=== PATIENT | male | born 1945 | race Caucasian/White ===

== ENCOUNTER 2018-10-01 15:04 | Outpatient (CLI) | payer MEDICARE, BC, SELFPAY ==
--- NOTE | 2018-10-01 11:21 | DI.RAD_ITS ---
SYMPTOM/DIAGNOSIS: NEW ONSET LT LUMBAR PAIN, M54.9, DORSALGIA LUMBOSACRAL SPINE: The vertebral bodies are intact. Prominent hypertrophic spurring and syndesmophyte formation are noted involving T 11-12 and T 12-L 1. There is a narrowed vacuum disc at L 5-S 1. There is rather severe facet joint DJD involving the mid and lower lumbar spine. The pedicle, spinous and transverse processes appear intact. There is no evidence of spondylosis or spondylolisthesis. The sacrum and sacroiliac joints are unremarkable. Incidental note is made of diffuse atherosclerotic changes involving the abdominal aorta and iliac vessels. There is a question regarding the possibility of a small saccular aneurysm at the L 3 level. Further assessment with ultrasound is suggested.
== END 2018-10-01 15:24 ==
PROVIDERS: PCP Family Medicine; Visit Provider Family Medicine
DX: M54.5 Low back pain (principal); M47.817 Spondylosis without myelopathy or radiculopathy, lumbosacral region
CPT/HCPCS: 72110

== ENCOUNTER 2018-10-09 00:45 | Outpatient (CLI) | payer MEDICARE, BC, SELFPAY ==
--- NOTE | 2018-10-09 07:54 | DI.US_ITS ---
SYMPTOM/DIAGNOSIS: SACCULAR ANEURYSM ON XRAY AORTA ULTRASOUND: Aorta ultrasound was performed according to protocol. Comparison is made with xray of 10/01/[address] of abdomen and pelvic dated 03/01/15. There is a question of a small saccular aneurysm arising from the distal abdominal aorta. It measures 1.4 cm. longitudinally by 3.6 cm. AP. The proximal and mid abdominal aorta are of normal caliber. The proximal iliac arteries are normal in caliber. IMPRESSION: Question of a saccular aneurysm involving the distal abdominal aorta measuring 3.[address] scan of the abdomen and pelvis is recommended for further evaluation.
== END 2018-10-09 01:05 ==
PROVIDERS: PCP Family Medicine; Visit Provider Family Medicine
DX: I71.4 Abdominal aortic aneurysm, without rupture (principal)
CPT/HCPCS: 76706

== ENCOUNTER 2018-10-16 00:37 | Outpatient (CLI) | payer MEDICARE, BC, SELFPAY ==
[2018-10-16 08:58] LABS: Anion Gap 5.2 mmol/L (3-11); BUN 19 mg/dL (7-18); CO2 30.8 mmol/L (21.0-32.0); CREATININE 0.99 mg/dL (0.70-1.30); Chloride 105 mmol/L (98-107); Glucose 124 mg/dL (70-100); Potassium 4.8 mmol/L (3.5-5.1); Sodium 141 mmol/L (136-145)
[2018-10-16] MEDS: Omnipaque 350 MG/ML 100 ML BTL IJ (09:56)
--- NOTE | 2018-10-16 10:00 | DI.CT_ITS ---
SYMPTOM/DIAGNOSIS: ANEURYSM SEEN ON US, I72.9 CTA ABDOMEN AND PELVIS: CT angiography was performed with multi slice acquisition and multi planar and 3D reconstruction. Comparison examination is 03/01/15. Comparison ultrasound is 10/09/18. No acute abnormality is seen in the lung bases. Emphysematous changes are noted. The liver, spleen, gallbladder, bile ducts, pancreas and adrenal glands are unremarkable. The kidneys show symmetric and normal enhancement. No obstruction is seen. The urinary bladder is intact. The prostate gland does appear to be enlarged with multiple calcifications. There is diverticulosis of the colon but no evidence of acute diverticulitis. No evidence of bowel obstruction or inflammation is seen. No evidence to suggest an acute appendicitis are present. There is atherosclerosis of the abdominal aorta. Maximum diameter of the abdominal aorta is noted to be 3.0 cm. No evidence of a saccular aneurysm is appreciated. The celiac axis is unremarkable. There is mild calcification of the origin of the superior mesenteric artery but no significant stenosis is seen. The inferior mesenteric artery appears grossly unremarkable. There is calcification seen at the origins of both renal arteries, left greater than right. There does appear to be mild to moderate narrowing at the origin of the left renal artery. Degenerative changes are seen in the spine. IMPRESSION: 1. Maximum diameter of the abdominal aorta is 3.0 cm. consistent with a small abdominal aortic aneurysm. No evidence of a saccular aneurysm is seen. 2. Atherosclerosis of the abdominal aorta and its branches. 3. Diverticulosis of the colon but no evidence of acute diverticulitis. 4. Enlarged prostate gland.
== END 2018-10-16 00:57 ==
PROVIDERS: PCP Family Medicine; Visit Provider Family Medicine
DX: I71.4 Abdominal aortic aneurysm, without rupture (principal); K57.30 Diverticulosis of large intestine without perforation or abscess without bleeding; N40.0 Benign prostatic hyperplasia without lower urinary tract symptoms
CPT/HCPCS: 80048; 74174; J3490

== ENCOUNTER 2019-06-20 13:02 | Emergency (ER) | payer MEDICARE, BC, SELFPAY ==
[2019-06-20] VITALS (36 sets, daily range): BP systolic 121–159; BP diastolic 64–90; PULSE 55–71; RESP 11–34; TEMP 36.7; O2SAT 94–99
--- NOTE | 2019-06-20 13:32 | DI.CT_ITS ---
SYMPTOMS/DIAGNOSIS: LEFT ARM NUMBNESS LAST NIGHT CT BRAIN: Noncontrast examination was performed. Comparison is 12/02/17. The ventricles and sulci are consistent with the patient's age. There are areas of decreased attenuation of the white matter consistent with small vessel ischemic disease. No acute territorial infarct, hemorrhage, midline shift or mass effect was identified. There is again seen a small area of encephalomalacia in the high right parietal region. The visualized paranasal sinuses are clear except for mild mucosal thickening in the left maxillary sinus, but no fluid levels are seen. The mastoid air cells are well pneumatized. No skull fracture is seen. There is again seen a merritt hole in the right high parietal bone. IMPRESSION: No acute intracranial process.
--- NOTE | 2019-06-20 13:35 | ED.GENADUL_ITS ---
Discharge Plan Disposition Patient Disposition: AGAINST MEDICAL ADVICE Discharge Details Chief Complaint: Chest Pain Clinical Impression: Chest pain, Brain TIA Primary Care Provider: Camacho Barrera ED Provider: Dean Guerrero Home Meds and New Rx's Prescriptions: No Action magnesium oxide [MagOx] 400 mg tablet 200 mg PO DAILY RF: 0 nitroglycerin [Nitrostat] 0.4 mg tablet, sublingual 0.4 mg SL ONCE RF: 0 aspirin 81 mg tablet,delayed release (DR/EC) 81 mg PO .qod Qty: 90 RF: 0 atorvastatin 10 mg tablet 10 mg PO DAILY Qty: 90 RF: 3 lisinopril 20 mg tablet 20 mg PO DAILY Qty: 90 RF: 3 Combigan 10 ML drops 1 drp OU BID RF: 0 Discharge Instructions Additional Instructions: I am concerned that you had a stroke and you may have had a heart attack. Your condition may worsen suddenly. You may have life-threatening or lifestyle modifying disease and you are leaving AGAINST MEDICAL ADVICE. Please return at any time for further work-up and treatment. 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 Patient also with 10-minute episode of left upper extremity numbness and associated dizziness last night. Concern for ACS. ECG was reviewed and interpreted by me: Sinus rhythm 65 bpm, occasional PVCs, low voltage, normal axis, T waves are inverted lead I to aVL and V1 to V3, patient did have T wave inversions noted laterally on ECG 07/25/2018. Plan to check troponin. Consider TIA. Plan to obtain CT of the head. Patient does not typically take aspirin as he has had significant nosebleeds while on aspirin for greater than 2 weeks. I think he would benefit from a single dose of aspirin today and he is agreeable to this. 15:45 --CT head interpreted by radiology: No acute intracranial hemorrhage, chronic white matter ischemic changes. Chest x-ray interpreted by radiology: No acute process. Initial labs reviewed and nondiagnostic. Troponin negative. Patient reassessed and pain free. I called and spoke with Dr. Castano, hospitalist, who notes that unfortunately did not have nuclear medicine capability for the next 4 days. He requested that I call cardiology at [facility] to discuss case and plan for diagnostics with them. [facility] transfer center was contacted. 16:23 --I spoke with putty tinter maker at [facility] who will accept the patient in transfer for Dr. Miller. I discussed plan to transfer the patient and patient refusing transfer and further care here. He does not wish to be admitted or transferred. He declines plan and wishes to leave against medical advise. I reiterated my concerns to the patient and explained the risks of leaving prior to completion of workup and treatment. I specifically emphasized the possibility of life-threatening or lifestyle modifying disease that would not be appropriately treated if they leave. Patient verbalized understanding of my concerns and the potential for life threatening or lifestyle modifying disease. Patient has capacity to make informed decision. I again explained my concerns and urged to to stay for treatment as outlined. Patient continued to refuse. I then discussed potential less ideal alternatives to diagnostic/treatment plan as outlines and patient refused - he was only agreeble to following up outpatient and returning to ED for worsening symptoms. I encouraged him to follow-up with primary care physician [facility] or return to the Emergency Department at any time for further treatment. HPI General Mode of arrival: ambulatory . Date/Time Provider Initiated Documentation: 06/20/19 13:15 . Limitations to Documentation: no limitations . Information obtained by: patient . HPI Narrative: 73-year-old male with multiple medical problems including history of coronary artery disease status post stent, hypertension, hyperlipidemia , atrial fibrillation status post ablation, brain abscess affecting strength on left side of his body with ongoing mild chronic weakness, here with chief complaint of chest pain. Patient notes he woke up this morning with chest discomfort. Pain is described as ache. Pain localized to mid left chest and upper left chest. Pain is intermittent since onset. It has persisted today. Pain is not exertional. Pain does not radiate to his back. Patient also notes that last night while resting in recliner he suddenly experienced some numbness in his left arm and specifically worse in his left fourth digit with associated dizziness. This episode lasted about 10 minutes and occurred around 5 PM yesterday. He has no ongoing numbness or new weakness at this time. No headache. No dizziness. Related Data Home Medications Medication Instructions Recorded Confirmed Zofia 1 drp OU BID 04/03/18 06/21/19 magnesium oxide 400 mg (241.3 mg 200 mg PO DAILY tab 08/04/18 06/21/19 magnesium) tablet nitroglycerin 0.4 mg sublingual 0.4 mg SL ONCE 08/04/18 06/21/19 tablet atorvastatin 10 mg tablet 10 mg PO DAILY #90 tab 08/20/18 06/21/19 lisinopril 20 mg tablet 20 mg PO DAILY #90 tab 01/07/19 06/21/19 aspirin 81 mg tablet,delayed 81 mg PO .qod #90 tab 06/21/19 06/21/19 release Previous Rx's Medication Instructions Recorded atorvastatin 10 mg tablet 10 mg PO DAILY #90 tab 08/20/18 lisinopril 20 mg tablet 20 mg PO DAILY #90 tab 01/07/19 aspirin 81 mg tablet,delayed 81 mg PO .qod #90 tab 06/21/19 release Allergies Allergy/AdvReac Type Severity Reaction Status Date / Time venom-honey bee Allergy Severe HIVES Verified 06/21/19 13:40 [bee venom (honey bee)] TACHYCARDIA Penicillins Allergy Intermediate HIVES Verified 06/21/19 13:40 levetiracetam [From [facility]] AdvReac Severe leukopenia Verified 06/21/19 13:40 aspirin AdvReac Intermediate Nosebleeds Verified 06/21/19 13:40 ceftriaxone AdvReac Intermediate Leukopenia Verified 06/21/19 13:40 simvastatin AdvReac Intermediate LEG PAIN Verified 06/21/19 13:40 DR MCLEOD SHRIMP Allergy Intermediate HIVES , Uncoded 06/21/19 13:40 NAUSEA General Stated Complaint: Chest Pain PALOMA: 2 Review of Systems Review of Systems All systems reviewed & are unremarkable except as noted in HPI and below Constitutional Denies fever(s) Cardiovascular Reports as per HPI and Denies dyspnea Respiratory Denies dyspnea Neurologic Reports as per HPI COUNTS INCLUDE 234 BEDS AT THE [facility] Medical History Abdominal aortic aneurysm (AAA) 3.0 cm to 5.5 cm in diameter in male (Chronic) Actinic keratosis (Resolved 08/16/13) Atherosclerosis of [place] coronary artery of [place] heart without angina pectoris (Chronic 05/01/11) Atrial fibrillation (Chronic) Benign prostatic hypertrophy (Chronic) Closed stable burst fracture of seventh thoracic vertebra with routine healing (Resolved 12/23/16) Coronary atherosclerosis of [place] coronary vessel (Chronic 05/01/11) Coronary disease (Chronic) H/O: urinary stone (Chronic) Hemiparesis, left (Chronic 02/07/15) Hx of colonic polyps (Chronic) 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 Brother No problems noted. 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 What type of physical activity do you participate in: walking Seatbelt use: always Drive intox or ride w/intox lease purchase truck driver: No Working smoke detector in home: Yes Fire extinguisher in home: Yes Carbon monox detector in home: Yes Do you feel safe in your relationship?: Yes Exam Const General: cooperative and no acute distress [facility] Head: normocephalic and atraumatic Mouth: moist mucous membranes Eyes Conjunctivae: normal conjunctivae Sclera: normal sclerae EOM: EOM intact bilaterally Neck Neck: trachea midline and supple Resp Auscultation: clear to auscultation bilaterally, no rales, no rhonchi and no wheezes Cardio Jugular venous pressure: no JVD Rate: regular rate and not tachycardic Rhythm: regular rhythm GI Palpation: soft, not firm, no guarding, no masses, not rigid and nontender Skin General skin exam: no rashes or lesions noted Neuro General: alert, awake, oriented x3 and tone normal Cognition: normal cognition Speech: speech normal Motor: muscle tone normal throughout and strength 5/5 throughout Sensory Exam: no sensory deficits noted Extrem General: no calf tenderness and no edema Psych Appearance: grossly normal Course Vital Signs Temperature 36.7 C 06/20/19 13:07 Pulse 68 06/20/19 13:07 Respiratory Rate 16 06/20/19 13:07 Pulse Oximetry 98 06/20/19 13:07 Temperature 36.7 C 06/20/19 13:07 Temperature Source Tympanic 06/20/19 13:07 Pulse 68 06/20/19 13:07 Respiratory Rate 14 06/20/19 13:15 Respiratory Effort Non-Labored 06/20/19 13:15 Respiratory Depth Normal 06/20/19 13:15 Respiratory Pattern Normal 06/20/19 13:15 Blood Pressure Position Supine 06/20/19 13:07 Pulse Oximetry 98 06/20/19 13:07
[2019-06-20 13:47] LABS: Abs Immature Grans 0.02 k/cumm (0.0-0.09); Absolute Eosinophil Count 4.62 k/cumm (0.0-0.7); Absolute Lymphocyte Count 1.84 k/cumm (1.2-3.4); Absolute Monocyte Count 0.81 k/cumm (0.11-0.7); Basophils % 0.3; Eosinophils % 39.2; HCT 42.5 % (40.0-50.0); HGB 14.8 g/dL (13.5-17.5); Immature Grans % 0.2; Lymphocytes % 15.6; Mean Corp. HGB Concentration 34.8 g/dL (32.0-36.0); Mean Corpuscular Hemoglobin 32.9 pg (27.0-33.0); Mean Corpuscular Volume 94.4 fL (80-95); Mean Platelet Volume 11.3 fL (8.0-11.0); Monocytes % 6.9; Neutrophils % 37.8; Platelet Count 212 x1000/uL (130-400); RBC Distribution Width 12.5 % (11.8-14.1); White Blood Cell Count 11.79 k/cumm (4.4-10.8)
[2019-06-20 14:03] LABS: ALT 28 U/L (12-78); AST 19 U/L (15-37); Albumin 3.8 g/dL (3.4-5.0); Alkaline Phosphatase 89 U/L (46-116); Anion Gap 8.1 mmol/L (3-11); BUN 22 mg/dL (7-18); Bilirubin, Total 0.9 mg/dL (0.2-1.0); CO2 28.9 mmol/L (21.0-32.0); CREATININE 0.81 mg/dL (0.70-1.30); Calcium 9.5 mg/dL (8.5-10.1); Chloride 103 mmol/L (98-107); Glucose 126 mg/dL (70-100); Magnesium 2.2 mg/dL (1.8-2.4); Potassium 4.7 mmol/L (3.5-5.1); Sodium 140 mmol/L (136-145); Total Protein 7.3 g/dL (6.4-8.2); Troponin I < 0.05 ng/mL (0.00-0.06)
[2019-06-20 14:07] LABS: Absolute Basophil Count 0.04 k/cumm (0.0-0.2); Absolute Neutrophil Count 4.46 k/cumm (1.2-6.7)
[2019-06-20 14:08] LABS: Diff Comment Agrees w/ Instrument; RBC Morphology Normal
--- NOTE | 2019-06-20 14:52 | DI.RAD_ITS ---
SYMPTOMS/DIAGNOSIS: CHEST PAIN CHEST X-RAY, PA AND LATERAL: Comparison is 07/24/18. The heart size is stable. Pulmonary vasculature is within normal limits. The lungs are clear. No effusions or pneumothoraces are identified. There is a pectus excavatum deformity. Stable degenerative changes are seen in the spine. IMPRESSION: No acute pulmonary process.
--- NOTE | 2019-06-20 15:00 | DI.VRAD_ITS ---
EXAM: CT Head Without Contrast EXAM DATE/TIME: 06/20/2019 1:34 PM CLINICAL HISTORY: 73 years old, male; Numbness / parasthesia; Patient HX: Left arm numbness TECHNIQUE: Imaging protocol: Computed tomography images of the head without contrast. Coronal and sagittal reformatted images were created and reviewed. Radiation optimization: All CT scans at this facility use at least one of these dose optimization techniques: automated exposure control; mA and/or kV adjustment per patient size (includes targeted exams where dose is matched to clinical indication); or iterative reconstruction. COMPARISON: CT HEAD WITHOUT CONTRAST 12/02/2017 9:08 AM FINDINGS: Brain: No acute intracranial hemorrhage. There is mild diffuse heterogeneity of the white matter attenuation, consistent with chronic white matter ischemic changes. Mild cerebral atrophy Ventricles: Normal. No ventriculomegaly. Bones/joints: Stable Craniectomy in the right vertex. Sinuses: Visualized sinuses are unremarkable. No fluid levels. Mastoid air cells: Visualized mastoid air cells are well aerated. No mastoid effusion. Soft tissues: Unremarkable. IMPRESSION: No acute intracranial hemorrhage. Dictated and Authenticated by: Nathan Blair MD. Ordering:CARMEN Moran MD
--- NOTE | 2019-06-20 15:00 | DI.VRAD_ITS ---
EXAM: XR Chest, 2 Views EXAM DATE/TIME: 06/20/2019 1:34 PM CLINICAL HISTORY: 73 years old, male; Chest pain; Type not specified TECHNIQUE: Imaging protocol: XR of the chest, 2 views. COMPARISON: CR CHEST 2 VIEWS PA,LAT 07/24/2018 1:09 PM FINDINGS: Lungs: Unremarkable. No consolidation. Pleural space: Unremarkable. No pleural effusion. No pneumothorax. Heart/Mediastinum: Stable cardiac silhouette Bones/joints: Osseous structures are stable IMPRESSION: No acute process Dictated and Authenticated by: Nathan Blair MD. Ordering:CARMEN Moran MD
[2019-06-20] MEDS: Aspirin 81 MG CHEW PO (16:44)
--- NOTE | 2019-06-20 16:44 | NUR.NOTE ---
Nursing Note: pt alert/oriented/ambulatory with steady gait. AMA to home. Risks of leaving AMA reviewed with patient, including but not limited to: worsening of condition and Pt verbalized understanding of these risks and still wished to leave AMA. AMA paperwork signed.
[2019-06-20 17:02] LABS: Troponin I < 0.05 ng/mL (0.00-0.06)
== END 2019-06-20 16:48 | disposition left against medical advice (07) ==
PROVIDERS: Emergency Provider Student in an Organized Health Care Education/Training Program; PCP Family Medicine
DX: R07.9 Chest pain, unspecified (principal); G45.9 Transient cerebral ischemic attack, unspecified; R20.2 Paresthesia of skin; R42 Dizziness and giddiness; Z53.29 Procedure and treatment not carried out because of patient's decision for other reasons; Z95.5 Presence of coronary angioplasty implant and graft; I48.91 Unspecified atrial fibrillation; I10 Essential (primary) hypertension; I25.10 Atherosclerotic heart disease of native coronary artery without angina pectoris
CPT/HCPCS: 36415; 80053; 93005; 99285; 70450; 71046; 83735; 84484; 85025; 93010

== ENCOUNTER 2019-07-07 00:47 | Outpatient (CLI) | payer MEDICARE, BC, SELFPAY ==
--- NOTE | 2019-07-07 07:08 | MERGEMPI_ITS ---
*[facility]* *[facility]* [address] [place] [address] Myocardial Perfusion Imaging - SPECT Manolo protocol Date of study: 07/07/2019 *PATIENT PRESENTATION* Height: 182.9cm (72in) Blood Pressure: Weight: 100kg (220lb) BSA: 2.28m^2 Referring physician: Darrius Mosley Ordering physician: Camacho Barrera Impressions: - Indeterminate exercise stress test due to inadequate heart rate thus changed to pharmacological stress test. - Normal myocardial perfusion and contraction after pharmacological stress. - Low risk of cardiac events. Summary: 1. Myocardial perfusion imaging: No myocardial perfusion defects noted. 2. The calculated left ventricular ejection fraction after stress: 68%. LV global systolic function is normal. No left ventricular regional motion abnormality. 3. Stress: The target heart rate was not achieved. There is a normal resting blood pressure with an appropriate response to stress. Exercise capacity is markedly diminished for age. 4. Baseline ECG: Occasional isolated ventricular ectopy with left bundle branch block with an inferior axis QRS morphology. Nonspecific ST changes. 5. Treadmill exercise testing was performed using the Manolo protocol. The patient exercised for 3 min, to protocol stage 2, to a maximal work rate of 4.7mets. Exercise was terminated due to gait disturbance. Indication: I25.10. History: REASON FOR TESTING: PATIENT TESTING FOR FURTHER RISK STRATIFICATION. HE PRESENTED TO THE ER ON 06/20/19 WITH SOB AND NONRADIATING LEFT SIDED CHEST PAIN THAT LASTED APPROXIMATELY 5 HOURS. PATIENT DENIES CHEST PAIN UPON ARRIVAL TO TESTING TODAY. SIGNIFICANT PAST MEDICAL HISTORY: PATIENT HAD 5 STENTS PLACED IN 2010, ATRIAL FIBRILLATION STATUS POST ABLATION, BRAIN ABSCESSES WITH RESIDUAL MILD LEFT SIDED WEAKNESS. SMOKING STATUS: REMOTE 3 YEAR HISTORY OF SMOKING, 1/2 PPD. EXERCISE ROUTINE: VERY ACTIVE IN AND AROUND THE HOUSE. Risk factors: Family history of coronary artery disease. Hypertension. Dyslipidemia. Cholesterol: 143mg/dl. HDL: 33mg/dl. LDL: 101mg/dl. Triglycerides: 93mg/dl. ALLERGIES: BEES, PENICILLIN, KEPPRA, ASPIRIN, CEFTRIAXONE, SIMVASTATIN, SHRIMP. MEDICATIONS: COMBIGAN OU BID, MAGNESIUM OXIDE 200 MG DAILY, NITROGLYCERIN 0.4 MG PRN, ATORVASTATIN 10 MG DAILY, LISINOPRIL 20 MG DAILY, ASPIRIN 81 MG EVERY OTHER DAY. Imaging Technique: Protocol: Manolo protocol. Acquisition: Gated SPECT; 1 day - rest/stress. The patient was imaged in the supine position. Attenuation correction used. Isotope administration: - Rest. Tc[99m]-sestamibi. Dose: 10.3mCi. Injection time: 09:40 AM. Injection to stress time: 00:45. - Stress. Tc[99m]-sestamibi. Dose: 30.3mCi. Injection time: 01:00 PM. 1-2 min before end of exercise Baseline ECG: SINUS RHYTHM. HR 60 BPM. T WAVES INVERTED IN LEADS , V2, V3, V4 & V5 PRE-EXERCISE. Occasional isolated ventricular ectopy with left bundle branch block with an inferior axis QRS morphology. Nonspecific ST changes. Stress protocol: + +---+ + + !Stage !HR !BP (mmHg) !Comments ! + +---+ + + !Baseline supine !60 !156/90 (112)! ! + +---+ + + !Baseline standing !66 !138/72 (94) ! ! + +---+ + + !Stage I; 1.7mph, 10degrees; 3 min!111! ! ! + +---+ + + !Peak stress !119! ! ! + +---+ + + !Baseline !61 ! ! ! + +---+ + + !1 min !70 !128/80 (96) !Inject Regadenoson.! + +---+ + + !3 min !66 !130/70 (90) ! ! + +---+ + + !6 min !63 !118/68 (85) ! ! + +---+ + + !1 min !---! !Inject Regadenoson.! + +---+ + + * Stress results: STRESS TEST ENDED IN 3 MINUTES & 5 SECONDS DUE TO INABILITY TO WALK ANY FURTHER SAFELY ON THE TREADMILL. NORMAL HEART RATE AND BLOOD PRESSURE RESPONSE TO EXERCISE. MAX HEART RATE = 119 % OF TARGET HEART RATE = 80% APPROXIMATE MET'S ACHIEVED = 4.73 INTERMITTENT PVCs DURING EXERCISE. MULTIFOCAL VENTRICULAR PVC PAIRS NOTED X2 DURING EXERCISE. NO ANGINA. NO SIGNIFICANT ST SEGMENT CHANGES. FUNCTIONAL CAPACITY FOR EXERCISE = MARKEDLY DIMINISHED. TRANSITIONED TO LEXISCAN PROTOCOL. LEXISCAN STRESS TEST ENDED IN 6 MINUTES & 22 SECONDS. PT EXPERIENCED NO SIGNIFICANT SIDE EFFECTS FROM LEXISCAN INJECTION. NORMAL HEART RATE AND BLOOD PRESSURE RESPONSE TO LEXISCAN INJECTION. INTERMITTENT UNIFOCAL PVCs NO ANGINA. NO SIGNIFICANT ST SEGMENT CHANGES. Maximal heart rate during stress was 119bpm (81% of maximal predicted heart rate). The maximal predicted heart rate was 147bpm. The target heart rate was not achieved. There is a normal resting blood pressure with an appropriate response to stress. The rate-pressure product for the peak heart rate and blood pressure was 9360mm Hg/min. Exercise capacity is markedly diminished for age. Myocardial perfusion: Imaging information: gated. The image quality was good. Left ventricular size is normal. No myocardial perfusion defects noted. Ventricular Function (Wall Motion): The calculated left ventricular ejection fraction after stress: 68%. LV global systolic function is normal. No left ventricular regional motion abnormality. Study data: Darrius Mosley MD supervised and was readily available during the procedure. This study was interpreted by [facility]. Study status: Routine. Consent: The risks, benefits, and alternatives to the procedure were explained to the patient and informed consent was obtained. Procedure: Initial setup. A baseline ECG was recorded. Surface ECG leads and manual cuff blood pressure measurements were monitored. Heart sounds: Normal. Lung sounds: Normal. Treadmill exercise testing was performed using the Manolo protocol. The patient exercised for 3 min, to protocol stage 2, to a maximal work rate of 4.7mets. Exercise was terminated due to gait disturbance. Study completion: All catheters inserted during the procedure were removed. The patient tolerated the procedure well and was discharged from the lab. Discharge: The patient left the laboratory in stable condition. Birthdate: Patient birthdate: 1945. Sex: Gender: male. Study date: Study date: 07/07/2019. Study time: 00:01 AM. Signature Documentation: - The imaging portion of this study was interpreted by [employer] Estate Acquisition Analyst Darrius Mosley MD. - The Stress ECG portion of this study was interpreted by Darrius Mosley MD. Electronically signed by Darrius Mosley 07/07/2019 16:53
[2019-07-07] MEDS: Regadenoson 0.4 MG/5 ML SYR IVP (13:49)
== END 2019-07-07 01:07 ==
PROVIDERS: PCP Family Medicine; Visit Provider Family Medicine
DX: I25.10 Atherosclerotic heart disease of native coronary artery without angina pectoris (principal); R07.9 Chest pain, unspecified; R06.02 Shortness of breath; I10 Essential (primary) hypertension; Z95.5 Presence of coronary angioplasty implant and graft; Z82.49 Family history of ischemic heart disease and other diseases of the circulatory system
CPT/HCPCS: 78452; 93016; 93018; 93017; J2785

== ENCOUNTER 2020-06-27 01:29 | Outpatient (CLI) | payer MEDICARE, BC, SELFPAY ==
--- NOTE | 2020-06-27 07:15 | DI.US_ITS ---
EXAM: US AAA DIAGNOSTIC CLINICAL HISTORY: Yearly surveillance, F/U AAA,I71.4 FINDINGS: Abdominal Aorta: Proximal: 2.7 cm Mid: 2.4 cm Distal: 2.9 cm Iliac's: Right: 1.5 cm Left: 1.3 cm Atherosclerotic calcification is noted throughout. IMPRESSION: Stable mild dilatation of the distal abdominal aorta to 2.9 cm. DATA REPOSITORY:
== END 2020-06-27 01:49 ==
PROVIDERS: PCP Family Medicine; Visit Provider Family Medicine
DX: I71.4 Abdominal aortic aneurysm, without rupture (principal)
CPT/HCPCS: 76775

== ENCOUNTER 2020-07-25 08:01 | Outpatient (CLI) | payer MEDICARE, BC, SELFPAY ==
[2020-07-27 09:35] LABS: SARS-CoV-2 RNA Undetected (Undetected); SARS-CoV-2 Specimen Source Nasopharynx
== END 2020-07-25 08:21 ==
PROVIDERS: PCP Family Medicine; Visit Provider Family Medicine
DX: R05 Cough (principal)
CPT/HCPCS: U0003

== ENCOUNTER 2020-10-31 11:36 | Outpatient (REF) | payer MEDICARE, BC, SELFPAY | END 2020-10-31 11:56 | LOC: LBN 11:36 | PROVIDERS: PCP Family Medicine; Visit Provider Family Medicine | DX: R30.0 Dysuria (principal) | CPT/HCPCS: 87077; 87086; 87186 ==

== ENCOUNTER 2020-11-14 10:45 | Outpatient (REF) | payer MEDICARE, BC, SELFPAY | END 2020-11-14 11:05 | LOC: LBN 10:45 | PROVIDERS: PCP Family Medicine; Visit Provider Family Medicine | DX: R30.0 Dysuria (principal) | CPT/HCPCS: 87077; 87086; 87186 ==

== ENCOUNTER 2020-12-05 01:26 | Outpatient (CLI) | payer MEDICARE, BC, SELFPAY ==
--- NOTE | 2020-12-05 08:35 | DI.MRI_ITS ---
EXAM: MR LUMBAR SPINE WO CLINICAL HISTORY: Low back pain, > 3 months; m54.5. TECHNIQUE: Multiplanar multisequence MRI of the Lumbar spine was performed. COMPARISON: No exams were available for comparison FINDINGS: Bones: The last intervertebral disc space is designated the L5/S1 level for the numbering purpose of this examination. The vertebral body heights are well maintained. Alignment is satisfactory. Degene rative endplate signal changes are seen at multiple levels in the lumbar spine. Cord: The conus tip ends at the T12 level. It is of normal size and signal intensity. T12-L1: No disc herniations or bulges are present. No central spinal canal or neural foraminal stenos is. L1-2: No disc herniations or bulges are present. No central spinal canal or neural foraminal stenosis . L2-3: No disc herniations or bulges are present. No central spinal canal or neural foraminal stenosis . L3-4: There is a mild diffuse disc bulge. Mild degenerative changes of the facets and ligamentum fla vum hypertrophy are noted. No significant central spinal canal stenosis is seen.There is mild bilate ral neural foraminal stenosis. L4-5: There is a diffuse disc bulge. There are hypertrophic changes of the facets and ligamentum fla vum. These all contribute to cause moderately severe central spinal canal stenosis.There is mild-to- moderate bilateral neural foraminal stenosis, left greater than right. L5-S1: No focal disc herniation. There are degenerative changes of the facets. No central spinal ca nal stenosis.There is moderate bilateral neural foraminal stenosis, left greater than right. Soft tissues: The visualized SI joints and sacrum are well maintained. The paraspinal soft tissues ar e unremarkable. IMPRESSION: Multilevel degenerative changes in the lumbar spine as described above. The findings are most marked at L4-L5. DATA REPOSITORY:
== END 2020-12-05 01:46 ==
PROVIDERS: PCP Family Medicine; Visit Provider Family Medicine
DX: M47.816 Spondylosis without myelopathy or radiculopathy, lumbar region (principal); M48.061 Spinal stenosis, lumbar region without neurogenic claudication
CPT/HCPCS: 72148

== ENCOUNTER → 2020-12-27 14:01 | Outpatient (BNVA) | payer MEDICARE, BC, SELFPAY | PROVIDERS: PCP Family Medicine; Referring Provider Family Medicine; Visit Provider Internal Medicine Cardiovascular Disease | DX: I25.10 Atherosclerotic heart disease of native coronary artery without angina pectoris (principal); I48.91 Unspecified atrial fibrillation; Z95.5 Presence of coronary angioplasty implant and graft; I10 Essential (primary) hypertension | CPT/HCPCS: 99203; 99215 ==

== ENCOUNTER 2021-01-10 13:43 | Outpatient (CLI) | payer MEDICARE, BC, SELFPAY ==
--- NOTE | 2020-12-27 13:43 | RT.EKG_ITS ---
APPROVED REPORT Exam: Resting ECG Patient Location: O HR:67 bpm ECG Measurements Heart Rate 67 AXIS [place] 140 P 91 QRSd 97 QRS 38 QT 411 T 129 QTc 434 Conclusion Sinus rhythm...normal P axis, V-rate 50- 99 Low voltage, precordial leads...precordial leads <1.0mV Abnormal T, consider ischemia, lateral leads...T <-0.20mV, I aVL V5 V6
== END 2021-01-10 13:44 | disposition home or self-care (01) ==
LOC: DI.CARD 13:45
PROVIDERS: PCP Family Medicine; Visit Provider Internal Medicine Cardiovascular Disease
DX: I25.10 Atherosclerotic heart disease of native coronary artery without angina pectoris (principal); I48.91 Unspecified atrial fibrillation
CPT/HCPCS: 93010

== ENCOUNTER → 2021-02-13 08:28 | Outpatient (BNVA) | payer MEDICARE, BC, SELFPAY | PROVIDERS: PCP Family Medicine; Referring Provider Family Medicine; Visit Provider Surgery | DX: K64.8 Other hemorrhoids (principal); I48.91 Unspecified atrial fibrillation; Z79.01 Long term (current) use of anticoagulants | CPT/HCPCS: 99203; 99215 ==

== ENCOUNTER 2021-05-04 10:20 | Outpatient (REF) | payer MEDICARE, BC, SELFPAY ==
[2021-05-05 11:38] LABS: COVID-19 RT-PCR UVMMC Result Negative (Negative)
== END 2021-05-04 10:21 | disposition home or self-care (01) ==
LOC: LBO 10:20
PROVIDERS: PCP Family Medicine; Visit Provider Physician Assistant
DX: Z20.822 Contact with and (suspected) exposure to COVID-19 (principal)
CPT/HCPCS: U0003; U0005

== ENCOUNTER → 2021-07-13 10:48 | Outpatient (BNVA) | payer MEDICARE, BC, SELFPAY | PROVIDERS: PCP Family Medicine; Referring Provider Family Medicine; Visit Provider Internal Medicine Cardiovascular Disease | DX: I25.10 Atherosclerotic heart disease of native coronary artery without angina pectoris (principal); I10 Essential (primary) hypertension; I48.91 Unspecified atrial fibrillation; Z79.01 Long term (current) use of anticoagulants | CPT/HCPCS: 99213 ==

== ENCOUNTER 2021-09-25 10:40 | Outpatient (CLI) | payer MEDICARE, BC, SELFPAY ==
--- NOTE | 2021-09-25 10:30 | RT.EKG_ITS ---
APPROVED REPORT Exam: Resting ECG Reason for Exam: Atrial Fibrillation Patient Location: O HR:126 bpm ECG Measurements Heart Rate 126 AXIS [place] 173 P -72 QRSd 85 QRS 68 QT 340 T 133 QTc 493 Conclusion Atrial fibrillation V-rate> 99 Ventricular premature complex...V complex w/ short R-R interval
== END 2021-09-25 10:41 | disposition home or self-care (01) ==
LOC: DI.KIM 10:41
PROVIDERS: PCP Family Medicine; Visit Provider Family Medicine
DX: I48.91 Unspecified atrial fibrillation (principal)
CPT/HCPCS: 93010

== ENCOUNTER → 2021-09-27 14:42 | Outpatient (BNVA) | payer MEDICARE, BC, SELFPAY | PROVIDERS: PCP Family Medicine; Referring Provider Family Medicine; Visit Provider Internal Medicine Cardiovascular Disease | DX: I25.10 Atherosclerotic heart disease of native coronary artery without angina pectoris (principal); I48.91 Unspecified atrial fibrillation; I10 Essential (primary) hypertension; Z79.01 Long term (current) use of anticoagulants | CPT/HCPCS: 99214 ==

== ENCOUNTER 2021-11-01 02:35 | Outpatient (CLI) | payer MEDICARE, BC, SELFPAY ==
[2021-11-01 14:41] LABS: ALT 31 U/L (16-63); AST 19 U/L (15-37); Albumin 3.6 g/dL (3.4-5.0); Alkaline Phosphatase 85 U/L (46-116); Anion Gap 7.5 mmol/L (3-11); BUN 15 mg/dL (7-18); Bilirubin, Total 0.6 mg/dL (0.2-1.0); CO2 31.5 mmol/L (21.0-32.0); CREATININE 0.9 mg/dL (0.70-1.30); Calcium 9.2 mg/dL (8.5-10.1); Calculated LDL 93 mg/dL (<100); Chloride 102 mmol/L (98-107); Cholesterol 165 mg/dL (<200); Glucose 115 mg/dL (74-106); HDL Cholesterol 45 mg/dL (40-60); Potassium 3.9 mmol/L (3.5-5.1); Sodium 141 mmol/L (136-145); Total Protein 6.8 g/dL (6.4-8.2); Triglyceride 138 mg/dL (<150)
== END 2021-11-01 02:36 | disposition home or self-care (01) ==
LOC: LBO 02:35
PROVIDERS: PCP Family Medicine; Visit Provider Family Medicine
DX: I25.10 Atherosclerotic heart disease of native coronary artery without angina pectoris; R73.09 Other abnormal glucose
CPT/HCPCS: 36415; 80053; 80061

== ENCOUNTER → 2022-01-08 10:55 | Outpatient (BNVA) | payer MEDICARE, SELFPAY | PROVIDERS: PCP Family Medicine; Visit Provider Internal Medicine Cardiovascular Disease | DX: I25.10 Atherosclerotic heart disease of native coronary artery without angina pectoris (principal); I48.91 Unspecified atrial fibrillation; Z79.01 Long term (current) use of anticoagulants | CPT/HCPCS: 99213 ==

== ENCOUNTER 2022-02-06 15:37 | Outpatient (REF) | payer MEDICARE, SELFPAY ==
[2022-02-08 12:35] LABS: COVID-19 RT-PCR UVMMC Result Negative (Negative)
== END 2022-02-06 15:38 | disposition home or self-care (01) ==
LOC: LBN 15:37
PROVIDERS: PCP Family Medicine; Visit Provider Nurse Practitioner
DX: R05.9 Cough, unspecified (principal); Z20.822 Contact with and (suspected) exposure to COVID-19
CPT/HCPCS: U0003

== ENCOUNTER 2022-04-19 03:00 | Observation (INO) | payer MEDICARE, SELFPAY ==
[2022-04-19] VITALS (24 sets, daily range): BP systolic 119–178; BP diastolic 55–87; PULSE 43–91; RESP 16–20; TEMP 36.1–36.7; O2SAT 91–100
--- NOTE | 2022-04-19 03:00 | DI.CT_ITS ---
Exam(s) CT HEAD CERV SPINE FACIAL WO EXAM: CT HEAD CERV SPINE FACIAL WO CLINICAL HISTORY: fall, etoh, hit right head. TECHNIQUE: Imaging Protocol: Axial computed tomography images with coronal and sagittal reformatted images were created and reviewed COMPARISON: CT CT HEAD WO from 06/20/2019 FINDINGS: CT Head: Ventricles and Extra axial spaces: Normal in size and morphology for the patient's age. Hemorrhage: None. Cerebral parenchyma: No acute territorial infarct. There is again seen an area of decreased attenuat ion in the high right parietal region which appears unchanged. Midline shift: None. Brainstem/Cerebellum: Normal. Calvarium: Normal. Visualized Paranasal sinuses/Mastoids: There is mild mucosal thickening in the visualized paranasal s inuses. No air-fluid levels are seen. The mastoid air cells are clear. Soft Tissues: There may be mild soft tissue thickening along the frontal scalp. CT Face: Facial Bones: No definite fracture is noted in facial bones. Sinuses and Mastoids: Mild mucosal thickening in the visualized paranasal sinuses but no fluid level s. Obstruction of the right ostiomeatal complex. Globes, extraocular muscles, optic nerves and retrobulbar fat: Normal. Upper aerodigestive tract: Normal. Mandible and bilateral temporomandibular joints: Normal. Soft tissues: Normal. CT Cervical Spine: Bones: No acute fracture or subluxation. Degenerative changes are seen in the cervical spine. Soft Tissues: Unremarkable. There is a tiny less than 5 mm nodule in the left lobe of the thyroid gla nd. No follow-up is recommended. Lung Apices: Clear. IMPRESSION: 1. No acute intracranial process. 2. No acute fracture or subluxation in the cervical spine. 3. No acute facial fracture. RADIATION DOSE DELIVERED: 2,337.33mGy.cm Total DLP DATA REPOSITORY: All CT scans at this facility are submitted to the National Radiology Data Registry (NRDR) Dose Index Registry (DIR) with the [employer] (ACR). RADIATION OPTIMIZATION: All CT scans at this facility use at least one of these dose optimization te chniques: automated exposure control; mA and/or kV adjustment per patient size (includes targeted exa ms where dose is matched to clinical indication); or iterative reconstruction.
--- NOTE | 2022-04-19 03:00 | DI.CT_ITS ---
Exam(s) CT ABDOMEN PELVIS WO EXAM: CT ABDOMEN PELVIS WO CLINICAL HISTORY: nausea, abdominal pain, abdominal bloating, syncop. TECHNIQUE: Imaging Protocol: Axial computed tomography images with coronal and sagittal reformatted images were created and reviewed. FINDINGS: Lack of IV contrast does limit evaluation of the abdominal pelvic organs. ABDOMEN: Lung Bases: Normal where visualized. Liver: Normal density. No measurable mass. Gallbladder and biliary tract: No radiodense calculus or biliary ductal dilation. Pancreas: Normal density, no abnormal calcifications or inflammatory process. Spleen: Normal. Kidneys: Normal size, contour and axis.No radiodense stones or obstructive uropathy. No masses seen. Adrenal glands: No mass is seen. Lymph nodes: Within normal limits. Abdominal Aorta: The infrarenal abdominal aorta measures 3.1 x 2.9 cm. Atherosclerosis. PELVIS: Bladder:Symmetric distention, no gross wall thickening. Bowel: No obstruction or bowel wall thickening. Appendix is unremarkable. There is diverticulosis of the sigmoid colon, but no evidence of acute diverticulitis. Peritoneal cavity: No ascites, collection or mesenteric inflammatory response. No free air. Reproductive organs: The prostate gland is enlarged. Bones: Within normal limits. Soft Tissues: Within normal limits. IMPRESSION: 1. No acute abdominal or pelvic process. 2. Stable 3.1 cm infrarenal abdominal aortic aneurysm. RADIATION DOSE DELIVERED: 1,014.02mGy.cm Total DLP DATA REPOSITORY: All CT scans at this facility are submitted to the National Radiology Data Registry (NRDR) Dose Index Registry (DIR) with the [employer] (ACR). RADIATION OPTIMIZATION: All CT scans at this facility use at least one of these dose optimization te chniques: automated exposure control; mA and/or kV adjustment per patient size (includes targeted exa ms where dose is matched to clinical indication); or iterative reconstruction.
--- NOTE | 2022-04-19 03:00 | RT.EKG_ITS ---
APPROVED REPORT Exam: Resting ECG Reason for Exam: syncope Patient Location: E HR:53 bpm ECG Measurements Heart Rate 53 AXIS AR 51 P 0 QRSd 91 QRS 6 QT 573 T 148 QTc 540 Conclusion Sinus bradycardia...rate< 60 Atrial premature complexes...SV complexes w/ short R-R intvls Probable left atrial enlargement...P >50mS, <-0.10mV V1 Low voltage, precordial leads...precordial leads <1.0mV Abnormal T, consider ischemia, lateral leads...T <-0.20mV, I aVL V5 V6 Prolonged QT interval...QTc >500mS Physician: Rate 53, sinus bradycardia, notably prolonged QTC at 573, AR is short at 51 however there is no evidence of clear delta wave. No evidence of STEMI.
--- NOTE | 2022-04-19 03:16 | ED.GENADUL_ITS ---
Discharge Plan Disposition Patient Disposition: [facility] INPATIENT Condition: Improving Discharge Details Chief Complaint: Trauma Clinical Impression: Syncope, Prolonged QT interval, Fall, Contusion of right temporofrontal scalp Primary Care Provider: Camacho Barrera ED Provider: Tylor Santiago Home Meds and New Rx's Prescriptions: No Action nitroglycerin [Nitrostat] 0.4 mg tablet, sublingual 0.4 mg SL ONCE (DME) blood-glucose meter Misc See Rx Instructions .ROUTE .MEDSUPPLY Qty: 1 0RF Rx Instructions: As directed to check blood glucose. No insulin. Dispense covered brand. (DME) Blood Glucose Test Strip See Rx Instructions .ROUTE .MEDSUPPLY Qty: 100 3RF Rx Instructions: As directed to check blood glucose daily. No insulin. Dispense covered brand. (DME) lancets Misc See Rx Instructions .ROUTE .MEDSUPPLY Qty: 100 3RF Rx Instructions: As directed to check blood glucose daily. No insulin. Dispense covered brand. rivaroxaban 20 mg tablet 20 mg PO DAILY Qty: 90 3RF Rx Instructions: must administer with evening meal doxycycline monohydrate 100 mg capsule 100 mg PO BID Qty: 20 0RF metoprolol succinate 50 mg tablet extended release 24 hr 50 mg PO DAILY Label Comments: 10/09/2020 Dr Nelson [facility] cardilogy , 07/13/21 pt states he has been taking 1/2 of 50 mg tablet since mid October, 09/27/21 he is not taking 50 mg daily due to increase in HR. atorvastatin 10 mg tablet 10 mg PO DAILY Qty: 90 3RF lisinopril 20 mg tablet 20 mg PO DAILY Qty: 90 3RF brimonidine-timolol [Combigan] 10 ML drops 1 drp OU BID Medical Decision Making This is a 76-year-old male with a past medical history of A. fib, hypertension, high cholesterol, coronary artery disease, COVID presents today for evaluation of syncope. Patient states that this evening he had a few alcoholic drinks, he had some mixed nuts. Then this evening at around 2:30 AM he went up to go have a bowel movement, and while trying to pass a bowel movement he syncopized and hit his right head on the floor. EMS was called for lift assist, and the patient passed out and additional time with the fire department. He was then brought to the ER for further assessment. Patient denies any complaints. He states he has no head pain, chest pain, neck pain, back pain or abdominal pain. He does feel slightly nauseous. He also states he feels slightly dizzy when he sits upright. He currently is on a blood thinner. He denies any other complaints at this time. No other modifying factors. Exam demonstrates a small bruise over the right episcopalian. No focal neurologic deficits though. No vertical or rotatory nystagmus. No focal weakness or dysmetria. Abdomen is slightly bloated, but no tenderness whatsoever on palpation. Distal pulses are intact. Patient's heart rate does oscillate from the 40s to the 90s. We will evaluate for electrolyte abnormality, rehydrate the patient, get a CT scan of the abdomen for his bloating, CT scan of his head and neck after his fall and trauma. Will monitor closely reassess. Patient otherwise stable. He is mentating well shows no signs of altered mental status. Of note EMS tracing does show evidence of a heart rate in the low 40s that was noted on their initial assessment. 3:37 AM EKG shows a notably prolonged QT interval of 573, with a QTC of 540. No evidence of STEMI. Rate is 53 sinus bradycardia. Review of prior EKG shows no signs of prolonged QT like this before. This is certainlyconcerning. Dysr hythmia has definitely a higher likelihood now on the differential for additional cause of his syncope. 4:44 AM Laboratory work-up is returned, patient does demonstrate an elevated TSH, but free T4 is normal. BUN is minimally elevated at 23 in the setting of normal renal function. Troponin is normal. Alcohol level is only 4. Hemoglobin minimally low at 12.6, white count minimally elevated at 13.5. On reassessment after magnesium administration the patient's QT/QTc has improved. It is now in the 450s. Grossly evaluating the EKGs there does not seem to be notable difference however, he does have some certainly objective measurable difference when actually measuring out the QTC. He does have some inverted T waves in the lateral leads. He denies any chest pain, chest heaviness or chest tightness whatsoever right now. With the patient's episode of syncope, his prolonged QTC, and his other risk factors I do feel that he would be a good candidate for admission/observation rather than discharge. CT scan of the head neck and and abdomen images Are negative for acute process or bleed. Bedside echo was performed, and there appears to be good motion of the heart throughout. Trace pericardial effusion is present. Discussed the case with the hospitalist Dr. Serrano, he agrees with the assessment and plan. I have extensively reviewed the treatment plan with the patient. I have addressed all patient concerns at this time. I have also discussed the plan with the admitting physician and they agree with the current assessment and plan and have agreed to assume responsibility for the patient. All parties demonstrate verbal understanding and agreement with our assessment and plan at this time. The documentation in this chart was dictated using Number[employer] dictation software. Please excuse any dictation errors. EKG 3: 17 Rate 53, sinus bradycardia, notably prolonged QTC at 573, MS is short at 51 however there is no evidence of clear delta wave. No evidence of STEMI. EKG 4: 20 H&H by surgeon patient hospitalist for repeat today FINDINGS: Heart: mitral annular calcification. Liver: Normal. No mass. Gallbladder and bile ducts: Normal. No calcified stones. No ductal dilation. Pancreas: Normal. No ductal dilation. Spleen: Normal. No splenomegaly. Adrenal glands: Normal. No mass. Kidneys and ureters: Normal. No hydronephrosis. Stomach and bowel: Colonic diverticulosis. Appendix: No evidence of appendicitis. Intraperitoneal space: Unremarkable. No free air. No significant fluid collection. Vasculature: Dense atherosclerotic plaque is present within the abdominal aorta and branch vessels. Stable infrarenal abdominal aortic aneurysm, 3 cm. Lymph nodes: Unremarkable. No enlarged lymph nodes Urinary bladder: Unremarkable as visualized. Reproductive: The prostate gland is enlarged with calcification. Bones/joints: Degenerative changes are noted within the hips and lumbar spine. Remote left posterior 9th rib fracture. Soft tissues: Unremarkable. IMPRESSION: No acute traumatic injury is evident. Incidental findings as above. Thank you for allowing us to participate in the care of your patient. Dictated and Authenticated by: Garth Jose MD 04/19/2022 4:19 AM Eastern Time ([place] & [place]) FINDINGS: Brain: Normal. No hemorrhage. Unremarkable white matter. No mass effect. Cerebral ventricles: No ventriculomegaly. Paranasal sinuses: Mild mucosal thickening within the maxillary sinuses Mastoid air cells: Visualized mastoid air cells are well aerated. Nasal cavity: Chronic nasal bone fracture Bones/joints: Prior right frontal craniotomy defect, unchanged Soft tissues: Left forehead soft tissue swelling and small scalp hematoma IMPRESSION: 1. No intracranial hemorrhage 2. Left forehead soft tissue swelling and scalp hematoma FINDINGS: Orbital cavities: Orbits are normal. Globes are unremarkable. Bones/joints: No acute fracture. Chronic nasal bone fracture Paranasal sinuses: Normal. No air-fluid levels. Soft tissues: Unremarkable. IMPRESSION: No acute findings. FINDINGS: Bones/joints: No acute fracture. Normal alignment. Discs/Spinal canal/Neural foramina: No significant disc protrusion. No severe spinal canal stenosis. No significant neural foraminal narrowing. Lungs: Lung apices are normal. Soft tissues: Unremarkable. IMPRESSION: No acute findings. Thank you for allowing us to participate in the care of your patient. Dictated and Authenticated by: Nguyen Kulkarni MD 04/19/2022 4:29 AM Eastern Time ([place] & [place]) HPI General Date/Time Provider Initiated Documentation: 04/19/22 03:04 . HPI Narrative: This is a 76-year-old male with a past medical history of A. fib, hypertension, high cholesterol, coronary artery disease, COVID presents today for evaluation of syncope. Patient states that this evening he had a few alcoholic drinks, he had some mixed nuts. Then this evening at around 2:30 AM he went up to go have a bowel movement, and while trying to pass a bowel movement he syncopized and hit his right head on the floor. EMS was called for lift assist, and the patient passed out and additional time with the fire department. He was then brought to the ER for further assessment. Patient denies any complaints. He states he has no head pain, chest pain, neck pain, back pain or abdominal pain. He does feel slightly nauseous. He also states he feels slightly dizzy when he sits upright. He currently is on a blood thinner. He denies any other complaints at this time. No other modifying factors. Related Data Home Medications Medication Instructions Recorded Confirmed brimonidine 0.2 %-timolol 0.5 % 1 drp OU BID 04/03/18 01/08/22 eye drops (Combigan) nitroglycerin 0.4 mg sublingual 0.4 mg sublingual ONCE 08/04/18 01/08/22 tablet (Nitrostat) blood sugar diagnostic (Blood #100 ea 12/04/20 01/08/22 Glucose Test strips) blood-glucose meter #1 ea 12/04/20 01/08/22 lancets #100 ea 12/04/20 01/08/22 metoprolol succinate 50 mg 50 mg PO DAILY 09/27/21 01/08/22 tablet,extended release 24 hr atorvastatin 10 mg tablet 10 mg PO DAILY #90 tab-caps 10/08/21 01/08/22 rivaroxaban 20 mg tablet 20 mg PO DAILY #90 tabs 01/08/22 01/08/22 doxycycline monohydrate 100 mg 100 mg PO BID #20 caps 02/06/22 02/06/22 capsule lisinopril 20 mg tablet 20 mg PO DAILY #90 tabs 02/14/22 Previous Rx's Medication Instructions Recorded blood sugar diagnostic (Blood #100 ea 12/04/20 Glucose Test strips) blood-glucose meter #1 ea 12/04/20 lancets #100 ea 12/04/20 atorvastatin 10 mg tablet 10 mg PO DAILY #90 tab-caps 10/08/21 rivaroxaban 20 mg tablet 20 mg PO DAILY #90 tabs 01/08/22 doxycycline monohydrate 100 mg 100 mg PO BID #20 caps 02/06/22 capsule lisinopril 20 mg tablet 20 mg PO DAILY #90 tabs 02/14/22 Allergies Allergy/AdvReac Type Severity Reaction Status Date / Time venom-honey bee Allergy Severe HIVES Verified 04/19/22 03:27 [bee venom (honey bee)] TACHYCARDIA Penicillins Allergy Intermediate HIVES Verified 04/19/22 03:27 levetiracetam [From [facility]] AdvReac Severe leukopenia Verified 04/19/22 03:27 prednisone AdvReac Severe rectal Verified 04/19/22 03:27 bleeding and diarrhea aspirin AdvReac Intermediate Nosebleeds Verified 04/19/22 03:27 ceftriaxone AdvReac Intermediate Leukopenia Verified 04/19/22 03:27 simvastatin AdvReac Intermediate LEG PAIN Verified 04/19/22 03:27 DR MCLEOD SHRIMP Allergy Intermediate HIVES , Uncoded 04/19/22 03:27 NAUSEA General Stated Complaint: Trauma PALOMA: 2 Review of Systems All systems reviewed & are unremarkable except as noted in HPI and below PFSH All Active Problems (Updated 04/19/22 @ 04:48 by Tylor Santiago DO) Syncope (Chronic) Prolonged QT interval (Acute) Fall (Acute) Contusion of right temporofrontal scalp (Acute) Atrial tachycardia determined by electrocardiography (Acute) Internal hemorrhoids (Acute) Diabetes mellitus type II, controlled (Chronic) Blood glucose abnormal (Acute 11/03/14) Trigger middle finger of right hand (Acute 04/25/16) Abdominal aortic aneurysm (AAA) 3.0 cm to 5.5 cm in diameter in male (Chronic) Found in October 2018, needs to be rechecked every 3 years Pure hypercholesterolemia (Chronic 01/31/12) goal LDL<70 Metabolic syndrome X (Chronic 02/15/13) goal 215# 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 s/p stenting x 5 2010 or 2011 at [facility] b. presenting symptom was primarily fatigue Hypertension (Chronic) H/O: urinary stone (Chronic) Hx of colonic polyps (Chronic) Benign prostatic hypertrophy (Chronic) Atrial fibrillation (Chronic) 10/09/20 [facility] Surgical History R small trigger finger release (05/28/16) [place] steriotactic brain bx (01/27/15) [facility] bx brain abscess Family History Mother , HF at age 89. Heart disease Father , stroke HBP at age 90. Essential hypertension Brother , heart at age 82. No problems noted. Brother No problems noted. 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 Current gender identity: male What is your relationship status?: How often do you talk on the phone with friends or family?: three or more times per week How often do you get together with friends or relatives?: three or more times per week Panel score (0-1 are the most socially isolated patients): 2 What type of physical activity do you participate in: walking Frequency: 1-2 times per week Seatbelt use: always Drive intox or ride w/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 3.ENT: Atraumatic external nose and ears. Moist MM. Neck: Symmetric, trachea midline, No thyromegaly. There is no evidence of raccoon eyes, zepeda sign, CSF rhinorrhea, mastoid tenderness, cranial crepitus, hemotympanum, exophthalmos, or hyphema. Patient demonstrates intact dentition with no signs of tooth avulsion or fracture, no signs of jaw deformity, no evidence of a LeFort's fracture, with an intact palate, nose and orbital region. There is no evidence of a nasal septal hematoma. No proptosis. Jaw closes symmetrically. Airway is clear. 4.CVS: +S1/S2, No murmurs or gallops. Peripheral pulses 2+ and equal in all extremities. Brisk capillary refill in all extremities. 5.RESP: Unlabored respiratory effort. Clear to auscultation bilaterally. No wheezes rales or rhonchi 6.GI: Soft, Nontender/, No hepatosplenomegaly. No guarding or rebound. Exam demonstrates no tenderness whatsoever on palpation of the abdomen. However abdomen is minimally distended. 7.MSK: Normocephalic/Atraumatic, Extremities w/o deformity or ttp No cyanosis or clubbing, Normal movement of all extremities. Distal pulses are intact. No midline cervical thoracic or lumbar spine tenderness. 8.Skin: Warm, Dry. Small excoriation and bruise over the right episcopalian. 9.Neuro: talent management specialist II-XII grossly intact. Sensation grossly intact, no focal neurologic deficits. No dysdiadochokinesia or dysmetria. No horizontal nystagmus. No vertical nystagmus. 10.Psych: (AAO) x3. Appropriate mood and affect Course Vital Signs Vital signs: Vital Signs Temperature 36.2 C L 04/19/22 03:09 Pulse 43 L 04/19/22 03:09 Respiratory Rate 18 04/19/22 03:09 Blood Pressure 133/65 04/19/22 03:09 Pulse Oximetry 91 L 04/19/22 03:09 Temperature 36.2 C L 04/19/22 03:09 Temperature Source Skin 04/19/22 03:09 Pulse 43 L 04/19/22 03:09 Respiratory Rate 18 04/19/22 03:09 Blood Pressure 133/65 04/19/22 03:09 Blood Pressure Position Supine 04/19/22 03:09 Pulse Oximetry 91 L 04/19/22 03:09 Oxygen Delivery Method Room Air 04/19/22 03:09 Oxygen Flow Rate 0 04/19/22 03:09 Pain Level 0 04/19/22 03:09
[2022-04-19 03:24] LABS: Abs Immature Grans 0.04 10^3/uL (0.0-0.06); Absolute Basophil Count 0.04 10^3/uL (0.0-0.2); Absolute Lymphocyte Count 1.51 10^3/uL (1.2-3.4); Absolute Monocyte Count 0.88 10^3/uL (0.1-0.8); Basophils % 0.3; Eosinophils % 24.3; HCT 37.9 % (40.0-50.0); HGB 12.6 g/dL (13.5-17.5); Immature Grans % 0.3; Lymphocytes % 11.1; MCH 32.1 pg (27.0-33.0); MCHC 33.2 % (32.0-36.0); MCV 96 fL (80-95); MPV 10.7 fL (8.0-11.0); Monocytes % 6.5; Neutrophils % 57.5; Platelet Count 226 10^3/uL (130-400); RBC 3.93 10^6/uL (4.36-5.78); RDW 13.2 % (11.8-14.1); RDW-SD 46.6 fL; WBC 13.57 10^3/uL (4.4-10.8)
[2022-04-19] MEDS: Normal Saline 1,000 ML 1000 ML IV (03:25)
[2022-04-19 03:48] LABS: Diff Comment Agrees w/ Instrument; RBC Morphology Normal
[2022-04-19 03:49] LABS: Magnesium 2.2 mg/dL (1.8-2.4)
[2022-04-19 03:50] LABS: ALT 31 U/L (16-63); AST 26 U/L (15-37); Albumin 3.3 g/dL (3.4-5.0); Alkaline Phosphatase 70 U/L (46-116); Anion Gap 3.8 mmol/L (3-11); BUN 23 mg/dL (7-18); Bilirubin, Total 0.5 mg/dL (0.2-1.0); CO2 26.2 mmol/L (21.0-32.0); CREATININE 0.9 mg/dL (0.70-1.30); Calcium 8.8 mg/dL (8.5-10.1); Chloride 104 mmol/L (98-107); ETHANOL BLOOD 54.5 mg/dL (<10); Glucose 193 mg/dL (74-106); Sodium 134 mmol/L (136-145); Total Protein 6.6 g/dL (6.4-8.2); Troponin I < 50 ng/L (<or=60)
--- NOTE | 2022-04-19 04:00 | RT.EKG_ITS ---
APPROVED REPORT Exam: Resting ECG Reason for Exam: syncope Patient Location: E HR:60 bpm ECG Measurements Heart Rate 60 AXIS WY 84 P 58 QRSd 89 QRS 15 QT 455 T 138 QTc 456 Conclusion Sinus rhythm...normal P axis, V-rate 60- 99 Low voltage, precordial leads...precordial leads <1.0mV Abnormal T, consider ischemia, lateral leads...T <-0.20mV, I aVL V5 V6 Physician: Post magnesium administration. Rate 60, sinus rhythm, inverted T waves in V3 through V6. QT has normalized and is now 455. No STEMI.
[2022-04-19 04:11] LABS: FREE T4 0.85 ng/dL (0.76-1.46)
--- NOTE | 2022-04-19 04:19 | DI.VRAD_ITS ---
PROCEDURE INFORMATION: Exam: CT Abdomen And Pelvis Without Contrast Exam date and time: 04/19/2022 4:00 AM Age: 76 years old Clinical indication: Injury or trauma; Bloating and other: Syncope; Blunt; Generalized; Injury date: 04/19/22; Injury details: Fall, abd pain, bloating, syncope TECHNIQUE: Imaging protocol: Computed tomography of the abdomen and pelvis without contrast. Radiation optimization: All CT scans at this facility use at least one of these dose optimization techniques: automated exposure control; mA and/or kV adjustment per patient size (includes targeted exams where dose is matched to clinical indication); or iterative reconstruction. COMPARISON: Vascular^CTA ABD PEL (Adult) 10/16/2018 9:39 AM FINDINGS: Heart: mitral annular calcification. Liver: Normal. No mass. Gallbladder and bile ducts: Normal. No calcified stones. No ductal dilation. Pancreas: Normal. No ductal dilation. Spleen: Normal. No splenomegaly. Adrenal glands: Normal. No mass. Kidneys and ureters: Normal. No hydronephrosis. Stomach and bowel: Colonic diverticulosis. Appendix: No evidence of appendicitis. Intraperitoneal space: Unremarkable. No free air. No significant fluid collection. Vasculature: Dense atherosclerotic plaque is present within the abdominal aorta and branch vessels. Stable infrarenal abdominal aortic aneurysm, 3 cm. Lymph nodes: Unremarkable. No enlarged lymph nodes. Urinary bladder: Unremarkable as visualized. Reproductive: The prostate gland is enlarged with calcification. Bones/joints: Degenerative changes are noted within the hips and lumbar spine. Remote left posterior 9th rib fracture. Soft tissues: Unremarkable. IMPRESSION: No acute traumatic injury is evident. Incidental findings as above. Dictated and Authenticated by: Garth Jose MD. Ordering:YONY Snider MD
--- NOTE | 2022-04-19 04:30 | DI.VRAD_ITS ---
PROCEDURE INFORMATION: Exam: CT Head Without Contrast Exam date and time: 04/19/2022 3:55 AM Age: 76 years old Clinical indication: Injury or trauma; Blunt trauma (contusions or hematomas); With loss of consciousness; Not specified; Head/scalp and forehead; Injury date: 04/19/22; Injury details: Fall, hit head right side TECHNIQUE: Imaging protocol: Computed tomography of the head without contrast. Radiation optimization: All CT scans at this facility use at least one of these dose optimization techniques: automated exposure control; mA and/or kV adjustment per patient size (includes targeted exams where dose is matched to clinical indication); or iterative reconstruction. COMPARISON: CT HEAD WO 06/20/2019 2:45 PM FINDINGS: Brain: Normal. No hemorrhage. Unremarkable white matter. No mass effect. Cerebral ventricles: No ventriculomegaly. Paranasal sinuses: Mild mucosal thickening within the maxillary sinuses Mastoid air cells: Visualized mastoid air cells are well aerated. Nasal cavity: Chronic nasal bone fracture Bones/joints: Prior right frontal craniotomy defect, unchanged Soft tissues: Left forehead soft tissue swelling and small scalp hematoma IMPRESSION: 1. No intracranial hemorrhage 2. Left forehead soft tissue swelling and scalp hematoma PROCEDURE INFORMATION: Exam: CT Maxillofacial Without Contrast Exam date and time: 04/19/2022 3:55 AM Age: 76 years old Clinical indication: Injury or trauma; Blunt trauma (contusions or hematomas); With loss of consciousness; Not specified; Head/scalp and forehead; Injury date: 04/19/22; Injury details: Fall, hit head right side TECHNIQUE: Imaging protocol: Computed tomography images of the face without contrast. Radiation optimization: All CT scans at this facility use at least one of these dose optimization techniques: automated exposure control; mA and/or kV adjustment per patient size (includes targeted exams where dose is matched to clinical indication); or iterative reconstruction. COMPARISON: CT HEAD WO 06/20/2019 2:45 PM FINDINGS: Orbital cavities: Orbits are normal. Globes are unremarkable. Bones/joints: No acute fracture. Chronic nasal bone fracture Paranasal sinuses: Normal. No air-fluid levels. Soft tissues: Unremarkable. IMPRESSION: No acute findings. PROCEDURE INFORMATION: Exam: CT Cervical Spine Without Contrast Exam date and time: 04/19/2022 3:55 AM Age: 76 years old Clinical indication: Injury or trauma; Blunt trauma (contusions or hematomas); With loss of consciousness; Not specified; Head/scalp and forehead; Injury date: 04/19/22; Injury details: Fall, hit head right side TECHNIQUE: Imaging protocol: Computed tomography images of the cervical spine without contrast. Radiation optimization: All CT scans at this facility use at least one of these dose optimization techniques: automated exposure control; mA and/or kV adjustment per patient size (includes targeted exams where dose is matched to clinical indication); or iterative reconstruction. COMPARISON: CT HEAD WO 06/20/2019 2:45 PM FINDINGS: Bones/joints: No acute fracture. Normal alignment. Discs/Spinal canal/Neural foramina: No significant disc protrusion. No severe spinal canal stenosis. No significant neural foraminal narrowing. Lungs: Lung apices are normal. Soft tissues: Unremarkable. IMPRESSION: No acute findings. Dictated and Authenticated by: Nguyen Kulkarni MD. Ordering:YONY Snider MD
[2022-04-19 04:43] LABS: Source Nasal/Nares
[2022-04-19 05:35] LABS: COVID-19 PCR Negative (Negative)
[2022-04-19 07:05] LABS: Troponin I < 50 ng/L (<or=60)
--- NOTE | 2022-04-19 08:05 | W.PM.HP.N ---
Assessment and Plan Assessment and plan (1) Syncope: Status: Chronic Assessment and plan: Etiology of the syncopal episode is not clear at this time. We will repeat troponin keep him on the monitor. Orthostatic vital signs checked this morning. He will be given some IV fluids. (2) Prolonged QT interval: Status: Acute Assessment and plan: The computer diagnosed the prolonged QT interval but I do not think it is significant. He was given intravenous magnesium. He does have chronic inverted T waves in 1 and L. (3) Diabetes mellitus type II, controlled: Status: Chronic Assessment and plan: We will place him on diabetic diet and monitor his blood sugars. History of Present Illness History of Present Illness Chief Complaint: syncope Narrative: This 76-year-old male is here because of a syncopal episode. He said that he received his second booster to coronavirus yesterday. He says he has had some back discomfort for the last few days but otherwise is felt his normal self. About 11:30 PM and went to bed which is his usual time and he felt a bit queasy. He had had 2 shots of alcohol (Nikhil Bonilla) about 10-11 o'clock last night which she was typical for him. He denied could not have a bowel movement nor throw up and lay down on the floor because he wanted to be very close to the toilet about 1145. Short while later he went to get back up because he still felt nauseated and as he tried to get up he felt very weak and then had a syncopal episode. He called his because he felt very weak and EMS was called. He continued to feel very weak and he was assisted to the stretcher and brought to the hospital. He did hit the left side of his head where he fell but does not think that this caused his loss of consciousness. He feels improved now and wanted to go to the bathroom. In the emergency department he had sinus bradycardia but there is not significantly slow and his vital signs were normal. He has a history of atrial fibrillation with ablation a few years ago. His initial electrocardiogram was noted to have a prolonged QT interval. He was given intravenous magnesium in the emergency department and had lab test done and he was recommended admission for observation to see if he had any further symptoms or signs including indicate the cause for his syncope. He has had no chest pain or shortness of breath. He has been taking medicine as directed. He has had no urine or bowel symptoms. He feels fine now except he is tired. He does not use tobacco. He does not exercise a lot he says which is due to his age. He does walk in his pastures. Review of Systems Constitutional Constitutional: Denies chills, Denies fever(s), Denies frequent falls and Reports weakness Eyes Eyes: Reports system reviewed and no additional complaints, except as documented ENT Ears, Nose, Mouth, and Throat: Denies abnormal hearing, Denies vertigo, Denies dizziness and Denies neck pain Cardiovascular Cardiovascular: Denies chest pain, Denies chest pain at rest, Reports lightheadedness, Denies radiating jaw, neck or arm pain, Denies palpitations and Denies dyspnea Respiratory Respiratory: Denies cough, Denies dyspnea and Denies wheezing Gastrointestinal Gastrointestinal: Denies abdominal pain, Denies melena, Denies constipation, Denies diarrhea, Reports nausea and Denies vomiting Genitourinary Genitourinary: Denies oliguria, Denies difficulty urinating and Denies dysuria Musculoskeletal Musculoskeletal: Reports back pain and Denies neck pain Neurologic Neurologic: Denies abnormal hearing, Denies abnormal movements, Denies abnormal speech, Denies confusion, Denies vertigo, Denies dizziness, Denies frequent falls, Denies convulsions, Reports weakness and Reports other (no bowel or urine incontinence) Psychiatric Psychiatric: Denies confusion Endocrine Endocrine: Denies palpitations Allergic/Immunologic Allergic/Immunologic: Denies wheezing PFSH All Active Problems (Updated 04/19/22 @ 04:48 by Tylor Santiago DO) Syncope (Chronic) Prolonged QT interval (Acute) Fall (Acute) Contusion of right temporofrontal scalp (Acute) Atrial tachycardia determined by electrocardiography (Acute) Internal hemorrhoids (Acute) Diabetes mellitus type II, controlled (Chronic) Blood glucose abnormal (Acute 11/03/14) Trigger middle finger of right hand (Acute 04/25/16) Abdominal aortic aneurysm (AAA) 3.0 cm to 5.5 cm in diameter in male (Chronic) Found in October 2018, needs to be rechecked every 3 years Pure hypercholesterolemia (Chronic 01/31/12) goal LDL<70 Metabolic syndrome X (Chronic 02/15/13) goal 215# 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 s/p stenting x 5 2010 or 2011 at [facility] b. presenting symptom was primarily fatigue Hypertension (Chronic) H/O: urinary stone (Chronic) Hx of colonic polyps (Chronic) Benign prostatic hypertrophy (Chronic) Atrial fibrillation (Chronic) 10/09/20 [facility] [place] [place] Card[facility] Surgical History R small trigger finger release (05/28/16) [place] steriotactic brain bx (01/27/15) [facility] [place] bx brain abscess Family History Mother , HF at age 89. Heart disease Father , stroke HBP at age 90. Essential hypertension Brother , heart at age 82. No problems noted. Brother No problems noted. Social History Smoking/Tobacco Use Status: Former Tobacco Use Smoking risk assessment performed?: Yes Alcohol Intake: current Alcohol Intake frequency: 0-2 drinks per day Alcohol type: hard liquor Drug use: Never Substance use type: does not use Household members: spouse Housing: house Number of Children: 5 number of grandchildren: 9 Communication Needs: Corrective Lenses Education Level: college current occupation: Retired [employer] Current gender identity: male What is your relationship status?: How often do you talk on the phone with friends or family?: three or more times per week How often do you get together with friends or relatives?: three or more times per week Panel score (0-1 are the most socially isolated patients): 2 What type of physical activity do you participate in: walking Frequency: 1-2 times per week Seatbelt use: always Drive intox or ride w/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 driver off highway: No Working smoke detector in home: Yes Fire extinguisher in home: Yes Carbon monox detector in home: Yes Do you feel safe at home: Yes Do you feel safe in your relationship?: Yes Meds Allergies and Home Medications Allergies Allergy/AdvReac Type Severity Reaction Status Date / Time venom-honey bee Allergy Severe HIVES Verified 04/19/22 03:27 [bee venom (honey bee)] TACHYCARDIA Penicillins Allergy Intermediate HIVES Verified 04/19/22 03:27 levetiracetam [From [facility]] AdvReac Severe leukopenia Verified 04/19/22 03:27 prednisone AdvReac Severe rectal Verified 04/19/22 03:27 bleeding and diarrhea aspirin AdvReac Intermediate Nosebleeds Verified 04/19/22 03:27 ceftriaxone AdvReac Intermediate Leukopenia Verified 04/19/22 03:27 simvastatin AdvReac Intermediate LEG PAIN Verified 04/19/22 03:27 DR MCLEOD SHRIMP Allergy Intermediate HIVES , Uncoded 04/19/22 03:27 NAUSEA Home Medications Medication Instructions Recorded Confirmed Type brimonidine 0.2 %-timolol 0.5 % 1 drp OU BID 04/03/18 04/19/22 History eye drops (Combigan) nitroglycerin 0.4 mg sublingual 0.4 mg sublingual ONCE 08/04/18 04/19/22 History tablet (Nitrostat) blood sugar diagnostic (Blood #100 ea 12/04/20 04/19/22 Rx Glucose Test strips) blood-glucose meter #1 ea 12/04/20 04/19/22 Rx lancets #100 ea 12/04/20 04/19/22 Rx metoprolol succinate 50 mg 50 mg PO DAILY 09/27/21 04/19/22 History tablet,extended release 24 hr atorvastatin 10 mg tablet 10 mg PO DAILY #90 tab-caps 10/08/21 04/19/22 Rx rivaroxaban 20 mg tablet 20 mg PO DAILY #90 tabs 01/08/22 04/19/22 Rx lisinopril 20 mg tablet 20 mg PO DAILY #90 tabs 02/14/22 04/19/22 Rx Exam Const General: cooperative, healthy appearing, comfortable, no acute distress, not ill appearing and does not appear intoxicated Nutritional Appearance: overweight Orientation: alert, awake and oriented x3 HENMT Head: normal to inspection and no lacerations Ears: hearing grossly normal bilaterally Neck Neck: normal visual inspection and no lymphadenopathy Resp Auscultation: clear to auscultation bilaterally, no rales, no rhonchi and no wheezes Cardio Jugular venous pressure: no JVD Rate: bradycardic Rhythm: regular rhythm Heart Sounds: S1 normal, S2 normal, no gallops, no murmurs and no rubs GI Palpation: soft, no hepatosplenomegaly, no aortic enlargement, not firm, no masses and nontender Neuro General: patient alert, patient awake, patient oriented x3, no meningeal signs and no focal motor deficits Extrem General: normal to inspection, no calf tenderness bilaterally and no edema Results Labs Result diagrams: 04/19/22 03:18 04/19/22 03:18 Labs: Laboratory Results - last 24 hr 04/19/22 04/19/22 04/19/22 03:18 03:18 03:18 WBC 13.57 H RBC 3.93 L Hgb 12.6 L Hct 37.9 L MCV 96 H MCH 32.1 MCHC 33.2 RDW 13.2 Plt Count 226 MPV 10.7 Immature Gran % 0.3 Neutrophils % 57.5 Lymphocytes % 11.1 Monocytes % 6.5 Eosinophils % 24.3 Basophils % 0.3 Nucleated RBC % 0.0 Absolute Neutrophils 7.80 H Absolute Lymphocytes 1.51 Absolute Monocytes 0.88 H Absolute Eosinophils 3.30 H Absolute Basophils 0.04 RBC Morphology Normal Sodium 134 L Potassium 4.0 Chloride 104 Carbon Dioxide 26.2 Anion Gap 3.8 BUN 23 H Creatinine 0.9 Estimated GFR/1.73 m2 >= 60.00 Glucose 193 H Calcium 8.8 Magnesium 2.2 Total Bilirubin 0.5 AST 26 ALT 31 Alkaline Phosphatase 70 Troponin I < 50 Total Protein 6.6 Albumin 3.3 L TSH 7.60 H Free T4 0.85 Ethyl Alcohol 54.5 H COVID-19 Source SARS-CoV-2 (PCR) 04/19/22 04/19/22 04:40 06:40 WBC RBC Hgb Hct MCV MCH MCHC RDW Plt Count MPV Immature Gran % Neutrophils % Lymphocytes % Monocytes % Eosinophils % Basophils % Nucleated RBC % Absolute Neutrophils Absolute Lymphocytes Absolute Monocytes Absolute Eosinophils Absolute Basophils RBC Morphology Sodium Potassium Chloride Carbon Dioxide Anion Gap BUN Creatinine Estimated GFR/1.73 m2 Glucose Calcium Magnesium Total Bilirubin AST ALT Alkaline Phosphatase Troponin I < 50 Total Protein Albumin TSH Free T4 Ethyl Alcohol COVID-19 Source Nasal/Nares SARS-CoV-2 (PCR) Negative Last Vital Signs Temp 36.1 C L 05/20/22 06:09 Pulse 79 04/19/22 07:55 Resp 20 04/19/22 06:09 BP 155/79 H 04/19/22 07:55 Pulse Ox 98 04/19/22 06:09 PAWSS Have you Been Recently Intoxicated or Drunk Within the Last 30 days?: No Have you Ever Experienced Previous Episodes of Alcohol Withdrawal?: No Have you ever Experienced Withdrawal Seizures?: No Have you ever Experienced Delirium Tremens(DT)s?: No Have you ever undergone Alcohol Rehabilitation Treatment (i.e, inpt ot outpatient treatment programs)?: No Have you ever Experienced Blackouts?: No Have you ever Combined Alcohol with other Downers within the last 90 days?: No Have you ever Combined Alcohol with any other Substance of Abuse during the last 90 days?: No Positive Blood Alcohol level on Presentation? [PCS.BAL]: No Evidence of Increased Autonomic Activity (i.e. HR>120, tremor, sweating, agitation, nausea)?: No Result: 0
[2022-04-19 08:44] LABS: Troponin I < 50 ng/L (<or=60)
[2022-04-19] MEDS: Lactated Ringers 1,000 ML 100 ML IV (09:34)
[2022-04-19] MEDS: Normal Saline Flush 10 ML SYR IVP (09:37)
--- NOTE | 2022-04-19 11:06 | PDOC.CMIN ---
- If Service Date Differs Date of service: 04/19/22 Time of Service: 11:06 Care Management Initial Assess REASON FOR HOSPITALIZATION:: Syncope PAST MEDICAL HISTORY/PAST SURGICAL HISTORY:: Syncope (Chronic). Prolonged QT interval (Acute). Fall (Acute). Contusion of right temporofrontal scalp (Acute). Atrial tachycardia determined by electrocardiography (Acute). Internal hemorrhoids (Acute). Diabetes mellitus type II, controlled (Chronic). Blood glucose abnormal (Acute 11/03/14). Trigger middle finger of right hand (Acute 04/25/16). Abdominal aortic aneurysm (AAA) 3.0 cm to 5.5 cm in diameter in male (Chronic). Found in October 2018, needs to be rechecked every 3 years. Pure hypercholesterolemia (Chronic 01/31/12). goal LDL<70. Metabolic syndrome X (Chronic 02/15/13). goal 215#. 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 h/o Strep Milleri (mouth jones); left hemiparesis. Hemiparesis, left (Chronic 02/07/15). [place] L leg tires. Coronary atherosclerosis of [place] coronary vessel (Chronic 05/01/11). stents 2010. Atherosclerosis of [place] coronary artery of [place] heart without angina pectoris (Chronic 05/01/11). stents 2010. 07/27/18 Cardiac Cath-Non obstructive CAD, decreased Cardiac output. Coronary disease (Chronic). a. s/p stenting x 5 2010 or 2011 at [facility]. b. presenting symptom was primarily fatigue. Hypertension (Chronic). H/O: urinary stone (Chronic). Hx of colonic polyps (Chronic). Benign prostatic hypertrophy (Chronic). Atrial fibrillation (Chronic). 10/09/20 [facility] [place] [facility]. Surgical History . R small trigger finger release (05/28/16). [place]. steriotactic brain bx (01/27/15). [facility] [place] bx brain abscess
[2022-04-19] MEDS: Metoprolol CR 50 MG TABCR PO (11:16)
--- NOTE | 2022-04-19 14:49 | W.PM.DS.N ---
Date of service: 04/19/22 Time of Service: 13:50 DS: Diagnosis Discharge Diagnosis (1) Syncope: Status: Chronic (2) Prolonged QT interval: Status: Acute (3) Diabetes mellitus type II, controlled: Status: Chronic Discharge Plan Disposition Patient Disposition: HOME Condition: Improving Discharge Details Reason For Visit: Syncope Admit Date/Time: 04/19/22 04:42 Admit Provider: Micheal Wong Attending Provider: Micheal Wong Primary Care Provider: Camacho Barrera [facility] Course Hospital Course: This 76-year-old male came to the ED after a syncopal episode.? He said that he received his second booster to coronavirus yesterday.? He says he has had some back discomfort for the last few days but otherwise felt his normal self.?He had had 2 shots of Nikhil Bonilla about 10-11 o'clock last night which is typical for him.? He began to feel nauseated and went to the bathroom. He said he sat on the stool and then felt like he was going to vomit so he went to kneel down, he became very weak and then had a syncopal episode. He did hit the left side of his head, it has a small abrasion - his CT scan of the head was negative.? In the ED his cardiac rhythm was sinus bradycardia and other vital signs normal. He has a history of atrial fibrillation with ablation a few years ago.? His initial electrocardiogram was noted to have a prolonged QT interval. He received magnesium IV in the ED. He has had no further symptoms.?He has had no chest pain or shortness of breath.? He has been taking medicine as directed.? He has had no urine or bowel symptoms.? He feels fine now except he is tired.? He does not use tobacco.? He does not exercise a lot he says which is due to his age.? He does walk in his pastures. No dizziness, no chest pain and no difficulty breathing. Troponins x 3 are negative. We will order an out patient stress test; start atorvastatin 10 mg daily and Rivaroxaban 20 mg daily. Follow up with cardiology and PCP. Reviewed with Dr Harrison Home Meds and New Rx's Prescriptions: Continued nitroglycerin [Nitrostat] 0.4 mg tablet, sublingual 0.4 mg SL ONCE (DME) blood-glucose meter Misc See Rx Instructions .ROUTE .MEDSUPPLY Qty: 1 0RF Rx Instructions: As directed to check blood glucose. No insulin. Dispense covered brand. (DME) Blood Glucose Test Strip See Rx Instructions .ROUTE .MEDSUPPLY Qty: 100 3RF Rx Instructions: As directed to check blood glucose daily. No insulin. Dispense covered brand. (DME) lancets Misc See Rx Instructions .ROUTE .MEDSUPPLY Qty: 100 3RF Rx Instructions: As directed to check blood glucose daily. No insulin. Dispense covered brand. rivaroxaban 20 mg tablet 20 mg PO DAILY Qty: 90 3RF Rx Instructions: must administer with evening meal metoprolol succinate 50 mg tablet extended release 24 hr 50 mg PO DAILY Label Comments: 10/09/2020 Dr Nelson [facility] cardilogy RH, 07/13/21 pt states he has been taking 1/2 of 50 mg tablet since mid October, 09/27/21 he is not taking 50 mg daily due to increase in HR. atorvastatin 10 mg tablet 10 mg PO DAILY Qty: 90 3RF lisinopril 20 mg tablet 20 mg PO DAILY Qty: 90 3RF brimonidine-timolol [Combigan] 10 ML drops 1 drp OU BID Discharge Instructions Instructions: Syncope (DC) Additional Instructions: Continue at home medications Stand Alone Forms: Nursing Discharge Form Referrals: Nguyen Thomas MD [ [facility] STAFF PHYSICIAN] - (Follow up s/p syncope Dr Clemens Office will call you for an appointment) Camacho Barrera DO [Primary Care Provider] - 04/26/22 9:00 am () Activity:: Activity as Tolerated Equipment/Supplies:: No Equipment Needed Diet:: Low Sodium Discharge Orders Discharge Orders: Discharge Order (Routine); Ordered 04/19/22 Ordered By: Vonda Wood Discharge Data Discharge Date/Time-TO BE ENTERED AT DEPARTURE: 04/19/22 15:41 DS: Summary Time Spent with Patient providing and/or coordinating discharge services: Less than 30 minutes Status at Discharge Functional status at discharge: independent ambulation Overall status at discharge: patient is back to baseline Mental Status: mental status grossly normal Speech and Movement: speech and movement normal Mood: congruent mood Affect: normal affect Exam Narrative Exam Narrative: General: cooperative, healthy appearing, comfortable, no acute distress, not ill appearing Nutritional Appearance: overweight Orientation: alert, awake and oriented x3 [facility] Head: abrasion to right side of forehead Ears: hearing grossly normal bilaterally Neck Neck: normal visual inspection and no lymphadenopathy Resp Auscultation: clear to auscultation bilaterally, no rales, no rhonchi and no wheezes Cardio Jugular venous pressure: no JVD Rate: bradycardic Rhythm: regular rhythm Heart Sounds: S1 normal, S2 normal, no gallops, no murmurs and no rubs GI Palpation: soft, no hepatosplenomegaly, no aortic enlargement, not firm, no masses and nontender Neuro General: patient alert, patient awake, patient oriented x3, no meningeal signs and no focal motor deficits Extrem General: normal to inspection, no calf tenderness bilaterally and no edema Psych Mental Status: mental status grossly normal Speech and Movement: speech and movement normal Mood: congruent mood Affect: normal affect DS: Data Vitals/I&O Vitals and I&O: Vital Signs Temperature 36.7 C 04/19/22 10:58 Temperature Source Tympanic 04/19/22 10:58 Pulse 61 04/19/22 10:58 Pulse Rhythm Regular 04/19/22 10:52 Pulse 63 04/19/22 04:31 Respiratory Rate 16 04/19/22 10:58 Respiratory Effort 04/19/22 10:52 Respiratory Depth Normal 04/19/22 10:52 Respiratory Pattern Normal 04/19/22 10:52 Blood Pressure 152/71 H 04/19/22 10:58 Blood Pressure Mean 86 04/19/22 04:31 Blood Pressure Position Supine 04/19/22 03:09 Pulse Oximetry 99 04/19/22 10:58 Oxygen Delivery Method Room Air 04/19/22 10:58 Oxygen Flow Rate 0 04/19/22 10:58 Pain Level 0 04/19/22 10:58 Comment 04/19/22 06:09 Intake & Output 04/18/22 04/19/22 04/19/22 23:59 11:59 23:59 Intake Total 1000 / 1240 240 / 1240 Balance 1000 / 1240 240 / 1240 Weight 99.79 kg Intake: IV 1000 / 1000 Oral 240 / 240 Other: Urine Appearance Clear Data Completed and Pending Labs on day of discharge: Labs from last 24 hours 04/19/22 04/19/22 04/19/22 08:20 06:40 04:40 WBC RBC Hgb Hct MCV MCH MCHC RDW Plt Count MPV Immature Gran % Neutrophils % Lymphocytes % Monocytes % Eosinophils % Basophils % Nucleated RBC % Absolute Neutrophils Absolute Lymphocytes Absolute Monocytes Absolute Eosinophils Absolute Basophils RBC Morphology Sodium Potassium Chloride Carbon Dioxide Anion Gap BUN Creatinine Estimated GFR/1.73 m2 Glucose Calcium Magnesium Total Bilirubin AST ALT Alkaline Phosphatase Troponin I < 50 < 50 Total Protein Albumin TSH Free T4 Ethyl Alcohol COVID-19 Source Nasal/Nares SARS-CoV-2 (PCR) Negative 04/19/22 04/19/22 04/19/22 03:18 03:18 03:18 WBC 13.57 H RBC 3.93 L Hgb 12.6 L Hct 37.9 L MCV 96 H MCH 32.1 MCHC 33.2 RDW 13.2 Plt Count 226 MPV 10.7 Immature Gran % 0.3 Neutrophils % 57.5 Lymphocytes % 11.1 Monocytes % 6.5 Eosinophils % 24.3 Basophils % 0.3 Nucleated RBC % 0.0 Absolute Neutrophils 7.80 H Absolute Lymphocytes 1.51 Absolute Monocytes 0.88 H Absolute Eosinophils 3.30 H Absolute Basophils 0.04 RBC Morphology Normal Sodium 134 L Potassium 4.0 Chloride 104 Carbon Dioxide 26.2 Anion Gap 3.8 BUN 23 H Creatinine 0.9 Estimated GFR/1.73 m2 >= 60.00 Glucose 193 H Calcium 8.8 Magnesium 2.2 Total Bilirubin 0.5 AST 26 ALT 31 Alkaline Phosphatase 70 Troponin I < 50 Total Protein 6.6 Albumin 3.3 L TSH 7.60 H Free T4 0.85 Ethyl Alcohol 54.5 H COVID-19 Source SARS-CoV-2 (PCR) PFSH All Active Problems Syncope (Chronic) Prolonged QT interval (Acute) Fall (Acute) Contusion of right temporofrontal scalp (Acute) Atrial tachycardia determined by electrocardiography (Acute) Internal hemorrhoids (Acute) Diabetes mellitus type II, controlled (Chronic) Blood glucose abnormal (Acute 11/03/14) Trigger middle finger of right hand (Acute 04/25/16) Abdominal aortic aneurysm (AAA) 3.0 cm to 5.5 cm in diameter in male (Chronic) Found in October 2018, needs to be rechecked every 3 years Pure hypercholesterolemia (Chronic 01/31/12) goal LDL<70 Metabolic syndrome X (Chronic 02/15/13) goal 215# 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 s/p stenting x 5 2010 or 2011 at [facility] b. presenting symptom was primarily fatigue Hypertension (Chronic) H/O: urinary stone (Chronic) Hx of colonic polyps (Chronic) Benign prostatic hypertrophy (Chronic) Atrial fibrillation (Chronic) 10/09/20 [facility] Card[facility] Surgical History R small trigger finger release (05/28/16) [place] steriotactic brain bx (01/27/15) [facility] bx brain abscess Family History Mother , HF at age 89. Heart disease Father , stroke HBP at age 90. Essential hypertension Brother , heart at age 82. No problems noted. Brother No problems noted. 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 Current gender identity: male What is your relationship status?: How often do you talk on the phone with friends or family?: three or more times per week How often do you get together with friends or relatives?: three or more times per week Panel score (0-1 are the most socially isolated patients): 2 What type of physical activity do you participate in: walking Frequency: 1-2 times per week Seatbelt use: always Drive intox or ride w/intox wagon driver salesperson: No Working smoke detector in home: Yes Fire extinguisher in home: Yes Carbon monox detector in home: Yes Do you feel safe at home: Yes Do you feel safe in your relationship?: Yes
--- NOTE | 2022-04-19 21:42 | W.PM.DS.N ---
Date of service: 04/19/22 DS: Diagnosis Discharge Diagnosis (1) Syncope: Status: Chronic (2) Prolonged QT interval: Status: Acute (3) Diabetes mellitus type II, controlled: Status: Chronic Discharge Plan Disposition Patient Disposition: HOME Condition: Improving Discharge Details Reason For Visit: Syncope Admit Date/Time: 04/19/22 04:42 Admit Provider: Micheal Wong Attending Provider: Micheal Wong Primary Care Provider: Camacho Barrera [facility] Course Hospital Course: This 76-year-old male came to the ED after a syncopal episode.? He said that he received his second booster to coronavirus yesterday.? He says he has had some back discomfort for the last few days but otherwise felt his normal self.?He had had 2 shots of Nikhil Bonilla about 10-11 o'clock last night which is typical for him.? He began to feel nauseated and went to the bathroom. He said he sat on the stool and then felt like he was going to vomit so he went to kneel down, he became very weak and then had a syncopal episode. He did hit the left side of his head, it has a small abrasion - his CT scan of the head was negative.? In the ED his cardiac rhythm was sinus bradycardia and other vital signs normal. He has a history of atrial fibrillation with ablation a few years ago.? His initial electrocardiogram was noted to have a prolonged QT interval. He received magnesium IV in the ED. He has had no further symptoms.?He has had no chest pain or shortness of breath.? He has been taking medicine as directed.? He has had no urine or bowel symptoms.? He feels fine now except he is tired.? He does not use tobacco.? He does not exercise a lot he says which is due to his age.? He does walk in his pastures. No dizziness, no chest pain and no difficulty breathing. Troponins x 3 are negative. We will order an out patient stress test; start atorvastatin 10 mg daily and Rivaroxaban 20 mg daily. Follow up with cardiology and PCP. Reviewed with Dr Harrison Home Meds and New Rx's Prescriptions: Continued nitroglycerin [Nitrostat] 0.4 mg tablet, sublingual 0.4 mg SL ONCE (DME) blood-glucose meter Misc See Rx Instructions .ROUTE .MEDSUPPLY Qty: 1 0RF Rx Instructions: As directed to check blood glucose. No insulin. Dispense covered brand. (DME) Blood Glucose Test Strip See Rx Instructions .ROUTE .MEDSUPPLY Qty: 100 3RF Rx Instructions: As directed to check blood glucose daily. No insulin. Dispense covered brand. (DME) lancets Misc See Rx Instructions .ROUTE .MEDSUPPLY Qty: 100 3RF Rx Instructions: As directed to check blood glucose daily. No insulin. Dispense covered brand. rivaroxaban 20 mg tablet 20 mg PO DAILY Qty: 90 3RF Rx Instructions: must administer with evening meal metoprolol succinate 50 mg tablet extended release 24 hr 50 mg PO DAILY Label Comments: 10/09/2020 Dr Nelson [facility] cardilogy , 07/13/21 pt states he has been taking 1/2 of 50 mg tablet since mid October, 09/27/21 he is not taking 50 mg daily due to increase in HR. atorvastatin 10 mg tablet 10 mg PO DAILY Qty: 90 3RF lisinopril 20 mg tablet 20 mg PO DAILY Qty: 90 3RF brimonidine-timolol [Combigan] 10 ML drops 1 drp OU BID Discharge Instructions Instructions: Syncope (DC) Additional Instructions: Continue at home medications Stand Alone Forms: Nursing Discharge Form Referrals: Nguyen Thomas MD [ [facility] STAFF PHYSICIAN] - (Follow up s/p syncope Dr Clemens Office will call you for an appointment) Camacho Barrera DO [Primary Care Provider] - 04/26/22 9:00 am () Activity:: Activity as Tolerated Equipment/Supplies:: No Equipment Needed Diet:: Low Sodium Discharge Orders Discharge Orders: Discharge Order (Routine); Ordered 04/19/22 Ordered By: Vonda Wood Other Ambulatory Orders: NM MPI rest & stress grp (Routine) Location: None Selected Ordered By: Vonda Wood Discharge Data Discharge Date/Time-TO BE ENTERED AT DEPARTURE: 04/19/22 15:41 DS: Summary Time Spent with Patient providing and/or coordinating discharge services: Less than 30 minutes Status at Discharge Functional status at discharge: independent ambulation Overall status at discharge: patient is back to baseline Mental Status: mental status grossly normal Speech and Movement: speech and movement normal Mood: congruent mood Affect: normal affect Exam Psych Mental Status: mental status grossly normal Speech and Movement: speech and movement normal Mood: congruent mood Affect: normal affect DS: Data Vitals/I&O Vitals and I&O: Vital Signs Temperature 36.7 C 04/19/22 10:58 Temperature Source Tympanic 04/19/22 10:58 Pulse 78 04/19/22 15:04 Pulse Rhythm Regular 04/19/22 10:52 Pulse 63 04/19/22 04:31 Respiratory Rate 16 04/19/22 10:58 Respiratory Effort 04/19/22 10:52 Respiratory Depth Normal 04/19/22 10:52 Respiratory Pattern Normal 04/19/22 10:52 Blood Pressure 152/71 H 04/19/22 10:58 Blood Pressure Mean 86 04/19/22 04:31 Blood Pressure Position Supine 04/19/22 03:09 Pulse Oximetry 99 04/19/22 10:58 Oxygen Delivery Method Room Air 04/19/22 10:58 Oxygen Flow Rate 0 04/19/22 10:58 Pain Level 0 04/19/22 10:58 Comment 04/19/22 06:09 Intake & Output 04/18/22 04/19/22 04/19/22 23:59 11:59 23:59 Intake Total 1000 / 1240 240 / 1240 Balance 1000 / 1240 240 / 1240 Weight 99.79 kg Intake: IV 1000 / 1000 Oral 240 / 240 Other: Urine Appearance Clear Data Completed and Pending Labs on day of discharge: Labs from last 24 hours 04/19/22 04/19/22 04/19/22 08:20 06:40 04:40 WBC RBC Hgb Hct MCV MCH MCHC RDW Plt Count MPV Immature Gran % Neutrophils % Lymphocytes % Monocytes % Eosinophils % Basophils % Nucleated RBC % Absolute Neutrophils Absolute Lymphocytes Absolute Monocytes Absolute Eosinophils Absolute Basophils RBC Morphology Sodium Potassium Chloride Carbon Dioxide Anion Gap BUN Creatinine Estimated GFR/1.73 m2 Glucose Calcium Magnesium Total Bilirubin AST ALT Alkaline Phosphatase Troponin I < 50 < 50 Total Protein Albumin TSH Free T4 Ethyl Alcohol COVID-19 Source Nasal/Nares SARS-CoV-2 (PCR) Negative 04/19/22 04/19/22 04/19/22 03:18 03:18 03:18 WBC 13.57 H RBC 3.93 L Hgb 12.6 L Hct 37.9 L MCV 96 H MCH 32.1 MCHC 33.2 RDW 13.2 Plt Count 226 MPV 10.7 Immature Gran % 0.3 Neutrophils % 57.5 Lymphocytes % 11.1 Monocytes % 6.5 Eosinophils % 24.3 Basophils % 0.3 Nucleated RBC % 0.0 Absolute Neutrophils 7.80 H Absolute Lymphocytes 1.51 Absolute Monocytes 0.88 H Absolute Eosinophils 3.30 H Absolute Basophils 0.04 RBC Morphology Normal Sodium 134 L Potassium 4.0 Chloride 104 Carbon Dioxide 26.2 Anion Gap 3.8 BUN 23 H Creatinine 0.9 Estimated GFR/1.73 m2 >= 60.00 Glucose 193 H Calcium 8.8 Magnesium 2.2 Total Bilirubin 0.5 AST 26 ALT 31 Alkaline Phosphatase 70 Troponin I < 50 Total Protein 6.6 Albumin 3.3 L TSH 7.60 H Free T4 0.85 Ethyl Alcohol 54.5 H COVID-19 Source SARS-CoV-2 (PCR) PFSH All Active Problems Syncope (Chronic) Prolonged QT interval (Acute) Fall (Acute) Contusion of right temporofrontal scalp (Acute) Atrial tachycardia determined by electrocardiography (Acute) Internal hemorrhoids (Acute) Diabetes mellitus type II, controlled (Chronic) Blood glucose abnormal (Acute 11/03/14) Trigger middle finger of right hand (Acute 04/25/16) Abdominal aortic aneurysm (AAA) 3.0 cm to 5.5 cm in diameter in male (Chronic) Found in October 2018, needs to be rechecked every 3 years Pure hypercholesterolemia (Chronic 01/31/12) goal LDL<70 Metabolic syndrome X (Chronic 02/15/13) goal 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 s/p stenting x 5 2010 or 2011 at [facility] b. presenting symptom was primarily fatigue Hypertension (Chronic) H/O: urinary stone (Chronic) Hx of colonic polyps (Chronic) Benign prostatic hypertrophy (Chronic) Atrial fibrillation (Chronic) 10/09/20 [facility] [place] [facility] Surgical History R small trigger finger release (05/28/16) [place] steriotactic brain bx (01/27/15) [facility] bx brain abscess Family History Mother , HF at age 89. Heart disease Father , stroke HBP at age 90. Essential hypertension Brother , heart at age 82. No problems noted. Brother No problems noted. 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 Current gender identity: male What is your relationship status?: How often do you talk on the phone with friends or family?: three or more times per week How often do you get together with friends or relatives?: three or more times per week Panel score (0-1 are the most socially isolated patients): 2 What type of physical activity do you participate in: walking Frequency: 1-2 times per week Seatbelt use: always Drive intox or ride w/intox automobile drivers: No Working smoke detector in home: Yes Fire extinguisher in home: Yes Carbon monox detector in home: Yes Do you feel safe at home: Yes Do you feel safe in your relationship?: Yes
== END 2022-04-19 15:41 | disposition home or self-care (01) ==
LOC: ER 05:40 → MS 06:08
PROVIDERS: Admitting Provider Family Medicine; Emergency Provider Student in an Organized Health Care Education/Training Program; PCP Family Medicine; Visit Provider Family Medicine
DX: R55 Syncope and collapse (principal); E11.9 Type 2 diabetes mellitus without complications; R94.31 Abnormal electrocardiogram [ECG] [EKG]; R11.0 Nausea; R10.9 Unspecified abdominal pain; R14.0 Abdominal distension (gaseous); I71.4 Abdominal aortic aneurysm, without rupture; I70.0 Atherosclerosis of aorta; S00.03XA Contusion of scalp, initial encounter; W18.39XA Other fall on same level, initial encounter; I10 Essential (primary) hypertension; E78.00 Pure hypercholesterolemia, unspecified; I25.10 Atherosclerotic heart disease of native coronary artery without angina pectoris; Z95.5 Presence of coronary angioplasty implant and graft; N40.0 Benign prostatic hyperplasia without lower urinary tract symptoms; Z87.891 Personal history of nicotine dependence; Z20.822 Contact with and (suspected) exposure to COVID-19; Z79.899 Other long term (current) drug therapy
CPT/HCPCS: 36415; 80053; 87635; 93005; 96360; 99285; 70450; 70486; 72125; 74176; 80320; 83735; 84439; 84443; 84484; 85025; 93010; 99235; G0378

== ENCOUNTER 2022-04-20 12:13 | Emergency (ER) | payer MEDICARE, SELFPAY ==
[2022-04-20 12:34] VITALS: BP 172/89; PULSE 64; RESP 16; TEMP 36.3; O2SAT 98
--- NOTE | 2022-04-20 13:00 | DI.RAD_ITS ---
Exam(s) XR LUMBAR SPINE COMPLETE EXAM: XR LUMBAR SPINE COMPLETE CLINICAL HISTORY: Left Lower back pain. TECHNIQUE: 2D digital imaging was performed of the lumbar spine. Five images were obtained. AP, la teral, right oblique, left oblique and L5-S1 spot views were obtained. COMPARISON: MR MR LUMBAR SPINE WO from 12/05/2020 FINDINGS: BONES: No fracture or destructive lesion. Endplate osteophytes are seen at several levels of the lumb ar spine. Degenerative changes of the facets are seen at L3-4, L4-5 and L5-S1. DISKS: There is disc space narrowing at L5-S1. ALIGNMENT: Lumbar spinal alignment is within normal limits. No spondylolysis or spondylolisthesis. SOFT TISSUE: Atherosclerosis is present. IMPRESSION: Degenerative changes in the lumbar spine. No acute fracture or subluxation. DATA REPOSITORY: RADIATION DOSE DELIVERED:
--- NOTE | 2022-04-20 13:01 | W.ED.GENAD ---
Discharge Plan Disposition Patient Disposition: HOME Condition: Stable Discharge Details Clinical Impression: Degenerative disc disease, lumbar, UTI (urinary tract infection) Primary Care Provider: Camacho Barrera ED Provider: Jacquie Mas Home Meds and New Rx's Prescriptions: Continued nitroglycerin [Nitrostat] 0.4 mg tablet, sublingual 0.4 mg SL ONCE (DME) blood-glucose meter Misc See Rx Instructions .ROUTE .MEDSUPPLY Qty: 1 0RF Rx Instructions: As directed to check blood glucose. No insulin. Dispense covered brand. (DME) Blood Glucose Test Strip See Rx Instructions .ROUTE .MEDSUPPLY Qty: 100 3RF Rx Instructions: As directed to check blood glucose daily. No insulin. Dispense covered brand. (DME) lancets Misc See Rx Instructions .ROUTE .MEDSUPPLY Qty: 100 3RF Rx Instructions: As directed to check blood glucose daily. No insulin. Dispense covered brand. rivaroxaban 20 mg tablet 20 mg PO DAILY Qty: 90 3RF Rx Instructions: must administer with evening meal metoprolol succinate 50 mg tablet extended release 24 hr 50 mg PO DAILY Label Comments: 10/09/2020 Dr Nelson [facility] [place] cardilogy RH, 07/13/21 pt states he has been taking 1/2 of 50 mg tablet since october, 09/27/21 he is not taking 50 mg daily due to increase in HR. RH atorvastatin 10 mg tablet 10 mg PO DAILY Qty: 90 3RF lisinopril 20 mg tablet 20 mg PO DAILY Qty: 90 3RF brimonidine-timolol [Combigan] 10 ML drops 1 drp OU BID Discharge Instructions Instructions: Urinary Tract Infection in Men (ED), Back Pain (ED) Additional Instructions: You are given a one-time dose of antibiotics. There is no need at this time to give you any additional dosages. X-rays show arthritis in your lower lumbar spine. No acute fracture. Please take Tylenol or Ibuprofen with food every 4-6 hours as needed for pain and swelling. Follow up with primary care provider in 3-5 days. Return to ED sooner if any worsening or concerns. Increase oral fluids. Referrals: Camacho Barrera DO [Primary Care Provider] - 1 week Medical Decision Making 76-year-old male presents to the ER with chief complaint of left lower lumbar pain which he noticed this morning. Patient was recently seen and admitted for syncopal episode and a fall discharged yesterday. He reports he got up this morning went to go feed the chickens when he noticed some lower back pain. He denies any radiation into the legs any loss of bowel or bladder control or numbness. He denies any recurrent falls or problems urinating. Denies any dysuria or blood in his urine. No other associated symptoms. Denies any chest pain breath or diaphoresis. I did offer some Tylenol or ibuprofen or lidocaine patch which patient refused at this time. X-ray results show degenerative changes no acute fracture no change from previous imaging. Discussed results with patient and family verbalized understanding. Patient was given Tylenol and a lidocaine patch here in the department. He was ambulatory in department without assistance. Discussed home care and strict return instructions. This text was generated using [employer] system, please disregard any oddities of phrase or misspellings. Imaging Data Radiologic Study: Imaging: X-Ray Radiologist's impression: FINDINGS: Bones/joints: 5 [id number] lumbar vertebrae. Lumbar lordosis and sacrococcygeal kyphosis are preserved. Minimal anterolisthesis at L4-L5. Moderate disc space narrowing at L5-S1, with endplate sclerosis and osteophyte formation. Facet arthropathy at L4-L5 and L5-S1. Mild endplate osteophytes in the lower thoracic spine. No acute fracture. No focal osseous lesions. Degenerative changes of the hip joints bilaterally. Soft tissues: Unremarkable. Gastrointestinal tract: Non obstructive bowel gas pattern. Vasculature: Extensive arterial calcification of the abdominal aorta and iliac arteries. IMPRESSION: Degenerative changes of the lumbar spine as discussed. This corresponds to the CT scan of the abdomen and pelvis performed 04/19/2022 and is unchanged since previous x-rays of 10/01/2018. HPI General Mode of arrival: ambulatory. Date/Time Provider Initiated Documentation: 04/20/22 12:17. Limitations to Documentation: no limitations. Information obtained by: patient, RN notes reviewed and old records reviewed. HPI Narrative: 76-year-old male presents to the ER with chief complaint of left lower lumbar pain which he noticed this morning. Patient was recently seen and admitted for syncopal episode and a fall discharged yesterday. He reports he got up this morning went to go feed the chickens when he noticed some lower back pain. He denies any radiation into the legs any loss of bowel or bladder control or numbness. He denies any recurrent falls or problems urinating. Denies any dysuria or blood in his urine. No other associated symptoms. Denies any chest pain breath or diaphoresis. I did offer some Tylenol or ibuprofen or lidocaine patch which patient refused at this time. Related Data Home Medications Medication Instructions Recorded Confirmed brimonidine 0.2 %-timolol 0.5 % 1 drp OU BID 04/03/18 04/20/22 eye drops (Combigan) nitroglycerin 0.4 mg sublingual 0.4 mg sublingual ONCE 08/04/18 04/20/22 tablet (Nitrostat) blood sugar diagnostic (Blood #100 ea 12/04/20 04/20/22 Glucose Test strips) blood-glucose meter #1 ea 12/04/20 04/20/22 lancets #100 ea 12/04/20 04/20/22 metoprolol succinate 50 mg 50 mg PO DAILY 09/27/21 04/20/22 tablet,extended release 24 hr atorvastatin 10 mg tablet 10 mg PO DAILY #90 tab-caps 10/08/21 04/20/22 rivaroxaban 20 mg tablet 20 mg PO DAILY #90 tabs 01/08/22 04/20/22 lisinopril 20 mg tablet 20 mg PO DAILY #90 tabs 02/14/22 04/20/22 Previous Rx's Medication Instructions Recorded blood sugar diagnostic (Blood #100 ea 12/04/20 Glucose Test strips) blood-glucose meter #1 ea 12/04/20 lancets #100 ea 12/04/20 atorvastatin 10 mg tablet 10 mg PO DAILY #90 tab-caps 10/08/21 rivaroxaban 20 mg tablet 20 mg PO DAILY #90 tabs 01/08/22 lisinopril 20 mg tablet 20 mg PO DAILY #90 tabs 02/14/22 Allergies Allergy/AdvReac Type Severity Reaction Status Date / Time venom-honey bee Allergy Severe HIVES Verified 04/20/22 12:38 [bee venom (honey bee)] TACHYCARDIA Penicillins Allergy Intermediate HIVES Verified 04/20/22 12:38 levetiracetam [From [facility] [place]] AdvReac Severe leukopenia Verified 04/20/22 12:38 prednisone AdvReac Severe rectal Verified 04/20/22 12:38 bleeding and diarrhea aspirin AdvReac Intermediate Nosebleeds Verified 04/20/22 12:38 ceftriaxone AdvReac Intermediate Leukopenia Verified 04/20/22 12:38 simvastatin AdvReac Intermediate LEG PAIN Verified 04/20/22 12:38 DR MCLEOD SHRIMP Allergy Intermediate HIVES , Uncoded 04/20/22 12:38 NAUSEA General Stated Complaint: Nk/Back Pain PALOMA: 3 Review of Systems All systems reviewed & are unremarkable except as noted in HPI and below Musculoskeletal Musculoskeletal: Reports back pain PFSH All Active Problems (Updated 04/20/22 @ 15:01 by Jacquie Mas) Degenerative disc disease, lumbar (Acute) UTI (urinary tract infection) (Acute) Syncope (Chronic) Prolonged QT interval (Acute) Atrial tachycardia determined by electrocardiography (Acute) Internal hemorrhoids (Acute) Diabetes mellitus type II, controlled (Chronic) Blood glucose abnormal (Acute 11/03/14) Trigger middle finger of right hand (Acute 04/25/16) Abdominal aortic aneurysm (AAA) 3.0 cm to 5.5 cm in diameter in male (Chronic) Found in October 2018, needs to be rechecked every 3 years Pure hypercholesterolemia (Chronic 01/31/12) goal LDL<70 Metabolic syndrome X (Chronic 02/15/13) goal 215# 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 s/p stenting x 5 2010 or 2011 at [facility] b. presenting symptom was primarily fatigue Hypertension (Chronic) H/O: urinary stone (Chronic) Hx of colonic polyps (Chronic) Benign prostatic hypertrophy (Chronic) Atrial fibrillation (Chronic) [place]09[place]20 [facility] [place] R small trigger finger release (05/28/16) [place] steriotactic brain bx (01/27/15) [facility] [place] brain abscess Family History Mother , HF at age 89. Heart disease Father , stroke HBP at age 90. Essential hypertension Brother , heart at age 82. No problems noted. Brother No problems noted. 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 Current gender identity: male What is your relationship status?: How often do you talk on the phone with friends or family?: three or more times per week How often do you get together with friends or relatives?: three or more times per week Panel score (0-1 are the most socially isolated patients): 2 What type of physical activity do you participate in: walking Frequency: 1-2 times per week Seatbelt use: always Drive intox or ride w/intox emt driver: No Working smoke detector in home: Yes Fire extinguisher in home: Yes Carbon monox detector in home: Yes Do you feel safe at home: Yes Do you feel safe in your relationship?: Yes Exam Narrative Exam Narrative: Constitutional: Alert and oriented x3. Appears stated age. Normal body habitus. Head: Normocephalic, no trauma. Eyes: Pupils PERRL, Red reflex noted, EOM's intact. Eyelids symmetrical without lesions, discharge, or swelling. ENT: Bilateral TM's WNL, External ear normal to inspection, no mastoid TTP, swelling, or erythema, Nasal turbinates WNL, no nasal discharge. Normal dentition, Posterior pharynx WNL, no exudate. Chest: RRR, Normal S1, S2, distal pulses intact. Resp: Lungs clear to auscultation bilaterally, no wheezes, rales, or rhonchi. Abdomen: Soft, non-distended, Normoactive bowel sounds all 4 quads. Musculoskeletal: Normal gait, 5/5 strength to all four extremities. Skin: No suspicious rashes or lesions. Capillary refill less than 2 sec. Neurologic: Cranial nerves II-XII intact. Alert and oriented x 3. Motor: No deficits noted. Sensory: Intact bilaterally all 4 extremities. Reflexes: DTR's intact bilaterally.. Hematologic/Lymphatic: No ecchymosis, no lymphadenopathy. Course Vital Signs Vital signs: Vital Signs Temperature 36.3 C L 04/20/22 12:34 Pulse 64 04/20/22 12:34 Respiratory Rate 16 04/20/22 12:34 Blood Pressure 172/89 H 04/20/22 12:34 Pulse Oximetry 98 04/20/22 12:34 Temperature 36.3 C L 04/20/22 12:34 Pulse 64 04/20/22 12:34 Respiratory Rate 16 04/20/22 12:34 Blood Pressure 172/89 H 04/20/22 12:34 Blood Pressure Position Sitting 04/20/22 12:34 Pulse Oximetry 98 04/20/22 12:34 Oxygen Delivery Method Room Air 04/20/22 12:34 Oxygen Flow Rate 0 04/20/22 12:34 Pain Level 7 04/20/22 12:34
[2022-04-20 13:16] LABS: Bilirubin Negative (Negative); Blood Trace-intact (Negative); Clarity Clear (Clear); Glucose Negative (Negative); Ketones Negative (Negative); Leukocyte Esterase Trace (Negative); Nitrite Negative (Negative); Specific Gravity 1.025 (1.005-1.025); Urobilinogen 0.2 EU/dL (Up TO 0.2); pH 5.5 (5-8)
[2022-04-20 13:24] LABS: Bacteria Rare HPF (Negative); Casts Negative LPF (Negative); Crystals Mod Calcium Oxalate HPF (Negative); Epithelial Cells Rare HPF (Negative); Mucus Moderate (Negative)
[2022-04-20 13:25] LABS: C & S Indicated? Yes
--- NOTE | 2022-04-20 14:46 | DI.VRAD_ITS ---
PROCEDURE INFORMATION: Exam: XR Lumbosacral Spine Exam date and time: 04/20/2022 2:01 PM Age: 76 years old Clinical indication: Low back pain TECHNIQUE: Imaging protocol: XR of the lumbosacral spine. Views: 4 or 5 views. COMPARISON: MR LUMBAR SPINE WO 12/05/2020 8:[address] scan of the abdomen and pelvis 04/19/2022 and lumbar spine x-rays 10/01/2018. FINDINGS: Bones/joints: 5 [id number] lumbar vertebrae. Lumbar lordosis and sacrococcygeal kyphosis are preserved. Minimal anterolisthesis at L4-L5. Moderate disc space narrowing at L5-S1, with endplate sclerosis and osteophyte formation. Facet arthropathy at L4-L5 and L5-S1. Mild endplate osteophytes in the lower thoracic spine. No acute fracture. No focal osseous lesions. Degenerative changes of the hip joints bilaterally. Soft tissues: Unremarkable. Gastrointestinal tract: Non obstructive bowel gas pattern. Vasculature: Extensive arterial calcification of the abdominal aorta and iliac arteries. IMPRESSION: Degenerative changes of the lumbar spine as discussed. This corresponds to the CT scan of the abdomen and pelvis performed 04/19/2022 and is unchanged since previous x-rays of 10/01/2018. Dictated and Authenticated by: Deena Joseph MD. Ordering:KAELYN Dhillon MD
[2022-04-20] MEDS: Lidocaine 5% Patch 1 PATCH TP (15:07)
[2022-04-20] MEDS: Fosfomycin Tromethamine 3 GM PACKET PO (15:38)
[2022-04-20] MEDS: Acetaminophen 325 MG TAB 650 MG PO (15:38)
[2022-04-20 15:39] VITALS: BP 148/86; PULSE 75; RESP 18; TEMP 37; O2SAT 99
== END 2022-04-20 15:58 | disposition home or self-care (01) ==
PROVIDERS: Emergency Provider Registered Nurse Emergency; PCP Family Medicine
DX: M51.36 Other intervertebral disc degeneration, lumbar region (principal); N39.0 Urinary tract infection, site not specified; B95.2 Enterococcus as the cause of diseases classified elsewhere
CPT/HCPCS: 87077; 99283; 72110; 81003; 81015; 87086; 87186; J3490

== ENCOUNTER 2022-04-22 10:50 | Emergency (ER) | payer MEDICARE, SELFPAY ==
[2022-04-22 11:25] VITALS: BP 177/113; PULSE 71; RESP 22; TEMP 36.6
--- NOTE | 2022-04-22 12:15 | DI.MRI_ITS ---
Exam(s) MR LUMBAR SPINE WO EXAM: MR LUMBAR SPINE WO CLINICAL HISTORY: Lumbar Back pain with left-sided radiculopathy. TECHNIQUE: Multiplanar multisequence MRI of the Lumbar spine was performed. COMPARISON: MR MR LUMBAR SPINE WO from 12/05/[address] ABDOMEN PELVIS WO from 04/19/2022 CR,XR XR LUMBAR SPINE COMPLETE from 04/20/2022 FINDINGS: Bones: The last intervertebral disc space is designated the L5/S1 level for the numbering purpose of this examination. The vertebral body heights are well maintained. Alignment is satisfactory. The ma rrow signal characteristics are unremarkable. Cord: The conus tip ends at the T12 level. It is of normal size and signal intensity. T12-L1: No disc herniations or bulges are present. No central spinal canal or neural foraminal stenos is. L1-2: No disc herniations or bulges are present. No central spinal canal or neural foraminal stenosis . L2-3: No disc herniations or bulges are present. No central spinal canal or neural foraminal stenosis . L3-4: Mild diffuse disc bulge. No central spinal canal stenosis.Mild bilateral neural foraminal narr owing. L4-5: Stable diffuse disc bulging. Superimposed left paracentral disc herniation with inferior extru hiren disc material posterior to the L5 vertebral body.. Prominent facet degenerative changes and lig amentous hypertrophy contribute to moderate to severe central canal stenosis as well as bilateral nuno ral foraminal narrowing, left greater than right. L5-S1: Stable moderate loss of disc height. Circumferential endplate osteophytes. Moderate neural f oraminal narrowing, left greater than right. The visualized SI joints and sacrum are well maintained. Soft tissues: Mild dilatation of infrarenal aorta. No visible mural thrombus. The prostate is enlar ged. The paraspinal soft tissues are unremarkable. IMPRESSION: Left paracentral disc herniation with inferior extrusion of disc material at L4-5. Stable moderate t o severe central canal stenosis secondary to combination of degenerative changes. Stable degenerative disc changes and facet degenerative changes at L3-4 and L5-S1. Results of this exam have been verbally communicated with the emergency department provider. DATA REPOSITORY:
[2022-04-22 12:40] LABS: HCT 42.4 % (40.0-50.0); HGB 14.5 g/dL (13.5-17.5); MCH 34.3 pg (27.0-33.0); MCHC 34.2 % (32.0-36.0); MCV 100 fL (80-95); Platelet Count 74 10^3/uL (130-400); RBC 4.23 10^6/uL (4.36-5.78); RDW 11.9 % (11.8-14.1); RDW-SD 44.3 fL; WBC 4.17 10^3/uL (4.4-10.8)
[2022-04-22 12:45] LABS: ALT 156 U/L (16-63); AST 121 U/L (15-37); Albumin 3.5 g/dL (3.4-5.0); Alkaline Phosphatase 61 U/L (46-116); Anion Gap 8.6 mmol/L (3-11); BUN 16 mg/dL (7-18); Bilirubin, Total 0.7 mg/dL (0.2-1.0); CO2 26.4 mmol/L (21.0-32.0); CREATININE 1.5 mg/dL (0.70-1.30); Calcium 8.3 mg/dL (8.5-10.1); Chloride 98 mmol/L (98-107); Glucose 285 mg/dL (74-106); Potassium 3.6 mmol/L (3.5-5.1); Sodium 133 mmol/L (136-145); Total Protein 6.8 g/dL (6.4-8.2)
[2022-04-22] MEDS: MORPHine 10 MG/ML VIAL 2 MG IVP (12:58)
[2022-04-22] MEDS: diazePAM 10 MG/2 ML SYR 2.5 MG IVP (12:58)
[2022-04-22 13:01] LABS: Bilirubin Negative (Negative); Blood Small (Negative); Clarity Clear (Clear); Glucose Negative (Negative); Ketones Negative (Negative); Leukocyte Esterase Small (Negative); Nitrite Negative (Negative); Specific Gravity >= 1.030 (1.005-1.025); Urobilinogen 0.2 EU/dL (Up TO 0.2); pH 5.5 (5-8)
[2022-04-22 13:07] LABS: Bacteria Few HPF (Negative); Epithelial Cells Rare HPF (Negative)
[2022-04-22 13:08] LABS: C & S Indicated? Yes; Casts 0-2 Coarse Granular LPF (Negative); Crystals Negative HPF (Negative); Mucus Moderate (Negative)
[2022-04-22 13:09] LABS: Absolute Basophil Count 0.04 10^3/uL (0.0-0.2); Absolute Lymphocyte Count 0.46 10^3/uL (1.2-3.4); Absolute Monocyte Count 0.04 10^3/uL (0.1-0.8); Absolute Neutrophil Count 3.63 10^3/uL (1.2-6.7); Atypical Lymphocytes % 5; Bands % 3; Diff Comment Manual Differential; RBC Morphology Normal
--- NOTE | 2022-04-22 14:14 | ED.GENADUL_ITS ---
Discharge Plan Disposition Patient Disposition: HOME Condition: Stable Discharge Details Clinical Impression: Acute herniated disc, Degenerative disc disease, lumbar Primary Care Provider: Camacho Barrera ED Provider: Mirza Tom Home Meds and New Rx's Prescriptions: New oxycodone-acetaminophen 5-325 mg tablet 1 tab PO Q6H PRN (Reason: pain) Qty: 7 0RF cyclobenzaprine 5 mg tablet 5 mg PO TID PRNQty: 10 0RF Continued nitroglycerin [Nitrostat] 0.4 mg tablet, sublingual 0.4 mg SL ONCE (DME) blood-glucose meter Misc See Rx Instructions .ROUTE .MEDSUPPLY Qty: 1 0RF Rx Instructions: As directed to check blood glucose. No insulin. Dispense covered brand. (DME) Blood Glucose Test Strip See Rx Instructions .ROUTE .MEDSUPPLY Qty: 100 3RF Rx Instructions: As directed to check blood glucose daily. No insulin. Dispense covered brand. (DME) lancets Misc See Rx Instructions .ROUTE .MEDSUPPLY Qty: 100 3RF Rx Instructions: As directed to check blood glucose daily. No insulin. Dispense covered brand. rivaroxaban 20 mg tablet 20 mg PO DAILY Qty: 90 3RF Rx Instructions: must administer with evening meal metoprolol succinate 50 mg tablet extended release 24 hr 50 mg PO DAILY Label Comments: 10/09/2020 [place] [facility] [place] 07/13[place]21 pt states he has been taking 1/2 of 50 mg tablet since mid October, 09/27/21 he is not taking 50 mg daily due to increase in HR. atorvastatin 10 mg tablet 10 mg PO DAILY Qty: 90 3RF lisinopril 20 mg tablet 20 mg PO DAILY Qty: 90 3RF brimonidine-timolol [Combigan] 10 ML drops 1 drp OU BID Discharge Instructions Instructions: Lumbar Radiculopathy (ED) Additional Instructions: If you develop any new or worsening symptoms such as extreme weakness to your extremities, numbness or tingling, change in bowel or bladder function you should return immediately to the emergency department. Given that you are on blood thinners and was given a steroid injection you should be mindful of any gastrointestinal bleeding. If this occurs please ret urn immediately to the emergency department for reassessment. You may continue to use lidocaine patches and acetaminophen but ensure that you do not take more than 3000 mg in a 24-hour period. Referrals: Camacho Barrera, [Primary Care Provider] - 04/26/22 (Keep your appointment with your primary care provider and follow-up with them for reassessment) Discharge Data Discharge Date/Time-TO BE ENTERED AT DEPARTURE: 04/22/22 15:08 Medical Decision Making Patient presenting to the emergency department for chief complaint of worsening lumbar back pain. Patient reports that he has been having back pain for a while but over the last 48 hours it has acutely worsened. Patient had recently been admitted to the hospital for Syncope and fall. Physical exam shows positive straight leg raise, left lumbar paraspinal tissue tenderness along with lower lumbar spinal tenderness that causes radiculopathy. Patient does have history of AAA. Based on physical exam I have very low suspicion of this but it is at least considered. Given that patient has had x-rays and CT imaging with now continuing to have worsening of symptoms we will plan on performing MRI. Pending labs and imaging patient was given small dose of morphine and diazepam to help with pain Review of labs show a very slight leukopenia, platelet count of 74 otherwise nondiagnostic CBC, CMP shows a given slight decreased sodium at 133, creatinine of 1.5, glucose of 285, and mildly elevated AST and ALT with calcium at 8.3. Urine showed significant concentration with small amount of blood negative for nitrites but small leukocyte Estrace. Reflex to culture was indicated but given that patient has no urinary symptoms I have low suspicion for treating UTI at this time and will wait on culture results. Spoke to radiologist in regards to MR and patient has herniated disc at L4 which correlates to his symptoms. Patient also has significant stenosis. Did discuss with radiologist patient's history of aorta aneurysm which she stated no clinical concern after review of MRI imaging. I also feel that no further work- up is needed due to obvious findings that correlates with patient herniated disc. We will plan to give patient limited supply narcotics to help with severe pain/sleep, will give patient single dose of IM Decadron. Did discuss this with patient given that he is on Xarelto but then also has had history of GI bleeding. Patient states that that occurred after taking multiple high-dose steroids orally. I feel that 1 dose should be safe but patient states understanding to watch for any bleeding symptoms. Patient has follow-up with his primary care provider this Friday which I feel is reasonable and informed patient to discuss with primary care provider possible referral to pain clinic for further interventions as appropriate. Medical Records Medical records reviewed: Yes I reviewed the patient's medical records. Imaging Data Radiologic Study: Imaging: MRI Radiologist's impression: IMPRESSION: Left paracentral disc herniation with inferior extrusion of disc material at L4- 5. Stable moderate to severe central canal stenosis secondary to combination of degenerative changes. Stable degenerative disc changes and facet degenerative changes at L3-4 and L5- S1. Results of this exam have been verbally communicated with the emergency department provider. Lab Data Lab results reviewed: Yes I reviewed the patient's lab results. HPI General Mode of arrival: ambulatory . Date/Time Provider Initiated Documentation: 04/22/22 10:52 . Limitations to Documentation: no limitations . Information obtained by: patient, family, RN notes reviewed and old records reviewed . History of Present Illness 76 year old M presents to the emergency department with the chief complaint of Left sided back pain, described as severe and similar to prior episodes, with intensity rated at 9. Quality is described as sharp, and is localized to the back. Patient extremity. Patient started experiencing this day(s) (2) and it has been constant. Immobilization improves symptom(s), Movement worsens symptoms . Patient notes no other symptoms.. Patient did receive the following treatments prior to arrival, other (Acetaminophen) Related Data Home Medications Medication Instructions Recorded Confirmed brimonidine 0.2 %-timolol 0.5 % 1 drp OU BID 04/03/18 04/20/22 eye drops (Combigan) nitroglycerin 0.4 mg sublingual 0.4 mg sublingual ONCE 08/04/18 04/20/22 tablet (Nitrostat) blood sugar diagnostic (Blood #100 ea 12/04/20 04/20/22 Glucose Test strips) blood-glucose meter #1 ea 12/04/20 04/20/22 lancets #100 ea 12/04/20 04/20/22 metoprolol succinate 50 mg 50 mg PO DAILY 09/27/21 04/20/22 tablet,extended release 24 hr atorvastatin 10 mg tablet 10 mg PO DAILY #90 tab-caps 10/08/21 04/20/22 rivaroxaban 20 mg tablet 20 mg PO DAILY #90 tabs 01/08/22 04/20/22 lisinopril 20 mg tablet 20 mg PO DAILY #90 tabs 02/14/22 04/20/22 cyclobenzaprine 5 mg tablet 5 mg PO TID PRN #10 tabs 04/22/22 oxycodone-acetaminophen 5 mg-325 1 tab PO Q6H PRN pain #7 tabs 04/22/22 mg tablet Previous Rx's Medication Instructions Recorded blood sugar diagnostic (Blood #100 ea 12/04/20 Glucose Test strips) blood-glucose meter #1 ea 12/04/20 lancets #100 ea 12/04/20 atorvastatin 10 mg tablet 10 mg PO DAILY #90 tab-caps 10/08/21 rivaroxaban 20 mg tablet 20 mg PO DAILY #90 tabs 01/08/22 lisinopril 20 mg tablet 20 mg PO DAILY #90 tabs 02/14/22 cyclobenzaprine 5 mg tablet 5 mg PO TID PRN #10 tabs 04/22/22 oxycodone-acetaminophen 5 mg-325 1 tab PO Q6H PRN pain #7 tabs 04/22/22 mg tablet Allergies Allergy/AdvReac Type Severity Reaction Status Date / Time venom-honey bee Allergy Severe HIVES Verified 04/20/22 12:38 [bee venom (honey bee)] TACHYCARDIA Penicillins Allergy Intermediate HIVES Verified 04/20/22 12:38 levetiracetam [From [facility]] AdvReac Severe leukopenia Verified 04/20/22 12:38 prednisone AdvReac Severe rectal Verified 04/20/22 12:38 bleeding and diarrhea aspirin AdvReac Intermediate Nosebleeds Verified 04/20/22 12:38 ceftriaxone AdvReac Intermediate Leukopenia Verified 04/20/22 12:38 simvastatin AdvReac Intermediate LEG PAIN Verified 04/20/22 12:38 DR MCLEOD SHRIMP Allergy Intermediate HIVES , Uncoded 04/20/22 12:38 NAUSEA General Stated Complaint: Nk/Back Pain PALOMA: 3 Review of Systems Constitutional Constitutional: Denies chills and Denies fever(s) Cardiovascular Cardiovascular: Denies chest pain and Denies dyspnea on exertion Respiratory Respiratory: Denies cough and Denies dyspnea on exertion Gastrointestinal Gastrointestinal: Denies abdominal pain, Denies change in bowel habits, Denies diarrhea, Denies nausea and Denies vomiting Genitourinary Genitourinary: Denies difficulty urinating and Denies urinary incontinence Musculoskeletal Musculoskeletal: Reports as per HPI and Reports back pain Neurologic Neurologic: Denies sensory deficit PFSH All Active Problems (Updated 04/22/22 @ 14:36 by Mirza Tom NP) Degenerative disc disease, lumbar (Acute) UTI (urinary tract infection) (Acute) Acute herniated disc (Acute) Syncope (Chronic) Prolonged QT interval (Acute) Atrial tachycardia determined by electrocardiography (Acute) Internal hemorrhoids (Acute) Diabetes mellitus type II, controlled (Chronic) Blood glucose abnormal (Acute 11/03/14) Trigger middle finger of right hand (Acute 04/25/16) Abdominal aortic aneurysm (AAA) 3.0 cm to 5.5 cm in diameter in male (Chronic) Found in October 2018, needs to be rechecked every 3 years Pure hypercholesterolemia (Chronic 01/31/12) goal LDL<70 Metabolic syndrome X (Chronic 02/15/13) goal 215# 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 s/p stenting x 5 2010 or 2011 at [facility] b. presenting symptom was primarily fatigue Hypertension (Chronic) H/O: urinary stone (Chronic) Hx of colonic polyps (Chronic) Benign prostatic hypertrophy (Chronic) Atrial fibrillation (Chronic) 10/09/20 [facility] [place] [facility] Surgical History R small trigger finger release (05/28/16) [place] steriotactic brain [place]27[place] [facility] [place] Family History Mother , HF at age 89. Heart disease Father , stroke HBP at age 90. Essential hypertension Brother , heart at age 82. No problems noted. Brother No problems noted. 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 Current gender identity: male What is your relationship status?: How often do you talk on the phone with friends or family?: three or more times per week How often do you get together with friends or relatives?: three or more times per week Panel score (0-1 are the most socially isolated patients): 2 What type of physical activity do you participate in: walking Frequency: 1-2 times per week Seatbelt use: always Drive intox or ride w/intox dumpster driver: No Working smoke detector in home: Yes Fire extinguisher in home: Yes Carbon monox detector in home: Yes Do you feel safe at home: Yes Do you feel safe in your relationship?: Yes Exam Const General: cooperative and no acute distress Orientation: alert, awake and oriented x3 Neck Neck: normal visual inspection, full ROM and no meningeal signs Resp Effort & Inspection: normal respiratory effort Auscultation: clear to auscultation bilaterally Cardio Rate: regular rate Rhythm: regular rhythm Heart Sounds: S1 normal and S2 normal GI Palpation: no hepatosplenomegaly, no aortic enlargement, no masses and no pulsatile masses Back/Spine/Pelvis Back: no CVA tenderness Thoracic/Lumbar Spine: pain with thoraco-lumbar ROM, paraspinal tenderness (LL lumbar), thoraco-lumbar ROM limited, No thoracic spinal tenderness, lumbar spinal tenderness (Lower L spine) and straight leg raise positive Pelvis: no pain with anterior-posterior compression, no pain with lateral compression and buttock tenderness on the left Neuro General: patient alert, patient awake and patient oriented x3 DTR's: Rt Patellar: 2+ and Lt Patellar: 2+ Extrem General: normal to inspection, full ROM and normal exam except as noted Course Vital Signs Vital signs: Vital Signs Temperature 36.6 C 04/22/22 11:25 Pulse 71 04/22/22 11:25 Respiratory Rate 22 04/22/22 11:25 Blood Pressure 177/113 H 04/22/22 11:25 Temperature 36.6 C 04/22/22 11:25 Temperature Source Tympanic 04/22/22 11:25 Pulse 71 04/22/22 11:25 Respiratory Rate 22 04/22/22 11:25 Respiratory Effort 04/22/22 11:35 Blood Pressure 177/113 H 04/22/22 11:25 Blood Pressure Position Sitting 04/22/22 11:25 Oxygen Delivery Method Room Air 04/22/22 11:25 Oxygen Flow Rate 0 04/22/22 11:25 Pain Level 5 04/22/22 11:25 Lab/Test Results Lab/Test Results: 04/22/22 12:35 Urine - Reflex from Ua Urine Culture - Pending Laboratory Tests Range/Units 04/22/22 04/22/22 04/22/22 12:21 12:21 12:35 WBC (4.4-10.8) 10^3/uL 4.17 L RBC (4.36-5.78) 10^6/uL 4.23 L Hgb (13.5-17.5) g/dL 14.5 Hct (40.0-50.0) % 42.4 MCV (80-95) fL 100 H D MCH (27.0-33.0) pg 34.3 H MCHC (32.0-36.0) % 34.2 D RDW (11.8-14.1) % 11.9 Plt Count (130-400) 10^3/uL 74 L MPV (8.0-11.0) fL 10.0 Immature Gran % 0.0 Neutrophils % 84.0 Band Neutrophils % 3 Lymphocytes % 6.0 Atypical Lymphs % 5 Monocytes % 1.0 Eosinophils % 0.0 Basophils % 1.0 Nucleated RBC % (0.0-0.3) % 0.0 Absolute Neutrophils (1.2-6.7) 10^3/uL 3.63 Absolute Lymphocytes (1.2-3.4) 10^3/uL 0.46 L Absolute Monocytes (0.1-0.8) 10^3/uL 0.04 L Absolute Eosinophils (0.0-0.7) 10^3/uL 0.00 Absolute Basophils (0.0-0.2) 10^3/uL 0.04 RBC Morphology Normal Sodium (136-145) mmol/L 133 L Potassium (3.5-5.1) mmol/L 3.6 Chloride (98-107) mmol/L 98 Carbon Dioxide (21.0-32.0) mmol/L 26.4 Anion Gap (3-11) mmol/L 8.6 BUN (7-18) mg/dL 16 Creatinine (0.70-1.30) mg/dL 1.5 H Estimated GFR/1.73 m2 (mL/min/1.73m2) 45.50 Glucose (74-106) mg/dL 285 H Calcium (8.5-10.1) mg/dL 8.3 L Total Bilirubin (0.2-1.0) mg/dL 0.7 AST (15-37) U/L 121 H ALT (16-63) U/L 156 H Alkaline Phosphatase (46-116) U/L 61 Total Protein (6.4-8.2) g/dL 6.8 Albumin (3.4-5.0) g/dL 3.5 Urine Color (Yellow) Yellow Urine Clarity (Clear) Clear Urine pH (5-8) 5.5 Ur Specific [place] (1.005-1.025) >= 1.030 H Urine Protein (Negative) mg/dL Negative Urine Ketones (Negative) mg/dL Negative Urine Blood (Negative) Small H Urine Nitrite (Negative) Negative Urine Bilirubin (Negative) Negative Urine Urobilinogen (Up TO 0.2) EU/dL 0.2 Ur Leukocyte Esterase (Negative) Small H Urine RBC (0-2) HPF 10-20 H Urine WBC (0-5) HPF 10-20 H Ur Epithelial Cells (Negative) HPF Rare Urine Crystals (Negative) HPF Negative Urine Bacteria (Negative) HPF Few Urine Casts (Negative) LPF 0-2 Coarse Granular Urine Mucus (Negative) Moderate Ur Culture Indicated? Yes Urine Glucose (Negative) mg/dL Negative PAWSS Have you Been Recently Intoxicated or Drunk Within the Last 30 days?: No Have you Ever Experienced Previous Episodes of Alcohol Withdrawal?: No Have you ever Experienced Withdrawal Seizures?: No Have you ever Experienced Delirium Tremens(DT)s?: No Have you ever undergone Alcohol Rehabilitation Treatment (i.e, inpt ot outpatient treatment programs)?: No Have you ever Experienced Blackouts?: No Have you ever Combined Alcohol with other Downers within the last 90 days?: No Have you ever Combined Alcohol with any other Substance of Abuse during the last 90 days?: No Positive Blood Alcohol level on Presentation? [PCS.BAL]: Unable to Obtain Evidence of Increased Autonomic Activity (i.e. HR>120, tremor, sweating, agitation, nausea)?: No Result: 0
[2022-04-22] MEDS: Dexamethasone 10 MG/ML VIAL IM (15:05)
[2022-04-22 15:06] VITALS: BP 162/93; PULSE 67; RESP 16; TEMP 36.6; O2SAT 97
== END 2022-04-22 15:08 | disposition home or self-care (01) ==
PROVIDERS: Emergency Provider Nurse Practitioner Family; PCP Family Medicine
DX: M51.16 Intervertebral disc disorders with radiculopathy, lumbar region (principal)
CPT/HCPCS: 36415; 80053; 96372; 96374; 96375; 99284; 72148; 81003; 81015; 85025; 87086; J1100; J2270; J3360

== ENCOUNTER 2022-05-01 14:44 | Emergency (ER) | payer MEDICARE, SELFPAY ==
[2022-05-01] VITALS (30 sets, daily range): BP systolic 149–183; BP diastolic 72–96; PULSE 77–90; RESP 13–22; TEMP 36.7; O2SAT 93–99
--- NOTE | 2022-05-01 14:45 | RT.EKG_ITS ---
APPROVED REPORT Exam: Resting ECG Reason for Exam: dizzy Patient Location: E HR:80 bpm ECG Measurements Heart Rate 80 AXIS CO 154 P 88 QRSd 81 QRS 29 QT 386 T 91 QTc 445 Conclusion Sinus rhythm...normal P axis, V-rate 60- 99
[2022-05-01 16:01] LABS: Abs Immature Grans 0.05 10^3/uL (0.0-0.06); Absolute Basophil Count 0.05 10^3/uL (0.0-0.2); Absolute Lymphocyte Count 0.48 10^3/uL (1.2-3.4); Basophils % 0.4; Eosinophils % 5.5; HCT 48.1 % (40.0-50.0); HGB 16.9 g/dL (13.5-17.5); Immature Grans % 0.4; Lymphocytes % 3.9; MCH 32.3 pg (27.0-33.0); MCHC 35.1 % (32.0-36.0); MCV 92 fL (80-95); MPV 10.4 fL (8.0-11.0); Monocytes % 5.9; Neutrophils % 83.9; Platelet Count 283 10^3/uL (130-400); RBC 5.24 10^6/uL (4.36-5.78); RDW-SD 43.4 fL; WBC 12.28 10^3/uL (4.4-10.8)
--- NOTE | 2022-05-01 16:02 | ED.GENADUL_ITS ---
Discharge Plan Disposition Patient Disposition: HOME Condition: Stable Discharge Details Clinical Impression: Diarrhea, Acute dehydration, Elevated bilirubin Primary Care Provider: Camacho Barrera ED Provider: Dean Guerrero Home Meds and New Rx's Prescriptions: Continued nitroglycerin [Nitrostat] 0.4 mg tablet, sublingual 0.4 mg SL ONCE (DME) blood-glucose meter Misc See Rx Instructions .ROUTE .MEDSUPPLY Qty: 1 0RF Rx Instructions: As directed to check blood glucose. No insulin. Dispense covered brand. (DME) Blood Glucose Test Strip See Rx Instructions .ROUTE .MEDSUPPLY Qty: 100 3RF Rx Instructions: As directed to check blood glucose daily. No insulin. Dispense covered brand. (DME) lancets Misc See Rx Instructions .ROUTE .MEDSUPPLY Qty: 100 3RF Rx Instructions: As directed to check blood glucose daily. No insulin. Dispense covered brand. metoprolol succinate 50 mg tablet extended release 24 hr 50 mg PO DAILY Label Comments: 10/09/2020 Dr Nelson [facility] [place] , 07/13/21 pt states he has been taking 1/2 of 50 mg tablet since mid October, 09/27/21 he is not taking 50 mg daily due to increase in HR. RH oxycodone-acetaminophen 5-325 mg tablet 1 tab PO Q6H MDD 20 mg PRN (Reason: pain) Qty: 28 0RF atorvastatin 10 mg tablet 10 mg PO DAILY Qty: 90 3RF lisinopril 20 mg tablet 20 mg PO DAILY Qty: 90 3RF brimonidine-timolol [Combigan] 10 ML drops 1 drp OU BID Held rivaroxaban 20 mg tablet 20 mg PO DAILY Qty: 90 3RF Hold Instructions: Resume on 05/02/22. Rx Instructions: must administer with evening meal Discharge Instructions Instructions: Dehydration (ED), Acute Diarrhea (ED) Additional Instructions: Hold your blood thinner rivaroxaban today. You can restart tomorrow evening if bleeding stops. Drink plenty of clear fluids in order to stay hydrated. Please contact your primary care physician to arrange follow-up. Return to the ER immediately for any worsening or new concerning symptoms. Referrals: Camacho Barrera DO [Primary Care Provider] - Discharge Data Discharge Date/Time-TO BE ENTERED AT DEPARTURE: 05/01/22 18:58 Medical Decision Making 1615 --76-year-old male with multi medical problems here with lightheadedness today after excessive and frequent loose bowel movements overnight. Patient is hemodynamically stable while lying flat. Abdominal exam is benign. Patient is dehydrated. Considered arrhythmia. EKG was reviewed and interpreted by me: Sinus rhythm, 80 bpm, QTC 445, no STEMI, please see report, nondiagnostic. Plan to give IV fluids and will check labs for electrolyte abnormalities and NADEEM. Patient did have blood-tinged to his stool this morning after multiple episodes of frequent bowel movements overnight. I suspect this is inflammatory. -- Labs reviewed: Mild hyperbilirubinemia noted. Mild leukocytosis noted. Patient did have elevated BUN consistent with hypovolemia. No significant electrolyte abnormalities. Patient reassessed after IV fluid bolus and notes fe eling much better. Suspect gastroenteritis. While he was urinating in a odd position on the side of the bed he noticed some discomfort. Considered urinary tract infection. A urinalysis was reviewed and does have 5-10 WBCs and 3-5 RBCs, rare epithelial cells are present, small leukocyte Estrace, negative nitrite. Reviewed results with the patient. He notes he urinated again while standing and had no discomfort. Discussed initiating antibiotics and patient provided informed refusal at this time and would prefer to wait for culture. He agrees with cultures positive. Pursue antibiotics at that time but does not want to risk worsening diarrhea at this time. Reviewed oral rehydration therapy with the patient. Patient was instructed to follow-up with his primary care physician. I will ask care management to help arrange timely follow-up with PCP. Patient has additional questions regarding back pain and is concerned that his pain management appointment is too far out noting August as next available. I would agree that this seems excessively delayed. He would benefit from more timely outpatient follow-up for his back pain given severity. HPI General Mode of arrival: ambulatory . Date/Time Provider Initiated Documentation: 05/01/22 14:53 . Limitations to Documentation: no limitations . Information obtained by: patient . HPI Narrative: 76-year-old male with multiple medical problems including history of prolonged QT interval, atrial fibrillation, atrial tachycardia, diabetes, AAA, coronary artery disease, hypertension, recently diagnosed with lumbar disc herniation, here with chief complaint of dizziness. Patient notes dizziness and feels like he is lightheaded today. Symptoms have been persistent since this morning. Symptoms worse with ambulation. Patient notes he has not been feeling well over the past 2 days. He describes this as having a lack of appetite. Last night he started to experience loose stool and has had frequent episodes of loose bowel movements overnight. He states he probably had 10 or more bowel movements. Initially bowel movements were brown and then clear in coloration. This morning he did have a couple episodes with blood tinge. No adalberto blood. He has no associated abdominal pain. He notes back pain has persisted and does radiate down his left leg. He denies difficulty controlling bowel movements or urination. No incontinence. Patient denies associated fever. He is concerned that a GI bug is going around with friends/acquaintances. Patient was seen by [facility] today and sent to the ED for evaluation. Related Data Home Medications Medication Instructions Recorded Confirmed brimonidine 0.2 %-timolol 0.5 % 1 drp OU BID 04/03/18 05/03/22 eye drops (Combigan) nitroglycerin 0.4 mg sublingual 0.4 mg sublingual ONCE 08/04/18 05/03/22 tablet (Nitrostat) blood sugar diagnostic (Blood #100 ea 12/04/20 05/03/22 Glucose Test strips) blood-glucose meter #1 ea 12/04/20 05/03/22 lancets #100 ea 12/04/20 05/03/22 metoprolol succinate 50 mg 50 mg PO DAILY 09/27/21 05/03/22 tablet,extended release 24 hr atorvastatin 10 mg tablet 10 mg PO DAILY #90 tab-caps 10/08/21 05/03/22 rivaroxaban 20 mg tablet 20 mg PO DAILY #90 tabs 01/08/22 05/03/22 lisinopril 20 mg tablet 20 mg PO DAILY #90 tabs 02/14/22 05/03/22 oxycodone-acetaminophen 5 mg-325 1 tab PO Q6H PRN pain #28 tabs 04/26/22 05/03/22 mg tablet Previous Rx's Medication Instructions Recorded blood sugar diagnostic (Blood #100 ea 12/04/20 Glucose Test strips) blood-glucose meter #1 ea 12/04/20 lancets #100 ea 12/04/20 atorvastatin 10 mg tablet 10 mg PO DAILY #90 tab-caps 10/08/21 rivaroxaban 20 mg tablet 20 mg PO DAILY #90 tabs 01/08/22 lisinopril 20 mg tablet 20 mg PO DAILY #90 tabs 02/14/22 oxycodone-acetaminophen 5 mg-325 1 tab PO Q6H PRN pain #28 tabs 04/26/22 mg tablet Allergies Allergy/AdvReac Type Severity Reaction Status Date / Time venom-honey bee Allergy Severe HIVES Verified 05/03/22 14:13 [bee venom (honey bee)] TACHYCARDIA Penicillins Allergy Intermediate HIVES Verified 05/03/22 14:13 levetiracetam [From [facility]] AdvReac Severe leukopenia Verified 05/03/22 14:13 prednisone AdvReac Severe rectal Verified 05/03/22 14:13 bleeding and diarrhea aspirin AdvReac Intermediate Nosebleeds Verified 05/03/22 14:13 ceftriaxone AdvReac Intermediate Leukopenia Verified 05/03/22 14:13 simvastatin AdvReac Intermediate LEG PAIN Verified 05/03/22 14:13 DR MCLEOD SHRIMP Allergy Intermediate HIVES , Uncoded 05/03/22 14:13 NAUSEA General Stated Complaint: GI Bleed PALOMA: 3 Review of Systems All systems reviewed & are unremarkable except as noted in HPI and below Constitutional Constitutional: Reports as per HPI and Denies fever(s) Cardiovascular Cardiovascular: Denies chest pain and Denies dyspnea Respiratory Respiratory: Denies cough and Denies dyspnea Gastrointestinal Gastrointestinal: Reports as per HPI PFSH All Active Problems (Updated 05/01/22 @ 18:47 by Dean Guerrero MD) Diarrhea (Acute) Acute dehydration (Acute) Elevated bilirubin (Acute) 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 (Acute) Degenerative disc disease, lumbar (Acute) UTI (urinary tract infection) (Acute) Acute herniated disc (Acute) Syncope (Chronic) Prolonged QT interval (Acute) Atrial tachycardia determined by electrocardiography (Acute) Internal hemorrhoids (Acute) Diabetes mellitus type II, controlled (Chronic) Blood glucose abnormal (Acute 11/03/14) Trigger middle finger of right hand (Acute 04/25/16) Abdominal aortic aneurysm (AAA) 3.0 cm to 5.5 cm in diameter in male (Chronic) Found in October 2018, needs to be rechecked every 3 years Pure hypercholesterolemia (Chronic 01/31/12) goal LDL<70 Metabolic syndrome X (Chronic 02/15/13) goal 215# 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 s/p stenting x 5 2010 or 2011 at [facility] b. presenting symptom was primarily fatigue Hypertension (Chronic) H/O: urinary stone (Chronic) Hx of colonic polyps (Chronic) Benign prostatic hypertrophy (Chronic) Atrial fibrillation (Chronic) [place] [facility] [place] [facility] [place] R small trigger finger release (05/28/16) [place] steriotactic brain bx (01/27/15) [facility] [place] Family History Mother , HF at age 89. Heart disease Father , stroke HBP at age 90. Essential hypertension Brother , heart at age 82. No problems noted. Brother No problems noted. 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 Current gender identity: male What is your relationship status?: How often do you talk on the phone with friends or family?: three or more times per week How often do you get together with friends or relatives?: three or more times per week Panel score (0-1 are the most socially isolated patients): 2 What type of physical activity do you participate in: walking Frequency: 1-2 times per week Seatbelt use: always Drive intox or ride w/intox local company intermodal truck driver: No Working smoke detector in home: Yes Fire extinguisher in home: Yes Carbon monox detector in home: Yes Do you feel safe at home: Yes Do you feel safe in your relationship?: Yes Exam Const General: cooperative and no acute distress HENMT Mouth: mucous membranes dry Eyes Conjunctivae: normal conjunctivae Sclera: normal sclerae EOM: EOM intact bilaterally Neck Neck: trachea midline and supple Resp Auscultation: clear to auscultation bilaterally, no rales, no rhonchi and no wheezes Cardio Rate: regular rate and not tachycardic Rhythm: regular rhythm GI Inspection: non-distended Palpation: soft, not firm, no guarding, no masses, not rigid and nontender Auscultation: normal bowel sounds Skin General skin exam: no rashes or lesions noted Neuro General: patient alert, patient awake, patient oriented x3 and tone normal Cognition: normal cognition Other: No saddle anesthesia Extrem General: no edema Psych Appearance: grossly normal Mental Status: mental status grossly normal Speech and Movement: speech and movement normal Course Vital Signs Vital signs: Vital Signs Temperature 36.7 C 05/01/22 14:53 Pulse 80 05/01/22 14:53 Respiratory Rate 16 05/01/22 14:53 Blood Pressure 158/79 H 05/01/22 14:53 Pulse Oximetry 97 05/01/22 14:53 Temperature 36.7 C 05/01/22 14:53 Temperature Source Temporal Artery Scan 05/01/22 14:53 Pulse 80 05/01/22 14:53 Respiratory Rate 16 05/01/22 14:53 Respiratory Effort Non-Labored 05/01/22 15:08 Blood Pressure 158/79 H 05/01/22 14:53 Blood Pressure Position Supine 05/01/22 14:53 Pulse Oximetry 97 05/01/22 14:53 Oxygen Delivery Method Room Air 05/01/22 14:53 Oxygen Flow Rate 0 05/01/22 14:53 Pain Level 0 05/01/22 15:50 PAWSS Have you Been Recently Intoxicated or Drunk Within the Last 30 days?: No Have you Ever Experienced Previous Episodes of Alcohol Withdrawal?: No Have you ever Experienced Withdrawal Seizures?: No Have you ever Experienced Delirium Tremens(DT)s?: No Have you ever undergone Alcohol Rehabilitation Treatment (i.e, inpt ot outpatient treatment programs)?: No Have you ever Experienced Blackouts?: No Have you ever Combined Alcohol with other Downers within the last 90 days?: No Have you ever Combined Alcohol with any other Substance of Abuse during the last 90 days?: No Positive Blood Alcohol level on Presentation? [PCS.BAL]: No Evidence of Increased Autonomic Activity (i.e. HR>120, tremor, sweating, agitation, nausea)?: No Result: 0
[2022-05-01 16:03] LABS: Absolute Eosinophil Count 0.68 10^3/uL (0.0-0.7); Absolute Monocyte Count 0.72 10^3/uL (0.1-0.8)
[2022-05-01 16:51] LABS: ALT 36 U/L (16-63); AST 22 U/L (15-37); Albumin 4.3 g/dL (3.4-5.0); Alkaline Phosphatase 111 U/L (46-116); Anion Gap 11.4 mmol/L (3-11); BUN 19 mg/dL (7-18); Bilirubin, Total 1.6 mg/dL (0.2-1.0); CO2 25.6 mmol/L (21.0-32.0); CREATININE 0.9 mg/dL (0.70-1.30); Calcium 10.1 mg/dL (8.5-10.1); Chloride 99 mmol/L (98-107); Glucose 124 mg/dL (74-106); Potassium 4.5 mmol/L (3.5-5.1); Sodium 136 mmol/L (136-145); Total Protein 9.1 g/dL (6.4-8.2)
[2022-05-01] MEDS: Lactated Ringers 500 ML IV (16:56)
[2022-05-01 17:42] LABS: Lipase 53 U/L (73-393)
[2022-05-01 17:49] LABS: Bilirubin Negative (Negative); Blood Trace-lysed (Negative); Clarity Clear (Clear); Glucose Negative (Negative); Ketones 15 mg/dL (Negative); Leukocyte Esterase Small (Negative); Nitrite Negative (Negative); Specific Gravity >= 1.030 (1.005-1.025); Urobilinogen 0.2 EU/dL (Up TO 0.2); pH 5.5 (5-8)
[2022-05-01 18:25] LABS: Bacteria Rare HPF (Negative); C & S Indicated? Yes; Crystals Negative HPF (Negative); Epithelial Cells Rare HPF (Negative); Mucus Moderate (Negative)
--- NOTE | 2022-05-01 18:48 | NUR.NOTE ---
Nursing Note: Referral faxed to PCP for pain managment in 1 to 2 weeks. Diane Valenzuela
== END 2022-05-01 18:58 | disposition home or self-care (01) ==
PROVIDERS: Emergency Provider Student in an Organized Health Care Education/Training Program; PCP Family Medicine
DX: R19.7 Diarrhea, unspecified (principal); E86.0 Dehydration; E80.7 Disorder of bilirubin metabolism, unspecified; R42 Dizziness and giddiness
CPT/HCPCS: 36415; 80053; 83690; 86850; 86900; 86901; 93005; 96360; 99284; 81003; 81015; 85025; 87086; 93010; 99283

== ENCOUNTER → 2022-05-21 08:43 | Outpatient (BNVA) | payer MEDICARE, SELFPAY | PROVIDERS: PCP Family Medicine; Referring Provider Family Medicine; Visit Provider Internal Medicine Cardiovascular Disease | DX: R55 Syncope and collapse (principal); I48.91 Unspecified atrial fibrillation; I25.10 Atherosclerotic heart disease of native coronary artery without angina pectoris | CPT/HCPCS: 93005; 99214; 99213 ==

== ENCOUNTER 2022-05-21 08:57 | Outpatient (CLI) | payer MEDICARE, SELFPAY ==
--- NOTE | 2022-05-21 08:45 | RT.EKG_ITS ---
APPROVED REPORT Exam: Resting ECG Reason for Exam: afib Patient Location: O HR:64 bpm ECG Measurements Heart Rate 64 AXIS TN 158 P 47 QRSd 80 QRS 69 QT 621 T 118 QTc 641 Conclusion Sinus rhythm...normal P axis, V-rate 50- 99 Atrial premature complex...SV complex w/ short R-R interval Low voltage, precordial leads...precordial leads <1.0mV Nonspecific T abnormalities, lateral leads...T <-0.10mV, I aVL V5 V6 Prolonged QT interval...QTc >500mS Baseline wander in lead(s) V3
== END 2022-05-21 08:58 | disposition home or self-care (01) ==
LOC: DI.CARD 08:58
PROVIDERS: PCP Family Medicine; Visit Provider Internal Medicine Cardiovascular Disease
DX: I48.91 Unspecified atrial fibrillation (principal); R94.31 Abnormal electrocardiogram [ECG] [EKG]
CPT/HCPCS: 93010

== ENCOUNTER 2022-05-29 14:44 | Outpatient (CLI) | payer MEDICARE, SELFPAY ==
--- NOTE | 2022-05-29 14:30 | RT.EKG_ITS ---
APPROVED REPORT Exam: Resting ECG Reason for Exam: tachycardia Patient Location: O HR:121 bpm ECG Measurements Heart Rate 121 AXIS MA 109 P 0 QRSd 84 QRS 78 QT 367 T 88 QTc 521 Conclusion Suspect atrial flutter Prolonged QT interval...QTc >500mS
== END 2022-05-29 14:45 | disposition home or self-care (01) ==
LOC: DI.KIM 14:45
PROVIDERS: PCP Family Medicine; Visit Provider Nurse Practitioner
DX: R00.0 Tachycardia, unspecified (principal); R94.31 Abnormal electrocardiogram [ECG] [EKG]
CPT/HCPCS: 93010

== ENCOUNTER 2022-07-29 14:30 | Outpatient (REF) | payer MEDICARE, SELFPAY | END 2022-07-29 14:31 | disposition home or self-care (01) | LOC: LBN 14:30 | PROVIDERS: PCP Family Medicine; Visit Provider Nurse Practitioner | DX: R82.90 Unspecified abnormal findings in urine (principal) | CPT/HCPCS: 87077; 87086; 87186 ==

== ENCOUNTER 2023-01-04 04:46 | Emergency (ER) | payer MEDICARE, SELFPAY ==
[2023-01-04] VITALS (27 sets, daily range): BP systolic 116–158; BP diastolic 77–99; PULSE 112–118; RESP 17–31; TEMP 37.7; O2SAT 93–98
--- NOTE | 2023-01-04 04:30 | RT.EKG_ITS ---
APPROVED REPORT Exam: Resting ECG Reason for Exam: chest pain Patient Location: E HR:116 bpm ECG Measurements Heart Rate 116 AXIS WA 140 P 262 QRSd 86 QRS 90 QT 402 T [id number] QTc 560 Conclusion Ectopic atrial tachycardia, unifocal...abnormal P axis, V-rate> 99 Low voltage, precordial leads...precordial leads <1.0mV Physician: no stemi
--- NOTE | 2023-01-04 04:55 | W.ED.GENAD ---
Discharge Plan Disposition Patient Disposition: Home Condition: Improving Discharge Details Clinical Impression: Community acquired pneumonia, Acute UTI Primary Care Provider: Camacho Barrera ED Provider: Tylor Santiago Home Meds and New Rx's Prescriptions: New levofloxacin 750 mg tablet 750 mg PO DAILY Qty: 7 0RF No Action (DME) blood-glucose meter Misc See Rx Instructions .ROUTE .MEDSUPPLY Qty: 1 0RF Rx Instructions: As directed to check blood glucose. No insulin. Dispense covered brand. (DME) Blood Glucose Test Strip See Rx Instructions .ROUTE .MEDSUPPLY Qty: 100 3RF Rx Instructions: As directed to check blood glucose daily. No insulin. Dispense covered brand. (DME) lancets Misc See Rx Instructions .ROUTE .MEDSUPPLY Qty: 100 3RF Rx Instructions: As directed to check blood glucose daily. No insulin. Dispense covered brand. rivaroxaban 20 mg tablet 20 mg PO DAILY Qty: 90 3RF Hold Instructions: Resume on 05/02/22. Rx Instructions: must administer with evening meal timolol maleate 0.5 % gel forming solution 1 drp ophthalmic (eye) DAILY clotrimazole 1 % cream 1 applic topical BID Qty: 45 3RF lisinopril 20 mg tablet 20 mg PO DAILY Qty: 90 3RF metoprolol succinate 100 mg tablet extended release 24 hr 100 mg PO DAILY Qty: 90 3RF atorvastatin 10 mg tablet 10 mg PO DAILY Qty: 90 3RF Discharge Instructions Instructions: Community Acquired Pneumonia (ED) Additional Instructions: At this time you have evidence of pneumonia. Your flu/COVID test was negative. Please take Tylenol as needed for fever. Please take the antibiotic levofloxacin as directed. Please take 1 tablet every morning until your prescription is done. You have been given 2 tablets to hold you over the weekend until you are able to fruit picker your prescription. Your prescription has been sent to your pharmacy on file. If you notice any worsening of your symptoms, or any new symptoms such as vomiting, diarrhea, fever, chills, shortness of breath, chest pain, numbness, weakness, or fainting , please return immediately to the emergency department for reevaluation. Please follow up with your primary care provider as soon as possible for reassessment and reevaluation. As always, it was a pleasure participating in your medical care today. Referrals: Camacho Barrera DO [Primary Care Provider] - Medical Decision Making This is a 77-year-old male with a past medical history of abdominal aortic aneurysm which is stable, type 2 diabetes, atrial fibrillation on Xarelto, hypertension, high cholesterol, who presents today for evaluation of cough and fever. Patient states that for the last 3 days he has had a mild cough, and intermittent fever, T-max was 102. He has also noticed continued and worsening fatigue over the last 3 days. He does admit to mild chest pain when coughing. He denies any exertional chest pain though. He denies any vomiting or diarrhea. He has had his flu vaccine. No recent COVID or influenza infections. No other complaints at this time. No other modifying factors. ExaM demonstrates crackles in the left lower lung field. EKG is stable. Differential is highest for bacterial pneumonia but also includes COVID or flu. We will evaluate for these etiologies, treat with Levaquin secondary to his penicillin allergy, monitor closely and reassess. 6:30 AM Laboratory work-up has returned, patient has an elevated white count at 15, no bands, mild left shift. Initial lactate was elevated at 2.6, renal function stable. Troponin normal, proBNP slightly elevated at 1100, which is slightly higher than his normal. Urinalysis shows evidence of potential urinary tract infection. Chest x-ray was read as negative, however I felt that this did not correlate with my clinical exam. Bedside limited ultrasound was performed which demonstrates B-lines and consolidation in the left. Minimal scant B-lines on the right. Symptoms consistent on ultrasound with community-acquired pneumonia. We will continue to treat. We will get a repeat lactate after his fluid bolus of 750 cc. 5:15 AM Urinalysis has returned and also shows evidence concerning for potential mild infection. After reassessment of a liter of normal saline the patient feels much better. We did get him up he ambulated well around the emergency department feels well and is requesting to go home. I did discuss with him the risks and benefits and did give him the option of admission overnight in the hospital versus discharge and the patient prefers to go home understanding what this entails, and the scenario. I did discuss with him that if he has any worsening shortness of breath, or difficulty breathing whatsoever or feels like his condition is worsening in general that he should return immediately for reassessment. We will give him 2 tablets of Levaquin for home use. QT was stable. With his penicillin allergy, and the evidence of his urinary tract infection I do feel that this would be a more ideal choice for the treatment of his pneumonia than just doxycycline. Discussed all of this with the patient's as well. Prescription sent to his pharmacy for the remainder of the course. I have extensively reviewed the treatment plan and discharge instructions with the patient and their family. I have addressed all patient concerns at this time. The patient and family was made aware of what symptoms to monitor for that would warrant a return to the emergency department. Discussed the plan with the patient and family, they demonstrate verbal understanding and agreement with our assessment and plan at this time. The documentation in this chart was dictated using [employer] dictation software. Please excuse any dictation errors. FINDINGS: Lungs: The lung parenchyma is clear. Pleural spaces: No pneumothorax. No pleural effusion. Heart/Mediastinum: The cardiomediastinal silhouette is within normal limits. Bones/joints: Unremarkable. IMPRESSION: No acute cardiopulmonary abnormality. Thank you for allowing us to participate in the care of your patient. Dictated and Authenticated by: Juaquin Vazquez MD 01/04/2023 5:47 AM Eastern Time ([place] & [place]) HPI General Date/Time Provider Initiated Documentation: 01/04/23 05:42. HPI Narrative: This is a 77-year-old male with a past medical history of abdominal aortic aneurysm which is stable, type 2 diabetes, atrial fibrillation on Xarelto, hypertension, high cholesterol, who presents today for evaluation of cough and fever. Patient states that for the last 3 days he has had a mild cough, and intermittent fever, T-max was 102. He has also noticed continued and worsening fatigue over the last 3 days. He does admit to mild chest pain when coughing. He denies any exertional chest pain though. He denies any vomiting or diarrhea. He has had his flu vaccine. No recent COVID or influenza infections. No other complaints at this time. No other modifying factors. Related Data Home Medications Medication Instructions Recorded Confirmed blood sugar diagnostic (Blood #100 ea 12/04/20 01/04/23 Glucose Test strips) blood-glucose meter #1 ea 12/04/20 01/04/23 lancets #100 ea 12/04/20 01/04/23 rivaroxaban 20 mg tablet 20 mg PO DAILY #90 tabs 01/08/22 01/04/23 lisinopril 20 mg tablet 20 mg PO DAILY #90 tabs 02/14/22 01/04/23 clotrimazole 1 % topical cream 1 applic topical BID #45 grams 05/29/22 01/04/23 timolol maleate 0.5 % eye gel 1 drp ophthalmic (eye) DAILY 06/21/22 01/04/23 forming solution metoprolol succinate 100 mg 100 mg PO DAILY #90 tabs 07/11/22 01/04/23 tablet,extended release 24 hr atorvastatin 10 mg tablet 10 mg PO DAILY #90 tab-caps 10/10/22 01/04/23 levofloxacin 750 mg tablet 750 mg PO DAILY #7 tabs 01/04/23 Previous Rx's Medication Instructions Recorded blood sugar diagnostic (Blood #100 ea 12/04/20 Glucose Test strips) blood-glucose meter #1 ea 12/04/20 lancets #100 ea 12/04/20 rivaroxaban 20 mg tablet 20 mg PO DAILY #90 tabs 01/08/22 lisinopril 20 mg tablet 20 mg PO DAILY #90 tabs 02/14/22 clotrimazole 1 % topical cream 1 applic topical BID #45 grams 05/29/22 metoprolol succinate 100 mg 100 mg PO DAILY #90 tabs 07/11/22 tablet,extended release 24 hr atorvastatin 10 mg tablet 10 mg PO DAILY #90 tab-caps 10/10/22 levofloxacin 750 mg tablet 750 mg PO DAILY #7 tabs 01/04/23 Allergies Allergy/AdvReac Type Severity Reaction Status Date / Time venom-honey bee Allergy Severe HIVES Verified 01/04/23 04:53 [bee venom (honey bee)] TACHYCARDIA Penicillins Allergy Intermediate HIVES Verified 01/04/23 04:53 levetiracetam [From [facility]] AdvReac Severe leukopenia Verified 01/04/23 04:53 prednisone AdvReac Severe rectal Verified 01/04/23 04:53 bleeding and diarrhea aspirin AdvReac Intermediate Nosebleeds Verified 01/04/23 04:53 ceftriaxone AdvReac Intermediate Leukopenia Verified 01/04/23 04:53 simvastatin AdvReac Intermediate LEG PAIN Verified 01/04/23 04:53 DR MCLEOD SHRIMP Allergy Intermediate HIVES , Uncoded 01/04/23 04:53 NAUSEA General Stated Complaint: Chest Pain PALOMA: 2 Review of Systems All systems reviewed & are unremarkable except as noted in HPI and below PFSH All Active Problems (Updated 01/04/23 @ 07:17 by Tylor Santiago DO) Community acquired pneumonia (Acute) Acute UTI (Acute) Beat, premature ventricular (Acute ~08/2022) 09/11/22 Cardiology Atrial fibrillation, persistent (Acute ~08/2022) 08/28/22 Cardiology 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 (Acute) Syncope (Chronic) Prolonged QT interval (Acute) Atrial tachycardia determined by electrocardiography (Acute) Internal hemorrhoids (Acute) Diabetes mellitus type II, controlled (Chronic) Blood glucose abnormal (Acute 11/03/14) Trigger middle finger of right hand (Acute 04/25/16) Abdominal aortic aneurysm (AAA) 3.0 cm to 5.5 cm in diameter in male (Chronic) Found in October 2018, needs to be rechecked every 3 years Pure hypercholesterolemia (Chronic 01/31/12) goal LDL<70 Metabolic syndrome X (Chronic 02/15/13) goal 215# 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 s/p stenting x 5 2010 or 2011 at [facility] b. presenting symptom was primarily fatigue Hypertension (Chronic) H/O: urinary stone (Chronic) Hx of colonic polyps (Chronic) Benign prostatic hypertrophy (Chronic) Atrial fibrillation (Chronic) 10/09/20 [facility] Surgical History R small trigger finger release (05/28/16) [place] S/P ablation of atrial fibrillation (10/2018) steriotactic brain bx (01/27/15) [facility] [place] bx brain abscess Family History Mother , HF at age 89. Heart disease Father , stroke HBP at age 90. Essential hypertension Brother , heart at age 82. No problems noted. Brother No problems noted. Social History Smoking/Tobacco Use Status: Never Smoking risk assessment performed?: Yes Alcohol Intake: current Alcohol Intake frequency: 0-2 drinks per day Alcohol type: hard liquor Drug use: Never Substance use type: does not use Adopted: No Caregiver/Support person: No Foster care: No Household members: spouse Housing: house Number of Children: 6 number of grandchildren: 13 Communication Needs: None and Corrective Lenses Education Level: college Details: Bachelor's degree Do you need help understanding health information?: Never current occupation: Retired [employer] Pets and animals: No Sexually active: Yes Do you think of yourself as: straight/heterosexual Current gender identity: male What is your relationship status?: How often do you talk on the phone with friends or family?: three or more times per week How often do you get together with friends or relatives?: three or more times per week Do you belong to any clubs or organized social groups?: yes Panel score (0-1 are the most socially isolated patients): 3 What type of physical activity do you participate in: none Cassidy/Restorationist: None Special cassidy needs: No Seatbelt use: always Drive intox or ride w/intox pile driver operator helper: No Working smoke detector in home: Yes Fire extinguisher in home: Yes Carbon monox detector in home: Yes Do you feel safe at home: Yes Do you feel safe in your relationship?: Yes Exam Narrative Exam Narrative: 1.Const: Well-nourished, Well-developed, appearing stated age 2.Eyes: PERRL, no conjunctival injection, and symmetrical lids. 3.ENT: Atraumatic external nose and ears. Moist MM. Neck: Symmetric, trachea midline, No thyromegaly. 4.CVS: +S1/S2, No murmurs or gallops. Peripheral pulses 2+ and equal in all extremities. Brisk capillary refill in all extremities. 5.RESP: Unlabored respiratory effort. Cough, crackles in left lower lung field. No wheezes or rhonchi. 6.GI: Soft, Nontender/Nondistended, No hepatosplenomegaly. No guarding or rebound. No pulsatile abdominal mass 7.MSK: Normocephalic/Atraumatic, Extremities w/o deformity or ttp No cyanosis or clubbing, Normal movement of all extremities 8.Skin: Warm, Dry. No rashes or lesions. 9.Neuro: vice president of instruction II-XII grossly intact. Sensation grossly intact, no focal neurologic deficits. 10.Psych: (AAO) x3. Appropriate mood and affect Course Vital Signs Vital signs: Vital Signs Temperature 37.7 C H 01/04/23 04:42 Pulse 118 H 01/04/23 04:42 Respiratory Rate 27 H 01/04/23 04:42 Blood Pressure 158/99 H 01/04/23 04:42 Pulse Oximetry 93 01/04/23 04:42 Temperature 37.7 C H 01/04/23 04:42 Temperature Source Oral 01/04/23 04:42 Pulse 118 H 01/04/23 04:42 Respiratory Rate 27 H 01/04/23 04:42 Respiratory Effort 01/04/23 04:42 Blood Pressure 158/99 H 01/04/23 04:42 Blood Pressure Position Supine 01/04/23 04:42 Pulse Oximetry 93 01/04/23 04:42 Oxygen Delivery Method Room Air 01/04/23 04:42 Oxygen Flow Rate 0 01/04/23 04:42 Pain Level 1 01/04/23 04:42 POCUS Exam (ED) Limited Thoracic Lung Exam DATE OF EXAM: 01/04/23 TIME OF EXAM: 06:28 PROVIDER THAT PERFORMED THE STUDY: Tylor Santiago IS THIS A REPEAT EXAM DURING THIS ENCOUNTER: No REASON FOR EXAM: Pneumonia VISUALIZED STRUCTURES: right lateral, left lateral, right posterior and left posterior PERTINENT FINDINGS/IMPRESSION: B-lines/left side and Pneumonia Exam complete
--- NOTE | 2023-01-04 05:00 | DI.RAD_ITS ---
Exam(s) XR PORTABLE CHEST AP EXAM: XR PORTABLE CHEST AP CLINICAL HISTORY: cough, fever, r/o pneumonia TECHNIQUE: 2D digital imaging was performed of the chest. One image was obtained. An AP view was ob tained. COMPARISON: CR XR CHEST 2V PA LATERAL from 06/20/2019 FINDINGS: MEDIASTINUM: Normal. HEART: Normal. PULMONARY VASCULATURE: Normal. LUNGS: Clear. PLEURAL SPACE: No pleural effusion or pneumothorax. BONE:Within normal limits for the patient's age. OTHER FINDINGS:Normal. IMPRESSION: No acute pulmonary findings. DATA REPOSITORY: RADIATION DOSE DELIVERED:
[2023-01-04 05:08] LABS: Abs Immature Grans 0.08 10^3/uL (0.0-0.06); Absolute Lymphocyte Count 0.78 10^3/uL (1.2-3.4); Basophils % 0.3; Eosinophils % 2.9; HCT 41.8 % (40.0-50.0); HGB 13.9 g/dL (13.5-17.5); Immature Grans % 0.5; Lymphocytes % 5.1; MCH 32.1 pg (27.0-33.0); MCHC 33.3 % (32.0-36.0); MCV 97 fL (80-95); MPV 10.2 fL (8.0-11.0); Monocytes % 7.2; Platelet Count 234 10^3/uL (130-400); RBC 4.33 10^6/uL (4.36-5.78); RDW 12.9 % (11.8-14.1); RDW-SD 46.1 fL; WBC 15.35 10^3/uL (4.4-10.8)
[2023-01-04 05:11] LABS: Absolute Basophil Count 0.05 10^3/uL (0.0-0.2); Absolute Eosinophil Count 0.45 10^3/uL (0.0-0.7); Absolute Monocyte Count 1.11 10^3/uL (0.1-0.8); Absolute Neutrophil Count 12.89 10^3/uL (1.2-6.7)
[2023-01-04 05:12] LABS: BE (Venous) 1 mmol/L (-2-3); HCO3 (Venous) 27 mmol/L (23-28); O2 Sat (Venous) 45 %; TCO2 (Venous) 24 mmol/L (24-29); pCO2 (Venous) 47 mmHg (41-51); pH (Venous) 7.36 (7.31-7.41); pO2 (Venous) 26 mmHg
[2023-01-04] MEDS: ACETAMINOPHEN 1,000 MG/100 ML BTL 400 MG IVPB (05:12)
[2023-01-04 05:15] LABS: Lactate 2.6 mmol/L (0.6-1.4)
[2023-01-04 05:30] LABS: INR 1.6 (0.9-1.1); PTT Activated 45.2 sec (21.0-27.5); Prothrombin Time 15.5 sec (9.3-11.0)
[2023-01-04] MEDS: Normal Saline 500 ML IV ×2 (05:35→06:35)
[2023-01-04] MEDS: levoFLOXacin 750 MG/150 ML BAG 100 MG IVPB (05:36)
[2023-01-04 05:37] LABS: ALT 20 U/L (16-63); AST 15 U/L (15-37); Albumin 3.6 g/dL (3.4-5.0); Alkaline Phosphatase 83 U/L (46-116); Anion Gap 10.9 mmol/L (3-11); BUN 14 mg/dL (7-18); Bilirubin, Total 1.4 mg/dL (0.2-1.0); CO2 27.1 mmol/L (21.0-32.0); CREATININE 0.9 mg/dL (0.70-1.30); Calcium 8.9 mg/dL (8.5-10.1); Chloride 105 mmol/L (98-107); Estimated GFR 87.96 (mL/min/1.73m2); Glucose 135 mg/dL (74-106); NT-proBNP 1105 pg/mL (<300); Potassium 3.9 mmol/L (3.5-5.1); Sodium 143 mmol/L (136-145); Total Protein 7.2 g/dL (6.4-8.2); Troponin I < 50 ng/L (<or=60)
--- NOTE | 2023-01-04 05:48 | DI.VRAD_ITS ---
PROCEDURE INFORMATION: Exam: XR Chest Exam date and time: 01/04/2023 4:53 AM Age: 77 years old Clinical indication: Cough and fever; Patient HX: Cough, fever, R/O pneumonia; Additional info: HX of afib/ablation TECHNIQUE: Imaging protocol: Radiologic exam of the chest. Views: 1 view. COMPARISON: CR XR CHEST 2V PA LATERAL 06/20/2019 2:50 PM FINDINGS: Lungs: The lung parenchyma is clear. Pleural spaces: No pneumothorax. No pleural effusion. Heart/Mediastinum: The cardiomediastinal silhouette is within normal limits. Bones/joints: Unremarkable. IMPRESSION: No acute cardiopulmonary abnormality. Dictated and Authenticated by: Juaquin Vazquez MD. Ordering:YONY Snider MD
[2023-01-04 05:57] LABS: COVID-19 PCR Negative (Negative); Influenza A PCR Negative (Negative); Influenza B PCR Negative (Negative); RSV PCR Negative (Negative)
[2023-01-04 06:03] LABS: Source Nasopharynx
[2023-01-04 06:16] LABS: Bilirubin Negative (Negative); Blood Moderate (Negative); Clarity Sl Cloudy (Clear); Glucose Negative (Negative); Ketones 15 mg/dL (Negative); Leukocyte Esterase Moderate (Negative); Nitrite Negative (Negative); Specific Gravity >= 1.030 (1.005-1.025); Urobilinogen 0.2 EU/dL (Up TO 0.2); pH 5.5 (5-8)
[2023-01-04 06:28] LABS: Lactate 1.7 mmol/L (0.6-1.4)
[2023-01-04 06:30] LABS: Bacteria Few HPF (Negative); C & S Indicated? Yes; Casts Negative LPF (Negative); Crystals Negative HPF (Negative); Epithelial Cells Rare HPF (Negative); Mucus Trace (Negative)
--- NOTE | 2023-01-04 07:07 | NUR.NOTE ---
Nursing Note:Report given to day shift nurse. All questions answered.
[2023-01-04] MEDS: levoFLOXacin 500 MG TAB (07:23)
[2023-01-04] MEDS: levoFLOXacin 250 MG TAB (07:24)
== END 2023-01-04 07:36 | disposition home or self-care (01) ==
PROVIDERS: Emergency Provider Student in an Organized Health Care Education/Training Program; PCP Family Medicine
DX: J18.9 Pneumonia, unspecified organism (principal); N39.0 Urinary tract infection, site not specified; E11.9 Type 2 diabetes mellitus without complications; I48.91 Unspecified atrial fibrillation; I10 Essential (primary) hypertension; E78.00 Pure hypercholesterolemia, unspecified; D72.829 Elevated white blood cell count, unspecified; R79.89 Other specified abnormal findings of blood chemistry; Z79.01 Long term (current) use of anticoagulants; Z20.822 Contact with and (suspected) exposure to COVID-19; R07.89 Other chest pain; R06.02 Shortness of breath
CPT/HCPCS: 36415; 76604; 80053; 82805; 87040; 87077; 87637; 93005; 96361; 96365; 96375; 99284; 99285; 71045; 81003; 81015; 83605; 83880; 84484; 85025; 85610; 85730; 87086; 87186; 93010; J0131; J1956

== ENCOUNTER 2023-01-14 08:10 | Emergency (ER) | payer MEDICARE, SELFPAY ==
[2023-01-14] VITALS (97 sets, daily range): BP systolic 97–161; BP diastolic 66–137; PULSE 64–170; RESP 13–28; TEMP 36.3; O2SAT 85–99
--- NOTE | 2023-01-14 08:15 | RT.EKG_ITS ---
APPROVED REPORT Exam: Resting ECG Reason for Exam: sob Patient Location: E HR:162 bpm ECG Measurements Heart Rate 162 AXIS MA [id number] P [id number] QRSd 73 QRS 76 QT 296 T 256 QTc 474 Conclusion Atrial fibrillation with rapid V-rate...A-rate 461 Repolarization abnormality, prob rate related...ST dep, T neg, tachycardia Atrial fibrillation with rapid ventricular response at a rate of 162. Normal axis. No ST segment ab normalities. No acute injury pattern. I have reviewed and interpreted ECG and agree with software generated interpretation.
[2023-01-14] MEDS: Metoprolol CR 50 MG TABCR 75 MG PO ×2 (08:45→14:58)
--- NOTE | 2023-01-14 08:45 | W.ED.GENAD ---
Discharge Plan Disposition Patient Disposition: Transfer-Acute Inpatient Care Specific Acute Inpt Facility: Other Discharge Details Chief Complaint: [facility]Medical Clinical Impression: Parapneumonic effusion Primary Care Provider: Camacho Barrera ED Provider: Micheal Prado Home Meds and New Rx's Prescriptions: No Action (DME) blood-glucose meter Misc See Rx Instructions .ROUTE .MEDSUPPLY Qty: 1 0RF Rx Instructions: As directed to check blood glucose. No insulin. Dispense covered brand. (DME) Blood Glucose Test Strip See Rx Instructions .ROUTE .MEDSUPPLY Qty: 100 3RF Rx Instructions: As directed to check blood glucose daily. No insulin. Dispense covered brand. (DME) lancets Misc See Rx Instructions .ROUTE .MEDSUPPLY Qty: 100 3RF Rx Instructions: As directed to check blood glucose daily. No insulin. Dispense covered brand. rivaroxaban 20 mg tablet 20 mg PO DAILY Qty: 90 3RF Hold Instructions: Resume on 05/02/22. Rx Instructions: must administer with evening meal timolol maleate 0.5 % gel forming solution 1 drp ophthalmic (eye) DAILY clotrimazole 1 % cream 1 applic topical BID Qty: 45 3RF lisinopril 20 mg tablet 20 mg PO DAILY Qty: 90 3RF atorvastatin 10 mg tablet 10 mg PO DAILY Qty: 90 3RF metoprolol succinate 100 mg tablet extended release 24 hr 75 mg PO BID levofloxacin 750 mg tablet 750 mg PO DAILY Qty: 7 0RF Medical Decision Making This is an elderly tachycardic but normotensive and not febrile 77-year-old anticoagulated male on rivaroxaban in the setting of atrial fibrillation now with lightheadedness and shortness of breath and A-fib with RVR. He has not taken his home metoprolol tartrate so we will order this at 75 mg now and also order him an IV dose of 5 mg. I am concerned about the possibility of aortic dissection given that he recently completed a course of levofloxacin and has a history of aortic abdominal aneurysm so we will proceed to CT chest to assess for dissection. He is having no chest pain so we will defer antibiotics at this point time. Given his shortness of breath and recent pneumonia we will swab for COVID. I am not concerned for sepsis given lack of fevers and lack of hypotension so well defer blood cultures and lactate at this point in time. He has a soft nontender abdomen so I am not concerned for intra-abdominal infection. Will reassess following imaging and metoprolol. 11:45 AM Patient had no B-lines on limited bedside echocardiogram. It did appear that he had a decrease in EF compared to prior formal cardiology reports in the [facility] medical system so we will order formal echocardiogram. 12:20 PM I received a call from radiology and the patient was found to have a lower lobe infiltrate with parapneumonic effusion. Given that he is failing outpatient management will order ceftriaxone & doxycycline after blood cultures and a lactate. We will touch base with hospitalist request for hospitalization. 1:30 PM Patient's was accepted to [facility] by Dr. Diaz secondary to local limitations and capacity. Will order repeat ECG given that rates have improved. 2:52 PM Patient is still tachycardic into the 130s in atrial fibrillation with rapid ventricular response for which I ordered him his metoprolol succinate 75 mg. His blood pressures have remained stable. He is still pending transport. 4:20 PM Patient reported feeling improved. He was curious about the possibility of going home and waiting to come back till tomorrow. I advised given that he failed outpatient oral antibiotics and was having persistent shortness of breath and A-fib with RVR reason for plan for hospitalization. His formal echocardiogram returned with a normal EF. As result will provide 500 cc of fluid in addition to the 250 cc bolus that the patient had received initially. We will also provide him with a regular diet while he awaits transport. 5:10 PM Patient's son had arrived in the emergency department. Patient's heart rate was ranging between the 130s in the 150s. He was tolerating his dinner. We will treat with additional 5 mg of metoprolol and provided additional 500 cc bolus. Given the patient's pneumonia we will defer definitive rate control at this point time as his A-fib with RVR is likely secondary to his pneumonia and his manifestation of tachycardia. At the time of transfer patient's heart rate was 126 bpm and his blood pressure was 122/89. HPI General Date/Time Provider Initiated Documentation: 01/14/23 08:29. HPI Narrative: This is a 77-year-old male with a history of atrial fibrillation on rivaroxaban and metoprolol in the emergency department in the setting of lightheadedness and shortness of breath. Patient reports that he has recently finished antibiotics for pneumonia and chart review indicates that he was on levofloxacin dizziness. He began feeling lightheadedness dizziness and short of breath yesterday. It was intermittent throughout the day. He woke up at 3 AM and it was worse. He had trouble falling back to sleep. He has not taken his 75 mg of metoprolol tartrate this morning. He says that normally his heart rates run between 50 and 150 bpm but today admits increased to 150 bpm. He has had no nausea vomiting dysuria nor frequency. He has not taken any falls. Related Data Home Medications Medication Instructions Recorded Confirmed blood sugar diagnostic (Blood #100 ea 12/04/20 01/10/23 Glucose Test strips) blood-glucose meter #1 ea 12/04/20 01/10/23 lancets #100 ea 12/04/20 01/10/23 rivaroxaban 20 mg tablet 20 mg PO DAILY #90 tabs 01/08/22 01/14/23 lisinopril 20 mg tablet 20 mg PO DAILY #90 tabs 02/14/22 01/14/23 clotrimazole 1 % topical cream 1 applic topical BID #45 grams 05/29/22 01/14/23 timolol maleate 0.5 % eye gel 1 drp ophthalmic (eye) DAILY 06/21/22 01/14/23 forming solution atorvastatin 10 mg tablet 10 mg PO DAILY #90 tab-caps 10/10/22 01/14/23 levofloxacin 750 mg tablet 750 mg PO DAILY #7 tabs 01/04/23 01/14/23 metoprolol succinate 100 mg 75 mg PO BID 01/14/23 01/14/23 tablet,extended release 24 hr Previous Rx's Medication Instructions Recorded blood sugar diagnostic (Blood #100 ea 12/04/20 Glucose Test strips) blood-glucose meter #1 ea 12/04/20 lancets #100 ea 12/04/20 rivaroxaban 20 mg tablet 20 mg PO DAILY #90 tabs 01/08/22 lisinopril 20 mg tablet 20 mg PO DAILY #90 tabs 02/14/22 clotrimazole 1 % topical cream 1 applic topical BID #45 grams 05/29/22 atorvastatin 10 mg tablet 10 mg PO DAILY #90 tab-caps 10/10/22 levofloxacin 750 mg tablet 750 mg PO DAILY #7 tabs 01/04/23 Allergies Allergy/AdvReac Type Severity Reaction Status Date / Time venom-honey bee Allergy Severe HIVES Verified 01/14/23 08:27 [bee venom (honey bee)] TACHYCARDIA Penicillins Allergy Intermediate HIVES Verified 01/14/23 08:27 levetiracetam [From [facility]] AdvReac Severe leukopenia Verified 01/14/23 08:27 prednisone AdvReac Severe rectal Verified 01/14/23 08:27 bleeding and diarrhea aspirin AdvReac Intermediate Nosebleeds Verified 01/14/23 08:27 ceftriaxone AdvReac Intermediate Leukopenia Verified 01/14/23 08:27 simvastatin AdvReac Intermediate LEG PAIN Verified 01/14/23 08:27 DR MCLEOD SHRIMP Allergy Intermediate HIVES , Uncoded 01/14/23 08:27 NAUSEA General Stated Complaint: GenMedical PALOMA: 2 PFSH All Active Problems (Updated 01/14/23 @ 19:26 by Micheal Prado MD) Parapneumonic effusion (Acute) Community acquired pneumonia (Acute) Acute UTI (Acute) Beat, premature ventricular (Acute ~08/2022) 09/11/22 Cardiology Atrial fibrillation, persistent (Acute ~08/2022) 08/28/22 Cardiology 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 (Acute) Syncope (Chronic) Prolonged QT interval (Acute) Atrial tachycardia determined by electrocardiography (Acute) Internal hemorrhoids (Acute) Diabetes mellitus type II, controlled (Chronic) Blood glucose abnormal (Acute 11/03/14) Trigger middle finger of right hand (Acute 04/25/16) Abdominal aortic aneurysm (AAA) 3.0 cm to 5.5 cm in diameter in male (Chronic) Found in October 2018, needs to be rechecked every 3 years Pure hypercholesterolemia (Chronic 01/31/12) goal LDL<70 Metabolic syndrome X (Chronic 02/15/13) goal 215# 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 s/p stenting x 5 2010 or 2011 at [facility] b. presenting symptom was primarily fatigue Hypertension (Chronic) H/O: urinary stone (Chronic) Hx of colonic polyps (Chronic) Benign prostatic hypertrophy (Chronic) Atrial fibrillation (Chronic) 10/09/20 [facility] Cardiology Surgical History R small trigger finger release (05/28/16) [place] S/P ablation of atrial fibrillation (10/2018) steriotactic brain bx (01/27/15) [facility] bx brain abscess Family History Mother , HF at age 89. Heart disease Father , stroke HBP at age 90. Essential hypertension Brother , heart at age 82. No problems noted. Brother No problems noted. 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 Pets and animals: No Sexually active: Yes Do you think of yourself as: straight/heterosexual Current gender identity: male What is your relationship status?: How often do you talk on the phone with friends or family?: three or more times per week How often do you get together with friends or relatives?: three or more times per week Do you belong to any clubs or organized social groups?: yes Panel score (0-1 are the most socially isolated patients): 3 What type of physical activity do you participate in: none Cassidy/Christianity: None Special cassidy needs: No Seatbelt use: always Drive intox or ride w/intox transit mixer driver: No Working smoke detector in home: Yes Fire extinguisher in home: Yes Carbon monox detector in home: Yes Do you feel safe at home: Yes Do you feel safe in your relationship?: Yes Exam Narrative Exam Narrative: General: Pale elderly-appearing in no acute distress speaking in complete sentences. lying supine in chair with eyes closed. Head: Normocephalic, atraumatic Ear, nose, mouth, throat: Grossly normal inspection. Normal voice, handling secretions normally. Neck: Trachea midline. Cardiovascular: Well-perfused distal extremities. No lower extremity edema. Rapid irregular irregular heart rate. Respiratory: Nonlabored respiration. Clear breath sounds. Gastrointestinal: Nondistended abdomen. Musculoskeletal: No edema. Moving all 4 extremities spontaneously. Skin: Normal for age and race, grossly normal temperature and turgor. No acute rash. Neurologic: Alert and appropriate, no apparent acute deficits. Psychiatric: Mood and manner are appropriate. Grooming and personal hygiene are appropriate. Course Vital Signs Vital signs: Vital Signs Temperature 36.3 C L 01/14/23 08:18 Pulse 85 01/14/23 08:18 Respiratory Rate 20 01/14/23 08:18 Blood Pressure 144/88 H 01/14/23 08:18 Pulse Oximetry 98 01/14/23 08:18 Temperature 36.3 C L 01/14/23 08:18 Temperature Source Tympanic 01/14/23 08:18 Pulse 85 01/14/23 08:18 Respiratory Rate 20 01/14/23 08:18 Respiratory Effort Short of Breath 01/14/23 08:23 Blood Pressure 144/88 H 01/14/23 08:18 Blood Pressure Position Sitting 01/14/23 08:18 Pulse Oximetry 98 01/14/23 08:18 Pain Level 0 01/14/23 08:18 Critical Care Time Critical Care Time Total Critical Care Time: 30 Attestation: I attest that I performed 30 minutes of critical care on this patient atrial fibrillation with rapid ventricular response requiring vasoactive substances for emergent rate control. POCUS Exam (ED) Limited Cardiac Exam DATE OF EXAM: 01/14/23 TIME OF EXAM: 11:45 PROVIDER THAT PERFORMED THE STUDY: Micheal Prado REASON FOR EXAM: Dyspnea and Other indication: Shortness of breath VISUALIZED STRUCTURES: Left ventricle and LVOT INCIDENTAL FINDINGS: Radiographs [employer]tronic less than 4 cm, moderate squeeze, no significant pericardial effusion, RV less than elevated. No recorded images. Exam complete PAWSS Have you Been Recently Intoxicated or Drunk Within the Last 30 days?: No Have you Ever Experienced Previous Episodes of Alcohol Withdrawal?: No Have you ever Experienced Withdrawal Seizures?: No Have you ever Experienced Delirium Tremens(DT)s?: No Have you ever undergone Alcohol Rehabilitation Treatment (i.e, inpt ot outpatient treatment programs)?: No Have you ever Experienced Blackouts?: No Have you ever Combined Alcohol with other Downers within the last 90 days?: No Have you ever Combined Alcohol with any other Substance of Abuse during the last 90 days?: No Positive Blood Alcohol level on Presentation? [PCS.BAL]: No Evidence of Increased Autonomic Activity (i.e. HR>120, tremor, sweating, agitation, nausea)?: No Result: 0
[2023-01-14 09:00] LABS: Abs Immature Grans 0.06 10^3/uL (0.0-0.06); Absolute Basophil Count 0.06 10^3/uL (0.0-0.2); Absolute Lymphocyte Count 1.24 10^3/uL (1.2-3.4); Absolute Monocyte Count 0.79 10^3/uL (0.1-0.8); Basophils % 0.5; HCT 39.3 % (40.0-50.0); Immature Grans % 0.5; Lymphocytes % 9.9; MCH 31.9 pg (27.0-33.0); MCHC 33.1 % (32.0-36.0); MCV 97 fL (80-95); MPV 10.4 fL (8.0-11.0); Monocytes % 6.3; Neutrophils % 74.8; Platelet Count 409 10^3/uL (130-400); RBC 4.07 10^6/uL (4.36-5.78); RDW 12.9 % (11.8-14.1); RDW-SD 45.5 fL; WBC 12.52 10^3/uL (4.4-10.8)
[2023-01-14] MEDS: Metoprolol 5 MG/5 ML VIAL IVP ×2 (09:01→11:45)
[2023-01-14 09:06] LABS: Absolute Neutrophil Count 9.36 10^3/uL (1.2-6.7)
[2023-01-14 09:17] LABS: ALT 19 U/L (16-63); AST 14 U/L (15-37); Albumin 3.2 g/dL (3.4-5.0); Alkaline Phosphatase 80 U/L (46-116); Anion Gap 7.7 mmol/L (3-11); BUN 17 mg/dL (7-18); Bilirubin, Total 0.8 mg/dL (0.2-1.0); CO2 28.3 mmol/L (21.0-32.0); CREATININE 0.9 mg/dL (0.70-1.30); Calcium 9.6 mg/dL (8.5-10.1); Chloride 104 mmol/L (98-107); Estimated GFR 87.96 (mL/min/1.73m2); Glucose 154 mg/dL (74-106); Potassium 4.1 mmol/L (3.5-5.1); Sodium 140 mmol/L (136-145); Total Protein 7.1 g/dL (6.4-8.2)
[2023-01-14 10:31] LABS: NT-proBNP 2745 pg/mL (<300)
--- NOTE | 2023-01-14 10:43 | NUR.NOTE ---
Patient resting, given a drink of water.
[2023-01-14] MEDS: Normal Saline - Diluent 50 ML VIAL IJ (11:03)
[2023-01-14] MEDS: Omnipaque 350 MG/ML 100 ML BTL IJ (11:04)
--- NOTE | 2023-01-14 11:05 | DI.CT_ITS ---
Exam(s) CT THORAX CTA EXAM: CT THORAX CTA CLINICAL HISTORY: Shortness of breath history of aortic aneurysm. TECHNIQUE: Imaging Protocol: CT angiography of the chest was performed using pulmonary embolus ebony col. Multi planar reconstructions were performed. CONTRAST MATERIAL: Intravenous: Omnipaque 350 Contrast volume: 100 cc COMPARISON: CT CT ABDOMEN PELVIS WO from 04/19/2022 FINDINGS: CHEST: PULMONARY ARTERIES: There are no intraluminal filling defects to suggest acute pulmonary emboli. LUNGS: There is significant area of infiltrate in the left lower lobe. Also small left pleural effus ion. There is a small right pleural effusion also noted. Mild increased markings in the right lung base noted but without confluent infiltrates on the right side. No ominous pulmonary nodule seen. N o significant focal findings in the trachea and mainstem bronchi.. MEDIASTINUM: No prominent hilar nor mediastinal adenopathy. Partially visualized thyroid unremarkabl e. CARDIAC: Cardiomegaly. No pericardial effusion. Enlarged left atrium. Coronary artery calcificatio n. Diameter of the ascending thoracic aorta is prominent, measuring 4.3 cm. There is no evidence of aortic dissection. Diameter of the mid aortic arch is 2.9 cm. Diameter of proximal descending thor acic aorta also enlarged at 3.3 cm. Diameter of mid-distal thoracic aorta is 2.7 cm. No dissection. There is no significant shift of the interventricular septum. PARTIALLY VISUALIZED UPPERMOST ABDOMEN: No obvious findings OSSEOUS: No acute fractures. No significant osseous lesions.. IMPRESSION: 1. There is significant area of infiltrate in the left lower lobe involving posterior and lateral bas al segments. There is also an ipsilateral left pleural oirbamei-htojw-awcotgdy size. Slightly small er right pleural effusion noted. No confluent infiltrates in the right lung.. 2. Cardiomegaly. Enlarged thoracic aorta with maximum diameter 4.3 cm in the ascending aorta. No ev idence of aortic dissection. Cardiomegaly. No pericardial effusion. 3. No evidence of acute pulmonary emboli. Called by myself to ER physician. RADIATION DOSE DELIVERED: 566mGy.cm Total DLP DATA REPOSITORY: All CT scans at this facility are submitted to the National Radiology Data Registry (NRDR) Dose Index Registry (DIR) with the [employer] (ACR). RADIATION OPTIMIZATION: All CT scans at this facility use at least one of these dose optimization te chniques: automated exposure control; mA and/or kV adjustment per patient size (includes targeted exa ms where dose is matched to clinical indication); or iterative reconstruction.
--- NOTE | 2023-01-14 11:30 | DI.US_ITS ---
APPROVED REPORT EXAM: Comprehensive 2D, Doppler, and color-flow Echocardiogram Patient Location: ER Room/Bed: 4 Grinding Wheel Inspector: Ana Maria Hatfield RDCS (AE) Indications: SOB, A Fib RVR Other Information Study Quality: Fair. Technically limited study due to body habitus, inability to position patient exa m done beside er. Conclusion Normal left ventricular wall thickness and chamber size. Estimated ejection fraction is 55 to 60%. There were no segmental wall motion abnormalities Grossly normal right ventricular size and function Both atria are mildly dilated Aortic valve is sclerotic with trace regurgitation Mitral annular calcification, mild to moderate mitral regurgitation Normal tricuspid valve with moderate to severe regurgitation. Estimated right ventricular systolic p ressure is 39 mmHg Dilated ascending aorta Patient was in atrial fibrillation with an uncontrolled rate throughout the study with brye-qs-mlti v ariation Wall motion Left Ventricle The left ventricle is normal size. The overall left ventricular systolic function appears normal. T here is normal left ventricular wall thickness. LVEF is 55-60%. Right Ventricle Right ventricle is grossly normal in size. Right ventricular systolic function is grossly normal. The RVSP is 39.2mmHg. Atria Left atrium is mildly dilated. Right atrium is mildly dilated. The interatrial septum is intact with no evidence for an atrial septal defect. Aortic Valve The Aortic valve is sclerotic. Number of aortic valve leaflets could not be assessed. There is no aor tic valvular stenosis. Trace aortic regurgitation. Mitral Valve Moderate mitral annular calcification. No evidence of mitral valve stenosis. Mild to moderate mitral regurgitation. Tricuspid Valve The tricuspid valve is normal in structure. There is no tricuspid valve stenosis. Moderate to severe tricuspid regurgitation. Pulmonic Valve The pulmonary valve is normal in structure. There is no pulmonic valvular stenosis. Mild pulmonic reg urgitation. Great Vessels The aortic root is normal in size. The ascending aorta is mildly dilated. Aortic arch is not well vis ualized. The IVC collapses <50% with inspiration. Pericardium There is no pericardial effusion. 2D Dimensions IVSD d PLAX 1.27 cm M: 0.6-1.2 LV Vol A2C d MOD 99.7 mL LVPW d PLAX 1.20 cm M: 0.6 - 1.2 LV Vol A4C d MOD 96.0 mL LVID d PLAX 5.80 cm M: 4.2 - 5.8 LA vol/ BSA A2C s A-L 44.5 mL/m2 LVDs 4.25 cm M: 2.5 - 4.0 LA vol/ BSA A4C s A-L 37.4 mL/m2 Ao Root d 3.28 cm M: 3.1 - 3.7 LA Vol/ BSA Biplane s A-L 42.5 mL/m2 Ao Asc Diam d 3.94 cm M: 2.6 - 3.4 LA Area A4C s MOD 25.53 cm2 LV EF Teichholz 50.8 % LA Area A2C s MOD 28.96 cm2 LVEF (Champagne's) 51.41 % M: 52 - 72 LV EF A4C MOD 52.3 % LV Volume 72.11 mL M: 62 - 150 LV EF A2C MOD 50.5 % LV Volume Index 32.48 mL/m2 M: 34 - 74 LV EF Biplane MOD 51.4 % LV Vol Biplane MOD 99.4 mL SV 51.11 mL FS 26.25 % SV Index 23.03 mL/m2 LV Diastology MV E Vmax 1.51 (0.4-1.3 m/s) Aortic Valve LVOT Area 3.06 cm2 AoV Area Vmax 2.44 cm2 LVOT Vmax 0.84 m/s AoV Area/ BSA (Vmax) 1.10 cm2/m2 LVOT Mean Valdemar. 0.51 m/s PERRY Mean Valdemar. 2.22 cm2 LVOT Peak Grad 2.8 mmHg PERRY Mean Valdemar. Index 1.00 cm2/m2 LVOT Mean Grad 1.3 mmHg LVOT VTI 0.156 m LVOT Diam s 1.95 cm AoV Vmax 1.06 m/s Velocity Ratio 0.79 AoV Mean Valdemar. 0.71 m/s AoV Peak Grad 4.5 mmHg LVOT SV 47.53 mL AoV Mean Grad 2.4 mmHg AoV VTI 0.145 m AoV Area VTI 3.28 cm2 AoV Area/ BSA (VTI) 1.48 cm/m2 Mitral Valve MV DT 307 (160-240 msec) MV PHT 89 msec MV Area PHT 2.47 cm2 MV VTI 0.362 m MV Area VTI 1.31 (4.0-6.0 cm2) Pulmonary Valve PV Vmax 0.79 (0.5-1.5 m/s) RVOT Peak Gr. 1.69 mmHg PV Peak Grad 2.5 mmHg RVOT Mean Gr. 1.00 mmHg PV Mean Grad 1.2 mmHg RVOT VTI 0.113 m PV VTI 0.107 m RVOT Vmax 0.65 m/s Tricuspid Valve TR Peak Grad 31.1 mmHg TR Vmax 2.79 m/s RA Pressure 8.00 mmHg RVSP (TR) 39.2 mmHg
[2023-01-14] MEDS: cefTRIAXone 2 GM/50 ML BAG IVPB (12:28)
[2023-01-14] MEDS: Doxycycline Hyclate 100 MG CAP PO (12:28)
[2023-01-14] MEDS: Normal Saline 250 ML IV (12:29)
--- NOTE | 2023-01-14 13:30 | RT.EKG_ITS ---
APPROVED REPORT Exam: Resting ECG Reason for Exam: sob Patient Location: E HR:124 bpm ECG Measurements Heart Rate 124 [place] [id number] P [id number] QRSd 80 QRS 72 QT 344 T -43 QTc 495 Conclusion Atrial fibrillation...V-rate 80-152, irreg A-activity Low voltage, precordial leads...precordial leads <1.0mV Narrow complex atrial fibrillation with rapid ventricular response at a rate of 124. No ST segment a bnormalities. No T wave inversions. No acute injury pattern. I have reviewed and interpreted ECG and agree with software generated interpretation.
[2023-01-14 13:41] LABS: Lactate 1.8 mmol/L (0.6-1.4)
[2023-01-14] MEDS: Normal Saline 250 ML 500 ML IV ×2 (16:26→17:07)
--- NOTE | 2023-01-14 16:52 | NUR.NOTE ---
Nursing Note: Gave nurse to nurse report to Avelina at [facility].
[2023-01-14] MEDS: Atorvastatin 10 MG TAB PO (17:07)
[2023-01-14] MEDS: Rivaroxaban 10 MG TABLET 20 MG PO (17:07)
[2023-01-14] MEDS: Metoprolol 5 MG/5 ML VIAL (17:09)
== END 2023-01-14 18:07 | disposition short-term general hospital (02) ==
PROVIDERS: Emergency Provider Emergency Medicine; PCP Family Medicine
DX: J90 Pleural effusion, not elsewhere classified (principal); I48.91 Unspecified atrial fibrillation; E11.9 Type 2 diabetes mellitus without complications; I10 Essential (primary) hypertension; Z79.01 Long term (current) use of anticoagulants; R06.02 Shortness of breath
CPT/HCPCS: 71275; 80053; 87040; 93005; 93306; 96361; 96365; 96372; 96375; 96376; 99291; 83605; 83735; 83880; 85025; 93010; J3490

== ENCOUNTER 2023-03-31 10:50 | Outpatient (REF) | payer MEDICARE, SELFPAY ==
[2023-03-31 17:59] LABS: COVID-19 PCR Negative (Negative); Influenza A PCR Negative (Negative); Influenza B PCR Negative (Negative); RSV PCR Negative (Negative)
[2023-03-31 18:36] LABS: Source Nasopharynx
== END 2023-03-31 10:51 | disposition home or self-care (01) ==
LOC: LBN 10:50
PROVIDERS: Nurse Practitioner; PCP Family Medicine; Visit Provider Family Medicine
DX: R06.2 Wheezing (principal); R05.8 Other specified cough; Z20.822 Contact with and (suspected) exposure to COVID-19
CPT/HCPCS: 87637

== ENCOUNTER 2023-03-31 13:51 | Outpatient (CLI) | payer MEDICARE, SELFPAY ==
--- NOTE | 2023-03-31 10:30 | DI.RAD_ITS ---
Exam(s) XR CHEST 2V PA LATERAL EXAM: XR CHEST 2V PA LATERAL CLINICAL HISTORY: SOB, cough, atrial fib, R05.9, R06.02, I48.91 TECHNIQUE: 2D digital imaging was performed of the chest. Two images were obtained. PA and lateral views were obtained. COMPARISON: CR CHEST 2 VIEWS PA,LAT from 06/10/2011 CR CHEST 2 VIEWS PA,LAT from 07/24/2018 CR XR CHEST 2V PA LATERAL from 06/20/2019 FINDINGS: MEDIASTINUM: There is no change in appearance of the mediastinum and hilum compared to the prior exam ination. HEART: Normal. PULMONARY VASCULATURE: Normal. LUNGS: Clear. PLEURAL SPACE: No pleural effusion or pneumothorax. BONE:Within normal limits for the patient's age. There is a pectus excavatum deformity. OTHER FINDINGS:Normal. IMPRESSION: No acute pulmonary findings. DATA REPOSITORY: RADIATION DOSE DELIVERED:
== END 2023-03-31 14:11 ==
LOC: DI 13:52
PROVIDERS: PCP Family Medicine; Visit Provider Nurse Practitioner
DX: I48.91 Unspecified atrial fibrillation (principal); R05.9 Cough, unspecified; R06.02 Shortness of breath
CPT/HCPCS: 71046

== ENCOUNTER 2023-05-06 08:28 | Observation (INO) | payer MEDICARE, SELFPAY ==
[2023-05-06] VITALS (71 sets, daily range): BP systolic 109–179; BP diastolic 65–135; PULSE 46–197; RESP 14–31; TEMP 36.4–36.7; O2SAT 93–97
--- NOTE | 2023-05-06 08:15 | RT.EKG_ITS ---
APPROVED REPORT Exam: Resting ECG Reason for Exam: SOB Patient Location: E HR:141 bpm ECG Measurements Heart Rate 141 AXIS NM 129 P 76 QRSd 81 QRS 101 QT 337 T -68 QTc 518 Conclusion atrial fibrillation with rapid ventricular response to rate of 141. Otherwise unremarkable ekg with normal axis. Consistent with prior ekgs. No ST-T wave changes
--- NOTE | 2023-05-06 08:30 | DI.RAD_ITS ---
Exam(s) XR PORTABLE CHEST AP EXAM: XR PORTABLE CHEST AP CLINICAL HISTORY: shortness of breath TECHNIQUE: 2D digital imaging was performed of the chest. One image was obtained. An AP view was ob tained. COMPARISON: CR,XR XR PORTABLE CHEST AP from 01/04/2023 CR XR CHEST 2V PA LATERAL from 03/31/2023 FINDINGS: MEDIASTINUM: Normal. HEART: Cardiomegaly. PULMONARY VASCULATURE: Pulmonary venous congestion. LUNGS: Prominent interstitial markings in the lungs. No focal consolidating infiltrate. PLEURAL SPACE: No pleural effusion or pneumothorax. BONE:Within normal limits for the patient's age. OTHER FINDINGS:Normal. IMPRESSION: Cardiomegaly and pulmonary venous congestion. No focal consolidating infiltrates. DATA REPOSITORY: RADIATION DOSE DELIVERED:
--- NOTE | 2023-05-06 08:45 | ED.GENADUL_ITS ---
Discharge Plan Disposition Patient Disposition: Admit to [facility] Discharge Details Clinical Impression: Atrial fibrillation with RVR, Atrial fibrillation, persistent, Pulmonary edema cardiac cause Admit Date/Time: 05/06/23 14:21 Admit Provider: Liliana Ewing Attending Provider: Liliana Ewing Primary Care Provider: Camacho Barrera ED Provider: Mirza Tom Discharge Data Discharge Date/Time-TO BE ENTERED AT DEPARTURE: 05/06/23 17:43 Medical Decision Making Patient presenting to the emergency department via EMS for chief complaint of shortness of breath. Patient has a history of A-fib/flutter and states that 2 days ago he had been working outside a little harder and since then he has noted some increased shortness of breath with activity. Patient denies any pain or discomfort, denies swelling of extremities, denies fever chills or other symptoms. Patient does state this morning he started having significant amount of sweating which was similar to when he had a syncopal episode after vaccination. Today he denies any syncopal episode lightheadedness or neurological symptoms. Physical exam shows an adult male with no acute respiratory distress, clear lung sounds, significant regular tachycardia heard on exam, no pedal edema, normal peripheral pulses, vital signs do show tachycardia with rate in 140s, hypertensive, afebrile. Patient states he did not take his metoprolol or atorvastatin this morning as he typically takes his meds around 9 AM. We will plan on checking labs and EKG given patient's significant past medical history of A-fib/flutter, coronary artery disease, diabetes, high cholesterol. Patient does have history of AAA within the 3 to 5.5 cm range that is just being observed. Given that patient does not have any pain or discomfort I have lower suspicion that this is a dissection causing symptoms but will continue to monitor. Pending results we will give patient IV and oral metoprolol. Please see physician interpretation for full interpretation of EKG but upon my review patient is in a flutter with a rate of 141. Reviewed patient's labs and CBC is overall unremarkable, CMP does show slight elevation of BUN at 21, glucose of 127, total bili of 1.3. Troponin is undetectable at this time, BNP is 1596 which is mid range for patient's previous testing of this and all other labs are nondiagnostic. 0930-reassessed patient and patient states that he is improving and feeling better. Monitor shows heart rate now closer to 100s to 120 and blood pressure 127/96 which patient states is his normal. He does have some episodes of return of rapid ventricular response in the 140s or 50s but with quick reduction. We will continue to monitor heart rate to see if patient requires additional metoprolol. Reviewed patient's chest x-ray along with radiologist interpretation that does show some findings to pulmonary congestion suggestive of CHF acute exacerbation secondary to A-fib with RVR but no findings to suggest consolidated infiltrate. We will give patient small dose of furosemide pending second troponin. 1150-repeat EKG did show a flutter with rate of 94 but in evaluating monitor patient has had more increases over 120-30 so did give patient additional 25 mg metoprolol oral. Patient's other vital signs remained stable and patient is overall stating some improvement of symptoms. Reviewed repeat troponin which is nondetectable negative. Reassessed patient and he states improvement of symptoms continues to deny pain and discomfort. Will road test patient has heart rate still is upper 90s low 100s. With ambulation patient returned into the 130s and 140s had no hypoxia and oxygen remained stable but heart rate persisted so 5 mg IV push of metoprolol was ordered. Discussed with patient observation stay with further medication changes as needed. Will discuss case with hospitalist for observation admission. She agreed for to admit patient for observation. Imaging Data Radiologic Study: Attestation: I personally reviewed and interpreted this imaging study as follows: Imaging: X-Ray Radiologist's impression: Exam(s) XR PORTABLE CHEST AP EXAM: XR PORTABLE CHEST AP CLINICAL HISTORY: shortness of breath TECHNIQUE: 2D digital imaging was performed of the chest. One image was obtained. An AP view was obtained. COMPARISON: CR,XR XR PORTABLE CHEST AP from 01/04/2023 CR XR CHEST 2V PA LATERAL from 03/31/2023 FINDINGS: MEDIASTINUM: Normal. HEART: Cardiomegaly. PULMONARY VASCULATURE: Pulmonary venous congestion. LUNGS: Prominent interstitial markings in the lungs. No focal consolidating infiltrate. PLEURAL SPACE: No pleural effusion or pneumothorax. BONE:Within normal limits for the patient's age. OTHER FINDINGS:Normal. IMPRESSION: Cardiomegaly and pulmonary venous congestion. No focal consolidating infiltrates. Lab Data Lab results reviewed: Yes I reviewed the patient's lab results. HPI General Mode of arrival: EMS . Date/Time Provider Initiated Documentation: 05/06/23 08:29 . Limitations to Documentation: no limitations . Information obtained by: patient and RN notes reviewed . History of Present Illness 77 year old M presents to the emergency department with the chief complaint of Shortness of breath rapid heart rate, described as moderate and similar to prior episodes, Patient started experiencing this day(s) (1) and it has been intermittent. No relieving factors improve symptom(s), Other factors that worsen symptoms (Increased activity 2 days ago) . Patient notes no other symptoms.. Patient did receive the following treatments prior to arrival, other (Oxygen) Related Data Home Medications Medication Instructions Recorded Confirmed blood-glucose meter #1 ea 12/04/20 05/06/23 lancets #100 ea 12/04/20 05/06/23 timolol maleate 0.5 % eye gel 1 drp ophthalmic (eye) DAILY 06/21/22 05/06/23 forming solution atorvastatin 10 mg tablet 10 mg PO DAILY #90 tab-caps 10/10/22 05/06/23 blood sugar diagnostic (Blood #100 ea 03/18/23 05/06/23 Glucose Test strips) lisinopril 5 mg tablet 5 mg PO DAILY #90 tabs 03/18/23 05/06/23 metoprolol succinate 200 mg 50 mg PO BID 04/14/23 05/06/23 tablet,extended release 24 hr rivaroxaban 20 mg tablet 20 mg PO DAILY #90 tabs 04/14/23 05/06/23 Previous Rx's Medication Instructions Recorded blood-glucose meter #1 ea 12/04/20 lancets #100 ea 12/04/20 atorvastatin 10 mg tablet 10 mg PO DAILY #90 tab-caps 10/10/22 blood sugar diagnostic (Blood #100 ea 03/18/23 Glucose Test strips) lisinopril 5 mg tablet 5 mg PO DAILY #90 tabs 03/18/23 rivaroxaban 20 mg tablet 20 mg PO DAILY #90 tabs 04/14/23 Allergies Allergy/AdvReac Type Severity Reaction Status Date / Time venom-honey bee Allergy Severe HIVES Verified 05/06/23 08:30 [bee venom (honey bee)] TACHYCARDIA Penicillins Allergy Intermediate HIVES Verified 05/06/23 08:30 levetiracetam [From [facility]] AdvReac Severe leukopenia Verified 05/06/23 08:30 prednisone AdvReac Severe rectal Verified 05/06/23 08:30 bleeding and diarrhea aspirin AdvReac Intermediate Nosebleeds Verified 05/06/23 08:30 ceftriaxone AdvReac Intermediate Leukopenia Verified 05/06/23 08:30 simvastatin AdvReac Intermediate LEG PAIN Verified 05/06/23 08:30 DR MCLEOD SHRIMP Allergy Intermediate HIVES , Uncoded 05/06/23 08:30 NAUSEA General Stated Complaint: RespSymp PALOMA: 3 Review of Systems Constitutional Constitutional: Denies chills, Reports fatigue and Denies fever(s) Cardiovascular Cardiovascular: Reports as per HPI, Reports chest pain, Denies chest pain with activity, Reports diaphoresis, Denies syncope, Denies irregular heart rhythm, Denies leg edema, Denies palpitations, Reports dyspnea and Reports dyspnea on exertion Respiratory Respiratory: Denies hemoptysis, Reports dyspnea and Reports dyspnea on exertion Gastrointestinal Gastrointestinal: Denies abdominal pain, Denies nausea and Denies vomiting Neurologic Neurologic: Denies syncope Psychiatric Psychiatric: Denies anxiety Endocrine Endocrine: Denies cold intolerance, Reports fatigue, Denies heat intolerance and Denies palpitations PFSH All Active Problems (Updated 05/06/23 @ 19:41 by Liliana Ewing MD) Discharge planning issues (Acute) DVT prophylaxis (Acute) Atrial fibrillation with RVR (Acute) Pulmonary edema cardiac cause (Acute) Cough (Acute) Tricuspid regurgitation (Acute) Beat, premature ventricular (Acute ~08/2022) 09/11/22 Cardiology Atrial fibrillation, persistent (Acute ~08/2022) 08/28/22 Cardiology 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 (Acute) Syncope (Chronic) Prolonged QT interval (Acute) Atrial tachycardia determined by electrocardiography (Acute) Internal hemorrhoids (Acute) Diabetes mellitus type II, controlled (Chronic) Blood glucose abnormal (Acute 11/03/14) Trigger middle finger of right hand (Acute 04/25/16) Abdominal aortic aneurysm (AAA) 3.0 cm to 5.5 cm in diameter in male (Chronic) Found in October 2018, needs to be rechecked every 3 years Pure hypercholesterolemia (Chronic 01/31/12) goal LDL<70 Metabolic syndrome X (Chronic 02/15/13) goal 215# 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 s/p stenting x 5 2010 or 2011 at [facility] b. presenting symptom was primarily fatigue Hypertension (Chronic) H/O: urinary stone (Chronic) Hx of colonic polyps (Chronic) Benign prostatic hypertrophy (Chronic) Atrial fibrillation (Chronic) 10/09/20 [facility] [place] Cardiology Surgical History R small trigger finger release (05/28/16) [place] S/P ablation of atrial fibrillation (10/2018) steriotactic brain bx (01/27/15) [facility] [place] bx brain abscess Family History Mother , HF at age 89. Heart disease Father , stroke HBP at age 90. Essential hypertension Brother , heart at age 82. No problems noted. Brother No problems noted. 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 Pets and animals: No Sexually active: Yes Do you think of yourself as: straight/heterosexual Current gender identity: male What is your relationship status?: How often do you talk on the phone with friends or family?: three or more times per week How often do you get together with friends or relatives?: three or more times per week Do you belong to any clubs or organized social groups?: yes Panel score (0-1 are the most socially isolated patients): 3 What type of physical activity do you participate in: none Cassidy/Protestant: None Special cassidy needs: No Seatbelt use: always Drive intox or ride w/intox auto haulaway driver: No Working smoke detector in home: Yes Fire extinguisher in home: Yes Carbon monox detector in home: Yes Do you feel safe at home: Yes Do you feel safe in your relationship?: Yes Exam Const General: cooperative, healthy appearing, comfortable, no acute distress, not diaphoretic and not ill appearing Nutritional Appearance: average body habitus Orientation: alert, awake and oriented x3 Limitations: mental status not altered Neck Neck: normal visual inspection, full ROM, trachea midline, supple and no anterior neck swelling Chest Chest: normal inspection of the chest Resp Effort & Inspection: normal respiratory effort and able to speak in complete sentences Auscultation: clear to auscultation bilaterally Cardio Jugular venous pressure: no JVD Palpation: normal PMI Rate: tachycardic Rhythm: regular rhythm Heart Sounds: S1 normal, S2 normal and no murmurs Pulses: radial pulses present bilaterally 2+ GI Inspection: normal to inspection Palpation: soft, no pulsatile masses and nontender Auscultation: normal bowel sounds Skin General skin exam: no rashes or lesions noted Neuro General: patient alert, patient awake, patient oriented x3, tone normal and moves all extremities Course Vital Signs Vital signs: Vital Signs Temperature 36.6 C 05/06/23 08:32 Pulse 141 H 05/06/23 08:32 Respiratory Rate 28 H 05/06/23 08:32 Blood Pressure 179/128 H 05/06/23 08:32 Pulse Oximetry 97 05/06/23 08:32 Temperature 36.6 C 05/06/23 08:32 Temperature Source Temporal Artery Scan 05/06/23 08:32 Pulse 141 H 05/06/23 08:32 Respiratory Rate 28 H 05/06/23 08:32 Respiratory Effort Normal, Non-Labored 05/06/23 08:29 Blood Pressure 179/128 H 05/06/23 08:32 Pulse Oximetry 97 05/06/23 08:32 Oxygen Delivery Method Room Air 05/06/23 08:32 Oxygen Flow Rate 0 05/06/23 08:32
[2023-05-06 08:56] LABS: Abs Immature Grans 0.02 10^3/uL (0.0-0.06); Absolute Basophil Count 0.06 10^3/uL (0.0-0.2); Absolute Eosinophil Count 2.85 10^3/uL (0.0-0.7); Absolute Lymphocyte Count 1.31 10^3/uL (1.2-3.4); Absolute Neutrophil Count 5.65 10^3/uL (1.2-6.7); Basophils % 0.6; Eosinophils % 27.2; HCT 44.7 % (40.0-50.0); HGB 14.9 g/dL (13.5-17.5); Immature Grans % 0.2; Lymphocytes % 12.5; MCH 31.6 pg (27.0-33.0); MCHC 33.3 % (32.0-36.0); MCV 95 fL (80-95); MPV 10.6 fL (8.0-11.0); Monocytes % 5.7; Neutrophils % 53.8; Platelet Count 236 10^3/uL (130-400); RBC 4.71 10^6/uL (4.36-5.78); RDW 14.5 % (11.8-14.1); WBC 10.49 10^3/uL (4.4-10.8)
[2023-05-06] MEDS: Metoprolol 50 MG TAB PO ×2 (08:59→18:28)
[2023-05-06] MEDS: Normal Saline 250 ML IV (08:59)
[2023-05-06] MEDS: Metoprolol 5 MG/5 ML VIAL IVP ×3 (08:59→19:06)
[2023-05-06 09:20] LABS: ALT 34 U/L (16-63); AST 22 U/L (15-37); Albumin 3.7 g/dL (3.4-5.0); Alkaline Phosphatase 84 U/L (46-116); Anion Gap 7.1 mmol/L (3-11); BUN 21 mg/dL (7-18); Bilirubin, Total 1.3 mg/dL (0.2-1.0); CO2 26.9 mmol/L (21.0-32.0); CREATININE 0.9 mg/dL (0.70-1.30); Calcium 9.3 mg/dL (8.5-10.1); Chloride 105 mmol/L (98-107); Estimated GFR 87.96 (mL/min/1.73m2); Glucose 127 mg/dL (74-106); Magnesium 1.9 mg/dL (1.8-2.4); NT-proBNP 1596 pg/mL (<300); Sodium 139 mmol/L (136-145); Total Protein 7.5 g/dL (6.4-8.2); Troponin I < 50 ng/L (<or=60)
[2023-05-06 09:46] LABS: Diff Comment Agrees w/ Instrument; RBC Morphology Normal
[2023-05-06] MEDS: Furosemide 40 MG/4 ML VIAL IVP (10:35)
--- NOTE | 2023-05-06 11:45 | RT.EKG_ITS ---
APPROVED REPORT Exam: Resting ECG Reason for Exam: sob Patient Location: E HR:94 bpm ECG Measurements Heart Rate 94 AXIS WV [id number] P [id number] QRSd 122 QRS 70 QT 401 T 81 QTc 501 Conclusion Atrial flutter...A-rate 283 IVCD, consider RBBB...QRSd>120mS, terminal axis(90,270) ST elevation secondary to atrial flutter
[2023-05-06] MEDS: Metoprolol 25 MG TAB PO (12:03)
[2023-05-06 12:24] LABS: Troponin I < 50 ng/L (<or=60)
--- NOTE | 2023-05-06 13:14 | NUR.NOTE ---
Nursing Note: pt up and walking lowest Spo2 94% RA and Highest Heart rate 138.
--- NOTE | 2023-05-06 14:25 | HPE_ITS ---
Date of service: 05/06/23 Time of Service: 14:26 Assessment and Plan Assessment and plan (1) Atrial fibrillation with RVR: Status: Acute Assessment and plan: The patient is followed by EP at [facility]. We will reach out to the team in am if our increase in beta miller does not achieve sufficient rate control or if we run into difficulties with BP. I do think that the dose of lisinopril could be decreased further, if needed. (2) Pulmonary edema cardiac cause: Status: Acute Assessment and plan: Received 40 mg of IV furosemide. Will monitor I/Os and daily weights until reaches euvolemia. Last echo was on 01/14/23: LVEF was 55-60%, both atria are mildly dilated, has mild to moderate mitral regurgitation and moderate to severe tricuspid regurgitation. RVSP was 39 mmHg. (3) Diabetes mellitus type II, controlled: Status: Chronic Assessment and plan: Diet controlled. Will provide a carb consistent diet and cover with SSI. (4) Coronary disease: Status: Chronic Assessment and plan: No evidence of ACS on this admission. Continue atorvastatin, alis-i, BB. ?is the patient on aspirin. (5) DVT prophylaxis: Status: Acute Assessment and plan: Continue therapeutic rivoraxaban (6) Discharge planning issues: Status: Acute Assessment and plan: Full code Anticipate discharge home tomorrow History of Present Illness History of Present Illness Chief Complaint: shortness of breath Narrative: Mr Flores is a 77 year old male with PMHx of Atrial fibrillation on xarelto and on rate control with metoprolol, whose dose has been decreased as an outpatient due to reports of hypotension, as well as h/o CAD, diet-controlled DM2, hyp erlipidemia, who was brought to [facility] ED today by ambulace due to SOB. He noticed the shortness of breath that would wake him up from sleep last night, though he states that he only slept on a half of a pillow. He has had a dry cough and no fever. Denies dizziness, palpitations, CP, nausea. He did have some left subcostal discomfort yesterday that he thought was muscular from physical work he had to do yesterday. Upon arrival to the ER, he was in rapid Afib with HR in 140s. He was saturating 89% on RA and was clinically in fluid overload. His CXR confirmed pulmonary edema. He was treated with both IV and PO metoprolol in the ED with HR improving. He received 40 mg of IV furosemide to help with pulmonary edema. Because the patient's HR still went up into 140s and 150s when he got up to walk, observation on the hospitalist service was requested. Review of Systems All systems reviewed & are unremarkable except as noted in HPI and below PFSH All Active Problems (Updated 05/06/23 @ 19:41 by Liliana Ewing MD) Discharge planning issues (Acute) DVT prophylaxis (Acute) Atrial fibrillation with RVR (Acute) Pulmonary edema cardiac cause (Acute) Cough (Acute) Tricuspid regurgitation (Acute) Beat, premature ventricular (Acute ~08/2022) 09/11/22 Cardiology Atrial fibrillation, persistent (Acute ~08/2022) 08/28/22 Cardiology 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 (Acute) Syncope (Chronic) Prolonged QT interval (Acute) Atrial tachycardia determined by electrocardiography (Acute) Internal hemorrhoids (Acute) Diabetes mellitus type II, controlled (Chronic) Blood glucose abnormal (Acute 11/03/14) Trigger middle finger of right hand (Acute 04/25/16) Abdominal aortic aneurysm (AAA) 3.0 cm to 5.5 cm in diameter in male (Chronic) Found in October 2018, needs to be rechecked every 3 years Pure hypercholesterolemia (Chronic 01/31/12) goal LDL<70 Metabolic syndrome X (Chronic 02/15/13) goal 215# 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 s/p stenting x 5 2010 or 2011 at [facility] b. presenting symptom was primarily fatigue Hypertension (Chronic) H/O: urinary stone (Chronic) Hx of colonic polyps (Chronic) Benign prostatic hypertrophy (Chronic) Atrial fibrillation (Chronic) 10/09/20 [facility] [place] Cardiology Surgical History R small trigger finger release (05/28/16) [place] S/P ablation of atrial fibrillation (10/2018) steriotactic brain bx (01/27/15) [facility] [place] bx brain abscess Family History Mother , HF at age 89. Heart disease Father , stroke HBP at age 90. Essential hypertension Brother , heart at age 82. No problems noted. Brother No problems noted. 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 Pets and animals: No Sexually active: Yes Do you think of yourself as: straight/heterosexual Current gender identity: male What is your relationship status?: How often do you talk on the phone with friends or family?: three or more times per week How often do you get together with friends or relatives?: three or more times per week Do you belong to any clubs or organized social groups?: yes Panel score (0-1 are the most socially isolated patients): 3 What type of physical activity do you participate in: none Cassidy/Zoroastrianism: None Special cassidy needs: No Seatbelt use: always Drive intox or ride w/intox four horse hitch driver: No Working smoke detector in home: Yes Fire extinguisher in home: Yes Carbon monox detector in home: Yes Do you feel safe at home: Yes Do you feel safe in your relationship?: Yes Meds Allergies and Home Medications Allergies Allergy/AdvReac Type Severity Reaction Status Date / Time venom-honey bee Allergy Severe HIVES Verified 05/06/23 08:30 [bee venom (honey bee)] TACHYCARDIA Penicillins Allergy Intermediate HIVES Verified 05/06/23 08:30 levetiracetam [From [facility]] AdvReac Severe leukopenia Verified 05/06/23 08:30 prednisone AdvReac Severe rectal Verified 05/06/23 08:30 bleeding and diarrhea aspirin AdvReac Intermediate Nosebleeds Verified 05/06/23 08:30 ceftriaxone AdvReac Intermediate Leukopenia Verified 05/06/23 08:30 simvastatin AdvReac Intermediate LEG PAIN Verified 05/06/23 08:30 DR MCLEOD SHRIMP Allergy Intermediate HIVES , Uncoded 05/06/23 08:30 NAUSEA Home Medications Medication Instructions Recorded Confirmed Type blood-glucose meter #1 ea 12/04/20 05/06/23 Rx lancets #100 ea 12/04/20 05/06/23 Rx timolol maleate 0.5 % eye gel 1 drp ophthalmic (eye) DAILY 06/21/22 05/06/23 History forming solution atorvastatin 10 mg tablet 10 mg PO DAILY #90 tab-caps 10/10/22 05/06/23 Rx blood sugar diagnostic (Blood #100 ea 03/18/23 05/06/23 Rx Glucose Test strips) lisinopril 5 mg tablet 5 mg PO DAILY #90 tabs 03/18/23 05/06/23 Rx metoprolol succinate 200 mg 50 mg PO BID 04/14/23 05/06/23 History tablet,extended release 24 hr rivaroxaban 20 mg tablet 20 mg PO DAILY #90 tabs 04/14/23 05/06/23 Rx Exam Narrative Exam Narrative: General: Pleasant elderly male who appears comfortable laying nearly flat in bed on RA Neurological: A&Ox3, no focal deficits Psychiatric: Appropriate speech pattern/content Skin: Visible skin intact HEENT: Atraumatic, normocephalic, EOMI, MMM, clear oropharynx, no submandibular or cervical lymphadenopathy, no goiter or JVD Cardiovascular: irregularly irregular rhythm, no m/r/g Lungs: Crackles at B bases Gastrointestinal: soft, nontender, nondistended Genitourinary: deferred Extremities: no lesions on B feet, trace pedal pulses B, no e/c/c. Results Imaging Additional studies: CXR: Cardiomegaly and pulmonary venous congestion.? No focal consolidating infiltrates.? EKG #1: Rapid Afib, HR 141, nonspecific ST-T changes, no acute ischemia EKG #2: Aflutter, HR 94, no acute ischemia Labs 05/06/23 08:45 05/06/23 08:45 Labs: Laboratory Results - last 24 hr 05/06/23 05/06/23 05/06/23 08:45 08:45 11:57 WBC 10.49 RBC 4.71 Hgb 14.9 Hct 44.7 MCV 95 MCH 31.6 MCHC 33.3 RDW 14.5 H Plt Count 236 MPV 10.6 Immature Gran % 0.2 Neutrophils % 53.8 Lymphocytes % 12.5 Monocytes % 5.7 Eosinophils % 27.2 Basophils % 0.6 Nucleated RBC % 0.0 Absolute Neutrophils 5.65 Absolute Lymphocytes 1.31 Absolute Monocytes 0.60 Absolute Eosinophils 2.85 H Absolute Basophils 0.06 RBC Morphology Normal Sodium 139 Potassium 4.0 Chloride 105 Carbon Dioxide 26.9 Anion Gap 7.1 BUN 21 H Creatinine 0.9 Est GFR (CKD-EPI 2020) 87.96 Glucose 127 H Calcium 9.3 Magnesium 1.9 Total Bilirubin 1.3 H AST 22 ALT 34 Alkaline Phosphatase 84 Troponin I < 50 < 50 NT-Pro-B Natriuret Pep 1596 H Total Protein 7.5 Albumin 3.7 Last Vital Signs Temp 36.6 C 05/06/23 08:32 Pulse 103 H 05/06/23 14:15 Resp 18 05/06/23 12:50 BP 142/94 H 05/06/23 14:15 Pulse Ox 93 05/06/23 12:10 Time Spent Time spent with Patient: 40-54 minutes Time was spent: preparing to see the patient(eg.review tests), obtaining and/or reviewing separately otained hiistory, ordering medications,tests, procedures, referring, communicating with other health career guidance counselor, indepentently interpreting results, counseling the patient and care coordination
[2023-05-06 15:57] LABS: Lab Add On Test DONE
[2023-05-06 16:34] LABS: TSH 2.69 uIU/mL (0.36-3.74)
[2023-05-06] MEDS: Normal Saline Flush 10 ML SYR IVP (19:07)
[2023-05-06] MEDS: Rivaroxaban 10 MG TABLET 20 MG PO (21:42)
[2023-05-06] MEDS: Furosemide 20 MG/2 ML VIAL IVP (21:44)
[2023-05-07] VITALS (12 sets, daily range): BP systolic 112–134; BP diastolic 75–85; PULSE 68–121; RESP 16–20; TEMP 36.5–36.7; O2SAT 93–98
[2023-05-07] MEDS: Metoprolol 50 MG TAB PO ×4 (00:16→17:56)
[2023-05-07 07:03] LABS: Abs Immature Grans 0.02 10^3/uL (0.0-0.06); Absolute Basophil Count 0.04 10^3/uL (0.0-0.2); Absolute Eosinophil Count 1.65 10^3/uL (0.0-0.7); Absolute Neutrophil Count 4.93 10^3/uL (1.2-6.7); Basophils % 0.4; Eosinophils % 18.5; HCT 43.5 % (40.0-50.0); HGB 14.7 g/dL (13.5-17.5); Immature Grans % 0.2; Lymphocytes % 16.8; MCH 32.1 pg (27.0-33.0); MCHC 33.8 % (32.0-36.0); MCV 95 fL (80-95); Monocytes % 8.9; Neutrophils % 55.2; Platelet Count 216 10^3/uL (130-400); RBC 4.58 10^6/uL (4.36-5.78); RDW 14.5 % (11.8-14.1); RDW-SD 49.7 fL; WBC 8.94 10^3/uL (4.4-10.8)
[2023-05-07 07:16] LABS: Anion Gap 5.8 mmol/L (3-11); BUN 22 mg/dL (7-18); CO2 32.2 mmol/L (21.0-32.0); Calcium 9.5 mg/dL (8.5-10.1); Chloride 102 mmol/L (98-107); Estimated GFR 77.52 (mL/min/1.73m2); Glucose 105 mg/dL (74-106); Sodium 140 mmol/L (136-145)
[2023-05-07] MEDS: Timolol 0.5% 5 ML BTL OP (07:59)
[2023-05-07] MEDS: Furosemide 20 MG/2 ML VIAL IVP ×2 (07:59→16:37)
--- NOTE | 2023-05-07 12:12 | W.INDIABCONS ---
Date of service: 05/07/23 Time of Service: 12:00 Diabetes Inpatient Consult Reason for Visit: diabetes consult DESCRIPTION/ASSESSMENT: 77yo male admitted for AFib. Glucose well conrolled at home - no diabetic meds and glucometer used seldomly only when feeling symptomatic. BMI of 26.8 is considered acceptable for his age. He reports no barriers to eating healthy at home and tries to do so as often and consistent as possible. Most recent A1c was 5.4 on 12/20/22. Current diet ordered for Consistent CHO/heart healthy and he has been eating well. Tomas plans on being discharged within the next couple hours after the lunch meal. INTERVENTION: no significant nutrition intervention recommended. Pt at lower nutritional risk. PLAN: Told Tomas to contact me for outpatient education if desired in the future. Time Spent in Nutritional Counseling and Treatment: 15 minutes
--- NOTE | 2023-05-07 12:13 | INITIAL_ITS ---
Date of service: 05/07/23 Time of Service: 12:13 Care Management Initial Assmt Initial Assessment REASON FOR HOSPITALIZATION:: Rapid Afib PREVIOUS FUNCTIONAL STATUS/SOCIAL/FAMILY SUPPORTS:: Tomas lives in [facility] with his , Kisha. Their son, Amadeo, lives nearby. 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 CURRENT FUNCTIONAL STATUS:: Tomas was sitting up in his chair when CM met with him. He stated that he thinks he may be able to discharge home today, which he is looking forward to as he is feeling much better. He stated that he is very independent and does not feel that he requires any services upon discharge. CM will continue to follow. ADVANCE DIRECTIVES:: On file, his , Kisha, is listed as [facility]CA. Has patient been provided with info about the portal/API?: Yes Did the patient sign up for the portal?: Yes CODE STATUS:: Full Code INSURANCE COVERAGE / FINANCIAL ISSUES:: VBA CURRENT HOME/COMMUNITY SERVICES/EQUIPMENT:: None PRIMARY CARE PHYSICIAN:: Camacho Barrera POTENTIAL DISCHARGE NEEDS:: Evaluations for further needs, follow up appointments. PATIENT/FAMILY EDUCATION NEEDS:: Review discharge instructions and limitations, discussion of self care needs including ask me three. ANTICIPATED BARRIERS TO DISCHARGE:: None identified. TRANSPORTATION:: Via private vehicle by family. PLAN:: Anticipate Tomas will return home once medically cleared. His will drive him home via private vehicle. He will follow up with his PCP and discharge plan of care. CM will continue to follow. [facility] All Active Problems (Updated 05/06/23 @ 19:41 by Liliana Ewing MD) Discharge planning issues (Acute) DVT prophylaxis (Acute) Atrial fibrillation with RVR (Acute) Pulmonary edema cardiac cause (Acute) Cough (Acute) Tricuspid regurgitation (Acute) Beat, premature ventricular (Acute ~08/2022) 09/11/22 Cardiology Atrial fibrillation, persistent (Acute ~08/2022) 08/28/22 Cardiology 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 (Acute) Syncope (Chronic) Prolonged QT interval (Acute) Atrial tachycardia determined by electrocardiography (Acute) Internal hemorrhoids (Acute) Diabetes mellitus type II, controlled (Chronic) Blood glucose abnormal (Acute 11/03/14) Trigger middle finger of right hand (Acute 04/25/16) Abdominal aortic aneurysm (AAA) 3.0 cm to 5.5 cm in diameter in male (Chronic) Found in October 2018, needs to be rechecked every 3 years Pure hypercholesterolemia (Chronic 01/31/12) goal LDL<70 Metabolic syndrome X (Chronic 02/15/13) goal 215# 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 s/p stenting x 5 2010 [facility] b. presenting symptom was primarily fatigue Hypertension (Chronic) H/O: urinary stone (Chronic) Hx of colonic polyps (Chronic) Benign prostatic hypertrophy (Chronic) Atrial fibrillation (Chronic) 10[place]09/20 [facility] [place] History R small trigger finger release (05/28/16) [place] S/P ablation of atrial fibrillation (10/2018) steriotactic brain bx (01/27/15) [facility] bx brain abscess Family History Mother , HF at age 89. Heart disease Father , stroke HBP at age 90. Essential hypertension Brother , heart at age 82. No problems noted. Brother No problems noted. 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 Pets and animals: No Sexually active: Yes Do you think of yourself as: straight/heterosexual Current gender identity: male What is your relationship status?: How often do you talk on the phone with friends or family?: three or more times per week How often do you get together with friends or relatives?: three or more times per week Do you belong to any clubs or organized social groups?: yes Panel score (0-1 are the most socially isolated patients): 3 What type of physical activity do you participate in: none Cassidy/Jehovah'S Witness: None Special cassidy needs: No Seatbelt use: always Drive intox or ride w/intox 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
--- NOTE | 2023-05-07 12:51 | NUR.NOTE ---
Ambulated with patient in the eason & made several loops around. Patient presented with no signs of distress, SOB or dizziness. Was still on Tele during ambulation & no sudden changes noted or reported. Will continue to monitor. Nursing Note:
--- NOTE | 2023-05-07 15:40 | CHAPLAIN ---
I had a brief visit with Tomas, explained my role and offered support. He said he's doing well. He may be discharged today.
--- NOTE | 2023-05-07 19:54 | PGE_ITS ---
Date of Service Date of service: 05/07/23 Time of Service: 19:54 Assessment and Plan Assessment and plan (1) Atrial fibrillation with RVR: Status: Acute Assessment and plan: Afib/flutter. The patient is followed by EP at [facility]. Discussed with Dr Beasley. Will make NPO in preparation for cardioversion tomorrow am. Will order a decreased dose of lopressor starting tomorrow as well as start digoxin in am as recommended by EP. (2) Pulmonary edema cardiac cause: Status: Acute Assessment and plan: Continue IV furosemide. Will monitor I/Os and daily weights until reaches euvolemia. Last echo was on 01/14/23: LVEF was 55-60%, both atria are mildly dilated, has mild to moderate mitral regurgitation and moderate to severe tricuspid regurgitation. RVSP was 39 mmHg. (3) Diabetes mellitus type II, controlled: Status: Chronic Assessment and plan: Diet controlled. Continue carb consistent diet and cover with SSI. (4) Coronary disease: Status: Chronic Assessment and plan: No evidence of ACS on this admission. Continue atorvastatin, alis-i, BB. ?is the patient on aspirin. (5) DVT prophylaxis: Status: Acute Assessment and plan: Continue therapeutic rivoraxaban (6) Discharge planning issues: Status: Acute Assessment and plan: Full code Anticipate discharge home tomorrow after cardioversion Subjective Subjective Interval history since last seen: Mr Flores feels a lot better. He denies dizziness, CP, SOB, nausea, vomiting. He remains in Aflutter with HR of 110s. I discussed the case with Dr Beasley of [facility] cardiology who has stated that cardioversion has worked for this patient before and he recommends -setting the patient up for cardioversion, assuming he has not missed any doses of xarelto -decreasing his metoprolol to 50 mg PO BID starting tomorrow morning -starting a digoxin load in the morning. -if we are unable to cardiovert the patient here, he recommends that we contact [facility] again. Exam Narrative Exam Narrative: General: Pleasant elderly male who appears comfortable laying nearly flat in bed on RA HEENT: EOMI, MMM Cardiovascular: irregularly irregular rhythm, no m/r/g Lungs: Crackles at L base Gastrointestinal: soft, nontender, nondistended Extremities: no lesions on B feet, trace pedal pulses B, no e/c/c. Objective Last Vital Signs Temp 36.6 C 05/07/23 15:30 Pulse 105 H 05/07/23 15:30 Resp 18 05/07/23 15:30 BP 120/83 05/07/23 15:30 Pulse Ox 97 05/07/23 15:30 Laboratory Results - last 24 hr 05/07/23 05/07/23 06:30 06:30 WBC 8.94 RBC 4.58 Hgb 14.7 Hct 43.5 MCV 95 MCH 32.1 MCHC 33.8 RDW 14.5 H Plt Count 216 MPV 11.0 Immature Gran % 0.2 Neutrophils % 55.2 Lymphocytes % 16.8 Monocytes % 8.9 Eosinophils % 18.5 Basophils % 0.4 Nucleated RBC % 0.0 Absolute Neutrophils 4.93 Absolute Lymphocytes 1.50 Absolute Monocytes 0.80 Absolute Eosinophils 1.65 H Absolute Basophils 0.04 Sodium 140 Potassium 4.0 Chloride 102 Carbon Dioxide 32.2 H Anion Gap 5.8 BUN 22 H Creatinine 1.0 Est GFR (CKD-EPI 2020) 77.52 Glucose 105 Calcium 9.5 Magnesium 2.0 PAWSS Have you Been Recently Intoxicated or Drunk Within the Last 30 days?: No Have you Ever Experienced Previous Episodes of Alcohol Withdrawal?: No Have you ever Experienced Withdrawal Seizures?: No Have you ever Experienced Delirium Tremens(DT)s?: No Have you ever undergone Alcohol Rehabilitation Treatment (i.e, inpt ot outpatient treatment programs)?: No Have you ever Experienced Blackouts?: No Have you ever Combined Alcohol with other Downers within the last 90 days?: No Have you ever Combined Alcohol with any other Substance of Abuse during the last 90 days?: No Positive Blood Alcohol level on Presentation? [PCS.BAL]: No Evidence of Increased Autonomic Activity (i.e. HR>120, tremor, sweating, agitation, nausea)?: No Result: 0 Time Spent with Patient Time Spent with Patient: 35-49 minutes Time was spent: preparing to see the patient(eg.review tests), obtaining and/or reviewing separately otained hiistory, ordering medications,tests, procedures, referring, communicating with other health career manager, indepentently interpreting results, counseling the patient and care coordination
[2023-05-07] MEDS: Atorvastatin 10 MG TAB PO (19:56)
[2023-05-07] MEDS: Rivaroxaban 10 MG TABLET 20 MG PO (19:57)
[2023-05-08] VITALS (14 sets, daily range): BP systolic 87–144; BP diastolic 57–100; PULSE 55–109; RESP 13–20; TEMP 36.3–36.6; O2SAT 94–100; BMI 26.0
[2023-05-08] MEDS: Metoprolol 50 MG TAB PO ×2 (00:02→08:36)
[2023-05-08] MEDS: Normal Saline Flush 10 ML SYR IVP (08:31)
[2023-05-08] MEDS: Timolol 0.5% 5 ML BTL OP (08:31)
[2023-05-08] MEDS: Furosemide 20 MG/2 ML VIAL IVP (08:50)
[2023-05-08] MEDS: Digoxin 0.5 MG/2 ML AMP 0.125 MG IVP (08:52)
--- NOTE | 2023-05-08 10:25 | W.ANESPRE ---
General Info Date of Service Date Performed: 05/08/23 Height: 6 ft 2 in Weight: 92 kg Body Mass Index (BMI): 26.0 Surgical Procedure: Operation Date: 05/08/23 11:00 Proposed Procedure Side Surgeon p Cardioversion Nguyen Thomas MD Meds Allergies and Home Medications Allergies Allergy/AdvReac Type Severity Reaction Status Date / Time venom-honey bee Allergy Severe HIVES Verified 05/06/23 08:30 [bee venom (honey bee)] TACHYCARDIA Penicillins Allergy Intermediate HIVES Verified 05/06/23 08:30 levetiracetam [From [facility]] AdvReac Severe leukopenia Verified 05/06/23 08:30 prednisone AdvReac Severe rectal Verified 05/06/23 08:30 bleeding and diarrhea aspirin AdvReac Intermediate Nosebleeds Verified 05/06/23 08:30 ceftriaxone AdvReac Intermediate Leukopenia Verified 05/06/23 08:30 simvastatin AdvReac Intermediate LEG PAIN Verified 05/06/23 08:30 DR MCLEOD SHRIMP Allergy Intermediate HIVES , Uncoded 05/06/23 08:30 NAUSEA Home Medication Medication Instructions Recorded blood-glucose meter #1 ea 12/04/20 lancets #100 ea 12/04/20 atorvastatin 10 mg tablet 10 mg PO DAILY #90 tab-caps 10/10/22 blood sugar diagnostic (Blood #100 ea 03/18/23 Glucose Test strips) lisinopril 5 mg tablet 5 mg PO DAILY #90 tabs 03/18/23 metoprolol succinate 200 mg 50 mg PO BID 04/14/23 tablet,extended release 24 hr rivaroxaban 20 mg tablet 20 mg PO DAILY #90 tabs 04/14/23 timolol maleate 0.5 % eye gel 1 drp ophthalmic (eye) BID 05/08/23 forming solution Current Visit Medications: Current Medications Generic Name Dose Route Start Last Admin Trade Name Freq PRN Reason Stop Dose Admin Acetaminophen 0 mg 05/06/23 14:23 Acetaminophen 325 Mg Tab PO Q4H PRN PRN Al Hydrox/Mg Hydrox/Simethicone 30 ml 05/06/23 14:23 Mylanta Suspension 30 Ml Cup PO Q2H PRN PRN Atorvastatin Calcium 10 mg 05/07/23 20:00 05/07/23 19:56 Atorvastatin 10 Mg Tab PO 10 mg DAILY@2000 POPPY Administration Digoxin 0.125 mg 05/08/23 08:00 05/08/23 08:52 Digoxin 0.5 Mg/2 Ml Amp IVP 05/09/23 02:01 0.125 mg Q6H POPPY Administration Dimethicone/Zinc Oxide 0 gm 05/06/23 14:18 Guille Protect Cream 142 Gm Tube TP PRN PRN Docusate Sodium 100 mg 05/06/23 14:23 Docusate Sodium 100 Mg Cap PO TID PRN PRN Furosemide 20 mg 05/07/23 08:00 05/08/23 08:50 Furosemide 20 Mg/2 Ml Vial IVP 20 mg BID@0800,1600 POPPY Administration Sodium Chloride 500 mls @ 0 mls/hr 05/06/23 14:18 Saline 500ml Bag IV PRN PRN As Directed IV Miscellaneous Supplies 1 each 05/06/23 14:30 Iv Access IV DIRECTED [facility] Magnesium Hydroxide 30 ml 05/06/23 14:23 Milk Of Magnesia 30 Ml Cup PO DAILY PRN PRN Metoprolol Tartrate 5 mg 05/06/23 14:25 05/06/23 19:06 Metoprolol 5 Mg/5 Ml Vial IVP 5 mg Q6H PRN PRN Administration Metoprolol Tartrate 50 mg 05/08/23 08:35 05/08/23 08:36 Metoprolol 50 Mg Tab PO 50 mg BID POPPY Administration Rivaroxaban 20 mg 05/07/23 20:00 05/07/23 19:57 Rivaroxaban 10 Mg Tablet PO 20 mg QPM POPPY Administration Sodium Chloride 0 ml 05/06/23 14:18 05/08/23 08:31 Normal Saline Flush 10 Ml Syr IVP 40 ml PRN PRN Administration Timolol Maleate 0 ml 05/08/23 20:00 Timolol 0.5% 5 Ml Btl OP BID [facility] PFSH Active Problems Active Problems: Problem Status Onset Code Discharge planning issues Z02.9 DVT prophylaxis Z29.9 Atrial fibrillation with RVR I48.91 Pulmonary edema cardiac cause I50.1 Cough R05.9 Tricuspid regurgitation I07.1 Beat, premature ventricular ~08/2022 I49.3 Atrial fibrillation, persistent ~08/2022 I48.19 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 M51.26 Syncope R55 Prolonged QT interval R94.31 Atrial tachycardia determined by electrocardiography I47.1 Internal hemorrhoids K64.8 Diabetes mellitus type II, controlled E11.9 Blood glucose abnormal 11/03/14 R73.09 Trigger middle finger of right hand 04/25/16 M65.331 Abdominal aortic aneurysm (AAA) 3.0 cm to 5.5 cm in diameter in male I71.4 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 G56.22 Pure hypercholesterolemia 01/31/12 E78.00 Closed stable burst fracture of seventh thoracic vertebra with routine healing 12/23/16 S22.061D Metabolic syndrome X 02/15/13 E88.81 Late effects of brain abscess 01/26/15 G09 Hemiparesis, left 02/07/15 G81.94 Coronary atherosclerosis of [place] coronary vessel 05/01/11 I25.10 Atherosclerosis of [place] coronary artery of [place] heart without angina pectoris 05/01/11 I25.10 Actinic keratosis 08/16/13 L57.0 Coronary disease I25.10 Hypertension I10 H/O: urinary stone Z87.442 Hx of colonic polyps Z86.010 Benign prostatic hypertrophy N40.0 Atrial fibrillation I48.91 Surgical History Surgical History R small trigger finger release (05/28/16) [place] S/P ablation of atrial fibrillation (10/2018) steriotactic brain bx (01/27/15) [facility] bx brain abscess Tobacco Smoking/Tobacco Use Status: Never Passive smoking exposure: No Alcohol Alcohol Intake: current Alcohol intake frequency: 0-2 drinks per day Alcohol type: hard liquor Substance Use Substance use: Never Substance use type: does not use Vital Signs and Lab Results Vital Signs Most Recent Vital Signs in EMR: Most Recent Vital Signs Temp Pulse Resp BP Pulse Ox 36.3 C L 108 H 16 142/92 H 98 05/08/23 07:39 05/08/23 09:03 05/08/23 07:39 05/08/23 09:03 05/08/23 07:39 Point of Care Results Point of Care Results: Finger Stick Blood Glucose 107 05/08/23 08:12 Lab Results 05/07/23 06:30 05/07/23 06:30 Blood Type / Crossmatch: No Data to Display Complete Blood Count: White Blood Count 8.94 10^3/uL (4.4-10.8) 05/07/23 06:30 Red Blood Count 4.58 10^6/uL (4.36-5.78) 05/07/23 06:30 Hemoglobin 14.7 g/dL (13.5-17.5) 05/07/23 06:30 Hematocrit 43.5 % (40.0-50.0) 05/07/23 06:30 Platelet Count 216 10^3/uL (130-400) 05/07/23 06:30 Complete Metabolic Panel: Sodium 140 mmol/L (136-145) 05/07/23 06:30 Potassium 4.0 mmol/L (3.5-5.1) 05/07/23 06:30 Chloride 102 mmol/L (98-107) 05/07/23 06:30 Carbon Dioxide 32.2 mmol/L (21.0-32.0) H 05/07/23 06:30 BUN 22 mg/dL (7-18) H 05/07/23 06:30 Creatinine 1.0 mg/dL (0.70-1.30) 05/07/23 06:30 Est GFR (CKD-EPI 2020) 77.52 (mL/min/1.73m2) 05/07/23 06:30 Magnesium 2.0 mg/dL (1.8-2.4) 05/07/23 06:30 Calcium 9.5 mg/dL (8.5-10.1) 05/07/23 06:30 Albumin 3.7 g/dL (3.4-5.0) 05/06/23 08:45 Glucose 105 mg/dL (74-106) 05/07/23 06:30 Liver Function Panel: Alanine Aminotransferase (ALT/SGPT) 34 U/L (16-63) 05/06/23 08:45 Aspartate Amino Transf (AST/SGOT) 22 U/L (15-37) 05/06/23 08:45 Coagulation Panel: No Data to Display Cardiac Panel: Troponin I < 50 ng/L (<or=60) 05/06/23 NT-Pro-B Natriuret Pep 1596 pg/mL (<300) H 05/06/23 Arterial Blood Gas: No Data to Display Venous Blood Gas: No Data to Display Pancreas Panel: No Data to Display Thyroid Panel: Thyroid Stimulating Hormone (TSH) 2.69 uIU/mL (0.36-3.74) 05/06/23 11:57 Infectious Disease: No Data to Display Blood Cultures: No Data to Display Toxicology Panel: No Data to Display Anesthesia Assessment and Plan Anesthesia History Personal History: No History of Anesthesia Complications Family History: No Family History of Anesthesia Complications Exercise Tolerance Exercise Tolerance: Metabolic Equivalents>4 Pertinent Negatives Pertinent Negatives: No Symptoms of GERD Cardiac & Pulmonary Exam Cardiac Exam: Unable to Assess Pulmonary Exam: Clear Bilateral Breath Sounds Implantable Cardiac Device Does patient have a Pacemaker or an ICD?: No Airway Exam Known Difficult Airway: No Mallampati Class: 2 Mouth Opening: Normal (> 3cm) Thyromental Distance: Greater than 3 cm Neck Range of Motion: Full ROM Neck Circumference: Normal Teeth Condition: Normal Dentition ASA Classification ASA Score: ASA 2 Emergency Case?: No NPO Status NPO Status: NPO Clears >2 hours, Solids >8 hours Anesthesia Plan Resuscitation Status: Full Code Anesthesia Technique: General Anesthesia Airway Planned: Natural Airway Monitors Used: Standard Monitors
--- NOTE | 2023-05-08 10:48 | PDOC.CMPRO ---
Date of service: 05/08/23 Time of Service: 10:48 Care Management Progress Note Progress Note Text Progress Note Text: S/O: A: 77 year old male admitted to [facility] on 05/06/23 for P:
[2023-05-08] MEDS: Lactated Ringers 1,000 ML 125 ML IV (10:55)
--- NOTE | 2023-05-08 11:28 | W.ANESPOSTOP ---
Postoperative Evaluation Date, Time and Location Date Performed: 05/08/23 Time Performed: 11:28 Patient Location: PACU Vital Signs Most Recent Imported Vital Signs: Most Recent Vital Signs Temp Pulse Resp BP Pulse Ox 36.3 C L 108 H 16 142/92 H 98 05/08/23 07:39 05/08/23 09:03 05/08/23 07:39 05/08/23 09:03 05/08/23 07:39 Pain Score Most Recent Pain Score: Most Recent Pain Score Pain Level 0 05/08/23 07:39 Assessment Mental Status: Awake (Alert & Oriented to Patient Baseline) Airway and Respiratory Function: Patent airway with normal (patient baseline) respiratory exam Cardiovascular Function: Hemodynamically Stable Hydration Status: Adequately Hydrated Nausea & Vomiting: No Nausea or Vomiting Pain: Pt. Denies Any Pain Peripheral Nerve Block: Patient did not receive a nerve block
--- NOTE | 2023-05-08 11:35 | W.CARDVER ---
Date of service: 05/08/23 Time of Service: 11:35 Cardioversion PRE-OP DIAGNOSES: Atrial flutter POST-OP DIAGNOSES: same Indications: Recurrent atrial flutter Procedure Description: Synchronized cardioversion Patient was sedated under the direction of anesthesia. When adequate sedation was obtained he had 1 synchronized shock at 150 watt- seconds with anterior and posterior pads and converted to sinus bradycardia, rate approximately 50. Patient tolerated the procedure without difficulty. He was taken to the recovery area and when fully awake will be returned to the medical floor
--- NOTE | 2023-05-08 14:22 | DSE_ITS ---
Date of service: 05/08/23 Time of Service: 14:22 DS: Diagnosis Discharge Diagnosis (1) Atrial fibrillation with RVR: Status: Acute Asessment and Plan: Now s/p electrocardioversion and in sinus rhythm. Previously he has undergone cardioversion x 2 and ablation tx x 1. Hold metoprolol. Pulse in the 60's. LIkely will not require as long as he remains in sinus rhythm. Cont rivaroxaban. + risk of converting back to afib/aflutter. (2) Pulmonary edema cardiac cause: Status: Acute Asessment and Plan: He has diuresed well with lasix. On RA w/o complaint of shortness of air / dyspnea. (3) Diabetes mellitus type II, controlled: Status: Chronic Asessment and Plan: Diet controlled. A1c 5.4 in december of this year. (4) Coronary disease: Status: Chronic Asessment and Plan: Cont metoprolol. Not on aspirin. Discharge Plan Disposition Patient Disposition: Home Condition: Good Discharge Details Reason For Visit: Rapid, Afib/Aflutter Admit Date/Time: 05/06/23 14:21 Admit Provider: Liliana Ewing Attending Provider: Liliana Ewing Primary Care Provider: Camacho Barrera [facility] Hospital Course: Mr Flores is a 77 year old male with PMHx of Atrial fibrillation on xarelto and on rate control with metoprolol, whose dose has been decreased as an outpatient due to reports of hypotension, as well as h/o CAD, diet-controlled DM2, hyperlipidemia, who was brought to [facility] ED today by ambulace due to? SOB. He noticed the shortness of breath that would wake him up from sleep the night before presentation, though he states that he only slept on a half of a pillow. He has? had a dry cough and no fever. Denies dizziness, palpitations, CP, nausea. He did have some left subcostal discomfort yesterday that he thought was muscular from physical work he had to do the prior day. Upon arrival to the ER, he? was in rapid Afib with HR in 140s. He was saturating 89% on RA and was clinically in fluid overload. His CXR confirmed pulmonary edema. He was treated with both IV and PO metoprolol in the ED with HR improving. He received 40 mg of IV furosemide to help with pulmonary edema. Because the patient's HR still went up into 140s and 150s when he got up to walk, observation on the hospitalist service was requested. See Diagnosis PCP follow up in 1-2 weeks. Home Meds and New Rx's Prescriptions: Continued rivaroxaban 20 mg tablet 20 mg PO DAILY Qty: 90 3RF Hold Instructions: Resume on 05/02/22. Rx Instructions: must administer with evening meal atorvastatin 10 mg tablet 10 mg PO DAILY Qty: 90 3RF lisinopril 5 mg tablet 5 mg PO DAILY Qty: 90 3RF timolol maleate 0.5 % gel forming solution 1 drp ophthalmic (eye) BID Held metoprolol succinate 200 mg tablet extended release 24 hr 50 mg PO BID Hold Instructions: Until PCP follow up and then decision to be made. Patient Comments: not taking No Action (DME) blood-glucose meter Misc See Rx Instructions .ROUTE .MEDSUPPLY Qty: 1 0RF Rx Instructions: As directed to check blood glucose. No insulin. Dispense covered brand. (DME) lancets Misc See Rx Instructions .ROUTE .MEDSUPPLY Qty: 100 3RF Rx Instructions: As directed to check blood glucose daily. No insulin. Dispense covered brand. (DME) Blood Glucose Test Strip See Rx Instructions .ROUTE .MEDSUPPLY Qty: 100 3RF Rx Instructions: As directed to check blood glucose daily. No insulin. Dispense covered brand. Discharge Instructions Activity:: Activity as Tolerated Equipment/Supplies:: No Equipment Needed Diet:: Resume usual home diet. Discharge Orders Discharge Orders: Discharge Order (Routine); Ordered 05/08/23 Ordered By: Jame Aguila DS: Summary Time Spent with Patient providing and/or coordinating discharge services: Greater than 30 minutes Status at Discharge Functional status at discharge: independent ambulation Overall status at discharge: patient is back to baseline Mental Status: mental status grossly normal Speech and Movement: speech and movement normal Mood: congruent mood Affect: normal affect Exam Narrative Exam Narrative: General: Pleasant elderly male who appears comfortable laying nearly flat in bed on RA. Conversant. is present. S/P electrocardioversion. HEENT: MMM, sclera clear. Cardiovascular: RRR, S1, S2. Lungs: CTAB Gastrointestinal: soft, nontender, nondistended Extremities: Tr pedal edema. No calf tenderness. Psych Mental Status: mental status grossly normal Speech and Movement: speech and movement normal Mood: congruent mood Affect: normal affect DS: Data Vitals/I&O Vitals and I&O: Vital Signs Temperature 36.4 C L 05/08/23 11:50 Temperature Source Tympanic 05/08/23 07:39 Pulse 60 05/08/23 11:50 Pulse Rhythm Irregular 05/08/23 08:35 Pulse 141 H 05/06/23 17:20 Respiratory Rate 15 05/08/23 11:50 Respiratory Effort Normal, Non-Labored 05/08/23 08:35 Respiratory Depth Normal 05/08/23 08:35 Respiratory Pattern Normal 05/08/23 08:35 Blood Pressure 111/65 05/08/23 11:50 Blood Pressure Mean 90 05/06/23 17:01 Pulse Oximetry 98 05/08/23 11:50 Respiratory End-tidal CO2 36 05/08/23 11:50 Oxygen Delivery Method Room Air 05/08/23 11:50 Oxygen Flow Rate 2 05/08/23 11:20 Pain Level 0 05/08/23 07:39 Intake & Output 05/07/23 05/08/23 05/08/23 23:59 11:59 23:59 Intake Total 250 / 810 510 / 793.75 283.75 / 793.75 Output Total 1200 / 1750 1000 / 1000 Balance -950 / -940 -490 / -206.25 283.75 / -206.25 Weight 92 kg Intake: IV 510 / 553.75 43.75 / 553.75 Oral 240 / 790 240 / 240 Output: Urine 1200 / 1750 1000 / 1000 Other: Urine Color Yellow Yellow Urine Appearance Clear Clear Urine Odor None None Emesis Description None Voiding Methods Urinal PFSH All Active Problems Discharge planning issues (Acute) DVT prophylaxis (Acute) Atrial fibrillation with RVR (Acute) Pulmonary edema cardiac cause (Acute) Cough (Acute) Tricuspid regurgitation (Acute) Beat, premature ventricular (Acute ~08/2022) 09/11/22 Cardiology Atrial fibrillation, persistent (Acute ~08/2022) 08/28/22 Cardiology 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 (Acute) Syncope (Chronic) Prolonged QT interval (Acute) Atrial tachycardia determined by electrocardiography (Acute) Internal hemorrhoids (Acute) Diabetes mellitus type II, controlled (Chronic) Blood glucose abnormal (Acute 11/03/14) Trigger middle finger of right hand (Acute 04/25/16) Abdominal aortic aneurysm (AAA) 3.0 cm to 5.5 cm in diameter in male (Chronic) Found in October 2018, needs to be rechecked every 3 years Pure hypercholesterolemia (Chronic 01/31/12) goal LDL<70 Metabolic syndrome X (Chronic 02/15/13) goal 215# 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 s/p stenting x 5 2010 or 2011 at [facility] b. presenting symptom was primarily fatigue Hypertension (Chronic) H/O: urinary stone (Chronic) Hx of colonic polyps (Chronic) Benign prostatic hypertrophy (Chronic) Atrial fibrillation (Chronic) 10/09/20 [facility] [place] [facility] Surgical History R small trigger finger release (05/28/16) [place] S/P ablation of atrial fibrillation (10/2018) steriotactic brain bx (01/27/15) [facility] [place] bx brain abscess Family History Mother , HF at age 89. Heart disease Father , stroke HBP at age 90. Essential hypertension Brother , heart at age 82. No problems noted. Brother No problems noted. 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 Pets and animals: No Sexually active: Yes Do you think of yourself as: straight/heterosexual Current gender identity: male What is your relationship status?: How often do you talk on the phone with friends or family?: three or more times per week How often do you get together with friends or relatives?: three or more times per week Do you belong to any clubs or organized social groups?: yes Panel score (0-1 are the most socially isolated patients): 3 What type of physical activity do you participate in: none Cassidy/Church: None Special cassidy needs: No Seatbelt use: always Drive intox 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
--- NOTE | 2023-05-08 14:27 | PDOC.CMDIS ---
Date of service: 05/08/23 Time of Service: 14:28 LACE Index Scoring Tool Questions: Length of Stay (in days): 2 Was the patient admitted via the E.D.?: Yes Comorbidities: Diabetes w/o Complication E.D. Visits: 3 Answers: Total Score: 9 Risk of Readmission: Low Risk Care Management Discharge Plan Reason for Hospitalization: Rapid Afib Discharge Plan: Camacho is discharged home via private vehicle with family. He will follow up with community providers and discharge plan of care as prescribed. No VNA services are ordered at time of discharge. Patient/Family Education Needs: Reviewed discharge instructions, limitations and plan to follow up with PCP in 1-2 weeks. Discuss ask me three.
== END 2023-05-08 15:09 | disposition home or self-care (01) ==
LOC: ER 14:31 → MS 17:46
PROVIDERS: Internal Medicine Cardiovascular Disease; Admitting Provider Internal Medicine; Emergency Provider Nurse Practitioner Family; PCP Family Medicine; Visit Provider Internal Medicine
PROC: 5A2204Z Restoration of Cardiac Rhythm, Single (ICD-10-PCS; CPT 92960; principal; 2023-05-08 11:00)
DX: I48.91 Unspecified atrial fibrillation (principal); I50.1 Left ventricular failure, unspecified; E11.9 Type 2 diabetes mellitus without complications; I25.10 Atherosclerotic heart disease of native coronary artery without angina pectoris; I08.1 Rheumatic disorders of both mitral and tricuspid valves; Z79.01 Long term (current) use of anticoagulants; E78.5 Hyperlipidemia, unspecified; R05.9 Cough, unspecified; K64.8 Other hemorrhoids; I71.40 Abdominal aortic aneurysm, without rupture, unspecified; Z95.5 Presence of coronary angioplasty implant and graft; I10 Essential (primary) hypertension; G81.94 Hemiplegia, unspecified affecting left nondominant side; N40.0 Benign prostatic hyperplasia without lower urinary tract symptoms; I48.92 Unspecified atrial flutter; I49.3 Ventricular premature depolarization
CPT/HCPCS: 92960; 36415; 80048; 80053; 93005; 94618; 96374; 96375; 96376; 99285; 71045; 83735; 83880; 84443; 84484; 85025; 93010; 99223; 99233; 99239; G0378; J1160; J1940; J1941; J2704

== ENCOUNTER 2023-05-16 11:08 | Day surgery (SDC) | payer MEDICARE, SELFPAY ==
[2023-05-16 12:18] VITALS: BP 174/88; PULSE 75; RESP 16; TEMP 36.2; O2SAT 98
[2023-05-16] MEDS: Tropicam./Phenyleph. (1/2.5%) 5 ML BTL OD ×3 (12:28→12:38)
--- NOTE | 2023-05-16 12:49 | W.ANESPRE ---
General Info Date of Service Date Performed: 05/16/23 Height: 6 ft 2 in Weight: 95.8 kg Body Mass Index (BMI): 27.1 Surgical Procedure: Operation Date: 05/16/23 14:40 Proposed Procedure Side Surgeon p Cataract Extraction with IOL Implant w/Glaucoma Stent & Goniotomy Right Jame Long MD Meds Allergies and Home Medications Allergies Allergy/AdvReac Type Severity Reaction Status Date / Time venom-honey bee Allergy Severe HIVES Verified 05/16/23 12:16 [bee venom (honey bee)] TACHYCARDIA Penicillins Allergy Intermediate HIVES Verified 05/16/23 12:16 levetiracetam [From [facility]] AdvReac Severe leukopenia Verified 05/16/23 12:16 prednisone AdvReac Severe rectal Verified 05/16/23 12:16 bleeding and diarrhea aspirin AdvReac Intermediate Nosebleeds Verified 05/16/23 12:16 ceftriaxone AdvReac Intermediate Leukopenia Verified 05/16/23 12:16 simvastatin AdvReac Intermediate LEG PAIN Verified 05/16/23 12:16 DR MCLEOD SHRIMP Allergy Intermediate HIVES , Uncoded 05/15/23 10:47 NAUSEA Home Medication Medication Instructions Recorded atorvastatin 10 mg tablet 10 mg PO DAILY #90 tab-caps 10/10/22 lisinopril 5 mg tablet 5 mg PO DAILY #90 tabs 03/18/23 rivaroxaban 20 mg tablet 20 mg PO DAILY #90 tabs 04/14/23 timolol maleate 0.5 % eye gel 1 drp ophthalmic (eye) BID 05/08/23 forming solution Current Visit Medications: Current Medications Generic Name Dose Route Start Last Admin Trade Name Freq PRN Reason Stop Dose Admin Acetaminophen 1,000 mg 05/16/23 08:18 Acetaminophen 500 Mg Tab PO 06/15/23 08:17 Q4H PRN PRN Balanced Salt Solution 500 ml 05/16/23 08:18 Balanced Salt Soln.-Plus 500 Ml Bag OP 06/15/23 08:17 DIRECTED POPPY Miscellaneous Medication 0 ml 05/16/23 08:18 Prednisolone 1%, Moxifloxacin 0.5%, Nepafenac 0.1% 5ml Btl OD 06/15/23 08:17 DIRECTED POPPY Miscellaneous Medication 0 ml 05/16/23 08:18 05/16/23 12:38 Tropicam./Phenyleph. (1/2.5%) 5 Ml Btl OD 06/15/23 08:17 1 drp DIRECTED POPPY Administration Tetracaine HCl 0 ml 05/16/23 08:18 Tetracaine 0.5% 4 Ml Btl OD 06/15/23 08:17 DIRECTED POPPY PFSH Active Problems Active Problems: Problem Status Onset Code Posterior subcapsular age-related cataract, right eye H25.041 Nuclear age-related cataract, right eye H25.11 Primary open angle glaucoma (POAG) of right eye, mild stage H40.1111 Cough R05.9 Tricuspid regurgitation I07.1 Beat, premature ventricular ~08/2022 I49.3 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 M51.26 Syncope R55 Prolonged QT interval R94.31 Atrial tachycardia determined by electrocardiography I47.1 Internal hemorrhoids K64.8 Diabetes mellitus type II, controlled E11.9 Blood glucose abnormal 11/03/14 R73.09 Trigger middle finger of right hand 04/25/16 M65.331 Abdominal aortic aneurysm (AAA) 3.0 cm to 5.5 cm in diameter in male I71.4 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 G56.22 Pure hypercholesterolemia 01/31/12 E78.00 Closed stable burst fracture of seventh thoracic vertebra with routine healing 12/23/16 S22.061D Metabolic syndrome X 02/15/13 E88.81 Late effects of brain abscess 01/26/15 G09 Hemiparesis, left 02/07/15 G81.94 Coronary atherosclerosis of [place] coronary vessel 05/01/11 I25.10 Atherosclerosis of [place] coronary artery of [place] heart without angina pectoris 05/01/11 I25.10 Actinic keratosis 08/16/13 L57.0 Coronary disease I25.10 Hypertension I10 H/O: urinary stone Z87.442 Hx of colonic polyps Z86.010 Benign prostatic hypertrophy N40.0 Atrial fibrillation I48.91 Medical History Medical History Atrial fibrillation with RVR Surgical History Surgical History R small trigger finger release (05/28/16) [place] S/P ablation of atrial fibrillation (10/2018) steriotactic brain bx (01/27/15) [facility] [place] bx brain abscess Tobacco Smoking/Tobacco Use Status: Former Tobacco Use Passive smoking exposure: No Alcohol Alcohol Intake: current Alcohol intake frequency: 0-2 drinks per day Alcohol type: hard liquor Substance Use Substance use: Never Substance use type: does not use Vital Signs and Lab Results Vital Signs Most Recent Vital Signs in EMR: Most Recent Vital Signs Temp Pulse Resp BP Pulse Ox 36.2 C L 75 16 174/88 H 98 05/16/23 12:18 05/16/23 12:18 05/16/23 12:18 05/16/23 12:18 05/16/23 12:18 Lab Results Blood Type / Crossmatch: No Data to Display Complete Blood Count: White Blood Count 8.94 10^3/uL (4.4-10.8) 05/07/23 06:30 Red Blood Count 4.58 10^6/uL (4.36-5.78) 05/07/23 06:30 Hemoglobin 14.7 g/dL (13.5-17.5) 05/07/23 06:30 Hematocrit 43.5 % (40.0-50.0) 05/07/23 06:30 Platelet Count 216 10^3/uL (130-400) 05/07/23 06:30 Complete Metabolic Panel: Sodium 140 mmol/L (136-145) 05/07/23 06:30 Potassium 4.0 mmol/L (3.5-5.1) 05/07/23 06:30 Chloride 102 mmol/L (98-107) 05/07/23 06:30 Carbon Dioxide 32.2 mmol/L (21.0-32.0) H 05/07/23 06:30 BUN 22 mg/dL (7-18) H 05/07/23 06:30 Creatinine 1.0 mg/dL (0.70-1.30) 05/07/23 06:30 Est GFR (CKD-EPI 2020) 77.52 (mL/min/1.73m2) 05/07/23 06:30 Magnesium 2.0 mg/dL (1.8-2.4) 05/07/23 06:30 Calcium 9.5 mg/dL (8.5-10.1) 05/07/23 06:30 Albumin 3.7 g/dL (3.4-5.0) 05/06/23 08:45 Glucose 105 mg/dL (74-106) 05/07/23 06:30 Liver Function Panel: Alanine Aminotransferase (ALT/SGPT) 34 U/L (16-63) 05/06/23 08:45 Aspartate Amino Transf (AST/SGOT) 22 U/L (15-37) 05/06/23 08:45 Coagulation Panel: No Data to Display Cardiac Panel: Troponin I < 50 ng/L (<or=60) 05/06/23 NT-Pro-B Natriuret Pep 1596 pg/mL (<300) H 05/06/23 Arterial Blood Gas: No Data to Display Venous Blood Gas: No Data to Display Pancreas Panel: No Data to Display Thyroid Panel: Thyroid Stimulating Hormone (TSH) 2.69 uIU/mL (0.36-3.74) 05/06/23 11:57 Infectious Disease: No Data to Display Blood Cultures: No Data to Display Toxicology Panel: No Data to Display Imaging and Studies Imaging and Studies Study information below may be from another EMR and interpreted by another provider. Please see original notes in EMR for more complete details. EKG Summary: Conclusion Atrial flutter...A-rate 283 IVCD, consider RBBB...QRSd>120mS, terminal axis(90,270) ST elevation secondary to atrial flutter I have reviewed and I agree with the emergency room physician's ECG interpretation. 05/06/23 Stress Test Summary: Impressions: - Indeterminate exercise stress test due to inadequate heart rate thus changed to pharmacological stress test. - Normal myocardial perfusion and contraction after pharmacological stress. - Low risk of cardiac events. Summary: 1. Myocardial perfusion imaging: No myocardial perfusion defects noted. 2. The calculated left ventricular ejection fraction after stress: 68%. LV global systolic function is normal. No left ventricular regional motion abnormality. 3. Stress: The target heart rate was not achieved. There is a normal resting blood pressure with an appropriate response to stress. Exercise capacity is markedly diminished for age. 4. Baseline ECG: Occasional isolated ventricular ectopy with left bundle branch block with an inferior axis QRS morphology. Nonspecific ST changes. 5. Treadmill exercise testing was performed using the Manolo protocol. The patient exercised for 3 min, to protocol stage 2, to a maximal work rate of 4.7mets. Exercise was terminated due to gait disturbance. 07/07/19 Echocardiogram Summary: Conclusion Normal left ventricular wall thickness and chamber size. Estimated ejection fraction is 55 to 60%. There were no segmental wall motion abnormalities Grossly normal right ventricular size and function Both atria are mildly dilated Aortic valve is sclerotic with trace regurgitation Mitral annular calcification, mild to moderate mitral regurgitation Normal tricuspid valve with moderate to severe regurgitation. Estimated right ventricular systolic pressure is 39 mmHg Dilated ascending aorta Patient was in atrial fibrillation with an uncontrolled rate throughout the study with [id number] variation 01/14/23 Carotid Artery Summary:: CAROTID ULTRASOUND: A small amount of plaque is seen in the distal common carotid arteries and common carotid bulbs. The velocity measurements in the internal carotid arteries are within the normal range. The left vertebral artery shows antegrade flow. The right vertebral artery was not visualized. IMPRESSION: No significant carotid artery stenosis. The right vertebral artery was not visualized. 01/24/15 Anesthesia Assessment and Plan Anesthesia History Personal History: No History of Anesthesia Complications Family History: No Family History of Anesthesia Complications Exercise Tolerance Exercise Tolerance: Metabolic Equivalents>4 Pertinent Negatives Pertinent Negatives: No Symptoms of GERD, No Major Cardiovascular Symptoms or Complaints and No Major Pulmonary Symptoms or Complaints Cardiac & Pulmonary Exam Cardiac Exam: Normal S1/S2 Heart Sounds Pulmonary Exam: Clear Bilateral Breath Sounds Cardiac and Pulmonary Comment:: Cardioversion one week ago, successful conversion. Implantable Cardiac Device Does patient have a Pacemaker or an ICD?: No Airway Exam Known Difficult Airway: No Mallampati Class: 2 Mouth Opening: Normal (> 3cm) Thyromental Distance: Greater than 3 cm Neck Range of Motion: Full ROM Neck Circumference: Normal Teeth Condition: Normal Dentition ASA Classification ASA Score: ASA 2 Emergency Case?: No NPO Status NPO Status: NPO Clears >2 hours, Solids >8 hours Anesthesia Plan Resuscitation Status: Full Code Anesthesia Technique: MAC Anesthesia Airway Planned: Natural Airway Monitors Used: Standard Monitors
[2023-05-16] MEDS: Tetracaine 0.5% 4 ML BTL OD (13:32)
[2023-05-16] MEDS: Balanced Salt Soln.-PLUS 500 ML BAG OP (13:40)
[2023-05-16] MEDS: Duovisc Viscoelastic System EACH 1 EACH (13:40)
[2023-05-16] MEDS: Lidocaine 1% Pres-Free 5 ML VIAL (13:41)
[2023-05-16] MEDS: Phenylephrine/Lidocaine (15/10) MG/ML 1 ML VIAL (13:45)
[2023-05-16 13:46] VITALS: BMI 27.1
[2023-05-16] MEDS: Trypan Blue 0.06% 0.5 ML SYR (13:46)
[2023-05-16] MEDS: Povidone-Iodine Ophth 30 ML BTL (13:46)
[2023-05-16 14:16] VITALS: BP 145/65; PULSE 61; RESP 16; TEMP 36.3; O2SAT 99
--- NOTE | 2023-05-16 14:21 | W.PM.DSUDISC ---
Date of service: 05/16/23 Time of Service: 14:21 Discharge Plan Discharge Details Attending Provider: Jame Long Primary Care Provider: Camacho Barrera Home Meds and New Rx's Prescriptions: No Action rivaroxaban 20 mg tablet 20 mg PO DAILY Qty: 90 3RF Hold Instructions: Resume on 05/02/22. Rx Instructions: must administer with evening meal atorvastatin 10 mg tablet 10 mg PO DAILY Qty: 90 3RF lisinopril 5 mg tablet 5 mg PO DAILY Qty: 90 3RF timolol maleate 0.5 % gel forming solution 1 drp ophthalmic (eye) BID Discharge Instructions Stand Alone Forms: Post-op Topical Cataract, Maddie Gudino (DSU) DS: Diagnosis Discharge Diagnosis (1) Posterior subcapsular age-related cataract, right eye: Status: Resolved (2) Nuclear age-related cataract, right eye: Status: Resolved (3) Primary open angle glaucoma (POAG) of right eye, mild stage: Status: Chronic
--- NOTE | 2023-05-16 14:25 | ROE_ITS ---
Date of service: 05/16/23 Time of Service: 14:25 Operative Note Operative Note DATE OF PROCEDURE: 05/16/23 PRE-OP DIAGNOSIS: Nuclear/posterior subcapsular cataract, right eye Primary open-angle glaucoma, right eye, mild stage POST-OP DIAGNOSIS: same PROCEDURE: 1. Cataract extraction using phacoemulsification with intraocular lens implant, right eye 2. Insertion of anterior segment aqueous drainage device (Glaukos iStent inject ) into trabecular meshwork, right eye SURGEON: Jame Long ANESTHESIA TYPE: Local By Surgeon and MAC Refer to Anesthesia Record PATHOLOGY: none sent COMPLICATIONS: None Patient was transported to: same day Patient's condition: stable Implants: 1. Skyler CLareon CCA0T0 intraocular lens 2. Glaukos iStent inject trabecular micro-bypass stent Indications: 1. Progressive decreased vision due to cataract, right eye 2. Open angle glaucoma, right eye Procedure Description: CATARACT SURGERY OPERATIVE REPORT PREOPERATIVE DIAGNOSIS: Nuclear/posterior subcapsular cataract, right eye Primary open-angle glaucoma, right eye, mild stage POSTOPERATIVE DIAGNOSIS: Same OPERATION: 1. Cataract extraction using phacoemulsification with posterior chamber intraocular lens implant, right eye. 2. Insertion of anterior segment aqueous drainage device(Glaukos iStent inject) into trabecular meshwork, right eye IOL: IOL Clipper And Turner/Model: Skyler Clareon CCA0T0 IOL Power: + 20.5 diopters IOL Serial Number: [id number] Optic Diameter: 6.0mm Haptic/Overall Diameter: 13.0mm PHACO INFO: Skyler Pawngourion Vision System with OZil and Active Fluidics Cumulative Dispersed Energy (CDE): 18.5 seconds TRABECULAR MICRO-BYPASS STENT INFO: Glaukos iStent inject Reference Number: [id number] Serial Number: [id number] US [id number] SURGEON: Jame Long MD, ERI ANESTHESIA: Monitored Anesthesia Care (MAC), with local sub-tenon's anesthetic infiltration COMPLICATIONS: None SPECIMENS: None INDICATIONS FOR PROCEDURE: The patient is a 77-year-old gentleman with history of diminished visual acuity in his right eye secondary to the development of nuclear/posterior subcapsular cataract. He also has a history of primary open-angle glaucoma of the right eye, mild stage, with borderline control on 1 medication. He has been on multiple topical medications in the past that have been discontinued due to side effects and/or ineffectiveness. He now presents for cataract surgery in the right eye. The option of glaucoma stent procedure at the time of cataract surgery was offered to the patient and he wished to proceed with this as well. PROCEDURE: The correct surgical eye was identified and marked as the right eye and the pupil was dilated in the preoperative area using mydriatics and cycloplegics. The dilated pupil size was 6.0 mm. The patient elected to proceed without oral sedation. The patient was brought to the operating room where cardiopulmonary monitoring was instituted and surgical time-out was performed, confirming the correct operative eye and IOL power. Topical anesthesia was administered and ophthalmic povidone-iodine 5% was instilled into the conjunctival fornices. Lidocaine gel was applied to the cornea and the maty-ocular area was prepped with Betadine 10% solution and draped in the usual sterile fashion for intraocular surgery, including an aperture drape. A Tegaderm transparent film dressing was cut in half and used to cover the lashes and lid margins. Care was taken to sequester the lashes and lid margins under the Tegaderm dressing. A lid speculum was placed between the lids of the operative eye and the Skyler LuxOR Revalia operating microscope was maneuvered into position. Kelly scissors were then used to make a conjunctival buttonhole approximately 6mm posterior to the limbus in the inferonasal quadrant. Blunt dissection was carried out to expose bare sclera, and a blunt-tipped sub-tenon?s anesthesia cannula was introduced and passed posteriorly along the globe where non- preserved plain lidocaine was injected into posterior sub-Tenon?s space. A sideport knife was used to make a paracentesis port. VisionBlue was injected into the anterior chamber and allowed to sit for 15 to 20 seconds. Intraocular phenylephrine/lidocaine was injected into the anterior chamber. The anterior chamber was then filled with viscoelastic. A keratome knife was used to construct a 2-plane clear corneal tunnel extending 2.0mm into clear cornea. A flap was raised on the anterior capsule and capsulorhexis forceps were used to complete a continuous curvilinear capsulorhexis of 5.0 mm. Balanced salt solution was then used to perform cortical cleaving hydrodissection and nuclear hydrodelineation until the lens could be freely rotated within the capsular bag. The lens nucleus was then disassembled and removed within the capsular bag and iris plane using phacoemulsification. Residual cortical material was removed using the irrigation/aspiration handpiece. The posterior capsule was carefully polished to remove as much residual lens epithelial cells as safely possible. The capsular bag was then inflated and the anterior chamber deepened with cohesive viscoelastic. The lens implant described above was inserted into the capsular bag using the Skyler Autonome preloaded injector. A Kuglen hook was used to dial the IOL into position. The anterior chamber was then slightly over-filled with viscoelastic. The microsope and the patient's head were tilted into the ideal position for viewing of the anterior chamber angle. Viscoelastic was placed on the cornea followed by a surgical gonionlens, and the anterior chamber angle landmarks were identified. The [employer] iStent inject handpiece was introduced into the anterior chamber and the insertion sleeve was retracted once the injector was distal to the pupillary margin. The trocar was advanced through the central portion of the trabecular meshwork and into the back wall of Schlemm's canal in the inferonasal quadrant, with care taken to ensure the micro-insertion tube was perpendicular to the trabecular meshwork. The trabecular meshwork was lightly dimpled and the stent was injected with significant amount of hemorrhage in the anterior chamber angle resulting.. The same procedure was then performed in the superiornasal quadrant, however, the stent failed to deploy on the first 2 attempts, but deployed nicely on the third attempt. A moderate amount of hemorrhage through the stent apertures was noted. Cohesive viscoelastic was then used to clear the chamber angle, and the inferonasal stent was noted to be only partially embedded within the trabecular meshwork. The viscoelastic cannula was then used to lightly tap the stent and attempt to enhance the placement, but the stent came free of the trabecular meshwork. Capsulorhexis forceps were then used to remove the stent from the anterior chamber.. Both stents were then examined and noted to be in good position within the trabecular meshwork. The microscope and the patients head were returned to the normal coaxial position. Viscoelatic was then removed from the anterior chamber using the I/A handpiece. The lens implant was noted to center nicely within the capsular bag. The incisions were stromally hydrated, and the anterior chamber was reformed using BSS. Then 0.5cc of moxifloxacin 1.0mg/ml were injected into the capsular bag and anterior chamber. The incisions were checked with a Weck spear and found to be secure. Several drops of ophthalmic povidone-iodine 5% were then applied to the eye followed by two drops of Imprimis combination prednisolone/moxifloxacin/nepafenac solution. The drapes were removed and a clear plastic protective eye shield was placed over the eye. The patient was then returned to Same Day Surgery in stable condition.
--- NOTE | 2023-05-16 15:21 | W.ANESPOSTOP ---
Postoperative Evaluation Date, Time and Location Date Performed: 05/16/23 Time Performed: 14:22 Patient Location: Day Surgery Unit Vital Signs Most Recent Imported Vital Signs: Most Recent Vital Signs Temp Pulse Resp BP Pulse Ox 36.3 C L 61 16 145/65 H 99 05/16/23 14:16 05/16/23 14:16 05/16/23 14:16 05/16/23 14:16 05/16/23 14:16 Pain Score Most Recent Pain Score: Most Recent Pain Score Pain Level 0 05/16/23 14:16 Assessment Mental Status: Awake (Alert & Oriented to Patient Baseline) Airway and Respiratory Function: Patent airway with normal (patient baseline) respiratory exam Cardiovascular Function: Hemodynamically Stable Hydration Status: Adequately Hydrated Nausea & Vomiting: No Nausea or Vomiting Pain: Pt. Denies Any Pain Peripheral Nerve Block: Patient did not receive a nerve block
== END 2023-05-16 15:00 ==
LOC: SUR 11:08
PROVIDERS: PCP Family Medicine; Visit Provider Ophthalmology
PROC: (CPT 66991; principal; 2023-05-16 14:30)
DX: H25.041 Posterior subcapsular polar age-related cataract, right eye (principal); H25.11 Age-related nuclear cataract, right eye; H40.1111 Primary open-angle glaucoma, right eye, mild stage; I10 Essential (primary) hypertension; I48.91 Unspecified atrial fibrillation
CPT/HCPCS: 66991; V2632; C1783

== ENCOUNTER 2023-05-18 11:58 | Observation (INO) | payer MEDICARE, SELFPAY ==
[2023-05-18] VITALS (148 sets, daily range): BP systolic 112–160; BP diastolic 67–90; PULSE 49–68; RESP 11–26; TEMP 36.3–36.7; O2SAT 95–100
--- NOTE | 2023-05-18 12:20 | ED.GENADUL_ITS ---
Discharge Plan Disposition Patient Disposition: Admit to [facility] Discharge Details Clinical Impression: Right arm numbness, Macrocytosis without anemia Primary Care Provider: Camacho Barrera ED Provider: Micheal Prado Home Meds and New Rx's Prescriptions: No Action rivaroxaban 20 mg tablet 20 mg PO DAILY Qty: 90 3RF Hold Instructions: Resume on 05/02/22. Rx Instructions: must administer with evening meal atorvastatin 10 mg tablet 10 mg PO DAILY Qty: 90 3RF lisinopril 5 mg tablet 5 mg PO DAILY Qty: 90 3RF timolol maleate 0.5 % gel forming solution 1 drp ophthalmic (eye) BID Medical Decision Making This is an overall well-appearing hypertensive but normothermic and not tachycardic 77-year-old tmzdb-[id number] male with right hand and arm numbness concerning for the possibility of CVA versus TIA. His symptoms began approximately 48 hours ago and given his use of rivaroxaban and his reassuring neurological exam he is not a candidate for tPA. He has had no fevers nor nuchal rigidity to suggest meningitis so I do not feel he requires a lumbar puncture. He has had no convulsions nor history of seizures to suggest benefit from antiseizure medications. We will assess electrolytes, troponin to assess for cardiac injury, ECG and two-view chest x-ray. No chest pain to suggest aortic dissection. No nausea nor vomiting to suggest esophageal rupture. No sudden onset headache to suggest subarachnoid hemorrhage. Based on the patient's lack of aphasia neglect and arm weakness my suspicion was exceedingly low for large vessel occlusion so I did not obtain a CTA as I did not feel that the patient would be a thrombectomy candidate. If his CT head is reassuring we will plan on hospitalizing patient for MRI given his vascular risk factors of hypertension hyperlipidemia and his history of atrial fibrillation with recent cardioversion. No history of cervical rib to suggest thoracic outlet syndrome. No recent trauma to right upper extremity nor neck to suggest transient neuropraxia's secondary to brachial plexus insult. In his right upper extremity he has no weakness in his hand at the moment but he has reported clumsiness at home raises suspicion for central cause of his arm numbness. 2:05 PM Negative troponin. Basic metabolic panel with mild hyperglycemia. No NADEEM. No acute electrolyte abnormalities. CBC with macrocytosis but no anemia. No thrombocytopenia. CT head read as no acute new cortical or major vascular territory infarct. There were reportedly a few scattered sulcal calcifications for which radiology advises MR. I updated the patient that he would be hospitalized for MRI of his brain which I ordered. I also ordered an MR angio of his head and neck. We will reach out to the hospitalist with request for hospitalization. 2:57 PM I spoke with Dr. Ewing who graciously agreed to accept the patient for hospitalization. I updated patient on plan for hospitalization. We will provide him with a heart healthy diet. Given no documented CVA and rivaroxaban use will defer antiplatelet treatment at this point in time. HPI General Date/Time Provider Initiated Documentation: 05/18/23 12:08 . HPI Narrative: This is a 77-year-old gzqdr-sugt-gunaavrj male with history of atrial fibrillation on rivaroxaban and approximately 2 weeks status post cardioversion with approximately 48 hours of right hand numbness and reported intermittent clumsiness and weakness in his right upper extremity. He has never had similar symptoms in the past. He reports that he has intermittently felt unsteady on his feet. He has not had any headache. He has not taken any falls. He denies any specific trauma to his right upper extremity. He has a history of hypertension hyperlipidemia but denies history of diabetes. He has felt a pressure on the right side of his head over the past 2 days. He denies chest pain dysuria frequency nausea and vomiting. He does report that he has had surgery last week for cataracts. Related Data Home Medications Medication Instructions Recorded Confirmed atorvastatin 10 mg tablet 10 mg PO DAILY #90 tab-caps 10/10/22 05/16/23 lisinopril 5 mg tablet 5 mg PO DAILY #90 tabs 03/18/23 05/16/23 rivaroxaban 20 mg tablet 20 mg PO DAILY #90 tabs 04/14/23 05/16/23 timolol maleate 0.5 % eye gel 1 drp ophthalmic (eye) BID 05/08/23 05/16/23 forming solution Previous Rx's Medication Instructions Recorded atorvastatin 10 mg tablet 10 mg PO DAILY #90 tab-caps 10/10/22 lisinopril 5 mg tablet 5 mg PO DAILY #90 tabs 03/18/23 rivaroxaban 20 mg tablet 20 mg PO DAILY #90 tabs 04/14/23 Allergies Allergy/AdvReac Type Severity Reaction Status Date / Time venom-honey bee Allergy Severe HIVES Verified 05/16/23 12:16 [bee venom (honey bee)] TACHYCARDIA Penicillins Allergy Intermediate HIVES Verified 05/16/23 12:16 levetiracetam [From [facility]] AdvReac Severe leukopenia Verified 05/16/23 12:16 prednisone AdvReac Severe rectal Verified 05/16/23 12:16 bleeding and diarrhea aspirin AdvReac Intermediate Nosebleeds Verified 05/16/23 12:16 ceftriaxone AdvReac Intermediate Leukopenia Verified 05/16/23 12:16 simvastatin AdvReac Intermediate LEG PAIN Verified 05/16/23 12:16 DR MCLEOD SHRIMP Allergy Intermediate HIVES , Uncoded 05/15/23 10:47 NAUSEA General Stated Complaint: GenMedical PALOMA: 2 PFSH All Active Problems (Updated 05/18/23 @ 14:08 by Micheal Prado MD) Right arm numbness (Acute) Macrocytosis without anemia (Acute) Primary open angle glaucoma (POAG) of right eye, mild stage (Chronic) Cough (Acute) Tricuspid regurgitation (Acute) Beat, premature ventricular (Acute ~08/2022) 09/11/22 Cardiology 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 (Acute) Syncope (Chronic) Prolonged QT interval (Acute) Atrial tachycardia determined by electrocardiography (Acute) Internal hemorrhoids (Acute) Diabetes mellitus type II, controlled (Chronic) Blood glucose abnormal (Acute 11/03/14) Trigger middle finger of right hand (Acute 04/25/16) Abdominal aortic aneurysm (AAA) 3.0 cm to 5.5 cm in diameter in male (Chronic) Found in October 2018, needs to be rechecked every 3 years Pure hypercholesterolemia (Chronic 01/31/12) goal LDL<70 Metabolic syndrome X (Chronic 02/15/13) goal 215# 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 s/p stenting x 5 2010 or 2011 at [facility] b. presenting symptom was primarily fatigue Hypertension (Chronic) H/O: urinary stone (Chronic) Hx of colonic polyps (Chronic) Benign prostatic hypertrophy (Chronic) Atrial fibrillation (Chronic) [place] [facility] Medical History (Updated 05/18/23 @ 14:08 by Micheal Prado MD) Atrial fibrillation with RVR Surgical History R small trigger finger release (05/28/16) [place] S/P ablation of atrial fibrillation (10/2018) steriotactic brain bx (01/27/15) [facility] [place] bx brain abscess Family History Mother , HF at age 89. Heart disease Father , stroke HBP at age 90. Essential hypertension Brother , heart at age 82. No problems noted. Brother No problems noted. 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 Pets and animals: No Sexually active: Yes Do you think of yourself as: straight/heterosexual Current gender identity: male What is your relationship status?: How often do you talk on the phone with friends or family?: three or more times per week How often do you get together with friends or relatives?: three or more times per week Do you belong to any clubs or organized social groups?: yes Panel score (0-1 are the most socially isolated patients): 3 What type of physical activity do you participate in: none Cassidy/Synagogue: None Special cassidy needs: No Seatbelt use: always Drive intox or ride w/intox sprinkler driver: No Working smoke detector in home: Yes Fire extinguisher in home: Yes Carbon monox detector in home: Yes Do you feel safe at home: Yes Do you feel safe in your relationship?: Yes Exam Narrative Exam Narrative: General: Well-appearing in no acute distress speaking in complete sentences. Head: Normocephalic, atraumatic. Eye: Pupils equal, round reactive to light. Extraocular eye movements intact. No conjunctival injection. No scleral icterus. Ear, nose, mouth, throat: Right eye with medial subconjunctival hemorrhage. Normal voice, handling secretions normally. Neck: Trachea midline. Cardiovascular: Well-perfused distal extremities. Respiratory: Nonlabored respiration. Gastrointestinal: Nondistended abdomen. Musculoskeletal: No edema. Moving all 4 extremities spontaneously. Skin: Normal for age and race, grossly normal temperature and turgor. No acute rash. Neurologic: Alert and appropriate, GCS 15. Cranial nerves II through XII intact grossly. No dysmetria. No dysdiadochokinesia. Patient does have slightly diminished sensation throughout his right upper extremity which he reports that 75% compared to contralateral left upper extremity. Intact sensation and motor function in the right hand across the radian, median, and ulnar nerve distributions. No pronator drift. 5 out of 5 bilateral upper and lower extremity strength on flexion and extension at the elbows and dorsi and plantarflexion.NIH stroke scale 1 secondary to mild to moderate loss of sensation in right upper extremity. Psychiatric: Mood and manner are appropriate. Grooming and personal hygiene are appropriate. Course Vital Signs Vital signs: Vital Signs Temperature 36.5 C 05/18/23 12:04 Pulse 60 05/18/23 12:04 Respiratory Rate 16 05/18/23 12:04 Blood Pressure 160/86 H 05/18/23 12:04 Pulse Oximetry 99 05/18/23 12:04 Temperature 36.5 C 05/18/23 12:04 Temperature Source Skin 05/18/23 12:04 Pulse 60 05/18/23 12:04 Respiratory Rate 16 05/18/23 12:04 Blood Pressure 160/86 H 05/18/23 12:04 Blood Pressure Position Sitting 05/18/23 12:04 Pulse Oximetry 99 05/18/23 12:04 Oxygen Delivery Method Room Air 05/18/23 12:04 Oxygen Flow Rate 0 05/18/23 12:04
--- NOTE | 2023-05-18 12:30 | DI.RAD_ITS ---
Exam(s) XR CHEST 2V PA LATERAL EXAM: XR CHEST 2V PA LATERAL CLINICAL HISTORY: Right arm numbness. TECHNIQUE: 2D digital imaging was performed. COMPARISON: CR CHEST 2 VIEWS PA,LAT from 07/24/2018 CR XR CHEST 2V PA LATERAL from 03/31/2023 CR XR PORTABLE CHEST AP from 05/06/2023 FINDINGS: 2 views: Heart size unchanged. Mediastinum not widened. Interstitial pulmonary edema no longer evident. Mild increased density in left parahilar region note d. This may just be the normal vessels at this level but appears slightly more prominent than on corrine st x-ray of 07/24/2018. IMPRESSION: Slightly increased size left hilum. Recommend contrast infused CT scan follow-up to ensure that ther e is no mass in the left hilum. DATA REPOSITORY: RADIATION DOSE DELIVERED:
--- NOTE | 2023-05-18 12:30 | RT.EKG_ITS ---
APPROVED REPORT Exam: Resting ECG Reason for Exam: Right arm numbness Patient Location: E HR:61 bpm ECG Measurements Heart Rate 61 AXIS CA 174 P 31 QRSd 92 QRS 25 QT 448 T 137 QTc 444 Conclusion Sinus bradycardia...rate< 60 Atrial premature complex...SV complex w/ short R-R interval Low voltage, precordial leads...precordial leads <1.0mV Nonspecific T abnrm, anterolateral leads...T <-0.10mV, I aVL V2-V6 Narrow complex sinus bradycardia at a rate of 61. Normal axis. T wave inversions V2 and V3 along wi th aVL. Compared to prior dated earlier this month sinus bradycardia has replaced atrial fibrillatio n. No ST segment abnormalities. No acute injury pattern.
--- NOTE | 2023-05-18 13:03 | DI.CT_ITS ---
Exam(s) CT HEAD WO EXAM: CT HEAD WO CLINICAL HISTORY: Right arm numbness. TECHNIQUE: Imaging Protocol: Axial computed tomography images with coronal and sagittal reformatted images were created and reviewed COMPARISON: CT CT HEAD WO from 06/20/[address] HEAD CERV SPINE FACIAL WO from 04/19/2022 FINDINGS: There are no skull fractures. There is no fluid in the visualized paranasal sinuses. Mild mucosal th ickening in the right maxillary sinus noted. There is no evidence of intracranial hemorrhage, mass effect, or shift of midline structures. There are no extra-axial fluid collections. The ventricles are not enlarged or shifted and there is no blo od within the ventricular system nor within the basal cisterns. Vascular calcifications noted at the skull base in the internal carotid arteries and vertebral arteri es. There is an area of abnormal hypodensity in the high right parietal white matter which is unchan ged from 04/19/2022 are probably related to prior ischemic event at this level. This is also unchang ed from prior CT scan of 2018. IMPRESSION: No acute intracranial findings on this noninfused CT scan of the brain. 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 Clinically indicated follow-up MRI with diffusion imaging can be performed. RADIATION DOSE DELIVERED: 882.41mGy.cm Total DLP DATA REPOSITORY: All CT scans at this facility are submitted to the National Radiology Data Registry (NRDR) Dose Index Registry (DIR) with the [employer] (ACR). RADIATION OPTIMIZATION: All CT scans at this facility use at least one of these dose optimization te chniques: automated exposure control; mA and/or kV adjustment per patient size (includes targeted exa ms where dose is matched to clinical indication); or iterative reconstruction.
[2023-05-18 13:05] LABS: Abs Immature Grans 0.02 10^3/uL (0.0-0.06); Absolute Basophil Count 0.05 10^3/uL (0.0-0.2); Absolute Eosinophil Count 2.17 10^3/uL (0.0-0.7); Absolute Lymphocyte Count 1.41 10^3/uL (1.2-3.4); Absolute Monocyte Count 0.54 10^3/uL (0.1-0.8); Absolute Neutrophil Count 4.68 10^3/uL (1.2-6.7); Basophils % 0.6; Eosinophils % 24.5; HCT 44.2 % (40.0-50.0); HGB 14.7 g/dL (13.5-17.5); Immature Grans % 0.2; Lymphocytes % 15.9; MCH 32.2 pg (27.0-33.0); MCHC 33.3 % (32.0-36.0); MCV 97 fL (80-95); MPV 10.8 fL (8.0-11.0); Monocytes % 6.1; Neutrophils % 52.7; Platelet Count 249 10^3/uL (130-400); RBC 4.56 10^6/uL (4.36-5.78); RDW 13.9 % (11.8-14.1); RDW-SD 49.8 fL; WBC 8.87 10^3/uL (4.4-10.8)
[2023-05-18 13:17] LABS: Diff Comment Diff Reviewed; RBC Morphology Normal
[2023-05-18 13:20] LABS: BUN 14 mg/dL (7-18); CREATININE 0.9 mg/dL (0.70-1.30); Calcium 9.6 mg/dL (8.5-10.1); Chloride 107 mmol/L (98-107); Estimated GFR 87.96 (mL/min/1.73m2); Glucose 116 mg/dL (74-106); Sodium 143 mmol/L (136-145); Troponin I < 50 ng/L (<or=60)
--- NOTE | 2023-05-18 13:38 | DI.VRAD_ITS ---
PROCEDURE INFORMATION: Exam: XR Chest Exam date and time: 05/18/2023 1:03 PM Age: 77 years old Clinical indication: Other: Right arm numbness TECHNIQUE: Imaging protocol: Radiologic exam of the chest. Views: 2 views. COMPARISON: CR XR PORTABLE CHEST AP 05/06/2023 9:01 AM FINDINGS: Lungs: There has been improvement in vascular congestion when compared with the patient's prior exam. There may be minimal residual basilar atelectasis. There is no new lobar consolidation or CHF Pleural spaces: A large pleural effusion, or pneumothorax is not seen Heart/Mediastinum: Heart, mediastinum are unchanged Bones/joints: Degenerative changes are seen in the spine. There is no acute bony abnormality IMPRESSION: Improvement in vascular congestion seen on the prior exam. No lobar consolidation or CHF. Possible minimal basilar atelectasis Dictated and Authenticated by: Danuta Ward MD. Ordering:ROBERT Burton MD
--- NOTE | 2023-05-18 13:45 | DI.VRAD_ITS ---
PROCEDURE INFORMATION: Exam: CT Head Without Contrast Exam date and time: 05/18/2023 1:00 PM Age: 77 years old Clinical indication: Numbness / parasthesia; Right; Patient HX: No HX stroke TECHNIQUE: Imaging protocol: Computed tomography of the head without contrast. Radiation optimization: All CT scans at this facility use at least one of these dose optimization techniques: automated exposure control; mA and/or kV adjustment per patient size (includes targeted exams where dose is matched to clinical indication); or iterative reconstruction. COMPARISON: CT HEAD CERV SPINE FACIAL WO 04/19/2022 3:55 AM FINDINGS: Brain: There is no new hemorrhage , mass or shift. There is tissue loss/encephalomalacia involving the right frontal cortex, subcortical white matter at the right frontal convexity also previously noted. This is deep to the right frontal merritt hole. There are a few scattered sulcal calcifications in both cerebral hemispheres including the cerebral hemisphere/left MCA distribution, presumably vascular in location. Findings could be related to calcific emboli. There is a calcification noted in the vicinity of the left central sulcus for example best seen on image 247 series 5. However no definite acute cortical or major vascular territory infarct is identified. There are no new extra-axial collections. There is no new mass, shift or herniation. Cerebral ventricles: Ventricular size is stable. There is no significant hydrocephalus. Paranasal sinuses: There is no new sinus opacification or fluid level. There is mild sinus mucoperiosteal thickening Mastoid air cells: There is no new mastoid or middle ear opacification Bones/joints: There is no new bony abnormality. There is an old right frontal merritt hole. Soft tissues: No new subcutaneous abnormality IMPRESSION: No definite new cortical or major vascular territory infarct. There are a few scattered sulcal calcifications presumably vascular in location noted bilaterally . To better evaluate for the presence of recent, acute or subacute ischemic change MR correlation recommended if possible. Dictated and Authenticated by: Danuta Ward MD. Ordering:ROBERT Burton MD
--- NOTE | 2023-05-18 15:09 | HPE_ITS ---
Date of service: 05/18/23 Time of Service: 15:09 Assessment and Plan Assessment and plan (1) Right arm numbness: Status: Acute Assessment and plan: referred to observation to r/o CVA plan MRI tomorrow telemetry monitoring fully anticoagulated (2) Atrial fibrillation: Status: Chronic Assessment and plan: recent cardioversion rate controlled continue home medications, anticoagulated (3) Primary open angle glaucoma (POAG) of right eye, mild stage: Status: Chronic Assessment and plan: continue home eye drops (4) Diabetes mellitus type II, controlled: Status: Chronic Assessment and plan: Diet controlled. Continue carb consistent diet and cover with SSI. (5) Coronary disease: Status: Chronic Assessment and plan: No evidence of ACS on this admission. Continue atorvastatin, alis-i, BB. ?is the patient on aspirin. (6) DVT prophylaxis: Status: Deleted Assessment and plan: Continue therapeutic rivoraxaban (7) Discharge planning issues: Status: Deleted Assessment and plan: Full code Anticipate discharge home tomorrow after cardioversion discussed with DR Ewing History of Present Illness History of Present Illness Chief Complaint: right upper ext Narrative: This is a 77-year-old [id number] male with history of atrial fibrillation on rivaroxaban and approximately 2 weeks status post cardioversion with approximately over 48 hours of right hand numbness and reported intermittent clumsiness and weakness in his right upper extremity.? No similar symptoms in the past.? He reports that he has intermittently felt unsteady on his feet.? He has not had any headache or visual changes.? He has not taken any falls.? He denies any specific trauma to his right upper extremity.?He does report chronic rotator cuff injury on that arm that has previously been examined by orthopedics and he has decided to treat conservatively. He denies recent injury to the shoulder. Review of Systems All systems reviewed & are unremarkable except as noted in HPI and below PFSH All Active Problems (Updated 05/18/23 @ 14:08 by Micheal Prado MD) Right arm numbness (Acute) Macrocytosis without anemia (Acute) Primary open angle glaucoma (POAG) of right eye, mild stage (Chronic) Cough (Acute) Tricuspid regurgitation (Acute) Beat, premature ventricular (Acute ~08/2022) 09/11/22 Cardiology 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 (Acute) Syncope (Chronic) Prolonged QT interval (Acute) Atrial tachycardia determined by electrocardiography (Acute) Internal hemorrhoids (Acute) Diabetes mellitus type II, controlled (Chronic) Blood glucose abnormal (Acute 11/03/14) Trigger middle finger of right hand (Acute 04/25/16) Abdominal aortic aneurysm (AAA) 3.0 cm to 5.5 cm in diameter in male (Chronic) Found in October 2018, needs to be rechecked every 3 years Pure hypercholesterolemia (Chronic 01/31/12) goal LDL<70 Metabolic syndrome X (Chronic 02/15/13) goal 215# 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 s/p stenting x 5 2010 or 2011 at [facility] b. presenting symptom was primarily fatigue Hypertension (Chronic) H/O: urinary stone (Chronic) Hx of colonic polyps (Chronic) Benign prostatic hypertrophy (Chronic) Atrial fibrillation (Chronic) 10/09/20 [facility] [place] Cardiology Medical History (Updated 05/18/23 @ 14:08 by Micheal Prado MD) Atrial fibrillation with RVR Surgical History R small trigger finger release (05/28/16) [place] S/P ablation of atrial fibrillation (10/2018) steriotactic brain bx (01/27/15) [facility] [place] Family History Mother , HF at age 89. Heart disease Father , stroke HBP at age 90. Essential hypertension Brother , heart at age 82. No problems noted. Brother No problems noted. 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 Pets and animals: No Sexually active: Yes Do you think of yourself as: straight/heterosexual Current gender identity: male What is your relationship status?: How often do you talk on the phone with friends or family?: three or more times per week How often do you get together with friends or relatives?: three or more times per week Do you belong to any clubs or organized social groups?: yes Panel score (0-1 are the most socially isolated patients): 3 What type of physical activity do you participate in: none Cassidy/Caodaism: None Special cassidy needs: No Seatbelt use: always Drive intox or ride w/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: No Working smoke detector in home: Yes Fire extinguisher in home: Yes Carbon monox detector in home: Yes Do you feel safe at home: Yes Do you feel safe in your relationship?: Yes Meds Allergies and Home Medications Allergies Allergy/AdvReac Type Severity Reaction Status Date / Time venom-honey bee Allergy Severe HIVES Verified 05/16/23 12:16 [bee venom (honey bee)] TACHYCARDIA Penicillins Allergy Intermediate HIVES Verified 05/16/23 12:16 levetiracetam [From [facility]] AdvReac Severe leukopenia Verified 05/16/23 12:16 prednisone AdvReac Severe rectal Verified 05/16/23 12:16 bleeding and diarrhea aspirin AdvReac Intermediate Nosebleeds Verified 05/16/23 12:16 ceftriaxone AdvReac Intermediate Leukopenia Verified 05/16/23 12:16 simvastatin AdvReac Intermediate LEG PAIN Verified 05/16/23 12:16 DR MCLEOD SHRIMP Allergy Intermediate HIVES , Uncoded 05/15/23 10:47 NAUSEA Home Medications Medication Instructions Recorded Confirmed Type atorvastatin 10 mg tablet 10 mg PO DAILY #90 tab-caps 10/10/22 05/18/23 Rx lisinopril 5 mg tablet 5 mg PO DAILY #90 tabs 03/18/23 05/18/23 Rx rivaroxaban 20 mg tablet 20 mg PO DAILY #90 tabs 04/14/23 05/18/23 Rx timolol maleate 0.5 % eye gel 1 drp ophthalmic (eye) BID 05/08/23 05/18/23 History forming solution brimonidine 0.1 % eye drops 1 drp ophthalmic (eye) BID 05/18/23 05/18/23 History (Alphagan P) prednisolone 1 %-moxifloxacin 0.5 1 drp ophthalmic (eye) BID 05/18/23 05/18/23 History %-nepafenac 0.1 % eye drops,susp Exam Const General: cooperative, healthy appearing, comfortable and no acute distress Nutritional Appearance: average body habitus Orientation: alert, awake and oriented x3 HENMT Head: normal to inspection, normocephalic and atraumatic Face and sinus: normal facial exam Mouth: oral mucosae normal Eyes Alignment and Position: alignment normal Periorbital: periorbital findings normal Eyelids: eyelids normal Conjunctivae: conjunctivae normal Sclera: scleral abnormality right (since surgery no pain) hemorrhage Cornea: corneas normal Pupils: PERRL EOM: EOM intact bilaterally Chest Chest: normal inspection of the chest Resp Effort & Inspection: normal respiratory effort Auscultation: clear to auscultation bilaterally Cardio Rate: regular rate Rhythm: regular rhythm GI Inspection: normal to inspection Skin General skin exam: no rashes or lesions noted Neuro General: patient alert, patient awake and patient oriented x3 Cranial Nerves: CN's II-XI intact bilaterally Cognition: normal cognition Speech: speech normal Gait: normal gait Motor: muscle tone normal throughout, strength 5/5 throughout and no tremors Sensory Exam: no sensory deficits noted Extrem General: normal to inspection Right upper extremity: normal to inspection Results Labs 05/18/23 12:34 05/18/23 12:34 Labs: Laboratory Results - last 24 hr 05/18/23 05/18/23 12:34 12:34 WBC 8.87 RBC 4.56 Hgb 14.7 Hct 44.2 MCV 97 H MCH 32.2 MCHC 33.3 RDW 13.9 Plt Count 249 MPV 10.8 Immature Gran % 0.2 Neutrophils % 52.7 Lymphocytes % 15.9 Monocytes % 6.1 Eosinophils % 24.5 Basophils % 0.6 Nucleated RBC % 0.0 Absolute Neutrophils 4.68 Absolute Lymphocytes 1.41 Absolute Monocytes 0.54 Absolute Eosinophils 2.17 H Absolute Basophils 0.05 RBC Morphology Normal Sodium 143 Potassium 4.0 Chloride 107 Carbon Dioxide 28.0 Anion Gap 8.0 BUN 14 Creatinine 0.9 Est GFR (CKD-EPI 2020) 87.96 Glucose 116 H Calcium 9.6 Troponin I < 50 Last Vital Signs Temp 36.5 C 05/18/23 12:04 Pulse 52 L 05/18/23 15:01 Resp 13 05/18/23 15:01 BP 148/74 H 05/18/23 15:01 Pulse Ox 100 05/18/23 15:00 Time Spent Time spent with Patient: 40-54 minutes Time was spent: preparing to see the patient(eg.review tests), obtaining and/or reviewing separately otained hiistory, ordering medications,tests, procedures, indepentently interpreting results and counseling the patient
[2023-05-18] MEDS: Rivaroxaban 10 MG TABLET 20 MG PO (22:48)
[2023-05-18] MEDS: Atorvastatin 10 MG TAB PO (22:48)
[2023-05-19 02:18] VITALS: BP 157/89; PULSE 58; RESP 16; TEMP 36.6; O2SAT 98
[2023-05-19 07:22] VITALS: BP 130/73; PULSE 60; RESP 16; TEMP 36.2; O2SAT 99
--- NOTE | 2023-05-19 08:00 | DI.MRI_ITS ---
Exam(s) MR ANGIO NECK WO EXAM: MR ANGIO NECK WO CLINICAL HISTORY: intermittent RUE numbness/weakness. TECHNIQUE: 2D and 3D [id number] MRA of the Neck was performed. COMPARISON: No exams were available for comparison FINDINGS: Common Carotid: Right: No dissection, occlusion or significant stenosis. Left: No dissection, occlusion or significant stenosis. External Carotid: Right: No evidence of occlusion or significant stenosis. Left: No evidence of occlusion or significant stenosis. Internal Carotid: Right: Severe stenosis proximally over approximate 10 mm length. No dissection.. Left: No dissection, occlusion or significant stenosis. Vertebral Artery: Right: Extremely diminutive. Left: Dominant. No dissection, occlusion or significant stenosis. The visualized paraspinal soft tissues are unremarkable. 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 The right vertebral artery is diminutive. DATA REPOSITORY:
[2023-05-19] MEDS: Lisinopril 5 MG TAB PO (08:07)
[2023-05-19 08:14] VITALS: PULSE 63
[2023-05-19] MEDS: Doxycycline Hyclate 100 MG CAP 200 MG PO (10:16)
--- NOTE | 2023-05-19 10:49 | PDOC.CMIN ---
Date of service: 05/19/23 Time of Service: 10:49 Care Management Initial Assmt Initial Assessment REASON FOR HOSPITALIZATION:: TIA PREVIOUS FUNCTIONAL STATUS/SOCIAL/FAMILY SUPPORTS:: Tomas lives in [facility] with his , Kisha. Their son, Amadeo, lives nearby. 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 ADVANCE DIRECTIVES:: On file, his , Kisha, is listed as HCA. Has patient been provided with info about the portal/API?: Yes Did the patient sign up for the portal?: Yes CODE STATUS:: Full Code INSURANCE COVERAGE / FINANCIAL ISSUES:: VBA PRIMARY CARE PHYSICIAN:: Camacho Barrera POTENTIAL DISCHARGE NEEDS:: Evaluations for further needs, follow up appointments, may require new medications. PATIENT/FAMILY EDUCATION NEEDS:: Review discharge instructions and limitations, discussion of self care needs including ask me three. ANTICIPATED BARRIERS TO DISCHARGE:: None identified. TRANSPORTATION:: Via private vehicle by family. PLAN:: Anticipate Tomas will return home once medically cleared. His will drive him home via private vehicle. He will follow up with his PCP and discharge plan of care. CM will continue to follow. PFSH All Active Problems (Updated 05/18/23 @ 14:08 by Micheal Prado MD) Right arm numbness (Acute) Macrocytosis without anemia (Acute) Primary open angle glaucoma (POAG) of right eye, mild stage (Chronic) Cough (Acute) Tricuspid regurgitation (Acute) Beat, premature ventricular (Acute ~08/2022) 09/11/22 Cardiology 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 (Acute) Syncope (Chronic) Prolonged QT interval (Acute) Atrial tachycardia determined by electrocardiography (Acute) Internal hemorrhoids (Acute) Diabetes mellitus type II, controlled (Chronic) Blood glucose abnormal (Acute 11/03/14) Trigger middle finger of right hand (Acute 04/25/16) Abdominal aortic aneurysm (AAA) 3.0 cm to 5.5 cm in diameter in male (Chronic) Found in October 2018, needs to be rechecked every 3 years Pure hypercholesterolemia (Chronic 01/31/12) goal LDL<70 Metabolic syndrome X (Chronic 02/15/13) goal 215# 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 s/p stenting x 5 2010 or 2011 at [facility] [place] b. presenting symptom was primarily fatigue Hypertension (Chronic) H/O: urinary stone (Chronic) Hx of colonic polyps (Chronic) Benign prostatic hypertrophy (Chronic) Atrial fibrillation (Chronic) 10/09/20 [facility] [place] [facility] [place] Cardiology Medical History (Updated 05/18/23 @ 14:08 by Micheal Prado MD) Atrial fibrillation with RVR Surgical History R small trigger finger release (05/28/16) [place] S/P ablation of atrial fibrillation (10/2018) steriotactic brain bx (01/27/15) [facility] [place] bx brain abscess Family History Mother , HF at age 89. Heart disease Father , stroke HBP at age 90. Essential hypertension Brother , heart at age 82. No problems noted. Brother No problems noted. 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: Retired [employer] Pets and animals: No Sexually active: Yes Do you think of yourself as: straight/heterosexual Current gender identity: male What is your relationship status?: How often do you talk on the phone with friends or family?: three or more times per week How often do you get together with friends or relatives?: three or more times per week Do you belong to any clubs or organized social groups?: yes Panel score (0-1 are the most socially isolated patients): 3 What type of physical activity do you participate in: none Cassidy/Restoration: None Special cassidy needs: No Seatbelt use: always Drive intox or ride w/intox regional 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 Readmission Within the Past 30 Days Yes or No: Yes Date of First Admission Date of 1st Admission: 05/06/23 Date of this Admission Date of Admission: 05/15/23 Speicalist Appointments Have you seen any other specialist since your 1st Admission?: Yes Date you saw the Specialist: 05/16/23 Specialist Seen: Jame Long MD (cataracts, glaucoma) Assessment for Readmission Summary of readmission circumstances, based upon interviews: Scheduled with PCP appointment 05/22/23 Returns with TIA
[2023-05-19 11:26] VITALS: BP 128/79; PULSE 58; RESP 18; TEMP 36.4; O2SAT 97
--- NOTE | 2023-05-19 14:27 | DI.MRI_ITS ---
Exam(s) MR ANGIO BRAIN WO CLINICAL HISTORY: Right upper extremity numbness. TECHNIQUE: 3D [id number] study was performed without contrast. COMPARISON: None. FINDINGS: Carotid Arteries: Petrous: Normal. Cavernous: Normal. Cerebral: Normal. Middle Cerebral Arteries: Right: No aneurysm or significant stenosis. Left: No aneurysm or significant stenosis. Anterior Cerebral Arteries: Right: No aneurysm or significant stenosis. Left: Focal area of stenosis of the A1 segment just after the origin from the internal carotid artery versus flow artifact. No aneurysm . Posterior cerebral arteries: Right: No aneurysm or significant stenosis Left: No aneurysm or significant stenosis Vertebral Arteries: Right: No aneurysm or significant stenosis. No dissection. Left: No aneurysm or significant stenosis. No dissection.. Basilar Artery: No aneurysm or significant stenosis. Small Vessels: No evidence of beading. IMPRESSION: Focal area of stenosis versus flow artifact at the proximal left A1 segment. DATA REPOSITORY:
--- NOTE | 2023-05-19 14:27 | DI.MRI_ITS ---
Exam(s) MR BRAIN WO EXAM: MR BRAIN WO CLINICAL HISTORY: Right upper extremity numbness TECHNIQUE: Multiplanar multisequence MRI of the brain was performed. COMPARISON: CT CT HEAD WO from 05/18/2023 FINDINGS: VENTRICLES AND EXTRA AXIAL SPACES: Normal in size and morphology for the patient's age. MIDLINE SHIFT: None. CEREBRAL PARENCHYMA: There are few tiny foci of restricted diffusion seen in the high left frontal pa rietal region. No space-occupying lesion identified. There is an old infarct seen in the high right parietal region. Ylnk-gi-lgpmizbe atrophy. HEMORRHAGE: None. BRAINSTEM/CEREBELLUM: Normal. VISUALIZED PARANASAL SINUSES/MASTOIDS:Mild sinus mucosal thickening. Vasculature: Normal flow void. PITUITARY GLAND: Unremarkable. ORBITS: Unremarkable. IMPRESSION: There are few tiny foci of restricted diffusion in the high left frontal parietal region with tiny ac jackson infarcts. 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 DATA REPOSITORY:
[2023-05-19 15:27] VITALS: BP 126/72; PULSE 60; RESP 18; TEMP 36.6; O2SAT 98
--- NOTE | 2023-05-19 15:31 | W.NEUROCONSU ---
Date of service: 05/19/23 Time of Service: 15:32 Assessment and Plan Assessment and plan (1) Ischemic stroke: Status: Acute (2) Carotid stenosis, bilateral: Status: Acute (3) Atrial fibrillation: Status: Chronic (4) Occlusion of right vertebral artery: Status: Acute Assessment and plan: #1. Left frontal punctate ischemia manifested by R hand/arm weakness, secondary to L carotid stenosis. He has known atrial fibrillation already on rivaroxaban 20mg daily. Work-up: -A1c -Lipid panel Medications: -aspirin 81mg daily for secondary stroke prevention -rivaroxaban 20mg daily for stroke prevention from atrial fibrillation -atrovastatin 80mg daily for secondary stroke prevention - titrate at d/c for goal LDL <70 Other: -Allow permissive hypertension -Occupation therapy for upper extremity weakness, activities of daily living -stat vascular surgery consult for symptomatic L carotid stenosis. #2. Incidental finding of severe R carotid stenosis. Medications as above with good BP control Recommend referral to vascular surgery. #3. Incidental finding of ? R vertebral artery occlusion. Medication as above. He should f/up in the neurology clinic in 4-6 weeks. History of Present Illness History of Present Illness Chief Complaint: stroke Narrative: Handedness: right. HPI: Mr. Flores is a 77 year-old with hypertension, hyperlipidemia, DM2, atrial fibrillation s/p cardioversion ~2wk ago on Xarelto 20mg daily, glaucoma, heart disease, BPH, and prior R frontal brain abscess. Mr. Flores was admitted 05/18/23 with ~48hr of R arm and hand weakness and loss of dexterity. He underwent the work-up below and was found to have an ischemic stroke. He has been continued on Xarelto and atorvastatin was increased to 80mg at admission (from 10mg daily as an outpatient). He notes improvement in strength to 80% of baseline. Of note, he underwent R cataract surgery on 05/16/23 complicated by impaired vision in which fluid had to be drained from they x3 on 05/17/23. Work-up: -CTH (05/18/23): R frontal hypodensity c/w with patient's known history of prior abscess. No acute findings. I reviewed these images personally and this is my personal interpretation. -MRI brain w/o (05/19/23): 3 scattered foci of ischemia in the L frontal lobe. Encephalomalacia in R frontal lobe s/p abscess/biopsy. I reviewed these images personally and this is my personal interpretation. -MRA head/neck (05/19/23): Severe R and moderate L carotid stenosis. ?R vertebral occlusion. I reviewed these images personally and this is my personal interpretation. -TTE (01/14/23): EF 55-60%, no wall motion abnormalities. LA mildly dilated. Review of Systems All systems reviewed & are unremarkable except as noted in HPI and below PFSH All Active Problems (Updated 05/19/23 @ 20:55 by Elena Lindsay MD) Occlusion of right vertebral artery (Acute) Carotid stenosis, bilateral (Acute) Ischemic stroke (Acute) Right arm numbness (Acute) Macrocytosis without anemia (Acute) Primary open angle glaucoma (POAG) of right eye, mild stage (Chronic) Cough (Acute) Tricuspid regurgitation (Acute) Beat, premature ventricular (Acute ~08/2022) 09/11/22 Cardiology 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 (Acute) Syncope (Chronic) Prolonged QT interval (Acute) Atrial tachycardia determined by electrocardiography (Acute) Internal hemorrhoids (Acute) Diabetes mellitus type II, controlled (Chronic) Blood glucose abnormal (Acute 11/03/14) Trigger middle finger of right hand (Acute 04/25/16) Abdominal aortic aneurysm (AAA) 3.0 cm to 5.5 cm in diameter in male (Chronic) Found in October 2018, needs to be rechecked every 3 years Pure hypercholesterolemia (Chronic 01/31/12) goal LDL<70 Metabolic syndrome X (Chronic 02/15/13) goal 215# 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 s/p stenting x 5 2010 or 2011 at [facility] b. presenting symptom was primarily fatigue Hypertension (Chronic) H/O: urinary stone (Chronic) Hx of colonic polyps (Chronic) Benign prostatic hypertrophy (Chronic) Atrial fibrillation (Chronic) 10/09/20 [facility] [place] [facility] Medical History Atrial fibrillation with RVR Surgical History R small trigger finger release (05/28/16) [place] S/P ablation of atrial fibrillation (10/2018) steriotactic brain bx (01/27/15) [facility] [place] bx brain abscess Family History Mother , HF at age 89. Heart disease Father , stroke HBP at age 90. Essential hypertension Brother , heart at age 82. No problems noted. Brother No problems noted. 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 Pets and animals: No Sexually active: Yes Do you think of yourself as: straight/heterosexual Current gender identity: male What is your relationship status?: How often do you talk on the phone with friends or family?: three or more times per week How often do you get together with friends or relatives?: three or more times per week Do you belong to any clubs or organized social groups?: yes Panel score (0-1 are the most socially isolated patients): 3 What type of physical activity do you participate in: none Cassidy/Druze: None Special cassidy needs: No Seatbelt use: always Drive intox or ride w/intox rolloff 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 81 Mg Tabec PO DAILY [facility] Atorvastatin Calcium 40 mg 05/19/23 20:00 Atorvastatin 40 Mg Tab PO QPM [facility] Dimethicone/Zinc Oxide 0 gm 05/18/23 15:07 Guille Protect Cream 142 Gm Tube TP PRN PRN Lisinopril 5 mg 05/19/23 08:30 05/19/23 08:07 Lisinopril 5 Mg Tab PO 5 mg DAILY POPPY Administration Non-Formulary Medication 1 drp 05/18/23 20:00 Brimonidine [Alphagan P] OP BID [facility] Non-Formulary Medication 1 drp 05/18/23 20:00 Timolol Maleate OP BID [facility] Rivaroxaban 20 mg 05/18/23 22:30 05/18/23 22:48 Rivaroxaban 10 Mg Tablet PO 20 mg HS POPPY Administration Allergies venom-honey bee [bee venom (honey bee)] Allergy (Severe, Verified 05/16/23 12:16) HIVES TACHYCARDIA Penicillins Allergy (Intermediate, Verified 05/16/23 12:16) HIVES levetiracetam [From Kera] Adverse Reaction (Severe, Verified 05/16/23 12:16) leukopenia prednisone Adverse Reaction (Severe, Verified 05/16/23 12:16) rectal bleeding and diarrhea aspirin Adverse Reaction (Intermediate, Verified 05/16/23 12:16) Nosebleeds ceftriaxone Adverse Reaction (Intermediate, Verified 05/16/23 12:16) Leukopenia simvastatin Adverse Reaction (Intermediate, Verified 05/16/23 12:16) LEG PAIN DR MCLEOD SHRIMP Allergy (Intermediate, Uncoded 05/15/23 10:47) HIVES , NAUSEA Exam Narrative Exam Narrative: Physical Exam: Gen: Patient of apparent stated age, NAD Head and face: no facial or cranial abnormalities Neck: Supple, no meningismus, no occipital tenderness CV: + S1, S2, RRR, no murmur Resp: CTA B/L Abd: soft, nontender, nondistended Ext: No edema. No clubbing or cyanosis. No bony deformity. Neuro Exam: Language: fluency, naming, repetition, and comprehension intact; Mental Status: AAOx3, current events intact, fund of knowledge intact; Speech: no dysarthria Cranial nerves: CN II: visual jones intact CN III, IV, : extraocular movements intact, no nystagmus, pupils symmetric and reactive to light CN V: face sensation intact to LT and PP CN VII: no facial asymmetry noted CN VIII: hearing intact bilaterally CN IX, X: palate rises symmetrically CN XI: trapezius/SCM 5/5 bilaterally CN XII: protrudes tongue symmetrically Sensory: intact to LT, PP in all extremities Motor: bulk and tone intact. Fine motor movements intact bilaterally. Subtle R pronator drift. Strength 5/5 throughout including the deltoids, biceps, triceps, wrist extensors, hip flexors, knee flexors, knee extensors, ankle flexors, and ankle extensors. Reflexes: 2+ at the biceps, triceps, brachioradialis, patella, and achilles tendons bilaterally; toes down going bilaterally; Coordination: FTN and HTS intact bilaterally Gait: not seen Results Last Vital Signs Temp 97.9 F 05/19/23 15:27 Pulse 60 05/19/23 15:27 Resp 18 05/19/23 15:27 BP 126/72 05/19/23 15:27 Pulse Ox 98 05/19/23 15:27 Labs 05/18/23 12:34 05/18/23 12:34
--- NOTE | 2023-05-19 16:31 | DSE_ITS ---
Date of service: 05/19/23 Time of Service: 16:31 DS: Diagnosis Discharge Diagnosis (1) Ischemic stroke: Status: Acute (2) Carotid stenosis, bilateral: Status: Acute (3) Occlusion of right vertebral artery: Status: Acute (4) Atrial fibrillation: Status: Chronic (5) Primary open angle glaucoma (POAG) of right eye, mild stage: Status: Chronic (6) Diabetes mellitus type II, controlled: Status: Chronic (7) Coronary disease: Status: Chronic Discharge Plan Disposition Patient Disposition: Home Condition: Improving Discharge Details Reason For Visit: TIA Admit Date/Time: 05/18/23 15:07 Admit Provider: Liliana Ewing Attending Provider: Liliana Ewing Primary Care Provider: Camacho [facility] Hospital Course Hospital Course: This is a 77-year-old male patient with a history of atrial fibrillation anticoagulated on Xarelto hypertension hyperlipidemia, prior right frontal brain abscess who presented to the emergency department at [facility] with greater than 48 hours of right-handed weakness. He states he noted his symptoms possibly Friday night and continued to have symptoms that came and went so finally presented to the emergency department for evaluation. He denied any headache visual disturbance leg weakness or other symptoms. He denies any similar history his work-up in the emergency department included a head CT which showed no acute findings. He was admitted to the hospitalist service for further evaluation and underwent an MRI of the brain and MRA of the head and neck which did show evidence of ischemia in his left frontal lobe and severe right and moderate left carotid stenosis with a question of a right vertebral occlusion. His ec hocardiogram showed an ejection fraction of 55 to 60% with no wall motion abnormalities and his left atrium was mildly dilated. His symptoms slowly improved while hospitalized but he still was a little clumsy with that right hand. He was evaluated by neurology with recommendations for the addition of aspirin to his rivaroxaban and increase atorvastatin to high intensity therapy. He will be followed up outpatient in the neurology clinic. He will be referred outpatient to occupational medicine for his right hand weakness. He will also be referred to vascular surgery at [facility] for further evaluation and recommendations regarding his carotid stenosis. He is stable with symptoms slightly improving with stable vital signs heart rate in the 60s sinus rhythm and blood pressure 120 over 70s. He has no new complaints and will be discharged to home with close outpatient follow-up and further management. Discharge is discussed with Dr. Ewing. Home Meds and New Rx's Prescriptions: New aspirin 81 mg Tablet,Delayed Release (Dr/Ec) 81 mg PO DAILY Qty: 30 0RF Continued rivaroxaban 20 mg tablet 20 mg PO DAILY Qty: 90 3RF Hold Instructions: Resume on 05/02/22. Rx Instructions: must administer with evening meal lisinopril 5 mg tablet 5 mg PO DAILY Qty: 90 3RF timolol maleate 0.5 % gel forming solution 1 drp ophthalmic (eye) BID [id number] 1-0.5-0.1 % Drops,Suspension 1 drp OPHTHALMIC (EYE) BID Rx Instructions: Right eye only Alphagan P 0.1 % Drops 1 drp OPHTHALMIC (EYE) BID Rx Instructions: Right eye Changed atorvastatin 10 mg tablet 80 mg PO DAILY Qty: 90 3RF Discharge Instructions Instructions: Stroke (DC) Additional Instructions: you will need outpatient vascular surgery referral for recommendations and management of bilateral cartotid stenosis. you will also need outpatient occupational medicine. Stand Alone Forms: Nursing Discharge Form Referrals: Marychuy Justin [REG OCCUPATIONAL THERAPIST] - (Please call [phone] to make an Apointment ) BULMARO YANES MD [ NON-[facility] STAFF PHYSICIAN] - (Referral sent please call [phone] in 1 week if you do not get a call carotid stenosis) Elena Lindsay MD [ [facility] STAFF PHYSICIAN] - (Please call [phone] to make an appointment ) Activity:: Activity as Tolerated Equipment/Supplies:: No Equipment Needed Diet:: As Tolerated Discharge Orders Discharge Orders: Discharge Order (Routine); Ordered 05/19/23 Ordered By: Malena Fisher Discharge Data Discharge Date/Time-TO BE ENTERED AT DEPARTURE: 05/19/23 18:21 DS: Summary Time Spent with Patient providing and/or coordinating discharge services: Greater than 30 minutes Status at Discharge Functional status at discharge: independent ambulation Overall status at discharge: patient is progressing back to baseline Mental Status: mental status grossly normal Speech and Movement: speech and movement normal Mood: congruent mood Affect: normal affect Exam Const General: cooperative, healthy appearing, comfortable and no acute distress Nutritional Appearance: average body habitus Orientation: alert, awake and oriented x3 HENMT Head: normal to inspection, normocephalic and atraumatic Face and sinus: normal facial exam Mouth: oral mucosae normal Eyes Alignment and Position: alignment normal Periorbital: periorbital findings normal Eyelids: eyelids normal Conjunctivae: conjunctivae normal Sclera: scleral abnormality right (since surgery no pain) hemorrhage Cornea: corneas normal Pupils: PERRL EOM: EOM intact bilaterally Chest Chest: normal inspection of the chest Resp Effort & Inspection: normal respiratory effort Auscultation: clear to auscultation bilaterally Cardio Rate: regular rate Rhythm: regular rhythm GI Inspection: normal to inspection Skin General skin exam: no rashes or lesions noted Neuro General: patient alert, patient awake and patient oriented x3 Cranial Nerves: CN's II-XI intact bilaterally Cognition: normal cognition Speech: speech normal Gait: normal gait Motor: muscle tone normal throughout, no tremors and other (some weakness to right hand, rapid finger to thumb delayed) Sensory Exam: no sensory deficits noted Extrem General: normal to inspection Right upper extremity: normal to inspection Psych Mental Status: mental status grossly normal Speech and Movement: speech and movement normal Mood: congruent mood Affect: normal affect DS: Data Vitals/I&O Vitals and I&O: Vital Signs Temperature 36.6 C 05/19/23 15:27 Temperature Source Tympanic 05/19/23 15:27 Pulse 60 05/19/23 15:27 Pulse Rhythm Regular 05/19/23 08:08 Respiratory Rate 18 05/19/23 15:27 Respiratory Effort Normal, Non-Labored 05/19/23 15:22 Respiratory Depth Normal 05/19/23 08:08 Respiratory Pattern Normal 05/19/23 08:08 Blood Pressure 126/72 05/19/23 15:27 Blood Pressure Position Sitting 05/18/23 12:04 Pulse Oximetry 98 05/19/23 15:27 Oxygen Delivery Method Room Air 05/19/23 15:27 Oxygen Flow Rate 0 05/19/23 15:27 Pain Level 0 05/19/23 02:18 Intake & Output 05/18/23 05/19/23 05/19/23 23:59 11:59 23:59 Intake Total 780 / 780 120 / 360 240 / 360 Balance 780 / 780 120 / 360 240 / 360 Weight 96.615 kg Intake: Oral 780 / 780 120 / 360 240 / 360 Data Completed and Pending Labs on day of discharge: Labs from last 24 hours 05/19/23 05/19/23 15:55 15:55 Hemoglobin A1c Pending Triglycerides Pending Total Cholesterol Pending LDL Cholesterol, Calc Pending HDL Cholesterol Pending [facility] All Active Problems (Updated 05/19/23 @ 20:55 by Elena Lindsay MD) Occlusion of right vertebral artery (Acute) Carotid stenosis, bilateral (Acute) Ischemic stroke (Acute) Right arm numbness (Acute) Macrocytosis without anemia (Acute) Primary open angle glaucoma (POAG) of right eye, mild stage (Chronic) Cough (Acute) Tricuspid regurgitation (Acute) Beat, premature ventricular (Acute ~08/2022) 09/11/22 Cardiology 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 (Acute) Syncope (Chronic) Prolonged QT interval (Acute) Atrial tachycardia determined by electrocardiography (Acute) Internal hemorrhoids (Acute) Diabetes mellitus type II, controlled (Chronic) Blood glucose abnormal (Acute 11/03/14) Trigger middle finger of right hand (Acute 04/25/16) Abdominal aortic aneurysm (AAA) 3.0 cm to 5.5 cm in diameter in male (Chronic) Found in October 2018, needs to be rechecked every 3 years Pure hypercholesterolemia (Chronic 01/31/12) goal LDL<70 Metabolic syndrome X (Chronic 02/15/13) goal 215# 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 s/p stenting x 5 2010 or 2011 at [facility] b. presenting symptom was primarily fatigue Hypertension (Chronic) H/O: urinary stone (Chronic) Hx of colonic polyps (Chronic) Benign prostatic hypertrophy (Chronic) Atrial fibrillation (Chronic) 10/09/20 [facility] [place] Cardiology Medical History Atrial fibrillation with RVR Surgical History R small trigger finger release (05/28/16) [place] S/P ablation of atrial fibrillation (10/2018) steriotactic brain bx (01/27/15) [facility] [place] bx brain abscess Family History Mother , HF at age 89. Heart disease Father , stroke HBP at age 90. Essential hypertension Brother , heart at age 82. No problems noted. Brother No problems noted. 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 Pets and animals: No Sexually active: Yes Do you think of yourself as: straight/heterosexual Current gender identity: male What is your relationship status?: How often do you talk on the phone with friends or family?: three or more times per week How often do you get together with friends or relatives?: three or more times per week Do you belong to any clubs or organized social groups?: yes Panel score (0-1 are the most socially isolated patients): 3 What type of physical activity do you participate in: none Cassidy/Latter-Day: None Special cassidy needs: No Seatbelt use: always Drive intox or ride w/intox reefer truck 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
[2023-05-19 16:32] LABS: Calculated LDL 88 mg/dL (<100); Cholesterol 155 mg/dL (<200); HDL Cholesterol 42 mg/dL (40-60); Triglyceride 129 mg/dL (<150)
[2023-05-19 16:38] LABS: Hemoglobin A1C 5.4 % (<5.7)
[2023-05-19 16:46] VITALS: PULSE 64
== END 2023-05-19 18:21 | disposition home or self-care (01) ==
LOC: ER 14:55 → MS 21:51
PROVIDERS: Nurse Practitioner Acute Care; Admitting Provider Internal Medicine; Emergency Provider Emergency Medicine; PCP Family Medicine; Visit Provider Internal Medicine
DX: I63.233 Cerebral infarction due to unspecified occlusion or stenosis of bilateral carotid arteries (principal); I48.91 Unspecified atrial fibrillation; I10 Essential (primary) hypertension; E11.9 Type 2 diabetes mellitus without complications; E78.5 Hyperlipidemia, unspecified; Z79.01 Long term (current) use of anticoagulants; N40.0 Benign prostatic hyperplasia without lower urinary tract symptoms; R20.2 Paresthesia of skin; D75.89 Other specified diseases of blood and blood-forming organs; H40.1111 Primary open-angle glaucoma, right eye, mild stage; I07.1 Rheumatic tricuspid insufficiency; I49.3 Ventricular premature depolarization; I71.40 Abdominal aortic aneurysm, without rupture, unspecified; E78.00 Pure hypercholesterolemia, unspecified; I25.10 Atherosclerotic heart disease of native coronary artery without angina pectoris; Z86.73 Personal history of transient ischemic attack (TIA), and cerebral infarction without residual deficits; I63.211 Cerebral infarction due to unspecified occlusion or stenosis of right vertebral artery
CPT/HCPCS: 36410; 36415; 70544; 70547; 80048; 80061; 93005; 99223; 99285; 70450; 70551; 71046; 83036; 84484; 85025; 93010; 99239; G0378

== ENCOUNTER → 2023-05-19 14:39 | Outpatient (BNVA) | payer MEDICARE, SELFPAY | PROVIDERS: PCP Family Medicine; Referring Provider Family Medicine; Visit Provider Psychiatry & Neurology Neurology ==

== ENCOUNTER → 2023-06-17 13:23 | Outpatient (BNVA) | payer MEDICARE, SELFPAY | PROVIDERS: PCP Family Medicine; Referring Provider Family Medicine; Visit Provider Psychiatry & Neurology Neurology | DX: I69.331 Monoplegia of upper limb following cerebral infarction affecting right dominant side (principal); I65.21 Occlusion and stenosis of right carotid artery; I48.91 Unspecified atrial fibrillation; Z79.01 Long term (current) use of anticoagulants; Z79.82 Long term (current) use of aspirin; Z79.02 Long term (current) use of antithrombotics/antiplatelets; I10 Essential (primary) hypertension | CPT/HCPCS: 99214 ==

== ENCOUNTER 2023-07-17 14:57 | Emergency (ER) | payer MEDICARE, SELFPAY ==
[2023-07-17 15:01] VITALS: BP 128/58; PULSE 68; RESP 18; TEMP 37.1; O2SAT 98
--- NOTE | 2023-07-17 16:42 | ED.GENADUL_ITS ---
Discharge Plan Disposition Patient Disposition: Home Condition: Improving Discharge Details Chief Complaint: Urinary Clinical Impression: Hematuria, Complication, blocked Lutz catheter, H/O carotid endarterectomy, Paroxysmal A-fib Primary Care Provider: Camacho Barrera ED Provider: Ainsley Bedolla Home Meds and New Rx's Prescriptions: No Action rivaroxaban 20 mg tablet 20 mg PO DAILY Qty: 90 3RF Hold Instructions: Resume on 05/02/22. Rx Instructions: must administer with evening meal lisinopril 5 mg tablet 5 mg PO DAILY Qty: 90 3RF timolol maleate 0.5 % gel forming solution 1 drp ophthalmic (eye) BID clotrimazole 1 % cream 1 applic topical BID Qty: 45 3RF aspirin 81 mg Tablet,Delayed Release (Dr/Ec) 81 mg PO DAILY Qty: 30 0RF atorvastatin 10 mg tablet 80 mg PO DAILY Qty: 90 3RF clopidogrel 75 mg tablet 75 mg PO DAILY Discharge Instructions Instructions: Lutz Catheter Placement and Care (ED), Hematuria (ED) Additional Instructions: 1. Urine sample done here does not demonstrate any evidence of infection. 2. Dr. Jeff Bender, the urologist from [facility] is aware of your case, and you will be contacted with a follow-up appointment this clinic. 3. If the new catheter becomes obstructed with flushes as instructed by the nursing staff. Let me know if he blushing does not believe the obstruction patient here for evaluation. You should also return to the emergency department for any new or worrisome symptoms such as fever chills or any concerns. 4. Restart and/or continue your medications as previously instructed by your discharge team at [facility]. Medical Decision Making Is a 77-year-old male s/p left carotid endarterectomy for a right TIA. The patient had surgery yesterday and was discharged this morning with a Lutz catheter. The patient does have a history of paroxysmal atrial fibrillation and is on therapeutic anticoagulants. They were discontinued and he was placed on Lovenox preoperatively. He does not have a history of BPH or prostate cancer. He tells me when he awoke from surgery the Lutz catheter was in place. He presented today with symptoms of urinary retention from an obstructed Lutz catheter secondary to a blood clot. The Lutz was irrigated and we are sending a urine for urinalysis. I will contact [facility] urology regarding follow-up and to ask about bladder irrigation. I will also inquire about removing the Lutz today. Differential Diagnosis Differential Diagnosis: Hematuria causing urinary retention secondary to Lutz obstruction. UTI. Medical Records Medical records reviewed: Yes I reviewed the patient's medical records. Lab Data Lab results reviewed: Yes I reviewed the patient's lab results. Lab results narrative: No evidence of UTI HPI General Date/Time Provider Initiated Documentation: 07/17/23 15:11 . Limitations to Documentation: no limitations . Information obtained by: patient, family, RN notes reviewed and old records reviewed . History of Present Illness described as moderate, HPI Narrative: Time seen was 1520 in bed. The patient is a 77-year-old male who is status post left carotid endarterectomy at [facility] yesterday. He was discharged this morning with Lutz catheter. The patient does not have a history of BPH pr ostate cancer and has never had urinary retention before. He does have a history of paroxysmal atrial fibrillation and is on therapeutic anticoagulants. These were discontinued and he was placed on Lovenox preoperatively. He tells me that when he woke up from surgery there is a Lutz in place draining blood tinged urine. He was discharged home and told that he was to leave the Lutz in place and he would be contacted by the urology team for follow-up appointment. I have reviewed the patient's discharge paperwork and there is no urologist listed. He states that he was discharged home and was well advised that he arrived home by an began feeling the urge to urinate and sensation of bladder being full. Prior to my evaluation it was flushed symptoms. He denies any puckers or chills. No abdominal pain. He tells me that he had a TIA prior to his carotid endarterectomy. He tells me he has no residual neurologic deficits. He also tells me he does not have any other history of prostate cancer has had PSAs drawn in the past. Related Data Home Medications Medication Instructions Recorded Confirmed lisinopril 5 mg tablet 5 mg PO DAILY #90 tabs 03/18/23 07/17/23 rivaroxaban 20 mg tablet 20 mg PO DAILY #90 tabs 04/14/23 07/17/23 timolol maleate 0.5 % eye gel 1 drp ophthalmic (eye) BID 05/08/23 07/17/23 forming solution aspirin 81 mg tablet,delayed 81 mg PO DAILY #30 tabs 05/19/23 07/17/23 release atorvastatin 10 mg tablet 80 mg PO DAILY #90 tab-caps 05/19/23 07/17/23 clotrimazole 1 % topical cream 1 applic topical BID #45 grams 06/27/23 07/17/23 clopidogrel 75 mg tablet 75 mg PO DAILY 07/17/23 07/17/23 Previous Rx's Medication Instructions Recorded lisinopril 5 mg tablet 5 mg PO DAILY #90 tabs 03/18/23 rivaroxaban 20 mg tablet 20 mg PO DAILY #90 tabs 04/14/23 aspirin 81 mg tablet,delayed 81 mg PO DAILY #30 tabs 05/19/23 release atorvastatin 10 mg tablet 80 mg PO DAILY #90 tab-caps 05/19/23 clotrimazole 1 % topical cream 1 applic topical BID #45 grams 06/27/23 Allergies Allergy/AdvReac Type Severity Reaction Status Date / Time venom-honey bee Allergy Severe HIVES Verified 07/17/23 15:07 [bee venom (honey bee)] TACHYCARDIA Penicillins Allergy Intermediate HIVES Verified 07/17/23 15:07 levetiracetam [From [facility]] AdvReac Severe leukopenia Verified 07/17/23 15:07 prednisone AdvReac Severe rectal Verified 07/17/23 15:07 bleeding and diarrhea aspirin AdvReac Intermediate Nosebleeds Verified 07/17/23 15:07 ceftriaxone AdvReac Intermediate Leukopenia Verified 07/17/23 15:07 simvastatin AdvReac Intermediate LEG PAIN Verified 07/17/23 15:07 DR MCLEOD SHRIMP Allergy Intermediate HIVES , Uncoded 07/17/23 15:07 NAUSEA General Stated Complaint: Urinary PALOMA: 3 Review of Systems Narrative: see hpi Constitutional Constitutional: Denies chills and Denies fever(s) PFSH All Active Problems (Updated 07/17/23 @ 18:14 by Ainsley Bedolla MD) Hematuria (Acute) Complication, blocked Lutz catheter (Acute) H/O carotid endarterectomy (Acute) Paroxysmal A-fib (Acute) Peripheral artery disease (Acute) Non-healing skin lesion (Acute) Hyperlipidemia, unspecified (Acute) Acute ischemic stroke (Acute 05/18/23) Occlusion of right vertebral artery (Acute) Carotid stenosis, bilateral (Chronic) I65.21 - Right-sided extracranial carotid artery stenosis Ischemic stroke (Acute) Macrocytosis without anemia (Acute) Primary open angle glaucoma (POAG) of right eye, mild stage (Chronic) Cough (Acute) Tricuspid regurgitation (Acute) Beat, premature ventricular (Acute ~08/2022) 09/11/22 Cardiology 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 (Acute) Syncope (Chronic) Prolonged QT interval (Acute) Atrial tachycardia determined by electrocardiography (Acute) Internal hemorrhoids (Acute) Blood glucose abnormal (Acute 11/03/14) Trigger middle finger of right hand (Acute 04/25/16) Abdominal aortic aneurysm (AAA) 3.0 cm to 5.5 cm in diameter in male (Chronic) Found in October 2018, needs to be rechecked every 3 years Pure hypercholesterolemia (Chronic 01/31/12) goal LDL<70 Metabolic syndrome X (Chronic 02/15/13) goal 215# 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 s/p stenting x 5 2010 or 2011 at [facility] b. presenting symptom was primarily fatigue Hypertension (Chronic) Benign prostatic hypertrophy (Chronic) Atrial fibrillation (Chronic) I48.0 Paroxysmal atrial fibrillation 10/09/20 [facility] Cardiology Medical History (Updated 07/17/23 @ 18:14 by Ainsley Bedolla MD) Atrial fibrillation with RVR H/O: urinary stone Hx of colonic polyps Surgical History (Updated 07/17/23 @ 18:14 by Ainsley Bedolla MD) R small trigger finger release (05/28/16) [place] S/P ablation of atrial fibrillation (10/2018) steriotactic brain bx (01/27/15) [facility] bx brain abscess Family History Mother , HF at age 89. Heart disease Father , stroke HBP at age 90. Essential hypertension Brother , heart at age 82. No problems noted. Brother No problems noted. 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: Retired [employer] Pets and animals: No Sexually active: Yes Do you think of yourself as: straight/heterosexual Current gender identity: male What is your relationship status?: How often do you talk on the phone with friends or family?: three or more times per week How often do you get together with friends or relatives?: three or more times per week Do you belong to any clubs or organized social groups?: yes Panel score (0-1 are the most socially isolated patients): 3 What type of physical activity do you participate in: none Cassidy/Rastafari: None Special cassidy needs: No Seatbelt use: always Drive intox or ride w/intox bus driver supervisor: No Working smoke detector in home: Yes Fire extinguisher in home: Yes Carbon monox detector in home: Yes Do you feel safe at home: Yes Do you feel safe in your relationship?: Yes Exam Narrative Exam Narrative: The patient is well-developed well-nourished male lying on the stretcher in no acute distress. There is a draining brown urine attached to a leg bag Const General: cooperative, healthy appearing, comfortable, no acute distress, well developed, well groomed and well hydrated Nutritional Appearance: average body habitus and well nourished Orientation: alert, awake and oriented x3 HENMT Head: normal to inspection, normocephalic and atraumatic Ears: hearing grossly normal bilaterally and external ears normal General nose exam: external nose normal, nares normal and no nasal discharge Face and sinus: normal facial exam, sinuses nontender and face symmetric Mouth: oral mucosae normal, lip normal, tongue normal, oropharynx normal, moist mucous membranes and other (Normal phonation. The patient is handling secretions.) Throat: posterior oropharynx normal and uvula midline Eyes General: appearance normal, both eyes and all related structures Eyelids: eyelids normal Conjunctivae: conjunctivae normal Sclera: sclerae normal Cornea: corneas normal Pupils: PERRL EOM: EOM intact bilaterally and No nystagmus Neck Neck: full ROM, no lymphadenopathy, no meningeal signs, trachea midline and supple Lymphatic: no lymphadenopathy noted Other: The patient a dressing over the left anterior neck. There is a amount of dried blood along the superior margin of the dressing but no active bleeding. No swelling of the neck. No warmth or erythema in the dressing. Chest Chest: normal inspection of the chest Resp Effort & Inspection: normal respiratory effort, able to speak in complete sentences, no audible wheezes, no nasal flaring, no respiratory distress, no retractions, no stridor, not tachypneic, no tracheal deviation, no use of accessory muscles, No prolonged expiratory phase and other (Normal inspiratory to expiratory ratio.) Auscultation: clear to auscultation bilaterally, no rales, no rhonchi, no wheezes and no rubs Tactile Fremitus: tactile fremitus absent Cardio Jugular venous pressure: no JVD Palpation: normal PMI Rate: regular rate Rhythm: regular rhythm Heart Sounds: S1 normal, S2 normal, no gallops, no murmurs and no rubs Other: The patient is a regular rate and rhythm GI Inspection: normal to inspection and non-distended Palpation: soft, no hepatosplenomegaly, no guarding and nontender Percussion: normal to percussion Auscultation: normal bowel sounds General: No CVA tenderness Other: The patient has a normal external male genitalia. There is a catheter in place draining brown urine that appears clear. Back/Spine/Pelvis Back: no CVA tenderness and No back tenderness Cervical Spine: normal cervical lordosis, cervical ROM normal, No cervical muscular tenderness, No pain with cervical ROM, No cervical spinal tenderness and No step off deformity Thoracic/Lumbar Spine: thoracic and lumbar spine normal to inspection, No thoracic spinal tenderness and No lumbar spinal tenderness Pelvis: no pain with anterior-posterior compression and no pain with lateral compression Skin General skin exam: no rashes or lesions noted, turgor normal, no petechiae, no purpura and other (Skin is normal for ethnicity.) Lesions: no lesions Rashes: no rashes Trauma: no lacerations or abrasions Neuro General: patient alert, patient awake, patient oriented x3, moves all extremities, no meningeal signs, no focal motor deficits and CN's II-XI intact bilaterally Cranial Nerves: CN's II-XI intact bilaterally, PERRL, accommodation normal, EOM intact bilaterally, no nystagmus, facial strength normal, tongue midline, hearing normal and no nystagmus Cognition: normal cognition Speech: speech normal Motor: muscle tone normal throughout and strength 5/5 throughout Sensory Exam: no sensory deficits noted Extrem General: normal to inspection, full ROM, capillary refill normal, no clubbing, cyanosis or edema and no calf tenderness Psych Appearance: grossly normal Affect: normal affect Attitude: cooperative Thought Process: normal Thought Content: normal Insight: insight good Judgment: judgment good Other: The patient appears to have capacity make medical decisions. Course The patient had a recurrent obstruction and his urinalysis did not show evidence of the infection. His only is of course to make a 18-gauge Reevaluation(s) Initial Evaluation: After shared decision making with the patient regarding the urologist recommendation to insert a larger Lutz for the help prevent obstruction, the patient has agreed. The urologist did not want. Lutz placed so I will order an 18-gauge Lutz to be placed with viscous lidocaine. Consultations Consultation #1: Dr. Jeff Bender from urology. He was familiar with the patient. He recommended that if the patient's urinalysis demonstrated evidence of infection that he placed on trimethoprim/sulfamethoxazole. He also recommended that the patient have a larger catheter placed if he continues to obstruct. He did not want a three-way Lutz or bladder irrigation. Time: 17:09 Vital Signs Vital signs: Vital Signs Temperature 37.1 C 07/17/23 15:01 Pulse 68 07/17/23 15:01 Respiratory Rate 18 07/17/23 15:01 Blood Pressure 128/58 L 07/17/23 15:01 Pulse Oximetry 98 07/17/23 15:01 Temperature 37.1 C 07/17/23 15:01 Temperature Source Skin 07/17/23 15:01 Pulse 68 07/17/23 15:01 Respiratory Rate 18 07/17/23 15:01 Blood Pressure 128/58 L 07/17/23 15:01 Blood Pressure Position Sitting 07/17/23 15:01 Pulse Oximetry 98 07/17/23 15:01 Oxygen Delivery Method Room Air 07/17/23 15:01 Oxygen Flow Rate 0 07/17/23 15:01 Pain Level 0 07/17/23 15:01 Lab/Test Results Lab/Test Results: No evidence of urinary tract infection
[2023-07-17 17:48] LABS: Bilirubin Negative (Negative); Blood Large (Negative); Clarity Sl Cloudy (Clear); Glucose Negative (Negative); Ketones Negative (Negative); Leukocyte Esterase Negative (Negative); Nitrite Negative (Negative); Specific Gravity <= 1.005 (1.005-1.025); Urobilinogen 0.2 mg/dL (Up to 0.2)
[2023-07-17 17:52] LABS: Bacteria Negative HPF (Negative); C & S Indicated? No; Casts Negative LPF (Negative); Crystals Negative HPF (Negative); Epithelial Cells Few HPF (Negative); Mucus Trace (Negative); RBC >50 HPF (0-2); WBC 0-2 HPF (0-5)
== END 2023-07-17 18:59 | disposition home or self-care (01) ==
PROVIDERS: Emergency Provider Emergency Medicine Emergency Medical Services; PCP Family Medicine
DX: T83.091A Other mechanical complication of indwelling urethral catheter, initial encounter (principal); R31.9 Hematuria, unspecified; I48.0 Paroxysmal atrial fibrillation; Z98.890 Other specified postprocedural states
CPT/HCPCS: 51702; 99283; 81003; 81015

== ENCOUNTER 2023-07-31 20:43 | Inpatient (IN) | payer MEDICARE, SELFPAY ==
[2023-07-31] VITALS (38 sets, daily range): BP systolic 95–144; BP diastolic 61–113; PULSE 73–153; RESP 13–25; O2SAT 100
--- NOTE | 2023-07-31 20:45 | DI.CT_ITS ---
Exam(s) CT THORAX ABD/PEL CTA EXAM: CT THORAX ABD/PEL CTA CLINICAL HISTORY: syncope, tachy, htn, PE v aorta?. TECHNIQUE: Imaging Protocol: Axial CT angiography was performed with multi-slice acquisition and mu lti-planar and/or 3D reconstructions. CONTRAST MATERIAL: Intravenous: Omnipaque 350 Contrast volume:100 ml COMPARISON: CT CT ABDOMEN PELVIS WO from 04/19/[address] THORAX CTA from 01/14/2023 FINDINGS: CHEST: Pulmonary Arteries: No evidence of filling defects to suggest pulmonary emboli. Distal branches unabl e to be value evaluated due to suboptimal contrast bolus. Bolus timing was centered on the aorta. Tracheobronchial tree: No bronchiectasis or mucus plugging. Mediastinum and Sonia: No dominant adenopathy or fluid collection. Pulmonary parenchyma: No consolidation or dominant measurable mass. Pleura: No effusion. No pneumothorax. Heart: Left atrial dilatation. Moderate coronary artery calcifications are seen. Atrial annular calc ification. Aorta: Moderate to severe irregular atherosclerotic changes. No evidence of dissection. Ascending a silvino stable at 4.3 cm. Bones: Unremarkable for age.Flowing osteophytes. Sixteen 2 Tubes, Catheters, and Lines: None. ABDOMEN and PELVIS: Liver: Normal size. Normal density. No suspicious measurable mass. Portal, Superior Mesenteric, and Splenic Veins: Unremarkable. Gallbladder and Biliary Tract: No radiodense calculus. No biliary dilatation. Pancreas: Normal density, no abnormal calcifications or inflammatory process. Spleen: Normal. Adrenals: No masses seen. Kidneys: Normal size, contour and axis. No radiodense stones. No obstructive uropathy. No masses seen . Vasculature: Abdominal aorta non-dilated. Moderate to severe irregular atherosclerotic calcification . Less than 50 percent narrowing of the proximal celiac axis. Mild poststenotic dilatation. SMA an d VLADIMIR are unremarkable. Renal arteries show calcification but no significant stenosis. Iliac and vi sualized portions of the femoral arteries show no significant stenosis. The Bowel: Mild diverticulosis. No obstruction or bowel wall thickening. Appendix is unremarkable. Peritoneal Cavity: No ascites, collection or mesenteric inflammatory response. Lymph Nodes: Within normal limits. Soft Tissues: Unremarkable. Bladder: Bladder wall thickening, unchanged from prior. Not well distended. Likely secondary to chr onic bladder outlet obstruction. Cystitis not excluded. Reproductive Organs: Markedly enlarged prostate. Lymph Nodes: Within normal limits. Bones: Unremarkable for age.. IMPRESSION: 1. No evidence of aortic dissection. Stable dilatation of ascending aorta 4.3 cm. Severe atheroscle rotic changes of the descending thoracic and abdominal aorta. 2. No acute abdominal or pelvic process. Enlarged prostate and bladder wall thickening again noted . Superimposed cystitis not excluded. RADIATION DOSE DELIVERED: 1,316.52mGy.cm Total DLP DATA REPOSITORY: All CT scans at this facility are submitted to the National Radiology Data Registry (NRDR) Dose Index Registry (DIR) with the [employer] (ACR). RADIATION OPTIMIZATION: All CT scans at this facility use at least one of these dose optimization te chniques: automated exposure control; mA and/or kV adjustment per patient size (includes targeted exa ms where dose is matched to clinical indication); or iterative reconstruction.
--- NOTE | 2023-07-31 20:45 | RT.EKG_ITS ---
APPROVED REPORT Exam: Resting ECG Reason for Exam: dizzy Patient Location: E HR:128 bpm ECG Measurements Heart Rate 128 AXIS WV [id number] P [id number] QRSd 81 QRS 72 QT 314 T -19 QTc 459 Conclusion Atrial fibrillation...? atrial activity Repol abnrm suggests ischemia, inferior leads...ST dep, T neg, II III aVF afib rvr, normal axis, PVCs, rate related st depressions
--- NOTE | 2023-07-31 20:45 | DI.CT_ITS ---
Exam(s) CT HEAD WO EXAM: CT HEAD WO CLINICAL HISTORY: syncope, headache. TECHNIQUE: Imaging Protocol: Axial computed tomography images with coronal and sagittal reformatted images were created and reviewed COMPARISON: CT CT HEAD WO from 05/18/2023 FINDINGS: Ventricles and Extra axial spaces: Normal in size and morphology for the patient's age. Hemorrhage: None. Cerebral parenchyma: No evidence of acute infarct or mass. Old high right frontal infarct. Midline shift: None. Brainstem/Cerebellum: Normal. Calvarium: Nilo hole high right frontal bone. Visualized Paranasal sinuses/Mastoids: Clear. Soft Tissues: Unremarkable. IMPRESSION: No acute intracranial process. RADIATION DOSE DELIVERED: 808.01mGy.cm Total DLP DATA REPOSITORY: All CT scans at this facility are submitted to the National Radiology Data Registry (NRDR) Dose Index Registry (DIR) with the [employer] (ACR). RADIATION OPTIMIZATION: All CT scans at this facility use at least one of these dose optimization te chniques: automated exposure control; mA and/or kV adjustment per patient size (includes targeted exa ms where dose is matched to clinical indication); or iterative reconstruction.
--- NOTE | 2023-07-31 21:01 | ED.GENADUL_ITS ---
Discharge Plan Disposition Patient Disposition: Admit to [facility] Discharge Details Clinical Impression: Atrial fibrillation, Syncope, Acute UTI Primary Care Provider: Camacho Barrera ED Provider: Jame Colmenares Home Meds and New Rx's Prescriptions: No Action rivaroxaban 20 mg tablet 20 mg PO DAILY Qty: 90 3RF Hold Instructions: Resume on 05/02/22. Rx Instructions: must administer with evening meal enoxaparin [Lovenox] 100 mg/mL syringe 100 mg subcut Q12H timolol maleate 0.5 % gel forming solution 1 drp ophthalmic (eye) BID clotrimazole 1 % cream 1 applic topical BID Qty: 45 3RF lisinopril 20 mg tablet 20 mg PO DAILY aspirin 81 mg Tablet,Delayed Release (Dr/Ec) 81 mg PO DAILY Qty: 30 0RF atorvastatin 10 mg tablet 80 mg PO DAILY Qty: 90 3RF clopidogrel 75 mg tablet 75 mg PO DAILY Medical Decision Making 77-year-old male history of abdominal aortic aneurysm recent carotid endarterectomy on anticoagulation presents with multiple episodes of syncope from rest associate with left flank pain, hypertense on arrival tachycardic A- fib RVR, conjunctival pallor pallor to skin cool extremities, abdomen soft nontender nondistended patient appears uncomfortable at rest, consider abdominal aortic aneurysm rupture versus PE versus intra-abdominal infection versus urinary retention versus ACS versus infectious process; stat EKG CTA chest abdomen pelvis, labs type and screen coags, fluid bolus 22: 20 guaiac negative; patient resting comfortably no acute distress feeling better after rest and fluids however patient's heart rate is still in the 1 teens to 120s A-fib RVR, was given bolus of Dilt; labs unremarkable CT chest abdomen pelvis largely unremarkable. Consider component of dehydration versus viral in the setting of severe left hip pain patient has a history of sciatica. HPI General Date/Time Provider Initiated Documentation: 07/31/23 20:49 . HPI Narrative: 77-year-old male with known abdominal aortic aneurysm, recent left-sided carotid endarterectomy presents with multiple episodes of syncope from rest associated with left flank pain Related Data Home Medications Medication Instructions Recorded Confirmed rivaroxaban 20 mg tablet 20 mg PO DAILY #90 tabs 04/14/23 07/31/23 timolol maleate 0.5 % eye gel 1 drp ophthalmic (eye) BID 05/08/23 07/31/23 forming solution aspirin 81 mg tablet,delayed 81 mg PO DAILY #30 tabs 05/19/23 07/31/23 release atorvastatin 10 mg tablet 80 mg PO DAILY #90 tab-caps 05/19/23 07/31/23 clotrimazole 1 % topical cream 1 applic topical BID #45 grams 06/27/23 07/31/23 clopidogrel 75 mg tablet 75 mg PO DAILY 07/17/23 07/31/23 enoxaparin 100 mg/mL subcutaneous 100 mg subcut Q12H 07/18/23 07/18/23 syringe (Lovenox) lisinopril 20 mg tablet 20 mg PO DAILY 07/21/23 07/31/23 Previous Rx's Medication Instructions Recorded rivaroxaban 20 mg tablet 20 mg PO DAILY #90 tabs 04/14/23 aspirin 81 mg tablet,delayed 81 mg PO DAILY #30 tabs 05/19/23 release atorvastatin 10 mg tablet 80 mg PO DAILY #90 tab-caps 05/19/23 clotrimazole 1 % topical cream 1 applic topical BID #45 grams 06/27/23 Allergies Allergy/AdvReac Type Severity Reaction Status Date / Time venom-honey bee Allergy Severe HIVES Verified 07/31/23 21:25 [bee venom (honey bee)] TACHYCARDIA Penicillins Allergy Intermediate HIVES Verified 07/31/23 21:25 levetiracetam [From [facility]] AdvReac Severe leukopenia Verified 07/31/23 21:25 prednisone AdvReac Severe rectal Verified 07/31/23 21:25 bleeding and diarrhea aspirin AdvReac Intermediate Nosebleeds Verified 07/31/23 21:25 ceftriaxone AdvReac Intermediate Leukopenia Verified 07/31/23 21:25 simvastatin AdvReac Intermediate LEG PAIN Verified 07/31/23 21:25 DR MCLEOD SHRIMP Allergy Intermediate HIVES , Uncoded 07/31/23 21:25 NAUSEA General Stated Complaint: [id number] PALOMA: 2 Review of Systems Narrative: Review of Systems Constitutional: negative Eyes: negative ENT: negative Cardiovascular: Syncope, flank pain Respiratory: negative Gastrointestinal: negative : negative Musculoskeletal: negative Skin: negative Neurologic: negative Psych: negative PFSH All Active Problems (Updated 07/31/23 @ 22:43 by Jame Colmenares MD) Atrial fibrillation (Chronic) Syncope (Chronic) Acute UTI (Acute) History of left-sided carotid endarterectomy (Acute) 07/16/2023 at [facility] Hematuria (Acute) Complication, blocked Lutz catheter (Acute) H/O carotid endarterectomy (Acute) Paroxysmal A-fib (Acute) Peripheral artery disease (Acute) Non-healing skin lesion (Acute) Hyperlipidemia, unspecified (Acute) Acute ischemic stroke (Acute 05/18/23) Occlusion of right vertebral artery (Acute) Carotid stenosis, bilateral (Chronic) I65.21 - Right-sided extracranial carotid artery stenosis Ischemic stroke (Acute) Macrocytosis without anemia (Acute) Primary open angle glaucoma (POAG) of right eye, mild stage (Chronic) Cough (Acute) Tricuspid regurgitation (Acute) Beat, premature ventricular (Acute ~08/2022) 09/11/22 Cardiology 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 (Acute) Syncope (Chronic) Prolonged QT interval (Acute) Atrial tachycardia determined by electrocardiography (Acute) Internal hemorrhoids (Acute) Blood glucose abnormal (Acute 11/03/14) Trigger middle finger of right hand (Acute 04/25/16) Abdominal aortic aneurysm (AAA) 3.0 cm to 5.5 cm in diameter in male (Chronic) Found in October 2018, needs to be rechecked every 3 years Pure hypercholesterolemia (Chronic 01/31/12) goal LDL<70 Metabolic syndrome X (Chronic 02/15/13) goal 215# 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 s/p stenting x 5 2010 or 2011 at [facility] b. presenting symptom was primarily fatigue Hypertension (Chronic) Benign prostatic hypertrophy (Chronic) Atrial fibrillation (Chronic) I48.0 Paroxysmal atrial fibrillation 10/09/20 [facility] Cardiology Medical History (Updated 07/31/23 @ 22:43 by Jame Colmenares MD) Atrial fibrillation with RVR H/O: urinary stone Hx of colonic polyps Surgical History (Updated 07/18/23 @ 10:25 by Rosy Alejandra) R small trigger finger release (05/28/16) [place] S/P ablation of atrial fibrillation (10/2018) steriotactic brain bx (01/27/15) [facility] bx brain abscess Family History Mother , HF at age 89. Heart disease Father , stroke HBP at age 90. Essential hypertension Brother , heart at age 82. No problems noted. Brother No problems noted. 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: Retired [employer]er Pets and animals: No Sexually active: Yes Do you think of yourself as: straight/heterosexual Current gender identity: male What is your relationship status?: How often do you talk on the phone with friends or family?: three or more times per week How often do you get together with friends or relatives?: three or more times per week Do you belong to any clubs or organized social groups?: yes Panel score (0-1 are the most socially isolated patients): 3 What type of physical activity do you participate in: none Cassidy/Gnosticism: None Special cassidy needs: No Seatbelt use: always Drive intox or ride w/intox escort car driver: No Working smoke detector in home: Yes Fire extinguisher in home: Yes Carbon monox detector in home: Yes Do you feel safe at home: Yes Do you feel safe in your relationship?: Yes Exam Narrative Exam Narrative: Physical Examination General: alert, awake, cooperative, appears uncomfortable HEENT: normocephalic, atraumatic; PERRL, EOM intact, pale conjunctiva; no nasal discharge; moist mucous membranes, oral and pharyngeal mucosa normal, tolerating secretions Neck: supple, trachea midline; full ROM Chest: normal to inspection Respiratory: normal respiratory effort, speaking in full sentences, clear to auscultation, no wheezing, rales or rhonchi Cardiac: Irregularly irregular tachycardia, S1S2 intact, no murmurs rubs or gallops; equal distal pulses in bilateral radial and DP GI: abdomen soft, non-tender, non-distended; no palpable mass or hepatosplenomegaly Skin: Pale cool skin Neuro: AAOx3, normal speech, moving all extremities Psych: Appropriate mood and affect Course Vital Signs Vital signs: Vital Signs Pulse 135 H 07/31/23 20:49 Respiratory Rate 15 07/31/23 20:49 Blood Pressure 136/104 H 07/31/23 20:49 Pulse Oximetry 100 07/31/23 20:49 Pulse 129 H 07/31/23 20:52 Pulse 130 H 07/31/23 20:52 Respiratory Rate 14 07/31/23 20:52 Blood Pressure 136/104 H 07/31/23 20:52 Blood Pressure Mean 111 07/31/23 20:52 Blood Pressure Position Sitting 07/31/23 20:49 Pulse Oximetry 100 07/31/23 20:49 Oxygen Delivery Method Room Air 07/31/23 20:49 Oxygen Flow Rate 0 07/31/23 20:49
[2023-07-31] MEDS: Normal Saline - Diluent 50 ML VIAL IJ (21:02)
[2023-07-31] MEDS: Omnipaque 350 MG/ML 100 ML BTL IJ (21:03)
[2023-07-31] MEDS: Normal Saline Flush 10 ML SYR IVP (21:03)
[2023-07-31 21:12] LABS: BE (Venous) 0 mmol/L (-2-3); HCO3 (Venous) 26 mmol/L (23-28); O2 Sat (Venous) 56 %; TCO2 (Venous) 23 mmol/L (24-29); pCO2 (Venous) 46 mmHg (41-51); pH (Venous) 7.36 (7.31-7.41); pO2 (Venous) 33 mmHg
[2023-07-31 21:14] LABS: Abs Immature Grans 0.04 10^3/uL (0.0-0.06); Absolute Basophil Count 0.05 10^3/uL (0.0-0.2); Absolute Lymphocyte Count 1.87 10^3/uL (1.2-3.4); Absolute Monocyte Count 0.99 10^3/uL (0.1-0.8); Basophils % 0.4; Eosinophils % 9.4; HCT 43.7 % (40.0-50.0); HGB 14.8 g/dL (13.5-17.5); Immature Grans % 0.3; Lymphocytes % 15.9; MCH 31.8 pg (27.0-33.0); MCHC 33.9 % (32.0-36.0); MCV 94 fL (80-95); Monocytes % 8.4; Neutrophils % 65.6; Platelet Count 389 10^3/uL (130-400); RBC 4.66 10^6/uL (4.36-5.78); RDW 12.9 % (11.8-14.1); RDW-SD 44.1 fL; WBC 11.74 10^3/uL (4.4-10.8)
[2023-07-31] MEDS: Normal Saline 1,000 ML 1000 ML IV (21:24)
[2023-07-31 21:31] LABS: INR 1.1 (0.9-1.1); PTT Activated 39.2 sec (21.5-31.9); Prothrombin Time 11.4 sec (9.3-11.0)
[2023-07-31 21:44] LABS: ALT 31 U/L (16-63); AST 21 U/L (15-37); Albumin 3.7 g/dL (3.4-5.0); Alkaline Phosphatase 111 U/L (46-116); Anion Gap 11.6 mmol/L (3-11); BUN 18 mg/dL (7-18); Bilirubin, Total 0.8 mg/dL (0.2-1.0); CO2 25.4 mmol/L (21.0-32.0); Chloride 100 mmol/L (98-107); Creatine Kinase 28 U/L (39-308); Estimated GFR 77.52 (mL/min/1.73m2); Glucose 137 mg/dL (74-106); Lipase 54 U/L (16-77); Magnesium 1.9 mg/dL (1.8-2.4); NT-proBNP 520 pg/mL (<300); Potassium 3.5 mmol/L (3.5-5.1); Sodium 137 mmol/L (136-145); TSH (W/Ref FT4) 4.66 uIU/mL (0.36-3.74); Total Protein 7.8 g/dL (6.4-8.2); Troponin I < 50 ng/L (<or=60)
--- NOTE | 2023-07-31 21:54 | DI.VRAD_ITS ---
PROCEDURE INFORMATION: Exam: CTA Chest With Contrast CTA Abdomen and Pelvis With Contrast Exam date and time: 07/31/2023 9:17 PM Age: 77 years old Clinical indication: Other: Syncope, tachy, HTN, pe v aorta? TECHNIQUE: Imaging protocol: Computed tomographic angiography of the chest with contrast. Exam focused on the arteries. Computed tomographic angiography of the abdomen and pelvis with contrast. Exam focused on the arteries. 3D rendering (Not supervised by radiologist): MIP and/or 3D reconstructed images were created by the technologist. Contrast material: OMNIPAQUE 350; Contrast volume: 100 ml; Contrast route: INTRAVENOUS (IV); COMPARISON: CT THORAX CTA 01/14/2023 11:00 AM FINDINGS: VASCULATURE: Pulmonary arteries: No main or lobar pulmonary artery emboli. Evaluation beyond the lobar level is nondiagnostic, secondary to lack of satisfactory contrast opacification. Aorta: Atherosclerotic disease of the thoracic aorta, without aneurysm or dissection. Atherosclerotic disease of the abdominal aorta and iliac arteries, without aneurysm or dissection. Celiac trunk and mesenteric arteries: Approximately 30% luminal narrowing of the proximal celiac artery (series 8, image 69). Other mesenteric arteries appear unremarkable.. Renal arteries: No occlusion or significant stenosis. Right iliac arteries: No occlusion or significant stenosis. Left iliac arteries: No occlusion or significant stenosis. CHEST: Lungs: Unremarkable. No consolidation. No masses. Pleural spaces: Unremarkable. No pneumothorax. No pleural effusion. Heart: Calcification of the mitral valve annulus. Coronary arteries: Moderate three-vessel coronary artery atherosclerotic disease. Diaphragm: Small-sized hiatal hernia. ABDOMEN AND PELVIS: Liver: No mass. Gallbladder and bile ducts: Unremarkable. No calcified stones. No ductal dilation. Pancreas: Unremarkable. No mass. No ductal dilation. Spleen: Unremarkable. No splenomegaly. Adrenal glands: Unremarkable. No mass. Kidneys and ureters: Unremarkable. No solid mass. No hydronephrosis. Stomach and bowel: Colonic diverticulosis. Appendix: No evidence of appendicitis. Intraperitoneal space: Unremarkable. No free air. No significant fluid collection. Urinary bladder: Moderate urinary bladder wall thickening, with mild adjacent fat stranding, compatible with acute cystitis. Reproductive: Prostate gland is enlarged, measuring approximately 5.5 cm in AP diameter. Lymph nodes: Unremarkable. No enlarged lymph nodes. Bones/joints: L5-S1 degenerative disc disease, with disc space narrowing, vacuum disc phenomenon, minimal osteophyte formation. Soft tissues: Unremarkable. IMPRESSION: 1. No main or lobar pulmonary artery emboli. Evaluation beyond the lobar level is nondiagnostic, secondary to lack of satisfactory contrast opacification. 2. Atherosclerotic disease of the thoracoabdominal aorta and iliac arteries, without aneurysm or dissection. 3. Moderate urinary bladder wall thickening, with mild adjacent fat stranding, compatible with acute cystitis. Dictated and Authenticated by: Lalo Penaloza MD. Ordering:ADAM Kilgore MD
[2023-07-31 22:00] LABS: ETHANOL BLOOD < 3.0 mg/dL (<10)
--- NOTE | 2023-07-31 22:01 | DI.VRAD_ITS ---
PROCEDURE INFORMATION: Exam: CT Head Without Contrast Exam date and time: 07/31/2023 9:10 PM Age: 77 years old Clinical indication: Other: Syncope, headache TECHNIQUE: Imaging protocol: Computed tomography of the head without contrast. COMPARISON: 1. MR BRAIN WO 05/19/2023 1:[address] HEAD WO 05/18/2023 1:00 PM FINDINGS: Brain: There is mild age related parenchymal atrophy with prominence of the cortical sulci. Area of encephalomalacia within the high right frontoparietal lobe appears grossly similar to comparison CT. Periventricular and deep white matter hypodensities are consistent with sequela of chronic microvascular ischemic disease. No midline shift or herniation. No acute intracranial hemorrhage. Cerebral ventricles: No ventriculomegaly. Paranasal sinuses: Imaged paranasal sinuses appropriately aerated without air-fluid levels. Mastoid air cells: No mastoid effusion. Bones/joints: Old right frontal merritt hole similar to prior. No acute osseous finding. Soft tissues: No focal soft tissue abnormality. IMPRESSION: No acute intracranial finding. Dictated and Authenticated by: Josh Doe MD. Ordering:ADAM Kilgore MD
[2023-07-31 22:04] LABS: FREE T4 1.11 ng/dL (0.76-1.46)
[2023-07-31] MEDS: dilTIAZem 25 MG/5 ML VIAL 10 MG IVP (22:21)
[2023-07-31 22:25] LABS: Bilirubin Negative (Negative); Blood Small (Negative); Clarity Clear (Clear); Glucose Negative (Negative); Ketones Trace mg/dL (Negative); Leukocyte Esterase Small (Negative); Nitrite Negative (Negative); Specific Gravity <= 1.005 (1.005-1.025); Urobilinogen 0.2 mg/dL (Up to 0.2)
[2023-07-31 22:33] LABS: Bacteria Negative HPF (Negative); C & S Indicated? Yes; Crystals Negative HPF (Negative); Epithelial Cells Negative HPF (Negative); Mucus Trace (Negative)
[2023-07-31] MEDS: levoFLOXacin 750 MG/150 ML BAG 100 MG IVPB (23:28)
[2023-07-31 23:34] LABS: Troponin I < 50 ng/L (<or=60)
[2023-08-01] VITALS (243 sets, daily range): BP systolic 80–144; BP diastolic 42–106; PULSE 47–153; RESP 5–33; TEMP 35.8–36.5; O2SAT 92–100
--- NOTE | 2023-08-01 01:49 | W.PM.HP.N ---
Date of service: 08/01/23 Time of Service: 01:49 Assessment and Plan Assessment and plan (1) Syncope: Status: Chronic Assessment and plan: He has a history of vasovagal syncope in the past. It is unclear as to his symptoms here in registration. There was no hypotension when he presented and his heart rate was not significantly high or low at that time. Evaluation of head CT and chest abdomen pelvis CT did not show any significant abnormalities. (2) Atrial fibrillation: Status: Chronic Assessment and plan: He was given 10 mg of diltiazem which slowed his heart rate down to from about 130. I will start him on diltiazem 30 mg p.o. 3 times daily present time. He will be watched in the intensive care unit overnight. (3) Acute UTI: Status: Acute Assessment and plan: He was started on levofloxacin by the emergency doctor and this will be continued p.o. Urine culture is pending. (4) Low back pain: Status: Acute Assessment and plan: His back pain is quite severe at the present time. He has a history of herniated lumbar disc and I will repeat the MRI tomorrow. He will be treated with pain medicines at this time. History of Present Illness History of Present Illness Chief Complaint: Low back pain and lightheadedness. Narrative: This 77-year-old male came to the hospital to because of not feeling well at home with lightheadedness, diaphoresis and left-sided low back pain. He was hospitalized recently for TIA symptoms and involved his right hand and was found to have a left carotid stenosis. He has left carotid endarterectomy about 2 weeks ago at [facility]. He had complications that required a bladder catheter that he had in for about 5 days. Shortly after being released from [facility] for the carotid surgery he developed hematuria and came here. A larger bladder catheter was placed and he went back to [facility] for follow-up about 5 days later and the catheter was removed. He was able to void without difficulty twice while there. He has had no difficulty voiding since then. He normally voids about 2 times per night and that has not changed recently. He has had no further hematuria and no dysuria. He recently developed some left-sided back discomfort with radiation to the left hip and abductor area. This has been without any injury. The pain is quite intense. He went to the [facility] urgent care and was told to use lidocaine patch. He has had no recent injury. He is having difficulty getting up out of bed and standing. It hurts whenever he moves. He has been using a cane at home and says he has been walking quite bent over. He said the pain started when he went to get out of bed. Last evening around dinnertime he did not have much appetite and felt a bit lightheaded. He was getting some unusual responses on his blood pressure machine which said 118/112 for the blood pressure he felt diaphoretic without chest pain and came to the emergency department. His went to park the car and while giving the registration information it appeared that he had a brief loss of consciousness without any change in vital signs. He has not been around anyone that is been ill. He has had no COVID exposure that he is aware of. He has had vasovagal reactions in the past, once following the second Moderna coronavirus vaccine. He has had a history of herniated disc but has not required surgery. He has a history of atrial fibrillation. His evaluation here in the emergency department did not show any serious abnormalities. He says he is has a history of urinary tract infections in the past that sounds like they have have been asymptomatic and the urinalysis at this time is compatible with a urinary tract infection. He was given 10 mg diltiazem intravenously for slightly elevated heart rate with atrial fibrillation. His heart rate has improved. He feels fine at present time except for the intermittent back pain when he moves. Review of Systems Constitutional Constitutional: Denies chills, Denies fever(s), Denies headache(s), Denies increased appetite and Denies weakness Eyes Eyes: Reports system reviewed and no additional complaints, except as documented, Denies change in vision and Denies loss of vision ENT Ears, Nose, Mouth, and Throat: Denies headache(s) and Denies neck pain Cardiovascular Cardiovascular: Denies chest pain at rest, Reports diaphoresis, Reports lightheadedness and Denies dyspnea Respiratory Respiratory: Denies cough, Denies dyspnea and Denies wheezing Gastrointestinal Gastrointestinal: Denies abdominal pain, Denies constipation, Denies diarrhea and Denies nausea Genitourinary Genitourinary: Reports hematuria, Denies difficulty urinating, Denies dysuria, Denies urinary incontinence and Denies urinary urgency Musculoskeletal Musculoskeletal: Reports back pain, Denies muscle weakness, Denies neck pain, Denies numbness and Denies tingling Neurologic Neurologic: Denies abnormal movements, Denies headache(s), Denies lack of coordination, Denies loss of vision, Denies numbness, Denies tingling and Denies weakness Allergic/Immunologic Allergic/Immunologic: Denies wheezing PFSH All Active Problems (Updated 08/01/23 @ 02:14 by Micheal Wong MD) Low back pain (Acute) Atrial fibrillation (Chronic) Syncope (Chronic) Acute UTI (Acute) History of left-sided carotid endarterectomy (Acute) 07/16/2023 at [facility] Hematuria (Acute) Complication, blocked Lutz catheter (Acute) H/O carotid endarterectomy (Acute) Paroxysmal A-fib (Acute) Peripheral artery disease (Acute) Non-healing skin lesion (Acute) Hyperlipidemia, unspecified (Acute) Acute ischemic stroke (Acute 05/18/23) Occlusion of right vertebral artery (Acute) Carotid stenosis, bilateral (Chronic) I65.21 - Right-sided extracranial carotid artery stenosis Ischemic stroke (Acute) Macrocytosis without anemia (Acute) Primary open angle glaucoma (POAG) of right eye, mild stage (Chronic) Cough (Acute) Tricuspid regurgitation (Acute) Beat, premature ventricular (Acute ~08/2022) 09/11/22 Cardiology 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 (Acute) Syncope (Chronic) Prolonged QT interval (Acute) Atrial tachycardia determined by electrocardiography (Acute) Internal hemorrhoids (Acute) Blood glucose abnormal (Acute 11/03/14) Trigger middle finger of right hand (Acute 04/25/16) Abdominal aortic aneurysm (AAA) 3.0 cm to 5.5 cm in diameter in male (Chronic) Found in October 2018, needs to be rechecked every 3 years Pure hypercholesterolemia (Chronic 01/31/12) goal LDL<70 Metabolic syndrome X (Chronic 02/15/13) goal 215# 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 s/p stenting x 5 2010 or 2011 at [facility] b. presenting symptom was primarily fatigue Hypertension (Chronic) Benign prostatic hypertrophy (Chronic) Atrial fibrillation (Chronic) I48.0 Paroxysmal atrial fibrillation 10/09/20 [facility] Cardiology Medical History (Updated 08/01/23 @ 02:14 by Micheal Wong MD) Atrial fibrillation with RVR H/O: urinary stone Hx of colonic polyps Surgical History (Updated 07/18/23 @ 10:25 by Rosy Alejandra) R small trigger finger release (05/28/16) prohaska S/P ablation of atrial fibrillation (10/2018) steriotactic brain bx (01/27/15) [facility] bx brain abscess Family History Mother , HF at age 89. Heart disease Father , stroke HBP at age 90. Essential hypertension Brother , heart at age 82. No problems noted. Brother No problems noted. 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 Pets and animals: No Sexually active: Yes Do you think of yourself as: straight/heterosexual Current gender identity: male What is your relationship status?: How often do you talk on the phone with friends or family?: three or more times per week How often do you get together with friends or relatives?: three or more times per week Do you belong to any clubs or organized social groups?: yes Panel score (0-1 are the most socially isolated patients): 3 What type of physical activity do you participate in: none Cassidy/Yarsanism: None Special cassidy needs: No Seatbelt use: always Drive intox or ride w/intox personal driver: No Working smoke detector in home: Yes Fire extinguisher in home: Yes Carbon monox detector in home: Yes Do you feel safe at home: Yes Do you feel safe in your relationship?: Yes Meds Allergies and Home Medications Allergies Allergy/AdvReac Type Severity Reaction Status Date / Time venom-honey bee Allergy Severe HIVES Verified 07/31/23 21:25 [bee venom (honey bee)] TACHYCARDIA Penicillins Allergy Intermediate HIVES Verified 07/31/23 21:25 levetiracetam [From [facility]] AdvReac Severe leukopenia Verified 07/31/23 21:25 prednisone AdvReac Severe rectal Verified 07/31/23 21:25 bleeding and diarrhea aspirin AdvReac Intermediate Nosebleeds Verified 07/31/23 21:25 ceftriaxone AdvReac Intermediate Leukopenia Verified 07/31/23 21:25 simvastatin AdvReac Intermediate LEG PAIN Verified 07/31/23 21:25 DR MCLEOD SHRIMP Allergy Intermediate HIVES , Uncoded 07/31/23 21:25 NAUSEA Home Medications Medication Instructions Recorded Confirmed Type rivaroxaban 20 mg tablet 20 mg PO DAILY #90 tabs 04/14/23 07/31/23 Rx timolol maleate 0.5 % eye gel 1 drp ophthalmic (eye) BID 05/08/23 07/31/23 History forming solution aspirin 81 mg tablet,delayed 81 mg PO DAILY #30 tabs 05/19/23 07/31/23 Rx release atorvastatin 10 mg tablet 80 mg PO DAILY #90 tab-caps 05/19/23 07/31/23 Rx clotrimazole 1 % topical cream 1 applic topical BID #45 grams 06/27/23 07/31/23 Rx clopidogrel 75 mg tablet 75 mg PO DAILY 07/17/23 07/31/23 History enoxaparin 100 mg/mL subcutaneous 100 mg subcut Q12H 07/18/23 07/18/23 History syringe (Lovenox) lisinopril 20 mg tablet 20 mg PO DAILY 07/21/23 07/31/23 History Exam Const General: cooperative, no acute distress, well groomed, acute distress and not diaphoretic Nutritional Appearance: average body habitus and well nourished Neck Neck: normal visual inspection, no lymphadenopathy and no JVD Other: Healing left neck incision from his carotid endarterectomy. Resp Auscultation: clear to auscultation bilaterally, no rales and no wheezes Cardio Rate: tachycardic Rhythm: abnormal rhythm Heart Sounds: S1 normal, S2 normal, no gallops and no murmurs GI Palpation: soft, no hepatosplenomegaly, no guarding and nontender Back/Spine/Pelvis Thoracic/Lumbar Spine: thoracic and lumbar spine normal to inspection Other: No tenderness of the lumbar spine to palpation. No bruising or rash is visible. He does have pain with flexion of his hip on the left. He has equal strength of both lower extremities at the his ankles with flexion and extension inversion and eversion. Reflexes are not elicited at left or right ankle. Light touch is intact over both lower extremities. Results Labs 07/31/23 21:00 07/31/23 21:00 Labs: Laboratory Results - last 24 hr 07/31/23 07/31/23 07/31/23 21:00 21:00 21:00 WBC 11.74 H RBC 4.66 Hgb 14.8 Hct 43.7 MCV 94 MCH 31.8 MCHC 33.9 RDW 12.9 Plt Count 389 MPV 10.0 Immature Gran % 0.3 Neutrophils % 65.6 Lymphocytes % 15.9 Monocytes % 8.4 Eosinophils % 9.4 Basophils % 0.4 Nucleated RBC % 0.0 Absolute Neutrophils 7.70 H Absolute Lymphocytes 1.87 Absolute Monocytes 0.99 H Absolute Eosinophils 1.10 H Absolute Basophils 0.05 PT 11.4 H INR 1.1 APTT 39.2 H VBG pH VBG pCO2 VBG pO2 VBG HCO3 VBG Total CO2 VBG O2 Saturation VBG Base Excess Sodium 137 Potassium 3.5 Chloride 100 Carbon Dioxide 25.4 Anion Gap 11.6 H BUN 18 Creatinine 1.0 Est GFR (CKD-EPI 2020) 77.52 Glucose 137 H Calcium 10.0 Magnesium 1.9 Total Bilirubin 0.8 AST 21 ALT 31 Alkaline Phosphatase 111 Creatine Kinase 28 L Troponin I < 50 NT-Pro-B Natriuret Pep 520 H Total Protein 7.8 Albumin 3.7 Lipase 54 TSH 4.66 H Free T4 1.11 Urine Color Urine Clarity Urine pH Ur Specific Bruni Urine Protein Urine Ketones Urine Blood Urine Nitrite Urine Bilirubin Urine Urobilinogen Ur Leukocyte Esterase Urine RBC Urine WBC Ur Epithelial Cells Urine Crystals Urine Bacteria Urine Mucus Ur Culture Indicated? Urine Glucose Ethyl Alcohol < 3.0 Patient ABO/Rh Antibody Screen 07/31/23 07/31/23 07/31/23 21:00 21:00 22:19 WBC RBC Hgb Hct MCV MCH MCHC RDW Plt Count MPV Immature Gran % Neutrophils % Lymphocytes % Monocytes % Eosinophils % Basophils % Nucleated RBC % Absolute Neutrophils Absolute Lymphocytes Absolute Monocytes Absolute Eosinophils Absolute Basophils PT INR APTT VBG pH 7.36 VBG pCO2 46 VBG pO2 33 VBG HCO3 26 VBG Total CO2 23 L VBG O2 Saturation 56 VBG Base Excess 0 Sodium Potassium Chloride Carbon Dioxide Anion Gap BUN Creatinine Est GFR (CKD-EPI 2020) Glucose Calcium Magnesium Total Bilirubin AST ALT Alkaline Phosphatase Creatine Kinase Troponin I NT-Pro-B Natriuret Pep Total Protein Albumin Lipase TSH Free T4 Urine Color Yellow Urine Clarity Clear Urine pH 5.0 Ur Specific Bruni <= 1.005 Urine Protein Negative Urine Ketones Trace H Urine Blood Small H Urine Nitrite Negative Urine Bilirubin Negative Urine Urobilinogen 0.2 Ur Leukocyte Esterase Small H Urine RBC 10-20 H Urine WBC 10-20 H Ur Epithelial Cells Negative Urine Crystals Negative Urine Bacteria Negative Urine Mucus Trace Ur Culture Indicated? Yes Urine Glucose Negative Ethyl Alcohol Patient ABO/Rh A Negative Antibody Screen NEGATIVE 07/31/23 23:11 WBC RBC Hgb Hct MCV MCH MCHC RDW Plt Count MPV Immature Gran % Neutrophils % Lymphocytes % Monocytes % Eosinophils % Basophils % Nucleated RBC % Absolute Neutrophils Absolute Lymphocytes Absolute Monocytes Absolute Eosinophils Absolute Basophils PT INR APTT VBG pH VBG pCO2 VBG pO2 VBG HCO3 VBG Total CO2 VBG O2 Saturation VBG Base Excess Sodium Potassium Chloride Carbon Dioxide Anion Gap BUN Creatinine Est GFR (CKD-EPI 2020) Glucose Calcium Magnesium Total Bilirubin AST ALT Alkaline Phosphatase Creatine Kinase Troponin I < 50 NT-Pro-B Natriuret Pep Total Protein Albumin Lipase TSH Free T4 Urine Color Urine Clarity Urine pH Ur Specific Bruni Urine Protein Urine Ketones Urine Blood Urine Nitrite Urine Bilirubin Urine Urobilinogen Ur Leukocyte Esterase Urine RBC Urine WBC Ur Epithelial Cells Urine Crystals Urine Bacteria Urine Mucus Ur Culture Indicated? Urine Glucose Ethyl Alcohol Patient ABO/Rh Antibody Screen Last Vital Signs Pulse 120 H 08/01/23 01:46 Resp 17 08/01/23 01:46 BP 121/85 08/01/23 01:46 Pulse Ox 100 07/31/23 20:49 Time Spent Time spent with Patient: 40-54 minutes Time was spent: preparing to see the patient(eg.review tests), obtaining and/or reviewing separately otained hiistory, ordering medications,tests, procedures and referring, communicating with other health home care associate
[2023-08-01] MEDS: dilTIAZem 30 MG TAB PO (02:49)
[2023-08-01] MEDS: HYDROcodone 10/Acetaminophen 325 TAB PO (06:20)
--- NOTE | 2023-08-01 07:15 | RT.EKG_ITS ---
APPROVED REPORT Exam: Resting ECG Reason for Exam: Rapid Afib, h/o QT prolongation Patient Location: I HR:124 bpm ECG Measurements Heart Rate 124 [address] [place] [id number] P [id number] QRSd 138 QRS 53 QT 338 T 105 QTc 486 Conclusion Atrial fibrillation...V-rate 68-143, irreg A-activity Nonspecific intraventricular conduction delay...QRSd >115mS, not LBBB/RBBB Nonspecific T abnrm, anterolateral leads...T <-0.10mV, I aVL V2-V6
[2023-08-01 07:50] LABS: Abs Immature Grans 0.04 10^3/uL (0.0-0.06); Absolute Basophil Count 0.05 10^3/uL (0.0-0.2); Absolute Eosinophil Count 0.57 10^3/uL (0.0-0.7); Absolute Lymphocyte Count 1.47 10^3/uL (1.2-3.4); Absolute Monocyte Count 0.78 10^3/uL (0.1-0.8); Absolute Neutrophil Count 5.84 10^3/uL (1.2-6.7); Basophils % 0.6; Eosinophils % 6.5; HCT 38.4 % (40.0-50.0); HGB 13.4 g/dL (13.5-17.5); Immature Grans % 0.5; Lymphocytes % 16.8; MCH 32.3 pg (27.0-33.0); MCHC 34.9 % (32.0-36.0); MCV 93 fL (80-95); MPV 9.8 fL (8.0-11.0); Monocytes % 8.9; Neutrophils % 66.7; Platelet Count 329 10^3/uL (130-400); RBC 4.15 10^6/uL (4.36-5.78); RDW 12.9 % (11.8-14.1); RDW-SD 43.4 fL; WBC 8.75 10^3/uL (4.4-10.8)
--- NOTE | 2023-08-01 07:54 | NUR.NOTE ---
Patient's EKG is taken.Nursing Note:
[2023-08-01 08:02] LABS: Anion Gap 11.3 mmol/L (3-11); BUN 15 mg/dL (7-18); CO2 21.7 mmol/L (21.0-32.0); CREATININE 0.7 mg/dL (0.70-1.30); Calcium 9.3 mg/dL (8.5-10.1); Chloride 103 mmol/L (98-107); Glucose 125 mg/dL (74-106); Magnesium 1.8 mg/dL (1.8-2.4); Potassium 4.2 mmol/L (3.5-5.1); Sodium 136 mmol/L (136-145)
--- NOTE | 2023-08-01 08:08 | INITIAL_ITS ---
Date of service: 08/01/23 Time of Service: 08:08 Care Management Initial Assmt Initial Assessment REASON FOR HOSPITALIZATION:: UTI, Syncope, Afib RVR PREVIOUS FUNCTIONAL STATUS/SOCIAL/FAMILY SUPPORTS:: Tomas lives in [facility] with his , Kisha. Their son, Amadeo, lives nearby. 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 CURRENT FUNCTIONAL STATUS:: Remains in ICU, MD seeking transfer. ADVANCE DIRECTIVES:: On file, his , Kisha, is listed as HCA. Has patient been provided with info about the portal/API?: Yes Did the patient sign up for the portal?: Yes CODE STATUS:: Full Code INSURANCE COVERAGE / FINANCIAL ISSUES:: VBA PRIMARY CARE PHYSICIAN:: Camacho Barrera POTENTIAL DISCHARGE NEEDS:: Evaluations for further needs, follow up appointments, may require new medications. PATIENT/FAMILY EDUCATION NEEDS:: Review discharge instructions and limitations, discussion of self care needs including Ask Me Three. ANTICIPATED BARRIERS TO DISCHARGE:: None identified. TRANSPORTATION:: Via private vehicle by family. PLAN:: MD seeking transfer, PT on hold due to hypotension. CM continues to follow. PFSH All Active Problems (Updated 08/01/23 @ 02:14 by Micheal Wong MD) Low back pain (Acute) Atrial fibrillation (Chronic) Syncope (Chronic) Acute UTI (Acute) History of left-sided carotid endarterectomy (Acute) 07/16/2023 at [facility] Hematuria (Acute) Complication, blocked Lutz catheter (Acute) H/O carotid endarterectomy (Acute) Paroxysmal A-fib (Acute) Peripheral artery disease (Acute) Non-healing skin lesion (Acute) Hyperlipidemia, unspecified (Acute) Acute ischemic stroke (Acute 05/18/23) Occlusion of right vertebral artery (Acute) Carotid stenosis, bilateral (Chronic) I65.21 - Right-sided extracranial carotid artery stenosis Ischemic stroke (Acute) Macrocytosis without anemia (Acute) Primary open angle glaucoma (POAG) of right eye, mild stage (Chronic) Cough (Acute) Tricuspid regurgitation (Acute) Beat, premature ventricular (Acute ~08/2022) 09/11/22 Cardiology 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 (Acute) Syncope (Chronic) Prolonged QT interval (Acute) Atrial tachycardia determined by electrocardiography (Acute) Internal hemorrhoids (Acute) Blood glucose abnormal (Acute 11/03/14) Trigger middle finger of right hand (Acute 04/25/16) Abdominal aortic aneurysm (AAA) 3.0 cm to 5.5 cm in diameter in male (Chronic) Found in October 2018, needs to be rechecked every 3 years Pure hypercholesterolemia (Chronic 01/31/12) goal LDL<70 Metabolic syndrome X (Chronic 02/15/13) goal 215# 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 s/p stenting x 5 2010 or 2011 at [facility] b. presenting symptom was primarily fatigue Hypertension (Chronic) Benign prostatic hypertrophy (Chronic) Atrial fibrillation (Chronic) I48.0 Paroxysmal atrial fibrillation 10/09/20 [facility] Cardiology Medical History (Updated 08/01/23 @ 02:14 by Micheal Wong MD) Atrial fibrillation with RVR H/O: urinary stone Hx of colonic polyps Surgical History (Updated 07/18/23 @ 10:25 by Rosy Alejandra) R small trigger finger release (05/28/16) proh[place] S/P ablation of atrial fibrillation (10/2018) steriotactic brain bx (01/27/15) [facility] bx brain abscess Family History Mother , HF at age 89. Heart disease Father , stroke HBP at age 90. Essential hypertension Brother , heart at age 82. No problems noted. Brother No problems noted. 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 Pets and animals: No Sexually active: Yes Do you think of yourself as: straight/heterosexual Current gender identity: male What is your relationship status?: How often do you talk on the phone with friends or family?: three or more times per week How often do you get together with friends or relatives?: three or more times per week Do you belong to any clubs or organized social groups?: yes Panel score (0-1 are the most socially isolated patients): 3 What type of physical activity do you participate in: none Cassidy/Christianity: None Special cassidy needs: No Seatbelt use: always Drive intox or ride w/intox yard driver: No Working smoke detector in home: Yes Fire extinguisher in home: Yes Carbon monox detector in home: Yes Do you feel safe at home: Yes Do you feel safe in your relationship?: Yes
[2023-08-01] MEDS: Aspirin E.C. 81 MG TABEC PO (09:05)
[2023-08-01] MEDS: Clopidogrel 75 MG TAB PO (09:06)
[2023-08-01] MEDS: Lisinopril 20 MG TAB PO (09:06)
--- NOTE | 2023-08-01 09:23 | NUR.NOTE ---
EKG is taken with patient in sitting position in bed. BP goes down to 80/52 and heart rate fluctuates from 90's to around 115. Patient becomes dizzy, EKG is taken, information shared with Dr. Ewing and patient's BP returns to normal level of 115/74 when placed supine with head of bed at 11 percent.Nursing Note:
--- NOTE | 2023-08-01 09:30 | RT.EKG_ITS ---
APPROVED REPORT Exam: Resting ECG Reason for Exam: near syncope Patient Location: I HR:113 bpm ECG Measurements Heart Rate [address] [place] [id number] P [id number] QRSd 85 QRS 11 QT 348 T 114 QTc 478 Conclusion Atrial fibrillation...V-rate 79-130, irreg A-activity Low voltage, precordial leads...precordial leads <1.0mV Nonspecific T abnrm, anterolateral leads...T <-0.10mV, I aVL V2-V6 Borderline prolonged QT interval...QTc >475mS
--- NOTE | 2023-08-01 09:32 | NUR.NOTE ---
Per Dr. Ewing, patient will not undergo an MRI at this time.Nursing Note:
--- NOTE | 2023-08-01 09:48 | NUR.NOTE ---
[facility]
[2023-08-01] MEDS: Lactated Ringers 500 ML 250 ML IV (09:59)
[2023-08-01 10:37] LABS: Troponin I < 50 ng/L (<or=60)
[2023-08-01] MEDS: Timolol 0.5% 5 ML BTL OP ×2 (10:51→21:02)
[2023-08-01] MEDS: Normal Saline Flush 10 ML SYR IVP ×4 (10:54→23:42)
[2023-08-01] MEDS: Digoxin 0.5 MG/2 ML AMP 0.25 MG IVP ×3 (10:55→21:01)
--- NOTE | 2023-08-01 10:56 | PT.INNT ---
PT Notes Visit Reasons: uti, syncope, afib rvr Patient on hold per nursing due being hypotensive. Will check tomorrow to see if he is medically ready for PT consult.
[2023-08-01] MEDS: Methocarbamol 750 MG TAB PO ×2 (11:55→21:01)
--- NOTE | 2023-08-01 11:57 | NUR.NOTE ---
Patient given methocarbamol for pain of 2 in left flank and lower left back.
--- NOTE | 2023-08-01 16:14 | PHA.REVIEW2 ---
Pharmacy Admission Review - Admission Clinical Review (Last Updated 06/24/23 @ 16:42 by Gala Sepulveda) Low back pain (Acute) Acute UTI (Acute) venom-honey bee [bee venom (honey bee)] Allergy (Severe, Verified 07/31/23 21:25) HIVES TACHYCARDIA Penicillins Allergy (Intermediate, Verified 07/31/23 21:25) HIVES levetiracetam [From Kera] Adverse Reaction (Severe, Verified 07/31/23 21:25) leukopenia prednisone Adverse Reaction (Severe, Verified 07/31/23 21:25) rectal bleeding and diarrhea aspirin Adverse Reaction (Intermediate, Verified 07/31/23 21:25) Nosebleeds ceftriaxone Adverse Reaction (Intermediate, Verified 07/31/23 21:25) Leukopenia simvastatin Adverse Reaction (Intermediate, Verified 07/31/23 21:25) LEG PAIN DR MCLEOD SHRIMP Allergy (Intermediate, Uncoded 07/31/23 21:25) HIVES , NAUSEA Resuscitation Status Full Code Height 5 ft 10 in Weight 91.7 kg - Renal Dosing Renal Dosing: BUN 15 mg/dL (7-18) 08/01/23 07:38 Creatinine 0.7 mg/dL (0.70-1.30) 08/01/23 07:38 Medications needing adjustments: Reviewed (Crcl ~70.4 mL/min current meds okay) - Anticoagulation Anticoagulation: Hgb 13.4 g/dL (13.5-17.5) L 08/01/23 07:38 Hct 38.4 % (40.0-50.0) L 08/01/23 07:38 Plt Count 329 10^3/uL (130-400) 08/01/23 07:38 INR 1.1 (0.9-1.1) 07/31/23 21:00 Creatinine 0.7 mg/dL (0.70-1.30) 08/01/23 07:38 DVT Prophylaxis: N/A Therapeutic Anticoagulation: Reviewed Medications: Rivaroxaban - Opiate Usage Evaluate Pain Scale/Pains Meds: Intervened Scheduled Bowel Reg ordered if on Opiates?: No (will mention to provider) - Relevant Labs Sodium 136 mmol/L (136-145) 08/01/23 07:38 Potassium 4.2 mmol/L (3.5-5.1) 09/01/23 07:38 Chloride 103 mmol/L (98-107) 08/01/23 07:38 Magnesium 1.8 mg/dL (1.8-2.4) 08/01/23 07:38 Electrolytes, C-Reactive P, ESR: Reviewed - DM Control DM Control: Glucose 125 mg/dL (74-106) H 08/01/23 07:38 DM Control: Reviewed (no DM noted in pts medical history, A1c 5.4 on 05/19/23) - Cardiac Review Cardiac Review: Troponin I < 50 ng/L (<or=60) 08/01/23 10:00 NT-Pro-B Natriuret Pep 520 pg/mL (<300) H 07/31/23 21:00 BP, HR, EF%: Reviewed (HR and BP has been up and down some since admission/adjustment of medication.) - Qtc Review QTc: Reviewed (QTc 459 on admission and 486 this morning.) - IV to PO Switch IV Medications: Reviewed - Home Meds Relevent Home Meds Not ordered & why?: enoxaparin- unverified, looks like was short term RX for bridging prior to surgery as the patient is on rivaroxaban - Current meds Current Medication Order Review: Intervened (Discontinued duplicate medication errors) - Comments Comments/Follow Ups: Watch HR, BP, labs, for culture results and for med changes. Antibiotic Review - Pharmacy Antibiotic Review Pharmacy Antibiotic Activity: C/S review, Reviewed, no change - Antibiotic Information Antibiotic Review Info: Levofloxacin ordered for UTI. Urine culture pending.
[2023-08-01] MEDS: Rivaroxaban 10 MG TABLET 20 MG PO (16:29)
[2023-08-01] MEDS: Lactated Ringers 500 ML IV (17:42)
[2023-08-01] MEDS: Atorvastatin 40 MG TAB 80 MG PO (21:01)
[2023-08-01] MEDS: levoFLOXacin 500 MG, levoFLOXacin 250 MG 750 MG PO (21:05)
--- NOTE | 2023-08-01 22:00 | W.PM.PROGNOT ---
Date of Service Date of service: 08/01/23 Time of Service: 08:30 Assessment and Plan Assessment and plan (1) Syncope: Status: Chronic Assessment and plan: Near syncope. Multiple events here today which are all a little different from each other. There is possibly an orthostatic component, a bradycardic component. Hydrate. Monitor on tele. Treat UTI. Control HR with digoxin. (2) Atrial fibrillation: Status: Chronic Assessment and plan: As above (3) Acute UTI: Status: Acute Assessment and plan: Present on admission. BPH and bladder thickening on CT. No stones/hydronephrosis. Continue levofloxacin. Await urine C&S. (4) Low back pain: Status: Resolved Assessment and plan: The patient is not in pain at the time of my exam. Pain did not contribute to his events today. I did not feel the patient was safe for the MRI today. (5) DVT prophylaxis: Status: Acute Assessment and plan: On xarelto (6) Discharge planning issues: Status: Acute Assessment and plan: Full code Transfer to the ICU. Total Critical Care Time 45 minutes. Subjective Subjective Interval history since last seen: Mr Flores got dizzy and diaphoretic when sitting up in a chair. He was not hooked up to the monitor at that time, but his HR per pulse oximeter had gone down to the 30s. SBP at the time of the event was in 120s. When he was layed back down and reconnected to the monitor, his HR was in 120s-130s. SBP remained in 120s. Several more dizzy/diaphoretic episodes followed, but none as severe as this, all got better with laying down, and during one of them SBP went down to the 80s. Remains in Afib, No CP, SOB, n/v. Discussed case with [facility] cardiology: I do not feel comfortable up-titrating his CCB if he is having bradycardic spells, though bradycardia per pulse oximeter is not the most reliable. We have not been able to reproduce bradycardia today. The recommendation was for IVF and digoxin. If he has any bradycardic events actually caught on the monitor, we would need to call back. If his heart rate does not slow down with digoxin, we would also call back for cardioversion. The patient had a carotid endarterectomy on 07/11 and was off of anticoagulation for that and would need a ROLAND prior to cardioversion. Exam Narrative Exam Narrative: General: male who looks anxious when trying to sit up in bed, A&Ox3 HEENT: EOMI, MMM Heart: irregularly irregular rhythm, tachycardic Lungs: CTAB Abdomen: soft, nontender, nondistended Extremities: no edema BLEs Objective Last Vital Signs Temp 35.9 C L 08/01/23 16:11 Pulse 65 08/01/23 17:26 Resp 21 08/01/23 17:26 BP 137/55 L 08/01/23 17:26 Pulse Ox 97 08/01/23 15:05 Laboratory Results - last 24 hr 07/31/23 07/31/23 07/31/23 21:00 22:19 23:11 WBC RBC Hgb Hct MCV MCH MCHC RDW Plt Count MPV Immature Gran % Neutrophils % Lymphocytes % Monocytes % Eosinophils % Basophils % Nucleated RBC % Absolute Neutrophils Absolute Lymphocytes Absolute Monocytes Absolute Eosinophils Absolute Basophils Sodium Potassium Chloride Carbon Dioxide Anion Gap BUN Creatinine Est GFR (CKD-EPI 2020) Glucose Calcium Magnesium Troponin I < 50 Free T4 1.11 Urine Color Yellow Urine Clarity Clear Urine pH 5.0 Ur Specific [place] <= 1.005 Urine Protein Negative Urine Ketones Trace H Urine Blood Small H Urine Nitrite Negative Urine Bilirubin Negative Urine Urobilinogen 0.2 Ur Leukocyte Esterase Small H Urine RBC 10-20 H Urine WBC 10-20 H Ur Epithelial Cells Negative Urine Crystals Negative Urine Bacteria Negative Urine Mucus Trace Ur Culture Indicated? Yes Urine Glucose Negative Ethyl Alcohol < 3.0 08/01/23 08/01/23 08/01/23 07:38 07:38 10:00 WBC 8.75 RBC 4.15 L Hgb 13.4 L Hct 38.4 L MCV 93 MCH 32.3 MCHC 34.9 RDW 12.9 Plt Count 329 MPV 9.8 Immature Gran % 0.5 Neutrophils % 66.7 Lymphocytes % 16.8 Monocytes % 8.9 Eosinophils % 6.5 Basophils % 0.6 Nucleated RBC % 0.0 Absolute Neutrophils 5.84 Absolute Lymphocytes 1.47 Absolute Monocytes 0.78 Absolute Eosinophils 0.57 Absolute Basophils 0.05 Sodium 136 Potassium 4.2 Chloride 103 Carbon Dioxide 21.7 Anion Gap 11.3 H BUN 15 Creatinine 0.7 Est GFR (CKD-EPI 2020) 94.90 Glucose 125 H Calcium 9.3 Magnesium 1.8 Troponin I < 50 Free T4 Urine Color Urine Clarity Urine pH Ur Specific [place] Urine Protein Urine Ketones Urine Blood Urine Nitrite Urine Bilirubin Urine Urobilinogen Ur Leukocyte Esterase Urine RBC Urine WBC Ur Epithelial Cells Urine Crystals Urine Bacteria Urine Mucus Ur Culture Indicated? Urine Glucose Ethyl Alcohol PAWSS Have you Been Recently Intoxicated or Drunk Within the Last 30 days?: Yes Have you Ever Experienced Previous Episodes of Alcohol Withdrawal?: No Have you ever Experienced Withdrawal Seizures?: No Have you ever Experienced Delirium Tremens(DT)s?: No Have you ever undergone Alcohol Rehabilitation Treatment (i.e, inpt ot outpatient treatment programs)?: No Have you ever Experienced Blackouts?: No Have you ever Combined Alcohol with other Downers within the last 90 days?: No Have you ever Combined Alcohol with any other Substance of Abuse during the last 90 days?: No Positive Blood Alcohol level on Presentation? [PCS.BAL]: No Evidence of Increased Autonomic Activity (i.e. HR>120, tremor, sweating, agitation, nausea)?: No Result: 1 Time Spent with Patient Time Spent with Patient: 35-49 minutes Time was spent: preparing to see the patient(eg.review tests), obtaining and/or reviewing separately otained hiistory, ordering medications,tests, procedures, referring, communicating with other health career technical education teacher, indepentently interpreting results, counseling the patient and care coordination
[2023-08-02] VITALS (205 sets, daily range): BP systolic 102–149; BP diastolic 41–106; PULSE 55–131; RESP 8–28; TEMP 36.2–36.8; O2SAT 95–100
[2023-08-02] MEDS: Digoxin 0.5 MG/2 ML AMP 0.25 MG IVP (03:51)
[2023-08-02] MEDS: Normal Saline Flush 10 ML SYR IVP ×3 (04:13→22:54)
[2023-08-02 05:15] LABS: Abs Immature Grans 0.02 10^3/uL (0.0-0.06); Absolute Basophil Count 0.05 10^3/uL (0.0-0.2); Absolute Eosinophil Count 0.63 10^3/uL (0.0-0.7); Absolute Lymphocyte Count 1.47 10^3/uL (1.2-3.4); Absolute Monocyte Count 0.73 10^3/uL (0.1-0.8); Absolute Neutrophil Count 5.76 10^3/uL (1.2-6.7); Basophils % 0.6; Eosinophils % 7.3; HCT 37.3 % (40.0-50.0); HGB 12.8 g/dL (13.5-17.5); Immature Grans % 0.2; MCH 32.2 pg (27.0-33.0); MCHC 34.3 % (32.0-36.0); MCV 94 fL (80-95); Monocytes % 8.4; Neutrophils % 66.5; Platelet Count 304 10^3/uL (130-400); RBC 3.97 10^6/uL (4.36-5.78); WBC 8.66 10^3/uL (4.4-10.8)
[2023-08-02 05:26] LABS: Anion Gap 5.3 mmol/L (3-11); BUN 17 mg/dL (7-18); CO2 26.7 mmol/L (21.0-32.0); CREATININE 0.8 mg/dL (0.70-1.30); Calcium 9.1 mg/dL (8.5-10.1); Chloride 105 mmol/L (98-107); Estimated GFR 91.15 (mL/min/1.73m2); Glucose 127 mg/dL (74-106); Magnesium 1.8 mg/dL (1.8-2.4); Potassium 4.2 mmol/L (3.5-5.1); Sodium 137 mmol/L (136-145)
[2023-08-02] MEDS: Aspirin E.C. 81 MG TABEC PO (09:21)
[2023-08-02] MEDS: Clopidogrel 75 MG TAB PO (09:21)
--- NOTE | 2023-08-02 09:25 | NUR.NOTE ---
Physical therapy begins working with patient.Nursing Note:
[2023-08-02] MEDS: Timolol 0.5% 5 ML BTL OP ×2 (09:44→19:24)
--- NOTE | 2023-08-02 09:44 | IN_ITS ---
Date of service: 08/02/23 Time of Service: 09:15 PT Notes Visit Reasons: uti, syncope, afib rvr Inpatient Physical Therapy Evaluation Date: August 02, 2023 Referring Doctor: Liliana Ewing PT Orders: PT CONSULT: Limited ability Precautions: Standard Patient Profile/Admitting Diagnosis: Tomas is a 77 year old male admitted secondary to UTI, Syncope, Afib RVR PMHX: (Updated 08/01/23 @ 02:14 by Micheal Wong MD) Low back pain (Acute) Atrial fibrillation (Chronic) Syncope (Chronic) Acute UTI (Acute) History of left-sided carotid end[facility] (Acute[facility]) Complication, blocked Lutz catheter (Acute) H/O carotid endarterectomy (Acute) Paroxysmal A-fib (Acute) Peripheral artery disease (Acute) Non-healing skin lesion (Acute) Hyperlipidemia, unspecified (Acute) Acute ischemic stroke (Acute 05/18/23) Occlusion of right vertebral artery (Acute) Carotid stenosis, bilateral (Chronic) I65.21 - Right-sided extracranial carotid artery stenosisIschemic stroke (Acute) Macrocytosis without anemia (Acute) Primary open angle glaucoma (POAG) of right eye, mild stage (Chronic) Cough (Acute) Tricuspid regurgitation (Acute) Beat, premature ventricular (Acute ~08/2022) 09/11/22 Cardiology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 (Acute) Syncope (Chronic) Prolonged QT interval (Acute) Atrial tachycardia determined by electrocardiography (Acute) Internal hemorrhoids (Acute) Blood glucose abnormal (Acute 11/03/14) Trigger middle finger of right hand (Acute 04/25/16) Abdominal aortic aneurysm (AAA) 3.0 cm to 5.5 cm in diameter in male (Chronic) Found in October 2018, needs to be rechecked every 3 yearsPure hypercholesterolemia (Chronic 01/31/12) goal LDL<70 Metabolic syndrome X (Chronic 02/15/13) goal 215# 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 s/p stenting x 5 2010 or 2011 at [facility] b.? presenting symptom was primarily fatigue Hypertension (Chronic) Benign prostatic hypertrophy (Chronic) Atrial fibrillation (Chronic) I48.0? 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 Equipment Owned/DME: Cane Subjective: Tomas notes overall feeling better. Was able to get up with nursing for breakfast without difficulty. Was happy with this. Still having L sided LBP limiting his ability to stand upright in weight bearing position. Does have history of herniated disc. Tomas notes his main intention of coming to the ED was his back until he passed out while signing in. Objective: General Observation: telemetry, IV access Mental Status: Very pleasant, alert and oriented x3 Pain: .5/10 at rest, 4/10 with activity to his left sided low back Vital Signs: BP 135/76 mmHg; O2 saturation 98% on room air, HR ranged from 88- 125 bpm Posture: forwardly flexed in standing with complaints of low back pain. Unable to assume neutral spine in standing due to pain- lacks 20 degrees from neutral. ROM: Right Upper Extremity: Demonstrates WNL AROM R UE with some end range discomfort forward elevation due to an old RTC injury Left Upper Extremity: Demonstrates WNL AROM L UE Right Lower Extremity: Demonstrates WNL AROM R LE Left Lower Extremity: Demonstrates WNL AROM L LE. Tolerable straight leg raise 50 degrees Strength: Right Upper Extremity: Good myotomal strength R UE with mild pain upon resistance to GH flexion Left Upper Extremity: Good myotomal strength L UE Right Lower Extremity: Hip flexion 5/5, knee extension/flexion 5/5, DF 5/5 Left Lower Extremity: Hip flexion 4/5 with mild L sided low back pain. Knee flexion/extension 5/5, DF 5/5 Sensation: Intact to light touch. Declines any parasthesias Bed Mobility/Transfers: Supine-Sit: Independent Sit-stand: Supervision Stand-sit: Supervision Sit-Supine: Independent Bed-Chair: Supervision Chair-Bed: Supervision Gait: Ambulates without assistive device from bed to chair forward flexed at the lumbar spine due to left sided LBP Balance: Static Sitting: Normal Dynamic Sitting: Normal Static Standing: Good Dynamic Standing: Fair Special Tests: Mobility Limitations Standardized Measure [facility] AM-PAC 6 clicks Basic Mobility Inpatient Short Form: Raw Score: 22 CMS Score: 21% Informed Consent/Education: Patient instructed in purpose of PT consult and plan of care. Assessment: Patient is a 77 year old male referred to physical therapy services with the diagnosis of UTI, Syncope, Afib RVR. Patient presents with clinical signs and symptoms consistent with diagnosis along with left sided LBP, as demonstrated by the following impairment level findings: decreased mobility tolerance. Impairments are contributing to the following functional limitations: Patient is assessed as a Low 95869 complexity based on the following: History: As Above Examination: As Above Presentation: Stable Decision Making: Low Goals: Goals X1 week 1. Supine-Sit independent 2. Sit-Supine independent 3. Sit-Stand independent 4. Stand-Sit independent 5. Bed-Chair independent 6. Chair-Bed independent 7. Gait independent with use of assistive device for improved posture reducing stress left low back 8. Stairs independent with use of railing 3-5 steps 9. Independent with home exercise program Plan of Care/Treatment Plan: 1-2x/day, 7 days/week x 1 week. Plan of care has been reviewed with the AUDITING CODER providing the service under Physical Therapy direction. Initiate Physical Therapy intervention for strengthening, bed mobility, transfers, gait, stairs, balance training, use of assistive device. DISCHARGE RECOMMENDATIONS: Home with outpatient PT for his low back pain TREATMENT CODE/TIME: 57341/30 minutes/9:15 am [facility] Disclaimer: This note was created using [employer] voice recognition software. It was reviewed for major content. However, there may be multiple small discrepancies and errors due to the voice recognition aspects of the software.
--- NOTE | 2023-08-02 11:28 | NUR.NOTE ---
Patient visiting with his . Vital signs stable. Patient is asymtomatic.Nursing Note:
--- NOTE | 2023-08-02 13:57 | W.PM.PROGNOT ---
Date of Service Date of service: 08/02/23 Time of Service: 10:55 Assessment and Plan Assessment and plan (1) Syncope: Status: Acute Assessment and plan: Near syncope. Multiple events yesterday and, evidently, for a couple of days prior to admission. None today so far. Continue digoxin. Continue treatment of UTI. Encourage PO fluids. Minimize vagal stimuli - I did write for a bowel regimen. (2) Atrial fibrillation: Status: Chronic Assessment and plan: As above (3) Acute UTI: Status: Acute Assessment and plan: Present on admission. Urine C&S with 2 GNR >100,000 CFU. BPH and bladder thickening on CT. No stones/hydronephrosis. No evidence of urinary retention so far by bladder scans. Continue bladder scans. Continue levofloxacin. Await urine C&S. (4) Low back pain: Status: Acute Assessment and plan: Alternate ice and heat, continue lidocaine patches. Will obtain MRI on Friday if the patient is still in pain and is in the hospital (this is Labor weekend). (5) DVT prophylaxis: Status: Acute Assessment and plan: On xarelto (6) Discharge planning issues: Status: Acute Assessment and plan: Full code Can likely transfer out of the ICU later today. Subjective Subjective Interval history since last seen: Feels better today. Denies dizziness with change of position and with ativity today, which is a big improvement from how he felt yesterday. The HR has been in the 70s. Denies CP, SOB, n/v. Constipated, per nursing. Reports back pain which is worse when he is standing up. Pain is controlled when sitting. INterested in getting an MRI of his back. Exam Narrative Exam Narrative: General: male who looks comfortable sitting up in bed, A&Ox3 HEENT: EOMI, MMM Heart: irregularly irregular rhythm, HR in the 70s Lungs: CTAB Abdomen: soft, nontender, nondistended Extremities: no edema BLEs Objective Last Vital Signs Temp 36.4 C L 08/02/23 13:10 Pulse 98 H 08/02/23 13:10 Resp 20 08/02/23 13:10 BP 131/50 L 08/02/23 13:10 Pulse Ox 97 08/02/23 13:10 Laboratory Results - last 24 hr 08/02/23 08/02/23 05:00 05:00 WBC 8.66 RBC 3.97 L Hgb 12.8 L Hct 37.3 L MCV 94 MCH 32.2 MCHC 34.3 RDW 13.0 Plt Count 304 MPV 10.0 Immature Gran % 0.2 Neutrophils % 66.5 Lymphocytes % 17.0 Monocytes % 8.4 Eosinophils % 7.3 Basophils % 0.6 Nucleated RBC % 0.0 Absolute Neutrophils 5.76 Absolute Lymphocytes 1.47 Absolute Monocytes 0.73 Absolute Eosinophils 0.63 Absolute Basophils 0.05 Sodium 137 Potassium 4.2 Chloride 105 Carbon Dioxide 26.7 Anion Gap 5.3 BUN 17 Creatinine 0.8 Est GFR (CKD-EPI 2020) 91.15 Glucose 127 H Calcium 9.1 Magnesium 1.8 PAWSS Have you Been Recently Intoxicated or Drunk Within the Last 30 days?: Yes Have you Ever Experienced Previous Episodes of Alcohol Withdrawal?: No Have you ever Experienced Withdrawal Seizures?: No Have you ever Experienced Delirium Tremens(DT)s?: No Have you ever undergone Alcohol Rehabilitation Treatment (i.e, inpt ot outpatient treatment programs)?: No Have you ever Experienced Blackouts?: No Have you ever Combined Alcohol with other Downers within the last 90 days?: No Have you ever Combined Alcohol with any other Substance of Abuse during the last 90 days?: No Positive Blood Alcohol level on Presentation? [PCS.BAL]: No Evidence of Increased Autonomic Activity (i.e. HR>120, tremor, sweating, agitation, nausea)?: No Result: 1 Time Spent with Patient Time Spent with Patient: 25-34 minutes Time was spent: preparing to see the patient(eg.review tests), obtaining and/or reviewing separately otained hiistory, ordering medications,tests, procedures, referring, communicating with other health personal caregiver, indepentently interpreting results, counseling the patient and care coordination
[2023-08-02] MEDS: Rivaroxaban 10 MG TABLET 20 MG PO (17:03)
[2023-08-02] MEDS: Atorvastatin 40 MG TAB 80 MG PO (19:23)
[2023-08-02] MEDS: Methocarbamol 750 MG TAB PO (19:37)
[2023-08-02] MEDS: levoFLOXacin 500 MG, levoFLOXacin 250 MG 750 MG PO (20:24)
[2023-08-02] MEDS: HYDROcodone 10/Acetaminophen 325 TAB PO (22:59)
--- NOTE | 2023-08-02 23:55 | NUR.NOTE ---
Nursing Note: Patient set up and completed oral care. Discussed pain management. Medicated with Vicodin 1 tablet for pain control. NIBP removed after assessment. Lotion to back and hip region, no evidence of inflammation/skin breakdown.
[2023-08-03] VITALS (17 sets, daily range): BP systolic 116–177; BP diastolic 67–80; PULSE 62–113; RESP 9–23; TEMP 36.2–36.5; O2SAT 97–98
[2023-08-03] MEDS: Normal Saline Flush 10 ML SYR IVP (05:32)
[2023-08-03 06:10] LABS: Abs Immature Grans 0.02 10^3/uL (0.0-0.06); Absolute Basophil Count 0.04 10^3/uL (0.0-0.2); Absolute Eosinophil Count 0.87 10^3/uL (0.0-0.7); Absolute Lymphocyte Count 1.84 10^3/uL (1.2-3.4); Absolute Monocyte Count 0.68 10^3/uL (0.1-0.8); Absolute Neutrophil Count 4.48 10^3/uL (1.2-6.7); Basophils % 0.5; HCT 37.3 % (40.0-50.0); HGB 12.6 g/dL (13.5-17.5); Immature Grans % 0.3; Lymphocytes % 23.2; MCHC 33.8 % (32.0-36.0); MCV 95 fL (80-95); MPV 10.4 fL (8.0-11.0); Monocytes % 8.6; Neutrophils % 56.4; Platelet Count 294 10^3/uL (130-400); RBC 3.94 10^6/uL (4.36-5.78); RDW 12.9 % (11.8-14.1); RDW-SD 44.5 fL; WBC 7.93 10^3/uL (4.4-10.8)
[2023-08-03 06:25] LABS: Anion Gap 7.5 mmol/L (3-11); BUN 18 mg/dL (7-18); CO2 27.5 mmol/L (21.0-32.0); CREATININE 0.9 mg/dL (0.70-1.30); Calcium 9.1 mg/dL (8.5-10.1); Chloride 104 mmol/L (98-107); Estimated GFR 87.96 (mL/min/1.73m2); Glucose 122 mg/dL (74-106); Magnesium 1.8 mg/dL (1.8-2.4); Potassium 4.5 mmol/L (3.5-5.1); Sodium 139 mmol/L (136-145)
[2023-08-03 06:40] LABS: Digoxin 1.63 ng/mL (0.90-2.00)
[2023-08-03] MEDS: Timolol 0.5% 5 ML BTL OP (08:26)
[2023-08-03] MEDS: Clopidogrel 75 MG TAB PO (08:26)
[2023-08-03] MEDS: Docusate Sodium 100 MG CAP PO (08:26)
[2023-08-03] MEDS: Aspirin E.C. 81 MG TABEC PO (08:26)
[2023-08-03] MEDS: Digoxin 0.125 MG TAB PO (08:26)
--- NOTE | 2023-08-03 10:55 | PTTR_ITS ---
Date of service: 08/03/23 Time of Service: 10:30 PT Notes Visit Reasons: uti, syncope, afib rvr Inpatient Physical Therapy Treatment Note [facility] Date: August 03, 2023 PRECAUTIONS:Standard SUBJECTIVE: Tomas notes overall doing well this morning. Back remains painful jani in standing. Might be able to go home this afternoon. OBJECTIVE: ? PAIN: 4-5/10 L sided LBP in standing, at rest 1/10 on VAS ??? Therapeutic Activities (48006e8-34 minutes): Direct one-on-one instruction in dynamic activities to improve functional performance. Incorporated supine pelvic tilts for improved core engagement. Completed seated marching x15 reps alternately followed by seated hip adduction/abduction isometrics 10x5 seconds. ?? BED MOBILITY/TRANSFERS? Rolling L/R: Independent Supine-sit: Independent ? Sit-supine: Independent ? Sit-stand: Independent? Stand-sit: Independent? Bed-Chair: FWW, Supervision? Chair-bed: FWW, Supervision Provided skilled cues and instruction on performance and technique throughout. ? GAIT? Assistive Device: FWW ? Weight bearing: Full WBing Assist: Supervision ? Distance:? 20 ft Manual Therapy ([id number] minutes) Provided soft tissue stretching bilateral LE to include hamstring, SKTC, piriformis and hook lying lumbar rotation. provided STM throughout the L sided lumbar paraspinals with TPR also provided. ? ASSESSMENT:? Tomas overall demonstrating improved functional transfers, and mobility. Recommend use of FWW to assist in support of his LB with ambulation. LBP continues to intensify with WBing and neutral posturing. Continues to want to forwardly flex to take pressure on his spine. This improved with cueing for core engagement and use of FWW. PLAN: Continue with current POC. TREATMENT CODE/TIME: 28882o9(10minutes),44491x0(15 minutes) 25minutes; 10:30 am Doris Coleman, MPT
--- NOTE | 2023-08-03 16:14 | W.PM.DS.N ---
Date of service: 08/03/23 Time of Service: 16:14 DS: Diagnosis Discharge Diagnosis (1) Syncope: Status: Acute (2) Atrial fibrillation with RVR: Status: Acute (3) Bradycardia: Status: Acute (4) Acute UTI: Status: Acute Asessment and Plan: Due to two different species of GNR, present on admission, speciation/sensitivities pending. (5) Orthostatic hypotension: Status: Acute (6) Low back pain: Status: Acute (7) Enlarged prostate: Status: Acute (8) Atherosclerosis of aorta: Status: Chronic Discharge Plan Disposition Patient Disposition: Home Condition: Improving Discharge Details Reason For Visit: uti, syncope, afib rvr Admit Date/Time: 07/31/23 22:51 Admit Provider: Micheal Wong Attending Provider: Micheal Wong Primary Care Provider: Camacho Barrera [facility] Course Hospital Course: Mr Flores is a 77 year old male with PMHx of paroxysmal Afib s/p ablation and cardioversions, on anticoagulation, as well as CVA w/ h/o carotid stenosis s/p carotid endarterectomy on 07/11/23 at [facility], CAD, PAD, who was admitted to [facility] hospitalist service on 08/01/23 for near syncope, having presented to [facility] ED with back pain and having a witnessed episode of near syncope/syncope while in registration. Unfortunately, he was not connected to the monitor at the time, and we do not know the vital signs during this event. When he was finally hooked up to the monitor, he was in Afib with HR in 130s. This was treated with IV diltiazem and initiation of PO diltiazem 30 mg TID. He was also found to have a UTI for which he was initiated on levofloxacin. The patient had several more of these events within the next 24 hrs, however, during one of which he was sat up to transfer to the stretcher to go have an MRI of his lumbar spine. He became diaphoretic. His SBP was in 120s, but HR, according to the pulse oximeter was in the 30s. Unfortunately, he again was not connected to the monitor at that time and that HR could not be confirmed. He felt better when supine, with SBPs still in 120s and HR back up to 120s-130s. During one of the other episodes, the patient was sat up and his systolic blood pressure dropped to 80. At that point, he was given gentle IVF. He ruled out for ACS, but cardiology consultation was sought for a possible ROLAND/cardioversion at [facility] since we were having difficulties controlling heart rates with a possible episode of bradycardia; however, this bradycardia was by pulse ox, and this is not the most reliable measure of HR, and the recommendation we received from [facility] cardiology was to start digoxin in place of diltiazem as well as treat infection and continue IVF. The patient was transferred to the ICU for closer monitoring. The following day, the patient had not had a single episode of dizziness/near syncope/orthostasis. He worked with physical therapy, and even then he did not have any recurrent episodes. He was loaded with digoxin and his heart rate became well controlled, primarily in 70s and 80s. His urine C&S grew two different species of GNR >100,000 CFU. His CTA chest/abdomen/pelvis done on admission showed an enlarged prostate and bladder wall thickening. He was not retaining urine by bladder scans. He clinically responded well to levofloxacin. Today, the patient continues to feel well. His heart rates remain controlled. His digoxin level is 1.63 ng/mL. His back pain is controlled on the current pain regimen. He was downgraded to the medical surgical floor and is being discharged home today with a prescription for the balance of his course of levofloxacin while the urine cultures are still pending. We will give him a call if the cultures require a change in antibiotics. He is being discharged home with a cardiac event recorder. He is being ordered an outpatient MRI and an echo. He should have bloodwork done on 08/06/23 with results going to his PCP, Dr Barrera. Care for patient as well as completion of his discharge summary on day of discharge took 45 minutes. Home Meds and New Rx's Prescriptions: New docusate sodium [Colace] 100 mg Capsule 100 mg PO BID PRN (Reason: constipation) Qty: 60 0RF Rx Instructions: Take while/if taking hydrocodone digoxin 125 mcg (0.125 mg) Tablet 0.125 mg PO DAILY Qty: 30 0RF levofloxacin 750 mg Tablet 750 mg PO HS Qty: 4 0RF Rx Instructions: start on 08/04/23. methocarbamol 750 mg Tablet 750 - 1,500 mg PO QID PRN PRN (Reason: muscle spasm) Qty: 60 0RF hydrocodone-acetaminophen 5-325 mg tablet 1 - 2 tab PO Q6H MDD 40 mg of hydrocodone PRN (Reason: pain) Qty: 40 0RF naloxone [Narcan] 4 mg/actuation spray,non-aerosol 4 mg intranasal Q3M PRNQty: 2 0RF Rx Instructions: spray 1 dose into ONE nostril; alternate nostrils w each dose until help arrives lidocaine 5 % adhesive patch,medicated 1 patch topical DAILY Qty: 30 0RF Rx Instructions: leave on most painful area for up to 12 hrs Apply to the painful area on your back Continued rivaroxaban 20 mg tablet 20 mg PO DAILY Qty: 90 3RF Hold Instructions: Resume on 05/02/22. Rx Instructions: must administer with evening meal timolol maleate 0.5 % gel forming solution 1 drp ophthalmic (eye) BID clotrimazole 1 % cream 1 applic topical BID Qty: 45 3RF aspirin 81 mg Tablet,Delayed Release (Dr/Ec) 81 mg PO DAILY Qty: 30 0RF atorvastatin 10 mg tablet 80 mg PO DAILY Qty: 90 3RF clopidogrel 75 mg tablet 75 mg PO DAILY Held lisinopril 20 mg tablet 20 mg PO DAILY Hold Instructions: Resume on 08/05/23. Discontinued enoxaparin [Lovenox] 100 mg/mL syringe 100 mg subcut Q12H Patient Comments: not taking Discharge Instructions Instructions: Digoxin (By mouth), Hydrocodone/Acetaminophen (By mouth), Methocarbamol (By mouth), Levofloxacin (By mouth), Naloxone (Into the nose), A-fib (Atrial Fibrillation) (DC), Urinary Tract Infection in Men (DC), Back Pain (ED) Additional Instructions: Return to the hospital with any fever, bleeding, chest pain, shortness of breath, or uncontrollable back pain. Return to the hospital if you are feeling faint. Resume lisinopril in 2 days. Follow up for your bloodwork on 08/06/23 and for the MRI. Follow up with your PCP in 1-2 weeks. We will call you on 08/04/23 if the results of your urine culture warrant a change in antibiotics. Referrals: Camacho Barrera DO [Primary Care Provider] - Activity:: Activity as Tolerated Equipment/Supplies:: cardiac event recorder Diet:: heart healthy Discharge Orders Discharge Orders: Discharge Order (Routine); Ordered 08/03/23 Ordered By: Liliana Ewing Other Ambulatory Orders: Basic Metabolic Panel (Routine) Timeframe: [id number] Facility: [facility] - Location: Laboratory Outpatient - [facility] Ordered By: Liliana Ewing Cardiac Event Recorder (Routine) Timeframe: 1 Day Facility: [facility] - Location: Respiratory Therapy Ordered By: Liliana Ewing Digoxin (Routine) Timeframe: [id number] Facility: [facility] - Location: Laboratory Outpatient - [facility] Ordered By: Liliana Ewing US echocardiogram (Routine) Timeframe: 1 Week Facility: [facility] - Location: DIAGNOSTIC IMAGING DEPT Ordered By: Liliana Ewing MR lumbar spine wo (Routine) Timeframe: 1 Week Facility: [facility] - Location: DIAGNOSTIC IMAGING Ordered By: Liliana Ewing Magnesium (Routine) Timeframe: [id number] Facility: [facility] - Location: Laboratory Outpatient - [facility] Ordered By: Liliana Ewing Discharge Data Discharge Date/Time-TO BE ENTERED AT DEPARTURE: 08/03/23 18:50 DS: Summary Time Spent with Patient providing and/or coordinating discharge services: Greater than 30 minutes Status at Discharge Functional status at discharge: independent ambulation Overall status at discharge: patient is progressing back to baseline Mental Status: mental status grossly normal Speech and Movement: speech and movement normal Mood: congruent mood Affect: normal affect Exam Narrative Exam Narrative: General: male who looks comfortable sitting up in bed, A&Ox3 HEENT: EOMI, MMM Heart: irregularly irregular rhythm, HR in the 70s Lungs: CTAB Abdomen: soft, nontender, nondistended Extremities: no edema BLEs Psych Mental Status: mental status grossly normal Speech and Movement: speech and movement normal Mood: congruent mood Affect: normal affect DS: Data Vitals/I&O Vitals and I&O: Vital Signs Temperature 36.3 C L 08/03/23 15:58 Temperature Source Temporal Artery Scan 08/03/23 15:58 Pulse 66 08/03/23 15:42 Pulse Rhythm Irregular 08/03/23 15:46 Pulse 73 08/03/23 12:47 Respiratory Rate 20 08/03/23 15:58 Respiratory Effort Normal 08/03/23 15:46 Respiratory Depth Normal 08/03/23 15:46 Respiratory Pattern Normal 08/03/23 15:46 Blood Pressure 141/72 H 08/03/23 15:42 Blood Pressure Mean 81 08/03/23 07:16 Blood Pressure Position Supine 08/03/23 04:00 Pulse Oximetry 98 08/03/23 15:58 Oxygen Delivery Method Room Air 08/03/23 15:58 Oxygen Flow Rate 0 08/03/23 15:58 Pain Level 0 08/03/23 13:30 Comment Patient just repositioned self, denies any pain/discomfort. Vitals as documented. 08/03/23 01:15 Intake & Output 08/02/23 08/03/23 08/03/23 23:59 11:59 23:59 Intake Total 810 / 1180 240 / 480 240 / 480 Output Total 1125 / 1800 475 / 675 200 / 675 Balance -315 / -620 -235 / -195 40 / -195 Weight 89.6 kg Intake: Oral 810 / 1180 240 / 480 240 / 480 Output: Urine 1125 / 1800 475 / 675 200 / 675 Other: Urine Color Yellow Yellow Yellow Urine Appearance Clear Clear Clear Urine Odor None Strong Comment Voids per urinal Voids per urinal Stool Size Moderate Stool Characteristics Soft Formed Brown Voiding Methods Urinal Urinal Bedside Commode Data Completed and Pending Completed studies during hospitalization [Text1]: CT chest/abdomen/pelvis; 1. No evidence of aortic dissection.? Stable dilatation of ascending aorta 4.3 cm.? Severe atherosclerotic changes of the descending thoracic and? abdominal aorta. 2. No acute abdominal or pelvic process.? ? Enlarged prostate and bladder wall thickening again noted.? Superimposed cystitis not excluded. CT head: No acute intracranial process. Labs on day of discharge: Labs from last 24 hours 08/03/23 08/03/23 05:35 05:30 WBC 7.93 RBC 3.94 L Hgb 12.6 L Hct 37.3 L MCV 95 MCH 32.0 MCHC 33.8 RDW 12.9 Plt Count 294 MPV 10.4 Immature Gran % 0.3 Neutrophils % 56.4 Lymphocytes % 23.2 Monocytes % 8.6 Eosinophils % 11.0 Basophils % 0.5 Nucleated RBC % 0.0 Absolute Neutrophils 4.48 Absolute Lymphocytes 1.84 Absolute Monocytes 0.68 Absolute Eosinophils 0.87 H Absolute Basophils 0.04 Sodium 139 Potassium 4.5 Chloride 104 Carbon Dioxide 27.5 Anion Gap 7.5 BUN 18 Creatinine 0.9 Est GFR (CKD-EPI 2020) 87.96 Glucose 122 H Calcium 9.1 Magnesium 1.8 Digoxin 1.63 Preliminary micro results at discharge 07/31/23 22:19 Urine Culture - Preliminary Urine - Reflex from Ua Gram Negative Lobo Gram Negative Lobo#2 PFSH All Active Problems (Updated 08/03/23 @ 20:15 by Liliana Ewing MD) Atherosclerosis of aorta (Chronic) Enlarged prostate (Acute) Orthostatic hypotension (Acute) Bradycardia (Acute) Atrial fibrillation with RVR (Acute) Encounter for monitoring digoxin therapy (Acute) Discharge planning issues (Acute) DVT prophylaxis (Acute) Low back pain (Acute) Atrial fibrillation (Chronic) Syncope (Acute) Acute UTI (Acute) History of left-sided carotid endarterectomy (Acute) 07/16/2023 at [facility] Hematuria (Acute) Complication, blocked Lutz catheter (Acute) H/O carotid endarterectomy (Acute) Paroxysmal A-fib (Acute) Peripheral artery disease (Acute) Non-healing skin lesion (Acute) Hyperlipidemia, unspecified (Acute) Acute ischemic stroke (Acute 05/18/23) Occlusion of right vertebral artery (Acute) Carotid stenosis, bilateral (Chronic) I65.21 - Right-sided extracranial carotid artery stenosis Ischemic stroke (Acute) Macrocytosis without anemia (Acute) Primary open angle glaucoma (POAG) of right eye, mild stage (Chronic) Cough (Acute) Tricuspid regurgitation (Acute) Beat, premature ventricular (Acute ~08/2022) 09/11/22 Cardiology 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 (Acute) Syncope (Chronic) Prolonged QT interval (Acute) Atrial tachycardia determined by electrocardiography (Acute) Internal hemorrhoids (Acute) Blood glucose abnormal (Acute 11/03/14) Trigger middle finger of right hand (Acute 04/25/16) Abdominal aortic aneurysm (AAA) 3.0 cm to 5.5 cm in diameter in male (Chronic) Found in October 2018, needs to be rechecked every 3 years Pure hypercholesterolemia (Chronic 01/31/12) goal LDL<70 Metabolic syndrome X (Chronic 02/15/13) goal 215# 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 s/p stenting x 5 2010 or 2011 at [facility] b. presenting symptom was primarily fatigue Hypertension (Chronic) Benign prostatic hypertrophy (Chronic) Atrial fibrillation (Chronic) I48.0 Paroxysmal atrial fibrillation 10/09/20 [facility] Cardiology Medical History (Updated 08/03/23 @ 20:15 by Liliana Ewing MD) H/O: urinary stone Hx of colonic polyps Surgical History (Updated 07/18/23 @ 10:25 by Rosy Alejandra) R small trigger finger release (05/28/16) [place] S/P ablation of atrial fibrillation (10/2018) steriotactic brain bx (01/27/15) [facility] bx brain abscess Family History Mother , HF at age 89. Heart disease Father , stroke HBP at age 90. Essential hypertension Brother , heart at age 82. No problems noted. Brother No problems noted. 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 Pets and animals: No Sexually active: Yes Do you think of yourself as: straight/heterosexual Current gender identity: male What is your relationship status?: How often do you talk on the phone with friends or family?: three or more times per week How often do you get together with friends or relatives?: three or more times per week Do you belong to any clubs or organized social groups?: yes Panel score (0-1 are the most socially isolated patients): 3 What type of physical activity do you participate in: none Cassidy/Voodoo: None Special cassidy needs: No Seatbelt use: always Drive intox or ride w/intox 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
[2023-08-03] MEDS: Rivaroxaban 10 MG TABLET 20 MG PO (16:30)
[2023-08-03] MEDS: levoFLOXacin 500 MG, levoFLOXacin 250 MG 750 MG PO (16:31)
--- NOTE | 2023-08-05 13:00 | PT.INDS ---
Date of service: 08/05/23 Time of Service: 13:01 PT Notes Visit Reasons: uti, syncope, afib rvr Physical Therapy Inpatient Discharge Summary Date:?08/05/2023 Date of service: 08/02/2023 through 08/03/2023 This is a clinical summary of care provided for the duration of dates listed above. No charge was made in the completion of this documentation. Referring Doctor:Nick Ewing PT Orders: PT CONSULT: Limited ability Precautions: Standard Patient Profile/Admitting Diagnosis:? Tomas is a 77 year old male admitted secondary to?UTI, Syncope, Afib RVR discharged to home on 08/03/[address] services in place. PMHX: All Active problems(Updated 08/01/23 @ 02:14 by Micheal Wong MD) Low back pain (Acute) Atrial fibrillation (Chronic) Syncope (Chronic) Acute UTI (Acute) [place] of left-sided carotid [place]Ac[place] [facility] [place]) Complication, blocked Lutz catheter (Acute) H/O carotid endarterectomy (Acute) Paroxysmal A-fib (Acute) Peripheral artery disease (Acute) Non-healing skin lesion (Acute) Hyperlipidemia, unspecified (Acute) Acute ischemic stroke (Acute 05/18/23) Occlusion of right vertebral artery (Acute) Carotid stenosis, bilateral (Chronic) I65.21 - Right-sided extracranial carotid artery stenosisIschemic stroke (Acute) Macrocytosis without anemia (Acute) Primary open angle glaucoma (POAG) of right eye, mild stage (Chronic) Cough (Acute) Tricuspid regurgitation (Acute) Beat, premature ventricular (Acute ~08/2022) 09/11/22 Cardiology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 (Acute) Syncope (Chronic) Prolonged QT interval (Acute) Atrial tachycardia determined by electrocardiography (Acute) Internal hemorrhoids (Acute) Blood glucose abnormal (Acute 11/03/14) Trigger middle finger of right hand (Acute 04/25/16) Abdominal aortic aneurysm (AAA) 3.0 cm to 5.5 cm in diameter in male (Chronic) Found in October 2018, needs to be rechecked every 3 yearsPure hypercholesterolemia (Chronic 01/31/12) goal LDL<70 Metabolic syndrome X (Chronic 02/15/13) goal 215# 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 s/p stenting x 5 2010 or 2011 at [facility] b.? presenting symptom was primarily fatigue Hypertension (Chronic) Benign prostatic hypertrophy (Chronic) Atrial fibrillation (Chronic) I48.0? 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 Equipment Owned/DME: Cane Subjective: NT. See most recent [employer] [employer] notes. Objective:? General Observation: NT. See most recent [employer] notes. Mental Status: NT. See most recent [employer] notes. Pain: . NT. See most recent [employer] [employer] notes. Vital Signs: NT. See most recent [employer] notes. ROM: Right Upper Extremity: Demonstrates WNL AROM R UE with some end range discomfort forward elevation due to an old RTC injury Left Upper Extremity: Demonstrates WNL AROM L UE Right Lower Extremity: Demonstrates WNL AROM R LE Left Lower Extremity: Demonstrates WNL AROM L LE.? Tolerable straight leg raise 50 degrees Strength: Right Upper Extremity: Good myotomal strength R UE with mild pain upon resistance to GH flexion Left Upper Extremity: Good myotomal strength L UE Right Lower Extremity: Hip flexion 5/5, knee extension/flexion 5/5, DF 5/5 Left Lower Extremity: Hip flexion 4/5 with mild L sided low back pain. Knee flexion/extension 5/5, DF 5/5 Sensation:?Intact to light touch. Declines any parasthesias BED MOBILITY/TRANSFERS?Rolling L/R: Independent ?Supine-sit: Independent ?Sit-supine: Independent ?Sit-stand: Independent?Stand-sit: Independent?Bed-Chair: FWW, Supervision?Chair-bed: FWW, Supervision ? GAIT?Assistive Device: FWW ?Weight bearing: Full WBing ?Assist: Supervision ?Distance:? 20 ft Balance:? Static Sitting: Normal Dynamic Sitting: Normal Static Standing: Good Dynamic Standing: Fair Assessment:?? Patient is a 77 year old male referred to physical therapy services with the diagnosis of UTI, Syncope, Afib RVR.? Patient presents with clinical signs and symptoms consistent with diagnosis along with left sided LBP, as demonstrated by the following impairment level findings: decreased mobility tolerance.? Impairments are contributing to the following functional limitations: Goals: Goals X1 week 1. Supine-Sit independent MET 2. Sit-Supine independent MET 3. Sit-Stand independent MET 4. Stand-Sit independent MET 5. Bed-Chair independent MET 6. Chair-Bed independent MET 7. Gait independent with use of assistive device for improved posture reducing stress left low back NOT MET 8. Stairs independent with use of railing 3-5 steps NOT MET 9. Independent with home exercise program NOT MET DISCHARGE RECOMMENDATIONS: Home with outpatient PT for his low back pain TREATMENT CODE/TIME:? NC Thank you for the opportunity to participate in the care of this patient. Rashmi Wade PT, DPT, CLT [facility] [place], [place]
== END 2023-08-03 18:50 | disposition home or self-care (01) | DRG 312 ==
LOC: ER 23:30 → ICU 08-01 02:03
PROVIDERS: Internal Medicine; Admitting Provider Family Medicine; Emergency Provider Emergency Medicine; PCP Family Medicine; Visit Provider Family Medicine
DX: I95.1 Orthostatic hypotension (principal); N39.0 Urinary tract infection, site not specified; I69.854 Hemiplegia and hemiparesis following other cerebrovascular disease affecting left non-dominant side; M54.40 Lumbago with sciatica, unspecified side; I48.0 Paroxysmal atrial fibrillation; R00.1 Bradycardia, unspecified; Z79.01 Long term (current) use of anticoagulants; I73.9 Peripheral vascular disease, unspecified; I07.1 Rheumatic tricuspid insufficiency; H40.1111 Primary open-angle glaucoma, right eye, mild stage; D75.89 Other specified diseases of blood and blood-forming organs; E78.00 Pure hypercholesterolemia, unspecified; E88.81 Metabolic syndrome and other insulin resistance; M51.26 Other intervertebral disc displacement, lumbar region; K64.8 Other hemorrhoids; I71.40 Abdominal aortic aneurysm, without rupture, unspecified; I25.10 Atherosclerotic heart disease of native coronary artery without angina pectoris; Z95.5 Presence of coronary angioplasty implant and graft; N40.0 Benign prostatic hyperplasia without lower urinary tract symptoms; I10 Essential (primary) hypertension; Z87.891 Personal history of nicotine dependence; I70.0 Atherosclerosis of aorta
CPT/HCPCS: 36415; 36416; 71275; 80048; 80053; 82550; 82805; 82962; 83690; 86850; 86900; 86901; 87077; 93005; 96361; 96365; 96366; 96375; 97140; 97161; 97530; 99285; 70450; 74174; 80162; 80320; 81003; 81015; 83735; 83880; 84439; 84443; 84484; 85025; 85610; 85730; 87086; 87186; 93010; 99223; 99233; 99239; 99291; J1160; J1956; J3490

== ENCOUNTER 2023-08-03 16:37 | Outpatient (RCR) | payer MEDICARE, SELFPAY | END 2023-08-30 23:59 | disposition home or self-care (01) | LOC: RT 16:37 | PROVIDERS: PCP Family Medicine; Visit Provider Family Medicine | DX: R55 Syncope and collapse (principal) | CPT/HCPCS: 93270 ==

== ENCOUNTER 2023-08-14 17:50 | Emergency (ER) | payer MEDICARE, SELFPAY ==
[2023-08-14] VITALS (36 sets, daily range): BP systolic 108–176; BP diastolic 63–160; PULSE 85–128; RESP 0–27; TEMP 36.5; O2SAT 97–100
--- NOTE | 2023-08-14 18:15 | RT.EKG_ITS ---
APPROVED REPORT Exam: Resting ECG Reason for Exam: afib hx Patient Location: E HR:108 bpm ECG Measurements Heart Rate 108 AXIS NH [id number] P [id number] QRSd 80 QRS 38 QT 297 T 224 QTc 399 Conclusion Atrial fibrillation...V-rate 69-134, irreg A-activity Low voltage, precordial leads...precordial leads <1.0mV Nonspecific repol abnormality, diffuse leads...ST dep, T flat/neg, ant/lat/inf T Wave inversion inV2-v3. Slight ST depresion V4-V6, IRBBB, Twave inversion in new from previous. No STEMI
--- NOTE | 2023-08-14 19:08 | W.ED.GENAD ---
Discharge Plan Disposition Patient Disposition: Home Condition: Improving Discharge Details Clinical Impression: Acute UTI, Benign prostatic hypertrophy, Atrial fibrillation, Abdominal aortic aneurysm (AAA) 3.0 cm to 5.5 cm in diameter in male, Lumbar back pain with radiculopathy affecting left lower extremity Primary Care Provider: Camacho Barrera ED Provider: Ainsley Bedolla Home Meds and New Rx's Prescriptions: New nitrofurantoin monohyd/m-cryst [Macrobid] 100 mg capsule 100 mg PO Q12H 7 Days Qty: 14 0RF Rx Instructions: must administer with a meal/food No Action rivaroxaban 20 mg tablet 20 mg PO DAILY Qty: 90 3RF Hold Instructions: Resume on 05/02/22. Rx Instructions: must administer with evening meal timolol maleate 0.5 % gel forming solution 1 drp ophthalmic (eye) BID clotrimazole 1 % cream 1 applic topical BID Qty: 45 3RF lisinopril 20 mg tablet 20 mg PO DAILY Hold Instructions: Resume on 08/05/23. aspirin 81 mg Tablet,Delayed Release (Dr/Ec) 81 mg PO DAILY Qty: 30 0RF atorvastatin 10 mg tablet 80 mg PO DAILY Qty: 90 3RF clopidogrel 75 mg tablet 75 mg PO DAILY Hold Instructions: per [facility] [place] docusate sodium [Colace] 100 mg Capsule 100 mg PO BID PRN (Reason: constipation) Qty: 60 0RF Rx Instructions: Take while/if taking hydrocodone digoxin 125 mcg (0.125 mg) Tablet 0.125 mg PO DAILY Qty: 30 0RF hydrocodone-acetaminophen 5-325 mg tablet 1 - 2 tab PO Q6H MDD 40 mg of hydrocodone PRN (Reason: pain) Qty: 40 0RF naloxone [Narcan] 4 mg/actuation spray,non-aerosol 4 mg intranasal Q3M PRNQty: 2 0RF Rx Instructions: spray 1 dose into ONE nostril; alternate nostrils w each dose until help arrives Discharge Instructions Instructions: Probiotic (By mouth), A-fib (Atrial Fibrillation) (ED), Urinary Tract Infection in Men (ED), Sciatica (ED), Lumbar Radiculopathy (ED) Additional Instructions: 1. Start Macrobid 100 mg every 12 hours for 7 days. We recommend you take a probiotic or eat foods with probiotics in them while on antibiotics. 2. Keep your appointment at [facility] tomorrow. Tell them you were seen here today and you had a CT scan that showed a 3 cm abdominal aortic aneurysm. Tell your vascular surgeon the CT scan is available for them to review. 3. A urine culture was done and will be resulted in 48 hours. You may access the results through the patient portal or through your primary care provider's office. 4. Take acetaminophen as needed for pain and hydrocodone that was previously prescribed for severe pain. 5. Ask your vascular surgeon or architecture intern whether you are supposed to be on digoxin and tell them that you are level was subtherapeutic. 6. Return to the emergency department for any new or worrisome symptoms such as numbness in the rectal or genital region, abdominal pain, fevers or chills or any concerns. Discharge Data Discharge Date/Time-TO BE ENTERED AT DEPARTURE: 08/15/23 00:10 Discharge Physician: Ainsley Bedolla Medical Decision Making This is a 77-year-old male with complex past medical history including a craniotomy for Brain abscess from [facility] in 2014. He has a history of sciatica. He recently had a carotid endarterectomy at [facility] and had a Lutz placed and subsequently developed a urinary tract infection for which she was admitted here. He also has a history of atrial fibrillation and is on Eliquis. He was on Plavix but there is some concern that the Plavix may be aggravating his low back pain. He comes in now with low back pain and symptoms that are suggestive of sciatica. He denies any bowel or bladder incontinence or retention. He denies any saddle anesthesia. His motor function is 5 out of 5 in both lower extremities. He does have a positive straight leg raise on the left. He is in atrial fibrillation. He does endorse frequent urination. He does appear mildly uncomfortable. My plan is to obtain IV access and to give him IV fluids and analgesics. I will obtain a CT of the abdomen and pelvis with and without contrast to rule out renal colic and perinephric abscess. We will give him analgesics and IV fluids. Overall I think he looks well and will likely be discharged home. Differential Diagnosis Differential Diagnosis: UTI, renal colic, perinephric abscess Medical Records Medical records reviewed: Yes I reviewed the patient's medical records. Medical records narrative: Complex medical history as discussed above Imaging Data Radiologic Study: Imaging: CT Scan (CTA abdomen and pelvis with IV contrast) Radiologist's impression: 1. Significant arthritic changes and 3 cm abdominal aortic aneurysm. No other signs of aortic dissection or of acute abnormality. 2. Significant degenerative changes of the lower lumbar spine as described. 3. Prostatomegaly with prominent coarse prostate gland calcifications. Radiologic Study #2: Imaging: CT Scan (LS spine without contrast) Radiologist's impression: 1. Significant degenerative changes of the lower lumbar spine. No evidence of acute injury. 2. Atherosclerotic changes as noted. Lab Data Lab results reviewed: Yes I reviewed the patient's lab results. Lab results narrative: White count of 10.5 with normal H&H. Slight elevation of monocytes and eosinophils. Mild lactic acidosis. Mild hyperglycemia slightly elevated total bilirubin normal transaminases and alk phos. Urine reveals a small amount of leukocyte Estrace and moderate amount of blood. Culture is pending HPI General Mode of arrival: ambulatory. Date/Time Provider Initiated Documentation: 08/14/23 18:17. Limitations to Documentation: no limitations. Information obtained by: patient, RN notes reviewed and old records reviewed. HPI Narrative: Time seen was 1910 in bed 5. The patient is a 77-year-old male with history of atrial fibrillation on Xarelto. He underwent a carotid endarterectomy at [facility] on July 16 and was on Plavix. He does have a history of sciatica. When his Plavix was initiated he began having worsening back pain. He was told that Plavix could exacerbate back pain and his vascular surgeon suggested that he stop that. He did and it slightly improved and when he reinitiated it his back pain seem to get worse. He did not take his Plavix today. He presents today with back pain associated with elevated blood pressure. The pain does radiate down the left leg, which he has had before. He denies any saddle anesthesia. He denies any bowel or bladder incontinence or retention. When he had his carotid endarterectomy he had a urinary catheter placed and developed leakage around the catheter associated with blood in the urine. The catheter was replaced with a larger catheter and then it was removed. He has not had any hematuria or urinary retention since the removal of the urinary catheter. Today he was seen for the back pain and physical therapy and had a TENS unit placed which helped the pain for few hours. Currently the pain is 8 out of 10 in severity and radiates down the left leg to the calf. He has had mild anorexia no vomiting. He has been taking hydrocodone as needed for pain. He denies any fever but has had hematuria. The patient is right-hand dominant and tells me that he did have a mini stroke in May. He does have a history of atrial fibrillation and is on Xarelto and is currently wearing a journeyman pipe welder which was placed during his admission here last week when he was admitted for UTI. He is not currently on antibiotics. The patient has a significant history of an abscess in his brain from strep in 2014 which was treated with a craniotomy and IV antibiotics. The patient denies any fever or chills. He denies any chest pain or shortness of breath. The patient cannot tell when he is in or out of atrial fibrillation. Related Data Home Medications Medication Instructions Recorded Confirmed rivaroxaban 20 mg tablet 20 mg PO DAILY #90 tabs 04/14/23 07/31/23 timolol maleate 0.5 % eye gel 1 drp ophthalmic (eye) BID 05/08/23 07/31/23 forming solution aspirin 81 mg tablet,delayed 81 mg PO DAILY #30 tabs 05/19/23 07/31/23 release atorvastatin 10 mg tablet 80 mg PO DAILY #90 tab-caps 05/19/23 07/31/23 clotrimazole 1 % topical cream 1 applic topical BID #45 grams 06/27/23 07/31/23 clopidogrel 75 mg tablet 75 mg PO DAILY 07/17/23 07/31/23 lisinopril 20 mg tablet 20 mg PO DAILY 07/21/23 07/31/23 digoxin 125 mcg (0.125 mg) tablet 0.125 mg PO DAILY #30 tabs 08/03/23 docusate sodium 100 mg capsule 100 mg PO BID PRN constipation #60 08/03/23 (Colace) caps hydrocodone 5 mg-acetaminophen 325 1 - 2 tab PO Q6H PRN pain #40 tabs 08/03/23 mg tablet naloxone 4 mg/actuation nasal 4 mg intranasal Q3M PRN #2 ea 08/03/23 spray (Narcan) nitrofurantoin 100 mg PO Q12H 7 days #14 caps 08/14/23 monohydrate/macrocrystals 100 mg capsule (Macrobid) Previous Rx's Medication Instructions Recorded rivaroxaban 20 mg tablet 20 mg PO DAILY #90 tabs 04/14/23 aspirin 81 mg tablet,delayed 81 mg PO DAILY #30 tabs 05/19/23 release atorvastatin 10 mg tablet 80 mg PO DAILY #90 tab-caps 05/19/23 clotrimazole 1 % topical cream 1 applic topical BID #45 grams 06/27/23 digoxin 125 mcg (0.125 mg) tablet 0.125 mg PO DAILY #30 tabs 08/03/23 docusate sodium 100 mg capsule 100 mg PO BID PRN constipation #60 08/03/23 (Colace) caps hydrocodone 5 mg-acetaminophen 325 1 - 2 tab PO Q6H PRN pain #40 tabs 08/03/23 mg tablet naloxone 4 mg/actuation nasal 4 mg intranasal Q3M PRN #2 ea 08/03/23 spray (Narcan) nitrofurantoin 100 mg PO Q12H 7 days #14 caps 08/14/23 monohydrate/macrocrystals 100 mg capsule (Macrobid) Allergies Allergy/AdvReac Type Severity Reaction Status Date / Time venom-honey bee Allergy Severe HIVES Verified 08/14/23 18:05 [bee venom (honey bee)] TACHYCARDIA Penicillins Allergy Intermediate HIVES Verified 08/14/23 18:05 levetiracetam [From [facility]] AdvReac Severe leukopenia Verified 08/14/23 18:05 prednisone AdvReac Severe rectal Verified 08/14/23 18:05 bleeding and diarrhea aspirin AdvReac Intermediate Nosebleeds Verified 08/14/23 18:05 ceftriaxone AdvReac Intermediate Leukopenia Verified 08/14/23 18:05 simvastatin AdvReac Intermediate LEG PAIN Verified 08/14/23 18:05 DR MCLEOD SHRIMP Allergy Intermediate HIVES , Uncoded 08/14/23 18:05 NAUSEA General Stated Complaint: Nk/Back Pain PALOMA: 3 Review of Systems Narrative: see hpi PFSH All Active Problems (Updated 08/14/23 @ 23:48 by Ainsley Bedolla MD) Acute UTI (Acute) Lumbar back pain with radiculopathy affecting left lower extremity (Acute) Atherosclerosis of aorta (Chronic) Enlarged prostate (Acute) Orthostatic hypotension (Acute) Bradycardia (Acute) Atrial fibrillation with RVR (Acute) Encounter for monitoring digoxin therapy (Acute) Low back pain (Acute) Atrial fibrillation (Chronic) Syncope (Acute) History of left-sided carotid endarterectomy (Acute) [place]/16/2023 at [facility] [place] Hematuria (Acute) Complication, blocked Lutz catheter (Acute) H/O carotid endarterectomy (Acute) Paroxysmal A-fib (Acute) Peripheral artery disease (Acute) Non-healing skin lesion (Acute) Hyperlipidemia, unspecified (Acute) Acute ischemic stroke (Acute 05/18/23) Occlusion of right vertebral artery (Acute) Carotid stenosis, bilateral (Chronic) I65.21 - Right-sided extracranial carotid artery stenosis Ischemic stroke (Acute) Macrocytosis without anemia (Acute) Primary open angle glaucoma (POAG) of right eye, mild stage (Chronic) Cough (Acute) Tricuspid regurgitation (Acute) Beat, premature ventricular (Acute ~08/2022) 09/11/22 Cardiology 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 (Acute) Syncope (Chronic) Prolonged QT interval (Acute) Atrial tachycardia determined by electrocardiography (Acute) Internal hemorrhoids (Acute) Blood glucose abnormal (Acute 11/03/14) Trigger middle finger of right hand (Acute 04/25/16) Abdominal aortic aneurysm (AAA) 3.0 cm to 5.5 cm in diameter in male (Chronic) Found in October 2018, needs to be rechecked every 3 years Pure hypercholesterolemia (Chronic 01/31/12) goal LDL<70 Metabolic syndrome X (Chronic 02/15/13) goal 215# 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 s/p stenting x 5 2010 or 2011 at [facility] b. presenting symptom was primarily fatigue Hypertension (Chronic) Benign prostatic hypertrophy (Chronic) Atrial fibrillation (Chronic) I48.0 Paroxysmal atrial fibrillation 10/09/20 [facility] [place] Cardiology Medical History H/O: urinary stone Hx of colonic polyps Surgical History R small trigger finger release (05/28/16) [place] S/P ablation of atrial fibrillation (10/2018) steriotactic brain bx (01/27/15) [facility] [place] bx brain abscess Family History Mother , HF at age 89. Heart disease Father , stroke HBP at age 90. Essential hypertension Brother , heart at age 82. No problems noted. Brother No problems noted. 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 Pets and animals: No Sexually active: Yes Do you think of yourself as: straight/heterosexual Current gender identity: male What is your relationship status?: How often do you talk on the phone with friends or family?: three or more times per week How often do you get together with friends or relatives?: three or more times per week Do you belong to any clubs or organized social groups?: yes Panel score (0-1 are the most socially isolated patients): 3 What type of physical activity do you participate in: none Cassidy/Hoahaoism: None Special cassidy needs: No Seatbelt use: always Drive intox or ride w/intox cdl team truck driver: No Working smoke detector in home: Yes Fire extinguisher in home: Yes Carbon monox detector in home: Yes Do you feel safe at home: Yes Do you feel safe in your relationship?: Yes Exam Const General: cooperative, healthy appearing, well developed, well groomed and well hydrated Nutritional Appearance: average body habitus and well nourished Orientation: alert, awake and oriented x3 Other: The patient appears mildly uncomfortable. He is mildly hypertensive. He is not tachycardic tachypneic or febrile. His room air O2 sat is normal at 100% HENMT Head: normal to inspection, normocephalic and other (Patient has well-healed craniotomy scar on the right side of his head) Ears: hearing grossly normal bilaterally and external ears normal General nose exam: external nose normal, nares normal and no nasal discharge Face and sinus: normal facial exam, sinuses nontender and face symmetric Mouth: oral mucosae normal, lip normal, tongue normal, oropharynx normal, moist mucous membranes and other (Normal phonation. The patient is handling secretions.) Throat: posterior oropharynx normal and uvula midline Eyes General: appearance normal, both eyes and all related structures Eyelids: eyelids normal Conjunctivae: conjunctivae normal Sclera: sclerae normal Cornea: corneas normal Pupils: PERRL EOM: EOM intact bilaterally and No nystagmus Neck Neck: normal visual inspection, full ROM, no lymphadenopathy, no meningeal signs, trachea midline and supple Lymphatic: no lymphadenopathy noted Chest Chest: normal inspection of the chest Resp Effort & Inspection: normal respiratory effort, able to speak in complete sentences, no audible wheezes, no nasal flaring, no respiratory distress, no retractions, no stridor, not tachypneic, no tracheal deviation, no use of accessory muscles, No prolonged expiratory phase and other (Normal inspiratory to expiratory ratio.) Auscultation: clear to auscultation bilaterally, no rales, no rhonchi, no wheezes and no rubs Tactile Fremitus: tactile fremitus absent Cardio Jugular venous pressure: no JVD Palpation: normal PMI Rate: regular rate Rhythm: abnormal rhythm regularly irregular Heart Sounds: S1 normal, S2 normal, no gallops, no murmurs and no rubs Pulses: brachial pulses present Other: The patient is wearing a journeyman pipe welder over his sternum. GI Inspection: normal to inspection and non-distended Palpation: soft, no hepatosplenomegaly, no guarding and nontender Percussion: normal to percussion Auscultation: normal bowel sounds General: No CVA tenderness Back/Spine/Pelvis Back: no CVA tenderness and No back tenderness Cervical Spine: normal cervical lordosis, cervical ROM normal, No cervical muscular tenderness, No pain with cervical ROM, No cervical spinal tenderness and No step off deformity Thoracic/Lumbar Spine: thoracic and lumbar spine normal to inspection, No thoracic spinal tenderness and No lumbar spinal tenderness Pelvis: no pain with anterior-posterior compression and no pain with lateral compression Other: The patient has 2 patches from what appears to be TENS units of the lower back still in place from physical therapy Skin General skin exam: no rashes or lesions noted, turgor normal, no petechiae, no purpura and other (Skin is normal for ethnicity.) Lesions: no lesions Rashes: no rashes Trauma: no lacerations or abrasions Neuro General: patient alert, patient awake, patient oriented x3, moves all extremities, no meningeal signs, no focal motor deficits and CN's II-XI intact bilaterally Cranial Nerves: CN's II-XI intact bilaterally, PERRL, accommodation normal, EOM intact bilaterally, no nystagmus, facial strength normal, tongue midline, hearing normal and no nystagmus Cognition: normal cognition Speech: speech normal Motor: muscle tone normal throughout and strength 5/5 throughout Sensory Exam: no sensory deficits noted and other (The patient has positive straight leg raise on the left at 10 degrees) DTR's: Rt Patellar: 2+, Lt Patellar: 2+, Rt Ankle: 1+ and Lt Ankle: 1+ Plantar Reflexes: Downgoing: bilateral Pupils: Mid position: bilateral Extrem General: normal to inspection, full ROM, capillary refill normal, no clubbing, cyanosis or edema and no calf tenderness Psych Appearance: grossly normal Affect: normal affect Attitude: cooperative Thought Process: normal Thought Content: normal Insight: insight good Judgment: judgment good Other: The patient appears to have capacity make medical decisions. Course Reevaluation(s) Time: 23:27 Reevaluation: The patient feels improved but would like a dose of additional pain medicine before his IV is taken out. I have discussed his subtherapeutic digoxin level. He is not sure whether he is currently taking and or whether it was discontinued. I have advised him about the abdominal aortic aneurysm. He has follow-up appointments tomorrow with his vascular surgeon and for an ultrasound of his bladder for his urinary retention. I have advised him to check with his providers about whether he is supposed to be on digoxin and that his level is subtherapeutic. He is not allergic to Bactrim and I will discharge him on Bactrim DS 1 p.o. twice daily for 7 days. I have advised him to return to the emergency department for any new or worrisome symptoms such as intractable pain, saddle anesthesia, bowel or bladder incontinence or retention or any concerns. I have asked to have his imaging pushed to [facility] for their review. Vital Signs Vital signs: Vital Signs Temperature 36.5 C 08/14/23 17:57 Pulse 89 08/14/23 17:57 Respiratory Rate 18 08/14/23 17:57 Blood Pressure 155/105 H 08/14/23 17:57 Pulse Oximetry 100 08/14/23 17:57 Temperature 36.5 C 08/14/23 17:57 Temperature Source Skin 08/14/23 17:57 Pulse 89 08/14/23 17:57 Respiratory Rate 18 08/14/23 17:57 Respiratory Effort Normal 08/14/23 18:17 Blood Pressure 155/105 H 08/14/23 17:57 Blood Pressure Position Sitting 08/14/23 17:57 Pulse Oximetry 100 08/14/23 17:57 Oxygen Delivery Method Room Air 08/14/23 17:57 Oxygen Flow Rate 0 08/14/23 17:57 Pain Level 7 08/14/23 17:57 Critical Care Time Critical Care Time Critical Care Time: Yes Total Critical Care Time: 47 Attestation: Time with the patient, time at the bedside, review of labs, radiographs, old records and reevaluations
--- NOTE | 2023-08-14 19:29 | DI.CT_ITS ---
Exam(s) CT LUMBAR SPINE RECONS CT RENAL COLIC WO CT ABDOMEN PELVIS CTA EXAM: CT RENAL COLIC WO and CT a abdomen and pelvis and CT lumbar spine recons CLINICAL HISTORY: L lower back pain. TECHNIQUE: Imaging Protocol: Axial CT angiography was performed with multi-slice acquisition and m ulti-planar and/or 3D reconstructions. 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 Atherosc lerosis. Renal Arteries: There is no occlusion. There is stenosis at the origin of the renal arteries bilater ally. Atherosclerosis in the renal arteries bilaterally, left greater than right. Aorta: No evidence of occlusion or significant stenosis. Atherosclerosis. 3.1 x 3.1 cm infrarenal a bdominal aortic aneurysm. Pelvis: Iliac Arteries: No evidence of occlusion or significant stenosis. Atherosclerosis. Common Femoral Arteries: No evidence of occlusion or significant stenosis. Atherosclerosis. ABDOMEN: Lung bases: Cardiomegaly. Coronary artery calcification. Small hiatal hernia. Liver: Normal density. No measurable mass. Portal, Superior Mesenteric, and Splenic Veins: Due to the timing of the bolus, opacification is subo ptimal for evaluation. Gallbladder and Biliary Tract: No radiodense calculus or dilation. Pancreas: Normal density, no abnormal calcifications or inflammatory process. Spleen: There is heterogeneous enhancement likely due to the arterial imaging phase. Adrenals: No masses seen. Kidneys: Normal size, contour and axis. No radiodense stones or obstructive uropathy. No masses seen. Bowel: There is diverticulosis without evidence of acute diverticulitis. There is no evidence of bow el obstruction or bowel wall thickening. No evidence of appendicitis. Peritoneal Cavity: No ascites, collection or mesenteric inflammatory response. No free air. Lymph Nodes: Within normal limits. Bones: Unremarkable. Soft Tissues: There is a small fat containing left inguinal hernia. CT lumbar spine: No acute fracture or subluxation. Age-appropriate degenerative changes are seen thr oughout the lumbar spine. No spondylolysis. There is grade 1 anterolisthesis of L4 on L5. There is multilevel neural foraminal stenosis particularly at L4-5 and L5-S1. There is central spinal canal stenosis at L4-L5 PELVIS: Bladder: Symmetric distention, no gross wall thickening. Reproductive Organs: There is an enlarged prostate gland. Lymph Nodes: Within normal limits. Bones: Within normal limits. IMPRESSION: 1. No evidence of nephrolithiasis or hydronephrosis. 2. No evidence of aortic dissection. 3. 3 cm infrarenal abdominal aortic aneurysm. Significant atherosclerotic disease in the abdomen. 4. Prostatomegaly. 5. Degenerative changes in the lumbar spine with central spinal canal and neural foraminal stenosis a s described above. Findings are most marked at the L4-5 and L5-S1 levels. RADIATION DOSE DELIVERED: 943.85mGy.cm Total DLP DATA REPOSITORY: All CT scans at this facility are submitted to the National Radiology Data Registry (NRDR) Dose Index Registry (DIR) with the [employer] (ACR). RADIATION OPTIMIZATION: All CT scans at this facility use at least one of these dose optimization te chniques: automated exposure control; mA and/or kV adjustment per patient size (includes targeted exa ms where dose is matched to clinical indication); or iterative reconstruction.
[2023-08-14 19:49] LABS: Abs Immature Grans 0.03 10^3/uL (0.0-0.06); Absolute Basophil Count 0.07 10^3/uL (0.0-0.2); Absolute Eosinophil Count 0.96 10^3/uL (0.0-0.7); Absolute Lymphocyte Count 2.03 10^3/uL (1.2-3.4); Absolute Monocyte Count 0.84 10^3/uL (0.1-0.8); Absolute Neutrophil Count 6.64 10^3/uL (1.2-6.7); Basophils % 0.7; Eosinophils % 9.1; HCT 41.9 % (40.0-50.0); HGB 14.3 g/dL (13.5-17.5); Immature Grans % 0.3; Lactate 2.3 mmol/L (0.6-1.4); Lymphocytes % 19.2; MCH 31.8 pg (27.0-33.0); MCHC 34.1 % (32.0-36.0); MCV 93 fL (80-95); MPV 10.2 fL (8.0-11.0); Monocytes % 7.9; Neutrophils % 62.8; Platelet Count 239 10^3/uL (130-400); RBC 4.49 10^6/uL (4.36-5.78); RDW 12.6 % (11.8-14.1); RDW-SD 43.5 fL; WBC 10.57 10^3/uL (4.4-10.8)
[2023-08-14] MEDS: ACETAMINOPHEN 1,000 MG/100 ML BTL 400 MG IVPB (19:52)
[2023-08-14] MEDS: Normal Saline 1,000 ML 1000 ML IV ×2 (19:53→20:51)
[2023-08-14] MEDS: fentaNYL 100 MCG/2 ML VIAL 25 MCG IVP (19:53)
[2023-08-14 19:54] LABS: Bilirubin Negative (Negative); Blood Moderate (Negative); Clarity Clear (Clear); Glucose Negative (Negative); Ketones Negative (Negative); Leukocyte Esterase Small (Negative); Nitrite Negative (Negative); Urobilinogen 0.2 mg/dL (Up to 0.2); pH 6.5 (5-8)
[2023-08-14 20:02] LABS: Bacteria Rare HPF (Negative); C & S Indicated? Yes; Casts Negative LPF (Negative); Crystals Negative HPF (Negative); Epithelial Cells Rare HPF (Negative); Mucus Negative (Negative); RBC 0-2 HPF (0-2); WBC 0-2 HPF (0-5)
[2023-08-14 20:04] LABS: ALT 36 U/L (16-63); AST 21 U/L (15-37); Alkaline Phosphatase 91 U/L (46-116); Anion Gap 9.4 mmol/L (3-11); BUN 12 mg/dL (7-18); Bilirubin, Total 1.2 mg/dL (0.2-1.0); CO2 28.6 mmol/L (21.0-32.0); CREATININE 0.9 mg/dL (0.70-1.30); Calcium 9.9 mg/dL (8.5-10.1); Chloride 101 mmol/L (98-107); Estimated GFR 87.96 (mL/min/1.73m2); Glucose 124 mg/dL (74-106); Sodium 139 mmol/L (136-145); Total Protein 7.8 g/dL (6.4-8.2)
[2023-08-14] MEDS: Normal Saline - Diluent 50 ML VIAL IJ (22:00)
[2023-08-14] MEDS: Omnipaque 350 MG/ML 100 ML BTL IJ (22:01)
[2023-08-14] MEDS: Normal Saline Flush 10 ML SYR IVP (22:02)
[2023-08-14 22:31] LABS: Digoxin 0.27 ng/mL (0.90-2.00)
--- NOTE | 2023-08-14 22:45 | DI.VRAD_ITS ---
PROCEDURE INFORMATION: Exam: CT Abdomen And Pelvis Without Contrast Exam date and time: 08/14/2023 9:59 PM Age: 77 years old Clinical indication: Other: L lower back pain TECHNIQUE: Imaging protocol: Computed tomography of the abdomen and pelvis without contrast. COMPARISON: CT THORAX ABD/PEL CTA 07/31/2023 9:17 PM FINDINGS: Coronary arteries: Dense coronary artery calcifications. Liver: Normal. No mass. Gallbladder and bile ducts: Normal. No calcified stones. No ductal dilation. Pancreas: Normal. No ductal dilation. Spleen: Normal. No splenomegaly. Adrenal glands: Normal. No mass. Kidneys and ureters: Normal. No hydronephrosis. Stomach and bowel: Unremarkable. No obstruction. No mucosal thickening. Appendix: No evidence of appendicitis. Intraperitoneal space: Unremarkable. No free air. No significant fluid collection. Vasculature: Dense atherosclerotic calcification throughout the aorta and its branches. Slight fusiform dilation of the infrarenal abdominal aorta measuring maximum diameter of 3.0 cm. Lymph nodes: Unremarkable. No enlarged lymph nodes. Urinary bladder: Unremarkable as visualized. Reproductive: Prostate gland is moderately enlarged, measuring 5.6 cm in greatest diameter. Coarse prostate gland calcifications noted. Bones/joints: Severe bilateral facet arthropathy at L4-L5. Severe degenerative disc changes at the lumbosacral junction. Mild grade 1 anterolisthesis of L4. No vertebral body compression or acute fracture. Soft tissues: Unremarkable. IMPRESSION: Chronic appearing findings as noted. No acute abnormality Dictated and Authenticated by: Boby Yanes MD. Ordering:RACHEL Schmitz MD
--- NOTE | 2023-08-14 22:51 | DI.VRAD_ITS ---
PROCEDURE INFORMATION: Exam: CTA Abdomen and Pelvis With Contrast Exam date and time: 08/14/2023 10:03 PM Age: 77 years old Clinical indication: Other: Low back pain, ? renal colic, ? aaa, prior surgery; Surgery date: 6+ months; Surgery type: 5 stents 2010 and 2011 TECHNIQUE: Imaging protocol: Computed tomographic angiography of the abdomen and pelvis with contrast. Exam focused on the arteries. 3D rendering (Not supervised by radiologist): MIP and/or 3D reconstructed images were created by the technologist. Contrast material: OMNIPAQUE 350; Contrast volume: 100 ml; Contrast route: INTRAVENOUS (IV); COMPARISON: CT THORAX ABD/PEL CTA 07/31/2023 9:17 PM FINDINGS: Aorta: 3 cm infrarenal abdominal aortic aneurysm. No evidence of aortic dissection. Dense atherosclerotic calcification throughout the aorta. 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 Renal arteries: Moderate stenosis of the origin of the bilateral renal arteries. Right iliac arteries: No occlusion or significant stenosis. Left iliac arteries: No occlusion or significant stenosis. Liver: No mass. Gallbladder and bile ducts: Unremarkable. No calcified stones. No ductal dilation. Pancreas: Unremarkable. No mass. No ductal dilation. Spleen: Unremarkable. No splenomegaly. Adrenal glands: Unremarkable. No mass. Kidneys and ureters: Unremarkable. No solid mass. No hydronephrosis. Stomach and bowel: Unremarkable. No obstruction. No mucosal thickening. Appendix: No evidence of appendicitis. Intraperitoneal space: Unremarkable. No free air. No significant fluid collection. Lymph nodes: Unremarkable. No enlarged lymph nodes. Urinary bladder: Unremarkable. No mass. Reproductive: Prostate gland is enlarged, measuring 6 cm in greatest diameter. Coarse prostate gland calcification is noted. Bones/joints: Bilateral facet arthropathy at L4-L5 producing grade 1 anterolisthesis of L4. Severe degenerative disc changes at the lumbosacral junction. No vertebral body compression or acute fracture. Soft tissues: Unremarkable. IMPRESSION: 1. Significant arthritic changes and 3 cm abdominal aortic aneurysm. No evidence of aortic dissection or acute abnormality. 2. Significant degenerative changes of the lower lumbar spine as described. 3. Prostatomegaly with prominent coarse prostate gland calcifications. Dictated and Authenticated by: Boby Yanes MD. Ordering:RACHEL Schmitz MD
--- NOTE | 2023-08-14 22:55 | DI.VRAD_ITS ---
PROCEDURE INFORMATION: Exam: CT Lumbar Spine Without Contrast Exam date and time: 08/14/2023 10:03 PM Age: 77 years old Clinical indication: Other: Low back pain. TECHNIQUE: Imaging protocol: Computed tomography of the lumbar spine without contrast. COMPARISON: MR LUMBAR SPINE WO 04/22/2022 1:10 PM FINDINGS: Bones/joints: Severe bilateral facet arthropathy at L4-L5 with grade 1 anterolisthesis of L4. Severe degenerative disc space narrowing with moderate disc bulge and uncovertebral spurring at the L5-S1 disc level. More mild degenerative changes of the other lumbar levels. No vertebral compression or acute fracture. Vasculature: Diffuse atherosclerotic change with mild aneurysmal dilation of the infrarenal abdominal aorta measuring 3 cm in greatest diameter. Soft tissues: Unremarkable. IMPRESSION: 1. Significant degenerative changes of the lower lumbar spine. No evidence of acute injury 2. Atherosclerotic changes as noted. Dictated and Authenticated by: Boby Yanes MD. Ordering:RACHEL Schmitz MD
[2023-08-15] MEDS: fentaNYL 100 MCG/2 ML VIAL 25 MCG IVP (00:08)
[2023-08-15] MEDS: MacroBID 100 MG CAP, 2 CAPS/BTL PO (00:08)
[2023-08-15 00:09] VITALS: BP 146/106; PULSE 90; RESP 16; O2SAT 97
== END 2023-08-15 00:10 | disposition home or self-care (01) ==
PROVIDERS: Emergency Provider Emergency Medicine Emergency Medical Services; PCP Family Medicine
DX: I48.91 Unspecified atrial fibrillation (principal); R94.31 Abnormal electrocardiogram [ECG] [EKG]; N40.1 Benign prostatic hyperplasia with lower urinary tract symptoms; R35.0 Frequency of micturition; N39.0 Urinary tract infection, site not specified; M54.16 Radiculopathy, lumbar region; I71.40 Abdominal aortic aneurysm, without rupture, unspecified
CPT/HCPCS: 36416; 80053; 93005; 96361; 96365; 96375; 96376; 99285; 74174; 74176; 80162; 81003; 81015; 83605; 85025; 87086; 93010; 99284; J0131; J3010; J3490

== ENCOUNTER 2023-08-16 19:48 | Emergency (ER) | payer MEDICARE, SELFPAY ==
[2023-08-16] VITALS (53 sets, daily range): BP systolic 119–204; BP diastolic 86–161; PULSE 79–156; RESP 12–28; TEMP 36; O2SAT 92–100
--- NOTE | 2023-08-16 20:41 | W.ED.GENAD ---
Discharge Plan Disposition Patient Disposition: Home Condition: Improving Discharge Details Clinical Impression: Spasm of muscle of lower back Primary Care Provider: Camacho Barrera ED Provider: Jacquie Mas Home Meds and New Rx's Prescriptions: Continued rivaroxaban 20 mg tablet 20 mg PO DAILY Qty: 90 3RF Hold Instructions: Resume on 05/02/22. Rx Instructions: must administer with evening meal timolol maleate 0.5 % gel forming solution 1 drp ophthalmic (eye) BID clotrimazole 1 % cream 1 applic topical BID Qty: 45 3RF lisinopril 20 mg tablet 20 mg PO DAILY Hold Instructions: Resume on 08/05/23. nitrofurantoin monohyd/m-cryst [Macrobid] 100 mg capsule 100 mg PO Q12H 7 Days Qty: 14 0RF Rx Instructions: must administer with a meal/food aspirin 81 mg Tablet,Delayed Release (Dr/Ec) 81 mg PO DAILY Qty: 30 0RF atorvastatin 10 mg tablet 80 mg PO DAILY Qty: 90 3RF clopidogrel 75 mg tablet 75 mg PO DAILY Hold Instructions: per [facility] docusate sodium [Colace] 100 mg Capsule 100 mg PO BID PRN (Reason: constipation) Qty: 60 0RF Rx Instructions: Take while/if taking hydrocodone digoxin 125 mcg (0.125 mg) Tablet 0.125 mg PO DAILY Qty: 30 0RF hydrocodone-acetaminophen 5-325 mg tablet 1 - 2 tab PO Q6H MDD 40 mg of hydrocodone PRN (Reason: pain) Qty: 40 0RF naloxone [Narcan] 4 mg/actuation spray,non-aerosol 4 mg intranasal Q3M PRNQty: 2 0RF Rx Instructions: spray 1 dose into ONE nostril; alternate nostrils w each dose until help arrives Discharge Instructions Instructions: Muscle Spasm (ED) Additional Instructions: At this time your cardiac work-up is within normal limits. I do suspect that it is from your tachycardia. You were given a dose of your digoxin while you are here. Please follow-up with your veneer puller. Please take the Robaxin or methocarbamol as previously prescribed. Follow up with primary care provider in 3-5 days. Return to ED sooner if any worsening or concerns. Increase oral fluids. Referrals: Camacho Barrera DO [Primary Care Provider] - 3 days Discharge Data Discharge Date/Time-TO BE ENTERED AT DEPARTURE: 08/17/23 00:06 Medical Decision Making 77-year-old male past medical history of UTI, A-fib with RVR, endarterectomy, AAA fib, hyperlipidemia, carotid stenosis who presents for the second in the last 72 hours with a chief complaint of back pain and spasm. Patient was diagnosed UTI 2 days ago was placed on Macrobid and received fentanyl while here in the department. Had a CT of his abdomen pelvis which showed 3 cm aortic aneurysm. Patient reports that he is having some worsening left lower quadrant abdominal pain, back spasms intermittently which are constant waxing and waning. Some radiation down his left lower extremity. He did not take his evening medications. He does present tachycardic in atrial fibrillation wearing a Holter monitor and hypertensive. I did consider reimaging however he did have a CT 2 days ago CTA of his abdomen and thorax. Diazepam 5 mg IV ordered. Repeat labs, EKG and urinalysis. Differential diagnosis includes but not limited to back spasm, the L4 spondylolisthesis, kidney stone, less likely worsening of his a abdominal aortic aneurysm which was 3 cm 2 days ago. 2222: Patient reevaluation he reports that his pain is completely gone after the diazepam and morphine. He has not been taking his muscle relaxers as prescribed. He was prescribed 750 mg of methocarbamol. He continues to be tachycardic and hypertensive. He normally is on digoxin orally once a day in the a.m. He does take 0.125 mg I did order 0.125 mg IV. When he was seen here couple days ago he was subtherapeutic. Repeat troponin came back at 56 which is within normal limits. It is downtrending at this time. Patient remains slightly tachycardic with a rate of 120. His blood pressure has improved to 127/83. Patient to be discharged home with follow-up care instructed to take his Robaxin as previously prescribed. Discussed home care and strict return instructions. Patient improved upon discharge. Medical Records Medical records reviewed: Yes I reviewed the patient's medical records. Lab Data Lab results reviewed: Yes I reviewed the patient's lab results. Labs: 08/16/23 20:30 Urine - Reflex from Ua Urine Culture - Pending Laboratory Tests Range/Units 08/16/23 08/16/23 08/16/23 20:30 20:35 20:35 WBC (4.4-10.8) 10^3/uL 11.65 H RBC (4.36-5.78) 10^6/uL 4.33 L Hgb (13.5-17.5) g/dL 13.9 Hct (40.0-50.0) % 41.0 MCV (80-95) fL 95 MCH (27.0-33.0) pg 32.1 MCHC (32.0-36.0) % 33.9 RDW (11.8-14.1) % 12.8 Plt Count (130-400) 10^3/uL 235 MPV (8.0-11.0) fL 10.4 Immature Gran % 0.4 Neutrophils % 64.8 Lymphocytes % 16.0 Monocytes % 7.0 Eosinophils % 11.2 Basophils % 0.6 Nucleated RBC % (0.0-0.3) % 0.0 Absolute Neutrophils (1.2-6.7) 10^3/uL 7.55 H Absolute Lymphocytes (1.2-3.4) 10^3/uL 1.86 Absolute Monocytes (0.1-0.8) 10^3/uL 0.82 H Absolute Eosinophils (0.0-0.7) 10^3/uL 1.30 H Absolute Basophils (0.0-0.2) 10^3/uL 0.07 PT (9.3-11.0) sec INR (0.9-1.1) Sodium (136-145) mmol/L 141 Potassium (3.5-5.1) mmol/L 3.7 Chloride (98-107) mmol/L 102 Carbon Dioxide (21.0-32.0) mmol/L 28.3 Anion Gap (3-11) mmol/L 10.7 BUN (7-18) mg/dL 13 Creatinine (0.70-1.30) mg/dL 1.0 Est GFR (CKD-EPI 2020) (mL/min/1.73m2) 77.52 Glucose (74-106) mg/dL 119 H Calcium (8.5-10.1) mg/dL 9.8 Magnesium (1.8-2.4) mg/dL 1.9 Total Bilirubin (0.2-1.0) mg/dL 1.0 AST (15-37) U/L 23 ALT (16-63) U/L 37 Alkaline Phosphatase (46-116) U/L 90 Troponin I (<or=60) ng/L 62 H* Total Protein (6.4-8.2) g/dL 7.6 Albumin (3.4-5.0) g/dL 3.9 Urine Color (Yellow) Yellow Urine Clarity (Clear) Clear Urine pH (5-8) 5.5 Ur Specific [place] (1.005-1.025) 1.010 Urine Protein (Negative) mg/dL Negative Urine Ketones (Negative) mg/dL Negative Urine Blood (Negative) Trace-intact H Urine Nitrite (Negative) Negative Urine Bilirubin (Negative) Negative Urine Urobilinogen (Up to 0.2) mg/dL 0.2 Ur Leukocyte Esterase (Negative) Trace H Urine RBC (0-2) HPF 0-2 Urine WBC (0-5) HPF 3-5 Ur Epithelial Cells (Negative) HPF Rare Urine Crystals (Negative) HPF Negative Urine Bacteria (Negative) HPF Rare Urine Casts (Negative) LPF Negative Urine Mucus (Negative) Negative Ur Culture Indicated? Yes Urine Glucose (Negative) mg/dL Negative Range/Units 08/16/23 08/16/23 20:35 23:10 WBC (4.4-10.8) 10^3/uL RBC (4.36-5.78) 10^6/uL Hgb (13.5-17.5) g/dL Hct (40.0-50.0) % MCV (80-95) fL MCH (27.0-33.0) pg MCHC (32.0-36.0) % RDW (11.8-14.1) % Plt Count (130-400) 10^3/uL MPV (8.0-11.0) fL Immature Gran % Neutrophils % Lymphocytes % Monocytes % Eosinophils % Basophils % Nucleated RBC % (0.0-0.3) % Absolute Neutrophils (1.2-6.7) 10^3/uL Absolute Lymphocytes (1.2-3.4) 10^3/uL Absolute Monocytes (0.1-0.8) 10^3/uL Absolute Eosinophils (0.0-0.7) 10^3/uL Absolute Basophils (0.0-0.2) 10^3/uL PT (9.3-11.0) sec 11.0 INR (0.9-1.1) 1.1 Sodium (136-145) mmol/L Potassium (3.5-5.1) mmol/L Chloride (98-107) mmol/L Carbon Dioxide (21.0-32.0) mmol/L Anion Gap (3-11) mmol/L BUN (7-18) mg/dL Creatinine (0.70-1.30) mg/dL Est GFR (CKD-EPI 2020) (mL/min/1.73m2) Glucose (74-106) mg/dL Calcium (8.5-10.1) mg/dL Magnesium (1.8-2.4) mg/dL Total Bilirubin (0.2-1.0) mg/dL AST (15-37) U/L ALT (16-63) U/L Alkaline Phosphatase (46-116) U/L Troponin I (<or=60) ng/L 56 Total Protein (6.4-8.2) g/dL Albumin (3.4-5.0) g/dL Urine Color (Yellow) Urine Clarity (Clear) Urine pH (5-8) Ur Specific [place] (1.005-1.025) Urine Protein (Negative) mg/dL Urine Ketones (Negative) mg/dL Urine Blood (Negative) Urine Nitrite (Negative) Urine Bilirubin (Negative) Urine Urobilinogen (Up to 0.2) mg/dL Ur Leukocyte Esterase (Negative) Urine RBC (0-2) HPF Urine WBC (0-5) HPF Ur Epithelial Cells (Negative) HPF Urine Crystals (Negative) HPF Urine Bacteria (Negative) HPF Urine Casts (Negative) LPF Urine Mucus (Negative) Ur Culture Indicated? Urine Glucose (Negative) mg/dL HPI General Mode of arrival: EMS. Date/Time Provider Initiated Documentation: 08/16/23 20:05. Limitations to Documentation: no limitations. Information obtained by: patient, RN notes reviewed and old records reviewed. HPI Narrative: 77-year-old male past medical history of UTI, A-fib with RVR, endarterectomy, AAA fib, hyperlipidemia, carotid stenosis who presents for the second in the last 72 hours with a chief complaint of back pain and spasm. Patient was diagnosed UTI 2 days ago was placed on Macrobid and received fentanyl while here in the department. Had a CT of his abdomen pelvis which showed 3 cm aortic aneurysm. Patient reports that he is having some worsening left lower quadrant abdominal pain, back spasms intermittently which are constant waxing and waning. Some radiation down his left lower extremity. He did not take his evening medications. He does present tachycardic in atrial fibrillation wearing a Holter monitor and hypertensive. Related Data Home Medications Medication Instructions Recorded Confirmed rivaroxaban 20 mg tablet 20 mg PO DAILY #90 tabs 04/14/23 08/16/23 timolol maleate 0.5 % eye gel 1 drp ophthalmic (eye) BID 05/08/23 08/16/23 forming solution aspirin 81 mg tablet,delayed 81 mg PO DAILY #30 tabs 05/19/23 08/16/23 release atorvastatin 10 mg tablet 80 mg PO DAILY #90 tab-caps 05/19/23 08/16/23 clotrimazole 1 % topical cream 1 applic topical BID #45 grams 06/27/23 08/16/23 clopidogrel 75 mg tablet 75 mg PO DAILY 07/17/23 08/16/23 lisinopril 20 mg tablet 20 mg PO DAILY 07/21/23 08/16/23 digoxin 125 mcg (0.125 mg) tablet 0.125 mg PO DAILY #30 tabs 08/03/23 08/16/23 docusate sodium 100 mg capsule 100 mg PO BID PRN constipation #60 08/03/23 08/16/23 (Colace) caps hydrocodone 5 mg-acetaminophen 325 1 - 2 tab PO Q6H PRN pain #40 tabs 08/03/23 08/16/23 mg tablet naloxone 4 mg/actuation nasal 4 mg intranasal Q3M PRN #2 ea 08/03/23 spray (Narcan) nitrofurantoin 100 mg PO Q12H 7 days #14 caps 08/14/23 08/16/23 monohydrate/macrocrystals 100 mg capsule (Macrobid) Previous Rx's Medication Instructions Recorded rivaroxaban 20 mg tablet 20 mg PO DAILY #90 tabs 04/14/23 aspirin 81 mg tablet,delayed 81 mg PO DAILY #30 tabs 05/19/23 release atorvastatin 10 mg tablet 80 mg PO DAILY #90 tab-caps 05/19/23 clotrimazole 1 % topical cream 1 applic topical BID #45 grams 06/27/23 digoxin 125 mcg (0.125 mg) tablet 0.125 mg PO DAILY #30 tabs 08/03/23 docusate sodium 100 mg capsule 100 mg PO BID PRN constipation #60 08/03/23 (Colace) caps hydrocodone 5 mg-acetaminophen 325 1 - 2 tab PO Q6H PRN pain #40 tabs 08/03/23 mg tablet naloxone 4 mg/actuation nasal 4 mg intranasal Q3M PRN #2 ea 08/03/23 spray (Narcan) nitrofurantoin 100 mg PO Q12H 7 days #14 caps 08/14/23 monohydrate/macrocrystals 100 mg capsule (Macrobid) Allergies Allergy/AdvReac Type Severity Reaction Status Date / Time venom-honey bee Allergy Severe HIVES Verified 08/14/23 18:05 [bee venom (honey bee)] TACHYCARDIA Penicillins Allergy Intermediate HIVES Verified 08/14/23 18:05 levetiracetam [From [facility]] AdvReac Severe leukopenia Verified 08/14/23 18:05 prednisone AdvReac Severe rectal Verified 08/14/23 18:05 bleeding and diarrhea aspirin AdvReac Intermediate Nosebleeds Verified 08/14/23 18:05 ceftriaxone AdvReac Intermediate Leukopenia Verified 08/14/23 18:05 simvastatin AdvReac Intermediate LEG PAIN Verified 08/14/23 18:05 DR MCLEOD SHRIMP Allergy Intermediate HIVES , Uncoded 08/14/23 18:05 NAUSEA General Stated Complaint: Nk/Back Pain PALOMA: 3 Review of Systems All systems reviewed & are unremarkable except as noted in HPI and below Constitutional Constitutional: Denies weakness Cardiovascular Cardiovascular: Denies chest pain, Denies syncope, Reports rapid heart rate, Denies pedal edema, Denies radiating jaw, neck or arm pain and Denies dyspnea Respiratory Respiratory: Denies cough and Denies dyspnea Gastrointestinal Gastrointestinal: Reports abdominal pain, Denies diarrhea, Denies nausea and Denies vomiting Musculoskeletal Musculoskeletal: Reports as per HPI, Reports back pain, Reports muscle cramps and Reports radiating pain into limb (left leg) Neurologic Neurologic: Denies syncope, Denies localized weakness, Reports radicular pain and Denies weakness PFSH All Active Problems Acute UTI (Acute) Lumbar back pain with radiculopathy affecting left lower extremity (Acute) Spasm of muscle of lower back (Acute) Atherosclerosis of aorta (Chronic) Enlarged prostate (Acute) Orthostatic hypotension (Acute) Bradycardia (Acute) Atrial fibrillation with RVR (Acute) Encounter for monitoring digoxin therapy (Acute) Low back pain (Acute) Atrial fibrillation (Chronic) Syncope (Acute) History of left-sided carotid endarterectomy (Acute) 07/16/2023 at [facility] Peripheral artery disease (Acute) Non-healing skin lesion (Acute) Hyperlipidemia, unspecified (Acute) Acute ischemic stroke (Acute 05/18/23) Occlusion of right vertebral artery (Acute) Carotid stenosis, bilateral (Chronic) I65.21 - Right-sided extracranial carotid artery stenosis Ischemic stroke (Acute) Macrocytosis without anemia (Acute) Primary open angle glaucoma (POAG) of right eye, mild stage (Chronic) Cough (Acute) Tricuspid regurgitation (Acute) Beat, premature ventricular (Acute ~08/2022) 09/11/22 Cardiology 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 (Acute) Syncope (Chronic) Prolonged QT interval (Acute) Atrial tachycardia determined by electrocardiography (Acute) Internal hemorrhoids (Acute) Blood glucose abnormal (Acute 11/03/14) Trigger middle finger of right hand (Acute 04/25/16) Abdominal aortic aneurysm (AAA) 3.0 cm to 5.5 cm in diameter in male (Chronic) Found in October 2018, needs to be rechecked every 3 years Pure hypercholesterolemia (Chronic 01/31/12) goal LDL<70 Metabolic syndrome X (Chronic 02/15/13) goal 215# 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 s/p stenting x 5 2010 [facility] b. presenting symptom was primarily fatigue Hypertension (Chronic) Benign prostatic hypertrophy (Chronic) Atrial fibrillation (Chronic) I48.0 Paroxysmal atrial fibrillation 10/09/20 [facility] Cardiology Medical History H/O: urinary stone Hx of colonic polyps Surgical History R small trigger finger release (05/28/16) [place] S/P ablation of atrial fibrillation (10/2018) steriotactic brain bx (01/27/15) [facility] bx brain abscess Family History Mother , HF at age 89. Heart disease Father , stroke HBP at age 90. Essential hypertension Brother , heart at age 82. No problems noted. Brother No problems noted. 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 Pets and animals: No Sexually active: Yes Do you think of yourself as: straight/heterosexual Current gender identity: male What is your relationship status?: How often do you talk on the phone with friends or family?: three or more times per week How often do you get together with friends or relatives?: three or more times per week Do you belong to any clubs or organized social groups?: yes Panel score (0-1 are the most socially isolated patients): 3 What type of physical activity do you participate in: none Cassidy/Sikhism: None Special cassidy needs: No Seatbelt use: always Drive intox or ride w/intox coach tour driver: No Working smoke detector in home: Yes Fire extinguisher in home: Yes Carbon monox detector in home: Yes Do you feel safe at home: Yes Do you feel safe in your relationship?: Yes Exam Const General: cooperative, well developed, well groomed and in distress mild Nutritional Appearance: average body habitus and well nourished Orientation: alert, awake and oriented x3 Resp Effort & Inspection: normal respiratory effort and able to speak in complete sentences Auscultation: clear to auscultation bilaterally Cardio Rate: tachycardic Rhythm: abnormal rhythm irregularly irregular GI Palpation: soft and tender in the LLQ Back/Spine/Pelvis Back: back tenderness Thoracic/Lumbar Spine: thoraco-lumbar spasm Neuro General: patient alert, patient awake and patient oriented x3 Cranial Nerves: CN's II-XI intact bilaterally Sensory Exam: no sensory deficits noted Course Vital Signs Vital signs: Vital Signs Temperature 36 C L 08/16/23 19:45 Pulse 121 H 08/16/23 19:45 Respiratory Rate 18 08/16/23 19:45 Blood Pressure 191/119 H 08/16/23 19:45 Pulse Oximetry 98 08/16/23 19:45 Temperature 36 C L 08/16/23 19:45 Temperature Source Temporal Artery Scan 08/16/23 19:45 Pulse 121 H 08/16/23 19:45 Respiratory Rate 18 08/16/23 19:45 Respiratory Effort Normal 08/16/23 19:52 Blood Pressure 191/119 H 08/16/23 19:45 Pulse Oximetry 98 08/16/23 19:45 Oxygen Delivery Method Room Air 08/16/23 19:45 Oxygen Flow Rate 0 08/16/23 19:45 PAWSS Have you Been Recently Intoxicated or Drunk Within the Last 30 days?: No Have you Ever Experienced Previous Episodes of Alcohol Withdrawal?: No Have you ever Experienced Withdrawal Seizures?: No Have you ever Experienced Delirium Tremens(DT)s?: No Have you ever undergone Alcohol Rehabilitation Treatment (i.e, inpt ot outpatient treatment programs)?: No Have you ever Experienced Blackouts?: No Have you ever Combined Alcohol with other Downers within the last 90 days?: No Have you ever Combined Alcohol with any other Substance of Abuse during the last 90 days?: No Positive Blood Alcohol level on Presentation? [PCS.BAL]: No Evidence of Increased Autonomic Activity (i.e. HR>120, tremor, sweating, agitation, nausea)?: No Result: 0
--- NOTE | 2023-08-16 20:45 | RT.EKG_ITS ---
APPROVED REPORT Exam: Resting ECG Reason for Exam: Dizziness Patient Location: E HR:122 bpm ECG Measurements Heart Rate 122 AXIS ME [id number] P [id number] QRSd 81 QRS 51 QT 294 T 219 QTc 419 Conclusion Atrial fibrillation...V-rate 78-156, No ST segment or T wave abnormalities to suggest occlusive ND
[2023-08-16] MEDS: diazePAM 10 MG/2 ML SYR 5 MG IVP (21:00)
[2023-08-16 21:02] LABS: Abs Immature Grans 0.05 10^3/uL (0.0-0.06); Absolute Basophil Count 0.07 10^3/uL (0.0-0.2); Absolute Lymphocyte Count 1.86 10^3/uL (1.2-3.4); Absolute Monocyte Count 0.82 10^3/uL (0.1-0.8); Absolute Neutrophil Count 7.55 10^3/uL (1.2-6.7); Basophils % 0.6; Eosinophils % 11.2; HGB 13.9 g/dL (13.5-17.5); Immature Grans % 0.4; MCH 32.1 pg (27.0-33.0); MCHC 33.9 % (32.0-36.0); MCV 95 fL (80-95); MPV 10.4 fL (8.0-11.0); Neutrophils % 64.8; Platelet Count 235 10^3/uL (130-400); RBC 4.33 10^6/uL (4.36-5.78); RDW 12.8 % (11.8-14.1); RDW-SD 44.3 fL; WBC 11.65 10^3/uL (4.4-10.8)
[2023-08-16 21:14] LABS: INR 1.1 (0.9-1.1)
[2023-08-16 21:20] LABS: ALT 37 U/L (16-63); AST 23 U/L (15-37); Albumin 3.9 g/dL (3.4-5.0); Alkaline Phosphatase 90 U/L (46-116); Anion Gap 10.7 mmol/L (3-11); BUN 13 mg/dL (7-18); CO2 28.3 mmol/L (21.0-32.0); Calcium 9.8 mg/dL (8.5-10.1); Chloride 102 mmol/L (98-107); Estimated GFR 77.52 (mL/min/1.73m2); Glucose 119 mg/dL (74-106); Magnesium 1.9 mg/dL (1.8-2.4); Potassium 3.7 mmol/L (3.5-5.1); Sodium 141 mmol/L (136-145); Total Protein 7.6 g/dL (6.4-8.2)
[2023-08-16 21:21] LABS: Troponin I 62 ng/L (<or=60)
[2023-08-16 21:29] LABS: Bilirubin Negative (Negative); Blood Trace-intact (Negative); Clarity Clear (Clear); Glucose Negative (Negative); Ketones Negative (Negative); Leukocyte Esterase Trace (Negative); Nitrite Negative (Negative); Urobilinogen 0.2 mg/dL (Up to 0.2); pH 5.5 (5-8)
[2023-08-16 21:30] LABS: Bacteria Rare HPF (Negative); C & S Indicated? Yes; Casts Negative LPF (Negative); Crystals Negative HPF (Negative); Epithelial Cells Rare HPF (Negative); Mucus Negative (Negative); RBC 0-2 HPF (0-2)
[2023-08-16] MEDS: MORPHine 4 MG/ML SYR IVP (22:04)
[2023-08-16] MEDS: Ondansetron 4 MG/2 ML VIAL IVP (22:05)
[2023-08-16] MEDS: Digoxin 0.5 MG/2 ML AMP 0.125 MG IVP (22:25)
[2023-08-16 23:31] LABS: Troponin I 56 ng/L (<or=60)
== END 2023-08-17 00:06 | disposition home or self-care (01) ==
PROVIDERS: Emergency Provider Registered Nurse Emergency; PCP Family Medicine
DX: M54.50 Low back pain, unspecified (principal); M62.830 Muscle spasm of back; I48.91 Unspecified atrial fibrillation; E78.5 Hyperlipidemia, unspecified; Z79.899 Other long term (current) drug therapy; Z86.73 Personal history of transient ischemic attack (TIA), and cerebral infarction without residual deficits
CPT/HCPCS: 80053; 93005; 96374; 96375; 99284; 81003; 81015; 83735; 84484; 85025; 85610; 87086; 93010; 99283; J1160; J2270; J2405; J3360

== ENCOUNTER 2023-09-04 13:35 | Outpatient (CLI) | payer MEDICARE, SELFPAY ==
--- NOTE | 2023-09-04 15:06 | W.CARDEVENT ---
Date of service: 09/04/23 Time of Service: 15:06 Cardiac Event Recorder Referring Provider:: Liliana Ewing Indications:: Atrial fibrillation Cardiac Event Note: This is a cardiac event monitor. Patient was monitored for a total of 17 days 16 hours Rhythm throughout was atrial flutter/atrial fibrillation with an average heart rate of 90. There were occasional brief runs of nonsustained ventricular tachycardia Periods of rapid ventricular response were noted There was no high-grade AV block, no pauses greater than 3 seconds There did not appear to be any patient symptoms
== END 2023-09-04 13:36 | disposition home or self-care (01) ==
LOC: CARDOPNVT 13:35
PROVIDERS: PCP Family Medicine; Visit Provider Internal Medicine Cardiovascular Disease
DX: R55 Syncope and collapse (principal); I48.91 Unspecified atrial fibrillation; I49.3 Ventricular premature depolarization
CPT/HCPCS: 93272

== ENCOUNTER 2023-11-13 01:54 | Outpatient (CLI) | payer MEDICARE, SELFPAY ==
[2023-11-13 14:36] LABS: HCT 42.4 % (40.0-50.0); HGB 14.4 g/dL (13.5-17.5); MCH 32.5 pg (27.0-33.0); MCV 96 fL (80-95); MPV 10.6 fL (8.0-11.0); Platelet Count 267 10^3/uL (130-400); RBC 4.43 10^6/uL (4.36-5.78); RDW 13.9 % (11.8-14.1); RDW-SD 49.3 fL; WBC 8.98 10^3/uL (4.4-10.8)
[2023-11-13 15:54] LABS: TSH (W/Ref FT4) 2.89 uIU/mL (0.36-3.74); Vitamin B12 287 pg/mL (193-986)
== END 2023-11-13 01:55 | disposition home or self-care (01) ==
LOC: LBO 01:54
PROVIDERS: PCP Family Medicine; Visit Provider Family Medicine
DX: R53.83 Other fatigue (principal)
CPT/HCPCS: 36415; 85027; 82607; 84443

== ENCOUNTER 2024-01-01 08:37 | Observation (INO) | payer MEDICARE, SELFPAY ==
[2024-01-01] VITALS (77 sets, daily range): BP systolic 89–164; BP diastolic 43–130; PULSE 56–121; RESP 9–36; TEMP 36.2–37.6; O2SAT 90–99
--- NOTE | 2024-01-01 08:30 | RT.EKG_ITS ---
APPROVED REPORT Exam: Resting ECG Reason for Exam: weakness Patient Location: E HR:108 bpm ECG Measurements Heart Rate 108 AXIS NE [id number] P [id number] QRSd 83 QRS 67 QT 317 T 215 QTc 426 Conclusion Atrial fibrillation...V-rate 72-147, irreg A-activity Ventricular premature complex...V complex w/ short R-R interval Nonspecific T abnormalities, diffuse leads...T <-0.10mV, ant/lat/inf
--- NOTE | 2024-01-01 08:43 | ED.GENADUL_ITS ---
HPI General Mode of arrival: EMS . Date/Time Provider Initiated Documentation: 01/01/24 08:46 . Information obtained by: patient, EMS, RN notes reviewed and old records reviewed . HPI Narrative: 78-year-old male presents to the ER via EMS with a chief complaint of left-sided rib and back pain status post a fall off the toilet this morning. Patient states that he got up to wipe after having one episode of diarrhea and that is when he fell. His heard him fall and called EMS. He denies hitting his head. He is alert and oriented x 4, no evidence of head trauma, no C-spine tenderness on palpation. He denies any headache. He is on clopidogrel for atrial fibrillation. He was recently seen by his PCP and was started back on 25 mg of metoprolol which he took last night. On scene EMS got a blood pressure of approximately 96 systolic which improved prior to arrival. Upon arrival his blood pressure is 141/85 heart rate is 111 which is irregular with occasional PVCs. 97% on room air. No ecchymosis noted on his chest no abdominal pain. He reports that the last time he was on metoprolol he had a similar diarrheal reaction and low blood pressure. He attributes this episode to the metoprolol. Related Data Home Medications Medication Instructions Recorded Confirmed timolol maleate 0.5 % eye gel 1 drp ophthalmic (eye) BID 05/08/23 01/01/24 forming solution atorvastatin 10 mg tablet 80 mg (8 x 10 mg) PO DAILY #90 05/19/23 01/01/24 tab-caps clotrimazole 1 % topical cream 1 applic topical BID #45 grams 06/27/23 01/01/24 clopidogrel 75 mg tablet 75 mg PO DAILY 07/17/23 01/01/24 lisinopril 20 mg tablet 20 mg PO DAILY #90 tabs 11/10/23 01/01/24 metoprolol tartrate 25 mg tablet 25 mg PO BID #180 tabs 12/29/23 01/01/24 Previous Rx's Medication Instructions Recorded atorvastatin 10 mg tablet 80 mg (8 x 10 mg) PO DAILY #90 05/19/23 tab-caps clotrimazole 1 % topical cream 1 applic topical BID #45 grams 06/27/23 lisinopril 20 mg tablet 20 mg PO DAILY #90 tabs 11/10/23 metoprolol tartrate 25 mg tablet 25 mg PO BID #180 tabs 12/29/23 Allergies Allergy/AdvReac Type Severity Reaction Status Date / Time venom-honey bee Allergy Severe HIVES Verified 01/01/24 08:48 [bee venom (honey bee)] TACHYCARDIA Penicillins Allergy Intermediate HIVES Verified 01/01/24 08:48 levetiracetam [From [facility]] AdvReac Severe leukopenia Verified 01/01/24 08:48 prednisone AdvReac Severe rectal Verified 01/01/24 08:48 bleeding and diarrhea aspirin AdvReac Intermediate Nosebleeds Verified 01/01/24 08:48 ceftriaxone AdvReac Intermediate Leukopenia Verified 01/01/24 08:48 simvastatin AdvReac Intermediate LEG PAIN Verified 01/01/24 08:48 DR MCLEOD SHRIMP Allergy Intermediate HIVES , Uncoded 01/01/24 08:48 NAUSEA General PALOMA: 3 Review of Systems All systems reviewed & are unremarkable except as noted in HPI and below Constitutional Constitutional: Denies headache(s) Eyes Eyes: Denies loss of vision ENT Ears, Nose, Mouth, and Throat: Reports dizziness, Denies headache(s), Denies neck pain and Reports disequilibrium Cardiovascular Cardiovascular: Reports as per HPI, Reports chest pain, Reports syncope, Reports rapid heart rate and Reports palpitations Respiratory Respiratory: Denies cough, Denies stridor and Denies wheezing Gastrointestinal Gastrointestinal: Denies abdominal pain and Reports diarrhea Musculoskeletal Musculoskeletal: Reports as per HPI, Denies back pain, Denies neck pain and Denies numbness Integumentary/Breasts Skin/Breast: Reports other (Pale) Neurologic Neurologic: Denies abnormal speech, Denies confusion, Reports dizziness, Reports syncope, Denies headache(s), Denies localized weakness, Denies loss of vision, Denies numbness, Denies other visual disturbances and Reports disequilibrium Psychiatric Psychiatric: Denies confusion Endocrine Endocrine: Reports palpitations Allergic/Immunologic Allergic/Immunologic: Denies wheezing Exam Narrative Exam Narrative: General: Well Developed, Awake and Alert, conversant. Patient is slightly pale on exam. Skin: Warm and Dry HEENT: Head: No palpable deformities, Normocephalic Eyes: Pupils PERRLA, EOM's intact. No periorbital eccymosis or step off Ears: Canal patent. Tympanic membranes are clear . No zepeda's sign, no hemptympanum. Nose/Face: Atraumatic. Facial bones nontender to palpation and stable with manipulation. Mouth/Throat: No intraoral trauma. Teeth and mandible are intact. Neck: No midline tenderness, no step off, no deformity to palpation of C-spine. Trachea midline. Chest: No surface trauma. Tender left anterior lower rib cage, lungs diminished to ausculatation bilaterally. Heart: RRR, no rubs, murmurs or gallop. Abdomen: No abrasions, ecchymosis, or surface trauma. Nondistended. Nontender to palpation no guarding, rebound, or rigidity. Pelvis: Nontender to palpation and stable to compression. Femoral pulses strong and equal Extremities: Abrasion noted to left anterior Forearm, where EMS attempted IV. sensation intact. Peripheral pulses intact and equal. Neuro: ANO x4, GCS 15, cranial nerves II through XII intact. Motor and sensory exam nonfocal. Reflexes are symmetric. Medical Decision Making 78-year-old male presents to the ER via EMS with a chief complaint of left-sided rib and back pain status post a fall off the toilet this morning. Patient states that he got up to wipe after having some diarrhea and that is when he fell. He denies hitting his head. He is alert and oriented x 4, no evidence of head trauma, no C-spine tenderness on palpation. He denies any headache. He is on clopidogrel for atrial fibrillation. He was recently seen by his PCP and was started back on 25 mg of metoprolol which he took last night. On scene EMS got a blood pressure of approximately 96 systolic which improved prior to arrival. Upon arrival his blood pressure is 141/85 heart rate is 111 which is irregular with occasional PVCs. 97% on room air. No ecchymosis noted on his chest no abdominal pain. EKG was reviewed by Dr. Guerrero and myself ER attending, old EKG available for review. No ischemic changes noted, there is some occasional PVCs. Irregular rhythm. Cardiac workup ordered including serial troponins, PT PTT, urinalysis CBC CMP, CT chest abdomen pelvis without contrast. NS 500 ml IVPB. I do suspect rib fractures on the left. Lungs are clear to auscultation bilaterally. Abdomen is soft nontender with palpation all 4 quadrants. POC test shows positive flu A. POC test was ordered by staff electronic warfare officer due to patient reports that him and his possibly having the flu. Flu a positive, 0943: Initial troponin is 87 1007: Spoke with Dr. Melendez radiologist who states small lateral anterior left 9th rib fracture, no pneumothorax. He does have an old defect on the posterior aspect. See his official report. Repeat Trop is downtrending at a level of 66. 1303: Patient reevaluation I discussed the CT results with him and his lab values, he is still complaining of some pain, 2 mg of morphine ordered. Patient reports that he has tolerated fentanyl in the past. He does have a history of vasovagal syndrome which she thinks that this was similar episode also due to to the new metoprolol. Will page hospitalist for admission due to rib fracture wi th Eliquis, bumped troponin diarrhea for pain control and observation. 1315: Spoke with Dr. Pedersen who is on-call for hospitalist. He states that at this time patient does not meet admission criteria. I will re-discussed the plan of care with patient. Will double check orthostatics prior to discharge and encourage close follow-up with PCP for repeat chest x-ray approximately a week. Patient does have some orthostatic hypotension informed by staff electronic warfare officer that systolic blood pressure went from 129-89 upon sitting and then for from 89-99 upon standing. additional 500 cc normal saline bolus ordered. 1425: Contacted Dr. Pedersen again regarding orthostatic hypotension, he requests re-eval after fluid bolus and road test. 1540: Spoke again with Dr. Pedersen, patient unable to tolerate road test due to dizziness, his blood pressure went from 126 systolic to 112 heart rate jumped up to 140. He agrees to accept patient for admission for orthostatic hypotension, dizziness rib fracture. Patient aware of plan of care and is in agreement with the plan verbalizes understanding. Medical Records Medical records reviewed: Yes I reviewed the patient's medical records. Imaging Data Radiologic Study: Imaging: CT Scan Radiologist's impression: CT Chest Abd/Pelvis IMPRESSION: 1. There is an acute minimally displaced fracture of the anterior aspect of the left 9th rib. No other acute rib fractures identified. 2. Chronic increased markings in left lung base in the anterior basal segment left lower lobe and thickening of the inferior aspect of the left major fissure are unchanged from prior CT scans. No new pulmonary findings and no evidence of pneumothorax nor pleural effusion. 3. Other incidental findings as above, unrelated to trauma. Lab Data Lab results reviewed: Yes I reviewed the patient's lab results. Labs: 01/01/24 10:38 Urine - Reflex from Ua Urine Culture - Pending Laboratory Tests Range/Units 01/01/24 01/01/24 01/01/24 09:12 10:38 11:38 WBC (4.4-10.8) 10^3/uL 8.11 RBC (4.36-5.78) 10^6/uL 4.60 Hgb (13.5-17.5) g/dL 14.9 Hct (40.0-50.0) % 44.0 MCV (80-95) fL 96 H MCH (27.0-33.0) pg 32.4 MCHC (32.0-36.0) % 33.9 RDW (11.8-14.1) % 13.5 Plt Count (130-400) 10^3/uL 192 MPV (8.0-11.0) fL 10.6 Immature Gran % 0.5 Neutrophils % 86.1 Lymphocytes % 5.4 Monocytes % 6.8 Eosinophils % 0.6 Basophils % 0.6 Nucleated RBC % (0.0-0.3) % 0.0 Absolute Neutrophils (1.2-6.7) 10^3/uL 6.98 H Absolute Lymphocytes (1.2-3.4) 10^3/uL 0.44 L Absolute Monocytes (0.1-0.8) 10^3/uL 0.55 Absolute Eosinophils (0.0-0.7) 10^3/uL 0.05 Absolute Basophils (0.0-0.2) 10^3/uL 0.05 PT (9.1-11.1) sec 11.5 H INR (0.9-1.1) 1.2 H APTT (23.6-32.8) sec 33.9 H Sodium (136-145) mmol/L 137 Potassium (3.5-5.1) mmol/L 3.7 Chloride (98-107) mmol/L 98 Carbon Dioxide (21.0-32.0) mmol/L 27.1 Anion Gap (3-11) mmol/L 11.9 H BUN (7-18) mg/dL 16 Creatinine (0.70-1.30) mg/dL 1.0 Est GFR (CKD-EPI 2020) (mL/min/1.73m2) 77.04 Glucose (74-106) mg/dL 130 H Calcium (8.5-10.1) mg/dL 9.7 Magnesium (1.8-2.4) mg/dL 2.0 Total Bilirubin (0.2-1.0) mg/dL 1.9 H AST (15-37) U/L 23 ALT (16-63) U/L 23 Alkaline Phosphatase (46-116) U/L 74 Troponin I (< or =60) ng/L 87 H* 66 H* Total Protein (6.4-8.2) g/dL 7.9 Albumin (3.4-5.0) g/dL 3.7 Urine Color (Yellow) Yellow Urine Clarity (Clear) Sl Cloudy Urine pH (5-8) 5.5 Ur Specific [place] (1.005-1.025) 1.025 Urine Protein (Negative) mg/dL 100 H Urine Ketones (Negative) mg/dL Negative Urine Blood (Negative) Moderate H Urine Nitrite (Negative) Negative Urine Bilirubin (Negative) Negative Urine Urobilinogen (Up to 0.2) mg/dL 0.2 Ur Leukocyte Esterase (Negative) Trace H Urine RBC (0-2) HPF 10-20 H Urine WBC (0-5) HPF 3-5 Ur Epithelial Cells (Negative) HPF Rare Urine Crystals (Negative) HPF Negative Urine Bacteria (Negative) HPF Rare Urine Casts (Negative) LPF 3-5 Hyaline Urine Mucus (Negative) Moderate Ur Culture Indicated? Yes Urine Glucose (Negative) mg/dL Negative Quality:SDOH Health Related Social Needs: No Data to Display PFSH All Active Problems (Updated 01/01/24 @ 15:17 by Jacquie Mas NP) Fall (Acute) Orthostatic hypotension (Acute) Influenza A (Acute) Elevated troponin I level (Acute) Left rib fracture (Acute) Atherosclerosis of aorta (Chronic) Enlarged prostate (Acute) Orthostatic hypotension (Acute) Bradycardia (Acute) Atrial fibrillation with RVR (Acute) Encounter for monitoring digoxin therapy (Acute) Low back pain (Acute) Atrial fibrillation (Chronic) Syncope (Acute) History of left-sided carotid endarterectomy (Acute) 07/16/2023 at [facility] [place] Peripheral artery disease (Acute) 08/15/23 F/u Vascular Non-healing skin lesion (Acute) Hyperlipidemia, unspecified (Acute) Acute ischemic stroke (Acute 05/18/23) Occlusion of right vertebral artery (Acute) Carotid stenosis, bilateral (Chronic) I65.21 - Right-sided extracranial carotid artery stenosis Ischemic stroke (Acute) Macrocytosis without anemia (Acute) Primary open angle glaucoma (POAG) of right eye, mild stage (Chronic) Cough (Acute) Tricuspid regurgitation (Acute) Beat, premature ventricular (Acute ~08/2022) 09/11/22 Cardiology 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 (Acute) Syncope (Chronic) Prolonged QT interval (Acute) Atrial tachycardia determined by electrocardiography (Acute) Internal hemorrhoids (Acute) Blood glucose abnormal (Acute 11/03/14) Trigger middle finger of right hand (Acute 04/25/16) Abdominal aortic aneurysm (AAA) 3.0 cm to 5.5 cm in diameter in male (Chronic) Found in October 2018, needs to be rechecked every 3 years Pure hypercholesterolemia (Chronic 01/31/12) goal LDL<70 Metabolic syndrome X (Chronic 02/15/13) goal 215# 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 s/p stenting x 5 2010 or 2011 at [facility] b. presenting symptom was primarily fatigue Hypertension (Chronic) Benign prostatic hypertrophy (Chronic) Atrial fibrillation (Chronic) I48.0 Paroxysmal atrial fibrillation 10/09/20 [facility] [place] Cardiology Medical History H/O: urinary stone Hx of colonic polyps Surgical History R small trigger finger release (05/28/16) [place] S/P ablation of atrial fibrillation (10/2018) steriotactic brain bx (01/27/15) [facility] [place] bx brain abscess Family History Mother , HF at age 89. Heart disease Father , stroke HBP at age 90. Essential hypertension Brother , heart at age 82. No problems noted. Brother No problems noted. 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 Pets and animals: No Sexually active: Yes Do you think of yourself as: straight/heterosexual Current gender identity: male What is your relationship status?: How often do you talk on the phone with friends or family?: three or more times per week How often do you get together with friends or relatives?: three or more times per week Do you belong to any clubs or organized social groups?: yes Panel score (0-1 are the most socially isolated patients): 3 What type of physical activity do you participate in: none Cassidy/Worship: None Special cassidy needs: No Seatbelt use: always Drive intox or ride w/intox 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: No Working smoke detector in home: Yes Fire extinguisher in home: Yes Carbon monox detector in home: Yes Do you feel safe at home: Yes Do you feel safe in your relationship?: Yes Discharge Plan Disposition Patient Disposition: Admit to [facility] Condition: Fair Discharge Details Clinical Impression: Left rib fracture, Elevated troponin I level, Influenza A, Orthostatic hypotension, Fall Primary Care Provider: Camacho Barrera ED Provider: Jacquie Mas Home Meds and New Rx's Prescriptions: No Action metoprolol tartrate 25 mg tablet 25 mg PO BID Qty: 180 3RF lisinopril 20 mg tablet 20 mg PO DAILY Qty: 90 1RF timolol maleate 0.5 % gel forming solution 1 drp ophthalmic (eye) BID clotrimazole 1 % cream 1 applic topical BID Qty: 45 3RF atorvastatin 10 mg tablet 80 mg PO DAILY Qty: 90 3RF clopidogrel 75 mg tablet 75 mg PO DAILY Hold Instructions: per [facility] [place]
[2024-01-01 09:19] LABS: Abs Immature Grans 0.04 10^3/uL (0.0-0.06); Absolute Basophil Count 0.05 10^3/uL (0.0-0.2); Absolute Eosinophil Count 0.05 10^3/uL (0.0-0.7); Absolute Lymphocyte Count 0.44 10^3/uL (1.2-3.4); Absolute Monocyte Count 0.55 10^3/uL (0.1-0.8); Absolute Neutrophil Count 6.98 10^3/uL (1.2-6.7); Basophils % 0.6; Eosinophils % 0.6; HGB 14.9 g/dL (13.5-17.5); Immature Grans % 0.5; Lymphocytes % 5.4; MCH 32.4 pg (27.0-33.0); MCHC 33.9 % (32.0-36.0); MCV 96 fL (80-95); MPV 10.6 fL (8.0-11.0); Monocytes % 6.8; Neutrophils % 86.1; Platelet Count 192 10^3/uL (130-400); RDW 13.5 % (11.8-14.1); RDW-SD 47.5 fL; WBC 8.11 10^3/uL (4.4-10.8)
[2024-01-01 09:32] LABS: INR 1.2 (0.9-1.1); PTT Activated 33.9 sec (23.6-32.8); Prothrombin Time 11.5 sec (9.1-11.1)
--- NOTE | 2024-01-01 09:37 | DI.CT_ITS ---
Exam(s) CT CHEST/ABD/PEL WO EXAM: CT CHEST/ABD/PEL WO CLINICAL HISTORY: Fall, Left side rib, back pain. TECHNIQUE: Imaging Protocol: Axial computed tomography images with coronal and sagittal reformatted images were created and reviewed CONTRAST MATERIAL: Intravenous: none Oral: None COMPARISON: CT CT THORAX ABD/PEL CTA from 07/31/[address] LUMBAR SPINE RECONS from 08/14/[address] ABDOMEN PELVIS CTA from 08/14/2023 FINDINGS: CHEST: LUNGS: Mild thickening of the inferior aspect of the left major fissure is unchanged from 08/14/2023 and 07/31/2023. Mild increased markings in the anterior basal segment of the left lower lobe are als o unchanged.. There are no new areas of infiltrate in either lung field and there are no pleural eff usions nor pneumothorax. No evidence of new lung contusion. MEDIASTINUM: No evidence of sternal fracture nor mediastinal hematoma. No new hilar adenopathy. Sli ghtly prominent right paratracheal and pretracheal lymph nodes are unchanged. There is no significan t subcarinal adenopathy. No axillary adenopathy. No supraclavicular adenopathy. Visualized thyroid unremarkable. CARDIAC: Mild cardiomegaly. No pericardial effusion. Diameter of the ascending thoracic aorta is en larged measuring 4.3 cm. The aortic arch is calcified with diameter of 2.8 cm. Descending thoracic aorta calcified with mildly dilated diameter, unchanged. OSSEOUS: There is an acute fracture of the anterior aspect of the left 9th rib.. ABDOMEN: There is no ascites. LIVER: No obvious laceration nor other focal findings on this non few study. GALLBLADDER/BILIARY: No obvious gallbladder pathology. CBD is not dilated. PANCREAS: No evidence of obvious pancreatic mass nor dilatation of the pancreatic duct. SPLEEN: Spleen is not enlarged. No evidence of laceration nor subcapsular hematoma. No obvious intr asplenic lesions. ADRENALS: There are no significant adrenal masses. KIDNEYS: No evidence of renal laceration nor subcapsular hematoma. There is a tiny punctate 1 millim eter nonobstructive calculus in the posterior cortex of the right kidney. No other significant focal renal findings.. ABDOMINAL AORTA: The abdominal aorta is heavily calcified and atherosclerotic. There is a mild aneur ysmal dilatation with maximum external diameter 2.7 cm. The common iliac arteries are also heavily c alcified but not enlarged. LYMPH NODES: There is no retroperitoneal nor para-aortic adenopathy. ABDOMINAL WALL/GI: No evidence of significant anterior abdominal wall nor inguinal hernia. No evidence of significant subcutaneous bruising nor fluid collection. No evidence of mesenteric nor bowel wall hematoma. PELVIS: LYMPH NODES: No intrapelvic hematoma. No intrapelvic nor inguinal adenopathy. GI: No evidence of appendicitis.No evidence of sigmoid diverticulitis. URINARY BLADDER: Unremarkable. REPRODUCTIVE: Enlarged prostate. No significant obturator adenopathy. Seminal vesicles unremarkable . OSSEOUS: No fractures.. No significant osseous lesions. Degenerative disc disease at L5-S1 again no anat as well degenerative anterolisthesis L4 upon L5, unchanged. IMPRESSION: 1. There is an acute minimally displaced fracture of the anterior aspect of the left 9th rib. No oth er acute rib fractures identified. 2. Chronic increased markings in left lung base in the anterior basal segment left lower lobe and thi ckening of the inferior aspect of the left major fissure are unchanged from prior CT scans. No new p ulmonary findings and no evidence of pneumothorax nor pleural effusion. 3. Other incidental findings as above, unrelated to trauma. Discussed with ER provider RADIATION DOSE DELIVERED: 1,804.66mGy.cm Total DLP DATA REPOSITORY: All CT scans at this facility are submitted to the National Radiology Data Registry (NRDR) Dose Index Registry (DIR) with the [employer] (ACR). RADIATION OPTIMIZATION: All CT scans at this facility use at least one of these dose optimization te chniques: automated exposure control; mA and/or kV adjustment per patient size (includes targeted exa ms where dose is matched to clinical indication); or iterative reconstruction.
[2024-01-01 09:42] LABS: ALT 23 U/L (16-63); AST 23 U/L (15-37); Albumin 3.7 g/dL (3.4-5.0); Alkaline Phosphatase 74 U/L (46-116); Anion Gap 11.9 mmol/L (3-11); BUN 16 mg/dL (7-18); Bilirubin, Total 1.9 mg/dL (0.2-1.0); CO2 27.1 mmol/L (21.0-32.0); Calcium 9.7 mg/dL (8.5-10.1); Chloride 98 mmol/L (98-107); Estimated GFR 77.04 (mL/min/1.73m2); Glucose 130 mg/dL (74-106); Potassium 3.7 mmol/L (3.5-5.1); Sodium 137 mmol/L (136-145); Total Protein 7.9 g/dL (6.4-8.2)
[2024-01-01 09:43] LABS: Troponin I 87 ng/L (< or =60)
[2024-01-01] MEDS: Normal Saline 500 ML IV ×2 (09:46→14:15)
[2024-01-01] MEDS: Lidocaine 5% Patch 1 PATCH TP (09:46)
[2024-01-01 10:45] LABS: Bilirubin Negative (Negative); Blood Moderate (Negative); Clarity Sl Cloudy (Clear); Glucose Negative (Negative); Ketones Negative (Negative); Leukocyte Esterase Trace (Negative); Nitrite Negative (Negative); Specific Gravity 1.025 (1.005-1.025); Urobilinogen 0.2 mg/dL (Up to 0.2); pH 5.5 (5-8)
[2024-01-01 10:55] LABS: Bacteria Rare HPF (Negative); C & S Indicated? Yes; Casts 3-5 Hyaline LPF (Negative); Crystals Negative HPF (Negative); Epithelial Cells Rare HPF (Negative); Mucus Moderate (Negative)
[2024-01-01 12:11] LABS: Troponin I 66 ng/L (< or =60)
[2024-01-01] MEDS: MORPHine 10 MG/ML VIAL 2 MG IVP (13:13)
[2024-01-01] MEDS: Normal Saline Flush 10 ML SYR IVP ×3 (13:14→20:24)
[2024-01-01] MEDS: fentaNYL 100 MCG/2 ML VIAL 25 MCG IVP (14:04)
[2024-01-01 16:11] LABS: Troponin I 72 ng/L (< or =60)
--- NOTE | 2024-01-01 17:38 | W.PM.HP.N ---
Date of service: 01/01/24 Time of Service: 17:38 Assessment and Plan Assessment and plan (1) Orthostatic hypotension: Status: Acute Assessment and plan: Likely related to mild dehydration from poor p.o. intake secondary to recent upper respiratory illness, symptoms improving and did test positive for influenza A, in addition to newly added Metroprolol and explosive diarrhea. Will continue gentle IV hydration overnight. Recheck orthostatic vital signs in the morning fall precautions Will hold lisinopril (2) Influenza A: Status: Acute Assessment and plan: Reports respiratory symptoms are improving, no indication for Tamiflu at this point (3) Elevated troponin I level: Status: Acute Assessment and plan: Troponins have remained flat EKG is nonischemic. No further monitoring needed at this time (4) Left rib fracture: Status: Acute Assessment and plan: Pain management and pulmonary toileting He is oxygenating well on room air (5) Atrial fibrillation: Status: Chronic Assessment and plan: Rate is controlled. Will hold Metroprolol. He is not anticoagulated on Xarelto secondary to intractable nosebleeds (6) Ischemic stroke: Status: Chronic Assessment and plan: Stable. Will continue clopidogrel and atorvastatin (7) Discharge planning issues: Status: Acute Assessment and plan: PT will be consulted Anticipated discharge to home with no new services tomorrow if remains medically stable discussed with DR Pedersen History of Present Illness History of Present Illness Chief Complaint: orthostatic hypotension Narrative: This is a 78-year-old male patient who presented to the emergency department by EMS after having a near syncopal episode this morning. He states he woke up to go to the bathroom and unexpectedly had explosive diarrhea. He states that he started washing himself up and then felt lightheaded and fell against the sink. He states striking the side of the sink caused instant sharp pain in his left chest wall. He put himself on the floor his heard the commotion and came in and summons 911. EMS did find him bradycardic and hypotensive. He tells me that he started his Lopressor the day before for history of atrial fibrillation. He states his rate has been controlled. He also states that he has had an upper respiratory illness for several days but that has been improving. Workup in the emergency department did show positive influenza and positive orthostatic vital signs. He did receive an IV fluid bolus but did remain symptomatic his workup also showed troponin that stayed flat at 60 to 80. He had no acute ischemic EKG changes he had no chest pain or shortness of breath. Hospitalist services was requested for observation admission overnight. Of note he is no longer taking digoxin as he did not tolerate it he is also no longer anticoagulated on Xarelto for his history of afibrillation for intractable epi taxis. He does take clopidogrel for history of CVA which he tolerates well. Review of Systems All systems reviewed & are unremarkable except as noted in HPI and below PFSH All Active Problems (Updated 01/01/24 @ 17:50 by Malena Fisher NP) Discharge planning issues (Acute) Fall (Acute) Orthostatic hypotension (Acute) Influenza A (Acute) Elevated troponin I level (Acute) Left rib fracture (Acute) Atherosclerosis of aorta (Chronic) Enlarged prostate (Acute) Orthostatic hypotension (Acute) Bradycardia (Acute) Atrial fibrillation with RVR (Acute) Encounter for monitoring digoxin therapy (Acute) Low back pain (Acute) Atrial fibrillation (Chronic) Syncope (Acute) History of left-sided carotid endarterectomy (Acute) 07/16/2023 at [facility] Peripheral artery disease (Acute) 08/15/23 F/u Vascular Non-healing skin lesion (Acute) Hyperlipidemia, unspecified (Acute) Acute ischemic stroke (Acute 05/18/23) Occlusion of right vertebral artery (Acute) Carotid stenosis, bilateral (Chronic) I65.21 - Right-sided extracranial carotid artery stenosis Ischemic stroke (Chronic) Macrocytosis without anemia (Acute) Primary open angle glaucoma (POAG) of right eye, mild stage (Chronic) Cough (Acute) Tricuspid regurgitation (Acute) Beat, premature ventricular (Acute ~08/2022) 09/11/22 Cardiology 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 (Acute) Syncope (Chronic) Prolonged QT interval (Acute) Atrial tachycardia determined by electrocardiography (Acute) Internal hemorrhoids (Acute) Blood glucose abnormal (Acute 11/03/14) Trigger middle finger of right hand (Acute 04/25/16) Abdominal aortic aneurysm (AAA) 3.0 cm to 5.5 cm in diameter in male (Chronic) Found in October 2018, needs to be rechecked every 3 years Pure hypercholesterolemia (Chronic 01/31/12) goal LDL<70 Metabolic syndrome X (Chronic 02/15/13) goal 215# 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 s/p stenting x 5 2010 or 2011 at [facility] b. presenting symptom was primarily fatigue Hypertension (Chronic) Benign prostatic hypertrophy (Chronic) Atrial fibrillation (Chronic) I48.0 Paroxysmal atrial fibrillation 10/09/20 [facility] Cardiology Medical History H/O: urinary stone Hx of colonic polyps Surgical History R small trigger finger release (05/28/16) [place] S/P ablation of atrial fibrillation (10/2018) steriotactic brain bx (01/27/15) [facility] bx brain abscess Family History Mother , HF at age 89. Heart disease Father , stroke HBP at age 90. Essential hypertension Brother , heart at age 82. No problems noted. Brother No problems noted. Social History Smoking/Tobacco Use Status: Never Smoking risk assessment performed?: Yes Alcohol Intake: current Alcohol Intake frequency: 0-2 drinks per day Alcohol type: hard liquor Drug use: Never Substance use type: does not use Counseling given: No Adopted: No Caregiver/Support person: No Foster care: No Household members: spouse Housing: house Number of Children: 6 number of grandchildren: 13 Communication Needs: None and Corrective Lenses Education Level: college Details: Bachelor's degree Do you need help understanding health information?: Never current occupation: Retired [employer] Pets and animals: No Sexually active: Yes Do you think of yourself as: straight/heterosexual Current gender identity: male What is your relationship status?: How often do you talk on the phone with friends or family?: three or more times per week How often do you get together with friends or relatives?: three or more times per week Do you belong to any clubs or organized social groups?: yes Panel score (0-1 are the most socially isolated patients): 3 What type of physical activity do you participate in: none Cassidy/Anglican: None Special cassidy needs: No Seatbelt use: always Drive intox or ride w/intox petrol tanker driver: No Working smoke detector in home: Yes Fire extinguisher in home: Yes Carbon monox detector in home: Yes Do you feel safe at home: Yes Do you feel safe in your relationship?: Yes Meds Allergies and Home Medications Allergies Allergy/AdvReac Type Severity Reaction Status Date / Time venom-honey bee Allergy Severe HIVES Verified 01/01/24 08:48 [bee venom (honey bee)] TACHYCARDIA Penicillins Allergy Intermediate HIVES Verified 01/01/24 08:48 levetiracetam [From [facility]] AdvReac Severe leukopenia Verified 01/01/24 08:48 prednisone AdvReac Severe rectal Verified 01/01/24 08:48 bleeding and diarrhea aspirin AdvReac Intermediate Nosebleeds Verified 01/01/24 08:48 ceftriaxone AdvReac Intermediate Leukopenia Verified 01/01/24 08:48 simvastatin AdvReac Intermediate LEG PAIN Verified 01/01/24 08:48 DR MCLEOD SHRIMP Allergy Intermediate HIVES , Uncoded 01/01/24 08:48 NAUSEA Home Medications Medication Instructions Recorded Confirmed Type timolol maleate 0.5 % eye gel 1 drp ophthalmic (eye) BID 05/08/23 01/01/24 History forming solution clotrimazole 1 % topical cream 1 applic topical BID #45 grams 06/27/23 01/01/24 Rx clopidogrel 75 mg tablet 75 mg PO DAILY 07/17/23 01/01/24 History lisinopril 20 mg tablet 20 mg PO DAILY #90 tabs 11/10/23 01/01/24 Rx metoprolol tartrate 25 mg tablet 25 mg PO BID #180 tabs 12/29/23 01/01/24 Rx atorvastatin 80 mg tablet 80 mg PO DAILY 01/01/24 01/01/24 History Exam Const General: cooperative, healthy appearing, comfortable and no acute distress Nutritional Appearance: average body habitus Orientation: alert, awake and oriented x3 HENMT Head: normal to inspection, normocephalic and atraumatic General nose exam: external nose normal Face and sinus: normal facial exam Eyes General: appearance normal, both eyes and all related structures Conjunctivae: conjunctivae normal Sclera: sclerae normal EOM: EOM intact bilaterally Neck Neck: normal visual inspection, full ROM and nontender Chest Chest: normal inspection of the chest Resp Effort & Inspection: normal respiratory effort Auscultation: clear to auscultation bilaterally, no rhonchi and no wheezes Cardio Rate: regular rate Rhythm: abnormal rhythm (afib no acute st segment changes) GI Inspection: normal to inspection Palpation: soft and nontender Skin General skin exam: no rashes or lesions noted Neuro General: patient alert, patient awake, patient oriented x3, tone normal and no focal motor deficits Cognition: normal cognition Speech: speech normal Extrem General: normal to inspection, full ROM and no pedal edema Results Labs 01/01/24 09:12 01/01/24 09:12 Labs: Laboratory Results - last 24 hr 01/01/24 01/01/24 01/01/24 09:12 10:38 11:38 WBC 8.11 RBC 4.60 Hgb 14.9 Hct 44.0 MCV 96 H MCH 32.4 MCHC 33.9 RDW 13.5 Plt Count 192 MPV 10.6 Immature Gran % 0.5 Neutrophils % 86.1 Lymphocytes % 5.4 Monocytes % 6.8 Eosinophils % 0.6 Basophils % 0.6 Nucleated RBC % 0.0 Absolute Neutrophils 6.98 H Absolute Lymphocytes 0.44 L Absolute Monocytes 0.55 Absolute Eosinophils 0.05 Absolute Basophils 0.05 PT 11.5 H INR 1.2 H APTT 33.9 H Sodium 137 Potassium 3.7 Chloride 98 Carbon Dioxide 27.1 Anion Gap 11.9 H BUN 16 Creatinine 1.0 Est GFR (CKD-EPI 2020) 77.04 Glucose 130 H Calcium 9.7 Magnesium 2.0 Total Bilirubin 1.9 H AST 23 ALT 23 Alkaline Phosphatase 74 Troponin I 87 H* 66 H* Total Protein 7.9 Albumin 3.7 Urine Color Yellow Urine Clarity Sl Cloudy Urine pH 5.5 Ur Specific [place] 1.025 Urine Protein 100 H Urine Ketones Negative Urine Blood Moderate H Urine Nitrite Negative Urine Bilirubin Negative Urine Urobilinogen 0.2 Ur Leukocyte Esterase Trace H Urine RBC 10-20 H Urine WBC 3-5 Ur Epithelial Cells Rare Urine Crystals Negative Urine Bacteria Rare Urine Casts 3-5 Hyaline Urine Mucus Moderate Ur Culture Indicated? Yes Urine Glucose Negative 01/01/24 15:45 WBC RBC Hgb Hct MCV MCH MCHC RDW Plt Count MPV Immature Gran % Neutrophils % Lymphocytes % Monocytes % Eosinophils % Basophils % Nucleated RBC % Absolute Neutrophils Absolute Lymphocytes Absolute Monocytes Absolute Eosinophils Absolute Basophils PT INR APTT Sodium Potassium Chloride Carbon Dioxide Anion Gap BUN Creatinine Est GFR (CKD-EPI 2020) Glucose Calcium Magnesium Total Bilirubin AST ALT Alkaline Phosphatase Troponin I 72 H* Total Protein Albumin Urine Color Urine Clarity Urine pH Ur Specific [place] Urine Protein Urine Ketones Urine Blood Urine Nitrite Urine Bilirubin Urine Urobilinogen Ur Leukocyte Esterase Urine RBC Urine WBC Ur Epithelial Cells Urine Crystals Urine Bacteria Urine Casts Urine Mucus Ur Culture Indicated? Urine Glucose Last Vital Signs Temp 36.5 C 01/01/24 16:35 Pulse 88 01/01/24 16:35 Resp 17 01/01/24 16:35 BP 125/78 01/01/24 16:35 Pulse Ox 97 01/01/24 16:35 Time Spent Time spent with Patient: 40-54 minutes Time was spent: preparing to see the patient(eg.review tests), obtaining and/or reviewing separately otained hiistory, ordering medications,tests, procedures, indepentently interpreting results and counseling the patient
[2024-01-01] MEDS: Acetaminophen 325 MG TAB 650 MG PO (20:24)
[2024-01-02] VITALS (10 sets, daily range): BP systolic 99–156; BP diastolic 59–83; PULSE 60–127; RESP 15–17; TEMP 36.3–36.8; O2SAT 96–100
[2024-01-02] MEDS: Normal Saline 1,000 ML 100 ML IV (05:49)
[2024-01-02 06:19] LABS: HGB 12.7 g/dL (13.5-17.5); MCH 31.7 pg (27.0-33.0); MCHC 33.4 % (32.0-36.0); MCV 95 fL (80-95); MPV 10.3 fL (8.0-11.0); Platelet Count 154 10^3/uL (130-400); RBC 4.01 10^6/uL (4.36-5.78); RDW 13.5 % (11.8-14.1); RDW-SD 47.4 fL; WBC 5.76 10^3/uL (4.4-10.8)
[2024-01-02 06:30] LABS: Anion Gap 9.8 mmol/L (3-11); BUN 17 mg/dL (7-18); CO2 24.2 mmol/L (21.0-32.0); CREATININE 0.7 mg/dL (0.70-1.30); Calcium 8.8 mg/dL (8.5-10.1); Chloride 104 mmol/L (98-107); Estimated GFR 94.31 (mL/min/1.73m2); Glucose 104 mg/dL (74-106); Magnesium 1.9 mg/dL (1.8-2.4); Potassium 3.6 mmol/L (3.5-5.1); Sodium 138 mmol/L (136-145)
[2024-01-02] MEDS: Atorvastatin 40 MG TAB 80 MG PO (08:02)
[2024-01-02] MEDS: Clopidogrel 75 MG TAB PO (08:02)
[2024-01-02] MEDS: Normal Saline Flush 10 ML SYR IVP ×3 (08:03→22:11)
[2024-01-02] MEDS: Acetaminophen 325 MG TAB 650 MG PO ×4 (08:03→19:36)
[2024-01-02] MEDS: dilTIAZem 30 MG TAB PO ×2 (08:17→11:23)
--- NOTE | 2024-01-02 08:48 | PT.INNT ---
PT Notes Visit Reasons: Orthostasis Hold off on PT eval this morning, patient's heart rate fluctuant at 110-145 bpm while lying in bed. Charge Nurse Munira in agreement and stated that he has been given his medications. Will check with nurse and patient this afternoon for PT evalaution, as ordered.
--- NOTE | 2024-01-02 09:18 | PHA.REVIEW2 ---
Pharmacy Admission Review Admission Clinical Review Admission Pharmacy Review: (Updated 01/01/24 @ 17:50 by Malena Fisher NP) Discharge planning issues (Acute) Fall (Acute) Orthostatic hypotension (Acute) Influenza A (Acute) Elevated troponin I level (Acute) Left rib fracture (Acute) venom-honey bee [bee venom (honey bee)] Allergy (Severe, Verified 01/01/24 08:48) HIVES TACHYCARDIA Penicillins Allergy (Intermediate, Verified 01/01/24 08:48) HIVES levetiracetam [From Keppra] Adverse Reaction (Severe, Verified 01/01/24 08:48) leukopenia prednisone Adverse Reaction (Severe, Verified 01/01/24 08:48) rectal bleeding and diarrhea aspirin Adverse Reaction (Intermediate, Verified 01/01/24 08:48) Nosebleeds ceftriaxone Adverse Reaction (Intermediate, Verified 01/01/24 08:48) Leukopenia simvastatin Adverse Reaction (Intermediate, Verified 01/01/24 08:48) LEG PAIN DR MCLEOD SHRIMP Allergy (Intermediate, Uncoded 01/01/24 08:48) HIVES , NAUSEA Resuscitation Status Full Code Height 6 ft 1 in Weight 94.801 kg Comments Comments/Follow Ups: Dehydration 2nd-xenia to Influenza-A, recently started Metoprolol for A-fib control. BP 137/75, 156/76, HR>100 this morning, had some low's 87-89 around admission time Pharmacy Admission Review Renal Dosing Renal Dosing: CrCl~ 81.6ml/min BUN 17 mg/dL (7-18) 01/02/24 06:00 Creatinine 0.7 mg/dL (0.70-1.30) 01/02/24 06:00 Medications needing adjustments: N/A Anticoagulation Anticoagulation: Hgb 12.7 g/dL (13.5-17.5) L D 01/02/24 06:00 Hct 38.0 % (40.0-50.0) L 01/02/24 06:00 Plt Count 154 10^3/uL (130-400) 01/02/24 06:00 INR 1.2 (0.9-1.1) H 01/01/24 09:12 Creatinine 0.7 mg/dL (0.70-1.30) 01/02/24 06:00 H/H down overnight, some moderate blood in urine DVT Prophylaxis: Reviewed Therapeutic Anticoagulation: N/A (Was on Xarelto, but dc'd due to intractable nosebleeds per MD H&P, Hx A-fib and Ischemic stroke (On Plavix and Atorvastatin, no Aspirin)) Relevant Labs Relevant Labs: Sodium 138 mmol/L (136-145) 01/02/24 06:00 Potassium 3.6 mmol/L (3.5-5.1) 01/02/24 06:00 Chloride 104 mmol/L (98-107) 01/02/24 06:00 Magnesium 1.9 mg/dL (1.8-2.4) 01/02/24 06:00 Cardiac Review Cardiac Review: Troponin I 72 ng/L (< or =60) H* 01/01/24 15:45 positive troponin' x3, remained stable/low BP, HR, EF%: Reviewed (Lisinopril and Metoprolol held at admission due to Orthostasis, but now HR>100, beginning some doses of Diltiazem) Home Meds Home Med List reviewed: Reviewed Relevent Home Meds Not ordered & why?: Metoprolol and Lisinopril held for Orthostasis at admission, no longer takes Aspirin or Digoxin, has been on Diltiazem in the past Comments Comments/Follow Ups: Dehydration 2nd-xenia to Influenza-A, recently started Metoprolol for A-fib control. BP 137/75, 156/76, HR>100 this morning, had some low's 87-89 around admission time
[2024-01-02] MEDS: dilTIAZem 25 MG/5 ML VIAL 10 MG IVP ×2 (09:30→12:32)
--- NOTE | 2024-01-02 10:20 | INITIAL_ITS ---
Date of service: 01/02/24 Time of Service: 10:20 Care Management Initial Assmt Initial Assessment REASON FOR HOSPITALIZATION:: Orthostasis PREVIOUS FUNCTIONAL STATUS/SOCIAL/FAMILY SUPPORTS:: Tomas lives in [facility] with his , Kisha. Together, they have six children. He has four of his own, she has one of her own, and they have one together. Both he and his were twice before, but they have now been for 47 years. His 's daughter and two of their grandchildren are living with Tomas and his currently. His son Amadeo lives nearby, and is very supportive. 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 He is independent with his ADL's at baseline. CURRENT FUNCTIONAL STATUS:: Tomas was lying in bed when CM met with him. He stated that he is doing alright, and that there have been many people in and out of his room today. He discussed what brought him into the hospital, stating that he feels that a change in his medication may have contributed to him being hospitalized. He stated that he had a similar response to starting metoprolol in the past. He is positive for the flu, and he reported that his is also sick at home, presumably with the flu, and that she is feeling much worse than him. CM reviewed that he is in observation for orthostatic hypotension. Tomas stated that he feels he may be able to return home later today or tomorrow. Per report, today he is in Afib with RVR; if his rate is controlled, he may be able to discharge as early as today. Tomas is comfortable with remaining overnight, if needed. His son will drive him home once medically ready. CM will continue to follow. ADVANCE DIRECTIVES:: On file; Kisha (spouse) listed as HCA. Michelle Gilman listed as alternate agent. Has patient been provided with info about the portal/API?: Yes Did the patient sign up for the portal?: Yes CODE STATUS:: Full Code INSURANCE COVERAGE / FINANCIAL ISSUES:: VBA CURRENT HOME/COMMUNITY SERVICES/EQUIPMENT:: No current services or equipment. PRIMARY CARE PHYSICIAN:: Camacho Barrera POTENTIAL DISCHARGE NEEDS:: Evaluations for further needs, follow up appointments. PATIENT/FAMILY EDUCATION NEEDS:: Review discharge instructions and limitations, discussion of self care needs including ask me three. ANTICIPATED BARRIERS TO DISCHARGE:: None. TRANSPORTATION:: Via private vehicle by his son. PLAN:: Tomas will return home once medically cleared. His son will drive him home via private vehicle. He will follow up with his PCP and discharge plan of care. CM will continue to follow. [facility] All Active Problems (Updated 01/01/24 @ 17:50 by Malena Fisher NP) Discharge planning issues (Acute) Fall (Acute) Orthostatic hypotension (Acute) Influenza A (Acute) Elevated troponin I level (Acute) Left rib fracture (Acute) Atherosclerosis of aorta (Chronic) Enlarged prostate (Acute) Orthostatic hypotension (Acute) Bradycardia (Acute) Atrial fibrillation with RVR (Acute) Encounter for monitoring digoxin therapy (Acute) Low back pain (Acute) Atrial fibrillation (Chronic) Syncope (Acute) History of left-sided carotid endarterectomy (Acute) 07/16/2023 at [facility] Peripheral artery disease (Acute) 08/15/23 F/u Vascular Non-healing skin lesion (Acute) Hyperlipidemia, unspecified (Acute) Acute ischemic stroke (Acute 05/18/23) Occlusion of right vertebral artery (Acute) Carotid stenosis, bilateral (Chronic) I65.21 - Right-sided extracranial carotid artery stenosis Ischemic stroke (Chronic) Macrocytosis without anemia (Acute) Primary open angle glaucoma (POAG) of right eye, mild stage (Chronic) Cough (Acute) Tricuspid regurgitation (Acute) Beat, premature ventricular (Acute ~08/2022) 09/11/22 Cardiology 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 (Acute) Syncope (Chronic) Prolonged QT interval (Acute) Atrial tachycardia determined by electrocardiography (Acute) Internal hemorrhoids (Acute) Blood glucose abnormal (Acute 11/03/14) Trigger middle finger of right hand (Acute 04/25/16) Abdominal aortic aneurysm (AAA) 3.0 cm to 5.5 cm in diameter in male (Chronic) Found in October 2018, needs to be rechecked every 3 years Pure hypercholesterolemia (Chronic 01/31/12) goal LDL<70 Metabolic syndrome X (Chronic 02/15/13) goal 215# 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 s/p stenting x 5 2010 or 2011 at [facility] b. presenting symptom was primarily fatigue Hypertension (Chronic) Benign prostatic hypertrophy (Chronic) Atrial fibrillation (Chronic) I48.0 Paroxysmal atrial fibrillation 10/09/20 [facility] Cardiology Medical History H/O: urinary stone Hx of colonic polyps Surgical History R small trigger finger release (05/28/16) [place] S/P ablation of atrial fibrillation (10/2018) steriotactic brain bx (01/27/15) [facility] bx brain abscess Family History Mother , HF at age 89. Heart disease Father , stroke HBP at age 90. Essential hypertension Brother , heart at age 82. No problems noted. Brother No problems noted. 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 [employer] Pets and animals: No Sexually active: Yes Do you think of yourself as: straight/heterosexual Current gender identity: male What is your relationship status?: How often do you talk on the phone with friends or family?: three or more times per week How often do you get together with friends or relatives?: three or more times per week Do you belong to any clubs or organized social groups?: yes Panel score (0-1 are the most socially isolated patients): 3 What type of physical activity do you participate in: none Cassidy/Judaism: None Special cassidy needs: No Seatbelt use: always Drive intox or ride w/intox paratransit driver: No Working smoke detector in home: Yes Fire extinguisher in home: Yes Carbon monox detector in home: Yes Do you feel safe at home: Yes Do you feel safe in your relationship?: Yes SDOH(Care Management) Screening Will the Patient Participate in the Screening?: Yes Do you worry about having a steady place to live?: no Problems where you live: no known problems In the past 12 months, have you had to go without electric, gas, oil or water in your home?: no Have you or anyone in your house had to go without enough food to eat?: no Has lack of transportation kept you from medical appointments or from doing things needed for daily living?: no Has anyone in your support network made you feel unsafe for any reason?: no
[2024-01-02] MEDS: Lidocaine 5% Patch 1 PATCH TP (10:50)
--- NOTE | 2024-01-02 13:15 | IN_ITS ---
PT Notes Visit Reasons: Orthostasis Physical Therapy Inpatient Initial Evaluation Date: 01/02/2024 Referring Doctor: Malena Fihser NP PT Orders: PT CONSULT: Eval/Treat Precautions: Fall. Standard. Activity as tolerated. Patient Profile/Admitting Diagnosis: Tomas is a 78-year-old male with past medical history significant for ischemic stroke and brain abscess lives with in a who presented to the ED on 01/01/2024 with complaints of left-sided rib and back pain status post fall off toilet while trying to get patient is admitted for management of orthostatic hypotension, influenza A, elevated Troponin I, left rib fracture, and AF. PMHX: All Active Problems (Updated 01/01/24 @ 17:50 by Malena Fisher NP) Discharge planning issues (Acute) Fall (Acute) Orthostatic hypotension (Acute) Influenza A (Acute) Elevated troponin I level (Acute) Left rib fracture (Acute) Atherosclerosis of aorta (Chronic) Enlarged prostate (Acute) Orthostatic hypotension (Acute) Bradycardia (Acute) Atrial fibrillation with RVR (Acute) Encounter for monitoring digoxin therapy (Acute) Low back pain (Acute) Atrial fibrillation (Chronic) Syncope (Acute) History of left-sided carotid endarterectomy (Acute) 07/16/2023 at [facility] Peripheral artery disease (Acute) 08/15/23 F/u Vascular Non-healing skin lesion (Acute) Hyperlipidemia, unspecified (Acute) Acute ischemic stroke (Acute 05/18/23) Occlusion of right vertebral artery (Acute) Carotid stenosis, bilateral (Chronic) I65.21 - Right-sided extracranial carotid artery stenosis Ischemic stroke (Chronic) Macrocytosis without anemia (Acute) Primary open angle glaucoma (POAG) of right eye, mild stage (Chronic) Cough (Acute) Tricuspid regurgitation (Acute) Beat, premature ventricular (Acute ~08/2022) 09/11/22 Cardiology 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 (Acute) Syncope (Chronic) Prolonged QT interval (Acute) Atrial tachycardia determined by electrocardiography (Acute) Internal hemorrhoids (Acute) Blood glucose abnormal (Acute 11/03/14) Trigger middle finger of right hand (Acute 04/25/16) Abdominal aortic aneurysm (AAA) 3.0 cm to 5.5 cm in diameter in male (Chronic) Found in October 2018, needs to be rechecked every 3 years Pure hypercholesterolemia (Chronic 01/31/12) goal LDL<70 Metabolic syndrome X (Chronic 02/15/13) goal 215# 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 s/p stenting x 5 2010 or 2011 at [facility] b. presenting symptom was primarily fatigue Hypertension (Chronic) Benign prostatic hypertrophy (Chronic) Atrial fibrillation (Chronic) I48.0 Paroxysmal atrial fibrillation 10/09/20 [facility] Cardiology Medical History H/O: urinary stone Hx of colonic polyps Surgical History R small trigger finger release (05/28/16) [place] S/P ablation of atrial fibrillation (10/2018) steriotactic brain bx (01/27/15) [facility] bx brain abscess Social History/Home Situation: Lives with in a farm house with 2 steps to enter with rails on both sides. Independent with all aspects of ADLs prior to admission. 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 Equipment Owned/DME: [facility] Subjective: Denied headache, chest pain, and lightheadedness throughout session. Feels some generalized weakness. Complained of pain in the L side of chest rib area when sitting up from standing. Objective: General Observation: Sitting on bedside chair. Telemetry monitoring in place. L leg muscles atrophic (chronic). L UE swollen. Mental Status: Alert and oriented as to person, place, time, and purpose. Able to pay attention, focus, and respond appropriately. Pain: 3-4/10 in the L rib area Vital Signs: BP sitting 97/67 mmHg, standing 96/65 mmHg, after walking 25 feet 126/87 mmHg, after walking 50 feet 126/86 mmHg ROM: Right Upper Extremity: Shoulder Flexion WFL. Shoulder abduction WFL. Elbow flexion WFL. Wrist flexion WFL. Functional opening and closing of hand WFL. Left Upper Extremity: Shoulder Flexion WFL. Shoulder abduction WFL. Elbow flexion WFL. Wrist flexion WFL. Functional opening and closing of hand WFL. Right Lower Extremity: Hip flexion WFL. Hip abduction WFL. Knee flexion WFL. Ankle dorsiflexion WFL. Ankle plantarflexion WFL. Left Lower Extremity: Hip flexion WFL. Hip abduction WFL. Knee flexion WFL. Ankle dorsiflexion WFL. Ankle plantarflexion WFL. Strength: Right Upper Extremity: Shoulder flexors 5/5. Shoulder abductors 5/5. Elbow flexors 5/5. Elbow extensors 5/5. Criminal Analyst strong. Left Upper Extremity: Shoulder flexors 5/5. Shoulder abductors 5/5. Elbow flexors 5/5. Elbow extensors 5/5. Criminal Analyst strong. Right Lower Extremity: Hip flexors 4+/5. Hip abductors 4+/5. Knee flexors 5/5. Knee extensors 4+/5. Ankle dorsiflexors 5/5. Ankle plantarflexors 5/5. Left Lower Extremity: Hip flexors 4+/5. Hip abductors 4+/5. Knee flexors 5/5. Knee extensors 5/5. Ankle dorsiflexors 4-/5. Ankle plantarflexors 4-/5. Bed Mobility/Transfers: Minimal cueing provided for use of B hands as needed for support, movement sequence, AD management, and posture to reduce fall risk and minimize pain report Rolling supervision Supine to sit supervision Sit to supine supervision Sit to stand contact guard assist with FWW Stand to sit contact guard assist with FWW Bed to reclining chair contact guard assist with FWW Gait: Facilitated safe and correct performance of level surface ambulation starting with 25 using front wheeled walker with wheelchair follow for safety with blood pressure at 126/76 mmHg. After 3 minutes of seated rest patient was able to 25 feet using front wheeled walker with no symptoms. Patient was then able to tole rate 50 feet of distance from the nurse's station back to his room blood pressure reading of 126/86 mmHg after activity. Minimal cues given for slow movement transition. Walker used for energy conservation and increased stability. Balance: Static Sitting: Normal Dynamic Sitting: Normal Static Standing: Fair Dynamic Standing: Fair Special Tests: Mobility Limitations Standardized Measure [facility]-P[facility] 6 clicks Basic Mobility Inpatient Short Form: Raw Score: 18 CMS Score: 47% deficit Informed Consent/Education: Patient was instructed in purpose of PT consult and plan of care. Agreeable to proceed with established PT POC to achieve personal goals. ASSESSMENT: Asymptomatic throughout session today. BP started off low at rest in the high 90s systolically but went up with ambulation activity. Patient presents with clinical signs and symptoms consistent with current/admitting diagnoses that have resulted to mobility limitations, gait instability, generalized weakness, and overall ADL decline as demonstrated by the following impairment level findings: 1. Impaired sitting/standing balance 2. Impaired activity tolerance Impairments are contributing to the following functional limitations: 1. Decline in bed mobility skills 2. Decline in transfer skills 3. Difficulty with ambulation without assistive device and physical assistance 4. Increased completion time for mobility ADL performance 5. Increased risk for falls 6. Difficulty with managing steps alone safely Patient is assessed as a 68734 moderate complexity based on the following: History: 78-year-old female with past medical history as indicated above Examination: Demonstrable impairment in strength, balance, and mobility level with underlying impairments and functional limitations as exhibited above as well as deficit score of 47% utilizing the [facility] Mobility Inpatient Short Form Presentation: Evolving Decision Makin moderate complexity Goals: Goals X1 week 1. Supine-Sit independent 2. Sit-Supine independent 3. Sit-Stand independent 4. Stand-Sit independent with no AD 5. Bed-Chair independent with no AD 6. Chair-Bed independent with no AD 7. Independent gait on level surface with use of FWW for at least 300 feet without report of pain nor dyspnea 8. Independent stair negotiation while holding onto B rails for at least 2 steps without report of pain nor dyspnea 9. Independent with home exercise program 10. Good static and dynamic standing balance/tolerance Plan of Care/Treatment Plan: 1-2x/day, 7 days/week x 1 week. Plan of care has been reviewed with the CUSTOMER MARKETING ASSISTANT providing the service under Physical Therapy direction. Initiate Physical Therapy intervention for pain management as needed, strengthening, bed mobility, transfers, gait, stairs, balance training, and use of assistive device. DISCHARGE RECOMMENDATIONS: [] Home with no services [] [X] Home with services. Patient will benefit from home health PT services in order to progress mobility level using least restrictive assistive ambulatory device, assess home safety, identify additional equipment needs, and establish a functional maintenance program that will increase ability of patient to remain at home. [] Home with outpatient PT [] [] SNF for continued rehabilitation [] [] Care Home Care [] [] SNF versus LTC based on ability to participate and progress [] TREATMENT CODE/TIME: 69396 x 20 minutes for 1 unit, 9753 0 x 20 minutes for 1 unit beginning at 13:15 PM. Thank you for the opportunity to participate in the care of this patient. Rashmi Wade PT, DPT, CLT [facility] [place], [place]
--- NOTE | 2024-01-02 15:12 | CHAPLAIN ---
Tomas is resting in bed when I visited. He said he lives in [facility] and has supportive family. I explained my role and offered support.
--- NOTE | 2024-01-02 16:27 | W.PM.PROGNOT ---
Date of Service Date of service: 01/02/24 Time of Service: 16:27 Assessment and Plan Assessment and plan (1) Atrial fibrillation with RVR: Status: Acute Assessment and plan: Does not want to reinitiate metoprolol. Has been given Cardizem with improvement in his rate. Titrate as needed He is not anticoagulated on Xarelto secondary to intractable nosebleeds (2) Orthostatic hypotension: Status: Acute Assessment and plan: Likely related to mild dehydration from poor p.o. intake secondary to recent upper respiratory illness, symptoms improving and did test positive for influenza A, in addition to newly added Metroprolol and explosive diarrhea. Stop IV hydration, euvolemic. no longer orthostatic fall precautions continue to hold lisinopril (3) Influenza A: Status: Acute Assessment and plan: Reports respiratory symptoms are improving, no indication for Tamiflu at this point (4) Elevated troponin I level: Status: Acute Assessment and plan: Troponins have remained flat EKG is nonischemic. No further monitoring needed at this time (5) Left rib fracture: Status: Acute Assessment and plan: Pain management and pulmonary toileting He is oxygenating well on room air (6) Ischemic stroke: Status: Chronic Assessment and plan: Stable. Will continue clopidogrel and atorvastatin (7) Discharge planning issues: Status: Acute Assessment and plan: PT will be consulted Anticipated discharge to home with no new services tomorrow if remains medically stable discussed with DR Pedersen Subjective Subjective Patient reports: no new complaints, tolerating liquids well, tolerating a regular diet and afebrile; denies shortness of breath Interval history since last seen: Episode of A-fib with RVR up into the 160s today patient did feel lightheaded no syncope Exam Const General: cooperative, healthy appearing, comfortable and no acute distress Nutritional Appearance: average body habitus Orientation: alert, awake and oriented x3 HENMT Head: normal to inspection, normocephalic and atraumatic General nose exam: external nose normal Face and sinus: normal facial exam Eyes General: appearance normal, both eyes and all related structures Conjunctivae: conjunctivae normal Sclera: sclerae normal EOM: EOM intact bilaterally Neck Neck: normal visual inspection, full ROM and nontender Chest Chest: normal inspection of the chest Resp Effort & Inspection: normal respiratory effort Auscultation: clear to auscultation bilaterally, no rhonchi and no wheezes Cardio Rate: regular rate and tachycardic Rhythm: abnormal rhythm (afib no acute st segment changes) GI Inspection: normal to inspection Palpation: soft and nontender Skin General skin exam: no rashes or lesions noted Neuro General: patient alert, patient awake, patient oriented x3, tone normal and no focal motor deficits Cognition: normal cognition Speech: speech normal Extrem General: normal to inspection, full ROM and no pedal edema Objective Last Vital Signs Temp 36.8 C 01/02/24 16:09 Pulse 66 01/02/24 16:09 Resp 17 01/02/24 16:09 BP 122/59 L 01/02/24 16:09 Pulse Ox 96 01/02/24 16:09 Laboratory Results - last 24 hr 01/02/24 06:00 WBC 5.76 RBC 4.01 L Hgb 12.7 L D Hct 38.0 L MCV 95 MCH 31.7 MCHC 33.4 RDW 13.5 Plt Count 154 MPV 10.3 Sodium 138 Potassium 3.6 Chloride 104 Carbon Dioxide 24.2 Anion Gap 9.8 BUN 17 Creatinine 0.7 Est GFR (CKD-EPI 2020) 94.31 Glucose 104 Calcium 8.8 Magnesium 1.9 Time Spent with Patient Time Spent with Patient: 35-49 minutes Time was spent: preparing to see the patient(eg.review tests), obtaining and/or reviewing separately otained hiistory, ordering medications,tests, procedures, indepentently interpreting results, counseling the patient and care coordination
[2024-01-02] MEDS: dilTIAZem 30 MG TAB 45 MG PO ×2 (16:44→22:11)
[2024-01-03 00:19] VITALS: BP 119/70; PULSE 96; RESP 20; TEMP 36.3; O2SAT 96
[2024-01-03 03:36] VITALS: BP 133/93; PULSE 92; RESP 20; TEMP 36.9; O2SAT 98
[2024-01-03] MEDS: dilTIAZem 30 MG TAB 45 MG PO (03:53)
[2024-01-03 07:58] VITALS: BP 124/81; PULSE 70; RESP 18; TEMP 36.5; O2SAT 95
[2024-01-03] MEDS: Clopidogrel 75 MG TAB PO (08:01)
[2024-01-03] MEDS: Normal Saline Flush 10 ML SYR IVP (08:01)
[2024-01-03] MEDS: Atorvastatin 40 MG TAB 80 MG PO (08:03)
[2024-01-03] MEDS: Acetaminophen 325 MG TAB 650 MG PO ×2 (08:03→10:29)
--- NOTE | 2024-01-03 09:48 | DSE_ITS ---
Date of service: 01/03/24 Time of Service: 09:49 DS: Diagnosis Discharge Diagnosis (1) Atrial fibrillation with RVR: Status: Acute (2) Orthostatic hypotension: Status: Acute (3) Influenza A: Status: Acute (4) Elevated troponin I level: Status: Acute (5) Left rib fracture: Status: Acute (6) Ischemic stroke: Status: Chronic (7) Discharge planning issues: Status: Acute Discharge Plan Disposition Patient Disposition: Home Condition: Improving Discharge Details Reason For Visit: Orthostasis Admit Date/Time: 01/01/24 15:43 Admit Provider: Bird Pedersen Attending Provider: Bird Pedersen Primary Care Provider: Camacho Barrera [facility] Course Hospital Course: This 78-year-old male patient with past medical history of CVA on clopidogrel, atrial fibrillation on metoprolol presented to the ED at [facility] on 01/01/2024 via EMS with complaints of having had a near syncopal episode in the morning the patient stated waking up to go to the bathroom having an explosive diarrhea episode. I started to wash if felt lightheaded and fell against the sink. At the time the patient reported striking the side of the sink causing instant sharp pain to his left chest wall. He then lowered himself to the floor and his hearing the commotion came in and dialed 911. When EMS arrived the patient was bradycardic and hypotensive. The patient reported that he started his metoprolol the day prior for history of atrial fibrillation; reporting rate control. The patient used to be on digoxin but did not tolerate it well, and Xarelto was also stopped due to intractable epistaxis. Patient also stating that he had had a history of respiratory illness for several days with improvement. In the emergency department the patient was positive for influenza A as per [id number] testing by nursing and had orthostatic vital signs. The patient received an IV fluid bolus but remained symptomatic with troponin staying flat at 60-80 without ischemic changes to his EKG, chest pain or shortness of breath. The hospitalist was consulted and the patient was admitted for overnight observation. During his stay, the patient was on a vision therapist and remained in atrial fibrillation with final heart rates ranging from 60 to low 100s. As the patient was unwilling to take metoprolol due to intolerance, the started in the emergency room was adjusted to achieve rate control. The patient will be discharged home on daily Cardizem CD in the morning. As the patient experienced orthostatic hypotension, lisinopril was held and further management of this drug will be conducted by the primary care provider. The patient reported being well-educated on precautions to take with orthostatic hypotension such as getting up slowly. The patient will also be discharged home on is home meds clopidogrel and atorvastatin. The patient will have to follow-up with his primary care provider within [address] Pedersen Home Meds and New Rx's Prescriptions: New lidocaine 5 % Adhesive Patch,Medicated 1 patch topical Q24H Qty: 30 0RF acetaminophen 325 mg Tablet 650 mg PO QID Qty: 40 0RF diltiazem HCl 240 mg capsule,extended release 24hr 240 mg PO QAM Qty: 30 0RF Continued timolol maleate 0.5 % gel forming solution 1 drp ophthalmic (eye) BID clotrimazole 1 % cream 1 applic topical BID Qty: 45 3RF atorvastatin 80 mg tablet 80 mg PO DAILY Patient Comments: TAKE ONE TABLET BY MOUTH EVERY EVENING clopidogrel 75 mg tablet 75 mg PO DAILY Hold Instructions: per [facility] Discontinued metoprolol tartrate 25 mg tablet 25 mg PO BID Qty: 180 3RF lisinopril 20 mg tablet 20 mg PO DAILY Qty: 90 1RF Discharge Instructions Referrals: CARDIOLOGY,[facility] [OTHER] - (F/u within a week ) Camacho Barrera DO [Primary Care Provider] - (F/u with the PCP within one week) Activity:: Activity as Tolerated Equipment/Supplies:: No Equipment Needed Diet:: As Tolerated Discharge Orders Discharge Orders: Discharge Order (Routine); Ordered 01/03/24 Ordered By: Portia Rouse DS: Summary Time Spent with Patient providing and/or coordinating discharge services: Greater than 30 minutes Status at Discharge Functional status at discharge: independent ambulation Overall status at discharge: patient is progressing back to baseline Mental Status: mental status grossly normal Speech and Movement: speech and movement normal Mood: congruent mood Affect: normal affect Quality:SDOH Health Related Social Needs: No Data to Display Exam Narrative Exam Narrative: Constitutional The patient is lying in bed comfortable without acute distress HENMT: Facial structures with normal appearance Neck : No JVD Neuro:alert and oriented to self, person, place, time and situation. No neurological focal deficit Resp: Normal respiratory pattern, clear lung bilaterally Cardio: atrial fibrillation HR 101-112 , no murmur, capillary refill<3 sec., bilateral radial and dorsalis pedis pulses are positive GI: Abdomen is not distended, soft and non tender, bowel sounds are present : Negative Costovertebral angle tenderness Back/spine/Pelvis: No back tenderness, normal alignment Extremities: strength 5/5 to bilateral lower and upper extremities Psych: RASS 0, congruent mood and normal affect. Psych Mental Status: mental status grossly normal Speech and Movement: speech and movement normal Mood: congruent mood Affect: normal affect DS: Data Vitals/I&O Vitals and I&O: Vital Signs Temperature 36.5 C 01/03/24 07:58 Temperature Source Tympanic 01/03/24 07:58 Pulse 70 01/03/24 07:58 Pulse Rhythm Regular 01/03/24 08:15 Pulse 109 H 01/01/24 16:10 Respiratory Rate 18 01/03/24 07:58 Respiratory Effort Normal 01/03/24 08:15 Respiratory Depth Normal 01/03/24 08:15 Respiratory Pattern Normal 01/03/24 08:15 Blood Pressure 124/81 01/03/24 07:58 Blood Pressure Mean 91 01/01/24 16:01 Blood Pressure Position Supine 01/01/24 08:38 Pulse Oximetry 95 01/03/24 07:58 Oxygen Delivery Method Room Air 01/03/24 07:58 Oxygen Flow Rate 0 01/03/24 07:58 Pain Level 1 01/03/24 08:03 Intake & Output 01/02/24 01/02/24 01/03/24 11:59 23:59 11:59 Intake Total 608.333 / 978.333 370 / 978.333 300 / 300 Output Total 1000 / 1125 125 / 1125 475 / 475 Balance -391.667 / -146.667 245 / -146.667 -175 / -175 Intake: IV 608.333 / 618.333 10 / 618.333 Oral 360 / 360 300 / 300 Output: Urine 1000 / 1125 125 / 1125 475 / 475 Other: Urine Color Straw Straw Yellow Urine Appearance Cloudy Clear Clear Urine Odor Normal Normal None Voiding Methods Urinal Urinal Urinal PFSH All Active Problems (Updated 01/01/24 @ 17:50 by Malena Fisher NP) Discharge planning issues (Acute) Fall (Acute) Orthostatic hypotension (Acute) Influenza A (Acute) Elevated troponin I level (Acute) Left rib fracture (Acute) Atherosclerosis of aorta (Chronic) Enlarged prostate (Acute) Orthostatic hypotension (Acute) Bradycardia (Acute) Atrial fibrillation with RVR (Acute) Encounter for monitoring digoxin therapy (Acute) Low back pain (Acute) Atrial fibrillation (Chronic) Syncope (Acute) History of left-sided carotid endarterectomy (Acute) 07/16/2023 at [facility] Peripheral artery disease (Acute) 08/15/23 F/u Vascular Non-healing skin lesion (Acute) Hyperlipidemia, unspecified (Acute) Acute ischemic stroke (Acute 05/18/23) Occlusion of right vertebral artery (Acute) Carotid stenosis, bilateral (Chronic) I65.21 - Right-sided extracranial carotid artery stenosis Ischemic stroke (Chronic) Macrocytosis without anemia (Acute) Primary open angle glaucoma (POAG) of right eye, mild stage (Chronic) Cough (Acute) Tricuspid regurgitation (Acute) Beat, premature ventricular (Acute ~08/2022) 09/11/22 Cardiology 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 (Acute) Syncope (Chronic) Prolonged QT interval (Acute) Atrial tachycardia determined by electrocardiography (Acute) Internal hemorrhoids (Acute) Blood glucose abnormal (Acute 11/03/14) Trigger middle finger of right hand (Acute 04/25/16) Abdominal aortic aneurysm (AAA) 3.0 cm to 5.5 cm in diameter in male (Chronic) Found in October 2018, needs to be rechecked every 3 years Pure hypercholesterolemia (Chronic 01/31/12) goal LDL<70 Metabolic syndrome X (Chronic 02/15/13) goal 215# 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 s/p stenting x 5 2010 or 2011 at [facility] b. presenting symptom was primarily fatigue Hypertension (Chronic) Benign prostatic hypertrophy (Chronic) Atrial fibrillation (Chronic) I48.0 Paroxysmal atrial fibrillation 11/9/20 [facility] Cardiology Medical History H/O: urinary stone Hx of colonic polyps Surgical History R small trigger finger release (05/28/16) [place] S/P ablation of atrial fibrillation (10/2018) steriotactic brain bx (01/27/15) [facility] bx brain abscess Family History Mother , HF at age 89. Heart disease Father , stroke HBP at age 90. Essential hypertension Brother , heart at age 82. No problems noted. Brother No problems noted. 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 Pets and animals: No Sexually active: Yes Do you think of yourself as: straight/heterosexual Current gender identity: male What is your relationship status?: How often do you talk on the phone with friends or family?: three or more times per week How often do you get together with friends or relatives?: three or more times per week Do you belong to any clubs or organized social groups?: yes Panel score (0-1 are the most socially isolated patients): 3 What type of physical activity do you participate in: none Cassidy/Latter Day: None Special cassidy needs: No Seatbelt use: always Drive intox or ride w/intox automobile drivers: No Working smoke detector in home: Yes Fire extinguisher in home: Yes Carbon monox detector in home: Yes Do you feel safe at home: Yes Do you feel safe in your relationship?: Yes Time Spent with Patient Time Spent with Patient: >85 minutes Time was spent: preparing to see the patient(eg.review tests), obtaining and/or reviewing separately otained hiistory, ordering medications,tests, procedures, referring, communicating with other health ambulatory care, indepentently interpreting results, counseling the patient and care coordination
--- NOTE | 2024-01-03 10:10 | PHA.ACLINA_ITS ---
Renal Dosing Renal Dosing: BUN 17 mg/dL (7-18) 01/02/24 06:00 Creatinine 0.7 mg/dL (0.70-1.30) 01/02/24 06:00 Anticoagulation Anticoagulation: Hgb 12.7 g/dL (13.5-17.5) L D 01/02/24 06:00 Hct 38.0 % (40.0-50.0) L 01/02/24 06:00 Plt Count 154 10^3/uL (130-400) 01/02/24 06:00 INR 1.2 (0.9-1.1) H 01/01/24 09:12 Creatinine 0.7 mg/dL (0.70-1.30) 01/02/24 06:00 Relevant Labs Relevant Labs: Sodium 138 mmol/L (136-145) 01/02/24 06:00 Potassium 3.6 mmol/L (3.5-5.1) 01/02/24 06:00 Chloride 104 mmol/L (98-107) 01/02/24 06:00 Magnesium 1.9 mg/dL (1.8-2.4) 01/02/24 06:00 DM Control DM Control: Glucose 104 mg/dL (74-106) 01/02/24 06:00 Cardiac Review Cardiac Review: Troponin I 72 ng/L (< or =60) H* 01/01/24 15:45 Current Meds Comments: Patient's A-fib more stable on Diltiazem overnight, cautioned provider about potential myopathy and Rhabo with patient's Atorvastatin 80mg dose. AUC and Cmax can be increased 1.2-1.5 fold with CY Inhibitors (Moderate) which may increase the serum concentration of Atorvastatin. Severity Moderate. Comments Comments/Follow Ups: Patient being discharged on Diltizem 180mg CD for Afib, Me toprolol and Lisinopril stopped.
[2024-01-03 10:20] VITALS: PULSE 144
--- NOTE | 2024-01-03 10:23 | PT.INTREAT ---
PT Notes Visit Reasons: Orthostasis Inpatient Physical Therapy Treatment Note [facility] Date: 01/03/24 PRECAUTIONS:influenza A ] OBJECTIVE: ? Therapeutic Activities (62345u[]): Direct one-on-one instruction in dynamic activities to improve functional performance. ? BED MOBILITY/TRANSFERS? Sit-supine: I ? Sit-stand: SBA? Stand-sit: SBA ? Provided skilled cues and instruction on performance and technique throughout. Gait Training (00090c[]): Direct one-on-one instruction and skilled instruction in: ? GAIT? Assistive Device: FWW? Weight bearing: Full Assist: SBA? Distance:? Approx 150ft ? Therapeutic Exercises (70854u[2]): Direct one-on-one instruction in therapeutic exercises to develop strength, endurance, range of motion and flexibility. ? Exercises ? Seated Rowing x 10 Seated LAQ x 10 Seated marching x 10 Seated hip abd x 10 Ambulation ? Assistive Device: FWW? Weight bearing: Full Assist: SBA ? Distance:? Approx 150ft ? ASSESSMENT:? Pt tolerated today's session well. Post ambulation nursing mentioned increased HR so to hold on more walking and just light exercise. PLAN: Cont as per PT POC. TREATMENT CODE/TIME: 9:40-10:15 (35) TA TP
[2024-01-03] MEDS: dilTIAZem 30 MG TAB PO (10:29)
[2024-01-03] MEDS: Lidocaine 5% Patch 1 PATCH TP (10:30)
--- NOTE | 2024-01-03 10:31 | PDOC.CMDIS ---
Date of service: 01/03/24 Time of Service: 10:31 LACE Index Scoring Tool Questions: Length of Stay (in days): 2 Was the patient admitted via the E.D.?: Yes Comorbidities: Cerebrovascular Disease E.D. Visits: 6 Answers: Total Score: 10 Risk of Readmission: High Risk Care Management Discharge Plan Reason for Hospitalization: Orthostasis Discharge Plan: Tomas will return home today with no new services. His son will drive him home via private vehicle. He will follow up with his PCP and discharge plan of care. He is happy to be going home. Patient/Family Education Needs: Review discharge instructions and limitations, discussion of self care needs including ask me three. SDTN Health Related Social Needs: No Data to Display
[2024-01-03 11:09] VITALS: BP 145/77; PULSE 77; RESP 18; TEMP 36.9; O2SAT 97
[2024-01-03] MEDS: dilTIAZem CD 180 MG CAPCR PO (12:52)
== END 2024-01-03 15:35 | disposition home or self-care (01) ==
LOC: ER 16:00 → MS 16:27
PROVIDERS: Admitting Provider Family Medicine; Emergency Provider Registered Nurse Emergency; PCP Family Medicine; Visit Provider Family Medicine
DX: I95.1 Orthostatic hypotension (principal); J10.1 Influenza due to other identified influenza virus with other respiratory manifestations; S22.32XA Fracture of one rib, left side, initial encounter for closed fracture; R74.8 Abnormal levels of other serum enzymes; R19.7 Diarrhea, unspecified; N40.0 Benign prostatic hyperplasia without lower urinary tract symptoms; M54.50 Low back pain, unspecified; I70.0 Atherosclerosis of aorta; I73.9 Peripheral vascular disease, unspecified; E78.5 Hyperlipidemia, unspecified; Z86.73 Personal history of transient ischemic attack (TIA), and cerebral infarction without residual deficits; I71.40 Abdominal aortic aneurysm, without rupture, unspecified; I25.10 Atherosclerotic heart disease of native coronary artery without angina pectoris; I48.0 Paroxysmal atrial fibrillation; W19.XXXA Unspecified fall, initial encounter
CPT/HCPCS: 00123; 36415; 71250; 80048; 80053; 85027; 87426; 93005; 96361; 96374; 96375; 96376; 97110; 97162; 97530; 99285; 74176; 81003; 81015; 83735; 84484; 85025; 85610; 85730; 87086; 93010; 99223; 99233; 99239; G0378; J2270; J3010; J3490

== ENCOUNTER 2024-01-12 08:17 | Inpatient (IN) | payer MEDICARE, SELFPAY ==
[2024-01-12] VITALS (102 sets, daily range): BP systolic 87–182; BP diastolic 60–137; PULSE 51–169; RESP 9–30; TEMP 36–36.8; O2SAT 88–100
--- NOTE | 2024-01-12 08:15 | RT.EKG_ITS ---
APPROVED REPORT Exam: Resting ECG Reason for Exam: SOB Patient Location: E HR:154 bpm ECG Measurements Heart Rate 154 AXIS ME [id number] P [id number] QRSd 76 QRS 66 QT 313 T 138 QTc 502 Conclusion Atrial fibrillation with rapid V-rate...A-rate 395 Ventricular bigeminy...bigeminy string>4 w/ V complexes Aberrant complex...small R-R variation, aberrant QRS Repolarization abnormality, prob rate related...ST dep, T neg, tachycardia
[2024-01-12 08:53] LABS: Abs Immature Grans 0.05 10^3/uL (0.0-0.06); Absolute Basophil Count 0.05 10^3/uL (0.0-0.2); Absolute Eosinophil Count 0.78 10^3/uL (0.0-0.7); Absolute Lymphocyte Count 1.46 10^3/uL (1.2-3.4); Basophils % 0.5; Eosinophils % 7.2; HCT 43.8 % (40.0-50.0); HGB 14.7 g/dL (13.5-17.5); Immature Grans % 0.5; Lymphocytes % 13.4; MCH 31.9 pg (27.0-33.0); MCHC 33.6 % (32.0-36.0); MCV 95 fL (80-95); MPV 10.6 fL (8.0-11.0); Monocytes % 6.4; Platelet Count 370 10^3/uL (130-400); RBC 4.61 10^6/uL (4.36-5.78); RDW 13.1 % (11.8-14.1); RDW-SD 45.5 fL
[2024-01-12 08:54] LABS: Absolute Neutrophil Count 7.85 10^3/uL (1.2-6.7)
--- NOTE | 2024-01-12 08:55 | ED.GENADUL_ITS ---
HPI General Mode of arrival: ambulatory . Date/Time Provider Initiated Documentation: 01/12/24 08:35 . Limitations to Documentation: no limitations . Information obtained by: patient . HPI Narrative: 78-year-old male presents with chief complaint of shortness of breath. Patient notes he has been short of breath for the past couple days. Patient states he had influenza about 2 weeks ago, fell and broke his left rib he has had rib pain and persistent cough since that time. Cough is productive. Patient states he has intermittent episodes of severe shortness of breath over the past 2 days. No associated leg swelling. No fever. He has no chest pain other than localized rib pain from his fracture. Related Data Home Medications Medication Instructions Recorded Confirmed timolol maleate 0.5 % eye gel 1 drp ophthalmic (eye) BID 05/08/23 01/12/24 forming solution clotrimazole 1 % topical cream 1 applic topical BID #45 grams 06/27/23 01/12/24 clopidogrel 75 mg tablet 75 mg PO DAILY 07/17/23 01/12/24 atorvastatin 80 mg tablet 80 mg PO DAILY 01/01/24 01/12/24 lisinopril 10 mg tablet 10 mg PO DAILY #90 tabs 01/08/24 01/12/24 Previous Rx's Medication Instructions Recorded clotrimazole 1 % topical cream 1 applic topical BID #45 grams 06/27/23 lisinopril 10 mg tablet 10 mg PO DAILY #90 tabs 01/08/24 Allergies Allergy/AdvReac Type Severity Reaction Status Date / Time venom-honey bee Allergy Severe HIVES Verified 01/12/24 11:07 [bee venom (honey bee)] TACHYCARDIA Penicillins Allergy Intermediate HIVES Verified 01/12/24 11:07 levetiracetam [From [facility]] AdvReac Severe leukopenia Verified 01/12/24 11:07 prednisone AdvReac Severe rectal Verified 01/12/24 11:07 bleeding and diarrhea aspirin AdvReac Intermediate Nosebleeds Verified 01/12/24 11:07 ceftriaxone AdvReac Intermediate Leukopenia Verified 01/12/24 11:07 simvastatin AdvReac Intermediate LEG PAIN Verified 01/12/24 11:07 DR MCLEOD SHRIMP Allergy Intermediate HIVES , Uncoded 01/12/24 11:07 NAUSEA General Stated Complaint: RespSymp PALOMA: 3 Review of Systems All systems reviewed & are unremarkable except as noted in HPI and below Constitutional Constitutional: Denies fever(s) Cardiovascular Cardiovascular: Reports as per HPI and Reports dyspnea Respiratory Respiratory: Reports cough and Reports dyspnea Gastrointestinal Gastrointestinal: Denies abdominal pain Exam Const General: cooperative and no acute distress HENMT Mouth: moist mucous membranes Eyes Conjunctivae: normal conjunctivae Sclera: normal sclerae Neck Neck: trachea midline and supple Resp Effort & Inspection: normal respiratory effort Auscultation: clear to auscultation bilaterally, no rales, no rhonchi and no wheezes Cardio Rate: tachycardic Rhythm: abnormal rhythm irregularly irregular GI Palpation: soft, not firm, no guarding, no masses, not rigid and nontender Skin General skin exam: ecchymosis (left flank) Neuro General: patient alert, patient awake, patient oriented x3 and tone normal Extrem General: no calf tenderness and no edema Psych Appearance: grossly normal Mental Status: mental status grossly normal Course Vital Signs Vital signs: Vital Signs Temperature 36.0 C L 01/12/24 08:24 Pulse 71 01/12/24 08:24 Respiratory Rate 18 01/12/24 08:24 Blood Pressure 157/101 H 01/12/24 08:24 Pulse Oximetry 99 01/12/24 08:24 Temperature 36.0 C L 01/12/24 08:45 Temperature Source Temporal Artery Scan 01/12/24 08:45 Pulse 71 01/12/24 08:45 Respiratory Rate 18 01/12/24 08:45 Blood Pressure 157/101 H 01/12/24 08:45 Blood Pressure Position Sitting 01/12/24 08:45 Pulse Oximetry 99 01/12/24 08:45 Oxygen Delivery Method Room Air 01/12/24 08:45 Oxygen Flow Rate 0 01/12/24 08:45 Lab/Test Results Lab/Test Results: Laboratory Tests Range/Units 01/12/24 08:42 WBC (4.4-10.8) 10^3/uL 10.90 H RBC (4.36-5.78) 10^6/uL 4.61 Hgb (13.5-17.5) g/dL 14.7 Hct (40.0-50.0) % 43.8 MCV (80-95) fL 95 MCH (27.0-33.0) pg 31.9 MCHC (32.0-36.0) % 33.6 RDW (11.8-14.1) % 13.1 Plt Count (130-400) 10^3/uL 370 MPV (8.0-11.0) fL 10.6 Immature Gran % 0.5 Neutrophils % 72.0 Lymphocytes % 13.4 Monocytes % 6.4 Eosinophils % 7.2 Basophils % 0.5 Nucleated RBC % (0.0-0.3) % 0.0 Absolute Neutrophils (1.2-6.7) 10^3/uL 7.85 H Absolute Lymphocytes (1.2-3.4) 10^3/uL 1.46 Absolute Monocytes (0.1-0.8) 10^3/uL 0.70 Absolute Eosinophils (0.0-0.7) 10^3/uL 0.78 H Absolute Basophils (0.0-0.2) 10^3/uL 0.05 Medical Decision Making 900 --78-year-old male with multiple medical problems including recent history of influenza, fall with rib fracture about 10 days ago, here with intermittent shortness of breath over the past 2 days, persistent cough. Concern for pneumonia superimposed on rib fracture versus COVID versus other. Plan to obtain chest x-ray. Patient is tachycardic and in atrial fibrillation. EKG was reviewed and interp reted by me: Please see report, A-fib with RVR 154. Patient has not taken his prescribed medications including diltiazem today. I will give him his a.m. dose. Initial labs reviewed and CBC concerning for mild leukocytosis. 1100 --Labs reviewed: Mild hypomagnesemia noted. Hypokalemia noted. Will give supplements. Patient remains positive for influenza. Chest x-ray was reviewed and interpreted by radiology: Posterior infiltrate versus atelectasis. Patient reassessed remains tachycardic in atrial fibrillation with heart rate in the 120s to 130s. Consider pulmonary embolism versus pneumonia. I will obtain CT of the chest. I will initiate treatment with Levaquin. I will give IV fluid bolus. Lactate and blood cultures pending. Patient has low potassium and magnesium. I will give potassium and magnesium oral supplementation. 1305 --CT of the chest was interpreted by radiology: No evidence of pulmonary embolism. Small bilateral pleural effusions. No evidence of pneumonia. Concern for acute CHF exacerbation in the setting of A-fib with RVR. I will initiate treatment with diltiazem IV bolus and infusion. 1414 --patient reassessed and heart rate improved to now 80s to 90s. Blood pressure did decrease to 100/75. I have titrated down diltiazem infusion. BNP is elevated. It has been elevated in the past. Prior echocardiogram from about a year ago shows EF of 55-60. Plan to hospitalize for further diagnostics and treatment. I spoke with the hospitalist on-call, Dr. Harrison, discussed ED presentation course, he will admit the patient. Lab Data Lab results reviewed: Yes I reviewed the patient's lab results. Labs: 01/12/24 12:00 Blood Blood Culture - Pending 01/12/24 11:32 Blood Blood Culture - Pending Laboratory Tests Range/Units 01/12/24 01/12/24 01/12/24 08:30 08:42 11:32 WBC (4.4-10.8) 10^3/uL 10.90 H RBC (4.36-5.78) 10^6/uL 4.61 Hgb (13.5-17.5) g/dL 14.7 Hct (40.0-50.0) % 43.8 MCV (80-95) fL 95 MCH (27.0-33.0) pg 31.9 MCHC (32.0-36.0) % 33.6 RDW (11.8-14.1) % 13.1 Plt Count (130-400) 10^3/uL 370 MPV (8.0-11.0) fL 10.6 Immature Gran % 0.5 Neutrophils % 72.0 Lymphocytes % 13.4 Monocytes % 6.4 Eosinophils % 7.2 Basophils % 0.5 Nucleated RBC % (0.0-0.3) % 0.0 Absolute Neutrophils (1.2-6.7) 10^3/uL 7.85 H Absolute Lymphocytes (1.2-3.4) 10^3/uL 1.46 Absolute Monocytes (0.1-0.8) 10^3/uL 0.70 Absolute Eosinophils (0.0-0.7) 10^3/uL 0.78 H Absolute Basophils (0.0-0.2) 10^3/uL 0.05 VBG Lactate (0.9-1.7) MMOL/l 1.9 H Sodium (136-145) mmol/L 141 Potassium (3.5-5.1) mmol/L 3.2 L Chloride (98-107) mmol/L 102 Carbon Dioxide (21.0-32.0) mmol/L 27.8 Anion Gap (3-11) mmol/L 11.2 H BUN (7-18) mg/dL 17 Creatinine (0.70-1.30) mg/dL 0.9 Est GFR (CKD-EPI 2020) (mL/min/1.73m2) 87.42 Glucose (74-106) mg/dL 148 H Calcium (8.5-10.1) mg/dL 10.0 Magnesium (1.8-2.4) mg/dL 1.7 L Total Bilirubin (0.2-1.0) mg/dL 1.6 H AST (15-37) U/L 15 ALT (16-63) U/L 20 Alkaline Phosphatase (46-116) U/L 129 H Troponin I (< or =60) ng/L < 50 Total Protein (6.4-8.2) g/dL 8.3 H Albumin (3.4-5.0) g/dL 3.6 TSH (0.36-3.74) uIU/mL 4.99 H Free T4 (0.76-1.46) ng/dL 1.19 COVID-19 Source Nasopharynx SARS-CoV-2 (PCR) (Negative) Negative Influenza Type A (PCR) (Negative) Positive A Influenza Type B (PCR) (Negative) Negative RSV (PCR) (Negative) Negative Range/Units 01/12/24 12:10 WBC (4.4-10.8) 10^3/uL RBC (4.36-5.78) 10^6/uL Hgb (13.5-17.5) g/dL Hct (40.0-50.0) % MCV (80-95) fL MCH (27.0-33.0) pg MCHC (32.0-36.0) % RDW (11.8-14.1) % Plt Count (130-400) 10^3/uL MPV (8.0-11.0) fL Immature Gran % Neutrophils % Lymphocytes % Monocytes % Eosinophils % Basophils % Nucleated RBC % (0.0-0.3) % Absolute Neutrophils (1.2-6.7) 10^3/uL Absolute Lymphocytes (1.2-3.4) 10^3/uL Absolute Monocytes (0.1-0.8) 10^3/uL Absolute Eosinophils (0.0-0.7) 10^3/uL Absolute Basophils (0.0-0.2) 10^3/uL VBG Lactate (0.9-1.7) MMOL/l Sodium (136-145) mmol/L Potassium (3.5-5.1) mmol/L Chloride (98-107) mmol/L Carbon Dioxide (21.0-32.0) mmol/L Anion Gap (3-11) mmol/L BUN (7-18) mg/dL Creatinine (0.70-1.30) mg/dL Est GFR (CKD-EPI 2020) (mL/min/1.73m2) Glucose (74-106) mg/dL Calcium (8.5-10.1) mg/dL Magnesium (1.8-2.4) mg/dL Total Bilirubin (0.2-1.0) mg/dL AST (15-37) U/L ALT (16-63) U/L Alkaline Phosphatase (46-116) U/L Troponin I (< or =60) ng/L < 50 Total Protein (6.4-8.2) g/dL Albumin (3.4-5.0) g/dL TSH (0.36-3.74) uIU/mL Free T4 (0.76-1.46) ng/dL COVID-19 Source SARS-CoV-2 (PCR) (Negative) Influenza Type A (PCR) (Negative) Influenza Type B (PCR) (Negative) RSV (PCR) (Negative) Quality:SDOH Health Related Social Needs: No Data to Display Critical Care Time Critical Care Time Critical Care Time: Yes Total Critical Care Time: 50 Attestation: I spent greater 50 minutes addressing this patient's immediate life threats. Please see MDM section of note. This time was spent engaged in work directly r elated to the patient's care, exclusive of separate procedures, and failure to initiate these interventions would have likely resulted in clinically significant or life threatening deterioration in the patient's condition. PFSH All Active Problems (Updated 01/12/24 @ 14:17 by Dean Guerrero MD) Atrial fibrillation with RVR (Acute) CHF (congestive heart failure) (Chronic) Influenza A (Acute) Left rib fracture (Acute) Atherosclerosis of aorta (Chronic) Enlarged prostate (Acute) Orthostatic hypotension (Acute) Atrial fibrillation with RVR (Acute) Low back pain (Acute) Atrial fibrillation (Chronic) History of left-sided carotid endarterectomy (Acute) 07/16/2023 at [facility] [place] Peripheral artery disease (Acute) 08/15/23 F/u Vascular Non-healing skin lesion (Acute) Hyperlipidemia, unspecified (Acute) Acute ischemic stroke (Acute 05/18/23) Occlusion of right vertebral artery (Acute) Carotid stenosis, bilateral (Chronic) I65.21 - Right-sided extracranial carotid artery stenosis Macrocytosis without anemia (Acute) Primary open angle glaucoma (POAG) of right eye, mild stage (Chronic) Cough (Acute) Tricuspid regurgitation (Acute) Beat, premature ventricular (Acute ~08/2022) 09/11/22 Cardiology 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 (Acute) Syncope (Chronic) Prolonged QT interval (Acute) Atrial tachycardia determined by electrocardiography (Acute) Internal hemorrhoids (Acute) Blood glucose abnormal (Acute 11/03/14) Trigger middle finger of right hand (Acute 04/25/16) Abdominal aortic aneurysm (AAA) 3.0 cm to 5.5 cm in diameter in male (Chronic) Found in October 2018, needs to be rechecked every 3 years Pure hypercholesterolemia (Chronic 01/31/12) goal LDL<70 Metabolic syndrome X (Chronic 02/15/13) goal 215# 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 s/p stenting x 5 2010 or 2011 at [facility] b. presenting symptom was primarily fatigue Hypertension (Chronic) Benign prostatic hypertrophy (Chronic) Atrial fibrillation (Chronic) I48.0 Paroxysmal atrial fibrillation 10/09/20 [facility] [place] Cardiology Medical History Fall Orthostatic hypotension Elevated troponin I level Ischemic stroke Hx of colonic polyps H/O: urinary stone Surgical History S/P ablation of atrial fibrillation (10/2018) steriotactic brain bx (01/27/15) [facility] [place] bx brain abscess R small trigger finger release (05/28/16) [place] Family History Mother , HF at age 89. Heart disease Father , stroke HBP at age 90. Essential hypertension Brother , heart at age 82. No problems noted. Brother No problems noted. 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 Pets and animals: No Sexually active: Yes Do you think of yourself as: straight/heterosexual Current gender identity: male What is your relationship status?: How often do you talk on the phone with friends or family?: three or more times per week How often do you get together with friends or relatives?: three or more times per week Do you belong to any clubs or organized social groups?: yes Panel score (0-1 are the most socially isolated patients): 3 What type of physical activity do you participate in: none Cassidy/Mandaeism: None Special cassidy needs: No Seatbelt use: always Drive intox or ride w/intox hi low truck driver: No Working smoke detector in home: Yes Fire extinguisher in home: Yes Carbon monox detector in home: Yes Do you feel safe at home: Yes Do you feel safe in your relationship?: Yes Discharge Plan Disposition Patient Disposition: Admit to [facility] Condition: Critical Discharge Details Chief Complaint: RespSymp Clinical Impression: Influenza A, CHF (congestive heart failure), Atrial fibrillation with RVR Primary Care Provider: Camacho Barrera ED Provider: Dean Guerrero Home Meds and New Rx's Prescriptions: No Action lisinopril 10 mg tablet 10 mg PO DAILY Qty: 90 3RF timolol maleate 0.5 % gel forming solution 1 drp ophthalmic (eye) BID clotrimazole 1 % cream 1 applic topical BID Qty: 45 3RF atorvastatin 80 mg tablet 80 mg PO DAILY Patient Comments: TAKE ONE TABLET BY MOUTH EVERY EVENING clopidogrel 75 mg tablet 75 mg PO DAILY Hold Instructions: per [facility] [place]
[2024-01-12 09:21] LABS: ALT 20 U/L (16-63); AST 15 U/L (15-37); Albumin 3.6 g/dL (3.4-5.0); Alkaline Phosphatase 129 U/L (46-116); Anion Gap 11.2 mmol/L (3-11); BUN 17 mg/dL (7-18); Bilirubin, Total 1.6 mg/dL (0.2-1.0); CO2 27.8 mmol/L (21.0-32.0); CREATININE 0.9 mg/dL (0.70-1.30); Chloride 102 mmol/L (98-107); Estimated GFR 87.42 (mL/min/1.73m2); Glucose 148 mg/dL (74-106); Magnesium 1.7 mg/dL (1.8-2.4); Potassium 3.2 mmol/L (3.5-5.1); Sodium 141 mmol/L (136-145); TSH (W/Ref FT4) 4.99 uIU/mL (0.36-3.74); Total Protein 8.3 g/dL (6.4-8.2); Troponin I < 50 ng/L (< or =60)
--- NOTE | 2024-01-12 09:26 | DI.RAD_ITS ---
Exam(s) XR CHEST 2V PA LATERAL EXAM: XR CHEST 2V PA LATERAL CLINICAL HISTORY: productive cough TECHNIQUE: 2D digital imaging was performed. COMPARISON: CR,XR XR CHEST 2V PA LATERAL from 05/18/[address] CHEST/ABD/PEL WO from 01/01/2024 FINDINGS: HEART: Enlarged. Aorta: Not dilated. Calcified. PULMONARY VASCULATURE: Normal. LUNGS: Question of increased densities seen posteriorly on the lateral view which could represent inf iltrate versus atelectasis. PLEURAL SPACE: No pleural effusion or pneumothorax. BONE:Unremarkable for age. Soft tissues: Unremarkable. IMPRESSION: Posterior infiltrate versus atelectasis. DATA REPOSITORY: RADIATION DOSE DELIVERED:
[2024-01-12 09:40] LABS: COVID-19 PCR Negative (Negative); Influenza A PCR Positive (Negative); Influenza B PCR Negative (Negative); RSV PCR Negative (Negative); Source Nasopharynx
[2024-01-12 09:48] LABS: FREE T4 1.19 ng/dL (0.76-1.46)
[2024-01-12] MEDS: dilTIAZem CD 120 MG CAPCR 240 MG PO (10:09)
--- NOTE | 2024-01-12 11:00 | DI.CT_ITS ---
Exam(s) CT CHEST PE CTA EXAM: CT CHEST PE CTA CLINICAL HISTORY: ? infiltrate on cxr, shortness of breath, tachycar. TECHNIQUE: Imaging Protocol: Axial CT angiography was performed with multi-slice acquisition and mu lti-planar reconstructions as well as axial, coronal and sagittal MIP reconstructions. CONTRAST MATERIAL: Intravenous: Omnipaque 350 Contrast volume:100 ml COMPARISON: CT CT CHEST/ABD/PEL WO from 01/01/2024 CR XR CHEST 2V PA LATERAL from 01/12/2024 FINDINGS: Pulmonary Arteries: No evidence of filling defect to suggest pulmonary emboli. Tracheobronchial tree: No mucous plugging. Mediastinum and Sonia: No dominant adenopathy or fluid collection. Pulmonary parenchyma: Minimal basilar atelectasis. No consolidation or dominant measurable mass. Pleura: Small bilateral pleural effusions. No pneumothorax. Heart: The heart is moderate dilated particularly left atrium.. Severe coronary artery calcification s are seen. Mitral annular calcifications. Aorta: Thoracic aorta non-dilated. No dissection. Calcified. Upper abdomen: No acute findings. Bones: Unremarkable for age. Tubes, Catheters, and Lines: None Soft tissues: Unremarkable. IMPRESSION: No evidence of pulmonary embolism. Small bilateral pleural effusions. No evidence of pneumonia. RADIATION DOSE DELIVERED: 489.29mGy.cm Total DLP DATA REPOSITORY: All CT scans at this facility are submitted to the National Radiology Data Registry (NRDR) Dose Index Registry (DIR) with the [employer] (ACR). RADIATION OPTIMIZATION: All CT scans at this facility use at least one of these dose optimization te chniques: automated exposure control; mA and/or kV adjustment per patient size (includes targeted exa ms where dose is matched to clinical indication); or iterative reconstruction.
[2024-01-12] MEDS: Potassium Chloride 20 MEQ TABCR PO (11:23)
[2024-01-12] MEDS: Magnesium Oxide 400 MG TAB 800 MG PO (11:23)
[2024-01-12] MEDS: Lactated Ringers 1,000 ML 1000 ML IV (11:29)
[2024-01-12 11:41] LABS: Lactate 1.9 MMOL/l (0.9-1.7)
[2024-01-12] MEDS: Normal Saline - Diluent 50 ML VIAL IJ (12:22)
[2024-01-12] MEDS: Omnipaque 350 MG/ML 100 ML BTL IJ (12:23)
[2024-01-12] MEDS: levoFLOXacin 750 MG/150 ML BAG 100 MG IVPB (12:46)
[2024-01-12 12:54] LABS: Troponin I < 50 ng/L (< or =60)
[2024-01-12] MEDS: dilTIAZem 25 MG/5 ML VIAL 20 MG IVP (13:35)
[2024-01-12 13:38] LABS: NT-proBNP 2229 pg/mL (<300)
[2024-01-12] MEDS: dilTIAZem 125 MG in Normal Saline 100 ML IV (13:39)
[2024-01-12] MEDS: dilTIAZem 30 MG TAB 60 MG PO (16:48)
--- NOTE | 2024-01-12 17:09 | HPE_ITS ---
Date of service: 01/12/24 Time of Service: 17:09 Assessment and Plan Assessment and plan (1) Atrial fibrillation with RVR: Status: Acute Assessment and plan: continue diltiazem drip; resume diltiazem CD w/ adjustment in his dose, may need to hold lisinopril which Dr. Barrera just resumed in order to have adequate BP for rate controlling meds. Patient needs cardiology follow up to discuss Watchman device and repeat ablation. He apparently has been intolerant of DOAC d/t recurrent epistaxis. Critical care time spent interviewing and examining the patient, reviewing studies, discussing case with patient's nurse and consulting physicians was 60 minutes (2) CHF (congestive heart failure): Status: Chronic Assessment and plan: last echocardiogram was done 01/14/23 and demonstrated the following: Conclusion Normal left ventricular wall thickness and chamber size. Estimated ejection fraction is 55 to 60%. There were no segmental wall motion abnormalities Grossly normal right ventricular size and function Both atria are mildly dilated Aortic valve is sclerotic with trace regurgitation Mitral annular calcification, mild to moderate mitral regurgitation Normal tricuspid valve with moderate to severe regurgitation. Estimated right ventricular systolic pressure is 39 mmHg Dilated ascending aorta Patient was in atrial fibrillation with an uncontrolled rate throughout the study with [id number] variation His chest CTA showed small bilateral pleural effusions, his bedside US shows bilateral B lines primarily in the lower to mid lung zones, echo did not show any wall motion abnormalities but his IVC is dilated at 2.6 and w/ less than 50% inspiratory collapse suggesting he has elevated RAP. I have ordered some iv lasix, particularly in light of his receiving 1 liter of LR in the ED. 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 (5) Hypertension: Status: Chronic Assessment and plan: will hold his lisinopril until I see how his BP responds to the diltiazem History of Present Illness History of Present Illness Chief Complaint: PND, dyspnea Narrative: 78-year-old male with a history of chronic atrial fibrillation with 2 previous DCC cardioversion and 1 previous cardiac ablation who was recently hospitalized at [facility] from 01/01/2024 to 01/03/2024 after sustaining a fall and a left sided rib fracture left anterior ninth rib. Fall was felt to be vasovagal syncope from coughing. He was found to be positive for influenza. His metoprolol was discontinued at that time because he had had side effects of severe diarrhea while on metoprolol. He was started on diltiazem CD and sent home on a dose of 240 mg daily with discontinuation of his digoxin and his metoprolol. His lisinopril was held because of orthostatic hypotension but when he saw his primary care provider Dr. Camacho Barrera on 01/08/2024 and blood pressure was elevated at 146/70 and his lisinopril was reinstituted [address] Barrera referred him back to cardiology to be evaluated for Watchman device. He has a follow-up with cardiology in January of this year. Since that time patient developed episode of orthopnea and PND last night associated with rapid atrial fibrillation. He also has a nonproductive cough. He is afebrile has no rigors. Initially the ER doctor thought he might have pneumonia and gave him a dose of Levaquin he also gave him a bolus of IV fluids. Subsequently he was found to be in acute congestive heart failure with an elevated proBNP of 2200 which is up from his previous baseline level of 520 from last July. Serial troponins been negative x 2 sets. Patient denies any chest pain or pressure and really has had no palpitations but had the PND and orthopnea last night. No peripheral edema. As a said the ER doctor gave him a bolus of LR x 2000 mL before discovering some heart failure. Patient underwent imaging of his chest including a chest CT and a chest x-ray. Chest CT shows no pulmonary embolism but he has small bilateral pleural effusions with no evidence for pneumonia. Chest x-ray suggested left posterior infiltrate versus atelectasis. Patient was treated in the emergency department with a bolus of diltiazem 20 mg IV push he was given his morning dose of Cardizem CD 240 mg which she had missed. He was started on diltiazem drip and is admitted to the intensive care unit for further titration of diltiazem and control of his atrial fibrillation rate. Note patient is not chronically anticoagulated due to recurrent nosebleeds while on D.O.A.C. He does take clopidogrel 75 mg daily. Note, patient states that he confused his diltiazem and his blood pressure meds and he thought he was to stop the diltiazem and therefore has not been taking this since he saw Dr. Barrera. This is the likey reason he went back into [facility]. Review of Systems Constitutional Constitutional: Denies chills and Denies fever(s) Eyes Eyes: Reports system reviewed and no additional complaints, except as documented ENT Ears, Nose, Mouth, and Throat: Reports system reviewed and no additional complaints, except as documented Cardiovascular Cardiovascular: Reports as per HPI, Denies chest pain, Reports irregular heart rhythm, Reports dyspnea, Denies dyspnea on exertion (Prior to last night he had no exertional dyspnea), Reports orthopnea and Reports paroxysmal nocturnal dyspnea Respiratory Respiratory: Reports as per HPI, Reports dyspnea and Denies dyspnea on exertion (Prior to last night he had no exertional dyspnea) Gastrointestinal Gastrointestinal: Reports system reviewed and no additional complaints, except as documented Genitourinary Genitourinary: Reports system reviewed and no additional complaints, except as documented Musculoskeletal Musculoskeletal: Reports other (Left-sided chest wall pain) Integumentary/Breasts Skin/Breast: Reports other (Left chest wall bruising) Neurologic Neurologic: Reports system reviewed and no additional complaints, except as documented Psychiatric Psychiatric: Reports system reviewed and no additional complaints, except as documented PFSH All Active Problems Atrial fibrillation with RVR (Acute) CHF (congestive heart failure) (Chronic) Influenza A (Acute) Left rib fracture (Acute) Atherosclerosis of aorta (Chronic) Enlarged prostate (Acute) Orthostatic hypotension (Acute) Atrial fibrillation with RVR (Acute) Low back pain (Acute) Atrial fibrillation (Chronic) History of left-sided carotid endarterectomy (Acute) 07/16/2023 at [facility] [place] Peripheral artery disease (Acute) 08/15/23 F/u Vascular Non-healing skin lesion (Acute) Hyperlipidemia, unspecified (Acute) Acute ischemic stroke (Acute 05/18/23) Occlusion of right vertebral artery (Acute) Carotid stenosis, bilateral (Chronic) I65.21 - Right-sided extracranial carotid artery stenosis Macrocytosis without anemia (Acute) Primary open angle glaucoma (POAG) of right eye, mild stage (Chronic) Cough (Acute) Tricuspid regurgitation (Acute) Beat, premature ventricular (Acute ~08/2022) 09/11/22 Cardiology 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 (Acute) Syncope (Chronic) Prolonged QT interval (Acute) Atrial tachycardia determined by electrocardiography (Acute) Internal hemorrhoids (Acute) Blood glucose abnormal (Acute 11/03/14) Trigger middle finger of right hand (Acute 04/25/16) Abdominal aortic aneurysm (AAA) 3.0 cm to 5.5 cm in diameter in male (Chronic) Found in October 2018, needs to be rechecked every 3 years Pure hypercholesterolemia (Chronic 01/31/12) goal LDL<70 Metabolic syndrome X (Chronic 02/15/13) goal 215# 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 s/p stenting x 5 2010 or 2011 at [facility] b. presenting symptom was primarily fatigue Hypertension (Chronic) Benign prostatic hypertrophy (Chronic) Atrial fibrillation (Chronic) I48.0 Paroxysmal atrial fibrillation 10/09/20 [facility] [place] [facility] Cardiology Medical History Fall Orthostatic hypotension Elevated troponin I level Ischemic stroke Hx of colonic polyps H/O: urinary stone Surgical History S/P ablation of atrial fibrillation (10/2018) steriotactic brain bx (01/27/15) [facility] [place] [facility] bx brain abscess R small trigger finger release (05/28/16) [place] Family History Mother , HF at age 89. Heart disease Father , stroke HBP at age 90. Essential hypertension Brother , heart at age 82. No problems noted. Brother No problems noted. 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 Pets and animals: No Sexually active: Yes Do you think of yourself as: straight/heterosexual Current gender identity: male What is your relationship status?: How often do you talk on the phone with friends or family?: three or more times per week How often do you get together with friends or relatives?: three or more times per week Do you belong to any clubs or organized social groups?: yes Panel score (0-1 are the most socially isolated patients): 3 What type of physical activity do you participate in: none Cassidy/Protestant: None Special cassidy needs: No Seatbelt use: always Drive intox or ride w/intox personal driver: No Working smoke detector in home: Yes Fire extinguisher in home: Yes Carbon monox detector in home: Yes Do you feel safe at home: Yes Do you feel safe in your relationship?: Yes Meds Allergies and Home Medications Allergies Allergy/AdvReac Type Severity Reaction Status Date / Time venom-honey bee Allergy Severe HIVES Verified 01/12/24 11:07 [bee venom (honey bee)] TACHYCARDIA Penicillins Allergy Intermediate HIVES Verified 01/12/24 11:07 levetiracetam [From [facility]] AdvReac Severe leukopenia Verified 01/12/24 11:07 prednisone AdvReac Severe rectal Verified 01/12/24 11:07 bleeding and diarrhea aspirin AdvReac Intermediate Nosebleeds Verified 01/12/24 11:07 ceftriaxone AdvReac Intermediate Leukopenia Verified 01/12/24 11:07 simvastatin AdvReac Intermediate LEG PAIN Verified 01/12/24 11:07 DR MCLEOD SHRIMP Allergy Intermediate HIVES , Uncoded 01/12/24 11:07 NAUSEA Home Medications Medication Instructions Recorded Confirmed Type timolol maleate 0.5 % eye gel 1 drp ophthalmic (eye) BID 05/08/23 01/12/24 History forming solution clotrimazole 1 % topical cream 1 applic topical BID #45 grams 06/27/23 01/12/24 Rx clopidogrel 75 mg tablet 75 mg PO DAILY 07/17/23 01/12/24 History atorvastatin 80 mg tablet 80 mg PO DAILY 01/01/24 01/12/24 History lisinopril 10 mg tablet 10 mg PO DAILY #90 tabs 01/08/24 01/12/24 Rx digoxin 125 mcg (0.125 mg) tablet 0.125 mg PO DAILY 01/12/24 01/12/24 History diltiazem HCl 240 mg 240 mg PO QAM 01/12/24 01/12/24 History capsule,extended release 24 hr metoprolol tartrate 25 mg tablet 25 mg PO BID 01/12/24 01/12/24 History Exam Narrative Exam Narrative: Elderly male alert and orient x 3 with a nonproductive cough HEENT is unremarkable Neck is supple no overt JVD no adenopathy no thyromegaly Lungs with bibasilar rales no rhonchi or wheezes Heart is irregular irregular slightly tachycardic no appreciable murmur rub Abdomen soft nontender nondistended normal bowel sounds no organomegaly or bruits Lower extremities no pitting edema no peripheral cyanosis normal pedal pulses Neuro exam grossly intact no focal motor or sensory deficits no focal cranial nerve deficits. Results Imaging Chest x-ray: report reviewed (Posterior infiltrate versus atelectasis) CT scan - chest: report reviewed (No evidence of pulmonary embolism. Small bilateral pleural effusions. No evidence of pneumonia) Labs 01/12/24 08:42 01/12/24 08:42 Labs: Laboratory Results - last 24 hr 01/12/24 01/12/24 01/12/24 08:30 08:42 11:32 WBC 10.90 H RBC 4.61 Hgb 14.7 Hct 43.8 MCV 95 MCH 31.9 MCHC 33.6 RDW 13.1 Plt Count 370 MPV 10.6 Immature Gran % 0.5 Neutrophils % 72.0 Lymphocytes % 13.4 Monocytes % 6.4 Eosinophils % 7.2 Basophils % 0.5 Nucleated RBC % 0.0 Absolute Neutrophils 7.85 H Absolute Lymphocytes 1.46 Absolute Monocytes 0.70 Absolute Eosinophils 0.78 H Absolute Basophils 0.05 VBG Lactate 1.9 H Sodium 141 Potassium 3.2 L Chloride 102 Carbon Dioxide 27.8 Anion Gap 11.2 H BUN 17 Creatinine 0.9 Est GFR (CKD-EPI 2020) 87.42 Glucose 148 H Calcium 10.0 Magnesium 1.7 L Total Bilirubin 1.6 H AST 15 ALT 20 Alkaline Phosphatase 129 H Troponin I < 50 NT-Pro-B Natriuret Pep 2229 H Total Protein 8.3 H Albumin 3.6 TSH 4.99 H Free T4 1.19 COVID-19 Source Nasopharynx SARS-CoV-2 (PCR) Negative Influenza Type A (PCR) Positive A Influenza Type B (PCR) Negative RSV (PCR) Negative 01/12/24 12:10 WBC RBC Hgb Hct MCV MCH MCHC RDW Plt Count MPV Immature Gran % Neutrophils % Lymphocytes % Monocytes % Eosinophils % Basophils % Nucleated RBC % Absolute Neutrophils Absolute Lymphocytes Absolute Monocytes Absolute Eosinophils Absolute Basophils VBG Lactate Sodium Potassium Chloride Carbon Dioxide Anion Gap BUN Creatinine Est GFR (CKD-EPI 2020) Glucose Calcium Magnesium Total Bilirubin AST ALT Alkaline Phosphatase Troponin I < 50 NT-Pro-B Natriuret Pep Total Protein Albumin TSH Free T4 COVID-19 Source SARS-CoV-2 (PCR) Influenza Type A (PCR) Influenza Type B (PCR) RSV (PCR) Last Vital Signs Temp 36.8 C 01/12/24 15:55 Pulse 70 01/12/24 16:46 Resp 21 01/12/24 16:46 BP 123/93 H 01/12/24 16:46 Pulse Ox 91 L 01/12/24 16:46 PAWSS Have you Been Recently Intoxicated or Drunk Within the Last 30 days?: No Have you Ever Experienced Previous Episodes of Alcohol Withdrawal?: No Have you ever Experienced Withdrawal Seizures?: No Have you ever Experienced Delirium Tremens(DT)s?: No Have you ever undergone Alcohol Rehabilitation Treatment (i.e, inpt ot outpatient treatment programs)?: No Have you ever Experienced Blackouts?: No Have you ever Combined Alcohol with other Downers within the last 90 days?: No Have you ever Combined Alcohol with any other Substance of Abuse during the last 90 days?: No Positive Blood Alcohol level on Presentation? [PCS.BAL]: No Evidence of Increased Autonomic Activity (i.e. HR>120, tremor, sweating, agitation, nausea)?: No Result: 0 Time Spent Time spent with Patient: 55-74 minutes Time was spent: preparing to see the patient(eg.review tests), obtaining and/or reviewing separately otained hiistory, ordering medications,tests, procedures, referring, communicating with other health patient care assistant (Dr. Guerrero, ED provider), indepentently interpreting results, counseling the patient and care coordination
[2024-01-12 18:15] LABS: Troponin I < 50 ng/L (< or =60)
[2024-01-12] MEDS: Enoxaparin 40 MG/0.4 ML SYR SC (18:27)
[2024-01-12] MEDS: Furosemide 20 MG/2 ML VIAL IVP (19:04)
[2024-01-12] MEDS: Atorvastatin 40 MG TAB 80 MG PO (21:19)
[2024-01-12] MEDS: Timolol 0.5% 5 ML BTL OP (21:26)
[2024-01-12] MEDS: dilTIAZem CD 120 MG CAPCR PO (21:30)
[2024-01-13] VITALS (30 sets, daily range): BP systolic 101–139; BP diastolic 59–105; PULSE 53–139; RESP 11–32; TEMP 36.3–36.5; O2SAT 86–98
[2024-01-13 05:53] LABS: Abs Immature Grans 0.02 10^3/uL (0.0-0.06); Absolute Basophil Count 0.04 10^3/uL (0.0-0.2); Absolute Eosinophil Count 0.64 10^3/uL (0.0-0.7); Absolute Lymphocyte Count 1.45 10^3/uL (1.2-3.4); Absolute Monocyte Count 0.76 10^3/uL (0.1-0.8); Absolute Neutrophil Count 5.32 10^3/uL (1.2-6.7); Basophils % 0.5; Eosinophils % 7.8; HCT 35.4 % (40.0-50.0); HGB 12.2 g/dL (13.5-17.5); Immature Grans % 0.2; Lymphocytes % 17.6; MCH 32.7 pg (27.0-33.0); MCHC 34.5 % (32.0-36.0); MCV 95 fL (80-95); MPV 10.6 fL (8.0-11.0); Monocytes % 9.2; Neutrophils % 64.7; Platelet Count 308 10^3/uL (130-400); RBC 3.73 10^6/uL (4.36-5.78); RDW 13.2 % (11.8-14.1); RDW-SD 45.6 fL; WBC 8.23 10^3/uL (4.4-10.8)
[2024-01-13 06:03] LABS: Anion Gap 9.4 mmol/L (3-11); BUN 15 mg/dL (7-18); CO2 27.6 mmol/L (21.0-32.0); CREATININE 0.8 mg/dL (0.70-1.30); Calcium 9.2 mg/dL (8.5-10.1); Chloride 105 mmol/L (98-107); Estimated GFR 90.58 (mL/min/1.73m2); Glucose 125 mg/dL (74-106); Potassium 3.8 mmol/L (3.5-5.1); Sodium 142 mmol/L (136-145)
[2024-01-13] MEDS: Timolol 0.5% 5 ML BTL OP (07:49)
[2024-01-13] MEDS: Clopidogrel 75 MG TAB PO (07:50)
[2024-01-13] MEDS: Furosemide 20 MG/2 ML VIAL IVP (07:50)
[2024-01-13] MEDS: dilTIAZem CD 120 MG CAPCR 240 MG PO (07:57)
--- NOTE | 2024-01-13 08:00 | DI.US_ITS ---
APPROVED REPORT EXAM: Comprehensive 2D, Doppler, and color-flow Echocardiogram Patient Location: In-Patient Room/Bed: [id number] [employer] Supervisor: Ana Maria Hatfield RDCS (AE) Indications: CHF, Evaluate LV and RV function Other Information Study Quality: Fair. Technically limited study due to body habitus, inability to position patient exa m done supine bedside.. Conclusion Normal left ventricular wall thickness and chamber size. Ejection fraction is 55-60. There are no s egmental wall motion abnormalities Normal right ventricular size and function Both atria are moderately dilated Aortic valve is sclerotic, trileaflet valve stenosis. There is trace aortic regurgitation Thickened mitral leaflets. Mitral annular calcification. Mild mitral regurgitation Mild tricuspid regurgitation. Estimated right ventricular systolic pressure is 38 mmHg Mildly dilated ascending aorta Patient was in atrial fibrillation throughout the study with [id number] variation Compared to the echocardiogram January 2023 there are no significant changes Wall motion Left Ventricle The left ventricle is normal size. The left ventricular systolic function is normal. The left ventric ular ejection fraction is within the normal range. There is normal left ventricular wall thickness. T here is normal LV segmental wall motion. Indeterminate, atrial fibrillation There is no ventricular s eptal defect visualized. LVEF is55-60% . Right Ventricle The right ventricle is normal size. The right ventricular systolic function is normal. Atria Left atrium is moderately dilated. Right atrium is moderately dilated. The interatrial septum is inta ct with no evidence for an atrial septal defect. Aortic Valve The Aortic valve is sclerotic. Aortic valve is trileaflet. There is no aortic valvular stenosis. Trac e aortic regurgitation is present. Mitral Valve mitral annular calcification. Thickened mitral leaflets No evidence of mitral valve stenosis. Mild m itral regurgitation. Tricuspid Valve The tricuspid valve is normal in structure. There is no tricuspid valve stenosis. Mild tricuspid regu rgitation. The RVSP is 38.4_ mmHg. Pulmonic Valve The pulmonary valve is normal in structure. There is no pulmonic valvular stenosis. Mild pulmonic reg urgitation. Great Vessels The aortic root is normal in size. The ascending aorta is mildly dilated. Aortic arch is not well vis ualized. The IVC collapses <50% with inspiration. Pericardium There is no pericardial effusion. 2D Dimensions IVSD d PLAX 1.14 cm M: 0.6-1.2 Ao Root d 3.59 cm M: 3.1 - 3.7 LVPW d PLAX 1.11 cm M: 0.6 - 1.2 Ao Asc Diam d 3.76 cm M: 2.6 - 3.4 LVID d PLAX 4.24 cm M: 4.2 - 5.8 LVDs 3.21 cm M: 2.5 - 4.0 LV EF Teichholz 48.6 % FS 24.28 % LV EDV (Teich) 80.5 mL LV ESV (Teich) 41.4 mL LV Volumes - Method of Disks (Champagne's) Single Plane 2D LV Volumes Biplane 2D LV Volumes LV EDV A2C 68.4 mL LV EDV BP Index LV ESV A2C 35.4 mL SV BP LVEF(%) A2C 48.3 % SV Index LA Volume LA Length A4C 6.3 cm LA Length A2C 6.2 cm LA Area A4C s 28.79 cm2 LA Area A2C s 31.63 cm2 LA Vol A4C A-L 111.95 mL LA Vol A2C A-L 137.14 mL LA Vol Biplane A-L 124.8 mL LA Vol/BSA A4C A-L LA Vol/BSA A2C A-L LA Vol/BSA BP A-L 57.3 mL/m2 LA Vol A4C MOD 102.3 mL LA Vol A2C MOD 122.5 mL LA Vol BP MOD 112.4 mL RA Volume RA Area A4C 19.4 cm2 RA ESV A4C (A-L) 50.1mL RA Vol/BSA A4C A-L RA Length A4C 6.4 cm RA ESV A4C (MOD) 46.5mL LV Diastology MV E' medial 0.073 (>0.07 m/s) MV E Vmax 1.51 (0.4-1.3 m/s) MV E' lateral 0.104 (>0.1 m/s) Aortic Valve AoV Vmax 1.33 m/s LVOT Vmax 0.85 m/s AoV Peak Grad 7.1 mmHg LVOT Peak Grad 2.9 mmHg AoV Area (Vmax) 1.99 cm2 LVOT VTI 0.192 m AoV VTI 0.246 m LVOT Mean Grad 1.8 mmHg AoV Mean Valdemar. 0.94 m/s LVOT SV 59.66 mL AoV Mean Grad 4.0 mmHg LVOT Diam s 1.95 cm AoV Area (VTI) 2.43 cm2 Velocity Ratio 0.64 Mitral Valve MV Vmax TIPS 1.74 m/s MV Mean Grad 3.7 (<2mmHg) MV Area PHT 1.95 cm2 MV VTI 0.532 m Pulmonary Valve PV Vmax 0.93 (0.5-1.5 m/s) RVOT Vmax 0.68 m/s PV Peak Grad 3.5 mmHg RVOT Peak Gr. 1.9 mmHg PV Mean Valdemar 0.54 m/s RVOT VTI 0.098 m PV Mean Grad 1.5 mmHg RVOT Mean Gr. 1.1 mmHg Tricuspid Valve RA Pressure 8.00 mmHg TR Vmax 2.75 m/s TV S' 0.11 m/s TR Peak Grad 30.3 mmHg RVSP (TR) 38.4 mmHg
--- NOTE | 2024-01-13 08:36 | W.PM.PROGNOT ---
Date of Service Date of service: 01/13/24 Time of Service: 08:36 Assessment and Plan Assessment and plan (1) Atrial fibrillation with RVR: Status: Acute Assessment and plan: now improved rate control. he has a follow up w/ cardiology in January. He needs to discuss having a Watchman device since he has been intolerant of anticoagulation. (2) CHF (congestive heart failure): Status: Chronic Assessment and plan: last echocardiogram was done 01/14/23 and demonstrated the following: Conclusion Normal left ventricular wall thickness and chamber size. Estimated ejection fraction is 55 to 60%. There were no segmental wall motion abnormalities Grossly normal right ventricular size and function Both atria are mildly dilated Aortic valve is sclerotic with trace regurgitation Mitral annular calcification, mild to moderate mitral regurgitation Normal tricuspid valve with moderate to severe regurgitation. Estimated right ventricular systolic pressure is 39 mmHg Dilated ascending aorta Patient was in atrial fibrillation with an uncontrolled rate throughout the study with [id number] variation His chest CTA showed small bilateral pleural effusions, his bedside US shows bilateral B lines primarily in the lower to mid lung zones, echo did not show any wall motion abnormalities but his IVC is dilated at 2.6 and w/ less than 50% inspiratory collapse suggesting he has elevated RAP. I have ordered some iv lasix, particularly in light of his receiving 1 liter of LR in the ED. Above notes reflect my findings yesterday. Today, I did not perform US of his lungs or heart but went on clinical exam. He has no dyspnea, did not get any PND last night and has no periopheral edema. I have stopped his lasix If his HR remains controlled today, he can go home tonight. Qualifiers: Heart failure type: diastolic Heart failure chronicity: acute on chronic Qualified Code(s): I50.33 - Acute on chronic diastolic (congestive) heart failure (3) Left rib fracture: Status: Acute Assessment and plan: will use lidocaine patches and Tylenol Qualifiers: Encounter type: initial encounter Rib fracture type: single rib Fracture type: closed Qualified Code(s): S22.32XA - Fracture of one rib, left side, initial encounter for closed fracture (4) Atherosclerosis of [place] coronary artery of [place] heart without angina pectoris: Status: Chronic Assessment and plan: no ischemic pain or EKG changes and negative troponin levels. (5) Hypertension: Status: Chronic Assessment and plan: will hold his lisinopril until I see how his BP responds to the diltiazem Subjective Subjective Interval history since last seen: Camacho feels markedly better. He has been off the diltiazem drip since last night. He is now on diltiazem CD 240 mg bid. Rhythm remains afib but rate is better controlled. Exam Narrative Exam Narrative: Tomas is sitting up in his chair, having finished breakfast, he is now getting washed up. He is alert and oriented, he denies any CP or palpitations or dyspnea LUngs: clear, the rales heard yesterday have cleared Heart: irregularly irregular but now controlled rate (monitor shows rates in the 90's to 100) Abdomen: benign Legs/feet: no edema Objective Last Vital Signs Temp 36.5 C 01/13/24 07:23 Pulse 125 H 01/13/24 07:01 Resp 21 01/13/24 07:23 BP 125/64 01/13/24 07:23 Pulse Ox 96 01/13/24 07:23 Laboratory Results - last 24 hr 01/12/24 01/12/24 01/12/24 08:30 08:42 11:32 WBC 10.90 H RBC 4.61 Hgb 14.7 Hct 43.8 MCV 95 MCH 31.9 MCHC 33.6 RDW 13.1 Plt Count 370 MPV 10.6 Immature Gran % 0.5 Neutrophils % 72.0 Lymphocytes % 13.4 Monocytes % 6.4 Eosinophils % 7.2 Basophils % 0.5 Nucleated RBC % 0.0 Absolute Neutrophils 7.85 H Absolute Lymphocytes 1.46 Absolute Monocytes 0.70 Absolute Eosinophils 0.78 H Absolute Basophils 0.05 VBG Lactate 1.9 H Sodium 141 Potassium 3.2 L Chloride 102 Carbon Dioxide 27.8 Anion Gap 11.2 H BUN 17 Creatinine 0.9 Est GFR (CKD-EPI 2020) 87.42 Glucose 148 H Calcium 10.0 Magnesium 1.7 L Total Bilirubin 1.6 H AST 15 ALT 20 Alkaline Phosphatase 129 H Troponin I < 50 NT-Pro-B Natriuret Pep 2229 H Total Protein 8.3 H Albumin 3.6 TSH 4.99 H Free T4 1.19 COVID-19 Source Nasopharynx SARS-CoV-2 (PCR) Negative Influenza Type A (PCR) Positive A Influenza Type B (PCR) Negative RSV (PCR) Negative 01/12/24 01/12/24 01/13/24 12:10 17:15 05:35 WBC 8.23 RBC 3.73 L Hgb 12.2 L D Hct 35.4 L MCV 95 MCH 32.7 MCHC 34.5 RDW 13.2 Plt Count 308 MPV 10.6 Immature Gran % 0.2 Neutrophils % 64.7 Lymphocytes % 17.6 Monocytes % 9.2 Eosinophils % 7.8 Basophils % 0.5 Nucleated RBC % 0.0 Absolute Neutrophils 5.32 Absolute Lymphocytes 1.45 Absolute Monocytes 0.76 Absolute Eosinophils 0.64 Absolute Basophils 0.04 VBG Lactate Sodium 142 Potassium 3.8 Chloride 105 Carbon Dioxide 27.6 Anion Gap 9.4 BUN 15 Creatinine 0.8 Est GFR (CKD-EPI 2020) 90.58 Glucose 125 H Calcium 9.2 Magnesium Total Bilirubin AST ALT Alkaline Phosphatase Troponin I < 50 < 50 NT-Pro-B Natriuret Pep Total Protein Albumin TSH Free T4 COVID-19 Source SARS-CoV-2 (PCR) Influenza Type A (PCR) Influenza Type B (PCR) RSV (PCR) PAWSS Have you Been Recently Intoxicated or Drunk Within the Last 30 days?: No Have you Ever Experienced Previous Episodes of Alcohol Withdrawal?: No Have you ever Experienced Withdrawal Seizures?: No Have you ever Experienced Delirium Tremens(DT)s?: No Have you ever undergone Alcohol Rehabilitation Treatment (i.e, inpt ot outpatient treatment programs)?: No Have you ever Experienced Blackouts?: No Have you ever Combined Alcohol with other Downers within the last 90 days?: No Have you ever Combined Alcohol with any other Substance of Abuse during the last 90 days?: No Positive Blood Alcohol level on Presentation? [PCS.BAL]: No Evidence of Increased Autonomic Activity (i.e. HR>120, tremor, sweating, agitation, nausea)?: No Result: 0 Time Spent with Patient Time Spent with Patient: 35-49 minutes Time was spent: preparing to see the patient(eg.review tests), referring, communicating with other health career based intervention coordinator, indepentently interpreting results, counseling the patient and care coordination
--- NOTE | 2024-01-13 09:58 | INITIAL_ITS ---
Date of service: 01/13/24 Time of Service: 09:58 Care Management Initial Assmt Initial Assessment REASON FOR HOSPITALIZATION:: Rapid Afib PREVIOUS FUNCTIONAL STATUS/SOCIAL/FAMILY SUPPORTS:: Tomas lives in [facility] with his , Kisha. Together, they have six children. He has four of his own, she has one of her own, and they have one together. Both he and his were twice before, but they have now been for 47 years. His 's daughter and two of their grandchildren are living with Tomas and his currently. His son Amadeo lives nearby, and is very supportive. 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 He is independent with his ADL's at baseline. CURRENT FUNCTIONAL STATUS:: Tomas was sitting up in his chair when CM met with him. He stated that he is feeling good today, and is hoping to be able to return home, or if not today, early tomorrow. CM discussed his recent admission, and he stated that he feels that he is back because he made an error in taking his medications. He stated that after discharge he met with his PCP, who changed one of the new medications; two of the new medications both start with D, and he stated he choose the wrong one to replace, which is why he had symptoms and went to the ED. He referred to this as patient error. He stated that he is happy that he understands what happened, so that he knows how to correct it. CM will continue to follow. ADVANCE DIRECTIVES:: On file; Kisha (spouse) listed as HCA. Michelle Gilman listed as alternate agent. Has patient been provided with info about the portal/API?: Yes Did the patient sign up for the portal?: Yes (active) CODE STATUS:: Full Code INSURANCE COVERAGE / FINANCIAL ISSUES:: VBA CURRENT HOME/COMMUNITY SERVICES/EQUIPMENT:: No current services or equipment PRIMARY CARE PHYSICIAN:: Camacho Barrera POTENTIAL DISCHARGE NEEDS:: Follow up appointments PATIENT/FAMILY EDUCATION NEEDS:: Review discharge instructions and limitations, discussion of self care needs including ask me three. ANTICIPATED BARRIERS TO DISCHARGE:: None identified. TRANSPORTATION:: Via private vehicle by family. PLAN:: Tomas will return home once medically cleared. His son will drive him home via private vehicle. He will follow up with his PCP and discharge plan of care. CM will continue to follow. [facility] All Active Problems (Updated 01/13/24 @ 14:08 by Gigi Harrison MD) Atrial fibrillation with RVR (Acute) CHF (congestive heart failure) (Chronic) Influenza A (Acute) Left rib fracture (Acute) Atherosclerosis of aorta (Chronic) Enlarged prostate (Acute) Orthostatic hypotension (Acute) Atrial fibrillation with RVR (Acute) Low back pain (Acute) Atrial fibrillation (Chronic) History of left-sided carotid endarterectomy (Acute) 07/16/2023 at [facility] [place] Peripheral artery disease (Acute) 08/15/23 F/u Vascular Non-healing skin lesion (Acute) Hyperlipidemia, unspecified (Acute) Acute ischemic stroke (Acute 05/18/23) Occlusion of right vertebral artery (Acute) Carotid stenosis, bilateral (Chronic) I65.21 - Right-sided extracranial carotid artery stenosis Macrocytosis without anemia (Acute) Primary open angle glaucoma (POAG) of right eye, mild stage (Chronic) Cough (Acute) Tricuspid regurgitation (Acute) Beat, premature ventricular (Acute ~08/2022) 09/11/22 Cardiology 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 (Acute) Syncope (Chronic) Prolonged QT interval (Acute) Atrial tachycardia determined by electrocardiography (Acute) Internal hemorrhoids (Acute) Blood glucose abnormal (Acute 11/03/14) Trigger middle finger of right hand (Acute 04/25/16) Abdominal aortic aneurysm (AAA) 3.0 cm to 5.5 cm in diameter in male (Chronic) Found in October 2018, needs to be rechecked every 3 years Pure hypercholesterolemia (Chronic 01/31/12) goal LDL<70 Metabolic syndrome X (Chronic 02/15/13) goal 215# 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 s/p stenting x 5 2010 or 2011 at [facility] b. presenting symptom was primarily fatigue Hypertension (Chronic) Benign prostatic hypertrophy (Chronic) Atrial fibrillation (Chronic) I48.0 Paroxysmal atrial fibrillation 10/09/20 [facility] [place] Cardiology Medical History Fall Orthostatic hypotension Elevated troponin I level Ischemic stroke Hx of colonic polyps H/O: urinary stone Surgical History S/P ablation of atrial fibrillation (10/2018) steriotactic brain bx (01/27/15) [facility] [place] bx brain abscess R small trigger finger release (05/28/16) [place] Family History Mother , HF at age 89. Heart disease Father , stroke HBP at age 90. Essential hypertension Brother , heart at age 82. No problems noted. Brother No problems noted. 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 Pets and animals: No Sexually active: Yes Do you think of yourself as: straight/heterosexual Current gender identity: male What is your relationship status?: How often do you talk on the phone with friends or family?: three or more times per week How often do you get together with friends or relatives?: three or more times per week Do you belong to any clubs or organized social groups?: yes Panel score (0-1 are the most socially isolated patients): 3 What type of physical activity do you participate in: none Cassidy/Denominational: None Special cassidy needs: No Seatbelt use: always Drive intox or ride w/intox driver medic: No Working smoke detector in home: Yes Fire extinguisher in home: Yes Carbon monox detector in home: Yes Do you feel safe at home: Yes Do you feel safe in your relationship?: Yes Readmission Within the Past 30 Days Yes or No: Yes Date of First Admission Date of 1st Admission: 01/02/24 Date of this Admission Date of Admission: 01/12/24 This admission was: Through ED Office Visit Since 1st Admission Have you seen your PCP in the office since discharge?: Yes Date of PCP Appointment: 01/08/24 Had an appointment Been Scheduled?: Yes I. Interview patient and/or Family Difficulty reaching your doctor or getting an office appt?: No Have you had trouble purchasing/ or taking medication?: No How do you take your medications and set up your pills?: independently Have you had trouble with getting meals at home?: No Did you feel ready for discharge when you left the last time: Yes Were services received that you thought were set up on disch: No Why weren't services received?: Not indicated Reason there were no orders at discharge: Not indicated How do you think you became sick enough to come back?: Tomas stated that he went to his PCP office and his MD advised him to start taking one medication and discontinue another, and he discontinued the wrong medication. ED visits How many ED visits in the past 12 months: 9 Assessment for Readmission Summary of readmission circumstances, based upon interviews: Tomas returned to [facility] for rapid Afib after he accidentally discontinued the wrong medication. He stated that he was started on two new medications which both started with a d while inpatient. When he met with his PCP, they decided to change one of those medications to a medication he previously took (lisinopril). He stated that he discontinued the wrong medication because he was confused about the names of them. He referred to this as patient error and stated that he is glad to know what happened, and that it can easily be corrected. He is looking forward to returning home. SDOH(Care Management) Screening Will the Patient Participate in the Screening?: Yes Do you worry about having a steady place to live?: yes Problems where you live: no known problems In the past 12 months, have you had to go without electric, gas, oil or water in your home?: no Have you or anyone in your house had to go without enough food to eat?: no Has lack of transportation kept you from medical appointments or from doing things needed for daily living?: no Has anyone in your support network made you feel unsafe for any reason?: no Health Related Social Needs Health related social needs: housing instability, housed, with risk of homelessness(Z59.811)
--- NOTE | 2024-01-13 19:17 | DSE_ITS ---
Date of service: 01/13/24 Time of Service: 19:17 DS: Diagnosis Discharge Diagnosis (1) Atrial fibrillation with RVR: Status: Acute Asessment and Plan: Initially controlled with IV diltiazem and later controlled with titration of his oral dose of diltiazem CD. Patient will be discharged home on diltiazem CD2 140 mg twice a day. (2) CHF (congestive heart failure): Status: Chronic Asessment and Plan: Patient had some symptoms of acute congestive heart failure probably brought on by rapid atrial fibrillation in the setting of HFpEF and biatrial enlargement. He responded well to IV Lasix. Present time he seems to be euvolemic and will not be discharged home on any diuretics. Lisinopril has been held to allow enough blood pressure for titration of his diltiazem. (3) Left rib fracture: Status: Acute Asessment and Plan: Treated with topical lidocaine patch (4) Atherosclerosis of [place] coronary artery of [place] heart without angina pectoris: Status: Chronic Asessment and Plan: Patient was ruled out for ACS with negative troponin levels. (5) Hypertension: Status: Chronic Asessment and Plan: Lisinopril was discontinued in favor of titration of his Cardizem CD. However he understands that he may have to go back on a low-dose lisinopril when he follows up with Dr. Barrera in the next 1 to 2 weeks. Discharge Plan Disposition Patient Disposition: Home Condition: Improving Discharge Details Reason For Visit: Rapid atrial fibrillation Admit Date/Time: 01/12/24 14:18 Admit Provider: Gigi Harrison Attending Provider: Gigi Harrison Primary Care Provider: Camacho Barrera Hospital Course Hospital Course: See admission H&P for details. In summary Camacho Flores is a 78-year-old gentleman who has chronic atrial fibrillation with paroxysms of rapid ventricular response. He has had previous ablation as well as multiple cardioversions but has not been able to maintain sinus rhythm. He was recently hospitalized at [facility] was discontinued from his digoxin and metoprolol and put on diltiazem CD. Because of low blood pressure readings and orthostasis his lisinopril was withheld. He followed up with his primary care provider Dr. Camacho Barrera who reinstituted his lisinopril at a lower dose. Tomas presents to the hospital with acute onset of PND and orthopnea and was found to be in rapid atrial fibrillation. He was given a couple doses of diltiazem bolus in the emergency department and was started on diltiazem drip he was given his usual daily dose of diltiazem CD2 140 mg. He was admitted to the intensive care unit and was ruled out for ACS with serial negative troponin levels. He was found to be in some mild congestive heart failure on admission was given IV Lasix.Echocardiogram was updated and was found to have normal left ventricular size as well as normal left ventricular wall thickness. His LVEF was 55 to 60% with no wall motion abnormalities. Right ventricular size and function was normal however he has moderate biatrial dilatation. Aortic valve is sclerotic trileaflet without stenosis he has a trace aortic regurgitation. He has MAC with mild mitral regurgitation. His estimated RVSP is 38 mm. There is a mildly dilated ascending aorta. When compared to his prior echocardiogram from January 2023 there is been no significant change. Patient's diltiazem was uptitrated to diltiazem CD 240 mg twice a day. This seemed to reasonably control his heart rate. As he was no longer symptomatic and he was desiring to return home he was discharged home in improved condition. He should keep a follow-up with his EP cotton picker, Dr. Gonzales Torres and should be seen in the next month. He should see his PCP, Dr. Camacho Barrera in the next week. Patient as advised to withold his lisinopril until he sees, Dr. Barrera. Home Meds and New Rx's Prescriptions: New lidocaine [Lidoderm] 5 % adhesive patch,medicated 1 patch topical DAILY Qty: 30 0RF Rx Instructions: leave on most painful area for up to 12 hrs Continued timolol maleate 0.5 % gel forming solution 1 drp ophthalmic (eye) BID clotrimazole 1 % cream 1 applic topical BID Qty: 45 3RF atorvastatin 80 mg tablet 80 mg PO DAILY Patient Comments: TAKE ONE TABLET BY MOUTH EVERY EVENING clopidogrel 75 mg tablet 75 mg PO DAILY Hold Instructions: per [facility] Changed diltiazem HCl 240 mg capsule,extended release 24hr 240 mg PO BID Qty: 0 0RF Patient Comments: TAKE ONE CAPSULE BY MOUTH EVERY MORNING Discontinued lisinopril 10 mg tablet 10 mg PO DAILY Qty: 90 3RF digoxin 125 mcg (0.125 mg) tablet 0.125 mg PO DAILY Patient Comments: TAKE ONE TABLET BY MOUTH EVERY DAY metoprolol tartrate 25 mg tablet 25 mg PO BID Patient Comments: TAKE ONE TABLET BY MOUTH TWICE A DAY Discharge Instructions Activity:: Activity as Tolerated Equipment/Supplies:: No Equipment Needed Diet:: Low Sodium Discharge Orders Discharge Orders: Discharge Order (Routine); Ordered 01/13/24 Ordered By: Gigi Harrison Discharge Data Discharge Date/Time-TO BE ENTERED AT DEPARTURE: 01/13/24 18:16 Discharge Comment: D/C home with DS: Summary Time Spent with Patient providing and/or coordinating discharge services: Greater than 30 minutes Specific discharge activities: Interview/exam of patient; review of discharge instructions, completion of prescriptions/discharge instructions; discussion w/ nursing and CM; documentation of hospital visit Status at Discharge Functional status at discharge: independent ambulation Overall status at discharge: patient is back to baseline Mental Status: mental status grossly normal Speech and Movement: speech and movement normal Mood: congruent mood Affect: normal affect Quality:SDOH Health Related Social Needs: Health related social needs risk of homeless Exam Narrative Exam Narrative: Tomas is sitting up in his chair, he has had no symptoms throughout the day of palpitations, dyspnea, chest pain LUngs: clear Heart: irregularly irregular but now controlled rate (monitor shows rates in the 70's) No peripheral edema Psych Mental Status: mental status grossly normal Speech and Movement: speech and movement normal Mood: congruent mood Affect: normal affect DS: Data Vitals/I&O Vitals and I&O: Vital Signs Temperature 36.5 C 01/13/24 07:23 Temperature Source Temporal Artery Scan 01/13/24 07:23 Pulse 65 01/13/24 18:07 Pulse 84 01/13/24 18:07 Respiratory Rate 25 H 01/13/24 18:07 Respiratory Effort Normal 01/13/24 07:23 Respiratory Depth Normal 01/13/24 07:23 Respiratory Pattern Normal 01/13/24 07:23 Blood Pressure 120/79 01/13/24 18:07 Blood Pressure Mean 90 01/13/24 18:07 Blood Pressure Position Supine 01/13/24 07:23 Pulse Oximetry 95 01/13/24 18:07 Oxygen Delivery Method Room Air 01/13/24 07:23 Oxygen Flow Rate 0 01/13/24 07:23 Pain Level 0 01/13/24 18:16 Comment 2l 01/13/24 02:01 Intake & Output 01/12/24 01/13/24 01/13/24 23:59 11:59 23:59 Intake Total 1665.458 / 1675.458 240 / 600 360 / 600 Output Total 950 / 950 775 / 1075 300 / 1075 Balance 715.458 / 725.458 -535 / -475 60 / -475 Weight 94.34 kg 93.2 kg Intake: IV 1185.458 / 1195.458 Oral 480 / 480 240 / 600 360 / 600 Output: Urine 950 / 950 775 / 1075 300 / 1075 Other: Urine Color Pale Yellow Yellow [place] Urine Appearance Clear Clear Clear Comment using a urinal at bedside Stool Size Moderate Stool Characteristics Soft Formed Brown Voiding Methods Urinal Urinal Data Completed and Pending Labs on day of discharge: Labs from last 24 hours 01/13/24 05:35 WBC 8.23 RBC 3.73 L Hgb 12.2 L D Hct 35.4 L MCV 95 MCH 32.7 MCHC 34.5 RDW 13.2 Plt Count 308 MPV 10.6 Immature Gran % 0.2 Neutrophils % 64.7 Lymphocytes % 17.6 Monocytes % 9.2 Eosinophils % 7.8 Basophils % 0.5 Nucleated RBC % 0.0 Absolute Neutrophils 5.32 Absolute Lymphocytes 1.45 Absolute Monocytes 0.76 Absolute Eosinophils 0.64 Absolute Basophils 0.04 Sodium 142 Potassium 3.8 Chloride 105 Carbon Dioxide 27.6 Anion Gap 9.4 BUN 15 Creatinine 0.8 Est GFR (CKD-EPI 2020) 90.58 Glucose 125 H Calcium 9.2 Preliminary micro results at discharge 01/12/24 12:00 Blood Culture - Preliminary Blood NO GROWTH 24 HOURS 01/12/24 11:32 Blood Culture - Preliminary Blood NO GROWTH 24 HOURS PFSH All Active Problems Atrial fibrillation with RVR (Acute) CHF (congestive heart failure) (Chronic) Influenza A (Acute) Left rib fracture (Acute) Atherosclerosis of aorta (Chronic) Enlarged prostate (Acute) Orthostatic hypotension (Acute) Atrial fibrillation with RVR (Acute) Low back pain (Acute) Atrial fibrillation (Chronic) History of left-sided carotid endarterectomy (Acute) 07/16/2023 at [facility] Peripheral artery disease (Acute) 9/15/23 F/u Vascular Non-healing skin lesion (Acute) Hyperlipidemia, unspecified (Acute) Acute ischemic stroke (Acute 05/18/23) Occlusion of right vertebral artery (Acute) Carotid stenosis, bilateral (Chronic) I65.21 - Right-sided extracranial carotid artery stenosis Macrocytosis without anemia (Acute) Primary open angle glaucoma (POAG) of right eye, mild stage (Chronic) Cough (Acute) Tricuspid regurgitation (Acute) Beat, premature ventricular (Acute ~08/2022) 09/11/22 Cardiology 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 (Acute) Syncope (Chronic) Prolonged QT interval (Acute) Atrial tachycardia determined by electrocardiography (Acute) Internal hemorrhoids (Acute) Blood glucose abnormal (Acute 11/03/14) Trigger middle finger of right hand (Acute 04/25/16) Abdominal aortic aneurysm (AAA) 3.0 cm to 5.5 cm in diameter in male (Chronic) Found in October 2018, needs to be rechecked every 3 years Pure hypercholesterolemia (Chronic 01/31/12) goal LDL<70 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 s/p stenting x 5 2010 or 2011 at [facility] b. presenting symptom was primarily fatigue Hypertension (Chronic) Benign prostatic hypertrophy (Chronic) Atrial fibrillation (Chronic) I48.0 Paroxysmal atrial fibrillation 10/09/20 [facility] Cardiology Medical History Fall Orthostatic hypotension Elevated troponin I level Ischemic stroke Hx of colonic polyps H/O: urinary stone Surgical History S/P ablation of atrial fibrillation (10/2018) steriotactic brain bx (01/27/15) [facility] bx brain abscess R small trigger finger release (05/28/16) [place] Family History Mother , HF at age 89. Heart disease Father , stroke HBP at age 90. Essential hypertension Brother , heart at age 82. No problems noted. Brother No problems noted. 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 Pets and animals: No Sexually active: Yes Do you think of yourself as: straight/heterosexual Current gender identity: male What is your relationship status?: How often do you talk on the phone with friends or family?: three or more times per week How often do you get together with friends or relatives?: three or more times per week Do you belong to any clubs or organized social groups?: yes Panel score (0-1 are the most socially isolated patients): 3 What type of physical activity do you participate in: none Cassidy/Synagogue: None Special cassidy needs: No Seatbelt use: always Drive intox or ride w/intox trailer driver: No Working smoke detector in home: Yes Fire extinguisher in home: Yes Carbon monox detector in home: Yes Do you feel safe at home: Yes Do you feel safe in your relationship?: Yes Time Spent with Patient Time Spent with Patient: <45 minutes Time was spent: preparing to see the patient(eg.review tests), ordering medications,tests, procedures, referring, communicating with other health adult daycare coordinator, indepentently interpreting results, counseling the patient (I shared with the patient and his results of his echocardiogram from today and his CT scan from yesterday. He received copies of each.) and care coordination
--- NOTE | 2024-01-14 15:39 | PDOC.CMPRO ---
Date of service: 01/14/24 Time of Service: 15:39 Care Management Progress Note Progress Note Text Progress Note Text: During patient call back, with ULISES Thornton patient identified concern around change in medication as noted in DC Summary below: Changed diltiazem HCl 240 mg capsule,extended release 24hr 240 mg PO BID Qty: 0 0RF Patient Comments: TAKE ONE CAPSULE BY MOUTH EVERY MORNING Patient reported anticipating new prescription to cover change in dose-now taking twice a day. Also noted order on DC Summary under patient comments continues to state one capsule daily. ULISES called MD who reported he would submit new prescription for patient, and noted the comment automatically populated on the note-but was an error. ULISES called Tomas and reviewed MD plan for new prescription, and confirmed twice daily dosing. Tomas confirmed having enough medication until he is able to retrieve new prescription from [facility] in [facility]. SDOH(Care Management) Screening Will the Patient Participate in the Screening?: Yes Do you worry about having a steady place to live?: yes Problems where you live: no known problems In the past 12 months, have you had to go without electric, gas, oil or water in your home?: no Have you or anyone in your house had to go without enough food to eat?: no Has lack of transportation kept you from medical appointments or from doing things needed for daily living?: no Has anyone in your support network made you feel unsafe for any reason?: no Health Related Social Needs Health related social needs: housing instability, housed, with risk of homelessness(Z59.811)
== END 2024-01-13 18:16 | disposition home or self-care (01) | DRG 308 ==
LOC: ER 14:17 → ICU 16:03
PROVIDERS: Admitting Provider Internal Medicine; Emergency Provider Student in an Organized Health Care Education/Training Program; PCP Family Medicine; Visit Provider Internal Medicine
DX: I48.0 Paroxysmal atrial fibrillation (principal); I50.33 Acute on chronic diastolic (congestive) heart failure; I69.354 Hemiplegia and hemiparesis following cerebral infarction affecting left non-dominant side; I08.3 Combined rheumatic disorders of mitral, aortic and tricuspid valves; I25.10 Atherosclerotic heart disease of native coronary artery without angina pectoris; I11.0 Hypertensive heart disease with heart failure; S22.32XD Fracture of one rib, left side, subsequent encounter for fracture with routine healing; W19.XXXD Unspecified fall, subsequent encounter; I70.0 Atherosclerosis of aorta; I73.9 Peripheral vascular disease, unspecified; I95.1 Orthostatic hypotension; N40.0 Benign prostatic hyperplasia without lower urinary tract symptoms; E78.5 Hyperlipidemia, unspecified; M51.26 Other intervertebral disc displacement, lumbar region; E78.00 Pure hypercholesterolemia, unspecified; Z95.5 Presence of coronary angioplasty implant and graft
CPT/HCPCS: 00123; 36415; 71275; 80048; 80053; 87040; 87637; 93005; 93306; 96365; 96368; 96376; 99291; J1650; 71046; 83605; 83735; 83880; 84439; 84443; 84484; 85025; 93010; 99238; J1941; J1956; J3490

== ENCOUNTER 2024-01-20 16:06 | Observation (INO) | payer MEDICARE, SELFPAY ==
[2024-01-20] VITALS (58 sets, daily range): BP systolic 129–173; BP diastolic 78–129; PULSE 65–119; RESP 11–32; TEMP 36.5–36.7; O2SAT 95–98
--- NOTE | 2024-01-20 16:45 | RT.EKG_ITS ---
APPROVED REPORT Exam: Resting ECG Reason for Exam: sleep disruption Patient Location: E HR:91 bpm ECG Measurements Heart Rate 91 AXIS MN [id number] P [id number] QRSd 81 QRS 66 QT [id number] T 158 QTc 0 Conclusion Atrial fibrillation...? atrial activity Nonspecific T abnrm, anterolateral leads...T <-0.10mV, I aVL V2-V6
--- NOTE | 2024-01-20 16:45 | DI.RAD_ITS ---
Exam(s) XR CHEST 2V PA LATERAL EXAM: XR CHEST 2V PA LATERAL CLINICAL HISTORY: difficulty breathing TECHNIQUE: 2D digital imaging was performed of the chest. Two images were obtained. PA and lateral views were obtained. COMPARISON: CR,XR XR CHEST 2V PA LATERAL from 05/18/2023 CR XR CHEST 2V PA LATERAL from 01/12/2024 FINDINGS: MEDIASTINUM: Normal. HEART: Cardiomegaly. PULMONARY VASCULATURE: Mild pulmonary venous congestion. LUNGS: No focal consolidating infiltrate. PLEURAL SPACE: Small pleural effusions. BONE:Within normal limits for the patient's age. OTHER FINDINGS:Normal. IMPRESSION: 1. Cardiomegaly. 2. Mild pulmonary venous congestion and small pleural effusions. DATA REPOSITORY: RADIATION DOSE DELIVERED:
[2024-01-20 17:03] LABS: BE (Venous) 3 mmol/L (-2-3); HCO3 (Venous) 28 mmol/L (23-28); O2 Sat (Venous) 60 %; TCO2 (Venous) 25 mmol/L (24-29); pCO2 (Venous) 43 mmHg (41-51); pH (Venous) 7.42 (7.31-7.41); pO2 (Venous) 32 mmHg
[2024-01-20 17:04] LABS: Abs Immature Grans 0.04 10^3/uL (0.0-0.06); Absolute Basophil Count 0.06 10^3/uL (0.0-0.2); Absolute Eosinophil Count 0.66 10^3/uL (0.0-0.7); Absolute Lymphocyte Count 1.31 10^3/uL (1.2-3.4); Absolute Monocyte Count 0.91 10^3/uL (0.1-0.8); Absolute Neutrophil Count 5.51 10^3/uL (1.2-6.7); Basophils % 0.7; Eosinophils % 7.8; HCT 41.2 % (40.0-50.0); HGB 13.7 g/dL (13.5-17.5); Immature Grans % 0.5; Lymphocytes % 15.4; MCH 31.8 pg (27.0-33.0); MCHC 33.3 % (32.0-36.0); MCV 96 fL (80-95); MPV 10.6 fL (8.0-11.0); Monocytes % 10.7; Neutrophils % 64.9; Platelet Count 312 10^3/uL (130-400); RBC 4.31 10^6/uL (4.36-5.78); RDW 13.4 % (11.8-14.1); RDW-SD 47.8 fL; WBC 8.49 10^3/uL (4.4-10.8)
[2024-01-20 17:27] LABS: ALT 26 U/L (16-63); AST 15 U/L (15-37); Albumin 3.6 g/dL (3.4-5.0); Alkaline Phosphatase 130 U/L (46-116); Anion Gap 9.7 mmol/L (3-11); BUN 24 mg/dL (7-18); Bilirubin, Total 1.1 mg/dL (0.2-1.0); CO2 27.3 mmol/L (21.0-32.0); CREATININE 0.9 mg/dL (0.70-1.30); Calcium 9.5 mg/dL (8.5-10.1); Chloride 106 mmol/L (98-107); Estimated GFR 87.42 (mL/min/1.73m2); Glucose 114 mg/dL (74-106); Potassium 3.3 mmol/L (3.5-5.1); Sodium 143 mmol/L (136-145); Total Protein 7.7 g/dL (6.4-8.2)
[2024-01-20 17:37] LABS: NT-proBNP 938 pg/mL (<300)
[2024-01-20] MEDS: POTASSIUM CHLORIDE 20 MEQ/100 ML BAG 50 MEQ IVPB ×2 (18:59→23:38)
[2024-01-20] MEDS: Furosemide 20 MG/2 ML VIAL IVP (18:59)
--- NOTE | 2024-01-20 20:40 | W.ED.GENAD ---
HPI General Mode of arrival: ambulatory. Date/Time Provider Initiated Documentation: 01/20/24 16:37. Limitations to Documentation: no limitations. Information obtained by: patient. HPI Narrative: 78-year-old male with multiple medical problems including recent admission for atrial fibrillation with associated CHF, presents tonight with chief complaint of difficulty breathing. Patient notes that over the past 3 days he falls asleep and then he suddenly wakes up gasping for breath. He has not been able to sleep because of this problem. He has no associated chest pain. Related Data Home Medications Medication Instructions Recorded Confirmed timolol maleate 0.5 % eye gel 1 drp ophthalmic (eye) BID 05/08/23 01/20/24 forming solution clotrimazole 1 % topical cream 1 applic topical BID #45 grams 06/27/23 01/20/24 clopidogrel 75 mg tablet 75 mg PO DAILY 07/17/23 01/20/24 atorvastatin 80 mg tablet 80 mg PO DAILY 01/01/24 01/20/24 diltiazem HCl 240 mg 240 mg PO BID #0 caps 01/13/24 01/20/24 capsule,extended release 24 hr lidocaine 5 % topical patch 1 patch topical DAILY #30 ea 01/13/24 01/20/24 (Lidoderm) Previous Rx's Medication Instructions Recorded clotrimazole 1 % topical cream 1 applic topical BID #45 grams 06/27/23 diltiazem HCl 240 mg 240 mg PO BID #0 caps 01/13/24 capsule,extended release 24 hr lidocaine 5 % topical patch 1 patch topical DAILY #30 ea 01/13/24 (Lidoderm) Allergies Allergy/AdvReac Type Severity Reaction Status Date / Time venom-honey bee Allergy Severe HIVES Verified 01/20/24 16:11 [bee venom (honey bee)] TACHYCARDIA Penicillins Allergy Intermediate HIVES Verified 01/20/24 16:11 levetiracetam [From [facility]] AdvReac Severe leukopenia Verified 01/20/24 16:11 prednisone AdvReac Severe rectal Verified 01/20/24 16:11 bleeding and diarrhea aspirin AdvReac Intermediate Nosebleeds Verified 01/20/24 16:11 ceftriaxone AdvReac Intermediate Leukopenia Verified 01/20/24 16:11 simvastatin AdvReac Intermediate LEG PAIN Verified 01/20/24 16:11 DR MCLEOD SHRIMP Allergy Intermediate HIVES , Uncoded 01/20/24 16:11 NAUSEA General Stated Complaint: RespSymp PALOMA: 3 Review of Systems All systems reviewed & are unremarkable except as noted in HPI and below Constitutional Constitutional: Denies fever(s) Respiratory Respiratory: Reports as per HPI and Denies cough Gastrointestinal Gastrointestinal: Denies abdominal pain Exam Extrem General: no pedal edema and no calf tenderness bilaterally Course Vital Signs Vital signs: Vital Signs Temperature 36.5 C 01/20/24 16:12 Pulse 95 H 01/20/24 16:12 Respiratory Rate 16 01/20/24 16:12 Blood Pressure 153/115 H 01/20/24 16:12 Pulse Oximetry 95 01/20/24 16:12 Temperature 36.5 C 01/20/24 16:29 Temperature Source Temporal Artery Scan 01/20/24 16:29 Pulse 119 H 01/20/24 20:10 Pulse 98 H 01/20/24 16:46 Respiratory Rate 16 01/20/24 20:10 Respiratory Effort Normal, Non-Labored 01/20/24 16:29 Blood Pressure 134/78 01/20/24 20:10 Blood Pressure Mean 125 01/20/24 16:46 Blood Pressure Position Sitting 01/20/24 16:29 Pulse Oximetry 98 01/20/24 20:10 Oxygen Delivery Method Nasal Cannula 01/20/24 20:10 Oxygen Flow Rate 2 01/20/24 20:10 Pain Level 0 01/20/24 20:10 Lab/Test Results Lab/Test Results: Laboratory Tests Range/Units 01/20/24 01/20/24 16:50 16:58 WBC (4.4-10.8) 10^3/uL 8.49 RBC (4.36-5.78) 10^6/uL 4.31 L Hgb (13.5-17.5) g/dL 13.7 Hct (40.0-50.0) % 41.2 MCV (80-95) fL 96 H MCH (27.0-33.0) pg 31.8 MCHC (32.0-36.0) % 33.3 RDW (11.8-14.1) % 13.4 Plt Count (130-400) 10^3/uL 312 MPV (8.0-11.0) fL 10.6 Immature Gran % 0.5 Neutrophils % 64.9 Lymphocytes % 15.4 Monocytes % 10.7 Eosinophils % 7.8 Basophils % 0.7 Nucleated RBC % (0.0-0.3) % 0.0 Absolute Neutrophils (1.2-6.7) 10^3/uL 5.51 Absolute Lymphocytes (1.2-3.4) 10^3/uL 1.31 Absolute Monocytes (0.1-0.8) 10^3/uL 0.91 H Absolute Eosinophils (0.0-0.7) 10^3/uL 0.66 Absolute Basophils (0.0-0.2) 10^3/uL 0.06 VBG pH (7.31-7.41) 7.42 H VBG pCO2 (41-51) mmHg 43 VBG pO2 mmHg 32 VBG HCO3 (23-28) mmol/L 28 VBG Total CO2 (24-29) mmol/L 25 VBG O2 Saturation % 60 VBG Base Excess (-2-3) mmol/L 3 Sodium (136-145) mmol/L 143 Potassium (3.5-5.1) mmol/L 3.3 L Chloride (98-107) mmol/L 106 Carbon Dioxide (21.0-32.0) mmol/L 27.3 Anion Gap (3-11) mmol/L 9.7 BUN (7-18) mg/dL 24 H Creatinine (0.70-1.30) mg/dL 0.9 Est GFR (CKD-EPI 2020) (mL/min/1.73m2) 87.42 Glucose (74-106) mg/dL 114 H Calcium (8.5-10.1) mg/dL 9.5 Magnesium (1.8-2.4) mg/dL 2.0 Total Bilirubin (0.2-1.0) mg/dL 1.1 H AST (15-37) U/L 15 ALT (16-63) U/L 26 Alkaline Phosphatase (46-116) U/L 130 H NT-Pro-B Natriuret Pep (<300) pg/mL 938 H Total Protein (6.4-8.2) g/dL 7.7 Albumin (3.4-5.0) g/dL 3.6 Medical Decision Making 78-year-old male with multiple medical problems including history of coronary artery disease, hypertension, atrial fibrillation, recently admitted for A-fib with RVR and CHF, here today with difficulty breathing as he is falling asleep resulting in him waking up gasping for air over the past 3 days. Chest x-ray was reviewed and interpreted by radiology: 1. Cardiomegaly. 2. Mild pulmonary venous congestion and small pleural effusions. Labs reviewed: BNP is mildly elevated, improved from prior. Mild hypokalemia with potassium 3.3. Patient observed on monitor and had multiple episodes of hypoxia down in the mid to lower 80s whenever attempting to go to sleep. Patient would startle and wake up feeling short of breath and saturation was improved to the mid 90s. Patient was placed on nasal cannula oxygen 2L. I will give Lasix 20 mg IV. I will give potassium chloride 20 mEq IV. I called and spoke with Dr. Luna, on-call hospitalist, discussed ED presentation course, he will admit the patient. He request bridging orders be placed for admission. Admission orders placed. Lab Data Lab results reviewed: Yes I reviewed the patient's lab results. Labs: Laboratory Tests Range/Units 01/20/24 01/20/24 16:50 16:58 WBC (4.4-10.8) 10^3/uL 8.49 RBC (4.36-5.78) 10^6/uL 4.31 L Hgb (13.5-17.5) g/dL 13.7 Hct (40.0-50.0) % 41.2 MCV (80-95) fL 96 H MCH (27.0-33.0) pg 31.8 MCHC (32.0-36.0) % 33.3 RDW (11.8-14.1) % 13.4 Plt Count (130-400) 10^3/uL 312 MPV (8.0-11.0) fL 10.6 Immature Gran % 0.5 Neutrophils % 64.9 Lymphocytes % 15.4 Monocytes % 10.7 Eosinophils % 7.8 Basophils % 0.7 Nucleated RBC % (0.0-0.3) % 0.0 Absolute Neutrophils (1.2-6.7) 10^3/uL 5.51 Absolute Lymphocytes (1.2-3.4) 10^3/uL 1.31 Absolute Monocytes (0.1-0.8) 10^3/uL 0.91 H Absolute Eosinophils (0.0-0.7) 10^3/uL 0.66 Absolute Basophils (0.0-0.2) 10^3/uL 0.06 VBG pH (7.31-7.41) 7.42 H VBG pCO2 (41-51) mmHg 43 VBG pO2 mmHg 32 VBG HCO3 (23-28) mmol/L 28 VBG Total CO2 (24-29) mmol/L 25 VBG O2 Saturation % 60 VBG Base Excess (-2-3) mmol/L 3 Sodium (136-145) mmol/L 143 Potassium (3.5-5.1) mmol/L 3.3 L Chloride (98-107) mmol/L 106 Carbon Dioxide (21.0-32.0) mmol/L 27.3 Anion Gap (3-11) mmol/L 9.7 BUN (7-18) mg/dL 24 H Creatinine (0.70-1.30) mg/dL 0.9 Est GFR (CKD-EPI 2020) (mL/min/1.73m2) 87.42 Glucose (74-106) mg/dL 114 H Calcium (8.5-10.1) mg/dL 9.5 Magnesium (1.8-2.4) mg/dL 2.0 Total Bilirubin (0.2-1.0) mg/dL 1.1 H AST (15-37) U/L 15 ALT (16-63) U/L 26 Alkaline Phosphatase (46-116) U/L 130 H NT-Pro-B Natriuret Pep (<300) pg/mL 938 H Total Protein (6.4-8.2) g/dL 7.7 Albumin (3.4-5.0) g/dL 3.6 Quality:SDOH Health Related Social Needs: Health related social needs risk of homeless PFSH All Active Problems (Updated 01/20/24 @ 20:52 by Dean Guerrero MD) Acute hypokalemia (Acute) CHF exacerbation (Acute) Sleep related hypoxia (Acute) Atrial fibrillation with RVR (Acute) CHF (congestive heart failure) (Chronic) Influenza A (Acute) Left rib fracture (Acute) Atherosclerosis of aorta (Chronic) Enlarged prostate (Acute) Orthostatic hypotension (Acute) Atrial fibrillation with RVR (Acute) Low back pain (Acute) Atrial fibrillation (Chronic) History of left-sided carotid endarterectomy (Acute) 07/16/2023 at [facility] Peripheral artery disease (Acute) 08/15/23 F/u Vascular Non-healing skin lesion (Acute) Hyperlipidemia, unspecified (Acute) Acute ischemic stroke (Acute 05/18/23) Occlusion of right vertebral artery (Acute) Carotid stenosis, bilateral (Chronic) I65.21 - Right-sided extracranial carotid artery stenosis Macrocytosis without anemia (Acute) Primary open angle glaucoma (POAG) of right eye, mild stage (Chronic) Cough (Acute) Tricuspid regurgitation (Acute) Beat, premature ventricular (Acute ~08/2022) 09/11/22 Cardiology 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 (Acute) Syncope (Chronic) Prolonged QT interval (Acute) Atrial tachycardia determined by electrocardiography (Acute) Internal hemorrhoids (Acute) Blood glucose abnormal (Acute 11/03/14) Trigger middle finger of right hand (Acute 04/25/16) Abdominal aortic aneurysm (AAA) 3.0 cm to 5.5 cm in diameter in male (Chronic) Found in October 2018, needs to be rechecked every 3 years Pure hypercholesterolemia (Chronic 01/31/12) goal LDL<70 Metabolic syndrome X (Chronic 02/15/13) goal 215# 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 s/p stenting x 5 2010 or 2011 at [facility] b. presenting symptom was primarily fatigue Hypertension (Chronic) Benign prostatic hypertrophy (Chronic) Atrial fibrillation (Chronic) I48.0 Paroxysmal atrial fibrillation 10/09/20 [facility] Cardiology Medical History Fall Orthostatic hypotension Elevated troponin I level Ischemic stroke Hx of colonic polyps H/O: urinary stone Surgical History S/P ablation of atrial fibrillation (10/2018) steriotactic brain bx (01/27/15) [facility] bx brain abscess R small trigger finger release (05/28/16) [place] Family History Mother , HF at age 89. Heart disease Father , stroke HBP at age 90. Essential hypertension Brother , heart at age 82. No problems noted. Brother No problems noted. 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 Pets and animals: No Sexually active: Yes Do you think of yourself as: straight/heterosexual Current gender identity: male What is your relationship status?: How often do you talk on the phone with friends or family?: three or more times per week How often do you get together with friends or relatives?: three or more times per week Do you belong to any clubs or organized social groups?: yes Panel score (0-1 are the most socially isolated patients): 3 What type of physical activity do you participate in: none Cassidy/Christianity: None Special cassidy needs: No Seatbelt use: always Drive intox or ride w/intox bus driver: No Working smoke detector in home: Yes Fire extinguisher in home: Yes Carbon monox detector in home: Yes Do you feel safe at home: Yes Do you feel safe in your relationship?: Yes PAWSS Have you Been Recently Intoxicated or Drunk Within the Last 30 days?: No Have you Ever Experienced Previous Episodes of Alcohol Withdrawal?: No Have you ever Experienced Withdrawal Seizures?: No Have you ever Experienced Delirium Tremens(DT)s?: No Have you ever undergone Alcohol Rehabilitation Treatment (i.e, inpt ot outpatient treatment programs)?: No Have you ever Experienced Blackouts?: No Have you ever Combined Alcohol with other Downers within the last 90 days?: No Have you ever Combined Alcohol with any other Substance of Abuse during the last 90 days?: No Positive Blood Alcohol level on Presentation? [PCS.BAL]: No Result: 0 Discharge Plan Disposition Patient Disposition: Admit to [facility] Condition: Serious Discharge Details Chief Complaint: RespSymp Clinical Impression: Sleep related hypoxia, CHF exacerbation, Acute hypokalemia Primary Care Provider: Camacho Barrera ED Provider: Dean Guerrero Home Meds and New Rx's Prescriptions: No Action timolol maleate 0.5 % gel forming solution 1 drp ophthalmic (eye) BID clotrimazole 1 % cream 1 applic topical BID Qty: 45 3RF atorvastatin 80 mg tablet 80 mg PO DAILY Patient Comments: TAKE ONE TABLET BY MOUTH EVERY EVENING clopidogrel 75 mg tablet 75 mg PO DAILY Hold Instructions: per [facility] diltiazem HCl 240 mg capsule,extended release 24hr 240 mg PO BID Qty: 0 0RF Patient Comments: TAKE ONE CAPSULE BY MOUTH EVERY MORNING lidocaine [Lidoderm] 5 % adhesive patch,medicated 1 patch topical DAILY Qty: 30 0RF Rx Instructions: leave on most painful area for up to 12 hrs
--- NOTE | 2024-01-20 21:13 | W.PM.HP.N ---
Date of service: 01/20/24 Time of Service: 21:15 Assessment and Plan Assessment and plan (1) CHF exacerbation: Status: Acute Assessment and plan: Mr. Flores's evaluation is notable for a 2 kilogram weight gain since his discharge a week ago, and an exam and chest imaging suggestion pulmonary edema, all suggesting heart failure. His symtoms are not typical for CHF, but the rapid evolution in association with the signs of CHF suggest they are related. He does have preserved LVEF on the echocardiogram last week. His BNaP is high, though not as high as last week when he had the rapid rate. He did seem to respond to the furosemide, continue IV diuresis. Monitor on telemetry Consider resuming some of the lisinpril as well as SGLT2i Given 3 admissions this month, request cardiology consult to help management (2) Sleep related hypoxia: Status: Acute Assessment and plan: This is clinically evolving acutely. Will observe if this continues to happen after diuresis. He should get a sleep study upon discharge. (3) Hypertension: Status: Chronic Assessment and plan: BP okay now, high on presentation. Monitor with diuresis. May resume at least 5mg lisinopril as above, which may help heart and will help potassium. (4) Acute hypokalemia: Status: Acute Assessment and plan: Given 20mEq in the ED. Developed after stopping LYNNE and getting furosemide at last admission. Give addition supplument and follow. (5) Atrial fibrillation: Status: Chronic Assessment and plan: Continue diltiazem for rate control He is off of DOAC due to recurrent severe nose bleeds, has f/u to consider watchman. Cardiology consult as above. (6) Coronary disease: Status: Chronic Assessment and plan: Continue high intensity statin and clopiogrel. (7) DVT prophylaxis: Status: Acute Assessment and plan: prophylactic LMWH (8) Discharge planning issues: Status: Acute Assessment and plan: He is observation status as I anticipate he will be able to be discharged after diuresis. History of Present Illness History of Present Illness Chief Complaint: short of breath Narrative: 78 yo M with history of atrial fibrillation, CAD s/p PCI/BRENDA x 5 in 2006, cardioembolic CVA in 2022, and 2 recent admissions with atrial fibrillation and RVR who is presenting with 3 days of recurrent episodes of difficulty breathing just after falling asleep. He was first admitted 2-02/21 with influenza infection associated with orthostatic hypotension related to diarrhea and dehydration. Lisinopril 20mg was held at that visit, but resumed by the PCP Dr. Barrera 01/08 at 10mg. Readmitted 01/12- for atrial fibrillation with RVR and CHF felt to be secondary to the atrial fibrillation. He was treated with furosemide while inpatient and diltaizem CD increased to 240mg BID upon discharge and lisinopril stopped again. He was discharged without a diuretic. For the past 3 days he has been experiencing difficulty breathing like someone smothering him each time he has tried to doze off. This happens lying in bed or in the recliner. He hasn't been able to sleep because of this. Wakes up gasping for air, has to breath deep. Doesn't happen while awake. He has been able to walk and do things around the house without feeling short of breath. No cough, fever, or other URI symptoms. No chest pain. He is able to lay down flat when he is awake. In the emergency room gasping for air was noted with he dozed off, and his oxygen dropped into the 80s. He has no known history of sleep apnea and has never had this kind of persistent gasping for air when trying to sleep. He was given 20mg IV furosemide in the ED and he states he is urinating a lot since then. Review of Systems Constitutional Constitutional: Denies anorexia, Denies chills, Denies fever(s), Reports lethargy and Reports weight gain (gaining some weight, but had lost when he had flu) Eyes Eyes: Denies change in vision and Denies irritation ENT Ears, Nose, Mouth, and Throat: Denies dizziness, Denies nasal congestion, Denies nasal discharge and Denies sore throat Cardiovascular Cardiovascular: Denies chest pain, Reports leg edema, Denies lightheadedness, Denies palpitations, Denies orthopnea and Reports paroxysmal nocturnal dyspnea Respiratory Respiratory: Denies cough, Denies hemoptysis, Denies excessive phlegm production and Denies wheezing Gastrointestinal Gastrointestinal: Denies abdominal pain, Denies melena, Denies hematochezia, Denies heartburn, Denies diarrhea and Denies vomiting Genitourinary Genitourinary: Denies hematuria, Denies dysuria and Denies urinary incontinence Integumentary/Breasts Skin/Breast: Denies rash and Denies skin ulcer Neurologic Neurologic: Denies confusion, Denies dizziness, Denies localized weakness, Denies sensory deficit and Denies tremor(s) Psychiatric Psychiatric: Denies confusion, Denies mood swings and Denies panic attacks Endocrine Endocrine: Denies palpitations Hematologic/Lymphatic Hematologic/Lymphatic: Denies easy bleeding Allergic/Immunologic Allergic/Immunologic: Denies wheezing PFSH All Active Problems (Updated 01/20/24 @ 22:58 by Micheal Luna) Discharge planning issues (Acute) DVT prophylaxis (Acute) Acute hypokalemia (Acute) CHF exacerbation (Acute) Sleep related hypoxia (Acute) Atrial fibrillation with RVR (Acute) CHF (congestive heart failure) (Chronic) Influenza A (Acute) Left rib fracture (Acute) Atherosclerosis of aorta (Chronic) Enlarged prostate (Acute) Low back pain (Acute) Atrial fibrillation (Chronic) History of left-sided carotid endarte[place] (Acute) [place] [facility] [place]ipheral artery disease (Acute) 08/15/23 F/u Vascular Non-healing skin lesion (Acute) Hyperlipidemia, unspecified (Acute) Acute ischemic stroke (Acute 05/18/23) Occlusion of right vertebral artery (Acute) Carotid stenosis, bilateral (Chronic) I65.21 - Right-sided extracranial carotid artery stenosis Macrocytosis without anemia (Acute) Primary open angle glaucoma (POAG) of right eye, mild stage (Chronic) Tricuspid regurgitation (Acute) Beat, premature ventricular (Acute ~08/2022) 09/11/22 Cardiology 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 (Acute) Syncope (Chronic) Internal hemorrhoids (Acute) Trigger middle finger of right hand (Acute 04/25/16) Abdominal aortic aneurysm (AAA) 3.0 cm to 5.5 cm in diameter in male (Chronic) Found in October 2018, needs to be rechecked every 3 years Pure hypercholesterolemia (Chronic 01/31/12) goal LDL<70 Metabolic syndrome X (Chronic 02/15/13) goal 215# 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 s/p stenting x 5 2010 or 2011 at [facility] b. presenting symptom was primarily fatigue Hypertension (Chronic) Benign prostatic hypertrophy (Chronic) Atrial fibrillation (Chronic) I48.0 Paroxysmal atrial fibrillation 10[place]09/20 [facility] [place] Medical History (Updated 01/20/24 @ 22:58 by Micheal Luna) Fall Orthostatic hypotension Elevated troponin I level Ischemic stroke Hx of colonic polyps H/O: urinary stone Surgical History (Updated 01/20/24 @ 22:58 by Micheal Luna) S/P carotid endarterectomy S/P ablation of atrial fibrillation (10/2018) steriotactic brain bx (01/27/15[place] [facility] [place] R small trigger finger release (05/28/16) [place] Family History Mother , HF at age 89. Heart disease Father , stroke HBP at age 90. Essential hypertension Brother , heart at age 82. No problems noted. Brother No problems noted. Social History (Updated 01/20/24 @ 22:10 by Micheal Luna) Smoking/Tobacco Use Status: Never Smoking risk assessment performed?: Yes Alcohol Intake: current Alcohol Intake frequency: 0-2 drinks per day Alcohol type: hard liquor Drug use: Never Substance use type: does not use Counseling given: No Adopted: No Caregiver/Support person: No Foster care: No Household members: spouse Housing: house Number of Children: 6 number of grandchildren: 13 Communication Needs: None and Corrective Lenses Education Level: college Details: Bachelor's degree Do you need help understanding health information?: Never 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 Pets and animals: No Sexually active: Yes Do you think of yourself as: straight/heterosexual Current gender identity: male What is your relationship status?: How often do you talk on the phone with friends or family?: three or more times per week How often do you get together with friends or relatives?: three or more times per week Do you belong to any clubs or organized social groups?: yes Panel score (0-1 are the most socially isolated patients): 3 What type of physical activity do you participate in: none Cassidy/Anabaptism: None Special cassidy needs: No Seatbelt use: always Drive intox or ride w/intox driver license examiner: No Working smoke detector in home: Yes Fire extinguisher in home: Yes Carbon monox detector in home: Yes Do you feel safe at home: Yes Do you feel safe in your relationship?: Yes Additional Social history: 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 Lives with Kisha in [facility] Allergies and Home Medications Allergies Allergy/AdvReac Type Severity Reaction Status Date / Time venom-honey bee Allergy Severe HIVES Verified 01/20/24 16:11 [bee venom (honey bee)] TACHYCARDIA Penicillins Allergy Intermediate HIVES Verified 01/20/24 16:11 levetiracetam [From Keppra] AdvReac Severe leukopenia Verified 01/20/24 16:11 prednisone AdvReac Severe rectal Verified 01/20/24 16:11 bleeding and diarrhea aspirin AdvReac Intermediate Nosebleeds Verified 01/20/24 16:11 ceftriaxone AdvReac Intermediate Leukopenia Verified 01/20/24 16:11 simvastatin AdvReac Intermediate LEG PAIN Verified 01/20/24 16:11 DR MCLEOD SHRIMP Allergy Intermediate HIVES , Uncoded 01/20/24 16:11 NAUSEA Home Medications Medication Instructions Recorded Confirmed Type timolol maleate 0.5 % eye gel 1 drp ophthalmic (eye) BID 05/08/23 01/20/24 History forming solution clotrimazole 1 % topical cream 1 applic topical BID #45 grams 06/27/23 01/20/24 Rx clopidogrel 75 mg tablet 75 mg PO DAILY 07/17/23 01/20/24 History atorvastatin 80 mg tablet 80 mg PO DAILY 01/01/24 01/20/24 History diltiazem HCl 240 mg 240 mg PO BID #0 caps 01/13/24 01/20/24 Rx capsule,extended release 24 hr lidocaine 5 % topical patch 1 patch topical DAILY #30 ea 01/13/24 01/20/24 Rx (Lidoderm) Exam Narrative Exam Narrative: GEN: Alert and oriented, pleasant and cooperative, gives linear history. No acute distress at rest. HEENT: Head atraumatic. Conjunctiva clear, no icterus. PEERL, EOMI. no rhinorrhea. MMM, OP benign. Neck is supple with no masses or lymphadenopathy, trachea midline LUNGS: Crackles 1/4 up posterior lung jones bilaterally. No wheeze, good air movement. Normal effort at rest, speaks in full sentances. CV: irregularly irregular with no murmurs, gallops, or rubs. no increased JVD ABD: +BS, soft, NT/ND EXT: no cyanosis, clubbing. 1+ pitting edema to shins bilaterally MSK: No joint redness or swelling NEURO: CN 2-12 grossly intact. Normal movement of 4 extremities. Normal speech and coordination SKIN: No rashes or open wounds. PSYCH: normal mood and affect Results Imaging Chest x-ray: report reviewed and image reviewed (increased vascular congestion and small bilateral effusions, cardiomegaly) Additional studies: TTE 01/13/24: LVEF 55-60%, nl left and right ventricular size/walll thickness, gary moderate atrial enlargement, RVSP 38 EKG: report reviewed and image reviewed (atrial fibrillation rate 91, non-specific t-wave abnormalities, no ischemic ST changes) Labs 01/20/24 16:50 01/20/24 16:50 Labs: Laboratory Results - last 24 hr 01/20/24 01/20/24 16:50 16:58 WBC 8.49 RBC 4.31 L Hgb 13.7 Hct 41.2 MCV 96 H MCH 31.8 MCHC 33.3 RDW 13.4 Plt Count 312 MPV 10.6 Immature Gran % 0.5 Neutrophils % 64.9 Lymphocytes % 15.4 Monocytes % 10.7 Eosinophils % 7.8 Basophils % 0.7 Nucleated RBC % 0.0 Absolute Neutrophils 5.51 Absolute Lymphocytes 1.31 Absolute Monocytes 0.91 H Absolute Eosinophils 0.66 Absolute Basophils 0.06 VBG pH 7.42 H VBG pCO2 43 VBG pO2 32 VBG HCO3 28 VBG Total CO2 25 VBG O2 Saturation 60 VBG Base Excess 3 Sodium 143 Potassium 3.3 L Chloride 106 Carbon Dioxide 27.3 Anion Gap 9.7 BUN 24 H Creatinine 0.9 Est GFR (CKD-EPI 2020) 87.42 Glucose 114 H Calcium 9.5 Magnesium 2.0 Total Bilirubin 1.1 H AST 15 ALT 26 Alkaline Phosphatase 130 H NT-Pro-B Natriuret Pep 938 H Total Protein 7.7 Albumin 3.6 Last Vital Signs Temp 36.5 C 01/20/24 16:29 Pulse 119 H 01/20/24 20:10 Resp 16 01/20/24 20:10 BP 134/78 01/20/24 20:10 Pulse Ox 98 01/20/24 20:10 PAWSS Have you Been Recently Intoxicated or Drunk Within the Last 30 days?: No Have you Ever Experienced Previous Episodes of Alcohol Withdrawal?: No Have you ever Experienced Withdrawal Seizures?: No Have you ever Experienced Delirium Tremens(DT)s?: No Have you ever undergone Alcohol Rehabilitation Treatment (i.e, inpt ot outpatient treatment programs)?: No Have you ever Experienced Blackouts?: No Have you ever Combined Alcohol with other Downers within the last 90 days?: No Have you ever Combined Alcohol with any other Substance of Abuse during the last 90 days?: No Positive Blood Alcohol level on Presentation? [PCS.BAL]: No Result: 0 Time Spent Time spent with Patient: 55-74 minutes Time was spent: preparing to see the patient(eg.review tests), obtaining and/or reviewing separately otained hiistory, ordering medications,tests, procedures, referring, communicating with other health customer care representative, indepentently interpreting results and counseling the patient
[2024-01-20] MEDS: dilTIAZem CD 120 MG CAPCR 240 MG PO (22:22)
[2024-01-20] MEDS: Atorvastatin 40 MG TAB 80 MG PO (22:22)
[2024-01-20] MEDS: Normal Saline Flush 10 ML SYR IVP ×2 (22:22)
[2024-01-20] MEDS: Enoxaparin 40 MG/0.4 ML SYR SC (23:37)
[2024-01-21] VITALS (7 sets, daily range): BP systolic 99–129; BP diastolic 61–81; PULSE 71–103; RESP 14–20; TEMP 36.4–36.8; O2SAT 94–98
[2024-01-21] MEDS: Lisinopril 10 MG TAB PO (00:04)
[2024-01-21] MEDS: POTASSIUM CHLORIDE 20 MEQ/100 ML BAG 50 MEQ IVPB (01:48)
[2024-01-21 07:03] LABS: Anion Gap 8.3 mmol/L (3-11); BUN 17 mg/dL (7-18); CO2 27.7 mmol/L (21.0-32.0); CREATININE 0.7 mg/dL (0.70-1.30); Calcium 9.4 mg/dL (8.5-10.1); Chloride 106 mmol/L (98-107); Estimated GFR 94.31 (mL/min/1.73m2); Glucose 112 mg/dL (74-106); Potassium 4.3 mmol/L (3.5-5.1); Sodium 142 mmol/L (136-145)
[2024-01-21] MEDS: Furosemide 20 MG/2 ML VIAL IVP ×2 (08:13→16:43)
[2024-01-21] MEDS: Normal Saline Flush 10 ML SYR IVP ×3 (08:14→20:08)
--- NOTE | 2024-01-21 08:26 | NUR.NOTE ---
Nursing Note: LATE ENTRY PT WENT TO THE FLOOR THE ED WITH K+ INFUSING
[2024-01-21] MEDS: Potassium Chloride 20 MEQ TABCR PO (08:40)
[2024-01-21] MEDS: Clopidogrel 75 MG TAB PO (08:40)
[2024-01-21] MEDS: Lisinopril 5 MG TAB PO (08:41)
[2024-01-21] MEDS: Timolol 0.5% 5 ML BTL OP ×2 (08:41→20:04)
[2024-01-21] MEDS: dilTIAZem CD 120 MG CAPCR 240 MG PO ×2 (09:18→20:03)
--- NOTE | 2024-01-21 16:52 | PHA.REVIEW2 ---
Pharmacy Admission Review Admission Clinical Review Admission Pharmacy Review: Discharge planning issues (Acute) DVT prophylaxis (Acute) Acute hypokalemia (Acute) CHF exacerbation (Acute) Sleep related hypoxia (Acute) venom-honey bee [bee venom (honey bee)] Allergy (Severe, Verified 01/20/24 16:11) HIVES TACHYCARDIA Penicillins Allergy (Intermediate, Verified 01/20/24 16:11) HIVES levetiracetam [From Keppra] Adverse Reaction (Severe, Verified 01/20/24 16:11) leukopenia prednisone Adverse Reaction (Severe, Verified 01/20/24 16:11) rectal bleeding and diarrhea aspirin Adverse Reaction (Intermediate, Verified 01/20/24 16:11) Nosebleeds ceftriaxone Adverse Reaction (Intermediate, Verified 01/20/24 16:11) Leukopenia simvastatin Adverse Reaction (Intermediate, Verified 01/20/24 16:11) LEG PAIN DR MCLEOD SHRIMP Allergy (Intermediate, Uncoded 01/20/24 16:11) HIVES , NAUSEA Resuscitation Status Full Code Height 6 ft 1 in Weight 92.8 kg Pharmacy Admission Review Renal Dosing Renal Dosing: BUN 17 mg/dL (7-18) 01/21/24 06:24 Creatinine 0.7 mg/dL (0.70-1.30) 01/21/24 06:24 Medications needing adjustments: Reviewed (CrCl 79.9 mL/min) Anticoagulation Anticoagulation: Hgb 13.7 g/dL (13.5-17.5) 01/20/24 16:50 Hct 41.2 % (40.0-50.0) 01/20/24 16:50 Plt Count 312 10^3/uL (130-400) 01/20/24 16:50 Creatinine 0.7 mg/dL (0.70-1.30) 01/21/24 06:24 DVT Prophylaxis: Reviewed Medications: Enoxaparin (40mg q24h) Relevant Labs Relevant Labs: Sodium 142 mmol/L (136-145) 01/21/24 06:24 Potassium 4.3 mmol/L (3.5-5.1) D 01/21/24 06:24 Chloride 106 mmol/L (98-107) 01/21/24 06:24 Magnesium 2.0 mg/dL (1.8-2.4) 01/20/24 16:50 Electrolytes, C-Reactive P, ESR: Reviewed (Glucose 112) Cardiac Review Cardiac Review: NT-Pro-B Natriuret Pep 938 pg/mL (<300) H 01/20/24 16:50 BP, HR, EF%: Reviewed (HR WNL, BP 99/61) QTc Review QTc: Reviewed (502 from 01/12/24) IV to PO Switch IV Medications: Reviewed (IV furosemide) Home Meds Home Med List reviewed: Reviewed Relevent Home Meds Not ordered & why?: Clotrimazole Current Meds Current Medication Order Review: Reviewed
--- NOTE | 2024-01-21 19:15 | INITIAL_ITS ---
Date of service: 01/21/24 Time of Service: 19:17 Care Management Initial Assmt Initial Assessment REASON FOR HOSPITALIZATION:: CHF, hypoxia PREVIOUS FUNCTIONAL STATUS/SOCIAL/FAMILY SUPPORTS:: Tomas lives in [facility] with his , Kisha. Together, they have six children. He has four of his own, she has one of her own, and they have one together. Both he and his were twice before, but they have now been for 47 years. His 's daughter and two of their grandchildren are living with Tomas and his currently. His son Amadeo lives nearby, and is very supportive. 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 He is independent with his ADL's at baseline. CURRENT FUNCTIONAL STATUS:: Tomas was sitting up in bed when CM met with him. He stated that he is feeling good. Tomas and CM discussed his multiple admissions, as he has been hospitalized three times now in one month. He stated that he feels that it is due to his medications being changed multiple times, which has been confusing. He reported that he has a follow up scheduled with his PCP on January 29. CM will continue to follow. ADVANCE DIRECTIVES:: On file; Kisha (spouse) listed as [employer]. Michellekriss Gilman listed as alternate agent. Has patient been provided with info about the portal/API?: Yes Did the patient sign up for the portal?: Yes CODE STATUS:: Full Code INSURANCE COVERAGE / FINANCIAL ISSUES:: VBA CURRENT HOME/COMMUNITY SERVICES/EQUIPMENT:: No current services or equipment PRIMARY CARE PHYSICIAN:: Camacho Barrera POTENTIAL DISCHARGE NEEDS:: Follow up appointments PATIENT/FAMILY EDUCATION NEEDS:: Review discharge instructions and limitations, discussion of self care needs including ask me three. ANTICIPATED BARRIERS TO DISCHARGE:: None TRANSPORTATION:: Via private vehicle by family PLAN:: Tomas will return home once medically cleared. His son will drive him home via private vehicle. He will follow up with his PCP and discharge plan of care. CM will continue to follow. PFSH All Active Problems (Updated 01/20/24 @ 22:58 by Micheal Luna) Discharge planning issues (Acute) DVT prophylaxis (Acute) Acute hypokalemia (Acute) CHF exacerbation (Acute) Sleep related hypoxia (Acute) Atrial fibrillation with RVR (Acute) CHF (congestive heart failure) (Chronic) Influenza A (Acute) Left rib fracture (Acute) Atherosclerosis of aorta (Chronic) Enlarged prostate (Acute) Low back pain (Acute) Atrial fibrillation (Chronic) History of left-sided carotid endarterectomy (Acute) 07/16/2023 at [facility] [place] Peripheral artery disease (Acute) 08/15/23 F/u Vascular Non-healing skin lesion (Acute) Hyperlipidemia, unspecified (Acute) Acute ischemic stroke (Acute 05/18/23) Occlusion of right vertebral artery (Acute) Carotid stenosis, bilateral (Chronic) I65.21 - Right-sided extracranial carotid artery stenosis Macrocytosis without anemia (Acute) Primary open angle glaucoma (POAG) of right eye, mild stage (Chronic) Tricuspid regurgitation (Acute) Beat, premature ventricular (Acute ~08/2022) 09/11/22 Cardiology 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 (Acute) Syncope (Chronic) Internal hemorrhoids (Acute) Trigger middle finger of right hand (Acute 04/25/16) Abdominal aortic aneurysm (AAA) 3.0 cm to 5.5 cm in diameter in male (Chronic) Found in October 2018, needs to be rechecked every 3 years Pure hypercholesterolemia (Chronic 01/31/12) goal LDL<70 Metabolic syndrome X (Chronic 02/15/13) goal 215# 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 s/p stent[facility] x 5 [facility]. presenting symptom was primarily fatigue Hypertension (Chronic) Benign prostatic hypertrophy (Chronic) Atrial fibrillation (Chronic) I48.0 Paroxysmal atrial fibrillation 10/09/20 [facility] [place] Cardiology Medical History (Updated 01/20/24 @ 22:58 by Micheal Luna) Fall Orthostatic hypotension Elevated troponin I level Ischemic stroke Hx of colonic polyps H/O: urinary stone Surgical History (Updated 01/20/24 @ 22:58 by Micheal Luna) S/P carotid endarterectomy S/P ablation of atrial fibrillation (10/2018) steriotactic brain bx (01/27/15) [facility] [place] bx brain abscess R small trigger finger release (05/28/16) [place] Family History Mother , HF at age 89. Heart disease Father , stroke HBP at age 90. Essential hypertension Brother , heart at age 82. No problems noted. Brother No problems noted. Social History (Updated 01/20/24 @ 22:10 by Micheal Luna) Smoking/Tobacco Use Status: Never Smoking risk assessment performed?: Yes Alcohol Intake: current Alcohol Intake frequency: 0-2 drinks per day Alcohol type: hard liquor Drug use: Never Substance use type: does not use Counseling given: No Adopted: No Caregiver/Support person: No Foster care: No Household members: spouse Housing: house Number of Children: 6 number of grandchildren: 13 Communication Needs: None and Corrective Lenses Education Level: college Details: Bachelor's degree Do you need help understanding health information?: Never 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 Pets and animals: No Sexually active: Yes Do you think of yourself as: straight/heterosexual Current gender identity: male What is your relationship status?: How often do you talk on the phone with friends or family?: three or more times per week How often do you get together with friends or relatives?: three or more times per week Do you belong to any clubs or organized social groups?: yes Panel score (0-1 are the most socially isolated patients): 3 What type of physical activity do you participate in: none Cassidy/Catholic: None Special cassidy needs: No Seatbelt use: always Drive intox or ride w/intox hazmat tanker driver: No Working smoke detector in home: Yes Fire extinguisher in home: Yes Carbon monox detector in home: Yes Do you feel safe at home: Yes Do you feel safe in your relationship?: Yes Additional Social history: 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 Lives with Kisha in [facility]. Readmission Within the Past 30 Days Yes or No: Yes Date of First Admission Date of 1st Admission: 01/12/24 Date of this Admission Date of Admission: 01/20/24 This admission was: Through ED Office Visit Since 1st Admission Have you seen your PCP in the office since discharge?: No Date of PCP Appointment: 01/30/24 Date of Scheduled Appointment: 01/30/24 I. Interview patient and/or Family Difficulty reaching your doctor or getting an office appt?: No Have you had trouble purchasing/ or taking medication?: Yes Describe barriers fpr purchasing or taking medication: Recent confusion about medication changes How do you take your medications and set up your pills?: independently Have you had trouble with getting meals at home?: No Did you feel ready for discharge when you left the last time: Yes Reason there were no orders at discharge: not indicated Did you call your physician beore you came to the ED?: Yes Did your physician tell you to come in?: Yes How do you think you became sick enough to come back?: [place] short of breath, falling asleep and waking up suddenly, gasping for air. ED visits How many ED visits in the past 12 months: 11 Assessment for Readmission Summary of readmission circumstances, based upon interviews: Tomas reports that he felt ready for discharge on his previous two admissions, all within this month. He feels that he has had some confusion with medications being changed, specifically with two medications with similar names. He stated that he would like to resume taking the previous medication that he felt worked well for over 20 years. Tomas described this admission being due to a separate concern; when he is falling asleep, he will just nod off, and will wake suddenly, feeling short of breath. He is unsure what is causing this, but is interested in learning more. Tomas reports that he is very independent at baseline, and is enjoying his residential. He is looking forward to returning home and does not expect to require services upon discharge. SDOH(Care Management) Screening Will the Patient Participate in the Screening?: Yes Do you worry about having a steady place to live?: no Problems where you live: no known problems In the past 12 months, have you had to go without electric, gas, oil or water in your home?: no Have you or anyone in your house had to go without enough food to eat?: no Has lack of transportation kept you from medical appointments or from doing things needed for daily living?: no Has anyone in your support network made you feel unsafe for any reason?: no
--- NOTE | 2024-01-21 19:32 | W.PM.PROGNOT ---
Date of Service Date of service: 01/21/24 Time of Service: 19:32 Assessment and Plan Assessment and plan (1) CHF exacerbation: Status: Acute Assessment and plan: Likely diastolic/rate related CHF in addition to a component of mild pulmonary hypertension. Continue IV furosemide through tomorrow am. Monitor I/Os and daily weights. Monitor on tele. (2) Sleep related hypoxia: Status: Acute Assessment and plan: will again monitor tonight. Agree with a sleep study as outpatient. (3) Hypertension: Status: Chronic Assessment and plan: BP on the low side this afternoon. Will monitor overnight prior to making decisions for further diuresis. (4) Acute hypokalemia: Status: Resolved Assessment and plan: Recheck in am (5) Atrial fibrillation: Status: Chronic Assessment and plan: Rate controlled. Continue diltiazem. Not on anticoagulation due to nose bleeds. Awaiting Watchman's procedure. (6) Coronary disease: Status: Chronic Assessment and plan: Continue high intensity statin and clopidogrel. (7) DVT prophylaxis: Status: Acute Assessment and plan: enoxaparin (8) Discharge planning issues: Status: Acute Assessment and plan: Anticipate discharge home tomorrow. Full code. Subjective Subjective Interval history since last seen: Mr Flores is feeling better. Denies dizziness, CP, states SOB is better - and he is on RA. Denies n/v. Having fewer episodes of being unable to catch his breath. He told me he is wondering if one of the episodes that woke him up at night was related to a panic attack from lidocaine patches. I did discuss with him how it was more likely to have been PND than lidocaine patches causing panic attacks. Exam Narrative Exam Narrative: General: A very pleasant elderly male who is A&Ox3, sitting up comfortably in bed, on RA, no dyspnea/tachypnea/cyanosis HEENT: EOMI, MMM Heart: irregularly irregular rhythm, no m/r/g Lungs: crackles at B bases, L>R Abdomen: soft, nontender, nondistended Extremities: no edema BLEs Objective Last Vital Signs Temp 36.6 C 01/21/24 11:12 Pulse 71 01/21/24 11:12 Resp 20 01/21/24 11:12 BP 99/61 L 01/21/24 11:12 Pulse Ox 96 01/21/24 11:12 Laboratory Results - last 24 hr 01/21/24 06:24 Sodium 142 Potassium 4.3 D Chloride 106 Carbon Dioxide 27.7 Anion Gap 8.3 BUN 17 Creatinine 0.7 Est GFR (CKD-EPI 2020) 94.31 Glucose 112 H Calcium 9.4 Objective Narrative Objective Narrative: Echo 01/13/24: LVEF 55-60%. RVSP 38 mmHg. PAWSS Have you Been Recently Intoxicated or Drunk Within the Last 30 days?: No Have you Ever Experienced Previous Episodes of Alcohol Withdrawal?: No Have you ever Experienced Withdrawal Seizures?: No Have you ever Experienced Delirium Tremens(DT)s?: No Have you ever undergone Alcohol Rehabilitation Treatment (i.e, inpt ot outpatient treatment programs)?: No Have you ever Experienced Blackouts?: No Have you ever Combined Alcohol with other Downers within the last 90 days?: No Have you ever Combined Alcohol with any other Substance of Abuse during the last 90 days?: No Positive Blood Alcohol level on Presentation? [PCS.BAL]: No Result: 0 Time Spent with Patient Time Spent with Patient: 25-34 minutes Time was spent: preparing to see the patient(eg.review tests), obtaining and/or reviewing separately otained hiistory, ordering medications,tests, procedures, referring, communicating with other health care management assistant, indepentently interpreting results, counseling the patient and care coordination
[2024-01-21] MEDS: Atorvastatin 40 MG TAB 80 MG PO (20:04)
[2024-01-21] MEDS: Patch Removal LIDOCAINE 1 EACH TP (20:04)
[2024-01-21] MEDS: Enoxaparin 40 MG/0.4 ML SYR SC (21:30)
[2024-01-22 02:59] VITALS: BP 115/79; PULSE 64; RESP 18; TEMP 36; O2SAT 96
[2024-01-22 06:35] LABS: Abs Immature Grans 0.03 10^3/uL (0.0-0.06); Absolute Basophil Count 0.05 10^3/uL (0.0-0.2); Absolute Eosinophil Count 0.93 10^3/uL (0.0-0.7); Absolute Lymphocyte Count 1.56 10^3/uL (1.2-3.4); Absolute Monocyte Count 0.77 10^3/uL (0.1-0.8); Absolute Neutrophil Count 4.13 10^3/uL (1.2-6.7); Basophils % 0.7; Eosinophils % 12.4; HCT 38.1 % (40.0-50.0); HGB 13.1 g/dL (13.5-17.5); Immature Grans % 0.4; Lymphocytes % 20.9; MCH 32.8 pg (27.0-33.0); MCHC 34.4 % (32.0-36.0); MCV 96 fL (80-95); MPV 10.7 fL (8.0-11.0); Monocytes % 10.3; Neutrophils % 55.3; Platelet Count 264 10^3/uL (130-400); RBC 3.99 10^6/uL (4.36-5.78); RDW 13.4 % (11.8-14.1); RDW-SD 47.3 fL; WBC 7.47 10^3/uL (4.4-10.8)
[2024-01-22 07:00] LABS: Anion Gap 6.7 mmol/L (3-11); BUN 23 mg/dL (7-18); CO2 28.3 mmol/L (21.0-32.0); CREATININE 0.9 mg/dL (0.70-1.30); Calcium 9.3 mg/dL (8.5-10.1); Chloride 104 mmol/L (98-107); Estimated GFR 87.42 (mL/min/1.73m2); Glucose 120 mg/dL (74-106); Potassium 4.2 mmol/L (3.5-5.1); Sodium 139 mmol/L (136-145)
[2024-01-22 07:41] VITALS: BP 108/64; PULSE 45; RESP 16; TEMP 36; O2SAT 98
[2024-01-22] MEDS: dilTIAZem CD 120 MG CAPCR 240 MG PO (08:21)
[2024-01-22] MEDS: Furosemide 20 MG/2 ML VIAL IVP (08:21)
[2024-01-22] MEDS: Potassium Chloride 20 MEQ TABCR PO (08:22)
[2024-01-22] MEDS: Lisinopril 5 MG TAB PO (08:22)
[2024-01-22] MEDS: Clopidogrel 75 MG TAB PO (08:22)
[2024-01-22] MEDS: Normal Saline Flush 10 ML SYR IVP (08:23)
[2024-01-22] MEDS: Timolol 0.5% 5 ML BTL OP (10:15)
--- NOTE | 2024-01-22 10:50 | DSE_ITS ---
Date of service: 01/22/24 Time of Service: 10:51 DS: Diagnosis Discharge Diagnosis (1) CHF exacerbation: Status: Acute Asessment and Plan: CHFpEF Pulmonary hypertension with RVSP of 38.4 mmHg (2) Sleep related hypoxia: Status: Acute (3) Hypertension: Status: Chronic (4) Acute hypokalemia: Status: Resolved (5) Atrial fibrillation: Status: Chronic (6) Coronary disease: Status: Chronic Discharge Plan Disposition Patient Disposition: Home Condition: Good Discharge Details Reason For Visit: CHF, Hypoxia Admit Date/Time: 01/20/24 18:55 Admit Provider: Micheal Luna Attending Provider: Micheal Luna Primary Care Provider: Camacho Barrera [facility] Hospital Course: Mr. Flores is a 78-year-old male with past medical history of paroxysmal A-fib, not on anticoagulation due to nosebleeds in the past, as well as coronary artery disease status post PCI with drug-eluting stents x 5 in 2006, cardioembolic stroke in 2022, history of brain abscess, who was a patient on [facility] hospitalist service from January until January for acute exacerbation of his chronic congestive heart failure with preserved ejection fraction with evidence of pulmonary hypertension. The patient did not require oxygen when he was awake, but did require a liter of oxygen when asleep, desaturating to the 80s on room air in the emergency department. He was diuresed with intravenous furosemide. He was quite hypertensive on presentation with blood pressures as high as 173/103. For this he was initiated on lisinopril 5 mg daily but with this therapy in addition to his home Cardizem and diuresis his systolics did drop to low 100s. For this reason, he is being discharged on lisinopril 2.5 mg daily diltiazem 240 mg p.o. twice daily, as prior to admission, as well as Lasix 20 mg p.o. daily. He was able to be weaned off of oxygen and passed exercise oximetry testing on room air prior to discharge. He is medically stable for discharge home today. He was advised to follow low-sodium diet and weigh himself daily, recording his weights and notifying his primary care provider if he gains 3 pounds or greater in 3 days. He should have blood work (chemistry) done in 1 week; the results should go to his PCP. Because a cardiac event recorder that was ordered on his prior discharge had not yet been placed on the patient, we are going to place this on him today prior to discharge. He is being referred to the sleep clinic for an outpatient sleep study. Care for patient as well as completion of his discharge summary on the day of discharge took 45 minutes. Home Meds and New Rx's Prescriptions: New furosemide 20 mg Tablet 20 mg PO DAILY Qty: 10 0RF lisinopril 2.5 mg tablet 2.5 mg PO DAILY Qty: 30 0RF Continued timolol maleate 0.5 % gel forming solution 1 drp ophthalmic (eye) BID clotrimazole 1 % cream 1 applic topical BID Qty: 45 3RF atorvastatin 80 mg tablet 80 mg PO DAILY Patient Comments: TAKE ONE TABLET BY MOUTH EVERY EVENING clopidogrel 75 mg tablet 75 mg PO DAILY Hold Instructions: per [facility] [place] diltiazem HCl 240 mg capsule,extended release 24hr 240 mg PO BID Qty: 0 0RF Patient Comments: TAKE ONE CAPSULE BY MOUTH EVERY MORNING lidocaine [Lidoderm] 5 % adhesive patch,medicated 1 patch topical DAILY Qty: 30 0RF Rx Instructions: leave on most painful area for up to 12 hrs Discharge Instructions Instructions: Furosemide (By mouth), Heart Failure (DC), Low-Sodium Diet (DC), Sleep Study (GEN) Additional Instructions: Follow a two gram sodium diet. Weigh yourself every day and record your weights. Call your PCP if you notice that you have gained 3 lbs or greater in 3 days. Bloodwork in 1 week. Return to the hospital with any fever, bleeding chest pain, or shortness of br eath. Referrals: SLEEP CLINIC[facility] [OTHER] - Camacho Barrera DO [Primary Care Provider] - Activity:: Activity as Tolerated Equipment/Supplies:: cardiac event recorder Diet:: Low Sodium Discharge Orders Discharge Orders: Discharge Order (Routine); Ordered 01/22/24 Ordered By: Liliana Ewing Other Ambulatory Orders: Basic Metabolic Panel (Routine) Timeframe: 1 Week Facility: [facility] - Location: Laboratory Outpatient - [place] Ordered By: Liliana Ewing Cardiac Event Recorder (Routine) Timeframe: 1 Day Facility: [facility] - Location: Respiratory Therapy Ordered By: Liliana Ewing DS: Summary Time Spent with Patient providing and/or coordinating discharge services: Greater than 30 minutes Status at Discharge Functional status at discharge: independent ambulation Overall status at discharge: patient is back to baseline Mental Status: mental status grossly normal Speech and Movement: speech and movement normal Mood: congruent mood Affect: normal affect Quality:SDOH Health Related Social Needs: Health related social needs risk of homeless Exam Narrative Exam Narrative: General: A very pleasant elderly male who is A&Ox3, sitting up comfortably in bed, on RA, no dyspnea/tachypnea/cyanosis HEENT: EOMI, MMM Heart: irregularly irregular rhythm, no m/r/g Lungs: crackles at B bases, improved Abdomen: soft, nontender, nondistended Extremities: no edema BLEs Psych Mental Status: mental status grossly normal Speech and Movement: speech and movement normal Mood: congruent mood Affect: normal affect DS: Data Vitals/I&O Vitals and I&O: Vital Signs Temperature 36.0 C L 01/22/24 07:41 Temperature Source Tympanic 01/22/24 07:41 Pulse 45 L 01/22/24 07:41 Pulse Rhythm Irregular 01/22/24 00:28 Pulse 98 H 01/20/24 16:46 Respiratory Rate 16 01/22/24 07:41 Respiratory Effort Normal, Non-Labored 01/22/24 00:28 Respiratory Depth Normal 01/22/24 00:28 Respiratory Pattern Normal 01/22/24 00:28 Blood Pressure 108/64 01/22/24 07:41 Blood Pressure Mean 125 01/20/24 16:46 Blood Pressure Position Sitting 01/20/24 16:29 Pulse Oximetry 98 01/22/24 07:41 Oxygen Delivery Method Room Air 01/22/24 07:41 Oxygen Flow Rate 0 01/22/24 07:41 Pain Level 0 01/22/24 07:41 Comment pt states he had dozed off and felt the shortness of breath. RN obtained O2 reading, HR and BP 01/20/24 23:16 Intake & Output 01/21/24 01/21/24 01/22/24 11:59 23:59 11:59 Intake Total 650 / 830 180 / 830 180 / 180 Output Total 1725 / 3275 1550 / 3275 750 / 750 Balance -1075 / -2445 -1370 / -2445 -570 / -570 Weight 92.8 kg 90.9 kg Intake: IV 100 / 100 Oral 550 / 730 180 / 730 180 / 180 Output: Urine 1725 / 3275 1550 / 3275 750 / 750 Other: Urine Color Pale Yellow Yellow Yellow Urine Appearance Clear Clear Clear Urine Odor Normal Normal None Stool Size Small Moderate Stool Characteristics Soft Soft Brown Voiding Methods Urinal Urinal Toilet Data Completed and Pending Pending studies at discharge: CXR: 1. Cardiomegaly. 2. Mild pulmonary venous congestion and small pleural effusions. Labs on day of discharge: Labs from last 24 hours 01/22/24 06:08 WBC 7.47 RBC 3.99 L Hgb 13.1 L Hct 38.1 L MCV 96 H MCH 32.8 MCHC 34.4 RDW 13.4 Plt Count 264 MPV 10.7 Immature Gran % 0.4 Neutrophils % 55.3 Lymphocytes % 20.9 Monocytes % 10.3 Eosinophils % 12.4 Basophils % 0.7 Nucleated RBC % 0.0 Absolute Neutrophils 4.13 Absolute Lymphocytes 1.56 Absolute Monocytes 0.77 Absolute Eosinophils 0.93 H Absolute Basophils 0.05 Sodium 139 Potassium 4.2 Chloride 104 Carbon Dioxide 28.3 Anion Gap 6.7 BUN 23 H Creatinine 0.9 Est GFR (CKD-EPI 2020) 87.42 Glucose 120 H Calcium 9.3 Magnesium 2.0 PFSH All Active Problems (Updated 01/21/24 @ 19:42 by Liliana Ewing MD) Discharge planning issues (Acute) DVT prophylaxis (Acute) CHF exacerbation (Acute) Sleep related hypoxia (Acute) Atrial fibrillation with RVR (Acute) CHF (congestive heart failure) (Chronic) Influenza A (Acute) Left rib fracture (Acute) Atherosclerosis of aorta (Chronic) Enlarged prostate (Acute) Low back pain (Acute) Atrial fibrillation (Chronic) History of left-sided carotid endarterectomy (Acute) 07/16/2023 at [facility] [place] Peripheral artery disease (Acute) 08/15/23 F/u Vascular Non-healing skin lesion (Acute) Hyperlipidemia, unspecified (Acute) Acute ischemic stroke (Acute 05/18/23) Occlusion of right vertebral artery (Acute) Carotid stenosis, bilateral (Chronic) I65.21 - Right-sided extracranial carotid artery stenosis Macrocytosis without anemia (Acute) Primary open angle glaucoma (POAG) of right eye, mild stage (Chronic) Tricuspid regurgitation (Acute) Beat, premature ventricular (Acute ~08/2022) 09/11/22 Cardiology 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 (Acute) Syncope (Chronic) Internal hemorrhoids (Acute) Trigger middle finger of right hand (Acute 04/25/16) Abdominal aortic aneurysm (AAA) 3.0 cm to 5.5 cm in diameter in male (Chronic) Found in October 2018, needs to be rechecked every 3 years Pure hypercholesterolemia (Chronic 01/31/12) goal LDL<70 Metabolic syndrome X (Chronic 02/15/13) goal 215# 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 s/p stenting x 5 2010 or 2011 at [facility] b. presenting symptom was primarily fatigue Hypertension (Chronic) Benign prostatic hypertrophy (Chronic) Atrial fibrillation (Chronic) I48.0 Paroxysmal atrial fibrillation 10/09/20 [facility] [place] Cardiology Medical History (Updated 01/21/24 @ 19:42 by Liliana Ewing MD) Fall Orthostatic hypotension Elevated troponin I level Ischemic stroke Hx of colonic polyps H/O: urinary stone Surgical History (Updated 01/20/24 @ 22:58 by Micheal Luna) S/P carotid endarterectomy S/P ablation of atrial fibrillation (10/2018) steriotactic brain bx (01/27/15) [facility] [place] bx brain abscess R small trigger finger release (05/28/16) [place] Family History Mother , HF at age 89. Heart disease Father , stroke HBP at age 90. Essential hypertension Brother , heart at age 82. No problems noted. Brother No problems noted. Social History (Updated 01/20/24 @ 22:10 by Micheal Luna) Smoking/Tobacco Use Status: Never Smoking risk assessment performed?: Yes Alcohol Intake: current Alcohol Intake frequency: 0-2 drinks per day Alcohol type: hard liquor Drug use: Never Substance use type: does not use Counseling given: No Adopted: No Caregiver/Support person: No Foster care: No Household members: spouse Housing: house Number of Children: 6 number of grandchildren: 13 Communication Needs: None and Corrective Lenses Education Level: college Details: Bachelor's degree Do you need help understanding health information?: Never 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 Pets and animals: No Sexually active: Yes Do you think of yourself as: straight/heterosexual Current gender identity: male What is your relationship status?: How often do you talk on the phone with friends or family?: three or more times per week How often do you get together with friends or relatives?: three or more times p er week Do you belong to any clubs or organized social groups?: yes Panel score (0-1 are the most socially isolated patients): 3 What type of physical activity do you participate in: none Cassidy/Episcopalian: None Special cassidy needs: No Seatbelt use: always Drive intox or ride w/intox school bus driver/mechanic: No Working smoke detector in home: Yes Fire extinguisher in home: Yes Carbon monox detector in home: Yes Do you feel safe at home: Yes Do you feel safe in your relationship?: Yes Additional Social history: 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 Lives with Kisha in [facility]. Time Spent with Patient Time Spent with Patient: 45-69 minutes Time was spent: preparing to see the patient(eg.review tests), obtaining and/or reviewing separately otained hiistory, ordering medications,tests, procedures, referring, communicating with other health overnight caregiver, indepentently interpreting results, counseling the patient and care coordination
[2024-01-22 11:30] VITALS: BP 104/66; PULSE 50; RESP 16; TEMP 36.3; O2SAT 99
--- NOTE | 2024-01-22 18:50 | PDOC.CMDIS ---
Date of service: 01/22/24 Time of Service: 18:50 LACE Index Scoring Tool Questions: Length of Stay (in days): 2 Was the patient admitted via the E.D.?: Yes Comorbidities: Congestive Heart Failure E.D. Visits: 8 Answers: Total Score: 11 Risk of Readmission: High Risk Care Management Discharge Plan Reason for Hospitalization: CHF, hypoxia Discharge Plan: Tomas returned home with no new services. His drove him home via private vehicle. He will follow up with his PCP and discharge plan of care. He is happy to be going home. Patient/Family Education Needs: Review discharge instructions and limitations, discussion of self care needs including ask me three SDOH Health Related Social Needs: Health related social needs risk of homeless
== END 2024-01-22 15:46 | disposition home or self-care (01) ==
LOC: ER 20:52 → MS 01-21 09:43
PROVIDERS: Internal Medicine; Admitting Provider Family Medicine; Emergency Provider Student in an Organized Health Care Education/Training Program; PCP Family Medicine; Visit Provider Family Medicine
DX: I11.0 Hypertensive heart disease with heart failure (principal); I50.33 Acute on chronic diastolic (congestive) heart failure; E87.6 Hypokalemia; G47.34 Idiopathic sleep related nonobstructive alveolar hypoventilation; I25.10 Atherosclerotic heart disease of native coronary artery without angina pectoris; Z95.5 Presence of coronary angioplasty implant and graft; Z86.73 Personal history of transient ischemic attack (TIA), and cerebral infarction without residual deficits; Z79.899 Other long term (current) drug therapy; I70.0 Atherosclerosis of aorta; N40.0 Benign prostatic hyperplasia without lower urinary tract symptoms; M54.50 Low back pain, unspecified; I73.9 Peripheral vascular disease, unspecified; E78.5 Hyperlipidemia, unspecified; I49.3 Ventricular premature depolarization; I71.40 Abdominal aortic aneurysm, without rupture, unspecified; I48.0 Paroxysmal atrial fibrillation; I27.20 Pulmonary hypertension, unspecified
CPT/HCPCS: 00123; 36415; 80048; 80053; 82805; 93005; 96365; 96366; 96372; 96375; 99285; J1650; 71046; 83735; 83880; 85025; 93010; 99232; 99239; G0378; J1941; J3480; J3490

== ENCOUNTER 2024-01-28 10:25 | Outpatient (CLI) | payer MEDICARE, SELFPAY ==
[2024-01-28 11:03] LABS: Anion Gap 11.4 mmol/L (3-11); BUN 24 mg/dL (7-18); CO2 27.6 mmol/L (21.0-32.0); Calcium 10.2 mg/dL (8.5-10.1); Chloride 100 mmol/L (98-107); Estimated GFR 77.04 (mL/min/1.73m2); Glucose 98 mg/dL (74-106); Potassium 3.9 mmol/L (3.5-5.1); Sodium 139 mmol/L (136-145)
== END 2024-01-28 10:26 | disposition home or self-care (01) ==
LOC: LBO 10:25
PROVIDERS: PCP Family Medicine; Visit Provider Internal Medicine
DX: E87.6 Hypokalemia (principal); I50.9 Heart failure, unspecified
CPT/HCPCS: 36415; 80048

== ENCOUNTER 2024-02-18 12:28 | Emergency (ER) | payer MEDICARE, SELFPAY ==
[2024-02-18 12:31] VITALS: BP 156/97; PULSE 61; RESP 18; TEMP 36.5; O2SAT 98
[2024-02-18 12:52] LABS: Bilirubin Negative (Negative); Blood Large (Negative); Clarity Cloudy (Clear); Glucose Negative (Negative); Ketones Negative (Negative); Leukocyte Esterase Large (Negative); Nitrite Negative (Negative); Specific Gravity 1.025 (1.005-1.025); Urobilinogen 0.2 mg/dL (Up to 0.2)
[2024-02-18 12:58] LABS: C & S Indicated? Yes; WBC >50 HPF (0-5)
--- NOTE | 2024-02-18 13:09 | W.ED.GENAD ---
Discharge Plan Disposition Patient Disposition: Home Condition: Stable Discharge Details Clinical Impression: Urinary tract infection Primary Care Provider: Camacho Barrera ED Provider: Jacquie Mas Home Meds and New Rx's Prescriptions: New fosfomycin tromethamine 3 gram packet 3 g PO ONCE Qty: 1 0RF Rx Instructions: Take one packet in 48 hours if return of symptoms No Action furosemide 20 mg tablet 20 mg PO DAILY Qty: 90 3RF Rx Instructions: Can take every other day if weight stops decreasing; timolol maleate 0.5 % gel forming solution 1 drp ophthalmic (eye) BID clotrimazole 1 % cream 1 applic topical BID Qty: 45 3RF atorvastatin 80 mg tablet 80 mg PO DAILY Patient Comments: TAKE ONE TABLET BY MOUTH EVERY EVENING lisinopril 2.5 mg tablet 2.5 mg PO DAILY Qty: 30 0RF clopidogrel 75 mg tablet 75 mg PO DAILY Hold Instructions: per [facility] diltiazem HCl 240 mg capsule,extended release 24hr 240 mg PO BID Qty: 0 0RF Patient Comments: TAKE ONE CAPSULE BY MOUTH EVERY MORNING lidocaine [Lidoderm] 5 % adhesive patch,medicated 1 patch topical DAILY Qty: 30 0RF Rx Instructions: leave on most painful area for up to 12 hrs Discharge Instructions Instructions: Urinary Tract Infection in Men (ED) Additional Instructions: You were given a one-time antibiotic dose here in the ER today. If symptoms are not better please take another dose in 2 days. Follow up with primary care provider in 3-5 days. Return to ED sooner if any worsening or concerns. Please take Tylenol or Ibuprofen with food every 4-6 hours as needed for pain and swelling. Referrals: Camacho Barrera DO [Primary Care Provider] - 5 days Discharge Data Discharge Date/Time-TO BE ENTERED AT DEPARTURE: 02/18/24 13:27 HPI General Mode of arrival: ambulatory. Date/Time Provider Initiated Documentation: 02/18/24 12:31. Limitations to Documentation: no limitations. Information obtained by: patient, RN notes reviewed and old records reviewed. HPI Narrative: 78 year old male presents after having Dysuria and urinary frequency since 0700 this am. Does have a history of UTI's but none in last 9 months. Denies fever, chills, abdominal pain or flank pain. No nausea, vomiting, diarrhea. Related Data Home Medications Medication Instructions Recorded Confirmed timolol maleate 0.5 % eye gel 1 drp ophthalmic (eye) BID 05/08/23 02/18/24 forming solution clotrimazole 1 % topical cream 1 applic topical BID #45 grams 06/27/23 02/18/24 clopidogrel 75 mg tablet 75 mg PO DAILY 07/17/23 02/18/24 atorvastatin 80 mg tablet 80 mg PO DAILY 01/01/24 02/18/24 diltiazem HCl 240 mg 240 mg PO BID #0 caps 01/13/24 02/18/24 capsule,extended release 24 hr lidocaine 5 % topical patch 1 patch topical DAILY #30 ea 01/13/24 02/18/24 (Lidoderm) lisinopril 2.5 mg tablet 2.5 mg PO DAILY #30 tabs 01/22/24 02/18/24 furosemide 20 mg tablet 20 mg PO DAILY #90 tabs 01/29/24 02/18/24 fosfomycin tromethamine 3 gram 3 g PO ONCE uti #1 ea 02/18/24 oral packet Previous Rx's Medication Instructions Recorded clotrimazole 1 % topical cream 1 applic topical BID #45 grams 06/27/23 diltiazem HCl 240 mg 240 mg PO BID #0 caps 01/13/24 capsule,extended release 24 hr lidocaine 5 % topical patch 1 patch topical DAILY #30 ea 01/13/24 (Lidoderm) lisinopril 2.5 mg tablet 2.5 mg PO DAILY #30 tabs 01/22/24 furosemide 20 mg tablet 20 mg PO DAILY #90 tabs 01/29/24 fosfomycin tromethamine 3 gram 3 g PO ONCE uti #1 ea 02/18/24 oral packet Allergies Allergy/AdvReac Type Severity Reaction Status Date / Time venom-honey bee Allergy Severe HIVES Verified 02/18/24 12:32 [bee venom (honey bee)] TACHYCARDIA Penicillins Allergy Intermediate HIVES Verified 02/18/24 12:32 levetiracetam [From [facility]] AdvReac Severe leukopenia Verified 02/18/24 12:32 prednisone AdvReac Severe rectal Verified 02/18/24 12:32 bleeding and diarrhea aspirin AdvReac Intermediate Nosebleeds Verified 02/18/24 12:32 ceftriaxone AdvReac Intermediate Leukopenia Verified 02/18/24 12:32 simvastatin AdvReac Intermediate LEG PAIN Verified 02/18/24 12:32 DR MCLEOD SHRIMP Allergy Intermediate HIVES , Uncoded 02/18/24 12:32 NAUSEA General Stated Complaint: Urinary PALOMA: 4 Review of Systems All systems reviewed & are unremarkable except as noted in HPI and below Genitourinary Genitourinary: Reports dysuria Exam Narrative Exam Narrative: Constitutional: Alert and oriented x3. Appears stated age. Normal body habitus. Head: Normocephalic, no trauma. Eyes: Pupils PERRL, Red reflex noted, EOM's intact. Eyelids symmetrical without lesions, discharge, or swelling. Chest: RRR, Normal S1, S2, distal pulses intact. Abdomen: Soft, non-distended, Normoactive bowel sounds all 4 quads. Musculoskeletal: Normal gait, 5/5 strength to all four extremities. Skin: No suspicious rashes or lesions. Capillary refill less than 2 sec. Neurologic: Cranial nerves II-XII intact. Alert and oriented x 3. Motor: No deficits noted. Hematologic/Lymphatic: No ecchymosis, no lymphadenopathy. Course Vital Signs Vital signs: Vital Signs Temperature 36.5 C 02/18/24 12:31 Pulse 61 02/18/24 12:31 Respiratory Rate 18 02/18/24 12:31 Blood Pressure 156/97 H 02/18/24 12:31 Pulse Oximetry 98 02/18/24 12:31 Temperature 36.5 C 02/18/24 12:31 Temperature Source Skin 02/18/24 12:31 Pulse 61 02/18/24 12:31 Respiratory Rate 18 02/18/24 12:31 Respiratory Effort Normal 02/18/24 12:52 Blood Pressure 156/97 H 02/18/24 12:31 Blood Pressure Position Sitting 02/18/24 12:31 Pulse Oximetry 98 02/18/24 12:31 Oxygen Delivery Method Room Air 02/18/24 12:31 Oxygen Flow Rate 0 02/18/24 12:31 Pain Level 3 02/18/24 12:52 Lab/Test Results Lab/Test Results: 02/18/24 12:40 Urine - Reflex from Ua Urine Culture - Pending Laboratory Tests Range/Units 02/18/24 12:40 Urine Color (Yellow) Yellow Urine Clarity (Clear) Cloudy Urine pH (5-8) 6.0 Ur Specific [place] (1.005-1.025) 1.025 Urine Protein (Neg-Trace) mg/dL 100 H Urine Ketones (Negative) mg/dL Negative Urine Blood (Negative) Large H Urine Nitrite (Negative) Negative Urine Bilirubin (Negative) Negative Urine Urobilinogen (Up to 0.2) mg/dL 0.2 Ur Leukocyte Esterase (Negative) Large H Urine RBC Not Applicable Urine WBC (0-5) HPF >50 H Ur Epithelial Cells Not Applicable Urine Crystals Not Applicable Urine Bacteria Not Applicable Urine Mucus Not Applicable Ur Culture Indicated? Yes Urine Glucose (Negative) mg/dL Negative Medical Decision Making 78 year old male presents after having Dysuria and urinary frequency since 0700 this am. Does have a history of UTI's but none in last 9 months. Denies fever, chills, abdominal pain or flank pain. No nausea, vomiting, diarrhea. Urinalysis shows greater than 50 WBCs, large blood culture is pending at this time. Patient is allergic to penicillin, will give fosfomycin 3 g p.o. here in the department with a prescription to take another dose in 48 hours if continued symptoms. Quality:[facility] Health Related Social Needs: Health related social needs risk of homeless PFSH All Active Problems (Updated 02/18/24 @ 13:12 by Jacquie Mas NP) Urinary tract infection (Acute) CHF exacerbation (Acute) Sleep related hypoxia (Acute) Atrial fibrillation with RVR (Acute) CHF (congestive heart failure) (Chronic) Influenza A (Acute) Left rib fracture (Acute) Atherosclerosis of aorta (Chronic) Enlarged prostate (Acute) Low back pain (Acute) Atrial fibrillation (Chronic) History of left-sided carotid endarterectomy (Acute) 07/16/2023 at [facility] Peripheral artery disease (Acute) 08/15/23 F/u Vascular Non-healing skin lesion (Acute) Hyperlipidemia, unspecified (Acute) Acute ischemic stroke (Acute 05/18/23) Occlusion of right vertebral artery (Acute) Carotid stenosis, bilateral (Chronic) I65.21 - Right-sided extracranial carotid artery stenosis Macrocytosis without anemia (Acute) Primary open angle glaucoma (POAG) of right eye, mild stage (Chronic) Tricuspid regurgitation (Acute) Beat, premature ventricular (Acute ~08/2022) 09/11/22 Cardiology 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 (Acute) Syncope (Chronic) Internal hemorrhoids (Acute) Trigger middle finger of right hand (Acute 04/25/16) Abdominal aortic aneurysm (AAA) 3.0 cm to 5.5 cm in diameter in male (Chronic) Found in October 2018, needs to be rechecked every 3 years Pure hypercholesterolemia (Chronic 01/31/12) goal LDL<70 Metabolic syndrome X (Chronic 02/15/13) goal 215# 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 s/p stenting x 5 2010 or 2011 at [facility] b. presenting symptom was primarily fatigue Hypertension (Chronic) Benign prostatic hypertrophy (Chronic) Atrial fibrillation (Chronic) I48.0 Paroxysmal atrial fibrillation 10/09/20 [facility] Cardiology Medical History Fall Orthostatic hypotension Elevated troponin I level Ischemic stroke Hx of colonic polyps H/O: urinary stone Surgical History S/P carotid endarterectomy S/P ablation of atrial fibrillation (10/2018) steriotactic brain bx (01/27/15) [facility] bx brain abscess R small trigger finger release (05/28/16) [place] Family History Mother , HF at age 89. Heart disease Father , stroke HBP at age 90. Essential hypertension Brother , heart at age 82. No problems noted. Brother No problems noted. 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 Pets and animals: No Sexually active: Yes Do you think of yourself as: straight/heterosexual Current gender identity: male What is your relationship status?: How often do you talk on the phone with friends or family?: three or more times per week How often do you get together with friends or relatives?: three or more times per week Do you belong to any clubs or organized social groups?: yes Panel score (0-1 are the most socially isolated patients): 3 What type of physical activity do you participate in: none Cassidy/Sabianism: None Special cassidy needs: No Seatbelt use: always Drive intox or ride w/intox [employer] truck driver: No Working smoke detector in home: Yes Fire extinguisher in home: Yes Carbon monox detector in home: Yes Do you feel safe at home: Yes Do you feel safe in your relationship?: Yes Additional Social history: 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 Lives with Kisha in [facility]
[2024-02-18] MEDS: Fosfomycin Tromethamine 3 GM PACKET PO (13:18)
[2024-02-18 13:27] VITALS: BP 150/65; PULSE 70; RESP 20; TEMP 36.8; O2SAT 98
== END 2024-02-18 13:27 | disposition home or self-care (01) ==
PROVIDERS: Emergency Provider Registered Nurse Emergency; PCP Family Medicine
DX: N39.0 Urinary tract infection, site not specified (principal); I25.10 Atherosclerotic heart disease of native coronary artery without angina pectoris; I69.954 Hemiplegia and hemiparesis following unspecified cerebrovascular disease affecting left non-dominant side; I48.0 Paroxysmal atrial fibrillation; Z95.5 Presence of coronary angioplasty implant and graft; Z79.01 Long term (current) use of anticoagulants
CPT/HCPCS: 99283; 81003; 81015; 87086; J3490

== ENCOUNTER 2024-02-27 08:17 | Outpatient (CLI) | payer MEDICARE, SELFPAY ==
--- NOTE | 2024-02-27 08:43 | W.CARDEVENT ---
Date of service: 02/27/24 Time of Service: 08:43 Cardiac Event Recorder Referring Provider:: agata Barrera Indications:: Atrial fibrillation Cardiac Event Note: This is a cardiac event monitor. Patient was monitored for 23 days and 20 hours Rhythm throughout was atrial fibrillation. Average heart rate was 86. Maximum was 165, minimum was 54. There were rare ventricular ectopic beats. There were several runs of nonsustained ventricular tachycardia. The longest of these was 12 beats in duration There were no pauses greater than 3 seconds There were no apparent patient symptoms
== END 2024-02-27 08:18 | disposition home or self-care (01) ==
LOC: CARDOPNVT 08:17
PROVIDERS: PCP Family Medicine; Visit Provider Internal Medicine Cardiovascular Disease
DX: I48.91 Unspecified atrial fibrillation (principal); I47.20 Ventricular tachycardia, unspecified
CPT/HCPCS: 93272

== ENCOUNTER 2024-07-09 13:26 | Outpatient (CLI) | payer MEDICARE, SELFPAY ==
[2024-07-09 13:30] LABS: Anion Gap 12.3 mmol/L (3-11); BUN 17 mg/dL (7-18); CO2 23.7 mmol/L (21.0-32.0); Calcium 9.5 mg/dL (8.5-10.1); Chloride 104 mmol/L (98-107); Estimated GFR 77.04 (mL/min/1.73m2); Glucose 154 mg/dL (74-106); Potassium 3.6 mmol/L (3.5-5.1); Sodium 140 mmol/L (136-145)
[2024-07-09 18:46] LABS: C Diff PCR Negative (Negative)
[2024-07-11 22:58] LABS: Campylobacter PCR Negative (Negative); Salmonella PCR Negative (Negative); Shiga Toxin PCR Negative (Negative); Shigella/Enteroinvasive Ecoli Negative (Negative)
== END 2024-07-09 13:27 | disposition home or self-care (01) ==
LOC: LBO 13:27 → LBN 16:43
PROVIDERS: PCP Family Medicine; Visit Provider Nurse Practitioner Family
DX: K52.9 Noninfective gastroenteritis and colitis, unspecified (principal); R19.7 Diarrhea, unspecified
CPT/HCPCS: 36415; 80048; 87493; 87505; 83630; 87177

== ENCOUNTER 2024-07-21 18:35 | Emergency (ER) | payer MEDICARE, SELFPAY ==
[2024-07-21 18:46] VITALS: BP 131/75; PULSE 89; RESP 15; TEMP 36.9; O2SAT 96
--- OUTSIDE RECORDS SUMMARY | 2024-07-21 19:26 | XMS_ITS | Encounter Summary ---
Author Organization [facility] Address [address] [place] [address] Care Team Providers Care Desktop Administrator Name Role Phone Mirna Irwin MD Primary Care Provider Unav ailable Encounter Details Date Type Department Care Team (Latest Contact Info) Description 08/22/2011 8:39 EDT - 08/23/2011 11:02 EDT Hospital Encounter [facility] Cardiac/Telemetry Unit [address], [place] [id number] Reji Sue MD [address] [place] [phone] Discharge Disposition: Home or Self Care Social History Tobacco Use Types Packs/Day Years Used Date Smoking Tobacco: Former Alcohol Use Standard Drinks/Week Comments Yes 0 (1 standard drink = 0.6 oz pur e alcohol) occ Sex and Gender Information Value Date Recorded Sex Assigned at Not on file Gender Identity Not on file Sexual Orientation Not on file documented as of this encounter Last Filed Vital Signs Vital Sign Reading Time Taken Comments Blood Pressure 123/67 08/23/2011 0904 EDT Pulse 70 08/23/2011 0300 EDT Temperature 36.5 ??C (97.7 ??F) 08/23/2011 0734 EDT Respiratory Rate 18 08/23/2011 0904 EDT Oxygen Saturation 95% 08/23/2011 0734 EDT Inhaled Oxygen Concentration - - Weight 95.3 kg (210 lb) 08/20/2011 1300 EDT Height 188 cm (6' 2) 08/20/2011 1300 EDT Body Mass Index 26.96 08/20/2011 1300 EDT documented in this encounter Functional Status Cognitive Status Response Date of Assessm ent Because of a physical, menta l, or emotional condition, do you have serious difficulty concentrating, remembering, or making decisions? (5 years old or older) Yes 08/22/2011 documented as of this encounter Discharge Summaries * Diane Colon NP - 08/22/2011 1545 EDT Discharge Summary Chief Complaint/Reason for Admission: Chest pain Principal/Final Diagnosis: 3 vessel coronary artery disease Principal Procedure: BRENDA PCI Circ, Ramus, LAD Date: 08/22/2011 Secondary Procedures: Not applicable Condition at Discharge: Stable Assessment at Discharge: Vital signs: Patient Vitals in the past 12 hrs: BP Temp Temp src Pulse Resp SpO2 08/23/11 0734 124/68 mmHg 36.5 ??C (97.7 ??F) Tympanic - 16 95 % 08/23/11 0300 131/76 mmHg - - 70 16 96 % 08/22/11 2203 134/70 mmHg 36.2 ??C (97.2 ??F) Tympanic - 16 98 % Pain management with last dose of pain med: Pain free Activities of daily living level: Independent, baseline Elimination: Voiding without difficulty Mental status: Alert, oriented, logical thought process Blood pressure 124/68, pulse 70, temperature 36.5 ??C (97.7 ??F), temperature source Tympanic, resp. rate 16, height 188 cm (74), weight 95.255 kg (210 lb), SpO2 95.00%. Mental: Alert and orient x 3, thought process is logical and sequential Eyes:Conjunctiva and lids WNL ENT: Hearing grossly intact Neck: Trachea midline Resp: Normal resp effort, CTA bilaterally CVS: Cor: Reg rate and rhythm, S1 and S2 present, no murmur rubs or gallops Peripheral: + right DP pulse; right femoral access site clear, no bleeding, no hematoma; no LE edema GI: abd soft non tender Neuro: Functionally intact Musculoskeletal: Normal muscle bulk and strength Skin: No rashes or ulcers ROS:a 10 pt ROS was performed. There were no pertinent positives. Pertinent negatives: no chest pain or SOB while walking in hallway this a.m, no dysuria, no dyspepsia Tele: NSR 70 with episodes of unifocal PVC's; multiple unifocal PVC pairs rate 160 but none since 3:00 a.m Recent Labs Basename 08/23/11 0623 08/22/11 0915 ??? HGB 13.4* -- ??? HCT 39.7 -- ??? PLT 185 -- ??? WBC 9.92 -- ??? NA 139 -- ??? K 4.6 -- ??? CL 103 -- ??? CO2 28 -- ??? BUN 13 -- ??? CREATININE 0.80 -- ??? PTT -- 32 ??? INR -- 1.0 Hospital Course: 65 yo male with 2 yr hx of intermittent chest pain now with increasing severity and more associated with exertion. Patient had a work up which included stress testing demonstrating moderate lateral and inferolateral ischemia. Diagnostic cardiac catheterization revealed significant stenoses in 3 vessels including a totally occluded Circ. The Circ, Ramus, and distal LAD were all treated with BRENDA PCI with a good result. The patient remained stable overnight and was discharged homein stable condition on lifetime ASA and Plavix daily x 1 year. Follow up is scheduled with Dr Jamie Rao in [facility] and the patient is referred to cardiac rehab at [facility] in [facility]. Diagnostic Studies: Diagnostic Cardiac Study Results Left main: nl Left anterior descendin% distal Left circumflex: 90% ramus, 100% distal Right coronary artery: nl Grafts: n//a LVEDP: 15 There was no gradient across the aortic valve. Left Ventriculography and Hemodynamic Results None Other Study Results Left ventricular function: 65% Interventional Procedure: Using standard technique, the dLCX vessel was stented using a 2.25x23 and3.5 x18 Xience. The Ramus was treated with a 2.5 x 24 [place]. The distal LAd was trested with a 2.5x18 and then 2.25x8mm Xience. Relevant Studies at Discharge: none Last Lab Results at Discharge: BUN: Lab Results Component Value Date BUN 13 08/23/2011 Creatinine: Lab Results Component Value Date CREATININE 0.80 08/23/2011 CBC: Lab Results Component Value Date WBC 9.92 08/23/2011 RBC 4.21* 08/23/2011 HGB 13.4* 08/23/2011 HCT 39.7 08/23/2011 MCV 94 08/23/2011 MCH 31.9 08/23/2011 MCHC 33.8 08/23/2011 PLT 185 08/23/2011 Electrolytes: Lab Results Component Value Date NA 139 08/23/2011 K 4.6 08/23/2011 CL 103 08/23/2011 CO2 28 08/23/2011 Lipid Profile: Lab Results Component Value Date CHOL 134 08/23/2011 TRIG 50 08/23/2011 HDL 28 08/23/2011 LDLBASE 96 08/23/2011 CHOLHDL 4.8 08/23/2011 No results found for this basename: HGBA1C Plan: Plavix 75 mg po QD x 1 year minimum. Continue ASA Optimize lipids Medications prior to admission that will be resumed at discharge: Medication Sig Dispense Refill ??? ISOSORBIDE ORAL Take 30 mg by mouth daily. ??? simvastatin (ZOCOR) 20 mg tablet Take 20 mg by mouth at bedtime. ??? lisinopril (PRINIVIL, ZESTRIL) 10 mg tablet Take 10 mg by mouth daily. New medications prescribed at discharge: Medication Sig Dispense Refill ??? aspirin chewable 81 mg tablet Take 1 Tab by mouth daily. Lifetime medication, do not stop 1 Tab0 ??? clopidogrel (PLAVIX) 75 mg tablet Take 1 Tab by mouth daily. Take this medicine every day without interruption for 12 months, until 08/22/2012. Never stop or interrupt this medicine without discussing first with your solution advisor. 90 Tab 3 cc: MD Jamie OLIVO Discharge Summary Completed: yes documented in this encounter Discharge Instructions * Discharge Instructions* Diane Colon NP - 08/22/2011 15:37 EDT Post Procedure Instructions: You had a percutaneous cardiovascular intervention (PCI) on 08/22/2011. Your procedure was performedthrough a small incision in the artery in your right leg. Normal Observations: Soreness or tenderness at the site may last one week but should be steadily improving. Brusing may last two weeks. Formation of a small lump (dime to quarter size) may last up to six weeks. Diet: No added salt, low saturated fat Activity: No heavy lifting or strenuous activity for 1 weeks; nothing >10 lbs Driving: May drive day after discharge Activity Post Percutaneous Coronary Intervention: Avoid driving on the day of discharge. Driving is possible on the first day if you are not limited by symptoms such as leg pain, shortness of breath or chest pain or if you have not been diagnosed with a serious, abnormal hearth rhythm. For leg incisions, for 48-72 hours after the PCI, avoid climbing stairs and other activity that involves a lot of leg bending. If you have not had a myocardial infarction (heart attack), it is likely you will be able to return to all activities involving moderate exertion 48 hours after the PCI. Please discuss returning tosevere exertion (running, manual labor) with your physician prior to discharge. If you had a myocardial infarction, your schedule for returning to work and moderate exertion will be individualized by your physician. If you had an arm approach, keep your arm comfortably straight for the first 24 hours and avoid bending your arm for 48-72 hours. When sleeping, keep the arm elevated to minimize throbbing. No heavy lifting (greater than 10 pounds) for one week. Skin/Wound Care: Resume normal skin care Care of Your Incision: Keep the area clean and dry. Leave the sterile dressing in place for 24 hours. After this, you may shower, but no tub baths or hot tub use for 5 days. Do not apply any powders or lotions to this area. Bathing: No bath or immersion for 5 days; showering is okay. Pending Results: Not applicable Quality Measures for Acute Myocardial Infarction or Heart Failure Patients: Not applicable Symptoms to Call Your Doctor About: Chest pain Dizziness or fainting Increased leg or ankle swelling Pain, redness or swelling at the procedure site Rapid, irregular pulse Shortness of breath Call your physician immediately if you experience any of the following: ?? Fever greater than 101, swelling, redness or signs of infection, including yellow discharge ?? Any increasing pain at the site of the wound ?? Numbness or tingling at a point below the wound ?? Skin rash ?? If you have not been able to urinate or 24 hours after leaving the hospital ?? Any recurrence of symptoms that brought you into the hospital initially: Chest pain, shortness of breath, dizziness ?? If you note any signs of bleeding, such as bulging under the skin the size of a golf ball, put direct pressure on the area and call your doctor immediately Medication Instructions: Your medications may be different than when you entered the hospital. Prior to leaving the hospital, please review all of your medications with the nurse at the time of discharge. Do not wait for mail order medications to come. Make sure you can take your medications immediately upon going home. Stent Medications: Because you had a stent placed, you are going to be taking two daily medications to keep your stentopen: aspirin and clopidogrel (Plavix). If you develop any rashes, stomach irritation or bleeding while taking these medications, immediately contact your solution advisor. Do not stop taking aspirin or Plavix without discussing this with your doctor. Appointments: See Dr. MIRNA IRWIN MD in 2 weeks. Please call for an appointment. Follow up with Dr.Michael Rao, [facility] [facility] in [facility], on FriSep 11 @ 10:00 a.m Clinic number: [phone]. Follow up with Cardiac Rehab Cardiac Rehab Referral: You have been referred for cardiac rehabilitation at your local hospital, [facility] in [facility]. We expect that the cardiac rehabilitation program will contact you directly regarding a visit to the program. If you do not hear from the cardiac program within two weeks, you should contact your physician's office regarding a referral. We will contact your hospital and your primary care physician to let them know you are a good candidate for outpatient cardiac rehabilitation. Follow-up Services Contacted at Discharge: none Heart Failure, Health Risk and Disease Information: Chest Pain Protocol If chest pain, discomfort or angina occurs and lasts for more than a few minutes then: 1. STOP what you are doing 2. Sit or lie down 3. If prescribed nitroglycerin ?? Place one table under your tongue (expect relief in 3-5 minutes) ?? If there is no relief after 5 minutes, place another tablet under your tongue. ?? If there is no relief after an additional 5 minutes, take a third tablet ?? If the discomfort has not been totally relieved after the third tablet, proceed to step 4 (call 911). 4. Call 911 immediately and arrange to be taken to the nearest emergency room 5. Keep the phone number or your local rescue squad taped to your phone along with directions to your home Remember, time is important to minimize heart damage. ?? DO NOT waste time going to the physician's office. ?? DO NOT ATTEMPT TO DRIVE YOURSELF TO THE HOSPITAL! If one or two tablets have given you relief, call your physician. Cholesterol Information The cholesterol in your body comes from two sources: the fats in the food you eat and your liver. Excess fat from foods is converted into LDL cholesterol and carries through the bloodstream to all parts of your body. LDL cholesterol sticks to the barnett of your arteries. Over time, this causes arteries to become blocked. The blockage slows the blood down and heart disease can result. HDL cholesterol helps free some of the LDL cholesterol from the barnett of the arteries and returns it to the bloodstream. Low fat diets help lower LDL cholesterol to a goal level. Ask your doctor about your appropriate LDL cholesterol goal. Hypertension Information When your blood pressure is too high, your heart needs to work harder to pump blood through your body. Over time, merna blood pressure can lead to more serious problems. A combination of diet, exercise and medication can help lower your blood pressure. Medication to lower blood pressure must be taken at the same time every day and over a long period of time. Talk with your physician if you have concerns about your blood pressure. Nutrition Counseling [facility] provides outpatient nutrition counseling. To schedule an appointment, call [phone]. Patients with diabetes are seen at the Endocrinology Clinic at these three practice sites: [address] [place] [address] [place], [place] [address] documented in this encounter Medications at Time of Discharge Medication Sig Dispensed Refills Start Date End Date aspirin chewable 81 mg tablet Take 1 Tab by mouth daily. Lifetime medication, do not stop 1 Tab 0 08/23/2011 clopidogrel (PLAVIX) 75 mg tablet Take 1 Tab by mouth daily. Take this medicine every day without interruption for 12 months, until 08/22/2012. Never stop or interrupt this medicine without discussing first with your solution advisor. 90 Tab 3 08/23/2011 ISOSORBIDE ORAL Take 30 mg by mouth daily. 08/20/2011 lisinopril (PRINIVIL, ZESTRIL) 10 mg tablet Take 10 mg by mouth daily. simvastatin (ZOCOR) 20 mg tablet Take 20 mg by mouth at bedtime. documented as of this encounter Ordered Prescriptions Prescription Sig Dispensed Refills Start Date End Da te clopidogrel (PLAVIX) 75 mg tablet Take 1 Tab by mouth daily. Take this medicine every day without interruption for 12 months, until 08/22/2012. Never stop or interrupt this medicine without discussing first with your solution advisor. 90 Tab 3 08/23/2011 aspirin chewable 81 mg tablet Take 1 Tab by mouth daily. Lifetime medication, do not stop 1 Tab 0 08/23/2011 documented in this encounter Discharge Disposition Disposition Code Departure Means Destination Home or Self Care documented in this encounter Progress Notes * Nguyen Del Real RN - 08/23/2011 1331 EDT Discharged without HH * Nguyen Del Real RN - 08/23/2011 1328 EDT Brief Case Management Assessment Reason for Hospitalization: S/p elective elective LHC, for plavix Current Living Arrangements: lives in [facility] with spouse Kisha Current Social, Health Care and Community Supports: Spouse and daughter Nayla Identified Case Management/Social Work Needs and Issues (housing, care, financial, transportation, cultural, spiritual, emotional, legal, etc.): No needs identified.Patient has Medicare A,B, BCBS for RXs, uses [facility] in [facility], 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 Case Management Actions (completed and planned): Met with patient who is on plavix [facility] and states has coverage.He declined HH Plan: to be discharged without HH. * Salma Parson - 08/23/2011 1050 EDT D: Patient admitted to for DOPA Cath; 5 stents placed. A: IV and telemetry discontinued, Discharge instructions reviewed with patient, [facility] [employer] gave patient prescriptions. R: Patient is A&Ox3, VSS, SR on monitor. IV site with no bleeding/swelling, patienty denies CP,SOB and discomfort. Patient states understanding of discharge instructions. Patient is discharged off unit to home in wheelchair wiuth patient escort to [facility] to retrieve his wallet from security (no documentation in chart) and to meet daughter in front of [facility]. Patient left prior to signing discharge instructions. * Reji Sue MD - 08/23/2011 09 EDT Interventional Cardiology f/u note CC: cad E: s/p multivessel PCI S: Pt denies cp, sob, palp, orthopnea/ pnd, cough, f/c, abd pain, n/v, d/c, presyncope/syncope, le edema, back or groin pain, urinary difficulty O: Tele: freq PVC's few couplets Blood pressure 123/67, pulse 70, temperature 36.5 ??C (97.7 ??F), temperature source Tympanic, resp. rate 18, height 188 cm (74), weight 95.255 kg (210 lb), SpO2 95.00%. GEN: A&O times 3 NECK: no elevated JVP CV: regular, no mrg, 2+ DP/PT pulses Pulm: CTAB, no WRC Abd: s, nt/nd Ext: no le edema, MAEW Neuro: sensation and strength intact, CN II-XII intact grossly Incision: C/D/I, no ecchymosis/ hematoma, no tenderness of the pelvis/lower back Current facility-administered medications Medication Dose Route Frequency Provider Last Rate Last Dose ??? sodium chloride 0.9 % (NS) infusion 30 mL/hr Intravenous CONTINUOUS Diane Colon NP 30 mL/hr (08/22/11941) Last Dose: 30 mL/hr at 08/22/11941 ??? sodium chloride 0.9 % (NS) infusion Intravenous CONTINUOUS Matty Lorenz MD 75 mL/hr () ??? clopidogrel (PLAVIX) tablet 75 mg 75 mg Oral DAILY Matty Lorenz MD Last Dose: 75 mg at 08/23/11912 ??? aspirin chewable tablet 81 mg 81 mg Oral DAILY Matty Lorenz MD Last Dose: 81 mg at 08/23/11913 ??? simvastatin (ZOCOR) tablet 20 mg 20 mg Oral QPM Matty Lorenz MD Last Dose: 20 mg at 08/22/11 1815 ??? lisinopril (PRINIVIL, ZESTRIL) tablet 10 mg 10 mg Oral DAILY Matty Lorenz MD Last Dose: 10 mgat 08/23/11 0911 Recent Labs Basename 08/23/11 0623 08/22/11 0915 ??? HGB 13.4* 14.5 ??? HCT 39.7 42.8 ??? WBC 9.92 10.01 ??? PLT 185 204 ??? CK 33 -- ??? CKMBINDEX Not calculated, normal MB. -- ??? AST 19 -- ??? ALT 29 -- ??? BUN 13 21 ??? NA 139 142 ??? K 4.6 4.3 ??? CL 103 105 ??? CO2 28 28 ??? CREATININE 0.80 0.80 ??? TROPONINI -- -- ??? HDL 28 -- ??? CHOL 134 -- ??? TRIG 50 -- ??? PTT -- 32 ??? INR -- 1.0 LDL 93 A/P - ASA 325 mg po daily, then ASA 81 mg indef - Plavix 75 mg po daily for 12 months - cont cardiac meds, including statin and beta- miller - f/u with cardiology in 2-3 months - f/u with PCP in 2 weeks. * Matty Lorenz - 08/23/2011 0706 EDT Cardiology Progress note Admit Date: 08/22/2011 Hospital day: LOS: 1 day Date of Service: 08/23/2011 Chief Complaint: Presented with chest pain Events/ Procedures in the last 24 hrs:Underwent multi-vessel PCI with BRENDA yeserday Subjective: Mr. Flores is feeling fine. Has no chest pain or groin swelling. Current facility-administered medications Medication Route Frequency ??? sodium chloride 0.9 % (NS) infusion Intravenous CONTINUOUS ??? sodium chloride 0.9 % (NS) infusion Intravenous CONTINUOUS ??? clopidogrel (PLAVIX) tablet 75 mg Oral DAILY ??? aspirin chewable tablet 81 mg Oral DAILY ??? simvastatin (ZOCOR) tablet 20 mg Oral QPM ??? lisinopril (PRINIVIL, ZESTRIL) tablet 10 mg Oral DAILY Review of Systems: Pertinent items are noted in Subjective/HPI Objective/Physical Exam: VS: Patient Vital Signs in the past 8 hrs: BP Pulse Heart Rate Resp SpO2 O2 Device 08/23/11 0653 - - 58 BPM - - - 08/23/11 0613 - - 60 BPM - - - 08/23/11 0452 - - 61 BPM - - - 08/23/11 0408 - - 56 BPM - - - 08/23/11 0300 131/76 mmHg 70 - 16 96 % Room air 08/23/11 0251 - - 57 BPM - - - 08/23/11 0144 - - 60 BPM - - - 08/23/11 0022 - - 58 BPM - - - 08/23/11 0016 - - 67 BPM - - - Pain: Patient Numeric Pain Scale in the past 8 hrs: Numeric Pain Level (Scale 1-10) 08/23/11 0300 0 Weight: Empty flowsheet group. Glucose Readings (last 8 hours): No results found for this basename: GLUCOSEFINGE:8 in the last 72 hours I&O: Intake/Output Summary (Last 24 hours) at 08/23/11 07 Last data filed at 08/22/11 2000 Gross per 24 hour Intake 960 ml Output 700 ml Net 260 ml Exam: General appearance: alert Lungs: clear to auscultation bilaterally Heart: regular rate and rhythm, S1, S2 normal, no murmur, click, rub or gallop Extremities: extremities warm, atraumatic, no cyanosis or edema positive pulses bilat Pulses: 2+ and symmetric Lab Review: I have personally reviewed CBC: Lab Results Component Value Date WBC 10.01 08/22/2011 RBC 4.58 08/22/2011 HGB 14.5 08/22/2011 HCT 42.8 08/22/2011 MCV 93 08/22/2011 MCH 31.7 08/22/2011 MCHC 33.9 08/22/2011 PLT 204 08/22/2011 BMP: Lab Results Component Value Date NA 142 08/22/2011 K 4.3 08/22/2011 CL 105 08/22/2011 CO2 28 08/22/2011 BUN 21 08/22/2011 CREATININE 0.80 08/22/2011 Cardiac markers: No results found for this basename: CKMBINDEX:3, TROPONINI:3 Lipid Profile: No results found for this basename: CHOL, TRIG, HDL, LDLBASE, CHOLHDL No results found for this basename: HGBA1C Telemetry: yes, Normal sinus rhythm EKG: normal sinus rhythm, no blocks or conduction defects, no ischemic changes, WNL Assessment: 65 year old with hypertension and dyslipidemia who underwent PCI and stenting of the LCX, Ramus Intermedius and the LAD with BRENDA. Plan: 1. CAD s/p PCI and stenting to the LAD The patient is chest pain free. Aspirin for life Plavix for at least a year. 2D showed normal EF 2. Hypertension Lisinopril 10 mg QD 3. Dyslipidemia Zocor 20 mg Lipid profile Discharge Plan: Home or self care MATTY LORENZ MD 08/23/2011 7:06 * Reji Seu MD - 08/22/2011 1602 EDT August 22, 2011 Mirna Irwin MD [facility] [address] [place] [address], [address] [place] [address] Irwin: I am writing in regards Mirna Flores. Briefly, he was referred for cardiac catheterization after presenting with exertional angina and having a positive stress test. At cath, we identified a normal right coronary artery. The left coronary was diffusely diseased with total occlusion of the distal circumflex, 90% stenosis of the ramus intermedius and 90% distal LADstenosis. All of these areas were successfully treated with intracoronary stenting. Drug-eluting stents were used in all cases. Left ventricular ejection fraction and end-diastolic pressure were bothnormal. We will be starting Mr Flores on Plavix 75 mg daily with a recommended one-year treatment course. As always, I appreciate the opportunity to participate in your patient's care. Sincerely, Reji Sue MD 04 02 PM / Reji Sue MD kayla Confirmation: [id number] Dictation ID: [id number] cc:Jamie Irwin MD * Diane Colon NP - 08/22/2011 1528 EDT Plavix daily without interruption x 1 year and Aspirin 81 mg daily lifetime reviewed with patient and the patient verbalizes understanding. Cardiac rehab reviewed with patient and the patient is willing to attend at [facility] in [facility]. Referral sent and written material given to patient. Right femoral site injected with xylocaine/epi 6 ml with resolution of site bleeding. + right DP pulse. No chest pain. * Sadia Mir RN - 08/22/2011 0906 EDT 0900 Mirna Flores arrived to the Cardiovascular Unit via ambulatory. Patient identified per [facility] policy and oriented to Unit. Reviewed pre-procedure instructions with Mirna Flores. All questions answered & patient verbalizes understanding. Pre-cardiac cath prep completed per protocol. Stretcher in low position with side rails up & call hinkle within patient reach. Daughter will arrive later and transport 0950 to lab analyst via stretcher with transport. Pain 0/10. No family here at present. is home recovering from hip surgery and daughter lives in [place] and will cook pickled meat later. * Diane Colon NP - 08/21/2011 1319 EDT Records reviewed prior to cardiac catheterization. 65 year old male with several years of chest pain which he describes as a substernal heaviness radiating to right arm, per Dr Rao. NM stress reveals a moderate inferolateral and lateral JVM. On both ASA and Plavix. Normal GFR. Referring: Dr Jamie Rao. * SinaCarolyn rae - 08/20/2011 1435 EDT Spoke with patient reviewed med list, medical history and procedure. NPO instructions given. Patient takes ASA and Plavix daily. documented in this encounter H&P Notes * Juaquin Ramirez MD - 08/22/2011 1035 EDT Cardiology Admitting H&P Admit Date: 08/22/2011 Date of Service: 08/22/2011 PCP: MIRNA IRWIN MD Chief Complaint: Chest pain HPI: 65 yo male with 2 yr hx of intermittent chest pain now with increasing severity and more associatedwith exertion. Patient had a work up which included stress testing demonstrating moderate lateral and inferolateral ischemia. He presents for [facility]. PMH PSH Past Medical History Diagnosis Date ??? Abnormal cardiovascular stress test inferolateral, lateral ischemia ??? HTN (hypertension) ??? Hyperlipidemia ??? Chest pain History reviewed. No pertinent past surgical history. Social History Family History History Substance Use Topics ??? Smoking status: Former Smoker ??? Smokeless tobacco: Not on file ??? Alcohol Use: Yes occ History reviewed. No pertinent family history. Medications Prescriptions prior to admission Medication Sig Dispense Refill ??? ISOSORBIDE ORAL Take 30 mg by mouth daily. ??? clopidogrel (PLAVIX) 75 mg tablet Take 75 mg by mouth daily. ??? simvastatin (ZOCOR) 20 mg tablet Take 20 mg by mouth at bedtime. ??? lisinopril (PRINIVIL, ZESTRIL) 10 mg tablet Take 10 mg by mouth daily. ??? aspirin chewable 81 mg tablet Take 81 mg by mouth daily. Allergies Allergies Allergen Reactions ??? Penicillins ??? Other - See Comments Bee stings AND SHRIMP Review of Systems: Gen: no fevers/chills/weight loss HEENT: no visual changes, no sinus congestion Pulm: no sig SOB/no cough CV: as per HPI Abd: no pain, no diarrhea or melena Neuro: no syncope or stroke Skin: no rash or erythema Endocrine: no heat/cold intolerance Psych: no depression/anxiety Vascular: no swelling or wounds Objective/Physical Exam: VS: Patient Vital Signs in the past 8 hrs: BP Pulse Resp Temp SpO2 O2 Device 08/22/11 0914 138/71 mmHg 65 18 36.4 ??C (97.5 ??F) 98 % Room air Pain: Patient Numeric Pain Scale in the past 8 hrs: Numeric Pain Level (Scale 1-10) 08/22/11 0914 0 Weight: Weight : 95.255 kg (210 lb) Body mass index is 26.96 kg/(m^2). Glucose Readings (last 8 hours): No results found for this basename: GLUCOSEFINGE:8 in the last 72 hours Exam: Gen: NAD HEENT: PERRL/MMM Neck: no sig JVD Pulm: CTAB CV: RRR, no MRG Abd: soft/NT, +BS Ext: 2+ femoral pulses, 2+ DP pulses -ELZA bilaterally Neuro: A+O x 3 wih no focal deficits Data Review: ECG with occasional PVCs and lateral TWI Labs: Lab Results Component Value Date CREATININE 0.80 08/22/2011 Lab Results Component Value Date NA 142 08/22/2011 K 4.3 08/22/2011 CL 105 08/22/2011 CO2 28 08/22/2011 Lab Results Component Value Date INR 1.0 08/22/2011 PROTIME 11.6 08/22/2011 Lab Results Component Value Date WBC 10.01 08/22/2011 HGB 14.5 08/22/2011 HCT 42.8 08/22/2011 MCV 93 08/22/2011 PLT 204 08/22/2011 eGFR calculation: GFR, Calculated Date Value Range Status 08/22/2011 >60 - (ml/min/1.73m2) Final Assessment: 65 yo male with cardiac risk factors including HTN presenting with exertional chest pain of increasing frequency and evidence of ischemia on stress testing. Plan : 1. Chest Pain+Stress: patient has been on plavix x 1 wk. Plan for LHC and PCI if indicated. No contraindications to DAPT at this time. Consent obtained. Juaquin Ramirez MD 08/22/2011 10:35 documented in this encounter Procedure Notes * Reji Sue MD - 08/22/2011 1151 EDT Cardiovascular Catheterization Laboratory Preliminary Report -- Catheterization Date of Service/Procedure: 08/22/2011 Attending Physician: Reji Sue MD Fellow: Juaquin Ramirez MD and Matty Lorenz MD Pre-Procedure Diagnosis/Indication: Mirna Flores is a 65 y.o. year old male with Chest pain. Anesthesia: A moderate level of anesthesia/conscious sedation was used in addition to local anesthesia. Access: Right femoral artery Procedure: He was brought to the [facility] Cardiac Catheterization Laboratory for the procedure: Diagnostic coronary/graft angiography, LV gram, Left heart cath and Coronary intervention (PCI). Closure: Angioseal Post-Procedure Condition: The condition of the patient was Good. Complications: None. IV Contrast Total: 350 mL Estimated Blood Loss: Minimal. Unless otherwise noted, there were no specimens removed, cultures obtained, or drains retained. Clinical Trial: is not enrolled in a clinical trial. Diagnostic Cardiac Study Results Left main: nl Left anterior descendin% distal Left circumflex: 90% ramus, 100% distal Right coronary artery: nl Grafts: n//a LVEDP: 15 There was no gradient across the aortic valve. Left Ventriculography and Hemodynamic Results None Other Study Results Left ventricular function: 65% Endovascular Study Results None Post-Procedure Diagnostic Conclusion: PCI is indicated. Interventional Procedure: Using standard technique, the dLCX vessel was stented using a 2.25x23 and3.5 x18 Xience. The Ramus was treated with a 2.5 x 24 [place]. The distal LAd was trested with a 2.5x18 and then 2.25x8mm Xience. Plan: Plavix 75 mg po QD x 1 year minimum. Continue ASA Optimize lipids Post Interventional Conclusion / Physician Order for Admission: The patient cannot go home same daydue to > 60 minute distance from the PCI center or other co-morbidity that warrants bedded outpatient, overnight stay. Reference: LUANA Walker et. Al. Randomized trial comparing same-day discharge with overnight hospital stay after percutaneous coronary intervention; Circulation; 2006March 31; 115 (17):3463-306 Reji Sue MD 08/22/2011 11:51 * Compliance Examiner, Scan - 08/22/2011 0000 EDTAssociated Order(s): ECG REPORT - SCANNED * Compliance Examiner, Scan - 08/22/2011 0000 EDTAssociated Order(s): ECG REPORT - SCANNED * Compliance Examiner, Scan - 08/22/2011 0000 EDTAssociated Order(s): CARDIAC CATHERIZATION REPORT - SCANNED * Compliance Examiner, Scan - 08/22/2011 0000 EDTAssociated Order(s): ECG REPORT - SCANNED documented in this encounter Miscellaneous Notes * Plan of Care - Bouchra Mondragon RN - 08/23/2011 0413 EDT Problem: CIRCULATORY STATUS Goal: Patient Has Stable Vital Signs And Fluid Balance Active Multi-Disciplinary problems: DAILY CARE [536102] (08/22/11) SKIN INTEGRITY [584284] (08/22/11) DISCHARGE PLANNING [332277] (08/22/11) CIRCULATORY STATUS [363134] (08/22/11) Data: Patient voiced no complaints. Right groin with small amt of old ooz. Marked with no change. VSS. Tele: NSR to SB. Action: hrly checks. Response: CTM BOUCHRA MONDRAGON RN 08/23/2011 4:12 * Plan of Care - Grace Duran - 08/23/2011 0311 EDT Problem: CIRCULATORY STATUS Goal: Patient Has Stable Vital Signs And Fluid Balance Outcome: Met This Shift D: patients right groin site remains intact. Dime sized stain. + PP A: vs monitored R: wcm * Plan of Care - Mikayla Mackay RN - 08/22/2011 1304 EDT Problem: CIRCULATORY STATUS Goal: Patient Has Stable Vital Signs And Fluid Balance Intervention: Assess peripheral pulses and capillary refill Data: New admission Action: Patient arrived to [place] [address]. Vital signs noted. Tele applied. Patient SB with HR in 50s. Patient denies chest pain, SOB, and discomfort. Patient denies complaints at this time. Patient oriented to room, equipment, and careplan. R groin saturated on arrival, pressure held for 15 minutesand Diane Colon [employer] K[employer]ITTER HAND FRAME in room is aware. Positive pedal pulses. Assessment as documented in flowsheet. Admission database complete. Response: Will continue to monitor and document per protocol. 1300: Second R groin dressing continues to ooze. Diane Colon [employer]AME made aware and lido-epi injectiongiven. R groin is CDI. 1600: Orthos completed and patient passed. Patient up in hallway ambulating without any difficulties. Will CTM. Mikayla Mackay RN 08/22/2011 13:02 * Scanned Note-Null - Compliance Examiner, Scan - 08/22/2011 0000 EDT * Scanned Note-Null - Compliance Examiner, Scan - 08/22/2011 0000 EDT * Scanned Note-Null - Compliance Examiner, Scan - 08/22/2011 0000 EDT * Scanned Note-Null - Compliance Examiner, Scan - 08/22/2011 0000 EDT * Scanned Note-Null - Compliance Examiner, Scan - 08/22/2011 0000 EDT * Scanned Note-Null - Compliance Examiner, Scan - 08/22/2011 0000 EDT * Scanned Note-Null - Compliance Examiner, Scan - 08/22/2011 0000 EDT documented in this encounter Plan of Treatment Not on file documented as of this encounter Procedures Procedure Name Priority Date/Time Associated Diagnosis Comments ECG REPORT - SCANNED 09/03/2011 8:11 EDT ECG REPORT - SCANNED 08/27/2011 20:52 EDT INVASIVE CARDIOLOGY REPORT-SCANNED 08/27/2011 20:52 EDT COMPLETE BLOOD COUNT Routine 08/23/2011 6:23 EDT BUN Routine 08/23/2011 6:23 EDT ALT Routine 08/23/2011 6:23 EDT AST Routine 08/23/2011 6:23 EDT CREATININE Routine 08/23/2011 6:23 EDT CK MB WITH TOTAL CK Routine 08/23/2011 6 :23 EDT LIPID PROFILE (INCLUDES CHOLESTEROL, TRIGLYCERIDES, HDL, LDL) Routine 08/23/2011 6:23 EDT ELECTROLYTES Routine 08/23/2011 6:23 EDT ECHOCARDIOGRAM Routine 08/22/2011 14:54 EDT PTT STAT 08/22/2011 9:15 EDT PROTIME STAT 08/22/2011 9:15 EDT COMPLETE BLOOD COUNT STAT 08/22/2011 9:15 EDT BUN STAT 08/22/2011 9:15 EDT CREATININE STAT 08/22/2011 9:15 EDT ELECTROLYTES STAT 08/22/2011 9:15 EDT EKG 12-LEAD Routine 08/22/2011 9:05 EDT documented in this encounter Results * ECG REPORT - SCANNED (09/03/2011 8:11 EDT) 09/03/2011 8:11 EDT Narrative Procedure Note Compliance Examiner, Scan - 08/22/2011 0:00 EDT Scan Compliance Examiner PROCEDURE/MINOR SURG ICAL ORDERABLES * CARDIAC CATHERIZATION REPORT - SCANNED (08/27/2011 20:52 EDT) 08/27/2011 20:5 2 EDT Narrative Procedure Note Compliance Examiner, Scan - 08/22/2011 0:00 EDT Scan Compliance Examiner PROCEDURE/MINOR SURG ICAL ORDERABLES * ECG REPORT - SCANNED (08/27/2011 20:52 EDT) 08/27/2011 20:5 2 EDT Narrative Procedure Note Compliance Examiner, Scan - 08/22/2011 0:00 EDT Transcriptions Compliance Examiner, Scan - 08/22/2011 0:00 EDT Scan Compliance Examiner PROCEDURE/MINOR SURG ICAL ORDERABLES * CK MB WITH TOTAL CK (08/23/2011 6:23 EDT) CK 33 0 - 250 U/L [facility] MB 3.3 0 - 5.0 ng/ml [facility] CK-MB Index Not calculated, normal MB. 0 - 2.5 [facility] Blood specimen (specimen) 08/23/2011 6:23 EDT 08/23/2011 7:25 EDT Matty Lorenz MD CHEMISTRY & BLOOD GA S ORDERABLES Performing Organization Address [facility] de Phone Number [facility] [address] [place] [address] * ALT (08/23/2011 6:23 EDT) ALT 29 21 - 72 U/L [facility] Blood specimen (specimen) 08/23/2011 6:23 EDT 08/23/2011 7:25 EDT Matty Lorenz MD CHEMISTRY & BLOOD GA S ORDERABLES Performing Organization Address [facility] de Phone Number [facility] [address] [place] [address] * AST (08/23/2011 6:23 EDT) AST 19 15 - 46 U/L [facility] Blood specimen (specimen) 08/23/2011 6:23 EDT 08/23/2011 7:25 EDT Matty Lorenz MD CHEMISTRY & BLOOD GA S ORDERABLES Performing Organization Address [facility] de Phone Number [facility] [address] [place] [address] * LIPID PROFILE (INCLUDES CHOLESTEROL, TRIGLYCERIDES, HDL, LDL) (08/23/2011 6:23 EDT) Cholesterol 134 mg/dl [facility] Comment:Desirable:<200 Borde rline High:200-239 High:>ol=249 Triglycerides 50 35 - 160 mg/dl [facility] HDL 28 mg/dl [facility] Comment:Low:<40 High(Desirab le):>or=60 LDL, Calculated 96 mg/dl [facility] Comment: Optimal:<100 Above optimal:100-129 Borderline High:130-159 High:160-189 Very High:>kk=113 Chol/HDL Ratio 4.8 [facility] Fasting? Unknown [facility] Blood specimen (specimen) 08/23/2011 6:23 EDT 08/23/2011 7:25 EDT Matty Lorenz MD CHEMISTRY & BLOOD GA S ORDERABLES [facility] [address] [place] [address] * CREATININE (08/23/2011 6:23 EDT) Creatinine 0.80 0.7 - 1.5 mg/dl [facility] GFR, Calculated >60 ml/min/1.7 3m2 [facility] Blood specimen (specimen) 08/23/2011 6:23 EDT 08/23/2011 7:25 EDT Matty Lorenz MD CHEMISTRY & BLOOD GA S ORDERABLES [facility] [address] [place] [address] * BUN (08/23/2011 6:23 EDT) BUN 13 10 - 26 mg/dl [facility] Blood specimen (specimen) 08/23/2011 6:23 EDT 08/23/2011 7:25 EDT Matty Lorenz MD CHEMISTRY & BLOOD GA S ORDERABLES Performing Organization Address [facility]/ZIP Co de Phone Number [facility] [address] [place] [address] * ELECTROLYTES (08/23/2011 6:23 EDT) Sodium 139 136 - 145 mEq/L [facility] Potassium 4.6 3.5 - 5.0 mEq/L [facility] Chloride 103 96 - 110 mEq/L [facility] CO2 28 24 - 32 mEq/L [facility] Blood specimen (specimen) 08/23/2011 6:23 EDT 08/23/2011 7:25 EDT Matty Lorenz MD CHEMISTRY & BLOOD GA S ORDERABLES Performing Organization Address [facility] de Phone Number [facility] [address] [place] [address] * (ABNORMAL) HEMAGRAM (08/23/2011 6:23 EDT) WBC 9.92 4.0 - 10.4 K/cmm [facility] RBC 4.21(L) 4.36 - 5.78 M/cmm [facility] Hemoglobin 13.4(L) 13.8 - 17.3 gm/dl [facility] HCT 39.7 39.5 - 50.2 % [facility] MCV 94 81 - 95 fl [facility] MCH 31.9 27.6 - 33.0 pg [facility] MCHC 33.8 32.8 - 36.4 gm/dl [facility] PLT 185 141 - 320 K/cmm [facility] RDW-CV 13.9 11.8 - 14.1 % [facility] Blood specimen (specimen) 08/23/2011 6:23 EDT 08/23/2011 7:25 EDT Matty Lorenz MD HEMATOLOGY & PF4 ORD ERABLES Performing Organization Address City/[facility]/ZIP Co de Phone Number [facility] [address] [place] [address] * ECHOCARDIOGRAM (08/22/2011 14:54 EDT) Anatomical Region Laterality Modality Other 08/22/2011 14:5 4 EDT Narrative 08/22/2011 16:14 EDT *Interpreting Group:* *[facility]* [address] [place] [address] *STUDY CONCLUSIONS* Summary: 1. Left ventricle: The cavity size was normal. Wall ?? thickness was increased in a pattern of mild LVH. ?? Systolic function was normal. The estimated ejection ?? fraction was 55-60%. Wall motion was normal; there were ?? no regional wall motion abnormalities. Doppler parameters ?? are consistent with abnormal left ventricular relaxation ?? (grade 1 diastolic dysfunction). 2. Aortic valve: Mildly calcified annulus. Trileaflet; ?? normal thickness leaflets. Valve mobility was mildly ?? restricted. 3. Left atrium: The atrium was mildly dilated. *PATIENT PRESENTATION* Height: ? 188cm (74in ) S/D Pressure: 115 / 69 Weight: ? 95.3kg (209.6lb ) BSA: ?2.24m^2 Test start time: ??02:00 PM. Test stop time: ??02:52 PM. ADMITTING ?Reji Sue ATTENDING ?Reji Sue REFERRING ?Mirna Irwin TEMPERATURE CONTROL INSPECTOR ??Jaz Javier RDCS PERFORMING ?? Fa, ORDERING ? Matty Lorenz REFERRING ?Matty Lorenz *PROCEDURE DATA* Procedure information: ??This study was interpreted by [facility] at [facility]. ??Study status: ??Routine. Transthoracic echocardiography. ??M-mode, complete 2D, complete spectral Doppler, and color Doppler. A Transthoracic Echocardiogram was performed. Scanning was performed from the parasternal, apical, subcostal, and suprasternal notch acoustic windows. Images were obtained using a Agapito [id number] - 3 cardiac ultrasound machine. ??Study completion: ??The patient tolerated the procedure well. *INDICATIONS AND HISTORY* Indications: ?? 414.00, Coronary atherosclerosis of unspecified type of vessel [place] or graft. *CARDIAC ANATOMY* Left ventricle: ??The cavity size was normal. Wall thickness was increased in a pattern of mild LVH. Systolic function was normal. The estimated ejection fraction was 55-60%. Wall motion was normal; there were no regional wall motion abnormalities. Doppler parameters are consistent with abnormal left ventricular relaxation (grade 1 diastolic dysfunction). Aortic valve: ?? Mildly calcified annulus. Trileaflet; normal thickness leaflets. Valve mobility was mildly restricted. Doppler: ??Transvalvular velocity was within the normal range. There was no stenosis. ??No regurgitation. Aorta: ??Aortic root: The aortic root was normal in size. Mitral valve: ?? Mildly thickened, mildly calcified leaflets. . Mobility was not restricted. ??Doppler: ??Transvalvular velocity was within the normal range. There was no evidence for stenosis. ??Trivial regurgitation. ?Peak gradient: 4mm Hg (D). Left atrium: ??The atrium was mildly dilated. Right ventricle: ??The cavity size was normal. Wall thickness was normal. Systolic function was normal. Pulmonic valve: ?Doppler: ??Transvalvular velocity was within the normal range. There was no evidence for stenosis. Tricuspid valve: ?? Doppler: ??Transvalvular velocity was within the normal range. ??No regurgitation. Pulmonary artery: ?? Pulmonary systolic pressure was at [id number] Hg plus right atrial pressure. Right atrium: ??The atrium was normal in size. Pericardium: ??There was no pericardial effusion. Systemic veins: Inferior vena cava: The vessel was normal in size. *MEASUREMENT TABLES* 2D measurements ?Normal Left ventricle Volume, ED, MOD, 1-plane ? 60 ml ? ------- Volume, ES, MOD, 1-plane ? 22 ml ? ------- Ejection fraction, MOD, 1-plane ?63 % ?------- Volume index, ED, MOD, 1-plane ? 27 ml/m^2 ------- Volume index, ES, MOD, 1-plane ? 10 ml/m^2 ------- Aorta Root diameter, ED ?38 mm ? ------- Ascending aorta anterior-posterior ? 38 mm ? ------- diameter, S Left atrium Anterior-posterior dimension ? 41 mm ? ------- Anterior-posterior dimension index ? 1.83 cm/m^2 <2.2 M-mode measurements ?Normal Left ventricle LV internal dimension, ED ?47.3 mm ? 37-56 LV internal dimension, ES ?30.4 mm ? ------- Fractional shortening ?36 % ?29-45 Volume, ED, Teichholz ? 104 ml ? ------- Volume, ES, Teichholz ?36.2 ml ? ------- Ejection fraction, Teichholz ? 65.2 % ?64-83 Volume index, ED, Teichholz ?46 ml/m^2 ------- Volume index, ES, Teichholz ?16 ml/m^2 ------- Doppler measurements ? Normal Mitral valve Peak E-wave velocity ?106 cm/s ?? ------- Peak A-wave velocity ? 77.5 cm/s ?? ------- Deceleration time ? 211 ms ? 150-230 Peak gradient, D ?4 mm Hg ??------- Peak E/A ratio ? 1.37 ?------- Legend: Mean values are shown as u=mean value. Asterisk (*) rodriguez values outside specified normal range. Electronically signed by Lalo Swain MD [id number] Procedure Note 08/22/2011 *Interpreting Group:* *[facility]* [address] [place] [address] *STUDY CONCLUSIONS* Summary: 1. Left ventricle: The cavity size was normal. Wall thickness was increased in a pattern of mild LVH. Systolic function was normal. The estimated ejection fraction was 55-60%. Wall motion was normal; there were no regional wall motion abnormalities. Doppler parameters are consistent with abnormal left ventricular relaxation (grade 1 diastolic dysfunction). 2. Aortic valve: Mildly calcified annulus. Trileaflet; normal thickness leaflets. Valve mobility was mildly restricted. 3. Left atrium: The atrium was mildly dilated. *PATIENT PRESENTATION* Height: 188cm (74in ) S/D Pressure: 115 / 69 Weight: 95.3kg (209.6lb ) BSA: 2.24m^2 Test start time: 02:00 PM. Test stop time: 02:52 PM. ADMITTING Reji Sue ATTENDING Reji Sue REFERRING Mirna Irwin TEMPERATURE CONTROL INSPECTOR Jaz Javier, [facility] PERFORMING Fahc, Ip ORDERING Gerda Matty REFERRING SimonkrissMatty *PROCEDURE DATA* Procedure information: This study was interpreted by [facility] at [facility]. Study status: Routine. Transthoracic echocardiography. M-mode, complete 2D, complete spectral Doppler, and color Doppler. A Transthoracic Echocardiogram was performed. Scanning was performed from the parasternal, apical, subcostal, and suprasternal notch acoustic windows. Images were obtained using a [employer] [id number] - 3 cardiac ultrasound machine. Study completion: The patient tolerated the procedure well. *INDICATIONS AND HISTORY* Indications: 414.00, Coronary atherosclerosis of unspecified type of vessel [place] or graft. *CARDIAC ANATOMY* Left ventricle: The cavity size was normal. Wall thickness was increased in a pattern of mild LVH. Systolic function was normal. The estimated ejection fraction was 55-60%. Wall motion was normal; there were no regional wall motion abnormalities. Doppler parameters are consistent with abnormal left ventricular relaxation (grade 1 diastolic dysfunction). Aortic valve: Mildly calcified annulus. Trileaflet; normal thickness leaflets. Valve mobility was mildly restricted. Doppler: Transvalvular velocity was within the normal range. There was no stenosis. No regurgitation. Aorta: Aortic root: The aortic root was normal in size. Mitral valve: Mildly thickened, mildly calcified leaflets. . Mobility was not restricted. Doppler: Transvalvular velocity was within the normal range. There was no evidence for stenosis. Trivial regurgitation. Peak gradient: 4mm Hg (D). Left atrium: The atrium was mildly dilated. Right ventricle: The cavity size was normal. Wall thickness was normal. Systolic function was normal. Pulmonic valve: Doppler: Transvalvular velocity was within the normal range. There was no evidence for stenosis. Tricuspid valve: Doppler: Transvalvular velocity was within the normal range. No regurgitation. Pulmonary artery: Pulmonary systolic pressure was at pwfll02ms Hg plus right atrial pressure. Right atrium: The atrium was normal in size. Pericardium: There was no pericardial effusion. Systemic veins: Inferior vena cava: The vessel was normal in size. *MEASUREMENT TABLES* 2D measurements Normal Left ventricle Volume, ED, MOD, 1-plane 60 ml ------- Volume, ES, MOD, 1-plane 22 ml ------- Ejection fraction, MOD, 1-plane 63 % ------- Volume index, ED, MOD, 1-plane 27 ml/m^2 ------- Volume index, ES, MOD, 1-plane 10 ml/m^2 ------- Aorta Root diameter, ED 38 mm ------- Ascending aorta anterior-posterior 38 mm ------- diameter, S Left atrium Anterior-posterior dimension 41 mm ------- Anterior-posterior dimension index 1.83 cm/m^2 <2.2 M-mode measurements Normal Left ventricle LV internal dimension, ED 47.3 mm 37-56 LV internal dimension, ES 30.4 mm ------- Fractional shortening 36 % 29-45 Volume, ED, Teichholz 104 ml ------- Volume, ES, Teichholz 36.2 ml ------- Ejection fraction, Teichholz 65.2 % 64-83 Volume index, ED, Teichholz 46 ml/m^2 ------- Volume index, ES, Teichholz 16 ml/m^2 ------- Doppler measurements Normal Mitral valve Peak E-wave velocity 106 cm/s ------- Peak A-wave velocity 77.5 cm/s ------- Deceleration time 211 ms 150-230 Peak gradient, D 4 mm Hg ------- Peak E/A ratio 1.37 ------- Legend: Mean values are shown as u=mean value. Asterisk (*) rodriguez values outside specified normal range. Electronically signed by Lalo Swain MD [id number] Matty Lorenz MD CARDIAC ECHO ORDERAB LES * PTT (08/22/2011 9:15 EDT) PTT 32 24 - 35 secs [facility] Comment:Therapeutic Heparin range: 60-90 seconds Blood specimen (specimen) 08/22/2011 9:15 EDT 08/22/2011 9:40 EDT Diane Colon [employer]IC KNITTER HAND FRAME HEMATOLOGY & PF4 ORD ERABLES [facility] [address] [place] [address] * PROTIME (08/22/2011 9:15 EDT) Pro Time 11.6 9.5 - 13.1 secs [facility] I.N.R. 1.0 0.9 - 1.1 Ratio [facility] Comment: ??Moderate Intensity Coumadin INR = 2.0-3.0 Adjustments in anticoagulant therapy dose should be based upon the INR and NOT the Pro Time. ?? Blood specimen (specimen) 08/22/2011 9:15 EDT 08/22/2011 9:40 EDT Diane Colon NP HEMATOLOGY & PF4 ORD ERABLES Performing Organization Address [facility] de Phone Number [facility] [address] [place] [address] * HEMAGRAM (08/22/2011 9:15 EDT) WBC 10.01 4.0 - 10.4 K/cmm [facility] RBC 4.58 4.36 - 5.78 M/cmm [facility] Hemoglobin 14.5 13.8 - 17.3 gm/dl [facility] HCT 42.8 39.5 - 50.2 % [facility] MCV 93 81 - 95 fl [facility] MCH 31.7 27.6 - 33.0 pg [facility] MCHC 33.9 32.8 - 36.4 gm/dl [facility] PLT 204 141 - 320 K/cmm [facility] RDW-CV 13.5 11.8 - 14.1 % [facility] Blood specimen (specimen) 08/22/2011 9:15 EDT 08/22/2011 9:40 EDT Diane Colon NP HEMATOLOGY & PF4 ORD ERABLES Performing Organization Address [facility] de Phone Number [facility] [address] [place] [address] * CREATININE (08/22/2011 9:15 EDT) Creatinine 0.80 0.7 - 1.5 mg/dl [facility] GFR, Calculated >60 ml/min/1.7 3m2 [facility] Blood specimen (specimen) 08/22/2011 9:15 EDT 08/22/2011 9:40 EDT Diane Colon SURGICAL ELASTIC KNITTER HAND FRAME CHEMISTRY & BLOOD GA S ORDERABLES Performing Organization Address [facility] de Phone Number [facility] [address] [place] [address] * BUN (08/22/2011 9:15 EDT) BUN 21 10 - 26 mg/dl [facility] Blood specimen (specimen) 08/22/2011 9:15 EDT 08/22/2011 9:40 EDT Diane Colon SURGICAL ELASTIC KNITTER HAND FRAME CHEMISTRY & BLOOD GA S ORDERABLES Performing Organization Address [facility] de Phone Number [facility] [address] [place] [address] * ELECTROLYTES (08/22/2011 9:15 EDT) Sodium 142 136 - 145 mEq/L [facility] Potassium 4.3 3.5 - 5.0 mEq/L [facility] Chloride 105 96 - 110 mEq/L [facility] CO2 28 24 - 32 mEq/L [facility] Blood specimen (specimen) 08/22/2011 9:15 EDT 08/22/2011 9:40 EDT Diane Colon SURGICAL ELASTIC KNITTER HAND FRAME CHEMISTRY & BLOOD GA S ORDERABLES Performing Organization Address [facility] de Phone Number [facility] [address] [place] [address] documented in this encounter Visit Diagnoses Not on filedocumented in this encounter Administered Medications Inactive Administered Medications - up to 3 most recent administrations Medication Order MAR Action Action Date Dose Rate Site aspirin chewable tablet 81 mg 81 mg, oral, DAILY, First dose on Tash 08/22/11 at 1230, Until Discontinued, Routine Given 08/23/2011 9:14 EDT 81 mg clopidogrel (PLAVIX) tablet 75 mg 75 mg, oral, DAILY, First dose on Fri08/23/11 at 0900, Until Discontinued, Routine Given 08/23/2011 9:13 EDT 75 mg lidocaine-EPINEPHrine 2 %-1:100,000 injection 5-10 mL 5-10 mL, intradermal, PRN, 1 dose, Starting on Tash 08/22/11 at 1200, Until Tash 08/22/11 at 1315, Other, to control bleeding , Routine Given by Other 08/22/2011 13:15 EDT 5 mL lisinopril (PRINIVIL, ZESTRIL) tablet 10 mg 10 mg, oral, DAILY, First dose on Tash 08/22/11 at 1230, Until Discontinued, Routine Given 08/23/2011 9:11 EDT 10 mg simvastatin (ZOCOR) tablet 20 mg 20 mg, oral, EVERY EVENING, First dose on Tash 08/22/11 at 1700, Until Discontinued, Routine Given 08/22/2011 18:15 EDT 20 mg sodium chloride 0.9 % (NS) infusion 30 mL/hr, intravenous, CONTINUOUS, Starting on Tash 08/22/11 at 0930, Until Fri08/23/11 at 1303, Routine, Preprocedure New Bag 08/22/2011 9:42 EDT 30 mL/hr 30 mL/hr sodium chloride 0.9 % (NS) infusion at 75 mL/hr, intravenous, CONTINUOUS, Starting on Tash 08/22/11 at 1230, Until Fri08/23/11 at 1303, Routine New Bag 08/22/2011 12:45 EDT 75 mL/hr documented in this encounter Discontinued Medications Medication Sig Discontinue Reason Start Date End Da te aspirin chewable 81 mg tablet Take 81 mg by mouth daily. 08/23/2011 clopidogrel (PLAVIX) 75 mg tablet Take 75 mg by mouth daily. 08/23/2011 documented as of this encounter Historical Medications * This list may reflect changes made after this encounter. Medication Sig Dispensed Refills Start Date End Date lisinopril (PRINIVIL, ZESTRIL) 10 mg tablet Take 10 mg by mouth daily. simvastatin (ZOCOR) 20 mg tablet Take 20 mg by mouth at bedtime. ISOSORBIDE ORAL Take 30 mg by mouth daily. 08/20/2011 aspirin chewable 81 mg tablet Take 81 mg by mouth daily. 08/23/2011 clopidogrel (PLAVIX) 75 mg tablet Take 75 mg by mouth daily. 08/23/2011 added in this encounter Active and Recently Administered Medications Times are shown in EDT. Scheduled Medication Order 08/21/2011 08/22/2011 08/23/2011 aspirin chewable tablet 81 mg (CANCELED) 81 mg, oral, DAILY, First dose on Fri08/22/11 at 1230, Until Discontinued, Routine 1349 (Not Given - Provider: Mikayla Mackay RN - Reason: Other - Comment: Patient took CYCLE MANAGER.) 0914 (Given - Provider: Salma Parson) clopidogrel (PLAVIX) tablet 75 mg (CANCELED) 75 mg, oral, DAILY, First dose on Fri08/23/11 at 0900, Until Discontinued, Routine 0913 (Given - Provid er: Salma Parson) lisinopril (PRINIVIL, ZESTRIL) tablet 10 mg (CANCELED) 10 mg, oral, DAILY, First dose on Fri08/22/11 at 1230, Until Discontinued, Routine 1349 (Not Given - Provider: Mikayla Mackay RN - Reason: Other - Comment: Patient took CYCLE MANAGER) 0911 (Given - Provider: Salma Parson) simvastatin (ZOCOR) tablet 20 mg (CANCELED) 20 mg, oral, EVERY EVENING, First dose on Fri08/22/11 at 1700, Until Discontinued, Routine 1815 (Given - Provider: Mikayla Mackay RN) Continuous Medication Order 08/21/2011 08/22/2011 08/23/2011 sodium chloride 0.9 % (NS) infusion (CANCELED) 30 mL/hr, intravenous, CONTINUOUS, Starting on Fri08/22/11 at 0930, Until Fri08/23/11 at 1303, Routine, Preprocedure 0942 (New Bag - Provider: Sadia Mir RN) sodium chloride 0.9 % (NS) infusion (CANCELED) at 75 mL/hr, intravenous, CONTINUOUS, Starting on Fri08/22/11 at 1230, Until Fri08/23/11 at 1303, Routine 1245 (New Bag - Provider: Mikayla Mackay RN) PRN Medication Order 08/21/2011 08/22/2011 08/23/2011 lidocaine-EPINEPHrine 2 %-1:100,000 injection 5-10 mL (COMPLETED) 5-10 mL, intradermal, PRN, 1 dose, Starting on Fri08/22/11 at 1200, Until Fri08/22/11 at 1315, Other, to control bleeding , Routine 1315 (Given by Other - Provider: Mikayla Mackay RN - Comment: Given by Diane Colon NP) documented in this encounter Orders Medications Ordered That Antonio ht Not Have Been Administered Count Last Ordered Date First Ordered Date lisinopril (PRINIVIL, ZESTRIL) tablet 5 mg 1 08/23/2011 Lab Orders Without Results Count Last Ordered D ate First Ordered Date POCT GLUCOSE 1 08/22/2011 EKG Orders Without Results Count Last Ordered D ate First Ordered Date EKG 12-LEAD 1 08/22/2011 Nursing Count Last Ordered Date First Orde red Date INSERT PERIPHERAL IV 1 08/22/2011 Admission Count Last Ordered Date First Orde red Date NOTIFY PPS OF DISCHARGE COMPLETE 1 08/23/20 11 NOTIFY PPS OF ROOM CHANGE COMPLETE 2 2010 ADMIT TO OUTPATIENT 1 08/22/2011 NON-TEACHING SERVICE 1 08/22/2011 PPS NOTIFICATION OF PATIENT ARRIVAL ON UNIT 1 08/22/2011 Discharge Count Last Ordered Date First Orde red Date DISCHARGE PATIENT 1 08/23/2011 documented in this encounter Care Teams Desktop Administrator Relationship Specialty Start Date End Date Mirna Irwin MD PCP - General 08/20/11 documented as of this encounter
--- OUTSIDE RECORDS SUMMARY | 2024-07-21 19:26 | XMS_ITS | Encounter Summary ---
[place] [address] Care Team Providers Care Assistant Health Educator Name Role Phone Camacho Barrera DO Primary Care Provider [phone] Encounter Details Date Type Department Care Team (Late st Contact Info) Description 06/11/2024 [place]phone [place] [id number] Maribeth Cullen Social History Tobacco Use Types Packs/Day Years Used Date Smoking Tobacco: Never Smokeless Tobacco: Never Alcohol Use Standard Drinks/Week Comments Yes 14 (1 standard drink = 0.6 oz pu re alcohol) 2-3 drinks/night [facility] Inpatient Questions Answer Date Recorded Does Anyone Try to Keep You From Having Contact with Others or Doing Things Outside Your Home? no 05/20/2023 Feels Threatened by Someone no 05/02 Feels Unsafe at Home or Work/School no 05/20/2023 Physical Signs of Abuse Present no 05/20/2023 Sex and Gender Information Value Date Recorded Sex Assigned at Male 10/01/2021 4:04 PM EDT Gender Identity Not on file Sexual Orientation Not on file documented as of this encounter Miscellaneous Notes * Telephone Encounter - Maribeth Cullen - 06/11/2024 11:45 AM EDT Spoke with patient today to get him scheduled for a follow up visit and some testing. Patient feelshe is doing great and it does not need this appointment. I told him to call if he needs anything. B CAR DUP - carotid stenosis, 6M F/[facility] CLOSED RECALL documented in this encounter Plan of Treatment Upcoming Encounters Date Type Department Care Team (Late st Contact Info) Description 09/08/2024 9:40 AM EDT Office Visit Cardiology at [address] [address] Gonzales Torres MD [facility] [place] [address] documented as of this encounter Visit Diagnoses Not on filedocumented in this encounter Care Teams Assistant Health Educator Relationship Specialty Start Date End Date Camacho Barrera DO [address] [place] [address] PCP - General Family Medicine 07/01/18 documented as of this encounter
--- OUTSIDE RECORDS SUMMARY | 2024-07-21 19:26 | XMS_ITS | Continuity of Care Document ---
Author Organization [facility] Address Unknown Care Team Providers Care Electric Blanket Packer Name Role Phone Camacho Barrera Primary Care Physician [phone] Encounter [facility] Date(s): 01/18/23 - 02/14/23 [facility] [address] [place] [address]- Encounter Diagnosis Unspecified atrial fibrillation(Final) - Discharge Disposition: Home or Self Care Attending Physician: Zachery Hernandez Admitting Physician: Zachery Hernandez Allergies, Adverse Reactions, Alerts Substance Reaction Severity Status penicillin Angioedema Severe Active aspirin Nosebleed Mild Active simvastatin Myalgia Mild Active Keppra Leukopenia Mild Active cefTRIAXone Leukopenia Mild Active shellfish Nausea and vomiting Moderate Active Pollen Anaphylaxis Severe Active Assessment and Plan Future Scheduled Tests Radiology* US Echocardiogram Complete 01/25/23 Medications atorvastatin 10 mg oral tablet 10 mg = 1 tab(s), Oral, Daily, # 30 tab(s), 0 Refill(s) Start Date: 01/14/23 Status: Ordered digoxin 125 mcg (0.125 mg) oral tablet 250 mcg = 2 tab(s), Oral, Daily, # 60 tab(s), 1 Refill(s), Pharmacy: [id number], 2 tab(s) Oral Daily, 187, cm, 01/14/23 22:00:00 EST, Height/Length Dosing, 98.4, kg, 01/14/23 22:00:00 EST, Weight Dosing Start Date: 01/18/23 Status: Ordered dilTIAZem 30 mg oral tablet 60 mg = 2 tab(s), Oral, TID, # 180 tab(s), 0 Refill(s), Pharmacy: [id number], void 90mg Rx, fill 60mg TID, 2 tab(s) Oral TID, 187, cm, 01/14/23 22:00:00 EST, Height/Length Dosing, 98.4, kg, 01/14/23 22:00:00 EST, Weight Dosing Start Date: 01/18/23 Status: Ordered lisinopril 5 mg oral tablet 5 mg = 1 tab(s), Oral, Daily, # 30 tab(s), 0 Refill(s), Pharmacy: [id number], 1 tab(s) Oral Daily, 187, cm, 01/14/23 22:00:00 EST, Height/Length Dosing, 98.4, kg, 01/14/23 22:00:00 EST, Weight Dosing Start Date: 01/18/23 Status: Ordered metoprolol succinate 200 mg oral tablet, extended release 200 mg = 1 tab(s), Oral, Daily, # 30 tab(s), 1 Refill(s), Pharmacy: [id number], 1 tab(s) OralDaily, 187, cm, 01/14/23 22:00:00 EST, Height/Length Dosing, 98.4, kg, 01/14/23 22:00:00 EST, Weight Dosing Start Date: 01/18/23 Status: Ordered rivaroxaban 20 mg oral tablet 20 mg = 1 tab(s), Oral, qPM, # 30 tab(s), 0 Refill(s) Start Date: 01/14/23 Status: Ordered timolol maleate 0.5% ophthalmic solution 1 drop(s), OPTH, BID, # 5 mL, 0 Refill(s) Start Date: 01/14/23 Status: Ordered Problem List Condition Confirmation Course Effective Dates Status H ealth Status Informant AAA (abdominal aortic aneurysm) Confirmed Active Brain abscess Confirmed Active Atrial fibrillation Confirmed Active BPH (benign prostatic hyperplasia) Confirmed Active Coronary atherosclerosis of [place] coronary artery Confirmed Active S/P coronary artery stent placement Confirmed Active HLD (hyperlipidemia) Confirmed Active HTN (hypertension) Confirmed Active Internal hemorrhoid Confirmed Active Metabolic syndrome X Confirmed Active Moderate mitral regurgitation Confirmed Active 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 1 Sex 1Less than a ppd when teenager. Quit 1962. Patient Care team information Care Team Personnel Name: Camacho Barrera Position: [facility] No Access Member Role: Informed Provider Address: Address: [address] [place] [address] [place] Care Team Related Persons Name: MUSHTAQ MILTON Name: CHIKI MILTON Address: Home [address] [facility] [id number]
--- OUTSIDE RECORDS SUMMARY | 2024-07-21 19:26 | XMS_ITS | Continuity of Care Document ---
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 Date(s): 01/14/23 - 01/18/23 [facility] [address] [place] [address]- Encounter Diagnosis Acute congestive heart failure(Discharge Diagnosis) - 01/14/23 Community acquired pneumonia of left lung(Discharge Diagnosis) - 01/14/23 Atrial flutter with rapid ventricular response(Discharge Diagnosis) - 01/15/23 HTN (hypertension)(Discharge Diagnosis) - 01/16/23 Atrial fibrillation(Discharge Diagnosis) - 01/16/23 Discharge Disposition: Home or Self Care Attending Physician: Alan Diaz MD Admitting Physician: Alan Diaz MD Allergies, Adverse Reactions, Alerts Substance Reaction Severity Status penicillin Angioedema Severe Active aspirin Nosebleed Mild Active simvastatin Myalgia Mild Active shellfish Nausea and vomiting Moderate Active Pollen Anaphylaxis Severe Active Keppra Leukopenia Mild Active cefTRIAXone Leukopenia Mild Active Assessment and Plan Extracted from: Title:nursin d/c and education Author:JESI GERMAIN RN Date:01/18/23 Pt's here ot pick pt up , he was taken out in w/c to their car. Pt has meds for tonight's and morning's doses. he also has eye drops. He has printed d/c instuctions. Pt states he will take HR prior to diltiazem and hold dose if <60. He states he will take BP daily and follow up with providers and scheduled. saline locks have been removed. Extracted from: Title:admit from ED Author:Shanika Mix Date :01/15/23 Patient admitted from ED thi s morning at 1015. He is Aox4, denies dizziness. HR was 127 when patient was picked up. Hooked up to tele on arrival to unit. Sinus tach, aware of rate. O2 stable on room air. No edema denies SOB. No bowel/bladder complaints. Good appetite. BP good. Afebrile, dry cough. Extracted from: Title:Clinical Document Author:Gloria Campos RN Date:01/14/23 See Progress Note written by Olga Lidia Suarez RN. Diagnostic Tests Pending * Scanlon Hold 01/14/23 Future Scheduled Tests Radiology* US Echocardiogram Complete 01/25/23 Functional Status 01/18/23 History of Fall in Last 3 Months Dunn N o Mobility Duncan No limitations 01/17/23 Bathing ADL Index Independent (2) Dressing ADL Index Independent (2) Toileting ADL Index Independent (2) Transferring Bed or Chair ADL Index Requ ires assistance (1) Continence ADL Index Independent (2) ADLs Minimal assistance 01/15/23 Recent Travel History No recent travel Family Member Travel History No recent t ravel COVID-19 Screening None Medications atorvastatin 10 mg oral tablet 10 mg = 1 tab(s), Oral, Daily, # 30 tab(s), 0 Refill(s) Start Date: 01/14/23 Status: Ordered digoxin 250 mcg = 2 tab(s), Tab, Oral, Start date: 01/18/23 8:30:00 EST, 01/16/23 8:45:00 EST Start Date: 01/18/23 Stop Date: 01/18/23 Status: Completed digoxin 250 mcg = 2 tab(s), Tab, Oral, Start date: 01/17/23 8:30:00 EST, 01/16/23 8:45:00 EST Start Date: 01/17/23 Stop Date: 01/17/23 Status: Completed digoxin 125 mcg (0.125 mg) oral tablet 250 mcg = 2 tab(s), Oral, Daily, # 60 tab(s), 1 Refill(s), Pharmacy: [id number], 2 tab(s) Oral Daily, 187, cm, 01/14/23 22:00:00 EST, Height/Length Dosing, 98.4, kg, 01/14/23 22:00:00 EST, Weight Dosing Start Date: 01/18/23 Status: Ordered dilTIAZem 90 mg = 3 tab(s), Tab, Oral, Start date: 01/17/23 18:00:00 EST, 01/15/23 12:00:00 EST Start Date: 01/17/23 Stop Date: 01/17/23 Status: Completed dilTIAZem 30 mg oral tablet 60 mg = 2 tab(s), Oral, TID, # 180 tab(s), 0 Refill(s), Pharmacy: [id number], void 90mg Rx, fill 60mg TID, 2 tab(s) Oral TID, 187, cm, 01/14/23 22:00:00 EST, Height/Length Dosing, 98.4, kg, 01/14/23 22:00:00 EST, Weight Dosing Start Date: 01/18/23 Status: Ordered lisinopril 5 mg oral tablet 5 mg = 1 tab(s), Oral, Daily, # 30 tab(s), 0 Refill(s), Pharmacy: [id number], 1 tab(s) Oral Daily, 187, cm, 01/14/23 22:00:00 EST, Height/Length Dosing, 98.4, kg, 01/14/23 22:00:00 EST, Weight Dosing Start Date: 01/18/23 Status: Ordered metoprolol succinate 200 mg oral tablet, extended release 200 mg = 1 tab(s), Oral, Daily, # 30 tab(s), 1 Refill(s), Pharmacy: [id number], 1 tab(s) OralDaily, 187, cm, 01/14/23 [...] 0 Refill(s) Start Date: 01/14/23 Status: Ordered Mental Status 01/18/23 Sensory Perception Duncan No impairment Level of Consciousness Alert Problem List Condition Confirmation Course Effective Dates Status H ealth Status Informant AAA (abdominal aortic aneurysm) Confirmed Active Brain abscess Confirmed Active Atrial fibrillation Confirmed Active BPH (benign prostatic hyperplasia) Confirmed Active Coronary atherosclerosis of eagle coronary artery Confirmed Active S/P coronary artery stent placement Confirmed Active HLD (hyperlipidemia) Confirmed Active HTN (hypertension) Confirmed Active Internal hemorrhoid Confirmed Active Metabolic syndrome X Confirmed Active Moderate mitral regurgitation Confirmed Active 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 Confirmed Active Syncope Confirmed Active Results Laboratory List Name Date Digoxin DH 01/18/23 ProBNP DH 01/18/23 .Hemogram DH (CBC DH) 01/17/23 CMP DH 01/17/23 Digoxin DH 01/17/23 SARS CoV-2 DH 01/17/23 C Reactive Protein (CRP) 01/16/23 Lactate DH 01/16/23 .Hemogram DH (CBC DH) 01/15/23 Basic Metabolic Panel DH 01/15/23 Magnesium DH 01/15/23 ProBNP DH 01/15/23 Basic Metabolic Panel DH (BMP DH) 3 CBC w/Diff DH 01/14/23 Magnesium DH 01/14/23 Most recent to oldest [Reference Range]: 1 2 3 Albumin Lvl DH [3.2-5.2 g/dL] 3.2 g/dL (01/17/23 6:15 AM) Alk Phos DH [40-120 unit/L] 69 unit/L (01/17/23 6:15 AM) ALT DH [0-55 unit/L] 10 unit/L (01/17/23 6:15 AM) Anion Gap DH [5-15 mmol/L] 9 mmol/L (01/17/23 6:15 AM) 12 mmol/L (01/15/23 5:45 AM) 12 mmol/L (01/14/23 9:15 PM) AST DH [0-39 unit/L] 16 unit/L (01/17/23 6:15 AM) Bili Total DH [0.2-1.3 mg/dL] 0.5 mg/dL (01/17/23 6:15 AM) Chloride Lvl DH [98-107 mmol/L] 102 mmol/L (01/17/23 6:15 AM) 103 mmol/L (01/15/23 5:45 AM) 104 mmol/L (01/14/23 9:15 PM) CO2 DH [22-31 mmol/L] 27 mmol/L (01/17/23 6:15 AM) 25 mmol/L (01/15/23 5:45 AM) 25 mmol/L (01/14/23 9:15 PM) Est GFR DH [>=60 mL/min/1.73 m2] 93 mL/min/1.73 m2 1 (01/17/23 6:15 AM) 94 mL/min/1.73 m2 2 (01/15/23 5:45 AM) 93 mL/min/1.73 m2 3 (01/14/23 9:15 PM) Glucose Lvl DH [65-99 mg/dL] 106 mg/dL *HI* (01/17/23 6:15 AM) 125 mg/dL *HI* (01/15/23 5:45 AM) 133 mg/dL *HI* (01/14/23 9:15 PM) NRBC% auto DH [0-0 %] 0 % (01/14/23 9:15 PM) NRBC Absolute DH 0 *NA* (01/14/23:15 PM) Potassium Lvl DH [3.5-5.0 mmol/L] 4.0 mmol/L (01/17/23 6:15 AM) 3.9 mmol/L (01/15/23 5:45 AM) 4.1 mmol/L (01/14/23 9:15 PM) Sodium Lvl DH [135-145 mmol/L] 138 mmol/L (01/17/23 6:15 AM) 140 mmol/L (01/15/23 5:45 AM) 141 mmol/L (01/14/23 9:15 PM) Total Protein DH [6.1-8.0 g/dL] 6.1 g/dL (01/17/23 6:15 AM) BUN DH [10-20 mg/dL] 13 mg/dL (01/17/23 6:15 AM) 15 mg/dL (01/15/23 5:45 AM) 18 mg/dL (01/14/23 9:15 PM) Calcium Lvl DH [8.5-10.5 mg/dL] 9.5 mg/dL (01/17/23 6:15 AM) 9.1 mg/dL (01/15/23 5:45 AM) 9.5 mg/dL (01/14/23 9:15 PM) Digoxin Lvl DH [0.8-2.0 mcg/L] 1.2 mcg/L (01/18/23 5:45 AM) 1.2 mcg/L (01/17/23 6:15 AM) Lactic Acid Lvl DH [0.5-2.2 mmol/L] 1.1 mmol/L (01/16/23 6:00 AM) Magnesium Lvl DH [0.69-1.07 mmol/L] 0.70 mmol/L (01/15/23 5:45 AM) 0.78 mmol/L (01/14/23 9:15 PM) ProBNP DH [<=451 pg/mL] 1151 pg/mL *HI* (01/18/23 5:45 AM) 2182 pg/mL *HI* (01/15/23 5:45 AM) Creatinine [0.80-1.50 mg/dL] .75 mg/dL *LOW* (01/17/23 6:15 AM) .73 mg/dL *LOW* (01/15/23 5:45 AM) .76 mg/dL *LOW* (01/14/23 9:15 PM) CRP [0.0-5.0 mg/L] 43.6 mg/L *HI* (01/16/23 6:00 AM) Baso Absolute DH [0.0-0.2 x10(3)/mcL] 0.0 x10(3)/mcL (01/14/23 9:15 PM) Basophil % DH 0 % *NA* (01/14/23 9:15 PM) Eos % DH 3 % *NA* (01/14/23 9:15 PM) Eos Absolute DH [0.0-0.5 x10(3)/mcL] 0.4 x10(3)/mcL (01/14/23 9:15 PM) Hct DH [40.5-48.5 %] 35.9 % *LOW* (01/17/23 6:15 AM) 33.6 % *LOW* (01/15/23 5:45 AM) 38.6 % *LOW* (01/14/23 9:15 PM) Hgb DH [13.7-16.5 g/dL] 12.0 g/dL *LOW* (01/17/23 6:15 AM) 11.3 g/dL *LOW* (01/15/23 5:45 AM) 12.8 g/dL *LOW* (01/14/23 9:15 PM) Immature Gran % DH 0.50 % *NA* (01/14/23 9:15 PM) Immature Gran DH [0.00-0.05 x10(3)/mcL] 0.07 x10(3)/mcL *HI* (01/14/23 9:15 PM) Lymph % DH 7 % *NA* (01/14/23 9:15 PM) Lymph Absolute DH [0.9-3.2 x10(3)/mcL] 1.0 x10(3)/mcL (01/14/23 9:15 PM) MCHC DH [32.0-35.7 g/dL] 33.4 g/dL (01/17/23 6:15 AM) 33.6 g/dL (01/15/23 5:45 AM) 33.2 g/dL (01/14/23 9:15 PM) MCH DH [27.5-32.1 pg] 32.2 pg *HI* (01/17/23 6:15 AM) 32.4 pg *HI* (01/15/23 5:45 AM) 31.8 pg (01/14/23 9:15 PM) MCV DH [82.9-93.1 fL] 96.2 fL *HI* (01/17/23 6:15 AM) 96.3 fL *HI* (01/15/23 5:45 AM) 96.0 fL *HI* (01/14/23 9:15 PM) Monocy Absolute DH [0.3-0.9 x10(3)/mcL] 0.9 x10(3)/mcL (01/14/23 9:15 PM) Monocyte % DH 6 % *NA* (01/14/23 9:15 PM) MPV DH [7.6-12.9 fL] 10.2 fL (01/17/23 6:15 AM) 9.9 fL (01/15/23 5:45 AM) 10.3 fL (01/14/23 9:15 PM) Neutro Absolute DH [1.7-6.1 x10(3)/mcL] 11.6 x10(3)/mcL *HI* (01/14/23 9:15 PM) Neutrophil % DH 83 % *NA* (01/14/23 9:15 PM) Platelet DH [145-357 x10(3)/mcL] 323 x10(3)/mcL (01/17/23 6:15 AM) 317 x10(3)/mcL (01/15/23 5:45 AM) 371 x10(3)/mcL *HI* (01/14/23 9:15 PM) RBC DH [4.58-5.54 x10(6)/mcL] 3.73 x10(6)/mcL *LOW* (01/17/23 6:15 AM) 3.49 x10(6)/mcL *LOW* (01/15/23 5:45 AM) 4.02 x10(6)/mcL *LOW* (01/14/23 9:15 PM) RDWCV DH [11.4-13.8 %] 12.8 % (01/17/23 6:15 AM) 12.8 % (01/15/23 5:45 AM) 12.9 % (01/14/23 9:15 PM) RDWSD DH [36.0-45.0 fL] 44.8 fL (01/17/23 6:15 AM) 44.8 fL (01/15/23 5:45 AM) 45.1 fL *HI* (01/14/23 9:15 PM) WBC DH [4.0-9.5 x10(3)/mcL] 6.5 x10(3)/mcL (01/17/23 6:15 AM) 12.1 x10(3)/mcL *HI* (01/15/23 5:45 AM) 14.0 x10(3)/mcL *HI* (01/14/23 9:15 PM) SARS-CoV-2 (COVID-19) RNA DH [Not Detected] Not Detected 4 *NA* (01/17/23 2:33 AM) SARS-CoV-2 (COVID-19) RNA Source DH Nasal 5 *NA* (01/17/23 2:33 AM) 1Result Comment: This patient's estimated GFR was calculated using the 2020 CKD- EPI equation. The estimated GFR can vary from the measured GFR by up to 30% in the absence of rapidly changing kidney function. Assessment of the estimated GFR is not appropriate when creatinine concentrations are rapidly changing. For clinical situations in which a more precise estimate of GFR is necessary, consider alternative methods of GFR estimation such as a 24-hour urine creatinine clearance. Assignment of CKD stage 1-5 for patients with an eGFR near the transition point between stages may be based on clinical assessment of muscle mass and symptoms in addition to eGFR. 2Result Comment: This patient's estimated GFR was calculated using the 2020 CKD- EPI equation. The estimated GFR can vary from the measured GFR by up to 30% in the absence of rapidly changing kidney function. Assessment of the estimated GFR is not appropriate when creatinine concentrations are rapidly changing. For clinical situations in which a more precise estimate of GFR is necessary, consider alternative methods of GFR estimation such as a 24-hour urine creatinine clearance. Assignment of CKD stage 1-5 for patients with an eGFR near the transition point between stages may be based on clinical assessment of muscle mass and symptoms in addition to eGFR. 3Result Comment: This patient's estimated GFR was calculated using the 2020 CKD- EPI equation. The estimated GFR can vary from the measured GFR by up to 30% in the absence of rapidly changing kidney function. Assessment of the estimated GFR is not appropriate when creatinine concentrations are rapidly changing. For clinical situations in which a more precise estimate of GFR is necessary, consider alternative methods of GFR estimation such as a 24-hour urine creatinine clearance. Assignment of CKD stage 1-5 for patients with an eGFR near the transition point between stages may be based on clinical assessment of muscle mass and symptoms in addition to eGFR. 4Result Comment: This result should be interpreted in combination with the clinical observations, patient history and epidemiological information in making a final diagnosis. For testing of asymptomatic individuals, assay performance characteristics and clinical utility have not been evaluated. Testing for SARS-CoV-2 (Severe acute respiratory syndrome coronavirus 2, formerly known as 2019 novel coronavirus or 2019-nCoV) to aid in the diagnosis of COVID-19 is performed using the [employer] m SARS-CoV-2 Assay as authorized by the FDA Emergency Use Authorization (EUA). This EUA assay is intended for In-vitro Diagnostic (IVD) use with respiratory specimens such as nasopharyngeal swabs collected from individuals during the acute phase of infection. This assay is performed based on the instructions for use provided by [employer] and additional guidance provided by CDC and FDA. Testing is performed in the [facility] within the Department of Pathology and Laboratory Medicine at [facility], certified under the Clinical Laboratory Improvement Amendments of 1988 (CLIA), 42 U.S.C. 263a, to perform high complexity tests. Assay performance has been verified according to clinical laboratory regulatory requirements for use with specimens collected from individuals suspected of COVID-19. Test results are provided above. A result of Not Detected indicates that the viral RNA target is not present above the limit of detection, but does not preclude SARS-CoV-2 infection. False negative results may occur if a specimen is improperly collected, transported or handled; if amplification inhibitors are present; or if inadequate numbers of viral particles are present in the specimen. When a diagnostic test is negative, the possibility of a false negative result should be considered in the context of a patient's recent exposures and the presence of clinical signs and symptoms consistent with COVID-19. A result of Detected indicates that RNA from SARS-CoV-2 was detected and the patient is infected. As required or requested by public health authorities, positive specimens may be sent for additional testing. Positive and negative predictive values for this test are highly dependent on disease prevalence. A result of Invalid indicates that neither the viral RNA targets nor the internal control target was detected. An invalid result suggests the presence of inhibitors. Recollection and re-testing is recommended in the case of an invalid result. CDC COVID-19 criteria for testing on human specimens and clinical management guidance information are available at the CDC Coronavirus Disease 2019 (COVID-19) webpage under Information for Healthcare Professionals (https://www.cdc.gov/coronavirus/2019-ncov/hcp/index.html) Additional information about this and other EUA tests can be found in provider and patient fact sheets at the following FDA website: https://www.fda.gov/medical-devices/rcntcckoyid-cpanojx-0461-ysamg-92-eecdggmtl- xtq-skayvzukzsdiom-npuawjg-devices/irxxa-gptjpwoinrb-keal Test performed at: [facility], [place] [address] 5Result Comment: Test performed at: [facility], [place] [address] Radiology Reports * Exam Date Time Procedure Performing Provider Status 01/15/23 7:38 AM US Point of Care MORGAN Jones; Edgar morales Notes: (US Point of Care) Reason For Exam: eval US POINT OF CARE Point of care US performed by ordering provider. Please refer to provider note for interpretation Final Dictated: 01/15/2023 7:38 am Generated Domain User for [id number] Signed (Electronic Signature): 01/15/2023 7:38 am Signed by: Generated Domain User for [id number] Technologist: MORGAN Jones * Exam Date Time Procedure Performing Provider Status 01/15/23 7:09 AM XR Chest 2 Views Patrick Mary W, RT R; Modified Notes: (XR Chest 2 Views) Reason For Exam: rapid atrial flutter, follow up pleural effusions, evaluate forpulmonary edema XR CHEST 2 VIEWS EXAMINATION: XR CHEST 2 VIEWS CLINICAL HISTORY: rapid atrial flutter, follow up pleural effusions, evaluate for pulmonary edema TECHNIQUE: PA and lateral views of the chest COMPARISON: CT chest 12/19/2016 FINDINGS: Moderate cardiomegaly. Anterior left lower lobe opacity with obscuration of the left hemidiaphragm. Mild interstitial edema with trace left pleural effusion. No effusion on the right. No pneumothorax. No acutely displaced rib fracture. IMPRESSION: 1. Moderate cardiomegaly with mild interstitial edema and trace left effusion. 2. Left lower lobe opacity, concerning for infectious versus inflammatory process. I have personally reviewed the image(s) and the resident's interpretation and agree with the findings, Kelly Lion MD at 01/15/2023 7:18 AM Thank you for letting us participate in the care of this patient. If you are a health care provider and have any questions regarding this report, please contact the number below. For patients who have questions please contact the health patient care that requested your imaging first. Electronically signed by: Kelly Lion MD, [facility] ([phone]), at 01/15/2023 7:18 AM Final Dictated: 01/15/2023 7:23 am Kelly Lion M.D. Signed (Electronic Signature): 01/15/2023 7:18 am Signed by: Kelly Lion M.D. Transcribed by: CLEMENTINA * Exam Date Time Procedure Performing Provider Status 01/14/23 8:30 PM US Point of Care MORGAN Jones; Edgar morales Notes: (US Point of Care) Reason For Exam: eval US POINT OF CARE Point of care US performed by ordering provider. Please refer to provider note for interpretation Final Dictated: 01/14/2023 8:30 pm Generated Domain User for [id number] Signed (Electronic Signature): 01/14/2023 8:30 pm Signed by: Generated Domain User for [id number] Technologist: MORGAN Jones Vital Signs Most recent to oldest [Reference Range]: 1 2 3 Temperature Oral [35.8-37.3 DegC] 36.8 DegC (01/18/23 2:15 PM) 36.8 DegC (01/18/23 11:13 AM) 36.5 DegC (01/18/23 8:02 AM) Temperature Oral (DegF) 98.24 DegF (01/18/23 2:15 PM) 98.24 DegF (01/18/23 11:13 AM) 97.7 DegF (01/18/23 8:02 AM) Temperature Temporal Artery [36.3-37.8 DegC] 36.9 DegC (01/16/23 9:18 PM) Apical Heart Rate [60-100 bpm] 72 bpm (01/18/23 8:07 AM) 76 bpm (01/17/23 5:37 PM) 65 bpm (01/17/23 8:05 AM) Peripheral Pulse Rate [60-100 bpm] 80 bpm (01/18/23 5:11 AM) 65 bpm (01/18/23 12:45 AM) 55 bpm *LOW* (01/17/23 9:56 PM) Heart Rate Monitored [60-100 bpm] 71 bpm (01/18/23 2:15 PM) 58 bpm *LOW* (01/18/23 11:13 AM) 86 bpm (01/18/23 10:20 AM) Respiratory Rate [14-20 br/min] 16 br/min (01/18/23 2:15 PM) 16 br/min (01/18/23 11:13 AM) 18 br/min (01/18/23 8:02 AM) Blood Pressure [90-140/60-90 mmHg] 129/72mmHg (01/18/23 2:15 PM) 123/66mmHg (01/18/23 8:02 AM) Systolic Blood Pressure [90-140 mmHg] 106 mmHg (01/18/23 11:13 AM) Diastolic Blood Pressure [60-90 mmHg] 54 mmHg *LOW* (01/18/23 11:13 AM) Mean Arterial Pressure, Cuff [70-110 mmHg] 102 mmHg (01/18/23 5:11 AM) 97 mmHg (01/18/23 12:45 AM) 88 mmHg (01/17/23 9:56 PM) BP Site Left arm (01/18/23 5:11 AM) Left arm (01/18/23 12:45 AM) Left arm (01/17/23 9:56 PM) SpO2 [92-100 %] 99 % (01/18/23 2:15 PM) 97 % (01/18/23 11:13 AM) 96 % (01/18/23 10:20 AM) SpO2 Location Left hand (01/18/23 5:11 AM) Right hand (01/18/23 12:45 AM) Right hand (01/17/23 9:56 PM) BP Method Automatic (01/18/23 5:11 AM) Automatic (01/18/23 12:45 AM) Automatic (01/17/23 9:56 PM) Height 187 cm (01/14/23 10:00 PM) Height/Length Measured (inches) 73.6 in (01/14/23 10:00 PM) Height/Length Dosing 187 cm (01/14/23 10:00 PM) Weight 93.7 kg (01/18/23 5:29 AM) 95 kg (01/17/23 5:13 AM) 96.2 kg (01/16/23 2:33 AM) Weight Measured (lbs) 216.935 lb (01/14/23 10:00 PM) Weight Dosing 98.4 kg (01/14/23 10:00 PM) Scale Type Standing (01/16/23 2:33 AM) BSA Measured 2.26 m2 (01/14/23 10:00 PM) Body Mass Index 28.14 kg/m2 (01/14/23 10:00 PM) Social History Social History Type Response Tobacco Former tobacco user Tobacco Use:. 1 Sex 1Less than a ppd when teenager. Quit 1962. Hospital Discharge Instructions Patient Education 01/18/2023 14:21:16 AA Blank Template (Custom) Please take your Heart rate prior to taking diltiazem. Keep these numbers in a logbook to present to your Primary care doctor for dose adjustments. HOLD diltiazem if Heart rate is less than 60 beats per minute. If any questions, call [phone] Hernandez 01/17/2023 14:19:43 Atrial Flutter Atrial Flutter Atrial flutter is a type of abnormal heart rhythm (arrhythmia). The heart has an electrical system that tells it how to beat. In atrial flutter, the signals move rapidly in the top chambers of the heart (the atria). This makes your heart beat very fast. Atrial flutter can come and go, or it can be permanent. The goal of treatment is to prevent blood clots from forming, control your heart rate, or restore your heartbeat to a normal rhythm. If this condition is not treated, it can cause serious problems, such as a weakened heart muscle (cardiomyopathy) or a stroke. What are the causes? This condition is often caused by conditions that damage the heart's electrical system. These include: ??? Heart conditions and heart surgery. These include heart attacks and open- heart surgery. ??? Lung problems, such as COPD or a blood clot in the lung (pulmonary embolism, or PE). ??? Poorly controlled high blood pressure (hypertension). ??? Overactive thyroid (hyperthyroidism). ??? Diabetes. In some cases, the cause of this condition is not known. What increases the risk? You are more likely to develop this condition if: ??? You are an elderly adult. ??? You are a man. ??? You are overweight (obese). ??? You have obstructive sleep apnea. ??? You have a family history of atrial flutter. ??? You have diabetes. ??? You drink a lot of alcohol, especially binge drinking. ??? You use drugs, including cannabis. ??? You smoke. What are the signs or symptoms? Symptoms of this condition include: ??? A feeling that your heart is pounding or racing (palpitations). ??? Shortness of breath. ??? Chest pain. ??? Feeling dizzy or light-headed. ??? Fainting. ??? Low blood pressure (hypotension). ??? Fatigue. ??? Tiring easily during exercise or activity. In some cases, there are no symptoms. How is this diagnosed? This condition may be diagnosed with: ??? An electrocardiogram (ECG) to check electrical signals of the heart. ??? An ambulatory cardiac catheterization technician to record your heart's activity for a few days. ??? An echocardiogram to create pictures of your heart. ??? A transesophageal echocardiogram (ROLAND) to create even better pictures of your heart. ??? A stress test to check your blood supply while you exercise. ??? Imaging tests, such as a CT scan or chest X-ray. ??? Blood tests. How is this treated? Treatment depends on underlying conditions and how you feel when you experience atrial flutter. This condition may be treated with: ??? Medicines to prevent blood clots or to treat heart rate or heart rhythm problems. ??? Electrical cardioversion to reset the heart's rhythm. ??? Ablation to remove the heart tissue that sends abnormal signals. ??? Left atrial appendage closure to seal the area where blood clots can form. In some cases, underlying conditions will be treated. Follow these instructions at home: Medicines ??? Take paqi-cez-dkcoioz and prescription medicines only as told by your health care provider. ??? Do not take any new medicines without talking to your health care provider. ??? If you are taking blood thinners: ??? Talk with your health care provider before you take any medicines that contain aspirin or NSAIDs, such as ibuprofen. These medicines increase your risk for dangerous bleeding. ??? Take your medicine exactly as told, at the same time every day. ??? Avoid activities that could cause injury or bruising, and follow instructions about how to prevent falls. ??? Wear a medical alert bracelet or carry a card that lists what medicines you take. Lifestyle ??? Eat heart-healthy foods. Talk with a dietitian to make an eating plan that is right for you. ??? Do not use any products that contain nicotine or tobacco, such as cigarettes, e-cigarettes, andchewing tobacco. If you need help quitting, ask your health care provider. ??? Do not drink alcohol. ??? Do not use drugs, including cannabis. ??? Lose weight if you are overweight or obese. ??? Exercise regularly as instructed by your health care provider. General instructions ??? Do not use diet pills unless your health care provider approves. Diet pills may make heart problems worse. ??? If you have obstructive sleep apnea, manage your condition as told by your health care provider. ??? Keep all follow-up visits as told by your health care provider. This is important. Contact a health care provider if you: ??? Notice a change in the rate, rhythm, or strength of your heartbeat. ??? Are taking a blood thinner and you notice more bruising. ??? Have a sudden change in weight. ??? Tire more easily when you exercise or do heavy work. Get help right away if you have: ??? Pain or pressure in your chest. ??? Shortness of breath. ??? Fainting. ??? Increasing sweating with no known cause. ??? Side effects of blood thinners, such as blood in your vomit, stool, or urine, or bleeding that cannot stop. ??? Any symptoms of a stroke. BE FAST is an easy way to remember the main warning signs of a stroke: ??? B - Balance. Signs are dizziness, sudden trouble walking, or loss of balance. ??? E - Eyes. Signs are trouble seeing or a sudden change in vision. ??? F - Face. Signs are sudden weakness or numbness of the face, or the face or eyelid drooping on one side. ??? A - Arms. Signs are weakness or numbness in an arm. This happens suddenly and usually on one side of the body. ??? S - Speech. Signs are sudden trouble speaking, slurred speech, or trouble understanding what people say. ??? T - Time. Time to call emergency services. Write down what time symptoms started. ??? Other signs of a stroke, such as: ??? A sudden, severe headache with no known cause. ??? Nausea or vomiting. ??? Seizure. ??? These symptoms may represent a serious problem that is an emergency. Do not wait to see if the symptoms will go away. Get medical help right away. Call your local emergency services (911 in the [place] Do not drive yourself to the hospital. Summary ??? Atrial flutter is an abnormal heart rhythm that can give you symptoms of palpitations, shortness of breath, or fatigue. ??? Atrial flutter is often treated with medicines to keep your heart in a normal rhythm and to prevent a stroke. ??? Get help right away if you cannot catch your breath, or have chest pain or pressure. ??? Get help right away if you have signs or symptoms of a stroke. This information is not intended to replace advice given to you by your health care provider. Make sure you discuss any questions you have with your health care provider. Document Revised: 05/10/2020 Document Reviewed: 05/10/2020 [employer] Patient Education ?? 2021 [employer]. 01/17/2023 14:19:25 Community-Acquired Pneumonia, Adult, Lmay-hq-Fkxa Community-Acquired Pneumonia, Adult Pneumonia is an infection of the lungs. It causes irritation and swelling in the airways of the lungs. Mucus and fluid may also build up inside the airways. This may cause coughing and trouble breathing. One type of pneumonia can happen while you are in a hospital. A different type can happen when you are not in a hospital (community-acquired pneumonia). What are the causes? This condition is caused by germs (viruses, bacteria, or fungi). Some types of germs can spread from person to person. Pneumonia is not thought to spread from person to person. What increases the risk? You are more likely to develop this condition if: ??? You have a long-term (chronic) disease, such as: ??? Disease of the lungs. This may be chronic obstructive pulmonary disease (COPD) or asthma. ??? Heart failure. ??? Cystic fibrosis. ??? Diabetes. ??? Kidney disease. ??? Sickle cell disease. ??? HIV. ??? You have other health problems, such as: ??? Your body's defense system (immune system) is weak. ??? A condition that may cause you to breathe in fluids from your mouth and nose. ??? You had your spleen taken out. ??? You do not take good care of your teeth and mouth (poor dental hygiene). ??? You use or have used tobacco products. ??? You travel where the germs that cause this illness are common. ??? You are near certain animals or the places they live. ??? You are older than 65 years of age. What are the signs or symptoms? Symptoms of this condition include: ??? A cough. ??? A fever. ??? Sweating or chills. ??? Chest pain, often when you breathe deeply or cough. ??? Breathing problems, such as: ??? Fast breathing. ??? Trouble breathing. ??? Shortness of breath. ??? Feeling tired (fatigued). ??? Muscle aches. How is this treated? Treatment for this condition depends on many things, such as: ??? The cause of your illness. ??? Your medicines. ??? Your other health problems. Most adults can be treated at home. Sometimes, treatment must happen in a hospital. ??? Treatment may include medicines to kill germs. ??? Medicines may depend on which germ caused your illness. Very bad pneumonia is rare. If you get it, you may: ??? Have a machine to help you breathe. ??? Have fluid taken away from around your lungs. Follow these instructions at home: Medicines ??? Take vbze-das-uqoazvm and prescription medicines only as told by your doctor. ??? Take cough medicine only if you are losing sleep. Cough medicine can keep your body from takingmucus away from your lungs. ??? If you were prescribed an antibiotic medicine, take it as told by your doctor. Do not stop taking the antibiotic even if you start to feel better. Lifestyle ??? Do not drink alcohol. ??? Do not use any products that contain nicotine or tobacco, such as cigarettes, e-cigarettes, andchewing tobacco. If you need help quitting, ask your doctor. ??? Eat a healthy diet. This includes a lot of vegetables, fruits, whole grains, low-fat dairy products, and low-fat (lean) protein. General instructions ??? Rest a lot. Sleep for at least 8 hours each night. ??? Sleep with your head and neck raised. Put a few pillows under your head or sleep in a recliningchair. ??? Return to your normal activities as told by your doctor. Ask your doctor what activities are safe for you. ??? Drink enough fluid to keep your pee (urine) pale yellow. ??? If your throat is sore, rinse your mouth often with salt water. To make salt water, dissolve ?1 tsp (3???6 g) of salt in 1 cup (237 mL) of warm water. ??? Keep all follow-up visits as told by your doctor. This is important. How is this prevented? You can lower your risk of pneumonia by: ??? Getting the pneumonia shot (vaccine). These shots have different types and schedules. Ask your doctor what works best for you. Think about getting this shot if: ??? You are older than 65 years of age. ??? You are 19???65 years of age and: ??? You are being treated for cancer. ??? You have long-term lung disease. ??? You have other problems that affect your body's defense system. Ask your doctor if you have oneof these. ??? Getting your flu shot every year. Ask your doctor which type of shot is best for you. ??? Going to the dentist as often as told. ??? Washing your hands often with soap and water for at least 20 seconds. If you cannot use soap and water, use hand tie tape machine operator. Contact a doctor if: ??? You have a fever. ??? You lose sleep because your cough medicine does not help. Get help right away if: ??? You are short of breath and this gets worse. ??? You have more chest pain. ??? Your sickness gets worse. This is very serious if: ??? You are an older adult. ??? Your body's defense system is weak. ??? You cough up blood. These symptoms may be an emergency. Do not wait to see if the symptoms will go away. Get medical help right away. Call your local emergency services (911 in the [place] Do not drive yourself to the hospital. Summary ??? Pneumonia is an infection of the lungs. ??? Community-acquired pneumonia affects people who have not been in the hospital. Certain germs can cause this infection. ??? This condition may be treated with medicines that kill germs. ??? For very bad pneumonia, you may need a hospital stay and treatment to help with breathing. This information is not intended to replace advice given to you by your health care provider. Make sure you discuss any questions you have with your health care provider. Document Revised: 08/29/2020 Document Reviewed: 08/29/2020 [employer] Patient Education ?? 2021 [employer] Follow Up Care 01/14/2023 16:32:27 With:Mirna Barrera Address: [address] [place] [address] When:01/24/2023 11:15:00 Comments:Please follow up your hospital stay with your Primary Care Provider. Arrive 15??minutes early to this appointment. With:Gonzales Torres Address: [address] [place] [address]- [phone] When:02/05/2023 10:40:00 Comments:Please arrive at [address] for cardiology appointment by 10:20 a.m. Discharge summary * BART GERMAIN RN: PERFORM Event Display: Discharge Note Authored Date: [id number] Pt's here ot pick pt up, he was taken out in w/c to their car. Pt has meds for tonight's and morning's doses. he also has eye drops. He has printed d/c instuctions. Pt states he will take HR prior to diltiazem and hold dose if <60. He states he will take BP daily and follow up with providers and scheduled. saline locks have been removed. [Electronically Signed on: 01/18/2023 15:37 EST] BART GERMAIN RN RN [Verified on: 01/18/2023 15:37 EST] BART GERMAIN RN RN * Zachery Hernandez: MODIFY, PERFORM, MODIFY, MODIFY, MODIFY, MODIFY, MODIFY, MODIFY, MODIFY Event Display: Discharge Summary Authored Date: [id number] MIRNA MILTON :1945 Age:77 years Sex:Male Visit Date:01/14/2023 Primary Care Physician: Mirna Barrera Admission Information Admission date:??01/14/2023 19:58:08? Discharge date:?01.18.2023 ?? Service:??Acute?? Primary Care Doctor:??Mirna Barrera? Discharge Diagnosis:1:Atrial flutter with rapid ventricular response; 2:Community acquired pneumonia of left lung; 3:Acute congestive heart failure; 4:Atrial fibrillation; 5:HTN (hypertension)? Discharge Recommendations: ?? His TTE showed new??tyfrabkl-ar-zvmzub tricuspid regurgitation and a??RVSP of 39mmHg; however this study was obtained while??he was in uncontrolled atrial flutter in the [facility] ED, which on review of the vitals chart there was with rates as high as 160s. Before any further intervention or workup is considered; we recommend a repeat??study while he is rate-controlled. ?? He??is now on digoxin, his initial post-load level??was 1.2; the repeat was <insert> and he was discharged on <>mcg of digoxin daily; he should have his level routinely checked to ensure therapeutic range. He also will have follow-up with [facility]??to re-assess him. They also recommendeddischarge with a ziopatch, which was placed for him on the day of discharge from our hospital. ?? He was noted to have night-time episodes of desaturation, we suggest a home polysomnography test for further investigation now that he is not acutely ill. ?? Hospital Course 77 y/o M with hx of paroxysmal Afib on rivaroxaban??(s/p ablation 2017 and cardioversion 2019), CAD(s/p PCI 2005 at [facility], stents to LAD x 2/LCx x 2/ramus), HTN, HLD, AAA (since 2018) who presented [facility] today due to lightheadedness and shortness of breath. He was recently diagnosed with left sided pneumonia over a week ago also at [facility] emergency department. He said he had a fever of 102F and shortness of breath then. He was prescribed levofloxacin 750 mg QD and he completed 7 days of therapy.The past couple days, he has been waking up from sleep with sudden shortness of breath. But no orthopnea. Some shortness of breath on exertion (but no different from a week ago). Still has a cough but no longer productive. He??reports??he feels he has been in Afib for the past week. His HR at home??has been in the 110s.??He reports couple weeks ago, his HR was 60s.??Today he felt lightheaded and dizzy so he went back to [facility] emergency department. He hadn't taken any of his morning medications. At [facility], his HR was in the 150-160s bpm. Work up with CT angio chest??revealed no PE but??report indicated that he had a significant area of infiltrate in the left lower lobe involving posterior and lateral basal segments. Also reported a small-moderate left pleural effusion. There was cardiomegaly,enlarged ascending thoracic aorta with 4.3 cm diameter.??No pericardial effusion. WBC was 12. Renalfunction normal. Patient was given IV ceftriaxone and PO doxy. He was also given three IV metoprolol pushes at 5 mg each as well as two PO metoprolol at 75 mg each. He also received NS bolus of 250ccthree times. His COVID and influenza swabs were negative. Transfer request made to [facility] for acute inpatient bed due to capacity/staffing issues at [facility]. Patient reports that his HR has been 130s for mostly the entire time he was in the [facility] ED and during his EMS transport to [facility]. [1] ?? Patient on arrival showed persistent regular narrow complex tachycardia with HR of 140. Did not respond to IV metoprolol 5 mg x 1. EKG appears to show atrial flutter 3:1 block mostly, sometimes also with variable block. Bedside POCUS??showed bilateral b-lines with dilated IVC and collapsibility ~20%. Suspect patient also has mild acute congestive heart failure, probably diastolic (though would need repeat TTE to confirm). ProBNP at [facility] was ~2600 (previous baseline 400s at in 2018). Given this was his fourth IV metoprolol push today (including the ones given at [facility]) and none of them appear to have helped his HR, will give IV diltiazem and start diltiazem drip.?? Given IV lasix 20 mg x 1 with over 1L UOP. Moved to ED space temporarily??to start diltiazem drip under closer monitoring. Discussed with Cardiology who felt that the atrial flutter is secondary to the pneumonia and possible underlying CHF and will be difficult to control unless those two things are under control. Cardiology recommends maximizing PO metoprolol and PO diltiazem rather than diltiazem drip and that it is fine for HR to remain??~ 130 bpm while on PO AV gordo blockers until underlying systemic issues (CHF, pneumonia)??resolve. Also suggested digoxin loading if AV gordo blockers are maximized. ?? Patient's HR was unaffected by IV diltiazem drip. HR remained 128-130 bpm consistently whether running at 5mg/hr or 15mg/hr. PO diltiazem maximized to 90 mg q6h while IV diltiazem drip was weaned. POmetoprolol tartrate titrated to 50 mg q6h. IV digoxin 0.25mg??loading q6h started around 3:40am. Repeat CXR shows cardiomegaly with mild interstitial edema with trace left pleural effusion. ProBNP improved from 2700 at [facility] to 2100. [2] ?? After completion of IV loading of digoxin, he converted to atrial fibrillation with good rate control, averaging around 70/min. 5 days of a combination of IV and PO antibiotics for his pneumonia werecompleted on 01/18.??He was titrated and transitioned to extended-release formulations of metoprololand diltiazem and discharged with follow-up with his PCP, charger, and EP. Procedures and Treatment Provided # Atrial flutter with RVR, resolved # Now in A-Fib, rate controlled - IV diltiazem drip weaned off, continued on PO diltiazem 90 mg TID while awake. However, heart rate continued to improve with resolution of infection. Counselled to take his HR (has equipment already at home), and hold if HR <60. Also instructed to bring a log book of his HRs to his PCP visit in 1 week to assess need for reduction in dose. -??Used to be on metoprolol succinate 75mg BID at home, was placed on tartrate 50mg q6h; 01/17 switched to 200mg qD -- will discharge on this dose - sp IV digoxin loading 0.25 mg q6h x 4 doses;??then 250mcg PO??daily (PO started 01/16 AM) - digoxin level 1.2 on 01/17; on subsequent testing 01/18 it was??1.2??so he was discharged on 250 mcg of digoxin daily - rivaroxaban 20mg daily was continued through admission - Discussed with EP; plan is for ziopatch on discharge and outpatient follow- up with them. - If returns back into refractory a-flutter with high ventricular rates; per EP, he can be chemically cardioverted with amiodarone since he has been on rivaroxaban for AC ?? # Mild acute congestive heart failure, likely 2/2 tachycardia; resolved - sp furosemide 20mg IV x1 01/15, appears euvolemic currently; no B-line burden, no evidence of venous congestion despite IVC dilation (likely from TR). - Daily weights-downtrending off lasix - TTE at [facility] ED report from 01/14 faxed over: Normal LV wall thickness, size. Estimated EF 55-60%.No RWMA. Grossly normal RV size/function. Mild dilation of both atria. The AV is sclerotic with trace regurgitation. Mitral annular calcification with jzar-ad-ysdcevfo MR. Normal TV appearance with mo xehvxp-ek-ydvndq TR. Estimated RVSP 39. The ascending aorta is mildly dilated. Of note the patientwas in uncontrolled atrial fibrillation throughout the study with zzfd-ze-ackk variation. Recommend repeat TTE outpatient with HR better controlled. - pBNP on discharge day was 1151 (initially >2000) ?? # Pneumonia, left lower lobe #hypoxia -??Completed 5 days of IV??ceftriaxone and PO doxycycline (last day 01/18) -overnight oximetry performed night prior to discharge, did not qualify for home oxygen. Recommended scheduling a sleep study with PCP to assess for ANGE. ?? #CAD s/p BRENDA -lisinopril was initially held out of concern for precipitating hypotension; he was resumed at a lower dose of 5mg prior to discharge; this can be titrated as tolerated outpatient Physical Exam Vitals & Measurements T:??36.5?C ??(Oral)?? TMIN:??36.5?C ??(Oral)?? TMAX:??37.1?C ??(Oral)?? HR:??63??(Monitored)?? RR:??17?? BP:??128/78?? SpO2:??96%?? WT:??95??kg?? Pain Score:??0 = No pain?? O2 Flow Rate:??1?? O2 Therapy:??Room air?? Comfortable in bed, AOx3 NAD mmm, no JVD, no pallor irregular, normal rate, no MRG appreciated soft, NT/ND. + BS no pitting??edema . warm extremities with good perfusion?? Social History Alcohol Daily- Comments: 2 shots per day Electronic Cigarette/Vaping Electronic Cigarette Use: Never. Employment/School Retired Home/Environment Lives with Spouse. Living situation Home/Independent. Substance Abuse Never Tobacco Former tobacco user Tobacco Use:.- Comments: Less than a ppd when teenager. Quit 1963. Lab Results Last 24 Hours?? Chemistry Event Name?? Event Result?? Date/Time?? ProBNP DH 1151 pg/mL??High 01/18/23 05:45:00 ? All Other Results Event Name?? Event Result?? Date/Time?? Digoxin Lvl DH 1.2 mcg/L 01/18/23 05:45:00 ? Diagnostic Results X-Ray: ?? XR Chest 2 Views ?? 01/15/23 07:18:00 EXAMINATION: XR CHEST 2 VIEWS ?? CLINICAL HISTORY: rapid atrial flutter, follow up pleural effusions, evaluate for pulmonary edema ? TECHNIQUE: PA and lateral views of the chest ?? COMPARISON: CT chest 12/19/2016 ?? FINDINGS: Moderate cardiomegaly. Anterior left lower lobe opacity with obscuration of the left hemidiaphragm. Mild interstitial edema with trace left pleural effusion. No effusion on the right. No pneumothorax. No acutely displaced rib fracture. ?? IMPRESSION: 1. Moderate cardiomegaly with mild interstitial edema and trace left effusion. 2. Left lower lobe opacity, concerning for infectious versus inflammatory process. ?? I have personally reviewed the image(s) and the resident???s interpretation and agree with the findings, Kelly Lion MD at 01/15/2023 7:18 AM ?? Thank you for letting us participate in the care of this patient. If you are a health care provider and have any questions regarding this report, please contact the number below. For patients who have questions please contact the health patient care that requested your imaging first. ?? Electronically signed by: Kelly Lion MD, [facility] ([phone]), at 01/15/2023 7:18 AM ?? Signed By: Kelly Lion M.D. Computed Tomography:?? Ultrasound: ?? US Point of Care ?? 01/15/23 07:38:00 Point of care US performed by ordering provider. Please refer to provider note for interpretation ?? Signed By: Generated Domain User for [id number] ?? US Point of Care ?? 01/14/23 20:30:00 Point of care US performed by ordering provider. Please refer to provider note for interpretation ?? Signed By: Generated Domain User for [id number] ?? Discharge Plan 1.??Atrial flutter with rapid ventricular response??I48.92 2.??Community acquired pneumonia of left lung??J18.9 3.??Acute congestive heart failure??I50.9 4.??Atrial fibrillation??I48.91 5.??HTN (hypertension)??I10 Orders: dilTIAZem, 90 mg = 3 tab(s), Tab, Oral, q6hr, Routine, Start date: 01/15/23 12:00:00 EST, 01/15/23 12:00:00 EST lisinopril, 5 mg = 1 tab(s), Tab, Oral, Daily, NOW, Start date: 01/17/23 11:51:00 EST, 01/17/23 11:51:00 EST Metoprolol Succinate ER, 200 mg = 2 tab(s), Tab-ER, Oral, Daily, Routine, Start date: 01/17/23 8:30:00 EST, 01/16/23 16:49:00 EST .Hemogram DH, Blood, AM Draw collect, 01/17/23 5:00:00 EST, Stop date 01/17/23 5:00:00 EST Digoxin DH, Blood, AM Draw collect, 01/18/23 5:00:00 EST, Stop date 01/18/23 5:00:00 EST ProBNP DH, Blood, AM Draw collect, 01/18/23 5:00:00 EST, Stop date 01/18/23 5:00:00 EST All Diagnoses This Visit Atrial flutter with rapid ventricular response Community acquired pneumonia of left lung Acute congestive heart failure Atrial fibrillation HTN (hypertension) Discharge Disposition Home Patient Education Atrial Fibrillation Atrial Flutter Community-Acquired Pneumonia, Adult, Gkry-fi-Twih Follow Up With When Contact Information Gonzales Torres 02/05/2023 10:40 AM EST [address] [place] [address]- [phone] Additional Instructions: Please arrive at [address] for cardiology appointment by 10:20 a.m. Mirna Barrera 01/24/2023 11:15 AM EST [address] [place] [address] Additional Instructions: Please follow up your hospital stay with your Primary Care Provider. Arrive 15??minutes early to this appointment. Medication Reconciliation New Prescription digoxin (digoxin 125 mcg (0.125 mg) oral tablet)2 tab(s) Oral every day. Refills: 1. ?? dilTIAZem (dilTIAZem 30 mg oral tablet)2 tab(s) Oral 3 times a day. Refills: 0. ?? Changed lisinopril (lisinopril 5 mg oral tablet)1 tab(s) Oral every day. Refills: 0. ?? metoprolol (metoprolol succinate 200 mg oral tablet, extended release)1 tab(s) Oral every day. Refills: 1. ?? Unchanged atorvastatin (atorvastatin 10 mg oral tablet)1 tab(s) Oral every day. ?? rivaroxaban (rivaroxaban 20 mg oral tablet)1 tab(s) Oral once a day (in the evening). ?? timolol ophthalmic (timolol maleate 0.5% ophthalmic solution)1 Drops Ophthalmic 2 times a day. Professional Services/Counseling More than 30 minutes spent on discharge planning and preparation. ?? [1]??H & P; Jesus Patino 01/14/2023 22:33 EST [2]??Progress/SOAP Note; Jesus Patino 01/15/2023 05:46 EST [Electronically Signed on: 01/18/2023 08:49 EST] Zachery Hernandez M.D. [Electronically Signed on: 01/18/2023 08:52 EST] Zachery Hernandez M.D. [Electronically Signed on: 01/18/2023 10:43 EST] Zachery Booth M.D. [Electronically Signed on: 01/18/2023 13:59 EST] Zachery Booth M.D. [Verified on: 01/18/2023 08:49 EST] Zachery Hernandez M.D. Discharge instructions * BART GERMAIN RN: PERFORM Event Display: Discharge Instructions Authored Date: [id number] MIRNA MILTON :1945 Age:77 years Sex:Male Visit Date:01/14/2023 Primary Care Physician: Mirna [facility]rera [facility] Discharge Instructions We would like to thank you for allowing us to assist you with your healthcare needs. The following includes patient education materials and information regarding your injury/illness. After you leave the hospital, you may get your health information including your test results, physician notes and discharge information by accessing your Patient Portal. Medications What How Much When Instructions Next Dose New digoxin (digoxin 125 mcg (0.125 mg) oral tablet) 2 tab(s) Oral Every day Refills: 1 Pickup at [facility] New dilTIAZem (dilTIAZem 30 mg oral tablet) 3 tab(s) Oral Three times a day (with meals) Pickup at [facility] Changed lisinopril (lisinopril 5 mg oral tablet) 1 tab(s) Oral Every day Pickup at [facility] Changed metoprolol (metoprolol succinate 200 mg oral tablet, extended release) 1 tab(s) Oral Every day Pickup at [facility] Unchanged atorvastatin (atorvastatin 10 mg oral tablet) 1 tab(s) Oral Every day Unchanged rivaroxaban (rivaroxaban 20 mg oral tablet) 1 tab(s) Oral Once a day (in the evening) Unchanged timolol ophthalmic (timolol maleate 0.5% ophthalmic solution) 1 Drops Ophthalmic 2 times a day Pharmacy Information [facility]: [address] [facility] [place], [place] [id number] [phone] Your Summary Your Care Team Admitting Physician - Alan Diaz MD Attending Physician - Alan Diaz MD Primary Care Physician - Mirna Barrera Your Diagnosis Atrial flutter with rapid ventricular response Community acquired pneumonia of left lung Acute congestive heart failure Atrial fibrillation HTN (hypertension) Problems Ongoing - Any problem that you are currently receiving treatment for. AAA (abdominal aortic aneurysm) Atrial fibrillation BPH (benign prostatic hyperplasia) Brain abscess Coronary atherosclerosis of eagle coronary artery 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 HLD (hyperlipidemia) HTN (hypertension) Internal hemorrhoid Metabolic syndrome X Moderate mitral regurgitation S/P coronary artery stent placement Syncope Tests Performed/Pending Basic Metabolic Panel DH BMP DH CBC DH CBC DH CBC w/Diff DH CMP DH CRP Digoxin DH Scanlon Hold?-- Results Pending -- Lactate DH Magnesium DH ProBNP DH SARS CoV-2 DH US Point of Care XR Chest 2 Views Discharge Vitals Temperature??(Oral) 97.7 ??F (36.5 ??C) Heart Rate??(Monitored) 86 Respiratory Rate?? 18 Blood Pressure?? 123/66?? Weight?? 206.61 lb (93.7 kg) Allergies Pollen??(Anaphylaxis) penicillin??(Angioedema) shellfish??(Nausea and vomiting) Keppra??(Leukopenia) aspirin??(Nosebleed) cefTRIAXone??(Leukopenia) simvastatin??(Myalgia) [employer] Atrial Fibrillation Atrial fibrillation is a type of irregular or rapid heartbeat (arrhythmia). In atrial fibrillation,the top part of the heart (atria) beats in an irregular pattern. This makes the heart unable to pump blood normally and effectively. The goal of treatment is to prevent blood clots from forming, control your heart rate, or restore your heartbeat to a normal rhythm. If this condition is not treated, it can cause serious problems, such as a weakened heart muscle (cardiomyopathy) or a stroke. What are the causes? This condition is often caused by medical conditions that damage the heart's electrical system. These include: ? High blood pressure (hypertension). This is the most common cause. ? Certain heart problems or conditions, such as heart failure, coronary artery disease, heart valve problems, or heart surgery. ? Diabetes. ? Overactive thyroid (hyperthyroidism). ? Obesity. ? Chronic kidney disease. In some cases, the cause of this condition is not known. What increases the risk? This condition is more likely to develop in: ? Older people. ? People who smoke. ? Athletes who do endurance exercise. ? People who have a family history of atrial fibrillation. ? Men. ? People who use drugs. ? People who drink a lot of alcohol. ? People who have lung conditions, such as emphysema, pneumonia, or COPD. ? People who have obstructive sleep apnea. What are the signs or symptoms? Symptoms of this condition include: ? A feeling that your heart is racing or beating irregularly. ? Discomfort or pain in your chest. ? Shortness of breath. ? Sudden light-headedness or weakness. ? Tiring easily during exercise or activity. ? Fatigue. ? Syncope (fainting). ? Sweating. In some cases, there are no symptoms. How is this diagnosed? Your health care provider may detect atrial fibrillation when taking your pulse. If detected, this condition may be diagnosed with: ? An electrocardiogram (ECG) to check electrical signals of the heart. ? An ambulatory cardiac catheterization technician to record your heart's activity for a few days. ? A transthoracic echocardiogram (TTE) to create pictures of your heart. ? A transesophageal echocardiogram (ROLAND) to create even closer pictures of your heart. ? A stress test to check your blood supply while you exercise. ? Imaging tests, such as a CT scan or chest X-ray. ? Blood tests. How is this treated? Treatment depends on underlying conditions and how you feel when you experience atrial fibrillation. This condition may be treated with: ? Medicines to prevent blood clots or to treat heart rate or heart rhythm problems. ? Electrical cardioversion to reset the heart's rhythm. ? A pacemaker to correct abnormal heart rhythm. ? Ablation to remove the heart tissue that sends abnormal signals. ? Left atrial appendage closure to seal the area where blood clots can form. In some cases, underlying conditions will be treated. Follow these instructions at home: Medicines ? Take over-the counter and prescription medicines only as told by your health care provider. ? Do not take any new medicines without talking to your health care provider. ? If you are taking blood thinners: ? Talk with your health care provider before you take any medicines that contain aspirin or NSAIDs, such as ibuprofen. These medicines increase your risk for dangerous bleeding. ? Take your medicine exactly as told, at the same time every day. ? Avoid activities that could cause injury or bruising, and follow instructions about how to prevent falls. ? Wear a medical alert bracelet or carry a card that lists what medicines you take. Lifestyle ? Do not use any products that contain nicotine or tobacco, such as cigarettes, e- cigarettes, and chewing tobacco. If you need help quitting, ask your health care provider. ? Eat heart-healthy foods. Talk with a dietitian to make an eating plan that is right for you. ? Exercise regularly as told by your health care provider. ? Do not drink alcohol. ? Lose weight if you are overweight. ? Do not use drugs, including cannabis. General instructions ? If you have obstructive sleep apnea, manage your condition as told by your health care provider. ? Do not use diet pills unless your health care provider approves. Diet pills can make heart problemsworse. ? Keep all follow-up visits as told by your health care provider. This is important. Contact a health care provider if you: ? Notice a change in the rate, rhythm, or strength of your heartbeat. ? Are taking a blood thinner and you notice more bruising. ? Tire more easily when you exercise or do heavy work. ? Have a sudden change in weight. Get help right away if you have: ? Chest pain, abdominal pain, sweating, or weakness. ? Trouble breathing. ? Side effects of blood thinners, such as blood in your vomit, stool, or urine, or bleeding that cannot stop. ? Any symptoms of a stroke. BE FAST is an easy way to remember the main warning signs of a stroke: ? B - Balance. Signs are dizziness, sudden trouble walking, or loss of balance. ? E - Eyes. Signs are trouble seeing or a sudden change in vision. ? F - Face. Signs are sudden weakness or numbness of the face, or the face or eyelid drooping on one side. ? A - Arms. Signs are weakness or numbness in an arm. This happens suddenly and usually on one side of the body. ? S - Speech. Signs are sudden trouble speaking, slurred speech, or trouble understanding what peoplesay. ? T - Time. Time to call emergency services. Write down what time symptoms started. ? Other signs of a stroke, such as: ? A sudden, severe headache with no known cause. ? Nausea or vomiting. ? Seizure. These symptoms may represent a serious problem that is an emergency. Do not wait to see if the symptoms will go away. Get medical help right away. Call your local emergency services (911 in the [place] Do not drive yourself to the hospital. Summary ? Atrial fibrillation is a type of irregular or rapid heartbeat (arrhythmia). ? Symptoms include a feeling that your heart is beating fast or irregularly. ? You may be given medicines to prevent blood clots or to treat heart rate or heart rhythm problems. ? Get help right away if you have signs or symptoms of a stroke. ? Get help right away if you cannot catch your breath or have chest pain or pressure. This information is not intended to replace advice given to you by your health care provider. Make sure you discuss any questions you have with your health care provider. Document Revised: 05/10/2020 Document Reviewed: 05/10/2020 [employer] Patient Education ?? 2021 [employer] Atrial Flutter Atrial flutter is a type of abnormal heart rhythm (arrhythmia). The heart has an electrical system that tells it how to beat. In atrial flutter, the signals move rapidly in the top chambers of the heart (the atria). This makes your heart beat very fast. Atrial flutter can come and go, or it can be permanent. The goal of treatment is to prevent blood clots from forming, control your heart rate, or restore your heartbeat to a normal rhythm. If this condition is not treated, it can cause serious problems, such as a weakened heart muscle (cardiomyopathy) or a stroke. What are the causes? This condition is often caused by conditions that damage the heart's electrical system. These include: ? Heart conditions and heart surgery. These include heart attacks and open-heart surgery. ? Lung problems, such as COPD or a blood clot in the lung (pulmonary embolism, or PE). ? Poorly controlled high blood pressure (hypertension). ? Overactive thyroid (hyperthyroidism). ? Diabetes. In some cases, the cause of this condition is not known. What increases the risk? You are more likely to develop this condition if: ? You are an elderly adult. ? You are a man. ? You are overweight (obese). ? You have obstructive sleep apnea. ? You have a family history of atrial flutter. ? You have diabetes. ? You drink a lot of alcohol, especially binge drinking. ? You use drugs, including cannabis. ? You smoke. What are the signs or symptoms? Symptoms of this condition include: ? A feeling that your heart is pounding or racing (palpitations). ? Shortness of breath. ? Chest pain. ? Feeling dizzy or light-headed. ? Fainting. ? Low blood pressure (hypotension). ? Fatigue. ? Tiring easily during exercise or activity. In some cases, there are no symptoms. How is this diagnosed? This condition may be diagnosed with: ? An electrocardiogram (ECG) to check electrical signals of the heart. ? An ambulatory cardiac catheterization technician to record your heart's activity for a few days. ? An echocardiogram to create pictures of your heart. ? A transesophageal echocardiogram (ROLAND) to create even better pictures of your heart. ? A stress test to check your blood supply while you exercise. ? Imaging tests, such as a CT scan or chest X-ray. ? Blood tests. How is this treated? Treatment depends on underlying conditions and how you feel when you experience atrial flutter. This condition may be treated with: ? Medicines to prevent blood clots or to treat heart rate or heart rhythm problems. ? Electrical cardioversion to reset the heart's rhythm. ? Ablation to remove the heart tissue that sends abnormal signals. ? Left atrial appendage closure to seal the area where blood clots can form. In some cases, underlying conditions will be treated. Follow these instructions at home: Medicines ? Take [id number] and prescription medicines only as told by your health care provider. ? Do not take any new medicines without talking to your health care provider. ? If you are taking blood thinners: ? Talk with your health care provider before you take any medicines that contain aspirin or NSAIDs, such as ibuprofen. These medicines increase your risk for dangerous bleeding. ? Take your medicine exactly as told, at the same time every day. ? Avoid activities that could cause injury or bruising, and follow instructions about how to prevent falls. ? Wear a medical alert bracelet or carry a card that lists what medicines you take. Lifestyle ? Eat heart-healthy foods. Talk with a dietitian to make an eating plan that is right for you. ? Do not use any products that contain nicotine or tobacco, such as cigarettes, e- cigarettes, and chewing tobacco. If you need help quitting, ask your health care provider. ? Do not drink alcohol. ? Do not use drugs, including cannabis. ? Lose weight if you are overweight or obese. ? Exercise regularly as instructed by your health care provider. General instructions ? Do not use diet pills unless your health care provider approves. Diet pills may make heart problemsworse. ? If you have obstructive sleep apnea, manage your condition as told by your health care provider. ? Keep all follow-up visits as told by your health care provider. This is important. Contact a health care provider if you: ? Notice a change in the rate, rhythm, or strength of your heartbeat. ? Are taking a blood thinner and you notice more bruising. ? Have a sudden change in weight. ? Tire more easily when you exercise or do heavy work. Get help right away if you have: ? Pain or pressure in your chest. ? Shortness of breath. ? Fainting. ? Increasing sweating with no known cause. ? Side effects of blood thinners, such as blood in your vomit, stool, or urine, or bleeding that cannot stop. ? Any symptoms of a stroke. BE FAST is an easy way to remember the main warning signs of a stroke: ? B - Balance. Signs are dizziness, sudden trouble walking, or loss of balance. ? E - Eyes. Signs are trouble seeing or a sudden change in vision. ? F - Face. Signs are sudden weakness or numbness of the face, or the face or eyelid drooping on one side. ? A - Arms. Signs are weakness or numbness in an arm. This happens suddenly and usually on one side of the body. ? S - Speech. Signs are sudden trouble speaking, slurred speech, or trouble understanding what peoplesay. ? T - Time. Time to call emergency services. Write down what time symptoms started. ? Other signs of a stroke, such as: ? A sudden, severe headache with no known cause. ? Nausea or vomiting. ? Seizure. ? These symptoms may represent a serious problem that is an emergency. Do not wait to see if the symptoms will go away. Get medical help right away. Call your local emergency services (911 in the [place] Do not drive yourself to the hospital. Summary ? Atrial flutter is an abnormal heart rhythm that can give you symptoms of palpitations, shortness ofbreath, or fatigue. ? Atrial flutter is often treated with medicines to keep your heart in a normal rhythm and to preventa stroke. ? Get help right away if you cannot catch your breath, or have chest pain or pressure. ? Get help right away if you have signs or symptoms of a stroke. This information is not intended to replace advice given to you by your health care provider. Make sure you discuss any questions you have with your health care provider. Document Revised: 05/10/2020 Document Reviewed: 05/10/2020 [employer] Patient Education ?? 2021 [employer] Community-Acquired Pneumonia, Adult Pneumonia is an infection of the lungs. It causes irritation and swelling in the airways of the lungs. Mucus and fluid may also build up inside the airways. This may cause coughing and trouble breathing. One type of pneumonia can happen while you are in a hospital. A different type can happen when you are not in a hospital (community-acquired pneumonia). What are the causes? This condition is caused by germs (viruses, bacteria, or fungi). Some types of germs can spread from person to person. Pneumonia is not thought to spread from person to person. What increases the risk? You are more likely to develop this condition if: ? You have a long-term (chronic) disease, such as: ? Disease of the lungs. This may be chronic obstructive pulmonary disease (COPD) or asthma. ? Heart failure. ? Cystic fibrosis. ? Diabetes. ? Kidney disease. ? Sickle cell disease. ? HIV. ? You have other health problems, such as: ? Your body's defense system (immune system) is weak. ? A condition that may cause you to breathe in fluids from your mouth and nose. ? You had your spleen taken out. ? You do not take good care of your teeth and mouth (poor dental hygiene). ? You use or have used tobacco products. ? You travel where the germs that cause this illness are common. ? You are near certain animals or the places they live. ? You are older than 65 years of age. What are the signs or symptoms? Symptoms of this condition include: ? A cough. ? A fever. ? Sweating or chills. ? Chest pain, often when you breathe deeply or cough. ? Breathing problems, such as: ? Fast breathing. ? Trouble breathing. ? Shortness of breath. ? Feeling tired (fatigued). ? Muscle aches. How is this treated? Treatment for this condition depends on many things, such as: ? The cause of your illness. ? Your medicines. ? Your other health problems. Most adults can be treated at home. Sometimes, treatment must happen in a hospital. ? Treatment may include medicines to kill germs. ? Medicines may depend on which germ caused your illness. Very bad pneumonia is rare. If you get it, you may: ? Have a machine to help you breathe. ? Have fluid taken away from around your lungs. Follow these instructions at home: Medicines ? Take kvmw-yqd-[id number] and prescription medicines only as told by your doctor. ? Take cough medicine only if you are losing sleep. Cough medicine can keep your body from taking mucus away from your lungs. ? If you were prescribed an antibiotic medicine, take it as told by your doctor. Do not stop taking the antibiotic even if you start to feel better. Lifestyle ? Do not drink alcohol. ? Do not use any products that contain nicotine or tobacco, such as cigarettes, e- cigarettes, and chewing tobacco. If you need help quitting, ask your doctor. ? Eat a healthy diet. This includes a lot of vegetables, fruits, whole grains, low-fat dairy products, and low-fat (lean) protein. General instructions ? Rest a lot. Sleep for at least 8 hours each night. ? Sleep with your head and neck raised. Put a few pillows under your head or sleep in a reclining chair. ? Return to your normal activities as told by your doctor. Ask your doctor what activities are safe for you. ? Drink enough fluid to keep your pee (urine) pale yellow. ? If your throat is sore, rinse your mouth often with salt water. To make salt water, dissolve ?1tsp (3???6 g) of salt in 1 cup (237 mL) of warm water. ? Keep all follow-up visits as told by your doctor. This is important. How is this prevented? You can lower your risk of pneumonia by: ? Getting the pneumonia shot (vaccine). These shots have different types and schedules. Ask your doctor what works best for you. Think about getting this shot if: ? You are older than 65 years of age. ? You are 19???65 years of age and: ? You are being treated for cancer. ? You have long-term lung disease. ? You have other problems that affect your body's defense system. Ask your doctor if you have one of these. ? Getting your flu shot every year. Ask your doctor which type of shot is best for you. ? Going to the dentist as often as told. ? Washing your hands often with soap and water for at least 20 seconds. If you cannot use soap and water, use hand tie tape machine operator. Contact a doctor if: ? You have a fever. ? You lose sleep because your cough medicine does not help. Get help right away if: ? You are short of breath and this gets worse. ? You have more chest pain. ? Your sickness gets worse. This is very serious if: ? You are an older adult. ? Your body's defense system is weak. ? You cough up blood. These symptoms may be an emergency. Do not wait to see if the symptoms will go away. Get medical help right away. Call your local emergency services (911 in the [place] Do not drive yourself to the hospital. Summary ? Pneumonia is an infection of the lungs. ? Community-acquired pneumonia affects people who have not been in the hospital. Certain germs can cause this infection. ? This condition may be treated with medicines that kill germs. ? For very bad pneumonia, you may need a hospital stay and treatment to help with breathing. This information is not intended to replace advice given to you by your health care provider. Make sure you discuss any questions you have with your health care provider. Document Revised: 08/29/2020 Document Reviewed: 08/29/2020 [employer] Patient Education ?? 2021 [employer] Medication Information digoxin (oral/injection)?? (dylon KIM in) ?? Digitek, Digox, Lanoxin?What is the most important information I should know about digoxin?You should not use digoxin if you have a heart rhythm disorder called ventricular fibrillation. ?What is digoxin?Digoxin is derived from the leaves of a digitalis plant and is used to treat heart failure. ?Digoxin is also used to treat atrial fibrillation, a heart rhythm disorder of the atrium (the upper chambers of the heart that allow blood to flow into the heart). ?Digoxin may also be used for purposes not listed in this medication guide. ?What should I discuss with my healthcare provider before using digoxin?You should not use digoxin if you are allergic to it, or if you have ventricular fibrillation (a heart rhythm disorder of the ventricles, or lower chambers of the heart that allow blood to flow out of the heart). ?Tell your doctor if you have ever had: ?a serious heart condition such as 'sick sinus syndrome' or 'AV block' (unless you have a pacemaker); ?a heart attack; ?slow heartbeats that have caused you to faint; ?Hpjho-Axmabppag-Dskdh Syndrome (sudden fast heartbeats); ?kidney disease; ?an electrolyte imbalance (such as low levels of calcium, potassium, or magnesium in your blood);?a thyroid disorder; or ?if you have recently been sick with vomiting or diarrhea. ?Tell your doctor if you are . ??It is not known whether digoxin will harm an unborn baby. ??However, having heart failure or atrial fibrillation during may cause complications such as premature or low weight, or risk of in both mother and baby. ??The benefit of treating heart problems with digoxin may outweigh any risks to the baby. ?It may not be safe to breast-feed while using this medicine. Ask your doctor about any risk. ?How should I use digoxin?Follow all directions on your prescription label and read all medication guides or instruction sheets. ??Use the medicine exactly as directed. ?Try to take??oral??digoxin at the same time every day. ?Measure??liquid medicine??carefully. Use the dosing syringe provided, or use a medicine dose-measuring device (not a kitchen spoon). ?Take digoxin regularly even if you feel fine or have no symptoms. ??Get your prescription refilled before you run out of medicine completely. ?Digoxin??injection??is given as a shot into a muscle, or as an infusion into a vein. ??A healthcare provider will give you this injection if you are unable to take the medicine by mouth. ?Your blood pressure and heart rate will need to be checked daily. ?You may need frequent blood tests. ??Your kidney function may also need to be checked. ?You should not stop taking digoxin suddenly.?Stopping suddenly may make your condition worse. ?Store at room temperature away from moisture and heat. ?What happens if I miss a dose?Take the medicine as soon as you can, but skip the missed dose if your next dose is due in lessthan 12 hours. ??Do not??take two doses at one time. ?What happens if I overdose?Seek emergency medical attention or call the Poison Help line at . ??An overdose of digoxin can be fatal. ?Overdose symptoms may include nausea, vomiting, loss of appetite, and feeling tired. ?What should I avoid while using digoxin?Avoid becoming overheated or dehydrated during exercise, in hot weather, or by not drinking enough fluids. ??Digoxin overdose can occur more easily if you are dehydrated. ?What are the possible side effects of digoxin?Get emergency medical help if you have??signs of an allergic reaction:?hives; difficulty breathing; swelling of your face, lips, tongue, or throat. ?Call your doctor at once if you have: ?nausea, vomiting, diarrhea, stomach pain; ?fast, slow, or uneven heart rate; ?a light-headed feeling, like you might pass out; ?bloody or black, tarry stools; ?confusion, weakness, hallucinations, unusual thoughts or behavior; ?breast swelling or tenderness;?blurred vision, yellowed vision; or ?(in babies or children) stomach pain, weight loss, growth delay, behavior changes. ?Serious side effects may be more likely in older adults and those who are ill or debilitated. ?Common side effects may include: ?nausea, diarrhea; ?feeling weak or dizzy; ?headache, weakness, anxiety, depression; or ?rash. ?This is not a complete list of side effects and others may occur. Call your doctor for medical advice about side effects. You may report side effects to FDA at 0-014-VWW-6218. ?What other drugs will affect digoxin?Sometimes it is not safe to use certain medications at the same time.?Some drugs can affect your blood levels of other drugs you take, which may increase side effects or make the medications less effective. ?Many drugs can affect digoxin.?This includes prescription and dqbi-pub-hhazkmy medicines, vitamins, and herbal products. ??Not all possible interactions are listed here.?Tell your doctor about all your current medicines and any medicine you start or stop using. ?Where can I get more information?Your pharmacist can provide more information about digoxin. ?Remember, keep this and all other medicines out of the reach of children, never share your medicines with others, and use this medication only for the indication prescribed. ?Every effort has been made to ensure that the information provided by [employer]. ('[employer]') is accurate, up-to-date, and complete, but no guarantee is made to that effect. Drug information contained herein may be time sensitive. [employer] information has been compiled for use by healthcare practitioners and consumers in the [place] and therefore [employer] does not warrant that uses outside of the [place] are appropriate, unless specifically indicated otherwise. [employer] drug information does not endorse drugs, diagnose patients or recommend therapy. [employer] drug information is an informational resource designed to assist licensed healthcare practitioners in caring for their patients and/or to serve consumers viewing this service as a supplement to, and not a substitutefor, the expertise, skill, knowledge and judgment of healthcare practitioners. The absence of a warning for a given drug or drug combination in no way should be construed to indicate that the drug ordrug combination is safe, effective or appropriate for any given patient. [employer] does not assume any responsibility for any aspect of healthcare administered with the aid of information [employer] provides. The information contained herein is not intended to cover all possible uses, directions, precautions, warnings, drug interactions, allergic reactions, or adverse effects. If you have questions about the drugs you are taking, check with your doctor, nurse or pharmacist.? Copyright 2779-4162 [employer]. Version: 9.01. Revision Date: 09/22/2018. ?? diltiazem (oral/injection)?? (dil AMINATA a zem) ?? Cardizem, Cartia XT, Dilt-XR, Matzim LA, Taztia XT, Tiadylt ER, Tiazac?What is the most important information I should know about diltiazem?You should not use diltiazem if you have very low blood pressure, a serious heart condition such as 'sick sinus syndrome' or 'AV block' (unless you have a pacemaker), or if you have recently had a heart attack and you have a build-up of fluid in your lungs. ?What is diltiazem?Diltiazem is a calcium channel miller that is used to treat hypertension (high blood pressure)or angina (chest pain). ?Diltiazem??injection??is used to treat certain heart rhythm disorders such as atrial fibrillation or atrial flutter, or dangerously rapid heartbeats (tachycardia). ?Diltiazem may also be used for purposes not listed in this medication guide. ?What should I discuss with my healthcare provider before taking diltiazem?You should not use diltiazem if you are allergic to it, or if you have: ?a serious heart condition such as 'sick sinus syndrome' or 'AV block' (unless you have a pacemaker); ?very low blood pressure;?if you have recently had a heart attack and you have a build-up of fluid in your lungs. ?You may not be able to receive diltiazem??injection??if you have certain heart rhythm conditions. ??Your doctor will test you for these conditions. ?Tell your doctor if you have ever had:?congestive heart failure;?low blood pressure; ?liver disease; or ?kidney disease. ?It is not known whether this medicine will harm an unborn baby. Tell your doctor if you are or plan to become . ?You should not breastfeed while using this medicine. ?How should I take diltiazem?Follow all directions on your prescription label and read all medication guides or instruction sheets. ??Your doctor may occasionally change your dose. ??Use the medicine exactly as directed. ?Diltiazem??oral??is taken by mouth.?Diltiazem??injection??is given as an infusion into a vein. ??A healthcare provider will give you this injection. ??Your heart rate will be constantly monitored using an electrocardiograph or ECG (sometimes called an EKG). Your blood pressure and other vital signs will also be watched closely. ?Swallow the??tablet??or??capsule??whole and do not crush, chew, or break it. ?Your blood pressure will need to be checked often and you may need frequent blood tests. ?You may be given other heart or blood pressure medications to use, including nitroglycerin or abeta-miller medicine (such as atenolol, carvedilol, metoprolol, propranolol, or sotalol). ??Use all medications as directed and read all medication guides you receive. ??Do not change your dose or dosing schedule without your doctor's advice.?Keep using your medicine even if you feel well.?High blood pressure often has no symptoms. ??You may need to use blood pressure medicine for the rest of your life. ?If you need surgery, tell your surgeon you currently use blood pressure medication. ?You should not stop taking diltiazem suddenly.?Stopping suddenly may make your condition worse. ?Store at room temperature away from moisture, heat, and light. ?What happens if I miss a dose?Take the medicine as soon as you can, but skip the missed dose if it is almost time for your next dose.??Do not??take two doses at one time.?What happens if I overdose?Seek emergency medical attention or call the [employer] Help line at . ?Overdose symptoms may include slow heartbeats or fainting. ?What should I avoid while taking diltiazem?Avoid drinking alcohol while taking diltiazem. ?Avoid taking an herbal supplement containing Frisbee's wort. ?Avoid driving or hazardous activity until you know how this medicine will affect you. ??Your reactions could be impaired. ?What are the possible side effects of diltiazem?Get emergency medical help if you have??signs of an allergic reaction??(hives, difficult breathing, swelling in your face or throat)??or a severe skin reaction??(fever, sore throat, burning eyes,skin pain, red or purple skin rash with blistering and peeling). ?Call your doctor at once if you have: ?chest pain; ?slow heartbeats; ?pounding heartbeats or fluttering in your chest;?a light-headed feeling, like you might pass out; or ?heart problems--swelling, rapid weight gain, feeling short of breath. ?Common side effects may include: ?swelling; ?dizziness, weakness; ?headache; ?nausea; or ?rash. ?This is not a complete list of side effects and others may occur. Call your doctor for medical advice about side effects. You may report side effects to FDA at 8-651-NFO-9920. ?What other drugs will affect diltiazem?Sometimes it is not safe to use certain medications at the same time.?Some drugs can affect your blood levels of other drugs you take, which may increase side effects or make the medications less effective. ?Many drugs can affect diltiazem.?This includes prescription and yfqb-fty-lcqmvdi medicines, vitamins, and herbal products. ??Not all possible interactions are listed here.?Tell your doctor about all your current medicines and any medicine you start or stop using. ?Where can I get more information?Your pharmacist can provide more information about diltiazem. ?Remember, keep this and all other medicines out of the reach of children, never share your medicines with others, and use this medication only for the indication prescribed. ?Every effort has been made to ensure that the information provided by [employer]. ('[employer]') is accurate, up-to-date, and complete, but no guarantee is made to that effect. Drug information contained herein may be time sensitive. [employer] information has been compiled for use by healthcare practitioners and consumers in the [place] and therefore [employer] does not warrant that uses outside of the [place] are appropriate, unless specifically indicated otherwise. [employer] drug information does not endorse drugs, diagnose patients or recommend therapy. [employer] drug information is an informational resource designed to assist licensed healthcare practitioners in caring for their patients and/or to serve consumers viewing this service as a supplement to, and not a substitutefor, the expertise, skill, knowledge and judgment of healthcare practitioners. The absence of a warning for a given drug or drug combination in no way should be construed to indicate that the drug ordrug combination is safe, effective or appropriate for any given patient. [employer] does not assume any responsibility for any aspect of healthcare administered with the aid of information [employer] provides. The information contained herein is not intended to cover all possible uses, directions, precautions, warnings, drug interactions, allergic reactions, or adverse effects. If you have questions about the drugs you are taking, check with your doctor, nurse or pharmacist.? Copyright 3166-8200 [employer]. Version: . Revision Date: 02/07/2021. ?? metoprolol (oral/injection)?? (me TOE pro lol) ?? Kapspargo Sprinkle, Lopressor, Metoprolol Succinate ER, Metoprolol Tartrate, Toprol-XL?What is the most important information I should know about metoprolol?You should not use this medicine if you have a serious heart problem (heart block, sick sinus syndrome, slow heart rate), severe circulation problems, severe heart failure, or a history of slow heart beats that caused fainting. ?What is metoprolol?Metoprolol is a beta-miller that affects the heart and circulation (blood flow through arteries and veins). ?Metoprolol is used to treat angina (chest pain) and hypertension (high blood pressure). ??It isalso used to ??lower your risk of or needing to be hospitalized for heart failure. ?Metoprolol??injection??is used during the early phase of a heart attack to lower the risk of . ?Metoprolol may also be used for other purposes not listed in this medication guide. ?What should I discuss with my healthcare provider before taking metoprolol?You should not use this medicine if you are allergic to metoprolol, or other beta-blockers (atenolol, carvedilol, labetalol, nadolol, nebivolol, propranolol, sotalol, and others), or if you have: ?a serious heart problem such as heart block, sick sinus syndrome, or slow heart rate; ?severe circulation problems; ?severe heart failure (that required you to be in the hospital); or ?a history of slow heart beats that have caused you to faint. ?Tell your doctor if you have ever had: ?asthma, chronic obstructive pulmonary disease (COPD), sleep apnea, or other breathing disorder; ?diabetes (taking metoprolol may make it harder for you to tell when you have low blood sugar); ?liver disease; ?congestive heart failure; ?problems with circulation (such as Raynaud's syndrome); ?a thyroid disorder; or ?pheochromocytoma (tumor of the adrenal gland). ?Do not give this medicine to a child without medical advice. ?Tell your doctor if you are or plan to become . ??It is not known whether metoprolol will harm an unborn baby. ??However, having high blood pressure during may cause complications such as diabetes or eclampsia (dangerously high blood pressure that can lead to medical problems in both mother and baby). ??The benefit of treating hypertension may outweigh any risks to the baby.?Ask a doctor before using this medicine if you are breast- feeding.?Metoprolol can pass into breast milk and may cause dry skin, dry mouth, diarrhea, constipation, or slow heartbeats in your baby. ?How should I take metoprolol?Follow all directions on your prescription label and read all medication guides or instruction sheets. ??Your doctor may occasionally change your dose. ??Use the medicine exactly as directed. ?Metoprolol should be taken with a meal or just after a meal. ?Take the medicine at the same time each day. ?Swallow the??capsule??whole and do not crush, chew, break, or open it. ?A??Toprol XL??tablet can be divided in half if your doctor has told you to do so. ??Swallow thehalf-tablet whole, without chewing or crushing. ?Measure??liquid medicine??carefully. Use the dosing syringe provided, or use a medicine dose-measuring device (not a kitchen spoon). ?You will need frequent medical tests, and your blood pressure will need to be checked often. ?If you need surgery, tell the surgeon ahead of time that you are using metoprolol. ?You should not stop using metoprolol suddenly.?Stopping suddenly may make your condition worse. ?If you have high blood pressure,??keep using this medicine even if you feel well.?High bloodpressure often has no symptoms. ??You may need to use metoprolol for the rest of your life. ?Store at room temperature away from moisture and heat. ?Metoprolol??injection??is given as an infusion into a vein. ??A healthcare provider will give you this injection in a medical setting where your heart and blood pressure can be monitored. ??Metoprolol injections are given for only a short time before switching you to the??oral??form of this medicine. ?What happens if I miss a dose?Skip the missed dose and use your next dose at the regular time. ??Do not??use two doses at onetime. ?What happens if I overdose?Seek emergency medical attention or call the Po[employer] Help line at . ?What should I avoid while taking metoprolol?Avoid driving or hazardous activity until you know how this medicine will affect you. ??Your reactions could be impaired. ?Drinking alcohol can increase certain side effects of metoprolol. ?What are the possible side effects of metoprolol?Get emergency medical help if you have??signs of an allergic reaction:?hives; difficulty breathing; swelling of your face, lips, tongue, or throat. ?Call your doctor at once if you have: ?very slow heartbeats; ?a light-headed feeling, like you might pass out; ?shortness of breath (even with mild exertion), swelling, rapid weight gain; or ?cold feeling in your hands and feet. ?Common side effects may include: ?dizziness, tired feeling; ?depression, confusion, memory problems; ?nightmares, trouble sleeping; ?diarrhea; or ?mild itching or rash. ?This is not a complete list of side effects and others may occur. Call your doctor for medical advice about side effects. You may report side effects to FDA at 5-187-LOO-0634. ?What other drugs will affect metoprolol?Tell your doctor about all your current medicines.?Many drugs can affect metoprolol, especially: ?any other heart or blood pressure medications; ?epinephrine (Epi-Pen); ?an antidepressant; ?an ergot medicine--dihydroergotamine, ergonovine, ergotamine, methylergonovine; or ?an MAO inhibitor--isocarboxazid, linezolid, phenelzine, rasagiline, selegiline, tranylcypromine. ?This list is not complete and many other drugs may affect metoprolol.??This includes prescription and cyms-yfc-vwsggbx medicines, vitamins, and herbal products. Not all possible drug interactionsare listed here. ?Where can I get more information?Your pharmacist can provide more information about metoprolol. ?Remember, keep this and all other medicines out of the reach of children, never share your medicines with others, and use this medication only for the indication prescribed. ?Every effort has been made to ensure that the information provided by [employer]. ('[employer]') is accurate, up-to-date, and complete, but no guarantee is made to that effect. Drug information contained herein may be time sensitive. [employer] information has been compiled for use by healthcare practitioners and consumers in the [place] and therefore [employer] does not warrant that uses outside of the [place] are appropriate, unless specifically indicated otherwise. [employer] drug information does not endorse drugs, diagnose patients or recommend therapy. [employer] drug information is an informational resource designed to assist licensed healthcare practitioners in caring for their patients and/or to serve consumers viewing this service as a supplement to, and not a substitutefor, the expertise, skill, knowledge and judgment of healthcare practitioners. The absence of a warning for a given drug or drug combination in no way should be construed to indicate that the drug ordrug combination is safe, effective or appropriate for any given patient. [employer] does not assume any responsibility for any aspect of healthcare administered with the aid of information [employer] provides. The information contained herein is not intended to cover all possible uses, directions, precautions, warnings, drug interactions, allergic reactions, or adverse effects. If you have questions about the drugs you are taking, check with your doctor, nurse or pharmacist.? Copyright 3777-9152 [employer]. Version: 17.03. Revision Date: 04/28/2019. ? Patient Name:MIRNA MILTON I have received this information and my questions have been answered. Patient/Switchboard Troubleshooter Name: Patient/Switchboard Troubleshooter Signature: Relationship to Patient: Witness Name/Signature: Date: Electronically Signed on: 01/18/2023 10:33 EST Signed by:QUITA reservoir engineering manager Note * Bart Minor: PERFORM Event Display: Case Management Note Authored Date: [id number] Report written from chart review, MD report, & patient interview. 77 y/o M from [place], [place] with hx of paroxysmal Afib on rivaroxaban (s/p ablation 2017 and cardioversion 2019), CAD (s/p PCI 2005 at [facility], stents to LAD x 2/LCx x 2/ramus), HTN, HLD, AAA (since 2017) who presented to [facility] today due to lightheadedness and shortness of breath. He was recently diagnosed with left sided pneumonia over a week ago also at [facility] emergency department. Patient alert & oriented. Lying in bed during interview. Pleasant 77 y/o man who reports he ambulates independently at home. Reports he still drives. AD found in [facility] file. Copy placed in [facility] chart. Patient lives with his in multi level home with 3 steps to enter. Patient states they stay on one floor. (Extra bedrooms & bath are upstairs.) Patient uses [facility] in [facility] for prescriptions. Son, Amadeo, added to emergency contacts. Plan for patient to discharge home when breathing & heart rate are under control. CM will maintain contact with patient & provider to coordinate services as needed at discharge. Nurse Progress note * BART GERMAIN RN: PERFORM Event Display: Progress Note-Nurse Authored Date: [id number] Pt in bed, hob elevated. He denies pain. Telemetry in progress, Hr in 70's. will monitor [Electronically Signed on: 01/18/2023 08:17 EST] BART GERMAIN RN RN [Verified on: 01/18/2023 08:17 EST] BART GERMAIN RN RN * BART GERMAIN RN: PERFORM Event Display: Progress Note-Nurse Authored Date: [id number] right Iv removed, initially did not bleed. Pt was cleaning up in BR and site started bleeding. Pressure bandage applied after bleeding stopped. Pt instrudted to remove after 2 hours. [Electronically Signed on: 01/18/2023 15:35 EST] BART GERMAIN RN RN * Lani Sotelo: PERFORM Event Display: Progress Note-Nurse Authored Date: [id number] Patient is very pleasant and cooperative, A&Ox4, independent in room. Still in A-fib / A-flutter, rate controlled in 60's-90's. 0000 PO dilt held as order parameters were not met, 0600 dose given. Other assessment findings unremarkable for acute findings. VSS. Will continue to monitor [Electronically Signed on: 01/18/2023 05:42 EST] Lani Sotelo [Verified on: 01/18/2023 05:42 EST] Lani Sotelo * BART GERMAIN RN: PERFORM Event Display: Progress Note-Nurse Authored Date: [id number] Pt in bed, denies pain. v/s stable, Hr remains irregular. Telemetry in progress [Electronically Signed on: 01/17/2023 07:27 EST] BART GERMAIN RN RN [Verified on: 01/17/2023 07:27 EST] BART GERMAIN RN RN * BART GERMAIN RN: PERFORM Event Display: Progress Note-Nurse Authored Date: [id number] HR 63-68, below Dilt parameters. Scheduled Diltiazem held, Dr Diaz notified. [Electronically Signed on: 01/17/2023 11:48 EST] BART GERMAIN RN RN EKG study * Chayito Oropeza: PERFORM Event Display: Telemetry Strips Authored Date: [id number] * Chayito Oropeza: PERFORM Event Display: Telemetry Strips Authored Date: [id number] * Chayito Oropeza: PERFORM Event Display: Telemetry Strips Authored Date: [id number] Pulmonary procedure note * Marlin Su V: PERFORM Event Display: Pulmonary Procedure Authored Date: [id number] Hospital Summary note * Zachery Hernandez: SIGN Zachery Hernandez: SIGN, SIGN, VERIFY, SIGN Event Display: Inpatient Patient Summary Authored Date: [id number], [place] [address] Patient Information Name: MIRNA MILTON Age: 77 Years Date of : 1945 Arrival Date/Time: 01/14/2023 19:58:08 Discharge Date/Time: Reason For Visit: PNEUMONIA, A-FIB W/ RVR Allergies: cefTRIAXone; Keppra; Pollen; shellfish; simvastatin; aspirin; penicillin Diagnosis: 1:Atrial flutter with rapid ventricular response; 2:Community acquired pneumonia of left lung; 3:Acute congestive heart failure; 4:Atrial fibrillation; 5:HTN (hypertension) Comment: Provider Information: Admitting Physician: Alan Diaz MD Attending Physician:Alan Diaz MD Primary Care Provider:Mirna Barrera [facility] would like to thank you for allowing us to assist you with your healthcare needs. The following includes patient education materials and information regarding your injury/illness. Our entire staff strives to provide a very good experience for our patients andtheir families. You may receive, by mail, a survey about your experience with us. PLEASE ENSURE YOUFOLLOW-UP PER THE INSTRUCTIONS BELOW! Medication Information: It is important to always keep an active list of medications available so that you can share with other providers and manage your medications appropriately. As an additional courtesy, we are also providing you with your final active medications list that you can keep with you. atorvastatin (atorvastatin 10 mg oral tablet) 1 tab(s) Oral every day. digoxin (digoxin 125 mcg (0.125 mg) oral tablet) 2 tab(s) Oral every day. Refills: 1. dilTIAZem (dilTIAZem 30 mg oral tablet) 3 tab(s) Oral three times a day (with meals). Refills: 0. lisinopril (lisinopril 5 mg oral tablet) 1 tab(s) Oral every day. Refills: 0. metoprolol (metoprolol succinate 200 mg oral tablet, extended release) 1 tab(s) Oral every day. Refills: 1. rivaroxaban (rivaroxaban 20 mg oral tablet) 1 tab(s) Oral once a day (in the evening). timolol ophthalmic (timolol maleate 0.5% ophthalmic solution) 1 Drops Ophthalmic 2 times a day. Take only the medications listed above. Contact your doctor prior to taking any medications not on this list. MIRNA MILTON has been given the following list of follow-up instructions, patient education materials, and medication leaflets: Follow-up Instructions: With: Address: When: Mirna Barrera [address] [place] [address] 01/24/2023 11:15 AM Comments: Please follow up your hospital stay with your Primary Care Provider. Arrive 15??minutes early to this appointment. With: Address: When: [address] Torres [address] [place] [address] [phone] 02/05/2023 10:40 AM Comments: Please arrive at [address] for cardiology appointment by 10:20 a.m. Patient Education Materials: Atrial Fibrillation; Atrial Flutter; Community-Acquired Pneumonia, Adult, Muqt-[id number] Patient Activity Level: As Tolerated Patient Activity Restrictions: Do not use alcohol, Do not smoke or use tobacco products Patient Diet: Prudent AHA Diet Comment: Atrial Fibrillation Atrial fibrillation is a type of irregular or rapid heartbeat (arrhythmia). In atrial fibrillation,the top part of the heart (atria) beats in an irregular pattern. This makes the heart unable to pump blood normally and effectively. The goal of treatment is to prevent blood clots from forming, control your heart rate, or restore your heartbeat to a normal rhythm. If this condition is not treated, it can cause serious problems, such as a weakened heart muscle (cardiomyopathy) or a stroke. What are the causes? This condition is often caused by medical conditions that damage the heart's electrical system. These include: ??? High blood pressure (hypertension). This is the most common cause. ??? Certain heart problems or conditions, such as heart failure, coronary artery disease, heart valve problems, or heart surgery. ??? Diabetes. ??? Overactive thyroid (hyperthyroidism). ??? Obesity. ??? Chronic kidney disease. In some cases, the cause of this condition is not known. What increases the risk? This condition is more likely to develop in: ??? Older people. ??? People who smoke. ??? Athletes who do endurance exercise. ??? People who have a family history of atrial fibrillation. ??? Men. ??? People who use drugs. ??? People who drink a lot of alcohol. ??? People who have lung conditions, such as emphysema, pneumonia, or COPD. ??? People who have obstructive sleep apnea. What are the signs or symptoms? Symptoms of this condition include: ??? A feeling that your heart is racing or beating irregularly. ??? Discomfort or pain in your chest. ??? Shortness of breath. ??? Sudden light-headedness or weakness. ??? Tiring easily during exercise or activity. ??? Fatigue. ??? Syncope (fainting). ??? Sweating. In some cases, there are no symptoms. How is this diagnosed? Your health care provider may detect atrial fibrillation when taking your pulse. If detected, this condition may be diagnosed with: ??? An electrocardiogram (ECG) to check electrical signals of the heart. ??? An ambulatory cardiac catheterization technician to record your heart's activity for a few days. ??? A transthoracic echocardiogram (TTE) to create pictures of your heart. ??? A transesophageal echocardiogram (ROLAND) to create even closer pictures of your heart. ??? A stress test to check your blood supply while you exercise. ??? Imaging tests, such as a CT scan or chest X-ray. ??? Blood tests. How is this treated? Treatment depends on underlying conditions and how you feel when you experience atrial fibrillation. This condition may be treated with: ??? Medicines to prevent blood clots or to treat heart rate or heart rhythm problems. ??? Electrical cardioversion to reset the heart's rhythm. ??? A pacemaker to correct abnormal heart rhythm. ??? Ablation to remove the heart tissue that sends abnormal signals. ??? Left atrial appendage closure to seal the area where blood clots can form. In some cases, underlying conditions will be treated. Follow these instructions at home: Medicines ??? Take over-the counter and prescription medicines only as told by your health care provider. ??? Do not take any new medicines without talking to your health care provider. ??? If you are taking blood thinners: ??? Talk with your health care provider before you take any medicines that contain aspirin or NSAIDs, such as ibuprofen. These medicines increase your risk for dangerous bleeding. ??? Take your medicine exactly as told, at the same time every day. ??? Avoid activities that could cause injury or bruising, and follow instructions about how to prevent falls. ??? Wear a medical alert bracelet or carry a card that lists what medicines you take. Lifestyle ??? Do not use any products that contain nicotine or tobacco, such as cigarettes, e-cigarettes, andchewing tobacco. If you need help quitting, ask your health care provider. ??? Eat heart-healthy foods. Talk with a dietitian to make an eating plan that is right for you. ??? Exercise regularly as told by your health care provider. ??? Do not drink alcohol. ??? Lose weight if you are overweight. ??? Do not use drugs, including cannabis. General instructions ??? If you have obstructive sleep apnea, manage your condition as told by your health care provider. ??? Do not use diet pills unless your health care provider approves. Diet pills can make heart problems worse. ??? Keep all follow-up visits as told by your health care provider. This is important. Contact a health care provider if you: ??? Notice a change in the rate, rhythm, or strength of your heartbeat. ??? Are taking a blood thinner and you notice more bruising. ??? Tire more easily when you exercise or do heavy work. ??? Have a sudden change in weight. Get help right away if you have: ??? Chest pain, abdominal pain, sweating, or weakness. ??? Trouble breathing. ??? Side effects of blood thinners, such as blood in your vomit, stool, or urine, or bleeding that cannot stop. ??? Any symptoms of a stroke. BE FAST is an easy way to remember the main warning signs of a stroke: ??? B - Balance. Signs are dizziness, sudden trouble walking, or loss of balance. ??? E - Eyes. Signs are trouble seeing or a sudden change in vision. ??? F - Face. Signs are sudden weakness or numbness of the face, or the face or eyelid drooping on one side. ??? A - Arms. Signs are weakness or numbness in an arm. This happens suddenly and usually on one side of the body. ??? S - Speech. Signs are sudden trouble speaking, slurred speech, or trouble understanding what people say. ??? T - Time. Time to call emergency services. Write down what time symptoms started. ??? Other signs of a stroke, such as: ??? A sudden, severe headache with no known cause. ??? Nausea or vomiting. ??? Seizure. These symptoms may represent a serious problem that is an emergency. Do not wait to see if the symptoms will go away. Get medical help right away. Call your local emergency services (911 in the [place] Do not drive yourself to the hospital. Summary ??? Atrial fibrillation is a type of irregular or rapid heartbeat (arrhythmia). ??? Symptoms include a feeling that your heart is beating fast or irregularly. ??? You may be given medicines to prevent blood clots or to treat heart rate or heart rhythm problems. ??? Get help right away if you have signs or symptoms of a stroke. ??? Get help right away if you cannot catch your breath or have chest pain or pressure. This information is not intended to replace advice given to you by your health care provider. Make sure you discuss any questions you have with your health care provider. Document Revised: 05/10/2020 Document Reviewed: 05/10/2020 [employer] Patient Education ?? 2021 [employer]. Atrial Flutter Atrial flutter is a type of abnormal heart rhythm (arrhythmia). The heart has an electrical system that tells it how to beat. In atrial flutter, the signals move rapidly in the top chambers of the heart (the atria). This makes your heart beat very fast. Atrial flutter can come and go, or it can be permanent. The goal of treatment is to prevent blood clots from forming, control your heart rate, or restore your heartbeat to a normal rhythm. If this condition is not treated, it can cause serious problems, such as a weakened heart muscle (cardiomyopathy) or a stroke. What are the causes? This condition is often caused by conditions that damage the heart's electrical system. These include: ??? Heart conditions and heart surgery. These include heart attacks and open- heart surgery. ??? Lung problems, such as COPD or a blood clot in the lung (pulmonary embolism, or PE). ??? Poorly controlled high blood pressure (hypertension). ??? Overactive thyroid (hyperthyroidism). ??? Diabetes. In some cases, the cause of this condition is not known. What increases the risk? You are more likely to develop this condition if: ??? You are an elderly adult. ??? You are a man. ??? You are overweight (obese). ??? You have obstructive sleep apnea. ??? You have a family history of atrial flutter. ??? You have diabetes. ??? You drink a lot of alcohol, especially binge drinking. ??? You use drugs, including cannabis. ??? You smoke. What are the signs or symptoms? Symptoms of this condition include: ??? A feeling that your heart is pounding or racing (palpitations). ??? Shortness of breath. ??? Chest pain. ??? Feeling dizzy or light-headed. ??? Fainting. ??? Low blood pressure (hypotension). ??? Fatigue. ??? Tiring easily during exercise or activity. In some cases, there are no symptoms. How is this diagnosed? This condition may be diagnosed with: ??? An electrocardiogram (ECG) to check electrical signals of the heart. ??? An ambulatory cardiac catheterization technician to record your heart's activity for a few days. ??? An echocardiogram to create pictures of your heart. ??? A transesophageal echocardiogram (ROLAND) to create even better pictures of your heart. ??? A stress test to check your blood supply while you exercise. ??? Imaging tests, such as a CT scan or chest X-ray. ??? Blood tests. How is this treated? Treatment depends on underlying conditions and how you feel when you experience atrial flutter. This condition may be treated with: ??? Medicines to prevent blood clots or to treat heart rate or heart rhythm problems. ??? Electrical cardioversion to reset the heart's rhythm. ??? Ablation to remove the heart tissue that sends abnormal signals. ??? Left atrial appendage closure to seal the area where blood clots can form. In some cases, underlying conditions will be treated. Follow these instructions at home: Medicines ??? Take hfnh-bkg-dfrgpqv and prescription medicines only as told by your health care provider. ??? Do not take any new medicines without talking to your health care provider. ??? If you are taking blood thinners: ??? Talk with your health care provider before you take any medicines that contain aspirin or NSAIDs, such as ibuprofen. These medicines increase your risk for dangerous bleeding. ??? Take your medicine exactly as told, at the same time every day. ??? Avoid activities that could cause injury or bruising, and follow instructions about how to prevent falls. ??? Wear a medical alert bracelet or carry a card that lists what medicines you take. Lifestyle ??? Eat heart-healthy foods. Talk with a dietitian to make an eating plan that is right for you. ??? Do not use any products that contain nicotine or tobacco, such as cigarettes, e-cigarettes, andchewing tobacco. If you need help quitting, ask your health care provider. ??? Do not drink alcohol. ??? Do not use drugs, including cannabis. ??? Lose weight if you are overweight or obese. ??? Exercise regularly as instructed by your health care provider. General instructions ??? Do not use diet pills unless your health care provider approves. Diet pills may make heart problems worse. ??? If you have obstructive sleep apnea, manage your condition as told by your health care provider. ??? Keep all follow-up visits as told by your health care provider. This is important. Contact a health care provider if you: ??? Notice a change in the rate, rhythm, or strength of your heartbeat. ??? Are taking a blood thinner and you notice more bruising. ??? Have a sudden change in weight. ??? Tire more easily when you exercise or do heavy work. Get help right away if you have: ??? Pain or pressure in your chest. ??? Shortness of breath. ??? Fainting. ??? Increasing sweating with no known cause. ??? Side effects of blood thinners, such as blood in your vomit, stool, or urine, or bleeding that cannot stop. ??? Any symptoms of a stroke. BE FAST is an easy way to remember the main warning signs of a stroke: ??? B - Balance. Signs are dizziness, sudden trouble walking, or loss of balance. ??? E - Eyes. Signs are trouble seeing or a sudden change in vision. ??? F - Face. Signs are sudden weakness or numbness of the face, or the face or eyelid drooping on one side. ??? A - Arms. Signs are weakness or numbness in an arm. This happens suddenly and usually on one side of the body. ??? S - Speech. Signs are sudden trouble speaking, slurred speech, or trouble understanding what people say. ??? T - Time. Time to call emergency services. Write down what time symptoms started. ??? Other signs of a stroke, such as: ??? A sudden, severe headache with no known cause. ??? Nausea or vomiting. ??? Seizure. ??? These symptoms may represent a serious problem that is an emergency. Do not wait to see if the symptoms will go away. Get medical help right away. Call your local emergency services (911 in the [place] Do not drive yourself to the hospital. Summary ??? Atrial flutter is an abnormal heart rhythm that can give you symptoms of palpitations, shortness of breath, or fatigue. ??? Atrial flutter is often treated with medicines to keep your heart in a normal rhythm and to prevent a stroke. ??? Get help right away if you cannot catch your breath, or have chest pain or pressure. ??? Get help right away if you have signs or symptoms of a stroke. This information is not intended to replace advice given to you by your health care provider. Make sure you discuss any questions you have with your health care provider. Document Revised: 05/10/2020 Document Reviewed: 05/10/2020 [employer] Patient Education ?? 2021 [employer]. Community-Acquired Pneumonia, Adult Pneumonia is an infection of the lungs. It causes irritation and swelling in the airways of the lungs. Mucus and fluid may also build up inside the airways. This may cause coughing and trouble breathing. One type of pneumonia can happen while you are in a hospital. A different type can happen when you are not in a hospital (community-acquired pneumonia). What are the causes? This condition is caused by germs (viruses, bacteria, or fungi). Some types of germs can spread from person to person. Pneumonia is not thought to spread from person to person. What increases the risk? You are more likely to develop this condition if: ??? You have a long-term (chronic) disease, such as: ??? Disease of the lungs. This may be chronic obstructive pulmonary disease (COPD) or asthma. ??? Heart failure. ??? Cystic fibrosis. ??? Diabetes. ??? Kidney disease. ??? Sickle cell disease. ??? HIV. ??? You have other health problems, such as: ??? Your body's defense system (immune system) is weak. ??? A condition that may cause you to breathe in fluids from your mouth and nose. ??? You had your spleen taken out. ??? You do not take good care of your teeth and mouth (poor dental hygiene). ??? You use or have used tobacco products. ??? You travel where the germs that cause this illness are common. ??? You are near certain animals or the places they live. ??? You are older than 65 years of age. What are the signs or symptoms? Symptoms of this condition include: ??? A cough. ??? A fever. ??? Sweating or chills. ??? Chest pain, often when you breathe deeply or cough. ??? Breathing problems, such as: ??? Fast breathing. ??? Trouble breathing. ??? Shortness of breath. ??? Feeling tired (fatigued). ??? Muscle aches. How is this treated? Treatment for this condition depends on many things, such as: ??? The cause of your illness. ??? Your medicines. ??? Your other health problems. Most adults can be treated at home. Sometimes, treatment must happen in a hospital. ??? Treatment may include medicines to kill germs. ??? Medicines may depend on which germ caused your illness. Very bad pneumonia is rare. If you get it, you may: ??? Have a machine to help you breathe. ??? Have fluid taken away from around your lungs. Follow these instructions at home: Medicines ??? Take ehju-dld-trnhoie and prescription medicines only as told by your doctor. ??? Take cough medicine only if you are losing sleep. Cough medicine can keep your body from takingmucus away from your lungs. ??? If you were prescribed an antibiotic medicine, take it as told by your doctor. Do not stop taking the antibiotic even if you start to feel better. Lifestyle ??? Do not drink alcohol. ??? Do not use any products that contain nicotine or tobacco, such as cigarettes, e-cigarettes, andchewing tobacco. If you need help quitting, ask your doctor. ??? Eat a healthy diet. This includes a lot of vegetables, fruits, whole grains, low-fat dairy products, and low-fat (lean) protein. General instructions ??? Rest a lot. Sleep for at least 8 hours each night. ??? Sleep with your head and neck raised. Put a few pillows under your head or sleep in a recliningchair. ??? Return to your normal activities as told by your doctor. Ask your doctor what activities are safe for you. ??? Drink enough fluid to keep your pee (urine) pale yellow. ??? If your throat is sore, rinse your mouth often with salt water. To make salt water, dissolve ?1 tsp (3???6 g) of salt in 1 cup (237 mL) of warm water. ??? Keep all follow-up visits as told by your doctor. This is important. How is this prevented? You can lower your risk of pneumonia by: ??? Getting the pneumonia shot (vaccine). These shots have different types and schedules. Ask your doctor what works best for you. Think about getting this shot if: ??? You are older than 65 years of age. ??? You are 19???65 years of age and: ??? You are being treated for cancer. ??? You have long-term lung disease. ??? You have other problems that affect your body's defense system. Ask your doctor if you have oneof these. ??? Getting your flu shot every year. Ask your doctor which type of shot is best for you. ??? Going to the dentist as often as told. ??? Washing your hands often with soap and water for at least 20 seconds. If you cannot use soap and water, use hand tie tape machine operator. Contact a doctor if: ??? You have a fever. ??? You lose sleep because your cough medicine does not help. Get help right away if: ??? You are short of breath and this gets worse. ??? You have more chest pain. ??? Your sickness gets worse. This is very serious if: ??? You are an older adult. ??? Your body's defense system is weak. ??? You cough up blood. These symptoms may be an emergency. Do not wait to see if the symptoms will go away. Get medical help right away. Call your local emergency services (911 in the [place] Do not drive yourself to the hospital. Summary ??? Pneumonia is an infection of the lungs. ??? Community-acquired pneumonia affects people who have not been in the hospital. Certain germs can cause this infection. ??? This condition may be treated with medicines that kill germs. ??? For very bad pneumonia, you may need a hospital stay and treatment to help with breathing. This information is not intended to replace advice given to you by your health care provider. Make sure you discuss any questions you have with your health care provider. Document Revised: 08/29/2020 Document Reviewed: 08/29/2020 [employer] Patient Education ?? 2021 [employer]. Medication Information Materials: digoxin (oral/injection) (di JOX in) Digitek, Digox, Lanoxin What is the most important information I should know about digoxin? You should not use digoxin if you have a heart rhythm disorder called ventricular fibrillation. What is digoxin? Digoxin is derived from the leaves of a digitalis plant and is used to treat heart failure. Digoxin is also used to treat atrial fibrillation, a heart rhythm disorder of the atrium (the upperchambers of the heart that allow blood to flow into the heart). Digoxin may also be used for purposes not listed in this medication guide. What should I discuss with my healthcare provider before using digoxin? You should not use digoxin if you are allergic to it, or if you have ventricular fibrillation (a heart rhythm disorder of the ventricles, or lower chambers of the heart that allow blood to flow out of the heart). Tell your doctor if you have ever had: ? a serious heart condition such as 'sick sinus syndrome' or 'AV block' (unless you have a pacemaker); ??? a heart attack; ??? slow heartbeats that have caused you to faint; ??? Advrj-Jqjjskyru-Whasy Syndrome (sudden fast heartbeats); ??? kidney disease; ??? an electrolyte imbalance (such as low levels of calcium, potassium, or magnesium in your blood); ??? a thyroid disorder; or ??? if you have recently been sick with vomiting or diarrhea. Tell your doctor if you are . It is not known whether digoxin will harm an unborn baby. However, having heart failure or atrial fibrillation during may cause complications such as premature or low weight, or risk of in both mother and baby. The benefit of treating heart problems with digoxin may outweigh any risks to the baby. It may not be safe to breast-feed while using this medicine. Ask your doctor about any risk. How should I use digoxin? Follow all directions on your prescription label and read all medication guides or instruction sheets. Use the medicine exactly as directed. Try to take oral digoxin at the same time every day. Measure liquid medicine carefully. Use the dosing syringe provided, or use a medicine dose-measuring device (not a kitchen spoon). Take digoxin regularly even if you feel fine or have no symptoms. Get your prescription refilled before you run out of medicine completely. Digoxin injection is given as a shot into a muscle, or as an infusion into a vein. A healthcare provider will give you this injection if you are unable to take the medicine by mouth. Your blood pressure and heart rate will need to be checked daily. You may need frequent blood tests. Your kidney function may also need to be checked. You should not stop taking digoxin suddenly. Stopping suddenly may make your condition worse. Store at room temperature away from moisture and heat. What happens if I miss a dose? Take the medicine as soon as you can, but skip the missed dose if your next dose is due in less than 12 hours. Do not take two doses at one time. What happens if I overdose? Seek emergency medical attention or call the Poison Help line at . An overdose of digoxin can be fatal. Overdose symptoms may include nausea, vomiting, loss of appetite, and feeling tired. What should I avoid while using digoxin? Avoid becoming overheated or dehydrated during exercise, in hot weather, or by not drinking enough fluids. Digoxin overdose can occur more easily if you are dehydrated. What are the possible side effects of digoxin? Get emergency medical help if you have signs of an allergic reaction: hives; difficulty breathing; swelling of your face, lips, tongue, or throat. Call your doctor at once if you have: ? nausea, vomiting, diarrhea, stomach pain; ??? fast, slow, or uneven heart rate; ??? a light-headed feeling, like you might pass out; ??? bloody or black, tarry stools; ??? confusion, weakness, hallucinations, unusual thoughts or behavior; ??? breast swelling or tenderness; ??? blurred vision, yellowed vision; or ??? (in babies or children) stomach pain, weight loss, growth delay, behavior changes. Serious side effects may be more likely in older adults and those who are ill or debilitated. Common side effects may include: ? nausea, diarrhea; ??? feeling weak or dizzy; ??? headache, weakness, anxiety, depression; or ??? rash. This is not a complete list of side effects and others may occur. Call your doctor for medical advice about side effects. You may report side effects to FDA at 9-144-TES-8827. What other drugs will affect digoxin? Sometimes it is not safe to use certain medications at the same time. Some drugs can affect your blood levels of other drugs you take, which may increase side effects or make the medications less effective. Many drugs can affect digoxin. This includes prescription and ywnd-bgo-milfnjm medicines, vitamins,and herbal products. Not all possible interactions are listed here. Tell your doctor about all yourcurrent medicines and any medicine you start or stop using. Where can I get more information? Your pharmacist can provide more information about digoxin. Remember, keep this and all other medicines out of the reach of children, never share your medicines with others, and use this medication only for the indication prescribed. Every effort has been made to ensure that the information provided by [employer]. ('[employer]') is accurate, up-to-date, and complete, but no guarantee is made to that effect. Drug information contained herein may be time sensitive. [employer] information has been compiled for use by healthcare practitioners and consumers in the [place] and therefore [employer] does not warrant that uses outside of the [place] are appropriate, unless specifically indicated otherwise. [employer]'s drug information does not endorse drugs, diagnose patients or recommend therapy. [facility] drug information isan informational resource designed to assist licensed healthcare practitioners in caring for their p atients and/or to serve consumers viewing this service as a supplement to, and not a substitute for, the expertise, skill, knowledge and judgment of healthcare practitioners. The absence of a warningfor a given drug or drug combination in no way should be construed to indicate that the drug or drug combination is safe, effective or appropriate for any given patient. [facility] does not assume any responsibility for any aspect of healthcare administered with the aid of information [facility] provides. The information contained herein is not intended to cover all possible uses, directions, precautions, warnings, drug interactions, allergic reactions, or adverse effects. If you have questions about the drugs you are taking, check with your doctor, nurse or pharmacist. Copyright 5975-2639 [facility]. Version: 9.. Revision Date: 09/22/2018. diltiazem (oral/injection) (pantera AMINATA a zemaria dolores) Cardizem, Cartia XT, Dilt-XR, Matzim LA, Taztia XT, Tiadylt ER, Tiazac What is the most important information I should know about diltiazem? You should not use diltiazem if you have very low blood pressure, a serious heart condition such as'sick sinus syndrome' or 'AV block' (unless you have a pacemaker), or if you have recently had a heart attack and you have a build-up of fluid in your lungs. What is diltiazem? Diltiazem is a calcium channel miller that is used to treat hypertension (high blood pressure) or angina (chest pain). Diltiazem injection is used to treat certain heart rhythm disorders such as atrial fibrillation or atrial flutter, or dangerously rapid heartbeats (tachycardia). Diltiazem may also be used for purposes not listed in this medication guide. What should I discuss with my healthcare provider before taking diltiazem? You should not use diltiazem if you are allergic to it, or if you have: ? a serious heart condition such as 'sick sinus syndrome' or 'AV block' (unless you have a pacemaker); ??? very low blood pressure; ??? if you have recently had a heart attack and you have a build-up of fluid in your lungs. You may not be able to receive diltiazem injection if you have certain heart rhythm conditions. Your doctor will test you for these conditions. Tell your doctor if you have ever had: ? congestive heart failure; ??? low blood pressure; ??? liver disease; or ??? kidney disease. It is not known whether this medicine will harm an unborn baby. Tell your doctor if you are or plan to become . You should not breastfeed while using this medicine. How should I take diltiazem? Follow all directions on your prescription label and read all medication guides or instruction sheets. Your doctor may occasionally change your dose. Use the medicine exactly as directed. Diltiazem oral is taken by mouth. Diltiazem injection is given as an infusion into a vein. A healthcare provider will give you this injection. Your heart rate will be constantly monitored using an electrocardiograph or ECG (sometimescalled an EKG). Your blood pressure and other vital signs will also be watched closely. Swallow the tablet or capsule whole and do not crush, chew, or break it. Your blood pressure will need to be checked often and you may need frequent blood tests. You may be given other heart or blood pressure medications to use, including nitroglycerin or a beta-miller medicine (such as atenolol, carvedilol, metoprolol, propranolol, or sotalol). Use all medications as directed and read all medication guides you receive. Do not change your dose or dosing schedule without your doctor's advice. Keep using your medicine even if you feel well. High blood pressure often has no symptoms. You may need to use blood pressure medicine for the rest of your life. If you need surgery, tell your surgeon you currently use blood pressure medication. You should not stop taking diltiazem suddenly. Stopping suddenly may make your condition worse. Store at room temperature away from moisture, heat, and light. What happens if I miss a dose? Take the medicine as soon as you can, but skip the missed dose if it is almost time for your next dose. Do not take two doses at one time. What happens if I overdose? Seek emergency medical attention or call the Poison Help line at . Overdose symptoms may include slow heartbeats or fainting. What should I avoid while taking diltiazem? Avoid drinking alcohol while taking diltiazem. Avoid taking an herbal supplement containing Frisbee's wort. Avoid driving or hazardous activity until you know how this medicine will affect you. Your reactions could be impaired. What are the possible side effects of diltiazem? Get emergency medical help if you have signs of an allergic reaction (hives, difficult breathing, swelling in your face or throat) or a severe skin reaction (fever, sore throat, burning eyes, skin pain, red or purple skin rash with blistering and peeling). Call your doctor at once if you have: ? chest pain; ??? slow heartbeats; ??? pounding heartbeats or fluttering in your chest; ??? a light-headed feeling, like you might pass out; or ??? heart problems--swelling, rapid weight gain, feeling short of breath. Common side effects may include: ? swelling; ??? dizziness, weakness; ??? headache; ??? nausea; or ??? rash. This is not a complete list of side effects and others may occur. Call your doctor for medical advice about side effects. You may report side effects to FDA at 2-386-GPL-5000. What other drugs will affect diltiazem? Sometimes it is not safe to use certain medications at the same time. Some drugs can affect your blood levels of other drugs you take, which may increase side effects or make the medications less effective. Many drugs can affect diltiazem. This includes prescription and ogzf-ezh-devawpv medicines, vitamins, and herbal products. Not all possible interactions are listed here. Tell your doctor about all your current medicines and any medicine you start or stop using. Where can I get more information? Your pharmacist can provide more information about diltiazem. Remember, keep this and all other medicines out of the reach of children, never share your medicines with others, and use this medication only for the indication prescribed. Every effort has been made to ensure that the information provided by [employer]. ('[employer]') is accurate, up-to-date, and complete, but no guarantee is made to that effect. Drug information contained herein may be time sensitive. [employer] information has been compiled for use by healthcare practitioners and consumers in the [place] and therefore [employer] does not warrant that uses outside of the [place] are appropriate, unless specifically indicated otherwise. [employer]'s drug information does not endorse drugs, diagnose patients or recommend therapy. [facility] [employer] drug information isan informational resource designed to assist licensed healthcare practitioners in caring for their p atients and/or to serve consumers viewing this service as a supplement to, and not a substitute for, the expertise, skill, knowledge and judgment of healthcare practitioners. The absence of a warningfor a given drug or drug combination in no way should be construed to indicate that the drug or drug combination is safe, effective or appropriate for any given patient. [facility] does not assume any responsibility for any aspect of healthcare administered with the aid of information [facility] provides. The information contained herein is not intended to cover all possible uses, directions, precautions, warnings, drug interactions, allergic reactions, or adverse effects. If you have questions about the drugs you are taking, check with your doctor, nurse or pharmacist. Copyright 0510-9157 [employer]. Version: 15.. Revision Date: 02/07/2021. metoprolol (oral/injection) (me TOE pro lol) Kapspargo Sprinkle, Lopressor, Metoprolol Succinate ER, Metoprolol Tartrate, Toprol-XL What is the most important information I should know about metoprolol? You should not use this medicine if you have a serious heart problem (heart block, sick sinus syndrome, slow heart rate), severe circulation problems, severe heart failure, or a history of slow heartbeats that caused fainting. What is metoprolol? Metoprolol is a beta-miller that affects the heart and circulation (blood flow through arteries and veins). Metoprolol is used to treat angina (chest pain) and hypertension (high blood pressure). It is also used to lower your risk of or needing to be hospitalized for heart failure. Metoprolol injection is used during the early phase of a heart attack to lower the risk of . Metoprolol may also be used for other purposes not listed in this medication guide. What should I discuss with my healthcare provider before taking metoprolol? You should not use this medicine if you are allergic to metoprolol, or other beta-blockers (atenolol, carvedilol, labetalol, nadolol, nebivolol, propranolol, sotalol, and others), or if you have: ? a serious heart problem such as heart block, sick sinus syndrome, or slow heart rate; ??? severe circulation problems; ??? severe heart failure (that required you to be in the hospital); or ??? a history of slow heart beats that have caused you to faint. Tell your doctor if you have ever had: ? asthma, chronic obstructive pulmonary disease (COPD), sleep apnea, or other breathing disorder; ??? diabetes (taking metoprolol may make it harder for you to tell when you have low blood sugar); ??? liver disease; ??? congestive heart failure; ??? problems with circulation (such as Raynaud's syndrome); ??? a thyroid disorder; or ??? pheochromocytoma (tumor of the adrenal gland). Do not give this medicine to a child without medical advice. Tell your doctor if you are or plan to become . It is not known whether metoprololwill harm an unborn baby. However, having high blood pressure during may cause complications such as diabetes or eclampsia (dangerously high blood pressure that can lead to medical problemsin both mother and baby). The benefit of treating hypertension may outweigh any risks to the baby. Ask a doctor before using this medicine if you are breast-feeding. Metoprolol can pass into breast milk and may cause dry skin, dry mouth, diarrhea, constipation, or slow heartbeats in your baby. How should I take metoprolol? Follow all directions on your prescription label and read all medication guides or instruction sheets. Your doctor may occasionally change your dose. Use the medicine exactly as directed. Metoprolol should be taken with a meal or just after a meal. Take the medicine at the same time each day. Swallow the capsule whole and do not crush, chew, break, or open it. A Toprol XL tablet can be divided in half if your doctor has told you to do so. Swallow the half-tablet whole, without chewing or crushing. Measure liquid medicine carefully. Use the dosing syringe provided, or use a medicine dose-measuring device (not a kitchen spoon). You will need frequent medical tests, and your blood pressure will need to be checked often. If you need surgery, tell the surgeon ahead of time that you are using metoprolol. You should not stop using metoprolol suddenly. Stopping suddenly may make your condition worse. If you have high blood pressure, keep using this medicine even if you feel well. High blood pressure often has no symptoms. You may need to use metoprolol for the rest of your life. Store at room temperature away from moisture and heat. Metoprolol injection is given as an infusion into a vein. A healthcare provider will give you this injection in a medical setting where your heart and blood pressure can be monitored. Metoprolol injections are given for only a short time before switching you to the oral form of this medicine. What happens if I miss a dose? Skip the missed dose and use your next dose at the regular time. Do not use two doses at one time. What happens if I overdose? Seek emergency medical attention or call the Poison Help line at . What should I avoid while taking metoprolol? Avoid driving or hazardous activity until you know how this medicine will affect you. Your reactions could be impaired. Drinking alcohol can increase certain side effects of metoprolol. What are the possible side effects of metoprolol? Get emergency medical help if you have signs of an allergic reaction: hives; difficulty breathing; swelling of your face, lips, tongue, or throat. Call your doctor at once if you have: ? very slow heartbeats; ??? a light-headed feeling, like you might pass out; ??? shortness of breath (even with mild exertion), swelling, rapid weight gain; or ??? cold feeling in your hands and feet. Common side effects may include: ? dizziness, tired feeling; ??? depression, confusion, memory problems; ??? nightmares, trouble sleeping; ??? diarrhea; or ??? mild itching or rash. This is not a complete list of side effects and others may occur. Call your doctor for medical advice about side effects. You may report side effects to FDA at 3-713-VHF-3967. What other drugs will affect metoprolol? Tell your doctor about all your current medicines. Many drugs can affect metoprolol, especially: ? any other heart or blood pressure medications; ??? epinephrine (Epi-Pen); ??? an antidepressant; ??? an ergot medicine--dihydroergotamine, ergonovine, ergotamine, methylergonovine; or ??? an MAO inhibitor--isocarboxazid, linezolid, phenelzine, rasagiline, selegiline, tranylcypromine. This list is not complete and many other drugs may affect metoprolol. This includes prescription and uetl-bwl-rnlkqhw medicines, vitamins, and herbal products. Not all possible drug interactions are listed here. Where can I get more information? Your pharmacist can provide more information about metoprolol. Remember, keep this and all other medicines out of the reach of children, never share your medicines with others, and use this medication only for the indication prescribed. Every effort has been made to ensure that the information provided by [employer]. ('[employer]') is accurate, up-to-date, and complete, but no guarantee is made to that effect. Drug information contained herein may be time sensitive. [employer] information has been compiled for use by healthcare practitioners and consumers in the [place] and therefore [employer] does not warrant that uses outside of the [place] are appropriate, unless specifically indicated otherwise. [facility] drug information does not endorse drugs, diagnose patients or recommend therapy. [employer] drug information isan informational resource designed to assist licensed healthcare practitioners in caring for their p atients and/or to serve consumers viewing this service as a supplement to, and not a substitute for, the expertise, skill, knowledge and judgment of healthcare practitioners. The absence of a warningfor a given drug or drug combination in no way should be construed to indicate that the drug or drug combination is safe, effective or appropriate for any given patient. [employer] does not assume any responsibility for any aspect of healthcare administered with the aid of information [employer] provides. The information contained herein is not intended to cover all possible uses, directions, precautions, warnings, drug interactions, allergic reactions, or adverse effects. If you have questions about the drugs you are taking, check with your doctor, nurse or pharmacist. Copyright 8744-3853 [employer]. Version: 17.03. Revision Date: 04/28/2019. To assist you in sharing the care we have provided to you with another provider or health care organization, we have created a 'Transition of Care Summary' inclusive of referral comments, medications, clinical results, follow up appointments etc. You may find and print a copy of your 'Transition ofCare Summary' on your Patient Portal. Your [facility] Patient Portal is located at [email or web address] If you have not yet signed up for a [facility] Patient Portal account you may request access by going to the [facility]'s website at [email or web address] and clicking on the blue oval on the left hand side of the page that says 'Sign Up for [facility] Patient Portal'. Your 'Summary of Care' will be waiting for you once your Portal account is created. I MIRNA MILTON , have received the following patient education materials/instructions and have verbalized understanding: Date: 01/18/2023 10:31:31 Patient Signature History and physical note * Jesus Patino: MODIFY, MODIFY, PERFORM, MODIFY, MODIFY, MODIFY Event Display: History and Physical Authored Date: [id number] MIRNA MILTON :1945 Age:77 years Sex:Male Visit Date:01/14/2023 Primary Care Physician: Mirna Barrera History of Present Illness 77 y/o M with hx of paroxysmal Afib on rivaroxaban??(s/p ablation 2017 and cardioversion 2019), CAD(s/p PCI 2005 at [facility], stents to LAD x 2/LCx x 2/ramus), HTN, HLD, AAA (since 2017[facility]. He was recently diagnosed with left sided pneumonia over a week ago also at [facility] emergency department. He said he had a fever of 102F and shortness of breath then. He was prescribed levofloxacin 750 mg QD and he completed 7 days of therapy.The past couple days, he has been waking up from sleep with sudden shortness of breath. But no orthopnea. Some shortness of breath on exertion (but no different from a week ago). Still has a cough but no longer productive. He??reports??he feels he has been in Afib for the past week. His HR at home??has been in the 110s.??He reports couple weeks ago, his HR was 60s.??Today he felt lightheaded and dizzy so he went back to [facility] emergency department. He hadn't taken any of his morning medications. At [facility], his HR was in the 150-160s bpm. Work up with CT angio chest??revealed no PE but??report indicated that he had a significant area of infiltrate in the left lower lobe involving posterior and lateral basal segments. Also reported a small-moderate left pleural effusion. There was cardiomegaly,enlarged ascending thoracic aorta with 4.3 cm diameter.??No pericardial effusion. WBC was 12. Renalfunction normal. Patient was given IV ceftriaxone and PO doxy. He was also given three IV metoprolol pushes at 5 mg each as well as two PO metoprolol at 75 mg each. He also received NS bolus of 250ccthree times. His COVID and influenza swabs were negative. Transfer request made to [facility] for acute inpatient bed due to capacity/staffing issues at [facility]. Patient reports that his HR has been 130s for mostly the entire time he was in the [facility] ED and during his EMS transport to [facility]. ?? Review of Systems Constitutional:?No??fevers,??No??chills,??No??sweats?? Eye:?No??recent visual problems?? ENT:?No??ear pain,??No??nasal congestion,??No??sore throat?? Respiratory:?Positive for??shortness of breath,??Positive for?cough?? Cardiovascular:??No?Chest??pain?Positive for??palpitations?No??syncope?? Gastrointestinal:?No??nausea,??No??vomiting,??No??diarrhea?? Genitourinary:?No??hematuria Tony/Lymph:??No??bruising tendency,??No??swollen lymph glands?? Endocrine:?No??excessive thirst,??No??excessive hunger?? Integumentary:?No??rash,??No??pruritus,??No??abrasions?? Neurologic: Alert & oriented X 4 Psychiatric:?No??anxiety,??No??depression ?? Physical Exam Vitals & Measurements T:??36.5?C ??(Oral)?? HR:??137??(Peripheral)?? RR:??18?? BP:??134/98?? SpO2:??96%?? HT:??187??cm?? WT:??98.4??kg?? BMI:??28.14?? Pain Score:??0 = No pain?? O2 Therapy:??Room air?? BSA:??2.26?? Gen -?NAD?? Resp - breath sound??clear bilaterally?? , ??wheezing??not present?? Card -?regular??rhythm,??tachycardic?? ,??systolic murmur:??3/5??at apex?? diminished pulses R >L foot (1+ DP over right foot, trace DP over left foot) Abd -?nontender?,??nondistended??,?normoactive?? bowel sounds Ext -?no?lower??extremity?edema??bilaterally Neuro - ??alert and oriented??x 3 Psych -?cooperative, pleasant?? Assessment/Plan 1.??Atrial fibrillation with RVR??I48.91 2.??Community acquired pneumonia of left lung??J18.9 3.??Acute congestive heart failure??I50.9 Orders: atorvastatin, 10 mg = 1 tab(s), Tab, Oral, qPM, Routine, Start date: 01/15/23 20:30:00 EST, 01/14/23 20:31:00 EST cefTRIAXone, 2 gm = 1 vial(s), IV Piggyback, Q24hr, Medication Indication Pneumonia- CAP, Routine, Start date: 01/15/23 13:00:00 EST, 100 mL/hr, Infuse over 30 minute(s), 01/15/23 13:00:00 EST dilTIAZem, 60 mg = 2 tab(s), Tab, Oral, Once, STAT, Start date: 01/14/23 22:37:00 EST, Stop date: 01/14/23 22:37:00 EST, 01/14/23 22:37:00 EST Xarelto, 20 mg = 2 tab(s), Tab, Oral, qPM, Routine, Start date: 01/15/23 20:30:00 EST, 01/15/23 20:30:00 EST Admit to Inpatient, 01/14/23 19:58:00 EST, Medical/Acute, Anticipated LOS 2 midnights or more EKG -- POC, 01/14/23 21:24:00 EST, Stat, Tachycardia, 01/14/23 21:24:00 EST, No ProBNP , Blood, AM Draw collect, 01/15/23 5:00:00 EST, Stop date 01/15/23 5:00:00 EST ? 77 y/o M with hx of paroxysmal Afib on rivaroxaban??(s/p ablation 2017 and cardioversion 2019), CAD (s/p PCI 2005 at [facility], stents to LAD x 2/LCx x 2/ramus), HTN, HLD, AAA (since 2017) who [facility] today due to lightheadedness and shortness of breath. Found to have Afib RVR and possible recurrent or resolved LLL pneumonia. [facility] requested ED to inpatient transfer so patient was accepted a t [facility] for inpatient care. ?? Patient on arrival showed persistent regular narrow complex tachycardia with HR of 140. Did not respond to IV metoprolol 5 mg x 1. EKG appears to show atrial flutter 3:1 block mostly, sometimes also with variable block. Bedside POCUS??showed bilateral b-lines with dilated IVC and collapsibility ~20%. Suspect patient also has mild acute congestive heart failure, probably diastolic (though would need repeat TTE to confirm). ProBNP at [facility] was ~2700 (previous baseline 400s at in 2018). Given heis not responding to IV metoprolol push (including the IV?? pushes??at [facility]), will give IV diltiazem push and start diltiazem drip.?? Given IV lasix 20 mg x 1 with over 1L UOP. Moved to ED space temporarily??to start diltiazem drip under closer monitoring. Discussed with Cardiology who feels that the atrial flutter RVR is secondary to his pneumonia and possible underlying CHF and will be difficult to control unless those two things are under control. Cardiology recommends maximizing PO metoprolol and PO diltiazem rather than diltiazem drip and that it is fine for HR to remain??~ 130 bpmwhile on PO AV gordo blockers until underlying systemic issues (CHF, pneumonia)??resolve. Also suggested digoxin loading if AV gordo blockers are maximized. ?? Will admit acute inpatient. ?? # Atrial flutter with RVR - IV diltiazem drip, start PO diltiazem, and try to wean drip - Continue home??PO metoprolol succinate at higher dose 100 mg BID and titrate - Continue Rivaroxaban - Telemetry ?? # Mild acute congestive heart failure, suspect diastolic - Gave IV lasix 20 mg x 1 - Repeat IV??lasix??in AM - Daily weights - TTE when next available ?? # Pneumonia, left lower lobe - Continue IV ceftriaxone and PO doxy - Follow blood cultures at [facility] - Follow leucocytosis ?? Full Code ?Based on the presentation, clinical findings and plan of care, I certify as the attending physician, that this patient will require an acute inpatient stay of greater than 2 midnights. It is reasonably expected that the patient will be discharged or transferred to a hospital within 96 hours after admission to this [facility]. ?? Critical care certification ?? Is there a high potential of sudden, clinically significant, or life threatening deterioration???Yes ?? Are there life and/or organ supporting intervention that require frequent personal assessment and manipulation or support to treat/prevent vital organ failure/deterioration???Yes ?? Interventions provided include: - IV Lasix:??Yes - IV antibiotics:??Yes - IV diltiazem drip:??Yes ? I personally performed 60 minutes of aggregate critical care time during admission. This includes time spent during direct patient bedside evaluation, beside reassessments including bedside POCUS,personally interpreting test results including serial EKGs and labs, discussions with tertiary [facility] specialists for consultation (cardiology), discussions with patient about his overall assessment and plan, and documentation. ? Problem List/Past Medical History Ongoing AAA (abdominal aortic aneurysm) Atrial fibrillation BPH (benign prostatic hyperplasia) Brain abscess Coronary atherosclerosis of eagle coronary artery 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 HLD (hyperlipidemia) HTN (hypertension) Internal hemorrhoid Metabolic syndrome X Moderate mitral regurgitation S/P coronary artery stent placement Syncope Medications Inpatient acetaminophen, 650 mg= 2 tab(s), Oral, q4hr, PRN atorvastatin, 10 mg= 1 tab(s), Oral, qPM cefTRIAXone dilTIAZem 125 mg [5 mg/hr] + Sodium Chloride 0.9% Premix Diluent 125 mL diltiazem 25 mg/5 mL, 25 mg= 5 mL, IV Push, Once doxycycline, 100 mg= 1 cap(s), Oral, BID metoprolol, 5 mg= 5 mL, IV Push, q2min, PRN Metoprolol Tartrate, 50 mg= 1 tab(s), Oral, q6hr ondansetron, 4 mg= 2 mL, IV Push, q4hr, PRN timolol maleate 0.5% ophthalmic solution, 1 drop(s), Eye-Both, BID Xarelto, 20 mg= 2 tab(s), Oral, qPM Home atorvastatin 10 mg oral tablet, 10 mg= 1 tab(s), Oral, Daily lisinopril 20 mg oral tablet, 20 mg= 1 tab(s), Oral, Daily metoprolol succinate, 75 mg, Oral, BID rivaroxaban 20 mg oral tablet, 20 mg= 1 tab(s), Oral, qPM timolol maleate 0.5% ophthalmic solution, 1 drop(s), OPTH, BID Allergies Pollen??(Anaphylaxis) penicillin??(Angioedema) shellfish??(Nausea and vomiting) Keppra??(Leukopenia) aspirin??(Nosebleed) cefTRIAXone??(Leukopenia) simvastatin??(Myalgia) Social History Alcohol Daily- Comments: 2 shots per day Electronic Cigarette/Vaping Electronic Cigarette Use: Never. Employment/School Retired Home/Environment Lives with Spouse. Living situation Home/Independent. Substance Abuse Never Tobacco Former tobacco user Tobacco Use:.- Comments: Less than a ppd when teenager. Quit 1962. Lab Results Last 24 Hours?? Chemistry ? Event Name?? Event Result?? Date/Time?? Creatinine 0.76 mg/dL??Low 01/14/23 21:15:00 Glucose Lvl DH 133 mg/dL??High 01/14/23 21:15:00 BUN DH 18 mg/dL 01/14/23 21:15:00 Est GFR DH 93 mL/min/1.73 m2 01/14/23 21:15:00 Sodium Lvl DH 141 mmol/L 01/14/23 21:15:00 Potassium Lvl DH 4.1 mmol/L 01/14/23 21:15:00 Chloride Lvl DH 104 mmol/L 01/14/23 21:15:00 CO2 DH 25 mmol/L 01/14/23 21:15:00 Anion Gap DH 12 mmol/L 01/14/23 21:15:00 Calcium Lvl DH 9.5 mg/dL 01/14/23 21:15:00 Magnesium Lvl DH 0.78 mmol/L 01/14/23 21:15:00 ? Hematology ? Event Name?? Event Result?? Date/Time?? WBC DH 14 x10(3)/mcL??High 01/14/23 21:15:00 RBC DH 4.02 x10(6)/mcL??Low 01/14/23 21:15:00 Hgb DH 12.8 g/dL??Low 01/14/23 21:15:00 Hct DH 38.6 %??Low 01/14/23 21:15:00 MCV DH 96 fL??High 01/14/23 21:15:00 MCH DH 31.8 pg 01/14/23 21:15:00 MCHC DH 33.2 g/dL 01/14/23 21:15:00 Platelet DH 371 x10(3)/mcL??High 01/14/23 21:15:00 RDWSD DH 45.1 fL??High 01/14/23 21:15:00 RDWCV DH 12.9 % 01/14/23 21:15:00 MPV DH 10.3 fL 01/14/23 21:15:00 Neutrophil % DH 83 % 01/14/23 21:15:00 Neutro Absolute DH 11.6 x10(3)/mcL??High 01/14/23 21:15:00 Lymph % DH 7 % 01/14/23 21:15:00 Lymph Absolute DH 1 x10(3)/mcL 01/14/23 21:15:00 Monocyte % DH 6 % 01/14/23 21:15:00 Monocy Absolute DH 0.9 x10(3)/mcL 01/14/23 21:15:00 Eos % DH 3 % 01/14/23 21:15:00 Eos Absolute DH 0.4 x10(3)/mcL 01/14/23 21:15:00 Basophil % DH 0 % 01/14/23 21:15:00 Baso Absolute DH 0 x10(3)/mcL 01/14/23 21:15:00 Immature Gran % DH 0.5 % 01/14/23 21:15:00 Immature Gran DH 0.07 x10(3)/mcL??High 01/14/23 21:15:00 NRBC Absolute DH 0 01/14/23 21:15:00 NRBC% auto DH 0 % 01/14/23 21:15:00 ? Diagnostic Results POCUS: bilateral b-lines in lung jones, trace pleural effusions bilat, IVC 2.3 cm with collapsibility of ~20%, LVH, RV doesn't appear dilated, no pericardial effusion ECG Atrial flutter with variable block [Electronically Signed on: 01/14/2023 22:43 EST] Jesus Patino M.D. [Electronically Signed on: 01/15/2023 00:53 EST] Jesus Patino M.D. [Electronically Signed on: 01/15/2023 01:12 EST] Jesus Patino M.D. [Electronically Signed on: 01/15/2023 05:59 EST] Jesus Patino M.D. [Electronically Signed on: 01/15/2023 06:40 EST] Jesus Patino M.D. [Electronically Signed on: 01/15/2023 06:46 EST] Jesus Patino M.D. [Verified on: 01/14/2023 22:43 EST] Jesus Patino M.D. Progress note * Alan Diaz MD: MODIFY, PERFORM Event Display: Progress Note-Physician Authored Date: [id number] MIRNA MILTON :1945 Age:77 years Sex:Male Visit Date:01/14/2023 Primary Care Physician: Mirna Barrera Anticipated Discharge Date 01/18 afternoon Subjective Comfortable in bed; no complaints, no recurrence of sensation he had yesterday morning. Reports feels okay walking around room, to bathroom. Walked with his RN today and tolerated withoutissue. ?? Leukocytosis resolved. Chemistry normal. Digoxin level therapeutic 1.2 Objective Vitals & Measurements T:??36.5?C ??(Oral)?? TMIN:??36.5?C ??(Oral)?? TMAX:??37.2?C ??(Oral)?? HR:??63??(Monitored)?? RR:??17?? BP:??131/72?? SpO2:??96%?? WT:??95??kg?? Pain Score:??0 = No pain?? O2 Flow Rate:??1?? O2 Therapy:??Room air?? Physical Exam Comfortable in bed, on laptop mmm, no JVD irregular, normal rate, no MRG appreciated soft, NT/ND no edema Lab Results I personally reviewed his labs, pertinent findings are included in the interval/plan. Diagnostic Results No new imaging. ECG Telemetry shows afib with good rate control, averaging ~70/min. Assessment/Plan 1.??Atrial flutter with rapid ventricular response??I48.92 2.??Community acquired pneumonia of left lung??J18.9 3.??Acute congestive heart failure??I50.9 4.??Atrial fibrillation??I48.91 5.??HTN (hypertension)??I10 Orders: dilTIAZem, 90 mg = 3 tab(s), Tab, Oral, q6hr, Routine, Start date: 01/15/23 12:00:00 EST, 01/15/23 12:00:00 EST Metoprolol Succinate ER, 200 mg = 2 tab(s), Tab-ER, Oral, Daily, Routine, Start date: 01/17/23 8:30:00 EST, 01/16/23 16:49:00 EST .Hemogram DH, Blood, AM Draw collect, 01/17/23 5:00:00 EST, Stop date 01/17/23 5:00:00 EST ProBNP DH, Blood, AM Draw collect, 01/18/23 5:00:00 EST, Stop date 01/18/23 5:00:00 EST 77 y/o M with hx of paroxysmal Afib on rivaroxaban??(s/p ablation 2017 and cardioversion 2019), CAD(s/p PCI 2005 at [facility], stents to LAD x 2/LCx x 2/ramus), HTN, HLD, AAA (since 2018) who presented [facility] 01/14 due to lightheadedness and shortness of breath. Found to be in aflutter with RVR to 160s.Received multiple IVP of metoprolol in ED there w/o significant improvement. Initiated on ceftriaxone+doxy in the ED there for LLL pneumonia. On arrival to [facility], remained uncontrolled; diltiazem gtt was tried with no improvement; he did at least remain normotensive throughout. Ultimately, decided toload with digoxin and continue with PO diltiazem and metoprolol. ?? # Atrial flutter with RVR, resolved # Now in A-Fib with mostly normal rates - IV diltiazem drip weaned off, PO diltiazem 90 mg q6h; plan is to adjust this dosage based on response while on succinate now; then convert to ER formulation on discharge for ease of use at home. -??Used to be on metoprolol succinate 75mg BID at home, was placed on tartrate 50mg q6h; 01/17 switched to 200mg qD - sp IV digoxin loading 0.25 mg q6h x 4 doses; cw PO 250mcg daily (PO started 01/16 AM); - digoxin level 1.2 on 01/17; will recheck tomorrow; if continues to trend up past 1.2, will discharge on 125mcg dose; if remains at 1.2 or lower; okay to DC on 250mcg dose - Continue Rivaroxaban - Telemetry - Discussed with EP; plan is for ziopatch on discharge and outpatient follow- up with them. - If somehow slips back into refractory a-flutter with high ventricular rates; can chemically cardiovert with amiodarone since he has been on rivaroxaban for AC. Would also re-contact EP at that point. ?? # Mild acute congestive heart failure, likely diastolic; improved - sp furosemide 20mg IV x1 01/15, appears euvolemic currently; no B-line burden, no evidence of venous congestion despite IVC dilation (likely from TR). - Daily weights - TTE at [facility] ED report from 01/14 faxed over: Normal LV wall thickness, size. Estimated EF 55-60%.No RWMA. Grossly normal RV size/function. Mild dilation of both atria. The AV is sclerotic with trace regurgitation. Mitral annular calcification with [id number] MR. Normal TV appearance with mo coskfm-un-uvnhub TR. Estimated RVSP 39. The ascending aorta is mildly dilated. Of note the patientwas in uncontrolled atrial fibrillation throughout the study with jami-lu-ajyn variation. - pBNP on discharge day ?? # Pneumonia, left lower lobe - Continue IV ceftriaxone and PO doxy for 5 days (last day would be 01/18) - Follow blood cultures at [facility] ?? Full Code Rivaroxaban Cardiac Home 01/18 at earliest [Electronically Signed on: 01/17/2023 11:49 EST] Alan Diaz MD [Verified on: 01/17/2023 11:49 EST] Alan Diaz MD * Alan Diaz MD: PERFORM Event Display: Progress Note-Physician Authored Date: [id number] Resumed his lisinopril at 5mg dose today; titrate up as possible to prior home dose. Indication wasCAD (s/p BRENDA). [Electronically Signed on: 01/17/2023 11:54 EST] Alan Diaz MD * Alan Diaz MD: PERFORM Event Display: Progress Note-Physician Authored Date: [id number] MIRNA MILTON :1945 Age:77 years Sex:Male Visit Date:01/14/2023 Primary Care Physician: Mirna Barrera Anticipated Discharge Date 01/18 for completion of antibiotics; hopefully able to optimize rate-control by then as well Subjective HR better today 60-100s; will check dig level tomorrow AM. Now objective will be to titrate diltiazem and metoprolol. Currently in afib on telemetry. ?? Discussed with EP; plan is ZioPatch on discharge and they will arrange follow-up with him. Patient agreeable with plan. Objective Vitals & Measurements T:??37.2?C ??(Oral)?? TMIN:??36.8?C ??(Oral)?? TMAX:??37.6?C ??(Oral)?? HR:??55??(Peripheral)?? HR:??62??(Apical)?? RR:??22?? BP:??138/73?? SpO2:??95%?? WT:??96.2??kg?? Pain Score:??0 = No pain?? O2 Flow Rate:??1?? O2 Therapy:??Room air?? Physical Exam Comfortable in bed, on laptop mmm, no JVD irregular, normal rate, no MRG appreciated soft, NT/ND no edema Lab Results Last 1 Week?? Chemistry ? Event Name?? Event Result?? Date/Time?? Creatinine 0.73 mg/dL??Low 01/15/23 05:45:00 Glucose Lvl DH 125 mg/dL??High 01/15/23 05:45:00 BUN DH 15 mg/dL 01/15/23 05:45:00 Est GFR DH 94 mL/min/1.73 m2 01/15/23 05:45:00 Sodium Lvl DH 140 mmol/L 01/15/23 05:45:00 Potassium Lvl DH 3.9 mmol/L 01/15/23 05:45:00 Chloride Lvl DH 103 mmol/L 01/15/23 05:45:00 CO2 DH 25 mmol/L 01/15/23 05:45:00 Anion Gap DH 12 mmol/L 01/15/23 05:45:00 Calcium Lvl DH 9.1 mg/dL 01/15/23 05:45:00 Magnesium Lvl DH 0.7 mmol/L 01/15/23 05:45:00 Lactic Acid Lvl DH 1.1 mmol/L 01/16/23 06:00:00 CRP 43.6 mg/L??High 01/16/23 06:00:00 ProBNP DH 2182 pg/mL??High 01/15/23 05:45:00 ? Hematology ? Event Name?? Event Result?? Date/Time?? WBC DH 12.1 x10(3)/mcL??High 01/15/23 05:45:00 RBC DH 3.49 x10(6)/mcL??Low 01/15/23 05:45:00 Hgb DH 11.3 g/dL??Low 01/15/23 05:45:00 Hct DH 33.6 %??Low 01/15/23 05:45:00 MCV DH 96.3 fL??High 01/15/23 05:45:00 MCH DH 32.4 pg??High 01/15/23 05:45:00 MCHC DH 33.6 g/dL 01/15/23 05:45:00 Platelet DH 317 x10(3)/mcL 01/15/23 05:45:00 RDWSD DH 44.8 fL 01/15/23 05:45:00 RDWCV DH 12.8 % 01/15/23 05:45:00 MPV DH 9.9 fL 01/15/23 05:45:00 Neutrophil % DH 83 % 01/14/23 21:15:00 Neutro Absolute DH 11.6 x10(3)/mcL??High 01/14/23 21:15:00 Lymph % DH 7 % 01/14/23 21:15:00 Lymph Absolute DH 1 x10(3)/mcL 01/14/23 21:15:00 Monocyte % DH 6 % 01/14/23 21:15:00 Monocy Absolute DH 0.9 x10(3)/mcL 01/14/23 21:15:00 Eos % DH 3 % 01/14/23 21:15:00 Eos Absolute DH 0.4 x10(3)/mcL 01/14/23 21:15:00 Basophil % DH 0 % 01/14/23 21:15:00 Baso Absolute DH 0 x10(3)/mcL 01/14/23 21:15:00 Immature Gran % DH 0.5 % 01/14/23 21:15:00 Immature Gran DH 0.07 x10(3)/mcL??High 01/14/23 21:15:00 NRBC Absolute DH 0 01/14/23 21:15:00 NRBC% auto DH 0 % 01/14/23 21:15:00 ? Diagnostic Results no new imaging ECG Telemetry reviewed, has converted from atrial flutter with RVR to afib with normal rate Assessment/Plan 1.??Atrial flutter with rapid ventricular response??I48.92 2.??Community acquired pneumonia of left lung??J18.9 3.??Acute congestive heart failure??I50.9 4.??Atrial fibrillation??I48.91 5.??HTN (hypertension)??I10 Orders: digoxin, 250 mcg = 2 tab(s), Tab, Oral, Daily, NOW, Start date: 01/16/23 8:45:00 EST, 01/16/23 8:45:00 EST dilTIAZem, 90 mg = 3 tab(s), Tab, Oral, q6hr, Routine, Start date: 01/15/23 12:00:00 EST, 01/15/23 12:00:00 EST Metoprolol Tartrate, 50 mg = 1 tab(s), Tab, Oral, q6hr, Routine, Start date: 01/15/23 8:30:00 EST, 01/15/23 8:30:00 EST .Hemogram DH, Blood, AM Draw collect, 01/17/23 5:00:00 EST, Stop date 01/17/23 5:00:00 EST Basic Metabolic Panel DH, Blood, AM Draw collect, 01/17/23 5:00:00 EST, Stop date 01/17/23 5:00:00 EST Digoxin DH, Blood, AM Draw collect, 01/17/23 5:00:00 EST, Stop date 01/17/23 5:00:00 EST EKG -- POC, 01/16/23 9:31:00 EST, Routine, Tachycardia, 01/16/23 9:31:00 EST, No 77 y/o M with hx of paroxysmal Afib on rivaroxaban??(s/p ablation 2017 and cardioversion 2019), CAD(s/p PCI 2005 at [facility], stents to LAD x 2/LCx x 2/ramus), HTN, HLD, AAA (since 2017) who presented [facility] 01/14 due to lightheadedness and shortness of breath. Found to be in aflutter with RVR to 160s.Received multiple IVP of metoprolol in ED there w/o significant improvement. Initiated on ceftriaxone+doxy in the ED there for LLL pneumonia. On arrival to [facility], remained uncontrolled; diltiazem gtt was tried with no improvement; he did at least remain normotensive throughout. Ultimately, decided toload with digoxin and continue with PO diltiazem and metoprolol. ?? # Atrial flutter with RVR, resolved # Now in A-Fib with mostly normal rates - IV diltiazem drip weaned off, PO diltiazem 90 mg q6h -??Changed succinate to??PO metoprolol tartrate 50 q6h (home Rx was succinate 75mg BID) - sp IV digoxin loading 0.25 mg q6h x 4 doses; cw PO 250mcg daily (PO started 01/16 AM) - dig level 01/17 AM - Continue Rivaroxaban - Telemetry - Discussed with EP; plan is for ziopatch on discharge and outpatient follow- up with them. - If somehow slips back into refractory a-flutter with high ventricular rates; can chemically cardiovert with amiodarone since he has been on rivaroxaban for AC. Would also re-contact EP at that point. ?? # Mild acute congestive heart failure, likely diastolic - sp furosemide 20mg IV x1 01/15, appears euvolemic currently; no B-line burden, no evidence of venous congestion despite IVC dilation (likely from TR). - Daily weights - TTE at [facility] ED report from 01/14 faxed over: Normal LV wall thickness, size. Estimated EF 55-60%.No RWMA. Grossly normal RV size/function. Mild dilation of both atria. The AV is sclerotic with trace regurgitation. Mitral annular calcification with fjid-ea-kvxtzcih MR. Normal TV appearance with mo fiwcfm-pj-zfhaea TR. Estimated RVSP 39. The ascending aorta is mildly dilated. Of note the patientwas in uncontrolled atrial fibrillation throughout the study with ulss-lg-ojjv variation. - pBNP on discharge day ?? # Pneumonia, left lower lobe - Continue IV ceftriaxone and PO doxy for 5 days (last day would be 01/18) - Follow blood cultures at [facility] ?? Full Code Rivaroxaban Cardiac Home 01/18 at earliest [Electronically Signed on: 01/16/2023 13:23 EST] Alan Diaz MD [Verified on: 01/16/2023 13:23 EST] Alan Diaz MD * Alan Diaz MD: PERFORM Event Display: Progress Note-Physician Authored Date: [id number] Held a dose of his diltiazem today; will switch metoprolol to ER formulation tomorrow (equivalent 200mg), and then continue with diltiazem q6h and adjust that dose/frequency as needed. [Electronically Signed on: 01/16/2023 16:55 EST] Alan Diaz MD * Alan Diaz MD: MODIFY Alan Diaz MD: MODIFY, MODIFY Event Display: Progress Note-Physician Authored Date: [id number] MIRNA MILTON :1945 Age:77 years Sex:Male Visit Date:01/14/2023 Primary Care Physician: Mirna Barrera Anticipated Discharge Date TBD Subjective Feels his cough and breathing is better. Was on 2LNC while sleeping as he de- saturates. Off O2 whenawake with SpO2 93-95% on room air. Repeat bedside POCUS appears to show no more bilateral b-lines and mostly focal b-lines over left lower lobe. IVC still appears dilated with collapsibility around 20%. ?? Objective Vitals & Measurements T:??36.5?C ??(Oral)?? HR:??128??(Peripheral)?? RR:??22?? BP:??131/86?? SpO2:??97%?? HT:??187??cm?? WT:??98.4??kg?? BMI:??28.14?? Pain Score:??0 = No pain?? O2 Flow Rate:??2?? O2 Therapy:??Nasal cannula?? BSA:??2.26?? Physical Exam Gen -?NAD?? HENT -?no JVD?? Resp - crackles over left base Card -?regular??rhythm,??tachycardic?? ,??sys murmur 2/5 at apex?? Abd -?nontender?,??nondistended??,?normoactive?? bowel sounds Ext -?no?lower??extremity?edema??bilaterally Psych -?cooperative, pleasant?? Lab Results Last 24 Hours?? Chemistry Event Name?? Event Result?? Date/Time?? Creatinine 0.73 mg/dL??Low 01/15/23 05:45:00 Glucose Lvl DH 125 mg/dL??High 01/15/23 05:45:00 BUN DH 15 mg/dL 01/15/23 05:45:00 Est GFR DH 94 mL/min/1.73 m2 01/15/23 05:45:00 Sodium Lvl DH 140 mmol/L 01/15/23 05:45:00 Potassium Lvl DH 3.9 mmol/L 01/15/23 05:45:00 Chloride Lvl DH 103 mmol/L 01/15/23 05:45:00 CO2 DH 25 mmol/L 01/15/23 05:45:00 Anion Gap DH 12 mmol/L 01/15/23 05:45:00 Calcium Lvl DH 9.1 mg/dL 01/15/23 05:45:00 Magnesium Lvl DH 0.7 mmol/L 01/15/23 05:45:00 ProBNP DH 2182 pg/mL??High 01/15/23 05:45:00 ? Hematology Event Name?? Event Result?? Date/Time?? WBC DH 12.1 x10(3)/mcL??High 01/15/23 05:45:00 RBC DH 3.49 x10(6)/mcL??Low 01/15/23 05:45:00 Hgb DH 11.3 g/dL??Low 01/15/23 05:45:00 Hct DH 33.6 %??Low 01/15/23 05:45:00 MCV DH 96.3 fL??High 01/15/23 05:45:00 MCH DH 32.4 pg??High 01/15/23 05:45:00 MCHC DH 33.6 g/dL 01/15/23 05:45:00 Platelet DH 317 x10(3)/mcL 01/15/23 05:45:00 RDWSD DH 44.8 fL 01/15/23 05:45:00 RDWCV DH 12.8 % 01/15/23 05:45:00 MPV DH 9.9 fL 01/15/23 05:45:00 Neutrophil % DH 83 % 01/14/23 21:15:00 Neutro Absolute DH 11.6 x10(3)/mcL??High 01/14/23 21:15:00 Lymph % DH 7 % 01/14/23 21:15:00 Lymph Absolute DH 1 x10(3)/mcL 01/14/23 21:15:00 Monocyte % DH 6 % 01/14/23 21:15:00 Monocy Absolute DH 0.9 x10(3)/mcL 01/14/23 21:15:00 Eos % DH 3 % 01/14/23 21:15:00 Eos Absolute DH 0.4 x10(3)/mcL 01/14/23 21:15:00 Basophil % DH 0 % 01/14/23 21:15:00 Baso Absolute DH 0 x10(3)/mcL 01/14/23 21:15:00 Immature Gran % DH 0.5 % 01/14/23 21:15:00 Immature Gran DH 0.07 x10(3)/mcL??High 01/14/23 21:15:00 NRBC Absolute DH 0 01/14/23 21:15:00 NRBC% auto DH 0 % 01/14/23 21:15:00 ? Assessment/Plan 1.??Atrial flutter with rapid ventricular response??I48.92 2.??Community acquired pneumonia of left lung??J18.9 3.??Acute congestive heart failure??I50.9 Orders: atorvastatin, 10 mg = 1 tab(s), Tab, Oral, qPM, Routine, Start date: 01/15/23 20:30:00 EST, 01/14/23 20:31:00 EST cefTRIAXone, 2 gm = 1 vial(s), Injection, IV Piggyback, Q24hr, Medication Indication Pneumonia- CAP, Routine, Start date: 01/15/23 13:00:00 EST, 100 mL/hr, Infuse over 30 minute(s), 01/15/23 13:00:00EST digoxin, 250 mcg = 1 mL, Injection, IV Push, q6hr, Routine, Start date: 01/15/23 9:45:00 EST, 3 dose(s)/time(s), Stop date: 01/16/23 3:44:00 EST, 01/15/23 9:45:00 EST dilTIAZem, 90 mg = 3 tab(s), Tab, Oral, q6hr, Routine, Start date: 01/15/23 12:00:00 EST, 01/15/23 12:00:00 EST dilTIAZem, 90 mg = 3 tab(s), Tab, Oral, Once, STAT, Start date: 01/15/23 5:43:00 EST, Stop date: 01/15/23 5:43:00 EST, 01/15/23 5:43:00 EST Xarelto, 20 mg = 2 tab(s), Tab, Oral, qPM, Routine, Start date: 01/15/23 20:30:00 EST, 01/15/23 20:30:00 EST Admit to Inpatient, 01/14/23 19:58:00 EST, Medical/Acute, Anticipated LOS 2 midnights or more Resuscitation Status, 01/15/23 3:31:00 EST, Full Resuscitation XR Chest 2 Views, 01/15/23 6:30:00 EST, Stat, 01/15/23 6:30:00 EST, Reason: rapid atrial flutter, follow up pleural effusions, evaluate for pulmonary edema, ? No, Transport Mode: Ambulatory, Rad Type ? 77 y/o M with hx of paroxysmal Afib on rivaroxaban??(s/p ablation 2017 and cardioversion 2019), CAD(s/p PCI 2005 at [facility], stents to LAD x 2/LCx x 2/ramus), HTN, HLD, AAA (since 2017) [facility]. Found to have Afib RVR and possible recurrent or unresolved LLL pneumonia. CT angio of chest showed no PE but??report indicated that he had a significant area of infiltrate in the left lower lobe involving posterior and lateral basal segments. [facility] requested ED to inpatient transfer so patient was accepted at [facility] for inpatient care. ?? Patient on arrival showed persistent regular narrow complex tachycardia with HR of 140. Did not respond to IV metoprolol 5 mg x 1. EKG appears to show atrial flutter 3:1 block mostly, sometimes also with variable block. Bedside POCUS??showed bilateral b-lines with dilated IVC and collapsibility ~20%. Suspect patient also has mild acute congestive heart failure, probably diastolic (though would need repeat TTE to confirm). ProBNP at [facility] was ~2600 (previous baseline 400s at in 2018). Given this was his fourth IV metoprolol push today (including the ones given at [facility]) and none of them appear to have helped his HR, will give IV diltiazem and start diltiazem drip.?? Given IV lasix 20 mg x 1 with over 1L UOP. Moved to ED space temporarily??to start diltiazem drip under closer monitoring. Discussed with Cardiology who felt that the atrial flutter is secondary to the pneumonia and possible underlying CHF and will be difficult to control unless those two things are under control. Cardiology recommends maximizing PO metoprolol and PO diltiazem rather than diltiazem drip and that it is fine for HR to remain??~ 130 bpm while on PO AV gordo blockers until underlying systemic issues (CHF, pneumonia)??resolve. Also suggested digoxin loading if AV gordo blockers are maximized. ?? Patient's HR was unaffected by IV diltiazem drip. HR remained 128-130 bpm consistently whether running at 5mg/hr or 15mg/hr. PO diltiazem maximized to 90 mg q6h while IV diltiazem drip was weaned. POmetoprolol tartrate titrated to 50 mg q6h. IV digoxin 0.25mg??loading q6h started around 3:40am. Repeat CXR shows cardiomegaly with mild interstitial edema with trace left pleural effusion. ProBNP improved from 2700 at [facility] to 2100. ?? Admitted acute inpatient. ?? # Atrial flutter with RVR - PO diltiazem 90 mg q6h, IV diltiazem drip weaned off -??Changed succinate to??PO metoprolol tartrate and titrated to 50 q6h - IV digoxin loading 0.25 mg q6h x 4 doses started at 3:40 am 01/15 - Continue Rivaroxaban - Telemetry ?? # Mild acute congestive heart failure, suspect diastolic - Gave IV lasix 20 mg x 1 overnight, follow and repeat as needed - Daily weights - TTE when next available ?? # Pneumonia, left lower lobe - Continue IV ceftriaxone and PO doxy - Follow blood cultures at [facility] - Follow leucocytosis ?? Full Code ?Based on the presentation, clinical findings and plan of care, I certify as the attending physician, that this patient will require an acute inpatient stay of greater than 2 midnights. It is reasonably expected that the patient will be discharged or transferred to a hospital within 96 hoursafter admission to this [facility]. [Electronically Signed on: 01/15/2023 07:54 EST] Jesus Patino M.D. [Verified on: 01/15/2023 07:54 EST] Jesus Patino M.D. * Alan Diaz MD: PERFORM Event Display: Progress Note-Physician Authored Date: [id number] Has remained tachycardic to 120 to high 130s range throughout day; however normotensive and asymptomatic. Even while asleep he is tachycardic to 130s. He is already on dilt 90mg q6h and lopressor 50mg q6h; has been dig loaded IV.??If no improvement after 48h of antibiotics; will call EP to discuss cardioversion (either chemical here with amio or electrical there) vs ablation. ?? Formal TTE report from [facility] shows new moderate tricuspid regurgitation, RVSP of 39; otherwise similar to priors, normal EF%, small degree of AR. [Electronically Signed on: 01/15/2023 17:11 EST] Alan Diaz MD Note * Chayito Oropeza: PERFORM Event Display: Admission Data Authored Date: [id number] * Chayito Oropeza: PERFORM Event Display: Admission Data Authored Date: [id number] * Chayito Oropeza: PERFORM Event Display: Admission Data Authored Date: [id number] * Generated Domain User for [id number]: PERFORM, VERIFY, VERIFY Event Display: Report Authored Date: [id number] Point of care US performed by ordering provider. Please refer to provider note for interpretation Final Dictated: 01/15/2023 7:38 am Generated Domain User for [id number] Signed (Electronic Signature): 01/15/2023 7:38 am Signed by: Generated Domain User for [id number] Technologist: MORGAN Jones * Generated Domain User for [id number]: PERFORM, VERIFY, VERIFY Event Display: Report Authored Date: [id number] Point of care US performed by ordering provider. Please refer to provider note for interpretation Final Dictated: 01/14/2023 8:30 pm Generated Domain User for [id number] Signed (Electronic Signature): 01/14/2023 8:30 pm Signed by: Generated Domain User for [id number] Technologist: MORGAN Jones XR Chest 2 Views * Kelly Lion M.D.: VERIFY, VERIFY, PERFORM Generated Domain User for [id number]: TRANSCRIBE Event Display: Report Authored Date: [id number] EXAMINATION: XR CHEST 2 VIEWS CLINICAL HISTORY: rapid atrial flutter, follow up pleural effusions, evaluate for pulmonary edema TECHNIQUE: PA and lateral views of the chest COMPARISON: CT chest 12/19/2016 FINDINGS: Moderate cardiomegaly. Anterior left lower lobe opacity with obscuration of the left hemidiaphragm. Mild interstitial edema with trace left pleural effusion. No effusion on the right. No pneumothorax. No acutely displaced rib fracture. IMPRESSION: 1. Moderate cardiomegaly with mild interstitial edema and trace left effusion. 2. Left lower lobe opacity, concerning for infectious versus inflammatory process. I have personally reviewed the image(s) and the resident's interpretation and agree with the findings, Kelly Lion MD at 01/15/2023 7:18 AM Thank you for letting us participate in the care of this patient. If you are a health care provider and have any questions regarding this report, please contact the number below. For patients who have questions please contact the health patient care that requested your imaging first. Electronically signed by: Kelly Lion MD, [facility] ([phone]), at 01/15/2023 7:18 AM Final Dictated: 01/15/2023 7:23 am Kelly Lion M.D. Signed (Electronic Signature): 01/15/2023 7:18 am Signed by: Kelly Lion M.D. Transcribed by: [facility] Patient Care team information Care Team Personnel Name: Mirna Barrera Position: [facility] No Access Member Role: Informed Provider Address: Address: [address] [place] [id number] Name: Salvatore Escamilla PA-C Position: [facility] Physician Acute/Clinic/PNED Member Role: Physician Head Loader Name: Kalani García Position: [facility] RN Member Role: ED Nurse Name: Mau Scott V Position: [facility] RN Member Role: ED Nurse Care Team Related Persons Name: AMADEO MILTON Name: CHIKI MILTON Address: Home [address] [place] [id number]
--- OUTSIDE RECORDS SUMMARY | 2024-07-21 19:26 | XMS_ITS | Encounter Summary ---
[place] [address] Care Team Providers Care Director Of Sustainability Programs Name Role Phone Camacho Barrera DO Primary Care Provider [phone] Encounter Details Date Type Department Care Team (Late st Contact Info) Description 11/27/2023 Telephone [place] [address] Maribeth Cullen Social History Tobacco Use Types Packs/Day Years Used Date Smoking Tobacco: Never Smokeless Tobacco: Never Alcohol Use Standard Drinks/Week Comments Yes 14 (1 standard drink = 0.6 oz pu re alcohol) 2-3 drinks/night [facility] Inpatient Questions Answer Date Recorded Does Anyone [...] * Telephone Encounter - Maribeth Cullen - 11/27/2023 4:10 PM EST Patient canceled his appointment on 11/25 and will call us back to reschedule. B CAR DUP - Carotid stenosis; Post CEA, 3M F/U Prateek Pike Sent letter x2 Closed recall Gm 11/27/2023 documented in this encounter Plan of Treatment Upcoming Encounters Date Type Department Care Team (Late st Contact Info) Description 09/08/2024 9:40 AM EDT Office Visit Cardiology at [address] [place] [address] Gonzales Torres MD [facility] [place] [address] documented as of this encounter Visit Diagnoses Not on filedocumented in this encounter Care Teams Director Of Sustainability Programs Relationship Specialty Start Date End Date Camacho Barrera DO [address] [place] [address] PCP - General Family Medicine 07/01/18 documented as of this encounter
--- OUTSIDE RECORDS SUMMARY | 2024-07-21 19:26 | XMS_ITS | Encounter Summary ---
Author Organization [facility] [place] [address] Care Team Providers Care Land Management Supervisor Name Role Phone Camacho Barrera DO Primary Care Provider [phone] Encounter Details Date Type Department Care Team (Latest Contact Info) Description 02/11/2024 Travel Social History Tobacco Use Types Packs/Day Years Used Date Smoking Tobacco: Never Smokeless Tobacco: Never Alcohol Use Standard Drinks/Week Comments Yes 14 (1 standard drink = 0.6 oz pu re alcohol) 2-3 drinks/night [facility] Inpatient Questions Answer Date Recorded Does Anyone [...] on file documented as of this encounter Plan of Treatment Upcoming Encounters Date Type Department Care Team (Late st Contact Info) Description 09/08/2024 9:40 AM EDT Office Visit Cardiology at [address] [place] [address] Gonzales Torres MD [facility] [address] documented as of this encounter Visit Diagnoses Not on filedocumented in this encounter Care Teams Land Management Supervisor Relationship Specialty Start Date End Date Camacho Barrera DO [address] [place] [address] PCP - General Family Medicine 07/01/18 documented as of this encounter
--- OUTSIDE RECORDS SUMMARY | 2024-07-21 19:26 | XMS_ITS | Clinical Summary ---
[facility] [place] [address] Care Team Providers Care Material Engineer Name Role Phone Camacho Barrera DO Primary Care Provider [phone] Allergies Active Allergy Reactions Criticality Noted Date Comments Bee Pollen Anaphylaxis High 02/14/2015 Bee Stings Use to carry Epi Pen, Ceftriaxone Other (See Comments) 07/26/2018 leukopenia Levetiracetam Other (See Comments) 07/26/2018 leukopenia Penicillins Angioedema High 01/29/2015 States as a child, had facial, lip swelling. Shellfish Containing Products Nausea And Vomiting High 08/23/2011 SHRIMP only. ?Blotches, swelling, Shrimp Simvastatin Other (See Comments) 07/26/2018 Myalgia Medications Medication Sig Dispensed Refills Start Date End Date Status timoloL (Timoptic) 0.5 % Drops Place 1 drop into the left eye 2 times daily. 06/19/2022 Active atorvastatin (Lipitor) 80 mg tablet Take 1 tablet by mouth every evening. 90 tablet 3 05/21/2023 Active OneTouch Verio test strips Strip USE TO CHECK BLOOD GLUCOSE DAILY DIRECTED 03/19/2023 Active clotrimazole (LOTRIMIN) 1 % Cream Apply topically as needed. Active acetaminophen (Tylenol) 500 mg tablet Take 1 tablet by mouth every 4 hours as needed for Pain (For Mild Pain (1-3) or Fever.). 30 tablet 1 07/17/2023 Active clopidogreL (Plavix) 75 mg tablet Take 1 tablet by mouth daily. 90 tablet 3 07/18/2023 Active lisinopriL (Zestril) 2.5 mg tablet Take 2.5 mg by mouth daily. Active dilTIAZem CD (Cardizem CD) 240 mg CD (ER) 24 hr casule Take 240 mg by mouth 2 times daily. 01/14/2024 Active Active Problems Problem Noted Date Diagnosed Date Left carotid artery stenosis 07/16/2023 Acute ischemic stroke 05/20/2023 Stroke 05/20/2023 Premature ventricular beats 09/11/2022 Overview (09/11/2022): Zio (December 2018): 8.6% burden, 2 morphologies prevalent Zio (August 2020):??11.8% burden, 2 morphologies prevalent Status post ablation of atrial fibrillation 10/02 ASCVD (arteriosclerotic cardiovascular disease) 07/26/2018 Overview (07/26/2018): PCI in 2006 at [facility]: stents to LAD x2, LCx x2, ramus Atrial fibrillation 07/26/2018 Overview (02/11/2024): Diagnosed 2017, on rivaroxaban Dofetilide initiation, direct current cardioversion (July 2018) dofetilide dc'd for QT prolongation Map and ablate (October 2018) Acute electrical isolation of the right pulmonary vein antrum, and attempted acute electrical isolation of the remainder of the posterior left atrium (instead resulting in marked delay of activation within the leftward posterior left atrium). Acute electrical isolation of the entire region was not achieved (despite apparent conduction block along the perimeter of the posterior left atrium) due to apparent epicardial connections distributed within the posterior left atrium, some of which were along the posterior edge of the right lorna. The intended result was for acute electrical isolation of the entire posterior left atrium. : Inferior cavotricuspid isthmus dependent atrial flutter was the presenting rhythm; this was ablated, with bidirectional conduction block across the inferior cavotricuspid isthmus subsequently demonstrated. > Off amiodarone Hypertension 07/26/2018 HLD (hyperlipidemia) 07/26/2018 Chest pain 07/26/2018 Brain abscess 01/31/2015 Encounters Date Type Department Care Team Description 06/11/2024 Telephone Vascular Surgery at [facility] [place] [place] [address] SubhashMaribeth rivers from Last 3 Months Family History Medical History Relation Comments Alzheimer Disease Brother Relation Status Comments Brother Father Mother Social History Tobacco Use Types Packs/Day Years Used Date Smoking Tobacco: Never Smokeless Tobacco: Never Alcohol Use Standard Drinks/Week Comments Yes 14 (1 standard drink = 0.6 oz pu re alcohol) 2-3 drinks/night [facility] Inpatient Questions Answer Date Recorded [...] on file Sexual Orientation Not on file Last Filed Vital Signs Vital Sign Reading Time Taken Comments Blood Pressure 135/78 02/11/2024 10:40 AM EDT Pulse 98 02/11/2024 10:40 AM EDT per ecg Temperature 36.4 ??C (97.5 ??F) 07/17/2023 7:16 AM ED T Respiratory Rate 16 07/17/2023 7:16 AM EDT Oxygen Saturation 97% 07/17/2023 7:16 AM EDT Inhaled Oxygen Concentration - - Weight 93.4 kg (206 lb) 02/11/2024 10:40 AM EDT Height 185.4 cm (6' 1) 02/11/2024 10:40 AM EDT Body Mass Index 27.18 02/11/2024 10:40 AM EDT Plan of Treatment Upcoming Encounters Date Type Department Care Team (Late st Contact Info) Description 09/08/2024 9:40 AM EDT Office Visit Cardiology at [address] [place] [address] Gonzales Torres MD [facility] [place] [address] Health Maintenance Due Date Last Done Comments Hepatitis C Screening 1963 Tdap adult 1964 Tetanus vaccine 1964 Zoster vaccine (1 of 2) 1995 Pneumoccocal Vaccine: 65+ (1 of 1 - PCV) 2010 Covid-19 Vaccine (1 - 2022-24 season) 2023 Influenza (Flu) vaccine (1 o f 1 - Influenza standard series) 08/01/2024 Medical Devices Implanted Type Area Nutrition Services Assistant Device Identifier Shelf Expiration Date Model / Serial / Lot Graft Soft Tissue 0.8x8cm Square Bovine Xenosure ([id number]) (Autoreq) - [id number] Implanted:Qty : 1 on 07/16/2023 by Ramiro Chandra MD at [facility] IMPLANTS Left: Carotid [employer] - [employer] 02/25/2029 [id number] / 0000 / [id number] Advance Directives Documents on File Type Date Recorded Patient Retort Or Condenser Press Operator Expl anation Advance Directives and Livin g Will 01/28/2015 4:57 PM * Attempt Cardiopulmonary Resuscitation - Inpatient (Latest Code Status on File) Date Activated Date Inactivated Comments 07/16/2023 4:17 PM 07/17/2023 3:18 PM Question Answer Comments Code Status decision made by: Patient * Attempt Cardiopulmonary Resuscitation - Inpatient Date Activated Date Inactivated Comments 07/16/2023 11:48 AM 07/16/2023 4:17 PM Question Answer Comments Code Status decision made by: Patient * Attempt Cardiopulmonary Resuscitation - Inpatient Date Activated Date Inactivated Comments 05/20/2023 4:05 PM 05/21/2023 4:25 PM Question Answer Comments Code Status decision made by: Patient * Full Code Date Activated Date Inactivated Comments 10/20/2018 7:29 PM 10/21/2018 3:11 PM Question Answer Comments Does patient have capacity to make decision: Yes * Full Code Date Activated Date Inactivated Comments 10/20/2018 7:21 AM 10/20/2018 7:29 PM Question Answer Comments Does patient have capacity to make decision: Yes Care Teams Material Engineer Relationship Specialty Start Date End Date Camacho Barrera DO [address] [place] [address] PCP - General Family Medicine 07/01/18
--- OUTSIDE RECORDS SUMMARY | 2024-07-21 19:26 | XMS_ITS | Encounter Summary ---
Author Organization [facility] [place] [address] Care Team Providers Care Security Screener Name Role Phone Camacho Barrera DO Primary Care Provider [phone] Encounter Details Date Type Department Care Team (Latest Contact Info) Description 09/19/2023 Travel Social History Tobacco Use Types Packs/Day [...] 9:40 AM EDT Office Visit Cardiology at [address] [place] [address] Gonzales Torres MD [facility] [address] documented as of this encounter Visit Diagnoses Not on filedocumented in this encounter Care Teams Security Screener Relationship Specialty Start Date End Date Camacho Barrera DO [address] [place] [address] PCP - General Family Medicine 07/01/18 documented as of this encounter
--- OUTSIDE RECORDS SUMMARY | 2024-07-21 19:26 | XMS_ITS | Clinical Summary ---
Author Organization [facility] Address [address] [place] [address] Care Team Providers Care Commuter Train Operator Name Role Phone Camacho Irwin MD Primary Care Provider Unav ailable Allergies Active Allergy Reactions Criticality Noted Date Comments Other - See Comments 08/22/2011 Bee stings AND SHRIMP Penicillins 08/20/2011 Shellfish Containing Products 08/23/2011 Shrimp Medications Medication Sig Dispensed Refills Start Date End Date Status ISOSORBIDE ORAL Take 30 mg by mouth daily. 08/20/2011 Active simvastatin (ZOCOR) 20 mg tablet Take 20 mg by mouth at bedtime. Active lisinopril (PRINIVIL, ZESTRIL) 10 mg tablet Take 10 mg by mouth daily. Active aspirin chewable 81 mg tablet Take 1 Tab by mouth daily. Lifetime medication, do not stop 1 Tab 0 08/23/2011 Active clopidogrel (PLAVIX) 75 mg tablet Take 1 Tab by mouth daily. Take this medicine every day without interruption for 12 months, until 08/22/2012. Never stop or interrupt this medicine without discussing first with your workforce advisor. 90 Tab 3 08/23/2011 Active Encounters Date Type Department Care Team Description 07/10/2024 Lab Requisition [facility] Pathology & Laboratory Medicine - [facility] [address] [place] [address] Outr Resulting Lab, Provider from Last 3 Months Medical History Medical History Date Comments Abnormal cardiovascular stress test inferolateral, lateral ischemia HTN (hypertension) Hyperlipidemia Chest pain Social History Tobacco Use Types Packs/Day Years Used Date Smoking Tobacco: Former Alcohol Use Standard Drinks/Week Comments Yes 0 (1 standard drink = 0.6 oz pur e alcohol) occ Sex and Gender Information Value Date Recorded Sex Assigned at Not on file Gender Identity Not on file Sexual Orientation Not on file Obstetrics History Last Filed Vital Signs Vital Sign Reading [...] Body Mass Index 26.96 08/20/2011 1300 EDT Plan of Treatment Health Maintenance Due Date Last Done Comments Hepatitis C Screen 1945 RSV Immunization ( o r 60+ Years) (1 - 1-dose 60+ series) 2005 Fall Risk Screening 2010 COVID-19 Vaccine ( season) 2023 Procedures Procedure Name Priority Date/Time Associated Diagnosis Comments FECAL BACTERIAL PATHOGENS BY PCR Routine 07/09/2024 12:23 EDT from Last 3 Months Results * FECAL BACTERIAL PATHOGENS BY PCR (07/09/2024 12:23 EDT) Salmonella PCR Negative Negative 07/11/2024 22:53 EDT [facility] Shigella/Enteroin vasive E. coli Negative Negative 07/11/2024 22:53 EDT [facility] HN LAB CAMPYLOBACTER PCR Negative Negative 07/11/2024 22:53 EDT [facility] Shiga Toxin PCR Negative Negative 22:53 EDT [facility] Feces SPECIMEN FROM RECTUM / Unknown 07/09/2024 12:23 EDT 07/11/2024 17:15 EDT Provider Outr Resulting Lab MICROBIOLOGY - GENERAL ORDERABLES [facility] [address] [place] [address] from Last 3 Months Advance Directives For more information, please contact: [phone] Documents on File Type Date Recorded Patient Cap Machine Operator Expl anation Advance Directive 08/22/2011 8:48 * Full Code (Latest Code Status on File) Date Activated Date Inactivated Comments 08/22/2011 12:02 08/23/2011 13:03 Care Teams Commuter Train Operator Relationship Specialty Start Date End Date Camacho Irwin MD PCP - General 08/20/11
--- OUTSIDE RECORDS SUMMARY | 2024-07-21 19:26 | XMS_ITS | Encounter Summary ---
[place] [address] Care Team Providers Care Aerial Photograph Interpreter Name Role Phone Camacho Barrera DO Primary Care Provider [phone] Encounter Details Date Type Department Care Team (Late st Contact Info) Description 01/22/2024 Telephone Cardiology at [address] [place] [address] Lilian Reaves, RN Social History Tobacco Use Types Packs/Day Years [...] encounter Miscellaneous Notes * Telephone Encounter - Lilian Reaves, RN - 01/22/2024 2:33 PM EST Scheduled with Dr. Torres 02/10 in [facility]. * Telephone Encounter - Lilian Reaves, RN - 01/22/2024 2:33 PM EST ----- Message from Geraldine Joe sent at 01/20/2024 3:46 PM EST ----- ED, discharge and records scanned documented in this encounter Plan of Treatment Upcoming Encounters Date Type Department Care Team (Late st Contact Info) Description 09/08/2024 9:40 AM EDT Office Visit Cardiology at [address] [address] Gonzales Torres MD [facility] [place] [address] documented as of this encounter Visit Diagnoses Not on filedocumented in this encounter Care Teams Aerial Photograph Interpreter Relationship Specialty Start Date End Date Camacho Barrera DO [address] [place] [address] PCP - General Family Medicine 07/01/18 documented as of this encounter
--- OUTSIDE RECORDS SUMMARY | 2024-07-21 19:26 | XMS_ITS | Encounter Summary ---
Author Organization [facility] Address [address] [place] [address] Care Team Providers Care Aircraft Metalsmith Name Role Phone Camacho Irwin MD Primary Care Provider Unav ailable Encounter Details Date Type Department Care Team (Late st Contact Info) Description 05/04/2021 Lab Requisition [facility] Pathology & Laboratory Medicine - [facility] [address] [place] [address] Outr Resulting Lab, Provider Social History Tobacco Use Types Packs/Day Years Used Date Smoking Tobacco: Former Alcohol Use Standard Drinks/Week Comments Yes 0 (1 standard drink = 0.6 oz pur e alcohol) occ Sex and Gender Information Value Date Recorded Sex Assigned at Not on file Gender Identity Not on file Sexual Orientation Not on file documented as of this encounter Functional Status Cognitive Status Response Date of Assessm ent Because of a physical, menta l, or emotional condition, do you have serious difficulty concentrating, remembering, or making decisions? (5 years old or older) Yes 08/22/2011 documented as of this encounter Plan of Treatment Not on file documented as of this encounter Procedures Procedure Name Priority Date/Time Associated Diagnosis Comments ZZCOVID-19 TEST [facility] PCR Today 05/04/2021 9:45 EDT COVID-19 TESTING Routine 05/04/2021 9:45 EDT documented in this encounter Results * COVID-19 TEST [facility] PCR (05/04/2021 9:45 EDT) Swab ENTIRE NASOPHARYNX / Unknown 05/04/2021 9:45 EDT 05/04/2021 21:45 EDT Provider Outr Resulting Lab MICROBIOLOGY - GENERAL ORDERABLES Performing Organization Address City/[facility]/ZIP Co de Phone Number [facility] [address] [place] [address] * COVID-19 TESTING (05/04/2021 9:45 EDT) COVID-19 rt-PCR Result Negative Negative 05/05/2021 11:32 EDT [facility] Comment: This test has not been FDA cleared or approved. This test has been authorized by FDA under an EUA for use by authorized laboratories. This test has been authorized only for detection of nucleic acid from 2019-nCoV, not for any other viruses or pathogens. This test is only authorized for the duration of the declaration that circumstances exist justifying the authorization of emergency use of in vitro diagnostic tests for detection and/or diagnosis of 2019-nCoV under section 564(b)(1) of Act, 21 U.S.C ?? 360bbb-3(b) (1), unless the authorization is terminated or revoked sooner. Negative results do not preclude 2019-nCoV infection and should not be used as the sole basis for treatment or other patient management decisions. Negative results must be combined with clinical observations, patient history, and epidemiological information. Performed on the [email or web address] Fusion instrument Performing Lab [place] [facility] Lab 05/05/2021 11:32 EDT [facility] Swab 05/04/2021 9:45 EDT 05/04/2021 21:45 EDT Provider Outr Resulting Lab MICROBIOLOGY - GENERAL ORDERABLES [facility] [address] [place] [address] documented in this encounter Visit Diagnoses Not on filedocumented in this encounter Care Teams Aircraft Metalsmith Relationship Specialty Start Date End Date Camacho Irwin MD PCP - General 08/20/11 documented as of this encounter
--- OUTSIDE RECORDS SUMMARY | 2024-07-21 19:26 | XMS_ITS | Encounter Summary ---
[place] [address] Care Team Providers Care Wood Finisher Name Role Phone Camacho Barrera DO Primary Care Provider [phone] Reason for Referral * Diagnostic Test (Routine) - New Request Specialty Diagnoses / Procedures Referred By Mike johnson Referred To Contact Diagnoses Carotid stenosis, asymptomatic, bilateral Procedures Carotid Duplex, Bilateral Kaia Stahl PA [facility] [place] [address] [facility] [address] [address] Referral ID Status Reason Start Date Expiration Date Visits Requested Visits Authorized [id number] New Request Specialty Service Requested 12/11/2023 12/10/2024 1 1 Encounter Details Date Type Department Care Team (Late st Contact Info) Description 12/11/2023 2:30 PM EST Office Visit [place] [address] Kaia Stahl PA [facility] [place] [address] Carotid stenosis, asymptomatic, bilateral Social History Tobacco Use Types Packs/Day Years [...] Sign Reading Time Taken Comments Blood Pressure 146/101 12/11/2023 2:11 PM EST Pulse 82 12/11/2023 2:08 PM EST Temperature - - Respiratory Rate - - Oxygen Saturation - - Inhaled Oxygen Concentration - - Weight 97.1 kg (214 lb) 12/11/2023 2:08 PM EST Height 188 cm (6' 2) 12/11/2023 2:08 PM EST Body Mass Index 27.48 12/11/2023 2:08 PM EST documented in this encounter Progress Notes * Kaia Stahl PA - 12/11/2023 2:30 PM EST Vascular Follow-Up Reason for Visit: Camacho Flores is a 78 y.o. male presenting for Carotid Stenosis. HPI: 78 y.o. male with PMH: HTN, HLD, CVA, Afib, carotid stenosis, brain abscess. Pt last seen in clinic 09/19/[address] Chandra for him to follow up in 6 months with repeat duplex. As his critical right carotid stenosis had receded somewhat and was then deemed subcritical. Today, pt reports doing well overall, pt denies any signs or symptoms of CVA/TIA including: monocular vision loss, facial droop, garbled speech, unilateral numbness/weakness in extremity. Pt is compliant with daily medications including: Plavix and statin. 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 He is followingup with them in January. Prior vascular history: Left CEA 07/16/23 (Dr. Chandra) Atherosclerotic Risk Factors: (n) DM (y) HTN (y) CAD (y) Hyperlipidemia (n) Tobacco (y) CVA Problem List: Patient Active Problem List Diagnosis Code Brain abscess G06.0 ASCVD (arteriosclerotic cardiovascular disease) I25.10 Atrial fibrillation I48.91 Hypertension I10 HLD (hyperlipidemia) E78.5 Chest pain R07.9 Status post ablation of atrial fibrillation Z98.890, Z86.79 Premature ventricular beats I49.3 Acute ischemic stroke I63.9 Stroke I63.9 Left carotid artery stenosis I65.22 Medications: Current Outpatient Medications on File Prior to Visit Medication Sig Dispense Refill lisinopriL (Zestril) 5 mg tablet Take 5 mg by mouth daily. digoxin (Lanoxin) 125 mcg (0.125 mg) tablet Take 125 mcg by mouth daily. atorvastatin (Lipitor) 80 mg tablet Take 1 tablet by mouth every evening. 90 tablet 3 rivaroxaban (Xarelto) 20 mg tablet Take 1 tablet by mouth daily. 90 tablet 3 nitrofurantoin (Macrobid) 100 mg capsule Take 100 mg by mouth 2 times daily. For 7 days HYDROcodone-acetaminophen ([place]) 5-325 mg tablet Take by mouth every 6 hours as needed. acetaminophen (Tylenol) 500 mg tablet Take 1 tablet by mouth every 4 hours as needed for Pain (For Mild Pain (1-3) or Fever.). (Patient not taking: Reported on 09/09/2023) 30 tablet 1 clopidogreL (Plavix) 75 mg tablet Take 1 tablet by mouth daily. (Patient not taking: Reported on 12/11/2023) 90 tablet 3 clotrimazole (LOTRIMIN) 1 % Cream Apply topically as needed. OneToElias Borges Urzeda Verio test strips Strip USE TO CHECK BLOOD GLUCOSE DAILY DIRECTED aspirin 81 mg chewable tablet Take 81 mg by mouth daily. (Patient not taking: Reported on 09/09/2023) 30 tablet 3 timoloL (Timoptic) 0.5 % Drops Place 1 drop into the left eye 2 times daily. nitroGLYcerin (NITROSTAT) 0.4 mg Tablet, Sublingual Place 1 tablet under the tongue every 5 minutesas needed for Chest pain. (Patient not taking: Reported on 09/19/2023) 90 tablet 12 No current facility-administered medications on file prior to visit. Allergies: Allergies Allergen Reactions Bee Pollen Anaphylaxis Bee Stings Use to carry Epi Pen, Penicillins Angioedema States as a child, had facial, lip swelling. Shellfish Containing Products Nausea And Vomiting SHRIMP only. Blotches, swelling, Shrimp Ceftriaxone Other (See Comments) leukopenia Keppra [Levetiracetam] Other (See Comments) leukopenia Simvastatin Other (See Comments) Myalgia ROS 10 point review of symptoms negative except those noted in HPI. Physical Exam: BP (!) 146/101 (BP Location (NBP): Left arm, Patient Position: Sitting, BP Cuff Sizes: Adult (25-34cm)) Pulse 82 Ht 188 cm (6' 2) Wt 97.1 kg (214 lb) BMI 27.48 kg/m?? Physical Exam GEN: Alert, appeared stated age in no acute distress SKIN: Warm, pink and dry. Extremities: Bilateral UE and LE warm and pink. No edema. No wounds. HEENT: Normocephalic and atraumatic CV: Regular rate and rhythm. S1 and S2 present on auscultation PULM: Lung sounds clear to auscultation bilaterally NEURO: No gross sensory or motor deficits. Vascular Exam: R L Carotid Bruit No No Radial 2/2 2/2 Labs: No results found for this or any previous visit (from the past 24 hour(s)). Vascular Studies Carotid Duplex Findings: 12/11/2023 ICA Proximal, Right PSV (cm/s): 355 EDV (cm/s): 89 ICA/CCA: 8.5 Plaque Structure: Mixed Echogenic Plaque Surface: Irregular %Stenosis: 70-99% ICA Distal, Right PSV (cm/s): 72 EDV (cm/s): 22 ICA/CCA: 1.7 CCA Distal, Right PSV (cm/s): 42 EDV (cm/s): 12 CCA Middle, Right %Stenosis: Minimal CCA Proximal, Right PSV (cm/s): 48 EDV (cm/s): 14 External Carotid Artery, Right PSV (cm/s): 91 EDV (cm/s): 7 %Stenosis: <50% Vertebral, Right PSV (cm/s): 26 EDV (cm/s): 0 Direction of Flow: Resistive Antegrade ICA Proximal, Left PSV (cm/s): 41 EDV (cm/s): 17 ICA/CCA: 1.0 Plaque Structure: Echogenic Plaque Surface: Irregular %Stenosis: <15% ICA Distal, Left PSV (cm/s): 68 EDV (cm/s): 29 ICA/CCA: 1.6 CCA Distal, Left PSV (cm/s): 42 EDV (cm/s): 13 %Stenosis: <50% CCA Proximal, Left PSV (cm/s): 47 EDV (cm/s): 15 External Carotid Artery, Left PSV (cm/s): 262 EDV (cm/s): 41 %Stenosis: >50% Vertebral, Left PSV (cm/s): 37 EDV (cm/s): 16 Direction of Flow: Antegrade Interpretation: RIGHT: There is smooth plaque in the common carotid artery causing <50% stenosis by B-mode. There is bulky irregular plaque in the proximal internal carotid artery causing 70-99% stenosis when compared to the more distal internal carotid artery. The bifurcation level is in the mid neck. No significant change in PSV compared to previous exam, but ratio did increase. LEFT: There is irregular plaque in the common carotid artery causing <50% stenosis by B-mode. There is smooth plaque in the proximal internal carotid artery causing <15% stenosis when compared to the more distal internal carotid artery. The bifurcation level is in the mid neck. There is a mobile hyperechoic structure visualized within the proximal external carotid artery with elevated velocities which may demonstrate an intimal flap. When compared to the previous exam on 08/15/2021 the ICA stenosis is unchanged. New finding of elevated velocities in the ECA. No significant change compared to previous exam. Vertebral Artery Data: Patent right vertebral artery with resistant waveforms suggesting more distal obstruction/occlusion. Patent left vertebral artery with normal antegrade Doppler waveforms and velocities. No significant change compared to previous exam. Previous Carotid Studies: Date RIGHT ICA Stenosis PSV Ratio LEFT ICA Stenosis PSV Ratio 80-99% 571 8.20 16-49% 177 2.40 n/a n/a n/a <15% 73 2.90 n/a n/a n/a <15% 166 3.00 70-79% 346 7.20 <15% 95 1.70 Current Exam 70-99% 355 8.50 <15% 41 1.60 0 Assessment and Plan: Camacho Flores 78 y.o. male with PMH: Pt with carotid artery stenosis on duplex today: R ICA 70-99% stenosis with change in category previously 70-79% with PSV today 355 previously 346. L ICA <15%. Patient remains asymptomatic. Will reach out to Dr. Chandra about plan. Recommend continued medical management at this time. Continue Plavix and statin. Recommend tight control of co-morbidities and continued abstinence from smoking. Current plan Follow-up in the clinic in 6 months with repeat carotid duplex. Instructed to call the clinic with any concerns prior to next appointment. Instructed to call 911 for any s/sx of TIA/CVA including unilateral extremity weakness, facial droop, acute change in vision or speech. Addendum: Case discussed with Dr. Chandra. He is to review studies and telephone pt. Future Appointments Date Time Provider Department Center 02/11/2024 10:20 AM Gonzales Torres MD [facility] Kaia Stahl PA-C Department of Vascular Surgery documented in this encounter Plan of Treatment Upcoming Encounters Date Type Department Care Team (Late st Contact Info) Description 09/08/2024 9:40 AM EDT Office Visit Cardiology at [address] [phone] Gonzales Torres MD [facility] [place] [address] documented as of this encounter Visit Diagnoses Diagnosis Carotid stenosis, asymptomatic, bilateral documented in this encounter Care Teams Wood Finisher Relationship Specialty Start Date End Date Camacho Barrera DO [address] [place] [address] PCP - General Family Medicine 07/01/18 documented as of this encounter
--- OUTSIDE RECORDS SUMMARY | 2024-07-21 19:26 | XMS_ITS | Encounter Summary ---
Author Organization [facility] [place] [address] Care Team Providers Care Digital Sales Assistant Name Role Phone Camacho Barrera DO Primary Care Provider [phone] Encounter Details Date Type Department Care Team (Latest Contact Info) Description 12/11/2023 Travel Social History Tobacco Use Types Packs/Day [...] 9:40 AM EDT Office Visit Cardiology at [address] [place] [address] Gonzales Torres MD [facility] [address] documented as of this encounter Visit Diagnoses Not on filedocumented in this encounter Care Teams Digital Sales Assistant Relationship Specialty Start Date End Date Camacho Barrera DO [address] [place] [address] PCP - General Family Medicine 07/01/18 documented as of this encounter
--- OUTSIDE RECORDS SUMMARY | 2024-07-21 19:26 | XMS_ITS | Encounter Summary ---
Author Organization [facility] Address [address] [place] [address] Care Team Providers Care Document Preparer Microfilming Name Role Phone Unavailable Primary Care Provider Unavailabl e Encounter Details Date Type Department Care Team (Late st Contact Info) Description 07/14/2003 Results Only [facility] [address] [place] [address] Stiven Grewal MD [address] [place] [address] Social History Tobacco Use Types Packs/Day Years Used Date Smoking Tobacco: Never Assessed Sex and Gender Information Value Date Recorded Sex Assigned at Not on file Gender Identity Not on file Sexual Orientation Not on file documented as of this encounter Plan of Treatment Not on file documented as of this encounter Procedures Procedure Name Priority Date/Time Associated Diagnosis Comments SURGICAL PATHOLOGY Routine 07/14/2003 0:00 EDT documented in this encounter Results * SURGICAL PATHOLOGY (07/14/2003 0:00 EDT) Pathology Report: SURGICAL PATHOLOGY REPORT Reports generated via electronic interface contain original data; however they are lacking the format of the original report. Caution should be taken when reading/interpreti ng unformatted reports. Name: ? MILTONCAMACHO Zaki ? Accession #: ? [id number] ? : ? 1945 (Age: 57) ??M ? Collect Date: ? 07/14/2003 ? Location: ? [facility] ? Receive Date: ? 07/15/2003 ? Provider: STIVEN GREWAL MD Copy to: CAMACHO OROSCO MD ? Final Pathologic Diagnosis: ? Esophagus, 40 cm, biopsy: 1. ?Squamous epithelium with eosinophil infiltrate consistent with reflux esophagitis. 2. ?Gastric cardiac and fundic mucosa with focally active mild chronic gastritis. 3. ?No Helicobacter pylori-like microorganisms identified on H&E stain. 4. ?No goblet cell intestinal metaplasia identified. Document reviewed and electronically signed by: KANE GHOTRA MD Report ??Date: 07/18/2003 17:50 By the signature above, the attending physician certifies that he/she has personally conducted a gross and/or microscopic examination of the described specimens and rendered or confirmed the above diagnosis. Specimen(s) Received: ? Bx esophagus at 40 cm Clinical History: ? Dysphagia Gross Description: ? Received in Hollande's fixative labeled [place] and bx esophagus are three del rosario-pink friable soft tissue fragments ranging from 0.2 x 0.2 x 0.1 cm to 0.3 x 0.2 x 0.2 cm. ??The specimen is entirely submitted in one cassette. ??(Cindy Asher)/[facility] End of Report MARCIN KUMAR 07/14/2003 07/15/2003 15: 26 EDT Stiven Grewal MD PATHOLOGY ORDERABLE S MARCIN KUMAR [address] [place] [address] documented in this encounter Visit Diagnoses Not on filedocumented in this encounter
--- OUTSIDE RECORDS SUMMARY | 2024-07-21 19:26 | XMS_ITS | Encounter Summary ---
[place] [address] Care Team Providers Care Loin Puller Name Role Phone Camacho Barrera DO Primary Care Provider [phone] Encounter Details Date Type Department Care Team (Late st Contact Info) Description 12/11/2023 1:30 PM EST Tech Visit [place] [address] Jimbo Bejarano [place] Carotid stenosis, asymptomatic, bilateral Social History Tobacco [...] 9:40 AM EDT Office Visit Cardiology at [address] [place] [phone] Gonzales Torres MD [facility] [place] [address] documented as of this encounter Procedures Procedure Name Priority Date/Time Associated Diagnosis Comments CAROTID DUPLEX, BILATERAL Routine 12/11/2023 1:18 PM EST Carotid stenosis, asymptomatic, bilateral documented in this encounter Results * Carotid Duplex, Bilateral (12/11/2023 1:18 PM EST) VB Text Report Department: Vascular Surgery Lab Patient: [id number] (CAMACHO FLORES) CPT: 00197 Referring Physician: DEANDRA TEJADA ?? Indications: f/u L CEA and R ICA stenosis. Findings: ICA Proximal, Right ? PSV (cm/s): 355 ? EDV (cm/s): 89 ? ICA/CCA: 8.5 ? Plaque Structure: Mixed Echogenic ? Plaque Surface: Irregular ? %Stenosis: 70-99% ICA Distal, Right ? PSV (cm/s): 72 ? EDV (cm/s): 22 ? ICA/CCA: 1.7 CCA Distal, Right ? PSV (cm/s): 42 ? EDV (cm/s): 12 CCA Middle, Right ? %Stenosis: Minimal CCA Proximal, Right ? PSV (cm/s): 48 ? EDV (cm/s): 14 External Carotid Artery, Right ? PSV (cm/s): 91 ? EDV (cm/s): 7 ? %Stenosis: <50% Vertebral, Right ? PSV (cm/s): 26 ? EDV (cm/s): 0 ? Direction of Flow: Resistive Antegrade ICA Proximal, Left ? PSV (cm/s): 41 ? EDV (cm/s): 17 ? ICA/CCA: 1.0 ? Plaque Structure: Echogenic ? Plaque Surface: Irregular ? %Stenosis: <15% ICA Distal, Left ? PSV (cm/s): 68 ? EDV (cm/s): 29 ? ICA/CCA: 1.6 CCA Distal, Left ? PSV (cm/s): 42 ? EDV (cm/s): 13 ? %Stenosis: <50% CCA Proximal, Left ? PSV (cm/s): 47 ? EDV (cm/s): 15 External Carotid Artery, Left ? PSV (cm/s): 262 ? EDV (cm/s): 41 ? %Stenosis: >50% Vertebral, Left ? PSV (cm/s): 37 ? EDV (cm/s): 16 ? Direction of Flow: Antegrade Interpretation: RIGHT: There [...] artery with resistant waveforms suggesting more distal obstruction/occ lusion. Patent left vertebral artery with normal antegrade Doppler waveforms and velocities. No significant change compared to previous exam. Previous Carotid Studies: Date ?RIGHT ICA Stenosis ??PSV ?? Ratio ?? LEFT ICA Stenosis ?? PSV ?? Ratio ? 80-99% ? 571 ?? 8.20 ? 16-49% ? 177 ?? 2.40 ? n/a ?n/a ?? n/a ?<15% ? 73 ?2.90 ? n/a ?n/a ?? n/a ?<15% ? 166 ?? 3.00 ? 70-79% ? 346 ?? 7.20 ? <15% ? 95 ?1.70 Current Exam ? 70-99% ? 355 ?? 8.50 ? <15% ? 41 ?1.60 Electronically Signed by: DENICE SUNSHINE on 2023-12-12 11:28:03 AM [facility] VB Text Report End of Report [facility] 12/11/2023 1:18 PM EST Deandra Tejada APRN VASCULAR ORDERABLE S [facility] documented in this encounter Visit Diagnoses Diagnosis Carotid stenosis, asymptomatic, bilateral documented in this encounter Care Teams Loin Puller Relationship Specialty Start Date End Date Camacho Barrera DO [address] [place] [address] PCP - General Family Medicine 07/01/18 documented as of this encounter
--- OUTSIDE RECORDS SUMMARY | 2024-07-21 19:26 | XMS_ITS | Encounter Summary ---
Author Organization [facility] Address [address] [place] [address] Care Team Providers Care Epoxy Specialist Name Role Phone Camacho Irwin MD Primary Care Provider Unav ailable Encounter Details Date Type Department Care Team (Late st Contact Info) Description 08/20/2011 Results Only Imaging [facility] [phone] Jamie Rao MD [address] [place] [id number] Social History Tobacco Use Types Packs/Day Years [...] Procedure Name Priority Date/Time Associated Diagnosis Comments LEFT HEART CATH 08/22/2011 10:42 EDT documented in this encounter Results * LEFT HEART CATH (08/22/2011 10:42 EDT) Anatomical Region Laterality Modality Other 08/22/2011 10:4 2 EDT Impressions 08/28/2011 9:16 EDT ?[facility] ? [address] ??[place], [place] [address] ? [phone] ? [email or web address] ?Final Interventional Cardiovascular Catheterization Report ?--- SUMMARY OF RESULTS --- > The patient has significant (>70%) lesions in ??3 coronary vessel(s). > The culprit artery was unknow in this multi-vessel setting. Prior to PCI there was 100% stenosis in the LCX, ??90% stenosis of the Ramus and 90% stenosis of the distal LAD. > Following PCI as described in the procedure section, there was 0% residual stenoses and normal flow in the Lcx, Ramus and the distal LAD. > ??We accomplished complete revascularization. ??There are severe stenoses remaining in 0 coronary vessels or grafts. > Interventional cardiac catheterization was performed without any significant complications. ? --- PLAN --- >Aspirin is recommended indefinitely and should not be stopped without consultation with a collection analyst. Clopidogrel (plavix) is recommended for a minimum of 12 months after the drug eluting stent procedure. ? --- PATIENT PRESENTATION --- The patient is a 65 year old male. ??The primary indication for PCI was Stable Angina. Additional indications include: angina, chest pain, Positive Nuclear Stress Test, positive stress test, Stable angina. The patient has the following Comorbidities/Risk Factors: ??Dyslipidemia, Hypertension. : 1945 ?Sex: male ?Height: 188cm ?Weight: 95.2kg ?BSA: 2.22 Allergies: ??Additional Allergies Pre-Gunite Nozzle Operator Values: ??HCT: 42.8 ?Platelets: 204.0 ?Creatinine:.8 ? --- PROCEDURE --- CARDIAC ANATOMY AND FUNCTION Natives with > 70% stenosis: Circumflex, Mid-Distal LAD, Ramus Dominance: ??Right LM Stenosis: 0% INTERVENTIONAL CARDIAC PROCEDURE PCI is indicated for this significant ACC/AHA class C lesion in the ??distal Circumflex vessel, ACC/AHA class A lesion in the proximal Ramus and ACC/AHA class A lesion in the distal LAD. A 6F XB 3.5 ??guide catheter was chosen for the intervention . ??This catheter gave good engagement in the ostium of the LM . The lesion in the distal LCX was crossed successfully with an 0.014 inch Terumo Runthrough wire. The lesion in the distal LCX was then predilated with an [place] OTW 2.0 x 12 mm Balloon at maximum inflation pressure of 8 jessica. We then successfully deployed a Xience 2.25 x 23 mm stent to the distal Left CX at maximum inflation pressure of 8 jessica. Another Xience 3.5 x 18 mm stent was successfully deployed to the distal LCX. Our attention was then turned to the Ramus. The lesion in the proximal Ramus was crossed successfully with an 0.014 inch Terumo Runthrough wire. The lesion in the proximal Ramus was then predilated with an [place] OTW 2.0 x 12 mm Balloon at maximum inflation pressure of 18 jessica. The lesion in the proximal Ramus was successfully stented with an [place] SPIRINT 2.5 x 24 mm stent at maximum inflation pressure of 12 jessica. Our attention was then turned to the LAD. The lesion in the distal LAD was crossed successfully with an 0.014 inch Terumo Runthrough wire. The lesion in the distal LAD was then predilated with a Trek 2.25 x 15 mm Balloon at maximum inflation pressure of 8 jessica. The lesion in the distal LAD was successfully stented with a Xience 2.25 x 18 mm stent at maximum inflation pressure of 12 jessica. Another Xience 2.25 x 8 mm stent was deployed to the distal LAD in an overlapping fashion at maximum inflation pressure of 8 jesscia. The stent overlap was then postdilated with a 2.25 x 8 mm stent balloon at maximum inflation presure of 17 jessica. The right common femoral artery was normal in size and had no significant angiographic lesions. The femoral artery sheath was placed within the common femoral artery. The Largest Arterial Sheath/Cath placed was ??6F The Hemostasis method used was: ? Angio-Seal VIP Fluoro Time (min): 20.4 ?? The NCDR Recommends a Warning if FT > 30 minutes SELECTED MEDICATION ADMINISTERED DURING THE PROCEDURE: ??FENTANYL, VERSED ? (Please see PhysioLog report for complete list of medications used.) Referring Physician: SHANI HOOD,JAMIE Gillespie Interventional Attending: Reji Sue MD Assisting 1: Matty Lorenz MD As the attending, supervising physician, I was present for the entire procedure. Signature date/time: 09/06/2011 3:56:15 PM ? Narrative 08/28/2011 9:16 EDT ?[facility] ? [address] ??[place] [address] ? [phone] ? [email or web address] ?Final Diagnostic Cardiovascular Catheterization Report ?--- SUMMARY OF RESULTS --- > Diagnostic cardiac catheterization was performed without any significant complications. > The patient has significant (>70%) lesions in ??3 coronary vessel(s). > The LV end diastolic pressure was normal. ? --- PLAN --- > After careful review of the diagnostic images and findings, PCI is indicated electively based upon the indications, risk factors and anatomy described above. ? --- PATIENT PRESENTATION --- The patient is a 65 year old male with the following indications: ??angina, chest pain, Positive Nuclear Stress Test, positive stress test, Stable angina . The patient has the following Comorbidities/Risk Factors: ??Dyslipidemia, Hypertension. : 1945 ?Sex: male ?Height: 188cm ?Weight: 95.2kg ?BSA: 2.22 Allergies: ??Additional Allergies Pre-Gunite Nozzle Operator Values: ??HCT: 42.8 ?Platelets: 204.0 ?Creatinine:.8 ? --- PROCEDURE --- DIAGNOSTIC CARDIAC PROCEDURE Under local anesthesia, the right femoral artery was accessed with a 6F sheath using modified Seldinger technique. Left heart cath was performed according to standard procedure. ??A 6F Pigtail was used to cross the aortic valve and measure pressures in the left ventricle. Using standard procedures, left ventriculography was performed. A 6F Pigtail was used to cross the aortic valve and measure pressures in the left ventricle. ??An injection of Isovue contrast was used for left ventriculography in the 30 degree COLEMAN projection. A 6F FL4 catheter was introduced and positioned in the ascending aorta. Selective coronary arteriography was then performed using a 6F FL4 catheter to engage the left coronary artery and a 6F AR Mod catheter to engage the right coronary artery. ??Right and left coronary arteriography were performed in multiple views. The Largest Arterial Sheath/Cath placed was ??6F The Hemostasis method used was: ? Angio-Seal VIP Fluoro Time (min): 20.4 ?? The NCDR Recommends a Warning if FT > 30 minutes SELECTED MEDICATION ADMINISTERED DURING THE PROCEDURE: ??FENTANYL, VERSED ? (Please see PhysioLog report for complete list of medications used.) ?--- RESULTS --- HEMODYNAMICS ??Pressures: ?Site ?Systolic ??Diasto ??Mean ?lic ?LV ?118 ? 12 ?LV ?118 ? 15 ?Ao ?114 ? 54 ?81 ?Ao ?105 ? 60 ?79 The left ventricular end diastolic pressure was normal. There was no gradient detected across the aortic valve. LEFT VENTRICULOGRAPHY Ventriculography was not performed during the procedure. FEMORAL ANGIOGRAPHIC FINDINGS The right common femoral artery was normal in size and had no significant angiographic lesions. The femoral artery sheath was placed within the common femoral artery. CORONARY ANGIOGRAPHIC FINDINGS Left Main Artery: The Left Main is normal in size and has no significant angiographic lesions. Left Anterior Descending Artery: The Proximal LAD is normal in size and has no significant angiographic lesions. ??The Distal LAD has a 90% stenosis. Circumflex Artery: The distal left circumflex has a 100% stenosis. Ramus Intermedius Artery: The proximal Ramus has a 90% stenosis. Right Coronary Artery: The RCA is normal in size and has no significant angiographic lesions. Referring Physician: JAMIE RAO MD Diagnostic Attending: Reji Sue MD Diagnostic Assisting 1: Gerda HOOD, Matty Diagnostic Assisting 2: Juaquin Ramirez MD As the attending, supervising physician, I was present for the entire procedure. Signature date/time: 08/28/2011 9:16:39 AM Procedure Note Reji Sue MD - 09/06/2011 [facility] [address] [place] [id number] [phone] [email or web address] Final Diagnostic Cardiovascular Catheterization Report --- SUMMARY OF RESULTS --- > Diagnostic cardiac catheterization was performed without anysignificant complications. > The patient has significant (>70%) lesions in 3 coronary vessel(s). > The LV end diastolic pressure was normal. --- PLAN --- > After careful review of the diagnostic images and findings, PCI isindicated electively based upon the indications, risk factors and anatomydescribed above. --- PATIENT PRESENTATION --- The patient is a 65 year old male with the following indications:angina, chest pain, Positive Nuclear Stress Test, positive stress test, Stableangina . The patient has the following Comorbidities/Risk Factors: Dyslipidemia, Hypertension. : 1945 Sex: male Height: 188cm Weight: 95.2kg BSA:2.22 Allergies: Additional Allergies Pre-Gunite Nozzle Operator Values: HCT: 42.8 Platelets: 204.0 Creatinine:.8 --- PROCEDURE --- DIAGNOSTIC CARDIAC PROCEDURE Under local anesthesia, the right femoral artery was accessed with a 6Fsheath using modified Seldinger technique. Left heart cath was performed according to standard procedure. A 6FPigtail was used to cross the aortic valve and measure pressures in the left ventricle. Using standard procedures, left ventriculography was performed.A 6F Pigtail was used to cross the aortic valve and measure pressures inthe left ventricle. An injection of Isovue contrast was used for left ventriculography in the 30 degree COLEMAN projection. A 6F FL4 catheter was introduced and positioned in the ascending aorta. Selective coronary arteriography was then performed using a 6F NH9emqicqtm to engage the left coronary artery and a 6F AR Mod catheter to engage theright coronary artery. Right and left coronary arteriography were performedin multiple views. The Largest Arterial Sheath/Cath placed was 6F The Hemostasis method used was: Angio-Seal VIP Fluoro Time (min): 20.4 The NCDR Recommends a Warning if FT > 30minutes SELECTED MEDICATION ADMINISTERED DURING THE PROCEDURE: FENTANYL, VERSED (Please see PhysioLog report for complete list of medicationsused.) --- RESULTS --- HEMODYNAMICS Pressures: Site Systolic Diasto Mean lic LV 118 12 LV 118 15 Ao 114 54 81 Ao 105 60 79 The left ventricular end diastolic pressure was normal. There was no gradient detected across the aortic valve. LEFT VENTRICULOGRAPHY Ventriculography was not performed during the procedure. FEMORAL ANGIOGRAPHIC FINDINGS The right common femoral artery was normal in size and had nosignificant angiographic lesions. The femoral artery sheath was placed within the common femoral artery. CORONARY ANGIOGRAPHIC FINDINGS Left Main Artery: The Left Main is normal in size and has no significant angiographic lesions. Left Anterior Descending Artery: The Proximal LAD is normal in size andhas no significant angiographic lesions. The Distal LAD has a 90% stenosis. Circumflex Artery: The distal left circumflex has a 100% stenosis. Ramus Intermedius Artery: The proximal Ramus has a 90% stenosis. Right Coronary Artery: The RCA is normal in size and has no significant angiographic lesions. Referring Physician: JAMIE RAO MD Diagnostic Attending: Reji Sue MD Diagnostic Assisting 1: Gerda HOOD, Matty Diagnostic Assisting 2: Juaquin Ramirez MD As the attending, supervising physician, I was present for the entire procedure. Signature date/time: 08/28/2011 9:16:39 AM IMPRESSION [facility] [address] [place] [address] [phone] [email or web address] Final Interventional Cardiovascular Catheterization Report --- SUMMARY OF RESULTS --- > The patient has significant (>70%) lesions in 3 coronary vessel(s). > The culprit artery was unknow in this multi-vessel setting. Prior toPCI there was 100% stenosis in the LCX, 90% stenosis of the Ramus and 90% stenosis of the distal LAD. > Following PCI as described in the procedure section, there was 0%residual stenoses and normal flow in the Lcx, Ramus and the distal LAD. > We accomplished complete revascularization. There are severestenoses remaining in 0 coronary vessels or grafts. > Interventional cardiac catheterization was performed without anysignificant complications. --- PLAN --- >Aspirin is recommended indefinitely and should not be stopped without consultation with a collection analyst. Clopidogrel (plavix) is recommended fora minimum of 12 months after the drug eluting stent procedure. --- PATIENT PRESENTATION --- The patient is a 65 year old male. The primary indication for PCI wasStable Angina. Additional indications include: angina, chest pain, PositiveNuclear Stress Test, positive stress test, Stable angina. The patient has the following Comorbidities/Risk Factors: Dyslipidemia, Hypertension. : 1945 Sex: male Height: 188cm Weight: 95.2kg BSA:2.22 Allergies: Additional Allergies Pre-Gunite Nozzle Operator Values: HCT: 42.8 Platelets: 204.0 Creatinine:.8 --- PROCEDURE --- CARDIAC ANATOMY AND FUNCTION Natives with > 70% stenosis: Circumflex, Mid-Distal LAD, Ramus Dominance: Right LM Stenosis: 0% INTERVENTIONAL CARDIAC PROCEDURE PCI is indicated for this significant ACC/AHA class C lesion in thedistal Circumflex vessel, ACC/AHA class A lesion in the proximal Ramus andACC/AHA class A lesion in the distal LAD. A 6F XB 3.5 guide catheter was chosen for the intervention . Thiscatheter gave good engagement in the ostium of the LM . The lesion in the distal LCX was crossed successfully with an 0.014 inch Terumo Runthrough wire. The lesion in the distal LCX was then predilated with an [place] OTW 2.0 x 12mm Balloon at maximum inflation pressure of 8 jessica. We then successfully deployed a Xience 2.25 x 23 mm stent to the distalLeft CX at maximum inflation pressure of 8 jessica. Another Xience 3.5 x 18 mmstent was successfully deployed to the distal LCX. Our attention was then turned to the Ramus. The lesion in the proximal Ramus was crossed successfully with an 0.014inch Terumo Runthrough wire. The lesion in the proximal Ramus was then predilated with an [place] OTW 2.0x 12 mm Balloon at maximum inflation pressure of 18 jessica. The lesion in theproximal Ramus was successfully stented with an [place] SPIRINT 2.5 x 24 mm stentat maximum inflation pressure of 12 jessica. Our attention was then turned to the LAD. The lesion in the distal LAD was crossed successfully with an 0.014 inch Terumo Runthrough wire. The lesion in the distal LAD was then predilated with a Trek 2.25 x 15mm Balloon at maximum inflation pressure of 8 jessica. The lesion in the distalLAD was successfully stented with a Xience 2.25 x 18 mm stent at maximuminflation pressure of 12 jessica. Another Xience 2.25 x 8 mm stent was deployed to the distal LAD in an overlapping fashion at maximum inflation pressure of 8 jessica. The stentoverlap was then postdilated with a 2.25 x 8 mm stent balloon at maximuminflation presure of 17 jessica. The right common femoral artery was normal in size and had nosignificant angiographic lesions. The femoral artery sheath was placed within the common femoral artery. The Largest Arterial Sheath/Cath placed was 6F The Hemostasis method used was: Angio-Seal VIP Fluoro Time (min): 20.4 The NCDR Recommends a Warning if FT > 30minutes SELECTED MEDICATION ADMINISTERED DURING THE PROCEDURE: FENTANYL, VERSED (Please see PhysioLog report for complete list of medicationsused.) Referring Physician: SHANI HOOD,JAMIE Gillespie Interventional Attending: Reji Sue MD Assisting 1: Matty Lorenz MD As the attending, supervising physician, I was present for the entire procedure. Signature date/time: 09/06/2011 3:56:15 PM Jamie Rao MD CARDIAC CATH ORDERAB LES documented in this encounter Visit Diagnoses Not on filedocumented in this encounter Care Teams Epoxy Specialist Relationship Specialty Start Date End Date Camacho Irwin MD PCP - General 08/20/11 documented as of this encounter
--- OUTSIDE RECORDS SUMMARY | 2024-07-21 19:26 | XMS_ITS | Encounter Summary ---
Author Organization [facility] [place] [address] Care Team Providers Care Sueding And Buffing Machine Operator Name Role Phone Camacho Barrera DO Primary Care Provider [phone] Reason for Visit * Reason Comments Atrial Fibrillation Congestive Heart Failure Encounter Details Date Type Department Care Team (Late st Contact Info) Description 02/11/2024 10:20 AM EDT Office Visit Cardiology at [address] [place] [address] Gonzales Torres MD [facility] [place] [address] Persistent atrial fibrillation Social History Tobacco Use Types Packs/Day Years [...] 02/11/2024 10:40 AM EDT per ecg Temperature - - Respiratory Rate - - Oxygen Saturation - - Inhaled Oxygen Concentration - - Weight 93.4 kg (206 lb) 02/11/2024 10:40 AM EDT Height 185.4 cm (6' 1) 02/11/2024 10:40 AM EDT Body Mass Index 27.18 02/11/2024 10:40 AM EDT documented in this encounter Progress Notes * Gonzales Torres MD - 02/11/2024 10:20 AM EDT Images from the original note were not included. Clinical Cardiac Electrophysiology Consult Patient ID Camacho Flores [id number] Camacho Flores is following up in the EP clinic, he is a former patient of Dr Nelson Chief Complaint Paroxysmal atrial fibrillation s/p ablation for AF in 2018. History This is a 78 y.o. male following up/being seen in clinic for paroxysmal atrial fibrillation. He hasa history of atrial fibrillation ablation in October of 2018, when an incomplete posterior wall isolation was performed together with cavotricuspid isthmus ablation. He had also had a syncopal episode in May, which was attributed to vagal syncope. From his last clinic note from Dr Nelson in July of this year '...Mr. Flores did reasonably well subsequent to his ablation procedure in 2018, at least up until late spring, as described above. It appears that he has been in rapidly atrial tachycardia/flutter +/- fibrillation since March or May. His electrocardiogram today reveals an atrial tachycardia/flutter with variable conduction at a man rate of 109/minute. The possible reasons for this were discussed with him, including the possible role of the connectedposterior left atrial wall (unsuccessfully targeted for electrical isolation in 2018) or perhaps conduction into one of more of the pulmonary veins (acutely isolated in 2018), or otherwise due to some other macroreentrant perivalvular circuit. He is inteersted in having this mapped and ablated, given that it has impacted his exertional tolerance and stamina...' Echo: 05/2023 - LVEF 65%, mitral valve serverely calcified Echo: 01/2024 - LVEF 55-60%, no wall motion abnormalities, mild MR He was doing reasonably well at the time of his last visit. In January of this year he ended up in the ED at [facility] with atrial fibrillation with rapid ventricular rates. He was diuresed and rate controlled with an increased dose of diltiazem. He has previously had issues with dofetilide (QT prolongation); metoprolol (fatigue); amiodarone (fatigue) He feels well - legs are a little 'weak'; he is minimally active, walks around the yard, goes to the chicken coop. No lightheadedness, dizziness or syncope. No chest pain. Mild edema. Stopped Xarelto - about a month to two months ago - nasal epistaxis. Problem List Patient Active Problem List Diagnosis Left carotid artery stenosis Acute ischemic stroke Stroke Premature ventricular beats Zio (December 2018): 8.6% burden, 2 morphologies prevalent Zio (August 2020): 11.8% burden, 2 morphologies prevalent Status post ablation of atrial fibrillation ASCVD (arteriosclerotic cardiovascular disease) PCI in 2005 at [facility]: stents to LAD x2, LCx x2, ramus Atrial fibrillation Diagnosed 2017, on rivaroxaban Dofetilide initiation, direct [...] perimeter of the posterior left atrium) due toapparent epicardial connections distributed within the posterior left atrium, some of which were along the posterior edge of the right lorna. The intended result was for acute electrical isolation of the entire posterior left atrium. : Inferior cavotricuspid isthmus dependent atrial flutter was the presenting rhythm; this was ablated, with bidirectional conduction block across the inferior cavotricuspid isthmus subsequently demonstrated. > Off amiodarone Hypertension HLD (hyperlipidemia) Chest pain Brain abscess Review of Systems Review of Systems Constitutional: Positive for malaise/fatigue. Negative for weight gain and weight loss. Cardiovascular: Positive for dyspnea on exertion. Negative for palpitations. Musculoskeletal: Positive for back pain. Meds Current Outpatient Medications Medication Sig Dispense Refill acetaminophen (Tylenol) 500 mg tablet Take 1 tablet by mouth every 4 hours as needed for Pain (For Mild Pain (1-3) or Fever.). 30 tablet 1 clopidogreL (Plavix) 75 mg tablet Take 1 tablet by mouth daily. 90 tablet 3 clotrimazole (LOTRIMIN) 1 % Cream Apply topically as needed. atorvastatin (Lipitor) 80 mg tablet Take 1 tablet by mouth every evening. 90 tablet 3 nitrofurantoin (Macrobid) 100 mg capsule Take 100 mg by mouth 2 times daily. For 7 days lisinopriL (Zestril) 5 mg tablet Take 5 mg by mouth daily. HYDROcodone-acetaminophen (Hearne) 5-325 mg tablet Take by mouth every 6 hours as needed. [place] [employer] Verio test strips Strip USE TO CHECK BLOOD GLUCOSE DAILY DIRECTED rivaroxaban (Xarelto) 20 mg tablet Take 1 tablet by mouth daily. 90 tablet 3 timoloL (Timoptic) 0.5 % Drops Place 1 drop into the left eye 2 times daily. nitroGLYcerin (NITROSTAT) 0.4 mg Tablet, Sublingual Place 1 tablet under the tongue every 5 minutesas needed for Chest pain. (Patient not taking: Reported on 09/19/2023) 90 tablet 12 No current facility-administered medications for this visit. 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 Social Determinants of Health Financial Resource Strain: Not on file Food Insecurity: Not on file Transportation Needs: Not on file Physical Activity: Not on file Intimate Partner Violence: Not At Risk (05/20/2023) IPV Inpatient Questions Prevent Contact with Others: no Feels Threatened by Someone: no Feels Unsafe at Home: no Physical Signs of Abuse Present: no Housing Stability: Not on file Family History Family History Problem Relation Age of Onset Alzheimer Disease Brother Exam Patient Vitals for the past 24 hrs: Pulse BP 02/11/24 1040 98 135/78 Physical Exam Constitutional: Comments: Body mass index is 27.18 kg/m??. HENT: Mouth/Throat: Pharynx: No oropharyngeal exudate. Eyes: Conjunctiva/sclera: Conjunctivae normal. Cardiovascular: Rate and Rhythm: Normal rate. Rhythm irregular. Pulses: Normal pulses. Pulmonary: Effort: Pulmonary effort is normal. Skin: General: Skin is warm. Comments: Left chest senior analyst programmer in place Neurological: General: No focal deficit present. Mental Status: He is alert. Psychiatric: Mood and Affect: Mood normal. I have personally reviewed the ECG: atrial fibrillation - 98 bpm, QRS 80ms, QT 380ms Impression Camacho Flores is seen in the EP clinic for follow-up of his paroxysmal atrial fibrillation. He is a former patient of Dr Nelson. He had an atrial fibrillation ablation (incomplete posterior wall isolation, cavotricuspid isthmus ablation), in 2018. He has had a recent episode of AF RVR with some mild congestive heart failure, and was treated at [facility], with diuresis, and changed to rate control with diltiazem. He feels quite well, is increasing his exercise. He has not needed to use his Lasix recently. We had a discussion about his discontinuing Xarelto (because of nosebleeds), and rate control versus rhythm control for his atrial fibrillation. I believe that there is little chance of meaningful maintaining sinus rhythm long-term, even with repeat ablation, so I think a rate control strategy is reasonable. He will continue on his diltiazem. Will also consider rechallenging himself with Xarelto, if he has further nosebleeds he may need to see ear nose and throat. Watchman, is also a possibility. Recommendations / Plan A) No changes to meds B) Routine follow up in about 6 months for AF surveillance C) Will retrial Xarelto - if he has more nasal epistaxis, might need to see ENT D) Will obtain copies of the results of his senior analyst programmer (which he is wearing currently) GONZALES TORRES MD Cardiac Electrophysiology [facility] [place] 20 minutes were spent preparing to see the patient (e.g. review of tests), obtaining and/or reviewing separately obtained history, performing a medically appropriate examination and/or evaluation, counseling and educating the patient, ordering medications, tests, or procedures, documenting clinicalinformation in the electronic medical record, Independently interpreting results Cc: Camacho Barrera DO documented in this encounter Plan of Treatment Upcoming Encounters Date Type Department Care Team (Late st Contact Info) Description 09/08/2024 9:40 AM EDT Office Visit Cardiology at [address] [address] Gonzales Torres MD [facility] [place] [address] documented as of this encounter Visit Diagnoses Diagnosis Persistent atrial fibrillation Atrial fibrillation documented in this encounter Care Teams Sueding And Buffing Machine Operator Relationship Specialty Start Date End Date Camacho Barrera DO [address] [place] [id number] PCP - General Family Medicine 07/01/18 documented as of this encounter
--- OUTSIDE RECORDS SUMMARY | 2024-07-21 19:26 | XMS_ITS | Referral Summary ---
Author Organization [facility] Address [address] [place] [address] Care Team Providers Care Broadband Installer Name Role Phone Camacho Irwin MD Primary Care Provider Unav ailable Encounters Date Type Department Care Team Description 07/10/2024 Lab Requisition [facility] Pathology & Laboratory Medicine - [address] [address] Outr Resulting Lab, Provider from Last 3 Months Allergies Active Allergy Reactions Criticality Noted Date [...] this medicine without discussing first with your furniture cleaner. 90 Tab 3 08/23/2011 Active Social History Tobacco Use Types Packs/Day Years [...] Body Mass Index 26.96 08/20/2011 1300 EDT Functional Status Cognitive Status Response Date of Assessm ent Because of a physical, menta l, or emotional condition, do you have serious difficulty concentrating, remembering, or making decisions? (5 years old or older) Yes 08/22/2011 Plan of Treatment Not on file Procedures Procedure Name Priority Date/Time Associated Diagnosis Comments FECAL BACTERIAL PATHOGENS BY PCR Routine 07/09/2024 12:23 EDT from Last 3 Months Results * FECAL BACTERIAL PATHOGENS BY PCR (07/09/2024 12:23 EDT) Salmonella PCR Negative Negative 07/11/2024 22:53 EDT [facility] Shigella/Enteroin vasive E. coli Negative Negative 07/11/2024 22:53 EDT [facility] HN LAB CAMPYLOBACTER PCR Negative Negative 07/11/2024 22:53 EDT [facility] Shiga Toxin PCR Negative Negative 22:53 EDT [facility] Feces SPECIMEN FROM RECTUM / Unknown 07/09/2024 12:23 EDT 07/11/2024 17:15 EDT Provider Outr Resulting Lab MICROBIOLOGY - GENERAL ORDERABLES [facility] [address] [place], [place] [id number] from Last 3 Months Advance Directives For more information, please contact: [phone] Documents on File Type Date Recorded Patient It Risk And Assurance Manager Expl anation Advance Directive 08/22/2011 8:48 * Full Code (Latest Code Status on File) Date Activated Date Inactivated Comments 08/22/2011 12:02 08/23/2011 13:03 Care Teams Broadband Installer Relationship Specialty Start Date End Date Camacho Irwin MD PCP - General 08/20/11
--- OUTSIDE RECORDS SUMMARY | 2024-07-21 19:26 | XMS_ITS | Encounter Summary ---
Author Organization [facility] Address [address] [place] [address] Care Team Providers Care Psychologist Personnel Name Role Phone Camacho Irwin MD Primary Care Provider Unav ailable Encounter Details Date Type Department Care Team (Late st Contact Info) Description 07/10/2024 Lab Requisition [facility] Pathology & Laboratory Medicine - [address] [address] Outr Resulting Lab, Provider Social History Tobacco [...] PATHOGENS BY PCR Routine 07/09/2024 12:23 EDT documented in this encounter Results * FECAL BACTERIAL PATHOGENS BY PCR (07/09/2024 12:23 EDT) Salmonella PCR Negative Negative 07/11/2024 22:53 EDT [facility] Shigella/Enteroin vasive E. coli Negative Negative 07/11/2024 22:53 EDT [facility] HN LAB CAMPYLOBACTER PCR Negative Negative 07/11/2024 22:53 EDT [facility] Shiga Toxin PCR Negative Negative 22:53 EDT [facility] Feces SPECIMEN FROM RECTUM / Unknown 07/09/2024 12:23 EDT 07/11/2024 17:15 EDT Provider Outr Resulting Lab MICROBIOLOGY - GENERAL ORDERABLES Performing Organization Address City/State/[facility] Co de Phone Number [facility] [address] [place] [address] documented in this encounter Visit Diagnoses Not on filedocumented in this encounter Care Teams Psychologist Personnel Relationship Specialty Start Date End Date Camacho Irwin MD PCP - General 08/20/11 documented as of this encounter
--- OUTSIDE RECORDS SUMMARY | 2024-07-21 19:26 | XMS_ITS | Encounter Summary ---
[place] [address] Care Team Providers Care Guest Relations Agent Name Role Phone Camacho Barrera DO Primary Care Provider [phone] Encounter Details Date Type Department Care Team (Late st Contact Info) Description 11/25/2023 Telephone [place] [phone] Nelia Case Social History Tobacco Use Types Packs/Day Years Used Date Smoking Tobacco: Never Smokeless Tobacco: Never Alcohol Use Standard Drinks/Week Comments Yes 14 (1 standard drink = 0.6 oz pu re alcohol) 2-3 drinks/night [facility] Inpatient Questions Answer Date Recorded Does [...] encounter Miscellaneous Notes * Telephone Encounter - Nelia Case - 11/25/2023 4:46 PM EST Called patient to reschedule his appointments that he needed to cancel on 11/26/23. Patient states that he will call us back in a week or so to reschedule as he is having problems with transportation. documented in this encounter Plan of Treatment Upcoming Encounters Date Type Department Care Team (Late st Contact Info) Description 09/08/2024 9:40 AM EDT Office Visit Cardiology at [address] [place] [address] Gonzales Torres MD [facility] [place] [place] [address] documented as of this encounter Visit Diagnoses Not on filedocumented in this encounter Care Teams Guest Relations Agent Relationship Specialty Start Date End Date Camacho Barrera DO [address] [place] [address] PCP - General Family Medicine 07/01/18 documented as of this encounter
--- OUTSIDE RECORDS SUMMARY | 2024-07-21 19:26 | XMS_ITS | Encounter Summary ---
[place] [address] Care Team Providers Care Production Control Planner Name Role Phone Camacho Barrera DO Primary Care Provider [phone] Encounter Details Date Type Department Care Team (Late st Contact Info) Description 09/19/2023 10:00 AM EDT Tech [place] [address] Zander Rivas Carotid stenosis, asymptomatic, bilateral Social History Tobacco Use Types Packs/Day Years Used Date Smoking Tobacco: Never Smokeless Tobacco: Never Alcohol Use Standard Drinks/Week Comments Yes 14 (1 standard drink = 0.6 oz pu re alcohol) 2-3 drinks/night IPV Inpatient Questions Answer Date Recorded Does [...] 9:40 AM EDT Office Visit Cardiology at [address] [place] [address] [facility] [place] [address] documented as of this encounter Procedures Procedure Name Priority Date/Time Associated Diagnosis Comments CAROTID DUPLEX, BILATERAL Routine 09/19/2023 9:59 AM EDT Carotid stenosis, asymptomatic, bilateral documented in this encounter Results * Carotid Duplex, Bilateral (09/19/2023 9:59 AM EDT) VB Text Report Department: Vascular Surgery Lab Patient: [id number] (CAMACHO FLORES) CPT: [id number] Referring Physician: BRIAN FAGAN ?? Phone: Indications: Carotid stenosis s/p endarterectomy ? change in stenosis Findings: ICA Proximal, Right ? PSV (cm/s): 346 ? EDV (cm/s): 124 ? ICA/CCA: 7.2 ? Plaque Structure: Echogenic ? Plaque Surface: Irregular ? %Stenosis: 70-79% ICA Middle, Right ? PSV (cm/s): 140 ? EDV (cm/s): 63 ? ICA/CCA: 2.9 ICA Distal, Right ? PSV (cm/s): 79 ? EDV (cm/s): 25 ? ICA/CCA: 1.6 CCA Distal, Right ? PSV (cm/s): 48 ? EDV (cm/s): 9 ? %Stenosis: <50% CCA Proximal, Right ? PSV (cm/s): 51 ? EDV (cm/s): 13 External Carotid Artery, Right ? PSV (cm/s): 76 ? EDV (cm/s): 8 ? %Stenosis: <50% Vertebral, Right ? PSV (cm/s): 16 ? EDV (cm/s): 0 ? Direction of Flow: Resistive Antegrade ICA Proximal, Left ? PSV (cm/s): 95 ? EDV (cm/s): 27 ? ICA/CCA: 1.7 ? Plaque Structure: Echogenic ? Plaque Surface: Smooth ? %Stenosis: <15% ICA Distal, Left ? PSV (cm/s): 86 ? EDV (cm/s): 32 ? ICA/CCA: 1.6 CCA Distal, Left ? PSV (cm/s): 55 ? EDV (cm/s): 19 ? %Stenosis: <50% CCA Proximal, Left ? PSV (cm/s): 69 ? EDV (cm/s): 12 External Carotid Artery, Left ? PSV (cm/s): 288 ? EDV (cm/s): 66 ? %Stenosis: >50% Vertebral, Left ? PSV (cm/s): 56 ? EDV (cm/s): 25 ? Direction of Flow: Antegrade Interpretation: RIGHT: There is irregular plaque in the common carotid artery causing <50% stenosis by B-mode. There is bulky irregular plaque in the proximal internal carotid artery causing 70-79% stenosis when compared to the more distal internal carotid artery. The bifurcation level is in the mid neck. When compared to the previous exam on 05/21/2023 there is a decrease in velocities (346/123 cm/s; previously 571/173 cm/s) s/p contralateral endarterectomy now suggestive of 70-79% stenosis rather than 80-99% stenosis. LEFT: There is irregular plaque in the [...] finding of elevated velocities in the ECA. Vertebral Artery Data: Patent right vertebral artery with resistant waveforms suggesting more distal obstruction/occlus ion. Patent left vertebral artery with normal antegrade Doppler waveforms and velocities. Previous Carotid Studies: Date ?RIGHT ICA Stenosis ??PSV ?? Ratio ?? LEFT ICA Stenosis ?? PSV ?? Ratio ? 80-99% ? 571 ?? 8.20 ? 16-49% ? 177 ?? 2.40 ? n/a ?n/a ?? n/a ?<15% ? 73 ?2.90 ? n/a ?n/a ?? n/a ?<15% ? 166 ?? 3.00 Current Exam ? 70-79% ? 346 ?? 7.20 ? <15% ? 95 ?1.70 Electronically Signed by: LORENA LUZ on 2023-09-25 08:56:12 PM [facility] VB Text Report End of Report [facility] 09/19/2023 9:59 AM EDT Brian Fagan APRN VASCULAR ORDERABLES [facility] documented in this encounter Visit Diagnoses Diagnosis Carotid stenosis, asymptomatic, bilateral documented in this encounter Care Teams Production Control Planner Relationship Specialty Start Date End Date Camacho Barrera DO [address] [place] [address] PCP - General Family Medicine 07/01/18 documented as of this encounter
--- OUTSIDE RECORDS SUMMARY | 2024-07-21 19:26 | XMS_ITS | Encounter Summary ---
Author Organization [facility] Address [address] [place] [address] Care Team Providers Care Lna Name Role Phone Camacho Irwin MD Primary Care Provider Unav ailable Encounter Details Date Type Department Care Team (Late st Contact Info) Description 02/07/2022 Lab Requisition [facility] Pathology & Laboratory Medicine - [facility] [address] [place] [address] Outr Resulting Lab, Provider Social History Tobacco [...] Comments ZZCOVID-19 TEST [facility] PCR Today 02/06/2022 15:25 EST COVID-19 TESTING Routine 02/06/2022 15:2 5 EST documented in this encounter Results * COVID-19 TEST [facility] PCR (02/06/2022 15:25 EST) Swab 02/06/2022 15:2 5 EST 02/07/2022 17:06 EST Provider Outr Resulting Lab MICROBIOLOGY - GENERAL ORDERABLES [facility] [address] [place] [address] * COVID-19 TESTING (02/06/2022 15:25 EST) COVID-19 rt-PCR Result Negative Negative 02/08/2022 12:30 EST [facility] Comment: This test has not [...] clinical observations, patient history, and epidemiological information. Testing was performed using the lea SARS-CoV-2 assay ([employer] on the Lea 6800 System Performing Lab Lea 6800 [facility] Lab 02/08/2022 12:30 EST [facility] Swab 02/06/2022 15:2 5 EST 02/07/2022 17:06 EST Provider Outr Resulting Lab MICROBIOLOGY - GENERAL ORDERABLES [facility] [address] [place] [address] documented in this encounter Visit Diagnoses Not on filedocumented in this encounter Care Teams Lna Relationship Specialty Start Date End Date Camacho Irwin MD PCP - General 08/20/11 documented as of this encounter
--- OUTSIDE RECORDS SUMMARY | 2024-07-21 19:26 | XMS_ITS | Encounter Summary ---
Author Organization [facility] Address [address] [place] [address] Care Team Providers Care Broadcast Supervisor Name Role Phone Camacho Irwin MD Primary Care Provider Unav ailable Encounter Details Date Type Department Care Team (Late st Contact Info) Description 04/08/2018 Historical Results Only [facility] [address] [place] [phone] Unknown, Provider, Social History Tobacco Use Types Packs/Day Years [...] Procedure Name Priority Date/Time Associated Diagnosis Comments TRANSTHORACIC ECHO (TTE) COMPLETE 04/08/2018 14:07 EDT documented in this encounter Results * TRANSTHORACIC ECHO (TTE) COMPLETE (04/08/2018 14:07 EDT) Anatomical Region Laterality Modality Ultrasound 04/08/2018 14:0 7 EDT Narrative 04/08/2018 14:07 EDT ?[facility] ?[address] [place], [place] [address] ? [id number] ? E C H O C A R D I O G R A M ? R E P O R T NAME: CAMACHO FLORES ? : 45 ? LOCATION: CARD ? TELEPHONE: [phone] ?MR#: [id number] ? *[facility]* *[facility]* [address] [place] [address] Date of study: 04/08/2018 Transthoracic Echocardiography M-mode, complete 2D, complete spectral Doppler, and color Doppler *STUDY CONCLUSIONS* Impressions: ??The patient was in atrial fibrillation throughout study. This rhythm can interfere with accurate global and segmental wall motion analysis. Summary: 1. Left ventricle: The cavity size was normal. Wall thickness was at the ?? upper limits of normal. Systolic function was normal. The estimated ?? ejection fraction was 60-65%. Wall motion was normal; there were no ?? regional wall motion abnormalities. 2. Right ventricle: The cavity size was normal. Systolic function was ?? normal. 3. Left atrium: The atrium was mildly dilated. 4. Ascending aorta: The ascending aorta was mildly dilated (43 mm). 5. Inferior vena cava: The vessel was normal in size. The respirophasic ?? diameter changes were in the normal range (greater than or equal to ?? 50%), consistent with normal central venous pressure. *PATIENT PRESENTATION* Height: ? 188cm ((74in) ) S/D Pressure: 141 / 78 Weight: ? 99.8kg ((219.5lb) ) BSA: ?2.3m S 2 Test start time: ??02:05 PM. Test stop time: ??02:45 PM. MOTOR GENERATOR SET OPERATOR ??Sadia Vanegas ?? [facility] [place] [facility] ORDERING ? Claribel Cummings *PROCEDURE DATA* Procedure information: ??The patient was identified by two identifiers. This study was interpreted by [facility] ?[facility] ?[address] [place], [place] [address] ? [id number] ? E C H O C A R D I O G R A M ? R E P O R T NAME: CAMACHO FLORES ? : 45 ? LOCATION: CARD ? TELEPHONE: [phone] ?MR#: [id number] ? [facility]. Pertinent images and digital data are archived for permanent storage and are available for subsequent review. No prior study was available for comparison. ??Study status: Routine. Transthoracic echocardiography. ??M-mode, complete 2D, complete spectral Doppler, and color Doppler. A Transthoracic Echocardiogram was performed. Scanning was performed from the parasternal, apical, subcostal, and suprasternal notch acoustic windows. Images were obtained using a [facility] IE33 2 cardiac ultrasound machine. Image quality was adequate. ??Study completion: ??The patient tolerated the procedure well. There were no complications. *INDICATIONS AND HISTORY* Indications: ??ATRIAL FIBRILLATION *CARDIAC ANATOMY* Left ventricle: ??The cavity size was normal. Wall thickness was at the upper limits of normal. Systolic function was normal. The estimated ejection fraction was 60-65%. Wall motion was normal; there were no regional wall motion abnormalities. The study was not technically sufficient to allow evaluation of LV diastolic dysfunction due to atrial fibrillation. Doppler parameters are consistent with high ventricular filling pressure. Aortic valve: ?? Trileaflet; mildly thickened, mildly calcified leaflets. Mobility was not restricted. ??Doppler: ??Transvalvular velocity was within the normal range. There was no stenosis. There was no significant regurgitation. Aorta: ??Aortic root: The aortic root was normal in size. Ascending aorta: The ascending aorta was mildly dilated (43 mm). Mitral valve: ?? Mildly calcified annulus. Mildly thickened leaflets. Mobility was not restricted. ??Doppler: ??Transvalvular velocity was within the normal range. There was no evidence for stenosis. There was mild regurgitation. Left atrium: ??The atrium was mildly dilated. Right ventricle: ??The cavity size was normal. Systolic function was normal. Pulmonic valve: ?? Poorly visualized. ??Doppler: ??Transvalvular velocity was within the normal range. There was no evidence for stenosis. There was no significant regurgitation. Tricuspid valve: ?? Structurally normal valve. ?Doppler: ??Transvalvular velocity was within the normal range. There was no evidence for stenosis. There was no significant regurgitation. Pulmonary artery: ?? Poorly visualized. ??Systolic pressure could not be accurately estimated. Right atrium: ??The atrium was dilated. Pericardium: ??There was no significant pericardial effusion. Systemic veins: Inferior vena cava: The vessel was normal in size. The respirophasic ?[facility] ?[address] [place], [place] [address] ? [id number] ? E C H O C A R D I O G R A M ? R E P O R T NAME: CAMACHO FLORES ? : 45 ? LOCATION: CARD ? TELEPHONE: [phone] ?MR#: [id number] ? diameter changes were in the normal range (greater than or equal to 50%), consistent with normal central venous pressure. Measurements Left ventricle ? Value ?Reference LV ID, ED, PLAX ?4.0 ?? cm ? 3.5 - 6.0 LV ID, ES, PLAX ?2.6 ?? cm ? 2.1 - 4.0 LV PW thickness, ED, PLAX ?1.1 ?? cm ? LV end-diastolic volume, 1-p A2C ? 53 ?ml ? LV end-diastolic volume, 1-p A4C ? 52 ?ml ? LV ejection fraction, 1-p A4C ?65 ?% ? LV e', lateral ? 0.065 m/sec ?? LV e', medial ?0.058 m/sec ?? LV e', average ? 0.061 m/sec ?? Ventricular septum ? Value ?Reference IVS thickness, ED, PLAX ?1.1 ?? cm ? Aorta ?Value ?Reference Aortic root ID ? 3.5 ?? cm ? Ascending aorta ID, A-P ?4.3 ?? cm ? Ascending aorta ID, A-P, S ? 4.2 ?? cm ? Left atrium ?Value ?Reference LA ID, A-P, ES ? 4.2 ?? cm ? LA ID/bsa, A-P ? 1.8 ?? cm/m S 2 <=2.2 LA area, ES, A4C ? (H) ? 24.5 ??cm S 2 ?? 8.8 - 23.4 LA area, ES, A2C ? 24 ?cm S 2 ?? LA volume, ES, 2-p ? 73 ?ml ? LA volume/bsa, ES, 2-p ? 32 ?ml/m S 2 LA/aortic root ratio ? 1.2 ? Right atrium ? Value ?Reference RA area, ES, A4C ? (H) ? 20.9 ??cm S 2 ?? 8.3 - 19.5 Legend: (L) ??and ??(H) ??hitesh values outside specified reference range. I have personally reviewed the images and have reviewed and edited the reported findings. Electronically signed by Quang Donaldson 04/08/2018 15:16 Procedure Note Quang Donaldson MD - 09/19/2019 [facility] [address] [place], [place] [address] [id number] E C H O C A R D I O G R A M R E P O R T NAME: CAMACHO FLORES : 45LOCATION: CARD TELEPHONE: [phone] MR#: [id number] [id number] *[facility]* *[facility]* [address] [place] [address] Date of study: 04/08/2018 Transthoracic Echocardiography M-mode, complete 2D, complete spectral Doppler, and color Doppler *STUDY CONCLUSIONS* Impressions: The patient was in atrial fibrillation throughout study. This rhythm can interfere with accurate global and segmental wall motion analysis. Summary: 1. Left ventricle: The cavity size was normal. Wall thickness was at the upper limits of normal. Systolic function was normal. The estimated ejection fraction was 60-65%. Wall motion was normal; there were no regional wall motion abnormalities. 2. Right ventricle: The cavity size was normal. Systolic function was normal. 3. Left atrium: The atrium was mildly dilated. 4. Ascending aorta: The ascending aorta was mildly dilated (43 mm). 5. Inferior vena cava: The vessel was normal in size. The respirophasic diameter changes were in the normal range (greater than or equal to 50%), consistent with normal central venous pressure. *PATIENT PRESENTATION* Height: 188cm ((74in) ) S/D Pressure: 141 / 78 Weight: 99.8kg ((219.5lb) ) BSA: 2.3m S 2 Test start time: 02:05 PM. Test stop time: 02:45 PM. MOTOR GENERATOR SET OPERATOR Sadia Vanegas [facility] ORDERING Claribel Cumminsg Melissa *PROCEDURE DATA* Procedure information: The patient was identified by two identifiers. This study was interpreted by [facility] [address] [place] [id number] E C H O C A R D I O G R A M R E P O R T NAME: CAMACHO FLORES Zaki : 45LOCATION: CARD TELEPHONE: [phone] MR#: [id number] [id number] [facility]. Pertinent images and digital data are archived for permanent storage and are available for subsequent review. No prior study was available for comparison. Study status: Routine. Transthoracic echocardiography. M-mode, complete 2D, complete spectral Doppler, and color Doppler. A Transthoracic Echocardiogram was performed. Scanning was performed from the parasternal, apical, subcostal, and suprasternal notch acoustic windows. Images were obtained using a [facility] IE33 2 cardiac ultrasound machine. Image quality was adequate. Study completion: The patient tolerated the procedure well. There were no complications. *INDICATIONS AND HISTORY* Indications: ATRIAL FIBRILLATION *CARDIAC ANATOMY* Left ventricle: The cavity size was normal. Wall thickness was at the upper limits of normal. Systolic function was normal. The estimated ejection fraction was 60-65%. Wall motion was normal; there were no regional wall motion abnormalities. The study was not technically sufficient to allow evaluation of LV diastolic dysfunction due to atrial fibrillation. Doppler parameters are consistent with high ventricular filling pressure. Aortic valve: Trileaflet; mildly thickened, mildly calcified leaflets. Mobility was not restricted. Doppler: Transvalvular velocity was within the normal range. There was no stenosis. There was no significant regurgitation. Aorta: Aortic root: The aortic root was normal in size. Ascending aorta: The ascending aorta was mildly dilated (43 mm). Mitral valve: Mildly calcified annulus. Mildly thickened leaflets. Mobility was not restricted. Doppler: Transvalvular velocity was within the normal range. There was no evidence for stenosis. There was mild regurgitation. Left atrium: The atrium was mildly dilated. Right ventricle: The cavity size was normal. Systolic function was normal. Pulmonic valve: Poorly visualized. Doppler: Transvalvular velocity was within the normal range. There was no evidence for stenosis. There was no significant regurgitation. Tricuspid valve: Structurally normal valve. Doppler: Transvalvular velocity was within the normal range. There was no evidence for stenosis. There was no significant regurgitation. Pulmonary artery: Poorly visualized. Systolic pressure could not be accurately estimated. Right atrium: The atrium was dilated. Pericardium: There was no significant pericardial effusion. Systemic veins: Inferior vena cava: The vessel was normal in size. The respirophasic [facility] [address] [place], [place] [address] [id number] E C H O C A R D I O G R A M R E P O R T NAME: CAMACHO FLORES : 45LOCATION: CARD TELEPHONE: [phone] MR#: [id number] [id number] diameter changes were in the normal range (greater than or equal to 50%), consistent with normal central venous pressure. Measurements Left ventricle Value Reference LV ID, ED, PLAX 4.0 cm 3.5 - 6.0 LV ID, ES, PLAX 2.6 cm 2.1 - 4.0 LV PW thickness, ED, PLAX 1.1 cm LV end-diastolic volume, 1-p A2C 53 ml LV end-diastolic volume, 1-p A4C 52 ml LV ejection fraction, 1-p A4C 65 % LV e', lateral 0.065 m/sec LV e', medial 0.058 m/sec LV e', average 0.061 m/sec Ventricular septum Value Reference IVS thickness, ED, PLAX 1.1 cm Aorta Value Reference Aortic root ID 3.5 cm Ascending aorta ID, A-P 4.3 cm Ascending aorta ID, A-P, S 4.2 cm Left atrium Value Reference LA ID, A-P, ES 4.2 cm LA ID/bsa, A-P 1.8 cm/m S 2 <=2.2 LA area, ES, A4C (H) 24.5 cm S 2 8.8 - 23.4 LA area, ES, A2C 24 cm S 2 LA volume, ES, 2-p 73 ml LA volume/bsa, ES, 2-p 32 ml/m S 2 LA/aortic root ratio 1.2 Right atrium Value Reference RA area, ES, A4C (H) 20.9 cm S 2 8.3 - 19.5 Legend: (L) and (H) hitesh values outside specified reference range. I have personally reviewed the images and have reviewed and edited the reported findings. Electronically signed by Quang Donaldson 04/08/2018 15:16 Provider Unknown CARDIAC ECHO ORDERAB LES documented in this encounter Visit Diagnoses Not on filedocumented in this encounter Care Teams Broadcast Supervisor Relationship Specialty Start Date End Date Camacho Irwin MD PCP - General 08/20/11 documented as of this encounter
--- OUTSIDE RECORDS SUMMARY | 2024-07-21 19:27 | XMS_ITS | Encounter Summary ---
Author Organization [facility] [place] [address] Care Team Providers Care Warper Tender Name Role Phone Camacho Barrera DO Primary Care Provider [phone] Encounter Details Date Type Department Care Team (Latest Contact Info) Description 09/09/2023 Travel Social History Tobacco Use Types Packs/Day [...] 9:40 AM EDT Office Visit Cardiology at [address] [place] [address] Gonzales Torres MD [facility] [place] [address] documented as of this encounter Visit Diagnoses Not on filedocumented in this encounter Care Teams Warper Tender Relationship Specialty Start Date End Date Camacho Barrera DO [address] [place] [address] PCP - General Family Medicine 07/01/18 documented as of this encounter
--- OUTSIDE RECORDS SUMMARY | 2024-07-21 19:27 | XMS_ITS | Encounter Summary ---
Author Organization [facility] [place] [address] Care Team Providers Care Tape Cutter Name Role Phone Camacho Barrera DO Primary Care Provider [phone] Encounter Details Date Type Department Care Team (Latest Contact Info) Description 09/05/2023 Travel Social History Tobacco Use Types Packs/Day [...] 9:40 AM EDT Office Visit Cardiology at [address] [place] [address] Gonzales Torres MD [facility] [place] [address] documented as of this encounter Visit Diagnoses Not on filedocumented in this encounter Care Teams Tape Cutter Relationship Specialty Start Date End Date Camacho Barrera DO [address] [place] [address] PCP - General Family Medicine 07/01/18 documented as of this encounter
--- OUTSIDE RECORDS SUMMARY | 2024-07-21 19:27 | XMS_ITS | Encounter Summary ---
Author Organization [facility] [place] [address] Care Team Providers Care Sports Athletic Trainer Name Role Phone Camacho Barrera DO Primary Care Provider [phone] Encounter Details Date Type Department Care Team (Latest Contact Info) Description 09/03/2023 Travel Social History Tobacco Use Types Packs/Day [...] 9:40 AM EDT Office Visit Cardiology at [address] [place] [address] Gonzales Torres MD [facility] [place] [address] documented as of this encounter Visit Diagnoses Not on filedocumented in this encounter Care Teams Sports Athletic Trainer Relationship Specialty Start Date End Date Camacho Barrera DO [address] [place] [address] PCP - General Family Medicine 07/01/18 documented as of this encounter
--- OUTSIDE RECORDS SUMMARY | 2024-07-21 19:27 | XMS_ITS | Encounter Summary ---
[place] [address] Care Team Providers Care Fish Seiner Name Role Phone Mirna Barrera DO Primary Care Provider [phone] Reason for Visit * Auth/Cert (Routine) Specialty Diagnoses / Procedures Referred By Contac t Referred To Contact Diagnoses Occlusion and stenosis of bilateral carotid arteries Encounter for other preprocedural examination Bilateral Carotid Stenosis Procedures PRO THROMBOENDARTECTMY NECK, NECK INCIS @ENDARTERECTOMY, CAROTID, VERTEBRAL,SUBCLAVIAN W\WO PATCH GRAFT (WRVU 21.16) Lorena Chandra MD [facility] [place] [address] [facility] Referral ID Status Reason Start Date Expiration Date Visits Re quested Visits Authorized [id number] 1 1 Encounter Details Date Type Department Care Team (Late st Contact Info) Description 07/16/2023 11:46 AM EDT - 07/16/2023 4:02 PM EDT Surgery [place] [id number] Lorena Chandra MD [facility] [place] [address] @ENDARTERECTOMY, CAROTID, VERTEBRAL,SUBCLAVIAN W\WO PATCH GRAFT (WRVU 21.16) Social History Tobacco Use Types Packs/Day Years [...] Sign Reading Time Taken Comments Blood Pressure 155/82 07/16/2023 4:00 PM EDT Pulse 68 07/16/2023 4:00 PM EDT Temperature 36 ??C (96.8 ??F) 07/16/2023 3:52 PM EDT Respiratory Rate 23 07/16/2023 4:00 PM EDT Oxygen Saturation 99% 07/16/2023 4:00 PM EDT Inhaled Oxygen Concentration - - Weight 95.3 kg (210 lb) 07/16/2023 11:49 AM EDT Height 188 cm (6' 2) 07/16/2023 11:49 AM EDT Body Mass Index 26.96 07/16/2023 11:49 AM EDT documented in this encounter Discharge Summaries * Edwardo Brennan MD - 07/17/2023 9:37 AM EDT Inpatient - Discharge Summary Patient Name: Mirna Flores Patient Age: 77 y.o. Birthdate: 1945 Admit date: 07/16/2023 Discharge date and time: 07/17/2023 Attending Physician: Lorena Chandra MD Discharging Provider: Edwardo Brennan MD Discharging Service: Vascular Surgery Operations/Major Procedures: Left Carotid Endarterectomy Active Hospital Problems: Active Hospital Problems Diagnosis Left carotid artery stenosis Resolved Hospital Problems No resolved problems to display. Active Non Hospital Problems: Active Non-Hospital Problems Diagnosis Acute ischemic stroke Stroke Premature ventricular beats Status post ablation of atrial fibrillation ASCVD (arteriosclerotic cardiovascular disease) Atrial fibrillation Hypertension HLD (hyperlipidemia) Chest pain Brain abscess History of Presentation: Mirna Flores is a 77 year old male with PMH significant for chronic paroxysmal atrial fibrillation (on Xarelto, s/p ablation), HLD, HTN, CAD (s/p PCI 2006, BRENDA distal LAD x2/distal LCX x2, Ramus x1),brain abscess (s/p surgery and antibiotics, 2014) who was admitted in May of this year with multiple episodes right handed numbness and weakness after cataract surgery. The patient's numbness has resolved but he continues to have some residual right hand weakness. He underwent imaging which showeda left hemispheric stroke with a 50- 60% calcified left carotid lesion. Notably, he also has a 99% asymptomatic right carotid stenosis as well. Hospital Course: On 07/16/2023 Mr Flores went to the OR after presenting to [facility] with right hand weakness for a left carotid endarterectomy. The procedure went well, however by the end of the procedure a lizama catheter was placed with adalberto blood being drained from the lizama. Mr. Flores denies history of BPH, cystitis, or other comorbidity, therefore urology was consulted. They recommended continue following the patient as an outpatient with a non-contrast CT and uranalysis. Patient is neurovascular intact otherwise, so today he is medically able to be discharged. Important Studies and Lab Data: Labs: Last wbc, hgb, hct plt Recent Labs 07/16/23 0952 WBC 10.6* HGB 14.5 HCT 43.6 Last 3 Lytes Recent Labs 07/16/23 0952 05/21/23 0038 05/20/23 1155 NA 141 139 140 K 4.0 4.0 4.4 CL 103 105 105 CO2 26 23 24 BUN 18 17 17 CREATININE 0.78* 0.70* 0.80 Last Ca, Mg, Phos Recent Labs 07/16/23 0952 CALCIUM 10.1 Physical Exam HENT: Head: Normocephalic and atraumatic. Nose: Nose normal. Mouth/Throat: Mouth: Mucous membranes are moist. Eyes: Extraocular Movements: Extraocular movements intact. Pupils: Pupils are equal, round, and reactive to light. Neck: Comments: Left CEA incision CDI, mild edema, no induration or hematoma. Cardiovascular: Rate and Rhythm: Normal rate. Pulses: Normal pulses. Heart sounds: Normal heart sounds. Pulmonary: Breath sounds: Normal breath sounds. Abdominal: General: Abdomen is flat. Palpations: Abdomen is soft. Musculoskeletal: General: Normal range of motion. Skin: General: Skin is warm. Neurological: General: No focal deficit present. Mental Status: He is alert and oriented to person, place, and time. Discharge Condition: Stable Discharge to: Home Urology Consult Assessment: Mirna Flores is a 77 y.o. male with hematuria after traumatic catheterization. Lizama draining thin red without clots. Very likely hematuria 2/2 trauma. Given pt age and risk factors will also obtain UA and request outpatient f/u as discussed with Dr. Bender. Recommendations: - please obtain UA - ok to flush Lizama PRN - Lizama per primary team - outpatient hematuria work up requested: UA, cysto, RBUS and noncon CT Plan discussed with Dr. Bender, Urology Attending. Future Appointments and Orders Future Appointments and Orders Future Appointments Provider Department Dept Phone 08/13/2023 2:00 PM Gonzales Torres MD Cardiology at [place] Arrive at: [facility] [address] [phone] 09/09/2023 11:00 AM Milagros Parra APRN [facility]rology at [facility] [place]rive at: [employer] [facility] [address] [phone] Future Orders Complete By Expires Carotid Duplex, Unilateral [VAS2 Custom] 08/14/2023 (Approximate) 02/13/2024 Process Instructions: There is no in-house vascular earth science laboratory technician available on weeknights (5pm-8am), weekends, or holidays. IF THIS IS A REQUEST FOR AN EMERGENT STUDY DURING THOSE HOURS, please have the senior provider responsible for the patient page the Vascular Surgery Fellow/Senior Resident health commissioner to discuss options. Scheduling Instructions: Questions: Laterality: Left Indication for study/signs & symptoms: Carotid Stenosis Question to be answered: Poost CEA Preferred location?: [facility] CT Abdomen & Pelvis wo Contrast [[id number] Custom] 08/16/2023 (Approximate) 02/15/2024 Process Instructions: 1.Choose 'reason for exam' (a structured indication-for billing & compliance). If you don't seethe correct reason under 'common indications' you can write it in under 'Reason for Exam(Free Text)' just below the drop down list. 2.Add additional clinical information in the 'clinical information/fried question for radiologist' field. Relevant PMH, symptoms and what you are concerned for is ESSENTIAL information. 3.For cancer indications, include specific cancer type, reason being done (i.e resectability/ response to treatment / staging) and how treated if surgery or percutaneous therapies. Scheduling Instructions: Questions: Clinical information / fried questions for radiologist: Where will study be performed?: [facility] Radiology Stat read required?: Does patient require sedation?: GA rationale: Date of injury if applicable: Urinalysis with reflex Culture [[id number] Custom] 08/16/2023 (Approximate) 02/15/2024 Process Instructions: A urine culture will be added on by the lab if WBCs greater than 10 and/or moderate or large leukocytes and/or positive nitrites are found. Scheduling Instructions: Comments: Questions: Preferred urine source for collection: Clean Catch Urine US Retroperitoneal Complete [[id number] Custom] 08/16/2023 (Approximate) 02/15/2024 Process Instructions: This exam includes imaging of both kidneys, ureters & bladder. Scheduling Instructions: Questions: Where will study be performed?: [facility] Radiology Portable exam?: Ultrasound scheduling priority: Reason for exam and clinical history: gross hematuria Clinical information / fried questions for radiologist: Stat read required?: Date of injury if applicable: Requested Time: Anticoagulation & Antiplatelet: Anticoagulation: Lovenox Agent: Enoxaparin Indication: CEA Intended Duration: Indefinitely Antiplatelet: ASA Agent: Aspirin Indication: CEA Intended Duration: Indefinitely For questions regarding these medications, please contact Vascular Surgery at [phone]. For issues on weeknights after 5pm and weekends please call [phone] and ask for the Vascular Fellow oncall. Discharge Medications: Your Medications New Medications Dose Details acetaminophen 500 mg tablet Commonly known as: Tylenol Take 1 tablet by mouth every 4 hours as needed for Pain (For Mild Pain (1-3) or Fever.). 500 mg Quantity: 30 tablet Refills: 1 clopidogreL 75 mg tablet Commonly known as: Plavix Take 1 tablet by mouth daily. Start taking on: July 18, 2023 75 mg Quantity: 90 tablet Refills: 3 Continued medications, unchanged Dose Details aspirin 81 mg chewable tablet Take 81 mg by mouth daily. 81 mg Quantity: 30 tablet Refills: 3 atorvastatin 80 mg tablet Commonly known as: Lipitor Take 1 tablet by mouth every evening. 80 mg Quantity: 90 tablet Refills: 3 clotrimazole 1 % Cream Commonly known as: LOTRIMIN Apply topically as needed. Refills: 0 enoxaparin 100 mg/mL Syringe Commonly known as: Lovenox Inject 100 mg subcutaneously 2 times daily. 100 mg Refills: 0 lisinopriL 20 mg tablet Commonly known as: Zestril Take 20 mg by mouth daily. 20 mg Refills: 0 nitroGLYcerin 0.4 mg sublingual tablet Commonly known as: Nitrostat Place 1 tablet under the tongue every 5 minutes as needed for Chest pain. 0.4 mg Quantity: 90 tablet Refills: 12 OneTouch Verio test strips Strip USE TO CHECK BLOOD GLUCOSE DAILY DIRECTED Generic drug: blood sugar diagnostic strips Refills: 0 rivaroxaban 20 mg tablet Commonly known as: Xarelto Take 1 tablet by mouth daily. 20 mg Quantity: 90 tablet Refills: 3 timoloL 0.5 % Drops Commonly known as: Timoptic Place 1 drop into the left eye 2 times daily. 1 drop Refills: 0 Updated Allergies/ADRs: Allergies Allergen Reactions Bee Pollen Anaphylaxis Bee Stings Use to carry Epi Pen, Penicillins Angioedema States as a child, had facial, lip swelling. Shellfish Containing Products Nausea And Vomiting SHRIMP only. Blotches, swelling, Shrimp Ceftriaxone Other (See Comments) leukopenia Keppra [Levetiracetam] Other (See Comments) leukopenia Simvastatin Other (See Comments) Myalgia Follow-up Recommendations for Providers: Patient s/p uneventful left CEA, who will be followed as an outpatient with urology for a traumaticcatheterization. Instructions Given to Patient at Discharge: Patient Instructions You were admitted for surgical repair of a carotid stenosis. A left carotid endarterectomy was performed on 07/16/2023. Your surgery went well. We will want to see you in one month with a carotid duplex. These appointments will be mailed to you, if you do not receive them please call our office as your follow up is important to us. Call your doctor if: You have a temperature >100.5, redness, drainage, separation of your neck incision, any change in vision or speech, if you are unable to use an extremity or have a headache unresolved by Tylenol. Activity level: Up as tolerated Diet: Regular diet Driving: None for a week or two and/or until you are able to turn your head and neck to safely drive and only if you were driving prior to this admission Shower/Bath: Ok to shower Wound Care: Wash Right neck incision with soap and water daily, pat dry. When shaving be sure to avoid incision and surrounding are until completely healed Urology Outpatient: You will be followed as an outpatient by Urology with UA, cysto, RBUS and noncon CT. For questions regarding these medications, please contact Vascular Surgery at [phone]. For issues on weeknights after 5pm and weekends please call [phone] and ask for the Vascular Fellow onctita. For questions regarding these medications, please contact Vascular Surgery at [phone]. For issues on weeknights after 5pm and weekends please call [phone] and ask for the Vascular Fellow onctita. documented in this encounter Discharge Instructions * Patient Instructions* Edwardo Brennan MD - 07/17/2023 9:32 AM EDT You were admitted for surgical repair of a carotid stenosis. A left carotid endarterectomy was performed on 07/16/2023. Your surgery went well. We will want to see you in one month with a carotid duplex. These appointments will be mailed to you, if you do not receive them please call our office as your follow up is important to us. Call your doctor if: You have a temperature >100.5, redness, drainage, separation of your neck incision, any change in vision or speech, if you are unable to use an extremity or have a headache unresolved by Tylenol. Activity level: Up as tolerated Diet: Regular diet Driving: None for a week or two and/or until you are able to turn your head and neck to safely drive and only if you were driving prior to this admission Shower/Bath: Ok to shower Wound Care: Wash Right neck incision with soap and water daily, pat dry. When shaving be sure to avoid incision and surrounding are until completely healed Urology Outpatient: You will be followed as an outpatient by Urology with UA, cysto, RBUS and noncon CT. For questions regarding these medications, please contact Vascular Surgery at [phone]. For issues on weeknights after 5pm and weekends please call [phone] and ask for the Vascular Fellow laquita. documented in this encounter Medications at Time of Discharge Medication Sig Dispensed Refills Start Date End Date acetaminophen (Tylenol) 500 mg tablet Take 1 tablet by mouth every 4 hours as needed for Pain (For Mild Pain (1-3) or Fever.). 30 tablet 1 07/17/2023 clopidogreL (Plavix) 75 mg tablet Take 1 tablet by mouth daily. 90 tablet 3 07/18/2023 clotrimazole (LOTRIMIN) 1 % Cream Apply topically as needed. OneTouch Verio test strips Strip USE TO CHECK BLOOD GLUCOSE DAILY DIRECTED 03/19/2023 atorvastatin (Lipitor) 80 mg tablet Take 1 tablet by mouth every evening. 90 tablet 3 05/21/2023 timoloL (Timoptic) 0.5 % Drops Place 1 drop into the left eye 2 times daily. 06/19/2022 enoxaparin (Lovenox) 100 mg/mL Syringe Inject 100 mg subcutaneously 2 times daily. 08/13/2023 aspirin 81 mg chewable tablet Take 81 mg by mouth daily. 30 tablet 3 05/22/2023 02/11/2024 rivaroxaban (Xarelto) 20 mg tabletIndications:Par oxysmal atrial fibrillation Take 1 tablet by mouth daily. 90 tablet 3 02/11/2023 02/11/2024 lisinopriL (Zestril) 20 mg Tablet Take 20 mg by mouth daily. 05/22/2022 08/13/2023 nitroGLYcerin (NITROSTAT) 0.4 mg Tablet, Sublingual Place 1 tablet under the tongue every 5 minutes as needed for Chest pain. 90 tablet 12 08/01/2018 02/11/2024 documented as of this encounter Progress Notes * Malena Marin RN - 07/17/2023 12:45 PM EDT [facility] Short Stay Unit Discharge Note All relevant discharge milestones have been met by the patent. After Visit Summary and discharge teaching reviewed with the patient. IV access has been discontinued. Provided Lizama Catheter teaching and education. Patient discharged with Lizama Catheter in place andsupplies. All personal belongings have been returned to the patient/family upon their departure from the unit. Patient has been discharged to home The patient has been discharged without VNA services. * Lior Trinidad RN - 07/17/2023 4:37 AM EDT Patient alert and oriented throughout shift. Vital signs stable. No complaints of pain. Dressing toneck intact with some dried drainage. Lizama in place and draining bloody urine. Call hinkle within reach and patient ringing appropriately. Will continue to monitor. * Crispin Andujar MD - 07/16/2023 8:48 PM EDT [facility] Department of Vascular Surgery Inpatient Post Op Check Note Patient Name: Mirna Flores Patient : 1945 Patient Patient Location: [address] Attending Surgeon: LORENA CHANDRA ID: Mirna Flores is a 77 y.o. male who is Day of Surgery s/p L CEA Subjective: No nausea/vomiting, chest pain, SOB, pain well controlled, offers no complaints. Deniesheadache or visual changes. Vitals: Temp: [36 ??C (96.8 ??F)-36.5 ??C (97.7 ??F)] Heart Rate: [56-68] Resp: [13-23] BP: (126-164)/(57-89) SpO2: [92 %-100 %] Heart Rate from SpO2: [56 bpm-68 bpm] Wt & BMI By Encounter Date Flowsheet Row Admission (Current) [facility] 07[facility] [facility] OfficeVisit from 06/20/2023 in Vascular Surgery at [facility] Weight 95.3 kg (210 lb) 1 07/16/2023 1149 96.6 kg (213 lb) [reported] 1 06/20/2023 0911 BMI 26.96 1 07/16/2023 1149 27.34 1 06/20/2023 0911 Physical Exam: Gen: NAD, pleasant, sitting comfortably in bed HEENT: normocephalic, atraumatic, EOMI, sclerae anicteric, PERRL 2mm->1mm bl. Neck: supple, trachea midline. L CEA incision CDI, mild edema, no induration or hematoma. Card: RRR, no M/R/G appreciated Pulm: CTAB, no wheeze/ronchi/rales appreciated, non-labored breathing on RA Abd: soft, NT, ND : lizama draining bloody urine, opaque Ext: warm, dry, no edema. Neuro: A&Ox3, CN II-XII intact, nonfocal, conversant I/O: No intake/output data recorded. Labs: Recent Results (from the past 72 hour(s)) Prealbumin Result Value Ref Range Prealbumin 22 20 - 40 mg/dL Basic Metabolic Panel (non-fasting) Result Value Ref Range Glucose Lvl 129 65 - 199 mg/dL BUN 18 10 - 20 mg/dL Creatinine 0.78 (L) 0.80 - 1.50 mg/dL Sodium 141 135 - 145 mmol/L Potassium 4.0 3.5 - 5.0 mmol/L Chloride 103 98 - 107 mmol/L CO2 26 22 - 31 mmol/L Anion Gap 12 5 - 15 mmol/L Calcium 10.1 8.5 - 10.5 mg/dL Estimated GFR 92 >=60 mL/min/1.73 m?? Hemogram Result Value Ref Range WBC 10.6 (H) 4.0 - 9.5 x10(3)/mcL RBC 4.50 (L) 4.58 - 5.54 x10(6)/mcL Hemoglobin 14.5 13.7 - 16.5 g/dL Hematocrit 43.6 40.5 - 48.5 % MCV 96.9 (H) 82.9 - 93.1 fL MCH 32.2 (H) 27.5 - 32.1 pg MCHC 33.3 32.0 - 35.7 g/dL Platelets 229 145 - 357 x10(3)/mcL RDWSD 46.9 (H) 36.0 - 45.0 fL RDWCV 13.2 11.4 - 13.8 % MPV 10.4 7.6 - 12.9 fL nRBC % Auto 0.0 % nRBC Abs Auto 0.000 0.000 - 0.000 x10(3)/mcL EKG 12 Lead Result Value Ref Range Ventricular rate 67 BPM Atrial Rate 67 BPM P-R Interval 162 ms QRS Duration 78 ms Q-T Interval 444 ms QTC Calculated (Bezet) 469 ms Calculated P Newbern 29 degrees Calculated R Newbern 47 degrees Calculated T Newbern 105 degrees INTERPRETATION Normal sinus rhythm Low voltage QRS Borderline ECG When compared with ECG of 20-MAY-2023 12:46, Premature atrial complexes are no longer Present Confirmed by MD Garcia Jon ([id number]) on 07/16/2023 4:38:58 PM Carotid Duplex, Unilateral Result Value Ref Range VB Text Report Department: Vascular Surgery Lab Patient: [id number] (MIRNA FLORES) CPT: 76121 Referring Physician: LORENA CHANDRA Indications: Intra-op left CEA Findings: Left PSV (cm/s) EDV (cm/s) ICA/CCA %Stenosis ICA Proximal 73 23 2.9 <15% CCA Distal 25 6 External Carotid Artery 187 60 Interpretation: LEFT: Widely patent carotid bifurcation with no evidence of flap or residual stenosis. Significantly improved compared to the preoperative exam. Significant improvement compared to previous exam. Previous Carotid Studies: Date RIGHT ICA Stenosis PSV Ratio LEFT ICA Stenosis PSV Ratio 80-99% 571 8.20 16-49% 177 2.40 Current Exam n/a n/a n/a <15% 73 2.90 VB Text Report End of Report Assessment: Mirna Flores is a 77 y.o. male who is Day of Surgery s/p L CEA. He is currently in stable condition and recovering well postoperatively. He has hematuria s/p catheterization, continues to drain adequately through lizama, urology aware, recommending strict UOP following and UA. Plan: OK for diet SBP 100-140 Plan to restart DAPT tomorrow Maintain lizama Follow-up UA Remainder of plan as previously dictated by vascular surgery Crispin Andujar MD, PGY-1 07/16/2023 Vascular Surgery Service Pager [phone] * Michaela Stuart RN - 07/16/2023 8:29 PM EDT 1899: Report received from MORIAH Sebastian; care assumed. Pt is A&Ox4, VSS on RA. Vasc resident aware of red urine output, no new orders. 1999: Phase 2 criteria met. Right art line removed. Neuro is WDL. Pt has palpable DP & PT pulses in both lower extremities. 2209: Report given to [facility]SU RN Lior. * Bobbi Jorge RN - 07/16/2023 4:02 PM EDT 155- Arrived from OR in bed. Attached to monitors and alarms set appropriately for patient. Lizama in place draining pink tinged urine. Left neck dressing covered with guaze and transparent tape, scant amount of moist drainage area marked. Neuro intact except pupils being 1mm different, anesthesia made aware. MORIAH aGle for break coverage. 1700- Neuro remains intact, VSS on RA. Pt's at bedside. 1730- Vascular team rounding on pt. 1899- Report given to MORIAH Bailey. MD Torrey rounding on pt- made aware of red urine from lizama. documented in this encounter H&P Notes * Melisa Monroe MD - 07/12/2023 12:20 PM EDT Vascular Surgery History and Physical HPI: Mirna Flores is a 77 year old male with PMH significant for afib (on Xarelto, s/p ablation), HLD, HTN, CAD (s/p PCI 2006, BRENDA distal LAD x2/distal LCX x2, Ramus x1), brain abscess (s/p surgery and antibiotics, 2014) who was admitted in May of this year with multiple episodes right handed numbness and weakness after cataract surgery. The patient's numbness has resolved but he continues to have some residual right hand weakness. He underwent imaging which showed a left hemispheric stroke with a 50-60% calcified left carotid lesion. Notably, he also has a 99% asymptomatic right carotid stenosis as well. He presents today for left carotid endarterectomy. Previous Vascular Surgery Interventions: None Pertinent Cardiovascular Medications: Antiplatelet ASA 81 Beta Blockade Lipid agent Atorvastatin Anticoagulation Xarelto Other Anticoagulation: name: Xarelto, indication: afib, duration: intermediate manager Antiplatelet: name(s): ASA , duration: intermediate manager Patient Active Problem List Diagnosis Acute ischemic stroke Stroke Premature ventricular beats Overview Note: Zio (December 2018): 8.6% burden, 2 morphologies prevalent Zio (August 2020): 11.8% burden, 2 morphologies prevalent Status post ablation of atrial fibrillation ASCVD (arteriosclerotic cardiovascular disease) Overview Note: PCI in 2005 at [facility]: stents to LAD x2, LCx x2, ramus Atrial fibrillation Overview Note: Diagnosed 2017, on rivaroxaban, s/p DCCV Hypertension HLD (hyperlipidemia) Chest pain Brain abscess There are no hospital problems to display for this patient. Active Non-Hospital Problems Diagnosis Acute ischemic stroke Stroke Premature ventricular beats Status post ablation of atrial fibrillation ASCVD (arteriosclerotic cardiovascular disease) Atrial fibrillation Hypertension HLD (hyperlipidemia) Chest pain Brain abscess Review of Systems: A full review encompassing at least 10 organ systems including general, neuro, pulm, cardiac, GI, , MSK, Endo, and Psych was negative other than listed in the HPI. Past Medical History: Past Medical History: Diagnosis Date A-fib Brain abscess CAD (coronary artery disease) HLD (hyperlipidemia) HTN (hypertension) Past Surgical History: Past Surgical History: Procedure Laterality Date PRO CARDIOVERSION ELECTIVE ARRHYTHMIA EXTERNAL N/A 08/28/2022 CARDIOVERSION-ELECTIVE (WRVU 2.25) performed by Fred Maki MD at [facility] MAIN OR PRO STEREO BX/ASPIR/EXCIS, INTRACRANIAL LESN Right 01/27/2015 @STEREOTACTIC BX,ASP, OR EXC.-INTRACRANIAL LESION, W/SCAN performed by Jose Small MD at [facility] MAIN OR PRO STEREOTACTIC CPTR ASSTD PX CRANIAL, INTRADURAL Right 01/27/2015 STEREOTACTIC COMPUTER-ASSTD NAVIGATIONAL CRANIAL INTRADURAL performed by Jose Small MD at [facility] MAIN OR Functional Status: Lives at home, able to complete activities of daily living Social Hx: Social History Socioeconomic History Marital status: Spouse name: Not on file Number of children: Not on file Years of education: Not on file Highest education level: Not on file Occupational History Not on file Tobacco Use Smoking status: Never Smokeless tobacco: Never Vaping Use Vaping Use: Never used Substance and Sexual Activity Alcohol use: Yes Alcohol/week: 14.0 standard drinks Types: 14 Shots of liquor per week Comment: 2-3 drinks/night Drug use: No Sexual activity: Not on file Other Topics Concern Not on file 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 Social Determinants of Health Financial Resource Strain: Not on file Food Insecurity: Not on file Transportation Needs: Not on file Physical Activity: Not on file Housing Stability: Not on file Family Hx: Negative for Thrombosis, Bleeding Disorders, Family History Problem Relation Age of Onset Alzheimer Disease Brother Medications: No current facility-administered medications on file prior to encounter. Current Outpatient Medications on File Prior to Encounter Medication Sig Dispense Refill enoxaparin (Lovenox) 100 mg/mL Syringe Inject 100 mg subcutaneously 2 times daily. clotrimazole (LOTRIMIN) 1 % Cream Apply topically as needed. atorvastatin (Lipitor) 80 mg tablet Take 1 tablet by mouth every evening. 90 tablet 3 aspirin 81 mg chewable tablet Take 81 mg by mouth daily. 30 tablet 3 lisinopriL (Zestril) 20 mg Tablet Take 20 mg by mouth daily. timoloL (Timoptic) 0.5 % Drops Place 1 drop into the left eye 2 times daily. OneToClearMyMail Verio test strips Strip USE TO CHECK BLOOD GLUCOSE DAILY DIRECTED rivaroxaban (Xarelto) 20 mg tablet Take 1 tablet by mouth daily. 90 tablet 3 nitroGLYcerin (NITROSTAT) 0.4 mg Tablet, Sublingual Place 1 tablet under the tongue every 5 minutesas needed for Chest pain. 90 tablet 12 Allergies: Allergies Allergen Reactions Bee Pollen Anaphylaxis Bee Stings Use to carry Epi Pen, Penicillins Angioedema States as a child, had facial, lip swelling. Shellfish Containing Products Nausea And Vomiting SHRIMP only. Blotches, swelling, Shrimp Ceftriaxone Other (See Comments) leukopenia Keppra [Levetiracetam] Other (See Comments) leukopenia Simvastatin Other (See Comments) Myalgia Physical Exam: Vital Signs: Temp: [36.1 ??C (97 ??F)] Heart Rate: [68] Resp: [18] BP: (149)/(69) SpO2: [98 %] Heart Rate from SpO2: -- BMI: Weight: 95.3 kg (210 lb) BMI (Calculated): 26.96 BMI Classification: Over Weight General: alert, cooperative, NAD, resting comfortably HEENT: normocephalic, atraumatic CVS: Regular rate and rhythm Pulm: Breathing comfortably on room air Abd: soft, non tender, non distended, no pulsatile masses Ext: RLE: No edema. Skin warm and pink. No tissue loss. Brisk capillary refill. LLE: No edema. Skin warm and pink. No tissue loss. Brisk capillary refill. Neuro: Grossly nonfocal, moving all extremities. Endorsing some mild paresthesias of fourth and fifth fingers Labs: Last 3 wbc, hgb, hct plt Recent Labs 07/16/23 0952 05/21/23 0038 05/20/23 1155 WBC 10.6* 10.1* 10.6* HGB 14.5 14.1 15.2 HCT 43.6 41.2 45.0 PLATELET 229 223 248 Last 3 Lytes Recent Labs 07/16/23 0952 05/21/23 0038 05/20/23 1155 NA 141 139 140 K 4.0 4.0 4.4 CL 103 105 105 CO2 23 24 BUN 18 17 17 CREATININE 0.78* 0.70* 0.80 Last 3 Coags No results for input(s): PT, INR, PTT in the last 168 hours. Vascular Imaging: CTA carotids 05/21/23 IMPRESSION 1. Severe, greater than 90% stenosis of the proximal right internal carotid artery. 2. Moderate, approximately 50% stenosis of the proximal left ICA. 3. At least mild stenosis of the origin of the nondominant right vertebral artery, which is occluded at its distal cervical and proximal intradural segments. Vascular Studies: Carotid Duplex 05/21/23: Department: Vascular Surgery Lab Patient: [id number] (MIRNA FLORES) CPT: 97860 Referring Physician: NIKHIL BARNETT Indications: Left hemispheric stroke Findings: ICA Proximal, Right PSV (cm/s): 571 EDV (cm/s): 173 ICA/CCA: 8.2 Plaque Structure: Echogenic Plaque Surface: Irregular %Stenosis: 80-99% ICA Distal, Right PSV (cm/s): 84 EDV (cm/s): 28 ICA/CCA: 1.2 CCA Distal, Right PSV (cm/s): 70 EDV (cm/s): 14 %Stenosis: <50% CCA Proximal, Right PSV (cm/s): 71 EDV (cm/s): 8 External Carotid Artery, Right PSV (cm/s): 116 EDV (cm/s): 0 %Stenosis: <50% Vertebral, Right PSV (cm/s): 29 EDV (cm/s): 0 Direction of Flow: Antegrade ICA Proximal, Left PSV (cm/s): 177 EDV (cm/s): 49 ICA/CCA: 2.4 Plaque Structure: Echogenic Plaque Surface: Irregular %Stenosis: 16-49% ICA Distal, Left PSV (cm/s): 113 EDV (cm/s): 36 ICA/CCA: 1.5 CCA Distal, Left PSV (cm/s): 73 EDV (cm/s): 16 %Stenosis: <50% CCA Proximal, Left PSV (cm/s): 81 EDV (cm/s): 16 External Carotid Artery, Left PSV (cm/s): 100 EDV (cm/s): 5 %Stenosis: <50% Vertebral, Left PSV (cm/s): 58 EDV (cm/s): 20 Direction of Flow: Antegrade Interpretation: RIGHT: There is smooth plaque in the common carotid artery causing <50% stenosis by B-mode. There is bulky irregular plaque in the proximal internal carotid artery causing 80-99% stenosis when compared to the more distal internal carotid artery. The bifurcation level is in the mid neck. LEFT: There is irregular plaque in the common carotid artery causing <50% stenosis by B-mode. There is bulky irregular plaque in the proximal internal carotid artery causing 16-49% stenosis when compared to the more distal internal carotid artery. The bifurcation level is in the mid neck. Vertebral Artery Data: Patent right vertebral artery with resistant waveforms suggesting more distal obstruction/occlusion. Patent left vertebral artery with normal antegrade Doppler waveforms and velocities. EKG/Echo/Cath: 05/21/23 Echo: Interpretation Summary - Technically limited study. - Normal biventricular function with mildly increased left ventricular wall thickness. LVEF is 65% without wall motion abnormalities. - The mitral valve is severely calcified; cannot rule out small, mobile elements. There is moderate to severe calcific mitral valve stenosis (mean gradient 7 mmHg at 60 bpm, MVA ~1 cm2 by continuity). There is mild mitral valve regurgitation. - The ascending aorta is moderately dilated in size to 4.3 cm. - There is no prior study for comparison. Assessment and Plan: Mirna Flores is a 77 year old male who was recently admitted with a left sidedstroke and was found to have bilateral carotid stenosis. As his left side is symptomatic, we will plan for a left carotid endarterectomy today, with plan for likely future right revascularization if the artery remains patent. The risks and benefits of the procedure have been explained to the patient and he has elected to proceed. 07/16/2023 11:54 AM documented in this encounter Miscellaneous Notes * Initial Assessments - Domi Prabhakar RN - 07/17/2023 11:56 AM EDT Office of Care Management Initial Assessment/Discharge Note Medical record reviewed. Plan of care and patient status discussed with direct care Registered Nurse and/or Care Team in multidisciplinary rounds. Reason for Hospitalization: Surgery Present on Admission: Left carotid artery stenosis Hospitalizations Within the Past 30 Days: no previous admission in last 30 days Patient receiving hospital care under Inpatient status. Admission order reviewed. 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: [address] MGD MEDICARE Payor: [place] MEDICARE / Plan: [facility] / Product Type: *No Product type* / Secondary Insurance: N/A ; Prescription Coverage: Preferred Pharmacy: [id number] - [place], [place] - [address] [facility] [address] [facility] [address] [facility] - [place], [place] - [address] [facility] [address] [facility] [id number] Advance Care Planning: Attempt Cardiopulmonary Resuscitation - Inpatient Received - Patients address: [address] [facility] [address] Social & Family Supports: Extended Emergency Contact Information Primary Emergency Contact: FloresKisha Address: [address] [place] [address] [facility] Mobile Relation: Spouse Secondary Emergency Contact: Michelle Giron [facility] Mobile Relation: Child Transportation Anticipated: private car Assessment: Patient with no apparent RNCM/SW needs at this time. No housing, transportation, insurance, resources concerns identified at this time. Supports in place to achieve a safe post-hospital transition. No identified barriers to accessing necessary care and/or follow-up after discharge. Plan: Patient to d/c to home via private car when medically ready. Registered Nurse [employer] will continue to follow patient???s progress and remain available if situation changes for coordination of care, psychosocial support and/or discharge planning. Office of Care Management Domi Prabhakar RN, BSN Case Management Work [phone] * Consult Note - Akila Herman MD - 07/16/2023 7:33 PM EDT UROLOGY CONSULT NOTE Reason for Consultation: hematuria 2/2 traumatic catheterization Referring Provider: Lorena Chandra MD History of Present Illness: Mirna Flores is a 77 y.o. male with a history of Afib, HTN, CAD s/p PCI (2006), stroke, and carotid stenosis s/p left carotid endarterectomy today c/b traumatic straight cath at the end of the casewith subsequent Coude Lizama placement. Urology is consulted for hematuria. He has never seen a Urologist. Reports nocturia. Denies pain. AC: Osvaldo, ASA81 Past Medical History: Past Medical History: Diagnosis Date A-fib Brain abscess CAD (coronary artery disease) HLD (hyperlipidemia) HTN (hypertension) Past Surgical History: Past Surgical History: Procedure Laterality Date PRO CARDIOVERSION ELECTIVE ARRHYTHMIA EXTERNAL N/A 08/28/2022 CARDIOVERSION-ELECTIVE (WRVU 2.25) performed by Fred Maki MD at [facility] MAIN OR PRO STEREO BX/ASPIR/EXCIS, INTRACRANIAL LESN Right 01/27/2015 @STEREOTACTIC BX,ASP, OR EXC.-INTRACRANIAL LESION, W/SCAN performed by Jose Small MD at [facility] MAIN OR PRO STEREOTACTIC CPTR ASSTD PX CRANIAL, INTRADURAL Right 01/27/2015 STEREOTACTIC COMPUTER-ASSTD NAVIGATIONAL CRANIAL INTRADURAL performed by Jose Small MD at [facility] MAIN OR Family History: Family History Problem Relation Age of Onset Alzheimer Disease Brother Social History: Social History Socioeconomic History Marital status: Spouse name: Not on file Number of children: Not on file Years of education: Not on file Highest education level: Not on file Occupational History Not on file Tobacco Use Smoking status: Never Smokeless tobacco: Never Vaping Use Vaping Use: Never used Substance and Sexual Activity Alcohol use: Yes Alcohol/week: 14.0 standard drinks Types: 14 Shots of liquor per week Comment: 2-3 drinks/night Drug use: No Sexual activity: Not on file Other Topics Concern Not on file 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 Social Determinants of Health Financial Resource Strain: Not on file Food Insecurity: Not on file Transportation Needs: Not on file Physical Activity: Not on file Housing Stability: Not on file Nonsmoker Allergies: Allergies Allergen Reactions Bee Pollen Anaphylaxis Bee Stings Use to carry Epi Pen, Penicillins Angioedema States as a child, had facial, lip swelling. Shellfish Containing Products Nausea And Vomiting SHRIMP only. Blotches, swelling, Shrimp Ceftriaxone Other (See Comments) leukopenia Keppra [Levetiracetam] Other (See Comments) leukopenia Simvastatin Other (See Comments) Myalgia Review of Systems: As indicated in HPI, otherwise negative. Physical Exam: Temp: [36 ??C (96.8 ??F)-36.5 ??C (97.7 ??F)] Heart Rate: [56-72] Resp: [13-23] BP: (122-164)/(57-89) SpO2: [92 %-100 %] Heart Rate from SpO2: [56 bpm-69 bpm] No intake/output data recorded. No intake/output data recorded. General: NAD CV: regular rate Pulm: nonlabored breathing on room air Abd: soft, nontender, nondistended : Lizama draining thin red urine without clots Neuro: no focal deficits Ext: warm and well-perfused Labs: Recent Labs 07/16/23 0952 05/21/23 0038 05/20/23 1155 WBC 10.6* 10.1* 10.6* HGB 14.5 14.1 15.2 HCT 43.6 41.2 45.0 PLATELET 229 223 248 Recent Labs 07/16/23 0952 05/21/23 0038 05/20/23 1155 NA 141 139 140 K 4.0 4.0 4.4 CL 103 105 105 CO2 26 23 24 BUN 18 17 17 CREATININE 0.78* 0.70* 0.80 GLUCOSE 129 99 121 CALCIUM 10.1 9.5 9.5 10.2 MAGNESIUM -- 0.88 0.91 PHOS -- 3.7 3.3 Component Value Date/Time SPGRAVITYUA 1.020 07/29/2018 1338 PHUADIP 5.0 07/29/2018 1338 PROTEINUADIP Negative 07/29/2018 1338 GLUCOSEU Negative 07/29/2018 1338 KETONESUA Negative 07/29/2018 1338 UROBILIUADIP Normal 07/29/2018 1338 BLOODUADIP Negative 07/29/2018 1338 NITRATEUA Negative 07/29/2018 1338 LEUKOESTERUA Negative 07/29/2018 1338 WBCUA 1 01/27/2015 1523 BILIRUBINUA Negative 07/29/2018 1338 Imaging: none relevant Assessment: Mirna Flores is a 77 y.o. male with hematuria after traumatic catheterization. Lizama draining thin red without clots. Very likely hematuria 2/2 trauma. Given pt age and risk factors will also obtain UA and request outpatient f/u as discussed with Dr. Bender. Recommendations: - please obtain UA - ok to flush Lizama PRN - Lizama per primary team - outpatient hematuria work up requested: UA, cysto, RBUS and noncon CT Plan discussed with Dr. Bender, Urology Attending. x Consult service will continue to follow patient. Recommendations are above, please page if further consultation required. Akila Herman MD 07/16/2023 [id number] * Op Note - Melisa Monroe MD - 07/16/2023 6:07 PM EDT [facility] [place] Patient Name: Mirna Flores : [id number] MR#: [id number] Case Date: 07/16/2023 Surgeon: Surgeon(s) and Role: * Lorena Chandra MD - Primary * Melisa Monroe MD - Resident - Assisting Preoperative diagnosis: Bilateral Carotid Stenosis Postoperative diagnosis: Bilateral Carotid Stenosis Procedure(s) (LRB): @ENDARTERECTOMY, CAROTID, VERTEBRAL,SUBCLAVIAN W\WO PATCH GRAFT (WRVU 21.16) (Left) Left carotid endarterectomy Findings: Ulcerated appearing focal plaque. Gleason shunt used throughout duration of case. Completion ultrasound performed with no dissection flap or elevated velocities noted at proximal or distal endpoints. Neuro intact at completion of case. The patient was straight cathed at the completion of the case with bright red blood return - catheter removed and replaced with coude catheter which initially put out pink tinged clear urine with air bubbles that turned to dark red blood in recovery area, urology to be consulted. Anesthesia: General Estimated Blood Loss: 100 mL Specimens removed during surgery: None Drains: None Surgical Closure: Primary Closure - skin incision is completely closed without any wires, sofie, drains or other devices Disposition: awakened from anesthesia, extubated and taken to the recovery room in a stable condition, having suffered no apparent untoward event. Condition: doing well without problems, doing well with some problems : see above re: Lizama (Please see the Surgical Encounter Summary for any Implant and Specimen details pertinent to this patient.) HPI/Surgical Indications: Mirna Flores is a 77 year old male with PMH significant for afib (on Xarelto, s/p ablation), HLD, HTN, CAD (s/p PCI 2006, BRENDA distal LAD x2/distal LCX x2, Ramus x1), brain abscess (s/p surgery and antibiotics, 2014) who was admitted in May of this year with multiple episodes right handed numbness and weakness after cataract surgery. The patient's numbness has resolved but he continues to have some residual right hand weakness. He underwent imaging which showed a left hemispheric stroke with a 50- 60% calcified left carotid lesion. Notably, he also has a 99% asymptomatic right carotid stenosis as well. He presents today for left carotid endarterectomy. Procedure Description: After informed consent was obtained the patient was brought back to the operating room and placed supine on the OR table. General anesthesia was induced and the patient was intubated with an ETT. Additional support lines (arterial line, PIVs) were placed. Preoperative antibiotics were given. A timeout was performed. Attention was then turned to the patient's left neck, which was prepped and draped in the standard sterile fashion. A longituidnal incision was made along the anterior border of the sternocleidomastoid. The subcutaneous tissue and platysma were divided using a combination of blunt, sharp, and electrocautery dissection. The sternocleidomastoid and internal jugular vein were retracted laterally to expose the bifurcation. The common carotid artery, external carotid artery, and internal carotid artery were each circumferentially dissected and encircled with vessel loops. Lidocaine was applied to the carotid bulb. The vagus and hypoglossal nerves were identified and preserved. Satisfied with our exposure, systemic heparin was given. Next, the internal, common and external carotid arteries were clamped. An arteriotomy was performed in a longitudinal fashion with an 11 blade. This was extended onto the commoncarotid artery proximally and the internal carotid artery distally using Pott's scissors. A Gleason shunt was placed into the common and internal carotid artery in standard fashion. Using a [place] elevator, endarterectomy of the common carotid and internal carotid arteries was performed. Eversion endarterectomy of the external carotid artery was performed and the carotid plaque was removed. The distal internal carotid artery plaque was feathered off, leaving a smooth endpoint. Once this was remove d, the endarterectomy site was inspected for loose arterial wall tissue that was removed with fine forceps. The endarterectomy endpoints were inspected to ensure that they were adequate. Tacking sutures were placed proximally and distally. Once we were satisfied with our dissection endarterectomy, bovine pericardial patch angioplasty was performed in a standard fashion with 6-0 Prolene. Once thiswas nearly complete, the shunt was removed; and the arteries were flushed to expel any air or debris. The patch angioplasty was then completed, and the carotid artery was re-perfused. Completion duplex ultrasonography was performed with the above findings. Once we were satisfied with our results onultrasound, protamine was administered to reverse the heparin. Hemostasis was achieved with thrombin-soaked gelfoam. The wound was then closed by reapproximating the sternocleidomastoid muscle in onelayer followed by the platysma in a second layer. Skin was closed with 4-0 Monocryl followed by Dermabond and then a dry sterile dressing. The patient was awoken from anesthesia, noted to be neurologi coco intact and transferred to the Recovery Room in stable condition. Dr. Chandra, was present and scrubbed for the entire procedure. Surgical Infection Prevention Bundle Used? N/A Associated attestation - Lorena Chandra MD - 07/21/2023 7:29 AM EDT Attestation: Case Date: 07/16/2023 - 07/17/2023 I was present and I participated during the entire procedure (does not need to include opening and closing). LORENA CHANDRA MD 07/21/2023 documented in this encounter Plan of Treatment Upcoming Encounters Date Type Department Care Team (Late st Contact Info) Description 09/08/2024 9:40 AM EDT Office Visit Cardiology at [address] [place] [address] Gonzales Torres MD [facility] [place] [address] documented as of this encounter Procedures Procedure Name Priority Date/Time Associated Diagnosis Comments URINALYSIS MICROSCOPIC EXAM Routine 07/16/2023 9:57 PM EDT URINE HOLD Routine 07/16/2023 9:57 PM EDT URINALYSIS WITH REFLEX CULTURE Routine 07/16/2023 9:57 PM EDT URINE CULTURE Routine 07/16/2023 9:57 PM EDT CAROTID DUPLEX, UNILATERAL Routine 07/16 2:41 PM EDT Carotid stenosis, asymptomatic, bilateral Thromboendartectmy Neck, Neck Incis ([id number]) 07/16/2023 12:34 PM EDT Pre-op testing Carotid stenosis, asymptomatic, bilateral HEMOGRAM STAT 07/16/2023 9:52 AM EDT Pre-op testing Carotid stenosis, asymptomatic, bilateral PREALBUMIN STAT 07/16/2023 9:52 AM EDT Pre-op testing Carotid stenosis, asymptomatic, bilateral BASIC METABOLIC PANEL STAT 07/16/2023 9:52 AM EDT Pre-op testing Carotid stenosis, asymptomatic, bilateral ENDART, CAROTID, VERTEBRAL,SUBCLAVIAN W\WO PATCH GRAFT, BY NECK INCIS Routine 07/16/2023 6:47 AM EDT Pre-op testing Carotid stenosis, asymptomatic, bilateral IMPLANTABLE DEVICES SCAN 023 12:00 AM EDT documented in this encounter Results * US Retroperitoneal Complete (09/09/2023 12:43 PM EDT) Anatomical Region Laterality Modality Abdomen Ultrasound 09/09/2023 12:2 4 PM EDT Impressions 09/09/2023 1:50 PM EDT 1. ??Normal sonographic appearance of the bilateral kidneys. No renal calculi, mass or hydronephrosis. 2. ??Mildly trabeculated bladder contour suggestive of bladder outlet obstruction. I have personally reviewed the image(s) and the resident's interpretation and agree with the findings, David Madera MD at 09/09/2023 1:43 PM Thank you for letting us participate in the care of this patient. If you are a health care provider and have any questions regarding this report, please contact the number above. For patients who have questions, please contact the health pediatric acute care unit nurse that requested your imaging first. ? David Madera, Staff Physician Electronically Signed Final Report ?? 09/09/2023 01:50 pm Narrative 09/09/2023 1:50 PM EDT Renal ? (Signed Final 09/09/2023 01:50 pm) PATIENT INFO: ID #: ? [id number] ?: ??[birth year] (77 yrs)(M) Name: ? MIRNA FLORES ? Visit Date: 09/09/2023 12:24 pm PERFORMED BY: Attending: ?Santy HOOD, David John Resident: ? Marvin Huntley MD Performed By: ? Kiki Zamora RDMS Referred By: ?LORENA CHANDRA Location: ? [place] SERVICE(S) PROVIDED: URETRO - Retroperitoneal Complete - [id number] ? [id number] INDICATIONS: gross hematuria COMPARISON: CT: Abdomen/Pelvis 09/09/2023 RIGHT KIDNEY: Size (cm) ?L: ??11.4 Cortical Thickness: ?Normal Cortical Echogenicity: ?? Normal Hydronephrosis: ?No sonographic evidence LEFT KIDNEY: Size (cm) ?L: ??11.5 Cortical Thickness: ?Normal Cortical Echogenicity: ?? Normal Hydronephrosis: ?No sonographic evidence URINARY BLADDER: Pre-void (cm) ? L: ??9.0 ? AP: ??4.9 ? TV: ??6.3 Vol (ml): ?145.5 Comment: ?Partially distended, trebeculated bladder contour. Procedure Note David Madera MD - 09/09/2023 Renal (Signed Final 09/09/2023 01:50 pm) PATIENT INFO: ID #: [id number] : [birth year] (77 yrs)(M) Name: MIRNA FLORES Visit Date: 09/09/2023 12:24 pm PERFORMED BY: Attending: David Madera MD Resident: Marvin Huntley MD Performed By: Kiki Zamora RDMS Referred By: LORENA CHANDRA Location: [place] SERVICE(S) PROVIDED: URETRO - Retroperitoneal Complete - [id number] INDICATIONS: gross hematuria COMPARISON: CT: Abdomen/Pelvis 09/09/2023 RIGHT KIDNEY: Size (cm) L: 11.4 Cortical Thickness: Normal Cortical Echogenicity: Normal Hydronephrosis: No sonographic evidence LEFT KIDNEY: Size (cm) L: 11.5 Cortical Thickness: Normal Cortical Echogenicity: Normal Hydronephrosis: No sonographic evidence URINARY BLADDER: Pre-void (cm) L: 9.0 AP: 4.9 TV: 6.3 Vol (ml): 145.5 Comment: Partially distended, trebeculated bladder contour. IMPRESSION 1. Normal sonographic appearance of the bilateral kidneys. No renal calculi, mass or hydronephrosis. 2. Mildly trabeculated bladder contour suggestive of bladder outlet obstruction. I have personally reviewed the image(s) and the resident's interpretation and agree with the findings, David Madera MD at 09/09/2023 1:43 PM Thank you for letting us participate in the care of this patient. If you are a health care provider and have any questions regarding this report, please contact the number above. For patients who have questions, please contact the health pediatric acute care unit nurse that requested your imaging first. David Madera, Staff Physician Electronically Signed Final Report 09/09/2023 01:50 pm Lorena Chandra MD IMG US GEN ORDERABLE S * (ABNORMAL) Urinalysis with reflex Culture (09/09/2023 10:16 AM EDT) Glucose, Urine Dipstick Negative Negative mg/dL [facility] Protein, Urine Dipstick Trace(A) Negative mg/dL [facility] Bilirubin, Urine Dipstick Negative Negative mg/dL [facility] Comment: Clinical correlation required for positive Urine Bilirubin results as false positive may occur with some drugs and drug related products. If a false positive is suspected a serum total bilirubin should be considered if clinically indicated. Urobilinogen, Urine Dipstick Normal Normal mg/dL [facility] pH, Urn (dipstick) 5.0 5.0 - 8.0 [facility] Blood, Urine Dipstick Trace(A) Negative mg/dL [facility] Ketone, Urine Dipstick Trace(A) Negative mg/dL [facility] Nitrite, Urine Dipstick Negative Negative [facility] Leukocytes, Urine Dipstick Small(A) Negative mcL [facility] Appearance, Urine Dipstick Cloudy(A) Clear [facility] Specific [place] Urine Automated 1.027 1.005 - 1.030 [facility] Color, Urine Dipstick Yellow Yellow [facility] Reflex to Culture Yes [facility] Clean Catch Urine 09/09/2023 10:16 AM EDT 09/09/2023 10:19 AM EDT Narrative Resulting Agency Comment Spec In Lab Lorena Chandra MD URINE ORDERABLES [facility] [place] [address] * CT Abdomen & Pelvis wo Contrast (09/09/2023 9:52 AM EDT) Anatomical Region Laterality Modality Abdomen, Pelvis Computed Tomogra phy Impressions 09/09/2023 11:12 AM EDT 1. ??No hydronephrosis or urolithiasis. 2. ??Prostatomegaly with thickened bladder wall suggestive of chronic bladder outlet obstruction. 3. ??Stable dilatation of the right common iliac artery and infrarenal aorta. I have personally reviewed the image(s) and the resident's interpretation and agree with the findings, Lia Lucas MD at 09/09/2023 11:12 AM Thank you for letting us participate in the care of this patient. ??If you are a health care provider and have any questions regarding this report, please contact the number below. ??For patients who have questions please contact the health pediatric acute care unit nurse that requested your imaging first. ? Narrative 09/09/2023 11:12 AM EDT EXAMINATION: CT ABDOMEN AND PELVIS WO CONTRAST CLINICAL HISTORY: Hematuria, gross/macroscopic TECHNIQUE: Helical CT of the abdomen and pelvis without intravenous contrast. Oral contrast was not administered. Multiplanar reformatted images were generated. COMPARISON: CT abdomen and pelvis 08/14/2023 from outside hospital FINDINGS: The absence of intravenous contrast limits the evaluation of solid viscera and vasculature. Lower chest: No basilar consolidation or effusion. Mild cardiomegaly. Extensive coronary artery calcifications. There is also calcification of the mitral annulus. Liver: Normal size and attenuation. Bile ducts: Nondilated. Gallbladder: No calcified stones. Normal caliber wall. Pancreas: Normal attenuation without ductal dilatation. Spleen: Normal size. Adrenals: Normal. Right kidney/ureter: No collecting system dilation or calculi. Vascular calcifications are present. Left kidney/ureter: No collecting system dilation or calculi. Vascular calcifications are present. Urinary Bladder: Mild circumferential mural thickening. No perivesicular inflammation. No bladder or proximal urethral calculi. Vasculature: Extensively calcified abdominal aorta with infrarenal ectasia to 29 mm. Stable dilatation of the right common iliac artery to 21 mm. Ectasia of the left internal iliac artery to 16 mm has increased slightly. Lymph Nodes: No pathologically enlarged nodes. Bowel: Nondilated, no wall thickening. Sigmoid diverticulosis without wall thickening or adjacent inflammation. Peritoneum and retroperitoneum: No free fluid or loculated fluid collection. No pneumoperitoneum. No mesenteric inflammation. Abdominal wall: Normal. Reproductive organs: Prostatomegaly with coarse intraprostatic calcifications. Osseous structures: No suspicious lesions. Severe L5/S1 degenerative disc disease and moderate L4/5 and L5/S1 facet arthropathy. Procedure Note Lia Lucas MD - 09/09/2023 EXAMINATION: CT ABDOMEN AND PELVIS WO CONTRAST CLINICAL HISTORY: Hematuria, gross/macroscopic TECHNIQUE: Helical CT of the abdomen and pelvis without intravenouscontrast. Oral contrast was not administered. Multiplanar reformatted images were generated. COMPARISON: CT abdomen and pelvis 08/14/2023 from outside hospital FINDINGS: The absence of intravenous contrast limits the evaluation of solid visceraand vasculature. Lower chest: No basilar consolidation or effusion. Mild cardiomegaly.Extensive coronary artery calcifications. There is also calcification of themitral annulus. Liver: Normal size and attenuation. Bile ducts: Nondilated. Gallbladder: No calcified stones. Normal caliber wall. Pancreas: Normal attenuation without ductal dilatation. Spleen: Normal size. Adrenals: Normal. Right kidney/ureter: No collecting system dilation or calculi. Vascular calcifications are present. Left kidney/ureter: No collecting system dilation or calculi. Vascular calcifications are present. Urinary Bladder: Mild circumferential mural thickening. No perivesicular inflammation. No bladder or proximal urethral calculi. Vasculature: Extensively calcified abdominal aorta with infrarenal ectasiato 29 mm. Stable dilatation of the right common iliac artery to 21 mm. Ectasiaof the left internal iliac artery to 16 mm has increased slightly. Lymph Nodes: No pathologically enlarged nodes. Bowel: Nondilated, no wall thickening. Sigmoid diverticulosis withoutwall thickening or adjacent inflammation. Peritoneum and retroperitoneum: No free fluid or loculated fluidcollection. No pneumoperitoneum. No mesenteric inflammation. Abdominal wall: Normal. Reproductive organs: Prostatomegaly with coarse intraprostaticcalcifications. Osseous structures: No suspicious lesions. Severe L5/S1 degenerativedisc disease and moderate L4/5 and L5/S1 facet arthropathy. IMPRESSION 1. No hydronephrosis or urolithiasis. 2. Prostatomegaly with thickened bladder wall suggestive of chronicbladder outlet obstruction. 3. Stable dilatation of the right common iliac artery and infrarenalaorta. I have personally reviewed the image(s) and the resident's interpretationand agree with the findings, Lia Lucas MD at 09/09/2023 11:12 AM Thank you for letting us participate in the care of this patient. If youare a health care provider and have any questions regarding this report,please contact the number below. For patients who have questions please contactthe health pediatric acute care unit nurse that requested your imaging first. Lorena Chandra MD IMG CT ORDERABLES * Carotid Duplex, Unilateral (08/15/2023 1:01 PM EDT) VB Text Report Department: Vascular Surgery Lab Patient: [id number] (FLORESMIRNA) CPT: 94793 Referring Physician: LORENA CHANDRA ?? Indications: S/P LT CEA ? Patency Findings: ICA Proximal, Left ? PSV (cm/s): 166 ? EDV (cm/s): 54 ? ICA/CCA: 3.0 ? Plaque Structure: Echogenic ? Plaque Surface: Smooth ? %Stenosis: <15% ICA Distal, Left ? PSV (cm/s): 60 ? EDV (cm/s): 19 ? ICA/CCA: 1.1 CCA Distal, Left ? PSV (cm/s): 56 ? EDV (cm/s): 17 ? %Stenosis: <50% CCA Proximal, Left ? PSV (cm/s): 52 ? EDV (cm/s): 16 External Carotid Artery, Left ? PSV (cm/s): 283 ? EDV (cm/s): 48 ? %Stenosis: >50% Vertebral, Left ? PSV (cm/s): 70 ? EDV (cm/s): 18 ? Direction of Flow: Antegrade Interpretation: LEFT: There is plaque in the proximal internal carotid artery causing <15% stenosis when compared to the more distal internal carotid artery. The bifurcation level is in the mid neck. Significant improvement compared to previous pre-operative exam exam on 05/21/23. Vertebral Artery Data: Patent left vertebral artery with normal antegrade Doppler waveforms and velocities. Previous Carotid Studies: Date ?RIGHT ICA Stenosis ??PSV ?? Ratio ?? LEFT ICA Stenosis ?? PSV ?? Ratio ? 80-99% ? 571 ?? 8.20 ? 16-49% ? 177 ?? 2.40 ? n/a ?n/a ?? n/a ?<15% ? 73 ?2.90 Current Exam ? n/a ?n/a ?? n/a ?16-49% ? 166 ?? 3.00 Electronically Signed by: LORENA CHANDRA on 2023-08-17 08:53:33 PM [facility] VB Text Report End of Report [facility] 08/15/2023 1:01 PM EDT Lorena Chandra MD VASCULAR ORDERABLES [facility] * Urine culture (07/16/2023 9:57 PM EDT) Urine Culture 1,000-9,000 cfu/ml Insignificant growth [facility] Indwelling Catheter Urine 07/16/2023 9:57 PM EDT 07/17/2023 1:49 AM EDT Narrative Resulting Agency Comment Spec In Lab Crispin Andujar MD MICROBIOLOGY - GEN ERAL ORDERABLES Performing Organization Address City/[facility] Co de Phone Number [facility] [place] [address] * (ABNORMAL) Urinalysis Microscopic Exam (07/16/2023 9:57 PM EDT) RBC, Urine >100(H) 0 - 3 /HPF [facility] Comment:Interpret with cauti on, manual microscopic results are from an unspun specimen. WBC, Urine >100(H) 0 - 3 /HPF [facility] Comment:Interpret with cauti on, manual microscopic results are from an unspun specimen. Bacteria, Urine Occasiona l(A) None /HPF [facility] Comment:Interpret with cauti on, manual microscopic results are from an unspun specimen. Indwelling Catheter Urine 07/16/2023 9:57 PM EDT 07/16/2023 10:24 PM EDT Narrative Resulting Agency Comment Spec In Lab Crispin Andujar MD URINE ORDERABLES Performing Organization Address City/[facility]/ZIP Co de Phone Number [facility] [place] [address] * Urine Hold (07/16/2023 9:57 PM EDT) Hold, Urine Sample in lab. [facility] Urine Urine / Unknown 07/16/2023 9 :57 PM EDT 07/16/2023 10:24 PM EDT Crispin Andujar MD URINE ORDERABLES [facility] [place] [address] * (ABNORMAL) Urinalysis with reflex Culture (07/16/2023 9:57 PM EDT) Glucose, Urine Dipstick See Note Negative [facility] Comment: Unable to perform chemistry testing due to interfering substances, grossly bloody. Protein, Urine Dipstick See Note Negative [facility] Comment: Unable to perform chemistry testing due to interfering substances, grossly bloody. Bilirubin, Urine Dipstick See Note Negative [facility] Comment: Unable to perform chemistry testing due to interfering substances, grossly bloody. Clinical correlation required for positive Urine Bilirubin results as false positive may occur with some drugs and drug related products. If a false positive is suspected a serum total bilirubin should be considered if clinically indicated. Urobilinogen, Urine Dipstick See Note Normal [facility] Comment: Unable to perform chemistry testing due to interfering substances, grossly bloody. pH, Urn (dipstick) See Note 5.0 - 8.0 [facility] Comment: Unable to perform chemistry testing due to interfering substances, grossly bloody. Blood, Urine Dipstick See Note Negative [facility] Comment: Unable to perform chemistry testing due to interfering substances, grossly bloody. Ketone, Urine Dipstick See Note Negative [facility] Comment: Unable to perform chemistry testing due to interfering substances, grossly bloody. Nitrite, Urine Dipstick See Note Negative [facility] Comment: Unable to perform chemistry testing due to interfering substances, grossly bloody. Leukocytes, Urine Dipstick See Note Negative [facility] Comment: Unable to perform chemistry testing due to interfering substances, grossly bloody. Appearance, Urine Dipstick Turbid(A) Clear [facility] Comment: Unable to perform chemistry testing due to interfering substances, grossly bloody. Specific [place] Urine Automated See Note 1.005 - 1.030 [facility] Comment: Unable to perform chemistry testing due to interfering substances, grossly bloody. Color, Urine Dipstick Red(A) [facility] Comment: Unable to perform chemistry testing due to interfering substances, grossly bloody. Reflex to Culture Yes [facility] Comment: Unable to perform chemistry testing due to interfering substances, grossly bloody. Indwelling Catheter Urine 07/16/2023 9:57 PM EDT 07/16/2023 10:24 PM EDT Narrative Resulting Agency Comment Spec In Lab Lorena Chandra MD URINE ORDERABLES [facility] [place] [address] * Carotid Duplex, Unilateral (07/16/2023 2:41 PM EDT) VB Text Report Department: Vascular Surgery Lab Patient: [id number] (MIRNA FLORES) CPT: 01181 Referring Physician: LORENA CHANDRA ?? Indications: ??Intra-op left CEA Findings: Left ? PSV (cm/s) ??EDV (cm/s) ??ICA/CCA ??%Stenosis ?? ICA Proximal ? 73 ?23 ?2.9 ??<15% ? CCA Distal ? 25 ? 6 ? External Carotid Artery ? 187 ?60 ? Interpretation: LEFT: Widely patent carotid bifurcation with no evidence of flap or residual stenosis. Significantly improved compared to the preoperative exam. Significant improvement compared to previous exam. Previous Carotid Studies: Date ?RIGHT ICA Stenosis ??PSV ?? Ratio ?? LEFT ICA Stenosis ?? PSV ?? Ratio ? 80-99% ? 571 ?? 8.20 ? 16-49% ? 177 ?? 2.40 Current Exam ? n/a ?n/a ?? n/a ?<15% ? 73 ?2.90 Electronically Signed by: LORENA CHANDRA on 2023-07-17 07:13:47 AM [facility] VB Text Report End of Report [facility] 07/16/2023 2:41 PM EDT Lorena Chandra MD VASCULAR ORDERABLES [facility] * (ABNORMAL) Hemogram (07/16/2023 9:52 AM EDT) White Blood Cell 10.6(H) 4.0 - 9.5 x10(3)/mc L [facility] Red Blood Cell 4.50(L) 4.58 - 5.54 x10(6)/mc L [facility] Hemoglobin 14.5 13.7 - 16.5 g/dL [facility] Hematocrit 43.6 40.5 - 48.5 % [facility] Mean Cell Volume 96.9(H) 82.9 - 93.1 fL [facility] Mean Cell Hemoglobin 32.2(H) 27.5 - 32.1 pg [facility] Mean Cell Hemoglobin Concentration 33.3 32.0 - 35.7 g/dL [facility] Platelet 229 145 - 357 x10(3)/mc L [facility] RDW Standard Deviation 46.9(H) 36.0 - 45.0 fL [facility] RDW coefficient of variation 13.2 11.4 - 13.8 % [facility] Mean Platelet Volume 10.4 7.6 - 12.9 fL [facility] NRBC% auto 0.0 % [facility] NRBC Absolute 0.000 0.000 - 0.000 x10(3)/mc L [facility] Blood 07/16/2023 9:52 AM EDT 07/16/2023 10:02 AM EDT Narrative Resulting Agency Comment Spec In Lab Lorena Chandra MD HEMATOLOGY ORDERABLE S [facility] [place] [address] * (ABNORMAL) Basic Metabolic Panel (non-fasting) (07/16/2023 9:52 AM EDT) Glucose 129 65 - 199 mg/dL [facility] Comment:Diabetes: >=200 mg/d L plus symptoms Blood Urea Nitrogen 18 10 - 20 mg/dL [facility] Creatinine 0.78(L) 0.80 - 1.50 mg/dL [facility] Sodium 141 135 - 145 mmol/L [facility] Potassium 4.0 3.5 - 5.0 mmol/L [facility] Comment: Please note: ??Patients with WBC >100,000 may have falsely elevated Potassium levels. ??For accurate Potassium quantification in these patients send serum separator tube (gold top) for subsequent determinations. ??Contact the Clinical Chemistry Laboratory if there are any questions. Chloride 103 98 - 107 mmol/L [facility] Carbon Dioxide 26 22 - 31 mmol/L [facility] Anion Gap 12 5 - 15 mmol/L [facility] Calcium 10.1 8.5 - 10.5 mg/dL [facility] Est Glomerular Filtration Rate 92 >=60 mL/min/1. 73 m?? [facility] Comment: This patient's estimated GFR was calculated using the 2020 CKD-EPI equation. The estimated GFR can vary from [...] mass and symptoms in addition to eGFR. Blood 07/16/2023 9:52 AM EDT 07/16/2023 10:02 AM EDT Narrative Resulting Agency Comment Spec In Lab Lorena Chandra MD CHEMISTRY ORDERABLES [facility] [place] [address] * Prealbumin (07/16/2023 9:52 AM EDT) Prealbumin 22 20 - 40 mg/dL [facility] Comment: Prealbumin levels are generally lower in the pediatric population; adult concentrations are usually attained near puberty. Blood 07/16/2023 9:52 AM EDT 07/16/2023 10:02 AM EDT Narrative Resulting Agency Comment Spec In Lab Lorena Chandra MD CHEMISTRY ORDERABLES Performing Organization Address [facility] Co de Phone Number [facility] [place] [address] * SCAN DOC: IMPLANTABLE DEVICES (07/16/2023 12:00 AM EDT) Narrative 07/16/2023 12:00 AM EDT Ordered by an unspecified provider. Scanning Provider MEDIA MGR SCAN EXT O RDR/RSLT documented in this encounter Visit Diagnoses Diagnosis Left carotid artery stenosis- Primary Occlusion and stenosis of carotid artery without mention of cerebral infarction Pre-op testing Preoperative examination, unspecified Carotid stenosis, asymptomatic, bilateral Cerebrovascular accident (CVA) due to other mechanism Acute ischemic stroke Unspecified cerebral artery occlusion with cerebral infarction Hematuria, unspecified type Pre-op testing Preoperative examination, unspecified Carotid stenosis, asymptomatic, bilateral Hematuria, unspecified type Hematuria, unspecified type documented in this encounter Admitting Diagnoses Diagnosis Left carotid artery stenosis Occlusion and stenosis of carotid artery without mention of cerebral infarction documented in this encounter Administered Medications Inactive Administered Medications - up to 3 most recent administrations Medication Order MAR Action Action Date Dose Rate Site aspirin chewable tablet 81 mg 81 mg, Oral, DAILY, First dose on Fri07/17/23 at 0900, Until Discontinued, Routine Given 07/17/2023 8:23 AM EDT 81 mg BUpivacaine (pf) (Marcaine) (5 mg/mL) 0.5% injection PRN, Starting on Fri07/16/23 at 1334, Until Fri07/17/23 at 1518, Intra-Operative (Intra-Procedure), Routine Given 07/16/2023 1:34 PM EDT 2 mLs clopidogreL (Plavix) tablet 75 mg 75 mg, Oral, DAILY, First dose on Fri07/17/23 at 0900, Until Discontinued, Routine Given 07/17/2023 8:23 AM EDT 75 mg gelatin adsorbable 12-7 mm sponge PRN, Starting on Fri07/16/23 at 1334, Until Tash 07/17/23 at 1518, Intra-Operative (Intra-Procedure) Given 07/16/2023 1:34 PM EDT 1 each heparin (porcine) (1,000 units/mL) injection PRN, Starting on Fri07/16/23 at 1333, Until Tash 07/17/23 at 1518, Intra-Operative (Intra-Procedure), Routine Given 07/16/2023 1:49 PM EDT 8,000 Units Given 07/16/2023 1:33 PM EDT 2,500 Units ondansetron (pf) (Zofran) (2 mg/mL) injection 4 mg 4 mg, Intravenous, EVERY 8 HOURS PRN, Starting on Fri07/16/23 at 2143, Until Tash 07/17/23 at 1518, Nausea, If multiple antiemetics are ordered, use ondansetron first, prochlorperazine second, and metoclopramide third. PO Preferred. If patient unable to take PO, may give IV if ordered. May repeat times one in 30 minutes if ineffective. Maximum daily dose = 24 mg/24 hours ondansetron (Zofran) tablet 4 mg 4 mg, Oral, EVERY 8 HOURS PRN, Starting on Fri07/16/23 at 2143, Until Tash 07/17/23 at 1518, Nausea, Vomiting, If multiple antiemetics are ordered, use ondansetron first. PO Preferred. If patient unable to take PO, may give IV if ordered. May repeat times one in 45 minutes if ineffective. , Routine thrombin (Bovine) (Thrombinar) kit PRN, Starting on Fri07/16/23 at 1332, Until Tash 07/17/23 at 1518, Intra-Operative (Intra-Procedure) Given 07/16/2023 1:32 PM EDT 20,000 Uni ts documented in this encounter Active and Recently Administered Medications Times are shown in EDT. Scheduled Medication Order 07/15/2023 07/16/2023 07/17/2023 acetaminophen (Tylenol) tablet 1,000 mg (COMPLETED) 1,000 mg, Oral, ONCE, 1 dose, On Fri07/16/23 at 1230, Administer with a SIP of water only. Maximum dose of acetaminophen is 4,000 mg from all sources in 24 hours., Day of Surgery (Day of Procedure), Routine 1216 (Given - Provider: Bell Matos RN) aspirin chewable tablet 81 mg 81 mg, Oral, DAILY, First dose on Tash 07/17/23 at 0900, Until Discontinued, Routine 0823 (Given - Provid er: Malena Marin RN) atorvastatin (Lipitor) tablet 80 mg 80 mg, Oral, EVERY EVENING, First dose on Fri07/16/23 at 2200, Until Discontinued, Routine clopidogreL (Plavix) tablet 75 mg 75 mg, Oral, DAILY, First dose on Fri07/17/23 at 0900, Until Discontinued, Routine 08 (Given - Provid er: Malena Marin RN) hydrALAZINE (Apresoline) (20 mg/mL) injection 5 mg (COMPLETED) 5 mg, Intravenous, ONCE, 1 dose, On Fri07/16/23 at 1615, For SBP >140mmHg. Use after labetalol. , PACU Recovery 1606 (Given - Provider: Shahla Hawthorne RN) Continuous Medication Order 07/15/2023 07/16/2023 07/17/2023 lactated ringers infusion (CANCELED) 1,000 mL, at 100 mL/hr, Intravenous, CONTINUOUS, Starting on Fri07/16/23 at 1230, Until Fri07/16/23 at 2153, Day of Surgery (Day of Procedure) 1230 (New Bag - Provider: Lorraine Matos RN)1233 (Paused - Provider: Nguyen Pandya - Comment: Switch to gravity)1234 (Restarted - Provider: Nguyen Pandya)1521 (Anesthesia Volume Adjustment - Provider: Josh Hernandez CRNA) PRN Medication Order 07/15/2023 07/16/2023 07/17/2023 acetaminophen (Tylenol) tablet 500 mg 500 mg, Oral, EVERY 4 HOURS PRN, Starting on Fri07/16/23 at 1619, Until Tash 07/17/23 at 1518, Pain, For Mild Pain (1-3) or Fever., Maximum dose of acetaminophen is 4000 mg from all sources in 24 hours. When ordered for pain, acetaminophen should be given even when other ordered pain medications are indicated., Routine BUpivacaine (pf) (Marcaine) (5 mg/mL) 0.5% injection (CANCELED) PRN, Starting on Fri07/16/23 at 1334, Until Tash 07/17/23 at 1518, Intra-Operative (Intra-Procedure), Routine 1334 (Given - Provider: Lorena Chandra MD - Comment: placed on steirle field) gelatin adsorbable 12-7 mm sponge (CANCELED) PRN, Starting on Fri07/16/23 at 1334, Until Tash 07/17/23 at 1518, Intra-Operative (Intra-Procedure) 1334 (Given - Provider: Lorena Chandra MD) heparin (porcine) (1,000 units/mL) injection (CANCELED) PRN, Starting on Fri07/16/23 at 1333, Until Tash 07/17/23 at 1518, Intra-Operative (Intra-Procedure), Routine 1333 (Given - Provider: Lorena Chandra MD - Comment: placed on sterile field, 2500 units mixed with 500ml of NS)1349 (Given - Provider: Nguyen Pandya) hydrALAZINE (Apresoline) (20 mg/mL) injection 10 mg 10 mg, Intravenous, EVERY 1 HOUR PRN, Starting on Fri07/16/23 at 1619, Until Tash 07/17/23 at 1518, High Blood Pressure, for blood pressure greater than 140 mmHg for maximum of 2 doses, then bee HOOD, Use if 2 doses of labetaloL ineffective in achieving goal., Routine labetaloL (Normodyne) (5 mg/mL) injection solution 10 mg 10 mg, Intravenous, EVERY 1 HOUR PRN, Starting on Fri07/16/23 at 1619, Until Tash 07/17/23 at 1518, High Blood Pressure, for SBP greater than 140 mmHg, hold for HR less than 60 beats per minute for maximum of 2 doses, then bee HOOD., May repeat 10 mg in 15 minutes once if SBP goal not achieved, Routine ondansetron (pf) (Zofran) (2 mg/mL) injection 4 mg(Linked Group 1) 4 mg, Intravenous, EVERY 8 HOURS PRN, Starting on Fri07/16/23 at 2143, Until Tash 07/17/23 at 1518, Nausea, If multiple antiemetics are ordered, use ondansetron first, prochlorperazine second, and metoclopramide third. PO Preferred. If patient unable to take PO, may give IV if ordered. May repeat times one in 30 minutes if ineffective. Maximum daily dose = 24 mg/24 hours ondansetron (Zofran) tablet 4 mg(Linked Group 1) 4 mg, Oral, EVERY 8 HOURS PRN, Starting on Fri07/16/23 at 2143, Until Tash 07/17/23 at 1518, Nausea, Vomiting, If multiple antiemetics are ordered, use ondansetron first. PO Preferred. If patient unable to take PO, may give IV if ordered. May repeat times one in 45 minutes if ineffective. , Routine oxyCODONE (Roxicodone) tablet 5-10 mg 5-10 mg, Oral, EVERY 4 HOURS PRN, Starting on Fri07/16/23 at 1619, Until Tash 07/17/23 at 1518, Pain, For Moderate Pain (4-6), Initial dose 5 mg. If pain control not adequate in 60 minutes, give additional 5 mg., Routine thrombin (Bovine) (Thrombinar) kit (CANCELED) PRN, Starting on Fri07/16/23 at 1332, Until Tash 07/17/23 at 1518, Intra-Operative (Intra-Procedure) 1332 (Given - Provider: Lorena Chandra MD - Comment: placed on the sterile field to soak gelfoam) Linked Groups Order Group 1: ondansetron (Zofran) tablet 4 mgJump to med 4 mg, Oral, EVERY 8 HOURS PRN, Starting on Fri07/16/23 at 2143, Until Tash 07/17/23 at 1518, Nausea, Vomiting, If multiple antiemetics are ordered, use ondansetron first. PO Preferred. If patient unable to take PO, may give IV if ordered. May repeat times one in 45 minutes if ineffective. , Routine Or ondansetron (pf) (Zofran) (2 mg/mL) injection 4 mgJump to med 4 mg, Intravenous, EVERY 8 HOURS PRN, Starting on 07/16/23 at 2143, Until Tash 07/17/23 at 1518, Nausea, If multiple antiemetics are ordered, use ondansetron first, prochlorperazine second, and metoclopramide third. PO Preferred. If patient unable to take PO, may give IV if ordered. May repeat times one in 30 minutes if ineffective. Maximum daily dose = 24 mg/24 hours documented in this encounter Care Teams Fish Seiner Relationship Specialty Start Date End Date Mirna Barrera DO [address] [place] [address] PCP - General Family Medicine 07/01/18 documented as of this encounter
--- OUTSIDE RECORDS SUMMARY | 2024-07-21 19:27 | XMS_ITS | Encounter Summary ---
[place] [address] Care Team Providers Care Hooker Off Name Role Phone Camacho Barrera DO Primary Care Provider [phone] Encounter Details Date Type Department Care Team (Late st Contact Info) Description 07/19/2023 Telephone [place] [address] Yu Vergara MD [facility] [place] [address] Social History Tobacco Use Types Packs/Day Years [...] encounter Miscellaneous Notes * Telephone Encounter - Yu Vergara MD - 07/19/2023 12:27 PM EDT Received a call from Camacho Flores who was recently discharged after a left carotid endarterectomy. He called because he was having some minor drainage from his neck incision site that was serosaningous in nature. He denies surrounding erythema, fullness in the neck or purulent drainage. I recommend that he keep the area dry and call with any worsening or new symptoms. Yu Vergara MD Vascular Fellow PGY6 documented in this encounter Plan of Treatment Upcoming Encounters Date Type Department Care Team (Late st Contact Info) Description 09/08/2024 9:40 AM EDT Office Visit Cardiology at [address] [address] Gonzales Torres MD [facility] [place] [address] documented as of this encounter Visit Diagnoses Not on filedocumented in this encounter Care Teams Hooker Off Relationship Specialty Start Date End Date Camacho Barrera DO [address] [place] [address] PCP - General Family Medicine 07/01/18 documented as of this encounter
--- OUTSIDE RECORDS SUMMARY | 2024-07-21 19:27 | XMS_ITS | Encounter Summary ---
Author Organization [facility]ly [facility] [place] [address] Care Team Providers Care Director Banking Name Role Phone Camacho Barrera DO Primary Care Provider [phone] Reason for Visit * Reason Comments Atrial Fibrillation DCCV 05/2023 at [facility] Encounter Details Date Type Department Care Team (Late st Contact Info) Description 08/13/2023 2:00 PM EDT Office Visit Cardiology at [address] [place] [address] Gonzales Torres MD [facility] [place] [address] Persistent atrial fibrillation Social History Tobacco Use [...] Sign Reading Time Taken Comments Blood Pressure 136/76 08/13/2023 2:13 PM EDT Pulse 60 08/13/2023 2:13 PM EDT Temperature - - Respiratory Rate - - Oxygen Saturation - - Inhaled Oxygen Concentration - - Weight 92.1 kg (203 lb) 08/13/2023 2:13 PM EDT Height 188 cm (6' 2) 08/13/2023 2:13 PM EDT Body Mass Index 26.06 08/13/2023 2:13 PM EDT documented in this encounter Progress Notes * Gonzales Torres MD - 08/13/2023 2:00 PM EDT Images from the original note were not included. Clinical Cardiac Electrophysiology Consult Patient ID Camacho Flores [id number] Camacho Flores is following up in the EP clinic, he is a former patient of Dr Nelson Chief Complaint Paroxysmal atrial fibrillation s/p ablation for AF in 2018. History This is a 77 y.o. male following up/being seen in clinic [...] and ablated, given that it has impacted hi exertional tolerance and stamina...' Echo: 05/2023 - LVEF 65%, mitral valve serverely calcified He was doing reaosnably well at the time of his last visit. In May of this year, he was admitted with multiple episodes of hand numbness and had evidence of left hemispheric stroke - he underwent left carotid endarterectomy. Early this month, he was at [facility] initially presenting with back pain and then also found to have rapidly conducted atrial fibrillation in the context of a UTI. A recommendation was made to start digoxin. Since then,he has been doing reasonably well - he has no real awareness of his AF - no palpitations, shortness of breath or chest discomfort. He believes he has had an unusual side effect from Plavix, back pain-he has been asked to stop his Plavix, this apparently resulted in resolution of his back pain, he has just recently restarted to test the hypothesis Problem List Patient Active Problem List Diagnosis Left carotid artery stenosis Acute ischemic stroke Stroke Premature ventricular beats Zio (December 2018): 8.6% burden, 2 morphologies prevalent Zio (August 2020): 11.8% burden, 2 morphologies prevalent Status post ablation of atrial fibrillation ASCVD (arteriosclerotic cardiovascular disease) PCI in 2005 at [facility]: stents to LAD x2, LCx x2, ramus Atrial fibrillation Diagnosed 2017, on rivaroxaban, s/p DCCV Hypertension HLD (hyperlipidemia) Chest pain Brain abscess Review of Systems Review of Systems Constitutional: Positive for malaise/fatigue. Negative for weight gain and weight loss. Cardiovascular: Positive for dyspnea on exertion. Negative for palpitations. Musculoskeletal: Positive for back pain. Meds Current Outpatient Medications Medication Sig Dispense Refill lisinopriL (Zestril) 5 mg tablet Take 5 mg by mouth daily. digoxin (Lanoxin) 125 mcg (0.125 mg) tablet Take 125 mcg by mouth daily. HYDROcodone-acetaminophen (Deerton) 5-325 mg tablet Take by mouth every 6 hours as needed. acetaminophen (Tylenol) 500 mg tablet Take 1 tablet by mouth every 4 hours as needed for Pain (For Mild Pain (1-3) or Fever.). 30 tablet 1 clopidogreL (Plavix) 75 mg tablet Take 1 tablet by mouth daily. 90 tablet 3 clotrimazole (LOTRIMIN) 1 % Cream Apply topically as needed. [employer] Verio test strips Strip USE TO CHECK BLOOD GLUCOSE DAILY DIRECTED atorvastatin (Lipitor) 80 mg tablet Take 1 tablet by mouth every evening. 90 tablet 3 aspirin 81 mg chewable tablet Take 81 mg by mouth daily. 30 tablet 3 rivaroxaban (Xarelto) 20 mg tablet Take 1 tablet by mouth daily. 90 tablet 3 timoloL (Timoptic) 0.5 % Drops Place 1 drop into the left eye 2 times daily. nitroGLYcerin (NITROSTAT) 0.4 mg Tablet, Sublingual Place 1 tablet under the tongue every 5 minutesas needed for Chest pain. 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 Social Determinants of Health Financial Resource Strain: Not on file Food Insecurity: Not on file Transportation Needs: Not on file Physical Activity: Not on file Housing Stability: Not on file Family History Family History Problem Relation Age of Onset Alzheimer Disease Brother Exam Patient Vitals for the past 24 hrs: Pulse BP 08/13/23 1413 60 136/76 Physical Exam Constitutional: Comments: Body mass index is 26.06 kg/m??. HENT: Mouth/Throat: Pharynx: No oropharyngeal exudate. Eyes: Conjunctiva/sclera: Conjunctivae normal. Cardiovascular: Rate and Rhythm: Normal rate. Rhythm irregular. Pulses: Normal pulses. Pulmonary: Effort: Pulmonary effort is normal. Skin: General: Skin is warm. Neurological: General: No focal deficit present. Mental Status: He is alert. Psychiatric: Mood and Affect: Mood normal. I have personally reviewed the ECG: atrial fibrillation - 95 bpm, QRS 80ms, QT 360ms Impression Camacho Flores is seen in the EP clinic for follow-up of his paroxysmal atrial fibrillation. He is a former patient of Dr Nelson. He had an atrial fibrillation ablation (incomplete posterior wall isolation, cavotricuspid isthmus ablation), in 2018. He did well for a number of years after that, but more recently has had episodes of recurrence of atrial fibrillation, one which necessitated cardioversion, which he attributed to effects after a COVID booster. More recently, in the context of an apparent UTI, and back pain he was admitted again with atrial fibrillation and rapid ventricular response. He has now been loaded on digoxin, and is now on a stable dose. He has little to no awareness of his atrial fibrillation, he appears to be well rate controlled. He has a [employer] heart rhythm monitor in place, he has had this on for about 7 days, although it appears to be somewhat 'buggy' in application. This was placed at [facility]. Today he is in atrial fibrillation with a controlled ventricular response. Otherwise he is doing well, Recommendations / Plan A) No changes to meds B) Routine follow up in about 6 months for AF surveillance GONZALES TORRES MD Cardiac Electrophysiology [facility] [place] 40 minutes were spent preparing to see the [...] AM EDT Office Visit Cardiology at [address] [phone] Gonzales Torres MD [facility] [place] [address] documented as of this encounter Visit Diagnoses Diagnosis Persistent atrial fibrillation Atrial fibrillation documented in this encounter Care Teams Director Banking Relationship Specialty Start Date End Date Camacho Barrera DO [address] [place] [address] PCP - General Family Medicine 07/01/18 documented as of this encounter
--- OUTSIDE RECORDS SUMMARY | 2024-07-21 19:27 | XMS_ITS | Encounter Summary ---
[place] [address] Care Team Providers Care Ski Instructor Name Role Phone Camacho Barrera DO Primary Care Provider [phone] Reason for Referral * Diagnostic Test (Routine) - Closed Specialty Diagnoses / Procedures Referred By Mike johnson Referred To Contact Diagnoses Carotid stenosis, asymptomatic, bilateral Procedures Carotid Duplex, Bilateral Brian Fagan APRN [facility] [place] [address] [facility] Vascular Lab [address] [place] [address] Referral ID Status Reason Start Date Expiration Date V isits Requested Visits Authorized [id number] Closed Specialty Service Requested 08/20/2023 08/19/2024 1 1 Encounter Details Date Type Department Care Team (Late st Contact Info) Description 08/20/2023 Orders Only [place] [address] Swapna Keller, ANIMAL SHELTER CLERK Carotid stenosis, asymptomatic, bilateral Social History Tobacco Use Types Packs/Day Years Used Date Smoking Tobacco: Never Smokeless Tobacco: Never Alcohol Use Standard Drinks/Week Comments Yes 14 (1 standard drink = 0.6 oz pu re alcohol) 2-3 drinks/night [facility] Inpatient Questions Answer Date Recorded Does [...] 9:40 AM EDT Office Visit Cardiology at [address] [phone] Gonzales Torres MD [facility] [place] [address] documented as of this encounter Results * Carotid Duplex, Bilateral (09/19/2023 9:59 AM EDT) VB Text Report Department: Vascular Surgery Lab Patient: [id number] (CAMACHO FLORES) CPT: [id number] Referring Physician: BRIAN FAGAN ?? Phone: Indications: [...] bilateral documented in this encounter Care Teams Ski Instructor Relationship Specialty Start Date End Date Camacho Barrera [place] [address] PCP - General Family Medicine 07/01/18 documented as of this encounter
--- OUTSIDE RECORDS SUMMARY | 2024-07-21 19:27 | XMS_ITS | Encounter Summary ---
Author Organization [facility] [place] [address] Care Team Providers Care Power Lineworker Name Role Phone Camacho Barrera DO Primary Care Provider [phone] Encounter Details Date Type Department Care Team (Latest Contact Info) Description 08/14/2023 Travel Social History Tobacco Use Types Packs/Day [...] 9:40 AM EDT Office Visit Cardiology at [address] [place] [address] Gonzales Torres MD [facility] [place] [address] documented as of this encounter Visit Diagnoses Not on filedocumented in this encounter Care Teams Power Lineworker Relationship Specialty Start Date End Date Camacho Barrera DO [address] [place] [address] PCP - General Family Medicine 07/01/18 documented as of this encounter
--- OUTSIDE RECORDS SUMMARY | 2024-07-21 19:27 | XMS_ITS | Encounter Summary ---
[place] [address] Care Team Providers Care Financial Services Associate Name Role Phone Camacho Barrera DO Primary Care Provider Reason for Visit * Consultation (Routine) - Closed Specialty Diagnoses / Procedures Referred By Mike johnson Referred To Contact Vascular Surgery Diagnoses Right-sided extracranial carotid artery stenosis ROUTINE , No studies - Right-sided extracranial carotid artery stenosis , CLOTHESPIN MACHINE OPERATOR / PA / Milagros Vail, TRANSFORMER TESTER [facility] [place] [address] [facility] Surg [address] [place] [address] Referral ID Status Reason Start Date Expiration Date V isits Requested Visits Authorized [id number] Closed Consult, Test & Treat 05/27/2023 05/26/2024 1 1 Encounter Details Date Type Department Care Team (Late st Contact Info) Description 06/20/2023 9:30 AM EDT Office Visit [place] [address] Ramiro Chandra MD [facility] [place] [address] PAD (peripheral artery disease) Social History Tobacco Use Types Packs/Day Years [...] Sign Reading Time Taken Comments Blood Pressure 132/64 06/20/2023 9:21 AM EDT Pulse 52 06/20/2023 9:21 AM EDT Temperature - - Respiratory Rate - - Oxygen Saturation - - Inhaled Oxygen Concentration - - Weight 96.6 kg (213 lb) 06/20/2023 9:11 AM EDT r eported Height 188 cm (6' 2) 06/20/2023 9:11 AM EDT rep orted Body Mass Index 27.35 06/20/2023 9:11 AM EDT documented in this encounter Progress Notes * Berenice Fagan APRN - 06/20/2023 9:30 AM EDT x * Ramiro Chandra MD - 06/20/2023 9:30 AM EDT [facility] staff: I was asked by the patient's primary care physician to see him regarding bilateral carotid disease. Patient is a very pleasant 77-year-old male. Approximately 1 month ago he was found to have a left hemispheric stroke overlying a 50 to 60% calcified left carotid lesion. He had right hand numbness and tingling. This resolved. He also has a critical but asymptomatic right 99% carotid stenosis. His past medical history is significant for coronary disease. He is treated with aspirin and statin. I reviewed his medications. He is a non-smoker nondrinker. He is accompanied by his today. On exam, his carotid upstrokes are equal. He is neurologically intact. Heart is regular lungs are clear. Abdomen is soft. I reviewed his MRA which shows small punctate strokes on the left side. I reviewed his duplex and CTA which also show a 50 calcified left carotid lesion. Assessment: This a very pleasant 77-year-old male. He has a symptomatic left carotid stenosis. We will plan on left carotid endarterectomy in the near future at his convenience. He will remain on dual antiplatelet therapy and high-dose statin therapy. After that we will recheck his right carotid to determine if this needs treatment as well. I held this discussion with the patient and his family. They are in agreement. documented in this encounter Plan of Treatment Upcoming Encounters Date Type Department Care Team (Late st Contact Info) Description 09/08/2024 9:40 AM EDT Office Visit Cardiology at [address] [phone] Gonzales Torres MD [facility] [place] [address] documented as of this encounter Visit Diagnoses Diagnosis PAD (peripheral artery disease) Peripheral vascular disease, unspecified documented in this encounter Care Teams Financial Services Associate Relationship Specialty Start Date End Date Camacho Barrera DO [address] [place] [address] PCP - General Family Medicine 07/01/18 documented as of this encounter
--- OUTSIDE RECORDS SUMMARY | 2024-07-21 19:27 | XMS_ITS | Encounter Summary ---
[place] [address] Care Team Providers Care Mass Spectrometry Manager Name Role Phone Camacho Barrera DO Primary Care Provider [phone] Encounter Details Date Type Department Care Team (Late st Contact Info) Description 08/15/2023 2:15 PM EDT Office [place] [phone] Ramiro Chandra MD [facility] [place] [address] PAD (peripheral artery disease) Social History Tobacco Use Types Packs/Day Years Used Date Smoking Tobacco: Never Smokeless Tobacco: Never Alcohol Use Standard Drinks/Week Comments Yes 14 (1 standard drink = 0.6 oz pu re alcohol) 2-3 drinks/night [facility] Inpatient Questions Answer Date Recorded Does Anyone [...] Sign Reading Time Taken Comments Blood Pressure 127/86 08/15/2023 2:32 PM EDT Pulse 92 08/15/2023 2:32 PM EDT Temperature - - Respiratory Rate - - Oxygen Saturation - - Inhaled Oxygen Concentration - - Weight 90.7 kg (200 lb) 08/15/2023 2:32 PM EDT Height 188 cm (6' 2) 08/15/2023 2:32 PM EDT Body Mass Index 25.68 08/15/2023 2:32 PM EDT documented in this encounter Progress Notes * Ramiro Chandra MD - 08/15/2023 2:15 PM EDT Vasc staff: Carotid disease: Bilateral carotid stenosis LEFT --> symptomatic, CEA 08/2023 RIGHT critical but asymptomatic Interval Hx: Patient returns. He hs no further stroke or TIA. On exam, neck is well healed. Duplex shows the repair on the LEFT is widely patent. Assessment: Doing well s/p LEFT CEA. Will need to re-duplex his RIGHT side, will plan to do this in 1-2 months. RTC in near future with bilateral carotid duplex. Routine warnings. documented in this encounter Plan of Treatment Upcoming Encounters Date Type Department Care Team (Late st Contact Info) Description 09/08/2024 9:40 AM EDT Office Visit Cardiology at [address] [phone] Gonzales Torres MD [facility] [place] [address] documented as of this encounter Visit Diagnoses Diagnosis PAD (peripheral artery disease) Peripheral vascular disease, unspecified documented in this encounter Care Teams Mass Spectrometry Manager Relationship Specialty Start Date End Date Camacho Barrera DO [address] [place] [address] PCP - General Family Medicine 07/01/18 documented as of this encounter
--- OUTSIDE RECORDS SUMMARY | 2024-07-21 19:27 | XMS_ITS | Encounter Summary ---
[place] [address] Care Team Providers Care Concert Manager Name Role Phone Camacho Barrera DO Primary Care Provider [phone] Encounter Details Date Type Department Care Team (Late st Contact Info) Description 06/25/2023 Telephone [place] [address] Sveta Rolle Social History Tobacco Use Types Packs/Day Years Used Date Smoking Tobacco: Never Smokeless Tobacco: Never Alcohol Use Standard Drinks/Week Comments Yes 14 (1 standard drink = 0.6 oz pu re alcohol) 2-3 drinks/night [facility] Inpatient Questions Answer Date Recorded Does [...] encounter Miscellaneous Notes * Telephone Encounter - Sveta Rolle - 06/25/2023 8:23 AM EDT I spoke with Mr. Flores - we have scheduled his Surgery for 07/16/[address] Chandra. Letter sent. Aware of Xarleto hold/Lovenox bridge. documented in this encounter Plan of Treatment Upcoming Encounters Date Type Department Care Team (Late st Contact Info) Description 09/08/2024 9:40 AM EDT Office Visit Cardiology at [address] [address] Gonzales Torres MD [facility] [place] [address] documented as of this encounter Visit Diagnoses Not on filedocumented in this encounter Care Teams Concert Manager Relationship Specialty Start Date End Date Camacho Barrera DO [address] [place] [address] PCP - General Family Medicine 07/01/18 documented as of this encounter
--- OUTSIDE RECORDS SUMMARY | 2024-07-21 19:27 | XMS_ITS | Encounter Summary ---
[place] [address] Care Team Providers Care Spud Sorter Name Role Phone Camacho Barrera DO Primary Care Provider [phone] Encounter Details Date Type Department Care Team (Late st Contact Info) Description 08/14/2023 12:05 AM EDT Ancillary Procedure [place] [phone] Camacho Barrera DO [address] [place] [address] Social History Tobacco Use Types Packs/Day Years Used Date Smoking Tobacco: Never Smokeless Tobacco: Never Alcohol Use Standard Drinks/Week Comments Yes 14 (1 standard drink = 0.6 oz pu re alcohol) 2-3 drinks/night [facility] Inpatient Questions Answer Date Recorded Does Anyone [...] 9:40 AM EDT Office Visit Cardiology at [address] [place] [phone] Gonzales Torres MD [facility] [place] [address] documented as of this encounter Procedures Procedure Name Priority Date/Time Associated Diagnosis Comments FILM LIBRARY STORAGE ONLY CT ABDOMEN AND PELVIS Routine 08/14/2023 12:05 AM EDT documented in this encounter Results * Film Library- Storage Only CT Abdomen & Pelvis (08/14/2023 12:05 AM EDT) Narrative [facility] - 08/15/2023 4:38 AM EDT This exam is auto-finalizing. It's purpose is for storage only. Camacho Barrera DO [facility] FILM LIBRARY ORD ERABLES Performing Organization Address City/State/[facility] Co de Phone Number [place], [place] documented in this encounter Visit Diagnoses Not on filedocumented in this encounter Care Teams Spud Sorter Relationship Specialty Start Date End Date Camacho Barrera DO [address] [place] [address] PCP - General Family Medicine 07/01/18 documented as of this encounter
--- OUTSIDE RECORDS SUMMARY | 2024-07-21 19:27 | XMS_ITS | Encounter Summary ---
[place] [address] Care Team Providers Care Golf Cart Maker Name Role Phone Camacho Barrera DO Primary Care Provider [phone] Reason for Referral * Diagnostic Test (Routine) - New Request Specialty Diagnoses / Procedures Referred By Mike johnson Referred To Contact Diagnoses Carotid stenosis, asymptomatic, bilateral Procedures Carotid Duplex, Bilateral Deandra Tejada APRN [facility] [place] [address] [facility] [address] [address] Referral ID Status Reason Start Date Expiration Date Visits Requested Visits Authorized [id number] New Request Specialty Service Requested 3 09/18/2024 1 1 Encounter Details Date Type Department Care Team (Late st Contact Info) Description 09/19/2023 11:15 AM EDT Office [place] [address] Ramiro Chandra MD [facility] [place] [address] Carotid stenosis, asymptomatic, bilateral Social History Tobacco [...] Sign Reading Time Taken Comments Blood Pressure 122/86 09/19/2023 11:29 AM EDT Pulse 108 09/19/2023 11:29 AM EDT Temperature - - Respiratory Rate - - Oxygen Saturation - - Inhaled Oxygen Concentration - - Weight 90.7 kg (200 lb) 09/19/2023 11:29 AM EDT Height 188 cm (6' 2) 09/19/2023 11:29 AM EDT Body Mass Index 25.68 09/19/2023 11:29 AM EDT documented in this encounter Progress Notes * Deandra Tejada APRN - 09/19/2023 11:15 AM EDT Vascular Clinic Progress Note Reason for visit: f/u carotid duplex Interval history: 77 year old with PMH HTN, HLD, CVA, Afib, carotid stenosis, brain abscess who comes to clinic today for f/u duplex. He has been having short interval f/u for critical stenosis (asymptomatic) R ICA. Denies any stroke TIA symptoms. Feeling well other than low back pain. Continues on Plavix Statin and Rivaroxaban. Prior vascular history: Left CEA 07/16/23 Atherosclerotic Risk Factors: (n) DM (y) HTN (y) CAD (y) Hyperlipidemia (n) Tobacco (y) CVA Patient Active Problem List Diagnosis Code Brain abscess G06.0 ASCVD (arteriosclerotic cardiovascular disease) I25.10 Atrial fibrillation I48.91 Hypertension I10 HLD (hyperlipidemia) E78.5 Chest pain R07.9 Status post ablation of atrial fibrillation Z98.890, Z86.79 Premature ventricular beats I49.3 Acute ischemic stroke I63.9 Stroke I63.9 Left carotid artery stenosis I65.22 Allergies Allergen Reactions Bee Pollen Anaphylaxis Bee Stings Use to carry Epi Pen, Penicillins Angioedema States as a child, had facial, lip swelling. Shellfish Containing Products Nausea And Vomiting SHRIMP only. Blotches, swelling, Shrimp Ceftriaxone Other (See Comments) leukopenia Keppra [Levetiracetam] Other (See Comments) leukopenia Simvastatin Other (See Comments) Myalgia Current Outpatient Medications on File Prior to Visit Medication Sig Dispense Refill lisinopriL (Zestril) 5 mg tablet Take 5 mg by mouth daily. HYDROcodone-acetaminophen (Nada) 5-325 mg tablet Take by mouth every 6 hours as needed. clopidogreL (Plavix) 75 mg tablet Take 1 tablet by mouth daily. 90 tablet 3 clotrimazole (LOTRIMIN) 1 % Cream Apply topically as needed. [employer] Verio test strips Strip USE TO CHECK BLOOD GLUCOSE DAILY DIRECTED atorvastatin (Lipitor) 80 mg tablet Take 1 tablet by mouth every evening. 90 tablet 3 rivaroxaban (Xarelto) 20 mg tablet Take 1 tablet by mouth daily. 90 tablet 3 timoloL (Timoptic) 0.5 % Drops Place 1 drop into the left eye 2 times daily. nitrofurantoin (Macrobid) 100 mg capsule Take 100 mg by mouth 2 times daily. For 7 days digoxin (Lanoxin) 125 mcg (0.125 mg) tablet Take 125 mcg by mouth daily. acetaminophen (Tylenol) 500 mg tablet Take 1 tablet by mouth every 4 hours as needed for Pain (For Mild Pain (1-3) or Fever.). (Patient not taking: Reported on 09/09/2023) 30 tablet 1 aspirin 81 mg chewable tablet Take 81 mg by mouth daily. (Patient not taking: Reported on 09/09/2023) 30 tablet 3 nitroGLYcerin (NITROSTAT) 0.4 mg Tablet, Sublingual Place 1 tablet under the tongue every 5 minutesas needed for Chest pain. (Patient not taking: Reported on 09/19/2023) 90 tablet 12 No current facility-administered medications on file prior to visit. 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 Social Determinants of Health Financial Resource Strain: Not on file Food Insecurity: Not on file Transportation Needs: Not on file Physical Activity: Not on file Housing Stability: Not on file ROS: negative except as noted in HPI Physical Exam: General: NAD, appears well Neuro: Alert and oriented, motor sensory grossly intact Ear, Nose, Throat: No masses or lesions Skin: No lesions or abnormal markings Lungs: CTA Heart: RRR Extremity - [place], warm, no ulceration, brisk capillary refill, no edema Studies: Indications: Carotid stenosis s/p endarterectomy ? change in stenosis Findings: ICA Proximal, Right PSV (cm/s): 346 EDV (cm/s): 124 ICA/CCA: 7.2 Plaque Structure: Echogenic Plaque Surface: Irregular %Stenosis: 70-79% ICA Middle, Right PSV (cm/s): 140 EDV (cm/s): 63 ICA/CCA: 2.9 ICA Distal, Right PSV (cm/s): 79 EDV (cm/s): 25 ICA/CCA: 1.6 CCA Distal, Right PSV (cm/s): 48 EDV (cm/s): 9 %Stenosis: <50% CCA Proximal, Right PSV (cm/s): 51 EDV (cm/s): 13 External Carotid Artery, Right PSV (cm/s): 76 EDV (cm/s): 8 %Stenosis: <50% Vertebral, Right PSV (cm/s): 16 EDV (cm/s): 0 Direction of Flow: Resistive Antegrade ICA Proximal, Left PSV (cm/s): 95 EDV (cm/s): 27 ICA/CCA: 1.7 Plaque Structure: Echogenic Plaque Surface: Smooth %Stenosis: <15% ICA Distal, Left PSV (cm/s): 86 EDV (cm/s): 32 ICA/CCA: 1.6 CCA Distal, Left PSV (cm/s): 55 EDV (cm/s): 19 %Stenosis: <50% CCA Proximal, Left PSV (cm/s): 69 EDV (cm/s): 12 External Carotid Artery, Left PSV (cm/s): 288 EDV (cm/s): 66 %Stenosis: >50% Vertebral, Left PSV (cm/s): 56 EDV (cm/s): 25 Direction of Flow: Antegrade Interpretation: RIGHT: There [...] waveforms and velocities. Previous Carotid Studies: Date RIGHT ICA Stenosis PSV Ratio LEFT ICA Stenosis PSV Ratio 80-99% 571 8.20 16-49% 177 2.40 n/a n/a n/a <15% 73 2.90 n/a n/a n/a <15% 166 3.00 Current Exam 70-79% 346 7.20 <15% 95 1.70 Assessment/Plan: 77 year old with PMH HTN, HLD, CVA, Afib, carotid stenosis, brain abscess who comes to clinic todayfor f/u duplex. He is doing well, no stroke/TIA symptoms. Duplex today reveals <15% stenosis Left ICA. Right ICAshows improvement when compared to previous imaging. R ICA now 70-79% stenosis, PSV now 346 (prev 571), Ratio now 7.20 (prev 8.20). Recommend continuing Plavix and Rivaroxaban and Statin. Will reviewwith Dr. Chandra but will likely have short interval f/u in next 2-3 months with repeat duplex. I will call patient if plan changes. Reviewed standard warning s/s. Deandra Tejada, MSN, ALIGNING INSPECTOR Vascular Surgery * Ramiro Chandra MD - 09/19/2023 11:15 AM EDT Please see Ms. Tejada's note for full details. Pleasantly Mr. Rasheed previously critical right carotid stenosis has receded somewhat. It is now subcritical. We will follow this carefully. He will come back in 6 months for duplex. The left side endarterectomy looks widely patent. He remains asymptomatic. He is on maximal medical therapy. He is agreement with this plan. He will return in 6 months with carotid duplex. Thank you for sending him in consultation. documented in this encounter Plan of Treatment Upcoming Encounters Date Type Department Care Team (Late st Contact Info) Description 09/08/2024 9:40 AM EDT Office Visit Cardiology at [address] [place] [id number] Gonzales Torres MD [facility] [address] documented as of this encounter Results * Carotid Duplex, Bilateral (12/11/2023 1:18 PM EST) VB Text Report Department: Vascular Surgery Lab Patient: [id number] (CAMACHO FLORES) CPT: 88280 Referring Physician: DEANDRA TEJADA ?? Indications: f/u [...] EST Deandra Tejada APRN VASCULAR ORDERABLE S Performing Organization Address City/State/[facility] Co de Phone Number VASCUBASE documented in this encounter Visit Diagnoses Diagnosis Carotid stenosis, asymptomatic, bilateral documented in this encounter Care Teams Golf Cart Maker Relationship Specialty Start Date End Date Camacho Barrera DO [address] [place] [address] PCP - General Family Medicine 07/01/18 documented as of this encounter
--- OUTSIDE RECORDS SUMMARY | 2024-07-21 19:27 | XMS_ITS | Encounter Summary ---
[place] [address] Care Team Providers Care Shingle Weaver Name Role Phone Camacho Barrera DO Primary Care Provider [phone] Reason for Visit * Auth/Cert (Routine) Specialty Diagnoses / Procedures Referred By Mike johnson Referred To Contact Diagnoses Occlusion and stenosis of bilateral carotid arteries Encounter for other preprocedural examination Bilateral Carotid Stenosis Procedures PRO THROMBOENDARTECTMY NECK, NECK INCIS @ENDARTERECTOMY, CAROTID, VERTEBRAL,SUBCLAVIAN W\WO PATCH GRAFT (WRVU 21.16) Ramiro Chandra MD [facility] [address] [facility] Referral ID Status Reason Start Date Expiration Date Visits Re quested Visits Authorized [id number] 1 1 Encounter Details Date Type Department Care Team (Late st Contact Info) Description 07/16/2023 12:35 PM EDT Anesthesia Event [place] [phone] Dave Phipps MD [facility] [place] [address] Ugo Magana MD [facility] [place] [address] Anesthesia Record Procedure Summary Procedure Name Responsible Anesthesiologist Anesthesia Start Time Anesthesia Stop Time @ENDARTERECTOMY, CAROTID, VERTEBRAL,SUBCLAVIA N W\WO PATCH GRAFT (WRVU 21.16) (Left: Neck) Dave Phipps MD 07/16/23 1235 07/16/23 1550 Events Date Time Event Comment 07/16/2023 1148 1234 AN Verify 1235 Start 1235 An Start Data 1240 An Induction 1242 An Intubation 1253 Anesthesia Ready 1322 Procedure Start 1358 Vascular Clamp ON 1536 Extubation/LMA Out 1548 an stop data 1549 Recovery or ICU Handoff Sandee ent care was transferred to the destination unit staff after review of the patient's medical history, current anesthetic/surgical status and plan, according to the Provider Handoff Checklist. 1550 Stop Meds Name Total fentaNYL 100 mcg IV Lidocaine 100 mg Propofol 150 mg Rocuronium 80 mg PHENYLephrine 320 mcg Ondansetron 4 mg Dexamethasone 8 mg PHENYLephrine INF 5,590 mcg Propofol INF 767.17 mg Clindamycin 600 mg heparin (porcine) (1,000 units/mL) injec tion 8,000 Units Protamine 50 mg lactated ringers infusion 800 mL Sodium Chloride 0.9% 800 mL * Agents Name O2 * Blood No blood administrations on file. Lines, Drains, and Airways Type Details Placement Removal Incision 07/16/23; 1330; Left ; neck; vertical 07/16/23 1330 by Sydni Nash RN (RETIRED) Peripheral IV Line - Single Lumen 07/16/23; 1230; metacarpal vein (top of hand), right; [id number]-mlolze catheter system; 20 gauge, 1 in length; intradermal injection, age-appropriate response; 07/17/23; 1235 07/16/23 1230 by Bell Matos RN 07/17/23 1235 by Malena Marin RN ETT Mask Ventilation: Ea sy (1); ETT Type: Cuffed, Oral; ETT Size: 7.5 mm; Mac Blade: 4; Notes: Asleep, Pre-O2, Stylette; Attempts: 1; Laryngoscopy Grade: 2; ETT Placement Verified By: Auscultation, Capnometry, Visual; Secured at Teeth: 23 cm; Inserted by: SOURAV Cantor; Removal Date: 07/16/23; Removal Time: 15307/16/23 1242 by Nguyen Pandya 07/16/23 1536 by Josh Hernandez CRNA Arterial Line 07/16/23; 1251; radi al artery, right; 20 gauge; continuous blood pressure monitoring; 07/16/23; 202407/16/23 1251 by Nguyen Pandya 07/16/232024 by Michaela Stuart, MORIAH (RETIRED) Peripheral IV Line - Single Lumen 07/16/23; 1252; 18 gauge; 07/17/23; 1230 07/16/23 1252 by Nguyen Pandya 07/17/23 1230 by Malena Marin RN documented in this encounter Social History Tobacco Use Types Packs/Day Years [...] on file documented as of this encounter OR Notes * Anesthesia Postprocedure Evaluation - Dave Phipps MD - 07/16/2023 5:02 PM EDT Department of Anesthesiology Post-procedure Note Patient: Camacho Flores Procedure Summary Date: 07/16/23 Room / Location: [facility] OR [address] [place] [address] MAIN OR Anesthesia Start: 1235 Anesthesia Stop: 1550 Procedure: @ENDARTERECTOMY, CAROTID, VERTEBRAL,SUBCLAVIAN W\WO PATCH GRAFT (WRVU 21.16) (Left: Neck) Diagnosis: Pre-op testing Carotid stenosis, asymptomatic, bilateral (Bilateral Carotid Stenosis) Surgeons: Ramiro Chandra MD Responsible Provider: Dave Phipps MD Anesthesia Type: general ASA Status: 3 All Anesthesia Providers: Anesthesiologist: Dave Phipps MD GASOLINE CATALYST OPERATOR: Josh Hernandez CRNA Student Nurse Spinner Hydraulic: Nguyen Pandya Vitals Value Taken Time BP 139/67 07/16/23 1700 Temp 36.4 ??C (97.5 ??F) 07/16/23 1645 Pulse 60 07/16/23 1701 Resp 18 07/16/23 1701 SpO2 92 % 07/16/23 1701 Pain Level 0 07/16/23 1645 Vitals shown include unvalidated device data. Patient Location: PACU/[facility] Level of Consciousness: Awake and Alert Pain Management: Satisfactory Analgesia PONV: None Cardiovascular Status: Hypertension (received treatment) Respiratory Status: At Baseline and Room Air Postoperative Fluid Status: Intravascular EUvolemia Possible Anesthetic Complications: NONE apparent at time of evaluation Final Primary Anesthesia Type: General (The anesthetic type performed was the same as planned.) Comments: No apparent anesthetic complications. Tolerated procedure well. No complaints at this time. Received hydralazine for target SBP 100-140. Dave Phipps MD * Anesthesia Preprocedure Evaluation - Dave Phipps MD - 07/16/2023 11:47 AM EDT Pre-Anesthesia Evaluation for: Camacho Flores a 77 y.o. male. Procedure(s): @ENDARTERECTOMY, CAROTID, VERTEBRAL,SUBCLAVIAN W\WO PATCH GRAFT (WRVU 21.16) Patient Active Problem List Diagnosis Date Noted Acute ischemic stroke 05/20/2023 Stroke 05/20/2023 Premature ventricular beats 09/11/2022 Status post ablation of atrial fibrillation 10/20/2018 ASCVD (arteriosclerotic cardiovascular disease) 07/26/2018 Atrial fibrillation 07/26/2018 Hypertension 07/26/2018 HLD (hyperlipidemia) 07/26/2018 Chest pain 07/26/2018 Brain abscess 01/31/2015 Past Medical History: Diagnosis Date A-fib Brain abscess CAD (coronary artery disease) HLD (hyperlipidemia) HTN (hypertension) Past Surgical History: Procedure Laterality Date PRO CARDIOVERSION ELECTIVE ARRHYTHMIA EXTERNAL N/A 08/28/2022 CARDIOVERSION-ELECTIVE (WRVU 2.25) performed by Fred Maki MD at [facility] MAIN OR PRO STEREO BX/ASPIR/EXCIS, INTRACRANIAL LESN Right 01/27/2015 @STEREOTACTIC BX,ASP, OR EXC.-INTRACRANIAL LESION, W/SCAN performed by Jose Small MD at [facility] MAIN OR PRO STEREOTACTIC CPTR ASSTD PX CRANIAL, INTRADURAL Right 01/27/2015 STEREOTACTIC COMPUTER-ASSTD NAVIGATIONAL CRANIAL INTRADURAL performed by Jose Small MD at [facility] MAIN OR Social History Tobacco Use Smoking status: Never Smokeless tobacco: Never Substance Use Topics Alcohol use: Yes Alcohol/week: 14.0 standard drinks Types: 14 Shots of liquor per week Comment: 2-3 drinks/night Social History Substance and Sexual Activity Drug Use No Allergies Allergen Reactions Bee Pollen Anaphylaxis Bee Stings Use to carry Epi Pen, Penicillins Angioedema States as a child, had facial, lip swelling. Shellfish Containing Products Nausea And Vomiting SHRIMP only. Blotches, swelling, Shrimp Ceftriaxone Other (See Comments) leukopenia Keppra [Levetiracetam] Other (See Comments) leukopenia Simvastatin Other (See Comments) Myalgia Medications: MAR and/or home medications have been reviewed. Physical Exam: Preprocedure Vitals Current as of 07/15/23 1547 No BP, pulse, respiration, SpO2, or temperature recorded. Height: Weight: BMI: IBW: Airway Assessment: Mallampati: II TM distance: >3 FB Neck ROM: full Cardiovascular Assessment: Rhythm: regular Rate: normal Pulmonary Assessment: breath sounds clear to auscultation Dental Assessment: - normal exam Misc Assessment: IV access: Peripheral line Value Time User 4AT TOTAL Score: 0 05/20/2023 11:09 AM Jimbo Montoya, GEOVANNYP Anesthesia Plan: ASA 3 general, with a(n) intravenous induction Camacho Flores is a 77 y.o. male presenting for left carotid endarterectomy. S/p stroke 1 month agowithout residual deficit. Bilateral carotid stenosis (80-99% on right, <50% on left). Right vertebral with some obstruction, left vertebral patent. 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 Echo 05/2023 showing moderate-severe mitral stenosis (MG 7, MVA 1 cm^2). Normal biventricular function, EF 65%. Functional status limited by neuro deficits but able to slowly walk >2 flights of stairs without chest pain or SOB. No symptoms of heart failure. Anesthetic history: No history of anesthetic complications. Grade 2 view with mac 4, grade 1 view with mac 3. Plan: GA with ETT, standard monitors + A-line, large bore IV access. Region - Other Informed Consent: Anesthetic plan and risks discussed with patient. Plan discussed with GASOLINE CATALYST OPERATOR and attending. Anesthesia Screening documented in this encounter Plan of Treatment Upcoming Encounters Date Type Department Care Team (Late st Contact Info) Description 09/08/2024 9:40 AM EDT Office Visit Cardiology at [address] [place] [address] Gonzales Torres MD [facility] [place] [address] documented as of this encounter Visit Diagnoses Not on filedocumented in this encounter Administered Medications Inactive Administered Medications - up to 3 most recent administrations Medication Order MAR Action Action Date Dose Rate Site clindamycin (Cleocin) (150 mg/mL) injection Intravenous, PRN, Starting on Fri07/16/23 at 1306, Until Fri07/16/23 at 1550, Anesthesia Intra-op, Routine Given 07/16/2023 1:06 PM EDT 600 mg dexAMETHasone (Decadron) injection Intravenous, PRN, Starting on Fri07/16/23 at 1328, Until Fri07/16/23 at 1550, Anesthesia Intra-op, Routine Given 07/16/2023 1:28 PM EDT 8 mg fentaNYL (pf) (50 mcg/mL) multi-dose injection Intravenous, PRN, Starting on Fri07/16/23 at 1238, Until Fri07/16/23 at 1550, Anesthesia Intra-op, Routine Given 07/16/2023 12:38 PM EDT 100 mcg heparin (porcine) (1,000 units/mL) injection PRN, Starting on Fri07/16/23 at 1333, Until Tash 07/17/23 at 1518, Intra-Operative (Intra-Procedure), Routine Given 07/16/2023 1:49 PM EDT 8,000 Units Given 07/16/2023 1:33 PM EDT 2,500 Units lactated ringers infusion 1,000 mL, at 100 mL/hr, Intravenous, CONTINUOUS, Starting on Fri07/16/23 at 1230, Until Fri07/16/23 at 2153, Day of Surgery (Day of Procedure) Restarted 07/16/2023 12:34 PM EDT New Bag 07/16/2023 12:30 PM EDT 1,000 mLs 100 mL/hr lidocaine (pf) (Xylocaine) (20 mg/mL) 2% injection syringe Intravenous, PRN, Starting on Fri07/16/23 at 1240, Until Fri07/16/23 at 1550, Anesthesia Intra-op, Routine Given 07/16/2023 12:40 PM EDT 100 mg ondansetron (pf) (Zofran) (2 mg/mL) injection Intravenous, PRN, Starting on Fri07/16/23 at 1523, Until Fri07/16/23 at 1550, Anesthesia Intra-op, Routine Given 07/16/2023 3:23 PM EDT 4 mg PHENYLephrine (Navid-Synephrine) (80 mcg/mL) in sodium chloride 0.9% 250 mL infusion Intravenous, CONTINUOUS PRN, Starting on Fri07/16/23 at 1240, Until Fri07/16/23 at 1550, Anesthesia Intra-op, Routine Restarted 07/16/2023 3:06 PM EDT 20 mcg/min 15 mL/hr Rate/Dose Change 07/16/2023 2:25 PM EDT 40 mcg/min 30 mL/h r Rate/Dose Change 07/16/2023 2:13 PM EDT 30 mcg/min 22.5 mL /hr PHENYLephrine in NS (PF) (NAVID-SYNEPHRINE) 0.8 mg/10 mL (80 mcg/mL) multi-dose injection Syringe Intravenous, PRN, Starting on Fri07/16/23 at 1318, Until Fri07/16/23 at 1550, Anesthesia Intra-op, Routine Given 07/16/2023 3:12 PM EDT 160 mcg Given 07/16/2023 1:18 PM EDT 160 mcg propofoL (Diprivan) (10 mg/mL) infusion Intravenous, CONTINUOUS PRN, Starting on Fri07/16/23 at 1245, Until Fri07/16/23 at 1550, Anesthesia Intra-op, Routine New Bag 07/16/2023 12:45 PM EDT 50 mcg/kg/min 28.59 mL/hr propofoL (Diprivan) 10 mg/mL bolus injection (Anesthesia) Intravenous, PRN, Starting on Fri07/16/23 at 1240, Until Fri07/16/23 at 1550, Anesthesia Intra-op Given 07/16/2023 12:42 PM EDT 50 mg Given 07/16/2023 12:40 PM EDT 100 mg protamine (10 mg/mL) injection Intravenous, PRN, Starting on Fri07/16/23 at 1512, Until Fri07/16/23 at 1550, Anesthesia Intra-op, Routine Given 07/16/2023 3:12 PM EDT 50 mg rocuronium (Zemuron) (10 mg/mL) multi-dose injection Intravenous, PRN, Starting on Fri07/16/23 at 1240, Until Fri07/16/23 at 1550, Anesthesia Intra-op, Routine Given 07/16/2023 1:35 PM EDT 20 mg Given 07/16/2023 12:40 PM EDT 60 mg sodium chloride 0.9% infusion Intravenous, CONTINUOUS PRN, Starting on Fri07/16/23 at 1251, Until Fri07/16/23 at 1550, Anesthesia Intra-op New Bag 07/16/2023 12:51 PM EDT documented in this encounter Care Teams Shingle Weaver Relationship Specialty Start Date End Date Camacho Barrera DO [address] [place], [place] [address] [address] PCP - General Family Medicine 07/01/18 documented as of this encounter
--- OUTSIDE RECORDS SUMMARY | 2024-07-21 19:27 | XMS_ITS | Encounter Summary ---
Author Organization [facility] [place] [address] Care Team Providers Care Roll Up Guider Operator Name Role Phone Camacho Barrera DO Primary Care Provider [phone] Encounter Details Date Type Department Care Team (Latest Contact Info) Description 09/15/2023 Travel Social History Tobacco Use Types Packs/Day [...] AM EDT Office Visit Cardiology at [address] [place] [address] Gonzales Torres MD [facility] [address] documented as of this encounter Visit Diagnoses Not on filedocumented in this encounter Care Teams Roll Up Guider Operator Relationship Specialty Start Date End Date Camacho Barrera DO [address] [place] [address] PCP - General Family Medicine 07/01/18 documented as of this encounter
--- OUTSIDE RECORDS SUMMARY | 2024-07-21 19:27 | XMS_ITS | Encounter Summary ---
[place] [address] Care Team Providers Care Infant Teacher Name Role Phone Camacho Barrera DO Primary Care Provider [phone] Encounter Details Date Type Department Care Team (Late st Contact Info) Description 09/01/2023 Telephone [place] [phone] Natalie Rodrigues, RN Social History Tobacco Use Types Packs/Day Years Used Date Smoking Tobacco: Never Smokeless Tobacco: Never Alcohol Use Standard Drinks/Week Comments Yes 14 (1 standard drink = 0.6 oz pu re alcohol) 2-3 drinks/night [facility] Inpatient Questions Answer Date Recorded Does Anyone [...] encounter Miscellaneous Notes * Telephone Encounter - Natalie Rodrigues RN - 09/01/2023 8:42 AM EDT Called patient in regards to below myDH message we received from patient. Patient stopped Xarelto on Friday as he was having nose bleeds that persisted up to 6 hours at a time and he also noted blood in his BM on Friday. Since stopping the xarelto he has not had any more blood in his stool and reports having a small nose bleed yesterday but that it was short lived. Patient is doing afrin and nose holding for nose bleeds. I have sent a message to Dr. Chandra with this information so that he can advise on what patient should do from here. * Telephone Encounter - Natalie Rodrigues RN - 09/01/2023 8:42 AM EDT ----- Message from Camacho Flores sent at 08/30/2023 7:11 PM EDT ----- Regarding: Bleeding Contact: I have been experiencing nose bleeding off and on for a week I use Afrin nasal spray and 10 nose holds which stops it for 12 hours. This evening I had blood in a BM. Should I come off the Xarelto fora few days? documented in this encounter Plan of Treatment Upcoming Encounters Date Type Department Care Team (Late st Contact Info) Description 09/08/2024 9:40 AM EDT Office Visit Cardiology at [address] [address] Gonzales Torres MD [facility] [place] [address] documented as of this encounter Visit Diagnoses Not on filedocumented in this encounter Care Teams Infant Teacher Relationship Specialty Start Date End Date Camacho Barrera DO [address] [place] [address] PCP - General Family Medicine 07/01/18 documented as of this encounter
--- OUTSIDE RECORDS SUMMARY | 2024-07-21 19:27 | XMS_ITS | Encounter Summary ---
[place] [address] Care Team Providers Care Finished Metal Repairer Name Role Phone Camacho Barrera DO Primary Care Provider [phone] Encounter Details Date Type Department Care Team (Latest Contact Info) Description 09/09/2023 8:15 AM EDT Laboratory Appointment Lab [address] [place] [address] Hematuria, unspecified type Social History Tobacco Use Types Packs/Day Years [...] 9:40 AM EDT Office Visit Cardiology at [address] [place] [address] Gonzales Torres MD [facility] [place] [address] documented as of this encounter Procedures Procedure Name Priority Date/Time Associated Diagnosis Comments URINALYSIS MICROSCOPIC EXAM Routine 09/09/2023 10:16 AM EDT URINALYSIS WITH REFLEX CULTURE Routine 09/09/2023 10:16 AM EDT Hematuria, unspecified type URINE CULTURE Routine 09/09/2023 10:16 AM EDT BASIC METABOLIC PANEL STAT 09/09/2023 8:28 AM EDT Hematuria, unspecified type documented in this encounter Results * (ABNORMAL) Urine culture (09/09/2023 10:16 AM EDT) Urine Culture 10,000-49,000 cfu/ml mixed mucosal jones Note: Culture shows multiple bacterial species suggesting mucosal contamination. (A) [facility] Clean Catch Urine 09/09/2023 10:16 AM EDT 09/09/2023 11:49 AM EDT Narrative Resulting Agency Comment Spec In Lab Akila Herman MD MICROBIOLOGY - [facility] ORDERABLES [facility] [place] [address] * (ABNORMAL) Urinalysis Microscopic Exam (09/09/2023 10:16 AM EDT) RBC, Urine 1 0 - 3 /HPF [facility] WBC, Urine 14(H) 0 - 3 /HPF [facility] Bacteria, Urine Few(A) None /HPF [facility] Squamous Epithelial Cells Raw Data, Urine 2 <=4 /HPF [facility] Hyaline Casts, Urine 12(H) 0 - 2 /LPF [facility] Calcium Oxalate Crystal, Urine Moderate(A ) None /HPF [facility] Clean Catch Urine 09/09/2023 10:16 AM EDT 09/09/2023 10:19 AM EDT Narrative Resulting Agency Comment Spec In Lab Akila Herman MD URINE ORDERABLES Performing Organization Address City/[facility]/ZIP Co de Phone Number [facility] [place] [address] * (ABNORMAL) Urinalysis with reflex Culture (09/09/2023 10:16 AM EDT) Glucose, Urine Dipstick Negative Negative mg/dL [facility] Protein, Urine Dipstick Trace(A) Negative mg/dL [facility] Bilirubin, Urine Dipstick Negative Negative mg/dL [facility] Comment: Clinical correlation required for positive Urine Bilirubin results as false positive may occur with some drugs and drug related products. If a false positive is suspected a serum total bilirubin should be considered if clinically indicated. Urobilinogen, Urine Dipstick Normal Normal mg/dL [facility] pH, Urn (dipstick) 5.0 5.0 - 8.0 [facility] Blood, Urine Dipstick Trace(A) Negative mg/dL [facility] Ketone, Urine Dipstick Trace(A) Negative mg/dL [facility] Nitrite, Urine Dipstick Negative Negative [facility] Leukocytes, Urine Dipstick Small(A) Negative mcL [facility] Appearance, Urine Dipstick Cloudy(A) Clear [facility] Specific [place] Urine Automated 1.027 1.005 - 1.030 [facility] Color, Urine Dipstick Yellow Yellow [facility] Reflex to Culture Yes [facility] Clean Catch Urine 09/09/2023 10:16 AM EDT 09/09/2023 10:19 AM EDT Narrative Resulting Agency Comment Spec In Lab Ramiro Chandra MD URINE ORDERABLES Performing Organization Address City/[facility]/ZIP Co de Phone Number [facility] [place] [address] * (ABNORMAL) Basic Metabolic Panel (non-fasting) (09/09/2023 8:28 AM EDT) Glucose 116 65 - 199 mg/dL [facility] Comment:Diabetes: >=200 mg/d L plus symptoms Blood Urea Nitrogen 19 10 - 20 mg/dL [facility] Creatinine 0.77(L) 0.80 - 1.50 mg/dL [facility] Sodium 142 135 - 145 mmol/L [facility] Potassium 3.9 3.5 - 5.0 mmol/L [facility] Comment: Please note: ??Patients with WBC >100,000 may have falsely elevated Potassium levels. ??For accurate Potassium quantification in these patients send serum separator tube (gold top) for subsequent determinations. ??Contact the Clinical Chemistry Laboratory if there are any questions. Chloride 106 98 - 107 mmol/L [facility] Carbon Dioxide 25 22 - 31 mmol/L [facility] Anion Gap 11 5 - 15 mmol/L [facility] Calcium 9.7 8.5 - 10.5 mg/dL [facility] Est Glomerular Filtration Rate 92 >=60 mL/min/1. 73 m?? [facility] Comment: This patient's estimated GFR was [...] and symptoms in addition to eGFR. Blood 09/09/2023 8:28 AM EDT 09/09/2023 8:46 AM EDT Narrative Resulting Agency Comment Spec In Lab Jaz Daniel MD CHEMISTRY ORDERABLES Performing Organization Address City/State/[facility] Co de Phone Number [facility] [place] [address] documented in this encounter Visit Diagnoses Diagnosis Hematuria, unspecified type documented in this encounter Care Teams Finished Metal Repairer Relationship Specialty Start Date End Date Camacho Barrera DO [address] [place] [address] PCP - General Family Medicine 07/01/18 documented as of this encounter
--- OUTSIDE RECORDS SUMMARY | 2024-07-21 19:27 | XMS_ITS | Encounter Summary ---
[place] [address] Care Team Providers Care Automotive Alignment Specialist Name Role Phone Camacho Barrera DO Primary Care Provider [phone] Reason for Visit * Diagnostic Test (Routine) - Closed Specialty Diagnoses / Procedures Referred By Mike johnson Referred To Contact Diagnoses Left carotid artery stenosis Procedures Carotid Duplex, Unilateral de Edwardo Bowling MD [facility] [place] [address] [facility] Vascular Lab [address] [place] [address] Referral ID Status Reason Start Date Expiration Date V isits Requested Visits Authorized [id number] Closed Specialty Service Requested 07/17/2023 07/16/2024 1 1 Encounter Details Date Type Department Care Team (Late st Contact Info) Description 08/15/2023 1:30 PM EDT Tech [place] [address] Michael Hebert Left carotid artery stenosis Social History Tobacco Use Types Packs/Day Years Used Date Smoking Tobacco: Never Smokeless Tobacco: Never Alcohol Use Standard Drinks/Week Comments Yes 14 (1 standard drink = 0.6 oz pu re alcohol) 2-3 drinks/night [facility] Inpatient Questions Answer Date Recorded Does [...] AM EDT Office Visit Cardiology at [address] [place] [address] Gonzales Torres MD [facility] [place] [address] documented as of this encounter Procedures Procedure Name Priority Date/Time Associated Diagnosis Comments CAROTID DUPLEX, UNILATERAL Routine 08/15/2023 1:01 PM EDT Left carotid artery stenosis documented in this encounter Results * Carotid Duplex, Unilateral (08/15/2023 1:01 PM EDT) VB Text Report Department: Vascular Surgery Lab Patient: [id number] (CAMACHO FLORES) CPT: 01204 Referring Physician: RAMIRO CHANDRA ?? Indications: S/P LT CEA ? [...] ? 166 ?? 3.00 Electronically Signed by: RAMIRO CHANDRA on 2023-08-17 08:53:33 PM [facility] VB Text Report End of Report [facility] 08/15/2023 1:01 PM EDT Ramiro Chandra MD VASCULAR ORDERABLES [facility] documented in this encounter Visit Diagnoses Diagnosis Left carotid artery stenosis Occlusion and stenosis of carotid artery without mention of cerebral infarction documented in this encounter Care Teams Automotive Alignment Specialist Relationship Specialty Start Date End Date Camacho Barrera [place] [place] [address] PCP - General Family Medicine 07/01/18 documented as of this encounter
--- OUTSIDE RECORDS SUMMARY | 2024-07-21 19:27 | XMS_ITS | Encounter Summary ---
[place] [address] Care Team Providers Care Glazier Apprentice Name Role Phone Camacho Barrera DO Primary Care Provider [phone] Encounter Details Date Type Department Care Team (Late st Contact Info) Description 07/31/2023 Ancillary Procedure [place] [phone] Camacho Barrera DO [address] [place] [address] Social History Tobacco Use Types Packs/Day Years Used Date Smoking Tobacco: Never Smokeless Tobacco: Never Alcohol Use Standard Drinks/Week Comments Yes 14 (1 standard drink = 0.6 oz pu re alcohol) 2-3 drinks/night [facility] Inpatient Questions Answer Date Recorded Does Anyone [...] 9:40 AM EDT Office Visit Cardiology at [address] [place] [phone] Gonzales Torres MD [facility] [place] [address] documented as of this encounter Procedures Procedure Name Priority Date/Time Associated Diagnosis Comments FILM LIBRARY STORAGE ONLY CT HEAD Routine 07/31/2023 12:00 AM EDT documented in this encounter Results * Film Library- Storage Only CT Head (07/31/2023 12:00 AM EDT) Narrative [facility] - 08/01/2023 9:30 AM EDT This exam is auto-finalizing. It's purpose is for storage only. Camacho Barrera DO Jose Miguel FILM LIBRARY ORD ERABLES [place], [place] documented in this encounter Visit Diagnoses Not on filedocumented in this encounter Care Teams Glazier Apprentice Relationship Specialty Start Date End Date Camacho Barrera DO [address] [place] [address] PCP - General Family Medicine 07/01/18 documented as of this encounter
--- OUTSIDE RECORDS SUMMARY | 2024-07-21 19:27 | XMS_ITS | Encounter Summary ---
[place] [address] Care Team Providers Care Web Interface Developer Name Role Phone Camacho Barrera DO Primary Care Provider [phone] Encounter Details Date Type Department Care Team (Late st Contact Info) Description 08/14/2023 Ancillary Procedure [place] [phone] Camacho Barrera DO [address] [place] [address] Social History Tobacco Use Types Packs/Day Years Used Date Smoking Tobacco: Never Smokeless Tobacco: Never Alcohol Use Standard Drinks/Week Comments Yes 14 (1 standard drink = 0.6 oz pu re alcohol) 2-3 drinks/night [facility] Inpatient Questions Answer Date Recorded Does [...] 9:40 AM EDT Office Visit Cardiology at [address] [place] [address] Gonzales Torres MD [facility] [place] [address] documented as of this encounter Procedures Procedure Name Priority Date/Time Associated Diagnosis Comments FILM LIBRARY STORAGE ONLY MR SPINE Routine 08/14/2023 12:00 AM EDT documented in this encounter Results * Film Library- Storage Only MR Spine (08/14/2023 12:00 AM EDT) Narrative [facility] [place] [place] - 08/15/2023 4:36 AM EDT This exam is auto-finalizing. It's purpose is for storage only. Camacho Barrera DO Jose Miguel FILM LIBRARY ORD ERABLES [place], [place] documented in this encounter Visit Diagnoses Not on filedocumented in this encounter Care Teams Web Interface Developer Relationship Specialty Start Date End Date Camacho Barrera DO [address] [place] [address] PCP - General Family Medicine 07/01/18 documented as of this encounter
--- OUTSIDE RECORDS SUMMARY | 2024-07-21 19:27 | XMS_ITS | Encounter Summary ---
[place] [address] Care Team Providers Care Plant Operator Name Role Phone Camacho Barrera DO Primary Care Provider [phone] Encounter Details Date Type Department Care Team (Late st Contact Info) Description 09/05/2023 Telephone [place] [phone] Abigail Adasm RN Social History Tobacco Use Types Packs/Day Years Used Date Smoking Tobacco: Never Smokeless Tobacco: Never Alcohol Use Standard Drinks/Week Comments Yes 14 (1 standard drink = 0.6 oz pu re alcohol) 2-3 drinks/night [facility] Inpatient Questions Answer Date Recorded Does Anyone [...] encounter Miscellaneous Notes * Telephone Encounter - Abigail Adams RN - 09/05/2023 11:58 AM EDT Outgoing call to Tomas regarding the message he sent about nose and rectal bleeding I let Tomas know that per Dr. Chandra: he can hold his xarelto for a few days and then restart next week Tomas advised me that he had stopped taking the Xarelto last week. The nose bleeds and the blood in his stool has resolved. He restarted the Xarelto a few days ago and so far has not had any more bleeding episodes. Tomas also reported that he has stopped his Aspirin which at this time he has not restarted. Tomas reported that he has a history of nose bleeds when on the Aspirin. He typically will stop it for a few weeks then restart. This is his plan for this current episode. I advised Tomas to reach out to us when he restarts the Aspirin or if further bleeding episodes occur. Tomas verbalized understanding. MORIAH Burgessrevenue cycle manager [facility] documented in this encounter Plan of Treatment Upcoming Encounters Date Type Department Care Team (Late st Contact Info) Description 09/08/2024 9:40 AM EDT Office Visit Cardiology at [address] [address] Gonzales Torres MD [facility] [place] [address] documented as of this encounter Visit Diagnoses Not on filedocumented in this encounter Care Teams Plant Operator Relationship Specialty Start Date End Date Camacho Barrear DO [address] [place] [address] PCP - General Family Medicine 07/01/18 documented as of this encounter
--- OUTSIDE RECORDS SUMMARY | 2024-07-21 19:27 | XMS_ITS | Encounter Summary ---
Author Organization [facility] [place] [address] Care Team Providers Care Loan Services Professional Name Role Phone Camacho Barrera DO Primary Care Provider [phone] Encounter Details Date Type Department Care Team (Late st Contact Info) Description 08/01/2023 Telephone Cardiology at [address] [address] Fred Alva PA [facility] [place] [address] Social History Tobacco Use Types Packs/Day Years Used Date Smoking Tobacco: Never Smokeless Tobacco: Never Alcohol Use Standard Drinks/Week Comments Yes 14 (1 standard drink = 0.6 oz pu re alcohol) 2-3 drinks/night [facility] Inpatient Questions Answer Date Recorded Does [...] encounter Miscellaneous Notes * Telephone Encounter - Fred Alva PA - 08/01/2023 10:19 AM EDT Images from the original note were not included. 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 male with above CV history presented for evaluation of back discomfort with recent lidocaine patch use. He was found to be in rapid atrial fibrillation. Hospital he had a near syncopal episode with complaints of dizziness which quickly improved when he laid down and SBP 130 at that time. He was given Cardizem 10 mg IV x1 followed by 30 p.o. 3 times daily which brought h eart rates to the 90s. When going for his MRI he became diaphoretic and dizzy with SBP 120 and a reported heart rate 30 by pulse oximetry (he was off telemetry for imaging). Bradycardia was not witnessed on telemetry. Once back on unit orthostatic vitals checked and seated SBP 80s. They suspected volume depletion and gave 500 cc IV fluids. He is also being treated for presumed UTI. He is currently on Xarelto, aspirin, Plavix since his CEA at which time he had an interruption in his anticoagulation. OSH questions: -Does he need to be evaluated for pacemaker given isolated pulse oximeter reading of 30 bpm when hewas off telemetry? - Does he need ROLAND/DCCV? -Recommendations for heart rate control. Vital sign: HR 120, bp 120s/70s. Pertinent Diagnostic Findings: Labs: probnp 520 (lower than prior 1600s),k 4.4 creatinine 0.7 Tsh 4.66, WBC elevated. EKG: Atrial fibrillation, 113 bpm, nonspecific T wave abnormality high lateral leads. TTE: 05/21/2023 Interpretation Summary - Technically limited study. - [...] is no prior study for comparison. Assessment & Plan: 77 y.o. male with paroxysmal atrial fibrillation s/p ablation in 2018 and prior dccv as recent as early 05/2023 @[facility] at which time discharged in sinus rhythm, CVA 05/2023, Left CEA 07/16/23, ASCVD, htn, and back pain who presented for evaluation of back pain. He was found to be back in atrial fibrillation with RVR (HR 120s) and also being treated for UTI. Episodes of orthostasis with presumption of volume depletion and received IV fluids. Pulse oximetry while going for MRI showed transient heart rate 30 bpm though no telemetry evidence of bradycardia and suspected erroneous. I do not feel a pacemaker evaluation is necessary at this time and they will continue to monitor closely on telemetry and update us as to further bradycardia arrhythmias. He is currently normotensive. For A-fib rate control, they will continue current use of diltiazem 30 Mg p.o. 3 times daily as BP allows. I recommended starting digoxin with load as previously recommended by automobile parker on 05/2023 triage call and prior to that EP 01/2023 office recommendations if he was to enter back into atrial fibrillation with RVR. In the past he was on metoprolol but not recentlyin use leading up to this presentation. He has recent interruption in anticoagulation so for DCCV co nsideration would need ROLAND imaging. If difficulty rate controlling with above recommendations or iflimited by blood pressure, he could be further considered for ROLAND/DCCV. He is on antibiotic therapyfor UTI and ongoing work-up of back pain. Above recommendations were based on my discussion with above listed OSH provider. I have not personally interviewed or examined this patient. I encouraged them to contact us if there is any change insymptoms, decision- making, or further need for guidance in management. Fred Alva PA-C Access Pager [phone] 08/01/2023 documented in this encounter Plan of Treatment Upcoming Encounters Date Type Department Care Team (Late st Contact Info) Description 09/08/2024 9:40 AM EDT Office Visit Cardiology at [address] [place] [address] Gonzales Torres MD [facility] [place] [address] documented as of this encounter Visit Diagnoses Not on filedocumented in this encounter Care Teams Loan Services Professional Relationship Specialty Start Date End Date Camacho Barrera DO [address] [place] [address] PCP - General Family Medicine 07/01/18 documented as of this encounter
--- OUTSIDE RECORDS SUMMARY | 2024-07-21 19:27 | XMS_ITS | Encounter Summary ---
Author Organization [facility] [place] [address] Care Team Providers Care Newspaper Clipper Name Role Phone Mirna Barrera DO Primary Care Provider [phone] Reason for Referral * Diagnostic Test (Routine) - Closed Specialty Diagnoses / Procedures Referred By Contrachel t Referred To Contact Diagnoses Left carotid artery stenosis Procedures Carotid Duplex, Unilateral de Edwardo Bowling MD [facility] [place] [address] [facility] Vascular Lab [address] [place] [address] Referral ID Status Reason Start Date Expiration Date V isits Requested Visits Authorized [id number] Closed Specialty Service Requested 07/17/2023 07/16/2024 1 1 * Diagnostic Test (Routine) - Closed Specialty Diagnoses / Procedures Referred By Mike t Referred To Contact Radiology Diagnoses Hematuria, unspecified type Procedures CT Abdomen & Pelvis wo Contrast Akila Herman MD [facility] [place] [address] [facility] [place] [address] Referral ID Status Reason Start Date Expiration Date V isits Requested Visits Authorized [id number] Closed Specialty Service Requested 07/16/2023 01/16/2025 1 1 Reason for Visit * Auth/Cert (Routine) Specialty Diagnoses / Procedures Referred By Mike t Referred To Contact Diagnoses Occlusion and stenosis of bilateral carotid arteries Encounter for other preprocedural examination Bilateral Carotid Stenosis Procedures PRO THROMBOENDARTECTMY NECK, NECK INCIS @ENDARTERECTOMY, CAROTID, VERTEBRAL,SUBCLAVIAN W\WO PATCH GRAFT (WRVU 21.16) Lorena Chandra MD [facility] [place] [address] [facility] Referral ID Status Reason Start Date Expiration Date Visits Re quested Visits Authorized [id number] 1 1 Encounter Details Date Type Department Care Team (Latest Contact Info) Description 07/16/2023 9:39 AM EDT - 07/17/2023 12:45 PM EDT Hospital [place] [address] Lorena Chandra MD [facility] [place] [address] Pre-op testing; Carotid stenosis, asymptomatic, bilateral; Cerebrovascular accident (CVA) due to other mechanism; Acute ischemic stroke; Hematuria, unspecified type; Left carotid artery stenosis Discharge Disposition: Home Social History Tobacco Use Types Packs/Day Years [...] Sign Reading Time Taken Comments Blood Pressure 126/67 07/17/2023 7:16 AM EDT Pulse 55 07/16/2023 8:00 PM EDT Temperature 36.4 ??C (97.5 ??F) 07/17/2023 7:16 [...] Chest pain Brain abscess History of Presentation: iMrna Flores is a 77 year old male [...] went to the OR after presenting [facility] with right hand weakness for a [...] 2:00 PM Gonzales Torres MD Cardiology at [place] Arrive at: [facility] [address] [phone] 09/09/2023 11:00 AM Milagros Parra APRN Neurology at [facility] Arrive at: [facility] [phone] Future Orders Complete By Expires Carotid Duplex, Unilateral [VAS2 Custom] 08/14/2023 (Approximate) 02/13/2024 Process Instructions: There is no in-house vascular director geophysical laboratory available on weeknights (5pm-8am), weekends, or holidays. IF THIS IS A REQUEST FOR AN EMERGENT STUDY DURING THOSE HOURS, please have the senior provider responsible for the patient page the Vascular Surgery Fellow/Senior Resident account retention representative to discuss options. Scheduling Instructions: Questions: Laterality: Left Indication for study/signs & symptoms: Carotid Stenosis Question to be answered: Poost CEA Preferred location?: [facility] Clinics CT Abdomen & Pelvis wo Contrast [[id number] Custom] 08/16/2023 (Approximate) 02/15/2024 Process Instructions: 1.Choose [...] for radiologist: Where will study be performed?: [facility] Radiology Stat read required?: Does patient require sedation?: GA rationale: Date of injury if applicable: Urinalysis with reflex Culture [[id number] Custom] 08/16/2023 (Approximate) 02/15/2024 Process Instructions: A urine culture will be added on by the lab if WBCs greater than 10 and/or moderate or large leukocytes and/or positive nitrites are found. Scheduling Instructions: Comments: Questions: Preferred urine source for collection: Clean Catch Urine US Retroperitoneal Complete [[id number] Custom] 08/16/2023 (Approximate) 02/15/2024 Process Instructions: This exam includes imaging of both kidneys, ureters & bladder. Scheduling Instructions: Questions: Where will study be performed?: [facility] Radiology Portable exam?: Ultrasound scheduling priority: Reason for exam and clinical history: gross hematuria Clinical information / fried questions for radiologist: Stat read required?: Date of injury if applicable: Requested Time: Anticoagulation & Antiplatelet: Anticoagulation: Lovenox Agent: Enoxaparin Indication: CEA Intended Duration: Indefinitely Antiplatelet: ASA Agent: Aspirin Indication: CEA Intended Duration: Indefinitely For questions regarding these medications, please contact Vascular Surgery at [phone]. For issues on weeknights after 5pm and weekends please call [phone] and ask for the Vascular Fellow oncall. [...] these medications, please contact Vascular Surgery at [phone]. For issues on weeknights after 5pm and weekends please call [phone] and ask for the Vascular Fellow onctita. For questions regarding these medications, please contact Vascular Surgery at [phone]. For issues on weeknights after 5pm and weekends please call [phone] and ask for the Vascular Fellow onctita. [...] these medications, please contact Vascular Surgery at [phone]. For issues on weeknights after 5pm and weekends please call [phone] and ask for the Vascular Fellow laquita. [...] Marin RN - 07/17/2023 12:45 PM EDT [facility] Short Stay Unit Discharge Note All relevant [...] Andujar MD - 07/16/2023 8:48 PM EDT [facility] Department of Vascular Surgery Inpatient Post Op Check Note Patient Name: Mirna Flores Patient : 1945 Patient Patient Location: [address] Attending Surgeon: LORENA CHANDRA ID: Mirna [...] Admission (Current) from 07/16/2023 in PACU at [facility] OfficeVisit from 06/20/2023 in Vascular Surgery at [facility] Weight 95.3 kg (210 lb) 1 07/16/2023 [...] QTC Calculated (Bezet) 469 ms Calculated P Willis 29 degrees Calculated R Willis 47 degrees Calculated T Willis 105 degrees INTERPRETATION Normal sinus rhythm Low voltage QRS Borderline ECG When compared with ECG of 20-MAY-2023 12:46, Premature atrial complexes are no longer Present Confirmed by MD Jose, Marcellus ([id number]) on 07/16/2023 4:38:58 PM Carotid Duplex, Unilateral Result Value Ref Range VB Text Report Department: Vascular Surgery Lab Patient: [id number] (MIRNA FLORES) CPT: 35656 Referring Physician: LORENA CHANDRA Indications: Intra-op left [...] MD, PGY-1 07/16/2023 Vascular Surgery Service Pager [phone] * Michaela Stuart RN - 07/16/2023 8:29 PM EDT 1899: Report received from MORIAH Sebastian; care assumed. Pt is A&Ox4, VSS on RA. [facility] resident aware of red urine output, no new orders. 1999: Phase 2 criteria met. Right art line removed. Neuro is WDL. Pt has palpable DP & PT pulses in both lower extremities. 2209: Report given to SSU MORIAH Tinajero. * Bobbi Jorge RN - 07/16/2023 4:02 PM EDT 155- Arrived from OR in bed. Attached to monitors and alarms set appropriately for patient. Lizama in place draining pink tinged urine. Left neck dressing covered with guaze and transparent tape, scant amount of moist drainage area marked. Neuro intact except pupils being 1mm different, anesthesia made aware. MORIAH Gale for break coverage. 1700- Neuro remains intact, [...] Other Anticoagulation: name: Xarelto, indication: afib, duration: prison Antiplatelet: name(s): ASA , duration: meterman Patient Active Problem List Diagnosis Acute ischemic stroke Stroke Premature ventricular beats Overview Note: Zio (December 2018): 8.6% burden, 2 morphologies prevalent Zio (August 2020): 11.8% burden, 2 morphologies prevalent Status post ablation of atrial fibrillation ASCVD (arteriosclerotic cardiovascular disease) Overview Note: PCI in 2005 at [facility]: stents to LAD x2, LCx x2, ramus [...] 2.25) performed by Fred Maki MD at [facility] MAIN OR PRO STEREO BX/ASPIR/EXCIS, INTRACRANIAL LESN Right 01/27/2015 @STEREOTACTIC BX,ASP, OR EXC.-INTRACRANIAL LESION, W/SCAN performed by Jose Small MD at [facility] MAIN OR PRO STEREOTACTIC CPTR ASSTD PX CRANIAL, INTRADURAL Right 01/27/2015 STEREOTACTIC COMPUTER-ASSTD NAVIGATIONAL CRANIAL INTRADURAL performed by Jose Small MD at [facility] MAIN OR Functional Status: Lives at home, [...] Social History Narrative 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 Social Determinants of Health Financial Resource Strain: [...] into the left eye 2 times daily. OneTouch Verio test strips Strip USE TO [...] Duplex 05/21/23: Department: Vascular Surgery Lab Patient: [id number] (MIRNA FLORES) CPT: 41546 Referring Physician: NIKHIL BARNETT Indications: Left hemispheric [...] Admission order reviewed. 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[facility] Payor: [facility] / Plan: [facility] / Product Type: *No Product type* / Secondary Insurance: N/A ; Prescription Coverage: Preferred Pharmacy: [facility] - [place], [place] - [address] [facility] [facility] [address] [facility] [address] [facility] - [place], [place] - [address] [facility] [address] [facility] [address] Advance Care Planning: Attempt Cardiopulmonary Resuscitation - Inpatient Received - Patients address: [facility] [address] [employer] [address] Social & Family Supports: Extended Emergency Contact Information Primary Emergency Contact: Kisha Flores Address: [address] [place] [address] [facility] Mobile Relation: Spouse Secondary Emergency Contact: Michelle Giron [facility] Mobile Relation: Child Transportation Anticipated: private car Assessment: Patient with no apparent RNCM/SW needs at this time. No housing, transportation, insurance, resources concerns identified at this time. Supports in place to achieve a safe post-hospital transition. No identified barriers to accessing necessary care and/or follow-up after discharge. Plan: Patient to d/c to home via private car when medically ready. Registered Nurse Tool Grinder / Pet Feeder will continue to follow patient???s progress and remain available if situation changes for coordination of care, psychosocial support and/or discharge planning. Office of Care Management Domi Prabhakar RN, BSN Case Management Work [phone] * Consult Note - Akila Herman MD [...] a Urologist. Reports nocturia. Denies pain. AC: VERONICA Riley Past Medical History: Past Medical History: Diagnosis Date A-fib Brain abscess CAD (coronary artery disease) HLD (hyperlipidemia) HTN (hypertension) Past Surgical History: Past Surgical History: Procedure Laterality Date PRO CARDIOVERSION ELECTIVE ARRHYTHMIA EXTERNAL N/A 08/28/2022 CARDIOVERSION-ELECTIVE (WRVU 2.25) performed by Fred Maki MD at [facility] MAIN OR PRO STEREO BX/ASPIR/EXCIS, INTRACRANIAL LESN Right 01/27/2015 @STEREOTACTIC BX,ASP, OR EXC.-INTRACRANIAL LESION, W/SCAN performed by Jose Small MD at [facility] MAIN OR PRO STEREOTACTIC CPTR ASSTD PX CRANIAL, INTRADURAL Right 01/27/2015 STEREOTACTIC COMPUTER-ASSTD NAVIGATIONAL CRANIAL INTRADURAL performed by Jose Small MD at [facility] MAIN OR Family History: Family History Problem [...] Social History Narrative 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 Social Determinants of Health Financial Resource Strain: [...] Monroe MD - 07/16/2023 6:07 PM EDT [facility] Operative Note Patient Name: Mirna Flores : [id number] MR#: [id number] Case Date: 07/16/2023 Surgeon: Surgeon(s) and Role: [...] carotid artery in standard fashion. Using a Walker elevator, endarterectomy of the common carotid and [...] AM EDT Office Visit Cardiology at [address] [place] [address] Gonzales Torres MD [facility] [place] [address] documented as of this encounter Procedures Procedure Name Priority Date/Time Associated Diagnosis Comments URINALYSIS MICROSCOPIC EXAM Routine 07/16/2023 9:57 PM EDT URINE HOLD Routine 07/16/2023 9:57 PM EDT URINALYSIS WITH REFLEX CULTURE Routine 07/16/2023 9:57 PM EDT URINE CULTURE Routine 07/16/2023 9:57 PM EDT CAROTID DUPLEX, UNILATERAL Routine 07/16 2:41 PM EDT Carotid stenosis, asymptomatic, bilateral Thromboendartectmy Neck, Neck Incis (26365) 07/16/2023 12:34 PM EDT Pre-op testing Carotid [...] who have questions, please contact the health rn acute care that requested your imaging first. ? David Madera, Staff Physician Electronically Signed Final Report ?? 09/09/2023 01:50 pm Narrative 09/09/2023 1:50 PM EDT Renal ? (Signed Final 09/09/2023 01:50 pm) PATIENT INFO: ID #: ? [id number] ?: ??[birth year] (77 yrs)(M) Name: ? MIRNA FLORES ? Visit Date: 09/09/2023 12:24 pm PERFORMED BY: Attending: ?Santy HOOD, David John Resident: ? Yuko HOOD, Marvin Tomas Performed By: ? Kiki Zamora RDMS Referred By: ?LORENA CHANDRA Location: ? [place] SERVICE(S) PROVIDED: URETRO - Retroperitoneal Complete - [id number] ? [id number] INDICATIONS: gross hematuria COMPARISON: CT: Abdomen/Pelvis 09/09/2023 [...] 09/09/2023 01:50 pm) PATIENT INFO: ID #: [id number] : [birth year] (77 yrs)(M) Name: MIRNA FLORES Visit Date: 09/09/2023 12:24 pm PERFORMED BY: Attending: David Madera MD Resident: Marvin Huntley MD Performed By: Kiki Zamora RDMS Referred By: LORENA CHANDRA Location: [place] SERVICE(S) PROVIDED: URETRO - Retroperitoneal Complete - [id number] INDICATIONS: gross hematuria COMPARISON: CT: Abdomen/Pelvis 09/09/2023 [...] who have questions, please contact the health rn acute care that requested your imaging first. David Madera, Staff Physician Electronically Signed Final Report 09/09/2023 01:50 pm Lorena Chandra MD IMG US GEN ORDERABLE S * (ABNORMAL) Urinalysis with reflex Culture (09/09/2023 10:16 AM EDT) Glucose, Urine Dipstick Negative Negative mg/dL [facility] Protein, Urine Dipstick Trace(A) Negative mg/dL [facility] Bilirubin, Urine Dipstick Negative Negative mg/dL [facility] Comment: Clinical correlation required for positive Urine Bilirubin results as false positive may occur with some drugs and drug related products. If a false positive is suspected a serum total bilirubin should be considered if clinically indicated. Urobilinogen, Urine Dipstick Normal Normal mg/dL [facility] pH, Urn (dipstick) 5.0 5.0 - 8.0 [facility] Blood, Urine Dipstick Trace(A) Negative mg/dL [facility] Ketone, Urine Dipstick Trace(A) Negative mg/dL [facility] Nitrite, Urine Dipstick Negative Negative [facility] Leukocytes, Urine Dipstick Small(A) Negative mcL [facility] Appearance, Urine Dipstick Cloudy(A) Clear [facility] Specific Bulger Urine Automated 1.027 1.005 - 1.030 [facility] Color, Urine Dipstick Yellow Yellow [facility] Reflex to Culture Yes [facility] Clean Catch Urine 09/09/2023 10:16 AM EDT 09/09/2023 10:19 AM EDT Narrative Resulting Agency Comment Spec In Lab Lorena Chandra MD URINE ORDERABLES Performing Organization Address City/State/[facility] Co de Phone Number [facility] [place] [address] * CT Abdomen & Pelvis wo Contrast [...] who have questions please contact the health rn acute care that requested your imaging first. ? Narrative [...] patients who have questions please contactthe health rn acute care that requested your imaging first. Lorena Chandra MD IMG CT ORDERABLES * Carotid Duplex, Unilateral (08/15/2023 1:01 PM EDT) VB Text Report Department: Vascular Surgery Lab Patient: [id number] (MIRNA FLORES) CPT: 25449 Referring Physician: LORENA CHANDRA ?? Indications: S/P [...] PM EDT Lorena Chandra MD VASCULAR ORDERABLES Performing Organization Address City/State/[facility] Co de Phone Number [facility] * Urine culture (07/16/2023 9:57 PM EDT) Urine Culture 1,000-9,000 cfu/ml Insignificant growth [facility] Indwelling Catheter Urine 07/16/2023 9:57 PM EDT 07/17/2023 1:49 AM EDT Narrative Resulting Agency Comment Spec In Lab Crispin Andujar MD MICROBIOLOGY - GEN ERAL ORDERABLES Performing Organization Address City/[facility] Co de Phone Number [facility] [place] [address] * (ABNORMAL) Urinalysis Microscopic Exam (07/16/2023 9:57 PM EDT) RBC, Urine >100(H) 0 - 3 /HPF [facility] Comment:Interpret with cauti on, manual microscopic results are from an unspun specimen. WBC, Urine >100(H) 0 - 3 /HPF [facility] Comment:Interpret with cauti on, manual microscopic results are from an unspun specimen. Bacteria, Urine Occasiona l(A) None /HPF [facility] Comment:Interpret with cauti on, manual microscopic results are from an unspun specimen. Indwelling Catheter Urine 07/16/2023 9:57 PM EDT 07/16/2023 10:24 PM EDT Narrative Resulting Agency Comment Spec In Lab Crispin Andujar MD URINE ORDERABLES Performing Organization Address [facility] Co de Phone Number [facility] [place] [address] * Urine Hold (07/16/2023 9:57 PM EDT) Hold, Urine Sample in lab. [facility] Urine Urine / Unknown 07/16/2023 9 :57 PM EDT 07/16/2023 10:24 PM EDT Crispin Andujar MD URINE ORDERABLES Performing Organization Address City/[facility] Co de Phone Number [facility] [place] [address] * (ABNORMAL) Urinalysis with reflex Culture (07/16/2023 9:57 PM EDT) Glucose, Urine Dipstick See Note Negative [facility] Comment: Unable to perform chemistry testing due to interfering substances, grossly bloody. Protein, Urine Dipstick See Note Negative [facility] Comment: Unable to perform chemistry testing due to interfering substances, grossly bloody. Bilirubin, Urine Dipstick See Note Negative [facility] Comment: Unable to perform chemistry testing due to interfering substances, grossly bloody. Clinical correlation required for positive Urine Bilirubin results as false positive may occur with some drugs and drug related products. If a false positive is suspected a serum total bilirubin should be considered if clinically indicated. Urobilinogen, Urine Dipstick See Note Normal [facility] Comment: Unable to perform chemistry testing due to interfering substances, grossly bloody. pH, Urn (dipstick) See Note 5.0 - 8.0 [facility] Comment: Unable to perform chemistry testing due to interfering substances, grossly bloody. Blood, Urine Dipstick See Note Negative [facility] Comment: Unable to perform chemistry testing due to interfering substances, grossly bloody. Ketone, Urine Dipstick See Note Negative [facility] Comment: Unable to perform chemistry testing due to interfering substances, grossly bloody. Nitrite, Urine Dipstick See Note Negative [facility] Comment: Unable to perform chemistry testing due to interfering substances, grossly bloody. Leukocytes, Urine Dipstick See Note Negative [facility] Comment: Unable to perform chemistry testing due to interfering substances, grossly bloody. Appearance, Urine Dipstick Turbid(A) Clear [facility] Comment: Unable to perform chemistry testing due to interfering substances, grossly bloody. Specific Bulger Urine Automated See Note 1.005 - 1.030 [facility] Comment: Unable to perform chemistry testing due to interfering substances, grossly bloody. Color, Urine Dipstick Red(A) [facility] Comment: Unable to perform chemistry testing due to interfering substances, grossly bloody. Reflex to Culture Yes [facility] Comment: Unable to perform chemistry testing due to interfering substances, grossly bloody. Indwelling Catheter Urine 07/16/2023 9:57 PM EDT 07/16/2023 10:24 PM EDT Narrative Resulting Agency Comment Spec In Lab Lorena Chandra MD URINE ORDERABLES [facility] [place] [address] * Carotid Duplex, Unilateral (07/16/2023 2:41 PM EDT) VB Text Report Department: Vascular Surgery Lab Patient: [id number] (MIRNA FLORES) CPT: 46941 Referring Physician: LORENA CHANDRA ?? Indications: ??Intra-op [...] Cell 10.6(H) 4.0 - 9.5 x10(3)/mc L [facility] Red Blood Cell 4.50(L) 4.58 - 5.54 x10(6)/mc L [facility] Hemoglobin 14.5 13.7 - 16.5 g/dL [facility] Hematocrit 43.6 40.5 - 48.5 % [facility] Mean Cell Volume 96.9(H) 82.9 - 93.1 fL [facility] Mean Cell Hemoglobin 32.2(H) 27.5 - 32.1 pg [facility] Mean Cell Hemoglobin Concentration 33.3 32.0 - 35.7 g/dL [facility] Platelet 229 145 - 357 x10(3)/mc L [facility] RDW Standard Deviation 46.9(H) 36.0 - 45.0 fL [facility] RDW coefficient of variation 13.2 11.4 - 13.8 % [facility] Mean Platelet Volume 10.4 7.6 - 12.9 fL [facility] NRBC% auto 0.0 % [facility] NRBC Absolute 0.000 0.000 - 0.000 x10(3)/mc L [facility] Blood 07/16/2023 9:52 AM EDT 07/16/2023 10:02 AM EDT Narrative Resulting Agency Comment Spec In Lab Lorena Chandra MD HEMATOLOGY ORDERABLE S [facility] [place] [address] * (ABNORMAL) Basic Metabolic Panel (non-fasting) (07/16/2023 9:52 AM EDT) Glucose 129 65 - 199 mg/dL [facility] Comment:Diabetes: >=200 mg/d L plus symptoms Blood Urea Nitrogen 18 10 - 20 mg/dL [facility] Creatinine 0.78(L) 0.80 - 1.50 mg/dL [facility] Sodium 141 135 - 145 mmol/L [facility] Potassium 4.0 3.5 - 5.0 mmol/L [facility] Comment: Please note: ??Patients with WBC >100,000 may have falsely elevated Potassium levels. ??For accurate Potassium quantification in these patients send serum separator tube (gold top) for subsequent determinations. ??Contact the Clinical Chemistry Laboratory if there are any questions. Chloride 103 98 - 107 mmol/L [facility] Carbon Dioxide 26 22 - 31 mmol/L [facility] [facility] Anion Gap 12 5 - 15 mmol/L [facility] Calcium 10.1 8.5 - 10.5 mg/dL [facility] Est Glomerular Filtration Rate 92 >=60 mL/min/1. 73 m?? [facility] Comment: This patient's estimated GFR was [...] In Lab Lorena Chandra MD CHEMISTRY ORDERABLES [facility] [place] [address] * Prealbumin (07/16/2023 9:52 AM EDT) Prealbumin 22 20 - 40 mg/dL [facility] Comment: Prealbumin levels are generally lower in the pediatric population; adult concentrations are usually attained near puberty. Blood 07/16/2023 9:52 AM EDT 07/16/2023 10:02 AM EDT Narrative Resulting Agency Comment Spec In Lab Lorena Chandra MD CHEMISTRY ORDERABLES [facility] [place] [address] * SCAN DOC: IMPLANTABLE DEVICES (07/16/2023 12:00 [...] occlusion with cerebral infarction Hematuria, unspecified type Left carotid artery stenosis Occlusion and stenosis of carotid artery without mention of cerebral infarction Hematuria, unspecified type Hematuria, unspecified type documented in this encounter Admitting Diagnoses Diagnosis Left carotid artery stenosis Occlusion and stenosis of carotid artery without mention of cerebral infarction documented in this encounter Administered Medications Inactive Administered Medications - up to 3 most recent administrations Medication Order MAR Action Action Date Dose Rate Site acetaminophen (Tylenol) tablet 1,000 mg 1,000 mg, Oral, ONCE, 1 dose, On Fri07/16/23 at 1230, Administer with a SIP of water only. Maximum dose of acetaminophen is 4,000 mg from all sources in 24 hours., Day of Surgery (Day of Procedure), Routine Given 07/16/2023 12:16 PM EDT 1,000 mg aspirin chewable tablet 81 mg 81 mg, Oral, DAILY, First dose on Fri07/17/23 at 0900, Until Discontinued, Routine Given 07/17/2023 8:23 AM EDT 81 mg clopidogreL (Plavix) tablet 75 mg 75 mg, Oral, DAILY, First dose on Fri07/17/23 at 0900, Until Discontinued, Routine Given 07/17/2023 8:23 AM EDT 75 mg hydrALAZINE (Apresoline) (20 mg/mL) injection 5 mg 5 mg, Intravenous, ONCE, 1 dose, On Fri07/16/23 at 1615, For SBP >140mmHg. Use after labetalol. , PACU Recovery Given 07/16/2023 4:06 PM EDT 5 mg lactated ringers infusion 1,000 mL, at 100 mL/hr, Intravenous, CONTINUOUS, Starting on Fri07/16/23 at 1230, Until Fri07/16/23 at 2153, Day of Surgery (Day of Procedure) Restarted 07/16/2023 12:34 PM EDT New Bag 07/16/2023 12:30 PM EDT 1,000 mLs 100 mL/hr ondansetron (pf) (Zofran) (2 mg/mL) injection 4 [...] in 45 minutes if ineffective. , Routine documented in this encounter Active and Recently [...] Tash 07/17/23 at 0900, Until Discontinued, Routine 08 (Given - Provid er: Malena Marin RN) atorvastatin (Lipitor) tablet 80 mg 80 mg, Oral, EVERY EVENING, First dose on Fri07/16/23 at 2200, Until Discontinued, Routine clopidogreL (Plavix) tablet 75 mg 75 mg, Oral, DAILY, First dose on Tash 07/17/23 at 0900, Until Discontinued, Routine 0823 (Given - Provid er: Malena Marin RN) hydrALAZINE (Apresoline) (20 mg/mL) injection 5 mg (COMPLETED) 5 mg, Intravenous, ONCE, 1 dose, On Fri07/16/23 at 1615, For SBP >140mmHg. Use after labetalol. , PACU Recovery 1606 (Given - Provider: Shahla Hawthorne, MORIAH) Continuous Medication Order 07/15/2023 07/16/2023 07/17/2023 lactated [...] hours documented in this encounter Care Teams Newspaper Clipper Relationship Specialty Start Date End Date Mirna Barrera DO [address] [place] [place] [address] PCP - General Family Medicine 07/01/18 documented as of this encounter
--- OUTSIDE RECORDS SUMMARY | 2024-07-21 19:27 | XMS_ITS | Encounter Summary ---
[place] [address] Care Team Providers Care Sander Setter Name Role Phone Camacho Barrera DO Primary Care Provider [phone] Encounter Details Date Type Department Care Team (Latest Contact Info) Description 09/09/2023 11:00 AM EDT [place] [address] Milagros Parra, STAFF DEVELOPMENT EDUCATOR [facility] [place] [address] Acute ischemic stroke; Left carotid artery stenosis; Primary hypertension; Paroxysmal atrial fibrillation; Hyperlipidemia, unspecified hyperlipidemia type Social History Tobacco Use Types Packs/Day Years Used Date Smoking Tobacco: Never Smokeless Tobacco: Never Alcohol Use Standard Drinks/Week Comments Yes 14 (1 standard drink = 0.6 oz pu re alcohol) 2-3 drinks/night [facility] Inpatient Questions Answer Date Recorded [...] Sign Reading Time Taken Comments Blood Pressure 122/72 09/09/2023 10:27 AM EDT Pulse - - Temperature - - Respiratory Rate - - Oxygen Saturation - - Inhaled Oxygen Concentration - - Weight - - Height - - Body Mass Index - - documented in this encounter Progress Notes * Milagros Parra, STAFF DEVELOPMENT EDUCATOR - 09/09/2023 11:00 AM EDT Images from the original note were not included. Cerebrovascular Disease and Stroke Program Department of Neurology [place] [id number] t: [phone] / f: [phone] [employer] Improving Post-Acute Care Transitions after Stroke Cmaacho Flores is a 77 y.o. male with PMHx of AFIB on Xarelto (s/p ablation), HLD, HTN, CAD (s/p PCI in 2006, BRENDA distal LAD x2 / distal Lcx x2, ramus x1 at [facility]), brain abscess (s/p surgery and ABX treatment in 2014) who presented with stuttering R hand numbness / weakness and was found to have several punctate infarcts in the left frontoparietal region. He is now s/p left CEA on 07/16. Per Chart Review: Camacho Flores is a 77 y.o. male who was admitted to the neurology service for further evaluation of stroke. #Stroke Neurological examination on admission was normal. Patient was monitored with frequent checks of vitals and neurological status. Telemetry monitoring showed sinus rhythm. Permissive HTN was allowed, with labetalol administered prn for SBP >220. Prior to discharge, we resumed his home lisinopril. MRI from the outside hospital demonstrated frontoparietal punctate infarcts on the L hemisphere. Seedetailed reports such as TTE, carotid duplex as below. 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 We discussed with his outpatient business asst clinic who felt it was safe for the patientto be on Xarelto and aspirin so he was discharged on dual therapy. We also increased his Atorvastatin to 80mg daily. Patient was evaluated by rehabilitation services and deemed appropriate for Home. Operations & Procedures: None Consultations: 1. PT CUS 05/21/2023 Interpretation: RIGHT: There is smooth plaque in [...] with normal antegrade Doppler waveforms and velocities. Interval History Repeat events or new symptoms: None Hospital readmissions/ED visits since discharge: None Residual deficits: right hand numbness has resolved Ongoing rehab: PT for back pain Tomas comes to the appointment today with his , Kisha. He denies any new or recurrent neurological signs or symptoms. He has not experienced any right hand numbness in particular. More concerning is the occurrences of 3 to 4 days of nosebleeds with serious gushing blood and weeping. He also had one episode of blood in his stool when he was on triple therapy. He has since stopped taking the aspirin and was advised by vascular surgery to stop xarelto for a couple of days. He has been back onplavix and xarelto for the last 1.5 weeks and has not experienced any recurrent nosebleeds, hematuria, or melena. He denies any abnormal bruising. He has been going to PT for his back pain on and off for the last 4 weeks a couple of times a week.[facility] and he stated that he passed out while waiting in the waiting room. He was diagnosed with a UTI at this time. He does not check his blood pressure at home. No data to display 05/22/2022 12:20 PM Stroke:PROMIS-10 Ltgosb17-Pbbzedyi Health Score 34.9 Hgslfh83-Hkkpvt Health Score 38.8 Health in general Fair Quality of life Fair Physical health Fair Mental health Good Satisfaction with social activities Fair Ability to carry out physical activities A little Rate of pain 4 Rate of fatigue Moderate Ability to carry out social activities Poor Bothered by emotional problems Sometimes No data to display No data to display No data to display No data to display No data to display Patient Active Problem List Diagnosis Code Brain [...] Comments) leukopenia Simvastatin Other (See Comments) Myalgia Outpatient Medications Marked as Taking for the 09/09/23 encounter (Office Visit) with Milagros Parra APRN Medication Sig Dispense Refill lisinopriL (Zestril) 5 mg tablet Take 5 mg by mouth daily. clopidogreL (Plavix) 75 mg tablet Take 1 [...] needed for Chest pain. 90 tablet 12 Exam Patient Vitals for the past 24 hrs: BP 09/09/23 1027 122/72 General: alert, NAD Neuro exam: MSE: alert, oriented to person, place, time, situation, follows simple and complex commands, speechfluent with no dysarthria, able to repeat a sentence, names objects. CN: PERRL, no nystagmus, EOMI, facial sensation intact, no facial droop or asymmetry, tongue protrudes midline, uvula and palate elevate symmetrically, trap symmetric strength bilaterally Motor: 5/5 RUE 5/5 LUE 5/5 RLE 5/5 LLE Normal bulk and tone - FREDO intact on RUE and symmetric with LUE Sensation: intact light touch Coordination: intact finger nose finger, no dysmetria, no tremor Gait: able to perform heel to kay, presented in wheelchair due to back pain Modified Kern Scale (MRS) 0: No symptoms at all 1: No significant disability despite symptoms; able to carry out all usual duties and activities 2: Slight disability; unable to carry out all previous activities, but able to look after own affairs without assistance 3: Moderate disability; requiring some help, but able to walk without assistance 4: Moderate disability; unable to walk without assistance and unable to attend to own bodily needs without assistance 5: Severe disability; bedridden, incontinent and requiring constant nursing care and attention 6: Data Lipids Lipid Panel Lab Results Component Value Date CHLPL 174 05/20/2023 HDL 47 05/20/2023 CHOLHDL 3.7 05/20/2023 LDLDIRECT 112 05/20/2023 Last 3 Hemoglobin A1Cs Lab Results Component Value Date HA1C 5.4 05/20/2023 HA1C 5.6 07/26/2018 Clinical Impression and recommendations Camacho Flores is a 77 y.o.male with AFIB on Xarelto (s/p ablation), HLD, HTN, CAD (s/p PCI in 2006, BRENDA distal LAD x2 / distal Lcx x2, ramus x1 at [facility]), brain abscess (s/p surgery and ABXtreatment in 2014) who is evaluated today as post-discharge hospital check for recent stuttering R hand numbness / weakness. Stroke work up revealed several punctate infarcts in the left frontoparietal region. Most likely etiology of stroke was atheroembolism. He is now s/p left CEA on 07/16. Neurological exam today is non-focal and reassuring. He continues on Xarelto, plavix, and high intensity statin. If patient was to continue to experience abnormal bleeding, may consider referral to cardiology for MICHAEL-c to help minimize bleeding risk. No medication or changes to the plan made today. Neurologically stable without repeat events or new symptoms. Denies need for further interventions at this time to support his stroke recovery. Continue to partner with PCP to maximize management of modifiable risk factors for stroke risk reduction. #Neuro - Several punctate infarcts in the left frontoparietal region -No medication changes were made -Continue antiplatelet regimen per vascular surgery recs -Continue Xarelto 20mg daily -Continue Atorvastatin 80mg daily -Return to clinic as needed Education provided today covered: patient-specific vascular risk factors, cause of the TIA/stroke, prognosis and risk of recurrence, medications for TIA/stroke prevention, potential side effects of these medications, management of modifiable risk factors including heart healthy diet, increased physical activity, maintaining smoke free status, moderation in alcohol, weight management, blood pressure, glucose and cholesterol control, warning signs of stroke, plan to contact EMS in event of recurrent symptoms. Compliance with treatment and regular follow-up with PCP was emphasized. This visit was a total of 45 minutes which was spent on pre-charting, reviewing results of diagnostic studies, as well as patient education and counseling as detailed above. Milagros Parra APRN #[id number] Department [place] [address] documented in this encounter Plan of Treatment Upcoming Encounters Date Type Department Care Team (Late st Contact Info) Description 09/08/2024 9:40 AM EDT Office Visit Cardiology at [address] [address] Gonzales Torres MD [facility] [place] [address] documented as of this encounter Visit Diagnoses Diagnosis Acute ischemic stroke Unspecified cerebral artery occlusion with cerebral infarction Left carotid artery stenosis Occlusion and stenosis of carotid artery without mention of cerebral infarction Primary hypertension Unspecified essential hypertension Paroxysmal atrial fibrillation Atrial fibrillation Hyperlipidemia, unspecified hyperlipidemia type documented in this encounter Care Teams Sander Setter Relationship Specialty Start Date End Date Camacho Barrera DO [address] [place] [address] PCP - General Family Medicine 07/01/18 documented as of this encounter
--- OUTSIDE RECORDS SUMMARY | 2024-07-21 19:27 | XMS_ITS | Encounter Summary ---
[place] [address] Care Team Providers Care Parts Manager Name Role Phone Camacho Barrera DO Primary Care Provider [phone] Reason for Referral * Diagnostic Test (Routine) - Closed Specialty Diagnoses / Procedures Referred By Contac t Referred To Contact Radiology Diagnoses Hematuria, unspecified type Procedures CT Abdomen & Pelvis wo Contrast Akila Herman MD [facility] [place] [address] [facility] [place] [address] Referral ID Status Reason Start Date Expiration Date V isits Requested Visits Authorized [id number] Closed Specialty Service Requested 07/16/2023 01/16/2025 1 1 Reason for Visit * Diagnostic Test (Routine) - Closed Specialty Diagnoses / Procedures Referred By Contac t Referred To Contact Radiology Diagnoses Hematuria, unspecified type Procedures CT Abdomen & Pelvis wo Contrast Akila Herman MD [facility] [place] [address] [facility] [place] [address] Referral ID Status Reason Start Date Expiration Date V isits Requested Visits Authorized [id number] Closed Specialty Service Requested 07/16/2023 01/16/2025 1 1 Encounter Details Date Type Department Care Team (Latest Contact Info) Description 09/09/2023 9:46 AM EDT - 09/09/2023 11:43 AM EDT Hospital En[place] [address] Ramiro Chandra MD [facility] [place] [address] Hematuria, unspecified type Discharge Disposition: Home Social History Tobacco Use [...] on file documented as of this encounter Medications at Time of Discharge [...] 1 % Cream Apply topically as needed. [employer] CosmeticsTouch Verio test strips Strip USE TO CHECK BLOOD GLUCOSE DAILY DIRECTED 03/19/2023 atorvastatin (Lipitor) 80 mg tablet Take 1 tablet by mouth every evening. 90 tablet 3 05/21/2023 timoloL (Timoptic) 0.5 % Drops Place 1 drop into the left eye 2 times daily. 06/19/2022 nitrofurantoin (Macrobid) 100 mg capsule Take 100 mg by mouth 2 times daily. For 7 days 08/15/2023 02/11/2024 lisinopriL (Zestril) 5 mg tablet Take 5 mg by mouth daily. 02/11/2024 digoxin (Lanoxin) 125 mcg (0.125 mg) tablet Take 125 mcg by mouth daily. 08/04/2023 02/11/2024 HYDROcodone-acetaminoph en ([place]) 5-325 mg tablet Take by mouth every 6 hours as needed. 08/04/2023 02/11/2024 aspirin 81 mg chewable tablet Take 81 mg by mouth daily. 30 tablet 3 05/22/2023 02/11/2024 rivaroxaban (Xarelto) 20 mg tabletIndications:Parox ysmal atrial fibrillation Take 1 tablet by mouth daily. 90 tablet 3 02/11/2023 02/11/2024 nitroGLYcerin (NITROSTAT) 0.4 mg Tablet, Sublingual Place 1 tablet under the tongue every 5 minutes as needed for Chest pain. 90 tablet 12 08/01/2018 02/11/2024 documented as of this encounter Plan of Treatment Upcoming Encounters Date Type Department Care Team (Late st Contact Info) Description 09/08/2024 9:40 AM EDT Office Visit Cardiology at [address] [address] Gonzales Torres MD [facility] [place] [address] documented as of this encounter Procedures Procedure Name Priority Date/Time Associated Diagnosis Comments CT ABDOMEN AND PELVIS WO CONTRAST Routine 09/09/2023 9:52 AM EDT Hematuria, unspecified type documented in this encounter Results * CT Abdomen & Pelvis wo Contrast [...] who have questions please contact the health hospice spiritual care coordinator that requested your imaging first. ? Electronically signed by: Lia Lucas MD, [facility] ([phone]), at 09/09/2023 11:12 AM Narrative 09/09/2023 11:12 AM EDT EXAMINATION: CT [...] patients who have questions please contactthe health hospice spiritual care coordinator that requested your imaging first. Electronically signed by: Lia Lucas MD, [facility]([phone]), at 09/09/2023 11:12 AM Ramiro Chandra MD IMG CT ORDERABLES documented in this encounter Visit Diagnoses Diagnosis Hematuria, unspecified type documented in this encounter Care Teams Parts Manager Relationship Specialty Start Date End Date Camacho Barrera DO [address] [place] [address] PCP - General Family Medicine 07/01/18 documented as of this encounter
--- OUTSIDE RECORDS SUMMARY | 2024-07-21 19:27 | XMS_ITS | Encounter Summary ---
[place] [address] Care Team Providers Care Supervisor [employer] Name Role Phone Camacho Barrera DO Primary Care Provider [phone] Encounter Details Date Type Department Care Team (Late st Contact Info) Description 08/14/2023 12:10 AM EDT Ancillary Procedure [place] [phone] Camacho Barrera DO [address] [place] [address] Social History Tobacco Use Types Packs/Day Years Used Date Smoking Tobacco: Never Smokeless Tobacco: Never Alcohol Use Standard Drinks/Week Comments Yes 14 (1 standard drink = 0.6 oz pu re alcohol) 2-3 drinks/night [facility] Inpatient Questions Answer Date Recorded Does [...] AM EDT Office Visit Cardiology at [address] [place] [address] Gonzales Torres MD [facility] [place] [address] documented as of this encounter Procedures Procedure Name Priority Date/Time Associated Diagnosis Comments FILM LIBRARY STORAGE ONLY CT SPINE Routine 08/14/2023 12:10 AM EDT documented in this encounter Results * Film Library- Storage Only CT Spine (08/14/2023 12:10 AM EDT) Narrative [facility] - 08/15/2023 4:44 AM EDT This exam is auto-finalizing. It's purpose is for storage only. Camacho Barrera DO [facility] FILM LIBRARY ORD ERABLES Performing Organization Address City/State/[facility] Co de Phone Number [place], [place] documented in this encounter Visit Diagnoses Not on filedocumented in this encounter Care Teams Supervisor [employer] Relationship Specialty Start Date End Date Camacho Barrera DO [address] [place] [address] PCP - General Family Medicine 07/01/18 documented as of this encounter
--- OUTSIDE RECORDS SUMMARY | 2024-07-21 19:27 | XMS_ITS | Encounter Summary ---
Author Organization formerly [place] [address] Care Team Providers Care Fruit Rancher Name Role Phone Mirna Barrera DO Primary Care Provider [phone] Encounter Details Date Type Department Care Team (Latest Contact Info) Description 09/09/2023 11:44 AM EDT - 09/09/2023 11:59 PM EDT Hospital En[place] [phone] Lorena Chandra MD [facility] [place] [address] Hematuria, unspecified type Discharge Disposition: Home Social [...] 1 % Cream Apply topically as needed. [employer] VerBizanga test strips Strip USE TO CHECK BLOOD [...] by mouth daily. 08/04/2023 02/11/2024 HYDROcodone-acetaminoph en ([place]) 5-325 mg tablet Take by mouth every [...] 9:40 AM EDT Office Visit Cardiology at [address] [place] [phone] Gonzales Torres MD [facility] [place] [address] documented as of this encounter Procedures Procedure Name Priority Date/Time Associated Diagnosis Comments US RETROPERITONEAL COMPLETE Routine 09/09/2023 12:43 PM EDT Hematuria, unspecified type documented in this encounter Results * US [...] who have questions, please contact the health palliative care physician that requested your imaging first. ? David Madera, Staff Physician Electronically Signed Final Report ?? 09/09/2023 01:50 pm Narrative 09/09/2023 1:50 PM EDT Renal ? (Signed Final 09/09/2023 01:50 pm) PATIENT INFO: ID #: ? [id number] ?: ??[birth year] (77 yrs)(M) Name: ? MIRNA FLORES ? Visit Date: 09/09/2023 12:24 pm PERFORMED BY: Attending: ?Santy HOOD, David John Resident: ? Yuko HOOD, Marvin Tomas Performed By: ? Sera [facility] Kiki Referred By: ?LORENA CHANDRA Location: ? [place] SERVICE(S) PROVIDED: URETRO - Retroperitoneal Complete - [id number] ? [id number] INDICATIONS: gross hematuria COMPARISON: CT: Abdomen/Pelvis 09/09/2023 [...] 09/09/2023 01:50 pm) PATIENT INFO: ID #: [id number] : [birth year] (77 yrs)(M) Name: MIRNA FLORES Visit Date: 09/09/2023 12:24 pm PERFORMED BY: Attending: David Madera MD Resident: Marvin Huntley MD Performed By: Kiki Zamora RDMS Referred By: LORENA CHANDRA Location: [place] SERVICE(S) PROVIDED: URETRO - Retroperitoneal Complete - [id number] INDICATIONS: gross hematuria COMPARISON: CT: Abdomen/Pelvis 09/09/2023 [...] who have questions, please contact the health palliative care physician that requested your imaging first. David Madera, Staff Physician Electronically Signed Final Report 09/09/2023 01:50 pm Lorena Chandra MD IMG US GEN ORDERABLE S documented in this encounter Visit Diagnoses Diagnosis Hematuria, unspecified type documented in this encounter Care Teams Fruit Rancher Relationship Specialty Start Date End Date Mirna Barrera DO [address] [place] [address] PCP - General Family Medicine 07/01/18 documented as of this encounter
--- OUTSIDE RECORDS SUMMARY | 2024-07-21 19:27 | XMS_ITS | Encounter Summary ---
[place] [address] Care Team Providers Care Diagnostic Cardiac Sonographer Name Role Phone Camacho Barrera DO Primary Care Provider [phone] Encounter Details Date Type Department Care Team (Late st Contact Info) Description 07/31/2023 12:05 AM EDT Ancillary Procedure [place] [phone] Camacho Barrera DO [address] [place] [address] Social History Tobacco Use Types Packs/Day Years Used Date Smoking Tobacco: Never Smokeless Tobacco: Never Alcohol Use Standard Drinks/Week Comments Yes 14 (1 standard drink = 0.6 oz pu re alcohol) 2-3 drinks/night [facility] Inpatient Questions Answer Date Recorded Does [...] 9:40 AM EDT Office Visit Cardiology at [address] [place] [phone] Gonzales Torres MD [facility] [place] [address] documented as of this encounter Procedures Procedure Name Priority Date/Time Associated Diagnosis Comments FILM LIBRARY STORAGE ONLY CT CHEST ABDOMEN PELVIS Routine 07/31/2023 12:05 AM EDT documented in this encounter Results * Film Library- Storage Only CT Chest Abdomen Pelvis (07/31/2023 12:05 AM EDT) Narrative [facility] - 08/01/2023 9:30 AM EDT This exam is auto-finalizing. It's purpose is for storage only. Camacho Barrera DO [facility] FILM LIBRARY ORD ERABLES Performing Organization Address City/State/[facility] Co de Phone Number [place], [place] documented in this encounter Visit Diagnoses Not on filedocumented in this encounter Care Teams Diagnostic Cardiac Sonographer Relationship Specialty Start Date End Date Camacho Barrera DO [address] [place] [address] PCP - General Family Medicine 07/01/18 documented as of this encounter
--- OUTSIDE RECORDS SUMMARY | 2024-07-21 19:27 | XMS_ITS | Encounter Summary ---
Author Organization [facility] [place] [address] Care Team Providers Care Assistant District Attorney Name Role Phone Camacho Barrera DO Primary Care Provider [phone] Encounter Details Date Type Department Care Team (Late st Contact Info) Description 09/09/2023 2:20 PM EDT Office [place] [phone] Jaz Daniel MD [facility] [place] [address] Hematuria, unspecified type Social History Tobacco Use Types Packs/Day Years Used Date Smoking Tobacco: Never Smokeless Tobacco: Never Alcohol Use Standard Drinks/Week Comments Yes 14 (1 standard drink = 0.6 oz pu re alcohol) 2-3 drinks/night [facility] Inpatient Questions Answer Date Recorded Does Anyone [...] Sign Reading Time Taken Comments Blood Pressure 116/88 09/09/2023 2:03 PM EDT Pulse 123 09/09/2023 2:03 PM EDT Temperature - - Respiratory Rate - - Oxygen Saturation - - Inhaled Oxygen Concentration - - Weight - - Height - - Body Mass Index - - documented in this encounter Progress Notes * Jaz Daniel MD - 09/09/2023 2:20 PM EDT UROLOGY CLINIC VISIT CC:gross hematuria HPI Camacho Flores is a 77 y.o. male presenting for follow up of in gross hematuria inpt consult 07/16/23. Per consult note: history of Afib, HTN, CAD s/p PCI (2006), stroke, and carotid stenosis s/p left carotid endarterectomy today [therapeutic anticoagulation] c/b traumatic straight cath at the end of the case with subsequent Coude Lutz placement. Urology is consulted for hematuria. He did not require additional interventions for hematuria. He passed a TOV 07/21/23/ he was additionally started on xarelto in addition to plavix. 09/09/2023: He has had no recurrent episodes of blood. Has a remote history of kidney stones Denies bothersome LUTS - nocturia x 2- not bothered. Today he denies fevers, chills, flank pain, gross hematuria, dysuria He denies any new back or bone pain, no weight loss that is unexplained. His appetite is good. IPSS 09/05/2023 4:59 PM IPSS Responses International Prostate Symptom Score 11 (Moderate LUTS) IPSS: ncomplete emptying Not at all IPSS: Frequency About half the time IPSS: Intermittency Less than 1 time in 5 IPSS: Urgency Less than half the time IPSS: Weak Stream About half the time IPSS: Straining Not at all IPSS: Nocturia 2 times IPSS: Quality of life Mixed - about equally satisfied and dissatisfied Prostate cancer screening history: Remotely with PCP - no known family history 09/05/2023 5:02 PM PAVITHRA Responses Sexual Health Inventory for Men 13 (Mild to Moderate ED) PAVITHRA: Confidence, level - past 6 months Low PAVITHRA: Penetration - past 6 months A few times (less than half the time) PAVITHRA: Penetration, maintain - past 6 months A few times (less than half the time) PAVITHRA: Erection, maintain - past 6 months Difficult PAVITHRA: Sexual satisfaction - past 6 months Most times (much more than half the time) PAST MEDICAL HISTORY Past Medical History: Diagnosis Date A-fib Brain abscess CAD (coronary artery disease) HLD (hyperlipidemia) HTN (hypertension) PAST SURGICAL HISTORY Past Surgical History: Procedure Laterality Date PRO CARDIOVERSION ELECTIVE ARRHYTHMIA EXTERNAL N/A 08/28/2022 CARDIOVERSION-ELECTIVE (WRVU 2.25) performed by Fred Maki MD at [facility] MAIN OR PRO STEREO BX/ASPIR/EXCIS, INTRACRANIAL LESN Right 01/27/2015 @STEREOTACTIC BX,ASP, OR EXC.-INTRACRANIAL LESION, W/SCAN performed by Jose Small MD at [facility] MAIN OR PRO STEREOTACTIC CPTR ASSTD PX CRANIAL, INTRADURAL Right 01/27/2015 STEREOTACTIC COMPUTER-ASSTD NAVIGATIONAL CRANIAL INTRADURAL performed by Jose Small MD at [facility] MAIN OR PRO THROMBOENDARTECTMY NECK, NECK INCIS Left 07/16/2023 @ENDARTERECTOMY, CAROTID, VERTEBRAL,SUBCLAVIAN W\WO PATCH GRAFT (WRVU 21.16) performed by Ramiro Chandra MD at [facility] MAIN OR SOCIAL HISTORY Social History Tobacco Use Smoking status: Never Smokeless tobacco: Never Vaping Use Vaping Use: Never used Substance Use Topics Alcohol use: Yes Alcohol/week: 14.0 standard drinks Types: 14 Shots of liquor per week Comment: 2-3 drinks/night Drug use: No FAMILY HISTORY No known history of malignancy or urolithiasis Family History Problem Relation Age of Onset Alzheimer Disease Brother ALLERGY Allergies Allergen Reactions Bee Pollen Anaphylaxis Bee Stings Use to carry Epi Pen, Penicillins Angioedema States as a child, had facial, lip swelling. Shellfish Containing Products Nausea And Vomiting SHRIMP only. Blotches, swelling, Shrimp Ceftriaxone Other (See Comments) leukopenia Keppra [Levetiracetam] Other (See Comments) leukopenia Simvastatin Other (See Comments) Myalgia HOME MEDICATIONS \\ Current Outpatient Medications Medication Instructions acetaminophen (TYLENOL) 500 mg, Oral, EVERY 4 HOURS PRN aspirin 81 mg, Oral, DAILY atorvastatin (LIPITOR) 80 mg, Oral, EVERY EVENING clopidogreL (PLAVIX) 75 mg, Oral, DAILY clotrimazole (LOTRIMIN) 1 % Cream Topical (Top), PRN digoxin (LANOXIN) 125 mcg, Oral, DAILY HYDROcodone-acetaminophen (Sayner) 5-325 mg tablet Oral, EVERY 6 HOURS PRN lisinopriL (ZESTRIL) 5 mg, Oral, DAILY nitrofurantoin (Macrobid) 100 mg capsule 100 mg, Oral, 2 TIMES DAILY, For 7 days nitroGLYcerin (NITROSTAT) 0.4 mg, Sublingual, EVERY 5 MIN PRN OneTouch Verio test strips Strip USE TO CHECK BLOOD GLUCOSE DAILY DIRECTED rivaroxaban (XARELTO) 20 mg, Oral, DAILY timoloL (Timoptic) 0.5 % Drops 1 drop, Left Eye, 2 TIMES DAILY 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 A full 12 point review of systems was performed and notable for the findings listed in the HPI, otherwise negative 09/05/2023 4:55 PM 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 Constitutional Weight loss Weakness Pain Ear / nose / throat / mouth Nose bleeds Eyes None of the above Respiratory Shortness of breath Cardiovascular Fluttering heart beat (heart palpitations) Gastrointestinal Blood in stools Change in stools Skin, hair Changes in skin Musculoskeletal Back pain Joint pain Muscle stiffness Reduced range of motion Unable to walk/difficulty walking Neurological Balance difficulty, dizziness Fainting Hematologic / Lymphatic Easy bruising or bleeding Genitourinary Frequent urination Other Symptoms L4 and L5 misaligned. treated for UTI occasionally VITALS No data found. PHYSICAL EXAM Estimated body mass index is 25.68 kg/m?? as calculated from the following: Height as of 08/15/23: 188 cm (6' 2). Weight as of 08/15/23: 90.7 kg (200 lb). Alert and oriented to person, place and time. NAD Regular rate NCAT Non labored breathing on RA Abdomen soft, non distended, non tender to palpation No CVA tenderness. PVR: 30ml Recent Results (from the past 24 hour(s)) Basic Metabolic Panel (non-fasting) Result Value Ref Range Glucose Lvl 116 65 - 199 mg/dL BUN 19 10 - 20 mg/dL Creatinine 0.77 (L) 0.80 - 1.50 mg/dL Sodium 142 135 - 145 mmol/L Potassium 3.9 3.5 - 5.0 mmol/L Chloride 106 98 - 107 mmol/L CO2 25 22 - 31 mmol/L Anion Gap 11 5 - 15 mmol/L Calcium 9.7 8.5 - 10.5 mg/dL Estimated GFR 92 >=60 mL/min/1.73 m?? Urinalysis with reflex Culture Specimen: Clean Catch Urine Result Value Ref Range Glucose UA Negative Negative mg/dL Protein UA Trace (A) Negative mg/dL Bilirubin UA Negative Negative mg/dL Urobilinogen UA Normal Normal mg/dL pH UA 5.0 5.0 - 8.0 Blood UA Trace (A) Negative mg/dL Ketones UA Trace (A) Negative mg/dL Nitrite UA Negative Negative Leukocytes UA Small (A) Negative mcL Appearance UA Cloudy (A) Clear Spec [place] UA 1.027 1.005 - 1.030 Color UA Yellow Yellow Culture Reflexed Yes Urinalysis Microscopic Exam Result Value Ref Range RBC UA 1 0 - 3 /HPF WBC UA 14 (H) 0 - 3 /HPF Bacteria UA Few (A) None /HPF Squam Epith UA 2 <=4 /HPF Hyaline Cast UA 12 (H) 0 - 2 /LPF CaOx Gia UA Moderate (A) None /HPF UA: negative IMAGING: I personally reviewed the following imaging: CT A/P w/o contrast 1. Normal sonographic appearance of the bilateral kidneys. No renal calculi, mass or hydronephrosis. 2. Mildly trabeculated bladder contour suggestive of bladder outlet obstruction. ASSESSMENT: Gross hematuria in setting of therapeutic anticoagulation / catheter placement. Hematuria resolved.We discussed options including completing formal hematuria work up with cysto / CTU vs. Obs. He is opposed to further work up at this point. Given the resolution of hematuria and lack of obvious mass on limited non-con CT this seems reasonable - though he understands we could be missing pathologysuch as a low lying bladder tumor. LUTs, mild, minimal PVR, not that bothered Discussed scheduled follow up vs. PRN, he elects PRN PLAN: RTC PRN I have extensively counseled on reasons to call or return including dysuria with fevers/flank pain,inability to urinate, significant gross hematuria/clots, questions or concerns. Thank you for allowing me to participate in this patient's care. Please do not hesitate to contact me with further questions. Jaz Daniel MD documented in this encounter Plan of Treatment Upcoming Encounters Date Type Department Care Team (Late st Contact Info) Description 09/08/2024 9:40 AM EDT Office Visit Cardiology at [place] [address] [place] [address] Gonzales Torres MD [facility] [place] [address] documented as of this encounter Results * (ABNORMAL) Basic Metabolic Panel (non-fasting) (09/09/2023 8:28 AM EDT) Glucose 116 65 - 199 mg/dL [facility] Comment:Diabetes: >=200 mg/d L plus symptoms Blood Urea Nitrogen 19 10 - 20 mg/dL [facility] Creatinine 0.77(L) 0.80 - 1.50 mg/dL [facility] Sodium 142 135 - 145 mmol/L [facility] Potassium 3.9 3.5 - 5.0 mmol/L [facility] Comment: Please note: ??Patients with WBC >100,000 may have falsely elevated Potassium levels. ??For accurate Potassium quantification in these patients send serum separator tube (gold top) for subsequent determinations. ??Contact the Clinical Chemistry Laboratory if there are any questions. Chloride 106 98 - 107 mmol/L [facility] Carbon Dioxide 25 22 - 31 mmol/L [facility] Anion Gap 11 5 - 15 mmol/L [facility] Calcium 9.7 8.5 - 10.5 mg/dL [facility] Est Glomerular Filtration Rate 92 >=60 mL/min/1. 73 m?? [facility] Comment: This patient's estimated GFR was [...] In Lab Jaz Daniel MD CHEMISTRY ORDERABLES [facility] [place] [address] documented in this encounter Visit Diagnoses Diagnosis Hematuria, unspecified type documented in this encounter Care Teams Assistant District Attorney Relationship Specialty Start Date End Date Camacho Barrera DO [address] [place] [address] PCP - General Family Medicine 07/01/18 documented as of this encounter
--- OUTSIDE RECORDS SUMMARY | 2024-07-21 19:27 | XMS_ITS | Encounter Summary ---
[place] [address] Care Team Providers Care Twisting Operator Name Role Phone Camacho Barrera DO Primary Care Provider [phone] Encounter Details Date Type Department Care Team (Latest Contact Info) Description 07/21/2023 10:00 AM EDT Clinical [place] [phone] Indwelling Lizama catheter present Social History Tobacco Use Types Packs/Day Years Used Date Smoking Tobacco: Never Smokeless Tobacco: Never Alcohol Use Standard Drinks/Week Comments Yes 14 (1 standard drink = 0.6 oz pu re alcohol) 2-3 drinks/night [facility] Inpatient Questions Answer Date Recorded Does [...] on file documented as of this encounter Progress Notes * Kaia Walters RN - 07/21/2023 10:00 AM EDT Patient presents today for a voiding trial and catheter removal s/p endarterectomy . The patient was given Macrobid 100mg 1 by mouth. All incisions well approximated. No signs of infection noted. Procedure: 80ml normal saline instilled via lizama catheter. Balloon deflated. Lizama gently removed. Patient voided 60 ml's. FOS good. Good control. PVR: 23 cc measured in the supine position with the bladder scanner shortly after the patient had voided. Kaia Walters RN documented in this encounter Plan of Treatment Upcoming Encounters Date Type Department Care Team (Late st Contact Info) Description 09/08/2024 9:40 AM EDT Office Visit Cardiology at [address] [address] Gonzales Torres MD [facility] [place] [address] documented as of this encounter Visit Diagnoses Diagnosis Indwelling Lizama catheter present documented in this encounter Administered Medications Inactive Administered Medications - up to 3 most recent administrations Medication Order MAR Action Action Date Dose Rate Site nitrofurantoin (Macrobid) capsule 100 mg 100 mg, Oral, ONCE, 1 dose, On 07/21/23 at 1130, DO NOT SPLIT CRUSH OR OPEN, Routine, Indication for (Active or Suspected): Prophylaxis Given 07/21/2023 11:34 AM EDT 100 mg documented in this encounter Care Teams Twisting Operator Relationship Specialty Start Date End Date Camacho Barrera DO [address] [place] [address] PCP - General Family Medicine 07/01/18 documented as of this encounter
--- OUTSIDE RECORDS SUMMARY | 2024-07-21 19:27 | XMS_ITS | Encounter Summary ---
[place] [address] Care Team Providers Care President And Chief Commercial Officer Name Role Phone Camacho Barrera DO Primary Care Provider [phone] Encounter Details Date Type Department Care Team (Late st Contact Info) Description 08/01/2023 External [place] [address] Social History Tobacco Use Types Packs/Day Years [...] 9:40 AM EDT Office Visit Cardiology at [address] [place] [phone] Gonzales Torres MD [facility] [place] [address] documented as of this encounter Procedures Procedure Name Priority Date/Time Associated Diagnosis Comments ECG SCAN Routine 08/01/2023 9:49 AM EDT documented in this encounter Results * Scan Doc: ECG (08/01/2023 9:49 AM EDT) Historical Provider MD COULTER MGR SCAN EX T ORDR/RSLT documented in this encounter Visit Diagnoses Not on filedocumented in this encounter Care Teams President And Chief Commercial Officer Relationship Specialty Start Date End Date Camacho Barrera DO [address] [place] [address] PCP - General Family Medicine 07/01/18 documented as of this encounter
--- OUTSIDE RECORDS SUMMARY | 2024-07-21 19:27 | XMS_ITS | Encounter Summary ---
Author Organization [facility] [place] [address] Care Team Providers Care Social Studies Department Chair Name Role Phone Camacho Barrera DO Primary Care Provider [phone] Encounter Details Date Type Department Care Team (Latest Contact Info) Description 07/20/2023 Travel Social History Tobacco Use Types Packs/Day [...] AM EDT Office Visit Cardiology at [address] [place] [address] Gonzales Torres MD [facility] [place] [address] documented as of this encounter Visit Diagnoses Not on filedocumented in this encounter Care Teams Social Studies Department Chair Relationship Specialty Start Date End Date Camacho Barrera DO [address] [place] [address] PCP - General Family Medicine 07/01/18 documented as of this encounter
--- OUTSIDE RECORDS SUMMARY | 2024-07-21 19:27 | XMS_ITS | Encounter Summary ---
Author [place] [address] Care Team Providers Care Care Professional Name Role Phone Camacho Barrera DO Primary Care Provider [phone] Encounter Details Date Type Department Care Team (Late st Contact Info) Description 06/24/2023 Orders Only [place] [address] Abigail Adams RN Pre-op testing; Carotid stenosis, asymptomatic, bilateral Social History Tobacco Use Types Packs/Day Years Used Date Smoking Tobacco: Never Smokeless Tobacco: Never Alcohol Use Standard Drinks/Week Comments Yes 14 (1 standard drink = 0.6 oz pu re alcohol) 2-3 drinks/night [facility] Inpatient Questions Answer Date Recorded Does Anyone [...] AM EDT Office Visit Cardiology at [address] [place] [address] Gonzales Torres MD [facility] [place] [address] documented as of this encounter Results * Prealbumin (07/16/2023 9:52 AM EDT) Prealbumin 22 20 - 40 mg/dL [facility] Comment: Prealbumin levels are generally lower in the pediatric population; adult concentrations are usually attained near puberty. Blood 07/16/2023 9:52 AM EDT 07/16/2023 10:02 AM EDT Narrative Resulting Agency Comment Spec In Lab Ramiro Chandra MD CHEMISTRY ORDERABLES [facility] [place] [address] * (ABNORMAL) Basic Metabolic Panel (non-fasting) (07/16/2023 9:52 AM EDT) Glucose 129 65 - 199 mg/dL [facility] Comment:Diabetes: >=200 mg/d L plus symptoms Blood Urea Nitrogen 18 10 - 20 mg/dL [facility] Creatinine 0.78(L) 0.80 - 1.50 mg/dL [facility] Sodium 141 135 - 145 mmol/L [facility] Potassium 4.0 3.5 - 5.0 mmol/L [facility] Comment: Please note: ??Patients with WBC >100,000 may have falsely elevated Potassium levels. ??For accurate Potassium quantification in these patients send serum separator tube (gold top) for subsequent determinations. ??Contact the Clinical Chemistry Laboratory if there are any questions. Chloride 103 98 - 107 mmol/L [facility] Carbon Dioxide 26 22 - 31 mmol/L [facility] Anion Gap 12 5 - 15 mmol/L [facility] Calcium 10.1 8.5 - 10.5 mg/dL [facility] Est Glomerular Filtration Rate 92 >=60 mL/min/1. 73 m?? [facility] Comment: This patient's estimated GFR was [...] Comment Spec In Lab Ramiro Chandra MD CHEMISTRY ORDERABLES Performing Organization Address City/State/[facility] Co de Phone Number [facility] [place] [address] * (ABNORMAL) Hemogram (07/16/2023 9:52 AM EDT) White Blood Cell 10.6(H) 4.0 - 9.5 x10(3)/mc L [facility] Red Blood Cell 4.50(L) 4.58 - 5.54 x10(6)/mc L [facility] Hemoglobin 14.5 13.7 - 16.5 g/dL [facility] Hematocrit 43.6 40.5 - 48.5 % [facility] Mean Cell Volume 96.9(H) 82.9 - 93.1 fL [facility] Mean Cell Hemoglobin 32.2(H) 27.5 - 32.1 pg [facility] Mean Cell Hemoglobin Concentration 33.3 32.0 - 35.7 g/dL [facility] Platelet 229 145 - 357 x10(3)/mc L [facility] RDW Standard Deviation 46.9(H) 36.0 - 45.0 fL [facility] RDW coefficient of variation 13.2 11.4 - 13.8 % [facility] Mean Platelet Volume 10.4 7.6 - 12.9 fL [facility] NRBC% auto 0.0 % [facility] NRBC Absolute 0.000 0.000 - 0.000 x10(3)/mc L [facility] Blood 07/16/2023 9:52 AM EDT 07/16/2023 10:02 AM EDT Narrative Resulting Agency Comment Spec In Lab Ramiro Chandra MD HEMATOLOGY ORDERABLE S [facility] [place] [address] documented in this encounter Visit Diagnoses Diagnosis Pre-op testing Preoperative examination, unspecified Carotid stenosis, asymptomatic, bilateral documented in this encounter Care Teams Care Professional Relationship Specialty Start Date End Date Camacho Barrera DO [address] [place] [address] PCP - General Family Medicine 07/01/18 documented as of this encounter
--- OUTSIDE RECORDS SUMMARY | 2024-07-21 19:27 | XMS_ITS | Encounter Summary ---
[place] [address] Care Team Providers Care Ultrasound Spec Name Role Phone Camacho Barrera DO Primary Care Provider [phone] Encounter Details Date Type Department Care Team (Late st Contact Info) Description 07/16/2023 Notes [place] [address] Katharine Gusman Social History Tobacco Use Types Packs/Day Years [...] as of this encounter Progress Notes * Katharine Gusman - 07/16/2023 12:35 PM EDTSummary: Informed Consent Note Objective of visit: Meet with the patient to provide information regarding study protocol [id number], answer questions or concerns about study plan and evaluate interest in study participation. Information Provided: Protocol was reviewed with subject including, a description of the proposed care, information collected, and follow-up including duration of subject's participation in study. Potential discomforts and risks were reviewed. The subject was informed regarding the uncertainties, both in terms of benefit as well as risks that are part of participation in registry studies. Discussed confidentiality of subject's health information as specified in the protocol. Subject was advised that he may discontinue participation at any time and that refusing to participate will not compromise the patient's access to treatment options or care. Financial responsibilities in the context of research participation reviewed. The subject was given written information regarding the protocol and was offered adequate time to review the information. The subject was given adequate time to ask questions and review concerns, all of which were answered to their satisfaction. Assessment/Outcome: Subject verbalized understanding of protocol and consents for participation. Subject signed and dated consent, signed & dated copy given to subject. Original, signed informed consent retained by Department of Anesthesiology and Perioperative Medicine for record keeping; consent will be scanned into eD. Written informed consent was obtained prior to any study data collection. documented in this encounter Plan of Treatment Upcoming Encounters Date Type Department Care Team (Late st Contact Info) Description 09/08/2024 9:40 AM EDT Office Visit Cardiology at [address] [address] Gonzales Torres MD [facility] [place] [address] documented as of this encounter Visit Diagnoses Not on filedocumented in this encounter Care Teams Ultrasound Spec Relationship Specialty Start Date End Date Camacho Barrera DO [address] [place] [address] PCP - General Family Medicine 07/01/18 documented as of this encounter
--- OUTSIDE RECORDS SUMMARY | 2024-07-21 19:28 | XMS_ITS | Encounter Summary ---
Author Organization Formerly [facility] [place] [address] Care Team Providers Care Environmental Compliance Manager Name Role Phone Camacho Barrera DO Primary Care Provider [phone] Encounter Details Date Type Department Care Team (Late st Contact Info) Description 01/14/2023 Interpretation Only [address] [address] Unknown None Social History Tobacco Use Types Packs/Day Years Used Date Smoking Tobacco: Never Smokeless Tobacco: Never Alcohol Use Standard Drinks/Week Comments Yes 14 (1 standard drink = 0.6 oz pu re alcohol) 2-3 drinks/night Sex and Gender Information Value Date Recorded Sex Assigned at Male 10/01/2021 4:04 PM EDT Gender Identity Not on file Sexual Orientation Not on file documented as of this encounter Plan of Treatment Upcoming Encounters Date Type Department Care Team (Late st Contact Info) Description 09/08/2024 9:40 AM EDT Office Visit Cardiology at [address] [place] [phone] Gonzales Torres MD [facility] [place] [address] documented as of this encounter Procedures Procedure Name Priority Date/Time Associated Diagnosis Comments ARABELLA POCUS Routine 01/14/2023 documented in this encounter Results * ARABELLA POCUS (01/14/2023) Anatomical Region Laterality Modality Other 01/14/2023 Narrative 01/14/2023 12:00 AM EST POCUS Image Procedure Note Unknown - 01/16/2023 POCUS Image Unknown EA IMAGES documented in this encounter Visit Diagnoses Not on filedocumented in this encounter Care Teams Environmental Compliance Manager Relationship Specialty Start Date End Date Camacho Barrera DO [address] [place] [address] PCP - General Family Medicine 07/01/18 documented as of this encounter
--- OUTSIDE RECORDS SUMMARY | 2024-07-21 19:28 | XMS_ITS | Encounter Summary ---
Author Organization [facility] [place] [address] Care Team Providers Care Glass Etcher Name Role Phone Camacho Barrera DO Primary Care Provider [phone] Encounter Details Date Type Department Care Team (Late st Contact Info) Description 08/14/2022 Ancillary Procedure [place] [phone] Camacho Barrera DO [address] [place], [place] [id number] Social History Tobacco Use Types Packs/Day Years Used Date Smoking Tobacco: Never Smokeless Tobacco: Never Alcohol Use Standard Drinks/Week Comments Not Asked 0 (1 standard drink = 0.6 oz pur e alcohol) 2-3 drinks/night Sex and Gender Information Value Date Recorded Sex Assigned at Male 10/01/2021 4:04 PM EDT Gender Identity Not on file Sexual Orientation Not on file documented as of this encounter Plan of Treatment Upcoming Encounters Date Type Department Care Team (Late st Contact Info) Description 09/08/2024 9:40 AM EDT Office Visit Cardiology at [address] [place] [address] Goznales Torres MD [facility] [place] [address] documented as of this encounter Procedures Procedure Name Priority Date/Time Associated Diagnosis Comments FILM LIBRARY STORAGE ONLY CT SPINE Routine 08/14/2022 12:00 AM EDT documented in this encounter Results * Film Library- Storage Only CT Spine (08/14/2022 12:00 AM EDT) Narrative [facility] - 08/15/2023 4:36 AM EDT This exam is auto-finalizing. It's purpose is for storage only. Camacho Barrera DO [facility] FILM LIBRARY ORD ERABLES Performing Organization Address City/State/[facility] Co de Phone Number [place], [place] documented in this encounter Visit Diagnoses Not on filedocumented in this encounter Care Teams Glass Etcher Relationship Specialty Start Date End Date Camacho Barrera DO [address] [place] [address] PCP - General Family Medicine 07/01/18 documented as of this encounter
--- OUTSIDE RECORDS SUMMARY | 2024-07-21 19:28 | XMS_ITS | Encounter Summary ---
Author Organization [facility] [place] [address] Care Team Providers Care Lard Refiner Name Role Phone Camacho Barrera DO Primary Care Provider [phone] Encounter Details Date Type Department Care Team (Late st Contact Info) Description 05/18/2023 Ancillary Procedure [place] [phone] Social History Tobacco Use Types Packs/Day Years [...] 9:40 AM EDT Office Visit Cardiology at [address] [place] [phone] Gonzales Torres MD [facility] [place] [address] documented as of this encounter Procedures Procedure Name Priority Date/Time Associated Diagnosis Comments FILM LIBRARY STORAGE ONLY CT HEAD STAT 05/18/2023 12:00 AM EDT documented in this encounter Results * Film Library- Storage Only CT Head (05/18/2023 12:00 AM EDT) Narrative [employer], Auditing User - 05/20/2023 11:33 AM EDT This exam is auto-finalizing. It's purpose is for storage only. Camacho Barrera DO [facility] FILM LIBRARY ORD ERABLES documented in this encounter Visit Diagnoses Not on filedocumented in this encounter Care Teams Lard Refiner Relationship Specialty Start Date End Date Camacho Barrera DO [address] [facility] [place] [address] PCP - General Family Medicine 07/01/18 documented as of this encounter
--- OUTSIDE RECORDS SUMMARY | 2024-07-21 19:28 | XMS_ITS | Encounter Summary ---
Author Organization [facility] [place] [address] Care Team Providers Care Voting Machine Repairer Name Role Phone Camacho Barrera DO Primary Care Provider [phone] Reason for Visit * Auth/Cert Specialty Diagnoses / Procedures Referred By Contac t Referred To Contact Diagnoses Other persistent atrial fibrillation atrial fibrillation Procedures PRO CARDIOVERSION ELECTIVE ARRHYTHMIA EXTERNAL CARDIOVERSION-ELECTIVE (WRVU 2.25) Fred Maki MD [facility] [place] [address] [facility] Referral ID Status Reason Start Date Expiration Date Visits Re quested Visits Authorized [id number] 1 1 Encounter Details Date Type Department Care Team (Latest Contact Info) Description 08/28/2022 10:17 AM EDT - 08/28/2022 12:32 PM EDT Hospital Encounter [place] [address] Fred Maki MD [facility] [place] [address] Persistent atrial fibrillation Discharge Disposition: Home Social History Tobacco Use [...] Sign Reading Time Taken Comments Blood Pressure 106/64 08/28/2022 11:45 AM EDT Pulse 73 08/28/2022 11:45 AM EDT Temperature 36.3 ??C (97.3 ??F) 08/28/2022 11:41 AM E DT Respiratory Rate 17 08/28/2022 11:45 AM EDT Oxygen Saturation 99% 08/28/2022 11:45 AM EDT Inhaled Oxygen Concentration - - Weight 97.1 kg (214 lb) 08/28/2022 10:42 AM EDT Height 188 cm (6' 2) 08/28/2022 10:42 AM EDT Body Mass Index 27.48 08/28/2022 10:42 AM EDT documented in this encounter Discharge Instructions * Discharge Instructions* Natalie Lilly, RN - 08/28/2022 11:53 AM EDT Images from the original note were not included. CARDIOVERSION INFORMATION What are the risks of cardioversion? Cardioversion is a frequently performed procedure with a low risk of serious side effects. Serious complications occur in less than one out of a hundred patients. These complications include: A very slow heartbeat (bradycardia) A very fast heartbeat (tachycardia) Stroke Pneumonia You may have redness, burning, stinging, or itching on the skin where the pads were placed. If you go home and are uncomfortable, there are several ointments that you can purchase over the counter touse on your skin. For example: Anesthetic ointment, such as Lanacaine Hydrocortisone 1% (steroid) cream in the form of Cortaid or Kericort Some patients report that applying ice packs to the pad sites decreases the discomfort. Call the cardiologists who performed the test if you need a prescription for a stronger medication. What instructions should I follow for the next few days after the cardioversion? Activity: Rest after the procedure. You may be sleepy for several hours. Be careful on the stairs during the remainder of the day; you may be unsteady on your feet. Do not smoke at home if you are alone for 24 hours following your procedure. Do not drive, operate machinery, drink alcoholic beverages, or make important decisions for 24 hours. The medications may change your reaction time or judgment without your awareness. Diet: Follow your regular diet as tolerated. If nausea occurs, start with clear liquids, and progress slowly to your regular diet. Medications: Your heart medications may not be the same after your cardioversion. Check with your doctor about what medicines to take. Follow-up care: If you have return of the symptoms associated with your abnormal heartbeat, contact your doctor. If you need a stronger medicine to treat your skin where the adhesive pads were placed, call the physician compensation analyst construction producer at . We will schedule a follow-up appointment with the physician compensation analyst here, or you will be scheduled to see your local doctor soon. Any specific instructions that apply to you will be given to you prior to discharge from the hospital. If you have any questions about this procedure, call the Cardiology Department at: Friday through Friday 8:00 a.m. to 4:30 p.m. * Patient Instructions* Harriett Badillo APRN - 08/28/2022 10:23 AM EDT CARDIOVERSION INFORMATION What are the risks of cardioversion? Cardioversion is a frequently performed procedure with a low risk of serious side effects. Serious complications occur in less than one out of a hundred patients. These complications include: A very slow heartbeat (bradycardia) A very fast heartbeat (tachycardia) Stroke Pneumonia You may have redness, burning, stinging, or itching on the skin where the pads were placed. If you go home and are uncomfortable, there are several ointments that you can purchase over the counter touse on your skin. For example: Anesthetic ointment, such as Lanacaine Hydrocortisone 1% (steroid) cream in the form of Cortaid or Kericort Some patients report that applying ice packs to the pad sites decreases the discomfort. Call the cardiologists who performed the test if you need a prescription for a stronger medication. What instructions should I follow for the next few days after the cardioversion? Activity: Rest after the procedure. You may be sleepy for several hours. Be careful on the stairs during the remainder of the day; you may be unsteady on your feet. Do not smoke at home if you are alone for 24 hours following your procedure. Do not drive, operate machinery, drink alcoholic beverages, or make important decisions for 24 hours. The medications may change your reaction time or judgment without your awareness. Diet: Follow your regular diet as tolerated. If nausea occurs, start with clear liquids, and progress slowly to your regular diet. Medications: Your heart medications may not be the same after your cardioversion. Check with your doctor about what medicines to take. Continue metoprolol Continue Xarelto- no interruptions for any procedures for 30 days. Follow-up care: If you have return of the symptoms associated with your abnormal heartbeat, contact your doctor. If you need a stronger medicine to treat your skin where the adhesive pads were placed, call the physician compensation analyst construction producer at . We will schedule a follow-up appointment with the physician compensation analyst here, or you will be scheduled to see your local doctor soon. September 11, 2022 9am at [facility] with Dr. Torres for follow upafter cardioversion. Any specific instructions that apply to you will be given to you prior to discharge from the hospital. If you have any questions about this procedure, call the Cardiology Department at: Friday through Friday 8:00 a.m. to 4:30 p.m. documented in this encounter Medications at Time of Discharge Medication Sig Dispensed Refills Start Date End Date timoloL (Timoptic) 0.5 % Drops Place 1 drop into the left eye 2 times daily. 06/19/2022 lisinopriL (Zestril) 20 mg Tablet Take 20 mg by mouth daily. 05/22/2022 08/13/2023 metoprolol succinate XL (Toprol-XL) 100 mg Tablet Sustained Release 24 hr Take 100 mg by mouth daily. 09/11/2022 rivaroxaban (Xarelto) 20 mg TabletIndications:Paroxy smal atrial fibrillation Take 1 tablet by mouth daily. 90 tablet 1 06/17/2021 02/10/2023 nitroGLYcerin (NITROSTAT) 0.4 mg Tablet, Sublingual Place 1 tablet under the tongue every 5 minutes as needed for Chest pain. 90 tablet 12 08/01/2018 02/11/2024 atorvastatin (LIPITOR) 10 mg Tablet Take 10 mg by mouth daily. 05/21/2023 documented as of this encounter H&P Notes * Harriett Badillo APRN - 08/28/2022 10:21 AM EDT Patient Name: Camacho Flores Patient Age: 76 y.o. Birthdate: 1945 Admit date: 08/28/2022 Attending Physician: Fred Maki MD Please see outpatient note today for details. Harriett Badillo APRN 08/28/22 documented in this encounter Miscellaneous Notes * Op Note - Fred Maki MD - 08/28/2022 11:27 AM EDT Images from the original note were not included. [facility] [place] Operative Note Patient Name: Camacho Flores : 1945 MR#: [id number] Case Date: 08/28/2022 Diamond Die Driller: Fred Maki MD, PhD Referring Provider: Gonzales Torres MD Preoperative diagnosis: atrial flutter Postoperative diagnosis: sinus rhythm Procedure(s) (LRB): CARDIOVERSION-ELECTIVE (WRVU 2.25) Anesthesia: MAC - please see anesthesia documentation for details. HPI/Surgical Indications: Camacho Flores is a 76 y.o. male referred for direct current cardioversion. The patient attests to having been been anticoagulated without interruption for => 21 days. Procedure Description: Time-out was performed per protocol. The patient was sedated by members of the Anesthesia Department. Please refer to that documentation for details. When appropriate, the patient was given a single 120 J R-wave synchronized shock via lou-posterior pads with prompt conversion to normal sinus rhythm with a 3 second conversion pause. Disposition: aroused from sedation, and taken to the recovery room in a stable condition Condition: doing well without problems Plan: Post-cardioversion 12-lead ECG. Discharge home when discharge criteria are met. Continue anticoagulation Attestation: I performed this procedure without assistance from a resident or fellow. Fred Maki MD, PhD, [facility] Cardiac Electrophysiology 08/28/2022 11:51 AM documented in this encounter Plan of Treatment Upcoming Encounters Date Type Department Care Team (Late st Contact Info) Description 09/08/2024 9:40 AM EDT Office Visit Cardiology at [address] [address] Gonzales Torres MD [facility] [place] [address] documented as of this encounter Procedures Procedure Name Priority Date/Time Associated Diagnosis Comments EKG 12-LEAD STAT 08/28/2022 12:09 PM EDT Persistent atrial fibrillation Cardioversion Elective Arrhythmia External (27224) 08/28/2022 11:20 AM EDT Persistent atrial fibrillation CARDIOVERSION-OR Routine 08/28/2022 10:3 1 AM EDT Persistent atrial fibrillation documented in this encounter Results * EKG 12 Lead (08/28/2022 12:09 PM EDT) Ventricular rate 72 BPM MUSE SYSTEM Atrial Rate 72 BPM MUSE SYSTEM P-R Interval 168 ms MUSE SYSTEM QRS Duration 76 ms MUSE SYSTEM Q-T Interval 436 ms MUSE SYSTEM QTC Calculated (Bezet) 477 ms MUSE SYSTEM Calculated P [place] 77 degrees MUSE SYSTEM Calculated R [place] 27 degrees MUSE SYSTEM Calculated T [place] 114 degrees MUSE SYSTEM INTERPRETATION Normal sinus rhythm Nonspecific T wave abnormality Prolonged QTc Abnormal ECG When compared with ECG of 28-AUG-2022 09:14, (unconfirmed) Sinus rhythm has replaced Atrial flutter Vent. rate has decreased BY ??42 BPM T wave inversion no longer evident in Inferior leads Confirmed by MD Mckniney Danette ([id number]) on 08/28/2022 7:59:47 PM MUSE SYSTEM 08/28/2022 12:0 9 PM EDT 08/28/2022 7:59 PM EDT Harriett Badillo JOSE ECG ORDERABLES Fly[employer] SYSTEM documented in this encounter Visit Diagnoses Diagnosis Persistent atrial fibrillation Atrial fibrillation documented in this encounter Active and Recently Administered Medications Times are shown in EDT. Continuous Medication Order 08/26/2022 08/27/2022 08/28/2022 lactated ringers infusion (CANCELED) 1,000 mL, at 100 mL/hr, Intravenous, CONTINUOUS, Starting on Fri08/28/22 at 1100, Until Fri08/28/22 at 1230, Day of Surgery (Day of Procedure) 1116 (New Bag - Prov ider: Belen Hayes CRNA)1135 (Anesthesia Volume Adjustment - Provider: Belen Hayes CRNA) documented in this encounter Care Teams Voting Machine Repairer Relationship Specialty Start Date End Date Camacho Barrera DO [address] [place] [address] PCP - General Family Medicine 07/01/18 documented as of this encounter
--- OUTSIDE RECORDS SUMMARY | 2024-07-21 19:28 | XMS_ITS | Encounter Summary ---
Author Organization [facility] [place] [address] Care Team Providers Care Diesel Trailer Mechanic Name Role Phone Camacho Barrera DO Primary Care Provider [phone] Reason for Visit * Auth/Cert Specialty Diagnoses / Procedures Referred By Contac t Referred To Contact Diagnoses Other persistent atrial fibrillation atrial fibrillation Procedures PRO CARDIOVERSION ELECTIVE ARRHYTHMIA EXTERNAL CARDIOVERSION-ELECTIVE (WRVU 2.25) Fred Maki MD [facility] [address] [facility] Referral ID Status Reason Start Date Expiration Date Visits Re quested Visits Authorized [id number] 1 1 Encounter Details Date Type Department Care Team (Latest Contact Info) Description 08/28/2022 8:15 AM EDT Laboratory Appointment Lab [address] [place] [address] Persistent atrial fibrillation Social History Tobacco Use [...] Encounters Date Type Department Care Team (Late Contact Info) Description 09/08/2024 9:40 AM EDT Office Visit Cardiology at [place] [address] [place] [address] Gonzales Torres MD [facility] [place] [address] documented as of this encounter Procedures Procedure Name Priority Date/Time Associated Diagnosis Comments HC VENIPUNCTURE Routine 08/28/2022 8:23 AM EDT Persistent atrial fibrillation BASIC METABOLIC PANEL Routine 08/28/2022 8:23 AM EDT Persistent atrial fibrillation documented in this encounter Results * Basic Metabolic Panel (non-fasting) (08/28/2022 8:23 AM EDT) Glucose 124 65 - 199 mg/dL [facility] Comment:Diabetes: >=200 mg/d L plus symptoms Blood Urea Nitrogen 15 10 - 20 mg/dL [facility] Creatinine 1.00 0.80 - 1.50 mg/dL [facility] Sodium 141 135 - 145 mmol/L [facility] Potassium 4.4 3.5 - 5.0 mmol/L [facility] Comment: Please note: ??Patients with WBC >100,000 may have falsely elevated Potassium levels. ??For accurate Potassium quantification in these patients send serum separator tube (gold top) for subsequent determinations. ??Contact the Clinical Chemistry Laboratory if there are any questions. Chloride 103 98 - 107 mmol/L [facility] Carbon Dioxide 27 22 - 31 mmol/L [facility] Anion Gap 11 5 - 15 mmol/L [facility] Calcium 10.1 8.5 - 10.5 mg/dL [facility] Est Glomerular Filtration Rate 78 >=60 mL/min/1. 73 m?? [facility] Comment: This patient's estimated GFR [...] and symptoms in addition to eGFR. Blood 08/28/2022 8:23 AM EDT 08/28/2022 8:37 AM EDT Narrative Resulting Agency Comment Spec In Lab Harriett Sammi Aby GLUCOSE AND SYRUP WEIGHER CHEMISTRY ORDERABLES Performing Organization Address City/[facility]/ZIP Co de Phone Number [facility] [place] [address] * Magnesium (08/28/2022 8:23 AM EDT) Magnesium 0.87 0.69 - 1.07 mmol/L [facility] Blood 08/28/2022 8:23 AM EDT 08/28/2022 8:37 AM EDT Narrative Resulting Agency Comment Spec In Lab Harriett Sammi Aby GLUCOSE AND SYRUP WEIGHER CHEMISTRY ORDERABLES Performing Organization Address City/[facility]/ZIP Co de Phone Number [facility] [place] [address] documented in this encounter Visit Diagnoses Diagnosis Persistent atrial fibrillation Atrial fibrillation documented in this encounter Care Teams Diesel Trailer Mechanic Relationship Specialty Start Date End Date Camacho Barrera DO [address] [place] [address] PCP - General Family Medicine 07/01/18 documented as of this encounter
--- OUTSIDE RECORDS SUMMARY | 2024-07-21 19:28 | XMS_ITS | Encounter Summary ---
Author Organization Formerly [facility] [place] [address] Care Team Providers Care Car Wrecker Name Role Phone Camacho Barrera DO Primary Care Provider [phone] Reason for Visit * Reason Comments Atrial Fibrillation S/p ablation 2018 Encounter Details Date Type Department Care Team (Late st Contact Info) Description 02/05/2023 10:40 AM EST Office Visit Cardiology at [address] [place] [address] Gonzales Torres MD [facility] [place] [address] Tricuspid valve insufficiency, unspecified etiology Social History Tobacco Use Types Packs/Day Years [...] Sign Reading Time Taken Comments Blood Pressure 113/68 02/05/2023 10:47 AM EST Pulse 71 02/05/2023 10:47 AM EST per ECG Temperature - - Respiratory Rate - - Oxygen Saturation - - Inhaled Oxygen Concentration - - Weight 93.9 kg (207 lb) 02/05/2023 10:47 AM EST Height 188 cm (6' 2) 02/05/2023 10:47 AM EST Body Mass Index 26.58 02/05/2023 10:47 AM EST documented in this encounter Progress Notes * Gonzales Torres MD - 02/05/2023 10:40 AM EST Images from the original note were not included. Clinical Cardiac Electrophysiology Consult Patient ID Camacho Flores [id number] Camacho Flores is referred to the EP clinic by Dr Nelson. Chief Complaint Paroxysmal atrial fibrillation s/p ablation [...] conduction at a man rate of 109/minute. ?? The possible reasons for this were discussed [...] has impacted hi exertional tolerance and stamina...' In January of this year, he was admitted to with rapidly conducted atypical atrial flutter in the setting of pneumonia and heart failure. An echo during that admission showed moderate to severe TR and an estimated RVSP of 39mmHg. He was commenced on digoxin for rate control. He required 5 days of ceftriaxone and doxycycline. Zio was ordered, is not yet available. He has continued to feel a little short of breath with exertion. He has backed off some of his medicines - stopped his diltiazem and digoxin. Mild lightheadedness, no syncope. No chest pain. No heart failure symptoms. Overall, feels much better now than a few weeks ago. Problem List Patient Active Problem List Diagnosis ??? Premature ventricular beats Zio (December 2018): 8.6% burden, 2 morphologies prevalent Zio (August 2020):??11.8% burden, 2 morphologies prevalent ??? Status post ablation of atrial fibrillation ??? ASCVD (arteriosclerotic cardiovascular disease) PCI in 2005 at [facility]: stents to LAD x2, LCx x2, ramus ??? Atrial fibrillation Diagnosed 2018, on rivaroxaban, s/p DCCV ??? Hypertension ??? HLD (hyperlipidemia) ??? Chest pain ??? Brain abscess Review of Systems Review of Systems Cardiovascular: Positive for dyspnea on exertion. Negative for palpitations. Meds Current Outpatient Medications Medication Sig Dispense Refill ??? metoprolol succinate XL (Toprol-XL) 50 mg Tablet Sustained Release 24 hr Take 1.5 tablets by mouth 2 times daily. (Patient taking differently: Take 50 mg by mouth 2 times daily.) 270 tablet 3 ??? lisinopriL (Zestril) 20 mg Tablet Take 20 mg by mouth daily. ??? timoloL (Timoptic) 0.5 % Drops 2 times daily. ??? rivaroxaban (Xarelto) 20 mg Tablet Take 1 tablet by mouth daily. 90 tablet 1 ??? nitroGLYcerin (NITROSTAT) 0.4 mg Tablet, Sublingual Place 1 tablet under the tongue every 5 minutes as needed for Chest pain. 90 tablet 12 ??? atorvastatin (LIPITOR) 10 mg Tablet Take 10 mg by mouth daily. No current facility-administered medications for this visit. Social History Social History Socioeconomic History ??? Marital status: Spouse name: Not on file ??? Number of children: Not on file ??? Years of education: Not on file ??? Highest education level: Not on file Occupational History ??? Not on file Tobacco Use ??? Smoking status: Never ??? Smokeless tobacco: Never Vaping Use ??? Vaping Use: Never used Substance and Sexual Activity ??? Alcohol use: Yes Alcohol/week: 14.0 standard drinks Types: 14 Shots of liquor per week Comment: 2-3 drinks/night ??? Drug use: No ??? Sexual activity: Not on file Other Topics Concern ??? 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 Social Determinants of Health Financial Resource Strain: Not on file Food Insecurity: Not on file Transportation Needs: Not on file Physical Activity: Not on file Housing Stability: Not on file Family History Family History Problem Relation Age of Onset ??? Alzheimer Disease Brother Exam Patient Vitals for the past 24 hrs: Pulse BP 02/05/23 1047 71 113/68 Physical Exam Constitutional: Comments: Body mass index is 26.58 kg/m??. HENT: Mouth/Throat: Pharynx: No oropharyngeal exudate. Eyes: Conjunctiva/sclera: Conjunctivae normal. Cardiovascular: Rate and Rhythm: Bradycardia present. Pulses: Normal pulses. Pulmonary: Effort: Pulmonary effort is normal. Skin: General: Skin is warm. Neurological: General: No focal deficit present. Mental Status: He is alert. Psychiatric: Mood and Affect: Mood normal. I have personally reviewed the ECG: sinus rhythm, 53 bpm, NV 140 ms, QRS 80 ms, QT 480 ms, no brugada, or pre-excitation, no Long QT Impression Camacho Flores is seen in the EP clinic for follow-up of his paroxysmal atrial fibrillation. He hadan atrial fibrillation ablation (incomplete posterior wall isolation, cavotricuspid isthmus ablation), in 2018. He did well for a number of years after that, but recently had an episode of recurrenceof atrial fibrillation, necessitating cardioversion, which he attributes to effects after a COVID booster. It does sound like he was quite unwell following this booster. He was recently hospitalized with a pneumonia, heart failure, and atrial fibrillation/flutter with ventricular response that was rapid.. Today he is in atrial fibrillation with a controlled ventricular response. Otherwise he is doing well, Recommendations / Plan A) Continue with current meds B) Contingency for reintroducing digoxin, if he has rapid ventricular conduction in atrial fibrillation/flutter C) We will follow-up with results of the Zio patch when available D) I have ordered a repeat echocardiogram, to evaluate LV function and tricuspid regurgitation E) Otherwise if he is doing well, routine follow-up in about 6 months time. GONZALES TORRES MD Cardiac Electrophysiology [facility] 25 minutes of this 30 minute encounter were spent preparing to see the patient (e.g. review of tests), obtaining and/or reviewing separately obtained history, performing a medically appropriate examination and/or evaluation, counseling and educating the patient, ordering medications, tests, or procedures, documenting clinical information in the electronic medical record, Independently interpreting results Cc: Camacho Barrera DO documented in this encounter Plan of Treatment Upcoming Encounters Date Type Department Care Team (Late st Contact Info) Description 09/08/2024 9:40 AM EDT Office Visit Cardiology at [address] [phone] Gonzales Torres MD [facility] [address] documented as of this encounter Visit Diagnoses Diagnosis Tricuspid valve insufficiency, unspecified etiology documented in this encounter Care Teams Car Wrecker Relationship Specialty Start Date End Date Camacho Barrera DO [address] [place] [id number] PCP - General Family Medicine 07/01/18 documented as of this encounter
--- OUTSIDE RECORDS SUMMARY | 2024-07-21 19:28 | XMS_ITS | Encounter Summary ---
Author Organization [facility] [place] [address] Care Team Providers Care Naval Gunfire Liaison Officer Name Role Phone Camacho Barrera DO Primary Care Provider [phone] Encounter Details Date Type Department Care Team (Late st Contact Info) Description 04/20/2022 Ancillary Procedure [place] [phone] Camacho Barrera DO [address], [place] [id number] Social History Tobacco Use Types Packs/Day Years [...] 9:40 AM EDT Office Visit Cardiology at [address] [place] [address] Gonzales Torres MD [facility] [place] [address] documented as of this encounter Procedures Procedure Name Priority Date/Time Associated Diagnosis Comments FILM LIBRARY STORAGE ONLY DX SPINE Routine 04/20/2022 12:00 AM EDT documented in this encounter Results * Film Library- Storage Only DX Spine (04/20/2022 12:00 AM EDT) Narrative [facility] - 05/10/2022 4:09 PM EDT This exam is auto-finalizing. It's purpose is for storage only. Camacho Barrera DO [facility] FILM LIBRARY ORD ERABLES Performing Organization Address City/State/[facility] Co de Phone Number [place], [place] documented in this encounter Visit Diagnoses Not on filedocumented in this encounter Care Teams Naval Gunfire Liaison Officer Relationship Specialty Start Date End Date Camacho Barrera DO [address] [facility] [place] [address] PCP - General Family Medicine 07/01/18 documented as of this encounter
--- OUTSIDE RECORDS SUMMARY | 2024-07-21 19:28 | XMS_ITS | Encounter Summary ---
Author Organization [facility] [place] [address] Care Team Providers Care Banjo Repair Person Name Role Phone Camacho Barrera DO Primary Care Provider Encounter Details Date Type Department Care Team (Latest Contact Info) Description 05/26/2023 Travel Social History Tobacco Use Types Packs/Day [...] AM EDT Office Visit Cardiology at [address] [place] [address] Gonzales Torres MD [facility] [place] [address] documented as of this encounter Visit Diagnoses Not on filedocumented in this encounter Care Teams Banjo Repair Person Relationship Specialty Start Date End Date Camacho Barrera DO [address] [place] [address] PCP - General Family Medicine 07/01/18 documented as of this encounter
--- OUTSIDE RECORDS SUMMARY | 2024-07-21 19:28 | XMS_ITS | Encounter Summary ---
[place] [address] Care Team Providers Care Scientific Investigator Name Role Phone Camacho Barrera DO Primary Care Provider [phone] Reason for Visit * Reason Onset Date Comments Medication Refill 2021 Encounter Details Date Type Department Care Team (Late st Contact Info) Description 2021 Refill Cardiology at [address] [address] Kenny Nelson MD [facility] [place] [address] Medication Refill Social History Tobacco Use Types Packs/Day Years [...] 9:40 AM EDT Office Visit Cardiology at [address] [place] [phone] Gonzales Torres MD [facility] [place] [address] documented as of this encounter Visit Diagnoses Not on filedocumented in this encounter Care Teams Scientific Investigator Relationship Specialty Start Date End Date Camacho Barrera DO [address] [place] [address] PCP - General Family Medicine 07/01/18 documented as of this encounter
--- OUTSIDE RECORDS SUMMARY | 2024-07-21 19:28 | XMS_ITS | Encounter Summary ---
Author Organization [facility] [place] [address] Care Team Providers Care Executive Administrative Asst Name Role Phone Camacho Barrera DO Primary Care Provider [phone] Encounter Details Date Type Department Care Team (Late st Contact Info) Description 07/31/2022 Orders Only Cardiology at [address] [phone] Harriett Badillo APRN [facility] [place] [address] Persistent atrial fibrillation Social History Tobacco Use [...] as of this encounter Miscellaneous Notes * Addendum Note - Harriett Badillo APRN - 07/31/2022 12:16 PM EDTAddended by: HARRIETT BADILLO on: 07/31/2022 12:21 PM Modules accepted: Orders documented in this encounter Plan of Treatment Upcoming Encounters Date Type Department Care Team (Late st Contact Info) Description 09/08/2024 9:40 AM EDT Office Visit Cardiology at [address] [place] [address] Gonzales Torres MD [facility] [place] [address] documented as of this encounter Results * Magnesium (08/28/2022 8:23 AM EDT) Magnesium 0.87 0.69 - 1.07 mmol/L [facility] Blood 08/28/2022 8:23 AM EDT 08/28/2022 8:37 AM EDT Narrative Resulting Agency Comment Spec In Lab Harriett Badillo APRN CHEMISTRY ORDERABLES Performing Organization Address City/State/[facility] Co de Phone Number [facility] [place] [address] * Basic Metabolic Panel (non-fasting) (08/28/2022 8:23 AM EDT) Glucose 124 65 - 199 mg/dL [facility] Comment:Diabetes: >=200 mg/d L plus symptoms Blood Urea Nitrogen 15 10 - 20 mg/dL [facility] Creatinine 1.00 0.80 - 1.50 mg/dL [facility] Sodium 141 135 - 145 mmol/L [facility] Potassium 4.4 3.5 - 5.0 mmol/L [facility] Comment: Please note: ??Patients with WBC >100,000 may have falsely elevated Potassium levels. ??For accurate Potassium quantification in these patients send serum separator tube (gold top) for subsequent determinations. ??Contact the Clinical Chemistry Laboratory if there are any questions. Chloride 103 98 - 107 mmol/L [facility] Carbon Dioxide 27 22 - 31 mmol/L [facility] Anion Gap 11 5 - 15 mmol/L [facility] Calcium 10.1 8.5 - 10.5 mg/dL [facility] Est Glomerular Filtration Rate 78 >=60 mL/min/1. 73 m?? [facility] Comment: This patient's estimated [...] Resulting Agency Comment Spec In Lab Harriett Badillo APRN CHEMISTRY ORDERABLES Performing Organization Address City/State/[facility] Co de Phone Number [facility] [place] [address] documented in this encounter Visit Diagnoses Diagnosis Persistent atrial fibrillation Atrial fibrillation documented in this encounter Care Teams Executive Administrative Asst Relationship Specialty Start Date End Date Camacho Barrera DO [address] [place] [address] PCP - General Family Medicine 07/01/18 documented as of this encounter
--- OUTSIDE RECORDS SUMMARY | 2024-07-21 19:28 | XMS_ITS | Encounter Summary ---
[place] [address] Care Team Providers Care Wrapping Clerk Name Role Phone Mirna Barrera DO Primary Care Provider [phone] Reason for Visit * Reason Comments Numbness From home for ED * Auth/Cert (Routine) Specialty Diagnoses / Procedures Referred By Mike johnson Referred To Contact Diagnoses Acute ischemic stroke Procedures ER OBSVO TO EMERGENCY IPI Fidel Barnett MD [facility] [place] [address] [facility] Referral ID Status Reason Start Date Expiration Date Visits Re quested Visits Authorized [id number] 1 1 Encounter Details Date Type Department Care Team (Latest Contact Info) Description 05/20/2023 10:59 AM EDT - 05/21/2023 2:20 PM EDT Hospital Encounter Neuro Special Care Unit Level 5 [place] [address] Tylor Serna MD [facility] [place] [address] Fidel Barnett MD [facility] [place] [address] Acute ischemic stroke (Primary Dx) Discharge Disposition: Home Social History Tobacco Use [...] Sign Reading Time Taken Comments Blood Pressure 129/66 05/21/2023 12:06 PM EDT Pulse 69 05/20/2023 8:00 PM EDT Temperature 36.5 ??C (97.7 ??F) 05/21/2023 5:52 AM ED T Respiratory Rate 16 05/21/2023 12:06 PM EDT Oxygen Saturation 97% 05/21/2023 12:06 PM EDT Inhaled Oxygen Concentration - - Weight 91.4 kg (201 lb 8 oz) 05/21/2023 5:52 AM EDT Height 188 cm (6' 2.02) 05/20/2023 11:32 PM EDT Body Mass Index 25.86 05/20/2023 11:32 PM EDT documented in this encounter Discharge Summaries * Caroline Singh DO - 05/21/2023 12:54 PM EDT Images from the original note were not included. Discharge Summary Patient Name: Mirna Flores Patient Age: 77 y.o. Language: Croatian Admit date: 05/20/2023 Discharge date and time: 231:31 PM Attending Physician: Fidel Barnett MD Discharge Physician: Fidel Barnett MD Follow-up Recommendations for Providers: - We increased his Atorvastatin to 80mg daily. - We added on Aspirin 81mg daily. - We discontinued metoprolol as patient stated he no longer is taking it. Please resume if indicated. - No other changes were made to his medications. - He will have a follow up in our stroke clinic. Inpatient Provider Contact Information: For questions regarding this document or issues related to this hospitalization on the Neurology Service, please contact . Discharge Diagnoses: Active Hospital Problems Diagnosis Acute ischemic stroke Stroke Punctate R frontoparietal infarcts Past medical History: Past Medical History: Diagnosis Date A-fib Brain abscess CAD (coronary artery disease) HLD (hyperlipidemia) HTN (hypertension) Active Non Hospital Problems: Active Non-Hospital Problems Diagnosis Premature ventricular beats Status post ablation of atrial fibrillation ASCVD (arteriosclerotic cardiovascular disease) Atrial fibrillation Hypertension HLD (hyperlipidemia) Chest pain Brain abscess History of Presentation: Mirna Flores is a 77 y.o. male R handed male with a PMH of AFIB on Xarelto (s/p ablation), HLD, HTN, CAD (s/p PCI in 2006, BRENDA distal LAD x2 / distal Lcx x2, ramus x1 at [facility]), brain abscess (s/p surgery and ABX treatment in 2014) who presents with R hand numbness / weakness. Pt reports that he had eye surgery on Friday for cataract on his R eye and he subsequently developed hemorrhage. Around 5-6 PM that night he reports that his R arm felt weak and clumsy, which lasted for 10-15 minutes and then resolved. States that he couldn't move the hand very well but was able tomove the arm at the time. This recurred while he was eating supper that evening and he again had difficulty using utensils with his R hand. He had f/u the following morning and states that the purification operator had to drain blood from his eye, and had to do this again later that day. He states that later on Friday evening, the symptoms in the R arms occurred again. Then on Friday AM he continued to have intermittent symptoms and went to [facility] for further assessment. He states that he had an MRI performed there that showed 2 or 3 mini-strokes. He states that he was feeling back to normal last night, when around 8 PM the index finger of the Rhand went completely numb. He states that his R arm also again felt floppy. He states that he messaged the neurologist at [facility] who recommended that he present to [facility] [place] further evaluation. 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 States that he was referred to vascular surgery here at [facility], though he has not seen them yet. Pt states that he no longer has numbness in the R hand at this time, though he feels that his R hand is still weaker than the L hand. Notably, pt recently underwent cardioversion on 05/08 for AFIB w/ RVR. Pt reports that he was not started on digoxin following the cardioversion. He does note that his metoprolol was discontinued following his cardioversion. He also endorses that he has felt slightly unstable on his feet (states he feels uncoordinated in the legs rather than feeling weak in his legs). Denies vision changes (other than the vision changes associated with cataract in R eye), changes inspeech, difficulty swallowing. 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 MRI from [facility] readas few tiny foci of restricted diffusion in the high L frontal parietal region with tiny acute infarcts, and stable area of old infarction in the high R parietal region. Admission NIH Stroke Scale: NIH Stroke Scale Date 05/20/23 NIH Stroke Scale Time 1237 Level of Consciousness 0 LOC Questions 0 LOC Commands 0 Best Gaze 0 Vision 0 Facial Palsy 0 Motor Arm, Left 0 Motor Arm, Right 0 Motor Leg, Left 0 Motor Leg, Right 0 Limb Ataxia 0 Sensory 0 Best Language 0 Dysarthria 0 Extinction and Inattention: 0 NIH Total Score 0 Hospital Course: Mirna Flores is a 77 y.o. male [...] was thromboembolism. We discussed with his outpatient purification operator clinic who felt it was safe for the patientto be on Xarelto and aspirin so he was discharged on dual therapy. We also increased his Atorvastatin to 80mg daily. Patient was evaluated by rehabilitation services and deemed appropriate for Home. Operations & Procedures: None Consultations: 1. PT Diagnostic Tests & Neuroimaging: Study Results ECG Sinus rhythm with Premature atrial complexes Nonspecific T wave abnormality Prolonged QT Abnormal ECG When compared with ECG of 05-FEB-2023 10:43, Sinus rhythm has replaced Atrial fibrillation T wave inversion no longer evident in Inferior leads Nonspecific T wave abnormality has replaced inverted T waves in Anterolateral leads QT has lengthened Confirmed by MD Mckinney Danette ([id number]) on 05/20/2023 3:03:07 PM CXR No results found. CT Head No results found. MRA Head and Neck No results found. MRI BRAIN No results found. CTA Carotids/[place] No results found. TTE Interpretation Summary - Technically limited study. - [...] There is no prior study for comparison. Carotid Duplex RIGHT: There is smooth plaque in the [...] with normal antegrade Doppler waveforms and velocities. Labs: Lipid Panel Lab Results Component Value Date CHLPL 174 05/20/2023 HDL 47 05/20/2023 CHOLHDL 3.7 05/20/2023 LDLDIRECT 112 05/20/2023 Lab Results Component Value Date HA1C 5.4 05/20/2023 Last 3 wbc, hgb, hct plt Recent Labs 05/21/23 0038 05/20/23 1155 WBC 10.1* 10.6* HGB 14.1 15.2 HCT 41.2 45.0 PLATELET 223 248 Last 3 Lytes Recent Labs 05/21/23 0038 05/20/23 1155 08/28/22 0823 NA 139 140 141 K 4.0 4.4 4.4 CL 105 105 103 CO2 23 24 27 BUN 17 17 15 CREATININE 0.70* 0.80 1.00 Last Ca, Mg, Phos Recent Labs 05/21/23 0038 CALCIUM 9.5 9.5 PHOS 3.7 MAGNESIUM 0.88 Last 3 Coags No results for input(s): PT, INR, PTT in the last 168 hours. Last 3 Lipids Recent Labs 05/20/23 1155 CHLPL 174 HDL 47 LDLDIRECT 112 Last 3 HgbA1C Recent Labs 05/20/23 1155 HA1C 5.4 Pending Studies and Lab Data: No current labs PT Eval: Turning from your back to your side while in a flat bed w/o using handrails?: 4 - None Standing up from a chair using your arms (e.g. wheelchair, or bedside commode)?: 4 - None Moving from lying on your back to sitting on the side of a flat bed w/o using bedrails?: 4 - None Moving to and from a bed to a chair (including a wheelchair): 4 - None To walk in hospital room?: 4 - None Climbing 3-5 steps with a railing?*: 4 - None Anticipated Discharge Disposition (PT): home Vital Signs at Discharge: BP: 129/66, Heart Rate: 69, Temp: 36.5 ??C (97.7 ??F), Resp: 16, Height: 188 cm (6' 2.02) (05/20/23 2332) Weight: 91.4 kg (201 lb 8 oz) (05/21/23 0552) Physical Exam at Discharge: Neuro Exam: MS: Awake, alert, clear language, no dysarthria, follows commands appropriately CN: R pupil smaller than the L but both reactive, EOMI Facial sensation intact, no facial asymmetry Hearing intact to voice Palate elevates symmetrically, tongue protrudes midline SCM and trap strength intact Motor: Normal bulk and tone. Very subtle R pronator drift. UE: 5/5 R, 5/5 L Arm abduction at shoulder 5/5 R, 5/5 L Elbow extension 5/5 R, 5/5 L Elbow flexion 5/5 R, 5/5 L Sap Architect LE: 5/5 R, 5/5 L Hip flexion 5/5 R, 5/5 L Knee extension 5/5 R, 5/5 L Knee flexion 5/5 R, 5/5 L Foot dorsiflexion 5/5 R, 5/5 L Foot plantar flexion Sensation: Intact to light touch throughout, no evidence of sensory extinction Reflexes: Deferred Toes - mute BL Coordination: Finger to nose intact, no dysmetria Rapid alternating movements & finger tapping smooth and symmetric Heel-kay intact No tremor Gait: deferred Discharge NIH Stroke Scale NIH Stroke Scale Date 05/21/23 NIH Stroke Scale Time 0700 Level of Consciousness 0 LOC Questions 0 LOC Commands 0 Best Gaze 0 Vision 0 Facial Palsy 0 Motor Arm, Left 0 Motor Arm, Right 0 Motor Leg, Left 0 Motor Leg, Right 0 Limb Ataxia 0 Sensory 0 Best Language 0 Dysarthria 0 Extinction and Inattention: 0 NIH Total Score 0 Discharge to: Home Updated Allergies/ADRs: Allergies Allergen Reactions Bee Pollen Anaphylaxis Bee Stings Use to carry Epi Pen, Penicillins Angioedema States as a child, had facial, lip swelling. Shellfish Containing Products Nausea And Vomiting SHRIMP only. Blotches, swelling, Shrimp Aspirin Other (See Comments) Nosebleeds after 2 weeks of therapy Ceftriaxone Other (See Comments) leukopenia Keppra [Levetiracetam] Other (See Comments) leukopenia Simvastatin Other (See Comments) Myalgia Immunizations Given this Hospitalization: There is no immunization history on file for this patient. Discharge Medications: Your Medications New Medications Dose Details aspirin 81 mg chewable tablet Take 81 mg by mouth daily. Start taking on: May 22, 2023 81 mg Quantity: 30 tablet Refills: 3 Continued medications with new dosing Dose Details atorvastatin 80 mg tablet Commonly known as: Lipitor Take 1 tablet by mouth every evening. What changed: medication strength how much to take when to take this 80 mg Quantity: 90 tablet Refills: 3 Continued medications, unchanged Dose Details brimonidine 0.1 % Drops Commonly known as: Alphagan P Place 1 drop into the right eye as needed. 10 minutes after timolol for vision problems following cataract surgery 1 drop Refills: 0 lisinopriL 20 mg tablet Commonly known as: Zestril Take 20 mg by mouth daily. 20 mg Refills: 0 nitroGLYcerin 0.4 mg sublingual tablet Commonly known as: Nitrostat Place 1 tablet under the tongue every 5 minutes as needed for Chest pain. 0.4 mg Quantity: 90 tablet Refills: 12 vefscimtmipd-trkambs-vrekkhzgn 1-0.5-0.1 % Drops, Suspension Apply 1 drop to eye as needed. Take 1 drop in the R eye for vision problems following surgery, followed by timolol 10 minutes later 1 drop in each eye 1 drop Refills: 0 rivaroxaban 20 mg tablet Commonly known as: Xarelto Take 1 tablet by mouth daily. 20 mg Quantity: 90 tablet Refills: 3 timoloL 0.5 % Drops Commonly known as: Timoptic 2 times daily. Refills: 0 STOPPED Medications metoprolol succinate XL 50 mg ER 24 hr tablet Commonly known as: Toprol-XL SECONDARY STROKE PREVENTION: Preventative measure Antithrombotic Therapy Administered within 2 days of admission?: Yes Anticoagulation Therapy Prescribed at Discharge?: Yes Was statin medication prescribed at discharge?: Yes Was Guideline Recommended Statin Dose Prescribed at Discharge?: Yes Has patient had a cigarette within the last 365 days?: No Education: Patient/caregiver received written stroke discharge instructions/information?Yes The patient/caregiver accepted education on stroke warning signs and symptoms, personal modifiable stroke risk factors, activation of emergency medical systems for stroke, medications prescribed at discharge for stroke, and education on stroke follow-up. Modified [place] Score (MRS) on discharge Score Description 0 No symptoms at all 1 No significant disability despite symptoms; able to carry out all usual duties and activities 2 Slight disability; unable to carry out all previous activities, but able to look after own affairs without assistance 3 Moderate disability; requiring some help, but able to walk without assistance 4 Moderately severe disability; unable to walk without assistance 5 Severe disability; bedridden, incontinent and requiring constant nursing care and attention 6 Total Score: 0 Instructions Given to Patient at Discharge: Patient Instructions Patient Instructions: You were admitted to the neurology service at [facility] Your Diagnosis: Stroke - Work close with your primary care provider (PCP) with monitoring your blood pressure, blood sugarand cholesterol. - Lifestyle modifications should include: taking all medications as prescribed, smoking cessation or staying away from others who are smoking to avoid second hand smoke, limiting alcohol intake, maintaining a normal/healthy weight, adhering to a healthy diet (low-fat, low-sodium, high intake of fresh fruits and vegetables, limiting red meat), and engaging in regular physical activity. - Take your eye drops on your right eye daily as prescribed until the bottle runs out. - We increased your Atorvastatin to 80mg - We added on a new medication called Aspirin. Take 81mg of this daily. - Continue with your Xarelto - We will schedule a follow up appointment in our stroke clinic. - No other changes were made to your medications. Call 911 or your local EMS if you have sudden weakness or numbness in your face or one of your limbs, slurred speech, loss of vision, or difficulty speaking. It is important to seek medical attentionas soon as possible, as these symptoms could be related to a new stroke. Diet: we recommend a heart healthy diet: low fat, low cholesterol, low concentrated sweets. Activity Restrictions: As tolerated. Driving Restrictions: No driving until cleared by a provider. Diabetes Follow-up and Instructions: 1. Continue to monitor your blood glucose (BG), also called blood sugar, with the goal of before-meal BG of 100 - 120 and after-meal BG of lower than 180. If you often have BG's lower than 80 or higher than 250, call your Health Care Provider. Your HbA1c target is less than 7.0%. 2. Know your cholesterol levels and the goal you are striving for. Your goal LDL is <100. 3. Continue to try eating healthy, which includes a low fat, low cholesterol, high fiber, no added sweets diet. 4. Exercising regularly is important. The goal for most people is 30 minutes of exercise, 3-4 timesper week. 30 minutes of exercise 5 days per week, never going more than 2 days in a row without exercise. Check with your Health care Provider for specific guidelines. 5. Monitor blood pressure weekly: Goal for most patients is 130/80 mm?Hg. Check with your Health Care Provider for specific guidelines. Continue to take all medications daily. 6. Remember to have an annual ophthalmic (eye) examination 7. Remember to have a quarterly foot examination done by your Health care provider. 8. Ask your Health care Provider about annual screening for urine micro-albumin. 9. Please plan quarterly follow-up visits for diabetes management with your Health care Provider. 10. Consider Diabetes Education in your community. The more you know about your diabetes, the better the decisions you will make every day. Know Your Numbers! Blood Pressure BP Readings from Last 3 Encounters: 05/21/23 143/79 02/05/23 113/68 09/11/22 140/71 HA1C Lab Results Component Value Date HA1C 5.4 05/20/2023 Cholesterol Lab Results Component Value Date CHLPL 174 05/20/2023 HDL 47 05/20/2023 CHOLHDL 3.7 05/20/2023 LDLDIRECT 112 05/20/2023 Below is an explanation of each of the cholesterol test results. Total cholesterol: This test is best when below 200. It can be improved primarily by a low fat diet. HDL (good cholesterol): The higher the better. It is best when above 50. It is primarily genetically determined but can be increased with exercise. LDL (bad cholesterol): this test is best when below 130 (or below 100 if you have heart disease or below 70 if you have had a stroke or TIA). It can be lowered by a low fat diet. Triglycerides: This test is best when below 180. It can be lowered by a low fat diet, avoidance of sweets and weight loss. Follow-up: Neurology: You will have a follow-up appointment in the neurology clinic at [facility]. See below for the appointment time. If you do not have an appointment, you will be called with a time/date for this appointment. NOTE: In an effort to reduce possible exposure to COVID-19, some clinic appointments are being conducted via telehealth with video. We will do our best to accommodate the best visit type, either in-person or via telehealth depending on each unique patient situation. Of note, if you consent to a telehealth encounter in lieu of face to face visit, you understand the visit may be billed similar to a regular arcf-kv-dyzs clinic visit. Primary Care Provider: Please follow up with your Primary Care Provider within one to 2 weeks of discharge. For questions regarding this document or issues relating to this hospitalization on the Neurology Service, please contact the author(s) of this discharge summary through the [facility] [employer] . If you need to cancel or reschedule, please call Dept: [phone] as soon as possible. This is helpful to us and other waiting patients. IF FOLLOW UP VISIT WITH STROKE TEAM IS NEEDED IN FORM OF TELEHEALTH: Please ensure you have an active [employer] account and are familiar with it. Also, please ensure an active email address. To sign up for a [employer] account, Visit the [email or web address] website and 1) choose ???create an account?? 2) enter your date of 3) You will be asked if you have an activation code. If you have an activation code, click the ???yes?? button. If you do not have a code, click the ???no?? button. 4) If you do not have an activation code, you will now be asked to enter your information. 5) You will receive an email once your account has been created. If you need technical assistance call [phone] Friday through Friday, 7:30 am to 5:00 pm If you plan to join your [facility] Video Visit using your personal smartphone or tablet, prior to joining your visit you will need to download the Zoom adam from the Adam Store (for iPhone/iPad) or PayRange (for Android). Ifyou already have Zoom downloaded on your device for personal use, you???re good to go! 1. Open the Adam Store or Google Auxogyn Store on your device. 2. Search for Zoom and download the [employer]Tigerlily [place] Meetings adam. ? Adam Store Link: https://apps.[employer]/us/adam/mybs-twfyv-nubldbes/hk476204421 ? Google Auxogyn Link: https://MdotLabs/store/apps/details?id=us.zoom.videomeetings If you plan to join your [facility] Video Visit using your computer or laptop, prior to joining your video visit you will need to download Zoom. If you already have Zoom downloaded on your machine for personal use, you???re good to go! 1. Open your web browser (Internet Explorer, Chrome, etc.). 2. Type zoom.us and press enter on your keyboard (or click this link: https://zoom.us/). 3. In the top right corner of the webpage, hover over Resources and click Download Zoom Client. 4. Within the Zoom Download Center, find Zoom Client for Meetings and click the associated Downloadbutton. 5. Follow the downloading prompts. 6. Once complete, your computer will have the software necessary to connect to your visit. Note: Subsequent video visits will not require a re-download of Zoom. For phone/tablet: Starting 30 minutes before your appointment, you will find the link to connect to your visit withinyour [facility] portal. 1. Sign into your myD-H account. 2. Select Appointments. 3. Select your [facility] Video Visit and tap Begin Visit. 4. The Zoom adam will launch. The ???Waiting for host to start this meeting?? screen will appear and stay until your provider enters the video visit. 5. Once the provider joins the visit you will see your video preview appear. Select Join with Video. 6. You will then be presented with an audio screen. Select Call using Internet Audio. For computer: Starting 30 minutes prior to your scheduled [facility] Video Visit, you will find the link to connect tothe visit within your [facility] portal. 1. Sign into your [facility]Sicubo account ([facility] ER[facility]azoom portal link: [email or web address]). 2. On the top of the webpage, hover over Visits and select Appointments and Visits. 3. Click the Details button next to your [facility] video visit. 4. Click the Begin Video Visit button. 5. Your computer will open your default web browser. Click Open Zoom Meetings on the pop-up window that appears. 6. The below window will appear and stay until your provider enters the video visit. 7. Once the provider has entered the video visit, you will be prompted with a video preview. Click Join with Video. 8. Connect the audio portion of the visit by clicking the Phone Call button. 9. Dial one of the phone numbers listed and follow the prompts to enter your Meeting ID and Participant ID. Note: the option exists to use your computer for audio, if you choose this option please ensure youare able to confirm your microphone settings are on. General Instructions None Future Appointments and Orders Future Appointments and Orders Future Appointments Provider Department Dept Phone 05/27/2023 11:00 AM Milagros Parra APRN Neurology at [facility] Arrive at: [facility] [phone] 08/13/2023 2:00 PM Gonzales Torres MD Cardiology at [place] Arrive at: [facility] [address] [phone] Primary Care Provider: Mirna Barrera DO [address] [facility] [address] Discharge References/Attachments None documented in this encounter Discharge Instructions * Patient Instructions* Caroline Singh DO - 05/21/2023 9:12 AM EDT Images from the original note were not included. Patient Instructions: You were admitted to the neurology service at [facility] Your Diagnosis: Stroke - Work close with your primary care provider (PCP) with monitoring your blood pressure, blood sugarand cholesterol. - Lifestyle modifications should include: taking all medications as prescribed, smoking cessation or staying away from others who are smoking to avoid second hand smoke, limiting alcohol intake, maintaining a normal/healthy weight, adhering to a healthy diet (low-fat, low-sodium, high intake of fresh fruits and vegetables, limiting red meat), and engaging in regular physical activity. - Take your eye drops on your right eye daily as prescribed until the bottle runs out. - We increased your Atorvastatin to 80mg - We added on a new medication called Aspirin. Take 81mg of this daily. - Continue with your Xarelto - We will schedule a follow up appointment in our stroke clinic. - No other changes were made to your medications. Call 911 or your local EMS if you have sudden weakness or numbness in your face or one of your limbs, slurred speech, loss of vision, or difficulty speaking. It is important to seek medical attentionas soon as possible, as these symptoms could be related to a new stroke. Diet: we recommend a heart healthy diet: low fat, low cholesterol, low concentrated sweets. Activity Restrictions: As tolerated. Driving Restrictions: No driving until cleared by a provider. Diabetes Follow-up and Instructions: 1. Continue to monitor your blood glucose (BG), also called blood sugar, with the goal of before-meal BG of 100 - 120 and after-meal BG of lower than 180. If you often have BG's lower than 80 or higher than 250, call your Health Care Provider. Your HbA1c target is less than 7.0%. 2. Know your cholesterol levels and the goal you are striving for. Your goal LDL is <100. 3. Continue to try eating healthy, which includes a low fat, low cholesterol, high fiber, no added sweets diet. 4. Exercising regularly is important. The goal for most people is 30 minutes of exercise, 3-4 timesper week. 30 minutes of exercise 5 days per week, never going more than 2 days in a row without exercise. Check with your Health care Provider for specific guidelines. 5. Monitor blood pressure weekly: Goal for most patients is 130/80 mm?Hg. Check with your Health Care Provider for specific guidelines. Continue to take all medications daily. 6. Remember to have an annual ophthalmic (eye) examination 7. Remember to have a quarterly foot examination done by your Health care provider. 8. Ask your Health care Provider about annual screening for urine micro-albumin. 9. Please plan quarterly follow-up visits for diabetes management with your Health care Provider. 10. Consider Diabetes Education in your community. The more you know about your diabetes, the better the decisions you will make every day. Know Your Numbers! Blood Pressure BP Readings from Last 3 Encounters: 05/21/23 143/79 02/05/23 113/68 09/11/22 140/71 HA1C Lab Results Component Value Date HA1C 5.4 05/20/2023 Cholesterol Lab Results Component Value Date CHLPL 174 05/20/2023 HDL 47 05/20/2023 CHOLHDL 3.7 05/20/2023 LDLDIRECT 112 05/20/2023 Below is an explanation of each of the cholesterol test results. Total cholesterol: This test is best when below 200. It can be improved primarily by a low fat diet. HDL (good cholesterol): The higher the better. It is best when above 50. It is primarily genetically determined but can be increased with exercise. LDL (bad cholesterol): this test is best when below 130 (or below 100 if you have heart disease or below 70 if you have had a stroke or TIA). It can be lowered by a low fat diet. Triglycerides: This test is best when below 180. It can be lowered by a low fat diet, avoidance of sweets and weight loss. Follow-up: Neurology: You will have a follow-up appointment in the neurology clinic at [facility]. See below for the appointment time. If you do not have an appointment, you will be called with a time/date for this appointment. NOTE: In an effort to reduce possible exposure to COVID-19, some clinic appointments are being conducted via telehealth with video. We will do our best to accommodate the best visit type, either in-person or via telehealth depending on each unique patient situation. Of note, if you consent to a telehealth encounter in lieu of face to face visit, you understand the visit may be billed similar to a regular [id number]-[id number] clinic visit. Primary Care Provider: Please follow up with your Primary Care Provider within one to 2 weeks of discharge. For questions regarding this document or issues relating to this hospitalization on the Neurology Service, please contact the author(s) of this discharge summary through the [facility] . If you need to cancel or reschedule, please call Dept: [phone] as soon as possible. This is helpful to us and other waiting patients. IF FOLLOW UP VISIT WITH STROKE TEAM IS NEEDED IN FORM OF TELEHEALTH: Please ensure you have an active [employer] account and are familiar with it. Also, please ensure an active email address. To sign up for a [employer] account, Visit the [email or web address] website and 1) choose ???create an account?? 2) enter your date of 3) You will be asked if you have an activation code. If you have an activation code, click the ???yes?? button. If you do not have a code, click the ???no?? button. 4) If you do not have an activation code, you will now be asked to enter your information. 5) You will receive an email once your account has been created. If you need technical assistance call [phone] Friday through Friday, 7:30 am to 5:00 pm If you plan to join your [facility] Video Visit using your personal smartphone or tablet, prior to joining your visit you will need to download the Zoom adam from the Adam Store (for iPhone/iPad) or PayRange (for Android). Ifyou already have Zoom downloaded on your device for personal use, you???re good to go! 1. Open the Adam Store or PayRange Store on your device. 2. Search for Zoom and download the [employer]iger[employer]ily [place] Meetings adam. ? Adam Store Link: [email or web address] ? Google Auxogyn Link: https://MdotLabs/store/apps/details?id=us.zoom.videomeetings If you plan to join your [facility] Video Visit using your computer or laptop, prior to joining your video visit you will need to download Zoom. If you already have Zoom downloaded on your machine for personal use, you???re good to go! 1. Open your web browser (Internet Explorer, Chrome, etc.). 2. Type zoom.us and press enter on your keyboard (or click this link: https://zoTigerlily.us/). 3. In the top right corner of the webpage, hover over Resources and click Download Zoom Client. 4. Within the Zoom Download Center, find Zoom Client for Meetings and click the associated Downloadbutton. 5. Follow the downloading prompts. 6. Once complete, your computer will have the software necessary to connect to your visit. Note: Subsequent video visits will not require a re-download of Zoom. For phone/tablet: Starting 30 minutes before your appointment, you will find the link to connect to your visit withinyour [facility] portal. 1. Sign into your myD-H account. 2. Select Appointments. 3. Select your [facility] Video Visit and tap Begin Visit. 4. The Zoom adam will launch. The ???Waiting for host to start this meeting?? screen will appear and stay until your provider enters the video visit. 5. Once the provider joins the visit you will see your video preview appear. Select Join with Video. 6. You will then be presented with an audio screen. Select Call using Internet Audio. For computer: Starting 30 minutes prior to your scheduled myD-H Video Visit, you will find the link to connect tothe visit within your [facility] portal. 1. Sign into your myD-H account (myD-H portal link: [email or web address]). 2. On the top of the webpage, hover over Visits and select Appointments and Visits. 3. Click the Details button next to your [facility] video visit. 4. Click the Begin Video Visit button. 5. Your computer will open your default web browser. Click Open Zoom Meetings on the pop-up window that appears. 6. The below window will appear and stay until your provider enters the video visit. 7. Once the provider has entered the video visit, you will be prompted with a video preview. Click Join with Video. 8. Connect the audio portion of the visit by clicking the Phone Call button. 9. Dial one of the phone numbers listed and follow the prompts to enter your Meeting ID and Participant ID. Note: the option exists to use your computer for audio, if you choose this option please ensure youare able to confirm your microphone settings are on. documented in this encounter Medications at Time of Discharge Medication Sig Dispensed Refills Start Date End Date OneTouch Verio test strips Strip USE TO CHECK BLOOD GLUCOSE DAILY DIRECTED 03/19/2023 atorvastatin (Lipitor) 80 mg tablet Take 1 tablet by mouth every evening. 90 tablet 3 05/21/2023 timoloL (Timoptic) 0.5 % Drops Place 1 drop into the left eye 2 times daily. 06/19/2022 benzonatate (Tessalon) 200 mg capsule Take 200 mg by mouth 3 times daily as needed for Cough. 03/31/2023 06/20/2023 aspirin 81 mg chewable tablet Take 81 mg by mouth daily. 30 tablet 3 05/22/2023 02/11/2024 otbjmdmjadrw-gpwnikq-ed pafenac 1-0.5-0.1 % Drops, Suspension Apply 1 drop to eye as needed. Take 1 drop in the R eye for vision problems following surgery, followed by timolol 10 minutes later 1 drop in each eye 06/20/2023 brimonidine (Alphagan P) 0.1 % Drops Place 1 drop into the right eye as needed. 10 minutes after timolol for vision problems following cataract surgery 06/20/2023 rivaroxaban (Xarelto) 20 mg tabletIndications:Parox ysmal atrial [...] as of this encounter Progress Notes * Nayla Collins, RN - 05/21/2023 2:08 PM EDT Discharged w/ all personal belongings. Verbalized understanding of dc instructions. All questions answered. PIV and EKG leads removed. * Cassie Hanson OT - 05/21/2023 1:18 PM EDT 05/21/23 1317 Evaluation & Treatment Document Type contact Total Minutes, Occupational Therapy 0 Comment, Session Not Performed OT order received and chart reviewed. Per PT; Pt has no inpatient OTneeds. Plan to monitor and see for OT evaluation if further indicated or requested. * Breana Stewart PT - 05/21/2023 9:48 AM EDT Physical Therapy Evaluation Patient profile: Mirna Flores is a 77 y.o. male R handed male with a PMH of AFIB on Xarelto (s/p ablation), HLD, HTN, CAD (s/p PCI in 2006, BRENDA distal LAD x2 / distal Lcx x2, ramus x1 at [facility]), brain abscess (s/p surgery and ABX treatment in 2014) who presents with R hand numbness / weakness. Patient with the following active problems: Past Medical History: Diagnosis Date A-fib Brain abscess CAD (coronary artery disease) HLD (hyperlipidemia) HTN (hypertension) Active Non-Hospital Problems Diagnosis Premature ventricular beats Status post ablation of atrial fibrillation ASCVD (arteriosclerotic cardiovascular disease) Atrial fibrillation Hypertension HLD (hyperlipidemia) Chest pain Brain abscess Past Surgical History: Procedure Laterality Date PRO CARDIOVERSION ELECTIVE ARRHYTHMIA EXTERNAL N/A 08/28/2022 CARDIOVERSION-ELECTIVE (WRVU 2.25) performed by Fred Maki MD at [facility] MA[facility] OR PRO STEREO BX/ASPIR/EXCIS, INTRACRANIAL LESN Right 01/27/2015 @STEREOTACTIC BX,ASP, OR EXC.-INTRACRANIAL LESION, W/SCAN performed by Jose Small MD at [facility] MA[facility] OR PRO STEREOTACTIC CPTR ASSTD PX CRANIAL, INTRADURAL Right 01/27/2015 STEREOTACTIC COMPUTER-ASSTD NAVIGATIONAL CRANIAL INTRADURAL performed by Jose Small MD at [facility] MA[facility] OR Social History: Home set-up: Pt lives with his , daughter, granddaughter and great grandchildren (total of 9 people in the home) in a multi-level home. Bathroom Set-up: tub shower, has a shower chair but doesn't typically use Stairs: 2STE with rail Baseline Mobility: Pt is typically independent with all mobility, ADLs, and IADLs. He's retired. [employer]rives. Equipment at home: shower chair Fall history: none Precautions/Special Considerations: at risk to fall, SBP <220 Lines: telemetry Activity Orders: up with assistance Diet: regular Mobility and Positioning Recommendations: Pt cleared to mobilize independently. Please encourage up to chair for meal times as able. Pt encouraged to ambulate frequently, getting into the bathroom for toileting and walking out in the eason >/= 3 times daily as able. 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 Pain: Denies pain Vital Signs: VSS throughout on RA, HR 80-90s bpm with activity Mental Status: alert, oriented to person, place, and time Vision: corrective lenses donned, recently had cataract surgery on R eye, still requires lenses forreading Skin: visible skin intact Musculoskeletal: ROM: WFL Strength: 5/5 BLEs Sensation: intact to LT Coordination: Heel to kay: normal bilaterally FREDO hands: normal bilaterally Bed Mobility: Supine to Sit: indep Sit to Supine: indep Transfers: Sit to Stand: indep Stand to Sit: indep Gait: Distance: 300' Device used: none Level of assist: indep Gait mechanics: demo's fluid gait with reciprocal pattern, no overt deficits noted, no LOB Stairs: negotiated 8 step up x2 with R rail, SBA Balance: Sitting Static: good Sitting Dynamic: good Standing Static: good Standing Dynamic / Gait: good Education: patient has been educated on Bed mobility, Transfers, Stairs, Positioning, Safety , Precautions/protocol, Gait , Activity pacing/Energy conservation, Role of therapy, Balance, and Discharge planning and verbalizes and demonstrates understanding. Patient status, treatment, and mobility recommendations discussed with nursing. Assessment: Mirna Flores was seen today for physical therapy evaluation. Pt presented with R handnumbness/weakness, undergoing workup. He had no acute complaints this day, and reported improvementin R hand function. He participated in bed mobility, transfers, gait, and stair negotiation all independently. At this time, pt presents at his baseline, and is cleared for d/c home. No further skilled inpatient PT needs identified. Discharge Recommendations: Based on the current findings, Anticipated Discharge Disposition (PT): home when medically ready for hospital discharge. Discharge recommendation is based on the patient's current physical impairments, prior functional status, potential to return to prior level of function, patient motivation, reported home support, potential for functional gains, current level of endurance, reported home environment and anticipated trajectory of progress and may change based on patient progress during this hospitalization. Consult Recommendations: No other consults recommended at this time. Equipment needs: Anticipated Equipment Needs at Discharge (PT): None Plan: Therapy Frequency (PT): evaluation only. Patient/family understand and agree with plan as stated above. 2017 PT Evaluation Code Rationale: Diagnosis & Pertinent Co-Morbidities, personal factors, and present illness affecting Plan of Care: (see above); Additional personal factors or co- morbidities that impact plan: Total # of Factors: 0 1-2 3+ X Examination of body system impairments, functional limitations and behaviors, and/or participation restrictions. Addressing 1-2 elements Addressing 3 + elements X Addressing 4 + elements Clinical presentation: See assessment above. Stable/Uncomplicated Evolving/Fluctuating Symptoms Unstable/Unpredictable X Clinical decision making of low complexity based on pt's functional performance as outlined in thisevaluation. Time IN / OUT: 5773-0790 Total Minutes, Physical Therapy: 11 Billing Code: low complexity eval Braena Stewart, PT Pager: [phone] Physical Therapy Inpatient Rehabilitation Department * Francisco Carolinedimitry Youngblood, - 05/21/2023 6:32 AM EDT Neurology Admission History and Physical Patient name: Mirna Flores Date of : 1945 PCP: Mirna Barrera DO Stroke Assessment: Date last well known:: 05/16/23 Time last well known:: 1700 Date of discovery of symptoms:: 05/16/23 Time of discovery of symptoms:: 1700 The time difference from patients last known well to ED arrival OR inpatient stroke alert was (choose one): Greater than 4.5 hours Date acute stroke team was at bedside:: 05/20/23 Time acute stroke team was at bedside:: 1200 CT interpretation date: 05/18/23 CT interpretation time:: 1345 Was dysphagia screen performed?: Yes Did patient pass dysphagia screen?: Yes Date of Dysphagia Screen: 05/20/23 Time of Dysphagia Screen: 1236 CC: R hand weakness HPI: Mirna Flores is a 77 y.o. male R handed male with a PMH of AFIB on Xarelto (s/p ablation), HLD, HTN, CAD (s/p PCI in 2006, BRENDA distal LAD x2 / distal Lcx x2, ramus x1 at [facility]), brain abscess (s/p surgery and ABX treatment in 2014) who presents with R hand numbness / weakness. Pt reports that he had eye surgery on Friday for cataract on his R eye and he subsequently developed hemorrhage. Around 5-6 PM that night he reports that his R arm felt weak and clumsy, which lasted for 10-15 minutes and then resolved. States that he couldn't move the hand very well but was able tomove the arm at the time. This recurred while he was eating supper that evening and he again had difficulty using utensils with his R hand. He had f/u the following morning and states that the purification operator had to drain blood from his eye, and had to do this again later that day. He states that later on Friday evening, the symptoms in the R arms occurred again. Then on Friday AM he continued to have intermittent symptoms and went to [facility] for further assessment. He states that he had an MRI performed there that showed 2 or 3 mini-strokes. He states that he was feeling back to normal last night, when around 8 PM the index finger of the Rhand went completely numb. He states that his R arm also again felt floppy. He states that he messaged the neurologist at [facility] who recommended that he present to [facility] [place]. 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 States that he was referred to vascular surgery here at [facility], though he has not seen them yet. Pt states that he no longer has numbness in the R hand at this time, though he feels that his R hand is still weaker than the L hand. Notably, pt recently underwent cardioversion on 05/08 for AFIB w/ RVR. Pt reports that he was not started on digoxin following the cardioversion. He does note that his metoprolol was discontinued following his cardioversion. He also endorses that he has felt slightly unstable on his feet (states he feels uncoordinated in the legs rather than feeling weak in his legs). Denies vision changes (other than the vision changes associated with cataract in R eye), changes inspeech, difficulty swallowing. 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 MRI from [facility] readas few tiny foci of restricted diffusion in the high L frontal parietal region with tiny acute infarcts, and stable area of old infarction in the high R parietal region. Interval Events: - CTA carotids, CUS pending - TTE scheduled - He tells me his strength and numbness has completely resolved. He wonders if the strokes are related to the bleeding in his eye. Home Medications: No current facility-administered medications on file prior to encounter. Current Outpatient Medications on File Prior to Encounter Medication Sig Dispense Refill rivaroxaban (Xarelto) 20 mg tablet Take 1 tablet by mouth daily. 90 tablet 3 lisinopriL (Zestril) 20 mg Tablet Take 20 mg by mouth daily. timoloL (Timoptic) 0.5 % Drops 2 times daily. atorvastatin (LIPITOR) 10 mg Tablet Take 10 mg by mouth daily. hcphpxplfmmg-osytyzn-uyektulqp 1-0.5-0.1 % Drops, Suspension Apply 1 drop to eye as needed. Take 1 drop in the R eye for vision problems following surgery, followed by timolol 10 minutes later 1 dropin each eye brimonidine (Alphagan P) 0.1 % Drops Place 1 drop into the right eye as needed. 10 minutes after timolol for vision problems following cataract surgery nitroGLYcerin (NITROSTAT) 0.4 mg Tablet, Sublingual Place 1 tablet under the tongue every 5 minutesas needed for Chest pain. 90 tablet 12 Current Medications: Scheduled Meds: Past Medical & Surgical History: Past Medical History: Diagnosis Date A-fib Brain abscess CAD (coronary artery disease) HLD (hyperlipidemia) HTN (hypertension) Past Surgical History: Procedure Laterality Date PRO CARDIOVERSION ELECTIVE ARRHYTHMIA EXTERNAL N/A 08/28/2022 CARDIOVERSION-ELECTIVE (WRVU 2.25) performed by Fred Maki MD at [facility] MA[facility] OR PRO STEREO BX/ASPIR/EXCIS, INTRACRANIAL LESN Right 01/27/2015 @STEREOTACTIC BX,ASP, OR EXC.-INTRACRANIAL LESION, W/SCAN performed by Jose Small MD at [facility] OR PRO STEREOTACTIC CPTR ASSTD PX CRANIAL, INTRADURAL Right 01/27/2015 STEREOTACTIC COMPUTER-ASSTD NAVIGATIONAL CRANIAL INTRADURAL performed by Jose Small MD at [facility] OR Allergy: Allergies Allergen Reactions Bee Pollen Anaphylaxis Bee Stings Use to carry Epi Pen, Penicillins Angioedema States as a child, had facial, lip swelling. Shellfish Containing Products Nausea And Vomiting SHRIMP only. 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 Social Determinants of Health Financial Resource Strain: Not on file Food Insecurity: Not on file Transportation Needs: Not on file Physical Activity: Not on file Housing Stability: Not on file Review of systems: See interval events Physical Exam: Vitals: Temp: [35.3 ??C (95.6 ??F)-37 ??C (98.6 ??F)] Heart Rate: [57-76] Resp: [11-20] BP: (123-156)/(62-97) SpO2: [95 %-100 %] Heart Rate from SpO2: [60 bpm-67 bpm] Gen: Patient of apparent stated age, well nourished, well developed, awake, alert, NAD Neck: Supple, no meningismus CV: RRR per masimo Resp: respirations appear unlabored on RA Abd: soft, nontender, nondistended Ext: No edema. No bony deformity Neuro Exam: MS: Awake, alert, clear language, no dysarthria, follows commands appropriately CN: R pupil smaller than the L but both reactive, EOMI Facial sensation intact, no facial asymmetry Hearing intact to voice Palate elevates symmetrically, tongue protrudes midline SCM and trap strength intact Motor: Normal bulk and tone. Very subtle R pronator drift. UE: 5/5 R, 5/5 L Arm abduction at shoulder 5/5 R, 5/5 L Elbow extension 5/5 R, 5/5 L Elbow flexion 5-/5 R, 5/5 L Sap Architect LE: 5/5 R, 5/5 L Hip flexion 5/5 R, 5/5 L Knee extension 5/5 R, 5/5 L Knee flexion 5/5 R, 5/5 L Foot dorsiflexion 5/5 R, 5/5 L Foot plantar flexion Sensation: Intact to light touch throughout, no evidence of sensory extinction Reflexes: Deferred Toes - mute BL Coordination: Finger to nose intact, no dysmetria Rapid alternating movements & finger tapping smooth and symmetric Heel-kay intact No tremor Gait: deferred NIH Stroke Scale NIH Stroke Scale Date 05/20/23 NIH Stroke Scale Time 1237 Level of Consciousness 0 LOC Questions 0 LOC Commands 0 Best Gaze 0 Vision 0 Facial Palsy 0 Motor Arm, Left 0 Motor Arm, Right 0 Motor Leg, Left 0 Motor Leg, Right 0 Limb Ataxia 0 Sensory 0 Best Language 0 Dysarthria 0 Extinction and Inattention: 0 NIH Total Score 0 Labs: Recent Results (from the past 24 hour(s)) Basic Metabolic Panel (non-fasting) Result Value Ref Range Glucose Lvl 121 65 - 199 mg/dL BUN 17 10 - 20 mg/dL Creatinine 0.80 0.80 - 1.50 mg/dL Sodium 140 135 - 145 mmol/L Potassium 4.4 3.5 - 5.0 mmol/L Chloride 105 98 - 107 mmol/L CO2 24 22 - 31 mmol/L Anion Gap 11 5 - 15 mmol/L Calcium 10.2 8.5 - 10.5 mg/dL Estimated GFR 91 >=60 mL/min/1.73 m?? Hemogram Result Value Ref Range WBC 10.6 (H) 4.0 - 9.5 x10(3)/mcL RBC 4.73 4.58 - 5.54 x10(6)/mcL Hemoglobin 15.2 13.7 - 16.5 g/dL Hematocrit 45.0 40.5 - 48.5 % MCV 95.1 (H) 82.9 - 93.1 fL MCH 32.1 27.5 - 32.1 pg MCHC 33.8 32.0 - 35.7 g/dL Platelets 248 145 - 357 x10(3)/mcL RDWSD 48.2 (H) 36.0 - 45.0 fL RDWCV 13.8 11.4 - 13.8 % MPV 10.9 7.6 - 12.9 fL nRBC % Auto 0.0 % nRBC Abs Auto 0.000 0.000 - 0.000 x10(3)/mcL Differential, Automated Result Value Ref Range Neutrophils % 57.5 % Neutr Abs (ANC) 6.11 (H) 1.70 - 6.10 x10(3)/mcL Lymphocytes % 12.1 % Lymphocytes Abs 1.3 0.9 - 3.2 x10(3)/mcL Monocytes % 5.7 % Monocyte Abs 0.6 0.3 - 0.9 x10(3)/mcL Eosinophils % 23.8 % Eosinophils Abs 2.5 (H) 0.0 - 0.4 x10(3)/mcL Basophils % 0.7 % Basophils Abs 0.1 0.0 - 0.1 x10(3)/mcL Immature Gran % 0.20 % Dana Gran Abs 0.02 0.00 - 0.04 x10(3)/mcL Hepatic Function Panel Result Value Ref Range Total Protein 7.9 6.1 - 8.0 g/dL Albumin 4.5 3.2 - 5.2 g/dL AST 22 0 - 39 unit/L ALT 22 0 - 55 unit/L Alk Phos 92 40 - 130 unit/L Total Bilirubin 1.2 0.2 - 1.3 mg/dL Bili, Direct 0.2 0.0 - 0.3 mg/dL Magnesium Result Value Ref Range Magnesium 0.91 0.69 - 1.07 mmol/L HDL/Cholesterol Profile Result Value Ref Range Chol, Total 174 mg/dL HDL 47 mg/dL Chol/HDL Ratio 3.7 ratio Chol/HDL Interpretation See Note LDL Cholesterol, Direct Result Value Ref Range LDL Chol Direct 112 mg/dL Phosphorus Result Value Ref Range Phosphorus 3.3 2.5 - 4.5 mg/dL Hemoglobin A1c Result Value Ref Range Hemoglobin A1C 5.4 4.3 - 5.6 % Est Avg Gluc See note mg/dL Scan, Peripheral Blood Result Value Ref Range Plat Estimate Normal RBC Morphology Abnormal Macrocytes 1-5 /HPF Basic Metabolic Panel (non-fasting) Result Value Ref Range Glucose Lvl 99 65 - 199 mg/dL BUN 17 10 - 20 mg/dL Creatinine 0.70 (L) 0.80 - 1.50 mg/dL Sodium 139 135 - 145 mmol/L Potassium 4.0 3.5 - 5.0 mmol/L Chloride 105 98 - 107 mmol/L CO2 23 22 - 31 mmol/L Anion Gap 11 5 - 15 mmol/L Calcium 9.5 8.5 - 10.5 mg/dL Estimated GFR 95 >=60 mL/min/1.73 m?? Calcium Result Value Ref Range Calcium 9.5 8.5 - 10.5 mg/dL Magnesium Result Value Ref Range Magnesium 0.88 0.69 - 1.07 mmol/L Phosphorus Result Value Ref Range Phosphorus 3.7 2.5 - 4.5 mg/dL Hemogram Result Value Ref Range WBC 10.1 (H) 4.0 - 9.5 x10(3)/mcL RBC 4.31 (L) 4.58 - 5.54 x10(6)/mcL Hemoglobin 14.1 13.7 - 16.5 g/dL Hematocrit 41.2 40.5 - 48.5 % MCV 95.6 (H) 82.9 - 93.1 fL MCH 32.7 (H) 27.5 - 32.1 pg MCHC 34.2 32.0 - 35.7 g/dL Platelets 223 145 - 357 x10(3)/mcL RDWSD 48.8 (H) 36.0 - 45.0 fL RDWCV 13.7 11.4 - 13.8 % MPV 10.8 7.6 - 12.9 fL nRBC % Auto 0.0 % nRBC Abs Auto 0.000 0.000 - 0.000 x10(3)/mcL Differential, Automated Result Value Ref Range Neutrophils % 45.4 % Neutr Abs (ANC) 4.61 1.70 - 6.10 x10(3)/mcL Lymphocytes % 17.9 % Lymphocytes Abs 1.8 0.9 - 3.2 x10(3)/mcL Monocytes % 9.6 % Monocyte Abs 1.0 (H) 0.3 - 0.9 x10(3)/mcL Eosinophils % 26.1 % Eosinophils Abs 2.6 (H) 0.0 - 0.4 x10(3)/mcL Basophils % 0.7 % Basophils Abs 0.1 0.0 - 0.1 x10(3)/mcL Immature Gran % 0.30 % Dana Gran Abs 0.03 0.00 - 0.04 x10(3)/mcL Neurodiagnostics: CTA CoW 05/20/23: IMPRESSION 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 Right PICA is patent. Mild atherosclerotic plaque of the left ICA just below the skull base, without significant stenosis. No intracranial large vessel occlusion, interval stenoses or medium vessel/M2 occlusions identified. Assessment and Plan: Mirna Flores is a 77 y.o. male with PMH of AFIB on Xarelto (s/p ablation), HLD, HTN, CAD (s/p PCIin 2006, BRENDA distal LAD x2 / distal Lcx x2, ramus x1 at [facility]), brain abscess (s/p surgeryand ABX treatment in 2014) who presents with stuttering R hand numbness / weakness. The symptoms localize to a L MCA territory. MRI performed at OSH revealed few tiny foci of restricted diffusion in the high L frontal parietal region with tiny acute infarcts, and stable area of old infarction in the high R parietal region. 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 There was also note of mild atherosclerotic plaque in the L ICA below the skull base without significant stenosis; however, vessel imaging of the neck was not performed. 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 This AM, he says he is back to baseline and aside from a very subtle R pronator drift, gross motor strength in muscle groups are intact. We will await CTA of the neck and carotid U/S, TTE to see there is any surgical intervention to be offered. In the meantime will continue his AC and add on ASA. After workup if he continues to be stable and there is no acute surgical intervention indicated, we will plan to discharge him today. We will also reach out to his outpatient purification operator regarding safety from ophthalmology perspective for dual therapy given Hx of hemorrhage in the R eye. Alteplase: IV Thrombolytics decision time: 1210 Was IV Thrombolytics given?: No Other reasons (Hospital-related or other factors) 3 - 4.5 hour treatment window. Select all that apply.: Delay in patient arrival/outside window, Delay in stroke diagnosis # several punctate infarcts in the L frontoparietal region; suspect atheroembolic etiology -Admit to neurology, floor level of care -Neuro check & vitals Q4hrs / Q4hrs -Permissive HTN, treat SBP >220 with prn labetalol, enalaprilat -Aspirin 325mg now and then 81 mg daily -Check CBC, BMP, LFT, lipid profile, HbA1c, Mg, Phos, UA - LFT WNL - LDL 121 - A1c 5.4 -Atorvastatin 80 mg daily (was on 10 mg daily previously, though pt reports he was told to increasethis to 80 mg daily at [facility]) -Continue home Xarelto 20 mg nightly -TTE pending -12 lead EKG -Telemetry -EEG -CUS pending - consider vascular surgery consult if significant L ICA stenosis -defer repeat brain MRI for now -CTA CoW as above -CTA carotids pending -PT/OT # Home meds - timolol 1 drop both eyes BID - Holding home lisinopril - IF pt develops vision problems in R eye related to recent surgery-->PRN navmoikprudx-qrhkcka-mjbepxibc drops 1 drop in R eye, followed by timolol drops in both eyes 10 minutes later, followed by1 drop alphagan in the R eye 10 minutes later # Routine -Home Xarelto continued (DVT PPx) -RBOs -SCDs -Regular diet -Tylenol PRN -Up with assistance # FULL code Stroke Navigator Completed: Yes Caroline Singh DO Neurology Resident, PGY-3 05/21/23 Vascular Neurology Pager [phone] Standard [facility] [place] Screen: This screen is to be used to document a Swallow Screen prior to ingestion of water and /or oral medications for patients with possible stroke (Ischemic or Hemorrhagic). Exclusion Criteria: A swallow screen is not to be performed on patients who: have a decreased level of consciousness. are not able to follow simple commands. are hypoxic, or have increasing O2 needs or may need to be intubated. have a G/J tube for nutrition. have a recent history of a swallowing disorder *These patients should remain NPO (HOLD MEDS) and the physician notified for further orders. Swallow Screen Using Water: None of the Exclusion Criteria as mentioned above is present? Patient is alert and sitting upright? Able to close lips and tongue is midline? Able to cough, manage oral secretions with dry voice? ONLY IF ABOVE ALL YES, Able to swallow 30 ml of water without coughing, displaying a wet voice or choking? Repeat Twice. If YES to all responses, proceed with water and oral medications as well as diet as medical provider deems appropriate. Consider [employer]ISE [employer]OW [employer] MEMBER consult for full evaluation and diet recommendations. If NO to any of the responses, stop immediately, keep patient NPO and notify physician. Associated attestation - Fidel Barnett MD - 05/21/2023 10:46 PM EDT Neurology Staff Note Ready for DC to home today. Reviewed imaging findings with him * Argelia Crook RN - 05/20/2023 8:29 PM EDT Mirna Flores arrived to 519 @ 2019 from ED. Oriented to room, call hinkle within reach, educatedon importance of using prior to getting OOB, AVSS, incision, belongings updated in eDH, bed locked in low position, purposeful hourly rounding, bed/chair alarm on. documented in this encounter H&P Notes * Jose Campos DO - 05/20/2023 11:47 AM EDT Neurology Admission History and Physical Patient name: Mirna Flores Date of : 1945 PCP: Mirna Barrera DO Stroke Assessment: Date last well known:: 05/16/23 Time last well known:: 1700 Date of discovery of symptoms:: 05/16/23 Time of discovery of symptoms:: 1700 The time difference from patients last known well to ED arrival OR inpatient stroke alert was (choose one): Greater than 4.5 hours Date acute stroke team was at bedside:: 05/20/23 Time acute stroke team was at bedside:: 1200 CT interpretation date: 05/18/23 CT interpretation time:: 1345 Was dysphagia screen performed?: Yes Did patient pass dysphagia screen?: Yes Date of Dysphagia Screen: 05/20/23 Time of Dysphagia Screen: 1236 CC: R hand weakness HPI: Mirna Flores is a 77 y.o. male R handed male with a PMH of AFIB on Xarelto (s/p ablation), HLD, HTN, CAD (s/p PCI in 2007, BRENDA distal LAD x2 / distal Lcx x2, ramus x1 at [facility]), brain abscess (s/p surgery and ABX treatment in 2015) who presents with R hand numbness / weakness. Pt reports that he had eye surgery on Friday for cataract on his R eye and he subsequently developed hemorrhage. Around 5-6 PM that night he reports that his R arm felt weak and clumsy, which lasted for 10-15 minutes and then resolved. States that he couldn't move the hand very well but was able tomove the arm at the time. This recurred while he was eating supper that evening and he again had difficulty using utensils with his R hand. He had f/u the following morning and states that the purification operator had to drain blood from his eye, and had to do this again later that day. He states that later on Friday evening, the symptoms in the R arms occurred again. Then on Friday AM he continued to have intermittent symptoms and went to [facility] for further assessment. He states that he had an MRI performed there that showed 2 or 3 mini-strokes. He states that he was feeling back to normal last night, when around 8 PM the index finger of the Rhand went completely numb. He states that his R arm also again felt floppy. He states that he messaged the neurologist at [facility] who recommended that he present [place] [facility] [place]. 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 States that he was referred to vascular surgery here [place] [facility] though he has not seen them yet. Pt states that he no longer has numbness in the R hand at this time, though he feels that his R hand is still weaker than the L hand. Notably, pt recently underwent cardioversion on 05/08 for AFIB w/ RVR. Pt reports that he was not started on digoxin following the cardioversion. He does note that his metoprolol was discontinued following his cardioversion. He also endorses that he has felt slightly unstable on his feet (states he feels uncoordinated in the legs rather than feeling weak in his legs). Denies vision changes (other than the vision changes associated with cataract in R eye), changes inspeech, difficulty swallowing. 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 MRI from [facility] readas few tiny foci of restricted diffusion in the high L frontal parietal region with tiny acute infarcts, and stable area of old infarction in the high R parietal region. Home Medications: No current facility-administered medications on file prior to encounter. Current Outpatient Medications on File Prior to Encounter Medication Sig Dispense Refill rivaroxaban (Xarelto) 20 mg tablet Take 1 tablet by mouth daily. 90 tablet 3 lisinopriL (Zestril) 20 mg Tablet Take 20 mg by mouth daily. timoloL (Timoptic) 0.5 % Drops 2 times daily. atorvastatin (LIPITOR) 10 mg Tablet Take 10 mg by mouth daily. wsisqevhqatg-utuoyoh-upgfkntyy 1-0.5-0.1 % Drops, Suspension Apply 1 drop to eye as needed. Take 1 drop in the R eye for vision problems following surgery, followed by timolol 10 minutes later 1 dropin each eye brimonidine (Alphagan P) 0.1 % Drops Place 1 drop into the right eye as needed. 10 minutes after timolol for vision problems following cataract surgery [DISCONTINUED] metoprolol succinate XL (Toprol-XL) 50 mg Tablet Sustained Release 24 hr Take 1.5 tablets by mouth 2 times daily. (Patient taking differently: Take 50 mg by mouth 2 times daily.) 270 tablet 3 nitroGLYcerin (NITROSTAT) 0.4 mg Tablet, Sublingual Place 1 tablet under the tongue every 5 minutesas needed for Chest pain. 90 tablet 12 Current Medications: Scheduled Meds: Past Medical & Surgical History: Past Medical History: Diagnosis Date A-fib Brain abscess CAD (coronary artery disease) HLD (hyperlipidemia) HTN (hypertension) Past Surgical History: Procedure Laterality Date PRO CARDIOVERSION ELECTIVE ARRHYTHMIA EXTERNAL N/A 08/28/2022 CARDIOVERSION-ELECTIVE (WRVU 2.25) performed by Fred Maki MD at [facility] MA[facility] OR PRO STEREO BX/ASPIR/EXCIS, INTRACRANIAL LESN Right 01/27/2015 @STEREOTACTIC BX,ASP, OR EXC.-INTRACRANIAL LESION, W/SCAN performed by Jose Small MD at [facility] MA[facility] OR PRO STEREOTACTIC CPTR ASSTD PX CRANIAL, INTRADURAL Right 01/27/2015 STEREOTACTIC COMPUTER-ASSTD NAVIGATIONAL CRANIAL INTRADURAL performed by Jose Small MD at [facility] MA[facility] OR Allergy: Allergies Allergen Reactions Bee Pollen Anaphylaxis Bee Stings Use to carry Epi Pen, Penicillins Angioedema States as a child, had facial, lip swelling. Shellfish Containing Products Nausea And Vomiting SHRIMP only. Blotches, swelling, Shrimp Aspirin Other (See Comments) Nosebleeds after 2 weeks of therapy Ceftriaxone Other (See Comments) leukopenia Keppra [Levetiracetam] Other (See Comments) leukopenia Simvastatin Other (See Comments) Myalgia Family History: Family History Problem Relation Age of Onset Alzheimer Disease Brother Social History: Smoking: Denies EtOH: 2 shots of Nikhil Bonilla every evening Illicits: Denies Living situation: lives in [place] with his Occupation: retired in 2009 ([email or web address]) Social History Socioeconomic History Marital status: Spouse [...] Social History Narrative 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 Social Determinants of Health Financial Resource Strain: Not on file Food Insecurity: Not on file Transportation Needs: Not on file Physical Activity: Not on file Housing Stability: Not on file Review of systems: Reviewed and negative except where noted in the HPI Physical Exam: Vitals: Temp: [35.3 ??C (95.6 ??F)] Heart Rate: [58-63] Resp: [13-20] BP: (129-154)/(62-97) SpO2: [97 %-100 %] Heart Rate from SpO2: -- Gen: Patient of apparent stated age, well nourished, well developed, awake, alert, NAD Neck: Supple, no meningismus CV: RRR per masimo Resp: respirations appear unlabored on RA Abd: soft, nontender, nondistended Ext: No edema. No bony deformity Neuro Exam: MS: Awake, alert and oriented to self, age, month/year, clear language, no dysarthria, follows commands appropriately CN: PERRL, EOMI (2-3 beats nystagmus appreciated at end lateral gaze BL) visual jones full Facial sensation intact, no facial asymmetry Hearing intact to finger rub Palate elevates symmetrically, tongue protrudes midline SCM and trap strength intact Motor: Normal bulk and tone. UE: 5/5 R, 5/5 L Arm abduction at shoulder 5/5 R, 5/5 L Elbow extension 5/5 R, 5/5 L Elbow flexion 5-/5 R, 5/5 L Sap Architect LE: 5/5 R, 5/5 L Hip flexion 5/5 R, 5/5 L Knee extension 5/5 R, 5/5 L Knee flexion 5/5 R, 5/5 L Foot dorsiflexion 5/5 R, 5/5 L Foot plantar flexion Sensation: Intact to light touch throughout, no evidence of sensory extinction Reflexes: DTRs 2+ R, 2+ L Biceps 2+ R, 2+ L Brachioradialis 2+ R, 2+ L Triceps 2+ R, 2+ L Patellar 2+ R, 2+ L Achilles tendon Toes - mute BL (withdrawal response in the LLE) Coordination: Finger to nose intact, no dysmetria Rapid alternating movements & finger tapping smooth and symmetric Heel-kay intact No tremor Gait: deferred NIH Stroke Scale NIH Stroke Scale Date 05/20/23 NIH Stroke Scale Time 1237 Level of Consciousness 0 LOC Questions 0 LOC Commands 0 Best Gaze 0 Vision 0 Facial Palsy 0 Motor Arm, Left 0 Motor Arm, Right 0 Motor Leg, Left 0 Motor Leg, Right 0 Limb Ataxia 0 Sensory 0 Best Language 0 Dysarthria 0 Extinction and Inattention: 0 NIH Total Score 0 Labs: Recent Results (from the past 24 hour(s)) Basic Metabolic Panel (non-fasting) Result Value Ref Range Glucose Lvl 121 65 - 199 mg/dL BUN 17 10 - 20 mg/dL Creatinine 0.80 0.80 - 1.50 mg/dL Sodium 140 135 - 145 mmol/L Potassium 4.4 3.5 - 5.0 mmol/L Chloride 105 98 - 107 mmol/L CO2 24 22 - 31 mmol/L Anion Gap 11 5 - 15 mmol/L Calcium 10.2 8.5 - 10.5 mg/dL Estimated GFR 91 >=60 mL/min/1.73 m?? Hemogram Result Value Ref Range WBC 10.6 (H) 4.0 - 9.5 x10(3)/mcL RBC 4.73 4.58 - 5.54 x10(6)/mcL Hemoglobin 15.2 13.7 - 16.5 g/dL Hematocrit 45.0 40.5 - 48.5 % MCV 95.1 (H) 82.9 - 93.1 fL MCH 32.1 27.5 - 32.1 pg MCHC 33.8 32.0 - 35.7 g/dL Platelets 248 145 - 357 x10(3)/mcL RDWSD 48.2 (H) 36.0 - 45.0 fL RDWCV 13.8 11.4 - 13.8 % MPV 10.9 7.6 - 12.9 fL nRBC % Auto 0.0 % nRBC Abs Auto 0.000 0.000 - 0.000 x10(3)/mcL Differential, Automated Result Value Ref Range Neutrophils % 57.5 % Neutr Abs (ANC) 6.11 (H) 1.70 - 6.10 x10(3)/mcL Lymphocytes % 12.1 % Lymphocytes Abs 1.3 0.9 - 3.2 x10(3)/mcL Monocytes % 5.7 % Monocyte Abs 0.6 0.3 - 0.9 x10(3)/mcL Eosinophils % 23.8 % Eosinophils Abs 2.5 (H) 0.0 - 0.4 x10(3)/mcL Basophils % 0.7 % Basophils Abs 0.1 0.0 - 0.1 x10(3)/mcL Immature Gran % 0.20 % Dana Gran Abs 0.02 0.00 - 0.04 x10(3)/mcL Hepatic Function Panel Result Value Ref Range Total Protein 7.9 6.1 - 8.0 g/dL Albumin 4.5 3.2 - 5.2 g/dL AST 22 0 - 39 unit/L ALT 22 0 - 55 unit/L Alk Phos 92 40 - 130 unit/L Total Bilirubin 1.2 0.2 - 1.3 mg/dL Bili, Direct 0.2 0.0 - 0.3 mg/dL Magnesium Result Value Ref Range Magnesium 0.91 0.69 - 1.07 mmol/L HDL/Cholesterol Profile Result Value Ref Range Chol, Total 174 mg/dL HDL 47 mg/dL Chol/HDL Ratio 3.7 ratio Chol/HDL Interpretation See Note LDL Cholesterol, Direct Result Value Ref Range LDL Chol Direct 112 mg/dL Phosphorus Result Value Ref Range Phosphorus 3.3 2.5 - 4.5 mg/dL Hemoglobin A1c Result Value Ref Range Hemoglobin A1C 5.4 4.3 - 5.6 % Est Avg Gluc See note mg/dL Scan, Peripheral Blood Result Value Ref Range Plat Estimate Normal RBC Morphology Abnormal Macrocytes 1-5 /HPF Neurodiagnostics: CTA CoW 05/20/23: IMPRESSION 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 Right PICA is patent. Mild atherosclerotic plaque of the left ICA just below the skull base, without significant stenosis. No intracranial large vessel occlusion, interval stenoses or medium vessel/M2 occlusions identified. Assessment and Plan: Mirna Flores is a 77 y.o. male with PMH of AFIB on Xarelto (s/p ablation), HLD, HTN, CAD (s/p PCIin 2006, BRENDA distal LAD x2 / distal Lcx x2, ramus x1 at [facility]), brain abscess (s/p surgeryand ABX treatment in 2014) who presents with stuttering R hand numbness / weakness. The symptoms localize to a L MCA territory. MRI performed at OSH revealed few tiny foci of restricted diffusion in the high L frontal parietal region with tiny acute infarcts, and stable area of old infarction in the high R parietal region. 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 There was also note of mild atherosclerotic plaque in the L ICA below the skull base without significant stenosis; however, vessel imaging of the neck was not performed. 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 Will admit to the neurology service for additional work-up. At the time of my assessment patient reports that the numbness of his right hand is resolved, however he does still feel that he is still weaker in the right hand as compared to the left and does not feel that he is currently at his baseline. We will plan to obtain a CTA of the neck tomorrow morning to further evaluate for vessel diseaseof the carotids. We will also order a carotid ultrasound today to assess for significant carotid atherosclerosis and may need to consider involving vascular surgery. Patient was given 325 mg of aspirin in the emergency room and we will plan to continue him on aspirin 81 mg daily for now. We will continue his home Xarelto as well. Imaging was obtained from the encounter at [facility], so we will defer repeating an MRI for now. Alteplase: IV Thrombolytics decision time: 1210 Was IV Thrombolytics given?: No Other reasons (Hospital-related or other factors) 3 - 4.5 hour treatment window. Select all that apply.: Delay in patient arrival/outside window, Delay in stroke diagnosis # several punctate infarcts in the L frontoparietal region; suspect atheroembolic etiology -Admit to neurology, floor level of care -Neuro check & vitals Q4hrs / Q4hrs -Permissive HTN, treat SBP >220 with prn labetalol, enalaprilat -Aspirin 325mg now and then 81 mg daily -Check CBC, BMP, LFT, lipid profile, HbA1c, Mg, Phos, UA - LFT WNL - LDL 121 - A1c 5.4 -Atorvastatin 80 mg daily (was on 10 mg daily previously, though pt reports he was told to increasethis to 80 mg daily at [facility]) -Continue home Xarelto 20 mg nightly -TTE -12 lead EKG -Telemetry -EEG -CUS pending - consider vascular surgery consult if significant L ICA stenosis -defer repeat brain MRI for now -CTA CoW as above -CTA carotids pending -PT/OT/[employer]ISE [employer]OW TEAM MEMBER # Home meds - timolol 1 drop both eyes BID - IF pt develops vision problems in R eye related to recent surgery-->PRN dobndldvylvy-mnemtdy-qjswbgech drops 1 drop in R eye, followed by timolol drops in both eyes 10 minutes later, followed by1 drop alphagan in the R eye 10 minutes later # Routine -Home Xarelto continued (DVT PPx) -RBOs -SCDs -Regular diet -Tylenol PRN -Up with assistance # FULL code Stroke Navigator Completed: Yes Jose Campos DO Neurology Resident, PGY-2 05/20/23 Vascular Neurology Pager [phone] Case was discussed and pt was seen with attending neurologist Dr. Fidel Barnett MD Standard [facility] [place] Screen: This screen is to be used to document a Swallow Screen prior to ingestion of water and /or oral medications for patients with possible stroke (Ischemic or Hemorrhagic). Exclusion Criteria: A swallow screen is not to be performed on patients who: have a decreased level of consciousness. are not able to follow simple commands. are hypoxic, or have increasing O2 needs or may need to be intubated. have a G/J tube for nutrition. have a recent history of a swallowing disorder *These patients should remain NPO (HOLD MEDS) and the physician notified for further orders. Swallow Screen Using Water: None of the Exclusion Criteria as mentioned above is present? Patient is alert and sitting upright? Able to close lips and tongue is midline? Able to cough, manage oral secretions with dry voice? ONLY IF ABOVE ALL YES, Able to swallow 30 ml of water without coughing, displaying a wet voice or choking? Repeat Twice. If YES to all responses, proceed with water and oral medications as well as diet as medical provider deems appropriate. Consider [employer]ISE [employer]OW TE[employer] MEMBER consult for full evaluation and diet recommendations. If NO to any of the responses, stop immediately, keep patient NPO and notify physician. Associated attestation - Fidel Barnett MD - 05/20/2023 11:21 PM EDT Images from the original note were not included. Neurology Staff Note left hemispheric infarctions and TIAs, suspect atheroembolism from either proximal left ICA or archbut not adequately assessed on prior imaging. Recently cardioverted but fully anticoagulated throughout and was not on antiplatelet medications despite hx of extensive CAD. At increased risk for bleeding complications on dual therapy but this seems justified at this time Close neurologic monitoring Start aspirin and cont Xarelto CTA cervical vessels 24 hrs after recent CTA and check CUS I have reviewed the resident's history during the visit and I agree with the details as written. Myphysical examination confirms the resident's findings. The assessment and plan were formulated in discussion with me at the time of the visit and I agree with them as documented. I independently evaluated the patient. I reviewed the vital signs and the I/Os. Patient Vitals for the past 8 hrs: BP Temp Temp src Pulse Resp SpO2 05/20/232024 129/70 37 ??C (98.6 ??F) Oral -- 16 95 % 05/20/231999 123/77 -- -- 69 11 -- 05/20/23 1900 138/82 -- -- 76 14 -- 05/20/23 1730 148/74 -- -- 57 17 96 % 05/20/23 1630 (!) 136/97 -- -- 59 17 100 % 05/20/23 1600 (!) 143/95 -- -- 59 18 97 % Intake/Output Summary (Last 24 hours) at 05/20/2023 2318 Last data filed at 05/20/2023 2200 Gross per 24 hour Intake -- Output 200 ml Net -200 ml Exam findings: Speech is clear and there is no UE weakness noted. LT symmetric hands. I have examined the patient myself and personally reviewed all studies. In addition, I certify thatI am a D-H credentialed attending provider with admitting privileges and that the patient meets or has met medical necessity to require an inpatient IPI level of care meeting a minimum of two midnights or is on the [facility] inpatient only procedure list (status C) due to: neurologic instability requiring neurologic checks at least every 4 hours. acute stroke requiring neurologic checks at least every 4 hours. MCCs and CCs on admission (Present if in bold): Clinically significant cerebral edema, vasogenic Hyponatremia CHF acute, systolic Brain compression Hypernatremia CHF acute on chronic, systolic Clinically significant cerebral edema, cytotoxic Cerebellar ataxia CHF acute on chronic, diastolic Coma Hypertension, malignant CHF acute diastolic Hemiplegia Hypertension accelerated CHFchronic diastolic Hemiparesis Hypertensive encephalopathy Dementia with delrium Quadraplegia Malnutrition BMI<19 Dementia with depression Encephalopathy, metabolic Cachexia Alzheimer's Dementia with behavioral disturbance Encephalopathy, toxic Morbid obesity, BMI>40 Anoxic brain damage Encephalopathy, other CKD stage 4 (eGFR 15-30ml/min/1.73m2) Acute Kidney Injury Delirium, drug induced CKD stage 5 or ESRD Paroxysmal AF Persistent AF Longstanding persistent AF Permanent AF documented in this encounter ED Notes * Tylor Serna MD - 05/20/2023 11:15 AM EDT ED Attending Note HPI: Mirna Flores is a 77 y.o. male who presents to the Emergency Department for right hand numbness. Had recent cataract surgery, resulting in hemorrhage which required several procedures to drain. Patient thereafter developed right hand weakness/clumsiness, for which she was seen at [facility] with an MRI demonstrating, in his words, 3 mini strokes (suspect small punctate lesions). Patient's symptomsresolved completely. Reportedly, he had significant carotid stenosis at that time. He was referred to vascular here for further evaluation. However, last night he developed right arm sensory findings, which had not previously been part of his presentation. He was therefore advised to present to the emergency department here today. Patient notes mild overall/generalized slowing. He denies any changes in his balance. Only visual changes are expected postoperative from his cataract surgery. He does not have any speech symptoms. Physical Exam: NAD Anicteric/noninjected, + fatiguable horizontal nystagmus, mild R subconjunctival hemorrhage, pupilsreactive bilat MMM CTAB Cardiac exam without mgr, no overt arrhythmia noted Neuro: Trace generalized psychomotor slowing CN intact as tested Motor intact x 4 although slow to initiate movements with RUE FTN wnl bilat Sensation subjectively decreased but present R arm, R leg Ddx includes edema surrounding strokes from several days ago, new infarct, carotid stenosis/occlusion, Afib Plan: Will obtain vascular imaging here for planning purposes and have stroke team see patient, in context new sx and known carotid stenosis suspect will require admission. Tylor Serna MD 05/20/23 1119 * Leelee Oliveira MD - 05/20/2023 9:51 AM EDT Coming from home referred by [facility] neurology for right arm weakness. H/O Afib on Xarelto 20mg QD. 05/17 had cataract surgery complicated by hemorrhage requiring drainage. Admitted recently 05/18- for CVA with right-sided arm weakness which all but resolved. Has bilat carotid stenosis, R>L. Last night had right arm numbness. Had MRI/MRA performed and images were pushed by [facility]. Leelee Oliveira MD 05/20/23 3151 documented in this encounter Miscellaneous Notes * Initial Assessments - Dara Jean Baptiste - 05/21/2023 1:56 PM EDT Speech Language Pathology Contact Note - No Charge 05/21/2023 1:57pm Order received earlier today for bedside [employer] evaluation has now been cancelled by team (pt has reported no new [employer] needs) and pt is now pending discharge. Should discharge plan change or pt demonstrate any new/acute [employer] needs today, please feel free to reconsult service and page this [employer] directly. Thank you! Dara Jean Baptiste M.S., [facility]-[employer] Pager: [phone] Speech-Language Pathology Inpatient Rehabilitation Medicine * Initial Assessments - Enriqueta Herndon RN - 05/21/2023 1:37 PM EDTSummary: CM IA AND D/C NOTE D/C planning: Team: [facility] Pager: [phone] Pt to d/c home via private vehicle.. Pt/team feel no d/c needs identified at this time. Pt is awareof d/c plan and is in agreement. Enriqueta Herndon MSN-Ed, RN ACM airport skilled maintenance supervisor Office of Care Management Pager #[phone] * Plan of Care - Argelia Crook RN - 05/21/2023 4:20 AM EDT OUTCOME EVALUATION NOTE: OUTCOME SUMMARY: Pt A&O x4, denies pain, denies numbness & tingling. VSS. Tele in place with NSR, danilo overnight with some junctional rhythm's noted. Slept well. PLAN MOVING FORWARD: Q4 hr VS/NC, TTE and Carotid duplex needed. INDIVIDUALIZED FALL PREVENTION INTERVENTIONS: Patient-specific fall risk factors per assessment: none Assistance: SBA Supervision: Eyes on Surveillance: Bed locked in low position, call hinkle within reach, purposeful hourly rounding, clutter free environment, bed/chair alarm on Patient-specific fall prevention interventions for sensory deficits provided: N/A CPG GOAL OUTCOME EVALUATION: Continue care plan as documented. * Consult Note - Hue Rios, [facility] - 05/20/2023 2:44 PM EDTSummary: Geriatric ED Medication Reconciliation Attestation I have personally reviewed and agree with the student's assessment and recommendations Hue Rios, PharmD Clinical Pharmacy Review; Linnea Gimenez Geriatric ED Medication Reconciliation Allergies and Drug intolerance: Allergies Allergen Reactions Bee Pollen Anaphylaxis Bee Stings Use to carry Epi Pen, Penicillins Angioedema States as a child, had facial, lip swelling. Shellfish Containing Products Nausea And Vomiting SHRIMP only. Blotches, swelling, Shrimp Aspirin Other (See Comments) Nosebleeds after 2 weeks of therapy Ceftriaxone Other (See Comments) leukopenia Keppra [Levetiracetam] Other (See Comments) leukopenia Simvastatin Other (See Comments) Myalgia Reconciled Medication List: No current facility-administered medications for this encounter. Current Outpatient Medications Medication Sig Dispense Refill jlmyijnaojhg-khoqeco-osishzhae 1-0.5-0.1 % Drops, Suspension Apply 1 drop to eye as needed. Take 1 drop in the R eye for vision problems following surgery, followed by timolol 10 minutes later 1 dropin each eye brimonidine (Alphagan P) 0.1 % Drops Place 1 drop into the right eye as needed. 10 minutes after timolol for vision problems following cataract surgery rivaroxaban (Xarelto) 20 mg tablet Take 1 tablet by mouth daily. 90 tablet 3 lisinopriL (Zestril) 20 mg Tablet Take 20 mg by mouth daily. timoloL (Timoptic) 0.5 % Drops 2 times daily. atorvastatin (LIPITOR) 10 mg Tablet Take 10 mg by mouth daily. nitroGLYcerin (NITROSTAT) 0.4 mg Tablet, Sublingual Place 1 tablet under the tongue every 5 minutesas needed for Chest pain. 90 tablet 12 Medication list is up to date and reconciled Reviewed with patient and . Changes made to home medication list: Additions: None Deletions: Metoprolol succinate Changes: None Adherence tools used: [x] Pillbox [] Calendar [] Blister packaging [] Alarm [] Family/caregiver [] None [] Other: Adherence issues identified: None Medication-related problems identified: -Atorvastatin; patient reported being advised to increase atorvastatin to 80mg. Patient currently taking 10mg. ED pharmacist called patient's pharmacy and they do not currently have a prescription for atorvastatin 80mg. Will reach out to patient's disability case manager. -Metoprolol; patient reported being advised to stop metoprolol 2 weeks ago. Unclear reason for discontinuation in chart, will reach out to disability case manager for clarification. Beer's List Review: None Pertinent Drug Interactions: No interactions requiring intervention. Patient experiencing side effects from medications? no Counseling provided: -Reinforced taking Xarelto with an evening meal to increase absorption of medication. Linnea Gimenez 05/20/23 Duration: 45 minutes documented in this encounter Plan of Treatment Upcoming Encounters Date Type Department Care Team (Late st Contact Info) Description 09/08/2024 9:40 AM EDT Office Visit Cardiology at [address] [place] [address] Gonzales Torres MD [facility] [address] [place] [address] documented as of this encounter Procedures Procedure Name Priority Date/Time Associated Diagnosis Comments CAROTID DUPLEX, BILATERAL Routine 05/21/2023 11:24 PM EDT Acute ischemic stroke ECHO COMPLETE W CONTRAST Routine 05/21/2023 11:19 AM EDT Acute ischemic stroke CT CAROTIDS W CONTRAST Routine 05/21/2023 8:40 AM EDT HEMOGRAM Routine 05/21/2023 12:38 AM EDT DIFFERENTIAL, AUTOMATED Routine 05/21/2023 12:38 AM EDT CBC (WITH DIFF) Routine 05/21/2023 12:38 AM EDT PHOSPHORUS Routine 05/21/2023 12:38 AM EDT MAGNESIUM Routine 05/21/2023 12:38 AM EDT CALCIUM Routine 05/21/2023 12:38 AM EDT BASIC METABOLIC PANEL Routine 05/21/2023 12:38 AM EDT EKG 12-LEAD STAT 05/20/2023 12:[address] [place] [facility] [place] W CONTRAST STAT 05/20/2023 12:08 PM EDT SCAN, PERIPHERAL BLOOD STAT 05/20/2023 11:55 AM EDT HEMOGRAM STAT 05/20/2023 11:55 AM EDT DIFFERENTIAL, AUTOMATED STAT 05/20/2023 11:55 AM EDT CBC (WITH DIFF) STAT 05/20/2023 11:55 AM EDT PHOSPHORUS STAT 05/20/2023 11:55 AM EDT MAGNESIUM STAT 05/20/2023 11:55 AM EDT LDL CHOLESTEROL, DIRECT STAT 05/20/2023 11:55 AM EDT HDL/CHOL PROFILE STAT 05/20/2023 11:5 5 AM EDT HEMOGLOBIN A1C STAT 05/20/2023 11:55 AM EDT HEPATIC FUNCTION PANEL STAT 05/20/2023 11:55 AM EDT BASIC METABOLIC PANEL STAT 05/20/2023 11:55 AM EDT FILM LIBRARY STORAGE ONLY MR HEAD AND SPINE STAT 05/19/2023 12:00 AM EDT FILM LIBRARY STORAGE ONLY CT HEAD STAT 05/18/2023 12:00 AM EDT documented in this encounter Results * Carotid Duplex, Bilateral (05/21/2023 11:24 PM EDT) VB Text Report Department: Vascular Surgery Lab Patient: [id number] (MIRNA FLORES) CPT: 87500 Referring Physician: FIDEL BARNETT ?? Indications: Left hemispheric stroke Findings: ICA Proximal, Right ? PSV (cm/s): 571 ? EDV (cm/s): 173 ? ICA/CCA: 8.2 ? Plaque Structure: Echogenic ? Plaque Surface: Irregular ? %Stenosis: 80-99% ICA Distal, Right ? PSV (cm/s): 84 ? EDV (cm/s): 28 ? ICA/CCA: 1.2 CCA Distal, Right ? PSV (cm/s): 70 ? EDV (cm/s): 14 ? %Stenosis: <50% CCA Proximal, Right ? PSV (cm/s): 71 ? EDV (cm/s): 8 External Carotid Artery, Right ? PSV (cm/s): 116 ? EDV (cm/s): 0 ? %Stenosis: <50% Vertebral, Right ? PSV (cm/s): 29 ? EDV (cm/s): 0 ? Direction of Flow: Antegrade ICA Proximal, Left ? PSV (cm/s): 177 ? EDV (cm/s): 49 ? ICA/CCA: 2.4 ? Plaque Structure: Echogenic ? Plaque Surface: Irregular ? %Stenosis: 16-49% ICA Distal, Left ? PSV (cm/s): 113 ? EDV (cm/s): 36 ? ICA/CCA: 1.5 CCA Distal, Left ? PSV (cm/s): 73 ? EDV (cm/s): 16 ? %Stenosis: <50% CCA Proximal, Left ? PSV (cm/s): 81 ? EDV (cm/s): 16 External Carotid Artery, Left ? PSV (cm/s): 100 ? EDV (cm/s): 5 ? %Stenosis: <50% Vertebral, Left ? PSV (cm/s): 58 ? EDV (cm/s): 20 ? Direction of Flow: Antegrade Interpretation: RIGHT: [...] with normal antegrade Doppler waveforms and velocities. Comparison: ??No previous study in our vascular lab database for comparison. Dr. Barnett was notified of the results. Electronically Signed by: DEBORAH DARBY MD on 2023-05-26 07:25:25 AM [facility] VB Text Report End of Report [facility] 05/21/2023 11:2 4 PM EDT Fidel Barnett MD VASCULAR ORDERABLE S [facility] * ECHO COMPLETE W CONTRAST (05/21/2023 11:19 AM EDT) EF 65 HEARTLAB SYSTEM Anatomical Region Laterality Modality Cardiac Other 05/21/2023 9:58 AM EDT Narrative 05/21/2023 12:14 PM EDT ? Echocardiogram Report Name: MIRNA FLORES ? Study Date: 05/21/2023 09:58 AMBP: 143/79 mmHg ? Patient Location: [id number] A : 1945 ? Height: 187 cm ? Account: [id number] Age: 77 yrs ? Weight: 91 kg Gender: Male ?BSA: 2.2 m2 Ordering Physician: YTLOR SERNA Referring Physician: CASSIE HOFF Performed By: Cassie Sanchez RDMS Reason For Study: Stroke Interpreting Fellow: Cesar Singh. Exam Location: [facility]. Interpretation Summary - Technically limited study. - [...] There is no prior study for comparison. Left Ventricle Left ventricle is of normal size. Wall thickness is mildly increased. Left ventricular size and systolic function is normal. Left ventricular ejection fraction is estimated visually at 65%. There are no segmental wall motion abnormalities. Right Ventricle The right ventricle is of normal size. Right ventricular systolic function is normal. Left Atrium The left atrium is not well visualized. There is lipomatous hypertrophy of the interatrial septum. There is no evidence for a patent foramen ovale. Right Atrium The right atrium is not well visualized. Aortic Valve The aortic valve is tricuspid. The aortic valve is mildly thickened. There is aortic valve sclerosis without stenosis. There is no aortic regurgitation. Mitral Valve The mitral valve leaflets are thickened. There is heavy mitral annular calcification. Heart rate: 60 beats per minute. The estimated mean gradient across the mitral valve is 7 mmHg. The peak gradient across the mitral valve is 15 mmHg. The mitral valve pressure half-time is 1.6 ms. The mitral valve area calculated using the continuity equation is 0.89 cm2. There is mild mitral regurgitation. Tricuspid Valve The tricuspid valve is structurally normal. There is trace tricuspid regurgitation. Pulmonic Valve The pulmonic valve appears to be structurally and functionally normal. There is no valvular pulmonic stenosis. There is trace pulmonic valve regurgitation. Great Arteries The aortic root is of normal size. No abnormalities are identified. The maximum diameter of the proximal ascending aorta is 4.3 cm. The ascending aorta is dilated. Venous Inferior vena cava is normal in size. Inferior vena cava collapse greater than 50% with respiration. Pericardium/Pleural The pericardium appears normal. Hemodynamics Pulmonary artery hypertension could not be assessed due to inadequate tricuspid regurgitation jet. The estimated right atrial pressure is 3mmHg. Unable to assess diastolic function. ? 2D Measurements ? Volumes ?IVSd: 1.5 cm ? LAV(MOD-bp) Indexed: ?LVIDd: 4.2 cm ?28.3 ml/m2 ?LVIDs: 2.1 cm ?SV(LVOT): 69.7 ml ?LVPWd: 1.2 cm ?LV mass(C)d: 209.1 grams ? SI(LVOT): 32.2 ml/m2 ?LV mass(C)dI: 96.4 grams/m2 ?Ao root diam: 3.5 cm ?Ao root diam index: 1.6 ?asc Aorta Diam: 4.3 cm ?LVOT diam: 2.2 cm Doppler TR max fredy: 285.5 cm/sec RVSP(TR): 35.6 mmHg LV V1 VTI: 18.6 cm Ao V2 VTI: 26.0 cm Ao Max: 146.7 cm/sec Ao valve max: 8.6 mmHg Ao valve mean: 4.1 mmHg PERRY(I,D): 2.7 cm2 Dimensionless index Aov: 0.72 MV mean P.8 mmHg I ?WMSI = 1.00 ? % Normal = 100 ?Segments ??Size X - Cannot ?2 - ?4 - ?1-2 ? small Interpret ?1 - Normal ?? Hypokinetic 3 - Akinetic Dyskinetic ?? 3-5 ? moderate 5 - ? 6-14 ?large Aneurysmal ?15-16 ?? diffuse Procedure Note Denys Miller MD - 05/21/2023 Echocardiogram Report Name: MIRNA FLORES Study Date: 309:58 AMBP: 143/79 mmHg Patient Location: [id number] A : 1945 Height: 187 cm Account: [id number] Age: 77 yrs Weight: 91 kg Gender: Male BSA: 2.2 m2 Ordering Physician: TYLOR SERNA Referring Physician: CASSIE HOFF Performed By: Cassie Sanchez RDMS Reason For Study: Stroke Interpreting Fellow: Cesar Singh. Exam Location: [facility]. Interpretation Summary - Technically limited study. - Normal biventricular function with mildly increased left ventricularwall thickness. LVEF is 65% without wall motion abnormalities. - The mitral valve is severely calcified; cannot rule out small, mobileelements. There is moderate to severe calcific mitral valve stenosis (mean gradient7 mmHg at 60 bpm, MVA ~1 cm2 by continuity). There is mild mitral valveregurgitation. - The ascending aorta is moderately dilated in size to 4.3 cm. - There is no prior study for comparison. Left Ventricle Left ventricle is of normal size. Wall thickness is mildly increased.Left ventricular size and systolic function is normal. Left ventricularejection fraction is estimated visually at 65%. There are no segmental wallmotion abnormalities. Right Ventricle The right ventricle is of normal size. Right ventricular systolic functionis normal. Left Atrium The left atrium is not well visualized. There is lipomatous hypertrophy ofthe interatrial septum. There is no evidence for a patent foramen ovale. Right Atrium The right atrium is not well visualized. Aortic Valve The aortic valve is tricuspid. The aortic valve is mildly thickened. Thereis aortic valve sclerosis without stenosis. There is no aorticregurgitation. Mitral Valve The mitral valve leaflets are thickened. There is heavy mitral annular calcification. Heart rate: 60 beats per minute. The estimated meangradient across the mitral valve is 7 mmHg. The peak gradient across the mitral valve is15 mmHg. The mitral valve pressure half-time is 1.6 ms. The mitral valve areacalculated using the continuity equation is 0.89 cm2. There is mild mitralregurgitation. Tricuspid Valve The tricuspid valve is structurally normal. There is trace tricuspid regurgitation. Pulmonic Valve The pulmonic valve appears to be structurally and functionally normal.There is no valvular pulmonic stenosis. There is trace pulmonic valve regurgitation. Great Arteries The aortic root is of normal size. No abnormalities are identified. Themaximum diameter of the proximal ascending aorta is 4.3 cm. The ascending aortais dilated. Venous Inferior vena cava is normal in size. Inferior vena cava collapse greaterthan 50% with respiration. Pericardium/Pleural The pericardium appears normal. Hemodynamics Pulmonary artery hypertension could not be assessed due to inadequatetricuspid regurgitation jet. The estimated right atrial pressure is 3mmHg. Unable toassess diastolic function. 2D Measurements Volumes IVSd: 1.5 cm LAV(MOD-bp)Indexed: LVIDd: 4.2 cm 28.3 ml/m2 LVIDs: 2.1 cm SV(LVOT): 69.7ml LVPWd: 1.2 cm LV mass(C)d: 209.1 grams SI(LVOT): 32.2ml/m2 LV mass(C)dI: 96.4 grams/m2 Ao root diam: 3.5 cm Ao root diam index: 1.6 asc Aorta Diam: 4.3 cm LVOT diam: 2.2 cm Doppler TR max fredy: 285.5 cm/sec RVSP(TR): 35.6 mmHg LV V1 VTI: 18.6 cm Ao V2 VTI: 26.0 cm Ao Max: 146.7 cm/sec Ao valve max: 8.6 mmHg Ao valve mean: 4.1 mmHg PERRY(I,D): 2.7 cm2 Dimensionless index Aov: 0.72 MV mean P.8 mmHg I WMSI = 1.00 % Normal = 100 SegmentsSize X - Cannot 2 - 4 - 1-2small Interpret 1 - Normal Hypokinetic 3 - Akinetic Dyskinetic 3-5moderate 5 - 6-14large Aneurysmal 15-16diffuse Tylor Serna MD ECHO ORDERABLES * CT Angiogram Carotids (05/21/2023 8:40 AM EDT) Anatomical Region Laterality Modality Neck, Head Computed Tomogra phy Impressions 05/21/2023 9:53 AM EDT 1. ??Severe, greater than 90% stenosis of the proximal right internal carotid artery. 2. ??Moderate, approximately 50% stenosis of the proximal left ICA. 3. ??At least mild stenosis of the origin of the nondominant right vertebral artery, which is occluded at its distal cervical and proximal intradural segments. Thank you for letting us participate in the care of this patient. ??If you are a health care provider and have any questions regarding this report, please contact the number below. ??For patients who have questions please contact the health student career development specialist that requested your imaging first. ? Narrative 05/21/2023 9:53 AM EDT EXAMINATION: CT ANGIOGRAM CAROTIDS CLINICAL HISTORY: Pt with intermittent numbness/tingling of the R hand, concern for possible atherosclerotic disease in carotids TECHNIQUE: CTA of the neck performed after the intravenous administration of contrast. 65. MIP and 3-D volumetric reconstructions were created. COMPARISON: CT head May 20, 2023. CTA [place] [facility] [place] May 20, 2023. MRI brain, MRA head and neck May 19, 2023. FINDINGS: Calcified and noncalcified plaque at the aortic arch, proximal innominate and left subclavian arteries without significant stenosis. Minimal narrowing of the origin of the right subclavian artery due to calcified plaque. Shared origin of the innominate and left common carotid arteries. Right carotid: Common carotid artery is normal caliber. There is severe, greater than 90% stenosis of the right ICA origin plaque predominantly soft plaque. ICA is otherwise normal in caliber throughout the neck, tortuous distally. Left carotid: Normal caliber common carotid artery with minimal calcified plaque distally. Moderate, approximately 50% stenosis of the proximal left ICA due to calcified and noncalcified plaque at and just beyond the bifurcation. Mild plaque of the distal ICA just below the skull base without significant stenosis. Mild narrowing of the origin of the left vertebral artery, which is otherwise normal caliber throughout the neck and dominant. At least mild narrowing of the nondominant, diminutive right vertebral artery at its origin by calcified plaque, with stenosis at C1-2 progressing to occlusion from the posterior C1 turn to the level of PICA, at and beyond which there is normal contrast enhancement, likely retrograde. Right PICA is patent. Procedure Note Nelia Jay MD - 05/21/2023 EXAMINATION: CT ANGIOGRAM CAROTIDS CLINICAL HISTORY: Pt with intermittent numbness/tingling of the R hand,concern for possible atherosclerotic disease in carotids TECHNIQUE: CTA of the neck performed after the intravenous administration ofcontrast. 65. MIP and 3-D volumetric reconstructions were created. COMPARISON: CT head May 20, 2023. CTA [place] [facility] [place] May 20, 2023. MRI brain, MRAhead and neck May 19, 2023. FINDINGS: Calcified and noncalcified plaque at the aortic arch, proximal innominateand left subclavian arteries without significant stenosis. Minimal narrowingof the origin of the right subclavian artery due to calcified plaque. Sharedorigin of the innominate and left common carotid arteries. Right carotid: Common carotid artery is normal caliber. There is severe,greater than 90% stenosis of the right ICA origin plaque predominantly softplaque. ICA is otherwise normal in caliber throughout the neck, tortuous distally. Left carotid: Normal caliber common carotid artery with minimal calcifiedplaque distally. Moderate, approximately 50% stenosis of the proximal left ICAdue to calcified and noncalcified plaque at and just beyond the bifurcation.Mild plaque of the distal ICA just below the skull base without significantstenosis. Mild narrowing of the origin of the left vertebral artery, which isotherwise normal caliber throughout the neck and dominant. At least mild narrowing of the nondominant, diminutive right vertebralartery at its origin by calcified plaque, with stenosis at C1-2 progressing toocclusion from the posterior C1 turn to the level of PICA, at and beyond which thereis normal contrast enhancement, likely retrograde. Right PICA is patent. IMPRESSION 1. Severe, greater than 90% stenosis of the proximal right internalcarotid artery. 2. Moderate, approximately 50% stenosis of the proximal left ICA. 3. At least mild stenosis of the origin of the nondominant rightvertebral artery, which is occluded at its distal cervical and proximal intradural segments. Thank you for letting us participate in the care of this patient. If youare a health care provider and have any questions regarding this report,please contact the number below. For patients who have questions please contactthe health student career development specialist that requested your imaging first. Tylor Serna MD IMG CT ORDERABLES * (ABNORMAL) Differential, Automated (05/21/2023 12:38 AM EDT) Neutrophil % 45.4 % [facility] Neutrophil Absolute 4.61 1.70 - 6.10 x10(3)/mc L [facility] Lymph % 17.9 % [facility] Lymphocytes Abs 1.8 0.9 - 3.2 x10(3)/ L [facility] Monocyte % 9.6 % [facility] Monocyte Abs 1.0(H) 0.3 - 0.9 x10(3)/[facility] Eos % 26.1 % [facility] Eosinophils Abs 2.6(H) 0.0 - 0.4 x10(3)/[facility] Basophil % 0.7 % [facility] Baso Absolute 0.1 0.0 - 0.1 x10(3)/[facility] Immature Gran % 0.30 % [facility] Comment: Immature granulocytes(IG's)percentage and absolute count will include metamyelocytes, myelocytes, and promyelocytes. Blood smears from CBCs yielding IG's will be scanned manually for concordance. If this scan disagrees with the automated IG or if promyelocytes are noted, a manual differential will be performed. Immature Gran Absolute 0.03 0.00 - 0.04 x10(3)/ L [facility] Blood 05/21/2023 12:3 8 AM EDT 05/21/2023 1:10 AM EDT Narrative Resulting Agency Comment Spec In Lab Jose Campos DO HEMATOLOGY ORDERABLE S [facility] [place] [place] [address] * (ABNORMAL) Hemogram (05/21/2023 12:38 AM EDT) White Blood Cell 10.1(H) 4.0 - 9.5 x10(3)/ L [facility] Red Blood Cell 4.31(L) 4.58 - 5.54 x10(6)/mc L [facility] Hemoglobin 14.1 13.7 - 16.5 g/dL [facility] Hematocrit 41.2 40.5 - 48.5 % [facility] Mean Cell Volume 95.6(H) 82.9 - 93.1 fL [facility] Mean Cell Hemoglobin 32.7(H) 27.5 - 32.1 pg [facility] Mean Cell Hemoglobin Concentration 34.2 32.0 - 35.7 g/dL [facility] Platelet 223 145 - 357 x10(3)/mc L [facility] RDW Standard Deviation 48.8(H) 36.0 - 45.0 fL [facility] RDW coefficient of variation 13.7 11.4 - 13.8 % [facility] Mean Platelet Volume 10.8 7.6 - 12.9 fL [facility] NRBC% auto 0.0 % [facility] NRBC Absolute 0.000 0.000 - 0.000 x10(3)/mc L [facility] Blood 05/21/2023 12:3 8 AM EDT 05/21/2023 1:10 AM EDT Narrative Resulting Agency Comment Spec In Lab Jose Campos DO HEMATOLOGY ORDERABLE S [facility] [place] [address] * Phosphorus (05/21/2023 12:38 AM EDT) Phosphorus 3.7 2.5 - 4.5 mg/dL [facility] Blood 05/21/2023 12:3 8 AM EDT 05/21/2023 1:10 AM EDT Narrative Resulting Agency Comment Spec In Lab Tylor Serna MD CHEMISTRY ORDERABLES [facility] [place] [address] * Magnesium (05/21/2023 12:38 AM EDT) Magnesium 0.88 0.69 - 1.07 mmol/L [facility] Blood 05/21/2023 12:3 8 AM EDT 05/21/2023 1:10 AM EDT Narrative Resulting Agency Comment Spec In Lab Tylor Serna MD CHEMISTRY ORDERABLES Performing Organization Address City/[facility]/ZIP Co de Phone Number [facility] [place] [address] * Calcium (05/21/2023 12:38 AM EDT) Calcium 9.5 8.5 - 10.5 mg/dL [facility] Blood 05/21/2023 12:3 8 AM EDT 05/21/2023 1:10 AM EDT Narrative Resulting Agency Comment Spec In Lab Tylor Serna MD CHEMISTRY ORDERABLES Performing Organization Address [facility] Co de Phone Number [facility] [place] [address] * (ABNORMAL) Basic Metabolic Panel (non-fasting) (05/21/2023 12:38 AM EDT) Glucose 99 65 - 199 mg/dL [facility] Comment:Diabetes: >=200 mg/d L plus symptoms Blood Urea Nitrogen 17 10 - 20 mg/dL [facility] Creatinine 0.70(L) 0.80 - 1.50 mg/dL [facility] Sodium 139 135 - 145 mmol/L [facility] Potassium 4.0 3.5 - 5.0 mmol/L [facility] Comment: Please note: ??Patients with WBC >100,000 may have falsely elevated Potassium levels. ??For accurate Potassium quantification in these patients send serum separator tube (gold top) for subsequent determinations. ??Contact the Clinical Chemistry Laboratory if there are any questions. Chloride 105 98 - 107 mmol/L [facility] Carbon Dioxide 23 22 - 31 mmol/L [facility] Anion Gap 11 5 - 15 mmol/L [facility] Calcium 9.5 8.5 - 10.5 mg/dL [facility] Est Glomerular Filtration Rate 95 >=60 mL/min/1. 73 m?? [facility] Comment: This patient's estimated GFR [...] and symptoms in addition to eGFR. Blood 05/21/2023 12:3 8 AM EDT 05/21/2023 1:10 AM EDT Narrative Resulting Agency Comment Spec In Lab Tylor Serna MD CHEMISTRY ORDERABLES Performing Organization Address City/[facility]/[place] [address] * EKG 12 Lead (05/20/2023 12:46 PM EDT) Ventricular rate 60 BPM MUSE SYSTEM Atrial Rate 60 BPM MUSE SYSTEM P-R Interval 172 ms MUSE SYSTEM QRS Duration 74 ms MUSE SYSTEM Q-T Interval 472 ms MUSE SYSTEM QTC Calculated (Bezet) 472 ms MUSE SYSTEM Calculated P Sterling 16 degrees MUSE SYSTEM Calculated R Sterling 14 degrees MUSE SYSTEM Calculated T Sterling 63 degrees MUSE SYSTEM INTERPRETATION Sinus rhythm with Premature atrial complexes Nonspecific T wave abnormality Prolonged QT Abnormal ECG When compared with ECG of 05-FEB-2023 10:43, Sinus rhythm has replaced Atrial fibrillation T wave inversion no longer evident in Inferior leads Nonspecific T wave abnormality has replaced inverted T waves in Anterolateral leads QT has lengthened Confirmed by MD Hank, Marilyn ([id number]) on 05/20/2023 3:03:07 PM MUSE SYSTEM 05/20/2023 12:4 6 PM EDT 05/20/2023 3:03 PM EDT Tylor Serna MD ECG ORDERABLES Performing Organization Address City/[facility]/ZIP Co de Phone Number MUSE SYSTEM * CT Angiogram [place] (05/20/2023 12:08 PM EDT) Anatomical Region Laterality Modality Neck, Head Computed Tomogra phy Impressions 05/20/2023 12:38 PM EDT 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 Right PICA is patent. Mild atherosclerotic plaque of the left ICA just below the skull base, without significant stenosis. No intracranial large vessel occlusion, interval stenoses or medium vessel/M2 occlusions identified. Thank you for letting us participate in the care of this patient. ??If you are a health care provider and have any questions regarding this report, please contact the number below. ??For patients who have questions please contact the health student career development specialist that requested your imaging first. ? Electronically signed by: Jimbo Negron DO, [facility] ??([phone]), at 05/20/2023 12:38 PM Narrative 05/20/2023 12:38 PM EDT EXAMINATION: CT ANGIOGRAM [place] CLINICAL HISTORY: Stroke, follow up new deficits after 3 recent small punctate strokes several days ago pls eval carotid patency TECHNIQUE: CTA of the head performed after the intravenous administration of contrast. Administered 65.0 ml of OMNIPAQUE 350.00 mg/ml. MIP and 3-D volumetric reconstructions were created. 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 Right PICA is patent. Atherosclerotic calcification noted of the proximal right sided intradural vertebral artery. There is calcified and noncalcified plaque identified along the superior cervical left ICA just below the skull base. No significant stenosis. The upper cervical segments of the internal carotid arteries and left vertebral artery are otherwise unremarkable. There is atherosclerotic calcification and mild stenosis of the cavernous internal carotid arteries bilaterally. Intracranial ICA segments are otherwise patent and unremarkable, no evidence of significant stenosis. There are patent P-comms bilaterally, and a patent anterior communicating artery. Hypoplastic left P1 segment of the [place] R[place] noted. There is no large vessel occlusion or high-grade stenosis identified. No gross interval stenoses identified of the anterior or middle cerebral arteries. The vertebrobasilar system is otherwise patent, and unremarkable. Old right precentral gyrus infarct near vertex again noted, previously noted small foci of infarct on the left precentral gyrus are not visualized. No intracranial mass effect, or gross evidence of acute confluent ischemic infarct given limitations of contrast-enhanced CTA technique. Procedure Note Jimbo Negron, DO - 05/20/2023 EXAMINATION: CT ANGIOGRAM [place] CLINICAL HISTORY: Stroke, follow up new deficits after 3 recent small punctate strokes several days ago plseval carotid patency TECHNIQUE: CTA of the head performed after the intravenous administration ofcontrast. Administered 65.0 ml of OMNIPAQUE 350.00 mg/ml. MIP and 3-D volumetric reconstructions were created. COMPARISON: Brain MRI and MRA of the neck and [place] of 05/19/2023, head CT 05/18/2023, FINDINGS: The included portion of the right vertebral artery is occluded proximal tothe mid V4 segment, and PICA origin. Right PICA is patent. Atherosclerotic calcification noted of the proximal right sided intradural vertebralartery. There is calcified and noncalcified plaque identified along the superior cervical left ICA just below the skull base. No significant stenosis. The upper cervical segments of the internal carotid arteries and leftvertebral artery are otherwise unremarkable. There is atherosclerotic calcification and mild stenosis of thecavernous internal carotid arteries bilaterally. Intracranial ICA segments areotherwise patent and unremarkable, no evidence of significant stenosis. There are patent P-comms bilaterally, and a patent anteriorcommunicating artery. Hypoplastic left P1 segment of the R[place] R[place] noted. There is no large vessel occlusion or high-grade stenosis identified. [place] interval stenoses identified of the anterior or middle cerebralarteries. The vertebrobasilar system is otherwise patent, and unremarkable. Old right precentral gyrus infarct near vertex again noted, previouslynoted small foci of infarct on the left precentral gyrus are not visualized.No intracranial mass effect, or gross evidence of acute confluent ischemicinfarct given limitations of contrast-enhanced CTA technique. IMPRESSION Vertebral artery appears occluded between its imaged distal cervicalsegment and intradural segment, proximal to PICA. Right PICA is patent. Mild atherosclerotic plaque of the left ICA just below the skull base,without significant stenosis. No intracranial large vessel occlusion, interval stenoses or mediumvessel/M2 occlusions identified. Thank you for letting us participate in the care of this patient. If youare a health care provider and have any questions regarding this report,please contact the number below. For patients who have questions please contactthe health student career development specialist that requested your imaging first. Tylor Serna MD IMG CT ORDERABLES * Scan, Peripheral Blood (05/20/2023 11:55 AM EDT) Plat estimate Normal [facility] RBC Morphology Abnormal [facility] Macrocyte 1-5 /HPF [facility] Blood 05/20/2023 11:5 5 AM EDT 05/20/2023 12:07 PM EDT Narrative Resulting Agency Comment Spec In Lab Tylor Serna MD HEMATOLOGY ORDERABLE S [facility] [place] [address] * Hemoglobin A1c (05/20/2023 11:55 AM EDT) Hemoglobin A1c 5.4 4.3 - 5.6 % [facility] Comment: Reference Range: 4.3 - 5.6% 5.7 - 6.4% - Increased Risk of Developing Diabetes Mellitus >= 6.5% - Consistent with diagnosis of Diabetes Mellitus In the absence of hyperglycemia (i.e. plasma glucose > 200 mg/dL) or classic symptoms of hyperglycemia a repeat measurement of HbA1c should be performed on a separate sample to confirm the diagnosis. Diagnosis and Classification of Diabetes Mellitus, Diabetes Care 2013; 36: Suppl. 1, S60-82 Estimated Average Glucose See note mg/dL [facility] Comment: Estimated Average Glucose not appropriate for patients over 70 years of age. eAG equivalents for HbA1c percentages: HbA1c(%) ?eAG(mg/dL) 6.0 ?126 6.5 ?140 7.0 ?154 7.5 ?169 8.0 ?183 8.5 ?197 9.0 ?212 9.5 ?226 10.0 ? 240 Limitations: The eAG calculation has not been validated on women, individuals below 18 years old and above 70 years old, and individuals with hemoglobinopathies. Additional resources are available on the ADA website. Zachary LEONE, Kye J, Domenica R, et al. ??Translating the A1C assay into estimated average glucose values. ??Diabetes Care 2008:31(8):2411-2327. Blood Venous Draw / Unknown 05/20/2023 11:55 AM EDT 05/20/2023 12:12 PM EDT Narrative Resulting Agency Comment Spec In Lab Tylor Serna MD CHEMISTRY ORDERABLES [facility] [place] [address] * Phosphorus (05/20/2023 11:55 AM EDT) Phosphorus 3.3 2.5 - 4.5 mg/dL [facility] Blood Venous Draw / Unknown 05/20/2023 11:55 AM EDT 05/20/2023 12:07 PM EDT Narrative Resulting Agency Comment Spec In Lab Tylor Serna MD CHEMISTRY ORDERABLES Performing Organization Address City/[facility]/ZIP Co de Phone Number [facility] [place] [address] * LDL Cholesterol, Direct (05/20/2023 11:55 AM EDT) LDL Cholesterol, Direct 112 mg/dL [facility] Comment: Lowest Risk: <100 mg/dL Lower Risk: 100-129 mg/dL Borderline High Risk: 130-159 mg/dL High Risk: 160-189 mg/dL Very High Risk: >cw=096 mg/dL Blood Venous Draw / Unknown 05/20/2023 11:55 AM EDT 05/20/2023 12:07 PM EDT Narrative Resulting Agency Comment Spec In Lab Tylor Serna MD CHEMISTRY ORDERABLES Performing Organization Address [facility] Co de Phone Number [facility] [address] * HDL/Cholesterol Profile (05/20/2023 11:55 AM EDT) Cholesterol, Total 174 mg/dL [facility] Comment: Lower Risk: <200 mg/dL Average Risk: 200-239 mg/dL Higher Risk: >qh=151 mg/dL HDL Cholesterol 47 mg/dL [facility] Comment: Males: ?? Higher Risk: <40 mg/dL Females: ?? Higher Risk: <50 mg/dL Cholesterol/HDL Ratio 3.7 ratio [facility] Chol/HDL Interpretation See Note [facility] Comment: Lipid management should be guided by a patient? s ASCVD risk, goals and preferences. ACC/AHA Guidelines recommend high intensity statin if clinical ASCVD or LDL greater than or equal to 190 mg/dL. http://tinyurl.com/EII-MKW-Inmgioaxm Measure LDL if Total Cholesterol minus HDL Cholesterol is greater than 220 mg/dL. Adults aged 40-75 with LDL 70-189 mg/dL should have their 10 year ASCVD risk estimated with the ACC/AHA ASCVD risk automotive collision estimator http://tools.acc.org/FFEDP-Qzze-Xtmsiibll/ Statin should be discussed if risk greater than or equal to 7.5% in non-diabetics. With diabetes, moderate intensity statin is recommended if risk less than 7.5%, high intensity if risk greater than or equal to 7.5%. Annual lipid monitoring on statins is not necessary. Lifestyle modification is a critical component of ASCVD risk reduction. Blood Venous Draw / Unknown 05/20/2023 11:55 AM EDT 05/20/2023 12:07 PM EDT Narrative Resulting Agency Comment Spec In Lab Tylor Serna MD CHEMISTRY ORDERABLES Performing Organization Address [facility] Co de Phone Number [facility] [address] * Magnesium (05/20/2023 11:55 AM EDT) Magnesium 0.91 0.69 - 1.07 mmol/L [facility] Blood Venous Draw / Unknown 05/20/2023 11:55 AM EDT 05/20/2023 12:07 PM EDT Narrative Resulting Agency Comment Spec In Lab Tylor Serna MD CHEMISTRY ORDERABLES Performing Organization Address [facility] de Phone Number [facility] [place] [address] * Hepatic Function Panel (05/20/2023 11:55 AM EDT) Protein, Total 7.9 6.1 - 8.0 g/dL [facility] Albumin 4.5 3.2 - 5.2 g/dL [facility] Aspartate Aminotransferase 22 0 - 39 unit/L [facility] Alanine Aminotransferase 22 0 - 55 unit/L [facility] Alkaline Phosphatase 92 40 - 130 unit/L [facility] Bilirubin, Total 1.2 0.2 - 1.3 mg/dL [facility] Bilirubin, Direct 0.2 0.0 - 0.3 mg/dL [facility] Blood Venous Draw / Unknown 05/20/2023 11:55 AM EDT 05/20/2023 12:07 PM EDT Narrative Resulting Agency Comment Spec In Lab Tylor Serna MD CHEMISTRY ORDERABLES Performing Organization Address [facility]/State/[place] [address] * (ABNORMAL) Differential, Automated (05/20/2023 11:55 AM EDT) Neutrophil % 57.5 % [facility] Neutrophil Absolute 6.11(H) 1.70 - 6.10 x10(3)/[facility] Lymph % 12.1 % [facility] Lymphocytes Abs 1.3 0.9 - 3.2 x10(3)/[facility] Monocyte % 5.7 % [facility] Monocyte Abs 0.6 0.3 - 0.9 x10(3)/[facility] Eos % 23.8 % [facility] Eosinophils Abs 2.5(H) 0.0 - 0.4 x10(3)/[facility] Basophil % 0.7 % [facility] Baso Absolute 0.1 0.0 - 0.1 x10(3)/[facility] Immature Gran % 0.20 % [facility] Comment: Immature granulocytes(IG's)percentage and absolute count will include metamyelocytes, myelocytes, and promyelocytes. Blood smears from CBCs yielding IG's will be scanned manually for concordance. If this scan disagrees with the automated IG or if promyelocytes are noted, a manual differential will be performed. Immature Gran Absolute 0.02 0.00 - 0.04 x10(3)/[facility] Blood 05/20/2023 11:5 5 AM EDT 05/20/2023 12:07 PM EDT Narrative Resulting Agency Comment Spec In Lab Tylor Serna MD [place] [address] * (ABNORMAL) Hemogram (05/20/2023 11:55 AM EDT) White Blood Cell 10.6(H) 4.0 - 9.5 x10(3)/[facility] Red Blood Cell 4.73 4.58 - 5.54 x10(6)/mc L [facility] Hemoglobin 15.2 13.7 - 16.5 g/dL [facility] Hematocrit 45.0 40.5 - 48.5 % [facility] Mean Cell Volume 95.1(H) 82.9 - 93.1 fL [facility] Mean Cell Hemoglobin 32.1 27.5 - 32.1 pg [facility] Mean Cell Hemoglobin Concentration 33.8 32.0 - 35.7 g/dL [facility] Platelet 248 145 - 357 x10(3)/mc L [facility] RDW Standard Deviation 48.2(H) 36.0 - 45.0 fL [facility] RDW coefficient of variation 13.8 11.4 - 13.8 % [facility] Mean Platelet Volume 10.9 7.6 - 12.9 fL [facility] NRBC% auto 0.0 % [facility] NRBC Absolute 0.000 0.000 - 0.000 x10(3)/ L [facility] Blood 05/20/2023 11:5 5 AM EDT 05/20/2023 12:07 PM EDT Narrative Resulting Agency Comment Spec In Lab Tylor Serna MD HEMATOLOGY ORDERABLE S [facility] [place] [address] * Basic Metabolic Panel (non-fasting) (05/20/2023 11:55 AM EDT) Glucose 121 65 - 199 mg/dL [facility] Comment:Diabetes: >=200 mg/d L plus symptoms Blood Urea Nitrogen 17 10 - 20 mg/dL [facility] Creatinine 0.80 0.80 - 1.50 mg/dL [facility] Sodium 140 135 - 145 mmol/L [facility] Potassium 4.4 3.5 - 5.0 mmol/L [facility] Comment: Please note: ??Patients with WBC >100,000 may have falsely elevated Potassium levels. ??For accurate Potassium quantification in these patients send serum separator tube (gold top) for subsequent determinations. ??Contact the Clinical Chemistry Laboratory if there are any questions. Chloride 105 98 - 107 mmol/L [facility] Carbon Dioxide 24 22 - 31 mmol/L [facility] Anion Gap 11 5 - 15 mmol/L [facility] Calcium 10.2 8.5 - 10.5 mg/dL [facility] Est Glomerular Filtration Rate 91 >=60 mL/min/1. 73 m?? [facility] Comment: This patient's estimated GFR [...] and symptoms in addition to eGFR. Blood 05/20/2023 11:5 5 AM EDT 05/20/2023 12:07 PM EDT Narrative Resulting Agency Comment Spec In Lab Tylor Serna MD CHEMISTRY ORDERABLES Performing Organization Address City/[facility]/ZIP Co de Phone Number [facility] [place] [address] * Film Library- Storage Only MR Head and Spine (05/19/2023 12:00 AM EDT) Narrative RAD - 05/20/2023 11:33 AM EDT This exam is auto-finalizing. It's purpose is for storage only. Mirna Barrera DO [facility] FILM LIBRARY ORD ERABLES Performing Organization Address City/[facility]/ZIP Co de Phone Number [place], [place] * Film Library- Storage Only CT Head (05/18/2023 12:00 AM EDT) Narrative Dicom, Auditing User - 05/20/2023 11:33 AM EDT This exam is auto-finalizing. It's purpose is for storage only. Mirna Barrera DO [facility] FILM LIBRARY ORD ERABLES documented in this encounter Visit Diagnoses Diagnosis Acute ischemic stroke- Primary Unspecified cerebral artery occlusion with cerebral infarction Acute ischemic stroke Unspecified cerebral artery occlusion with cerebral infarction Stroke Unspecified cerebral artery occlusion with cerebral infarction documented in this encounter Admitting Diagnoses Diagnosis Acute ischemic stroke Unspecified cerebral artery occlusion with cerebral infarction Stroke Unspecified cerebral artery occlusion with cerebral infarction documented in this encounter Administered Medications Inactive Administered Medications - up to 3 most recent administrations Medication Order MAR Action Action Date Dose Rate Site acetaminophen (Tylenol) (32.02 mg/mL) oral liquid 975 mg 975 mg, Per G Tube, EVERY 6 HOURS PRN, Starting on Fri05/20/23 at 1633, Until Fri05/21/23 at 1620, Pain, Fever, pain or oral temperature greater than 100 degrees F (measured by mouth), Maximum dose of acetaminophen is 4,000 mg from all sources in 24 hours. When ordered for pain, acetaminophen should be given even when other ordered pain medications are indicated. , Routine acetaminophen (Tylenol) suppository 650 mg 650 mg, Rectal, EVERY 6 HOURS PRN, Starting on Fri05/20/23 at 1633, Until Fri05/21/23 at 1620, Pain, Fever, pain or oral temperature greater than 100 degrees F (measured by mouth), Maximum dose of acetaminophen is 4,000 mg from all sources in 24 hours. When ordered for pain, acetaminophen should be given even when other ordered pain medications are indicated. , Routine acetaminophen (Tylenol) tablet 975 mg 975 mg, Oral, EVERY 6 HOURS PRN, Starting on Fri05/20/23 at 1633, Until Fri05/21/23 at 1620, Pain, Fever, pain or oral temperature greater than 100 degrees F (measured by mouth), Maximum dose of acetaminophen is 4,000 mg from all sources in 24 hours. When ordered for pain, acetaminophen should be given even when other ordered pain medications are indicated. , Routine aspirin chewable tablet 324 mg 324 mg, Oral, ONCE, 1 dose, On Fri05/20/23 at 1539, Routine Given 05/20/2023 3:50 PM EDT 324 mg aspirin chewable tablet 81 mg 81 mg, Oral, DAILY, First dose on Fri05/21/23 at 0900, Until Discontinued, Routine Given 05/21/2023 8:09 AM EDT 81 mg atorvastatin (Lipitor) tablet 80 mg 80 mg, Oral, EVERY EVENING, First dose on Fri05/20/23 at 1700, Until Discontinued, Routine Given 05/20/2023 6:04 PM EDT 80 mg iohexoL (Omnipaque) (350 mg/mL) solution 0-200 mL 0-200 mL, Intravenous, ONCE PRN, 1 dose, Starting on Fri05/20/23 at 1208, Until Fri05/20/23 at 1208, Per Protocol, Warning Vesicant/Irritant Medication , Radiology Contrast, Routine Given 05/20/2023 12:08 PM EDT 65 mLs iohexoL (Omnipaque) (350 mg/mL) solution 0-200 mL 0-200 mL, Intravenous, ONCE PRN, 1 dose, Starting on Fri05/21/23 at 0837, Until Fri05/21/23 at 0838, Per Protocol, Warning Vesicant/Irritant Medication , Radiology Contrast, Routine Given 05/21/2023 8:38 AM EDT 65 mLs lisinopriL (Zestril) tablet 5 mg 5 mg, Oral, DAILY, First dose on Fri05/21/23 at 1000, Until Discontinued, Routine Given 05/21/2023 9:47 AM EDT 5 mg perflutren lipid microspheres (Definity) injection 0.5 mL 0.5 mL, Intravenous, ONCE PRN, 1 dose, Starting on Fri05/21/23 at 1120, Until Fri05/21/23 at 1121, Other, for enhancement of sub-optimal echo images, Echo Lab (Intra-Procedure), Routine Given 05/21/2023 11:21 AM EDT 0.5 mLs rivaroxaban (Xarelto) tablet 20 mg 20 mg, Oral, EVERY EVENING, First dose on Fri05/20/23 at 1700, Until Discontinued, Routine, Restricted anticoagulant, choose the most appropriate response: Approved indication of non-valvular atrial fibrillation Given 05/20/2023 6:04 PM EDT 20 mg sodium chloride 0.9 % (flush) (BD PosiFlush Normal Saline 0.9) flush 5 mL 5 mL, Intravenous, 2 TIMES DAILY, First dose on Fri05/20/23 at 2115, Until Discontinued, Routine Given 05/21/2023 8:11 AM EDT 5 mLs Given 05/20/2023 10:27 PM EDT 5 mLs documented in this encounter Active and Recently Administered Medications Times are shown in EDT. Scheduled Medication Order 05/19/2023 05/20/2023 05/21/2023 aspirin chewable tablet 324 mg (COMPLETED) 324 mg, Oral, ONCE, 1 dose, On Fri05/20/23 at 1539, Routine 1550 (Given - Provider: Trish Haynes LPN) aspirin chewable tablet 81 mg 81 mg, Oral, DAILY, First dose on Fri05/21/23 at 0900, Until Discontinued, Routine 0809 (Given - Provid er: Nayla Collins RN) atorvastatin (Lipitor) tablet 80 mg 80 mg, Oral, EVERY EVENING, First dose on Fri05/20/23 at 1700, Until Discontinued, Routine 180 (Given - Provider: Jimbo Montoya NRP) lisinopriL (Zestril) tablet 5 mg 5 mg, Oral, DAILY, First dose on Fri05/21/23 at 1000, Until Discontinued, Routine 09 (Given - Provid er: Nayla Collins RN) polyethylene glycoL (Miralax) packet 17 g 17 g, Oral, DAILY, First dose on Fri05/21/23 at 0900, Until Discontinued, Routine 08 (Not Given - Provider: Nayla Collins RN - Reason: Patient/family refused) rivaroxaban (Xarelto) tablet 20 mg 20 mg, Oral, EVERY EVENING, First dose on Fri05/20/23 at 1700, Until Discontinued, Routine, Restricted anticoagulant, choose the most appropriate response: Approved indication of non-valvular atrial fibrillation 1803 (Given - Provider: Jimbo Montoya NRP) sodium chloride 0.9 % (flush) (BD PosiFlush Normal Saline 0.9) flush 5 mL 5 mL, Intravenous, 2 TIMES DAILY, First dose on Fri05/20/23 at 2115, Until Discontinued, Routine 222 (Given - Provider: Argelia Crook RN) 0811 (Given - Provider: Nayla Collins RN) timoloL (Timoptic) 0.5 % ophthalmic solution 1 drop 1 drop, Both Eyes, 2 TIMES DAILY, First dose on Fri05/20/23 at 2100, Until Discontinued, Routine 2100 (Not Given - Provider: Argelia Crook RN - Reason: Patient/family refused) 0900 (Not Given - Provider: Nayla Collins RN - Reason: Patient/family refused) PRN Medication Order 05/19/2023 05/20/2023 05/21/2023 acetaminophen (Tylenol) (32.02 mg/mL) oral liquid 975 mg(Linked Group 1) 975 mg, Per G Tube, EVERY 6 HOURS PRN, Starting on Fri05/20/23 at 1633, Until Fri05/21/23 at 1620, Pain, Fever, pain or oral temperature greater than 100 degrees F (measured by mouth), Maximum dose of acetaminophen is 4,000 mg from all sources in 24 hours. When ordered for pain, acetaminophen should be given even when other ordered pain medications are indicated. , Routine acetaminophen (Tylenol) suppository 650 mg(Linked Group 1) 650 mg, Rectal, EVERY 6 HOURS PRN, Starting on Fri05/20/23 at 1633, Until Fri05/21/23 at 1620, Pain, Fever, pain or oral temperature greater than 100 degrees F (measured by mouth), Maximum dose of acetaminophen is 4,000 mg from all sources in 24 hours. When ordered for pain, acetaminophen should be given even when other ordered pain medications are indicated. , Routine acetaminophen (Tylenol) tablet 975 mg(Linked Group 1) 975 mg, Oral, EVERY 6 HOURS PRN, Starting on Fri05/20/23 at 1633, Until Fri05/21/23 at 1620, Pain, Fever, pain or oral temperature greater than 100 degrees F (measured by mouth), Maximum dose of acetaminophen is 4,000 mg from all sources in 24 hours. When ordered for pain, acetaminophen should be given even when other ordered pain medications are indicated. , Routine bisacodyL (Dulcolax) suppository 10 mg 10 mg, Rectal, DAILY PRN, Starting on Fri05/20/23 at 2028, Until Fri05/21/23 at 1620, Constipation, Administer if needed per patient's routine or if no bowel movement within 48 hours to achieve: (1) One bowel movement at least every 48 hours, AND (2) Without straining. If multiple PRN bowel medications ordered, start with magnesium hydroxide, then bisacodyL. Multiple medications may be given concomitantly for constipation. , Routine brimonidine (Alphagan) 0.2 % ophthalmic solution 1 drop 1 drop, Right Eye, PRN, Starting on Fri05/20/23 at 1633, Until Fri05/21/23 at 1620, for vision problems associated with recent surgery (to be given 10 minutes after timolol is given if necessary) enalaprilat (Vasotec) (1.25 mg/mL) injection 1.25 mg 1.25 mg, Intravenous, Administer over 5 Minutes, EVERY 6 HOURS PRN, Starting on Fri05/20/23 at 1633, Until Fri05/21/23 at 1620, hypertension , Systolic blood pressure (SBP) goal LESS THAN 220 mmHg. Administer if blood pressure control not at goal in 30 minutes despite labetaloL when SBP is greater than 220 mmHg or diastolic blood pressure (DBP) is greater than 110 mmHg. Note: enalaprilat can be given with labetaloL or niCARdipine., Routine iohexoL (Omnipaque) (350 mg/mL) solution 0-200 mL (COMPLETED) 0-200 mL, Intravenous, ONCE PRN, 1 dose, Starting on Fri05/20/23 at 1208, Until Fri05/20/23 at 1208, Per Protocol, Warning Vesicant/Irritant Medication , Radiology Contrast, Routine 1208 (Given - Provider: Luca Bustamante) iohexoL (Omnipaque) (350 mg/mL) solution 0-200 mL (COMPLETED) 0-200 mL, Intravenous, ONCE PRN, 1 dose, Starting on Fri05/21/23 at 0837, Until Fri05/21/23 at 0838, Per Protocol, Warning Vesicant/Irritant Medication , Radiology Contrast, Routine 0838 (Given - Provid er: Carlos Conn) labetaloL (Normodyne) (5 mg/mL) injection solution 10-20 mg 10-20 mg, Intravenous, Administer over 2 Minutes, EVERY 15 MIN PRN, Starting on Fri05/20/23 at 1633, Until Fri05/21/23 at 1620, High Blood Pressure, - Systolic blood pressure (SBP) goal LESS THAN 220 mmHg. Start with 10 mg/dose every 15 minutes. If not at goal with 10 mg/dose then increase to 20 mg/dose for subsequent dosing. - Do not exceed 300 mg per day. - Repeat every 15 minutes for SBP greater than 220 mmHg. - Hold if pulse is less than 50 beats per minute. If labetaloL does not satisfactorily control BP within 30 minutes, consider enalaprilat or niCARdipine., Routine lidocaine (Xylocaine) 1% (10 mg/mL) injection 3 mg 3 mg (0.3 mL), Subcutaneous, ONCE PRN, 1 dose, Starting on Fri05/20/23 at 2027, Until Fri05/21/23 at 1620, for discomfort with PIV insertion, Routine perflutren lipid microspheres (Definity) injection 0.5 mL (COMPLETED) 0.5 mL, Intravenous, ONCE PRN, 1 dose, Starting on Fri05/21/23 at 1120, Until Fri05/21/23 at 1121, Other, for enhancement of sub-optimal echo images, Echo Lab (Intra-Procedure), Routine 1121 (Given - Provid er: Shin Erickson) senna-docusate (Pericolace) 8.6-50 mg per tablet 2 tablet 2 tablet, Oral, 2 TIMES DAILY PRN, Starting on Fri05/20/23 at 2027, Until Fri05/21/23 at 1620, Constipation, Administer to achieve 1 soft bowel movement daily without straining , Routine sodium chloride 0.9 % (flush) (BD PosiFlush Normal Saline 0.9) flush 5-20 mL 5-20 mL, Intravenous, EVERY 1 MIN PRN, Starting on Fri05/20/23 at 2027, Until Fri05/21/23 at 1620, flush, Flush pertains to all indwelling lines. Flush per protocol found in the job aid using the link provided on this medication record., Routine Linked Groups Order Group 1: acetaminophen (Tylenol) tablet 975 mgJump to med 975 mg, Oral, EVERY 6 HOURS PRN, Starting on Fri05/20/23 at 1633, Until Fri05/21/23 at 1620, Pain, Fever, pain or oral temperature greater than 100 degrees F (measured by mouth), Maximum dose of acetaminophen is 4,000 mg from all sources in 24 hours. When ordered for pain, acetaminophen should be given even when other ordered pain medications are indicated. , Routine Or acetaminophen (Tylenol) (32.02 mg/mL) oral liquid 975 mgJump to med 975 mg, Per G Tube, EVERY 6 HOURS PRN, Starting on Fri05/20/23 at 1633, Until Fri05/21/23 at 1620, Pain, Fever, pain or oral temperature greater than 100 degrees F (measured by mouth), Maximum dose of acetaminophen is 4,000 mg from all sources in 24 hours. When ordered for pain, acetaminophen should be given even when other ordered pain medications are indicated. , Routine Or acetaminophen (Tylenol) suppository 650 mgJump to med 650 mg, Rectal, EVERY 6 HOURS PRN, Starting on Fri05/20/23 at 1633, Until Fri05/21/23 at 1620, Pain, Fever, pain or oral temperature greater than 100 degrees F (measured by mouth), Maximum dose of acetaminophen is 4,000 mg from all sources in 24 hours. When ordered for pain, acetaminophen should be given even when other ordered pain medications are indicated. , Routine documented in this encounter Care Teams Wrapping Clerk Relationship Specialty Start Date End Date Mirna Barrera DO [address] [facility] [place] [address] PCP - General Family Medicine 07/01/18 documented as of this encounter
--- OUTSIDE RECORDS SUMMARY | 2024-07-21 19:28 | XMS_ITS | Encounter Summary ---
[place] [address] Care Team Providers Care Plastics Production Machine Operator Name Role Phone Camacho Barrera DO Primary Care Provider [phone] Encounter Details Date Type Department Care Team (Late st Contact Info) Description 05/19/2023 Ancillary Procedure [place]iology [place] [id number] Social History Tobacco Use Types Packs/Day Years Used Date Smoking Tobacco: Never Smokeless Tobacco: Never Alcohol Use Standard Drinks/Week Comments Yes 14 (1 standard drink = 0.6 oz pu re alcohol) 2-3 drinks/night [facility] Inpatient Questions Answer Date Recorded Does Anyone [...] 9:40 AM EDT Office Visit Cardiology at [address] [place] [address] Gonzales Torres MD [facility] [place] [address] documented as of this encounter Procedures Procedure Name Priority Date/Time Associated Diagnosis Comments FILM LIBRARY STORAGE ONLY MR HEAD AND SPINE STAT 05/19/2023 12:00 AM EDT documented in this encounter Results * Film Library- Storage Only MR Head and Spine (05/19/2023 12:00 AM EDT) Narrative [facility] - 05/20/2023 11:33 AM EDT This exam is auto-finalizing. It's purpose is for storage only. Camacho Barrera DO Jose Miguel FILM LIBRARY ORD ERABLES Performing Organization Address City/State/[facility] Co de Phone Number [place], [place] documented in this encounter Visit Diagnoses Not on filedocumented in this encounter Care Teams Plastics Production Machine Operator Relationship Specialty Start Date End Date Camacho Barrera DO [address] [facility] [place] [address] PCP - General Family Medicine 07/01/18 documented as of this encounter
--- OUTSIDE RECORDS SUMMARY | 2024-07-21 19:28 | XMS_ITS | Encounter Summary ---
[place] [address] Care Team Providers Care Batch Roller Operator Name Role Phone Camacho Barrera DO Primary Care Provider [phone] Reason for Visit * Reason Onset Date Comments Medication Refill 01/02/2023 Encounter Details Date Type Department Care Team (Late st Contact Info) Description 01/02/2023 Refill Cardiology at [address] [phone] Gonzales Torres MD [facility] [place] [address] Medication Refill Social History Tobacco Use Types [...] 9:40 AM EDT Office Visit Cardiology at [address] [place] [phone] Gonzales Torres MD [facility] [place] [address] documented as of this encounter Visit Diagnoses Diagnosis Atrial fibrillation, unspecified type documented in this encounter Care Teams Batch Roller Operator Relationship Specialty Start Date End Date Camacho Barrera DO [address] [place] [address] PCP - General Family Medicine 07/01/18 documented as of this encounter
--- OUTSIDE RECORDS SUMMARY | 2024-07-21 19:28 | XMS_ITS | Encounter Summary ---
[place] [address] Care Team Providers Care Support Teacher Name Role Phone Camacho Barrera DO Primary Care Provider [phone] Reason for Referral * Consultation (Routine) - Closed Specialty Diagnoses / Procedures Referred By Contac t Referred To Contact [facility] Diagnoses Other intervertebral disc displacement, lumbar region Lumbar disc herniation/ MRI 04/22/22 & XR 04/20/22 in [facility] Camacho Barrera DO [address] [place] [address] [facility] [place] [address] Referral ID Status Reason Start Date Expiration Date V isits Requested Visits Authorized [id number] Closed Evaluate and Treat 05/21/2022 05/21/2023 3 3 Encounter Details Date Type Department Care Team (Latest Contact Info) Description 05/21/2022 Transcribe Orders e[facility] Incoming Referrals [phone] Camacho Barrera DO [address] [place] [address] Other intervertebral disc displacement, lumbar region Social History Tobacco Use Types Packs/Day Years [...] 9:40 AM EDT Office Visit Cardiology at [address] [phone] Gonzales Torres MD [facility] [place] [address] Scheduled Referrals Name Type Priority Associated Diagnoses Orde r Schedule Referral to [facility] (Internal only) Outpatient Referral Routine Other intervertebral disc displacement, lumbar region Ordered: 05/21/2022 documented as of this encounter Visit Diagnoses Diagnosis Other intervertebral disc displacement, lumbar region documented in this encounter Care Teams Support Teacher Relationship Specialty Start Date End Date Camacho Barrera DO [address] [place] [address] PCP - General Family Medicine 07/01/18 documented as of this encounter
--- OUTSIDE RECORDS SUMMARY | 2024-07-21 19:28 | XMS_ITS | Encounter Summary ---
[place] [address] Care Team Providers Care Specialty Development Consultant Name Role Phone Camacho Barrera DO Primary Care Provider [phone] Reason for Visit * Auth/Cert Specialty Diagnoses / Procedures Referred By Contac t Referred To Contact Diagnoses Other persistent atrial fibrillation atrial fibrillation Procedures PRO CARDIOVERSION ELECTIVE ARRHYTHMIA EXTERNAL CARDIOVERSION-ELECTIVE (WRVU 2.25) Fred Maki MD [facility] [address] [facility] Referral ID Status Reason Start Date Expiration Date Visits Re quested Visits Authorized [id number] 1 1 Encounter Details Date Type Department Care Team (Late st Contact Info) Description 08/28/2022 11:16 AM EDT Anesthesia Event [place] [address] Alisa Miller MD [facility] [place] [address] Anesthesia Record Procedure Summary Procedure Name Responsible Anesthesiologist Anesthesia Start Time Anesthesia Stop Time CARDIOVERSION-ELECT SHAE (WRVU 2) Alisa Miller MD 08/28/22 1116 08/28/22 1138 Events Date Time Event Comment 08/28/2022 1116 AN Verify 1116 Start 1119 An Start Data 1121 Anesthesia Ready 1127 AN Defib 120J 1136 1136 an stop data 1138 Recovery or ICU Handoff Sandee ent care was transferred to the destination unit staff after review of the patient's medical history, current anesthetic/surgical status and plan, according to the Provider Handoff Checklist. 1138 Stop Meds Name Total Propofol 100 mg ePHEDrine 5 mg lactated ringers infusion 200 mL * Agents Name O2 Air N2O O2 Auxiliary Flowmeter 1 * Blood No blood administrations on file. Lines, Drains, and Airways Type Details Placement Removal (RETIRED) PICC Line - Single Lumen 01/28/15; 1405; median cubital vein right (antecubital fossa); LDA not present upon assessment; 05/20/23; 1156 01/28/15 1405 by Sveta Westbrook RN 05/20/23 1156 by Jimbo Montoya NRP (RETIRED) Peripheral IV Line - Single Lumen 08/28/22; 1103; 20 gauge; distraction, appears comfortable, tolerated well; 08/28/22; 1230 08/28/22 1103 by Ediwna Hughes RN 08/28/22 1230 by Franky Chase RN documented in this encounter Social History [...] OR Notes * Anesthesia Postprocedure Evaluation - Alisa Miller MD - 08/28/2022 12:07 PM EDT Department of Anesthesiology Post-procedure Note Patient: Camacho Flores Procedure Summary Date: 08/28/22 Room / Location: [facility] MINOR SURGERY / [facility] MAIN OR Anesthesia Start: 1116 Anesthesia Stop: 1138 Procedure: CARDIOVERSION-ELECTIVE (WRVU 2.25) (N/A ) Diagnosis: Persistent atrial fibrillation (atrial fibrillation) Surgeons: Fred Maki MD Responsible Provider: Alisa Miller MD Anesthesia Type: general ASA Status: 2 All Anesthesia Providers: Anesthesiologist: Alisa Miller MD WELDING EQUIPMENT SALES REPRESENTATIVE: Belen Hayes CRNA Student Nurse Fur Cutting Machine Operator: Ofe Roblero Vitals Value Taken Time BP 107/73 08/28/22 1200 Temp 36.3 ??C (97.3 ??F) 08/28/22 1141 Pulse 76 08/28/22 1207 Resp 19 08/28/22 1207 SpO2 94 % 08/28/22 1207 Pain Level 0 08/28/22 1141 Vitals shown include unvalidated device data. Patient Location: PACU/[facility] Level of Consciousness: Awake and Alert Pain Management: Satisfactory Analgesia PONV: None Cardiovascular Status: At Baseline and Hemodynamically Stable Respiratory Status: At Baseline and Room Air Postoperative Fluid Status: Intravascular EUvolemia Possible Anesthetic Complications: NONE apparent at time of evaluation Final Primary Anesthesia Type: MAC (The anesthetic type performed was the same as planned.) Comments: Pt did great ALISA MILLER MD * Anesthesia Preprocedure Evaluation - Alisa Miller MD - 08/27/2022 12:51 PM EDT Pre-Anesthesia Evaluation for: Camacho Flores a 76 y.o. male. Procedure(s): C[facility] Patient Active Problem List Diagnosis Date Noted ??? Status post ablation of atrial fibrillation 10/20/2018 ??? ASCVD (arteriosclerotic cardiovascular disease) 07/26/2018 ??? Atrial fibrillation 07/26/2018 ??? Hypertension 07/26/2018 ??? HLD (hyperlipidemia) 07/26/2018 ??? Chest pain 07/26/2018 ??? Brain abscess 01/31/2015 Past Medical History: Diagnosis Date ??? A-fib ??? Brain abscess ??? CAD (coronary artery disease) ??? HLD (hyperlipidemia) ??? HTN (hypertension) Past Surgical History: Procedure Laterality Date ??? PRO STEREO BX/ASPIR/EXCIS, INTRACRANIAL LESN Right 01/27/2015 @STEREOTACTIC BX,ASP, OR EXC.-INTRACRANIAL LESION, W/SCAN performed by Jose Small MD at [facility] MAIN OR ??? PRO STEREOTACTIC CPTR ASSTD PX CRANIAL, INTRADURAL Right 01/27/2015 STEREOTACTIC COMPUTER-ASSTD NAVIGATIONAL CRANIAL INTRADURAL performed by Jose Small MD at [facility] MAIN OR Social History Tobacco Use ??? Smoking status: Never Smoker ??? Smokeless tobacco: Never Used Substance Use Topics ??? Alcohol use: Not on file Comment: 2-3 drinks/night Social History Substance and Sexual Activity Drug Use No Allergies Allergen Reactions ??? Bee Pollen Anaphylaxis Bee Stings Use to carry Epi Pen, ??? Penicillins Angioedema States as a child, had facial, lip swelling. ??? Shellfish Containing Products Nausea And Vomiting SHRIMP only. Blotches, swelling, ??? Aspirin Other (See Comments) Nosebleeds after 2 weeks of therapy ??? Ceftriaxone Other (See Comments) leukopenia ??? Keppra [Levetiracetam] Other (See Comments) leukopenia ??? Simvastatin Other (See Comments) Myalgia Medications: MAR and/or home medications have been reviewed. Physical Exam: Preprocedure Vitals Current as of 08/27/22 1251 No BP, pulse, respiration, SpO2, or temperature recorded. Height: Weight: BMI: IBW: Airway Assessment: Mallampati: II TM distance: >3 FB Neck ROM: full Cardiovascular Assessment: Rhythm: regular Pulmonary Assessment: breath sounds clear to auscultation Dental Assessment: Misc Assessment: IV access: Peripheral line Last Filed Perioperative Cognitive Screening None Anesthesia Plan: ASA 2 general, with a(n) intravenous induction 76 y/o here fro CV for A fibee PMH: on eliquis, HTN, CAD ( stent, decades), brain abscess s/p BX , EtOH Per week PSH: anterior airway grade 4 Plan : sedation .The patient was informed of the risks of anesthesia, and consent was obtained. These risks include, but are not limited to, PONV, pain, intraop awareness (expected), conversion to general anesthesia, and other rare but serious complications such as major organ damage, allergies, blood transfusions, and dental/lip trauma. Region - Other Informed Consent: Anesthetic plan and risks discussed with patient. Plan discussed with WELDING EQUIPMENT SALES REPRESENTATIVE. Anesthesia Screening documented in this encounter Plan of Treatment Upcoming Encounters Date Type Department Care Team (Late st Contact Info) Description 09/08/2024 9:40 AM EDT Office Visit Cardiology at [place] [address] [place] [address] Gonzales Torres MD [facility] [place] [address] documented as of this encounter Visit Diagnoses Not on filedocumented in this encounter Administered Medications Inactive Administered Medications - up to 3 most recent administrations Medication Order MAR Action Action Date Dose Rate Site ePHEDrine sulfate (5 mg/mL) multi-dose injection Intravenous, PRN, Starting on Fri08/28/22 at 1130, Until Fri08/28/22 at 1138, Anesthesia Intra-op, Routine Given 08/28/2022 11:30 AM EDT 5 mg lactated ringers infusion 1,000 mL, at 100 mL/hr, Intravenous, CONTINUOUS, Starting on Fri08/28/22 at 1100, Until Fri08/28/22 at 1230, Day of Surgery (Day of Procedure) New Bag 08/28/2022 11:16 AM EDT propofoL (Diprivan) 10 mg/mL bolus injection (Anesthesia) Intravenous, PRN, Starting on Fri08/28/22 at 1125, Until Fri08/28/22 at 1138, Anesthesia Intra-op Given 08/28/2022 11:25 AM EDT 100 mg documented in this encounter Care Teams Specialty Development Consultant Relationship Specialty Start Date End Date Camacho Barrera DO [address] [place] [address] PCP - General Family Medicine 07/01/18 documented as of this encounter
--- OUTSIDE RECORDS SUMMARY | 2024-07-21 19:28 | XMS_ITS | Encounter Summary ---
Author Organization [facility] [place] [address] Care Team Providers Care Spiral Tube Winder Helper Name Role Phone Camacho Barrera DO Primary Care Provider [phone] Reason for Visit * Auth/Cert Specialty Diagnoses / Procedures Referred By Contac t Referred To Contact Diagnoses Other persistent atrial fibrillation atrial fibrillation Procedures PRO CARDIOVERSION ELECTIVE ARRHYTHMIA EXTERNAL CARDIOVERSION-ELECTIVE (WRVU 2.25) Fred Maki MD [facility] [place] [address] [facility] Referral ID Status Reason Start Date Expiration Date Visits Re quested Visits Authorized [id number] 1 1 Encounter Details Date Type Department Care Team (Late st Contact Info) Description 08/28/2022 11:30 AM EDT - 08/28/2022 12:00 PM EDT Surgery [place] [address] Fred Maki MD [facility] [place] [address] CARDIOVERSION-ELECTIVE (WRVU 2) Social History Tobacco Use Types Packs/Day Years [...] the adhesive pads were placed, call the toll gate tender phone representative at . We will schedule a follow-up appointment with the toll gate tender here, or you will be scheduled to [...] the adhesive pads were placed, call the toll gate tender phone representative at . We will schedule a follow-up appointment with the toll gate tender here, or you will be scheduled to see your local doctor soon. September 11, 2022 9am at [facility] with Dr. Torres for follow upafter [...] Birthdate: 1945 Admit date: 08/28/2022 Attending Physician: Frde Maki MD Please see outpatient note today for details. Harriett Badillo APRN 08/28/22 documented in this encounter Miscellaneous Notes * Op Note - Fred Maki MD - 08/28/2022 11:27 AM EDT Images from the original note were not included. [facility] Operative Note Patient Name: Camacho Flores : 1945 MR#: [id number] Case Date: 08/28/2022 Risk Engineer: Fred Maki MD, PhD Referring Provider: Gonzales [...] resident or fellow. Fred Maki MD, PhD, [facility] Cardiac Electrophysiology 08/28/2022 11:51 AM documented in this encounter Plan of Treatment Upcoming Encounters Date Type Department Care Team (Late st Contact Info) Description 09/08/2024 9:40 AM EDT Office Visit Cardiology at [address] [address] Gonzales Torres MD [facility] [place] [address] documented as of this encounter Procedures Procedure Name Priority Date/Time Associated Diagnosis Comments EKG 12-LEAD STAT 08/28/2022 12:09 PM EDT Persistent atrial fibrillation Cardioversion Elective Arrhythmia External (82789) 08/28/2022 11:20 AM EDT Persistent atrial fibrillation [...] (Bezet) 477 ms MUSE SYSTEM Calculated P [place] 77 degrees MUSE SYSTEM Calculated R [place] 27 degrees MUSE SYSTEM Calculated T [place] 114 degrees MUSE SYSTEM INTERPRETATION Normal sinus rhythm Nonspecific T wave abnormality Prolonged QTc Abnormal ECG When compared with ECG of 28-AUG-2022 09:14, (unconfirmed) Sinus rhythm has replaced Atrial flutter Vent. rate has decreased BY ??42 BPM T wave inversion no longer evident in Inferior leads Confirmed by MD Mckinney Danette ([id number]) on 08/28/2022 7:59:47 PM MUSE SYSTEM 08/28/2022 12:0 9 PM EDT 08/28/2022 7:59 PM EDT Harriett Badillo RAIL LAYER ECG ORDERABLES yavalu SYSTEM documented in this encounter Visit Diagnoses Diagnosis Persistent atrial fibrillation Atrial fibrillation Persistent atrial fibrillation Atrial fibrillation documented in [...] CRNA) documented in this encounter Care Teams Spiral Tube Winder Helper Relationship Specialty Start Date End Date Camacho Barrera DO [address] [place] [address] PCP - General Family Medicine 07/01/18 documented as of this encounter
--- OUTSIDE RECORDS SUMMARY | 2024-07-21 19:28 | XMS_ITS | Encounter Summary ---
Author Organization [facility] [place] [address] Care Team Providers Care Machine Rough Rounder Name Role Phone Camacho Barrera DO Primary Care Provider [phone] Encounter Details Date Type Department Care Team (Late st Contact Info) Description 01/14/2023 External Results [place] [phone] Social History Tobacco Use Types Packs/Day Years [...] AM EDT Office Visit Cardiology at [address] [place] [phone] Gonzales Torres MD [facility] [place] [address] documented as of this encounter Procedures Procedure Name Priority Date/Time Associated Diagnosis Comments ECG SCAN Routine 01/14/2023 documented in this encounter Results * Scan Doc: ECG (01/14/2023) Historical Provider MD COULTER MGR SCAN EX T ORDR/RSLT documented in this encounter Visit Diagnoses Not on filedocumented in this encounter Care Teams Machine Rough Rounder Relationship Specialty Start Date End Date Camacho Barrera DO [address] [place] [address] PCP - General Family Medicine 07/01/18 documented as of this encounter
--- OUTSIDE RECORDS SUMMARY | 2024-07-21 19:28 | XMS_ITS | Encounter Summary ---
Author Organization [facility] [place] [address] Care Team Providers Care Expediter Clerk Name Role Phone Camacho Barrera DO Primary Care Provider [phone] Encounter Details Date Type Department Care Team (Late st Contact Info) Description 02/05/2023 Telephone Cardiology at [address] [place] [address] Gonzales Torres MD [facility] [address] Social History Tobacco Use Types Packs/Day Years [...] encounter Miscellaneous Notes * Telephone Encounter - Christiano Kiser RN - 02/18/2023 9:[address] Torres, Can you let him know that his Zio patch showed atrial fibrillation for the entire duration of recording; if he is doing OK, then we will just follow up as routine. There is an echo pending still. Called patient and let him know. * Telephone Encounter - Christiano Kiser RN - 02/05/2023 9:47 AM EST Spoke to patient, he said he sent back Zio Patch last Friday (01/31/23). * Telephone Encounter - Christiano Kiser RN - 02/05/2023 9:44 AM EST ----- Message from Gonzales Torres MD sent at 02/05/2023 8:49 AM EST ----- Regarding: Zio Hi Salma Can you see if his recently performed Zio is available to review? Abby Edward documented in this encounter Plan of Treatment Upcoming Encounters Date Type Department Care Team (Late st Contact Info) Description 09/08/2024 9:40 AM EDT Office Visit Cardiology at [address] [address] Gonzales Torres MD [facility] [place] [address] documented as of this encounter Visit Diagnoses Not on filedocumented in this encounter Care Teams Expediter Clerk Relationship Specialty Start Date End Date Camacho Barrera DO [address] [place] [address] PCP - General Family Medicine 07/01/18 documented as of this encounter
--- OUTSIDE RECORDS SUMMARY | 2024-07-21 19:28 | XMS_ITS | Encounter Summary ---
Author Organization [facility] Address [facility] [place] [address] Care Team Providers Care Functional Manager Name Role Phone Camacho Barrera DO Primary Care Provider [phone] Reason for Referral * Physical Therapy (Routine) - Closed Specialty Diagnoses / Procedures Referred By Contac t Referred To Contact Diagnoses Radiculopathy of lumbar region Central spinal stenosis Richar Ojeda PA [facility] [place] [address] Physical Therapy, [address],[facility] [address] [place] [address] Referral ID Status Reason Start Date Expiration Date V isits Requested Visits Authorized [id number] Closed Evaluate and Treat 05/22/2022 11/18/2022 12 12 Reason for Visit * Reason Comments Back Pain Left Leg Pain * Consultation (Routine) - Closed Specialty Diagnoses / Procedures Referred By Contac t Referred To Contact [facility] Diagnoses Other intervertebral disc displacement, lumbar region Lumbar disc herniation/ MRI 04/22/22 & XR 04/20/22 in [facility] Camacho Barrera DO [address] [place] [address] [facility] [address] Referral ID Status Reason Start Date Expiration Date V isits Requested Visits Authorized [id number] Closed Evaluate and Treat 05/21/2022 05/21/2023 3 3 Encounter Details Date Type Department Care Team (Latest Contact Info) Description 05/22/2022 3:15 PM EDT Office Visit [place] [address] Richar Ojeda PA [facility] [address] PAIN MANAGEMENT [place] [id number] Radiculopathy of lumbar region; Central spinal stenosis Social History Tobacco Use Types Packs/Day [...] Sign Reading Time Taken Comments Blood Pressure 113/88 05/22/2022 2:56 PM EDT Pulse 95 05/22/2022 2:56 PM EDT Temperature - - Respiratory Rate - - Oxygen Saturation - - Inhaled Oxygen Concentration - - Weight 97.5 kg (215 lb) 05/22/2022 2:56 PM EDT Height 188 cm (6' 2) 05/22/2022 2:56 PM EDT Body Mass Index 27.6 05/22/2022 2:56 PM EDT documented in this encounter Progress Notes * Richar Ojeda PA - 05/22/2022 3:15 PM EDT Images from the original note were not included. [facility] Richar Ojeda PA-C Dear Colleagues, I had the pleasure of seeing this patient at the [facility] for evaluation. HPI: Camacho is a 76 year old male who presents to clinic for evaluation of back pain with radiation intoleft lower extremity. Inciting event is thought to be after a fall from vasovagal episode, though back and leg symptoms started after a few days. This was about 3 weeks ago. He presented to ED which prescribed oxycodone and he discontinued this. Pain at this point is well controlled. He states he proctor s limited walking tolerance due to calf cramping. Pain has significantly improved and rated at 2-3/10. He states his left leg feels weak and clumsy. No bowel bladder changes. Physical Exam: Resting comfortably in no acute distress. Ambulates without assistive device. Gait is antalgic and cautious. He has slight altered sensation in left lateral calf. Motor strength is decreased with 4/5left ankle dorsiflexion and 4/5 left EHL. Reflexes are trace at patella and achilles bilaterally. Imaging: Reviewed MRI of lumbar spine obtained 04/22/22 which is most significant for a L4-5 left paracentraldisc with central narrowing and foraminal narrowing worse on the left. Assessment: Tomas is a 76 year old male who presents to clinic for evaluation of low back pain with radiation into left lower extremity in the setting of L4-5 left paracentral disc herniation with extrusion causing both central and left>right foraminal narrowing. His pain has improved however he continues to have trouble with his left lower extremity. He has muscle weakness with dorsiflexion and EHL strength and symptoms follow more of an L5 pattern. We discussed treatment options moving forward. He has already had improvement in pain symptoms which is reassuring. He finds current symptoms tolerable. Wediscussed starting physical therapy which he would like to pursue. Referral sent. We will have him follow up in 4-6 weeks for clinical check. If symptoms worsen or fail to improve LESI could be considered. If symptoms persist or walking tolerance does not improve could consider decompression surgery. We will follow up 4-6 weeks unless symptoms change. Plan: 1. PT 2. Follow up 4-6 weeks sooner if symptoms change Sincerely, Richar Ojeda PA-C [facility] 05/22/2022 documented in this encounter Plan of Treatment Upcoming Encounters Date Type Department Care Team (Late Contact Info) Description 09/08/2024 9:40 AM EDT Office Visit Cardiology at [address] [place] [address] Gonzales Torres MD [facility] [place] [address] Scheduled Referrals Name Type Priority Associated Diagnoses Orde r Schedule Referral to Physical Therapy Outpatient Referral Routine Radiculopathy of lumbar region Central spinal stenosis Ordered: 05/22/2022 documented as of this encounter Visit Diagnoses Diagnosis Radiculopathy of lumbar region Thoracic or lumbosacral neuritis or radiculitis, unspecified Central spinal stenosis Spinal stenosis, unspecified region other than cervical documented in this encounter Care Teams Functional Manager Relationship Specialty Start Date End Date Camacho Barrera DO [address] [facility] [place] [address] PCP - General Family Medicine 07/01/18 documented as of this encounter
--- OUTSIDE RECORDS SUMMARY | 2024-07-21 19:28 | XMS_ITS | Encounter Summary ---
[place] [address] Care Team Providers Care Inspector Eyeglass Frames Name Role Phone Camacho Barrera DO Primary Care Provider [phone] Encounter Details Date Type Department Care Team (Late st Contact Info) Description 01/14/2023 [place] [address] Zen Zavaleta Jr., MD [facility] [place] [address] Social History Tobacco Use Types Packs/Day Years [...] encounter Miscellaneous Notes * Telephone Encounter - Zen Zavaleta Jr., MD - 01/14/2023 11:55 PM EST Contacted by [facility] ED for cardiology consultation. History taking and objective data are per the OSH ED provider/staff member. Referring Provider: Jesus Patino MD [address] [place] [id number] Camacho Flores 77 y.o. w / a pmh sig for CAD, HTN, DLD, AF s/p PVI who presented with lightheadedness and SOB. Found to have suspected PNA and AF. Also concern for ADHF given apparently dilated IVC on US and elevated BNP Remains in atrial flutter at about 140 bpm despite IV diltiazem. BNP: 2600 A/P: recommended continued titration of diltiazem via oral administration, and then titration of metoprolol. However, I explained that while the patient volume overloaded, rate control will be difficult. documented in this encounter Plan of Treatment Upcoming Encounters Date Type Department Care Team (Late st Contact Info) Description 09/08/2024 9:40 AM EDT Office Visit Cardiology at [address] [address] Gonzales Torres MD [facility] [place] [address] documented as of this encounter Visit Diagnoses Not on filedocumented in this encounter Care Teams Inspector Eyeglass Frames Relationship Specialty Start Date End Date Camacho Barrera DO [address] [place] [address] PCP - General Family Medicine 07/01/18 documented as of this encounter
--- OUTSIDE RECORDS SUMMARY | 2024-07-21 19:28 | XMS_ITS | Encounter Summary ---
[place] [address] Care Team Providers Care Humidifier Maintenance Worker Name Role Phone Camacho Barrera DO Primary Care Provider [phone] Reason for Referral * Consultation (Routine) - Closed Specialty Diagnoses / Procedures Referred By Mike johnson Referred To Contact Vascular Surgery Diagnoses Right-sided extracranial carotid artery stenosis ROUTINE , No studies - Right-sided extracranial carotid artery stenosis , STORE LOSS PREVENTION MANAGER / PA / Milagros Vail APRN [facility] [place] [place] [address] [facility] [address] [place] [address] Referral ID Status Reason Start Date Expiration Date V isits Requested Visits Authorized [id number] Closed Consult, Test & Treat 05/27/2023 05/26/2024 1 1 Encounter Details Date Type Department Care Team (Latest Contact Info) Description 05/27/2023 11:00 AM EDT [place] [address] 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; Right-sided extracranial carotid artery stenosis; Hyperlipidemia, unspecified hyperlipidemia type; Primary hypertension; Paroxysmal atrial fibrillation Social History Tobacco Use Types [...] Sign Reading Time Taken Comments Blood Pressure 138/66 05/27/2023 10:33 AM EDT Pulse 56 05/27/2023 10:33 AM EDT Temperature - - Respiratory Rate - - Oxygen Saturation - - Inhaled Oxygen Concentration - - Weight 96.6 kg (213 lb) 05/27/2023 10:33 AM EDT Height 188 cm (6' 2) 05/27/2023 10:33 AM EDT Body Mass Index 27.35 05/27/2023 10:33 AM EDT documented in this encounter Progress Notes * Milagros Parra, [employer] - 05/27/2023 11:00 AM EDT Images from the original note were not included. Cerebrovascular Disease and Stroke Program Department of Neurology [place] [id number] t: [phone] / f: [phone] [employer] Improving Post-Acute Care Transitions after Stroke Camacho Flores is a 77 y.o. male with PMHx of AFIB on Xarelto (s/p ablation), HLD, HTN, CAD (s/p PCI in 2006, BRENDA distal LAD x2 / distal Lcx x2, ramus x1 at [facility]), brain abscess (s/p surgery and ABX treatment in 2015) who presented with stuttering R hand numbness / weakness and was found to have several punctate infarcts in the left frontoparietal region. Per Chart Review: Camacho Flores is a [...] was thromboembolism. We discussed with his outpatient development consultant clinic who felt it was safe for [...] right hand numbness has resolved Ongoing rehab: Notes that he has a scheduled PT visit that he had prior to stroke for a vertebrae in his back Tomas comes to the appointment today with his , Kisha. He notes that he has not experienced any right hand numbness since leaving the hospital and that it has resolved. He checks his blood pressure at home and his SBP is typically in the 120s. He last had a cardioversion about 3 weeks ago. He denies any recent falls. He reports good compliance with his medication. No data to display 05/22/2022 12:20 PM Stroke:PROMIS-10 [id number] Health Score 34.9 Monkyf17-Odsnwc Health Score 38.8 Health in general Fair [...] I49.3 Acute ischemic stroke I63.9 Stroke I63.9 Allergies Allergen Reactions Bee Pollen Anaphylaxis Bee [...] Outpatient Medications Marked as Taking for the 05/27/23 encounter (Office Visit) with Milagros Parra APRN Medication Sig Dispense Refill benzonatate (Tessalon) 200 mg capsule Take 200 mg by mouth 3 times daily as needed for Cough. OneTouch Verio test strips Strip USE TO CHECK BLOOD GLUCOSE DAILY DIRECTED Exam Patient Vitals for the past 24 hrs: Pulse BP 05/27/23 1033 56 138/66 General: alert, NAD Neuro exam: MSE: alert, [...] 5/5 LLE Normal bulk and tone - no satellite with RUE or LUE, finger tapping intact, puff of smoke intact Sensation: intact light touch Coordination: intact finger nose finger, no dysmetria, no tremor Gait: able to perform heel to kay Modified Luis Scale (MRS) 0: No symptoms at all [...] / distal Lcx x2, ramus x1 at [facility]), brain abscess (s/p surgery and ABXtreatment in 2014) who is evaluated today as post-discharge hospital check for recent stuttering R hand numbness / weakness . Stroke work up revealed several punctate infarcts in the left frontoparietal region. 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 Neurological exam today is non-focal and reassuring. He continues with aspirin, Xarelto, and high intensity statin. He checks his blood pressure at home with goal of normotension. He has asymptomatichigh grade R ICA stenosis. Referral was sent to vascular surgery for this. Neurologically stable without repeat events or new symptoms. Denies need for further interventions at this time to support his stroke recovery. Continue to partner with PCP to maximize management of modifiable risk factors for stroke risk reduction. 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 This visit was a total of 70 minutes which was spent on pre-charting, reviewing results of diagnostic studies, as well as patient education and counseling as detailed above. Milagros Parra APRN #[id number] [place] [address] documented in this encounter Plan of Treatment Upcoming Encounters Date Type Department Care Team (Late st Contact Info) Description 09/08/2024 9:40 AM EDT Office Visit Cardiology at [address] [phone] 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
--- OUTSIDE RECORDS SUMMARY | 2024-07-21 19:28 | XMS_ITS | Encounter Summary ---
[place] [address] Care Team Providers Care Retail District Manager Name Role Phone Camacho Barrera DO Primary Care Provider [phone] Reason for Visit * Reason Onset Date Comments Medication Refill 11/13/2021 Encounter Details Date Type Department Care Team (Late st Contact Info) Description 11/13/2021 Refill Cardiology at [address] [phone] Kenny Nelson MD [facility] [place] [address] Medication Refill Social History Tobacco Use Types [...] 9:40 AM EDT Office Visit Cardiology at [address] [place] [phone] Gonzales Torres MD [facility] [place] [address] documented as of this encounter Visit Diagnoses Not on filedocumented in this encounter Care Teams Retail District Manager Relationship Specialty Start Date End Date Camacho Barrera DO [address] [place] [address] PCP - General Family Medicine 07/01/18 documented as of this encounter
--- OUTSIDE RECORDS SUMMARY | 2024-07-21 19:28 | XMS_ITS | Encounter Summary ---
Author [facility] [place] [address] Care Team Providers Care Leverman Name Role Phone Camacho Barrera DO Primary Care Provider [phone] Encounter Details Date Type Department Care Team (Late st Contact Info) Description 05/07/2023 [place] [address] Social History Tobacco Use Types Packs/Day Years [...] 9:40 AM EDT Office Visit Cardiology at [address] [place] [address] Gonzales Torres MD [facility] [place] [address] documented as of this encounter Procedures Procedure Name Priority Date/Time Associated Diagnosis Comments ECG SCAN Routine 05/07/2023 6:32 PM EDT documented in this encounter Results * Scan Doc: ECG (05/07/2023 6:32 PM EDT) Historical Provider MD COULTER MGR SCAN EX T ORDR/RSLT documented in this encounter Visit Diagnoses Not on filedocumented in this encounter Care Teams Leverman Relationship Specialty Start Date End Date Camacho Barrera DO [address] [place] [address] PCP - General Family Medicine 07/01/18 documented as of this encounter
--- OUTSIDE RECORDS SUMMARY | 2024-07-21 19:28 | XMS_ITS | Encounter Summary ---
[place] [address] Care Team Providers Care Regional Sales Representative Name Role Phone Camacho Barrera DO Primary Care Provider [phone] Encounter Details Date Type Department Care Team (Late st Contact Info) Description 07/17/2022 Telephone Cardiology at [address] [address] Miryam-Mikayla Watt, RN Social History Tobacco Use Types Packs/Day [...] encounter Miscellaneous Notes * Telephone Encounter - Mikayla Witt RN - 07/17/2022 12:26 PM EDT TC to pt and advised pt of Dr. Nelson's plan as outlined below. Pt states that he is now taking 100 mg of Metoprolol Succinate once daily and that seems to be working best for him. He is however noticing that he is getting more winded with activity and is wondering if this is because of the ? Flutter . Advised pt that I will be forwarding his message to Dr. Nelson so he is updated and also to the schedulers. Advised pt that if his fatigue and feeling winded worsens or occurs at rest then heneeds to present to the ED at [facility] for evaluation and treatment. Pt agrees with this plan. Pt will await calls from both appt and procedural scheduling per Dr. Nelson's outlined plan below. He has been provided the phone numbers to both scheduling departments as well. I have updated pt med list. * Telephone Encounter - Mikayla Witt RN - 07/17/2022 12:26 PM EDT ----- Message from Kenny Nelson MD sent at 07/15/2022 10:50 PM EDT ----- 1) ??Arrange visit with cardiac electrophysiology colleague (possibly Dr. Torres, who also goes up to [place] each month) re: discuss mapping and ablation (and tentatively schedule procedure) 2) ??Metoprolol succinate increase 75 mg daily (or 100 mg in AM and 50 mg in PM, which is what he used to take) 3) ??Continue rivaroxiaban. 4) ??In the meantime: a) Direct current cardioversion (hold metoprolol AM of cardioversion) b) Echocardiogram and exercise stress echocardiogram when in sinus rhythm c) Zio monitor post-cardioversion ... [place], so scheduling these items in a manner that minimizes trips would be mosthelpful and appreciated. documented in this encounter Plan of Treatment Upcoming Encounters Date Type Department Care Team (Late st Contact Info) Description 09/08/2024 9:40 AM EDT Office Visit Cardiology at [address] [place] [address] Gonzales Torres MD [facility] [place] [place] [address] documented as of this encounter Visit Diagnoses Not on filedocumented in this encounter Care Teams Regional Sales Representative Relationship Specialty Start Date End Date Camacho Barrera DO [address] [place] [address] PCP - General Family Medicine 07/01/18 documented as of this encounter
--- OUTSIDE RECORDS SUMMARY | 2024-07-21 19:28 | XMS_ITS | Encounter Summary ---
Author Organization [facility] [place] [address] Care Team Providers Care Metal Control Worker Name Role Phone Camacho Barrera DO Primary Care Provider [phone] Encounter Details Date Type Department Care Team (Late st Contact Info) Description 05/30/2022 Telephone Cardiology at [address] [phone] Karlene Miller, RN Social History Tobacco Use Types Packs/Day [...] encounter Miscellaneous Notes * Telephone Encounter - Karlene Miller, RN - 05/30/2022 2:25 PM EDT TC to patient in response to the following [facility] message: My pulse rate jumped up to 120 on 05/23. and has been there every day since then. I met with TRACK SERVICE WORKER Claribel Cummings at [facility] [phone]. She left messages with [facility] yesterday. She didan EKG and was quite concerned. I met with Dr Nguyen Cline from [facility] on 05/21 but I had no symptoms at that time. She felt I had a Vasovagal Synope event on 04/20. It is unknown what triggered it. I did havemy second Covid booster 12 hours before the event Patient reported that he was recently seen by Dr. Thomas after a syncopal event where he passed outin the middle of the night after attempting to move his bowels. Patient states that he saw Claribel Cummings at [facility] yesterday for a non related issue, and she was concerned over the his EKG. He states his BP has been 120-130/80-90, but that his HR has been 120s, he feels LH at times, and a bit weaker. TC to Claribel Cummings's office, who reports she has already discussed this patient with Dr. Thomas and he will follow up with her. They will send records of ekg and visit, to have in his chart here. Karlene Miller RN Cardiology Clinic at [facility] [address] documented in this encounter Plan of Treatment Upcoming Encounters Date Type Department Care Team (Late st Contact Info) Description 09/08/2024 9:40 AM EDT Office Visit Cardiology at [address] [phone] Gonzales Torres MD [facility] [place] [address] documented as of this encounter Visit Diagnoses Not on filedocumented in this encounter Care Teams Metal Control Worker Relationship Specialty Start Date End Date Camacho Barrera DO [address] [place] [address] PCP - General Family Medicine 07/01/18 documented as of this encounter
--- OUTSIDE RECORDS SUMMARY | 2024-07-21 19:28 | XMS_ITS | Encounter Summary ---
[place] [address] Care Team Providers Care Adventure Challenge Instructor Name Role Phone Camacho Barrera DO Primary Care Provider [phone] Encounter Details Date Type Department Care Team (Late st Contact Info) Description 08/27/2022 Telephone Cardiology at [address] [phone] Maria E Haque, RN Social History Tobacco Use Types Packs/Day [...] encounter Miscellaneous Notes * Telephone Encounter - Maria E Haque RN - 08/27/2022 8:23 AM EDTSummary: Pre Procedure Call: Cardioversion EP RN CARDIOVERSION/DRUG LOAD CHECKLIST Patient Name: Camacho Flores Patient Providers: Harriett Badillo / Fred Maki Date Scheduled: 08/28/22 Arrival Time/ Case Time: 8:30 am labs / 9:30 am appt / 11:30 am CV Date Patient was Called: 08/27 Procedure: Cardioversion Med Instructions: BB/CCB - hold metoprolol the AM of procedure Anticoag Type: Xarelto (rivaroxaban) - confirmed pt taking appropriately no missed doses within past 21 days DM: No Coming from an assisted living facility?: No Special Considerations/Notes: Clear liquids (water, apple juice, roney vaishali, black coffee/tea) OK up until 2 hrs prior to procedure. NPO after midnight. Understands that school boat driver is needed to transport them upon discharge. documented in this encounter Plan of Treatment Upcoming Encounters Date Type Department Care Team (Late st Contact Info) Description 09/08/2024 9:40 AM EDT Office Visit Cardiology at [address] [phone] Gonzales Torres MD [facility] [place] [address] documented as of this encounter Visit Diagnoses Not on filedocumented in this encounter Care Teams Adventure Challenge Instructor Relationship Specialty Start Date End Date Camacho Barrera DO [address] [place] [address] PCP - General Family Medicine 07/01/18 documented as of this encounter
--- OUTSIDE RECORDS SUMMARY | 2024-07-21 19:28 | XMS_ITS | Encounter Summary ---
Author Organization [facility] [place] [address] Care Team Providers Care Shipping Weigher Name Role Phone Camacho Barrera DO Primary Care Provider [phone] Reason for Visit * Diagnostic Test (Routine) - Closed Specialty Diagnoses / Procedures Referred By Contac t Referred To Contact Cardiology Diagnoses Atrial fibrillation, unspecified type Procedures Ziopatch (EXTERNAL Only) Alan Diaz MD [address] [place] [id number] Referral ID Status Reason Start Date Expiration Date V isits Requested Visits Authorized [id number] Closed Specialty Service Requested 01/20/2023 01/20/2024 1 1 Encounter Details Date Type Department Care Team (Latest Contact Info) Description 01/20/2023 8:00 AM EST Ancillary Procedure Cardiology at [facility] [address] [place] [address] Alan Diaz MD Atrial fibrillation, unspecified type Social History Tobacco Use Types [...] AM EDT Office Visit Cardiology at [address] [place] [address] Gonzales Torres MD [facility] [place] [address] documented as of this encounter Procedures Procedure Name Priority Date/Time Associated Diagnosis Comments ZIOPATCH (EXTERNAL ONLY) Routine 01/20/2023 7:03 AM EST Atrial fibrillation, unspecified type documented in this encounter Results * Ziopatch (EXTERNAL Only) (01/20/2023 7:03 AM EST) Anatomical Region Laterality Modality Other Narrative 02/11/2023 4:17 PM EDT Images from the original result were not included. [facility] ? 'Zio Patch' Ambulatory Cardiac Event Monitor Report Duration of recordin days, 4 hours (started 01/18/2023) Indication: atrial fibrillation Summary Data Predominant rhythm: Afib Maximum AF rate: 161 bpm Minimum AF rate: 34 bpm Average heart rate: 66 bpm Atrial fibrillation: ? Atrial Fibrillation occurred continuously (100% burden), ranging from 34-161 bpm (avg of 66 bpm). Pauses: ? 9 Pauses occurred, the longest lasting 3.6 secs (17 bpm). Ectopic beats Isolated VEs were occasional (1.1%, [address]), VE Couplets were rare (<1.0%, 77), and VE Triplets were rare (<1.0%, 8). Ventricular Bigeminy was present. Abnormal Tachycardias 6 Ventricular Tachycardia runs occurred, the run with the fastest interval lasting 5 beats with a max rate of 200 bpm, the longest lasting 8.8 secs with an avg rate of 144 bpm. Triggered and Patient Diary Events There were 0 triggered and 0 patient diary events: Conclusion(s): ?? The patient was in atrial fibrillation 100% of the recorded time. ?? The AF ranges from 34-161 bpm with rare pauses (long RR interval, AF with slow VR). ?? There were a total of 9 pauses (>3 sec), the longest was 3.6 sec on 01/27/2023 at 9:51 am. Occasional (1.1%) isolated PVCs, rare couplets/triplets. ??6 runs of possible NSVT, the longest lasting 21 beats. ??It is possible that this is AF with aberrancy (sample tracing above). ?? No symptoms reported. Conclusion: AF with RVR (max rate 161 bpm) as well as AF with slow VR - multiple pauses (longest 3.6 sec). ??However, no symptoms reported. Other details as above. Alan Diaz MD [facility] documented in this encounter Visit Diagnoses Diagnosis Atrial fibrillation, unspecified type documented in this encounter Care Teams Shipping Weigher Relationship Specialty Start Date End Date Camacho Barrera DO [address] [place] [address] PCP - General Family Medicine 07/01/18 documented as of this encounter
--- OUTSIDE RECORDS SUMMARY | 2024-07-21 19:28 | XMS_ITS | Encounter Summary ---
[place] [address] Care Team Providers Care Moccasin Sewer Name Role Phone Camacho Barrera DO Primary Care Provider [phone] Encounter Details Date Type Department Care Team (Late st Contact Info) Description 07/01/2022 8:20 AM EDT Office Visit Cardiology at [address] [address] Kenny Nelson MD [facility] [place] [address] Atrial fibrillation, unspecified type Social History Tobacco [...] Sign Reading Time Taken Comments Blood Pressure 122/81 07/01/2022 7:48 AM EDT Pulse 52 07/01/2022 7:48 AM EDT Temperature - - Respiratory Rate - - Oxygen Saturation 100% 07/01/2022 7:48 AM EDT Inhaled Oxygen Concentration - - Weight 96.9 kg (213 lb 9.6 oz) 07/01/2022 7:48 A M EDT Height 188 cm (6' 2) 07/01/2022 7:48 AM EDT Rep orted Body Mass Index 27.42 07/01/2022 7:48 AM EDT documented in this encounter Progress Notes * Kenny Nelson MD - 07/01/2022 8:20 AM EDT Cardiac Electrophysiology Clinic?? [place] Office?? July 01, 2022 (last visit October 09, 2020) ?? Automobile Body Worker:??Ant Suarez MD -> consider Dr. Almodovar closer to home? Primary Care Physician:??Camacho Barrera,??DO? Reason for Visit: Atrial fibrillation, ventricular ectopy ?? Backgound: ??Mark??is a 76 year old gentleman who previously suffered??with persistent??atrial fibrillation (AF) - he underwent a mapping and ablation procedure in October 2018 (with the observations and accomplishments noted below in the problem list). Amiodarone was discontinued after his procedure in 2017, and otherwise he was maintained on rivaroxiban anticoagulation. ?? When he last was seen in this clinic, he noted that since ~May 2020, he had experienced occasionalsporadic instances of mild lightheadedness lasting for up to a few minutes (with no palpitations, presyncope, syncope, or chest pain); these episodes occur at no particular time of the day. He had his pulse checked during one such instance, and it was ~50/minute. Recent History: Dr. Barrera's clinic note from May 29 was reviewed. The patient was being seen for tinea capitis, and was found to have conducted tachycardia at a rate of 121/minute, though otherwise he was feeling fine at the time. An electrocardiogram was obtained which showed atrial tachycardia/flutter conducted 2:1. In addition, he also had reported a recent syncopal episode that was attributed to being a vagal episode. Arrangments were made for him to be seen here. 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 In the process of this he said he passed out. An ambulance subsequently brought him to the local emergency room for evaluation, and in the processof this transfer he said he also passed out a couple times. He understood that he had a pulse in the 40s/minute as his rhythm was monitored. Once at the emergency room, he improved, and by that afternoon he was discharged home feeling better. He said vasavagal syncope was mentioned to him at some point as a diagnosis. It also was around this time that his back went out, and he said he had a herniated disk, for which he was prescribed bed rest (which apparently did the trick). He also reported that subsequently on May 23, he felt palpitations at a rate of ~130/minute and experienced some lightheadedness with that. Subsequently he went on to note his heart rate varied more - he found rates as low as 40/minute and as high as 157/minute, but generally his heart rate was ~110/minute. Symptom-felxi, he had some exertinal shortness of breath and non-anginal fullness in hischest - he thought that it might be a recurrence of his atrial fibrillation. He saw Dr. Barrera a few days later, who noted an elevated heart rate ~120/minut. An electrocardiogram as obtained to confirm, but this apparently did not reveal atrial fibrillation. Dr. Batres invitedhim to go to the local emergency room, but Mr. Flores apparently elected to wait it out while efforts were put in place to have him seen here. Otherwise, apart from his exertoinal dyspnea with his faster heart rate, Mr. Flores said he is doingOK otherwise. He has not had other presyncope or syncope more recently. There is no recent Zio monitor (the most recent one was obtained in May 2021). ?? Past Medical History: ??1) ??Atrial fibrillation (see above) > Dofetilide initiation, direct current cardioversion (July 2018) > Map and ablate (October 2018): :??Acute electrical isolation of the??right pulmonary vein antrum, and attempted acute electrical isolation of the remainder of the??posterior left atrium (instead resulting in marked delay of activation within the leftward posterior left atrium).??Acute electrical isolation of the entire region was not achieved (despite apparent conduction block along the perimeter of the posterior left atrium) due to apparent epicardial connections distributed within the posterior left atrium, some of which were along the posterior edge of the right lorna.??The intended result was for acute electrical isolation of the entire posterior left atrium. :??Inferior cavotricuspid isthmus dependent atrial flutter was the presenting rhythm; this was ablated, with bidirectional conduction block across the inferior cavotricuspid isthmus subsequently demonstrated. :??Preserved atrioventricular conduction, with dual atrioventricular node physiology manifest (no atrial echo beats elicited with limited testing). :??No finding of an accessory pathway. :??The P wave duration post-cardioversion and pre-ablation was prolonged at??>190??ms (the sinusrhythm CT interval); the post-ablation sinus rhythm P wave duration was??>190??ms (the sinus rhythm CT interval). > Off amiodarone ??2) ??Coronary artery disease - stents (2010) >?LAD stents x 2 >?LCx stents x 2 ??3) ??Hypertension ??4) ??Dyslipidemia 5) Ventricular ectopy > Zio (December 2018): 8.6% burden, 2 morphologies prevalent > Zio (August 2020): 11.8% burden, 2 morphologies prevalent 6) History of brain abscess ?? Allergies & Sensitivities:??Bee pollen; Penicillins; Shellfish containing products; Aspirin; Ceftriaxone; Keppra [levetiracetam]; and Simvastatin? Medications:??As per updated eDH list (includes lisinopril 10 mg daily, metoprolol succinate increased from 50 mg daily to 50 mg twice daily, rivaroxiban 20 mg daily, atorvastatin 20 mg daily) ?? 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 Family History: Brother (Alzheimer's disease) ?? Review of Systems: No history of diabetes, TIA, stroke, heart failure; no recent complaint of exertional angina. Remainder of??limited??review of systems as noted in the history. ?? Physical Examination (cursory): Vital Signs: ?Blood pressure: 122/81??sitting arm (cuff). ?Pulse: 52/minute, regular ?Ventilations: 16/minute, unlabored ?Weight: 96.9??kg dressed ?Body mass index: 27.42??kg/m2? General: In no acute distress. Articulate and attentive. Skin: Warm and dry, normal turgor. HEENT: Normocephalic, atraumatic; anicteric sclerae. Neck: No elevated jugulovenous distention upright. Chest: Symmetric chest wall expansion with inspiration. Lungs:??Good air movement. Heart: Tachycardiac somewhat irregular rate. Abdomen: Nondistended. Extremities: Pulses present. Neurological: Grossly intact. ?? Tests: Restalo Monitor (June 20, 2021; analyzed 11 days 2 hours): > The overall sinus rhythm rate range was 42-140/minute, and averaged 63/minute. The predominantunderlying rhythm throughout the monitoring period was conducted sinus rhythm. The slowest heart rates tended to occur overnight, when also the least amount of heart rate variation tended to be manifest. > No pauses >3 seconds were seen, and there was no high grade atrioventricular conduction block reported or observed at normal sinus rates. > There was a 6.3% burden of isolated ectopic supraventricular beats detected, and rare supraventricular couplets and triplets were detected as well. There were 53 supraventricular runs detected (the run with the fastest interval lasted 6 beats with a maximum rate of 167/minute, and the longest lasted 20 beats at a mean rate of 107/minute). > There was a <1.0% burden of isolated ectopic ventricular beats detected, and rare ventricular couplets and triplets were detected as well. There were 2 possible ventricular runs detected (therun with the fastest interval lasted 4 beats with a maximum rate of 156/minute, and the longest runlasted 4 beats at a mean rate of 129/minute). Ventricular bigeminy lasting for up to 23.7 seconds wa s detected, and ventricular trigeminy lasting for up to 8.6 seconds also was detected. > The patient wrote in 1 timed diary entry (for dyspena), and there were 4 patient-triggered events; these corresponded to normal sinus rhythm with supraventricular or ventricular ectopy. Conclusion: This monitor study was remarkable for sinus rhythm. A 6.3% burden of supraventricular ectopy were detected. Restalo Monitor (August 27, 2020; analyzed 7 days 6 hours): > The overall sinus rhythm rate range was 46-146/minute, and averaged 71/minute. The predominantunderlying rhythm throughout the monitoring period was conducted sinus rhythm. The slowest heart rates tended to occur overnight, when also the least amount of heart rate variation tended to be manifest. > No pauses >3 seconds were seen, and there was no high grade atrioventricular conduction block reported or observed at normal sinus rates. > There was a <1.0% burden of isolated ectopic supraventricular beats detected, and rare supraventricular couplets and triplets were detected as well. There also was a 1% burden of atrial tachycardia/flutter with a rate range 92- 174/minute (mean rate 128/minute) during 2 of the days spanned by the overall monitoring period. The longest episode of atrial tachycardia/flutter persisted ~29.8 minutes, and there were 6 episodes that were of at least 6 minutes duration (out of 20 total detections >0.5 minutes duration). > There was a 11.8% burden of isolated ectopic ventricular beats detected, and rare ventricular couplets and triplets were detected as well; this ectopy was most prevalent during the daytime hours. There were 2 ventricular runs detected (the run with the fastest interval lasted 4 beats with a maximum rate of 162/minute, and the longest run lasted 4 beats at a mean rate of 136/minute). Ventricular bigeminy lasting for up to 155 seconds was detected, and ventricular trigeminy lasting for up to89 seconds also was detected. The ventricular ectopy predominantly was of 2 distinct morphologies. > The patient wrote in no timed diary entries, but there were 2 patient- triggered events; these corresponded to sinus rhythm 83/minute with ventricular ectopy (both including bigeminy). Conclusion: This monitor study was remarkable for sinus rhythm. A 1% burden of paroxysmal atrial tachycardia/flutter and a ~12% burden of ventricular ectopy were detected. Restalo Monitor??(December 21, 2018; analyzed 13 days 21??hours): >?The overall sinus rhythm rate range was 44-137/minute, and averaged 62/minute. The predominant underlying rhythm throughout the monitoring period was conducted sinus rhythm. The slowest heartrates tended to occur overnight, and overall heart rate variation from moment to moment was limited.?? >?No pauses >3 seconds were seen, and there was no high grade atrioventricular conduction block reported or observed at normal sinus rates.?? >?There was a <1.0% burden of isolated ectopic supraventricular beats detected, and rare couplets and triplets were detected as well. There were 44 supraventricular runs detected (the run with the fastest interval lasted 6 beats with a maximum rate of 160/minute, and the longest lasted 20.1 seconds at a mean rate of 115/minute).?? >?There was a 8.6% burden of isolated ectopic ventricular beats detected, and rare couplets and triplets were detected as well. There were 3 ventricular runs detected (the run with the fastest interval lasted 4 beats with a maximum rate of 255/minute, and the longest lasted 5 beats seconds jayme mean rate of 97/minute). Ventricular bigeminy lasting for up to 27.7 seconds was detected, and ventricular trigeminy lasting for up to 17.1 seconds also was detected. The ventricular ectopy was unifocal, with 2 predominant morphologies manifest (somewhat more prevalent during daytime hours). >?The patient wrote in no timed diary entries for symptoms. There were 2 patient-triggered events that corresponded to sinus rhythm with ventricular ectopy +/- supraventricular ectopy. ?Conclusion: This monitor study was remarkable for sinus rhythm. Occasional nonsustained supraventricular tachycardia runs (without any atrial flutter/fibrillation) and an 8.6% burden of ventricular ectopy were detected. Electrocardiogram??(May 29, 2022):??Atrial flutter conducted 2:1 at a rate of 121/minute, narrow QRS complex. Electrocardiogram??(October 09, 2020):??Normal sinus rhythm with supraventricular and ventricular ectopy. Electrocardiogram??(January 27, 2019):??Sinus rhythm, ectopic ventricular beat. ?? Assessment:??Mr. Flores did reasonably well subsequent to his ablation procedure in 2017, at least up until late spring, as [...] it has impacted hi exertional tolerance and stamina. I discussed the timing of this, and that in the interim it might be worth undergoing a direct current cardioversion in the interim. He had atypical chest discomfort back in March, and he also should have an echocardiogram, so also we discussed obtaining a stress echocardiogram after he is back in normal rhythm following cardioversion. If need be, he can be maintained on an antiarrhythmic while awaiting mapping and ablation. In addition, though he apparently was advide of vasovagal syncope last March, it also would be worth reassing sinusnode function and conduction during this procedure. I answered all of his questions, after discussing risks and limitations to this and other treatmentapproaches. Recommendations: 1) Arrange visit with cardiac electrophysiology colleague (possibly Dr. Torres, who also goes up [facility] each month) re: discuss mapping and ablation (and tentatively schedule procedure) 2) Metoprolol succinate increase 75 mg daily (or 100 mg in AM and 50 mg in PM, which is what he used to take) 3) Continue rivaroxiaban. 4) In the meantime: a) Direct current cardioversion (hold metoprolol AM of cardioversion) b) Echocardiogram and exercise stress echocardiogram when in sinus rhythm c) Zio monitor post-cardioversion ... [place] in a manner that minimizes trips would be mosthelpful and appreciated. ____ documented in this encounter Plan of Treatment Upcoming Encounters Date Type Department Care Team (Late st Contact Info) Description 09/08/2024 9:40 AM EDT Office Visit Cardiology at [address] [phone] Gonzales Torres MD [facility] [address] documented as of this encounter Visit Diagnoses Diagnosis Atrial fibrillation, unspecified type documented in this encounter Care Teams Moccasin Sewer Relationship Specialty Start Date End Date Camacho Barrera DO [address] [place] [address] PCP - General Family Medicine 07/01/18 documented as of this encounter
--- OUTSIDE RECORDS SUMMARY | 2024-07-21 19:28 | XMS_ITS | Encounter Summary ---
Author Organization [facility] [place] [address] Care Team Providers Care Tile Mechanic Helper Name Role Phone Camacho Barrera DO Primary Care Provider [phone] Reason for Visit * Auth/Cert Specialty Diagnoses / Procedures Referred By Contac t Referred To Contact Diagnoses Other persistent atrial fibrillation atrial fibrillation Procedures PRO CARDIOVERSION ELECTIVE ARRHYTHMIA EXTERNAL CARDIOVERSION-ELECTIVE (WRVU 2.25) Fred Maki MD [facility] [place] [address] [facility] Referral ID Status Reason Start Date Expiration Date Visits Re quested Visits Authorized [id number] 1 1 Encounter Details Date Type Department Care Team (Late st Contact Info) Description 08/28/2022 9:30 AM EDT Office Visit Cardiology at [address] [phone] Harriett Badillo APRN [facility] [place] [address] Persistent atrial fibrillation Social History Tobacco Use [...] Sign Reading Time Taken Comments Blood Pressure 130/88 08/28/2022 9:06 AM EDT Pulse 115 08/28/2022 9:06 AM EDT ENTERPRISE APPLICATION DEVELOPER notified Temperature - - Respiratory Rate - - Oxygen Saturation 100% 08/28/2022 9:0 6 AM EDT Inhaled Oxygen Concentration - - Weight 97.1 kg (214 lb 1.6 oz) 08/28/2022 9:06 AM EDT Height 188 cm (6' 2) 08/28/2022 9:06 AM EDT patient reported Body Mass Index 27.49 08/28/2022 9:06 AM EDT documented in this encounter Progress Notes * Harriett Badillo, ENTERPRISE APPLICATION DEVELOPER - 08/28/2022 9:30 AM EDT Day of Cardioversion History and Physical Subjective: Patient ID: Camacho Flores is a 76 y.o. male. CC: Presents for pre-cardioversion evaluation, DCCV scheduled for [address] Maki HPI: 76 y.o. male with past medical history of persistent atrial fibrillation s/p PVI and CTI ablation 10/2018, unsuccessful posterior wall isolation, CAD s/p PCI, HTN, ventricular ectopy on Zio, vasovagal syncope followed by Kenny Nelson MD who presents today for elective cardioversion. He is here with his , Kisha, PCP: Camacho Barrera DO EP: Kenny Nelson MD, with plan for Dr. Torres to follow in [place] to discuss ablation. He did well after his ablation [address] Nelson until March 2022, after his second Covid boosterhe developed diarrhea and dehydration, had vasovagal syncope, and then atrial fibrillation started in May 2022. The metoprolol was increased, he met with Dr. Nelson in July, was noted to be in atrial flutter, and was referred for cardioversion today. He has symptoms of exertional fatigue, increased heart rates, uses deep breathing to help mitigate.He thought he was here to have an ablation today. Anticoagulation: Xarelto, takes nightly with supper, last dose last night, no missed doses in over 3 months Rate control: metoprolol succinate 100 mg daily, last dose yesterday 08/27 morning Previous DCCV: July 2018- lasted for 1 week. Previous AAD: previous dofetilide (QTc prolongation after 3rd dose July 2018), previous amiodarone [id number]. Previous ablation: Oct 2018 Dr. Nelson PVI, PWI, CTI Sleep apnea: none Diabetes: none Weight: BMI 27 Alcohol: 2 shots per day There have not been any medication changes since the last visit. This morning, all medications weretaken except metoprolol succinate. he has been NPO since midnight. Patient Active Problem List Diagnosis ??? Status post ablation of atrial fibrillation ??? ASCVD (arteriosclerotic cardiovascular disease) Overview Note: PCI in 2005 at [facility]: stents to LAD x2, LCx x2, ramus ??? Atrial fibrillation Overview Note: Diagnosed 2017, on rivaroxaban, s/p DCCV ??? Hypertension ??? HLD (hyperlipidemia) ??? Chest pain ??? Brain abscess Interval ROS: Patient denies cough, fever, PND, orthopnea, activity intolerance, leg swelling, change in bowel habit, presyncope or syncope. Medications: Current Outpatient Medications Medication Sig Dispense Refill ??? lisinopriL (Zestril) 20 mg Tablet Take 20 mg by mouth daily. ??? timoloL (Timoptic) 0.5 % Drops 2 times daily. ??? metoprolol succinate XL (Toprol-XL) 100 mg Tablet Sustained Release 24 hr Take 100 mg by mouth daily. ??? rivaroxaban (Xarelto) 20 mg Tablet Take 1 tablet by mouth daily. 90 tablet 1 ??? nitroGLYcerin (NITROSTAT) 0.4 mg Tablet, Sublingual Place 1 tablet under the tongue every 5 minutes as needed for Chest pain. 90 tablet 12 ??? atorvastatin (LIPITOR) 10 mg Tablet Take 10 mg by mouth daily. Allergies Allergies Allergen Reactions ??? Bee Pollen Anaphylaxis Bee Stings Use to carry Epi Pen, ??? Penicillins Angioedema States as a child, had facial, lip swelling. ??? Shellfish Containing Products Nausea And Vomiting SHRIMP only. Blotches, swelling, Shrimp ??? Aspirin Other (See Comments) Nosebleeds after 2 weeks of therapy ??? Ceftriaxone Other (See Comments) leukopenia ??? Keppra [Levetiracetam] Other (See Comments) leukopenia ??? Simvastatin Other (See Comments) Myalgia Objective: Vitals: Vitals: 08/28/22 0906 BP: 130/88 BP Location (NBP): Left arm Patient Position: Sitting BP Cuff Sizes: Adult (25-34 cm) Pulse: (!) 115 SpO2: 100% Weight: 97.1 kg (214 lb 1.6 oz) Height: 188 cm (6' 2) Physical Exam: General- No acute distress, sitting comfortably in exam room chair Skin- Warm and dry Cardiovascular- S1/S2 regular rate and rhythm. No murmur, rub or gallop Lungs- Clear to auscultation bilaterally Extremities- Pulses equal bilaterally. No edema noted Neuro- A&Ox3 ECG in office today shows atrial flutter with 2:1 conduction, QRS 82ms, QT =326ms, QTc 449 ms. Echocardiogram: ROLAND in 2018 normal LVEF 60% Lab data: Recent Labs 08/28/22 0823 NA 141 K 4.4 CL 103 CO2 27 BUN 15 CREATININE 1.00 GLUCOSE 124 Magnesium 0.69 - 1.07 mmol/L 0.87 Assessment and Plan: 76 y.o. with medical history significant for persistent atrial fibrillation s/p PVI and CTI ablation 10/2018, unsuccessful posterior wall isolation, CAD s/p PCI, HTN, ventricular ectopy on Zio, vasovagal syncope followed by Kenny Nelson MD who presents today for elective cardioversion. Persistent atrial fibrillation and atrial tachycardia/flutter Possible electrically connected left atrial wall s/p unsuccessful posterior wall isolation, or pulmonary vein reconnection, or other macroreentrant perivalvular circuit, per Dr. Nelson. Appears to be typical atrial flutter noted on ECG today. [id number] Score is 4 (HTN-1, Age-2, Vasc-1), with 4.8% risk of stroke or clot in 1 year. Takes Xarelto for anticoagulation. No contraindication to planned cardioversion today. Plan: 1. The cardioversion procedure was discussed and questions answered. We discussed possible risks including but not limited to: skin irritation or coleman, bradycardia or rhythm abnormalities (arrhythmia), stroke(CVA), aspiration, cardiac arrest. Written consent was obtained and given to Same Day staff for chart placement. 2. Code Status: FULL CODE 3. Patient to proceed to Same Day Program 4. Follow up with Dr. Torres Sep 11 in [place] will be dependent on the results of the cardioversion. I appreciate the opportunity to be involved with Tomas's care. Please do not hesitate to contact EP with any further questions (pager [phone]). Harriett Badillo APRN Pager: [phone] documented in this encounter Plan of Treatment Upcoming Encounters Date Type Department Care Team (Late st Contact Info) Description 09/08/2024 9:40 AM EDT Office Visit Cardiology at [address] [place] [address] Gonzales Torres MD [facility] [place] [address] documented as of this encounter Procedures Procedure Name Priority Date/Time Associated Diagnosis Comments EKG 12-LEAD Routine 08/28/2022 9:14 AM EDT Persistent atrial fibrillation documented in this encounter Results * EKG 12 Lead (08/28/2022 9:14 AM EDT) Ventricular rate 114 BPM MUSE SYSTEM Atrial Rate 228 BPM MUSE SYSTEM QRS Duration 82 ms MUSE SYSTEM Q-T Interval 326 ms MUSE SYSTEM QTC Calculated (Bezet) 449 ms MUSE SYSTEM Calculated P [place] 111 degrees MUSE SYSTEM Calculated R [place] 53 degrees MUSE SYSTEM Calculated T [place] -15 degrees MUSE SYSTEM INTERPRETATION Atrial flutter with 2:1 A-V conduction Nonspecific T wave abnormality Abnormal ECG When compared with ECG of 01-JUL-2022 08:48, No significant change was found Confirmed by MD Mckinney Danette ([id number]) on 08/28/2022 3:47:35 PM MUSE SYSTEM 08/28/2022 9:14 AM EDT 08/28/2022 3:47 PM EDT Harriett Badillo APRN ECG ORDERABLES MUSE SYSTEM documented in this encounter Visit Diagnoses Diagnosis Persistent atrial fibrillation Atrial fibrillation documented in this encounter Care Teams Tile Mechanic Helper Relationship Specialty Start Date End Date Camacho Barrera DO [address] [place] [address] PCP - General Family Medicine 07/01/18 documented as of this encounter
--- OUTSIDE RECORDS SUMMARY | 2024-07-21 19:28 | XMS_ITS | Encounter Summary ---
[place] [address] Care Team Providers Care Sealer Dry Cell Name Role Phone Camacho Barrera DO Primary Care Provider [phone] Encounter Details Date Type Department Care Team (Latest Contact Info) Description 10/18/2022 10:00 AM EST TH Visit (TeleHealth) Cardiology at [address] [phone] Gonzales Torres MD [facility] [place] [address] S/P ablation of atrial fibrillation Social History Tobacco Use Types [...] as of this encounter Progress Notes * Gonzales Torres MD - 10/18/2022 10:00 AM EST CARDIAC ELECTROPHYSIOLOGY TELEHEALTH VISIT NOTE Camacho Flores 10/18/22 The patient consented to this being a virtual visit. HPI: Camacho Flores is a 76 y.o. year old male with a PMH of paroxysmal atrial fibrillation, with an extensive history of ablation. This visit was supposed to be an in-person visit at the [facility], but he accidentally ended up in [place], so was converted to a telephone visit. From his last visit '...a 76 y.o. male following up/being seen in clinic for paroxysmal atrial fibrillation. He has a history of atrial fibrillation ablation in October of 2018, when an incomplete posterior wall isolation was performed together with cavotricuspid isthmus ablation. He had also had a syncopal episode in May, which was attributed to vagal syncope. From his last clinic note from Dr Nelson in July of this year '...Mr. Flores??did??reasonably well subsequent to his ablation procedure??in 2018, at least up until late spring, as described above. It appears that he has been in rapidly atrial tachycardia/flutter +/- fibrillation since March or May. His electrocardiogram today reveals an atrial tachycardia/flutter with variable conduction at a man rate of 109/minute. ?? The possible reasons for this were discussed with him, including the possible role of the??connected??posterior left atrial wall (unsuccessfully targeted for electrical isolation in 2018)??or perhapsconduction into one of more of the pulmonary veins (acutely isolated in 2018), or otherwise due to some other macroreentrant perivalvular circuit. He is inteersted in having this mapped and ablated, given that it has impacted hi exertional tolerance and stamina...'.. He recently had an episode of atrial fibrillation with rapid rates, for which he called into the [place] clinic. He ultimately had reasonable ventricular rate control and spontaneously converted soon after a Flu shot. He has been in sinus rhythm since. Interestingly, he attributed an episode of atrial fibrillation to his 3rd Moderna COVID booster. Currently he feels well. Patient Active Problem List Diagnosis ??? Premature ventricular beats Zio (December 2018): 8.6% burden, 2 morphologies prevalent Zio (August 2020):??11.8% burden, 2 morphologies prevalent ??? Status post ablation of atrial fibrillation ??? ASCVD (arteriosclerotic cardiovascular disease) PCI in 2005 at [facility]: stents to LAD x2, LCx x2, ramus ??? Atrial fibrillation Diagnosed 2018, on rivaroxaban, s/p DCCV ??? Hypertension ??? HLD (hyperlipidemia) ??? Chest pain ??? Brain abscess Brief ROS: Activity level: Moderate No new orthopnea, PND, LE edema. No lightheadedness, dizziness, syncope/pre- syncope. No new CP. Medications: Current Outpatient Medications Medication Sig Dispense Refill ??? metoprolol succinate XL (Toprol-XL) 100 mg Tablet Sustained Release 24 hr Take 50 mg by mouth daily. ??? lisinopriL (Zestril) 20 mg Tablet Take [...] Tablet Take 10 mg by mouth daily. Medications were reviewed with patient. Objective Data: VS at home: P 50-55 bpm Labs: Lab Results Component Value Date WBC 13.4 (H) 10/20/2018 HGB 14.7 10/20/2018 HCT 37.0 (L) 10/20/2018 MCV 95.1 (H) 10/20/2018 PLATELET 245 10/20/2018 No results for input(s): NA, K, CL, CO2, BUN, CREATININE, GLUCOSE in the last 168 hours. Lab Results Component Value Date INR 1.1 10/20/2018 Assessment: This 76 y.o. man is evaluated via a TH encounter, initially this visit was intended to be in [facility] in [place], but the patient ended up at [facility]. We conducted therest of the visit via telephone, he has been doing reasonably well since he spontaneously convertedfrom atrial fibrillation to sinus rhythm. We discussed the findings on his prior atrial fibrillation ablation procedures, the role of repeat ablation (request), and optimizing medical therapy. We have agreed that for now we will try and uptitrate his metoprolol therapy, he continued to watchfor symptoms, will follow-up in a few months time. Options for antiarrhythmic therapy is to remain,I did discuss that it tends to be a little of diminishing returns, with repeat atrial fibrillation ablation procedures, and the suppression/medication may need to go here. He is agreeable to this plan. Plan 1. Uptitrate metoprolol 2. Continue with vigilance for symptoms of atrial fibrillation 3. Follow-up in about 2 months time F/U 2 months GONZALES TORRES MD 10 minutes of this 15 minute encounter were spent preparing to see the patient (e.g. review of tests, updating the medical record), obtaining and/or reviewing separately obtained history, counseling and educating the patient, ordering medications, tests, or procedures, documenting clinical information in the electronic medical record, independently interpreting results documented in this encounter Plan of Treatment Upcoming Encounters Date Type Department Care Team (Late st Contact Info) Description 09/08/2024 9:40 AM EDT Office Visit Cardiology [address] [address] Gonzales Torres MD [facility] [place] [address] documented as of this encounter Visit Diagnoses Diagnosis S/P ablation of atrial fibrillation Other postprocedural status documented in this encounter Care Teams Sealer Dry Cell Relationship Specialty Start Date End Date Camacho Barrera DO [address] [place] [phone] PCP - General Family Medicine 07/01/18 documented as of this encounter
--- OUTSIDE RECORDS SUMMARY | 2024-07-21 19:28 | XMS_ITS | Encounter Summary ---
Author Organization [facility] [place] [address] Care Team Providers Care Nurse Administrator Name Role Phone Camacho Barrera DO Primary Care Provider [phone] Encounter Details Date Type Department Care Team (Late st Contact Info) Description 04/22/2022 Ancillary Procedure [place] [phone] Camacho Barrera DO [address] [place], [place] [id number] Social History Tobacco Use Types Packs/Day Years [...] AM EDT Office Visit Cardiology at [address] [place] [address] Gonzales Torres MD [facility] [place] [address] documented as of this encounter Procedures Procedure Name Priority Date/Time Associated Diagnosis Comments FILM LIBRARY STORAGE ONLY MR SPINE Routine 04/22/2022 12:00 AM EDT documented in this encounter Results * Film Library- Storage Only MR Spine (04/22/2022 12:00 AM EDT) Narrative [facility] - 05/10/2022 4:10 PM EDT This exam is auto-finalizing. It's purpose is for storage only. Camacho Barrera DO [facility] [place]M LIBRARY ORD ERABLES Performing Organization Address City/State/[facility] Co de Phone Number [place], [place] documented in this encounter Visit Diagnoses Not on filedocumented in this encounter Care Teams Nurse Administrator Relationship Specialty Start Date End Date Camacho Barrera DO [address] [facility] [place] [address] PCP - General Family Medicine 07/01/18 documented as of this encounter
--- OUTSIDE RECORDS SUMMARY | 2024-07-21 19:28 | XMS_ITS | Encounter Summary ---
Author Organization Formerly [facility] [place] [address] Care Team Providers Care Patient Case Coordinator Name Role Phone Camacho Barrera DO Primary Care Provider Reason for Visit * Reason Comments Atrial Fibrillation Encounter Details Date Type Department Care Team (Late st Contact Info) Description 09/11/2022 9:00 AM EDT Office Visit Cardiology at [address] [address] Gonzales Torres MD [facility] [place] [address] Premature ventricular beats Social History Tobacco Use Types Packs/Day Years [...] Sign Reading Time Taken Comments Blood Pressure 140/71 09/11/2022 9:04 AM EDT Pulse 53 09/11/2022 9:04 AM EDT per e kg Temperature - - Respiratory Rate - - Oxygen Saturation - - Inhaled Oxygen Concentration - - Weight 98.9 kg (218 lb) 09/11/2022 9:04 AM EDT Height 188 cm (6' 2) 09/11/2022 9:04 AM EDT Body Mass Index 27.99 09/11/2022 9:04 AM EDT documented in this encounter Patient Instructions * Patient Instructions* Gonzales Torres MD - 09/11/2022 9:00 AM EDT Images from the original note were not included. It was nice to see you in the Cardiac Electrophysiology Clinic today. We discussed the atrial fibrillation, the role of medicines, rhythm control and repeat ablation You should continue with your medicines as before I made no changes to your medicines today I made the following changes I will arrange for a routine follow up in about 6 months time For any questions, call my office: [phone] (and then 'option 2') Gonzales ESCALERA.ChB, Clinical Cardiac Electrophysiology, [facility], For more information about heart rhythm issues, go to [email or web address] - the Heart Rhythm Society's patient resource center [facility] To access your health care information, go to the web at: [email or web address] (you will need to register) Heart-Healthy Lifestyle You can help keep your heart and blood vessels healthy by taking steps toward a healthier lifestyle. These healthy habits include not smoking, eating right, exercising regularly, staying at a healthyweight, and getting the screening tests you need. A heart-healthy lifestyle is important for everyone, not just for people with existing health problems. It can help you keep your heart and blood vessels healthy. If you already have heart or blood vessel problems, such as high cholesterol or high blood pressure, a healthy lifestyle can help you lower your risk of a heart attack and stroke. If you have children, you can be their healthy role model. If your habits are healthy, your children are more likely to build those habits in their own lives. Don't smoke Everyone who uses tobacco would benefit from quitting. When you quit smoking--no matter how old youare--you will decrease your risk of heart attack, stroke, and many other health problems. Where can you learn more? Visit our health information library at [email or web address] You can also view health information on [employer], your personal patient account. Log in or sign uptoday. documented in this encounter Progress Notes * Gonzales Torres MD - 09/11/2022 9:00 AM EDT Images from the original note were not included. Clinical Cardiac Electrophysiology Consult Patient ID Camacho Flores [id number] Camacho Flores is referred to the EP clinic by Dr Nelson. Chief Complaint Paroxysmal atrial fibrillation s/p ablation for AF in 2018. History This is a 76 y.o. male following up/being seen in [...] wall (unsuccessfully targeted for electrical isolation in 2017) or perhaps conduction into one of more of the pulmonary veins (acutely isolated in 2018), or otherwise due to some other macroreentrant perivalvular circuit. He is inteersted in having this mapped and ablated, given that it has impacted hi exertional tolerance and stamina...' He believes that he had an episode of lightheadednes, dizziness after a second COViD booster (3rd Moderna) in March. Three days later, his heart rate became irregular. In the past, his symptoms have predominantly been lightheadedness, dizziness. He was at the bathroom, was about to vomit and then lost consciousness. Cardioversion was performed 08/28, with a single shock into sinus rhythm (3 second pause) He is not on AAD's, is anticoagulated with Xarelto. He has previously been on dofetilide (in 2017),but this was discontinued secondary to QTc prolongation. After his ablation, he was placed on amiodarone for several weeks. Post cardioversion he had normal intervals - a sinus rate of 72, with QTc ~ 477 ms. No lightheadedness, dizziness or syncope. No chest pain. No heart failure symptoms (no edema, PND, orthopnea) Weight stable. No nuisance bleeding. He does not really feel the premature ventricular beats. Problem List Patient Active Problem List Diagnosis [...] Systems Review of Systems Constitutional: Positive for weight loss (10 lbs). Meds Current Outpatient Medications Medication Sig Dispense [...] Socioeconomic History ??? Marital status: Spouse name: None ??? Number of children: None ??? Years of education: None ??? Highest education level: None Occupational History ??? None Tobacco Use ??? Smoking status: Never Smoker ??? Smokeless tobacco: Never Used Vaping Use ??? Vaping Use: Never used Substance and Sexual Activity ??? Alcohol use: Yes Alcohol/week: 14.0 standard drinks Types: 14 Shots of liquor per week Comment: 2-3 drinks/night ??? Drug use: No ??? Sexual activity: None Other Topics Concern ??? 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 Social Determinants of Health Financial Resource Strain: Not on file Food Insecurity: Not on file Transportation Needs: Not on file Physical Activity: Not on file Housing Stability: Not on file Family History Family History Problem Relation Age of Onset ??? Alzheimer Disease Brother Exam Patient Vitals for the past 24 hrs: Pulse BP 09/11/22 0904 53 140/71 Physical Exam Constitutional: Comments: Body mass index is 27.99 kg/m??. HENT: Mouth/Throat: Pharynx: No oropharyngeal exudate. Eyes: Conjunctiva/sclera: Conjunctivae normal. Cardiovascular: Rate and Rhythm: Bradycardia present. Pulses: Normal pulses. Pulmonary: Effort: Pulmonary effort is normal. Skin: General: Skin is warm. Neurological: General: No focal deficit present. Mental Status: He is alert. Psychiatric: Mood and Affect: Mood normal. I have personally reviewed the ECG: sinus rhythm, 53 bpm, WY 140 ms, QRS 80 ms, QT 480 [...] he was quite unwell following this booster. Since his cardioversion he has been doing well, has no symptoms of palpitations or irregular rhythm. He is minimally aware of PVCs. He is in sinus bradycardia today. We had a discussion about treatment options, including the possibility of watchful waiting, antiarrhythmic therapy (choices are somewhat limited secondary to QT prolongation on dofetilide, CAD, bradycardia), and repeat ablation. We have agreed that watchful waiting, is reasonable for now. He knows to reach out to me for questions or concerns. In the future, he will treat fever from vaccines/viral illnesses with Tylenol, and hydrate aggressively. Will follow-up in about 6 months time Recommendations / Plan A) No changes to current medications-he can reduce the dose of metoprolol if he feels symptoms (currently no symptoms related to bradycardia) B) Vigilance, for recurrence of atrial arrhythmias C) Continue with anticoagulation D) Routine follow-up in about 6 months time, or sooner for recurrence of symptoms GONZALES TORRES MD Cardiac Electrophysiology [facility] 35 minutes of this 40minute encounter were spent preparing to see the patient (e.g. review of tests), obtaining and/or reviewing separately obtained history, performing a medically appropriate examination and/or evaluation, counseling and educating the patient, ordering medications, tests, or procedures, documenting clinical information in the electronic medical record, Independently interpretingresults Cc: Camacho Barrera DO documented in this encounter Plan of Treatment Upcoming Encounters Date Type Department Care Team (Late st Contact Info) Description 09/08/2024 9:40 AM EDT Office Visit Cardiology at [address] [phone] Gonzales Torres MD [facility] [place] [address] documented as of this encounter Visit Diagnoses Diagnosis Premature ventricular beats Other premature beats documented in this encounter Care Teams Patient Case Coordinator Relationship Specialty Start Date End Date Camacho Barrera DO [address] [place] [address] PCP - General Family Medicine 07/01/18 documented as of this encounter
--- OUTSIDE RECORDS SUMMARY | 2024-07-21 19:28 | XMS_ITS | Encounter Summary ---
Author Organization [facility] [place] [address] Care Team Providers Care Storage Management Consultant Name Role Phone Camacho Barrera DO Primary Care Provider [phone] Encounter Details Date Type Department Care Team (Late st Contact Info) Description 06/25/2022 Orders Only Cardiology at [address] [phone] Kenny Nelson MD [facility] [place] [address] Paroxysmal atrial fibrillation Social History Tobacco Use [...] 9:40 AM EDT Office Visit Cardiology at [address] [place] [address] Gonzales Torres MD [facility] [place] [address] documented as of this encounter Visit Diagnoses Diagnosis Paroxysmal atrial fibrillation Atrial fibrillation documented in this encounter Care Teams Storage Management Consultant Relationship Specialty Start Date End Date Camacho Barrera DO [address] [place] [address] PCP - General Family Medicine 07/01/18 documented as of this encounter
--- OUTSIDE RECORDS SUMMARY | 2024-07-21 19:28 | XMS_ITS | Encounter Summary ---
Author Organization [facility] [place] [address] Care Team Providers Care Physical Therapy Coordinator Name Role Phone Camacho Barrera DO Primary Care Provider [phone] Encounter Details Date Type Department Care Team (Late st Contact Info) Description 01/15/2023 Interpretation Only [address] [phone] Jesus Patino MD [address] [place] [address] [phone] Social History Tobacco Use Types Packs/Day Years [...] AM EDT Office Visit Cardiology at [address] [place] [address] Gonzales Torres MD [facility] [place] [address] documented as of this encounter Procedures Procedure Name Priority Date/Time Associated Diagnosis Comments XR CHEST PA AND LATERAL STAT 01/15/2023 7:09 AM EST documented in this encounter Results * XR Chest PA & Lateral (Generic) (01/15/2023 7:09 AM EST) PT CLASS E RAD ADMITDTTM [id number] RAD PT RAD INFO [id number]^Ip^Herb ert^S.^^M.D. RAD EXAM DESC XCXR2^XR CHEST 2 VIEWS^RIS RAD Anatomical Region Laterality Modality Chest N/A Radiographic Meagan ging 01/15/2023 7:09 AM EST Impressions 01/15/2023 7:18 AM EST 1. ??Moderate cardiomegaly with mild interstitial edema and trace left effusion. 2. ??Left lower lobe opacity, concerning for infectious versus [...] who have questions please contact the health insurance healthcare representative that requested your imaging first. ? Narrative 01/15/2023 7:18 AM EST EXAMINATION: XR CHEST 2 VIEWS CLINICAL HISTORY: [...] No pneumothorax. No acutely displaced rib fracture. Procedure Note Kelly Lion MD - 01/15/2023 EXAMINATION: XR CHEST 2 VIEWS CLINICAL HISTORY: rapid atrial flutter, follow up pleural effusions,evaluate for pulmonary edema TECHNIQUE: PA and lateral views of the chest COMPARISON: CT chest 12/19/2016 FINDINGS: Moderate cardiomegaly. Anterior left lower lobe opacity with obscurationof the left hemidiaphragm. Mild interstitial edema with trace left pleuraleffusion. No effusion on the right. No pneumothorax. No acutely displaced ribfracture. IMPRESSION 1. Moderate cardiomegaly with mild interstitial edema and trace lefteffusion. 2. Left lower lobe opacity, concerning for infectious versusinflammatory process. I have personally reviewed the image(s) and the resident's interpretationand agree with the findings, Kelly Lion MD at 01/15/2023 7:18 AM Thank you for letting us participate in the care of this patient. If youare a health care provider and have any questions regarding this report,please contact the number below. For patients who have questions please contactthe health insurance healthcare representative that requested your imaging first. Jesus Patino MD IMG DX ORDERABLES documented in this encounter Visit Diagnoses Not on filedocumented in this encounter Care Teams Physical Therapy Coordinator Relationship Specialty Start Date End Date Camacho Barrera DO [address] [place] [id number] PCP - General Family Medicine 07/01/18 documented as of this encounter
--- OUTSIDE RECORDS SUMMARY | 2024-07-21 19:28 | XMS_ITS | Encounter Summary ---
Author Organization [facility] [address] Care Team Providers Care Spinner Frame Name Role Phone Camacho Barrera DO Primary Care Provider [phone] Encounter Details Date Type Department Care Team (Latest Contact Info) Description 06/18/2023 Travel Social History Tobacco Use Types Packs/Day [...] AM EDT Office Visit Cardiology at [address] [place] [address] Gonzales Torres MD [facility] [id number] documented as of this encounter Visit Diagnoses Not on filedocumented in this encounter Care Teams Spinner Frame Relationship Specialty Start Date End Date Camacho Barrera DO [address] [place] [address] PCP - General Family Medicine 07/01/18 documented as of this encounter
--- OUTSIDE RECORDS SUMMARY | 2024-07-21 19:28 | XMS_ITS | Encounter Summary ---
Author Organization [facility] [place] [address] Care Team Providers Care Spot Welder Line Name Role Phone Camacho Barrera DO Primary Care Provider [phone] Reason for Visit * Reason Onset Date Comments Medication Refill 02/10/2023 Encounter Details Date Type Department Care Team (Late st Contact Info) Description 02/10/2023 Refill Cardiology at [address] [phone] Gonzales Torres MD [facility] [place] [address] Medication Refill Social History Tobacco Use Types [...] AM EDT Office Visit Cardiology at [address] [phone] Gonzales Torres MD [facility] [place] [address] documented as of this encounter Visit Diagnoses Diagnosis Paroxysmal atrial fibrillation Atrial fibrillation documented in this encounter Care Teams Spot Welder Line Relationship Specialty Start Date End Date Camacho Barrera DO [address] [place] [address] PCP - General Family Medicine 07/01/18 documented as of this encounter
--- OUTSIDE RECORDS SUMMARY | 2024-07-21 19:28 | XMS_ITS | Encounter Summary ---
Author Organization [facility] [place] [address] Care Team Providers Care Match Maker Name Role Phone Camacho Barrera DO Primary Care Provider Encounter Details Date Type Department Care Team (Late st Contact Info) Description 01/15/2023 Interpretation Only [address] [phone] Unknown None Social History Tobacco [...] 9:40 AM EDT Office Visit Cardiology at [address] [place] [phone] Gonzales Torres MD [facility] [place] [address] documented as of this encounter Procedures Procedure Name Priority Date/Time Associated Diagnosis Comments ARABELLA POCUS Routine 01/15/2023 documented in this encounter Results * ARABELLA POCUS (01/15/2023) Anatomical Region Laterality Modality Other 01/15/2023 Narrative 01/15/2023 12:00 AM EST POCUS Image Procedure Note Unknown - 01/16/2023 POCUS Image Unknown EA IMAGES documented in this encounter Visit Diagnoses Not on filedocumented in this encounter Care Teams Match Maker Relationship Specialty Start Date End Date Camacho Barrera DO [address] [place] [address] PCP - General Family Medicine 07/01/18 documented as of this encounter
--- OUTSIDE RECORDS SUMMARY | 2024-07-21 19:28 | XMS_ITS | Encounter Summary ---
[place] [address] Care Team Providers Care Wound Specialist Name Role Phone Camacho Barrera DO Primary Care Provider [phone] Encounter Details Date Type Department Care Team (Late st Contact Info) Description 05/07/2023 Telephone [place] [address] Gregorio Beasley MD [facility] [place] [address] Social History Tobacco Use Types Packs/Day Years [...] encounter Miscellaneous Notes * Telephone Encounter - Gregorio Beasley MD - 05/07/2023 7:13 PM EDT Telephone Triage Note 05/07/2023 Camacho Flores Initial Contact Date: 05/07/2023 Initial contact time: 7:13 PM Referring Provider: Dr. Ewing Patient Location: [facility] Contacted by [facility] ED for cardiology consultation. History taking and objective data are per the OSH ED provider/staff member. History Of Present Illness: Camacho Flores is a 77 y.o. male with PMH of paroxysmal afib/flutter s/p ablation in 2018 who presented to the above location with afib and CHF. Patient was previously on metoprolol 50mg xl BID and he has been given increased doses of metoprolol (now on 50mg q6hr) and has been diuresed but continue to have mild volume on board. Will likely be switched to PO diuretics tomorrow. Vital Signs at OSH HR 110's on metoprolol 50mg q6hr, BP stable and satting well on RA Physical Exam Significant For Mild fluid overload Pertinent Diagnostic Findings: Scanned EKG demonstrates coarse afib vs flutter at rate of 140 Labs: -BMP, CBC, trops negative OSH Interventions: Increased metoprolol to 50mg q6hr. Diuresis with good effect. Assessment: Given above history, presentation, and data, this episode most likely represents afib/flutter with RVR in the setting of CHF. Looking at last sinus ECG from 08/2022 patient's HR was in the 50's with metoprolol 50mg BID. Given this, I did not recommend keeping the increased metoprolol. He has been diuresed and can likely be cardioverted tomorrow as he has been compliant with his xarelto. I expect when this happens his HR will be in the 50's. Looking through Dr. Torres's note from 01/2023 he recommended digoxin if he has rapid fib/flutter which we will do post-cardioversion Plan: -Keep metoprolol 50mg q6hr tonight -Transition to metoprolol 50mg BID after midnight to avoid bradycardia post cardioversion -Cardioversion tomorrow as he has been compliant with xarelto and hasn't missed any doses -Start digoxin post-cardioversion (recommended talking to pharmacy for load dosing) -TTE at OSH given CHF -F/u with Dr. Torres Above recommendations were based on my discussion with covering provider; I have not personally interviewed or examined this patient. Advised to call the transfer center back with any changes in the patient condition. Gregorio Beasley Windows Admin [id number] documented in this encounter Plan of Treatment Upcoming Encounters Date Type Department Care Team (Late st Contact Info) Description 09/08/2024 9:40 AM EDT Office Visit Cardiology at [address] [place] [address] Gonzales Torres MD [facility] [place] [address] documented as of this encounter Visit Diagnoses Not on filedocumented in this encounter Care Teams Wound Specialist Relationship Specialty Start Date End Date Camacho Barrera DO [address] [place] [address] PCP - General Family Medicine 07/01/18 documented as of this encounter
--- OUTSIDE RECORDS SUMMARY | 2024-07-21 19:29 | XMS_ITS | Encounter Summary ---
[place] [address] Care Team Providers Care Pharmacy Informatics Specialist Name Role Phone Camacho Barrera DO Primary Care Provider [phone] Encounter Details Date Type Department Care Team (Late st Contact Info) Description 06/20/2019 Telephone Cardiology at [address] [phone] Nasim Harris MD [facility] [place] [address] Social History Tobacco Use Types Packs/Day Years [...] 9:40 AM EDT Office Visit Cardiology at [address] [phone] Gonzales Torres MD [facility] [place] [address] documented as of this encounter Visit Diagnoses Not on filedocumented in this encounter Care Teams Pharmacy Informatics Specialist Relationship Specialty Start Date End Date Camacho Barrera DO [address] [place] [address] PCP - General Family Medicine 07/01/18 documented as of this encounter
--- OUTSIDE RECORDS SUMMARY | 2024-07-21 19:29 | XMS_ITS | Encounter Summary ---
Author Organization [place] [id number] Care Team Providers Care Gis Professor Name Role Phone Camacho Barrera DO Primary Care Provider [phone] Reason for Referral * Diagnostic Test (Routine) - Closed Specialty Diagnoses / Procedures Referred By Contac t Referred To Contact Cardiology Diagnoses Status post ablation of atrial fibrillation Paroxysmal atrial fibrillation Procedures Kenny Mcadams MD [facility] [place] [address] [facility] Cardiology [address] [place] [phone] Referral ID Status Reason Start Date Expiration Date V isits Requested Visits Authorized [id number] Closed Specialty Service Requested 10/21/2018 10/21/2019 1 1 Reason for Visit * Diagnostic Test (Routine) - Closed Specialty Diagnoses / Procedures Referred By Contac t Referred To Contact Cardiology Diagnoses Status post ablation of atrial fibrillation Paroxysmal atrial fibrillation Procedures Kenny Mcadams MD [facility] [place] [address] [facility] Cardiology [address] [place] [phone] Referral ID Status Reason Start Date Expiration Date V isits Requested Visits Authorized [id number] Closed Specialty Service Requested 10/21/2018 10/21/2019 1 1 Encounter Details Date Type Department Care Team (Latest Contact Info) Description 12/21/2018 12:25 PM EST - 12/21/2018 11:59 PM EST Hospital Encounter Non-Invasive Cardiology Lab [facility] [place] [address] Status post ablation of atrial fibrillation; Paroxysmal atrial fibrillation Discharge Disposition: Home Social History [...] Dispensed Refills Start Date End Date lisinopril (PRINIVIL;ZESTRIL) 10 mg Tablet Take 20 mg by mouth daily. 08/28/2022 magnesium oxide (MAG-OX) 400 mg Tablet Take 1 tablet by mouth daily. 30 tablet 12 08/01/2018 10/03/2021 nitroGLYcerin (NITROSTAT) 0.4 mg Tablet, Sublingual Place 1 tablet under the tongue every 5 minutes as needed for Chest pain. 90 tablet 12 08/01/2018 02/11/2024 Brimonidine-Timolol (COMBIGAN) 0.2-0.5 % Drops Apply 1 drop to eye 2 times daily. 08/28/2022 rivaroxaban (XARELTO) 20 mg Tablet Take 20 mg by mouth daily. 11/07/2020 atorvastatin (LIPITOR) 10 mg Tablet Take 10 mg by mouth daily. 05/21/2023 documented as of this encounter Plan of Treatment Upcoming Encounters Date Type Department Care Team (Late st Contact Info) Description 09/08/2024 9:40 AM EDT Office Visit Cardiology at [address] [place] [address] Gonzales Torres MD [facility] [place] [address] documented as of this encounter Procedures Procedure Name Priority Date/Time Associated Diagnosis Comments FRANK Routine 12/21/2018 12:46 PM EST Status post ablation of atrial fibrillation Paroxysmal atrial fibrillation documented in this encounter Results * Ziopatch (12/21/2018 12:46 PM EST) Anatomical Region Laterality Modality Other Narrative 01/25/2019 2:51 PM EST Cardiac Electrophysiology Zio Monitor Study Initiated: ??21 December 2018 Duration: ?? 13 days 21 hours (after removal of ~1 hour of artifact) Indication: Post-procedural Result: The overall sinus rhythm rate range was 44-137/minute, and averaged 62/minute. The predominant underlying rhythm throughout the monitoring period was conducted sinus rhythm. The slowest heart rates tended to occur overnight, and overall heart rate variation from moment to moment was limited. No pauses >3 seconds were seen, and there was no high grade atrioventricular conduction block reported or observed at normal sinus rates. There was a <1.0% burden of isolated ectopic supraventricular beats detected, and rare couplets and triplets were detected as well. There were 44 supraventricular runs detected (the run with the fastest interval lasted 6 beats with a maximum rate of 160/minute, and the longest lasted 20.1 seconds at a mean rate of 115/minute). There was a 8.6% burden of isolated ectopic ventricular beats detected, and rare couplets and triplets were detected as well. There were 3 ventricular runs detected (the run with the fastest interval lasted 4 beats with a maximum rate of 255/minute, and the longest lasted 5 beats seconds at a mean rate of 97/minute). Ventricular bigeminy lasting for up to 27.7 seconds was detected, and ventricular trigeminy lasting for up to 17.1 seconds also was detected. The ventricular ectopy was unifocal, with 2 predominant morphologies manifest (somewhat more prevalent during daytime hours). The patient wrote in no timed diary entries for symptoms. There were 2 patient-triggered events that corresponded to sinus rhythm with ventricular ectopy +/- supraventricular ectopy. Conclusion: This monitor study was remarkable for sinus rhythm. Occasional nonsustained supraventricular tachycardia runs (without any atrial flutter/fibrillation) and an 8.6% burden of ventricular ectopy were detected. ____ Interpreted by Kenny Nelson MD, [facility] Kenny Nelson MD CARDIAC SERVICES ORD ERABLES documented in this encounter Visit Diagnoses Diagnosis Status post ablation of atrial fibrillation Other postprocedural status Paroxysmal atrial fibrillation Atrial fibrillation documented in this encounter Care Teams Gis Professor Relationship Specialty Start Date End Date Camacho Barrera DO [address] [place] [address] PCP - General Family Medicine 07/01/18 documented as of this encounter
--- OUTSIDE RECORDS SUMMARY | 2024-07-21 19:29 | XMS_ITS | Encounter Summary ---
[place] [address] Care Team Providers Care Welt Butter Hand Name Role Phone Camacho Barrera DO Primary Care Provider [phone] Reason for Referral * Diagnostic Test (Routine) - Closed Specialty Diagnoses / Procedures Referred By Contac t Referred To Contact Cardiology Diagnoses Paroxysmal atrial fibrillation Procedures Ziopatch 48 Hrs-15 Days Kenny Nelson MD [facility] [place] [address] [facility] [place] [address] Referral ID Status Reason Start Date Expiration Date V isits Requested Visits Authorized [id number] Closed Specialty Service Requested 06/14/2021 12/15/2021 1 1 Encounter Details Date Type Department Care Team (Late st Contact Info) Description 03/07/2021 Orders Only Cardiology at [address] [phone] Kenny Nelson MD [facility] [place] [address] Paroxysmal atrial fibrillation Social History Tobacco Use [...] AM EDT Office Visit Cardiology at [address] [address] Gonzales Torres MD [facility] [place] [address] documented as of this encounter Results * Ziopatch 48 Hrs-15 Days (06/20/2021 7:44 AM EDT) Anatomical Region Laterality Modality Other Narrative 07/19/2021 3:54 PM EDT Indication: Paroxysmal atrial fibrillation Maximum sinus rhythm 140 bpm Minimum sinus rhythm 42 bpm Average sinus rhythm 63 bpm Predominant underlying rhythm was sinus. ??2 short nonsustained ventricular tachycardia runs were noted. ??53 supraventricular tachycardia runs occurred, fastest at 167 bpm for 6 beats, and longest lasting 20 beats with an average rate of 107 bpm. ??Idioventricular rhythm was present. ?? Frequent isolated supraventricular ectopy was present. ??Rare ventricular ectopy was present. ??There were no significant pauses. ??No atrial fibrillation was seen. Impression: 1. ??Arrhythmias as noted above, no atrial fibrillation noted. Kenny Nelson MD CARDIAC SERVICES ORD ERABLES documented in this encounter Visit Diagnoses Diagnosis Paroxysmal atrial fibrillation Atrial fibrillation Paroxysmal atrial fibrillation Atrial fibrillation documented in this encounter Care Teams Welt Butter Hand Relationship Specialty Start Date End Date Camacho Barrera DO [address] [place] [address] PCP - General Family Medicine 07/01/18 documented as of this encounter
--- OUTSIDE RECORDS SUMMARY | 2024-07-21 19:29 | XMS_ITS | Encounter Summary ---
Author Organization [facility] [place] [address] Care Team Providers Care Housekeeper Name Role Phone Camacho Barrera DO Primary Care Provider [phone] Encounter Details Date Type Department Care Team (Late st Contact Info) Description 06/20/2019 Telephone Cardiology at [address] [address] Nasim Harris MD [facility] [place] [address] Social History Tobacco Use Types Packs/Day Years [...] encounter Miscellaneous Notes * Telephone Encounter - Nasim Harris MD - 06/20/2019 4:05 PM EDT Telephone Triage Note Initial Contact Date: 06/20/19 Initial contact time: 1608 Referring Provider: Dean Guerrero Patient Location: [facility] Presenting Symptoms per OSH: Intermittent CP Past Medical History: 73 y/o male PMH CAD prior PCI, A. Fib, HTN, HLD who presents with intermittent CP that woke him up from sleep. It is mostly nonexertional and described as aching with no radiation. He also had some dizziness and paraesthesia in his L arm. CT head was normal. His symptoms prior to his previous stents were SOB of which he does not have at this time. He is also currently not on any antiplatelets. Pertinent Diagnostic Findings: Vitals: BP 131/65 HR 68 SaO2 EKG : STD II, TWI in V2-Ve Troponin : neg CXR: OSH Interventions: ASA 81mg Assessment/Plan: 73 y/o with known CAD who presents atypical chest pain for the past night. He has had a LHC about 11 months ago that showed nonobstructive CAD. Although his symptoms are not particularly alarming, heis not on ASA due to history of GI bleed which makes it slightly more significant. He also does have nonspecific ECG changes but it has been seen previously. Unfortunately OSH does not have any stress testing capabilities and so will bring patient over for stress testing. - Above recommendations are based on information received over the phone; I have not personally interviewed or examined this patient. Nasim Harris MD [employer] PGY4 P: [phone] documented in this encounter Plan of Treatment Upcoming Encounters Date Type Department Care Team (Late st Contact Info) Description 09/08/2024 9:40 AM EDT Office Visit Cardiology at [address] [phone] Gonzales Torres MD [facility] [place] [address] documented as of this encounter Visit Diagnoses Not on filedocumented in this encounter Care Teams Housekeeper Relationship Specialty Start Date End Date Camacho Barerra DO [address] [place] [address] PCP - General Family Medicine 07/01/18 documented as of this encounter
--- OUTSIDE RECORDS SUMMARY | 2024-07-21 19:29 | XMS_ITS | Encounter Summary ---
[place] [address] Care Team Providers Care Transonic Engineer Name Role Phone Camacho Barrera DO Primary Care Provider [phone] Reason for Referral * Diagnostic Test (Routine) - Closed Specialty Diagnoses / Procedures Referred By Contac t Referred To Contact Cardiology Diagnoses Status post ablation of atrial fibrillation Paroxysmal atrial fibrillation Procedures Kenny Mcadams MD [facility] [place] [address] [facility] Cardiology [address] [place] [phone] Referral ID Status Reason Start Date Expiration Date V isits Requested Visits Authorized [id number] Closed Specialty Service Requested 10/21/2018 10/21/2019 1 1 Encounter Details Date Type Department Care Team (Late st Contact Info) Description 10/21/2018 Orders Only Cardiology at [address] [phone] Kenny Nelson MD [facility] [place] [address] Status post ablation of atrial fibrillation; Paroxysmal atrial fibrillation Social History Tobacco Use [...] AM EDT Office Visit Cardiology at [address] [place] [address] Gonzales Torres MD [facility] [address] documented as of this encounter Results * Ziopatch (12/21/2018 12:46 [...] detected. ____ Interpreted by Kenny Nelson MD, [facility] Kenny Nelson MD CARDIAC SERVICES ORD ERABLES documented in this encounter Visit Diagnoses Diagnosis Status post ablation of atrial fibrillation Other postprocedural status Paroxysmal atrial fibrillation Atrial fibrillation Status post ablation of atrial fibrillation Other postprocedural status Paroxysmal atrial fibrillation Atrial fibrillation documented in this encounter Care Teams Transonic Engineer Relationship Specialty Start Date End Date Camacho Barrera DO [address] [place] [address] PCP - General Family Medicine 07/01/18 documented as of this encounter
--- OUTSIDE RECORDS SUMMARY | 2024-07-21 19:29 | XMS_ITS | Encounter Summary ---
[place] [address] Care Team Providers Care Service Manager Name Role Phone Camacho Barrera DO Primary Care Provider [phone] Encounter Details Date Type Department Care Team (Late st Contact Info) Description 11/26/2018 10:00 AM EST Office Visit Cardiology at [address] [address] Lona Torres MD [facility] [place] [address] Steve Celaya DO [facility] [place] [address] Paroxysmal atrial fibrillation Social History Tobacco Use [...] Sign Reading Time Taken Comments Blood Pressure 136/74 11/26/2018 9:47 AM EST Pulse 62 11/26/2018 9:47 AM EST Temperature - - Respiratory Rate - - Oxygen Saturation 100% 11/26/2018 9:47 AM EST Inhaled Oxygen Concentration - - Weight 99.8 kg (220 lb) 11/26/2018 9:47 AM EST Height 188 cm (6' 2) 11/26/2018 9:47 AM EST Body Mass Index 28.25 11/26/2018 9:47 AM EST documented in this encounter Progress Notes * Steve Celaya, DO - 11/26/2018 10:00 AM EST Images from the original note were not included. Section of Cardiology/Cardiac Electrophysiology Clinical Cardiac Electrophysiology Follow up Patient ID Camacho Flores [id number] Camacho Flores is following up in EP clinic. History 73 year old gentleman with recent diagnosis of atrial fibrillation diagnosed in late May of 2018. His symptoms are predominantly lightheadedness, dizziness, but no palpitations. He had undergone electrical cardioversion in July but reverted to AF 1 week later. He had recurrent symptoms but this time also with exertional chest pain that prompted inpatient admission. A coronary angiogram showed patient stents (from 2005, 2006) , non-obstructive CAD. He had a ROLAND guided DCCV after 2 doses of Tikosyn load (500 mcg BID) but due to QTc prolongation, his Tikosyn had to be stopped. He remained on Metoprolol tartrate 50 mg BID for rate control and Xarelto for stroke prophylaxis. On 10/20/18 he underwent AF ablation with Dr. Nelson and myself with the following outcomes; 1) Acute electrical isolation of the right pulmonary vein antrum, and attempted acute electrical isolation of the remainder of the posterior left atrium (instead resulting in marked delay of activation within the leftward posterior left atrium). Acute electrical isolation of the entire region was not achieved (despite apparent conduction block along the perimeter of the posterior left atrium) dueto apparent epicardial connections distributed within the posterior left atrium, some of which werealong the posterior edge of the right lorna. The intended result was for acute electrical isolation of the entire posterior left atrium. ?? 2) Inferior cavotricuspid isthmus dependent atrial flutter was the presenting rhythm; this was ablated, with bidirectional conduction block across the inferior cavotricuspid isthmus subsequently demonstrated. ?? 3) Preserved atrioventricular conduction, with dual atrioventricular node physiology manifest (no atrial echo beats elicited with limited testing). ?? 4) No finding of an accessory pathway. ?? 5) The P wave duration post-cardioversion and pre-ablation was prolonged at >190 ms (the sinus rhythm DE interval); the post-ablation sinus rhythm P wave duration was >190 ms (the sinus rhythm DE interval). Metoprolol and Amiodarone were discontinued at the time of discharge from his AF ablation proceduredue to patient's concerns that these drugs have caused him to be fatigue and hypotension. Since his procedure, he's been doing well. No chest pain. His heart rate is mostly in the 40's at home and after his hikes in the 60's. He at times feels lightheaded with position change. Problem List Patient Active Problem List Diagnosis ??? Status post ablation of atrial fibrillation ??? ASCVD (arteriosclerotic cardiovascular disease) PCI in 2005 at [facility]: stents to LAD x2, LCx x2, ramus ??? Atrial fibrillation Diagnosed 2018, on rivaroxaban, s/p DCCV ??? Hypertension ??? HLD (hyperlipidemia) ??? Chest pain ??? Brain abscess Review of Systems ROS Occasional nosebleed in the winter. Rest of ros were found to be negative. Meds Current Outpatient Medications Medication Sig Dispense Refill ??? pantoprazole (PROTONIX) 40 mg Tablet, Delayed Release (E.C.) Take 1 tablet by mouth daily. 60 tablet 0 ??? dilTIAZem (DILTIAZEM CD) 120 mg Capsule, Sust. Release 24 hr Take 1 capsule by mouth daily. 30 capsule 3 ??? magnesium oxide (MAG-OX) 400 mg Tablet Take 1 tablet by mouth daily. 30 tablet 12 ??? nitroGLYcerin (NITROSTAT) 0.4 mg Tablet, Sublingual Place 1 tablet under the tongue every 5 minutes as needed for Chest pain. 90 tablet 12 ??? Brimonidine-Timolol (COMBIGAN) 0.2-0.5 % Drops Apply 1 drop to eye 2 times daily. ??? rivaroxaban (XARELTO) 20 mg Tablet Take 20 mg by mouth daily. ??? atorvastatin (LIPITOR) 10 mg Tablet Take 10 mg by mouth daily. No current facility-administered medications for this visit. Social History Social History Socioeconomic History ??? Marital status: Spouse name: Not on file ??? Number of children: Not on file ??? Years of education: Not on file ??? Highest education level: Not on file Social Needs ??? Financial resource strain: Not on file ??? Food insecurity - worry: Not on file ??? Food insecurity - inability: Not on file ??? Transportation needs - medical: Not on file ??? Transportation needs - non-medical: Not on file Occupational History ??? Not on file Tobacco Use ??? Smoking status: Never Smoker ??? Smokeless tobacco: Never Used Substance and Sexual Activity ??? Alcohol use: Not on file Comment: 2-3 drinks/night ??? Drug use: No ??? Sexual activity: Not on file Other Topics Concern ??? 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 Family History Family History Problem Relation Age of Onset ??? Alzheimer Disease Brother Exam There were no vitals filed for this visit. Physical Exam Gen: Appears well, no acute distress Lungs: CTA b/l, no w/r/r Cardiac: Regular rate and rhythm, S1, S2, no murmurs or gallops, no rubs Abd: Soft, NT/ND, +BS, no organomegaly Ext: Warm, no edema, b/l groin sites well healed Neuro: No focal deficits Skin: Warm, no new rashes MSK: Intact ROM in all extremities ECG: SR rhythm, 59 bpm, DE 104 ms, QRS 84 ms, QTC 430 (manual) no brugada, or pre-excitation, no Long QT' Impression 73 year old man with persistent AF s/p CTI flutter ablation and attempted posterior wall isolation but required segmentation of RPV to achieve isolation there but a delayed conduction to the left PV.Isolation to the LPV could not be achieved. Mapping was suggestive of probably an epicardial connection. He was taken off Amiodarone and Metoprolol at the time of discharge due to fatigue. He has nottolerated Tikosyn due to QTc prolongation. He remains on Diltiazem 120 mg daily but states that hispulse is now in 40's and experiences orthostatic symptoms Recommendations / Plan A) We discussed discontinuing the diltiazem 120 mg due to his orthostasis and reported bradycardia.He will keep a BP and HR log via his home monitoring device. B) Zio in 1 month with f/u with Dr. Nelson in 2 months. C) We discussed half-way continuation of his Eliquis. Supervising attending: Dr. Melissa Celaya DO Cardiac Electrophysiology Fellow Cc: Camacho Barrera DO For the purpose of billing, this patient was seen by the fellow LONA TORRES MD documented in this encounter Plan of Treatment Upcoming Encounters Date Type Department Care Team (Late st Contact Info) Description 09/08/2024 9:40 AM EDT Office Visit Cardiology at [address] [place] [address] Lona Torres MD [facility] [place] [address] documented as of this encounter Procedures Procedure Name Priority Date/Time Associated Diagnosis Comments EKG 12-LEAD Routine 11/26/2018 9:59 AM EST Paroxysmal atrial fibrillation documented in this encounter Results * EKG 12 Lead (11/26/2018 9:59 AM EST) Ventricular rate 59 BPM MUSE SYSTEM Atrial Rate 59 BPM MUSE SYSTEM P-R Interval 104 ms MUSE SYSTEM QRS Duration 84 ms MUSE SYSTEM Q-T Interval 456 ms MUSE SYSTEM QTC Calculated (Bezet) 451 ms MUSE SYSTEM Calculated P [place] 104 degrees MUSE SYSTEM Calculated R [place] 19 degrees MUSE SYSTEM Calculated T [place] 102 degrees MUSE SYSTEM INTERPRETATION Sinus bradycardia with short DE RSR' or QR pattern in V1 suggests right ventricular conduction delay Abnormal ECG When compared with ECG of 18-AUG-2018 09:06, Sinus rhythm has replaced Atrial fibrillation Confirmed by MD Colton, Humble White ([id number]) on 11/26/2018 10:43:46 AM MUSE SYSTEM 11/26/2018 9:59 AM EST 11/26/2018 10:43 AM EST Lona Torres MD ECG ORDERABLES MUSE SYSTEM documented in this encounter Visit Diagnoses Diagnosis Paroxysmal atrial fibrillation Atrial fibrillation documented in this encounter Care Teams Service Manager Relationship Specialty Start Date End Date Camacho Barrera DO [address] [place] [address] PCP - General Family Medicine 07/01/18 documented as of this encounter
--- OUTSIDE RECORDS SUMMARY | 2024-07-21 19:29 | XMS_ITS | Encounter Summary ---
[place] [address] Care Team Providers Care Service Station Cashier Name Role Phone Camacho Barrera DO Primary Care Provider Reason for Referral * Diagnostic Test (Routine) - Closed Specialty Diagnoses / Procedures Referred By Contac t Referred To Contact Cardiology Diagnoses Paroxysmal atrial fibrillation Procedures Ziopatch 48 Hrs-15 Days Kenny Nelson MD [facility] [place] [address] [facility] [place] [address] Referral ID Status Reason Start Date Expiration Date V isits Requested Visits Authorized [id number] Closed Specialty Service Requested 06/14/2021 12/15/2021 1 1 Reason for Visit * Diagnostic Test (Routine) - Closed Specialty Diagnoses / Procedures Referred By Contac t Referred To Contact Cardiology Diagnoses Paroxysmal atrial fibrillation Procedures Ziopatch 48 Hrs-15 Days Kenny Nelson MD [facility] [place] [address] [facility] [place] [address] Referral ID Status Reason Start Date Expiration Date V isits Requested Visits Authorized [id number] Closed Specialty Service Requested 06/14/2021 12/15/2021 1 1 Encounter Details Date Type Department Care Team (Latest Contact Info) Description 06/20/2021 7:40 AM EDT - 06/20/2021 11:59 PM EDT Hospital Encounter Non-Invasive Cardiology Lab [facility] [place] [phone] Kenny Nelson MD [facility] [place] [address] Paroxysmal atrial fibrillation Discharge Disposition: Home Social [...] Sig Dispensed Refills Start Date End Date rivaroxaban (Xarelto) 20 mg TabletIndications:Paroxy smal atrial fibrillation Take 1 tablet by mouth daily. 90 tablet 1 06/17/2021 02/10/2023 metoprolol succinate XL (Toprol-XL) 50 mg Tablet Sustained Release 24 hr Take 1 tablet by mouth daily. 30 tablet 11 10/09/2020 2021 lisinopril (PRINIVIL;ZESTRIL) 10 mg Tablet Take 20 [...] drop to eye 2 times daily. 08/28/2022 atorvastatin (LIPITOR) 10 mg Tablet Take 10 mg by mouth daily. 05/21/2023 documented as of this encounter Plan of Treatment Upcoming Encounters Date Type Department Care Team (Late st Contact Info) Description 09/08/2024 9:40 AM EDT Office Visit Cardiology at [address] [place] [address] Gonzales Torres MD [facility] [place] [address] documented as of this encounter Procedures Procedure Name Priority Date/Time Associated Diagnosis Comments ZIOPATCH 48 HRS-15 DAYS Routine 06/20/2021 7:44 AM EDT Paroxysmal atrial fibrillation documented in this encounter Results * Ziopatch 48 Hrs-15 [...] documented in this encounter Care Teams Service Station Cashier Relationship Specialty Start Date End Date Camacho Barrera DO [address] [place] [address] PCP - General Family Medicine 07/01/18 documented as of this encounter
--- OUTSIDE RECORDS SUMMARY | 2024-07-21 19:29 | XMS_ITS | Encounter Summary ---
[place] [address] Care Team Providers Care Department Head Name Role Phone Camacho Barrera DO Primary Care Provider [phone] Reason for Visit * Reason Onset Date Comments Medication Refill 06/14/2021 Encounter Details Date Type Department Care Team (Late st Contact Info) Description 06/14/2021 Refill Cardiology at [address] [address] Kenny Nelson MD [facility] [place] [address] Medication Refill Social History Tobacco Use Types [...] AM EDT Office Visit Cardiology at [address] [place] [phone] Gonzales Torres MD [facility] [place] [address] documented as of this encounter Visit Diagnoses Diagnosis Paroxysmal atrial fibrillation Atrial fibrillation documented in this encounter Care Teams Department Head Relationship Specialty Start Date End Date Camacho Barrera DO [address] [place] [address] PCP - General Family Medicine 07/01/18 documented as of this encounter
--- OUTSIDE RECORDS SUMMARY | 2024-07-21 19:29 | XMS_ITS | Encounter Summary ---
Author Organization [facility] [place] [address] Care Team Providers Care Mechanical Systems Design Engineer Name Role Phone Camacho Barrera DO Primary Care Provider [phone] Encounter Details Date Type Department Care Team (Late st Contact Info) Description 08/18/2018 9:00 AM EDT Office Visit Cardiology at [address] [address] Komal Nguyen MD [facility] [place] [address] Steve Celaya DO [facility] [place] [address] Persistent atrial fibrillation Social History Tobacco Use [...] Sign Reading Time Taken Comments Blood Pressure 112/68 08/18/2018 9:05 AM EDT Pulse 78 08/18/2018 9:05 AM EDT Temperature - - Respiratory Rate - - Oxygen Saturation 98% 08/18/2018 9:05 AM EDT Inhaled Oxygen Concentration - - Weight 100.7 kg (222 lb) 08/18/2018 9:05 AM EDT Height 188 cm (6' 2) 08/18/2018 9:05 AM EDT Body Mass Index 28.5 08/18/2018 9:05 AM EDT documented in this encounter Progress Notes * Steve Celaya, DO - 08/18/2018 9:00 AM EDT Images from the original note were not included. Section of Cardiology/Cardiac Electrophysiology Clinical Cardiac Electrophysiology Follow Up Patient ID Camacho Flores [id number] Camacho Flores is referred to the EP clinic by inpatient cardiology service / is following up [facility] clinic History Mr. Flores, is a 72 year old gentleman with recent diagnosis of atrial fibrillation diagnosed in late May of 2018. His symptoms are predominantly lightheadedness, dizziness, but no palpitations. He had undergone electrical cardioversion in May but reverted to sinus 1 week later. He had recurrent sy mptoms but this time also with exertional chest pain that prompted inpatient admission. A coronary angiogram showed patient stents (from 2005, 2006) , non- obstructive CAD. He had a ROLAND guided DCCV after 2 doses of Tikosyn load (500 mcg BID) but due to QTc prolongation, his Tikosyn has to be stopped. He remained on Metoprolol tartrate 50 mg BID for rate control and Xarelto for stroke prophylaxis. He is presenting today with his for evaluation of catheter directed ablation towards his AF. He states that he thinks the night of his hospital discharge on August 01, he probably went back into AF. He is debilitated with his AF. No syncope since his discharge. Problem List Patient Active Problem List Diagnosis ??? ASCVD (arteriosclerotic cardiovascular disease) PCI in 2005 at [facility]: stents to LAD x2, LCx x2, ramus ??? Atrial fibrillation Diagnosed 2017, on rivaroxaban, s/p DCCV ??? Hypertension ??? HLD (hyperlipidemia) ??? Chest pain ??? Brain abscess Review of Systems ROS 12 point ROS was discussed and was found to be negative. No bleeding problems. Meds Current Outpatient Prescriptions Medication Sig Dispense Refill ??? aspirin 81 mg Tablet, Delayed Release (E.C.) Take 1 tablet by mouth daily. 30 tablet 3 ??? magnesium oxide (MAG-OX) 400 mg Tablet Take 1 tablet by mouth daily. 30 tablet 12 ??? Brimonidine-Timolol (COMBIGAN) 0.2-0.5 % Drops Apply 1 drop to eye 2 times daily. ??? rivaroxaban (XARELTO) 20 mg Tablet Take 20 mg by mouth daily. ??? atorvastatin (LIPITOR) 10 mg Tablet Take 10 mg by mouth daily. ??? AMIOdarone (CORDARONE; PACERONE) 200 mg Tablet Take 1 tablet by mouth daily. Please take 400 mgtwice a day x 1 wk Then 400 mg daily for 1 wk Then 200 mg daily 120 tablet 3 ??? nitroGLYcerin (NITROSTAT) 0.4 mg Tablet, Sublingual Place 1 tablet under the tongue every 5 minutes as needed for Chest pain. 90 tablet 12 No current facility-administered medications for this visit. Social History Social History Social History ??? Marital status: Spouse name: N/A ??? Number of children: N/A ??? Years of education: N/A Social History Main Topics ??? Smoking status: Never Smoker ??? Smokeless tobacco: Never Used ??? Alcohol use None Comment: 2-3 drinks/night ??? Drug use: No ??? Sexual activity: Not Asked Other Topics Concern ??? 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 Family History Family History Problem Relation Age of Onset ??? Alzheimer Disease Brother Exam Most Recent Vitals: 08/18/18 0905 BP: 112/68 Pulse: 78 SpO2: 98% Physical Exam Gen: Appears well, no acute distress Neck: No JVP elevation Lungs: CTA b/l, no w/r/r Cardiac: Irregular rate and rhythm, S1, S2, no murmurs or gallops, no rubs Abd: Soft, NT/ND, +BS Ext: Warm, no edema Neuro: No focal deficits Skin: Warm, no new rashes MSK: Intact ROM in all extremities I have personally reviewed the ECG: AF rhythm, 59 bpm, QRS 74 ms, QT 410 ms, no brugada, or pre-excitation, no Long QT'. QTc 404 Echo 8/27/18 1. Mild concentric left ventricular hypertrophy is observed. There is normal global left ventricular systolic function. The quantitative left ventricular ejection fraction by biplane Champagne's method is 61%. There are no left ventricular segmental wall motion abnormalities. 2. The right ventricle is normal in size. Right ventricular global systolic function is normal. 3. The left atrium is moderately dilated. The right atrium is mildly dilated. 4. The aortic valve is tricuspid with mild thickening of all cusps. There is no evidence of aortic valve stenosis. There is a trace of aortic regurgitation present. 5. Other details as noted below. 6. IMPRESSION: As compared to the prior echo report from 01/31/2015, there is no significant change. Impression: Mr. Flores is a pleasant 72 year old gentleman with diagnosis of AF since May 2018. He's had 2 cardioversion, last one was during a Tikosyn load but Tikosyn had to be stopped due to prolongation of his QTc. He is appropriately anticoagulated with Xarelto. He has maintained sinus rhythm for probablya day or so after his last cardioversion. He feels quite well in sinus rhythm but during AF very debilitated with lightheadedness, dizziness, gait instability. His inpatient director game shows himin rate controlled AF and relative sinus bradycardia (40-60 bpm) on Metoprolol tart 50 mg BID. It does also appear that he suffers from orthostatic hypotension that is making his symptoms worse. He extensively discussed treatment options for his AF. This includes the importance of stroke prophylaxis. Then rate control and rhythm control as he remains symptomatic with AF with appropriate ventricular rates. We discussed with him details of rhythm control. In that regards use of antiarrhythmic drugs and ablation strategy was reviewed in detail. He has persistent AF. Catheter ablation is a reasonable approach. In that regard we discussed the risks and intended benefits of this procedure. Some patients especially persistent may require more than one attempt at achieving sustained freedom from AF. Major complications from a first procedure - approximately 6% of patients. ~ 1.5 % risk of tamponade, esophageal injury 0.5%, vagus nerve damage < 1%, phrenic nerve damage < 1%, vascular complications ~ 2%, CVA ~ 1%, Pericarditis ~ 20%, 0.1% 15 % of patients have more frequent AF in the post ablation period 20-40% of patients require repeat atrial fibrillation ablation, but this is generally deferred for over three months after the index procedure We also discussed a bridging regimen with Amiodarone until his AF ablation is scheduled to which hewas agreeable. He exhibit some extent of sinus node dysfunction but there were no discrete bradycardic event during his inpatient telemetry monitoring. We will therefore replace his Metoprolol with Amiodarone to avoid excessive dromotropic effects. 1. Persistent symptomatic AF 2. Moderate LA enlargement 3. Stoke risk of 3 (age, HTN, CAD) on Xarelto Recommendations / Plan A) Stop Metoprolol and start Amidarone (400 mg BID loading x 1 wk, followed by 400 mg daily x 1 week then 200 mg daily) B) Schedule for catheter ablation - earliest availability is with Dr. Nelson. In that regard, I spoke with the patient and his about his approach which is targeting the pulmonary veins and the posterior wall en michelle. C) He will continue his Xarelto. Preoperative instructions will be provided regarding his Amiodarone and Xarelto as his ablation date is approaching. D) Contingency for ROLAND. No preoperative CT/MR needed. Above case was discussed with Dr. Nguyen, recommendations reflect our discussion together. Steve Celaya, Cardiac Electrophysiology Fellow Cc: DO Dr. Fred Moffett Dr. Staff addendum: I have seen and evaluated the patient, and reviewed the available medical records. I agree with the findings, physical examination, and assessment of Dr. Celaya as detailed above. Briefly, the patient feels profoundly symptomatic from persistent AF. In light of this, he will stop metoprolol and start amiodarone with outpatient loading to be followed by outpatient DCCV (if needed after the load) all prior to AF ablation with Dr. Nelson since this is the earliest available AFablation lab date. The patient does have some sinus bradycardia and has slow ventricular response in AF, but he does not report symptoms from the bradycardia itself. This plan was discussed with Dr. Nelson and the patient has been scheduled to see him as an outpatient and have AF ablation 10/06 (or sooner pending any cancellations). Komal Nguyen MD 08/18/2018 8:26 PM documented in this encounter Plan of Treatment Upcoming Encounters Date Type Department Care Team (Late st Contact Info) Description 09/08/2024 9:40 AM EDT Office Visit Cardiology at [address] [place] [address] Gonzales Torres MD [facility] [place] [address] documented as of this encounter Procedures Procedure Name Priority Date/Time Associated Diagnosis Comments ELECTROPHYSIOLOGY PROCEDURE Routine 10/20/2018 10:18 AM EST Persistent atrial fibrillation HEPATIC FUNCTION PANEL Routine 8 10:42 AM EDT Persistent atrial fibrillation EKG 12-LEAD Routine 08/18/2018 9:06 AM EDT Persistent atrial fibrillation documented in this encounter Results * ELECTROPHYSIOLOGY PROCEDURE (10/20/2018 10:18 AM EST) Anatomical Region Laterality Modality Other Narrative 10/27/2018 11:22 AM EST Cardiac Electrophysiology Please refer to the operative note filed under the inpatient tab following the completion of this procedure. Kenny Nelson MD EP PROCEDURE ORDERAB LES * Hepatic Function Panel (08/18/2018 10:42 AM EDT) Protein, Total 6.7 6.1 - 8.0 gm/dL [facility] Albumin 3.9 3.2 - 5.2 gm/dL [facility] Aspartate Aminotransferase 19 0 - 39 unit/L [facility] Alanine Aminotransferase 37 0 - 55 unit/L [facility] Alkaline Phosphatase 80 40 - 120 unit/L [facility] Bilirubin, Total 0.5 0.2 - 1.3 mg/dL [facility] Bilirubin, Direct 0.1 0.0 - 0.3 mg/dL [facility] Blood specimen (specimen) 08/18/2018 10:42 AM EDT 08/18/2018 10:58 AM EDT Narrative Resulting Agency Comment Spec In Lab Komal Nguyen MD CHEMISTRY ORDERABLES Performing Organization Address City/[facility] Co de Phone Number [facility] [place] [address] * EKG 12 Lead (08/18/2018 9:06 AM EDT) Ventricular rate 59 BPM MUSE SYSTEM Atrial Rate 340 BPM MUSE SYSTEM QRS Duration 74 ms MUSE SYSTEM Q-T Interval 410 ms MUSE SYSTEM QTC Calculated (Bezet) 405 ms MUSE SYSTEM Calculated R Clarkrange 33 degrees MUSE SYSTEM Calculated T [place] 68 degrees MUSE SYSTEM INTERPRETATION Atrial fibrillation with slow ventricular response Low voltage QRS Nonspecific T wave abnormality , probably digitalis effect Abnormal ECG When compared with ECG of 01-AUG-2018 11:02, Atrial fibrillation has replaced Sinus rhythm Nonspecific T wave abnormality now evident in Inferior leads Confirmed by MD JORI, RIKKI ([id number]) on 08/18/2018 11:34:32 AM MUSE SYSTEM 08/18/2018 9:06 AM EDT 08/18/2018 11:34 AM EDT Komal Nguyen MD ECG ORDERABLES Performing Organization Address City/[facility] Co de Phone Number MUSE SYSTEM documented in this encounter Visit Diagnoses Diagnosis Persistent atrial fibrillation Atrial fibrillation Persistent atrial fibrillation Atrial fibrillation documented in this encounter Care Teams Mechanical Systems Design Engineer Relationship Specialty Start Date End Date Camacho Barrera DO [address] [place] [address] PCP - General Family Medicine 07/01/18 documented as of this encounter
--- OUTSIDE RECORDS SUMMARY | 2024-07-21 19:29 | XMS_ITS | Encounter Summary ---
[place] [address] Care Team Providers Care Marriage Therapist Name Role Phone Camacho Barrera DO Primary Care Provider [phone] Reason for Visit * Reason Onset Date Comments Medication Refill 11/20/2018 Encounter Details Date Type Department Care Team (Late st Contact Info) Description 11/20/2018 Refill Cardiology at [address] [address] Miguel De Los Santos PA [facility] [place] [address] Medication Refill Social History Tobacco Use Types [...] AM EDT Office Visit Cardiology at [address] [place] [phone] Gonzales Torres MD [facility] [place] [address] documented as of this encounter Visit Diagnoses Not on filedocumented in this encounter Care Teams Marriage Therapist Relationship Specialty Start Date End Date Camacho Barrera DO [address] [place] [address] PCP - General Family Medicine 07/01/18 documented as of this encounter
--- OUTSIDE RECORDS SUMMARY | 2024-07-21 19:29 | XMS_ITS | Encounter Summary ---
Author Organization [facility] [place] [address] Care Team Providers Care Night Guard Name Role Phone Camacho Barrera DO Primary Care Provider [phone] Reason for Visit * Auth/Cert Specialty Diagnoses / Procedures Referred By Contac t Referred To Contact Diagnoses Persistent atrial fibrillation AFIB ABLATION Procedures PRO EPHYS EVAL TRANSSEPTAL TX ATRIAL FIB ISOLATATION PULM VEIN PRG ELECTROPHYS EV, R A-V PACE/REC, W/O INDUCT PRG ROLAND REAL TIME IMG 2D W PRB IMG ACQUIS I&R 2 Referral ID Status Reason Start Date Expiration Date Visits Re quested Visits Authorized [id number] 1 1 Encounter Details Date Type Department Care Team (Late st Contact Info) Description 10/20/2018 7:30 AM EST - 10/20/2018 3:30 PM EST Surgery [place] [address] Kenny Nelson MD [facility] [place] [address] ELECTROPHYSIOLOGY PROCEDURE Social History Tobacco Use Types Packs/Day Years [...] Sign Reading Time Taken Comments Blood Pressure 147/102 10/20/2018 6:55 AM EST Pulse 106 10/20/2018 6:55 AM EST Temperature 36.3 ??C (97.3 ??F) 10/20/2018 6:55 AM ES T Respiratory Rate 16 10/20/2018 6:55 AM EST Oxygen Saturation 99% 10/20/2018 6:55 AM EST Inhaled Oxygen Concentration - - Weight 97.5 kg (215 lb) 10/20/2018 6:55 AM EST Height 188 cm (6' 2) 10/20/2018 6:55 AM EST Body Mass Index 28.81 10/20/2018 6:55 AM EST documented in this encounter Discharge Summaries * Miguel De Los Santos PA - 10/21/2018 9:46 AM EST Inpatient Hospital Medicine - Discharge Summary Patient Name: Camacho Flores Patient Age: 72 y.o. Birthdate: 1945 Admit date: 10/20/2018 Discharge date and time: 10/21/2018 1100 Attending Physician: Kenny Nelson MD Discharge Diagnoses (Hospital Problems) and Secondary Diagnoses (Chronic Problems): Active Hospital Problems Diagnosis ??? Status post ablation of atrial fibrillation Resolved Hospital Problems No resolved problems to display. Active Non-Hospital Problems Diagnosis ??? ASCVD (arteriosclerotic cardiovascular disease) PCI in 2005 at [facility]: stents to LAD x2, LCx x2, ramus ??? Atrial fibrillation Diagnosed 2017, on rivaroxaban, s/p DCCV ??? Hypertension ??? HLD (hyperlipidemia) ??? Chest pain ??? Brain abscess Operations/Major Procedures: Atrial fibrillation ablation 10/20/2018 History of Presentation: 72 year old man with history of persistent AF intolerant of dofetilide(QT prolongation), metoprolol(reports profound fatigue and hypotension on 50mg BID) and amiodarone(fatigue). Hospital Course: He was admitted via Same Day on 10/20 and underwent PWI ablation(incomplete). He reports he feels great today and is without his previous indeterminate back pain since coming off amiodarone. He denies chest pain, dyspnea or palpitations. He underwent IV furosemide infusion diuresis overnight and is now euvolemic by I+O. He is stable for discharge to home. Important Studies and Lab Data: Lab Results Component Value Date WBC 13.4 (H) 10/20/2018 HGB 14.7 10/20/2018 HCT 44.3 10/20/2018 PLATELET 245 10/20/2018 Recent Labs 10/20/18 0646 INR 1.1 Lab Results Component Value Date NA 142 10/20/2018 K 4.7 10/20/2018 CL 103 10/20/2018 BUN 20 10/20/2018 CREATININE 1.08 10/20/2018 MAGNESIUM 0.83 07/30/2018 Discharge Conditions/Prognosis: good Discharge to: home Discharge Medications: Your Medications New Medications Dose Details dilTIAZem 120 mg Cp24 Commonly known as: DILTIAZEM CD Take 1 capsule by mouth daily. 120 mg Quantity: 30 capsule Refills: 3 pantoprazole 40 mg Tbec Commonly known as: PROTONIX Take 1 tablet by mouth 2 times daily. 40 mg Quantity: 90 tablet Refills: 3 Continued medications, unchanged Dose Details atorvastatin 10 mg Tab Commonly known as: LIPITOR Take 10 mg by mouth daily. 10 mg Refills: 0 COMBIGAN 0.2-0.5 % Drop Apply 1 drop to eye 2 times daily. Generic drug: Brimonidine-Timolol 1 drop Refills: 0 magnesium oxide 400 mg (241.3 mg magnesium) Tab Commonly known as: MAG-OX Take 1 tablet by mouth daily. 400 mg Quantity: 30 tablet Refills: 12 nitroGLYcerin 0.4 mg Subl Commonly known as: NITROSTAT Place 1 tablet under the tongue every 5 minutes as needed for Chest pain. 0.4 mg Quantity: 90 tablet Refills: 12 rivaroxaban 20 mg Tab Commonly known as: XARELTO Take 20 mg by mouth daily. 20 mg Refills: 0 STOPPED Medications AMIOdarone 200 mg Tab Commonly known as: CORDARONE; PACERONE aspirin 81 mg Tbec chlorhexidine 4 % Liqd Commonly known as: NYLA Instructions Given to Patient at Discharge: Patient Instructions DISCHARGE INSTRUCTIONS FOLLOWING YOUR ABLATION 1. Medications as prescribed. ?? NEW - diltiazem 120mg once daily ?? NEW - pantoprazole 40mg twice daily for 30 days following afib ablation to reduce risk of erosive esophagitis 2. Follow up with Dr. Celaya in about one month, then a Zio patch monitor will be ordered for you in about two months with a follow up visit with Dr. Nelson in three months. You will be contacted with arrangements. 3. Resume anticoagulation(xarelto) as per your home dose. 4. Standard post ablation wound care instructions (see below): Anticoagulation - Xarelto - You have been prescribed anticoagulation to reduce risk of clot formation due to atrial fibrillation/flutter and following the ablation procedure. Catheter Insertion Area Care - You may take a shower if you wish the morning after the procedure. Wash the area with soap and water. - Look for signs of infection over the next several days. - A little spot of blood at the catheter insertion area is not unusual. A bruise or a small lump under the skin is normal; they generally disappear in three or four days. In some cases you may develop a larger bruise that may appear to extend somewhat down your thigh; this is normal and will resolve, generally within 1-2 weeks. - Expect some mild tenderness over the area where the catheter was inserted. This should improve during the 24 to 48 hours after the procedure. - Take Tylenol if needed and contact your doctor if the discomfort worsens. Avoid higher-dose ibuprofen (greater than 400mg twice daily) due to increased bleeding risk while on blood thinners (does not include aspirin). Problems to Watch For If there is bright red blood flowing from the catheter insertion area 1. STOP what you are doing and lie down. 2. Hold pressure steadily on the area for fifteen minutes. 3. Call for help. 4. If the bleeding does not stop in fifteen minutes, call 911. 5. If there is rapid swelling with a ???black and blue?? color at the catheter insertion area, there may be bleeding inside. Call your doctor if there is any increase in size. Check the insertion site for the next few days at home. Signs of infection are: 1. Redness 2. Swelling 3. Yellow, white, green or brown, foul smelling drainage 4. Increased soreness 5. If you think there is an infection, take your temperature. Then call your doctor. The limb on the side where you had the catheter inserted should look and feel normal in its color, sensation and temperature. If your leg becomes cool, pale, blue or changing color with numbness and tingling, contact your doctor. If you feel faint or dizzy, lie down with your feet elevated. Have someone call the doctor. If you are alert, drink fluids. Activity - Do not bend over, strain or lift heavy objects for 48 hours after the procedure. - Do not participate in active sports for 1 week. - Avoid heavy lifting (greater than 10 pounds) for one week following your procedure. Additional discharge instructions: Pt advised to be vigilant for any of the following clinical findings (or anything else out of the ordinary): ?? Bleeding, pain, or swelling at any sheath/catheter insertion site. Sometimes this may develop even days after discharge, and there may then be a need to examine this and alter the anticoagulation medications. It is good to be up and around after the ablation procedure, but heavy lifting and straing should be avoided for the first 3-5 days. ?? Chest discomfort. Inflammation in the form of pericarditis may result in chest pain, which is not uncommon after an ablation procedure for atrial fibrillation. It often may be position-dependent, or will be exacerbated by ventilatory movement. If the patient experiences chest discomfort, it should be medically evaluated to ascertain the significance, and to assess for more serious alternative considerations requiring urgent intervention. If it otherwise is pericarditis, it commonly responds well to anti-inflammatory medication. ?? Atrial dysrhythmias (flutter, fibrillation, tachycardia). Post-procedure atrial dysrhythmias on the basis of temporary inflammation are not uncommon, and are not necessarily indicative of an ineffective procedure... if the dysrhythmia is due to inflammtion, the dysrhythmias likely will cease as the inflammation resolves. The first 1-2 months are the most likely time during which this matter isrelevant. If the patient experiences dysrhythmias, the Cardiac Electrtophysiology Service should becontacted. ?? Side effects of any new medications initiated at the [facility]. The patient should be aware and informed of any significant potential side effects that may be incurred as a result of being on new medication... ?? Sudden weakness, sensory loss, altered behavior or speech. This might be a consequence of a cerbrovascular event (stroke or TIA). This requires urgent and immediate medical attention. ?? Fever or sweats, significant malaise. Possibly a consequence of infection. This requires that the Cardiac Electrophysiology Service be contacted, or otherwise an urgent medical assessment should be obtained. ?? Shortness of breath, increased exertional intolerance. A variety of pulmonary or cardiac processes could be responsible for this. This requires that the Cardiac Electrophysiology Service be contacted, or otherwise an urgent medical assessment should be obtained. ?? Difficulty swallowing, or pain with swallowing. While remote, there nonetheless is a ablation procedural risk of injury to the esophagus; if these symptoms emerge, immediate medical evaluation is urged (with no oral intake pending medical evaluation). This is not an exhaustive list. If the patient experiences anything out of the ordinary post-procedure, he/she is encouraged to contact his/her physician or the Cardiac Electrophysiology Service Triage Nurse ([phone]). General Instructions None Provider Contact Information: Cardiac Electrophysiology [phone] Discharge References/Attachments: Discharge References/Attachments None For questions regarding this document or issues relating to this hospitalization on the Medical Service, please contact your inpatient physician through the [facility] Keyboard Specialist . Issues afterhours and on weekends will be handled by the Hospitalist staff on-call. Signed: documented in this encounter Discharge Instructions * Patient Instructions* Miguel De Los Santos PA - 10/21/2018 9:20 AM EST DISCHARGE INSTRUCTIONS FOLLOWING YOUR ABLATION 1. Medications as prescribed. ?? NEW - diltiazem 120mg once daily ?? NEW - pantoprazole 40mg twice daily for 30 days following afib ablation to reduce risk of erosive esophagitis 2. Follow up with Dr. Celaya in about one month, then a Zio patch monitor will be ordered for you in about two months with a follow up visit with Dr. Nelson in three months. You will be contacted with arrangements. 3. Resume anticoagulation(xarelto) as per your home dose. 4. Standard post ablation wound care instructions (see below): Anticoagulation - Xarelto - You have been prescribed anticoagulation to reduce risk of clot formation due to atrial fibrillation/flutter and following the ablation procedure. Catheter Insertion Area Care - You may take a shower if you wish the morning after the procedure. Wash the area with soap and water. - Look for signs of infection over the next several days. - A little spot of blood at the catheter insertion area is not unusual. A bruise or a small lump under the skin is normal; they generally disappear in three or four days. In some cases you may develop a larger bruise that may appear to extend somewhat down your thigh; this is normal and will resolve, generally within 1-2 weeks. - Expect some mild tenderness over the area where the catheter was inserted. This should improve during the 24 to 48 hours after the procedure. - Take Tylenol if needed and contact your doctor if the discomfort worsens. Avoid higher-dose ibuprofen (greater than 400mg twice daily) due to increased bleeding risk while on blood thinners (does not include aspirin). Problems to Watch For If there is bright red blood flowing from the catheter insertion area 1. STOP what you are doing and lie down. 2. Hold pressure steadily on the area for fifteen minutes. 3. Call for help. 4. If the bleeding does not stop in fifteen minutes, call 911. 5. If there is rapid swelling with a ???black and blue?? color at the catheter insertion area, there may be bleeding inside. Call your doctor if there is any increase in size. Check the insertion site for the next few days at home. Signs of infection are: 1. Redness 2. Swelling 3. Yellow, white, green or brown, foul smelling drainage 4. Increased soreness 5. If you think there is an infection, take your temperature. Then call your doctor. The limb on the side where you had the catheter inserted should look and feel normal in its color, sensation and temperature. If your leg becomes cool, pale, blue or changing color with numbness and tingling, contact your doctor. If you feel faint or dizzy, lie down with your feet elevated. Have someone call the doctor. If you are alert, drink fluids. Activity - Do not bend over, strain or lift heavy objects for 48 hours after the procedure. - Do not participate in active sports for 1 week. - Avoid heavy lifting (greater than 10 pounds) for one week following your procedure. Additional discharge instructions: Pt advised to be vigilant for any of the following clinical findings (or anything else out of the ordinary): ?? Bleeding, pain, or swelling at any sheath/catheter insertion site. Sometimes this may develop even days after discharge, and there may then be a need to examine this and alter the anticoagulation medications. It is good to be up and around after the ablation procedure, but heavy lifting and straing should be avoided for the first 3-5 days. ?? Chest discomfort. Inflammation in the form of pericarditis may result in chest pain, which is not uncommon after an ablation procedure for atrial fibrillation. It often may be position-dependent, or will be exacerbated by ventilatory movement. If the patient experiences chest discomfort, it should be medically evaluated to ascertain the significance, and to assess for more serious alternative considerations requiring urgent intervention. If it otherwise is pericarditis, it commonly responds well to anti-inflammatory medication. ?? Atrial dysrhythmias (flutter, fibrillation, tachycardia). Post-procedure atrial dysrhythmias on the basis of temporary inflammation are not uncommon, and are not necessarily indicative of an ineffective procedure... if the dysrhythmia is due to inflammtion, the dysrhythmias likely will cease as the inflammation resolves. The first 1-2 months are the most likely time during which this matter isrelevant. If the patient experiences dysrhythmias, the Cardiac Electrtophysiology Service should becontacted. ?? Side effects of any new medications initiated at the [facility]. The patient should be aware and informed of any significant potential side effects that may be incurred as a result of being on new medication... ?? Sudden weakness, sensory loss, altered behavior or speech. This might be a consequence of a cerbrovascular event (stroke or TIA). This requires urgent and immediate medical attention. ?? Fever or sweats, significant malaise. Possibly a consequence of infection. This requires that the Cardiac Electrophysiology Service be contacted, or otherwise an urgent medical assessment should be obtained. ?? Shortness of breath, increased exertional intolerance. A variety of pulmonary or cardiac processes could be responsible for this. This requires that the Cardiac Electrophysiology Service be contacted, or otherwise an urgent medical assessment should be obtained. ?? Difficulty swallowing, or pain with swallowing. While remote, there nonetheless is a ablation procedural risk of injury to the esophagus; if these symptoms emerge, immediate medical evaluation is urged (with no oral intake pending medical evaluation). This is not an exhaustive list. If the patient experiences anything out of the ordinary post-procedure, he/she is encouraged to contact his/her physician or the Cardiac Electrophysiology Service Triage Nurse ([phone]). * Attachments The following attachments cannot be sent through Care Everywhere. * EPS (ELECTROPHYSIOLOGY STUDY) AND CATHETER ABLATION: POST-OP (BOLIVIAN) documented in this encounter Medications at Time of Discharge Medication Sig Dispensed Refills Start Date End Date dilTIAZem (DILTIAZEM CD) 120 mg Capsule, Sust. Release 24 hr Take 1 capsule by mouth daily. 30 capsule 3 10/21/2018 12/15/2018 pantoprazole (PROTONIX) 40 mg Tablet, Delayed Release (E.C.) Take 1 tablet by mouth 2 times daily. 90 tablet 3 10/21/2018 10/23/2018 magnesium oxide (MAG-OX) 400 mg Tablet Take [...] daily. 05/21/2023 documented as of this encounter Progress Notes * Holly Alexandre RN - 10/21/2018 1:00 PM EST Pt A+O. No complaints of pain or SOB. Pt SR on tele with PVCs. Pt's lizama removed this morning- 1stvoid was pink tinged with small clots- GAGE De Los Santos notified. PA also aware of bladder scan 244ml. No new orders. Pt's second void was yellow (per [facility] [employer]). All procedure access sites are CDI, soft. Pt denies numbness or tingling. CSM intact. Pt being discharged to home today with via private car.Pt's IVs and tele removed. Pt's AVS given to and gone over with patient, also educational sheets onpost ablation given to and gone over with patient- verbalizes understanding, no questions at this time. Called pt's pharmacy to confirm that they would be open to picker and packer medications. * Miguel De Los Santos PA - 10/21/2018 8:42 AM EST Inpatient Cardiac Electrophysiology Discharge Day Note Patient Name: Camacho Flores Service: EP Responsible Attending: Kenny Nelson MD Reason for continued hospitalization: Atrial fibrillation; POD#1 afib ablation Active Problems: Active Hospital Problems Diagnosis ??? Status post ablation of atrial fibrillation Resolved Hospital Problems No resolved problems to display. Interval History: 72 year old man with history of persistent AF intolerant of dofetilide(QT prolongation), metoprolol(reports profound fatigue and hypotension on 50mg BID) and amiodarone(fatigue). He was admitted via Same Day on 10/20 and underwent PWI ablation(incomplete). He reports he feels great today and is without his previous indeterminate back pain since coming off amiodarone. He denies chest pain, dyspnea or palpitations. He is euvolemic by I+O. This morning he remains on IV furosemide infusion with lizama in place. Review of Systems Constitutional: Negative for chills, diaphoresis, fatigue and fever. Respiratory: Negative for cough, chest tightness and shortness of breath. Cardiovascular: Negative for chest pain, palpitations and leg swelling. Gastrointestinal: Negative for diarrhea, nausea and vomiting. Genitourinary: Negative for dysuria, frequency and hematuria. Neurological: Negative for syncope, speech difficulty and light-headedness. Telemetry: HR: 60-70 sinus rhythm Meds: Scheduled Meds: ??? dilTIAZem 120 mg Oral Daily ??? aspirin 81 mg Oral Daily ??? atorvastatin 10 mg Oral Daily ??? rivaroxaban 20 mg Oral Daily ??? pantoprazole 40 mg Oral BID ??? brimonidine 1 drop Both Eyes BID And ??? timolol 1 drop Both Eyes BID Continuous Infusions: PRN Meds:acetaminophen Physical Exam: Vital Signs: Last value Range last 12 hrs Temperature Temp: 37 ??C (98.6 ??F) Temp: [37 ??C (98.6 ??F)-37.1 ??C (98.8 ??F)] Heart Rate Heart Rate: 65 Heart Rate: [61-69] Blood Pressure BP: 130/71 BP: (106-130)/(60-71) Respiratory Rate Resp: 18 Resp: [18] SpO2 SpO2: 96 % SpO2: [93 %-100 %] Physical Exam Constitutional: He is oriented to person, place, and time. No distress. Neck: No JVD present. RIJ site without hematoma Cardiovascular: Normal rate, regular rhythm, normal heart sounds and intact distal pulses. Pulmonary/Chest: Effort normal and breath sounds normal. Abdominal: Bilateral femoral vein puncture sites without hematoma Musculoskeletal: Normal range of motion. He exhibits no edema. Neurological: He is alert and oriented to person, place, and time. Skin: Skin is warm and dry. He is not diaphoretic. Nursing note and vitals reviewed. Lab Comments: Lab Results Component Value Date WBC 13.4 (H) 10/20/2018 HGB 14.7 10/20/2018 HCT 44.3 10/20/2018 PLATELET 245 10/20/2018 Recent Labs 10/20/18 0646 INR 1.1 Lab Results Component Value Date NA 142 10/20/2018 K 4.7 10/20/2018 CL 103 10/20/2018 BUN 20 10/20/2018 CREATININE 1.08 10/20/2018 MAGNESIUM 0.83 07/30/2018 Pertinent Radiographic/Diagnostic Results: Afib ablation(PWI): 10/20/2018 Prolonged P wave 180 ms, slow left atrial conduction. Posterior wall ablation performed with REBEKA block, however, this required RPV /lorna ablation. LPV and RVP however remained connected despite detailed activation mapping and ablation near the right anteroseptal lorna and near the right IP line/septal confluence. Assessment: Camacho Flores is a 72 y.o. male with hx of persistent afib, now POD#1 afib ablation(PWI). He feels well and is without chest pain or dyspnea. Dr. Celaya discussed study findings and procedural outcome as well as possible ongoing medication and follow up plans. Mr. Flores strongly prefers to avoid restarting amiodarone or metoprolol. He iswilling to trial diltiazem for blood pressure and post ablation arrythmia suppression.He will remain on xarelto. Plan: EP outpatient follow up with Dr. Celaya in about one month Zio patch in two months EP clinic follow up with Dr. Nelson in three months Provider: GAGE Aldridge Provider#: [id number] Consult attending physician: Natasha Avilez MD documented in this encounter H&P Notes * Steve Celaya DO - 10/20/2018 7:17 AM EST Camacho Flores [id number] 10/20/2018 72 y.o. Admission History and Physical PCP: Camacho Barrera DO I performed a history and physical exam of the patient and discussed the management of this patientwith Dr. Nelson. Admission Diagnosis: Symptomatic persistent AF Date of Evaluation: 10/20/2018 Date of Admission: 10/20/2018 Problem List: Active Non-Hospital Problems Diagnosis ??? ASCVD (arteriosclerotic cardiovascular disease) ??? Atrial fibrillation ??? Hypertension ??? HLD (hyperlipidemia) ??? Chest pain ??? Brain abscess HPI: Mr. Flores, is a nice 72 year old male with history of persistent AF diagnosed in late May of 2018.His symptoms are predominantly lightheadedness, dizziness, but no palpitations. He had undergone electrical cardioversion in May but reverted to sinus 1 week later. He had recurrent symptoms but this time also with exertional chest pain that prompted inpatient admission. A coronary angiogram showed patient stents (from 2005, 2006) , non-obstructive CAD. He had a ROLAND guided DCCV after 2 doses of Tikosyn load (500 mcg BID) but due to QTc prolongation, his Tikosyn has to be stopped. He states that he thinks the night of his hospital discharge on August 01, he probably went back into AF. He is debilitated with his AF. He remained on Metoprolol tartrate 50 mg BID for rate control and Xarelto for stroke prophylaxis. When he was seen in clinic, his Metoprolol was stopped and started on Amiodarone. He doesn't think that helped to revert him into SR. Infact, he started experiencing left lower hip pain. 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 Patient was taken off amiodarone 1 week ago for his planned A. fib ablation today and states that his back pain has actually improved since being off amiodarone. Last dose of amiodarone-8 days ago Last dose of Xarelto-stopped for 2 days No changes in health since last evaluation. ROS/PMHx/Fam Hx/Soc Hx: Reviewed, see outpatient note. Physical Exam: Vital signs: BP (!) 147/102 Pulse (!) 106 Temp 36.3 ??C (97.3 ??F) Resp 16 Ht 188 cm (6' 2) Wt 97.5 kg (215 lb) SpO2 99% BMI 27.60 kg/m?? Physical Exam Gen: Appears well, no acute distress Neck: no thyromegaly Lungs: CTA b/l, no w/r/r Cardiac: Irregular rate and rhythm, S1, S2, no murmurs or gallops, no rubs Ext: Warm, no edema Neuro: No focal deficits Skin: Warm, no new rashes MSK: Intact ROM in all extremities Lab (Last 24 Hours): Recent Results (from the past 24 hour(s)) Hemogram Result Value Ref Range WBC 13.4 (H) 4.0 - 9.5 x10(3)/mcL RBC 4.66 4.58 - 5.54 x10(6)/mcL Hemoglobin 14.7 13.7 - 16.5 gm/dL Hematocrit 44.3 40.5 - 48.5 % MCV 95.1 (H) 82.9 - 93.1 fL MCH 31.5 27.5 - 32.1 pg MCHC 33.2 32.0 - 35.7 gm/dL Platelets 245 145 - 357 x10(3)/mcL RDWSD 47.5 (H) 36.0 - 45.0 fL RDWCV 13.5 11.4 - 13.8 % MPV 10.9 7.6 - 12.9 fL nRBC % Auto 0.0 % nRBC Abs Auto 0.000 0.000 - 0.000 x10(3)/mcL ?? Echo 07/27/18 ?? 1. Mild concentric left ventricular hypertrophy is observed. ??There is normal global left ventricular systolic function. ??The quantitative left ventricular ejection fraction by biplane Champagne's method is 61%. ??There are no left ventricular segmental wall motion abnormalities. 2. The right ventricle is normal in size. ??Right ventricular global systolic function is normal. 3. The left atrium is moderately dilated. ??The right atrium is mildly dilated. 4. The aortic valve is tricuspid with mild thickening of all cusps. There is no evidence of aortic valve stenosis. ??There is a trace of aortic regurgitation present. 5. Other details as noted below. 6. IMPRESSION: As compared to the prior echo report from 01/31/2015, there is no significant change. Assessment: 1. Symptomatic persistent atrial fibrillation - unable to tolerate Tikosyn due to prolongation in his QTC, DCCV x 2 with recurrence of atrial fibrillation with a matter of hours or days. However, he did feel improvement in his symptoms during SR Quality of life limitation due to his atrial fibrillation primarily causing shortness of breath and dizziness 2. Moderately enlarged left atrium 3. Anticoagulation status: Xarelto -stopped 2 days ago 4. Antiarrhythmic status: Amiodarone stopped 8 days ago 5. CAD s/p PCI in 2005 6. HTN Plan: 1. The working diagnosis and plan of management was reviewed with the patient. His SHIRLENE is not available right now but will be here in the afternoon. I reviewed the procedural details specifically Dr. Nelson's approach towards isolating the posterior left atrial wall and involved risks related to the planned intervention. Major risk of harm from the procedure: tamponade, esophageal injury (very rare), vascular complications, embolic phenomenon, pericarditis, bleeding, more frequent AF in the post ablation period, possible requirement repeat atrial fibrillation ablation, but this is generally deferred for over three months after the index procedure. The risk of cardiovascular deterioration, arrhythmia and and resuscitative measures were discussed. After detailed discussion informed consent was obtained. Risk of anesthesia has been discussed separately by anesthesia service. All questions were addressed and patient wishes to proceed. Above case was discussed with Dr. Nelson, recommendations reflect our discussion together. Steve Celaya, Cardiac Electrophysiology Fellow The majority of my unit/floor time was spent counseling, and coordinating care for the patient regarding the diagnosis, diagnostic and therapeutic treatment plan. Steve BooikhDO 10/20/2018 documented in this encounter Miscellaneous Notes * Initial Assessments - Jennifer Lovell RN - 10/21/2018 12:43 PM EST Office of Care Management Initial Assessment Jennifer Lovell RN reviewed record and discussed patient with Care Team. Source of Information: Patient and medical record Introduced self/reviewed role; services accepted. Admission order reviewed: # [id number] Date :10/20/2018 Attending of Record upon admission:Leslie Reason for Hospitalization: Ablation of of fib Past Medical History: Diagnosis Date ??? A-fib ??? Brain abscess ??? CAD (coronary artery disease) ??? HLD (hyperlipidemia) ??? HTN (hypertension) Hospitalizations Within the Past 30 Days: None Anticipated Length Of Stay (If known): *1-2 days Current Decision-Making Capacity: Self, A&Ox3, Full Capacity Advance Care Planning: Full Code Received Current Coping/Education/Information Needs: Coping well Current Functional Ability: SBA Functional Status Prior to Admission: Independent Home Environment: lives with has multi level stairs are not an issue [address] [facility] [id number] Social & Family Supports/Community Resources: Extended Emergency Contact Information Primary Emergency Contact: Kisha Flores Address: [address] [place] [address] [facility] Mobile Relation: Spouse Secondary Emergency Contact: Michelle Giron [facility] Relation: Child Behavioral Health History: n/a Substance Use/Abuse: Social History Tobacco Use ??? Smoking status: Never Smoker ??? Smokeless tobacco: Never Used Substance Use Topics ??? Alcohol use: Not on file Comment: 2-3 drinks/night ??? Drug use: No Other Pertinent/Service Specific Information: n/a 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: MEDICARE Payor: MEDICARE / Plan: MEDICARE PART A & B / Product Type: *No Product type* / Secondary Insurance: [facility] Prescription Coverage: yes Preferred Pharmacy: [id number] - [place], [place] - [address] [place] [address] [facility] [address] [facility] [address] Other: Primary Care Provider: Camacho Barrera DO [phone] Patient/Caregiver Goals of Treatment: discharge to home Potential Needs for Transition of Care: discharge to home Rehab/SNF:na Home Health: NA DME: NA Dialysis: NA Community Resources: n/a Transportation: Family or Friend Other: n/a Anticipated Barriers to Discharge/Special Considerations: None Plan: Patient will discharge when medically stable MR for discharge. A member of the Care Management team will continue to monitor progress, follow for continuity of care and assist with transition of care planning. Jennifer Lovell [id number] * Plan of Care - Elizabeth Viveros RN - 10/21/2018 4:22 AM EST Problem: Patient Care Overview Goal: Plan of Care Review Outcome: Ongoing (Interventions Implemented as Appropriate) 10/20/18209910/21/18 0415 Plan of Care Review Progress -- progress toward functional goals as expected Coping/Psychosocial Plan Of Care Reviewed With patient -- OUTCOME EVALUATION NOTE: OUTCOME SUMMARY: Camacho arrived on unit around 2100. Denies any CP/SOB. Bedrest maintained til 2330. Bilateral groinsite dressing clean, dry and intact. Lasix gtt initiated. No bleeding or hematoma. The rest of the night was uneventful, slept through the night between care. Lizama maintained. On RA. Will continue to monitor PLAN MOVING FORWARD: Possible D/C INDIVIDUALIZED FALL PREVENTION INTERVENTIONS: Patient-specific fall risk factors per assessment: [current deficits]: Generalized weakness Assistance [level of assistance required for transfers and ambulation]: SBA Supervision [direct monitoring required during toileting and ADLs]: Eyes on Surveillance [continuous indirect monitoring]: Tele Patient-specific fall prevention interventions for sensory deficits provided, if applicable: [X] Yes CPG GOAL OUTCOME EVALUATION: Ongoing Goal: Fall Prevention-Safe Patient Handling Outcome: Ongoing (Interventions Implemented as Appropriate) 10/20/18 2100 10/21/18 0415 Daily Care Interventions Self-Care Promotion -- BADL personal objects within reach Dunn Fall Risk History of Falling 25 -- Secondary Diagnosis 15 -- Ambulatory Aids 0 -- Intravenous Therapy/Heparin/Saline Lock 20 -- Gait/Transferring 0 -- Mental Status 0 -- Score 60 -- OTHER Dunn Fall Risk High -- Restraint Interventions Safety Promotion/Fall Prevention activity supervised;fall prevention program maintained;nonskid shoes/slippers when out of bed;safety round/check completed -- Positioning Body Position supine, head elevated -- Activity Activity Type activity adjusted per tolerance -- Activity Assistance Provided assistance, stand-by -- Assistive Device Utilized none -- Goal: Infection Control Outcome: Ongoing (Interventions Implemented as Appropriate) 10/20/182099 Safety Interventions Isolation Precautions standard precautions maintained Infection Prevention rest/sleep promoted Coping Strategies Supportive Measures active listening utilized;verbalization of feelings encouraged * Brief Op Note - Steve Celaya DO - 10/20/2018 7:02 PM EST Brief Operative Note Patient Name: Camacho Flores : [id number] MR#: [id number] Case Date: 10/20/2018 Surgeon: Surgeon(s) and Role: Panel 1: * Kenny Nelson MD - Primary * Steve Celaya DO - Fellow * Anup Singleton MD - Fellow Preoperative diagnosis: AFIB ABLATION Postoperative diagnosis: AF ablation, CTI ablation Procedure(s) (LRB): ELECTROPHYSIOLOGY PROCEDURE (N/A) TRANSESOPHAGEAL ECHO DURING CATH/EP PROCEDURE (N/A) Anesthesia: General Findings: Prolonged P wave 180 ms, slow left atrial conduction. Posterior wall ablation performed with REBEKA block, however, this required RPV /lorna ablation. LPV and RVP however remained connected despite detailed activation mapping and ablation near the right anteroseptal lorna and near the right IP line/septal confluence. Complications: none Estimated Blood Loss: * No values recorded between 10/20/2018 12:00 AM and 10/20/2018 7:02 PM * Specimens removed during surgery: None Fluids: Intraprocedure Crystalloid Total None PRBCs: none (See Anesthesia Record/Report for Other Blood Products) Urine Output: 500 mL Drains: none Disposition: awakened from anesthesia, extubated and taken to the recovery room in a stable condition, having suffered no apparent untoward event. Condition: doing well without problems (Please see the Surgical Encounter Summary for any Implant and Specimen details pertinent to this patient.) Infection Bundle used? N/A * Op Note - Kenny Nelson MD - 10/20/2018 7:00 PM EST Electrical Isolation of Right Pulmonary Vein Antra, with Markedly Delayed Conduction into the Leftward Aspct of the Posterior Left Atrium (Atrial Fibrillation Radiofrequency Ablation) and Ablation ofAtrial Tachycardia/Flutter: Electrophysiology Study with Dobutamine Infusion, Transseptal Left Atrial Assessment x 2, Intracardiac Echo Imaging, 3-Dimensional Intracardiac Mapping (CARTO + CARTO-Sound), Direct Current Cardioversions Operators: Steve Celaya DO, and Kenny Nelson MD Indication: Persistent atrial fibrillation Pre-procedure: Anticoagulation : Rivaroxaban discontinued 2 days ago Antiarrhythmic : Amiodarone discontinued 8 days ago Weight (kilograms) : 97.5 [id number] Score : 3 Method: The procedural attending personally reviewed the nature of the procedure, procedural goals,and associated risks and limitations of the planned intervention with the patient. The patient was reminded of anticoagulation plans post-procedure. Other post-procedure issues also were reviewed, such as pericarditis, post-procedure atrial fibrillation related to inflammation in pericarditis, bleeding and thrombus issues, excess fluid, etc. All of his questions were answered. After confirmation of his informed consent, the patient was brought to the biplane Electrophysiology Laboratory in the fasting state. A time out was accomplished. Continuous electrocardiographic monitoring was instituted. General anesthesia and airway management were accomplished by the Anesthesiology Service. Both femoral regions and the right base of the neck were prepared and draped in the usual sterile manner. Local anesthesia was achieved with a 1:1 mixture of 2% lidocaine and 0.5% bupivacaine administered subcutaneously. Using ultrasound venography for guidance, the following hemostatic sheaths (all with sidearms and flushed) were inserted utilizing a modified Seldinger technique under ultrasoundguidance, and electrode catheters were positioned under fluoroscopic guidance as follows: Sheath Catheter Electrodes Insertion Site Target 8 Fr 6 Fr 10 Right internal jugular Coronary sinus 8.5 Fr 7 Fr 20 Right femoral vein Left atrium 11.5 Fr 7.5 Fr 4 Right femoral vein Left atrium 9 Fr 8 Fr ICE Left femoral vein Both atria 5.5 Fr 5 Fr 10 Left femoral vein Right atrium ... esophageal lead w/ 2 cm bipole (with thermistor and Esophastar) (to assess left atrial posterior wall activation timing). ... central venous pressure (monitored via the right internal jugular sheath side arm). ... blood pressure (monitored via radial arterial line) Programmed electrical stimulation, imaging, CARTO 3-dimensional mapping, and radiofrequency ablation were performed as detailed below and digitally archived. Left Atrial Appendage Assessment: The ICE catheter was removed from the 9 Fr sheath, and then deployed through the Agilis sheath for left atrial access. ICE was employed for a careful assessment of the left atrial appendage (imaging at a frequency of 11.5 MHz), during which no thrombus was identified. ICE also was used to generate spatial shells depicting the esophageal volume. The ICE catheter then was removed from the Agilis sheath, and redeployed via the 9 Fr femoral sheath to the right atrium for subsequent use in monitoring the patient's status. Transeptal Access: A heparin infusion was initiated at a rate of 2500 units/hour. The short 8 Hebrew sheaths in the right femoral vein were replaced with long sheaths as follows: A Daig 8.5 Fr SL1 transeptal sheath carefully was advanced over a 0.035 J- tipped guidewire so thatits tip was in the superior vena cava. The guidewire was exchanged for a Brockenbrough needle (BRK tip), which was inserted into the sheath dilator. The tip of the sheath dilator was pulled inferiorly and positioned at the low middle aspect of the foramen ovalis ('leftward tenting at the fossa' wasconfirmed), and then the Brockenbrough needle was advanced into the left atrium guided by the intracardiac echocardiography (ICE) imaging and fluoroscopic views, and over this was advanced the dilator and sheath, taking care to remain posterior and away from the left atrial appendage (MICHAEL); almost s imultaneously, a 7500 unit bolus of heparin was administered. With the needle and dilator withdrawn, the left atrial pressure was assessed via the sheath side arm pressure column to be 17 cm blood; the right atrial pressure at that time was 8 mm Hg. A blood sample sample also was obtained, and the oxygen saturation was measured as 97.9%. An eicosapolar PentaRay catheter was inserted via this SL1 sheath and cautiously advanced into the left atrium (LA) for mapping. Arterial blood gas measurements and iStat chemistries were obtained from the sample drawn at the time of initial transseptal access to the left atrium; these results were within an acceptable rangepH 7.394, pCO2 41.4 mm Hg, pO2 199 mm Hg, HCO3 25.3 mmol/L, Na+ 139 mmol/L, K+ 4.9 mmol/L, iCa++ 1.21 mmol/L, and Hb 12.6 g/dL. Next, a [address] Bright 'Agilis' short curl steerable transeptal sheath was advanced across the fossa via a separate lower and more anterior septal access site utilizing similar technique as was used with the SL1 sheath. The left atrial pressure was assessed via the sheath side arm pressure column, and was 20 cm blood; the right atrial pressure at that time was 9 mm Hg. Another blood samplewas obtained, with the oxygen saturation was measured at 97.7%). Another 5000 unit intravenous bolus of heparin was administered immediately after confirming successful left atrial access. Activated Clotting Times (ACTs) were assessed regularly after entry into the left atrium, and adjustments to the heparin infusion rate and heparin bolus doses were administered to maintain the ACT inthe targeted range (300-400 seconds). A slow continuous heparinized saline flush (10,000 units/liter) was maintained through the sidearms of both transseptal sheaths. Baseline Electrophysiologic Assessment: 1) The baseline rhythm was atrial fibrillation with a ventricular rate of ~75/minute. A direct-current cardioversion (DCCV) was performed via a synchronized 100 Joule biphasic countershock delivered across an external anteroposterior vector, which successfully restored the patient to sinus rhythm. Measurements assessed during sinus rhythm at a cycle length (CL) of 1030 milliseconds (ms) were as follows: AK: 190 ms (P wave duration at least 190 ms) AH: 60 ms HV: 60 ms QRS: 80 ms QT: 450 ms 2) Atrial overdrive pacing (10 mA @ 2 ms) was accomplished from the proximal- most bipole in the coronary sinus (CS), and the atrioventricular (AV) Wenckebach block CL was observed at 520 ms. There was no pre-excitation or conduction aberrancy identified. The [id number] < QRS-QRS just prior to the observed AV Wenckebach block CL, and no echo beats were elicited. 3) Pacing was accomplished from high right ventricular septum, and 1:1 concentric ventriculo-atrial(VA) conduction was present down to a CL of 530 ms. 4) Atrial extrastimulus testing from the most proximal CS bipole was accomplished using an atrial drive train of CL 600 ms (10 mA @ 2 ms); the atrioventricular node fast pathway effective refractory period (ERP) was noted at an S2 coupling interval of 420 ms, and AV node slow pathway ERP was not obs erved since the local atrial ERP of 240 ms (25 mA @ 2 ms) was longer to or equal to that value. No atrial echo beats were observed. Of note, the detected atrial signals from within the CS were diminutive and with minimal upper bandwidth frequency content apparent. 5) A 6 mg intravenous test bolus of adenosine was administered, which was observed to have minimal manifest effect on conduction intervals, and also there was no other obvious effect on the patient'srhythm or ventilatory parameters (no significant AH prolongation, AV conduction block, or change inventilatory pressures). A subsequent 18 mg intravenous bolus of adenosine elicited transient AV conduction block with minimal sinus rate slowing; again there was no apparent impact on ventilatory parameters. 6) Rapid atrial pacing from the posterolateral CS decremented down to a CL of 300 ms elicited atrial re-entry of CL 320 ms. Careful entrainment pacing from near the inferior cavotricuspid isthmus (iCTI) revealed this atrial tachycardia/flutter to be iCTI-dependent. Subsequent efforts to pace-terminate this atrial flutter reulted in acceleration and the subseuqnt emergence of fibrillatory conduction again. Another biphasic 100 Joule DCCV restored sinus rhythm. 7) Dobutamine was infused at a rate of 10 mcg/kg/minute, and the infusion rate subsequently was increased to a maximum infusion rate of 40 mcg/kg/minute (the sinus rate increased to 92/minute). As the dobutamine infusion was terminated, a 30 mg adenosine bolus was administered, after which a pause and subsequent marked sinus rate slowing was observed. No atrial fibrillation (AF) ensued, but increased atrial ectopy and atrial couplets were noted. 8) As the dobutamine effect was dissipating, rapid high output atrial pacing from the most proximalCS bipole was accomplished. Decrementing the atrial pacing to a CL of 260, 240, and 220 ms elicitedat most 1 atrial re-entrant beat, but pacing to a CL of 200 ms elicited atrial tachycardia/flutter of CL 250 ms. This was terminated via a biphasic 100 Joule DCCV due to hypotension. Left Atrial Anatomy and Mapping: A CARTO [employer] ThermoCool SF 8 Fr ablation catheter with bidirectional deflectable 3.5 mm tip (D and F curves) was positioned within the left atrium for mapping and ablation via the Agilis sheath. A left atrial volume was constructed via fast anatomical mapping (using the eicosapolar PentaRay cath eter). A left atrial voltage map simultaneously was acquired, and this also revealed limited areas of scar or atrial regions with very low amplitude electrogram signals (such as adjacent to the left lower pulmonary vein posteriorly). Radiofrequency Ablation: ?? Atypical Flutter Ablation and Electrical Isolation of the Posterior Left Atrium (REBEKA) ?? The esophageal lead was observed in position more adjacent to the posterior antrum of the left pulmonary veins. Extra precautions were observed when ablating inferoposteriorly (unidirectional catheter tip motion with expedited movement along the posterior trajectory and the adjacent esophageal luminal temperature continually was assessed). Cautious radiofrequency ablation was accomplished across the inferoposterior (IP) segment, extending from the inferior left pulmonary vein antrum (LPVA) margin towards the inferoposterior margin of the right pulmonary vein antrum (RPVA), using expedited unidirectional catheter motion and 20 hernandes of delivered power. The 3.7 centimeter (cm) IP segment was ablated with the delivery of 2765 Joules during 2:18 minutes:seconds (m:s) of ablation time before conduction block across that trajectory became evident. Next, starting at the medial extend of the IP segment at the inferior margin of the RPVA, the ablation trajectory was extended towards the septal aspect of the RPVA, up the anteroseptal margin to thesuperior margin delivering up to 30-35 [place] [id number] [place] along this 12.2 cm septal segment was accomplished during 10:15 m:s of ablation time. ?? After that, the SF ablation catheter was placed at the inferior aspect of the LPVA. The rove catheter was used to miguel the tissue edge the lateral left atrial wall and left atrial appendage from the anterior margin of the left pulmonary vein antrum. After this was accomplished, radiofrequency ablation commenced at the inferior margin of the left pulmonary vein antrum (LPVA), and this next ablation trajectory extended up along the previously marked anterior margin edge using increasedpower delivery to as much as 40 hernandes. Delivery of 9711 Joules along 4.7 cm of this leftward segment was accomplished during 5:35 m:s of ablation time. ?? Finally, ablation was accomplished along the 3.0 cm superior segment; the superior segment was ablated with the delivery of 7590 Joules during 3:15 m:s of ablation time, but acute electrical isolation (aEI) of the REBEKA was not achieved upon initial completion of ablation along the entire circumferential ablation trajectory (CAT) along the perimeter of the REBEKA. A combination of local electrogram analysis along the CAT, differential pacing (at sites inside andoutside the REBEKA), and activation mapping were employed to identified sites of electrical continuity(EC) across the CAT. Some of the differential pacing maneuvers were somewhat inhibited due to difficulty achieving reliable local capture at numerous of the CS bipoles, where very low amplitude weak atrial signals were detected. It turned out that there were multiple sites of EC identified that required additional targeted ablation within multiple segments of the CAT, sites at which conduction block was achieved that resulted in altered and further delayed REBEKA activation (also manifest as a widely split atrial electrogram detected via the 2 cm bipole within the adjacent esophagus). Conduction block along the entire perimeter was though to have been achieved after the delivery of a total of [id number] Joules during 26:46 m:s of actual ablation time, but still aEI of the REBEKA was not accomplished due to the existence of presumed epicardial connections within the REBEKA region. Accordingly, REBEKA activation mapping ensued to assess for such connections, along with consideration for REBEKA segmentation. Mapping revealed that the left REBEKA exhibited the latest activations, and the earliest activations were rightward and posterior (at or above the level of the posterior extreme of the lorna between the right pulmonary veins). Limited cautions ablation above the posterior extreme of the right lorna was accomplished, but with no apparent impact on REBEKA activation. Finally, the entire posterior margin of the right pulmonary vein antrum cautiously was ablated (20 hernandes at the lower aspect of this trajectory, increasing to 25-30 hernandes near the roof); even this had no immediate impact on activation times within either side of the REBEKA except for later activations manifest below the right pulmonary vein lorna. Additional mapping and ablation revealed early activations along the [id number] right lorna,as well as higher within the bright pulmonary vein more septally. Carinal ablation and additional ablation along the high posterior margin of the RPVA trajectory finally resulted in substantial delayand aEI of the right upper pulmonary vein, but additioanl ablation on the lower edge of the lorna was necessary to achieve aEI of the right lower pulmonary vein. Interestingly, aEI of the RPVA did no result in any obvious change of activation of the leftward portion of the REBEKA - it continued to exhibited very delayed activation, whereas the expectation had been that aEI of the RPVA would result in aEI of the entire REBEKA. Additional mapping revealed earliest activations yet coming from the area of the posterior RPVA margin. Intraprocedural documentation limitations inhibit creation of a more detailed report at this time, but in summary the operators determined to limit further ablation posteriorly dur to mapping limitations and the disadvantages imposed by unexpectedly having to start this procedure almost 4 hours later than usual. The priority was for patient safety, and also to complete ablatio of the iCTI-dependent atrial flutter elicited earlier during this procedure. Inferior Cavotricuspid Isthmus Dependent Atrial Flutter Ablation The rove catheter and Agilis sheath were withdrawn to the right atrium. During atrial pacing from the proximal CS or low anterolateral tricuspid annulus, ablation was accomplished along the iCTI ablation trajectory at ~6:00 in the SAVITA view. This was a relatively long ablation trajectory. Upon completion of 30-40 watt radiofrequency ablation along this trajectory (which required additional ablation immediately in front of the Eustachian ridge), bidirectional conduction block across the iCTI was achieved. The local electrogram split detected when pacing from either side of the ablation trajectory exceeded 200 ms. Completion of the Procedure: The heparin infusion was discontinued as the catheters and sheaths were withdrawn from the left atrium. All catheters and sheaths were placed in neutral position and cautiously were withdrawn from the heart. Total Fluoroscopy Time: 41.4 minutes, low intensity setting, biplane Dose Area Product: 17070 cGy.cm2 Cumulated Dose: 1120 mGy Total Radiofrequency Energy Delivered: 851102 Joules Total Actual Ablation Time: 54:41 m:s At the conclusion of the procedure, sheaths were removed, and hemostasis was achieved via manual compression (following administration of 40 mg of protamine). The total estimated blood loss was <50 cc (including discards in conjunction with assessing ACT). No intravenous contrast was used duringthis procedure. The total fluid administered during the procedure was 4200 cc, and the urine outputwas 500 cc. The patient tolerated the procedure well, with no apparent acute complications. He was transferred to the recovery area in stable condition with a Lizama catheter yet in place. Results: 0) No left atrial thrombus identified. ?? 1) Acute electrical isolation of the right [...] prolonged at >190 ms (the sinus rhythm AK interval); the post-ablation sinus rhythm P wave duration was >190 ms (the sinus rhythm AK interval). ____ Dr. Nelson was present, and participated in all fried aspects of this procedure; he reviewed archived signals and produced this report. documented in this encounter Plan of Treatment Upcoming Encounters Date Type Department Care Team (Late st Contact Info) Description 09/08/2024 9:40 AM EDT Office Visit Cardiology at [address] [place] [address] Gonzales Torres MD [facility] [place] [address] [address] documented as of this encounter Procedures Procedure Name Priority Date/Time Associated Diagnosis Comments POINT OF CARE BLOOD GAS HISTORICAL Routine 10/20/2018 12:29 PM EST BMP W/FASTING GLUCOSE STAT 10/20/2018 6:46 AM EST SCAN, PERIPHERAL BLOOD STAT 10/20/2018 6:46 AM EST HEMOGRAM STAT 10/20/2018 6:46 AM EST DIFFERENTIAL, AUTOMATED STAT 10/20/2018 6:46 AM EST PROTHROMBIN TIME STAT 10/20/2018 6:46 AM EST CBC (WITH DIFF) STAT 10/20/2018 6:46 AM EST documented in this encounter Results * (ABNORMAL) Point of Care Blood Gas Historical (10/20/2018 12:29 PM EST) pH, POC 7.39 7.35 - 7.45 [facility] pCO2, POC 41 35 - 45 mmHg [facility] pO2, POC 199(H) 85 - 104 mmHg [facility] Base Excess, POC 0.0 -3.0 - 3.0 mmol/L [facility] Bicarbonate, POC 25.3 20.0 - 26.0 mmol/L [facility] Sodium, POC 139 135 - 145 mmol/L [facility] POC Potassium 4.9 3.5 - 5.0 mmol/L [facility] Ionized Calcium, POC 1.21 1.15 - 1.33 mmol/L [facility] POC Hematocrit 37.0(L) 40.0 - 51.0 % [facility] POC Calc Hgb 12.6(L) 13.7 - 17.5 gm/dL [facility] Comment:The calculation of h emoglobin from hematocrit assumes a normal MCHC. POC Bgas Loc CC LAB [facility] Blood specimen (specimen) 10/20/2018 12:29 PM EST 10/23/2018 11:05 AM EST Kenny Nelson MD CHEMISTRY ORDERABLES Performing Organization Address City/[facility]/ZIP Co de Phone Number [facility] [place] [address] * Scan, Peripheral Blood (10/20/2018 6:46 AM EST) [facility] Plat estimate Normal [facility] RBC Morphology Normal [facility] Blood specimen (specimen) 10/20/2018 6:46 AM EST 10/20/2018 7:00 AM EST Narrative Resulting Agency Comment Spec In Lab Steve Celaya DO HEMATOLOGY ORDERABLE S Performing Organization Address City/[facility]/ZIP Co de Phone Number [facility] [place] [address] * (ABNORMAL) Differential, Automated (10/20/2018 6:46 AM EST) [facility] Neutrophil % 37.7 % [facility] Neutrophil Absolute 5.06 1.70 - 6.10 x10(3)/mc L [facility] Lymph % 11.3 % [facility] Lymphocytes Abs 1.5 0.9 - 3.2 x10(3)/mc L [facility] Monocyte % 6.0 % [facility] Monocyte Abs 0.8 0.3 - 0.9 x10(3)/mc L [facility] Eos % 44.4 % [facility] Eosinophils Abs 6.0(H) 0.0 - 0.4 x10(3)/mc L [facility] Basophil % 0.4 % [facility] Baso Absolute 0.1 0.0 - 0.1 x10(3)/ L [facility] Immature Gran % 0.20 % [facility] Comment: Immature granulocytes(IG's)percentage and absolute count will include metamyelocytes, myelocytes, and promyelocytes. Blood smears from CBCs yielding IG's will be scanned manually for concordance. If this scan disagrees with the automated IG or if promyelocytes are noted, a manual differential will be performed. Immature Gran Absolute 0.03 0.00 - 0.04 x10(3)/ L [facility] Blood specimen (specimen) 10/20/2018 6:46 AM EST 10/20/2018 7:00 AM EST Narrative Resulting Agency Comment Spec In Lab Steve Celaya DO HEMATOLOGY ORDERABLE S Performing Organization Address City/State/[facility] Co de Phone Number [facility] [address] * (ABNORMAL) Hemogram (10/20/2018 6:46 AM EST) White Blood Cell 13.4(H) 4.0 - 9.5 x10(3)/[facility] Red Blood Cell 4.66 4.58 - 5.54 x10(6)/ L [facility] Hemoglobin 14.7 13.7 - 16.5 gm/dL [facility] Hematocrit 44.3 40.5 - 48.5 % [facility] Mean Cell Volume 95.1(H) 82.9 - 93.1 fL [facility] Mean Cell Hemoglobin 31.5 27.5 - 32.1 pg [facility] Mean Cell Hemoglobin Concentration 33.2 32.0 - 35.7 gm/dL [facility] Platelet 245 145 - 357 x10(3)/ L [facility] RDW Standard Deviation 47.5(H) 36.0 - 45.0 fL [facility] RDW coefficient of variation 13.5 11.4 - 13.8 % [facility] Mean Platelet Volume 10.9 7.6 - 12.9 fL [facility] NRBC% auto 0.0 % [facility] NRBC Absolute 0.000 0.000 - 0.000 x10(3)/mc L [facility] Blood specimen (specimen) 10/20/2018 6:46 AM EST 10/20/2018 7:00 AM EST Narrative Resulting Agency Comment Spec In Lab Steve Celaya DO HEMATOLOGY ORDERABLE S Performing Organization Address [facility] de Phone Number [facility] [address] * Prothrombin Time (10/20/2018 6:46 AM EST) Prothrombin Time 12.5 9.4 - 12.5 sec [facility] International Normalization Ratio 1.1 [facility] Comment: An INR <2.0 indicates adequate procoagulant activity for hemostasis in most patients without underlying bleeding disorders, though the INR may not adequately reflect hemostatic capacity in patients with liver disease and synthetic impairment. The recommended target INR range for therapeutic anticoagulation is 2.0 ? 3.0 for most applications, though lower and higher ranges may be appropriate depending on clinical circumstances. Blood specimen (specimen) 10/20/2018 6:46 AM EST 10/20/2018 7:00 AM EST Narrative Resulting Agency Comment Spec In Lab Komal Nguyen MD HEMATOLOGY ORDERABLE S Performing Organization Address [facility] Co de Phone Number [facility] [place] [address] * (ABNORMAL) BMP w/fasting Glucose (10/20/2018 6:46 AM EST) Glucose Fasting 121(H) 65 - 99 mg/dL [facility] Comment: ?Fasting* Glucose Interpretive Criteria Normal ?65-99 mg/dL Impaired Fasting glucose ?100-125 mg/dL Consistent with Diabetes Mellitus ? >or= 126 mg/dL *Fasting is defined as no caloric intake for at least 8 hours In the absence of unequivocal hyperglycemia a plasma glucose value of >or= 126 mg/dL should be repeated on a subsequent day. Diagnosis and Classification of Diabetes Mellitus, Position Statement from the [place] [employer]. ??Diabetes Care, Volume 33, Supplement 1, Dec 2009 Blood Urea Nitrogen 20 10 - 20 mg/dL [facility] Creatinine 1.08 0.80 - 1.50 mg/dL [facility] Sodium 142 135 - 145 mmol/L [facility] Potassium 4.7 3.5 - 5.0 mmol/L [facility] Comment: Please note: ??Patients with WBC >100,000 may have falsely elevated Potassium levels. ??For accurate Potassium quantification in these patients send serum separator tube (gold top) for subsequent determinations. ??Contact the Clinical Chemistry Laboratory if there are any questions. Chloride 103 98 - 107 mmol/L [facility] Carbon Dioxide 26 22 - 31 mmol/L [facility] Anion Gap 13 5 - 15 mmol/L [facility] Calcium 9.6 8.5 - 10.5 mg/dL [facility] Est Glomerular Filtration Rate 68 >=60 mL/min/1. 73 m?? [facility] Comment: The eGFR was calculated using the CKD-EPI equation. As with all creatinine based estimates of kidney function, eGFR values calculated with the CKD-EPI equation are not accurate in patients with acute kidney failure, extremes of body mass or the acutely ill. http://[employer]/DHnkf eGFR 79 >=60 mL/min/1. 73 m?? [facility] Comment: The eGFR was calculated using the CKD-EPI equation. As with all creatinine based estimates of kidney function, eGFR values calculated with the CKD-EPI equation are not accurate in patients with acute kidney failure, extremes of body mass or the acutely ill. http://[employer]/DHMCnkf Blood specimen (specimen) 10/20/2018 6:46 AM EST 10/20/2018 7:00 AM EST Narrative Resulting Agency Comment Spec In Lab Komal Nguyen MD CHEMISTRY ORDERABLES [facility] [place] [address] documented in this encounter Visit Diagnoses Diagnosis Persistent atrial fibrillation Atrial fibrillation documented in this encounter Administered Medications Inactive Administered Medications - up to 3 most recent administrations Medication Order MAR Action Action Date Dose Rate Site brimonidine (ALPHAGAN) 0.2 % ophthalmic solution 1 drop 1 drop, Both Eyes, 2 TIMES DAILY, First dose on Fri10/21/18 at 0900, Until Discontinued, Routine BUpivacaine (PF) (MARCAINE) 0.5 % (5 mg/mL) injection 150 mg 150 mg (30 mL), Subcutaneous, ONCE, 1 dose, On Fri10/20/18 at 1230, EP (Intra-Procedure), Routine Given 10/20/2018 10:40 AM EST 150 mg dilTIAZem (DILTIAZEM CD) ER capsule 120 mg 120 mg, Oral, DAILY, First dose on Fri10/21/18 at 0815, Until Discontinued, DO NOT CRUSH OR OPEN, Routine Given 10/21/2018 8:51 AM EST 120 mg furosemide (LASIX) 100 mg in sodium chloride 0.9% 100 mL infusion 5 mg/hr (5 mL/hr), Intravenous, CONTINUOUS, Starting on Fri10/20/18 at 2300, Until Fri10/21/18 at 0815, For goal 3 liters negative by 6 am, Routine New Bag 10/20/2018 10:19 PM EST 5 mg/hr 5 mL /hr lidocaine ((GLYDO)) 2 % gel 10 mL 10 mL, INTRA-URETHRAL, ONCE, 1 dose, On Fri10/20/18 at 1230, EP (Intra-Procedure), Routine Given 10/20/2018 10:20 AM EST 10 mLs lidocaine (XYLOCAINE) 20 mg/mL (2 %) injection 400 mg 400 mg (20 mL), Subcutaneous, ONCE, 1 dose, On Fri10/20/18 at 1230, EP (Intra-Procedure), Routine Given 10/20/2018 10:40 AM EST 400 mg pantoprazole (PROTONIX) tablet 40 mg 40 mg, Oral, 2 TIMES DAILY, First dose on Fri10/20/18 at 2300, Until Discontinued, DO NOT CRUSH OR OPEN Given 10/21/2018 8:51 AM EST 40 mg Given 10/20/2018 10:19 PM EST 40 mg rivaroxaban (XARELTO) tablet 20 mg 20 mg, Oral, DAILY, First dose on Fri10/20/18 at 2300, Until Discontinued, Routine, Restricted anticoagulant, choose the most appropriate response: Approved indication of non-valvular atrial fibrillation Given 10/20/2018 10:19 PM EST 20 mg sodium chloride 0.9 % flush 5 mL 5 mL, Intravenous, EVERY 12 HOURS, First dose on Fri10/20/18 at 0715, Until Discontinued, Day of Surgery (Day of Procedure), Routine Given 10/20/2018 7:15 PM EST 5 mLs timolol (TIMOPTIC) 0.5 % ophthalmic solution 1 drop 1 drop, Both Eyes, 2 TIMES DAILY, First dose on Fri10/21/18 at 0900, Until Discontinued, Routine documented in this encounter Active and Recently Administered Medications Times are shown in EST. Scheduled Medication Order 10/19/2018 10/20/2018 10/21/2018 aspirin EC tablet 81 mg 81 mg, Oral, DAILY, First dose on Fri10/21/18 at 0900, Until Discontinued, Routine 0851 (Not Given - Provider: Holly Alexandre RN - Reason: Patient/family refused) atorvastatin (LIPITOR) tablet 10 mg 10 mg, Oral, DAILY, First dose on Fri10/21/18 at 1700, Until Discontinued, Routine brimonidine (ALPHAGAN) 0.2 % ophthalmic solution 1 drop(Linked Group 1) 1 drop, Both Eyes, 2 TIMES DAILY, First dose on Fri10/21/18 at 0900, Until Discontinued, Routine 0900 (Not Given - Provider: Holly Alexandre RN - Reason: Medication not available) BUpivacaine (PF) (MARCAINE) 0.5 % (5 mg/mL) injection 150 mg (COMPLETED) 150 mg (30 mL), Subcutaneous, ONCE, 1 dose, On Fri10/20/18 at 1230, EP (Intra-Procedure), Routine 1040 (Given - Provider: Munira Kimbrough RN) dilTIAZem (DILTIAZEM CD) ER capsule 120 mg 120 mg, Oral, DAILY, First dose on Fri10/21/18 at 0815, Until Discontinued, DO NOT CRUSH OR OPEN, Routine 0851 (Given - Provid er: Holly Alexandre RN) lidocaine ((GLYDO)) 2 % gel 10 mL (COMPLETED) 10 mL, INTRA-URETHRAL, ONCE, 1 dose, On Fri10/20/18 at 1230, EP (Intra-Procedure), Routine 1020 (Given - Provider: Munira Kimbrough RN) lidocaine (XYLOCAINE) 20 mg/mL (2 %) injection 400 mg (COMPLETED) 400 mg (20 mL), Subcutaneous, ONCE, 1 dose, On Fri10/20/18 at 1230, EP (Intra-Procedure), Routine 1040 (Given - Provider: Munira Kimbrough RN) pantoprazole (PROTONIX) tablet 40 mg 40 mg, Oral, 2 TIMES DAILY, First dose on Fri10/20/18 at 2300, Until Discontinued, DO NOT CRUSH OR OPEN 2218 (Given - Provider: Elizabeth Viveros RN) 0851 (Given - Provider: Holly Alexandre RN) rivaroxaban (XARELTO) tablet 20 mg 20 mg, Oral, DAILY, First dose on Fri10/20/18 at 2300, Until Discontinued, Routine, Restricted anticoagulant, choose the most appropriate response: Approved indication of non-valvular atrial fibrillation 2218 (Given - Provider: Elizabeth Viveros RN) sodium chloride 0.9 % flush 5 mL (CANCELED) 5 mL, Intravenous, EVERY 12 HOURS, First dose on Fri10/20/18 at 0715, Until Discontinued, Day of Surgery (Day of Procedure), Routine 714 (Due)1915 (Given - Provider: Elizabeth Viveros, MORIAH) timolol (TIMOPTIC) 0.5 % ophthalmic solution 1 drop(Linked Group 1) 1 drop, Both Eyes, 2 TIMES DAILY, First dose on Fri10/21/18 at 0900, Until Discontinued, Routine 0900 (Not Given - Provider: Holly Alexandre, RN - Reason: Medication not available) Continuous Medication Order 10/19/2018 10/20/2018 10/21/2018 furosemide (LASIX) 100 mg in sodium chloride 0.9% 100 mL infusion (CANCELED) 5 mg/hr (5 mL/hr), Intravenous, CONTINUOUS, Starting on Fri10/20/18 at 2300, Until Fri10/21/18 at 0815, For goal 3 liters negative by 6 am, Routine 2219 (New Bag - Provider: Elizabeth Viveros RN) 0854 (Stopped - Provider: Holly Alexandre, RN) PRN Medication Order 10/19/2018 10/20/2018 10/21/2018 acetaminophen (TYLENOL) tablet 650 mg 650 mg, Oral, EVERY 4 HOURS PRN, Starting on Fri10/20/18 at 2115, Until Fri10/21/18 at 1506, Pain, Fever, Mild-moderate pain (1-6), maximum daily dose 4 gm, Recovery (Recovery-Hospital Unit), Routine Linked Groups Order Group 1: brimonidine (ALPHAGAN) 0.2 % ophthalmic solution 1 dropJump to med 1 drop, Both Eyes, 2 TIMES DAILY, First dose on Fri10/21/18 at 0900, Until Discontinued, Routine And timolol (TIMOPTIC) 0.5 % ophthalmic solution 1 dropJump to med 1 drop, Both Eyes, 2 TIMES DAILY, First dose on Fri10/21/18 at 0900, Until Discontinued, Routine documented in this encounter Care Teams Night Guard Relationship Specialty Start Date End Date Camacho Barrera DO [address] [place] [id number] PCP - General Family Medicine 07/01/18 documented as of this encounter
--- OUTSIDE RECORDS SUMMARY | 2024-07-21 19:29 | XMS_ITS | Encounter Summary ---
[place] [address] Care Team Providers Care Designer Writer Name Role Phone Camacho Barrera DO Primary Care Provider [phone] Reason for Visit * Reason Onset Date Comments Medication Refill 06/16/2021 Encounter Details Date Type Department Care Team (Late st Contact Info) Description 06/16/2021 Refill Cardiology at [address] [phone] Kenny Nelson MD [facility] [address] Medication Refill Social History Tobacco Use Types [...] 9:40 AM EDT Office Visit Cardiology at [address] [place] [id number] Gonzales Torres MD [facility] [place] [address] documented as of this encounter Visit Diagnoses Diagnosis Paroxysmal atrial fibrillation Atrial fibrillation documented in this encounter Care Teams Designer Writer Relationship Specialty Start Date End Date Camacho Barrera DO [address] [place] [address] PCP - General Family Medicine 07/01/18 documented as of this encounter
--- OUTSIDE RECORDS SUMMARY | 2024-07-21 19:29 | XMS_ITS | Encounter Summary ---
[place] [address] Care Team Providers Care Photoengraving Apprentice Name Role Phone Camacho Barrera DO Primary Care Provider [phone] Reason for Visit * Reason Comments Atrial Fibrillation Follow-up Ekg Encounter Details Date Type Department Care Team (Late st Contact Info) Description 01/27/2019 11:20 AM EST Office Visit Cardiology at [address] [address] Kenny Nelson MD [facility] [address] Paroxysmal atrial fibrillation; Status post ablation of atrial fibrillation Social History Tobacco [...] Sign Reading Time Taken Comments Blood Pressure 145/81 01/27/2019 12:33 PM EST Pulse 56 01/27/2019 12:33 PM EST Temperature - - Respiratory Rate - - Oxygen Saturation 100% 01/27/2019 12:33 PM EST Inhaled Oxygen Concentration - - Weight 99.8 kg (220 lb) 01/27/2019 12:33 PM EST Height 188 cm (6' 2) 01/27/2019 12:33 PM EST Body Mass Index 28.25 01/27/2019 12:33 PM EST documented in this encounter Progress Notes * Kenny Nelson MD - 01/27/2019 11:20 AM EST [facility] [place] Office January 27, 2019 Harness Brusher: Ant Suarez MD Primary Care Physician: Camacho Barrera DO Reason for Visit: Atrial fibrillation Reason for Consultation: Atrial fibrillation Backgound: Mr. Flores is a 66 year old gentleman who suffered from persistent atrial fibrillation (AF) - he underwent a mapping and ablation procedure in October 2018, with the following observationsand accomplishments: > No left atrial thrombus identified. ?? > Acute electrical isolation of the right pulmonary vein antrum, and attempted acute electrical isolation of the remainder of the posterior left atrium (instead resulting in marked delay of activation within the leftward posterior left atrium). Acute electrical isolation of the entire region wasnot achieved (despite apparent conduction block along the perimeter of the posterior left atrium) due to apparent epicardial connections distributed within the posterior left atrium, some of which were along the posterior edge of the right lorna. The intended result was for acute electrical isolation of the entire posterior left atrium. ?? > Inferior cavotricuspid isthmus dependent atrial flutter was the presenting rhythm; this was ablated, with bidirectional conduction block across the inferior cavotricuspid isthmus subsequently demonstrated. ?? > Preserved atrioventricular conduction, with dual atrioventricular node physiology manifest (noatrial echo beats elicited with limited testing). ?? > No finding of an accessory pathway. ?? > The P wave duration post-cardioversion and pre-ablation was prolonged at >190 ms (the sinusrhythm OK interval); the post-ablation sinus rhythm P wave duration was >190 ms (the sinus rhythm OK interval). Amiodarone was discontinued after his procedure, and otherwise he was maintained on rivaroxiban anticoagulation. He reports that his legs remain weak, but he has felt no recurrent symptoms suggestiveof a dysrhythmia. He is not yet very active, but he is interested in becoming better conditioned. Recently he wore a BioArrayo monitor. Past Medical History: 1) Atrial fibrillation (see above) 2) Coronary artery disease > LAD stents x 2 > LCx stents x 2 3) Hypertension 4) Dyslipidemia Allergies & Sensitivities: Bee pollen; Penicillins; Shellfish containing products; Aspirin; Ceftriaxone; Keppra [levetiracetam]; and Simvastatin Medications: As per updated eD list (includes lisinopril 10 mg daily, rivaroxiban 20 mg daily, amiodarone 200 mg daily) Review of Systems: No history of diabetes, TIA, stroke, heart failure; no complaint of exertional angina, presyncope, syncope, claudication. Remainder of interval review of systems was unremarkable. Physical Examination (cursory): Vital Signs: Blood pressure: 145/81 sitting left arm (cuff). Pulse: 56/minute, regular Ventilations: 16/minute, unlabored Weight: 99.8 kg dressed Body mass index: 28.25 kg/m2 General: In no acute distress. Articulate and attentive. Skin: Warm and dry, normal turgor. HEENT: Normocephalic, atraumatic; anicteric sclerae. Neck: No elevated jugulovenous distention upright. Chest: Symmetric chest wall expansion with inspiration. No significant kyphoscoliosis. Lungs: Good air movement. Heart: Regular rate. Abdomen: Nondistended. Extremities: Pulses present. Neurological: Grossly intact. Tests: BioArrayo Monitor (December 21, 2018; analyzed 13 days 21 hours): > The overall sinus rhythm rate range was 44-137/minute, and averaged 62/minute. The predominantunderlying rhythm throughout the monitoring period was conducted sinus rhythm. The slowest heart rates tended to occur overnight, and overall heart rate variation from moment to moment was limited. > No pauses >3 seconds were seen, [...] seconds at a mean rate of 115/minute). > There was a 8.6% burden of isolated [...] manifest (somewhat more prevalent during daytime hours). > The patient wrote in no timed diary entries for symptoms. There were 2 patient-triggered events that corresponded to sinus rhythm with ventricular ectopy +/- supraventricular ectopy. Conclusion: This monitor study was remarkable for sinus rhythm. Occasional nonsustained supraventricular tachycardia runs (without any atrial flutter/fibrillation) and an 8.6% burden of ventricular ectopy were detected. Electrocardiogram (January 27, 2019): Sinus rhythm, ectopic ventricular beat. Assessment: Mr. Flores thus far has done reasonably well subsequent to his ablation procedure. I reviewed what was observed and what was accomplished during his procedure last October, and discussed potential limitations of the procedure (durability of the conduction block across all ablation trajectories, the presence of other tachycardia or fibrillatory substrate, and so on). Vigilance for recurrent dysrhythmias (or suspicious symptoms) is appropriate. For now, continued anticoagulation is recommended. 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 He also expressed significant concern that his weak legs may be a side effect of the rivaroxiban. Recommendations: 1) Zio monitor in 9 months, and then follow up to review the results (sooner as needed). 2) Remain off amiodarone. 3) Continue rivaroxiban (OK to stop for 1 week to see if his legs feel any better or stronger - if not, then he should resume rivaroxiban; if he does fell better off it, then I advised he notify me and I'll start him on different anticoagulation treatment). 4) Increased physical activity discussed, gradual. ____ documented in this encounter Plan of Treatment Upcoming Encounters Date Type Department Care Team (Late st Contact Info) Description 09/08/2024 9:40 AM EDT Office Visit Cardiology at [address] [place] [address] Gonzales Torres MD [facility] [place] [address] documented as of this encounter Procedures Procedure Name Priority Date/Time Associated Diagnosis Comments EKG 12-LEAD Routine 01/27/2019 12:35 PM EST Paroxysmal atrial fibrillation Status post ablation of atrial fibrillation documented in this encounter Results * EKG 12 Lead (01/27/2019 12:35 PM EST) Ventricular rate 58 BPM MUSE SYSTEM Atrial Rate 58 BPM MUSE SYSTEM P-R Interval 158 ms MUSE SYSTEM QRS Duration 72 ms MUSE SYSTEM Q-T Interval 478 ms MUSE SYSTEM QTC Calculated (Bezet) 469 ms MUSE SYSTEM Calculated P [place] 78 degrees MUSE SYSTEM Calculated R [place] 24 degrees MUSE SYSTEM Calculated T [place] 91 degrees MUSE SYSTEM INTERPRETATION Possible wandering atrial pacemaker Occasional Premature ventricular complexes Low voltage QRS Nonspecific T wave abnormality Prolonged QT Abnormal ECG When compared with ECG of 26-NOV-2018 09:59, Premature ventricular complexes are now Present Confirmed by MD WYATT, SABINA ([id number] on 01/27/2019 1:44:28 PM MUSE SYSTEM 01/27/2019 12:3 5 PM EST 01/27/2019 1:44 PM EST Kenny Nelson MD ECG ORDERABLES MUSE SYSTEM documented in this encounter Visit Diagnoses Diagnosis Paroxysmal atrial fibrillation Atrial fibrillation Status post ablation of atrial fibrillation Other postprocedural status documented in this encounter Care Teams Photoengraving Apprentice Relationship Specialty Start Date End Date Camacho Barrera DO [address] [facility] [place] [address] PCP - General Family Medicine 07/01/18 documented as of this encounter
--- OUTSIDE RECORDS SUMMARY | 2024-07-21 19:29 | XMS_ITS | Encounter Summary ---
Author Organization [facility] [place] [address] Care Team Providers Care Biomedical Engineering Internship Name Role Phone Camacho Barrera DO Primary Care Provider [phone] Encounter Details Date Type Department Care Team (Late st Contact Info) Description 10/02/2021 Orders Only Cardiology at [address] [address] Kenny Nelson MD [facility] [place] [address] Paroxysmal atrial fibrillation Social History Tobacco Use [...] Office Visit Cardiology at [address] [place] [address] Gonzales Torres MD [facility] [place] [address] documented as of this encounter Visit Diagnoses Diagnosis Paroxysmal atrial fibrillation Atrial fibrillation documented in this encounter Care Teams Biomedical Engineering Internship Relationship Specialty Start Date End Date Camacho Barrera DO [address] [place] [address] PCP - General Family Medicine 07/01/18 documented as of this encounter
--- OUTSIDE RECORDS SUMMARY | 2024-07-21 19:29 | XMS_ITS | Encounter Summary ---
[place] [address] Care Team Providers Care Maintenance Painter Name Role Phone Camacho Barrera DO Primary Care Provider [phone] Encounter Details Date Type Department Care Team (Late st Contact Info) Description 09/14/2020 Telephone Cardiology at [address] [phone] Giles Moreno RN Social History Tobacco Use Types Packs/Day [...] encounter Miscellaneous Notes * Telephone Encounter - Giles Moreno RN - 09/14/2020 2:41 PM EDT Kandace Rebolledo calling about abnormal Zio report for this patient. Pt wore monitor and it showedprimarily NSR, with a-flutter. He had a total of 2 triggers and 0 diary entries. Longest a-flutter episode lasted 29 min 49 seconds with an average of 156 bpm, Pt had a 1% burden of a-flutter. Max rate while in 174 bpm. Overall average HR for wear time was 71 bpm 0 pauses were seen. This information was sent to Dr. Nelson for his review. documented in this encounter Plan of Treatment Upcoming Encounters Date Type Department Care Team (Late st Contact Info) Description 09/08/2024 9:40 AM EDT Office Visit Cardiology at [address] [address] Gonzales Torres MD [facility] [place] [address] documented as of this encounter Visit Diagnoses Not on filedocumented in this encounter Care Teams Maintenance Painter Relationship Specialty Start Date End Date Camacho Barrera DO [address] [place] [address] PCP - General Family Medicine 07/01/18 documented as of this encounter
--- OUTSIDE RECORDS SUMMARY | 2024-07-21 19:29 | XMS_ITS | Encounter Summary ---
[place] [address] Care Team Providers Care Signal Timer Name Role Phone Camacho Barrera DO Primary Care Provider [phone] Encounter Details Date Type Department Care Team (Late st Contact Info) Description 10/21/2018 Telephone Cardiology at [address] [phone] Maria E Haque, RN Social History Tobacco [...] Notes * Telephone Encounter - Maria E Haque, RN - 10/21/2018 2:36 PM EST TC from Adilene, junior electrical engineer at [facility] w/ question about DC summary that was faxed to them. She noticed that on the summary it says PWI incomplete, wondering if this means it was unsuccessful. Spoke w/ Dr. Nelson who reported that does not necessarily mean procedure was unsuccessful, it is too early to determine whether PWI ablation was officially successful. Notified Adilene that plan is for him to get Zio 2 months after ablation and then f/u w/ Dr. Nelson at 3 month hitesh to determine burden of Afib after procedure. documented in this encounter Plan of Treatment Upcoming Encounters Date Type Department Care Team (Late st Contact Info) Description 09/08/2024 9:40 AM EDT Office Visit Cardiology at [address] [phone] Gonzales Torres MD [facility] [place] [address] documented as of this encounter Visit Diagnoses Not on filedocumented in this encounter Care Teams Signal Timer Relationship Specialty Start Date End Date Camacho Barrera DO [address] [place] [address] PCP - General Family Medicine 07/01/18 documented as of this encounter
--- OUTSIDE RECORDS SUMMARY | 2024-07-21 19:29 | XMS_ITS | Encounter Summary ---
[place] [address] Care Team Providers Care Feed Crusher Operator Name Role Phone Camacoh Barrera DO Primary Care Provider Encounter Details Date Type Department Care Team (Late st Contact Info) Description 11/07/2020 Telephone Cardiology at [address] [phone] Maria E Haque, RN Social History Tobacco [...] Encounter - Maria E Haque, RN - 11/07/2020 2:59 PM EST Called pt to go over medications today per request of Dr. Nelson. Pt began ASA 81 mg daily following 10/09/20 OV. Clarified w/ pt that he is not currently taking Xarelto. He reports that it has been some time since he has been on that medication. Discussed w/ Dr. Nelson who recommends pt begin on Xarelto 20 mg along with the ASA 81 mg Notified pt that it is a once daily medication & that it should be taken with the largest meal of the day. Pt verbalized understanding & agreeable w/ plan. He was encouraged to call w/ any further questions/concerns. documented in this encounter Plan of Treatment Upcoming Encounters Date Type Department Care Team (Late st Contact Info) Description 09/08/2024 9:40 AM EDT Office Visit Cardiology at [address] [phone] Gonzales Torres MD [facility] [place] [address] documented as of this encounter Visit Diagnoses Diagnosis Paroxysmal atrial fibrillation Atrial fibrillation documented in this encounter Care Teams Feed Crusher Operator Relationship Specialty Start Date End Date Camacho Barrera DO [address] [place] [address] PCP - General Family Medicine 07/01/18 documented as of this encounter
--- OUTSIDE RECORDS SUMMARY | 2024-07-21 19:29 | XMS_ITS | Encounter Summary ---
[place] [address] Care Team Providers Care Steel Rule Die Maker Name Role Phone Camacho Barrera DO Primary Care Provider [phone] Reason for Visit * Reason Onset Date Comments Medication Refill 08/18/2018 amiodarone Encounter Details Date Type Department Care Team (Late st Contact Info) Description 08/18/2018 Refill Cardiology at [address] [phone] Kellee Fox, drag sawyer Refill (amiodarone) Social History Tobacco Use Types Packs/Day Years [...] encounter Miscellaneous Notes * Telephone Encounter - Leighann Delgado RN - 08/18/2018 5:41 PM EDT Pt calling to report that the [facility] has not received the prescription for the amiodarone yet and would like it called in. Multiple calls placed to the [facility] pharmacy, no answer. Pt contacted and reports that they must have gotten the order because they have given his some to get him started tonight. Message forwarded to Dr Nguyen to e-scribe the prescription so the pharmacy has the original prescription. * Telephone Encounter - Kellee Fox RN - 08/18/2018 4:19 PM EDT We were notified that the [facility] pharmacy does not have amiodarone in stock for outpatients. The amiodarone prescription has to be sent to the patient's pharmacy: [facility] [place], [place]. New prescription prepared and pended for Dr. Celaya's review/signature/e-scribing. documented in this encounter Plan of Treatment Upcoming Encounters Date Type Department Care Team (Late st Contact Info) Description 09/08/2024 9:40 AM EDT Office Visit Cardiology [address] [phone] Gonzales Torres MD [facility] [place] [address] documented as of this encounter Visit Diagnoses Not on filedocumented in this encounter Care Teams Steel Rule Die Maker Relationship Specialty Start Date End Date Camacho Barrera DO [address] [place] [address] PCP - General Family Medicine 07/01/18 documented as of this encounter
--- OUTSIDE RECORDS SUMMARY | 2024-07-21 19:29 | XMS_ITS | Encounter Summary ---
[place] [address] Care Team Providers Care Airplane Tube Builder Name Role Phone Camacho Barrera DO Primary Care Provider [phone] Reason for Visit * Reason Onset Date Comments Medication Refill 06/14/2021 Encounter Details Date Type Department Care Team (Late st Contact Info) Description 06/14/2021 Refill Cardiology at [address] [phone] Kenny Nelson MD [facility] [place] [address] Medication Refill Social History Tobacco Use Types [...] Cardiology at [address] [place] [phone] Gonzales Torres MD [facility] [place] [address] documented as of this encounter Visit Diagnoses Diagnosis Paroxysmal atrial fibrillation Atrial fibrillation documented in this encounter Care Teams Airplane Tube Builder Relationship Specialty Start Date End Date Camacho Barrera DO [address] [place] [address] PCP - General Family Medicine 07/01/18 documented as of this encounter
--- OUTSIDE RECORDS SUMMARY | 2024-07-21 19:29 | XMS_ITS | Encounter Summary ---
Author Organization [facility] [place] [address] Care Team Providers Care Mixer Operator Tablets Name Role Phone Camacho Barrera DO Primary Care Provider [phone] Encounter Details Date Type Department Care Team (Late st Contact Info) Description 10/09/2020 Orders Only Cardiology at [address] [phone] Mikayla Lemus RN Paroxysmal atrial fibrillation Social History Tobacco Use [...] AM EDT Office Visit Cardiology at [address] [place] [phone] Gonzales Torres MD [facility] [place] [address] documented as of this encounter Results * EKG 12 Lead (10/09/2020 11:49 AM EST) Ventricular rate 69 BPM MUSE SYSTEM Atrial Rate 69 BPM MUSE SYSTEM P-R Interval 146 ms MUSE SYSTEM QRS Duration 80 ms MUSE SYSTEM Q-T Interval 408 ms MUSE SYSTEM QTC Calculated (Bezet) 437 ms MUSE SYSTEM Calculated P [place] 58 degrees MUSE SYSTEM Calculated R [place] 31 degrees MUSE SYSTEM Calculated T [place] 143 degrees MUSE SYSTEM INTERPRETATION Sinus rhythm Occasional Premature ventricular complexes Nonspecific T wave abnormality Abnormal ECG When compared with ECG of 27-JAN-2019 12:35, Previous ECG has undetermined rhythm, needs review T wave inversion now evident in Anterior leads Confirmed by MD PAT, KURTIS ([id number]) on 10/09/2020 1:24:33 PM MUSE SYSTEM 10/09/2020 11:4 9 AM EST 10/09/2020 1:24 PM EST Kenny Nelson MD ECG ORDERABLES MUSE SYSTEM documented in this encounter Visit Diagnoses Diagnosis Paroxysmal atrial fibrillation Atrial fibrillation documented in this encounter Care Teams Mixer Operator Tablets Relationship Specialty Start Date End Date Camacho Barrera DO [address] [place] [address] PCP - General Family Medicine 07/01/18 documented as of this encounter
--- OUTSIDE RECORDS SUMMARY | 2024-07-21 19:29 | XMS_ITS | Encounter Summary ---
Author Organization [facility] [place] [address] Care Team Providers Care Record Tabulating Clerk Name Role Phone Camacho Barrera DO Primary Care Provider [phone] Reason for Visit * Auth/Cert Specialty Diagnoses [...] Expiration Date Visits Re quested Visits Authorized [id number] 1 1 Encounter Details Date Type Department Care Team (Late st Contact Info) Description 10/20/2018 10:05 AM EST Anesthesia Event [place]rophys[place] [address] Jaya Alfonso MD [facility] [place] [address] Steve Hollins CRNA [facility] [place] [address] Anesthesia Record Procedure Summary Procedure Name Responsible Anesthesiologist Anesthesia Start Time Anesthesia Stop Time ELECTROPHYSIOLOGY PROCEDURE Jaya Alfonso MD 10/20/18 1005 10/20/18 1936 Events Date Time Event Comment 10/20/2018 0713 1005 Start 1011 AN Verify 1018 An Start Data 1023 An Induction 1028 An Intubation 1039 Anesthesia Ready 1119 Procedure Start 1133 Break/Relief In Amadeo callaway, DENTAL CLAIMS PROCESSOR 1207 Procedure Stop 1213 Heparin 1225 Heparin 1226 ABG Data Arterial Blood Gas result: pH 7.39 pCO2 41.4 pO2 199 %O2 Sat 99 FiO2 59 HCO3 25.3 BE 0 Hb 12.6 K 4.9 1258 Quick Note 6mg Adenosine g iven by proceduralist 1300 Quick Note 18 mg adenosine given by proceduralist 1450 Break/Relief In Nayla Paulino Bert paulino, DENTAL CLAIMS PROCESSOR 1512 Break/Relief Out 1728 Handoff Intra-procedure anesthesia care was transferred after review of the patient's history, current anesthetic/surgical status and plan, according to the ANES Provider Handoff Checklist. 1848 Handoff Intra-procedure anesthesia care was transferred after review of the patient's history, current anesthetic/surgical status and plan, according to the ANES Provider Handoff Checklist. 1926 Extubation/LMA Out 1929 Transport 192 an stop data 1936 Recovery or ICU Handoff Sandee ent care was transferred to the destination unit staff after review of the patient's medical history, current anesthetic/surgical status and plan, according to the Provider Handoff Checklist. 1936 Stop Meds Name Total Midazolam 2 mg IV Lidocaine 100 mg Propofol 250 mg Rocuronium 160 mg PHENYLephrine 240 mcg ePHEDrine 5 mg Dexamethasone 4 mg Neostigmine 3 mg Glycopyrrolate 0.4 mg Heparin INF 22,666.67 Units PHENYLephrine INF 9,640 mcg Heparin 15,000 Units DOBUTamine INF 42.9 mg Dexmedetomidine 32 mcg Protamine 40 mg Lactated Ringers 1,400 mL Lactated Ringers 1,400 mL * Agents Name O2 Air N2O Sevoflurane (et) * Blood No blood administrations on file. Lines, Drains, and Airways Type Details Placement Removal Incision 01/27/15; parietal region; 07/29/22 (LDA cleanup utility RA#[id number]); 1715 (LDA cleanup utility RA#[id number]) 01/27/15 0000 by Aleja Steel RN 07/29/22 1715 by Pb Bourgeois (RETIRED) PICC Line - Single Lumen 01/28/15; 1405; median cubital vein right (antecubital fossa); LDA not present upon assessment; 05/20/23; 1156 01/28/15 1405 by Sveta Westbrook RN 05/20/23 1156 by Jimbo Montoya NRP (RETIRED) Peripheral IV Line - Single Lumen 10/20/18; 0729; basilic vein (medial side of arm), left; [id number] catheter system; 20 gauge; shelby orozco RN; distraction, intradermal injection, tolerated well, appears comfortable; 10/21/18; 1248 10/20/18 0729 by Chelsey Orozco RN 10/21/18 1248 by Nayla Arredondo Urethral Catheter 10/20/18; 1020; Surg ashley longer than 2 hours; indwelling single lumen catheter; latex; 14; inserted at this facility; 1; 10; 10; intraurethral Xylocaine gel; drainage bag to dependent drainage; urethral catheter removed; 10/21/18; 0850 10/20/18 1020 by Munira Posadas RN 10/21/18 0850 by Nayla Arredondo Arterial Line 10/20/18; 1029; radi al artery, right; 20 gauge; Viri HOOD; Sterile Prep, Sterile Gloves; 10/20/18 (out yesterday per report ); 1800 (out yesterday per report , guessing time) 10/20/18 1029 by Steve Hollins, DENTAL CLAIMS PROCESSOR 10/20/18 1800 by Holly Alexandre, RN (RETIRED) Peripheral IV Line - Single Lumen 10/20/18; 1030; metacarpal vein (top of hand), left; mvgz-sfm-pqpdvq catheter system; 18 gauge; michaela scraper operator; other (see comments), tolerated well; 0; 10/21/18; 1248 10/20/18 1030 by Steve Hollins, DENTAL CLAIMS PROCESSOR 10/21/18 1248 by Nayla Arredondo ETT Mask Ventilation: Ea sy (1); ETT Type: Cuffed; ETT Size: 7.5 mm; Mac Blade: 4; Notes: Asleep, Pre-O2, Cricoid Pressure, Stylette; Attempts: 1; Laryngoscopy Grade: 2; ETT Placement Verified By: Auscultation, Capnometry, Visual; Secured at Teeth: 23 cm; Inserted by: Kentrell RN; Removal Date: 10/20/18; Removal Time: 192510/20/18 103 by Steve Hollins, DENTAL CLAIMS PROCESSOR 10/20/181925 by Deandra Hamilton CRNA LDA Cath/EP Sheath 10/20/18; 1040; 8 Fr ench (Fr) (8F); Right; Internal jugular (RIJ) 10/20/18 1040 by Munira Posadas RN 10/20/18 190 by Komal Bella RN LDA Cath/EP Sheath 10/20/18; 1040; 8 Fr ench (Fr) (8F); Right; Femoral (RFV) 10/20/18 1040 by Munira Posadas RN 10/20/18 190 by Komal Bella RN LDA Cath/EP Sheath 10/20/18; 1040; 8 Fr ench (Fr) (8F); Right; Femoral (LFV) 10/20/18 1040 by Munira Posadas RN 10/20/18 190 by Komal Bella RN LDA Cath/EP Sheath 10/20/18; 1040; 9 Fr ench (Fr) (9F); Left; Femoral (LFV) 10/20/18 1040 by Munira Posadas RN 10/20/18 190 by Komal Bella RN LDA Cath/EP Sheath 10/20/18; 1040; 6.5 Malawian (Fr) (6.5); Left; Femoral (LFV) 10/20/18 1040 by Munira Posadas RN 10/20/18 190 by Komal Bella RN documented in this encounter Social History [...] OR Notes * Anesthesia Postprocedure Evaluation - Jaya Alfonso MD - 10/20/2018 8:01 PM EST [facility] Department of Anesthesiology Post-procedure Note Patient: Camacho Flores Procedure Summary Date: 10/20/18 Room / Location: [facility] B-LAB ROOM 4 / [facility] EP LABS Anesthesia Start: 1005 Anesthesia Stop: 1935 Procedures: ELECTROPHYSIOLOGY PROCEDURE (N/A ) TRANSESOPHAGEAL ECHO DURING CATH/EP PROCEDURE (N/A ) Diagnosis: Persistent atrial fibrillation (AFIB ABLATION) Provider: Kenny Nelson MD; Raffi Badillo MD Responsible Provider: Jaya Alfonso MD Anesthesia Type: general ASA Status: 2 All Anesthesia Providers: Anesthesiologist: Beth Meredith MD; Jaya Alfonso MD DENTAL CLAIMS PROCESSOR: Steve Hollins CRNA; Radhames Will Jr., CRNA; Deandra Hamilton CRNA Most Recent Vitals: 10/20/181933 BP: 123/77 Pulse: 63 Resp: 16 Temp: 36.1 ??C (97 ??F) SpO2: 95% Pain Patient Location: PACU/[facility] Level of Consciousness: Awake and Alert Pain Management: Satisfactory Analgesia PONV: None Cardiovascular Status: At Baseline and Hemodynamically Stable Respiratory Status: Supplemental O2 (NC or FM) and Stable Respiratory Status Postoperative Fluid Status: Intravascular EUvolemia Possible Anesthetic Complications: NONE apparent at time of evaluation Final Primary Anesthesia Type: General (The anesthetic type performed was the same as planned.) Comments: JAYA ALFONSO MD * Anesthesia Preprocedure Evaluation - Beth Meredith MD - 10/20/2018 7:07 AM EST Pre-Anesthesia Evaluation for: Camacho Flores a 72 y.o. male. Procedure(s): ELECTROPHYSIOLOGY PROCEDURE TRANSESOPHAGEAL ECHO DURING CATH/EP PROCEDURE Patient Active Problem List Diagnosis ??? ASCVD (arteriosclerotic cardiovascular disease) PCI in 2005 at [facility]: stents to LAD x2, LCx x2, ramus ??? Atrial fibrillation Diagnosed 2018, on rivaroxaban, s/p DCCV ??? Hypertension ??? HLD (hyperlipidemia) ??? Chest pain ??? Brain abscess Past Medical History: Diagnosis Date ??? A-fib ??? Brain abscess ??? CAD (coronary artery disease) ??? HLD (hyperlipidemia) ??? HTN (hypertension) Past Surgical History: Procedure Laterality Date ??? PRO STEREO BX/ASPIR/EXCIS, INTRACRANIAL LESN Right 01/27/2015 @STEREOTACTIC BX,ASP, OR EXC.-INTRACRANIAL LESION, W/SCAN performed by Jose Small MD at [facility] MAIN OR ??? PRO STEREOTACTIC CPTR ASSTD PX CRANIAL, INTRADURAL Right 01/27/2015 STEREOTACTIC COMPUTER-ASSTD NAVIGATIONAL CRANIAL INTRADURAL performed by Jose Small MD at [facility] MAIN OR Social History Tobacco Use [...] Vomiting SHRIMP only. Blotches, swelling, ??? Aspirin Nosebleeds after 2 weeks of therapy ??? Ceftriaxone leukopenia ??? Keppra [Levetiracetam] leukopenia ??? Simvastatin Myalgia Medications: MAR and/or home medications have been reviewed. Physical Exam: Most Recent Vitals: 10/20/18 0655 BP: (!) 147/102 Pulse: (!) 106 Resp: 16 Temp: 36.3 ??C (97.3 ??F) SpO2: 99% Body mass index is 27.6 kg/m??. Height: 188 cm (6' 2) Weight: 97.5 kg (215 lb) Airway Assessment: Mallampati: II Cardiovascular Assessment: Pulmonary Assessment: Dental Assessment: Misc Assessment: Anesthesia Plan: ASA 2 general, Informed Consent: PAT Staff Note documented in this encounter Plan of Treatment Upcoming Encounters Date Type Department Care Team (Late st Contact Info) Description 09/08/2024 9:40 AM EDT Office Visit Cardiology at [address] [place] [address] Gonzales Torres MD [facility] [place] [address] documented as of this encounter Visit Diagnoses Not on filedocumented in this encounter Administered Medications Inactive Administered Medications - up to 3 most recent administrations Medication Order MAR Action Action Date Dose Rate Site dexamethasone (DECADRON) injection PRN, Starting on Fri10/20/18 at 1050, Until Fri10/20/18 at 2000, Anesthesia Intra-op, Routine Given 10/20/2018 10:50 AM EST 4 mg dexmedetomidine (PRECEDEX) injection PRN, Starting on Fri10/20/18 at 1642, Until Fri10/20/18 at 2000, Anesthesia Intra-op, Routine Given 10/20/2018 5:36 PM EST 8 mcg Given 10/20/2018 5:07 PM EST 4 mcg Given 10/20/2018 5:05 PM EST 4 mcg DOBUTamine 2,000 mcg/mL (standard ADULT & Pedi greater than 20kg) CONTINUOUS PRN, Starting on Fri10/20/18 at 1315, Until Fri10/20/18 at 2000, Anesthesia Intra-op Rate/Dose Change 10/20/2018 1:23 PM EST 40 mcg/kg/min 117 mL/hr Rate/Dose Change 10/20/2018 1:19 PM EST 20 mcg/kg/min 58.5 mL/hr New Bag 10/20/2018 1:15 PM EST 10 mcg/kg/min 29.3 mL/hr ePHEDrine 5 mg/mL multi-dose injection PRN, Starting on Fri10/20/18 at 1029, Until Fri10/20/18 at 2000, Anesthesia Intra-op, Routine Given 10/20/2018 10:29 AM EST 5 mg glycopyrrolate (ROBINUL) multi-dose injection PRN, Starting on Fri10/20/18 at 1902, Until Fri10/20/18 at 2000, Anesthesia Intra-op, Routine Given 10/20/2018 7:02 PM EST 0.4 mg heparin (porcine) injection PRN, Starting on Fri10/20/18 at 1213, Until Fri10/20/18 at 2000, Anesthesia Intra-op, Routine Given 10/20/2018 1:45 PM EST 2,500 Units Given 10/20/2018 12:25 PM EST 5,000 Units Given 10/20/2018 12:13 PM EST 7,500 Units heparin 25,000 units in dextrose 5% 500 mL infusion CONTINUOUS PRN, Starting on Fri10/20/18 at 1105, Until Fri10/20/18 at 2000, Anesthesia Intra-op, Routine Rate/Dose Change 10/20/2018 1:19 PM EST 4,000 Units/hr 80 mL/hr New Bag 10/20/2018 11:05 AM EST 2,000 Units/hr 40 mL/hr lactated Ringers infusion CONTINUOUS PRN, Starting on Fri10/20/18 at 1000, Until Fri10/20/18 at 2000, Anesthesia Intra-op New Bag 10/20/2018 1:30 PM EST New Bag 10/20/2018 10:00 AM EST lactated Ringers infusion CONTINUOUS PRN, Starting on Fri10/20/18 at 1030, Until Fri10/20/18 at 2000, Anesthesia Intra-op New Bag 10/20/2018 10:30 AM EST lidocaine (PF) (XYLOCAINE) 100 mg/5 mL (2 %) injection PRN, Starting on Fri10/20/18 at 1023, Until Fri10/20/18 at 2000, Anesthesia Intra-op, Routine Given 10/20/2018 10:23 AM EST 100 mg midazolam (PF) (VERSED) multi-dose injection PRN, Starting on Fri10/20/18 at 1005, Until Fri10/20/18 at 2000, Anesthesia Intra-op, Routine Given 10/20/2018 10:05 AM EST 2 mg neostigmine (BLOXIVERZ) injection PRN, Starting on Fri10/20/18 at 1902, Until Fri10/20/18 at 2000, Anesthesia Intra-op, Routine Given 10/20/2018 7:02 PM EST 3 mg PHENYLephrine (DEION-SYNEPHRINE) 20 mg in sodium chloride 250 mL (standard ADULT & Pedi greater than 20kg) infusion CONTINUOUS PRN, Starting on Fri10/20/18 at 1114, Until Fri10/20/18 at 2000, Anesthesia Intra-op, Routine Rate/Dose Change 10/20/2018 7:17 PM EST 30 mcg/min 22.5 mL/hr Rate/Dose Change 10/20/2018 6:52 PM EST 50 mcg/min 37.5 mL /hr Rate/Dose Change 10/20/2018 6:30 PM EST 30 mcg/min 22.5 mL /hr PHENYLephrine in NS (PF) (DEION-SYNEPHRINE) 0.8 mg/10 mL (80 mcg/mL) multi-dose injection Syrg PRN, Starting on Fri10/20/18 at 1100, Until Fri10/20/18 at 2000, Anesthesia Intra-op, Routine Given 10/20/2018 1:39 PM EST 160 mcg Given 10/20/2018 11:00 AM EST 80 mcg propofol (DIPRIVAN) 10 mg/mL bolus injection (Anesthesia) PRN, Starting on Fri10/20/18 at 1023, Until Fri10/20/18 at 2000, Anesthesia Intra-op Given 10/20/2018 7:14 PM EST 50 mg Given 10/20/2018 10:27 AM EST 50 mg Given 10/20/2018 10:23 AM EST 150 mg protamine injection PRN, Starting on Fri10/20/18 at 1852, Until Fri10/20/18 at 2000, Anesthesia Intra-op, Routine Given 10/20/2018 6:52 PM EST 40 mg rocuronium (ZEMURON) multi-dose injection PRN, Starting on Fri10/20/18 at 1026, Until Fri10/20/18 at 2000, Anesthesia Intra-op, Routine Given 10/20/2018 4:15 PM EST 20 mg Given 10/20/2018 3:38 PM EST 20 mg Given 10/20/2018 3:06 PM EST 10 mg documented in this encounter Care Teams Record Tabulating Clerk Relationship Specialty Start Date End Date Camacho Barrera DO [address] [place] [id number] PCP - General Family Medicine 07/01/18 documented as of this encounter
--- OUTSIDE RECORDS SUMMARY | 2024-07-21 19:29 | XMS_ITS | Encounter Summary ---
Author Organization [employer], Located Within [facility] [place] [address] Care Team Providers Care Resource Management Planner Name Role Phone Camacho Barrera DO Primary Care Provider [phone] Reason for Visit * Auth/Cert Specialty Diagnoses [...] Expiration Date Visits Re quested Visits Authorized [id number] 1 1 Encounter Details Date Type Department Care Team (Latest Contact Info) Description 10/20/2018 6:12 AM EST - 10/21/2018 1:06 PM [facility] Hospital Encounter Intermediate [place] [address] Kenny Nelson MD [facility] [place] [address] Discharge Disposition: Home Social History Tobacco Use [...] Sign Reading Time Taken Comments Blood Pressure 119/70 10/21/2018 11:22 AM EST Pulse 64 10/21/2018 11:22 AM EST Temperature 37.1 ??C (98.8 ??F) 10/21/2018 1 1:22 AM EST Respiratory Rate 18 10/21/2018 11:2 2 AM EST Oxygen Saturation 100% 10/21/2018 11: 22 AM EST Inhaled Oxygen Concentration - - Weight 101.8 kg (224 lb 6.9 oz) 10/21/2018 4:26 AM EST Height 188 cm (6' 2) [...] or the Cardiac Electrophysiology Service Triage Nurse ([phone]). General Instructions None Provider Contact Information: Cardiac Electrophysiology [phone] Discharge References/Attachments: Discharge References/Attachments None For questions regarding this document or issues relating to this hospitalization on the Medical Service, please contact your inpatient physician through the [facility] . Issues afterhours and on weekends will [...] or the Cardiac Electrophysiology Service Triage Nurse ([phone]). * Attachments The following attachments cannot be sent through Care Everywhere. * EPS (ELECTROPHYSIOLOGY STUDY) AND CATHETER ABLATION: POST-OP (MALAGASY) documented in this encounter Medications at Time [...] orders. Pt's second void was yellow (per AUDIT CONTROL CLERK). All procedure access sites are CDI, soft. [...] confirm that they would be open to pickers material handlers medications. * Miguel De LosS antos PA - 10/21/2018 8:42 AM EST Inpatient [...] in three months Provider: GAGE Aldridge Provider#: [id number] Consult attending physician: Natasha Avilez MD documented in this encounter H&P Notes * Steve Celaya DO - 10/20/2018 7:17 AM EST Camacho Flores [id number] 10/20/2018 72 y.o. Admission History and Physical [...] recommendations reflect our discussion together. Steve Celaya, DO Cardiac Electrophysiology Fellow The majority of my unit/floor time was spent counseling, and coordinating care for the patient regarding the diagnosis, diagnostic and therapeutic treatment plan. Steve Celaya DO 10/20/2018 documented in this encounter Miscellaneous Notes * Initial Assessments - Jennifer Lovell, RN - 10/21/2018 12:43 PM EST Office of Care Management Initial Assessment Jennifer Lovell RN reviewed record and discussed patient with Care Team. Source of Information: Patient and medical record Introduced self/reviewed role; services accepted. Admission order reviewed: # [id number] Date :10/20/2018 Attending of Record upon admission:Leslie [...] level stairs are not an issue [address] [facility] [address] Social & Family Supports/Community Resources: Extended Emergency Contact Information Primary Emergency Contact: Kisha Flores Address: [address] [place] [address] [facility] Mobile Relation: Spouse Secondary Emergency Contact: Michelle Giron [facility] Relation: Child Behavioral Health History: n/a Substance [...] Type: *No Product type* / Secondary Insurance: [employer] [facility] Prescription Coverage: yes Preferred Pharmacy: [facility] - [place], [place] - [address] [facility] [address] [facility] [address] [facility] - [place], [place] - [facility] [address] Other: Primary Care Provider: Camacho Barrera DO [phone] Patient/Caregiver Goals of Treatment: discharge to home [...] OUTCOME SUMMARY: Camacho arrived on unit around 2099. Denies any CP/SOB. Bedrest maintained til 2330. [...] Control Outcome: Ongoing (Interventions Implemented as Appropriate) 10/20/18 2100 Safety Interventions Isolation Precautions standard precautions maintained Infection Prevention rest/sleep promoted Coping Strategies Supportive Measures active listening utilized;verbalization of feelings encouraged * Brief Op Note - Steve Celaya DO - 10/20/2018 7:02 PM EST Brief Operative Note Patient Name: Camacho Flores : [id number] MR#: [id number] Case Date: 10/20/2018 Surgeon: Surgeon(s) and Role: [...] 8 days ago Weight (kilograms) : 97.5 [id number] Score : 3 Method: The procedural attending [...] rate of 2500 units/hour. The short 8 Malay sheaths in the right femoral vein were [...] of 1030 milliseconds (ms) were as follows: KS: 190 ms (P wave duration at least 190 ms) AH: 60 ms HV: 60 ms QRS: 80 ms QT: 450 ms 2) Atrial overdrive pacing (10 mA @ 2 ms) was accomplished from the proximal- most bipole in the coronary sinus (CS), and the atrioventricular (AV) Wenckebach block CL was observed at 520 ms. There was no pre-excitation or conduction aberrancy identified. The [id number] < QRS-QRS just prior to the observed [...] Left Atrial Anatomy and Mapping: A CARTO Dianwoba ThermoCool SF 8 Fr ablation catheter with [...] delivering up to 30-35 [place] [address] Jou[place] along this 12.2 cm septal segment [...] after the delivery of a total of 178011 Joules during 26:46 m:s of actual ablation [...] and ablation revealed early activations along the [id number]-tl-tlqffiuko right lorna,as well as higher within the [...] iCTI ablation trajectory at ~6:00 in the IRAQI view. This was a relatively long ablation [...] low intensity setting, biplane Dose Area Product: 15334 cGy.cm2 Cumulated Dose: 1120 mGy Total Radiofrequency Energy Delivered: 404229 Joules Total Actual Ablation Time: 54:41 m:s [...] prolonged at >190 ms (the sinus rhythm KS interval); the post-ablation sinus rhythm P wave duration was >190 ms (the sinus rhythm KS interval). ____ Dr. Nelson was present, and participated in all fried aspects of this procedure; he reviewed archived signals and produced this report. documented in this encounter Plan of Treatment Upcoming Encounters Date Type Department Care Team (Late st Contact Info) Description 09/08/2024 9:40 AM EDT Office Visit Cardiology at [place] [address] [place] [address] Gonzales Torres MD [facility] [place] [address] [address] documented as of this encounter Procedures Procedure [...] EST) pH, POC 7.39 7.35 - 7.45 [facility] pCO2, POC 41 35 - 45 mmHg [facility] pO2, POC 199(H) 85 - 104 mmHg [facility] Base Excess, POC 0.0 -3.0 - 3.0 mmol/L [facility] Bicarbonate, POC 25.3 20.0 - 26.0 mmol/L [facility] Sodium, POC 139 135 - 145 mmol/L [facility] POC Potassium 4.9 3.5 - 5.0 mmol/L [facility] Ionized Calcium, POC 1.21 1.15 - 1.33 mmol/L [facility] POC Hematocrit 37.0(L) 40.0 - 51.0 % [facility] POC Calc Hgb 12.6(L) 13.7 - 17.5 gm/dL [facility] Comment:The calculation of h emoglobin from hematocrit assumes a normal MCHC. POC Bgas Loc CC LAB [facility] Blood specimen (specimen) 10/20/2018 12:29 PM EST 10/23/2018 11:05 AM EST Kenny Nelson MD CHEMISTRY ORDERABLES Performing Organization Address [facility]/ZIP Co de Phone Number [facility] [place] [address] * Scan, Peripheral Blood (10/20/2018 6:46 AM EST) Pathologist [facility] Plat estimate Normal [facility] RBC Morphology Normal [facility] Blood specimen (specimen) 10/20/2018 6:46 AM EST 10/20/2018 7:00 AM EST Narrative Resulting Agency Comment Spec In Lab Steve Celaya DO HEMATOLOGY ORDERABLE S Performing Organization Address [facility] Co de Phone Number [facility] [place] [address] * (ABNORMAL) Differential, Automated (10/20/2018 6:46 AM EST) Pathologist [facility] Neutrophil % 37.7 % [facility] Neutrophil Absolute 5.06 1.70 - 6.10 x10(3)/mc L [facility] Lymph % 11.3 % [facility] Lymphocytes Abs 1.5 0.9 - 3.2 x10(3)/mc L [facility] Monocyte % 6.0 % [facility] Monocyte Abs 0.8 0.3 - 0.9 x10(3)/mc L [facility] Eos % 44.4 % [facility] Eosinophils Abs 6.0(H) 0.0 - 0.4 x10(3)/mc L [facility] Basophil % 0.4 % [facility] Baso Absolute 0.1 0.0 - 0.1 x10(3)/[facility] Immature Gran % 0.20 % [facility] Comment: Immature granulocytes(IG's)percentage and absolute count will include metamyelocytes, myelocytes, and promyelocytes. Blood smears from CBCs yielding IG's will be scanned manually for concordance. If this scan disagrees with the automated IG or if promyelocytes are noted, a manual differential will be performed. Immature Gran Absolute 0.03 0.00 - 0.04 x10(3)/[facility] Blood specimen (specimen) 10/20/2018 6:46 AM EST 10/20/2018 7:00 AM EST Narrative Resulting Agency Comment Spec In Lab Steve Celaya DO HEMATOLOGY ORDERABLE S Performing Organization Address City/State/[facility] Co de Phone Number [facility] [place] [address] * (ABNORMAL) Hemogram (10/20/2018 6:46 AM EST) White Blood Cell 13.4(H) 4.0 - 9.5 x10(3)/[facility] Red Blood Cell 4.66 4.58 - 5.54 x10(6)/[facility] Hemoglobin 14.7 13.7 - 16.5 gm/dL [facility] Hematocrit 44.3 40.5 - 48.5 % [facility] Mean Cell Volume 95.1(H) 82.9 - 93.1 fL [facility] Mean Cell Hemoglobin 31.5 27.5 - 32.1 pg [facility] Mean Cell Hemoglobin Concentration 33.2 32.0 - 35.7 gm/dL [facility] Platelet 245 145 - 357 x10(3)/[facility] RDW Standard Deviation 47.5(H) 36.0 - 45.0 fL [facility] RDW coefficient of variation 13.5 11.4 - 13.8 % [facility] Mean Platelet Volume 10.9 7.6 - 12.9 fL [facility] NRBC% auto 0.0 % [facility] NRBC Absolute 0.000 0.000 - 0.000 x10(3)/mc L [facility] Blood specimen (specimen) 10/20/2018 6:46 AM EST 10/20/2018 7:00 AM EST Narrative Resulting Agency Comment Spec In Lab Steve Celaya DO HEMATOLOGY ORDERABLE S Performing Organization Address [facility] Co de Phone Number [facility] [place] [address] * Prothrombin Time (10/20/2018 6:46 AM EST) Prothrombin Time 12.5 9.4 - 12.5 sec [facility] International Normalization Ratio 1.1 [facility] Comment: An INR <2.0 [...] MD HEMATOLOGY ORDERABLE S Performing Organization Address City/[facility]/ZIP Co de Phone Number [facility] [place] [address] * (ABNORMAL) BMP w/fasting Glucose (10/20/2018 6:46 AM EST) Glucose Fasting 121(H) 65 - 99 mg/dL [facility] Comment: ?Fasting* Glucose Interpretive [...] of Diabetes Mellitus, Position Statement from the [place] [employer]. ??Diabetes Care, Volume 33, Supplement 1, Dec 2009 Blood Urea Nitrogen 20 10 - 20 mg/dL [facility] Creatinine 1.08 0.80 - 1.50 mg/dL [facility] Sodium 142 135 - 145 mmol/L [facility] Potassium 4.7 3.5 - 5.0 mmol/L [facility] Comment: Please note: ??Patients with WBC >100,000 may have falsely elevated Potassium levels. ??For accurate Potassium quantification in these patients send serum separator tube (gold top) for subsequent determinations. ??Contact the Clinical Chemistry Laboratory if there are any questions. Chloride 103 98 - 107 mmol/L [facility] Carbon Dioxide 26 22 - 31 mmol/L [facility] Anion Gap 13 5 - 15 mmol/L [facility] Calcium 9.6 8.5 - 10.5 mg/dL [facility] Est Glomerular Filtration Rate 68 >=60 mL/min/1. 73 m?? [facility] Comment: The eGFR was calculated using the CKD-EPI equation. As with all creatinine based estimates of kidney function, eGFR values calculated with the CKD-EPI equation are not accurate in patients with acute kidney failure, extremes of body mass or the acutely ill. http://Bixti.com/DHMCnkf eGFR 79 >=60 mL/min/1. 73 m?? [facility] Comment: The eGFR was calculated using the CKD-EPI equation. As with all creatinine based estimates of kidney function, eGFR values calculated with the CKD-EPI equation are not accurate in patients with acute kidney failure, extremes of body mass or the acutely ill. http://[employer]/DHMCnkf Blood specimen (specimen) 10/20/2018 6:46 AM EST 10/20/2018 7:00 AM EST Narrative Resulting Agency Comment Spec In Lab Komal Nguyen MD CHEMISTRY ORDERABLES [facility] [place] [address] documented in this encounter Visit Diagnoses Diagnosis Status post ablation of atrial fibrillation Other postprocedural status documented in this encounter Administered Medications Inactive [...] Discontinued, Routine 0851 (Not Given - Provider: Hloly Alexandre RN - Reason: Patient/family refused) atorvastatin [...] Day of Surgery (Day of Procedure), Routine 07 (Due)1915 (Given - Provider: Elizabeth Viveros RN) timolol (TIMOPTIC) 0.5 % ophthalmic solution 1 [...] Routine documented in this encounter Care Teams Resource Management Planner Relationship Specialty Start Date End Date aCmacho Barrera DO [address] [place] [address] PCP - General Family Medicine 07/01/18 documented as of this encounter
--- OUTSIDE RECORDS SUMMARY | 2024-07-21 19:29 | XMS_ITS | Encounter Summary ---
[place] [address] Care Team Providers Care Repair Service Clerk Name Role Phone Camacho Barrera DO Primary Care Provider [phone] Reason for Visit * Reason Onset Date Comments Questions 10/14/2018 Encounter Details Date Type Department Care Team (Late st Contact Info) Description 10/14/2018 Telephone Cardiology at [address] [address] Maria E Haque, RN Questions Social History Tobacco Use Types Packs/Day Years [...] Encounter - Maria E Haque, RN - 10/14/2018 1:50 PM EST Called pt to clarify medication questions prior to ablation. Notified pt to hold Xarelto for 48 hours (do not take Friday and Friday) Pt reports that he lost his instruction paper and when he found it noticed that he was to stop the amiodarone 10 days prior to procedure, however he has been taking doses up until yesterday (10/13) Pt did not take amiodarone today (10/14), notified him that he should not take any leading up to the procedure from this point forward. Verbal clarification from Dr. Nelson, physician performing ablation, that he can still have procedure on 10/20. Pt also had scans done (Xray of spine & sonogram) done at [facility]. Will request those records. documented in this encounter Plan of Treatment Upcoming Encounters Date Type Department Care Team (Late st Contact Info) Description 09/08/2024 9:40 AM EDT Office Visit Cardiology at [address] [address] Gonzales Torres MD [facility] [place] [address] documented as of this encounter Visit Diagnoses Not on filedocumented in this encounter Care Teams Repair Service Clerk Relationship Specialty Start Date End Date Camacho Barrera DO [address] [place] [address] PCP - General Family Medicine 07/01/18 documented as of this encounter
--- OUTSIDE RECORDS SUMMARY | 2024-07-21 19:29 | XMS_ITS | Encounter Summary ---
[place] [address] Care Team Providers Care Metal Polisher Name Role Phone Camacho Barrera DO Primary Care Provider [phone] Encounter Details Date Type Department Care Team (Late st Contact Info) Description 10/09/2020 11:20 AM EST Office Visit Cardiology at [address] [address] Kenny Nelson MD [facility] [place] [address] Paroxysmal atrial fibrillation Social History Tobacco Use [...] Sign Reading Time Taken Comments Blood Pressure 147/64 10/09/2020 11:42 AM EST Pulse 76 10/09/2020 11:42 AM EST Temperature - - Respiratory Rate - - Oxygen Saturation 100% 10/09/2020 11:42 AM EST Inhaled Oxygen Concentration - - Weight 100.2 kg (221 lb) 10/09/2020 11:42 AM EST Height 188 cm (6' 2) 10/09/2020 11:42 AM EST Body Mass Index 28.37 10/09/2020 11:42 AM EST documented in this encounter Progress Notes * Kenny Nelson MD - 10/09/2020 11:20 AM EST [facility] [place] Office October 09, 2020 (last visit January 27, 2019) Custodial Aide: Ant Suarez MD -> consider Dr. Almodovar closer to home? Primary Care Physician: Camacho Barrera, DO ?? Reason for Visit: Atrial fibrillation, ventricular ectopy Backgound: Mr. Flores is a 74 year old gentleman who previously suffered with persistent atrial fibrillation (AF) - he underwent a mapping and ablation procedure in October 2018 (with the observations and accomplishments listed in the problem list). Amiodarone was discontinued after his procedure in 2017, and otherwise he was maintained on rivaroxiban anticoagulation. He reports that his legs remain weak, but he has felt no recurrent symptoms suggestive of a dysrhythmia. He is not yet very active, but he is interested in becoming better conditioned. He noted that since ~May, he has experienced occasional sporadic instances of mild lightheadednesslasting for up to a few minutes (with no palpitations, presyncope, syncope, or chest pain); these episodes occur at no particular time of the day. He had his pulse checked during one such instance, and it was ~50/minute. His also continues to experience general weakness in the legs. Recently again he wore a Zio monitor (note that on his Zio monitor of December 2018, he had exhibited an 8.6% burden of ventricular ectopy), during which he recalled having no particular symptoms. Overall he has felt well. ?? Past Medical History: 1) Atrial fibrillation (see above) > Dofetilide initiation, direct current cardioversion (July 2018) > Map and ablate (October 2018): : Acute electrical isolation of the??right pulmonary vein antrum, and attempted acute electrical isolation of the remainder of the??posterior left atrium (instead resulting in marked delay of activation within the leftward posterior left atrium).??Acute electrical isolation of the entire region wasnot [...] across the inferior cavotricuspid isthmus subsequently demonstrated. : Preserved atrioventricular conduction, with dual atrioventricular node physiology manifest (no atrial echo beats elicited with limited testing). : No finding of an accessory pathway. : The P wave duration post-cardioversion and pre-ablation was prolonged at??>190??ms (the sinus rhythm WV interval); the post-ablation sinus rhythm P wave duration was??>190??ms (the sinus rhythm WV interval). > Off amiodarone 2) Coronary artery disease - stents (2010) > LAD stents x 2 > LCx stents x 2 3) Hypertension 4) Dyslipidemia 5) Ventricular ectopy > Zio (December 2018): 8.6% burden, 2 morphologies prevalent > Zio (August 2020): 11.8% burden, 2 morphologies prevalent 6) History of brain abscess Allergies & Sensitivities: Bee pollen; Penicillins; Shellfish containing products; Aspirin; Ceftriaxone; Keppra [levetiracetam]; and Simvastatin ?? 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 Review of Systems: No history of diabetes, TIA, stroke, heart failure; no recent complaint of exertional angina, presyncope, syncope, claudication. Remainder of limited review of systems was unremarkable. ?? Physical Examination (cursory): Vital Signs: Blood pressure: 147/64 sitting arm (cuff). Pulse: 76/minute, regular Ventilations: 16/minute, unlabored Weight: 100.2 kg dressed Body mass index: 28.37 kg/m2 General: In no acute distress. Articulate and attentive. Skin: Warm and dry, normal turgor. HEENT: Normocephalic, atraumatic; anicteric sclerae. Neck: No elevated jugulovenous distention upright. Chest: Symmetric chest wall expansion with inspiration. Lungs: Good air movement. Heart: Regular rate. Abdomen: Nondistended. Extremities: Pulses present. Neurological: Grossly intact. Tests: CloudBilto Monitor (August 27, 2020; analyzed 7 days [...] ~12% burden of ventricular ectopy were detected. CloudBilto Monitor (December 21, 2018; analyzed 13 days [...] burden of ventricular ectopy were detected. Electrocardiogram (October 09, 2020): Normal sinus rhythm with supraventricular and ventricular ectopy. Electrocardiogram (January 27, 2019): Sinus rhythm, ectopic ventricular beat. ?? Assessment: Mr. Flores thus far has done reasonably well subsequent to his ablation procedure. More recently, it appears that short episodes of atriual tachycardia/fibrillation are emerging from time to time. I am suspicious that these episodes help to explain the sporadic spells of lightheadedness he has noted, even though he recalled no such symptoms while wearing the CloudBilto monitor. I am concernedthat his burden of atrial tachycardia (flutter) +/- fibrillation may progress, in which case consideration for antiarrhythmic therapy or a follow up mapping and ablation procedure become relevant. Given how he has been feeling overall, he did not think he was at that point as yet. Given that he has coronary stents, I asked him why he is not on daily aspirin. He has not been on it in part due to epistaxis issues in the past when he was taking it. I urged him to resume aspirin 81 mg daily, and to seek assistance from an rotary furnace tender if the epistaxis again becomes an issue. ?? He previously expressed significant concern that his weak legs may be a side effect of the rivaroxiban - I personally did not discuss rivaroxiban with him during this somewhat rushed clinic visit specifically, but in retrospect I would like to have confirmed that in fact he has continued to take it, as previously advised. Recommendations: 1) Start up on aspirin 81 mg daily (if epistaxis bleeding issue, see otolaryngology for help in addressing that matter) 2) Metoprolol succinate 50 mg daily 3) Continue rivaroxaban 4) Arrangements for follow up with Dr. Almodovar (closer to his home) 5) Zio monitor in 6 months, and then follow up here to review the results (sooner as needed). ____ ?? Addendum: I believe there possibly was mention of a stress test at [facility] - I'd like to see that, if indeed it was recent documented in this encounter Plan of Treatment Upcoming Encounters Date Type Department Care Team (Late st Contact Info) Description 09/08/2024 9:40 AM EDT Office Visit Cardiology at [address] [address] Gonzales Torres MD [facility] [place] [address] documented as of this encounter Procedures Procedure Name Priority Date/Time Associated Diagnosis Comments EKG 12-LEAD Routine 10/09/2020 11:49 AM EST Paroxysmal atrial fibrillation documented in this encounter Results * EKG 12 Lead (10/09/2020 11:49 AM EST) Ventricular rate 69 BPM MUSE SYSTEM Atrial Rate 69 BPM MUSE SYSTEM P-R Interval 146 ms MUSE SYSTEM QRS Duration 80 ms MUSE SYSTEM Q-T Interval 408 ms MUSE SYSTEM QTC Calculated (Bezet) 437 ms MUSE SYSTEM Calculated P [place] 58 degrees MUSE SYSTEM Calculated R [place] 31 degrees MUSE SYSTEM Calculated T [place] 143 degrees MUSE SYSTEM INTERPRETATION Sinus rhythm [...] fibrillation documented in this encounter Care Teams Metal Polisher Relationship Specialty Start Date End Date Camacho Barrera DO [address] [place] [address] PCP - General Family Medicine 07/01/18 documented as of this encounter
--- OUTSIDE RECORDS SUMMARY | 2024-07-21 19:29 | XMS_ITS | Encounter Summary ---
Author Organization [facility] [place] [address] Care Team Providers Care Clinical Appeals Rn Name Role Phone Camacho Barrera DO Primary Care Provider [phone] Encounter Details Date Type Department Care Team (Late st Contact Info) Description 12/15/2018 Abstract Cardiology at [address] [phone] Maria E Haque RN Social History Tobacco Use Types Packs/Day [...] AM EDT Office Visit Cardiology at [address] [place] [phone] Gonzales Torres MD [facility] [place] [address] documented as of this encounter Visit Diagnoses Not on filedocumented in this encounter Care Teams Clinical Appeals Rn Relationship Specialty Start Date End Date Camacho Barrera DO [address] [place] [address] PCP - General Family Medicine 07/01/18 documented as of this encounter
--- OUTSIDE RECORDS SUMMARY | 2024-07-21 19:29 | XMS_ITS | Encounter Summary ---
Author [place] [address] Care Team Providers Care Advertising Material Distributor Name Role Phone Camacho Barrera DO Primary Care Provider [phone] Reason for Visit * Reason Onset Date Comments Medication Refill 11/23/2018 Encounter Details Date Type Department Care Team (Late st Contact Info) Description 11/23/2018 Refill Cardiology at [address] [phone] Miguel De Los Santos PA [facility] [place] [address] Medication Refill Social History Tobacco Use Types [...] AM EDT Office Visit Cardiology at [address] [place] [phone] Gonzales Torres MD [facility] [place] [address] documented as of this encounter Visit Diagnoses Not on filedocumented in this encounter Care Teams Advertising Material Distributor Relationship Specialty Start Date End Date Camacho Barrera DO [address] [place] [address] PCP - General Family Medicine 07/01/18 documented as of this encounter
--- OUTSIDE RECORDS SUMMARY | 2024-07-21 19:29 | XMS_ITS | Encounter Summary ---
Author Organization [facility] [place] [address] Care Team Providers Care Emotional Disabilities Teacher Name Role Phone Camacho Barrera DO Primary Care Provider [phone] Encounter Details Date Type Department Care Team (Late st Contact Info) Description 06/20/2019 External Results [place] [id number] Social History Tobacco Use Types Packs/Day Years [...] AM EDT Office Visit Cardiology at [address] [place] [address] Gonzales Torres MD [facility] [place] [address] documented as of this encounter Procedures Procedure Name Priority Date/Time Associated Diagnosis Comments ECG SCAN Routine 06/20/2019 documented in this encounter Results * Scan Doc: ECG (06/20/2019) Historical Provider MEDIA MGR SCAN EX T ORDR/RSLT documented in this encounter Visit Diagnoses Not on filedocumented in this encounter Care Teams Emotional Disabilities Teacher Relationship Specialty Start Date End Date Camacho Barrera DO [address] [place] [address] PCP - General Family Medicine 07/01/18 documented as of this encounter
--- OUTSIDE RECORDS SUMMARY | 2024-07-21 19:29 | XMS_ITS | Encounter Summary ---
[place] [address] Care Team Providers Care Skiver Heel Tap Name Role Phone Camacho Barrera DO Primary Care Provider [phone] Encounter Details Date Type Department Care Team (Late st Contact Info) Description 10/03/2021 11:00 AM EDT Office Visit Cardiology at [address] [address] Kenny Nelson MD [facility] [place] [address] Bell Fairbanks MD [facility] [place] [address] Paroxysmal atrial fibrillation Social History Tobacco Use [...] Sign Reading Time Taken Comments Blood Pressure 120/65 10/03/2021 11:11 AM EDT Pulse 51 10/03/2021 11:11 AM EDT Temperature - - Respiratory Rate - - Oxygen Saturation 100% 10/03/2021 11:11 AM EDT Inhaled Oxygen Concentration - - Weight 98 kg (216 lb) 10/03/2021 11:11 AM EDT Height 188 cm (6' 2) 10/03/2021 11:11 AM EDT Body Mass Index 27.73 10/03/2021 11:11 AM EDT documented in this encounter Progress Notes * Bell Fairbanks MD - 10/03/2021 11:00 AM EDT [facility] CARDIAC ELECTROPHYSIOLOGY CLINIC REFERRING PROVIDER: Camacho Barrera, [facility] [place] [address] PRIMARY CARE PROVIDER: Camacho Barrera DO [address] [place] [address] PATIENT PROFILE: Camacho Flores is a 75 y.o. male who presents today follow up of his AFib. PROBLEM LIST: Patient Active Problem List Diagnosis Code ??? Brain abscess G06.0 ??? ASCVD (arteriosclerotic cardiovascular disease) I25.10 ??? Atrial fibrillation I48.91 ??? Hypertension I10 ??? HLD (hyperlipidemia) E78.5 ??? Chest pain R07.9 ??? Status post ablation of atrial fibrillation Z98.890, Z86.79 ALLERGIES: Allergies Allergen Reactions ??? Bee Pollen Anaphylaxis [...] leukopenia ??? Simvastatin Other (See Comments) Myalgia MEDICATIONS: Current Outpatient Medications Medication Sig Dispense Refill ??? AMIOdarone (Paceron) 200 mg Tablet Take 200 mg by mouth 2 times daily. ??? rivaroxaban (Xarelto) 20 mg Tablet Take 1 tablet by mouth daily. 90 tablet 1 ??? metoprolol succinate XL (Toprol-XL) 50 mg Tablet Sustained Release 24 hr Take 1 tablet by mouthdaily. (Patient taking differently: Take 25 mg by mouth daily.) 30 tablet 11 ??? lisinopril (PRINIVIL;ZESTRIL) 10 mg Tablet Take 20 mg by mouth daily. ??? nitroGLYcerin (NITROSTAT) 0.4 mg Tablet, Sublingual Place 1 tablet under the tongue every 5 minutes as needed for Chest pain. 90 tablet 12 ??? Brimonidine-Timolol (COMBIGAN) 0.2-0.5 % Drops Apply 1 drop to eye 2 times daily. ??? atorvastatin (LIPITOR) 10 mg Tablet Take 10 mg by mouth daily. No current facility-administered medications for this visit. HISTORY OF PRESENT ILLNESS: Camacho Flores is a 75 y.o. male with a history of atrial fibrillation diagnosed in 2018 s/p posterior wall ablation 2017 (see results below) who presents for follow up of AFib. Per Steve's last visit in 2018: 73 year old gentleman with recent diagnosis of atrial fibrillation diagnosed in late May of 2018.His symptoms are predominantly lightheadedness, dizziness, but no palpitations. He had undergone electrical cardioversion in July but reverted to AF 1 week later. He had recurrent symptoms but thistime also with exertional chest pain that prompted inpatient admission. A coronary angiogram showedpatient stents (from 2005, 2006) , non-obstructive CAD. He had a ROLAND guided DCCV after 2 doses of Tikosyn load (500 mcg BID) but due to QTc prolongation, his Tikosyn had to be stopped. He remained onMetoprolol tartrate 50 mg BID for rate control and Xarelto for stroke prophylaxis. Since the ablation, patient reports doing well until last week. During that time he had no AFib episodes. Last week, in the setting of stress, he had noted HR 130 with mild presyncope. He presented to [facility] and ECG confirmed AF and he was started on amiodarone 800 mg daily for several days (Dr. Thomas). The next day, he was in sinus rhythm. He is 200 mg daily today. Amiodarone start date was 09/27/21. No other health changes 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: A 10-point review of systems was completed. Outside of the items noted in the history of present illness, the ROS was negative. PAST SURGICAL HISTORY: Past Surgical History: Procedure Laterality Date ??? PRO STEREO BX/ASPIR/EXCIS, INTRACRANIAL LESN Right 01/27/2015 @STEREOTACTIC BX,ASP, OR EXC.-INTRACRANIAL LESION, W/SCAN performed by Jose Small MD at [facility] MAIN OR ??? PRO STEREOTACTIC CPTR ASSTD PX CRANIAL, INTRADURAL Right 01/27/2015 STEREOTACTIC COMPUTER-ASSTD NAVIGATIONAL CRANIAL INTRADURAL performed by Jose Small MD at [facility] MAIN OR FAMILY HISTORY: Family History Problem Relation Age of Onset ??? Alzheimer Disease Brother SOCIAL HISTORY: Social History Socioeconomic History ??? Marital status: [...] at [facility], lives with in [facility]. Social Determinants of Health Financial Resource Strain: ??? Difficulty of Paying Living Expenses: Not on file Food Insecurity: ??? Worried About Running Out of Food in the Last Year: Not on file ??? Ran Out of Food in the Last Year: Not on file Transportation Needs: ??? Lack of Transportation (Medical): Not on file ??? Lack of Transportation (Non-Medical): Not on file Physical Activity: ??? Days of Exercise per Week: Not on file ??? Minutes of Exercise per Session: Not on file Housing Stability: ??? Unable to Pay for Housing in the Last Year: Not on file ??? Number of Places Lived in the Last Year: Not on file ??? Unstable Housing in the Last Year: Not on file PHYSICAL EXAM: Vital Signs: BP 120/65 Pulse 51 Ht 188 cm (6' 2) Wt 98 kg (216 lb) SpO2 100% BMI 27.73 kg/m?? General appearance: He appears well, in no apparent distress Neurological: alert, oriented, normal speech, no focal findings or movement disorder noted Lungs: clear to auscultation, no wheezes, rales or rhonchi, symmetric air entry CV: normal rate, regular rhythm, normal S1, S2, no murmurs, rubs, clicks or gallops. Abdomen: soft, nontender, nondistended, no masses or organomegaly Musculoskeletal: Moves all extremities. Ambulates without Difficulty Extremities: peripheral pulses normal, no pedal edema, no clubbing or cyanosis ACCESSORY CLINICAL FINDINGS: 12 lead EKG today demonstrated The intervals were as follows: sinus bradycardia 50 bpm CO 172, QRS duration 80, and corrected QT [address] Nelson 2017 Results: ?? 0) No left atrial thrombus identified. ?? [...] prolonged at >190 ms (the sinus rhythm CO interval); the post-ablation sinus rhythm P wave duration was >190 ms (the sinus rhythm CO interval). Laboratory Data: Lab Results Component Value Date WBC 13.4 (H) 10/20/2018 HGB 14.7 10/20/2018 HCT 37.0 (L) 10/20/2018 MCV 95.1 (H) 10/20/2018 Lab Results Component Value Date NA 142 10/20/2018 K 4.7 10/20/2018 CL 103 10/20/2018 CO2 26 10/20/2018 BUN 20 10/20/2018 CREATININE 1.08 10/20/2018 GLUCOSE 118 07/26/2018 GLUCFASTING 121 (H) 10/20/2018 CALCIUM 9.6 10/20/2018 ESTGFR 68 10/20/2018 Lab Results Component Value Date TSH 3.98 07/26/2018 Lab Results Component Value Date INR 1.1 10/20/2018 INR 1.2 07/26/2018 INR 1.1 01/27/2015 IMPRESSION: Mr. Flores presents for AFib follow up today. His [id number] is 2, he is on xarelto and metoprolol 50 mg daily. Currently on amiodarone. We discussed that patient had three options for his AF: 1. Stopamiodarone and see how he does, 2. Consider class III agent again (had QTc prolongation last time) or continue amiodarone or 3. Consider repeat EPS/posteriorwall isolation. Given that he has largely done with the except of several days last week, he wanted to stop the amiodarone for now and see howhe progress. If he has recurrent AFib he will call and we can discuss next steps. He can otherwise continue his medications. He will stop amiodarone tonight. Otherwise, RTC in one year. Discussed with Dr. Nelson . documented in this encounter Plan of Treatment Upcoming Encounters Date Type Department Care Team (Late st Contact Info) Description 09/08/2024 9:40 AM EDT Office Visit Cardiology at [address] [place] [phone] Gonzales Torres MD [facility] [place] [address] documented as of this encounter Procedures Procedure Name Priority Date/Time Associated Diagnosis Comments EKG 12-LEAD Routine 10/03/2021 11:16 AM EDT Paroxysmal atrial fibrillation documented in this encounter Results * EKG 12 Lead (10/03/2021 11:16 AM EDT) Ventricular rate 48 BPM MUSE SYSTEM Atrial Rate 48 BPM MUSE SYSTEM P-R Interval 172 ms MUSE SYSTEM QRS Duration 80 ms MUSE SYSTEM Q-T Interval 508 ms MUSE SYSTEM QTC Calculated (Bezet) 453 ms MUSE SYSTEM Calculated P [place] 58 degrees MUSE SYSTEM Calculated R [place] 64 degrees MUSE SYSTEM Calculated T [place] 105 degrees MUSE SYSTEM INTERPRETATION Sinus bradycardia with sinus arrhythmia Low voltage QRS Nonspecific T wave abnormality Abnormal ECG When compared with ECG of 09-OCT-2020 11:49, Premature ventricular complexes are no longer Present T wave inversion no longer evident in Lateral leads Confirmed by MD Garcia Jon ([id number]) on 10/03/2021 2:05:09 PM MUSE SYSTEM 10/03/2021 11:1 6 AM EDT 10/03/2021 2:05 PM EDT Kenny Nelson MD ECG ORDERABLES MUSE SYSTEM documented in this encounter Visit Diagnoses Diagnosis Paroxysmal atrial fibrillation Atrial fibrillation documented in this encounter Care Teams Skiver Heel Tap Relationship Specialty Start Date End Date Camacho Barrera DO [address] [place] [address] PCP - General Family Medicine 07/01/18 documented as of this encounter
--- OUTSIDE RECORDS SUMMARY | 2024-07-21 19:29 | XMS_ITS | Encounter Summary ---
[place] [address] Care Team Providers Care Global Expansion Sales Director Name Role Phone Camacho Barrera DO Primary Care Provider [phone] Reason for Referral * Diagnostic Test (Routine) - Closed Specialty Diagnoses / Procedures Referred By Contac t Referred To Contact Cardiology Diagnoses Paroxysmal atrial fibrillation Procedures Kenny Mcadams MD [facility] [place] [address] [facility] [place] [address] Referral ID Status Reason Start Date Expiration Date V isits Requested Visits Authorized [id number] Closed Specialty Service Requested 08/23/2020 02/20/2021 1 1 Reason for Visit * Diagnostic Test (Routine) - Closed Specialty Diagnoses / Procedures Referred By Contac t Referred To Contact Cardiology Diagnoses Paroxysmal atrial fibrillation Procedures Kenyn Mcadams MD [facility] [place] [address] [facility] [place] [address] Referral ID Status Reason Start Date Expiration Date V isits Requested Visits Authorized [id number] Closed Specialty Service Requested 08/23/2020 02/20/2021 1 1 Encounter Details Date Type Department Care Team (Latest Contact Info) Description 08/24/2020 10:30 AM EDT - 08/24/2020 11:59 PM EDT Hospital Encounter Non-Invasive [place] [address] Kenny Nelson MD [facility] [place] [address] Paroxysmal atrial fibrillation Discharge Disposition: Home Social [...] 9:40 AM EDT Office Visit Cardiology at [address] [place] [address] Gonzales Torres MD [facility] [place] [address] documented as of this encounter Procedures Procedure Name Priority Date/Time Associated Diagnosis Comments ZIOPATCH Routine 08/24/2020 10:47 AM EDT Paroxysmal atrial fibrillation documented in this encounter Results * Ziopatch (08/24/2020 10:47 AM EDT) Anatomical Region Laterality Modality Other Narrative 09/16/2020 9:45 PM EDT Cardiac Electrophysiology Zio Monitor Study Initiated: ??27 August 2020 Duration: ?? 7 days 6 hours (after removal of ~1 hour of artifact) Indication: Paroxysmal atrial fibrillation Result: The overall sinus rhythm rate range was 46-146/minute, and averaged 71/minute. The predominant underlying rhythm throughout the monitoring period was conducted sinus rhythm. The slowest heart rates tended to occur overnight, when also the least amount of heart rate variation tended to be manifest. No pauses >3 seconds were seen, and there was no high grade atrioventricular conduction block reported or observed at normal sinus rates. There was a <1.0% burden of isolated ectopic supraventricular beats detected, and rare supraventricular couplets and triplets were detected as well. There also was a 1% burden of atrial tachycardia/flutter with a rate range 92-174/minute (mean rate 128/minute) during 2 of the days spanned by the overall monitoring period. The longest episode of atrial tachycardia/flutter persisted ~29.8 minutes, and there were 6 episodes that were of at least 6 minutes duration (out of 20 total detections >0.5 minutes duration). There was a 11.8% burden of isolated [...] and ventricular trigeminy lasting for up to 89 seconds also was detected. The ventricular ectopy predominantly was of 2 distinct morphologies. The patient wrote in no timed diary entries for , but there were 2 patient-triggered events; these corresponded to sinus rhythm 83/minute with ventricular ectopy (both including bigeminy). Conclusion: This monitor study was remarkable for sinus rhythm. A 1% burden of paroxysmal atrial tachycardia/flutter and a ~12% burden of ventricular ectopy were detected. ____ Interpreted by Kenny Nelson MD, [facility] Kenny Nelson MD CARDIAC SERVICES ORD ERABLES documented in this encounter Visit Diagnoses Diagnosis Paroxysmal atrial fibrillation Atrial fibrillation documented in this encounter Care Teams Global Expansion Sales Director Relationship Specialty Start Date End Date Camacho Barrera DO [address] [place] [address] [place] [address] PCP - General Family Medicine 07/01/18 documented as of this encounter
--- OUTSIDE RECORDS SUMMARY | 2024-07-21 19:29 | XMS_ITS | Encounter Summary ---
[place] [address] Care Team Providers Care Goodwill Ambassador Name Role Phone Camacho Barrera DO Primary Care Provider [phone] Reason for Visit * Reason Onset Date Comments Medication Refill 10/23/2018 Encounter Details Date Type Department Care Team (Late st Contact Info) Description 10/23/2018 Refill Cardiology at [address] [address] Miguel De Los Santos PA [facility] [place] [address] Medication Refill Social History Tobacco Use Types [...] 9:40 AM EDT Office Visit Cardiology at [address] [place] [phone] Gonzales Torres MD [facility] [place] [address] documented as of this encounter Visit Diagnoses Not on filedocumented in this encounter Care Teams Goodwill Ambassador Relationship Specialty Start Date End Date Camacho Barrera DO [address] [address] PCP - General Family Medicine 07/01/18 documented as of this encounter
--- OUTSIDE RECORDS SUMMARY | 2024-07-21 19:30 | XMS_ITS | Encounter Summary ---
[place] [address] Care Team Providers Care Plaster And Stucco Worker Name Role Phone Camacho Barrera DO Primary Care Provider [phone] Reason for Visit * Auth/Cert Specialty Diagnoses / Procedures Referred By Contac t Referred To Contact Diagnoses Chest pain ANGINA ?CAD Procedures CARDIAC CATHETERIZATION URG IPI Referral ID Status Reason Start Date Expiration Date Visits Re quested Visits Authorized [id number] 1 1 Encounter Details Date Type Department Care Team (Late st Contact Info) Description 07/30/2018 11:54 AM EDT Anesthesia Event [place] [address] Faith Del Rosario MD [facility] [place] [address] Jatin Bhardwaj MD [facility] [place] [address] Anesthesia Record Procedure Summary Procedure Name Responsible Anesthesiologist Anesthesia Start Time Anesthesia Stop Time CARDIOVERSION IN CATH/EP LAB Faith Del Rosario MD 07/30/18 1154 07/30/18 1213 Events Date Time Event Comment 07/30/2018 1154 1154 AN Verify 1154 Start 1154 An Start Data 1156 Anesthesia Ready 1159 Quick Note 1205 Quick Note Recovering sandee ent in this room 1213 an stop data 1213 Recovery or ICU Handoff Sandee ent care was transferred to the destination unit staff after review of the patient's medical history, current anesthetic/surgical status and plan, according to the Provider Handoff Checklist. 1213 Stop Meds Name Total Propofol 80 mg sodium chloride 0.9% infusion 0 mL * Agents No agents on file. * Blood No blood administrations on file. [...] (RETIRED) Peripheral IV Line - Single Lumen 07/28/18; 0958; basilic vein (medial side of arm), left; [id number] catheter system; 20 gauge, 1 in length; Nasima Bond RN VAS; distraction, tolerated well, appears comfortable; 2; basilic vein (medial side of arm), right, cephalic vein (lateral side of arm), right; 08/01/18; 1359 07/28/18 0958 by Rach Doherty RN 08/01/18 1359 by Jeny Canas LNA documented in this encounter Social History Tobacco [...] OR Notes * Anesthesia Postprocedure Evaluation - Faith Del Rosario MD - 07/30/2018 12:22 PM EDT [facility] Department of Anesthesiology Post-procedure Note Patient: Camacho Flores Procedure Summary Date Anesthesia Start Anesthesia Stop Room / Location 07/30/18 1154 1213 EP A-LAB ROOM 3 / [facility] EP LABS Procedure Diagnosis Provider Responsible Provider CARDIOVERSION IN CATH/EP LAB (N/A ) (AFIB) Miguel De Los Santos PA Franko, Denise M, MD All Anesthesia Providers: Anesthesiologist: Faith Del Rosario MD GENERAL DUTY NURSE: Lalo Forrester CRNA Most Recent Vitals: 07/30/18 1146 BP: 129/84 Pulse: (!) 105 Resp: 18 Temp: 36.8 ??C (98.2 ??F) SpO2: 97% Pain Patient Location: Floor Level of Consciousness: Awake and Alert Pain Management: Satisfactory Analgesia PONV: None Cardiovascular Status: At Baseline and Hemodynamically Stable Respiratory Status: At Baseline and Room Air Postoperative Fluid Status: Intravascular EUvolemia Possible Anesthetic Complications: NONE apparent at time of evaluation Final Primary Anesthesia Type: General (The anesthetic type performed was the same as planned.) Comments: Faith Del Rosario MD * Anesthesia Preprocedure Evaluation - Faith Del Rosario MD - 07/30/2018 10:43 AM EDT Pre-Anesthesia Evaluation for: Camacho Flores a 72 y.o. male. Procedure(s): TR[facility]HAGE[facility] Patient Active Problem List Diagnosis ??? ASCVD [...] W/SCAN performed by Jose Small MD at [facility] MAIN OR ??? PRO STEREOTACTIC CPTR ASSTD PX CRANIAL, INTRADURAL Right 01/27/2015 STEREOTACTIC COMPUTER-ASSTD NAVIGATIONAL CRANIAL INTRADURAL performed by Jose Small MD at [facility] MAIN OR Social History Substance Use Topics ??? Smoking status: Never Smoker ??? Smokeless tobacco: Never Used ??? Alcohol use Not on file Comment: 2-3 drinks/night History Drug Use No Allergies Allergen Reactions ??? [...] been reviewed. Physical Exam: Most Recent Vitals: 07/30/18 0948 BP: 134/82 Pulse: 91 Resp: 19 Temp: SpO2: 97% Body mass index is 27.31 kg/(m^2). Height: 188 cm (6' 2) Weight: 96.5 kg (212 lb 11.9 oz) Airway Assessment: Mallampati: II TM distance: >3 FB Neck ROM: full Cardiovascular Assessment: Pulmonary Assessment: Dental Assessment: Misc Assessment: Anesthesia Plan: ASA 3 MAC, with a(n) intravenous induction Cardiovresion. Did well with propofol for ROLAND yesterday. Obesity HLD HTN CAD Afib MAC Appropriately NPO. No hx of trouble with anesthesia in the past. Informed Consent: Anesthetic plan and risks discussed with patient. Plan discussed with resident and attending. PAT Staff Note documented in this encounter Plan of Treatment Upcoming Encounters Date Type Department Care Team (Late st Contact Info) Description 09/08/2024 9:40 AM EDT Office Visit Cardiology at [address] [place] [address] Gonzales Torres MD [facility] [place] [address] documented as of this encounter Visit Diagnoses Not on filedocumented in this encounter Administered Medications Inactive Administered Medications - up to 3 most recent administrations Medication Order MAR Action Action Date Dose Rate Site propofol (DIPRIVAN) 10 mg/mL bolus injection (Anesthesia) PRN, Starting on Tash 07/30/18 at 1157, Until Tash 07/30/18 at 1213, Anesthesia Intra-op Given 07/30/2018 11:57 AM EDT 80 mg sodium chloride 0.9% infusion 100 mL/hr, Intravenous, CONTINUOUS, Starting on Fri07/29/18 at 1115, Until Tash 07/30/18 at 1651, Please give 1 L total New Bag 07/30/2018 11:54 AM EDT New Bag 07/30/2018 10:07 AM EDT 100 mL/hr 100 mL/hr New Bag 07/29/2018 11:02 AM EDT 100 mL/hr 100 mL/hr documented in this encounter Care Teams Plaster And Stucco Worker Relationship Specialty Start Date End Date Camacho Barrera DO [address] [place] [address] PCP - General Family Medicine 07/01/18 documented as of this encounter
--- OUTSIDE RECORDS SUMMARY | 2024-07-21 19:30 | XMS_ITS | Encounter Summary ---
[place] [address] Care Team Providers Care Documentation Nurse Name Role Phone Agata Barrera DO Primary Care Provider [phone] Reason for Visit * Auth/Cert Specialty Diagnoses / Procedures Referred By Contac t Referred To Contact Diagnoses Chest pain ANGINA ?CAD Procedures CARDIAC CATHETERIZATION URG IPI Referral ID Status Reason Start Date Expiration Date Visits Re quested Visits Authorized [id number] 1 1 Encounter Details Date Type Department Care Team (Late st Contact Info) Description 07/30/2018 12:00 PM EDT - 07/30/2018 1:00 PM EDT Surgery [place] [address] Miguel De Los Santos, PA [facility] [place] [address] CARDIOVERSION IN CATH/EP LAB Social History Tobacco Use Types Packs/Day Years [...] Sign Reading Time Taken Comments Blood Pressure 129/84 07/30/2018 11:46 AM EDT Pulse 105 07/30/2018 11:46 AM EDT Temperature 36.8 ??C (98.2 ??F) 07/30/2018 1 1:46 AM EDT Respiratory Rate 18 07/30/2018 11:4 6 AM EDT Oxygen Saturation 97% 07/30/2018 11: 46 AM EDT Inhaled Oxygen Concentration - - Weight 96.5 kg (212 lb 11.9 oz) 07/30/2018 6:06 AM EDT Height 188 cm (6' 2) 07/26/2018 11:00 AM EDT Body Mass Index 27.46 07/26/2018 11:00 AM EDT documented in this encounter Discharge Summaries * Doris Sharp PA - 07/26/2018 3:05 PM EDT Discharge Summary Patient Name: Agata Flores Patient Age: 72 y.o. Language: Tunisian Race: White Ethnicity: Not nor Admit date: 07/26/2018 Discharge date and time: 08/01/18 Attending Physician: Ant Suarez MD Discharge Physician: Dr. Suarez Follow-up Recommendations for Providers: Patient did not tolerate Dofetilide due to QTC prolongation Patient will continue lopressor as before and Magnesium 400 mg PO daily EP to see in a week Inpatient Provider Contact Information: [facility] can be reached at [phone] Discharge Diagnoses (Hospital Problems) and Secondary Diagnoses (Chronic Problems): Active Hospital Problems Diagnosis ??? ASCVD (arteriosclerotic cardiovascular disease) ??? Atrial fibrillation ??? Hypertension ??? HLD (hyperlipidemia) ??? Chest pain Resolved Hospital Problems Diagnosis Date Resolved No resolved problems to display. Active Non-Hospital Problems Diagnosis ??? Brain abscess Operations/Major Procedures: Operations: Procedure(s): CARDIOVERSION IN CATH/EP LAB 07/27/18 Hemodynamics: Right Heart Pressures Hemodynamics: Syst Diast EDP a v m RA 1 1 1 RV 25 2 PA 27 15 19 PCW 21 15 ? Hemodynamic Profile: Profile 1 Profile 2 CO 3.79 3.70 CI 1.68 1.64 TSR 1,731 1,773 SVR 1,710 1,751 TPR 401 411 PVR 84 86 Technique Estimated Pancho Thermodilution ? Left Heart Pressures Resting: Syst Diast EDP a v m Ao 101 67 82 LV 110 8 ? Coronary Angiography: Dominance: Right ? Left Main There was mild diffuse (<=25% stenosis) disease of the entire vessel segment of the left main artery. ? Left Anterior Descending There was mild diffuse (<=25% stenosis) disease of the entire vessel segment of the left anterior descending artery (LAD). The previously placed stent is patent. ? Left Circumflex There was mild diffuse (<=25% stenosis) disease of the entire vessel segment of the left circumflex artery (LCX). The previously placed stent is patent. ? Right Coronary Artery There was mild diffuse (<=25% stenosis) disease of the entire vessel segment of the right coronary artery (RCA). The distal segment of the RCA had a single discrete 40% stenosis. ? Ramus There was mild diffuse (<=25% stenosis) disease of the entire vessel segment of the ramus. The previously placed stent is patent. Conclusions: * Nonobstructive coronary artery disease * Decreased cardiac output Studies: CXR 07/24/18 @ OSH Conclusion: Mild cardiomegaly. No acute abnormality. Echo 07/27/18 SUMMARY: 1. Mild concentric left ventricular hypertrophy is [...] from 01/31/2015, there is no significant change. CT Head wo contrast 07/28/18: IMPRESSION No acute intracranial abnormality. Evidence of prior right-sided merritt hole procedure with underlying encephalomalacic change similar to prior MRI. Mild left maxillary paranasal sinus disease. Question related to adjacent dental disease. ?? CT cervical spine 07/28/18: IMPRESSION No acute cervical spine fracture. ?? NENO 07/29/18: Rhythm: ?A-Fib ?? SUMMARY: ?? 1. Limited NENO for left atrium and left atrial appendage evaluation. No thrombus is visualized within the left atrium or atrial appendage. 2. Biventricular systolic function appears preserved wtih an estimated LV ejection fraction of 60%. 3. There is moderate mitral regurgitation. 4. See remainder of report for additional findings. ?? History of Presentation: Mr. Flores is a 72 year-old male with PMH of CAD (PCI in 2006, BRENDA distal LAD x2, distal LCx x2, ramus x1 at [facility]), HTN, HLD, persistent a-fib (diagnosed 6 weeks ago, s/p DCCV 3 weeks ago, on xarelto), and brain abscess (s/p surgery and abx treatment in 2014) who presented to [facility] with progressive dyspnea and lightheadedness on exertion, as well as chest pressure. He reports that over the last few months, he has noticed progressive shortness of breath and lightheadedness with exertion,which is now occurring with only minimal exertion. These are similar to the symptoms he experiencedbefore his stents were placed in 2006. He was diagnosed with a-fib about six weeks ago when he wentto the hospital for these symptoms- was started on metoprolol and xarelto. He had DCCV about three weeks ago, which successfully converted him back to SR, but this only lasted about one week before he converted back into a-fib. Of note, he reports that the shortness of breath and dizziness improvedduring the time that he was presumed to be in sinus rhythm. His stick puller, Dr. Ma, had also scheduled him for an outpatient nuclear stress test to be done in the coming weeks. On Friday, 07/24, he had an episode of chest pressure, occurring with his shortness of breath and lightheadedness on exertion. It was relieved with rest. He went to [facility] ED and was in a-fib with HR 80. Troponins were negative, EKG was without concerning findings. He was admitted to [place] [facility] [place], given his history of ASCVD. He had one additional episode of chest pressure on exertion while at [facility], when he had gotten up to walk over to the chair in his room. HR was in the 110s at the time. He was started on imdur 15mg with no further episodes of chest pain. ?? He has aspirin listed as an allergy on his medication list. He reports nosebleeds with aspirin therapy for longer than 1-2 weeks in the past. He was started on aspirin at [facility] without side effects. Hospital Course: Chest pressure, with h/o ASCVD The patient ruled out for NSTEMI with negative troponin x3, however symptoms were concerning for his anginal equivalent. ECG showed no acute ST changed. Echo showed EF 61% without wall motion abnormalities. Given the patient???s risk factors and presentation, it was decided to proceed with coronaryangiography. He went to the clinical genetics laboratory chief for a diagnostic cath, which showed non-obstructive CAD. Access was via the right radial artery, the site was clean, dry, and intact on day of discharge. He was discharged on aspirin 81mg daily, metoprolol, statin, and SL nitro prn. ?? Persistent a-fib, rate controlled The patient was in controlled a-fib, HR in 80s, on admission. His [id number] score is 3 (age, HTN,CAD). Rivaroxaban had been held at the OSH in preparation for cath. Bridge therapy was not indicated. He was continued on metoprolol. Since cath was negative for ischemia, his symptoms were believed to be related to a-fib. EP was consulted and the patient was resumed on rivaroxaban. He was scheduled for NENO prior to initiating antiarrhythmic therapy, however this plan was delayed as he had an unwitnessed syncopal episode while in the bathroom with head trauma on 07/28. A head CT scan ruled out acute bleed and he was cleared from the c-collar by exam and with a cervical spine CT that ruled out a neck fracture. He ultimately underwent NENO on 07/29 which ruled out atrial thrombus and he was subsequently started on dofetilide 500 mcg twice daily dosing. His QTc measurements were followed pre-and post dose. After having received 2 doses of dofetilide, the EP team arranged for him to undergo electrical cardioversion. He was successfully converted to normal sinus rhythm and maintained this forthe remainder of the hospitalization. He received a several doses of Dofetilide but his QTC became prolonged. This was reduced to 250 and the QTC was still prolonged. Therefore, the dofetilide was stopped. He will continue his metoprolol as before and return to see EP in a week from now. ?? HFpEF The patient had right basilar crackles on admission, CXR was negative for edema. ProBNP ~450. Echo showed EF 61%. RHC revealed normal pressures but reduced CO/CI, which was likely due to poor atrial kick secondary to a-fib. He was not diuresed during his hospitalization. His weight was 97 Kg on discharge home. Syncope, isolated episode On 07/28 he had a unwitnessed syncopal episode while up in the bathroom with preceding complaints oflightheadedness. His event was felt to be likely vasovagal in nature. His neurological status was intact however given the recent resumption of Xarelto a CT of his head was done to rule out an acute bleed. He was initially placed in a c-collar that was clear from this after and a cervical spine CT was negative for fracture. He was orthostatic positive the following 2 days and was ordered for 1 L of normal saline over 10 hours. Orthostatics were rechecked on the morning of 07/31 and showed improvement. ?? Leukocytosis WBC 15->17 to 14. This was likely secondary to stress. Unclear etiology. No fevers, signs of infection, UA with no bacteria, suspected to be stress-induced. HTN The patient???s BP was BP: (115-144)/(63-88) in the 24 hours prior to discharge. The patient was continued on metoprolol as before. ?? HLD At the OSH, the patient???s lipid panel showed TC 143, LDL 101, HDL 33, TG 93. The patient was switched to rosuvastatin 10mg (as he had myalgias in the past with higher doses of atorvastatin and simvastatin). Routine screening labs revealed the following: HA1c 5.6 TSH 3.98 The patient is a non-smoker. The patient was evaluated by the cardiac rehab team. The patient tolerated supervised ambulation inthe hallway and up/downstairs with no anginal symptoms. It was recommended that the patient return home and participate in a supervised cardiac rehab program. The patient was discharged home in stable condition. Functional and Cognitive Status: stable Important Studies and Lab Data: Labs: Lab Results Component Value Date WBC 14.1 (H) 08/01/2018 HGB 13.9 08/01/2018 HCT 38.9 (L) 08/01/2018 PLATELET 198 08/01/2018 Recent Labs 07/26/18 1144 INR 1.2 Lab Results Component Value Date NA 137 08/01/2018 K 4.4 08/01/2018 CL 102 08/01/2018 CO2 25 08/01/2018 BUN 22 (H) 08/01/2018 CREATININE 0.79 (L) 08/01/2018 Recent Labs 07/26/18 1144 TSH 3.98 Recent Labs 07/26/18 1144 HA1C 5.6 Recent Labs 07/26/18 2230 07/26/18 1631 07/26/18 1144 CK 23 22 <20 TROPONINT <0.01 <0.01 <0.01 Pending Studies and Lab Data: n/a Discharge Conditions/Prognosis: stable Discharge to: Home with family Updated Allergies/ADRs: Allergies Allergen Reactions ??? Bee Pollen Anaphylaxis Bee Stings Use to carry Epi Pen, ??? Penicillins Angioedema States as a child, had facial, lip swelling. ??? Shellfish Containing Products Nausea And Vomiting SHRIMP only. Blotches, swelling, ??? Aspirin Nosebleeds after 2 weeks of therapy ??? Ceftriaxone leukopenia ??? Keppra [Levetiracetam] leukopenia ??? Simvastatin Myalgia Immunizations Given this Hospitalization: There is no immunization history on file for this patient. Discharge Medications: Your Medications New Medications Dose Details aspirin 81 mg Tbec Take 1 tablet by mouth daily. Start taking on: 08/02/2018 81 mg Quantity: 30 tablet Refills: 3 magnesium oxide 400 mg Tab Commonly known as: MAG-OX Take 1 tablet by mouth daily. 400 mg Quantity: 30 tablet Refills: 12 nitroGLYcerin 0.4 mg Subl Commonly known as: NITROSTAT Place 1 tablet under the tongue every 5 minutes as needed for Chest pain. 0.4 mg Quantity: 90 tablet Refills: 12 Continued medications, unchanged Dose Details atorvastatin 10 mg Tab Commonly known as: LIPITOR Take 10 mg by mouth daily. 10 mg Refills: 0 COMBIGAN 0.2-0.5 % Drop Apply 1 drop to eye 2 times daily. Generic drug: Brimonidine-Timolol 1 drop Refills: 0 metoprolol tartrate 50 mg Tab Commonly known as: LOPRESSOR Take 50 mg by mouth 2 times daily. 50 mg Refills: 0 rivaroxaban 20 mg Tab Commonly known as: XARELTO Take 20 mg by mouth daily. 20 mg Refills: 0 Smoking Status at Discharge: History Smoking Status ??? Never Smoker Smokeless Tobacco ??? Never Used Instructions Given to Patient at Discharge: There are no outpatient Patient Instructions on file for this admission. General Instructions Anti-coagulation follow up: continue rivaroxaban as before Call your doctor if: Chest pain, shortness of breath, pain or swelling in legs occurs. If you have non-emergent questions between now and the time of your follow up appointments: During 8am-5pm Friday through Friday call [phone] to speak with a nurse in the cardiology clinic All other times call [phone] and ask to speak to the hogshead inspector precision structural metal fitter. Return to work: as needed Driving: as needed Follow up Appointments: PCP Agata Barrera DO [phone] to see you in a week. Please set a date and time that will work for you. Cardiology to see you in a week. EP to set the date and time for this. Home oxygen therapy: N/A Arrangements for VNA/home care: none Discharge References/Attachments None documented in this encounter Discharge Instructions * Discharge Instructions* Doris Sharp PA - 08/01/2018 1:31 PM EDT Anti-coagulation follow up: continue rivaroxaban as before Call your doctor if: Chest pain, shortness of breath, pain or swelling in legs occurs. If you have non-emergent questions between now and the time of your follow up appointments: During 8am-5pm Friday through Friday call [phone] to speak with a nurse in the cardiology clinic All other times call [phone] and ask to speak to the hogshead inspector precision structural metal fitter. Return to work: as needed Driving: as needed Follow up Appointments: PCP Agata Barrera DO [phone] to see you in a week. Please set a date and time that will work for you. Cardiology to see you in a week. EP to set the date and time for this. Home oxygen therapy: N/A Arrangements for VNA/home care: none documented in this encounter Medications at Time of Discharge Medication Sig Dispensed Refills Start Date End Date aspirin 81 mg Tablet, Delayed Release (E.C.) Take 1 tablet by mouth daily. 30 tablet 3 08/02/2018 10/21/2018 magnesium oxide (MAG-OX) 400 mg Tablet Take 1 tablet by mouth daily. 30 tablet 12 08/01/2018 10/03/2021 nitroGLYcerin (NITROSTAT) 0.4 mg Tablet, Sublingual Place 1 tablet under the tongue every 5 minutes as needed for Chest pain. 90 tablet 12 08/01/2018 02/11/2024 metoprolol tartrate (LOPRESSOR) 50 mg Tablet Take 50 mg by mouth 2 times daily. 08/18/2018 Brimonidine-Timolol (COMBIGAN) 0.2-0.5 % Drops Apply 1 drop to eye 2 times daily. 08/28/2022 rivaroxaban (XARELTO) 20 mg Tablet Take 20 mg by mouth daily. 11/07/2020 atorvastatin (LIPITOR) 10 mg Tablet Take 10 mg by mouth daily. 05/21/2023 documented as of this encounter Progress Notes * Holly Alexandre RN - 08/01/2018 2:24 PM EDT Pt A+O. No complaints of pain, SOB or dizziness. Pt ambulating without issues. SR SB on tele rates 50-70, occ pvcs, freq pacs- PA Aron aware. tikosyn dose held this AM and was discontinued. EKG obtained. Pt being discharged to home with today via private car. Pt's IV and tele removed. Pt'sAVS given to and gone over with patient and - verbalizes understanding- no questions at the time of discharge. Pt wheeled out by nursing staff. * Ant Suarez MD - 08/01/2018 7:22 AM EDT Images from the original note were not included. Inpatient Cardiology Progress Note Patient Name: Agata Flores Service: UNIX SYSTEMS ADMINISTRATOR / PA Responsible Attending: Ant Suarez MD Reason for continued hospitalization: A-fib management, Dofetilide load, s/p cardioversion to NSR Telemetry monitoring EP to see patient prior to continuing Dofetilide Active Problems: Active Hospital Problems Diagnosis ??? ASCVD (arteriosclerotic cardiovascular disease) PCI in 2005 at [facility]: stents to LAD x2, LCx x2, ramus ??? Atrial fibrillation Diagnosed 2018, on rivaroxaban, s/p DCCV ??? Hypertension ??? HLD (hyperlipidemia) ??? Chest pain Resolved Hospital Problems Diagnosis Date Resolved No resolved problems to display. Interval History: Mr. Flores remains in NSR following his cardioversion. His most recent QTC is 520 so we are asking EP whether he is going to be able to go home on Dofetilide today or not. He feels much better in NSR now. Review of Systems: Review of Systems Respiratory: Negative for shortness of breath. Cardiovascular: Negative for chest pain and palpitations. Neurological: Negative for dizziness, syncope, facial asymmetry, light- headedness, numbness and headaches. All other systems reviewed and are negative. Telemetry: HR 50-60 in NSR Meds: Scheduled Meds: ??? dofetilide 250 mcg Oral BID ??? rivaroxaban 20 mg Oral Daily with dinner ??? metoprolol tartrate 25 mg Oral Q6H POPPY ??? aspirin 81 mg Oral Daily ??? brimonidine 1 drop Both Eyes BID And ??? timolol 1 drop Both Eyes BID ??? rosuvastatin 10 mg Oral QPM Continuous Infusions: PRN Meds:nitroGLYcerin, acetaminophen Physical Exam: Vital Signs: Last value Range last 24 hrs Temperature Temp: 36.9 ??C (98.4 ??F) Temp: [36.6 ??C (97.9 ??F)-37.1 ??C (98.8 ??F)] Heart Rate Heart Rate: 56 Heart Rate: [53-61] Blood Pressure BP: 141/74 BP: (115-141)/(63-78) Respiratory Rate Resp: 16 Resp: [16-18] SpO2 SpO2: 100 % SpO2: [96 %-100 %] Intake/Output Summary (Last 24 hours) at 08/01/18 0919 Last data filed at 08/01/18 0822 Gross per 24 hour Intake 796 ml Output 875 ml Net -79 ml Patient Vitals for the past 168 hrs: Weight 08/01/18 0543 97 kg (213 lb 13.5 oz) 07/31/18 0640 96.9 kg (213 lb 10 oz) 07/30/18 0606 96.5 kg (212 lb 11.9 oz) 07/29/18 0530 96.8 kg (213 lb 6.5 oz) 07/28/18 0357 97.7 kg (215 lb 6.2 oz) 07/27/18 0346 98.2 kg (216 lb 7.9 oz) 07/26/18 1100 98.8 kg (217 lb 13 oz) Physical Exam Constitutional: He is oriented to person, place, and time. He appears well- developed and well-nourished. No distress. HENT: Head: Normocephalic and atraumatic. Eyes: EOM are normal. Pupils are equal, round, and reactive to light. Right eye exhibits no discharge. Left eye exhibits no discharge. Neck: Normal range of motion. Neck supple. No JVD present. Cardiovascular: Normal rate, regular rhythm, S1 normal, S2 normal and normal heart sounds. Exam reveals no gallop and no friction rub. No murmur heard. Pulmonary/Chest: Effort normal and breath sounds normal. No respiratory distress. He has no wheezes. He has no rales. Abdominal: Soft. Bowel sounds are normal. He exhibits no distension. Musculoskeletal: Normal range of motion. He exhibits no edema or tenderness. Neurological: He is alert and oriented to person, place, and time. He has normal strength. Skin: Skin is warm and dry. He is not diaphoretic. Psychiatric: He has a normal mood and affect. His behavior is normal. Nursing note and vitals reviewed. Lab Comments: Recent Labs 08/01/18 0335 07/31/18 0633 07/30/18 0406 WBC 14.1* 14.3* 17.2* HGB 13.9 15.8 15.0 HCT 38.9* 45.2 43.5 PLATELET 198 183 197 Recent Labs 07/26/18 1144 INR 1.2 Recent Labs 08/01/18 0335 07/31/18 0633 07/30/18 0406 NA 137 140 138 K 4.4 4.3 4.1 CL 102 100 101 CO2 25 27 24 BUN 22* 22* 19 CREATININE 0.79* 0.75* 0.81 No results for input(s): AST, ALT, ALKPHOS, BILITOT, BILIDIR in the last 168 hours. Recent Labs 08/01/18 0335 07/31/18 0633 07/30/18 0406 07/29/18 0517 07/28/18 0354 CALCIUM 9.4 9.6 9.3 9.4 9.7 MAGNESIUM -- -- 0.83 0.85 0.86 Recent Labs 07/26/18 2230 07/26/18 1631 07/26/18 1144 CK 23 22 <20 TROPONINT <0.01 <0.01 <0.01 Pertinent Radiographic/Diagnostic Results: ECG 08/01/2018 afib, no acute ST changes Echo 07/27/18 SUMMARY: 1. Mild concentric left ventricular hypertrophy is [...] report from 01/31/2015, there is no significant change Cardiac catheterization 07/27/18 Conclusions: * Nonobstructive coronary artery disease * Decreased cardiac output CT Head wo contrast 07/28/18: IMPRESSION No acute intracranial abnormality. Evidence of prior right-sided merritt hole procedure with underlying encephalomalacic change similar to prior MRI. Mild left maxillary paranasal sinus disease. Question related to adjacent dental disease. CT cervical spine 07/28/18: IMPRESSION No acute cervical spine fracture. NENO 07/29/18: Rhythm: A-Fib SUMMARY: 1. Limited NENO for left atrium and left atrial appendage evaluation. No thrombus is visualized within the left atrium or atrial appendage. 2. Biventricular systolic function appears preserved wtih an estimated LV ejection fraction of 60%. 3. There is moderate mitral regurgitation. 4. See remainder of report for additional findings. Assessment: Agata Flores is a 72 y.o. male with PMH of CAD (PCI in 2006, BRENDA distal LAD x2, distal LCx x2, ramus x1 at [facility]), HTN, HLD, persistent a-fib (diagnosed 6 weeks ago, s/p DCCV 3weeks ago, on xarelto), and brain abscess (s/p surgery and abx treatment in 2014) who presented to [facility] with progressive dyspnea and lightheadedness on exertion, as well as chest pressure. Cardiac enzymes negative, EKG without concerning findings. Echo shows EF 61%, no WMAs. Right and left heart catheterization reveals non-obstructive coronary disease, normal filling pressures, reduced CO/CI. Symptoms likely secondary to a-fib, as he was recently diagnosed and remains in a-fib despite DCCV and a ddition of beta miller. He was evaluated by our EP team and currently had plans for a NENO and antiarrhythmic drug load. Unfortunately this plan was delayed as he had an unwitnessed syncopal episode while in the bathroom with head trauma on 07/28. CT scan ruled out acute bleed and he was cleared from the c-collar. He underwent NENO 07/29/18 which ruled out atrial thrombus. Dofetilide 500 mcg was started 07/29/18 and his QTC measurements have been followed pre-and post dose. He is s/p cardioversion 07/30/18 and remains in NSR. Due to an increased QTC, his Dofetilide was decreased to 250 BID. His QTC was 520 based on EKG 08/01/18 at 12 am. EP to decide if we are continuing this medication. Stable. ?? Plan: Chest pressure, with h/o ASCVD Trend troponin, negative x3 LHC with nonobstructive CAD No further episodes of chest pressure EF 61%, no WMAs Continue aspirin, metoprolol, statin, SL nitro prn ?? Persistent a-fib, rate controlled HR controlled in 80-100s since admission, currently in A. fib [id number] Score: 3 (age, HTN, CAD) Continue metoprolol Continues on rivaroxaban EP consult appreciated NENO ruled out atrial Thrombus Dofetilide 500 mcg started twice daily-now we decreased to 250 mcg BID yesterday S/p cardioversion, patient is in NSR Hold dofetilide until confirmed with EP team Syncope, isolated episode, resolved Likely vasovagal +head trauma, CT head with no bleed Cleared from c-collar, CT neck with no fractures Off telemetry at time of event Ortho positive Given IVF for 1 L of NS at 100 mL/hour, and then recheck orthostatics Continuous telemetry ?? HFpEF ProBNP elevated at ~450, CI reduced CXR negative for edema EF 61%, normal filling pressures on RHC Shortness of breath on exertion, in the setting of low cardiac index, may imply possible diastolic dysfunction No diuretics at this time Leukocytosis WBC 15->17 today Unclear etiology No fevers, signs of infection UA with no bacteria Suspected stress-induced We will follow ?? HTN BP: (115-141)/(63-78) over the last 24 hours Continue metoprolol ?? HLD TC 143, LDL 101, HDL 33, TG 93 (at OSH) Switched to rosuvastatin 10mg, myalgias in the past with higher doses of atorvastatin and simvastatin Monitor closely CODE STATUS: FULL CODE Patient seen and discussed with Ant Suarez MD Kelly H. LaFlamme, PA 08/01/2018 Pager [phone] 08/01/2018 I have seen the patient and reviewed the advanced practice provider's above history and I agree with the details as written. The assessment and plan were formulated in discussion with me and I agree with them as documented. Unable to use dofetilide, EP consulted and okay with discharging patient today. Will discontinue dofetilide. * Norma Delatorre - 07/31/2018 3:17 PM EDT Nutrition Services - Initial Note Agata Flores : 1945 AGE: 72 y.o. Patient Active Problem List Diagnosis Date Noted ??? *Hospital-ASCVD (arteriosclerotic cardiovascular disease) 07/26/2018 ??? Hospital-Atrial fibrillation 07/26/2018 ??? Hospital-Hypertension 07/26/2018 ??? Hospital-HLD (hyperlipidemia) 07/26/2018 ??? Hospital-Chest pain 07/26/2018 ??? Brain abscess 01/31/2015 Reason for Nutrition Intervention: Diet Order [place] [facility] [place] [facility] Appetite: Good Food allergies: NKFA Chewing/Swallowing difficulty: None per Patient Ht Readings from Last 3 Encounters: 07/26/18 188 cm (6' 2) 01/27/15 188 cm (6' 2) Wt Readings from Last 3 Encounters: 07/31/18 96.9 kg (213 lb 10 oz) 04/06/15 93.4 kg (206 lb) 03/28/15 91 kg (200 lb 9.9 oz) Body mass index is 27.43 kg/(m^2). Assessment: Patient seen regarding Nutrition Education - [facility] [place] [facility] diet. Patient reported a good appetite without difficulty chewing or swallowing. He is tolerating current diet without nausea or vomiting. Patient verbalized good understanding of current dietary restrictions at this time. Patientstated this diet restriction is new to me and I am planning to continue on following the diet after going home. Discussed how to read a food label and what terms to look for while grocery shopping.Emphasized the importance of portion sizes as well. Encouraged daily consumption of fresh fruits and vegetables, and to avoid frozen pre packed meals and canned good. Educational material Two Gram Sodium and Guidelines for a Heart Healthy Lifestyle provided. Patient had no further questions at this time. Encouraged patient to contact Food and Nutrition services with any questions that may arise. Nutrition Plan: Continue current diet. Recommend Daily Multi Vitamins. Monitor weight. Encourage good po intake. Support and encouragement provided. Nutrition services to follow weekly thru hospital course unless consulted in the interim. RIVERA Wilkerson * Corazon Allen RN - 07/31/2018 1:56 PM EDT CM verified with pharmacy [facility]. It does not require prior authorization and the copay is 5 dollars. Corazon Allen RN CM Pager [phone] * Josh Muir PA - 07/31/2018 10:45 AM EDT Cardiac Electrophysiology Progress Note Attending: Fred Maki MD Problem List: Patient Active Problem List Diagnosis ??? ','ASCVD (arteriosclerotic cardiovascular disease) Overview Note: PCI in 2005 at [facility]: stents to LAD x2, LCx x2, ramus ??? Atrial fibrillation Overview Note: Diagnosed 2018, on rivaroxaban, s/p DCCV ??? Hypertension ??? HLD (hyperlipidemia) ??? Chest pain ??? Brain abscess Brief HPI: 72 y.o. male with a history of symptomatic afib(recently diagnosed about six weeks ago) but recurrent after cardioversion three weeks ago. He felt better for about a week following cardioversion, on metoprolol and xarelto, but then developed progressive dyspnea and lightheadedness on exertion as well as intermittent chest pain. He has a hx significant for CAD (PCI in 2006, BRENDA distal LAD x2, distal LCx x2, ramus x1 at [facility]), HTN and HLD. His cardiac enzymes remained negative and his EKGs were not suggestive of ischemia. He was [place] [facility] [place] which revealed non-obstructive CAD. Echocardiogram shows LVEF of 61% with no WMAs. ? Additional hx includes brain abscess (s/p surgery and abx treatment in 2014). His electrolytes are normal, QTc is acceptable at 426ms and renal function is good -Cockroff-Gault creatinine clearance: 103 (actual body wgt based). ?? Dr. Maki discussed possible treatment options including ablation vs rhythm vs rate control. He initially thought he might prefer ablation, however he now prefers at least an interim strategy of pharmacologic rhythm control. Interval History: Patient had an unmonitored vasovagal episode on the morning of 07/28/18 with profound head trauma and CT head was done that was negative for acute bleed. A NENO to rule out thrombus prior to initiation of Dofetilide was deferred to 07/29/18. He remained in atrial fibrillation with ventricular rates 80-105 bpm with occasional ventricular ectopy. He had a NENO on 07/29/18 that showed no thrombus within left atrium or atrial appendage. Biventricular systolic function was preserved with LVEF 60% and moderate mitral regurgitation. He was started on Dofetilide 500 mcg every 12 hours on07/29 in PM and remained in atrial fibrillation and was subsequently electrically cardioverted following second loading dose with 150J synchronized cardioversion acutely successful in restoring sinus.His QTc following third loading dose was about 520 ms. ECG: Sinus bradycardia 56 Telemetry: Sinus rhythm 52-100's ROS: Constitutional: - fatigue, - fever, - chills Respiratory: - shortness of breath, - cough, - apnea, - wheezing Cardiovascular: - chest pain, - palpitations, - unusual rates Gastrointestinal: - nausea, - vomiting, - abdominal pain, - diarrhea Neurological: - lightheadedness, - dizziness, - syncope, - weakness Psychiatric: - anxious Vitals: Last Set of Vitals and range of vitals over past 24 hours: Last value Range last 24 hrs Temperature Temp: 36.6 ??C (97.9 ??F) Temp: [36.5 ??C (97.7 ??F)-36.9 ??C (98.4 ??F)] Heart Rate Heart Rate: 56 Heart Rate: [52-105] Blood Pressure BP: 144/74 BP: (128-144)/(58-84) Respiratory Rate Resp: 18 Resp: [17-18] SpO2 SpO2: 100 % SpO2: [95 %-100 %] Physical Exam: General- No acute distress, sitting comfortably in exam room chair HEENT- Head atraumatic, normocephalic Skin- Warm and dry Neck- No JVD noted Cardiovascular- S1/S2 regular rate and rhythm. No murmur, rub or gallop Lungs- Clear to auscultation bilaterally Extremities- Pulses equal bilaterally. No edema noted Neuro- A&Ox3 Laboratory (Last 24 Hours): Lab Results Component Value Date WBC 14.3 (H) 07/31/2018 HGB 15.8 07/31/2018 HCT 45.2 07/31/2018 PLATELET 183 07/31/2018 Recent Labs 07/26/18 1144 INR 1.2 Lab Results Component Value Date NA 140 07/31/2018 K 4.3 07/31/2018 CL 100 07/31/2018 BUN 22 (H) 07/31/2018 CREATININE 0.75 (L) 07/31/2018 MAGNESIUM 0.83 07/30/2018 Assessment: 1. Paroxysmal atrial fibrillation - Currently in sinus rhythm s/p DCCV 2. Chronic anticoagulation with Xarelto 3. Initiation of Dofetilide 500 mcg, however, with QTc prolongation >500 ms following third loading dose - Calculated creatinine clearance is 120ml/min - QTc is 520ms following last dose - K and Mg are acceptable Plan: 1. Decreased Dofetilide to 250 mcg every 12 hours. 2. ECG 2hr post-dosing for QTc monitoring 3. Continue anticoagulation with Xarelto We will continue to follow with you. GAGE Toussaint 07/31/2018 Pager: [phone] Responsible Attending: Fred Maki MD 07/31/2018 Case was discussed with Dr. Maki and he was directly involved in care of patient and formulation of plan Pager: [phone] Associated attestation - Fred Maki MD - 07/31/2018 3:24 PM EDT Patient seen and examined. Pertinent data (jani. ECGs) reviewed. Plan agreed with. Fred Maki MD, PhD, [facility] Cardiac Electrophysiology 07/31/2018 3:24 PM * Ant Suarez MD - 07/31/2018 10:35 AM EDT Images from the original note were not included. Inpatient Cardiology Progress Note Patient Name: Agata Flores Service: UNIX SYSTEMS ADMINISTRATOR / PA Responsible Attending: Ant Suarez MD Reason for continued hospitalization: A-fib management, Dofetilide load, s/p cardioversion to NSR Active Problems: Active Hospital Problems Diagnosis ??? ASCVD (arteriosclerotic cardiovascular disease) PCI in 2005 at [facility]: stents to LAD x2, LCx x2, ramus ??? Atrial fibrillation Diagnosed 2018, on rivaroxaban, s/p DCCV ??? Hypertension ??? HLD (hyperlipidemia) ??? Chest pain Resolved Hospital Problems Diagnosis Date Resolved No resolved problems to display. Interval History: Mr. Flores remains in NSR following his cardioversion. Due to his QTC of 479 to 490 to 521 to 470 we are decreasing his Dofetilide to 250 BID. He will likely go home tomorrow. He feels much better in NSR now. Review of Systems: Review of Systems Respiratory: Negative for shortness of breath. Cardiovascular: Negative for chest pain and palpitations. Neurological: Negative for dizziness, syncope, facial asymmetry, light- headedness, numbness and headaches. All other systems reviewed and are negative. Telemetry: HR 50-60 in NSR Meds: Scheduled Meds: ??? dofetilide 250 mcg Oral BID ??? rivaroxaban 20 mg Oral Daily with dinner ??? metoprolol tartrate 25 mg Oral Q6H POPPY ??? aspirin 81 mg Oral Daily ??? brimonidine 1 drop Both Eyes BID And ??? timolol 1 drop Both Eyes BID ??? rosuvastatin 10 mg Oral QPM Continuous Infusions: PRN Meds:nitroGLYcerin, acetaminophen Physical Exam: Vital Signs: Last value Range last 24 hrs Temperature Temp: 36.6 ??C (97.9 ??F) Temp: [36.5 ??C (97.7 ??F)-36.9 ??C (98.4 ??F)] Heart Rate Heart Rate: 56 Heart Rate: [52-105] Blood Pressure BP: 144/74 BP: (128-144)/(58-84) Respiratory Rate Resp: 18 Resp: [17-18] SpO2 SpO2: 100 % SpO2: [95 %-100 %] Intake/Output Summary (Last 24 hours) at 07/31/18 1035 Last data filed at 07/31/18 0828 Gross per 24 hour Intake 420 ml Output 675 ml Net -255 ml Patient Vitals for the past 168 hrs: Weight 07/31/18 0640 96.9 kg (213 lb 10 oz) 07/30/18 0606 96.5 kg (212 lb 11.9 oz) 07/29/18 0530 96.8 kg (213 lb 6.5 oz) 07/28/18 0357 97.7 kg (215 lb 6.2 oz) 07/27/18 0346 98.2 kg (216 lb 7.9 oz) 07/26/18 1100 98.8 kg (217 lb 13 oz) Physical Exam Constitutional: He is oriented to person, place, and time. He appears well- developed and well-nourished. No distress. HENT: Head: Normocephalic and atraumatic. Eyes: EOM are normal. Pupils are equal, round, and reactive to light. Right eye exhibits no discharge. Left eye exhibits no discharge. Neck: Normal range of motion. Neck supple. No JVD present. Cardiovascular: Normal rate, regular rhythm, S1 normal, S2 normal and normal heart sounds. Exam reveals no gallop and no friction rub. No murmur heard. Pulmonary/Chest: Effort normal and breath sounds normal. No respiratory distress. He has no wheezes. He has no rales. Abdominal: Soft. Bowel sounds are normal. He exhibits no distension. Musculoskeletal: Normal range of motion. He exhibits no edema or tenderness. Neurological: He is alert and oriented to person, place, and time. He has normal strength. Skin: Skin is warm and dry. He is not diaphoretic. Psychiatric: He has a normal mood and affect. His behavior is normal. Nursing note and vitals reviewed. Lab Comments: Recent Labs 07/31/18 0607/30/18 0406 07/29/18 0517 WBC 14.3* 17.2* 15.6* HGB 15.8 15.0 15.7 HCT 45.2 43.5 45.2 PLATELET 183 197 208 Recent Labs 07/26/18 1144 INR 1.2 Recent Labs 07/31/18 0633 07/30/18 0406 07/29/18 0517 NA 140 138 139 K 4.3 4.1 4.3 CL 100 101 102 CO2 27 24 25 BUN 22* 19 20 CREATININE 0.75* 0.81 0.86 No results for input(s): AST, ALT, ALKPHOS, BILITOT, BILIDIR in the last 168 hours. Recent Labs 07/31/18 0633 07/30/18 0406 07/29/18 0517 07/28/18 0354 CALCIUM 9.6 9.3 9.4 9.7 MAGNESIUM -- 0.83 0.85 0.86 Recent Labs 07/26/18 2230 07/26/18 1631 07/26/18 1144 CK 23 22 <20 TROPONINT <0.01 <0.01 <0.01 Pertinent Radiographic/Diagnostic Results: ECG 07/31/2018 afib, no acute ST changes Echo 07/27/18 SUMMARY: 1. Mild concentric left ventricular hypertrophy is [...] report from 01/31/2015, there is no significant change Cardiac catheterization 07/27/18 Conclusions: * Nonobstructive coronary artery disease * Decreased cardiac output CT Head wo contrast 07/28/18: IMPRESSION No acute intracranial abnormality. Evidence of prior right-sided merritt hole procedure with underlying encephalomalacic change similar to prior MRI. Mild left maxillary paranasal sinus disease. Question related to adjacent dental disease. CT cervical spine 07/28/18: IMPRESSION No acute cervical spine fracture. NENO 07/29/18: Rhythm: A-Fib SUMMARY: 1. Limited NENO for left atrium and left atrial appendage evaluation. No thrombus is visualized within the left atrium or atrial appendage. 2. Biventricular systolic function appears preserved wtih an estimated LV ejection fraction of 60%. 3. There is moderate mitral regurgitation. 4. See remainder of report for additional findings. Assessment: Agata Flores is a 72 y.o. male with PMH of CAD (PCI in 2006, BRENDA distal LAD x2, distal LCx x2, ramus x1 at [facility]), HTN, HLD, persistent a-fib (diagnosed 6 weeks ago, s/p DCCV 3weeks ago, on xarelto), and brain abscess (s/p surgery and abx treatment in 2014) who presented to [facility] with progressive dyspnea and lightheadedness on exertion, as well as chest pressure. Cardiac enzymes negative, EKG without concerning findings. Echo shows EF 61%, no WMAs. Right and left heart catheterization reveals non-obstructive coronary disease, normal filling pressures, reduced CO/CI. Symptoms likely secondary to a-fib, as he was recently diagnosed and remains in a-fib despite DCCV and a ddition of beta miller. He was evaluated by our EP team and currently had plans for a NENO and antiarrhythmic drug load. Unfortunately this plan was delayed as he had an unwitnessed syncopal episode while in the bathroom with head trauma on 07/28. CT scan ruled out acute bleed and he was cleared from the c-collar. He underwent NENO 07/29/18 which ruled out atrial thrombus. Dofetilide 500 mcg was started 07/29/18 and his QTC measurements have been followed pre-and post dose. He is s/p cardioversion 07/30/18 and remains in NSR. Stable. ?? Plan: Chest pressure, with h/o ASCVD Trend troponin, negative x3 LHC with nonobstructive CAD No further episodes of chest pressure EF 61%, no WMAs Continue aspirin, metoprolol, statin, SL nitro prn ?? Persistent a-fib, rate controlled HR controlled in 80-100s since admission, currently in A. fib [id number] Score: 3 (age, HTN, CAD) Continue metoprolol Continues on rivaroxaban EP consult appreciated NENO ruled out atrial Thrombus Dofetilide 500 mcg started twice daily-now we are decreasing to 250 mcg BID S/p cardioversion, patient is in NSR Syncope, isolated episode, resolved Likely vasovagal +head trauma, CT head with no bleed Cleared from c-collar, CT neck with no fractures Off telemetry at time of event Ortho positive Given IVF for 1 L of NS at 100 mL/hour, and then recheck orthostatics Continuous telemetry ?? HFpEF ProBNP elevated at ~450, CI reduced CXR negative for edema EF 61%, normal filling pressures on RHC Shortness of breath on exertion, in the setting of low cardiac index, may imply possible diastolic dysfunction No diuretics at this time Leukocytosis WBC 15->17 today Unclear etiology No fevers, signs of infection UA with no bacteria Suspected stress-induced We will follow ?? HTN BP: (128-144)/(58-84) over the last 24 hours Continue metoprolol ?? HLD TC 143, LDL 101, HDL 33, TG 93 (at OSH) Switched to rosuvastatin 10mg, myalgias in the past with higher doses of atorvastatin and simvastatin Monitor closely CODE STATUS: FULL CODE Patient seen and discussed with Ant Suarez MD Kelly H. LaFlamme, PA 07/31/2018 Pager [phone] 07/31/2018 I have seen the patient and reviewed the advanced practice provider's above history and I agree with the details as written. The assessment and plan were formulated in discussion with me and I agree with them as documented. * Fred Maki MD - 07/30/2018 3:30 PM EDT Patient seen 07/03/18 following cardioversion which he tolerated well Remains in sinus rhythm Subj: states he feels better since cardioversion - good energy - walked around the unit. Now states that he is interested inpursuing AF ablation as outpt. understands BP 119/64 (BP Location (NBP): Right arm, Patient Position: Sitting) Pulse 60 Temp 36.7 ??C (98.1 ??F) (Oral) Resp 18 Ht 188 cm (6' 2) Wt 96.9 kg (213 lb 10 oz) SpO2 96% BMI 27.43 kg/m2 A&O x 3 Lungs clear (hyperinflatted) Abd benign Extr no edema ECG: sinus rhythm/sinus bradycardia : Ventricular rate 58 BPM Final Atrial Rate 58 BPM Final P-R Interval 170 ms Final QRS Duration 74 ms Final Q-T Interval 490 ms Final QTC Calculated (Bezet) 481 ms Final Impression : symptomatic atrial fibrillation s/p DCCV, s/p dose # 3 of dofetilide, doing well Plan: 1) continue anticoagulation 2) continue dofetilde q12 hrs, ECG 2 hours post each dose 3) schedule outpatient AF ablation (NENO/CT/pre-op PPI etc) Fred Maki MD, PhD, [facility] Cardiac Electrophysiology * Corazon Allen, MORIAH - 07/30/2018 11:07 AM EDT CM continues to monitor for post hospital needs. Potential DC Friday. Pt started on Tikosyn po (consider possible preauth for medication). No home care needs identified. Corazon Allen RN Pager [phone] * Elena HooksJOSE - 07/30/2018 9:01 AM EDT Inpatient Cardiology Progress Note Patient Name: Agata Flores Service: UNIX SYSTEMS ADMINISTRATOR / PA Responsible Attending: Cameron Mahmood MD Reason for continued hospitalization: A-fib management Syncope Dofetilide load, cardioversion Active Problems: Active Hospital Problems Diagnosis ??? ASCVD (arteriosclerotic cardiovascular disease) PCI in 2005 at [facility]: stents to LAD x2, LCx x2, ramus ??? Atrial fibrillation Diagnosed 2017, on rivaroxaban, s/p DCCV ??? Hypertension ??? HLD (hyperlipidemia) ??? Chest pain Resolved Hospital Problems Diagnosis Date Resolved No resolved problems to display. Interval History: Mr. Flores had an uneventful night. He had no further lightheadedness or syncope yesterday. Orthostatics completed yesterday were positive and he was ordered for 1 L of normal salineat 100 mL an hour. Unfortunately this was stopped prior to 1 L when he left the floor for a NENO. Orthostatics were again positive this morning with a systolic of 130s while lying and systolic of 81 when standing. He was symptomatic with this, reported lightheadedness to nursing staff. He was started on dofetilide after his NENO last evening and his QTCs have been followed he is currently n.p.o. awaiting a cardioversion as coordinated by the EP team. Review of Systems: Review of Systems Respiratory: Negative for shortness of breath. Cardiovascular: Negative for chest pain and palpitations. Neurological: Positive for syncope. Negative for dizziness, facial asymmetry, light-headedness, numbness and headaches. All other systems reviewed and are negative. Telemetry: HR 90s, a-fib, occasional-frequent PVCs, couplets Meds: Scheduled Meds: ??? dofetilide 500 mcg Oral 2 times per day ??? rivaroxaban 20 mg Oral Daily with dinner ??? metoprolol tartrate 25 mg Oral Q6H POPPY ??? aspirin 81 mg Oral Daily ??? brimonidine 1 drop Both Eyes BID And ??? timolol 1 drop Both Eyes BID ??? rosuvastatin 10 mg Oral QPM Continuous Infusions: ??? sodium chloride 0.9% 100 mL/hr (07/29/18 1102) PRN Meds:nitroGLYcerin, acetaminophen Physical Exam: Vital Signs: Last value Range last 24 hrs Temperature Temp: 36.7 ??C (98.1 ??F) Temp: [36.1 ??C (97 ??F)-37.4 ??C (99.3 ??F)] Heart Rate Heart Rate: (!) 109 Heart Rate: [76-109] Blood Pressure BP: (!) 81/61 BP: (70-136)/(48-88) Respiratory Rate Resp: 18 Resp: [18-26] SpO2 SpO2: 95 % SpO2: [94 %-100 %] Intake/Output Summary (Last 24 hours) at 07/30/18 0901 Last data filed at 07/30/18 0400 Gross per 24 hour Intake 160 ml Output 650 ml Net -490 ml Patient Vitals for the past 168 hrs: Weight 07/30/18 0606 96.5 kg (212 lb 11.9 oz) 07/29/18 0530 96.8 kg (213 lb 6.5 oz) 07/28/18 0357 97.7 kg (215 lb 6.2 oz) 07/27/18 0346 98.2 kg (216 lb 7.9 oz) 07/26/18 1100 98.8 kg (217 lb 13 oz) Physical Exam Constitutional: He is oriented to person, place, and time. He appears well- developed and well-nourished. No distress. HENT: Head: Normocephalic and atraumatic. Eyes: EOM are normal. Pupils are equal, round, and reactive to light. Right eye exhibits no discharge. Left eye exhibits no discharge. Neck: Normal range of motion. Neck supple. No JVD present. Cardiovascular: Normal rate and normal heart sounds. Exam reveals no gallop and no friction rub. No murmur heard. Irregular ryhthm, afib Pulmonary/Chest: Effort normal and breath sounds normal. No respiratory distress. He has no wheezes. He has no rales. Abdominal: Soft. Bowel sounds are normal. He exhibits no distension. Musculoskeletal: Normal range of motion. He exhibits no edema or tenderness. Neurological: He is alert and oriented to person, place, and time. He has normal strength. Skin: Skin is warm and dry. He is not diaphoretic. Psychiatric: He has a normal mood and affect. His behavior is normal. Nursing note and vitals reviewed. Lab Comments: Recent Labs 07/30/18 0406 07/29/18 0517 07/28/18 0354 WBC 17.2* 15.6* 15.0* HGB 15.0 15.7 16.3 HCT 43.5 45.2 46.4 PLATELET 197 208 203 Recent Labs 07/26/18 1144 INR 1.2 Recent Labs 07/30/18 0406 07/29/18 0517 07/28/18 0354 NA 138 139 140 K 4.1 4.3 4.4 CL 101 102 103 CO2 24 25 26 BUN 19 20 19 CREATININE 0.81 0.86 0.83 No results for input(s): AST, ALT, ALKPHOS, BILITOT, BILIDIR in the last 168 hours. Recent Labs 07/30/18 0406 07/29/18 0517 07/28/18 0354 CALCIUM 9.3 9.4 9.7 MAGNESIUM 0.83 0.85 0.86 Recent Labs 07/26/18 2230 07/26/18 1631 07/26/18 1144 CK 23 22 <20 TROPONINT <0.01 <0.01 <0.01 Pertinent Radiographic/Diagnostic Results: ECG 07/30/2018 afib, no acute ST changes Echo 07/27/18 SUMMARY: 1. Mild concentric left ventricular hypertrophy is [...] report from 01/31/2015, there is no significant change Cardiac catheterization 07/27/18 Conclusions: * Nonobstructive coronary artery disease * Decreased cardiac output CT Head wo contrast 07/28/18: IMPRESSION No acute intracranial abnormality. Evidence of prior right-sided merritt hole procedure with underlying encephalomalacic change similar to prior MRI. Mild left maxillary paranasal sinus disease. Question related to adjacent dental disease. CT cervical spine 07/28/18: IMPRESSION No acute cervical spine fracture. NENO 07/29/18: Rhythm: A-Fib SUMMARY: 1. Limited NENO for left atrium and left atrial appendage evaluation. No thrombus is visualized within the left atrium or atrial appendage. 2. Biventricular systolic function appears preserved wtih an estimated LV ejection fraction of 60%. 3. There is moderate mitral regurgitation. 4. See remainder of report for additional findings. Assessment: Agata Flores is a 72 y.o. male with PMH of CAD (PCI in 2006, BRENDA distal LAD x2, distal LCx x2, ramus x1 at [facility]), HTN, HLD, persistent a-fib (diagnosed 6 weeks ago, s/p DCCV 3weeks ago, on xarelto), and brain abscess (s/p surgery and abx treatment in 2014) who presented to [facility] with progressive dyspnea and lightheadedness on exertion, as well as chest pressure. Cardiac enzymes negative, EKG without concerning findings. Echo shows EF 61%, no WMAs. Right and left heart catheterization reveals non-obstructive coronary disease, normal filling pressures, reduced CO/CI. Symptoms likely secondary to a-fib, as he was recently diagnosed and remains in a-fib despite DCCV and a ddition of beta miller. He was evaluated by our EP team and currently had plans for a NENO and antiarrhythmic drug load. Unfortunately this plan was delayed as he had an unwitnessed syncopal episode while in the bathroom with head trauma on 07/28. CT scan ruled out acute bleed and he was cleared from the c-collar. He underwent NENO yesterday which ruled out atrial thrombus. Dofetilide 500 mcg was started last evening and his QTC measurements have been followed pre-and post dose. He is received 2 doses so far and remains in A. fib rhythm. The electrophysiology team has scheduled him for cardioversion today. ?? Plan: Chest pressure, with h/o ASCVD Trend troponin, negative x3 LHC with nonobstructive CAD No further episodes of chest pressure EF 61%, no WMAs Continue aspirin, metoprolol, statin, SL nitro prn ?? Persistent a-fib, rate controlled HR controlled in 80-100s since admission, currently in A. fib [id number] Score: 3 (age, HTN, CAD) Continue metoprolol Continues on rivaroxaban EP consult appreciated NENO ruled out atrial Thrombus Dofetilide 500 mcg started twice daily-he has received 2 doses total Now n.p.o. for cardioversion per EP team Syncope, isolated episode Likely vasovagal +head trauma, CT head with no bleed Cleared from c-collar, CT neck with no fractures Off telemetry at time of event Ortho positive Give IVF for 1 L of NS at 100 mL/hour, and then recheck orthostatics Continuous telemetry ?? HFpEF ProBNP elevated at ~450, CI reduced CXR negative for edema EF 61%, normal filling pressures on RHC Shortness of breath on exertion, in the setting of low cardiac index, may imply possible diastolic dysfunction No diuretics at this time Leukocytosis WBC 15->17 today Unclear etiology No fevers, signs of infection UA with no bacteria Suspected stress-induced We will follow ?? HTN BP: (70-136)/(48-88) over the last 24 hours Continue metoprolol ?? HLD TC 143, LDL 101, HDL 33, TG 93 (at OSH) Switched to rosuvastatin 10mg, myalgias in the past with higher doses of atorvastatin and simvastatin Monitor closely CODE STATUS: FULL CODE Discussed with Cameron Mahmood MD Amanda King, APRN Cardiovascular Medicine 07/30/2018 Associated attestation - Cameron Mahmood MD - 07/30/2018 1:53 PM EDT Cardiology Attending Addendum I shared this visit with Elena Hooks APRN and guided the medical decision-making. * Garth Valdez RN - 07/29/2018 3:18 PM EDT Arrived from or per bed accompanied by steel erector apprentice. Phase I in progress. Patient has dry cough. States tickle in thrOAT. Denies shortness of breath or chest pain. * Elena Hooks, SUPERVISOR [employer]ING - 07/29/2018 11:49 AM EDT Inpatient Cardiology Progress Note Patient Name: Agata Flores Service: UNIX SYSTEMS ADMINISTRATOR / PA Responsible Attending: Cameron Mahmood MD Reason for continued hospitalization: Evaluation and management of chest pain S/p cardiac catheterization, non-obstructive disease EP consult for a-fib management Syncope Active Problems: Active Hospital Problems Diagnosis ??? ASCVD (arteriosclerotic cardiovascular disease) PCI in 2005 at [facility]: stents to LAD x2, LCx x2, ramus ??? Atrial fibrillation Diagnosed 2018, on rivaroxaban, s/p DCCV ??? Hypertension ??? HLD (hyperlipidemia) ??? Chest pain Resolved Hospital Problems Diagnosis Date Resolved No resolved problems to display. Interval History: Mr. Flores had an uneventful night. He had no further lightheadedness or syncope yesterday. A CT scan of his head ruled out an acute bleed, and a CT of his cervical spine ruled out any fracture. His neurological status remained intact and he was later cleared from his collar. Unfortunately telemetry was not on at the time of his event. Otherwise telemetry pre and post event review reveals mostly rate controlled afib. Review of Systems: Review of Systems Respiratory: Negative for shortness of breath. Cardiovascular: Negative for chest pain and palpitations. Neurological: Positive for syncope. Negative for dizziness, facial asymmetry, light-headedness, numbness and headaches. All other systems reviewed and are negative. Telemetry: HR 80s, a-fib, occasional PVCs, couplets Meds: Scheduled Meds: ??? rivaroxaban 20 mg Oral Daily with dinner ??? metoprolol tartrate 25 mg Oral Q6H POPPY ??? aspirin 81 mg Oral Daily ??? brimonidine 1 drop Both Eyes BID And ??? timolol 1 drop Both Eyes BID ??? rosuvastatin 10 mg Oral QPM Continuous Infusions: ??? sodium chloride 0.9% 100 mL/hr (07/29/18 1102) PRN Meds:ondansetron, nitroGLYcerin, acetaminophen Physical Exam: Vital Signs: Last value Range last 24 hrs Temperature Temp: 36.8 ??C (98.2 ??F) Temp: [36.7 ??C (98.1 ??F)-36.9 ??C (98.4 ??F)] Heart Rate Heart Rate: 76 (final HR, dropped to 36 during bp) Heart Rate: [73-101] Blood Pressure BP: 97/61 BP: (97-139)/(61-90) Respiratory Rate Resp: 18 Resp: [18-20] SpO2 SpO2: 97 % SpO2: [96 %-99 %] Intake/Output Summary (Last 24 hours) at 07/29/18 1150 Last data filed at 07/29/18 0900 Gross per 24 hour Intake 340 ml Output 900 ml Net -560 ml Patient Vitals for the past 168 hrs: Weight 07/29/18 0530 96.8 kg (213 lb 6.5 oz) 07/28/18 0357 97.7 kg (215 lb 6.2 oz) 07/27/18 0346 98.2 kg (216 lb 7.9 oz) 07/26/18 1100 98.8 kg (217 lb 13 oz) Physical Exam Constitutional: He is oriented to person, place, and time. He appears well- developed and well-nourished. No distress. HENT: Head: Normocephalic and atraumatic. Eyes: EOM are normal. Pupils are equal, round, and reactive to light. Right eye exhibits no discharge. Left eye exhibits no discharge. Neck: Normal range of motion. Neck supple. No JVD present. Cardiovascular: Normal rate and normal heart sounds. Exam reveals no gallop and no friction rub. No murmur heard. Irregular ryhthm, afib Pulmonary/Chest: Effort normal and breath sounds normal. No respiratory distress. He has no wheezes. He has no rales. Abdominal: Soft. Bowel sounds are normal. He exhibits no distension. Musculoskeletal: Normal range of motion. He exhibits no edema or tenderness. Neurological: He is alert and oriented to person, place, and time. He has normal strength. Skin: Skin is warm and dry. He is not diaphoretic. Psychiatric: He has a normal mood and affect. His behavior is normal. Nursing note and vitals reviewed. Lab Comments: Recent Labs 07/29/18 0517 07/28/18 0354 07/27/18 0346 WBC 15.6* 15.0* 14.7* HGB 15.7 16.3 15.7 HCT 45.2 46.4 44.4 PLATELET 208 203 207 Recent Labs 07/26/18 1144 INR 1.2 Recent Labs 07/29/18 0517 07/28/18 0354 07/27/18 0346 NA 139 140 138 K 4.3 4.4 4.4 CL 102 103 103 CO2 25 26 23 BUN 20 19 19 CREATININE 0.86 0.83 0.89 No results for input(s): AST, ALT, ALKPHOS, BILITOT, BILIDIR in the last 168 hours. Recent Labs 07/29/18 0517 07/28/18 0354 07/27/18 0346 CALCIUM 9.4 9.7 9.7 MAGNESIUM 0.85 0.86 0.86 Recent Labs 07/26/18 2230 07/26/18 1631 07/26/18 1144 CK 23 22 <20 TROPONINT <0.01 <0.01 <0.01 Pertinent Radiographic/Diagnostic Results: ECG 07/29/2018 afib, no acute ST changes Echo 07/27/18 SUMMARY: 1. Mild concentric left ventricular hypertrophy is [...] report from 01/31/2015, there is no significant change Cardiac catheterization 07/27/18 Conclusions: * Nonobstructive coronary artery disease * Decreased cardiac output Assessment: Agata Flores is a 72 y.o. male with PMH of CAD (PCI in 2006, BRENDA distal LAD x2, distal LCx x2, ramus x1 at [facility]), HTN, HLD, persistent a-fib (diagnosed 6 weeks ago, s/p DCCV 3weeks ago, on xarelto), and brain abscess (s/p surgery and abx treatment in 2014) who presented to [facility] with progressive dyspnea and lightheadedness on exertion, as well as chest pressure. Cardiac enzymes negative, EKG without concerning findings. Echo shows EF 61%, no WMAs. Right and left heart catheterization reveale non-obstructive coronary disease, normal filling pressures, reduced CO/CI. Symptoms likely secondary to a-fib, as he was recently diagnosed and remains in a-fib despite DCCV and a ddition of beta miller. He was evaluated by our EP team and currently has plans for a NENO and antiarrhythmic drug load. Unfortunately this plan was postponed as he had an unwitnessed syncopal episode while in the bathroom with head trauma. CT scan ruled out acute bleed and he was cleared from the c-collar. We will proceed with a NENO today. ?? Plan: Chest pressure, with h/o ASCVD Trend troponin, negative x3 LHC with nonobstructive CAD No further episodes of chest pressure EF 61%, no WMAs Continue aspirin, metoprolol, statin, SL nitro prn ?? Persistent a-fib, rate controlled HR controlled in 80-100s since admission [id number] Score: 3 (age, HTN, CAD) Continue metoprolol Continues on rivaroxaban EP consult appreciated NENO today to assess for thrombus Syncope, isolated episode Likely vasovagal +head trauma, CT head with no bleed Cleared from c-collar, CT neck with no fractures Off telemetry at time of event Ortho positive this morning Give IVF for 1 L of NS Continuous telemetry ?? HFpEF ProBNP elevated at ~450, CI reduced CXR negative for edema EF 61%, normal filling pressures on RHC Shortness of breath on exertion, in the setting of low cardiac index, may imply possible diastolic dysfunction Holding on diuretics at this time ?? HTN BP: (97-139)/(61-90) over the last 24 hours Continue metoprolol ?? HLD TC 143, LDL 101, HDL 33, TG 93 (at OSH) Switched to rosuvastatin 10mg, myalgias in the past with higher doses of atorvastatin and simvastatin Monitor closely CODE STATUS: FULL CODE Discussed with Cameron Mahmood MD Amanda King, APRN Cardiovascular Medicine 07/29/2018 Associated attestation - Cameron Mahmood MD - 07/29/2018 9:48 PM EDT Cardiology Attending Addendum I shared this visit with Elena Hooks APRN and guided the medical decision- making. I discussed with pt in more detail short and outboard motor assembler risk of afib ablation and drug therapy to maintain sinus rhythm. He expressed his interest to be considered for afb ablation after our discussion. * Fred Maki MD - 07/28/2018 5:28 PM EDT Cardiac Electrophysiology Unmonitored vasovagal episode this AM - -profound w/ head trauma - CT negative NENO deferred to 07/29. Tele remains 80's-105 w/ occasional ventricular ectopy. Await NENO to clear dofetilide initiation Fred Maki MD, PhD, [facility] Cardiac Electrophysiology * Stephanie Mcgraw RN - 07/28/2018 10:43 AM EDT 0845 :Mr Flores was finishing his shower , sitting on the toilet . He stated That he began to feel dizzy , put his call light on and notified the STOCK REPLENISHER that he was feeling dizzy.I ran to the Room For [facility], to find him on the floor, his head Pressed up against the door . I initially He did not respond only moaning , .within moments he was responding well and answering in full sentences . Code Kamran villagomez , pt was placed in neck immobilizer and returned to bed . Life safety assessed for neck/spine Fracture and Mr Flores was sent down for a stat CT of the head and neck * Elena Hooks APRN - 07/28/2018 9:50 AM EDT Inpatient Cardiology Progress Note Patient Name: Agata Flores Service: UNIX SYSTEMS ADMINISTRATOR / PA Responsible Attending: Cameron Mahmood MD Reason for continued hospitalization: Evaluation and management of chest pain S/p cardiac catheterization, non-obstructive disease EP consult for a-fib management Syncope Active Problems: Active Hospital Problems Diagnosis ??? ASCVD (arteriosclerotic cardiovascular disease) PCI in 2005 at [facility]: stents to LAD x2, LCx x2, ramus ??? Atrial fibrillation Diagnosed 2018, on rivaroxaban, s/p DCCV ??? Hypertension ??? HLD (hyperlipidemia) ??? Chest pain Resolved Hospital Problems Diagnosis Date Resolved No resolved problems to display. Interval History: Mr. Flores had an uneventful night. At approximately 0830 this morning the patienthad been up in the shower, reported feeling lightheaded and was assisted to a sitting position on the toilet by a nursing clinical director. When the nursing clinical director went to find other staff to help the patient transferred to bed, the patient had an unwitnessed episode of LOC and sustained a fall to the bathroom floor. His head did make contact with the floor. Per nursing staff loss of consciousness lasted approximately 1 minute and there was question as to whether or not the patient was adequately breathing. He quickly regained consciousness and was able to answer questions appropriately. He reported tenderness to his neck, though has some chronic neck discomfort at baseline per his reports. He was evaluated by this senior grant writer along with Dr. Mahmood once he regained consciousness. He was put in a c-collar as a precaution. Neurological state intact on exam. A stat CT of his head and neck were ordered. Review of Systems: Review of Systems Respiratory: Negative for shortness of breath. Cardiovascular: Negative for chest pain and palpitations. Neurological: Positive for syncope. Negative for dizziness, facial asymmetry, light-headedness, numbness and headaches. All other systems reviewed and are negative. Telemetry: HR 80s, a-fib, occasional-frequent PVCs, couplets Meds: Scheduled Meds: ??? rivaroxaban 20 mg Oral Daily with dinner ??? metoprolol tartrate 25 mg Oral Q6H POPPY ??? aspirin 81 mg Oral Daily ??? brimonidine 1 drop Both Eyes BID And ??? timolol 1 drop Both Eyes BID ??? rosuvastatin 10 mg Oral QPM Continuous Infusions: PRN Meds:nitroGLYcerin, acetaminophen Physical Exam: Vital Signs: Last value Range last 24 hrs Temperature Temp: 36.4 ??C (97.5 ??F) Temp: [36.4 ??C (97.5 ??F)-36.9 ??C (98.4 ??F)] Heart Rate Heart Rate: 70 Heart Rate: [70-95] Blood Pressure BP: (!) 144/94 BP: (107-144)/(53-104) Respiratory Rate Resp: 18 Resp: [14-30] SpO2 SpO2: 99 % SpO2: [95 %-99 %] Intake/Output Summary (Last 24 hours) at 07/28/18 0950 Last data filed at 07/28/18 0358 Gross per 24 hour Intake 500 ml Output 950 ml Net -450 ml Patient Vitals for the past 168 hrs: Weight 07/28/18 0357 97.7 kg (215 lb 6.2 oz) 07/27/18 0346 98.2 kg (216 lb 7.9 oz) 07/26/18 1100 98.8 kg (217 lb 13 oz) Physical Exam Constitutional: He is oriented to person, place, and time. He appears well- developed and well-nourished. No distress. HENT: Head: Normocephalic and atraumatic. Eyes: EOM are normal. Pupils are equal, round, and reactive to light. Right eye exhibits no discharge. Left eye exhibits no discharge. Neck: Normal range of motion. Neck supple. No JVD present. Cardiovascular: Normal rate and normal heart sounds. Exam reveals no gallop and no friction rub. No murmur heard. Irregular ryhthm, afib Pulmonary/Chest: Effort normal and breath sounds normal. No respiratory distress. He has no wheezes. He has no rales. Abdominal: Soft. Bowel sounds are normal. He exhibits no distension. Musculoskeletal: Normal range of motion. He exhibits no edema or tenderness. Neurological: He is alert and oriented to person, place, and time. He has normal strength. GCS eye subscore is 4. GCS verbal subscore is 5. GCS motor subscore is 6. Skin: Skin is warm and dry. He is not diaphoretic. Psychiatric: He has a normal mood and affect. His behavior is normal. Nursing note and vitals reviewed. Lab Comments: Recent Labs 07/28/18 0354 07/27/18 0346 07/26/18 1144 WBC 15.0* 14.7* 14.4* HGB 16.3 15.7 14.9 HCT 46.4 44.4 43.2 PLATELET 203 207 209 Recent Labs 07/26/18 1144 INR 1.2 Recent Labs 07/28/18 0354 07/27/18 0346 07/26/18 1144 NA 140 138 137 K 4.4 4.4 4.2 CL 103 103 102 CO2 26 23 24 BUN 19 19 20 CREATININE 0.83 0.89 0.82 No results for input(s): AST, ALT, ALKPHOS, BILITOT, BILIDIR in the last 168 hours. Recent Labs 07/28/18 0354 07/27/18 0346 07/26/18 1144 CALCIUM 9.7 9.7 9.4 MAGNESIUM 0.86 0.86 -- Recent Labs 07/26/18 2230 07/26/18 1631 07/26/18 1144 CK 23 22 <20 TROPONINT <0.01 <0.01 <0.01 Pertinent Radiographic/Diagnostic Results: ECG 07/28/2018 HR 81, afib, no acute ST changes Echo 07/27/18 SUMMARY: 1. Mild concentric left ventricular hypertrophy is [...] report from 01/31/2015, there is no significant change Cardiac catheterization 07/27/18 Conclusions: * Nonobstructive coronary artery disease * Decreased cardiac output Assessment: Agata Flores is a 72 y.o. male with PMH of CAD (PCI in 2006, BRENDA distal LAD x2, distal LCx x2, ramus x1 at [facility]), HTN, HLD, persistent a-fib (diagnosed 6 weeks ago, s/p DCCV 3weeks ago, on xarelto), and brain abscess (s/p surgery and abx treatment in 2014) who presented to [facility] with progressive dyspnea and lightheadedness on exertion, as well as chest pressure. Cardiac enzymes negative, EKG without concerning findings. Echo shows EF 61%, no WMAs. Right and left heart catheterization reveale non-obstructive coronary disease, normal filling pressures, reduced CO/CI. Symptoms likely secondary to a-fib, as he was recently diagnosed and remains in a-fib despite DCCV and a ddition of beta miller. He was evaluated by our EP team with plans for a NENO and antiarrhythmic drug load, though unfortunately had a unwitnessed syncopal episode while in the bathroom, hit his headwith + LOC. He will have a CT scan of his head and neck this morning before proceeding with any other testing or procedures. ?? Plan: Chest pressure, with h/o ASCVD Trend troponin, negative x3 LHC with nonobstructive CAD No further episodes of chest pressure EF 61%, no WMAs Continue aspirin, metoprolol, statin, SL nitro prn ?? Persistent a-fib, rate controlled HR controlled in 80-100s since admission [id number] Score: 4 (age, HTN, CAD) Continue metoprolol Continues on rivaroxaban-will hold tonight's dosing if CT scan of head shows any signs of bleed s/pfall EP consult appreciated Will hold on plan for NENO this morning until CT head and neck reviewed ?? HFpEF ProBNP elevated at ~450, CI reduced CXR negative for edema EF 61%, normal filling pressures on RHC Shortness of breath on exertion, in the setting of low cardiac index, may imply possible diastolic dysfunction Holding on diuretics at this time ?? HTN BP: (107-144)/(53-104) over the last 24 hours Continue metoprolol ?? HLD TC 143, LDL 101, HDL 33, TG 93 (at OSH) Switched to rosuvastatin 10mg, myalgias in the past with higher doses of atorvastatin and simvastatin Monitor closely CODE STATUS: FULL CODE Discussed with Cameron Mahmood MD Amanda King, APRN Cardiovascular Medicine 07/28/2018 Associated attestation - Cameron Mahmood MD - 07/28/2018 7:20 PM EDT Cardiology Attending Addendum I shared this visit with Elena Jessee SUPERVISOR [employer]FINING and guided the medical decision-making. * Deonna Rasheed, SUPERVISOR [employer] REFINING - 07/27/2018 1:28 PM EDT Inpatient Cardiology Progress Note Patient Name: Agata Flores Service: UNIX SYSTEMS ADMINISTRATOR / PA Responsible Attending: Cameron Mahmood MD Reason for continued hospitalization: Evaluation and management of chest pain S/p cardiac catheterization, non-obstructive disease EP consult for a-fib management Active Problems: Active Hospital Problems Diagnosis ??? ASCVD (arteriosclerotic cardiovascular disease) PCI in 2005 at [facility]: stents to LAD x2, LCx x2, ramus ??? Atrial fibrillation Diagnosed 2018, on rivaroxaban, s/p DCCV ??? Hypertension ??? HLD (hyperlipidemia) ??? Chest pain Resolved Hospital Problems Diagnosis Date Resolved No resolved problems to display. Interval History: Mr. Flores felt well overnight, he denies chest pain or shortness of breath. He had right and left heart cath this morning, which showed non-obstructive disease, normal filling pressures, and reduced CO/CI. He is in agreement with EP antiarrhythmic drug load, and understands he will need a NENO first. Review of Systems: Review of Systems Respiratory: Negative for shortness of breath. Cardiovascular: Negative for chest pain. All other systems reviewed and are negative. Telemetry: HR 75-110, a-fib, frequent PVCs Meds: Scheduled Meds: ??? rivaroxaban 20 mg Oral Daily with dinner ??? metoprolol tartrate 25 mg Oral Q6H POPPY ??? aspirin 81 mg Oral Daily ??? brimonidine 1 drop Both Eyes BID And ??? timolol 1 drop Both Eyes BID ??? rosuvastatin 10 mg Oral QPM Continuous Infusions: ??? sodium chloride 0.9% 100 mL/hr (07/27/18 1142) PRN Meds:nitroGLYcerin, acetaminophen Physical Exam: Vital Signs: Last value Range last 24 hrs Temperature Temp: 36.6 ??C (97.9 ??F) Temp: [36.4 ??C (97.5 ??F)-36.8 ??C (98.2 ??F)] Heart Rate Heart Rate: 74 Heart Rate: [67-95] Blood Pressure BP: 118/75 BP: (112-143)/(63-104) Respiratory Rate Resp: 18 Resp: [14-30] SpO2 SpO2: 98 % SpO2: [95 %-99 %] Intake/Output Summary (Last 24 hours) at 07/27/18 1338 Last data filed at 07/27/18 0900 Gross per 24 hour Intake 0 ml Output 1300 ml Net -1300 ml Patient Vitals for the past 168 hrs: Weight 07/27/18 0346 98.2 kg (216 lb 7.9 oz) 07/26/18 1100 98.8 kg (217 lb 13 oz) Physical Exam Constitutional: He is oriented to person, place, and time. He appears well- developed and well-nourished. No distress. HENT: Head: Normocephalic and atraumatic. Eyes: Right eye exhibits no discharge. Left eye exhibits no discharge. Neck: Normal range of motion. Neck supple. No JVD present. Cardiovascular: Normal rate and normal heart sounds. Exam reveals no gallop and no friction rub. No murmur heard. Irregular ryhthm, afib Pulmonary/Chest: Effort normal and breath sounds normal. No respiratory distress. He has no wheezes. He has no rales. Abdominal: Soft. Bowel sounds are normal. He exhibits no distension. Musculoskeletal: Normal range of motion. He exhibits no edema. Neurological: He is alert and oriented to person, place, and time. Skin: Skin is warm and dry. He is not diaphoretic. Psychiatric: He has a normal mood and affect. His behavior is normal. Nursing note and vitals reviewed. Lab Comments: Recent Labs 07/27/18 0346 07/26/18 1144 WBC 14.7* 14.4* HGB 15.7 14.9 HCT 44.4 43.2 PLATELET 207 209 Recent Labs 07/26/18 1144 INR 1.2 Recent Labs 07/27/18 0346 07/26/18 1144 NA 138 137 K 4.4 4.2 CL 103 102 CO2 23 24 BUN 19 20 CREATININE 0.89 0.82 No results for input(s): AST, ALT, ALKPHOS, BILITOT, BILIDIR in the last 168 hours. Recent Labs 07/27/18 0346 07/26/18 1144 CALCIUM 9.7 9.4 MAGNESIUM 0.86 -- Recent Labs 07/26/18 2230 07/26/18 1631 07/26/18 1144 CK 23 22 <20 TROPONINT <0.01 <0.01 <0.01 Pertinent Radiographic/Diagnostic Results: ECG 07/27/2018 HR 75, afib, no acute ST changes Echo 07/27/18 SUMMARY: 1. Mild concentric left ventricular hypertrophy is [...] report from 01/31/2015, there is no significant change Cardiac catheterization 07/27/18 Conclusions: * Nonobstructive coronary artery disease * Decreased cardiac output Assessment: Agata Flores is a 72 y.o. male with PMH of CAD (PCI in 2006, BRENDA distal LAD x2, distal LCx x2, ramus x1 at [facility]), HTN, HLD, persistent a-fib (diagnosed 6 weeks ago, s/p DCCV 3weeks ago, on xarelto), and brain abscess (s/p surgery and abx treatment in 2014) who presented to [facility] with progressive dyspnea and lightheadedness on exertion, as well as chest pressure. Cardiac enzymes negative, EKG without concerning findings. Echo shows EF 61%, no WMAs. Right and left heart catheterization reveal non-obstructive coronary disease, normal filling pressures, reduced CO/CI. Symptoms likely secondary to a-fib, as he was recently diagnosed and remains in a-fib despite DCCV and ad dition of beta miller. Plan for EP consult with NENO and antiarrhythmic drug load. ?? Plan: Chest pressure, with h/o ASCVD Trend troponin, negative x1 No further episodes of chest pressure EF 61%, no WMAs S/p cath, non-obstructive disease Continue aspirin, metoprolol, statin, SL nitro prn ?? Persistent a-fib, rate controlled HR controlled in 45123u since admission [id number] Score: 4 (age, HTN, CAD) Continue metoprolol, restart rivaroxaban tonight EP consult placed, NENO ordered in preparation for antiarrhythmic drug load ?? HFpEF ProBNP elevated at ~450, CI reduced CXR negative for edema EF 61%, normal filling pressures on RHC Shortness of breath on exertion, in the setting of low cardiac index, may imply possible heart failure even in the setting of preserved EF ?? HTN BP: (112-143)/(63-104) over the last 24 hours Continue metoprolol ?? HLD TC 143, LDL 101, HDL 33, TG 93 (at OSH) Switched to rosuvastatin 10mg, myalgias in the past with higher doses of atorvastatin and simvastatin Code status: Full code Discussed with Cameron Mahmood MD. Deonna Rasheed, MSN, PATTERNMAKER PLASTER-, JOSE 07/27/2018 Pager [phone] Associated attestation - Cameron Mahmood MD - 07/27/2018 3:58 PM EDT Cardiology Attending Addendum I shared this visit with Deonna Rasheed APRN, and guided the medical decision-making. * Min Jeffery II - 07/27/2018 11:33 AM EDT Agata Flores July 27, 2018 [id number] [phone] Enhanced Environmental Operator - Preliminary Findings Procedures: coronary angiography left heart catheterization Technique: Seldinger via right radial artery. Seldinger via right median antecubital vein. Heparin:5,000U administered. Contrast: 100cc Omnipaque. Radiation: Fluoro time: 10.4 minutes, dose area product: 99,919 mGYcm2 and air kerma: 1,384 mGY. Findings: Hemodynamics: Syst Diast EDP a v m RA 1 1 1 RV 25 2 PA 27 15 19 PCW 21 15 Ao 101 67 82 LV 110 8 Profile 1 Profile 2 CO 3.79 3.70 CI 1.68 1.64 TSR 1,731 1,773 SVR 1,710 1,751 TPR 401 411 PVR 84 86 Technique Estimated Pancho Thermodilution Coronary Angiography: Right Dominant LM Entire vessel - Mild diffuse. LAD Entire vessel - Stent Patent - Mild diffuse. LCX Entire vessel - Stent Patent - Mild diffuse. RCA Entire vessel - Mild diffuse. Distal - 40%. Ramus Entire vessel - Stent Patent - Mild diffuse. Complications/Events: None The attending physician was present for the entire procedure. Dr. Min Jeffery M.D. performed the coronary angiography and left heart catheterization. Prior to initiation of the procedure, the patient's frailty score was determined to be: 4 (see definitions below). Definitions from [place] Study of Health and Aging Clinical Frailty Scale: 1: VERY FIT: energetic, exercising regularly 2: WELL: no active disease symptoms, exercising occasionally or seasonally 3: MANAGING WELL: well-controlled medical problems, no exercise more than routine walking 4: VULNERABLE: symptoms limit activities, though not dependent on others for daily help. Often complain for being slowed up or tired 5: MILDLY FRAIL: more evidently impaired, needing help with high order ADLs such as finances, transportation, heavy housework, medications, walking outside, meal preparation 6: MODERATELY FRAIL: requiring help with all outside activities and with minor hot worker. May need help with bathing and dressing. 7: SEVERELY FRAIL: completely dependent for personal care, but stable and not at high risk of dyingwithin 6 months 8: VERY SEVERELY FRAIL: completely dependent, approaching end of life. Not likely to recover from even minor added illness 9: TERMINALLY ILL: Life expectancy of less than 6 months, even if not otherwise frail Darion Machado M.D. (Fellow) Min Jeffery M.D. * Kalyan Lion RN - 07/27/2018 5:21 AM EDT OUTCOME EVALUATION NOTE: OUTCOME SUMMARY: Uneventful night. Slept in between care. Denied any pain or sob. VS WNL, see flowsheet. afib on tele. PLAN MOVING FORWARD: NPO for cath today. Pre cath fluids. INDIVIDUALIZED FALL PREVENTION INTERVENTIONS: Patient-specific fall risk factors per assessment: [current deficits]: New environment Assistance [level of assistance required for transfers and ambulation]: Standby Supervision [direct monitoring required during toileting and ADLs]: Independent Surveillance [continuous indirect monitoring]: Tele, purposeful rounding, call hinkle in reach Patient-specific fall prevention interventions for sensory deficits provided, if applicable: no CPG GOAL OUTCOME EVALUATION: ongoing documented in this encounter H&P Notes * Deonna Rasheed, SUPERVISOR [employer] - 07/26/2018 11:05 AM EDT Cardiology Admission H&P Patient Name: Agata Flores Date of : 1945 Age: 72 y.o. Hospital Admit Date: 07/26/2018 Inpatient Attending: Cameron Mahmood MD PCP: Agata Barrera, Presenting Diagnosis/Chief Complaint: Chest pressure Active Problem List: Active Hospital Problems Diagnosis ??? ASCVD (arteriosclerotic cardiovascular disease) PCI in 2005 at [facility]: stents to LAD x2, LCx x2, ramus ??? Atrial fibrillation Diagnosed 2017, on rivaroxaban, s/p DCCV ??? Hypertension ??? HLD (hyperlipidemia) ??? Chest pain Resolved Hospital Problems Diagnosis Date Resolved No resolved problems to display. History of Present Illness: HPI: Mr. Flores is a 72 year-old male with PMH of CAD (PCI in 2006, BRENDA distal LAD x2, distal LCx x2, ramus x1 at [facility]), HTN, HLD, persistent a-fib (diagnosed 6 weeks ago, s/p DCCV 3 weeks ago, on xarelto), and brain abscess (s/p surgery and abx treatment in 2014) who presented to [facility] with progressive dyspnea and lightheadedness on exertion, as well as chest pressure. He reports that over the last few months, he has noticed progressive shortness of breath and lightheadedness with exertion, which is now occurring with only minimal exertion. These are similar to the symptoms he experienced before his stents were placed in 2006. He was diagnosed with a-fib about six weeks ago when hewent to the hospital for these symptoms- was started on metoprolol and xarelto. He had DCCV about three weeks ago, which successfully converted him back to SR, but this only lasted about one week before he converted back into a-fib. Of note, he reports that the shortness of breath and dizziness improved during the time that he was presumed to be in sinus rhythm. His stick puller, Dr. Ma, had also scheduled him for an outpatient nuclear stress test to be done in the coming weeks. On Friday, 07/24, he had an episode of chest pressure, occurring with his shortness of breath and lightheadedness on exertion. It was relieved with rest. He went to [facility] ED and was in a-fib with HR 80. Troponins were negative, EKG was without concerning findings. He was admitted to await transfer [place] [facility] [place]diac catheterization, given his history of ASCVD. He had one additional episode of chest pressureon exertion while at [facility], when he had gotten up to walk over to the chair in his room. HR was in the 110s at the time. He was started on imdur 15mg with no further episodes of chest pain. He has aspirin listed as an allergy on his medication list. He reports nosebleeds with aspirin therapy for longer than 1-2 weeks in the past. He was started on aspirin at [facility] without side effects. Past Medical History: Past Medical History: Diagnosis Date ??? A-fib ??? Brain abscess ??? CAD (coronary artery disease) ??? HLD (hyperlipidemia) ??? HTN (hypertension) Surgical History/Problems: Past Surgical History: Procedure Laterality Date ??? PRO STEREO BX/ASPIR/EXCIS, INTRACRANIAL LESN Right 01/27/2015 @STEREOTACTIC BX,ASP, OR EXC.-INTRACRANIAL LESION, W/SCAN performed by Jose Small MD at [facility] MAIN OR ??? PRO STEREOTACTIC CPTR ASSTD PX CRANIAL, INTRADURAL Right 01/27/2015 STEREOTACTIC COMPUTER-ASSTD NAVIGATIONAL CRANIAL INTRADURAL performed by Jsoe Small MD at [facility] MAIN OR Significant Family History: Family History Problem Relation Age of Onset ??? Alzheimer Disease Brother Social History: Social History Social History ??? Marital status: Spouse name: N/A ??? Number of children: N/A ??? Years of education: N/A Occupational History ??? Not on file. Social History Main Topics ??? Smoking status: Never Smoker ??? Smokeless tobacco: Never Used ??? Alcohol use Not on file Comment: 2-3 drinks/night ??? Drug use: No ??? Sexual activity: Not on file Other Topics Concern ??? 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: Review of Systems Constitutional: Positive for activity change (limited by shortness of breath). Negative for appetite change, chills, diaphoresis, fatigue, fever and unexpected weight change. HENT: Negative for congestion, hearing loss and nosebleeds. Eyes: Positive for visual disturbance (occasional, uses eyedrops). Respiratory: Positive for shortness of breath (with minimal exertion). Negative for cough and wheezing. Cardiovascular: Positive for chest pain (intermittent pressure). Negative for palpitations and leg swelling. Gastrointestinal: Negative for abdominal distention, abdominal pain, constipation, diarrhea, nauseaand vomiting. Genitourinary: Negative for difficulty urinating. Musculoskeletal: Positive for gait problem (LLE residual, trouble with coordination). Negative for arthralgias. Neurological: Positive for light-headedness (intermittent). Negative for dizziness, syncope and weakness. Psychiatric/Behavioral: Negative for confusion and suicidal ideas. Medications: Prescriptions Prior to Admission Medication Sig Dispense Refill Last Dose ??? metoprolol tartrate (LOPRESSOR) 50 mg Tablet Take 50 mg by mouth 2 times daily. ??? Brimonidine-Timolol (COMBIGAN) 0.2-0.5 % Drops Apply 1 drop to eye 2 times daily. ??? rivaroxaban (XARELTO) 20 mg Tablet Take 20 mg by mouth daily. ??? atorvastatin (LIPITOR) 10 mg Tablet Take 10 mg by mouth daily. Taking at Unknown time Allergies: Allergies Allergen Reactions ??? Bee Pollen Anaphylaxis Bee Stings Use to carry Epi Pen, ??? Penicillins Angioedema States as a child, had facial, lip swelling. ??? Shellfish Containing Products Nausea And Vomiting SHRIMP only. Blotches, swelling, ??? Aspirin Nosebleeds after 2 weeks of therapy ??? Ceftriaxone leukopenia ??? Keppra [Levetiracetam] leukopenia ??? Simvastatin Myalgia PHYSICAL EXAM: Last set of vital signs: BP 138/80 (BP Location (NBP): Left arm) Pulse 84 Temp 36.9 ??C (98.4 ??F) Resp 18 Ht 188 cm (6' 2) Wt 98.8 kg (217 lb 13 oz) SpO2 98% BMI 27.97 kg/m2 Physical Exam Constitutional: He is oriented to person, place, and time. He appears well- developed and well-nourished. No distress. HENT: Head: Normocephalic and atraumatic. Eyes: Right eye exhibits no discharge. Left eye exhibits no discharge. Neck: Normal range of motion. Neck supple. No JVD present. Cardiovascular: Normal rate, normal heart sounds and intact distal pulses. Exam reveals no gallop and no friction rub. No murmur heard. Irregular rhythm Pulmonary/Chest: Effort normal. No respiratory distress. He has no wheezes. He has rales (right base). Abdominal: Soft. Bowel sounds are normal. He exhibits no distension. There is no tenderness. Musculoskeletal: Normal range of motion. He exhibits no edema. Neurological: He is alert and oriented to person, place, and time. Skin: Skin is warm and dry. He is not diaphoretic. Psychiatric: He has a normal mood and affect. His behavior is normal. Nursing note and vitals reviewed. Diagnostics: ECG 07/26/2018 HR 93, a-fib with PVC, no acute ST changes, poor R wave progression CXR 07/24/18 @ OSH Conclusion: Mild cardiomegaly. No acute abnormality. LABS: Recent Results (from the past 24 hour(s)) Basic Metabolic Panel (non-fasting) Result Value Ref Range Glucose Lvl 118 65 - 199 mg/dL BUN 20 10 - 20 mg/dL Creatinine 0.82 0.80 - 1.50 mg/dL Sodium 137 135 - 145 mmol/L Potassium 4.2 3.5 - 5.0 mmol/L Chloride 102 98 - 107 mmol/L CO2 24 22 - 31 mmol/L Anion Gap 11 5 - 15 mmol/L Calcium 9.4 8.5 - 10.5 mg/dL eGFR 88 >=60 mL/min/1.73 m?? eGFR 102 >=60 mL/min/1.73 m?? Cardiac Enzymes (LEB/CGP) Result Value Ref Range Troponin-T <0.01 0.00 - 0.00 ng/mL pro-Brain Natriuretic Peptide Result Value Ref Range ProBNP 453 (H) <=125 pg/mL Prothrombin Time Result Value Ref Range PT 13.4 (H) 9.4 - 12.5 sec INR 1.2 APTT Result Value Ref Range PTT 34 25 - 37 sec Hemogram Result Value Ref Range WBC 14.4 (H) 4.0 - 9.5 x10(3)/mcL RBC 4.73 4.58 - 5.54 x10(6)/mcL Hemoglobin 14.9 13.7 - 16.5 gm/dL Hematocrit 43.2 40.5 - 48.5 % MCV 91.3 82.9 - 93.1 fL MCH 31.5 27.5 - 32.1 pg MCHC 34.5 32.0 - 35.7 gm/dL Platelets 209 145 - 357 x10(3)/mcL RDWSD 41.9 36.0 - 45.0 fL RDWCV 12.7 11.4 - 13.8 % MPV 11.1 7.6 - 12.9 fL nRBC % Auto 0.0 % nRBC Abs Auto 0.000 0.000 - 0.000 x10(3)/mcL Differential, Automated Result Value Ref Range Neutrophils % 43.7 % Neutr Abs (ANC) 6.32 (H) 1.70 - 6.10 x10(3)/mcL Lymphocytes % 11.7 % Lymphocytes Abs 1.7 0.9 - 3.2 x10(3)/mcL Monocytes % 5.7 % Monocyte Abs 0.8 0.3 - 0.9 x10(3)/mcL Eosinophils % 38.1 % Eosinophils Abs 5.5 (H) 0.0 - 0.4 x10(3)/mcL Basophils % 0.5 % Basophils Abs 0.1 0.0 - 0.1 x10(3)/mcL Immature Gran % 0.30 % Dana Gran Abs 0.04 0.00 - 0.04 x10(3)/mcL Scan, Peripheral Blood Result Value Ref Range Plat Estimate Normal RBC Morphology Normal ASSESSMENT: Mr. Flores is a 72 year-old male with PMH of CAD (PCI in 2006, BRENDA distal LAD x2, distalLCx x2, ramus x1 at [facility]), HTN, HLD, persistent a-fib (diagnosed 6 weeks ago, s/p DCCV 3 weeks ago, on xarelto), and brain abscess (s/p surgery and abx treatment in 2014) who presented to [facility] with progressive dyspnea and lightheadedness on exertion, as well as chest pressure. Cardiac enzymes negative at OSH, EKG without concerning findings. Will proceed with cardiac catheterization to rule out ischemia given similarity of symptoms to angina prior to stent placement. Symptoms could also be secondary to a-fib, as he was recently diagnosed and remains in a-fib despite DCCV and addition of beta miller. TREATMENT PLAN: Chest pressure, with h/o ASCVD Trend troponin, negative x1 Echo ordered (last echo in March 2018 showed EF 60-65%, no WMAs, per [facility] notes) Plan for cardiac catheterization tomorrow No plavix or heparin at this time Continue aspirin, metoprolol, statin, SL nitro prn Persistent a-fib, rate controlled HR controlled in 80s since admission [id number] Score: 4 (age, HTN, CAD) Continue metoprolol Rivaroxaban stopped (last dose 07/23 pm) Low risk for stroke, no indication for bridge therapy Consider rhythm control strategies if no ischemia to explain symptoms on cath HFpEF ProBNP ~450 CXR negative for edema Echo pending, EF 60-65% in March Will get RHC tomorrow to assess HTN BP: (138)/(80) BP since admission Continue metoprolol HLD TC 143, LDL 101, HDL 33, TG 93 (at OSH) Switched to rosuvastatin 10mg, myalgias in the past with higher doses of atorvastatin and simvastatin Code status: Full code Discussed with Cameron Mahmood MD. Deonna Rasheed, MSN, PATTERNMAKER P[employer]ER-ANDREEA, JOSE 07/26/2018 Pager [phone] Associated attestation - Cameron Mahmood MD - 07/26/2018 7:48 PM EDT Cardiology Attending Addendum I shared this visit with Deonna Rasheed APRN, and guided the medical decision-making. documented in this encounter Procedure Notes * Miguel De Los Santos PA - 07/30/2018 12:09 PM EDTAssociated Order(s): CARDIOVERSION-OR Procedure(s): CARDIOVERSION-OR Pre-Procedure Diagnose(s): Persistent atrial fibrillation Direct Current Cardioversion Procedure Note: Date of Procedure: 07/26/2018 Attending: Fred Maki MD PA: Miguel De Los Santos PA Indication: persistent atrial fibrillation Patient Active Problem List Diagnosis ??? ASCVD (arteriosclerotic cardiovascular disease) PCI in 2005 at [facility]: stents to LAD x2, LCx x2, ramus ??? Atrial fibrillation Diagnosed 2018, on rivaroxaban, s/p DCCV ??? Hypertension ??? HLD (hyperlipidemia) ??? Chest pain ??? Brain abscess The patient was brought to the procedure room in the fasting state with an intravenous line in place. After answering all of the patient's questions and assuring informed consent, and with the anesthesiology service assisting with sedation and airway management, the patient transiently was anesthetized. The electrode pads were placed in the following position: (X) Right anterior, left scapular ( ) Left anterior, left scapular ( ) Right upper parasternal and apical ( ) Other: The patient received #1 synchronized discharge(s) at the maximal discharge of 150wsec joules. NSR restored successfully: (X) Yes ( ) Yes, but with early relapse ( ) No Complications: The patient subsequently awoke with no memory of the cardioversion, and there were no apparent complications. Provider Instructions: A follow up 12-lead ECG will be obtained. documented in this encounter Miscellaneous Notes * Plan of Care - Mally Malcolm RN - 08/01/2018 4:33 AM EDT Problem: Patient Care Overview Goal: Plan of Care Review Outcome: Ongoing (Interventions Implemented as Appropriate) 07/31/18 1526 07/31/18 2100 Coping/Psychosocial Plan Of Care Reviewed With -- patient Plan of Care Review Progress improving -- OUTCOME EVALUATION NOTE: OUTCOME SUMMARY: VSS, no c/o of pain or discomfort. 5th Tikosyn dose given, Qtc 0.44 (per tele) prior to dose and 0.52 (per EKG) 2.5 hours after dose. MD notified. Pt able to rest between care. PLAN MOVING FORWARD: D/c home today (needs early order for home meds prior to d/c) INDIVIDUALIZED FALL PREVENTION INTERVENTIONS: Patient-specific fall risk factors per assessment: [current deficits]: Telemetry, unfamiliar environment Assistance [level of assistance required for transfers and ambulation]: SBA, non-stick socks/slippers Supervision [direct monitoring required during toileting and ADLs]: Eyes on, arms reach, hand on Surveillance [continuous indirect monitoring]: Hourly purposeful rounding, call hinkle in reach Patient-specific fall prevention interventions for sensory deficits provided, if applicable: Lighting adjusted for task/safety, glasses CPG GOAL OUTCOME EVALUATION: Ongoing Goal: Fall Prevention-Safe Patient Handling Outcome: Ongoing (Interventions Implemented as Appropriate) 07/31/182099 Activity Activity Type activity adjusted per tolerance Activity Assistance Provided assistance, stand-by Assistive Device Utilized none Daily Care Interventions Self-Care Promotion independence encouraged Dunn Fall Risk History of Falling 25 Secondary Diagnosis 15 Ambulatory Aids 0 Intravenous Therapy/Heparin/Saline Lock 20 Gait/Transferring 0 Mental Status 0 Score 60 OTHER Dunn Fall Risk High Restraint Interventions Safety Promotion/Fall Prevention activity supervised;nonskid shoes/slippers when out of bed;safety round/check completed;fall prevention program maintained Positioning Body Position independent Goal: Infection Control Outcome: Ongoing (Interventions Implemented as Appropriate) 07/31/182099 Safety Interventions Isolation Precautions standard precautions maintained Infection Prevention environmental surveillance performed;rest/sleep promoted Coping Strategies Supportive Measures active listening utilized;decision-making supported;positive reinforcement provided;self-care encouraged;verbalization of feelings encouraged Problem: Arrhythmia/Dysrhythmia (Symptomatic) (Adult) Goal: Signs and Symptoms of Listed Potential Problems Will be Absent, Minimized or Managed (Arrhythmia/Dysrhythmia) Signs and symptoms of listed potential problems will be absent, minimized or managed by discharge/transition of care (reference Arrhythmia/Dysrhythmia (Symptomatic) (Adult) CPG). Outcome: Ongoing (Interventions Implemented as Appropriate) 07/31/182099 Arrhythmia/Dysrhythmia (Symptomatic) Problems Assessed (Arrhythmia/Dysrhythmia) all Problems Present (Arrhythmia/Dysrhythmia) none * Plan of Care - Amadeo Espinosa RN - 07/31/2018 3:33 PM EDT Problem: Patient Care Overview Goal: Plan of Care Review Outcome: Ongoing (Interventions Implemented as Appropriate) 07/31/18 1526 Coping/Psychosocial Plan Of Care Reviewed With patient Plan of Care Review Progress improving OUTCOME EVALUATION NOTE: OUTCOME SUMMARY: A+O x4. Denies CP, denies SOB. Ambulates without difficulty. Dofetilide reduced to 250mcg pe dose. Dose 4 given at 1030 after EP decide to reduce dosage. 2h post EKG taken. Need to D/C patient in AM OR get scripts to family to bring [place] [facility] to ensure receipt prior to close at 2pm. PLAN MOVING FORWARD: D/C on Friday home/ INDIVIDUALIZED FALL PREVENTION INTERVENTIONS: Patient-specific fall risk factors per assessment: [current deficits]: Large, prior falls, ecg wires, IV sites Assistance [level of assistance required for transfers and ambulation]: SBA Supervision [direct monitoring required during toileting and ADLs]: Independent Surveillance [continuous indirect monitoring]: Telemetry, family @ bedside during day, freq rounding, call hinkle in reach Patient-specific fall prevention interventions for sensory deficits provided, if applicable: [X] Yes CPG GOAL OUTCOME EVALUATION: * Plan of Care - Jordon Cat RN - 07/31/2018 5:02 AM EDT Problem: Patient Care Overview Goal: Plan of Care Review Outcome: Ongoing (Interventions Implemented as Appropriate) 07/30/18 1854 07/30/182009 Coping/Psychosocial Plan Of Care Reviewed With -- patient Plan of Care Review Progress improving -- OUTCOME EVALUATION NOTE: OUTCOME SUMMARY: Uneventful night for Agata. He denies SOB and pain. VS as documented. Tikosyn load continued. PLAN MOVING FORWARD: Continue Tikosyn loading, d/c friday INDIVIDUALIZED FALL PREVENTION INTERVENTIONS: Patient-specific fall risk factors per assessment: [current deficits]: Unfamiliar environment, pastfalls, generalized weakness, ecg leads, IV Assistance [level of assistance required for transfers and ambulation]: 1 assist Supervision [direct monitoring required during toileting and ADLs]: Hands on Surveillance [continuous indirect monitoring]: Purposeful hourly rounding, call hinkle within reach Patient-specific fall prevention interventions for sensory deficits provided, if applicable: [X] Yes CPG GOAL OUTCOME EVALUATION: Ongoing * Plan of Care - Amadeo Espinosa RN - 07/30/2018 6:56 PM EDT Problem: Patient Care Overview Goal: Plan of Care Review Outcome: Ongoing (Interventions Implemented as Appropriate) 07/30/18 1854 Coping/Psychosocial Plan Of Care Reviewed With patient;spouse Plan of Care Review Progress improving OUTCOME EVALUATION NOTE: OUTCOME SUMMARY: A+O x4. NSR post cardioversion. Pt ambulated around floor (2x) and to bathroom without syncope, weakness or dizziness. PLAN MOVING FORWARD: Continue Tikosyn protocol until Friday- expected D/C on Friday. INDIVIDUALIZED FALL PREVENTION INTERVENTIONS: Patient-specific fall risk factors per assessment: [current deficits]: Hx afib, ecg wires, Iv sites, prior fall Assistance [level of assistance required for transfers and ambulation]: SBA Supervision [direct monitoring required during toileting and ADLs]: Independent Surveillance [continuous indirect monitoring]: Call hinkle in reach, family @ bedside, telemetry, Patient-specific fall prevention interventions for sensory deficits provided, if applicable: [X] Yes CPG GOAL OUTCOME EVALUATION: * Plan of Care - Diane Duran RN - 07/30/2018 4:17 AM EDT Problem: Patient Care Overview Goal: Plan of Care Review OUTCOME EVALUATION NOTE: OUTCOME SUMMARY: Uneventful evening. Rested well. Denies complaints. Started Tikosyn at 2100 with QTC 0.42. Call light and urinal within reach. PLAN MOVING FORWARD: Continue Tikosyn Cardioversion INDIVIDUALIZED FALL PREVENTION INTERVENTIONS: Patient-specific fall risk factors per assessment: [current deficits]: Tubings, wires Assistance [level of assistance required for transfers and ambulation]: sba Supervision [direct monitoring required during toileting and ADLs]: sba Surveillance [continuous indirect monitoring]: Hourly rounding, telemetry Patient-specific fall prevention interventions for sensory deficits provided, if applicable: [X] N/A CPG GOAL OUTCOME EVALUATION: * Plan of Care - Amadeo Espinosa RN - 07/29/2018 4:25 PM EDT Problem: Patient Care Overview Goal: Plan of Care Review Outcome: Ongoing (Interventions Implemented as Appropriate) 07/29/18 1622 Coping/Psychosocial Plan Of Care Reviewed With patient;spouse Plan of Care Review Progress no change OUTCOME EVALUATION NOTE: OUTCOME SUMMARY: A+O x4. Denies CP, denies SOB. Afib varying from 80's to 120's, higher with activity. Positive for orthostatics. Begin Tikosyn @ 2100. Good mentation and good urine output. Denies pain from head. Neuro check at initial assessment showno s/sx of neuro imbalance. Assessments throughout shift do not reveal any further neuro deficits PLAN MOVING FORWARD: Tikosyn load. Dose #1 at 2100. INDIVIDUALIZED FALL PREVENTION INTERVENTIONS: Patient-specific fall risk factors per assessment: [current deficits]: Prior fall, craniotomy, ECg wires, IV sites, Assistance [level of assistance required for transfers and ambulation]: SBA Supervision [direct monitoring required during toileting and ADLs]: Independent Surveillance [continuous indirect monitoring]: Family @ bedside, freq rounding, telemetry, call hinkle in reach Patient-specific fall prevention interventions for sensory deficits provided, if applicable: [X] Yes CPG GOAL OUTCOME EVALUATION: * Plan of Care - Diane Duran RN - 07/29/2018 4:30 AM EDT Problem: Patient Care Overview Goal: Plan of Care Review OUTCOME EVALUATION NOTE: OUTCOME SUMMARY: Rested well after an eventful day. No complaints of pain or discomfort. Call light in reach. Urinalat bedside PLAN MOVING FORWARD: NENO today with possible start of antiarrhythmic. INDIVIDUALIZED FALL PREVENTION INTERVENTIONS: Patient-specific fall risk factors per assessment: [current deficits]: Tubings, wires Assistance [level of assistance required for transfers and ambulation]: sba Supervision [direct monitoring required during toileting and ADLs]: sba Surveillance [continuous indirect monitoring]: Hourly rounding, telemetry Patient-specific fall prevention interventions for sensory deficits provided, if applicable: [X] N/A CPG GOAL OUTCOME EVALUATION: * Initial Assessments - Corazon Allen RN - 07/28/2018 10:15 AM EDT Office of Care Management Initial Assessment Corazon Allen RN reviewed record and discussed patient with Care Team. Source of Information: Patient, Chart Introduced self/reviewed role; services accepted. Reason for Hospitalization: Reason for Admission as Stated by Patient: chest pressure Past Medical History: Diagnosis Date ??? A-fib ??? Brain abscess ??? CAD (coronary artery disease) ??? HLD (hyperlipidemia) ??? HTN (hypertension) Hospitalizations Within the Past 30 Days: No Anticipated Length Of Stay (If known): 3-5 days Current Decision-Making Capacity: alert and oriented Advance Care Planning: Yes on file Current Coping/Education/Information Needs: No issues Current Functional Ability: Independent Functional Status Prior to Admission: Independent with all ADL's and ambulation Home Environment: Lives in 2 story home with his . [address]OH[address]. Has rails. His daughter lives across the street Social & Family Supports/Community Resources: Supportive family Behavioral Health History: denied Substance Use/Abuse: Denied Other Pertinent/Service Specific Information: None 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: MEDICARE Secondary Insurance: [employer] [place] Prescription Coverage: yes Preferred Pharmacy: See demographics Other: n/a Primary Care Provider: Agata Barrera DO [phone] Patient/Caregiver Goals of Treatment: To figure out why I pass out Potential Needs for Transition of Care: Rehab/SNF: n/a Home Health: not homebound DME: none needed Dialysis: n/a Community Resources: n/a Transportation: Other: n/a Anticipated Barriers to Discharge/Special Considerations: None identified Assessment: Pt 72 year old pleasant male, alert and oriented. Sitting in bed on laptop computer. Ptwith PMH of CAD, HTN, HLD, persistent a-fib (diagnosed 6 weeks ago, s/p DCCV 3 weeks ago, on xarelto), and brain abscess (s/p surgery and abx treatment in 2015) who presented to [facility] with dyspnea, lightheadedness and chest pressure. ??Plan is for NENO tomorrow. Pt is independent with no home care needs identified. Plan: DC home/ Self care A member of the Care Management team will continue to monitor progress, follow for continuity of care and assist with transition of care planning. Corazon Allen RN Pager: [phone] * Consult Note - Danuta Kerr RN - 07/28/2018 9:47 AM EDT [facility] EARLY RESPONSE TEAM NOTE Name: Agata Flores Age: 72 y.o. Sex; Male Date of : 1945 Responding Members: Patt Kerr RN, Carmen Goetz RCP, Karen Martin RCP, Cindy LAY Date/Time of Admission: 07/26/2018 11:01 AM Unit/Room: [facility] Service: Cardiology Time Activated: 08 Time Arrived: 0834 Time at bedside: 60 minutes Indication for Consult: LOC ASSESSMENT/INTERVENTION Brief 24 hr history: Cary gamboa received at 0831. On arrival to room, Mr. Flores found supine onbathroom floor, wedged against wall. He was awake, in care of several 4E RN's and STOCK REPLENISHER. No compressions had been administered. He had regular respirations, palp radial, appropriate verbal responses. Skin cool, pale quality, wet (from shower vs diaphoresis). Unprotected fall from toilet confirmed by patient and STOCK REPLENISHER; CTLS precautions initiated. Per patient report, he had become dizzy at end of hisshower, had seated self on toilet and pulled cord in bathroom for assist. STOCK REPLENISHER responded, left to obtain additional assist and on return found Mr. Flores on bathroom floor. Concern for initial status pr ompted Code Blue activation. Per report, likely full LOC as patient stated I sat on the toilet andthe next I knew I was on the floor. LOC described as brief, self resolving. manager monitoring had been disconnected for Mr. Flores to shower, so no tele data was captured. Mr. Flores was LIRA, he denied sensation changes. Speech clear, + eye contact. Plan made for move back to bed. C-collar applied; TLS palpated without findings. Lifted back to bed with use of megamover lift pad and numerous staff assist; C- spine held. TLS and CSMT again checked on return to bed; no findings pertaining to TLS. However, he reported posterior neck soreness. Mr. Flores described history of posterior neck muscle pain which he has not had in a while, now returned. Team aware with plan toconsult for assist with C-spine evaluation. PERRL 2mm. RR 16, HR 82 afib, BP 134/98, SpO2 94 RA. Bruises to left forehead, left eyebrow, left upper lip and b/l knees. Dr. Mahmood and Steven Hooks APRN arrived bedside; EKG and stat head CT ordered. VSS. Laboratory: Lab Results Component Value Date WBC 15.0 (H) 07/28/2018 Hemoglobin 16.3 07/28/2018 Hematocrit 46.4 07/28/2018 Platelets 203 07/28/2018 Potassium 4.4 07/28/2018 Calcium 9.7 07/28/2018 CO2 26 07/28/2018 BUN 19 07/28/2018 Creatinine 0.83 07/28/2018 PLAN Pertinent report given to 4E Resource RNElena, at 0930. Head CT and c-spine evaluation pending. (C-collar remained on). Mr. Flores remains on 4E at present. LSRN will continue to follow today. 9:47 AM, July 28, 2018 DANUTA KERR RN, * Consult Note - Miguel De Los Santos PA - 07/27/2018 2:04 PM EDT Inpatient Cardiac Electrophysiology Consult Note Date of Consultation: 07/27/2018 Admit Date: 07/26/2018 Place of Service: Inpatient Unit Responsible Attending: Alvaro Maki MD Reason for Consult: We are seeing Agata Flores at the request of Dr. Mahmood for the evaluation of persistent atrial fibrillation. I have reviewed the available records, interviewed and examined the patient. Active Problem List: Active Hospital Problems Diagnosis ??? ASCVD (arteriosclerotic cardiovascular disease) ??? Atrial fibrillation ??? Hypertension ??? HLD (hyperlipidemia) ??? Chest pain Resolved Hospital Problems Diagnosis Date Resolved No resolved problems to display. History of Present Illness: Agata Flores is a 72 y.o. male with symptomatic afib(recently diagnosed about six weeks ago) but recurrent after cardioversion three weeks ago. He felt better for about a week following cardioversion, on metoprolol and xarelto, but then developed progressive dyspnea and lightheadedness on exertion as well as intermittent chest pain. He has a hx significant for CAD (PCI in 2006, BRENDA distal LAD x2, distal LCx x2, ramus x1 at [facility]), HTN and HLD. His cardiac enzymes remained negative and his EKGs were not suggestive of ischemia. [place] [facility] [place] which revealed non-obstructive CAD. Echocardiogram shows LVEF of 61% with no WMAs. ?? Additional hx includes brain abscess (s/p surgery and abx treatment in 2014). ?? Review of Systems Constitutional: Positive for fatigue. Negative for chills, diaphoresis and fever. Respiratory: Positive for shortness of breath. Negative for cough and chest tightness. Cardiovascular: Negative for chest pain. Gastrointestinal: Negative for diarrhea, nausea and vomiting. Genitourinary: Negative for dysuria, frequency and hematuria. Neurological: Positive for light-headedness. Negative for syncope. PMH: Past Medical History: Diagnosis Date ??? A-fib ??? Brain abscess ??? CAD (coronary artery disease) ??? HLD (hyperlipidemia) ??? HTN (hypertension) Pertinent Medications: Current Facility-Administered Medications Ordered in [facility] Medication Dose Route Frequency Provider Last Rate Last Dose ??? sodium chloride 0.9% infusion 100 mL/hr Intravenous Continuous Darion Machado MD 100 mL/hr at 07/27/18 1142 100 mL/hr at 07/27/18 1142 ??? rivaroxaban (XARELTO) tablet 20 mg 20 mg Oral Daily with dinner Kathya Deonna T, SUPERVISOR [employer]FINING ??? metoprolol tartrate (LOPRESSOR) tablet 25 mg 25 mg Oral Q6H POPPY Akthya, Deonna T, SUPERVISOR [employer]FINING 25 mg at 07/27/18 0612 ??? aspirin EC tablet 81 mg 81 mg Oral Daily Kathya, Deonna T, SUPERVISOR [employer]FINING 81 mg at 07/27/18 0811 ??? nitroGLYcerin (NITROSTAT) SL tablet 0.4 mg 0.4 mg Sublingual Q5 Min PRN Kathya, Deonna T, SUPERVISOR [employer]FINING ??? acetaminophen (TYLENOL) tablet 650 mg 650 mg Oral Q4H PRN Ktahya, Deonna T, SUPERVISOR [employer]FINING ??? brimonidine (ALPHAGAN) 0.2 % ophthalmic solution 1 drop 1 drop Both Eyes BID Kathya, Deonna T,SUPERVISOR [employer] REFINING 1 drop at 07/27/18 0811 And ??? timolol (TIMOPTIC) 0.5 % ophthalmic solution 1 drop 1 drop Both Eyes BID Kathya, Deonna T, SUPERVISOR [employer]FINING 1 drop at 07/27/18 0811 ??? rosuvastatin (CRESTOR) tablet 10 mg 10 mg Oral QPM Kathya, Deonna T, SUPERVISOR [employer]FINING 10 mg at 07/26/18 1636 No current [facility]-ordered outpatient prescriptions on file. Family History: Family History Problem Relation Age of Onset ??? Alzheimer Disease Brother Social History: Social History Social History ??? Marital status: Spouse name: N/A ??? Number of children: N/A ??? Years of education: N/A Occupational History ??? Not on file. Social History Main Topics ??? Smoking status: Never Smoker ??? Smokeless tobacco: Never Used ??? Alcohol use Not on file Comment: 2-3 drinks/night ??? Drug use: No ??? Sexual activity: Not on file Other Topics Concern ??? 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 Physical Exam: Vital signs: Last value Range last 12 hrs Temperature Temp: 36.6 ??C (97.9 ??F) Temp: [36.6 ??C (97.9 ??F)] Heart Rate Heart Rate: 72 Heart Rate: [70-95] Blood Pressure BP: 126/76 BP: (112-143)/(63-104) Respiratory Rate Resp: 18 Resp: [14-30] SpO2 SpO2: 98 % SpO2: [96 %-99 %] Physical Exam Constitutional: He is oriented to person, place, and time. No distress. Neck: No JVD present. Cardiovascular: Normal heart sounds and intact distal pulses. An irregularly irregular rhythm present. No murmur heard. Pulmonary/Chest: Effort normal and breath sounds normal. Musculoskeletal: Normal range of motion. He exhibits no edema. Neurological: He is alert and oriented to person, place, and time. Skin: Skin is warm and dry. He is not diaphoretic. Nursing note and vitals reviewed. Labs: Lab Results Component Value Date WBC 14.7 (H) 07/27/2018 HGB 15.7 07/27/2018 HCT 44.4 07/27/2018 PLATELET 207 07/27/2018 Recent Labs 07/26/18 1144 INR 1.2 Lab Results Component Value Date NA 138 07/27/2018 K 4.4 07/27/2018 CL 103 07/27/2018 BUN 19 07/27/2018 CREATININE 0.89 07/27/2018 MAGNESIUM 0.86 07/27/2018 Pertinent Radiographic/Diagnostic Results: Cardiac Catheterization: 07/27/2018 * Nonobstructive coronary artery disease * Decreased cardiac output Echocardiogram: 07/27/2018 1. Mild concentric left ventricular hypertrophy is [...] from 01/31/2015, there is no significant change. 12 lead EK07/27/2018 Atrial fibrillation @ 75; GA 166; QRs 76; QTc 426ms Assessment: Agata Flores is a 72 y.o. male with PAF, first diagnosed May 2018, with fatigue and LESTER. He was started on metoprolol and xarelto and underwent DC cardioversion however he only remained in sinus rhythm for about a week then had recurrent afib with symptoms. He has a hx of CAD s/p multivessel PCI though with preserved LVEF of 61%. Cardiac cath this admission shows non-obstructive CAD with essentially unchanged echo(moderately dilated LA). His electrolytes are normal, QTc is acceptable at 426ms and renal function is good -Cockroff-Gault creatinine clearance: 103 (actual body wgt based). Dr. Maki discussed possible treatment options including ablation vs rhythm vs rate control. He initially thought he might prefer ablation, however he now prefers at least an interim strategy of pharmacologic rhythm control. Recommendation: NENO due to discontinuation of DOAC while in afib prior to cath If NENO shows atria clear of thrombus, will start dofetilide 500mcg BID; admin 4- 5 doses prior to DCcardioversion Resume xarelto anticoagulation Consult service will continue to follow patient. Provider: GAGE Aldridge Provider#: [id number] Consult attending physician: Alvaro Maki MD EP Consult positional pager #[phone](EPMI) EP Device interrogation positional pager # [phone] Associated attestation - Fred Maki MD - 07/27/2018 8:08 PM EDT Cardiac Electrophysiology Attending Addendum: The patient was seen, interviewed and examined by me. Pertinent data and results reviewed. Miguel ALMONTE's note above was reviewed by me and agreed with. Specifically, the pertinent diagnoses andrecommendations were discussed with me. Fred Maki MD, PhD, [facility] Cardiac Electrophysiology * Plan of Care - Deonna Rasheed APRN - 07/26/2018 12:58 PM EDT Images from the original note were not included. Cardiac Cath Pre Procedure Note The indications, expected benefits and potential risks of heart catheterization were reviewed in detail with the patient. The potential for , heart attack, stroke, kidney failure, hemorrhage, allergic reaction, vascular complications and infection were reviewed in detail. The possibility of stenting and other percutaneous intervention with associated risk was reviewed. The possible need for emergent coronary artery bypass surgery was reviewed. After a discussion about the above, and havinganswered all questions posed, the patient was provided with a consent which was reviewed and signed. ASA: 3: Patient with severe systemic disease Mallampati: II: tonsillar pillars are blocked by the tongue Sedation Plan: moderate (conscious sedation) Assessment and Plan: Proceed with cardiac cath today, see progress note from today for further details. Deonna Rasheed APRN 07/26/2018 Pager [phone] documented in this encounter Plan of Treatment Upcoming Encounters Date Type Department Care Team (Late st Contact Info) Description 09/08/2024 9:40 AM EDT Office Visit Cardiology at [address] [place] [phone] Gonzales Torres MD [facility] [place] [address] Pending Results Name Type Priority Associated Diagnoses Date/Time EKG 12 Lead ECG Routine Chest pain, unspecified type 07/30/2018 7:34 AM EDT Cardioversion in Cath/EP Lab Electrophysiology Routine 07/30/2018 12: 01 PM EDT Scheduled Orders Name Type Priority Associated Diagnoses Order Schedule Cardioversion in Cath/EP Lab Electrophysiology Routine One Time for 1 Occurrences starting 07/30/2018 until 07/30/2018 documented as of this encounter Procedures Procedure Name Priority Date/Time Associated Diagnosis Comments EKG 12-LEAD STAT 08/01/2018 11:02 AM EDT Persistent atrial fibrillation BMP W/FASTING GLUCOSE Routine 08/01/2018 3:35 AM EDT HEMOGRAM Routine 08/01/2018 3:35 AM EDT DIFFERENTIAL, AUTOMATED Routine 08/01/20 18 3:35 AM EDT CBC (WITH DIFF) Routine 08/01/2018 3:35 AM EDT EKG 12-LEAD Routine 08/01/2018 12:00 AM EDT Persistent atrial fibrillation EKG 12-LEAD Routine 07/31/2018 2:14 PM EDT Persistent atrial fibrillation EKG 12-LEAD STAT 07/31/2018 8:32 AM EDT Persistent atrial fibrillation EKG 12-LEAD Routine 07/31/2018 7:44 AM EDT Persistent atrial fibrillation BMP W/FASTING GLUCOSE Routine 07/31/2018 6:33 AM EDT HEMOGRAM Routine 07/31/2018 6:33 AM EDT DIFFERENTIAL, AUTOMATED Routine 07/31/20 18 6:33 AM EDT CBC (WITH DIFF) Routine 07/31/2018 6:33 AM EDT EKG 12-LEAD Routine 07/31/2018 12:17 AM EDT Persistent atrial fibrillation EKG 12-LEAD STAT 07/30/2018 12:36 PM EDT Persistent atrial fibrillation CARDIOVERSION-OR Routine 07/30/2018 12:1 2 PM EDT EKG 12-LEAD Routine 07/30/2018 10:04 AM EDT Persistent atrial fibrillation EKG 12-LEAD Routine 07/30/2018 7:34 AM EDT Persistent atrial fibrillation EKG 12-LEAD Routine 07/30/2018 7:34 AM EDT Chest pain, unspecified type BMP W/FASTING GLUCOSE Routine 07/30/2018 4:06 AM EDT HEMOGRAM Routine 07/30/2018 4:06 AM EDT DIFFERENTIAL, AUTOMATED Routine 07/30/20 18 4:06 AM EDT CBC (WITH DIFF) Routine 07/30/2018 4:06 AM EDT MAGNESIUM Routine 07/30/2018 4:06 AM EDT EKG 12-LEAD STAT 07/29/2018 11:04 PM EDT Chest pain, unspecified type NENO W LMTD SPECTRAL DOPPLER COLOR DOPPLER Routine 07/29/2018 3:33 PM EDT Persistent atrial fibrillation URINE HOLD Routine 07/29/2018 1:38 PM EDT URINALYSIS WITH REFLEX CULTURE Routine 07/29/2018 1:38 PM EDT EKG 12-LEAD Routine 07/29/2018 7:21 AM EDT Chest pain, unspecified type BMP W/FASTING GLUCOSE Routine 07/29/2018 5:17 AM EDT HEMOGRAM Routine 07/29/2018 5:17 AM EDT DIFFERENTIAL, AUTOMATED Routine 07/29/20 18 5:17 AM EDT CBC (WITH DIFF) Routine 07/29/2018 5:17 AM EDT MAGNESIUM Routine 07/29/2018 5:[address] CERVICAL SPINE WO CONTRAST STAT 07/28/2018 1:[address] HEAD WO CONTRAST (GENERIC) STAT 07/28/2018 10:11 AM EDT POCT GLUCOSE Routine 07/28/2018 9:12 AM EDT EKG 12-LEAD STAT 07/28/2018 8:44 AM EDT Chest pain, unspecified type EKG 12-LEAD Routine 07/28/2018 7:19 AM EDT Chest pain, unspecified type BMP W/FASTING GLUCOSE Routine 07/28/2018 3:54 AM EDT HEMOGRAM Routine 07/28/2018 3:54 AM EDT DIFFERENTIAL, AUTOMATED Routine 07/28/20 18 3:54 AM EDT CBC (WITH DIFF) Routine 07/28/2018 3:54 AM EDT MAGNESIUM Routine 07/28/2018 3:54 AM EDT CARDIAC CATHETERIZATION Routine 07/27/20 18 11:30 AM EDT ECHO COMPLETE Routine 07/27/2018 9:12 AM EDT Chest pain, unspecified type EKG 12-LEAD Routine 07/27/2018 7:24 AM EDT Chest pain, unspecified type BMP W/FASTING GLUCOSE Routine 07/27/2018 3:46 AM EDT HEMOGRAM Routine 07/27/2018 3:46 AM EDT DIFFERENTIAL, AUTOMATED Routine 07/27/20 18 3:46 AM EDT CBC (WITH DIFF) Routine 07/27/2018 3:46 AM EDT MAGNESIUM Routine 07/27/2018 3:46 AM EDT CARDIAC ENZYMES ([facility]) STAT 07/26/2018 10:30 PM EDT CARDIAC ENZYMES ([facility]) STAT 07/26/2018 4:31 PM EDT SCAN, PERIPHERAL BLOOD STAT 8 11:44 AM EDT HEMOGRAM STAT 07/26/2018 11:44 AM EDT DIFFERENTIAL, AUTOMATED STAT 07/26/20 18 11:44 AM EDT CARDIAC ENZYMES ([facility]) STAT 07/26/2018 11:44 AM EDT APTT STAT 07/26/2018 11:44 AM EDT PROTHROMBIN TIME STAT 07/26/2018 11:4 4 AM EDT CBC (WITH DIFF) STAT 07/26/2018 11:44 AM EDT TSH STAT 07/26/2018 11:44 AM EDT PRO-BRAIN NATRIURETIC PEPTIDE STAT 07/26/2018 11:44 AM EDT HEMOGLOBIN A1C STAT 07/26/2018 11:44 AM EDT BASIC METABOLIC PANEL STAT 07/26/2018 11:44 AM EDT EKG 12-LEAD STAT 07/26/2018 11:14 AM EDT Chest pain, unspecified type CYLINDER LOADER SCAN 07/26/2018 12:00 AM EDT documented in this encounter Results * EKG 12 Lead (08/01/2018 11:02 AM EDT) Pathologist [facility] Ventricular rate 52 BPM MUSE SYSTEM Atrial Rate 53 BPM MUSE SYSTEM QRS Duration 76 ms MUSE SYSTEM Q-T Interval 482 ms MUSE SYSTEM QTC Calculated (Bezet) 448 ms MUSE SYSTEM Calculated P [place] 62 degrees MUSE SYSTEM Calculated R [place] 24 degrees MUSE SYSTEM Calculated T [place] 121 degrees MUSE SYSTEM INTERPRETATION Sinus bradycardia Low voltage QRS Abnormal QRS-T angle, consider primary T wave abnormality Abnormal ECG When compared with ECG of 01-AUG-2018 00:00, (unconfirmed) Nonspecific T wave abnormality, improved in Anterior leads QT has shortened Confirmed by MD GALAN JOHN ([id number]) on 08/01/2018 1:20:59 PM MUSE SYSTEM 08/01/2018 11:0 2 AM EDT 08/01/2018 1:20 PM EDT Ant Suarez MD ECG ORDERABLES MUSE SYSTEM * (ABNORMAL) Differential, Automated (08/01/2018 3:35 AM EDT) Pathologist [facility] Neutrophil % 38.8 % [facility] Neutrophil Absolute 5.48 1.70 - 6.10 x10(3)/mc L [facility] Lymph % 15.9 % [facility] Lymphocytes Abs 2.2 0.9 - 3.2 x10(3)/mc L [facility] Monocyte % 7.1 % [facility] Monocyte Abs 1.0(H) 0.3 - 0.9 x10(3)/[facility] Eos % 37.5 % [facility] Eosinophils Abs 5.3(H) 0.0 - 0.4 x10(3)/[facility] Basophil % 0.5 % [facility] Baso Absolute 0.1 0.0 - 0.1 x10(3)/[facility] Immature Gran % 0.20 % [facility] Comment: Immature granulocytes(IG's)percentage and absolute count will include metamyelocytes, myelocytes, and promyelocytes. Blood smears from CBCs yielding IG's will be scanned manually for concordance. If this scan disagrees with the automated IG or if promyelocytes are noted, a manual differential will be performed. Immature Gran Absolute 0.03 0.00 - 0.04 x10(3)/[facility] Blood specimen (specimen) 08/01/2018 3:35 AM EDT 08/01/2018 3:56 AM EDT Narrative Resulting Agency Comment Spec In Lab Elena Hooks APRN HEMATOLOGY ORDERABLE S Performing Organization Address City/State/[facility] Co de Phone Number [facility] [place] [address] * (ABNORMAL) Hemogram (08/01/2018 3:35 AM EDT) White Blood Cell 14.1(H) 4.0 - 9.5 x10(3)/[facility] Red Blood Cell 4.27(L) 4.58 - 5.54 x10(6)/[facility] Hemoglobin 13.9 13.7 - 16.5 gm/dL [facility] Hematocrit 38.9(L) 40.5 - 48.5 % [facility] Mean Cell Volume 91.1 82.9 - 93.1 fL [facility] Mean Cell Hemoglobin 32.6(H) 27.5 - 32.1 pg [facility] Mean Cell Hemoglobin Concentration 35.7 32.0 - 35.7 gm/dL [facility] Platelet 198 145 - 357 x10(3)/mc L [facility] RDW Standard Deviation 41.2 36.0 - 45.0 fL [facility] RDW coefficient of variation 12.6 11.4 - 13.8 % [facility] Mean Platelet Volume 11.3 7.6 - 12.9 [facility] NRBC% auto 0.0 % [facility] NRBC Absolute 0.000 0.000 - 0.000 x10(3)/mc L [facility] Blood specimen (specimen) 08/01/2018 3:35 AM EDT 08/01/2018 3:56 AM EDT Narrative Resulting Agency Comment Spec In Lab Elena Hooks APRN HEMATOLOGY ORDERABLE S [facility] [place] [address] * (ABNORMAL) BMP w/fasting Glucose (08/01/2018 3:35 AM EDT) Glucose Fasting 110(H) 65 - 99 mg/dL [facility] Comment: ?Fasting* Glucose Interpretive Criteria [...] of Diabetes Mellitus, Position Statement from the [employer]. ??Diabetes Care, Volume 33, Supplement 1, Dec 2009 Blood Urea Nitrogen 22(H) 10 - 20 mg/dL [facility] Creatinine 0.79(L) 0.80 - 1.50 mg/dL [facility] Sodium 137 135 - 145 mmol/L [facility] Potassium 4.4 3.5 - 5.0 mmol/L [facility] Comment: Please note: ??Patients with WBC >100,000 may have falsely elevated Potassium levels. ??For accurate Potassium quantification in these patients send serum separator tube (gold top) for subsequent determinations. ??Contact the Clinical Chemistry Laboratory if there are any questions. Chloride 102 98 - 107 mmol/L [facility] Carbon Dioxide 25 22 - 31 mmol/L [facility] Anion Gap 10 5 - 15 mmol/L [facility] Calcium 9.4 8.5 - 10.5 mg/dL [facility] Est Glomerular Filtration Rate 90 >=60 mL/min/1. 73 m?? [facility] Comment: The eGFR was calculated using the CKD-EPI equation. As with all creatinine based estimates of kidney function, eGFR values calculated with the CKD-EPI equation are not accurate in patients with acute kidney failure, extremes of body mass or the acutely ill. [email or web address] ICT/DHMCnkf eGFR 104 >=60 mL/min/1. 73 m?? [facility] Comment: The eGFR was calculated using the CKD-EPI equation. As with all creatinine based estimates of kidney function, eGFR values calculated with the CKD-EPI equation are not accurate in patients with acute kidney failure, extremes of body mass or the acutely ill. [email or web address] Blood specimen (specimen) 08/01/2018 3:35 AM EDT 08/01/2018 3:56 AM EDT Narrative Resulting Agency Comment Spec In Lab Elena Hooks APRN CHEMISTRY ORDERABLES [facility] [place] [id number] * EKG 12 Lead (08/01/2018 12:00 AM EDT) Ventricular rate 58 BPM MUSE SYSTEM Atrial Rate 58 BPM MUSE SYSTEM P-R Interval 158 ms MUSE SYSTEM QRS Duration 82 ms MUSE SYSTEM Q-T Interval 530 ms MUSE SYSTEM QTC Calculated (Bezet) 520 ms MUSE SYSTEM Calculated P Lowell 74 degrees MUSE SYSTEM Calculated R Lowell 45 degrees MUSE SYSTEM Calculated T Lowell 97 degrees MUSE SYSTEM INTERPRETATION Sinus bradycardia with marked sinus arrhythmia Low voltage QRS Nonspecific T wave abnormality Prolonged QT Abnormal ECG When compared with ECG of 31-JUL-2018 14:14, (unconfirmed) Premature atrial complexes are no longer Present Nonspecific T wave abnormality has replaced inverted T waves in Lateral leads QT has lengthened Confirmed by MD Erick, Ant ([id number]) on 08/01/2018 1:32:14 PM MUSE SYSTEM 08/01/2018 12:0 0 AM EDT 08/01/2018 1:32 PM EDT Elena Hooks APRN ECG ORDERABLES Performing Organization Address [facility] de Phone Number MUSE SYSTEM * EKG 12 Lead (07/31/2018 2:14 PM EDT) Ventricular rate 56 BPM MUSE SYSTEM Atrial Rate 56 BPM MUSE SYSTEM P-R Interval 162 ms MUSE SYSTEM QRS Duration 76 ms MUSE SYSTEM Q-T Interval 482 ms MUSE SYSTEM QTC Calculated (Bezet) 465 ms MUSE SYSTEM Calculated P Lowell 70 degrees MUSE SYSTEM Calculated R Lowell 17 degrees MUSE SYSTEM Calculated T Lowell 134 degrees MUSE SYSTEM INTERPRETATION Sinus bradycardia with Premature atrial complexes Low voltage QRS T wave abnormality, consider lateral ischemia Prolonged QT Abnormal ECG When compared with ECG of 31-JUL-2018 08:32, (unconfirmed) Premature atrial complexes are now Present Nonspecific T wave abnormality, improved in Inferior leads Confirmed by MD Suarez Eric ([id number]) on 08/01/2018 1:31:56 PM MUSE SYSTEM 07/31/2018 2:14 PM EDT 08/01/2018 1:31 PM EDT Elena Hooks APRN ECG ORDERABLES Performing Organization Address [facility] Co de Phone Number MUSE SYSTEM * EKG 12 Lead (07/31/2018 8:32 AM EDT) Ventricular rate 54 BPM MUSE SYSTEM Atrial Rate 54 BPM MUSE SYSTEM P-R Interval 160 ms MUSE SYSTEM QRS Duration 78 ms MUSE SYSTEM Q-T Interval 498 ms MUSE SYSTEM QTC Calculated (Bezet) 472 ms MUSE SYSTEM Calculated P Lowell 67 degrees MUSE SYSTEM Calculated R Lowell 12 degrees MUSE SYSTEM Calculated T Lowell 128 degrees MUSE SYSTEM INTERPRETATION Sinus bradycardia with marked sinus arrhythmia Low voltage QRS Nonspecific T wave abnormality Prolonged QT Abnormal ECG When compared with ECG of 31-JUL-2018 07:44, No significant change was found Confirmed by Denys Miller MD ([id number]) on 07/31/2018 5:01:20 PM MUSE SYSTEM 07/31/2018 8:32 AM EDT 07/31/2018 5:01 PM EDT Ant Suarez MD ECG ORDERABLES Performing Organization Address [facility] Phone Number MUSE SYSTEM * EKG 12 Lead (07/31/2018 7:44 AM EDT) Ventricular rate 56 BPM MUSE SYSTEM Atrial Rate 56 BPM MUSE SYSTEM P-R Interval 164 ms MUSE SYSTEM QRS Duration 84 ms MUSE SYSTEM Q-T Interval 494 ms MUSE SYSTEM QTC Calculated (Bezet) 476 ms MUSE SYSTEM Calculated P Lowell 71 degrees MUSE SYSTEM Calculated R Lowell 15 degrees MUSE SYSTEM Calculated T Lowell 127 degrees MUSE SYSTEM INTERPRETATION Sinus bradycardia Possible Left atrial enlargement Nonspecific T wave abnormality Prolonged QT Abnormal ECG When compared with ECG of 31-JUL-2018 00:17, Premature ventricular complexes are no longer Present Nonspecific T wave abnormality now evident in Inferior leads Confirmed by Denys Miller MD ([id number]) on 07/31/2018 3:59:38 PM MUSE SYSTEM 07/31/2018 7:44 AM EDT 07/31/2018 3:59 PM EDT Elena Hooks APRN ECG ORDERABLES Performing Organization Address [facility] Co de Phone Number MUSE SYSTEM * (ABNORMAL) Differential, Automated (07/31/2018 6:33 AM EDT) Neutrophil % 39.3 % [facility] Neutrophil Absolute 5.61 1.70 - 6.10 x10(3)/[facility] Lymph % 13.7 % [facility] Lymphocytes Abs 2.0 0.9 - 3.2 x10(3)/[facility] Monocyte % 7.4 % [facility] Monocyte Abs 1.0(H) 0.3 - 0.9 x10(3)/[facility] Eos % 38.8 % [facility] Eosinophils Abs 5.5(H) 0.0 - 0.4 x10(3)/[facility] Basophil % 0.6 % [facility] Baso Absolute 0.1 0.0 - 0.1 x10(3)/[facility] Immature Gran % 0.20 % [facility] Comment: Immature granulocytes(IG's)percentage and absolute count will include metamyelocytes, myelocytes, and promyelocytes. Blood smears from CBCs yielding IG's will be scanned manually for concordance. If this scan disagrees with the automated IG or if promyelocytes are noted, a manual differential will be performed. Immature Gran Absolute 0.03 0.00 - 0.04 x10(3)/[facility] Blood specimen (specimen) 07/31/2018 6:33 AM EDT 07/31/2018 6:52 AM EDT Narrative Resulting Agency Comment Spec In Lab Elena Hooks APRN HEMATOLOGY ORDERABLE S [facility] [place] [address] * (ABNORMAL) Hemogram (07/31/2018 6:33 AM EDT) White Blood Cell 14.3(H) 4.0 - 9.5 x10(3)/[facility] Red Blood Cell 4.92 4.58 - 5.54 x10(6)/[facility] Hemoglobin 15.8 13.7 - 16.5 gm/dL [facility] Hematocrit 45.2 40.5 - 48.5 % [facility] Mean Cell Volume 91.9 82.9 - 93.1 [facility] Mean Cell Hemoglobin 32.1 27.5 - 32.1 pg [facility] Mean Cell Hemoglobin Concentration 35.0 32.0 - 35.7 gm/dL [facility] Platelet 183 145 - 357 x10(3)/mc L [facility] RDW Standard Deviation 42.5 36.0 - 45.0 [facility] RDW coefficient of variation 12.6 11.4 - 13.8 % [facility] Mean Platelet Volume 11.0 7.6 - 12.9 [facility] NRBC% auto 0.0 % [facility] NRBC Absolute 0.000 0.000 - 0.000 x10(3)/mc L [facility] Blood specimen (specimen) 07/31/2018 6:33 AM EDT 07/31/2018 6:52 AM EDT Narrative Resulting Agency Comment Spec In Lab Elena Hooks APRN HEMATOLOGY ORDERABLE S [facility] [place] [address] * (ABNORMAL) BMP w/fasting Glucose (07/31/2018 6:33 AM EDT) Glucose Fasting 107(H) 65 - 99 mg/dL [facility] Comment: ?Fasting* Glucose Interpretive Criteria [...] of Diabetes Mellitus, Position Statement from the [employer]. ??Diabetes Care, Volume 33, Supplement 1, Dec 2009 Blood Urea Nitrogen 22(H) 10 - 20 mg/dL [facility] Creatinine 0.75(L) 0.80 - 1.50 mg/dL [facility] Sodium 140 135 - 145 mmol/L [facility] Potassium 4.3 3.5 - 5.0 mmol/L [facility] Comment: Please note: ??Patients with WBC >100,000 may have falsely elevated Potassium levels. ??For accurate Potassium quantification in these patients send serum separator tube (gold top) for subsequent determinations. ??Contact the Clinical Chemistry Laboratory if there are any questions. Chloride 100 98 - 107 mmol/L [facility] Carbon Dioxide 27 22 - 31 mmol/L [facility] Anion Gap 13 5 - 15 mmol/L [facility] Calcium 9.6 8.5 - 10.5 mg/dL [facility] Est Glomerular Filtration Rate 92 >=60 mL/min/1. 73 m?? [facility] Comment: The eGFR was calculated using the CKD-EPI equation. As with all creatinine based estimates of kidney function, eGFR values calculated with the CKD-EPI equation are not accurate in patients with acute kidney failure, extremes of body mass or the acutely ill. [email or web address] eGFR 106 >=60 mL/min/1. 73 m?? [facility] Comment: The eGFR was calculated using the CKD-EPI equation. As with all creatinine based estimates of kidney function, eGFR values calculated with the CKD-EPI equation are not accurate in patients with acute kidney failure, extremes of body mass or the acutely ill. [email or web address] Blood specimen (specimen) 07/31/2018 6:33 AM EDT 07/31/2018 6:52 AM EDT Narrative Resulting Agency Comment Spec In Lab Elena Hooks SUPERVISOR [employer]FINING CHEMISTRY ORDERABLES Performing Organization Address City/[facility]/ZIP Co de Phone Number [facility] [place] [address] * EKG 12 Lead (07/31/2018 12:17 AM EDT) Ventricular rate 68 BPM MUSE SYSTEM Atrial Rate 68 BPM MUSE SYSTEM P-R Interval 176 ms MUSE SYSTEM QRS Duration 74 ms MUSE SYSTEM Q-T Interval 490 ms MUSE SYSTEM QTC Calculated (Bezet) 521 ms MUSE SYSTEM Calculated P [place]ell 80 degrees MUSE SYSTEM Calculated R Lowell 22 degrees MUSE SYSTEM Calculated T [place]ell 73 degrees MUSE SYSTEM INTERPRETATION Sinus rhythm Occasional Premature ventricular complexes Low voltage QRS T wave abnormality, consider anterior ischemia Prolonged QT Abnormal ECG When compared with ECG of 30-JUL-2018 12:36, T wave inversion no longer evident in Lateral leads Confirmed by Denys Miller MD ([id number]) on 07/31/2018 3:59:20 PM MUSE SYSTEM 07/31/2018 12:1 7 AM EDT 07/31/2018 3:59 PM EDT Elena Hooks SUPERVISOR [employer]FINING ECG ORDERABLES Performing Organization Address City/[facility]/ZIP Co de Phone Number MUSE SYSTEM * EKG 12 Lead (07/30/2018 12:36 PM EDT) Ventricular rate 58 BPM MUSE SYSTEM Atrial Rate 58 BPM MUSE SYSTEM P-R Interval 170 ms MUSE SYSTEM QRS Duration 74 ms MUSE SYSTEM Q-T Interval 490 ms MUSE SYSTEM QTC Calculated (Bezet) 481 ms MUSE SYSTEM Calculated P Lowell 73 degrees MUSE SYSTEM Calculated R Lowell 20 degrees MUSE SYSTEM Calculated T Lowell 149 degrees MUSE SYSTEM INTERPRETATION Sinus bradycardia with sinus arrhythmia Occasional and consecutive Premature ventricular complexes Low voltage QRS T wave abnormality, consider anterolateral ischemia Prolonged QT Abnormal ECG When compared with ECG of 30-JUL-2018 10:04, (unconfirmed) Previous ECG has undetermined rhythm, needs review Nonspecific T wave abnormality, improved in Inferior leads T wave inversion now evident in Lateral leads Confirmed by MD Chamberlain Timothy ([id number]) on 07/30/2018 3:49:17 PM MUSE SYSTEM 07/30/2018 12:3 6 PM EDT 07/30/2018 3:49 PM EDT Fred Maki MD ECG ORDERABLES MUSE SYSTEM * CARDIOVERSION-OR (07/30/2018 12:12 PM EDT) Narrative Miguel De Los Santos PA - 07/30/2018 12:12 PM EDT Miguel De Los Santos PA ? 07/30/2018 12:12 PM Direct Current Cardioversion Procedure Note: Date of Procedure: 07/26/2018 Attending: Fred Maki MD PA: Miguel De Los Santos PA Indication: persistent atrial fibrillation Patient Active Problem List Diagnosis ? ? ASCVD (arteriosclerotic cardiovascular disease) ??PCI in 2005 at [facility]: stents to LAD x2, LCx x2, ramus ? ? Atrial fibrillation ??Diagnosed 2017, on rivaroxaban, s/p DCCV ? ? Hypertension ? ? HLD (hyperlipidemia) ? ? Chest pain ? ? Brain abscess The patient was brought to the procedure room in the fasting state with an intravenous line in place. After answering all of the patient's questions and assuring informed consent, and with the anesthesiology service assisting with sedation and airway management, the patient transiently was anesthetized. The electrode pads were placed in the following position: (X) Right anterior, left scapular ( ??) Left anterior, left scapular ( ??) Right upper parasternal and apical ( ??) Other: ? The patient received #1 synchronized discharge(s) at the maximal discharge of 150wsec joules. NSR restored successfully: (X) Yes ( ??) Yes, but with early relapse ( ??) No Complications: The patient subsequently awoke with no memory of the cardioversion, and there were no apparent complications. Provider Instructions: A follow up 12-lead ECG will be obtained. Fred Maki MD GENSURG ORDERS NO PO STOP PAIN QUESTION * EKG 12 Lead (07/30/2018 10:04 AM EDT) Ventricular rate 93 BPM MUSE SYSTEM Atrial Rate 93 BPM MUSE SYSTEM QRS Duration 74 ms MUSE SYSTEM Q-T Interval 420 ms MUSE SYSTEM QTC Calculated (Bezet) 522 ms MUSE SYSTEM Calculated R Lowell 21 degrees MUSE SYSTEM Calculated T Lowell -141 degrees MUSE SYSTEM INTERPRETATION Atrial flutter with variable A-V block Abnormal ECG When compared with ECG of 30-JUL-2018 07:34, No significant change was found Confirmed by MD PAT, KURTIS ([id number]) on 07/30/2018 4:46:36 PM MUSE SYSTEM 07/30/2018 10:0 4 AM EDT 07/30/2018 4:46 PM EDT Elena Hooks JOSE ECG ORDERABLES Performing Organization Address [facility] Co de Phone Number MUSE SYSTEM * EKG 12 Lead (07/30/2018 7:34 AM EDT) Ventricular rate 90 BPM MUSE SYSTEM Atrial Rate 90 BPM MUSE SYSTEM QRS Duration 74 ms MUSE SYSTEM Q-T Interval 392 ms MUSE SYSTEM QTC Calculated (Bezet) 479 ms MUSE SYSTEM Calculated R Lowell 22 degrees MUSE SYSTEM Calculated T [place]ell 107 degrees MUSE SYSTEM INTERPRETATION Atrial flutter with variable A-V block with premature ventricular or aberrantly conducted complexes Abnormal ECG When compared with ECG of 29-JUL-2018 23:04, (unconfirmed) Current undetermined rhythm precludes rhythm comparison, needs review No significant change was found Confirmed by MD Cintia, Fidel ([id number]) on 07/30/2018 3:49:11 PM MUSE SYSTEM 07/30/2018 7:34 AM EDT 07/30/2018 3:49 PM EDT Elena Hooks APRN ECG ORDERABLES Performing Organization Address [facility] de Phone Number MUSE SYSTEM * (ABNORMAL) Differential, Automated (07/30/2018 4:06 AM EDT) Neutrophil % 57.5 % [facility] Neutrophil Absolute 9.87(H) 1.70 - 6.10 x10(3)/mc L [facility] Lymph % 11.4 % [facility] Lymphocytes Abs 2.0 0.9 - 3.2 x10(3)/mc L [facility] Monocyte % 7.5 % [facility] Monocyte Abs 1.3(H) 0.3 - 0.9 x10(3)/[facility] Eos % 23.0 % [facility] Eosinophils Abs 4.0(H) 0.0 - 0.4 x10(3)/[facility] Basophil % 0.3 % [facility] Baso Absolute 0.0 0.0 - 0.1 x10(3)/[facility] Immature Gran % 0.30 % [facility] Comment: Immature granulocytes(IG's)percentage and absolute count will include metamyelocytes, myelocytes, and promyelocytes. Blood smears from CBCs yielding IG's will be scanned manually for concordance. If this scan disagrees with the automated IG or if promyelocytes are noted, a manual differential will be performed. Immature Gran Absolute 0.06(H) 0.00 - 0.04 x10(3)/[facility] Blood specimen (specimen) 07/30/2018 4:06 AM EDT 07/30/2018 4:38 AM EDT Narrative Resulting Agency Comment Spec In Lab Deonna Rasheed SUPERVISOR BENZENE REFINING HEMATOLOGY ORDERAB LES [facility] [place] [address] * (ABNORMAL) Hemogram (07/30/2018 4:06 AM EDT) White Blood Cell 17.2(H) 4.0 - 9.5 x10(3)/[facility] Red Blood Cell 4.75 4.58 - 5.54 x10(6)/[facility] Hemoglobin 15.0 13.7 - 16.5 gm/dL [facility] Hematocrit 43.5 40.5 - 48.5 % [facility] Mean Cell Volume 91.6 82.9 - 93.1 fL [facility] Mean Cell Hemoglobin 31.6 27.5 - 32.1 pg [facility] Mean Cell Hemoglobin Concentration 34.5 32.0 - 35.7 gm/dL [facility] Platelet 197 145 - 357 x10(3)/mc L [facility] RDW Standard Deviation 42.6 36.0 - 45.0 fL [facility] RDW coefficient of variation 12.8 11.4 - 13.8 % [facility] Mean Platelet Volume 10.9 7.6 - 12.9 fL [facility] NRBC% auto 0.0 % [facility] NRBC Absolute 0.000 0.000 - 0.000 x10(3)/mc L [facility] Blood specimen (specimen) 07/30/2018 4:06 AM EDT 07/30/2018 4:38 AM EDT Narrative Resulting Agency Comment Spec In Lab Deonna Rasheed SUPERVISOR BENZENE REFINING HEMATOLOGY ORDERAB LES Performing Organization Address [facility]/ZIP Co de Phone Number [facility] [place] [address] * Magnesium (07/30/2018 4:06 AM EDT) Magnesium 0.83 0.69 - 1.07 mmol/L [facility] Blood specimen (specimen) 07/30/2018 4:06 AM EDT 07/30/2018 4:38 AM EDT Narrative Resulting Agency Comment Spec In Lab Deonna Rasheed SUPERVISOR BENZENE REFINING CHEMISTRY ORDERABL ES Performing Organization Address [facility] Co de Phone Number [facility] [place] [address] * (ABNORMAL) BMP w/fasting Glucose (07/30/2018 4:06 AM EDT) Glucose Fasting 110(H) 65 - 99 mg/dL [facility] Comment: ?Fasting* Glucose Interpretive Criteria [...] of Diabetes Mellitus, Position Statement from the [employer]. ??Diabetes Care, Volume 33, Supplement 1, Dec 2009 Blood Urea Nitrogen 19 10 - 20 mg/dL [facility] Creatinine 0.81 0.80 - 1.50 mg/dL [facility] Sodium 138 135 - 145 mmol/L [facility] Potassium 4.1 3.5 - 5.0 mmol/L [facility] Comment: Please note: ??Patients with WBC >100,000 may have falsely elevated Potassium levels. ??For accurate Potassium quantification in these patients send serum separator tube (gold top) for subsequent determinations. ??Contact the Clinical Chemistry Laboratory if there are any questions. Chloride 101 98 - 107 mmol/L [facility] Carbon Dioxide 24 22 - 31 mmol/L [facility] Anion Gap 13 5 - 15 mmol/L [facility] Calcium 9.3 8.5 - 10.5 mg/dL [facility] Est Glomerular Filtration Rate 89 >=60 mL/min/1. 73 m?? [facility] Comment: The eGFR was calculated using the CKD-EPI equation. As with all creatinine based estimates of kidney function, eGFR values calculated with the CKD-EPI equation are not accurate in patients with acute kidney failure, extremes of body mass or the acutely ill. [email or web address] eGFR 103 >=60 mL/min/1. 73 m?? [facility] Comment: The eGFR was calculated using the CKD-EPI equation. As with all creatinine based estimates of kidney function, eGFR values calculated with the CKD-EPI equation are not accurate in patients with acute kidney failure, extremes of body mass or the acutely ill. [email or web address] Blood specimen (specimen) 07/30/2018 4:06 AM EDT 07/30/2018 4:38 AM EDT Narrative Resulting Agency Comment Spec In Lab Deonna T Kathya SUPERVISOR BENZENE REFINING CHEMISTRY ORDERABL ES Performing Organization Address [facility] Co de Phone Number [facility] [place] [address] * EKG 12 Lead (07/29/2018 11:04 PM EDT) Ventricular rate 101 BPM MUSE SYSTEM Atrial Rate 104 BPM MUSE SYSTEM P-R Interval 176 ms MUSE SYSTEM QRS Duration 78 ms MUSE SYSTEM Q-T Interval 380 ms MUSE SYSTEM QTC Calculated (Bezet) 492 ms MUSE SYSTEM Calculated P Lowell 106 degrees MUSE SYSTEM Calculated R Lowell 26 degrees MUSE SYSTEM Calculated T [place]ell 167 degrees MUSE SYSTEM INTERPRETATION Probable Atrial flutter with variable A-V block PVCs vs abbarrently conducted supraventricular beats Abnormal ECG When compared with ECG of 29-JUL-2018 07:21, No significant change was found Confirmed by MD PAT, KURTIS ([id number]) on 07/30/2018 4:45:35 PM MUSE SYSTEM 07/29/2018 11:0 4 PM EDT 07/30/2018 4:45 PM EDT Deonna T Kathya SUPERVISOR BENZENE REFINING ECG ORDERABLES Performing Organization Address [facility] de Phone Number MUSE SYSTEM * NENO W LMTD SPECTRAL DOPPLER COLOR DOPPLER (07/29/2018 3:33 PM EDT) EF 65 HEARTLAB SYSTEM Anatomical Region Laterality Modality Other 07/29/2018 Narrative 07/29/2018 3:51 PM EDT Procedure: ?Transesophageal Echocardiogram Patient: ?YOAN Haines ?(Age): 1945(72y) Med Rec#: ? [id number] ?Sex: ?M ? [place] [facility] [place] / Wt: ??188(cm)/97(kg) Pt. Loc: ?[employer] ?BSA: ?2.24 Study Date: ?? 07/29/2018 ?Pt. Type: Tape: ? Referring: CLAUDIA JONES Reading: Ant Suarez ([id number]) Bridge Repair Crew Person: Tricia Donis ([id number]) Interpreting Fellow: Tricia Donis ([id number]) Diagnosis: *Unspecified atrial fibrillation (I48.91) Rhythm: ? A-Fib SUMMARY: 1. Limited NENO for left atrium and left atrial appendage evaluation. No thrombus is visualized within the left atrium or atrial appendage. 2. Biventricular systolic function appears preserved wtih an estimated LV ejection fraction of 60%. 3. There is moderate mitral regurgitation. 4. See remainder of report for additional findings. Findings ? : Study Quality: ? Adequate Left Ventricle: ? Left ventricular chamber size, wall thickness, global and segmental systolic function are within normal limits. Ejection fraction is estimated to be 60%. ?The left ventricle is probably normal in size. ?Global left ventricular wall motion and contractility are probably within normal limits. ?There is normal global left ventricular systolic function. ??Ejection fraction is estimated to be 60%. Left Atrium: ? The left atrium is normal in size. ?The left atrium is probably normal in size. ?There is no evidence of spontaneous echo contrast. ?The left atrial appendage velocity is mildly reduced. ?No mass is visualized within the left atrium. ?No thrombus is visualized within the left atrium. ?No clot is noted in the left atrial appendage. ?No atrial septal defect is visualized. ?There is no patent foramen ovale visualized. ?There is no evidence of a patent foramen ovale by color Doppler. Right Ventricle: ? Right ventricular chamber size, wall thickness, and systolic function are within normal limits. ?The right ventricle is probably normal in size. ?Right ventricular global systolic function is probably normal. ?No mass is visualized in the right ventricle. ?No thrombus is visualized in the right ventricle. Right Atrium: ? The right atrium appears normal. ?The right atrium is probably normal in size. ?No spontaneous echo contrast is present in the right atrium. ?No mass is visualized in the right atrium. ?No thrombus is visualized in the right atrium. Aortic Valve: ? The aortic valve is trileaflet. The leaflets are thin with normal excursion. There is no aortic stenosis or regurgitation present. ?The aortic valve is tricuspid. ?The aortic valve leaflets are mildly thickened. Mitral Valve: ? The mitral valve appears normal in structure and function. ?The mitral valve leaflets appear normal. ?The mitral valve leaflets do not appear thickened. ?There is moderate (2+/4+) mitral regurgitation present. ?The mitral regurgitant jet is centrally directed. ?No vegetation is observed on the mitral valve. ?No thrombus is visualized on the mitral valve. Tricuspid Valve: ? The tricuspid valve appears normal in structure and function. ?The tricuspid valve leaflets are morphologically normal. ?There is trace tricuspid regurgitation present. Pericardium: ? The pericardium appears normal and there is no evidence of a pericardial effusion. ?There is no pericardial effusion. Aorta: ? 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 Venous: ? The superior vena cava appears normal in size. Neno Procedures: ? The procedure and risk were explained to the patient who consented to the study. ?After conscious sedation was administered per hospital protocol, the NENO probe was passed by Dr. Donis under the supervision of Dr. Suarez. ?The [facility] protocols for NENO procedures in the Echo Lab and Topical Anesthesia of the Pharynx were followed. The patient was assessed and thought appropriate for a NENO in the Echo Lab. Less than a total of 123.4 mg of Lidocaine was used. No rescue event occured during the procedure. ?There were no complications during the procedure. Misc: ? See remainder of report for additional findings. This report has been electronically signed by: Ant Suarez M.D. ? 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 Type: Tape: Referring: CLAUDIA JONES Reading: Ant Suarez ([id number]) Bridge [employer]air [employer] Person: Tricia Donis ([id number]) Interpreting Fellow: Tricia Donis ([id number]) Diagnosis: *Unspecified atrial fibrillation (I48.91) Rhythm: A-Fib SUMMARY: 1. Limited NENO for left atrium and left atrial appendage evaluation. No thrombus is visualized within the left atrium or atrial appendage. 2. Biventricular systolic function appears preserved wtih an estimated LV ejection fraction of 60%. 3. There is moderate mitral regurgitation. 4. See remainder of report for additional findings. Findings : Study Quality: Adequate Left Ventricle: Left ventricular chamber size, wall thickness, global and segmental systolic function are within normal limits. Ejection fraction is estimated to be 60%. The left ventricle is probably normal in size. Global left ventricular wall motion and contractility are probably within normal limits. There is normal global left ventricular systolic function. Ejection fraction is estimated to be 60%. Left Atrium: The left atrium is normal in size. The left atrium is probably normal in size. There is no evidence of spontaneous echo contrast. The left atrial appendage velocity is mildly reduced. No mass is visualized within the left atrium. No thrombus is visualized within the left atrium. No clot is noted in the left atrial appendage. No atrial septal defect is visualized. There is no patent foramen ovale visualized. There is no evidence of a patent foramen ovale by color Doppler. Right Ventricle: Right ventricular chamber size, wall thickness, and systolic function are within normal limits. The right ventricle is probably normal in size. Right ventricular global systolic function is probably normal. No mass is visualized in the right ventricle. No thrombus is visualized in the right ventricle. Right Atrium: The right atrium appears normal. The right atrium is probably normal in size. No spontaneous echo contrast is present in the right atrium. No mass is visualized in the right atrium. No thrombus is visualized in the right atrium. Aortic Valve: The aortic valve is trileaflet. The leaflets are thin with normal excursion. There is no aortic stenosis or regurgitation present. The aortic valve is tricuspid. The aortic valve leaflets are mildly thickened. Mitral Valve: The mitral valve appears normal in structure and function. The mitral valve leaflets appear normal. The mitral valve leaflets do not appear thickened. There is moderate (2+/4+) mitral regurgitation present. The mitral regurgitant jet is centrally directed. No vegetation is observed on the mitral valve. No thrombus is visualized on the mitral valve. Tricuspid Valve: The tricuspid valve appears normal in structure and function. The tricuspid valve leaflets are morphologically normal. There is trace tricuspid regurgitation present. Pericardium: The pericardium appears normal and there is no evidence of a pericardial effusion. There is no pericardial effusion. 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 Venous: The superior vena cava appears normal in size. Neno Procedures: The procedure and risk were explained to the patient who consented to the study. After conscious sedation was administered per hospital protocol, the NENO probe was passed by Dr. Donis under the supervision of Dr. Suarez. The [facility] protocols for NENO procedures in the Echo Lab and Topical Anesthesia of the Pharynx were followed. The patient was assessed and thought appropriate for a NENO in the Echo Lab. Less than a total of 123.4 mg of Lidocaine was used. No rescue event occured during the procedure. There were no complications during the procedure. Misc: See remainder of report for additional findings. This report has been electronically signed by: Ant Suarez M.D. 07/29/2018 15:50:44 Images reviewed and interpretation verified [facility] Deonna Rasheed APRN ECHO ORDERABLES * Urine Hold (07/29/2018 1:38 PM EDT) Hold, Urine Sample in lab. [facility] Urine specimen (specimen) Urine / Unknown 07/29/2018 1:38 PM EDT 07/29/2018 2:45 PM EDT Elena Hooks APRN URINE ORDERABLES [facility] [place] [address] * Urinalysis with reflex Culture (07/29/2018 1:38 PM EDT) Glucose, Urine Dipstick Negative Negative mg/dL [facility] Protein, Urine Dipstick Negative Negative mg/dL [facility] Bilirubin, Urine Dipstick Negative Negative mg/dL [facility] Comment: Clinical correlation required for positive Urine Bilirubin results as false positive may occur with some drugs and drug related products. If a false positive is suspected a serum total bilirubin should be considered if clinically indicated. Urobilinogen, Urine Dipstick Normal Normal mg/dL [facility] pH, Urn (dipstick) 5.0 5.0 - 8.0 [facility] Blood, Urine Dipstick Negative Negative mg/dL [facility] Ketone, Urine Dipstick Negative Negative mg/dL [facility] Nitrite, Urine Dipstick Negative Negative [facility] Leukocytes, Urine Dipstick Negative Negative mcL [facility] Appearance, Urine Dipstick Clear Clear [facility] Specific [place] Urine Automated 1.020 1.002 - 1.030 [facility] Color, Urine Dipstick Yellow Yellow [facility] Reflex to Culture No [facility] Urine specimen obtained by clean catch procedure (specimen) 07/29/2018 1:38 PM EDT 07/29/2018 2:45 PM EDT Narrative Resulting Agency Comment Spec In Lab Elena Hooks APRN URINE ORDERABLES [facility] [place] [id number] * EKG 12 Lead (07/29/2018 7:21 AM EDT) Ventricular rate 84 BPM MUSE SYSTEM Atrial Rate 375 BPM MUSE SYSTEM QRS Duration 72 ms MUSE SYSTEM Q-T Interval 400 ms MUSE SYSTEM QTC Calculated (Bezet) 472 ms MUSE SYSTEM Calculated R Lowell 9 degrees MUSE SYSTEM Calculated T Lowell 10 degrees MUSE SYSTEM INTERPRETATION Atrial fibrillation Abnormal ECG When compared with ECG of 28-JUL-2018 08:44, (unconfirmed) No significant change was found I personally reviewed the tracing and edited the fellows interpretation Confirmed by fellow MD Korin, Gregorio ([id number]) on 07/29/2018 2:47:56 PM Confirmed by MD Colton, Humble White ([id number]) on 07/29/2018 4:42:19 PM MUSE SYSTEM 07/29/2018 7:21 AM EDT 07/29/2018 4:42 PM EDT Deonna Ordoñezr SUPERVISOR [employer] REFINING ECG ORDERABLES MUSE SYSTEM * (ABNORMAL) Differential, Automated (07/29/2018 5:17 AM EDT) Neutrophil % 50.1 % [facility] Neutrophil Absolute 7.84(H) 1.70 - 6.10 x10(3)/[facility] Lymph % 11.6 % [facility] Lymphocytes Abs 1.8 0.9 - 3.2 x10(3)/[facility] Monocyte % 6.9 % [facility] Monocyte Abs 1.1(H) 0.3 - 0.9 x10(3)/[facility] Eos % 30.7 % [facility] Eosinophils Abs 4.8(H) 0.0 - 0.4 x10(3)/[facility] Basophil % 0.3 % [facility] Baso Absolute 0.0 0.0 - 0.1 x10(3)/[facility] Immature Gran % 0.40 % [facility] Comment: Immature granulocytes(IG's)percentage and absolute count will include metamyelocytes, myelocytes, and promyelocytes. Blood smears from CBCs yielding IG's will be scanned manually for concordance. If this scan disagrees with the automated IG or if promyelocytes are noted, a manual differential will be performed. Immature Gran Absolute 0.06(H) 0.00 - 0.04 x10(3)/ L [facility] Blood specimen (specimen) 07/29/2018 5:17 AM EDT 07/29/2018 5:44 AM EDT Narrative Resulting Agency Comment Spec In Lab Deonna Ordoñezr SUPERVIS[employer]FINING HEMATOLOGY ORDERAB LES [facility] [place] [address] * (ABNORMAL) Hemogram (07/29/2018 5:17 AM EDT) White Blood Cell 15.6(H) 4.0 - 9.5 x10(3)/[facility] Red Blood Cell 4.93 4.58 - 5.54 x10(6)/ L [facility] Hemoglobin 15.7 13.7 - 16.5 gm/dL [facility] Hematocrit 45.2 40.5 - 48.5 % [facility] Mean Cell Volume 91.7 82.9 - 93.1 fL [facility] Mean Cell Hemoglobin 31.8 27.5 - 32.1 pg [facility] Mean Cell Hemoglobin Concentration 34.7 32.0 - 35.7 gm/dL [facility] Platelet 208 145 - 357 x10(3)/[facility] RDW Standard Deviation 42.3 36.0 - 45.0 [facility] RDW coefficient of variation 12.7 11.4 - 13.8 % [facility] Mean Platelet Volume 11.1 7.6 - 12.9 fL [facility] NRBC% auto 0.0 % [facility] NRBC Absolute 0.000 0.000 - 0.000 x10(3)/[facility] Blood specimen (specimen) 07/29/2018 5:17 AM EDT 07/29/2018 5:44 AM EDT Narrative Resulting Agency Comment Spec In Lab Deonna Rasheed SUPERVIS[employer]FINING HEMATOLOGY ORDERAB LES [facility] [place] [address] * Magnesium (07/29/2018 5:17 AM EDT) Magnesium 0.85 0.69 - 1.07 mmol/L [facility] Blood specimen (specimen) 07/29/2018 5:17 AM EDT 07/29/2018 5:44 AM EDT Narrative Resulting Agency Comment Spec In Lab Deonna Elizabeth WoodKathyaradha GARCIA CHEMISTRY ORDERABL ES [facility] [place] [address] * (ABNORMAL) BMP w/fasting Glucose (07/29/2018 5:17 AM EDT) Glucose Fasting 107(H) 65 - 99 mg/dL [facility] Comment: ?Fasting* Glucose Interpretive Criteria [...] of Diabetes Mellitus, Position Statement from the [employer]. ??Diabetes Care, Volume 33, Supplement 1, Dec 2009 Blood Urea Nitrogen 20 10 - 20 mg/dL [facility] Creatinine 0.86 0.80 - 1.50 mg/dL [facility] Sodium 139 135 - 145 mmol/L [facility] Potassium 4.3 3.5 - 5.0 mmol/L [facility] Comment: Please note: ??Patients with WBC >100,000 may have falsely elevated Potassium levels. ??For accurate Potassium quantification in these patients send serum separator tube (gold top) for subsequent determinations. ??Contact the Clinical Chemistry Laboratory if there are any questions. Chloride 102 98 - 107 mmol/L [facility] Carbon Dioxide 25 22 - 31 mmol/L [facility] Anion Gap 12 5 - 15 mmol/L [facility] Calcium 9.4 8.5 - 10.5 mg/dL [facility] Est Glomerular Filtration Rate 87 >=60 mL/min/1. 73 m?? [facility] Comment: The eGFR was calculated using the CKD-EPI equation. As with all creatinine based estimates of kidney function, eGFR values calculated with the CKD-EPI equation are not accurate in patients with acute kidney failure, extremes of body mass or the acutely ill. http://[facility] I[facility] eGFR 100 >=60 mL/min/1. 73 m?? [facility] Comment: The eGFR was calculated using the CKD-EPI equation. As with all creatinine based estimates of kidney function, eGFR values calculated with the CKD-EPI equation are not accurate in patients with acute kidney failure, extremes of body mass or the acutely ill. [email or web address] [email or web address] Blood specimen (specimen) 07/29/2018 5:17 AM EDT 07/29/2018 5:44 AM EDT Narrative Resulting Agency Comment Spec In Lab Deonna Rasheed APRN CHEMISTRY ORDERABL ES [facility] [place] [id number] * CT Cervical Spine wo Contrast (07/28/2018 1:43 PM EDT) Anatomical Region Laterality Modality C-spine Computed Tomogra phy Impressions 07/28/2018 1:56 PM EDT No acute cervical spine fracture. Narrative 07/28/2018 1:56 PM EDT EXAMINATION: CT CERVICAL SPINE WO CONTRAST CLINICAL HISTORY: syncope with LOC, head trauma, rule out c spine injury TECHNIQUE: CT of the cervical spine performed without the use of intravenous contrast. COMPARISON: None FINDINGS: Overall cervical alignment is unremarkable. There is no acute cervical spine fracture. There are changes of cervical spondylosis with disc height loss, uncovertebral, and facet arthropathy at multiple levels. Procedure Note Jame Pruitt MD - 07/28/2018 EXAMINATION: CT CERVICAL SPINE WO CONTRAST CLINICAL HISTORY: syncope with LOC, head trauma, rule out c spine injury TECHNIQUE: CT of the cervical spine performed without the use ofintravenous contrast. COMPARISON: None FINDINGS: Overall cervical alignment is unremarkable. There is no acutecervical spine fracture. There are changes of cervical spondylosis with disc heightloss, uncovertebral, and facet arthropathy at multiple levels. IMPRESSION No acute cervical spine fracture. Elena Hooks [facility] [place] ORDERABLES * CT Head wo Contrast (Generic) (07/28/2018 10:11 AM EDT) Anatomical Region Laterality Modality Head Computed Tomogra phy Impressions 07/28/2018 10:37 AM EDT No acute intracranial abnormality. Evidence of prior right-sided merritt hole procedure with underlying encephalomalacic change similar to prior MRI. Mild left maxillary paranasal sinus disease. Question related to adjacent dental disease. Narrative 07/28/2018 10:37 AM EDT EXAMINATION: CT HEAD WO CONTRAST (GENERIC) CLINICAL HISTORY: on Xarelto, syncope with LOC, head trauma TECHNIQUE: CT head noncontrast COMPARISON: MRI brain dated 03/27/2015 FINDINGS: Review of bone windows demonstrates mucosal thickening along the alveolar ridge of the left maxillary antrum, question related to adjacent dental disease. There is small air-fluid level in the left maxillary antrum. There is clear appearance the remaining paranasal sinuses. There is clear appearance visualized mastoid air cells and middle ear cavities. No lytic or blastic disease. There is evidence of a prior right-sided merritt hole procedure with underlying encephalomalacic change extending to the linear fashion from the area of the merritt hole procedure. This is unchanged from prior MRI given differences in technique. There is no intracranial hemorrhage, mass, mass effect, midline shift or extra-axial fluid collection. No cortical infarctions.. Procedure Note Micheal Dominguez MD - 07/28/2018 EXAMINATION: CT HEAD WO CONTRAST (GENERIC) CLINICAL HISTORY: on Xarelto, syncope with LOC, head trauma TECHNIQUE: CT head noncontrast COMPARISON: MRI brain dated 03/27/2015 FINDINGS: Review of bone windows demonstrates mucosal thickening along the alveolarridge of the left maxillary antrum, question related to adjacent dental disease.There is small air-fluid level in the left maxillary antrum. There is clearappearance the remaining paranasal sinuses. There is clear appearance visualizedmastoid air cells and middle ear cavities. No lytic or blastic disease. There is evidence of a prior right-sided burrhole procedure with underlying encephalomalacic change extending to thelinear fashion from the area of the merritt hole procedure. This is unchanged fromprior MRI given differences in technique. There is no intracranial hemorrhage, mass, mass effect, midline shift or extra-axial fluid collection. No cortical infarctions.. IMPRESSION No acute intracranial abnormality. Evidence of prior right-sided merritt hole procedure with underlying encephalomalacic change similar to prior MRI. Mild left maxillary paranasal sinus disease. Question related to adjacentdental disease. 10:37 AM Elena Hooks APRN IMG CT ORDERABLES * POCT Glucose (07/28/2018 9:12 AM EDT) [facility] Glucose, POC 191 65 - 199 mg/dL [facility] Comment: Supplemental ranges: <140 mg/dL before meals <180 mg/dL all other times of the day Blood specimen (specimen) 07/28/2018 9:12 AM EDT 07/28/2018 9:12 AM EDT Cameron Mahmood MD POINT OF CARE TEST O RDERABLES [facility] [place] [address] * EKG 12 Lead (07/28/2018 8:44 AM EDT) Ventricular rate 77 BPM MUSE SYSTEM Atrial Rate 357 BPM MUSE SYSTEM QRS Duration 76 ms MUSE SYSTEM Q-T Interval 410 ms MUSE SYSTEM QTC Calculated (Bezet) 463 ms MUSE SYSTEM Calculated R Lowell 14 degrees MUSE SYSTEM Calculated T [place]ell 48 degrees MUSE SYSTEM INTERPRETATION Atrial fibrillation Abnormal ECG When compared with ECG of 28-JUL-2018 07:19, No significant change was found I personally reviewed the tracing and edited the fellows interpretation Confirmed by fellow MD Langley Daniel ([id number]) on 07/29/2018 2:53:27 PM Confirmed by MD Segura Shawn M. ([id number]) on 07/29/2018 4:42:14 PM MUSE SYSTEM 07/28/2018 8:44 AM EDT 07/29/2018 4:42 PM EDT Deonna T Kathya SUPERVISOR [employer] REFINING ECG ORDERABLES Performing Organization Address [facility] Co de Phone Number MUSE SYSTEM * EKG 12 Lead (07/28/2018 7:19 AM EDT) Ventricular rate 81 BPM MUSE SYSTEM Atrial Rate 326 BPM MUSE SYSTEM QRS Duration 76 ms MUSE SYSTEM Q-T Interval 402 ms MUSE SYSTEM QTC Calculated (Bezet) 466 ms MUSE SYSTEM Calculated R Lowell 7 degrees MUSE SYSTEM Calculated T [place] 63 degrees MUSE SYSTEM INTERPRETATION Atrial fibrillation Abnormal ECG When compared with ECG of 27-JUL-2018 07:24, No significant change was found I personally reviewed the tracing and edited the fellows interpretation Confirmed by fellow MD Langley Daniel ([id number]) on 07/28/2018 8:28:08 AM Confirmed by MD Segura Shawn M. ([id number]) on 07/28/2018 5:49:00 PM MUSE SYSTEM 07/28/2018 7:19 AM EDT 07/28/2018 5:49 PM EDT Deonna T Kathya SUPERVISOR [employer] REFINING ECG ORDERABLES Performing Organization Address [facility] Co de Phone Number MUSE SYSTEM * (ABNORMAL) Differential, Automated (07/28/2018 3:54 AM EDT) Neutrophil % 41.8 % [facility] Neutrophil Absolute 6.28(H) 1.70 - 6.10 x10(3)/mc L [facility] Lymph % 13.3 % [facility] Lymphocytes Abs 2.0 0.9 - 3.2 x10(3)/ L [facility] Monocyte % 5.8 % [facility] Monocyte Abs 0.9 0.3 - 0.9 x10(3)/[facility] Eos % 38.3 % [facility] Eosinophils Abs 5.8(H) 0.0 - 0.4 x10(3)/[facility] Basophil % 0.6 % [facility] Baso Absolute 0.1 0.0 - 0.1 x10(3)/[facility] Immature Gran % 0.20 % [facility] Comment: Immature granulocytes(IG's)percentage and absolute count will include metamyelocytes, myelocytes, and promyelocytes. Blood smears from CBCs yielding IG's will be scanned manually for concordance. If this scan disagrees with the automated IG or if promyelocytes are noted, a manual differential will be performed. Immature Gran Absolute 0.03 0.00 - 0.04 x10(3)/[facility] Blood specimen (specimen) 07/28/2018 3:54 AM EDT 07/28/2018 4:10 AM EDT Narrative Resulting Agency Comment Spec In Lab Deonna Rasheed SUPERVISOR [employer] REFINING HEMATOLOGY ORDERAB LES Performing Organization Address City/State/[facility] Co de Phone Number [facility] [place] [address] * (ABNORMAL) Hemogram (07/28/2018 3:54 AM EDT) White Blood Cell 15.0(H) 4.0 - 9.5 x10(3)/[facility] Red Blood Cell 5.08 4.58 - 5.54 x10(6)/[facility] Hemoglobin 16.3 13.7 - 16.5 gm/dL [facility] Hematocrit 46.4 40.5 - 48.5 % [facility] Mean Cell Volume 91.3 82.9 - 93.1 fL [facility] Mean Cell Hemoglobin 32.1 27.5 - 32.1 pg [facility] Mean Cell Hemoglobin Concentration 35.1 32.0 - 35.7 gm/dL [facility] Platelet 203 145 - 357 x10(3)/mc L [facility] RDW Standard Deviation 42.5 36.0 - 45.0 [facility] RDW coefficient of variation 12.6 11.4 - 13.8 % [facility] Mean Platelet Volume 11.0 7.6 - 12.9 [facility] NRBC% auto 0.0 % [facility] NRBC Absolute 0.000 0.000 - 0.000 x10(3)/mc L [facility] Blood specimen (specimen) 07/28/2018 3:54 AM EDT 07/28/2018 4:10 AM EDT Narrative Resulting Agency Comment Spec In Lab Deonna Rasheed APRN HEMATOLOGY ORDERAB LES Performing Organization Address City/[facility]/ZIP Co de Phone Number [facility] [place] [address] * Magnesium (07/28/2018 3:54 AM EDT) Magnesium 0.86 0.69 - 1.07 mmol/L [facility] Blood specimen (specimen) 07/28/2018 3:54 AM EDT 07/28/2018 4:10 AM EDT Narrative Resulting Agency Comment Spec In Lab Deonna Rasheed SUPERVISOR BENZENE REFINING CHEMISTRY ORDERABL ES Performing Organization Address City/[facility]/ZIP Co de Phone Number [facility] [place] [address] * (ABNORMAL) BMP w/fasting Glucose (07/28/2018 3:54 AM EDT) Glucose Fasting 118(H) 65 - 99 mg/dL [facility] Comment: ?Fasting* Glucose Interpretive Criteria [...] of Diabetes Mellitus, Position Statement from the [employer]. ??Diabetes Care, Volume 33, Supplement 1, Dec 2009 Blood Urea Nitrogen 19 10 - 20 mg/dL [facility] Creatinine 0.83 0.80 - 1.50 mg/dL [facility] Sodium 140 135 - 145 mmol/L [facility] Potassium 4.4 3.5 - 5.0 mmol/L [facility] Comment: Please note: ??Patients with WBC >100,000 may have falsely elevated Potassium levels. ??For accurate Potassium quantification in these patients send serum separator tube (gold top) for subsequent determinations. ??Contact the Clinical Chemistry Laboratory if there are any questions. Chloride 103 98 - 107 mmol/L [facility] Carbon Dioxide 26 22 - 31 mmol/L [facility] Anion Gap 11 5 - 15 mmol/L [facility] Calcium 9.7 8.5 - 10.5 mg/dL [facility] Est Glomerular Filtration Rate 88 >=60 mL/min/1. 73 m?? [facility] Comment: The eGFR was calculated using the CKD-EPI equation. As with all creatinine based estimates of kidney function, eGFR values calculated with the CKD-EPI equation are not accurate in patients with acute kidney failure, extremes of body mass or the acutely ill. [email or web address] eGFR 102 >=60 mL/min/1. 73 m?? [facility] Comment: The eGFR was calculated using the CKD-EPI equation. As with all creatinine based estimates of kidney function, eGFR values calculated with the CKD-EPI equation are not accurate in patients with acute kidney failure, extremes of body mass or the acutely ill. [email or web address] Blood specimen (specimen) 07/28/2018 3:54 AM EDT 07/28/2018 4:10 AM EDT Narrative Resulting Agency Comment Spec In Lab Deonna Rasheed APRN CHEMISTRY ORDERABL ES Performing Organization Address [facility]/State/ZIP Co de Phone Number [facility] [place] [address] * CARDIAC CATHETERIZATION (07/27/2018 11:30 AM EDT) Anatomical Region Laterality Modality Other Narrative 07/27/2018 11:39 AM EDT ?[facility] ? Cardiac Catheterization/Intervention Report ? Patient Name: Agata Flores. ? Procedure Date: 07/27/2018 ? A #: [id number] ? Primary Physician: Jose D, Min W ? Case #: [id number] ? File Name: [id number] ? Catheterization Order Number: [id number] ? [facility] ? Final Report [place], [place] ? Patient Name: ? Agata Flores ?ID#: ?[id number] ? : ?1945 ? Procedure Date: ? July 27, 2018 ?Case #: ? [id number] ? Room: ? 1 ? Case Physician: ? Min Jeffery M.D. ?Start: ?10:43 ?Fellow: ? Darion Machado M.D. ?Admission: ??07/26/2018 ? Referring Physician: ??Agata Barrera D.O. ? Procedures: ?* Coronary Angiography ?* Left Heart Catheterization ? History ?Agata Flores is a 72 year old man. He has hypertension. The patient ?has hypercholesterolemia. He has unstable angina and negative troponin. ?The patient had a remote coronary intervention procedure. He has a ?history of dyspnea with NYHA functional class III. The patient also has a ?history of atrial fibrillation/atrial flutter. Prior to the initiation of ?this procedure, the patient was designated as ASA Class III. ? Patient Status at Catheterization: ?The patient presented with: unstable angina (w/i 60 days). [place] ?Cardiovascular Society angina class was III. This patient was on beta ?blockers prior to the procedure. No stress or imaging studies were ?performed prior to this procedure. The status of the diagnostic procedure ?was Urgent. ? Technique: ?A 6 SLFr sheath was inserted in the right radial artery utilizing the ?Seldinger technique. A 7Fr sheath was inserted in the right median ?antecubital vein utilizing the Seldinger technique. The left coronary ?artery was injected utilizing a 6Fr JL 4 catheter. A 6Fr JR 4 catheter ?was used to inject the right coronary artery. Right heart catheterization ?was performed utilizing a 7Fr [place]-Naila catheter. 5,000 units of heparin ?were administered. A total of 100cc of Omnipaque were opened and 100cc of ?Omnipaque were administered. Radiation: Fluoro time was 10.4 minutes, ?dose area product was 99,919 mGYcm2 and air kerma was 1,384 mGY. ?The patient received the following medications prior to and during the ?procedure: Aspirin (any) and Unfractionated Heparin (any). ? Hemodynamics: ?Right Heart Pressures ? Hemodynamics: ? Syst Diast ? EDP ?a ?v ? m ?RA ? 1 ?1 ? 1 ?RV 25 ?2 ?PA 27 ?15 ?19 ?PCW ?21 ?15 ? Hemodynamic Profile: ?Profile 1 ? Profile 2 ?CO ? 3.79 ?3.70 ?CI ? 1.68 ?1.64 ?TSR ? 1,731 ? 1,773 ?SVR ? 1,710 ? 1,751 ?TPR ?401 ? 411 ?PVR ?84 ?86 ?Technique ?Estimated Pancho ?Thermodilution ?Left Heart Pressures ? Resting: ? Syst Diast ? EDP ?a ?v ? m ?Ao 101 ?? 67 ?82 ?LV 110 ? 8 ? Coronary Angiography: ?Dominance: Right ?Left Main ? There was mild diffuse (<=25% stenosis) disease of the entire vessel ? segment of the left main artery. ?Left Anterior Descending ? There was mild diffuse (<=25% stenosis) disease of the entire vessel ? segment of the left anterior descending artery (LAD). ??The ? previously placed stent is patent. ?Left Circumflex ? There was mild diffuse (<=25% stenosis) disease of the entire vessel ? segment of the left circumflex artery (LCX). ??The previously placed ? stent is patent. ?Right Coronary Artery ? There was mild diffuse (<=25% stenosis) disease of the entire vessel ? segment of the right coronary artery (RCA). ??The distal segment of ? the RCA had a single discrete 40% stenosis. ?Ramus ? There was mild diffuse (<=25% stenosis) disease of the entire vessel ? segment of the ramus. ??The previously placed stent is patent. ? Vascular Access: ?Vascular Access Management: ? Manual Compression of the right median antecubital vein access site ? was performed. ? Mechanical Compression of the right radial artery access site was ? performed. ? Conclusions: ?* Nonobstructive coronary artery disease ?* Decreased cardiac output ? Complications/Events: ?The patient had no complications during these procedures. ?The attending physician was present for the entire procedure. ?Dr. Min Jeffery M.D. was present during the moderate sedation ?intraservice time as documented by the sedation nurse. ??Case time = 00:37. ?Dr. Min Jeffery M.D. performed the coronary angiography and left ?heart catheterization. ? Min Jeffery M.D. ? Electronically Signed by: Min Jeffery M.D. ? Report Finalized: 07/27/2018 ??11:32 ? Report Last Ammended: 09/02/2018 ??10:32 ? Procedure Note Min Jeffery II, MD - 09/02/2018 [facility] Cardiac Catheterization/Intervention Report Patient Name: Agata Flores Procedure Date: 07/27/2018 A #: [id number] Primary Physician: Min Jeffery Case #: [id number] File Name: [id number] Catheterization Order Number: [id number] [facility] FinalReport [place], [place] Patient Name: Agata Flores ID#:[id number] :1945 Procedure Date: July 27, 2018 Case #: [id number] Room: 1 Case Physician: Min Jeffery M.D. Start: 10:43 Fellow: Darion Machado M.D. Admission:07/26/2018 Referring Physician: Agata Barrera D.O. Procedures: * Coronary Angiography * Left Heart Catheterization History Agata Flores is a 72 year old man. He has hypertension. Thepatient has hypercholesterolemia. He has unstable angina and negativetroponin. The patient had a remote coronary intervention procedure. He has a history of dyspnea with NYHA functional class III. The patient alsohas a history of atrial fibrillation/atrial flutter. Prior to theinitiation of this procedure, the patient was designated as ASA Class III. Patient Status at Catheterization: The patient presented with: unstable angina (w/i 60 days). [place] Cardiovascular Society angina class was III. This patient was onbeta blockers prior to the procedure. No stress or imaging studies were performed prior to this procedure. The status of the diagnosticprocedure was Urgent. Technique: A 6 SLFr sheath was inserted in the right radial artery utilizingthe Seldinger technique. A 7Fr sheath was inserted in the right median antecubital vein utilizing the Seldinger technique. The leftcoronary artery was injected utilizing a 6Fr JL 4 catheter. A 6Fr JR 4catheter was used to inject the right coronary artery. Right heartcatheterization was performed utilizing a 7Fr [place]-Naila catheter. 5,000 units ofheparin were administered. A total of 100cc of Omnipaque were opened [id number] of Omnipaque were administered. Radiation: Fluoro time was 10.4minutes, dose area product was 99,919 mGYcm2 and air kerma was 1,384 mGY. The patient received the following medications prior to and duringthe procedure: Aspirin (any) and Unfractionated Heparin (any). Hemodynamics: Right Heart Pressures Hemodynamics: Syst Diast EDP a v m RA 1 1 1 RV 25 2 PA 27 15 19 PCW 21 15 Hemodynamic Profile: Profile 1 Profile 2 CO 3.79 3.70 CI 1.68 1.64 TSR 1,731 1,773 SVR 1,710 1,751 TPR 401 411 PVR 84 86 Technique Estimated Pancho Thermodilution Left Heart Pressures Resting: Syst Diast EDP a v m Ao 101 67 82 LV 110 8 Coronary Angiography: Dominance: Right Left Main There was mild diffuse (<=25% stenosis) disease of the entirevessel segment of the left main artery. Left Anterior Descending There was mild diffuse (<=25% stenosis) disease of the entirevessel segment of the left anterior descending artery (LAD). The previously placed stent is patent. Left Circumflex There was mild diffuse (<=25% stenosis) disease of the entirevessel segment of the left circumflex artery (LCX). The previouslyplaced stent is patent. Right Coronary Artery There was mild diffuse (<=25% stenosis) disease of the entirevessel segment of the right coronary artery (RCA). The distal segmentof the RCA had a single discrete 40% stenosis. Ramus There was mild diffuse (<=25% stenosis) disease of the entirevessel segment of the ramus. The previously placed stent is patent. Vascular Access: Vascular Access Management: Manual Compression of the right median antecubital vein accesssite was performed. Mechanical Compression of the right radial artery access sitewas performed. Conclusions: * Nonobstructive coronary artery disease * Decreased cardiac output Complications/Events: The patient had no complications during these procedures. The attending physician was present for the entire procedure. Dr. iMn Jeffery M.D. was present during the moderate sedation intraservice time as documented by the sedation nurse. Case time =00:37. Dr. Min Jeffery M.D. performed the coronary angiography andft heart catheterization. Min Jeffery M.D. Electronically Signed by: Min Jeffery M.D. Report Finalized: 07/27/2018 11:32 Report Last Ammended: 09/02/2018 10:32 Deonnaelizabeth Rasheed SUPERVISOR BENZENE REFINING CARDIAC CATH ORDER PARK * ECHO COMPLETE (07/27/2018 9:12 AM EDT) EF 61 HEARTLAB SYSTEM Anatomical Region Laterality Modality Other 07/27/2018 Narrative 07/27/2018 9:27 AM EDT Procedure: ?Transthoracic Echocardiogram Patient: ?YOAN Haines ?(Age): 1945(72y) Med Rec#: ? [id number] ?Sex: ?M ? [place] [facility] [place]t / Wt: ??188(cm)/99(kg) Pt. Loc: ?Adult Floor ? BSA: ?2.26 Study Date: ?? 07/27/2018 ?Pt. Type: Inpatient Tape: ? Referring: JAZMIN Reading: Gamaliel Sotelo ([id number]) [employer] Person: Sander Houser [facility] Diagnosis: *Chest pain, unspecified (R07.9) Indication: ?? Chest ??pain Rhythm: ? A-Fib BP: ? 129/72 SUMMARY: 1. Mild concentric left ventricular hypertrophy is [...] from 01/31/2015, there is no significant change. Findings ? : Left Ventricle: ? The left ventricular chamber size is normal. ?Mild concentric left ventricular hypertrophy is observed. ?There is no evidence of LVOT obstruction. ?No ventricular septal defect is visualized. ?There is normal global left ventricular systolic function. ?The quantitative left ventricular ejection fraction by biplane Champagne's method is 61%. ?There are no left ventricular segmental wall motion abnormalities. ?Left sided filling pressure could not be assessed by Doppler. Left Atrium: ? The left atrium is moderately dilated. 42 ml/m2. ?No atrial septal defect is visualized. Right Ventricle: ? The right ventricle is normal in size. ?Right ventricular global systolic function is normal. ?The estimated pulmonary artery systolic pressure is 33 mmHg. ?The estimated right atrial pressure is 3 mmHg. Right Atrium: ? The right atrium is mildly dilated. Aortic Valve: ? The aortic valve is tricuspid. ?The left coronary cusp of the aortic valve is thickened. ?The non coronary cusp of the aortic valve is thickened. ?Mild aortic leaflet calcification is visualized. ?There is aortic annular calcification. ?There is no evidence of aortic valve stenosis. ?There is a trace of aortic regurgitation present. Mitral Valve: ? The mitral valve appears normal in structure and function. ?There is thickening of the anterior mitral valve leaflet. ?There is no evidence of mitral valve leaflet prolapse. ?There is mitral annular calcification. ?There is no evidence of mitral stenosis. ?There is trace mitral regurgitation present. Tricuspid Valve: ? The tricuspid valve appears normal in structure and function. ?There is trace tricuspid regurgitation present. Pulmonic Valve: ? The pulmonic valve appears normal in structure and function. ?No vegetation is observed on the pulmonic valve. Pericardium: ? The pericardium appears normal and there is no evidence of a pericardial effusion. Aorta: ? The aortic root is normal in size. ?The ascending aorta is normal in size. ?There is no evidence of coarctation of the aorta. Pulmonary Artery: ? The main pulmonary artery appears normal. Venous: ? The inferior vena cava appears normal in size. ?There is a greater than 50% respiratory change in the inferior vena cava dimension. Misc: ? See remainder of report for additional findings. ?Two-dimensional echo, spectral Doppler and color Doppler performed. Chambers 2D ?Value ?Units (Range) ? IVSd (2D) ? 1.4 ?cm ? LVPWd (2D) ?1.3 ?cm ? IVS:LVPW ratio (2D) 1.1 ?ratio ? RWT (2D) ?0.6 ?ratio ? RWT PW (2D) ? 0.5 ?ratio ? LVIDd (2D) ?4.7 ?cm ? LVIDs (2D) ?3.2 ?cm ? LVIDd (2D) index ?2.1 ?cm/m2 ? LVIDs (2D) index ?1.4 ?cm/m2 ? LV FS (2D) ?31 ? % ? EF Teichholz (2D) ?? 58 ? % ? Ao root diameter (2D3.6 ?cm (2.1 - 3.6) ? Ascending Ao ?3.7 ?cm (2 - 3.5) ? Volumes/Mass ?Value ?Units (Range) ? LA Area 4 CH ?26 ? cm2 (<21) ? LA ESV BP (A/L) inde41.6 ? ml/m2 ? RA AREA 4CH ? 20 ? cm2 ? LA ESV BP (MOD) inde42 ? ml/m2 ? LV ESV SP 4CH (MOD) 18.4 ? ml ? LV ESV SP 2CH (MOD) 14.8 ? ml ? LV EDV BP ? 49.1 ? ml ? LV ESV BP ? 19.2 ? ml ? LV EDV BP index ? 21.7 ? ml/m2 ? LV ESV BP index ? 8.5 ?ml/m2 ? BP EF (MOD) ? 61 ? % ? LV mass (2D) ?240.6 ?g ? LV mass (2D) index ??106.5 ?g/m2 ? Diastolic/Systolic Function ?Value ?Units (Range) ? MV E-wave Vmax ?1.4 ?m/sec ? LV septal e' Vmax ?? 0.1 ?m/sec ? LV lateral e' Vmax ??0.1 ?m/sec ? LV average e' Vmax ??0.1 ?m/sec ? LV E:e' septal ratio15.7 ? ratio ? LV E:e' lateral rati17.7 ? ratio ? LV average E:e' rati17.7 ? ratio ? Aortic Valve ?Value ?Units (Range) ? AV Vmax ? 1.1 ?m/sec ? AV peak gradient ?4.7 ?mmHg ? LVOT Vmax ? 0.8 ?m/sec ? LVOT peak gradient ??2.7 ?mmHg ? DOI (Vmax) ?0.8 ?ratio ? Tricuspid Valve ?Value ?Units (Range) ? TR Vmax ? 2.7 ?m/sec ? TR peak gradient ?30 ? mmHg ? RAP ? 3 ?mmHg ? RVSP ?33 ? mmHg ? Wall Motion: Segment Name ?Rest ? Base-Anteroseptal ?? Normal ? Base-Anterior ? Normal ? Base-Anterolateral ??Normal ? Base-Posterolateral Normal ? Base-Inferior ? Normal ? Base-Inferoseptal ?? Normal ? Mid-Anteroseptal ?Normal ? Mid-Anterior ?Normal ? Mid-Anterolateral ?? Normal ? Mid-Posterolateral ??Normal ? Mid-Inferior ?Normal ? Mid-Inferoseptal ?Normal ? [place]-Septal ? Normal ? [place]-Anterior ? Normal ? [place]-Lateral ?Normal ? [place]-Inferior ? Normal ? [place]-Tip ?Normal ? This report has been electronically signed by: Gamaliel Sotelo MD ? 07/27/2018 09:26:48 Images reviewed and interpretation verified [facility] Procedure Note Gamaliel Sotelo MD - 07/27/2018 Procedure: Transthoracic Echocardiogram Patient: OYAN AVELAR(Age): 1945(72y) Med Rec#: [id number] Sex: M [place] [facility] [place] / Wt: 188(cm)/99(kg) Pt. Loc: Adult Floor BSA: 2.26 Study Date: 07/27/2018 Pt. Type: Inpatient Tape: Referring: JAZMIN Reading: Gamaliel Sotelo ([id number]) Bridge [employer]air Crew Person: Sander Houser RD Diagnosis: *Chest pain, unspecified (R07.9) Indication: Chest pain Rhythm: A-Fib BP: 129/72 SUMMARY: 1. Mild concentric left ventricular hypertrophy is [...] from 01/31/2015, there is no significant change. Findings : Left Ventricle: The left ventricular chamber size is normal. Mild concentric left ventricular hypertrophy is observed. There is no evidence of LVOT obstruction. No ventricular septal defect is visualized. There is normal global left ventricular systolic function. The quantitative left ventricular ejection fraction by biplane Champagne's method is 61%. There are no left ventricular segmental wall motion abnormalities. Left sided filling pressure could not be assessed by Doppler. Left Atrium: The left atrium is moderately dilated. 42 ml/m2. No atrial septal defect is visualized. Right Ventricle: The right ventricle is normal in size. Right ventricular global systolic function is normal. The estimated pulmonary artery systolic pressure is 33 mmHg. The estimated right atrial pressure is 3 mmHg. Right Atrium: The right atrium is mildly dilated. Aortic Valve: The aortic valve is tricuspid. The left coronary cusp of the aortic valve is thickened. The non coronary cusp of the aortic valve is thickened. Mild aortic leaflet calcification is visualized. There is aortic annular calcification. There is no evidence of aortic valve stenosis. There is a trace of aortic regurgitation present. Mitral Valve: The mitral valve appears normal in structure and function. There is thickening of the anterior mitral valve leaflet. There is no evidence of mitral valve leaflet prolapse. There is mitral annular calcification. There is no evidence of mitral stenosis. There is trace mitral regurgitation present. Tricuspid Valve: The tricuspid valve appears normal in structure and function. There is trace tricuspid regurgitation present. Pulmonic Valve: The pulmonic valve appears normal in structure and function. No vegetation is observed on the pulmonic valve. Pericardium: The pericardium appears normal and there is no evidence of a pericardial effusion. Aorta: The aortic root is normal in size. The ascending aorta is normal in size. There is no evidence of coarctation of the aorta. Pulmonary Artery: The main pulmonary artery appears normal. Venous: The inferior vena cava appears normal in size. There is a greater than 50% respiratory change in the inferior vena cava dimension. Misc: See remainder of report for additional findings. Two-dimensional echo, spectral Doppler and color Doppler performed. Chambers 2D Value Units (Range) IVSd (2D) 1.4 cm LVPWd (2D) 1.3 cm IVS:LVPW ratio (2D) 1.1 ratio RWT (2D) 0.6 ratio RWT PW (2D) 0.5 ratio LVIDd (2D) 4.7 cm LVIDs (2D) 3.2 cm LVIDd (2D) index 2.1 cm/m2 LVIDs (2D) index 1.4 cm/m2 LV FS (2D) 31 % EF Teichholz (2D) 58 % Ao root diameter (2D3.6 cm (2.1 - 3.6) Ascending Ao 3.7 cm (2 - 3.5) Volumes/Mass Value Units (Range) LA Area 4 CH 26 cm2 (<21) LA ESV BP (A/L) inde41.6 ml/m2 RA AREA 4CH 20 cm2 LA ESV BP (MOD) inde42 ml/m2 LV ESV SP 4CH (MOD) 18.4 ml LV ESV SP 2CH (MOD) 14.8 ml LV EDV BP 49.1 ml LV ESV BP 19.2 ml LV EDV BP index 21.7 ml/m2 LV ESV BP index 8.5 ml/m2 BP EF (MOD) 61 % LV mass (2D) 240.6 g LV mass (2D) index 106.5 g/m2 Diastolic/Systolic Function Value Units (Range) MV E-wave Vmax 1.4 m/sec LV septal e' Vmax 0.1 m/sec LV lateral e' Vmax 0.1 m/sec LV average e' Vmax 0.1 m/sec LV E:e' septal ratio15.7 ratio LV E:e' lateral rati17.7 ratio LV average E:e' rati17.7 ratio Aortic Valve Value Units (Range) AV Vmax 1.1 m/sec AV peak gradient 4.7 mmHg LVOT Vmax 0.8 m/sec LVOT peak gradient 2.7 mmHg DOI (Vmax) 0.8 ratio Tricuspid Valve Value Units (Range) TR Vmax 2.7 m/sec TR peak gradient 30 mmHg RAP 3 mmHg RVSP 33 mmHg Wall Motion: Segment Name Rest Base-Anteroseptal Normal Base-Anterior Normal Base-Anterolateral Normal Base-Posterolateral Normal Base-Inferior Normal Base-Inferoseptal Normal Mid-Anteroseptal Normal Mid-Anterior Normal Mid-Anterolateral Normal Mid-Posterolateral Normal Mid-Inferior Normal Mid-Inferoseptal Normal [place]-Septal Normal [place]-Anterior Normal [place]-Lateral Normal [place]-Inferior Normal [place]-Tip Normal This report has been electronically signed by: Gamaliel Sotelo MD 07/27/2018 09:26:48 Images reviewed and interpretation verified [facility] Deonna T Kathya SUPERVISOR BENZENE REFINING ECHO ORDERABLES * EKG 12 Lead (07/27/2018 7:24 AM EDT) Pathologist [facility] Ventricular rate 75 BPM MUSE SYSTEM Atrial Rate 166 BPM MUSE SYSTEM QRS Duration 76 ms MUSE SYSTEM Q-T Interval 382 ms MUSE SYSTEM QTC Calculated (Bezet) 426 ms MUSE SYSTEM Calculated R [place] 12 degrees MUSE SYSTEM Calculated T [place] 112 degrees MUSE SYSTEM INTERPRETATION Atrial fibrillation Abnormal ECG When compared with ECG of 26-JUL-2018 11:14, No significant change was found I personally reviewed the tracing and edited the fellows interpretation Confirmed by fellow MD Langley Daniel ([id number]) on 07/27/2018 11:57:52 AM Confirmed by Denys Miller MD ([id number]) on 07/27/2018 2:50:48 PM MUSE SYSTEM 07/27/2018 7:24 AM EDT 07/27/2018 2:50 PM EDT Deonna T Kathya SUPERVISOR BENZENE REFINING ECG ORDERABLES MUSE SYSTEM * (ABNORMAL) Differential, Automated (07/27/2018 3:46 AM EDT) Pathologist [facility] Neutrophil % 34.6 % [facility] Neutrophil Absolute 5.07 1.70 - 6.10 x10(3)/mc L [facility] Lymph % 18.7 % [facility] Lymphocytes Abs 2.7 0.9 - 3.2 x10(3)/mc L [facility] Monocyte % 5.5 % [facility] Monocyte Abs 0.8 0.3 - 0.9 x10(3)/mc L [facility] Eos % 40.5 % [facility] Eosinophils Abs 5.9(H) 0.0 - 0.4 x10(3)/mc L [facility] Basophil % 0.6 % [facility] Baso Absolute 0.1 0.0 - 0.1 x10(3)/mc L [facility] Immature Gran % 0.10 % [facility] Comment: Immature granulocytes(IG's)percentage and absolute count will include metamyelocytes, myelocytes, and promyelocytes. Blood smears from CBCs yielding IG's will be scanned manually for concordance. If this scan disagrees with the automated IG or if promyelocytes are noted, a manual differential will be performed. Immature Gran Absolute 0.02 0.00 - 0.04 x10(3)/[facility] Blood specimen (specimen) 07/27/2018 3:46 AM EDT 07/27/2018 4:06 AM EDT Narrative Resulting Agency Comment Spec In Lab Deonna Rasheed APRN HEMATOLOGY ORDERAB LES [facility] [place] [address] * (ABNORMAL) Hemogram (07/27/2018 3:46 AM EDT) White Blood Cell 14.7(H) 4.0 - 9.5 x10(3)/[facility] LABORATORY Red Blood Cell 4.89 4.58 - 5.54 x10(6)/[facility] LABORATORY Hemoglobin 15.7 13.7 - 16.5 gm/dL [facility] Hematocrit 44.4 40.5 - 48.5 % [facility] Mean Cell Volume 90.8 82.9 - 93.1 fL [facility] Mean Cell Hemoglobin 32.1 27.5 - 32.1 pg [facility] Mean Cell Hemoglobin Concentration 35.4 32.0 - 35.7 gm/dL [facility] Platelet 207 145 - 357 x10(3)/[facility] LABORATORY RDW Standard Deviation 41.4 36.0 - 45.0 fL [facility] RDW coefficient of variation 12.6 11.4 - 13.8 % [facility] Mean Platelet Volume 10.7 7.6 - 12.9 fL [facility] NRBC% auto 0.0 % [facility] NRBC Absolute 0.000 0.000 - 0.000 x10(3)/mc L [facility] Blood specimen (specimen) 07/27/2018 3:46 AM EDT 07/27/2018 4:06 AM EDT Narrative Resulting Agency Comment Spec In Lab Deonna Rasheed SUPERVISOR BENZ[employer]FINING HEMATOLOGY ORDERAB LES Performing Organization Address [facility] Co de Phone Number [facility] [place] [address] * Magnesium (07/27/2018 3:46 AM EDT) Magnesium 0.86 0.69 - 1.07 mmol/L [facility] Blood specimen (specimen) 07/27/2018 3:46 AM EDT 07/27/2018 4:06 AM EDT Narrative Resulting Agency Comment Spec In Lab Deonna Rasheed SUPERVISOR BENZENE REFINING CHEMISTRY ORDERABL ES Performing Organization Address [facility] Phone Number [facility] [place] [address] * (ABNORMAL) BMP w/fasting Glucose (07/27/2018 3:46 AM EDT) Glucose Fasting 111(H) 65 - 99 mg/dL [facility] Comment: ?Fasting* Glucose Interpretive Criteria [...] of Diabetes Mellitus, Position Statement from the [employer]. ??Diabetes Care, Volume 33, Supplement 1, Dec 2009 Blood Urea Nitrogen 19 10 - 20 mg/dL [facility] Creatinine 0.89 0.80 - 1.50 mg/dL [facility] Sodium 138 135 - 145 mmol/L [facility] Potassium 4.4 3.5 - 5.0 mmol/L [facility] Comment: Please note: ??Patients with WBC >100,000 may have falsely elevated Potassium levels. ??For accurate Potassium quantification in these patients send serum separator tube (gold top) for subsequent determinations. ??Contact the Clinical Chemistry Laboratory if there are any questions. Chloride 103 98 - 107 mmol/L [facility] Carbon Dioxide 23 22 - 31 mmol/L [facility] Anion Gap 12 5 - 15 mmol/L [facility] Calcium 9.7 8.5 - 10.5 mg/dL [facility] Est Glomerular Filtration Rate 85 >=60 mL/min/1. 73 m?? [facility] Comment: The eGFR was calculated using the CKD-EPI equation. As with all creatinine based estimates of kidney function, eGFR values calculated with the CKD-EPI equation are not accurate in patients with acute kidney failure, extremes of body mass or the acutely ill. http://NOSTROMO ICT/DHMCnkf eGFR 99 >=60 mL/min/1. 73 m?? [facility] Comment: The eGFR was calculated using the CKD-EPI equation. As with all creatinine based estimates of kidney function, eGFR values calculated with the CKD-EPI equation are not accurate in patients with acute kidney failure, extremes of body mass or the acutely ill. [email or web address] ICT/DHMCnkf Blood specimen (specimen) 07/27/2018 3:46 AM EDT 07/27/2018 4:06 AM EDT Narrative Resulting Agency Comment Spec In Lab Deonna Rasheed APRN CHEMISTRY ORDERABL ES [facility] [place] [address] * Cardiac Enzymes (LEB/CGP) (07/26/2018 10:30 PM EDT) [facility] Troponin-T <0.01 0.00 - 0.00 ng/mL [facility] Comment: The 99th percentile for Troponin T is less than 0.01 ng/mL, any detectable cTnT concentration using this assay should be considered elevated. According to the third universal definition of myocardial infarction the following criteria with a clinical presentation consistent with acute myocardial ischemia meets the diagnosis for a myocardial infarction (NH). Detection of a rise and/or fall of cTnT, with at least one value greater than the 99th percentile (> or = 0.01) and with at least one of the following ?? Symptoms of ischemia ?? New or presumed new significant FB-tknrpdh-P wave (ST-T) changes or new left bundle branch block (LBBB) ?? Development of pathologic Q waves in the ECG ?? Imaging evidence of new loss of viable myocardium or new regional wall motion abnormality ?? Identification of an intracoronary thrombus by angiography or autopsy Samples for cTnT testing should be obtained serially upon first assessment and again 3 to 6 hours later. If the clinical suspicion is high and previous samples have been negative an additional sample may be indicated. Reference: Third Eclectic Definition of Myocardial Infarction. Journal of the [employer] 2012;60:1581-98 Creatine Kinase 23 0 - 200 unit/L [facility] Blood specimen (specimen) 07/26/2018 10:30 PM EDT 07/26/2018 11:04 PM EDT Narrative Resulting Agency Comment Spec In Lab Deonna Rasheed APRN CHEMISTRY ORDERABL ES [facility] [place] [address] * Cardiac Enzymes (LEB/CGP) (07/26/2018 4:31 PM EDT) [facility] Troponin-T <0.01 0.00 - 0.00 ng/mL [facility] Comment: The 99th percentile for Troponin T is less than 0.01 ng/mL, any detectable cTnT concentration using this assay should be considered elevated. According to the third universal definition of myocardial infarction the following criteria with a clinical presentation consistent with acute myocardial ischemia meets the diagnosis for a myocardial infarction (NH). Detection of a rise and/or fall of cTnT, with at least one value greater than the 99th percentile (> or = 0.01) and with at least one of the following ?? Symptoms of ischemia ?? New or presumed new significant GK-xmfjysp-Q wave (ST-T) changes or new left bundle branch block (LBBB) ?? Development of pathologic Q waves in the ECG ?? Imaging evidence of new loss of viable myocardium or new regional wall motion abnormality ?? Identification of an intracoronary thrombus by angiography or autopsy Samples for cTnT testing should be obtained serially upon first assessment and again 3 to 6 hours later. If the clinical suspicion is high and previous samples have been negative an additional sample may be indicated. Reference: Third Eclectic Definition of Myocardial Infarction. Journal of the [employer] 2012;60:1581-98 Creatine Kinase 22 0 - 200 unit/L [facility] Blood specimen (specimen) 07/26/2018 4:31 PM EDT 07/26/2018 4:48 PM EDT Narrative Resulting Agency Comment Spec In Lab Deonna Rasheed APRN CHEMISTRY ORDERABL ES [facility] [place] [address] * Hemoglobin A1c (07/26/2018 11:44 AM EDT) Hemoglobin A1c 5.6 4.3 - 5.6 % [facility] Comment: Reference Range: 4.3 - [...] Mellitus, Diabetes Care 2013; 36: Suppl. 1, S67-78 Estimated Average Glucose See note mg/dL [facility] Comment: Estimated Average Glucose not [...] into estimated average glucose values. ??Diabetes Care 2008:31(8):9180-8763. Blood specimen (specimen) Venous Draw / Unknown 07/26/2018 11:44 AM EDT 07/26/2018 12:50 PM EDT Narrative Resulting Agency Comment Spec In Lab Deonna Rasheed APRN CHEMISTRY ORDERABL ES [facility] [place] [address] * TSH (07/26/2018 11:44 AM EDT) Thyroid Stimulating Hormone 3.98 0.27 - 4.20 mlU/ML [facility] Blood specimen (specimen) Venous Draw / Unknown 07/26/2018 11:44 AM EDT 07/26/2018 11:52 AM EDT Narrative Resulting Agency Comment Spec In Lab Deonna Rasheed APRN CHEMISTRY ORDERABL ES [facility] [place] [address] * Scan, Peripheral Blood (07/26/2018 11:44 AM EDT) Pathologist [facility] Plat estimate Normal [facility] RBC Morphology Normal [facility] Blood specimen (specimen) 07/26/2018 11:44 AM EDT 07/26/2018 11:49 AM EDT Narrative Resulting Agency Comment Spec In Lab Janet ALMONTE HEMATOLOGY ORDERABLE S Performing Organization Address City/[facility]/ZIP Co de Phone Number [facility] [place] [address] * (ABNORMAL) Differential, Automated (07/26/2018 11:44 AM EDT) [facility] Neutrophil % 43.7 % [facility] Neutrophil Absolute 6.32(H) 1.70 - 6.10 x10(3)/mc L [facility] Lymph % 11.7 % [facility] Lymphocytes Abs 1.7 0.9 - 3.2 x10(3)/mc L [facility] Monocyte % 5.7 % [facility] Monocyte Abs 0.8 0.3 - 0.9 x10(3)/mc L [facility] Eos % 38.1 % [facility] Eosinophils Abs 5.5(H) 0.0 - 0.4 x10(3)/mc L [facility] Basophil % 0.5 % [facility] Baso Absolute 0.1 0.0 - 0.1 x10(3)/mc L [facility] Immature Gran % 0.30 % [facility] Comment: Immature granulocytes(IG's)percentage and absolute count will include metamyelocytes, myelocytes, and promyelocytes. Blood smears from CBCs yielding IG's will be scanned manually for concordance. If this scan disagrees with the automated IG or if promyelocytes are noted, a manual differential will be performed. Immature Gran Absolute 0.04 0.00 - 0.04 x10(3)/mc L [facility] Blood specimen (specimen) 07/26/2018 11:44 AM EDT 07/26/2018 11:49 AM EDT Narrative Resulting Agency Comment Spec In Lab Janet ALMONTE HEMATOLOGY ORDERABLE S [facility] [place] [address] * (ABNORMAL) Hemogram (07/26/2018 11:44 AM EDT) White Blood Cell 14.4(H) 4.0 - 9.5 x10(3)/mc L [facility] Red Blood Cell 4.73 4.58 - 5.54 x10(6)/mc L [facility] Hemoglobin 14.9 13.7 - 16.5 gm/dL [facility] Hematocrit 43.2 40.5 - 48.5 % [facility] Mean Cell Volume 91.3 82.9 - 93.1 fL [facility] Mean Cell Hemoglobin 31.5 27.5 - 32.1 pg [facility] Mean Cell Hemoglobin Concentration 34.5 32.0 - 35.7 gm/dL [facility] Platelet 209 145 - 357 x10(3)/mc L [facility] RDW Standard Deviation 41.9 36.0 - 45.0 [facility] LABORATORY RDW coefficient of variation 12.7 11.4 - 13.8 % [facility] Mean Platelet Volume 11.1 7.6 - 12.9 fL [facility] NRBC% auto 0.0 % [facility] NRBC Absolute 0.000 0.000 - 0.000 x10(3)/mc L [facility] Blood specimen (specimen) 07/26/2018 11:44 AM EDT 07/26/2018 11:49 AM EDT Narrative Resulting Agency Comment Spec In Lab Janet ALMONTE HEMATOLOGY ORDERABLE S Performing Organization Address [facility] Co de Phone Number [facility] [place] [address] * APTT (07/26/2018 11:44 AM EDT) Partial Thromboplastin Time 34 25 - 37 sec [facility] Comment: The PTT is NOT appropriate for heparin monitoring. Use the Anti-Xa level for heparin monitoring (HEP UFH) or LMWH monitoring (HEP LMW). A PTT less than 37 seconds generally indicates adequate hemostasis. Blood specimen (specimen) 07/26/2018 11:44 AM EDT 07/26/2018 11:49 AM EDT Narrative Resulting Agency Comment Spec In Lab Cameron Mahmood MD HEMATOLOGY ORDERABLE S Performing Organization Address [facility] de Phone Number [facility] [place] [address] * (ABNORMAL) Prothrombin Time (07/26/2018 11:44 AM EDT) Prothrombin Time 13.4(H) 9.4 - 12.5 sec [facility] International Normalization Ratio 1.2 [facility] Comment: An INR <2.0 indicates [...] depending on clinical circumstances. Blood specimen (specimen) 07/26/2018 11:44 AM EDT 07/26/2018 11:49 AM EDT Narrative Resulting Agency Comment Spec In Lab Cameron Mahmood MD HEMATOLOGY ORDERABLE S [facility] [place] [address] * (ABNORMAL) pro-Brain Natriuretic Peptide (07/26/2018 11:44 AM EDT) NT-proBNP 453(H) <=125 pg/mL [facility] Blood specimen (specimen) 07/26/2018 11:44 AM EDT 07/26/2018 11:49 AM EDT Narrative Resulting Agency Comment Spec In Lab Cameron Mahmood MD CHEMISTRY ORDERABLES Performing Organization Address City/[facility]/ZIP Co de Phone Number [facility] [place] [address] * Cardiac Enzymes (LEB/CGP) (07/26/2018 11:44 AM EDT) Pathologist [facility] Troponin-T <0.01 0.00 - 0.00 ng/mL [facility] Comment: The 99th percentile for Troponin T is less than 0.01 ng/mL, any detectable cTnT concentration using this assay should be considered elevated. According to the third universal definition of myocardial infarction the following criteria with a clinical presentation consistent with acute myocardial ischemia meets the diagnosis for a myocardial infarction (NH). Detection of a rise and/or fall of cTnT, with at least one value greater than the 99th percentile (> or = 0.01) and with at least one of the following ?? Symptoms of ischemia ?? New or presumed new significant HN-moedilm-S wave (ST-T) changes or new left bundle branch block (LBBB) ?? Development of pathologic Q waves in the ECG ?? Imaging evidence of new loss of viable myocardium or new regional wall motion abnormality ?? Identification of an intracoronary thrombus by angiography or autopsy Samples for cTnT testing should be obtained serially upon first assessment and again 3 to 6 hours later. If the clinical suspicion is high and previous samples have been negative an additional sample may be indicated. Reference: Third Eclectic Definition of Myocardial Infarction. Journal of the [employer] 2012;60:1581-98 Creatine Kinase <20 0 - 200 unit/L [facility] Blood specimen (specimen) 07/26/2018 11:44 AM EDT 07/26/2018 11:49 AM EDT Narrative Resulting Agency Comment Spec In Lab Deonna Rasheed SUPERVISOR BENZENE REFINING CHEMISTRY ORDERABL ES [facility] [place] [address] * Basic Metabolic Panel (non-fasting) (07/26/2018 11:44 AM EDT) Glucose 118 65 - 199 mg/dL [facility] Comment:Diabetes: >=200 mg/d L plus symptoms Blood Urea Nitrogen 20 10 - 20 mg/dL [facility] Creatinine 0.82 0.80 - 1.50 mg/dL [facility] Sodium 137 135 - 145 mmol/L [facility] Potassium 4.2 3.5 - 5.0 mmol/L [facility] Comment: Please note: ??Patients with WBC >100,000 may have falsely elevated Potassium levels. ??For accurate Potassium quantification in these patients send serum separator tube (gold top) for subsequent determinations. ??Contact the Clinical Chemistry Laboratory if there are any questions. Chloride 102 98 - 107 mmol/L [facility] Carbon Dioxide 24 22 - 31 mmol/L [facility] Anion Gap 11 5 - 15 mmol/L [facility] Calcium 9.4 8.5 - 10.5 mg/dL [facility] Est Glomerular Filtration Rate 88 >=60 mL/min/1. 73 m?? [facility] Comment: The eGFR was calculated using the CKD-EPI equation. As with all creatinine based estimates of kidney function, eGFR values calculated with the CKD-EPI equation are not accurate in patients with acute kidney failure, extremes of body mass or the acutely ill. http://NOSTROMO ICT/DHMCnkf eGFR 102 >=60 mL/min/1. 73 m?? [facility] Comment: The eGFR was calculated using the CKD-EPI equation. As with all creatinine based estimates of kidney function, eGFR values calculated with the CKD-EPI equation are not accurate in patients with acute kidney failure, extremes of body mass or the acutely ill. http://NOSTROMO ICT/DHMCnkf Blood specimen (specimen) 07/26/2018 11:44 AM EDT 07/26/2018 11:49 AM EDT Narrative Resulting Agency Comment Spec In Lab Cameron Mahmood MD CHEMISTRY ORDERABLES Performing Organization Address City/[facility] Co de Phone Number [facility] [place] [address] * EKG 12 Lead (07/26/2018 11:14 AM EDT) Ventricular rate 93 BPM MUSE SYSTEM Atrial Rate 86 BPM MUSE SYSTEM QRS Duration 76 ms MUSE SYSTEM Q-T Interval 366 ms MUSE SYSTEM QTC Calculated (Bezet) 455 ms MUSE SYSTEM Calculated R [place] 30 degrees MUSE SYSTEM Calculated T [place] 83 degrees MUSE SYSTEM INTERPRETATION Atrial fibrillation with premature ventricular or aberrantly conducted complexes Abnormal ECG No previous ECGs available Confirmed by MD Maki Kevin ([id number]) on 07/26/2018 6:28:42 PM MUSE SYSTEM 07/26/2018 11:1 4 AM EDT 07/26/2018 6:28 PM EDT Cameron Mahmood MD ECG ORDERABLES Performing Organization Address [facility] de Phone Number MUSE SYSTEM * SCAN DOC: CYLINDER LOADER (07/26/2018 12:00 AM EDT) Anatomical Region Laterality Modality Other Narrative 07/26/2018 12:00 AM EDT Ordered by an unspecified provider. Scanning Provider MEDIA MGR SCAN EXT O RDR/RSLT documented in this encounter Visit Diagnoses Not on filedocumented in this encounter Admitting Diagnoses Diagnosis Chest pain Chest pain, unspecified documented in this encounter Administered Medications Inactive Administered Medications - up to 3 most recent administrations Medication Order MAR Action Action Date Dose Rate Site aspirin EC tablet 81 mg 81 mg, Oral, DAILY, First dose on 07/27/18 at 0900, Until Discontinued, Routine Given 08/01/2018 9:09 AM EDT 81 mg Given 07/31/2018 8:31 AM EDT 81 mg Given 07/30/2018 8:10 AM EDT 81 mg brimonidine (ALPHAGAN) 0.2 % ophthalmic solution 1 drop 1 drop, Both Eyes, 2 TIMES DAILY, First dose on 07/26/18 at 2100, Until Discontinued, Routine Given 08/01/2018 9:13 AM EDT 1 drop Given 07/31/2018 9:20 PM EDT 1 drop Given 07/31/2018 8:31 AM EDT 1 drop magnesium oxide (MAG-OX) tablet 400 mg 400 mg, Oral, DAILY, First dose on 08/01/18 at 1200, Until Discontinued, Routine Given 08/01/2018 12:24 PM EDT 400 mg metoprolol tartrate (LOPRESSOR) tablet 25 mg 25 mg, Oral, EVERY 6 HOURS SCHEDULED, First dose on 07/26/18 at 1300, Until Discontinued, Routine Given 08/01/2018 12:24 PM EDT 25 mg Given 08/01/2018 5:32 AM EDT 25 mg Given 08/01/2018 12:16 AM EDT 25 mg rivaroxaban (XARELTO) tablet 20 mg 20 mg, Oral, DAILY WITH DINNER, First dose on 07/27/18 at 1700, Until Discontinued, Must be administered with food., Routine, Restricted anticoagulant, choose the most appropriate response: Approved indication of non-valvular atrial fibrillation Given 07/31/2018 5:23 PM EDT 20 mg Given 07/30/2018 4:54 PM EDT 20 mg Given 07/29/2018 4:19 PM EDT 20 mg rosuvastatin (CRESTOR) tablet 10 mg 10 mg, Oral, EVERY EVENING, First dose (after last modification) on 07/26/18 at 1700, Until Discontinued, Routine Given 07/31/2018 5:23 PM EDT 10 mg Given 07/30/2018 4:54 PM EDT 10 mg Given 07/29/2018 4:18 PM EDT 10 mg timolol (TIMOPTIC) 0.5 % ophthalmic solution 1 drop 1 drop, Both Eyes, 2 TIMES DAILY, First dose on 07/26/18 at 2100, Until Discontinued, Routine Given 08/01/2018 9:09 AM EDT 1 drop Given 07/31/2018 9:21 PM EDT 1 drop Given 07/31/2018 8:31 AM EDT 1 drop documented in this encounter Active and Recently Administered Medications Times are shown in EDT. Scheduled Medication Order 07/30/2018 07/31/2018 08/01/2018 aspirin EC tablet 81 mg 81 mg, Oral, DAILY, First dose on Fri07/27/18 at 0900, Until Discontinued, Routine 0810 (Given - Provider: Amaedo Espinosa RN)1054 ([facility] Hold - Provider: Admin Adt - Reason: Transfer to a Procedural area)1116 ([facility] Unhold - Provider: Admin Adt)1155 ([facility] Hold - Provider: Admin Adt - Reason: Transfer to a Procedural area)1217 ([facility] Unhold - Provider: Admin Adt) 0831 (Given - Provider: Amadeo Espinosa RN) 0909 (Given - Provider: Holly Alexandre, RN) brimonidine (ALPHAGAN) 0.2 % ophthalmic solution 1 drop(Linked Group 1) 1 drop, Both Eyes, 2 TIMES DAILY, First dose on Fri07/26/18 at 2100, Until Discontinued, Routine 0810 (Given - Provider: Amadeo Espinosa RN)1054 ([facility] Hold - Provider: Admin Adt - Reason: Transfer to a Procedural area)1116 ([facility] Unhold - Provider: Admin Adt)1155 ([facility] Hold - Provider: Admin Adt - Reason: Transfer to a Procedural area)1217 ([facility] Unhold - Provider: Admin Adt)2121 (Given - Provider: Jordon Cat RN) 0831 (Given - Provider: Amadeo Espinosa RN)212 (Given - Provider: Mally Malcolm, MORIAH) 0913 (Given - Provider: Holly Alexandre, RN) dofetilide (TIKOSYN) capsule 250 mcg (CANCELED) 250 mcg, Oral, 2 TIMES DAILY, First dose on Fri07/31/18 at 1100, Until Discontinued, Routine, Please indicate the name of the EP Attending who authorized the use of Dofetilide: First Dose Allowed - Awaiting authorizing provider approval 1041 (Given - Provider: Amadeo Espinosa RN)212 (Given - Provider: Mally Malcolm, MORIAH) 0907 (Hold - Provider: Holly Alexandre, RN - Reason: Per MD Order - Comment: Per [employer]) dofetilide (TIKOSYN) capsule 500 mcg (CANCELED) 500 mcg, Oral, EVERY 12 HOURS SCHEDULED (2 times per day), First dose on Fri07/29/18 at 2100, Until Discontinued, Indication for dofetilide: persistent afib Baseline: Lead= I QTc= 450 QTc measurement via monitor ECG prior to first dose and 2 to 3 hours after each of the first 5 doses. Document in comments section of MAR associated with dose. If QTc increased by greater than 25% over baseline or greater than 550 milliseconds after FIRST dose, notify MD for possible dose adjustment. Continuous ECG monitoring for minimum of 3 days after initiation of dofetilide or 12 hours after conversion to sinus rhythm, whichever is longer If QTc greater than 550 milliseconds any time after SECOND dose, discontinue dofetilide and notify MD. No concomitant use of cimetidine, trimethoprim (alone or in combination with sulfamethoxazole), ketoconazole, prochlorperazine, megestrol, verapamil, itraconazole, hydrochlorothiazide, vardenafil, fluvoxamine, fluoxetine other antiarrhythmic drugs, or drugs that prolong QT. Presence of metformin, macrolide antibiotics, azole anti fungal agents, protease inhibitors, amiodarone, diltazem, grapefruit juice, nefazodone, norfloxacin, quinine, zafrilukast (inhibitors of cytochrome [id number]) may increase dofetilide levels; consider decreasing the dose by 50%. Not or ( Category C) Potassium level greater than or equal 3.5 mg/dL, Magnesium greater than or equal 0.65 mmol/L, Creatinine clearance greater than or equal 20 mL/minute Baseline QTc less than or equal 480 milliseconds (500 milliseconds in patients with conduction delay), Routine, Please indicate the name of the EP Attending who authorized the use of Dofetilide: Approved by GAGE Joshi 0810 (Given - Provider: Amadeo Espinosa RN)1054 (JAN Hold - Provider: Admin Adt - Reason: Transfer to a Procedural area)1116 (JAN Unhold - Provider: Admin Adt)1155 (JAN Hold - Provider: Admin Adt - Reason: Transfer to a Procedural area)1217 (MAR Unhold - Provider: Admin Adt)2122 (Given - Provider: Jordon Cat RN - Comment: QTc- 0.46) 0900 (Not Given - Provider: Amadeo Espinosa RN - Reason: Per MD Order) magnesium oxide (MAG-OX) tablet 400 mg 400 mg, Oral, DAILY, First dose on 08/01/18 at 1200, Until Discontinued, Routine 1224 (Given - Provider: Holly Alexandre, RN) metoprolol tartrate (LOPRESSOR) tablet 25 mg 25 mg, Oral, EVERY 6 HOURS SCHEDULED, First dose on 07/26/18 at 1300, Until Discontinued, Routine 0607 (Given - Provider: Diane Duran RN)1054 (JAN Hold - Provider: Admin Adt - Reason: Transfer to a Procedural area)1116 (JAN Unhold - Provider: Admin Adt)1155 (JAN Hold - Provider: Admin Adt - Reason: Transfer to a Procedural area)1200 ([facility] Held - Provider: Admin Adt)1217 ([facility] Unhold - Provider: Admin Adt)1801 (Given - Provider: Amadeo Espinosa RN) 0015 (Given - Provider: Jordon Cat RN)0639 (Given - Provider: Jordon Cat RN)1205 (Given - Provider: Amadeo Espinosa RN)1724 (Given - Provider: Amadeo Espinosa RN) 0016 (Given - Provider: Mally Malcolm, MORIAH)0532 (Given - Provider: Mally Malcolm, MORIAH)1224 (Given - Provider: Holly Alexandre, MORIAH - Comment: ok per GAGE Sharp) rivaroxaban (XARELTO) tablet 20 mg 20 mg, Oral, DAILY WITH DINNER, First dose on 07/27/18 at 1700, Until Discontinued, Must be administered with food., Routine, Restricted anticoagulant, choose the most appropriate response: Approved indication of non-valvular atrial fibrillation 1054 ([facility] Hold - Provider: Admin Adt - Reason: Transfer to a Procedural area)1116 ([facility] Unhold - Provider: Admin Adt)1155 ([facility] Hold - Provider: Admin Adt - Reason: Transfer to a Procedural area)1217 ([facility] Unhold - Provider: Admin Adt)1654 (Given - Provider: Amadeo Espinosa RN) 1723 (Given - Provider: Amadeo Espinosa, MORIAH) rosuvastatin (CRESTOR) tablet 10 mg 10 mg, Oral, EVERY EVENING, First dose (after last modification) on 07/26/18 at 1700, Until Discontinued, Routine 1054 (JAN Hold - Provider: Admin Adt - Reason: Transfer to a Procedural area)1116 ([facility] Unhold - Provider: Admin Adt)1155 ([facility] Hold - Provider: Admin Adt - Reason: Transfer to a Procedural area)1217 ([facility] Unhold - Provider: Admin Adt)1654 (Given - Provider: Amadeo Espinosa, RN) 1723 (Given - Provider: Amadeo Espinosa, RN) timolol (TIMOPTIC) 0.5 % ophthalmic solution 1 drop(Linked Group 1) 1 drop, Both Eyes, 2 TIMES DAILY, First dose on 07/26/18 at 2100, Until Discontinued, Routine 0810 (Given - Provider: Amadeo Espinosa RN)1054 (JAN Hold - Provider: Admin Adt - Reason: Transfer to a Procedural area)1116 ([facility] Unhold - Provider: Admin Adt)1155 ([facility] Hold - Provider: Admin Adt - Reason: Transfer to a Procedural area)1217 ([facility] Unhold - Provider: Admin Adt)2121 (Given - Provider: Jordon Cat, MORIAH) 0831 (Given - Provider: Amadeo Espinosa RN)2121 (Given - Provider: Mally Malcolm, MORIAH) 0909 (Given - Provider: Holly Alexandre, RN) Continuous Medication Order 07/30/2018 07/31/2018 08/01/2018 sodium chloride 0.9% infusion (CANCELED) 100 mL/hr, Intravenous, CONTINUOUS, Starting on 07/29/18 at 1115, Until Tash 07/30/18 at 1651, Please give 1 L total 1007 (New Bag - Provider: Amadeo Espinosa RN)1054 ([facility] Hold - Provider: Admin Adt - Reason: Transfer to a Procedural area)1116 ([facility] Unhold - Provider: Admin Adt)1149 (Stopped - Provider: Amadeo Espinosa, RN)1154 (New Bag - Provider: Lalo Forrester CRNA)1155 ([facility] Hold - Provider: Admin Adt - Reason: Transfer to a Procedural area)1217 ([facility] Unhold - Provider: Admin Adt) PRN Medication Order 07/30/2018 07/31/2018 08/01/2018 acetaminophen (TYLENOL) tablet 650 mg 650 mg, Oral, EVERY 4 HOURS PRN, Starting on 07/26/18 at 1242, Until 9/1/18 at 1705, Pain, Headaches, Maximum dose of acetaminophen is 4000 mg from all sources in 24 hours., Routine 1054 ([facility] Hold - Provider: Admin Adt - Reason: Transfer to a Procedural area)1116 ([facility] Unhold - Provider: Admin Adt)1155 ([facility] Hold - Provider: Admin Adt - Reason: Transfer to a Procedural area)1217 ([facility] Unhold - Provider: Admin Adt) nitroGLYcerin (NITROSTAT) SL tablet 0.4 mg 0.4 mg, Sublingual, EVERY 5 MIN PRN, Starting on 07/26/18 at 1242, Until 08/01/18 at 1705, Chest pain, May repeat every 5 minutes for a total of three doses. Notify provider if chest pain not relieved with nitroglycerin. Do not administer nitroglycerin if the patient has received or taken phosphodiesterase (PDE-5) inhibitors such as sildenafil, tadalafil or vardenafil within the last 24 to 72 hours., Routine 1054 ([facility] Hold - Provider: Admin Adt - Reason: Transfer to a Procedural area)1116 ([facility] Unhold - Provider: Admin Adt)1155 ([facility] Hold - Provider: Admin Adt - Reason: Transfer to a Procedural area)1217 ([facility] Unhold - Provider: Admin Adt) Linked Groups Order Group 1: brimonidine (ALPHAGAN) 0.2 % ophthalmic solution 1 dropJump to med 1 drop, Both Eyes, 2 TIMES DAILY, First dose on 07/26/18 at 2100, Until Discontinued, Routine And timolol (TIMOPTIC) 0.5 % ophthalmic solution 1 dropJump to med 1 drop, Both Eyes, 2 TIMES DAILY, First dose on 07/26/18 at 2100, Until Discontinued, Routine documented in this encounter Care Teams Documentation Nurse Relationship Specialty Start Date End Date Agata Barrera DO [facility] [place] [address] PCP - General Family Medicine 07/01/18 documented as of this encounter
--- OUTSIDE RECORDS SUMMARY | 2024-07-21 19:30 | XMS_ITS | Encounter Summary ---
Author Organization [facility] [place] [address] Care Team Providers Care Regulator Tester Name Role Phone Agata Barrera DO Primary Care Provider [phone] Reason for Visit * Auth/Cert Specialty Diagnoses / Procedures Referred By Contac t Referred To Contact Diagnoses Chest pain ANGINA ?CAD Procedures CARDIAC CATHETERIZATION URG IPI Referral ID Status Reason Start Date Expiration Date Visits Re quested Visits Authorized [id number] 1 1 Encounter Details Date Type Department Care Team (Latest Contact Info) Description 07/26/2018 11:01 AM EDT - 08/01/2018 3:05 PM EDT Hospital Encounter Intermediate [place] [address] Cameron Mahmood MD [facility] [place] [address] Ant Suarez MD [facility] [place] [address] Chest pain, unspecified type; Persistent atrial fibrillation Discharge Disposition: Home Social [...] Sign Reading Time Taken Comments Blood Pressure 144/88 08/01/2018 12:25 PM EDT Pulse 56 08/01/2018 12:25 PM EDT Temperature 36.5 ??C (97.7 ??F) 08/01/2018 12:25 PM E DT Respiratory Rate 18 08/01/2018 12:25 PM EDT Oxygen Saturation 100% 08/01/2018 12:25 PM EDT Inhaled Oxygen Concentration - - Weight 97 kg (213 lb 13.5 oz) 08/01/2018 5:43 AM EDT Height 188 cm (6' 2) 07/26/2018 11:00 AM EDT Body Mass Index 27.46 07/26/2018 11:00 AM EDT documented in this encounter Discharge Summaries * Doris Sharp PA - 07/26/2018 3:05 PM EDT Discharge Summary Patient Name: Agata Flores Patient Age: 72 y.o. Language: Korean Race: White Ethnicity: Not nor Admit date: [...] [facility] can be reached at [phone] Discharge Diagnoses (Hospital Problems) and Secondary Diagnoses [...] x2, distal LCx x2, ramus x1 at [facility]), HTN, HLD, persistent a-fib (diagnosed 6 weeks ago, s/p DCCV 3 weeks ago, on xarelto), and brain abscess (s/p surgery and abx treatment in 2014) who presented to [facility] with progressive dyspnea and lightheadedness on exertion, [...] presumed to be in sinus rhythm. His electrical instrument maker, Dr. Ma, had also scheduled him for an outpatient nuclear stress test to be done in the coming weeks. On Friday, 07/24, he had an episode of chest pressure, occurring with his shortness of breath and lightheadedness on exertion. It was relieved with rest. He went to [facility] ED and was in a-fib with HR 80. Troponins were negative, EKG was without concerning findings. He was admitted to await transfer to [facility] for cardiac catheterization, given his history of ASCVD. He had one additional episode of chest pressure on exertion while at [facility], when he had gotten up to walk [...] past. He was started on aspirin at [facility] without side effects. Hospital Course: Chest pressure, with h/o ASCVD The patient ruled out for NSTEMI with negative troponin x3, however symptoms were concerning for his anginal equivalent. ECG showed no acute ST changed. Echo showed EF 61% without wall motion abnormalities. Given the patient???s risk factors and presentation, it was decided to proceed with coronaryangiography. 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 Access was via the right radial artery, the site was clean, dry, and intact on day of discharge. He was discharged on aspirin 81mg daily, metoprolol, statin, and SL nitro prn. ?? Persistent a-fib, rate controlled The patient was in controlled a-fib, HR in 80s, on admission. His [id number] score is 3 (age, HTN,CAD). Rivaroxaban had [...] appointments: During 8am-5pm Friday through Friday call [phone] to speak with a nurse in the cardiology clinic All other times call [phone] and ask to speak to the catalogue maker senior national account manager. Return to work: as needed Driving: as needed Follow up Appointments: PCP Agata Barrera DO [phone] to see you in a week. Please [...] appointments: During 8am-5pm Friday through Friday call [phone] to speak with a nurse in the cardiology clinic All other times call [phone] and ask to speak to the catalogue maker senior national account manager. Return to work: as needed Driving: as needed Follow up Appointments: PCP Agata Barrera DO [phone] to see you in a week. Please [...] of this encounter Progress Notes * Holly Alexandre, RN - 08/01/2018 2:24 PM EDT Pt A+O. No complaints of pain, SOB or dizziness. Pt ambulating without issues. SR SB on tele rates 50-70, occ pvcs, freq pacs- GAGE Sharp aware. tikosyn dose held this AM and [...] Progress Note Patient Name: Agata Flores Service: INJECTION MOLD TECHNICIAN / PA Responsible Attending: Ant Suarez MD Reason for continued hospitalization: A-fib management, Dofetilide load, s/p cardioversion to NSR Telemetry monitoring EP to see patient prior to continuing Dofetilide Active Problems: Active Hospital Problems Diagnosis ??? ASCVD (arteriosclerotic cardiovascular disease) PCI in 2005 at [facility]: stents to LAD x2, LCx [...] Intake/Output Summary (Last 24 hours) at 08/01/18 09 Last data filed at 08/01/18 0822 Gross [...] x2, distal LCx x2, ramus x1 at [facility]), HTN, HLD, persistent a-fib (diagnosed 6 weeks ago, s/p DCCV 3weeks ago, on xarelto), and brain abscess (s/p surgery and abx treatment in 2014) who presented to [facility] with progressive dyspnea and lightheadedness on exertion, [...] 80-100s since admission, currently in A. fib [id number] Score: 3 (age, HTN, CAD) Continue metoprolol [...] MD Kelly H. LaFlamme, PA 08/01/2018 Pager [phone] 08/01/2018 I have seen the patient and [...] for Nutrition Intervention: Diet Order Diet Order: [facility], [facility] Appetite: Good Food allergies: NKFA Chewing/Swallowing [...] Assessment: Patient seen regarding Nutrition Education - [address] diet. Patient reported a good appetite without [...] 1:56 PM EDT CM verified with pharmacy [facility] [employer]. It does not require prior authorization and the copay is 5 dollars. Corazon Allen RN CM Pager [phone] * Josh Muir, PA - 07/31/2018 10:45 AM EDT Cardiac Electrophysiology Progress Note Attending: Fred Maki MD Problem List: Patient Active Problem List Diagnosis ??? ','ASCVD (arteriosclerotic cardiovascular disease) Overview Note: PCI in 2005 at [facility]: stents to LAD x2, LCx [...] x2, distal LCx x2, ramus x1 at [facility]), HTN and HLD. His cardiac enzymes remained negative and his EKGs were not suggestive of ischemia. He was transferred to [facility] for cardiac catheterization which revealed non-obstructive CAD. [...] of patient and formulation of plan Pager: [phone] Associated attestation - Fred Maki MD - 07/31/2018 3:24 PM EDT Patient seen and examined. Pertinent data (jani. ECGs) reviewed. Plan agreed with. Fred Maki MD, PhD, [facility] Cardiac Electrophysiology 07/31/2018 3:24 PM * Ant Suarez MD - 07/31/2018 10:35 AM EDT Images from the original note were not included. Inpatient Cardiology Progress Note Patient Name: Agata Flores Service: INJECTION MOLD TECHNICIAN / PA Responsible Attending: Ant Suarez MD Reason for continued hospitalization: A-fib management, Dofetilide load, s/p cardioversion to NSR Active Problems: Active Hospital Problems Diagnosis ??? ASCVD (arteriosclerotic cardiovascular disease) PCI in 2005 at [facility]: stents to LAD x2, LCx [...] and vitals reviewed. Lab Comments: Recent Labs 07/31/1863207/30/1840507/29/18 0517 WBC 14.3* 17.2* 15.6* HGB 15.8 15.0 15.7 HCT 45.2 43.5 45.2 PLATELET 183 197 208 Recent Labs 07/26/18 1144 INR 1.2 Recent Labs 07/31/1863207/30/18 0406 07/29/18 0517 NA 140 138 139 [...] x2, distal LCx x2, ramus x1 at [facility]), HTN, HLD, persistent a-fib (diagnosed 6 weeks ago, s/p DCCV 3weeks ago, on xarelto), and brain abscess (s/p surgery and abx treatment in 2014) who presented to [facility] with progressive dyspnea and lightheadedness on exertion, [...] 80-100s since admission, currently in A. fib [id number] Score: 3 (age, HTN, CAD) Continue metoprolol [...] MD Kelly H. LaFlamme, PA 07/31/2018 Pager [phone] 07/31/2018 I have seen the patient and [...] (NENO/CT/pre-op PPI etc) Fred Maki MD, PhD, [facility] Cardiac Electrophysiology * Corazon Allen RN - 07/30/2018 11:07 AM EDT CM continues to monitor for post hospital needs. Potential DC Friday. Pt started on Tikosyn po (consider possible preauth for medication). No home care needs identified. Corazon Allen RN Pager [phone] * Elena Hooks APRN - 07/30/2018 9:01 AM EDT Inpatient Cardiology Progress Note Patient Name: Agata Flores Service: INJECTION MOLD TECHNICIAN / PA Responsible Attending: Cameron Mahmood MD Reason for continued hospitalization: A-fib management Syncope Dofetilide load, cardioversion Active Problems: Active Hospital Problems Diagnosis ??? ASCVD (arteriosclerotic cardiovascular disease) PCI in 2005 at [facility]: stents to LAD x2, LCx [...] x2, distal LCx x2, ramus x1 at [facility]), HTN, HLD, persistent a-fib (diagnosed 6 weeks ago, s/p DCCV 3weeks ago, on xarelto), and brain abscess (s/p surgery and abx treatment in 2014) who presented to [facility] with progressive dyspnea and lightheadedness on exertion, [...] 80-100s since admission, currently in A. fib [id number] Score: 3 (age, HTN, CAD) Continue metoprolol [...] Arrived from or per bed accompanied by yard caller. Phase I in progress. Patient has dry cough. States tickle in thrOAT. Denies shortness of breath or chest pain. * Elena Hooks, CONCRETE PRECAST MOULDER - 07/29/2018 11:49 AM EDT Inpatient Cardiology Progress Note Patient Name: Agata Flores Service: INJECTION MOLD TECHNICIAN / PA Responsible Attending: Cameron Mahmood MD Reason for continued hospitalization: Evaluation and management of chest pain S/p cardiac catheterization, non-obstructive disease EP consult for a-fib management Syncope Active Problems: Active Hospital Problems Diagnosis ??? ASCVD (arteriosclerotic cardiovascular disease) PCI in 2005 at [facility]: stents to LAD x2, LCx [...] x2, distal LCx x2, ramus x1 at [facility]), HTN, HLD, persistent a-fib (diagnosed 6 weeks ago, s/p DCCV 3weeks ago, on xarelto), and brain abscess (s/p surgery and abx treatment in 2014) who presented to [facility] with progressive dyspnea and lightheadedness on exertion, [...] controlled HR controlled in 80-100s since admission [id number] Score: 3 (age, HTN, CAD) Continue metoprolol [...] with pt in more detail short and senior living risk of afib ablation and drug therapy [...] clear dofetilide initiation Fred Maki MD, PhD, [facility] Cardiac Electrophysiology * Stephanie Mcgraw RN - 07/28/2018 10:43 AM EDT 0845 :Mr Florse was finishing his shower , sitting on the toilet . He stated That he began to feel dizzy , put his call light on and notified the EDITOR SOUND that he was feeling dizzy.I ran to the Room For [facility], to find him on the floor, his head Pressed up against the door . I initially He did not respond only moaning , .within moments he was responding well and answering in full sentences . Code Kamran wascalcarey , pt was placed in neck immobilizer and returned to bed . Life safety assessed for neck/spine Fracture and Mr Flores was sent down for a stat CT of the head and neck * Elena Hooks APRN - 07/28/2018 9:50 AM EDT Inpatient Cardiology Progress Note Patient Name: Agata Flores Service: INJECTION MOLD TECHNICIAN / PA Responsible Attending: Cameron Mahmood MD Reason for continued hospitalization: Evaluation and management of chest pain S/p cardiac catheterization, non-obstructive disease EP consult for a-fib management Syncope Active Problems: Active Hospital Problems Diagnosis ??? ASCVD (arteriosclerotic cardiovascular disease) PCI in 2005 at [facility]: stents to LAD x2, LCx [...] sitting position on the toilet by a chief nursing officer. When the chief nursing officer went to find other staff to help [...] his reports. He was evaluated by this technical proposal writer along with Dr. Mahmood once he [...] x2, distal LCx x2, ramus x1 at [facility]), HTN, HLD, persistent a-fib (diagnosed 6 weeks ago, s/p DCCV 3weeks ago, on xarelto), and brain abscess (s/p surgery and abx treatment in 2015) who presented to [facility] with progressive dyspnea and lightheadedness on exertion, [...] controlled HR controlled in 80-100s since admission [id number] Score: 4 (age, HTN, CAD) Continue metoprolol [...] APRN and guided the medical decision-making. * Deonna Rasheed APRN - 07/27/2018 1:28 PM EDT Inpatient Cardiology Progress Note Patient Name: Agata Flores Service: INJECTION MOLD TECHNICIAN / PA Responsible Attending: Cameron Mahmood MD Reason for continued hospitalization: Evaluation and management of chest pain S/p cardiac catheterization, non-obstructive disease EP consult for a-fib management Active Problems: Active Hospital Problems Diagnosis ??? ASCVD (arteriosclerotic cardiovascular disease) PCI in 2005 at [facility]: stents to LAD x2, LCx [...] x2, distal LCx x2, ramus x1 at [facility]), HTN, HLD, persistent a-fib (diagnosed 6 weeks ago, s/p DCCV 3weeks ago, on xarelto), and brain abscess (s/p surgery and abx treatment in 2014) who presented to [facility] with progressive dyspnea and lightheadedness on exertion, [...] Persistent a-fib, rate controlled HR controlled in [id number] since admission [id number] Score: 4 (age, HTN, CAD) Continue metoprolol, [...] with Cameron Mahmood MD. Deonna Rasheed, MSN, [employer]-, JOSE 07/27/2018 Pager [phone] Associated attestation - Cameron Mahmood MD - 07/27/2018 3:58 PM EDT Cardiology Attending Addendum I shared this visit with Deonna Rasheed APRN, and guided the medical decision-making. * Min Jeffery II - 07/27/2018 11:33 AM EDT Agata Flores July 27, 2018 [id number] [employer] - Preliminary Findings Procedures: coronary angiography left [...] be: 4 (see definitions below). Definitions from [employer] Aging Clinical Frailty [...] with all outside activities and with minor lead android developer. May need help with bathing and dressing. [...] otherwise frail Darion Machado M.D. (Fellow) Min Jefefry M.D. * Kalyan Lion RN - 07/27/2018 [...] this encounter H&P Notes * Deonna Rasheed, CONCRETE PRECAST MOULDER - 07/26/2018 11:05 AM EDT Cardiology Admission H&P Patient Name: Agata Flores Date of : 1945 Age: 72 y.o. Hospital Admit Date: 07/26/2018 Inpatient Attending: Cameron Mahmood MD PCP: Agata Barrera, Presenting Diagnosis/Chief Complaint: Chest pressure Active Problem List: Active Hospital Problems Diagnosis ??? ASCVD (arteriosclerotic cardiovascular disease) PCI in 2005 at [facility]: stents to LAD x2, LCx [...] x2, distal LCx x2, ramus x1 at [facility]), HTN, HLD, persistent a-fib (diagnosed 6 weeks ago, s/p DCCV 3 weeks ago, on xarelto), and brain abscess (s/p surgery and abx treatment in 2014) who presented to [facility] with progressive dyspnea and lightheadedness on exertion, [...] presumed to be in sinus rhythm. His electrical instrument maker, Dr. Ma, had also scheduled him for an outpatient nuclear stress test to be done in the coming weeks. On Friday, 07/24, he had an episode of chest pressure, occurring with his shortness of breath and lightheadedness on exertion. It was relieved with rest. He went to [facility] ED and was in a-fib with HR 80. Troponins were negative, EKG was without concerning findings. He was admitted to await transfer to [facility] for c ardiac catheterization, given his history of ASCVD. He had one additional episode of chest pressureon exertion while at [facility], when he had gotten up to walk [...] past. He was started on aspirin at [facility] without side effects. Past Medical History: Past Medical History: Diagnosis Date ??? A-fib ??? Brain abscess ??? CAD (coronary artery disease) ??? HLD (hyperlipidemia) ??? HTN (hypertension) Surgical History/Problems: Past Surgical History: Procedure Laterality Date ??? PRO STEREO BX/ASPIR/EXCIS, INTRACRANIAL LESN Right 01/27/2015 @STEREOTACTIC BX,ASP, OR EXC.-INTRACRANIAL LESION, W/SCAN performed by Jose Small MD at [facility] MAIN OR ??? PRO STEREOTACTIC CPTR ASSTD PX CRANIAL, INTRADURAL Right 01/27/2015 STEREOTACTIC COMPUTER-ASSTD NAVIGATIONAL CRANIAL INTRADURAL performed by Jose Small MD at 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: Review of Systems [...] LAD x2, distalLCx x2, ramus x1 at [facility]), HTN, HLD, persistent a-fib (diagnosed 6 weeks ago, s/p DCCV 3 weeks ago, on xarelto), and brain abscess (s/p surgery and abx treatment in 2014) who presented to [facility] with progressive dyspnea and lightheadedness on exertion, [...] 2018 showed EF 60-65%, no WMAs, per [facility] notes) Plan for cardiac catheterization tomorrow No plavix or heparin at this time Continue aspirin, metoprolol, statin, SL nitro prn Persistent a-fib, rate controlled HR controlled in 80s since admission [id number] Score: 4 (age, HTN, CAD) Continue metoprolol [...] with Cameron Mahmood MD. Deonna Rasheed, MSN, [facility]-, CONCRETE PRECAST MOULDER 07/26/2018 Pager [phone] Associated attestation - Cameron Mahmood MD - [...] (arteriosclerotic cardiovascular disease) PCI in 2005 at [facility]: stents to LAD x2, LCx [...] Handling Outcome: Ongoing (Interventions Implemented as Appropriate) 07/31/18 2100 Activity Activity Type activity adjusted per tolerance [...] Control Outcome: Ongoing (Interventions Implemented as Appropriate) 07/31/18 2100 Safety Interventions Isolation Precautions standard precautions [...] CPG). Outcome: Ongoing (Interventions Implemented as Appropriate) 07/31/18 2100 Arrhythmia/Dysrhythmia (Symptomatic) Problems Assessed (Arrhythmia/Dysrhythmia) all Problems Present (Arrhythmia/Dysrhythmia) none * Plan of Care - Amadeo Espinosa, RN - 07/31/2018 3:33 PM EDT Problem: [...] get scripts to family to bring to [facility] pharm to ensure receipt prior to close [...] EVALUATION: * Plan of Care - Amadeo Espionsa RN - 07/29/2018 4:25 PM EDT Problem: [...] 2 story home with his . [address]. Has rails. His daughter lives across the street Social & Family Supports/Community Resources: Supportive family Behavioral Health History: denied Substance Use/Abuse: Denied Other Pertinent/Service Specific Information: None 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: MEDICARE Secondary Insurance: [employer] [place] Prescription Coverage: yes Preferred Pharmacy: See demographics Other: n/a Primary Care Provider: Agata Barrera DO [phone] Patient/Caregiver Goals of Treatment: To figure out [...] abx treatment in 2015) who presented to [employer] with dyspnea, lightheadedness and chest pressure. ??Plan is for NENO tomorrow. Pt is independent with no home care needs identified. Plan: DC home/ Self care A member of the Care Management team will continue to monitor progress, follow for continuity of care and assist with transition of care planning. Corazon Allen, RN Pager: [phone] * Consult Note - Danuta Kerr RN - 07/28/2018 9:47 AM EDT [facility] RESPONSE TEAM NOTE Name: Agata Flores Age: 72 y.o. Sex; Male Date of : 1945 Responding Members: Patt Kerr RN, Carmen Goetz RCP, Karen Martin RCP, Cindy LAY Date/Time of Admission: 07/26/2018 11:01 AM Unit/Room: [facility] Service: Cardiology Time Activated: 0831 Time Arrived: 0834 Time at bedside: 60 minutes Indication for Consult: LOC ASSESSMENT/INTERVENTION Brief 24 hr history: Cary Andrew page received at 0831. On arrival to room, Mr. Flores found supine onbathroom floor, wedged against wall. He was awake, in care of several 4E RN's and EDITOR SOUND. No compressions had been administered. He had regular respirations, palp radial, appropriate verbal responses. Skin cool, pale quality, wet (from shower vs diaphoresis). Unprotected fall from toilet confirmed by patient and EDITOR SOUND; CTLS precautions initiated. Per patient report, he had become dizzy at end of hisshower, had seated self on toilet and pulled cord in bathroom for assist. EDITOR SOUND responded, left to obtain additional assist and on return found Mr. Flores on bathroom floor. Concern for initial status pr ompted Code Blue activation. Per report, likely full LOC as patient stated I sat on the toilet andthe next I knew I was on the floor. LOC described as brief, self resolving. playground monitor had been disconnected for Mr. Flores to [...] PLAN Pertinent report given to 4E Resource Elena MAJOR, at 0930. Head CT and c-spine evaluation pending. (C-collar remained on). Mr. Flores remains on 4E at present. LSRN will continue to follow today. 9:47 AM, July 28, 2018 DANUTA KERR, MORIAH, * Consult Note - Miguel De Los [...] x2, distal LCx x2, ramus x1 at [facility]), HTN and HLD. His cardiac enzymes remained negative and his EKGs were not suggestive of ischemia. He was transferred to [facility] for cardiac catheterization which revealed non-obstructive CAD. [...] Pertinent Medications: Current Facility-Administered Medications Ordered in [facility] Medication Dose Route Frequency Provider Last Rate Last Dose ??? sodium chloride 0.9% infusion 100 mL/hr Intravenous Continuous Darion Machado MD 100 mL/hr at 07/27/18 1142 100 mL/hr at 07/27/18 1142 ??? rivaroxaban (XARELTO) tablet 20 mg 20 mg Oral Daily with dinner Kathya, Deonna T, CONCRETE PRECAST MOULDER ??? metoprolol tartrate (LOPRESSOR) tablet 25 mg 25 mg Oral Q6H POPPY Kathya, Deonna T, CONCRETE PRECAST MOULDER 25 mg at 07/27/18 0612 ??? aspirin EC tablet 81 mg 81 mg Oral Daily Kathya, Deonna T, CONCRETE PRECAST MOULDER 81 mg at 07/27/18 0811 ??? nitroGLYcerin (NITROSTAT) SL tablet 0.4 mg 0.4 mg Sublingual Q5 Min PRN Kathya, Deonna T, CONCRETE PRECAST MOULDER ??? acetaminophen (TYLENOL) tablet 650 mg 650 mg Oral Q4H PRN Kathya, Deonna T, CONCRETE PRECAST MOULDER ??? brimonidine (ALPHAGAN) 0.2 % ophthalmic solution 1 drop 1 drop Both Eyes BID Kathya, Deonna T,CONCRETE PRECAST MOULDER 1 drop at 07/27/18 0811 And ??? timolol (TIMOPTIC) 0.5 % ophthalmic solution 1 drop 1 drop Both Eyes BID Kathya, Deonna T, CONCRETE PRECAST MOULDER 1 drop at 07/27/18 0811 ??? rosuvastatin (CRESTOR) tablet 10 mg 10 mg Oral QPM Kathya, Deonna T, CONCRETE PRECAST MOULDER 10 mg at 07/26/18 1636 No current [facility]-ordered outpatient prescriptions on file. 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 Physical Exam: Vital signs: Last value [...] 12 lead EK07/27/2018 Atrial fibrillation @ 75; ND 166; QRs 76; QTc 426ms Assessment: Agata [...] to follow patient. Provider: GAGE Aldridge Provider#: [id number] Consult attending physician: Alvaro Maki MD EP Consult positional pager #[phone]([facility]) EP Device interrogation positional pager # [phone] Associated attestation - Fred Maki MD - 07/27/2018 8:08 PM EDT Cardiac Electrophysiology Attending Addendum: The patient was seen, interviewed and examined by me. Pertinent data and results reviewed. Miguel ALMONTE's note above was reviewed by me and agreed with. Specifically, the pertinent diagnoses andrecommendations were discussed with me. Fred Maki MD, PhD, [facility] Cardiac Electrophysiology * Plan of Care - [...] further details. Deonna Rasheed APRN 07/26/2018 Pager [phone] documented in this encounter Plan of Treatment Upcoming Encounters Date Type Department Care Team (Late st Contact Info) Description 09/08/2024 9:40 AM EDT Office Visit Cardiology at [address] [phone] Gonzales Torres MD [facility] [place] [address] Pending Results Name Type Priority Associated Diagnoses [...] 3:46 AM EDT DIFFERENTIAL, AUTOMATED Routine 07/27/20 3:46 AM EDT CBC (WITH DIFF) Routine 07/27/2018 3:46 AM EDT MAGNESIUM Routine 07/27/2018 3:46 AM EDT CARDIAC ENZYMES ([facility]) STAT 07/26/2018 10:30 PM EDT CARDIAC ENZYMES ([facility]) STAT 07/26/2018 4:31 PM EDT SCAN, PERIPHERAL BLOOD STAT 8 11:44 AM EDT HEMOGRAM STAT 07/26/2018 11:44 AM EDT DIFFERENTIAL, AUTOMATED STAT 07/26/20 18 11:44 AM EDT CARDIAC ENZYMES ([facility]) STAT 07/26/2018 11:44 AM EDT APTT STAT [...] 11:14 AM EDT Chest pain, unspecified type BANK PRESIDENT SCAN 07/26/2018 12:00 AM EDT documented in this encounter Results * EKG 12 Lead (08/01/2018 11:02 AM EDT) Pathologist [facility] Ventricular rate 52 BPM MUSE SYSTEM Atrial Rate 53 BPM MUSE SYSTEM QRS Duration 76 ms MUSE SYSTEM Q-T Interval 482 ms MUSE SYSTEM QTC Calculated (Bezet) 448 ms MUSE SYSTEM Calculated P Chloe 62 degrees MUSE SYSTEM Calculated R Chloe 24 degrees MUSE SYSTEM Calculated T Chloe 121 degrees MUSE SYSTEM INTERPRETATION Sinus bradycardia Low voltage QRS Abnormal QRS-T angle, consider primary T wave abnormality Abnormal ECG When compared with ECG of 01-AUG-2018 00:00, (unconfirmed) Nonspecific T wave abnormality, improved in Anterior leads QT has shortened Confirmed by MD ANGELIA, JAYA ([id number]) on 08/01/2018 1:20:59 PM MUSE SYSTEM 08/01/2018 11:0 2 AM EDT 08/01/2018 1:20 PM EDT Ant Suarez MD ECG ORDERABLES MUSE SYSTEM * (ABNORMAL) Differential, Automated (08/01/2018 3:35 AM EDT) Neutrophil % 38.8 % [facility] Neutrophil Absolute 5.48 1.70 - 6.10 x10(3)/[facility] Lymph % 15.9 % [facility] Lymphocytes Abs 2.2 0.9 - 3.2 x10(3)/[facility] Monocyte % 7.1 % [facility] Monocyte Abs 1.0(H) 0.3 - 0.9 x10(3)/[facility] Eos % 37.5 % [facility] Eosinophils Abs 5.3(H) 0.0 - 0.4 x10(3)/[facility] Basophil % 0.5 % [facility] Baso Absolute 0.1 0.0 - 0.1 x10(3)/[facility]ORY Immature Gran % 0.20 % [facility] Comment: Immature granulocytes(IG's)percentage and absolute count will include metamyelocytes, myelocytes, and promyelocytes. Blood smears from CBCs yielding IG's will be scanned manually for concordance. If this scan disagrees with the automated IG or if promyelocytes are noted, a manual differential will be performed. Immature Gran Absolute 0.03 0.00 - 0.04 x10(3)/[facility] Blood specimen (specimen) 08/01/2018 3:35 AM EDT 08/01/2018 3:56 AM EDT Narrative Resulting Agency Comment Spec In Lab Elena Hooks APRN HEMATOLOGY ORDERABLE S [facility] [place] [address] * (ABNORMAL) Hemogram (08/01/2018 3:35 AM EDT) White Blood Cell 14.1(H) 4.0 - 9.5 x10(3)/[facility] Red Blood Cell 4.27(L) 4.58 - 5.54 x10(6)/[facility] Hemoglobin 13.9 13.7 - 16.5 gm/dL [facility] Hematocrit 38.9(L) 40.5 - 48.5 % [facility] Mean Cell Volume 91.1 82.9 - 93.1 fL [facility] Mean Cell Hemoglobin 32.6(H) 27.5 - 32.1 pg [facility] Mean Cell Hemoglobin Concentration 35.7 32.0 - 35.7 gm/dL [facility] Platelet 198 145 - 357 x10(3)/mc L [facility] RDW Standard Deviation 41.2 36.0 - 45.0 [facility] RDW coefficient of variation 12.6 11.4 - 13.8 % [facility] Mean Platelet Volume 11.3 7.6 - 12.9 [facility] NRBC% auto 0.0 % [facility] NRBC Absolute 0.000 0.000 - 0.000 x10(3)/mc L [facility] Blood specimen (specimen) 08/01/2018 3:35 AM EDT 08/01/2018 3:56 AM EDT Narrative Resulting Agency Comment Spec In Lab Elena Hooks APRN HEMATOLOGY ORDERABLE S [facility] [place] [address] * (ABNORMAL) BMP w/fasting Glucose (08/01/2018 3:35 AM EDT) Glucose Fasting 110(H) 65 - 99 mg/dL [facility] Comment: ?Fasting* Glucose Interpretive Criteria Normal [...] of Diabetes Mellitus, Position Statement from the [place] [employer]. ??Diabetes Care, Volume 33, Supplement 1, Dec 2009 Blood Urea Nitrogen 22(H) 10 - 20 mg/dL [facility] Creatinine 0.79(L) 0.80 - 1.50 mg/dL [facility] Sodium 137 135 - 145 mmol/L [facility] Potassium 4.4 3.5 - 5.0 mmol/L [facility] Comment: Please note: ??Patients with WBC >100,000 may have falsely elevated Potassium levels. ??For accurate Potassium quantification in these patients send serum separator tube (gold top) for subsequent determinations. ??Contact the Clinical Chemistry Laboratory if there are any questions. Chloride 102 98 - 107 mmol/L [facility] Carbon Dioxide 25 22 - 31 mmol/L [facility] Anion Gap 10 5 - 15 mmol/L [facility] Calcium 9.4 8.5 - 10.5 mg/dL [facility] Est Glomerular Filtration Rate 90 >=60 mL/min/1. 73 m?? [facility] Comment: The eGFR was calculated using the CKD-EPI equation. As with all creatinine based estimates of kidney function, eGFR values calculated with the CKD-EPI equation are not accurate in patients with acute kidney failure, extremes of body mass or the acutely ill. [email or web address] eGFR 104 >=60 mL/min/1. 73 m?? [facility] Comment: The eGFR was calculated using the CKD-EPI equation. As with all creatinine based estimates of kidney function, eGFR values calculated with the CKD-EPI equation are not accurate in patients with acute kidney failure, extremes of body mass or the acutely ill. [email or web address] Blood specimen (specimen) 08/01/2018 3:35 AM EDT 08/01/2018 3:56 AM EDT Narrative Resulting Agency Comment Spec In Lab Elena Hooks APRN CHEMISTRY ORDERABLES Performing Organization Address City/[facility]/ZIP Co de Phone Number [facility] [place] [address] * EKG 12 Lead (08/01/2018 12:00 AM EDT) Ventricular rate 58 BPM MUSE SYSTEM Atrial Rate 58 BPM MUSE SYSTEM P-R Interval 158 ms MUSE SYSTEM QRS Duration 82 ms MUSE SYSTEM Q-T Interval 530 ms MUSE SYSTEM QTC Calculated (Bezet) 520 ms MUSE SYSTEM Calculated P Chloe 74 degrees MUSE SYSTEM Calculated R Chloe 45 degrees MUSE SYSTEM Calculated T Chloe 97 degrees MUSE SYSTEM INTERPRETATION Sinus bradycardia with marked sinus arrhythmia Low voltage QRS Nonspecific T wave abnormality Prolonged QT Abnormal ECG When compared with ECG of 31-JUL-2018 14:14, (unconfirmed) Premature atrial complexes are no longer Present Nonspecific T wave abnormality has replaced inverted T waves in Lateral leads QT has lengthened Confirmed by MD Suarez Eric ([id number]) on 08/01/2018 1:32:14 PM MUSE SYSTEM 08/01/2018 12:0 0 AM EDT 08/01/2018 1:32 PM EDT Elena Hooks APRN ECG ORDERABLES Performing Organization Address [facility] Co de Phone Number MUSE SYSTEM * EKG 12 Lead (07/31/2018 2:14 PM EDT) Ventricular rate 56 BPM MUSE SYSTEM Atrial Rate 56 BPM MUSE SYSTEM P-R Interval 162 ms MUSE SYSTEM QRS Duration 76 ms MUSE SYSTEM Q-T Interval 482 ms MUSE SYSTEM QTC Calculated (Bezet) 465 ms MUSE SYSTEM Calculated P Chloe 70 degrees MUSE SYSTEM Calculated R Chloe 17 degrees MUSE SYSTEM Calculated T Chloe 134 degrees MUSE SYSTEM INTERPRETATION Sinus bradycardia [...] PM EDT 08/01/2018 1:31 PM EDT Elena J King JOSE ECG ORDERABLES Performing Organization Address [facility] Phone Number MUSE SYSTEM * EKG 12 Lead (07/31/2018 8:32 AM EDT) Ventricular rate 54 BPM MUSE SYSTEM Atrial Rate 54 BPM MUSE SYSTEM P-R Interval 160 ms MUSE SYSTEM QRS Duration 78 ms MUSE SYSTEM Q-T Interval 498 ms MUSE SYSTEM QTC Calculated (Bezet) 472 ms MUSE SYSTEM Calculated P Chloe 67 degrees MUSE SYSTEM Calculated R Chloe 12 degrees MUSE SYSTEM Calculated T Chloe 128 degrees MUSE SYSTEM INTERPRETATION Sinus bradycardia with marked sinus arrhythmia Low voltage QRS Nonspecific T wave abnormality Prolonged QT Abnormal ECG When compared with ECG of 31-JUL-2018 07:44, No significant change was found Confirmed by Denys Miller MD ([id number]) on 07/31/2018 5:01:20 PM MUSE SYSTEM 07/31/2018 8:32 AM EDT 07/31/2018 5:01 PM EDT Ant Suarez MD ECG ORDERABLES Performing Organization Address [facility] Phone Number MUSE SYSTEM * EKG 12 Lead (07/31/2018 7:44 AM EDT) Ventricular rate 56 BPM MUSE SYSTEM Atrial Rate 56 BPM MUSE SYSTEM P-R Interval 164 ms MUSE SYSTEM QRS Duration 84 ms MUSE SYSTEM Q-T Interval 494 ms MUSE SYSTEM QTC Calculated (Bezet) 476 ms MUSE SYSTEM Calculated P Chloe 71 degrees MUSE SYSTEM Calculated R Chloe 15 degrees MUSE SYSTEM Calculated T Chloe 127 degrees MUSE SYSTEM INTERPRETATION Sinus bradycardia [...] ORDERABLES Performing Organization Address [facility]/ZIP Co de Phone Number MUSE SYSTEM * (ABNORMAL) Differential, Automated (07/31/2018 6:33 AM EDT) Neutrophil % 39.3 % [facility] Neutrophil Absolute 5.61 1.70 - 6.10 x10(3)/[facility] LAB[facility] Lymph % 13.7 % [facility] Lymphocytes Abs 2.0 0.9 - 3.2 x10(3)/[facility] Monocyte % 7.4 % [facility] Monocyte Abs 1.0(H) 0.3 - 0.9 x10(3)/[facility] Eos % 38.8 % [facility] Eosinophils Abs 5.5(H) 0.0 - 0.4 x10(3)/[facility] Basophil % 0.6 % [facility] Baso Absolute 0.1 0.0 - 0.1 x10(3)/[facility] Immature Gran % 0.20 % [facility] Comment: Immature granulocytes(IG's)percentage and absolute count will include metamyelocytes, myelocytes, and promyelocytes. Blood smears from CBCs yielding IG's will be scanned manually for concordance. If this scan disagrees with the automated IG or if promyelocytes are noted, a manual differential will be performed. Immature Gran Absolute 0.03 0.00 - 0.04 x10(3)/[facility] Blood specimen (specimen) 07/31/2018 6:33 AM EDT 07/31/2018 6:52 AM EDT Narrative Resulting Agency Comment Spec In Lab Elena Hooks APRN HEMATOLOGY ORDERABLE S [facility] [place] [address] * (ABNORMAL) Hemogram (07/31/2018 6:33 AM EDT) White Blood Cell 14.3(H) 4.0 - 9.5 x10(3)/[facility] Red Blood Cell 4.92 4.58 - 5.54 x10(6)/[facility] Hemoglobin 15.8 13.7 - 16.5 gm/dL [facility] Hematocrit 45.2 40.5 - 48.5 % [facility] Mean Cell Volume 91.9 82.9 - 93.1 fL [facility] Mean Cell Hemoglobin 32.1 27.5 - 32.1 pg [facility] Mean Cell Hemoglobin Concentration 35.0 32.0 - 35.7 gm/dL [facility] Platelet 183 145 - 357 x10(3)/[facility]ORY RDW Standard Deviation 42.5 36.0 - 45.0 [facility] LABORATORY RDW coefficient of variation 12.6 11.4 - 13.8 % [facility] Mean Platelet Volume 11.0 7.6 - 12.9 [facility]ORY NRBC% auto 0.0 % [facility] NRBC Absolute 0.000 0.000 - 0.000 x10(3)/[facility] Blood specimen (specimen) 07/31/2018 6:33 AM EDT 07/31/2018 6:52 AM EDT Narrative Resulting Agency Comment Spec In Lab Elena Hooks APRN HEMATOLOGY ORDERABLE S [facility] [place] [address] * (ABNORMAL) BMP w/fasting Glucose (07/31/2018 6:33 AM EDT) Glucose Fasting 107(H) 65 - 99 mg/dL [facility] Comment: ?Fasting* Glucose Interpretive Criteria Normal [...] of Diabetes Mellitus, Position Statement from the [place] [employer]. ??Diabetes Care, Volume 33, Supplement 1, Dec 2009 Blood Urea Nitrogen 22(H) 10 - 20 mg/dL [facility] Creatinine 0.75(L) 0.80 - 1.50 mg/dL [facility] Sodium 140 135 - 145 mmol/L [facility] Potassium 4.3 3.5 - 5.0 mmol/L [facility] Comment: Please note: ??Patients with WBC >100,000 may have falsely elevated Potassium levels. ??For accurate Potassium quantification in these patients send serum separator tube (gold top) for subsequent determinations. ??Contact the Clinical Chemistry Laboratory if there are any questions. Chloride 100 98 - 107 mmol/L [facility] Carbon Dioxide 27 22 - 31 mmol/L [facility] Anion Gap 13 5 - 15 mmol/L [facility] Calcium 9.6 8.5 - 10.5 mg/dL [facility] Est Glomerular Filtration Rate 92 >=60 mL/min/1. 73 m?? [facility] Comment: The eGFR was calculated using the CKD-EPI equation. As with all creatinine based estimates of kidney function, eGFR values calculated with the CKD-EPI equation are not accurate in patients with acute kidney failure, extremes of body mass or the acutely ill. [email or web address] eGFR 106 >=60 mL/min/1. 73 m?? [facility] Comment: The eGFR was calculated using the CKD-EPI equation. As with all creatinine based estimates of kidney function, eGFR values calculated with the CKD-EPI equation are not accurate in patients with acute kidney failure, extremes of body mass or the acutely ill. [email or web address] Blood specimen (specimen) 07/31/2018 6:33 AM EDT 07/31/2018 6:52 AM EDT Narrative Resulting Agency Comment Spec In Lab Elena Hooks JOSE CHEMISTRY ORDERABLES Performing Organization Address City/[facility] Co de Phone Number [facility] [place] [address] * EKG 12 Lead (07/31/2018 12:17 AM EDT) Ventricular rate 68 BPM MUSE SYSTEM Atrial Rate 68 BPM MUSE SYSTEM P-R Interval 176 ms MUSE SYSTEM QRS Duration 74 ms MUSE SYSTEM Q-T Interval 490 ms MUSE SYSTEM QTC Calculated (Bezet) 521 ms MUSE SYSTEM Calculated P Chloe 80 degrees MUSE SYSTEM Calculated R Chloe 22 degrees MUSE SYSTEM Calculated T Chloe 73 degrees MUSE SYSTEM INTERPRETATION Sinus rhythm Occasional Premature ventricular complexes Low voltage QRS T wave abnormality, consider anterior ischemia Prolonged QT Abnormal ECG When compared with ECG of 30-JUL-2018 12:36, T wave inversion no longer evident in Lateral leads Confirmed by Denys Miller MD ([id number]) on 07/31/2018 3:59:20 PM MUSE SYSTEM 07/31/2018 12:1 7 AM EDT 07/31/2018 3:59 PM EDT Elena J King JOSE ECG ORDERABLES Performing Organization Address [facility] Co de Phone Number MUSE SYSTEM * EKG 12 Lead (07/30/2018 12:36 PM EDT) Ventricular rate 58 BPM MUSE SYSTEM Atrial Rate 58 BPM MUSE SYSTEM P-R Interval 170 ms MUSE SYSTEM QRS Duration 74 ms MUSE SYSTEM Q-T Interval 490 ms MUSE SYSTEM QTC Calculated (Bezet) 481 ms MUSE SYSTEM Calculated P Chloe 73 degrees MUSE SYSTEM Calculated R Chloe 20 degrees MUSE SYSTEM Calculated T Chloe 149 degrees MUSE SYSTEM INTERPRETATION Sinus bradycardia with sinus arrhythmia Occasional and consecutive Premature ventricular complexes Low voltage QRS T wave abnormality, consider anterolateral ischemia Prolonged QT Abnormal ECG When compared with ECG of 30-JUL-2018 10:04, (unconfirmed) Previous ECG has undetermined rhythm, needs review Nonspecific T wave abnormality, improved in Inferior leads T wave inversion now evident in Lateral leads Confirmed by [place],MD, Fidel ([id number]) on 07/30/2018 3:49:17 PM MUSE SYSTEM [...] (arteriosclerotic cardiovascular disease) ??PCI in 2005 at [facility]: stents to LAD x2, LCx x2, ramus ? ? Atrial fibrillation ??Diagnosed 2018, on rivaroxaban, s/p DCCV ? ? Hypertension [...] (Bezet) 522 ms MUSE SYSTEM Calculated R Chloe 21 degrees MUSE SYSTEM Calculated T Chloe -141 degrees MUSE SYSTEM INTERPRETATION Atrial flutter with variable A-V block Abnormal ECG When compared with ECG of 30-JUL-2018 07:34, No significant change was found Confirmed by MD PAT, KURTIS ([id number]) on 07/30/2018 4:46:36 PM MUSE SYSTEM 07/30/2018 10:0 4 AM EDT 07/30/2018 4:46 PM EDT Elena Lanre Hooks APRN ECG ORDERABLES Performing Organization Address [facility] Co de Phone Number MUSE SYSTEM * EKG 12 Lead (07/30/2018 7:34 AM EDT) Ventricular rate 90 BPM MUSE SYSTEM Atrial Rate 90 BPM MUSE SYSTEM QRS Duration 74 ms MUSE SYSTEM Q-T Interval 392 ms MUSE SYSTEM QTC Calculated (Bezet) 479 ms MUSE SYSTEM Calculated R Chloe 22 degrees MUSE SYSTEM Calculated T Chloe 107 degrees MUSE SYSTEM INTERPRETATION Atrial flutter with variable A-V block with premature ventricular or aberrantly conducted complexes Abnormal ECG When compared with ECG of 29-JUL-2018 23:04, (unconfirmed) Current undetermined rhythm precludes rhythm comparison, needs review No significant change was found Confirmed by MD Chamberlain Timothy ([id number]) on 07/30/2018 3:49:11 PM MUSE SYSTEM 07/30/2018 7:34 AM EDT 07/30/2018 3:49 PM EDT Elena Hooks APRN ECG ORDERABLES Performing Organization Address City/[facility] Co de Phone Number MUSE SYSTEM * (ABNORMAL) Differential, Automated (07/30/2018 4:06 AM EDT) Neutrophil % 57.5 % [facility] Neutrophil Absolute 9.87(H) 1.70 - 6.10 x10(3)/mc L [facility] Lymph % 11.4 % [facility] Lymphocytes Abs 2.0 0.9 - 3.2 x10(3)/[facility] Monocyte % 7.5 % [facility] Monocyte Abs 1.3(H) 0.3 - 0.9 x10(3)/ L [facility] Eos % 23.0 % [facility] Eosinophils Abs 4.0(H) 0.0 - 0.4 x10(3)/[facility] Basophil % 0.3 % [facility] Baso Absolute 0.0 0.0 - 0.1 x10(3)/[facility] Immature Gran % 0.30 % [facility] Comment: Immature granulocytes(IG's)percentage and absolute count will include metamyelocytes, myelocytes, and promyelocytes. Blood smears from CBCs yielding IG's will be scanned manually for concordance. If this scan disagrees with the automated IG or if promyelocytes are noted, a manual differential will be performed. Immature Gran Absolute 0.06(H) 0.00 - 0.04 x10(3)/[facility] Blood specimen (specimen) 07/30/2018 4:06 AM EDT 07/30/2018 4:38 AM EDT Narrative Resulting Agency Comment Spec In Lab Deonna aRsheed [employer] HEMATOLOGY ORDERAB LES [facility] [place] [address] * (ABNORMAL) Hemogram (07/30/2018 4:06 AM EDT) White Blood Cell 17.2(H) 4.0 - 9.5 x10(3)/[facility] Red Blood Cell 4.75 4.58 - 5.54 x10(6)/[facility] Hemoglobin 15.0 13.7 - 16.5 gm/dL [facility] Hematocrit 43.5 40.5 - 48.5 % [facility] Mean Cell Volume 91.6 82.9 - 93.1 fL [facility] Mean Cell Hemoglobin 31.6 27.5 - 32.1 pg [facility] Mean Cell Hemoglobin Concentration 34.5 32.0 - 35.7 gm/dL [facility] Platelet 197 145 - 357 x10(3)/mc L [facility] RDW Standard Deviation 42.6 36.0 - 45.0 fL [facility] RDW coefficient of variation 12.8 11.4 - 13.8 % [facility] Mean Platelet Volume 10.9 7.6 - 12.9 fL [facility] NRBC% auto 0.0 % [facility] NRBC Absolute 0.000 0.000 - 0.000 x10(3)/mc L [facility] Blood specimen (specimen) 07/30/2018 4:06 AM EDT 07/30/2018 4:38 AM EDT Narrative Resulting Agency Comment Spec In Lab Deonna Rasheed [employer] HEMATOLOGY ORDERAB LES Performing Organization Address City/[facility]/ZIP Co de Phone Number [facility] [place] [address] * Magnesium (07/30/2018 4:06 AM EDT) Magnesium 0.83 0.69 - 1.07 mmol/L [facility] Blood specimen (specimen) 07/30/2018 4:06 AM EDT 07/30/2018 4:38 AM EDT Narrative Resulting Agency Comment Spec In Lab Deonna Rasheed [employer] CHEMISTRY ORDERABL ES Performing Organization Address City/[facility]/ZIP Co de Phone Number [facility] [place] [address] * (ABNORMAL) BMP w/fasting Glucose (07/30/2018 4:06 AM EDT) Glucose Fasting 110(H) 65 - 99 mg/dL [facility] Comment: ?Fasting* Glucose Interpretive Criteria Normal [...] of Diabetes Mellitus, Position Statement from the [place] [employer]. ??Diabetes Care, Volume 33, Supplement 1, Dec 2009 Blood Urea Nitrogen 19 10 - 20 mg/dL [facility] Creatinine 0.81 0.80 - 1.50 mg/dL [facility] Sodium 138 135 - 145 mmol/L [facility] Potassium 4.1 3.5 - 5.0 mmol/L [facility] Comment: Please note: ??Patients with WBC >100,000 may have falsely elevated Potassium levels. ??For accurate Potassium quantification in these patients send serum separator tube (gold top) for subsequent determinations. ??Contact the Clinical Chemistry Laboratory if there are any questions. Chloride 101 98 - 107 mmol/L [facility] Carbon Dioxide 24 22 - 31 mmol/L [facility] Anion Gap 13 5 - 15 mmol/L [facility] Calcium 9.3 8.5 - 10.5 mg/dL [facility] Est Glomerular Filtration Rate 89 >=60 mL/min/1. 73 m?? [facility] Comment: The eGFR was calculated using the CKD-EPI equation. As with all creatinine based estimates of kidney function, eGFR values calculated with the CKD-EPI equation are not accurate in patients with acute kidney failure, extremes of body mass or the acutely ill. [email or web address] eGFR 103 >=60 mL/min/1. 73 m?? [facility] Comment: The eGFR was calculated using the CKD-EPI equation. As with all creatinine based estimates of kidney function, eGFR values calculated with the CKD-EPI equation are not accurate in patients with acute kidney failure, extremes of body mass or the acutely ill. [email or web address] Blood specimen (specimen) 07/30/2018 4:06 AM EDT 07/30/2018 4:38 AM EDT Narrative Resulting Agency Comment Spec In Lab Deonna T Kathya [employer] CHEMISTRY ORDERABL ES Performing Organization Address [facility] Co de Phone Number [facility] [place] [address] * EKG 12 Lead (07/29/2018 11:04 PM EDT) Ventricular rate 101 BPM MUSE SYSTEM Atrial Rate 104 BPM MUSE SYSTEM P-R Interval 176 ms MUSE SYSTEM QRS Duration 78 ms MUSE SYSTEM Q-T Interval 380 ms MUSE SYSTEM QTC Calculated (Bezet) 492 ms MUSE SYSTEM Calculated P Chloe 106 degrees MUSE SYSTEM Calculated R Chloe 26 degrees MUSE SYSTEM Calculated T Chloe 167 degrees MUSE SYSTEM INTERPRETATION Probable Atrial flutter with variable A-V block PVCs vs abbarrently conducted supraventricular beats Abnormal ECG When compared with ECG of 29-JUL-2018 07:21, No significant change was found Confirmed by MD PAT, KURTIS ([id number]) on 07/30/2018 4:45:35 PM MUSE SYSTEM 07/29/2018 11:0 4 PM EDT 07/30/2018 4:45 PM EDT Deonna T Kathya [employer] ECG ORDERABLES Performing Organization Address City/[facility]/ZIP Co de Phone Number MUSE SYSTEM * NENO W LMTD SPECTRAL DOPPLER COLOR DOPPLER (07/29/2018 3:33 PM EDT) EF 65 HEARTLAB SYSTEM Anatomical Region Laterality Modality Other 07/29/2018 Narrative 07/29/2018 3:51 PM EDT Procedure: ?Transesophageal Echocardiogram Patient: ?YOAN Haines ?(Age): 1945(72y) Med Rec#: ? [id number] ?Sex: ?M ? Site Loc: ? [facility] ?Ht / Wt: ??188(cm)/97(kg) Pt. Loc: ?[facility] ?BSA: ?2.24 Study Date: ?? 07/29/2018 ?Pt. Type: Tape: ? Referring: CLAUDIA JONES Reading: Ant Suarez ([id number]) Paperback Machine Operator: Tricia Donis ([id number]) Interpreting Fellow: Tricia Donis ([id number]) Diagnosis: *Unspecified atrial fibrillation (I48.91) Rhythm: ? [...] under the supervision of Dr. Suarez. ?The [facility] Echo Lab protocols for NENO procedures in [...] 07/29/2018 15:50:44 Images reviewed and interpretation verified [facility] Procedure Note Ant Suarez MD - 07/29/2018 Procedure: Transesophageal Echocardiogram Patient: YOAN Haines DOB(Age): 1945(72y) Med Rec#: [id number] Sex: M Site Loc: [facility] Ht / Wt: 188(cm)/97(kg) Pt. Loc: [facility] BSA: 2.24 Study Date: 07/29/2018 Pt. Type: Tape: Referring: CLAUDIA JONES Reading: Ant Suarez ([id number]) Paperback Machine Operator: Tricia Donis ([id number]) Interpreting Fellow: Tricia Donis ([id number]) Diagnosis: *Unspecified atrial fibrillation (I48.91) Rhythm: A-Fib [...] under the supervision of Dr. Suarez. The [facility] Echo Lab protocols for NENO procedures in [...] 07/29/2018 15:50:44 Images reviewed and interpretation verified [facility] Deonna Rasheed APRN ECHO ORDERABLES * Urine Hold (07/29/2018 1:38 PM EDT) Hold, Urine Sample in lab. [facility] Urine specimen (specimen) Urine / Unknown 07/29/2018 1:38 PM EDT 07/29/2018 2:45 PM EDT Elena Hooks APRN URINE ORDERABLES [facility] [place] [address] * Urinalysis with reflex Culture (07/29/2018 1:38 PM EDT) Glucose, Urine Dipstick Negative Negative mg/dL [facility] Protein, Urine Dipstick Negative Negative mg/dL [facility] Bilirubin, Urine Dipstick Negative Negative mg/dL [facility] Comment: Clinical correlation required for positive Urine Bilirubin results as false positive may occur with some drugs and drug related products. If a false positive is suspected a serum total bilirubin should be considered if clinically indicated. Urobilinogen, Urine Dipstick Normal Normal mg/dL [facility] pH, Urn (dipstick) 5.0 5.0 - 8.0 [facility] Blood, Urine Dipstick Negative Negative mg/dL [facility] Ketone, Urine Dipstick Negative Negative mg/dL [facility] Nitrite, Urine Dipstick Negative Negative [facility] Leukocytes, Urine Dipstick Negative Negative [facility] Appearance, Urine Dipstick Clear Clear [facility] Specific [place] Urine Automated 1.020 1.002 - 1.030 [facility] Color, Urine Dipstick Yellow Yellow [facility] Reflex to Culture No [facility] Urine specimen obtained by clean catch procedure (specimen) 07/29/2018 1:38 PM EDT 07/29/2018 2:45 PM EDT Narrative Resulting Agency Comment Spec In Lab Elena Hooks APRN URINE ORDERABLES [facility] [place] [id number] * EKG 12 Lead (07/29/2018 7:21 AM EDT) Ventricular rate 84 BPM MUSE SYSTEM Atrial Rate 375 BPM MUSE SYSTEM QRS Duration 72 ms MUSE SYSTEM Q-T Interval 400 ms MUSE SYSTEM QTC Calculated (Bezet) 472 ms MUSE SYSTEM Calculated R Chloe 9 degrees MUSE SYSTEM Calculated T Chloe 10 degrees MUSE SYSTEM INTERPRETATION Atrial fibrillation Abnormal ECG When compared with ECG of 28-JUL-2018 08:44, (unconfirmed) No significant change was found I personally reviewed the tracing and edited the fellows interpretation Confirmed by fellow MD Langley Daniel ([id number]) on 07/29/2018 2:47:56 PM Confirmed by MD Segura Shawn M. ([id number]) on 07/29/2018 4:42:19 PM MUSE SYSTEM 07/29/2018 7:21 AM EDT 07/29/2018 4:42 PM EDT Deonna Rasheed [employer] ECG ORDERABLES MUSE SYSTEM * (ABNORMAL) Differential, Automated (07/29/2018 5:17 AM EDT) Neutrophil % 50.1 % [facility] Neutrophil Absolute 7.84(H) 1.70 - 6.10 x10(3)/[facility] Lymph % 11.6 % [facility] Lymphocytes Abs 1.8 0.9 - 3.2 x10(3)/[facility] LABORATORY Monocyte % 6.9 % [facility] Monocyte Abs 1.1(H) 0.3 - 0.9 x10(3)/[facility] LABORATORY Eos % 30.7 % [facility] Eosinophils Abs 4.8(H) 0.0 - 0.4 x10(3)/[facility] LABORATORY Basophil % 0.3 % [facility] Baso Absolute 0.0 0.0 - 0.1 x10(3)/[facility] LABORATORY Immature Gran % 0.40 % [facility] Comment: Immature granulocytes(IG's)percentage and absolute count will include metamyelocytes, myelocytes, and promyelocytes. Blood smears from CBCs yielding IG's will be scanned manually for concordance. If this scan disagrees with the automated IG or if promyelocytes are noted, a manual differential will be performed. Immature Gran Absolute 0.06(H) 0.00 - 0.04 x10(3)/[facility] Blood specimen (specimen) 07/29/2018 5:17 AM EDT 07/29/2018 5:44 AM EDT Narrative Resulting Agency Comment Spec In Lab Deonna Ordoñezr [employer] HEMATOLOGY ORDERAB LES Performing Organization Address City/[facility]/ZIP Co de Phone Number [facility] [place] [address] * (ABNORMAL) Hemogram (07/29/2018 5:17 AM EDT) White Blood Cell 15.6(H) 4.0 - 9.5 x10(3)/mc L [facility] Red Blood Cell 4.93 4.58 - 5.54 x10(6)/mc L [facility] Hemoglobin 15.7 13.7 - 16.5 gm/dL [facility] Hematocrit 45.2 40.5 - 48.5 % [facility] Mean Cell Volume 91.7 82.9 - 93.1 fL [facility] Mean Cell Hemoglobin 31.8 27.5 - 32.1 pg [facility] Mean Cell Hemoglobin Concentration 34.7 32.0 - 35.7 gm/dL [facility] Platelet 208 145 - 357 x10(3)/mc L [facility] RDW Standard Deviation 42.3 36.0 - 45.0 [facility] LABORATORY RDW coefficient of variation 12.7 11.4 - 13.8 % [facility] Mean Platelet Volume 11.1 7.6 - 12.9 [facility] LAB[facility]ATORY NRBC% auto 0.0 % [facility] NRBC Absolute 0.000 0.000 - 0.000 x10(3)/mc L [facility] Blood specimen (specimen) 07/29/2018 5:17 AM EDT 07/29/2018 5:44 AM EDT Narrative Resulting Agency Comment Spec In Lab Deonna Eneida WoodKathya [employer] HEMATOLOGY ORDERAB LES [facility] [place] [address] * Magnesium (07/29/2018 5:17 AM EDT) Magnesium 0.85 0.69 - 1.07 mmol/L [facility] Blood specimen (specimen) 07/29/2018 5:17 AM EDT 07/29/2018 5:44 AM EDT Narrative Resulting Agency Comment Spec In Lab Deonna Rasheed [employer] CHEMISTRY ORDERABL ES [facility] [place] [address] * (ABNORMAL) BMP w/fasting Glucose (07/29/2018 5:17 AM EDT) Glucose Fasting 107(H) 65 - 99 mg/dL [facility] Comment: ?Fasting* Glucose Interpretive Criteria Normal [...] of Diabetes Mellitus, Position Statement from the [place] [employer]. ??Diabetes Care, Volume 33, Supplement 1, Dec 2009 Blood Urea Nitrogen 20 10 - 20 mg/dL [facility] Creatinine 0.86 0.80 - 1.50 mg/dL [facility] Sodium 139 135 - 145 mmol/L [facility] Potassium 4.3 3.5 - 5.0 mmol/L [facility] Comment: Please note: ??Patients with WBC >100,000 may have falsely elevated Potassium levels. ??For accurate Potassium quantification in these patients send serum separator tube (gold top) for subsequent determinations. ??Contact the Clinical Chemistry Laboratory if there are any questions. Chloride 102 98 - 107 mmol/L [facility] Carbon Dioxide 25 22 - 31 mmol/L [facility] Anion Gap 12 5 - 15 mmol/L [facility] Calcium 9.4 8.5 - 10.5 mg/dL [facility] Est Glomerular Filtration Rate 87 >=60 mL/min/1. 73 m?? [facility] Comment: The eGFR was calculated using the CKD-EPI equation. As with all creatinine based estimates of kidney function, eGFR values calculated with the CKD-EPI equation are not accurate in patients with acute kidney failure, extremes of body mass or the acutely ill. http://Embrace/[facility] eGFR 100 >=60 mL/min/1. 73 m?? [facility] Comment: The eGFR was calculated using the CKD-EPI equation. As with all creatinine based estimates of kidney function, eGFR values calculated with the CKD-EPI equation are not accurate in patients with acute kidney failure, extremes of body mass or the acutely ill. [email or web address]/[facility] Blood specimen (specimen) 07/29/2018 5:17 AM EDT 07/29/2018 5:44 AM EDT Narrative Resulting Agency Comment Spec In Lab Deonna Rasheed APRN CHEMISTRY ORDERABL ES [facility] [place] [id number] * CT Cervical Spine wo Contrast (07/28/2018 [...] IMPRESSION No acute cervical spine fracture. Elena J King [facility] CT ORDERABLES * CT [...] fluid collection. No cortical infarctions.. Procedure Note Jaya Dominguez MD - 07/28/2018 EXAMINATION: CT HEAD [...] * POCT Glucose (07/28/2018 9:12 AM EDT) Pathologist [facility] Glucose, POC 191 65 - 199 mg/dL [facility] Comment: Supplemental ranges: <140 mg/dL before meals <180 mg/dL all other times of the day Blood specimen (specimen) 07/28/2018 9:12 AM EDT 07/28/2018 9:12 AM EDT Cameron Mahmood MD POINT OF CARE TEST O RDERABLES [facility] [place] [address] * EKG 12 Lead (07/28/2018 8:44 AM EDT) Ventricular rate 77 BPM MUSE SYSTEM Atrial Rate 357 BPM MUSE SYSTEM QRS Duration 76 ms MUSE SYSTEM Q-T Interval 410 ms MUSE SYSTEM QTC Calculated (Bezet) 463 ms MUSE SYSTEM Calculated R Chloe 14 degrees MUSE SYSTEM Calculated T Chloe 48 degrees MUSE SYSTEM INTERPRETATION Atrial fibrillation Abnormal ECG When compared with ECG of 28-JUL-2018 07:19, No significant change was found I personally reviewed the tracing and edited the fellows interpretation Confirmed by fellow MD Langley Daniel ([id number]) on 07/29/2018 2:53:27 PM Confirmed by MD Segura Shawn M. ([id number]) on 07/29/2018 4:42:14 PM MUSE SYSTEM 07/28/2018 8:44 AM EDT 07/29/2018 4:42 PM EDT Deonna T Kathya [employer] ECG ORDERABLES Performing Organization Address City/[facility] Co de Phone Number MUSE SYSTEM * EKG 12 Lead (07/28/2018 7:19 AM EDT) Ventricular rate 81 BPM MUSE SYSTEM Atrial Rate 326 BPM MUSE SYSTEM QRS Duration 76 ms MUSE SYSTEM Q-T Interval 402 ms MUSE SYSTEM QTC Calculated (Bezet) 466 ms MUSE SYSTEM Calculated R Chloe 7 degrees MUSE SYSTEM Calculated T Chloe 63 degrees MUSE SYSTEM INTERPRETATION Atrial fibrillation Abnormal ECG When compared with ECG of 27-JUL-2018 07:24, No significant change was found I personally reviewed the tracing and edited the fellows interpretation Confirmed by fellow MD Langley Daniel ([id number]) on 07/28/2018 8:28:08 AM Confirmed by MD Segura Shawn M. ([id number]) on 07/28/2018 5:49:00 PM MUSE SYSTEM 07/28/2018 7:19 AM EDT 07/28/2018 5:49 PM EDT Deonna T Kathya [employer] ECG ORDERABLES Performing Organization Address City/[facility]/ZIP Co de Phone Number MUSE SYSTEM * (ABNORMAL) Differential, Automated (07/28/2018 3:54 AM EDT) Neutrophil % 41.8 % [facility] Neutrophil Absolute 6.28(H) 1.70 - 6.10 x10(3)/[facility] LABOR[facility] Lymph % 13.3 % [facility] Lymphocytes Abs 2.0 0.9 - 3.2 x10(3)/[facility] LABORATORY Monocyte % 5.8 % [facility] Monocyte Abs 0.9 0.3 - 0.9 x10(3)/[facility] LABORATORY Eos % 38.3 % [facility] Eosinophils Abs 5.8(H) 0.0 - 0.4 x10(3)/[facility] LABORATORY Basophil % 0.6 % [facility] Baso Absolute 0.1 0.0 - 0.1 x10(3)/[facility] LABORATORY Immature Gran % 0.20 % [facility] Comment: Immature granulocytes(IG's)percentage and absolute count will include metamyelocytes, myelocytes, and promyelocytes. Blood smears from CBCs yielding IG's will be scanned manually for concordance. If this scan disagrees with the automated IG or if promyelocytes are noted, a manual differential will be performed. Immature Gran Absolute 0.03 0.00 - 0.04 x10(3)/[facility] Blood specimen (specimen) 07/28/2018 3:54 AM EDT 07/28/2018 4:10 AM EDT Narrative Resulting Agency Comment Spec In Lab Deonna Rasheed [employer] HEMATOLOGY ORDERAB LES [facility] [place] [address] * (ABNORMAL) Hemogram (07/28/2018 3:54 AM EDT) White Blood Cell 15.0(H) 4.0 - 9.5 x10(3)/[facility] Red Blood Cell 5.08 4.58 - 5.54 x10(6)/[facility] Hemoglobin 16.3 13.7 - 16.5 gm/dL [facility] Hematocrit 46.4 40.5 - 48.5 % [facility] Mean Cell Volume 91.3 82.9 - 93.1 [facility] Mean Cell Hemoglobin 32.1 27.5 - 32.1 pg [facility] Mean Cell Hemoglobin Concentration 35.1 32.0 - 35.7 gm/dL [facility] Platelet 203 145 - 357 x10(3)/mc L [facility] RDW Standard Deviation 42.5 36.0 - 45.0 [facility] RDW coefficient of variation 12.6 11.4 - 13.8 % [facility] Mean Platelet Volume 11.0 7.6 - 12.9 [facility]ORY NRBC% auto 0.0 % [facility] NRBC Absolute 0.000 0.000 - 0.000 x10(3)/mc L [facility] Blood specimen (specimen) 07/28/2018 3:54 AM EDT 07/28/2018 4:10 AM EDT Narrative Resulting Agency Comment Spec In Lab Deonna Rasheed [employer] HEMATOLOGY ORDERAB LES Performing Organization Address City/[facility]/ZIP Co de Phone Number [facility] [place] [address] * Magnesium (07/28/2018 3:54 AM EDT) Magnesium 0.86 0.69 - 1.07 mmol/L [facility] Blood specimen (specimen) 07/28/2018 3:54 AM EDT 07/28/2018 4:10 AM EDT Narrative Resulting Agency Comment Spec In Lab Deonna Rasheed [employer] CHEMISTRY ORDERABL ES Performing Organization Address City/[facility]/ZIP Co de Phone Number [facility] [place] [address] * (ABNORMAL) BMP w/fasting Glucose (07/28/2018 3:54 AM EDT) Glucose Fasting 118(H) 65 - 99 mg/dL [facility] Comment: ?Fasting* Glucose Interpretive Criteria Normal [...] of Diabetes Mellitus, Position Statement from the [place] [employer]. ??Diabetes Care, Volume 33, Supplement 1, Dec 2009 Blood Urea Nitrogen 19 10 - 20 mg/dL [facility] Creatinine 0.83 0.80 - 1.50 mg/dL [facility] Sodium 140 135 - 145 mmol/L [facility] Potassium 4.4 3.5 - 5.0 mmol/L [facility] Comment: Please note: ??Patients with WBC >100,000 may have falsely elevated Potassium levels. ??For accurate Potassium quantification in these patients send serum separator tube (gold top) for subsequent determinations. ??Contact the Clinical Chemistry Laboratory if there are any questions. Chloride 103 98 - 107 mmol/L [facility] Carbon Dioxide 26 22 - 31 mmol/L [facility] Anion Gap 11 5 - 15 mmol/L [facility] Calcium 9.7 8.5 - 10.5 mg/dL [facility] Est Glomerular Filtration Rate 88 >=60 mL/min/1. 73 m?? [facility] Comment: The eGFR was calculated using the CKD-EPI equation. As with all creatinine based estimates of kidney function, eGFR values calculated with the CKD-EPI equation are not accurate in patients with acute kidney failure, extremes of body mass or the acutely ill. http://Embrace/[facility] eGFR 102 >=60 mL/min/1. 73 m?? [facility] Comment: The eGFR was calculated using the CKD-EPI equation. As with all creatinine based estimates of kidney function, eGFR values calculated with the CKD-EPI equation are not accurate in patients with acute kidney failure, extremes of body mass or the acutely ill. [email or web address] Blood specimen (specimen) 07/28/2018 3:54 AM EDT 07/28/2018 4:10 AM EDT Narrative Resulting Agency Comment Spec In Lab Deonna Rasheed APRN CHEMISTRY ORDERABL ES Performing Organization Address City/State/[facility] Co de Phone Number [facility] [place] [address] * CARDIAC CATHETERIZATION (07/27/2018 11:30 AM EDT) Anatomical Region Laterality Modality Other Narrative 07/27/2018 11:39 AM EDT ?[facility] ? Cardiac Catheterization/Intervention Report ? Patient Name: Agata FloresBryant ? Procedure Date: 07/27/2018 ? A #: [id number] ? Primary Physician: Jose D, Min W ? Case #: [id number] ? File Name: [id number] ? Catheterization Order Number: [id number] ? [facility] ? Final Report [place], [place] ? Patient Name: ? Agata Haines. Yoan ?ID#: ?[id number] ? : ?1945 ? Procedure Date: ? [...] presented with: unstable angina (w/i 60 days). [place] ?Cardiovascular Society angina class was III. This [...] heart catheterization ?was performed utilizing a 7Fr Townley-Naila catheter. 5,000 units of heparin ?were administered. [...] Note Min Jeffery II, MD - 09/02/2018 [facility] Cardiac Catheterization/Intervention Report Patient Name: Agata FloresBryant Procedure Date: 07/27/2018 A #: [id number] Primary Physician: Min Jeffery Case #: [id number] File Name: [id number] Catheterization Order Number: [id number] [facility] FinalReport [place], [place] Patient Name: Agata Flores ID#:[id number] :1945 Procedure Date: July 27, 2018 Case [...] presented with: unstable angina (w/i 60 days). [place] Cardi[employer] Society angina class was III. This [...] Right heartcatheterization was performed utilizing a 7Fr Townley-Naila catheter. 5,000 units ofheparin were administered. A total of 100cc of Omnipaque were opened gis152ih of Omnipaque were administered. Radiation: Fluoro time [...] the entire procedure. Dr. Min Jeffery M.D. was present during the moderate sedation intraservice time as documented by the sedation nurse. Case time =00:37. Dr. Min Jeffery M.D. performed the coronary angiography andft heart catheterization. Min Jeffery M.D. Electronically Signed by: Min Jeffery M.D. Report Finalized: 07/27/2018 11:32 Report Last Ammended: 09/02/2018 10:32 Deonna Rasheed APRN CARDIAC CATH ORDER PARK * ECHO COMPLETE (07/27/2018 9:12 AM EDT) EF 61 HEARTChartboost SYSTEM Anatomical Region Laterality Modality Other 07/27/2018 Narrative 07/27/2018 9:27 AM EDT Procedure: ?Transthoracic Echocardiogram Patient: ?YOAN Haines ?(Age): 1945(72y) Med Rec#: ? [id number] ?Sex: ?M ? Site Loc: ? [facility] ?Ht / Wt: ??188(cm)/99(kg) Pt. Loc: ?Adult Floor ? BSA: ?2.26 Study Date: ?? 07/27/2018 ?Pt. Type: Inpatient Tape: ? Referring: JAZMIN Reading: Gamaliel Sotelo ([id number]) Paperback Machine Operator: Sander Houser RDCS Diagnosis: *Chest pain, unspecified (R07.9) Indication: ?? [...] ? Mid-Inferior ?Normal ? Mid-Inferoseptal ?Normal ? [place]-Septal ? Normal ? [place]-Anterior ? Normal ? [place]-Lateral ?Normal ? [place]-Inferior ? Normal ? [place]-Tip ?Normal ? This report has been electronically signed by: Gamaliel Sotelo MD ? 07/27/2018 09:26:48 Images reviewed and interpretation verified [facility] Procedure Note Gamaliel Sotelo MD - 07/27/2018 Procedure: Transthoracic Echocardiogram Patient: YOAN AVELAR(Age): 1945(72y) Med Rec#: [id number] Sex: M [facility] Loc: [facility] Ht / Wt: 188(cm)/99(kg) Pt. Loc: Adult Floor BSA: 2.26 Study Date: 07/27/2018 Pt. Type: Inpatient Tape: Referring: JAZMIN Reading: Gamaliel Sotelo ([id number]) Paperback Machine Operator: Sander Houser ADELA Diagnosis: *Chest pain, unspecified (R07.9) Indication: Chest [...] Normal Mid-Posterolateral Normal Mid-Inferior Normal Mid-Inferoseptal Normal [place]-Septal Normal [place]-Anterior Normal [place]-Lateral Normal [place]-Inferior Normal [place]-Tip Normal This report has been electronically signed by: Gamaliel Sotelo MD 07/27/2018 09:26:48 Images reviewed and interpretation verified [facility] Deonna T Kathya [employer] ECHO ORDERABLES * EKG 12 Lead (07/27/2018 7:24 AM EDT) Ventricular rate 75 BPM MUSE SYSTEM Atrial Rate 166 BPM MUSE SYSTEM QRS Duration 76 ms MUSE SYSTEM Q-T Interval 382 ms MUSE SYSTEM QTC Calculated (Bezet) 426 ms MUSE SYSTEM Calculated R Chloe 12 degrees MUSE SYSTEM Calculated T Chloe 112 degrees MUSE SYSTEM INTERPRETATION Atrial fibrillation Abnormal ECG When compared with ECG of 26-JUL-2018 11:14, No significant change was found I personally reviewed the tracing and edited the fellows interpretation Confirmed by fellow MD Langley Daniel ([id number]) on 07/27/2018 11:57:52 AM Confirmed by Denys Miller MD ([id number]) on 07/27/2018 2:50:48 PM MUSE SYSTEM 07/27/2018 7:24 AM EDT 07/27/2018 2:50 PM EDT Deonna T Kathya [employer] ECG ORDERABLES MUSE SYSTEM * (ABNORMAL) Differential, Automated (07/27/2018 3:46 AM EDT) Neutrophil % 34.6 % [facility] Neutrophil Absolute 5.07 1.70 - 6.10 x10(3)/mc L [facility] Lymph % 18.7 % [facility] Lymphocytes Abs 2.7 0.9 - 3.2 x10(3)/mc L [facility] Monocyte % 5.5 % [facility] Monocyte Abs 0.8 0.3 - 0.9 x10(3)/mc L [facility] Eos % 40.5 % [facility] Eosinophils Abs 5.9(H) 0.0 - 0.4 x10(3)/[facility] Basophil % 0.6 % [facility] Baso Absolute 0.1 0.0 - 0.1 x10(3)/[facility] Immature Gran % 0.10 % [facility] LABORATORY Comment: Immature granulocytes(IG's)percentage and absolute count will include metamyelocytes, myelocytes, and promyelocytes. Blood smears from CBCs yielding IG's will be scanned manually for concordance. If this scan disagrees with the automated IG or if promyelocytes are noted, a manual differential will be performed. Immature Gran Absolute 0.02 0.00 - 0.04 x10(3)/[facility] LABORATORY Blood specimen (specimen) 07/27/2018 3:46 AM EDT 07/27/2018 4:06 AM EDT Narrative Resulting Agency Comment Spec In Lab Deonna Rasheed CONCRETE PRE[employer] MOULDER HEMATOLOGY ORDERAB LES Performing Organization Address City/State/[facility] Co de Phone Number [facility] [place] [address] * (ABNORMAL) Hemogram (07/27/2018 3:46 AM EDT) White Blood Cell 14.7(H) 4.0 - 9.5 x10(3)/[facility] LABORATORY Red Blood Cell 4.89 4.58 - 5.54 x10(6)/[facility] LABORATORY Hemoglobin 15.7 13.7 - 16.5 gm/dL [facility] Hematocrit 44.4 40.5 - 48.5 % [facility] Mean Cell Volume 90.8 82.9 - 93.1 fL [facility] Mean Cell Hemoglobin 32.1 27.5 - 32.1 pg [facility] Mean Cell Hemoglobin Concentration 35.4 32.0 - 35.7 gm/dL [facility] Platelet 207 145 - 357 x10(3)/[facility] LABORATORY RDW Standard Deviation 41.4 36.0 - 45.0 fL [facility] RDW coefficient of variation 12.6 11.4 - 13.8 % [facility] Mean Platelet Volume 10.7 7.6 - 12.9 fL [facility] NRBC% auto 0.0 % [facility] LABORATORY NRBC Absolute 0.000 0.000 - 0.000 x10(3)/mc L [facility] Blood specimen (specimen) 07/27/2018 3:46 AM EDT 07/27/2018 4:06 AM EDT Narrative Resulting Agency Comment Spec In Lab Deonna Rasheed [employer]CR[employer] MOULDER HEMATOLOGY ORDERAB LES Performing Organization Address [facility] Co de Phone Number [facility] [place] [address] * Magnesium (07/27/2018 3:46 AM EDT) Magnesium 0.86 0.69 - 1.07 mmol/L [facility] Blood specimen (specimen) 07/27/2018 3:46 AM EDT 07/27/2018 4:06 AM EDT Narrative Resulting Agency Comment Spec In Lab Deonna Rasheed CONCRET[employer] MOULDER CHEMISTRY ORDERABL ES Performing Organization Address [facility] Co de Phone Number [facility] [place] [address] * (ABNORMAL) BMP w/fasting Glucose (07/27/2018 3:46 AM EDT) Glucose Fasting 111(H) 65 - 99 mg/dL [facility] Comment: ?Fasting* Glucose Interpretive Criteria Normal [...] of Diabetes Mellitus, Position Statement from the [place] [employer]. ??Diabetes Care, Volume 33, Supplement 1, Dec 2009 Blood Urea Nitrogen 19 10 - 20 mg/dL [facility] Creatinine 0.89 0.80 - 1.50 mg/dL [facility] Sodium 138 135 - 145 mmol/L [facility] Potassium 4.4 3.5 - 5.0 mmol/L [facility] Comment: Please note: ??Patients with WBC >100,000 may have falsely elevated Potassium levels. ??For accurate Potassium quantification in these patients send serum separator tube (gold top) for subsequent determinations. ??Contact the Clinical Chemistry Laboratory if there are any questions. Chloride 103 98 - 107 mmol/L [facility] Carbon Dioxide 23 22 - 31 mmol/L [facility] Anion Gap 12 5 - 15 mmol/L [facility] Calcium 9.7 8.5 - 10.5 mg/dL [facility] Est Glomerular Filtration Rate 85 >=60 mL/min/1. 73 m?? [facility] Comment: The eGFR was calculated using the CKD-EPI equation. As with all creatinine based estimates of kidney function, eGFR values calculated with the CKD-EPI equation are not accurate in patients with acute kidney failure, extremes of body mass or the acutely ill. [email or web address] eGFR 99 >=60 mL/min/1. 73 m?? [facility] Comment: The eGFR was calculated using the CKD-EPI equation. As with all creatinine based estimates of kidney function, eGFR values calculated with the CKD-EPI equation are not accurate in patients with acute kidney failure, extremes of body mass or the acutely ill. [email or web address] Blood specimen (specimen) 07/27/2018 3:46 AM EDT 07/27/2018 4:06 AM EDT Narrative Resulting Agency Comment Spec In Lab Deonna Eneida WoodKathya [employer]CR[employer] MOULDER CHEMISTRY ORDERABL ES Performing Organization Address [facility]/ZIP Co de Phone Number [facility] [place] [address] * Cardiac Enzymes (LEB/CGP) (07/26/2018 10:30 PM EDT) Troponin-T <0.01 0.00 - 0.00 ng/mL [facility] Comment: The 99th percentile for Troponin T is less than 0.01 ng/mL, any detectable cTnT concentration using this assay should be considered elevated. According to the third universal definition of myocardial infarction the following criteria with a clinical presentation consistent with acute myocardial ischemia meets the diagnosis for a myocardial infarction ([place]). Detection of a rise and/or fall of cTnT, with at least one value greater than the 99th percentile (> or = 0.01) and with at least one of the following ?? Symptoms of ischemia ?? New or presumed new significant IV-amvmitg-C wave (ST-T) changes or new left bundle [...] additional sample may be indicated. Reference: Third Rosamond Definition of Myocardial Infarction. Journal of the [place] [employer] 2012;60:1581-98 Creatine Kinase 23 0 - 200 unit/L [facility] Blood specimen (specimen) 07/26/2018 10:30 PM EDT 07/26/2018 11:04 PM EDT Narrative Resulting Agency Comment Spec In Lab Deonna Eneida WoodKathya [employer]CR[employer] MOULDER CHEMISTRY ORDERABL ES Performing Organization Address [facility]/ZIP Co de Phone Number [facility] [place] [address] * Cardiac Enzymes (LEB/CGP) (07/26/2018 4:31 PM EDT) Pathologist [facility] Troponin-T <0.01 0.00 - 0.00 ng/mL [facility] Comment: The 99th percentile for Troponin T is less than 0.01 ng/mL, any detectable cTnT concentration using this assay should be considered elevated. According to the third universal definition of myocardial infarction the following criteria with a clinical presentation consistent with acute myocardial ischemia meets the diagnosis for a myocardial infarction ([place]). Detection of a rise and/or fall of cTnT, with at least one value greater than the 99th percentile (> or = 0.01) and with at least one of the following ?? Symptoms of ischemia ?? New or presumed new significant BS-vddjwzw-N wave (ST-T) changes or new left bundle [...] additional sample may be indicated. Reference: Third Rosamond Definition of Myocardial Infarction. Journal of the [place] [employer] 2012;60:1581-98 Creatine Kinase 22 0 - 200 unit/L [facility] Blood specimen (specimen) 07/26/2018 4:31 PM EDT 07/26/2018 4:48 PM EDT Narrative Resulting Agency Comment Spec In Lab Deonna Rasheed APRN CHEMISTRY ORDERABL ES [facility] [place] [address] * Hemoglobin A1c (07/26/2018 11:44 AM EDT) Pathologist [facility] Hemoglobin A1c 5.6 4.3 - 5.6 % [facility] Comment: Reference Range: 4.3 - 5.6% [...] Mellitus, Diabetes Care 2013; 36: Suppl. 1, K45-69 Estimated Average Glucose See note mg/dL [facility] Comment: Estimated Average Glucose not appropriate [...] into estimated average glucose values. ??Diabetes Care 2008:31(8):1416-1459. Blood specimen (specimen) Venous Draw / Unknown 07/26/2018 11:44 AM EDT 07/26/2018 12:50 PM EDT Narrative Resulting Agency Comment Spec In Lab Deonna Rasheed APRN CHEMISTRY ORDERABL ES [facility] [place] [address] * TSH (07/26/2018 11:44 AM EDT) Thyroid Stimulating Hormone 3.98 0.27 - 4.20 mlU/ML [facility] Blood specimen (specimen) Venous Draw / Unknown 07/26/2018 11:44 AM EDT 07/26/2018 11:52 AM EDT Narrative Resulting Agency Comment Spec In Lab Deonna Monique Kathyaradha GARCIA CHEMISTRY ORDERABL ES Performing Organization Address City/[facility]/ZIP Co de Phone Number [facility] [place] [address] * Scan, Peripheral Blood (07/26/2018 11:44 AM EDT) Pathologist [facility] Plat estimate Normal [facility] RBC Morphology Normal [facility] Blood specimen (specimen) 07/26/2018 11:44 AM EDT 07/26/2018 11:49 AM EDT Narrative Resulting Agency Comment Spec In Lab Janet ALMONTE HEMATOLOGY ORDERABLE S [facility] [place] [address] * (ABNORMAL) Differential, Automated (07/26/2018 11:44 AM EDT) [facility] Neutrophil % 43.7 % [facility] Neutrophil Absolute 6.32(H) 1.70 - 6.10 x10(3)/mc L [facility] Lymph % 11.7 % [facility] Lymphocytes Abs 1.7 0.9 - 3.2 x10(3)/mc L [facility] Monocyte % 5.7 % [facility] Monocyte Abs 0.8 0.3 - 0.9 x10(3)/mc L [facility] Eos % 38.1 % [facility] Eosinophils Abs 5.5(H) 0.0 - 0.4 x10(3)/mc L [facility] Basophil % 0.5 % [facility] Baso Absolute 0.1 0.0 - 0.1 x10(3)/mc L [facility] Immature Gran % 0.30 % [facility] Comment: Immature granulocytes(IG's)percentage and absolute count will include metamyelocytes, myelocytes, and promyelocytes. Blood smears from CBCs yielding IG's will be scanned manually for concordance. If this scan disagrees with the automated IG or if promyelocytes are noted, a manual differential will be performed. Immature Gran Absolute 0.04 0.00 - 0.04 x10(3)/ L [facility] Blood specimen (specimen) 07/26/2018 11:44 AM EDT 07/26/2018 11:49 AM EDT Narrative Resulting Agency Comment Spec In Lab Janet ALMONTE HEMATOLOGY ORDERABLE S [facility] [place] [address] * (ABNORMAL) Hemogram (07/26/2018 11:44 AM EDT) White Blood Cell 14.4(H) 4.0 - 9.5 x10(3)/[facility] LABORATORY Red Blood Cell 4.73 4.58 - 5.54 x10(6)/ L [facility] Hemoglobin 14.9 13.7 - 16.5 gm/dL [facility] Hematocrit 43.2 40.5 - 48.5 % [facility] Mean Cell Volume 91.3 82.9 - 93.1 fL [facility] Mean Cell Hemoglobin 31.5 27.5 - 32.1 pg [facility] Mean Cell Hemoglobin Concentration 34.5 32.0 - 35.7 gm/dL [facility] Platelet 209 145 - 357 x10(3)/ L [facility] RDW Standard Deviation 41.9 36.0 - 45.0 fL [facility] RDW coefficient of variation 12.7 11.4 - 13.8 % [facility] Mean Platelet Volume 11.1 7.6 - 12.9 fL [facility] NRBC% auto 0.0 % [facility] NRBC Absolute 0.000 0.000 - 0.000 x10(3)/mc L [facility] Blood specimen (specimen) 07/26/2018 11:44 AM EDT 07/26/2018 11:49 AM EDT Narrative Resulting Agency Comment Spec In Lab Janet ALMONTE HEMATOLOGY ORDERABLE S Performing Organization Address City/[facility]/ZIP Co de Phone Number [facility] [place] [address] * APTT (07/26/2018 11:44 AM EDT) Partial Thromboplastin Time 34 25 - 37 sec [facility] Comment: The PTT is NOT appropriate for heparin monitoring. Use the Anti-Xa level for heparin monitoring (HEP UFH) or LMWH monitoring (HEP LMW). A PTT less than 37 seconds generally indicates adequate hemostasis. Blood specimen (specimen) 07/26/2018 11:44 AM EDT 07/26/2018 11:49 AM EDT Narrative Resulting Agency Comment Spec In Lab Cameron Mahmood MD HEMATOLOGY ORDERABLE S Performing Organization Address [facility] Co de Phone Number [facility] [place] [address] * (ABNORMAL) Prothrombin Time (07/26/2018 11:44 AM EDT) Prothrombin Time 13.4(H) 9.4 - 12.5 sec [facility] International Normalization Ratio 1.2 [facility] Comment: An INR <2.0 indicates adequate [...] MD HEMATOLOGY ORDERABLE S Performing Organization Address City/[facility]/ZIP Co de Phone Number [facility] [place] [address] * (ABNORMAL) pro-Brain Natriuretic Peptide (07/26/2018 11:44 AM EDT) NT-proBNP 453(H) <=125 pg/mL [facility] Blood specimen (specimen) 07/26/2018 11:44 AM EDT 07/26/2018 11:49 AM EDT Narrative Resulting Agency Comment Spec In Lab Cameron Mahmood MD CHEMISTRY ORDERABLES Performing Organization Address [facility] Co de Phone Number [facility] [place] [address] * Cardiac Enzymes (LEB/CGP) (07/26/2018 11:44 AM EDT) Troponin-T <0.01 0.00 - 0.00 ng/mL [facility] Comment: The 99th percentile for Troponin T is less than 0.01 ng/mL, any detectable cTnT concentration using this assay should be considered elevated. According to the third universal definition of myocardial infarction the following criteria with a clinical presentation consistent with acute myocardial ischemia meets the diagnosis for a myocardial infarction ([place]). Detection of a rise and/or fall of cTnT, with at least one value greater than the 99th percentile (> or = 0.01) and with at least one of the following ?? Symptoms of ischemia ?? New or presumed new significant XO-roumvwt-X wave (ST-T) changes or new left bundle [...] additional sample may be indicated. Reference: Third Rosamond Definition of Myocardial Infarction. Journal of the [place] [employer] 2012;60:1581-98 Creatine Kinase <20 0 - 200 unit/L [facility] Blood specimen (specimen) 07/26/2018 11:44 AM EDT 07/26/2018 11:49 AM EDT Narrative Resulting Agency Comment Spec In Lab Deonna Monique Kathyaradha GARCIA CHEMISTRY ORDERABL ES [facility] [place] [address] * Basic Metabolic Panel (non-fasting) (07/26/2018 11:44 AM EDT) Glucose 118 65 - 199 mg/dL [facility] Comment:Diabetes: >=200 mg/d L plus symptoms Blood Urea Nitrogen 20 10 - 20 mg/dL [facility] Creatinine 0.82 0.80 - 1.50 mg/dL [facility] Sodium 137 135 - 145 mmol/L [facility] Potassium 4.2 3.5 - 5.0 mmol/L [facility] Comment: Please note: ??Patients with WBC >100,000 may have falsely elevated Potassium levels. ??For accurate Potassium quantification in these patients send serum separator tube (gold top) for subsequent determinations. ??Contact the Clinical Chemistry Laboratory if there are any questions. Chloride 102 98 - 107 mmol/L [facility] Carbon Dioxide 24 22 - 31 mmol/L [facility] Anion Gap 11 5 - 15 mmol/L [facility] Calcium 9.4 8.5 - 10.5 mg/dL [facility] Est Glomerular Filtration Rate 88 >=60 mL/min/1. 73 m?? [facility] Comment: The eGFR was calculated using the CKD-EPI equation. As with all creatinine based estimates of kidney function, eGFR values calculated with the CKD-EPI equation are not accurate in patients with acute kidney failure, extremes of body mass or the acutely ill. [email or web address]/DHnkf eGFR 102 >=60 mL/min/1. 73 m?? [facility] Comment: The eGFR was calculated using the CKD-EPI equation. As with all creatinine based estimates of kidney function, eGFR values calculated with the CKD-EPI equation are not accurate in patients with acute kidney failure, extremes of body mass or the acutely ill. [email or web address] Blood specimen (specimen) 07/26/2018 11:44 AM EDT 07/26/2018 11:49 AM EDT Narrative Resulting Agency Comment Spec In Lab Cameron Mahmood MD CHEMISTRY ORDERABLES Performing Organization Address [facility] Co de Phone Number [facility] [place] [address] * EKG 12 Lead (07/26/2018 11:14 AM EDT) Ventricular rate 93 BPM MUSE SYSTEM Atrial Rate 86 BPM MUSE SYSTEM QRS Duration 76 ms MUSE SYSTEM Q-T Interval 366 ms MUSE SYSTEM QTC Calculated (Bezet) 455 ms MUSE SYSTEM Calculated R Chloe 30 degrees MUSE SYSTEM Calculated T Chloe 83 degrees MUSE SYSTEM INTERPRETATION Atrial fibrillation with premature ventricular or aberrantly conducted complexes Abnormal ECG No previous ECGs available Confirmed by MD Glynn, Fred ([id number]) on 07/26/2018 6:28:42 PM MUSE SYSTEM 07/26/2018 11:1 4 AM EDT 07/26/2018 6:28 PM EDT Cameron Mahmood MD ECG ORDERABLES Performing Organization Address City/[facility]/ZIP Co de Phone Number MUSE SYSTEM * SCAN DOC: BANK PRESIDENT (07/26/2018 12:00 AM EDT) Anatomical Region Laterality Modality Other Narrative 07/26/2018 12:00 AM EDT Ordered by an unspecified provider. Scanning Provider MEDIA MGR SCAN EXT O RDR/RSLT documented in this encounter Visit Diagnoses Diagnosis ASCVD (arteriosclerotic cardiovascular disease)- Primary Unspecified cardiovascular disease Chest pain, unspecified type Persistent atrial fibrillation Atrial fibrillation Atrial fibrillation Hypertension Unspecified essential hypertension HLD (hyperlipidemia) Other and unspecified hyperlipidemia Chest pain Chest pain, unspecified documented in this encounter Admitting Diagnoses Diagnosis Chest pain Chest pain, unspecified documented in this encounter Administered Medications Inactive Administered Medications - up to 3 most recent administrations Medication Order MAR Action Action Date Dose Rate Site aspirin EC tablet 81 mg 81 mg, Oral, DAILY, First dose on Fri07/27/18 at 0900, Until Discontinued, Routine Given 08/01/2018 9:09 AM EDT 81 mg Given 07/31/2018 8:31 AM EDT 81 mg Given 07/30/2018 8:10 AM EDT 81 mg brimonidine (ALPHAGAN) 0.2 % ophthalmic solution 1 drop 1 drop, Both Eyes, 2 TIMES DAILY, First dose on Fri07/26/18 at 2100, Until Discontinued, Routine Given 08/01/2018 9:13 AM EDT 1 drop Given 07/31/2018 9:20 PM EDT 1 drop Given 07/31/2018 8:31 AM EDT 1 drop dofetilide (TIKOSYN) capsule 250 mcg 250 mcg, Oral, 2 TIMES DAILY, First dose on Fri07/31/18 at 1100, Until Discontinued, Routine, Please indicate the name of the EP Attending who authorized the use of Dofetilide: First Dose Allowed - Awaiting authorizing provider approval Given 07/31/2018 9:20 PM EDT 250 mcg Given 07/31/2018 10:41 AM EDT 250 mcg dofetilide (TIKOSYN) capsule 500 mcg 500 mcg, Oral, EVERY 12 HOURS SCHEDULED [...] nefazodone, norfloxacin, quinine, zafrilukast (inhibitors of cytochrome [id number]) may increase dofetilide levels; consider decreasing the [...] use of Dofetilide: Approved by GAGE Joshi Given 07/30/2018 9:22 PM EDT 500 mcg Given 07/30/2018 8:10 AM EDT 500 mcg Given 07/29/2018 9:02 PM EDT 500 mcg heparin (Porcine) subcutaneous injection 5,000 Units 5,000 Units, Subcutaneous, EVERY 12 HOURS SCHEDULED (2 times per day), First dose on 07/26/18 at 2100, Until Discontinued, Routine Given 07/26/2018 8:43 PM EDT 5,000 Units magnesium oxide (MAG-OX) tablet 400 mg 400 [...] Given 08/01/2018 12:16 AM EDT 25 mg ondansetron (ZOFRAN) injection 4 mg 4 mg, Intravenous, EVERY 8 HOURS PRN, Starting on Fri07/28/18 at 1032, Until Fri07/29/18 at 1619, Nausea Given 07/28/2018 10:36 AM EDT 4 mg rivaroxaban (XARELTO) tablet 20 mg 20 mg, Oral, DAILY WITH DINNER, First dose on Fri07/27/18 at 1700, Until Discontinued, Must be administered with food., Routine, Restricted anticoagulant, choose the most appropriate response: Approved indication of non-valvular atrial fibrillation Given 07/31/2018 5:23 PM EDT 20 mg Given 07/30/2018 4:54 PM EDT 20 mg Given 07/29/2018 4:19 PM EDT 20 mg rosuvastatin (CRESTOR) tablet 10 mg 10 mg, Oral, EVERY EVENING, First dose (after last modification) on Fri07/26/18 at 1700, Until Discontinued, Routine Given 07/31/2018 5:23 PM EDT 10 mg Given 07/30/2018 4:54 PM EDT 10 mg Given 07/29/2018 4:18 PM EDT 10 mg sodium chloride 0.9% infusion 75 mL/hr, Intravenous, CONTINUOUS, Starting on Fri07/27/18 at 0600, Until Fri07/27/18 at 0813 New Bag 07/27/2018 6:12 AM EDT 75 mL/hr 75 mL/hr sodium chloride 0.9% infusion 100 mL/hr, Intravenous, CONTINUOUS, Starting on Fri07/27/18 at 1200, Until Fri07/27/18 at 1459, Recovery (Recovery-Hospital Unit) New Bag 07/27/2018 11:42 AM EDT 100 mL/hr 100 m L/hr sodium chloride 0.9% infusion 100 mL/hr, Intravenous, CONTINUOUS, Starting on Fri07/29/18 at 1115, Until Tash 07/30/18 at 1651, Please give 1 L total New Bag 07/30/2018 11:54 AM EDT New Bag 07/30/2018 10:07 AM EDT 100 mL/hr 100 mL/hr New Bag 07/29/2018 11:02 AM EDT 100 mL/hr 100 mL/hr timolol (TIMOPTIC) 0.5 % ophthalmic solution 1 drop 1 drop, Both Eyes, 2 TIMES DAILY, First dose on Fri07/26/18 at 2100, Until Discontinued, Routine Given 08/01/2018 [...] 0810 (Given - Provider: Amadeo Espinosa RN)1054 ([facility] Hold - Provider: Admin Adt - Reason: Transfer to a Procedural area)1116 ([facility] Unhold - Provider: Admin Adt)1155 ([facility] Hold - Provider: Admin Adt - Reason: Transfer to a Procedural area)1217 ([facility] Unhold - Provider: Admin Adt) 0831 (Given - Provider: Amadeo Espinosa RN) 0909 (Given - Provider: Holly Alexandre, RN) brimonidine (ALPHAGAN) 0.2 % ophthalmic solution 1 drop(Linked Group 1) 1 drop, Both Eyes, 2 TIMES DAILY, First dose on Fri07/26/18 at 2100, Until Discontinued, Routine 0810 (Given - Provider: Amadeo Espinosa RN)1054 ([facility] Hold - Provider: Admin Adt - Reason: Transfer to a Procedural area)1116 ([facility] Unhold - Provider: Admin Adt)1155 ([facility] Hold - Provider: Admin Adt - Reason: Transfer to a Procedural area)1217 ([facility] Unhold - Provider: Admin Adt)2121 [...] RN)212 (Given - Provider: Mally Malcolm, MORIAH) 09 (Hold - Provider: Holly Alexandre, RN - Reason: Per Order - Comment: Per GAGE Sharp) dofetilide [...] nefazodone, norfloxacin, quinine, zafrilukast (inhibitors of cytochrome [id number]) may increase dofetilide levels; consider decreasing the [...] - Reason: Transfer to a Procedural area)1217 ([facility] Unhold - Provider: Admin Adt)2122 (Given - Provider: Jordon Cat RN - Comment: QTc- 0.46) 0900 (Not Given - Provider: Amadeo Espinosa RN - Reason: Per MD Order) magnesium oxide (MAG-OX) tablet 400 mg 400 mg, Oral, DAILY, First dose on 08/01/18 at 1200, Until Discontinued, Routine 1224 (Given - Provider: Holly Alexandre, MORIAH) metoprolol tartrate (LOPRESSOR) tablet 25 mg 25 mg, Oral, EVERY 6 HOURS SCHEDULED, First dose on 07/26/18 at 1300, Until Discontinued, Routine 0607 (Given - Provider: Diane Duran RN)1054 ([facility] Hold - Provider: Admin Adt - Reason: Transfer to a Procedural area)1116 ([facility] Unhold - Provider: Admin Adt)1155 ([facility] Hold - Provider: Admin Adt - Reason: Transfer to a Procedural area)1200 (Automatically Held - Provider: Admin Adt)1217 ([facility] Unhold - Provider: Admin Adt)1801 (Given - Provider: Amadeo Espinosa RN) 0015 (Given - Provider: Jordon Cat RN)0639 (Given - Provider: Jordon Cat, MORIAH)1205 (Given - Provider: Amadeo Espinosa RN)1724 (Given - Provider: Amadeo Espinosa RN) 0016 (Given - Provider: Mally Malcolm, MORIAH)0532 (Given - Provider: Mally Malcolm, MORIAH)1224 (Given - Provider: Holly Alexandre RN - Comment: consuelo Sharp) rivaroxaban (XARELTO) tablet 20 mg 20 mg, Oral, DAILY WITH DINNER, First dose on 07/27/18 at 1700, Until Discontinued, Must be administered with food., Routine, Restricted anticoagulant, choose the most appropriate response: Approved indication of non-valvular atrial fibrillation 1054 ([facility] Hold - Provider: Admin Adt - Reason: Transfer to a Procedural area)1116 ([facility] Unhold - Provider: Admin Adt)1155 ([facility] Hold - Provider: Admin Adt - Reason: Transfer to a Procedural area)1217 ([facility] Unhold - Provider: Admin Adt)1654 (Given - Provider: Amadeo Espinosa RN) 1723 (Given - Provider: Amadeo Espinosa RN) rosuvastatin (CRESTOR) tablet 10 mg 10 mg, Oral, EVERY EVENING, First dose (after last modification) on 07/26/18 at 1700, Until Discontinued, Routine 1054 ([facility] Hold - Provider: Admin Adt - Reason: Transfer to a Procedural area)1116 ([facility] Unhold - Provider: Admin Adt)1155 ([facility] Hold - Provider: Admin Adt - Reason: Transfer to a Procedural area)1217 ([facility] Unhold - Provider: Admin Adt)1654 (Given - Provider: Amadeo Espinosa, RN) 1723 (Given - Provider: Amadeo Espinosa, RN) timolol (TIMOPTIC) 0.5 % ophthalmic solution 1 drop(Linked Group 1) 1 drop, Both Eyes, 2 TIMES DAILY, First dose on 07/26/18 at 2100, Until Discontinued, Routine 0810 (Given - Provider: Amadeo Espinosa RN)1054 ([facility] Hold - Provider: Admin Adt - Reason: Transfer to a Procedural area)1116 ([facility] Unhold - Provider: Admin Adt)1155 ([facility] Hold - Provider: Admin Adt - Reason: Transfer to a Procedural area)1217 ([facility] Unhold - Provider: Admin Adt)212 (Given - Provider: Jordon Cat RN) 0831 (Given - Provider: Amadeo Espinosa RN)2121 (Given - Provider: Mally Malcolm, MORIAH) 0909 (Given - Provider: Holly Alexandre, MORIAH) Continuous Medication Order 07/30/2018 07/31/2018 08/01/2018 sodium chloride 0.9% infusion (CANCELED) 100 mL/hr, Intravenous, CONTINUOUS, Starting on 07/29/18 at 1115, Until Tash 07/30/18 at 1651, Please give 1 L total 1007 (New Bag - Provider: Amadeo Espinosa RN)1054 ([facility] Hold - Provider: Admin Adt - Reason: Transfer to a Procedural area)1116 ([facility] Unhold - Provider: Admin Adt)1149 (Stopped - Provider: Amadeo Espinosa RN)1154 (New Bag - Provider: Lalo Forrester CRNA)1155 ([facility] Hold - Provider: Admin Adt - Reason: Transfer to a Procedural area)1217 ([facility] Unhold - Provider: Admin Adt) PRN Medication Order 07/30/2018 07/31/2018 08/01/2018 acetaminophen (TYLENOL) tablet 650 mg 650 mg, Oral, EVERY 4 HOURS PRN, Starting on 07/26/18 at 1242, Until 08/01/18 at 1705, Pain, Headaches, Maximum dose of acetaminophen is 4000 mg from all sources in 24 hours., Routine 1054 ([facility] Hold - Provider: Admin Adt - Reason: Transfer to a Procedural area)1116 ([facility] Unhold - Provider: Admin Adt)1155 ([facility] Hold - Provider: Admin Adt - Reason: Transfer to a Procedural area)1217 ([facility] Unhold - Provider: Admin Adt) [...] last 24 to 72 hours., Routine 1054 ([facility] Hold - Provider: Admin Adt - Reason: Transfer to a Procedural area)1116 ([facility] Unhold - Provider: Admin Adt)1155 ([facility] Hold - Provider: Admin Adt - Reason: Transfer to a Procedural area)1217 ([facility] Unhold - Provider: Admin Adt) [...] Routine documented in this encounter Care Teams Regulator Tester Relationship Specialty Start Date End Date Agata Barrera DO [address] [place] [address] PCP - General Family Medicine 07/01/18 documented as of this encounter
--- OUTSIDE RECORDS SUMMARY | 2024-07-21 19:31 | XMS_ITS | Encounter Summary ---
Author Organization [facility] Address [facility] [place] [address] Care Team Providers Care Store Team Member Name Role Phone Camacho Irwin MD Primary Care Provider [phone] Encounter Details Date Type Department Care Team (Latest Contact Info) Description 04/06/2015 9:27 AM EDT - 04/06/2015 11:59 PM EDT [place] [address] Nino Villa MD [facility] [place] [address] Brain abscess Discharge Disposition: Home Social History Tobacco Use Types Packs/Day Years Used Date Smoking Tobacco: Never Smokeless Tobacco: Never Alcohol Use Standard Drinks/Week Comments Not Asked 0 (1 standard drink = 0.6 oz pur e alcohol) Sex and Gender Information Value Date Recorded Sex Assigned at Male 10/01/2021 4:04 PM EDT Gender Identity Not on file Sexual Orientation Not on file documented as of this encounter Medications at Time of Discharge Medication Sig Dispensed Refills Start Date End Date atorvastatin (LIPITOR) 10 mg Tablet Take 10 mg by mouth daily. 05/21/2023 documented as of this encounter Plan of Treatment Upcoming Encounters Date Type Department Care Team (Late st Contact Info) Description 09/08/2024 9:40 AM EDT Office Visit Cardiology at [address] [place] [id number] Gonzales Torres MD [facility] [place] [address] documented as of this encounter Procedures Procedure Name Priority Date/Time Associated Diagnosis Comments DIFFERENTIAL, MANUAL Routine 04/06/2015 9:33 AM EDT NUCLEATED RED BLOOD CELLS Routine 04/06/2015 9:33 AM EDT HEMOGRAM Routine 04/06/2015 9:33 AM EDT Brain abscess SEDIMENTATION RATE Routine 04/06/2015 9: 33 AM EDT Brain abscess CBC (WITH DIFF) Routine 04/06/2015 9:33 AM EDT Brain abscess CRP, CARDIAC RISK (HS CRP) Routine 04/06/2015 9:33 AM EDT Brain abscess documented in this encounter Results * (ABNORMAL) Differential, Manual (04/06/2015 9:33 AM EDT) Segmented Neutrophils Manual 53 % CERNER MILLENNIUM Lymphocyte Manual 18 % CERNER MILLENNIUM Monocyte Manual 5 % CERN ER MILLENNIUM Eosinophil Manual 24 % CERNER MILLENNIUM Segs Absolute Manual 4.3 1.5 - 6.3 x10(3)/mc L CERNER MILLENNIUM ANC 4.29 1.50 - 6.30 x10(3)/mc L CERNER MILLENNIUM Lymph Absolute Manual 1.5 1.0 - 3.6 x10(3)/mc L CERNER MILLENNIUM Monocyte Absolute Manual 0.4 0.2 - 1.0 x10(3)/mc L CERNER MILLENNIUM Eos Absolute Manual 1.9(H) 0.0 - 0.5 x10(3)/mc L CERNER MILLENNIUM Total Cells Ct 100 CERNE R MILLENNIUM Plat estimate Normal CERNER MILLENNIUM RBC Morphology Abnormal CERNE R MILLENNIUM Ovalocytes 1-5 /HPF CERNER MILLENNIUM Blood specimen (specimen) 04/06/2015 9:33 AM EDT 04/06/2015 9:41 AM EDT Narrative Resulting Agency Comment Spec In Lab Nino Villa MD HEMATOLOGY ORDE CALVIN CERTONI SPENCERENNIUM * Nucleated Red Blood Cells (04/06/2015 9:33 AM EDT) NRBC% auto 0.0 % CERNER MILLENNIUM NRBC Absolute 0.000 0.000 - 0.012 x10(3)/mcL CERNER MILLENNIUM Blood specimen (specimen) 04/06/2015 9:33 AM EDT 04/06/2015 9:41 AM EDT Narrative Resulting Agency Comment Spec In Lab Nino Villa MD HEMATOLOGY ORDE CALVIN Performing Organization Address City/[facility]/ZIP Co de Phone Number CERNER TJENNIUM * (ABNORMAL) Hemogram (04/06/2015 9:33 AM EDT) White Blood Cell 8.1 4.0 - 10.0 x10(3)/mc L CERNER MILLENNIUM Red Blood Cell 4.23(L) 4.63 - 6.08 x10(6)/mc L CERNER MILLENNIUM Hemoglobin 13.1(L) 13.7 - 17.5 gm/dL CERNER MILLENNIUM Hematocrit 38.6(L) 40.0 - 51.0 % CERNER MILLENNIUM Mean Cell Volume 91.3 79.0 - 92.0 fL CERNER MILLENNIUM Mean Cell Hemoglobin 31.0 25.6 - 32.2 pg CERNER MILLENNIUM Mean Cell Hemoglobin Concentration 33.9 32.0 - 36.5 gm/dL CERNER MILLENNIUM Platelet 253 145 - 370 x10(3)/mc L CERNER MILLENNIUM RDW Standard Deviation 45.8 35.0 - 46.0 fL CERNER MILLENNIUM RDW coefficient of variation 14.0 10.9 - 14.4 % CERNER MILLENNIUM Mean Platelet Volume 10.9 9.0 - 12.0 fL CERNER MILLENNIUM Blood specimen (specimen) 04/06/2015 9:33 AM EDT 04/06/2015 9:41 AM EDT Narrative Resulting Agency Comment Spec In Lab Nino Villa MD HEMATOLOGY ORDE CALVIN Performing Organization Address [facility]/ZIP Co de Phone Number [facility] * High Sensitivity CRP (04/06/2015 9:33 AM EDT) C-Reactive Protein High Sensitivity 0.6 mg/L [facility] Comment: Interpretations: 1) For accurate cardiac risk assessment, the average of 2 values >2 weeks apart should be obtained (ref 1&2). A value >10 mg/L indicates an inflammatory condition, concentrations >10 mg/L should not be used for cardiac risk assessment. ?<1.0 mg/L: low risk ?1.0 - 3.0 mg/L: moderate risk ?>3.0 mg/L: high risk groups for future cardiovascular events 2) The general reference range of apparently healthy individuals using this test is <5.0 mg/L (derived from the test package insert) References: 1. Shanon TA et. al. ??AHA/CDC Scientific Statement: Markers of Inflammation and Cardiovascular Disease. ??Circulation 2003; 107:499-511 2. Radha PM. ??Clinical applications of C-reactive protein for cardiovascular disease detection and prevention. ??Circulation 2003; 107:363-369 Blood specimen (specimen) 04/06/2015 9:33 AM EDT 04/06/2015 9:41 AM EDT Narrative Resulting Agency Comment Spec In Lab Nino Villa MD CHEMISTRY ORDER PARK Performing Organization Address [facility]/ZIP Co de Phone Number [facility] * (ABNORMAL) Sedimentation rate (04/06/2015 9:33 AM EDT) Sedimentation Rate Automated 20(H) 0 - 15 mm/hr [facility] Blood specimen (specimen) 04/06/2015 9:33 AM EDT 04/06/2015 9:41 AM EDT Narrative Resulting Agency Comment Spec In Lab Nino Villa MD HEMATOLOGY YONG SIMPSON Performing Organization Address City/State/[facility] Co de Phone Number [facility] documented in this encounter Visit Diagnoses Diagnosis Brain abscess Intracranial abscess documented in this encounter Care Teams Store Team Member Relationship Specialty Start Date End Date Camacho Irwin MD [address] [place] [address] PCP - General 01/27/15 06/30/18 documented as of this encounter
--- OUTSIDE RECORDS SUMMARY | 2024-07-21 19:31 | XMS_ITS | Encounter Summary ---
[place] [address] Care Team Providers Care Checker [employer] Name Role Phone Agata Barrera DO Primary Care Provider [phone] Reason for Visit * Auth/Cert Specialty Diagnoses / Procedures Referred By Contac t Referred To Contact Diagnoses Chest pain ANGINA ?CAD Procedures CARDIAC CATHETERIZATION URG IPI Referral ID Status Reason Start Date Expiration Date Visits Re quested Visits Authorized [id number] 1 1 Encounter Details Date Type Department Care Team (Late st Contact Info) Description 07/29/2018 2:05 PM EDT - 07/29/2018 3:05 PM EDT Surgery [place] [address] Ant Suarez MD [facility] [place] [address] TRANSESOPHAGEAL ECHO DURING CATH/EP PROCEDURE Social History Tobacco Use Types Packs/Day [...] Agata Flores Patient Age: 72 y.o. Language: Brazilian Race: White Ethnicity: Not nor Admit date: [...] [facility] can be reached at [phone] Discharge Diagnoses (Hospital Problems) and Secondary Diagnoses [...] x2, distal LCx x2, ramus x1 at [facility]), HTN, HLD, persistent a-fib (diagnosed 6 weeks ago, s/p DCCV 3 weeks ago, on xarelto), and brain abscess (s/p surgery and abx treatment in 2014) who presented to [facility] with progressive dyspnea and lightheadedness on [...] presumed to be in sinus rhythm. His shop helper, Dr. Ma, had also scheduled him for an outpatient nuclear stress test to be done in the coming weeks. On Friday, 07/24, he had an episode of chest pressure, occurring with his shortness of breath and lightheadedness on exertion. It was relieved with rest. He went to [facility] ED and was in a-fib with HR 80. Troponins were negative, EKG was without concerning findings. He was admitted to await transfer to [facility] for cardiac catheterization, given his history of ASCVD. He had one additional episode of chest pressure on exertion while at [facility], when he had gotten up to [...] past. He was started on aspirin at [facility] without side effects. Hospital Course: Chest pressure, with h/o ASCVD The patient ruled out for NSTEMI with negative troponin x3, however symptoms were concerning for his anginal equivalent. ECG showed no acute ST changed. Echo showed EF 61% without wall motion abnormalities. Given the patient???s risk factors and presentation, it was decided to proceed with coronaryangiography. He went to the dock or pier laborer for a diagnostic cath, which showed non-obstructive CAD. Access was via the right radial artery, the site was clean, dry, and intact on day of discharge. He was discharged on aspirin 81mg daily, metoprolol, statin, and SL nitro prn. ?? Persistent a-fib, rate controlled The patient was in controlled a-fib, HR in 80s, on admission. His [id number] score is 3 (age, HTN,CAD). Rivaroxaban had [...] appointments: During 8am-5pm Friday through Friday call [phone] to speak with a nurse in the cardiology clinic All other times call [phone] and ask to speak to the sweeper operator highways cert occupational therapy asst. Return to work: as needed Driving: as needed Follow up Appointments: PCP Agata Barrera DO [phone] to see you in a week. Please [...] appointments: During 8am-5pm Friday through Friday call [phone] to speak with a nurse in the cardiology clinic All other times call [phone] and ask to speak to the sweeper operator highways cert occupational therapy asst. Return to work: as needed Driving: as needed Follow up Appointments: PCP Agata Barrera DO [phone] to see you in a week. Please [...] Progress Note Patient Name: Agata Flores Service: NON PROFIT FINANCIAL CONTROLLER / PA Responsible Attending: Ant Suarez MD Reason for continued hospitalization: A-fib management, Dofetilide load, s/p cardioversion to NSR Telemetry monitoring EP to see patient prior to continuing Dofetilide Active Problems: Active Hospital Problems Diagnosis ??? ASCVD (arteriosclerotic cardiovascular disease) PCI in 2005 at [facility]: stents to LAD x2, LCx x2, [...] x2, distal LCx x2, ramus x1 at [facility]), HTN, HLD, persistent a-fib (diagnosed 6 weeks ago, s/p DCCV 3weeks ago, on xarelto), and brain abscess (s/p surgery and abx treatment in 2014) who presented to [facility] with progressive dyspnea and lightheadedness on [...] 80-100s since admission, currently in A. fib [id number] Score: 3 (age, HTN, CAD) Continue metoprolol Continues on rivaroxaban EP consult appreciated ENNO ruled out atrial Thrombus Dofetilide 500 mcg [...] MD Kelly H. LaFlamme, PA 08/01/2018 Pager [phone] 08/01/2018 I have seen the patient and [...] for Nutrition Intervention: Diet Order Diet Order: [facility], [facility] Appetite: Good Food allergies: NKFA Chewing/Swallowing [...] Assessment: Patient seen regarding Nutrition Education - [facility], [facility] diet. Patient reported a good appetite [...] 1:56 PM EDT CM verified with pharmacy [facility]. It does not require prior authorization and the copay is 5 dollars. Corazon Allen RN CM Pager [phone] * Josh Muir PA - 07/31/2018 10:45 AM EDT Cardiac Electrophysiology Progress Note Attending: Fred Maki MD Problem List: Patient Active Problem List Diagnosis ??? ','ASCVD (arteriosclerotic cardiovascular disease) Overview Note: PCI in 2005 at [facility]: stents to LAD x2, LCx x2, [...] x2, distal LCx x2, ramus x1 at [facility]), HTN and HLD. His cardiac enzymes remained negative and his EKGs were not suggestive of ischemia. He was transferred to [facility] for cardiac catheterization which revealed non-obstructive CAD. [...] of patient and formulation of plan Pager: [phone] Associated attestation - Fred Maki MD - 07/31/2018 3:24 PM EDT Patient seen and examined. Pertinent data (jani. ECGs) reviewed. Plan agreed with. Fred Maki MD, PhD, [facility] Cardiac Electrophysiology 07/31/2018 3:24 PM * Ant Suarez MD - 07/31/2018 10:35 AM EDT Images from the original note were not included. Inpatient Cardiology Progress Note Patient Name: Agata Flores Service: NON PROFIT FINANCIAL CONTROLLER / PA Responsible Attending: Ant Suarez MD [...] x2, distal LCx x2, ramus x1 at [facility]), HTN, HLD, persistent a-fib (diagnosed 6 weeks ago, s/p DCCV 3weeks ago, on xarelto), and brain abscess (s/p surgery and abx treatment in 2014) who presented to [facility] with progressive dyspnea and lightheadedness on [...] 80-100s since admission, currently in A. fib [id number] Score: 3 (age, HTN, CAD) Continue metoprolol [...] MD Kelly H. LaFlamme, PA 07/31/2018 Pager [phone] 07/31/2018 I have seen the patient and [...] (NENO/CT/pre-op PPI etc) Fred Maki MD, PhD, [facility] Cardiac Electrophysiology * Corazon Allen, MORIAH - 07/30/2018 11:07 AM EDT CM continues to monitor for post hospital needs. Potential DC Friday. Pt started on Tikosyn po (consider possible preauth for medication). No home care needs identified. Corazon Allen RN Pager [phone] * Elena HooksJOSE - 07/30/2018 9:01 AM EDT Inpatient Cardiology Progress Note Patient Name: Agata Flores Service: NON PROFIT FINANCIAL CONTROLLER / PA Responsible Attending: Cameron Mahmood MD Reason for continued hospitalization: A-fib management Syncope Dofetilide load, cardioversion Active Problems: Active Hospital Problems Diagnosis ??? ASCVD (arteriosclerotic cardiovascular disease) PCI in 2005 at [facility]: stents to LAD x2, LCx x2, [...] x2, distal LCx x2, ramus x1 at [facility]), HTN, HLD, persistent a-fib (diagnosed 6 weeks ago, s/p DCCV 3weeks ago, on xarelto), and brain abscess (s/p surgery and abx treatment in 2014) who presented to [facility] with progressive dyspnea and lightheadedness on [...] 80-100s since admission, currently in A. fib [id number] Score: 3 (age, HTN, CAD) Continue metoprolol [...] Arrived from or per bed accompanied by legal operations manager. Phase I in progress. Patient has dry cough. States tickle in thrOAT. Denies shortness of breath or chest pain. * Elena Hooks, PLATFORM MAN - 07/29/2018 11:49 AM EDT Inpatient Cardiology Progress Note Patient Name: Agata Flores Service: NON PROFIT FINANCIAL CONTROLLER / PA Responsible Attending: Cmaeron Mahmood MD Reason for continued hospitalization: Evaluation and management of chest pain S/p cardiac catheterization, non-obstructive disease EP consult for a-fib management Syncope Active Problems: Active Hospital Problems Diagnosis ??? ASCVD (arteriosclerotic cardiovascular disease) PCI in 2005 at [facility]: stents to LAD x2, LCx x2, [...] x2, distal LCx x2, ramus x1 at [facility]), HTN, HLD, persistent a-fib (diagnosed 6 weeks ago, s/p DCCV 3weeks ago, on xarelto), and brain abscess (s/p surgery and abx treatment in 2014) who presented to [facility] with progressive dyspnea and lightheadedness on [...] controlled HR controlled in 80-100s since admission [id number] Score: 3 (age, HTN, CAD) Continue metoprolol [...] with pt in more detail short and usp risk of afib ablation and drug therapy [...] clear dofetilide initiation Fred Maki MD, PhD, [facility] Cardiac Electrophysiology * Stephanie Mcgraw RN - 07/28/2018 10:43 AM EDT 0845 :Mr Flores was finishing his shower , sitting on the toilet . He stated That he began to feel dizzy , put his call light on and notified the COIL PLACER that he was feeling dizzy.I ran to [...] Progress Note Patient Name: Agata Flores Service: NON PROFIT FINANCIAL CONTROLLER / PA Responsible Attending: Cameron Mahmood MD Reason for continued hospitalization: Evaluation and management of chest pain S/p cardiac catheterization, non-obstructive disease EP consult for a-fib management Syncope Active Problems: Active Hospital Problems Diagnosis ??? ASCVD (arteriosclerotic cardiovascular disease) PCI in 2005 at [facility]: stents to LAD x2, LCx x2, [...] position on the toilet by a nursing home aide. When the nursing home aide went to find other staff to help [...] his reports. He was evaluated by this teletypewriter installer along with Dr. Mahmood once he regained [...] x2, distal LCx x2, ramus x1 at [facility]), HTN, HLD, persistent a-fib (diagnosed 6 weeks ago, s/p DCCV 3weeks ago, on xarelto), and brain abscess (s/p surgery and abx treatment in 2014) who presented to [facility] with progressive dyspnea and lightheadedness on [...] controlled HR controlled in 80-100s since admission [id number] Score: 4 (age, HTN, CAD) Continue metoprolol [...] I shared this visit with Elena Jessee PLATFORM MAN and guided the medical decision-making. * Deonna Rasheed, PLATFORM MAN - 07/27/2018 1:28 PM EDT Inpatient Cardiology Progress Note Patient Name: Agata Flores Service: NON PROFIT FINANCIAL CONTROLLER / PA Responsible Attending: Cameron Mahmood MD Reason for continued hospitalization: Evaluation and management of chest pain S/p cardiac catheterization, non-obstructive disease EP consult for a-fib management Active Problems: Active Hospital Problems Diagnosis ??? ASCVD (arteriosclerotic cardiovascular disease) PCI in 2005 at [facility]: stents to LAD x2, LCx x2, [...] x2, distal LCx x2, ramus x1 at [facility]), HTN, HLD, persistent a-fib (diagnosed 6 weeks ago, s/p DCCV 3weeks ago, on xarelto), and brain abscess (s/p surgery and abx treatment in 2014) who presented to [facility] with progressive dyspnea and lightheadedness on [...] Persistent a-fib, rate controlled HR controlled in [id number] since admission [id number] Score: 4 (age, HTN, CAD) Continue metoprolol, [...] Full code Discussed with Cameron Mahmood MD. Doenna Rasheed, MSN, SUGAR PLANTATION MANAGER-, JOSE 07/27/2018 Pager [phone] Associated attestation - Cameron Mahmood MD - 07/27/2018 3:58 PM EDT Cardiology Attending Addendum I shared this visit with Deonna Rasheed APRN, and guided the medical decision-making. * Min Jeffery II - 07/27/2018 11:33 AM EDT Agata Flores July 27, 2018 [phone] Display Card Writer - Preliminary Findings Procedures: coronary angiography left [...] be: 4 (see definitions below). Definitions from [place] Study of Health and Aging Clinical Frailty [...] with all outside activities and with minor records analysis manager. May need help with bathing and dressing. [...] this encounter H&P Notes * Deonna Rasheed, PLATFORM MAN - 07/26/2018 11:05 AM EDT Cardiology Admission H&P Patient Name: Agata Flores Date of : 1945 Age: 72 y.o. Hospital Admit Date: 07/26/2018 Inpatient Attending: Cameron Mahmood MD PCP: Agata Barrera, Presenting Diagnosis/Chief Complaint: Chest pressure Active Problem List: Active Hospital Problems Diagnosis ??? ASCVD (arteriosclerotic cardiovascular disease) PCI in 2005 at [facility]: stents to LAD x2, LCx x2, [...] x2, distal LCx x2, ramus x1 at [facility]), HTN, HLD, persistent a-fib (diagnosed 6 weeks ago, s/p DCCV 3 weeks ago, on xarelto), and brain abscess (s/p surgery and abx treatment in 2014) who presented to [facility] with progressive dyspnea and lightheadedness on [...] presumed to be in sinus rhythm. His shop helper, Dr. Ma, had also scheduled him for an outpatient nuclear stress test to be done in the coming weeks. On Friday, 07/24, he had an episode of chest pressure, occurring with his shortness of breath and lightheadedness on exertion. It was relieved with rest. He went to [facility] ED and was in a-fib with HR 80. Troponins were negative, EKG was without concerning findings. He was admitted to await transfer to [facility] for c ardiac catheterization, given his history of ASCVD. He had one additional episode of chest pressureon exertion while at [facility], when he had gotten up to [...] past. He was started on aspirin at [facility] without side effects. Past Medical History: Past Medical History: Diagnosis Date ??? A-fib ??? Brain abscess ??? CAD (coronary artery disease) ??? HLD (hyperlipidemia) ??? HTN (hypertension) Surgical History/Problems: Past Surgical History: Procedure Laterality Date ??? PRO STEREO BX/ASPIR/EXCIS, INTRACRANIAL LESN Right 01/27/2015 @STEREOTACTIC BX,ASP, OR EXC.-INTRACRANIAL LESION, W/SCAN performed by Jose Small MD at [facility] MAIN OR ??? PRO STEREOTACTIC CPTR ASSTD PX CRANIAL, INTRADURAL Right 01/27/2015 STEREOTACTIC COMPUTER-ASSTD NAVIGATIONAL CRANIAL INTRADURAL performed by Jose Small MD at [facility] MAIN OR Significant Family History: [facility], lives with in [facility]. 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: Review of Systems [...] LAD x2, distalLCx x2, ramus x1 at [facility]), HTN, HLD, persistent a-fib (diagnosed 6 weeks ago, s/p DCCV 3 weeks ago, on xarelto), and brain abscess (s/p surgery and abx treatment in 2014) who presented to [facility] with progressive dyspnea and lightheadedness on [...] 2018 showed EF 60-65%, no WMAs, per [facility] notes) Plan for cardiac catheterization tomorrow No plavix or heparin at this time Continue aspirin, metoprolol, statin, SL nitro prn Persistent a-fib, rate controlled HR controlled in 80s since admission [id number] Score: 4 (age, HTN, CAD) Continue metoprolol [...] with Cameron Mahmood MD. Deonna Rasheed, MSN, SUGAR PLANTATION MANAGER-ANDREEA, JOSE 07/26/2018 Pager [phone] Associated attestation - Cameron Mahmood MD - [...] (arteriosclerotic cardiovascular disease) PCI in 2005 at [facility]: stents to LAD x2, LCx x2, [...] get scripts to family to bring to [facility] pharm to ensure receipt prior to close [...] 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: MEDICARE Secondary Insurance: [employer] [place] Prescription Coverage: yes Preferred Pharmacy: See demographics Other: n/a Primary Care Provider: Agata Barrera DO [phone] Patient/Caregiver Goals of Treatment: To figure out [...] abx treatment in 2015) who presented to [facility] with dyspnea, lightheadedness and chest pressure. ??Plan is for NENO tomorrow. Pt is independent with no home care needs identified. Plan: DC home/ Self care A member of the Care Management team will continue to monitor progress, follow for continuity of care and assist with transition of care planning. Corazon Allen RN Pager: [phone] * Consult Note - Danuta Kerr RN - 07/28/2018 9:47 AM EDT [facility] RESPONSE TEAM NOTE Name: Agata Flores Age: 72 y.o. Sex; Male Date of : 1945 Responding Members: Patt Kerr RN, Carmen Goetz RCP, Karen Martin RCP, Cindy LAY Date/Time of Admission: 07/26/2018 11:01 AM Unit/Room: [facility] Service: Cardiology Time Activated: 08 Time Arrived: 0834 Time at bedside: 60 minutes Indication for Consult: LOC ASSESSMENT/INTERVENTION Brief 24 hr history: Cary gamboa received at 0831. On arrival to room, Mr. Flores found supine onbathroom floor, wedged against wall. He was awake, in care of several 4E RN's and COIL PLACER. No compressions had been administered. He had regular respirations, palp radial, appropriate verbal responses. Skin cool, pale quality, wet (from shower vs diaphoresis). Unprotected fall from toilet confirmed by patient and COIL PLACER; CTLS precautions initiated. Per patient report, he had become dizzy at end of hisshower, had seated self on toilet and pulled cord in bathroom for assist. COIL PLACER responded, left to obtain additional assist and on return found Mr. Flores on bathroom floor. Concern for initial status pr ompted Code Blue activation. Per report, likely full LOC as patient stated I sat on the toilet andthe next I knew I was on the floor. LOC described as brief, self resolving. site monitor had been disconnected for Mr. Flores [...] DANUTA KERR RN, * Consult Note - Migeul De Los Santos PA - 07/27/2018 2:04 PM EDT Inpatient Cardiac Electrophysiology Consult Note Date of Consultation: 07/27/2018 Admit Date: 07/26/2018 Place of Service: Inpatient Unit Responsible Attending: Alvaro Maki MD Reason for Consult: We are seeing Agata Floers at the request of Dr. Mahmood for [...] x2, distal LCx x2, ramus x1 at [facility]), HTN and HLD. His cardiac enzymes remained negative and his EKGs were not suggestive of ischemia. He was transferred to [facility] for cardiac catheterization which revealed non-obstructive CAD. [...] Pertinent Medications: Current Facility-Administered Medications Ordered in [facility] Medication Dose Route Frequency Provider Last Rate Last Dose ??? sodium chloride 0.9% infusion 100 mL/hr Intravenous Continuous Darion Machado MD 100 mL/hr at 07/27/18 1142 100 mL/hr at 07/27/18 1142 ??? rivaroxaban (XARELTO) tablet 20 mg 20 mg Oral Daily with dinner Kathya Deonna T, PLATFORM MAN ??? metoprolol tartrate (LOPRESSOR) tablet 25 mg 25 mg Oral Q6H POPPY Kathya, Deonna T, PLATFORM MAN 25 mg at 07/27/18 0612 ??? aspirin EC tablet 81 mg 81 mg Oral Daily Kathya, Deonna T, PLATFORM MAN 81 mg at 07/27/18 0811 ??? nitroGLYcerin (NITROSTAT) SL tablet 0.4 mg 0.4 mg Sublingual Q5 Min PRN Kathya, Deonna T, PLATFORM MAN ??? acetaminophen (TYLENOL) tablet 650 mg 650 mg Oral Q4H PRN Kathya, Deonan T, PLATFORM MAN ??? brimonidine (ALPHAGAN) 0.2 % ophthalmic solution 1 drop 1 drop Both Eyes BID Kathya, Deonna T,PLATFORM MAN 1 drop at 07/27/18 0811 And ??? timolol (TIMOPTIC) 0.5 % ophthalmic solution 1 drop 1 drop Both Eyes BID Kathya, Deonna T, PLATFORM MAN 1 drop at 07/27/18 0811 ??? rosuvastatin (CRESTOR) tablet 10 mg 10 mg Oral QPM Kathya, Deonna T, PLATFORM MAN 10 mg at 07/26/18 1636 No current [facility]-ordered outpatient prescriptions on file. Family History: [facility], lives with in [facility]. Physical Exam: Vital signs: Last value [...] 12 lead EK07/27/2018 Atrial fibrillation @ 75; MO 166; QRs 76; QTc 426ms Assessment: Agata [...] to follow patient. Provider: GAGE Aldridge Provider#: [id number] Consult attending physician: Alvaro Maki MD EP Consult positional pager #[phone](EPMA) EP Device interrogation positional pager # [phone] Associated attestation - Fred Maki MD - 07/27/2018 8:08 PM EDT Cardiac Electrophysiology Attending Addendum: The patient was seen, interviewed and examined by me. Pertinent data and results reviewed. Miguel ALMONTE's note above was reviewed by me and agreed with. Specifically, the pertinent diagnoses andrecommendations were discussed with me. Fred Maki MD, PhD, [facility] Cardiac Electrophysiology * Plan of Care - [...] further details. Deonna Rasheed APRN 07/26/2018 Pager [phone] documented in this encounter Plan of Treatment Upcoming Encounters Date Type Department Care Team (Late st Contact Info) Description 09/08/2024 9:40 AM EDT Office Visit Cardiology at [address] [place] [address] Gonzales Torres MD [facility] [address] Pending Results Name Type Priority Associated Diagnoses [...] 11:14 AM EDT Chest pain, unspecified type TIER OVER SCAN 07/26/2018 12:00 AM EDT documented in this encounter Results * EKG 12 Lead (08/01/2018 11:02 AM EDT) Pathologist [facility] Ventricular rate 52 BPM MUSE SYSTEM Atrial Rate 53 BPM MUSE SYSTEM QRS Duration 76 ms MUSE SYSTEM Q-T Interval 482 ms MUSE SYSTEM QTC Calculated (Bezet) 448 ms MUSE SYSTEM Calculated P [place] 62 degrees MUSE SYSTEM Calculated R [place] 24 degrees MUSE SYSTEM Calculated T [place] 121 degrees MUSE SYSTEM INTERPRETATION Sinus bradycardia [...] Differential, Automated (08/01/2018 3:35 AM EDT) Pathologist [facility] Neutrophil % 38.8 % [facility] Neutrophil Absolute 5.48 1.70 - 6.10 x10(3)/mc L [facility] Lymph % 15.9 % [facility] Lymphocytes Abs 2.2 0.9 - 3.2 x10(3)/mc L [facility] Monocyte % 7.1 % [facility] Monocyte Abs 1.0(H) 0.3 - 0.9 x10(3)/[facility] Eos % 37.5 % [facility] Eosinophils Abs 5.3(H) 0.0 - 0.4 x10(3)/[facility] Basophil % 0.5 % [facility] Baso Absolute 0.1 0.0 - 0.1 x10(3)/[facility] Immature Gran % 0.20 % [facility] Comment: Immature granulocytes(IG's)percentage and absolute count will include metamyelocytes, myelocytes, and promyelocytes. Blood smears from CBCs yielding IG's will be scanned manually for concordance. If this scan disagrees with the automated IG or if promyelocytes are noted, a manual differential will be performed. Immature Gran Absolute 0.03 0.00 - 0.04 x10(3)/[facility] Blood specimen (specimen) 08/01/2018 3:35 AM EDT 08/01/2018 3:56 AM EDT Narrative Resulting Agency Comment Spec In Lab Elena Hooks APRN HEMATOLOGY ORDERABLE S Performing Organization Address City/State/[facility] Co de Phone Number [facility] [place] [address] * (ABNORMAL) Hemogram (08/01/2018 3:35 AM EDT) White Blood Cell 14.1(H) 4.0 - 9.5 x10(3)/[facility] Red Blood Cell 4.27(L) 4.58 - 5.54 x10(6)/[facility] Hemoglobin 13.9 13.7 - 16.5 gm/dL [facility] Hematocrit 38.9(L) 40.5 - 48.5 % [facility] Mean Cell Volume 91.1 82.9 - 93.1 fL [facility] Mean Cell Hemoglobin 32.6(H) 27.5 - 32.1 pg [facility] Mean Cell Hemoglobin Concentration 35.7 32.0 - 35.7 gm/dL [facility] Platelet 198 145 - 357 x10(3)/mc L [facility] RDW Standard Deviation 41.2 36.0 - 45.0 fL [facility] RDW coefficient of variation 12.6 11.4 - 13.8 % [facility] Mean Platelet Volume 11.3 7.6 - 12.9 [facility] NRBC% auto 0.0 % [facility] NRBC Absolute 0.000 0.000 - 0.000 x10(3)/mc L [facility] Blood specimen (specimen) 08/01/2018 3:35 AM EDT 08/01/2018 3:56 AM EDT Narrative Resulting Agency Comment Spec In Lab Elena Hooks APRN HEMATOLOGY ORDERABLE S [facility] [place] [address] * (ABNORMAL) BMP w/fasting Glucose (08/01/2018 3:35 AM EDT) Glucose Fasting 110(H) 65 - 99 mg/dL [facility] [...] of Diabetes Mellitus, Position Statement from the [place] [employer]. ??Diabetes Care, Volume 33, Supplement 1, Dec 2009 Blood Urea Nitrogen 22(H) 10 - 20 mg/dL [facility] Creatinine 0.79(L) 0.80 - 1.50 mg/dL [facility] Sodium 137 135 - 145 mmol/L [facility] Potassium 4.4 3.5 - 5.0 mmol/L [facility] Comment: Please note: ??Patients with WBC >100,000 may have falsely elevated Potassium levels. ??For accurate Potassium quantification in these patients send serum separator tube (gold top) for subsequent determinations. ??Contact the Clinical Chemistry Laboratory if there are any questions. Chloride 102 98 - 107 mmol/L [facility] Carbon Dioxide 25 22 - 31 mmol/L [facility] Anion Gap 10 5 - 15 mmol/L [facility] Calcium 9.4 8.5 - 10.5 mg/dL [facility] Est Glomerular Filtration Rate 90 >=60 mL/min/1. 73 m?? [facility] Comment: The eGFR was calculated using the CKD-EPI equation. As with all creatinine based estimates of kidney function, eGFR values calculated with the CKD-EPI equation are not accurate in patients with acute kidney failure, extremes of body mass or the acutely ill. [email or web address] eGFR 104 >=60 mL/min/1. 73 m?? [facility] Comment: The eGFR was calculated using the CKD-EPI equation. As with all creatinine based estimates of kidney function, eGFR values calculated with the CKD-EPI equation are not accurate in patients with acute kidney failure, extremes of body mass or the acutely ill. [email or web address] Blood specimen (specimen) 08/01/2018 3:35 AM EDT 08/01/2018 3:56 AM EDT Narrative Resulting Agency Comment Spec In Lab Elena Hooks APRN CHEMISTRY ORDERABLES [facility] [place] [id number] * EKG 12 Lead (08/01/2018 12:00 AM EDT) Ventricular rate 58 BPM MUSE SYSTEM Atrial Rate 58 BPM MUSE SYSTEM P-R Interval 158 ms MUSE SYSTEM QRS Duration 82 ms MUSE SYSTEM Q-T Interval 530 ms MUSE SYSTEM QTC Calculated (Bezet) 520 ms MUSE SYSTEM Calculated P [place] 74 degrees MUSE SYSTEM Calculated R [place] 45 degrees MUSE SYSTEM Calculated T [place] 97 degrees MUSE SYSTEM INTERPRETATION Sinus bradycardia [...] Hooks APRN ECG ORDERABLES Performing Organization Address [facility] de Phone Number MUSE SYSTEM * EKG 12 Lead (07/31/2018 2:14 PM EDT) Ventricular rate 56 BPM MUSE SYSTEM Atrial Rate 56 BPM MUSE SYSTEM P-R Interval 162 ms MUSE SYSTEM QRS Duration 76 ms MUSE SYSTEM Q-T Interval 482 ms MUSE SYSTEM QTC Calculated (Bezet) 465 ms MUSE SYSTEM Calculated P [place] 70 degrees MUSE SYSTEM Calculated R [place] 17 degrees MUSE SYSTEM Calculated T [place] 134 degrees MUSE SYSTEM INTERPRETATION Sinus bradycardia [...] Hooks APRN ECG ORDERABLES Performing Organization Address [facility] Co de Phone Number MUSE SYSTEM * EKG 12 Lead (07/31/2018 8:32 AM EDT) Ventricular rate 54 BPM MUSE SYSTEM Atrial Rate 54 BPM MUSE SYSTEM P-R Interval 160 ms MUSE SYSTEM QRS Duration 78 ms MUSE SYSTEM Q-T Interval 498 ms MUSE SYSTEM QTC Calculated (Bezet) 472 ms MUSE SYSTEM Calculated P [place] 67 degrees MUSE SYSTEM Calculated R [place] 12 degrees MUSE SYSTEM Calculated T [place] 128 degrees MUSE SYSTEM INTERPRETATION Sinus bradycardia with marked sinus arrhythmia Low voltage QRS Nonspecific T wave abnormality Prolonged QT Abnormal ECG When compared with ECG of 31-JUL-2018 07:44, No significant change was found Confirmed by Denys Miller MD ([id number]) on 07/31/2018 5:01:20 PM MUSE SYSTEM 07/31/2018 8:32 AM EDT 07/31/2018 5:01 PM EDT Ant Suarez MD ECG ORDERABLES Performing Organization Address [facility] Phone Number MUSE SYSTEM * EKG 12 Lead (07/31/2018 7:44 AM EDT) Ventricular rate 56 BPM MUSE SYSTEM Atrial Rate 56 BPM MUSE SYSTEM P-R Interval 164 ms MUSE SYSTEM QRS Duration 84 ms MUSE SYSTEM Q-T Interval 494 ms MUSE SYSTEM QTC Calculated (Bezet) 476 ms MUSE SYSTEM Calculated P [place] 71 degrees MUSE SYSTEM Calculated R [place] 15 degrees MUSE SYSTEM Calculated T [place] 127 degrees MUSE SYSTEM INTERPRETATION Sinus bradycardia [...] Hooks APRN ECG ORDERABLES Performing Organization Address [facility] Co de Phone Number MUSE SYSTEM * (ABNORMAL) Differential, Automated (07/31/2018 6:33 AM EDT) Neutrophil % 39.3 % [facility] Neutrophil Absolute 5.61 1.70 - 6.10 x10(3)/[facility] Lymph % 13.7 % [facility] Lymphocytes Abs 2.0 0.9 - 3.2 x10(3)/[facility] Monocyte % 7.4 % [facility] Monocyte Abs 1.0(H) 0.3 - 0.9 x10(3)/[facility] Eos % 38.8 % [facility] Eosinophils Abs 5.5(H) 0.0 - 0.4 x10(3)/[facility] Basophil % 0.6 % [facility] Baso Absolute 0.1 0.0 - 0.1 x10(3)/[facility] Immature Gran % 0.20 % [facility] Comment: Immature granulocytes(IG's)percentage and absolute count will include metamyelocytes, myelocytes, and promyelocytes. Blood smears from CBCs yielding IG's will be scanned manually for concordance. If this scan disagrees with the automated IG or if promyelocytes are noted, a manual differential will be performed. Immature Gran Absolute 0.03 0.00 - 0.04 x10(3)/[facility] Blood specimen (specimen) 07/31/2018 6:33 AM EDT 07/31/2018 6:52 AM EDT Narrative Resulting Agency Comment Spec In Lab Elena Hooks APRN HEMATOLOGY ORDERABLE S [facility] [place] [address] * (ABNORMAL) Hemogram (07/31/2018 6:33 AM EDT) White Blood Cell 14.3(H) 4.0 - 9.5 x10(3)/[facility] Red Blood Cell 4.92 4.58 - 5.54 x10(6)/[facility] Hemoglobin 15.8 13.7 - 16.5 gm/dL [facility] Hematocrit 45.2 40.5 - 48.5 % [facility] Mean Cell Volume 91.9 82.9 - 93.1 [facility] Mean Cell Hemoglobin 32.1 27.5 - 32.1 pg [facility] Mean Cell Hemoglobin Concentration 35.0 32.0 - 35.7 gm/dL [facility] Platelet 183 145 - 357 x10(3)/mc L [facility] RDW Standard Deviation 42.5 36.0 - 45.0 [facility] RDW coefficient of variation 12.6 11.4 - 13.8 % [facility] Mean Platelet Volume 11.0 7.6 - 12.9 [facility] NRBC% auto 0.0 % [facility] NRBC Absolute 0.000 0.000 - 0.000 x10(3)/mc L [facility] Blood specimen (specimen) 07/31/2018 6:33 AM EDT 07/31/2018 6:52 AM EDT Narrative Resulting Agency Comment Spec In Lab Elena Hooks APRN HEMATOLOGY ORDERABLE S [facility] [place] [address] * (ABNORMAL) BMP w/fasting Glucose (07/31/2018 6:33 AM EDT) Glucose Fasting 107(H) 65 - 99 mg/dL [facility] [...] of Diabetes Mellitus, Position Statement from the [place] [employer]. ??Diabetes Care, Volume 33, Supplement 1, Dec 2009 Blood Urea Nitrogen 22(H) 10 - 20 mg/dL [facility] Creatinine 0.75(L) 0.80 - 1.50 mg/dL [facility] Sodium 140 135 - 145 mmol/L [facility] Potassium 4.3 3.5 - 5.0 mmol/L [facility] Comment: Please note: ??Patients with WBC >100,000 may have falsely elevated Potassium levels. ??For accurate Potassium quantification in these patients send serum separator tube (gold top) for subsequent determinations. ??Contact the Clinical Chemistry Laboratory if there are any questions. Chloride 100 98 - 107 mmol/L [facility] Carbon Dioxide 27 22 - 31 mmol/L [facility] Anion Gap 13 5 - 15 mmol/L [facility] Calcium 9.6 8.5 - 10.5 mg/dL [facility] Est Glomerular Filtration Rate 92 >=60 mL/min/1. 73 m?? [facility] Comment: The eGFR was calculated using the CKD-EPI equation. As with all creatinine based estimates of kidney function, eGFR values calculated with the CKD-EPI equation are not accurate in patients with acute kidney failure, extremes of body mass or the acutely ill. [email or web address] eGFR 106 >=60 mL/min/1. 73 m?? [facility] Comment: The eGFR was calculated using the CKD-EPI equation. As with all creatinine based estimates of kidney function, eGFR values calculated with the CKD-EPI equation are not accurate in patients with acute kidney failure, extremes of body mass or the acutely ill. [email or web address] Blood specimen (specimen) 07/31/2018 6:33 AM EDT 07/31/2018 6:52 AM EDT Narrative Resulting Agency Comment Spec In Lab Elena Hooks PLATFORM MAN CHEMISTRY ORDERABLES Performing Organization Address City/[facility]/ZIP Co de Phone Number [facility] [place] [address] * EKG 12 Lead (07/31/2018 12:17 AM EDT) Ventricular rate 68 BPM MUSE SYSTEM Atrial Rate 68 BPM MUSE SYSTEM P-R Interval 176 ms MUSE SYSTEM QRS Duration 74 ms MUSE SYSTEM Q-T Interval 490 ms MUSE SYSTEM QTC Calculated (Bezet) 521 ms MUSE SYSTEM Calculated P [place] 80 degrees MUSE SYSTEM Calculated R [place] 22 degrees MUSE SYSTEM Calculated T [place] 73 degrees MUSE SYSTEM INTERPRETATION Sinus rhythm Occasional Premature ventricular complexes Low voltage QRS T wave abnormality, consider anterior ischemia Prolonged QT Abnormal ECG When compared with ECG of 30-JUL-2018 12:36, T wave inversion no longer evident in Lateral leads Confirmed by Denys Miller MD ([id number]) on 07/31/2018 3:59:20 PM MUSE SYSTEM 07/31/2018 12:1 7 AM EDT 07/31/2018 3:59 PM EDT Elena Hooks PLATFORM MAN ECG ORDERABLES Performing Organization Address City/[facility]/ZIP Co de Phone Number MUSE SYSTEM * EKG 12 Lead (07/30/2018 12:36 PM EDT) Ventricular rate 58 BPM MUSE SYSTEM Atrial Rate 58 BPM MUSE SYSTEM P-R Interval 170 ms MUSE SYSTEM QRS Duration 74 ms MUSE SYSTEM Q-T Interval 490 ms MUSE SYSTEM QTC Calculated (Bezet) 481 ms MUSE SYSTEM Calculated P [place] 73 degrees MUSE SYSTEM Calculated R [place] 20 degrees MUSE SYSTEM Calculated T [place] 149 degrees MUSE SYSTEM INTERPRETATION Sinus bradycardia [...] (arteriosclerotic cardiovascular disease) ??PCI in 2005 at [facility]: stents to LAD x2, LCx x2, [...] (Bezet) 522 ms MUSE SYSTEM Calculated R [place] 21 degrees MUSE SYSTEM Calculated T [place] -141 degrees MUSE SYSTEM INTERPRETATION Atrial flutter with variable A-V block Abnormal ECG When compared with ECG of 30-JUL-2018 07:34, No significant change was found Confirmed by MD PAT, KURTIS ([id number]) on 07/30/2018 4:46:36 PM MUSE SYSTEM 07/30/2018 10:0 4 AM EDT 07/30/2018 4:46 PM EDT Elena Hooks JOSE ECG ORDERABLES Performing Organization Address [facility] Co de Phone Number MUSE SYSTEM * EKG 12 Lead (07/30/2018 7:34 AM EDT) Ventricular rate 90 BPM MUSE SYSTEM Atrial Rate 90 BPM MUSE SYSTEM QRS Duration 74 ms MUSE SYSTEM Q-T Interval 392 ms MUSE SYSTEM QTC Calculated (Bezet) 479 ms MUSE SYSTEM Calculated R [place] 22 degrees MUSE SYSTEM Calculated T [place] 107 degrees MUSE SYSTEM INTERPRETATION Atrial flutter [...] Hooks APRN ECG ORDERABLES Performing Organization Address [facility] de Phone Number MUSE SYSTEM * (ABNORMAL) Differential, Automated (07/30/2018 4:06 AM EDT) Neutrophil % 57.5 % [facility] Neutrophil Absolute 9.87(H) 1.70 - 6.10 x10(3)/mc L [facility] Lymph % 11.4 % [facility] Lymphocytes Abs 2.0 0.9 - 3.2 x10(3)/mc L [facility] Monocyte % 7.5 % [facility] Monocyte Abs 1.3(H) 0.3 - 0.9 x10(3)/[facility] Eos % 23.0 % [facility] Eosinophils Abs 4.0(H) 0.0 - 0.4 x10(3)/[facility] Basophil % 0.3 % [facility] Baso Absolute 0.0 0.0 - 0.1 x10(3)/[facility] Immature Gran % 0.30 % [facility] Comment: Immature granulocytes(IG's)percentage and absolute count will include metamyelocytes, myelocytes, and promyelocytes. Blood smears from CBCs yielding IG's will be scanned manually for concordance. If this scan disagrees with the automated IG or if promyelocytes are noted, a manual differential will be performed. Immature Gran Absolute 0.06(H) 0.00 - 0.04 x10(3)/[facility] Blood specimen (specimen) 07/30/2018 4:06 AM EDT 07/30/2018 4:38 AM EDT Narrative Resulting Agency Comment Spec In Lab Deonna Rasheed PLATFORM MAN HEMATOLOGY ORDERAB LES [facility] [place] [address] * (ABNORMAL) Hemogram (07/30/2018 4:06 AM EDT) White Blood Cell 17.2(H) 4.0 - 9.5 x10(3)/[facility] Red Blood Cell 4.75 4.58 - 5.54 x10(6)/[facility] Hemoglobin 15.0 13.7 - 16.5 gm/dL [facility] Hematocrit 43.5 40.5 - 48.5 % [facility] Mean Cell Volume 91.6 82.9 - 93.1 fL [facility] Mean Cell Hemoglobin 31.6 27.5 - 32.1 pg [facility] Mean Cell Hemoglobin Concentration 34.5 32.0 - 35.7 gm/dL [facility] Platelet 197 145 - 357 x10(3)/mc L [facility] RDW Standard Deviation 42.6 36.0 - 45.0 fL [facility] RDW coefficient of variation 12.8 11.4 - 13.8 % [facility] Mean Platelet Volume 10.9 7.6 - 12.9 fL [facility] NRBC% auto 0.0 % [facility] NRBC Absolute 0.000 0.000 - 0.000 x10(3)/mc L [facility] Blood specimen (specimen) 07/30/2018 4:06 AM EDT 07/30/2018 4:38 AM EDT Narrative Resulting Agency Comment Spec In Lab Deonna Rasheed PLATFORM MAN HEMATOLOGY ORDERAB LES Performing Organization Address [facility]/ZIP Co de Phone Number [facility] [place] [address] * Magnesium (07/30/2018 4:06 AM EDT) Magnesium 0.83 0.69 - 1.07 mmol/L [facility] Blood specimen (specimen) 07/30/2018 4:06 AM EDT 07/30/2018 4:38 AM EDT Narrative Resulting Agency Comment Spec In Lab Deonna Rasheed PLATFORM MAN CHEMISTRY ORDERABL ES Performing Organization Address [facility] Co de Phone Number [facility] [place] [address] * (ABNORMAL) BMP w/fasting Glucose (07/30/2018 4:06 AM EDT) Glucose Fasting 110(H) 65 - 99 mg/dL [facility] [...] of Diabetes Mellitus, Position Statement from the [place] [employer]. ??Diabetes Care, Volume 33, Supplement 1, Dec 2009 Blood Urea Nitrogen 19 10 - 20 mg/dL [facility] Creatinine 0.81 0.80 - 1.50 mg/dL [facility] Sodium 138 135 - 145 mmol/L [facility] Potassium 4.1 3.5 - 5.0 mmol/L [facility] Comment: Please note: ??Patients with WBC >100,000 may have falsely elevated Potassium levels. ??For accurate Potassium quantification in these patients send serum separator tube (gold top) for subsequent determinations. ??Contact the Clinical Chemistry Laboratory if there are any questions. Chloride 101 98 - 107 mmol/L [facility] Carbon Dioxide 24 22 - 31 mmol/L [facility] Anion Gap 13 5 - 15 mmol/L [facility] Calcium 9.3 8.5 - 10.5 mg/dL [facility] Est Glomerular Filtration Rate 89 >=60 mL/min/1. 73 m?? [facility] Comment: The eGFR was calculated using the CKD-EPI equation. As with all creatinine based estimates of kidney function, eGFR values calculated with the CKD-EPI equation are not accurate in patients with acute kidney failure, extremes of body mass or the acutely ill. [email or web address]://[email or web address] eGFR 103 >=60 mL/min/1. 73 m?? [facility] Comment: The eGFR was calculated using the CKD-EPI equation. As with all creatinine based estimates of kidney function, eGFR values calculated with the CKD-EPI equation are not accurate in patients with acute kidney failure, extremes of body mass or the acutely ill. [email or web address] Blood specimen (specimen) 07/30/2018 4:06 AM EDT 07/30/2018 4:38 AM EDT Narrative Resulting Agency Comment Spec In Lab Deonna T Kathya PLATFORM MAN CHEMISTRY ORDERABL ES Performing Organization Address [facility] Co de Phone Number [facility] [place] [address] * EKG 12 Lead (07/29/2018 11:04 PM EDT) Ventricular rate 101 BPM MUSE SYSTEM Atrial Rate 104 BPM MUSE SYSTEM P-R Interval 176 ms MUSE SYSTEM QRS Duration 78 ms MUSE SYSTEM Q-T Interval 380 ms MUSE SYSTEM QTC Calculated (Bezet) 492 ms MUSE SYSTEM Calculated P [place] 106 degrees MUSE SYSTEM Calculated R [place] 26 degrees MUSE SYSTEM Calculated T [place] 167 degrees MUSE SYSTEM INTERPRETATION Probable Atrial flutter with variable A-V block PVCs vs abbarrently conducted supraventricular beats Abnormal ECG When compared with ECG of 29-JUL-2018 07:21, No significant change was found Confirmed by MD PAT, KURTIS ([id number]) on 07/30/2018 4:45:35 PM MUSE SYSTEM 07/29/2018 11:0 4 PM EDT 07/30/2018 4:45 PM EDT Deonna T Kathya PLATFORM MAN ECG ORDERABLES Performing Organization Address [facility] de Phone Number MUSE SYSTEM * NENO W LMTD SPECTRAL DOPPLER COLOR DOPPLER (07/29/2018 3:33 PM EDT) EF 65 HEARTLAB SYSTEM Anatomical Region Laterality Modality Other 07/29/2018 Narrative 07/29/2018 3:51 PM EDT Procedure: ?Transesophageal Echocardiogram Patient: ?YOAN Haines ?(Age): 1945(72y) Med Rec#: ? [id number] ?Sex: ?M ? [place] Loc[place] ? [facility] [place]Ht / Wt: ??188(cm)/97(kg) Pt. Loc: ?Display Card Writer ?BSA: ?2.24 Study Date: ?? 07/29/2018 ?Pt. Type: Tape: ? Referring: CLAUDIA JONES Reading: Ant Suarez ([id number]) Rectifier Operator: Tricia Donis ([id number]) Interpreting Fellow: Tricia Donis ([id number]) Diagnosis: *Unspecified atrial fibrillation (I48.91) Rhythm: ? [...] under the supervision of Dr. Suarez. ?The [facility] Echo Lab protocols for NENO procedures in [...] 07/29/2018 15:50:44 Images reviewed and interpretation verified [facility] Procedure Note Ant Suarez MD - 07/29/2018 Procedure: Transesophageal Echocardiogram Patient: YOAN AVELAR(Age): 1945(72y) Med Rec#: [id number] Sex: M Site Loc: [facility] Ht / Wt: 188(cm)/97(kg) Pt. Loc: Display Card Writer BSA: 2.24 Study Date: 07/29/2018 Pt. Type: Tape: Referring: CLAUDIA JONES Reading: Ant Suarez ([id number]) Rectifier Operator: Tricia Donis ([id number]) Interpreting Fellow: Tricia Donis ([id number]) Diagnosis: *Unspecified atrial fibrillation (I48.91) Rhythm: A-Fib [...] under the supervision of Dr. Suarez. The [facility] Echo Lab protocols for NNEO procedures in the Echo Lab and Topical [...] 07/29/2018 15:50:44 Images reviewed and interpretation verified [facility] Deonna Rasheed APRN ECHO ORDERABLES * Urine Hold (07/29/2018 1:38 PM EDT) Hold, Urine Sample in lab. [facility] Urine specimen (specimen) Urine / Unknown 07/29/2018 1:38 PM EDT 07/29/2018 2:45 PM EDT Elena Hooks APRN URINE ORDERABLES [facility] [place] [address] * Urinalysis with reflex Culture (07/29/2018 1:38 PM EDT) Glucose, Urine Dipstick Negative Negative mg/dL [facility] Protein, Urine Dipstick Negative Negative mg/dL [facility] Bilirubin, Urine Dipstick Negative Negative mg/dL [facility] Comment: Clinical correlation required for positive Urine Bilirubin results as false positive may occur with some drugs and drug related products. If a false positive is suspected a serum total bilirubin should be considered if clinically indicated. Urobilinogen, Urine Dipstick Normal Normal mg/dL [facility] pH, Urn (dipstick) 5.0 5.0 - 8.0 [facility] Blood, Urine Dipstick Negative Negative mg/dL [facility] Ketone, Urine Dipstick Negative Negative mg/dL [facility] Nitrite, Urine Dipstick Negative Negative [facility] Leukocytes, Urine Dipstick Negative Negative mcL [facility] Appearance, Urine Dipstick Clear Clear [facility] Specific [place] Urine Automated 1.020 1.002 - 1.030 [facility] Color, Urine Dipstick Yellow Yellow [facility] Reflex to Culture No [facility] Urine specimen obtained by clean catch procedure (specimen) 07/29/2018 1:38 PM EDT 07/29/2018 2:45 PM EDT Narrative Resulting Agency Comment Spec In Lab Elena Hooks APRN URINE ORDERABLES [facility] [place] [id number] * EKG 12 Lead (07/29/2018 7:21 AM EDT) Ventricular rate 84 BPM MUSE SYSTEM Atrial Rate 375 BPM MUSE SYSTEM QRS Duration 72 ms MUSE SYSTEM Q-T Interval 400 ms MUSE SYSTEM QTC Calculated (Bezet) 472 ms MUSE SYSTEM Calculated R [place] 9 degrees MUSE SYSTEM Calculated T [place] 10 degrees MUSE SYSTEM INTERPRETATION Atrial fibrillation Abnormal ECG When compared with ECG of 28-JUL-2018 08:44, (unconfirmed) No significant change was found I personally reviewed the tracing and edited the fellows interpretation Confirmed by fellow MD Korin, Gregorio ([id number]) on 07/29/2018 2:47:56 PM Confirmed by MD Colton, Humble White ([id number]) on 07/29/2018 4:42:19 PM MUSE SYSTEM 07/29/2018 7:21 AM EDT 07/29/2018 4:42 PM EDT Deonna Ordoñezr PLATFORM MAN ECG ORDERABLES MUSE SYSTEM * (ABNORMAL) Differential, Automated (07/29/2018 5:17 AM EDT) Neutrophil % 50.1 % [facility] Neutrophil Absolute 7.84(H) 1.70 - 6.10 x10(3)/[facility] Lymph % 11.6 % [facility] Lymphocytes Abs 1.8 0.9 - 3.2 x10(3)/[facility] Monocyte % 6.9 % [facility] Monocyte Abs 1.1(H) 0.3 - 0.9 x10(3)/[facility] [facility] Eos % 30.7 % [facility] Eosinophils Abs 4.8(H) 0.0 - 0.4 x10(3)/[facility] Basophil % 0.3 % [facility] Baso Absolute 0.0 0.0 - 0.1 x10(3)/[facility] Immature Gran % 0.40 % [facility] Comment: Immature granulocytes(IG's)percentage and absolute count will include metamyelocytes, myelocytes, and promyelocytes. Blood smears from CBCs yielding IG's will be scanned manually for concordance. If this scan disagrees with the automated IG or if promyelocytes are noted, a manual differential will be performed. Immature Gran Absolute 0.06(H) 0.00 - 0.04 x10(3)/ L [facility] Blood specimen (specimen) 07/29/2018 5:17 AM EDT 07/29/2018 5:44 AM EDT Narrative Resulting Agency Comment Spec In Lab Deonna Ordoñezr PLATFORM MAN HEMATOLOGY ORDERAB LES [facility] [place] [address] * (ABNORMAL) Hemogram (07/29/2018 5:17 AM EDT) White Blood Cell 15.6(H) 4.0 - 9.5 x10(3)/[facility] Red Blood Cell 4.93 4.58 - 5.54 x10(6)/ L [facility] Hemoglobin 15.7 13.7 - 16.5 gm/dL [facility] Hematocrit 45.2 40.5 - 48.5 % [facility] Mean Cell Volume 91.7 82.9 - 93.1 fL [facility] Mean Cell Hemoglobin 31.8 27.5 - 32.1 pg [facility] Mean Cell Hemoglobin Concentration 34.7 32.0 - 35.7 gm/dL [facility] Platelet 208 145 - 357 x10(3)/[facility] RDW Standard Deviation 42.3 36.0 - 45.0 [facility] RDW coefficient of variation 12.7 11.4 - 13.8 % [facility] Mean Platelet Volume 11.1 7.6 - 12.9 fL [facility] NRBC% auto 0.0 % [facility] NRBC Absolute 0.000 0.000 - 0.000 x10(3)/[facility] Blood specimen (specimen) 07/29/2018 5:17 AM EDT 07/29/2018 5:44 AM EDT Narrative Resulting Agency Comment Spec In Lab Deonna Rasheed PLATFORM MAN HEMATOLOGY ORDERAB LES [facility] [place] [address] * Magnesium (07/29/2018 5:17 AM EDT) Magnesium 0.85 0.69 - 1.07 mmol/L [facility] Blood specimen (specimen) 07/29/2018 5:17 AM EDT 07/29/2018 5:44 AM EDT Narrative Resulting Agency Comment Spec In Lab Deonna Elizabeth WoodKathyaradha GARCIA CHEMISTRY ORDERABL ES [facility] [place] [address] * (ABNORMAL) BMP w/fasting Glucose (07/29/2018 5:17 AM EDT) Glucose Fasting 107(H) 65 - 99 mg/dL [facility] [...] of Diabetes Mellitus, Position Statement from the [place] [employer]. ??Diabetes Care, Volume 33, Supplement 1, Dec 2009 Blood Urea Nitrogen 20 10 - 20 mg/dL [facility] Creatinine 0.86 0.80 - 1.50 mg/dL [facility] Sodium 139 135 - 145 mmol/L [facility] Potassium 4.3 3.5 - 5.0 mmol/L [facility] Comment: Please note: ??Patients with WBC >100,000 may have falsely elevated Potassium levels. ??For accurate Potassium quantification in these patients send serum separator tube (gold top) for subsequent determinations. ??Contact the Clinical Chemistry Laboratory if there are any questions. Chloride 102 98 - 107 mmol/L [facility] Carbon Dioxide 25 22 - 31 mmol/L [facility] Anion Gap 12 5 - 15 mmol/L [facility] Calcium 9.4 8.5 - 10.5 mg/dL [facility] Est Glomerular Filtration Rate 87 >=60 mL/min/1. 73 m?? [facility] Comment: The eGFR was calculated using the CKD-EPI equation. As with all creatinine based estimates of kidney function, eGFR values calculated with the CKD-EPI equation are not accurate in patients with acute kidney failure, extremes of body mass or the acutely ill. http://[employer]/[facility] – SHAWNEEnkf eGFR 100 >=60 mL/min/1. 73 m?? [facility] Comment: The eGFR was calculated using the CKD-EPI equation. As with all creatinine based estimates of kidney function, eGFR values calculated with the CKD-EPI equation are not accurate in patients with acute kidney failure, extremes of body mass or the acutely ill. http://[employer]/DHMCnkf Blood specimen (specimen) 07/29/2018 5:17 AM EDT 07/29/2018 5:44 AM EDT Narrative Resulting Agency Comment Spec In Lab Deonna Rasheed APRN CHEMISTRY ORDERABL ES [facility] [place] [id number] * CT Cervical Spine wo Contrast (07/28/2018 [...] acute cervical spine fracture. Elena Hooks [facility] [place] * CT Head wo Contrast [...] * POCT Glucose (07/28/2018 9:12 AM EDT) [facility] Glucose, POC 191 65 - 199 mg/dL [facility] Comment: Supplemental ranges: <140 mg/dL before meals <180 mg/dL all other times of the day Blood specimen (specimen) 07/28/2018 9:12 AM EDT 07/28/2018 9:12 AM EDT Cameron Mahmood MD POINT OF CARE TEST O RDERABLES [facility] [place] [address] * EKG 12 Lead (07/28/2018 8:44 AM EDT) Ventricular rate 77 BPM MUSE SYSTEM Atrial Rate 357 BPM MUSE SYSTEM QRS Duration 76 ms MUSE SYSTEM Q-T Interval 410 ms MUSE SYSTEM QTC Calculated (Bezet) 463 ms MUSE SYSTEM Calculated R Monetta 14 degrees MUSE SYSTEM Calculated T Monetta 48 degrees MUSE SYSTEM INTERPRETATION Atrial fibrillation Abnormal ECG When compared with ECG of 28-JUL-2018 07:19, No significant change was found I personally reviewed the tracing and edited the fellows interpretation Confirmed by fellow MD Langley Daniel ([id number]) on 07/29/2018 2:53:27 PM Confirmed by MD Segura Shawn M. ([id number]) on 07/29/2018 4:42:14 PM MUSE SYSTEM 07/28/2018 8:44 AM EDT 07/29/2018 4:42 PM EDT Deonna T Kathya PLATFORM MAN ECG ORDERABLES Performing Organization Address [facility] Co de Phone Number MUSE SYSTEM * EKG 12 Lead (07/28/2018 7:19 AM EDT) Ventricular rate 81 BPM MUSE SYSTEM Atrial Rate 326 BPM MUSE SYSTEM QRS Duration 76 ms MUSE SYSTEM Q-T Interval 402 ms MUSE SYSTEM QTC Calculated (Bezet) 466 ms MUSE SYSTEM Calculated R Monetta 7 degrees MUSE SYSTEM Calculated T Monetta 63 degrees MUSE SYSTEM INTERPRETATION Atrial fibrillation Abnormal ECG When compared with ECG of 27-JUL-2018 07:24, No significant change was found I personally reviewed the tracing and edited the fellows interpretation Confirmed by fellow MD Langley Daniel ([id number]) on 07/28/2018 8:28:08 AM Confirmed by MD Segura Shawn M. ([id number]) on 07/28/2018 5:49:00 PM MUSE SYSTEM 07/28/2018 7:19 AM EDT 07/28/2018 5:49 PM EDT Deonna T Kathya PLATFORM MAN ECG ORDERABLES Performing Organization Address [facility] Co de Phone Number MUSE SYSTEM * (ABNORMAL) Differential, Automated (07/28/2018 3:54 AM EDT) Neutrophil % 41.8 % [facility] Neutrophil Absolute 6.28(H) 1.70 - 6.10 x10(3)/mc L [facility] Lymph % 13.3 % [facility] Lymphocytes Abs 2.0 0.9 - 3.2 x10(3)/ L [facility] Monocyte % 5.8 % [facility] Monocyte Abs 0.9 0.3 - 0.9 x10(3)/[facility] Eos % 38.3 % [facility] Eosinophils Abs 5.8(H) 0.0 - 0.4 x10(3)/[facility] Basophil % 0.6 % [facility] Baso Absolute 0.1 0.0 - 0.1 x10(3)/[facility] Immature Gran % 0.20 % [facility] Comment: Immature granulocytes(IG's)percentage and absolute count will include metamyelocytes, myelocytes, and promyelocytes. Blood smears from CBCs yielding IG's will be scanned manually for concordance. If this scan disagrees with the automated IG or if promyelocytes are noted, a manual differential will be performed. Immature Gran Absolute 0.03 0.00 - 0.04 x10(3)/[facility] Blood specimen (specimen) 07/28/2018 3:54 AM EDT 07/28/2018 4:10 AM EDT Narrative Resulting Agency Comment Spec In Lab Deonna Rasheed PLATFORM MAN HEMATOLOGY ORDERAB LES Performing Organization Address City/State/[facility] Co de Phone Number [facility] [place] [address] * (ABNORMAL) Hemogram (07/28/2018 3:54 AM EDT) White Blood Cell 15.0(H) 4.0 - 9.5 x10(3)/[facility] Red Blood Cell 5.08 4.58 - 5.54 x10(6)/[facility] Hemoglobin 16.3 13.7 - 16.5 gm/dL [facility] Hematocrit 46.4 40.5 - 48.5 % [facility] Mean Cell Volume 91.3 82.9 - 93.1 fL [facility] Mean Cell Hemoglobin 32.1 27.5 - 32.1 pg [facility] Mean Cell Hemoglobin Concentration 35.1 32.0 - 35.7 gm/dL [facility] Platelet 203 145 - 357 x10(3)/mc L [facility] RDW Standard Deviation 42.5 36.0 - 45.0 [facility] RDW coefficient of variation 12.6 11.4 - 13.8 % [facility] Mean Platelet Volume 11.0 7.6 - 12.9 [facility] NRBC% auto 0.0 % [facility] NRBC Absolute 0.000 0.000 - 0.000 x10(3)/mc L [facility] Blood specimen (specimen) 07/28/2018 3:54 AM EDT 07/28/2018 4:10 AM EDT Narrative Resulting Agency Comment Spec In Lab Deonna Rasheed APRN HEMATOLOGY ORDERAB LES Performing Organization Address City/[facility]/ZIP Co de Phone Number [facility] [place] [address] * Magnesium (07/28/2018 3:54 AM EDT) Magnesium 0.86 0.69 - 1.07 mmol/L [facility] Blood specimen (specimen) 07/28/2018 3:54 AM EDT 07/28/2018 4:10 AM EDT Narrative Resulting Agency Comment Spec In Lab Deonna Rasheed PLATFORM MAN CHEMISTRY ORDERABL ES Performing Organization Address City/[facility]/ZIP Co de Phone Number [facility] [place] [address] * (ABNORMAL) BMP w/fasting Glucose (07/28/2018 3:54 AM EDT) Glucose Fasting 118(H) 65 - 99 mg/dL [facility] [...] of Diabetes Mellitus, Position Statement from the [place] Diabetes [employer]. ??Diabetes Care, Volume 33, Supplement 1, Dec 2009 Blood Urea Nitrogen 19 10 - 20 mg/dL [facility] Creatinine 0.83 0.80 - 1.50 mg/dL [facility] Sodium 140 135 - 145 mmol/L [facility] Potassium 4.4 3.5 - 5.0 mmol/L [facility] [...] mmol/L [facility] Anion Gap 11 5 - 15 mmol/L [facility] Calcium 9.7 8.5 - 10.5 mg/dL [facility] Est Glomerular Filtration Rate 88 >=60 mL/min/1. 73 m?? [facility] Comment: The eGFR was calculated using the CKD-EPI equation. As with all creatinine based estimates of kidney function, eGFR values calculated with the CKD-EPI equation are not accurate in patients with acute kidney failure, extremes of body mass or the acutely ill. http://[employer]/DHMCnkf eGFR 102 >=60 mL/min/1. 73 m?? [facility] Comment: The eGFR was calculated using the CKD-EPI equation. As with all creatinine based estimates of kidney function, eGFR values calculated with the CKD-EPI equation are not accurate in patients with acute kidney failure, extremes of body mass or the acutely ill. [email or web address] Blood specimen (specimen) 07/28/2018 3:54 AM EDT 07/28/2018 4:10 AM EDT Narrative Resulting Agency Comment Spec In Lab Deonna Rasheed APRN CHEMISTRY ORDERABL ES Performing Organization Address [facility]/State/ZIP Co de Phone Number [facility] [place] [address] * CARDIAC CATHETERIZATION (07/27/2018 11:30 AM EDT) Anatomical Region Laterality Modality Other Narrative 07/27/2018 11:39 AM EDT ?[facility] ? Cardiac Catheterization/Intervention Report ? Patient Name: Agata Flores. ? Procedure Date: 07/27/2018 ? A #: [id number] ? Primary Physician: Jose D, Min W ? Case #: [id number] ? File Name: [id number] ? Catheterization Order Number: [id number] ? [facility] ? Final Report [place], [place] ? Patient Name: ? Agata Flores ?ID#: ?[id number] ? : ?1945 ? Procedure Date: ? [...] presented with: unstable angina (w/i 60 days). [place] ?Cardiovascular Society angina class was III. This [...] heart catheterization ?was performed utilizing a 7Fr Vancleave-Naila catheter. 5,000 units of heparin ?were administered. [...] Note Min Jeffery II, MD - 09/02/2018 [facility] Cardiac Catheterization/Intervention Report Patient Name: Agata Flores Procedure Date: 07/27/2018 A #: [id number] Primary Physician: Min Jeffery Case #: [id number] File Name: [id number] Catheterization Order Number: [id number] [facility] FinalReport [place], [place] Patient Name: Agata Flores ID#:[id number] :1945 Procedure Date: July 27, 2018 Case [...] presented with: unstable angina (w/i 60 days). [place] Cardiovascular Society angina class was III. This [...] Right heartcatheterization was performed utilizing a 7Fr Vancleave-Naila catheter. 5,000 units ofheparin were administered. A total of 100cc of Omnipaque were opened qpf170fl of Omnipaque were administered. Radiation: Fluoro time [...] Report Last Ammended: 09/02/2018 10:32 Deonnaelizabeth Rasheed PLATFORM MAN CARDIAC CATH ORDER PARK * ECHO COMPLETE (07/27/2018 9:12 AM EDT) EF 61 HEARTLAB SYSTEM Anatomical Region Laterality Modality Other 07/27/2018 Narrative 07/27/2018 9:27 AM EDT Procedure: ?Transthoracic Echocardiogram Patient: ?YOAN Haines ?(Age): 1945(72y) Med Rec#: ? [id number] ?Sex: ?M ? [place] [facility] ? [facility] ?Ht / Wt: ??188(cm)/99(kg) Pt. Loc: ?Adult Floor ? BSA: ?2.26 Study Date: ?? 07/27/2018 ?Pt. Type: Inpatient Tape: ? Referring: JAZMIN Reading: Gamaliel Sotelo ([id number]) Rectifier Operator: Sander Houser [facility] Diagnosis: *Chest pain, unspecified (R07.9) Indication: ?? [...] ? Mid-Inferior ?Normal ? Mid-Inferoseptal ?Normal ? Mize-Septal ? Normal ? Mize-Anterior ? Normal ? Mize-Lateral ?Normal ? Mize-Inferior ? Normal ? [place]-Tip ?Normal ? This report has been electronically signed by: Gamaliel Sotelo MD ? 07/27/2018 09:26:48 Images reviewed and interpretation verified [facility]ound [facility] Procedure Note Gamaliel Sotelo MD - 07/27/2018 Procedure: Transthoracic Echocardiogram Patient: YOAN AVELAR(Age): 1945(72y) Med Rec#: [id number] Sex: M Site Loc: [facility] Ht / Wt: 188(cm)/99(kg) Pt. Loc: Adult Floor BSA: 2.26 Study Date: 07/27/2018 Pt. Type: Inpatient Tape: Referring: JAZMIN Reading: Gamaliel Sotelo ([id number]) Rectifier Operator: Sander Houser RD Diagnosis: *Chest pain, unspecified [...] Normal Mid-Posterolateral Normal Mid-Inferior Normal Mid-Inferoseptal Normal Mize-Septal Normal Mize-Anterior Normal Mize-Lateral Normal Mize-Inferior Normal Mize-Tip Normal This report has been electronically signed by: Gamaliel Sotelo MD 07/27/2018 09:26:48 Images reviewed and interpretation verified [facility] Deonna T Kathya PLATFORM MAN ECHO ORDERABLES * EKG 12 Lead (07/27/2018 7:24 AM EDT) Pathologist [facility] Ventricular rate 75 BPM MUSE SYSTEM Atrial Rate 166 BPM MUSE SYSTEM QRS Duration 76 ms MUSE SYSTEM Q-T Interval 382 ms MUSE SYSTEM QTC Calculated (Bezet) 426 ms MUSE SYSTEM Calculated R Monetta 12 degrees MUSE SYSTEM Calculated T [place] 112 degrees MUSE SYSTEM INTERPRETATION Atrial fibrillation Abnormal ECG When compared with ECG of 26-JUL-2018 11:14, No significant change was found I personally reviewed the tracing and edited the fellows interpretation Confirmed by fellow MD Langley Daniel ([id number]) on 07/27/2018 11:57:52 AM Confirmed by Denys Miller MD ([id number]) on 07/27/2018 2:50:48 PM MUSE SYSTEM 07/27/2018 7:24 AM EDT 07/27/2018 2:50 PM EDT Deonna T Kathya PLATFORM MAN ECG ORDERABLES MUSE SYSTEM * (ABNORMAL) Differential, Automated (07/27/2018 3:46 AM EDT) Pathologist [facility] Neutrophil % 34.6 % [facility] Neutrophil Absolute 5.07 1.70 - 6.10 x10(3)/mc L [facility] Lymph % 18.7 % [facility] Lymphocytes Abs 2.7 0.9 - 3.2 x10(3)/mc L [facility] Monocyte % 5.5 % [facility] Monocyte Abs 0.8 0.3 - 0.9 x10(3)/mc L [facility] Eos % 40.5 % [facility] Eosinophils Abs 5.9(H) 0.0 - 0.4 x10(3)/mc L [facility] Basophil % 0.6 % [facility] Baso Absolute 0.1 0.0 - 0.1 x10(3)/mc L [facility] Immature Gran % 0.10 % [facility] Comment: Immature granulocytes(IG's)percentage and absolute count will include metamyelocytes, myelocytes, and promyelocytes. Blood smears from CBCs yielding IG's will be scanned manually for concordance. If this scan disagrees with the automated IG or if promyelocytes are noted, a manual differential will be performed. Immature Gran Absolute 0.02 0.00 - 0.04 x10(3)/[facility] Blood specimen (specimen) 07/27/2018 3:46 AM EDT 07/27/2018 4:06 AM EDT Narrative Resulting Agency Comment Spec In Lab Deonna Rasheed APRN HEMATOLOGY ORDERAB LES [facility] [place] [address] * (ABNORMAL) Hemogram (07/27/2018 3:46 AM EDT) White Blood Cell 14.7(H) 4.0 - 9.5 x10(3)/[facility] Red Blood Cell 4.89 4.58 - 5.54 x10(6)/[facility] Hemoglobin 15.7 13.7 - 16.5 gm/dL [facility] Hematocrit 44.4 40.5 - 48.5 % [facility] Mean Cell Volume 90.8 82.9 - 93.1 fL [facility] Mean Cell Hemoglobin 32.1 27.5 - 32.1 pg [facility] Mean Cell Hemoglobin Concentration 35.4 32.0 - 35.7 gm/dL [facility] Platelet 207 145 - 357 x10(3)/[facility] RDW Standard Deviation 41.4 36.0 - 45.0 fL [facility] RDW coefficient of variation 12.6 11.4 - 13.8 % [facility] Mean Platelet Volume 10.7 7.6 - 12.9 fL [facility] NRBC% auto 0.0 % [facility] NRBC Absolute 0.000 0.000 - 0.000 x10(3)/mc L [facility] Blood specimen (specimen) 07/27/2018 3:46 AM EDT 07/27/2018 4:06 AM EDT Narrative Resulting Agency Comment Spec In Lab Deonna Rasheed PLATFORM MAN HEMATOLOGY ORDERAB LES Performing Organization Address [facility] Co de Phone Number [facility] [place] [address] * Magnesium (07/27/2018 3:46 AM EDT) Magnesium 0.86 0.69 - 1.07 mmol/L [facility] Blood specimen (specimen) 07/27/2018 3:46 AM EDT 07/27/2018 4:06 AM EDT Narrative Resulting Agency Comment Spec In Lab Deonna Rasheed PLATFORM MAN CHEMISTRY ORDERABL ES Performing Organization Address [facility] Phone Number [facility] [place] [address] * (ABNORMAL) BMP w/fasting Glucose (07/27/2018 3:46 AM EDT) Glucose Fasting 111(H) 65 - 99 mg/dL [facility] [...] of Diabetes Mellitus, Position Statement from the [place] [employer]. ??Diabetes Care, Volume 33, Supplement 1, Dec 2009 Blood Urea Nitrogen 19 10 - 20 mg/dL [facility] Creatinine 0.89 0.80 - 1.50 mg/dL [facility] Sodium 138 135 - 145 mmol/L [facility] Potassium 4.4 3.5 - 5.0 mmol/L [facility] Comment: Please note: ??Patients with WBC >100,000 may have falsely elevated Potassium levels. ??For accurate Potassium quantification in these patients send serum separator tube (gold top) for subsequent determinations. ??Contact the Clinical Chemistry Laboratory if there are any questions. Chloride 103 98 - 107 mmol/L [facility] Carbon Dioxide 23 22 - 31 mmol/L [facility] Anion Gap 12 5 - 15 mmol/L [facility] Calcium 9.7 8.5 - 10.5 mg/dL [facility] Est Glomerular Filtration Rate 85 >=60 mL/min/1. 73 m?? [facility] Comment: The eGFR was calculated using the CKD-EPI equation. As with all creatinine based estimates of kidney function, eGFR values calculated with the CKD-EPI equation are not accurate in patients with acute kidney failure, extremes of body mass or the acutely ill. http://[employer]/DHMCnkf eGFR 99 >=60 mL/min/1. 73 m?? [facility] Comment: The eGFR was calculated using the CKD-EPI equation. As with all creatinine based estimates of kidney function, eGFR values calculated with the CKD-EPI equation are not accurate in patients with acute kidney failure, extremes of body mass or the acutely ill. http://[employer]/DHMCnkf Blood specimen (specimen) 07/27/2018 3:46 AM EDT 07/27/2018 4:06 AM EDT Narrative Resulting Agency Comment Spec In Lab Deonna Rasheed APRN CHEMISTRY ORDERABL ES [facility] [place] [address] * Cardiac Enzymes (LEB/CGP) (07/26/2018 10:30 PM EDT) [facility] Troponin-T <0.01 0.00 - 0.00 ng/mL [facility] Comment: The 99th percentile for Troponin T is less than 0.01 ng/mL, any detectable cTnT concentration using this assay should be considered elevated. According to the third universal definition of myocardial infarction the following criteria with a clinical presentation consistent with acute myocardial ischemia meets the diagnosis for a myocardial infarction ([place]). Detection of a rise and/or fall of cTnT, with at least one value greater than the 99th percentile (> or = 0.01) and with at least one of the following ?? Symptoms of ischemia ?? New or presumed new significant [id number] wave (ST-T) changes or new left bundle [...] additional sample may be indicated. Reference: Third [place] Definition of Myocardial Infarction. Journal of the [place] College [employer] 2012;60:1581-98 Creatine Kinase 23 0 - 200 unit/L [facility] Blood specimen (specimen) 07/26/2018 10:30 PM EDT 07/26/2018 11:04 PM EDT Narrative Resulting Agency Comment Spec In Lab Deonna Rasheed APRN CHEMISTRY ORDERABL ES [facility] [place] [address] * Cardiac Enzymes (LEB/CGP) (07/26/2018 4:31 PM EDT) [facility] Troponin-T <0.01 0.00 - 0.00 ng/mL [facility] Comment: The 99th percentile for Troponin T is less than 0.01 ng/mL, any detectable cTnT concentration using this assay should be considered elevated. According to the third universal definition of myocardial infarction the following criteria with a clinical presentation consistent with acute myocardial ischemia meets the diagnosis for a myocardial infarction ([place]). Detection of a rise and/or fall of cTnT, with at least one value greater than the 99th percentile (> or = 0.01) and with at least one of the following ?? Symptoms of ischemia ?? New or presumed new significant QI-xyxxrgz-A wave (ST-T) changes or new left bundle [...] additional sample may be indicated. Reference: Third Mangum Definition of Myocardial Infarction. Journal of the [place] [employer] 2012;60:1581-98 Creatine Kinase 22 0 - 200 unit/L [facility] Blood specimen (specimen) 07/26/2018 4:31 PM EDT 07/26/2018 4:48 PM EDT Narrative Resulting Agency Comment Spec In Lab Deonna Rasheed APRN CHEMISTRY ORDERABL ES [facility] [place] [address] * Hemoglobin A1c (07/26/2018 11:44 AM EDT) Hemoglobin A1c 5.6 4.3 - 5.6 % [facility] Comment: Reference Range: 4.3 - [...] Mellitus, Diabetes Care 2013; 36: Suppl. 1, S67-73 Estimated Average Glucose See note mg/dL [facility] Comment: Estimated Average Glucose not [...] into estimated average glucose values. ??Diabetes Care 2008:31(8):6854-3578. Blood specimen (specimen) Venous Draw / Unknown 07/26/2018 11:44 AM EDT 07/26/2018 12:50 PM EDT Narrative Resulting Agency Comment Spec In Lab Deonna Rasheed APRN CHEMISTRY ORDERABL ES [facility] [place] [address] * TSH (07/26/2018 11:44 AM EDT) Thyroid Stimulating Hormone 3.98 0.27 - 4.20 mlU/ML [facility] Blood specimen (specimen) Venous Draw / Unknown 07/26/2018 11:44 AM EDT 07/26/2018 11:52 AM EDT Narrative Resulting Agency Comment Spec In Lab Deonna Rasheed APRN CHEMISTRY ORDERABL ES [facility] [place] [address] * Scan, Peripheral Blood (07/26/2018 11:44 AM EDT) Pathologist [facility] Plat estimate Normal [facility] RBC Morphology Normal [facility] Blood specimen (specimen) 07/26/2018 11:44 AM EDT 07/26/2018 11:49 AM EDT Narrative Resulting Agency Comment Spec In Lab Janet ALMONTE HEMATOLOGY ORDERABLE S Performing Organization Address City/[facility]/ZIP Co de Phone Number [facility] [place] [address] * (ABNORMAL) Differential, Automated (07/26/2018 11:44 AM EDT) [facility] Neutrophil % 43.7 % [facility] Neutrophil Absolute 6.32(H) 1.70 - 6.10 x10(3)/mc L [facility] Lymph % 11.7 % [facility] Lymphocytes Abs 1.7 0.9 - 3.2 x10(3)/mc L [facility] Monocyte % 5.7 % [facility] Monocyte Abs 0.8 0.3 - 0.9 x10(3)/mc L [facility] Eos % 38.1 % [facility] Eosinophils Abs 5.5(H) 0.0 - 0.4 x10(3)/mc L [facility] Basophil % 0.5 % [facility] Baso Absolute 0.1 0.0 - 0.1 x10(3)/mc L [facility] Immature Gran % 0.30 % [facility] Comment: Immature granulocytes(IG's)percentage and absolute count will include metamyelocytes, myelocytes, and promyelocytes. Blood smears from CBCs yielding IG's will be scanned manually for concordance. If this scan disagrees with the automated IG or if promyelocytes are noted, a manual differential will be performed. Immature Gran Absolute 0.04 0.00 - 0.04 x10(3)/mc L [facility] Blood specimen (specimen) 07/26/2018 11:44 AM EDT 07/26/2018 11:49 AM EDT Narrative Resulting Agency Comment Spec In Lab Janet ALMONTE HEMATOLOGY ORDERABLE S [facility] [place] [address] * (ABNORMAL) Hemogram (07/26/2018 11:44 AM EDT) White Blood Cell 14.4(H) 4.0 - 9.5 x10(3)/mc L [facility] Red Blood Cell 4.73 4.58 - 5.54 x10(6)/mc L [facility] Hemoglobin 14.9 13.7 - 16.5 gm/dL [facility] Hematocrit 43.2 40.5 - 48.5 % [facility] Mean Cell Volume 91.3 82.9 - 93.1 fL [facility] Mean Cell Hemoglobin 31.5 27.5 - 32.1 pg [facility] Mean Cell Hemoglobin Concentration 34.5 32.0 - 35.7 gm/dL [facility] Platelet 209 145 - 357 x10(3)/mc L [facility] RDW Standard Deviation 41.9 36.0 - 45.0 [facility] RDW coefficient of variation 12.7 11.4 - 13.8 % [facility] Mean Platelet Volume 11.1 7.6 - 12.9 fL [facility] NRBC% auto 0.0 % [facility] NRBC Absolute 0.000 0.000 - 0.000 x10(3)/mc L [facility] Blood specimen (specimen) 07/26/2018 11:44 AM EDT 07/26/2018 11:49 AM EDT Narrative Resulting Agency Comment Spec In Lab Janet ALMONTE HEMATOLOGY ORDERABLE S Performing Organization Address [facility] Co de Phone Number [facility] [place] [address] * APTT (07/26/2018 11:44 AM EDT) Partial Thromboplastin Time 34 25 - 37 sec [facility] Comment: The PTT is NOT appropriate for heparin monitoring. Use the Anti-Xa level for heparin monitoring (HEP UFH) or LMWH monitoring (HEP LMW). A PTT less than 37 seconds generally indicates adequate hemostasis. Blood specimen (specimen) 07/26/2018 11:44 AM EDT 07/26/2018 11:49 AM EDT Narrative Resulting Agency Comment Spec In Lab Cameron Mahmood MD HEMATOLOGY ORDERABLE S Performing Organization Address [facility] de Phone Number [facility] [place] [address] * (ABNORMAL) Prothrombin Time (07/26/2018 11:44 AM EDT) Prothrombin Time 13.4(H) 9.4 - 12.5 sec [facility] International Normalization Ratio 1.2 [facility] Comment: An INR [...] Lab Cameron Mahmood MD HEMATOLOGY ORDERABLE S [facility] [place] [address] * (ABNORMAL) pro-Brain Natriuretic Peptide (07/26/2018 11:44 AM EDT) NT-proBNP 453(H) <=125 pg/mL [facility] Blood specimen (specimen) 07/26/2018 11:44 AM EDT 07/26/2018 11:49 AM EDT Narrative Resulting Agency Comment Spec In Lab Cameron Mahmood MD CHEMISTRY ORDERABLES Performing Organization Address City/[facility]/ZIP Co de Phone Number [facility] [place] [address] * Cardiac Enzymes (LEB/CGP) (07/26/2018 11:44 AM EDT) Pathologist [facility] Troponin-T <0.01 0.00 - 0.00 ng/mL [facility] Comment: The 99th percentile for Troponin T is less than 0.01 ng/mL, any detectable cTnT concentration using this assay should be considered elevated. According to the third universal definition of myocardial infarction the following criteria with a clinical presentation consistent with acute myocardial ischemia meets the diagnosis for a myocardial infarction (VA). Detection of a rise and/or fall of cTnT, with at least one value greater than the 99th percentile (> or = 0.01) and with at least one of the following ?? Symptoms of ischemia ?? New or presumed new significant LZ-dirvbmq-R wave (ST-T) changes or new left bundle [...] additional sample may be indicated. Reference: Third Mangum Definition of Myocardial Infarction. Journal of the [place] [employer] 2012;60:1581-98 Creatine Kinase <20 0 - 200 unit/L [facility] Blood specimen (specimen) 07/26/2018 11:44 AM EDT 07/26/2018 11:49 AM EDT Narrative Resulting Agency Comment Spec In Lab Deonna Rasheed PLATFORM MAN CHEMISTRY ORDERABL ES [facility] [place] [address] * Basic Metabolic Panel (non-fasting) (07/26/2018 11:44 AM EDT) Glucose 118 65 - 199 mg/dL [facility] Comment:Diabetes: >=200 mg/d L plus symptoms Blood Urea Nitrogen 20 10 - 20 mg/dL [facility] Creatinine 0.82 0.80 - 1.50 mg/dL [facility] Sodium 137 135 - 145 mmol/L [facility] Potassium 4.2 3.5 - 5.0 mmol/L [facility] Comment: Please note: ??Patients with WBC >100,000 may have falsely elevated Potassium levels. ??For accurate Potassium quantification in these patients send serum separator tube (gold top) for subsequent determinations. ??Contact the Clinical Chemistry Laboratory if there are any questions. Chloride 102 98 - 107 mmol/L [facility] Carbon Dioxide 24 22 - 31 mmol/L [facility] Anion Gap 11 5 - 15 mmol/L [facility] Calcium 9.4 8.5 - 10.5 mg/dL [facility] Est Glomerular Filtration Rate 88 >=60 mL/min/1. 73 m?? [facility] Comment: The eGFR was calculated using the CKD-EPI equation. As with all creatinine based estimates of kidney function, eGFR values calculated with the CKD-EPI equation are not accurate in patients with acute kidney failure, extremes of body mass or the acutely ill. http://[employer]/DHMCnkf eGFR 102 >=60 mL/min/1. 73 m?? [facility] Comment: The eGFR was calculated using the CKD-EPI equation. As with all creatinine based estimates of kidney function, eGFR values calculated with the CKD-EPI equation are not accurate in patients with acute kidney failure, extremes of body mass or the acutely ill. http://[employer]/DHMCnkf Blood specimen (specimen) 07/26/2018 11:44 AM EDT 07/26/2018 11:49 AM EDT Narrative Resulting Agency Comment Spec In Lab Cameron Mahmood MD CHEMISTRY ORDERABLES Performing Organization Address City/[facility] Co de Phone Number [facility] [place] [address] * EKG 12 Lead (07/26/2018 11:14 AM EDT) Ventricular rate 93 BPM MUSE SYSTEM Atrial Rate 86 BPM MUSE SYSTEM QRS Duration 76 ms MUSE SYSTEM Q-T Interval 366 ms MUSE SYSTEM QTC Calculated (Bezet) 455 ms MUSE SYSTEM Calculated R [place] 30 degrees MUSE SYSTEM Calculated T [place] 83 degrees MUSE SYSTEM INTERPRETATION Atrial fibrillation with premature ventricular or aberrantly conducted complexes Abnormal ECG No previous ECGs available Confirmed by MD Maki Kevin ([id number]) on 07/26/2018 6:28:42 PM MUSE SYSTEM 07/26/2018 11:1 4 AM EDT 07/26/2018 6:28 PM EDT Cameron Mahmood MD ECG ORDERABLES Performing Organization Address [facility] de Phone Number MUSE SYSTEM * SCAN DOC: TIER OVER (07/26/2018 12:00 AM EDT) Anatomical Region Laterality [...] 0810 (Given - Provider: Amadeo Espinosa RN)1054 ([facility] Hold - Provider: Admin Adt - Reason: Transfer to a Procedural area)1116 ([facility] Unhold - Provider: Admin Adt)1155 ([facility] Hold - Provider: Admin Adt - Reason: Transfer to a Procedural area)1217 ([facility] Unhold - Provider: Admin Adt) 0831 (Given - Provider: Amadeo Espinosa RN) 0909 (Given - Provider: Holly Alexandre, RN) brimonidine (ALPHAGAN) 0.2 % ophthalmic solution 1 drop(Linked Group 1) 1 drop, Both Eyes, 2 TIMES DAILY, First dose on Fri07/26/18 at 2100, Until Discontinued, Routine 0810 (Given - Provider: Amadeo Espinosa RN)1054 ([facility] Hold - Provider: Admin Adt - Reason: Transfer to a Procedural area)1116 ([facility] Unhold - Provider: Admin Adt)1155 ([facility] Hold - Provider: Admin Adt - Reason: Transfer to a Procedural area)1217 ([facility] Unhold - Provider: Admin Adt)2121 (Given - [...] nefazodone, norfloxacin, quinine, zafrilukast (inhibitors of cytochrome [id number]) may increase dofetilide levels; consider decreasing the [...] - Reason: Transfer to a Procedural area)1200 ([facility] Held - Provider: Admin Adt)1217 ([facility] Unhold - Provider: Admin Adt)1801 (Given - [...] Approved indication of non-valvular atrial fibrillation 1054 ([facility] Hold - Provider: Admin Adt - Reason: Transfer to a Procedural area)1116 ([facility] Unhold - Provider: Admin Adt)1155 ([facility] Hold - Provider: Admin Adt - Reason: Transfer to a Procedural area)1217 ([facility] Unhold - Provider: Admin Adt)1654 (Given - Provider: Amadeo Espinosa RN) 1723 (Given - Provider: Amadeo Espinosa, MORIAH) rosuvastatin (CRESTOR) tablet 10 mg 10 mg, Oral, EVERY EVENING, First dose (after last modification) on 07/26/18 at 1700, Until Discontinued, Routine 1054 ([facility] Hold - Provider: Admin Adt - Reason: Transfer to a Procedural area)1116 ([facility] Unhold - Provider: Admin Adt)1155 ([facility] Hold [...] - Reason: Transfer to a Procedural area)1217 ([facility] Unhold - Provider: Admin Adt)2121 (Given - [...] (New Bag - Provider: Lalo Forrester CRNA)1155 ([facility] Hold - Provider: Admin Adt - Reason: Transfer to a Procedural area)1217 ([facility] Unhold - Provider: Admin Adt) PRN Medication Order 07/30/2018 07/31/2018 08/01/2018 acetaminophen (TYLENOL) tablet 650 mg 650 mg, Oral, EVERY 4 HOURS PRN, Starting on 07/26/18 at 1242, Until 9/1/18 at 1705, Pain, Headaches, Maximum dose of acetaminophen is 4000 mg from all sources in 24 hours., Routine 1054 ([facility] Hold - Provider: Admin Adt - Reason: Transfer to a Procedural area)1116 ([facility] Unhold - Provider: Admin Adt)1155 ([facility] Hold - Provider: Admin Adt - Reason: Transfer to a Procedural area)1217 ([facility] Unhold - Provider: Admin Adt) nitroGLYcerin (NITROSTAT) [...] last 24 to 72 hours., Routine 1054 ([facility] Hold - Provider: Admin Adt - Reason: Transfer to a Procedural area)1116 ([facility] Unhold - Provider: Admin Adt)1155 ([facility] Hold - Provider: Admin Adt - Reason: Transfer to a Procedural area)1217 ([facility] Unhold - Provider: Admin Adt) Linked Groups [...] Routine documented in this encounter Care Teams [employer] Relationship Specialty Start Date End Date Agata Barrera DO [facility] MAR[place] [address] PCP - General Family Medicine 07/01/18 documented as of this encounter
--- OUTSIDE RECORDS SUMMARY | 2024-07-21 19:31 | XMS_ITS | Encounter Summary ---
[place] [address] Care Team Providers Care Spar Finisher Name Role Phone Agata Barrera DO Primary Care Provider [phone] Reason for Visit * Auth/Cert Specialty Diagnoses / Procedures Referred By Contac t Referred To Contact Diagnoses Chest pain ANGINA ?CAD Procedures CARDIAC CATHETERIZATION URG IPI Referral ID Status Reason Start Date Expiration Date Visits Re quested Visits Authorized [id number] 1 1 Encounter Details Date Type Department Care Team (Late st Contact Info) Description 07/27/2018 9:00 AM EDT - 07/27/2018 10:00 AM EDT [place] [address] Min Jeffery II, MD [facility] [place] [address] CARDIAC CATHETERIZATION Social History Tobacco Use Types Packs/Day Years [...] Agata Flores Patient Age: 72 y.o. Language: Yakut Race: White Ethnicity: Not nor Admit date: [...] [facility] can be reached at [phone] Discharge Diagnoses (Hospital Problems) and Secondary Diagnoses [...] x2, distal LCx x2, ramus x1 at [facility]), HTN, HLD, persistent a-fib (diagnosed 6 weeks ago, s/p DCCV 3 weeks ago, on xarelto), and brain abscess (s/p surgery and abx treatment in 2014) who presented to [facility] with progressive dyspnea and lightheadedness on exertion, [...] presumed to be in sinus rhythm. His auto inspector, Dr. Ma, had also scheduled him for an outpatient nuclear stress test to be done in the coming weeks. On Friday, 07/24, he had an episode of chest pressure, occurring with his shortness of breath and lightheadedness on exertion. It was relieved with rest. He went to [facility] ED and was in a-fib with HR 80. Troponins were negative, EKG was without concerning findings. He was admitted to await transfer [place] [facility] [place] cardiac catheter[place], given his history of ASCVD. He had one additional episode of chest pressure on exertion while at [facility], when he had gotten up to walk [...] past. He was started on aspirin at [facility] without side effects. Hospital Course: Chest pressure, with h/o ASCVD The patient ruled out for NSTEMI with negative troponin x3, however symptoms were concerning for his anginal equivalent. ECG showed no acute ST changed. Echo showed EF 61% without wall motion abnormalities. Given the patient???s risk factors and presentation, it was decided to proceed with coronaryangiography. He went to the laboratory cureman for a diagnostic cath, which showed non-obstructive CAD. Access was via the right radial artery, the site was clean, dry, and intact on day of discharge. He was discharged on aspirin 81mg daily, metoprolol, statin, and SL nitro prn. ?? Persistent a-fib, rate controlled The patient was in controlled a-fib, HR in 80s, on admission. His [id number] score is 3 (age, HTN,CAD). Rivaroxaban had [...] appointments: During 8am-5pm Friday through Friday call [phone] to speak with a nurse in the cardiology clinic All other times call [phone] and ask to speak to the business taxes specialist manager functional. Return to work: as needed Driving: as needed Follow up Appointments: PCP Agata Barrera DO [phone] to see you in a week. Please [...] appointments: During 8am-5pm Friday through Friday call [phone] to speak with a nurse in the cardiology clinic All other times call [phone] and ask to speak to the business taxes specialist manager functional. Return to work: as needed Driving: as needed Follow up Appointments: PCP Agata Barrera DO [phone] to see you in a week. Please [...] Progress Note Patient Name: Agata Flores Service: QUALITY SYSTEMS MANAGER / PA Responsible Attending: Ant Suarez MD Reason for continued hospitalization: A-fib management, Dofetilide load, s/p cardioversion to NSR Telemetry monitoring EP to see patient prior to continuing Dofetilide Active Problems: Active Hospital Problems Diagnosis ??? ASCVD (arteriosclerotic cardiovascular disease) PCI in 2005 at [facility]: stents to LAD x2, LCx [...] x2, distal LCx x2, ramus x1 at [facility]), HTN, HLD, persistent a-fib (diagnosed 6 weeks ago, s/p DCCV 3weeks ago, on xarelto), and brain abscess (s/p surgery and abx treatment in 2014) who presented to [facility] with progressive dyspnea and lightheadedness on exertion, [...] 80-100s since admission, currently in A. fib [id number] Score: 3 (age, HTN, CAD) Continue metoprolol [...] MD Kelly H. LaFlamme, PA 08/01/2018 Pager [phone] 08/01/2018 I have seen the patient and [...] Intervention: Diet Order Diet Order: [facility] [facility] Appetite: Good Food allergies: NKFA Chewing/Swallowing difficulty: [...] seen regarding Nutrition Education - [facility] [facility] diet. Patient reported a good appetite without [...] 1:56 PM EDT CM verified with pharmacy [facility]. It does not require prior authorization and the copay is 5 dollars. Corazon Allen RN CM Pager [phone] * Josh Muir PA - 07/31/2018 10:45 AM EDT Cardiac Electrophysiology Progress Note Attending: Fred Maki MD Problem List: Patient Active Problem List Diagnosis ??? ','ASCVD (arteriosclerotic cardiovascular disease) Overview Note: PCI in 2005 at [facility]: stents to LAD x2, LCx [...] x2, distal LCx x2, ramus x1 at [facility]), HTN and HLD. His cardiac enzymes remained negative and his EKGs were not suggestive of ischemia. He was transferred to [facility] [place] cardiac catheterization which revealed non-obstructive CAD. [...] of patient and formulation of plan Pager: [phone] Associated attestation - Fred aMki MD - 07/31/2018 3:24 PM EDT Patient seen and examined. Pertinent data (jani. ECGs) reviewed. Plan agreed with. Fred Maki MD, PhD, [facility] Cardiac Electrophysiology 07/31/2018 3:24 PM * Ant Suarez MD - 07/31/2018 10:35 AM EDT Images from the original note were not included. Inpatient Cardiology Progress Note Patient Name: Agata Flores Service: QUALITY SYSTEMS MANAGER / PA Responsible Attending: Ant Suarez MD [...] x2, distal LCx x2, ramus x1 at [facility]), HTN, HLD, persistent a-fib (diagnosed 6 weeks ago, s/p DCCV 3weeks ago, on xarelto), and brain abscess (s/p surgery and abx treatment in 2014) who presented to [facility] with progressive dyspnea and lightheadedness on exertion, [...] 80-100s since admission, currently in A. fib [id number] Score: 3 (age, HTN, CAD) Continue metoprolol [...] MD Kelly H. LaFlamme, PA 07/31/2018 Pager [phone] 07/31/2018 I have seen the patient and [...] (NENO/CT/pre-op PPI etc) Fred Maki MD, PhD, [facility] Cardiac Electrophysiology * Corazon Allen, MORIAH - 07/30/2018 11:07 AM EDT CM continues to monitor for post hospital needs. Potential DC Friday. Pt started on Tikosyn po (consider possible preauth for medication). No home care needs identified. Corazon Allen RN Pager [phone] * Elena HooksJOSE - 07/30/2018 9:01 AM EDT Inpatient Cardiology Progress Note Patient Name: Agata Flores Service: QUALITY SYSTEMS MANAGER / PA Responsible Attending: Cameron Mahmood MD Reason for continued hospitalization: A-fib management Syncope Dofetilide load, cardioversion Active Problems: Active Hospital Problems Diagnosis ??? ASCVD (arteriosclerotic cardiovascular disease) PCI in 2005 at [facility]: stents to LAD x2, LCx [...] x2, distal LCx x2, ramus x1 at [facility]), HTN, HLD, persistent a-fib (diagnosed 6 weeks ago, s/p DCCV 3weeks ago, on xarelto), and brain abscess (s/p surgery and abx treatment in 2014) who presented to [facility] with progressive dyspnea and lightheadedness on exertion, [...] 80-100s since admission, currently in A. fib [id number] Score: 3 (age, HTN, CAD) Continue metoprolol [...] Arrived from or per bed accompanied by post hole digger. Phase I in progress. Patient has dry cough. States tickle in thrOAT. Denies shortness of breath or chest pain. * Elena Hooks, COMPOSITION MOLDER - 07/29/2018 11:49 AM EDT Inpatient Cardiology Progress Note Patient Name: Agata Flores Service: QUALITY SYSTEMS MANAGER / PA Responsible Attending: Cameron Mahmood MD Reason for continued hospitalization: Evaluation and management of chest pain S/p cardiac catheterization, non-obstructive disease EP consult for a-fib management Syncope Active Problems: Active Hospital Problems Diagnosis ??? ASCVD (arteriosclerotic cardiovascular disease) PCI in 2005 at [facility]: stents to LAD x2, LCx [...] x2, distal LCx x2, ramus x1 at [facility]), HTN, HLD, persistent a-fib (diagnosed 6 weeks ago, s/p DCCV 3weeks ago, on xarelto), and brain abscess (s/p surgery and abx treatment in 2014) who presented to [facility] with progressive dyspnea and lightheadedness on exertion, [...] controlled HR controlled in 80-100s since admission [id number] Score: 3 (age, HTN, CAD) Continue metoprolol [...] with pt in more detail short and local intermodal truck driver risk of afib ablation and drug therapy [...] clear dofetilide initiation Fred Maki MD, PhD, [facility] Cardiac Electrophysiology * Stephanie Mcgraw RN - 07/28/2018 10:43 AM EDT 0845 :Mr Flores was finishing his shower , sitting on the toilet . He stated That he began to feel dizzy , put his call light on and notified the USPS LETTER CARRIER that he was feeling dizzy.I ran to [...] Progress Note Patient Name: Agata Flores Service: QUALITY SYSTEMS MANAGER / PA Responsible Attending: Cameron Mahmood MD Reason for continued hospitalization: Evaluation and management of chest pain S/p cardiac catheterization, non-obstructive disease EP consult for a-fib management Syncope Active Problems: Active Hospital Problems Diagnosis ??? ASCVD (arteriosclerotic cardiovascular disease) PCI in 2005 at [facility]: stents to LAD x2, LCx [...] sitting position on the toilet by a associate of science in nursing. When the associate of science in nursing went to find other staff to help [...] his reports. He was evaluated by this remote mortgage underwriter along with Dr. Mahmood once he regained [...] x2, distal LCx x2, ramus x1 at [facility]), HTN, HLD, persistent a-fib (diagnosed 6 weeks ago, s/p DCCV 3weeks ago, on xarelto), and brain abscess (s/p surgery and abx treatment in 2014) who presented to [facility] with progressive dyspnea and lightheadedness on exertion, [...] controlled HR controlled in 80-100s since admission [id number] Score: 4 (age, HTN, CAD) Continue metoprolol [...] I shared this visit with Elena Jessee COMPOSITION MOLDER and guided the medical decision-making. * Deonna Rasheed, COMPOSITION MOLDER - 07/27/2018 1:28 PM EDT Inpatient Cardiology Progress Note Patient Name: Agata Flores Service: QUALITY SYSTEMS MANAGER / PA Responsible Attending: Cameron Mahmood MD Reason for continued hospitalization: Evaluation and management of chest pain S/p cardiac catheterization, non-obstructive disease EP consult for a-fib management Active Problems: Active Hospital Problems Diagnosis ??? ASCVD (arteriosclerotic cardiovascular disease) PCI in 2005 at [facility]: stents to LAD x2, LCx [...] x2, distal LCx x2, ramus x1 at [facility]), HTN, HLD, persistent a-fib (diagnosed 6 weeks ago, s/p DCCV 3weeks ago, on xarelto), and brain abscess (s/p surgery and abx treatment in 2014) who presented to [facility] with progressive dyspnea and lightheadedness on exertion, [...] Persistent a-fib, rate controlled HR controlled in [id number] since admission [id number] Score: 4 (age, HTN, CAD) Continue metoprolol, [...] with Cameron Mahmood MD. Deonna Rasheed, MSN, TOWER SWITCH OPERATOR-, JOSE 07/27/2018 Pager [phone] Associated attestation - Cameron Mahmood MD - 07/27/2018 3:58 PM EDT Cardiology Attending Addendum I shared this visit with Deonna Rasheed APRN, and guided the medical decision-making. * Min Jeffery II - 07/27/2018 11:33 AM EDT Agata Flores July 27, 2018 [phone] [facility] - Preliminary Findings Procedures: coronary angiography left [...] be: 4 (see definitions below). Definitions from [place] [employer] Health and Aging Clinical Frailty [...] with all outside activities and with minor wood dowel machine operator. May need help with bathing and dressing. [...] this encounter H&P Notes * Deonna Rasheed, COMPOSITION MOLDER - 07/26/2018 11:05 AM EDT Cardiology Admission H&P Patient Name: Agata Flores Date of : 1945 Age: 72 y.o. Hospital Admit Date: 07/26/2018 Inpatient Attending: Cameron Mahmood MD PCP: Agata Barrera, Presenting Diagnosis/Chief Complaint: Chest pressure Active Problem List: Active Hospital Problems Diagnosis ??? ASCVD (arteriosclerotic cardiovascular disease) PCI in 2005 at [facility]: stents to LAD x2, LCx [...] x2, distal LCx x2, ramus x1 at [facility]), HTN, HLD, persistent a-fib (diagnosed 6 weeks ago, s/p DCCV 3 weeks ago, on xarelto), and brain abscess (s/p surgery and abx treatment in 2014) who presented to [facility] with progressive dyspnea and lightheadedness on exertion, [...] presumed to be in sinus rhythm. His auto inspector, Dr. Ma, had also scheduled him for an outpatient nuclear stress test to be done in the coming weeks. On Friday, 07/24, he had an episode of chest pressure, occurring with his shortness of breath and lightheadedness on exertion. It was relieved with rest. He went to [facility] ED and was in a-fib with HR 80. Troponins were negative, EKG was without concerning findings. He was admitted to await transfer [place] [facility] [place] c ardiac catheter[place], given his history of ASCVD. He had one additional episode of chest pressureon exertion while at [facility], when he had gotten up to walk [...] past. He was started on aspirin at [facility] without side effects. Past Medical History: Past Medical History: Diagnosis Date ??? A-fib ??? Brain abscess ??? CAD (coronary artery disease) ??? HLD (hyperlipidemia) ??? HTN (hypertension) Surgical History/Problems: Past Surgical History: Procedure Laterality Date ??? PRO STEREO BX/ASPIR/EXCIS, INTRACRANIAL LESN Right 01/27/2015 @STEREOTACTIC BX,ASP, OR EXC.-INTRACRANIAL LESION, W/SCAN performed by Jose Small MD at [facility] MA[facility] OR ??? PRO STEREOTACTIC CPTR ASSTD PX CRANIAL, INTRADURAL Right 01/27/2015 STEREOTACTIC COMPUTER-ASSTD NAVIGATIONAL CRANIAL INTRADURAL performed by Jose Small MD at [facility] MA[facility] OR Significant Family History: Family [...] [facility], 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: Review of Systems [...] LAD x2, distalLCx x2, ramus x1 at [facility]), HTN, HLD, persistent a-fib (diagnosed 6 weeks ago, s/p DCCV 3 weeks ago, on xarelto), and brain abscess (s/p surgery and abx treatment in 2014) who presented to [facility] with progressive dyspnea and lightheadedness on exertion, [...] 2018 showed EF 60-65%, no WMAs, per [facility] notes) Plan for cardiac catheterization tomorrow No plavix or heparin at this time Continue aspirin, metoprolol, statin, SL nitro prn Persistent a-fib, rate controlled HR controlled in 80s since admission [id number] Score: 4 (age, HTN, CAD) Continue metoprolol [...] with Cameron Mahmood MD. Deonna Rasheed, MSN, TOWER SWITCH OPERATOR-ANDREEA, JOSE 07/26/2018 Pager [phone] Associated attestation - Cameron Mahmood MD - [...] (arteriosclerotic cardiovascular disease) PCI in 2005 at [facility]: stents to LAD x2, LCx [...] to family to bring to [facility] [place] to ensure receipt prior to close [...] 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: MEDICARE Secondary Insurance: [employer] [place] Prescription Coverage: yes Preferred Pharmacy: See demographics Other: n/a Primary Care Provider: Agata Barrera DO [phone] Patient/Caregiver Goals of Treatment: To figure out [...] abx treatment in 2015) who presented to [facility] with dyspnea, lightheadedness and chest pressure. ??Plan is for NENO tomorrow. Pt is independent with no home care needs identified. Plan: DC home/ Self care A member of the Care Management team will continue to monitor progress, follow for continuity of care and assist with transition of care planning. Corazon Allen RN Pager: [phone] * Consult Note - Danuta Kerr RN - 07/28/2018 9:47 AM EDT [facility] RESPONSE TEAM NOTE Name: Agata Flores Age: 72 y.o. Sex; Male Date of : 1945 Responding Members: Patt Kerr RN, Carmen Goetz RCP, Karen Martin RCP, Cindy LAY Date/Time of Admission: 07/26/2018 11:01 AM Unit/Room: [facility] Service: Cardiology Time Activated: 08 Time Arrived: 0834 Time at bedside: 60 minutes Indication for Consult: LOC ASSESSMENT/INTERVENTION Brief 24 hr history: Cary gamboa received at 0831. On arrival to room, Mr. Flores found supine onbathroom floor, wedged against wall. He was awake, in care of several 4E RN's and USPS LETTER CARRIER. No compressions had been administered. He had regular respirations, palp radial, appropriate verbal responses. Skin cool, pale quality, wet (from shower vs diaphoresis). Unprotected fall from toilet confirmed by patient and USPS LETTER CARRIER; CTLS precautions initiated. Per patient report, he had become dizzy at end of hisshower, had seated self on toilet and pulled cord in bathroom for assist. USPS LETTER CARRIER responded, left to obtain additional assist and on return found Mr. Flores on bathroom floor. Concern for initial status pr ompted Code Blue activation. Per report, likely full LOC as patient stated I sat on the toilet andthe next I knew I was on the floor. LOC described as brief, self resolving. ore dryer had been disconnected for Mr. Flores to [...] x2, distal LCx x2, ramus x1 at [facility]), HTN and HLD. His cardiac enzymes remained negative and his EKGs were not suggestive of ischemia. He was transferred to [facility] [place] cardiac catheterization which revealed non-obstructive CAD. [...] Current Facility-Administered Medications Ordered in [facility] Medication Dose Route Frequency Provider Last Rate Last Dose ??? sodium chloride 0.9% infusion 100 mL/hr Intravenous Continuous Darion Mcahado MD 100 mL/hr at 07/27/18 1142 100 mL/hr at 07/27/18 1142 ??? rivaroxaban (XARELTO) tablet 20 mg 20 mg Oral Daily with dinner Kathya Deonna T, COMPOSITION MOLDER ??? metoprolol tartrate (LOPRESSOR) tablet 25 mg 25 mg Oral Q6H POPPY Kathya, Deonna T, COMPOSITION MOLDER 25 mg at 07/27/18 0612 ??? aspirin EC tablet 81 mg 81 mg Oral Daily Kathya, Deonna T, COMPOSITION MOLDER 81 mg at 07/27/18 0811 ??? nitroGLYcerin (NITROSTAT) SL tablet 0.4 mg 0.4 mg Sublingual Q5 Min PRN Kathya, Deonna T, COMPOSITION MOLDER ??? acetaminophen (TYLENOL) tablet 650 mg 650 mg Oral Q4H PRN Kathya, Deonna T, COMPOSITION MOLDER ??? brimonidine (ALPHAGAN) 0.2 % ophthalmic solution 1 drop 1 drop Both Eyes BID Kathya, Deonna T,COMPOSITION MOLDER 1 drop at 07/27/18 0811 And ??? timolol (TIMOPTIC) 0.5 % ophthalmic solution 1 drop 1 drop Both Eyes BID Kathya, Deonna T, COMPOSITION MOLDER 1 drop at 07/27/18 0811 ??? rosuvastatin (CRESTOR) tablet 10 mg 10 mg Oral QPM Kathya, Deonna T, COMPOSITION MOLDER 10 mg at 07/26/18 1636 No current [facility]-ordered outpatient prescriptions on file. Family History: Family [...] [facility], 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 Physical Exam: Vital signs: Last value [...] 12 lead EK07/27/2018 Atrial fibrillation @ 75; NV 166; QRs 76; QTc 426ms Assessment: Agata [...] to follow patient. Provider: GAGE Aldridge Provider#: [id number] Consult attending physician: Alvaro Maki MD EP Consult positional pager #[phone](EPSC) EP Device interrogation positional pager # [phone] Associated attestation - Fred Maki MD - 07/27/2018 8:08 PM EDT Cardiac Electrophysiology Attending Addendum: The patient was seen, interviewed and examined by me. Pertinent data and results reviewed. Miguel ALMONTE's note above was reviewed by me and agreed with. Specifically, the pertinent diagnoses andrecommendations were discussed with me. Fred Maki MD, PhD, [facility] Cardiac Electrophysiology * Plan of [...] further details. Deonna Rasheed APRN 07/26/2018 Pager [phone] documented in this encounter Plan of Treatment Upcoming Encounters Date Type Department Care Team (Late st Contact Info) Description 09/08/2024 9:40 AM EDT Office Visit Cardiology at [address] [place] [address] Gonzales Torres MD [facility] [place] [address] Pending Results Name Type Priority Associated Diagnoses [...] 11:14 AM EDT Chest pain, unspecified type HOLE DIGGER SCAN 07/26/2018 12:00 AM EDT documented in this encounter Results * EKG 12 Lead (08/01/2018 11:02 AM EDT) Pathologist [facility] [place] Ventricular rate 52 BPM MUSE SYSTEM Atrial Rate 53 BPM MUSE SYSTEM QRS Duration 76 ms MUSE SYSTEM Q-T Interval 482 ms MUSE SYSTEM QTC Calculated (Bezet) 448 ms MUSE SYSTEM Calculated P [place] 62 degrees MUSE SYSTEM Calculated R [place] 24 degrees MUSE SYSTEM Calculated T [place] 121 degrees MUSE SYSTEM INTERPRETATION Sinus bradycardia [...] Differential, Automated (08/01/2018 3:35 AM EDT) Pathologist [facility] [place] Neutrophil % 38.8 % [facility] Neutrophil Absolute 5.48 1.70 - 6.10 x10(3)/mc L [facility] Lymph % 15.9 % [facility] Lymphocytes Abs 2.2 0.9 - 3.2 x10(3)/mc L [facility] Monocyte % 7.1 % [facility] Monocyte Abs 1.0(H) 0.3 - 0.9 x10(3)/[facility] Eos % 37.5 % [facility] Eosinophils Abs 5.3(H) 0.0 - 0.4 x10(3)/[facility] Basophil % 0.5 % [facility] Baso Absolute 0.1 0.0 - 0.1 x10(3)/[facility] Immature Gran % 0.20 % [facility] Comment: Immature granulocytes(IG's)percentage and absolute count will include metamyelocytes, myelocytes, and promyelocytes. Blood smears from CBCs yielding IG's will be scanned manually for concordance. If this scan disagrees with the automated IG or if promyelocytes are noted, a manual differential will be performed. Immature Gran Absolute 0.03 0.00 - 0.04 x10(3)/[facility] Blood specimen (specimen) 08/01/2018 3:35 AM EDT 08/01/2018 3:56 AM EDT Narrative Resulting Agency Comment Spec In Lab Elena Hooks APRN HEMATOLOGY ORDERABLE S Performing Organization Address City/State/[facility] Co de Phone Number [facility] [place] [address] * (ABNORMAL) Hemogram (08/01/2018 3:35 AM EDT) White Blood Cell 14.1(H) 4.0 - 9.5 x10(3)/[facility] Red Blood Cell 4.27(L) 4.58 - 5.54 x10(6)/[facility] Hemoglobin 13.9 13.7 - 16.5 gm/dL [facility] Hematocrit 38.9(L) 40.5 - 48.5 % [facility] Mean Cell Volume 91.1 82.9 - 93.1 fL [facility] Mean Cell Hemoglobin 32.6(H) 27.5 - 32.1 pg [facility] Mean Cell Hemoglobin Concentration 35.7 32.0 - 35.7 gm/dL [facility] Platelet 198 145 - 357 x10(3)/mc L [facility] RDW Standard Deviation 41.2 36.0 - 45.0 fL [facility] RDW coefficient of variation 12.6 11.4 - 13.8 % [facility] Mean Platelet Volume 11.3 7.6 - 12.9 [facility] NRBC% auto 0.0 % [facility] NRBC Absolute 0.000 0.000 - 0.000 x10(3)/mc L [facility] Blood specimen (specimen) 08/01/2018 3:35 AM EDT 08/01/2018 3:56 AM EDT Narrative Resulting Agency Comment Spec In Lab Elena Hooks APRN HEMATOLOGY ORDERABLE S [facility] [place] [address] * (ABNORMAL) BMP w/fasting Glucose (08/01/2018 3:35 AM EDT) Glucose Fasting 110(H) 65 - 99 mg/dL [facility] Comment: ?Fasting* Glucose Interpretive Criteria [...] of Diabetes Mellitus, Position Statement from the [employer]. ??Diabetes Care, Volume 33, Supplement 1, Dec 2009 Blood Urea Nitrogen 22(H) 10 - 20 mg/dL [facility] Creatinine 0.79(L) 0.80 - 1.50 mg/dL [facility] Sodium 137 135 - 145 mmol/L [facility] Potassium 4.4 3.5 - 5.0 mmol/L [facility] Comment: Please note: ??Patients with WBC >100,000 may have falsely elevated Potassium levels. ??For accurate Potassium quantification in these patients send serum separator tube (gold top) for subsequent determinations. ??Contact the Clinical Chemistry Laboratory if there are any questions. Chloride 102 98 - 107 mmol/L [facility] Carbon Dioxide 25 22 - 31 mmol/L [facility] Anion Gap 10 5 - 15 mmol/L [facility] Calcium 9.4 8.5 - 10.5 mg/dL [facility] Est Glomerular Filtration Rate 90 >=60 mL/min/1. 73 m?? [facility] Comment: The eGFR was calculated using the CKD-EPI equation. As with all creatinine based estimates of kidney function, eGFR values calculated with the CKD-EPI equation are not accurate in patients with acute kidney failure, extremes of body mass or the acutely ill. [email or web address] eGFR 104 >=60 mL/min/1. 73 m?? [facility] Comment: The eGFR was calculated using the CKD-EPI equation. As with all creatinine based estimates of kidney function, eGFR values calculated with the CKD-EPI equation are not accurate in patients with acute kidney failure, extremes of body mass or the acutely ill. [email or web address] Blood specimen (specimen) 08/01/2018 3:35 AM EDT 08/01/2018 3:56 AM EDT Narrative Resulting Agency Comment Spec In Lab Elena Hooks APRN CHEMISTRY ORDERABLES [facility] [place] [id number] * EKG 12 Lead (08/01/2018 12:00 AM EDT) Ventricular rate 58 BPM MUSE SYSTEM Atrial Rate 58 BPM MUSE SYSTEM P-R Interval 158 ms MUSE SYSTEM QRS Duration 82 ms MUSE SYSTEM Q-T Interval 530 ms MUSE SYSTEM QTC Calculated (Bezet) 520 ms MUSE SYSTEM Calculated P [place] 74 degrees MUSE SYSTEM Calculated R [place] 45 degrees MUSE SYSTEM Calculated T [place] 97 degrees MUSE SYSTEM INTERPRETATION Sinus bradycardia [...] Hooks APRN ECG ORDERABLES Performing Organization Address [facility] de Phone Number MUSE SYSTEM * EKG 12 Lead (07/31/2018 2:14 PM EDT) Ventricular rate 56 BPM MUSE SYSTEM Atrial Rate 56 BPM MUSE SYSTEM P-R Interval 162 ms MUSE SYSTEM QRS Duration 76 ms MUSE SYSTEM Q-T Interval 482 ms MUSE SYSTEM QTC Calculated (Bezet) 465 ms MUSE SYSTEM Calculated P [place] 70 degrees MUSE SYSTEM Calculated R [place] 17 degrees MUSE SYSTEM Calculated T [place] 134 degrees MUSE SYSTEM INTERPRETATION Sinus bradycardia [...] Hooks APRN ECG ORDERABLES Performing Organization Address [facility] Co de Phone Number MUSE SYSTEM * EKG 12 Lead (07/31/2018 8:32 AM EDT) Ventricular rate 54 BPM MUSE SYSTEM Atrial Rate 54 BPM MUSE SYSTEM P-R Interval 160 ms MUSE SYSTEM QRS Duration 78 ms MUSE SYSTEM Q-T Interval 498 ms MUSE SYSTEM QTC Calculated (Bezet) 472 ms MUSE SYSTEM Calculated P [place] 67 degrees MUSE SYSTEM Calculated R [place] 12 degrees MUSE SYSTEM Calculated T [place] 128 degrees MUSE SYSTEM INTERPRETATION Sinus bradycardia with marked sinus arrhythmia Low voltage QRS Nonspecific T wave abnormality Prolonged QT Abnormal ECG When compared with ECG of 31-JUL-2018 07:44, No significant change was found Confirmed by Denys Miller MD ([id number]) on 07/31/2018 5:01:20 PM MUSE SYSTEM 07/31/2018 8:32 AM EDT 07/31/2018 5:01 PM EDT Ant Suarez MD ECG ORDERABLES Performing Organization Address [facility] Phone Number MUSE SYSTEM * EKG 12 Lead (07/31/2018 7:44 AM EDT) Ventricular rate 56 BPM MUSE SYSTEM Atrial Rate 56 BPM MUSE SYSTEM P-R Interval 164 ms MUSE SYSTEM QRS Duration 84 ms MUSE SYSTEM Q-T Interval 494 ms MUSE SYSTEM QTC Calculated (Bezet) 476 ms MUSE SYSTEM Calculated P [place] 71 degrees MUSE SYSTEM Calculated R [place] 15 degrees MUSE SYSTEM Calculated T [place] 127 degrees MUSE SYSTEM INTERPRETATION Sinus bradycardia [...] Hooks APRN ECG ORDERABLES Performing Organization Address [facility] Co de Phone Number MUSE SYSTEM * (ABNORMAL) Differential, Automated (07/31/2018 6:33 AM EDT) Neutrophil % 39.3 % [facility] Neutrophil Absolute 5.61 1.70 - 6.10 x10(3)/[facility] Lymph % 13.7 % [facility] Lymphocytes Abs 2.0 0.9 - 3.2 x10(3)/[facility] Monocyte % 7.4 % [facility] Monocyte Abs 1.0(H) 0.3 - 0.9 x10(3)/[facility] Eos % 38.8 % [facility] Eosinophils Abs 5.5(H) 0.0 - 0.4 x10(3)/[facility] Basophil % 0.6 % [facility] Baso Absolute 0.1 0.0 - 0.1 x10(3)/[facility] Immature Gran % 0.20 % [facility] Comment: Immature granulocytes(IG's)percentage and absolute count will include metamyelocytes, myelocytes, and promyelocytes. Blood smears from CBCs yielding IG's will be scanned manually for concordance. If this scan disagrees with the automated IG or if promyelocytes are noted, a manual differential will be performed. Immature Gran Absolute 0.03 0.00 - 0.04 x10(3)/[facility] Blood specimen (specimen) 07/31/2018 6:33 AM EDT 07/31/2018 6:52 AM EDT Narrative Resulting Agency Comment Spec In Lab Elena Hooks APRN HEMATOLOGY ORDERABLE S [facility] [place] [address] * (ABNORMAL) Hemogram (07/31/2018 6:33 AM EDT) White Blood Cell 14.3(H) 4.0 - 9.5 x10(3)/[facility] Red Blood Cell 4.92 4.58 - 5.54 x10(6)/[facility] Hemoglobin 15.8 13.7 - 16.5 gm/dL [facility] Hematocrit 45.2 40.5 - 48.5 % [facility] Mean Cell Volume 91.9 82.9 - 93.1 [facility] Mean Cell Hemoglobin 32.1 27.5 - 32.1 pg [facility] Mean Cell Hemoglobin Concentration 35.0 32.0 - 35.7 gm/dL [facility] Platelet 183 145 - 357 x10(3)/mc L [facility] RDW Standard Deviation 42.5 36.0 - 45.0 [facility] RDW coefficient of variation 12.6 11.4 - 13.8 % [facility] Mean Platelet Volume 11.0 7.6 - 12.9 [facility] NRBC% auto 0.0 % [facility] NRBC Absolute 0.000 0.000 - 0.000 x10(3)/mc L [facility] Blood specimen (specimen) 07/31/2018 6:33 AM EDT 07/31/2018 6:52 AM EDT Narrative Resulting Agency Comment Spec In Lab Elena Hooks APRN HEMATOLOGY ORDERABLE S [facility] [place] [address] * (ABNORMAL) BMP w/fasting Glucose (07/31/2018 6:33 AM EDT) Glucose Fasting 107(H) 65 - 99 mg/dL [facility] Comment: ?Fasting* Glucose Interpretive Criteria [...] of Diabetes Mellitus, Position Statement from the [place] [employer]. ??Diabetes Care, Volume 33, Supplement 1, Dec 2009 Blood Urea Nitrogen 22(H) 10 - 20 mg/dL [facility] Creatinine 0.75(L) 0.80 - 1.50 mg/dL [facility] Sodium 140 135 - 145 mmol/L [facility] Potassium 4.3 3.5 - 5.0 mmol/L [facility] Comment: Please note: ??Patients with WBC >100,000 may have falsely elevated Potassium levels. ??For accurate Potassium quantification in these patients send serum separator tube (gold top) for subsequent determinations. ??Contact the Clinical Chemistry Laboratory if there are any questions. Chloride 100 98 - 107 mmol/L [facility] Carbon Dioxide 27 22 - 31 mmol/L [facility] Anion Gap 13 5 - 15 mmol/L [facility] Calcium 9.6 8.5 - 10.5 mg/dL [facility] Est Glomerular Filtration Rate 92 >=60 mL/min/1. 73 m?? [facility] Comment: The eGFR was calculated using the CKD-EPI equation. As with all creatinine based estimates of kidney function, eGFR values calculated with the CKD-EPI equation are not accurate in patients with acute kidney failure, extremes of body mass or the acutely ill. [email or web address] eGFR 106 >=60 mL/min/1. 73 m?? [facility] Comment: The eGFR was calculated using the CKD-EPI equation. As with all creatinine based estimates of kidney function, eGFR values calculated with the CKD-EPI equation are not accurate in patients with acute kidney failure, extremes of body mass or the acutely ill. [email or web address] Blood specimen (specimen) 07/31/2018 6:33 AM EDT 07/31/2018 6:52 AM EDT Narrative Resulting Agency Comment Spec In Lab Elena Hooks COMPOSITION MOLDER CHEMISTRY ORDERABLES Performing Organization Address City/[facility]/ZIP Co de Phone Number [facility] [place] [address] * EKG 12 Lead (07/31/2018 12:17 AM EDT) Ventricular rate 68 BPM MUSE SYSTEM Atrial Rate 68 BPM MUSE SYSTEM P-R Interval 176 ms MUSE SYSTEM QRS Duration 74 ms MUSE SYSTEM Q-T Interval 490 ms MUSE SYSTEM QTC Calculated (Bezet) 521 ms MUSE SYSTEM Calculated P [place] 80 degrees MUSE SYSTEM Calculated R [place] 22 degrees MUSE SYSTEM Calculated T [place] 73 degrees MUSE SYSTEM INTERPRETATION Sinus rhythm Occasional Premature ventricular complexes Low voltage QRS T wave abnormality, consider anterior ischemia Prolonged QT Abnormal ECG When compared with ECG of 30-JUL-2018 12:36, T wave inversion no longer evident in Lateral leads Confirmed by Denys Miller MD ([id number]) on 07/31/2018 3:59:20 PM MUSE SYSTEM 07/31/2018 12:1 7 AM EDT 07/31/2018 3:59 PM EDT Elena Hooks COMPOSITION MOLDER ECG ORDERABLES Performing Organization Address City/[facility]/ZIP Co de Phone Number MUSE SYSTEM * EKG 12 Lead (07/30/2018 12:36 PM EDT) Ventricular rate 58 BPM MUSE SYSTEM Atrial Rate 58 BPM MUSE SYSTEM P-R Interval 170 ms MUSE SYSTEM QRS Duration 74 ms MUSE SYSTEM Q-T Interval 490 ms MUSE SYSTEM QTC Calculated (Bezet) 481 ms MUSE SYSTEM Calculated P [place] 73 degrees MUSE SYSTEM Calculated R [place] 20 degrees MUSE SYSTEM Calculated T [place] 149 degrees MUSE SYSTEM INTERPRETATION Sinus bradycardia [...] (arteriosclerotic cardiovascular disease) ??PCI in 2005 at [facility]: stents to LAD x2, LCx [...] (Bezet) 522 ms MUSE SYSTEM Calculated R [place] 21 degrees MUSE SYSTEM Calculated T [place] -141 degrees MUSE SYSTEM INTERPRETATION Atrial flutter with variable A-V block Abnormal ECG When compared with ECG of 30-JUL-2018 07:34, No significant change was found Confirmed by MD PAT, KURTIS ([id number]) on 07/30/2018 4:46:36 PM MUSE SYSTEM 07/30/2018 10:0 4 AM EDT 07/30/2018 4:46 PM EDT Elena Hooks COMPOSITION MOLDER ECG ORDERABLES Performing Organization Address [facility] Co de Phone Number MUSE SYSTEM * EKG 12 Lead (07/30/2018 7:34 AM EDT) Ventricular rate 90 BPM MUSE SYSTEM Atrial Rate 90 BPM MUSE SYSTEM QRS Duration 74 ms MUSE SYSTEM Q-T Interval 392 ms MUSE SYSTEM QTC Calculated (Bezet) 479 ms MUSE SYSTEM Calculated R [place] 22 degrees MUSE SYSTEM Calculated T [place] 107 degrees MUSE SYSTEM INTERPRETATION Atrial flutter [...] Hooks APRN ECG ORDERABLES Performing Organization Address [facility] de Phone Number MUSE SYSTEM * (ABNORMAL) Differential, Automated (07/30/2018 4:06 AM EDT) Neutrophil % 57.5 % [facility] Neutrophil Absolute 9.87(H) 1.70 - 6.10 x10(3)/mc L [facility] Lymph % 11.4 % [facility] Lymphocytes Abs 2.0 0.9 - 3.2 x10(3)/mc L [facility] Monocyte % 7.5 % [facility] Monocyte Abs 1.3(H) 0.3 - 0.9 x10(3)/[facility] Eos % 23.0 % [facility] Eosinophils Abs 4.0(H) 0.0 - 0.4 x10(3)/[facility] Basophil % 0.3 % [facility] Baso Absolute 0.0 0.0 - 0.1 x10(3)/[facility] Immature Gran % 0.30 % [facility] Comment: Immature granulocytes(IG's)percentage and absolute count will include metamyelocytes, myelocytes, and promyelocytes. Blood smears from CBCs yielding IG's will be scanned manually for concordance. If this scan disagrees with the automated IG or if promyelocytes are noted, a manual differential will be performed. Immature Gran Absolute 0.06(H) 0.00 - 0.04 x10(3)/[facility] Blood specimen (specimen) 07/30/2018 4:06 AM EDT 07/30/2018 4:38 AM EDT Narrative Resulting Agency Comment Spec In Lab Deonna Rasheed COMPOSITION MOLDER HEMATOLOGY ORDERAB LES [facility] [place] [address] * (ABNORMAL) Hemogram (07/30/2018 4:06 AM EDT) White Blood Cell 17.2(H) 4.0 - 9.5 x10(3)/[facility] Red Blood Cell 4.75 4.58 - 5.54 x10(6)/[facility] Hemoglobin 15.0 13.7 - 16.5 gm/dL [facility] Hematocrit 43.5 40.5 - 48.5 % [facility] Mean Cell Volume 91.6 82.9 - 93.1 fL [facility] Mean Cell Hemoglobin 31.6 27.5 - 32.1 pg [facility] Mean Cell Hemoglobin Concentration 34.5 32.0 - 35.7 gm/dL [facility] Platelet 197 145 - 357 x10(3)/mc L [facility] RDW Standard Deviation 42.6 36.0 - 45.0 fL [facility] RDW coefficient of variation 12.8 11.4 - 13.8 % [facility] Mean Platelet Volume 10.9 7.6 - 12.9 fL [facility] NRBC% auto 0.0 % [facility] NRBC Absolute 0.000 0.000 - 0.000 x10(3)/mc L [facility] Blood specimen (specimen) 07/30/2018 4:06 AM EDT 07/30/2018 4:38 AM EDT Narrative Resulting Agency Comment Spec In Lab Deonna Rasheed COMPOSITION MOLDER HEMATOLOGY ORDERAB LES Performing Organization Address [facility]/ZIP Co de Phone Number [facility] [place] [address] * Magnesium (07/30/2018 4:06 AM EDT) Magnesium 0.83 0.69 - 1.07 mmol/L [facility] Blood specimen (specimen) 07/30/2018 4:06 AM EDT 07/30/2018 4:38 AM EDT Narrative Resulting Agency Comment Spec In Lab Deonna Rasheed COMPOSITION MOLDER CHEMISTRY ORDERABL ES Performing Organization Address [facility] Co de Phone Number [facility] [place] [address] * (ABNORMAL) BMP w/fasting Glucose (07/30/2018 4:06 AM EDT) Glucose Fasting 110(H) 65 - 99 mg/dL [facility] Comment: ?Fasting* Glucose Interpretive Criteria [...] of Diabetes Mellitus, Position Statement from the [place] Diabetes [employer]. ??Diabetes Care, Volume 33, Supplement 1, Dec 2009 Blood Urea Nitrogen 19 10 - 20 mg/dL [facility] Creatinine 0.81 0.80 - 1.50 mg/dL [facility] Sodium 138 135 - 145 mmol/L [facility] Potassium 4.1 3.5 - 5.0 mmol/L [facility] Comment: Please note: ??Patients with WBC >100,000 may have falsely elevated Potassium levels. ??For accurate Potassium quantification in these patients send serum separator tube (gold top) for subsequent determinations. ??Contact the Clinical Chemistry Laboratory if there are any questions. Chloride 101 98 - 107 mmol/L [facility] Carbon Dioxide 24 22 - 31 mmol/L [facility] Anion Gap 13 5 - 15 mmol/L [facility] Calcium 9.3 8.5 - 10.5 mg/dL [facility] Est Glomerular Filtration Rate 89 >=60 mL/min/1. 73 m?? [facility] Comment: The eGFR was calculated using the CKD-EPI equation. As with all creatinine based estimates of kidney function, eGFR values calculated with the CKD-EPI equation are not accurate in patients with acute kidney failure, extremes of body mass or the acutely ill. [email or web address] eGFR 103 >=60 mL/min/1. 73 m?? [facility] Comment: The eGFR was calculated using the CKD-EPI equation. As with all creatinine based estimates of kidney function, eGFR values calculated with the CKD-EPI equation are not accurate in patients with acute kidney failure, extremes of body mass or the acutely ill. [email or web address] Blood specimen (specimen) 07/30/2018 4:06 AM EDT 07/30/2018 4:38 AM EDT Narrative Resulting Agency Comment Spec In Lab Deonna T Kathya COMPOSITION MOLDER CHEMISTRY ORDERABL ES Performing Organization Address [facility] Co de Phone Number [facility] [place] [address] * EKG 12 Lead (07/29/2018 11:04 PM EDT) Ventricular rate 101 BPM MUSE SYSTEM Atrial Rate 104 BPM MUSE SYSTEM P-R Interval 176 ms MUSE SYSTEM QRS Duration 78 ms MUSE SYSTEM Q-T Interval 380 ms MUSE SYSTEM QTC Calculated (Bezet) 492 ms MUSE SYSTEM Calculated P [place] 106 degrees MUSE SYSTEM Calculated R [place] 26 degrees MUSE SYSTEM Calculated T [place] 167 degrees MUSE SYSTEM INTERPRETATION Probable Atrial flutter with variable A-V block PVCs vs abbarrently conducted supraventricular beats Abnormal ECG When compared with ECG of 29-JUL-2018 07:21, No significant change was found Confirmed by MD PAT, KURTIS ([id number]) on 07/30/2018 4:45:35 PM MUSE SYSTEM 07/29/2018 11:0 4 PM EDT 07/30/2018 4:45 PM EDT Deonna T Kathya COMPOSITION MOLDER ECG ORDERABLES Performing Organization Address [facility] de Phone Number MUSE SYSTEM * NENO W LMTD SPECTRAL DOPPLER COLOR DOPPLER (07/29/2018 3:33 PM EDT) EF 65 HEARTLAB SYSTEM Anatomical Region Laterality Modality Other 07/29/2018 Narrative 07/29/2018 3:51 PM EDT Procedure: ?Transesophageal Echocardiogram Patient: ?YOAN Haines ?(Age): 1945(72y) Med Rec#: ? [id number] ?Sex: ?M ? [place] ? [facility] [place]t / Wt: ??188(cm)/97(kg) Pt. Loc: ?[facility] ?BSA: ?2.24 Study Date: ?? 07/29/2018 ?Pt. Type: Tape: ? Referring: CLAUDIA JONES Reading: Ant Suarez ([id number]) Scoring Machine Operator: Tricia Donis ([id number]) Interpreting Fellow: Tricia Donis ([id number]) Diagnosis: *Unspecified atrial fibrillation (I48.91) Rhythm: ? [...] supervision of Dr. Suarez. ?The [facility] [place] protocols for [place]ENO procedures in [...] 07/29/2018 15:50:44 Images reviewed and interpretation verified [facility] Cardiac Ultrasound Laboratory Procedure Note Ant Suarez MD - 07/29/2018 Procedure: Transesophageal Echocardiogram Patient: YOAN AVELAR(Age): 1945(72y) Med Rec#: [id number] Sex: M [place] [facility] [place] Ht / Wt: 188(cm)/97(kg) Pt. Loc: [facility] BSA: 2.24 Study Date: 07/29/2018 Pt. Type: Tape: Referring: CLAUDIA JONES Reading: Ant Suarez ([id number]) Scoring Machine Operator: Tricia Donis ([id number]) Interpreting Fellow: Tricia Donis ([id number]) Diagnosis: *Unspecified atrial fibrillation (I48.91) Rhythm: A-Fib [...] supervision of Dr. Suarez. The [facility] [place] protocols for NENO procedures in [...] 07/29/2018 15:50:44 Images reviewed and interpretation verified [facility] Ul[facility]ound [facility] Deonna Rasheed APRN ECHO ORDERABLES * Urine Hold (07/29/2018 1:38 PM EDT) Hold, Urine Sample in lab. [facility] Urine specimen (specimen) Urine / Unknown 07/29/2018 1:38 PM EDT 07/29/2018 2:45 PM EDT Elena Hooks APRN URINE ORDERABLES [facility] [place] [address] * Urinalysis with reflex Culture (07/29/2018 1:38 PM EDT) Glucose, Urine Dipstick Negative Negative mg/dL [facility] Protein, Urine Dipstick Negative Negative mg/dL [facility] Bilirubin, Urine Dipstick Negative Negative mg/dL [facility] Comment: Clinical correlation required for positive Urine Bilirubin results as false positive may occur with some drugs and drug related products. If a false positive is suspected a serum total bilirubin should be considered if clinically indicated. Urobilinogen, Urine Dipstick Normal Normal mg/dL [facility] pH, Urn (dipstick) 5.0 5.0 - 8.0 [facility] Blood, Urine Dipstick Negative Negative mg/dL [facility] Ketone, Urine Dipstick Negative Negative mg/dL [facility] Nitrite, Urine Dipstick Negative Negative [facility] Leukocytes, Urine Dipstick Negative Negative mcL [facility] Appearance, Urine Dipstick Clear Clear [facility] Specific [place] Urine Automated 1.020 1.002 - 1.030 [facility] Color, Urine Dipstick Yellow Yellow [facility] Reflex to Culture No [facility] Urine specimen obtained by clean catch procedure (specimen) 07/29/2018 1:38 PM EDT 07/29/2018 2:45 PM EDT Narrative Resulting Agency Comment Spec In Lab Elena Hooks APRN URINE ORDERABLES [facility] [place] [id number] * EKG 12 Lead (07/29/2018 7:21 AM EDT) Ventricular rate 84 BPM MUSE SYSTEM Atrial Rate 375 BPM MUSE SYSTEM QRS Duration 72 ms MUSE SYSTEM Q-T Interval 400 ms MUSE SYSTEM QTC Calculated (Bezet) 472 ms MUSE SYSTEM Calculated R [place] 9 degrees MUSE SYSTEM Calculated T [place] 10 degrees MUSE SYSTEM INTERPRETATION Atrial fibrillation Abnormal ECG When compared with ECG of 28-JUL-2018 08:44, (unconfirmed) No significant change was found I personally reviewed the tracing and edited the fellows interpretation Confirmed by fellow MD Korin, Gregorio ([id number]) on 07/29/2018 2:47:56 PM Confirmed by MD Colton, Hmuble White ([id number]) on 07/29/2018 4:42:19 PM MUSE SYSTEM 07/29/2018 7:21 AM EDT 07/29/2018 4:42 PM EDT Deonna Ordoñezr COMPOSITION MOLDER ECG ORDERABLES MUSE SYSTEM * (ABNORMAL) Differential, Automated (07/29/2018 5:17 AM EDT) Neutrophil % 50.1 % [facility] Neutrophil Absolute 7.84(H) 1.70 - 6.10 x10(3)/[facility] LABORATORY Lymph % 11.6 % [facility] Lymphocytes Abs 1.8 0.9 - 3.2 x10(3)/[facility] Monocyte % 6.9 % [facility] Monocyte Abs 1.1(H) 0.3 - 0.9 x10(3)/[facility] Eos % 30.7 % [facility] Eosinophils Abs 4.8(H) 0.0 - 0.4 x10(3)/[facility] Basophil % 0.3 % [facility] Baso Absolute 0.0 0.0 - 0.1 x10(3)/[facility] Immature Gran % 0.40 % [facility] Comment: Immature granulocytes(IG's)percentage and absolute count will include metamyelocytes, myelocytes, and promyelocytes. Blood smears from CBCs yielding IG's will be scanned manually for concordance. If this scan disagrees with the automated IG or if promyelocytes are noted, a manual differential will be performed. Immature Gran Absolute 0.06(H) 0.00 - 0.04 x10(3)/ L [facility] Blood specimen (specimen) 07/29/2018 5:17 AM EDT 07/29/2018 5:44 AM EDT Narrative Resulting Agency Comment Spec In Lab Deonna Ordoñezr COMPOSITION MOLDER HEMATOLOGY ORDERAB LES [facility] [place] [address] * (ABNORMAL) Hemogram (07/29/2018 5:17 AM EDT) White Blood Cell 15.6(H) 4.0 - 9.5 x10(3)/[facility] LABORATORY Red Blood Cell 4.93 4.58 - 5.54 x10(6)/ L [facility] Hemoglobin 15.7 13.7 - 16.5 gm/dL [facility] Hematocrit 45.2 40.5 - 48.5 % [facility] Mean Cell Volume 91.7 82.9 - 93.1 fL [facility] Mean Cell Hemoglobin 31.8 27.5 - 32.1 pg [facility] Mean Cell Hemoglobin Concentration 34.7 32.0 - 35.7 gm/dL [facility] Platelet 208 145 - 357 x10(3)/[facility] LABORATORY RDW Standard Deviation 42.3 36.0 - 45.0 [facility] LABORATORY RDW coefficient of variation 12.7 11.4 - 13.8 % [facility] Mean Platelet Volume 11.1 7.6 - 12.9 fL [facility] NRBC% auto 0.0 % [facility] NRBC Absolute 0.000 0.000 - 0.000 x10(3)/[facility] Blood specimen (specimen) 07/29/2018 5:17 AM EDT 07/29/2018 5:44 AM EDT Narrative Resulting Agency Comment Spec In Lab Deonna Rasheed COMPOSITION MOLDER HEMATOLOGY ORDERAB LES [facility] [place] [address] * Magnesium (07/29/2018 5:17 AM EDT) Magnesium 0.85 0.69 - 1.07 mmol/L [facility] Blood specimen (specimen) 07/29/2018 5:17 AM EDT 07/29/2018 5:44 AM EDT Narrative Resulting Agency Comment Spec In Lab Deonna Elizabeth WoodKathyaradha GARCIA CHEMISTRY ORDERABL ES [facility] [place] [address] * (ABNORMAL) BMP w/fasting Glucose (07/29/2018 5:17 AM EDT) Glucose Fasting 107(H) 65 - 99 mg/dL [facility] Comment: ?Fasting* Glucose Interpretive Criteria [...] of Diabetes Mellitus, Position Statement from the [place] Diabetes Association. ??Diabetes Care, Volume 33, Supplement 1, Dec 2009 Blood Urea Nitrogen 20 10 - 20 mg/dL [facility] Creatinine 0.86 0.80 - 1.50 mg/dL [facility] Sodium 139 135 - 145 mmol/L [facility] Potassium 4.3 3.5 - 5.0 mmol/L [facility] Comment: Please note: ??Patients with WBC >100,000 may have falsely elevated Potassium levels. ??For accurate Potassium quantification in these patients send serum separator tube (gold top) for subsequent determinations. ??Contact the Clinical Chemistry Laboratory if there are any questions. Chloride 102 98 - 107 mmol/L [facility] Carbon Dioxide 25 22 - 31 mmol/L [facility] Anion Gap 12 5 - 15 mmol/L [facility] Calcium 9.4 8.5 - 10.5 mg/dL [facility] Est Glomerular Filtration Rate 87 >=60 mL/min/1. 73 m?? [facility] Comment: The eGFR was calculated using the CKD-EPI equation. As with all creatinine based estimates of kidney function, eGFR values calculated with the CKD-EPI equation are not accurate in patients with acute kidney failure, extremes of body mass or the acutely ill. [email or web address] [place] [place] eGFR 100 >=60 mL/min/1. 73 m?? [facility] Comment: The eGFR was calculated using the CKD-EPI equation. As with all creatinine based estimates of kidney function, eGFR values calculated with the CKD-EPI equation are not accurate in patients with acute kidney failure, extremes of body mass or the acutely ill. [email or web address] Blood specimen (specimen) 07/29/2018 5:17 AM EDT 07/29/2018 5:44 AM EDT Narrative Resulting Agency Comment Spec In Lab Deonan Rasheed APRN CHEMISTRY ORDERABL ES [facility] [place] [id number] * CT Cervical Spine wo Contrast (07/28/2018 [...] acute cervical spine fracture. Elena Hooks [facility] ORDER[facility]LES * CT Head wo Contrast [...] * POCT Glucose (07/28/2018 9:12 AM EDT) [facility] Glucose, POC 191 65 - 199 mg/dL [facility] Comment: Supplemental ranges: <140 mg/dL before meals <180 mg/dL all other times of the day Blood specimen (specimen) 07/28/2018 9:12 AM EDT 07/28/2018 9:12 AM EDT Cameron Mahmood MD POINT OF CARE TEST O RDERABLES [facility] [place] [address] * EKG 12 Lead (07/28/2018 8:44 AM EDT) Ventricular rate 77 BPM MUSE SYSTEM Atrial Rate 357 BPM MUSE SYSTEM QRS Duration 76 ms MUSE SYSTEM Q-T Interval 410 ms MUSE SYSTEM QTC Calculated (Bezet) 463 ms MUSE SYSTEM Calculated R [place] 14 degrees MUSE SYSTEM Calculated T [place] 48 degrees MUSE SYSTEM INTERPRETATION Atrial fibrillation Abnormal ECG When compared with ECG of 28-JUL-2018 07:19, No significant change was found I personally reviewed the tracing and edited the fellows interpretation Confirmed by fellow MD Langley Daniel ([id number]) on 07/29/2018 2:53:27 PM Confirmed by MD Segura Shawn M. ([id number]) on 07/29/2018 4:42:14 PM MUSE SYSTEM 07/28/2018 8:44 AM EDT 07/29/2018 4:42 PM EDT Deonna T Kathya COMPOSITION MOLDER ECG ORDERABLES Performing Organization Address [facility] Co de Phone Number MUSE SYSTEM * EKG 12 Lead (07/28/2018 7:19 AM EDT) Ventricular rate 81 BPM MUSE SYSTEM Atrial Rate 326 BPM MUSE SYSTEM QRS Duration 76 ms MUSE SYSTEM Q-T Interval 402 ms MUSE SYSTEM QTC Calculated (Bezet) 466 ms MUSE SYSTEM Calculated R [place] 7 degrees MUSE SYSTEM Calculated T [place] 63 degrees MUSE SYSTEM INTERPRETATION Atrial fibrillation Abnormal ECG When compared with ECG of 27-JUL-2018 07:24, No significant change was found I personally reviewed the tracing and edited the fellows interpretation Confirmed by fellow MD Langley Daniel ([id number]) on 07/28/2018 8:28:08 AM Confirmed by MD Segura Shawn M. ([id number]) on 07/28/2018 5:49:00 PM MUSE SYSTEM 07/28/2018 7:19 AM EDT 07/28/2018 5:49 PM EDT Deonna T Kathya COMPOSITION MOLDER ECG ORDERABLES Performing Organization Address [facility] Co de Phone Number MUSE SYSTEM * (ABNORMAL) Differential, Automated (07/28/2018 3:54 AM EDT) Neutrophil % 41.8 % [facility] Neutrophil Absolute 6.28(H) 1.70 - 6.10 x10(3)/mc L [facility] Lymph % 13.3 % [facility] Lymphocytes Abs 2.0 0.9 - 3.2 x10(3)/ L [facility] Monocyte % 5.8 % [facility] Monocyte Abs 0.9 0.3 - 0.9 x10(3)/[facility] Eos % 38.3 % [facility] Eosinophils Abs 5.8(H) 0.0 - 0.4 x10(3)/[facility] Basophil % 0.6 % [facility] Baso Absolute 0.1 0.0 - 0.1 x10(3)/[facility] Immature Gran % 0.20 % [facility] Comment: Immature granulocytes(IG's)percentage and absolute count will include metamyelocytes, myelocytes, and promyelocytes. Blood smears from CBCs yielding IG's will be scanned manually for concordance. If this scan disagrees with the automated IG or if promyelocytes are noted, a manual differential will be performed. Immature Gran Absolute 0.03 0.00 - 0.04 x10(3)/[facility] Blood specimen (specimen) 07/28/2018 3:54 AM EDT 07/28/2018 4:10 AM EDT Narrative Resulting Agency Comment Spec In Lab Deonna Rasheed COMPOSITION MOLDER HEMATOLOGY ORDERAB LES Performing Organization Address City/State/[facility] Co de Phone Number [facility] [place] [address] * (ABNORMAL) Hemogram (07/28/2018 3:54 AM EDT) White Blood Cell 15.0(H) 4.0 - 9.5 x10(3)/[facility] Red Blood Cell 5.08 4.58 - 5.54 x10(6)/[facility] Hemoglobin 16.3 13.7 - 16.5 gm/dL [facility] Hematocrit 46.4 40.5 - 48.5 % [facility] Mean Cell Volume 91.3 82.9 - 93.1 fL [facility] Mean Cell Hemoglobin 32.1 27.5 - 32.1 pg [facility] Mean Cell Hemoglobin Concentration 35.1 32.0 - 35.7 gm/dL [facility] Platelet 203 145 - 357 x10(3)/mc L [facility] RDW Standard Deviation 42.5 36.0 - 45.0 [facility] LAB[facility] RDW coefficient of variation 12.6 11.4 - 13.8 % [facility] Mean Platelet Volume 11.0 7.6 - 12.9 [facility] LAB[facility]ATORY NRBC% auto 0.0 % [facility] NRBC Absolute 0.000 0.000 - 0.000 x10(3)/mc L [facility] Blood specimen (specimen) 07/28/2018 3:54 AM EDT 07/28/2018 4:10 AM EDT Narrative Resulting Agency Comment Spec In Lab Deonna Rasheed APRN HEMATOLOGY ORDERAB LES Performing Organization Address City/[facility]/ZIP Co de Phone Number [facility] [place] [address] * Magnesium (07/28/2018 3:54 AM EDT) Magnesium 0.86 0.69 - 1.07 mmol/L [facility] Blood specimen (specimen) 07/28/2018 3:54 AM EDT 07/28/2018 4:10 AM EDT Narrative Resulting Agency Comment Spec In Lab Deonna Rasheed COMPOSITION MOLDER CHEMISTRY ORDERABL ES Performing Organization Address City/[facility]/ZIP Co de Phone Number [facility] [place] [address] * (ABNORMAL) BMP w/fasting Glucose (07/28/2018 3:54 AM EDT) Glucose Fasting 118(H) 65 - 99 mg/dL [facility] Comment: ?Fasting* Glucose Interpretive Criteria [...] of Diabetes Mellitus, Position Statement from the [place] Diabetes Association. ??Diabetes Care, Volume 33, Supplement 1, Dec 2009 Blood Urea Nitrogen 19 10 - 20 mg/dL [facility] Creatinine 0.83 0.80 - 1.50 mg/dL [facility] Sodium 140 135 - 145 mmol/L [facility] Potassium 4.4 3.5 - 5.0 mmol/L [facility] Comment: Please note: ??Patients with WBC >100,000 may have falsely elevated Potassium levels. ??For accurate Potassium quantification in these patients send serum separator tube (gold top) for subsequent determinations. ??Contact the Clinical Chemistry Laboratory if there are any questions. Chloride 103 98 - 107 mmol/L [facility] Carbon Dioxide 26 22 - 31 mmol/L [facility] Anion Gap 11 5 - 15 mmol/L [facility] Calcium 9.7 8.5 - 10.5 mg/dL [facility] Est Glomerular Filtration Rate 88 >=60 mL/min/1. 73 m?? [facility] Comment: The eGFR was calculated using the CKD-EPI equation. As with all creatinine based estimates of kidney function, eGFR values calculated with the CKD-EPI equation are not accurate in patients with acute kidney failure, extremes of body mass or the acutely ill. [email or web address] eGFR 102 >=60 mL/min/1. 73 m?? [facility] Comment: The eGFR was calculated using the CKD-EPI equation. As with all creatinine based estimates of kidney function, eGFR values calculated with the CKD-EPI equation are not accurate in patients with acute kidney failure, extremes of body mass or the acutely ill. [email or web address] Blood specimen (specimen) 07/28/2018 3:54 AM EDT 07/28/2018 4:10 AM EDT Narrative Resulting Agency Comment Spec In Lab Deonna Rasheed APRN CHEMISTRY ORDERABL ES Performing Organization Address [facility]/State/ZIP Co de Phone Number [facility] [place] [address] * CARDIAC CATHETERIZATION (07/27/2018 11:30 AM EDT) Anatomical Region Laterality Modality Other Narrative 07/27/2018 11:39 AM EDT ?[facility] ? Cardiac Catheterization/Intervention Report ? Patient Name: Agata Flores. ? Procedure Date: 07/27/2018 ? A #: [id number] ? Primary Physician: Jose D, Min W ? Case #: [id number] ? File Name: [id number] ? Catheterization Order Number: [id number] ? [facility] ? Final Report [place], [place] ? Patient Name: ? Agata Flores ?ID#: ?[id number] ? : ?1945 ? Procedure Date: ? [...] presented with: unstable angina (w/i 60 days). [place] ?Cardiovascular Society angina class was III. This [...] heart catheterization ?was performed utilizing a 7Fr Posen-Naila catheter. 5,000 units of heparin ?were administered. [...] Note Min Jeffery II, MD - 09/02/2018 [facility] Cardiac Catheterization/Intervention Report Patient Name: Agata Flores Procedure Date: 07/27/2018 A #: [id number] Primary Physician: Min Jeffery Case #: [id number] File Name: [id number] Catheterization Order Number: [id number] [facility] FinalReport [place], [place] Patient Name: Agata Flores ID#:[id number] :1945 Procedure Date: July 27, 2018 Case [...] presented with: unstable angina (w/i 60 days). [place] Cardi[employer] Society angina class was III. This [...] Right heartcatheterization was performed utilizing a 7Fr Posen-Naila catheter. 5,000 units ofheparin were administered. A total of 100cc of Omnipaque were opened xgf316hg of Omnipaque were administered. Radiation: Fluoro time [...] Report Last Ammended: 09/02/2018 10:32 Deonnaelizabeth Rasheed COMPOSITION MOLDER CARDIAC CATH ORDER PARK * ECHO COMPLETE (07/27/2018 9:12 AM EDT) EF 61 HEARTLAB SYSTEM Anatomical Region Laterality Modality Other 07/27/2018 Narrative 07/27/2018 9:27 AM EDT Procedure: ?Transthoracic Echocardiogram Patient: ?YOAN Haines ?(Age): 1945(72y) Med Rec#: ? [id number] ?Sex: ?M ? [place] [facility] [place]Ht / Wt: ??188(cm)/99(kg) Pt. Loc: ?Adult Floor ? BSA: ?2.26 Study Date: ?? 07/27/2018 ?Pt. Type: Inpatient Tape: ? Referring: JAZMIN Reading: Gamaliel Sotelo ([id number]) Scoring Machine Operator: Sander Houser [facility] Diagnosis: *Chest pain, unspecified (R07.9) Indication: [...] ? Mid-Inferior ?Normal ? Mid-Inferoseptal ?Normal ? [place]-Septal ? Normal ? [place]-Anterior ? Normal ? [place]-Lateral ?Normal ? [place]-Inferior ? Normal ? [place]-Tip ?Normal ? This report has been electronically signed by: Gamaliel Sotelo MD ? 07/27/2018 09:26:48 Images reviewed and interpretation verified [facility] Cardiac Ultrasound Laboratory Procedure Note Gamaliel Sotelo MD - 07/27/2018 Procedure: Transthoracic Echocardiogram Patient: YOAN AVELAR(Age): 1945(72y) Med Rec#: [id number] Sex: M [place] [facility] Ht / Wt: 188(cm)/99(kg) Pt. Loc: Adult Floor BSA: 2.26 Study Date: 07/27/2018 Pt. Type: Inpatient Tape: Referring: JAZMIN Reading: Gamaliel Sotelo ([id number]) Scoring Machine Operator: Sander Houser RD Diagnosis: *Chest pain, [...] Normal Mid-Posterolateral Normal Mid-Inferior Normal Mid-Inferoseptal Normal [place]-Septal Normal [place]-Anterior Normal [place]-Lateral Normal [place]-Inferior Normal [place]-Tip Normal This report has been electronically signed by: Gamaliel Sotelo MD 07/27/2018 09:26:48 Images reviewed and interpretation verified [facility] Cardiac Ultrasound Laboratory Deonna T Kathya COMPOSITION MOLDER ECHO ORDERABLES * EKG 12 Lead (07/27/2018 7:24 AM EDT) Pathologist [facility] [place] Ventricular rate 75 BPM MUSE SYSTEM Atrial Rate 166 BPM MUSE SYSTEM QRS Duration 76 ms MUSE SYSTEM Q-T Interval 382 ms MUSE SYSTEM QTC Calculated (Bezet) 426 ms MUSE SYSTEM Calculated R [place] 12 degrees MUSE SYSTEM Calculated T [place] 112 degrees MUSE SYSTEM INTERPRETATION Atrial fibrillation Abnormal ECG When compared with ECG of 26-JUL-2018 11:14, No significant change was found I personally reviewed the tracing and edited the fellows interpretation Confirmed by fellow MD Langley Daniel ([id number]) on 07/27/2018 11:57:52 AM Confirmed by Denys Miller MD ([id number]) on 07/27/2018 2:50:48 PM MUSE SYSTEM 07/27/2018 7:24 AM EDT 07/27/2018 2:50 PM EDT Deonna T Kathya COMPOSITION MOLDER ECG ORDERABLES MUSE SYSTEM * (ABNORMAL) Differential, Automated (07/27/2018 3:46 AM EDT) Pathologist [facility] [place] Neutrophil % 34.6 % [facility] Neutrophil Absolute 5.07 1.70 - 6.10 x10(3)/mc L [facility] Lymph % 18.7 % [facility] Lymphocytes Abs 2.7 0.9 - 3.2 x10(3)/mc L [facility] Monocyte % 5.5 % [facility] Monocyte Abs 0.8 0.3 - 0.9 x10(3)/mc L [facility] Eos % 40.5 % [facility] Eosinophils Abs 5.9(H) 0.0 - 0.4 x10(3)/mc L [facility] Basophil % 0.6 % [facility] Baso Absolute 0.1 0.0 - 0.1 x10(3)/mc L [facility] Immature Gran % 0.10 % [facility] Comment: Immature granulocytes(IG's)percentage and absolute count will include metamyelocytes, myelocytes, and promyelocytes. Blood smears from CBCs yielding IG's will be scanned manually for concordance. If this scan disagrees with the automated IG or if promyelocytes are noted, a manual differential will be performed. Immature Gran Absolute 0.02 0.00 - 0.04 x10(3)/[facility]ORAT[facility] Blood specimen (specimen) 07/27/2018 3:46 AM EDT 07/27/2018 4:06 AM EDT Narrative Resulting Agency Comment Spec In Lab Deonna Rasheed APRN HEMATOLOGY ORDERAB LES [facility] [place] [address] * (ABNORMAL) Hemogram (07/27/2018 3:46 AM EDT) White Blood Cell 14.7(H) 4.0 - 9.5 x10(3)/[facility] LABORAT[facility] Red Blood Cell 4.89 4.58 - 5.54 x10(6)/[facility] Hemoglobin 15.7 13.7 - 16.5 gm/dL [facility] Hematocrit 44.4 40.5 - 48.5 % [facility] Mean Cell Volume 90.8 82.9 - 93.1 fL [facility] Mean Cell Hemoglobin 32.1 27.5 - 32.1 pg [facility] Mean Cell Hemoglobin Concentration 35.4 32.0 - 35.7 gm/dL [facility] Platelet 207 145 - 357 x10(3)/[facility] RDW Standard Deviation 41.4 36.0 - 45.0 fL [facility] RDW coefficient of variation 12.6 11.4 - 13.8 % [facility] Mean Platelet Volume 10.7 7.6 - 12.9 fL [facility] NRBC% auto 0.0 % [facility] NRBC Absolute 0.000 0.000 - 0.000 x10(3)/mc L [facility] Blood specimen (specimen) 07/27/2018 3:46 AM EDT 07/27/2018 4:06 AM EDT Narrative Resulting Agency Comment Spec In Lab Deonna Rasheed COMPOSITION MOLDER HEMATOLOGY ORDERAB LES Performing Organization Address [facility] Co de Phone Number [facility] [place] [address] * Magnesium (07/27/2018 3:46 AM EDT) Magnesium 0.86 0.69 - 1.07 mmol/L [facility] Blood specimen (specimen) 07/27/2018 3:46 AM EDT 07/27/2018 4:06 AM EDT Narrative Resulting Agency Comment Spec In Lab Deonna Rasheed COMPOSITION MOLDER CHEMISTRY ORDERABL ES Performing Organization Address [facility] Phone Number [facility] [place] [address] * (ABNORMAL) BMP w/fasting Glucose (07/27/2018 3:46 AM EDT) Glucose Fasting 111(H) 65 - 99 mg/dL [facility] Comment: ?Fasting* Glucose Interpretive Criteria [...] of Diabetes Mellitus, Position Statement from the [place] Diabetes Association. ??Diabetes Care, Volume 33, Supplement 1, Dec 2009 Blood Urea Nitrogen 19 10 - 20 mg/dL [facility] Creatinine 0.89 0.80 - 1.50 mg/dL [facility] Sodium 138 135 - 145 mmol/L [facility] Potassium 4.4 3.5 - 5.0 mmol/L [facility] Comment: Please note: ??Patients with WBC >100,000 may have falsely elevated Potassium levels. ??For accurate Potassium quantification in these patients send serum separator tube (gold top) for subsequent determinations. ??Contact the Clinical Chemistry Laboratory if there are any questions. Chloride 103 98 - 107 mmol/L [facility] Carbon Dioxide 23 22 - 31 mmol/L [facility] Anion Gap 12 5 - 15 mmol/L [facility] Calcium 9.7 8.5 - 10.5 mg/dL [facility] Est Glomerular Filtration Rate 85 >=60 mL/min/1. 73 m?? [facility] Comment: The eGFR was calculated using the CKD-EPI equation. As with all creatinine based estimates of kidney function, eGFR values calculated with the CKD-EPI equation are not accurate in patients with acute kidney failure, extremes of body mass or the acutely ill. [email or web address] eGFR 99 >=60 mL/min/1. 73 m?? [facility] Comment: The eGFR was calculated using the CKD-EPI equation. As with all creatinine based estimates of kidney function, eGFR values calculated with the CKD-EPI equation are not accurate in patients with acute kidney failure, extremes of body mass or the acutely ill. [email or web address] Blood specimen (specimen) 07/27/2018 3:46 AM EDT 07/27/2018 4:06 AM EDT Narrative Resulting Agency Comment Spec In Lab Deonna Rasheed APRN CHEMISTRY ORDERABL ES [facility] [place] [address] * Cardiac Enzymes (LEB/CGP) (07/26/2018 10:30 PM EDT) [facility] Troponin-T <0.01 0.00 - 0.00 ng/mL [facility] Comment: The 99th percentile for Troponin T is less than 0.01 ng/mL, any detectable cTnT concentration using this assay should be considered elevated. According to the third universal definition of myocardial infarction the following criteria with a clinical presentation consistent with acute myocardial ischemia meets the diagnosis for a myocardial infarction (ME). Detection of a rise and/or fall of cTnT, with at least one value greater than the 99th percentile (> or = 0.01) and with at least one of the following ?? Symptoms of ischemia ?? New or presumed new significant AP-itsckup-M wave (ST-T) changes or new left bundle [...] additional sample may be indicated. Reference: [employer] [place] Definition of Myocardial Infarction. Journal of the [place] College [employer] 2012;60:1581-98 Creatine Kinase 23 0 - 200 unit/L [facility] Blood specimen (specimen) 07/26/2018 10:30 PM EDT 07/26/2018 11:04 PM EDT Narrative Resulting Agency Comment Spec In Lab Deonna Rasheed APRN CHEMISTRY ORDERABL ES [facility] [place] [address] * Cardiac Enzymes (LEB/CGP) (07/26/2018 4:31 PM EDT) [facility] Troponin-T <0.01 0.00 - 0.00 ng/mL [facility] Comment: The 99th percentile for Troponin T is less than 0.01 ng/mL, any detectable cTnT concentration using this assay should be considered elevated. According to the third universal definition of myocardial infarction the following criteria with a clinical presentation consistent with acute myocardial ischemia meets the diagnosis for a myocardial infarction (ME). Detection of a rise and/or fall of cTnT, with at least one value greater than the 99th percentile (> or = 0.01) and with at least one of the following ?? Symptoms of ischemia ?? New or presumed new significant ZL-ndapufl-W wave (ST-T) changes or new left bundle [...] additional sample may be indicated. Reference: [employer] [place] Definition of Myocardial Infarction. Journal of the [place] College [employer] 2012;60:1581-98 Creatine Kinase 22 0 - 200 unit/L [facility] Blood specimen (specimen) 07/26/2018 4:31 PM EDT 07/26/2018 4:48 PM EDT Narrative Resulting Agency Comment Spec In Lab Deonna Rasheed APRN CHEMISTRY ORDERABL ES [facility] [facility] [place] [address] * Hemoglobin A1c (07/26/2018 11:44 AM EDT) Hemoglobin A1c 5.6 4.3 - 5.6 % [facility] Comment: Reference Range: 4.3 - [...] Mellitus, Diabetes Care 2013; 36: Suppl. 1, S67-00 Estimated Average Glucose See note mg/dL [facility] Comment: Estimated Average Glucose not [...] into estimated average glucose values. ??Diabetes Care 2008:31(8):1485-0590. Blood specimen (specimen) Venous Draw / Unknown 07/26/2018 11:44 AM EDT 07/26/2018 12:50 PM EDT Narrative Resulting Agency Comment Spec In Lab Deonna Rasheed APRN CHEMISTRY ORDERABL ES [facility] [place] [address] * TSH (07/26/2018 11:44 AM EDT) Thyroid Stimulating Hormone 3.98 0.27 - 4.20 mlU/ML [facility] Blood specimen (specimen) Venous Draw / Unknown 07/26/2018 11:44 AM EDT 07/26/2018 11:52 AM EDT Narrative Resulting Agency Comment Spec In Lab Deonna Rasheed APRN CHEMISTRY ORDERABL ES [facility] [place] [address] * Scan, Peripheral Blood (07/26/2018 11:44 AM EDT) Pathologist [facility] [place] Plat estimate Normal [facility] RBC Morphology Normal [facility] Blood specimen (specimen) 07/26/2018 11:44 AM EDT 07/26/2018 11:49 AM EDT Narrative Resulting Agency Comment Spec In Lab Janet ALMONTE HEMATOLOGY ORDERABLE S Performing Organization Address City/[facility]/ZIP Co de Phone Number [facility] [place] [address] * (ABNORMAL) Differential, Automated (07/26/2018 11:44 AM EDT) [facility] Neutrophil % 43.7 % [facility] Neutrophil Absolute 6.32(H) 1.70 - 6.10 x10(3)/mc L [facility] Lymph % 11.7 % [facility] Lymphocytes Abs 1.7 0.9 - 3.2 x10(3)/mc L [facility] Monocyte % 5.7 % [facility] Monocyte Abs 0.8 0.3 - 0.9 x10(3)/mc L [facility] Eos % 38.1 % [facility] Eosinophils Abs 5.5(H) 0.0 - 0.4 x10(3)/mc L [facility] Basophil % 0.5 % [facility] Baso Absolute 0.1 0.0 - 0.1 x10(3)/mc L [facility] Immature Gran % 0.30 % [facility] Comment: Immature granulocytes(IG's)percentage and absolute count will include metamyelocytes, myelocytes, and promyelocytes. Blood smears from CBCs yielding IG's will be scanned manually for concordance. If this scan disagrees with the automated IG or if promyelocytes are noted, a manual differential will be performed. Immature Gran Absolute 0.04 0.00 - 0.04 x10(3)/mc L [facility] Blood specimen (specimen) 07/26/2018 11:44 AM EDT 07/26/2018 11:49 AM EDT Narrative Resulting Agency Comment Spec In Lab Janet ALMONTE HEMATOLOGY ORDERABLE S [facility] [place] [address] * (ABNORMAL) Hemogram (07/26/2018 11:44 AM EDT) White Blood Cell 14.4(H) 4.0 - 9.5 x10(3)/mc L [facility] Red Blood Cell 4.73 4.58 - 5.54 x10(6)/mc L [facility] Hemoglobin 14.9 13.7 - 16.5 gm/dL [facility] Hematocrit 43.2 40.5 - 48.5 % [facility] Mean Cell Volume 91.3 82.9 - 93.1 fL [facility] Mean Cell Hemoglobin 31.5 27.5 - 32.1 pg [facility] Mean Cell Hemoglobin Concentration 34.5 32.0 - 35.7 gm/dL [facility] Platelet 209 145 - 357 x10(3)/mc L [facility] RDW Standard Deviation 41.9 36.0 - 45.0 [facility] RDW coefficient of variation 12.7 11.4 - 13.8 % [facility] Mean Platelet Volume 11.1 7.6 - 12.9 fL [facility] NRBC% auto 0.0 % [facility] NRBC Absolute 0.000 0.000 - 0.000 x10(3)/mc L [facility] Blood specimen (specimen) 07/26/2018 11:44 AM EDT 07/26/2018 11:49 AM EDT Narrative Resulting Agency Comment Spec In Lab Janet ALMONTE HEMATOLOGY ORDERABLE S Performing Organization Address [facility] Co de Phone Number [facility] [place] [address] * APTT (07/26/2018 11:44 AM EDT) Partial Thromboplastin Time 34 25 - 37 sec [facility] Comment: The PTT is NOT appropriate for heparin monitoring. Use the Anti-Xa level for heparin monitoring (HEP UFH) or LMWH monitoring (HEP LMW). A PTT less than 37 seconds generally indicates adequate hemostasis. Blood specimen (specimen) 07/26/2018 11:44 AM EDT 07/26/2018 11:49 AM EDT Narrative Resulting Agency Comment Spec In Lab Cameron Mahmood MD HEMATOLOGY ORDERABLE S Performing Organization Address [facility] de Phone Number [facility] [place] [address] * (ABNORMAL) Prothrombin Time (07/26/2018 11:44 AM EDT) Prothrombin Time 13.4(H) 9.4 - 12.5 sec [facility] International Normalization Ratio 1.2 [facility] Comment: An INR <2.0 indicates [...] Lab Cameron Mahmood MD HEMATOLOGY ORDERABLE S [facility] [place] [address] * (ABNORMAL) pro-Brain Natriuretic Peptide (07/26/2018 11:44 AM EDT) NT-proBNP 453(H) <=125 pg/mL [facility] Blood specimen (specimen) 07/26/2018 11:44 AM EDT 07/26/2018 11:49 AM EDT Narrative Resulting Agency Comment Spec In Lab Cameron Mahmood MD CHEMISTRY ORDERABLES Performing Organization Address City/[facility]/ZIP Co de Phone Number [facility] [place] [address] * Cardiac Enzymes (LEB/CGP) (07/26/2018 11:44 AM EDT) Pathologist [facility] [place] Troponin-T <0.01 0.00 - 0.00 ng/mL [facility] Comment: The 99th percentile for Troponin T is less than 0.01 ng/mL, any detectable cTnT concentration using this assay should be considered elevated. According to the third universal definition of myocardial infarction the following criteria with a clinical presentation consistent with acute myocardial ischemia meets the diagnosis for a myocardial infarction (ME). Detection of a rise and/or fall of cTnT, with at least one value greater than the 99th percentile (> or = 0.01) and with at least one of the following ?? Symptoms of ischemia ?? New or presumed new significant WP-[id number]-[id number] wave (ST-T) changes or new left bundle [...] additional sample may be indicated. Reference: Third [place] Definition of Myocardial Infarction. Journal of the [place] College [employer]iology 2012;60:1581-98 Creatine Kinase <20 0 - 200 unit/L [facility] Blood specimen (specimen) 07/26/2018 11:44 AM EDT 07/26/2018 11:49 AM EDT Narrative Resulting Agency Comment Spec In Lab Deonna Rasheed COMPOSITION MOLDER CHEMISTRY ORDERABL ES [facility] [place] [address] * Basic Metabolic Panel (non-fasting) (07/26/2018 11:44 AM EDT) Glucose 118 65 - 199 mg/dL [facility] Comment:Diabetes: >=200 mg/d L plus symptoms Blood Urea Nitrogen 20 10 - 20 mg/dL [facility] Creatinine 0.82 0.80 - 1.50 mg/dL [facility] Sodium 137 135 - 145 mmol/L [facility] Potassium 4.2 3.5 - 5.0 mmol/L [facility] Comment: Please note: ??Patients with WBC >100,000 may have falsely elevated Potassium levels. ??For accurate Potassium quantification in these patients send serum separator tube (gold top) for subsequent determinations. ??Contact the Clinical Chemistry Laboratory if there are any questions. Chloride 102 98 - 107 mmol/L [facility] Carbon Dioxide 24 22 - 31 mmol/L [facility] Anion Gap 11 5 - 15 mmol/L [facility] Calcium 9.4 8.5 - 10.5 mg/dL [facility] Est Glomerular Filtration Rate 88 >=60 mL/min/1. 73 m?? [facility] Comment: The eGFR was calculated using the CKD-EPI equation. As with all creatinine based estimates of kidney function, eGFR values calculated with the CKD-EPI equation are not accurate in patients with acute kidney failure, extremes of body mass or the acutely ill. http://Wrightspeed/DHMCnkf eGFR 102 >=60 mL/min/1. 73 m?? [facility] Comment: The eGFR was calculated using the CKD-EPI equation. As with all creatinine based estimates of kidney function, eGFR values calculated with the CKD-EPI equation are not accurate in patients with acute kidney failure, extremes of body mass or the acutely ill. http://[employer]rightspeed/DHMCnkf Blood specimen (specimen) 07/26/2018 11:44 AM EDT 07/26/2018 11:49 AM EDT Narrative Resulting Agency Comment Spec In Lab Cameron Mahmood MD CHEMISTRY ORDERABLES Performing Organization Address City/[facility] Co de Phone Number [facility] [place] [address] * EKG 12 Lead (07/26/2018 11:14 AM EDT) Ventricular rate 93 BPM MUSE SYSTEM Atrial Rate 86 BPM MUSE SYSTEM QRS Duration 76 ms MUSE SYSTEM Q-T Interval 366 ms MUSE SYSTEM QTC Calculated (Bezet) 455 ms MUSE SYSTEM Calculated R [place] 30 degrees MUSE SYSTEM Calculated T [place] 83 degrees MUSE SYSTEM INTERPRETATION Atrial fibrillation with premature ventricular or aberrantly conducted complexes Abnormal ECG No previous ECGs available Confirmed by MD Maki Kevin ([id number]) on 07/26/2018 6:28:42 PM MUSE SYSTEM 07/26/2018 11:1 4 AM EDT 07/26/2018 6:28 PM EDT Cameron Mahmood MD ECG ORDERABLES Performing Organization Address [facility] de Phone Number MUSE SYSTEM * SCAN DOC: HOLE DIGGER (07/26/2018 12:00 AM EDT) Anatomical Region Laterality [...] Given 07/31/2018 8:31 AM EDT 1 drop fentaNYL 50 mcg/mL multi-dose injection ONCE PRN, Starting on Fri07/27/18 at 1038, Until Fri07/27/18 at 1123, Intra-Operative (Intra-Procedure), Routine Given 07/27/2018 10:38 AM EDT 25 mcg heparin (porcine) injection ONCE PRN, Starting on Fri07/27/18 at 1047, Until Fri07/27/18 at 1123, Cath (Intra-Procedure), Routine Given 07/27/2018 10:47 AM EDT 5,000 Units magnesium oxide (MAG-OX) tablet 400 mg 400 mg, Oral, DAILY, First dose on 08/01/18 at 1200, Until Discontinued, Routine Given 08/01/2018 12:24 PM EDT 400 mg metoprolol tartrate (LOPRESSOR) tablet 25 mg 25 mg, Oral, EVERY 6 HOURS SCHEDULED, First dose on Fri07/26/18 at 1300, Until Discontinued, Routine Given 08/01/2018 12:24 PM EDT 25 mg Given 08/01/2018 5:32 AM EDT 25 mg Given 08/01/2018 12:16 AM EDT 25 mg midazolam (PF) (VERSED) 1 mg/mL multi-dose injection ONCE PRN, Starting on Fri07/27/18 at 1038, Until Fri07/27/18 at 1123, Cath (Intra-Procedure), Routine Given 07/27/2018 10:38 AM EDT 1 mg nitroGLYcerin 100 mcg/mL intracoronary dilution ONCE PRN, Starting on Fri07/27/18 at 1047, Until Fri07/27/18 at 1123, Cath (Intra-Procedure), Routine Given 07/27/2018 10:47 AM EDT 100 mcg rivaroxaban (XARELTO) tablet 20 mg 20 mg, [...] Given 07/31/2018 8:31 AM EDT 1 drop verapamil (ISOPTIN) injection ONCE PRN, Starting on Fri07/27/18 at 1046, Until Fri07/27/18 at 1123, Administer over 2 Minutes, Cath (Intra-Procedure) Given 07/27/2018 10:46 AM EDT 2.5 mg documented in this encounter Active and Recently Administered Medications Times are shown in EDT. Scheduled Medication Order 07/30/2018 07/31/2018 08/01/2018 aspirin EC tablet 81 mg 81 mg, Oral, DAILY, First dose on Fri07/27/18 at 0900, Until Discontinued, Routine 0810 (Given - Provider: Amadeo Espinosa, MORIAH)1054 (JAN Hold - Provider: Admin Adt - Reason: Transfer to a Procedural area)1116 (JAN Unhold - Provider: Admin Adt)1155 (JAN Hold - Provider: Admin Adt - Reason: Transfer to a Procedural area)1217 (JAN Unhold - Provider: Admin Adt) 0831 (Given - Provider: Amadeo Espinosa RN) 0909 (Given - Provider: Holly Alexandre RN) brimonidine (ALPHAGAN) 0.2 % ophthalmic solution 1 drop(Linked Group 1) 1 drop, Both Eyes, 2 TIMES DAILY, First dose on Fri07/26/18 at 2100, Until Discontinued, Routine 0810 (Given - Provider: Amadeo Espinosa, MORIAH)1054 (MAR Hold - Provider: Admin Adt - Reason: Transfer to a Procedural area)1116 (MAR Unhold - Provider: Admin Adt)1155 (MAR Hold - Provider: Admin Adt - Reason: Transfer to a Procedural area)1217 (MAR Unhold - Provider: Admin Adt)2120 (Given - Provider: Jordon Cat RN) 0831 (Given - Provider: Amadeo Espinosa RN)2119 (Given - Provider: Mally Malcolm, RN) 0913 (Given - Provider: Holly Alexandre, RN) dofetilide (TIKOSYN) capsule 250 mcg (CANCELED) 250 mcg, Oral, 2 TIMES DAILY, First dose on Fri07/31/18 at 1100, Until Discontinued, Routine, Please indicate the name of the EP Attending who authorized the use of Dofetilide: First Dose Allowed - Awaiting authorizing provider approval 1041 (Given - Provider: Amadeo Espinosa RN)2119 (Given - Provider: Mally Malcolm, RN) 0907 (Hold - Provider: Holly Alexandre, RN [...] nefazodone, norfloxacin, quinine, zafrilukast (inhibitors of cytochrome [id number]) may increase dofetilide levels; consider decreasing the [...] Discontinued, Routine 1224 (Given - Provider: Holly Alexandre RN) metoprolol tartrate (LOPRESSOR) tablet 25 mg [...] area)1200 (Automatically Held - Provider: Admin Adt)1217 (JAN Unhold - Provider: Admin Adt)1801 (Given - Provider: Amadeo Espinosa RN) 0015 (Given - Provider: Jordon Cat RN)0639 (Given - Provider: Jordon Cat RN)1205 (Given - Provider: Amadeo Espinosa RN)1724 (Given - Provider: Amadeo Espinosa RN) 0016 (Given - Provider: Mally Malcolm, RN)0532 (Given - Provider: Mally Malcolm, RN)1224 (Given - Provider: Holly Alexandre RN - Comment: ok wil Sharp) rivaroxaban (XARELTO) tablet 20 mg 20 mg, Oral, DAILY WITH DINNER, First dose on 07/27/18 at 1700, Until Discontinued, Must be administered with food., Routine, Restricted anticoagulant, choose the most appropriate response: Approved indication of non-valvular atrial fibrillation 1054 ([facility] Hold - Provider: Admin Adt - Reason: Transfer to a Procedural area)1116 ([facility] Unhold - Provider: Admin Adt)1155 ([facility] Hold - Provider: Admin Adt - Reason: Transfer to a Procedural area)1217 ([facility] Unhold - Provider: Admin Adt)1654 (Given - Provider: Amadeo Espinosa RN) 1723 (Given - Provider: Amadeo Espinosa RN) rosuvastatin (CRESTOR) tablet 10 mg 10 mg, Oral, EVERY EVENING, First dose (after last modification) on Fri07/26/18 at 1700, Until Discontinued, Routine 1054 ([facility] Hold - Provider: Admin Adt - Reason: Transfer to a Procedural area)1116 ([facility] Unhold - Provider: Admin Adt)1155 ([facility] Hold - Provider: Admin Adt - Reason: Transfer to a Procedural area)1217 ([facility] Unhold - Provider: Admin Adt)1654 (Given - Provider: Amadeo Espinosa RN) 1723 (Given - Provider: Amadeo Espinosa RN) timolol (TIMOPTIC) 0.5 % ophthalmic solution 1 drop(Linked Group 1) 1 drop, Both Eyes, 2 TIMES DAILY, First dose on Fri07/26/18 at 2100, Until Discontinued, Routine 0810 (Given - Provider: Amadeo Espinosa RN)1054 ([facility] Hold - Provider: Admin Adt - Reason: Transfer to a Procedural area)1116 ([facility] Unhold - Provider: Admin Adt)1155 ([facility] Hold - Provider: Admin Adt - Reason: Transfer to a Procedural area)1217 ([facility] Unhold - Provider: Admin Adt)2120 (Given - Provider: Jordon Cat, RN) 0831 (Given - Provider: Amadeo Espinosa, MORIAH)212 (Given - Provider: Mally Malcolm, MORIAH) 0909 (Given - Provider: Holly Alexandre, RN) Continuous Medication Order 07/30/2018 07/31/2018 08/01/2018 sodium chloride 0.9% infusion (CANCELED) 100 mL/hr, Intravenous, CONTINUOUS, Starting on 07/29/18 at 1115, Until Tash 07/30/18 at 1651, Please give 1 L total 1007 (New Bag - Provider: Amadeo Espinosa RN)1054 ([facility] Hold - Provider: Admin Adt - Reason: Transfer to a Procedural area)1116 ([facility] Unhold - Provider: Admin Adt)1149 (Stopped - Provider: Amadeo Espinosa RN)1154 (New Bag - Provider: Lalo Forrester CRNA)1155 ([facility] Hold - Provider: Admin Adt - Reason: Transfer to a Procedural area)1217 ([facility] Unhold - Provider: Admin Adt) PRN Medication Order 07/30/2018 07/31/2018 08/01/2018 acetaminophen (TYLENOL) tablet 650 mg 650 mg, Oral, EVERY 4 HOURS PRN, Starting on 07/26/18 at 1242, Until 08/01/18 at 1705, Pain, Headaches, Maximum dose of acetaminophen is 4000 mg from all sources in 24 hours., Routine 1054 ([facility] Hold - Provider: Admin Adt - Reason: Transfer to a Procedural area)1116 ([facility] Unhold - Provider: Admin Adt)1155 ([facility] Hold - Provider: Admin Adt - Reason: Transfer to a Procedural area)1217 ([facility] Unhold - Provider: Admin Adt) [...] last 24 to 72 hours., Routine 1054 (JAN Hold - Provider: Admin Adt - Reason: Transfer to a Procedural area)1116 (JAN Unhold - Provider: Admin Adt)1155 (JAN Hold - Provider: Admin Adt - Reason: Transfer to a Procedural area)1217 (JAN Unhold - Provider: Admin Adt) Linked Groups [...] Routine documented in this encounter Care Teams Spar Finisher Relationship Specialty Start Date End Date Agata Barrera DO [address] [place] [address] PCP - General Family Medicine 07/01/18 documented as of this encounter
--- OUTSIDE RECORDS SUMMARY | 2024-07-21 19:31 | XMS_ITS | Encounter Summary ---
Author Organization [facility] [place] [address] Care Team Providers Care Log Snaker Name Role Phone Camacho Irwin MD Primary Care Provider [phone] Encounter Details Date Type Department Care Team (Late Contact Info) Description 03/31/2015 External Results [place] [address] Sharad Lazaro MD [facility] [place] [address] Social History Tobacco Use Types Packs/Day Years [...] AM EDT Office Visit Cardiology at [address] [phone] Gonzales Torres MD [facility] [place] [address] documented as of this encounter Procedures Procedure Name Priority Date/Time Associated Diagnosis Comments EXTERNAL LAB INFECTIOUS DISEASE RESULTS PANEL Routine 03/27/2015 documented in this encounter Results * (ABNORMAL) Infectious Disease External Results (03/27/2015) White Blood Cell 5.76(Exte rnal Lab) Hemoglobin 11.1(EXTE RNAL/ABN) 13.5 - 17.5 Hematocrit 34.5(EXTE RNAL/ABN) 41.0 - 53.0 Platelet 394(Exter nal Lab) Sedimentation Rate Automated 72(ROOF PLUMBER AL/ABN) C-Reactive Protein High Sensitivity 2.8(Exter nal Lab) Blood Urea Nitrogen 18(Molding Machine Tender al Lab) Creatinine 0.9(Exter nal Lab) Sodium 141(Exter nal Lab) 137 - 147 Potassium 4.2(Exter nal Lab) 3.4 - 5.3 03/27/2015 Historical Provider POINT OF CARE RAMONITA T ORDERABLES documented in this encounter Visit Diagnoses Not on filedocumented in this encounter Care Teams Log Snaker Relationship Specialty Start Date End Date Camacho Irwin MD [address] [place] [address] PCP - General 01/27/15 06/30/18 documented as of this encounter
--- OUTSIDE RECORDS SUMMARY | 2024-07-21 19:31 | XMS_ITS | Encounter Summary ---
Author Organization [place] [address] Care Team Providers Care Printmaker Name Role Phone Camacho Barrera DO Primary Care Provider [phone] Encounter Details Date Type Department Care Team (Late st Contact Info) Description 07/24/2018 Telephone Cardiology at [address] [address] Gregorio Langley MD [facility] [place] [address] Social History Tobacco Use Types Packs/Day Years [...] Miscellaneous Notes * Telephone Encounter - Gregorio Langley - 07/24/2018 3:23 PM EDT Telephone Triage Note Initial Contact Date: 07/24/18 Initial contact time: 1524h Referring Provider: Elisha Patient Location: [facility] Presenting Symptoms per OSH: Escalating lightheadedness/shortness of breath Anterior CP started yesterday a/w exertion resolves with rest Showed up there chest pain free Past Medical History: CAD s/p PCI 2005. Had antecedent LH/dyspnea then. Cath at [facility] afib on xarelto, last administration last night Pertinent Diagnostic Findings: Vitals: BP 120/97 HR 70 SaO2 RA EKG : afib with frequent PVC, ischemically bland Troponin : negative Cr 0.9 Hb 15 Plts 218 OSH Interventions: asa Assessment: Patient presents with his anginal equivalent, having stable angina pectoris. Reasonable to pursue cardiac cath, but would wait for xarelto to wash out. Plan: Admit locally, hold xarelto without heparin bridge Transfer Friday PM for cardiac catheterization documented in this encounter Plan of Treatment Upcoming Encounters Date Type Department Care Team (Late st Contact Info) Description 09/08/2024 9:40 AM EDT Office Visit Cardiology at [address] [id number] Gonzales Torres MD [facility] [place] [address] documented as of this encounter Visit Diagnoses Not on filedocumented in this encounter Care Teams Printmaker Relationship Specialty Start Date End Date Camacho Barrera DO [address] [place] [address] PCP - General Family Medicine 07/01/18 documented as of this encounter
--- OUTSIDE RECORDS SUMMARY | 2024-07-21 19:31 | XMS_ITS | Encounter Summary ---
Author Organization [facility] [place] [address] Care Team Providers Care Claims Collector Name Role Phone Camacho Barrera DO Primary Care Provider [phone] Encounter Details Date Type Department Care Team (Late st Contact Info) Description 07/24/2018 External Results [address] [place] [phone] Social History Tobacco Use Types Packs/Day Years [...] AM EDT Office Visit Cardiology at [address] [place] [address] Gonzales Torres MD [facility] [place] [address] documented as of this encounter Procedures Procedure Name Priority Date/Time Associated Diagnosis Comments ECG SCAN Routine 07/24/2018 documented in this encounter Results * Scan Doc: ECG (07/24/2018) Historical Provider MD MEDIA MGR SCAN EX T ORDR/RSLT documented in this encounter Visit Diagnoses Not on filedocumented in this encounter Care Teams Claims Collector Relationship Specialty Start Date End Date Camacho Barrera DO [address] [place] [address] PCP - General Family Medicine 07/01/18 documented as of this encounter
--- OUTSIDE RECORDS SUMMARY | 2024-07-21 19:31 | XMS_ITS | Encounter Summary ---
[place] [address] Care Team Providers Care Base Wad Operator Adjuster Name Role Phone Camacho Irwin MD Primary Care Provider [phone] [phone] Encounter Details Date Type Department Care Team (Late st Contact Info) Description 12/19/2016 Notes [place] [address] Torres Day MD [facility] DR [place] [address] Social History Tobacco Use Types Packs/Day Years [...] as of this encounter Progress Notes * Torres Day - 12/19/2016 6:20 PM EST 71 YO M fell on ice had back pain came to [facility]. 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 Appears stable on imaging. Reported to be Neuro intact. REcommend patient ambulate and if no concerning symptoms or pain then can obtain upright films and follow upin several weeks locally or with a non op provider in spine center if cannot find local follow up. documented in this encounter Plan of Treatment Upcoming Encounters Date Type Department Care Team (Late st Contact Info) Description 09/08/2024 9:40 AM EDT Office Visit Cardiology at [address] [phone] Gonzales Torres MD [facility] [place] [address] documented as of this encounter Visit Diagnoses Not on filedocumented in this encounter Care Teams Base Wad Operator Adjuster Relationship Specialty Start Date End Date Camacho Irwin MD [address] [place] [address] PCP - General 01/27/15 06/30/18 documented as of this encounter
--- OUTSIDE RECORDS SUMMARY | 2024-07-21 19:31 | XMS_ITS | Encounter Summary ---
[place] [address] Care Team Providers Care Decal Cutter Name Role Phone Camacho Irwin MD Primary Care Provider [phone] [phone] Reason for Visit * Reason Comments Follow-up Encounter Details Date Type Department Care Team (Late st Contact Info) Description 04/06/2015 11:00 AM EDT [place] [id number] Gaudencio Mata MD [facility] [place] [address] Brain abscess Discharge Disposition: Home Social History [...] Sign Reading Time Taken Comments Blood Pressure 144/87 04/06/2015 10:22 AM EDT Pulse 63 04/06/2015 10:22 AM EDT Temperature 36.6 ??C (97.8 ??F) 04/06/2015 10:22 AM E DT Respiratory Rate 16 04/06/2015 10:22 AM EDT Oxygen Saturation - - Inhaled Oxygen Concentration - - Weight 93.4 kg (206 lb) 04/06/2015 10:22 AM EDT Height - - Body Mass Index 26.45 01/27/2015 10:00 PM EST documented in this encounter Progress Notes * Gaudencio Mata MD - 04/06/2015 9:20 PM EDT INFECTIOUS DISEASE OUTPATIENT CLINIC FOLLOW UP NOTE Active ID issues: Brain abscess with strep milleri Recent hx of diverticulitis Subjective: C/o left sided lower ext weakness which is improving slightly Finished antibiotics 1 week ago Denies fevers,chills,rigors Denies headaches,visual changes Denies cough,shortness of breath Denies abdominal pain,diarrhea Pertinent Medications: Not on antibiotics Physical Exam Gen: Not in distress HEENT: PERRLA. Pulm: CTAB. Nl effort. Cardio: RRR, no M/G/R. GI: Abd S/ND/NT w/o rebound or guarding. Neuro: left sided weakness with hyperreflexia in left lower extremity Ext: b/l LE no edema Labs 04/06/15 WBC-8.0 CRP- 0.6 ESR-20 Micro No new micro data Imaging: MRI brain 03/27/15 Satisfactory progress postdrainage of right frontal abscess. Edema has diminished somewhat and no progression of enhancement is seen. Impression: Camacho Flores is a 69 y.o. male with htn,hld,cad p/w left sided weakness to OSH Ct imaging suggestive of ischemic infract and started on plavix+aspirin weakness worsened which prompted MRI revealingrigh frontal lesion suspicious for metastasis so was transferred to [facility] for definitive management.At [facility] neurosurgery eval s/p OR with stereotactic biopsy of brain on 01/27,cultures yielded Strep milleri (s) pen YOLANDE 0.032.Discharged on Iv ceftriaxone(although allergic to penicillin tolerated ceftriaxone without any issue) 2 gm every 12 hrs for at least 6 weeks.He developed neutropenia likely secondary to keppra vs ceftriaxone?. Admitted to OSH with diverticulitis antibiotics were switched to Iv meropenem,repeat MRI of brain revealed significant decrease in size of abscess.Mr Flores continues to have left sided weakness mainly in lower extremity,expresses concerns that his seizure medicationplaces him at risk of fall so he is scared of going to physical therapy Recommendation: No indication for continuing antibiotics He would benefit from physical therapy ID service will sign off for now,please call [phone] with questions Case Discussed with Dr Tejas Mata MD Infectious disease Fellow Pager [phone] ID Attending I reviewed the patient's history with Dr. Mata during the visit and I agree with his history, as detailed above. In brief, we have been following this 69 y.o. man during his course of therapyfor a S. milleri brain abscess. Mr. Flores has received more than 8 weeks of antibiotics and presents today doing well, albeit with some residual left-sided weakness. His course has been complicated by an episode of profound neutropenia and diverticulitis, which was attributed to a drug (either Keppra or ceftriaxone). He finished his course of therapy with meropenem, the last dose of which was a week ago. A recent MRI showed dramatic improvement in the size of the abscess and the surrounding brent a. I interviewed and examined the patient myself, and my examination confirms Dr. Mata's findings. Dr. Mata's assessment and plan were formulated in discussion with me at the time of the visit, and I agree with them as documented. Mr. Flores has probably been adequately treated, with a standard duration of therapy and a favorable repeat MRI scan. He has not had any recurrence of signs or symptoms following discontinuation of his therapy last week. No further evaluation or treatment is needed unless he develops recurrent symptoms. His questions were answered to his satisfaction. documented in this encounter Miscellaneous Notes * Addendum Note - Star Winston MD - 04/07/2015 7:53 PM EDTAddended by: STAR WINSTON on: 04/07/2015 07:53 PM Modules accepted: Level of Service documented in this encounter Plan of Treatment Upcoming Encounters Date Type Department Care Team (Late st Contact Info) Description 09/08/2024 9:40 AM EDT Office Visit Cardiology at [address] [address] [facility] [place] [address] documented as of this encounter Visit Diagnoses Diagnosis Brain abscess Intracranial abscess documented in this encounter Care Teams Decal Cutter Relationship Specialty Start Date End Date Camacho Irwin MD [address] [place] [address] PCP - General 01/27/15 06/30/18 documented as of this encounter
--- OUTSIDE RECORDS SUMMARY | 2024-07-21 19:31 | XMS_ITS | Encounter Summary ---
[place] [address] Care Team Providers Care Endoscopy Technican Name Role Phone Camacho Barrera DO Primary Care Provider [phone] Reason for Visit * Auth/Cert Specialty Diagnoses / Procedures Referred By Contac t Referred To Contact Diagnoses Chest pain ANGINA ?CAD Procedures CARDIAC CATHETERIZATION URG IPI Referral ID Status Reason Start Date Expiration Date Visits Re quested Visits Authorized [id number] 1 1 Encounter Details Date Type Department Care Team (Late st Contact Info) Description 07/29/2018 2:15 PM EDT Anesthesia [place] [address] Faith Del Rosario MD [facility] [place] [address] Emily Tobias Anesthesia Record Procedure Summary Procedure Name Responsible Anesthesiologist Anesthesia Start Time Anesthesia Stop Time TRANSESOPHAGEAL ECHO DURING CATH/EP PROCEDURE Faith Del Rosario MD 07/29/18 1415 07/29/18 1521 Events Date Time Event Comment 07/29/2018 1415 AN Verify 1415 Start 1415 An Start Data 1446 An Induction 1446 Anesthesia Ready 1446 Quick Note Neno placed 1450 1505 Procedure Stop 1518 an stop data 1521 Recovery or ICU Handoff Sandee ent care was transferred to the destination unit staff after review of the patient's medical history, current anesthetic/surgical status and plan, according to the Provider Handoff Checklist. 1521 Stop Meds Name Total Propofol 200 mg * Agents Name O2 Air N2O O2 Auxiliary Flowmeter 1 * Blood No blood administrations on file. Lines, Drains, and Airways Type Details Placement Removal Incision 01/27/15; parietal region; 07/29/22 (LDA cleanup utility RA#[id number]); 1715 (LDA cleanup utility RA#[id number]) 01/27/15 0000 by Aleja Steel, MORIAH 07/29/22 1715 by Pb Bourgeois (RETIRED) PICC Line - Single Lumen 01/28/15; 1405; median cubital vein right (antecubital fossa); LDA not present upon assessment; 05/20/23; 1156 01/28/15 1405 by Sveta Westbrook RN 05/20/23 1156 by Jimbo Montoya NRP (RETIRED) Peripheral IV Line - Single Lumen 07/28/18; 0958; basilic vein (medial side of arm), left; [id number] catheter system; 20 gauge, 1 in length; [...] OR Notes * Anesthesia Postprocedure Evaluation - Shawna Brunner MD - 07/29/2018 3:21 PM EDT [facility] Department of Anesthesiology Post-procedure Note Patient: Camacho Flores Procedure Summary Date Anesthesia Start Anesthesia Stop Room / Location 07/29/18 1415 1521 [facility] [address] / [facility] CATH [facility] Procedure Diagnosis Provider Responsible Provider TRANSESOPHAGEAL ECHO DURING CATH/EP PROCEDURE (N/A ) (?CAD) Ant Suarez MD Franko, Denise M, MD All Anesthesia Providers: Anesthesiologist: Faith Del Rosario MD Chief Technical Officer: Shawna Brunner MD Most Recent Vitals: 07/29/18 1146 BP: 112/79 Pulse: 79 Resp: 18 Temp: 36.8 ??C (98.2 ??F) SpO2: 97% Pain Patient Location: PACU/SDP Level of Consciousness: Conscious but Sleepy Pain Management: Satisfactory Analgesia PONV: None Cardiovascular Status: At Baseline Respiratory Status: Supplemental O2 (NC or FM) and Stable Respiratory Status Postoperative Fluid Status: Intravascular EUvolemia Possible Anesthetic Complications: NONE apparent at time of evaluation Final Primary Anesthesia Type: MAC (The anesthetic type performed was the same as planned.) Comments: * Anesthesia Preprocedure Evaluation - Faith Del Rosario MD - 07/28/2018 7:14 AM EDT Pre-Anesthesia Evaluation for: Camacho Flores a 72 y.o. male. Procedure(s): TR[facility] Patient Active Problem List Diagnosis ??? [...] performed by Jose Small MD at [facility] MAIN OR ??? PRO STEREOTACTIC CPTR ASSTD PX CRANIAL, INTRADURAL Right 01/27/2015 STEREOTACTIC COMPUTER-ASSTD NAVIGATIONAL CRANIAL INTRADURAL performed by Jose Small MD at [facility] MAIN OR Social History Substance Use Topics [...] been reviewed. Physical Exam: Most Recent Vitals: 07/28/18 0631 BP: 130/76 Pulse: 80 Resp: Temp: SpO2: Body mass index is 27.65 kg/(m^2). Height: 188 cm (6' 2) Weight: 97.7 kg (215 lb 6.2 oz) Airway Assessment: Mallampati: II TM distance: >3 FB Neck ROM: full Cardiovascular Assessment: Pulmonary Assessment: Dental Assessment: Misc Assessment: Anesthesia Plan: ASA 3 MAC, with a(n) intravenous induction NENO Obesity HLD HTN CAD Afib MAC Appropriately NPO. No hx of trouble with anesthesia in the past. Informed Consent: Anesthetic plan and risks discussed with patient. Plan discussed with NEUROLOGY EPILEPSY PHYSICIAN, resident and attending. PAT Staff Note documented in this encounter Plan of Treatment Upcoming Encounters Date Type Department Care Team (Late st Contact Info) Description 09/08/2024 9:40 AM EDT Office Visit Cardiology at [address] [address] Gonzales Torres MD [facility] [place] [address] documented as of this encounter Visit Diagnoses Not on filedocumented in this encounter Administered Medications Inactive Administered Medications - up to 3 most recent administrations Medication Order MAR Action Action Date Dose Rate Site propofol (DIPRIVAN) 10 mg/mL bolus injection (Anesthesia) Intravenous, PRN, Starting on Fri07/29/18 at 1444, Until Fri07/29/18 at 1521, Anesthesia Intra-op Given 07/29/2018 2:59 PM EDT 20 mg Given 07/29/2018 2:57 PM EDT 20 mg Given 07/29/2018 2:54 PM EDT 30 mg documented in this encounter Care Teams Endoscopy Technican Relationship Specialty Start Date End Date Camacho Barrera DO [address] [place] [address] PCP - General Family Medicine 07/01/18 documented as of this encounter
--- OUTSIDE RECORDS SUMMARY | 2024-07-21 19:31 | XMS_ITS | Encounter Summary ---
[place] [address] Care Team Providers Care Solder Sprayer Name Role Phone Camacho Irwin MD Primary Care Provider [phone] Encounter Details Date Type Department Care Team (Latest Contact Info) Description 12/19/2016 - 12/19/2016 11:59 PM EST Hospital Encounter [place] [address] Jimbo Wadsworth MD [facility] [place] [address] Pain Discharge Disposition: Home Social History Tobacco Use [...] AM EDT Office Visit Cardiology at [address] [place] [address] Gonzales Torres MD [facility] [place] [address] documented as of this encounter Procedures Procedure Name Priority Date/Time Associated Diagnosis Comments FILM LIBRARY STORAGE ONLY CT CHEST Routine 12/19/2016 12:00 AM EST Pain documented in this encounter Results * Film Library- Storage Only CT Chest (12/19/2016 12:00 AM EST) Narrative [facility] - 12/19/2016 5:23 PM EST This exam is for storage only and is auto-finalizing. Jimbo Wadsworth MD G FILM LIBRARY ORD ERABLES [place], [place] documented in this encounter Visit Diagnoses Diagnosis Pain Generalized pain documented in this encounter Care Teams Solder Sprayer Relationship Specialty Start Date End Date Camacho Irwin MD [address] [place] [address] PCP - General 01/27/15 06/30/18 documented as of this encounter
--- OUTSIDE RECORDS SUMMARY | 2024-07-21 19:32 | XMS_ITS | Encounter Summary ---
Author Organization [facility] [place] [address] Care Team Providers Care Contract Writer Name Role Phone Camacho Irwin MD Primary Care Provider [phone] [phone] Encounter Details Date Type Department Care Team (Latest Contact Info) Description 03/27/2015 3:57 PM EDT - 03/27/2015 11:59 PM EDT Hospital [place] [phone] CLINIC, Nino Mclean MD [facility] [address] Brain abscess Discharge Disposition: Home Social History [...] Sig Dispensed Refills Start Date End Date MEROpenem (MERREM) 1 gram Recon Soln Inject into the vein. 2 grams every 8 hours 03/28/2015 lisinopril (PRINIVIL;ZESTRIL) 10 mg Tablet Take 10 mg by mouth daily. 03/28/2015 atorvastatin (LIPITOR) 10 mg Tablet Take 10 mg by mouth daily. 05/21/2023 documented as of this encounter Plan of Treatment Upcoming Encounters Date Type Department Care Team (Late st Contact Info) Description 09/08/2024 9:40 AM EDT Office Visit Cardiology at [address] [place] [address] Gonzales Torres MD [facility] [place] [address] documented as of this encounter Procedures Procedure Name Priority Date/Time Associated Diagnosis Comments MRI BRAIN WWO CONTRAST (GENERIC) Routine 03/27/2015 6:19 PM EDT Brain abscess documented in this encounter Results * MRI brain with/WO contrast (03/27/2015 6:19 PM EDT) Anatomical Region Laterality Modality Head Magnetic Resonan ce 03/27/2015 6:19 PM EDT Impressions 03/28/2015 8:12 AM EDT IMPRESSION: Satisfactory progress postdrainage of right frontal abscess. Edema has diminished somewhat and no progression of enhancement is seen. Narrative 03/28/2015 8:12 AM EDT EXAMINATION: MR BRAIN W/WO CONTRAST CLINICAL HISTORY: f/u brain abscess TECHNIQUE: Examination is done before and after intravenous administration of 10 mL of Gadavist COMPARISON: Prior MRI of the brain dated 03/14/2015 FINDINGS: Since prior study, there is been slight reduction in the amount of edema associated with the right frontoparietal lesion. Enhancement is stable to slightly decreased, and no new areas of abnormality are identified. Findings are consistent with post surgical change in treatment of previous brain abscess. No new or acute lesions are identified. The remainder the study is stable and generally unremarkable. Procedure Note Ben Becker MD - 03/28/2015 EXAMINATION: MR BRAIN W/WO CONTRAST CLINICAL HISTORY: f/u brain abscess TECHNIQUE: Examination is done before and after intravenous administrationof 10 mL of Gadavist COMPARISON: Prior MRI of the brain dated 03/14/2015 FINDINGS: Since prior study, there is been slight reduction in the amount of edema associated with the right frontoparietal lesion. Enhancement is stableto slightly decreased, and no new areas of abnormality are identified.Findings are consistent with post surgical change in treatment of previous brainabscess. No new or acute lesions are identified. The remainder the study is stableand generally unremarkable. IMPRESSION IMPRESSION: Satisfactory progress postdrainage of right frontal abscess. Edema has diminished somewhat and no progression of enhancement is seen. Nino Villa MD IMG MRI ORDERAB LES documented in this encounter Visit Diagnoses Diagnosis Brain abscess Intracranial abscess documented in this encounter Administered Medications Inactive Administered Medications - up to 3 most recent administrations Medication Order MAR Action Action Date Dose Rate Site gadobutrol (GADAVIST) 1 mMol/mL injection 10 mL 10 mL, Intravenous, ONCE PRN, 1 dose, Starting on Fri03/27/15 at 1804, Until Fri03/27/15 at 1805, Per Protocol, Routine Given 03/27/2015 6:05 PM EDT 10 mLs documented in this encounter Care Teams Contract Writer Relationship Specialty Start Date End Date Camacho Irwin MD [address] [place] [address] PCP - General 01/27/15 06/30/18 documented as of this encounter
--- OUTSIDE RECORDS SUMMARY | 2024-07-21 19:32 | XMS_ITS | Encounter Summary ---
Author Organization [facility] [place] [address] Care Team Providers Care Closet Builder Name Role Phone Camacho Irwin MD Primary Care Provider [phone] [phone] Encounter Details Date Type Department Care Team (Late Contact Info) Description 03/23/2015 External Results [place] [address] Sharad Lazaro MD [facility] [place] [address] Social History Tobacco Use Types Packs/Day Years [...] 9:40 AM EDT Office Visit Cardiology at [address] [address] Gonzales Torers MD [facility] [place] [address] documented as of this encounter Procedures Procedure Name Priority Date/Time Associated Diagnosis Comments EXTERNAL LAB INFECTIOUS DISEASE RESULTS PANEL Routine 03/20/2015 documented in this encounter Results * (ABNORMAL) Infectious Disease External Results (03/20/2015) White Blood Cell 9.04(Exte rnal Lab) Hemoglobin 11.1(EXTE RNAL/ABN) 13.5 - 17.5 Hematocrit 33.2(EXTE RNAL/ABN) 41.0 - 53.0 Platelet 327(Exter nal Lab) Sedimentation Rate Automated 89(WOOL WASHER AL/ABN) C-Reactive Protein High Sensitivity 47.8(EXTE RNAL/ABN) Blood Urea Nitrogen 18(Benzene Washer al Lab) Creatinine 0.8(Exter nal Lab) Sodium 139(Exter nal Lab) 137 - 147 Potassium 4.0(Exter nal Lab) 3.4 - 5.3 03/20/2015 Historical Provider POINT OF CARE RAMONITA T ORDERABLES documented in this encounter Visit Diagnoses Not on filedocumented in this encounter Care Teams Closet Builder Relationship Specialty Start Date End Date Camacho Irwin MD [address] [place] [address] PCP - General 01/27/15 06/30/18 documented as of this encounter
--- OUTSIDE RECORDS SUMMARY | 2024-07-21 19:32 | XMS_ITS | Encounter Summary ---
Author Organization [facility] [place] [address] Care Team Providers Care Pharmacy Specialist Name Role Phone Camacho Irwin MD Primary Care Provider [phone] [phone] Encounter Details Date Type Department Care Team (Late st Contact Info) Description 02/28/2015 Notes [place] [address] Davida Duff, RN 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 Hernandez- Patient has appt in ID clinic 03/02/15-will evaluate then documented in this encounter Plan of Treatment Upcoming Encounters Date Type Department Care Team (Late st Contact Info) Description 09/08/2024 9:40 AM EDT Office Visit Cardiology at [address] [address] Gonzales Torres MD [facility] [address] documented as of this encounter Visit Diagnoses Not on filedocumented in this encounter Care Teams Pharmacy Specialist Relationship Specialty Start Date End Date Camacho Irwin MD [address] [place] [address] PCP - General 01/27/15 06/30/18 documented as of this encounter
--- OUTSIDE RECORDS SUMMARY | 2024-07-21 19:32 | XMS_ITS | Encounter Summary ---
[place] [address] Care Team Providers Care Tenderizer Tender Name Role Phone Camacho Irwin MD Primary Care Provider +1 [phone] Encounter Details Date Type Department Care Team (Late st Contact Info) Description 02/14/2015 11:30 AM EDT Office Visit [place] [address] Iraj Hernandez MD [facility] [place] [address] Encounter for medication monitoring; joint terminal attack controller current use of antibiotics; Brain abscess Discharge Disposition: Home Social History [...] Sign Reading Time Taken Comments Blood Pressure 137/69 02/14/2015 10:53 AM EDT Pulse 55 02/14/2015 10:53 AM EDT Temperature 36.8 ??C (98.2 ??F) 02/14/2015 10:53 AM E DT Respiratory Rate 20 02/14/2015 10:53 AM EDT Oxygen Saturation - - Inhaled Oxygen Concentration - - Weight 95.7 kg (211 lb) 02/14/2015 10:53 AM EDT Height - - Body Mass Index 27.09 01/27/2015 10:00 PM EST documented in this encounter Progress Notes * Iraj Hernandez MD - 02/14/2015 11:02 AM EDT Subjective: Patient ID: Camacho Flores is a 69 y.o. 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 He has been on IV ceftriaxone 2 g BID infused in [facility]. He is anticipated to get a repeat MRI in early March. Hewas initially in rehab, developed a GI viral infection and fell, hit his head, broke his nose and had a w/u at the hospital with no change. He is not home and doing quite well. Denies any issues at all. No rash, no SUE, no neuro sx. He has been on decadron BID. He started to drive. He started using a cane instead of a walker. Still a little unstable on his feet due to imbalance. Review of Systems Constitutional: Negative. HENT: Negative. Eyes: Negative. Respiratory: Negative. Cardiovascular: Negative. Gastrointestinal: Negative. Genitourinary: Negative. Musculoskeletal: Negative. Skin: Negative. Neurological: Negative. Imbalance with walking, improved. Psychiatric/Behavioral: Negative. Objective: Physical Exam Constitutional: He appears well-developed and well-nourished. No distress. HENT: Head: Normocephalic and atraumatic. Mouth/Throat: Oropharynx is clear and moist. No oropharyngeal exudate. Bruise around nose and left eye Eyes: Conjunctivae are normal. Pupils are equal, round, and reactive to light. No scleral icterus. Cardiovascular: Normal rate, regular rhythm and normal heart sounds. Exam reveals no friction rub. No murmur heard. Pulmonary/Chest: Effort normal and breath sounds normal. No respiratory distress. He has no wheezes. He has no rales. Abdominal: Soft. Bowel sounds are normal. He exhibits no distension. There is no tenderness. Musculoskeletal: He exhibits no edema. Lymphadenopathy: He has no cervical adenopathy. Neurological: Left foot drop, weakness in leg flexion and weakness of arm extension. Walks with unstable gait - foot drop and compensation due to this. Using a cane. Skin: Skin is warm and dry. No rash noted. picc site looks fine Labs OK (scanned) except 02/08 - ALT 112, AST 28 02/13 - ALT 108, AST 31 Assessment and Plan: Brain Abscess: Strep milleri. Continue the antibiotics, tolerating well with mid increase in ALT that is stable and not associated with AST increase. Will follow, no symptoms. Neuro status improved, but still with deficits. Plans to go once daily on the decadron for 3 days then stop, but will touch base with NSG to ensurethis is OK. I asked him not to drive until he gets clearance for neuro given his neuro deficits, etc. He remains on keppra. Follow with us and NSG on March 02, MRI that day also so decisions can be made about duration. 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 documented in this encounter Plan of Treatment Upcoming Encounters Date Type Department Care Team (Late st Contact Info) Description 09/08/2024 9:40 AM EDT Office Visit Cardiology at [address] [address] Gonzales Torres MD [facility] [place] [address] documented as of this encounter Visit Diagnoses Diagnosis Encounter for medication monitoring Encounter for therapeutic drug monitoring half-way current use of antibiotics Encounter for long-term (current) use of antibiotics Brain abscess Intracranial abscess documented in this encounter Care Teams Tenderizer Tender Relationship Specialty Start Date End Date Camacho Irwin MD [address] [place] [address] PCP - General 01/27/15 06/30/18 documented as of this encounter
--- OUTSIDE RECORDS SUMMARY | 2024-07-21 19:32 | XMS_ITS | Encounter Summary ---
Author Organization [facility] [place] [address] Care Team Providers Care Cutter Tender Name Role Phone Camacho Irwin MD Primary Care Provider [phone] [phone] Encounter Details Date Type Department Care Team (Latest Contact Info) Description 03/14/2015 7:30 AM EDT - 03/14/2015 11:59 PM EDT [place] [id number] CLINIC, Nino Mclean MD [facility] [place] [address] Brain abscess Discharge Disposition: Home Social History [...] AM EDT Office Visit Cardiology at [address] [place] [address] [facility] [place] [address] documented as of this encounter Procedures Procedure Name Priority Date/Time Associated Diagnosis Comments MRI BRAIN WWO CONTRAST (GENERIC) Routine 03/14/2015 8:17 AM EDT Brain abscess documented in this encounter Results * MRI brain with/WO contrast (03/14/2015 8:17 AM EDT) Anatomical Region Laterality Modality Head Magnetic Resonan ce 03/14/2015 8:17 AM EDT Impressions 03/14/2015 2:12 PM EDT IMPRESSION: Minimal residual enhancement and surrounding vasogenic edema involving the precentral gyrus at the site of drained parenchymal abscess. This report was reviewed by Vivi Varela at 03/14/2015 2:07 PM Film and interpretation reviewed by the attending Narrative 03/14/2015 2:12 PM EDT EXAMINATION: MR BRAIN W/WO CONTRAST CLINICAL HISTORY: follow-up brain abscess TECHNIQUE: MRI brain before and after administration of 10 mL of Gadavist intravenously. COMPARISON: MRI brain 01/27/2015 and 01/26/2015. FINDINGS: Right parietal merritt hole is present. ??Near complete interval resolution of ring enhancing right posterior frontal mass. Residual contrast enhancement is present along the region of instrumentation and in the precentral gyrus. There is corresponding T2 hypointensity and susceptibility related signal loss, indicating blood products. Surrounding T2 prolongation has decreased since the prior examination. No significant mass effect. No new mass, evidence of infarction, or enhancing lesion. Right-sided dural thickening and thin holohemispheric subdural collection is present. Ventricular system is normal. Mild paranasal sinus mucosal thickening, greatest in a posterior right ethmoid air cell. Mastoid air cells are clear. Bone marrow is otherwise normal in signal. Similar appearance of intradural calcified atheromatous disease of the right vertebral artery with short segment of narrowing distally. Procedure Note Vivi Varela MD - 03/14/2015 EXAMINATION: MR BRAIN W/WO CONTRAST CLINICAL HISTORY: follow-up brain abscess TECHNIQUE: MRI brain before and after administration of 10 mL ofGadavist intravenously. COMPARISON: MRI brain 01/27/2015 and 01/26/2015. FINDINGS: Right parietal merritt hole is present. Near complete interval resolution ofring enhancing right posterior frontal mass. Residual contrast enhancement ispresent along the region of instrumentation and in the precentral gyrus. Thereis corresponding T2 hypointensity and susceptibility related signal loss, indicating blood products. Surrounding T2 prolongation has decreased sincethe prior examination. No significant mass effect. No new mass, evidence of infarction, or enhancing lesion. Right-sided dural thickening and thin holohemispheric subdural collection is present. Ventricular system is normal. Mild paranasal sinus mucosal thickening,greatest in a posterior right ethmoid air cell. Mastoid air cells are clear. Bonemarrow is otherwise normal in signal. Similar appearance of intraduralcalcified atheromatous disease of the right vertebral artery with short segment of narrowing distally. IMPRESSION IMPRESSION: Minimal residual enhancement and surrounding vasogenic edema involvingthe precentral gyrus at the site of drained parenchymal abscess. This report was reviewed by Vivi Varela at 03/14/2015 2:07 PM Film and interpretation reviewed by the attending Iraj Hernandez MD IM MRI ORDERABLE S documented in this encounter Visit Diagnoses Diagnosis Brain abscess Intracranial abscess documented in this encounter Administered Medications Inactive Administered Medications - up to 3 most recent administrations Medication Order MAR Action Action Date Dose Rate Site gadobutrol (GADAVIST) 1 mMol/mL injection 10 mL 10 mL, Intravenous, ONCE PRN, 1 dose, Starting on Fri03/14/15 at 0827, Until Fri03/14/15 at 0800, Per Protocol, Routine Given 03/14/2015 8:00 AM EDT 10 mLs documented in this encounter Care Teams Cutter Tender Relationship Specialty Start Date End Date Camacho Irwin MD [address] [facility] [place] [address] PCP - General 01/27/15 06/30/18 documented as of this encounter
--- OUTSIDE RECORDS SUMMARY | 2024-07-21 19:32 | XMS_ITS | Encounter Summary ---
Author Organization [facility] [place] [address] Care Team Providers Care Automatic Packer Operator Name Role Phone Camacho Irwin MD Primary Care Provider [phone] [phone] Encounter Details Date Type Department Care Team (Late Contact Info) Description 02/15/2015 External Results [place] [address] Sharad Lazaro MD [facility] [place] [address] Social History Tobacco Use Types Packs/Day Years [...] 9:40 AM EDT Office Visit Cardiology at [address] [phone] Gonzales Torres MD [facility] [place] [address] documented as of this encounter Procedures Procedure Name Priority Date/Time Associated Diagnosis Comments EXTERNAL LAB INFECTIOUS DISEASE RESULTS PANEL Routine 02/13/2015 documented in this encounter Results * (ABNORMAL) Infectious Disease External Results (02/13/2015) White Blood Cell 13.13(EXT ERNAL/ABN ) Hemoglobin 13.9(Exte rnal Lab) 13.5 - 17.5 Hematocrit 40.6(Exte rnal Lab) 41.0 - 53.0 Platelet 245(Exter nal Lab) Sedimentation Rate Automated 17(Baggage Handling Supervisor al Lab) C-Reactive Protein High Sensitivity 1.9(Exter nal Lab) Creatinine 0.7(EXTER NAL/ABN) Potassium 4.3(Exter nal Lab) 3.4 - 5.3 02/13/2015 Historical Provider POINT OF CARE RAMONITA T ORDERABLES documented in this encounter Visit Diagnoses Not on filedocumented in this encounter Care Teams Automatic Packer Operator Relationship Specialty Start Date End Date Camacho Irwin MD [address] [facility] [place] [address] PCP - General 01/27/15 06/30/18 documented as of this encounter
--- OUTSIDE RECORDS SUMMARY | 2024-07-21 19:32 | XMS_ITS | Encounter Summary ---
Author Organization [facility] [place] [address] Care Team Providers Care Restorative Coordinator Name Role Phone Camacho Irwin MD Primary Care Provider [phone] [phone] Encounter Details Date Type Department Care Team (Late Contact Info) Description 03/16/2015 External Results [place] [address] [facility] [place] [address] Social History Tobacco Use Types Packs/Day Years [...] AM EDT Office Visit Cardiology at [address] [phone] [facility] [place] [address] documented as of this encounter Procedures Procedure Name Priority Date/Time Associated Diagnosis Comments EXTERNAL LAB INFECTIOUS DISEASE RESULTS PANEL Routine 03/13/2015 documented in this encounter Results * (ABNORMAL) Infectious Disease External Results (03/13/2015) White Blood Cell 20.81(EXT ERNAL/ABN ) Hemoglobin 12.8(EXTE RNAL/ABN) 13.5 - 17.5 Hematocrit 37.9(EXTE RNAL/ABN) 41.0 - 53.0 Platelet 201(Exter nal Lab) Sedimentation Rate Automated 38(INSTRUMENTAL MUSICIAN AL/ABN) C-Reactive Protein High Sensitivity 5.1(EXTER NAL/ABN) Blood Urea Nitrogen 19(INSTRUMENTAL MUSICIAN AL/ABN) Creatinine 0.9(Exter nal Lab) Sodium 141(Exter nal Lab) 137 - 147 Potassium 3.9(Exter nal Lab) 3.4 - 5.3 03/13/2015 Historical Provider POINT OF CARE RAMONITA T ORDERABLES documented in this encounter Visit Diagnoses Not on filedocumented in this encounter Care Teams Restorative Coordinator Relationship Specialty Start Date End Date Camacho Irwin MD [address] [place] [address] PCP - General 01/27/15 06/30/18 documented as of this encounter
--- OUTSIDE RECORDS SUMMARY | 2024-07-21 19:32 | XMS_ITS | Encounter Summary ---
Author Organization [facility] [place] [address] Care Team Providers Care Embosser Apprentice Name Role Phone Camacho Irwin MD Primary Care Provider [phone] [phone] Encounter Details Date Type Department Care Team (Late Contact Info) Description 03/06/2015 Orders Only Hematology [place] [address] Pilar Sotelo [facility] HEMATOLOGY/[place] [address] Social History Tobacco Use Types Packs/Day Years [...] 9:40 AM EDT Office Visit Cardiology at [address] [phone] Gonzales Torres MD [facility] [place] [address] documented as of this encounter Visit Diagnoses Not on filedocumented in this encounter Care Teams Embosser Apprentice Relationship Specialty Start Date End Date Camacho Irwin MD [address] [place] [address] PCP - General 01/27/15 06/30/18 documented as of this encounter
--- OUTSIDE RECORDS SUMMARY | 2024-07-21 19:32 | XMS_ITS | Encounter Summary ---
[place] [address] Care Team Providers Care Foundation Coordinator Name Role Phone Camacho Irwin MD Primary Care Provider +1 [phone] Encounter Details Date Type Department Care Team (Late st Contact Info) Description 01/27/2015 4:26 PM EST Anesthesia [place] [phone] Luis Carlos Thacker MD [facility] [place] [address] Doris Watson CRNA [facility] [place] [address] Anesthesia Record Procedure Summary Procedure Name Responsible Anesthesiologist Anesthesia Start Time Anesthesia Stop Time @STEREOTACTIC BX,ASP, OR EXC.-INTRACRANIAL LESION, W/SCAN (WRVU 18.79) (Right: Head) Luis Carlos Thacker MD 01/27/15 1626 01/27/15 1805 Events Date Time Event Comment 01/27/2015 1615 1626 AN Verify 1626 Start 1626 Quick Note 400 cc platelet s up. Cosigned with Munira Toribio RN. Pt ID, MRN, , blood type, W#, expiration date reviewed. 1628 An Start Data 1635 An Induction 1637 An Intubation 1639 Anesthesia Ready 171 Procedure Start Time out com plete Surgeon request to administer no antibiotic until notified to do so. 175 Extubation/LMA Out Extubated to oral airway, face mask O2, exchanging well, to PACU 175 an stop data 1805 Stop Oral airway rem brooke, Monitors on, VSS, report and updates given, orders confirmed, handoff complete. Patient following commands appropriately, movement in extremities x4 to command and responds verbally. Pupils equal and reactive. Meds Name Total fentaNYL 150 mcg IV Lidocaine 60 mg Propofol 180 mg Rocuronium 10 mg PHENYLephrine 400 mcg ePHEDrine 20 mg Ondansetron 4 mg Dexamethasone 4 mg Neostigmine 3 mg Glycopyrrolate 0.4 mg Propofol INF 387.1 mg Vancomycin 1 g Lactated Ringers 500 mL * Agents Name O2 Air N2O Sevoflurane (et) * Blood No blood administrations on file. Lines, Drains, and Airways Type Details Placement Removal Incision 01/27/15; parietal region; 07/29/22 (LDA cleanup utility RA#[id number]); 1715 (LDA cleanup utility RA#[id number]) 01/27/15 0000 by Aleja Steel RN 07/29/22 1715 by Pb Bourgeois (RETIRED) Peripheral IV Line - Single Lumen 01/27/15; 1447; median cubital vein right (antecubital fossa); [id number] catheter system; 18 gauge; distraction, tolerated well, appears comfortable, age-appropriate response; 01/28/15; 1234 01/27/15 1447 by Katharine Oakley RN 01/28/15 1234 by Sveta Westbrook, RN ETT Mask Ventilation: Adjunct (2); ETT Type: Cuffed, Oral; ETT Size: 7.5 mm; Mac Blade: 3; Notes: Asleep, Pre-O2, Stylette, Cricoid Pressure; Attempts: 1; Laryngoscopy Grade: 1; ETT Placement Verified By: Auscultation, Capnometry, Visual; Secured at Teeth: 22 cm; Inserted by: Catarino BENJAMIN; Removal Date: 01/27/15; Removal Time: 175101/27/15 1637 by Munira Garcias CRNA 01/27/15 1752 by Munira Garcias CRNA documented in this encounter Social History Tobacco Use Types Packs/Day Years Used Date Smoking Tobacco: Never Assessed Sex and Gender Information Value Date Recorded Sex Assigned at Male 10/01/2021 4:04 PM EDT Gender Identity Not on file Sexual Orientation Not on file documented as of this encounter OR Notes * Anesthesia Preprocedure Evaluation - Sharad Sultana MD - 01/27/2015 3:03 PM EST Pre-Anesthesia Evaluation for: Camacho Flores a 69 y.o. male. Procedure(s): @STEREOTACTIC BX,ASP, OR EXC.-INTRACRANIAL LESION, W/SCAN STEREOTACTIC COMPUTER-ASSTD NAVIGATIONAL CRANIAL INTRADURAL There are no active problems to display for this patient. No past medical history on file. No past surgical history on file. History Substance Use Topics ??? Smoking status: Not on file ??? Smokeless tobacco: Not on file ??? Alcohol Use: Not on file History Drug Use Not on file Allergies not on file Medications: MAR and/or home medications have been reviewed. Physical Exam: Filed Vitals: 01/27/15 1449 BP: Pulse: 69 Temp: 36.9 ??C (98.4 ??F) Resp: 16 There is no height on file to calculate BMI. Weight - Scale: 97.977 kg (216 lb) Airway Assessment: Mallampati: II TM distance: >3 FB Neck ROM: full Cardiovascular Assessment: Pulmonary Assessment: Dental Assessment: [facility] Assessment: Anesthesia Plan: ASA 3 emergent general, with a(n) intravenous induction Pt presented to ED from OSH with one sided weakness. Received plavix at osh. Currently in MRI, for stereotactic brain biopsy GA/ETT Region - Other Informed Consent: Anesthetic plan and risks discussed with patient. Plan discussed with TRAVEL ASSISTANT. [facility]. Assessment: documented in this encounter Plan of Treatment Upcoming Encounters Date Type Department Care Team (Late st Contact Info) Description 09/08/2024 9:40 AM EDT Office Visit Cardiology at [address] [phone] Gonzales Torres MD [facility] [place] [address] documented as of this encounter Visit Diagnoses Not on filedocumented in this encounter Administered Medications Inactive Administered Medications - up to 3 most recent administrations Medication Order MAR Action Action Date Dose Rate Site dexamethasone (DECADRON) injection PRN, Starting on Fri01/27/15 at 1700, Until Fri01/27/15 at 1806, Anesthesia Intra-op, Routine Given 01/27/2015 5:00 PM EST 4 mg ePHEDrine Sulfate in sodium chloride 0.9% (PF) 50 mg/10 mL (5 mg/mL) injection Syrg PRN, Starting on Fri01/27/15 at 1657, Until Fri01/27/15 at 1806, Anesthesia Intra-op Given 01/27/2015 5:17 PM EST 10 mg Given 01/27/2015 5:03 PM EST 5 mg Given 01/27/2015 4:57 PM EST 5 mg fentaNYL 50mcg/mL injection PRN, Starting on Fri01/27/15 at 1633, Until Fri01/27/15 at 1806, Pain, Anesthesia Intra-op, Routine Given 01/27/2015 5:12 PM EST 50 mcg Given 01/27/2015 4:49 PM EST 50 mcg Given 01/27/2015 4:33 PM EST 50 mcg glycopyrrolate (ROBINUL) injection PRN, Starting on Fri01/27/15 at 1740, Until Fri01/27/15 at 1806, Anesthesia Intra-op, Routine Given 01/27/2015 5:40 PM EST 0.4 mg lactated ringers infusion CONTINUOUS PRN, Starting on Fri01/27/15 at 1626, Until Fri01/27/15 at 1806, Anesthesia Intra-op New Bag 01/27/2015 4:26 PM EST lidocaine (PF) (XYLOCAINE) 100 mg/5 mL (2 %) injection PRN, Starting on Fri01/27/15 at 1633, Until Fri01/27/15 at 1806, Anesthesia Intra-op, Routine Given 01/27/2015 4:33 PM EST 60 mg neostigmine (PROSTIGMINE) injection PRN, Starting on Fri01/27/15 at 1740, Until Fri01/27/15 at 1806, Anesthesia Intra-op, Routine Given 01/27/2015 5:40 PM EST 3 mg ondansetron (ZOFRAN) injection PRN, Starting on Fri01/27/15 at 1734, Until Fri01/27/15 at 1806, Nausea, Anesthesia Intra-op, Routine Given 01/27/2015 5:34 PM EST 4 mg PHENYLephrine HCl in NS (PF) (DEION-SYNEPHRINE) 0.8 mg/10 mL (80 mcg/mL) injection Syrg PRN, Starting on Fri01/27/15 at 1719, Until Fri01/27/15 at 1806, Anesthesia Intra-op, Routine Given 01/27/2015 5:29 PM EST 160 mcg Given 01/27/2015 5:26 PM EST 80 mcg Given 01/27/2015 5:19 PM EST 160 mcg propofol (DIPRIVAN) 10 mg/mL bolus injection (Anesthesia) PRN, Starting on Fri01/27/15 at 1635, Until Fri01/27/15 at 1807, Anesthesia Intra-op Given 01/27/2015 4:35 PM EST 180 mg propofol (DIPRIVAN) infusion CONTINUOUS PRN, Starting on Fri01/27/15 at 1644, Until Fri01/27/15 at 1806, Anesthesia Intra-op, Routine Rate/Dose Change 01/27/2015 5:18 PM EST 50 mcg/kg/min 29.4 mL/hr New Bag 01/27/2015 4:44 PM EST 75 mcg/kg/min 44.1 mL/hr rocuronium (ZEMURON) injection PRN, Starting on Fri01/27/15 at 1709, Until Fri01/27/15 at 1806, Anesthesia Intra-op, Routine Given 01/27/2015 5:09 PM EST 10 mg vancomycin (VANCOCIN) injection PRN, Starting on Fri01/27/15 at 1732, Until Fri01/27/15 at 1806, Anesthesia Intra-op, Routine Given 01/27/2015 5:32 PM EST 1 g documented in this encounter Care Teams Foundation Coordinator Relationship Specialty Start Date End Date Cmaacho Irwin MD [address] [place] [address] PCP - General 01/27/15 06/30/18 documented as of this encounter
--- OUTSIDE RECORDS SUMMARY | 2024-07-21 19:32 | XMS_ITS | Encounter Summary ---
[place] [address] Care Team Providers Care Director Credit Risk Name Role Phone Camacho Irwin MD Primary Care Provider +1 [phone] Encounter Details Date Type Department Care Team (Late st Contact Info) Description 03/03/2015 Telephone [place] [address] Iraj Hernandez MD [facility] DR [place] [address] Social History Tobacco Use Types Packs/Day Years [...] encounter Miscellaneous Notes * Telephone Encounter - Iraj Hernandez MD - 03/03/2015 3:18 PM EDT ID Note: Spoke with Dr. Harrison on the phone. The patient was admitted earlier this week (Upon my recommendation) due to progressive neutropenia and onset of abdominal pain. He had possible divericulitis on CT scan, but could also have been enterocolitis. He was switched to imipenem from ceftriaxone as this could have been the culprit. He was kept on Keppra at the request of neurosurgery here, which could be the cause of the neutropenia. He was placed on neupogen. His WBC continues to fall and ANC =0now. He is clinically very well, abd pain improved, taking some sips. No complaints. Dr. Carlton going to change the sz med andcontinue as he has. He will call back for further issues that arise or if there is anything warranting transfer. documented in this encounter Plan of Treatment Upcoming Encounters Date Type Department Care Team (Late st Contact Info) Description 09/08/2024 9:40 AM EDT Office Visit Cardiology at [address] [address] Gonzales Torres MD [facility] [place] [address] documented as of this encounter Visit Diagnoses Not on filedocumented in this encounter Care Teams Director Credit Risk Relationship Specialty Start Date End Date Camacho Irwin MD [address] [place] [address] PCP - General 01/27/15 06/30/18 documented as of this encounter
--- OUTSIDE RECORDS SUMMARY | 2024-07-21 19:32 | XMS_ITS | Encounter Summary ---
Author Organization [facility] [place] [address] Care Team Providers Care Arts And Sciences Dean Name Role Phone Camacho Irwin MD Primary Care Provider +1 [phone] Encounter Details Date Type Department Care Team (Late Contact Info) Description 03/22/2015 Orders [place] [address] Nino Villa MD [facility] [place] [address] Social History Tobacco Use Types Packs/Day Years [...] AM EDT Office Visit Cardiology at [address] [address] Gonzales Torres MD [facility] [place] [address] documented as of this encounter Visit Diagnoses Not on filedocumented in this encounter Care Teams Arts And Sciences Dean Relationship Specialty Start Date End Date Camacho Irwin MD [address] [place] [address] PCP - General 01/27/15 06/30/18 documented as of this encounter
--- OUTSIDE RECORDS SUMMARY | 2024-07-21 19:32 | XMS_ITS | Encounter Summary ---
Author Organization formerly [place] [address] Care Team Providers Care Atmospheric Chemist Name Role Phone Camacho Irwin MD Primary Care Provider +1 [phone] Reason for Visit * Reason Comments Follow-up Encounter Details Date Type Department Care Team (Late st Contact Info) Description 03/14/2015 1:00 PM EDT Follow-[place] [address] Nino Villa MD [facility] [place] [address] Brain abscess Discharge Disposition: Home Social History [...] Sign Reading Time Taken Comments Blood Pressure 120/73 03/14/2015 1:10 PM EDT Pulse 76 03/14/2015 1:10 PM EDT Temperature 36.7 ??C (98 ??F) 03/14/2015 1:10 PM EDT Respiratory Rate 16 03/14/2015 1:10 PM EDT Oxygen Saturation - - Inhaled Oxygen Concentration - - Weight 91.6 kg (202 lb) 03/14/2015 1:10 PM EDT Height - - Body Mass Index 25.94 01/27/2015 10:00 PM EST documented in this encounter Progress Notes * Nino Villa MD - 03/14/2015 1:13 PM EDT Infectious Disease Progress Note . 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 Milleri. Source for the abscess was not further identified. Pt was discharged to long-term and then to home. Was readmitted 03/01- to [facility] with acute sigmoid diverticulitis (C. Diff neg) and leukopenia (ANC 130) which resolved with d/c keppra and ceftriaxone. He was changed to meropenem and has continued that therapy by vein TID at hospital, which is close to home. WBC went way up (33K) so neupogen shots were discontinued 03/09. Feeling wiped out. He thinks it might be zonisamide which was started as seizure replacement med at [facility]. No fevers. No headaches. Coordination and left arm strength is about 95% of normal and stable over the last few weeks. No aches or pains. BP has been good. PE: Filed Vitals: 03/14/15 1310 BP: 120/73 Pulse: 76 Temp: 36.7 ??C (98 ??F) Resp: 16 NAD. Ambulatory. Conversant EOMI. PERR. Healthy teeth Cor RRR Lungs clear PICC site RUE: benign appearing Abd: soft, nondistended, nontender NEURO: CN, strength intact. Gait stil favors left leg abit but overall steady. Data: Recent CBC, Cr, LFTs from 03/10 at [facility] reviewed. WBC peaked at 33K on 03/10 but down to 22 yesterday. MRI today: EXAMINATION: MR BRAIN W/WO CONTRAST CLINICAL HISTORY: follow-up brain abscess TECHNIQUE: MRI brain before and after administration of 10 mL of Gadavist intravenously. COMPARISON: MRI brain 01/27/2015 and 01/26/2015. FINDINGS: Right parietal merritt hole is present. Near complete interval resolution of ring enhancing right [...] at the site of drained parenchymal abscess. Impression: Pt's neurologic function and brain imaging are significantly improved but not at baseline. ReviewedMRI with radiology and can't say if still active infection. However, he still appears to have some edema and I am recommending continuing on with 2 more weeks of IV abx -- which would bring us to 8 weeks, a standard course for an undrained (aspirated) brain abscess. His current malaise may be from the recent neupogen associated leukocytosis or could be related to two other recent medications, the zonisamide for sz prophylaxis or the meropenem. He is very active at home and would like to feel 100%, which may not be realistic in the setting of this ongoing therapy. He thinks he can continue 3x a day infusions at [facility] since it is close to his home. His PICC line is functioning well. We don't have great alternatives for therapy. He is PCN allergic and recentlyhad severe leukopenia which could have been related to the ceftriaxone. Vanco and Daptomycin don't penetrate PROJECT PRODUCT MANAGER well. If he can't tolerate alisson going forward, consider oral linezolid or, perhaps, oral moxifloxacin. Recommendations: 1) contiue meropenem through 03/28. 2) return to ID clinic 04/04 with f/u MRI scan planned for that day. 3) I will contact Dr. Irwin about possible alternative antiseizure med, since I am not familiar with zonisamide (a sulfa derivative.) 4) Pt will call if new sx or Orlin Villa MD documented in this encounter Plan of Treatment Upcoming Encounters Date Type Department Care Team (Late st Contact Info) Description 09/08/2024 9:40 AM EDT Office Visit Cardiology at [address] [address] Gonzales Torres MD [facility] [place] [address] documented as of this encounter Results * MRI brain with/WO [...] Visit Diagnoses Diagnosis Brain abscess Intracranial abscess Brain abscess Intracranial abscess documented in this encounter Care Teams Atmospheric Chemist Relationship Specialty Start Date End Date Camacho Irwin MD [address] [place] [address] PCP - General 01/27/15 06/30/18 documented as of this encounter
--- OUTSIDE RECORDS SUMMARY | 2024-07-21 19:32 | XMS_ITS | Encounter Summary ---
[place] [address] Care Team Providers Care Tie Inspector Name Role Phone Camacho Irwin MD Primary Care Provider +1 [phone] Reason for Visit * Reason Comments Follow-up Aftercare, Elevator Operator Service Use Meds Encounter Details Date Type Department Care Team (Late st Contact Info) Description 03/28/2015 1:00 PM EDT Follow-[place] [phone] Nino Villa MD [facility] [place] [address] Brain abscess Discharge Disposition: Home Social History [...] Sign Reading Time Taken Comments Blood Pressure 142/88 03/28/2015 1:06 PM EDT Pulse 80 03/28/2015 1:06 PM EDT Temperature 36.8 ??C (98.2 ??F) 03/28/2015 1:06 PM ED T Respiratory Rate 16 03/28/2015 1:06 PM EDT Oxygen Saturation - - Inhaled Oxygen Concentration - - Weight 91 kg (200 lb 9.9 oz) 03/28/2015 1:06 PM EDT Height - - Body Mass Index 25.76 01/27/2015 10:00 PM EST documented in this encounter Progress Notes * Betzy Nugent RN - 03/29/2015 12:21 PM EDT OPAT Program Infectious Disease Clinic Visit Catheter Removal Date: 03/28/15 [ x ] Catheter removed intact with Reason for removal: [ x ] End of Therapy [ ] Phlebitis [ ] Cellulitis [ ] Catheter-related infection: [ ] Suspected [ ] Documented [ ] Thrombus: [ ] Suspected [ ] Documented [ ] Infiltration [ ] Other Patient Education: [x] Patient instructed to observe site for redness, swelling, discomfort and/or exudate and call Healthcare Provider if any of these signs/symptoms present. Catheter removed by: Betzy Nugent RN * Nino Villa MD - 03/28/2015 1:10 PM EDT Infectious Disease Clinic OPAT: Order / Recommendation for Post Discharge IV Antibiotic Management ID Diagnosis: Brain Abscess Microorganisms being treated: Strep milleri Antibiotic Allergies: Penicillin Antibiotic (one line for each ABx): Ceftriaxone 2 gms IV q12h through 03/01 (D/C DUE TO NEUTROPENIA);meropenem since 03/01 Start date: 01/27/2015 Anticipated stop date: 03/28/2015 S: Walking, energy, and appetite are much improved. Still has slight hitch in left leg. No complaints about left arm function. No fevers. No side effects to meropenem as far as he knows. Off lisonopril due to fluctuations in BP. No nausea and no diarrhea. Still taking zonisamide for seizure prophylaxis. PE: Filed Vitals: 03/28/15 1306 BP: 142/88 Pulse: 80 Temp: 36.8 ??C (98.2 ??F) Resp: 16 NAD EOMI. PERRL. OP. PICC site right arm benign Cor RRR Lungs clear Neuro: CN intact. Strength 5/5 UE's and symmetric. Left quads are symmetric and 5/5. Left knee extensors 4/5 left. Stance, prefers to stand with wide gate but can stand with legs together. Can stand on one foot. Slight hitch in left leg gait. Data: Lab Results Component Value Date WBC 9.04* 03/20/2015 HGB 11.1* 03/20/2015 HCT 33.2* 03/20/2015 MCV 93.5* 01/31/2015 PLATELET 327* 03/20/2015 Lab Results Component Value Date CREATININE 0.8* 03/20/2015 Labs 03/27 at [facility]: Wbc 5.67, hgb 11.1, plt 394, eos 11.4%, esr 72, nl cr and lfts', CRP 2.8 mg/l EXAMINATION: MR BRAIN W/WO CONTRAST 03/28/14 CLINICAL HISTORY: f/u brain abscess TECHNIQUE: Examination [...] the study is stable and generally unremarkable. IMPRESSION IMPRESSION: Satisfactory progress postdrainage of right frontal abscess. Edema has diminished somewhat and no progression of enhancement is seen. Impression: Clinically nearly at baseline. MRI progress over last few weeks and collection may now be sterilized given std duration of rx and sensitive organism. There is a small chance that infection is partially treated and sx will return if abx are stopped. Recommendations: 1) D/c merepenem and picc line 2) stay on zonisamide for now; will need some clarifcation on how long he needs to be on this 3) f/u with dentist this week or next to close loop on possible source 4) f/u anemia and elevated ESR with repeat labs 04/06 5) Return to ID clinic on 04/06. 30' M.MBryant Villa MD documented in this encounter Plan of Treatment Upcoming Encounters Date Type Department Care Team (Late st Contact Info) Description 09/08/2024 9:40 AM EDT Office Visit Cardiology at [address] [place] [phone] Gonzales Torres MD [facility] [place] [address] documented as of this encounter Results * High Sensitivity CRP (04/06/2015 9:33 AM EDT) C-Reactive Protein High Sensitivity 0.6 mg/L [facility] Comment: Interpretations: 1) For accurate cardiac risk [...] the test package insert) References: 1. Shanon OLSON et. al. ??AHA/CDC Scientific Statement: Markers of Inflammation and Cardiovascular Disease. ??Circulation 2003; 107:499-511 2. Ridker PM. ??Clinical applications of C-reactive protein for cardiovascular disease detection and prevention. ??Circulation 2003; 107:363-369 Blood specimen (specimen) 04/06/2015 9:33 AM EDT 04/06/2015 9:41 AM EDT Narrative Resulting Agency Comment Spec In Lab Nino Villa MD CHEMISTRY ORDER PARK [facility] * (ABNORMAL) Sedimentation rate (04/06/2015 9:33 AM EDT) Sedimentation Rate Automated 20(H) 0 - 15 mm/hr [facility] Blood specimen (specimen) 04/06/2015 9:33 AM EDT 04/06/2015 9:41 AM EDT Narrative Resulting Agency Comment Spec In Lab Nino Villa MD [facility]ATOLOGY [facility] documented in this encounter Visit Diagnoses Diagnosis Brain abscess Intracranial abscess documented in this encounter Care Teams Tie Inspector Relationship Specialty Start Date End Date Camacho Irwin MD [address] [facility] [place] [address] PCP - General 01/27/15 06/30/18 documented as of this encounter
--- OUTSIDE RECORDS SUMMARY | 2024-07-21 19:32 | XMS_ITS | Encounter Summary ---
Author Organization Formerly [facility] [place] [address] Care Team Providers Care Neurosurgical Nurse Practitioner Name Role Phone Camacho Irwin MD Primary Care Provider [phone] [phone] Encounter Details Date Type Department Care Team (Late Contact Info) Description 02/21/2015 External [place] [address] Sharad Lazaro MD [facility] [place] [address] Social History Tobacco Use Types Packs/Day Years [...] 9:40 AM EDT Office Visit Cardiology at [address] [phone] Gonzales Torres MD [facility] [place] [address] documented as of this encounter Procedures Procedure Name Priority Date/Time Associated Diagnosis Comments EXTERNAL LAB INFECTIOUS DISEASE RESULTS PANEL Routine 02/20/2015 EXTERNAL LAB INFECTIOUS DISEASE RESULTS PANEL Routine 02/03/2015 documented in this encounter Results * (ABNORMAL) Infectious Disease External Results (02/20/2015) White Blood Cell 4.93(Exte rnal Lab) Hemoglobin 13.3(EXTE RNAL/ABN) 13.5 - 17.5 Hematocrit 38.9(EXTE RNAL/ABN) 41.0 - 53.0 Platelet 155(Exter nal Lab) Sedimentation Rate Automated 25(BREWER HELPER AL/ABN) C-Reactive Protein High Sensitivity 20.4(EXTE RNAL/ABN) Creatinine 0.8(Exter nal Lab) Potassium 4.4(Exter nal Lab) 3.4 - 5.3 02/20/2015 Historical Provider POINT OF CARE RAMONITA T ORDERABLES * (ABNORMAL) Infectious Disease External Results (02/03/2015) White Blood Cell 14.77(EXT ERNAL/ABN ) Hemoglobin 14.6(Exte rnal Lab) 13.5 - 17.5 Hematocrit 42.8(Exte rnal Lab) 41.0 - 53.0 Platelet 298(Exter nal Lab) Sedimentation Rate Automated 18(Spice Blender al Lab) Creatinine 0.9(Exter nal Lab) Alkaline Phosphatase 60(Spice Blender al Lab) 02/03/2015 Historical Provider POINT OF CARE RAMONITA T ORDERABLES documented in this encounter Visit Diagnoses Not on filedocumented in this encounter Care Teams Neurosurgical Nurse Practitioner Relationship Specialty Start Date End Date Camacho Irwin MD [address] [place] [address] PCP - General 01/27/15 06/30/18 documented as of this encounter
--- OUTSIDE RECORDS SUMMARY | 2024-07-21 19:32 | XMS_ITS | Encounter Summary ---
Author Organization [facility] [address] Care Team Providers Care Senior Online Marketing Manager Name Role Phone Camacho Irwin MD Primary Care Provider +1 -[phone] Encounter Details Date Type Department Care Team (Late Contact Info) Description 03/09/2015 Orders [place] [address] Iraj Hernandez MD [facility] [place] [address] Social History Tobacco Use Types Packs/Day Years [...] 9:40 AM EDT Office Visit Cardiology at [address] [phone] Gonzales Torres MD [facility] [address] documented as of this encounter Visit Diagnoses Not on filedocumented in this encounter Care Teams Senior Online Marketing Manager Relationship Specialty Start Date End Date Camacho Irwin MD [address] [place] [address] PCP - General 01/27/15 06/30/18 documented as of this encounter
--- OUTSIDE RECORDS SUMMARY | 2024-07-21 19:32 | XMS_ITS | Encounter Summary ---
Author Organization [facility] [place] [address] Care Team Providers Care Speech Communication Instructor Name Role Phone Camacho Irwin MD Primary Care Provider +1 -[phone] Encounter Details Date Type Department Care Team (Late st Contact Info) Description 02/01/2015 Orders [place] [address] Jose Small MD [facility] [place] [address] Social History Tobacco Use Types Packs/Day Years [...] AM EDT Office Visit Cardiology at [address] [place] [address] Gonzales Torres MD [facility] [place] [address] documented as of this encounter Visit Diagnoses Not on filedocumented in this encounter Care Teams Speech Communication Instructor Relationship Specialty Start Date End Date Camacho Irwin MD [address] [place] [address] PCP - General 01/27/15 06/30/18 documented as of this encounter
--- OUTSIDE RECORDS SUMMARY | 2024-07-21 19:32 | XMS_ITS | Encounter Summary ---
Author Organization [facility] [place] [address] Care Team Providers Care Speech And Drama Teacher Name Role Phone Camacho Irwin MD Primary Care Provider +1 -[phone] Encounter Details Date Type Department Care Team (Late Contact Info) Description 03/10/2015 Orders [place] [address] Iraj Hernandez MD [facility] [place] [address] Social History Tobacco Use Types Packs/Day Years [...] 9:40 AM EDT Office Visit Cardiology at [address] [address] Gonzales Torres MD [facility] [place] [address] documented as of this encounter Visit Diagnoses Not on filedocumented in this encounter Care Teams Speech And Drama Teacher Relationship Specialty Start Date End Date Camacho Irwin MD [address] [place] [address] PCP - General 01/27/15 06/30/18 documented as of this encounter
--- OUTSIDE RECORDS SUMMARY | 2024-07-21 19:32 | XMS_ITS | Encounter Summary ---
Author Organization [facility] [place] [address] Care Team Providers Care Motorcycle Sales Associate Name Role Phone Camacho Irwin MD Primary Care Provider +1 -[phone] Encounter Details Date Type Department Care Team (Late Contact Info) Description 03/09/2015 Orders [place] [address] Iraj Hernandez MD [facility] [place] [address] Brain abscess Social History Tobacco Use Types Packs/Day Years [...] 9:40 AM EDT Office Visit Cardiology at [address] [place] [address] Gonzales Torres MD [facility] [place] [address] documented as of this encounter Results * [...] reviewed by the attending Iraj Hernandez MD IMG MRI ORDERABLE S documented in this encounter Visit Diagnoses Diagnosis 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
--- OUTSIDE RECORDS SUMMARY | 2024-07-21 19:32 | XMS_ITS | Encounter Summary ---
[place] [address] Care Team Providers Care Typing Element Machine Operator Name Role Phone Camacho Irwin MD Primary Care Provider +1 -[phone] Reason for Visit * Reason Onset Date Comments Other 02/02/2015 Encounter Details Date Type Department Care Team (Late st Contact Info) Description 02/02/2015 [place] [phone] Mando Dixon MD [facility] [address] Other Social History Tobacco Use Types Packs/Day Years [...] encounter Miscellaneous Notes * Telephone Encounter - Reina Singh - 02/02/2015 4:49 PM EST [facility] Patient with CVA 69 yo M w/HTN, HLD, CAD admitted yesterday to ER w/left leg weakness and clumsiness. CT-Head shows right frontal decreased attenuation posteriorly. CV Duplex small plaque in carotids, vertebral OK, TTE unremarkable. Tonight he is extending - worsening weakness in left arm and hand, clumsiness with left hand. He is on Aspirin 162mg, Plavix added . Sinus rhythm. Prior to admission was on Aspirin 81mg qd I was asked if heparin drip should be started, and I said no. I asked them to give a plavix load [id number], then continue with 75mg. I asked if patient wanted to be transferred, they said no. Message taken by Dr. Dixon while clinical practitioner on 01/26/15 documented in this encounter Plan of Treatment Upcoming Encounters Date Type Department Care Team (Late st Contact Info) Description 09/08/2024 9:40 AM EDT Office Visit Cardiology at [address] [address] Gonzales Torres MD [facility] [place] [address] documented as of this encounter Visit Diagnoses Not on filedocumented in this encounter Care Teams Typing Element Machine Operator Relationship Specialty Start Date End Date Camacho Irwin MD [address] [place] [address] PCP - General 01/27/15 06/30/18 documented as of this encounter
--- OUTSIDE RECORDS SUMMARY | 2024-07-21 19:32 | XMS_ITS | Encounter Summary ---
Author Organization [facility] [place] [address] Care Team Providers Care Electro Mechanical Engineer Name Role Phone Camacho Irwin MD Primary Care Provider +1 -[phone] Encounter Details Date Type Department Care Team (Late Contact Info) Description 02/28/2015 External Results [place] [address] Sharad Lazaro MD [facility] [place] [address] Social History Tobacco Use Types Packs/Day Years [...] AM EDT Office Visit Cardiology at [address] [phone] Gonzales Torres MD [facility] [place] [address] documented as of this encounter Procedures Procedure Name Priority Date/Time Associated Diagnosis Comments EXTERNAL LAB INFECTIOUS DISEASE RESULTS PANEL Routine 02/27/2015 documented in this encounter Results * (ABNORMAL) Infectious Disease External Results (02/27/2015) White Blood Cell 2.24(EXTE RNAL/ABN) Hemoglobin 13.1(EXTE RNAL/ABN) 13.5 - 17.5 Hematocrit 37.8(EXTE RNAL/ABN) 41.0 - 53.0 Platelet 184(Exter nal Lab) Sedimentation Rate Automated 33(BUSINESS PROGRAMMER AL/ABN) C-Reactive Protein High Sensitivity 23.4(EXTE RNAL/ABN) Creatinine 0.8(Exter nal Lab) Alkaline Phosphatase 108(Exter nal Lab) Potassium 4.0(Exter nal Lab) 3.4 - 5.3 Aspartate Aminotransferase 27(Roto Rooter Operator al Lab) 14 - 40 Alanine Aminotransferase 66(Roto Rooter Operator al Lab) 10 - 40 02/27/2015 Historical Provider POINT OF CARE RAMONITA T ORDERABLES documented in this encounter Visit Diagnoses Not on filedocumented in this encounter Care Teams Electro Mechanical Engineer Relationship Specialty Start Date End Date Camacho Irwin MD [address] [place] [address] PCP - General 01/27/15 06/30/18 documented as of this encounter
--- OUTSIDE RECORDS SUMMARY | 2024-07-21 19:32 | XMS_ITS | Encounter Summary ---
[place] [address] Care Team Providers Care [employer] Name Role Phone Camacho Irwin MD Primary Care Provider [phone] Encounter Details Date Type Department Care Team (Late st Contact Info) Description 02/14/2015 10:45 AM EDT [place] [id number] Latisha Parra, RN Removal of laura Discharge Disposition: Home Social History Tobacco Use [...] as of this encounter Progress Notes * Latisha Parra RN - 02/14/2015 9:53 AM EDT History of Presentation: Camacho Flores is a 69 y/o right-handed male seen for evaluation of a brain mass. The patient developed left lower extremity incoordination three days prior to admission. He was seen at [facility] where a head CT was performed and interpreted as concerning for an ischemic infarct. He received 300mg of Plavix at that time in addition to his usual ASA. He subsequently developed worsening weakness in his upper and lower extremity, incoordination, as well as left hand numbness. 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 A CT C/A/P was ordered as part of a w/u. He was transferred for further treatment and brain bx due to concerns for intracranial abscess upon interpretation of imaging here. Operations/Major Procedures: 01/28/2015: Stereotactic brain biopsy, Dr. Small Mr. Flores is alert, oriented, and appropriate. His ambulation is slow but steady with a cane. He had been discharged to [facility] but everyone was getting sick there so he was discharged to home. He felt like he was going to have diarrhea so went into the bathroom and passed out, falling off the toilet and banging the left side of his face and breaking his nose. He was sent to [facility] where a CT scan was done which was negative. He went home using a walker but progressed to the cane a couple of days ago. The coordination has improved greatly in the left extremities. He denies weakness or numbness. His PICC site looks good. He goes to [facility] for his IV antibiotic treatment twice a day. Mr. Flores's cranial incision is well healed with skin edges well approximated without erythema, edema, drainage, or tenderness. All laura were removed. Mr. Flores knows to call with questions or concerns. He has f/u with ID later this morning. documented in this encounter Plan of Treatment Upcoming Encounters Date Type Department Care Team (Late st Contact Info) Description 09/08/2024 9:40 AM EDT Office Visit Cardiology at [address] [place] [id number] Gonzales Torres MD [facility] [place] [address] documented as of this encounter Visit Diagnoses Diagnosis Removal of laura Encounter for removal of sutures documented in this encounter Care Teams [employer] Relationship Specialty Start Date End Date Camacho Irwin MD [address] [place] [address] PCP - General 01/27/15 06/30/18 documented as of this encounter
--- OUTSIDE RECORDS SUMMARY | 2024-07-21 19:32 | XMS_ITS | Encounter Summary ---
[place] [address] Care Team Providers Care Dials Inspector Name Role Phone Mirna Orosco MD Primary Care Provider [phone] Reason for Referral * Consultation (Routine) - Closed Specialty Diagnoses / Procedures Referred By Contac t Referred To Contact Infectious Diseases Diagnoses Brain abscess Jose Santiago MD [facility] [place] [place] [address] Sharad Lazaro MD [facility] [place] [address] Referral ID Status Reason Start Date Expiration Date V isits Requested Visits Authorized [id number] Closed Assume Subset of Care 01/31/2015 01/31/2016 3 3 Reason for Visit * Reason Comments Extremity Weakness Encounter Details Date Type Department Care Team (Latest Contact Info) Description 01/27/2015 3:35 PM EST - 01/31/2015 1:07 PM EST Hospital Encounter [address] [place] [address] Jose Santiago MD [facility] [place] [address] [place] [address] Brain abscess Discharge Disposition: Nursing Home Facility Social History Tobacco Use Types Packs/Day Years [...] Sign Reading Time Taken Comments Blood Pressure 148/74 01/31/2015 10:00 AM EST Pulse 64 01/31/2015 10:00 AM EST Temperature 36.8 ??C (98.2 ??F) 01/31/2015 10:[address] Respiratory Rate 18 01/31/2015 10:00 AM EST Oxygen Saturation 96% 01/31/2015 10:00 AM EST Inhaled Oxygen Concentration - - Weight 98 kg (216 lb) 01/27/2015 3:45 PM EST Height 188 cm (6' 2) 01/27/2015 10:00 PM EST Body Mass Index 27.73 01/27/2015 3:45 PM EST documented in this encounter Discharge Instructions * Patient Instructions* Sharlene Lorenzana APRN - 01/31/2015 10:51 AM EST Primary Reason for Hospitalization: Brain abscess Condition at Discharge: Stable Special Physician Instructions: Discharge Instructions ACTIVITY: - You may shower/bathe. Have someone near in case you need help. - Increase your activity as tolerated - You may tire easily, so frequent rest periods may be necessary - No heavy lifting for first two weeks DIET: - Resume your usual diet. Fresh fruit, vegetables and fiber containing foods are recommended. - Stool softeners, or mild laxatives may be used as needed. COMFORT: - It is normal to have some soreness in/around your incision. - Take your pain medication as ordered/needed - Taper use of pain medication as pain lessens. CALL YOUR DOCTOR FOR: - Fever over 101 F - Redness, swelling, increasing pain or drainage from your incision. - Worsening headaches - Unsteadiness when walking/new weakness - Slurred speech - Visual changes - Drowsiness/confusion - Nausea/vomiting - Convulsions/seizures - Pain not relieved with mild medication Call 911 or your local EMS if you have sudden weakness or numbness in your face or one of your limbs, slurred speech, loss of vision, or difficulty speaking. It is important to seek medical attentionas soon as possible, as these symptoms could be related to a new stroke/hemorrhage. Prescriptions: [X] Anticonvulsants (Anti-seizure medication): Keppra You are being discharged home on anticonvulsants (Keppra). Take the medication as directed. [X] Steroids: Decadron You are being discharged home on Decadron (dexamethasone). Decadron is used to reduce tissue swelling in the brain. It should be taken two times a day at 8 amand around 2 pm. This medication will be gradually reduced every three days over the next 1 to 2 weeks. If you experience any symptoms during the tapering schedule, please call the nurse practitioner at [phone] or your Neurosurgeon. [X] Pepcid You are being sent home on a medication to protect your stomach while you are taking steroids. Onceyou have finished taking the steroids, you may stop this medication. At your follow-up appointment with Neurosurgery, ask how long you need to continue taking this medication. If you have difficulty affording this medication please contact us for prescription assistance. Anti-coagulation follow up: No aspirin, heparin, NSAIDs or anticoagulants Activity level: As tolerated Diet: Regular Driving: No driving until your follow-up appointment with Neurosurgery Shower/Bath: [place] Wound Care: Baring out 2 weeks after surgery - on February 11, 2015. These may be removed at rehab. Follow up Appointments: 1) Please follow up with Infectious Diseases. Your appointment is listed below. 2) Please follow up with Dr. Santiago in the outpatient Neurosurgery clinic in 4-6 weeks. Please call his office at the number below if you do not receive an appointment card in the mail within 2-3 weeks. 3) Please follow up with your dentist in 2-3 weeks for evaluate for any dental abscess. IMPORTANT PHONE NUMBERS: Outpatient Nurse (Latisha Parra) Inpatient Nurses Neurosurgical Resident Personnel Research Psychologist (after 5pm or before 8am) Neurosurgery offices (between 8am-5pm): Dr. Santiago Dr. Ceron (pediatric neurosurgery) Dr. Tello: Pediatric Patients , Adult Patients Dr. Forrester Dr. Delgado Dr. Galvez Dr. Interiano Juaquin Madera, Physician Machine Tester Sharlene Lorenzana, Nurse Practitioner Juaquin Short, Physician Machine Tester Kisha Teixeira, Nurse Practitioner CC: MIRNA OROSCO MD documented in this encounter Medications at Time of Discharge Medication Sig Dispensed Refills Start Date End Date acetaminophen (TYLENOL) 325 mg Tablet Take 2 tablets by mouth every 4 hours as needed for Pain (mild pain). 30 tablet 1 01/31/2015 02/14/2015 cefTRIAXone (ROCEPHIN) 2 gram/50 mL Piggyback Inject 50 mLs into the vein every 12 hours. 1 each 01/31/2015 03/14/2015 dexamethasone (DECADRON) 1 mg Tablet Take 4 tablets by mouth See Admin Instructions. Take 4 tablets by mouth twice daily for 3 days, then take 2 tabs twice daily for 3 days, then take 1 tab twice daily for 3 days, then take 1 tab daily for 3 days, and then stop. 01/31/2015 03/14/2015 famotidine (PEPCID) 20 mg Tablet Take 1 tablet by mouth 2 times daily. 30 tablet 12 01/31/2015 03/14/2015 levETIRAcetam (KEPPRA) 500 mg Tablet Take 1 tablet by mouth 2 times daily. 60 tablet 12 01/31/2015 03/14/2015 lisinopril (PRINIVIL;ZESTRIL) 10 mg Tablet Take 10 mg by mouth daily. 03/28/2015 atorvastatin (LIPITOR) 10 mg Tablet Take 10 mg by mouth daily. 05/21/2023 documented as of this encounter Progress Notes * Faby Singh RN - 01/31/2015 12:18 PM EST Patient Name: Mirna Milton Patient Age: 69 y.o. Birthdate: 1945 Admit date: 01/27/2015 Attending Physician: Jose Santiago MD Mr. Mirna Milton, a 69 year old male admitted 01/27/2015 with left-sided weakness and incoordination found to have R frontal brain abscess on MRI, being discharged this afternoon to [facility] with transportation provided by his . Report called to MORIAH Arana - all questionsanswered at this time; number provided in lieu of additional concerns. At time of discharge Mr. Milton is A&Ox4, AVSS, he has tolerated IV antibiotics into a single lumen PICC without incident. PICC line to remain in for further use. He continues with L-sided weakness, though denies any numbness or tingling. Skin is intact with exception of crani incision from stereotatic brain biopsy 01/28. No redness, drainage, or tenderness at [place]-hole incisions. Mr. Milton has demonstrated appropriate use of Front-wheel walker and is cognizant of his need for assistance when ambulating/ transferring out of bed. His neurological status, vital signs, and blood sugar have been closely monitored throughout his admission and are stable for discharge as per [facility] p payam and criteria. Discharge summary, medication list, and insurance information all sent with patient in packet, reviewed with patient and to pass information along once arriving at rehab. Pt wheeled to [facility] with all personal belongings and assisted into vehicle safely. * Jacquie Solis-Dov Blake RN - 01/31/2015 11:16 AM EST Patient Name: Mirna Milton Patient Age: 69 y.o. Birthdate: 1945 Admit date: 01/27/2015 Attending Physician: Jose Santiago MD Office of Care Management Clinical Heat Treat Inspector (CRC) Jacquie Solis RN, BSN -CRC NeuroSurgery Voice Mail [phone] Pager [phone] DISCHARGE NOTE: ROOM: 503-A ATTENDING: Jose Santiago MD Reason for Hospitalization: Brain abscess, biopsy and IV abx Patient is medically ready for d/c. Patient has been offered a bed at [facility]. Family and patient are aware and agree with the plans. Patient will be transported via private transportation. P: Plan for transfer to SNF Level rehab bed. Will continue to be available should additional needs arise. * Thuy Aguilar - 01/31/2015 11:01 AM EST Office of Care Management/Fondant Cooker Patient Name: Mirna Milton : 1945 Patient has been offered a SNF bed at [facility]. family arranged for a 1:00 transport. No MD to MD report necessary. Please call Nursing Report to [phone] ask for Derrek Daniel RN. Info to accompany patient: Narcotic Prescriptions Copies of Medication Administration Records and IV sheets for past 10 days. Plan: Fondant Cooker will be available to the patient and CRC for further assistance. Patient will be discharged to: [place] [address] Thuy Aguilar Fondant Cooker * Evelio Correa MD - 01/31/2015 6:12 AM EST Neurosurgery - Inpatient Progress Note ID: Mirna Milton, 69 y.o. male w/ brain abscess, s/p sterotactic bx 01/27 POD 4 Interval Hx: -VAUGHN -Neurologically stable Objective: Medications: Scheduled Meds: ??? vancomycin 1 g Intravenous Q12H ??? Vancomycin Level - MAR Order Reminder NOT APPLICABLE Once ??? lisinopril 10 mg Oral Daily ??? atorvastatin 10 mg Oral QPM ??? docusate sodium 100 mg Oral BID ??? dexamethasone 4 mg Oral BID ??? MEROpenem 2 g Intravenous Q8H ??? famotidine 20 mg Oral Q12H Or ??? famotidine 20 mg Intravenous Q12H ??? levETIRAcetam 500 mg Oral BID ??? insulin aspart 1-4 Units Subcutaneous TID AC Continuous Infusions: PRN Meds:acetaminophen OR [DISCONTINUED] acetaminophen, oxyCODONE OR oxyCODONE, labetalol, hydrALAZINE, polyethylene glycol, bisacodyl, bisacodyl, ondansetron OR ondansetron, metoclopramide, dextrose 50% OR glucagon (human recombinant), [DISCONTINUED] vancomycin AND Vancomycin, trough AND Vancomycin Level - MAR Order Reminder Vitals: Temp: [36.4 ??C (97.5 ??F)-36.8 ??C (98.2 ??F)] Heart Rate: [57-63] Resp: [18] BP: (141-163)/(59-94) SpO2: [98 %-100 %] I/O: Intake/Output Summary (Last 24 hours) at 01/31/15 0612 Last data filed at 01/30/15 1200 Gross per 24 hour Intake 600 ml Output 250 ml Net 350 ml Labs: Recent Labs 01/31/15 0602 01/30/15 1008 01/29/15 0534 WBC 8.7 9.7 12.6* HGB 12.8* 13.2* 12.6* PLATELET 237 244 237 Recent Labs 01/30/15 1000 01/29/15 0534 NA 139 138 K 4.1 4.1 CL 101 102 CO2 27 24 BUN 24* 21* CREATININE 0.72* 0.77* No results for input(s): PT, INR in the last 72 hours. Physical Exam: -NAD -AAOx3 -Speech fluent and appropriate. -PERRL. EOMI. -No facial asymmetry -Tongue midline -Motor: RUE:5/5 biceps, 5/5 triceps, 2/5 deltoids, 2/5 trap, 5/5 heavy media operator LUE:5/5 RLE: 5/5 LLE: 5/5 -Sensation intact to LT x 4 Cx: Strep Milleri Assessment/Plan:: 69 y.o. male s/p stereotactic bx of intracranial abscess, positive for strep milleri. Neurologically stable. - Close neurological observation, q4 checks - Vanc, meropenem - Dex for cerebral edema - Keppra for sz ppx - SBP <160 - Hold anticoagulation - GI PPx - Dispo NEUROLOGIC: brain compression GI: malnutrition (protein/calorie restriction) x cerebral edema post-operative ileus comatose delirium FLUIDS: hyponatremia encephalopathy hypernatremia alcohol withdrawal hyperkalemia seizures hypokalemia hypovolemia CARDIOVASCULAR: atrial fibrillation atrial flutter ENDOCRINE: diabetes mellitus hypertension hyperglycemia hypotension hypothyroid heart failure shock RENAL: acute renal failure venous thrombosis chronic renal failure RESPIRATORY: acute respiratory failure HEMATOLOGY: anemia atelectasis neutropenia pleural effusion thrombocytopenia pneumonia coagulopathy pneumothorax DIC pulmonary embolism INFECTION: bacteremia UTI OTHER: morbid obesity (BMI >40) SIRS underweight (BMI <19) sepsis wound care * Sharad Lazaro MD - 01/30/2015 6:22 PM EST INFECTIOUS DISEASE FELLOW INPATIENT F/U NOTE Active ID issues: Brain abscess with strep milleri Subjective/24 hr Events: Remains afebrile No significant events overnight Pertinent Medications: Iv vancomycin and meropenem Physical Exam (24 hrs): Temp: [36.4 ??C (97.5 ??F)-36.8 ??C (98.2 ??F)] Heart Rate: [56-68] BP: (152-163)/(59-91) Resp: [18-20] SpO2: [95 %-100 %] Physical Exam Gen: Not in distress HEENT: PERRLA. Pulm: CTAB. Nl effort. Cardio: RRR, no M/G/R. GI: Abd S/ND/NT w/o rebound or guarding. Neuro: left sided hemiparesis Ext: b/l LE no edema Labs Lab Results Component Value Date WBC 9.7 01/30/2015 HGB 13.2* 01/30/2015 HCT 38.1* 01/30/2015 MCV 93.8* 01/30/2015 PLATELET 244 01/30/2015 Lab Results Component Value Date BUN 24* 01/30/2015 CREATININE 0.72* 01/30/2015 Micro Brain abscess vs tumor cx:01/27/15 Streptococcus milleri group YOLANDE mcg/mL YOLANDE Interp Penicillin(1) 0.032 S Imaging: No new imaging Impression: Mirna Milton is a 69 y.o. male with htn,hld,cad p/w left sided weakness to OSH Ct imaging suggestive of ischemic infract and started on plavix+aspirin weakness worsened which prompted MRI revealingrigh frontal lesion suspicious for metastasis so was transferred to [facility] for definitive management.At [facility] neurosurgery eval s/p OR with stereotactic biopsy of brain on 01/27,cultures yielded Strep milleri (s) pen YOLANDE 0.032.Mr Milton had adverse drug reaction to penicillins in the past but review of literature suggests that cross reactivity with cephalosporins is nearly 1% so it is reasonable to start Iv ceftriaxone 2 gm every 12 hrs for at least 6 weeks and f/u imaging at 4 weeks to assess for re solution Recommendation: Stop iv vancomycin and meropenem Start IV ceftriaxone 2 gm every 12 hrs for at least 6 weeks(start date 01/27/15) and further therapydepends on clinical improvement and imaging studies Monitor CBC<CMP,CRP,ESR weekly Repeat imaging of brain at 4 weeks ID clinic f/u in 2 weeks from discharge Will inform OPAT team about current plan of care x Recommendations discussed with treating team, Consult service will continue to follow patient. Recommendations are above, please page if further consultation required. Case discussed with ID attending Dr.Parsonnet Gaudencio Mata MD Infectious Disease fellow Pager [phone] ID Attending I interviewed and examined the patient with Dr. Mata. I have reviewed Dr. Mata's note from today and I agree with the details as written. My physical examination confirms his findings. Of note today: Mr. Milton has continued left-sided weakness but otherwise feels much better. Culturegrowing S. milleri. Dr. Mata's assessment and plan were formulated after discussion with me at the time of the visit and I agree with them as documented. We suggest treatment with high-dose ceftriaxone (2 grams every 12 hours). Mr. Milton gives a very remote history of penicillin allergy. The likelihood of a serious allergic reaction to ceftriaxone is miniscule (less than 1%), in light of the remoteness of the allergy, the age of the patient, the fact that he is on steroids, and the fact that ceftriaxone has very different side chains from penicillin. Ceftriaxone is clearly the best drug in this situation. Will follow and advise further. The duration of therapy for brain abscess is often 2-3 months. I spent a total of 30 minutes of floor time with this patient, 20 minutes of which were spent in coordination of care with Surgery and in counseling the patient about the nature of his infection.. * TurnerFlavio fountainn - 01/30/2015 1:21 PM EST Occupational Therapy Treatment Note #3 Patient profile: Mirna Milton is a 69 y.o. male patient of Jose Degroot MD, admitted on 01/27/2015 from OSH for evaluation of brain mass. Pt s/p stereotactic biopsy. Code Status: Full Code Precautions: RUE PICC, fall, L side weakness, L AFO Subjective: I just need to loosen it up. placing LUE overhead in PROM after repeated education ofpotential to injure L shoulder over 90 degrees. Objective: Pt seen this a.m for strength/ROM and therex-functional. Cognitive Status/Behavior: alert, oriented to person, place, and time Impulsive at times, impaired attention to activity and ? Problem solving Range of motion, strength, coordination: ?? LUE full strong grasp, full range of elbow flexion/extension though incoordinated. Unable to lift LUE against gravity past 30 degrees, able to demonstrate self range of motion exercises using RUE as assist. ?? Spent additional time in education regarding LUE shoulder precautions and positioning. (Shoulder precautions: No shoulder flexion beyond 90 degrees, position shoulder in external rotation when at rest in bed (inside elbow crease up, elbow extended) ?? Educated in self-ROM below 90 degrees flexion from supine position and forward flexion/rocking technique when sitting upright. Activities of Daily Living: Upper and lower body dressing and bathing: ?? Max assist to don sock and shoe/AFO on LLE. Difficulty managing safely with one handed techniques 2' to impulsive movement ?? Mod A to don robe and cues to dress LUE first Toileting: Commode Transfer: one assist with L knee block/protection Functional Mobility: Supine to sit: min A Sit to stand: cg A and FWW Transfers: Transfer to R side from bed >chair with cgA and precautionary block at L knee which was not assisted. Ambulation: Ambulated 100' with min-mod A of one and chair follow, max cues for safety, MARCO/LLE placement and pacing. Tends to drift to L side Stand to sit: contact guard-min A with cues for technique Did not work on ambulation as shoe was not present for L AFO. Should be present later today when PTplans to work on mobility. Pain: None Education: patient educated on Role of occupational therapy/rehabilitation, Transfers, Assistive device/technique, ADL, Exercise, Positioning, Safety, Functional Mobility, Activity pacing/Energy conservation, Balance and Recommendations and verbalizes and demonstrates understanding. Patient status, treatment, and mobility recommendations discussed with nursing. Assessment: Pt presents with continued L sided weakness which impairs his ability to safely and independently perform ADL's. He is not safe to transfer/mobilize alone 2' weakness and impulsiveness. He is agreeable to rehab prior to d/c home to optimize safety and independence. Pt would benefit from ongoing OT services to maximize functional independence. Recommendations: Discharge Recommendations: would benefit from structured rehab to maximize functional capabilities Goals: To be achieved by 02/04/15: 1. Pt will be supervision LE ADLs using one handed techniques. 2. Pt will be contact guard sit to stand functional transfers from bed, cc, toilet. 3. Pt will be set up for ADLs. 4. Pt will be modified independent self range of motion exercises LUE. 5. Pt will be close supervision with functional mobility with walker in the room for ADLs. 6. Pt will stand for 30 seconds with close supervision to enhance ADLs, unilateral UE support. Plan: Pt to be seen 3-5 x per week for therapy including Transfers, Assistive device/technique, ADL, Positioning, Safety, Functional Mobility, Activity pacing/Energy conservation, Balance, Recommendations and Discharge planning Eval Date: 01/30/2015 Total time spent with patient: 50 minutes. Total timed interventions: 25 minutes functional there ex Pager: [phone] KAITLYN Barron 01/30/2015 Occupational Therapy Rehabilitation Department * Yenifer Thakur, PT - 01/30/2015 11:01 AM EST Physical Therapy Treatment Note Visit #: 3 Patient Dx: Mirna Milton is a 69 y.o. male patient of Jose Degroot MD, admitted on 01/27/2015 from OSH for evaluation of brain mass. Pt s/p stereotactic biopsy determining that this was an abscess Social History: Patient lives with his . Pt is retired from [employer]. 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 2 steps in, no railing. Regular height toilet with grabbar, tub/shower. Hardwood floors throughout. DME: shower chair Baseline ADL/Mobility: Independent with ADL???s and IADL???s Precautions: left sided paresis, left foot drop; fall risk. Interval History: Stable for DC but not yet functionally ready for DC to home S: Yes, a few days in rehab would be good and then I can go home. My can be with me at all times O: Patient seen this afternoon on for 35 mins for functional mobility. Pt demonstrated the following: Vitals: stable, can come off monitor Cognitve: A O X 3, decreased safety insight and impulsivity evident. OT plans further assess cognition Vision: Appears intact, glasses Sensation: States that his sensation is intact, but observed pt repeatedly migrating toward L side of walker and unable to consistently place LLE even w/ AFO, L foot hit back foot of walker several times Need to further assess if this is a function of strength w/ incoordination vs, decreased proprioception ROM/Strength: ROM WFL, Strength LLE: hip flexion 3/5, quad 4/5, holds to resistance for hamstrings, df 1/5, 0/5 EHL, 1/5 pf = foot drop LUE w/o antigravity strength at the shoulder, but w/ 3/5 at elbow and 4/ 5 hand/wrist Balance: impaired. Sitting-Able to sit at EO recliner to wilmar socks and L AFO Standing needs support of walker or R hand hold at this time Gait-needs FWW, gait belt and close CGA 1-2 r/t gait inconsistency/ataxia Mobility: Flat Bed-sit>supine in on pt's R w/ pt crossing R foot under L and then used momentum to move tosupine Supine>sit to R side of bed w/ pt pulling himself holding onto OTs hand Transfers-sit><stand w/ cues for technique and to protect L shoulder. Pt uses R hand to lift L hand on and off walker after he was cued to self assist L arm when sitting down as he Gait-x 80ft x 1, x 40 ft x 1 w/ FWW, L AFO, gait belt and close CGA 2 Pattern- inconsistent placement of L foot, cues to try to control knee to prevent recurvatum Pt also needed repeated cues to stay within and in the middle of the walker observing repeated migration to L side of walker w/ L foot hitting back leg of walker Pain: no report of pain. Education: Patient education on safety, ongoing need for Rehab prior to returning home A: Pt conts to present w/ LUE proximal weakness and LLE distal weakness, impaired balance and whichis markedly affecting his safety in mobility and gait. He is at high risk to fall and needs reinforcement that he is not safe to mobilize w/o assistance. He agrees that he will benefit from ongoing therapeutic interventions to achieve the below therapy goals- Physical Therapy Goals: by 02/07/15 1. Demonstrate knowledge of safety limitations and precautions and will appropriately request assistance for functional activities and to mobilize. 2. Demonstrate understanding and carry over of appropriate exercises. 3. Perform bed mobility with min assist 4. Demonstrate midline sitting balance with indep 5. Perform sit <> stand transfer with min assist 6. Ambulate 150 feet with close CGA of one, FWW, L AFO 7. Manage 1 step w/ walker P: Cont PT 5-6 per week for therapy including Bed mobility, Transfers, Positioning, Safety , Precautions/protocol, Gait , Activity pacing/Energy conservation, Role of therapy, Balance and Discharge planning and pt /family/caregiver education. Discharge Recommendations: Rehab Total time spent with patient: 45 minutes w OT Total timed interventions: 25 minutes-functional mobility, neuro re-ed Pager: [phone] Yenifer Thakur PT Physical Therapy Rehabilitation Department * Kandace Arana DT - 01/30/2015 10:06 AM EST Nutrition Services - Initial Note Mirna Milton : 1945 AGE: 69 y.o. There are no active problems to display for this patient. ID: w/ brain abscess, s/p sterotactic bx 01/27 Reason for Nutrition Intervention: Diagnosis Diet Order: Regular Appetite: Good Food allergies: NKFA Ht Readings from Last 3 Encounters: 01/27/15 188 cm (6' 2) 01/27/15 188 cm (6' 2) Wt Readings from Last 3 Encounters: 01/27/15 97.977 kg (216 lb) 01/27/15 97.977 kg (216 lb) Body mass index is 27.72 kg/(m^2). Assessment: Patient denies need for nutrition education. He stated a great appetite without problems chewing or swallowing. Denied need for supplements or high protein snacks at this time. Contact Food & Nutrition if questions arise. Nutrition Plan: Continue current diet. Monitor weight. Encourage good po intake. Support and encouragement provided. Nutrition services to follow weekly thru hospital course unless consulted in the interim. RIVERA Nelson * Eber Solis RN - 01/30/2015 9:46 AM EST Patient Name: Mirna Milton Patient Age: 69 y.o. Birthdate: 1945 Admit date: 01/27/2015 Attending Physician: Jose Santiago MD Office of Care Management (OCM) / Clinical Heat Treat Inspector (CRC)/ Initial Assessment Discussed patient with Provider Team and in multidisciplinary discharge-planning rounds. Reviewed record and interviewed patient. Introduced/reviewed CRC role and services accepted. REASON for HOSPITALIZATION: Brain abscess s/p biopsy on IV abx PMH See e-dh PREVIOUS FUNCTIONAL STATUS: Independent at baseline. CURRENT FUNCTIONAL STATUS: See PT/OT notes. SOCIAL / FAMILY SUPPORTS: Spouse ADVANCE DIRECTIVES: AD on file. HEALTH /PRESCRIPTION COVERAGE: Medicare AB/ [place] [facility] REFERRAL: Available if needed. PRIMARY CARE PHYSICIAN: MIRNA OROSCO MD [id number] [facility] [id number] POTENTIAL DISCHARGE NEEDS: 69 y/o M s/p biopsy of brain abscess and on IV abx. PT evaluation shows patient would benefit for a short stay at rehab. Met with patient at bedside and he would like to make a referral with [facility] [address] [place] [id number] . Will ask RS to please make referral using [facility]. PATIENT/FAMILY EDUCATION NEEDS: On-going ANTICIPATED BARRIERS TO DISCHARGE: Not medically ready. TRANSPORTATION @ D/C: TBD PLAN: CRC will continue to monitor progress, follow for continuity of care and assist with discharge planning while hospitalized . * Evelio Correa MD - 01/30/2015 6:21 AM EST Neurosurgery - Inpatient Progress Note ID: Mirna Milton, 69 y.o. male w/ brain abscess, s/p sterotactic bx 01/27 POD 3 Interval Hx: -VAUGHN -Neurologically stable Objective: Medications: Scheduled Meds: ??? vancomycin 1 g Intravenous Q12H ??? [START ON 01/31/2015] Vancomycin Level - MAR Order Reminder NOT APPLICABLE Once ??? MEROpenem 2 g Intravenous Q8H ??? sodium chloride 0.9 % 5 mL Intravenous BID ??? famotidine 20 mg Oral Q12H Or ??? famotidine 20 mg Intravenous Q12H ??? levETIRAcetam 500 mg Oral BID Or ??? levETIRAcetam 500 mg Intravenous BID ??? dexamethasone inj 4 mg Intravenous Q6H POPPY Or ??? dexamethasone 4 mg Oral Q6H POPPY ??? insulin aspart 1-4 Units Subcutaneous TID AC Continuous Infusions: ??? niCARdipine PRN Meds:sodium chloride 0.9 %, lidocaine, acetaminophen OR acetaminophen, oxyCODONE OR oxyCODONE, HYDROmorphone, labetalol, hydrALAZINE, niCARdipine, polyethylene glycol, lactulose, bisacodyl, bisacodyl, ondansetron OR ondansetron, metoclopramide, dextrose 50% OR glucagon (human recombinant), [DISCONTINUED] vancomycin AND Vancomycin, trough AND Vancomycin Level - MAR Order Reminder Vitals: Temp: [36.4 ??C (97.5 ??F)-36.9 ??C (98.4 ??F)] Heart Rate: [56-68] Resp: [16-20] BP: (137-163)/(60-91) SpO2: [94 %-98 %] I/O: Intake/Output Summary (Last 24 hours) at 01/30/15 06 Last data filed at 01/30/15 0605 Gross per 24 hour Intake 703 ml Output 700 ml Net 3 ml Labs: Recent Labs 01/29/15 0534 01/28/15 0246 01/27/15 1440 WBC 12.6* 14.0* 15.2* HGB 12.6* 13.8 15.6 PLATELET 237 261 250 Recent Labs 01/29/15 0534 01/28/15 0246 01/27/15 1440 NA 138 139 136 K 4.1 4.5 4.2 CL 102 101 95* CO2 24 24 26 BUN 21* 21* 22* CREATININE 0.77* 0.86 0.91 Recent Labs 01/27/15 1440 PT 14.8 INR 1.1 Physical Exam: -NAD -AAOx3 -Speech fluent and appropriate. -PERRL. EOMI. -No facial asymmetry -Tongue midline -Motor: RUE:5/5 biceps, 5/5 triceps, 2/5 deltoids, 2/5 trap, 5/5 heavy media operator LUE:5/5 RLE: 5/5 LLE: 5/5 -Sensation intact to LT x 4 Cx: Strep Milleri Assessment/Plan:: 69 y.o. male s/p stereotactic bx of intracranial abscess, positive for strep milleri. Neurologically stable. - Close neurological observation, q4 checks - Vanc, meropenem - Dex for cerebral edema - Keppra for sz ppx - SBP <160 - Hold anticoagulation - GI PPx NEUROLOGIC: brain compression GI: malnutrition (protein/calorie restriction) x cerebral edema post-operative ileus comatose delirium FLUIDS: hyponatremia encephalopathy hypernatremia alcohol withdrawal hyperkalemia seizures hypokalemia hypovolemia CARDIOVASCULAR: atrial fibrillation atrial flutter ENDOCRINE: diabetes mellitus hypertension hyperglycemia hypotension hypothyroid heart failure shock RENAL: acute renal failure venous thrombosis chronic renal failure RESPIRATORY: acute respiratory failure HEMATOLOGY: anemia atelectasis neutropenia pleural effusion thrombocytopenia pneumonia coagulopathy pneumothorax DIC pulmonary embolism INFECTION: bacteremia UTI OTHER: morbid obesity (BMI >40) SIRS underweight (BMI <19) sepsis wound care * Tatiana Shankar PharmD - 01/29/2015 7:29 PM EST Clinical Pharmacist Note-Vanc Mirna Milton [id number] 1945 Mirna Milton is a 69 y.o. male is being monitored due to antibiotic therapy which includes intravenous vancomycin. Regimen: Vancomycin 1750 mg every 12 hours Indication: treatment of brain abscess Initiation Date:01/27 Day of Therapy:2 Targeted Goal Range: 15 - 20 mcg/mL Pharmacokinetic information: Wt Readings from Last 1 Encounters: 01/27/15 97.977 kg (216 lb) Ht Readings from Last 1 Encounters: 01/27/15 188 cm (6' 2) Labs: Vancomycin: Vanc Trough (mg/L) Date Value 01/29/2015 30.5* Creatinine clearance: Creatinine (mg/dL) Date Value 01/29/2015 0.77* Estimated Half-Life (T1/2) = 12.6 hours: Estimated Volume of distribution (Vd) = 68.6 Liters Recommendations: Dosing recommendations: ?? Based on this information a dose of 1000 mg every 12 hours, to start at 400 (time) on 01/30/15 should achieve an estimated trough level of 15 - 20 mcg/mL. Monitoring recommendations: ?? A new steady state level should be achieved after 4 half-lives. I suggest rechecking a vancomycin trough level (30 minutes prior to a scheduled dose) on 01/31/15. We will continue to monitor the patient as long as he remains on vancomycin therapy. Please watch SCr, BUN and fluid status closely. Please page the care area pharmacist with any questions you may have. Alternately, during off-hours you may call [phone] to contact a pharmacist. Tatiana Shankar PHARMD Pager [phone] * Burt Keller, PT - 01/29/2015 5:28 PM EST Physical Therapy Treatment Note Visit #: 2 Patient Dx: Mirna Milton is a 69 y.o. male patient of Dr. Santiago, Jose Torres MD, admitted on 01/27/2015 from OS for evaluation of brain mass. Pt s/p stereotactic biopsy. Social History: Patient lives with his . 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 2 steps in, no railing. Regular height toilet with grabbar, tub/shower. Hardwood floors throughout. DME: shower chair Baseline ADL/Mobility: Independent with ADL???s and IADL???s Precautions: left sided paresis, left foot drop; fall risk. Interval History: brought shoes in. S: They told me you would be in today. It made me felt more confident in that ankle, regarding the brace. Don't you worry, I will call for the nurse... I don't want to fall. O: Patient seen this afternoon on for 35 mins for functional mobility. Pt demonstrated the following: ?? pt in the recliner when PT arrived, PT donned left LE sleeve donned and also donned left AFO andshoe for patient while he was reclined in the recliner. ?? Pt needed assist to wilmar Right shoe in sitting. ?? Sit to stand from recliner with contact guard with gait belt. ?? Pt ambulated 60 ft and 45 ft with rolling walker and Left AFO and shoes on with contact guard tomin assist at times for walker and cues for LE management; 2nd person following with chair and assisting with IV pole; as he fatigues he tends to scissor more and needs cues to increase MARCO; also increased knee hyperextension as he fatigued. ?? Educated on pacing and to rest as needed. ?? 1 sitting rest during walk; sit<->stand with contact guard and to/from recliner. ?? In sitting reviewed LAQ ther-ex for BLEs, pt reports LLE is extending better today. Still no active movement of left ankle, and pt reports history of baseline left ankle injury with more limited left ankle ROM than the right. ?? Pt left sitting with dinner tray set up and all needs in reach; pt is aware to call for RN staffassistance with all mobility. ?? Skin check done and no skin issues after wearing left AFO; pt educated to have his bring insome high stockings/socks. Pain: no report of pain. Education: Patient education as above, and pt aware to call for staff trainer assistance with all mobility. Staff Communication: Patient status, treatment, and mobility recommendations discussed with nursing. A: Pt is a very pleasant man, who is making gains in his mobility and function and is very motivated. He needs cues for pacing and to rest as needed. He needs 1-2 assist for safety with all mobility,and he mobilizes better with Left AFO in place. He is aware of his deficits, but tends to want to push himself. Expect continued steady gains in his mobility. A walker, use of the AFO and gait belt, with 2 assist present are recommended for safety with mobility at this time. Pt may possibly benefitfrom a rehab stay prior to d/c to home, but this was not discussed today. Pt will benefit from ongoing therapeutic interventions to achieve the below therapy goals- Physical Therapy Goals: - The below Goals remain appropriate and ONGOING: Pt will achieve the following by 72 hours 1. Demonstrate knowledge of safety limitations and precautions and will appropriately request assistance for functional activities and to mobilize. 2. Demonstrate understanding and carry over of appropriate exercises. 3. Perform bed mobility with min assist 4. Demonstrate midline sitting balance with indep 5. Perform sit <> stand transfer with min assist 6. Ambulate 75 feet with mod assist of one P: Cont PT 5-6 per week for therapy including Bed mobility, Transfers, Positioning, Safety , Precautions/protocol, Gait , Activity pacing/Energy conservation, Role of therapy, Balance and Discharge planning and pt /family/caregiver education. Discharge Recommendations: Home with support vs rehab pending amount of support available at home and pt's progression. Total time spent with patient: 35 minutes Total timed interventions: 35 minutes-functional mobility. Pager: [phone] Burt Keller, PT Physical Therapy Rehabilitation Department * Jojo Turner - 01/29/2015 11:12 AM EST Occupational Therapy Treatment Note #2 Patient profile: Mirna Milton is a 69 y.o. male patient of Dr. Santiago, Jose Torres MD, admitted on 01/27/2015 from OSH for evaluation of brain mass. Pt s/p stereotactic biopsy. Code Status: Full Code Precautions: RUE PICC, fall, L side weakness, L AFO Subjective: I will work at this Objective: Pt seen this a.m for strength/ROM and therex-functional. Cognitive Status/Behavior: alert, oriented to person, place, and time Range of motion, strength, coordination: ?? LUE full strong grasp, full range of elbow flexion/extension though incoordinated. Unable to lift LUE against gravity past 30 degrees, able to demonstrate self range of motion exercises using RUE as assist. ?? Spent time in education regarding LUE shoulder precautions and positioning. (Shoulder precautions: No shoulder flexion beyond 90 degrees, position shoulder in external rotation when at rest in bed (inside elbow crease up, elbow extended) ?? Educated in self-ROM below 90 degrees flexion from supine position and forward flexion/rocking technique when sitting upright. ?? Push/pull x10 with LUE and minimal resistance x2 sets supine and then again when sitting at EOB.Issued blue foam to continue to work on L UE strength/attention, (L hand strength WFL). Activities of Daily Living: Upper and lower body dressing and bathing: ?? anticipate assist due to decreased strength of LUE and LLE Toileting: Commode Transfer: one assist with L knee block/protection Functional Mobility: Supine to sit: contact guard. Sat at EOB with supervision for 10 minutes for therex. Sit to stand: cg A Transfer to R side from bed >chair with cgA and precautionary block at L knee which was not assisted. Stand to sit: contact guard-min A with cues for technique Did not work on ambulation as shoe was not present for L AFO. Should be present later today when PTplans to work on mobility. Pain: None Education: patient educated on Role of occupational therapy/rehabilitation, Transfers, Assistive device/technique, ADL, Exercise, Positioning, Safety, Functional Mobility, Activity pacing/Energy conservation, Balance and Recommendations and verbalizes and demonstrates understanding. Patient status, treatment, and mobility recommendations discussed with nursing. Assessment: Pt presents with improved mobility/transfers from initial eval yesterday. Additional ambulation wasdeferred 2' awaiting arrival of shoes to utilize AFO. Tolerated supine and EOB ex's well and is motivated to participate in therapies and return to independent function. He is agreeable to rehab prior to d/c home to optimize safety and independence. Pt would benefit from ongoing OT services to maximize functional independence. Recommendations: Discharge Recommendations: would benefit from structured rehab to maximize functional capabilities Goals: To be achieved by 02/04/15: 1. Pt will be supervision LE ADLs using one handed techniques. 2. Pt will be contact guard sit to stand functional transfers from bed, cc, toilet. 3. Pt will be set up for ADLs. 4. Pt will be modified independent self range of motion exercises LUE. 5. Pt will be close supervision with functional mobility with walker in the room for ADLs. 6. Pt will stand for 30 seconds with close supervision to enhance ADLs, unilateral UE support. Plan: Pt to be seen 3-5 x per week for therapy including Transfers, Assistive device/technique, ADL, Positioning, Safety, Functional Mobility, Activity pacing/Energy conservation, Balance, Recommendations and Discharge planning Eval Date: 01/29/2015 Total time spent with patient: 38 minutes. Total timed interventions: 38 minutes functional there ex Pager: [phone] KAITLYN Barron 01/29/2015 Occupational Therapy Rehabilitation Department * Elizabeth Orellana - 01/29/2015 8:09 AM EST NEUROSURGERY PROGRESS NOTE Mirna Milton [id number] 1945 ID: 69 y.o. gentleman with brain abscess, POD 2 from stereotactic biopsy INTERVAL Hx: - No acute events - Switched to vanc/meropenem MEDICATIONS: Scheduled Meds: ??? Vancomycin Level - MAR Order Reminder NOT APPLICABLE Once ??? MEROpenem 2 g Intravenous Q8H ??? sodium chloride 0.9 % 5 mL Intravenous BID ??? famotidine 20 mg Oral Q12H Or ??? famotidine 20 mg Intravenous Q12H ??? levETIRAcetam 500 mg Oral BID Or ??? levETIRAcetam 500 mg Intravenous BID ??? dexamethasone inj 4 mg Intravenous Q6H POPPY Or ??? dexamethasone 4 mg Oral Q6H POPPY ??? insulin aspart 1-4 Units Subcutaneous TID AC ??? vancomycin 1.75 g Intravenous Q12H Continuous Infusions: ??? niCARdipine EXAM: Temp: [36.3 ??C (97.3 ??F)-36.9 ??C (98.4 ??F)] Heart Rate: [59-82] Resp: [16-17] BP: (124-161)/(65-88) SpO2: [95 %-98 %] I/O last 3 completed shifts: In: 2422 [P.O.:960; I.V.:1150; Blood:312] Out: 2375 [Urine:2375] GEN:NAD NEURO:AA+Ox3 Speech fluent and appropriate. Naming and repetition intact. PERRL. EOMI. Visual jones full to confrontation. No facial asymmetry Tongue midline MOTOR: RUE:5/5 biceps, 5/5 triceps, 2/5 deltoids, 2/5 trap, 5/5 heavy media operator LUE:5/5 RLE: 5/5 LLE: 5/5 No pronator drift LT sensation intact x 4 Recent Labs 01/29/15 0534 01/28/15 0246 01/27/15 1440 WBC 12.6* 14.0* 15.2* HGB 12.6* 13.8 15.6 PLATELET 237 261 250 Recent Labs 01/29/15 0534 01/28/15 0246 01/27/15 1440 NA 138 139 136 K 4.1 4.5 4.2 CL 102 101 95* CO2 24 24 26 BUN 21* 21* 22* CREATININE 0.77* 0.86 0.91 Recent Labs 01/27/15 1440 PT 14.8 INR 1.1 A/P: 69 y.o. gentleman with brain abscess, POD 2 from stereotactic biopsy. Neurologically stable. Continue antibiotics, ID consult appreciated. PICC done. Awaiting sensitivities. 1. Neuro: Close monitoring. Q4 neuro checks. 2. CVS: BP control, keep SBP<160 3. Resp: IS 4. GI: regular diet, nexium 5. Hem: Hold off anticoagulation. SCDs. 6. ID: Vanc/meropenem d 2 7. : No issues 8. FEK: IVF until good PO. Monitor lytes. Elizabeth Orellana [id number] * Elizabeth Orellana - 01/28/2015 7:40 AM EST NEUROSURGERY PROGRESS NOTE Mirna Milton [id number] 1945 ID: 69 y.o. gentleman with brain abscess, POD 1 from stereotactic biopsy INTERVAL Hx: - No acute events - GPCC on OR cx, vanc/flagyl MEDICATIONS: Scheduled Meds: ??? sodium chloride 0.9 % 5 mL Intravenous BID ??? famotidine 20 mg Oral Q12H Or ??? famotidine 20 mg Intravenous Q12H ??? levETIRAcetam 500 mg Oral BID Or ??? levETIRAcetam 500 mg Intravenous BID ??? metroNIDAZOLE 500 mg Intravenous Q8H ??? dexamethasone inj 4 mg Intravenous Q6H POPPY Or ??? dexamethasone 4 mg Oral Q6H POPPY ??? insulin aspart 1-4 Units Subcutaneous TID AC ??? vancomycin 1.75 g Intravenous Q12H Continuous Infusions: ??? sodium chloride 0.9% with potassium chloride 20 mEq 75 mL/hr (01/27/15 1853) ??? niCARdipine EXAM: Temp: [36 ??C (96.8 ??F)-36.9 ??C (98.4 ??F)] Heart Rate: [53-92] Resp: [15-20] BP: (104-164)/(54-94) SpO2: [94 %-100 %] I/O last 3 completed shifts: In: 2049 [I.V.:1650; Blood:400] Out: 1255 [Urine:1250; Blood:5] GEN:NAD NEURO:AA+Ox3 Speech fluent and appropriate. Naming and repetition intact. PERRL. EOMI. Visual jones full to confrontation. No facial asymmetry Tongue midline MOTOR: RUE:5/5 biceps, 5/5 triceps, 2/5 deltoids, 2/5 trap, 5/5 heavy media operator LUE:5/5 RLE: 5/5 LLE: 5/5 No pronator drift LT sensation intact x 4 Recent Labs 01/28/15 0246 01/27/15 1440 WBC 14.0* 15.2* HGB 13.8 15.6 PLATELET 261 250 Recent Labs 01/28/15 0246 01/27/15 1440 NA 139 136 K 4.5 4.2 CL 101 95* CO2 24 26 BUN 21* 22* CREATININE 0.86 0.91 Recent Labs 01/27/15 1440 PT 14.8 INR 1.1 A/P: 69 y.o. gentleman with brain abscess, POD 1 from stereotactic biopsy. Neurologically stable. Continue antibiotics, ID consult today. PICC planned. OK to floor. 1. Neuro: Close monitoring. Q4 neuro checks. 2. CVS: BP control, keep SBP<160 3. Resp: IS 4. GI: regular diet, nexium 5. Hem: Hold off anticoagulation. SCDs. 6. ID: Vanc/flagyl d 2 7. : No issues 8. FEK: IVF until good PO. Monitor lytes. Elizabeth Orellana [id number] documented in this encounter H&P Notes * Jeffery Kahn T - 01/27/2015 4:03 PM EST NEUROSURGERY ADMISSION NOTE CC: brain mass HPI: We have been asked by Dr. Damian of [facility] to see Mirna Milton, a 69 y/o right-handed male, for evaluation of a brain mass. The patient developed left lower extremity incoordination three days prior to admission. He was seen at [facility] where a head CT was performed and interpreted as concerning for an ischemic infarct. He received 300mg of Plavix at that time in addition to his usual ASA. He subsequently developed worsening weakness in his upper and lower extremity, incoordination, as well asleft hand numbness. A MRI of the brain was performed and demonstrated a R frontal lesion felt to bemetastatic. A CT C/A/P was ordered as part of a w/u. He denies headache, nausea and emesis, difficulty w/ speech or language, R sided symptoms. No unintentional weight loss. No h/o malignancy. He wastransferred or further treatment and brain bpx due to concerns for intracranial abscess upon interpretation of imaging here. He denies other sources of infection included dental caries but does have sore left tooth. His past medical history is notable for hypertension and hyperlipidemia. Six years ago he had dyspnea w/ exertion related to CAD and has five coronary stents placed. No current cardiac symptoms. No other pulmonary disease, renal or hepatic dysfunction, endocrine dysfunction, bleeding disorders, or seizure or stroke. No other surgeries. Medications reviewed. He has facial swelling with penicillin.Remote tobacco use. 2 shots of whiskey per night. No other Rx use including IVDU. He is retried from the [facility]. EXAM: AF. AVSS GEN:NAD NEURO:AA+Ox3 Spontaneous speech fluent and appropriate. Naming and repetition intact PERR. EOMI. VFF No facial asymmetry Tongue midline MOTOR EXAM: RUE: 5/5 RLE: 5/5 LUE: 4/5 LLE: 4/5 Incoordination w/ left LT sensation intact x 4 Lab Results Component Value Date/Time WBC 15.2* 01/27/2015 2:40 PM HGB 15.6 01/27/2015 2:40 PM PLATELET 250 01/27/2015 2:40 PM Lab Results Component Value Date/Time NA 136 01/27/2015 2:40 PM K 4.2 01/27/2015 2:40 PM CL 95* 01/27/2015 2:40 PM CO2 26 01/27/2015 2:40 PM BUN 22* 01/27/2015 2:40 PM CREATININE 0.91 01/27/2015 2:40 PM MRI BRAIN: 15 x 15mm R frontal ring enhancing lesion. Diffusion restriction as well as T2 hypointense rim No other lesions. CT C/A/P: Some mediastinal lymphadenopathy but no other lesions. A/P: 69 y/o male admitted w/ R frontal lesion and left hemiparesis. The lesion is consistent in appearance w/ a pyogenic abscess although metastatic tumor or glial neoplasm cannot be excluded. + leukocytosis. Due to the concern for abscess need to proceed with urgent brain bpx. He has received Plavix as well as ASA which increases his risk of hemorrhage. Discussed this with the patient and he understands. Will transfuse with platelets based on recommendations from blood bank. Other risks of surgery discussed as well. documented in this encounter Miscellaneous Notes * Discharge Summary - Sharlene Lorenzana APRN - 01/31/2015 10:07 AM EST Inpatient - Discharge Summary Patient Name: Mirna Milton Patient Age: 69 y.o. Birthdate: 1945 Admit date: 01/27/2015 Discharge date and time: 01/31/2015 Attending Physician: Jose Santiago MD Discharge Diagnoses (Hospital Problems) and Secondary Diagnoses (Chronic Problems): Active Hospital Problems Diagnosis ??? Brain abscess Resolved Hospital Problems Diagnosis Date Resolved No resolved problems to display. Operations/Major Procedures: 01/28/2015: Stereotactic brain biopsy, Dr. Santiago History of Presentation: We have been asked by Dr. Damian of [facility] to see Mirna Milton, a 69 y/o right- handed male, for evaluation of a brain mass. The patient developed left lower extremity incoordination three days prior to admission. He was seen at [facility] where a head CT was performed and interpreted as concerning for anischemic infarct. He received 300mg of Plavix at that time in addition to his usual ASA. He subsequently developed worsening weakness in his upper and lower extremity, incoordination, as well as lefthand numbness. 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 A CT C/A/P was ordered as part of a w/u. He denies headache, nausea and emesis, difficulty w/ speech or language, R sided symptoms. No unintentional weight loss. No h/o malignancy. He was transferred or further treatment and brain bpx due to concerns for intracranial abscess upon interpretation of imaging here. He denies other sources of infection included dental caries but does have sore left tooth. His past medical history is notable for hypertension and hyperlipidemia. Six years ago he had dyspnea w/ exertion related to CAD and has five coronary stents placed. No current cardiac symptoms. No other pulmonary disease, renal or hepatic dysfunction, endocrine dysfunction, bleeding disorders, or seizure or stroke. No other surgeries. Medications reviewed. He has facial swelling with penicillin.Remote tobacco use. 2 shots of whiskey per night. No other Rx use including IVDU. He is retried from the [facility]. Hospital Course: Patient was taken to the OR to undergo sterotactic brain biopsy of a right frontal lesion. He tolerated the procedure well and there were no intraoperative complications. Final cultures obtained in the OR yielded Streptococcus milleri. He was initially started on broad-spectrum antibiotics and thentransitioned to Ceftriaxone per Infectious Diseases once final culture data were available. Decadron taper was started for cerebral edema and Keppra was started for seizure prophylaxis. A transthoracic echo was obtained to evaluate for endocarditis or source of infection. He was evaluated by rehab therapies. At time of discharge, patient was afebrile, voiding spontaneously, tolerating a regular diet, and managing pain with oral medications. He was hemodynamically stable and neurologically intact. He was discharged to rehab in stable condition. Important Studies and Lab Data: Labs: Lab Results Component Value Date/Time WBC 8.7 01/31/2015 6:02 AM HGB 12.8* 01/31/2015 6:02 AM HCT 37.5* 01/31/2015 6:02 AM PLATELET 237 01/31/2015 6:02 AM NA 137 01/31/2015 6:02 AM K 4.0 01/31/2015 6:02 AM CL 99 01/31/2015 6:02 AM CO2 29 01/31/2015 6:02 AM BUN 24* 01/31/2015 6:02 AM CREATININE 0.76* 01/31/2015 6:02 AM Studies: MRI brain with contrast, 01/27/2015: FINDINGS: The rim-enhancing lesion in the paramedian right precentral gyrus is unchanged compared to the prior exam. Surrounding edema is similar. No new lesions are identified. IMPRESSION: Unchanged rim-enhancing collection in the right precentral gyrus. MRI head and spine, 01/27/2015: FINDINGS: MRI brain: A rim-enhancing lesion with extensive surrounding edema is present in the superior aspect of the right precentral gyrus. The lesion demonstrates a T2 hypointense rim, and has centrally restricted diffusion within it. There is localized mass effect and sulcal effacement. The ventricles remain normal in size and contour. There is no other area of abnormal enhancement, or restricted diffusion. MRA [place]: Intracranial internal carotid arteries are normal in caliber bilaterally. MCA, HARRY, and visualized branches are normal. There is relatively poor flow related enhancement of a portion of the intradural vertebral artery. The left intradural vertebral artery is normal. Basilar artery is normal in caliber. Posterior cerebral arteries are unremarkable. MRA neck: 2-D [id number] images demonstrate normal antegrade flow in the carotid arteries and in the left vertebral artery. There is poor flow related enhancement of the right vertebral artery. There is a common origin of the right brachiocephalic and left common carotid artery. Common carotid artery arteries are normal in caliber. There is minimal narrowing of the ICA at the carotid bifurcation bilaterally due to atherosclerotic plaque. Cervical ICAs are otherwise normal in caliber. There appears to be mild narrowing at the left vertebral origin. Cervical left vertebral artery is otherwise normal in caliber throughout. There are irregular areas of narrowing of the cervical right vertebr al artery, and the superior cervical and intradural portions do not appear to be opacified. The proximal intradural portion between the PICA origin and confluence of the basilar is opacified, and this may be filling retrograde. IMPRESSION: 1. Posterior right frontal rim-enhancing lesion. Imaging characteristics are strongly suggestive ofabscess. Metastatic neoplasm or primary glial neoplasm are considered to be less likely. 2. Minimal flow in the cervical right vertebral artery, which may be severely stenotic or occluded.There appears to be retrograde flow from the basilar confluence to the right PICA origin. CT Chest/Abdomen/Pelvis, 01/27/2015: FINDINGS: Chest: The lungs are clear. No pulmonary nodules, areas of airspace consolidation or pleural effusion. A nonspecific, 2.0 cm right paratracheal lymph node is seen. A 12 x 18 mm AP window lymph node is seen.No axillary adenopathy. No hilar adenopathy. No pericardial effusion. Abdomen/pelvis: The liver is unremarkable. No mass lesions. No dilated biliary ducts or perihepatic fluid. The spleen is remarkable for a benign-appearing, approximate 7 mm hypodensity, compatible with either a cystor small hemangioma. No Splenomegaly. The pancreas is unremarkable. The gallbladder and adrenal glands are unremarkable. The kidneys symmetrically enhance. No renal masses. No hydronephrosis. No perinephric fluid. No small bowel obstruction or areas of abnormal small bowel wall thickening. Scattered clonic diverticula arenoted. No diverticulitis. No free fluid. No free air. No abdominal or pelvic lymphadenopathy. The prostate gland is enlarged. No suspicious osseous lesions. IMPRESSION: Nonspecific, mildly enlarged mediastinal lymph nodes, as described. Abdomen and pelvis unremarkable, aside from enlargement of the prostate gland. Pending Studies and Lab Data: None Discharge Conditions/Prognosis: Stable Discharge to: [place], [place] Discharge Medications: Your Medications New Medications Dose Details acetaminophen 325 mg Tab Commonly known as: TYLENOL Take 2 tablets by mouth every 4 hours as needed for Pain (mild pain). 650 mg Quantity: 30 tablet Refills: 1 cefTRIAXone 2 gram/50 mL Pgbk Commonly known as: ROCEPHIN Inject 50 mLs into the vein every 12 hours. 2 g Quantity: 1 each Refills: 0 dexamethasone 1 mg Tab Commonly known as: DECADRON Take 4 tablets by mouth See Admin Instructions. Take 4 tablets by mouth twice daily for 3 days, then take 2 tabs twice daily for 3 days, then take 1 tab twice daily for 3 days, then take 1 tab daily for 3 days, and then stop. 4 mg Refills: 0 famotidine 20 mg Tab Commonly known as: PEPCID Take 1 tablet by mouth 2 times daily. 20 mg Quantity: 30 tablet Refills: 12 levETIRAcetam 500 mg Tab Commonly known as: KEPPRA Take 1 tablet by mouth 2 times daily. 500 mg Quantity: 60 tablet Refills: 12 Continued medications, unchanged Dose Details atorvastatin 10 mg Tab Commonly known as: LIPITOR Take 10 mg by mouth daily. 10 mg Refills: 0 lisinopril 10 mg Tab Commonly known as: PRINIVIL;ZESTRIL Take 10 mg by mouth daily. 10 mg Refills: 0 Updated Allergies/ADRs: Allergies Allergen Reactions ??? Penicillins Angioedema States as a child, had facial, lip swelling. Follow-up Recommendations for Providers: Infectious Diseases follow-up: - IV ceftriaxone 2 gm every 12 hrs for at least 6 weeks (start date 01/27/15) and further therapy depends on clinical improvement and imaging studies - Monitor CBC, CMP, CRP, ESR weekly - Repeat imaging of brain at 4 weeks - ID clinic follow up in 2 weeks from discharge Instructions Given to Patient at Discharge: Patient Instructions Primary Reason for Hospitalization: Brain abscess Condition at Discharge: Stable Special Physician Instructions: Discharge Instructions ACTIVITY: - You may shower/bathe. Have someone near in case you need help. - Increase your activity as tolerated - You may tire easily, so frequent rest periods may be necessary - No heavy lifting for first two weeks DIET: - Resume your usual diet. Fresh fruit, vegetables and fiber containing foods are recommended. - Stool softeners, or mild laxatives may be used as needed. COMFORT: - It is normal to have some soreness in/around your incision. - Take your pain medication as ordered/needed - Taper use of pain medication as pain lessens. CALL YOUR DOCTOR FOR: - Fever over 101 F - Redness, swelling, increasing pain or drainage from your incision. - Worsening headaches - Unsteadiness when walking/new weakness - Slurred speech - Visual changes - Drowsiness/confusion - Nausea/vomiting - Convulsions/seizures - Pain not relieved with mild medication Call 911 or your local EMS if you have sudden weakness or numbness in your face or one of your limbs, slurred speech, loss of vision, or difficulty speaking. It is important to seek medical attentionas soon as possible, as these symptoms could be related to a new stroke/hemorrhage. Prescriptions: [X] Anticonvulsants (Anti-seizure medication): Keppra You are being discharged home on anticonvulsants (Keppra). Take the medication as directed. [X] Steroids: Decadron You are being discharged home on Decadron (dexamethasone). Decadron is used to reduce tissue swelling in the brain. It should be taken two times a day at 8 amand around 2 pm. This medication will be gradually reduced every three days over the next 1 to 2 weeks. If you experience any symptoms during the tapering schedule, please call the nurse practitioner at [phone] or your Neurosurgeon. [X] Pepcid You are being sent home on a medication to protect your stomach while you are taking steroids. Onceyou have finished taking the steroids, you may stop this medication. At your follow-up appointment with Neurosurgery, ask how long you need to continue taking this medication. If you have difficulty affording this medication please contact us for prescription assistance. Anti-coagulation follow up: No aspirin, heparin, NSAIDs or anticoagulants Activity level: As tolerated Diet: Regular Driving: No driving until your follow-up appointment with Neurosurgery Shower/Bath: [place] Wound Care: Baring out 2 weeks after surgery - on February 11, 2015. These may be removed at rehab. Follow up Appointments: 1) Please follow up with Infectious Diseases. Your appointment is listed below. 2) Please follow up with Dr. Santiago in the outpatient Neurosurgery clinic in 4-6 weeks. Please call his office at the number below if you do not receive an appointment card in the mail within 2-3 weeks. 3) Please follow up with your dentist in 2-3 weeks for evaluate for any dental abscess. IMPORTANT PHONE NUMBERS: Outpatient Nurse (Latisha Parra) Inpatient Nurses Neurosurgical Resident Personnel Research Psychologist (after 5pm or before 8am) Neurosurgery offices (between 8am-5pm): Dr. Santiago Dr. Ceron (pediatric neurosurgery) Dr. Tello: Pediatric Patients , Adult Patients Dr. Forrester Dr. Delgado Dr. Glavez Dr. Interiano Juaquin Mad[place], Physician Machine Tester Sharlene Lorenzana, Nurse Practitioner Juaquin Short, Physician Machine Tester Kisha Teixeira, Nurse Practitioner CC: MIRNA OROSCO MD Future Appointments and Orders Future Appointments Provider Department Dept Phone 01/31/2015 3:45 PM Echo Inpatient Add-On Non-Invasive Cardiology Lab [phone] 02/14/2015 11:30 AM Iraj Hernandez MD Infectious Disease [phone] 03/09/2015 10:30 AM Gaudencio Mata MD Infectious Disease [phone] Future Orders Complete By Expires OPAT: Order / Recommendation for Post Discharge IV Antibiotic Management [QLV713 CPT(R)] As directed Process Instructions: If no progress note charted, please enter Clinical details in comments. Scheduling Instructions: Comments: Please Fax all results to: OPAT Program Infectious Disease Section [facility] [place], [place] [address] FAX: Line care instructions per [facility] OPAT Program protocol. After hours, please contact the Infectious Disease Physician vocational rehabilitation counselor at . If this order was signed greater than 72 hours prior to [facility] discharge, please call to confirm the accuracy of this order. Questions: ID Diagnosis: Brain Abscess Microorganisms being treated: Strep milleri Antibiotic Allergies: Penicillin Antibiotic (one line for each ABx): Ceftriaxone 2 gms IV q12h Start date: 01/27/2015 Anticipated stop date: 03/10/2015 Labs: Every Friday: CBC, CMP, ESR, high sensitivity CRP Responsible Attending: Sharad Lazaro MD Last documented weight (kg): 97.977 kg (216 lb) Last documented height (cm): 188 cm (6' 2) Electronically Signed By: Sharlene Lorenzana APRN 01/31/2015 * Plan of Care - yKung Chang RN - 01/31/2015 1:59 AM EST Problem: General Plan of Care Goal: Plan of Care Review Outcome: Ongoing (Interventions Implemented as Appropriate) 01/31/15 0149 Plan of Care Review Plan of Care Outcome Status ongoing (interventions implemented as appropriate) Progress progress toward functional goals as expected Coping/Psychosocial Response Interventions Plan of Care Reviewed with patient OUTCOME EVALUATION NOTE: OUTCOME SUMMARY: Denies pain/n/t this shift. Ambulates with 2 assist and walker to bathroom due to left side weakness. Uses AFO brace to LLE when ambulating. Dressing to parietal lobe intact. Heartrate dropping below 45 bpm while pt sleeping per masimo. Per Mima Correa MD ok to decrease masimo parameter to 40. PLAN MOVING FORWARD: I/O's. Neuro checks Q4 hours. Continue scheduled vancomycin and meropenem IV. Fall precautions. INDIVIDUALIZED FALL PREVENTION: Assistance: Oob with 2 assist and walker. Supervision: Call hinkle in reach at all times and pt uses appropriately. Surveillance: Purposeful rounding. Masimo. CPG GOAL OUTCOME EVALUATION: Goal: Fall Prevention-Safe Patient Handling Outcome: Ongoing (Interventions Implemented as Appropriate) 01/30/15 0800 01/30/15 2100 Safety Interventions Safety Precautions/Fall Reduction -- assistive device Musculoskeletal Interventions Activity/Level of Assistance -- with 1-person assist;with 2-person assist Positioning -- independent Muscle Strengthening activity/mobility promoted;personal routines for BADL/IADL promoted;up in chair encouraged for meals and activities -- Self-Care Promotion independence encouraged while providing assistance -- Activity and Safety Assistive Device -- Front wheel walker Dunn Fall Risk History of Falling -- 0 Secondary Diagnosis -- 15 Ambulatory Aids -- 15 Intravenous Therapy/Heparin/Saline Lock -- 20 Gait/Transferring -- 10 Mental Status -- 0 Score -- 60 OTHER Dunn Fall Risk -- High Goal: Infection Control Outcome: Ongoing (Interventions Implemented as Appropriate) 01/30/15 1539 01/30/15 2100 Coping/Psychosocial Response Interventions Counseling calming techniques promoted;emotional support provided -- Safety Interventions Isolation Precautions -- standard precautions maintained Infection Prevention -- blood glucose management Goal: Discharge Needs Assessment 01/31/15 0149 Discharge Needs Assessment Concerns to be Addressed no discharge needs identified Readmission Within the Last 30 Days no previous admission in last 30 days Equipment Needed After Discharge walker, rolling Discharge Facility/Level of Care Needs rehabilitation facility Current Discharge Risk physical impairment Current Health Anticipated Changes Related to Illness none Self-Care Equipment Currently Used at Home none Living Environment Transportation Available family or friend will provide * Plan of Care - Faby Singh RN - 01/30/2015 3:52 PM EST Problem: General Plan of Care Goal: Plan of Care Review Outcome: Ongoing (Interventions Implemented as Appropriate) 01/30/15 1539 Plan of Care Review Plan of Care Outcome Status ongoing (interventions implemented as appropriate) Progress improving Coping/Psychosocial Response Interventions Plan of Care Reviewed with patient OUTCOME EVALUATION NOTE: OUTCOME SUMMARY: Pt neurologically intact, A&Ox4, AVSS. Pt continues with L-sided weakness >UE, see PT/OT notes for greater detail. Needs assistance and mobility aid when mobilizing, can overestimate safety limitations at times. 2-assist with walker, able to ambulate short distance to BR/ commode. Very motivated for continued work with rehab, practicing exercises in bed. Pt continues with IV antibiotics, PICC site benign, flushing well. Good PO intake, voiding adequately. Ringing appropriately for needs. PLAN MOVING FORWARD: Expected d/c to [facility] when medically appropriate. TTE in AM. Continue toencourage mobilization/ strengthening. Monitor Nilo-hole incisions. INDIVIDUALIZED FALL PREVENTION: Assistance: 2-assist out of bed to bathroom, minimal assistance with ADLs. Supervision: Call light within reach, personal items at bedside. Surveillance: Purposeful hourly rounding, DORIAN Wilcoxs. CPG OUTCOME EVALUATION: Goal: Fall Prevention-Safe Patient Handling 01/30/15 0800 Safety Interventions Safety Precautions/Fall Reduction fall reduction program maintained;assistive device Musculoskeletal Interventions Activity/Level of Assistance up in room;ambulated;with walker;with 2-person assist Positioning up in chair Muscle Strengthening activity/mobility promoted;personal routines for BADL/IADL promoted;up in chair encouraged for meals and activities Self-Care Promotion independence encouraged while providing assistance Goal: Infection Control 01/30/15 1539 Coping/Psychosocial Response Interventions Counseling calming techniques promoted;emotional support provided Safety Interventions Isolation Precautions standard precautions maintained Infection Prevention blood glucose management;hydration promoted;nutrition promoted Goal: Discharge Needs Assessment 01/30/15 1539 Discharge Needs Assessment Concerns to be Addressed no discharge needs identified Readmission Within the Last 30 Days no previous admission in last 30 days Discharge Facility/Level of Care Needs rehabilitation facility Current Health Outpatient/Agency/Support Group Needs inpatient rehabilitation facility Anticipated Changes Related to Illness none Self-Care Equipment Currently Used at Home none Living Environment Transportation Available family or friend will provide Problem: Health Knowledge, Opportunity for Enhanced (Adult, NICU, [place], Obstetrics, Pediatric) Goal: Identify Signs and Symptoms and Related Risk Factors Signs and symptoms and related risk factors are identified upon initiation of Human Response Clinical Practice Guideline (CPG) 01/30/15 1539 Health Knowledge, Opportunity for Enhanced Physiological Related Risk Factors (Health Knowledge, Opportunity for Enhanced) new development in disease process Problem: Craniotomy/Craniectomy/Cranioplasty (Adult) Goal: Signs and symptoms of listed potential problems will be absent or manageable (reference (Craniotomy/Craniectomy/Cranioplasty (Adult)) [facility]) 01/30/15 1539 Craniotomy/Craniectomy/Cranioplasty Problems Assessed (Craniotomy/Craniectomy/Cranioplasty) all Problems Present (Craniotomy/Craniectomy/Cranioplasty) none * Op Note - Jose Santiago MD - 01/30/2015 6:30 AM EST [facility] Operative Note Patient Name: Mirna Milton : [id number] MR#: [id number] Case Date: 01/27/2015 Surgeon: Surgeon(s) and Role: * Jose Santiago MD - Primary * Jeffery Kahn MD - Resident-Surgeon Dinh * Dustin Parker MD - Resident-Surgeon Chief Preoperative diagnosis: ABSCESS Postoperative diagnosis: ABSCESS Procedure(s): @STEREOTACTIC BX,ASP, OR EXC.-INTRACRANIAL LESION, W/SCAN STEREOTACTIC COMPUTER-ASSTD NAVIGATIONAL CRANIAL INTRADURAL Indications: The patient is a 69-year-old male transferred to [facility] for evaluation of a right frontal brain lesion associated with left hemiparesis. The MRI demonstrated a ring-enhancing lesion with diffusion restriction as well as a T2 hypointense rim that was concerning for a cerebral abscess. The patient had been previously loaded with Plavix as well as aspirin and received a platelet transfusion to minimize his risk of intraoperative hemorrhage. After discussing the options for treatment, it was felt necessary to proceed emergently to the operating room for a stereotactic brain biopsy and initiation of antibiotic therapy as appropriate. Description: The patient was brought into the operating room, where endotracheal intubation with administration of general anesthetics was performed. The patient was positioned in the supine position with his head supported in the Joseph head clamp with three-point fixation. The right aspect of the calvaria was exposed. A preoperative MRI with fiducials had been obtained as well for neuronavigation with the Stealth. After coregistration was performed with the [employer] navigation system, the biopsy plan was then planned and marked on the scalp. The target was the center of the lesion. Our trajectory approached the lesion from a frontal trajectory that was anterior to the lesion to avoid the motor cortex. The calvaria was then shaved to expose this area. Skin was prepped in the usual manner. Antibiotics were not administered prophylactically due to the need for cultures. A #10 blade was used to create an incision dissecting down to the calvaria. The scalp was then reflected away from the skull. A hospice office coordinator was then used to create a nilo hole. The Stealth stereotactic biopsy kit was then opened and the mounting guide was then attached to the calvaria. The dura was then opened with a #11 blade scalpel and the dural edges were coagulated with use of the bipolar electrocautery. A corticotomy was performed as well. The cortex appeared grossly abnormal. At this point in time, the use of the Stealth was necessary to create set up for our stereotactic biopsy. A brain needle was then advanced to the target depth. Core specimens were obtained at multiple orientations at the target depth. The material appeared grossly purulent and the brain that was obtained also appeared grossly abnormal. The tissue was sent for a stat Gram stain, which demonstrated gram-positive cocci. All other specimens were sent for culture as well as pathology. Following removal of the brain needle, there was no evidence of bleeding. All equipment was then removed and the incision was irrigated copiously with lactated Ringer's solution with bacitracin at this point. One gram of vancomycin was also administered. The scalp was closed with 3-0 interrupted Vicryl stitches and the skin was closed with laura. The patient was awakened from general anesthesia with no evidence of intraoperative complications. Estimated blood loss was approximately 500 mL. The patient received 500 mL of crystalloid as well as [address] Santiago was present for the entire portion of the surgery. * Plan of Care - Kyung Chang RN - 01/30/2015 2:33 AM EST Problem: Skin Integrity Impairment, Risk/Actual (Adult, Obstetrics) Goal: Identify Signs and Symptoms and Related Risk Factors Signs and symptoms and related risk factors are identified upon initiation of Human Response Clinical Practice Guideline (CPG) Outcome: Ongoing (Interventions Implemented as Appropriate) 01/30/15 0216 Skin Integrity Impairment, Risk/Actual Physiological Related Risk Factors (Skin Integrity Impairment, Risk/Actual) infection Treatment Related Related Risk Factors (Skin Integrity Impairment, Risk/Actual) invasive catheters;medication OUTCOME EVALUATION NOTE: OUTCOME SUMMARY: Pleasant and cooperative with care. Neuro checks intact. Left side weakness. Cranidressing d/i with some shadowing. Denies pain. PLAN MOVING FORWARD: Continue with vancomycin and meropenem IV. Neuro checks Q4 hours. Fall precautions. INDIVIDUALIZED FALL PREVENTION: Assistance: Out of bed with 2 assists and walker. Supervision: Minimal assist with ADL's. Surveillance: Purposeful rounding. Brenden. CPG GOAL OUTCOME EVALUATION: Goal: Skin Integrity/Wound Healing Patient will demonstrate the desired outcomes. Outcome: Ongoing (Interventions Implemented as Appropriate) 01/30/15 021 Skin Integrity Impairment, Risk/Actual (Adult, Obstetrics) Skin Integrity/Wound Healing making progress toward outcome * Plan of Care - So Martinez RN - 01/29/2015 1:56 PM EST Problem: General Plan of Care Goal: Plan of Care Review Outcome: Ongoing (Interventions Implemented as Appropriate) 01/29/15 1350 Plan of Care Review Plan of Care Outcome Status ongoing (interventions implemented as appropriate) Progress improving Coping/Psychosocial Response Interventions Plan of Care Reviewed with patient OUTCOME EVALUATION NOTE: OUTCOME SUMMARY: Pt is A&Ox3, continued weakness on left side. Pt is up with 1-2 assist, transfers to commode or chair. Pt's brought sneakers in, pt awaiting physical therapy to attempt ambulation. Pt voids on commode, had Xtra large BM on commode this morning. Denies pain. Skin intact, crani dressing on top of head CDI, no s/s infection, no drainage. PLAN MOVING FORWARD: Continue to encourage let arm exercises, motion in left arm improving. Pt eager to get back to my normal state so I can go on vacation this summer. INDIVIDUALIZED FALL PREVENTION: Assistance: OOB with 1-2 assist, transfers to commode of chair. PT/OT ordered. Supervision: Call hinkle in reach. Frequent visual checks. Surveillance: Room near nurses station. CPG GOAL OUTCOME EVALUATION: Continue plan of care. Problem: Skin Integrity Impairment, Risk/Actual (Adult, Obstetrics) Goal: Identify Signs and Symptoms and Related Risk Factors Signs and symptoms and related risk factors are identified upon initiation of Human Response Clinical Practice Guideline (CPG) Outcome: Ongoing (Interventions Implemented as Appropriate) Problem: Health Knowledge, Opportunity for Enhanced (Adult, NICU, [place], Obstetrics, Pediatric) Goal: Identify Signs and Symptoms and Related Risk Factors Signs and symptoms and related risk factors are identified upon initiation of Human Response Clinical Practice Guideline (CPG) Outcome: Ongoing (Interventions Implemented as Appropriate) Problem: Craniotomy/Craniectomy/Cranioplasty (Adult) Goal: Signs and symptoms of listed potential problems will be absent or manageable (reference (Craniotomy/Craniectomy/Cranioplasty (Adult)) CPG) Outcome: Ongoing (Interventions Implemented as Appropriate) * Plan of Care - Abena Berry RN - 01/29/2015 5:12 AM EST Problem: General Plan of Care Goal: Plan of Care Review Outcome: Ongoing (Interventions Implemented as Appropriate) OUTCOME EVALUATION NOTE: OUTCOME SUMMARY: Mirna is a very pleasant gentleman, who has been trying his best to do simple task independently like transferring from bed to BS commode. He was able to sleep good,, denies pain. This morning, he was very happy to notice that he can flex his left arm independently. PLAN MOVING FORWARD: Physical therapy, passive and active exercises, fall precaution INDIVIDUALIZED FALL PREVENTION: Assistance: 2 person assist Supervision: hands on Surveillance: Masimo, Neuro check, Telemetry CPG GOAL OUTCOME EVALUATION: 01/28/15 1521 01/28/151999 Plan of Care Review Plan of Care Outcome Status ongoing (interventions implemented as appropriate) -- Progress improving -- Coping/Psychosocial Response Interventions Plan of Care Reviewed with -- patient Goal: Individualization and Mutuality Outcome: Ongoing (Interventions Implemented as Appropriate) 01/28/15 1243 Mutuality/Individual Preferences What anxieties, fears or concerns do you have about your health or care? n/a What questions do you have about your health or care? n/a What information would help us give you more personalized care? none Goal: Fall Prevention-Safe Patient Handling Outcome: Ongoing (Interventions Implemented as Appropriate) 01/28/15 1521 01/28/151999 Safety Interventions Safety Precautions/Fall Reduction -- room near unit station Musculoskeletal Interventions Activity/Level of Assistance -- up ad xochilt;bedrest with bathroom privileges;bed rest Positioning -- HOB up 30-45 degrees Muscle Strengthening activity/mobility promoted;mobility in bed promoted;sitting on edge of bed encouraged -- Self-Care Promotion adaptive equipment provided;assistance provided to decrease frustration;bathingassistance provided;grooming assistance provided;feeding assistance provided;dressing assistance provided;hygiene assistance provided;independence encouraged while providing assistance;instruction insafe use of adaptive equipment provided -- Activity and Safety Assistive Device Four wheel walker -- Dunn Fall Risk History of Falling -- 0 Secondary Diagnosis -- 15 Ambulatory Aids -- 15 Intravenous Therapy/Heparin/Saline Lock -- 20 Gait/Transferring -- 10 Mental Status -- 0 Score -- 60 OTHER Dunn Fall Risk -- High Goal: Infection Control Outcome: Ongoing (Interventions Implemented as Appropriate) 01/28/151999 Coping/Psychosocial Response Interventions Counseling calming techniques promoted Safety Interventions Isolation Precautions standard precautions maintained Infection Prevention environmental surveillance Goal: Discharge Needs Assessment Outcome: Ongoing (Interventions Implemented as Appropriate) 01/28/15 1521 Discharge Needs Assessment Concerns to be Addressed denies needs/concerns at this time Readmission Within the Last 30 Days no previous admission in last 30 days Discharge Facility/Level of Care Needs rehabilitation facility Current Health Outpatient/Agency/Support Group Needs inpatient rehabilitation facility Anticipated Changes Related to Illness none Self-Care Equipment Currently Used at Home none Living Environment Transportation Available family or friend will provide Problem: Skin Integrity Impairment, Risk/Actual (Adult, Obstetrics) Goal: Identify Signs and Symptoms and Related Risk Factors Signs and symptoms and related risk factors are identified upon initiation of Human Response Clinical Practice Guideline (CPG) Outcome: Ongoing (Interventions Implemented as Appropriate) 01/28/15 1521 Skin Integrity Impairment, Risk/Actual Treatment Related Related Risk Factors (Skin Integrity Impairment, Risk/Actual) medication;invasivecatheters Goal: Skin Integrity/Wound Healing Patient will demonstrate the desired outcomes. Outcome: Ongoing (Interventions Implemented as Appropriate) 01/28/15 1521 Skin Integrity Impairment, Risk/Actual (Adult, Obstetrics) Skin Integrity/Wound Healing making progress toward outcome Problem: Health Knowledge, Opportunity for Enhanced (Adult, NICU, , Obstetrics, Pediatric) Goal: Identify Signs and Symptoms and Related Risk Factors Signs and symptoms and related risk factors are identified upon initiation of Human Response Clinical Practice Guideline (CPG) Outcome: Ongoing (Interventions Implemented as Appropriate) Problem: Craniotomy/Craniectomy/Cranioplasty (Adult) Goal: Signs and symptoms of listed potential problems will be absent or manageable (reference (Craniotomy/Craniectomy/Cranioplasty (Adult)) CPG) Outcome: Ongoing (Interventions Implemented as Appropriate) 01/28/15 1521 Craniotomy/Craniectomy/Cranioplasty Problems Assessed (Craniotomy/Craniectomy/Cranioplasty) all Problems Present (Craniotomy/Craniectomy/Cranioplasty) acute neurologic deterioration * Initial Assessments - Diane Barcenas OT - 01/28/2015 5:04 PM EST Occupational Therapy Evaluation Patient profile: Mirna Milton is a 69 y.o. male patient of Dr. Santiago, Jose Torres MD, admitted on 01/27/2015 from OSH for evaluation of brain mass. Pt s/p stereotactic biopsy. PMH: Per H&P 01/27: His past medical history is notable for hypertension and hyperlipidemia. Six years ago he had dyspnea w/ exertion related to CAD and has five coronary stents placed. No current cardiac symptoms. No other pulmonary disease, renal or hepatic dysfunction, endocrine dysfunction, bleeding disorders, or seizure or stroke. No other surgeries. Medications reviewed. He has facial swelling with penicillin.Remote tobacco use. 2 shots of whiskey per night. No other Rx use including IVDU. Social History: Patient lives with his . 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. 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 2 steps in, no railing. Regular height toilet with grabbar, tub/shower. Hardwood floors throughout. DME: shower chair Baseline ADL/Mobility: Independent with ADL???s and IADL???s Code Status: Full Code Precautions: RUE PICC, fall, L side weakness, L AFO Subjective: I will work at this Objective: Seen today for OT evaluation. Seen in collaboration with PT. Pt seen in 2 sessions today, briefly this morning prior to going for PICC, then again this afternoon. Cognitive Status/Behavior: alert, oriented to person, place, and time Communication: No deficits Vision & Perception: functional with glasses. No change in vision Range of motion, strength, coordination: Hand dominance: right R UE within functional limitations LUE full strong grasp, full range of elbow flexion/extension. Unable to lift LUE against gravity past 30 degrees, able to demonstrate self range of motion exercises using RUE as assist. Per PT, L hip and foot weakest, left knee strong. Sensation: functional Activities of Daily Living: Self-feeding: independent Hygiene grooming: set up Upper and lower body dressing and bathing: ?? anticipate assist due to decreased strength of LUE and LLE ?? Donned sarahye sitting with assist to thread LUE into sleeve Toileting: Commode Transfer: assist x2 to stand Toilet Hygiene: independent Functional Mobility: Supine to sit: contact guard Sit to stand: mod assist x2 Ambulation: first time mod assist hand held on right, PT blocking knee on left, 12 feet to stretcher. Afternoon session, 40 feet with walker, gait belt, step by step cueing for LLE, mod assist. Stand to sit: contact guard with cues for technique Sit to supine: contact guard to stretcher Balance: fair sitting balance,did not test outside base of support. Standing fair with walker IADL???s: Assistance available to patient. Endurance: Information taken from last recorded vitals in flowsheet. Last value Range last 8 hrs Heart Rate Heart Rate: 68 Heart Rate: [68-82] Blood Pressure BP: 150/73 mmHg BP: (150-161)/(73-80) SpO2 SpO2: 96 % SpO2: [96 %-98 %] Pain: none Informed Consent: The patient agrees to and understands the OT treatment plan and goals. Education: patient educated on Role of occupational therapy/rehabilitation, Transfers, Assistive device/technique, ADL, Exercise, Positioning, Safety, Functional Mobility, Activity pacing/Energy conservation, Balance and Recommendations and verbalizes and demonstrates understanding. Patient status, treatment, and mobility recommendations discussed with nursing. Assessment: Pt has been seen by OT for evaluation, and he presents with impaired ability to perform daily activities and functional mobility secondary to L side weakness, decreased functional transfers and mobility, decreased standing balance, risk to fall. Pt tolerated well, very motivated and cooperative. Reports use of LUE varies from day to day, yesterday unable to use hand. Has good awareness of placement of LUE, strong functional grasp. Unable to shrug L shoulder, no subluxation noted. PT recommends use of L AFO for foot drop, pt will ask to bring shoes tomorrow. Pt would benefit from ongoing OT services to maximize functional independence. Recommendations: Equipment needs at discharge: to be determined Discharge Recommendations: would benefit from structured rehab to maximize functional capabilities Other Recommendations: none Goals: To be achieved by 02/04/15: 1. Pt will be supervision LE ADLs using one handed techniques. 2. Pt will be contact guard sit to stand functional transfers from bed, cc, toilet. 3. Pt will be set up for ADLs. 4. Pt will be modified independent self range of motion exercises LUE. 5. Pt will be close supervision with functional mobility with walker in the room for ADLs. 6. Pt will stand for 30 seconds with close supervision to enhance ADLs, unilateral UE support. Plan: Pt to be seen 3-5 x per week for therapy including Transfers, Assistive device/technique, ADL, Positioning, Safety, Functional Mobility, Activity pacing/Energy conservation, Balance, Recommendations and Discharge planning Eval Date: 01/28/2015 Total time spent with patient: 60 minutes. Total timed interventions: 15 minutes functional there ex Pager: [phone] Diane Barcenas OT 01/28/2015 Occupational Therapy Rehabilitation Department * Consult Note - Iraj Hernandez MD - 01/28/2015 3:35 PM EST Patient Name: Mirna Milton Patient Age: 69 y.o. Birthdate: 1945 Admit date: 01/27/2015 Attending Physician: Jose Santiago MD INFECTIOUS DISEASE FELLOW INPATIENT CONSULT NOTE Reason for Consult: We are seeing Mirna Milton at the request of Dr Santiago for the evaluation of Brain abscess Admission date: 01/27/2015 HPI: Mirna Milton is a 69 y.o. male with pmhx of HTN,HLD,CAD p/w left sided weakness and incoordination to OSH s/p CT head- suggestive of ischemic infract.patient was given plavix and aspirin.Weakness worsened next day which prompted MRI of brain revealing right frontal lesion ?metastasis so patient was transferred to [facility] for further care. At [facility] patient was evaluated by neurosurgery and review of MRI with radiology likely an abscess s/p OR with stereotactic biopsy on 01/27/15 with serosanguinous fluid aspiration.Started on iv vancomycin and metronidazole.cultures yielded group A alpha hemolytic strep. Of note patient was complaining of pain in the left lower tooth which resolved spontaneously after flossing. ROS: General: denies fever, chills, sweats, change in weight, rash or itching HEENT: denies headache, change in vision or hearing, tinnitus, epistaxis, sore throat CVS: denies chest pain, palpitations, pedal edema, orthopnea Pulm: denies shortness of breath, LESTER, wheezes, cough GI: denies abdominal pain, nausea/vomiting, constipation, diarrhea, anorexia : denies hematuria, dysuria, frequency, nocturia MS: denies arthralgias, myalgias Neuro: +left sided weakness in upper and lower ext Psych: denies mood disorder, sleep disturbance PMH HTN HLD CAD Allergies Penicillins- facial swelling last received in 1950's Pertinent Medications: IV vancomycin metronidazole SoHx: EX smoker and ETOH use No recent travel, no drugs,No pets Lived in [place] all his life,no travel in the past 2 years Eats wild game meat(deer,bear,fish) Water source is a well Family History Not contributory to current condition Physical Exam (24 hrs): Temp: [35.9 ??C (96.6 ??F)-36.9 ??C (98.4 ??F)] Heart Rate: [53-92] BP: (104-161)/(54-87) Resp: [15-19] SpO2: [94 %-100 %] Gen: Not in distress HEENT: PERRLA. Biopsy site covered with bandage Pulm: CTAB. Nl effort. Cardio: RRR, no M/G/R. GI: Abd S/ND/NT w/o rebound or guarding. Neuro: left upper ext 4/5,LE 4/5 reflexes wnl Skin: No rashes. Labs Lab Results Component Value Date WBC 14.0* 01/28/2015 RBC 4.28* 01/28/2015 HGB 13.8 01/28/2015 HCT 40.2 01/28/2015 MCV 93.9* 01/28/2015 MCH 32.2 01/28/2015 MCHC 34.3 01/28/2015 PLATELET 261 01/28/2015 RDWCV 12.6 01/28/2015 Lab Results Component Value Date NA 139 01/28/2015 K 4.5 01/28/2015 CL 101 01/28/2015 CO2 24 01/28/2015 Lab Results Component Value Date BUN 21* 01/28/2015 CREATININE 0.86 01/28/2015 Lab Results Component Value Date ALT 22 01/27/2015 AST 19 01/27/2015 ALKPHOS 70 01/27/2015 BILITOT 1.0 01/27/2015 Micro: Brain abscess vs tumor cx: 01/27/15 Alpha Hemolytic Streptococci Imaging: CT chest/abd/pelvis(OSH) Nonspecific, mildly enlarged mediastinal lymph nodes, as described. Abdomen and pelvis unremarkable, aside from enlargement of the prostate gland. MRI OSH 1. Posterior right frontal rim-enhancing lesion. Imaging characteristics are strongly suggestive of abscess. Metastatic neoplasm or primary glial neoplasm are considered to be less likely. 2. Minimal flow in the cervical right vertebral artery, which may be severely stenotic or occluded. There appears to be retrograde flow from the basilar confluence to the right PICA origin. Impression: Mirna Milton is a 69 y.o. male with htn,hld,cad p/w left sided weakness to OSH Ct imaging suggestive of ischemic infract and started on plavix+aspirin weakness worsened which prompted MRI revealingrigh frontal lesion suspicious for metastasis so was transferred to [facility] for definitive management.At [facility] neurosurgery eval s/p OR with stereotactic biopsy of brain on 01/27,cultures yielded alpha hemolytic group A strep.It is not possible to pinpoint the source as this could be oral or abdominal.We would recommend to start meropenem and stop metronidazole while continuing vancomycin.Once sensitivities are available would deescalate antibiotics. Recommendation: Continue iv vancomycin at current dosing Please check vancomycin trough before 4th doses Stop metronidazole Start meropenem 2 gm every 8 hrs F/u identification of Grp A strep TTE at some point Duration of therapy to follow Patient would need OPAT ID service will continue to follow the patient,please page [phone] with questions Above recommendations were communicated with the primary team x Recommendations discussed with primary team. Consult service will continue to follow patient. Recommendations discussed with primary team. ID will sign off. Please page [phone] if further consultation required. Case discussed with ID attending Dr.Zuckerman Gaudencio Mata MD, Fellow, Infectious Disease Pager [phone] Attending Addendum: I have seen and examined the patient, reviewed the data and agree with the note by Dr. Mata. Source not clear, no murmur or prodrome to suggest endocarditis as a source, but he should have an echo as we have no potential source. Hope to stop vanco soon. He should tolerate the meropenem. Personally reviewed images and discussed with team. * Plan of Care - Sveta Westbrook RN - 01/28/2015 3:30 PM EST Problem: General Plan of Care Goal: Plan of Care Review Outcome: Ongoing (Interventions Implemented as Appropriate) 01/28/15 1521 Plan of Care Review Plan of Care Outcome Status ongoing (interventions implemented as appropriate) Progress improving Coping/Psychosocial Response Interventions Plan of Care Reviewed with patient;spouse OUTCOME EVALUATION NOTE: OUTCOME SUMMARY: Pt s/p nilo holes for brain abscess. Neuro Aaox4, PERRLA, follows commands, L sided weakness present. VSS. Crani incision intact, small amount of dried drainage. PICC placed today. Denies pain. PT/OTordered. Pt OOB to chair w/ one person assist. OOB w/ walker and 2 person assist. PLAN MOVING FORWARD: Continue to monitor neuro status and mobilize. INDIVIDUALIZED FALL PREVENTION: Assistance: One person to commode, walk with 2 assist and walker Supervision: bed alarm Surveillance: Hourly rounding CPG GOAL OUTCOME EVALUATION: Goal: Individualization and Mutuality Outcome: Ongoing (Interventions Implemented as Appropriate) Goal: Fall Prevention-Safe Patient Handling Outcome: Ongoing (Interventions Implemented as Appropriate) 01/28/15 152 Safety Interventions Safety Precautions/Fall Reduction assistive device;bed alarm;lighting adjusted for task/safety;muscle strengthening facilitated;mobility aid;nonskid shoes/slippers when out of bed;room near unit station Musculoskeletal Interventions Activity/Level of Assistance up ad xochilt Positioning HOB up 30-45 degrees Muscle Strengthening activity/mobility promoted;mobility in bed promoted;sitting on edge of bed encouraged Self-Care Promotion adaptive equipment provided;assistance provided to decrease frustration;bathingassistance provided;grooming assistance provided;feeding assistance provided;dressing assistance provided;hygiene assistance provided;independence encouraged while providing assistance;instruction insafe use of adaptive equipment provided Activity and Safety Assistive Device Four wheel walker Dunn Fall Risk History of Falling 0 Secondary Diagnosis 15 Ambulatory Aids 15 Intravenous Therapy/Heparin/Saline Lock 20 Gait/Transferring 20 Mental Status 0 Score 70 OTHER Dunn Fall Risk High Goal: Infection Control Outcome: Ongoing (Interventions Implemented as Appropriate) 01/28/15 152 Coping/Psychosocial Response Interventions Counseling reassurance provided;verbalization of feelings encouraged Safety Interventions Isolation Precautions standard precautions maintained Infection Prevention environmental surveillance;hydration promoted;nutrition promoted;rest/sleep promoted Goal: Discharge Needs Assessment Outcome: Ongoing (Interventions Implemented as Appropriate) 01/28/151520 Discharge Needs Assessment Concerns to be Addressed denies needs/concerns at this time Readmission Within the Last 30 Days no previous admission in last 30 days Discharge Facility/Level of Care Needs rehabilitation facility Current Health Outpatient/Agency/Support Group Needs inpatient rehabilitation facility Anticipated Changes Related to Illness none Self-Care Equipment Currently Used at Home none Living Environment Transportation Available family or friend will provide Problem: Skin Integrity Impairment, Risk/Actual (Adult, Obstetrics) Goal: Identify Signs and Symptoms and Related Risk Factors Signs and symptoms and related risk factors are identified upon initiation of Human Response Clinical Practice Guideline (CPG) Outcome: Ongoing (Interventions Implemented as Appropriate) 01/28/151520 Skin Integrity Impairment, Risk/Actual Treatment Related Related Risk Factors (Skin Integrity Impairment, Risk/Actual) medication;invasivecatheters Goal: Skin Integrity/Wound Healing Patient will demonstrate the desired outcomes. Outcome: Ongoing (Interventions Implemented as Appropriate) 01/28/151520 Skin Integrity Impairment, Risk/Actual (Adult, Obstetrics) Skin Integrity/Wound Healing making progress toward outcome Problem: Health Knowledge, Opportunity for Enhanced (Adult, NICU, [place], Obstetrics, Pediatric) Goal: Identify Signs and Symptoms and Related Risk Factors Signs and symptoms and related risk factors are identified upon initiation of Human Response Clinical Practice Guideline (CPG) Outcome: Ongoing (Interventions Implemented as Appropriate) Problem: Craniotomy/Craniectomy/Cranioplasty (Adult) Goal: Signs and symptoms of listed potential problems will be absent or manageable (reference (Craniotomy/Craniectomy/Cranioplasty (Adult)) CPG) Outcome: Ongoing (Interventions Implemented as Appropriate) 01/28/15 1521 Craniotomy/Craniectomy/Cranioplasty Problems Assessed (Craniotomy/Craniectomy/Cranioplasty) all Problems Present (Craniotomy/Craniectomy/Cranioplasty) acute neurologic deterioration * Initial Assessments - Juaquin Solano, PT - 01/28/2015 11:21 AM EST Physical Therapy Neuro Evaluation I Patient profile (per OT note): Mirna Milton is a 69 y.o. male patient of Jose Degroot MD, admitted on 01/27/2015 from OSH for evaluation of brain mass. Pt s/p stereotactic biopsy. PMH: Per H&P 01/27: His past medical history is notable for hypertension and hyperlipidemia. Six years ago he had dyspnea w/ exertion related to CAD and has five coronary stents placed. No current cardiac symptoms. No other pulmonary disease, renal or hepatic dysfunction, endocrine dysfunction, bleeding disorders, or seizure or stroke. No other surgeries. Medications reviewed. He has facial swelling with penicillin.Remote tobacco use. 2 shots of whiskey per night. No other Rx use including IVDU. Social History: Patient lives with his . 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 2 steps in, no railing. Regular height toilet with grabbar, tub/shower. Hardwood floors throughout. DME: shower chair Baseline ADL/Mobility: Independent with ADL???s and IADL???s Precautions/Special Considerations: left sided paresis, able to take weight through the leg, but partially shaheed with weight bearing and manually needs blocking; left foot drop Staff Communication/Mobility Recommendations: save most of walking with PT, but pivot to right side, block left knee prn, move left leg as able/left foot drop S: Pt ready for PT/OT today. Pleasant and willing to work. O: Pt seen for initial evaluation - co rx with OT (two sessions) Vitals: Last value Range last 8 hrs Temperature Temp: 36.3 ??C (97.3 ??F) Temp: [35.9 ??C (96.6 ??F)-36.3 ??C (97.3 ??F)] Heart Rate Heart Rate: 82 Heart Rate: [53-82] Blood Pressure BP: 154/77 mmHg BP: (104-154)/(54-77) Respiratory Rate Resp: 16 Resp: [16] SpO2 SpO2: 97 % SpO2: [94 %-97 %] Communication: wnl Mental Status/Behavior: wnl Pain: not reported Sensation: n/a Vision/Perception: see OT note Skin/Soft Tissue: n/e ROM: Full ROM through all extremities except tight heelcord on left Neuromuscular: R side WNL, L UE - see OT note - 2+/5 shoulder flexion, 1/5 upper trap; LEFT LE: hipflexion 2+/5, quad 4/5, df 1/5, 0/5 EHL, 1/5 pf = foot drop Bed Mobility: supine to sit with head of bed up with moderate assist of one Balance: Sitting balance: good, help to reposition arm Standing balance: fair with 1-2 assist Dynamic/gait balance: fair with 1-2 assist Transfers: min to mod assist of 2 to walker W/C Mobility: not appropriate today Gait: no shoes today, so unable to wear left AFO - I left in the room for his to bring up shoes; ambulated twice today at two different times - two assist with OT on right, myself on left with walker and helping with advancing L LE with correct step length, cues to lock knee in extension and push walker forward; his elbow and heavy media operator are strong, but shoulder is weak. He is able to walk with a walker, but needs an AFO and if he does not pay attention and lock his knee in extension it will buckle when he weight bears, so it must be blocked in stance phase of gait; able to walk 25' x 1 and 10'x 1 Informed Consent: The pt understands and agrees to the PT treatment plan and goals. Education: The pt been educated on Bed mobility, Transfers, Assistive device/technique, Exercise, Positioning, Safety , Precautions/protocol, Equipment use, Gait , Activity pacing/Energy conservation, Home program, Role of therapy, Balance and Discharge planning and verbalizes and demonstrates under standing Assessment: Pt is a pleasant 69 yo male with above dx and presents with left hemiparesis with foot drop, weak quads and weak shoulder but still able to use a walker. He did well with walking today with two assist and help with L LE advancement. Recommend tomorrow's PT wait until his shoes are here to don the AFO I left in the room. He will need two assist/chair follow. He appears to think going right home would be the best option based on what type of rehab he will get, but would be a good candidate for acute rehab. Pt will benefit from ongoing therapeutic interventions as outlined below to achieve the following goals Goals: Pt will achieve the following by 72 hours 1. Demonstrate knowledge of safety limitations and precautions and will appropriately request assistance for functional activities and to mobilize. 2. Demonstrate understanding and carry over of appropriate exercises. 3. Perform bed mobility with min assist 4. Demonstrate midline sitting balance with indep 5. Perform sit <> stand transfer with min assist 6. Ambulate 75 feet with mod assist of one Plan: Pt to be seen 5-6 per week for therapy including Bed mobility, Transfers, Positioning, Safety , Precautions/protocol, Gait , Activity pacing/Energy conservation, Role of therapy, Balance and Discharge planning and pt /family/caregiver education. Equipment needs: tbd Discharge Recommendations: Patient will require 24/7 supervision and assistance. Patient would benefit and tolerate continued daily intensive therapy interventions to maximize functional independence. No other consults recommended at this time Total time spent with patient: 70 minutes Total timed interventions: 10 minutes Pager: [phone] Juaquin Solano, PT 01/28/2015 Physical Therapy Rehabilitation Department * Plan of Care - Stiven Poe LPN - 01/28/2015 10:09 AM EST Problem: Health Knowledge, Opportunity for Enhanced (Adult, NICU, , Obstetrics, Pediatric) Goal: Knowledgeable about Health Subject/Topic Patient will demonstrate the desired outcomes. Outcome: Outcome (s) achieved Date Met: 01/28/15 Peripherally Inserted Central Catheter (PICC) Teaching Sheet Peripherally inserted central catheters (kbyx-ws-umnt) (PICC) are used when you need IV (intravenous) medicines and fluids. A catheter is a small flexible plastic tube. The catheter is put in througha vein under your skin. A vein is a tube inside your body that carries blood from the body to the heart. The catheter is usually put into a vein on the inside of your upper arm. Then it is threaded up this vein and ends in the blood vessel near your heart. The PICC catheter may be used for taking blood for laboratory tests. You may also get IV fluids andmedicines quickly and easily. Having the catheter may keep your arm from being stuck many times with a needle. The catheter will have 1-3 small tails (tubes) coming from your arm where the catheter was put in. Why do I need a PICC line or midline catheter? PICC lines are used for terminal computer operator treatments. PICC lines may be used for up to a year. They areoften put in to give you IV medicines at home. You may need a PICC catheter because caregivers cannot use smaller veins in your body. Smaller veins may be damaged, or they may have poor blood flow. ??? Catheters are also used in case of emergency when you would need medicines or fluids very quickly. ??? The following are medicines and treatments you may get when you have a PICC line. ? Antibiotics. These are medicines to prevent infection. ? Frequent blood sample collection. ? IV medicines that would make your smaller veins sore or damaged. ? Receiving IV fluids for a long period of time. ? Pain medicine. ? Total Parenteral Nutrition: This is also called TPN. TPN is a special liquid food that goes directly into your veins. ? Blood ? Chemotherapy (Medicine for cancer) What are the benefits of having a PICC line put in? Having a PICC line may keep your arm from being stuck many times with a needle to draw blood orstart an IV (intravenous catheter) . ??? Through a PICC catheter, you may have blood taken for tests. You may also get IV fluids and medicines quickly and easily. ??? Small veins can be damaged or irritated by certain drugs or nutritional solutions. A PICC line helps to decrease vein irritation from antibiotics, IV pain drugs, or IV cancer drugs. ??? A PICC line can be left in place when you go home. If you go home with a PICC line in place, home care can be set up via the nurse Academic Manager to help you. What are possible complications of having a PICC line put in? Some possible complications are: ??? bruising, swelling, or infection in the arm with the PICC line ??? mal-positioned catheter (catheter tip in wrong place) ??? occlusion (blocked catheter) ??? mechanical phlebitis (vein irritation) and thrombosis (clot) Your doctor is the person you should talk to if you have questions about what would happen if you do not choose to have a PICC line put in. Your doctor can talk to you about other choices you may have. What should I expect when it is put in? A written consent that gives your ok to have it put in needs to be signed after you understand thatyou are going to have a PICC put in, and all your questions about the procedure have been answered to your satisfaction. This is a safety feature that the hospital practices before doing procedures. An experienced nurse who has been through special training and education will be putting this catheter in. The procedure is done in a specially equipped room in Interventional Radiology on the third floor. The PICC nurse will first talk to you about any questions that you may have. The PICC nurse will explain to you what is going to be done before starting. Once you arrive in the procedure room in Interventional Radiology, the PICC nurse will then set up for the procedure. She will unwrap the sterile kit and open the needed supplies. A gown and mask andgloves will be worn while putting it in. An ultrasound machine will be used to help guide the catheter in the right place. This machine uses a handle with sound waves to find the vein. The area on your arm where the catheter will be put in is then numbed with a medicine put under your skin with a tiny needle. The nurse will then put in the catheter using fluoroscopy (a type of x-ray) as a guide. Once the catheter is in your vein, it will be threaded up your arm to the area beforeyour heart. While it is being threaded, you may be asked to turn your head. When the catheter is in, the nurse will place a small dressing on the site along with a little morton which will help keep the catheter in place. After the procedure is done, a radiologist (doctor in x-ray department) will look at your x-ray to make sure that the end of the catheter is in proper position to give your fluids and/or medications. What should I expect in the care of my PICC? A dressing that is specially made to prevent infections will be put on. After this, the dressing will only be changed once a week unless it needs it sooner. If you go home with the catheter in, you may take a shower as long as you keep the site dry. You can do this by wearing a specially fitted PICC protector that will be provided to you before dischargefrom the hospital. The dressing at the site must be kept clean and dry. It is important that you watch for signs of infection at the site. Your healthcare provider should be notified if these occur: ??? Redness ??? Swelling ??? Pus ??? Pain at the site Other reasons to notify your healthcare provider are: ??? Catheter becomes partially or totally removed ??? Unable to infuse medication/fluid ??? Unable to draw back blood from the catheter. This may be an early sign that a clot is forming on the end of the catheter. If this occurs, a medicine called Cathflo may be used to dissolve this clot. Ask the PICC nurse or your doctor, any questions you may have so you feel secure in consenting to having a PICC line. References: Vascular Access Device Selection, Insertion, and Management, [employer] 09/04. A Review of the Efficacy, Safety, Use, and Administration of Cathflo, [employer] 2005 * Plan of Care - Shaila Guy RN - 01/28/2015 6:36 AM EST Problem: General Plan of Care Goal: Plan of Care Review Outcome: Ongoing (Interventions Implemented as Appropriate) 01/28/15 0620 Plan of Care Review Plan of Care Outcome Status ongoing (interventions implemented as appropriate) Progress no change Coping/Psychosocial Response Interventions Plan of Care Reviewed with patient OUTCOME EVALUATION NOTE: OUTCOME SUMMARY: Pt is AAOx4, following commands approprately and able to make needs known. Pupils equal, brisk and reactive. LIRA, strengths remain unequal with LLE and LUE weaker than the right. Denies pain, SUE or N/V. Biopsy site dressing intact with small amount marked drainage. Up to bathroom and commode with 2 person max assist, pt unable to lift L leg when ambulating and remains a heavy transfer at this point. Encouraged to ring for assistance with OOB transfers. Safety measures maintained. Will continue to monitor. PLAN MOVING FORWARD: Continue neuro checks and VS monitoring, IV antibiotics as ordered INDIVIDUALIZED FALL PREVENTION: Assistance: 2 person max assist w/ FWW Supervision: Hourly rounding, visual checks Surveillance: Continuous pulse oximetry CPG GOAL OUTCOME EVALUATION: Goal: Fall Prevention-Safe Patient Handling Outcome: Ongoing (Interventions Implemented as Appropriate) 01/27/151999 Dunn Fall Risk History of Falling 0 Secondary Diagnosis 15 Ambulatory Aids 15 Intravenous Therapy/Heparin/Saline Lock 20 Gait/Transferring 10 Mental Status 15 Score 75 Activity and Safety Assistive Device Front wheel walker OTHER Dunn Fall Risk High Safety Interventions Safety Precautions/Fall Reduction fall reduction program maintained;room near unit station;nonskid shoes/slippers when out of bed;lighting adjusted for task/safety;seizure precautions;bed alarm;commode/urinal/bedpan at bedside;environmental modification Musculoskeletal Interventions Activity/Level of Assistance up in room;with 2-person assist;with walker Positioning HOB up 30 degrees;independent * Brief Op Note - Jose Santiago MD - 01/27/2015 5:39 PM EST Brief Operative Note Patient Name: Mirna Milton : [id number] MR#: [id number] Case Date: 01/27/2015 Surgeon: Surgeon(s) and Role: * Jose Santiago MD - Primary * Jeffery Kahn MD - Resident-Surgeon Dinh * Dustin Parker MD - Resident-Surgeon Chief Preoperative diagnosis: ABSCESS Postoperative diagnosis: ABSCESS Procedure(s): @STEREOTACTIC BX,ASP, OR EXC.-INTRACRANIAL LESION, W/SCAN STEREOTACTIC COMPUTER-ASSTD NAVIGATIONAL CRANIAL INTRADURAL Anesthesia: General Fluids: 500cc crystalloid 400cc plateletts Estimated Blood Loss: 5 mL Attestation: Case Date: 01/27/2015 I was present and I participated during the entire procedure (does not need to include opening and closing). (Please see the Surgical Encounter Summary for any Implant and Specimen details pertinent to this patient.) * ED Triage - Katharine Everett RN - 01/27/2015 2:50 PM EST Pt presents to the ED AAOX3 from OSH c/o progressive left sided weakness and tingling. MRI from OShshowed possible abscess. Pt denies lightheadedness, dizziness, headache, SOB, chest pain, fever, orfatigue. PERRL at 4 mm bilaterally. Right sided muscle strength 5/5, left sided muscle strength 3/5. CSM intact bilaterally in upper and lower extremities. Respirations even and unlabored. Skin is pink warm and dry. Neurosurg at bedside documented in this encounter Plan of Treatment Upcoming Encounters Date Type Department Care Team (Late st Contact Info) Description 09/08/2024 9:40 AM EDT Office Visit Cardiology at [address] [phone] Gonzales Torres MD [facility] [place] [address] Scheduled Orders Name Type Priority Associated Diagnoses Orde r Schedule Place PICC Line: Contact Vascular Access Page [phone] Procedures Routine One Time for 1 Occurrences starting 01/27/2015 until 01/27/2015 Scheduled Referrals Name Type Priority Associated Diagnoses Order Schedule OPAT: Order / Recommendation for Post Discharge IV Antibiotic Management Outpatient Referral Routine Brain abscess Ordered: 01/31/2015 documented as of this encounter Procedures Procedure Name Priority Date/Time Associated Diagnosis Comments ECG SCAN 02/01/2015 12:00 AM EST POCT GLUCOSE Routine 01/31/2015 11:40 AM EST ECHOCARDIOGRAM TRANSTHORACIC Routine 01/31/2015 11:36 AM EST Brain abscess POCT GLUCOSE Routine 01/31/2015 7:04 AM EST HEMOGRAM Routine 01/31/2015 6:02 AM EST DIFFERENTIAL, AUTOMATED Routine 02/01/20 15 6:02 AM EST CBC (WITH DIFF) Routine 01/31/2015 6:02 AM EST BASIC METABOLIC PANEL Routine 01/31/2015 6:02 AM EST POCT GLUCOSE Routine 01/30/2015 4:23 PM EST POCT GLUCOSE Routine 01/30/2015 11:53 AM EST SCAN, PERIPHERAL BLOOD Routine 5 10:08 AM EST HEMOGRAM Routine 01/30/2015 10:08 AM EST DIFFERENTIAL, AUTOMATED Routine 01/31/20 15 10:08 AM EST CBC (WITH DIFF) Routine 01/30/2015 10:08 AM EST BASIC METABOLIC PANEL Routine 01/30/2015 10:00 AM EST POCT GLUCOSE Routine 01/30/2015 8:09 AM EST POCT GLUCOSE Routine 01/30/2015 8:07 AM EST POCT GLUCOSE Routine 01/29/2015 8:37 PM EST VANCOMYCIN, TROUGH Timed 01/29/2015 4: 15 PM EST POCT GLUCOSE Routine 01/29/2015 3:59 PM EST POCT GLUCOSE Routine 01/29/2015 11:33 AM EST POCT GLUCOSE Routine 01/29/2015 7:16 AM EST HEMOGRAM Routine 01/29/2015 5:34 AM EST DIFFERENTIAL, AUTOMATED Routine 01/30/20 15 5:34 AM EST CBC (WITH DIFF) Routine 01/29/2015 5:34 AM EST BASIC METABOLIC PANEL Routine 01/29/2015 5:34 AM EST POCT GLUCOSE Routine 01/28/2015 4:41 PM EST POCT GLUCOSE Routine 01/28/2015 12:29 PM EST XR PICC PLACEMENT OVER 5 YEARS (IV TEAM) Routine 01/28/2015 11:53 AM EST POCT GLUCOSE Routine 01/28/2015 8:00 AM EST HEMOGRAM Routine 01/28/2015 2:46 AM EST DIFFERENTIAL, AUTOMATED Routine 01/28/20 15 2:46 AM EST CBC (WITH DIFF) Routine 01/28/2015 2:46 AM EST BASIC METABOLIC PANEL Routine 01/28/2015 2:46 AM EST POCT GLUCOSE Routine 01/27/2015 8:44 PM EST PATHOLOGY ADDENDUM REPORT Routine 01/27/2015 5:35 PM EST SURGICAL PATHOLOGY REPORT Routine 01/27/2015 5:35 PM EST SPECIMEN TO PATHOLOGY Routine 01/27/2015 5:35 PM EST SPECIMEN TO PATHOLOGY Routine 01/27/2015 5:35 PM EST SPECIMEN TO PATHOLOGY Routine 01/27/2015 5:35 PM EST SPECIMEN TO PATHOLOGY Routine 01/27/2015 5:35 PM EST SPECIMEN TO PATHOLOGY Routine 01/27/2015 5:35 PM EST ANAEROBIC CULTURE STAT 01/27/2015 5:2 5 PM EST TISSUE CULTURE, AEROBIC & ANAEROBIC STAT 01/27/2015 5:25 PM EST TISSUE CULTURE STAT 01/27/2015 5:25 PM EST ANAEROBIC CULTURE Routine 01/27/2015 5:1 8 PM EST ANAEROBIC CULTURE Routine 01/27/2015 5:1 8 PM EST TISSUE CULTURE, AEROBIC & ANAEROBIC Routine 01/27/2015 5:18 PM EST TISSUE CULTURE, AEROBIC & ANAEROBIC Routine 01/27/2015 5:18 PM EST TISSUE CULTURE Routine 01/27/2015 5:18 PM EST TISSUE CULTURE Routine 01/27/2015 5:18 PM EST STEREOTACTIC COMPUTER-ASSTD NAVIGATIONAL CRANIAL INTRADURAL (WRVU 3.75) 01/27/2015 4:27 PM EST ABSCESS @STEREOTACTIC BX,ASP, OR EXC.-INTRACRANIAL LESION, W/SCAN (WRVU 18.79) 01/27/2015 4:27 PM EST ABSCESS MRI BRAIN WITH CONTRAST STAT 01/27/20 15 3:56 PM EST URINALYSIS WITH REFLEX CULTURE Routine 01/27/2015 3:23 PM EST URINE CULTURE Routine 01/27/2015 3:22 PM EST PREPARE PLATELETS, APHERESIS STAT 01/27/2015 2:50 PM EST STEREOTACTIC COMPUTER-ASSTD NAVIGATIONAL CRANIAL INTRADURAL Routine 01/27/2015 2:46 PM EST STEREOTACTIC BX,ASP,OR EXC.-INTRACRANIAL LESION, W/SCAN Routine 01/27/2015 2:46 PM EST BLOOD CULTURE STAT 01/27/2015 2:45 PM EST SCANLON TUBE HOLD STAT 01/27/2015 2:40 PM EST HEMOGRAM STAT 01/27/2015 2:40 PM EST DIFFERENTIAL, AUTOMATED STAT 01/27/20 15 2:40 PM EST ABO/RH TYPING STAT 01/27/2015 2:40 PM EST BLOOD CULTURE STAT 01/27/2015 2:40 PM EST APTT STAT 01/27/2015 2:40 PM EST SEDIMENTATION RATE STAT 01/27/2015 2: 40 PM EST PROTHROMBIN TIME STAT 01/27/2015 2:40 PM EST CBC (WITH DIFF) STAT 01/27/2015 2:40 PM EST ANTIBODY SCREEN STAT 01/27/2015 2:40 PM EST TYPE AND SCREEN ([facility]/CGP/RAFAEL) STAT 01/27/2015 2:40 PM EST CRP, CARDIAC RISK ([facility] CRP) STAT 01/27/2015 2:40 PM EST COMPREHENSIVE METABOLIC PANEL STAT 01/27/2015 2:40 PM EST REQUEST FOR 2ND READ CT CHEST ABDOMEN PELVIS Routine 01/27/2015 1:44 PM EST REQUEST FOR 2ND READ MR HEAD AND SPINE Routine 01/27/2015 1:40 PM EST documented in this encounter Results * SCAN DOC: ECG (02/01/2015 12:00 AM EST) Scanning Provider MEDIA MGR SCAN EXT O RDR/RSLT * POCT Glucose (01/31/2015 11:40 AM EST) [facility] Glucose, POC 106 60 - 199 mg/dL [facility] Comment: Supplemental ranges: <140 mg/dL before meals <180 mg/dL all other times of the day Blood specimen (specimen) 01/31/2015 11:40 AM EST 01/31/2015 11:40 AM EST Jose Santiago MD POINT OF CARE TEST O RDERABLES Performing Organization Address City/State/ZIP Co co Phone Number [facility] * Echocardiogram Transthoracic(Leb) (01/31/2015 11:36 AM EST) EF 70 HEARTLAB SYSTEM Anatomical Region Laterality Modality Other 01/31/2015 Narrative 01/31/2015 12:30 PM EST Amended Report Procedure: ? Transthoracic Echocardiogram Patient: ? YOAN Haines ? (Age): 1945(69) Med Rec#: ?[id number] ? Sex: ?M ? Site Loc: ?[facility] ? Ht / Wt: ??188(cm)/98(kg) Pt. Loc: ? Adult Floor ?BSA: ?2.26 Study Date: ?01/31/2015 ? Pt. Type: Inpatient Tape: ?Epiq1 ? Referring: Jose Santiago Referring: ORLANDO DAMIAN Cytology Technologist: Olga Lidia Cevallos Diagnosis: ??Bacteremia (790.7) CPT Code(s): ??Echo Full (81245), ??Spectral Doppler (72984), ??Color Doppler (52050), Indication(s):Rhythm: Sinus HR ?BP ?148/74 ?? SUMMARY: 1. Left ventricular chamber size, wall thickness, global and segmental systolic function are within normal limits. Ejection fraction is estimated to be 70%. 2. There is mild (1+/4+) mitral regurgitation present. 3. No valvular vegetations noted on average quality TTE. 4. See remainder of report for additional findings. FINDINGS: Left Ventricle ?Left ventricular chamber size, wall thickness, global and segmental systolic function are within normal limits. Ejection fraction is estimated to be 70%. ?There is no evidence of LVOT obstruction. ?No ventricular septal defect is visualized. ?There are no left ventricular segmental wall motion abnormalities. ?Left sided filling pressure could not be assessed by Doppler. Left Atrium ?The left atrium is normal in size.(29 ml/m2). ?No atrial septal defect is visualized. Right Ventricle ?Right ventricular chamber size, wall thickness, and systolic function are within normal limits. ?Pulmonary artery hypertension could not be assessed due to inadequate tricuspid regurgitation jet. Right Atrium ?The right atrium is mildly dilated. Aortic Valve ?The aortic valve is tricuspid. Difficult to rule out functionally bicuspid valve. ?The left coronary cusp of the aortic valve is thickened. ?The non coronary cusp of the aortic valve is thickened. ?Mild aortic leaflet calcification is visualized. ?There is aortic annular calcification. ?There is no evidence of aortic valve stenosis. ?There is a trace of aortic regurgitation present. ?No vegetation is observed on the aortic valve. Mitral Valve ?The mitral valve appears normal in structure and function. ?There is thickening of the anterior mitral valve leaflet. ?There is no evidence of mitral valve leaflet prolapse. ?There is mitral annular calcification. ?There is no evidence of mitral stenosis. ?There is mild (1+/4+) mitral regurgitation present. Tricuspid Valve ?The tricuspid valve appears normal in structure and function. ?There is trace tricuspid regurgitation present. ?No vegetation is observed on the tricuspid valve. Pulmonic Valve ?The pulmonic valve appears normal in structure and function. ?No vegetation is observed on the pulmonic valve. Pericardium ?The pericardium appears normal and there is no evidence of a pericardial effusion. Aorta ?The aortic root is normal in size. ?The ascending aorta is normal in size. ?There is no evidence of coarctation of the aorta. Pulmonary Artery ?The main pulmonary artery appears normal. Venous ?The inferior vena cava appears dilated. ?There is a greater than 50% respiratory change in the inferior vena cava dimension. Misc ?See remainder of report for additional findings. ?Two-dimensional echo, spectral Doppler and color Doppler performed. Wall Motion: Segment Name ?Rest ? Base-Anteroseptal ?? Normal ? Base-Anterior ? Normal ? Base-Anterolateral ??Normal ? Base-Posterolateral Normal ? Base-Inferior ? Normal ? Base-Inferoseptal ?? Normal ? Mid-Anteroseptal ?Normal ? Mid-Anterior ?Normal ? Mid-Anterolateral ?? Normal ? Mid-Posterolateral ??Normal ? Mid-Inferior ?Normal ? Mid-Inferoseptal ?Normal ? [place]-Septal ? Normal ? [place]-Anterior ? Normal ? [place]-Lateral ?Normal ? [place]-Inferior ? Normal ? [place]-Tip ?Normal ? Chambers ?Value ?Units (Range) ? LV EF Est ? 70 ? % (55 to 80) ? IVSd 2D ? 0.9 ?cm ? LVIDd 2D ?5.1 ?cm ? PWd 2D ?0.7 ?cm ? LVIDs 2D ?3 ?cm ? LVFS 2D ? 41 ? % ? LA area ? 22 ? cm2 (<21) ? RA area ? 19 ? cm2 (<18) ? Ao root ? 3.6 ?cm (2.1 to 3.6) ? Asc Ao ?3.5 ?cm (2 to 3.5) ? Mitral Valve ?Value ?Units (Range) ? E peak ?1.09 ? m/sec ? E/A ratio ? 1.3 ?ratio ? MVDT ?342 ?msec ? E1 ?0.07 ? m/sec ? E/E1 ?15.6 ? ratio ? This report has been electronically signed by: Riley Huitron MD ? 01/31/2015 12:29:59 Images reviewed and interpretation verified [facility] Cardiac Ultrasound Laboratory Procedure Note Riley Huitron MD - 01/31/2015 Amended Report Procedure: Transthoracic Echocardiogram Patient: YOAN AVEALR(Age): 1945(69) Med Rec#: [id number] Sex: M Site Loc: [facility] Ht / Wt: 188(cm)/98(kg) Pt. Loc: Adult Floor BSA: 2.26 Study Date: 01/31/2015 Pt. Type: Inpatient Tape: [id number] Referring: Jose Santiago Referring: ORLANDO DAMIAN Cytology Technologist: Olga Lidia Cevallos Diagnosis: Bacteremia (790.7) CPT Code(s): Echo Full (84103), Spectral Doppler (52110), Color Doppler (97002), Indication(s):Rhythm: Sinus HR BP 148/74 SUMMARY: 1. Left ventricular chamber size, wall thickness, global and segmental systolic function are within normal limits. Ejection fraction is estimated to be 70%. 2. There is mild (1+/4+) mitral regurgitation present. 3. No valvular vegetations noted on average quality TTE. 4. See remainder of report for additional findings. FINDINGS: Left Ventricle Left ventricular chamber size, wall thickness, global and segmental systolic function are within normal limits. Ejection fraction is estimated to be 70%. There is no evidence of LVOT obstruction. No ventricular septal defect is visualized. There are no left ventricular segmental wall motion abnormalities. Left sided filling pressure could not be assessed by Doppler. Left Atrium The left atrium is normal in size.(29 ml/m2). No atrial septal defect is visualized. Right Ventricle Right ventricular chamber size, wall thickness, and systolic function are within normal limits. Pulmonary artery hypertension could not be assessed due to inadequate tricuspid regurgitation jet. Right Atrium The right atrium is mildly dilated. Aortic Valve The aortic valve is tricuspid. Difficult to rule out functionally bicuspid valve. The left coronary cusp of the aortic valve is thickened. The non coronary cusp of the aortic valve is thickened. Mild aortic leaflet calcification is visualized. There is aortic annular calcification. There is no evidence of aortic valve stenosis. There is a trace of aortic regurgitation present. No vegetation is observed on the aortic valve. Mitral Valve The mitral valve appears normal in structure and function. There is thickening of the anterior mitral valve leaflet. There is no evidence of mitral valve leaflet prolapse. There is mitral annular calcification. There is no evidence of mitral stenosis. There is mild (1+/4+) mitral regurgitation present. Tricuspid Valve The tricuspid valve appears normal in structure and function. There is trace tricuspid regurgitation present. No vegetation is observed on the tricuspid valve. Pulmonic Valve The pulmonic valve appears normal in structure and function. No vegetation is observed on the pulmonic valve. Pericardium The pericardium appears normal and there is no evidence of a pericardial effusion. Aorta The aortic root is normal in size. The ascending aorta is normal in size. There is no evidence of coarctation of the aorta. Pulmonary Artery The main pulmonary artery appears normal. Venous The inferior vena cava appears dilated. There is a greater than 50% respiratory change in the inferior vena cava dimension. Misc See remainder of report for additional findings. Two-dimensional echo, spectral Doppler and color Doppler performed. Wall Motion: Segment Name Rest Base-Anteroseptal Normal Base-Anterior Normal Base-Anterolateral Normal Base-Posterolateral Normal Base-Inferior Normal Base-Inferoseptal Normal Mid-Anteroseptal Normal Mid-Anterior Normal Mid-Anterolateral Normal Mid-Posterolateral Normal Mid-Inferior Normal Mid-Inferoseptal Normal [place]-Septal Normal [place]-Anterior Normal [place]-Lateral Normal [place]-Inferior Normal [place]-Tip Normal Chambers Value Units (Range) LV EF Est 70 % (55 to 80) IVSd 2D 0.9 cm LVIDd 2D 5.1 cm PWd 2D 0.7 cm LVIDs 2D 3 cm LVFS 2D 41 % LA area 22 cm2 (<21) RA area 19 cm2 (<18) Ao root 3.6 cm (2.1 to 3.6) Asc Ao 3.5 cm (2 to 3.5) Mitral Valve Value Units (Range) E peak 1.09 m/sec E/A ratio 1.3 ratio MVDT 342 msec E1 0.07 m/sec E/E1 15.6 ratio This report has been electronically signed by: Riley Huitron MD 01/31/2015 12:29:59 Images reviewed and interpretation verified [facility] Cardiac Ultrasound Laboratory Jose Santiago MD ECHO ORDERABLES * POCT Glucose (01/31/2015 7:04 AM EST) Glucose, POC 98 60 - 199 mg/dL [facility] Comment: Supplemental ranges: <140 mg/dL before meals <180 mg/dL all other times of the day Blood specimen (specimen) 01/31/2015 7:04 AM EST 01/31/2015 7:04 AM EST Jose Santiago MD POINT OF CARE TEST O RDERABLES [facility] * (ABNORMAL) Differential, Automated (01/31/2015 6:02 AM EST) Neutrophil % 74.7 % [facility] Neutrophil Absolute 6.50(H) 1.50 - 6.30 x10(3)/mc L [facility] Lymph % 14.8 % [facility]NI[facility] Lymphocytes Abs 1.3 1.0 - 3.6 x10(3)/mc L [facility] Monocyte % 9.7 % [facility]NI[facility] Monocyte Abs 0.8 0.2 - 1.0 x10(3)/mc L [facility] Eos % 0.7 % [facility] Eosinophils Abs 0.1 0.0 - 0.5 x10(3)/mc L [facility] Basophil % 0.0 % [facility] Baso Absolute 0.0 0.0 - 0.2 x10(3)/mc L [facility] Immature Gran % 0.10 % [facility]ERN ER [facility]ILLENNI[facility] Comment: Immature granulocytes(IG's)percentage and absolute count will include metamyelocytes, myelocytes, and promyelocytes. Blood smears from CBCs yielding IG's will be scanned manually for concordance. If this scan disagrees with the automated IG or if promyelocytes are noted, a manual differential will be performed. Immature Gran Absolute 0.01 0.00 - 0.05 x10(3)/mc L [facility] Blood specimen (specimen) 01/31/2015 6:02 AM EST 01/31/2015 6:06 AM EST Narrative Resulting Agency Comment Spec In Lab Jose Santiago MD HEMATOLOGY ORDERABLE S [facility] * (ABNORMAL) Hemogram (01/31/2015 6:02 AM EST) White Blood Cell 8.7 4.0 - 10.0 x10(3)/mc L [facility] Red Blood Cell 4.01(L) 4.63 - 6.08 x10(6)/mc L [facility] Hemoglobin 12.8(L) 13.7 - 17.5 gm/dL [facility] Hematocrit 37.5(L) 40.0 - 51.0 % [facility]ILLENNI[facility] Mean Cell Volume 93.5(H) 79.0 - 92.0 fL [facility] Mean Cell Hemoglobin 31.9 25.6 - 32.2 pg [facility] Mean Cell Hemoglobin Concentration 34.1 32.0 - 36.5 gm/dL [facility] Platelet 237 145 - 370 x10(3)/mc L [facility]ILLENNI[facility] RDW Standard Deviation 41.9 35.0 - 46.0 fL [facility]ILLENNI[facility] RDW coefficient of variation 12.3 10.9 - 14.4 % [facility]ILLENNI[facility] Mean Platelet Volume 11.2 9.0 - 12.0 fL [facility] Blood specimen (specimen) 01/31/2015 6:02 AM EST 01/31/2015 6:06 AM EST Narrative Resulting Agency Comment Spec In Lab Jose Santiago MD HEMATOLOGY ORDERABLE S [facility] * (ABNORMAL) Basic Metabolic Panel (non-fasting) (01/31/2015 6:02 AM EST) Glucose 123 60 - 199 mg/dL [facility] Comment:Diabetes: >=200 mg/d L plus symptoms Blood Urea Nitrogen 24(H) 10 - 20 mg/dL [facility] Creatinine 0.76(L) 0.80 - 1.50 mg/dL [facility] Comment: Please note that the pediatric reference intervals supplied above were not validated at [facility]. Results from pediatric patients should be interpreted in conjunction to the patient's age, height and muscle mass. Sodium 137 135 - 145 mmol/L [facility] Potassium 4.0 3.5 - 5.0 mmol/L [facility] Comment: Please note: ??Patients with WBC >100,000 may have falsely elevated Potassium levels. ??For accurate Potassium quantification in these patients send serum separator tube (gold top) for subsequent determinations. ??Contact the Clinical Chemistry Laboratory if there are any questions. Chloride 99 98 - 107 mmol/L [facility] Carbon Dioxide 29 22 - 31 mmol/L [facility]ILL[facility] Anion Gap 9 5 - 15 mmol/L [facility] Calcium 8.8 8.5 - 10.5 mg/dL [facility] MILLENNI[facility] Est Glomerular Filtration Rate >60 >=60 [facility] Comment: This estimated GFR (eGFR) value was calculated using the MDRD equation which has been validated on patients between the ages of 18 and 70. The MDRD should not be used to assess kidney function in patients < 18 years of age or in patients with extremes of body mass, or in patients with acute kidney failure. This value should be multiplied by 1.2 for patients. For further information please copy and paste the following links into your internet browser. [email or web address] Blood specimen (specimen) 01/31/2015 6:02 AM EST 01/31/2015 6:06 AM EST Narrative Resulting Agency Comment Spec In Lab Jose Santiago MD CHEMISTRY ORDERABLES [facility] * POCT Glucose (01/30/2015 4:23 PM EST) [facility] Signature Glucose, POC 118 60 - 199 mg/dL [facility]ERNER MILLENNIUM Comment: Supplemental ranges: <140 mg/dL before meals <180 mg/dL all other times of the day Blood specimen (specimen) 01/30/2015 4:23 PM EST 01/30/2015 4:23 PM EST Jose Santiago MD POINT OF CARE TEST O RDERABLES Performing Organization Address [facility] de Phone Number [facility] SP[facility] * POCT Glucose (01/30/2015 11:53 AM EST) Glucose, POC 101 60 - 199 mg/dL [facility] Comment: Supplemental ranges: <140 mg/dL before meals <180 mg/dL all other times of the day Blood specimen (specimen) 01/30/2015 11:53 AM EST 01/30/2015 11:53 AM EST Jose Santiago MD POINT OF CARE TEST O RDERAKEIRY Performing Organization Address [facility] Phone Number [facility] * Scan, Peripheral Blood (01/30/2015 10:08 AM EST) Plat estimate Normal CERNER MILLENNIUM RBC Morphology Normal CERNE R MILLENNIUM Blood specimen (specimen) 01/30/2015 10:08 AM EST 01/30/2015 10:16 AM EST Narrative Resulting Agency Comment Spec In Lab Jose Santiago MD HEMATOLOGY ORDERABLE S Performing Organization Address [facility] Phone Number [facility]ERNER MILLENNI[facility] * (ABNORMAL) Differential, Automated (01/30/2015 10:08 AM EST) Neutrophil % 84.0 % CERNER MILLENNIUM Neutrophil Absolute 8.17(H) 1.50 - 6.30 x10(3)/mc L CERNER MILLENNIUM Lymph % 11.4 % CERNER MILLENNIUM Lymphocytes Abs 1.1 1.0 - 3.6 x10(3)/mc L CERNER MILLENNIUM Monocyte % 4.4 % CERNER MILLENNIUM Monocyte Abs 0.4 0.2 - 1.0 x10(3)/mc L CERNER MILLENNIUM Eos % 0.0 % CERNER MILLENNIUM Eosinophils Abs 0.0 0.0 - 0.5 x10(3)/mc L CERNER MILLENNIUM Basophil % 0.0 % CERNER MILLENNIUM Baso Absolute 0.0 0.0 - 0.2 x10(3)/mc L CERNER MILLENNIUM Immature Gran % 0.20 % CERN ER MILLENNIUM Comment: Immature granulocytes(IG's)percentage and absolute count will include metamyelocytes, myelocytes, and promyelocytes. Blood smears from CBCs yielding IG's will be scanned manually for concordance. If this scan disagrees with the automated IG or if promyelocytes are noted, a manual differential will be performed. Immature Gran Absolute 0.02 0.00 - 0.05 x10(3)/mc L CERN[facility] MILLENNIUM Blood specimen (specimen) 01/30/2015 10:08 AM EST 01/30/2015 10:16 AM EST Narrative Resulting Agency Comment Spec In Lab Jose Santiago MD HEMATOLOGY ORDERABLE S CERNER MILLENNIUM * (ABNORMAL) Hemogram (01/30/2015 10:08 AM EST) White Blood Cell 9.7 4.0 - 10.0 x10(3)/mc L CERNER MILLENNIUM Red Blood Cell 4.06(L) 4.63 - 6.08 x10(6)/mc L CERNER MILLENNIUM Hemoglobin 13.2(L) 13.7 - 17.5 gm/dL CERNER MILLENNIUM Hematocrit 38.1(L) 40.0 - 51.0 % CERNER MILLENNIUM Mean Cell Volume 93.8(H) 79.0 - 92.0 fL [facility]ERNER MILLENNIUM Mean Cell Hemoglobin 32.5(H) 25.6 - 32.2 pg CERNER MILLENNIUM Mean Cell Hemoglobin Concentration 34.6 32.0 - 36.5 gm/dL CERNER MILLENNIUM Platelet 244 145 - 370 x10(3)/mc L CERNER MILLENNIUM RDW Standard Deviation 42.1 35.0 - 46.0 fL CERNER MILLENNIUM RDW coefficient of variation 12.4 10.9 - 14.4 % CERNER MILLENNIUM Mean Platelet Volume 10.8 9.0 - 12.0 fL [facility] MILLENNIUM Blood specimen (specimen) 01/30/2015 10:08 AM EST 01/30/2015 10:16 AM EST Narrative Resulting Agency Comment Spec In Lab Jose Sanitago MD HEMATOLOGY ORDERABLE S C[facility]ER MILLENNIUM * (ABNORMAL) Basic Metabolic Panel (non-fasting) (01/30/2015 10:00 AM EST) Glucose 96 60 - 199 mg/dL [facility]ERNER MILLENNIUM Comment:Diabetes: >=200 mg/d L plus symptoms Blood Urea Nitrogen 24(H) 10 - 20 mg/dL CERNER MILLENNIUM Creatinine 0.72(L) 0.80 - 1.50 mg/dL [facility]ER MILLENNIUM Comment: Please note that the pediatric reference intervals supplied above were not validated at [facility]. Results from pediatric patients should be interpreted in conjunction to the patient's age, height and muscle mass. Sodium 139 135 - 145 mmol/L CERNER MILLENNIUM Potassium 4.1 3.5 - 5.0 mmol/L CERNER MILLENNIUM Comment: Please note: ??Patients with WBC >100,000 may have falsely elevated Potassium levels. ??For accurate Potassium quantification in these patients send serum separator tube (gold top) for subsequent determinations. ??Contact the Clinical Chemistry Laboratory if there are any questions. Chloride 101 98 - 107 mmol/L CERNER MILLENNIUM Carbon Dioxide 27 22 - 31 mmol/L CERNER MILLENNIUM Anion Gap 11 5 - 15 mmol/L CERNER MILLENNIUM Calcium 9.1 8.5 - 10.5 mg/dL CERNER MILLENNIUM Est Glomerular Filtration Rate >60 >=60 CERNER MILLENNIUM Comment: This estimated GFR (eGFR) value was calculated using the MDRD equation which has been validated on patients between the ages of 18 and 70. The MDRD should not be used to assess kidney function in patients < 18 years of age or in patients with extremes of body mass, or in patients with acute kidney failure. This value should be multiplied by 1.2 for patients. For further information please copy and paste the following links into your internet browser. [email or web address] Blood specimen (specimen) 01/30/2015 10:00 AM EST 01/30/2015 10:16 AM EST Narrative Resulting Agency Comment Spec In Lab Jose Santiago MD CHEMISTRY ORDERABLES Performing Organization Address [facility] Phone Number [facility] * POCT Glucose (01/30/2015 8:09 AM EST) Glucose, POC 175 60 - 199 mg/dL [facility] Comment: Supplemental ranges: <140 mg/dL before meals <180 mg/dL all other times of the day Blood specimen (specimen) 01/30/2015 8:09 AM EST 01/30/2015 8:09 AM EST Jose Santiago MD POINT OF CARE TEST O RDERABLES Performing Organization Address [facility] Phone Number [facility] * (ABNORMAL) POCT Glucose (01/30/2015 8:07 AM EST) Glucose, POC 577(Critic al) 60 - 199 mg/dL [facility] Comment: Supplemental ranges: <140 mg/dL before meals <180 mg/dL all other times of the day Blood specimen (specimen) 01/30/2015 8:07 AM EST 01/30/2015 8:07 AM EST Jose Santiago MD POINT OF CARE TEST O RDERABLES Performing Organization Address [facility] de Phone Number [facility] * POCT Glucose (01/29/2015 8:37 PM EST) Glucose, POC 121 60 - 199 mg/dL [facility] Comment: Supplemental ranges: <140 mg/dL before meals <180 mg/dL all other times of the day Blood specimen (specimen) 01/29/2015 8:37 PM EST 01/29/2015 8:37 PM EST Jose Santiago MD POINT OF CARE TEST O RDERABLES Performing Organization Address [facility] Phone Number [facility] * (ABNORMAL) Vancomycin, trough (01/29/2015 4:15 PM EST) Vancomycin, Trough 30.5(Crit ical) mg/L [facility] Comment: Called by: mariaelena, Read back by: so, Date/Time:01/29/15 17:16. Therapeutic range for complicated infections such as bacteremia, endocarditis, osteomyelitis, meningitis, and hospital-acquired pneumonia caused by S. aureus: 15-20 mg/L Therapeutic range for other indications: 10-15 mg/L Toxic: >25 mg/L Reference: Vancomycin Therapeutic Monitoring: Review and Recommendations from the ASHP, IDSA and SIDP Task Force. ??Am J Health-Syst Pharm. 2009; 66:82-98 Blood specimen (specimen) 01/29/2015 4:15 PM EST 01/29/2015 4:16 PM EST Narrative Resulting Agency Comment Spec In Lab Jose Santiago MD CHEMISTRY ORDERABLES Performing Organization Address [facility] Phone Number [facility] * POCT Glucose (01/29/2015 3:59 PM EST) Glucose, POC 117 60 - 199 mg/dL [facility] Comment: Supplemental ranges: <140 mg/dL before meals <180 mg/dL all other times of the day Blood specimen (specimen) 01/29/2015 3:59 PM EST 01/29/2015 3:59 PM EST Jose Santiago MD POINT OF CARE TEST O RDERABLES Performing Organization Address [facility] Phone Number [facility] * POCT Glucose (01/29/2015 11:33 AM EST) Glucose, POC 117 60 - 199 mg/dL [facility] Comment: Supplemental ranges: <140 mg/dL before meals <180 mg/dL all other times of the day Blood specimen (specimen) 01/29/2015 11:33 AM EST 01/29/2015 11:33 AM EST Jose Santiago MD POINT OF CARE TEST O RDERABLES [facility] * POCT Glucose (01/29/2015 7:16 AM EST) Glucose, POC 131 60 - 199 mg/dL [facility] Comment: Supplemental ranges: <140 mg/dL before meals <180 mg/dL all other times of the day Blood specimen (specimen) 01/29/2015 7:16 AM EST 01/29/2015 7:16 AM EST Jose Santiago MD POINT OF CARE TEST O RDERABLES Performing Organization Address [facility] [place] de Phone Number CERTONI SPENCERENNIUM * (ABNORMAL) Differential, Automated (01/29/2015 5:34 AM EST) Neutrophil % 85.8 % CERNER MILLENNIUM Neutrophil Absolute 10.78(H) 1.50 - 6.30 x10(3)/mc L [facility]ERNER MILLENNIUM Lymph % 8.0 % [facility]ERNER MILLENNIUM Lymphocytes Abs 1.0 1.0 - 3.6 x10(3)/mc L CERNER MILLENNIUM Monocyte % 6.0 % [facility]ERNER MILLENNIUM Monocyte Abs 0.8 0.2 - 1.0 x10(3)/mc L CERNER MILLENNIUM Eos % 0.0 % [facility]ERNER MILLENNIUM Eosinophils Abs 0.0 0.0 - 0.5 x10(3)/mc L [facility]ERNER MILLENNIUM Basophil % 0.0 % [facility]ERNER MILLENNIUM Baso Absolute 0.0 0.0 - 0.2 x10(3)/mc L [facility]ERNER MILLENNIUM Immature Gran % 0.20 % [facility]ERN ER MILLENNI[facility] Comment: Immature granulocytes(IG's)percentage and absolute count will include metamyelocytes, myelocytes, and promyelocytes. Blood smears from CBCs yielding IG's will be scanned manually for concordance. If this scan disagrees with the automated IG or if promyelocytes are noted, a manual differential will be performed. Immature Gran Absolute 0.02 0.00 - 0.05 x10(3)/mc L [facility]ER MILLENNIUM Blood specimen (specimen) 01/29/2015 5:34 AM EST 01/29/2015 5:57 AM EST Narrative Resulting Agency Comment Spec In Lab Jose Santiago MD HEMATOLOGY ORDERABLE S [facility]ILLEN[facility] * (ABNORMAL) Hemogram (01/29/2015 5:34 AM EST) White Blood Cell 12.6(H) 4.0 - 10.0 x10(3)/mc L [facility]ER MILLENNIUM Red Blood Cell 3.87(L) 4.63 - 6.08 x10(6)/mc L [facility]ERNER MILLENNIUM Hemoglobin 12.6(L) 13.7 - 17.5 gm/dL [facility]ER MILLENNIUM Hematocrit 36.1(L) 40.0 - 51.0 % CERNER MILLENNIUM Mean Cell Volume 93.3(H) 79.0 - 92.0 fL [facility]ERNER MILLENNIUM Mean Cell Hemoglobin 32.6(H) 25.6 - 32.2 pg CERNER MILLENNIUM Mean Cell Hemoglobin Concentration 34.9 32.0 - 36.5 gm/dL [facility]ERNER MILLENNIUM Platelet 237 145 - 370 x10(3)/mc L CERNER MILLENNIUM RDW Standard Deviation 42.6 35.0 - 46.0 fL CERNER MILLENNIUM RDW coefficient of variation 12.5 10.9 - 14.4 % CERNER MILLENNIUM Mean Platelet Volume 11.3 9.0 - 12.0 fL [facility] MILLENNIUM Blood specimen (specimen) 01/29/2015 5:34 AM EST 01/29/2015 5:57 AM EST Narrative Resulting Agency Comment Spec In Lab Jose Santiago MD HEMATOLOGY ORDERABLE S [facility] MILLENNI[facility] * (ABNORMAL) Basic Metabolic Panel (non-fasting) (01/29/2015 5:34 AM EST) [facility] Glucose 126 60 - 199 mg/dL [facility]ER MILLENNIUM Comment:Diabetes: >=200 mg/d L plus symptoms Blood Urea Nitrogen 21(H) 10 - 20 mg/dL [facility]ERNER MILLENNIUM Creatinine 0.77(L) 0.80 - 1.50 mg/dL [facility] MILLENNIUM Comment: Please note that the pediatric reference intervals supplied above were not validated at [facility]. Results from pediatric patients should be interpreted in conjunction to the patient's age, height and muscle mass. Sodium 138 135 - 145 mmol/L [facility]ERNER MILLENNIUM Potassium 4.1 3.5 - 5.0 mmol/L [facility] MILLENNIUM Comment: Please note: ??Patients with WBC >100,000 may have falsely elevated Potassium levels. ??For accurate Potassium quantification in these patients send serum separator tube (gold top) for subsequent determinations. ??Contact the Clinical Chemistry Laboratory if there are any questions. Chloride 102 98 - 107 mmol/L [facility]ER MILLENNIUM Carbon Dioxide 24 22 - 31 mmol/L [facility]ERNER MILLENNIUM Anion Gap 12 5 - 15 mmol/L [facility]ERNER MILLENNIUM Calcium 8.9 8.5 - 10.5 mg/dL CERNER MILLENNIUM Est Glomerular Filtration Rate >60 >=60 [facility]ER MILLENNIUM Comment: This estimated GFR (eGFR) value was calculated using the MDRD equation which has been validated on patients between the ages of 18 and 70. The MDRD should not be used to assess kidney function in patients < 18 years of age or in patients with extremes of body mass, or in patients with acute kidney failure. This value should be multiplied by 1.2 for patients. For further information please copy and paste the following links into your internet browser. [email or web address] Blood specimen (specimen) 01/29/2015 5:34 AM EST 01/29/2015 5:57 AM EST Narrative Resulting Agency Comment Spec In Lab Jose Santiago MD CHEMISTRY ORDERABLES [facility] * POCT Glucose (01/28/2015 4:41 PM EST) Glucose, POC 118 60 - 199 mg/dL [facility] Comment: Supplemental ranges: <140 mg/dL before meals <180 mg/dL all other times of the day Blood specimen (specimen) 01/28/2015 4:41 PM EST 01/28/2015 4:41 PM EST Jose Santiago MD POINT OF CARE TEST O RDERABLES Performing Organization Address [facility] de Phone Number [facility] * POCT Glucose (01/28/2015 12:29 PM EST) Glucose, POC 118 60 - 199 mg/dL [facility] Comment: Supplemental ranges: <140 mg/dL before meals <180 mg/dL all other times of the day Blood specimen (specimen) 01/28/2015 12:29 PM EST 01/28/2015 12:29 PM EST Jose Santiago MD POINT OF CARE TEST O RDERAKEIRY Performing Organization Address [facility] Phone Number [facility] * XR VAS venous access (PICC placement) (01/28/2015 11:53 AM EST) Anatomical Region Laterality Modality N/A Radiographic Meagan ging 01/28/2015 11:5 3 AM EST Narrative 01/28/2015 12:00 PM EST EXAMINATION: PLACEMENT PICC LINE (IV TEAM) Over 5 yrs/XCARM CLINICAL HISTORY: brain mass access/abx ??4 djiboutian 1 lumen ??no restrictions TECHNIQUE: C-arm placement of PICC. Limited view of the line tip only. FINDINGS: Intraprocedural frontal radiograph of the mediastinum demonstrates a Right PICC, with the catheter tip projected at the mid SVC. Procedure Note Yaima Monet MD - 01/28/2015 EXAMINATION: PLACEMENT PICC LINE (IV TEAM) Over 5 yrs/XCARM CLINICAL HISTORY: brain mass access/abx 4 djiboutian 1 lumen norestrictions TECHNIQUE: C-arm placement of PICC. Limited view of the line tip only. FINDINGS: Intraprocedural frontal radiograph of the mediastinumdemonstrates a Right PICC, with the catheter tip projected at the mid SVC. Jose Santiago MD IMG FLUORO ORDERABLE S * POCT Glucose (01/28/2015 8:00 AM EST) Glucose, POC 124 60 - 199 mg/dL [facility] Comment: Supplemental ranges: <140 mg/dL before meals <180 mg/dL all other times of the day Blood specimen (specimen) 01/28/2015 8:00 AM EST 01/28/2015 8:00 AM EST Jose Santiago MD POINT OF CARE TEST O RDERABLES [facility] * (ABNORMAL) Differential, Automated (01/28/2015 2:46 AM EST) Neutrophil % 88.5 % CERNER MILLENNIUM Neutrophil Absolute 12.35(H) 1.50 - 6.30 x10(3)/mc L [facility]ER MILLENNIUM Lymph % 6.2 % CERNER MILLENNIUM Lymphocytes Abs 0.9(L) 1.0 - 3.6 x10(3)/mc L [facility]ER MILLENNIUM Monocyte % 5.1 % [facility]ERNER MILLENNIUM Monocyte Abs 0.7 0.2 - 1.0 x10(3)/mc L [facility]ERNER MILLENNIUM Eos % 0.0 % [facility]ERNER MILLENNIUM Eosinophils Abs 0.0 0.0 - 0.5 x10(3)/mc L [facility]ER MILLENNIUM Basophil % 0.0 % [facility]ER MILLENNIUM Baso Absolute 0.0 0.0 - 0.2 x10(3)/mc L [facility] MILLENNI[facility] Immature Gran % 0.20 % [facility] Comment: Immature granulocytes(IG's)percentage and absolute count will include metamyelocytes, myelocytes, and promyelocytes. Blood smears from CBCs yielding IG's will be scanned manually for concordance. If this scan disagrees with the automated IG or if promyelocytes are noted, a manual differential will be performed. Immature Gran Absolute 0.03 0.00 - 0.05 x10(3)/mc L [facility] MILLENNIUM Blood specimen (specimen) 01/28/2015 2:46 AM EST 01/28/2015 2:55 AM EST Narrative Resulting Agency Comment Spec In Lab Jose Santiago MD HEMATOLOGY ORDERABLE S [facility] * (ABNORMAL) Hemogram (01/28/2015 2:46 AM EST) White Blood Cell 14.0(H) 4.0 - 10.0 x10(3)/mc L [facility]ER MILLENNIUM Red Blood Cell 4.28(L) 4.63 - 6.08 x10(6)/mc L [facility] MILLENNIUM Hemoglobin 13.8 13.7 - 17.5 gm/dL [facility]ER MILLENNIUM Hematocrit 40.2 40.0 - 51.0 % CERNER MILLENNIUM Mean Cell Volume 93.9(H) 79.0 - 92.0 fL [facility]ERNER MILLENNIUM Mean Cell Hemoglobin 32.2 25.6 - 32.2 pg CERNER MILLENNIUM Mean Cell Hemoglobin Concentration 34.3 32.0 - 36.5 gm/dL [facility]ERNER MILLENNIUM Platelet 261 145 - 370 x10(3)/mc L CERNER MILLENNIUM RDW Standard Deviation 43.1 35.0 - 46.0 fL CERNER MILLENNIUM RDW coefficient of variation 12.6 10.9 - 14.4 % CERNER MILLENNIUM Mean Platelet Volume 10.7 9.0 - 12.0 fL CERNER MILLENNIUM Blood specimen (specimen) 01/28/2015 2:46 AM EST 01/28/2015 2:55 AM EST Narrative Resulting Agency Comment Spec In Lab Jose Santiago MD HEMATOLOGY ORDERABLE S CERNER MILLENNIUM * (ABNORMAL) Basic Metabolic Panel (non-fasting) (01/28/2015 2:46 AM EST) Glucose 131 60 - 199 mg/dL CERNER MILLENNIUM Comment:Diabetes: >=200 mg/d L plus symptoms Blood Urea Nitrogen 21(H) 10 - 20 mg/dL CERNER MILLENNIUM Creatinine 0.86 0.80 - 1.50 mg/dL CERNER MILLENNIUM Comment: Please note that the pediatric reference intervals supplied above were not validated at [facility]. Results from pediatric patients should be interpreted in conjunction to the patient's age, height and muscle mass. Sodium 139 135 - 145 mmol/L CERNER MILLENNIUM Potassium 4.5 3.5 - 5.0 mmol/L CERNER MILLENNIUM Comment: Please note: ??Patients with WBC >100,000 may have falsely elevated Potassium levels. ??For accurate Potassium quantification in these patients send serum separator tube (gold top) for subsequent determinations. ??Contact the Clinical Chemistry Laboratory if there are any questions. Chloride 101 98 - 107 mmol/L CERNER MILLENNIUM Carbon Dioxide 24 22 - 31 mmol/L CERNER MILLENNIUM Anion Gap 14 5 - 15 mmol/L CERNER MILLENNIUM Calcium 9.3 8.5 - 10.5 mg/dL CERNER MILLENNIUM Comment:result rechecked-TJ Est Glomerular Filtration Rate >60 >=60 CERNER MILLENNIUM Comment: This estimated GFR (eGFR) value was calculated using the MDRD equation which has been validated on patients between the ages of 18 and 70. The MDRD should not be used to assess kidney function in patients < 18 years of age or in patients with extremes of body mass, or in patients with acute kidney failure. This value should be multiplied by 1.2 for patients. For further information please copy and paste the following links into your internet browser. [email or web address] Blood specimen (specimen) 01/28/2015 2:46 AM EST 01/28/2015 2:55 AM EST Narrative Resulting Agency Comment Spec In Lab Jose Santiago MD CHEMISTRY ORDERABLES CERNER TJENNIUM * POCT Glucose (01/27/2015 8:44 PM EST) Glucose, POC 154 60 - 199 mg/dL CERNER MILLENNIUM Comment: Supplemental ranges: <140 mg/dL before meals <180 mg/dL all other times of the day Blood specimen (specimen) 01/27/2015 8:44 PM EST 01/27/2015 8:44 PM EST Jose Santiago MD POINT OF CARE TEST O RDERABLES [facility] * Pathology Addendum Report (01/27/2015 5:35 PM EST) Addendum Report ? [facility] ? Provider: ?? JOSE SANTIAGO ? Pt. Name: ?? MIRNA MILTON ? Acc #: ?[id number] ?Pt. ? Col Date: ?? 01/27/2015 ? /Sex: ?1945,(69 years),Male ? Rec Date: ?? 01/27/2015 ? LOC: ?5WST ? ADDENDUM REPORT ? ---Addendum Discussion--- ? Special stains are performed. ? Block ?Stain ?Result ( Positive / Negative ) ? A1 ? Gram ? Positive for gram positive cocci forming ?masses and chains. ? A1 ? Khris ? No atypical bacterial types noted ? A1 ? GMS ? Negative ? Comment: ? This does not change the diagnosis. ??The only type of microorganisms ? identified are consistent with Streptococcus milleri cultured ? from the tissue. ? 02/02/15 ? [facility] ? 02/02/15 Verified by: ? Jimbo Chacon MD ? Pathologist ? (Electronic Signature) ? The attending pathologist whose signature appears on this report has ? reviewed all diagnostic slides and has edited the gross and/or ? microscopic portion of the report in rendering the final pathologic ? diagnosis. [facility] 01/27/2015 5:35 PM EST Jose Santiago MD PATHOLOGY/CYTOLOGY Daisy HAYNES Performing Organization Address City/State/[facility] Co de Phone Number [facility] * Surgical Pathology Report (01/27/2015 5:35 PM EST) Final Diagnosis 00- [id number] ? [facility]; A The signing pathologist has (i) examined the relevant preparation(s) for the specimen(s) and (ii) rendered or confirmed the diagnosis(es). . ?Pathology Addendum Report Addendum Discussion Special stains are performed. Block ??Stain Result ( Positive / Negative ) A1 ??Gram Positive for gram positive cocci forming ??masses and chains. A1 ??Khris No atypical bacterial types noted A1 ??GMS Negative Comment: This does not change the diagnosis. ??The only type of microorganisms identified are consistent with Streptococcus milleri cultured from the tissue. 02/02/15 [facility] 02/02/15 Verified by: ? Jimbo Chacon MD ?Pathologist ?(Electronic Signature) The attending pathologist whose signature appears on this report has reviewed all diagnostic slides and has edited the gross and/or microscopic portion of the report in rendering the final pathologic diagnosis. ?Pathology Surgical Pathology Final Report Clinical Information Specimen Submitted: A - Abscess vs Tumor #1 B - Abscess vs Tumor #2 C - Abscess vs Tumor #3 D - Abscess vs Tumor #4 E - Abscess vs Tumor #5 Clinical History: Abscess Clinical Diagnosis: Same Gross Description - Labeled/Fixative: Abscess versus tumor #1, fresh. Quantity/Size: Fragments, collectively 1.0 x 1.0 x 0.5 cm. Tissue Description: Soft, mucoid pink del rosario and del rosario-yellow tissue. Sections/Processi ng: (T1) B - Labeled/Fixative: Abscess versus tumor #2, Fresh. Quantity/Size: Single, 0.5 cm. Tissue Description: Friable, scanlon-white tissue. Sections/Processi ng: (T1) C - Labeled/Fixative: Abscess versus tumor #3, Fresh. . Gross Description Quantity/Size: Single, 0.4 cm. Tissue Description: Soft, berry-white tissue. Sections/Processi ng: (T1) D - Labeled/Fixative: Abscess versus tumor #4, Fresh. Quantity/Size: Single, 0.8 cm. Tissue Description: Soft, yellow-del rosario tissue. Sections/Processi ng: (T1) E - Labeled/Fixative: Abscess versus tumor #5, Fresh. Quantity/Size: Fragments, collectively 1.0 x 1.0 x 0.4 cm. Tissue Description: Soft, mucoid yellow-del rosario and del rosario-brown tissue. Sections/Processi ng: (T1) ??ejr Microscopic Description Slides examined but microscopic description are not recorded. 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 (C) Small fragments of brain parenchyma with reactive and inflammatory changes. (D) Small fragments of brain parenchyma with reactive and inflammatory changes. 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 Oswaldo HOOD, Jimbo Lyons ?Pathologist ?(Electronic Signature) The attending pathologist whose signature appears on this report has reviewed all diagnostic slides and has edited the gross and/or microscopic portion of the report in rendering the final pathologic diagnosis. Comment This pathological process is infectious, not neoplastic. ??It is a bacterial abscess from [facility] h Streptococcus milleri has been cultured. ??Special stains have been ordered to determine if other organisms may also be present; those results will be reported as an addendum, when available. 02/02/2015 12:[address] [facility] BRAIN STRUCTURE / Unknown 01/27/2015 5:35 PM EST 01/27/2015 5:35 PM EST BRAIN STRUCTURE / Unknown 01/27/2015 5:35 PM EST 01/27/2015 5:35 PM EST BRAIN STRUCTURE / Unknown 01/27/2015 5:35 PM EST 01/27/2015 5:35 PM EST BRAIN STRUCTURE / Unknown 01/27/2015 5:35 PM EST 01/27/2015 5:35 PM EST BRAIN STRUCTURE / Unknown 01/27/2015 5:35 PM EST 01/27/2015 5:35 PM EST Jose Santiago MD PATHOLOGY/CYTOLOGY O IVY Performing Organization Address City/State/[facility] Co de Phone Number [facility] [place] [address] * Specimen to Pathology (surgical or derm) (01/27/2015 5:35 PM EST) AP Specimen 01/27/2015 5:35 PM EST 01/27/2015 5:35 PM EST Narrative [facility] - 01/27/2015 5:35 PM EST Specimen requisition ordered. ??Separate Pathology report to follow Jose Santiago MD PATHOLOGY/CYTOLOGY O IVY Performing Organization Address [facility] de Phone Number [facility] * Specimen to Pathology (surgical or derm) (01/27/2015 5:35 PM EST) AP Specimen 01/27/2015 5:35 PM EST 01/27/2015 5:35 PM EST Narrative [facility] - 01/27/2015 5:35 PM EST Specimen requisition ordered. ??Separate Pathology report to follow Jose Santiago MD PATHOLOGY/CYTOLOGY O IVY Performing Organization Address [facility] Co de Phone Number [facility] * Specimen to Pathology (surgical or derm) (01/27/2015 5:35 PM EST) AP Specimen 01/27/2015 5:35 PM EST 01/27/2015 5:35 PM EST Narrative [facility] - 01/27/2015 5:35 PM EST Specimen requisition ordered. ??Separate Pathology report to follow Jose Santiago MD PATHOLOGY/CYTOLOGY O IVY Performing Organization Address [facility] de Phone Number [facility] * Specimen to Pathology (surgical or derm) (01/27/2015 5:35 PM EST) AP Specimen 01/27/2015 5:35 PM EST 01/27/2015 5:35 PM EST Narrative [facility] - 01/27/2015 5:35 PM EST Specimen requisition ordered. ??Separate Pathology report to follow Jose Santiago MD PATHOLOGY/CYTOLOGY O IVY Performing Organization Address [facility] Co de Phone Number [facility] * Specimen to Pathology (surgical or derm) (01/27/2015 5:35 PM EST) AP Specimen 01/27/2015 5:35 PM EST 01/27/2015 5:35 PM EST Narrative [facility] - 01/27/2015 5:35 PM EST Specimen requisition ordered. ??Separate Pathology report to follow Jose Santiago MD PATHOLOGY/CYTOLOGY O IVY Performing Organization Address [facility] Co de Phone Number [facility] * Anaerobic Culture (01/27/2015 5:25 PM EST) Anaerobic Culture ? Patient Name: MIRNA MILTON ?Ordered By: JOSE SANTIAGO ? MR#: [id number] ?LOC: ??5WST ? /Sex: ??1945 (69 years), ? Male ? PROCEDURE: Anaerobic Culture ?SOURCE: Other ? COLLECTED: 01/27/2015 17:25 ?FREE TEXT SOURCE: ? abscess vs tumor ? STARTED: 01/27/2015 17:38 ? FINAL REPORT ? Final Report ? Verified:2014 13:14 ? No anaerobic organisms isolated ? PRELIMINARY REPORT ? Preliminary Report ? Verified:2014 12:58 ? No anaerobic organisms isolated to date ? [facility] Specimen of unknown material (specimen) 01/27/2015 5:25 PM EST 01/27/2015 5:38 PM EST Comment:? ABSCESS VS TUMOR Narrative Resulting Agency Comment Spec In Lab Jose Santiago MD MICROBIOLOGY - GENER AL ORDERABLES [facility] * Tissue culture (01/27/2015 5:25 PM EST) Tissue Culture ? Patient Name: MIRNA MILTON ?Ordered By: PAMELA JOSE A ? MR#: [id number] ?LOC: ??5WST ? /Sex: ??1945 (69 years), ? Male ? PROCEDURE: Tissue Culture ?SOURCE: Other ? COLLECTED: 01/27/2015 17:25 ?FREE TEXT SOURCE: ? abscess vs tumor ? STARTED: 01/27/2015 17:38 ? STAINS / PREPARATIONS ? Gram Stain Report ? Verified:01/27/20 15 17:54 ? Many White Blood Cells seen ? Many Gram Positive Cocci in pairs seen ? Results called to and read back by Dr. Parker 01/27/2015 17:54:52 ? FINAL REPORT ? Final Report ? Verified:02/01/20 15 09:37 ? Many Streptococcus milleri group ? PRELIMINARY REPORT ? Preliminary Report ? Verified:01/31/20 15 09:03 ? Many Streptococcus milleri group ? SUSCEPTIBILITY RESULTS ? Streptococcus milleri group ?YOLANDE mcg/mL ?? YOLANDE Interp ? Penicillin(1) ??0.032 ?S ? S=Susceptible ??I=Intermediate ??R=Resistant ??NA=Not Applicable ? DDS=Dose dependent-suscept ible ??NS=Non-suscepti ble ? Patient: MIRNA MILTON ? MR#: [id number] ? FOOTNOTES ? (1) ? Penicillin susceptible Streptococci species can be considered susceptible ? to Ampicillin, ? Ampicillin-Sulbac singer, Amoxicillin, Amoxicillin-Clavu lanate, Ceftriaxone and ? Meropenem. ? [facility] Specimen of unknown material (specimen) 01/27/2015 5:25 PM EST 01/27/2015 5:38 PM EST Comment:? ABSCESS VS TUMOR Narrative Resulting Agency Comment Spec In Lab Jose Santiago MD MICROBIOLOGY - GENER AL ORDERABLES [facility] * Anaerobic Culture (01/27/2015 5:18 PM EST) Anaerobic Culture ? Patient Name: MIRNA MILTON ?Ordered By: JOSE SANTIAGO ? MR#: [id number] ?LOC: ??5WST ? /Sex: ??1945 (69 years), ? Male ? PROCEDURE: Anaerobic Culture ?SOURCE: Other ? COLLECTED: 01/27/2015 17:18 ?FREE TEXT SOURCE: Abscess vs Tumor #3 ? STARTED: 01/27/2015 17:59 ? FINAL REPORT ? Final Report ? Verified:2014 13:14 ? No anaerobic organisms isolated ? PRELIMINARY REPORT ? Preliminary Report ? Verified:2014 12:59 ? No anaerobic organisms isolated to date ? [facility] Specimen of unknown material (specimen) 01/27/2015 5:18 PM EST 01/27/2015 5:59 PM EST Comment:ABSCESS VS TUMOR #3 Narrative Resulting Agency Comment Spec In Lab Jose Santiago MD MICROBIOLOGY - GENER AL ORDERABLES [facility] * Tissue culture (01/27/2015 5:18 PM EST) Tissue Culture ? Patient Name: MIRNA MILTON ?Ordered By: JOSE SANTIAGO ? MR#: [id number] ?LOC: ??5WST ? /Sex: ??1945 (69 years), ? Male ? PROCEDURE: Tissue Culture ?SOURCE: Other ? COLLECTED: 01/27/2015 17:18 ?FREE TEXT SOURCE: Abscess vs Tumor #3 ? STARTED: 01/27/2015 17:59 ? STAINS / PREPARATIONS ? Gram Stain Report ? Verified:01/27/2015 18:14 ? Moderate White Blood Cells seen ? Rare Gram Positive Cocci in pairs seen ? FINAL REPORT ? Final Report ? Verified:01/31/2015 09:37 ? Moderate Streptococcus milleri group ? Susceptibilities previously reported ? PRELIMINARY REPORT ? Preliminary Report ? Verified:01/30/2015 12:12 ? Moderate Streptococcus milleri group ? Susceptibilities previously reported ? CERNER TJENNIUM Specimen of unknown material (specimen) 01/27/2015 5:18 PM EST 01/27/2015 5:59 PM EST Comment:ABSCESS VS TUMOR #3 Narrative Resulting Agency Comment Spec In Lab Jose Santiago MD MICROBIOLOGY - GENER AL ORDERABLES [facility] * Anaerobic Culture (01/27/2015 5:18 PM EST) Anaerobic Culture ? Patient Name: MIRNA MILTON ?Ordered By: JOSE SANTIAGO ? MR#: [id number] ?LOC: ??5WST ? /Sex: ??1945 (69 years), ? Male ? PROCEDURE: Anaerobic Culture ?SOURCE: Other ? COLLECTED: 01/27/2015 17:18 ?FREE TEXT SOURCE: Abscess vs Tumor #2 ? STARTED: 01/27/2015 17:59 ? FINAL REPORT ? Final Report ? Verified:2014 13:14 ? No anaerobic organisms isolated ? PRELIMINARY REPORT ? Preliminary Report ? Verified:2014 12:58 ? No anaerobic organisms isolated to date ? CERNER MILLENNIUM Specimen of unknown material (specimen) 01/27/2015 5:18 PM EST 01/27/2015 5:59 PM EST Comment:ABSCESS VS TUMOR #2 Narrative Resulting Agency Comment Spec In Lab Jose Santiago MD MICROBIOLOGY - GENER AL ORDERABLES [facility] * Tissue culture (01/27/2015 5:18 PM EST) Tissue Culture ? Patient Name: MIRNA MILTON ?Ordered By: JOSE SANTIAGO ? MR#: [id number] ?LOC: ??5WST ? /Sex: ??1945 (69 years), ? Male ? PROCEDURE: Tissue Culture ?SOURCE: Other ? COLLECTED: 01/27/2015 17:18 ?FREE TEXT SOURCE: Abscess vs Tumor #2 ? STARTED: 01/27/2015 17:59 ? STAINS / PREPARATIONS ? Gram Stain Report ? Verified:01/27/2015 18:18 ? Moderate White Blood Cells seen ? Rare Gram Positive Cocci in pairs seen ? FINAL REPORT ? Final Report ? Verified:01/31/2015 09:37 ? Moderate Streptococcus milleri group ? Susceptibilities previously reported ? PRELIMINARY REPORT ? Preliminary Report ? Verified:01/30/2015 12:11 ? Moderate Streptococcus milleri group ? Susceptibilities previously reported ? [facility] Specimen of unknown material (specimen) 01/27/2015 5:18 PM EST 01/27/2015 5:59 PM EST Comment:ABSCESS VS TUMOR #2 Narrative Resulting Agency Comment Spec In Lab Jose Santiago MD MICROBIOLOGY - GENER AL ORDERABLES Performing Organization Address City/State/[facility] Co de Phone Number [facility] [place] * MRI brain with contrast (01/27/2015 3:56 PM EST) Anatomical Region Laterality Modality Head Magnetic Resonan ce 01/27/2015 3:56 PM EST Impressions 01/27/2015 4:26 PM EST IMPRESSION: Unchanged rim-enhancing collection in the right precentral gyrus. Narrative 01/27/2015 4:26 PM EST EXAMINATION: MR BRAIN WITH gd+ CLINICAL HISTORY: NEEDS FIDUCIAL SCAN STEALTH TECHNIQUE: MR of the brain performed using preoperative protocol following intravenous administration of 10 mL Gadavist. COMPARISON: MR 01/26/2015 FINDINGS: The rim-enhancing lesion in the paramedian right precentral gyrus is unchanged compared to the prior exam. Surrounding edema is similar. No new lesions are identified. Procedure Note Jame Pruitt MD - 01/27/2015 EXAMINATION: MR BRAIN WITH gd+ CLINICAL HISTORY: NEEDS FIDUCIAL SCAN STEALTH TECHNIQUE: MR of the brain performed using preoperative protocolfollowing intravenous administration of 10 mL Gadavist. COMPARISON: MR 01/26/2015 FINDINGS: The rim-enhancing lesion in the paramedian right precentralgyrus is unchanged compared to the prior exam. Surrounding edema is similar. Nonew lesions are identified. IMPRESSION IMPRESSION: Unchanged rim-enhancing collection in the right precentral gyrus. Jose Santiago MD IMG MRI ORDERABLES * (ABNORMAL) Urinalysis with microscopic (01/27/2015 3:23 PM EST) Glucose, Urine Dipstick Negative Negative mg/dL CERNER MILLENNIUM Protein, Urine Dipstick Negative Negative mg/dL CERNER MILLENNIUM Bilirubin, Urine Dipstick Negative Negative mg/dL CERNER MILLENNIUM Comment: Clinical correlation required for positive Urine Bilirubin results as false positive may occur with some drugs and drug related products. If a false positive is suspected a serum total bilirubin should be considered if clinically indicated. Urobilinogen, Urine Dipstick Normal Normal mg/dL CERNER MILLENNIUM pH, Urn (dipstick) 5.0 5.0 - 8.0 CERNER MILLENNIUM Blood, Urine Dipstick Negative Negative mg/dL CERNER MILLENNIUM Ketone, Urine Dipstick 5(A) Negative mg/dL CERNER MILLENNIUM Nitrite, Urine Dipstick Negative Negative CERNER MILLENNIUM Leukocytes, Urine Dipstick Negative Negative mcL CERNER MILLENNIUM Appearance, Urine Dipstick Hazy(A) Clear CERNER MILLENNIUM Specific Glynn Urine Automated 1.026 1.002 - 1.030 CERNER MILLENNIUM Color, Urine Dipstick Yellow Yellow CERNER MILLENNIUM RBC, Urine 1 0 - 3 /HPF CERNER MILLENNIUM WBC, Urine 1 0 - 3 /HPF CERTONI SPENCEREN[facility]UM Bacteria, Urine Moderate(A) None /HPF CE RNER ARCADIOIUM Urine specimen (specimen) 01/27/2015 3:23 PM EST 01/27/2015 4:25 PM EST Narrative Resulting Agency Comment Spec In Lab Jose Santiago MD URINE ORDERABLES [facility] * Urine culture Clean Catch Urine (01/27/2015 3:22 PM EST) Urine Culture ? Patient Name: MIRNA MILTON ?Ordered By: JOSE SANTIAGO ? MR#: [id number] ?LOC: ??5WST ? /Sex: [birth year] (69 years), ? Male ? PROCEDURE: Urine Culture ?SOURCE: U CC ? COLLECTED: 01/27/2015 15:22 ? STARTED: 01/27/2015 16:34 ? FINAL REPORT ? Final Report ? Verified: 15:25 ? No growth (Less than 1,000 cfu/ml). ? ____ KIMBERLYN ERVINIUM Urine specimen obtained by clean catch procedure (specimen) 01/27/2015 3:22 PM EST 01/27/2015 4:34 PM EST Narrative Resulting Agency Comment Spec In Lab Jose Santiago MD MICROBIOLOGY - GENER AL ORDERABLES Performing Organization Address [facility] Phone Number [facility] * Prepare Platelets, Apheresis (01/27/2015 2:50 PM EST) Dispensed? Yes [facility] Blood specimen (specimen) 01/27/2015 2:50 PM EST 01/27/2015 2:50 PM EST Jose Santiago MD BLOOD BANK PRODUCT O RDERABLES Performing Organization Address [facility] Number [facility] * Blood culture (01/27/2015 2:45 PM EST) Blood Culture ? Patient Name: MIRNA MILTON ?Ordered By: JOSE SANTIAGO ? MR#: [id number] ?LOC: ??5WST ? /Sex: ??1945 (69 years), ? Male ? PROCEDURE: Blood Culture ?SOURCE: Blood Pedi ? COLLECTED: 01/27/2015 14:45 ? BODY SITE: Left Antecubital ? STARTED: 01/27/2015 15:03 ?FREE TEXT SOURCE: #2 ? FINAL REPORT ? Final Report ? Verified:2014 23:01 ? No growth at 5 days. ? PRELIMINARY REPORT ? Preliminary Report ? Verified:2014 23:01 ? No growth at 4 days. ? CERNER TJENNIUM Blood specimen (specimen) ANTECUBITAL REGION STRUCTURE / Unknown 01/27/2015 2:45 PM EST 01/27/2015 3:02 PM EST Comment:#2 Narrative Resulting Agency Comment Spec In Lab Jose Santiago MD MICROBIOLOGY - BLOOD ORDERABLES Performing Organization Address [facility] Phone Number KIMBERLYN ERVINI[facility] * Scanlon Hold (01/27/2015 2:40 PM EST) Pathologist [facility] Scanlon Hold Sample in lab. KIMBERLYN SPENCER[facility] Blood specimen (specimen) Venous Draw / Unknown 01/27/2015 2:40 PM EST 01/27/2015 2:55 PM EST Jose Santiago MD CHEMISTRY ORDERABLES Performing Organization Address [facility] Phone Number [facility]N [facility] * (ABNORMAL) Differential, Automated (01/27/2015 2:40 PM EST) Neutrophil % 89.3 % CERNER MILLENNIUM Neutrophil Absolute 13.55(H) 1.50 - 6.30 x10(3)/mc L CERNER MILLENNIUM Lymph % 5.1 % CERNER MILLENNIUM Lymphocytes Abs 0.8(L) 1.0 - 3.6 x10(3)/mc L CERNER MILLENNIUM Monocyte % 5.3 % CERNER MILLENNIUM Monocyte Abs 0.8 0.2 - 1.0 x10(3)/mc L CERNER MILLENNIUM Eos % 0.2 % CERNER MILLENNIUM Eosinophils Abs 0.0 0.0 - 0.5 x10(3)/mc L CERNER MILLENNIUM Basophil % 0.0 % CERNER MILLENNIUM Baso Absolute 0.0 0.0 - 0.2 x10(3)/mc L CERNER MILLENNIUM Immature Gran % 0.10 % CERN ER MILLENNIUM Comment: Immature granulocytes(IG's)percentage and absolute count will include metamyelocytes, myelocytes, and promyelocytes. Blood smears from CBCs yielding IG's will be scanned manually for concordance. If this scan disagrees with the automated IG or if promyelocytes are noted, a manual differential will be performed. Immature Gran Absolute 0.02 0.00 - 0.05 x10(3)/mc L CERNER MILLENNIUM Blood specimen (specimen) 01/27/2015 2:40 PM EST 01/27/2015 2:54 PM EST Narrative Resulting Agency Comment Spec In Lab Jose Santiago MD [facility]EMATOLOGY ORDERABLE [facility] * (ABNORMAL) Hemogram (01/27/2015 2:40 PM EST) White Blood Cell 15.2(H) 4.0 - 10.0 x10(3)/mc L CERNER MILLENNIUM Red Blood Cell 4.76 4.63 - 6.08 x10(6)/mc L CERNER MILLENNIUM Hemoglobin 15.6 13.7 - 17.5 gm/dL CERNER MILLENNIUM Hematocrit 44.1 40.0 - 51.0 % CERNER MILLENNIUM Mean Cell Volume 92.6(H) 79.0 - 92.0 fL CERNER MILLENNIUM Mean Cell Hemoglobin 32.8(H) 25.6 - 32.2 pg CERNER MILLENNIUM Mean Cell Hemoglobin Concentration 35.4 32.0 - 36.5 gm/dL CERNER MILLENNIUM Platelet 250 145 - 370 x10(3)/mc L CERNER MILLENNIUM RDW Standard Deviation 42.2 35.0 - 46.0 fL CERNER MILLENNIUM RDW coefficient of variation 12.5 10.9 - 14.4 % CERNER MILLENNIUM Mean Platelet Volume 11.2 9.0 - 12.0 fL CERNER MILLENNIUM Blood specimen (specimen) 01/27/2015 2:40 PM EST 01/27/2015 2:54 PM EST Narrative Resulting Agency Comment Spec In Lab Jose Santiago MD HEMATOLOGY ORDERABLE S Performing Organization Address [facility] de Phone Number [facility] * Antibody screen (01/27/2015 2:40 PM EST) Ab Screen Interp Negative [facility] Expires at [id number] on: [id number] [facility] Blood specimen (specimen) 01/27/2015 2:40 PM EST 01/27/2015 2:51 PM EST Narrative Resulting Agency Comment Spec In Lab Jose Santiago MD BLOOD BANK LAB ORDER PARK Performing Organization Address [facility] Phone Number [facility] * ABO/Rh Typing (01/27/2015 2:40 PM EST) Pathologist [facility] ABORH Type A Neg [facility] Blood specimen (specimen) 01/27/2015 2:40 PM EST 01/27/2015 2:51 PM EST Narrative Resulting Agency Comment Spec In Lab Jose Santiago MD BLOOD BANK LAB ORDER APRK Performing Organization Address [facility] Phone Number [facility] * Sedimentation rate (01/27/2015 2:40 PM EST) [facility] Sedimentation Rate Automated 11 0 - 15 mm/hr [facility] Blood specimen (specimen) 01/27/2015 2:40 PM EST 01/27/2015 2:54 PM EST Narrative Resulting Agency Comment Spec In Lab Jose Santiago MD HEMATOLOGY ORDERABLE S Performing Organization Address [facility] de Phone Number [facility] * High Sensitivity CRP (01/27/2015 2:40 PM EST) Pathologist [facility] C-Reactive Protein High Sensitivity 7.3 mg/L [facility] Comment: Interpretations: 1) For accurate cardiac risk [...] prevention. ??Circulation 2003; [phone] Blood specimen (specimen) 01/27/2015 2:40 PM EST 01/27/2015 2:54 PM EST Narrative Resulting Agency Comment Spec In Lab Jose Santiago MD CHEMISTRY ORDERABLES [facility] * Blood culture (01/27/2015 2:40 PM EST) Blood Culture ? Patient Name: MIRNA MILTON ?Ordered By: JOSE SANTIAGO ? MR#: [id number] ?LOC: ??[id number] ? /Sex: ??1945 (69 years), ? Male ? PROCEDURE: Blood Culture ?SOURCE: Blood ? COLLECTED: 01/27/2015 14:40 ? BODY SITE: Right Antecubital ? STARTED: 01/27/2015 15:02 ?FREE TEXT SOURCE: #1 ? FINAL REPORT ? Final Report ? Verified:2014 23:01 ? No growth at 5 days. ? PRELIMINARY REPORT ? Preliminary Report ? Verified:2014 23:01 ? No growth at 4 days. ? [facility] Blood specimen (specimen) ANTECUBITAL REGION STRUCTURE / Unknown 01/27/2015 2:40 PM EST 01/27/2015 3:02 PM EST Comment:#1 Narrative Resulting Agency Comment Spec In Lab Jose Santiago MD MICROBIOLOGY - BLOOD ORDERABLES Performing Organization Address [facility] de Phone Number [facility] * APTT (01/27/2015 2:40 PM EST) Partial Thromboplastin Time 31 25 - 35 sec [facility] Comment: Recommended therapeutic PTT range for full dose unfractionated heparin is 80-114 seconds. Blood specimen (specimen) 01/27/2015 2:40 PM EST 01/27/2015 2:54 PM EST Narrative Resulting Agency Comment Spec In Lab Jose Santiago MD HEMATOLOGY ORDERABLE S Performing Organization Address [facility] Phone Number [facility] * Prothrombin Time (01/27/2015 2:40 PM EST) Prothrombin Time 14.8 12.5 - 15.5 sec [facility] Comment: Transfusion Committee Guidelines: INR less than 2.0, PTT less than OR equal to 43.5 seconds, or Fibrinogen greater than or equal to 100 mg/dl indicate adequate procoagulant activity for hemostasis in patients without underlying bleeding disorders. International Normalization Ratio 1.1 0.9 - 1.1 [facility] Blood specimen (specimen) 01/27/2015 2:40 PM EST 01/27/2015 2:54 PM EST Narrative Resulting Agency Comment Spec In Lab Jose Santiago MD HEMATOLOGY ORDERABLE S [facility] * (ABNORMAL) Comprehensive metabolic panel (non-fasting) (01/27/2015 2:40 PM EST) Glucose 118 60 - 199 mg/dL [facility] Comment:Diabetes: >=200 mg/d L plus symptoms Blood Urea Nitrogen 22(H) 10 - 20 mg/dL [facility] Creatinine 0.91 0.80 - 1.50 mg/dL [facility] Comment: Please note that the pediatric reference intervals supplied above were not validated at [facility]. Results from pediatric patients should be interpreted in conjunction to the patient's age, height and muscle mass. Sodium 136 135 - 145 mmol/L [facility] Potassium 4.2 3.5 - 5.0 mmol/L [facility] Comment: Please note: ??Patients with WBC >100,000 may have falsely elevated Potassium levels. ??For accurate Potassium quantification in these patients send serum separator tube (gold top) for subsequent determinations. ??Contact the Clinical Chemistry Laboratory if there are any questions. Chloride 95(L) 98 - 107 mmol/L [facility] Carbon Dioxide 26 22 - 31 mmol/L [facility] Anion Gap 15 5 - 15 mmol/L [facility] Calcium 10.4 8.5 - 10.5 mg/dL [facility]ILL[facility] Protein, Total 8.0 6.4 - 8.3 gm/dL [facility]ILL[facility] Albumin 4.7 3.2 - 5.2 gm/dL [facility]ILLENNI[facility] Aspartate Aminotransferase 19 0 - 39 unit/L [facility]ILL[facility]NI[facility] Alanine Aminotransferase 22 0 - 55 unit/L [facility] MILLENNI[facility] Alkaline Phosphatase 70 40 - 120 unit/L [facility] MILLENNIUM Bilirubin, Total 1.0 0.2 - 1.3 mg/dL [facility] MILLENNI[facility] Bilirubin, Direct 0.2 0.0 - 0.3 mg/dL [facility] Est Glomerular Filtration Rate >60 >=60 [facility] Comment: This estimated GFR (eGFR) value was calculated using the MDRD equation which has been validated on patients between the ages of 18 and 70. The MDRD should not be used to assess kidney function in patients < 18 years of age or in patients with extremes of body mass, or in patients with acute kidney failure. This value should be multiplied by 1.2 for patients. For further information please copy and paste the following links into your internet browser. [email or web address] Blood specimen (specimen) 01/27/2015 2:40 PM EST 01/27/2015 2:54 PM EST Narrative Resulting Agency Comment Spec In Lab Jose Santiago MD CHEMISTRY ORDERABLES [facility] Decurate * Request for 2nd read CT Chest abdomen Pelvis (01/27/2015 1:44 PM EST) Anatomical Region Laterality Modality Chest, Abdomen, Pelvis Other 01/27/2015 1:44 PM EST Impressions 01/27/2015 2:05 PM EST IMPRESSION: Nonspecific, mildly enlarged mediastinal lymph nodes, as described. Abdomen and pelvis unremarkable, aside from enlargement of the prostate gland.. Narrative 01/27/2015 2:05 PM EST EXAMINATION: OUTSIDE CT CHEST/ABD/PELVIS CLINICAL HISTORY: ? METASTATIC BRAIN TUMOR. ? PRIMARY TUMOR; What Modality is the exam? CT Scan; Body Part (please add comments as necessary): CHEST, ABDO, PEL; I believe a reinterpretation of this exam may alter care of Patient. Yes TECHNIQUE: Intravenously enhanced CT of the chest, abdomen, and pelvis. The amount and type of contrast administered is not documented on these images. Oral contrast administered. COMPARISON: None FINDINGS: Chest: The lungs are clear. No pulmonary nodules, areas of airspace consolidation or pleural effusion. A nonspecific, 2.0 cm right paratracheal lymph node is seen. A 12 x 18 mm AP window lymph node is seen. No axillary adenopathy. No hilar adenopathy. No pericardial effusion. Abdomen/pelvis: The liver is unremarkable. No mass lesions. No dilated biliary ducts or perihepatic fluid. The spleen is remarkable for a benign-appearing, approximate 7 mm hypodensity, compatible with either a cyst or small hemangioma. No splenomegaly. The pancreas is unremarkable. The gallbladder and adrenal glands are unremarkable. The kidneys symmetrically enhance. No renal masses. No hydronephrosis. No perinephric fluid. No small bowel obstruction or areas of abnormal small bowel wall thickening. Scattered clonic diverticula are noted. No diverticulitis. No free fluid. No free air. No abdominal or pelvic lymphadenopathy. The prostate gland is enlarged. No suspicious osseous lesions. Procedure Note Orlando Benitez MD - 01/27/2015 EXAMINATION: OUTSIDE CT CHEST/ABD/PELVIS CLINICAL HISTORY: ? METASTATIC BRAIN TUMOR. ? PRIMARY TUMOR; What Modalityis the exam? CT Scan; Body Part (please add comments as necessary): CHEST,ABDO, PEL; I believe a reinterpretation of this exam may alter care of Patient.Yes TECHNIQUE: Intravenously enhanced CT of the chest, abdomen, and pelvis.The amount and type of contrast administered is not documented on theseimages. Oral contrast administered. COMPARISON: None FINDINGS: Chest: The lungs are clear. No pulmonary nodules, areas of airspace consolidationor pleural effusion. A nonspecific, 2.0 cm right paratracheal lymph node is seen. A 12 x 18 mmAP window lymph node is seen. No axillary adenopathy. No hilar adenopathy.No pericardial effusion. Abdomen/pelvis: The liver is unremarkable. No mass lesions. No dilated biliary ducts or perihepatic fluid. The spleen is remarkable for a benign-appearing,approximate 7 mm hypodensity, compatible with either a cyst or small hemangioma. No splenomegaly. The pancreas is unremarkable. The gallbladder and adrenal glands are unremarkable. The kidneys symmetrically enhance. No renal masses. No hydronephrosis. No perinephric fluid. No small bowel obstruction or areas of abnormal small bowel wallthickening. Scattered clonic diverticula are noted. No diverticulitis. No free fluid. No free air. No abdominal or pelvic lymphadenopathy. The prostate gland is enlarged. No suspicious osseous lesions. IMPRESSION IMPRESSION: Nonspecific, mildly enlarged mediastinal lymph nodes, as described.Abdomen and pelvis unremarkable, aside from enlargement of the prostate gland.. Jose Santiago MD IMG OUTSIDE [facility] TATION ORDERABLES * Request for 2nd read MR Head and Spine (01/27/2015 1:40 PM EST) Anatomical Region Laterality Modality Other 01/27/2015 1:40 PM EST Impressions 01/27/2015 2:04 PM EST IMPRESSION: 1. Posterior right frontal rim-enhancing lesion. Imaging characteristics are strongly suggestive of abscess. Metastatic neoplasm or primary glial neoplasm are considered to be less likely. 2. Minimal flow in the cervical right vertebral artery, which may be severely stenotic or occluded. There appears to be retrograde flow from the basilar confluence to the right PICA origin. Narrative 01/27/2015 2:04 PM EST EXAMINATION: OUTSIDE MR Head and Spine CLINICAL HISTORY: ? BRAIN TUMOR V ABSCESS; What Modality is the exam? MRI; Body Part (please add comments as necessary): BRAIN; I believe a reinterpretation of this exam may alter care of Patient. Yes TECHNIQUE: MRI of the brain performed prior to and following intravenous administration of 20 mL Magnevist. MRA [place] performed without the use of intravenous contrast. MRA of the neck performed prior to and following intravenous administration of 20 mL Magnevist. Study was performed at [facility] on 01/26/2015. COMPARISON: CT 01/24/2015, carotid ultrasound 01/24/2015 FINDINGS: MRI brain: A rim-enhancing lesion with extensive surrounding edema is present in the superior aspect of the right precentral gyrus. The lesion demonstrates a T2 hypointense rim, and has centrally restricted diffusion within it. There is localized mass effect and sulcal effacement. The ventricles remain normal in size and contour. There is no other area of abnormal enhancement, or restricted diffusion. MRA [place]: Intracranial internal carotid arteries are normal in caliber bilaterally. MCA, HARRY, and visualized branches are normal. There is relatively poor flow related enhancement of a portion of the intradural vertebral artery. The left intradural vertebral artery is normal. Basilar artery is normal in caliber. Posterior cerebral arteries are unremarkable. MRA neck: 2-D [id number] images demonstrate normal antegrade flow in the carotid arteries and in the left vertebral artery. There is poor flow related enhancement of the right vertebral artery. There is a common origin of the right brachiocephalic and left common carotid artery. Common carotid artery arteries are normal in caliber. There is minimal narrowing of the ICA at the carotid bifurcation bilaterally due to atherosclerotic plaque. Cervical ICAs are otherwise normal in caliber. There appears to be mild narrowing at the left vertebral origin. Cervical left vertebral artery is otherwise normal in caliber throughout. There are irregular areas of narrowing of the cervical right vertebral artery, and the superior cervical and intradural portions do not appear to be opacified. The proximal intradural portion between the PICA origin and confluence of the basilar is opacified, and this may be filling retrograde. Procedure Note Jame Pruitt MD - 01/27/2015 EXAMINATION: OUTSIDE MR Head and Spine CLINICAL HISTORY: ? BRAIN TUMOR V ABSCESS; What Modality is the exam? MRI;Body Part (please add comments as necessary): BRAIN; I believe areinterpretation of this exam may alter care of Patient. Yes TECHNIQUE: MRI of the brain performed prior to and following intravenous administration of 20 mL Magnevist. MRA [place] performed withoutthe use of intravenous contrast. MRA of the neck performed prior to andfollowing intravenous administration of 20 mL Magnevist. [facility] COMPARISON: CT 01/24/2015, carotid ultrasound 01/24/2015 FINDINGS: MRI brain: A rim-enhancing lesion with extensive surrounding edema ispresent in the superior aspect of the right precentral gyrus. The lesion demonstratesa T2 hypointense rim, and has centrally restricted diffusion within it. Thereis localized mass effect and sulcal effacement. The ventricles remain normalin size and contour. There is no other area of abnormal enhancement, orrestricted diffusion. MRA [place]: Intracranial internal carotid arteries are normalin caliber bilaterally. MCA, HARRY, and visualized branches are normal. Thereis relatively poor flow related enhancement of a portion of the intradural vertebral artery. The left intradural vertebral artery is normal. Basilarartery is normal in caliber. Posterior cerebral arteries are unremarkable. MRA neck: 2-D [id number] images demonstrate normal antegrade flow inthe carotid arteries and in the left vertebral artery. There is poor flowrelated enhancement of the right vertebral artery. There is a common origin of theright brachiocephalic and left common carotid artery. Common carotid arteryarteries are normal in caliber. There is minimal narrowing of the ICA at thecarotid bifurcation bilaterally due to atherosclerotic plaque. Cervical ICAs are otherwise normal in caliber. There appears to be mild narrowing at theleft vertebral origin. Cervical left vertebral artery is otherwise normal incaliber throughout. There are irregular areas of narrowing of the cervical right vertebral artery, and the superior cervical and intradural portions donot appear to be opacified. The proximal intradural portion between the PICAorigin and confluence of the basilar is opacified, and this may be fillingretrograde. IMPRESSION IMPRESSION: 1. Posterior right frontal rim-enhancing lesion. Imaging characteristicsare strongly suggestive of abscess. Metastatic neoplasm or primary glialneoplasm are considered to be less likely. 2. Minimal flow in the cervical right vertebral artery, which may beseverely stenotic or occluded. There appears to be retrograde flow from thebasilar confluence to the right PICA origin. 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 Given 01/31/2015 9:53 AM EST 2,000 mg 100 mL/hr dexamethasone (DECADRON) injection 4 mg 4 mg, Intravenous, EVERY 6 HOURS SCHEDULED, First dose on Fri01/27/15 at 1845, Until Discontinued Given 01/28/2015 5:18 PM EST 4 mg dexamethasone (DECADRON) tablet 4 mg 4 mg, Oral, EVERY 6 HOURS SCHEDULED, First dose on Fri01/27/15 at 1845, Until Discontinued, Routine Given 01/30/2015 4:43 AM EST 4 mg Given 01/29/2015 11:51 PM EST 4 mg Given 01/29/2015 4:37 PM EST 4 mg dexamethasone (DECADRON) tablet 4 mg 4 mg, Oral, 2 TIMES DAILY, First dose on Fri01/30/15 at 1400, Until Discontinued, Routine Given 01/31/2015 8:43 AM EST 4 mg Given 01/30/2015 2:08 PM EST 4 mg famotidine (PEPCID) tablet 20 mg 20 mg, Oral, EVERY 12 HOURS, First dose on Fri01/27/15 at 2200, Until Discontinued, Routine Given 01/31/2015 9:53 AM EST 20 mg Given 01/30/2015 9:00 PM EST 20 mg Given 01/30/2015 8:13 AM EST 20 mg gadobutrol (GADAVIST) 10 mmol/10 mL (1 mmol/mL) injection 9.8 mL 9.8 mL (0.1 mL/kg/dose ? 98 kg), Intravenous, ONCE PRN, 1 dose, Starting on Fri01/27/15 at 1543, Until Fri01/27/15 at 1542, Per Protocol, Routine Given 01/27/2015 3:42 PM EST 10 mL s insulin aspart (novoLOG) VIAL injection 1-4 Units 1-4 Units, Subcutaneous, 3 TIMES DAILY BEFORE MEALS, First dose on Fri01/27/15 at 2030, Until Discontinued, CORRECTION BOLUS Sensitive to insulin lean patient or total daily dose of all insulin needed to achieve glycemic control less than 30 units BG 140 - 160 Give 1 unit BG 161 - 200 Give 2 units BG 201 - 240 Give 3 units BG greater than 240, give 4 units and recheck BG in 2 hours. If BG remains greater than 240, repeat 4 units (no more than three times) & call for new basal insulin orders. If less than 240 after two hours, give no insulin and resume prior schedule. Given 01/30/2015 8:14 AM EST 2 Units Given 01/27/2015 9:04 PM EST 1 Units levETIRAcetam (KEPPRA) tablet 500 mg 500 mg, Oral, 2 TIMES DAILY, First dose on Fri01/27/15 at 2200, Until Discontinued, Routine Given 01/31/2015 8:43 AM EST 500 mg Given 01/30/2015 8:57 PM EST 500 mg Given 01/30/2015 8:13 AM EST 500 mg lisinopril (PRINIVIL;ZESTRIL) tablet 10 mg 10 mg, Oral, DAILY, First dose on Fri01/30/15 at 0900, Until Discontinued, Routine Given 01/31/2015 8:43 AM EST 10 mg MEROpenem (MERREM) 2 g in sodium chloride 0.9% 140 mL 2 g, Intravenous, EVERY 8 HOURS, First dose on Fri01/28/15 at 1500, Until Discontinued, Administer over 30 Minutes, 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, Restricted Antibiotic: Please indicate the most appropriate choice: ID Approval by Iraj Ferrer Given 01/31/2015 6:14 AM EST 2 g 280 mL/hr Given 01/30/2015 11:02 PM EST 2 g 280 mL/hr Given 01/30/2015 2:08 PM EST 2 g 280 mL/hr metroNIDAZOLE (FLAGYL) 500 mg in sodium chloride 0.9% 100 mL 500 mg, Intravenous, EVERY 8 HOURS, First dose on Fri01/27/15 at 1845, Until Discontinued, Administer over 30 Minutes, 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 Given 01/28/2015 10:29 AM EST 500 mg 200 mL/hr Given 01/28/2015 2:34 AM EST 500 mg 200 mL/hr Given 01/27/2015 7:00 PM EST 500 mg 200 mL/hr sodium chloride 0.9 % flush 5 mL 5 mL, Intravenous, 2 TIMES DAILY, First dose on Fri01/27/15 at 2100, Until Discontinued, Recovery (Recovery-Hospital Unit), Routine Given 01/29/2015 9:03 PM EST 5 mLs Given 01/29/2015 8:13 AM EST 5 mLs Given 01/28/2015 9:12 PM EST 5 mLs sodium chloride 0.9% with potassium chloride 20 mEq infusion 75 mL/hr, Intravenous, CONTINUOUS, Starting on Fri01/27/15 at 1845, Until Fri01/28/15 at 1358, Recovery (Recovery-Hospital Unit) New Bag 01/27/2015 6:53 PM EST 75 mL/hr 75 mL/ hr vancomycin (VANCOCIN) 1,750 mg in sodium chloride 0.9% 285 mL 1,750 mg (1.75 g), Intravenous, at 162.9 mL/hr, EVERY 12 HOURS, First dose (after last reorder) on Fri01/28/15 at 0500, Until Discontinued, Maximum infusion rate is 1 gram/hour. If flushing of the face, neck, upper body, arms, and/or back occurs decrease infusion rate by 50% to reduce the severity of symptoms. This medication may have an associated drug lab level. Please see MAR for scheduled level., Routine Given 01/29/2015 6:19 AM EST 1,750 mg 162.9 mL/hr Given 01/28/2015 5:19 PM EST 1,750 mg 162.9 mL/hr Given 01/28/2015 5:06 AM EST 1,750 mg 162.9 mL/hr vancomycin 1 g in dextrose 5% 200 mL 1,000 mg (1 g), Intravenous, EVERY 12 HOURS, First dose on Fri01/30/15 at 0400, Until Discontinued, Maximum infusion rate is 1 gram/hour. If flushing of the face, neck, upper body, arms, and/or back occurs decrease infusion rate by 50% to reduce the severity of symptoms. This medication may have an associated drug lab level. Please see MAR for scheduled level., Routine Given 01/31/2015 4:57 AM EST 1,000 mg Given 01/30/2015 3:27 PM EST 1,000 mg Given 01/30/2015 4:44 AM EST 1,000 mg documented in this encounter Active and Recently Administered Medications Times are shown in EST. 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 0953 (Given - Provider: Faby Singh RN) dexamethasone (DECADRON) tablet 4 mg (CANCELED)(Linked Group 1) 4 mg, Oral, EVERY 6 HOURS SCHEDULED, First dose on Fri01/27/15 at 1845, Until Discontinued, Routine 0033 (Given - Provider: Abena Berry RN)0519 (Given - Provider: Abena Berry RN)1026 (Given - Provider: So Martinez RN)1637 (Given - Provider: So Martinez RN)2351 (Given - Provider: Kyung Chang, MORIAH) 0443 (Given - Provider: Kyung Chang RN) dexamethasone (DECADRON) tablet 4 mg 4 mg, Oral, 2 TIMES DAILY, First dose on Fri01/30/15 at 1400, Until Discontinued, Routine 1408 (Given - Provider: Faby Singh RN) 0843 (Given - Provider: Faby Singh RN) famotidine (PEPCID) tablet 20 mg(Linked Group 2) 20 mg, Oral, EVERY 12 HOURS, First dose on Fri01/27/15 at 2200, Until Discontinued, Routine 1026 (Given - Provider: So Martinez RN)2101 (Given - Provider: Jimbo Sage RN) 0813 (Given - Provider: Faby Singh RN)1000 (Canceled Entry - Provider: Faby Singh RN - Reason: See comment - Comment: scheduled for 9AM)2100 (Given - Provider: Kyung Chang RN) 0953 (Given - Provider: Faby Singh RN) insulin aspart (novoLOG) VIAL injection 1-4 Units (CANCELED)(Linked Group 3) 1-4 Units, Subcutaneous, 3 TIMES DAILY BEFORE MEALS, First dose on Fri01/27/15 at 2030, Until Discontinued, CORRECTION BOLUS Sensitive to insulin lean patient or total daily dose of all insulin needed to achieve glycemic control less than 30 units BG 140 - 160 Give 1 unit BG 161 - 200 Give 2 units BG 201 - 240 Give 3 units BG greater than 240, give 4 units and recheck BG in 2 hours. If BG remains greater than 240, repeat 4 units (no more than three times) & call for new basal insulin orders. If less than 240 after two hours, give no insulin and resume prior schedule. 0730 (Not Given - Provider: So Martinez RN - Reason: See comment - Comment: FS [id number])1130 (Not Given - Provider: So Martinez RN - Reason: See comment - Comment: Fs)1630 (Not Given - Provider: So Martinez RN - Reason: See comment - Comment: FS [phone]) 0814 (Given - Provider: Faby Singh RN)1130 (Not Given - Provider: Faby Singh RN - Reason: Order parameters not met)1630 (Not Given - Provider: Faby Singh RN - Reason: Order parameters not met) 0706 (Not Given - Provider: Kyung Chang RN - Reason: Order parameters not met)1130 (Not Given - Provider: Faby Singh RN - Reason: Order parameters not met) levETIRAcetam (KEPPRA) tablet 500 mg(Linked Group 4) 500 mg, Oral, 2 TIMES DAILY, First dose on Fri01/27/15 at 2200, Until Discontinued, Routine 0813 (Given - Provider: So Martinez RN)2100 (Given - Provider: Jimbo Sage RN) 08 (Given - Provider: Faby Singh RN)2056 (Given - Provider: Kyung Chang RN) 0843 (Given - Provider: Faby Singh RN) lisinopril (PRINIVIL;ZESTRIL) tablet 10 mg (CANCELED) 10 mg, Oral, DAILY, First dose on Fri01/30/15 at 0900, Until Discontinued, Routine 0900 (Not Given - Provider: Faby Singh RN - Reason: Medication not available) 0843 (Given - Provider: Faby Singh RN) MEROpenem (MERREM) 2 g in sodium chloride 0.9% 140 mL (CANCELED) 2 g, Intravenous, EVERY 8 HOURS, First dose on Fri01/28/15 at 1500, Until Discontinued, Administer over 30 Minutes, 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, Restricted Antibiotic: Please indicate the most appropriate choice: ID Approval by Iraj Ferrer [id number] (Given - Provider: Abena Berry RN)0813 (Given - Provider: So Martinez RN)1454 (Given - Provider: So Martinez RN)2351 (Given - Provider: Kyung Chang RN) 0605 (Given - Provider: Kyung Chang RN)1408 (Given - Provider: Faby Singh RN)2302 (Given - Provider: Kyung Chang RN) 0614 (Given - Provider: Kyung Chang RN) sodium chloride 0.9 % flush 5 mL (CANCELED) 5 mL, Intravenous, 2 TIMES DAILY, First dose on Fri01/27/15 at 2100, Until Discontinued, Recovery (Recovery-Hospital Unit), Routine 08 (Given - Provider: So Martinez RN)210 (Given - Provider: Jimbo Sage RN) vancomycin (VANCOCIN) 1,750 mg in sodium chloride 0.9% 285 mL (CANCELED)(Linked Group 5) 1,750 mg (1.75 g), Intravenous, at 162.9 mL/hr, EVERY 12 HOURS, First dose (after last reorder) on Fri01/28/15 at 0500, Until Discontinued, Maximum infusion rate is 1 gram/hour. If flushing of the face, neck, upper body, arms, and/or back occurs decrease infusion rate by 50% to reduce the severity of symptoms. This medication may have an associated drug lab level. Please see MAR for scheduled level., Routine 0619 (Given - Provider: Abena Berry RN)1710 (Not Given - Provider: So Martinez RN - Reason: See comment - Comment: held per Dr. Orellana. Vanco trough is 30.5.) vancomycin 1 g in dextrose 5% 200 mL (CANCELED) 1,000 mg (1 g), Intravenous, EVERY 12 HOURS, First dose on Fri01/30/15 at 0400, Until Discontinued, Maximum infusion rate is 1 gram/hour. If flushing of the face, neck, upper body, arms, and/or back occurs decrease infusion rate by 50% to reduce the severity of symptoms. This medication may have an associated drug lab level. Please see MAR for scheduled level., Routine 0444 (Given - Provider: Kyung Chang RN)1527 (Given - Provider: Faby Singh RN) 0457 (Given - Provider: Kyung Chang RN) PRN Medication Order 01/29/2015 01/30/2015 01/31/2015 acetaminophen (TYLENOL) tablet 650 mg(Linked Group 6) 650 mg, Oral, EVERY 4 HOURS PRN, Starting on Fri01/27/15 at 1938, Until Fri01/31/15 at 1509, Pain, mild pain, May repeat once in 30 minutes if desired effect not acheived, Routine Linked Groups Order Group 1: dexamethasone (DECADRON) injection 4 mg (CANCELED) 4 mg, Intravenous, EVERY 6 HOURS SCHEDULED, First dose on Fri01/27/15 at 1845, Until Discontinued Or dexamethasone (DECADRON) tablet 4 mg (CANCELED)Jump to med 4 mg, Oral, EVERY 6 HOURS SCHEDULED, First dose on Fri01/27/15 at 1845, Until Discontinued, Routine Group 2: famotidine (PEPCID) tablet 20 mgJump to med 20 mg, Oral, EVERY 12 HOURS, First dose on Fri01/27/15 at 2200, Until Discontinued, Routine Or famotidine (PEPCID) injection 20 mg (CANCELED) 20 mg, Intravenous, EVERY 12 HOURS, First dose on Fri01/27/15 at 2200, Until Discontinued Group 3: POCT Fingerstick Glucose (CANCELED) Routine, 4 TIMES DAILY BEFORE MEALS & AT BEDTIME, First occurrence on Fri01/27/15 at 2200, Until Specified, Consider choosing FOUR TIMES A DAY BEFORE MEALS AND AT BEDTIME as frequency for: Patients who have a good hypoglycemia awareness And insulin aspart (novoLOG) VIAL injection 1-4 Units (CANCELED)Jump to med 1-4 Units, Subcutaneous, 3 TIMES DAILY BEFORE MEALS, First dose on Fri01/27/15 at 2030, Until Discontinued, CORRECTION BOLUS Sensitive to insulin lean patient or total daily dose of all insulin needed to achieve glycemic control less than 30 units BG 140 - 160 Give 1 unit BG 161 - 200 Give 2 units BG 201 - 240 Give 3 units BG greater than 240, give 4 units and recheck BG in 2 hours. If BG remains greater than 240, repeat 4 units (no more than three times) & call for new basal insulin orders. If less than 240 after two hours, give no insulin and resume prior schedule. Group 4: levETIRAcetam (KEPPRA) tablet 500 mgJump to med 500 mg, Oral, 2 TIMES DAILY, First dose on Fri01/27/15 at 2200, Until Discontinued, Routine Or levETIRAcetam (KEPPRA) 500 mg in sodium chloride 0.82% 100 mL (CANCELED) 500 mg, Intravenous, 2 TIMES DAILY, First dose on Fri01/27/15 at 2200, Until Discontinued, Routine Group 5: vancomycin (VANCOCIN) 1,750 mg in sodium chloride 0.9% 285 mL (CANCELED)Jump to med 1,750 mg (1.75 g), Intravenous, at 162.9 mL/hr, EVERY 12 HOURS, First dose (after last reorder) on 01/28/15 at 0500, Until Discontinued, Maximum infusion rate is 1 gram/hour. If flushing of the face, neck, upper body, arms, and/or back occurs decrease infusion rate by 50% to reduce the severity of symptoms. This medication may have an associated drug lab level. Please see MAR for scheduled level., Routine And Vancomycin, trough (CANCELED) New collection, Timed, PRN, Starting on Fri01/27/15 at 2026, Until Specified And Vancomycin Level - MAR Order Reminder (CANCELED) NOT APPLICABLE, PER PHARMACY, Other, Starting on Fri01/27/15 at 2026, Until Fri01/31/15 at 0824, This alert will be scheduled by a pharmacist after order placement. This order is a reminder to nursing staff to release and draw the PRN drug level at the specified time. It may be necessary to contact phlebotomy 60 minutes prior to the scheduled due time to assure a timely blood draw. Group 6: acetaminophen (TYLENOL) tablet 650 mgJump to med 650 mg, Oral, EVERY 4 HOURS PRN, Starting on Fri01/27/15 at 1938, Until Tu01/31/15 at 1509, Pain, mild pain, May repeat once in 30 minutes if desired effect not acheived, Routine Or acetaminophen (TYLENOL) suppository 650 mg (CANCELED) 650 mg, Rectal, EVERY 4 HOURS PRN, Starting on Fri01/27/15 at 1938, Until Fri01/30/15 at 0828, Pain, mild pain, May repeat once in 30 minutes if desired effects not achieved, Routine documented in this encounter Care Teams Dials Inspector Relationship Specialty Start Date End Date Mirna Orosco MD [address] [place] [address] PCP - General 01/27/15 06/30/18 documented as of this encounter
--- OUTSIDE RECORDS SUMMARY | 2024-07-21 19:33 | XMS_ITS | Encounter Summary ---
Author Organization [facility] [place] [address] Care Team Providers Care Payroll Auditor Name Role Phone Camacho Irwin MD Primary Care Provider [phone] Encounter Details Date Type Department Care Team (Late st Contact Info) Description 01/26/2015 Orders [place] [address] Jose Small MD [facility] [place] [place] [address] Social History Tobacco Use Types Packs/Day Years [...] AM EDT Office Visit Cardiology at [address] [place] [id number] Gonzales Torres MD [facility] [place] [address] documented as of this encounter Visit Diagnoses Not on filedocumented in this encounter Care Teams Payroll Auditor Relationship Specialty Start Date End Date Camacho Irwin MD [address] [place] [address] PCP - General 01/27/15 06/30/18 documented as of this encounter
--- OUTSIDE RECORDS SUMMARY | 2024-07-21 19:33 | XMS_ITS | Encounter Summary ---
[place] [address] Care Team Providers Care Perl Developer Name Role Phone Mirna Orosco MD Primary Care Provider [phone] Reason for Visit * Reason Comments Extremity Weakness Encounter Details Date Type Department Care Team (Late st Contact Info) Description 01/27/2015 3:00 PM EST - 01/27/2015 9:55 PM EST [place] [phone] Jose Santiago MD [facility] [place] [address] @STEREOTACTIC BX,ASP, OR EXC.-INTRACRANIAL LESION, W/SCAN (WRVU 18.79) Social History Tobacco Use Types Packs/Day Years [...] schedule, please call the nurse practitioner at [phone] or your Neurosurgeon. [X] Pepcid You are [...] appointment with Neurosurgery Shower/Bath: [place] Wound Care: [place] out 2 weeks after surgery - on [...] Nurse (Latisha Parra) Inpatient Nurses Neurosurgical Resident Social Services Director (after 5pm or before 8am) Neurosurgery offices (between 8am-5pm): Dr. Santiago Dr. Ceron (pediatric neurosurgery) Dr. Tello: Pediatric Patients , Adult Patients Dr. Forrester Dr. Delgado Dr. Galvez Dr. Interiano Juaquin Madera, Physician Drum Stock Clerk Sharlene Lorenzana, Nurse Practitioner Juaquin Short, Physician Drum Stock Clerk Kisha Teixeira, Nurse Practitioner CC: MIRNA OROSCO [...] on MRI, being discharged this afternoon to [facility] with transportation provided by his [...] 01/28. No redness, drainage, or tenderness at Topping-hole incisions. Mr. Milton has demonstrated appropriate use of Front-wheel walker and is cognizant of his need for assistance when ambulating/ transferring out of bed. His neurological status, vital signs, and blood sugar have been closely monitored throughout his admission and are stable for discharge as per [facility] p olicy and criteria. Discharge summary, medication list, and insurance information all sent with patient in packet, reviewed with patient and to pass information along once arriving at rehab. Pt wheeled to [facility] with all personal belongings and assisted into vehicle safely. * Eber Solis RN - 01/31/2015 11:16 AM EST Patient Name: Mirna Milton Patient Age: 69 y.o. Birthdate: 1945 Admit date: 01/27/2015 Attending Physician: Jose Santiago MD Office of Care Management Clinical Longwall Headgate Operator (CRC) Jacquie Solis RN, BSN -CRC NeuroSurgery Voice Mail [phone] Pager [phone] DISCHARGE NOTE: ROOM: [facility] ATTENDING: Jose Santiago MD Reason for Hospitalization: Brain abscess, biopsy and IV abx Patient is medically ready for d/c. Patient has been offered a bed at [facility]. Family and patient are aware and agree with the plans. Patient will be transported via private transportation. P: Plan for transfer to SNF Level rehab bed. Will continue to be available should additional needs arise. * Thuy Aguilar - 01/31/2015 11:01 AM EST Office of Care Management/Waitangi Tribunal Member Patient Name: Mirna Milton : 1945 Patient has been offered a SNF bed at [facility]. family arranged for a 1:00 transport. No MD to MD report necessary. Please call Nursing Report to [phone] ask for jay Wood, coil connector. Info to accompany patient: Narcotic Prescriptions Copies of Medication Administration Records and IV sheets for past 10 days. Plan: Wait[place] Tribunal Member will be available to the patient and CRC for further assistance. Patient will be discharged to: [place] [address] Roxy Sanchez * Evelio Correa MD - 01/31/2015 6:12 [...] 5/5 triceps, 2/5 deltoids, 2/5 trap, 5/5 neuro intensivist physician LUE:5/5 RLE: 5/5 LLE: 5/5 -Sensation intact [...] suspicious for metastasis so was transferred to [facility] for definitive management.At [facility] neurosurgery eval s/p OR with stereotactic [...] Gaudencio Mata MD Infectious Disease fellow Pager [phone] ID Attending I interviewed and examined the [...] about the nature of his infection.. * Jojo Turner - 01/30/2015 1:21 PM EST Occupational Therapy [...] interventions: 25 minutes functional there ex Pager: [phone] KAITLYN Barron 01/30/2015 Occupational Therapy Rehabilitation Department [...] with his . Pt is retired from [employer]. is available, has a flexible schedule (sells [...] interventions: 25 minutes-functional mobility, neuro re-ed Pager: [phone] Yenifer Thakur PT Physical Therapy Rehabilitation Department [...] consulted in the interim. RIVERA Nelson * Ebre Solis RN - 01/30/2015 9:46 AM EST Patient Name: Mirna Milton Patient Age: 69 y.o. Birthdate: 1945 Admit date: 01/27/2015 Attending Physician: Jose Santiago MD Office of Care Management (OCM) / Clinical Longwall Headgate Operator (CRC)/ Initial Assessment Discussed patient with Provider [...] HEALTH /PRESCRIPTION COVERAGE: Medicare AB/ [place] [facility] REFERRAL: Available if needed. PRIMARY CARE PHYSICIAN: MIRNA OROSCO MD 4 [facility] [address] POTENTIAL DISCHARGE NEEDS: 69 y/o M s/p biopsy of brain abscess and on IV abx. PT evaluation shows patient would benefit for a short stay at rehab. Met with patient at bedside and he would like to make a referral with [facility] [address] [address] . Will ask RS to please [...] Intake/Output Summary (Last 24 hours) at 01/30/15 0621 Last data filed at 01/30/15 0605 Gross [...] 5/5 triceps, 2/5 deltoids, 2/5 trap, 5/5 neuro intensivist physician LUE:5/5 RLE: 5/5 LLE: 5/5 -Sensation intact [...] PM EST Clinical Pharmacist Note-Vanc Mirna Milton [id number] 1945 Mirna Milton is a 69 y.o. [...] have. Alternately, during off-hours you may call [phone] to contact a pharmacist. Tatiana Sahnkar PHARMD Pager [phone] * Burt Keller PT - 01/29/2015 5:28 PM EST Physical Therapy Treatment Note Visit #: 2 Patient Dx: Mirna Milton is a 69 y.o. male patient of Jose Degroot MD, admitted on 01/27/2015 from OSH for evaluation of brain mass. Pt s/p stereotactic biopsy. Social History: Patient lives with his . Pt is retired from [employer]. is available, has a flexible schedule (sells [...] and pt aware to call for staff forester assistance with all mobility. Staff Communication: Patient [...] Total timed interventions: 35 minutes-functional mobility. Pager: [phone] Burt Keller, LUIS MIGUEL Physical Therapy Rehabilitation Department * Jojo Turner [...] interventions: 38 minutes functional there ex Pager: [phone] KAITLYN Barron 01/29/2015 Occupational Therapy Rehabilitation Department * Elizabeth Orellana - 01/29/2015 8:09 AM EST NEUROSURGERY PROGRESS NOTE Mirna Haines Milton [id number] 1945 ID: 69 y.o. gentleman with brain abscess, POD 2 from stereotactic biopsy INTERVAL Hx: - No acute events - Switched to vanc/meropenem MEDICATIONS: Scheduled Meds: ??? Vancomycin Level - [facility] Order Reminder NOT APPLICABLE Once ??? MEROpenem [...] 5/5 triceps, 2/5 deltoids, 2/5 trap, 5/5 neuro intensivist physician LUE:5/5 RLE: 5/5 LLE: 5/5 No pronator [...] AM EST NEUROSURGERY PROGRESS NOTE Mirna Milton [id number] 1945 ID: 69 y.o. gentleman with brain [...] with potassium chloride 20 mEq 75 mL/hr (01/27/151852) ??? niCARdipine EXAM: Temp: [36 ??C (96.8 [...] 5/5 triceps, 2/5 deltoids, 2/5 trap, 5/5 neuro intensivist physician LUE:5/5 RLE: 5/5 LLE: 5/5 No pronator [...] IVF until good PO. Monitor lytes. Elizabeth Esteban [id number] documented in this encounter H&P Notes * Jeffery Kahn T - 01/27/2015 4:03 PM EST NEUROSURGERY ADMISSION NOTE CC: brain mass HPI: We have been asked by Dr. Damian of [facility] to see Mirna Milton, a 69 y/o right-handed male, for evaluation of a brain mass. The patient developed left lower extremity incoordination three days prior to admission. He was seen at [facility] where a head CT was performed and [...] including IVDU. He is retried from the [employer]. EXAM: AF. AVSS GEN:NAD NEURO:AA+Ox3 Spontaneous speech [...] have been asked by Dr. Damian of [facility] to see Mirna Milton, a 69 y/o right- handed male, for evaluation of a brain mass. The patient developed left lower extremity incoordination three days prior to admission. He was seen at [facility] where a head CT was performed and [...] including IVDU. He is retried from the [employer]. Hospital Course: Patient was taken to the [...] of abnormal enhancement, or restricted diffusion. MRA tolowa dee-ni' of Dick: Intracranial internal carotid arteries are normal in caliber bilaterally. MCA, HARRY, and visualized branches are normal. There is relatively poor flow related enhancement of a portion of the intradural vertebral artery. The left intradural vertebral artery is normal. Basilar artery is normal in caliber. Posterior cerebral arteries are unremarkable. MRA neck: 2-D [id number] images demonstrate normal antegrade flow in the [...] Data: None Discharge Conditions/Prognosis: Stable [facility] [place] [facility] [place] [place] Discharge Medications: Your Medications New Medications [...] schedule, please call the nurse practitioner at [phone] or your Neurosurgeon. [X] Pepcid You are [...] appointment with Neurosurgery Shower/Bath: [place] Wound Care: [place] out 2 weeks after surgery - on [...] Nurse (Latisha Parra) Inpatient Nurses Neurosurgical Resident Social Services Director (after 5pm or before 8am) Neurosurgery offices (between 8am-5pm): Dr. Santiago Dr. Ceron (pediatric neurosurgery) Dr. Tello: Pediatric Patients , Adult Patients Dr. Forrester Dr. Delgado Dr. Galvez Dr. Interiano Juaquin Madera, Physician Drum Stock Clerk Sharlene Lorenzana Nurse Practitioner Juaquin Short, Physician Drum Stock Clerk Kisha Teixeira Nurse Practitioner CC: MIRNA OROSCO MD Future Appointments and Orders Future Appointments Provider Department Dept Phone 01/31/2015 3:45 PM Echo Inpatient Add-On Non-Invasive Cardiology Lab [phone] 02/14/2015 11:30 AM Iraj Hernandez MD Infectious Disease [phone] 03/09/2015 10:30 AM Gaudencio Mata MD Infectious Disease [phone] Future Orders Complete By Expires OPAT: Order / Recommendation for Post Discharge IV Antibiotic Management [[id number] CPT(R)] As directed Process Instructions: If no progress note charted, please enter Clinical details in comments. Scheduling Instructions: Comments: Please Fax all results to: OPAT Program Infectious Disease Section [facility], [place] [address] FAX: Line care instructions per [facility] OPAT Program protocol. After hours, please contact the Infectious Disease Physician application performance engineer at . If this order was signed greater than 72 hours prior to [facility] discharge, please call to confirm the accuracy [...] APRN 01/31/2015 * Plan of Care - Kyung Chang RN - 01/31/2015 1:59 AM EST [...] needs. PLAN MOVING FORWARD: Expected d/c to [facility] when medically appropriate. TTE in AM. Continue toencourage mobilization/ strengthening. Monitor Nilo-hole incisions. INDIVIDUALIZED FALL PREVENTION: Assistance: 2-assist out of bed to bathroom, minimal assistance with ADLs. Supervision: Call light within reach, personal items at bedside. Surveillance: Purposeful hourly rounding, Bowen Wilcox. CPG OUTCOME EVALUATION: Goal: Fall Prevention-Safe Patient [...] promoted;nutrition promoted Goal: Discharge Needs Assessment 01/30/15 153 Discharge Needs Assessment Concerns to be Addressed [...] Human Response Clinical Practice Guideline (CPG) 01/30/15 153 Health Knowledge, Opportunity for Enhanced Physiological Related Risk Factors (Health Knowledge, Opportunity for Enhanced) new development in disease process Problem: Craniotomy/Craniectomy/Cranioplasty (Adult) Goal: Signs and symptoms of listed potential problems will be absent or manageable (reference (Craniotomy/Craniectomy/Cranioplasty (Adult)) CPG) 01/30/15 1044 Craniotomy/Craniectomy/Cranioplasty Problems Assessed (Craniotomy/Craniectomy/Cranioplasty) all Problems Present (Craniotomy/Craniectomy/Cranioplasty) none * Op Note - Ball, Jose A, MD - 01/30/2015 6:30 AM EST [facility] Operative Note Patient Name: Mirna Milton : [id number] MR#: [id number] Case Date: 01/27/2015 Surgeon: Surgeon(s) and Role: * Jose Santiago MD - Primary * Jeffery Kahn MD - Resident-Surgeon Dinh * Dustin Parker MD - Resident-Surgeon Chief Preoperative diagnosis: ABSCESS Postoperative diagnosis: ABSCESS Procedure(s): @STEREOTACTIC BX,ASP, OR EXC.-INTRACRANIAL LESION, W/SCAN STEREOTACTIC COMPUTER-ASSTD NAVIGATIONAL CRANIAL INTRADURAL Indications: The patient is a 69-year-old male transferred to [facility] for evaluation of a right frontal [...] obtained as well for neuronavigation with the [employer]. After coregistration was performed with the [employer] navigation system, the biopsy plan was then [...] then reflected away from the skull. A pathology laboratory aide was then used to create a nilo hole. The [employer] stereotactic biopsy kit was then opened and [...] Appropriate) 01/30/15 0216 Skin Integrity Impairment, Risk/Actual (Adult, Obstetrics) Skin [...] acute neurologic deterioration * Initial Assessments - Swapna Diane Zaki OT - 01/28/2015 5:04 PM EST Occupational Therapy Evaluation Patient profile: Mirna Milton is a 69 y.o. male patient of Jose Degroot MD, admitted on 01/27/2015 from OSH for evaluation of brain mass. Pt s/p stereotactic biopsy. PMH: Per MD H&P 01/27: His past medical history is [...] with his . Pt is retired from [employer]. is available, has a flexible schedule (sells [...] decreased strength of LUE and LLE ?? Connie landry sitting with assist to thread LUE into [...] interventions: 15 minutes functional there ex Pager: [phone] Diane Barcenas OT 01/28/2015 Occupational Therapy Rehabilitation [...] lesion ?metastasis so patient was transferred to [facility] for further care. At [facility] patient was evaluated by neurosurgery and review [...] Allergies Penicillins- facial swelling last received in 1950s Pertinent Medications: IV vancomycin metronidazole SoHx: EX smoker and ETOH use No recent travel, no drugs,No pets Lived in [place] all his life,no travel in the past [...] suspicious for metastasis so was transferred to [facility] for definitive management.At [facility] neurosurgery eval s/p OR with stereotactic [...] will continue to follow the patient,please page [phone] with questions Above recommendations were communicated with the primary team x Recommendations discussed with primary team. Consult service will continue to follow patient. Recommendations discussed with primary team. ID will sign off. Please page [phone] if further consultation required. Case discussed with ID attending Dr.Zuckerman Gaudencio Mata MD, Fellow, Infectious Disease Pager [phone] Attending Addendum: I have seen and examined [...] Ongoing (Interventions Implemented as Appropriate) 01/28/15 1521 Safety Interventions Safety Precautions/Fall Reduction assistive device;bed [...] Ongoing (Interventions Implemented as Appropriate) 01/28/15 1521 Coping/Psychosocial Response Interventions Counseling reassurance provided;verbalization of [...] acute neurologic deterioration * Initial Assessments - Russ Cliff, PT - 01/28/2015 11:21 AM EST Physical Therapy Neuro Evaluation I Patient profile (per OT note): Mirna Milton is a 69 y.o. male patient of Jose Degroot MD, admitted on 01/27/2015 from OSH for evaluation of brain mass. Pt s/p stereotactic biopsy. PMH: Per MD H&P 01/27: His past medical history is [...] with his . Pt is retired from [employer]. is available, has a flexible schedule (sells [...] and push walker forward; his elbow and neuro intensivist physician are strong, but shoulder is weak. He [...] needs: tbd Discharge Recommendations: Patient will require 24/ supervision and assistance. Patient would benefit and tolerate continued daily intensive therapy interventions to maximize functional independence. No other consults recommended at this time Total time spent with patient: 70 minutes Total timed interventions: 10 minutes Pager: [phone] Juaquin Solano, PT 01/28/2015 Physical Therapy Rehabilitation Department * Plan of Care - Stiven Poe LPN - 01/28/2015 10:09 AM EST Problem: Health Knowledge, Opportunity for Enhanced (Adult, NICU, [place], Obstetrics, Pediatric) Goal: Knowledgeable about Health Subject/Topic Patient will demonstrate the desired outcomes. Outcome: Outcome (s) achieved Date Met: 01/28/15 Peripherally Inserted Central Catheter (PICC) Teaching Sheet Peripherally inserted central catheters (sxox-jh-ggzd) (PICC) are used when you need IV [...] catheter? PICC lines are used for terminal system operator treatments. PICC lines may be used [...] can be set up via the nurse Server Cashier to help you. What are possible complications [...] Efficacy, Safety, Use, and Administration of [employer], [employer] 2005 * Plan of Care - [...] Operative Note Patient Name: Mirna Milton : [id number] MR#: [id number] Case Date: 01/27/2015 Surgeon: Surgeon(s) and Role: [...] AM EDT Office Visit Cardiology at [address] [place] [id number] Gonzales Torres MD [facility] [place] [address] Scheduled Orders Name Type Priority Associated Diagnoses Orde r Schedule Place PICC Line: Contact Vascular Access Page [phone] Procedures Routine One Time for 1 Occurrences [...] 2:46 AM EST DIFFERENTIAL, AUTOMATED Routine 01/28/20 2:46 AM EST CBC (WITH DIFF) Routine [...] * POCT Glucose (01/31/2015 11:40 AM EST) Glucose, POC 106 60 - 199 mg/dL [facility] Comment: Supplemental ranges: <140 mg/dL before meals <180 mg/dL all other times of the day Blood specimen (specimen) 01/31/2015 11:40 AM EST 01/31/2015 11:40 AM EST Jose Santiago MD POINT OF CARE TEST O RDERABLES [facility] * Echocardiogram Transthoracic(Leb) (01/31/2015 11:36 AM EST) EF 70 HEARTLAB SYSTEM Anatomical Region Laterality Modality Other 01/31/2015 Narrative 01/31/2015 12:30 PM EST Amended Report Procedure: ? Transthoracic Echocardiogram Patient: ? YOAN Haines ? (Age): 1945(69) Med Rec#: ?[id number] ? Sex: ?M ? Site Loc: ?[facility] ? Ht / Wt: ??188(cm)/98(kg) Pt. Loc: ? Adult Floor ?BSA: ?2.26 Study Date: ?01/31/2015 ? Pt. Type: Inpatient Tape: ?Epiq1 ? Referring: Jose Santiago Referring: ORLANDO DAMIAN Messenger Office: Olga Lidia Cevallos Diagnosis: ??Bacteremia (790.7) CPT Code(s): ??Echo Full (52487), ??Spectral Doppler (39897), ??Color Doppler (18222), Indication(s):Rhythm: Sinus HR ?BP ?148/74 ?? SUMMARY: [...] ? Mid-Inferior ?Normal ? Mid-Inferoseptal ?Normal ? Stanley-Septal ? Normal ? Stanley-Anterior ? Normal ? Stanley-Lateral ?Normal ? Stanley-Inferior ? Normal ? Stanley-Tip ?Normal ? Chambers ?Value ?Units (Range) ? [...] 01/31/2015 12:29:59 Images reviewed and interpretation verified [facility] Cardiac Ultrasound Laboratory Procedure Note Riley Huitron MD - 01/31/2015 Amended Report Procedure: Transthoracic Echocardiogram Patient: YOAN Haines DOB(Age): 1945(69) Med Rec#: [id number] Sex: M Site Loc: [facility] Ht / Wt: 188(cm)/98(kg) Pt. Loc: Adult Floor BSA: 2.26 Study Date: 01/31/2015 Pt. Type: Inpatient Tape: Epiq1 Referring: Jose Santiago Referring: ORLANDO DAMIAN Messenger Office: Olga Lidia Cevallos Diagnosis: Bacteremia (790.7) CPT Code(s): Echo Full (16726), Spectral Doppler (98199), Color Doppler (95044), Indication(s):Rhythm: Sinus HR BP 148/74 SUMMARY: 1. [...] Normal Mid-Posterolateral Normal Mid-Inferior Normal Mid-Inferoseptal Normal Stanley-Septal Normal Stanley-Anterior Normal Stanley-Lateral Normal Stanley-Inferior Normal Stanley-Tip Normal Chambers Value Units (Range) LV EF [...] 01/31/2015 12:29:59 Images reviewed and interpretation verified [facility] Cardiac Ultrasound Laboratory Jose Santiago MD ECHO ORDERABLES * POCT Glucose (01/31/2015 7:04 AM EST) Glucose, POC 98 60 - 199 mg/dL [facility] Comment: Supplemental ranges: <140 mg/dL before meals [...] Metabolic Panel (non-fasting) (01/31/2015 6:02 AM EST) [facility] Glucose 123 60 - 199 mg/dL [facility] Comment:Diabetes: >=200 mg/d L plus symptoms Blood Urea Nitrogen 24(H) 10 - 20 mg/dL [facility] MILLENNIUM Creatinine 0.76(L) 0.80 - 1.50 mg/dL [facility] Comment: Please note that the pediatric reference intervals supplied above were not validated at [facility]. Results from pediatric patients should be interpreted [...] the following links into your internet browser. http://[employer]/DHnkdep http://[employer]/DHMCnkf Blood specimen (specimen) 01/31/2015 6:02 AM EST 01/31/2015 6:06 AM EST Narrative Resulting Agency Comment Spec In Lab Jose Santiago MD CHEMISTRY ORDERABLES Performing Organization Address [facility] Phone Number [facility] * POCT Glucose (01/30/2015 4:23 PM EST) Glucose, POC 118 60 - 199 mg/dL [facility] Comment: Supplemental ranges: <140 mg/dL before meals <180 mg/dL all other times of the day Blood specimen (specimen) 01/30/2015 4:23 PM EST 01/30/2015 4:23 PM EST Jose Santiago MD POINT OF CARE TEST O RDERABLES Performing Organization Address [facility] Phone Number [facility] * POCT Glucose (01/30/2015 11:53 AM EST) Glucose, POC 101 60 - 199 mg/dL [facility] Comment: Supplemental ranges: <140 mg/dL before meals <180 mg/dL all other times of the day Blood specimen (specimen) 01/30/2015 11:53 AM EST 01/30/2015 11:53 AM EST Jose Santiago MD POINT OF CARE TEST O RDERABLES [facility] * Scan, Peripheral Blood (01/30/2015 10:08 AM EST) Plat estimate Normal [facility]ER MILLENNIUM RBC Morphology Normal CERNE R MILLENNIUM Blood specimen (specimen) 01/30/2015 10:08 AM EST 01/30/2015 10:16 AM EST Narrative Resulting Agency Comment Spec In Lab Jose Santiago MD HEMATOLOGY ORDERABLE S Performing Organization Address City/[facility]/ZIP Co de Phone Number CERNER MILLENNIUM * (ABNORMAL) Differential, [...] MD HEMATOLOGY ORDERABLE S Performing Organization Address City/[facility]/ZIP Co de Phone Number CERTONI MILLENNIUM * (ABNORMAL) Hemogram (01/30/2015 10:08 AM [...] MD HEMATOLOGY ORDERABLE S Performing Organization Address City/[facility]/ZIP Co de Phone Number KIMBERLYN ERVINIUM * (ABNORMAL) Basic Metabolic Panel (non-fasting) (01/30/2015 10:00 AM EST) Glucose 96 60 - 199 mg/dL [facility] Comment:Diabetes: >=200 mg/d L plus symptoms Blood Urea Nitrogen 24(H) 10 - 20 mg/dL [facility]ENNI[facility] Creatinine 0.72(L) 0.80 - 1.50 mg/dL [facility] Comment: Please note that the pediatric reference intervals supplied above were not validated at [facility]. Results from pediatric patients should be interpreted [...] the following links into your internet browser. http://[employer]/DHnkdep http://[employer]/DHMCnkf Blood specimen (specimen) 01/30/2015 10:00 AM EST 01/30/2015 10:16 AM EST Narrative Resulting Agency Comment Spec In Lab Jose Santiago MD [facility]Y [facility]ABLES [facility] * POCT Glucose (01/30/2015 8:09 AM EST) Glucose, POC 175 60 - 199 mg/dL [facility] Comment: Supplemental ranges: <140 mg/dL before meals <180 mg/dL all other times of the day Blood specimen (specimen) 01/30/2015 8:09 AM EST 01/30/2015 8:09 AM EST Jose Santiago MD POINT OF CARE TEST O IVY Performing Organization Address [facility] de Phone Number [facility] * (ABNORMAL) POCT Glucose (01/30/2015 8:07 AM EST) Glucose, POC 577(Critic al) 60 - 199 mg/dL [facility] Comment: Supplemental ranges: <140 mg/dL before meals <180 mg/dL all other times of the day Blood specimen (specimen) 01/30/2015 8:07 AM EST 01/30/2015 8:07 AM EST Jose Santiago MD POINT OF CARE TEST O IVY Performing Organization Address [facility] de Phone Number [facility] * POCT Glucose (01/29/2015 8:37 PM EST) Glucose, POC 121 60 - 199 mg/dL [facility] Comment: Supplemental ranges: <140 mg/dL before meals <180 mg/dL all other times of the day Blood specimen (specimen) 01/29/2015 8:37 PM EST 01/29/2015 8:37 PM EST Joes Santiago MD POINT OF CARE TEST O IVY Performing Organization Address [facility] de Phone Number [facility] * (ABNORMAL) Vancomycin, trough (01/29/2015 4:15 PM EST) Vancomycin, Trough 30.5(Crit ical) mg/L [facility] Comment: Called by: mariaelena, Read back by: [...] MD CHEMISTRY ORDERABLES Performing Organization Address [facility] Phone Number [facility] * POCT Glucose (01/29/2015 3:59 PM EST) Glucose, POC 117 60 - 199 mg/dL [facility] Comment: Supplemental ranges: <140 mg/dL before meals <180 mg/dL all other times of the day Blood specimen (specimen) 01/29/2015 3:59 PM EST 01/29/2015 3:59 PM EST Jose Santiago MD POINT OF CARE TEST O RDERAKEIRY Performing Organization Address [facility] Phone Number [facility] * POCT Glucose (01/29/2015 11:33 AM EST) Glucose, POC 117 60 - 199 mg/dL [facility] Comment: Supplemental ranges: <140 mg/dL before meals <180 mg/dL all other times of the day Blood specimen (specimen) 01/29/2015 11:33 AM EST 01/29/2015 11:33 AM EST Jose Santiago MD POINT OF CARE TEST O RDERAKEIRY Performing Organization Address [facility] Phone Number [facility] * POCT Glucose (01/29/2015 7:16 AM EST) Glucose, POC 131 60 - 199 mg/dL [facility] Comment: Supplemental ranges: <140 mg/dL before meals <180 mg/dL all other times of the day Blood specimen (specimen) 01/29/2015 7:16 AM EST 01/29/2015 7:16 AM EST Jose Santiago MD POINT OF CARE TEST O RDERABLES CERNER MILLENNIUM * (ABNORMAL) Differential, Automated (01/29/2015 5:34 AM [...] Metabolic Panel (non-fasting) (01/29/2015 5:34 AM EST) Pathologist [facility] Glucose 126 60 - 199 mg/dL CERNER MILLENNIUM Comment:Diabetes: >=200 mg/d L plus symptoms Blood Urea Nitrogen 21(H) 10 - 20 mg/dL CERNER MILLENNIUM Creatinine 0.77(L) 0.80 - 1.50 mg/dL CERNER MILLENNIUM Comment: Please note that the pediatric reference intervals supplied above were not validated at [facility]. Results from pediatric patients should be interpreted [...] the following links into your internet browser. http://[employer]/DHnkdep http://[employer]/DHMCnkf Blood specimen (specimen) 01/29/2015 5:34 AM EST 01/29/2015 5:57 AM EST Narrative Resulting Agency Comment Spec In Lab Jose Santiago MD CHEMISTRY ORDERABLES Performing Organization Address [facility] de Phone Number [facility] * POCT Glucose (01/28/2015 4:41 PM EST) [facility] Glucose, POC 118 60 - 199 mg/dL [facility] Comment: Supplemental ranges: <140 mg/dL before meals <180 mg/dL all other times of the day Blood specimen (specimen) 01/28/2015 4:41 PM EST 01/28/2015 4:41 PM EST Jose Santiago MD POINT OF CARE TEST O RDERABLES Performing Organization Address [facility] Co de Phone Number [facility] * POCT Glucose (01/28/2015 12:29 PM EST) Glucose, POC 118 60 - 199 mg/dL [facility] Comment: Supplemental ranges: <140 mg/dL before meals <180 mg/dL all other times of the day Blood specimen (specimen) 01/28/2015 12:29 PM EST 01/28/2015 12:29 PM EST Jose Santiago MD POINT OF CARE TEST O RDERABLES [facility] * XR VAS venous access (PICC placement) (01/28/2015 11:53 AM EST) Anatomical Region Laterality Modality N/A Radiographic Meagan ging 01/28/2015 11:5 3 AM EST Narrative 01/28/2015 12:00 PM EST EXAMINATION: PLACEMENT PICC LINE (IV TEAM) Over 5 yrs/XCARM CLINICAL HISTORY: brain mass access/abx ??4 south african 1 lumen ??no restrictions TECHNIQUE: C-arm placement of PICC. Limited view of the line tip only. FINDINGS: Intraprocedural frontal radiograph of the mediastinum demonstrates a Right PICC, with the catheter tip projected at the mid SVC. Procedure Note Yaima Monet MD - 01/28/2015 EXAMINATION: PLACEMENT PICC LINE (IV TEAM) Over 5 yrs/XCARM CLINICAL HISTORY: brain mass access/abx 4 south african 1 lumen norestrictions TECHNIQUE: C-arm placement of PICC. Limited view of the line tip only. FINDINGS: Intraprocedural frontal radiograph of the mediastinumdemonstrates a Right PICC, with the catheter tip projected at the mid SVC. Jose Santiago MD IMG FLUORO ORDERABLE S * POCT Glucose (01/28/2015 8:00 AM EST) Glucose, POC 124 60 - 199 mg/dL [facility] Comment: Supplemental ranges: <140 mg/dL before meals [...] Lab Jose Santiago MD HEMATOLOGY ORDERABLE S [facility] MILLENNIUM * (ABNORMAL) Basic Metabolic Panel (non-fasting) (01/28/2015 2:46 AM EST) [facility] Glucose 131 60 - 199 mg/dL CERNER MILLENNIUM Comment:Diabetes: >=200 mg/d L plus symptoms Blood Urea Nitrogen 21(H) 10 - 20 mg/dL CERNER MILLENNIUM Creatinine 0.86 0.80 - 1.50 mg/dL CERNER MILLENNIUM Comment: Please note that the pediatric reference intervals supplied above were not validated at [facility]. Results from pediatric patients should be interpreted [...] the following links into your internet browser. http://[employer]/DHnkdep http://[employer]/DHMCnkf Blood specimen (specimen) 01/28/2015 2:46 AM EST 01/28/2015 2:55 AM EST Narrative Resulting Agency Comment Spec In Lab Jose Santiago MD CHEMISTRY ORDERABLES Performing Organization Address [facility] de Phone Number [facility] * POCT Glucose (01/27/2015 8:44 PM EST) Glucose, POC 154 60 - 199 mg/dL [facility] Comment: Supplemental ranges: <140 mg/dL before meals <180 mg/dL all other times of the day Blood specimen (specimen) 01/27/2015 8:44 PM EST 01/27/2015 8:44 PM EST Jose Santiago MD POINT OF CARE TEST O RDERABLES Performing Organization Address [facility] de Phone Number [facility] * Pathology Addendum Report (01/27/2015 5:35 PM EST) Addendum Report ? [facility] ? Provider: ?? JOSE SANTIAGO ? Pt. Name: ?? MIRNA MILTON ? Acc #: ?[id number] ?Pt. ? Col Date: ?? 01/27/2015 ? [...] ? from the tissue. ? 02/02/15 ? [facility] ? 02/02/15 Verified by: ? Oswaldo HOOD, Jimbo Lyons ? Pathologist ? (Electronic Signature) ? The attending pathologist whose signature appears on this report has ? reviewed all diagnostic slides and has edited the gross and/or ? microscopic portion of the report in rendering the final pathologic ? diagnosis. KIMBERLYN BLACKWELL 01/27/2015 5:35 PM EST Jose Santiago MD PATHOLOGY/CYTOLOGY Daisy HAYNES KIMBERLYN BLACKWELL * Surgical Pathology Report (01/27/2015 5:35 PM EST) Final Diagnosis [id number] ? Location: [facility]; [facility]; A The signing pathologist has (i) examined [...] Streptococcus milleri cultured from the tissue. 02/02/15 [facility] 02/02/15 Verified by: ? Oswaldo HOOD, Jimbo Lyons [...] many bacterial colonies and fragments of inflamed/reactive [employer]NAGER parenchyma (B) Small fragments of brain parenchyma with reactive and inflammatory changes. (C) Small fragments of brain parenchyma with reactive and inflammatory changes. (D) Small fragments of brain parenchyma with reactive and inflammatory changes. (E) Pus containing many bacterial colonies and fragments of inflamed/reactive [employer]PERATIONS [employer]NAGER parenchyma 01/31/15 [facility] 01/31/15 Verified by: ? Jimbo Chacon MD ?Pathologist ?(Electronic Signature) The attending pathologist whose signature appears on this report has reviewed all diagnostic slides and has edited the gross and/or microscopic portion of the report in rendering the final pathologic diagnosis. Comment This pathological process is infectious, not neoplastic. ??It is a bacterial abscess from whic h Streptococcus milleri has been cultured. ??Special stains have been ordered to determine if other organisms may also be present; those results will be reported as an addendum, when available. 02/02/2015 12:57 PM EST [facility] BRAIN STRUCTURE / Unknown 01/27/2015 [...] PATHOLOGY/CYTOLOGY O IVY Performing Organization Address [facility] [place] [address] * Specimen to Pathology (surgical or derm) (01/27/2015 5:35 PM EST) AP Specimen 01/27/2015 5:35 PM EST 01/27/2015 5:35 PM EST Narrative [facility]IMBER[facility]N [facility] - 01/27/2015 5:35 PM EST Specimen requisition ordered. ??Separate Pathology report to follow Jose Santiago MD PATHOLOGY/CYTOLOGY O IVY Performing Organization Address [facility] de Phone Number [facility] * Specimen to Pathology (surgical or derm) (01/27/2015 5:35 PM EST) AP Specimen 01/27/2015 5:35 PM EST 01/27/2015 5:35 PM EST Narrative [facility] - 01/27/2015 5:35 PM EST Specimen requisition ordered. ??Separate Pathology report to follow Jose Santiago MD PATHOLOGY/CYTOLOGY O IVY Performing Organization Address [facility] Co de Phone Number [facility] * Specimen to Pathology (surgical or derm) (01/27/2015 5:35 PM EST) AP Specimen 01/27/2015 5:35 PM EST 01/27/2015 5:35 PM EST Narrative [facility] - 01/27/2015 5:35 PM EST Specimen requisition ordered. ??Separate Pathology report to follow Jose Santiago MD PATHOLOGY/CYTOLOGY O IVY Performing Organization Address [facility] de Phone Number [facility] * Specimen to Pathology (surgical or derm) (01/27/2015 5:35 PM EST) AP Specimen 01/27/2015 5:35 PM EST 01/27/2015 5:35 PM EST Narrative [facility] - 01/27/2015 5:35 PM EST Specimen requisition ordered. ??Separate Pathology report to follow Jose Santiago MD PATHOLOGY/CYTOLOGY O IVY Performing Organization Address [facility] de Phone Number [facility] * Specimen to Pathology (surgical or derm) (01/27/2015 5:35 PM EST) AP Specimen 01/27/2015 5:35 PM EST 01/27/2015 5:35 PM EST Narrative [facility] - 01/27/2015 5:35 PM EST Specimen requisition ordered. ??Separate Pathology report to follow Jose Santiago MD PATHOLOGY/CYTOLOGY O IVY Performing Organization Address [facility] de Phone Number [facility] * Anaerobic Culture (01/27/2015 5:25 PM EST) Anaerobic Culture ? Patient Name: MIRNA MILTON ?Ordered By: JOSE SANTIAGO ? MR#: [id number] ?LOC: ??5WST ? /Sex: ??1945 (69 years), [...] MILLENNIUM Specimen of unknown material (specimen) 01/27/2015 5:25 PM EST 01/27/2015 5:38 PM EST Comment:? ABSCESS VS TUMOR Narrative Resulting Agency Comment Spec In Lab Jose Santiago MD MICROBIOLOGY - GENER AL ORDERABLES [facility] * Tissue culture (01/27/2015 5:25 PM EST) Tissue Culture ? Patient Name: MIRNA MILTON ?Ordered By: JOSE SANTIAGO ? MR#: [id number] ?LOC: ??5WST ? /Sex: ??1945 (69 years), [...] ble ? Patient: MIRNA MILTON ? MR#: [id number] ? FOOTNOTES ? (1) ? Penicillin susceptible Streptococci species can be considered susceptible ? to Ampicillin, ? Ampicillin-Sulbac singer, Amoxicillin, Amoxicillin-Clavu lanate, Ceftriaxone and ? Meropenem. ? KIMBERLYN BLACKWELL Specimen of unknown material (specimen) 01/27/2015 5:25 PM EST 01/27/2015 5:38 PM EST Comment:? ABSCESS VS TUMOR Narrative Resulting Agency Comment Spec In Lab Jose Santiago MD MICROBIOLOGY - GENER AL ORDERABLES [facility] * Anaerobic Culture (01/27/2015 5:18 PM EST) Anaerobic Culture ? Patient Name: MIRNA MILTON ?Ordered By: JOSE SANTIAGO ? MR#: [id number] ?LOC: ??5WST ? /Sex: ??1945 (69 years), [...] Santiago MD MICROBIOLOGY - GENER AL ORDERABLES [facility] * Tissue culture (01/27/2015 5:18 PM EST) Tissue Culture ? Patient Name: MIRNA MILTON ?Ordered By: JOSE SANTIAGO ? MR#: [id number] ?LOC: ??5WST ? /Sex: ??1945 (69 years), [...] group ? Susceptibilities previously reported ? CERNER MILLENNIUM Specimen of unknown material (specimen) 01/27/2015 5:18 PM EST 01/27/2015 5:59 PM EST Comment:ABSCESS VS TUMOR #3 Narrative Resulting Agency Comment Spec In Lab Jose Santiago MD MICROBIOLOGY - GENER AL ORDERABLES [facility] * Anaerobic Culture (01/27/2015 5:18 PM EST) Anaerobic Culture ? Patient Name: MIRNA MILTON ?Ordered By: JOSE SANTIAGO ? MR#: [id number] ?LOC: ??5WST ? /Sex: ??1945 (69 years), ? Male ? PROCEDURE: Anaerobic Culture ?SOURCE: Other ? COLLECTED: 01/27/2015 17:18 ?FREE TEXT SOURCE: Abscess vs Tumor #2 ? STARTED: 01/27/2015 17:59 ? FINAL REPORT ? Final Report ? Verified:2014 13:14 ? No anaerobic organisms isolated ? PRELIMINARY REPORT ? Preliminary Report ? Verified:2014 12:58 ? No anaerobic organisms isolated to date ? [facility] Specimen of unknown material (specimen) 01/27/2015 5:18 PM EST 01/27/2015 5:59 PM EST Comment:ABSCESS VS TUMOR #2 Narrative Resulting Agency Comment Spec In Lab Jose Santiago MD MICROBIOLOGY - GENER AL ORDERABLES [facility] * Tissue culture (01/27/2015 5:18 PM EST) Tissue Culture ? Patient Name: MIRNA MILTON ?Ordered By: JOSE SANTIAGO ? MR#: [id number] ?LOC: ??5WST ? /Sex: ??1945 (69 years), [...] group ? Susceptibilities previously reported ? KIMBERLYN SPENCERENNIUM Specimen of unknown material (specimen) 01/27/2015 5:18 PM EST 01/27/2015 5:59 PM EST Comment:ABSCESS VS TUMOR #2 Narrative Resulting Agency Comment Spec In Lab Jose Santiago MD MICROBIOLOGY - GENER AL ORDERABLES KIMBERLYN BLACKWELL * MRI brain with contrast [...] Urine Dipstick Hazy(A) Clear CERNER MILLENNIUM Specific Lane Urine Automated 1.026 1.002 - 1.030 CERNER MILLENNIUM Color, Urine Dipstick Yellow Yellow CERNER MILLENNIUM RBC, Urine 1 0 - 3 /HPF CERNER MILLENNIUM WBC, Urine 1 0 - 3 /HPF CERNER MILLENNIUM Bacteria, Urine Moderate(A) None /HPF CE RNER MILLENNIUM Urine specimen (specimen) 01/27/2015 3:23 PM EST 01/27/2015 4:25 PM EST Narrative Resulting Agency Comment Spec In Lab Jose Santiago MD URINE ORDERABLES CERNER MILLENNIUM * Urine culture Clean Catch Urine (01/27/2015 3:22 PM EST) Urine Culture ? Patient Name: MIRNA MILTON ?Ordered By: JOSE SANTIAGO ? MR#: [id number] ?LOC: ??5[facility]ST ? /Sex: ??[birth year] (69 years), ? Male ? PROCEDURE: Urine Culture ?SOURCE: U CC ? COLLECTED: 01/27/2015 15:22 ? STARTED: 01/27/2015 16:34 ? FINAL REPORT ? Final Report ? Verified: 15:25 ? No growth (Less than 1,000 cfu/ml). ? ____ KIMBERLYN BLACKWELL Urine specimen obtained by clean catch procedure (specimen) 01/27/2015 3:22 PM EST 01/27/2015 4:34 PM EST Narrative Resulting Agency Comment Spec In Lab Jose Santiago MD MICROBIOLOGY - GENER AL ORDERABLES Performing Organization Address City/State/[facility] Co de Phone Number KIMBERLYN BLACKWELL * Prepare Platelets, Apheresis (01/27/2015 2:50 PM EST) Dispensed? Yes KIMBERLYN BLACKWELL Blood specimen (specimen) 01/27/2015 2:50 PM EST 01/27/2015 2:50 PM EST Jose Santiago MD BLOOD BANK PRODUCT O RDERABLES [facility] * Blood culture (01/27/2015 2:45 PM EST) Blood Culture ? Patient Name: IMRNA MILTON ?Ordered By: OJSE SANTIAGO ? MR#: [id number] ?LOC: ??5WST ? /Sex: ??1945 (69 years), [...] ? No growth at 4 days. ? KIMBERLYN BLACKWELL Blood specimen (specimen) ANTECUBITAL REGION STRUCTURE / Unknown 01/27/2015 2:45 PM EST 01/27/2015 3:02 PM EST Comment:#2 Narrative Resulting Agency Comment Spec In Lab Jose Santiago MD MICROBIOLOGY - BLOOD ORDERABLES CERTONI MILLENNIUM * Scanlon Hold (01/27/2015 2:40 PM EST) Scanlon Hold Sample in lab. CERNER MILLENNIUM Blood specimen (specimen) Venous Draw / Unknown 01/27/2015 2:40 PM EST 01/27/2015 2:55 PM EST Jose Santiago MD CHEMISTRY ORDERABLES CERTONI SPENCERENNIUM * (ABNORMAL) Differential, Automated (01/27/2015 2:40 PM [...] ORDERABLE S CERNER MILLENNIUM * (ABNORMAL) Hemogram (01/27/2015 2:40 PM [...] Lab Jose Santiago MD HEMATOLOGY ORDERABLE S CERTONI MILLENNIUM * Antibody screen (01/27/2015 2:40 PM EST) Ab Screen Interp Negative CERNER MILLENNIUM Expires at [id number] on: [id number] CERNER MILLENNIUM Blood specimen (specimen) 01/27/2015 2:40 PM EST 01/27/2015 2:51 PM EST Narrative Resulting Agency Comment Spec In Lab Jose Santiago MD BLOOD BANK LAB ORDER PARK [facility] * ABO/Rh Typing (01/27/2015 2:40 PM EST) ABORH Type A Neg CERNER MILLENNIUM Blood specimen (specimen) 01/27/2015 2:40 PM EST 01/27/2015 2:51 PM EST Narrative Resulting Agency Comment Spec In Lab Jose Santiago MD BLOOD BANK LAB ORDER PARK Performing Organization Address [facility]/ZIP Co de Phone Number [facility] * Sedimentation rate (01/27/2015 2:40 PM EST) Sedimentation Rate Automated 11 0 - 15 mm/hr [facility] MILLENNIUM Blood specimen (specimen) 01/27/2015 2:40 PM EST 01/27/2015 2:54 PM EST Narrative Resulting Agency Comment Spec In Lab Jose Santiago MD HEMATOLOGY ORDERABLE S Performing Organization Address [facility] Co de Phone Number [facility] * High Sensitivity CRP (01/27/2015 2:40 PM EST) C-Reactive Protein High Sensitivity 7.3 mg/L [facility] Comment: Interpretations: 1) For accurate [...] Santiago MD CHEMISTRY ORDERABLES Performing Organization Address City/State/[facility] [place] Phone Number [facility] * Blood culture (01/27/2015 2:40 PM EST) Blood Culture ? Patient Name: MIRNA MILTON ?Ordered By: JOSE SANTIAGO ? MR#: [id number] ?LOC: ??5WST ? /Sex: ??1945 (69 years), ? Male ? PROCEDURE: Blood Culture ?SOURCE: Blood ? COLLECTED: 01/27/2015 14:40 ? BODY SITE: Right Antecubital ? STARTED: 01/27/2015 15:02 ?FREE TEXT SOURCE: #1 ? FINAL REPORT ? Final Report ? Verified:2014 23:01 ? No growth at 5 days. ? PRELIMINARY REPORT ? Preliminary Report ? Verified:2014 23:01 ? No growth at 4 days. ? [facility] Blood specimen (specimen) ANTECUBITAL REGION STRUCTURE / Unknown 01/27/2015 2:40 PM EST 01/27/2015 3:02 PM EST Comment:#1 Narrative Resulting Agency Comment Spec In Lab Jose Satniago MD MICROBIOLOGY - BLOOD ORDERABLES Performing Organization Address [facility] Phone Number [facility] * APTT (01/27/2015 2:40 PM EST) Partial Thromboplastin Time 31 25 - 35 sec [facility] Comment: Recommended therapeutic PTT range for full dose unfractionated heparin is 80-114 seconds. Blood specimen (specimen) 01/27/2015 2:40 PM EST 01/27/2015 2:54 PM EST Narrative Resulting Agency Comment Spec In Lab Jose Santiago MD HEMATOLOGY ORDERABLE S Performing Organization Address [facility] Phone Number [facility] * Prothrombin Time (01/27/2015 2:40 PM EST) Prothrombin Time 14.8 12.5 - 15.5 sec [facility] Comment: Transfusion Committee Guidelines: INR less than 2.0, PTT less than OR equal to 43.5 seconds, or Fibrinogen greater than or equal to 100 mg/dl indicate adequate procoagulant activity for hemostasis in patients without underlying bleeding disorders. International Normalization Ratio 1.1 0.9 - 1.1 [facility] Blood specimen (specimen) 01/27/2015 2:40 PM EST 01/27/2015 2:54 PM EST Narrative Resulting Agency Comment Spec In Lab Jose Santiago MD HEMATOLOGY ORDERABLE S Performing Organization Address [facility] Phone Number [facility] * (ABNORMAL) Comprehensive metabolic panel (non-fasting) (01/27/2015 2:40 PM EST) Glucose 118 60 - 199 mg/dL CERNER MILLENNIUM Comment:Diabetes: >=200 mg/d L plus symptoms Blood Urea Nitrogen 22(H) 10 - 20 mg/dL CERNER MILLENNIUM Creatinine 0.91 0.80 - 1.50 mg/dL CERNER MILLENNIUM Comment: Please note that the pediatric reference intervals supplied above were not validated at [facility]. Results from pediatric patients should be interpreted [...] Direct 0.2 0.0 - 0.3 mg/dL CERNER MILLENNIUM Est Glomerular Filtration Rate [...] the following links into your internet browser. http://[employer]/DHnkdep http://[employer]/[facility]f Blood specimen (specimen) 01/27/2015 2:40 PM EST 01/27/2015 2:54 PM EST Narrative Resulting Agency Comment Spec In Lab Jose Santiago MD CHEMISTRY ORDERABLES KIMBERLYN BLACKWELL * Request for 2nd read CT Chest [...] prostate gland.. Jose Santiago MD IMG OUTSIDE [facility] TATION ORDERABLES * Request for 2nd [...] intravenous administration of 20 mL Magnevist. MRA tolowa dee-ni' of Dick performed without the use of intravenous contrast. MRA of the neck performed prior to and following intravenous administration of 20 mL Magnevist. Study was performed at [facility] on 01/26/2015. COMPARISON: CT 01/24/2015, carotid ultrasound [...] of abnormal enhancement, or restricted diffusion. MRA tolowa dee-ni' of Dick: Intracranial internal carotid arteries are normal in caliber bilaterally. MCA, HARRY, and visualized branches are normal. There is relatively poor flow related enhancement of a portion of the intradural vertebral artery. The left intradural vertebral artery is normal. Basilar artery is normal in caliber. Posterior cerebral arteries are unremarkable. MRA neck: 2-D [id number] images demonstrate normal antegrade flow in the [...] intravenous administration of 20 mL Magnevist. MRA tolowa dee-ni' of Dick performed withoutthe use of intravenous contrast. MRA of the neck performed prior to andfollowing intravenous administration of 20 mL Mag[facility]. [facility] COMPARISON: CT 01/24/2015, carotid ultrasound [...] area of abnormal enhancement, orrestricted diffusion. MRA tolowa dee-ni' of Dick: Intracranial internal carotid arteries are normalin caliber bilaterally. MCA, HARRY, and visualized branches are normal. Thereis relatively poor flow related enhancement of a portion of the intradural vertebral artery. The left intradural vertebral artery is normal. Basilarartery is normal in caliber. Posterior cerebral arteries are unremarkable. MRA neck: 2-D dcti-jq-vbalzh images demonstrate normal antegrade flow inthe carotid [...] confluence to the right PICA origin. Jose MOULTONG OUTSIDE INTERPRE TATION ORDERABLES documented in this encounter Visit Diagnoses Not on filedocumented in this encounter Administered Medications Inactive Administered Medications - up to 3 most recent administrations Medication Order MAR Action Action Date Dose Rate Site gelatin adsorbable (GELFOAM) sponge ONCE PRN, Starting on Fri01/27/15 at 1712, Until Fri01/27/15 at 2007, Intra-Operative (Intra-Procedure) Given 01/27/2015 5:12 PM EST 1 each lidocaine-EPINEPHrine 1 %-1:200,000 injection ONCE PRN, Starting on Fri01/27/15 at 1702, Until Fri01/27/15 at 2007, Intra-Operative (Intra-Procedure), Routine Given 01/27/2015 5:02 PM EST 4 mLs 19- Surgical Site thrombin (bovine) (THROMBIN-JMI) solution ONCE PRN, Starting on Fri01/27/15 at 1702, Until Fri01/27/15 at 2007, Intra-Operative (Intra-Procedure) Given 01/27/2015 5:02 PM EST 5,000 Units 19- Surgical Site documented in this encounter Active and Recently Administered Medications Times are shown in EST. 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 0953 (Given - Provider: Faby Singh RN) dexamethasone (DECADRON) tablet 4 mg (CANCELED)(Linked Group 1) 4 mg, Oral, EVERY 6 HOURS SCHEDULED, First dose on Fri01/27/15 at 1845, Until Discontinued, Routine 0033 (Given - Provider: Abena Berry RN)0519 (Given - Provider: Abena Berry RN)1026 (Given - Provider: So Martinez RN)1637 (Given - Provider: So Martinez RN)2351 (Given - Provider: Kyung Chang RN) 0443 (Given - Provider: Kyung Chang RN) [...] Singh RN)1000 (Canceled Entry - Provider: Faby Snigh RN - Reason: See comment - Comment: [...] Routine 0813 (Given - Provider: So Martinez RN)210 (Given - Provider: Jimbo Sage RN) 0813 (Given - Provider: Faby Singh RN)2057 (Given - Provider: Kyung Chang RN) 0843 [...] 30 Minutes, Indication for (Active or Suspected): 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
--- OUTSIDE RECORDS SUMMARY | 2024-07-21 19:33 | XMS_ITS | Encounter Summary ---
Author Organization [facility] [place] [address] Care Team Providers Care Technical Service Engineer Name Role Phone Camacho Irwin MD Primary Care Provider [phone] Encounter Details Date Type Department Care Team (Late st Contact Info) Description 01/26/2015 [place] [address] Jose Small MD [facility] [place] [address] Social History Tobacco Use Types Packs/Day Years [...] AM EDT Office Visit Cardiology at [address] [place] [phone] Gonzales Torres MD [facility] [place] [address] documented as of this encounter Visit Diagnoses Not on filedocumented in this encounter Care Teams Technical Service Engineer Relationship Specialty Start Date End Date Camacho Irwin MD [address] [place] [address] PCP - General 01/27/15 06/30/18 documented as of this encounter
--- OUTSIDE RECORDS SUMMARY | 2024-07-21 19:33 | XMS_ITS | Encounter Summary ---
Author Organization [facility] [place] [address] Care Team Providers Care Muff Winder Name Role Phone Camacho Irwin MD Primary Care Provider [phone] Encounter Details Date Type Department Care Team (Late st Contact Info) Description 01/24/2015 [place] [address] Jose Small MD [facility] [place] [address] Social History Tobacco Use Types Packs/Day Years [...] Office Visit Cardiology at [address] [place] [phone] Gonzales Torres MD [facility] [address] documented as of this encounter Visit Diagnoses Not on filedocumented in this encounter Care Teams Muff Winder Relationship Specialty Start Date End Date Camacho Irwin MD [address] [place] [address] PCP - General 01/27/15 06/30/18 documented as of this encounter
--- OUTSIDE RECORDS SUMMARY | 2024-07-21 19:33 | XMS_ITS | Encounter Summary ---
Author Organization [facility] [place] [address] Care Team Providers Care Training Officer Name Role Phone Camacho Irwin MD Primary Care Provider [phone] [phone] Encounter Details Date Type Department Care Team (Late st Contact Info) Description 01/24/2015 [place] [address] Jose Small MD [facility] [place] [address] Social History Tobacco Use Types Packs/Day Years [...] 9:40 AM EDT Office Visit Cardiology at [address] [place] [phone] Gonzales Torres MD [facility] [place] [address] documented as of this encounter Procedures Procedure Name Priority Date/Time Associated Diagnosis Comments FILM LIBRARY STORAGE ONLY CT HEAD Routine 01/24/2015 10:33 AM EST documented in this encounter Results * Film Library- Storage only CT Head (01/24/2015 10:33 AM EST) Anatomical Region Laterality Modality Head Other 01/24/2015 10:3 3 AM EST Narrative 01/27/2015 10:33 AM EST This is a Non-reportable exam Procedure Note ESAU, UNSIGNED REPORT - 01/27/2015 This is a Non-reportable exam Jose Small MD IMG FILM LIBRARY ORD ERABLES documented in this encounter Visit Diagnoses Not on filedocumented in this encounter Care Teams Training Officer Relationship Specialty Start Date End Date Camacho Irwin MD [address] [place] [address] PCP - General 01/27/15 06/30/18 documented as of this encounter
--- OUTSIDE RECORDS SUMMARY | 2024-07-21 19:33 | XMS_ITS | Encounter Summary ---
Author Organization [facility] [place] [address] Care Team Providers Care Data Warehouse Architect Name Role Phone Camacho Irwin MD Primary Care Provider [phone] Encounter Details Date Type Department Care Team (Late st Contact Info) Description 01/26/2015 [place] [address] Jose Small MD [facility] [place] [address] Social History Tobacco Use Types Packs/Day Years [...] AM EDT Office Visit Cardiology at [address] [place] [phone] Gonzales Torres MD [facility] [place] [address] documented as of this encounter Procedures Procedure Name Priority Date/Time Associated Diagnosis Comments FILM LIBRARY STORAGE ONLY ULTRASOUND STUDY Routine 01/24/2015 11:20 AM EST documented in this encounter Results * Film Library- Storage only Ultrasound Study (01/24/2015 11:20 AM EST) Anatomical Region Laterality Modality Other 01/24/2015 11:2 0 AM EST Narrative 01/27/2015 11:19 AM EST This is a Non-reportable exam Procedure Note ESAU, UNSIGNED REPORT - 01/27/2015 This is a Non-reportable exam Jose Small MD IMG FILM LIBRARY ORD ERABLES documented in this encounter Visit Diagnoses Not on filedocumented in this encounter Care Teams Data Warehouse Architect Relationship Specialty Start Date End Date Camacho Irwin MD [address] [place] [address] PCP - General 01/27/15 06/30/18 documented as of this encounter
--- OUTSIDE RECORDS SUMMARY | 2024-07-21 19:33 | XMS_ITS | Encounter Summary ---
Author Organization [facility] [place] [address] Care Team Providers Care Director Operations Broadcast Name Role Phone Camacho Irwin MD Primary Care Provider [phone] Encounter Details Date Type Department Care Team (Late Contact Info) Description 01/27/2015 [place] [address] Jose Small MD [facility] [place] [address] Social History Tobacco Use Types Packs/Day Years [...] AM EDT Office Visit Cardiology at [address] [place] [phone] Gonzales Torres MD [facility] [place] [address] documented as of this encounter Visit Diagnoses Not on filedocumented in this encounter Care Teams Director Operations Broadcast Relationship Specialty Start Date End Date Camacho Irwin MD [address] [place] [address] PCP - General 01/27/15 06/30/18 documented as of this encounter
[2024-07-21 21:02] LABS: Bilirubin Negative (Negative); Blood Moderate (Negative); Clarity Sl Cloudy (Clear); Glucose Negative (Negative); Ketones Negative (Negative); Leukocyte Esterase Moderate (Negative); Nitrite Negative (Negative); Specific Gravity >= 1.030 (1.005-1.025); Urobilinogen 0.2 mg/dL (Up to 0.2); pH 5.5 (5-8)
[2024-07-21 21:17] LABS: C & S Indicated? Yes; WBC >50 HPF (0-5)
[2024-07-21 21:22] LABS: Abs Immature Grans 0.06 10^3/uL (0.0-0.06); Absolute Basophil Count 0.05 10^3/uL (0.0-0.2); Absolute Eosinophil Count 2.33 10^3/uL (0.0-0.7); Absolute Lymphocyte Count 1.59 10^3/uL (1.2-3.4); Basophils % 0.3 %; Eosinophils % 15.5 %; HCT 41.4 % (40.0-50.0); HGB 13.9 g/dL (13.5-17.5); Immature Grans % 0.4 %; Lymphocytes % 10.6 %; MCH 32.6 pg (27.0-33.0); MCHC 33.6 % (32.0-36.0); MCV 97 fL (80-95); MPV 10.5 fL (8.0-11.0); Neutrophils % 65.2 %; Platelet Count 231 10^3/uL (130-400); RBC 4.27 10^6/uL (4.36-5.78); RDW 13.3 % (11.8-14.1); RDW-SD 47.7 fL; WBC 15.01 10^3/uL (4.4-10.8)
[2024-07-21 21:35] LABS: ALT 26 U/L (16-63); AST 18 U/L (15-37); Alkaline Phosphatase 114 U/L (46-116); Anion Gap 9.9 mmol/L (3-11); BUN 17 mg/dL (7-18); Bilirubin, Total 1.02 mg/dL (0.2-1.0); CO2 26.1 mmol/L (21.0-32.0); Calcium 9.9 mg/dL (8.5-10.1); Chloride 103 mmol/L (98-107); Estimated GFR 77.04 (mL/min/1.73m2); Glucose 107 mg/dL (74-106); Potassium 3.6 mmol/L (3.5-5.1); Sodium 139 mmol/L (136-145); Total Protein 8.1 g/dL (6.4-8.2); Troponin I < 50 ng/L (< or =60)
[2024-07-21 21:42] LABS: Absolute Neutrophil Count 9.79 10^3/uL (1.2-6.7)
[2024-07-21 21:57] LABS: Diff Comment Agrees w/ Instrument; RBC Morphology Normal
--- NOTE | 2024-07-21 22:17 | ED.GENADUL_ITS ---
Discharge Plan Disposition Patient Disposition: Home Discharge Details Clinical Impression: Acute UTI, CHF (congestive heart failure), Atrial fibrillation with RVR, Atherosclerosis of prairie band coronary artery of prairie band heart without angina pectoris, Peripheral artery disease, Leukocytosis Primary Care Provider: Camacho Barrera ED Provider: Elena Huynh Home Meds and New Rx's Prescriptions: New levofloxacin 250 mg tablet 250 mg PO DAILY 5 Days Qty: 5 0RF No Action furosemide 20 mg tablet 20 mg PO DAILY PRN timolol maleate 0.5 % gel forming solution 1 drp ophthalmic (eye) BID clotrimazole 1 % cream 1 applic topical BID Qty: 45 3RF lisinopril 2.5 mg tablet 2.5 mg PO DAILY Qty: 90 3RF diltiazem HCl 240 mg capsule,extended release 24hr 240 mg PO BID Qty: 180 3RF Patient Comments: TAKE ONE CAPSULE BY MOUTH EVERY MORNING atorvastatin 80 mg tablet 80 mg PO DAILY Qty: 90 3RF clopidogrel 75 mg tablet 75 mg PO DAILY Discharge Instructions Instructions: Urinary Tract Infection, Adult ED Additional Instructions: You were seen in the emergency department today for evaluation of painful urination and were found to have a urinary tract infection. I provided you with your first dose of antibiotics here in the emergency department. You need to follow-up with your provider at your visit tomorrow, your white blood cell count was slightly high and so I would have a low threshold to return to the emergency department if you develop fever, nausea or vomiting, or other concerning symptoms. Thank you for allowing us to be part of your care. HPI General Mode of arrival: ambulatory . Date/Time Provider Initiated Documentation: 07/21/24 20:07 . Limitations to Documentation: no limitations . Information obtained by: patient, family and old records reviewed . HPI Narrative: MDM: This is a 78-year-old male patient presenting for evaluation of 1 day of dysuria with cloudy urine. My differential includes but is not limited to urinary tract infection, pyelonephritis, nephrolithiasis. The patient is hemod ynamically appropriate, afebrile, and without flank pain or systemic symptoms to significantly increase my concern for sepsis, bacteremia. The patient was initially incorrectly triaged as a chest pain, but has not had any chest pain, shortness of breath, abdominal pain, or other concerning symptoms to suggest ACS or cardiac abnormalities. He is tolerating p.o., I have a lower concern for metabolic and electrolyte derangements, dehydration, kidney injury. We will obtain laboratory studies to include CBC, CMP, urinalysis, and I will review prior culture data as the patient has not taken antibiotics in some time. ED Course: I reviewed the patient's laboratory studies, which show leukocytosis to 15, no anemia or thrombocytopenia. Chemistry panel without electrolyte derangements, evidence of kidney dysfunction or liver disease. Troponin was negative, urinalysis was evaluated and shows moderate blood and leukocyte esterase with pyuria concerning for infection. This was sent for culture. The patient's prior culture data was reviewed, he states that he had excellent response to the levofloxacin that he was prescribed in 2012, and given his allergy to ceftriaxone and penicillins I feel it is reasonable to utilize that medication once more. I provided him with a first dose here in the emergency department and counseled him to return to care immediately if he develop fever, flank pain, abdominal pain, nausea or vomiting as his white blood cell count elevation is concerning to me for the development of potential pyelonephritis. At this time, the patient has had a full medical evaluation and is safe for discharge to home. They are hemodynamically stable, ambulatory, and tolerating PO. They are understanding of the follow-up plan and return precautions. They left our facility without incident. Elena Huynh MD HPI: This is a 78-year-old male patient with a past medical history significant for atrial fibrillation, CHF, enlarged prostate, hyperlipidemia, hypertension, presenting for evaluation of dysuria. The patient reports that he was in his normal state of health today when he developed pain with urination and felt like his urine looked more cloudy. He states that when he pees it comes out durably, and he feels like he is having to go more frequently due to his inadequate emptying. He is not experiencing abdominal pain, flank pain, fever, nausea or v omiting. The patient reports that he used to have recurrent UTIs but for the last 2 years he has not had 1 as he is initiated a cranberry juice regimen. He states that he has otherwise been in his normal state of health, has not taken antibiotics for over a year, and does not have any other acute complaints at this time. Exam: Gen: Awake and alert, in no apparent distress HEENT: Non-icteric sclera Neck: Supple Lungs: No apparent respiratory distress, normal respiratory effort. CV: Appears well perfused, strong distal pulses Abdomen: Non-distended, soft, nontender to palpation without rigidity, guarding, rebound MSK: Moves 4 extremities without apparent limitation in ROM. No CVA tenderness Skin: Visualized skin without rashes, cyanosis. Neuro: Normal Gait, no obvious focal deficits or facial asymmetry. Speaks in full, clear sentences. Psych: Appropriate for situation. Related Data Home Medications ?Medication ?Instructions ?Recorded ?Confirmed timolol maleate 0.5 % eye gel 1 drp ophthalmic (eye) BID 05/08/23 07/08/24 forming solution clotrimazole 1 % topical cream 1 applic topical BID #45 grams 06/27/23 07/08/24 clopidogrel 75 mg tablet 75 mg PO DAILY 07/17/23 07/08/24 lisinopril 2.5 mg tablet 2.5 mg PO DAILY #90 tabs 02/20/24 07/08/24 diltiazem HCl 240 mg 240 mg PO BID #180 caps 03/29/24 07/08/24 capsule,extended release 24 hr furosemide 20 mg tablet 20 mg PO DAILY PRN 05/13/24 07/08/24 atorvastatin 80 mg tablet 80 mg PO DAILY #90 tabs 06/07/24 07/08/24 levofloxacin 250 mg tablet 250 mg PO DAILY 5 days #5 tabs 07/21/24 Previous Rx's ?Medication ?Instructions ?Recorded clotrimazole 1 % topical cream 1 applic topical BID #45 grams 06/27/23 lisinopril 2.5 mg tablet 2.5 mg PO DAILY #90 tabs 02/20/24 diltiazem HCl 240 mg 240 mg PO BID #180 caps 03/29/24 capsule,extended release 24 hr atorvastatin 80 mg tablet 80 mg PO DAILY #90 tabs 06/07/24 levofloxacin 250 mg tablet 250 mg PO DAILY 5 days #5 tabs 07/21/24 Allergies Allergy/AdvReac Type Severity Reaction Status Date / Time venom-honey bee (bee venom Allergy Severe HIVES Verified 07/08/24 14:34 (honey bee)) TACHYCARDIA Penicillins Allergy Intermediate HIVES Verified 07/08/24 14:34 [facility] AdvReac Severe leukopenia Verified 07/08/24 14:34 prednisone AdvReac Severe rectal Verified 07/08/24 14:34 bleeding and diarrhea aspirin AdvReac Intermediate Nosebleeds Verified 07/08/24 14:34 ceftriaxone AdvReac Intermediate Leukopenia Verified 07/08/24 14:34 simvastatin AdvReac Intermediate LEG PAIN Verified 07/08/24 14:34 DR MCLEOD SHRIMP Allergy Intermediate HIVES , Uncoded 07/08/24 14:34 NAUSEA General Stated Complaint: Urinary PALOMA: 4 Course Vital Signs Vital signs: Vital Signs Temperature 36.9 C 07/21/24 18:46 Pulse 89 07/21/24 18:46 Respiratory Rate 15 07/21/24 18:46 Blood Pressure 131/75 07/21/24 18:46 Pulse Oximetry 96 07/21/24 18:46 Temperature 36.9 C 07/21/24 18:46 Temperature Source Oral 07/21/24 18:46 Pulse 89 07/21/24 18:46 Respiratory Rate 15 07/21/24 18:46 Respiratory Effort Normal, Non-Labored 07/21/24 21:11 Blood Pressure 131/75 07/21/24 18:46 Blood Pressure Position Sitting 07/21/24 18:46 Pulse Oximetry 96 07/21/24 18:46 Oxygen Delivery Method Room Air 07/21/24 18:46 Oxygen Flow Rate 0 07/21/24 18:46 Lab/Test Results Lab/Test Results: 07/21/24 20:55 Urine - Reflex from Ua Urine Culture - Pending Laboratory Tests Range/Units 07/21/24 07/21/24 20:55 21:06 WBC (4.4-10.8) 10^3/uL 15.01 H RBC (4.36-5.78) 10^6/uL 4.27 L Hgb (13.5-17.5) g/dL 13.9 Hct (40.0-50.0) % 41.4 MCV (80-95) fL 97 H MCH (27.0-33.0) pg 32.6 MCHC (32.0-36.0) % 33.6 RDW (11.8-14.1) % 13.3 Plt Count (130-400) 10^3/uL 231 MPV (8.0-11.0) fL 10.5 Immature Gran % % 0.4 Neutrophils % % 65.2 Lymphocytes % % 10.6 Monocytes % % 8.0 Eosinophils % % 15.5 Basophils % % 0.3 Nucleated RBC % (0.0-0.3) % 0.0 Absolute Neutrophils (1.2-6.7) 10^3/uL 9.79 H Absolute Lymphocytes (1.2-3.4) 10^3/uL 1.59 Absolute Monocytes (0.1-0.8) 10^3/uL 1.20 H Absolute Eosinophils (0.0-0.7) 10^3/uL 2.33 H Absolute Basophils (0.0-0.2) 10^3/uL 0.05 RBC Morphology Normal Sodium (136-145) mmol/L 139 Potassium (3.5-5.1) mmol/L 3.6 Chloride (98-107) mmol/L 103 Carbon Dioxide (21.0-32.0) mmol/L 26.1 Anion Gap (3-11) mmol/L 9.9 BUN (7-18) mg/dL 17 Creatinine (0.70-1.30) mg/dL 1.0 Est GFR (CKD-EPI 2020) (mL/min/1.73m2) 77.04 Glucose (74-106) mg/dL 107 H Calcium (8.5-10.1) mg/dL 9.9 Total Bilirubin (0.2-1.0) mg/dL 1.02 H AST (15-37) U/L 18 ALT (16-63) U/L 26 Alkaline Phosphatase (46-116) U/L 114 Troponin I (< or =60) ng/L < 50 Total Protein (6.4-8.2) g/dL 8.1 Albumin (3.4-5.0) g/dL 4.0 Urine Color (Yellow) Yellow Urine Clarity (Clear) Sl Cloudy Urine pH (5-8) 5.5 Ur Specific [place] (1.005-1.025) >= 1.030 H Urine Protein (Neg-Trace) mg/dL 100 H Urine Ketones (Negative) mg/dL Negative Urine Blood (Negative) Moderate H Urine Nitrite (Negative) Negative Urine Bilirubin (Negative) Negative Urine Urobilinogen (Up to 0.2) mg/dL 0.2 Ur Leukocyte Esterase (Negative) Moderate H Urine RBC Not Applicable Urine WBC (0-5) HPF >50 H Ur Epithelial Cells Not Applicable Urine Crystals Not Applicable Urine Bacteria Not Applicable Urine Mucus Not Applicable Ur Culture Indicated? Yes Urine Glucose (Negative) mg/dL Negative Medical Decision Making Quality:SDOH Health Related Social Needs: Health related social needs risk of homeless PFSH All Active Problems (Updated 07/21/24 @ 22:19 by Elena Huynh MD) Leukocytosis (Acute) Acute UTI (Acute) Chronic diarrhea (Acute) Skin lesion of right ear (Acute) Skin lesion of left ear (Acute) CHF exacerbation (Acute) Sleep related hypoxia (Acute) Atrial fibrillation with RVR (Acute) CHF (congestive heart failure) (Chronic) Influenza A (Acute) Left rib fracture (Acute) Atherosclerosis of aorta (Chronic) Enlarged prostate (Acute) Low back pain (Acute) Atrial fibrillation (Chronic) History of left-sided carotid endarterectomy (Acute) 07/16/2023 at [facility] Peripheral artery disease (Acute) 08/15/23 F/u Vascular Non-healing skin lesion (Acute) Hyperlipidemia, unspecified (Acute) Acute ischemic stroke (Acute 05/18/23) Occlusion of right vertebral artery (Acute) Carotid stenosis, bilateral (Chronic) I65.21 - Right-sided extracranial carotid artery stenosis Macrocytosis without anemia (Acute) Primary open angle glaucoma (POAG) of right eye, mild stage (Chronic) Tricuspid regurgitation (Acute) Beat, premature ventricular (Acute ~08/2022) 09/11/22 Cardiology 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 (Acute) Syncope (Chronic) Internal hemorrhoids (Acute) Trigger middle finger of right hand (Acute 04/25/16) Abdominal aortic aneurysm (AAA) 3.0 cm to 5.5 cm in diameter in male (Chronic) Found in October 2018, needs to be rechecked every 3 years Pure hypercholesterolemia (Chronic 01/31/12) goal LDL<70 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 s/p stenting x 5 2010 or 2011 at [facility] b. presenting symptom was primarily fatigue Hypertension (Chronic) Benign prostatic hypertrophy (Chronic) Atrial fibrillation (Chronic) I48.0 Paroxysmal atrial fibrillation 10/09/20 [facility] Cardiology Medical History (Updated 07/21/24 @ 22:19 by Elena Huynh MD) Fall Orthostatic hypotension Elevated troponin I level Ischemic stroke Hx of colonic polyps H/O: urinary stone Surgical History S/P carotid endarterectomy S/P ablation of atrial fibrillation (10/2018) steriotactic brain bx (01/27/15) [facility] bx brain abscess R small trigger finger release (05/28/16) [place] Family History Mother , HF at age 89. Heart disease Father , stroke HBP at age 90. Essential hypertension Brother , heart at age 82. No problems noted. Brother No problems noted. 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 Pets and animals: No Sexually active: Yes Do you think of yourself as: straight/heterosexual Current gender identity: male What is your relationship status?: How often do you talk on the phone with friends or family?: three or more times per week How often do you get together with friends or relatives?: three or more times per week Do you belong to any clubs or organized social groups?: yes Panel score (0-1 are the most socially isolated patients): 3 What type of physical activity do you participate in: none Cassidy/Confucianism: None Special cassidy needs: No Seatbelt use: always Drive intox or ride w/intox cpr ambulance driver: No Working smoke detector in home: Yes Fire extinguisher in home: Yes Carbon monox detector in home: Yes Do you feel safe at home: Yes Do you feel safe in your relationship?: Yes Additional Social history: 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 Lives with Kisha in [facility]
[2024-07-21 22:27] VITALS: BP 148/75; PULSE 76; RESP 16; O2SAT 97
[2024-07-21] MEDS: levoFLOXacin 250 MG TAB PO (22:28)
== END 2024-07-21 22:28 | disposition home or self-care (01) ==
PROVIDERS: Emergency Provider Emergency Medicine; PCP Family Medicine
DX: R30.0 Dysuria (principal); N39.0 Urinary tract infection, site not specified; D72.829 Elevated white blood cell count, unspecified
CPT/HCPCS: 36415; 80053; 99283; 81003; 81015; 84484; 85025; 87086

== ENCOUNTER 2024-09-25 08:30 | Emergency (ER) | payer MEDICARE, SELFPAY ==
[2024-09-25 08:33] VITALS: BP 147/100; PULSE 70; RESP 18; TEMP 36.4; O2SAT 97
--- OUTSIDE RECORDS SUMMARY | 2024-09-25 08:38 | XMS_ITS | Encounter Summary ---
Author Organization [facility] Address [address] [place] [address] Care Team Providers Care Sealer Sander Name Role Phone Unavailable Primary Care Provider Unavailabl e Encounter Details Date Type Department Care Team (Late st Contact Info) Description 07/14/2003 Results Only [facility] - Maple conversion [address] [place] [address] Stiven Grewal MD [address] [place] [id number] Social History Tobacco Use Types Packs/Day Years [...] ? MILTONCAMACHO Zaki ? Accession #: ? [id number] ? : ? 1945 (Age: 57) ??M [...] is entirely submitted in one cassette. ??(Cindy Asher)/[facility] End of Report MARCIN KUMAR 07/14/2003 07/15/2003 15: 26 EDT Stiven Grewal MD PATHOLOGY ORDERABLE S MARCIN KUMAR [address] [place] [address] documented in this encounter Visit Diagnoses Not on filedocumented in this encounter
--- OUTSIDE RECORDS SUMMARY | 2024-09-25 08:38 | XMS_ITS | Referral Summary ---
Author Organization [facility] Address [address] [place] [address] Care Team Providers Care Posting Machine Operator Name Role Phone Camacho Irwin MD Primary Care Provider Unav ailable Encounters Date Type Department Care Team Description 07/10/2024 Lab Requisition [facility] Pathology & Laboratory Medicine - [address] [address] Outr Resulting Lab, Provider from Last 3 [...] this medicine without discussing first with your tool checker. 90 Tab 3 08/23/2011 Active Social History [...] Salmonella PCR Negative Negative 07/11/2024 22:53 EDT [facility] Shigella/Enteroin vasive E. coli Negative Negative 07/11/2024 22:53 EDT [facility] HN LAB CAMPYLOBACTER PCR Negative Negative 07/11/2024 22:53 EDT [facility] Shiga Toxin PCR Negative Negative 22:53 EDT [facility] Feces SPECIMEN FROM RECTUM / Unknown 07/09/2024 12:23 EDT 07/11/2024 17:15 EDT Provider Outr Resulting Lab MICROBIOLOGY - GENERAL ORDERABLES [facility] [address] [place], [place] [id number] from Last 3 Months Advance Directives For more information, please contact: [phone] Documents on File Type Date Recorded Patient Cargo Router Expl anation Advance Directive 08/22/2011 8:48 * Full Code (Latest Code Status on File) Date Activated Date Inactivated Comments 08/22/2011 12:02 08/23/2011 13:03 Care Teams Posting Machine Operator Relationship Specialty Start Date End Date Camacho Irwin MD PCP - General 08/20/11
--- OUTSIDE RECORDS SUMMARY | 2024-09-25 08:38 | XMS_ITS ---
Author Organization Unknown ALLERGIES AND ADVERSE REACTIONS No information ASSESSMENT No information CHIEF COMPLAINT No information MEDICATIONS No information OBJECTIVE DATA No information PHYSICAL EXAMINATION No information TREATMENT PLAN Planned Care Start Date Provider Encounter for Check-up [id number] PROBLEMS No information RESULTS No information 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 No information SUBJECTIVE DATA No information VITAL SIGNS No information
--- OUTSIDE RECORDS SUMMARY | 2024-09-25 08:38 | XMS_ITS | Encounter Summary ---
[place] [address] Care Team Providers Care Sole Inker Name Role Phone Camacho Barrera DO Primary Care Provider [phone] Reason for Visit * Reason Comments Medication Refill Encounter Details Date Type Department Care Team (Late st Contact Info) Description 09/22/2024 Refill [place] [address] [address] Pike APRN [facility] [place] [address] Carotid stenosis, asymptomatic, bilateral; PAD (peripheral artery disease); Left carotid artery stenosis Social History Tobacco Use Types Packs/Day Years Used Date Smoking Tobacco: Never Smokeless Tobacco: Never Alcohol Use Standard Drinks/Week Comments Yes 14 (1 standard drink = 0.6 oz pu re alcohol) 2-3 drinks/night DH IPV Inpatient Questions Answer Date Recorded Does Anyone Try to Keep You From Having Contact with Others or Doing Things Outside Your Home? no 09/15/2024 Feels Threatened by Someone no 08/31 Feels Unsafe at Home or Work/School no 09/15/2024 Physical Signs of Abuse Present no 09/15/2024 Sex and Gender Information Value Date Recorded Sex Assigned at Male 10/01/2021 4:04 PM EDT Gender Identity Not on file Sexual Orientation Not on file documented as of this encounter Plan of Treatment Not on file documented as of this encounter Visit Diagnoses Diagnosis Carotid stenosis, asymptomatic, bilateral PAD (peripheral artery disease) Peripheral vascular disease, unspecified Left carotid artery stenosis Occlusion and stenosis of carotid artery without mention of cerebral infarction documented in this encounter Care Teams Sole Inker Relationship Specialty Start Date End Date Camacho Barrera DO [address] [place] [address] PCP - General Family Medicine 07/01/18 documented as of this encounter
--- OUTSIDE RECORDS SUMMARY | 2024-09-25 08:38 | XMS_ITS | Encounter Summary ---
Author Organization [facility] Address [address] [place] [address] Care Team Providers Care Bookkeeper Name Role Phone Mirna Irwin MD Primary Care Provider Unav ailable Encounter Details Date Type Department Care Team (Latest Contact Info) Description 08/22/2011 8:39 EDT - 08/23/2011 11:02 EDT Hospital Encounter [facility] Cardiac/Telemetry Unit [address] [place], [place] [id number] Reji Sue MD [address] [place] [id number] Discharge Disposition: Home or Self Care Social [...] is scheduled with Dr Jamie Rao in [facility] and the patient is referred to cardiac rehab at [facility] in [facility]. Diagnostic Studies: Diagnostic Cardiac Study Results Left [...] was treated with a 2.5 x 24 Regent. The distal LAd was trested with a [...] this medicine without discussing first with your oncology physician assistant. 90 Tab 3 cc: MD Jamie OLIVO [...] while taking these medications, immediately contact your oncology physician assistant. Do not stop taking aspirin or Plavix without discussing this with your doctor. Appointments: See Dr. MIRNA IRWIN MD in 2 weeks. Please call for an appointment. Follow up with Dr.Michael Rao, Welding Pantograph Operator in [facility], on FriSep 11 @ 10:00 a.m Clinic number: [phone]. Follow up with Cardiac Rehab Cardiac Rehab Referral: You have been referred for cardiac rehabilitation at your local hospital, [facility] in [facility]. We expect that the cardiac rehabilitation program [...] concerns about your blood pressure. Nutrition Counseling [facility] provides outpatient nutrition counseling. To schedule an appointment, call [phone]. Patients with diabetes are seen at the Endocrinology Clinic at these three practice sites: [address] [place] [address] [place], [place] [address] documented in this encounter Medications [...] this medicine without discussing first with your oncology physician assistant. 90 Tab 3 08/23/2011 ISOSORBIDE ORAL Take [...] this medicine without discussing first with your oncology physician assistant. 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 Case Management Actions (completed and planned): Met with patient who is on plavix [facility] and states has coverage.He declined HH Plan: to be discharged without HH. * Salma Parson - 08/23/2011 1050 EDT D: Patient admitted to for DOPA Cath; 5 stents placed. A: IV and telemetry discontinued, Discharge instructions reviewed with patient, C UNIX DEVELOPER gave patient prescriptions. R: Patient is A&Ox3, [...] MATTY LORENZ MD 08/23/2011 7:06 * Reji Sue MD - 08/22/2011 1602 EDT August 22, 2011 Mirna Irwin MD [facility] [address] [place] [address], [address] [place] [address] Irwin: I am writing in [...] PM / Reji Sue MD kayla Confirmation: [id number] Dictation ID: [id number] cc:Jamie Irwin MD * Diane Colon NP - 08/22/2011 1528 EDT Plavix daily without interruption x 1 year and Aspirin 81 mg daily lifetime reviewed with patient and the patient verbalizes understanding. Cardiac rehab reviewed with patient and the patient is willing to attend at [facility] in [facility]. Referral sent and written material given to patient. Right femoral site injected with xylocaine/epi 6 ml with resolution of site bleeding. + right DP pulse. No chest pain. * Sadia Mir RN - 08/22/2011 0906 EDT 0900 Mirna Flores arrived to the Cardiovascular Unit via ambulatory. Patient identified per [facility] policy and oriented to Unit. Reviewed pre-procedure instructions with Mirna Flores. All questions answered & patient verbalizes understanding. Pre-cardiac cath prep completed per protocol. Stretcher in low position with side rails up & call hinkle within patient reach. Daughter will arrive later and transport 0950 to cardiac cath rn via stretcher with transport. Pain 0/10. No family here at present. is home recovering from hip surgery and daughter lives in [place] and will grain picker later. * Diane Colon NP - 08/21/2011 [...] lateral and inferolateral ischemia. He presents for [facility]. PMH PSH Past Medical History Diagnosis Date [...] to DAPT at this time. Consent obtained. Juqauin Ramirez MD 08/22/2011 10:35 documented in this [...] artery Procedure: He was brought to the [facility] Cardiac Catheterization Laboratory for the procedure: Diagnostic [...] was treated with a 2.5 x 24 Regent. The distal LAd was trested with a 2.5x18 and then 2.25x8mm Xience. Plan: Plavix 75 mg po QD x 1 year minimum. Continue ASA Optimize lipids Post Interventional Conclusion / Physician Order for Admission: The patient cannot go home same daydue to > 60 minute distance from the PCI center or other co-morbidity that warrants bedded outpatient, overnight stay. Reference: ULANA Walker et. Al. Randomized trial comparing same-day discharge with overnight hospital stay after percutaneous coronary intervention; Circulation; 2006March 31; 115 (17):1704-306 Reji Sue MD 08/22/2011 11:51 * Agricultural Appraiser, Scan - 08/22/2011 0000 EDTAssociated Order(s): ECG REPORT - SCANNED * Agricultural Appraiser, Scan - 08/22/2011 0000 EDTAssociated Order(s): ECG REPORT - SCANNED * Agricultural Appraiser, Scan - 08/22/2011 0000 EDTAssociated Order(s): CARDIAC CATHERIZATION REPORT - SCANNED * Agricultural Appraiser, Scan - 08/22/2011 0000 EDTAssociated Order(s): ECG REPORT - SCANNED documented in this encounter Miscellaneous Notes * Plan of Care - Bouchra Mondragon RN - 08/23/2011 0413 EDT Problem: CIRCULATORY STATUS Goal: Patient Has Stable Vital Signs And Fluid Balance Active Multi-Disciplinary problems: DAILY CARE [450447] (08/22/11) SKIN INTEGRITY [107039] (08/22/11) DISCHARGE PLANNING [425888] (08/22/11) CIRCULATORY STATUS [876648] (08/22/11) Data: Patient voiced no complaints. Right [...] Data: New admission Action: Patient arrived to [place] [address]. Vital signs noted. Tele applied. Patient SB with HR in 50s. Patient denies chest pain, SOB, and discomfort. Patient denies complaints at this time. Patient oriented to room, equipment, and careplan. R groin saturated on arrival, pressure held for 15 minutesand Diane Colon C UNIX DEVELOPER in room is aware. Positive pedal pulses. Assessment as documented in flowsheet. Admission database complete. Response: Will continue to monitor and document per protocol. 1300: Second R groin dressing continues to ooze. Diane Colon C UNIX DEVELOPER made aware and lido-epi injectiongiven. R groin is CDI. 1600: Orthos completed and patient passed. Patient up in hallway ambulating without any difficulties. Will CTM. Mikayla Mackay RN 08/22/2011 13:02 * Scanned Note-Null - Agricultural Appraiser, Scan - 08/22/2011 0000 EDT * Scanned Note-Null - Agricultural Appraiser, Scan - 08/22/2011 0000 EDT * Scanned Note-Null - Agricultural Appraiser, Scan - 08/22/2011 0000 EDT * Scanned Note-Null - Agricultural Appraiser, Scan - 08/22/2011 0000 EDT * Scanned Note-Null - Agricultural Appraiser, Scan - 08/22/2011 0000 EDT * Scanned Note-Null - Agricultural Appraiser, Scan - 08/22/2011 0000 EDT * Scanned Note-Null - Agricultural Appraiser, Scan - 08/22/2011 0000 EDT documented in [...] EDT) 09/03/2011 8:11 EDT Narrative Procedure Note Agricultural Appraiser, Scan - 08/22/2011 0:00 EDT Scan Agricultural Appraiser PROCEDURE/MINOR SURG ICAL ORDERABLES * CARDIAC CATHERIZATION REPORT - SCANNED (08/27/2011 20:52 EDT) 08/27/2011 20:5 2 EDT Narrative Procedure Note Agricultural Appraiser, Scan - 08/22/2011 0:00 EDT Scan Agricultural Appraiser PROCEDURE/MINOR SURG ICAL ORDERABLES * ECG REPORT - SCANNED (08/27/2011 20:52 EDT) 08/27/2011 20:5 2 EDT Narrative Procedure Note Agricultural Appraiser, Scan - 08/22/2011 0:00 EDT Transcriptions Agricultural Appraiser, Scan - 08/22/2011 0:00 EDT Scan Agricultural Appraiser PROCEDURE/MINOR SURG ICAL ORDERABLES * CK MB [...] BLOOD GA S ORDERABLES Performing Organization Address [facility] de Phone Number [facility] [address] [place] [address] * ALT (08/23/2011 6:23 EDT) ALT 29 21 - 72 U/L [facility] Blood specimen (specimen) 08/23/2011 6:23 EDT 08/23/2011 7:25 EDT Matty Lorenz MD CHEMISTRY & BLOOD GA S ORDERABLES Performing Organization Address [facility] de Phone Number [facility] [address] [place] [address] * AST (08/23/2011 6:23 EDT) AST 19 15 - 46 U/L [facility] Blood specimen (specimen) 08/23/2011 6:23 EDT 08/23/2011 7:25 EDT Matty Lorenz MD CHEMISTRY & BLOOD GA S ORDERABLES Performing Organization Address [facility] de Phone Number [facility] [address] [place] [address] * LIPID PROFILE (INCLUDES CHOLESTEROL, TRIGLYCERIDES, HDL, LDL) (08/23/2011 6:23 EDT) Cholesterol 134 mg/dl [facility] Comment:Desirable:<200 Borde rline High:200-239 High:>op=299 Triglycerides 50 35 - 160 mg/dl [facility] HDL 28 mg/dl [facility] Comment:Low:<40 High(Desirab le):>or=60 LDL, Calculated 96 mg/dl [facility] Comment: Optimal:<100 Above optimal:100-129 Borderline High:130-159 High:160-189 Very High:>hu=665 Chol/HDL Ratio 4.8 [facility] Fasting? Unknown [facility] Blood specimen (specimen) 08/23/2011 6:23 EDT 08/23/2011 7:25 EDT Matty Lorenz MD CHEMISTRY & BLOOD GA S ORDERABLES [facility] [address] [place] [address] * CREATININE (08/23/2011 6:23 EDT) Creatinine 0.80 0.7 - 1.5 mg/dl [facility] GFR, Calculated >60 ml/min/1.7 3m2 [facility] Blood specimen (specimen) 08/23/2011 6:23 EDT 08/23/2011 7:25 EDT Matty Lorenz MD CHEMISTRY & BLOOD GA S ORDERABLES [facility] [address] [place] [address] * BUN (08/23/2011 6:23 EDT) BUN 13 10 - 26 mg/dl [facility] Blood specimen (specimen) 08/23/2011 6:23 EDT 08/23/2011 7:25 EDT Matty Lorenz MD CHEMISTRY & BLOOD GA S ORDERABLES Performing Organization Address [facility]/ZIP Co de Phone Number [facility] [address] [place] [address] * ELECTROLYTES (08/23/2011 6:23 EDT) Sodium 139 136 - 145 mEq/L [facility] Potassium 4.6 3.5 - 5.0 mEq/L [facility] Chloride 103 96 - 110 mEq/L [facility] CO2 28 24 - 32 mEq/L [facility] Blood specimen (specimen) 08/23/2011 6:23 EDT 08/23/2011 7:25 EDT Matty Lorenz MD CHEMISTRY & BLOOD GA S ORDERABLES Performing Organization Address [facility] de Phone Number [facility] [address] [place] [address] * (ABNORMAL) HEMAGRAM (08/23/2011 6:23 EDT) WBC [...] & PF4 ORD ERABLES Performing Organization Address City/[facility]/ZIP Co de Phone Number [facility] [address] [place] [address] * ECHOCARDIOGRAM (08/22/2011 14:54 EDT) Anatomical Region Laterality Modality Other 08/22/2011 14:5 4 EDT Narrative 08/22/2011 16:14 EDT *Interpreting Group:* *[facility]* [address] [place] [address] *STUDY CONCLUSIONS* Summary: 1. Left ventricle: The [...] Sue ATTENDING ?Reji Sue REFERRING ?Mirna Irwin ORGAN TUNER ??Jaz Javier RDCS PERFORMING ?? Fa, ORDERING ? Matty Lorenz REFERRING ?Matty Lorenz *PROCEDURE DATA* Procedure information: ??This study was interpreted by [facility] at [facility]. ??Study status: ??Routine. Transthoracic echocardiography. ??M-mode, complete [...] Coronary atherosclerosis of unspecified type of vessel [place] or graft. *CARDIAC ANATOMY* Left ventricle: ??The [...] artery: ?? Pulmonary systolic pressure was at [id number] Hg plus right atrial pressure. Right atrium: [...] range. Electronically signed by Lalo Swain MD [id number] Procedure Note 08/22/2011 *Interpreting Group:* *[facility]* [address] [place] [address] *STUDY CONCLUSIONS* Summary: 1. Left ventricle: The [...] Sue ATTENDING Reji Sue REFERRING Mirna Irwin ORGAN TUNER Jaz Javier, [facility] PERFORMING Fahc, Ip ORDERING Gerda Matty REFERRING SimonkrissMatty *PROCEDURE DATA* Procedure information: This study was interpreted by [facility] at [facility]. Study status: Routine. Transthoracic echocardiography. M-mode, complete [...] Coronary atherosclerosis of unspecified type of vessel [place] or graft. *CARDIAC ANATOMY* Left ventricle: The [...] Pulmonary artery: Pulmonary systolic pressure was at [id number] Hg plus right atrial pressure. Right atrium: [...] range. Electronically signed by Lalo Swain MD [id number] Matty Lorenz MD CARDIAC ECHO ORDERAB LES * PTT (08/22/2011 9:15 EDT) PTT 32 24 - 35 secs [facility] Comment:Therapeutic Heparin range: 60-90 seconds Blood specimen (specimen) 08/22/2011 9:15 EDT 08/22/2011 9:40 EDT Diane Colon C UNIX DEVELOPER HEMATOLOGY & PF4 ORD ERABLES [facility] [address] [place] [address] * PROTIME (08/22/2011 9:15 EDT) Pro Time [...] & PF4 ORD ERABLES Performing Organization Address [facility] de Phone Number [facility] [address] [place] [address] * HEMAGRAM (08/22/2011 9:15 EDT) WBC 10.01 [...] & PF4 ORD ERABLES Performing Organization Address [facility] de Phone Number [facility] [address] [place] [address] * CREATININE (08/22/2011 9:15 EDT) Creatinine 0.80 0.7 - 1.5 mg/dl [facility] GFR, Calculated >60 ml/min/1.7 3m2 [facility] Blood specimen (specimen) 08/22/2011 9:15 EDT 08/22/2011 9:40 EDT Diane Colon C UNIX DEVELOPER CHEMISTRY & BLOOD GA S ORDERABLES Performing Organization Address [facility] de Phone Number [facility] [address] [place] [address] * BUN (08/22/2011 9:15 EDT) BUN 21 10 - 26 mg/dl [facility] Blood specimen (specimen) 08/22/2011 9:15 EDT 08/22/2011 9:40 EDT Diane Colon C UNIX DEVELOPER CHEMISTRY & BLOOD GA S ORDERABLES Performing Organization Address [facility] de Phone Number [facility] [address] [place] [address] * ELECTROLYTES (08/22/2011 9:15 EDT) Sodium 142 136 - 145 mEq/L [facility] Potassium 4.3 3.5 - 5.0 mEq/L [facility] Chloride 105 96 - 110 mEq/L [facility] CO2 28 24 - 32 mEq/L [facility] Blood specimen (specimen) 08/22/2011 9:15 EDT 08/22/2011 9:40 EDT Diane Colon C UNIX DEVELOPER CHEMISTRY & BLOOD GA S ORDERABLES Performing Organization Address [facility] de Phone Number [facility] [address] [place] [address] documented in this encounter Visit Diagnoses Not [...] - Reason: Other - Comment: Patient took CAR CLEANER.) 0914 (Given - Provider: Salma Parson) clopidogrel [...] - Reason: Other - Comment: Patient took CAR CLEANER) 0911 (Given - Provider: Salma Parson) simvastatin [...] 08/23/2011 documented in this encounter Care Teams Bookkeeper Relationship Specialty Start Date End Date Mirna Irwin MD PCP - General 08/20/11 documented as of this encounter
--- OUTSIDE RECORDS SUMMARY | 2024-09-25 08:38 | XMS_ITS | Clinical Summary ---
Author Organization [facility] Address [address] [place] [address] Care Team Providers Care Environmental Protection Forester Name Role Phone Camacho Irwin MD Primary [...] this medicine without discussing first with your ell teacher. 90 Tab 3 08/23/2011 Active Encounters Date Type Department Care Team Description 07/10/2024 Lab Requisition [facility] Pathology & Laboratory Medicine - [facility] [address] [place] [address] Outr Resulting Lab, Provider from Last 3 [...] Salmonella PCR Negative Negative 07/11/2024 22:53 EDT [facility] Shigella/Enteroin vasive E. coli Negative Negative 07/11/2024 22:53 EDT [facility] HN LAB CAMPYLOBACTER PCR Negative Negative 07/11/2024 22:53 EDT [facility] Shiga Toxin PCR Negative Negative 22:53 EDT [facility] Feces SPECIMEN FROM RECTUM / Unknown 07/09/2024 12:23 EDT 07/11/2024 17:15 EDT Provider Outr Resulting Lab MICROBIOLOGY - GENERAL ORDERABLES [facility] [address] [place] [address] from Last 3 Months Advance Directives For more information, please contact: [phone] Documents on File Type Date Recorded Patient Appointment Specialist Expl anation Advance Directive 08/22/2011 8:48 * Full Code (Latest Code Status on File) Date Activated Date Inactivated Comments 08/22/2011 12:02 08/23/2011 13:03 Care Teams Environmental Protection Forester Relationship Specialty Start Date End Date Camacho Irwin MD PCP - General 08/20/11
--- OUTSIDE RECORDS SUMMARY | 2024-09-25 08:38 | XMS_ITS | Clinical Summary ---
Author Organization [facility] [place] [address] Care Team Providers Care Truck Manager Name Role Phone Mirna Barrera DO Primary Care Provider Allergies Active Allergy Reactions Criticality Noted Date Comments Bee Pollen Anaphylaxis High 02/14/2015 Bee Stings Use to carry Epi Pen, Ceftriaxone Other (See Comments) 07/26/2018 leukopenia Iohexol Other (See Comments) Low 09/06/2024 Briefly experienced feelings of throat tightness which resolved after a few seconds. Levetiracetam Other (See Comments) 07/26/2018 leukopenia Penicillins [...] % Cream Apply topically as needed. Active lisinopriL (Zestril) 2.5 mg tablet Take 2.5 mg by mouth daily. Active dilTIAZem CD (Cardizem CD) 240 mg CD (ER) 24 hr casule Take 240 mg by mouth 2 times daily. 01/14/2024 Active furosemide (Lasix) 20 mg tablet Take 20 mg by mouth. prn Active clopidogreL (Plavix) 75 mg tabletIndications:Ca rotid stenosis, asymptomatic, bilateral,PAD (peripheral artery disease),Left carotid artery stenosis TAKE ONE TABLET BY MOUTH EVERY DAY 90 tablet 09/22/2024 Active Active Problems Problem Noted Date Diagnosed Date Carotid stenosis, right 09/15/2024 Left carotid artery stenosis 07/16/2023 Acute ischemic stroke 05/20/2023 Stroke 05/20/2023 Premature ventricular beats 09/11/2022 Overview (09/11/2022): Zio (December 2018): 8.6% burden, 2 morphologies prevalent Zio (August 2020):??11.8% burden, 2 morphologies prevalent Status post ablation of atrial fibrillation 10/02 ASCVD (arteriosclerotic cardiovascular disease) 07/26/2018 Overview (07/26/2018): PCI in 2005 at [facility]: stents to LAD x2, LCx [...] Encounters Date Type Department Care Team Description 09/22/2024 Refill Vascular Surgery at [place] [phone] Ana Pike, JOSE Carotid stenosis, asymptomatic, bilateral; PAD (peripheral artery disease); Left carotid artery stenosis 09/15/2024 10:55 AM EDT - 09/15/2024 3:38 PM EDT Surgery Main Operating Room [place] [phone] Lorena Chandra MD [email or web address], CAROTID, VERTEBRAL,SUBCLAVIA N W\WO PATCH GRAFT (WRVU 21.16) 09/15/2024 10:44 AM EDT Anesthesia Event Main Operating Room [place] [phone] Ugo Magana MD 09/15/2024 9:30 AM EDT [place] [phone] Pre-op testing; Stenosis of right carotid artery 09/15/2024 8:42 AM EDT - 09/16/2024 12:46 PM EDT Hospital Encounter Surgical Unit Level 4 [place] [address] Lorena Chandra MD Stenosis of right carotid artery; Pre-op testing; Carotid stenosis, right Discharge Disposition: Home 09/15/2024 Travel 09/14/2024 Travel 09/13/2024 Orders [place] [phone] Kandace Hess, MORIAH Pre-op testing; Stenosis of right carotid artery 09/13/2024 Tele[place] [phone] Sveta Rolle 09/08/2024 9:40 AM EDT Office Visit Cardiology at [address] [place] [address] Gonzales Torres MD Persistent atrial fibrillation 09/08/2024 Travel 09/08/2024 Orders Only Vascular Surgery at [place] [phone] Lorena Chandra MD Stenosis of right carotid artery; Pre-op testing 09/06/2024 3:00 PM EDT Office [place] [phone] Lorena Chandra MD Stenosis of right carotid artery 09/06/2024 12:32 PM EDT - 09/06/2024 11:59 PM EDT Hospital Encounter CT Scan at [place] [phone] Ana Pike APRN Carotid stenosis, asymptomatic, bilateral Discharge Disposition: Home 09/06/2024 12:30 PM EDT Laboratory Appointment Lab 3L [place] [phone] Carotid stenosis, asymptomatic, bilateral 09/05/2024 Travel 08/24/2024 Refill Vascular Surgery at [place] [phone] Ana Pike APRN Carotid stenosis, asymptomatic, bilateral; PAD (peripheral artery disease); Left carotid artery stenosis 08/10/2024 Orders Only Vascular Surgery at [place] [phone] Mikayla De La Rosa RN Carotid stenosis, asymptomatic, bilateral 08/09/2024 Orders [place] [phone] Ana Pike APRN Carotid stenosis, asymptomatic, bilateral 07/30/2024 4:00 PM EDT Office [place] [phone] Ana Pike APRN Carotid stenosis, asymptomatic, bilateral 07/30/2024 2:30 PM EDT Tech [place] [address] Prashant Arizmendi Carotid stenosis, asymptomatic, bilateral 07/29/2024 Travel 07/26/2024 Orders [place] [phone] Mikayla De La Rosa RN Carotid stenosis, asymptomatic, bilateral; PAD (peripheral artery disease); Left carotid artery stenosis from Last 3 Months Family History Medical [...] Sign Reading Time Taken Comments Blood Pressure 130/75 09/16/2024 11:35 AM EDT Pulse 74 09/15/2024 6:15 PM EDT Temperature 37.4 ??C (99.3 ??F) 09/16/2024 11:35 AM E DT Respiratory Rate 18 09/16/2024 11:35 AM EDT Oxygen Saturation 95% 09/16/2024 11:35 AM EDT Inhaled Oxygen Concentration - - Weight 99.1 kg (218 lb 7.6 oz) 09/16/2024 4:07 A M EDT Height 185.4 cm (6' 1) 09/15/2024 9:39 AM EDT Body Mass Index 28.82 09/15/2024 9:39 AM EDT Plan of Treatment Health Maintenance Due Date Last Done Comments Hepatitis C Screening 1963 Tetanus/Diphtheria/Pertussis Vaccines (1 - Tdap) 11/12 Zoster vaccine (1 of 2) 1995 Pneumoccocal Vaccine: 65+ (1 of 1 - PCV) 2010 Covid-19 Vaccine (1 - 2022-24 season) 2024 Influenza (Flu) vaccine (1 o f 1 - Influenza standard series) 08/01/2024 Medical Devices Implanted Type Area Handbell Choir Director Device Identifier Shelf Expiration Date Model / Serial / Lot Graft Soft Tissue 0.8x8cm Square Bovine Xenosure ([id number]) (Autoreq) - [id number] Implanted:Qty : 1 on 07/16/2023 by Lorena Chandra MD at [facility] IMPLANTS Left: Carotid [employer] - LEIM[employer]ITRE 02/25/2029 E0.8P8 / 0000 / [id number] Graft Soft Tissue 0.8x8cm Square Bovine Xenosure ([id number]) ([employer]ore[employer]) - [id number] Implanted:Qty : 1 on 09/15/2024 by Lorena Chandra MD at [facility] IMPLANTS Right: Carotid [employer] - LE[employer] 01/28/2030 E0.8P8 / 0000 / [id number] Procedures Procedure Name Priority Date/Time Associated Diagnosis Comments PHOSPHORUS Routine 09/16/2024 6:08 AM EDT MAGNESIUM Routine 09/16/2024 6:08 AM EDT BASIC METABOLIC PANEL Routine 09/16/2024 6:08 AM EDT CBC (WITH DIFF) Routine 09/16/2024 6:08 AM EDT SCAN DOC: TELEMETRY STRIPS 09/15 2:18 PM EDT CAROTID DUPLEX, UNILATERAL Routine 09/15 11:37 AM EDT Stenosis of right carotid artery BLOOD GAS ARTERIAL POC Routine 11:27 AM EDT Thromboendartectmy Neck, Neck Incis ([id number]) Yes 09/15/2024 10:44 AM EDT Stenosis of right carotid artery Pre-op testing EKG 12-LEAD Routine 09/15/2024 10:21 AM EDT Stenosis of right carotid artery Pre-op testing POC, GLUCOSE Routine 09/15/2024 9:41 AM EDT ENDART, CAROTID, VERTEBRAL,SUBCLAVIAN W\WO PATCH GRAFT, BY NECK INCIS Routine 09/15/2024 9:30 AM EDT Stenosis of right carotid artery Pre-op testing PREALBUMIN STAT 09/15/2024 9:08 AM EDT Pre-op testing Stenosis of right carotid artery BASIC METABOLIC PANEL Routine 09/15/2024 9:08 AM EDT Pre-op testing Stenosis of right carotid artery HEMOGRAM STAT 09/15/2024 9:08 AM EDT Pre-op testing Stenosis of right carotid artery IMPLANTABLE DEVICES SCAN 024 12:[address] CAROTIDS AND HABEMATOLEL OF [place] W CONTRAST Routine 09/06/2024 2:00 PM EDT Carotid stenosis, asymptomatic, bilateral CREATININE STAT 09/06/2024 12:11 PM EDT Carotid stenosis, asymptomatic, bilateral CAROTID DUPLEX, BILATERAL Routine 2023 1:27 PM EDT Carotid stenosis, asymptomatic, bilateral from Last 3 Months Results * (ABNORMAL) CBC (with Diff) (09/16/2024 6:08 AM EDT) White Blood Cell 11.53(H) 4.00 - 9.50 x10(3)/mc L 09/16/2024 6:31 AM EDT [facility] Red Blood Cell 3.70(L) 4.58 - 5.54 x10(6)/mc L 09/16/2024 6:31 AM EDT [facility] Hemoglobin 11.9(L) 13.7 - 16.5 g/dL 09/16/2024 6:31 AM [facility] Hematocrit 35.8(L) 40.5 - 48.5 % 09/16/2024 6:31 AM [facility] Mean Cell Volume 96.8(H) 82.9 - 93.1 fL 09/16/2024 6:31 AM [facility] Mean Cell Hemoglobin 32.2(H) 27.5 - 32.1 pg 09/16/2024 6:31 AM [facility] Mean Cell Hemoglobin Concentration 33.2 32.0 - 35.7 g/dL 09/16/2024 6:31 AM [facility] Platelet 173 145 - 357 x10(3)/mc L 09/16/2024 6:31 AM [facility] Mean Platelet Volume 10.6 7.6 - 12.9 fL 09/16/2024 6:31 AM [facility] RDW Standard Deviation 47.1(H) 36.0 - 45.0 fL 09/16/2024 6:31 AM [facility] RDW coefficient of variation 13.2 11.4 - 13.8 % 09/16/2024 6:31 AM [facility] NRBC% auto 0.0 % 09/16/2024 6:31 AM [facility] NRBC Absolute <0.01 <0.01 x10(3)/mc L 09/16/2024 6:31 AM [facility] Neutrophil % 72.1 % 09/16/2024 6:31 AM [facility] Neutrophil Absolute (ANC) - Automated 8.32(H) 1.70 - 6.10 x10(3)/mc L 09/16/2024 6:31 AM [facility] Lymph % 8.8 % 09/16/2024 6:31 AM [facility] Lymph Absolute 1.01 0.90 - 3.20 x10(3)/mc L 09/16/2024 6:31 AM EDT [facility] Monocyte % 8.2 % 09/16/2024 6:31 AM EDT [facility] Monocyte Absolute 0.94(H) 0.30 - 0.90 x10(3)/mc L 09/16/2024 6:31 AM EDT [facility] Eos % 10.4 % 09/16/2024 6:31 AM EDT [facility] Eos Absolute 1.20(H) 0.00 - 0.40 x10(3)/mc L 09/16/2024 6:31 AM EDT [facility] Basophil % 0.2 % 09/16/2024 6:31 AM EDT [facility] Baso Absolute <0.04 0.00 - 0.10 x10(3)/mc L 09/16/2024 6:31 AM EDT [facility] Immature Gran % 0.3 % 6:31 AM EDT [facility] Immature Gran Absolute 0.04 0.00 - 0.04 x10(3)/mc L 09/16/2024 6:31 AM EDT [facility] Blood VENOUS BLOOD SPECIMEN / Unknown IP Care Team Draw / Unknown 09/16/2024 6:08 AM EDT 09/16/2024 6:23 AM EDT Lorena Chandra MD HEMATOLOGY ORDERABLE S [facility] [place] [address] * Phosphorus (09/16/2024 6:08 AM EDT) Phosphorus 3.0 2.5 - 4.5 mg/dL 09/16/2024 6:53 AM EDT [facility] Blood VENOUS BLOOD SPECIMEN / Unknown IP Care Team Draw / Unknown 09/16/2024 6:08 AM EDT 09/16/2024 6:23 AM EDT Lorena Chandra MD CHEMISTRY ORDERABLES [facility] [place] [address] * Magnesium (09/16/2024 6:08 AM EDT) [facility] Magnesium 0.79 0.69 - 1.07 mMol/L 09/16/2024 6:53 AM EDT [facility] Blood VENOUS BLOOD SPECIMEN / Unknown IP Care Team Draw / Unknown 09/16/2024 6:08 AM EDT 09/16/2024 6:23 AM EDT Lorena Chandra MD CHEMISTRY ORDERABLES Performing Organization Address [facility] Co de Phone Number [facility] [place] [address] * (ABNORMAL) Basic Metabolic Panel (09/16/2024 6:08 AM EDT) Only the most recent of2 resultswithin the time period is included. [facility] Glucose 117 65 - 199 mg/dL 09/16/2024 7:53 AM EDT [facility] Comment:Glucose Concentratio n >=200 mg/dL plus symptoms is consistent with Diabetes Mellitus. Blood Urea Nitrogen 10 10 - 20 mg/dL 09/16/2024 7:53 AM EDT [facility] Creatinine 0.68(L) 0.80 - 1.50 mg/dL 09/16/2024 7:53 AM EDT [facility] Sodium 137 135 - 145 mMol/L 09/16/2024 7:53 AM EDT [facility] Potassium 4.2 3.5 - 5.0 mMol/L 09/16/2024 7:53 AM EDT [facility] Chloride 106 98 - 107 mMol/L 09/16/2024 7:53 [facility] Carbon Dioxide 23 22 - 31 mMol/L 09/16/2024 7:53 AM EDT [facility] Anion Gap 8 5 - 15 mMol/L 09/16/2024 7:53 AM EDT [facility] Calcium 8.9 8.5 - 10.5 mg/dL 09/16/2024 7:53 AM EDT [facility] Est Glomerular Filtration Rate - Male 95 mL/min/1. 73 m?? 09/16/2024 7:53 AM EDT [facility] Comment: This patient's estimated GFR [...] urine creatinine clearance. Assignment of CKD stage 1 - 5 for patients with an eGFR near the transition point between stages may be based on clinical assessment of muscle mass and symptoms in addition to eGFR. Link: eGFR Calculator [employer] Blood VENOUS BLOOD SPECIMEN / Unknown IP Care Team Draw / Unknown 09/16/2024 6:08 AM EDT 09/16/2024 6:23 AM EDT Lorena Chandra MD CHEMISTRY ORDERABLES Performing Organization Address City/State/[facility] Co de Phone Number [facility] [place] [address] * Scan Doc: Telemetry Strips (09/15/2024 2:18 PM EDT) Narrative 09/15/2024 2:18 PM EDT Ordered by an unspecified provider. Scanning Provider MEDIA MGR SCAN EXT O RDR/RSLT * Carotid Duplex, Unilateral (09/15/2024 11:37 AM EDT) VB Text Report Department: Vascular Surgery Lab Patient: [id number] (MIRNA FLORES) CPT: 35400 Referring Physician: LORENA CHANDRA ?? Indications: Intra-operative exam for right CEA, ? patency Findings: Right ?PSV (cm/s) ??EDV (cm/s) ??ICA/CCA ??%Stenosis ?? ICA Proximal ? 44 ?11 ?0.9 ??<15% ? CCA Distal ? 50 ?18 ? Minimal ? External Carotid Artery ?71 ? 8 ? <50% ? Interpretation: RIGHT: Widely patent carotid bifurcation with no evidence of flap or residual stenosis. Significantly improved compared to the preoperative exam performed on 07/30/2024. Previous Carotid Studies: Date ?RIGHT ICA Stenosis ??PSV ?? Ratio ?? LEFT ICA Stenosis ?? PSV ?? Ratio ? 80-99% ? 571 ?? 8.20 ? 16-49% ? 177 ?? 2.40 ? n/a ?n/a ?? n/a ?<15% ? 73 ?2.90 ? n/a ?n/a ?? n/a ?<15% ? 166 ?? 3.00 ? 70-79% ? 346 ?? 7.20 ? <15% ? 95 ?1.70 ? 70-99% ? 355 ?? 8.50 ? <15% ? 41 ?1.60 ? 70-99% ? 439 ?? 9.10 ? <15% ? 81 ?1.40 Current Exam ? <15% ? 44 ?0.90 ? n/a ?n/a ?? n/a Electronically Signed by: LORENA CHANDRA on 2024-09-18 10:19:30 AM VASCU[facility] VB Text Report End of Report [facility]AS[facility] 09/15/2024 11:3 7 AM EDT Lorena Chandra MD VASCULAR ORDERABLES [facility] * (ABNORMAL) Blood Gas, Arterial POC (09/15/2024 11:27 AM EDT) pH, Arterial 7.41 7.35 - 7.45 09/15/2024 11:42 AM EDT [facility] PCO2, Arterial 37 35 - 45 mmHg 09/15/2024 11:42 AM EDT [facility] PO2, Arterial 218(H) 85 - 104 mmHg 09/15/2024 11:42 AM EDT [facility] Bicarbonate, Arterial 23.0 20.0 - 26.0 mmol/L 09/15/2024 11:42 AM EDT [facility] Base Excess, Arterial -1.6 -3.0 - 3.0 mmol/L 09/15/2024 11:42 AM EDT [facility] Hemoglobin, Arterial 13.7 13.7 - 16.5 g/dL 09/15/2024 11:42 AM EDT [facility] Oxyhemoglobin, Arterial 98.7(H) 94.0 - 97.0 % 09/15/2024 11:42 AM EDT [facility] Carboxyhemoglobin , Arterial 0.3 % 09/15/2024 11:42 AM EDT [facility] Comment: Nonsmokers: 0.5-1.5% COHB ?? Smokers: Variable ??but usually less than 10% ?? Toxic: 20-30% COHB ?? Lethal: Greater than 60% COHB Methemoglobin, Arterial 0.4 <=1.5 % 09/15/2024 11:42 AM EDT [facility] Sodium, Arterial 137 135 - 145 mmol/L 09/15/2024 11:42 AM EDT [facility] Potassium, Arterial 4.2 3.5 - 5.0 mmol/L 09/15/2024 11:42 AM EDT [facility] Chloride, Arterial 106 98 - 107 mmol/L 09/15/2024 11:42 AM EDT [facility] Lactate, Arterial 2.0 0.5 - 2.2 mmol/L 09/15/2024 11:42 AM EDT [facility] IONIZED CALCIUM, ARTERIAL 1.21 1.15 - 1.33 mmol/L 09/15/2024 11:42 AM EDT [facility] Glucose, Arterial 136 65 - 199 mg/dL 09/15/2024 11:42 AM EDT [facility] Comment:Glucose Concentratio n >=200 mg/dL plus symptoms is consistent with Diabetes Mellitus. Blood ARTERIAL BLOOD / Unknown 09/15/2024 11:27 AM EDT 09/15/2024 11:42 AM EDT Lorena Chandra MD POINT OF CARE TEST O RDERABLES [facility] [place] [address] * EKG 12 Lead (09/15/2024 10:21 AM EDT) Ventricular rate 80 BPM MUSE SYSTEM QRS Duration 74 ms MUSE SYSTEM Q-T Interval 390 ms MUSE SYSTEM QTC Calculated (Bezet) 449 ms MUSE SYSTEM Calculated R [place] 26 degrees MUSE SYSTEM Calculated T [place] 12 degrees MUSE SYSTEM INTERPRETATION Atrial fibrillation Nonspecific T wave abnormality When compared with ECG of 08-SEP-2024 09:53, (unconfirmed) no major changes seen Confirmed by Shekhar HOOD, Raymond ([id number]) on 09/16/2024 10:46:46 AM MUSE SYSTEM 09/15/2024 10:2 1 AM EDT 09/16/2024 10:46 AM EDT Ana Pike APRN ECG ORDERABLES Performing Organization Address City/[facility]/ZIP Co de Phone Number MUSE SYSTEM * POC, GLUCOSE (09/15/2024 9:41 AM EDT) Glucometer, POC 151 65 - 199 mg/dL 09/15/2024 9:43 AM EDT [facility] Comment:Supplemental ranges: <140 mg/dL before meals <180 mg/dL all other times of the day. Blood CAPILLARY BLOOD / Unknown 09/15/2024 9:41 AM EDT 09/15/2024 9:43 AM EDT Lorena Chandra MD POINT OF CARE TEST O RDERABLES Performing Organization Address City/[facility]/ZIP Co de Phone Number [facility] [place] [address] * (ABNORMAL) Hemogram (09/15/2024 9:08 AM EDT) White Blood Cell 11.69(H) 4.00 - 9.50 x10(3)/mc L 09/15/2024 9:24 AM EDT [facility] Red Blood Cell 4.59 4.58 - 5.54 x10(6)/mc L 09/15/2024 9:24 AM EDT [facility] Hemoglobin 15.0 13.7 - 16.5 g/dL 09/15/2024 9:24 AM EDT [facility] Hematocrit 47.0 40.5 - 48.5 % 09/15/2024 9:24 AM EDT [facility] Mean Cell Volume 102.4(H) 82.9 - 93.1 fL 09/15/2024 9:24 AM EDT [facility] Mean Cell Hemoglobin 32.7(H) 27.5 - 32.1 pg 09/15/2024 9:24 AM EDT [facility] Mean Cell Hemoglobin Concentration 31.9(L) 32.0 - 35.7 g/dL 09/15/2024 9:24 AM EDT [facility] Platelet 202 145 - 357 x10(3)/mc L 09/15/2024 9:24 AM EDT [facility] Mean Platelet Volume 10.5 7.6 - 12.9 fL 09/15/2024 9:24 AM [facility] RDW Standard Deviation 50.1(H) 36.0 - 45.0 fL 09/15/2024 9:24 AM EDT [facility] RDW coefficient of variation 13.2 11.4 - 13.8 % 09/15/2024 9:24 AM [facility] NRBC% auto 0.0 % 09/15/2024 9:24 AM [facility] NRBC Absolute <0.01 <0.01 x10(3)/mc L 09/15/2024 9:24 AM EDT [facility] Blood VENOUS BLOOD SPECIMEN / Unknown Venipuncture / Unknown 09/15/2024 9:08 AM EDT 09/15/2024 9:08 AM EDT Berenice Fagan APRN HEMATOLOGY ORDERABLE S [facility] [place] [address] * Prealbumin (09/15/2024 9:08 AM EDT) Prealbumin 26 20 - 40 mg/dL 09/15/2024 10:23 AM EDT [facility] Comment:Prealbumin levels ar e generally lower in the pediatric population; adult concentrations are usually attained near puberty. Blood VENOUS BLOOD SPECIMEN / Unknown Venipuncture / Unknown 09/15/2024 9:08 AM EDT 09/15/2024 9:08 AM EDT Berenice Fagan APRN CHEMISTRY ORDERABLES [facility] [place] [address] * Scan Doc: Implantable Devices (09/15/2024 12:00 AM EDT) Narrative 09/15/2024 12:00 AM EDT Ordered by an unspecified provider. Scanning Provider MEDIA MGR SCAN EXT O RDR/RSLT * CT Angiogram Carotids & [place] (09/06/2024 2:00 PM EDT) [employer] WORKSTATION ID [id number] RAD Anatomical Region Laterality Modality Neck, Head Computed Tomogra phy Impressions 09/07/2024 11:44 AM EDT 1. ??Unchanged, severe, greater than 90% proximal right internal carotid artery stenosis. 2. ?? Interval changes of left carotid endarterectomy without residual stenosis. Left proximal external carotid artery dissection. 3. 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 I have personally reviewed the image(s) and the resident's interpretation and agree with the findings, Vivi Varela at 09/07/2024 11:44 AM Thank you for letting us participate in the care of this patient. ??If you are a health care provider and have any questions regarding this report, please contact the number below. ??For patients who have questions please contact the health primary care md that requested your imaging first. ? Narrative 09/07/2024 11:44 AM EDT EXAMINATION: CT ANGIOGRAM CAROTIDS AND HABEMATOLEL OF [place] CLINICAL HISTORY: h/o L CEA and severe R ICA stenosis I65.23, Occlusion and stenosis of bilateral carotid arteries TECHNIQUE: CTA of the head and neck performed after the intravenous administration of contrast. Administered 65.0 ml of OMNIPAQUE 350.00 mg/ml. MIP and 3-D volumetric reconstructions were created. COMPARISON: CTA carotids 05/21/2023, CTA [place] of [place] 05/20/2023, MR angiogram neck without contrast 05/19/2023, MRI brain with and without contrast 03/27/2015 FINDINGS: Arch: Combined origin of the brachiocephalic and left common carotid arteries. Calcified plaques at aortic arch and proximal right subclavian artery, contributing to mild narrowing of the right subclavian artery. Calcified plaques along the proximal left subclavian artery contributes to mild narrowing. Right carotid: Common carotid artery normal in course and caliber. Severe, greater than 90% stenosis of right ICA immediately distal to the bifurcation due to fibrofatty and calcified plaque. Cervical ICA is tortuous. Atherosclerotic calcifications of the cavernous segment contributing to up to mild to moderate narrowing Left carotid: The proximal external carotid artery demonstrates focal irregularity along its medial margin concerning for dissection. Scattered atherosclerotic calcifications of the distal common carotid artery as well as distal cervical and petrous segments of ICA without significant stenosis. Atherosclerotic calcifications of cavernous segment contributing to up to moderate narrowing with poststenotic dilatation of the supraclinoid segment. Right vertebral: Nondominant right vertebral artery with luminal irregularity in the cervical course with multifocal areas of narrowing progressing to probable occlusion at C1 to PICA origin. Calcified plaque is noted of the intradural segment. Distally to PICA origin there is opacification of the intradural vertebral artery likely due to retrograde flow with mild narrowing and irregularity. Retrograde. PICA is patent. Left vertebral: Dominant left vertebral artery. Mild stenosis at the origin due to calcified plaque. Mild mechanical narrowing at C4-5 due to facet arthropathy. Otherwise normal in course and caliber. Intracranial arteries: Hypoplastic P1 segment of the left [employer] with near left posterior communicating artery. Otherwise normal course and caliber of posterior cerebral arteries. Patent right posterior communicating artery. Branching right superior cerebellar artery. Normal course and caliber of the left superior cerebellar artery. Mild narrowing of the proximal left A1 HARRY segment. Otherwise, normal course and caliber of anterior and middle cerebral arteries. Anterior communicating artery complex is normal. Unchanged hypoattenuation of the right precentral gyrus likely representing old infarct. Mucosal thickening of the bilateral maxillary and left sphenoid sinuses. Minimal patchy opacification of the ethmoid sinuses. Minimal opacification of mastoid air cells. No ventriculomegaly or mass effect. Procedure Note Vivi Varela MD - 09/07/2024 EXAMINATION: CT ANGIOGRAM CAROTIDS AND HABEMATOLEL OF [place] CLINICAL HISTORY: h/o L CEA and severe R ICA stenosis I65.23, Occlusion and stenosis of bilateral carotid arteries TECHNIQUE: CTA of the head and neck performed after the intravenous administrationof contrast. Administered 65.0 ml of OMNIPAQUE 350.00 mg/ml. MIP and 3-Dvolumetric reconstructions were created. COMPARISON: CTA carotids 05/21/2023, CTA menominee of [place] 05/20/2023, MR angiogramneck without contrast 05/19/2023, MRI brain with and without contrast03/27/2015 FINDINGS: Arch: Combined origin of the brachiocephalic and left common carotidarteries. Calcified plaques at aortic arch and proximal right subclavian artery, contributing to mild narrowing of the right subclavian artery. Calcifiedplaques along the proximal left subclavian artery contributes to mild narrowing. Right carotid: Common carotid artery normal in course and caliber.Severe, greater than 90% stenosis of right ICA immediately distal to thebifurcation due to fibrofatty and calcified plaque. Cervical ICA is tortuous.Atherosclerotic calcifications of the cavernous segment contributing to up to mild tomoderate narrowing Left carotid: The proximal external carotid artery demonstrates focal irregularity along its medial margin concerning for dissection.Scattered atherosclerotic calcifications of the distal common carotid artery as wellas distal cervical and petrous segments of ICA without significantstenosis. Atherosclerotic calcifications of cavernous segment contributing to upto moderate narrowing with poststenotic dilatation of the supraclinoidsegment. Right vertebral: Nondominant right vertebral artery with luminalirregularity in the cervical course with multifocal areas of narrowing progressing toprobable occlusion at C1 to PICA origin. Calcified plaque is noted of theintradural segment. Distally to PICA origin there is opacification of theintradural vertebral artery likely due to retrograde flow with mild narrowing and irregularity. Retrograde. PICA is patent. Left vertebral: Dominant left vertebral artery. Mild stenosis at theorigin due to calcified plaque. Mild mechanical narrowing at C4-5 due to facetarthropathy. Otherwise normal in course and caliber. 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 Otherwise normal course and caliberof posterior cerebral arteries. Patent right posterior communicatingartery. Branching right superior cerebellar artery. Normal course and caliber ofthe left superior cerebellar artery. Mild narrowing of the proximal left A1ACA segment. Otherwise, normal course and caliber of anterior and middlecerebral arteries. Anterior communicating artery complex is normal. Unchanged hypoattenuation of the right precentral gyrus likelyrepresenting old infarct. Mucosal thickening of the bilateral maxillary and left sphenoid sinuses. Minimal patchy opacification of the ethmoid sinuses. Minimal opacification of mastoid air cells. No ventriculomegaly or mass effect. IMPRESSION 1. 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 2. Interval changes of left carotid endarterectomy without residualstenosis. Left proximal external carotid artery dissection. 3. 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 I have personally reviewed the image(s) and the resident's interpretationand agree with the findings, Vivi Varela at 09/07/2024 11:44 AM Thank you for letting us participate in the care of this patient. If youare a health care provider and have any questions regarding this report,please contact the number below. For patients who have questions please contactthe health primary care md that requested your imaging first. Ana Pike GIFT SHOP CLERK IMG CT ORDERABLES * Creatinine (09/06/2024 12:11 PM EDT) Creatinine 0.94 0.80 - 1.50 mg/dL 09/06/2024 1:21 PM EDT [facility] Est Glomerular Filtration Rate - Male 83 mL/min/1. 73 m?? 09/06/2024 1:21 PM EDT [facility] Comment: This patient's estimated GFR [...] urine creatinine clearance. Assignment of CKD stage 1 - 5 for patients with an eGFR near the transition point between stages may be based on clinical assessment of muscle mass and symptoms in addition to eGFR. Link: eGFR Calculator [employer] Blood VENOUS BLOOD SPECIMEN / Unknown Venipuncture / Unknown 09/06/2024 12:11 PM EDT 09/06/2024 12:11 PM EDT Ana Pike APRN CHEMISTRY ORDERABLES [facility] [place] [address] * Carotid Duplex, Bilateral (07/30/2024 1:27 PM EDT) VB Text Report Department: Vascular Surgery Lab Patient: [id number] (MIRNA FLORES) CPT: 67271 Referring Physician: IRAJ JENNINGS ?? Indications: f/u LT CEA and RT ICA stenosis, ? patency Findings: ICA Proximal, Right ? PSV (cm/s): 439 ? EDV (cm/s): 119 ? ICA/CCA: 9.1 ? Plaque Structure: Mixed Echogenic ? Plaque Surface: Irregular ? %Stenosis: 70-99% ICA Distal, Right ? PSV (cm/s): 61 ? EDV (cm/s): 19 ? ICA/CCA: 1.4 CCA Distal, Right ? PSV (cm/s): 44 ? EDV (cm/s): 11 ? %Stenosis: <50% CCA Proximal, Right ? PSV (cm/s): 46 ? EDV (cm/s): 9 External Carotid Artery, Right ? PSV (cm/s): 108 ? EDV (cm/s): 10 ? %Stenosis: <50% Vertebral, Right ? PSV (cm/s): 43 ? EDV (cm/s): 11 ? Direction of Flow: Antegrade ICA Proximal, Left ? PSV (cm/s): 81 ? EDV (cm/s): 24 ? ICA/CCA: 1.4 ? Plaque Structure: Echogenic ? Plaque Surface: Smooth ? %Stenosis: <15% ICA Distal, Left ? PSV (cm/s): 55 ? EDV (cm/s): 25 ? ICA/CCA: 1.0 CCA Distal, Left ? PSV (cm/s): 56 ? EDV (cm/s): 21 ? %Stenosis: Minimal CCA Proximal, Left ? PSV (cm/s): 65 ? EDV (cm/s): 19 External Carotid Artery, Left ? PSV (cm/s): 309 ? EDV (cm/s): 33 ? %Stenosis: >50% Vertebral, Left ? PSV (cm/s): 63 ? EDV (cm/s): 29 ? Direction of Flow: Antegrade Interpretation: RIGHT: There is irregular plaque in the common carotid artery causing <50% stenosis by B-mode. There is bulky irregular plaque in the proximal internal carotid artery causing 70-99% stenosis when compared to the more distal internal carotid artery. The bifurcation level is in the mid neck. Increase in peak systolic velocities compared to the previous exam (PSV 401 cm/s; previously 355 cm/s). LEFT: A thin layer of circumferential plaque is present in the common carotid artery causing minimal stenosis. There is smooth plaque in the proximal internal carotid artery causing <15% stenosis when compared to the more distal internal carotid artery. The bifurcation level is in the mid neck. No identifiable change when compared to the previous exam. Vertebral Artery Data: Patent vertebral arteries with normal antegrade Doppler waveforms and velocities bilaterally. Unable to reproduce resistive antegrade Doppler waveforms noted in the right vertebral artery. Previous Carotid Studies: Date ?RIGHT ICA Stenosis ??PSV ?? Ratio ?? LEFT ICA Stenosis ?? PSV ?? Ratio ? 80-99% ? 571 ?? 8.20 ? 16-49% ? 177 ?? 2.40 ? n/a ?n/a ?? n/a ?<15% ? 73 ?2.90 ? n/a ?n/a ?? n/a ?<15% ? 166 ?? 3.00 ? 70-79% ? 346 ?? 7.20 ? <15% ? 95 ?1.70 ? 70-99% ? 355 ?? 8.50 ? <15% ? 41 ?1.60 Current Exam ? 70-99% ? 401 ?? 9.10 ? <15% ? 81 ?1.40 Electronically Signed by: DENICE SUNSHINE on 2024-08-05 12:51:22 PM VAS[facility] VB Text Report End of Report [facility] 07/30/2024 1:27 PM EDT Iraj Jennings MD VASCULAR ORDERABLES [facility] from Last 3 Months Advance Directives Documents on File Type Date Recorded Patient Criminal Defense Attorney Expl anation Advance Directives and Livin g Will 01/28/2015 4:57 PM * Attempt Cardiopulmonary Resuscitation - Inpatient (Latest Code Status on File) Date Activated Date Inactivated Comments 09/15/2024 2:20 PM 09/16/2024 2:51 PM Question Answer Comments Code Status decision made by: Patient Content of discussion: full code * Attempt Cardiopulmonary Resuscitation - Inpatient Date Activated Date Inactivated Comments 09/15/2024 10:23 AM 09/15/2024 2:20 PM Question Answer Comments Code Status decision made by: Patient Content of discussion: full code * Attempt Cardiopulmonary Resuscitation - Inpatient Date Activated Date Inactivated Comments 07/16/2023 4:17 [...] Comments Code Status decision made by: Patient Care Teams Truck Manager Relationship Specialty Start Date End Date Mirna Barrera DO [address] [place] [address] PCP - General Family Medicine 07/01/18
--- OUTSIDE RECORDS SUMMARY | 2024-09-25 08:38 | XMS_ITS | Encounter Summary ---
Author Organization [facility] Address [address] [place] [address] Care Team Providers Care Family And Marriage Counsellor Name Role Phone Camacho Irwin MD Primary Care Provider Unav ailable Encounter Details Date Type Department Care Team (Late st Contact Info) Description 02/07/2022 Lab Requisition [facility] Pathology & Laboratory Medicine - [facility] [address] [place] [address] Outr Resulting Lab, Provider Social History Tobacco [...] Outr Resulting Lab MICROBIOLOGY - GENERAL ORDERABLES [facility] [address] [place] [address] * COVID-19 TESTING (02/06/2022 15:25 EST) COVID-19 rt-PCR Result Negative Negative 02/08/2022 12:30 EST [facility] Comment: This test has [...] performed using the lea SARS-CoV-2 assay ([employer] on the Lea 6800 System Performing Lab Lea [address] [facility] Lab 02/08/2022 12:30 EST [facility] Swab 02/06/2022 15:2 5 EST 02/07/2022 17:06 EST Provider Outr Resulting Lab MICROBIOLOGY - GENERAL ORDERABLES [facility] [address] [place] [address] documented in this encounter Visit Diagnoses Not on filedocumented in this encounter Care Teams Family And Marriage Counsellor Relationship Specialty Start Date End Date Camacho Irwin MD PCP - General 08/20/11 documented as of this encounter
--- OUTSIDE RECORDS SUMMARY | 2024-09-25 08:38 | XMS_ITS | Encounter Summary ---
Author Organization [facility] Address [address] [place] [address] Care Team Providers Care Chief Of Surgery Name Role Phone Camacho Irwin MD Primary Care Provider Unav ailable Encounter Details Date Type Department Care Team (Late st Contact Info) Description 05/04/2021 Lab Requisition [place] Pathology & Laboratory Medicine - [facility] [address] [place] [address] Outr Resulting Lab, Provider Social History Tobacco [...] MICROBIOLOGY - GENERAL ORDERABLES Performing Organization Address City/[facility]/ZIP Co de Phone Number [facility] [address] [place] [address] * COVID-19 TESTING (05/04/2021 9:45 EDT) COVID-19 rt-PCR Result Negative Negative 05/05/2021 11:32 EDT [facility] Comment: This test has [...] history, and epidemiological information. Performed on the [employer] Fusion instrument Performing Lab [place] [facility] Lab 05/05/2021 11:32 EDT [facility] Swab 05/04/2021 9:45 EDT 05/04/2021 21:45 EDT Provider Outr Resulting Lab MICROBIOLOGY - GENERAL ORDERABLES [facility] [address] [place] [address] documented in this encounter Visit Diagnoses Not on filedocumented in this encounter Care Teams Chief Of Surgery Relationship Specialty Start Date End Date Camacho Irwin MD PCP - General 08/20/11 documented as of this encounter
--- OUTSIDE RECORDS SUMMARY | 2024-09-25 08:38 | XMS_ITS | Encounter Summary ---
Author Organization [facility] Address [address] [place] [address] Care Team Providers Care Diet Technician Registered Name Role Phone Camacho Irwin MD Primary Care Provider Unav ailable Encounter Details Date Type Department Care Team (Late st Contact Info) Description 04/08/2018 Historical Results Only [facility] [address] [place] [address] [id number] Unknown, Provider, Social History Tobacco Use Types [...] EDT ?[facility] ?[address] [place], [place] [address] ? [id number] ? E C H O C A R D I O G R A M ? R E P O R T NAME: CAMACHO FLORES ? : 45 ? LOCATION: CARD ? TELEPHONE: [phone] ?MR#: [id number] ? *[facility]* *[facility]* [address] [place] [address] Date of study: 04/08/2018 Transthoracic Echocardiography M-mode, [...] ??02:05 PM. Test stop time: ??02:45 PM. MASK LAYOUT DESIGNER ??Sadia Vanegas ?? [facility] ORDERING ? Claribel Cummings *PROCEDURE DATA* Procedure information: ??The patient was identified by two identifiers. This study was interpreted by [facility] ?[facility] ?[address] [place], [place] [address] ? [id number] ? E C H O C A R D I O G R A M ? R E P O R T NAME: CAMACHO FLORES ? : 45 ? LOCATION: CARD ? TELEPHONE: [phone] ?MR#: [id number] ? [facility]. Pertinent images and digital data are archived for permanent storage and are available for subsequent review. No prior study was available for comparison. ??Study status: Routine. Transthoracic echocardiography. ??M-mode, complete 2D, complete spectral Doppler, and color Doppler. A Transthoracic Echocardiogram was performed. Scanning was performed from the parasternal, apical, subcostal, and suprasternal notch acoustic windows. Images were obtained using a [facility] IE33 2 cardiac ultrasound machine. Image quality [...] respirophasic ?[facility] ?[address] [place], [place] [address] ? [id number] ? E C H O C A R D I O G R A M ? R E P O R T NAME: CAMACHO FLORES ? : 45 ? LOCATION: CARD ? TELEPHONE: [phone] ?MR#: [id number] ? diameter changes were in the normal [...] 09/19/2019 [facility] [address] [place], [place] [address] [id number] E C H O C A R D I O G R A M R E P O R T NAME: CAMACHO FLORES : 45LOCATION: CARD TELEPHONE: [phone] MR#: [id number] [id number] *[facility]* *[facility]* [address] [place] [address] Date of study: 04/08/2018 Transthoracic Echocardiography M-mode, [...] 02:05 PM. Test stop time: 02:45 PM. MASK LAYOUT DESIGNER Sadia Vanegas [facility] ORDERING Claribel Cummings Melissa *PROCEDURE DATA* Procedure information: The patient was identified by two identifiers. This study was interpreted by [facility] [place] [facility] [address] [place] [id number] E C H O C A R D I O G R A M R E P O R T NAME: CAMACHO FLORES Zaki : 45LOCATION: CARD TELEPHONE: [phone] MR#: [id number] [facility]#:[id number] [facility]. Pertinent images and digital data are archived for permanent storage and are available for subsequent review. No prior study was available for comparison. Study status: Routine. Transthoracic echocardiography. M-mode, complete 2D, complete spectral Doppler, and color Doppler. A Transthoracic Echocardiogram was performed. Scanning was performed from the parasternal, apical, subcostal, and suprasternal notch acoustic windows. Images were obtained using a [facility] IE33 2 cardiac ultrasound machine. Image quality [...] respirophasic [facility] [address] [place], [place] [address] [id number] E C H O C A R D I O G R A M R E P O R T NAME: CAMACHO FLORES : 45LOCATION: CARD TELEPHONE: [phone] MR#: [id number] [facility]#:[id number] diameter changes were in the normal range [...] on filedocumented in this encounter Care Teams Diet Technician Registered Relationship Specialty Start Date End Date Camacho Irwin MD PCP - General 08/20/11 documented as of this encounter
--- OUTSIDE RECORDS SUMMARY | 2024-09-25 08:38 | XMS_ITS | Encounter Summary ---
Author Organization [facility] Address [address] [place] [address] Care Team Providers Care Physical Security Engineer Name Role Phone Camacho Irwin MD Primary Care Provider Unav ailable Encounter Details Date Type Department Care Team (Late st Contact Info) Description 08/20/2011 Results Only Imaging [facility] [phone] Jamie Rao MD [address] [place] [id number] Social History Tobacco Use Types Packs/Day Years [...] ?[facility] ? [address] ??[place], [place] [address] ? [phone] ? [email or web address] ?Final Interventional Cardiovascular Catheterization Report ?--- SUMMARY [...] not be stopped without consultation with a stitching machine operator. Clopidogrel (plavix) is recommended for a minimum [...] ?Weight: 95.2kg ?BSA: 2.22 Allergies: ??Additional Allergies Pre-Fund Development Manager Values: ??HCT: 42.8 ?Platelets: 204.0 ?Creatinine:.8 ? [...] distal LCX was then predilated with an [place] OTW 2.0 x 12 mm Balloon at [...] proximal Ramus was then predilated with an [place] OTW 2.0 x 12 mm Balloon at maximum inflation pressure of 18 jessica. The lesion in the proximal Ramus was successfully stented with an [place] SPIRINT 2.5 x 24 mm stent at [...] maximum inflation pressure of 8 jessica. The stent overlap was then postdilated with [...] ?[facility] ? [address] ??[place] [address] ? [phone] ? [email or web address] ?Final Diagnostic Cardiovascular Catheterization Report ?--- SUMMARY [...] ?Weight: 95.2kg ?BSA: 2.22 Allergies: ??Additional Allergies Pre-Fund Development Manager Values: ??HCT: 42.8 ?Platelets: 204.0 ?Creatinine:.8 ? [...] Procedure Note Reji Sue MD - 09/06/2011 [facility] [address] [place] [address] [phone] [email or web address] Final Diagnostic Cardiovascular Catheterization Report --- SUMMARY [...] 188cm Weight: 95.2kg BSA:2.22 Allergies: Additional Allergies Pre-Fund Development Manager Values: HCT: 42.8 Platelets: 204.0 Creatinine:.8 --- [...] arteriography was then performed using a 6F [id number] to engage the left coronary artery and [...] procedure. Signature date/time: 08/28/2011 9:16:39 AM IMPRESSION [facility] [address] [place] [address] [phone] [email or web address] Final Interventional Cardiovascular Catheterization Report --- SUMMARY [...] not be stopped without consultation with a stitching machine operator. Clopidogrel (plavix) is recommended fora minimum of [...] 188cm Weight: 95.2kg BSA:2.22 Allergies: Additional Allergies Pre-Fund Development Manager Values: HCT: 42.8 Platelets: 204.0 Creatinine:.8 --- [...] distal LCX was then predilated with an [place] OTW 2.0 x 12mm Balloon at maximum [...] proximal Ramus was then predilated with an [place] OTW 2.0x 12 mm Balloon at maximum inflation pressure of 18 jessica. The lesion in theproximal Ramus was successfully stented with an [place] SPIRINT 2.5 x 24 mm stentat maximum [...] filedocumented in this encounter Care Teams Physical Security Engineer Relationship Specialty Start Date End Date Camacho Irwin MD PCP - General 08/20/11 documented as of this encounter
--- OUTSIDE RECORDS SUMMARY | 2024-09-25 08:38 | XMS_ITS | Encounter Summary ---
Author Organization [facility] Address [address] [place] [address] Care Team Providers Care Clinical Research Tech Name Role Phone Camacho Irwin MD Primary Care Provider Unav ailable Encounter Details Date Type Department Care Team (Late st Contact Info) Description 07/10/2024 Lab Requisition [facility] Pathology & Laboratory Medicine - Main [address] [id number] Outr Resulting Lab, Provider Social History Tobacco [...] Salmonella PCR Negative Negative 07/11/2024 22:53 EDT [facility] Shigella/Enteroin vasive E. coli Negative Negative 07/11/2024 22:53 EDT [facility] HN LAB CAMPYLOBACTER PCR Negative Negative 07/11/2024 22:53 EDT [facility] Shiga Toxin PCR Negative Negative 22:53 EDT [facility] Feces SPECIMEN FROM RECTUM / Unknown 07/09/2024 12:23 EDT 07/11/2024 17:15 EDT Provider Outr Resulting Lab MICROBIOLOGY - GENERAL ORDERABLES Performing Organization Address City/State/[facility] Co de Phone Number [facility] [address] [place] [address] documented in this encounter Visit Diagnoses Not on filedocumented in this encounter Care Teams Clinical Research Tech Relationship Specialty Start Date End Date Camacho Irwin MD PCP - General 08/20/11 documented as of this encounter
--- OUTSIDE RECORDS SUMMARY | 2024-09-25 08:39 | XMS_ITS | Encounter Summary ---
[place] [address] Care Team Providers Care Washtub Worker Helper Name Role Phone Camacho Barrera DO Primary Care Provider [phone] Reason for Visit * Auth/Cert (Routine) Specialty Diagnoses / Procedures Referred By Mike johnson Referred To Contact Diagnoses Stenosis of right carotid artery Pre-op testing Carotid stenosis Procedures PRO THROMBOENDARTECTMY NECK, NECK INCIS @ENDARTERECTOMY, CAROTID, VERTEBRAL,SUBCLAVIAN W\WO PATCH GRAFT (WRVU 21.16) Ramiro Chandra MD [facility] [place] [address] [facility] Referral ID Status Reason Start Date Expiration Date Visits Re quested Visits Authorized [id number] 1 1 Encounter Details Date Type Department Care Team (Late st Contact Info) Description 09/15/2024 10:44 AM EDT Anesthesia Event [place] [id number] Ugo Magana MD [facility] [place] [address] Anesthesia Record Procedure Summary Procedure Name Responsible Anesthesiologist Anesthesia Start Time Anesthesia Stop Time @ENDARTERECTOMY, CAROTID, VERTEBRAL,SUBCLAVIA N W\WO PATCH GRAFT (WRVU 21.16) (Right: Neck) Ugo Magana MD 09/15/24 1044 09/15/24 1417 Events Date Time Event Comment 09/15/2024 1025 1044 AN Verify 1044 Start 1044 An Start Data 1053 An Induction 1100 An Intubation 1109 Anesthesia Ready 1127 ABG Data Arterial Blood Gas result: pH 7.411 pCO2 37.0 pO2 217.9 %O2 Sat 100% FiO2 67% HCO3 23.0 BE -1.6 Hb 13.7 K 4.19 Glucose 136 Lactate 2.00 1132 Procedure Start 1146 Quick Note Trouble shootin g network connections. System network outage -> vital signs not importing 1212 Quick Note Surgeon request ed SBP to be 160 mmHg 1230 Quick Note Shunt is in 1302 Vascular Clamp ON 1308 Vascular Clamp OFF 1354 Extubation/LMA Out 1406 an stop data 1409 Recovery or ICU Handoff Sandee ent care was transferred to the destination unit staff after review of the patient's medical history, current anesthetic/surgical status and plan, according to the Provider Handoff Checklist. 1417 Stop Meds Name Total fentaNYL 50 mcg lidocaine IV 50 mg propofoL 210 mg propofol INF 537.41 mg rocuronium 110 mg PHENYLephrine 1,200 mcg ePHEDrine 10 mg heparin 8,000 Units protamine 40 mg ondansetron 4 mg neostigmine 5 mg glycopyrrolate 0.8 mg clindamycin (Cleocin) 600 mg in dextrose 5% 50 mL infusion 600 mg PHENYLephrine INF 12,060 mcg esmolol 50 mg lactated ringers infusion 1,000 mL sodium chloride 0.9% 800 mL * Agents Name O2 * Blood No blood administrations on file. Lines, Drains, and Airways Type Details Placement Removal Incision 07/16/23; 1330; Left ; neck; vertical; LDA not present upon assessment; 09/16/24; 0700 07/16/23 1330 by Sydni Nash RN 09/16/24 0700 by Avril Riggs RN Urethral Catheter 07/16/23; 1658; plac ed in OR; 09/15/24; 1811 07/16/23 1658 by Bobbi Jorge RN 09/15/24 1811 by Burt Cummings RN PIV 09/15/24; 1001; 20 g auge; metacarpal vein (top of hand), right; Anatomical Landmarks; MORIAH tyson; distraction, tolerated well, appears comfortable, topical anesthetic spray applied; 09/16/24; 1147 09/15/24 1001 by Edwina Hughes RN 09/16/24 1147 by Sabra Shankar RN ETT Mask Ventilation: Ad junct (2); ETT Type: Cuffed, Oral; ETT Size: 7.5 mm; Mac Blade: 4; Notes: Asleep, Pre-O2, Stylette; Attempts: 1; Laryngoscopy Grade: 2; ETT Placement Verified By: Auscultation, Capnometry; Secured at Teeth: 24 cm; Inserted by: Chino HOOD; Removal Date: 09/15/24; Removal Time: 1354 09/15/24 1105 by Davida Del Valle CRNA 09/15/24 1354 by Davida Del Valle CRNA Arterial Line 09/15/24; 1105; radi al artery, right; 20 gauge; Ultrasound Guidance; continuous blood pressure monitoring, frequent blood gas measurement; A XIOMARA Del Valle; Sterile Prep, Sterile Gloves; 2; 09/15/24; 1811 09/15/24 1105 by Davida Del Valle CRNA 09/15/24 181 by Burt Cummings RN Urethral Catheter 09/15/24; 1110; indwelling double lumen catheter; hydrophilic coated, latex; 14; 1; 5; 10; drainage bag; 09/15/24; 1811 09/15/24 1110 by Holger Polanco RN 09/15/24 1811 by Burt Cummings RN PIV 09/15/24; 1117; 18 g auge; metacarpal vein (top of hand), left; 09/16/24; 1147 09/15/24 1117 by Davida Del Valle CRNA 09/16/24 1147 by Sabra Shankar RN documented in this encounter Social History [...] OR Notes * Anesthesia Postprocedure Evaluation - Ugo Magana MD - 09/15/2024 2:51 PM EDT Department of Anesthesiology Post-procedure Note Patient: Camacho Flores Procedure Summary Date: 09/15/24 Room / Location: [facility] OR [facility] MAIN OR Anesthesia Start: 4 Anesthesia Stop: 1416 Procedure: @ENDARTERECTOMY, CAROTID, VERTEBRAL,SUBCLAVIAN W\WO PATCH GRAFT (WRVU 21.16) (Right: Neck) Diagnosis: Stenosis of right carotid artery Pre-op testing (Carotid stenosis) Surgeons: Ramiro Chandra MD Responsible Provider: Ugo Magana MD Anesthesia Type: general ASA Status: 3 All Anesthesia Providers: Anesthesiologist: Ugo Magana MD PATTERN LEASE INSPECTOR: Davida Del Valle CRNA Vitals Value Taken Time BP Temp Pulse Resp SpO2 Pain Level Patient Location: PACU/[facility] Level of Consciousness: Conscious but Sleepy Pain Management: Satisfactory Analgesia PONV: None Cardiovascular Status: At Baseline Respiratory Status: At Baseline Postoperative Fluid Status: Intravascular EUvolemia Possible Anesthetic Complications: NONE apparent at time of evaluation Final Primary Anesthesia Type: General (The anesthetic type performed was the same as planned.) Comments: Oriented and conversant. No neuro deficits. Doing well overall * Anesthesia Preprocedure Evaluation - Ugo Magana MD - 09/14/2024 5:55 PM EDT Pre-Anesthesia Evaluation for: Camacho Flores a 78 y.o. male. Procedure(s): @ENDARTERECTOMY, CAROTID, VERTEBRAL,SUBCLAVIAN W\WO PATCH GRAFT (WRVU 21.16) Patient Active Problem List Diagnosis Date Noted ??? Left carotid artery stenosis 07/16/2023 ??? Acute ischemic stroke 05/20/2023 ??? Stroke 05/20/2023 ??? Premature ventricular beats 09/11/2022 ??? Status post ablation of atrial fibrillation 10/20/2018 ??? ASCVD (arteriosclerotic cardiovascular disease) 07/26/2018 ??? Atrial fibrillation 07/26/2018 ??? Hypertension 07/26/2018 ??? HLD (hyperlipidemia) 07/26/2018 ??? Chest pain 07/26/2018 ??? Brain abscess 01/31/2015 Past Medical History: Diagnosis Date ??? A-fib ??? Brain abscess ??? CAD (coronary artery disease) ??? HLD (hyperlipidemia) ??? HTN (hypertension) Past Surgical History: Procedure Laterality Date ??? PRO CARDIOVERSION ELECTIVE ARRHYTHMIA EXTERNAL N/A 08/28/2022 CARDIOVERSION-ELECTIVE (WRVU 2.25) performed by Fred Maki MD at [facility] MAIN OR ??? PRO STEREO BX/ASPIR/EXCIS, INTRACRANIAL LESN Right 01/27/2015 @STEREOTACTIC BX,ASP, OR EXC.-INTRACRANIAL LESION, W/SCAN performed by Jose Small MD at [facility] MAIN OR ??? PRO STEREOTACTIC CPTR ASSTD PX CRANIAL, INTRADURAL Right 01/27/2015 STEREOTACTIC COMPUTER-ASSTD NAVIGATIONAL CRANIAL INTRADURAL performed by Jose Small MD at [facility] MAIN OR ??? PRO THROMBOENDARTECTMY NECK, NECK INCIS Left 07/16/2023 @ENDARTERECTOMY, CAROTID, VERTEBRAL,SUBCLAVIAN W\WO PATCH GRAFT (WRVU 21.16) performed by Ramiro Chandra MD at [facility] MAIN OR Social History Tobacco Use ??? Smoking status: Never ??? Smokeless tobacco: Never Substance Use Topics ??? Alcohol use: Yes Alcohol/week: 14.0 standard [...] Vomiting SHRIMP only. Blotches, swelling, Shrimp ??? Ceftriaxone Other (See Comments) leukopenia ??? Keppra [Levetiracetam] Other (See Comments) leukopenia ??? Simvastatin Other (See Comments) Myalgia ??? Contrast [Iohexol] Other (See Comments) Briefly experienced feelings of throat tightness which resolved after a few seconds. Medications: MAR and/or home medications have been reviewed. Physical Exam: Preprocedure Vitals Current as of 09/14/24 1755 No BP, pulse, respiration, SpO2, or temperature recorded. Height: Weight: BMI: IBW: Airway Assessment: Mallampati: I TM distance: >3 FB Neck ROM: full Prior Gr2 Mac4 Cardiovascular Assessment: Rhythm: irregular Rate: normal Pulmonary Assessment: breath sounds clear to auscultation Dental Assessment: - normal exam Misc Assessment: Last Filed Perioperative Cognitive Screening Value Time User 4AT TOTAL Score: 0 07/17/2023 7:45 AM Malena Marin RN Anesthesia Plan: ASA 3 general, with a(n) intravenous induction Addendum 09/15/2024 (MD Chino): 78yo for R CEA for known >90% stenosis. Underwent L CEA 2022 following CVA sxs. PMH also notable for remote brain abscess with mild residual weakness (L foot?), afib (plavix, EP notes reviewed by me, TTE this year with LV 50%, mild MR, improved fn'l status recently, no palps/tachy/etc) Exam notable for 5/5 gross BLE, ? 4/5 LUE, also digits 3,4,5 on L hand do not intake rn (pt attributes to ? Duputryns or fascial process) Risks/plan reviewed. Pt requests to proceed. Discussed avoidance of lizama cath if possible (prior traumatic placement/hemorrhage). Region - Major Vascular Informed Consent: Anesthetic plan and risks discussed with patient and spouse. Plan discussed with PATTERN LEASE INSPECTOR. Anesthesia Screening documented in this encounter Plan of Treatment Not on file documented as of this encounter Visit Diagnoses Not on filedocumented in this encounter Administered Medications Inactive Administered Medications - up to 3 most recent administrations Medication Order MAR Action Action Date Dose Rate Site clindamycin (Cleocin) 600 mg in dextrose 5% 50 mL infusion 600 mg, Intravenous, SAND ANALYST TO O.R., 1 dose, On Fri09/15/24 at 1000, Administer over 20 Minutes, Do not exceed 30 mg/minute. Redose after 4 hours., Day of Surgery (Day of Procedure), Indication for (Active or Suspected): Prophylaxis Given 09/15/2024 11:19 AM EDT 600 mg ePHEDrine sulfate (5 mg/mL) multi-dose injection Intravenous, PRN, Starting on Fri09/15/24 at 1213, Until Fri09/15/24 at 1417, Anesthesia Intra-op, Routine Given 09/15/2024 12:16 PM EDT 5 mg Given 09/15/2024 12:13 PM EDT 5 mg esmoloL (Brevibloc) (10 mg/mL) injection Intravenous, PRN, Starting on Fri09/15/24 at 1055, Until Fri09/15/24 at 1417, Anesthesia Intra-op, Routine Given 09/15/2024 10:59 AM EDT 30 mg Given 09/15/2024 10:55 AM EDT 20 mg fentaNYL (pf) (50 mcg/mL) multi-dose injection Intravenous, PRN, Starting on Fri09/15/24 at 1338, Until Fri09/15/24 at 1417, Anesthesia Intra-op, Routine Given 09/15/2024 2:09 PM EDT 25 mcg Given 09/15/2024 1:38 PM EDT 25 mcg glycopyrrolate (Robinul) (0.2 mg/mL) multi-dose injection Intravenous, PRN, Starting on Fri09/15/24 at 1344, Until Fri09/15/24 at 1417, Anesthesia Intra-op, Routine Given 09/15/2024 1:44 PM EDT 0.8 mg heparin (porcine) (1,000 units/mL) injection Intravenous, PRN, Starting on Fri09/15/24 at 1211, Until Fri09/15/24 at 1417, Anesthesia Intra-op, Routine Given 09/15/2024 12:11 PM EDT 8,000 Units lactated ringers infusion 1,000 mL, at 100 mL/hr, Intravenous, CONTINUOUS, Starting on Fri09/15/24 at 1000, Until Fri09/15/24 at 2112, Day of Surgery (Day of Procedure) New Bag 09/15/2024 10:44 AM EDT lidocaine (pf) (Xylocaine) (20 mg/mL) 2% injection syringe Intravenous, PRN, Starting on Fri09/15/24 at 1053, Until Fri09/15/24 at 1417, Anesthesia Intra-op, Routine Given 09/15/2024 10:53 AM EDT 50 mg neostigmine (Bloxiver) (1 mg/mL) injection Intravenous, PRN, Starting on Fri09/15/24 at 1344, Until Fri09/15/24 at 1417, Anesthesia Intra-op, Routine Given 09/15/2024 1:44 PM EDT 5 mg ondansetron (pf) (Zofran) (2 mg/mL) injection Intravenous, PRN, Starting on Fri09/15/24 at 1350, Until Fri09/15/24 at 1417, Anesthesia Intra-op, Routine Given 09/15/2024 1:50 PM EDT 4 mg PHENYLephrine (Navid-Synephrine) (80 mcg/mL) in sodium chloride 0.9% 250 mL infusion Intravenous, CONTINUOUS PRN, Starting on Fri09/15/24 at 1109, Until Fri09/15/24 at 1417, Anesthesia Intra-op, Routine Rate/Dose Change 09/15/2024 1:30 PM EDT 60 mcg/min 45 mL/hr Rate/Dose Change 09/15/2024 1:21 PM EDT 40 mcg/min 30 mL/h r Rate/Dose Change 09/15/2024 1:19 PM EDT 30 mcg/min 22.5 mL /hr PHENYLephrine in NS (PF) (NAVID-SYNEPHRINE) 0.8 mg/10 mL (80 mcg/mL) multi-dose injection Syringe Intravenous, PRN, Starting on Fri09/15/24 at 1058, Until Fri09/15/24 at 1417, Anesthesia Intra-op, Routine Given 09/15/2024 1:48 PM EDT 80 mcg Given 09/15/2024 1:41 PM EDT 80 mcg Given 09/15/2024 1:21 PM EDT 80 mcg propofoL (Diprivan) (10 mg/mL) infusion Intravenous, CONTINUOUS PRN, Starting on Fri09/15/24 at 1111, Until Fri09/15/24 at 1417, Anesthesia Intra-op, Routine Rate/Dose Change 09/15/2024 12:24 PM EDT 30 mcg/kg/min 15.678 mL/hr New Bag 09/15/2024 11:11 AM EDT 50 mcg/kg/min 26.13 mL/ hr propofoL (Diprivan) 10 mg/mL bolus injection (Anesthesia) Intravenous, PRN, Starting on Fri09/15/24 at 1053, Until Fri09/15/24 at 1417, Anesthesia Intra-op Given 09/15/2024 1:38 PM EDT 30 mg Given 09/15/2024 11:00 AM EDT 30 mg Given 09/15/2024 10:57 AM EDT 50 mg protamine (10 mg/mL) injection Intravenous, PRN, Starting on Fri09/15/24 at 1312, Until Fri09/15/24 at 1417, Anesthesia Intra-op, Routine Given 09/15/2024 1:12 PM EDT 40 mg rocuronium (Zemuron) (10 mg/mL) multi-dose injection Intravenous, PRN, Starting on Fri09/15/24 at 1053, Until Fri09/15/24 at 1417, Anesthesia Intra-op, Routine Given 09/15/2024 12:23 PM EDT 10 mg Given 09/15/2024 10:58 AM EDT 50 mg Given 09/15/2024 10:53 AM EDT 50 mg sodium chloride 0.9% infusion Intravenous, CONTINUOUS PRN, Starting on Fri09/15/24 at 1313, Until Fri09/15/24 at 1417, Anesthesia Intra-op New Bag 09/15/2024 1:13 PM EDT documented in this encounter Care Teams Washtub Worker Helper Relationship Specialty Start Date End Date Camacho Barrera DO [address] [place] [id number] PCP - General Family Medicine 07/01/18 documented as of this encounter
--- OUTSIDE RECORDS SUMMARY | 2024-09-25 08:39 | XMS_ITS | Encounter Summary ---
[facility] [place] [address] Care Team Providers Care Clinical Pharmacy Specialist Name Role Phone Camacho Barrera DO Primary Care Provider [phone] Encounter Details Date Type Department Care Team (Latest Contact Info) Description 09/14/2024 Travel Social History Tobacco Use Types Packs/Day [...] filedocumented in this encounter Care Teams Clinical Pharmacy Specialist Relationship Specialty Start Date End Date Camacho Barrera DO [address] [place], [place] [id number] PCP - General Family Medicine 07/01/18 documented as of this encounter
--- OUTSIDE RECORDS SUMMARY | 2024-09-25 08:39 | XMS_ITS | Encounter Summary ---
Author Organization [facility] [place] [address] Care Team Providers Care Cook Barbecue Name Role Phone Camacho Barrera DO Primary Care Provider [phone] Encounter Details Date Type Department Care Team [...] on filedocumented in this encounter Care Teams Cook Barbecue Relationship Specialty Start Date End Date Camacho Barrera DO [address] [place], [place] [id number] PCP - General Family Medicine 07/01/18 documented as of this encounter
--- OUTSIDE RECORDS SUMMARY | 2024-09-25 08:39 | XMS_ITS | Encounter Summary ---
Author Organization [facility] [place] [address] Care Team Providers Care Mental Health Social Worker Name Role Phone Camacho Barrera DO Primary Care Provider [phone] Encounter Details Date Type Department Care Team [...] on filedocumented in this encounter Care Teams Mental Health Social Worker Relationship Specialty Start Date End Date Camacho Barrera DO [address] [place], [place] [id number] PCP - General Family Medicine 07/01/18 documented as of this encounter
--- OUTSIDE RECORDS SUMMARY | 2024-09-25 08:39 | XMS_ITS | Encounter Summary ---
[place] [address] Care Team Providers Care Associate Store Manager Name Role Phone Camacho Barrera DO Primary Care Provider [phone] Reason for Referral * Diagnostic Test (Routine) - Closed Specialty Diagnoses / Procedures Referred By Mike johnson Referred To Contact Diagnoses Carotid stenosis, asymptomatic, bilateral Procedures Carotid Duplex, Bilateral Deandra Tejada APRN [facility] [place] [address] [facility] [address] [place] [address] Referral ID Status Reason Start Date Expiration Date V isits Requested Visits Authorized [id number] Closed Specialty Service Requested 09/19/2023 09/18/2024 1 1 Encounter Details Date Type Department Care Team (Late st Contact Info) Description 09/19/2023 11:15 AM EDT Office [place] [address] Ramiro Chandra MD [facility] [place] [address] Carotid stenosis, asymptomatic, bilateral Social [...] Take 5 mg by mouth daily. HYDROcodone-acetaminophen (Caputa) 5-325 mg tablet Take by mouth every 6 hours as needed. clopidogreL (Plavix) 75 mg tablet Take 1 tablet by mouth daily. 90 tablet 3 clotrimazole (LOTRIMIN) 1 % Cream Apply topically as needed. 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 [...] markings Lungs: CTA Heart: RRR Extremity - [place], warm, no ulceration, brisk capillary refill, no [...] Reviewed standard warning s/s. Deandra Tejada, MSN, VEHICLE MAINTENANCE SUPERVISOR Vascular Surgery * Ramiro Chandra MD - [...] on file documented as of this encounter Results * Carotid Duplex, Bilateral (12/11/2023 1:18 PM EST) VB Text Report Department: Vascular Surgery Lab Patient: [id number] (CAMACHO FLORES) CPT: 78748 Referring Physician: DEANDRA TEJADA ?? Indications: f/u [...] bilateral documented in this encounter Care Teams Associate Store Manager Relationship Specialty Start Date End Date Camacho Barrera DO [address] [place] [address] PCP - General Family Medicine 07/01/18 documented as of this encounter
--- OUTSIDE RECORDS SUMMARY | 2024-09-25 08:39 | XMS_ITS | Encounter Summary ---
[place] [address] Care Team Providers Care Skeiner Name Role Phone Mirna Barrera DO Primary Care Provider [phone] Encounter Details Date Type Department Care Team (Latest Contact Info) Description 09/09/2023 11:44 AM EDT - 09/09/2023 11:59 PM EDT Hospital En[place] [phone] Lorena Chandra MD [facility] [place] [address] Hematuria, unspecified type Discharge Disposition: Home Social History Tobacco Use Types Packs/Day Years Used Date Smoking Tobacco: Never Smokeless Tobacco: Never Alcohol Use Standard Drinks/Week Comments Yes 14 (1 standard drink = 0.6 oz pu re alcohol) 2-3 drinks/night [facility] Inpatient Questions Answer Date Recorded Does Anyone [...] Sig Dispensed Refills Start Date End Date clotrimazole (LOTRIMIN) 1 % Cream Apply topically [...] by mouth daily. 08/04/2023 02/11/2024 HYDROcodone-acetaminoph en ([place]) 5-325 mg tablet Take by mouth every 6 hours as needed. 08/04/2023 02/11/2024 acetaminophen (Tylenol) 500 mg tablet Take 1 tablet by mouth every 4 hours as needed for Pain (For Mild Pain (1-3) or Fever.). 30 tablet 1 07/17/2023 09/08/2024 clopidogreL (Plavix) 75 mg tablet Take 1 tablet by mouth daily. 90 tablet 3 07/18/2023 07/26/2024 aspirin 81 mg chewable tablet Take 81 [...] David Madera MD at 09/09/2023 1:43 PM Electronically signed by: David Madera MD, [facility] ([phone]), at 09/09/2023 1:43 PM Thank you for letting us participate in the care of this patient. If you are a health care provider and have any questions regarding this report, please contact the number above. For patients who have questions, please contact the health primary care coordinator that requested your imaging first. ? David Madera, Staff Physician Electronically Signed Final Report ?? 09/09/2023 01:50 pm Narrative 09/09/2023 1:50 PM EDT Renal ? (Signed Final 09/09/2023 01:50 pm) PATIENT INFO: ID #: ? [id number] ?: ??[birth year] (77 yrs)(M) Name: ? MIRNA FLORES ? Visit Date: 09/09/2023 12:24 pm PERFORMED BY: Attending: ?Santy HOOD, David John Resident: ? Yuko HOOD, Marvin Tomas Performed By: ? Bijumai Thelma SANCHEZa Referred By: ?LORENA CHANDRA Location: ? [facility] SERVICE(S) PROVIDED: URETRO - Retroperitoneal Complete - [id number] ? [id number] INDICATIONS: gross hematuria COMPARISON: CT: Abdomen/Pelvis 09/09/2023 [...] 09/09/2023 01:50 pm) PATIENT INFO: ID #: [id number] : [birth year] (77 yrs)(M) Name: MIRNA FLORES Visit Date: 09/09/2023 12:24 pm PERFORMED BY: Attending: David Madera MD Resident: Marvin Huntley MD Performed By: Kiki Zamora RDMS Referred By: LORENA CHANDRA Location: [facility] SERVICE(S) PROVIDED: URETRO - Retroperitoneal Complete - [id number] INDICATIONS: gross hematuria COMPARISON: CT: Abdomen/Pelvis 09/09/2023 [...] David Madera MD at 09/09/2023 1:43 PM Electronically signed by: David Madera MD, [facility] ([phone]), at 09/09/2023 1:43 PM Thank you for letting us participate in the care of this patient. If you are a health care provider and have any questions regarding this report, please contact the number above. For patients who have questions, please contact the health primary care coordinator that requested your imaging first. David Madera, Staff Physician Electronically Signed Final Report 09/09/2023 01:50 pm Lorena Chandra MD IMG US GEN ORDERABLE S documented in this encounter Visit Diagnoses Diagnosis Hematuria, unspecified type documented in this encounter Care Teams Skeiner Relationship Specialty Start Date End Date Mirna Barrera DO [address] [place] [address] PCP - General Family Medicine 07/01/18 documented as of this encounter
--- OUTSIDE RECORDS SUMMARY | 2024-09-25 08:39 | XMS_ITS | Encounter Summary ---
[place] [address] Care Team Providers Care Warehouse Representative Name Role Phone Mirna Barrera DO Primary Care Provider [phone] Reason for Visit * Auth/Cert (Routine) Specialty Diagnoses / Procedures Referred By Contac t Referred To Contact Diagnoses Stenosis of right carotid artery Pre-op testing Carotid stenosis Procedures PRO THROMBOENDARTECTMY NECK, NECK INCIS @ENDARTERECTOMY, CAROTID, VERTEBRAL,SUBCLAVIAN W\WO PATCH GRAFT (WRVU 21.16) Lorena Chandra MD [facility] [place] [address] [facility] Referral ID Status Reason Start Date Expiration Date Visits Re quested Visits Authorized [id number] 1 1 Encounter Details Date Type Department Care Team (Late st Contact Info) Description 09/15/2024 10:55 AM EDT - 09/15/2024 3:38 PM EDT Surgery [place] [id number] Lorena Chandra MD [facility] [place] [address] @ENDARTERECTOMY, CAROTID, VERTEBRAL,SUBCLAVIAN W\WO PATCH GRAFT (WRVU [...] Sign Reading Time Taken Comments Blood Pressure 105/62 09/15/2024 3:30 PM EDT Pulse 67 09/15/2024 3:30 PM EDT Temperature 37 ??C (98.6 ??F) 09/15/2024 2:09 PM EDT Respiratory Rate 17 09/15/2024 3:30 PM EDT Oxygen Saturation 94% 09/15/2024 3:30 PM EDT Inhaled Oxygen Concentration - - Weight 98 kg (216 lb) 09/15/2024 9:39 AM EDT Height 185.4 cm (6' 1) 09/15/2024 9:39 AM EDT Body Mass Index 28.82 09/15/2024 9:39 AM EDT documented in this encounter Discharge Instructions * Patient Instructions* Trena Coy, JOSE - 09/16/2024 9:36 AM EDT You were admitted to the hospital after having a carotid endarterectomy. This operation went very well. Your physician will want you to be seen in approximately one month with a carotid ultrasound ofyour neck first. This will be scheduled and sent to you in the mail. If for some reason you don't receive this in a week, please call our office at the number below as your follow-up is very important. Please take you blood pressure twice a day in am and afternoon and record the results. If the Systolic (top number) is greater than 150, please sit or lie quietly for 25-30 minutes and retake. If it remains above 150 please call Please schedule a post operative and blood pressure check with your primary care provider to be seen in next 1-2 weeks. Please discuss urinary retention while inpatient and at home with your primary care provider. Call your doctor if: Any change in vision, numbness or inability to move any extremity, inability to speak and or a headache unresponsive to Tylenol. Activity level: up as tolerated but take it easy for a week or so. Diet: regular Driving: ok after a week if you were driving before and are able to turn head fully over shoulder without discomfort. Shower/Bath: showering or bath is ok Wound Care: wash with soap and water, careful shaving as your neck may be a little numb. This will gradually disappear. You may remove your bandage tomorrow morning (09/17/24) Please call our office at [phone] For issues on weeknights after 5pm and weekends please call [phone] and ask for the Vascular Fellow transportation sales consultant. documented in this encounter Medications at Time of Discharge Medication Sig Dispensed Refills Start Date End Date furosemide (Lasix) 20 mg tablet Take 20 mg by mouth. prn lisinopriL (Zestril) 2.5 mg tablet Take 2.5 mg by mouth daily. dilTIAZem CD (Cardizem CD) 240 mg CD (ER) 24 hr casule Take 240 mg by mouth 2 times daily. 01/14/2024 clotrimazole (LOTRIMIN) 1 % Cream Apply topically as needed. OneTouch Verio test strips Strip USE TO CHECK BLOOD GLUCOSE DAILY DIRECTED 03/19/2023 atorvastatin (Lipitor) 80 mg tablet Take 1 tablet by mouth every evening. 90 tablet 3 05/21/2023 timoloL (Timoptic) 0.5 % Drops Place 1 drop into the left eye 2 times daily. 06/19/2022 clopidogreL (Plavix) 75 mg tabletIndications:Bajwa tid stenosis, asymptomatic, bilateral,PAD (peripheral artery disease),Left carotid artery stenosis TAKE ONE TABLET BY MOUTH EVERY DAY 30 tablet 08/25/2024 09/22/2024 documented as of this encounter Progress Notes * Avril Riggs, RN - 09/16/2024 12:14 PM EDT Pt discharged to home per MD order. Patient AOx4, VSS on RA, Denies N/V, SOB, CP, pain, and numbness/tingling at time of discharge. LBM 09/15, voiding adequate urine. Patient ambulating SBA at this time. All LDA's removed as appropriate. All belongings home with patient. AVS and prescribed medications reviewed with patient, questions answered appropriately. Please see flowsheet for full assessment. Avril Riggs RN * Nguyen Cortez RN - 09/15/2024 10:55 PM EDT Four Eyes Skin Assessment Four Eyes skin assessment was performed on admission to the unit by Nguyen Shah RN and Frederick Monique RN. Patient had the following devices at the time of this assessment: BP cuff and Peripheral IV Device related pressure injury present? No All skin intact. Last Duncan Score: 18 Instructions: Add LDA for any identified wounds Add Helena image for any suspected PI or non surgical wounds Order wound consult if suspected PI identified If patient is paraplegic or quadriplegic, if duncan is 18 or less and/or otherwise indicated; please initiate Q2 turns 09/15/24 * Carlos Alexandre RN - 09/15/2024 8:52 PM EDT 2030- Pt awake alert VSS, denies pain, Dressing dry intact, Neuro intact, Pt up with assistance ambulated with walker, able to void, Pacu criteria met Report given to Nguyen MAJOR 4WC * Burt Cummings RN - 09/15/2024 6:55 PM EDT Pt arrived to PACU from OR. Connected to monitor, alarms set and reviewed. Airway maintained. Neurointact, denies headache, denies frequent swallowing or pain. Bladder scan 159 Blood pressure maintained per parameters. 1900 handoff given to Pat RN documented in this encounter Miscellaneous Notes * Initial Assessments - Domi Prabhakar RN - 09/16/2024 11:53 AM EDT Office of Care Management Initial Assessment/Discharge Note Medical record reviewed. Plan of care and patient status discussed with direct care Registered Nurse and/or Care Team in multidisciplinary rounds. Reason for Hospitalization: I had surgery on my neck Present on Admission: Carotid stenosis, right Patient receiving hospital care under Inpatient status. Admission order reviewed. 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 Payor: Induction Manager MGD MEDICARE / Plan: [place] [employer] / Product Type: *No Product type* / Secondary Insurance: N/A Prescription Coverage: Preferred Pharmacy: [id number] - [place], [place] - [address] [facility] [address] [facility] [address] [facility] Home Delivery - [facility] [address] [facility] [address] [facility] [address] Advance Care Planning: Attempt Cardiopulmonary Resuscitation - Inpatient Received - Patient's Address: [address] [place] [id number] Social & Family Supports: Extended Emergency Contact Information Primary Emergency Contact: Kisha Flores Address: [address] [place] [address] [facility] [place] Relation: Spouse Secondary Emergency Contact: Michelle Flores [facility] Relation: Child Transportation Anticipated: private car Assessment: Patient is s/p Right carotid endarterectomy. Patient with no apparent RNCM/SW needs at this time. No housing, transportation, insurance, resources concerns identified at this time. Supports in place to achieve a safe post-hospital transition. No identified barriers to accessing necessary care and/or follow-up after discharge. Plan: Patient to d/c to home via private when medically ready. Registered Nurse Systems Technologist / Enamel Burner will continue to follow patient???s progress and remain available if situation changes for coordination of care, psychosocial support and/or discharge planning. Office of Care Management Domi Prabhakar RN, BSN Case Management Work [phone] * Plan of Care - Nguyen Cortez RN - 09/15/2024 11:14 PM EDT OUTCOME EVALUATION NOTE: OUTCOME SUMMARY: Patient A&O x 4, VSS on RA. Neuros intact. Last BM was on 09/14/24. Patient voiding adequately in urinal. Patient has a dressing to right neck vertical area, CDI. Patient's pain adequately controlled, see MAR for medications given. Patient denies chest pain, SOB, N/T. Will continue to monitor and help patient reach d/c goals. PLAN MOVING FORWARD: Pain control Mobilize D/c planning INDIVIDUALIZED FALL PREVENTION: Patient is currently a low risk to Fall. Patient educated on fall/injury prevention interventions, demonstrates proper use of call hinkle and verbalizes understanding offall preventions implemented. Patient-specific fall risk factors per assessment: [current deficits]: IV Sites, Pain, Medications,Hospital Environment. Assistance [level of assistance required for transfers and ambulation]: SBA Supervision [direct monitoring required during toileting and ADLs]: Eyes on / Hands on assistance with ADL's per unit protocol Surveillance [continuous indirect monitoring]: Bed Alarm, Masimo, Purposeful Rounding, NKE Bedside Report CPG GOAL OUTCOME EVALUATION: Problem: Adult Inpatient Plan of Care Goal: Plan of Care Review Outcome: Ongoing (Interventions Implemented as Appropriate) Goal: Patient-Specific Goal (Individualized) Outcome: Ongoing (Interventions Implemented as Appropriate) Goal: Absence of Hospital-Acquired Illness or Injury Outcome: Ongoing (Interventions Implemented as Appropriate) Goal: Optimal Comfort and Wellbeing Outcome: Ongoing (Interventions Implemented as Appropriate) Goal: Readiness for Transition of Care Outcome: Ongoing (Interventions Implemented as Appropriate) documented in this encounter Plan of Treatment Not on file documented as of this encounter Procedures Procedure Name Priority Date/Time Associated Diagnosis Comments CBC (WITH DIFF) Routine 09/16/2024 6:08 AM EDT PHOSPHORUS Routine 09/16/2024 6:08 AM EDT MAGNESIUM Routine 09/16/2024 6:08 AM EDT BASIC METABOLIC PANEL Routine 09/16/2024 6:08 AM EDT CAROTID DUPLEX, UNILATERAL Routine 09/15 11:37 AM EDT Stenosis of right carotid artery BLOOD GAS ARTERIAL POC Routine 11:27 AM EDT Thromboendartectmy Neck, Neck Incis (60240) Yes 09/15/2024 10:44 AM EDT Stenosis of right carotid artery Pre-op testing EKG 12-LEAD Routine 09/15/2024 10:21 AM EDT Stenosis of right carotid artery Pre-op testing POC, GLUCOSE Routine 09/15/2024 9:41 AM EDT ENDART, CAROTID, VERTEBRAL,SUBCLAVIAN W\WO PATCH GRAFT, BY NECK INCIS Routine 09/15/2024 9:30 AM EDT Stenosis of right carotid artery Pre-op testing IMPLANTABLE DEVICES SCAN 024 12:00 AM EDT documented in this encounter Results * Phosphorus (09/16/2024 6:08 AM EDT) Phosphorus 3.0 2.5 - 4.5 mg/dL 09/16/2024 6:53 AM EDT [facility] Blood VENOUS BLOOD SPECIMEN / Unknown IP Care Team Draw / Unknown 09/16/2024 6:08 AM EDT 09/16/2024 6:23 AM EDT Lorena Chandra MD CHEMISTRY ORDERABLES [facility] [place] [address] * Magnesium (09/16/2024 6:08 AM EDT) Pathologist [facility] Magnesium 0.79 0.69 - 1.07 mMol/L 09/16/2024 6:53 AM EDT [facility] Blood VENOUS BLOOD SPECIMEN / Unknown IP Care Team Draw / Unknown 09/16/2024 6:08 AM EDT 09/16/2024 6:23 AM EDT Lorena Chandra MD CHEMISTRY ORDERABLES Performing Organization Address [facility]/[place] Co de Phone Number [facility] [place] [address] * (ABNORMAL) Basic Metabolic Panel (09/16/2024 6:08 AM EDT) [facility] Glucose 117 65 - 199 mg/dL 09/16/2024 7:53 AM EDT [facility] Comment:Glucose Concentratio n >=200 mg/dL plus symptoms is consistent with Diabetes Mellitus. Blood Urea Nitrogen 10 10 - 20 mg/dL 09/16/2024 7:53 AM EDT [facility] Creatinine 0.68(L) 0.80 - 1.50 mg/dL 09/16/2024 7:53 AM EDT [facility] Sodium 137 135 - 145 mMol/L 09/16/2024 7:53 AM EDT [facility] Potassium 4.2 3.5 - 5.0 mMol/L 09/16/2024 7:53 AM EDT [facility] Chloride 106 98 - 107 mMol/L 09/16/2024 7:53 AM EDT [facility] Carbon Dioxide 23 22 - 31 mMol/L 09/16/2024 7:53 AM EDT [facility] Anion Gap 8 5 - 15 mMol/L 09/16/2024 7:53 [facility] Calcium 8.9 8.5 - 10.5 mg/dL 09/16/2024 7:53 AM EDT [facility] Est Glomerular Filtration Rate - Male 95 mL/min/1. 73 m?? 09/16/2024 7:53 AM EDT [facility] Comment: This patient's estimated GFR [...] AM EDT Lorena Chandra MD CHEMISTRY ORDERABLES [facility] [place] [address] * (ABNORMAL) CBC (with Diff) (09/16/2024 6:08 AM EDT) White Blood Cell 11.53(H) 4.00 - 9.50 x10(3)/mc L 09/16/2024 6:31 AM EDT [facility] Red Blood Cell 3.70(L) 4.58 - 5.54 x10(6)/mc L 09/16/2024 6:31 AM EDT [facility] Hemoglobin 11.9(L) 13.7 - 16.5 g/dL 09/16/2024 6:31 AM EDT [facility] Hematocrit 35.8(L) 40.5 - 48.5 % 09/16/2024 6:31 AM EDT [facility] Mean Cell Volume 96.8(H) 82.9 - 93.1 fL 09/16/2024 6:31 AM [facility] Mean Cell Hemoglobin 32.2(H) 27.5 - 32.1 pg 09/16/2024 6:31 AM [facility] Mean Cell Hemoglobin Concentration 33.2 32.0 - 35.7 g/dL 09/16/2024 6:31 AM [facility] Platelet 173 145 - 357 x10(3)/mc L 09/16/2024 6:31 AM [facility] Mean Platelet Volume 10.6 7.6 - 12.9 fL 09/16/2024 6:31 AM [facility] RDW Standard Deviation 47.1(H) 36.0 - 45.0 fL 09/16/2024 6:31 AM [facility] RDW coefficient of variation 13.2 11.4 - 13.8 % 09/16/2024 6:31 AM [facility] NRBC% auto 0.0 % 09/16/2024 6:31 AM [facility] NRBC Absolute <0.01 <0.01 x10(3)/mc L 09/16/2024 6:31 AM [facility] Neutrophil % 72.1 % 09/16/2024 6:31 AM [facility] Neutrophil Absolute (ANC) - Automated 8.32(H) 1.70 - 6.10 x10(3)/mc L 09/16/2024 6:31 AM [facility] Lymph % 8.8 % 09/16/2024 6:31 AM [facility] Lymph Absolute 1.01 0.90 - 3.20 x10(3)/mc L 09/16/2024 6:31 AM [facility] Monocyte % 8.2 % 09/16/2024 6:31 AM [facility] Monocyte Absolute 0.94(H) 0.30 - 0.90 x10(3)/mc L 09/16/2024 6:31 AM EDT [facility] Eos % 10.4 % 09/16/2024 6:31 AM EDT [facility] Eos Absolute 1.20(H) 0.00 - 0.40 x10(3)/mc L 09/16/2024 6:31 AM EDT [facility] Basophil % 0.2 % 09/16/2024 6:31 AM EDT [facility] Baso Absolute <0.04 0.00 - 0.10 x10(3)/mc L 09/16/2024 6:31 AM EDT [facility] Immature Gran % 0.3 % 6:31 AM EDT [facility] Immature Gran Absolute 0.04 0.00 - 0.04 x10(3)/mc L 09/16/2024 6:31 AM EDT [facility] Blood VENOUS BLOOD SPECIMEN / Unknown IP Care Team Draw / Unknown 09/16/2024 6:08 AM EDT 09/16/2024 6:23 AM EDT Lorena Chandra MD HEMATOLOGY ORDERABLE S Performing Organization Address City/State/[place] Co or Phone Number [facility] [place] [address] * Carotid Duplex, Unilateral (09/15/2024 11:37 AM EDT) VB Text Report Department: Vascular Surgery Lab Patient: [id number] (MIRNA FLORES) CPT: 18039 Referring Physician: LORENA CHANDRA ?? Indications: Intra-operative [...] 7.35 - 7.45 09/15/2024 11:42 AM EDT [facility] PCO2, Arterial 37 35 - 45 mmHg 09/15/2024 11:42 AM EDT [facility] PO2, Arterial 218(H) 85 - 104 mmHg 09/15/2024 11:42 AM EDT [facility] Bicarbonate, Arterial 23.0 20.0 - 26.0 mmol/L 09/15/2024 11:42 AM EDT [facility] Base Excess, Arterial -1.6 -3.0 - 3.0 mmol/L 09/15/2024 11:42 AM EDT [facility] Hemoglobin, Arterial 13.7 13.7 - 16.5 g/dL 09/15/2024 11:42 AM EDT [facility] Oxyhemoglobin, Arterial 98.7(H) 94.0 - 97.0 % 09/15/2024 11:42 AM EDT [facility] Carboxyhemoglobin , Arterial 0.3 % 09/15/2024 11:42 AM EDT [facility] Comment: Nonsmokers: 0.5-1.5% COHB ?? Smokers: Variable ??but usually less than 10% ?? Toxic: 20-30% COHB ?? Lethal: Greater than 60% COHB Methemoglobin, Arterial 0.4 <=1.5 % 09/15/2024 11:42 AM EDT [facility] Sodium, Arterial 137 135 - 145 mmol/L 09/15/2024 11:42 AM EDT [facility] Potassium, Arterial 4.2 3.5 - 5.0 mmol/L 09/15/2024 11:42 AM EDT [facility] Chloride, Arterial 106 98 - 107 mmol/L 09/15/2024 11:42 AM EDT [facility] Lactate, Arterial 2.0 0.5 - 2.2 mmol/L 09/15/2024 11:42 AM EDT [facility] IONIZED CALCIUM, ARTERIAL 1.21 1.15 - 1.33 mmol/L 09/15/2024 11:42 AM EDT [facility] Glucose, Arterial 136 65 - 199 mg/dL 09/15/2024 11:42 AM EDT [facility] Comment:Glucose Concentratio n >=200 mg/dL plus symptoms is consistent with Diabetes Mellitus. Blood ARTERIAL BLOOD / Unknown 09/15/2024 11:27 AM EDT 09/15/2024 11:42 AM EDT Lorena Chandra MD POINT OF CARE TEST O RDERABLES [facility] [place] [address] * EKG 12 Lead (09/15/2024 10:21 AM EDT) Ventricular rate 80 BPM MUSE SYSTEM QRS Duration 74 ms MUSE SYSTEM Q-T Interval 390 ms MUSE SYSTEM QTC Calculated (Bezet) 449 ms MUSE SYSTEM Calculated R [place] 26 degrees MUSE SYSTEM Calculated T [place] 12 degrees MUSE SYSTEM INTERPRETATION Atrial fibrillation Nonspecific T wave abnormality When compared with ECG of 08-SEP-2024 09:53, (unconfirmed) no major changes seen Confirmed by Shekhar HOOD, Raymond ([id number]) on 09/16/2024 10:46:46 AM MUSE SYSTEM 09/15/2024 10:2 1 AM EDT 09/16/2024 10:46 AM EDT Ana Pike FIBRE TECHNOLOGIST ECG ORDERABLES MUSE SYSTEM * POC, GLUCOSE (09/15/2024 9:41 AM EDT) [facility] Signature Glucometer, POC 151 65 - 199 mg/dL 09/15/2024 9:43 AM EDT [facility] Comment:Supplemental ranges: <140 mg/dL before meals <180 mg/dL all other times of the day. Blood CAPILLARY BLOOD / Unknown 09/15/2024 9:41 AM EDT 09/15/2024 9:43 AM EDT Lorena Chandra MD POINT OF CARE TEST O RDERABLES [facility] [place] [address] * Scan Doc: Implantable Devices (09/15/2024 12:00 AM EDT) Narrative 09/15/2024 12:00 AM EDT Ordered by an unspecified provider. Scanning Provider MEDIA MGR SCAN EXT O RDR/RSLT documented in this encounter Visit Diagnoses Diagnosis Carotid stenosis, right- Primary Occlusion and stenosis of carotid artery without mention of cerebral infarction Stenosis of right carotid artery Occlusion and stenosis of carotid artery without mention of cerebral infarction Pre-op testing Preoperative examination, unspecified Carotid stenosis, right Occlusion and stenosis of carotid artery without mention of cerebral infarction Stenosis of right carotid artery Occlusion and stenosis of carotid artery without mention of cerebral infarction Pre-op testing Preoperative examination, unspecified documented in this encounter Admitting Diagnoses Diagnosis Carotid stenosis, right Occlusion and stenosis of carotid artery without mention of cerebral infarction documented in this encounter Administered Medications Inactive Administered Medications - up to 3 most recent administrations Medication Order MAR Action Action Date Dose Rate Site acetaminophen (Tylenol) tablet 975 mg 975 mg, Oral, EVERY 6 HOURS PRN, Starting on Fri09/15/24 at 1813, Until Tash 09/16/24 at 1446, Pain, For Mild Pain (1-3) or Fever., Maximum dose of acetaminophen is 4,000 mg from all sources in 24 hours. When ordered for pain, acetaminophen should be given even when other ordered pain medications are indicated., Routine Given 09/15/2024 6:44 PM EDT 975 mg atorvastatin (Lipitor) tablet 80 mg 80 mg, Oral, EVERY EVENING, First dose on Fri09/15/24 at 1830, Until Discontinued, Routine Given 09/15/2024 6:44 PM EDT 80 mg clopidogreL (Plavix) tablet 75 mg 75 mg, Oral, DAILY, First dose on Fri09/16/24 at 0900, Until Discontinued, Routine Given 09/16/2024 8:59 AM EDT 75 mg dilTIAZem CD (Cardizem CD) capsule 240 mg 240 mg, Oral, 2 TIMES DAILY, First dose on Fri09/15/24 at 2145, Until Discontinued, DO NOT CRUSH OR OPEN, Routine Given 09/16/2024 8:59 AM EDT 240 mg Given 09/15/2024 9:49 PM EDT 240 mg gelatin adsorbable 100 (Gelfoam) sponge PRN, Starting on Fri09/15/24 at 1133, Until Fri09/15/24 at 2112, Intra-Operative (Intra-Procedure), Routine Given 09/15/2024 11:33 AM EDT 1 each 19- Surgical Site heparin (porcine) (5,000 units/1 mL) subcutaneous injection 5,000 Units 5,000 Units, Subcutaneous, EVERY 8 HOURS SCHEDULED, First dose on Fri09/15/24 at 2200, Until Discontinued, Routine Given 09/16/2024 5:19 AM EDT 5,000 Units Given 09/15/2024 9:49 PM EDT 5,000 Units ondansetron (pf) (Zofran) (2 mg/mL) injection 4 mg 4 mg, Intravenous, EVERY 8 HOURS PRN, Starting on Fri09/15/24 at 1813, Until Tash 09/16/24 at 1446, Nausea, If multiple antiemetics are ordered, use ondansetron first, prochlorperazine second, and metoclopramide third. PO Preferred. If patient unable to take PO, may give IV if ordered. May repeat times one in 30 minutes if ineffective. Maximum daily dose = 24 mg/24 hours ondansetron (Zofran) tablet 4 mg 4 mg, Oral, EVERY 8 HOURS PRN, Starting on Fri09/15/24 at 1813, Until Tash 09/16/24 at 1446, Nausea, Vomiting, If multiple antiemetics are ordered, use ondansetron first. PO Preferred. If patient unable to take PO, may give IV if ordered. May repeat times one in 45 minutes if ineffective. , Routine tamsulosin (Flomax) capsule 0.4 mg 0.4 mg, Oral, DAILY, First dose on Tash 09/16/24 at 0900, Until Discontinued, DO NOT CRUSH OR CHEW, Routine Given 09/16/2024 8:58 AM EDT 0.4 mg thrombin (Bovine) (Thrombinar) kit PRN, Starting on Fri09/15/24 at 1133, Until Fri09/15/24 at 2112, Intra-Operative (Intra-Procedure) Given 09/15/2024 11:33 AM EDT 20,000 Units 19- Surgical Site timoloL (Timoptic) 0.5 % ophthalmic solution 1 drop 1 drop, Left Eye, 2 TIMES DAILY, First dose on Fri09/15/24 at 2215, Until Discontinued, Routine Given 09/16/2024 9:00 AM EDT 1 drop Given 09/15/2024 9:49 PM EDT 1 drop documented in this encounter Active and Recently Administered Medications Times are shown in EDT. Scheduled Medication Order 09/14/2024 09/15/2024 09/16/2024 acetaminophen (Tylenol) tablet 975 mg (COMPLETED) 975 mg, Oral, ONCE, 1 dose, On Fri09/15/24 at 1000, Administer with a SIP of water only. Maximum dose of acetaminophen is 4,000 mg from all sources in 24 hours., Day of Surgery (Day of Procedure), Routine 1000 (Given - Provider: Edwina Hughes RN) atorvastatin (Lipitor) tablet 80 mg 80 mg, Oral, EVERY EVENING, First dose on Fri09/15/24 at 1830, Until Discontinued, Routine 1844 (Given - Provider: Burt Cummings RN) clindamycin (Cleocin) 600 mg in dextrose 5% 50 mL infusion (COMPLETED) 600 mg, Intravenous, ANALYSIS OR RESEARCH SAFETY INSPECTOR TO O.R., 1 dose, On Fri09/15/24 at 1000, Administer over 20 Minutes, Do not exceed 30 mg/minute. Redose after 4 hours., Day of Surgery (Day of Procedure), Indication for (Active or Suspected): Prophylaxis 111 (Given - Provider: Davida Del Valle CRNA) clopidogreL (Plavix) tablet 75 mg 75 mg, Oral, DAILY, First dose on Tash 09/16/24 at 0900, Until Discontinued, Routine 08 (Given - Provid er: Avril Riggs RN) dilTIAZem CD (Cardizem CD) capsule 240 mg 240 mg, Oral, 2 TIMES DAILY, First dose on Fri09/15/24 at 2145, Until Discontinued, DO NOT CRUSH OR OPEN, Routine 2148 (Given - Provider: Nguyen Cortez RN) 08 (Given - Provider: Avril Riggs RN) heparin (porcine) (5,000 units/1 mL) subcutaneous injection 5,000 Units 5,000 Units, Subcutaneous, EVERY 8 HOURS SCHEDULED, First dose on Fri09/15/24 at 2200, Until Discontinued, Routine 2148 (Given - Provider: Nguyen Cortez RN) 0519 (Given - Provider: Nguyen Cortez RN) tamsulosin (Flomax) capsule 0.4 mg 0.4 mg, Oral, DAILY, First dose on Fri09/16/24 at 0900, Until Discontinued, DO NOT CRUSH OR CHEW, Routine 0858 (Given - Provid er: Avril Riggs RN) timoloL (Timoptic) 0.5 % ophthalmic solution 1 drop 1 drop, Left Eye, 2 TIMES DAILY, First dose on Fri09/15/24 at 2215, Until Discontinued, Routine 2148 (Given - Provider: Nguyen Cortez RN) 0900 (Given - Provider: Avril Riggs RN) Continuous Medication Order 09/14/2024 09/15/2024 09/16/2024 lactated ringers infusion (CANCELED) 1,000 mL, at 100 mL/hr, Intravenous, CONTINUOUS, Starting on Fri09/15/24 at 1000, Until Fri09/15/24 at 2112, Day of Surgery (Day of Procedure) 1044 (New Bag - Provider: Kelin Del Valle CRNA)1307 (Stopped - Provider: Davida Del Valle CRNA) PRN Medication Order 09/14/2024 09/15/2024 09/16/2024 acetaminophen (Tylenol) tablet 975 mg 975 mg, Oral, EVERY 6 HOURS PRN, Starting on Fri09/15/24 at 1813, Until Tash 09/16/24 at 1446, Pain, For Mild Pain (1-3) or Fever., Maximum dose of acetaminophen is 4,000 mg from all sources in 24 hours. When ordered for pain, acetaminophen should be given even when other ordered pain medications are indicated., Routine 184 (Given - Provider: Burt Cummings RN) gelatin adsorbable 100 (Gelfoam) sponge (CANCELED) PRN, Starting on Fri09/15/24 at 1133, Until Fri09/15/24 at 2112, Intra-Operative (Intra-Procedure), Routine 1133 (Given - Provider: Lorena Chandra MD) hydrALAZINE (Apresoline) (20 mg/mL) injection 10 mg 10 mg, Intravenous, EVERY 1 HOUR PRN, Starting on Fri09/15/24 at 1502, Until Tash 09/16/24 at 1446, High Blood Pressure, for blood pressure greater than 140 mmHg for maximum of 2 doses, then bee HOOD, Use if 2 doses of labetaloL ineffective in achieving goal., Routine labetaloL (Normodyne) (5 mg/mL) injection solution 10 mg 10 mg, Intravenous, EVERY 1 HOUR PRN, Starting on Fri09/15/24 at 1502, Until Tash 09/16/24 at 1446, High Blood Pressure, for SBP greater than 140 mmHg, hold for HR less than 60 beats per minute for maximum of 2 doses, then bee HOOD., May repeat 10 mg in 15 minutes once if SBP goal not achieved, Routine ondansetron (pf) (Zofran) (2 mg/mL) injection 4 mg(Linked Group 1) 4 mg, Intravenous, EVERY 8 HOURS PRN, Starting on Fri09/15/24 at 1813, Until Tash 09/16/24 at 1446, Nausea, If multiple antiemetics are ordered, use ondansetron first, prochlorperazine second, and metoclopramide third. PO Preferred. If patient unable to take PO, may give IV if ordered. May repeat times one in 30 minutes if ineffective. Maximum daily dose = 24 mg/24 hours ondansetron (Zofran) tablet 4 mg(Linked Group 1) 4 mg, Oral, EVERY 8 HOURS PRN, Starting on Fri09/15/24 at 1813, Until Tash 09/16/24 at 1446, Nausea, Vomiting, If multiple antiemetics are ordered, use ondansetron first. PO Preferred. If patient unable to take PO, may give IV if ordered. May repeat times one in 45 minutes if ineffective. , Routine thrombin (Bovine) (Thrombinar) kit (CANCELED) PRN, Starting on Fri09/15/24 at 1133, Until Fri09/15/24 at 2112, Intra-Operative (Intra-Procedure) 1133 (Given - Provider: Lorena Chandra MD) Linked Groups Order Group 1: ondansetron (Zofran) tablet 4 mgJump to med 4 mg, Oral, EVERY 8 HOURS PRN, Starting on Fri09/15/24 at 1813, Until Tash 09/16/24 at 1446, Nausea, Vomiting, If multiple antiemetics are ordered, use ondansetron first. PO Preferred. If patient unable to take PO, may give IV if ordered. May repeat times one in 45 minutes if ineffective. , Routine Or ondansetron (pf) (Zofran) (2 mg/mL) injection 4 mgJump to med 4 mg, Intravenous, EVERY 8 HOURS PRN, Starting on Fri09/15/24 at 1813, Until Tash 09/16/24 at 1446, Nausea, If multiple antiemetics are ordered, use ondansetron first, prochlorperazine second, and metoclopramide third. PO Preferred. If patient unable to take PO, may give IV if ordered. May repeat times one in 30 minutes if ineffective. Maximum daily dose = 24 mg/24 hours documented in this encounter Care Teams Warehouse Representative Relationship Specialty Start Date End Date Mirna Barrera DO [address] [place] [address] PCP - General Family Medicine 07/01/18 documented as of this encounter
--- OUTSIDE RECORDS SUMMARY | 2024-09-25 08:39 | XMS_ITS | Encounter Summary ---
[place] [address] Care Team Providers Care Traveling Inventory Associate Name Role Phone Camacho Barrera DO Primary Care Provider [phone] Encounter Details Date Type Department Care Team (Late st Contact Info) Description 12/11/2023 1:30 PM EST Tech Visit [place] [address] Jimbo Bejarano [place] Carotid stenosis, [...] Text Report Department: Vascular Surgery Lab Patient: [id number] (CAMACHO FLORES) CPT: 14442 Referring Physician: DEANDRA TEJADA ?? Indications: f/u [...] VASCULAR ORDERABLE S Performing Organization Address City/State/[facility] Co de Phone Number VASCUBASE documented in this encounter Visit Diagnoses Diagnosis Carotid stenosis, asymptomatic, bilateral documented in this encounter Care Teams Traveling Inventory Associate Relationship Specialty Start Date End Date Camacho Barrera DO [address] [place] [address] PCP - General Family Medicine 07/01/18 documented as of this encounter
--- OUTSIDE RECORDS SUMMARY | 2024-09-25 08:39 | XMS_ITS | Encounter Summary ---
Author Organization [facility] [place] [address] Care Team Providers Care Computer Technical Support Specialist Name Role Phone Camacho Barrera DO Primary Care Provider [phone] Encounter Details Date Type Department Care Team (Latest Contact Info) Description 07/29/2024 Travel Social History Tobacco Use Types Packs/Day [...] on filedocumented in this encounter Care Teams Computer Technical Support Specialist Relationship Specialty Start Date End Date Camacho Barrera DO [address] [place], [place] [id number] PCP - General Family Medicine 07/01/18 documented as of this encounter
--- OUTSIDE RECORDS SUMMARY | 2024-09-25 08:39 | XMS_ITS | Encounter Summary ---
[place] [address] Care Team Providers Care Pad Assembler Name Role Phone Camacho Barrera DO Primary Care Provider [phone] Encounter Details Date Type Department Care Team (Late st Contact Info) Description 09/08/2024 Orders Only [place] [address] Ramiro Chandra MD [facility] [place] [address] Stenosis of right carotid artery; Pre-op testing Social History Tobacco Use Types Packs/Day Years Used Date Smoking Tobacco: Never Smokeless Tobacco: Never Alcohol Use Standard Drinks/Week Comments Yes 14 (1 standard drink = 0.6 oz pu re alcohol) 2-3 drinks/night [facility] Inpatient Questions Answer Date Recorded Does [...] this encounter Results * EKG 12 Lead (09/15/2024 10:21 AM EDT) Ventricular rate 80 BPM MUSE SYSTEM QRS Duration 74 ms MUSE SYSTEM Q-T Interval 390 ms MUSE SYSTEM QTC Calculated (Bezet) 449 ms MUSE SYSTEM Calculated R [place] 26 degrees MUSE SYSTEM Calculated T [place] 12 degrees MUSE SYSTEM INTERPRETATION Atrial fibrillation Nonspecific T wave abnormality When compared with ECG of 08-SEP-2024 09:53, (unconfirmed) no major changes seen Confirmed by Raymond Corrigan MD (1970) on 09/16/2024 10:46:46 AM MUSE SYSTEM 09/15/2024 10:2 1 AM EDT 09/16/2024 10:46 AM EDT Ana Pike SCRAP PREPARER ECG ORDERABLES MUSE SYSTEM documented in this encounter Visit Diagnoses Diagnosis Stenosis of right carotid artery Occlusion and stenosis of carotid artery without mention of cerebral infarction Pre-op testing Preoperative examination, unspecified documented in this encounter Care Teams Pad Assembler Relationship Specialty Start Date End Date Camacho Barrera DO [address] [place] [address] PCP - General Family Medicine 07/01/18 documented as of this encounter
--- OUTSIDE RECORDS SUMMARY | 2024-09-25 08:39 | XMS_ITS | Encounter Summary ---
[place] [address] Care Team Providers Care Home Theater Expert Name Role Phone Camacho Barrera DO Primary Care Provider [phone] Encounter Details Date Type Department Care Team (Late st Contact Info) Description 07/26/2024 Orders [place] [address] Mikayla De La Rosa RN Carotid stenosis, asymptomatic, bilateral; PAD (peripheral artery disease); Left carotid artery stenosis Social History Tobacco Use Types Packs/Day Years Used Date Smoking Tobacco: Never Smokeless Tobacco: Never Alcohol Use Standard Drinks/Week Comments Yes 14 (1 standard drink = 0.6 oz pu re alcohol) 2-3 drinks/night [facility] Inpatient Questions Answer Date Recorded Does Anyone [...] infarction documented in this encounter Care Teams Home Theater Expert Relationship Specialty Start Date End Date Camacho Barrera DO [address] [place] [address] PCP - General Family Medicine 07/01/18 documented as of this encounter
--- OUTSIDE RECORDS SUMMARY | 2024-09-25 08:39 | XMS_ITS | Encounter Summary ---
[place] [address] Care Team Providers Care Lubrication Servicer Name Role Phone Camacho Barrera DO Primary Care Provider [phone] Encounter Details Date Type Department Care Team (Late st Contact Info) Description 11/25/2023 Telephone [place] [id number] Nelia Case Social History Tobacco Use Types Packs/Day Years Used Date Smoking Tobacco: Never Smokeless Tobacco: Never Alcohol Use Standard Drinks/Week Comments Yes 14 (1 standard drink = 0.6 oz pu re alcohol) 2-3 drinks/night [facility] Inpatient Questions Answer Date Recorded [...] on filedocumented in this encounter Care Teams Lubrication Servicer Relationship Specialty Start Date End Date Camacho Barrera DO [address] [place] [address] PCP - General Family Medicine 07/01/18 documented as of this encounter
--- OUTSIDE RECORDS SUMMARY | 2024-09-25 08:39 | XMS_ITS | Encounter Summary ---
Author Organization [facility] [place] [address] Care Team Providers Care Medtronics Technician Name Role Phone Camacho Barrera DO Primary Care Provider [phone] Encounter Details Date Type Department Care Team [...] on filedocumented in this encounter Care Teams Medtronics Technician Relationship Specialty Start Date End Date Camacho Barrera DO [address] [place], [place] [id number] PCP - General Family Medicine 07/01/18 documented as of this encounter
--- OUTSIDE RECORDS SUMMARY | 2024-09-25 08:39 | XMS_ITS | Encounter Summary ---
[place] [address] Care Team Providers Care Overcaster Name Role Phone Camacho Barrera DO Primary Care Provider [phone] Encounter Details Date Type Department Care Team (Late st Contact Info) Description 09/13/2024 Telephone [place] [address] Sveta Rolle Social History Tobacco Use Types Packs/Day Years Used Date Smoking Tobacco: Never Smokeless Tobacco: Never Alcohol Use Standard Drinks/Week Comments Yes 14 (1 standard drink = 0.6 oz pu re alcohol) 2-3 drinks/night [facility] Inpatient Questions Answer Date Recorded [...] * Telephone Encounter - Sveta Rolle - 09/13/2024 11:12 AM EDT I spoke with Tomas - we have scheduled his procedure with Dr. Chandra to be on 09/15/24. documented in this encounter Plan of Treatment Not on file documented as of this encounter Visit Diagnoses Not on filedocumented in this encounter Care Teams Overcaster Relationship Specialty Start Date End Date Camacho Barrera DO [address] [place] [address] PCP - General Family Medicine 07/01/18 documented as of this encounter
--- OUTSIDE RECORDS SUMMARY | 2024-09-25 08:39 | XMS_ITS | Encounter Summary ---
Author Organization [facility] [place] [address] Care Team Providers Care Lathing Supervisor Name Role Phone Camacho Barrera DO Primary Care Provider [phone] Encounter Details Date Type Department Care Team [...] on filedocumented in this encounter Care Teams Lathing Supervisor Relationship Specialty Start Date End Date Camacho Barrera DO [address] [place], [place] [id number] PCP - General Family Medicine 07/01/18 documented as of this encounter
--- OUTSIDE RECORDS SUMMARY | 2024-09-25 08:39 | XMS_ITS | Encounter Summary ---
Author Organization [facility] [place] [address] Care Team Providers Care Bronc Buster Name Role Phone Camacho Barrera DO Primary Care Provider [phone] Reason for Visit * Reason Comments Atrial Fibrillation Congestive Heart Failure Encounter Details Date Type Department Care Team (Late st Contact Info) Description 02/11/2024 10:20 AM EDT Office Visit Cardiology at [address] [place] [address] Gonzales Torres MD [facility] [address] [address] Persistent atrial fibrillation Social History Tobacco Use [...] Electrophysiology Consult Patient ID Camacho Flores [id number] Camacho Flores is following up in the [...] he ended up in the ED at [facility] with atrial fibrillation with rapid [...] Take 5 mg by mouth daily. HYDROcodone-acetaminophen ([place]) 5-325 mg tablet Take by mouth every 6 hours as needed. 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 Social Determinants of Health Financial Resource [...] General: Skin is warm. Comments: Left chest body bumper in place Neurological: General: No focal deficit [...] congestive heart failure, and was treated at [facility], with diuresis, and changed to rate control [...] obtain copies of the results of his body bumper (which he is wearing currently) GONZALES TORRES MD Cardiac Electrophysiology [facility] [place] 20 minutes were spent preparing to see [...] fibrillation documented in this encounter Care Teams Bronc Buster Relationship Specialty Start Date End Date Camacho Barrera DO [address] [place] [address] PCP - General Family Medicine 07/01/18 documented as of this encounter
--- OUTSIDE RECORDS SUMMARY | 2024-09-25 08:39 | XMS_ITS | Encounter Summary ---
[place] [address] Care Team Providers Care Pin Drafting Machine Operator Name Role Phone Camacho Barrera DO Primary Care Provider [phone] Reason for Referral * Diagnostic Test (Routine) - Closed Specialty Diagnoses / Procedures Referred By Mike johnson Referred To Contact Radiology Diagnoses Carotid stenosis, asymptomatic, bilateral Procedures CT Angiogram Carotids & [place] Ana Pike APRN [facility] [place] [address] [facility] [place] [address] Referral ID Status Reason Start Date Expiration Date V isits Requested Visits Authorized [id number] Closed Specialty Service Requested 08/09/2024 02/06/2026 1 1 Reason for Visit * Diagnostic Test (Routine) - Closed Specialty Diagnoses / Procedures Referred By Mike johnson Referred To Contact Radiology Diagnoses Carotid stenosis, asymptomatic, bilateral Procedures CT Angiogram Carotids & [place] Ana Pike APRN [facility] [place] [address] [facility] [place] [address] Referral ID Status Reason Start Date Expiration Date V isits Requested Visits Authorized [id number] Closed Specialty Service Requested 08/09/2024 02/06/2026 1 1 Encounter Details Date Type Department Care Team (Latest Contact Info) Description 09/06/2024 12:32 PM EDT - 09/06/2024 11:59 PM EDT Hospital [place] [address] Ana Pike, JOSE [facility] [place] [address] Carotid stenosis, asymptomatic, bilateral Discharge Disposition: Home Social History Tobacco Use [...] MOUTH EVERY DAY 30 tablet 08/25/2024 09/22/2024 fluorouraciL (EFUDEX) 5 % Cream Apply topically 2 times daily. 09/08/2024 acetaminophen (Tylenol) 500 mg tablet Take 1 tablet by mouth every 4 hours as needed for Pain (For Mild Pain (1-3) or Fever.). 30 tablet 1 07/17/2023 09/08/2024 documented as of this encounter Progress Notes * Jordon Oropeza MD - 09/06/2024 1:54 PM EDT DOCUMENTATION OF INTRAVENOUS CONTRAST REACTION Date and Time of Reaction: 09/06/2024 8243 Intravenous Contrast Material: OMNIPAQUE (IOHEXOL) Volume Administered: 65 cc History / Sequence of Events: After the routine administration of intravenous IODINATED contrast, the patient experienced throat tightness which resolved after a few seconds. Physical Exam: General: well developed and well nourished, non-toxic, in no respiratory distress and acyanotic, alert, oriented times 3, and normal vitals Heart: normal rate and regular rhythm Chest: clear to auscultation, no wheezes, rales or rhonchi, symmetric air entry, no tachypnea, retractions or cyanosis Skin: No hives / erythema Vital Signs: HR: 74 BP: 128/84 RR: 18 SPO2: 99% on room air Treatment(s) administered: Observation alone; All medications were ordered via the General Hypersensitivity Reaction Focused Order Set (1366). Assessment: 78 y.o. male with a Mild allergic-like contrast reaction after routine administration of IV contrast for a CT scan. Plan / Disposition: Discharge home from CT Reaction entered into allergies in electronic medical record. Patient had a mild contrast reaction; patient is a candidate for future contrast administration with steroid pretreatment ([facility] Protocol) Jordon Oropeza MD 09/06/2024 documented in this encounter Plan of Treatment Not on file documented as of this encounter Procedures Procedure Name Priority Date/Time Associated Diagnosis Comments CT CAROTIDS AND [place] W CONTRAST Routine 09/06/2024 2:00 PM EDT Carotid stenosis, asymptomatic, bilateral documented in this encounter Results * CT Angiogram Carotids & [place] (09/06/2024 2:00 PM EDT) WORKSTATION ID [id number] RAD Anatomical Region Laterality Modality Neck, Head [...] who have questions please contact the health hemodialysis patient care specialist that requested your imaging first. ? Narrative 09/07/2024 11:44 AM EDT EXAMINATION: CT ANGIOGRAM CAROTIDS AND [place] OF [place] CLINICAL HISTORY: h/o L CEA and severe R ICA stenosis I65.23, Occlusion and stenosis of bilateral carotid arteries TECHNIQUE: CTA of the head and neck performed after the intravenous administration of contrast. Administered 65.0 ml of OMNIPAQUE 350.00 mg/ml. MIP and 3-D volumetric reconstructions were created. COMPARISON: CTA carotids 05/21/2023, CTA [place] 05/20/2023, MR angiogram neck without contrast 05/19/2023, [...] arteries: Hypoplastic P1 segment of the left PROOF READER with near left posterior communicating artery. Otherwise [...] - 09/07/2024 EXAMINATION: CT ANGIOGRAM CAROTIDS AND [place] CLINICAL HISTORY: h/o L CEA and severe R ICA stenosis I65.23, Occlusion and stenosis of bilateral carotid arteries TECHNIQUE: CTA of the head and neck performed after the intravenous administrationof contrast. Administered 65.0 ml of OMNIPAQUE 350.00 mg/ml. MIP and 3-Dvolumetric reconstructions were created. COMPARISON: CTA carotids 05/21/2023, CTA [place] 05/20/2023, MR angiogramneck without contrast 05/19/2023, MRI [...] arteries: Hypoplastic P1 segment of the left PROOF READER with nearfetal left posterior communicating artery. Otherwise [...] patients who have questions please contactthe health hemodialysis patient care specialist that requested your imaging first. Ana Pike APRN IMG CT ORDERABLES documented in this encounter Visit Diagnoses Diagnosis Carotid stenosis, asymptomatic, bilateral documented in this encounter Administered Medications Inactive Administered Medications - up to 3 most recent administrations Medication Order MAR Action Action Date Dose Rate Site iohexoL (Omnipaque) (350 mg/mL) solution 0-200 mL 0-200 mL, Intravenous, ONCE PRN, 1 dose, Starting on Fri09/06/24 at 1324, Until Fri09/06/24 at 1350, Per Protocol, Warning Vesicant/Irritant Medication , Radiology Contrast, Routine Given 09/06/2024 1:50 PM EDT 65 mLs documented in this encounter Care Teams Pin Drafting Machine Operator Relationship Specialty Start Date End Date Camacho Barrera DO [address] [place] [address] PCP - General Family Medicine 07/01/18 documented as of this encounter
--- OUTSIDE RECORDS SUMMARY | 2024-09-25 08:39 | XMS_ITS | Encounter Summary ---
[place] [address] Care Team Providers Care Engineered Wood Designer Name Role Phone Camacho Barrera DO Primary Care Provider [phone] Reason for Referral * Diagnostic Test (Routine) - Closed Specialty Diagnoses / Procedures Referred By Mike t Referred To Contact Diagnoses Carotid stenosis, asymptomatic, bilateral Procedures Carotid Duplex, Bilateral Kaia Stahl PA [facility] [place] [address] [facility] Vascular Lab [address] [address] Referral ID Status Reason Start Date Expiration Date V isits Requested Visits Authorized [id number] Closed Specialty Service Requested 12/11/2023 12/10/2024 1 1 Encounter Details Date Type Department Care Team (Late st Contact Info) Description 12/11/2023 2:30 PM EST Office Visit [place] [address] Kaia Stahl PA [facility] [place] [address] Carotid stenosis, asymptomatic, bilateral Social History Tobacco [...] had continuous nose bleeds and 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 He is followingup with them [...] 2 times daily. For 7 days HYDROcodone-acetaminophen ([place]) 5-325 mg tablet Take by mouth every [...] 1 % Cream Apply topically as needed. [employer] Verio test strips Strip USE TO CHECK [...] Center 02/11/2024 10:20 AM Gonzales Torres MD [facility] Kaia Stahl PA-C Department of Vascular Surgery documented in this encounter Plan of Treatment Not on file documented as of this encounter Results * Carotid Duplex, Bilateral (07/30/2024 1:27 PM EDT) VB Text Report Department: Vascular Surgery Lab Patient: [id number] (CAMAHCO FLORES) CPT: [id number] Referring Physician: CLAUDIA JENNINGS ?? Indications: f/u LT CEA and [...] of Report VASCUBASE 07/30/2024 1:27 PM EDT Claudia Jennings MD VASCULAR ORDERABLES VASCUBASE documented in this encounter Visit Diagnoses Diagnosis Carotid stenosis, asymptomatic, bilateral documented in this encounter Care Teams Engineered Wood Designer Relationship Specialty Start Date End Date Camacho Barrera DO [address] [place] [address] PCP - General Family Medicine 07/01/18 documented as of this encounter
--- OUTSIDE RECORDS SUMMARY | 2024-09-25 08:39 | XMS_ITS | Encounter Summary ---
[place] [address] Care Team Providers Care Railway Switch Operator Name Role Phone Camacho Barrera DO Primary Care Provider [phone] Reason for Visit * Diagnostic Test (Routine) - Closed Specialty Diagnoses / Procedures Referred By Mike johnson Referred To Contact Diagnoses Carotid stenosis, asymptomatic, bilateral Procedures Carotid Duplex, Bilateral Kaia Stahl PA [facility] [place] [address] [facility] [address] [place] [address] Referral ID Status Reason Start Date Expiration Date V isits Requested Visits Authorized [id number] Closed Specialty Service Requested 12/11/2023 12/10/2024 1 1 Encounter Details Date Type Department Care Team (Late st Contact Info) Description 07/30/2024 2:30 PM EDT Tech [place] [address] Prashant Arizmendi Carotid stenosis, asymptomatic, bilateral Social History Tobacco Use Types Packs/Day Years Used Date Smoking Tobacco: Never Smokeless Tobacco: Never Alcohol Use Standard Drinks/Week Comments Yes 14 (1 standard drink = 0.6 oz pu re alcohol) 2-3 drinks/night [facility] Inpatient Questions Answer Date Recorded Does Anyone [...] Associated Diagnosis Comments CAROTID DUPLEX, BILATERAL Routine 07/30/2024 1:27 PM EDT Carotid stenosis, asymptomatic, bilateral documented in this encounter Results * Carotid Duplex, Bilateral (07/30/2024 1:27 PM EDT) VB Text Report Department: Vascular Surgery Lab Patient: [id number] (CAMACHO FLORES) CPT: 29606 Referring Physician: CLAUDIA JENNINGS ?? Indications: f/u [...] ? 81 ?1.40 Electronically Signed by: DENICE SNUSHINE on 2024-08-05 12:51:22 PM VASCUBASE VB Text Report End of Report [facility] 07/30/2024 1:27 PM EDT Claudia Jennings MD VASCULAR ORDERABLES [facility] documented in this encounter Visit Diagnoses Diagnosis Carotid stenosis, asymptomatic, bilateral documented in this encounter Care Teams Railway Switch Operator Relationship Specialty Start Date End Date Camacho Barrera DO [address] [facility] [place] [address] PCP - General Family Medicine 07/01/18 documented as of this encounter
--- OUTSIDE RECORDS SUMMARY | 2024-09-25 08:39 | XMS_ITS | Encounter Summary ---
Author Organization [facility] [place] [address] Care Team Providers Care Straw Hat Plunger Operator Name Role Phone Camacho Barrera DO Primary Care Provider [phone] Encounter Details Date Type Department Care Team (Latest Contact Info) Description 09/08/2024 Travel Social History Tobacco Use Types Packs/Day [...] on filedocumented in this encounter Care Teams Straw Hat Plunger Operator Relationship Specialty Start Date End Date Camacho Barrera DO [address] [place], [place] [id number] PCP - General Family Medicine 07/01/18 documented as of this encounter
--- OUTSIDE RECORDS SUMMARY | 2024-09-25 08:39 | XMS_ITS | Encounter Summary ---
Author Organization [facility] [place] [address] Care Team Providers Care Money Order Clerk Name Role Phone Camacho Barrera DO Primary Care Provider [phone] Reason for Visit * Reason Comments Atrial Fibrillation Congestive Heart Failure Encounter Details Date Type Department Care Team (Late st Contact Info) Description 09/08/2024 9:40 AM EDT Office Visit Cardiology at [address] [place] [address] Gonzales Torres MD [facility] [place] [address] Persistent atrial fibrillation Social History Tobacco Use [...] Sign Reading Time Taken Comments Blood Pressure 114/71 09/08/2024 9:49 AM EDT Pulse 70 09/08/2024 9:49 AM EDT per e cg Temperature - - Respiratory Rate - - Oxygen Saturation - - Inhaled Oxygen Concentration - - Weight 98 kg (216 lb) 09/08/2024 9:49 AM EDT Height 185.4 cm (6' 1) 09/08/2024 9:49 AM EDT Body Mass Index 28.5 09/08/2024 9:49 AM EDT documented in this encounter Progress Notes * Gonzales Torres MD - 09/08/2024 9:40 AM EDT Images from the original note were not included. Clinical Cardiac Electrophysiology Consult Patient ID Camacho Flores [id number] Camacho Flores is following up in the [...] some other macroreentrant perivalvular circuit. He is interested in having this mapped and ablated, given that it has impacted his exertional tolerance and stamina...' Echo: 05/2023 - LVEF 65%, mitral valve serverely calcified Echo: 01/2024 - LVEF 55-60%, no wall motion abnormalities, mild MR He has previously had issues with dofetilide (QT prolongation); metoprolol (fatigue); amiodarone (fatigue) We decided at his last visit that rate control of persistent/possible permanent atrial fibrillationwas a reasonable strategy. We had restarted his Xarelto. He has been off amiodarone Carotid duplex in Jul 2024 - bulky irregular plaque in the R Carotid (70-99%) He saw Dr. Ramiro Chandra in the vascular surgery clinic on 09/06, there is now a plan to proceed with right carotid revascularization. No lightheadedness, dizziness or syncope. No chest pain. No heart failure symptoms (no edema, PND, orthopnea) Weight stable Mostly muscle pain./ back pain - walks around the house 150-200 feet Problem List Patient Active Problem List Diagnosis Left carotid artery stenosis Acute ischemic stroke Stroke Premature ventricular beats Zio (December 2018): 8.6% burden, 2 morphologies prevalent Zio (August 2020): 11.8% burden, 2 morphologies prevalent Status post ablation of atrial fibrillation ASCVD (arteriosclerotic cardiovascular disease) PCI in 2005 at [facility]: stents to LAD x2, LCx x2, ramus [...] Negative for weight gain and weight loss. HENT: Positive for nosebleeds. Cardiovascular: Positive for dyspnea on exertion. Negative for palpitations. Musculoskeletal: Positive for arthritis and back pain. Meds Current Outpatient Medications Medication Sig Dispense Refill clopidogreL (Plavix) 75 mg tablet TAKE ONE TABLET BY MOUTH EVERY DAY 30 tablet 0 furosemide (Lasix) 20 mg tablet Take 20 mg by mouth. prn lisinopriL (Zestril) 2.5 mg tablet Take 2.5 mg by mouth daily. dilTIAZem CD (Cardizem CD) 240 mg CD (ER) 24 hr casule Take 240 mg by mouth 2 times daily. clotrimazole (LOTRIMIN) 1 % Cream Apply topically as needed. [employer] Verio test strips Strip USE TO CHECK BLOOD GLUCOSE DAILY DIRECTED atorvastatin (Lipitor) 80 mg tablet Take 1 tablet by mouth every evening. 90 tablet 3 timoloL (Timoptic) 0.5 % Drops Place 1 drop into the left eye 2 times daily. No current facility-administered medications for this visit. 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 HENT: Mouth/Throat: Pharynx: No oropharyngeal exudate. Eyes: Conjunctiva/sclera: Conjunctivae normal. Cardiovascular: Rate and Rhythm: Normal rate. Rhythm irregular. Pulses: Normal pulses. Pulmonary: Effort: Pulmonary effort is normal. Skin: General: Skin is warm. Neurological: General: No focal deficit present. Mental Status: He is alert. Psychiatric: Mood and Affect: Mood normal. I have personally reviewed the ECG: Atrial fibrillation - average ventricular rate 70 bpm Impression Camacho Flores is seen in the EP clinic for follow-up of his paroxysmal atrial fibrillation. He is a former patient of Dr Nelson. He had an atrial fibrillation ablation (incomplete posterior wall isolation, cavotricuspid isthmus ablation), in 2018. At his last visit, we had discussed that rate control of his atrial fibrillation seemed reasonable;we had encouraged that he restart Xarelto - he has had mostly nosebleeds on the combination of meds, but his [id number] score is high enough to warrant formal anticoagulation Recommendations / Plan A) No changes to current medications B) Could be considered for restarting Xarelto; or consider WATCHMAN C) No routine follow up planned - can see SANTINO TORRES MD Cardiac Electrophysiology [facility] 20 minutes were spent preparing to see [...] fibrillation documented in this encounter Care Teams Money Order Clerk Relationship Specialty Start Date End Date Camacho Barrera DO [address] [place] [address] PCP - General Family Medicine 07/01/18 documented as of this encounter
--- OUTSIDE RECORDS SUMMARY | 2024-09-25 08:39 | XMS_ITS | Encounter Summary ---
[place] [address] Care Team Providers Care Securities Trader Name Role Phone Mirna Barrera DO Primary Care Provider [phone] Reason for Referral * Diagnostic Test (Routine) - New Request Specialty Diagnoses / Procedures Referred By Mike johnson Referred To Contact Diagnoses Carotid stenosis, right Procedures Carotid Duplex, Unilateral Trena Coy APRN [facility] [place] [address] [facility] [address] [address] Referral ID Status Reason Start Date Expiration Date Visits Requested Visits Authorized [id number] New Request Specialty Service Requested 09/16/2025 1 1 Reason for Visit * Auth/Cert (Routine) Specialty Diagnoses / Procedures Referred By Mike johnson Referred To Contact Diagnoses Stenosis of right carotid artery Pre-op testing Carotid stenosis Procedures PRO THROMBOENDARTECTMY NECK, NECK INCIS @ENDARTERECTOMY, CAROTID, VERTEBRAL,SUBCLAVIAN W\WO PATCH GRAFT (WRVU 21.16) Lorena Chandra MD [facility] [place] [address] [facility] Referral ID Status Reason Start Date Expiration Date Visits Re quested Visits Authorized [id number] 1 1 Encounter Details Date Type Department Care Team (Latest Contact Info) Description 09/15/2024 8:42 AM EDT - 09/16/2024 12:46 PM EDT Hospital Encounter Surgical Unit Level [address] [place] [address] Lorena Chandra MD [facility] [place] [address] Stenosis of right carotid artery; Pre-op testing; Carotid stenosis, right Discharge Disposition: Home Social History Tobacco Use [...] encounter Discharge Instructions * Patient Instructions* Trena Coy APRN - 09/16/2024 9:36 AM EDT You were [...] morning (09/17/24) Please call our office at [phone] For issues on weeknights after 5pm and weekends please call [phone] and ask for the Vascular Fellow monument mason. documented in this encounter Medications at Time [...] of this encounter Progress Notes * Avril Riggs RN - 09/16/2024 12:14 PM EDT Pt [...] unit by Nguyen Shah RN and Frederick Johnson RN. Patient had the following devices at the time of this assessment: BP cuff and Peripheral IV Device related pressure injury present? No All skin intact. Last Duncan Score: 18 Instructions: Add LDA for any identified wounds Add Cummings image for any suspected PI or non [...] maintained per parameters. 1900 handoff given to Yun MAJOR documented in this encounter Miscellaneous Notes * [...] Admission order reviewed. 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: [facility] MEDICARE Payor: [facility] MEDICARE / Plan: [facility] / Product Type: *No Product type* / Secondary Insurance: N/A Prescription Coverage: Preferred Pharmacy: [facility] - [place], [place] - [address] [facility] [address] [facility] [address] [facility] - [place], [place] - [address] [facility] [address] [facility] [address] Advance Care Planning: Attempt Cardiopulmonary Resuscitation - Inpatient Received - Patient's Address: [address] [facility] [address] Social & Family Supports: Extended Emergency Contact Information Primary Emergency Contact: Kisha Flores Address: [address] [place] [address] [facility] Mobile Relation: Spouse Secondary Emergency Contact: Michelle Flores [facility] Mobile Relation: Child Transportation Anticipated: [...] via private when medically ready. Registered Nurse Survey Manager / Fuel Cell Binder will continue to follow patient???s progress and remain available if situation changes for coordination of care, psychosocial support and/or discharge planning. Office of Care Management Domi Prabhakar RN, BSN Case Management Work [phone] * Plan of Care - Nguyen Cortez [...] protocol Surveillance [continuous indirect monitoring]: Bed Alarm, Celsoo, Purposeful Rounding, NKE Bedside Report CPG GOAL [...] 11:27 AM EDT Thromboendartectmy Neck, Neck Incis ([id number]) Yes 09/15/2024 10:44 AM EDT Stenosis of [...] - 4.5 mg/dL 09/16/2024 6:53 AM EDT [facility] Blood VENOUS BLOOD SPECIMEN / Unknown IP Care Team Draw / Unknown 09/16/2024 6:08 AM EDT 09/16/2024 6:23 AM EDT Lorena Chandra MD CHEMISTRY ORDERABLES Performing Organization Address City/[facility]/ZIP Co de Phone Number [facility] [place] [address] * Magnesium (09/16/2024 6:08 AM EDT) Pathologist [facility] Magnesium 0.79 0.69 - 1.07 mMol/L 09/16/2024 6:53 AM EDT [facility] Blood VENOUS BLOOD SPECIMEN / Unknown IP Care Team Draw / Unknown 09/16/2024 6:08 AM EDT 09/16/2024 6:23 AM EDT Lorena Chandra MD CHEMISTRY ORDERABLES [facility] [place] [address] * (ABNORMAL) Basic Metabolic Panel (09/16/2024 6:08 AM EDT) Pathologist [facility] Glucose 117 65 - 199 mg/dL 09/16/2024 7:53 AM EDT [facility] Comment:Glucose Concentratio n >=200 mg/dL plus symptoms is consistent with Diabetes Mellitus. Blood Urea Nitrogen 10 10 - 20 mg/dL 09/16/2024 7:53 AM EDT [facility] Creatinine 0.68(L) 0.80 - 1.50 mg/dL [facility] Sodium 137 135 - 145 mMol/L 09/16/2024 7:53 AM [facility] Potassium 4.2 3.5 - 5.0 mMol/L 09/16/2024 7:53 AM [facility] Chloride 106 98 - 107 mMol/L 09/16/2024 7:53 AM [facility] Carbon Dioxide 23 22 - 31 mMol/L 09/16/2024 7:53 AM [facility] Anion Gap 8 5 - 15 mMol/L 09/16/2024 7:53 AM [facility] Calcium 8.9 8.5 - 10.5 mg/dL 09/16/2024 7:53 AM [facility] Est Glomerular Filtration Rate - Male 95 mL/min/1. 73 m?? 09/16/2024 7:53 AM [facility] Comment: This patient's estimated GFR was [...] AM EDT Lorena Chandra MD CHEMISTRY ORDERABLES [facility] [place] [address] * (ABNORMAL) CBC (with Diff) (09/16/2024 6:08 AM EDT) White Blood Cell 11.53(H) 4.00 - 9.50 x10(3)/mc L 09/16/2024 6:31 AM [facility] Red Blood Cell 3.70(L) 4.58 - 5.54 x10(6)/mc L 09/16/2024 6:31 AM [facility] Hemoglobin 11.9(L) 13.7 - 16.5 g/dL 09/16/2024 6:31 AM [facility] Hematocrit 35.8(L) 40.5 - 48.5 % 09/16/2024 6:31 AM [facility] Mean Cell Volume 96.8(H) 82.9 - 93.1 fL 09/16/2024 6:31 AM [facility] Mean Cell Hemoglobin 32.2(H) 27.5 - 32.1 pg 09/16/2024 6:31 AM [facility] Mean Cell Hemoglobin Concentration 33.2 32.0 - 35.7 g/dL 09/16/2024 6:31 AM [facility] Platelet 173 145 - 357 x10(3)/mc L 09/16/2024 6:31 AM [facility] Mean Platelet Volume 10.6 7.6 - 12.9 fL 09/16/2024 6:31 AM [facility] RDW Standard Deviation 47.1(H) 36.0 - 45.0 fL 09/16/2024 6:31 AM [facility] RDW coefficient of variation 13.2 11.4 - 13.8 % 09/16/2024 6:31 AM [facility] NRBC% auto 0.0 % 09/16/2024 6:31 AM [facility] NRBC Absolute <0.01 <0.01 x10(3)/mc L 09/16/2024 6:31 AM [facility] Neutrophil % 72.1 % 09/16/2024 6:31 AM [facility] Neutrophil Absolute (ANC) - Automated 8.32(H) 1.70 - 6.10 x10(3)/mc L 09/16/2024 6:31 AM EDT [facility] Lymph % 8.8 % 09/16/2024 6:31 AM EDT [facility] Lymph Absolute 1.01 0.90 - 3.20 x10(3)/mc L 09/16/2024 6:31 AM EDT [facility] Monocyte % 8.2 % 09/16/2024 6:31 AM EDT [facility] Monocyte Absolute 0.94(H) 0.30 - 0.90 x10(3)/mc L 09/16/2024 6:31 AM EDT [facility] Eos % 10.4 % 09/16/2024 6:31 AM EDT [facility] Eos Absolute 1.20(H) 0.00 - 0.40 x10(3)/mc L 09/16/2024 6:31 AM EDT [facility] Basophil % 0.2 % 09/16/2024 6:31 AM EDT [facility] Baso Absolute <0.04 0.00 - 0.10 x10(3)/mc L 09/16/2024 6:31 AM EDT [facility] Immature Gran % 0.3 % 6:31 AM EDT [facility] Immature Gran Absolute 0.04 0.00 - 0.04 x10(3)/mc L 09/16/2024 6:31 AM EDT [facility] Blood VENOUS BLOOD SPECIMEN / Unknown IP Care Team Draw / Unknown 09/16/2024 6:08 AM EDT 09/16/2024 6:23 AM EDT Lorena Chandra MD HEMATOLOGY ORDERABLE S [facility] [place] [address] * Carotid Duplex, Unilateral (09/15/2024 11:37 AM EDT) VB Text Report Department: Vascular Surgery Lab Patient: [id number] (MIRNA FLORES) CPT: 74815 Referring Physician: LORENA CHANDRA ?? Indications: Intra-operative [...] AM EDT Lorena Chandra MD VASCULAR ORDERABLES Performing Organization Address City/State/[facility] Co de Phone Number [facility]AS[facility] * (ABNORMAL) Blood Gas, Arterial POC (09/15/2024 11:27 AM EDT) pH, Arterial 7.41 7.35 - 7.45 09/15/2024 11:42 AM EDT [facility] PCO2, Arterial 37 35 - 45 mmHg 09/15/2024 11:42 AM EDT [facility] PO2, Arterial 218(H) 85 - 104 mmHg 09/15/2024 11:42 AM EDT [facility] Bicarbonate, Arterial 23.0 20.0 - 26.0 mmol/L 09/15/2024 11:42 AM [facility] Base Excess, Arterial -1.6 -3.0 - 3.0 mmol/L 09/15/2024 11:42 AM [facility] Hemoglobin, Arterial 13.7 13.7 - 16.5 g/dL 09/15/2024 11:42 AM [facility] Oxyhemoglobin, Arterial 98.7(H) 94.0 - 97.0 % 09/15/2024 11:42 AM [facility] Carboxyhemoglobin , Arterial 0.3 % 09/15/2024 11:42 AM [facility] Comment: Nonsmokers: 0.5-1.5% COHB ?? Smokers: Variable ??but usually less than 10% ?? Toxic: 20-30% COHB ?? Lethal: Greater than 60% COHB Methemoglobin, Arterial 0.4 <=1.5 % 09/15/2024 11:42 AM [facility] Sodium, Arterial 137 135 - 145 mmol/L 09/15/2024 11:42 AM [facility] Potassium, Arterial 4.2 3.5 - 5.0 mmol/L 09/15/2024 11:42 AM [facility] Chloride, Arterial 106 98 - 107 mmol/L 09/15/2024 11:42 AM [facility] Lactate, Arterial 2.0 0.5 - 2.2 mmol/L 09/15/2024 11:42 AM [facility] IONIZED CALCIUM, ARTERIAL 1.21 1.15 - 1.33 mmol/L 09/15/2024 11:42 AM [facility] Glucose, Arterial 136 65 - 199 mg/dL 09/15/2024 11:42 AM [facility] Comment:Glucose Concentratio n >=200 mg/dL plus symptoms is consistent with Diabetes Mellitus. Blood ARTERIAL BLOOD / Unknown 09/15/2024 11:27 AM EDT 09/15/2024 11:42 AM EDT Lorena Chandra MD POINT OF CARE TEST O RDERAKEIRY Performing Organization Address [facility] Co de Phone Number [facility] [place] [address] * EKG 12 Lead (09/15/2024 10:21 AM EDT) Ventricular rate 80 BPM MUSE SYSTEM QRS Duration 74 ms MUSE SYSTEM Q-T Interval 390 ms MUSE SYSTEM QTC Calculated (Bezet) 449 ms MUSE SYSTEM Calculated R Hayward 26 degrees MUSE SYSTEM Calculated T Hayward 12 degrees MUSE SYSTEM INTERPRETATION Atrial fibrillation Nonspecific T wave abnormality When compared with ECG of 08-SEP-2024 09:53, (unconfirmed) no major changes seen Confirmed by Raymond Corrigan MD ([id number]) on 09/16/2024 10:46:46 AM MUSE SYSTEM 09/15/2024 10:2 1 AM EDT 09/16/2024 10:46 AM EDT Ana Pike APRN ECG ORDERABLES Performing Organization Address [facility] de Phone Number MUSE SYSTEM * POC, GLUCOSE (09/15/2024 9:41 AM EDT) [facility] Glucometer, POC 151 65 - 199 mg/dL 09/15/2024 9:43 AM EDT [facility] Comment:Supplemental ranges: <140 mg/dL before meals <180 mg/dL all other times of the day. Blood CAPILLARY BLOOD / Unknown 09/15/2024 9:41 AM EDT 09/15/2024 9:43 AM EDT Lorena Chandra MD POINT OF CARE TEST O RDERABLES Performing Organization Address [facility] Co de Phone Number [facility] [place] [address] * Scan Doc: Implantable Devices (09/15/2024 12:00 [...] of cerebral infarction documented in this encounter Admitting Diagnoses Diagnosis Carotid stenosis, right Occlusion and stenosis of carotid artery without mention of cerebral infarction documented in this encounter Administered Medications Inactive Administered Medications - up to 3 most recent administrations Medication Order MAR Action Action Date Dose Rate Site acetaminophen (Tylenol) tablet 975 mg 975 mg, Oral, ONCE, 1 dose, On Fri09/15/24 at 1000, Administer with a SIP of water only. Maximum dose of acetaminophen is 4,000 mg from all sources in 24 hours., Day of Surgery (Day of Procedure), Routine Given 09/15/2024 10:00 AM EDT 975 mg acetaminophen (Tylenol) tablet 975 mg 975 mg, [...] Tash 09/16/24 at 0900, Until Discontinued, Routine Given 09/16/2024 8:59 AM EDT 75 mg dilTIAZem CD (Cardizem CD) capsule 240 mg 240 mg, Oral, 2 TIMES DAILY, First dose on Fri09/15/24 at 2145, Until Discontinued, DO NOT CRUSH OR OPEN, Routine Given 09/16/2024 8:59 AM EDT 240 mg Given 09/15/2024 9:49 PM EDT 240 mg heparin (porcine) (5,000 units/1 mL) subcutaneous injection 5,000 Units 5,000 Units, Subcutaneous, EVERY 8 HOURS SCHEDULED, First dose on Fri09/15/24 at 2200, Until Discontinued, Routine Given 09/16/2024 5:19 AM EDT 5,000 Unit s Given 09/15/2024 9:49 PM EDT 5,000 Units [...] PRN, Starting on Fri09/15/24 at 1813, Until Fri09/16/24 at 1446, Nausea, Vomiting, If multiple antiemetics [...] Given 09/16/2024 8:58 AM EDT 0.4 mg timoloL (Timoptic) 0.5 % ophthalmic solution 1 [...] on Fri09/15/24 at 1830, Until Discontinued, Routine 184 (Given - Provider: Burt Cummings RN) clindamycin (Cleocin) 600 mg in dextrose 5% 50 mL infusion (COMPLETED) 600 mg, Intravenous, FIELD ARTILLERY OPERATIONS SPECIALIST TO O.R., 1 dose, On Fri09/15/24 at 1000, Administer over 20 Minutes, Do not exceed 30 mg/minute. Redose after 4 hours., Day of Surgery (Day of Procedure), Indication for (Active or Suspected): Prophylaxis 111 (Given - Provider: Davida Del Valle CRNA) clopidogreL (Plavix) tablet 75 mg 75 mg, Oral, DAILY, First dose on Fri09/16/24 at 0900, Until Discontinued, Routine 0859 (Given - Provid er: Avril Riggs RN) dilTIAZem CD (Cardizem CD) capsule 240 mg 240 mg, Oral, 2 TIMES DAILY, First dose on Fri09/15/24 at 2145, Until Discontinued, DO NOT CRUSH OR OPEN, Routine 2148 (Given - Provider: Nguyen Cortez RN) 0859 (Given - Provider: Avril Riggs RN) heparin [...] on Fri09/15/24 at 2215, Until Discontinued, Routine 214 (Given - Provider: Nguyen Cortez RN) 0900 [...] other ordered pain medications are indicated., Routine 1843 (Given - Provider: Burt Cummings RN) gelatin [...] Intravenous, EVERY 8 HOURS PRN, Starting on 09/15/24 at 1813, Until Tash 09/16/24 at 1446, Nausea, If multiple antiemetics are ordered, use ondansetron first, prochlorperazine second, and metoclopramide third. PO Preferred. If patient unable to take PO, may give IV if ordered. May repeat times one in 30 minutes if ineffective. Maximum daily dose = 24 mg/24 hours documented in this encounter Care Teams Securities Trader Relationship Specialty Start Date End Date Mirna Barrera DO [address] [place] [address] PCP - General Family Medicine 07/01/18 documented as of this encounter
--- OUTSIDE RECORDS SUMMARY | 2024-09-25 08:39 | XMS_ITS | Encounter Summary ---
[place] [address] Care Team Providers Care Payable Representative Name Role Phone Camacho Barrera DO Primary Care Provider [phone] Reason for Referral * Diagnostic Test (Routine) - New Request Specialty Diagnoses / Procedures Referred By Mike johnson Referred To Contact Diagnoses Carotid stenosis, asymptomatic, bilateral Procedures Carotid Duplex, Bilateral Ana Pike APRN [facility] [place] [address] [facility] [address] [address] Referral ID Status Reason Start Date Expiration Date Visits Requested Visits Authorized [id number] New Request Specialty Service Requested 07/30/2024 07/30/2025 1 1 Encounter Details Date Type Department Care Team (Late st Contact Info) Description 07/30/2024 4:00 PM EDT Office Visit [place] [address] Ana Pike APRN [facility] [place] [address] Carotid stenosis, asymptomatic, bilateral Social [...] Sign Reading Time Taken Comments Blood Pressure 115/63 07/30/2024 2:51 PM EDT Pulse 75 07/30/2024 2:51 PM EDT Temperature - - Respiratory Rate - - Oxygen Saturation - - Inhaled Oxygen Concentration - - Weight 98 kg (216 lb) 07/30/2024 2:51 PM EDT Height 185.4 cm (6' 1) 07/30/2024 2:51 PM EDT Body Mass Index 28.5 07/30/2024 2:51 PM EDT documented in this encounter Progress Notes * Ana Pike, SENIOR PRODUCT ENGINEER - 07/30/2024 4:00 PM EDT Vascular Follow-Up Reason for Visit: Camacho Flores is a 78 y.o. male presenting for Carotid Stenosis. HPI: 78 y.o. male with PMH: HTN, HLD, CVA, Afib, carotid stenosis, brain abscess. Mr. Flores presents to clinic with his for routine carotid artery surveillance. He denies signssymptoms of stroke: unilateral extremity weakness, facial droop, acute change in vision or speech. He denies claudication, rest pain, tissue loss, CP, SOB. He no longer takes Xarelto due to recurrent epistaxis, both his PCP and EP application internship are aware. He takes Plavix and statin. He does not takeaspirin as he believes it also contributes to his bleeding. He is not smoking. Prior vascular history: 07/16/2023: Left CEA (Prateek) Atherosclerotic Risk Factors: (N) DM (Y) HTN (Y) CAD carotid (Y) Hyperlipidemia (N) Tobacco (Y) CVA Problem List: Patient Active Problem List [...] Prior to Visit Medication Sig Dispense Refill furosemide (Lasix) 20 mg tablet Take 20 mg by mouth. prn fluorouraciL (EFUDEX) 5 % Cream Apply topically 2 times daily. clopidogreL (Plavix) 75 mg tablet Take 1 tablet by mouth daily. 30 tablet 0 lisinopriL (Zestril) 2.5 mg tablet Take 2.5 [...] into the left eye 2 times daily. acetaminophen (Tylenol) 500 mg tablet Take 1 tablet by mouth every 4 hours as needed for Pain (For Mild Pain (1-3) or Fever.). (Patient not taking: Reported on 07/30/2024) 30 tablet 1 Half Off DepotTouch Verio test strips Strip USE TO CHECK BLOOD GLUCOSE DAILY DIRECTED No current facility-administered medications on file prior [...] those noted in HPI. Physical Exam: BP 115/63 (BP Location (NBP): Right arm, Patient Position: Sitting) Pulse 75 Ht 185.4 cm (6' 1) Wt 98 kg (216 lb) BMI 28.50 kg/m?? Physical Exam GEN: Alert, appeared stated age in no acute distress SKIN: Warm, pink and dry. Extremities: Bilateral UE and LE warm and pink. No edema. No wounds. HEENT: Normocephalic and atraumatic CV: Regular rate and rhythm. S1 and S2 present on auscultation PULM: Lung sounds clear to auscultation bilaterally NEURO: No gross sensory or motor deficits. Vascular: No carotid bruit, palpable radial pulses Studies: Recent Results (from the past 72 hour(s)) Carotid Duplex, Bilateral Result Value Ref Range VB Text Report Department: Vascular Surgery Lab Patient: [id number] (CAMACHO FLORES) CPT: 90050 Referring Physician: CLAUDIA QUINN Indications: f/u LT CEA and RT ICA stenosis, ? patency Findings: ICA Proximal, Right PSV (cm/s): 439 EDV (cm/s): 119 ICA/CCA: 9.1 Plaque Structure: Mixed Echogenic Plaque Surface: Irregular %Stenosis: 70-99% ICA Distal, Right PSV (cm/s): 61 EDV (cm/s): 19 ICA/CCA: 1.4 CCA Distal, Right PSV (cm/s): 44 EDV (cm/s): 11 %Stenosis: <50% CCA Proximal, Right PSV (cm/s): 46 EDV (cm/s): 9 External Carotid Artery, Right PSV (cm/s): 108 EDV (cm/s): 10 %Stenosis: <50% Vertebral, Right PSV (cm/s): 43 EDV (cm/s): 11 Direction of Flow: Antegrade ICA Proximal, Left PSV (cm/s): 81 EDV (cm/s): 24 ICA/CCA: 1.4 Plaque Structure: Echogenic Plaque Surface: Smooth %Stenosis: < 15% ICA Distal, Left PSV (cm/s): 55 EDV (cm/s): 25 ICA/CCA: 1.0 CCA Distal, Left PSV (cm/s): 56 EDV (cm/s): 21 %Stenosis: Minimal CCA Proximal, Left PSV (cm/s): 65 EDV (cm/s): 19 External Carotid Artery, Left PSV (cm/s): 309 EDV (cm/s): 33 %Stenosis: >50% Vertebral, Left PSV (cm/s): 63 EDV (cm/s): 29 Direction of Flow: Antegrade Interpretation: RIGHT: There [...] stenosis. There is smooth plaque in the proxima l internal carotid artery causing <15% stenosis when compared to the more distal internal carotid artery. The bifurcation level is in the mid neck. No identifiable change when compared to the previous exam. Vertebral Artery Data: Patent vertebral arteries with normal antegrade Doppler waveforms and velocities bilaterally. Unable to reproduce resistive antegrade Doppler waveforms noted in the right vertebral artery. Previous Carotid Studies: Date RIGHT ICA Stenosis PSV Ratio LEFT ICA Stenosis PSV Ratio 80-99% 571 8.20 16-49% 177 2.40 n/a n/a n/a <15% 73 2.90 n/a n/a n/a <15% 166 3.00 70-79% 346 7.20 <15% 95 1.70 70-99% 355 8.50 <15% 41 1.60 Current Exam 70-99% 401 9.10 <15% 81 1.40 VB Text Report End of Report Assessment and Plan: Camacho Flores 78 y.o. male with PMH: Mr. Flores with stable carotid artery stenosis on duplex today: R ICA 70-99% stenosis and L ICA <15%. Patient remains asymptomatic. Studies are unchanged from prior visit. Mr. Flores and I had a good discussion today with his about surgical intervention versus continued surveillance, and the increased risk of stroke with this level of stenosis. At this time he opts for continued surveillance, and we will continue the discussion about intervention at his next visit in 6 months. We reviewedthe warning signs/symptoms of stroke/TIA. Plan: - Recommend patient continue daily statin and Plavix. - Recommend tight control of co-morbidities and continued abstinence from smoking. - Follow-up in the clinic in 6 months with repeat carotid duplex. - Instructed to call the clinic with any concerns prior to next appointment. Instructed to call 911for any s/sx of TIA/CVA including unilateral extremity weakness, facial droop, acute change in vision or speech. Future Appointments Date Time Provider Department Center 09/08/2024 9:40 AM Gonzales Torres MD Ana Pike APRN Department of Vascular Surgery documented in this encounter Plan of Treatment Not on file documented as of this encounter Visit Diagnoses Diagnosis Carotid stenosis, asymptomatic, bilateral documented in this encounter Care Teams Payable Representative Relationship Specialty Start Date End Date Camacho Barrera DO [address] [place] [address] PCP - General Family Medicine 07/01/18 documented as of this encounter
--- OUTSIDE RECORDS SUMMARY | 2024-09-25 08:39 | XMS_ITS | Encounter Summary ---
[place] [address] Care Team Providers Care Cold Press Loader Name Role Phone Camacho Barrera DO Primary Care Provider [phone] Reason for Visit * Reason Comments Medication Refill Encounter Details Date Type Department Care Team (Late st Contact Info) Description 08/24/2024 Refill [place] [address] Ana Pike APRN [facility] [place] [address] Carotid stenosis, asymptomatic, bilateral; PAD (peripheral artery [...] infarction documented in this encounter Care Teams Cold Press Loader Relationship Specialty Start Date End Date Camacho Barrera DO [address] [place] [address] PCP - General Family Medicine 07/01/18 documented as of this encounter
--- OUTSIDE RECORDS SUMMARY | 2024-09-25 08:39 | XMS_ITS | Encounter Summary ---
[place] [address] Care Team Providers Care Agricultural Equipment Salesperson Name Role Phone Camacho Barrera DO Primary Care Provider [phone] Encounter Details Date Type Department Care Team (Late st Contact Info) Description 09/06/2024 3:00 PM EDT Office Visit [place] [address] Ramiro Chandra MD [facility] [place] [address] Stenosis of right carotid artery Social History Tobacco Use Types Packs/Day Years [...] Sign Reading Time Taken Comments Blood Pressure 119/71 09/06/2024 2:53 PM EDT Pulse 76 09/06/2024 2:53 PM EDT Temperature - - Respiratory Rate - - Oxygen Saturation - - Inhaled Oxygen Concentration - - Weight 98 kg (216 lb) 09/06/2024 2:53 PM EDT Height 185.4 cm (6' 1) 09/06/2024 2:53 PM EDT Body Mass Index 28.5 09/06/2024 2:53 PM EDT documented in this encounter Progress Notes * Ramiro Chandra MD - 09/06/2024 3:00 PM EDT [facility] staff: [facility] Hx: Prior vascular history: 07/16/2023: Left CEA ([place]) Interval Hx: Patient returns. He has had no further neurologic symptoms. On exam Pat, carotid upstrokes are equal bilaterally. I am reminded that he takes plavix for his A-fib. He sees Dr. Torres for this. He underwent carotid duplex and CT scan of the carotids and algaaciq of Dick which I reviewed personally. He has a carotid stenosis that is critical in nature on the right side. Assessment: Neck is a pleasant gentleman who was treated with surgical therapy for a left carotid stenosis who now presents with progression on the right side. I held a discussion with the patient and his . They wish to proceed with right carotid revascularization. He is taking Plavix and statin. He will continue these. Thank you for sending him in consultation. documented in this encounter Plan of Treatment Not on file documented as of this encounter Visit Diagnoses Diagnosis Stenosis of right carotid artery Occlusion and stenosis of carotid artery without mention of cerebral infarction documented in this encounter Care Teams Agricultural Equipment Salesperson Relationship Specialty Start Date End Date Camacho Barrera DO [address] [place] [address] PCP - General Family Medicine 07/01/18 documented as of this encounter
--- OUTSIDE RECORDS SUMMARY | 2024-09-25 08:39 | XMS_ITS | Encounter Summary ---
[place] [address] Care Team Providers Care Chemical Instrumentation Officer Name Role Phone Camacho Barrera DO Primary Care Provider [phone] Encounter Details Date Type Department Care Team (Late st Contact Info) Description 01/22/2024 Telephone Cardiology at [address] [place] [address] Lilian Reaves, RN Social History [...] EST Scheduled with Dr. Torres 02/10 in [facility]. * Telephone Encounter - Lilian Reaves, RN - 01/22/2024 2:33 PM EST ----- Message from Geraldine Joe sent at 01/20/2024 3:46 PM EST ----- ED, discharge and records scanned documented in this encounter Plan of Treatment Not on file documented as of this encounter Visit Diagnoses Not on filedocumented in this encounter Care Teams Chemical Instrumentation Officer Relationship Specialty Start Date End Date aCmacho Barrera DO [address] [place] [address] PCP - General Family Medicine 07/01/18 documented as of this encounter
--- OUTSIDE RECORDS SUMMARY | 2024-09-25 08:39 | XMS_ITS | Encounter Summary ---
[place] [address] Care Team Providers Care Hand Shoe Cutter Name Role Phone Camacho Barrera DO Primary Care Provider [phone] Encounter Details Date Type Department Care Team (Late st Contact Info) Description 08/10/2024 Orders [place] [address] Mikayla De La Rosa RN Carotid stenosis, asymptomatic, bilateral Social History Tobacco Use Types Packs/Day Years Used Date Smoking Tobacco: Never Smokeless Tobacco: Never Alcohol Use Standard Drinks/Week Comments Yes 14 (1 standard drink = 0.6 oz pu re alcohol) 2-3 drinks/night [facility] Inpatient Questions Answer Date Recorded Does [...] documented as of this encounter Results * Creatinine (09/06/2024 12:11 PM EDT) Creatinine 0.94 0.80 - 1.50 mg/dL 09/06/2024 1:21 PM EDT [facility] Est Glomerular Filtration Rate - Male 83 mL/min/1. 73 m?? 09/06/2024 1:21 PM EDT [facility] Comment: This patient's estimated GFR [...] EDT 09/06/2024 12:11 PM EDT Ana Pike MASH PREPARATORY OPERATOR CHEMISTRY ORDERABLES [facility] [place] [address] documented in this encounter Visit Diagnoses Diagnosis Carotid stenosis, asymptomatic, bilateral documented in this encounter Care Teams Hand Shoe Cutter Relationship Specialty Start Date End Date Camacho Barrera DO [address] [place] [address] PCP - General Family Medicine 07/01/18 documented as of this encounter
--- OUTSIDE RECORDS SUMMARY | 2024-09-25 08:39 | XMS_ITS | Encounter Summary ---
Author Organization [facility] [place] [address] Care Team Providers Care Dice Manager Name Role Phone Camacho Barrera DO Primary Care Provider [phone] Encounter Details Date Type Department Care Team (Latest Contact Info) Description 09/15/2024 Travel Social History Tobacco Use Types Packs/Day [...] on filedocumented in this encounter Care Teams Dice Manager Relationship Specialty Start Date End Date Camacho Barrera DO [address] [place], [place] [id number] PCP - General Family Medicine 07/01/18 documented as of this encounter
--- OUTSIDE RECORDS SUMMARY | 2024-09-25 08:39 | XMS_ITS | Encounter Summary ---
[place] [address] Care Team Providers Care Seo Marketing Specialist Name Role Phone Camacho Barrera DO Primary Care Provider [phone] Reason for Visit * Auth/Cert (Routine) Specialty Diagnoses / Procedures Referred By Contac t Referred To Contact Diagnoses Stenosis of right carotid artery Pre-op testing Carotid stenosis Procedures PRO THROMBOENDARTECTMY NECK, NECK INCIS @[email or web address], CAROTID, VERTEBRAL,SUBCLAVIAN W\WO PATCH GRAFT (WRVU 21.16) Ramiro Chandra MD [facility] DR [place]ASC[place] [address] [facility] Referral ID Status Reason Start Date Expiration Date Visits Re quested Visits Authorized [id number] 1 1 Encounter Details Date Type Department Care Team (Latest Contact Info) Description 09/15/2024 9:30 AM EDT Laboratory [place] [id number] Pre-op testing; Stenosis of right carotid artery Social History Tobacco Use Types Packs/Day Years Used Date Smoking Tobacco: Never Smokeless Tobacco: Never Alcohol Use Standard Drinks/Week Comments Yes 14 (1 standard drink = 0.6 oz pu re alcohol) 2-3 drinks/night [facility] Inpatient Questions Answer Date Recorded Does Anyone [...] Procedure Name Priority Date/Time Associated Diagnosis Comments HEMOGRAM STAT 09/15/2024 9:08 AM EDT Pre-op testing Stenosis of right carotid artery PREALBUMIN STAT 09/15/2024 9:08 AM EDT Pre-op testing Stenosis of right carotid artery BASIC METABOLIC PANEL Routine 09/15/2024 9:08 AM EDT Pre-op testing Stenosis of right carotid artery documented in this encounter Results * Prealbumin (09/15/2024 9:08 AM EDT) Prealbumin 26 20 - 40 mg/dL 09/15/2024 10:23 AM EDT [facility] Comment:Prealbumin levels ar e generally lower in the pediatric population; adult concentrations are usually attained near puberty. Blood VENOUS BLOOD SPECIMEN / Unknown Venipuncture / Unknown 09/15/2024 9:08 AM EDT 09/15/2024 9:08 AM EDT Berenice Fagan APRN CHEMISTRY ORDERABLES [facility] [place] [address] * (ABNORMAL) Basic Metabolic Panel Non-fasting (09/15/2024 9:08 AM EDT) Glucose 147(H) 65 - 99 mg/dL 09/15/2024 10:30 AM EDT [facility] Comment: Fasting Glucose Interpretive Criteria: Normal: 65-99 mg/dL ?? Prediabetes: 100-125 mg/dL ?? Consistent with Diabetes Mellitus: > or = 126 mg/dL ?? Classification and Diagnosis of Diabetes: Standards of Care in Diabetes - 2022. Diabetes Care 202; 46:S19. Fasting is defined as no caloric intake for at least 8 hours. Blood Urea Nitrogen 15 10 - 20 mg/dL 09/15/2024 10:30 AM [facility] Creatinine 0.78(L) 0.80 - 1.50 mg/dL 09/15/2024 10:30 AM [facility] Sodium 137 135 - 145 mMol/L 09/15/2024 10:30 AM [facility] Potassium 4.2 3.5 - 5.0 mMol/L 09/15/2024 10:30 AM [facility] Chloride 104 98 - 107 mMol/L 09/15/2024 10:30 AM [facility] Carbon Dioxide 19(L) 22 - 31 mMol/L 09/15/2024 10:30 AM [facility] Anion Gap 14 5 - 15 mMol/L 09/15/2024 10:30 AM [facility] Calcium 9.9 8.5 - 10.5 mg/dL 09/15/2024 10:30 AM [facility] Est Glomerular Filtration Rate - Male 91 mL/min/1. 73 m?? 09/15/2024 10:30 AM [facility] Comment: This patient's estimated [...] eGFR. Link: eGFR Calculator [employer] Fasting Status Yes 09/15/2024 10:30 AM [facility] Blood VENOUS BLOOD SPECIMEN / Unknown Venipuncture / Unknown 09/15/2024 9:08 AM EDT 09/15/2024 9:08 AM EDT Berenice Fagan APRN CHEMISTRY ORDERABLES [facility] [address] * (ABNORMAL) Hemogram (09/15/2024 9:08 AM EDT) White Blood Cell 11.69(H) 4.00 - 9.50 x10(3)/mc L 09/15/2024 9:24 AM EDT [facility] Red Blood Cell 4.59 4.58 - 5.54 x10(6)/mc L 09/15/2024 9:24 AM EDT [facility] Hemoglobin 15.0 13.7 - 16.5 g/dL 09/15/2024 9:24 AM EDT [facility] Hematocrit 47.0 40.5 - 48.5 % 09/15/2024 9:24 AM EDT [facility] Mean Cell Volume 102.4(H) 82.9 - 93.1 fL 09/15/2024 9:24 AM EDT [facility] Mean Cell Hemoglobin 32.7(H) 27.5 - 32.1 pg 09/15/2024 9:24 AM EDT [facility] Mean Cell Hemoglobin Concentration 31.9(L) 32.0 - 35.7 g/dL 09/15/2024 9:24 AM EDT [facility] Platelet 202 145 - 357 x10(3)/mc L 09/15/2024 9:24 AM EDT [facility] Mean Platelet Volume 10.5 7.6 - 12.9 fL 09/15/2024 9:24 AM EDT [facility] RDW Standard Deviation 50.1(H) 36.0 - 45.0 fL 09/15/2024 9:24 AM EDT [facility] RDW coefficient of variation 13.2 11.4 - 13.8 % 09/15/2024 9:24 AM EDT [facility] NRBC% auto 0.0 % 09/15/2024 9:24 AM EDT [facility] NRBC Absolute <0.01 <0.01 x10(3)/mc L 09/15/2024 9:24 AM EDT [facility] Blood VENOUS BLOOD SPECIMEN / Unknown Venipuncture / Unknown 09/15/2024 9:08 AM EDT 09/15/2024 9:08 AM EDT Berenice Fagan APRN HEMATOLOGY ORDERABLE S [facility] [place] [address] documented in this encounter Visit Diagnoses Diagnosis Pre-op testing Preoperative examination, unspecified Stenosis of right carotid artery Occlusion and stenosis of carotid artery without mention of cerebral infarction documented in this encounter Care Teams Seo Marketing Specialist Relationship Specialty Start Date End Date Camacho Barrera DO [address] [place] [address] PCP - General Family Medicine 07/01/18 documented as of this encounter
--- OUTSIDE RECORDS SUMMARY | 2024-09-25 08:39 | XMS_ITS | Encounter Summary ---
[place] [address] Care Team Providers Care Door Installer Name Role Phone Camacho Barrera DO Primary Care Provider [phone] Reason for Referral * Diagnostic Test (Routine) - Closed Specialty Diagnoses / Procedures Referred By Mike johnson Referred To Contact Radiology Diagnoses Carotid stenosis, asymptomatic, bilateral Procedures CT Angiogram Carotids & [place] of [place] Ana Pike APRN [facility] [place] [address] [facility] [place] [address] Referral ID Status Reason Start Date Expiration Date V isits Requested Visits Authorized [id number] Closed Specialty Service Requested 08/09/2024 02/06/2026 1 1 Encounter Details Date Type Department Care Team (Late st Contact Info) Description 08/09/2024 Orders Only [place] [address] Ana Pike APRN [facility] [place] [address] Carotid stenosis, asymptomatic, bilateral Social [...] documented as of this encounter Results * CT Angiogram Carotids & [place] of [place] (09/06/2024 2:00 PM EDT) [facility] WORKSTATION ID [id number] RAD Anatomical Region Laterality Modality Neck, Head [...] AM EDT EXAMINATION: CT ANGIOGRAM CAROTIDS AND [place] OF DICK CLINICAL HISTORY: h/o L CEA and severe R ICA stenosis I65.23, Occlusion and stenosis of bilateral carotid arteries TECHNIQUE: CTA of the head and neck performed after the intravenous administration of contrast. Administered 65.0 ml of OMNIPAQUE 350.00 mg/ml. MIP and 3-D volumetric reconstructions were created. COMPARISON: CTA carotids 05/21/2023, CTA [place] of [place] 05/20/2023, MR angiogram neck without [...] arteries: Hypoplastic P1 segment of the left CLINIC COORDINATOR with near left posterior communicating artery. Otherwise [...] - 09/07/2024 EXAMINATION: CT ANGIOGRAM CAROTIDS AND [place] OF DICK CLINICAL HISTORY: h/o L CEA and severe R ICA stenosis I65.23, Occlusion and stenosis of bilateral carotid arteries TECHNIQUE: CTA of the head and neck performed after the intravenous administrationof contrast. Administered 65.0 ml of OMNIPAQUE 350.00 mg/ml. MIP and 3-Dvolumetric reconstructions were created. COMPARISON: CTA carotids 05/21/2023, CTA [place] 05/20/2023, MR angiogramneck without contrast [...] arteries: Hypoplastic P1 segment of the left CLINIC COORDINATOR with nearfetal left posterior communicating artery. Otherwise [...] development specialist that requested your imaging first. Ana Pike APRN IMG CT ORDERABLES documented in this encounter Visit Diagnoses Diagnosis Carotid stenosis, asymptomatic, bilateral Carotid stenosis, asymptomatic, bilateral documented in this encounter Care Teams Door Installer Relationship Specialty Start Date End Date Camacho Barrera DO [address] [place] [address] PCP - General Family Medicine 07/01/18 documented as of this encounter
--- OUTSIDE RECORDS SUMMARY | 2024-09-25 08:39 | XMS_ITS | Encounter Summary ---
[place] [address] Care Team Providers Care Crossbar Frame Wirer Name Role Phone Camacho Barrera DO Primary Care Provider [phone] Encounter Details Date Type Department Care Team (Late st Contact Info) Description 06/11/2024 Telephone [place] [phone] Maribeth Cullen Social History Tobacco Use Types Packs/Day Years Used Date Smoking Tobacco: Never Smokeless Tobacco: Never Alcohol Use Standard Drinks/Week Comments Yes 14 (1 standard drink = 0.6 oz pu re alcohol) 2-3 drinks/night [facility] Inpatient Questions Answer Date Recorded Does Anyone [...] DUP - carotid stenosis, 6M F/U [facility] CLOSED RECALL documented in this encounter Plan of Treatment Not on file documented as of this encounter Visit Diagnoses Not on filedocumented in this encounter Care Teams Crossbar Frame Wirer Relationship Specialty Start Date End Date Camacho Barrera DO [address] [place] [address] PCP - General Family Medicine 07/01/18 documented as of this encounter
--- OUTSIDE RECORDS SUMMARY | 2024-09-25 08:39 | XMS_ITS | Encounter Summary ---
[place] [address] Care Team Providers Care Mortgage Lender Name Role Phone Camacho Barrera DO Primary Care Provider [phone] Encounter Details Date Type Department Care Team (Latest Contact Info) Description 09/09/2023 8:15 AM EDT Laboratory Appointment Lab [address] [place] [address] Hematuria, unspecified type Social History [...] multiple bacterial species suggesting mucosal contamination. (A) [facility] Clean Catch Urine 09/09/2023 10:16 AM EDT 09/09/2023 11:49 AM EDT Narrative Resulting Agency Comment Spec In Lab Akila Herman MD MICROBIOLOGY - GENE RAL ORDERABLES Performing Organization Address City/[facility]/ZIP Co de Phone Number [facility] [place] [address] * (ABNORMAL) Urinalysis Microscopic Exam (09/09/2023 10:16 AM EDT) RBC, Urine 1 0 - 3 /HPF [facility] WBC, Urine 14(H) 0 - 3 /HPF [facility] Bacteria, Urine Few(A) None /HPF [facility] Squamous Epithelial Cells Raw Data, Urine 2 <=4 /HPF [facility] Hyaline Casts, Urine 12(H) 0 - 2 /LPF [facility] Calcium Oxalate Crystal, Urine Moderate(A ) None /HPF [facility] Clean Catch Urine 09/09/2023 10:16 AM EDT 09/09/2023 10:19 AM EDT Narrative Resulting Agency Comment Spec In Lab Akila Herman MD URINE ORDERABLES Performing Organization Address City/[facility]/ZIP Co de Phone Number [facility] [place] [address] * (ABNORMAL) Urinalysis with reflex Culture (09/09/2023 10:16 AM EDT) Glucose, Urine Dipstick Negative Negative mg/dL [facility] Protein, Urine Dipstick Trace(A) Negative mg/dL [facility] Bilirubin, Urine Dipstick Negative Negative mg/dL [facility] Comment: Clinical correlation required for positive Urine Bilirubin results as false positive may occur with some drugs and drug related products. If a false positive is suspected a serum total bilirubin should be considered if clinically indicated. Urobilinogen, Urine Dipstick Normal Normal mg/dL [facility] pH, Urn (dipstick) 5.0 5.0 - 8.0 [facility] Blood, Urine Dipstick Trace(A) Negative mg/dL [facility] Ketone, Urine Dipstick Trace(A) Negative mg/dL [facility] Nitrite, Urine Dipstick Negative Negative [facility] Leukocytes, Urine Dipstick Small(A) Negative mcL [facility] Appearance, Urine Dipstick Cloudy(A) Clear [facility] Specific [place] Urine Automated 1.027 1.005 - 1.030 [facility] Color, Urine Dipstick Yellow Yellow [facility] Reflex to Culture Yes [facility] Clean Catch Urine 09/09/2023 10:16 AM EDT 09/09/2023 10:19 AM EDT Narrative Resulting Agency Comment Spec In Lab Ramiro Chandra MD URINE ORDERABLES Performing Organization Address City/State/[facility] Co de Phone Number [facility] [place] [address] * (ABNORMAL) Basic Metabolic Panel (non-fasting) (09/09/2023 8:28 AM EDT) Glucose 116 65 - 199 mg/dL [facility] Comment:Diabetes: >=200 mg/d L plus symptoms Blood Urea Nitrogen 19 10 - 20 mg/dL [facility] Creatinine 0.77(L) 0.80 - 1.50 mg/dL [facility] Sodium 142 135 - 145 mmol/L [facility] Potassium 3.9 3.5 - 5.0 mmol/L [facility] Comment: Please note: ??Patients with WBC >100,000 may have falsely elevated Potassium levels. ??For accurate Potassium quantification in these patients send serum separator tube (gold top) for subsequent determinations. ??Contact the Clinical Chemistry Laboratory if there are any questions. Chloride 106 98 - 107 mmol/L [facility] Carbon Dioxide 25 22 - 31 mmol/L [facility] Anion Gap 11 5 - 15 mmol/L [facility] Calcium 9.7 8.5 - 10.5 mg/dL [facility] Est Glomerular Filtration Rate 92 >=60 mL/min/1. 73 m?? [facility] Comment: This patient's estimated GFR [...] Daniel MD CHEMISTRY ORDERABLES Performing Organization Address City/State/[facility] Co de Phone Number [facility] [place] [address] documented in this encounter Visit Diagnoses Diagnosis Hematuria, unspecified type documented in this encounter Care Teams Mortgage Lender Relationship Specialty Start Date End Date Camacho Barrera DO [address] [place] [address] PCP - General Family Medicine 07/01/18 documented as of this encounter
--- OUTSIDE RECORDS SUMMARY | 2024-09-25 08:39 | XMS_ITS | Encounter Summary ---
Author Organization [facility] [place] [address] Care Team Providers Care Upholstery Trimmer Name Role Phone Camacho Barrera DO Primary Care Provider [phone] Encounter Details Date Type Department Care Team [...] on filedocumented in this encounter Care Teams Upholstery Trimmer Relationship Specialty Start Date End Date Camacho Barrera DO [address] [place], [place] [id number] PCP - General Family Medicine 07/01/18 documented as of this encounter
--- OUTSIDE RECORDS SUMMARY | 2024-09-25 08:39 | XMS_ITS | Encounter Summary ---
[place] [address] Care Team Providers Care Aerosol Line Operator Name Role Phone Camacho Barrera DO Primary Care Provider [phone] Encounter Details Date Type Department Care Team (Latest Contact Info) Description 09/06/2024 12:30 PM EDT Laboratory Appointment Lab [address] [place] [address] Carotid stenosis, asymptomatic, bilateral Social History Tobacco [...] Procedure Name Priority Date/Time Associated Diagnosis Comments CREATININE STAT 09/06/2024 12:11 PM EDT Carotid stenosis, asymptomatic, bilateral documented in this encounter Results * Creatinine (09/06/2024 12:11 PM EDT) Creatinine 0.94 0.80 - 1.50 mg/dL 09/06/2024 1:21 PM EDT [facility] Est Glomerular Filtration Rate - Male 83 mL/min/1. 73 m?? 09/06/2024 1:21 PM EDT [facility] Comment: This patient's [...] PM EDT Ana Pike APRN CHEMISTRY ORDERABLES [facility] [place] [address] documented in this encounter Visit Diagnoses Diagnosis Carotid stenosis, asymptomatic, bilateral documented in this encounter Care Teams Aerosol Line Operator Relationship Specialty Start Date End Date Camacho Barrera DO [address] [place] [address] PCP - General Family Medicine 07/01/18 documented as of this encounter
--- OUTSIDE RECORDS SUMMARY | 2024-09-25 08:39 | XMS_ITS | Encounter Summary ---
Author Organization [facility] [place] [address] Care Team Providers Care Abalone Diver Name Role Phone Camacho Barrera DO Primary Care Provider [phone] Encounter Details Date Type Department Care Team (Latest Contact Info) Description 09/05/2024 Travel Social History Tobacco Use Types Packs/Day [...] on filedocumented in this encounter Care Teams Abalone Diver Relationship Specialty Start Date End Date Camacho Barrera DO [address] [place], [place] [id number] PCP - General Family Medicine 07/01/18 documented as of this encounter
--- OUTSIDE RECORDS SUMMARY | 2024-09-25 08:39 | XMS_ITS | Encounter Summary ---
[place] [address] Care Team Providers Care Patient Liaison Name Role Phone Camacho Barrera DO Primary Care Provider [phone] Encounter Details Date Type Department Care Team (Late st Contact Info) Description 09/19/2023 10:00 AM EDT Tech [place] [phone] Zander Rivas Carotid stenosis, asymptomatic, bilateral Social [...] Text Report Department: Vascular Surgery Lab Patient: [id number] (CAMACHO FLORES) CPT: [id number] Referring Physician: BRIAN FAGAN ?? Phone: Indications: [...] AM EDT Brian Fagan APRN VASCULAR ORDERABLES Performing Organization Address City/State/[facility] Co de Phone Number [facility] documented in this encounter Visit Diagnoses Diagnosis Carotid stenosis, asymptomatic, bilateral documented in this encounter Care Teams Patient Liaison Relationship Specialty Start Date End Date Camacho Barrera DO [address] [place] [address] PCP - General Family Medicine 07/01/18 documented as of this encounter
--- OUTSIDE RECORDS SUMMARY | 2024-09-25 08:39 | XMS_ITS | Encounter Summary ---
[place] [address] Care Team Providers Care Canvas Cutter Machine Name Role Phone Camacho Barrera DO Primary Care Provider [phone] Encounter Details Date Type Department Care Team (Late st Contact Info) Description 11/27/2023 Telephone [place] [address] Maribeth Cullen Social History Tobacco Use Types Packs/Day Years Used Date Smoking Tobacco: Never Smokeless Tobacco: Never Alcohol Use Standard Drinks/Week Comments Yes 14 (1 standard drink = 0.6 oz pu re alcohol) 2-3 drinks/night [facility] Inpatient Questions Answer Date Recorded [...] Carotid stenosis; Post CEA, 3M F/U Prateek Stahl Sent letter x2 Closed recall Gm 11/27/2023 documented in this encounter Plan of Treatment Not on file documented as of this encounter Visit Diagnoses Not on filedocumented in this encounter Care Teams Canvas Cutter Machine Relationship Specialty Start Date End Date Camacho Barrera DO [address] [place] [address] PCP - General Family Medicine 07/01/18 documented as of this encounter
--- OUTSIDE RECORDS SUMMARY | 2024-09-25 08:39 | XMS_ITS | Encounter Summary ---
[place] [address] Care Team Providers Care Can Line Examiner Name Role Phone Camacho Barrera DO Primary Care Provider Encounter Details Date Type Department Care Team (Late st Contact Info) Description 09/13/2024 Orders [place] [address] Kandace Hess RN Pre-op testing; Stenosis of right carotid artery Social History Tobacco Use Types Packs/Day Years Used Date Smoking Tobacco: Never Smokeless Tobacco: Never Alcohol Use Standard Drinks/Week Comments Yes 14 (1 standard drink = 0.6 oz pu re alcohol) 2-3 drinks/night [facility] Inpatient Questions Answer Date [...] as of this encounter Results * Prealbumin (09/15/2024 9:08 AM EDT) Prealbumin 26 20 - 40 mg/dL 09/15/2024 10:23 AM EDT [facility] Comment:Prealbumin levels ar e generally lower in the pediatric population; adult concentrations are usually attained near puberty. Blood VENOUS BLOOD SPECIMEN / Unknown Venipuncture / Unknown 09/15/2024 9:08 AM EDT 09/15/2024 9:08 AM EDT Berenice Fagan APRN CHEMISTRY ORDERABLES [facility] [place] [address] * (ABNORMAL) Basic Metabolic Panel Non-fasting (09/15/2024 9:08 AM EDT) Pathologist [facility] Glucose 147(H) 65 - 99 mg/dL 09/15/2024 10:30 AM EDT [facility] Comment: Fasting Glucose Interpretive Criteria: [...] 10 - 20 mg/dL 09/15/2024 10:30 AM EDT [facility] Creatinine 0.78(L) 0.80 - 1.50 mg/dL 09/15/2024 10:30 AM EDT [facility] Sodium 137 135 - 145 mMol/L [facility] Potassium 4.2 3.5 - 5.0 mMol/L 09/15/2024 10:30 AM EDT [facility] Chloride 104 98 - 107 mMol/L [facility]/15[facility]2024 [facility] Carbon Dioxide 19(L) 22 - 31 mMol/L 09/15/2024 10:[facility] Anion Gap 14 5 - 15 mMol/L 09/15/2024 10:30 AM EDT [facility] Calcium 9.9 8.5 - 10.5 mg/dL 09/15/2024 10:30 AM EDT [facility] Est Glomerular Filtration Rate - Male 91 mL/min/1. 73 m?? 09/15/2024 10:30 AM EDT [facility] Comment: This patient's estimated GFR [...] Foundation Fasting Status Yes 09/15/2024 10:30 AM EDT [facility] Blood VENOUS BLOOD SPECIMEN / Unknown Venipuncture / Unknown 09/15/2024 9:08 AM EDT 09/15/2024 9:08 AM EDT Berenice Fagan APRN CHEMISTRY ORDERABLES [facility] [place] [address] * (ABNORMAL) Hemogram (09/15/2024 9:08 AM EDT) White Blood Cell 11.69(H) 4.00 - 9.50 x10(3)/mc L 09/15/2024 9:24 AM EDT [facility] Red Blood Cell 4.59 4.58 - 5.54 x10(6)/mc L 09/15/2024 9:24 AM EDT [facility] Hemoglobin 15.0 13.7 - 16.5 g/dL 09/15/2024 9:24 AM EDT [facility] Hematocrit 47.0 40.5 - 48.5 % 09/15/2024 9:24 AM EDT [facility] Mean Cell Volume 102.4(H) 82.9 - 93.1 fL 09/15/2024 9:24 AM EDT [facility] Mean Cell Hemoglobin 32.7(H) 27.5 - 32.1 pg 09/15/2024 9:24 AM EDT [facility] Mean Cell Hemoglobin Concentration 31.9(L) 32.0 - 35.7 g/dL 09/15/2024 9:24 AM EDT [facility] Platelet 202 145 - 357 x10(3)/mc L 09/15/2024 9:24 AM EDT [facility] Mean Platelet Volume 10.5 7.6 - 12.9 fL 09/15/2024 9:24 AM T [facility] RDW Standard Deviation 50.1(H) 36.0 - 45.0 fL 09/15/2024 9:24 AM EDT [facility] RDW coefficient of variation 13.2 11.4 - 13.8 % 09/15/2024 9:24 AM [facility] NRBC% auto 0.0 % 09/15/2024 9:24 AM [facility] NRBC Absolute <0.01 <0.01 x10(3)/mc L 09/15/2024 9:24 AM [facility] Blood VENOUS BLOOD SPECIMEN / Unknown Venipuncture / Unknown 09/15/2024 9:08 AM EDT 09/15/2024 9:08 AM EDT Berenice Fagan APRN HEMATOLOGY ORDERABLE S [facility] [place] [address] documented in this encounter Visit Diagnoses Diagnosis Pre-op testing Preoperative examination, unspecified Stenosis of right carotid artery Occlusion and stenosis of carotid artery without mention of cerebral infarction documented in this encounter Care Teams Can Line Examiner Relationship Specialty Start Date End Date Camacho Barrera DO [address] [place] [address] PCP - General Family Medicine 07/01/18 documented as of this encounter
--- OUTSIDE RECORDS SUMMARY | 2024-09-25 08:40 | XMS_ITS | Encounter Summary ---
Author Organization [facility] [place] [address] Care Team Providers Care Log Chain Worker Name Role Phone Camacho Barrera DO Primary Care Provider [phone] Encounter Details Date Type Department Care Team [...] filedocumented in this encounter Care Teams Log Chain Worker Relationship Specialty Start Date End Date Camacho Barrera DO [address] [place], [place] [id number] PCP - General Family Medicine 07/01/18 documented as of this encounter
--- OUTSIDE RECORDS SUMMARY | 2024-09-25 08:40 | XMS_ITS | Encounter Summary ---
[place] [address] Care Team Providers Care Block Press Operator Name Role Phone Camacho Barrera DO Primary Care Provider [phone] Encounter Details Date Type Department Care Team (Late st Contact Info) Description 08/15/2023 2:15 PM EDT Office [place] [phone] Ramiro Chandra MD [facility] [place] [address] PAD (peripheral artery disease) Social History Tobacco Use Types Packs/Day Years Used Date Smoking Tobacco: Never Smokeless Tobacco: Never Alcohol Use Standard Drinks/Week Comments Yes 14 (1 standard drink = 0.6 oz pu re alcohol) 2-3 drinks/night [facility] Inpatient Questions Answer Date [...] unspecified documented in this encounter Care Teams Block Press Operator Relationship Specialty Start Date End Date Camacho Barrera DO [address] [place] [address] PCP - General Family Medicine 07/01/18 documented as of this encounter
--- OUTSIDE RECORDS SUMMARY | 2024-09-25 08:40 | XMS_ITS | Encounter Summary ---
Author Organization [facility] [place] [address] Care Team Providers Care Analysis Intern Name Role Phone Camacho Barrera DO Primary Care Provider Encounter Details Date Type Department Care Team (Late st Contact Info) Description 08/01/2023 Telephone Cardiology at [address] [address] Fred Alva PA [facility] [place] [address] Social History Tobacco Use Types Packs/Day Years Used Date Smoking Tobacco: Never Smokeless Tobacco: Never Alcohol Use Standard Drinks/Week Comments Yes 14 (1 standard drink = 0.6 oz pu re alcohol) 2-3 drinks/night [facility] Inpatient Questions Answer Date Recorded [...] Date: 08/01/2023 Contact time: 10:20 AM Referring [facility] Referred by Liliana Ewing MD [address] [place] [address] Past Medical History: paroxysmal afib/flutter s/p ablation in 2018 and prior dccv as recent as early 05/2023 @[facility] CVA late 05/2023 Left CEA 07/16/23 ASCVD w PCI in 2005 at [facility]: stents to LAD x2, LCx x2, ramus [...] prior dccv as recent as early 05/2023 @[facility] at which time discharged in sinus rhythm, [...] digoxin with load as previously recommended by reacher on 05/2023 triage call and prior to [...] in management. Fred Alva PA-C Access Pager [phone] 08/01/2023 documented in this encounter Plan of Treatment Not on file documented as of this encounter Visit Diagnoses Not on filedocumented in this encounter Care Teams Analysis Intern Relationship Specialty Start Date End Date Camacoh Barrera DO [address] [place] [address] PCP - General Family Medicine 07/01/18 documented as of this encounter
--- OUTSIDE RECORDS SUMMARY | 2024-09-25 08:40 | XMS_ITS | Encounter Summary ---
[place] [address] Care Team Providers Care Varnish Dipper Name Role Phone Camacho Barrera DO Primary Care Provider [phone] Encounter Details Date Type Department Care Team (Latest Contact Info) Description 07/21/2023 10:00 AM EDT Clinical [place] [phone] Indwelling Lizama catheter present Social History Tobacco Use Types Packs/Day Years Used Date Smoking Tobacco: Never Smokeless Tobacco: Never Alcohol Use Standard Drinks/Week Comments Yes 14 (1 standard drink = 0.6 oz pu re alcohol) 2-3 drinks/night [facility] Inpatient Questions Answer Date Recorded Does [...] mg documented in this encounter Care Teams Varnish Dipper Relationship Specialty Start Date End Date Camacho Barrera DO [address] [facility] [place] [address] PCP - General Family Medicine 07/01/18 documented as of this encounter
--- OUTSIDE RECORDS SUMMARY | 2024-09-25 08:40 | XMS_ITS | Encounter Summary ---
Author Organization [facility] [place] [address] Care Team Providers Care Nail Assembly Machine Operator Name Role Phone Camacho Barrera DO Primary Care Provider [phone] Reason for Visit * Reason Comments Atrial Fibrillation DCCV 05/2023 at [facility] Encounter Details Date Type Department Care Team (Late st Contact Info) Description 08/13/2023 2:00 PM EDT Office Visit Cardiology at [address] [place] [address] Gonzales Trores MD [facility] [place] [address] Persistent atrial fibrillation Social History Tobacco Use [...] Electrophysiology Consult Patient ID Camacho Flores [id number] Camacho Flores is following up in the EP clinic, he is a former patient of Dr Nleson Chief Complaint Paroxysmal atrial fibrillation s/p ablation [...] endarterectomy. Early this month, he was at [facility] initially presenting with back pain and [...] (arteriosclerotic cardiovascular disease) PCI in [address] [facility]: stents to LAD x2, LCx [...] Take 125 mcg by mouth daily. HYDROcodone-acetaminophen ([place]) 5-325 mg tablet Take by mouth every 6 hours as needed. acetaminophen (Tylenol) 500 mg tablet Take 1 tablet by mouth every 4 hours as needed for Pain (For Mild Pain (1-3) or Fever.). 30 tablet 1 clopidogreL (Plavix) 75 mg tablet Take 1 tablet by mouth daily. 90 tablet 3 clotrimazole (LOTRIMIN) 1 % Cream Apply topically as needed. 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 Social Determinants of Health Financial [...] be well rate controlled. He has a [employer] heart rhythm monitor in place, he has had this on for about 7 days, although it appears to be somewhat 'buggy' in application. This was placed at [facility]. Today he is in atrial fibrillation with a controlled ventricular response. Otherwise he is doing well, Recommendations / Plan A) No changes to meds B) Routine follow up in about 6 months for AF surveillance GONZALES TORRES MD Cardiac Electrophysiology [facility] [place] 40 minutes were spent preparing to see [...] fibrillation documented in this encounter Care Teams Nail Assembly Machine Operator Relationship Specialty Start Date End Date Camacho Barrera DO [address] [place] [address] PCP - General Family Medicine 07/01/18 documented as of this encounter
--- OUTSIDE RECORDS SUMMARY | 2024-09-25 08:40 | XMS_ITS | Encounter Summary ---
Author Organization [facility] [place] [address] Care Team Providers Care Technical Sales Associate Name Role Phone Camacho Barrera DO Primary Care Provider [phone] Encounter Details Date Type Department Care Team (Late st Contact Info) Description 08/14/2023 Ancillary Procedure Radiology Library at [facility] [place] [address] Camacho Barrera DO [address] [place] [address] Social History Tobacco Use Types Packs/Day Years Used Date Smoking Tobacco: Never Smokeless Tobacco: Never Alcohol Use Standard Drinks/Week Comments Yes 14 (1 standard drink = 0.6 oz pu re alcohol) 2-3 drinks/night [facility] Inpatient Questions Answer Date Recorded Does [...] MR Spine (08/14/2023 12:00 AM EDT) Narrative RAD - 08/15/2023 4:36 AM EDT This exam is auto-finalizing. It's purpose is for storage only. Camacho Barrera DO [facility] FILM LIBRARY ORD ERABLES [place], [place] documented in this encounter Visit Diagnoses Not on filedocumented in this encounter Care Teams Technical Sales Associate Relationship Specialty Start Date End Date Camacho Barrera DO [address] [place] [address] PCP - General Family Medicine 07/01/18 documented as of this encounter
--- OUTSIDE RECORDS SUMMARY | 2024-09-25 08:40 | XMS_ITS | Encounter Summary ---
[place] [address] Care Team Providers Care Dough Molder Name Role Phone Camacho Barrera DO Primary Care Provider [phone] Encounter Details Date Type Department Care Team (Late st Contact Info) Description 06/25/2023 Telephone [place] [address] Sveta Rolle Social History Tobacco Use Types Packs/Day Years Used Date Smoking Tobacco: Never Smokeless Tobacco: Never Alcohol Use Standard Drinks/Week Comments Yes 14 (1 standard drink = 0.6 oz pu re alcohol) 2-3 drinks/night [facility] Inpatient Questions Answer Date Recorded Does [...] with Dr. Chandra. Letter sent. Aware of Xardayoo hilda/Lovenox bridge. documented in this encounter Plan of Treatment Not on file documented as of this encounter Visit Diagnoses Not on filedocumented in this encounter Care Teams Dough Molder Relationship Specialty Start Date End Date Camacho Barrera DO [address] [place] [address] PCP - General Family Medicine 07/01/18 documented as of this encounter
--- OUTSIDE RECORDS SUMMARY | 2024-09-25 08:40 | XMS_ITS | Encounter Summary ---
[place] [address] Care Team Providers Care Self Sealing Fuel Tank Builder Name Role Phone Camacho Barrera DO Primary Care Provider [phone] Encounter Details Date Type Department Care Team (Late st Contact Info) Description 09/01/2023 Telephone [place]ascular [place] [phone] Natalie Rodrigues, RN Social History Tobacco Use [...] on filedocumented in this encounter Care Teams Self Sealing Fuel Tank Builder Relationship Specialty Start Date End Date Camacho Barrera DO [address] [place] [address] PCP - General Family Medicine 07/01/18 documented as of this encounter
--- OUTSIDE RECORDS SUMMARY | 2024-09-25 08:40 | XMS_ITS | Encounter Summary ---
[place] [address] Care Team Providers Care Winding Inspector Name Role Phone Camacho Barrera DO Primary Care Provider [phone] Reason for Visit * Consultation (Routine) - Closed Specialty Diagnoses / Procedures Referred By Mike johnson Referred To Contact Vascular Surgery Diagnoses Right-sided extracranial carotid artery stenosis ROUTINE , No studies - Right-sided extracranial carotid artery stenosis , RESPIRATORY CLINICIAN / PA / Milgaros [place], HOSPICE VOLUNTEER COORDINATOR [facility] [place] [address] [facility] Vascular Surg [address] [place] [address] Referral ID Status Reason Start Date Expiration Date V isits Requested Visits Authorized [id number] Closed Consult, Test & Treat 05/27/2023 05/26/2024 1 1 Encounter Details Date Type Department Care Team (Late st Contact Info) Description 06/20/2023 9:30 AM EDT Office [place] [address] Ramiro Chandra MD [facility] [place] [address] PAD (peripheral artery disease) Social History Tobacco [...] Chandra MD - 06/20/2023 9:30 AM EDT [facility] staff: I was asked by the [...] unspecified documented in this encounter Care Teams Winding Inspector Relationship Specialty Start Date End Date Camacho Barrera DO [address] [place] [address] PCP - General Family Medicine 07/01/18 documented as of this encounter
--- OUTSIDE RECORDS SUMMARY | 2024-09-25 08:40 | XMS_ITS | Encounter Summary ---
Author Organization [facility] [place] [address] Care Team Providers Care Resource Room Special Education Teacher Name Role Phone Camacho Barrera DO Primary Care Provider [phone] Encounter Details Date Type Department Care Team (Late st Contact Info) Description 07/31/2023 12:05 AM EDT Ancillary Procedure Radiology Library at [facility] [place] [phone] Camacho Barrera DO [address] [place] [address] Social History Tobacco Use Types [...] Abdomen Pelvis (07/31/2023 12:05 AM EDT) Narrative RAD - 08/01/2023 9:30 AM EDT This exam is auto-finalizing. It's purpose is for storage only. Camacho Barrera DO [facility] FILM LIBRARY ORD ERABLES Performing Organization Address City/State/[facility] Co de Phone Number [place], [place] documented in this encounter Visit Diagnoses Not on filedocumented in this encounter Care Teams Resource Room Special Education Teacher Relationship Specialty Start Date End Date Camacho Barrera DO [address] [place] [address] PCP - General Family Medicine 07/01/18 documented as of this encounter
--- OUTSIDE RECORDS SUMMARY | 2024-09-25 08:40 | XMS_ITS | Encounter Summary ---
[place] [address] Care Team Providers Care Fire Alarm Operator Name Role Phone Mirna Barrera DO Primary Care Provider [phone] Reason for Visit * Auth/Cert (Routine) Specialty Diagnoses / Procedures Referred By Contac t Referred To Contact Diagnoses Occlusion and stenosis of bilateral carotid arteries Encounter for other preprocedural examination Bilateral Carotid Stenosis Procedures PRO THROMBOENDARTECTMY NECK, NECK INCIS @ENDARTERECTOMY, CAROTID, VERTEBRAL,SUBCLAVIAN W\WO PATCH GRAFT (WRVU 21.16) Lorena Chandra MD [facility] [place] [address] [facility] Referral ID Status Reason Start Date Expiration Date Visits Re quested Visits Authorized [id number] 1 1 Encounter Details Date Type Department Care Team (Late st Contact Info) Description 07/16/2023 11:46 AM EDT - 07/16/2023 4:02 PM EDT Surgery [place] [id number] Lorena Chandra MD [facility] [place] [address] @ENDARTERECTOMY, CAROTID, VERTEBRAL,SUBCLAVIAN W\WO PATCH GRAFT (WRVU [...] went to the OR after presenting to [facility] with right hand weakness for a left carotid endarterectomy. The procedure went well, however by the end of the procedure a lizama catheter was placed with adalberto blood being drained from the lizama. Mr. lFores denies history of BPH, cystitis, or other [...] 2:00 PM Gonzales Torres MD Cardiology at [place] Arrive at: [facility] [address] [phone] 09/09/2023 11:00 AM Milagros Parra APRN Neurology at [facility] Arrive at: Senior Talent Acquisition Specialist Area 3C [phone] Future Orders Complete By Expires Carotid Duplex, Unilateral [VAS2 Custom] 08/14/2023 (Approximate) 02/13/2024 Process Instructions: There is no in-house vascular slab depiler operator available on weeknights (5pm-8am), weekends, or holidays. IF THIS IS A REQUEST FOR AN EMERGENT STUDY DURING THOSE HOURS, please have the senior provider responsible for the patient page the Vascular Surgery Fellow/Senior Resident tool and production planner to discuss options. Scheduling Instructions: Questions: Laterality: Left Indication for study/signs & symptoms: Carotid Stenosis Question to be answered: Poost CEA Preferred location?: [facility] CT Abdomen & Pelvis wo Contrast [[id number] Custom] 08/16/2023 (Approximate) 02/15/2024 Process Instructions: 1.Choose [...] for radiologist: Where will study be performed?: [facility] Radiology Stat read required?: Does patient require sedation?: GA rationale: Date of injury if applicable: Urinalysis with reflex Culture [[id number] Custom] 08/16/2023 (Approximate) 02/15/2024 Process Instructions: A urine culture will be added on by the lab if WBCs greater than 10 and/or moderate or large leukocytes and/or positive nitrites are found. Scheduling Instructions: Comments: Questions: Preferred urine source for collection: Clean Catch Urine US Retroperitoneal Complete [[id number] Custom] 08/16/2023 (Approximate) 02/15/2024 Process Instructions: This exam includes imaging of both kidneys, ureters & bladder. Scheduling Instructions: Questions: Where will study be performed?: [facility] Radiology Portable exam?: Ultrasound scheduling priority: Reason for exam and clinical history: gross hematuria Clinical information / fried questions for radiologist: Stat read required?: Date of injury if applicable: Requested Time: Anticoagulation & Antiplatelet: Anticoagulation: Lovenox Agent: Enoxaparin Indication: CEA Intended Duration: Indefinitely Antiplatelet: ASA Agent: Aspirin Indication: CEA Intended Duration: Indefinitely For questions regarding these medications, please contact Vascular Surgery at [phone]. For issues on weeknights after 5pm and weekends please call [phone] and ask for the Vascular Fellow oncall. [...] these medications, please contact Vascular Surgery at [phone]. For issues on weeknights after 5pm and weekends please call [phone] and ask for the Vascular Fellow onctita. For questions regarding these medications, please contact Vascular Surgery at [phone]. For issues on weeknights after 5pm and weekends please call [phone] and ask for the Vascular Fellow onctita. [...] these medications, please contact Vascular Surgery at [phone]. For issues on weeknights after 5pm and weekends please call [phone] and ask for the Vascular Fellow laquita. documented in this encounter Medications at Time of Discharge Medication Sig Dispensed Refills Start Date End Date clotrimazole (LOTRIMIN) 1 % Cream Apply topically as needed. Viss Verio test strips Strip USE TO CHECK BLOOD GLUCOSE DAILY DIRECTED 03/19/2023 atorvastatin (Lipitor) 80 mg tablet Take 1 tablet by mouth every evening. 90 tablet 3 05/21/2023 timoloL (Timoptic) 0.5 % Drops Place 1 drop into the left eye 2 times daily. 06/19/2022 acetaminophen (Tylenol) 500 mg tablet Take 1 tablet by mouth every 4 hours as needed for Pain (For Mild Pain (1-3) or Fever.). 30 tablet 1 07/17/2023 09/08/2024 clopidogreL (Plavix) 75 mg tablet Take 1 tablet by mouth daily. 90 tablet 3 07/18/2023 07/26/2024 enoxaparin (Lovenox) 100 mg/mL Syringe Inject 100 [...] Marin RN - 07/17/2023 12:45 PM EDT [facility] Short Stay Unit Discharge Note All [...] Andujar MD - 07/16/2023 8:48 PM EDT [facility] Department of Vascular Surgery Inpatient Post Op Check Note Patient Name: Mirna Flores Patient : 1945 Patient [facility] Attending Surgeon: LORENA CHANDRA ID: Mirna Flores [...] Admission (Current) from 07/16/2023 in PACU at [facility] OfficeVisit from 06/20/2023 in Vascular Surgery at [facility] Weight 95.3 kg (210 lb) 1 07/16/2023 [...] QTC Calculated (Bezet) 469 ms Calculated P [place] 29 degrees Calculated R [place] 47 degrees Calculated T [place] 105 degrees INTERPRETATION Normal sinus rhythm Low voltage QRS Borderline ECG When compared with ECG of 20-MAY-2023 12:46, Premature atrial complexes are no longer Present Confirmed by MD Jose, Marcellus ([id number]) on 07/16/2023 4:38:58 PM Carotid Duplex, Unilateral Result Value Ref Range VB Text Report Department: Vascular Surgery Lab Patient: [id number] (MIRNA FLORES) CPT: 97824 Referring Physician: LORENA CHANDRA Indications: Intra-op left [...] MD, PGY-1 07/16/2023 Vascular Surgery Service Pager [phone] * Michaela Stuart RN - 07/16/2023 8:29 [...] made aware. MORIAH Gale for break coverage. 1699- Neuro remains intact, VSS on RA. Pt's at bedside. 1729- Vascular team rounding on pt. 1899- Report [...] Anticoagulation: name: Xarelto, indication: afib, duration: intermediate card tender Antiplatelet: name(s): ASA , duration: detention Patient Active Problem List Diagnosis Acute ischemic stroke Stroke Premature ventricular beats Overview Note: Zio (December 2018): 8.6% burden, 2 morphologies prevalent Zio (August 2020): 11.8% burden, 2 morphologies prevalent Status post ablation of atrial fibrillation ASCVD (arteriosclerotic cardiovascular disease) Overview Note: PCI in 2005 at [facility]: stents to LAD x2, LCx x2, ramus [...] 2.25) performed by Fred Maki MD at [facility] MAIN OR PRO STEREO BX/ASPIR/EXCIS, INTRACRANIAL LESN Right 01/27/2015 @STEREOTACTIC BX,ASP, OR EXC.-INTRACRANIAL LESION, W/SCAN performed by Jose Small MD at [facility] MAIN OR PRO STEREOTACTIC CPTR ASSTD PX CRANIAL, INTRADURAL Right 01/27/2015 STEREOTACTIC COMPUTER-ASSTD NAVIGATIONAL CRANIAL INTRADURAL performed by Jose Small MD at [facility] MAIN OR Functional Status: Lives at [...] [facility], lives with in [facility]. Social Determinants of Health Financial Resource [...] into the left eye 2 times daily. OneToVeristorm Verio test strips Strip USE TO CHECK [...] Duplex 05/21/23: Department: Vascular Surgery Lab Patient: [id number] (MIRNA FLORES) CPT: 10421 Referring Physician: NIKHIL BARNETT Indications: Left hemispheric [...] Admission order reviewed. 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: [facility] [place] MEDICARE Payor: [facility] [place] MEDIC[place] / Plan: [facility] / Product Type: *No Product type* / Secondary Insurance: N/A ; Prescription Coverage: Preferred Pharmacy: [id number] - [place], [place] - [address] [facility] [address] [address] [facility] [place] [address] [facility] [address] Advance Care Planning: Attempt Cardiopulmonary Resuscitation - Inpatient Received - Patients address: [address] [facility] [address] Social & Family Supports: Extended Emergency Contact Information Primary Emergency Contact: Kisha Flores Address: [address] [place] [address] [facility] Relation: Spouse Secondary Emergency Contact: Michelle Giron [facility] Relation: Child Transportation Anticipated: private car Assessment: Patient with no apparent RNCM/SW needs at this time. No housing, transportation, insurance, resources concerns identified at this time. Supports in place to achieve a safe post-hospital transition. No identified barriers to accessing necessary care and/or follow-up after discharge. Plan: Patient to d/c to home via private car when medically ready. Registered Nurse Vehicle Safety Inspector / Bruise Trimmer will continue to follow patient???s progress and remain available if situation changes for coordination of care, psychosocial support and/or discharge planning. Office of Care Management Domi Prabhakar RN, BSN Case Management Work [phone] * Consult Note - Akila Herman MD [...] 2.25) performed by Fred Maki MD at [facility] MAIN OR PRO STEREO BX/ASPIR/EXCIS, INTRACRANIAL LESN Right 01/27/2015 @STEREOTACTIC BX,ASP, OR EXC.-INTRACRANIAL LESION, W/SCAN performed by Jose Small MD at [facility] MAIN OR PRO STEREOTACTIC CPTR ASSTD PX CRANIAL, INTRADURAL Right 01/27/2015 STEREOTACTIC COMPUTER-ASSTD NAVIGATIONAL CRANIAL INTRADURAL performed by Jose Small MD at [facility] MAIN OR Family History: Family History [...] [facility], lives with in [facility]. Social Determinants of Health Financial Resource [...] Monroe MD - 07/16/2023 6:07 PM EDT [facility] Operative Note Patient Name: Mirna Flores : [id number] MR#: [id number] Case Date: 07/16/2023 Surgeon: Surgeon(s) and Role: [...] with some problems : see above re: Nelda (Please see the Surgical Encounter Summary for [...] carotid artery in standard fashion. Using a Buchanan elevator, endarterectomy of the common carotid and [...] stenosis, asymptomatic, bilateral Thromboendartectmy Neck, Neck Incis (18730) 07/16/2023 12:34 PM EDT Pre-op testing Carotid [...] PM Electronically signed by: David Madera MD, [facility] ([phone]), at 09/09/2023 1:43 PM Thank you for letting us participate in the care of this patient. If you are a health care provider and have any questions regarding this report, please contact the number above. For patients who have questions, please contact the health chiropractic care that requested your imaging first. ? David Madera, Staff Physician Electronically Signed Final Report ?? 09/09/2023 01:50 pm Narrative 09/09/2023 1:50 PM EDT Renal ? (Signed Final 09/09/2023 01:50 pm) PATIENT INFO: ID #: ? [id number] ?: ??[birth year] (77 yrs)(M) Name: ? IMRNA FLORES ? Visit Date: 09/09/2023 12:24 pm PERFORMED BY: Attending: ?Santy HOOD, David John Resident: ? Marvin Huntley MD Performed By: ? Kiki Zamora RDMS Referred By: ?LORENA CHANDRA Location: ? [place] SERVICE(S) PROVIDED: URETRO - Retroperitoneal Complete - [id number] ? [id number] INDICATIONS: gross hematuria COMPARISON: CT: Abdomen/Pelvis 09/09/2023 [...] 09/09/2023 01:50 pm) PATIENT INFO: ID #: [id number] : [birth year] (77 yrs)(M) Name: MIRNA FLORES Visit Date: 09/09/2023 12:24 pm PERFORMED BY: Attending: David Madera MD Resident: Marvin Huntley MD Performed By: Kiki Zamora RDMS Referred By: LORENA CHANDRA Location: [place] SERVICE(S) PROVIDED: URETRO - Retroperitoneal Complete - [id number] INDICATIONS: gross hematuria COMPARISON: CT: Abdomen/Pelvis 09/09/2023 [...] who have questions, please contact the health chiropractic care that requested your imaging first. David Madera, Staff Physician Electronically Signed Final Report 09/09/2023 01:50 pm Lorena Chandra MD IM US GEN ORDERABLE S * (ABNORMAL) Urinalysis with reflex Culture (09/09/2023 10:16 AM EDT) Glucose, Urine Dipstick Negative Negative mg/dL [facility] Protein, Urine Dipstick Trace(A) Negative mg/dL [facility] Bilirubin, Urine Dipstick Negative Negative mg/dL [facility] Comment: Clinical correlation required for positive Urine Bilirubin results as false positive may occur with some drugs and drug related products. If a false positive is suspected a serum total bilirubin should be considered if clinically indicated. Urobilinogen, Urine Dipstick Normal Normal mg/dL [facility] pH, Urn (dipstick) 5.0 5.0 - 8.0 [facility] Blood, Urine Dipstick Trace(A) Negative mg/dL [facility] Ketone, Urine Dipstick Trace(A) Negative mg/dL [facility] Nitrite, Urine Dipstick Negative Negative [facility] Leukocytes, Urine Dipstick Small(A) Negative mcL [facility] Appearance, Urine Dipstick Cloudy(A) Clear [facility] Specific [place] Urine Automated 1.027 1.005 - 1.030 [facility] Color, Urine Dipstick Yellow Yellow [facility] Reflex to Culture Yes [facility] Clean Catch Urine 09/09/2023 10:16 AM EDT 09/09/2023 10:19 AM EDT Narrative Resulting Agency Comment Spec In Lab Lorena Chandra MD URINE ORDERABLES [facility] [place] [address] * CT Abdomen & Pelvis wo Contrast [...] who have questions please contact the health chiropractic care that requested your imaging first. ? Electronically signed by: Lia Lucas MD, [facility] ([phone]), at 09/09/2023 11:12 AM Narrative 09/09/2023 11:12 [...] patients who have questions please contactthe health chiropractic care that requested your imaging first. Electronically signed by: Lia Lucas MD, [facility]([phone]), at 09/09/2023 11:12 AM Lorena Chandra MD IMG CT ORDERABLES * Carotid Duplex, Unilateral (08/15/2023 1:01 PM EDT) VB Text Report Department: Vascular Surgery Lab Patient: [id number] (MIRNA FLORES) CPT: 72827 Referring Physician: LORENA CHANDRA ?? Indications: S/P [...] EDT) Urine Culture 1,000-9,000 cfu/ml Insignificant growth [facility] Indwelling Catheter Urine 07/16/2023 9:57 PM EDT 07/17/2023 1:49 AM EDT Narrative Resulting Agency Comment Spec In Lab Crispin Andujar MD MICROBIOLOGY - GEN ERAL ORDERABLES Performing Organization Address [facility] Co de Phone Number [facility] [place] [address] * (ABNORMAL) Urinalysis Microscopic Exam (07/16/2023 9:57 PM EDT) RBC, Urine >100(H) 0 - 3 /HPF [facility] Comment:Interpret with cauti on, manual microscopic results are from an unspun specimen. WBC, Urine >100(H) 0 - 3 /HPF [facility] Comment:Interpret with cauti on, manual microscopic results are from an unspun specimen. Bacteria, Urine Occasiona l(A) None /HPF [facility] Comment:Interpret with cauti on, manual microscopic results are from an unspun specimen. Indwelling Catheter Urine 07/16/2023 9:57 PM EDT 07/16/2023 10:24 PM EDT Narrative Resulting Agency Comment Spec In Lab Crispin Andujar MD URINE ORDERABLES Performing Organization Address [facility] Co de Phone Number [facility] [place] [address] * Urine Hold (07/16/2023 9:57 PM EDT) Hold, Urine Sample in lab. [facility] Urine Urine / Unknown 07/16/2023 9 :57 PM EDT 07/16/2023 10:24 PM EDT Crispin Andujar MD URINE ORDERABLES Performing Organization Address City/[facility]/ZIP Co de Phone Number [facility] [place] [address] * (ABNORMAL) Urinalysis with reflex Culture (07/16/2023 9:57 PM EDT) Glucose, Urine Dipstick See Note Negative [facility] Comment: Unable to perform chemistry testing due to interfering substances, grossly bloody. Protein, Urine Dipstick See Note Negative [facility] Comment: Unable to perform chemistry testing due to interfering substances, grossly bloody. Bilirubin, Urine Dipstick See Note Negative [facility] Comment: Unable to perform chemistry testing due to interfering substances, grossly bloody. Clinical correlation required for positive Urine Bilirubin results as false positive may occur with some drugs and drug related products. If a false positive is suspected a serum total bilirubin should be considered if clinically indicated. Urobilinogen, Urine Dipstick See Note Normal [facility] Comment: Unable to perform chemistry testing due to interfering substances, grossly bloody. pH, Urn (dipstick) See Note 5.0 - 8.0 [facility] Comment: Unable to perform chemistry testing due to interfering substances, grossly bloody. Blood, Urine Dipstick See Note Negative [facility] Comment: Unable to perform chemistry testing due to interfering substances, grossly bloody. Ketone, Urine Dipstick See Note Negative [facility] Comment: Unable to perform chemistry testing due to interfering substances, grossly bloody. Nitrite, Urine Dipstick See Note Negative [facility] Comment: Unable to perform chemistry testing due to interfering substances, grossly bloody. Leukocytes, Urine Dipstick See Note Negative [facility] Comment: Unable to perform chemistry testing due to interfering substances, grossly bloody. Appearance, Urine Dipstick Turbid(A) Clear [facility] Comment: Unable to perform chemistry testing due to interfering substances, grossly bloody. Specific [place] Urine Automated See Note 1.005 - 1.030 [facility] Comment: Unable to perform chemistry testing due to interfering substances, grossly bloody. Color, Urine Dipstick Red(A) [facility] Comment: Unable to perform chemistry testing due to interfering substances, grossly bloody. Reflex to Culture Yes [facility] Comment: Unable to perform chemistry testing due to interfering substances, grossly bloody. Indwelling Catheter Urine 07/16/2023 9:57 PM EDT 07/16/2023 10:24 PM EDT Narrative Resulting Agency Comment Spec In Lab Lorena Chandra MD URINE ORDERABLES [facility] [place] [address] * Carotid Duplex, Unilateral (07/16/2023 2:41 PM EDT) VB Text Report Department: Vascular Surgery Lab Patient: [id number] (MIRNA FLORES) CPT: 92406 Referring Physician: LORENA CHANDRA ?? Indications: ??Intra-op [...] Cell 10.6(H) 4.0 - 9.5 x10(3)/mc L [facility] Red Blood Cell 4.50(L) 4.58 - 5.54 x10(6)/mc L [facility] Hemoglobin 14.5 13.7 - 16.5 g/dL [facility] Hematocrit 43.6 40.5 - 48.5 % [facility] Mean Cell Volume 96.9(H) 82.9 - 93.1 fL [facility] Mean Cell Hemoglobin 32.2(H) 27.5 - 32.1 pg [facility] Mean Cell Hemoglobin Concentration 33.3 32.0 - 35.7 g/dL [facility] Platelet 229 145 - 357 x10(3)/mc L [facility] RDW Standard Deviation 46.9(H) 36.0 - 45.0 fL [facility] RDW coefficient of variation 13.2 11.4 - 13.8 % [facility] Mean Platelet Volume 10.4 7.6 - 12.9 fL [facility] NRBC% auto 0.0 % [facility] NRBC Absolute 0.000 0.000 - 0.000 x10(3)/mc L [facility] Blood 07/16/2023 9:52 AM EDT 07/16/2023 10:02 AM EDT Narrative Resulting Agency Comment Spec In Lab Lorena Chandra MD HEMATOLOGY ORDERABLE S [facility] [place] [address] * (ABNORMAL) Basic Metabolic Panel (non-fasting) (07/16/2023 9:52 AM EDT) Glucose 129 65 - 199 mg/dL [facility] Comment:Diabetes: >=200 mg/d L plus symptoms Blood Urea Nitrogen 18 10 - 20 mg/dL [facility] Creatinine 0.78(L) 0.80 - 1.50 mg/dL [facility] Sodium 141 135 - 145 mmol/L [facility] Potassium 4.0 3.5 - 5.0 mmol/L [facility] Comment: Please note: ??Patients with WBC >100,000 may have falsely elevated Potassium levels. ??For accurate Potassium quantification in these patients send serum separator tube (gold top) for subsequent determinations. ??Contact the Clinical Chemistry Laboratory if there are any questions. Chloride 103 98 - 107 mmol/L [facility] Carbon Dioxide 26 22 - 31 mmol/L [facility] Anion Gap 12 5 - 15 mmol/L [facility] Calcium 10.1 8.5 - 10.5 mg/dL [facility] [...] In Lab Lorena Chandra MD CHEMISTRY ORDERABLES [facility] [place] [address] * Prealbumin (07/16/2023 9:52 AM EDT) Prealbumin 22 20 - 40 mg/dL [facility] Comment: Prealbumin levels are generally lower in the pediatric population; adult concentrations are usually attained near puberty. Blood 07/16/2023 9:52 AM EDT 07/16/2023 10:02 AM EDT Narrative Resulting Agency Comment Spec In Lab Lorena Chandra MD CHEMISTRY ORDERABLES [facility] [place] [address] * SCAN DOC: IMPLANTABLE DEVICES (07/16/2023 12:00 [...] on Fri07/17/23 at 0900, Until Discontinued, Routine 0823 (Given - Provid er: Malena Marin RN) atorvastatin (Lipitor) tablet 80 mg 80 mg, Oral, EVERY EVENING, First dose on Fri07/16/23 at 2200, Until Discontinued, Routine clopidogreL (Plavix) tablet 75 mg 75 mg, Oral, DAILY, First dose on Fri07/17/23 at 0900, Until Discontinued, Routine 822 (Given - Provid er: Malena Marin RN) [...] PRN, Starting on Fri07/16/23 at 1619, Until Fri07/17/23 at 1518, Pain, For Mild Pain (1-3) [...] PRN, Starting on Fri07/16/23 at 1619, Until Fri07/17/23 at 1518, High Blood Pressure, for blood [...] PRN, Starting on Fri07/16/23 at 2143, Until Fri07/17/23 at 1518, Nausea, If multiple antiemetics are [...] hours documented in this encounter Care Teams Fire Alarm Operator Relationship Specialty Start Date End Date Mirna Barrera DO [address] [place] [address] PCP - General Family Medicine 07/01/18 documented as of this encounter
--- OUTSIDE RECORDS SUMMARY | 2024-09-25 08:40 | XMS_ITS | Encounter Summary ---
[place] [address] Care Team Providers Care Nike Athlete Name Role Phone Camacho Barrera DO Primary Care Provider [phone] Reason for Visit * Diagnostic Test (Routine) - Closed Specialty Diagnoses / Procedures Referred By Mike johnson Referred To Contact Diagnoses Left carotid artery stenosis Procedures Carotid Duplex, Unilateral de Edwardo Bowling MD [facility] [place] [address] [facility] Vascular Lab [address] [place] [address] Referral ID Status Reason Start Date Expiration Date V isits Requested Visits Authorized [id number] Closed Specialty Service Requested 07/17/2023 07/16/2024 1 1 Encounter Details Date Type Department Care Team (Late st Contact Info) Description 08/15/2023 1:30 PM EDT Tech Visit [place] [address] Michael Hebert Left carotid artery stenosis Social History Tobacco Use Types Packs/Day Years Used Date Smoking Tobacco: Never Smokeless Tobacco: Never Alcohol Use Standard Drinks/Week Comments Yes 14 (1 standard drink = 0.6 oz pu re alcohol) 2-3 drinks/night [facility] Inpatient Questions Answer Date Recorded Does [...] Text Report Department: Vascular Surgery Lab Patient: [id number] (CAMACHO FLORES) CPT: 19881 Referring Physician: RAMIRO CHANDRA ?? Indications: S/P [...] infarction documented in this encounter Care Teams Nike Athlete Relationship Specialty Start Date End Date Camacho Barrera DO [address] [place] [address] PCP - General Family Medicine 07/01/18 documented as of this encounter
--- OUTSIDE RECORDS SUMMARY | 2024-09-25 08:40 | XMS_ITS | Encounter Summary ---
Author Organization [facility] [place] [address] Care Team Providers Care Woodworking Shop Hand Name Role Phone Camacho Barrera DO Primary Care Provider [phone] Encounter Details Date Type Department Care Team (Late st Contact Info) Description 09/09/2023 2:20 PM EDT Office [place] [address] Jaz Daniel MD [facility] [place] [address] Hematuria, unspecified type Social History Tobacco Use [...] in this encounter Progress Notes * Jaz aDniel MD - 09/09/2023 2:20 PM EDT UROLOGY [...] 2.25) performed by Fred Maki MD at [facility] MAIN OR PRO STEREO BX/ASPIR/EXCIS, INTRACRANIAL LESN Right 01/27/2015 @STEREOTACTIC BX,ASP, OR EXC.-INTRACRANIAL LESION, W/SCAN performed by Jose Small MD at [facility] MAIN OR PRO STEREOTACTIC CPTR ASSTD PX CRANIAL, INTRADURAL Right 01/27/2015 STEREOTACTIC COMPUTER-ASSTD NAVIGATIONAL CRANIAL INTRADURAL performed by Jose Small MD at [facility] MAIN OR PRO THROMBOENDARTECTMY NECK, NECK INCIS Left 07/16/2023 @ENDARTERECTOMY, CAROTID, VERTEBRAL,SUBCLAVIAN W\WO PATCH GRAFT (WRVU 21.16) performed by Ramiro Chandra MD at [facility] MAIN OR SOCIAL HISTORY Social [...] digoxin (LANOXIN) 125 mcg, Oral, DAILY HYDROcodone-acetaminophen ([place]) 5-325 mg tablet Oral, EVERY 6 HOURS [...] mcL Appearance UA Cloudy (A) Clear Spec [place] UA 1.027 1.005 - 1.030 Color UA [...] EDT) Glucose 116 65 - 199 mg/dL [facility] Comment:Diabetes: >=200 mg/d L plus symptoms Blood Urea Nitrogen 19 10 - 20 mg/dL [facility] Creatinine 0.77(L) 0.80 - 1.50 mg/dL [facility] Sodium 142 135 - 145 mmol/L [facility] Potassium 3.9 3.5 - 5.0 mmol/L [facility] Comment: Please note: ??Patients with WBC >100,000 may have falsely elevated Potassium levels. ??For accurate Potassium quantification in these patients send serum separator tube (gold top) for subsequent determinations. ??Contact the Clinical Chemistry Laboratory if there are any questions. Chloride 106 98 - 107 mmol/L [facility] Carbon Dioxide 25 22 - 31 mmol/L [facility] Anion Gap 11 5 - 15 mmol/L [facility] Calcium 9.7 8.5 - 10.5 mg/dL [facility] Est Glomerular Filtration Rate 92 >=60 mL/min/1. 73 m?? [facility] Comment: This patient's estimated GFR was [...] In Lab Jaz Daniel MD CHEMISTRY ORDERABLES [facility] [place] [address] documented in this encounter Visit Diagnoses Diagnosis Hematuria, unspecified type documented in this encounter Care Teams Woodworking Shop Hand Relationship Specialty Start Date End Date Myrter, Camacho A, DO [address] [place] [address] PCP - General Family Medicine 07/01/18 documented as of this encounter
--- OUTSIDE RECORDS SUMMARY | 2024-09-25 08:40 | XMS_ITS | Encounter Summary ---
[place] [address] Care Team Providers Care Special Education Administrator Name Role Phone Camacho Barrera DO Primary Care Provider [phone] Encounter Details Date Type Department Care Team (Late st Contact Info) Description 07/19/2023 [place] [address] Yu Vergara MD [facility] [place] [address] Social History Tobacco Use Types Packs/Day Years [...] on filedocumented in this encounter Care Teams Special Education Administrator Relationship Specialty Start Date End Date Camacho Barrera DO [address] [place] [address] PCP - General Family Medicine 07/01/18 documented as of this encounter
--- OUTSIDE RECORDS SUMMARY | 2024-09-25 08:40 | XMS_ITS | Encounter Summary ---
[place] [address] Care Team Providers Care Telephone Supervisor Name Role Phone Camacho Barrera DO Primary Care Provider [phone] Encounter Details Date Type Department Care Team (Late st Contact Info) Description 08/01/2023 External [place] [address] Social History Tobacco Use Types Packs/Day Years [...] (08/01/2023 9:49 AM EDT) Historical Provider MD MEDIA MGR SCAN EX T ORDR/RSLT documented in this encounter Visit Diagnoses Not on filedocumented in this encounter Care Teams Telephone Supervisor Relationship Specialty Start Date End Date Camacho Barrera DO [address] [place] [address] PCP - General Family Medicine 07/01/18 documented as of this encounter
--- OUTSIDE RECORDS SUMMARY | 2024-09-25 08:40 | XMS_ITS | Encounter Summary ---
Author Organization [facility] [place] [address] Care Team Providers Care Co Teacher Name Role Phone Camacho Barrera DO Primary Care Provider [phone] Encounter Details Date Type Department Care Team [...] on filedocumented in this encounter Care Teams Co Teacher Relationship Specialty Start Date End Date Camacho Barrera DO [address] [place], [place] [id number] PCP - General Family Medicine 07/01/18 documented as of this encounter
--- OUTSIDE RECORDS SUMMARY | 2024-09-25 08:40 | XMS_ITS | Encounter Summary ---
[place] [address] Care Team Providers Care Ob Gyn Physician Assistant Name Role Phone Camacho Barrera DO Primary Care Provider Encounter Details Date Type Department Care Team (Late st Contact Info) Description 09/05/2023 Telephone [place] [address] Abigail Adams RN Social History Tobacco Use Types Packs/Day Years Used Date Smoking Tobacco: Never Smokeless Tobacco: Never Alcohol Use Standard Drinks/Week Comments Yes 14 (1 standard drink = 0.6 oz pu re alcohol) 2-3 drinks/night [facility] Inpatient Questions Answer Date Recorded Does Anyone [...] bleeding episodes occur. Tomas verbalized understanding. MORIAH [facility]st[facility] documented in this encounter Plan of Treatment Not on file documented as of this encounter Visit Diagnoses Not on filedocumented in this encounter Care Teams Ob Gyn Physician Assistant Relationship Specialty Start Date End Date Camacho Barrera DO [address] [place] [address] PCP - General Family Medicine 07/01/18 documented as of this encounter
--- OUTSIDE RECORDS SUMMARY | 2024-09-25 08:40 | XMS_ITS | Encounter Summary ---
[place] [address] Care Team Providers Care Business Transformation Manager Name Role Phone Camacho Barrera DO Primary Care Provider [phone] Reason for Visit * Auth/Cert (Routine) Specialty Diagnoses / Procedures Referred By Mike johnson Referred To Contact Diagnoses Occlusion and stenosis of bilateral carotid arteries Encounter for other preprocedural examination Bilateral Carotid Stenosis Procedures PRO THROMBOENDARTECTMY NECK, NECK INCIS @ENDARTERECTOMY, CAROTID, VERTEBRAL,SUBCLAVIAN W\WO PATCH GRAFT (WRVU 21.16) Ramiro Chandra MD [facility] [place] [address] [facility] Referral ID Status Reason Start Date Expiration Date Visits Re quested Visits Authorized [id number] 1 1 Encounter Details Date Type Department Care Team (Late st Contact Info) Description 07/16/2023 12:35 PM EDT Anesthesia Event Main [place] [address] Dave Phipps MD [facility] [place] [address] Ugo Magana MD [facility] [place] [address] Anesthesia Record Procedure Summary Procedure Name Responsible [...] and Airways Type Details Placement Removal (RETIRED) Peripheral IV Line - Single Lumen 07/16/23; 1230; metacarpal vein (top of hand), right; [id number] catheter system; 20 gauge, 1 in length; [...] SOURAV Cantor; Removal Date: 07/16/23; Removal Time: 1536 08/16/23 1242 by Nguyen Pandya 07/16/23 1536 by Josh Hernandez CRNA Arterial Line 07/16/23; 1251; radi al artery, right; 20 gauge; continuous blood pressure monitoring; 07/16/23; 202407/16/23 1251 by Nguyen Pandya 07/16/232024 by Michaela Stuart RN (RETIRED) Peripheral IV Line - Single Lumen 07/16/23; 1252; 18 gauge; 07/17/23; 1230 07/16/23 1252 by Nguyen Pandya 07/17/23 1230 by Malena Marin RN Incision 07/16/23; 1330; Left ; neck; vertical; LDA not present upon assessment; 09/16/24; 0700 07/16/23 1330 by Sydni [place] RN 09/16/24 0700 by Avril Riggs RN documented in this encounter Social History [...] Procedure Summary Date: 07/16/23 Room / Location: [facility] Anesthesia Start: 1235 Anesthesia Stop: 1550 Procedure: @ENDARTERECTOMY, CAROTID, VERTEBRAL,SUBCLAVIAN W\WO PATCH GRAFT (WRVU 21.16) (Left: Neck) Diagnosis: Pre-op testing Carotid stenosis, asymptomatic, bilateral (Bilateral Carotid Stenosis) Surgeons: Ramiro Chandra MD Responsible Provider: Dave Phipps MD Anesthesia Type: general ASA Status: 3 All Anesthesia Providers: Anesthesiologist: Dave Phipps MD NURSE ASSESSOR: Josh Hernandez CRNA Student Nurse Slubber Machine Operator: Nguyen Pandya Vitals Value Taken Time BP 139/67 07/16/23 1700 Temp 36.4 ??C (97.5 ??F) 07/16/23 1645 Pulse 60 07/16/23 1701 Resp 18 07/16/23 1701 SpO2 92 % 07/16/23 1701 Pain Level 0 07/16/23 1645 Vitals shown include unvalidated device data. Patient Location: PACU/[facility] Level of Consciousness: Awake and Alert [...] 2.25) performed by Fred Maki MD at [facility] MAIN OR PRO STEREO BX/ASPIR/EXCIS, INTRACRANIAL LESN Right 01/27/2015 @STEREOTACTIC BX,ASP, OR EXC.-INTRACRANIAL LESION, W/SCAN performed by Jose Small MD at [facility] MAIN OR PRO STEREOTACTIC CPTR ASSTD PX CRANIAL, INTRADURAL Right 01/27/2015 STEREOTACTIC COMPUTER-ASSTD NAVIGATIONAL CRANIAL INTRADURAL performed by Jose Small MD at [facility] MAIN OR Social History Tobacco Use [...] risks discussed with patient. Plan discussed with NURSE ASSESSOR and attending. Anesthesia Screening documented in this [...] EDT documented in this encounter Care Teams Business Transformation Manager Relationship Specialty Start Date End Date Camacho Barrera DO [address] [place] [address] PCP - General Family Medicine 07/01/18 documented as of this encounter
--- OUTSIDE RECORDS SUMMARY | 2024-09-25 08:40 | XMS_ITS | Encounter Summary ---
Author Organization [facility] [place] [address] Care Team Providers Care Felt Hat Inspector And Packer Name Role Phone Camacho Barrera DO Primary Care Provider [phone] Encounter Details Date Type Department Care Team (Late st Contact Info) Description 07/31/2023 Ancillary Procedure Radiology Library at [facility] ([place] [address] Camacho Barrera DO [address] [place] [address] Social History Tobacco Use Types [...] CT Head (07/31/2023 12:00 AM EDT) Narrative RAD - 08/01/2023 9:30 AM EDT This exam is auto-finalizing. It's purpose is for storage only. Camacho Barrera DO [facility] FILM LIBRARY ORD ERABLES [place], [place] documented in this encounter Visit Diagnoses Not on filedocumented in this encounter Care Teams Felt Hat Inspector And Packer Relationship Specialty Start Date End Date Camacho Barrera DO [address] [place] [address] PCP - General Family Medicine 07/01/18 documented as of this encounter
--- OUTSIDE RECORDS SUMMARY | 2024-09-25 08:40 | XMS_ITS | Encounter Summary ---
Author Organization [facility] [place] [address] Care Team Providers Care Corking Machine Operator Name Role Phone Camacho Barrera DO Primary Care Provider [phone] Encounter Details Date Type Department Care Team [...] on filedocumented in this encounter Care Teams Corking Machine Operator Relationship Specialty Start Date End Date Camacho Barrera DO [address] [place], [place] [id number] PCP - General Family Medicine 07/01/18 documented as of this encounter
--- OUTSIDE RECORDS SUMMARY | 2024-09-25 08:40 | XMS_ITS | Encounter Summary ---
Author Organization [facility] [place] [address] Care Team Providers Care Physiatrist Name Role Phone Camacho Barrera DO Primary Care Provider [phone] Encounter Details Date Type Department Care Team (Late st Contact Info) Description 08/14/2023 12:10 AM EDT Ancillary Procedure Radiology Library at [facility] [place] [address] Camacho Barrera DO [address] [place] [address] Social History Tobacco Use Types [...] CT Spine (08/14/2023 12:10 AM EDT) Narrative [facility] - 08/15/2023 4:44 AM EDT This exam is auto-finalizing. It's purpose is for storage only. Camacho Barrera DO Jose Miguel FILM LIBRARY ORD ERABLES Performing Organization Address City/State/[facility] Co de Phone Number [place], [place] documented in this encounter Visit Diagnoses Not on filedocumented in this encounter Care Teams Physiatrist Relationship Specialty Start Date End Date Camacho Barrera DO [address] [place] [address] PCP - General Family Medicine 07/01/18 documented as of this encounter
--- OUTSIDE RECORDS SUMMARY | 2024-09-25 08:40 | XMS_ITS | Encounter Summary ---
Author Organization [facility] [place] [address] Care Team Providers Care Jboss Developer Name Role Phone Camacho Barrera DO Primary Care Provider [phone] Encounter Details Date Type Department Care Team (Late st Contact Info) Description 08/14/2023 12:05 AM EDT Ancillary Procedure Radiology Library [place] [address] Camacho Barrera DO [address] [place] [address] Social History Tobacco Use Types [...] & Pelvis (08/14/2023 12:05 AM EDT) Narrative RAD - 08/15/2023 4:38 AM EDT This exam is auto-finalizing. It's purpose is for storage only. Camacho Barrera DO [facility] [place]RARY [place]D ERABLES Performing Organization Address City/State/[facility] Co de Phone Number [place], [place] documented in this encounter Visit Diagnoses Not on filedocumented in this encounter Care Teams Jboss Developer Relationship Specialty Start Date End Date Camacho Barrera DO [address] [place] [address] PCP - General Family Medicine 07/01/18 documented as of this encounter
--- OUTSIDE RECORDS SUMMARY | 2024-09-25 08:40 | XMS_ITS | Encounter Summary ---
Author Organization [facility] [place] [address] Care Team Providers Care Net Programmer Analyst Name Role Phone Camacho Barrera DO Primary Care Provider [phone] Encounter Details Date Type Department Care Team [...] on filedocumented in this encounter Care Teams Net Programmer Analyst Relationship Specialty Start Date End Date Camacho Barrera DO [address] [place], [place] [id number] PCP - General Family Medicine 07/01/18 documented as of this encounter
--- OUTSIDE RECORDS SUMMARY | 2024-09-25 08:40 | XMS_ITS | Encounter Summary ---
Author Organization [facility] [place] [address] Care Team Providers Care Chaser Tar Name Role Phone Camacho Barrera DO Primary Care Provider [phone] Encounter Details Date Type Department Care Team [...] on filedocumented in this encounter Care Teams Chaser Tar Relationship Specialty Start Date End Date Camacho Barrera DO [address] [place], [place] [id number] PCP - General Family Medicine 07/01/18 documented as of this encounter
--- OUTSIDE RECORDS SUMMARY | 2024-09-25 08:40 | XMS_ITS | Encounter Summary ---
[place] [address] Care Team Providers Care Linen Attendant Name Role Phone Camacho Barrera DO Primary Care Provider [phone] Encounter Details Date Type Department Care Team (Latest Contact Info) Description 09/09/2023 11:00 AM EDT [place] [address] Milagros Parra, DRIVEWAY SEALER [facility] [place] [address] Acute ischemic stroke; Left carotid artery stenosis; Primary hypertension; Paroxysmal atrial fibrillation; Hyperlipidemia, unspecified hyperlipidemia type Social History Tobacco Use Types Packs/Day Years Used Date Smoking Tobacco: Never Smokeless Tobacco: Never Alcohol Use Standard Drinks/Week Comments Yes 14 (1 standard drink = 0.6 oz pu re alcohol) 2-3 drinks/night [facility] Inpatient Questions Answer Date Recorded Does [...] this encounter Progress Notes * Milagros Parra, DRIVEWAY SEALER - 09/09/2023 11:00 AM EDT Images from the original note were not included. Cerebrovascular Disease and Stroke Program Department of Neurology [place] [id number] t: [phone] / f: [phone] [employer] Improving Post-Acute Care Transitions after Stroke Camacho Flores is a 77 y.o. male with PMHx of AFIB on Xarelto (s/p ablation), HLD, HTN, CAD (s/p PCI in 2006, BRENDA distal LAD x2 / distal Lcx x2, ramus x1 at [facility]), brain abscess (s/p surgery and ABX treatment [...] was thromboembolism. We discussed with his outpatient market garden worker clinic who felt it was safe for [...] times a week.[facility] and he stated that he passed out while waiting in the waiting room. He was diagnosed with a UTI at this time. He does not check his blood pressure at home. No data to display 05/22/2022 12:20 PM Stroke:PROMIS-10 Xybmwr15-Kpsiddjw Health Score 34.9 Uivnch65-Nkpbdc Health Score 38.8 Health in general Fair [...] in wheelchair due to back pain Modified Luis Scale (MRS) 0: No symptoms [...] / distal Lcx x2, ramus x1 at [facility]), brain abscess (s/p surgery and ABXtreatment in [...] Milagros Parra APRN #[id number] Department [place] [address] documented in this encounter Plan of Treatment Not on file documented as of this encounter Visit Diagnoses Diagnosis Acute ischemic stroke Unspecified cerebral artery occlusion with cerebral infarction Left carotid artery stenosis Occlusion and stenosis of carotid artery without mention of cerebral infarction Primary hypertension Unspecified essential hypertension Paroxysmal atrial fibrillation Atrial fibrillation Hyperlipidemia, unspecified hyperlipidemia type documented in this encounter Care Teams Linen Attendant Relationship Specialty Start Date End Date Camacho Barrera DO [facility] [place] [address] [place] [address] PCP - General Family Medicine 07/01/18 documented as of this encounter
--- OUTSIDE RECORDS SUMMARY | 2024-09-25 08:40 | XMS_ITS | Encounter Summary ---
[place] [address] Care Team Providers Care Golf Cart Attendant Name Role Phone Camacho Barrera DO Primary Care Provider [phone] Reason for Referral * Consultation (Routine) - Closed Specialty Diagnoses / Procedures Referred By Mike johnson Referred To Contact Vascular Surgery Diagnoses Right-sided extracranial carotid artery stenosis ROUTINE , No studies - Right-sided extracranial carotid artery stenosis , BED SPRING MAKER / PA / Milagros Vail APRN [facility] [address] [facility] [address] [place] [address] Referral ID Status Reason Start Date Expiration Date V isits Requested Visits Authorized [id number] Closed Consult, Test & Treat 05/27/2023 05/26/2024 1 1 Encounter Details Date Type Department Care Team (Latest Contact Info) Description 05/27/2023 11:00 AM EDT [place] [address] Milagros Parra APRN [facility] [place] [address] Several punctate infarcts in the [...] this encounter Progress Notes * Milagros Parra, SIZER MACHINE - 05/27/2023 11:00 AM EDT Images from the original note were not included. Cerebrovascular Disease and Stroke Program Department of Neurology [place] [id number] t: [phone] / f: [phone] [employer] Improving Post-Acute Care Transitions after Stroke Camacho Flores is a 77 y.o. male with PMHx of AFIB on Xarelto (s/p ablation), HLD, HTN, CAD (s/p PCI in 2006, BRENDA distal LAD x2 / distal Lcx x2, ramus x1 at [facility]), brain abscess (s/p surgery and ABX treatment [...] was thromboembolism. We discussed with his outpatient dairy tester clinic who felt it was safe for [...] data to display 05/22/2022 12:20 PM Stroke:PROMIS-10 Tphozw19-Xdgrdbif Health Score 34.9 Jdyjaz95-Oxtptg Health Score 38.8 Health in general Fair [...] able to perform heel to kay Modified Bleckley Scale (MRS) 0: No symptoms at all [...] / distal Lcx x2, ramus x1 at [facility]), brain abscess (s/p surgery and ABXtreatment in [...] counseling as detailed above. Milagros Parra APRN #[id number] Department [place] [address] documented in this encounter Plan of Treatment Scheduled Referrals Name Type Priority Associated Diagnoses [...] fibrillation documented in this encounter Care Teams Golf Cart Attendant Relationship Specialty Start Date End Date Camacho Barrera DO [address] [address] PCP - General Family Medicine 07/01/18 documented as of this encounter
--- OUTSIDE RECORDS SUMMARY | 2024-09-25 08:40 | XMS_ITS | Encounter Summary ---
[place] [address] Care Team Providers Care Cube Machine Tender Name Role Phone Camacho Barrera DO Primary Care Provider [phone] Encounter Details Date Type Department Care Team (Late st Contact Info) Description 07/16/2023 Notes [place] [address] Katharine Gusman Social History Tobacco Use Types [...] patient to provide information regarding study protocol [id number], answer questions or concerns about study plan [...] on filedocumented in this encounter Care Teams Cube Machine Tender Relationship Specialty Start Date End Date Camacho Barrera DO [address] [place] [address] PCP - General Family Medicine 07/01/18 documented as of this encounter
--- OUTSIDE RECORDS SUMMARY | 2024-09-25 08:40 | XMS_ITS | Encounter Summary ---
[place] [address] Care Team Providers Care Removable Prosthodontist Name Role Phone Camacho Barrera DO Primary Care Provider [phone] Encounter Details Date Type Department Care Team (Late st Contact Info) Description 06/24/2023 [place] [address] Abigail Adams RN Pre-op testing; Carotid stenosis, asymptomatic, bilateral Social History Tobacco Use Types Packs/Day Years Used Date Smoking Tobacco: Never Smokeless Tobacco: Never Alcohol Use Standard Drinks/Week Comments Yes 14 (1 standard drink = 0.6 oz pu re alcohol) 2-3 drinks/night [facility] Inpatient Questions Answer Date Recorded Does Anyone [...] EDT) Prealbumin 22 20 - 40 mg/dL [facility] Comment: Prealbumin levels are generally lower in the pediatric population; adult concentrations are usually attained near puberty. Blood 07/16/2023 9:52 AM EDT 07/16/2023 10:02 AM EDT Narrative Resulting Agency Comment Spec In Lab Ramiro Chandra MD CHEMISTRY ORDERABLES [facility] [place] [address] * (ABNORMAL) Basic Metabolic Panel (non-fasting) (07/16/2023 9:52 AM EDT) Glucose 129 65 - 199 mg/dL [facility] Comment:Diabetes: >=200 mg/d L plus symptoms Blood Urea Nitrogen 18 10 - 20 mg/dL [facility] Creatinine 0.78(L) 0.80 - 1.50 mg/dL [facility] Sodium 141 135 - 145 mmol/L [facility] [...] questions. Chloride 103 98 - 107 mmol/L [facility] Carbon Dioxide 26 22 - 31 mmol/L [facility] Anion Gap 12 5 - 15 mmol/L [facility] Calcium 10.1 8.5 - 10.5 mg/dL [facility] Est Glomerular Filtration Rate 92 >=60 mL/min/1. 73 m?? [facility] [...] Chandra MD CHEMISTRY ORDERABLES Performing Organization Address [facility] Co de Phone Number [facility] [place] [address] * (ABNORMAL) Hemogram (07/16/2023 9:52 AM EDT) White Blood Cell 10.6(H) 4.0 - 9.5 x10(3)/mc L [facility] Red Blood Cell 4.50(L) 4.58 - 5.54 x10(6)/mc L [facility] Hemoglobin 14.5 13.7 - 16.5 g/dL [facility] Hematocrit 43.6 40.5 - 48.5 % [facility] Mean Cell Volume 96.9(H) 82.9 - 93.1 fL [facility] Mean Cell Hemoglobin 32.2(H) 27.5 - 32.1 pg [facility] Mean Cell Hemoglobin Concentration 33.3 32.0 - 35.7 g/dL [facility] Platelet 229 145 - 357 x10(3)/mc L [facility] RDW Standard Deviation 46.9(H) 36.0 - 45.0 fL [facility] RDW coefficient of variation 13.2 11.4 - 13.8 % [facility] Mean Platelet Volume 10.4 7.6 - 12.9 fL [facility] NRBC% auto 0.0 % [facility] NRBC Absolute 0.000 0.000 - 0.000 x10(3)/mc L [facility] Blood 07/16/2023 9:52 AM EDT 07/16/2023 10:02 AM EDT Narrative Resulting Agency Comment Spec In Lab Ramiro Chandra MD HEMATOLOGY ORDERABLE S Performing Organization Address [facility] Co de Phone Number [facility] [place] [address] documented in this encounter Visit Diagnoses Diagnosis Pre-op testing Preoperative examination, unspecified Carotid stenosis, asymptomatic, bilateral documented in this encounter Care Teams Removable Prosthodontist Relationship Specialty Start Date End Date Camacho Barrera [place] [place] [address] PCP - General Family Medicine 07/01/18 documented as of this encounter
--- OUTSIDE RECORDS SUMMARY | 2024-09-25 08:40 | XMS_ITS | Encounter Summary ---
Author Organization [facility] [place] [address] Care Team Providers Care Broadcast Systems Engineer Name Role Phone Camacho Barrera DO Primary Care Provider [phone] Encounter Details Date Type Department Care Team [...] filedocumented in this encounter Care Teams Broadcast Systems Engineer Relationship Specialty Start Date End Date Camacho Barrera DO [address] [place], [place] [id number] PCP - General Family Medicine 07/01/18 documented as of this encounter
--- OUTSIDE RECORDS SUMMARY | 2024-09-25 08:40 | XMS_ITS | Encounter Summary ---
[place] [address] Care Team Providers Care Conventions Reservationist Name Role Phone Camacho Barrera DO Primary Care Provider [phone] Reason for Referral * Diagnostic Test (Routine) - Closed Specialty Diagnoses / Procedures Referred By Mike johnson Referred To Contact Diagnoses Carotid stenosis, asymptomatic, bilateral Procedures Carotid Duplex, Bilateral Brian Fagan APRN [facility] [place] [address] [facility] [address] [place] [address] Referral ID Status Reason Start Date Expiration Date V isits Requested Visits Authorized [id number] Closed Specialty Service Requested 08/20/2023 08/19/2024 1 1 Encounter Details Date Type Department Care Team (Late st Contact Info) Description 08/20/2023 Orders [place] [address] Swapna Keller, [employer] Carotid stenosis, asymptomatic, bilateral Social History Tobacco Use Types Packs/Day Years Used Date Smoking Tobacco: Never Smokeless Tobacco: Never Alcohol Use Standard Drinks/Week Comments Yes 14 (1 standard drink = 0.6 oz pu re alcohol) 2-3 drinks/night [facility] Inpatient Questions Answer Date Recorded Does Anyone [...] Text Report Department: Vascular Surgery Lab Patient: [id number] (CAMACHO FLORES) CPT: 04070 Referring Physician: BRIAN FAGAN ?? Phone: Indications: [...] bilateral documented in this encounter Care Teams Conventions Reservationist Relationship Specialty Start Date End Date Camacho Barrera DO [address] [place] [address] PCP - General Family Medicine 07/01/18 documented as of this encounter
--- OUTSIDE RECORDS SUMMARY | 2024-09-25 08:40 | XMS_ITS | Encounter Summary ---
Author Organization [facility] [place] [address] Care Team Providers Care General Dentist Name Role Phone Mirna Barrera DO Primary Care Provider [phone] Reason for Referral * Diagnostic Test (Routine) - Closed Specialty Diagnoses / Procedures Referred By Contrachel t Referred To Contact Diagnoses Left carotid artery stenosis Procedures Carotid Duplex, Unilateral de Edwardo Bowling MD [facility] [place] [address] [facility] [place] [address] [place] [address] Referral ID Status Reason Start Date Expiration Date V isits Requested Visits Authorized [id number] Closed Specialty Service Requested 07/17/2023 07/16/2024 1 1 * Diagnostic Test (Routine) - Closed Specialty Diagnoses / Procedures Referred By Mike t Referred To Contact Radiology Diagnoses Hematuria, unspecified type Procedures CT Abdomen & Pelvis wo Contrast Akila Herman MD [facility] [place] [address] [facility] [place] [address] Referral ID Status Reason Start Date Expiration Date V isits Requested Visits Authorized [id number] Closed Specialty Service Requested 07/16/2023 01/16/2025 1 1 Reason for Visit * Auth/Cert (Routine) Specialty Diagnoses / Procedures Referred By Mike t Referred To Contact Diagnoses Occlusion and stenosis of bilateral carotid arteries Encounter for other preprocedural examination Bilateral Carotid Stenosis Procedures PRO THROMBOENDARTECTMY NECK, NECK INCIS @ENDARTERECTOMY, CAROTID, VERTEBRAL,SUBCLAVIAN W\WO PATCH GRAFT (WRVU 21.16) Lorena Chandra MD [facility] [place] [address] [facility] Referral ID Status Reason Start Date Expiration Date Visits Re quested Visits Authorized [id number] 1 1 Encounter Details Date Type Department Care Team (Latest Contact Info) Description 07/16/2023 9:39 AM EDT - 07/17/2023 12:45 PM EDT Hospital [place] [address] Lorena Chandra MD [facility] [place] [address] Pre-op testing; Carotid stenosis, asymptomatic, bilateral; Cerebrovascular [...] went to the OR after presenting to [facility] with right hand weakness for a left [...] 2:00 PM Gonzales Torres MD Cardiology at [facility] Arrive at: [facility] [address] [phone] 09/09/2023 11:00 AM Milagros Parra APRN Neurology at [facility] Arrive at: [facility] [phone] Future Orders Complete By Expires Carotid Duplex, Unilateral [VAS2 Custom] 08/14/2023 (Approximate) 02/13/2024 Process Instructions: There is no in-house vascular agricultural labor camp manager available on weeknights (5pm-8am), weekends, or holidays. IF THIS IS A REQUEST FOR AN EMERGENT STUDY DURING THOSE HOURS, please have the senior provider responsible for the patient page the Vascular Surgery Fellow/Senior Resident director of content marketing to discuss options. Scheduling Instructions: Questions: Laterality: Left Indication for study/signs & symptoms: Carotid Stenosis Question to be answered: [facility] CEA Preferred location?: [facility] Clinics CT Abdomen & Pelvis wo Contrast [[id number] Custom] 08/16/2023 (Approximate) 02/15/2024 Process Instructions: 1.Choose [...] for radiologist: Where will study be performed?: [facility] Radiology Stat read required?: Does patient require sedation?: GA rationale: Date of injury if applicable: Urinalysis with reflex Culture [[id number] Custom] 08/16/2023 (Approximate) 02/15/2024 Process Instructions: A urine culture will be added on by the lab if WBCs greater than 10 and/or moderate or large leukocytes and/or positive nitrites are found. Scheduling Instructions: Comments: Questions: Preferred urine source for collection: Clean Catch Urine US Retroperitoneal Complete [[id number] Custom] 08/16/2023 (Approximate) 02/15/2024 Process Instructions: This exam includes imaging of both kidneys, ureters & bladder. Scheduling Instructions: Questions: Where will study be performed?: [facility] Radiology Portable exam?: Ultrasound scheduling [...] these medications, please contact Vascular Surgery at [phone]. For issues on weeknights after 5pm and weekends please call [phone] and ask for the Vascular Fellow oncall. [...] these medications, please contact Vascular Surgery at [phone]. For issues on weeknights after 5pm and weekends please call [phone] and ask for the Vascular Fellow onctita. For questions regarding these medications, please contact Vascular Surgery at [phone]. For issues on weeknights after 5pm and weekends please call [phone] and ask for the Vascular Fellow onctita. [...] these medications, please contact Vascular Surgery at [phone]. For issues on weeknights after 5pm and weekends please call [phone] and ask for the Vascular Fellow laquita. documented in this encounter Medications at Time of Discharge Medication Sig Dispensed Refills Start Date End Date clotrimazole (LOTRIMIN) 1 % Cream Apply topically as needed. Laurantis PharmaTouch Verio test strips Strip USE TO CHECK [...] as of this encounter Progress Notes * aMlena Marin RN - 07/17/2023 12:45 PM EDT [facility] Short Stay Unit Discharge Note [...] Andujar MD - 07/16/2023 8:48 PM EDT [facility] Department of Vascular Surgery Inpatient Post Op Check Note Patient Name: Mirna Flores Patient : 1945 Patient Patient Location: [address] Attending Surgeon: LORENA CHANDRA ID: iMrna Flores is a 77 y.o. male who [...] Admission (Current) from 07/16/2023 in PACU at [facility] OfficeVisit from 06/20/2023 in Vascular Surgery [...] QTC Calculated (Bezet) 469 ms Calculated P [place] 29 degrees Calculated R [place] 47 degrees Calculated T [place] 105 degrees INTERPRETATION Normal sinus rhythm Low voltage QRS Borderline ECG When compared with ECG of 20-MAY-2023 12:46, Premature atrial complexes are no longer Present Confirmed by MD Jose, Marcellus ([id number]) on 07/16/2023 4:38:58 PM Carotid Duplex, Unilateral Result Value Ref Range VB Text Report Department: Vascular Surgery Lab Patient: [id number] (MIRNA FLORES) CPT: 56018 Referring Physician: LORENA CHANDRA Indications: Intra-op left [...] MD, PGY-1 07/16/2023 Vascular Surgery Service Pager [phone] * Michaela Stuart RN - 07/16/2023 8:29 PM EDT 1899: Report received from MORIAH Sebastian; care assumed. Pt is A&Ox4, VSS on RA. [facility] resident aware of red urine output, no [...] Other Anticoagulation: name: Xarelto, indication: afib, duration: termite control service representative Antiplatelet: name(s): ASA , duration: termite control service representative Patient Active Problem List Diagnosis Acute ischemic stroke Stroke Premature ventricular beats Overview Note: Zio (December 2018): 8.6% burden, 2 morphologies prevalent Zio (August 2020): 11.8% burden, 2 morphologies prevalent Status post ablation of atrial fibrillation ASCVD (arteriosclerotic cardiovascular disease) Overview Note: PCI in 2006 at [facility]: stents to LAD x2, LCx x2, [...] 2.25) performed by Fred Maki MD at [facility] MAIN OR PRO STEREO BX/ASPIR/EXCIS, INTRACRANIAL LESN Right 01/27/2015 @STEREOTACTIC BX,ASP, OR EXC.-INTRACRANIAL LESION, W/SCAN performed by Jose Small MD at [facility] MAIN OR PRO STEREOTACTIC CPTR ASSTD PX CRANIAL, INTRADURAL Right 01/27/2015 STEREOTACTIC COMPUTER-ASSTD NAVIGATIONAL CRANIAL INTRADURAL performed by Jose Small MD at [facility] MAIN OR Functional Status: Lives [...] History Narrative 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 Social Determinants of Health Financial Resource [...] Duplex 05/21/23: Department: Vascular Surgery Lab Patient: [id number] (MIRNA FLORES) CPT: 97065 Referring Physician: NIKHIL BARNETT Indications: Left hemispheric [...] Admission order reviewed. 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: [facility] Payor: [facility] [employer] / Plan: [facility] / Product Type: *No Product type* / Secondary Insurance: N/A ; Prescription Coverage: Preferred Pharmacy: [facility] - [place], [place] - [address] [facility] [address] [facility] [address] [facility] - [place], [place] - [address] [facility] [address] [facility] [address] Advance Care Planning: Attempt Cardiopulmonary Resuscitation - Inpatient Received - Patients address: [address] [facility] [address] Social & Family Supports: Extended Emergency Contact Information Primary Emergency Contact: Kisha Flores Address: [address] [place] [address] [facility] Relation: Spouse Secondary Emergency Contact: Michelle Giron [facility] Relation: Child Transportation Anticipated: private car Assessment: Patient with no apparent RNCM/SW needs at this time. No housing, transportation, insurance, resources concerns identified at this time. Supports in place to achieve a safe post-hospital transition. No identified barriers to accessing necessary care and/or follow-up after discharge. Plan: Patient to d/c to home via private car when medically ready. Registered Nurse Formulation Scientist / Automotive Service Professional will continue to follow patient???s progress and remain available if situation changes for coordination of care, psychosocial support and/or discharge planning. Office of Care Management Domi Prabhakar RN, BSN Case Management Work [phone] * Consult Note - Akila Herman MD [...] 2.25) performed by Fred Maki MD at [facility] MAIN OR PRO STEREO BX/ASPIR/EXCIS, INTRACRANIAL LESN Right 01/27/2015 @STEREOTACTIC BX,ASP, OR EXC.-INTRACRANIAL LESION, W/SCAN performed by Jose Small MD at [facility] MAIN OR PRO STEREOTACTIC CPTR ASSTD PX CRANIAL, INTRADURAL Right 01/27/2015 STEREOTACTIC COMPUTER-ASSTD NAVIGATIONAL CRANIAL INTRADURAL performed by Jose Small MD at [facility] MAIN OR Family History: Family [...] History Narrative 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 Social Determinants of Health Financial Resource [...] Operative Note Patient Name: Mirna Flores : [id number] MR#: [id number] Case Date: 07/16/2023 Surgeon: Surgeon(s) and Role: [...] carotid artery in standard fashion. Using a [place] elevator, endarterectomy of the common carotid and [...] stenosis, asymptomatic, bilateral Thromboendartectmy Neck, Neck Incis ([id number]) 07/16/2023 12:34 PM EDT Pre-op testing Carotid [...] who have questions, please contact the health clinical manager home care that requested your imaging first. ? David Madera, Staff Physician Electronically Signed Final Report ?? 09/09/2023 01:50 pm Narrative 09/09/2023 1:50 PM EDT Renal ? (Signed Final 09/09/2023 01:50 pm) PATIENT INFO: ID #: ? [id number] ?: ??[birth year] (77 yrs)(M) Name: ? MIRNA FLORES ? Visit Date: 09/09/2023 12:24 pm PERFORMED BY: Attending: ?Santy HOOD, David John Resident: ? Yuko HOOD, Marvin Tomas Performed By: ? Sera Kiki VAZQUEZ Referred By: ?OLRENA CHANDRA Location: ? [place] SERVICE(S) PROVIDED: URETRO - Retroperitoneal Complete - [id number] ? [id number] INDICATIONS: gross hematuria COMPARISON: CT: Abdomen/Pelvis 09/09/2023 [...] 09/09/2023 01:50 pm) PATIENT INFO: ID #: [id number] : [birth year] (77 yrs)(M) Name: MIRNA FLORES Visit Date: 09/09/2023 12:24 pm PERFORMED BY: Attending: David Madera MD Resident: Marvin Huntley MD Performed By: Kiki Zamora RDMS Referred By: LORENA CHANDRA Location: [place] SERVICE(S) PROVIDED: URETRO - Retroperitoneal Complete - [id number] INDICATIONS: gross hematuria COMPARISON: CT: Abdomen/Pelvis 09/09/2023 [...] who have questions, please contact the health clinical manager home care that requested your imaging first. David Madera, Staff Physician Electronically Signed Final Report 09/09/2023 01:50 pm Lorena Chandra MD IMG US GEN ORDERABLE S * (ABNORMAL) Urinalysis with reflex Culture (09/09/2023 10:16 AM EDT) Glucose, Urine Dipstick Negative Negative mg/dL [facility] Protein, Urine Dipstick Trace(A) Negative mg/dL [facility] Bilirubin, Urine Dipstick Negative Negative mg/dL [facility] Comment: Clinical correlation required for positive Urine Bilirubin results as false positive may occur with some drugs and drug related products. If a false positive is suspected a serum total bilirubin should be considered if clinically indicated. Urobilinogen, Urine Dipstick Normal Normal mg/dL [facility] pH, Urn (dipstick) 5.0 5.0 - 8.0 [facility] Blood, Urine Dipstick Trace(A) Negative mg/dL [facility] Ketone, Urine Dipstick Trace(A) Negative mg/dL [facility] Nitrite, Urine Dipstick Negative Negative [facility] Leukocytes, Urine Dipstick Small(A) Negative mcL [facility] Appearance, Urine Dipstick Cloudy(A) Clear [facility] Specific Vendor Urine Automated 1.027 1.005 - 1.030 [facility] Color, Urine Dipstick Yellow Yellow [facility] Reflex to Culture Yes [facility] Clean Catch Urine 09/09/2023 10:16 AM EDT 09/09/2023 10:19 AM EDT Narrative Resulting Agency Comment Spec In Lab Lorena Chandra MD URINE ORDERABLES Performing Organization Address [facility]/State/[facility] Co de Phone Number [facility] [place] [address] * CT Abdomen & Pelvis wo Contrast [...] who have questions please contact the health clinical manager home care that requested your imaging first. ? [...] patients who have questions please contactthe health clinical manager home care that requested your imaging first. Lorena Chandra MD IMG CT ORDERABLES * Carotid Duplex, Unilateral (08/15/2023 1:01 PM EDT) VB Text Report Department: Vascular Surgery Lab Patient: [id number] (MIRNA FLORES) CPT: 63828 Referring Physician: LORENA CHANDRA ?? Indications: S/P [...] EDT) Urine Culture 1,000-9,000 cfu/ml Insignificant growth [facility] Indwelling Catheter Urine 07/16/2023 9:57 PM EDT 07/17/2023 1:49 AM EDT Narrative Resulting Agency Comment Spec In Lab Crispin Andujar MD MICROBIOLOGY - GEN ERAL ORDERABLES [facility] [place] [address] * (ABNORMAL) Urinalysis Microscopic Exam (07/16/2023 9:57 PM EDT) RBC, Urine >100(H) 0 - 3 /HPF [facility] Comment:Interpret with cauti on, manual microscopic results are from an unspun specimen. WBC, Urine >100(H) 0 - 3 /HPF [facility] Comment:Interpret with cauti on, manual microscopic results are from an unspun specimen. Bacteria, Urine Occasiona l(A) None /HPF [facility] Comment:Interpret with cauti on, manual microscopic results are from an unspun specimen. Indwelling Catheter Urine 07/16/2023 9:57 PM EDT 07/16/2023 10:24 PM EDT Narrative Resulting Agency Comment Spec In Lab Crispin Andujar MD URINE ORDERABLES Performing Organization Address [facility] Co de Phone Number [facility] [place] [address] * Urine Hold (07/16/2023 9:57 PM EDT) Hold, Urine Sample in lab. [facility] Urine Urine / Unknown 07/16/2023 9 :57 PM EDT 07/16/2023 10:24 PM EDT Crispin Andujar MD URINE ORDERABLES Performing Organization Address City/[facility] Co de Phone Number [facility] [place] [address] * (ABNORMAL) Urinalysis with reflex Culture (07/16/2023 9:57 PM EDT) Glucose, Urine Dipstick See Note Negative [facility] Comment: Unable to perform chemistry testing due to interfering substances, grossly bloody. Protein, Urine Dipstick See Note Negative [facility] Comment: Unable to perform chemistry testing due to interfering substances, grossly bloody. Bilirubin, Urine Dipstick See Note Negative [facility] Comment: Unable to perform chemistry testing due to interfering substances, grossly bloody. Clinical correlation required for positive Urine Bilirubin results as false positive may occur with some drugs and drug related products. If a false positive is suspected a serum total bilirubin should be considered if clinically indicated. Urobilinogen, Urine Dipstick See Note Normal [facility] Comment: Unable to perform chemistry testing due to interfering substances, grossly bloody. pH, Urn (dipstick) See Note 5.0 - 8.0 [facility] Comment: Unable to perform chemistry testing due to interfering substances, grossly bloody. Blood, Urine Dipstick See Note Negative [facility] Comment: Unable to perform chemistry testing due to interfering substances, grossly bloody. Ketone, Urine Dipstick See Note Negative [facility] Comment: Unable to perform chemistry testing due to interfering substances, grossly bloody. Nitrite, Urine Dipstick See Note Negative [facility] Comment: Unable to perform chemistry testing due to interfering substances, grossly bloody. Leukocytes, Urine Dipstick See Note Negative [facility] Comment: Unable to perform chemistry testing due to interfering substances, grossly bloody. Appearance, Urine Dipstick Turbid(A) Clear [facility] Comment: Unable to perform chemistry testing due to interfering substances, grossly bloody. Specific Vendor Urine Automated See Note 1.005 - 1.030 [facility] Comment: Unable to perform chemistry testing due to interfering substances, grossly bloody. Color, Urine Dipstick Red(A) [facility] Comment: Unable to perform chemistry testing due to interfering substances, grossly bloody. Reflex to Culture Yes [facility] Comment: Unable to perform chemistry testing due to interfering substances, grossly bloody. Indwelling Catheter Urine 07/16/2023 9:57 PM EDT 07/16/2023 10:24 PM EDT Narrative Resulting Agency Comment Spec In Lab Lorena Chandra MD URINE ORDERABLES Performing Organization Address [facility] Co de Phone Number [facility] [place] [address] * Carotid Duplex, Unilateral (07/16/2023 2:41 PM EDT) VB Text Report Department: Vascular Surgery Lab Patient: [id number] (MIRNA FLORES) CPT: 71474 Referring Physician: LORENA CHANDRA ?? Indications: ??Intra-op [...] Cell 10.6(H) 4.0 - 9.5 x10(3)/mc L [facility] Red Blood Cell 4.50(L) 4.58 - 5.54 x10(6)/mc L [facility] Hemoglobin 14.5 13.7 - 16.5 g/dL [facility] Hematocrit 43.6 40.5 - 48.5 % [facility] Mean Cell Volume 96.9(H) 82.9 - 93.1 fL [facility] Mean Cell Hemoglobin 32.2(H) 27.5 - 32.1 pg [facility] Mean Cell Hemoglobin Concentration 33.3 32.0 - 35.7 g/dL [facility] Platelet 229 145 - 357 x10(3)/mc L [facility] RDW Standard Deviation 46.9(H) 36.0 - 45.0 fL [facility] RDW coefficient of variation 13.2 11.4 - 13.8 % [facility] Mean Platelet Volume 10.4 7.6 - 12.9 fL [facility] NRBC% auto 0.0 % [facility] NRBC Absolute 0.000 0.000 - 0.000 x10(3)/ L [facility] Blood 07/16/2023 9:52 AM EDT 07/16/2023 10:02 AM EDT Narrative Resulting Agency Comment Spec In Lab Lorena Chandra MD HEMATOLOGY ORDERABLE S [facility] [place] [address] * (ABNORMAL) Basic Metabolic Panel (non-fasting) (07/16/2023 9:52 AM EDT) Glucose 129 65 - 199 mg/dL [facility] Comment:Diabetes: >=200 mg/d L plus symptoms Blood Urea Nitrogen 18 10 - 20 mg/dL [facility] Creatinine 0.78(L) 0.80 - 1.50 mg/dL [facility] Sodium 141 135 - 145 mmol/L [facility] Potassium 4.0 3.5 - 5.0 mmol/L [facility] Comment: Please note: ??Patients with WBC >100,000 may have falsely elevated Potassium levels. ??For accurate Potassium quantification in these patients send serum separator tube (gold top) for subsequent determinations. ??Contact the Clinical Chemistry Laboratory if there are any questions. Chloride 103 98 - 107 mmol/L [facility] Carbon Dioxide 26 22 - 31 mmol/L [facility] Anion Gap 12 5 - 15 mmol/L [facility] Calcium 10.1 8.5 - 10.5 mg/dL [facility] Est Glomerular Filtration Rate 92 >=60 mL/min/1. 73 m?? [facility] Comment: This patient's estimated GFR [...] Chandra MD CHEMISTRY ORDERABLES Performing Organization Address City/[facility] Co de Phone Number [facility] [place] [address] * Prealbumin (07/16/2023 9:52 AM EDT) Prealbumin 22 20 - 40 mg/dL [facility] Comment: Prealbumin levels are generally lower in the pediatric population; adult concentrations are usually attained near puberty. Blood 07/16/2023 9:52 AM EDT 07/16/2023 10:02 AM EDT Narrative Resulting Agency Comment Spec In Lab Lorena Chandra MD CHEMISTRY ORDERABLES Performing Organization Address [facility]/ZIP Co de Phone Number [facility] [place] [address] * SCAN DOC: IMPLANTABLE DEVICES (07/16/2023 12:00 [...] Tash 07/17/23 at 0900, Until Discontinued, Routine Given 07/17/2023 8:23 AM EDT 81 mg clopidogreL (Plavix) tablet 75 mg 75 mg, Oral, DAILY, First dose on Tash 07/17/23 at 0900, Until Discontinued, Routine Given 07/17/2023 [...] at 2143, Until Fri07/17/23 at 1518, Nausea, Vomiting, If multiple antiemetics [...] hours documented in this encounter Care Teams General Dentist Relationship Specialty Start Date End Date Mirna Barrera DO [facility] [place] [address] PCP - General Family Medicine 07/01/18 documented as of this encounter
--- OUTSIDE RECORDS SUMMARY | 2024-09-25 08:40 | XMS_ITS | Encounter Summary ---
[place] [address] Care Team Providers Care Rn Intake Name Role Phone Camacho Barrera DO Primary Care Provider [phone] Reason for Referral * Diagnostic Test (Routine) - Closed Specialty Diagnoses / Procedures Referred By Contac t Referred To Contact Radiology Diagnoses Hematuria, unspecified type Procedures CT Abdomen & Pelvis wo Contrast Akila Herman MD [facility] [place] [address] [facility] [place] [address] Referral ID Status Reason Start Date Expiration Date V isits Requested Visits Authorized [id number] Closed Specialty Service Requested 07/16/2023 01/16/2025 1 1 Reason for Visit * Diagnostic Test (Routine) - Closed Specialty Diagnoses / Procedures Referred By Contac t Referred To Contact Radiology Diagnoses Hematuria, unspecified type Procedures CT Abdomen & Pelvis wo Contrast Akila Herman MD [facility] [place] [address] [facility] [place] [address] Referral ID Status Reason Start Date Expiration Date V isits Requested Visits Authorized [id number] Closed Specialty Service Requested 07/16/2023 01/16/2025 1 1 Encounter Details Date Type Department Care Team (Latest Contact Info) Description 09/09/2023 9:46 AM EDT - 09/09/2023 11:43 AM EDT Hospital [place] [address] Ramiro Chandra MD [facility] [place] [place] [address] Hematuria, unspecified type Discharge Disposition: Home Social [...] 1 % Cream Apply topically as needed. [employer] Verio test strips Strip USE TO CHECK [...] by mouth daily. 08/04/2023 02/11/2024 HYDROcodone-acetaminoph en ([place]) 5-325 mg tablet Take by mouth every [...] who have questions please contact the health care advocate that requested your imaging first. ? Narrative [...] patients who have questions please contactthe health care advocate that requested your imaging first. Ramiro Chandra MD IMG CT ORDERABLES documented in this encounter Visit Diagnoses Diagnosis Hematuria, unspecified type documented in this encounter Care Teams Rn Intake Relationship Specialty Start Date End Date Camacho Barrera DO [address] [place] [address] PCP - General Family Medicine 07/01/18 documented as of this encounter
--- OUTSIDE RECORDS SUMMARY | 2024-09-25 08:41 | XMS_ITS | Encounter Summary ---
Author Organization [facility] [place] [address] Care Team Providers Care Concert Singer Name Role Phone Camacho aBrrera DO Primary Care Provider [phone] Encounter Details Date Type Department Care Team (Late st Contact Info) Description 01/15/2023 Interpretation Only [address] [phone] Ip, Jesus Blake MD [address] [place] [address] [id number] Social History Tobacco Use Types Packs/Day Years [...] (01/15/2023 7:09 AM EST) PT CLASS E DH RAD ADMITDT [id number] RAD PT RAD INFO [id number]^Ip^Herb ert^S.^^M.D. RAD EXAM DESC XCXR2^XR CHEST 2 [...] who have questions please contact the health career placement services counselor that requested your imaging first. ? Narrative [...] patients who have questions please contactthe health career placement services counselor that requested your imaging first. Jesus Patino MD IMG DX ORDERABLES documented in this encounter Visit Diagnoses Not on filedocumented in this encounter Care Teams Concert Singer Relationship Specialty Start Date End Date Camacho Barrera DO [address] [place] [address] PCP - General Family Medicine 07/01/18 documented as of this encounter
--- OUTSIDE RECORDS SUMMARY | 2024-09-25 08:41 | XMS_ITS | Encounter Summary ---
Author Organization [facility] [place] [address] Care Team Providers Care Rotary Drill Operator Name Role Phone Camacho Barrera DO Primary Care Provider [phone] Encounter Details Date Type Department Care Team (Late st Contact Info) Description 02/05/2023 Telephone Cardiology at [address] [place] [address] Gonzales Torres MD [facility] [place] [address] Social History Tobacco Use Types Packs/Day Years [...] recently performed Zio is available to review? bAby Edward documented in this encounter Plan of Treatment Not on file documented as of this encounter Visit Diagnoses Not on filedocumented in this encounter Care Teams Rotary Drill Operator Relationship Specialty Start Date End Date Camacho Barrera DO [address] [place] [address] PCP - General Family Medicine 07/01/18 documented as of this encounter
--- OUTSIDE RECORDS SUMMARY | 2024-09-25 08:41 | XMS_ITS | Encounter Summary ---
Author Organization [facility] [place] [address] Care Team Providers Care Chro Name Role Phone Camacho Barrera DO Primary Care Provider [phone] Encounter Details Date Type Department Care Team (Late st Contact Info) Description 04/22/2022 Ancillary Procedure Radiology Library at [facility] [place] [address] Camacho Barrera DO [address] [place] [address] Social History Tobacco Use Types [...] MR Spine (04/22/2022 12:00 AM EDT) Narrative [facility] - 05/10/2022 4:10 PM EDT This exam is auto-finalizing. It's purpose is for storage only. Camacho Barrera DO IM FILM LIBRARY ORD ERABLES [place], [place] documented in this encounter Visit Diagnoses Not on filedocumented in this encounter Care Teams Chro Relationship Specialty Start Date End Date Camacho Barrera DO [address] [place] [address] PCP - General Family Medicine 07/01/18 documented as of this encounter
--- OUTSIDE RECORDS SUMMARY | 2024-09-25 08:41 | XMS_ITS | Encounter Summary ---
[place] [address] Care Team Providers Care Fish Skinning Machine Feeder Name Role Phone Camacho Barrera DO Primary Care Provider [phone] Reason for Visit * Reason Onset Date Comments Medication Refill 01/02/2023 Encounter Details Date Type Department Care Team (Late st Contact Info) Description 01/02/2023 Refill Cardiology at [address] [address] Gonzales Torres MD [facility] [place] [address] Medication Refill Social History Tobacco Use Types [...] type documented in this encounter Care Teams Fish Skinning Machine Feeder Relationship Specialty Start Date End Date Camacho Barrera DO [address] [place] [address] PCP - General Family Medicine 07/01/18 documented as of this encounter
--- OUTSIDE RECORDS SUMMARY | 2024-09-25 08:41 | XMS_ITS | Encounter Summary ---
[place] [address] Care Team Providers Care Host/Hostess Restaurant Name Role Phone Camacho Barrera DO Primary Care Provider [phone] Encounter Details Date Type Department Care Team (Late st Contact Info) Description 05/07/2023 External [place] [address] Social History Tobacco Use Types Packs/Day Years [...] on filedocumented in this encounter Care Teams Host/Hostess Restaurant Relationship Specialty Start Date End Date Camacho Barrera DO [address] [place] [address] PCP - General Family Medicine 07/01/18 documented as of this encounter
--- OUTSIDE RECORDS SUMMARY | 2024-09-25 08:41 | XMS_ITS | Encounter Summary ---
Author Organization [facility] [place] [address] Care Team Providers Care Crab Meat Processor Name Role Phone Camacho Barrera DO Primary Care Provider [phone] Reason for Visit * Reason Onset Date Comments Medication Refill 02/10/2023 Encounter Details Date Type Department Care Team (Late st Contact Info) Description 02/10/2023 Refill Cardiology at [address] [address] Gonzales Torres MD [facility] [place] [address] Medication Refill Social History Tobacco Use Types [...] fibrillation documented in this encounter Care Teams Crab Meat Processor Relationship Specialty Start Date End Date Camacho Barrera DO [address] [place] [address] PCP - General Family Medicine 07/01/18 documented as of this encounter
--- OUTSIDE RECORDS SUMMARY | 2024-09-25 08:41 | XMS_ITS | Encounter Summary ---
Author Organization [facility]ly [facility] [place] [address] Care Team Providers Care Customer Experience Intern Name Role Phone Camacho Barrera DO Primary Care Provider [phone] Reason for Visit * Auth/Cert Specialty Diagnoses / Procedures Referred By Contac t Referred To Contact Diagnoses Other persistent atrial fibrillation atrial fibrillation Procedures PRO CARDIOVERSION ELECTIVE ARRHYTHMIA EXTERNAL CARDIOVERSION-ELECTIVE (WRVU 2.25) Fred Maki MD [facility] [place] [address] [facility] Referral ID Status Reason Start Date Expiration Date Visits Re quested Visits Authorized [id number] 1 1 Encounter Details Date Type Department Care Team (Latest Contact Info) Description 08/28/2022 10:17 AM EDT - 08/28/2022 12:32 PM EDT Hospital En[place] [address] Fred Maki MD [facility] [place] [address] Persistent atrial fibrillation Discharge Disposition: Home Social [...] the adhesive pads were placed, call the nut culler cold roll packer sheet iron at . We will schedule a follow-up appointment with the nut culler here, or you will be scheduled to [...] the adhesive pads were placed, call the nut culler cold roll packer sheet iron at . We will schedule a follow-up appointment with the nut culler here, or you will be scheduled to see your local doctor soon. September 11, 2022 9am at [facility] with Dr. Torres for follow upafter [...] from the original note were not included. [facility] [place] Patient Name: Camacho Flores : 1945 MR#: [id number] Case Date: 08/28/2022 Publishing Director: Fred Maki MD, PhD Referring Provider: Gonzales [...] resident or fellow. Fred Maki MD, PhD, [facility] Cardiac Electrophysiology 08/28/2022 11:51 AM documented in this encounter Plan of Treatment Not on file documented as of this encounter Procedures Procedure Name Priority Date/Time Associated Diagnosis Comments EKG 12-LEAD STAT 08/28/2022 12:09 PM EDT Persistent atrial fibrillation Cardioversion Elective Arrhythmia External (34504) 08/28/2022 11:20 AM EDT Persistent atrial fibrillation [...] (Bezet) 477 ms MUSE SYSTEM Calculated P [place] 77 degrees MUSE SYSTEM Calculated R [place] 27 degrees MUSE SYSTEM Calculated T [place] 114 degrees MUSE SYSTEM INTERPRETATION Normal sinus rhythm Nonspecific T wave abnormality Prolonged QTc Abnormal ECG When compared with ECG of 28-AUG-2022 09:14, (unconfirmed) Sinus rhythm has replaced Atrial flutter Vent. rate has decreased BY ??42 BPM T wave inversion no longer evident in Inferior leads Confirmed by MD Mckinney Danette ([id number]) on 08/28/2022 7:59:47 PM MUSE SYSTEM 08/28/2022 12:0 9 PM EDT 08/28/2022 7:59 PM EDT Harriett Badillo APRN ECG ORDERABLES [...] CRNA) documented in this encounter Care Teams Customer Experience Intern Relationship Specialty Start Date End Date Camacho Barrera DO [address] [place] [address] PCP - General Family Medicine 07/01/18 documented as of this encounter
--- OUTSIDE RECORDS SUMMARY | 2024-09-25 08:41 | XMS_ITS | Encounter Summary ---
[place] [address] Care Team Providers Care Manager Special Events Name Role Phone Camahco Barrera DO Primary Care Provider [phone] Reason for Referral * Diagnostic Test (Routine) - Closed Specialty Diagnoses / Procedures Referred By Contac t Referred To Contact Cardiology Diagnoses Paroxysmal atrial fibrillation Procedures Ziopatch 48 Hrs-15 Days Kenny Nelson MD [facility] [place] [address] [facility] [place] [address] Referral ID Status Reason Start Date Expiration Date V isits Requested Visits Authorized [id number] Closed Specialty Service Requested 06/14/2021 12/15/2021 1 1 Encounter Details Date Type Department Care Team (Late st Contact Info) Description 03/07/2021 Orders Only Cardiology at [address] [address] Kenny Nelson MD [facility] [place] [address] Paroxysmal atrial fibrillation Social History [...] fibrillation documented in this encounter Care Teams Manager Special Events Relationship Specialty Start Date End Date Camacho Barrera DO [address] [place] [address] PCP - General Family Medicine 07/01/18 documented as of this encounter
--- OUTSIDE RECORDS SUMMARY | 2024-09-25 08:41 | XMS_ITS | Encounter Summary ---
[place] [address] Care Team Providers Care Child And Family Therapist Name Role Phone Camacho Barrera DO Primary Care Provider [phone] Reason for Visit * Reason Onset Date Comments Medication Refill 06/14/2021 Encounter Details Date Type Department Care Team (Late st Contact Info) Description 06/14/2021 Refill Cardiology at [address] [address] Kenny Nelson MD [facility] [place] [address] Medication Refill Social History Tobacco Use Types [...] fibrillation documented in this encounter Care Teams Child And Family Therapist Relationship Specialty Start Date End Date Camacho Barrera DO [address] [place] [address] PCP - General Family Medicine 07/01/18 documented as of this encounter
--- OUTSIDE RECORDS SUMMARY | 2024-09-25 08:41 | XMS_ITS | Encounter Summary ---
Author Organization [facility] [place] [address] Care Team Providers Care Pyrometer Temperature Regulator Name Role Phone Camacho Barrera DO Primary Care Provider Encounter Details Date Type Department Care Team (Late st Contact Info) Description 05/30/2022 Telephone Cardiology at [address] [address] Karlene Miller, RN Social History Tobacco Use [...] to patient in response to the following [facility] message: My pulse rate jumped up to 120 on 05/23. and has been there every day since then. I met with COTTON PROGRAM TECHNICIAN Claribel Cummings at [facility] [phone]. She left messages with [facility] yesterday. She didan EKG and was quite concerned. I met with Dr Nguyen Cline from [facility] on 05/21 but I had no symptoms [...] states that he saw Claribel Cummings at [facility] yesterday for a non related [...] here. Karlene Miller RN [facility] [address] documented in this encounter Plan of Treatment Not on file documented as of this encounter Visit Diagnoses Not on filedocumented in this encounter Care Teams Pyrometer Temperature Regulator Relationship Specialty Start Date End Date Camacho Barrera DO [address] [place] [address] PCP - General Family Medicine 07/01/18 documented as of this encounter
--- OUTSIDE RECORDS SUMMARY | 2024-09-25 08:41 | XMS_ITS | Encounter Summary ---
Author Organization [facility] [place] [address] Care Team Providers Care Padded Box Sewer Name Role Phone Camacho Barrera DO Primary Care Provider [phone] Reason for Visit * Auth/Cert Specialty Diagnoses / Procedures Referred By Contac t Referred To Contact Diagnoses Other persistent atrial fibrillation atrial fibrillation Procedures PRO CARDIOVERSION ELECTIVE ARRHYTHMIA EXTERNAL CARDIOVERSION-ELECTIVE (WRVU 2.25) Fred Maki MD [facility] [place] [address] [facility] Referral ID Status Reason Start Date Expiration Date Visits Re quested Visits Authorized [id number] 1 1 Encounter Details Date Type Department Care Team (Late st Contact Info) Description 08/28/2022 11:30 AM EDT - 08/28/2022 12:00 PM EDT [place] [address] Fred Maki MD [facility] [place] [address] CARDIOVERSION-ELECTIVE (WRVU 2) Social History Tobacco Use [...] the adhesive pads were placed, call the community relations coordinator network operations specialist at . We will schedule a follow-up appointment with the community relations coordinator here, or you will be scheduled to [...] the adhesive pads were placed, call the community relations coordinator network operations specialist at . We will schedule a follow-up appointment with the community relations coordinator here, or you will be scheduled to see your local doctor soon. September 11, 2022 9am at [facility] with Dr. Torres for follow upafter [...] from the original note were not included. [facility] [place] Operative Note Patient Name: Camacho Flores : 1945 MR#: [id number] Case Date: 08/28/2022 Coffee Maker Servicer: Fred Maki MD, PhD Referring Provider: Gonzales [...] resident or fellow. Fred Maki MD, PhD, [facility] Cardiac Electrophysiology 08/28/2022 11:51 AM documented in this encounter Plan of Treatment Not on file documented as of this encounter Procedures Procedure Name Priority Date/Time Associated Diagnosis Comments EKG 12-LEAD STAT 08/28/2022 12:09 PM EDT Persistent atrial fibrillation Cardioversion Elective Arrhythmia External (37803) 08/28/2022 11:20 AM EDT Persistent atrial fibrillation [...] (Bezet) 477 ms MUSE SYSTEM Calculated P [place] 77 degrees MUSE SYSTEM Calculated R [place] 27 degrees MUSE SYSTEM Calculated T [place] 114 degrees MUSE SYSTEM INTERPRETATION Normal sinus rhythm Nonspecific T wave abnormality Prolonged QTc Abnormal ECG When compared with ECG of 28-AUG-2022 09:14, (unconfirmed) Sinus rhythm has replaced Atrial flutter Vent. rate has decreased BY ??42 BPM T wave inversion no longer evident in Inferior leads Confirmed by MD Mckinney Danette ([id number]) on 08/28/2022 7:59:47 PM MUSE SYSTEM 08/28/2022 [...] CRNA) documented in this encounter Care Teams Padded Box Sewer Relationship Specialty Start Date End Date Camacho Barrera DO [address] [place] [address] PCP - General Family Medicine 07/01/18 documented as of this encounter
--- OUTSIDE RECORDS SUMMARY | 2024-09-25 08:41 | XMS_ITS | Encounter Summary ---
Author Organization [facility] [place] [address] Care Team Providers Care Youth Teacher Name Role Phone Camacho Barrera DO Primary Care Provider [phone] Encounter Details Date Type Department Care Team (Late st Contact Info) Description 08/14/2022 Ancillary Procedure Radiology Library [place] [address] Camacho Barrera DO [address] [place] [address] Social History Tobacco Use Types [...] CT Spine (08/14/2022 12:00 AM EDT) Narrative [facility] - 08/15/2023 4:36 AM EDT This exam is auto-finalizing. It's purpose is for storage only. Camacho Barrera DO IM FILM LIBRARY ORD ERABLES [place], [place] documented in this encounter Visit Diagnoses Not on filedocumented in this encounter Care Teams Youth Teacher Relationship Specialty Start Date End Date Camacho Barrera DO [address] [place] [address] PCP - General Family Medicine 07/01/18 documented as of this encounter
--- OUTSIDE RECORDS SUMMARY | 2024-09-25 08:41 | XMS_ITS | Encounter Summary ---
[place] [address] Care Team Providers Care Structural Steel Painter Name Role Phone Camacho Barrera DO Primary Care Provider [phone] Reason for Visit * Reason Onset Date Comments Medication Refill 06/14/2021 Encounter Details Date Type Department Care Team (Late st Contact Info) Description 06/14/2021 Refill Cardiology at [address] [address] Kenny Nelson MD [facility] [place] [address] Medication Refill Social History Tobacco Use Types [...] fibrillation documented in this encounter Care Teams Structural Steel Painter Relationship Specialty Start Date End Date Camacho Barrera DO [address] [place] [address] PCP - General Family Medicine 07/01/18 documented as of this encounter
--- OUTSIDE RECORDS SUMMARY | 2024-09-25 08:41 | XMS_ITS | Encounter Summary ---
Author Organization [facility] [place] [address] Care Team Providers Care Residential Nurse Name Role Phone Camacho Barrera DO Primary Care Provider [phone] Reason for Visit * Auth/Cert Specialty Diagnoses / Procedures Referred By Contac t Referred To Contact Diagnoses Other persistent atrial fibrillation atrial fibrillation Procedures PRO CARDIOVERSION ELECTIVE ARRHYTHMIA EXTERNAL CARDIOVERSION-ELECTIVE (WRVU 2.25) Fred Maki MD [facility] [place] [address] [facility] Referral ID Status Reason Start Date Expiration Date Visits Re quested Visits Authorized [id number] 1 1 Encounter Details Date Type Department Care Team (Latest Contact Info) Description 08/28/2022 8:15 AM EDT Laboratory Appointment Lab [address] [place] [address] Persistent atrial fibrillation Social History Tobacco Use [...] EDT) Glucose 124 65 - 199 mg/dL [facility] Comment:Diabetes: >=200 mg/d L plus symptoms Blood Urea Nitrogen 15 10 - 20 mg/dL [facility] Creatinine 1.00 0.80 - 1.50 mg/dL [facility] Sodium 141 135 - 145 mmol/L [facility] Potassium 4.4 3.5 - 5.0 mmol/L [facility] Comment: Please note: ??Patients with WBC >100,000 may have falsely elevated Potassium levels. ??For accurate Potassium quantification in these patients send serum separator tube (gold top) for subsequent determinations. ??Contact the Clinical Chemistry Laboratory if there are any questions. Chloride 103 98 - 107 mmol/L [facility] Carbon Dioxide 27 22 - 31 mmol/L [facility] Anion Gap 11 5 - 15 mmol/L [facility] Calcium 10.1 8.5 - 10.5 mg/dL [facility] Est Glomerular Filtration Rate 78 >=60 mL/min/1. 73 m?? [facility] Comment: This patient's estimated [...] Resulting Agency Comment Spec In Lab Harriett Talleyen LAGGING MACHINE OPERATOR CHEMISTRY ORDERABLES [facility] [place] [address] * Magnesium (08/28/2022 8:23 AM EDT) Magnesium 0.87 0.69 - 1.07 mmol/L [facility] Blood 08/28/2022 8:23 AM EDT 08/28/2022 8:37 AM EDT Narrative Resulting Agency Comment Spec In Lab Harriett Chapa Aby LAGGING MACHINE OPERATOR CHEMISTRY ORDERABLES Performing Organization Address City/[facility] Co de Phone Number [facility] [place] [address] documented in this encounter Visit Diagnoses Diagnosis Persistent atrial fibrillation Atrial fibrillation documented in this encounter Care Teams Residential Nurse Relationship Specialty Start Date End Date Camacho Barrera DO [address] [place] [address] PCP - General Family Medicine 07/01/18 documented as of this encounter
--- OUTSIDE RECORDS SUMMARY | 2024-09-25 08:41 | XMS_ITS | Encounter Summary ---
[place] [address] Care Team Providers Care Knit Goods Washer Name Role Phone Camacho Barrera DO Primary Care Provider [phone] Encounter Details Date Type Department Care Team (Late st Contact Info) Description 07/17/2022 Telephone Cardiology at [address] [address] Miryam-Mikayla Watt, RN Social History Tobacco Use [...] heneeds [facility] for evaluation and treatment. Pt agrees with [...] Dr. Torres, who also goes up to [place] each month) re: discuss mapping and ablation [...] monitor post-cardioversion ... [place], so scheduling these items in a manner that minimizes trips would be mosthelpful and appreciated. documented in this encounter Plan of Treatment Not on file documented as of this encounter Visit Diagnoses Not on filedocumented in this encounter Care Teams Knit Goods Washer Relationship Specialty Start Date End Date Camacho Barrera DO [address] [place] [address] PCP - General Family Medicine 07/01/18 documented as of this encounter
--- OUTSIDE RECORDS SUMMARY | 2024-09-25 08:41 | XMS_ITS | Encounter Summary ---
[place] [address] Care Team Providers Care Lens Mold Setter Name Role Phone Camacho Barrera DO Primary Care Provider [phone] Encounter Details Date Type Department Care Team (Late st Contact Info) Description 01/15/2023 Interpretation Only [address] [address] Unknown None Social History Tobacco [...] Procedure Name Priority Date/Time Associated Diagnosis Comments [facility] POCUS Routine 01/15/2023 documented in this encounter Results * ARABELLA POCUS (01/15/2023) Anatomical Region Laterality Modality Other 01/15/2023 Narrative 01/15/2023 12:00 AM EST POCUS Image Procedure Note Unknown - 01/16/2023 POCUS Image Unknown EA IMAGES documented in this encounter Visit Diagnoses Not on filedocumented in this encounter Care Teams Lens Mold Setter Relationship Specialty Start Date End Date Camacho Barrera DO [address] [place] [address] PCP - General Family Medicine 07/01/18 documented as of this encounter
--- OUTSIDE RECORDS SUMMARY | 2024-09-25 08:41 | XMS_ITS | Encounter Summary ---
Author Organization [facility] [place] [address] Care Team Providers Care Mine Environmental Engineer Name Role Phone Camacho Barrera DO Primary Care Provider [phone] Encounter Details Date Type Department Care Team (Late st Contact Info) Description 04/20/2022 Ancillary Procedure Radiology Library at [facility] [place] [address] Camacho Barrera DO [address] [place] [address] Social History Tobacco Use Types [...] DX Spine (04/20/2022 12:00 AM EDT) Narrative [facility] - 05/10/2022 4:09 PM EDT This exam is auto-finalizing. It's purpose is for storage only. Camacho Barrera DO IM FILM LIBRARY ORD ERABLES [place], [place] documented in this encounter Visit Diagnoses Not on filedocumented in this encounter Care Teams Mine Environmental Engineer Relationship Specialty Start Date End Date Camacho Barrera DO [address] [place] [address] PCP - General Family Medicine 07/01/18 documented as of this encounter
--- OUTSIDE RECORDS SUMMARY | 2024-09-25 08:41 | XMS_ITS | Encounter Summary ---
Author Organization [facility] [place] [address] Care Team Providers Care Senior Licensing Manager Name Role Phone Camacho Barrera DO Primary Care Provider [phone] Reason for Visit * Reason Comments Atrial Fibrillation Encounter Details Date Type Department Care Team (Late st Contact Info) Description 09/11/2022 9:00 AM EDT Office Visit Cardiology at [address] [address] Gonzales Torres MD [facility] [place] [address] Premature ventricular beats Social History Tobacco Use [...] time For any questions, call my office: [phone] (and then 'option 2') Gonzales ESCALERA.ChB, Clinical Cardiac Electrophysiology, [facility], For more information about heart rhythm issues, go to [email or web address] - the Heart Rhythm Society's patient resource center [facility] To access your health care information, go to the web at: [email or web address] (you will need to register) Heart-Healthy Lifestyle [...] more? Visit our health information library at [email or web address] You can also view health information on [employer], your personal patient account. Log in or sign uptoday. documented in this encounter Progress Notes * Gonzales Torres MD - 09/11/2022 9:00 AM EDT Images from the original note were not included. Clinical Cardiac Electrophysiology Consult Patient ID Camacho Flores [id number] Camacho Flores is referred to the EP [...] [facility], lives with in [facility]. Social Determinants of Health Financial [...] reviewed the ECG: sinus rhythm, 53 bpm, CA 140 ms, QRS 80 ms, QT 480 [...] of symptoms GONZALES TORRES MD Cardiac Electrophysiology [facility] 35 minutes of [...] beats documented in this encounter Care Teams Senior Licensing Manager Relationship Specialty Start Date End Date Camacho Barrera DO [address] [place] [address] PCP - General Family Medicine 07/01/18 documented as of this encounter
--- OUTSIDE RECORDS SUMMARY | 2024-09-25 08:41 | XMS_ITS | Encounter Summary ---
[place] [address] Care Team Providers Care Skip Loader Name Role Phone Camacho Barrera DO Primary Care Provider [phone] Encounter Details Date Type Department Care Team (Late st Contact Info) Description 01/14/2023 External [place] [address] Social History Tobacco Use Types Packs/Day Years [...] on filedocumented in this encounter Care Teams Skip Loader Relationship Specialty Start Date End Date Camacho Barrera DO [address] [place] [address] PCP - General Family Medicine 07/01/18 documented as of this encounter
--- OUTSIDE RECORDS SUMMARY | 2024-09-25 08:41 | XMS_ITS | Encounter Summary ---
Author Organization [facility] Address [facility] [place] [address] Care Team Providers Care Windshield Repair Technician Name Role Phone Camacho Barrera DO Primary Care Provider [phone] Reason for Referral * Physical Therapy (Routine) - Closed Specialty Diagnoses / Procedures Referred By Contac t Referred To Contact Diagnoses Radiculopathy of lumbar region Central spinal stenosis Richar Ojeda PA [facility] [place] [place] [address] Physical Therapy, [address],[facility] [address] [place] [address] Referral ID Status Reason Start Date Expiration Date V isits Requested Visits Authorized [id number] Closed Evaluate and Treat 05/22/2022 11/18/2022 12 12 Reason for Visit * Reason Comments Back Pain Left Leg Pain * Consultation (Routine) - Closed Specialty Diagnoses / Procedures Referred By Contac t Referred To Contact [facility] Diagnoses Other intervertebral disc displacement, lumbar region Lumbar disc herniation/ MRI 04/22/22 & XR 04/20/22 in eDH Camacho Barrera DO [address] [place] [address] [facility] [place] [place] [address] Referral ID Status Reason Start Date Expiration Date V isits Requested Visits Authorized [id number] Closed Evaluate and Treat 05/21/2022 05/21/2023 3 3 Encounter Details Date Type Department Care Team (Latest Contact Info) Description 05/22/2022 3:15 PM EDT Office Visit [facility] [place] [address] Richar Ojeda PA [facility] [address] PAIN MANAGEMENT [place] [phone] Radiculopathy of lumbar region; Central spinal stenosis [...] the Center for [facility] @ [facility] for evaluation. HPI: Camacho is a 76 [...] cervical documented in this encounter Care Teams Windshield Repair Technician Relationship Specialty Start Date End Date Camacho Barrera DO [address] [place] [address] PCP - General Family Medicine 07/01/18 documented as of this encounter
--- OUTSIDE RECORDS SUMMARY | 2024-09-25 08:41 | XMS_ITS | Encounter Summary ---
[place] [address] Care Team Providers Care University Archivist Name Role Phone Camacho Barrera DO Primary Care Provider Reason for Visit * Auth/Cert Specialty Diagnoses / Procedures Referred By Contac t Referred To Contact Diagnoses Other persistent atrial fibrillation atrial fibrillation Procedures PRO CARDIOVERSION ELECTIVE ARRHYTHMIA EXTERNAL CARDIOVERSION-ELECTIVE (WRVU 2.25) Fred Maki MD [facility] [place] [address] [facility] Referral ID Status Reason Start Date Expiration Date Visits Re quested Visits Authorized [id number] 1 1 Encounter Details Date Type Department Care Team (Late st Contact Info) Description 08/28/2022 11:16 AM EDT Anesthesia [place] [address] [facility] [place] [address] Anesthesia Record Procedure Summary Procedure Name Responsible [...] tolerated well; 08/28/22; 1230 08/28/22 1103 by Edwina Hughes RN 08/28/22 1230 by Franky Chase [...] Procedure Summary Date: 08/28/22 Room / Location: [facility] Anesthesia Start: 1116 Anesthesia Stop: 1138 Procedure: CARDIOVERSION-ELECTIVE (WRVU 2.25) (N/A ) Diagnosis: Persistent atrial fibrillation (atrial fibrillation) Surgeons: Fred Maki MD Responsible Provider: Alisa Miller MD Anesthesia Type: general ASA Status: 2 All Anesthesia Providers: Anesthesiologist: Alisa Miller MD TOOL OPERATOR: Belen Hayes CRNA Student Nurse Computer Applications Developer: Ofe Roblero Vitals Value Taken Time BP 107/73 08/28/22 1200 Temp 36.3 ??C (97.3 ??F) 08/28/22 1141 Pulse 76 08/28/22 1207 Resp 19 08/28/22 1207 SpO2 94 % 08/28/22 1207 Pain Level 0 08/28/22 1141 Vitals shown include unvalidated device data. Patient Location: PACU/[facility] Level of Consciousness: Awake and Alert Pain [...] Flores a 76 y.o. male. Procedure(s): CARDIOVERSION-ELECTIVE ([facility] Patient Active Problem List Diagnosis Date [...] W/SCAN performed by Jose Small MD at [facility] ??? PRO STEREOTACTIC CPTR ASSTD PX CRANIAL, INTRADURAL Right 01/27/2015 STEREOTACTIC COMPUTER-ASSTD NAVIGATIONAL CRANIAL INTRADURAL performed by Jose Small MD at [facility] Social History Tobacco Use ??? [...] risks discussed with patient. Plan discussed with TOOL OPERATOR. Anesthesia Screening documented in this encounter Plan [...] mg documented in this encounter Care Teams University Archivist Relationship Specialty Start Date End Date Camacho Barrera DO [address] [place] [address] PCP - General Family Medicine 07/01/18 documented as of this encounter
--- OUTSIDE RECORDS SUMMARY | 2024-09-25 08:41 | XMS_ITS | Encounter Summary ---
[place] [address] Care Team Providers Care Sewer Pipe Cleaner Name Role Phone Camacho Barrera DO Primary Care Provider [phone] Encounter Details Date Type Department Care Team (Late st Contact Info) Description 08/27/2022 Telephone Cardiology at [address] [phone] Maria E Haque, RN Social History Tobacco [...] to procedure. NPO after midnight. Understands that regional company hazmat tanker driver is needed to transport them upon discharge. documented in this encounter Plan of Treatment Not on file documented as of this encounter Visit Diagnoses Not on filedocumented in this encounter Care Teams Sewer Pipe Cleaner Relationship Specialty Start Date End Date Camacho Barrera DO [address] [place] [address] PCP - General Family Medicine 07/01/18 documented as of this encounter
--- OUTSIDE RECORDS SUMMARY | 2024-09-25 08:41 | XMS_ITS | Encounter Summary ---
[place] [address] Care Team Providers Care String Winding Machine Operator Name Role Phone Camacho Barrera DO Primary Care Provider [phone] Reason for Visit * Reason Onset Date Comments Medication Refill 2021 Encounter Details Date Type Department Care Team (Late st Contact Info) Description 2021 Refill Cardiology at [address] [address] Kenny Nelson MD [facility] [place] [address] Medication Refill Social History Tobacco Use Types [...] on filedocumented in this encounter Care Teams String Winding Machine Operator Relationship Specialty Start Date End Date Camacho Barrera DO [address] [place] [address] PCP - General Family Medicine 07/01/18 documented as of this encounter
--- OUTSIDE RECORDS SUMMARY | 2024-09-25 08:41 | XMS_ITS | Encounter Summary ---
[place] [address] Care Team Providers Care Occupational Safety Specialist Name Role Phone Camacho Barrera DO Primary Care Provider [phone] Encounter Details Date Type Department Care Team (Late st Contact Info) Description 01/14/2023 Interpretation Only [address] [address] Unknown None Social History Tobacco [...] Procedure Name Priority Date/Time Associated Diagnosis Comments [facility] POCUS Routine 01/14/2023 documented in this encounter Results * [facility] POCUS (01/14/2023) Anatomical Region Laterality Modality Other 01/14/2023 Narrative 01/14/2023 12:00 AM EST POCUS Image Procedure Note Unknown - 01/16/2023 POCUS Image Unknown EA IMAGES documented in this encounter Visit Diagnoses Not on filedocumented in this encounter Care Teams Occupational Safety Specialist Relationship Specialty Start Date End Date Camacho Barrera DO [address] [place] [address] PCP - General Family Medicine 07/01/18 documented as of this encounter
--- OUTSIDE RECORDS SUMMARY | 2024-09-25 08:41 | XMS_ITS | Encounter Summary ---
[place] [address] Care Team Providers Care Credit Advisor Name Role Phone Camacho Barrera DO Primary Care Provider [phone] Encounter Details Date Type Department Care Team (Latest Contact Info) Description 10/18/2022 10:00 AM EST TH Visit (TeleHealth) Cardiology at [address] [address] Gonzales Torres MD [facility] [place] [address] S/P ablation of atrial fibrillation Social History [...] to be an in-person visit at the [facility], but he accidentally ended up in [place], so was converted to a telephone visit. [...] rates, for which he called into the [place] clinic. He ultimately had reasonable ventricular rate [...] visit was [facility] [place], but the patient ended up at [facility]. We conducted therest of the visit [...] status documented in this encounter Care Teams Credit Advisor Relationship Specialty Start Date End Date Camacho Barrera DO [address] [place] [address] PCP - General Family Medicine 07/01/18 documented as of this encounter
--- OUTSIDE RECORDS SUMMARY | 2024-09-25 08:41 | XMS_ITS | Encounter Summary ---
[place] [address] Care Team Providers Care Coil Placer Name Role Phone Camacho Barrera DO Primary Care Provider [phone] Reason for Referral * Consultation (Routine) - Closed Specialty Diagnoses / Procedures Referred By Contac t Referred To Contact [facility] Diagnoses Other intervertebral disc displacement, lumbar region Lumbar disc herniation/ MRI 04/22/22 & XR 04/20/22 in eDH Camacho Barrera DO [address] [place] [address] [facility] [address] Referral ID Status Reason Start Date Expiration Date V isits Requested Visits Authorized [id number] Closed Evaluate and Treat 05/21/2022 05/21/2023 3 3 Encounter Details Date Type Department Care Team (Latest Contact Info) Description 05/21/2022 Transcribe Orders eDH Incoming Referrals [phone] Camacho Barrera DO [address] [place] [address] Other intervertebral disc displacement, lumbar [...] as of this encounter Plan of Treatment Scheduled Referrals Name Type Priority Associated Diagnoses Orde r Schedule Referral to [facility] and Spine Center (Internal only) Outpatient Referral Routine Other intervertebral disc displacement, lumbar region Ordered: 05/21/2022 documented as of this encounter Visit Diagnoses Diagnosis Other intervertebral disc displacement, lumbar region documented in this encounter Care Teams Coil Placer Relationship Specialty Start Date End Date Camacho Barrera DO [address] [place] [address] PCP - General Family Medicine 07/01/18 documented as of this encounter
--- OUTSIDE RECORDS SUMMARY | 2024-09-25 08:41 | XMS_ITS | Encounter Summary ---
Author Organization [facility] [place] [address] Care Team Providers Care Faceter Name Role Phone Camacho Barrera DO Primary Care Provider [phone] Encounter Details Date Type Department Care Team (Late st Contact Info) Description 05/18/2023 Ancillary Procedure Radiology Library at [facility] [place] [address] Social History Tobacco Use Types Packs/Day Years [...] is for storage only. Camacho Barrera DO [facility] FILM LIBRARY ORD ERABLES documented in this encounter Visit Diagnoses Not on filedocumented in this encounter Care Teams Faceter Relationship Specialty Start Date End Date Camacho Barrera DO [address] [place] [address] PCP - General Family Medicine 07/01/18 documented as of this encounter
--- OUTSIDE RECORDS SUMMARY | 2024-09-25 08:41 | XMS_ITS | Encounter Summary ---
[place] [address] Care Team Providers Care Quality Inspector Name Role Phone Camacho Barrera DO Primary Care Provider [phone] Encounter Details Date Type Department Care Team (Late st Contact Info) Description 01/14/2023 [place] [address] Zen Zavaelta Jr., MD [facility] [place] [address] Social History Tobacco Use Types Packs/Day Years [...] provider/staff member. Referring Provider: Jesus Patino MD [address] [place] [id number] Camacho Flores 77 y.o. w / a [...] on filedocumented in this encounter Care Teams Quality Inspector Relationship Specialty Start Date End Date Camacho Barrera DO [address] [place] [address] PCP - General Family Medicine 07/01/18 documented as of this encounter
--- OUTSIDE RECORDS SUMMARY | 2024-09-25 08:41 | XMS_ITS | Encounter Summary ---
[place] [address] Care Team Providers Care Kitchen Steward/Stewardess Name Role Phone Camahco Barrera DO Primary Care Provider [phone] Encounter Details Date Type Department Care Team (Late st Contact Info) Description 11/07/2020 Telephone Cardiology at [address] [phone] Maria E Haque, RN Social History Tobacco [...] fibrillation documented in this encounter Care Teams Kitchen Steward/Stewardess Relationship Specialty Start Date End Date Camacho Barrera DO [address] [place] [address] PCP - General Family Medicine 07/01/18 documented as of this encounter
--- OUTSIDE RECORDS SUMMARY | 2024-09-25 08:41 | XMS_ITS | Encounter Summary ---
[place] [address] Care Team Providers Care School Occupational Therapist Name Role Phone Camacho Barrera DO Primary Care Provider [phone] Reason for Visit * Reason Onset Date Comments Medication Refill 11/13/2021 Encounter Details Date Type Department Care Team (Late st Contact Info) Description 11/13/2021 Refill Cardiology at [address] [address] Kenny Nelson MD [facility] [place] [address] Medication Refill Social History Tobacco Use Types [...] on filedocumented in this encounter Care Teams School Occupational Therapist Relationship Specialty Start Date End Date Camacho Barrera DO [address] [place] [address] PCP - General Family Medicine 07/01/18 documented as of this encounter
--- OUTSIDE RECORDS SUMMARY | 2024-09-25 08:41 | XMS_ITS | Encounter Summary ---
[place] [address] Care Team Providers Care Sdet Name Role Phone Camacho Barrera DO Primary Care Provider [phone] Reason for Referral * Diagnostic Test (Routine) - Closed Specialty Diagnoses / Procedures Referred By Contac t Referred To Contact Cardiology Diagnoses Paroxysmal atrial fibrillation Procedures Ziopatch 48 Hrs-15 Days Kenny Nelson MD [facility] [place] [address] [facility] [place] [address] Referral ID Status Reason Start Date Expiration Date V isits Requested Visits Authorized [id number] Closed Specialty Service Requested 06/14/2021 12/15/2021 1 1 Reason for Visit * Diagnostic Test (Routine) - Closed Specialty Diagnoses / Procedures Referred By Contac t Referred To Contact Cardiology Diagnoses Paroxysmal atrial fibrillation Procedures Ziopatch 48 Hrs-15 Days Kenny Nelson MD [facility] [place] [address] [facility] [place] [address] Referral ID Status Reason Start Date Expiration Date V isits Requested Visits Authorized [id number] Closed Specialty Service Requested 06/14/2021 12/15/2021 1 1 Encounter Details Date Type Department Care Team (Latest Contact Info) Description 06/20/2021 7:40 AM EDT - 06/20/2021 11:59 PM EDT Hospital Encounter Non-Invasive Cardiology Lab [facility] [place] [phone] Kenny Nelson MD [facility] [place] [address] Paroxysmal atrial fibrillation Discharge Disposition: Home Social [...] fibrillation documented in this encounter Care Teams Sdet Relationship Specialty Start Date End Date Camacho Barrera DO [address] [place] [address] PCP - General Family Medicine 07/01/18 documented as of this encounter
--- OUTSIDE RECORDS SUMMARY | 2024-09-25 08:41 | XMS_ITS | Encounter Summary ---
Author Organization [facility] [place] [address] Care Team Providers Care Pouako Kura Kaupapa Maori Name Role Phone Camacho Barrera DO Primary Care Provider Reason for Visit * Reason Comments Atrial Fibrillation S/p ablation 2018 Encounter Details Date Type Department Care Team (Late st Contact Info) Description 02/05/2023 10:40 AM EST Office Visit Cardiology at [address] [place] [address] Gonzales Torres MD [facility] [place] [address] Tricuspid valve insufficiency, unspecified etiology Social History [...] Electrophysiology Consult Patient ID Camacho Flores 1945 [id number] Camacho Flores is referred to the EP [...] (arteriosclerotic cardiovascular disease) [facility] [...] [facility], lives with in [facility]. Social Determinants of Health Financial [...] reviewed the ECG: sinus rhythm, 53 bpm, OR 140 ms, QRS 80 ms, QT 480 [...] months time. GONZALES TORRES MD Cardiac Electrophysiology [facility] [place] 25 minutes of this 30 minute encounter [...] etiology documented in this encounter Care Teams Pouako Kura Kaupapa Maori Relationship Specialty Start Date End Date Camacho Barrera DO [facility] [place] [address] [place] [address] PCP - General Family Medicine 07/01/18 documented as of this encounter
--- OUTSIDE RECORDS SUMMARY | 2024-09-25 08:41 | XMS_ITS | Encounter Summary ---
[place] [address] Care Team Providers Care Rehab Therapist Name Role Phone Mirna Barrera DO Primary Care Provider [phone] Reason for Visit * Reason Comments Numbness From home for ED * Auth/Cert (Routine) Specialty Diagnoses / Procedures Referred By Mike johnson Referred To Contact Diagnoses Acute ischemic stroke Procedures ER OBSVO TO EMERGENCY IPI Fidel Barnett MD [facility] NEUROLOGY [place]PT [place] [address] [facility] Referral ID Status Reason Start Date Expiration Date Visits Re quested Visits Authorized [id number] 1 1 Encounter Details Date Type Department Care Team (Latest Contact Info) Description 05/20/2023 10:59 AM EDT - 05/21/2023 2:20 PM EDT Hospital Encounter Neuro Special Care Unit Level 5 [place] [address] Tylor Serna MD [facility] NEUROLOGY [place] [address] Fidel Barnett MD [facility] NEUROLOGY [place]PT [place] [address] Acute ischemic stroke (Primary Dx) Discharge Disposition: [...] Mirna Flores Patient Age: 77 y.o. Language: Citizen Of [place] Admit date: 05/20/2023 Discharge date and time: [...] / distal Lcx x2, ramus x1 at [facility]), brain abscess (s/p surgery and [...] the following morning and states that the implementation architect had to drain blood from his eye, and had to do this again later that day. He states that later on Friday evening, the symptoms in the R arms occurred again. Then on Friday AM he continued to have intermittent symptoms and went to [facility] for further assessment. He states that he had an MRI performed there that showed 2 or 3 mini-strokes. He states that he was feeling back to normal last night, when around 8 PM the index finger of the Rhand went completely numb. He states that his R arm also again felt floppy. He states that he messaged the neurologist at [facility] who recommended that he present to [facility] for further evaluation. 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 States that he was referred to vascular surgery here at [facility], though he has not seen them yet. [...] at proximal L A1 segment. MRI from [facility] readas few tiny foci of restricted diffusion [...] was thromboembolism. We discussed with his outpatient implementation architect clinic who felt it was safe for [...] has lengthened Confirmed by MD Mckinney Danette ([id number]) on 05/20/2023 3:03:07 PM CXR No results found. CT Head No results found. MRA Head and Neck No results found. MRI BRAIN No results found. CTA Carotids/[place] No results found. TTE Interpretation [...] L Elbow flexion 5/5 R, 5/5 L Armature Coil Winder LE: 5/5 R, 5/5 L Hip flexion [...] 0.4 mg Quantity: 90 tablet Refills: 12 fwnxdcfcruos-nohlggs-jxpljizgs 1-0.5-0.1 % Drops, Suspension Apply 1 drop [...] stroke, and education on stroke follow-up. Modified [place] Score (MRS) on discharge Score Description 0 [...] were admitted to the neurology service at [facility] Your Diagnosis: Stroke - Work close [...] follow-up appointment in the neurology clinic at [facility]. See below for the appointment time. [...] may be billed similar to a regular nuin-dg-oguu clinic visit. Primary Care Provider: Please follow up with your Primary Care Provider within one to 2 weeks of discharge. For questions regarding this document or issues relating to this hospitalization on the Neurology Service, please contact the author(s) of this discharge summary through the [facility] Workers Compensation Claims Examiner . If you need to cancel or reschedule, please call Dept: [phone] as soon as possible. This is helpful to us and other waiting patients. IF FOLLOW UP VISIT WITH STROKE TEAM IS NEEDED IN FORM OF TELEHEALTH: Please ensure you have an active [employer] account and are familiar with it. Also, please ensure an active email address. To sign up for a [employer] account, Visit the [email or web address] website and 1) choose ???create an account?? [...] created. If you need technical assistance call [phone] Friday through Friday, 7:30 am to 5:00 pm If you plan to join your [facility] Video Visit using your personal smartphone or tablet, prior to joining your visit you will need to download the Zoom adam from the Adam Store (for iPhone/iPad) or Iotelligent (for Android). Ifyou already have Zoom downloaded on your device for personal use, you???re good to go! 1. Open the Adam Store or [employer] Store on your device. 2. Search for Zoom and download the [employer]MostLikely [employer] adam. ? Adam Store Link: https://apps.[employer]/us/adam/omwx-lbfpx-uxuluxbe/zb821420470 ? [employer] Link: https://awesomize.me/store/apps/details?id=us.zoom.videomeetings If you plan to join your [facility] Video Visit using your computer or laptop, [...] link to connect to your visit withinyour [facility] portal. 1. Sign into your myD-H account. 2. Select Appointments. 3. Select your [facility] Video Visit and tap Begin Visit. 4. [...] Starting 30 minutes prior to your scheduled [facility] Visit, you will find the link to connect tothe visit within your [facility] portal. 1. Sign into your [facility]StarGen account ([facility] portal link: [email or web address]). 2. On the top of the webpage, hover over Visits and select Appointments and Visits. 3. Click the Details button next to your [facility] video visit. 4. Click the Begin Video [...] 11:00 AM Milagros Parra APRN Neurology at [facility] Arrive at: [employer] [address] [phone] 08/13/2023 2:00 PM Gonzales Torres MD Cardiology at [facility] Arrive at: [facility] [address] [phone] Primary Care Provider: Mirna Barrera DO [address] [facility] [address] Discharge References/Attachments None documented in this encounter Discharge Instructions * Patient Instructions* Caroline Singh DO - 05/21/2023 9:12 AM EDT Images from the original note were not included. Patient Instructions: You were admitted to the neurology service at [facility] Your Diagnosis: Stroke - Work close [...] follow-up appointment in the neurology clinic at [facility]. See below for the appointment time. [...] may be billed similar to a regular ysui-fn-rzhw clinic visit. Primary Care Provider: Please follow up with your Primary Care Provider within one to 2 weeks of discharge. For questions regarding this document or issues relating to this hospitalization on the Neurology Service, please contact the author(s) of this discharge summary through the [facility] Workers Compensation Claims Examiner . If you need to cancel or reschedule, please call Dept: [phone] as soon as possible. This is helpful to us and other waiting patients. IF FOLLOW UP VISIT WITH STROKE TEAM IS NEEDED IN FORM OF TELEHEALTH: Please ensure you have an active [employer] account and are familiar with it. Also, please ensure an active email address. To sign up for a [employer] account, Visit the [email or web address] website and 1) choose ???create an account?? [...] created. If you need technical assistance call [phone] Friday through Friday, 7:30 am to 5:00 pm If you plan to join your [facility] Video Visit using your personal smartphone or tablet, prior to joining your visit you will need to download the Zoom adam from the Adam Store (for iPhone/iPad) or Iotelligent (for Android). Ifyou already have Zoom downloaded on your device for personal use, you???re good to go! 1. Open the Adam Store or Iotelligent Store on your device. 2. Search for Zoom and download the [employer]MostLikely [place] adam. ? Adam Store Link: https://SeeMore Interactive.[employer]/us/adam/hpmb-hbpso-mbeyidzu/gb607721208 ? [employer] Link: https://awesomize.me/store/apps/details?id=us.zoom.videomeetings If you plan to join your [facility] Video Visit using your computer or laptop, prior to joining your video visit you will need to download Zoom. If you already have Zoom downloaded on your machine for personal use, you???re good to go! 1. Open your web browser (Internet Explorer, Chrome, etc.). 2. Type zoom.us and press enter on your keyboard (or click this link: https://zoMostLikely.us/). 3. In the top right corner of [...] link to connect to your visit withinyour [facility] portal. 1. Sign into your myD-H account. 2. Select Appointments. 3. Select your [facility] Video Visit and tap Begin Visit. 4. [...] link to connect tothe visit within your [facility] portal. 1. Sign into your myD-H account (myD-H portal link: [email or web address]). 2. On the top of the webpage, hover over Visits and select Appointments and Visits. 3. Click the Details button next to your [facility] video visit. 4. Click the Begin Video [...] mouth daily. 30 tablet 3 05/22/2023 02/11/2024 vxwawkemmjow-hjgcgss-mt pafenac 1-0.5-0.1 % Drops, Suspension Apply 1 [...] / distal Lcx x2, ramus x1 at [facility]), brain abscess (s/p surgery and [...] 2.25) performed by Fred Maki MD at [facility] MAIN OR PRO STEREO BX/ASPIR/EXCIS, INTRACRANIAL LESN Right 01/27/2015 @STEREOTACTIC BX,ASP, OR EXC.-INTRACRANIAL LESION, W/SCAN performed by Jose Small MD at [facility] MAIN OR PRO STEREOTACTIC CPTR ASSTD PX CRANIAL, INTRADURAL Right 01/27/2015 STEREOTACTIC COMPUTER-ASSTD NAVIGATIONAL CRANIAL INTRADURAL performed by Jose Small MD at [facility] MAIN OR Social History: Home set-up: Pt [...] outlined in thisevaluation. Time IN / OUT: 9241-4296 Total Minutes, Physical Therapy: 11 Billing Code: low complexity eval Breana Stewart, PT Pager: [phone] Physical Therapy Inpatient Rehabilitation Department * [place] [...] / distal Lcx x2, ramus x1 at [facility]), brain abscess (s/p surgery and [...] the following morning and states that the implementation architect had to drain blood from his eye, and had to do this again later that day. He states that later on Friday evening, the symptoms in the R arms occurred again. Then on Friday AM he continued to have intermittent symptoms and went to [facility] for further assessment. He states that he had an MRI performed there that showed 2 or 3 mini-strokes. He states that he was feeling back to normal last night, when around 8 PM the index finger of the Rhand went completely numb. He states that his R arm also again felt floppy. He states that he messaged the neurologist at [facility] who recommended that he present to [facility] for further evaluation. 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 States that he was referred to vascular surgery here at [facility], though he has not seen them yet. [...] at proximal L A1 segment. MRI from [facility] readas few tiny foci of restricted diffusion [...] Tablet Take 10 mg by mouth daily. ciivubgxtedg-eefulae-tnlenofwe 1-0.5-0.1 % Drops, Suspension Apply 1 drop [...] 2.25) performed by Fred Maki MD at [facility] MAIN OR PRO STEREO BX/ASPIR/EXCIS, INTRACRANIAL LESN Right 01/27/2015 @STEREOTACTIC BX,ASP, OR EXC.-INTRACRANIAL LESION, W/SCAN performed by Jose Small MD at [facility] MAIN OR PRO STEREOTACTIC CPTR ASSTD PX CRANIAL, INTRADURAL Right 01/27/2015 STEREOTACTIC COMPUTER-ASSTD NAVIGATIONAL CRANIAL INTRADURAL performed by Jose Small MD at [facility] MAIN OR Allergy: Allergies Allergen Reactions Bee [...] evening Illicits: Denies Living situation: lives in [place] [facility] with 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 Social Determinants of Health Financial Resource [...] L Elbow flexion 5-/5 R, 5/5 L Armature Coil Winder LE: 5/5 R, 5/5 L Hip flexion [...] / distal Lcx x2, ramus x1 at [facility]), brain abscess (s/p surgeryand ABX treatment in [...] will also reach out to his outpatient implementation architect regarding safety from ophthalmology perspective for dual [...] to increasethis to 80 mg daily at [facility]) -Continue home Xarelto 20 mg nightly -TTE [...] in R eye related to recent surgery-->PRN forcsvviqfow-kmmrkoi-vdnoatcyw drops 1 drop in R eye, followed by timolol drops in both eyes 10 minutes later, followed by1 drop alphagan in the R eye 10 minutes later # Routine -Home Xarelto continued (DVT PPx) -RBOs -SCDs -Regular diet -Tylenol PRN -Up with assistance # FULL code Stroke Navigator Completed: Yes Caroline Singh DO Neurology Resident, PGY-3 05/21/23 Vascular Neurology Pager [phone] Standard [facility] Swallow Screen: This screen is to be [...] diet as medical provider deems appropriate. Consider [employer] consult for full evaluation and diet recommendations. [...] / distal Lcx x2, ramus x1 at [facility]), brain abscess (s/p surgery and [...] the following morning and states that the implementation architect had to drain blood from his eye, and had to do this again later that day. He states that later on Friday evening, the symptoms in the R arms occurred again. Then on Friday AM he continued to have intermittent symptoms and went to [facility] for further assessment. He states that he had an MRI performed there that showed 2 or 3 mini-strokes. He states that he was feeling back to normal last night, when around 8 PM the index finger of the Rhand went completely numb. He states that his R arm also again felt floppy. He states that he messaged the neurologist at [facility] who recommended that he present to [facility] for further evaluation. 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 States that he was referred to vascular surgery here at [facility], though he has not seen them yet. [...] at proximal L A1 segment. MRI from [facility] readas few tiny foci of restricted diffusion [...] Tablet Take 10 mg by mouth daily. qrgyqmvcpvbt-azkrlsg-zqwbffaot 1-0.5-0.1 % Drops, Suspension Apply 1 drop [...] 2.25) performed by Fred Maki MD at [facility] MAIN OR PRO STEREO BX/ASPIR/EXCIS, INTRACRANIAL LESN Right 01/27/2015 @STEREOTACTIC BX,ASP, OR EXC.-INTRACRANIAL LESION, W/SCAN performed by Jose Small MD at [facility] MAIN OR PRO STEREOTACTIC CPTR ASSTD PX CRANIAL, INTRADURAL Right 01/27/2015 STEREOTACTIC COMPUTER-ASSTD NAVIGATIONAL CRANIAL INTRADURAL performed by Jose Small MD at [facility] MAIN OR Allergy: Allergies Allergen Reactions Bee [...] evening Illicits: Denies Living situation: lives in [place] [facility] with his Occupation: retired in 2009 ([employer]) Social History Socioeconomic History Marital status: Spouse [...] [facility], 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 Social Determinants of Health Financial Resource [...] L Elbow flexion 5-/5 R, 5/5 L Armature Coil Winder LE: 5/5 R, 5/5 L Hip flexion [...] / distal Lcx x2, ramus x1 at [facility]), brain abscess (s/p surgeryand ABX treatment in [...] Imaging was obtained from the encounter at [facility], so we will defer repeating an MRI [...] to increasethis to 80 mg daily at [facility]) -Continue home Xarelto 20 mg nightly -TTE -12 lead EKG -Telemetry -EEG -CUS pending - consider vascular surgery consult if significant L ICA stenosis -defer repeat brain MRI for now -CTA CoW as above -CTA carotids pending -PT/OT/[employer] # Home meds - timolol 1 drop both eyes BID - IF pt develops vision problems in R eye related to recent surgery-->PRN vjlnzrefggmk-hxqivwq-cnvxrbhzt drops 1 drop in R eye, followed by timolol drops in both eyes 10 minutes later, followed by1 drop alphagan in the R eye 10 minutes later # Routine -Home Xarelto continued (DVT PPx) -RBOs -SCDs -Regular diet -Tylenol PRN -Up with assistance # FULL code Stroke Navigator Completed: Yes Jose Campos DO Neurology Resident, PGY-2 05/20/23 Vascular Neurology Pager [phone] Case was discussed and pt was seen with attending neurologist Dr. Fidel Barnett MD Standard [facility] Swallow Screen: This screen is to be [...] diet as medical provider deems appropriate. Consider [employer] consult for full evaluation and diet recommendations. [...] of two midnights or is on the [facility] inpatient only procedure list (status C) due [...] weakness/clumsiness, for which she was seen at [facility] with an MRI demonstrating, in his words, [...] AM EDT Coming from home referred by [facility] neurology for right arm weakness. H/O Afib on Xarelto 20mg QD. 05/17 had cataract surgery complicated by hemorrhage requiring drainage. Admitted recently 05/18- for CVA with right-sided arm weakness which all but resolved. Has bilat carotid stenosis, R>L. Last night had right arm numbness. Had MRI/MRA performed and images were pushed by [facility]. Leelee Oliveira MD 05/20/23 [id number] documented in this encounter Miscellaneous Notes * Initial Assessments - Dara Jean Baptiste SLP - 05/21/2023 1:56 PM EDT Speech Language Pathology Contact Note - No Charge 05/21/2023 1:57pm Order received earlier today for bedside [employer] evaluation has now been cancelled by team (pt has reported no new [employer] needs) and pt is now pending discharge. Should discharge plan change or pt demonstrate any new/acute [employer] needs today, please feel free to reconsult service and page this [employer] directly. Thank you! Dara Jean Baptiste M.S., [facility]-[employer] Pager: [phone] Speech-Language Pathology Inpatient Rehabilitation Medicine * Initial Assessments - Enriqueta Herndon RN - 05/21/2023 1:37 PM EDTSummary: CM IA AND D/C NOTE D/C planning: Team: [facility] Neuro Pager: [phone] Pt to d/c home via private vehicle.. Pt/team feel no d/c needs identified at this time. Pt is awareof d/c plan and is in agreement. Enriqueta Herndon MSN-Ed, RN ACM severity of illness coordinator Office of Care Management Pager #[phone] * Plan of Care - Argelia Crook [...] Consult Note - Hue Rios, [facility] - 05/20/2023 2:44 PM EDTSummary: Geriatric ED [...] Current Outpatient Medications Medication Sig Dispense Refill sanubsxhhyrs-xnlyiam-xwoovlirp 1-0.5-0.1 % Drops, Suspension Apply 1 drop [...] atorvastatin 80mg. Will reach out to patient's tail worker. -Metoprolol; patient reported being advised to stop metoprolol 2 weeks ago. Unclear reason for discontinuation in chart, will reach out to tail worker for clarification. Beer's List Review: None Pertinent [...] 12-LEAD STAT 05/20/2023 12:[address] [place] W CONTRAST STAT 05/20/2023 12:08 [...] Text Report Department: Vascular Surgery Lab Patient: [id number] (MIRNA FLORES) CPT: 88096 Referring Physician: FIDEL BARNETT ?? Indications: Left [...] COMPLETE W CONTRAST (05/21/2023 11:19 AM EDT) Pathologist [facility] EF 65 HEARTLAB SYSTEM Anatomical Region Laterality Modality Cardiac Other 05/21/2023 9:58 AM EDT Narrative 05/21/2023 12:14 PM EDT ? Echocardiogram Report Name: MIRNA FLORES ? Study Date: 05/21/2023 09:58 AMBP: 143/79 mmHg ? Patient Location: [id number] A : 1945 ? Height: 187 cm ? Account: [id number] Age: 77 yrs ? Weight: 91 kg Gender: Male ?BSA: 2.2 m2 Ordering Physician: TYLOR SERNA Referring Physician: CASSIE HOFF Performed By: Cassie Sanchez RDMS Reason For Study: Stroke Interpreting Fellow: Cesar Singh. Exam Location: [facility]. Interpretation Summary - Technically limited study. - [...] Date: 309:58 AMBP: 143/79 mmHg Patient Location: [id number] A : 1945 Height: 187 cm Account: [id number] Age: 77 yrs Weight: 91 kg Gender: Male BSA: 2.2 m2 Ordering Physician: TYLOR SERNA Referring Physician: CASSIE HOFF Performed By: Cassie Sanchez RDMS Reason For Study: Stroke Interpreting Fellow: Cesar Singh. Exam Location: [facility]. Interpretation Summary - Technically limited study. - [...] who have questions please contact the health home care aide that requested your imaging first. ? Narrative 05/21/2023 9:53 AM EDT EXAMINATION: CT ANGIOGRAM CAROTIDS CLINICAL HISTORY: Pt with intermittent numbness/tingling of the R hand, concern for possible atherosclerotic disease in carotids TECHNIQUE: CTA of the neck performed after the intravenous administration of contrast. 65. MIP and 3-D volumetric reconstructions were created. COMPARISON: CT head May 20, 2023. CTA [place] May 20, 2023. MRI brain, [...] COMPARISON: CT head May 20, 2023. CTA [place] May 20, 2023. MRI brain, [...] patients who have questions please contactthe health home care aide that requested your imaging first. Tylor Serna MD IMG CT ORDERABLES * (ABNORMAL) Differential, Automated (05/21/2023 12:38 AM EDT) Neutrophil % 45.4 % [facility] Neutrophil Absolute 4.61 1.70 - 6.10 x10(3)/mc L [facility] Lymph % 17.9 % [facility] Lymphocytes Abs 1.8 0.9 - 3.2 x10(3)/ L [facility] Monocyte % 9.6 % [facility] Monocyte Abs 1.0(H) 0.3 - 0.9 x10(3)/ L [facility] Eos % 26.1 % [facility] Eosinophils Abs 2.6(H) 0.0 - 0.4 x10(3)/[facility] Basophil % 0.7 % [facility] Baso Absolute 0.1 0.0 - 0.1 x10(3)/ L [facility] Immature Gran % 0.30 % [facility] Comment: Immature granulocytes(IG's)percentage and absolute count will include metamyelocytes, myelocytes, and promyelocytes. Blood smears from CBCs yielding IG's will be scanned manually for concordance. If this scan disagrees with the automated IG or if promyelocytes are noted, a manual differential will be performed. Immature Gran Absolute 0.03 0.00 - 0.04 x10(3)/ L [facility] Blood 05/21/2023 12:3 8 AM EDT 05/21/2023 1:10 AM EDT Narrative Resulting Agency Comment Spec In Lab Jose Campos DO HEMATOLOGY ORDERABLE S Performing Organization Address City/State/[facility] Co de Phone Number [facility] [place] [address] * (ABNORMAL) Hemogram (05/21/2023 12:38 AM EDT) White Blood Cell 10.1(H) 4.0 - 9.5 x10(3)/mc L [place] [facility] Red Blood Cell 4.31(L) 4.58 - 5.54 x10(6)/ L [facility] Hemoglobin 14.1 13.7 - 16.5 g/dL [facility] Hematocrit 41.2 40.5 - 48.5 % [facility] Mean Cell Volume 95.6(H) 82.9 - 93.1 fL [facility] Mean Cell Hemoglobin 32.7(H) 27.5 - 32.1 pg [facility] Mean Cell Hemoglobin Concentration 34.2 32.0 - 35.7 g/dL [facility] Platelet 223 145 - 357 x10(3)/mc L [facility] RDW Standard Deviation 48.8(H) 36.0 - 45.0 fL [facility] RDW coefficient of variation 13.7 11.4 - 13.8 % [facility] Mean Platelet Volume 10.8 7.6 - 12.9 fL [facility] NRBC% auto 0.0 % [facility] NRBC Absolute 0.000 0.000 - 0.000 x10(3)/mc L [facility] Blood 05/21/2023 12:3 8 AM EDT 05/21/2023 1:10 AM EDT Narrative Resulting Agency Comment Spec In Lab Jose Campos DO HEMATOLOGY ORDERABLE S Performing Organization Address City/[facility] Co de Phone Number [facility] [place] [address] * Phosphorus (05/21/2023 12:38 AM EDT) Phosphorus 3.7 2.5 - 4.5 mg/dL [facility] Blood 05/21/2023 12:3 8 AM EDT 05/21/2023 1:10 AM EDT Narrative Resulting Agency Comment Spec In Lab Tylor Serna MD CHEMISTRY ORDERABLES Performing Organization Address City/[facility] Co de Phone Number [facility] [place] [address] * Magnesium (05/21/2023 12:38 AM EDT) Magnesium 0.88 0.69 - 1.07 mmol/L [facility] Blood 05/21/2023 12:3 8 AM EDT 05/21/2023 1:10 AM EDT Narrative Resulting Agency Comment Spec In Lab Tylor Serna MD CHEMISTRY ORDERABLES Performing Organization Address City/[facility]/ZIP Co de Phone Number [facility] [place] [address] * Calcium (05/21/2023 12:38 AM EDT) Calcium 9.5 8.5 - 10.5 mg/dL [facility] Blood 05/21/2023 12:3 8 AM EDT 05/21/2023 1:10 AM EDT Narrative Resulting Agency Comment Spec In Lab Tylor Serna MD CHEMISTRY ORDERABLES [facility] [place] [address] * (ABNORMAL) Basic Metabolic Panel (non-fasting) (05/21/2023 12:38 AM EDT) Glucose 99 65 - 199 mg/dL [facility] Comment:Diabetes: >=200 mg/d L plus symptoms Blood Urea Nitrogen 17 10 - 20 mg/dL [facility] Creatinine 0.70(L) 0.80 - 1.50 mg/dL [facility] Sodium 139 135 - 145 mmol/L [facility] Potassium 4.0 3.5 - 5.0 mmol/L [facility] Comment: Please note: ??Patients with WBC >100,000 may have falsely elevated Potassium levels. ??For accurate Potassium quantification in these patients send serum separator tube (gold top) for subsequent determinations. ??Contact the Clinical Chemistry Laboratory if there are any questions. Chloride 105 98 - 107 mmol/L [facility] Carbon Dioxide 23 22 - 31 mmol/L [facility] Anion Gap 11 5 - 15 mmol/L [facility] Calcium 9.5 8.5 - 10.5 mg/dL [facility] Est Glomerular Filtration Rate 95 >=60 mL/min/1. 73 m?? [facility] Comment: This patient's estimated GFR [...] In Lab Tylor Serna MD CHEMISTRY ORDERABLES [facility] [place] [address] * EKG 12 Lead (05/20/2023 12:46 PM EDT) Ventricular rate 60 BPM MUSE SYSTEM Atrial Rate 60 BPM MUSE SYSTEM P-R Interval 172 ms MUSE SYSTEM QRS Duration 74 ms MUSE SYSTEM Q-T Interval 472 ms MUSE SYSTEM QTC Calculated (Bezet) 472 ms MUSE SYSTEM Calculated P [place] 16 degrees MUSE SYSTEM Calculated R [place] 14 degrees MUSE SYSTEM Calculated T [place] 63 degrees MUSE SYSTEM INTERPRETATION Sinus rhythm with Premature atrial complexes Nonspecific T wave abnormality Prolonged QT Abnormal ECG When compared with ECG of 05-FEB-2023 10:43, Sinus rhythm has replaced Atrial fibrillation T wave inversion no longer evident in Inferior leads Nonspecific T wave abnormality has replaced inverted T waves in Anterolateral leads QT has lengthened Confirmed by MD Hank, Marilyn ([id number]) on 05/20/2023 3:03:07 PM MUSE SYSTEM 05/20/2023 12:4 6 PM EDT 05/20/2023 3:03 PM EDT Tylor Serna MD ECG ORDERABLES Performing Organization Address City/[facility]/ZIP Co de Phone Number MUSE SYSTEM * CT Angiogram [place] (05/20/2023 12:08 PM EDT) Anatomical [...] who have questions please contact the health home care aide that requested your imaging first. ? Electronically signed by: Jimbo Negron DO, [facility] ??([phone]), at 05/20/2023 12:38 PM Narrative 05/20/2023 12:38 PM EDT EXAMINATION: CT ANGIOGRAM [place] CLINICAL HISTORY: Stroke, follow up new deficits after 3 recent small punctate strokes several days ago pls eval carotid patency TECHNIQUE: CTA of the head performed after the intravenous administration of contrast. Administered 65.0 ml of OMNIPAQUE 350.00 mg/ml. MIP and 3-D volumetric reconstructions were created. COMPARISON: Brain MRI and MRA of the neck and [place] of 05/19/2023, head CT 05/18/2023, [...] artery. Hypoplastic left P1 segment of the LABORER PIE BAKERY noted. There is no large vessel occlusion [...] Negron, DO - 05/20/2023 EXAMINATION: CT ANGIOGRAM [place] CLINICAL HISTORY: Stroke, follow up new deficits after 3 recent small punctate strokes several days ago plseval carotid patency TECHNIQUE: CTA of the head performed after the intravenous administration ofcontrast. Administered 65.0 ml of OMNIPAQUE 350.00 mg/ml. MIP and 3-D volumetric reconstructions were created. COMPARISON: Brain MRI and MRA of the neck and [place] of 05/19/2023, head CT 05/18/2023, [...] artery. Hypoplastic left P1 segment of the LABORER PIE BAKERY noted. There is no large vessel occlusion [...] patients who have questions please contactthe health home care aide that requested your imaging first. Electronically signed by: Jimbo Negron DO, [facility]([phone]), at 05/20/2023 12:38 PM Tylor Serna MD IMG CT ORDERABLES * Scan, Peripheral Blood (05/20/2023 11:55 AM EDT) Plat estimate Normal [facility] RBC Morphology Abnormal [facility] Macrocyte 1-5 /HPF [facility] Blood 05/20/2023 11:5 5 AM EDT 05/20/2023 12:07 PM EDT Narrative Resulting Agency Comment Spec In Lab Tylor Serna MD HEMATOLOGY ORDERABLE S Performing Organization Address City/State/[facility] Co de Phone Number [facility] [place] [address] * Hemoglobin A1c (05/20/2023 11:55 AM EDT) Hemoglobin A1c 5.4 4.3 - 5.6 % [facility] Comment: Reference Range: 4.3 - [...] Mellitus, Diabetes Care 2013; 36: Suppl. 1, V57-25 Estimated Average Glucose See note mg/dL [facility] Comment: Estimated Average Glucose not [...] into estimated average glucose values. ??Diabetes Care 2008:31(8):5867-8952. Blood Venous Draw / Unknown 05/20/2023 11:55 AM EDT 05/20/2023 12:12 PM EDT Narrative Resulting Agency Comment Spec In Lab Tylor Serna MD CHEMISTRY ORDERABLES Performing Organization Address [facility] de Phone Number [facility] [place] [address] * Phosphorus (05/20/2023 11:55 AM EDT) Phosphorus 3.3 2.5 - 4.5 mg/dL [facility] Blood Venous Draw / Unknown 05/20/2023 11:55 AM EDT 05/20/2023 12:07 PM EDT Narrative Resulting Agency Comment Spec In Lab Tylor Serna MD CHEMISTRY ORDERABLES Performing Organization Address [facility] Co de Phone Number [facility] [place] [address] * LDL Cholesterol, Direct (05/20/2023 11:55 AM EDT) LDL Cholesterol, Direct 112 mg/dL [facility] Comment: Lowest Risk: <100 mg/dL Lower Risk: 100-129 mg/dL Borderline High Risk: 130-159 mg/dL High Risk: 160-189 mg/dL Very High Risk: >fs=329 mg/dL Blood Venous Draw / Unknown 05/20/2023 11:55 AM EDT 05/20/2023 12:07 PM EDT Narrative Resulting Agency Comment Spec In Lab Tylor Serna MD CHEMISTRY ORDERABLES [facility] [place] [address] * HDL/Cholesterol Profile (05/20/2023 11:55 AM EDT) [facility] Signature Cholesterol, Total 174 mg/dL [facility] Comment: Lower Risk: <200 mg/dL Average Risk: 200-239 mg/dL Higher Risk: >os=964 mg/dL HDL Cholesterol 47 mg/dL [facility] Comment: Males: ?? Higher Risk: <40 mg/dL Females: ?? Higher Risk: <50 mg/dL Cholesterol/HDL Ratio 3.7 ratio [facility] Chol/HDL Interpretation See Note [facility] Comment: Lipid management should be guided by a patient? s ASCVD risk, goals and preferences. ACC/AHA Guidelines recommend high intensity statin if clinical ASCVD or LDL greater than or equal to 190 mg/dL. http://Scorista.ru.com/FXG-FMM-Uajlmulaq Measure LDL if Total Cholesterol minus HDL Cholesterol is greater than 220 mg/dL. Adults aged 40-75 with LDL 70-189 mg/dL should have their 10 year ASCVD risk estimated with the ACC/AHA ASCVD risk estimator project manager http://tools.acc.org/SRATM-Rpei-Kkvwsdegx/ Statin should be discussed if risk greater [...] In Lab Tylor Serna MD CHEMISTRY ORDERABLES [facility] [place] [address] * Magnesium (05/20/2023 11:55 AM EDT) Pathologist [facility] Magnesium 0.91 0.69 - 1.07 mmol/L [facility] Blood Venous Draw / Unknown 05/20/2023 11:55 AM EDT 05/20/2023 12:07 PM EDT Narrative Resulting Agency Comment Spec In Lab Tylor Serna MD CHEMISTRY ORDERABLES Performing Organization Address [facility] Co de Phone Number [facility] [place] [address] * Hepatic Function Panel (05/20/2023 11:55 AM EDT) [facility] Protein, Total 7.9 6.1 - 8.0 g/dL [facility] Albumin 4.5 3.2 - 5.2 g/dL [facility] Aspartate Aminotransferase 22 0 - 39 unit/L [facility] Alanine Aminotransferase 22 0 - 55 unit/L [facility] Alkaline Phosphatase 92 40 - 130 unit/L [facility] Bilirubin, Total 1.2 0.2 - 1.3 mg/dL [facility] Bilirubin, Direct 0.2 0.0 - 0.3 mg/dL [facility] Blood Venous Draw / Unknown 05/20/2023 11:55 AM EDT 05/20/2023 12:07 PM EDT Narrative Resulting Agency Comment Spec In Lab Tylor Serna MD CHEMISTRY ORDERABLES Performing Organization Address City/[facility]/ZIP Co de Phone Number [facility] [place] [address] * (ABNORMAL) Differential, Automated (05/20/2023 11:55 AM EDT) Neutrophil % 57.5 % [facility] Neutrophil Absolute 6.11(H) 1.70 - 6.10 x10(3)/mc L [facility] Lymph % 12.1 % [facility] Lymphocytes Abs 1.3 0.9 - 3.2 x10(3)/mc L [facility] Monocyte % 5.7 % [facility] Monocyte Abs 0.6 0.3 - 0.9 x10(3)/ L [facility] Eos % 23.8 % [facility] Eosinophils Abs 2.5(H) 0.0 - 0.4 x10(3)/ L [facility] Basophil % 0.7 % [facility] Baso Absolute 0.1 0.0 - 0.1 x10(3)/mc L [facility] Immature Gran % 0.20 % [facility] Comment: Immature granulocytes(IG's)percentage and absolute count will include metamyelocytes, myelocytes, and promyelocytes. Blood smears from CBCs yielding IG's will be scanned manually for concordance. If this scan disagrees with the automated IG or if promyelocytes are noted, a manual differential will be performed. Immature Gran Absolute 0.02 0.00 - 0.04 x10(3)/ L [facility] Blood 05/20/2023 11:5 5 AM EDT 05/20/2023 12:07 PM EDT Narrative Resulting Agency Comment Spec In Lab Tylor Serna MD HEMATOLOGY ORDERABLE S [facility] [place] [address] * (ABNORMAL) Hemogram (05/20/2023 11:55 AM EDT) White Blood Cell 10.6(H) 4.0 - 9.5 x10(3)/mc L [facility] Red Blood Cell 4.73 4.58 - 5.54 x10(6)/mc L [facility] Hemoglobin 15.2 13.7 - 16.5 g/dL [facility] Hematocrit 45.0 40.5 - 48.5 % [facility] Mean Cell Volume 95.1(H) 82.9 - 93.1 fL [facility] Mean Cell Hemoglobin 32.1 27.5 - 32.1 pg [facility] Mean Cell Hemoglobin Concentration 33.8 32.0 - 35.7 g/dL [facility] Platelet 248 145 - 357 x10(3)/mc L [facility] RDW Standard Deviation 48.2(H) 36.0 - 45.0 fL [facility] RDW coefficient of variation 13.8 11.4 - 13.8 % [facility] Mean Platelet Volume 10.9 7.6 - 12.9 fL [facility] NRBC% auto 0.0 % [facility] NRBC Absolute 0.000 0.000 - 0.000 x10(3)/mc L [facility] Blood 05/20/2023 11:5 5 AM EDT 05/20/2023 12:07 PM EDT Narrative Resulting Agency Comment Spec In Lab Tylor Serna MD HEMATOLOGY ORDERABLE S Performing Organization Address City/State/[facility] Co de Phone Number [facility] [place] [address] * Basic Metabolic Panel (non-fasting) (05/20/2023 11:55 AM EDT) Glucose 121 65 - 199 mg/dL [facility] Comment:Diabetes: >=200 mg/d L plus symptoms Blood Urea Nitrogen 17 10 - 20 mg/dL [facility] Creatinine 0.80 0.80 - 1.50 mg/dL [facility] Sodium 140 135 - 145 mmol/L [facility] Potassium 4.4 3.5 - 5.0 mmol/L [facility] Comment: Please note: ??Patients with WBC >100,000 may have falsely elevated Potassium levels. ??For accurate Potassium quantification in these patients send serum separator tube (gold top) for subsequent determinations. ??Contact the Clinical Chemistry Laboratory if there are any questions. Chloride 105 98 - 107 mmol/L [facility] Carbon Dioxide 24 22 - 31 mmol/L [facility] Anion Gap 11 5 - 15 mmol/L [facility] Calcium 10.2 8.5 - 10.5 mg/dL [facility] Est Glomerular Filtration Rate 91 >=60 mL/min/1. 73 m?? [facility] Comment: This patient's estimated GFR was calculated using the 2021 CKD-EPI equation. The estimated GFR can vary [...] Serna MD CHEMISTRY ORDERABLES Performing Organization Address [facility] Co de Phone Number [facility] [place] [address] * Film Library- Storage Only MR Head and Spine (05/19/2023 12:00 AM EDT) Narrative RAD - 05/20/2023 11:33 AM EDT This exam is auto-finalizing. It's purpose is for storage only. Mirna Barrera DO [employer] FILM LIBRARY ORD ERABLES Performing Organization Address [facility] Co de Phone Number [place], [place] * Film Library- Storage Only CT Head (05/18/2023 12:00 AM EDT) Narrative Dicom, Auditing User - 05/20/2023 11:33 AM EDT This exam is auto-finalizing. It's purpose is for storage only. Mirna Barrera DO [employer] FILM LIBRARY ORD ERABLES documented in this [...] Fri05/21/23 at 0900, Until Discontinued, Routine 08 (Given - Provid er: Nayla Collins RN) atorvastatin (Lipitor) tablet 80 mg 80 mg, Oral, EVERY EVENING, First dose on Fri05/20/23 at 1700, Until Discontinued, Routine 1804 (Given - Provider: Jimbo Montoya NRP) lisinopriL (Zestril) tablet 5 mg 5 mg, Oral, DAILY, First dose on Fri05/21/23 at 1000, Until Discontinued, Routine 0947 (Given - Provid er: Nayla Collins RN) [...] sub-optimal echo images, Echo Lab (Intra-Procedure), Routine 112 (Given - Provid er: Shin Erickson) senna-docusate [...] Routine documented in this encounter Care Teams Rehab Therapist Relationship Specialty Start Date End Date Mirna Barrera DO [address] [place] [id number] PCP - General Family Medicine 07/01/18 documented as of this encounter
--- OUTSIDE RECORDS SUMMARY | 2024-09-25 08:41 | XMS_ITS | Encounter Summary ---
Author Organization [facility] [place] [address] Care Team Providers Care Business Machine Operator Name Role Phone Camacho Barrera DO Primary Care Provider [phone] Reason for Visit * Diagnostic Test (Routine) - Closed Specialty Diagnoses / Procedures Referred By Contac t Referred To Contact Cardiology Diagnoses Atrial fibrillation, unspecified type Procedures Ziisaac (EXTERNAL Only) Alan Diaz MD [address] [place] [id number] Referral ID Status Reason Start Date Expiration Date V isits Requested Visits Authorized [id number] Closed Specialty Service Requested 01/20/2023 01/20/2024 1 1 Encounter Details Date Type Department Care Team (Latest Contact Info) Description 01/20/2023 8:00 AM EST Ancillary Procedure Cardiology at [facility] [address] [place] [address] Alna Diaz MD Atrial fibrillation, unspecified type Social [...] from the original result were not included. [facility] ? 'Zio Patch' Ambulatory Cardiac Event Monitor [...] Ectopic beats Isolated VEs were occasional (1.1%, [id number]), VE Couplets were rare (<1.0%, 77), and [...] above. Alan Diaz MD CARDIAC SERVICES ORD ERABLES documented in this encounter Visit Diagnoses Diagnosis Atrial fibrillation, unspecified type documented in this encounter Care Teams Business Machine Operator Relationship Specialty Start Date End Date Camacho Barrera DO [address] [place] [address] PCP - General Family Medicine 07/01/18 documented as of this encounter
--- OUTSIDE RECORDS SUMMARY | 2024-09-25 08:41 | XMS_ITS | Encounter Summary ---
Author Organization [place] [address] Care Team Providers Care Slime Plant Operator Name Role Phone Camacho Barrera DO Primary Care Provider [phone] Encounter Details Date Type Department Care Team (Late st Contact Info) Description 07/01/2022 8:20 AM EDT Office Visit Cardiology at [address] [address] Kenny Nelson MD [facility] [place] [address] Atrial fibrillation, unspecified type Social History Tobacco [...] 07/01/2022 8:20 AM EDT Cardiac Electrophysiology Clinic?? [place] Office?? July 01, 2022 (last visit October 09, 2020) ?? Wrapping Machine Helper:??Ant Suarez MD -> consider Dr. 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 Symptom-felix, he had some exertinal shortness of breath [...] and pre-ablation was prolonged at??>190??ms (the sinusrhythm WI interval); the post-ablation sinus rhythm P wave duration was??>190??ms (the sinus rhythm WI interval). > Off amiodarone ??2) ??Coronary artery [...] ?? 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) ?? Family History: Brother (Alzheimer's disease) ?? [...] Pulses present. Neurological: Grossly intact. ?? Tests: Redux Monitor (June 20, 2021; analyzed 11 days [...] 6.3% burden of supraventricular ectopy were detected. Redux Monitor (August 27, 2020; analyzed 7 days [...] ~12% burden of ventricular ectopy were detected. Redux Monitor??(December 21, 2018; analyzed 13 days 21??hours): [...] (possibly Dr. Torres, who also goes up [facility] each month) re: discuss mapping and ablation [...] type documented in this encounter Care Teams Slime Plant Operator Relationship Specialty Start Date End Date Camacho Barrera DO [address] [place] [address] PCP - General Family Medicine 07/01/18 documented as of this encounter
--- OUTSIDE RECORDS SUMMARY | 2024-09-25 08:41 | XMS_ITS | Encounter Summary ---
Author Organization [facility] [place] [address] Care Team Providers Care Miller Kiln Dried Salt Name Role Phone Camacho Barrera DO Primary Care Provider [phone] Encounter Details Date Type Department Care Team (Late st Contact Info) Description 07/31/2022 Orders Only Cardiology at [address] [address] Harriett Badillo APRN [facility] [place] [address] Persistent atrial fibrillation Social History Tobacco Use [...] EDT) Magnesium 0.87 0.69 - 1.07 mmol/L [facility] Blood 08/28/2022 8:23 AM EDT 08/28/2022 8:37 AM EDT Narrative Resulting Agency Comment Spec In Lab Harriett Badillo INSIDE SALES CONSULTANT CHEMISTRY ORDERABLES [facility] [place] [address] * Basic Metabolic Panel (non-fasting) (08/28/2022 8:23 AM EDT) Glucose 124 65 - 199 mg/dL [facility] Comment:Diabetes: >=200 mg/d L plus symptoms Blood Urea Nitrogen 15 10 - 20 mg/dL [facility] Creatinine 1.00 0.80 - 1.50 mg/dL [facility] Sodium 141 135 - 145 mmol/L [facility] Potassium 4.4 3.5 - 5.0 mmol/L [facility] Comment: Please note: ??Patients with WBC >100,000 may have falsely elevated Potassium levels. ??For accurate Potassium quantification in these patients send serum separator tube (gold top) for subsequent determinations. ??Contact the Clinical Chemistry Laboratory if there are any questions. Chloride 103 98 - 107 mmol/L [facility] Carbon Dioxide 27 22 - 31 mmol/L [facility] Anion Gap 11 5 - 15 mmol/L [facility] Calcium 10.1 8.5 - 10.5 mg/dL [facility] Est Glomerular Filtration Rate 78 >=60 mL/min/1. 73 m?? [facility] Comment: This patient's estimated GFR [...] In Lab Harriett Badillo APRN CHEMISTRY ORDERABLES [facility] [place] [address] documented in this encounter Visit Diagnoses Diagnosis Persistent atrial fibrillation Atrial fibrillation documented in this encounter Care Teams Miller Kiln Dried Salt Relationship Specialty Start Date End Date Camacho Barrera DO [address] [facility] [place] [address] PCP - General Family Medicine 07/01/18 documented as of this encounter
--- OUTSIDE RECORDS SUMMARY | 2024-09-25 08:41 | XMS_ITS | Encounter Summary ---
[place] [address] Care Team Providers Care Community Life Director Name Role Phone Camacho Barrera DO Primary Care Provider [phone] Encounter Details Date Type Department Care Team (Late st Contact Info) Description 10/03/2021 11:00 AM EDT Office Visit Cardiology at [address] [address] Kenny Nelson MD [facility] [place] [address] Bell Fairbanks MD [facility] [address] Paroxysmal atrial fibrillation Social History Tobacco Use [...] Fairbanks MD - 10/03/2021 11:00 AM EDT [facility] REFERRING PROVIDER: Camacho Barrera, [address] [place] [id number] PRIMARY CARE PROVIDER: Camacho Barerra DO [address] [place] [id number] PATIENT PROFILE: Camacho Flores is a 75 [...] 89 with mild presyncope. He presented to [facility] and ECG confirmed AF and he was started on amiodarone 800 mg daily for several days (Dr. Tohmas). The next day, he was in sinus [...] W/SCAN performed by Jose Small MD at [facility] MAIN OR ??? PRO STEREOTACTIC CPTR ASSTD PX CRANIAL, INTRADURAL Right 01/27/2015 STEREOTACTIC COMPUTER-ASSTD NAVIGATIONAL CRANIAL INTRADURAL performed by Jose Small MD at [facility] MAIN OR FAMILY HISTORY: Family History [...] [facility], lives with in [facility]. [...] were as follows: sinus bradycardia 50 bpm TX 172, QRS duration 80, and corrected QT [...] prolonged at >190 ms (the sinus rhythm TX interval); the post-ablation sinus rhythm P wave duration was >190 ms (the sinus rhythm TX interval). Laboratory Data: Lab Results Component Value [...] presents for AFib follow up today. His [id number] is 2, he is on xarelto and [...] (Bezet) 453 ms MUSE SYSTEM Calculated P [place] 58 degrees MUSE SYSTEM Calculated R [place] 64 degrees MUSE SYSTEM Calculated T [place] 105 degrees MUSE SYSTEM INTERPRETATION Sinus bradycardia with sinus arrhythmia Low voltage QRS Nonspecific T wave abnormality Abnormal ECG When compared with ECG of 09-OCT-2020 11:49, Premature ventricular complexes are no longer Present T wave inversion no longer evident in Lateral leads Confirmed by MD Jose, Marcellus ([id number]) on 10/03/2021 2:05:09 PM MUSE SYSTEM 10/03/2021 11:1 6 AM EDT 10/03/2021 2:05 PM EDT Kenny Nelson MD ECG ORDERABLES [place] SYSTEM documented in this encounter Visit Diagnoses Diagnosis Paroxysmal atrial fibrillation Atrial fibrillation documented in this encounter Care Teams Community Life Director Relationship Specialty Start Date End Date Camacho Barrera DO [address] [facility] [place] [address] PCP - General Family Medicine 07/01/18 documented as of this encounter
--- OUTSIDE RECORDS SUMMARY | 2024-09-25 08:41 | XMS_ITS | Encounter Summary ---
[place] [address] Care Team Providers Care Frame Trimmer Name Role Phone Camacho Barrera DO Primary Care Provider [phone] Encounter Details Date Type Department Care Team (Late st Contact Info) Description 06/25/2022 Orders Only Cardiology at [address] [address] Kenny Nelson MD [facility] [place] [address] Paroxysmal atrial fibrillation Social History Tobacco Use [...] fibrillation documented in this encounter Care Teams Frame Trimmer Relationship Specialty Start Date End Date Camacho Barrera DO [address] [place] [address] PCP - General Family Medicine 07/01/18 documented as of this encounter
--- OUTSIDE RECORDS SUMMARY | 2024-09-25 08:41 | XMS_ITS | Encounter Summary ---
Author Organization [facility] [place] [address] Care Team Providers Care Library Acquisitions Technician Name Role Phone Camacho Barrera DO Primary Care Provider [phone] Encounter Details Date Type Department Care Team (Late st Contact Info) Description 05/19/2023 Ancillary Procedure Radiology Library at [facility] [address] Social History Tobacco Use Types Packs/Day Years [...] and Spine (05/19/2023 12:00 AM EDT) Narrative TAI GUO - 05/20/2023 11:33 AM EDT This exam is auto-finalizing. It's purpose is for storage only. Camacho Barrera DO [facility] FILM LIBRARY ORD ERABLES [place], [place] documented in this encounter Visit Diagnoses Not on filedocumented in this encounter Care Teams Library Acquisitions Technician Relationship Specialty Start Date End Date Camacho Barrera DO [address] [place] [address] PCP - General Family Medicine 07/01/18 documented as of this encounter
--- OUTSIDE RECORDS SUMMARY | 2024-09-25 08:41 | XMS_ITS | Encounter Summary ---
Author [place] [address] Care Team Providers Care Ophthalmic Medical Technician Name Role Phone Camacho Barrera DO Primary Care Provider [phone] Encounter Details Date Type Department Care Team (Late st Contact Info) Description 10/02/2021 Orders Only Cardiology at [address] [address] Kenny Nelson MD [facility] [place] [address] Paroxysmal atrial fibrillation Social History Tobacco Use [...] fibrillation documented in this encounter Care Teams Ophthalmic Medical Technician Relationship Specialty Start Date End Date Camacho Barrera DO [address] [place] [address] PCP - General Family Medicine 07/01/18 documented as of this encounter
--- OUTSIDE RECORDS SUMMARY | 2024-09-25 08:41 | XMS_ITS | Encounter Summary ---
[place] [address] Care Team Providers Care Senior Staff Accountant Name Role Phone Camacho Barrera DO Primary Care Provider [phone] Encounter Details Date Type Department Care Team (Late st Contact Info) Description 10/09/2020 Orders Only Cardiology at [address] [address] Mikayla Lemus RN Paroxysmal atrial fibrillation Social [...] (Bezet) 437 ms MUSE SYSTEM Calculated P [place] 58 degrees MUSE SYSTEM Calculated R [place] 31 degrees MUSE SYSTEM Calculated T [place] 143 degrees MUSE SYSTEM INTERPRETATION Sinus rhythm [...] fibrillation documented in this encounter Care Teams Senior Staff Accountant Relationship Specialty Start Date End Date Camacho Barrera DO [address] [place] [address] PCP - General Family Medicine 07/01/18 documented as of this encounter
--- OUTSIDE RECORDS SUMMARY | 2024-09-25 08:41 | XMS_ITS | Encounter Summary ---
Author Organization [facility] [place] [address] Care Team Providers Care Identity Access Management Architect Name Role Phone Camacho Barrera DO Primary Care Provider [phone] Reason for Visit * Auth/Cert Specialty Diagnoses / Procedures Referred By Contac t Referred To Contact Diagnoses Other persistent atrial fibrillation atrial fibrillation Procedures PRO CARDIOVERSION ELECTIVE ARRHYTHMIA EXTERNAL CARDIOVERSION-ELECTIVE (WRVU 2.25) Fred Maki MD [facility] [place] [address] [facility] Referral ID Status Reason Start Date Expiration Date Visits Re quested Visits Authorized [id number] 1 1 Encounter Details Date Type Department Care Team (Late st Contact Info) Description 08/28/2022 9:30 AM EDT Office Visit Cardiology at [address] [address] [facility] [place] [address] Persistent atrial fibrillation Social History Tobacco Use [...] EDT Pulse 115 08/28/2022 9:06 AM EDT PHARMACY CARE COORDINATOR notified Temperature - - Respiratory Rate - - Oxygen Saturation 100% 08/28/2022 9:0 6 AM EDT Inhaled Oxygen Concentration - - Weight 97.1 kg (214 lb 1.6 oz) 08/28/2022 9:06 AM EDT Height 188 cm (6' 2) 08/28/2022 9:06 AM EDT patient reported Body Mass Index 27.49 08/28/2022 9:06 AM EDT documented in this encounter Progress Notes * Harriett Badillo, PHARMACY CARE COORDINATOR - 08/28/2022 9:30 AM EDT Day of [...] plan for Dr. Torres to follow in [place] to discuss ablation. He did well after [...] after 3rd dose July 2018), previous amiodarone [id number]. Previous ablation: Oct 2018 Dr. Nelson PVI, [...] disease) Overview Note: PCI in 2005 at [facility]: stents to LAD x2, LCx x2, ramus [...] typical atrial flutter noted on ECG today. [id number] Score is 4 (HTN-1, Age-2, Vasc-1), with [...] up with Dr. Torres Sep 11 in [place] will be dependent on the results of the cardioversion. I appreciate the opportunity to be involved with Tomas's care. Please do not hesitate to contact EP with any further questions (pager [phone]). Harriett Badillo APRN Pager: [phone] documented in this encounter Plan of Treatment [...] (Bezet) 449 ms MUSE SYSTEM Calculated P [place] 111 degrees MUSE SYSTEM Calculated R [place] 53 degrees MUSE SYSTEM Calculated T [place] -15 degrees MUSE SYSTEM INTERPRETATION Atrial flutter with 2:1 A-V conduction Nonspecific T wave abnormality Abnormal ECG When compared with ECG of 01-JUL-2022 08:48, No significant change was found Confirmed by MD Mckinney Danette ([id number]) on 08/28/2022 3:47:35 PM MUSE SYSTEM 08/28/2022 9:14 AM EDT 08/28/2022 3:47 PM EDT Harriett Badillo APRN ECG ORDERABLES MUSE SYSTEM documented in this encounter Visit Diagnoses Diagnosis Persistent atrial fibrillation Atrial fibrillation documented in this encounter Care Teams Identity Access Management Architect Relationship Specialty Start Date End Date Camacho Barrera DO [address] [facility] [place] [address] PCP - General Family Medicine 07/01/18 documented as of this encounter
--- OUTSIDE RECORDS SUMMARY | 2024-09-25 08:41 | XMS_ITS | Encounter Summary ---
Author [place] [address] Care Team Providers Care State Archivist Name Role Phone Camacho Barrera DO Primary Care Provider [phone] Reason for Visit * Reason Onset Date Comments Medication Refill 06/16/2021 Encounter Details Date Type Department Care Team (Late st Contact Info) Description 06/16/2021 Refill Cardiology at [address] [address] Kenny Nelson MD [facility] [place] [address] Medication Refill Social History Tobacco Use Types [...] fibrillation documented in this encounter Care Teams State Archivist Relationship Specialty Start Date End Date Camacho Barrera DO [address] [place] [address] PCP - General Family Medicine 07/01/18 documented as of this encounter
--- OUTSIDE RECORDS SUMMARY | 2024-09-25 08:41 | XMS_ITS | Encounter Summary ---
[place] [address] Care Team Providers Care 5Th Grade Teacher Name Role Phone Camacho Barrera DO Primary Care Provider Encounter Details Date Type Department Care Team (Late st Contact Info) Description 05/07/2023 [place] [address] Gregorio Beasley MD [facility] [place] [address] Social History Tobacco Use Types Packs/Day Years [...] PM Referring Provider: Dr. Ewing Patient Location: [facility] Contacted by [facility] ED for cardiology consultation. [...] changes in the patient condition. Gregorio Beasley Packer Inspector [id number] documented in this encounter Plan of Treatment Not on file documented as of this encounter Visit Diagnoses Not on filedocumented in this encounter Care Teams 5Th Grade Teacher Relationship Specialty Start Date End Date Camacho Barrera DO [address] [place] [address] PCP - General Family Medicine 07/01/18 documented as of this encounter
--- OUTSIDE RECORDS SUMMARY | 2024-09-25 08:42 | XMS_ITS | Encounter Summary ---
[place] [address] Care Team Providers Care Radiographer Technologist Name Role Phone Camacho Barrera DO Primary Care Provider [phone] Reason for Visit * Reason Onset Date Comments Medication Refill 08/18/2018 amiodarone Encounter Details Date Type Department Care Team (Late st Contact Info) Description 08/18/2018 Refill Cardiology at [address] [phone] Kellee Fox, reheater helper Refill (amiodarone) Social History Tobacco Use Types [...] EDT Pt calling to report that the [facility] has not received the prescription for the amiodarone yet and would like it called in. Multiple calls placed to the [facility] pharmacy, no answer. Pt contacted and reports that they must have gotten the order because they have given his some to get him started tonight. Message forwarded to Dr Nguyen to e-scribe the prescription so the pharmacy has the original prescription. * Telephone Encounter - Kellee Fox RN - 08/18/2018 4:19 PM EDT We were notified that the [facility] pharmacy does not have amiodarone in stock for outpatients. The amiodarone prescription has [place] [facility] [facility] [place] New prescription prepared and pended for Dr. Celaya's review/signature/e-scribing. documented in this encounter Plan of Treatment Not on file documented as of this encounter Visit Diagnoses Not on filedocumented in this encounter Care Teams Radiographer Technologist Relationship Specialty Start Date End Date Camacho Barrera DO [address] [place] [address] PCP - General Family Medicine 07/01/18 documented as of this encounter
--- OUTSIDE RECORDS SUMMARY | 2024-09-25 08:42 | XMS_ITS | Encounter Summary ---
[place] [address] Care Team Providers Care Handstitching Machine Collar Feller Name Role Phone Camacho Barrera DO Primary Care Provider [phone] Reason for Visit * Reason Onset Date Comments Questions 10/14/2018 Encounter Details Date Type Department Care Team (Late st Contact Info) Description 10/14/2018 Telephone Cardiology at [address] [address] Maria E Haque, RN Questions [...] (Xray of spine & sonogram) done at [facility]. Will request those records. documented in this encounter Plan of Treatment Not on file documented as of this encounter Visit Diagnoses Not on filedocumented in this encounter Care Teams Handstitching Machine Collar Feller Relationship Specialty Start Date End Date Camacho Barrera DO [facility] [place] [address] PCP - General Family Medicine 07/01/18 documented as of this encounter
--- OUTSIDE RECORDS SUMMARY | 2024-09-25 08:42 | XMS_ITS | Encounter Summary ---
[place] [address] Care Team Providers Care Carpet Yarn Winder Operator Name Role Phone Camacho Barrera DO Primary Care Provider Encounter Details Date Type Department Care Team (Late st Contact Info) Description 09/14/2020 Telephone Cardiology at [address] [phone] Giles Moreno RN Social History Tobacco Use [...] on filedocumented in this encounter Care Teams Carpet Yarn Winder Operator Relationship Specialty Start Date End Date Camacho Barrera DO [address] [place] [address] PCP - General Family Medicine 07/01/18 documented as of this encounter
--- OUTSIDE RECORDS SUMMARY | 2024-09-25 08:42 | XMS_ITS | Encounter Summary ---
[place] [address] Care Team Providers Care Healthcare Administration Internship Name Role Phone Camacho Barrera DO Primary Care Provider [phone] Reason for Referral * Diagnostic Test (Routine) - Closed Specialty Diagnoses / Procedures Referred By Contac t Referred To Contact Cardiology Diagnoses Paroxysmal atrial fibrillation Procedures Kenny Mcadams MD [facility] [place] [address] [facility] [place] [address] Referral ID Status Reason Start Date Expiration Date V isits Requested Visits Authorized [id number] Closed Specialty Service Requested 08/23/2020 02/20/2021 1 1 Reason for Visit * Diagnostic Test (Routine) - Closed Specialty Diagnoses / Procedures Referred By Contac t Referred To Contact Cardiology Diagnoses Paroxysmal atrial fibrillation Procedures Kenny Mcadams MD [facility] [place] [address] [facility] [place] [address] Referral ID Status Reason Start Date Expiration Date V isits Requested Visits Authorized [id number] Closed Specialty Service Requested 08/23/2020 02/20/2021 1 1 Encounter Details Date Type Department Care Team (Latest Contact Info) Description 08/24/2020 10:30 AM EDT - 08/24/2020 11:59 PM EDT Hospital Encounter Non-Invasive Cardiology Lab [address] [place] [address] Kenny Nelson MD [facility] [place] [address] Paroxysmal atrial fibrillation Discharge Disposition: Home Social [...] detected. ____ Interpreted by Kenny Nelson MD, [facility] Kenny Nelson MD CARDIAC SERVICES ORD ERABLES documented in this encounter Visit Diagnoses Diagnosis Paroxysmal atrial fibrillation Atrial fibrillation documented in this encounter Care Teams Healthcare Administration Internship Relationship Specialty Start Date End Date Camacho Barrera DO [address] [place] [address] PCP - General Family Medicine 07/01/18 documented as of this encounter
--- OUTSIDE RECORDS SUMMARY | 2024-09-25 08:42 | XMS_ITS | Encounter Summary ---
Author Organization [facility] [place] [address] Care Team Providers Care Sonar Technician Name Role Phone Camacho Barrera DO Primary Care Provider [phone] Encounter Details Date Type Department Care Team (Late st Contact Info) Description 08/18/2018 9:00 AM EDT Office Visit Cardiology at [address] [address] Komal Nguyen MD [facility] [address] Steve Celaya DO [facility] [address] Persistent atrial fibrillation Social History Tobacco Use [...] Follow Up Patient ID Camacho Flores [id number] Camacho Flores is referred to the EP clinic by inpatient cardiology service / is following up [facility] clinic History Mr. 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 Family History Family History Problem Relation [...] with lightheadedness, dizziness, gait instability. His inpatient keypuncher shows himin rate controlled AF and relative [...] Protein, Total 6.7 6.1 - 8.0 gm/dL [facility] Albumin 3.9 3.2 - 5.2 gm/dL [facility] Aspartate Aminotransferase 19 0 - 39 unit/L [facility] Alanine Aminotransferase 37 0 - 55 unit/L [facility] Alkaline Phosphatase 80 40 - 120 unit/L [facility] Bilirubin, Total 0.5 0.2 - 1.3 mg/dL [facility] Bilirubin, Direct 0.1 0.0 - 0.3 mg/dL [facility] Blood specimen (specimen) 08/18/2018 10:42 AM EDT 08/18/2018 10:58 AM EDT Narrative Resulting Agency Comment Spec In Lab Komal Nguyen MD CHEMISTRY ORDERABLES [facility] [place] [address] * EKG 12 Lead (08/18/2018 9:06 AM EDT) Ventricular rate 59 BPM MUSE SYSTEM Atrial Rate 340 BPM MUSE SYSTEM QRS Duration 74 ms MUSE SYSTEM Q-T Interval 410 ms MUSE SYSTEM QTC Calculated (Bezet) 405 ms MUSE SYSTEM Calculated R [place] 33 degrees MUSE SYSTEM Calculated T [place] 68 degrees MUSE SYSTEM INTERPRETATION Atrial fibrillation [...] AM EDT Komal Nguyen MD ECG ORDERABLES MUSE SYSTEM documented in this encounter Visit Diagnoses Diagnosis Persistent atrial fibrillation Atrial fibrillation Persistent atrial fibrillation Atrial fibrillation documented in this encounter Care Teams Sonar Technician Relationship Specialty Start Date End Date Camacho Barrera DO [address] [place] [address] PCP - General Family Medicine 07/01/18 documented as of this encounter
--- OUTSIDE RECORDS SUMMARY | 2024-09-25 08:42 | XMS_ITS | Encounter Summary ---
Author Organization Formerly [facility] [place] [address] Care Team Providers Care Household Appliance Repairer Name Role Phone Camacho Barrera DO Primary Care Provider [phone] Reason for Visit * Auth/Cert Specialty Diagnoses [...] Expiration Date Visits Re quested Visits Authorized [id number] 1 1 Encounter Details Date Type Department Care Team (Latest Contact Info) Description 10/20/2018 6:12 AM EST - 10/21/2018 1:06 PM [facility] Hospital Encounter Inter[place] [address] Kenny Nelson MD [facility] [place] [address] [address] Discharge Disposition: Home Social History Tobacco Use [...] of any new medications [facility] at [facility]. The patient should be aware and [...] or the Cardiac Electrophysiology Service Triage Nurse ([phone]). General Instructions None Provider Contact Information: Cardiac Electrophysiology [phone] Discharge References/Attachments: Discharge References/Attachments None For questions regarding this document or issues relating to this hospitalization on the Medical Service, please contact your inpatient physician through the [facility] Seed Sales Manager . Issues afterhours and on weekends will [...] of any new medications [facility] at [facility]. The patient should be aware and [...] or the Cardiac Electrophysiology Service Triage Nurse ([phone]). * Attachments The following attachments cannot be sent through Care Everywhere. * EPS (ELECTROPHYSIOLOGY STUDY) AND CATHETER ABLATION: POST-OP (DOMINICAN) documented in this encounter Medications at Time [...] orders. Pt's second void was yellow (per CANVAS BASTER). All procedure access sites are CDI, soft. [...] confirm that they would be open to hand picker medications. * Miguel De Los Santos PA [...] in three months Provider: GAGE Aldridge Provider#: [id number] Consult attending physician: Natasha Avilez MD documented in this encounter H&P Notes * Steve Celaya DO - 10/20/2018 7:17 AM EST Camacho Flores [id number] 10/20/2018 72 y.o. Admission History and Physical [...] role; services accepted. Admission order reviewed: # [id number] Date :10/20/2018 Attending of Record upon admission:Leslie [...] are not an issue [address] [facility] [address] Social & Family Supports/Community Resources: Extended Emergency Contact Information Primary Emergency Contact: Kisha Flores Address: [address] [facility] [place] [address] [facility] Mobile Relation: Spouse Secondary Emergency Contact: Michelle Giron [facility] Relation: Child Behavioral Health History: n/a Substance [...] Type: *No Product type* / Secondary Insurance: [employer] [facility] Prescription Coverage: yes Preferred Pharmacy: [id number] - [facility], [place] - [address] [place] [address] [facility] - [place] - [facility] [address] Other: Primary Care Provider: Camacho Barrera DO [phone] Patient/Caregiver Goals of Treatment: discharge to home [...] Outcome: Ongoing (Interventions Implemented as Appropriate) 10/20/18209910/21/18 041 Plan of Care Review Progress -- progress [...] Operative Note Patient Name: Camacho Flores : [id number] MR#: [id number] Case Date: 10/20/2018 Surgeon: Surgeon(s) and Role: [...] 8 days ago Weight (kilograms) : 97.5 [id number] Score : 3 Method: The procedural attending [...] rate of 2500 units/hour. The short 8 Eritrean sheaths in the right femoral vein were [...] of 1030 milliseconds (ms) were as follows: VT: 190 ms (P wave duration at least 190 ms) AH: 60 ms HV: 60 ms QRS: 80 ms QT: 450 ms 2) Atrial overdrive pacing (10 mA @ 2 ms) was accomplished from the proximal- most bipole in the coronary sinus (CS), and the atrioventricular (AV) Wenckebach block CL was observed at 520 ms. There was no pre-excitation or conduction aberrancy identified. The [id number] < QRS-QRS just prior to the observed [...] Left Atrial Anatomy and Mapping: A CARTO Sylvan Source ThermoCool SF 8 Fr ablation catheter with [...] delivering up to 30-35 [place] [address] Joules along this 12.2 cm septal segment [...] after the delivery of a total of [id number] Joules during 26:46 m:s of actual ablation [...] and ablation revealed early activations along the [id number] right lorna,as well as higher within the [...] iCTI ablation trajectory at ~6:00 in the ROMANIAN view. This was a relatively long ablation [...] low intensity setting, biplane Dose Area Product: 92818 cGy.cm2 Cumulated Dose: 1120 mGy Total Radiofrequency Energy Delivered: [id number] Joules Total Actual Ablation Time: 54:41 m:s [...] prolonged at >190 ms (the sinus rhythm VT interval); the post-ablation sinus rhythm P wave duration was >190 ms (the sinus rhythm VT interval). ____ Dr. Nelson was present, and [...] EST) pH, POC 7.39 7.35 - 7.45 [facility] pCO2, POC 41 35 - 45 mmHg [facility] pO2, POC 199(H) 85 - 104 mmHg [facility] Base Excess, POC 0.0 -3.0 - 3.0 mmol/L [facility] Bicarbonate, POC 25.3 20.0 - 26.0 mmol/L [facility] Sodium, POC 139 135 - 145 mmol/L [facility] POC Potassium 4.9 3.5 - 5.0 mmol/L [facility] Ionized Calcium, POC 1.21 1.15 - 1.33 mmol/L [facility] POC Hematocrit 37.0(L) 40.0 - 51.0 % [facility] POC Calc Hgb 12.6(L) 13.7 - 17.5 gm/dL [facility] Comment:The calculation of h emoglobin from hematocrit assumes a normal MCHC. POC Bgas Loc CC LAB [facility] Blood specimen (specimen) 10/20/2018 12:29 PM EST 10/23/2018 11:05 AM EST Kenny Nelson MD CHEMISTRY ORDERABLES [facility] [place] [address] * Scan, Peripheral Blood (10/20/2018 6:46 AM EST) Pathologist [facility] Plat estimate Normal [facility] RBC Morphology Normal [facility] Blood specimen (specimen) 10/20/2018 6:46 AM EST 10/20/2018 7:00 AM EST Narrative Resulting Agency Comment Spec In Lab Steve Celaya DO HEMATOLOGY ORDERABLE S Performing Organization Address [facility] [[email or web address]] Co de Phone Number [facility] [place] [address] * (ABNORMAL) Differential, Automated (10/20/2018 6:46 AM EST) [facility] Neutrophil % 37.7 % [facility] Neutrophil Absolute 5.06 1.70 - 6.10 x10(3)/mc L [facility] Lymph % 11.3 % [facility] Lymphocytes Abs 1.5 0.9 - 3.2 x10(3)/mc L [facility] Monocyte % 6.0 % [facility] Monocyte Abs 0.8 0.3 - 0.9 x10(3)/mc L [facility] Eos % 44.4 % [facility] Eosinophils Abs 6.0(H) 0.0 - 0.4 x10(3)/mc L [facility] Basophil % 0.4 % [facility] Baso Absolute 0.1 0.0 - 0.1 x10(3)/mc L [facility] Immature Gran % 0.20 % [facility] Comment: Immature granulocytes(IG's)percentage and absolute count will include metamyelocytes, myelocytes, and promyelocytes. Blood smears from CBCs yielding IG's will be scanned manually for concordance. If this scan disagrees with the automated IG or if promyelocytes are noted, a manual differential will be performed. Immature Gran Absolute 0.03 0.00 - 0.04 x10(3)/mc L [facility] Blood specimen (specimen) 10/20/2018 6:46 AM EST 10/20/2018 7:00 AM EST Narrative Resulting Agency Comment Spec In Lab Steve Celaya DO HEMATOLOGY ORDERABLE S [facility] [place] [address] * (ABNORMAL) Hemogram (10/20/2018 6:46 AM EST) White Blood Cell 13.4(H) 4.0 - 9.5 x10(3)/[facility] Red Blood Cell 4.66 4.58 - 5.54 x10(6)/[facility] Hemoglobin 14.7 13.7 - 16.5 gm/dL [facility] Hematocrit 44.3 40.5 - 48.5 % [facility] Mean Cell Volume 95.1(H) 82.9 - 93.1 fL [facility] Mean Cell Hemoglobin 31.5 27.5 - 32.1 pg [facility] Mean Cell Hemoglobin Concentration 33.2 32.0 - 35.7 gm/dL [facility] Platelet 245 145 - 357 x10(3)/ L [facility] RDW Standard Deviation 47.5(H) 36.0 - 45.0 [facility] RDW coefficient of variation 13.5 11.4 - 13.8 % [facility] Mean Platelet Volume 10.9 7.6 - 12.9 [facility] NRBC% auto 0.0 % [facility] NRBC Absolute 0.000 0.000 - 0.000 x10(3)/ L [facility] Blood specimen (specimen) 10/20/2018 6:46 AM EST 10/20/2018 7:00 AM EST Narrative Resulting Agency Comment Spec In Lab Steve Celaya DO HEMATOLOGY ORDERABLE S Performing Organization Address [facility] de Phone Number [facility] [place] [address] * Prothrombin Time (10/20/2018 6:46 AM EST) Prothrombin Time 12.5 9.4 - 12.5 sec [facility] International Normalization Ratio 1.1 [facility] Comment: An INR <2.0 [...] MD HEMATOLOGY ORDERABLE S Performing Organization Address [facility] de Phone Number [facility] [place] [address] * (ABNORMAL) BMP w/fasting Glucose (10/20/2018 6:46 AM EST) Glucose Fasting 121(H) 65 - 99 mg/dL [facility] Comment: ?Fasting* Glucose Interpretive [...] of Diabetes Mellitus, Position Statement from the [place] [employer]. ??Diabetes Care, Volume 33, Supplement 1, Dec 2009 Blood Urea Nitrogen 20 10 - 20 mg/dL [facility] Creatinine 1.08 0.80 - 1.50 mg/dL [facility] Sodium 142 135 - 145 mmol/L [facility] Potassium 4.7 3.5 - 5.0 mmol/L [facility] Comment: Please note: ??Patients with WBC >100,000 may have falsely elevated Potassium levels. ??For accurate Potassium quantification in these patients send serum separator tube (gold top) for subsequent determinations. ??Contact the Clinical Chemistry Laboratory if there are any questions. Chloride 103 98 - 107 mmol/L [facility] Carbon Dioxide 26 22 - 31 mmol/L [facility] Anion Gap 13 5 - 15 mmol/L [facility] Calcium 9.6 8.5 - 10.5 mg/dL [facility] Est Glomerular Filtration Rate 68 >=60 mL/min/1. 73 m?? [facility] Comment: The eGFR was calculated using the CKD-EPI equation. As with all creatinine based estimates of kidney function, eGFR values calculated with the CKD-EPI equation are not accurate in patients with acute kidney failure, extremes of body mass or the acutely ill. http://[facility]SAnk[facility] eGFR 79 >=60 mL/min/1. 73 m?? [facility] Comment: The eGFR was calculated using the CKD-EPI equation. As with all creatinine based estimates of kidney function, eGFR values calculated with the CKD-EPI equation are not accurate in patients with acute kidney failure, extremes of body mass or the acutely ill. http://[facility] Blood specimen (specimen) 10/20/2018 6:46 AM EST 10/20/2018 7:00 AM EST Narrative Resulting Agency Comment Spec In Lab Komal Nguyen [place] [address] documented in this encounter Visit Diagnoses Diagnosis [...] Routine 0851 (Not Given - Provider: Holly Alexandre, MORIAH - Reason: Patient/family refused) atorvastatin (LIPITOR) tablet 10 mg 10 mg, Oral, DAILY, First dose on Fri10/21/18 at 1700, Until Discontinued, Routine brimonidine (ALPHAGAN) 0.2 % ophthalmic solution 1 drop(Linked Group 1) 1 drop, Both Eyes, 2 TIMES DAILY, First dose on Fri10/21/18 at 0900, Until Discontinued, Routine 0900 (Not Given - Provider: Holly Alexandre, MORIAH - Reason: Medication not available) BUpivacaine (PF) [...] (Intra-Procedure), Routine 1020 (Given - Provider: Munira Kimbrough, MORIAH) lidocaine (XYLOCAINE) 20 mg/mL (2 %) injection 400 mg (COMPLETED) 400 mg (20 mL), Subcutaneous, ONCE, 1 dose, On Fri10/20/18 at 1230, EP (Intra-Procedure), Routine 1040 (Given - Provider: Munira Kimbrough RN) pantoprazole (PROTONIX) tablet 40 mg 40 mg, Oral, 2 TIMES DAILY, First dose on Fri10/20/18 at 2300, Until Discontinued, DO NOT CRUSH OR OPEN 221 (Given - Provider: Elizabeth Viveros RN) 0851 [...] Day of Surgery (Day of Procedure), Routine 0715 (Due)1915 (Given - Provider: Elizabeth Viveros RN) timolol (TIMOPTIC) 0.5 % ophthalmic solution 1 drop(Linked Group 1) 1 drop, Both Eyes, 2 TIMES DAILY, First dose on Fri10/21/18 at 0900, Until Discontinued, Routine 0900 (Not Given - Provider: Holly Alexandre RN - Reason: Medication not available) Continuous Medication Order 10/19/2018 10/20/2018 10/21/2018 furosemide (LASIX) 100 mg in sodium chloride 0.9% 100 mL infusion (CANCELED) 5 mg/hr (5 mL/hr), Intravenous, CONTINUOUS, Starting on Fri10/20/18 at 2300, Until Fri10/21/18 at 0815, For goal 3 liters negative by 6 am, Routine 2219 (New Bag - Provider: Elizabeth Viveros, MORIAH) 0854 (Stopped - Provider: Holly Alexandre RN) PRN Medication Order 10/19/2018 10/20/2018 10/21/2018 [...] Routine documented in this encounter Care Teams Household Appliance Repairer Relationship Specialty Start Date End Date Camacho Barrera DO [address] [place], [place] [address] [address] PCP - General Family Medicine 07/01/18 documented as of this encounter
--- OUTSIDE RECORDS SUMMARY | 2024-09-25 08:42 | XMS_ITS | Encounter Summary ---
[place] [address] Care Team Providers Care Cleat Maker Name Role Phone Camacho Barrera DO Primary Care Provider [phone] Encounter Details Date Type Department Care Team (Late st Contact Info) Description 06/20/2019 External Results [place] [address] Social History Tobacco Use Types Packs/Day Years [...] * Scan Doc: ECG (06/20/2019) Historical Provider MD COULTER MGR SCAN EX T ORDR/RSLT documented in this encounter Visit Diagnoses Not on filedocumented in this encounter Care Teams Cleat Maker Relationship Specialty Start Date End Date Camacho Barrera DO [address] [place] [address] PCP - General Family Medicine 07/01/18 documented as of this encounter
--- OUTSIDE RECORDS SUMMARY | 2024-09-25 08:42 | XMS_ITS | Encounter Summary ---
[place] [address] Care Team Providers Care Independent Video Producer Name Role Phone Camacho Barrera DO Primary Care Provider [phone] Encounter Details Date Type Department Care Team (Late st Contact Info) Description 12/15/2018 Abstract Cardiology at [address] [address] Maria E Haque, RN Social History Tobacco [...] on filedocumented in this encounter Care Teams Independent Video Producer Relationship Specialty Start Date End Date Camacho Barrera DO [address] [place], [place] [id number] PCP - General Family Medicine 07/01/18 documented as of this encounter
--- OUTSIDE RECORDS SUMMARY | 2024-09-25 08:42 | XMS_ITS | Encounter Summary ---
Author Organization [facility] [place] [address] Care Team Providers Care Financial Aids Officer Name Role Phone Camacho Barrera DO Primary Care Provider [phone] Reason for Visit * Reason Onset Date Comments Medication Refill 11/20/2018 Encounter Details Date Type Department Care Team (Late st Contact Info) Description 11/20/2018 Refill Cardiology at [address] [address] Miguel De Los Santos PA [facility] [place] [address] Medication Refill Social History Tobacco Use Types [...] on filedocumented in this encounter Care Teams Financial Aids Officer Relationship Specialty Start Date End Date Camacho Barrera DO [address] [place] [address] PCP - General Family Medicine 07/01/18 documented as of this encounter
--- OUTSIDE RECORDS SUMMARY | 2024-09-25 08:42 | XMS_ITS | Encounter Summary ---
Author Organization [facility] [place] [address] Care Team Providers Care Nurse Orthopaedic Name Role Phone Camacho Barrera DO Primary Care Provider [phone] Reason for Visit * Auth/Cert Specialty Diagnoses [...] Expiration Date Visits Re quested Visits Authorized [id number] 1 1 Encounter Details Date Type Department Care Team (Late st Contact Info) Description 10/20/2018 7:30 AM EST - 10/20/2018 3:30 PM EST Surgery [place] [address] Kenny Nelson MD [facility] [place] [address] ELECTROPHYSIOLOGY PROCEDURE Social History Tobacco Use Types [...] of any new medications initiated at the [facility]. The patient should be aware and [...] or the Cardiac Electrophysiology Service Triage Nurse ([phone]). General Instructions None Provider Contact Information: Cardiac Electrophysiology [phone] Discharge References/Attachments: Discharge References/Attachments None For questions regarding this document or issues relating to this hospitalization on the Medical Service, please contact your inpatient physician through the [facility] Salad Counter Attendant . Issues afterhours and on weekends will [...] of any new medications initiated at the [facility]. The patient should be aware and [...] or the Cardiac Electrophysiology Service Triage Nurse ([phone]). * Attachments The following attachments cannot be sent through Care Everywhere. * EPS (ELECTROPHYSIOLOGY STUDY) AND CATHETER ABLATION: POST-OP (QATARI) documented in this encounter Medications at Time [...] orders. Pt's second void was yellow (per STRETCHER LEVELER OPERATOR). All procedure access sites are CDI, soft. [...] confirm that they would be open to cotton picking machine operator medications. * Miguel De Los Santos PA [...] in three months Provider: GAGE Aldridge Provider#: [id number] Consult attending physician: Natasha Avilez MD documented in this encounter H&P Notes * Steve Celaya DO - 10/20/2018 7:17 AM EST Camacho Flores [id number] 10/20/2018 72 y.o. Admission History and Physical [...] diagnosis, diagnostic and therapeutic treatment plan. Steve Moreno CelayaDO 10/20/2018 documented in this encounter Miscellaneous Notes * Initial Assessments - Jennifer Lovell RN - 10/21/2018 12:43 PM EST Office of Care Management Initial Assessment Jennifer Lovell RN reviewed record and discussed patient with Care Team. Source of Information: Patient and medical record Introduced self/reviewed role; services accepted. Admission order reviewed: # [id number] Date :10/20/2018 Attending of Record upon admission:Leslie [...] not an issue [address] [facility] [address] Social & Family Supports/Community Resources: Extended Emergency Contact Information Primary Emergency Contact: Kisha Flores Address: [address] [place] [address] [facility] Relation: Spouse Secondary Emergency Contact: Michelle Giron [facility] Relation: Child Behavioral Health History: n/a [...] Type: *No Product type* / Secondary Insurance: [facility] Prescription Coverage: yes Preferred Pharmacy: [id number] - [place], [place] - [address] [place], [place] [address] [place] [address] [facility] [address] [place], [place] - [facility] [address] Other: Primary Care Provider: Camacho Barrera DO [phone] Patient/Caregiver Goals of Treatment: discharge to home [...] Operative Note Patient Name: Camacho Flores : [id number] MR#: [id number] Case Date: 10/20/2018 Surgeon: Surgeon(s) and Role: [...] 8 days ago Weight (kilograms) : 97.5 [id number] Score : 3 Method: The procedural attending [...] rate of 2500 units/hour. The short 8 Bengali sheaths in the right femoral vein were [...] of 1030 milliseconds (ms) were as follows: OR: 190 ms (P wave duration at least 190 ms) AH: 60 ms HV: 60 ms QRS: 80 ms QT: 450 ms 2) Atrial overdrive pacing (10 mA @ 2 ms) was accomplished from the proximal- most bipole in the coronary sinus (CS), and the atrioventricular (AV) Wenckebach block CL was observed at 520 ms. There was no pre-excitation or conduction aberrancy identified. The [id number] < QRS-QRS just prior to the observed [...] Left Atrial Anatomy and Mapping: A [employer] ThermoCool SF 8 Fr ablation catheter with [...] delivering up to 30-35 [place] [address] Joules along this 12.2 cm septal segment [...] after the delivery of a total of [id number] Joules during 26:46 m:s of actual ablation [...] and ablation revealed early activations along the ynf-hq-ntywipkfr right lorna,as well as higher within the [...] iCTI ablation trajectory at ~6:00 in the YAKUT view. This was a relatively long ablation [...] low intensity setting, biplane Dose Area Product: 83309 cGy.cm2 Cumulated Dose: 1120 mGy Total Radiofrequency Energy Delivered: 924476 Joules Total Actual Ablation Time: 54:41 m:s [...] prolonged at >190 ms (the sinus rhythm OR interval); the post-ablation sinus rhythm P wave duration was >190 ms (the sinus rhythm OR interval). ____ Dr. Nelson was present, and [...] EST) pH, POC 7.39 7.35 - 7.45 [facility] pCO2, POC 41 35 - [address] [facility] pO2, POC 199(H) 85 - [address] [facility] Base Excess, POC 0.0 -3.0 - 3.0 mmol/L [facility] Bicarbonate, POC 25.3 20.0 - 26.0 mmol/L [facility] Sodium, POC 139 135 - 145 mmol/L [facility] POC Potassium 4.9 3.5 - 5.0 mmol/L [facility] Ionized Calcium, POC 1.21 1.15 - 1.33 mmol/L [facility] POC Hematocrit 37.0(L) 40.0 - 51.0 % [facility] POC Calc Hgb 12.6(L) 13.7 - 17.5 gm/dL [facility] Comment:The calculation of h emoglobin from hematocrit assumes a normal MCHC. POC Bgas Loc CC LAB [facility] Blood specimen (specimen) 10/20/2018 12:29 PM EST 10/23/2018 11:05 AM EST Kenny Nelson MD CHEMISTRY ORDERABLES [facility] [place] [address] * Scan, Peripheral Blood (10/20/2018 6:46 AM EST) Plat estimate Normal [facility] RBC Morphology Normal [facility] Blood specimen (specimen) 10/20/2018 6:46 AM EST 10/20/2018 7:00 AM EST Narrative Resulting Agency Comment Spec In Lab Steve Celaya DO HEMATOLOGY ORDERABLE S Performing Organization Address City/[facility]/ZIP Co de Phone Number [facility] [place] [address] * (ABNORMAL) Differential, Automated (10/20/2018 6:46 AM EST) Pathologist [facility] Neutrophil % 37.7 % [facility] Neutrophil Absolute 5.06 1.70 - 6.10 x10(3)/mc L [facility] Lymph % 11.3 % [facility] Lymphocytes Abs 1.5 0.9 - 3.2 x10(3)/mc L [facility] Monocyte % 6.0 % [facility] Monocyte Abs 0.8 0.3 - 0.9 x10(3)/mc L [facility] Eos % 44.4 % [facility] Eosinophils Abs 6.0(H) 0.0 - 0.4 x10(3)/mc L [facility] Basophil % 0.4 % [facility] Baso Absolute 0.1 0.0 - 0.1 x10(3)/mc L [facility] Immature Gran % 0.20 % [facility] Comment: Immature granulocytes(IG's)percentage and absolute count will include metamyelocytes, myelocytes, and promyelocytes. Blood smears from CBCs yielding IG's will be scanned manually for concordance. If this scan disagrees with the automated IG or if promyelocytes are noted, a manual differential will be performed. Immature Gran Absolute 0.03 0.00 - 0.04 x10(3)/ L [facility] Blood specimen (specimen) 10/20/2018 6:46 AM EST 10/20/2018 7:00 AM EST Narrative Resulting Agency Comment Spec In Lab Steve Celaya DO HEMATOLOGY ORDERABLE S [facility] [place] [address] * (ABNORMAL) Hemogram (10/20/2018 6:46 AM EST) White Blood Cell 13.4(H) 4.0 - 9.5 x10(3)/[facility] Red Blood Cell 4.66 4.58 - 5.54 x10(6)/[facility] Hemoglobin 14.7 13.7 - 16.5 gm/dL [facility] Hematocrit 44.3 40.5 - 48.5 % [facility] Mean Cell Volume 95.1(H) 82.9 - 93.1 [facility] Mean Cell Hemoglobin 31.5 27.5 - 32.[address] [facility] Mean Cell Hemoglobin Concentration 33.2 32.0 - 35.7 gm/dL [facility] Platelet 245 145 - 357 x10(3)/[facility] RDW Standard Deviation 47.5(H) 36.0 - 45.0 [facility] RDW coefficient of variation 13.5 11.4 - 13.8 % [facility] Mean Platelet Volume 10.9 7.6 - 12.9 [facility] NRBC% auto 0.0 % [facility] NRBC Absolute 0.000 0.000 - 0.000 x10(3)/ L [facility] Blood specimen (specimen) 10/20/2018 6:46 AM EST 10/20/2018 7:00 AM EST Narrative Resulting Agency Comment Spec In Lab Steve Celaya DO HEMATOLOGY ORDERABLE S Performing Organization Address [facility] de Phone Number [facility] [place] [address] * Prothrombin Time (10/20/2018 6:46 AM EST) Prothrombin Time 12.5 9.4 - 12.[address] [facility] International Normalization Ratio 1.1 [facility] Comment: An INR <2.0 indicates [...] ORDERABLE S Performing Organization Address [facility] de Phone Number [facility] [place] [address] * (ABNORMAL) BMP w/fasting Glucose (10/20/2018 6:46 AM EST) Glucose Fasting 121(H) 65 - 99 mg/dL [facility] Comment: ?Fasting* Glucose Interpretive Criteria [...] of Diabetes Mellitus, Position Statement from the [place] [employer]. ??Diabetes Care, Volume 33, Supplement 1, Dec 2009 Blood Urea Nitrogen 20 10 - 20 mg/dL [facility] Creatinine 1.08 0.80 - 1.50 mg/dL [facility] Sodium 142 135 - 145 mmol/L [facility] Potassium 4.7 3.5 - 5.0 mmol/L [facility] Comment: Please note: ??Patients with WBC >100,000 may have falsely elevated Potassium levels. ??For accurate Potassium quantification in these patients send serum separator tube (gold top) for subsequent determinations. ??Contact the Clinical Chemistry Laboratory if there are any questions. Chloride 103 98 - 107 mmol/L [facility] Carbon Dioxide 26 22 - 31 mmol/L [facility] Anion Gap 13 5 - 15 mmol/L [facility] Calcium 9.6 8.5 - 10.5 mg/dL [facility] Est Glomerular Filtration Rate 68 >=60 mL/min/1. 73 m?? [facility] Comment: The eGFR was calculated using the CKD-EPI equation. As with all creatinine based estimates of kidney function, eGFR values calculated with the CKD-EPI equation are not accurate in patients with acute kidney failure, extremes of body mass or the acutely ill. [email or web address] eGFR 79 >=60 mL/min/1. 73 m?? [facility] Comment: The eGFR was calculated using the CKD-EPI equation. As with all creatinine based estimates of kidney function, eGFR values calculated with the CKD-EPI equation are not accurate in patients with acute kidney failure, extremes of body mass or the acutely ill. [email or web address] Blood specimen (specimen) 10/20/2018 6:46 AM EST 10/20/2018 7:00 AM EST Narrative Resulting Agency Comment Spec In Lab Komal Nguyen MD CHEMISTRY ORDERABLES [facility] [place] [address] documented in this encounter Visit Diagnoses Diagnosis [...] 0851 (Not Given - Provider: Holly Alexandre, RN - Reason: Patient/family refused) atorvastatin (LIPITOR) [...] Routine 1020 (Given - Provider: Munira Kimbrough, RN) lidocaine (XYLOCAINE) 20 mg/mL (2 %) injection 400 mg (COMPLETED) 400 mg (20 mL), Subcutaneous, ONCE, 1 dose, On Fri10/20/18 at 1230, EP (Intra-Procedure), Routine 1040 (Given - Provider: Munira Kimbrough, MORIAH) pantoprazole (PROTONIX) tablet 40 mg 40 mg, [...] Alexandre, MORIAH - Reason: Medication not available) Continuous Medication [...] Routine documented in this encounter Care Teams Nurse Orthopaedic Relationship Specialty Start Date End Date Camacho Barrera DO [address] [place] [address] PCP - General Family Medicine 07/01/18 documented as of this encounter
--- OUTSIDE RECORDS SUMMARY | 2024-09-25 08:42 | XMS_ITS | Encounter Summary ---
Author Organization [place] [address] Care Team Providers Care Ems Instructor Name Role Phone Camacho Barrera DO Primary Care Provider [phone] Encounter Details Date Type Department Care Team (Late st Contact Info) Description 06/20/2019 Telephone Cardiology at [address] [address] Nasim Harris MD [facility] [place] [address] Social History Tobacco Use Types Packs/Day Years [...] on filedocumented in this encounter Care Teams Ems Instructor Relationship Specialty Start Date End Date Camacho Barrera DO [address] [place] [address] PCP - General Family Medicine 07/01/18 documented as of this encounter
--- OUTSIDE RECORDS SUMMARY | 2024-09-25 08:42 | XMS_ITS | Encounter Summary ---
[place] [address] Care Team Providers Care Measuring Machine Tender Name Role Phone Camacho Barrera DO Primary Care Provider [phone] Reason for Visit * Reason Comments Atrial Fibrillation Follow-up Ekg Encounter Details Date Type Department Care Team (Late st Contact Info) Description 01/27/2019 11:20 AM EST Office Visit Cardiology at [address] [address] Kenny Nelson MD [facility] [place] [address] Paroxysmal atrial fibrillation; Status post ablation of [...] 01/27/2019 11:20 AM EST Cardiac Elect[facility] [place] Office January 27, 2019 Field Pipe Lines Supervisor: Ant Suarez MD Primary Care Physician: Camacho [...] along the posterior edge of the right lonra. The intended result was for acute electrical [...] was prolonged at >190 ms (the sinusrhythm LA interval); the post-ablation sinus rhythm P wave duration was >190 ms (the sinus rhythm LA interval). Amiodarone was discontinued after his procedure, and otherwise he was maintained on rivaroxiban anticoagulation. He reports that his legs remain weak, but he has felt no recurrent symptoms suggestiveof a dysrhythmia. He is not yet very active, but he is interested in becoming better conditioned. Recently he wore a Bitybean llco monitor. Past Medical History: 1) Atrial fibrillation [...] Extremities: Pulses present. Neurological: Grossly intact. Tests: Bitybean llco Monitor (December 21, 2018; analyzed 13 days [...] (Bezet) 469 ms MUSE SYSTEM Calculated P [place] 78 degrees MUSE SYSTEM Calculated R [place] 24 degrees MUSE SYSTEM Calculated T [place] 91 degrees MUSE SYSTEM INTERPRETATION Possible wandering [...] status documented in this encounter Care Teams Measuring Machine Tender Relationship Specialty Start Date End Date Camacho Barrera DO [address] [place] [address] PCP - General Family Medicine 07/01/18 documented as of this encounter
--- OUTSIDE RECORDS SUMMARY | 2024-09-25 08:42 | XMS_ITS | Encounter Summary ---
Author Organization [facility] [place] [address] Care Team Providers Care Software Security Architect Name Role Phone Camacho Barrera DO Primary Care Provider [phone] Reason for Visit * Auth/Cert Specialty Diagnoses [...] Expiration Date Visits Re quested Visits Authorized [id number] 1 1 Encounter Details Date Type Department Care Team (Late st Contact Info) Description 10/20/2018 10:05 AM EST Anesthesia Event [place] [address] Jaya Alfonso MD [facility] [place] [address] Steve Hollins CRNA [facility] [place] [address] Anesthesia Record Procedure Summary Procedure Name Responsible Anesthesiologist Anesthesia Start Time Anesthesia Stop Time ELECTROPHYSIOLOGY PROCEDURE Jaya Alfonso MD 10/20/18 1005 10/20/18 1936 Events Date Time Event Comment 10/20/2018 0713 1005 Start 1011 AN Verify 1018 An Start Data 1023 An Induction 1028 An Intubation 1039 Anesthesia Ready 1119 Procedure Start 1133 Break/Relief In Amadeo callaway, [employer] TALEO MANAGER 1207 Procedure Stop 1213 Heparin 1225 Heparin 1226 ABG Data Arterial Blood Gas result: pH 7.39 pCO2 41.4 pO2 199 %O2 Sat 99 FiO2 59 HCO3 25.3 BE 0 Hb 12.6 K 4.9 1258 Quick Note 6mg Adenosine g iven by proceduralist 1300 Quick Note 18 mg adenosine given by proceduralist 1450 Break/Relief In Nayla Paulino Bert paulino, [employer]ALE[employer] MANAGER 1512 Break/Relief Out 1728 Handoff Intra-procedure anesthesia [...] basilic vein (medial side of arm), left; rrld-epe-jxjrxa catheter system; 20 gauge; shelby orozco RN; [...] guessing time) 10/20/18 1029 by Steve Hollins, [employer] TALEO MANAGER 10/20/18 1800 by Holly Alexandre, RN (RETIRED) Peripheral IV Line - Single Lumen 10/20/18; 1030; metacarpal vein (top of hand), left; rrpu-pdp-txlnug catheter system; 18 gauge; michaela filtration operator; other (see comments), tolerated well; 0; 10/21/18; 1248 10/20/18 1030 by Steve Hollins, [employer] TALEO MANAGER 10/21/18 1248 by Nayla Arredondo ETT Mask Ventilation: Ea sy (1); ETT Type: Cuffed; ETT Size: 7.5 mm; Mac Blade: 4; Notes: Asleep, Pre-O2, Cricoid Pressure, Stylette; Attempts: 1; Laryngoscopy Grade: 2; ETT Placement Verified By: Auscultation, Capnometry, Visual; Secured at Teeth: 23 cm; Inserted by: Kentrell RN; Removal Date: 10/20/18; Removal Time: 192510/20/18 103 by Steve Hollins, [employer] TALE[employer] MANAGER 10/20/181925 by Deandra Hmailton CRNA LDA Cath/EP Sheath 10/20/18; 1040; 8 [...] RN LDA Cath/EP Sheath 10/20/18; 1040; 6.5 Arabic (Fr) (6.5); Left; Femoral (LFV) 10/20/18 1040 [...] Alfonso MD - 10/20/2018 8:01 PM EST [facility] Department of Anesthesiology Post-procedure Note Patient: Camacho Flores Procedure Summary Date: 10/20/18 Room / Location: [facility] B-LAB ROOM 4 / [facility] EP LABS Anesthesia Start: 1005 Anesthesia Stop: 1935 Procedures: ELECTROPHYSIOLOGY PROCEDURE (N/A ) TRANSESOPHAGEAL ECHO DURING CATH/EP PROCEDURE (N/A ) Diagnosis: Persistent atrial fibrillation (AFIB ABLATION) Provider: Kenny Nelson MD; Raffi Badillo MD Responsible Provider: Jaya Alfonso MD Anesthesia Type: general ASA Status: 2 All Anesthesia Providers: Anesthesiologist: Beth Meredith MD; Jaya Alfonso MD [employer] MANAGER: Steve Hollins CRNA; Radhames Will Jr., CRNA; Deandra Hamilton CRNA Most Recent Vitals: 10/20/181933 BP: 123/77 Pulse: 63 Resp: 16 Temp: 36.1 ??C (97 ??F) SpO2: 95% Pain Patient Location: PACU/[facility] Level of Consciousness: Awake and [...] W/SCAN performed by Jose Small MD at [facility] MAIN OR ??? PRO STEREOTACTIC CPTR ASSTD PX CRANIAL, INTRADURAL Right 01/27/2015 STEREOTACTIC COMPUTER-ASSTD NAVIGATIONAL CRANIAL INTRADURAL performed by Jose Small MD at [facility] MAIN OR Social History Tobacco [...] mg documented in this encounter Care Teams Software Security Architect Relationship Specialty Start Date End Date Camacho Barrera DO [address] [place] [address] PCP - General Family Medicine 07/01/18 documented as of this encounter
--- OUTSIDE RECORDS SUMMARY | 2024-09-25 08:42 | XMS_ITS | Encounter Summary ---
[place] [address] Care Team Providers Care Machine Cloth Trimmer Name Role Phone Camacho Barrera DO Primary Care Provider [phone] Encounter Details Date Type Department Care Team (Late st Contact Info) Description 11/26/2018 10:00 AM EST Office Visit Cardiology at [address] [address] Gonzales Torres MD [facility] [address] Steve Celaya DO [facility] [place] [address] Paroxysmal atrial fibrillation Social History Tobacco Use [...] Follow up Patient ID Camacho Flores [id number] Camacho Flores is following up in EP [...] >190 ms (the sinus rhythm VT interval). 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, lives with in [facility]. Family History Family History Problem [...] all extremities ECG: SR rhythm, 59 bpm, VT 104 ms, QRS 84 ms, QTC 430 [...] Nelson in 2 months. C) We discussed usp continuation of his Eliquis. Supervising attending: Dr. Melissa Celaya DO Cardiac Electrophysiology Fellow Cc: Camacho Barrera DO For the purpose of billing, this patient was seen by the fellow GONZALES TORRES MD documented in this encounter Plan [...] (Bezet) 451 ms MUSE SYSTEM Calculated P [place] 104 degrees MUSE SYSTEM Calculated R [place] 19 degrees MUSE SYSTEM Calculated T [place] 102 degrees MUSE SYSTEM INTERPRETATION Sinus bradycardia with short VT RSR' or QR pattern in V1 suggests right ventricular conduction delay Abnormal ECG When compared with ECG of 18-AUG-2018 09:06, Sinus rhythm has replaced Atrial fibrillation Confirmed by MD Colton, [place] ([id number]) on 11/26/2018 10:43:46 AM MUSE SYSTEM 11/26/2018 9:59 AM EST 11/26/2018 10:43 AM EST Gonzales Torres MD ECG ORDERABLES MUSE SYSTEM documented in this encounter Visit Diagnoses Diagnosis Paroxysmal atrial fibrillation Atrial fibrillation documented in this encounter Care Teams Machine Cloth Trimmer Relationship Specialty Start Date End Date Camacho Barrera DO [address] [facility] [address] PCP - General Family Medicine 07/01/18 documented as of this encounter
--- OUTSIDE RECORDS SUMMARY | 2024-09-25 08:42 | XMS_ITS | Encounter Summary ---
Author Organization [facility] [place] [address] Care Team Providers Care Front Office Secretary Name Role Phone Camacho Barrera DO Primary Care Provider [phone] Reason for Visit * Reason Onset Date Comments Medication Refill 11/23/2018 Encounter Details Date Type Department Care Team (Late st Contact Info) Description 11/23/2018 Refill Cardiology at [address] [address] Miguel De Los Santos PA [facility] [address] Medication Refill Social History Tobacco Use Types [...] on filedocumented in this encounter Care Teams Front Office Secretary Relationship Specialty Start Date End Date Camacho Barrera DO [address] [place] [address] PCP - General Family Medicine 07/01/18 documented as of this encounter
--- OUTSIDE RECORDS SUMMARY | 2024-09-25 08:42 | XMS_ITS | Encounter Summary ---
[place] [address] Care Team Providers Care Repossession Agent Name Role Phone Camacho Barrera DO Primary Care Provider [phone] Encounter Details Date Type Department Care Team (Late st Contact Info) Description 10/21/2018 Telephone Cardiology at [address] [phone] Maria E Haque, RN Social History Tobacco [...] 10/21/2018 2:36 PM EST TC from Adilene, coater operator at [facility] Internal Medicine w/ question about DC [...] on filedocumented in this encounter Care Teams Repossession Agent Relationship Specialty Start Date End Date Camacho Barrera DO [address] [place] [address] PCP - General Family Medicine 07/01/18 documented as of this encounter
--- OUTSIDE RECORDS SUMMARY | 2024-09-25 08:42 | XMS_ITS | Encounter Summary ---
Author Organization [facility] [place] [address] Care Team Providers Care Garment Sewing Machine Operator Name Role Phone Camacho Barrera DO Primary Care Provider [phone] Encounter Details Date Type Department Care Team (Late st Contact Info) Description 06/20/2019 Telephone Cardiology at [address] [phone] Nsaim Harris MD [facility] [place] [address] Social History Tobacco Use Types Packs/Day Years [...] 1608 Referring Provider: Dean Guerrero Patient Location: [facility] Presenting Symptoms per OSH: Intermittent CP Past [...] or examined this patient. Nasim Harris MD Management Specialist PGY4 P: [id number] documented in this encounter Plan of Treatment Not on file documented as of this encounter Visit Diagnoses Not on filedocumented in this encounter Care Teams Garment Sewing Machine Operator Relationship Specialty Start Date End Date Camacho Barrera DO [address] [facility] [place] [address] PCP - General Family Medicine 07/01/18 documented as of this encounter
--- OUTSIDE RECORDS SUMMARY | 2024-09-25 08:42 | XMS_ITS | Encounter Summary ---
[place] [address] Care Team Providers Care Home Visitor Home Base Head Start Name Role Phone Camacho Barrera DO Primary Care Provider [phone] Reason for Referral * Diagnostic Test (Routine) - Closed Specialty Diagnoses / Procedures Referred By Contac t Referred To Contact Cardiology Diagnoses Status post ablation of atrial fibrillation Paroxysmal atrial fibrillation Procedures Kenny Mcadams MD [facility] [place] [address] [facility] [place], [place] Cardiology [address] [place] [phone] Referral ID Status Reason Start Date Expiration Date V isits Requested Visits Authorized [id number] Closed Specialty Service Requested 10/21/2018 10/21/2019 1 1 Reason for Visit * Diagnostic Test (Routine) - Closed Specialty Diagnoses / Procedures Referred By Contac t Referred To Contact Cardiology Diagnoses Status post ablation of atrial fibrillation Paroxysmal atrial fibrillation Procedures Kenny Mcadams MD [facility] [place] [address] [facility] [place] [place] Cardiology [address] [place] [phone] Referral ID Status Reason Start Date Expiration Date V isits Requested Visits Authorized [id number] Closed Specialty Service Requested 10/21/2018 10/21/2019 1 1 Encounter Details Date Type Department Care Team (Latest Contact Info) Description 12/21/2018 12:25 PM EST - 12/21/2018 11:59 PM EST Hospital Encounter Non-Invasive Cardiology Lab [place] [phone] Status post ablation of atrial fibrillation; Paroxysmal [...] fibrillation documented in this encounter Results * [place] (12/21/2018 12:46 PM EST) Anatomical Region Laterality [...] detected. ____ Interpreted by Kenny Nelson MD, [facility] Kenny Nleson MD CARDIAC SERVICES ORD ERABLES documented in this encounter Visit Diagnoses Diagnosis Status post ablation of atrial fibrillation Other postprocedural status Paroxysmal atrial fibrillation Atrial fibrillation documented in this encounter Care Teams Home Visitor Home Base Head Start Relationship Specialty Start Date End Date Camacho Barrera DO [address] [place] [address] PCP - General Family Medicine 07/01/18 documented as of this encounter
--- OUTSIDE RECORDS SUMMARY | 2024-09-25 08:42 | XMS_ITS | Encounter Summary ---
[place] [address] Care Team Providers Care Rice Dryer Mechanic Name Role Phone Camacho Barrera DO Primary Care Provider [phone] Encounter Details Date Type Department Care Team (Late st Contact Info) Description 10/09/2020 11:20 AM EST Office Visit Cardiology at [address] [phone] Kenny Nelson MD [facility] [place] [address] Paroxysmal atrial fibrillation Social History Tobacco Use [...] 10/09/2020 11:20 AM EST Card[facility] Electrophysiology [facility] [place] Office October 09, 2020 (last visit January 27, 2019) Behavioral Interventionist: Ant Suarez MD -> consider Dr. Almodovar [...] pre-ablation was prolonged at??>190??ms (the sinus rhythm WI interval); the post-ablation sinus rhythm P wave duration was??>190??ms (the sinus rhythm WI interval). > Off amiodarone 2) Coronary artery [...] and Simvastatin ?? 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 Review [...] Extremities: Pulses present. Neurological: Grossly intact. Tests: [employer] Monitor (August 27, 2020; analyzed 7 days [...] ~12% burden of ventricular ectopy were detected. [employer] Monitor (December 21, 2018; analyzed 13 days [...] recalled no such symptoms while wearing the [employer] monitor. I am concernedthat his burden of [...] daily, and to seek assistance from an executive personal assistant if the epistaxis again becomes an issue. [...] was mention of a stress test at [facility] - I'd like to see that, if [...] (Bezet) 437 ms MUSE SYSTEM Calculated P Leary 58 degrees MUSE SYSTEM Calculated R Leary 31 degrees MUSE SYSTEM Calculated T Leary 143 degrees MUSE SYSTEM INTERPRETATION Sinus rhythm [...] fibrillation documented in this encounter Care Teams Rice Dryer Mechanic Relationship Specialty Start Date End Date Camacho Barrera DO [address] [place] [address] PCP - General Family Medicine 07/01/18 documented as of this encounter
--- OUTSIDE RECORDS SUMMARY | 2024-09-25 08:42 | XMS_ITS | Encounter Summary ---
[place] [address] Care Team Providers Care Captain Of Guards Name Role Phone Camcaho Barrera DO Primary Care Provider [phone] Reason for Referral * Diagnostic Test (Routine) - Closed Specialty Diagnoses / Procedures Referred By Contac t Referred To Contact Cardiology Diagnoses Status post ablation of atrial fibrillation Paroxysmal atrial fibrillation Procedures Kenny Mcadams MD [facility] [place] [address] [facility] [place] Cardiology [address] [place] [phone] Referral ID Status Reason Start Date Expiration Date V isits Requested Visits Authorized [id number] Closed Specialty Service Requested 10/21/2018 10/21/2019 1 1 Encounter Details Date Type Department Care Team (Late st Contact Info) Description 10/21/2018 Orders Only Cardiology at [address] [phone] Kenny Nelson MD [facility] [place] [address] Status post ablation of atrial fibrillation; Paroxysmal [...] detected. ____ Interpreted by Kenny Nelson MD, [facility] Kenny Nelson MD CARDIAC SERVICES ORD ERABLES documented in this encounter Visit Diagnoses Diagnosis Status post ablation of atrial fibrillation Other postprocedural status Paroxysmal atrial fibrillation Atrial fibrillation Status post ablation of atrial fibrillation Other postprocedural status Paroxysmal atrial fibrillation Atrial fibrillation documented in this encounter Care Teams Captain Of Guards Relationship Specialty Start Date End Date Camacho Barrera DO [facility] [place] [place] [address] PCP - General Family Medicine 07/01/18 documented as of this encounter
--- OUTSIDE RECORDS SUMMARY | 2024-09-25 08:42 | XMS_ITS | Encounter Summary ---
Author Organization [facility] [place] [address] Care Team Providers Care Communications Department Head Name Role Phone Camacho Barrera DO Primary Care Provider [phone] Reason for Visit * Reason Onset Date Comments Medication Refill 10/23/2018 Encounter Details Date Type Department Care Team (Late st Contact Info) Description 10/23/2018 Refill Cardiology at [address] [phone] Miguel De Los Santos PA [facility] [place] [address] Medication Refill Social History Tobacco Use Types [...] on filedocumented in this encounter Care Teams Communications Department Head Relationship Specialty Start Date End Date Camacho Barrera DO [address] [place] [address] PCP - General Family Medicine 07/01/18 documented as of this encounter
--- OUTSIDE RECORDS SUMMARY | 2024-09-25 08:43 | XMS_ITS | Encounter Summary ---
Author Organization [facility] [place] [address] Care Team Providers Care Lcsw Name Role Phone Agata Barrera DO Primary Care Provider [phone] Reason for Visit * Auth/Cert Specialty Diagnoses / Procedures Referred By Contac t Referred To Contact Diagnoses Chest pain ANGINA ?CAD Procedures CARDIAC CATHETERIZATION URG IPI Referral ID Status Reason Start Date Expiration Date Visits Re quested Visits Authorized [id number] 1 1 Encounter Details Date Type Department Care Team (Latest Contact Info) Description 07/26/2018 11:01 AM EDT - 08/01/2018 3:05 PM EDT Hospital Encounter Intermediate [place] [address] Cameron Mahmood MD [facility] [place] [address] Ant Suarez MD [facility] [place] [address] Chest pain, unspecified type; Persistent atrial fibrillation [...] Agata Flores Patient Age: 72 y.o. Language: Surinamese Race: White Ethnicity: Not nor Admit date: [...] [facility] can be reached at [phone] Discharge Diagnoses (Hospital Problems) and Secondary Diagnoses [...] x2, distal LCx x2, ramus x1 at [facility]), HTN, HLD, persistent a-fib (diagnosed 6 weeks ago, s/p DCCV 3 weeks ago, on xarelto), and brain abscess (s/p surgery and abx treatment in 2014) who presented to [facility] with progressive dyspnea and lightheadedness on [...] presumed to be in sinus rhythm. His rn iv therapy, Dr. Ma, had also scheduled him for an outpatient nuclear stress test to be done in the coming weeks. On Friday, 07/24, he had an episode of chest pressure, occurring with his shortness of breath and lightheadedness on exertion. It was relieved with rest. He went to [facility] ED and was in a-fib with HR 80. Troponins were negative, EKG was without concerning findings. He was admitted to await transfer [place] [facility] [place] cardiac [place], given his history of ASCVD. He had one additional episode of chest pressure on exertion while at [facility], when he had gotten up to [...] past. He was started on aspirin at [facility] without side effects. Hospital Course: Chest pressure, with h/o ASCVD The patient ruled out for NSTEMI with negative troponin x3, however symptoms were concerning for his anginal equivalent. ECG showed no acute ST changed. Echo showed EF 61% without wall motion abnormalities. Given the patient???s risk factors and presentation, it was decided to proceed with coronaryangiography. He went to the labor commissioner for a diagnostic cath, which showed non-obstructive CAD. Access was via the right radial artery, the site was clean, dry, and intact on day of discharge. He was discharged on aspirin 81mg daily, metoprolol, statin, and SL nitro prn. ?? Persistent a-fib, rate controlled The patient was in controlled a-fib, HR in 80s, on admission. His [id number] score is 3 (age, HTN,CAD). Rivaroxaban had [...] appointments: During 8am-5pm Friday through Friday call [phone] to speak with a nurse in the cardiology clinic All other times call [phone] and ask to speak to the director of plant operations ultrasonic seaming machine operator. Return to work: as needed Driving: as needed Follow up Appointments: PCP Agata Barrera DO [phone] to see you in a week. Please [...] appointments: During 8am-5pm Friday through Friday call [phone] to speak with a nurse in the cardiology clinic All other times call [phone] and ask to speak to the director of plant operations ultrasonic seaming machine operator. Return to work: as needed Driving: as needed Follow up Appointments: PCP Agata Barrera, to see you in a week. Please [...] Progress Note Patient Name: Agata Flores Service: EVENT SPECIALIST PRODUCT DEMONSTRATOR / PA Responsible Attending: Ant Suarez MD Reason for continued hospitalization: A-fib management, Dofetilide load, s/p cardioversion to NSR Telemetry monitoring EP to see patient prior to continuing Dofetilide Active Problems: Active Hospital Problems Diagnosis ??? ASCVD (arteriosclerotic cardiovascular disease) PCI in 2005 at [facility]: stents to LAD x2, LCx [...] x2, distal LCx x2, ramus x1 at [facility]), HTN, HLD, persistent a-fib (diagnosed 6 weeks ago, s/p DCCV 3weeks ago, on xarelto), and brain abscess (s/p surgery and abx treatment in 2014) who presented to [facility] with progressive dyspnea and lightheadedness on [...] 80-100s since admission, currently in A. fib [id number] Score: 3 (age, HTN, CAD) Continue metoprolol [...] MD Kelly H. LaFlamme, PA 08/01/2018 Pager [phone] 08/01/2018 I have seen the patient and reviewed the advanced practice provider's above history and I agree with the details as written. The assessment and plan were formulated in discussion with me and I agree with them as documented. Unable to use dofetilide, EP consulted and okay with discharging patient today. Will discontinue dofetilide. * Norma Dleatorre - 07/31/2018 3:17 PM EDT Nutrition Services - Initial Note Agata Flores : 1945 AGE: 72 y.o. Patient Active Problem List Diagnosis Date Noted ??? *Hospital-ASCVD (arteriosclerotic cardiovascular disease) 07/26/2018 ??? Hospital-Atrial fibrillation 07/26/2018 ??? Hospital-Hypertension 07/26/2018 ??? Hospital-HLD (hyperlipidemia) 07/26/2018 ??? Hospital-Chest pain 07/26/2018 ??? Brain abscess 01/31/2015 Reason for Nutrition Intervention: Diet Order Diet Order: [facility], [facility] Appetite: Good Food allergies: NKFA Chewing/Swallowing difficulty: [...] Assessment: Patient seen regarding Nutrition Education - [facility] diet. Patient reported a good appetite without [...] 1:56 PM EDT CM verified with pharmacy [email or web address]. It does not require prior authorization and the copay is 5 dollars. Corazon Allen RN CM Pager [phone] * JoeJosh akhtar Osman, GAGE - 07/31/2018 10:45 AM EDT Cardiac Electrophysiology Progress Note Attending: Fred Maki MD Problem List: Patient Active Problem List Diagnosis ??? ','ASCVD (arteriosclerotic cardiovascular disease) Overview Note: PCI in 2005 at [facility]: stents to LAD x2, LCx [...] x2, distal LCx x2, ramus x1 at [facility]), HTN and HLD. His cardiac enzymes remained negative and his EKGs were not suggestive of ischemia. He was transferred to [facility] for cardiac [...] follow with you. GAGE Toussaint 07/31/2018 Pager: [phone] Responsible Attending: Fred Maki MD 07/31/2018 Case was discussed with Dr. Maki and he was directly involved in care of patient and formulation of plan Pager: [phone] Associated attestation - Fred Maki MD - 07/31/2018 3:24 PM EDT Patient seen and examined. Pertinent data (jani. ECGs) reviewed. Plan agreed with. Fred Maki MD, PhD, [facility] Cardiac Electrophysiology 07/31/2018 3:24 PM * Ant Suarez MD - 07/31/2018 10:35 AM EDT Images from the original note were not included. Inpatient Cardiology Progress Note Patient Name: Agata Flores Service: EVENT SPECIALIST PRODUCT DEMONSTRATOR / PA Responsible Attending: Ant Suarez MD Reason for continued hospitalization: A-fib management, Dofetilide load, s/p cardioversion to NSR Active Problems: Active Hospital Problems Diagnosis ??? ASCVD (arteriosclerotic cardiovascular disease) PCI in 2005 at [facility]: stents to LAD x2, LCx [...] 07/26/18 1144 INR 1.2 Recent Labs 07/31/18 0607/30/18 0406 07/29/18 0517 NA 140 138 139 [...] x2, distal LCx x2, ramus x1 at [facility]), HTN, HLD, persistent a-fib (diagnosed 6 weeks ago, s/p DCCV 3weeks ago, on xarelto), and brain abscess (s/p surgery and abx treatment in 2014) who presented to [facility] with progressive dyspnea and lightheadedness on [...] 80-100s since admission, currently in A. fib [id number] Score: 3 (age, HTN, CAD) Continue metoprolol [...] MD Kelly H. LaFlamme, PA 07/31/2018 Pager [phone] 07/31/2018 I have seen the patient and [...] (NENO/CT/pre-op PPI etc) Fred Maki MD, PhD, [facility] Cardiac Electrophysiology * Corazon Allen RN - 07/30/2018 11:07 AM EDT CM continues to monitor for post hospital needs. Potential DC Friday. Pt started on Tikosyn po (consider possible preauth for medication). No home care needs identified. Corazon Allen RN Pager [phone] * Elena Hooks APRN - 07/30/2018 9:01 AM EDT Inpatient Cardiology Progress Note Patient Name: Agata Flores Service: EVENT SPECIALIST PRODUCT DEMONSTRATOR / PA Responsible Attending: Cameron Mahmood MD Reason for continued hospitalization: A-fib management Syncope Dofetilide load, cardioversion Active Problems: Active Hospital Problems Diagnosis ??? ASCVD (arteriosclerotic cardiovascular disease) PCI in 2005 at [facility]: stents to LAD x2, LCx [...] x2, distal LCx x2, ramus x1 at [facility]), HTN, HLD, persistent a-fib (diagnosed 6 weeks ago, s/p DCCV 3weeks ago, on xarelto), and brain abscess (s/p surgery and abx treatment in 2014) who presented to [facility] with progressive dyspnea and lightheadedness on [...] 80-100s since admission, currently in A. fib [id number] Score: 3 (age, HTN, CAD) Continue metoprolol [...] and guided the medical decision-making. * Garth Valdze RN - 07/29/2018 3:18 PM EDT Arrived from or per bed accompanied by high school history teacher. Phase I in progress. Patient has dry cough. States tickle in thrOAT. Denies shortness of breath or chest pain. * Elena Hooks, DIPLOMA MEDICAL ASSISTANT - 07/29/2018 11:49 AM EDT Inpatient Cardiology Progress Note Patient Name: Agata Flores Service: EVENT SPECIALIST PRODUCT DEMONSTRATOR / PA Responsible Attending: Cameron Mahmood MD Reason for continued hospitalization: Evaluation and management of chest pain S/p cardiac catheterization, non-obstructive disease EP consult for a-fib management Syncope Active Problems: Active Hospital Problems Diagnosis ??? ASCVD (arteriosclerotic cardiovascular disease) PCI in 2005 at [facility]: stents to LAD x2, LCx [...] x2, distal LCx x2, ramus x1 at [facility]), HTN, HLD, persistent a-fib (diagnosed 6 weeks ago, s/p DCCV 3weeks ago, on xarelto), and brain abscess (s/p surgery and abx treatment in 2014) who presented to [facility] with progressive dyspnea and lightheadedness on [...] controlled HR controlled in 80-100s since admission [id number] Score: 3 (age, HTN, CAD) Continue metoprolol [...] with pt in more detail short and chcf risk of afib ablation and drug therapy [...] clear dofetilide initiation Fred Maki MD, PhD, [facility] Cardiac Electrophysiology * Stephanie Mcgraw RN - 07/28/2018 10:43 AM EDT 0845 :Mr Flores was finishing his shower , sitting on the toilet . He stated That he began to feel dizzy , put his call light on and notified the WARNING ANALYST that he was feeling dizzy.I ran to [...] Progress Note Patient Name: Agata Flores Service: EVENT SPECIALIST PRODUCT DEMONSTRATOR / PA Responsible Attending: Cameron Mahmood MD Reason for continued hospitalization: Evaluation and management of chest pain S/p cardiac catheterization, non-obstructive disease EP consult for a-fib management Syncope Active Problems: Active Hospital Problems Diagnosis ??? ASCVD (arteriosclerotic cardiovascular disease) PCI in 2005 at [facility]: stents to LAD x2, LCx [...] sitting position on the toilet by a certified nursing attendant. When the certified nursing attendant went to find other staff to help [...] his reports. He was evaluated by this public relations writer along with Dr. Mahmood once he [...] x2, distal LCx x2, ramus x1 at [facility]), HTN, HLD, persistent a-fib (diagnosed 6 weeks ago, s/p DCCV 3weeks ago, on xarelto), and brain abscess (s/p surgery and abx treatment in 2015) who presented to [facility] with progressive dyspnea and lightheadedness on [...] controlled HR controlled in 80-100s since admission [id number] Score: 4 (age, HTN, CAD) Continue metoprolol [...] guided the medical decision-making. * Deonna Rasheed EneidaJOSE - 07/27/2018 1:28 PM EDT Inpatient Cardiology Progress Note Patient Name: Agata Flores Service: EVENT SPECIALIST PRODUCT DEMONSTRATOR / PA Responsible Attending: Cameron Mahmood MD Reason for continued hospitalization: Evaluation and management of chest pain S/p cardiac catheterization, non-obstructive disease EP consult for a-fib management Active Problems: Active Hospital Problems Diagnosis ??? ASCVD (arteriosclerotic cardiovascular disease) PCI in 2005 at [facility]: stents to LAD x2, LCx [...] x2, distal LCx x2, ramus x1 at [facility]), HTN, HLD, persistent a-fib (diagnosed 6 weeks ago, s/p DCCV 3weeks ago, on xarelto), and brain abscess (s/p surgery and abx treatment in 2014) who presented to [facility] with progressive dyspnea and lightheadedness on [...] Persistent a-fib, rate controlled HR controlled in 34670g since admission [id number] Score: 4 (age, HTN, CAD) Continue metoprolol, [...] with Cameron Mahmood MD. Deonna Rasheed, MSN, PEDIATRIC PHYSICAL THERAPY ASSISTANT-, JOSE 07/27/2018 Pager [phone] Associated attestation - Cameron Mahmood MD - 07/27/2018 3:58 PM EDT Cardiology Attending Addendum I shared this visit with Deonna Rasheed APRN, and guided the medical decision-making. * Min Jeffery II - 07/27/2018 11:33 AM EDT Agata Flores July 27, 2018 [id number] [phone] News Videographer - Preliminary Findings Procedures: coronary angiography left [...] be: 4 (see definitions below). Definitions from [place] Study of Health and Aging Clinical Frailty [...] with all outside activities and with minor twenty one dealer. May need help with bathing and dressing. 7: SEVERELY FRAIL: completely dependent for personal care, but stable and not at high risk of dyingwithin 6 months 8: VERY SEVERELY FRAIL: completely dependent, approaching end of life. Not likely to recover from even minor added illness 9: TERMINALLY ILL: Life expectancy of less than 6 months, even if not otherwise frail Daroin Machado M.D. (Fellow) Min Jeffery M.D. * [...] this encounter H&P Notes * Deonna Rasheed, DIPLOMA MEDICAL ASSISTANT - 07/26/2018 11:05 AM EDT Cardiology Admission H&P Patient Name: Agata Flores Date of : 1945 Age: 72 y.o. Hospital Admit Date: 07/26/2018 Inpatient Attending: Cameron Mahmood MD PCP: Agata Barrera, Presenting Diagnosis/Chief Complaint: Chest pressure Active Problem List: Active Hospital Problems Diagnosis ??? ASCVD (arteriosclerotic cardiovascular disease) PCI in 2005 at [facility]: stents to LAD x2, LCx [...] x2, distal LCx x2, ramus x1 at [facility]), HTN, HLD, persistent a-fib (diagnosed 6 weeks ago, s/p DCCV 3 weeks ago, on xarelto), and brain abscess (s/p surgery and abx treatment in 2014) who presented to [facility] with progressive dyspnea and lightheadedness on [...] presumed to be in sinus rhythm. His rn iv therapy, Dr. Ma, had also scheduled him for an outpatient nuclear stress test to be done in the coming weeks. On Friday, 07/24, he had an episode of chest pressure, occurring with his shortness of breath and lightheadedness on exertion. It was relieved with rest. He went to [facility] ED and was in a-fib with HR 80. Troponins were negative, EKG was without concerning findings. He was admitted to await transfer to [facility] [place] ardiac catheterization, given his history of ASCVD. He had one additional episode of chest pressureon exertion while at [facility], when he had gotten up to [...] past. He was started on aspirin at [facility] without side effects. Past Medical History: Past Medical History: Diagnosis Date ??? A-fib ??? Brain abscess ??? CAD (coronary artery disease) ??? HLD (hyperlipidemia) ??? HTN (hypertension) Surgical History/Problems: Past Surgical History: Procedure Laterality Date ??? PRO STEREO BX/ASPIR/EXCIS, INTRACRANIAL LESN Right 01/27/2015 @STEREOTACTIC BX,ASP, OR EXC.-INTRACRANIAL LESION, W/SCAN performed by Jose Small MD at [facility] MAIN OR ??? PRO STEREOTACTIC CPTR ASSTD PX CRANIAL, INTRADURAL Right 01/27/2015 STEREOTACTIC COMPUTER-ASSTD NAVIGATIONAL CRANIAL INTRADURAL performed by Jose Small MD at [facility] MAIN OR Significant Family History: Family [...] [facility], lives with in [facility]. 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: Review of Systems Constitutional: [...] LAD x2, distalLCx x2, ramus x1 at [facility]), HTN, HLD, persistent a-fib (diagnosed 6 weeks ago, s/p DCCV 3 weeks ago, on xarelto), and brain abscess (s/p surgery and abx treatment in 2014) who presented to [facility] with progressive dyspnea and lightheadedness on [...] 2018 showed EF 60-65%, no WMAs, per [facility] notes) Plan for cardiac catheterization tomorrow No plavix or heparin at this time Continue aspirin, metoprolol, statin, SL nitro prn Persistent a-fib, rate controlled HR controlled in 80s since admission [id number] Score: 4 (age, HTN, CAD) Continue metoprolol [...] with Cameron Mahmood MD. Deonna Rasheed, MSN, [facility]-, DIPLOMA MEDICAL ASSISTANT 07/26/2018 Pager [phone] Associated attestation - Cameron Mahmood MD - [...] (arteriosclerotic cardiovascular disease) PCI in 2005 at [facility]: stents to LAD x2, LCx [...] get scripts to family to bring to [facility] [place] to [...] 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: MEDICARE Secondary Insurance: [employer] [place] Prescription Coverage: yes Preferred Pharmacy: See demographics Other: n/a Primary Care Provider: Agata Barrera DO [phone] Patient/Caregiver Goals of Treatment: To figure out [...] abx treatment in 2015) who presented to [facility] with dyspnea, lightheadedness and chest pressure. ??Plan is for NENO tomorrow. Pt is independent with no home care needs identified. Plan: DC home/ Self care A member of the Care Management team will continue to monitor progress, follow for continuity of care and assist with transition of care planning. Corazon Allen, RN Pager: [phone] * Consult Note - Danuta Kerr RN - 07/28/2018 9:47 AM EDT [facility] RESPONSE TEAM NOTE Name: Agata Flores Age: 72 y.o. Sex; Male Date of : 1945 Responding Members: Patt Kerr RN, Carmen Goetz RCP, Karen Martin RCP, Cindy LAY Date/Time of Admission: 07/26/2018 11:01 AM Unit/Room: [facility] Service: Cardiology Time Activated: 0831 Time Arrived: 0834 Time at bedside: 60 minutes Indication for Consult: LOC ASSESSMENT/INTERVENTION Brief 24 hr history: Cary Andrew page received at 0831. On arrival to room, Mr. Flores found supine onbathroom floor, wedged against wall. He was awake, in care of several 4E RN's and WARNING ANALYST. No compressions had been administered. He had regular respirations, palp radial, appropriate verbal responses. Skin cool, pale quality, wet (from shower vs diaphoresis). Unprotected fall from toilet confirmed by patient and WARNING ANALYST; CTLS precautions initiated. Per patient report, he had become dizzy at end of hisshower, had seated self on toilet and pulled cord in bathroom for assist. WARNING ANALYST responded, left to obtain additional assist and on return found Mr. Flores on bathroom floor. Concern for initial status pr ompted Code Blue activation. Per report, likely full LOC as patient stated I sat on the toilet andthe next I knew I was on the floor. LOC described as brief, self resolving. ekg monitor tech had been disconnected for Mr. Flores to [...] x2, distal LCx x2, ramus x1 at [facility]), HTN and HLD. His cardiac enzymes remained negative and his EKGs were not suggestive of ischemia. He was transferred to [facility] [place] cardiac [...] Pertinent Medications: Current Facility-Administered Medications Ordered in [facility] Medication Dose Route Frequency Provider Last Rate Last Dose ??? sodium chloride 0.9% infusion 100 mL/hr Intravenous Continuous Darion Machado MD 100 mL/hr at 07/27/18 1142 100 mL/hr at 07/27/18 1142 ??? rivaroxaban (XARELTO) tablet 20 mg 20 mg Oral Daily with dinner Kathya, Deonna T, DIPLOMA MEDICAL ASSISTANT ??? metoprolol tartrate (LOPRESSOR) tablet 25 mg 25 mg Oral Q6H POPPY Kathya, Deonna T, DIPLOMA MEDICAL ASSISTANT 25 mg at 07/27/18 0612 ??? aspirin EC tablet 81 mg 81 mg Oral Daily Kathya, Deonna T, DIPLOMA MEDICAL ASSISTANT 81 mg at 07/27/18 0811 ??? nitroGLYcerin (NITROSTAT) SL tablet 0.4 mg 0.4 mg Sublingual Q5 Min PRN Kathya, Deonna T, DIPLOMA MEDICAL ASSISTANT ??? acetaminophen (TYLENOL) tablet 650 mg 650 mg Oral Q4H PRN Kathya, Deonna T, DIPLOMA MEDICAL ASSISTANT ??? brimonidine (ALPHAGAN) 0.2 % ophthalmic solution 1 drop 1 drop Both Eyes BID Kathya, Deonna T,DIPLOMA MEDICAL ASSISTANT 1 drop at 07/27/18 0811 And ??? timolol (TIMOPTIC) 0.5 % ophthalmic solution 1 drop 1 drop Both Eyes BID Kathya, Deonna T, DIPLOMA MEDICAL ASSISTANT 1 drop at 07/27/18 0811 ??? rosuvastatin (CRESTOR) tablet 10 mg 10 mg Oral QPM Kathya, Deonna T, DIPLOMA MEDICAL ASSISTANT 10 mg at 07/26/18 1636 No current [facility]-ordered outpatient prescriptions on file. Family History: [...] [facility], lives with in [facility]. Physical Exam: Vital signs: Last value Range [...] 12 lead EK07/27/2018 Atrial fibrillation @ 75; DE 166; QRs 76; QTc 426ms Assessment: Agata [...] to follow patient. Provider: GAGE Aldridge Provider#: [id number] Consult attending physician: Alvaro Maki MD EP Consult positional pager #[phone]([facility]) EP Device interrogation positional pager # [phone] Associated attestation - Fred Maki MD - 07/27/2018 8:08 PM EDT Cardiac Electrophysiology Attending Addendum: The patient was seen, interviewed and examined by me. Pertinent data and results reviewed. Miguel ALMONTE's note above was reviewed by me and agreed with. Specifically, the pertinent diagnoses andrecommendations were discussed with me. Fred Maki MD, PhD, [facility] Cardiac Electrophysiology * Plan of Care [...] further details. Deonna Rasheed APRN 07/26/2018 Pager [phone] documented in this encounter Plan of Treatment Pending Results Name Type Priority Associated Diagnoses [...] Routine 07/27/2018 3:46 AM EDT CARDIAC ENZYMES ([facility] STAT 07/26/2018 10:30 PM EDT CARDIAC ENZYMES ([facility] STAT 07/26/2018 4:31 PM EDT SCAN, PERIPHERAL BLOOD STAT 8 11:44 AM EDT HEMOGRAM STAT 07/26/2018 11:44 AM EDT DIFFERENTIAL, AUTOMATED STAT 07/26/20 18 11:44 AM EDT CARDIAC ENZYMES ([facility] STAT 07/26/2018 11:44 AM EDT APTT STAT [...] 11:14 AM EDT Chest pain, unspecified type [employer] [facility] HAND SCAN 07/26/2018 12:00 AM EDT documented in this encounter Results * EKG 12 Lead (08/01/2018 11:02 AM EDT) Ventricular rate 52 BPM MUSE SYSTEM Atrial Rate 53 BPM MUSE SYSTEM QRS Duration 76 ms MUSE SYSTEM Q-T Interval 482 ms MUSE SYSTEM QTC Calculated (Bezet) 448 ms MUSE SYSTEM Calculated P [place] 62 degrees MUSE SYSTEM Calculated R [place] 24 degrees MUSE SYSTEM Calculated T [place] 121 degrees MUSE SYSTEM INTERPRETATION Sinus bradycardia [...] 3:35 AM EDT) Neutrophil % 38.8 % [facility] Neutrophil Absolute 5.48 1.70 - 6.10 x10(3)/mc L [facility] Lymph % 15.9 % [facility] Lymphocytes Abs 2.2 0.9 - 3.2 x10(3)/mc L [facility] Monocyte % 7.1 % [facility] Monocyte Abs 1.0(H) 0.3 - 0.9 x10(3)/mc L [facility] Eos % 37.5 % [facility] Eosinophils Abs 5.3(H) 0.0 - 0.4 x10(3)/ L [facility] Basophil % 0.5 % [facility] Baso Absolute 0.1 0.0 - 0.1 x10(3)/[facility] Immature Gran % 0.20 % [facility] Comment: Immature granulocytes(IG's)percentage and absolute count will include metamyelocytes, myelocytes, and promyelocytes. Blood smears from CBCs yielding IG's will be scanned manually for concordance. If this scan disagrees with the automated IG or if promyelocytes are noted, a manual differential will be performed. Immature Gran Absolute 0.03 0.00 - 0.04 x10(3)/[facility] Blood specimen (specimen) 08/01/2018 3:35 AM EDT 08/01/2018 3:56 AM EDT Narrative Resulting Agency Comment Spec In Lab Elena Hooks APRN HEMATOLOGY ORDERABLE S [facility] [place] [address] * (ABNORMAL) Hemogram (08/01/2018 3:35 AM EDT) White Blood Cell 14.1(H) 4.0 - 9.5 x10(3)/ L [facility] Red Blood Cell 4.27(L) 4.58 - 5.54 x10(6)/ L [facility] Hemoglobin 13.9 13.7 - 16.5 gm/dL [facility] Hematocrit 38.9(L) 40.5 - 48.5 % [facility] Mean Cell Volume 91.1 82.9 - 93.1 fL [facility] Mean Cell Hemoglobin 32.6(H) 27.5 - 32.1 pg [facility] Mean Cell Hemoglobin Concentration 35.7 32.0 - 35.7 gm/dL [facility] Platelet 198 145 - 357 x10(3)/mc L [facility] RDW Standard Deviation 41.2 36.0 - 45.0 fL [facility] RDW coefficient of variation 12.6 11.4 - 13.8 % [facility] Mean Platelet Volume 11.3 7.6 - 12.9 fL [facility] NRBC% auto 0.0 % [facility] NRBC Absolute 0.000 0.000 - 0.000 x10(3)/mc L [facility] Blood specimen (specimen) 08/01/2018 3:35 AM EDT 08/01/2018 3:56 AM EDT Narrative Resulting Agency Comment Spec In Lab Elena Hooks APRN HEMATOLOGY ORDERABLE S Performing Organization Address City/State/[facility] Co de Phone Number [facility] [place] [address] * (ABNORMAL) BMP w/fasting Glucose (08/01/2018 3:35 AM EDT) Glucose Fasting 110(H) 65 - 99 mg/dL [facility] Comment: ?Fasting* Glucose Interpretive [...] of Diabetes Mellitus, Position Statement from the [place] [employer]. ??Diabetes Care, Volume 33, Supplement 1, Dec 2009 Blood Urea Nitrogen 22(H) 10 - 20 mg/dL [facility] Creatinine 0.79(L) 0.80 - 1.50 mg/dL [facility] Sodium 137 135 - 145 mmol/L [facility] Potassium 4.4 3.5 - 5.0 mmol/L [facility] Comment: Please note: ??Patients with WBC >100,000 may have falsely elevated Potassium levels. ??For accurate Potassium quantification in these patients send serum separator tube (gold top) for subsequent determinations. ??Contact the Clinical Chemistry Laboratory if there are any questions. Chloride 102 98 - 107 mmol/L [facility] Carbon Dioxide 25 22 - 31 mmol/L [facility] Anion Gap 10 5 - 15 mmol/L [facility] Calcium 9.4 8.5 - 10.5 mg/dL [facility] Est Glomerular Filtration Rate 90 >=60 mL/min/1. 73 m?? [facility] Comment: The eGFR was calculated using the CKD-EPI equation. As with all creatinine based estimates of kidney function, eGFR values calculated with the CKD-EPI equation are not accurate in patients with acute kidney failure, extremes of body mass or the acutely ill. [email or web address] [place] eGFR 104 >=60 mL/min/1. 73 m?? [facility] Comment: The eGFR was calculated using the CKD-EPI equation. As with all creatinine based estimates of kidney function, eGFR values calculated with the CKD-EPI equation are not accurate in patients with acute kidney failure, extremes of body mass or the acutely ill. [email or web address] Blood specimen (specimen) 08/01/2018 3:35 AM EDT 08/01/2018 3:56 AM EDT Narrative Resulting Agency Comment Spec In Lab Elena Hooks APRN CHEMISTRY ORDERABLES [facility] [place] [address] * EKG 12 Lead (08/01/2018 12:00 AM EDT) Ventricular rate 58 BPM MUSE SYSTEM Atrial Rate 58 BPM MUSE SYSTEM P-R Interval 158 ms MUSE SYSTEM QRS Duration 82 ms MUSE SYSTEM Q-T Interval 530 ms MUSE SYSTEM QTC Calculated (Bezet) 520 ms MUSE SYSTEM Calculated P [place] 74 degrees MUSE SYSTEM Calculated R [place] 45 degrees MUSE SYSTEM Calculated T [place] 97 degrees MUSE SYSTEM INTERPRETATION Sinus bradycardia with marked sinus arrhythmia Low voltage QRS Nonspecific T wave abnormality Prolonged QT Abnormal ECG When compared with ECG of 31-JUL-2018 14:14, (unconfirmed) Premature atrial complexes are no longer Present Nonspecific T wave abnormality has replaced inverted T waves in Lateral leads QT has lengthened Confirmed by MD Suarez Eric ([id number]) on 08/01/2018 1:32:14 PM MUSE SYSTEM 08/01/2018 12:0 0 AM EDT 08/01/2018 1:32 PM EDT Elena Hooks APRN ECG ORDERABLES Performing Organization Address [facility] Number MUSE SYSTEM * EKG 12 Lead (07/31/2018 2:14 PM EDT) Ventricular rate 56 BPM MUSE SYSTEM Atrial Rate 56 BPM MUSE SYSTEM P-R Interval 162 ms MUSE SYSTEM QRS Duration 76 ms MUSE SYSTEM Q-T Interval 482 ms MUSE SYSTEM QTC Calculated (Bezet) 465 ms MUSE SYSTEM Calculated P [place] 70 degrees MUSE SYSTEM Calculated R [place] 17 degrees MUSE SYSTEM Calculated T [place] 134 degrees MUSE SYSTEM INTERPRETATION Sinus bradycardia with Premature atrial complexes Low voltage QRS T wave abnormality, consider lateral ischemia Prolonged QT Abnormal ECG When compared with ECG of 31-JUL-2018 08:32, (unconfirmed) Premature atrial complexes are now Present Nonspecific T wave abnormality, improved in Inferior leads Confirmed by MD Suarez Eric ([id number]) on 08/01/2018 1:31:56 PM MUSE SYSTEM 07/31/2018 2:14 PM EDT 08/01/2018 1:31 PM EDT Elena Hooks APRN ECG ORDERABLES Performing Organization Address [facility] Phone Number MUSE SYSTEM * EKG 12 Lead (07/31/2018 8:32 AM EDT) Ventricular rate 54 BPM MUSE SYSTEM Atrial Rate 54 BPM MUSE SYSTEM P-R Interval 160 ms MUSE SYSTEM QRS Duration 78 ms MUSE SYSTEM Q-T Interval 498 ms MUSE SYSTEM QTC Calculated (Bezet) 472 ms MUSE SYSTEM Calculated P [place] 67 degrees MUSE SYSTEM Calculated R [place] 12 degrees MUSE SYSTEM Calculated T [place] 128 degrees MUSE SYSTEM INTERPRETATION Sinus bradycardia with marked sinus arrhythmia Low voltage QRS Nonspecific T wave abnormality Prolonged QT Abnormal ECG When compared with ECG of 31-JUL-2018 07:44, No significant change was found Confirmed by Denys Miller MD ([id number]) on 07/31/2018 5:01:20 PM MUSE SYSTEM 07/31/2018 8:32 AM EDT 07/31/2018 5:01 PM EDT Ant Suarez MD ECG ORDERABLES Performing Organization Address [facility] Co de Phone Number MUSE SYSTEM * EKG 12 Lead (07/31/2018 7:44 AM EDT) Ventricular rate 56 BPM MUSE SYSTEM Atrial Rate 56 BPM MUSE SYSTEM P-R Interval 164 ms MUSE SYSTEM QRS Duration 84 ms MUSE SYSTEM Q-T Interval 494 ms MUSE SYSTEM QTC Calculated (Bezet) 476 ms MUSE SYSTEM Calculated P [place] 71 degrees MUSE SYSTEM Calculated R [place] 15 degrees MUSE SYSTEM Calculated T [place] 127 degrees MUSE SYSTEM INTERPRETATION Sinus bradycardia [...] Hooks APRN ECG ORDERABLES Performing Organization Address City/[facility]/ZIP Co de Phone Number MUSE SYSTEM * (ABNORMAL) Differential, Automated (07/31/2018 6:33 AM EDT) Neutrophil % 39.3 % [facility] Neutrophil Absolute 5.61 1.70 - 6.10 x10(3)/mc L [facility] Lymph % 13.7 % [facility] Lymphocytes Abs 2.0 0.9 - 3.2 x10(3)/ L [facility] Monocyte % 7.4 % [facility] Monocyte Abs 1.0(H) 0.3 - 0.9 x10(3)/[facility] Eos % 38.8 % [facility] Eosinophils Abs 5.5(H) 0.0 - 0.4 x10(3)/[facility] Basophil % 0.6 % [facility] Baso Absolute 0.1 0.0 - 0.1 x10(3)/[facility] Immature Gran % 0.20 % [facility] Comment: Immature granulocytes(IG's)percentage and absolute count will include metamyelocytes, myelocytes, and promyelocytes. Blood smears from CBCs yielding IG's will be scanned manually for concordance. If this scan disagrees with the automated IG or if promyelocytes are noted, a manual differential will be performed. Immature Gran Absolute 0.03 0.00 - 0.04 x10(3)/[facility] Blood specimen (specimen) 07/31/2018 6:33 AM EDT 07/31/2018 6:52 AM EDT Narrative Resulting Agency Comment Spec In Lab Elena Hooks APRN HEMATOLOGY ORDERABLE S [facility] [place] [address] * (ABNORMAL) Hemogram (07/31/2018 6:33 AM EDT) White Blood Cell 14.3(H) 4.0 - 9.5 x10(3)/[facility] Red Blood Cell 4.92 4.58 - 5.54 x10(6)/[facility] Hemoglobin 15.8 13.7 - 16.5 gm/dL [facility] Hematocrit 45.2 40.5 - 48.5 % [facility] Mean Cell Volume 91.9 82.9 - 93.1 fL [facility] Mean Cell Hemoglobin 32.1 27.5 - 32.1 pg [facility] Mean Cell Hemoglobin Concentration 35.0 32.0 - 35.7 gm/dL [facility] Platelet 183 145 - 357 x10(3)/mc L [facility] RDW Standard Deviation 42.5 36.0 - 45.0 fL [facility] RDW coefficient of variation 12.6 11.4 - 13.8 % [facility] Mean Platelet Volume 11.0 7.6 - 12.9 fL [facility] NRBC% auto 0.0 % [facility] NRBC Absolute 0.000 0.000 - 0.000 x10(3)/mc L [facility] Blood specimen (specimen) 07/31/2018 6:33 AM EDT 07/31/2018 6:52 AM EDT Narrative Resulting Agency Comment Spec In Lab Elena Hooks APRN HEMATOLOGY ORDERABLE S [facility] [place] [address] * (ABNORMAL) BMP w/fasting Glucose (07/31/2018 6:33 AM EDT) Glucose Fasting 107(H) 65 - 99 mg/dL [facility] Comment: ?Fasting* Glucose Interpretive [...] of Diabetes Mellitus, Position Statement from the [place] [employer]. ??Diabetes Care, Volume 33, Supplement 1, Dec 2009 Blood Urea Nitrogen 22(H) 10 - 20 mg/dL [facility] Creatinine 0.75(L) 0.80 - 1.50 mg/dL [facility] Sodium 140 135 - 145 mmol/L [facility] Potassium 4.3 3.5 - 5.0 mmol/L [facility] Comment: Please note: ??Patients with WBC >100,000 may have falsely elevated Potassium levels. ??For accurate Potassium quantification in these patients send serum separator tube (gold top) for subsequent determinations. ??Contact the Clinical Chemistry Laboratory if there are any questions. Chloride 100 98 - 107 mmol/L [facility] Carbon Dioxide 27 22 - 31 mmol/L [facility] Anion Gap 13 5 - 15 mmol/L [facility] Calcium 9.6 8.5 - 10.5 mg/dL [facility] Est Glomerular Filtration Rate 92 >=60 mL/min/1. 73 m?? [facility] Comment: The eGFR was calculated using the CKD-EPI equation. As with all creatinine based estimates of kidney function, eGFR values calculated with the CKD-EPI equation are not accurate in patients with acute kidney failure, extremes of body mass or the acutely ill. [email or web address] eGFR 106 >=60 mL/min/1. 73 m?? [facility] Comment: The eGFR was calculated using the CKD-EPI equation. As with all creatinine based estimates of kidney function, eGFR values calculated with the CKD-EPI equation are not accurate in patients with acute kidney failure, extremes of body mass or the acutely ill. [email or web address] Blood specimen (specimen) 07/31/2018 6:33 AM EDT 07/31/2018 6:52 AM EDT Narrative Resulting Agency Comment Spec In Lab Elena Hooks APRN CHEMISTRY ORDERABLES [facility] [place] [id number] * EKG 12 Lead (07/31/2018 12:17 AM EDT) Ventricular rate 68 BPM MUSE SYSTEM Atrial Rate 68 BPM MUSE SYSTEM P-R Interval 176 ms MUSE SYSTEM QRS Duration 74 ms MUSE SYSTEM Q-T Interval 490 ms MUSE SYSTEM QTC Calculated (Bezet) 521 ms MUSE SYSTEM Calculated P [place] 80 degrees MUSE SYSTEM Calculated R [place] 22 degrees MUSE SYSTEM Calculated T [place] 73 degrees MUSE SYSTEM INTERPRETATION Sinus rhythm [...] Hooks APRN ECG ORDERABLES Performing Organization Address [facility] Co de Phone Number MUSE SYSTEM * EKG 12 Lead (07/30/2018 12:36 PM EDT) Ventricular rate 58 BPM MUSE SYSTEM Atrial Rate 58 BPM MUSE SYSTEM P-R Interval 170 ms MUSE SYSTEM QRS Duration 74 ms MUSE SYSTEM Q-T Interval 490 ms MUSE SYSTEM QTC Calculated (Bezet) 481 ms MUSE SYSTEM Calculated P [place] 73 degrees MUSE SYSTEM Calculated R [place] 20 degrees MUSE SYSTEM Calculated T [place] 149 degrees MUSE SYSTEM INTERPRETATION Sinus bradycardia [...] PM EDT Fred Maki MD ECG ORDERABLES Performing Organization Address City/[facility]/ZIP Co de Phone Number MUSE SYSTEM * CARDIOVERSION-OR (07/30/2018 12:12 PM [...] (arteriosclerotic cardiovascular disease) ??PCI in 2005 at [facility]: stents to LAD x2, LCx [...] (Bezet) 522 ms MUSE SYSTEM Calculated R [place] 21 degrees MUSE SYSTEM Calculated T [place] -141 degrees MUSE SYSTEM INTERPRETATION Atrial flutter with variable A-V block Abnormal ECG When compared with ECG of 30-JUL-2018 07:34, No significant change was found Confirmed by MD PAT, KURTIS ([id number]) on 07/30/2018 4:46:36 PM MUSE SYSTEM 07/30/2018 10:0 4 AM EDT 07/30/2018 4:46 PM EDT Elena Hooks DIPLOMA MEDICAL ASSISTANT ECG ORDERABLES Performing Organization Address [facility] Co de Phone Number MUSE SYSTEM * EKG 12 Lead (07/30/2018 7:34 AM EDT) Ventricular rate 90 BPM MUSE SYSTEM Atrial Rate 90 BPM MUSE SYSTEM QRS Duration 74 ms MUSE SYSTEM Q-T Interval 392 ms MUSE SYSTEM QTC Calculated (Bezet) 479 ms MUSE SYSTEM Calculated R [place] 22 degrees MUSE SYSTEM Calculated T [place] 107 degrees MUSE SYSTEM INTERPRETATION Atrial flutter with variable A-V block with premature ventricular or aberrantly conducted complexes Abnormal ECG When compared with ECG of 29-JUL-2018 23:04, (unconfirmed) Current undetermined rhythm precludes rhythm comparison, needs review No significant change was found Confirmed by MD Chamberlain Timothy ([id number]) on 07/30/2018 3:49:11 PM MUSE SYSTEM 07/30/2018 7:34 AM EDT 07/30/2018 3:49 PM EDT Elena J King JOSE ECG ORDERABLES Performing Organization Address [facility] de Phone Number MUSE SYSTEM * (ABNORMAL) Differential, Automated (07/30/2018 4:06 AM EDT) Neutrophil % 57.5 % [facility] Neutrophil Absolute 9.87(H) 1.70 - 6.10 x10(3)/mc L [facility] Lymph % 11.4 % [facility] Lymphocytes Abs 2.0 0.9 - 3.2 x10(3)/mc L [facility] Monocyte % 7.5 % [facility] Monocyte Abs 1.3(H) 0.3 - 0.9 x10(3)/mc L [facility] Eos % 23.0 % [facility] Eosinophils Abs 4.0(H) 0.0 - 0.4 x10(3)/[facility] Basophil % 0.3 % [facility] Baso Absolute 0.0 0.0 - 0.1 x10(3)/[facility] Immature Gran % 0.30 % [facility] Comment: Immature granulocytes(IG's)percentage and absolute count will include metamyelocytes, myelocytes, and promyelocytes. Blood smears from CBCs yielding IG's will be scanned manually for concordance. If this scan disagrees with the automated IG or if promyelocytes are noted, a manual differential will be performed. Immature Gran Absolute 0.06(H) 0.00 - 0.04 x10(3)/[facility] Blood specimen (specimen) 07/30/2018 4:06 AM EDT 07/30/2018 4:38 AM EDT Narrative Resulting Agency Comment Spec In Lab Deonna Rasheed DIPLOMA MEDICAL ASSISTANT HEMATOLOGY ORDERAB LES [facility] [place] [address] * (ABNORMAL) Hemogram (07/30/2018 4:06 AM EDT) White Blood Cell 17.2(H) 4.0 - 9.5 x10(3)/[facility] Red Blood Cell 4.75 4.58 - 5.54 x10(6)/[facility] Hemoglobin 15.0 13.7 - 16.5 gm/dL [facility] Hematocrit 43.5 40.5 - 48.5 % [facility] Mean Cell Volume 91.6 82.9 - 93.1 fL [facility] Mean Cell Hemoglobin 31.6 27.5 - 32.1 pg [facility] Mean Cell Hemoglobin Concentration 34.5 32.0 - 35.7 gm/dL [facility] Platelet 197 145 - 357 x10(3)/[facility] RDW Standard Deviation 42.6 36.0 - 45.0 [facility] RDW coefficient of variation 12.8 11.4 - 13.8 % [facility] Mean Platelet Volume 10.9 7.6 - 12.9 [facility] NRBC% auto 0.0 % [facility] NRBC Absolute 0.000 0.000 - 0.000 x10(3)/mc L [facility] Blood specimen (specimen) 07/30/2018 4:06 AM EDT 07/30/2018 4:38 AM EDT Narrative Resulting Agency Comment Spec In Lab Deonna Rasheed DIPLOMA MEDICAL ASSISTANT HEMATOLOGY ORDERAB LES Performing Organization Address [facility]/ZIP Co de Phone Number [facility] [place] [address] * Magnesium (07/30/2018 4:06 AM EDT) Magnesium 0.83 0.69 - 1.07 mmol/L [facility] Blood specimen (specimen) 07/30/2018 4:06 AM EDT 07/30/2018 4:38 AM EDT Narrative Resulting Agency Comment Spec In Lab Deonna Rasheed DIPLOMA MEDICAL ASSISTANT CHEMISTRY ORDERABL ES Performing Organization Address [facility] Co de Phone Number [facility] [place] [address] * (ABNORMAL) BMP w/fasting Glucose (07/30/2018 4:06 AM EDT) Glucose Fasting 110(H) 65 - 99 mg/dL [facility] Comment: ?Fasting* Glucose Interpretive [...] of Diabetes Mellitus, Position Statement from the [place] [employer]. ??Diabetes Care, Volume 33, Supplement 1, Dec 2009 Blood Urea Nitrogen 19 10 - 20 mg/dL [facility] Creatinine 0.81 0.80 - 1.50 mg/dL [facility] Sodium 138 135 - 145 mmol/L [facility] Potassium 4.1 3.5 - 5.0 mmol/L [facility] Comment: Please note: ??Patients with WBC >100,000 may have falsely elevated Potassium levels. ??For accurate Potassium quantification in these patients send serum separator tube (gold top) for subsequent determinations. ??Contact the Clinical Chemistry Laboratory if there are any questions. Chloride 101 98 - 107 mmol/L [facility] Carbon Dioxide 24 22 - 31 mmol/L [facility] Anion Gap 13 5 - 15 mmol/L [facility] Calcium 9.3 8.5 - 10.5 mg/dL [facility] Est Glomerular Filtration Rate 89 >=60 mL/min/1. 73 m?? [facility] Comment: The eGFR was calculated using the CKD-EPI equation. As with all creatinine based estimates of kidney function, eGFR values calculated with the CKD-EPI equation are not accurate in patients with acute kidney failure, extremes of body mass or the acutely ill. [email or web address] [place] eGFR 103 >=60 mL/min/1. 73 m?? [facility] Comment: The eGFR was calculated using the CKD-EPI equation. As with all creatinine based estimates of kidney function, eGFR values calculated with the CKD-EPI equation are not accurate in patients with acute kidney failure, extremes of body mass or the acutely ill. [email or web address] [place] Blood specimen (specimen) 07/30/2018 4:06 AM EDT 07/30/2018 4:38 AM EDT Narrative Resulting Agency Comment Spec In Lab Deonna Eneida Kathya DIPLOMA MEDICAL ASSISTANT CHEMISTRY ORDERABL ES Performing Organization Address [facility] Co de Phone Number [facility] [place] [address] * EKG 12 Lead (07/29/2018 11:04 PM EDT) Ventricular rate 101 BPM MUSE SYSTEM Atrial Rate 104 BPM MUSE SYSTEM P-R Interval 176 ms MUSE SYSTEM QRS Duration 78 ms MUSE SYSTEM Q-T Interval 380 ms MUSE SYSTEM QTC Calculated (Bezet) 492 ms MUSE SYSTEM Calculated P [place] 106 degrees MUSE SYSTEM Calculated R [place] 26 degrees MUSE SYSTEM Calculated T [place] 167 degrees MUSE SYSTEM INTERPRETATION Probable Atrial flutter with variable A-V block PVCs vs abbarrently conducted supraventricular beats Abnormal ECG When compared with ECG of 29-JUL-2018 07:21, No significant change was found Confirmed by MD PAT, KURTIS ([id number]) on 07/30/2018 4:45:35 PM MUSE SYSTEM 07/29/2018 11:0 4 PM EDT 07/30/2018 4:45 PM EDT Deonna Ordoñezr DIPLOMA MEDICAL ASSISTANT ECG ORDERABLES Performing Organization Address [facility] de Phone Number MUSE SYSTEM * NENO W LMTD SPECTRAL DOPPLER COLOR DOPPLER (07/29/2018 3:33 PM EDT) EF 65 HEARTLAB SYSTEM Anatomical Region Laterality Modality Other 07/29/2018 Narrative 07/29/2018 3:51 PM EDT Procedure: ?Transesophageal Echocardiogram Patient: ?YOAN Haines ?(Age): 1945(72y) Med Rec#: ? [id number] ?Sex: ?M ? Site Loc: ? [facility] [place] ?Ht / Wt: ??188(cm)/97(kg) Pt. Loc: ?News Videographer ?BSA: ?2.24 Study Date: ?? 07/29/2018 ?Pt. Type: Tape: ? Referring: CLAUDIA JONES Reading: Ant Suarez ([id number]) Research Intern: Tricia Donis ([id number]) Interpreting Fellow: Tricia Donis ([id number]) Diagnosis: *Unspecified atrial fibrillation (I48.91) Rhythm: ? [...] under the supervision of Dr. Suarez. ?[facility] [place] Lab [...] 07/29/2018 15:50:44 Images reviewed and interpretation verified [facility] Cardiac Ultrasound Laboratory Procedure Note Ant Suarez MD - 07/29/2018 Procedure: Transesophageal Echocardiogram Patient: YOAN AVELAR(Age): 1945(72y) Med Rec#: [id number] Sex: M [place] Loc[place] [facility] [place] Ht / Wt: 188(cm)/97(kg) Pt. Loc: News Videographer BSA: 2.24 Study Date: 07/29/2018 Pt. Type: Tape: Referring: CLAUDIA JONES Reading: Ant Suarez ([id number]) Research Intern: Tricia Donis ([id number]) Interpreting Fellow: Tricia Donis ([id number]) Diagnosis: *Unspecified atrial fibrillation (I48.91) Rhythm: A-Fib [...] under the supervision of Dr. Suarez. [place] [facility] [place] [...] 07/29/2018 15:50:44 Images reviewed and interpretation verified [facility] Cardiac Ultrasound Laboratory Deonna Rasheed APRN ECHO ORDERABLES * Urine Hold (07/29/2018 1:38 PM EDT) Hold, Urine Sample in lab. [facility] Urine specimen (specimen) Urine / Unknown 07/29/2018 1:38 PM EDT 07/29/2018 2:45 PM EDT Elena Hooks APRN URINE ORDERABLES [facility] [place] [address] * Urinalysis with reflex Culture (07/29/2018 1:38 PM EDT) Glucose, Urine Dipstick Negative Negative mg/dL [facility] Protein, Urine Dipstick Negative Negative mg/dL [facility] Bilirubin, Urine Dipstick Negative Negative mg/dL [facility] Comment: Clinical correlation required for positive Urine Bilirubin results as false positive may occur with some drugs and drug related products. If a false positive is suspected a serum total bilirubin should be considered if clinically indicated. Urobilinogen, Urine Dipstick Normal Normal mg/dL [facility] pH, Urn (dipstick) 5.0 5.0 - 8.0 [facility] Blood, Urine Dipstick Negative Negative mg/dL [facility] Ketone, Urine Dipstick Negative Negative mg/dL [facility] Nitrite, Urine Dipstick Negative Negative [facility] Leukocytes, Urine Dipstick Negative Negative [facility] Appearance, Urine Dipstick Clear Clear [facility] Specific [place] Urine Automated 1.020 1.002 - 1.030 [facility] Color, Urine Dipstick Yellow Yellow [facility] Reflex to Culture No [facility] Urine specimen obtained by clean catch procedure (specimen) 07/29/2018 1:38 PM EDT 07/29/2018 2:45 PM EDT Narrative Resulting Agency Comment Spec In Lab Elena Hooks DIPLOMA MEDICAL ASSISTANT URINE ORDERABLES Performing Organization Address [facility]/ZIP Co de Phone Number [facility] [place] [address] * EKG 12 Lead (07/29/2018 7:21 AM EDT) Ventricular rate 84 BPM MUSE SYSTEM Atrial Rate 375 BPM MUSE SYSTEM QRS Duration 72 ms MUSE SYSTEM Q-T Interval 400 ms MUSE SYSTEM QTC Calculated (Bezet) 472 ms MUSE SYSTEM Calculated R [place] 9 degrees MUSE SYSTEM Calculated T [place] 10 degrees MUSE SYSTEM INTERPRETATION Atrial fibrillation Abnormal ECG When compared with ECG of 28-JUL-2018 08:44, (unconfirmed) No significant change was found I personally reviewed the tracing and edited the fellows interpretation Confirmed by fellow MD Langley Daniel ([id number]) on 07/29/2018 2:47:56 PM Confirmed by MD Segura Shawn M. ([id number]) on 07/29/2018 4:42:19 PM MUSE SYSTEM 07/29/2018 7:21 AM EDT 07/29/2018 4:42 PM EDT Deonna Rasheed DIPLOMA MEDICAL ASSISTANT ECG ORDERABLES Performing Organization Address City/[facility]/ZIP Co de Phone Number MUSE SYSTEM * (ABNORMAL) Differential, Automated (07/29/2018 5:17 AM EDT) Neutrophil % 50.1 % [facility] Neutrophil Absolute 7.84(H) 1.70 - 6.10 x10(3)/[facility] Lymph % 11.6 % [facility] Lymphocytes Abs 1.8 0.9 - 3.2 x10(3)/[facility] Monocyte % 6.9 % [facility] Monocyte Abs 1.1(H) 0.3 - 0.9 x10(3)/[facility] Eos % 30.7 % [facility] Eosinophils Abs 4.8(H) 0.0 - 0.4 x10(3)/[facility] Basophil % 0.3 % [facility] Baso Absolute 0.0 0.0 - 0.1 x10(3)/[facility] Immature Gran % 0.40 % [facility] Comment: Immature granulocytes(IG's)percentage and absolute count will include metamyelocytes, myelocytes, and promyelocytes. Blood smears from CBCs yielding IG's will be scanned manually for concordance. If this scan disagrees with the automated IG or if promyelocytes are noted, a manual differential will be performed. Immature Gran Absolute 0.06(H) 0.00 - 0.04 x10(3)/[facility] Blood specimen (specimen) 07/29/2018 5:17 AM EDT 07/29/2018 5:44 AM EDT Narrative Resulting Agency Comment Spec In Lab Deonna Rasheed DIPLOMA MEDICAL ASSISTANT HEMATOLOGY ORDERAB LES [facility] [place] [address] * (ABNORMAL) Hemogram (07/29/2018 5:17 AM EDT) White Blood Cell 15.6(H) 4.0 - 9.5 x10(3)/mc L [facility] Red Blood Cell 4.93 4.58 - 5.54 x10(6)/ L [facility] Hemoglobin 15.7 13.7 - 16.5 gm/dL [facility] Hematocrit 45.2 40.5 - 48.5 % [facility] Mean Cell Volume 91.7 82.9 - 93.1 [facility] Mean Cell Hemoglobin 31.8 27.5 - 32.1 pg [facility] Mean Cell Hemoglobin Concentration 34.7 32.0 - 35.7 gm/dL [facility] Platelet 208 145 - 357 x10(3)/ L [facility] RDW Standard Deviation 42.3 36.0 - 45.0 [facility] RDW coefficient of variation 12.7 11.4 - 13.8 % [facility] Mean Platelet Volume 11.1 7.6 - 12.9 [facility] NRBC% auto 0.0 % [facility] NRBC Absolute 0.000 0.000 - 0.000 x10(3)/[facility] Blood specimen (specimen) 07/29/2018 5:17 AM EDT 07/29/2018 5:44 AM EDT Narrative Resulting Agency Comment Spec In Lab Deonna Rasheed APRN HEMATOLOGY ORDERAB LES Performing Organization Address City/[facility] de Phone Number [facility] [place] [address] * Magnesium (07/29/2018 5:17 AM EDT) Magnesium 0.85 0.69 - 1.07 mmol/L [facility] Blood specimen (specimen) 07/29/2018 5:17 AM EDT 07/29/2018 5:44 AM EDT Narrative Resulting Agency Comment Spec In Lab Deonna Rasheed DIPLOMA MEDICAL ASSISTANT CHEMISTRY ORDERABL ES [facility] [place] [address] * (ABNORMAL) BMP w/fasting Glucose (07/29/2018 5:17 AM EDT) Glucose Fasting 107(H) 65 - 99 mg/dL [facility] Comment: ?Fasting* Glucose Interpretive [...] of Diabetes Mellitus, Position Statement from the [place] [employer]. ??Diabetes Care, Volume 33, Supplement 1, Dec 2009 Blood Urea Nitrogen 20 10 - 20 mg/dL [facility] Creatinine 0.86 0.80 - 1.50 mg/dL [facility] Sodium 139 135 - 145 mmol/L [facility] Potassium 4.3 3.5 - 5.0 mmol/L [facility] Comment: Please note: ??Patients with WBC >100,000 may have falsely elevated Potassium levels. ??For accurate Potassium quantification in these patients send serum separator tube (gold top) for subsequent determinations. ??Contact the Clinical Chemistry Laboratory if there are any questions. Chloride 102 98 - 107 mmol/L [facility] Carbon Dioxide 25 22 - 31 mmol/L [facility] Anion Gap 12 5 - 15 mmol/L [facility] Calcium 9.4 8.5 - 10.5 mg/dL [facility] Est Glomerular Filtration Rate 87 >=60 mL/min/1. 73 m?? [facility] Comment: The eGFR was calculated using the CKD-EPI equation. As with all creatinine based estimates of kidney function, eGFR values calculated with the CKD-EPI equation are not accurate in patients with acute kidney failure, extremes of body mass or the acutely ill. [email or web address] eGFR 100 >=60 mL/min/1. 73 m?? [facility] Comment: The eGFR was calculated using the CKD-EPI equation. As with all creatinine based estimates of kidney function, eGFR values calculated with the CKD-EPI equation are not accurate in patients with acute kidney failure, extremes of body mass or the acutely ill. [email or web address] Blood specimen (specimen) 07/29/2018 5:17 AM EDT 07/29/2018 5:44 AM EDT Narrative Resulting Agency Comment Spec In Lab Deonna Monique Kathya DIPLOMA MEDICAL ASSISTANT CHEMISTRY ORDERABL ES [facility] [place] [address] * CT Cervical Spine wo Contrast (07/28/2018 [...] No acute cervical spine fracture. Elena Hooks APRN [facility] CT ORDERABLES * CT Head wo Contrast [...] * POCT Glucose (07/28/2018 9:12 AM EDT) [facility] Glucose, POC 191 65 - 199 mg/dL [facility] Comment: Supplemental ranges: <140 mg/dL before meals <180 mg/dL all other times of the day Blood specimen (specimen) 07/28/2018 9:12 AM EDT 07/28/2018 9:12 AM EDT Cameron Mahmood MD POINT OF CARE TEST O RDERABLES [facility] [place] [address] * EKG 12 Lead (07/28/2018 8:44 AM EDT) Pathologist [facility] Ventricular rate 77 BPM MUSE SYSTEM Atrial Rate 357 BPM MUSE SYSTEM QRS Duration 76 ms MUSE SYSTEM Q-T Interval 410 ms MUSE SYSTEM QTC Calculated (Bezet) 463 ms MUSE SYSTEM Calculated R [place] 14 degrees MUSE SYSTEM Calculated T [place] 48 degrees MUSE SYSTEM INTERPRETATION Atrial fibrillation Abnormal ECG When compared with ECG of 28-JUL-2018 07:19, No significant change was found I personally reviewed the tracing and edited the fellows interpretation Confirmed by fellow MD Langley Daniel ([id number]) on 07/29/2018 2:53:27 PM Confirmed by MD Segura Shawn M. ([id number]) on 07/29/2018 4:42:14 PM MUSE SYSTEM 07/28/2018 8:44 AM EDT 07/29/2018 4:42 PM EDT Deonna T Kathya DIPLOMA MEDICAL ASSISTANT ECG ORDERABLES Performing Organization Address [facility] Co de Phone Number MUSE SYSTEM * EKG 12 Lead (07/28/2018 7:19 AM EDT) Ventricular rate 81 BPM MUSE SYSTEM Atrial Rate 326 BPM MUSE SYSTEM QRS Duration 76 ms MUSE SYSTEM Q-T Interval 402 ms MUSE SYSTEM QTC Calculated (Bezet) 466 ms MUSE SYSTEM Calculated R [place] 7 degrees MUSE SYSTEM Calculated T [place] 63 degrees MUSE SYSTEM INTERPRETATION Atrial fibrillation Abnormal ECG When compared with ECG of 27-JUL-2018 07:24, No significant change was found I personally reviewed the tracing and edited the fellows interpretation Confirmed by fellow MD Langley Daniel ([id number]) on 07/28/2018 8:28:08 AM Confirmed by MD Segura Shawn M. ([id number]) on 07/28/2018 5:49:00 PM MUSE SYSTEM 07/28/2018 7:19 AM EDT 07/28/2018 5:49 PM EDT Deonna T Kathya DIPLOMA MEDICAL ASSISTANT ECG ORDERABLES Performing Organization Address [facility] de Phone Number MUSE SYSTEM * (ABNORMAL) Differential, Automated (07/28/2018 3:54 AM EDT) Neutrophil % 41.8 % [facility] Neutrophil Absolute 6.28(H) 1.70 - 6.10 x10(3)/mc L [facility] Lymph % 13.3 % [facility] Lymphocytes Abs 2.0 0.9 - 3.2 x10(3)/mc L [facility] Monocyte % 5.8 % [facility] Monocyte Abs 0.9 0.3 - 0.9 x10(3)/[facility] Eos % 38.3 % [facility] Eosinophils Abs 5.8(H) 0.0 - 0.4 x10(3)/[facility] Basophil % 0.6 % [facility] Baso Absolute 0.1 0.0 - 0.1 x10(3)/[facility] Immature Gran % 0.20 % [facility] Comment: Immature granulocytes(IG's)percentage and absolute count will include metamyelocytes, myelocytes, and promyelocytes. Blood smears from CBCs yielding IG's will be scanned manually for concordance. If this scan disagrees with the automated IG or if promyelocytes are noted, a manual differential will be performed. Immature Gran Absolute 0.03 0.00 - 0.04 x10(3)/[facility] Blood specimen (specimen) 07/28/2018 3:54 AM EDT 07/28/2018 4:10 AM EDT Narrative Resulting Agency Comment Spec In Lab Deonna Rasheed APRN HEMATOLOGY ORDERAB LES Performing Organization Address City/State/[facility] Co de Phone Number [facility] [place] [address] * (ABNORMAL) Hemogram (07/28/2018 3:54 AM EDT) White Blood Cell 15.0(H) 4.0 - 9.5 x10(3)/[facility] Red Blood Cell 5.08 4.58 - 5.54 x10(6)/[facility] Hemoglobin 16.3 13.7 - 16.5 gm/dL [facility] Hematocrit 46.4 40.5 - 48.5 % [facility] Mean Cell Volume 91.3 82.9 - 93.1 fL [facility] Mean Cell Hemoglobin 32.1 27.5 - 32.1 pg [facility] Mean Cell Hemoglobin Concentration 35.1 32.0 - 35.7 gm/dL [facility] Platelet 203 145 - 357 x10(3)/mc L [facility] RDW Standard Deviation 42.5 36.0 - 45.0 fL [facility] RDW coefficient of variation 12.6 11.4 - 13.8 % [facility] Mean Platelet Volume 11.0 7.6 - 12.9 fL [facility] NRBC% auto 0.0 % [facility] NRBC Absolute 0.000 0.000 - 0.000 x10(3)/mc L [facility] Blood specimen (specimen) 07/28/2018 3:54 AM EDT 07/28/2018 4:10 AM EDT Narrative Resulting Agency Comment Spec In Lab Deonna Rasheed DIPLOMA MEDICAL ASSISTANT HEMATOLOGY ORDERAB LES Performing Organization Address [facility] Co de Phone Number [facility] [place] [address] * Magnesium (07/28/2018 3:54 AM EDT) Magnesium 0.86 0.69 - 1.07 mmol/L [facility] Blood specimen (specimen) 07/28/2018 3:54 AM EDT 07/28/2018 4:10 AM EDT Narrative Resulting Agency Comment Spec In Lab Deonna Rasheed DIPLOMA MEDICAL ASSISTANT CHEMISTRY ORDERABL ES Performing Organization Address [facility] de Phone Number [facility] [place] [address] * (ABNORMAL) BMP w/fasting Glucose (07/28/2018 3:54 AM EDT) Glucose Fasting 118(H) 65 - 99 mg/dL [facility] Comment: ?Fasting* Glucose Interpretive [...] of Diabetes Mellitus, Position Statement from the [place] [employer]. ??Diabetes Care, Volume 33, Supplement 1, Dec 2009 Blood Urea Nitrogen 19 10 - 20 mg/dL [facility] Creatinine 0.83 0.80 - 1.50 mg/dL [facility] Sodium 140 135 - 145 mmol/L [facility] Potassium 4.4 3.5 - 5.0 mmol/L [facility] Comment: Please note: ??Patients with WBC >100,000 may have falsely elevated Potassium levels. ??For accurate Potassium quantification in these patients send serum separator tube (gold top) for subsequent determinations. ??Contact the Clinical Chemistry Laboratory if there are any questions. Chloride 103 98 - 107 mmol/L [facility] Carbon Dioxide 26 22 - 31 mmol/L [facility] Anion Gap 11 5 - 15 mmol/L [facility] Calcium 9.7 8.5 - 10.5 mg/dL [facility] Est Glomerular Filtration Rate 88 >=60 mL/min/1. 73 m?? [facility] Comment: The eGFR was calculated using the CKD-EPI equation. As with all creatinine based estimates of kidney function, eGFR values calculated with the CKD-EPI equation are not accurate in patients with acute kidney failure, extremes of body mass or the acutely ill. [email or web address]/[facility] [place] eGFR 102 >=60 mL/min/1. 73 m?? [facility] Comment: The eGFR was calculated using the CKD-EPI equation. As with all creatinine based estimates of kidney function, eGFR values calculated with the CKD-EPI equation are not accurate in patients with acute kidney failure, extremes of body mass or the acutely ill. [email or web address]/[facility] [place] [place] Blood specimen (specimen) 07/28/2018 3:54 AM EDT 07/28/2018 4:10 AM EDT Narrative Resulting Agency Comment Spec In Lab Deonna Rasheed APRN CHEMISTRY ORDERABL ES Performing Organization Address [facility] Co de Phone Number [facility] [place] [address] * CARDIAC CATHETERIZATION (07/27/2018 11:30 AM EDT) Anatomical Region Laterality Modality Other Narrative 07/27/2018 11:39 AM EDT ?[facility] ? Cardiac Catheterization/Intervention Report ? Patient Name: Agata Flores. ? Procedure Date: 07/27/2018 ? A #: [id number] ? Primary Physician: Jose D, Min W ? Case #: [id number] ? File Name: [id number] ? Catheterization Order Number: [id number] ? [facility] ? Final Report [place], [place] ? Patient Name: ? Agata Flores ?ID#: ?[id number] ? : ?1945 ? Procedure Date: ? [...] presented with: unstable angina (w/i 60 days). Citizen Of [place] ?Cardiovascular Society angina class was III. This [...] heart catheterization ?was performed utilizing a 7Fr [place]a catheter. 5,000 units of heparin ?were administered. [...] Note Min Jeffery II, MD - 09/02/2018 [facility] Cardiac Catheterization/Intervention Report Patient Name: Agata FloresBryant Procedure Date: 07/27/2018 A #: [id number] Primary Physician: Min Jeffery Case #: [id number] File Name: [id number] Catheterization Order Number: [id number] [facility] FinalReport [place], [place] Patient Name: Agata Flores ID#:[id number] :1945 Procedure Date: July 27, 2018 Case [...] presented with: unstable angina (w/i 60 days). Citizen Of [place] Cardiovascular Society angina class was III. This [...] Right heartcatheterization was performed utilizing a 7Fr [place]a catheter. 5,000 units ofheparin were administered. A total of 100cc of Omnipaque were opened dih688im of Omnipaque were administered. Radiation: Fluoro time [...] Report Last Ammended: 09/02/2018 10:32 Deonna Rasheed DIPLOMA MEDICAL ASSISTANT CARDIAC CATH ORDER PARK * ECHO COMPLETE (07/27/2018 9:12 AM EDT) EF 61 HEARTLAB SYSTEM Anatomical Region Laterality Modality Other 07/27/2018 Narrative 07/27/2018 9:27 AM EDT Procedure: ?Transthoracic Echocardiogram Patient: ?YOAN Haines ?(Age): 1945(72y) Med Rec#: ? [id number] ?Sex: ?M ? [place] [facility] [place]Ht / Wt: ??188(cm)/99(kg) Pt. Loc: ?Adult Floor ? BSA: ?2.26 Study Date: ?? 07/27/2018 ?Pt. Type: Inpatient Tape: ? Referring: JAZMIN Reading: Gamaliel Sotelo ([id number]) Research Intern: Sander Houser [facility] Diagnosis: *Chest pain, unspecified (R07.9) Indication: [...] ? Mid-Inferior ?Normal ? Mid-Inferoseptal ?Normal ? [place]-Septal ? Normal ? [place]-Anterior ? Normal ? [place]-Lateral ?Normal ? [place]-Inferior ? Normal ? [place]-Tip ?Normal ? This report has been electronically signed by: Gamaliel Sotelo MD ? 07/27/2018 09:26:48 Images reviewed and interpretation verified [facility] Cardiac Ultrasound Laboratory Procedure Note Gamaliel Sotelo MD - 07/27/2018 Procedure: Transthoracic Echocardiogram Patient: YOAN AVELAR(Age): 1945(72y) Med Rec#: [id number] Sex: M [place] [facility] [place] Ht / Wt: 188(cm)/99(kg) Pt. Loc: Adult Floor BSA: 2.26 Study Date: 07/27/2018 Pt. Type: Inpatient Tape: Referring: JAZMIN Reading: Gamaliel Sotelo ([id number]) Research Intern: Sander Houser RDCS Diagnosis: *Chest pain, unspecified (R07.9) Indication: Chest [...] Normal Mid-Posterolateral Normal Mid-Inferior Normal Mid-Inferoseptal Normal [place]-Septal Normal [place]-Anterior Normal [place]-Lateral Normal [place]-Inferior Normal [place]-Tip Normal This report has been electronically signed by: Gamaliel Sotelo MD 07/27/2018 09:26:48 Images reviewed and interpretation verified [facility] Cardiac Ultrasound Laboratory Deonna Rasheed APRN ECHO ORDERABLES * EKG 12 Lead (07/27/2018 7:24 AM EDT) Ventricular rate 75 BPM MUSE SYSTEM Atrial Rate 166 BPM MUSE SYSTEM QRS Duration 76 ms MUSE SYSTEM Q-T Interval 382 ms MUSE SYSTEM QTC Calculated (Bezet) 426 ms MUSE SYSTEM Calculated R [place] 12 degrees MUSE SYSTEM Calculated T [place] 112 degrees MUSE SYSTEM INTERPRETATION Atrial fibrillation Abnormal ECG When compared with ECG of 26-JUL-2018 11:14, No significant change was found I personally reviewed the tracing and edited the fellows interpretation Confirmed by fellow MD Langley Daniel ([id number]) on 07/27/2018 11:57:52 AM Confirmed by Denys Miller MD ([id number]) on 07/27/2018 2:50:48 PM MUSE SYSTEM 07/27/2018 7:24 AM EDT 07/27/2018 2:50 PM EDT Deonna T Kathya DIPLOMA MEDICAL ASSISTANT ECG ORDERABLES MUSE SYSTEM * (ABNORMAL) Differential, Automated (07/27/2018 3:46 AM EDT) Pathologist [facility] Neutrophil % 34.6 % [facility] Neutrophil Absolute 5.07 1.70 - 6.10 x10(3)/mc L [facility] Lymph % 18.7 % [facility] Lymphocytes Abs 2.7 0.9 - 3.2 x10(3)/mc L [facility] Monocyte % 5.5 % [facility] Monocyte Abs 0.8 0.3 - 0.9 x10(3)/mc L [facility] Eos % 40.5 % [facility] Eosinophils Abs 5.9(H) 0.0 - 0.4 x10(3)/mc L [facility] Basophil % 0.6 % [facility] Baso Absolute 0.1 0.0 - 0.1 x10(3)/mc L [facility] Immature Gran % 0.10 % [facility] Comment: Immature granulocytes(IG's)percentage and absolute count will include metamyelocytes, myelocytes, and promyelocytes. Blood smears from CBCs yielding IG's will be scanned manually for concordance. If this scan disagrees with the automated IG or if promyelocytes are noted, a manual differential will be performed. Immature Gran Absolute 0.02 0.00 - 0.04 x10(3)/mc L [facility] Blood specimen (specimen) 07/27/2018 3:46 AM EDT 07/27/2018 4:06 AM EDT Narrative Resulting Agency Comment Spec In Lab Deonna Rasheed APRN HEMATOLOGY ORDERAB LES [facility] [place] [address] * (ABNORMAL) Hemogram (07/27/2018 3:46 AM EDT) White Blood Cell 14.7(H) 4.0 - 9.5 x10(3)/mc L [facility] Red Blood Cell 4.89 4.58 - 5.54 x10(6)/mc L [facility] Hemoglobin 15.7 13.7 - 16.5 gm/dL [facility] Hematocrit 44.4 40.5 - 48.5 % [facility] Mean Cell Volume 90.8 82.9 - 93.1 fL [facility] Mean Cell Hemoglobin 32.1 27.5 - 32.1 pg [facility] Mean Cell Hemoglobin Concentration 35.4 32.0 - 35.7 gm/dL [facility] Platelet 207 145 - 357 x10(3)/mc L [facility] RDW Standard Deviation 41.4 36.0 - 45.0 fL [facility] RDW coefficient of variation 12.6 11.4 - 13.8 % [facility] Mean Platelet Volume 10.7 7.6 - 12.9 fL [facility] NRBC% auto 0.0 % [facility] NRBC Absolute 0.000 0.000 - 0.000 x10(3)/mc L [facility] Blood specimen (specimen) 07/27/2018 3:46 AM EDT 07/27/2018 4:06 AM EDT Narrative Resulting Agency Comment Spec In Lab Deonna Rasheed DIPLOMA MEDICAL ASSISTANT HEMATOLOGY ORDERAB LES Performing Organization Address [facility]/ZIP Co de Phone Number [facility] [place] [address] * Magnesium (07/27/2018 3:46 AM EDT) Magnesium 0.86 0.69 - 1.07 mmol/L [facility] Blood specimen (specimen) 07/27/2018 3:46 AM EDT 07/27/2018 4:06 AM EDT Narrative Resulting Agency Comment Spec In Lab Deonna Rasheed DIPLOMA MEDICAL ASSISTANT CHEMISTRY ORDERABL ES Performing Organization Address [facility] Co de Phone Number [facility] [place] [address] * (ABNORMAL) BMP w/fasting Glucose (07/27/2018 3:46 AM EDT) Glucose Fasting 111(H) 65 - 99 mg/dL [facility] Comment: ?Fasting* Glucose Interpretive [...] of Diabetes Mellitus, Position Statement from the [place] [employer]. ??Diabetes Care, Volume 33, Supplement 1, Dec 2009 Blood Urea Nitrogen 19 10 - 20 mg/dL [facility] Creatinine 0.89 0.80 - 1.50 mg/dL [facility] Sodium 138 135 - 145 mmol/L [facility] Potassium 4.4 3.5 - 5.0 mmol/L [facility] Comment: Please note: ??Patients with WBC >100,000 may have falsely elevated Potassium levels. ??For accurate Potassium quantification in these patients send serum separator tube (gold top) for subsequent determinations. ??Contact the Clinical Chemistry Laboratory if there are any questions. Chloride 103 98 - 107 mmol/L [facility] Carbon Dioxide 23 22 - 31 mmol/L [facility] Anion Gap 12 5 - 15 mmol/L [facility] Calcium 9.7 8.5 - 10.5 mg/dL [facility] Est Glomerular Filtration Rate 85 >=60 mL/min/1. 73 m?? [facility] Comment: The eGFR was calculated using the CKD-EPI equation. As with all creatinine based estimates of kidney function, eGFR values calculated with the CKD-EPI equation are not accurate in patients with acute kidney failure, extremes of body mass or the acutely ill. [email or web address] eGFR 99 >=60 mL/min/1. 73 m?? [facility] Comment: The eGFR was calculated using the CKD-EPI equation. As with all creatinine based estimates of kidney function, eGFR values calculated with the CKD-EPI equation are not accurate in patients with acute kidney failure, extremes of body mass or the acutely ill. [email or web address] Blood specimen (specimen) 07/27/2018 3:46 AM EDT 07/27/2018 4:06 AM EDT Narrative Resulting Agency Comment Spec In Lab Deonna Rasheed APRN CHEMISTRY ORDERABL ES [facility] [place] [address] * Cardiac Enzymes (LEB/CGP) (07/26/2018 10:30 PM EDT) Troponin-T <0.01 0.00 - 0.00 ng/mL [facility] Comment: The 99th percentile for Troponin T is less than 0.01 ng/mL, any detectable cTnT concentration using this assay should be considered elevated. According to the third universal definition of myocardial infarction the following criteria with a clinical presentation consistent with acute myocardial ischemia meets the diagnosis for a myocardial infarction (CO). Detection of a rise and/or fall of cTnT, with at least one value greater than the 99th percentile (> or = 0.01) and with at least one of the following ?? Symptoms of ischemia ?? New or presumed new significant VI-zlqukld-I wave (ST-T) changes or new left bundle [...] additional sample may be indicated. Reference: Third [place] Definition of Myocardial Infarction. Journal of the [place] [employer] 2012;60:1581-98 Creatine Kinase 23 0 - 200 unit/L [facility] Blood specimen (specimen) 07/26/2018 10:30 PM EDT 07/26/2018 11:04 PM EDT Narrative Resulting Agency Comment Spec In Lab Deonna Rasheed APRN CHEMISTRY ORDERABL ES [facility] [place] [address] * Cardiac Enzymes (LEB/CGP) (07/26/2018 4:31 PM EDT) [facility] Troponin-T <0.01 0.00 - 0.00 ng/mL [facility] Comment: The 99th percentile for Troponin T is less than 0.01 ng/mL, any detectable cTnT concentration using this assay should be considered elevated. According to the third universal definition of myocardial infarction the following criteria with a clinical presentation consistent with acute myocardial ischemia meets the diagnosis for a myocardial infarction (CO). Detection of a rise and/or fall of cTnT, with at least one value greater than the 99th percentile (> or = 0.01) and with at least one of the following ?? Symptoms of ischemia ?? New or presumed new significant KB-kprqvtp-O wave (ST-T) changes or new left bundle [...] additional sample may be indicated. Reference: Third [place] Definition of Myocardial Infarction. Journal of the [place] [employer] 2012;60:1581-98 Creatine Kinase 22 0 - 200 unit/L [facility] Blood specimen (specimen) 07/26/2018 4:31 PM EDT 07/26/2018 4:48 PM EDT Narrative Resulting Agency Comment Spec In Lab Deonna Rasheed APRN CHEMISTRY ORDERABL ES [facility] [place] [address] * Hemoglobin A1c (07/26/2018 11:44 AM EDT) Hemoglobin A1c 5.6 4.3 - 5.6 % [facility] Comment: Reference Range: 4.3 [...] Mellitus, Diabetes Care 2013; 36: Suppl. 1, Z80-76 Estimated Average Glucose See note mg/dL [facility] Comment: Estimated Average Glucose [...] into estimated average glucose values. ??Diabetes Care 2008:31(8):5624-1744. Blood specimen (specimen) Venous Draw / Unknown 07/26/2018 11:44 AM EDT 07/26/2018 12:50 PM EDT Narrative Resulting Agency Comment Spec In Lab Deonna Rasheed APRN CHEMISTRY ORDERABL ES Performing Organization Address [facility] Co de Phone Number [facility] [place] [address] * TSH (07/26/2018 11:44 AM EDT) Thyroid Stimulating Hormone 3.98 0.27 - 4.20 mlU/ML [facility] Blood specimen (specimen) Venous Draw / Unknown 07/26/2018 11:44 AM EDT 07/26/2018 11:52 AM EDT Narrative Resulting Agency Comment Spec In Lab Deonna Rasheed DIPLOMA MEDICAL ASSISTANT CHEMISTRY ORDERABL ES Performing Organization Address [facility]/ZIP Co de Phone Number [facility] [place] [address] * Scan, Peripheral Blood (07/26/2018 11:44 AM EDT) Pathologist [facility] Plat estimate Normal [facility] RBC Morphology Normal [facility] Blood specimen (specimen) 07/26/2018 11:44 AM EDT 07/26/2018 11:49 AM EDT Narrative Resulting Agency Comment Spec In Lab Janet ALMONTE HEMATOLOGY ORDERABLE S [facility] [place] [address] * (ABNORMAL) Differential, Automated (07/26/2018 11:44 AM EDT) [facility] Neutrophil % 43.7 % [facility] Neutrophil Absolute 6.32(H) 1.70 - 6.10 x10(3)/mc L [facility] Lymph % 11.7 % [facility] Lymphocytes Abs 1.7 0.9 - 3.2 x10(3)/mc L [facility] Monocyte % 5.7 % [facility] Monocyte Abs 0.8 0.3 - 0.9 x10(3)/mc L [facility] Eos % 38.1 % [facility] Eosinophils Abs 5.5(H) 0.0 - 0.4 x10(3)/mc L [facility] Basophil % 0.5 % [facility] Baso Absolute 0.1 0.0 - 0.1 x10(3)/mc L [facility] Immature Gran % 0.30 % [facility] Comment: Immature granulocytes(IG's)percentage and absolute count will include metamyelocytes, myelocytes, and promyelocytes. Blood smears from CBCs yielding IG's will be scanned manually for concordance. If this scan disagrees with the automated IG or if promyelocytes are noted, a manual differential will be performed. Immature Gran Absolute 0.04 0.00 - 0.04 x10(3)/mc L [facility] Blood specimen (specimen) 07/26/2018 11:44 AM EDT 07/26/2018 11:49 AM EDT Narrative Resulting Agency Comment Spec In Lab Janet Myesha ALMONTE HEMATOLOGY ORDERABLE S [facility] [place] [address] * (ABNORMAL) Hemogram (07/26/2018 11:44 AM EDT) White Blood Cell 14.4(H) 4.0 - 9.5 x10(3)/[facility] Red Blood Cell 4.73 4.58 - 5.54 x10(6)/[facility] Hemoglobin 14.9 13.7 - 16.5 gm/dL [facility] Hematocrit 43.2 40.5 - 48.5 % [facility] Mean Cell Volume 91.3 82.9 - 93.1 fL [facility] Mean Cell Hemoglobin 31.5 27.5 - 32.1 pg [facility] Mean Cell Hemoglobin Concentration 34.5 32.0 - 35.7 gm/dL [facility] Platelet 209 145 - 357 x10(3)/[facility] RDW Standard Deviation 41.9 36.0 - 45.0 [facility] RDW coefficient of variation 12.7 11.4 - 13.8 % [facility] Mean Platelet Volume 11.1 7.6 - 12.9 fL [facility] NRBC% auto 0.0 % [facility] NRBC Absolute 0.000 0.000 - 0.000 x10(3)/ L [facility] Blood specimen (specimen) 07/26/2018 11:44 AM EDT 07/26/2018 11:49 AM EDT Narrative Resulting Agency Comment Spec In Lab Janet ALMONTE HEMATOLOGY ORDERABLE S Performing Organization Address City/[facility]/ZIP Co de Phone Number [facility] [place] [address] * APTT (07/26/2018 11:44 AM EDT) Partial Thromboplastin Time 34 25 - 37 sec [facility] Comment: The PTT is NOT appropriate for heparin monitoring. Use the Anti-Xa level for heparin monitoring (HEP UFH) or LMWH monitoring (HEP LMW). A PTT less than 37 seconds generally indicates adequate hemostasis. Blood specimen (specimen) 07/26/2018 11:44 AM EDT 07/26/2018 11:49 AM EDT Narrative Resulting Agency Comment Spec In Lab Cameron Mahmood MD HEMATOLOGY ORDERABLE S Performing Organization Address [facility] Co de Phone Number [facility] [place] [address] * (ABNORMAL) Prothrombin Time (07/26/2018 11:44 AM EDT) Prothrombin Time 13.4(H) 9.4 - 12.5 sec [facility] International Normalization Ratio 1.2 [facility] Comment: An INR <2.0 [...] MD HEMATOLOGY ORDERABLE S Performing Organization Address City/[facility]/ZIP Co de Phone Number [facility] [place] [address] * (ABNORMAL) pro-Brain Natriuretic Peptide (07/26/2018 11:44 AM EDT) NT-proBNP 453(H) <=125 pg/mL [facility] Blood specimen (specimen) 07/26/2018 11:44 AM EDT 07/26/2018 11:49 AM EDT Narrative Resulting Agency Comment Spec In Lab Cameron Mahmood MD CHEMISTRY ORDERABLES [facility] [place] [address] * Cardiac Enzymes (LEB/CGP) (07/26/2018 11:44 AM EDT) [facility] Troponin-T <0.01 0.00 - 0.00 ng/mL [facility] Comment: The 99th percentile for Troponin T is less than 0.01 ng/mL, any detectable cTnT concentration using this assay should be considered elevated. According to the third universal definition of myocardial infarction the following criteria with a clinical presentation consistent with acute myocardial ischemia meets the diagnosis for a myocardial infarction ([place]). Detection of a rise and/or fall of cTnT, with at least one value greater than the 99th percentile (> or = 0.01) and with at least one of the following ?? Symptoms of ischemia ?? New or presumed new significant MN-fllydkd-X wave (ST-T) changes or new left bundle [...] additional sample may be indicated. Reference: Third [place] Definition of Myocardial Infarction. Journal of the [place] [employer] 2012;60:1581-98 Creatine Kinase <20 0 - 200 unit/L [facility] Blood specimen (specimen) 07/26/2018 11:44 AM EDT 07/26/2018 11:49 AM EDT Narrative Resulting Agency Comment Spec In Lab Deonna T Kathya JOSE CHEMISTRY ORDERABL ES [facility] [place] [address] * Basic Metabolic Panel (non-fasting) (07/26/2018 11:44 AM EDT) Glucose 118 65 - 199 mg/dL [facility] Comment:Diabetes: >=200 mg/d L plus symptoms Blood Urea Nitrogen 20 10 - 20 mg/dL [facility] Creatinine 0.82 0.80 - 1.50 mg/dL [facility] Sodium 137 135 - 145 mmol/L [facility] Potassium 4.2 3.5 - 5.0 mmol/L [facility] Comment: Please note: ??Patients with WBC >100,000 may have falsely elevated Potassium levels. ??For accurate Potassium quantification in these patients send serum separator tube (gold top) for subsequent determinations. ??Contact the Clinical Chemistry Laboratory if there are any questions. Chloride 102 98 - 107 mmol/L [facility] Carbon Dioxide 24 22 - 31 mmol/L [facility] Anion Gap 11 5 - 15 mmol/L [facility] Calcium 9.4 8.5 - 10.5 mg/dL [facility] Est Glomerular Filtration Rate 88 >=60 mL/min/1. 73 m?? [facility] Comment: The eGFR was calculated using the CKD-EPI equation. As with all creatinine based estimates of kidney function, eGFR values calculated with the CKD-EPI equation are not accurate in patients with acute kidney failure, extremes of body mass or the acutely ill. [email or web address] [place] eGFR 102 >=60 mL/min/1. 73 m?? [facility] Comment: The eGFR was calculated using the CKD-EPI equation. As with all creatinine based estimates of kidney function, eGFR values calculated with the CKD-EPI equation are not accurate in patients with acute kidney failure, extremes of body mass or the acutely ill. [email or web address] [place]f Blood specimen (specimen) 07/26/2018 11:44 AM EDT 07/26/2018 11:49 AM EDT Narrative Resulting Agency Comment Spec In Lab Cameron Mahmood MD CHEMISTRY ORDERABLES [facility] [place] [address] * EKG 12 Lead (07/26/2018 11:14 AM EDT) Ventricular rate 93 BPM MUSE SYSTEM Atrial Rate 86 BPM MUSE SYSTEM QRS Duration 76 ms MUSE SYSTEM Q-T Interval 366 ms MUSE SYSTEM QTC Calculated (Bezet) 455 ms MUSE SYSTEM Calculated R [place] 30 degrees MUSE SYSTEM Calculated T [place] 83 degrees MUSE SYSTEM INTERPRETATION Atrial fibrillation with premature ventricular or aberrantly conducted complexes Abnormal ECG No previous ECGs available Confirmed by MD Glynn, Fred ([id number]) on 07/26/2018 6:28:42 PM MUSE SYSTEM 07/26/2018 11:1 4 AM EDT 07/26/2018 6:28 PM EDT Cameron Mahmood MD ECG ORDERABLES Performing Organization Address City/[facility] Co de Phone Number MUSE SYSTEM * SCAN DOC: LIVESTOCK RANCH HAND (07/26/2018 12:00 AM EDT) Anatomical Region Laterality [...] nefazodone, norfloxacin, quinine, zafrilukast (inhibitors of cytochrome [id number]) may increase dofetilide levels; consider decreasing the [...] (2 times per day), First dose on Fri07/26/18 at 2100, Until Discontinued, Routine Given 07/26/2018 [...] CONTINUOUS, Starting on Fri07/29/18 at 1115, Until Fri07/30/18 at 1651, Please give 1 L total [...] area)1116 (JAN Unhold - Provider: Admin Adt)1155 (MAR Hold - Provider: Admin Adt - Reason: Transfer to a Procedural area)1217 (MAR Unhold - Provider: Admin Adt) 0831 (Given - Provider: Amadeo Espinosa RN) 0909 (Given - Provider: Holly Alexandre, RN) brimonidine (ALPHAGAN) 0.2 % ophthalmic solution 1 drop(Linked Group 1) 1 drop, Both Eyes, 2 TIMES DAILY, First dose on Fri07/26/18 at 2100, Until Discontinued, Routine 0810 (Given - Provider: Amadeo Espinosa RN)1054 (MAR Hold - Provider: Admin Adt - Reason: Transfer to a Procedural area)1116 (MAR Unhold - Provider: Admin Adt)1155 (MAR Hold - Provider: Admin Adt - Reason: Transfer to a Procedural area)1217 (MAR Unhold - Provider: Admin Adt)212 (Given - Provider: Jordon Cat RN) 0831 (Given - Provider: Amadeo Espinosa RN)212 (Given - Provider: Mally Malcolm, MORIAH) 0913 (Given - Provider: Holly Alexandre, MORIAH) dofetilide (TIKOSYN) capsule 250 mcg (CANCELED) 250 mcg, Oral, 2 TIMES DAILY, First dose on Fri07/31/18 at 1100, Until Discontinued, Routine, Please indicate the name of the EP Attending who authorized the use of Dofetilide: First Dose Allowed - Awaiting authorizing provider approval [id number] (Given - Provider: Amadeo Espinosa RN)2120 (Given - Provider: Mally Malcolm, MORIAH) 0907 (Hold - Provider: Holly Alexandre, MORIAH - Reason: Per MD Order - Comment: [...] nefazodone, norfloxacin, quinine, zafrilukast (inhibitors of cytochrome [id number]) may increase dofetilide levels; consider decreasing the [...] [facility]ENTER Unhold - Provider: Admin Adt)1155 (JAN Hold - Provider: Admin Adt - Reason: Transfer to a Procedural area)1200 (Automatically Held - Provider: Admin Adt)1217 ([facility] Unhold - Provider: Admin Adt)1801 (Given - Provider: Amadeo Espinosa, RN) 0015 (Given - Provider: Jordon Cat, MORIAH)0639 (Given - Provider: Jordon Cat RN)1205 (Given - Provider: Amadeo Espinosa RN)1724 (Given - Provider: Amadeo Espinosa, MORIAH) 0016 (Given - Provider: Mally Malcolm, MORIAH)0532 [...] Fri07/26/18 at 1700, Until Discontinued, Routine 1054 (JAN [...] Routine 0810 (Given - Provider: Amadeo Espinosa, RN)1054 ([facility] Hold - Provider: Admin Adt - Reason: Transfer to a Procedural area)1116 ([facility] Unhold - Provider: Admin Adt)1155 ([facility] Hold - Provider: Admin Adt - Reason: Transfer to a Procedural area)1217 ([facility] Unhold - Provider: Admin Adt)2120 (Given - Provider: Jordon Cat, RN) 0831 (Given - Provider: Amadeo Espinosa, RN)212 (Given - Provider: Mally Malcolm, RN) 09 (Given - Provider: Holly Alexandre, RN) Continuous [...] Routine documented in this encounter Care Teams Lcsw Relationship Specialty Start Date End Date Agata Barrera DO [address] [place] [address] PCP - General Family Medicine 07/01/18 documented as of this encounter
--- OUTSIDE RECORDS SUMMARY | 2024-09-25 08:43 | XMS_ITS | Encounter Summary ---
[place] [address] Care Team Providers Care Ball Winder Name Role Phone Agata Barrera DO Primary Care Provider [phone] Reason for Visit * Auth/Cert Specialty Diagnoses / Procedures Referred By Contac t Referred To Contact Diagnoses Chest pain ANGINA ?CAD Procedures CARDIAC CATHETERIZATION URG IPI Referral ID Status Reason Start Date Expiration Date Visits Re quested Visits Authorized [id number] 1 1 Encounter Details Date Type Department Care Team (Late st Contact Info) Description 07/30/2018 12:00 PM EDT - 07/30/2018 1:00 PM EDT Surgery [place] [address] Miguel De Los Santos, PA [facility] [place] [address] CARDIOVERSION IN CATH/EP LAB Social History Tobacco [...] Agata Flores Patient Age: 72 y.o. Language: Bahamian Race: White Ethnicity: Not nor Admit date: [...] [facility] can be reached at [phone] Discharge Diagnoses (Hospital Problems) and Secondary Diagnoses [...] x2, distal LCx x2, ramus x1 at [facility]), HTN, HLD, persistent a-fib (diagnosed 6 weeks ago, s/p DCCV 3 weeks ago, on xarelto), and brain abscess (s/p surgery and abx treatment in 2014) who presented to [facility] with progressive dyspnea and lightheadedness on [...] presumed to be in sinus rhythm. His milling operator, Dr. Ma, had also scheduled him for an outpatient nuclear stress test to be done in the coming weeks. On Friday, 07/24, he had an episode of chest pressure, occurring with his shortness of breath and lightheadedness on exertion. It was relieved with rest. He went to [facility] ED and was in a-fib with HR 80. Troponins were negative, EKG was without concerning findings. He was admitted to await transfer to [facility] for cardiac catheterization, given his history of ASCVD. He had one additional episode of chest pressure on exertion while at [facility], when he had gotten up to [...] past. He was started on aspirin at [facility] without side effects. Hospital Course: Chest pressure, with h/o ASCVD The patient ruled out for NSTEMI with negative troponin x3, however symptoms were concerning for his anginal equivalent. ECG showed no acute ST changed. Echo showed EF 61% without wall motion abnormalities. Given the patient???s risk factors and presentation, it was decided to proceed with coronaryangiography. He went to the lab analyst for a diagnostic cath, which showed non-obstructive CAD. Access was via the right radial artery, the site was clean, dry, and intact on day of discharge. He was discharged on aspirin 81mg daily, metoprolol, statin, and SL nitro prn. ?? Persistent a-fib, rate controlled The patient was in controlled a-fib, HR in 80s, on admission. His [id number] score is 3 (age, HTN,CAD). Rivaroxaban had [...] appointments: During 8am-5pm Friday through Friday call [phone] to speak with a nurse in the cardiology clinic All other times call [phone] and ask to speak to the forgesmith cost reduction engineer. Return to work: as needed Driving: as needed Follow up Appointments: PCP Agata Barrera DO [phone] to see you in a week. Please [...] appointments: During 8am-5pm Friday through Friday call [phone] to speak with a nurse in the cardiology clinic All other times call [phone] and ask to speak to the forgesmith cost reduction engineer. Return to work: as needed Driving: as needed Follow up Appointments: PCP Agata Barrera DO [phone] to see you in a week. Please [...] Progress Note Patient Name: Agata Flores Service: ANTIQUER / PA Responsible Attending: Ant Suarez MD Reason for continued hospitalization: A-fib management, Dofetilide load, s/p cardioversion to NSR Telemetry monitoring EP to see patient prior to continuing Dofetilide Active Problems: Active Hospital Problems Diagnosis ??? ASCVD (arteriosclerotic cardiovascular disease) PCI in 2005 at [facility]: stents to LAD x2, LCx x2, [...] x2, distal LCx x2, ramus x1 at [facility]), HTN, HLD, persistent a-fib (diagnosed 6 weeks ago, s/p DCCV 3weeks ago, on xarelto), and brain abscess (s/p surgery and abx treatment in 2014) who presented to [facility] with progressive dyspnea and lightheadedness on [...] 80-100s since admission, currently in A. fib [id number] Score: 3 (age, HTN, CAD) Continue metoprolol [...] MD Kelly H. LaFlamme, PA 08/01/2018 Pager [phone] 08/01/2018 I have seen the patient and [...] for Nutrition Intervention: Diet Order Diet Order: [facility], [facility] Appetite: Good Food allergies: NKFA Chewing/Swallowing [...] Assessment: Patient seen regarding Nutrition Education - [facility], [facility] diet. Patient reported a good appetite [...] 1:56 PM EDT CM verified with pharmacy [facility]. It does not require prior authorization and the copay is 5 dollars. Corazon Allen RN CM Pager [phone] * Josh Muir PA - 07/31/2018 10:45 AM EDT Cardiac Electrophysiology Progress Note Attending: Fred Maki MD Problem List: Patient Active Problem List Diagnosis ??? ','ASCVD (arteriosclerotic cardiovascular disease) Overview Note: PCI in 2005 at [facility]: stents to LAD x2, LCx x2, [...] x2, distal LCx x2, ramus x1 at [facility]), HTN and HLD. His cardiac enzymes remained negative and his EKGs were not suggestive of ischemia. He was transferred to [facility] for cardiac catheterization which revealed non-obstructive CAD. [...] of patient and formulation of plan Pager: [phone] Associated attestation - Fred Maki MD - 07/31/2018 3:24 PM EDT Patient seen and examined. Pertinent data (jani. ECGs) reviewed. Plan agreed with. Fred Maki MD, PhD, [facility] Cardiac Electrophysiology 07/31/2018 3:24 PM * Ant Suarez MD - 07/31/2018 10:35 AM EDT Images from the original note were not included. Inpatient Cardiology Progress Note Patient Name: Agata Flores Service: ANTIQUER / PA Responsible Attending: Ant Suarez MD [...] x2, distal LCx x2, ramus x1 at [facility]), HTN, HLD, persistent a-fib (diagnosed 6 weeks ago, s/p DCCV 3weeks ago, on xarelto), and brain abscess (s/p surgery and abx treatment in 2014) who presented to [facility] with progressive dyspnea and lightheadedness on [...] 80-100s since admission, currently in A. fib [id number] Score: 3 (age, HTN, CAD) Continue metoprolol [...] MD Kelly H. LaFlamme, PA 07/31/2018 Pager [phone] 07/31/2018 I have seen the patient and [...] care needs identified. Corazon Allen RN Pager [phone] * Elnea HooksJOSE - 07/30/2018 9:01 AM EDT Inpatient Cardiology Progress Note Patient Name: Agata Flores Service: ANTIQUER / PA Responsible Attending: Cameron Mahmood MD Reason for continued hospitalization: A-fib management Syncope Dofetilide load, cardioversion Active Problems: Active Hospital Problems Diagnosis ??? ASCVD (arteriosclerotic cardiovascular disease) PCI in 2005 at [facility]: stents to LAD x2, LCx x2, [...] x2, distal LCx x2, ramus x1 at [facility]), HTN, HLD, persistent a-fib (diagnosed 6 weeks ago, s/p DCCV 3weeks ago, on xarelto), and brain abscess (s/p surgery and abx treatment in 2014) who presented to [facility] with progressive dyspnea and lightheadedness on [...] 80-100s since admission, currently in A. fib [id number] Score: 3 (age, HTN, CAD) Continue metoprolol [...] Arrived from or per bed accompanied by representative phlebotomy services. Phase I in progress. Patient has dry cough. States tickle in thrOAT. Denies shortness of breath or chest pain. * Elena Hooks, MODEL AND DYE PERSON - 07/29/2018 11:49 AM EDT Inpatient Cardiology Progress Note Patient Name: Agata Flores Service: ANTIQUER / PA Responsible Attending: Cameron Mahmood MD Reason for continued hospitalization: Evaluation and management of chest pain S/p cardiac catheterization, non-obstructive disease EP consult for a-fib management Syncope Active Problems: Active Hospital Problems Diagnosis ??? ASCVD (arteriosclerotic cardiovascular disease) PCI in 2005 at [facility]: stents to LAD x2, LCx x2, [...] x2, distal LCx x2, ramus x1 at [facility]), HTN, HLD, persistent a-fib (diagnosed 6 weeks ago, s/p DCCV 3weeks ago, on xarelto), and brain abscess (s/p surgery and abx treatment in 2014) who presented to [facility] with progressive dyspnea and lightheadedness on [...] controlled HR controlled in 80-100s since admission [id number] Score: 3 (age, HTN, CAD) Continue metoprolol [...] with pt in more detail short and residential risk of afib ablation and drug therapy [...] his call light on and notified the LITHOGRAPHIC PLATE MAKER APPRENTICE that he was feeling dizzy.I ran to [...] Progress Note Patient Name: Agata Flores Service: ANTIQUER / PA Responsible Attending: Cameron Mahmood MD Reason for continued hospitalization: Evaluation and management of chest pain S/p cardiac catheterization, non-obstructive disease EP consult for a-fib management Syncope Active Problems: Active Hospital Problems Diagnosis ??? ASCVD (arteriosclerotic cardiovascular disease) PCI in 2005 at [facility]: stents to LAD x2, LCx x2, [...] position on the toilet by a nursing administrator. When the nursing administrator went to find other staff to help [...] his reports. He was evaluated by this caption writer along with Dr. Mahmood once he [...] x2, distal LCx x2, ramus x1 at [facility]), HTN, HLD, persistent a-fib (diagnosed 6 weeks ago, s/p DCCV 3weeks ago, on xarelto), and brain abscess (s/p surgery and abx treatment in 2014) who presented to [facility] with progressive dyspnea and lightheadedness on [...] controlled HR controlled in 80-100s since admission [id number] Score: 4 (age, HTN, CAD) Continue metoprolol [...] I shared this visit with Elena Jessee MODEL AND DYE PERSON and guided the medical decision-making. * Deonna Rasheed, MODEL AND DYE PERSON - 07/27/2018 1:28 PM EDT Inpatient Cardiology Progress Note Patient Name: Agata Flores Service: ANTIQUER / PA Responsible Attending: Cameron Mahmood MD Reason for continued hospitalization: Evaluation and management of chest pain S/p cardiac catheterization, non-obstructive disease EP consult for a-fib management Active Problems: Active Hospital Problems Diagnosis ??? ASCVD (arteriosclerotic cardiovascular disease) PCI in 2005 at [facility]: stents to LAD x2, LCx x2, [...] x2, distal LCx x2, ramus x1 at [facility]), HTN, HLD, persistent a-fib (diagnosed 6 weeks ago, s/p DCCV 3weeks ago, on xarelto), and brain abscess (s/p surgery and abx treatment in 2014) who presented to [facility] with progressive dyspnea and lightheadedness on [...] Persistent a-fib, rate controlled HR controlled in 00675a since admission [id number] Score: 4 (age, HTN, CAD) Continue metoprolol, [...] with Cameron Mahmood MD. Deonna Rasheed, MSN, SALES PROJECT COORDINATOR-, JOSE 07/27/2018 Pager [phone] Associated attestation - Cameron Mahmood MD - 07/27/2018 3:58 PM EDT Cardiology Attending Addendum I shared this visit with Deonna Rasheed APRN, and guided the medical decision-making. * Min Jeffery II - 07/27/2018 11:33 AM EDT Agata Flores July 27, 2018 [id number] [id number] Dragger Out - Preliminary Findings Procedures: coronary angiography left [...] be: 4 (see definitions below). Definitions from [employer] Health and Aging Clinical Frailty [...] with all outside activities and with minor pharm tech. May need help with bathing and dressing. [...] this encounter H&P Notes * Deonna Rasheed, MODEL AND DYE PERSON - 07/26/2018 11:05 AM EDT Cardiology Admission H&P Patient Name: Agata Flores Date of : 1945 Age: 72 y.o. Hospital Admit Date: 07/26/2018 Inpatient Attending: Cameron Mahmood MD PCP: Agata Barrera, Presenting Diagnosis/Chief Complaint: Chest pressure Active Problem List: Active Hospital Problems Diagnosis ??? ASCVD (arteriosclerotic cardiovascular disease) PCI in 2005 at [facility]: stents to LAD x2, LCx x2, [...] x2, distal LCx x2, ramus x1 at [facility]), HTN, HLD, persistent a-fib (diagnosed 6 weeks ago, s/p DCCV 3 weeks ago, on xarelto), and brain abscess (s/p surgery and abx treatment in 2014) who presented to [facility] with progressive dyspnea and lightheadedness on [...] presumed to be in sinus rhythm. His milling operator, Dr. Ma, had also scheduled him for an outpatient nuclear stress test to be done in the coming weeks. On Friday, 07/24, he had an episode of chest pressure, occurring with his shortness of breath and lightheadedness on exertion. It was relieved with rest. He went to [facility] ED and was in a-fib with HR 80. Troponins were negative, EKG was without concerning findings. He was admitted to await transfer to [facility] for c ardiac catheterization, given his history of ASCVD. He had one additional episode of chest pressureon exertion while at [facility], when he had gotten up to [...] past. He was started on aspirin at [facility] without side effects. Past Medical History: Past Medical History: Diagnosis Date ??? A-fib ??? Brain abscess ??? CAD (coronary artery disease) ??? HLD (hyperlipidemia) ??? HTN (hypertension) Surgical History/Problems: Past Surgical History: Procedure Laterality Date ??? PRO STEREO BX/ASPIR/EXCIS, INTRACRANIAL LESN Right 01/27/2015 @STEREOTACTIC BX,ASP, OR EXC.-INTRACRANIAL LESION, W/SCAN performed by Jose Small MD at [facility] MAIN OR ??? 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: Review of [...] LAD x2, distalLCx x2, ramus x1 at [facility]), HTN, HLD, persistent a-fib (diagnosed 6 weeks ago, s/p DCCV 3 weeks ago, on xarelto), and brain abscess (s/p surgery and abx treatment in 2014) who presented to [facility] with progressive dyspnea and lightheadedness on [...] 2018 showed EF 60-65%, no WMAs, per [facility] notes) Plan for cardiac catheterization tomorrow No plavix or heparin at this time Continue aspirin, metoprolol, statin, SL nitro prn Persistent a-fib, rate controlled HR controlled in 80s since admission [id number] Score: 4 (age, HTN, CAD) Continue metoprolol [...] with Cameron Mahmood MD. Deonna Rasheed, MSN, SALES PROJECT COORDINATOR-ANDREEA, JOSE 07/26/2018 Pager [phone] Associated attestation - Cameron Mahmood MD - [...] (arteriosclerotic cardiovascular disease) PCI in 2005 at [facility]: stents to LAD x2, LCx x2, [...] get scripts to family to bring to [facility] pharm to ensure receipt prior to close [...] 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: MEDICARE Secondary Insurance: [employer] [place] Prescription Coverage: yes Preferred Pharmacy: See demographics Other: n/a Primary Care Provider: Agata Barrera DO [phone] Patient/Caregiver Goals of Treatment: To figure out [...] abx treatment in 2015) who presented to [facility] with dyspnea, lightheadedness and chest pressure. ??Plan is for [facility] tomorrow. Pt is independent with no home care needs identified. Plan: DC home/ Self care A member of the Care Management team will continue to monitor progress, follow for continuity of care and assist with transition of care planning. Corazon Allen RN Pager: [phone] * Consult Note - Danuta Kerr RN - 07/28/2018 9:47 AM EDT [facility] RESPONSE TEAM NOTE Name: Agata Flores Age: 72 y.o. Sex; Male Date of : 1945 Responding Members: Patt Kerr RN, Carmen Goetz RCP, Karen Martin RCP, Cindy LAY Date/Time of Admission: 07/26/2018 11:01 AM Unit/Room: [facility] Service: Cardiology Time Activated: 08 Time Arrived: 0834 Time at bedside: 60 minutes Indication for Consult: LOC ASSESSMENT/INTERVENTION Brief 24 hr history: Cary gamboa received at 0831. On arrival to room, Mr. Flores found supine onbathroom floor, wedged against wall. He was awake, in care of several 4E RN's and LITHOGRAPHIC PLATE MAKER APPRENTICE. No compressions had been administered. He had regular respirations, palp radial, appropriate verbal responses. Skin cool, pale quality, wet (from shower vs diaphoresis). Unprotected fall from toilet confirmed by patient and LITHOGRAPHIC PLATE MAKER APPRENTICE; CTLS precautions initiated. Per patient report, he had become dizzy at end of hisshower, had seated self on toilet and pulled cord in bathroom for assist. LITHOGRAPHIC PLATE MAKER APPRENTICE responded, left to obtain additional assist and on return found Mr. Flores on bathroom floor. Concern for initial status pr ompted Code Blue activation. Per report, likely full LOC as patient stated I sat on the toilet andthe next I knew I was on the floor. LOC described as brief, self resolving. ekg monitor had been disconnected for Mr. Flores [...] x2, distal LCx x2, ramus x1 at [facility]), HTN and HLD. His cardiac enzymes remained negative and his EKGs were not suggestive of ischemia. He was transferred to [facility] for cardiac catheterization which revealed non-obstructive CAD. [...] Pertinent Medications: Current Facility-Administered Medications Ordered in [facility] Medication Dose Route Frequency Provider Last Rate Last Dose ??? sodium chloride 0.9% infusion 100 mL/hr Intravenous Continuous Darion Machado MD 100 mL/hr at 07/27/18 1142 100 mL/hr at 07/27/18 1142 ??? rivaroxaban (XARELTO) tablet 20 mg 20 mg Oral Daily with dinner Kathya Deonna T, MODEL AND DYE PERSON ??? metoprolol tartrate (LOPRESSOR) tablet 25 mg 25 mg Oral Q6H POPPY Kathya, Deonna T, MODEL AND DYE PERSON 25 mg at 07/27/18 0612 ??? aspirin EC tablet 81 mg 81 mg Oral Daily Kathya, Deonna T, MODEL AND DYE PERSON 81 mg at 07/27/18 0811 ??? nitroGLYcerin (NITROSTAT) SL tablet 0.4 mg 0.4 mg Sublingual Q5 Min PRN Kathya, Deonna T, MODEL AND DYE PERSON ??? acetaminophen (TYLENOL) tablet 650 mg 650 mg Oral Q4H PRN Kathya, Deonna T, MODEL AND DYE PERSON ??? brimonidine (ALPHAGAN) 0.2 % ophthalmic solution 1 drop 1 drop Both Eyes BID Kathya, Deonna T,MODEL AND DYE PERSON 1 drop at 07/27/18 0811 And ??? timolol (TIMOPTIC) 0.5 % ophthalmic solution 1 drop 1 drop Both Eyes BID Kathya, Deonna T, MODEL AND DYE PERSON 1 drop at 07/27/18 0811 ??? rosuvastatin (CRESTOR) tablet 10 mg 10 mg Oral QPM Kathya, Deonna T, MODEL AND DYE PERSON 10 mg at 07/26/18 1636 No current [facility]-ordered outpatient prescriptions on file. 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 Provider: GAGE Aldridge Provider#: [id number] Consult attending physician: Alvaro Maki MD EP Consult positional pager #[phone](EPNE) EP Device interrogation positional pager # [phone] Associated attestation - Fred Maki MD - [...] further details. Deonna Rasheed APRN 07/26/2018 Pager [phone] documented in this encounter Plan of Treatment [...] Routine 07/27/2018 3:46 AM EDT CARDIAC ENZYMES ([facility]) STAT 07/26/2018 10:30 PM EDT CARDIAC ENZYMES ([facility]) STAT 07/26/2018 4:31 PM EDT SCAN, PERIPHERAL BLOOD STAT 8 11:44 AM EDT HEMOGRAM STAT 07/26/2018 11:44 AM EDT DIFFERENTIAL, AUTOMATED STAT 07/26/20 18 11:44 AM EDT CARDIAC ENZYMES ([facility]) STAT 07/26/2018 11:44 AM EDT APTT STAT [...] 11:14 AM EDT Chest pain, unspecified type 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 SCAN 07/26/2018 12:00 AM EDT documented in this encounter Results * EKG 12 Lead (08/01/2018 11:02 AM EDT) Ventricular rate 52 BPM MUSE SYSTEM Atrial Rate 53 BPM MUSE SYSTEM QRS Duration 76 ms MUSE SYSTEM Q-T Interval 482 ms MUSE SYSTEM QTC Calculated (Bezet) 448 ms MUSE SYSTEM Calculated P [place] 62 degrees MUSE SYSTEM Calculated R [place] 24 degrees MUSE SYSTEM Calculated T [place] 121 degrees MUSE SYSTEM INTERPRETATION Sinus bradycardia [...] 3:35 AM EDT) Neutrophil % 38.8 % [facility] Neutrophil Absolute 5.48 1.70 - 6.10 x10(3)/mc L [facility] Lymph % 15.9 % [facility] Lymphocytes Abs 2.2 0.9 - 3.2 x10(3)/mc L [facility] Monocyte % 7.1 % [facility] Monocyte Abs 1.0(H) 0.3 - 0.9 x10(3)/mc L [facility] Eos % 37.5 % [facility] Eosinophils Abs 5.3(H) 0.0 - 0.4 x10(3)/mc L [facility] Basophil % 0.5 % [facility] Baso Absolute 0.1 0.0 - 0.1 x10(3)/ L [facility] Immature Gran % 0.20 % [facility] Comment: Immature granulocytes(IG's)percentage and absolute count will include metamyelocytes, myelocytes, and promyelocytes. Blood smears from CBCs yielding IG's will be scanned manually for concordance. If this scan disagrees with the automated IG or if promyelocytes are noted, a manual differential will be performed. Immature Gran Absolute 0.03 0.00 - 0.04 x10(3)/ L [facility] Blood specimen (specimen) 08/01/2018 3:35 AM EDT 08/01/2018 3:56 AM EDT Narrative Resulting Agency Comment Spec In Lab Elena Hooks APRN HEMATOLOGY ORDERABLE S Performing Organization Address City/State/[facility] Co de Phone Number [facility] [place] [address] * (ABNORMAL) Hemogram (08/01/2018 3:35 AM EDT) White Blood Cell 14.1(H) 4.0 - 9.5 x10(3)/[facility] Red Blood Cell 4.27(L) 4.58 - 5.54 x10(6)/ L [facility] Hemoglobin 13.9 13.7 - 16.5 gm/dL [facility] Hematocrit 38.9(L) 40.5 - 48.5 % [facility] Mean Cell Volume 91.1 82.9 - 93.1 fL [facility] Mean Cell Hemoglobin 32.6(H) 27.5 - 32.1 pg [facility] Mean Cell Hemoglobin Concentration 35.7 32.0 - 35.7 gm/dL [facility] Platelet 198 145 - 357 x10(3)/ L [facility] RDW Standard Deviation 41.2 36.0 - 45.[address] [facility] RDW coefficient of variation 12.6 11.4 - 13.8 % [facility] Mean Platelet Volume 11.3 7.6 - 12.9 [facility] NRBC% auto 0.0 % [facility] NRBC Absolute 0.000 0.000 - 0.000 x10(3)/mc L [facility] Blood specimen (specimen) 08/01/2018 3:35 AM EDT 08/01/2018 3:56 AM EDT Narrative Resulting Agency Comment Spec In Lab Elena Hooks APRN HEMATOLOGY ORDERABLE S Performing Organization Address City/State/[facility] Co de Phone Number [facility] [place] [address] * (ABNORMAL) BMP w/fasting Glucose (08/01/2018 3:35 AM EDT) Glucose Fasting 110(H) 65 - 99 mg/dL [facility] Comment: ?Fasting* Glucose Interpretive Criteria [...] of Diabetes Mellitus, Position Statement from the [place] [employer]. ??Diabetes Care, Volume 33, Supplement 1, Dec 2009 Blood Urea Nitrogen 22(H) 10 - 20 mg/dL [facility] Creatinine 0.79(L) 0.80 - 1.50 mg/dL [facility] Sodium 137 135 - 145 mmol/L [facility] Potassium 4.4 3.5 - 5.0 mmol/L [facility] Comment: Please note: ??Patients with WBC >100,000 may have falsely elevated Potassium levels. ??For accurate Potassium quantification in these patients send serum separator tube (gold top) for subsequent determinations. ??Contact the Clinical Chemistry Laboratory if there are any questions. Chloride 102 98 - 107 mmol/L [facility] Carbon Dioxide 25 22 - 31 mmol/L [facility] Anion Gap 10 5 - 15 mmol/L [facility] Calcium 9.4 8.5 - 10.5 mg/dL [facility] Est Glomerular Filtration Rate 90 >=60 mL/min/1. 73 m?? [facility] Comment: The eGFR was calculated using the CKD-EPI equation. As with all creatinine based estimates of kidney function, eGFR values calculated with the CKD-EPI equation are not accurate in patients with acute kidney failure, extremes of body mass or the acutely ill. [email or web address]/[email or web address] eGFR 104 >=60 mL/min/1. 73 m?? [facility] Comment: The eGFR was calculated using the CKD-EPI equation. As with all creatinine based estimates of kidney function, eGFR values calculated with the CKD-EPI equation are not accurate in patients with acute kidney failure, extremes of body mass or the acutely ill. [email or web address] Blood specimen (specimen) 08/01/2018 3:35 AM EDT 08/01/2018 3:56 AM EDT Narrative Resulting Agency Comment Spec In Lab Elena Hooks APRN CHEMISTRY ORDERABLES [facility] [place] [address] * EKG 12 Lead (08/01/2018 12:00 AM EDT) Ventricular rate 58 BPM MUSE SYSTEM Atrial Rate 58 BPM MUSE SYSTEM P-R Interval 158 ms MUSE SYSTEM QRS Duration 82 ms MUSE SYSTEM Q-T Interval 530 ms MUSE SYSTEM QTC Calculated (Bezet) 520 ms MUSE SYSTEM Calculated P [place] 74 degrees MUSE SYSTEM Calculated R [place] 45 degrees MUSE SYSTEM Calculated T [place] 97 degrees MUSE SYSTEM INTERPRETATION Sinus bradycardia [...] EDT 08/01/2018 1:32 PM EDT Elena Hooks JOSE ECG ORDERABLES Performing Organization Address [facility] Co de Phone Number MUSE SYSTEM * EKG 12 Lead (07/31/2018 2:14 PM EDT) Ventricular rate 56 BPM MUSE SYSTEM Atrial Rate 56 BPM MUSE SYSTEM P-R Interval 162 ms MUSE SYSTEM QRS Duration 76 ms MUSE SYSTEM Q-T Interval 482 ms MUSE SYSTEM QTC Calculated (Bezet) 465 ms MUSE SYSTEM Calculated P [place] 70 degrees MUSE SYSTEM Calculated R [place] 17 degrees MUSE SYSTEM Calculated T [place] 134 degrees MUSE SYSTEM INTERPRETATION Sinus bradycardia [...] Hooks APRN ECG ORDERABLES Performing Organization Address [facility] Co de Phone Number MUSE SYSTEM * EKG 12 Lead (07/31/2018 8:32 AM EDT) Ventricular rate 54 BPM MUSE SYSTEM Atrial Rate 54 BPM MUSE SYSTEM P-R Interval 160 ms MUSE SYSTEM QRS Duration 78 ms MUSE SYSTEM Q-T Interval 498 ms MUSE SYSTEM QTC Calculated (Bezet) 472 ms MUSE SYSTEM Calculated P [place] 67 degrees MUSE SYSTEM Calculated R [place] 12 degrees MUSE SYSTEM Calculated T [place] 128 degrees MUSE SYSTEM INTERPRETATION Sinus bradycardia with marked sinus arrhythmia Low voltage QRS Nonspecific T wave abnormality Prolonged QT Abnormal ECG When compared with ECG of 31-JUL-2018 07:44, No significant change was found Confirmed by Denys Miller MD ([id number]) on 07/31/2018 5:01:20 PM MUSE SYSTEM 07/31/2018 8:32 AM EDT 07/31/2018 5:01 PM EDT Ant Suarez MD ECG ORDERABLES Performing Organization Address [facility] Phone Number MUSE SYSTEM * EKG 12 Lead (07/31/2018 7:44 AM EDT) Ventricular rate 56 BPM MUSE SYSTEM Atrial Rate 56 BPM MUSE SYSTEM P-R Interval 164 ms MUSE SYSTEM QRS Duration 84 ms MUSE SYSTEM Q-T Interval 494 ms MUSE SYSTEM QTC Calculated (Bezet) 476 ms MUSE SYSTEM Calculated P [place] 71 degrees MUSE SYSTEM Calculated R [place] 15 degrees MUSE SYSTEM Calculated T [place] 127 degrees MUSE SYSTEM INTERPRETATION Sinus bradycardia [...] Hooks APRN ECG ORDERABLES Performing Organization Address [facility] Phone Number MUSE SYSTEM * (ABNORMAL) Differential, Automated (07/31/2018 6:33 AM EDT) Neutrophil % 39.3 % [facility] Neutrophil Absolute 5.61 1.70 - 6.10 x10(3)/mc L [facility] Lymph % 13.7 % [facility] Lymphocytes Abs 2.0 0.9 - 3.2 x10(3)/mc L [facility] Monocyte % 7.4 % [facility] Monocyte Abs 1.0(H) 0.3 - 0.9 x10(3)/[facility] Eos % 38.8 % [facility] Eosinophils Abs 5.5(H) 0.0 - 0.4 x10(3)/[facility] Basophil % 0.6 % [facility] Baso Absolute 0.1 0.0 - 0.1 x10(3)/[facility] Immature Gran % 0.20 % [facility] Comment: Immature granulocytes(IG's)percentage and absolute count will include metamyelocytes, myelocytes, and promyelocytes. Blood smears from CBCs yielding IG's will be scanned manually for concordance. If this scan disagrees with the automated IG or if promyelocytes are noted, a manual differential will be performed. Immature Gran Absolute 0.03 0.00 - 0.04 x10(3)/[facility] Blood specimen (specimen) 07/31/2018 6:33 AM EDT 07/31/2018 6:52 AM EDT Narrative Resulting Agency Comment Spec In Lab Elena Hooks APRN HEMATOLOGY ORDERABLE S [facility] [place] [address] * (ABNORMAL) Hemogram (07/31/2018 6:33 AM EDT) White Blood Cell 14.3(H) 4.0 - 9.5 x10(3)/[facility] Red Blood Cell 4.92 4.58 - 5.54 x10(6)/[facility] Hemoglobin 15.8 13.7 - 16.5 gm/dL [facility] Hematocrit 45.2 40.5 - 48.5 % [facility] Mean Cell Volume 91.9 82.9 - 93.1 fL [facility] Mean Cell Hemoglobin 32.1 27.5 - 32.1 pg [facility] Mean Cell Hemoglobin Concentration 35.0 32.0 - 35.7 gm/dL [facility] Platelet 183 145 - 357 x10(3)/mc L [facility] RDW Standard Deviation 42.5 36.0 - 45.0 fL [facility] RDW coefficient of variation 12.6 11.4 - 13.8 % [facility] Mean Platelet Volume 11.0 7.6 - 12.9 fL [facility] NRBC% auto 0.0 % [facility] NRBC Absolute 0.000 0.000 - 0.000 x10(3)/mc L [facility] Blood specimen (specimen) 07/31/2018 6:33 AM EDT 07/31/2018 6:52 AM EDT Narrative Resulting Agency Comment Spec In Lab Elena Hooks APRN HEMATOLOGY ORDERABLE S Performing Organization Address City/State/[facility] Co de Phone Number [facility] [place] [address] * (ABNORMAL) BMP w/fasting Glucose (07/31/2018 6:33 AM EDT) Glucose Fasting 107(H) 65 - 99 mg/dL [facility] Comment: ?Fasting* Glucose Interpretive Criteria [...] of Diabetes Mellitus, Position Statement from the [place] [employer]. ??Diabetes Care, Volume 33, Supplement 1, Dec 2009 Blood Urea Nitrogen 22(H) 10 - 20 mg/dL [facility] Creatinine 0.75(L) 0.80 - 1.50 mg/dL [facility] Sodium 140 135 - 145 mmol/L [facility] Potassium 4.3 3.5 - 5.0 mmol/L [facility] Comment: Please note: ??Patients with WBC >100,000 may have falsely elevated Potassium levels. ??For accurate Potassium quantification in these patients send serum separator tube (gold top) for subsequent determinations. ??Contact the Clinical Chemistry Laboratory if there are any questions. Chloride 100 98 - 107 mmol/L [facility] Carbon Dioxide 27 22 - 31 mmol/L [facility] Anion Gap 13 5 - 15 mmol/L [facility] Calcium 9.6 8.5 - 10.5 mg/dL [facility] Est Glomerular Filtration Rate 92 >=60 mL/min/1. 73 m?? [facility] Comment: The eGFR was calculated using the CKD-EPI equation. As with all creatinine based estimates of kidney function, eGFR values calculated with the CKD-EPI equation are not accurate in patients with acute kidney failure, extremes of body mass or the acutely ill. [email or web address]/[email or web address] eGFR 106 >=60 mL/min/1. 73 m?? [facility] Comment: The eGFR was calculated using the CKD-EPI equation. As with all creatinine based estimates of kidney function, eGFR values calculated with the CKD-EPI equation are not accurate in patients with acute kidney failure, extremes of body mass or the acutely ill. [email or web address] Blood specimen (specimen) 07/31/2018 6:33 AM EDT 07/31/2018 6:52 AM EDT Narrative Resulting Agency Comment Spec In Lab Elena Hooks APRN CHEMISTRY ORDERABLES [facility] [place] [address] * EKG 12 Lead (07/31/2018 12:17 AM EDT) Ventricular rate 68 BPM MUSE SYSTEM Atrial Rate 68 BPM MUSE SYSTEM P-R Interval 176 ms MUSE SYSTEM QRS Duration 74 ms MUSE SYSTEM Q-T Interval 490 ms MUSE SYSTEM QTC Calculated (Bezet) 521 ms MUSE SYSTEM Calculated P [place] 80 degrees MUSE SYSTEM Calculated R [place] 22 degrees MUSE SYSTEM Calculated T [place] 73 degrees MUSE SYSTEM INTERPRETATION Sinus rhythm [...] Hooks APRN ECG ORDERABLES Performing Organization Address [facility] de Phone Number MUSE SYSTEM * EKG 12 Lead (07/30/2018 12:36 PM EDT) Ventricular rate 58 BPM MUSE SYSTEM Atrial Rate 58 BPM MUSE SYSTEM P-R Interval 170 ms MUSE SYSTEM QRS Duration 74 ms MUSE SYSTEM Q-T Interval 490 ms MUSE SYSTEM QTC Calculated (Bezet) 481 ms MUSE SYSTEM Calculated P [place] 73 degrees MUSE SYSTEM Calculated R [place] 20 degrees MUSE SYSTEM Calculated T [place] 149 degrees MUSE SYSTEM INTERPRETATION Sinus bradycardia [...] Maki MD ECG ORDERABLES Performing Organization Address [facility] Co de Phone Number MUSE SYSTEM * CARDIOVERSION-OR (07/30/2018 12:12 PM EDT) Narrative Migeul De Los Santos PA - 07/30/2018 12:12 PM EDT Miguel De Los Santos PA ? 07/30/2018 12:12 PM Direct Current Cardioversion Procedure Note: Date of Procedure: 07/26/2018 Attending: Fred Maki MD PA: Miguel De Los Santos PA Indication: persistent atrial fibrillation Patient Active Problem List Diagnosis ? ? ASCVD (arteriosclerotic cardiovascular disease) ??PCI in 2005 at [facility]: stents to LAD x2, LCx x2, [...] (Bezet) 522 ms MUSE SYSTEM Calculated R [place] 21 degrees MUSE SYSTEM Calculated T [place] -141 degrees MUSE SYSTEM INTERPRETATION Atrial flutter with variable A-V block Abnormal ECG When compared with ECG of 30-JUL-2018 07:34, No significant change was found Confirmed by MD PAT, KURTIS ([id number]) on 07/30/2018 4:46:36 PM MUSE SYSTEM 07/30/2018 10:0 4 AM EDT 07/30/2018 4:46 PM EDT Elena Hooks MODEL AND DYE PERSON ECG ORDERABLES Performing Organization Address City/[facility]/ZIP Co de Phone Number MUSE SYSTEM * EKG 12 Lead (07/30/2018 7:34 AM EDT) Ventricular rate 90 BPM MUSE SYSTEM Atrial Rate 90 BPM MUSE SYSTEM QRS Duration 74 ms MUSE SYSTEM Q-T Interval 392 ms MUSE SYSTEM QTC Calculated (Bezet) 479 ms MUSE SYSTEM Calculated R [place] 22 degrees MUSE SYSTEM Calculated T [place] 107 degrees MUSE SYSTEM INTERPRETATION Atrial flutter with variable A-V block with premature ventricular or aberrantly conducted complexes Abnormal ECG When compared with ECG of 29-JUL-2018 23:04, (unconfirmed) Current undetermined rhythm precludes rhythm comparison, needs review No significant change was found Confirmed by MD Cintia, Fidel ([id number]) on 07/30/2018 3:49:11 PM MUSE SYSTEM 07/30/2018 7:34 AM EDT 07/30/2018 3:49 PM EDT Elena Hooks MODEL AND DYE PERSON ECG ORDERABLES Performing Organization Address [facility]/ZIP Co de Phone Number MUSE SYSTEM * (ABNORMAL) Differential, Automated (07/30/2018 4:06 AM EDT) Neutrophil % 57.5 % [facility] Neutrophil Absolute 9.87(H) 1.70 - 6.10 x10(3)/mc L [facility] Lymph % 11.4 % [facility] Lymphocytes Abs 2.0 0.9 - 3.2 x10(3)/mc L [facility] Monocyte % 7.5 % [facility] Monocyte Abs 1.3(H) 0.3 - 0.9 x10(3)/mc L [facility] Eos % 23.0 % [facility] Eosinophils Abs 4.0(H) 0.0 - 0.4 x10(3)/mc L [facility] Basophil % 0.3 % [facility] Baso Absolute 0.0 0.0 - 0.1 x10(3)/ L [facility] Immature Gran % 0.30 % [facility] Comment: Immature granulocytes(IG's)percentage and absolute count will include metamyelocytes, myelocytes, and promyelocytes. Blood smears from CBCs yielding IG's will be scanned manually for concordance. If this scan disagrees with the automated IG or if promyelocytes are noted, a manual differential will be performed. Immature Gran Absolute 0.06(H) 0.00 - 0.04 x10(3)/ L [facility] Blood specimen (specimen) 07/30/2018 4:06 AM EDT 07/30/2018 4:38 AM EDT Narrative Resulting Agency Comment Spec In Lab Deonna Rasheed [employer]DEL [employer] DYE PERSON HEMATOLOGY ORDERAB LES Performing Organization Address City/State/[facility] Co de Phone Number [facility] [place] [address] * (ABNORMAL) Hemogram (07/30/2018 4:06 AM EDT) White Blood Cell 17.2(H) 4.0 - 9.5 x10(3)/ L [facility] Red Blood Cell 4.75 4.58 - 5.54 x10(6)/ L [facility] Hemoglobin 15.0 13.7 - 16.5 gm/dL [facility] Hematocrit 43.5 40.5 - 48.5 % [facility] Mean Cell Volume 91.6 82.9 - 93.1 fL [facility] Mean Cell Hemoglobin 31.6 27.5 - 32.1 pg [facility] Mean Cell Hemoglobin Concentration 34.5 32.0 - 35.7 gm/dL [facility] Platelet 197 145 - 357 x10(3)/mc L [facility] RDW Standard Deviation 42.6 36.0 - 45.0 fL [facility] RDW coefficient of variation 12.8 11.4 - 13.8 % [facility] Mean Platelet Volume 10.9 7.6 - 12.9 fL [facility] NRBC% auto 0.0 % [facility] NRBC Absolute 0.000 0.000 - 0.000 x10(3)/mc L [facility] Blood specimen (specimen) 07/30/2018 4:06 AM EDT 07/30/2018 4:38 AM EDT Narrative Resulting Agency Comment Spec In Lab Deonna Rasheed APRN HEMATOLOGY ORDERAB LES Performing Organization Address [facility] de Phone Number [facility] [place] [address] * Magnesium (07/30/2018 4:06 AM EDT) Magnesium 0.83 0.69 - 1.07 mmol/L [facility] Blood specimen (specimen) 07/30/2018 4:06 AM EDT 07/30/2018 4:38 AM EDT Narrative Resulting Agency Comment Spec In Lab Deonna Rasheed MODEL [employer] D[employer] PERSON CHEMISTRY ORDERABL ES Performing Organization Address [facility] Phone Number [facility] [place] [address] * (ABNORMAL) BMP w/fasting Glucose (07/30/2018 4:06 AM EDT) Glucose Fasting 110(H) 65 - 99 mg/dL [facility] Comment: ?Fasting* Glucose Interpretive Criteria [...] of Diabetes Mellitus, Position Statement from the [place] [employer]. ??Diabetes Care, Volume 33, Supplement 1, Dec 2009 Blood Urea Nitrogen 19 10 - 20 mg/dL [facility] Creatinine 0.81 0.80 - 1.50 mg/dL [facility] Sodium 138 135 - 145 mmol/L [facility] Potassium 4.1 3.5 - 5.0 mmol/L [facility] Comment: Please note: ??Patients with WBC >100,000 may have falsely elevated Potassium levels. ??For accurate Potassium quantification in these patients send serum separator tube (gold top) for subsequent determinations. ??Contact the Clinical Chemistry Laboratory if there are any questions. Chloride 101 98 - 107 mmol/L [facility] Carbon Dioxide 24 22 - 31 mmol/L [facility] Anion Gap 13 5 - 15 mmol/L [facility] Calcium 9.3 8.5 - 10.5 mg/dL [facility] Est Glomerular Filtration Rate 89 >=60 mL/min/1. 73 m?? [facility] Comment: The eGFR was calculated using the CKD-EPI equation. As with all creatinine based estimates of kidney function, eGFR values calculated with the CKD-EPI equation are not accurate in patients with acute kidney failure, extremes of body mass or the acutely ill. [email or web address]://[employer]/[email or web address] eGFR 103 >=60 mL/min/1. 73 m?? [facility] Comment: The eGFR was calculated using the CKD-EPI equation. As with all creatinine based estimates of kidney function, eGFR values calculated with the CKD-EPI equation are not accurate in patients with acute kidney failure, extremes of body mass or the acutely ill. [email or web address]/[facility] Blood specimen (specimen) 07/30/2018 4:06 AM EDT 07/30/2018 4:38 AM EDT Narrative Resulting Agency Comment Spec In Lab Deonna Rasheed APRN CHEMISTRY ORDERABL ES [facility] [place] [address] * EKG 12 Lead (07/29/2018 11:04 PM EDT) Ventricular rate 101 BPM MUSE SYSTEM Atrial Rate 104 BPM MUSE SYSTEM P-R Interval 176 ms MUSE SYSTEM QRS Duration 78 ms MUSE SYSTEM Q-T Interval 380 ms MUSE SYSTEM QTC Calculated (Bezet) 492 ms MUSE SYSTEM Calculated P [place] 106 degrees MUSE SYSTEM Calculated R [place] 26 degrees MUSE SYSTEM Calculated T [place] 167 degrees MUSE SYSTEM INTERPRETATION Probable Atrial flutter with variable A-V block PVCs vs abbarrently conducted supraventricular beats Abnormal ECG When compared with ECG of 29-JUL-2018 07:21, No significant change was found Confirmed by MD PAT, KURTIS ([id number]) on 07/30/2018 4:45:35 PM MUSE SYSTEM 07/29/2018 11:0 4 PM EDT 07/30/2018 4:45 PM EDT Deonna Rasheed APRN ECG ORDERABLES MUSE SYSTEM * NENO W LMTD SPECTRAL DOPPLER COLOR DOPPLER (07/29/2018 3:33 PM EDT) EF 65 HEARTLAB SYSTEM Anatomical Region Laterality Modality Other 07/29/2018 Narrative 07/29/2018 3:51 PM EDT Procedure: ?Transesophageal Echocardiogram Patient: ?YOAN Haines ?(Age): 1945(72y) Med Rec#: ? [id number] ?Sex: ?M ? Site Loc: ? [facility] ?Ht / Wt: ??188(cm)/97(kg) Pt. Loc: ?Dragger Out ?BSA: ?2.24 Study Date: ?? 07/29/2018 ?Pt. Type: Tape: ? Referring: CLAUDIA JONES Reading: Ant Suarez ([id number]) Seed Corn Manager Production: Tricia Donis ([id number]) Interpreting Fellow: Tricia Donis ([id number]) Diagnosis: *Unspecified atrial fibrillation (I48.91) Rhythm: ? [...] under the supervision of Dr. Suarez. ?The [facility] Echo Lab protocols for NENO procedures in [...] 07/29/2018 15:50:44 Images reviewed and interpretation verified [facility] Cardiac Ultrasound Laboratory Procedure Note Ant Suarez MD - 07/29/2018 Procedure: Transesophageal Echocardiogram Patient: YOAN AVELAR(Age): 1945(72y) Med Rec#: [id number] Sex: M Site Loc: [facility] Ht / Wt: 188(cm)/97(kg) Pt. Loc: Dragger Out BSA: 2.24 Study Date: 07/29/2018 Pt. Type: Tape: Referring: CLAUDIA JONES Reading: Ant Suarez ([id number]) Seed Corn Manager Production: Tricia Donis ([id number]) Interpreting Fellow: Tricia Donis ([id number]) Diagnosis: *Unspecified atrial fibrillation (I48.91) Rhythm: A-Fib [...] under the supervision of Dr. Suarez. The [facility] Echo Lab protocols for NENO procedures in [...] 07/29/2018 15:50:44 Images reviewed and interpretation verified [facility] Cardiac Ultrasound Laboratory Deonna Rasheed APRN ECHO ORDERABLES * Urine Hold (07/29/2018 1:38 PM EDT) Hold, Urine Sample in lab. [facility] Urine specimen (specimen) Urine / Unknown 07/29/2018 1:38 PM EDT 07/29/2018 2:45 PM EDT Elena Hooks APRN URINE ORDERABLES [facility] [place] [address] * Urinalysis with reflex Culture (07/29/2018 1:38 PM EDT) Glucose, Urine Dipstick Negative Negative mg/dL [facility] Protein, Urine Dipstick Negative Negative mg/dL [facility] Bilirubin, Urine Dipstick Negative Negative mg/dL [facility] Comment: Clinical correlation required for positive Urine Bilirubin results as false positive may occur with some drugs and drug related products. If a false positive is suspected a serum total bilirubin should be considered if clinically indicated. Urobilinogen, Urine Dipstick Normal Normal mg/dL [facility] pH, Urn (dipstick) 5.0 5.0 - 8.0 [facility] Blood, Urine Dipstick Negative Negative mg/dL [facility] Ketone, Urine Dipstick Negative Negative mg/dL [facility] Nitrite, Urine Dipstick Negative Negative [facility] Leukocytes, Urine Dipstick Negative Negative [facility] Appearance, Urine Dipstick Clear Clear [facility] Specific [place] Urine Automated 1.020 1.002 - 1.030 [facility] Color, Urine Dipstick Yellow Yellow [facility] Reflex to Culture No [facility] Urine specimen obtained by clean catch procedure (specimen) 07/29/2018 1:38 PM EDT 07/29/2018 2:45 PM EDT Narrative Resulting Agency Comment Spec In Lab Elena Hooks APRN URINE ORDERABLES Performing Organization Address City/[facility]/ZIP Co de Phone Number [facility] [place] [address] * EKG 12 Lead (07/29/2018 7:21 AM EDT) Ventricular rate 84 BPM MUSE SYSTEM Atrial Rate 375 BPM MUSE SYSTEM QRS Duration 72 ms MUSE SYSTEM Q-T Interval 400 ms MUSE SYSTEM QTC Calculated (Bezet) 472 ms MUSE SYSTEM Calculated R [place] 9 degrees MUSE SYSTEM Calculated T [place] 10 degrees MUSE SYSTEM INTERPRETATION Atrial fibrillation Abnormal ECG When compared with ECG of 28-JUL-2018 08:44, (unconfirmed) No significant change was found I personally reviewed the tracing and edited the fellows interpretation Confirmed by fellow MD Langley Daniel ([id number]) on 07/29/2018 2:47:56 PM Confirmed by MD Colton, Humble White ([id number]) on 07/29/2018 4:42:19 PM MUSE SYSTEM 07/29/2018 7:21 AM EDT 07/29/2018 4:42 PM EDT Deonna Rasheed APRN ECG ORDERABLES MUSE SYSTEM * (ABNORMAL) Differential, Automated (07/29/2018 5:17 AM EDT) Neutrophil % 50.1 % [facility] Neutrophil Absolute 7.84(H) 1.70 - 6.10 x10(3)/mc L [facility] Lymph % 11.6 % [facility] Lymphocytes Abs 1.8 0.9 - 3.2 x10(3)/[facility] Monocyte % 6.9 % [facility] Monocyte Abs 1.1(H) 0.3 - 0.9 x10(3)/[facility] Eos % 30.7 % [facility] Eosinophils Abs 4.8(H) 0.0 - 0.4 x10(3)/[facility] Basophil % 0.3 % [facility] Baso Absolute 0.0 0.0 - 0.1 x10(3)/[facility] Immature Gran % 0.40 % [facility] Comment: Immature granulocytes(IG's)percentage and absolute count will include metamyelocytes, myelocytes, and promyelocytes. Blood smears from CBCs yielding IG's will be scanned manually for concordance. If this scan disagrees with the automated IG or if promyelocytes are noted, a manual differential will be performed. Immature Gran Absolute 0.06(H) 0.00 - 0.04 x10(3)/[facility] Blood specimen (specimen) 07/29/2018 5:17 AM EDT 07/29/2018 5:44 AM EDT Narrative Resulting Agency Comment Spec In Lab Deonna Rasheed MODEL AND DYE PERSON HEMATOLOGY ORDERAB LES [facility] [place] [address] * (ABNORMAL) Hemogram (07/29/2018 5:17 AM EDT) White Blood Cell 15.6(H) 4.0 - 9.5 x10(3)/[facility] Red Blood Cell 4.93 4.58 - 5.54 x10(6)/[facility] Hemoglobin 15.7 13.7 - 16.5 gm/dL [facility] Hematocrit 45.2 40.5 - 48.5 % [facility] Mean Cell Volume 91.7 82.9 - 93.1 [facility] Mean Cell Hemoglobin 31.8 27.5 - 32.1 pg [facility] Mean Cell Hemoglobin Concentration 34.7 32.0 - 35.7 gm/dL [facility] Platelet 208 145 - 357 x10(3)/mc L [facility] RDW Standard Deviation 42.3 36.0 - 45.0 [facility] RDW coefficient of variation 12.7 11.4 - 13.8 % [facility] Mean Platelet Volume 11.1 7.6 - 12.9 [facility] LABORATORY NRBC% auto 0.0 % [facility] NRBC Absolute 0.000 0.000 - 0.000 x10(3)/mc L [facility] Blood specimen (specimen) 07/29/2018 5:17 AM EDT 07/29/2018 5:44 AM EDT Narrative Resulting Agency Comment Spec In Lab Deonna Rasheed APRN HEMATOLOGY ORDERAB LES Performing Organization Address [facility]/ZIP Co de Phone Number [facility] [place] [address] * Magnesium (07/29/2018 5:17 AM EDT) Magnesium 0.85 0.69 - 1.07 mmol/L [facility] Blood specimen (specimen) 07/29/2018 5:17 AM EDT 07/29/2018 5:44 AM EDT Narrative Resulting Agency Comment Spec In Lab Deonna Rasheed MODEL AND DYE PERSON CHEMISTRY ORDERABL ES Performing Organization Address [facility]/ZIP Co de Phone Number [facility] [address] * (ABNORMAL) BMP w/fasting Glucose (07/29/2018 5:17 AM EDT) [facility] Signature Glucose Fasting 107(H) 65 - 99 mg/dL [facility] Comment: ?Fasting* Glucose Interpretive Criteria [...] of Diabetes Mellitus, Position Statement from the [place] Diabetes Association. ??Diabetes Care, Volume 33, Supplement 1, Dec 2009 Blood Urea Nitrogen 20 10 - 20 mg/dL [facility] Creatinine 0.86 0.80 - 1.50 mg/dL [facility] Sodium 139 135 - 145 mmol/L [facility] Potassium 4.3 3.5 - 5.0 mmol/L [facility] Comment: Please note: ??Patients with WBC >100,000 may have falsely elevated Potassium levels. ??For accurate Potassium quantification in these patients send serum separator tube (gold top) for subsequent determinations. ??Contact the Clinical Chemistry Laboratory if there are any questions. Chloride 102 98 - 107 mmol/L [facility] Carbon Dioxide 25 22 - 31 mmol/L [facility] Anion Gap 12 5 - 15 mmol/L [facility] Calcium 9.4 8.5 - 10.5 mg/dL [facility] Est Glomerular Filtration Rate 87 >=60 mL/min/1. 73 m?? [facility] Comment: The eGFR was calculated using the CKD-EPI equation. As with all creatinine based estimates of kidney function, eGFR values calculated with the CKD-EPI equation are not accurate in patients with acute kidney failure, extremes of body mass or the acutely ill. http://[employer]/[facility]kf eGFR 100 >=60 mL/min/1. 73 m?? [facility] Comment: The eGFR was calculated using the CKD-EPI equation. As with all creatinine based estimates of kidney function, eGFR values calculated with the CKD-EPI equation are not accurate in patients with acute kidney failure, extremes of body mass or the acutely ill. http://[employer]/[facility] Blood specimen (specimen) 07/29/2018 5:17 AM EDT 07/29/2018 5:44 AM EDT Narrative Resulting Agency Comment Spec In Lab Deonna T Kathya MODEL AND DYE PERSON CHEMISTRY ORDERABL ES [facility] [place] [address] * CT Cervical Spine wo Contrast (07/28/2018 [...] No acute cervical spine fracture. Elena Hooks [facility] CT ORDERABLES * CT Head wo Contrast [...] to adjacentdental disease. 10:37 AM Elena Hooks MODEL AND DYE PERSON IMG CT ORDERABLES * POCT Glucose (07/28/2018 9:12 AM EDT) [facility] Glucose, POC 191 65 - 199 mg/dL [facility] Comment: Supplemental ranges: <140 mg/dL before meals <180 mg/dL all other times of the day Blood specimen (specimen) 07/28/2018 9:12 AM EDT 07/28/2018 9:12 AM EDT Cameron Mahmood MD POINT OF CARE TEST O RDERABLES [facility] [place] [address] * EKG 12 Lead (07/28/2018 8:44 AM EDT) Ventricular rate 77 BPM MUSE SYSTEM Atrial Rate 357 BPM MUSE SYSTEM QRS Duration 76 ms MUSE SYSTEM Q-T Interval 410 ms MUSE SYSTEM QTC Calculated (Bezet) 463 ms MUSE SYSTEM Calculated R [place] 14 degrees MUSE SYSTEM Calculated T [place] 48 degrees MUSE SYSTEM INTERPRETATION Atrial fibrillation Abnormal ECG When compared with ECG of 28-JUL-2018 07:19, No significant change was found I personally reviewed the tracing and edited the fellows interpretation Confirmed by fellow MD Langley Daniel ([id number]) on 07/29/2018 2:53:27 PM Confirmed by MD Segura Shawn M. ([id number]) on 07/29/2018 4:42:14 PM MUSE SYSTEM 07/28/2018 8:44 AM EDT 07/29/2018 4:42 PM EDT Deonna T Kathya [employer]DEL AND DYE PERSON ECG ORDERABLES Performing Organization Address [facility] de Phone Number MUSE SYSTEM * EKG 12 Lead (07/28/2018 7:19 AM EDT) Ventricular rate 81 BPM MUSE SYSTEM Atrial Rate 326 BPM MUSE SYSTEM QRS Duration 76 ms MUSE SYSTEM Q-T Interval 402 ms MUSE SYSTEM QTC Calculated (Bezet) 466 ms MUSE SYSTEM Calculated R [place] 7 degrees MUSE SYSTEM Calculated T [place] 63 degrees MUSE SYSTEM INTERPRETATION Atrial fibrillation Abnormal ECG When compared with ECG of 27-JUL-2018 07:24, No significant change was found I personally reviewed the tracing and edited the fellows interpretation Confirmed by fellow MD Langley Daniel ([id number]) on 07/28/2018 8:28:08 AM Confirmed by MD Segura Shawn M. ([id number]) on 07/28/2018 5:49:00 PM MUSE SYSTEM 07/28/2018 7:19 AM EDT 07/28/2018 5:49 PM EDT Deonna T Kathya CARRILLON ECG ORDERABLES Performing Organization Address [facility] de Phone Number MUSE SYSTEM * (ABNORMAL) Differential, Automated (07/28/2018 3:54 AM EDT) Neutrophil % 41.8 % [facility] Neutrophil Absolute 6.28(H) 1.70 - 6.10 x10(3)/mc L [facility] Lymph % 13.3 % [facility] Lymphocytes Abs 2.0 0.9 - 3.2 x10(3)/mc L [facility] Monocyte % 5.8 % [facility] Monocyte Abs 0.9 0.3 - 0.9 x10(3)/mc L [facility] Eos % 38.3 % [facility] Eosinophils Abs 5.8(H) 0.0 - 0.4 x10(3)/mc L [facility] Basophil % 0.6 % [facility] Baso Absolute 0.1 0.0 - 0.1 x10(3)/[facility] Immature Gran % 0.20 % [facility] Comment: Immature granulocytes(IG's)percentage and absolute count will include metamyelocytes, myelocytes, and promyelocytes. Blood smears from CBCs yielding IG's will be scanned manually for concordance. If this scan disagrees with the automated IG or if promyelocytes are noted, a manual differential will be performed. Immature Gran Absolute 0.03 0.00 - 0.04 x10(3)/[facility] Blood specimen (specimen) 07/28/2018 3:54 AM EDT 07/28/2018 4:10 AM EDT Narrative Resulting Agency Comment Spec In Lab Deonna Rasheed APRN HEMATOLOGY ORDERAB LES Performing Organization Address City/State/[facility] Co de Phone Number [facility] [place] [address] * (ABNORMAL) Hemogram (07/28/2018 3:54 AM EDT) White Blood Cell 15.0(H) 4.0 - 9.5 x10(3)/[facility] Red Blood Cell 5.08 4.58 - 5.54 x10(6)/[facility] Hemoglobin 16.3 13.7 - 16.5 gm/dL [facility] Hematocrit 46.4 40.5 - 48.5 % [facility] Mean Cell Volume 91.3 82.9 - 93.1 fL [facility] Mean Cell Hemoglobin 32.1 27.5 - 32.1 pg [facility] Mean Cell Hemoglobin Concentration 35.1 32.0 - 35.7 gm/dL [facility] Platelet 203 145 - 357 x10(3)/ L [facility] RDW Standard Deviation 42.5 36.0 - 45.0 fL [facility] RDW coefficient of variation 12.6 11.4 - 13.8 % [facility] Mean Platelet Volume 11.0 7.6 - 12.9 fL [facility] NRBC% auto 0.0 % [facility] NRBC Absolute 0.000 0.000 - 0.000 x10(3)/mc L [facility] Blood specimen (specimen) 07/28/2018 3:54 AM EDT 07/28/2018 4:10 AM EDT Narrative Resulting Agency Comment Spec In Lab Deonna Rasheed APRN HEMATOLOGY ORDERAB LES Performing Organization Address [facility] Co de Phone Number [facility] [place] [address] * Magnesium (07/28/2018 3:54 AM EDT) Magnesium 0.86 0.69 - 1.07 mmol/L [facility] Blood specimen (specimen) 07/28/2018 3:54 AM EDT 07/28/2018 4:10 AM EDT Narrative Resulting Agency Comment Spec In Lab Deonna Rasheed APRN CHEMISTRY ORDERABL ES Performing Organization Address [facility] de Phone Number [facility] [place] [address] * (ABNORMAL) BMP w/fasting Glucose (07/28/2018 3:54 AM EDT) Glucose Fasting 118(H) 65 - 99 mg/dL [facility] Comment: ?Fasting* Glucose Interpretive Criteria [...] of Diabetes Mellitus, Position Statement from the [place] Diabetes [employer]. ??Diabetes Care, Volume 33, Supplement 1, Dec 2009 Blood Urea Nitrogen 19 10 - 20 mg/dL [facility] Creatinine 0.83 0.80 - 1.50 mg/dL [facility] Sodium 140 135 - 145 mmol/L [facility] Potassium 4.4 3.5 - 5.0 mmol/L [facility] Comment: Please note: ??Patients with WBC >100,000 may have falsely elevated Potassium levels. ??For accurate Potassium quantification in these patients send serum separator tube (gold top) for subsequent determinations. ??Contact the Clinical Chemistry Laboratory if there are any questions. Chloride 103 98 - 107 mmol/L [facility] Carbon Dioxide 26 22 - 31 mmol/L [facility] Anion Gap 11 5 - 15 mmol/L [facility] Calcium 9.7 8.5 - 10.5 mg/dL [facility] Est Glomerular Filtration Rate 88 >=60 mL/min/1. 73 m?? [facility] Comment: The eGFR was calculated using the CKD-EPI equation. As with all creatinine based estimates of kidney function, eGFR values calculated with the CKD-EPI equation are not accurate in patients with acute kidney failure, extremes of body mass or the acutely ill. http://[employer]/[facility]SAnkf eGFR 102 >=60 mL/min/1. 73 m?? [facility] Comment: The eGFR was calculated using the CKD-EPI equation. As with all creatinine based estimates of kidney function, eGFR values calculated with the CKD-EPI equation are not accurate in patients with acute kidney failure, extremes of body mass or the acutely ill. [email or web address] Blood specimen (specimen) 07/28/2018 3:54 AM EDT 07/28/2018 4:10 AM EDT Narrative Resulting Agency Comment Spec In Lab Deonna Rasheed MODEL AND DYE PERSON CHEMISTRY ORDERABL ES [facility] [place] [address] * CARDIAC CATHETERIZATION (07/27/2018 11:30 AM EDT) Anatomical Region Laterality Modality Other Narrative 07/27/2018 11:39 AM EDT ?[facility] ? Cardiac Catheterization/Intervention Report ? Patient Name: Agata Flores Zaki. ? Procedure Date: 07/27/2018 ? A #: [id number] ? Primary Physician: Min Jeffery ? Case #: [id number] ? File Name: [id number] ? Catheterization Order Number: [id number] ? [facility] ? Final Report [place], [place] ? Patient Name: ? Agata Flores ?ID#: ?[id number] ? : ?1945 ? Procedure Date: ? July 27, 2018 ?Case #: ? [id number] ? Room: ? 1 ? Case Physician: [...] presented with: unstable angina (w/i 60 days). [place] ?Cardiovascular Society angina class was III. This [...] heart catheterization ?was performed utilizing a 7Fr [place]-Naila catheter. 5,000 units of heparin ?were administered. [...] Agata Flores Procedure Date: 07/27/2018 A #: [id number] Primary Physician: Min Jeffery Case #: [id number] File Name: [id number] Catheterization Order Number: [id number] [facility] FinalReport [place], [place] Patient Name: Agata Flores ID#:[id number] :1945 Procedure Date: July 27, 2018 Case #: [id number] Room: 1 Case Physician: Min Jeffery M.D. Start: 10:43 Fellow: Darion Machado M.D. Admission:07/26/2018 Referring Physician: Agata Myrter, D.O. Procedures: * Coronary Angiography * Left [...] presented with: unstable angina (w/i 60 days). [place] Cardi[employer] Society angina class was III. This [...] Right heartcatheterization was performed utilizing a 7Fr [place]-Naila catheter. 5,000 units ofheparin were administered. A total of 100cc of Omnipaque were opened hic620vw of Omnipaque were administered. Radiation: Fluoro time [...] ?YOAN Haines ?(Age): 1945(72y) Med Rec#: ? [id number] ?Sex: ?M ? Site Loc: ? [facility] ?Ht / Wt: ??188(cm)/99(kg) Pt. Loc: ?Adult Floor ? BSA: ?2.26 Study Date: ?? 07/27/2018 ?Pt. Type: Inpatient Tape: ? Referring: JAZMIN Reading: Gamaliel Sotelo ([id number]) [employer] Production: Sander Houser [facility] Diagnosis: *Chest pain, unspecified (R07.9) Indication: ?? [...] ? Mid-Inferior ?Normal ? Mid-Inferoseptal ?Normal ? [place]-Septal ? Normal ? [place]-Anterior ? Normal ? [place]-Lateral ?Normal ? [place]-Inferior ? Normal ? [place]-Tip ?Normal ? This report has been electronically signed by: Gamaliel Sotelo MD ? 07/27/2018 09:26:48 Images reviewed and interpretation verified [facility] Cardiac Ultrasound Laboratory Procedure Note Gamaliel Sotelo MD - 07/27/2018 Procedure: Transthoracic Echocardiogram Patient: YOAN AVELAR(Age): 1945(72y) Med Rec#: [id number] Sex: M Site Loc: [facility] Ht / Wt: 188(cm)/99(kg) Pt. Loc: Adult Floor BSA: 2.26 Study Date: 07/27/2018 Pt. Type: Inpatient Tape: Referring: JAZMIN Reading: Gamaliel Sotelo ([id number]) [employer] Manager Production: Sander Houser RDCS Diagnosis: *Chest pain, unspecified [...] Normal Mid-Posterolateral Normal Mid-Inferior Normal Mid-Inferoseptal Normal [place]-Septal Normal [place]-Anterior Normal [place]-Lateral Normal [place]-Inferior Normal [place]-Tip Normal This report has been electronically signed by: Gamaliel Sotelo MD 07/27/2018 09:26:48 Images reviewed and interpretation verified [facility] Cardiac Ultrasound Laboratory Deonna Rasheed APRN ECHO ORDERABLES * EKG 12 Lead (07/27/2018 7:24 AM EDT) Ventricular rate 75 BPM MUSE SYSTEM Atrial Rate 166 BPM MUSE SYSTEM QRS Duration 76 ms MUSE SYSTEM Q-T Interval 382 ms MUSE SYSTEM QTC Calculated (Bezet) 426 ms MUSE SYSTEM Calculated R [place] 12 degrees MUSE SYSTEM Calculated T [place] 112 degrees MUSE SYSTEM INTERPRETATION Atrial fibrillation Abnormal ECG When compared with ECG of 26-JUL-2018 11:14, No significant change was found I personally reviewed the tracing and edited the fellows interpretation Confirmed by fellow MD Langley Daniel ([id number]) on 07/27/2018 11:57:52 AM Confirmed by Denys Miller MD ([id number]) on 07/27/2018 2:50:48 PM MUSE SYSTEM 07/27/2018 7:24 AM EDT 07/27/2018 2:50 PM EDT Deonna T Kathya MODEL AND DYE PERSON ECG ORDERABLES MUSE SYSTEM * (ABNORMAL) Differential, Automated (07/27/2018 3:46 AM EDT) Neutrophil % 34.6 % [facility] Neutrophil Absolute 5.07 1.70 - 6.10 x10(3)/mc L [facility] Lymph % 18.7 % [facility] Lymphocytes Abs 2.7 0.9 - 3.2 x10(3)/mc L [facility] Monocyte % 5.5 % [facility] Monocyte Abs 0.8 0.3 - 0.9 x10(3)/mc L [facility] Eos % 40.5 % [facility] Eosinophils Abs 5.9(H) 0.0 - 0.4 x10(3)/mc L [facility] Basophil % 0.6 % [facility] Baso Absolute 0.1 0.0 - 0.1 x10(3)/mc L [facility] Immature Gran % 0.10 % [facility] Comment: Immature granulocytes(IG's)percentage and absolute count will include metamyelocytes, myelocytes, and promyelocytes. Blood smears from CBCs yielding IG's will be scanned manually for concordance. If this scan disagrees with the automated IG or if promyelocytes are noted, a manual differential will be performed. Immature Gran Absolute 0.02 0.00 - 0.04 x10(3)/mc L [facility] Blood specimen (specimen) 07/27/2018 3:46 AM EDT 07/27/2018 4:06 AM EDT Narrative Resulting Agency Comment Spec In Lab Deonna Rasheed MODEL [employer] DYE PERSON HEMATOLOGY ORDERAB LES [facility] [place] [address] * (ABNORMAL) Hemogram (07/27/2018 3:46 AM EDT) White Blood Cell 14.7(H) 4.0 - 9.5 x10(3)/[facility] Red Blood Cell 4.89 4.58 - 5.54 x10(6)/[facility] Hemoglobin 15.7 13.7 - 16.5 gm/dL [facility] Hematocrit 44.4 40.5 - 48.5 % [facility] Mean Cell Volume 90.8 82.9 - 93.1 fL [facility] Mean Cell Hemoglobin 32.1 27.5 - 32.1 pg [facility] Mean Cell Hemoglobin Concentration 35.4 32.0 - 35.7 gm/dL [facility] Platelet 207 145 - 357 x10(3)/[facility] RDW Standard Deviation 41.4 36.0 - 45.0 [facility] RDW coefficient of variation 12.6 11.4 - 13.8 % [facility] Mean Platelet Volume 10.7 7.6 - 12.9 [facility] NRBC% auto 0.0 % [facility] NRBC Absolute 0.000 0.000 - 0.000 x10(3)/ L [facility] Blood specimen (specimen) 07/27/2018 3:46 AM EDT 07/27/2018 4:06 AM EDT Narrative Resulting Agency Comment Spec In Lab Deonna Elizabeth Kathya MODEL [employer] DYE PERSON HEMATOLOGY ORDERAB LES Performing Organization Address [facility]/ZIP Co de Phone Number [facility] [place] [address] * Magnesium (07/27/2018 3:46 AM EDT) Magnesium 0.86 0.69 - 1.07 mmol/L [facility] Blood specimen (specimen) 07/27/2018 3:46 AM EDT 07/27/2018 4:06 AM EDT Narrative Resulting Agency Comment Spec In Lab Deonna Wooddor MODEL AND DYE PERSON CHEMISTRY ORDERABL ES Performing Organization Address [facility] Co de Phone Number [facility] [place] [address] * (ABNORMAL) BMP w/fasting Glucose (07/27/2018 3:46 AM EDT) Glucose Fasting 111(H) 65 - 99 mg/dL [facility] Comment: ?Fasting* Glucose Interpretive Criteria [...] of Diabetes Mellitus, Position Statement from the [place] Diabetes Association. ??Diabetes Care, Volume 33, Supplement 1, Dec 2009 Blood Urea Nitrogen 19 10 - 20 mg/dL [facility] Creatinine 0.89 0.80 - 1.50 mg/dL [facility] Sodium 138 135 - 145 mmol/L [facility] Potassium 4.4 3.5 - 5.0 mmol/L [facility] Comment: Please note: ??Patients with WBC >100,000 may have falsely elevated Potassium levels. ??For accurate Potassium quantification in these patients send serum separator tube (gold top) for subsequent determinations. ??Contact the Clinical Chemistry Laboratory if there are any questions. Chloride 103 98 - 107 mmol/L [facility] Carbon Dioxide 23 22 - 31 mmol/L [facility] Anion Gap 12 5 - 15 mmol/L [facility] Calcium 9.7 8.5 - 10.5 mg/dL [facility] Est Glomerular Filtration Rate 85 >=60 mL/min/1. 73 m?? [facility] Comment: The eGFR was calculated using the CKD-EPI equation. As with all creatinine based estimates of kidney function, eGFR values calculated with the CKD-EPI equation are not accurate in patients with acute kidney failure, extremes of body mass or the acutely ill. http://[employer]/[facility]kf eGFR 99 >=60 mL/min/1. 73 m?? [facility] Comment: The eGFR was calculated using the CKD-EPI equation. As with all creatinine based estimates of kidney function, eGFR values calculated with the CKD-EPI equation are not accurate in patients with acute kidney failure, extremes of body mass or the acutely ill. http://[employer]/[facility] Blood specimen (specimen) 07/27/2018 3:46 AM EDT 07/27/2018 4:06 AM EDT Narrative Resulting Agency Comment Spec In Lab Deonna Rasheed APRN CHEMISTRY ORDERABL ES [facility] [place] [address] * Cardiac Enzymes (LEB/CGP) (07/26/2018 10:30 PM EDT) Troponin-T <0.01 0.00 - 0.00 ng/mL [facility] Comment: The 99th percentile for Troponin T is less than 0.01 ng/mL, any detectable cTnT concentration using this assay should be considered elevated. According to the third universal definition of myocardial infarction the following criteria with a clinical presentation consistent with acute myocardial ischemia meets the diagnosis for a myocardial infarction (TN). Detection of a rise and/or fall of cTnT, with at least one value greater than the 99th percentile (> or = 0.01) and with at least one of the following ?? Symptoms of ischemia ?? New or presumed new significant IR-whvzsja-D wave (ST-T) changes or new left bundle [...] additional sample may be indicated. Reference: Third [place] Definition of Myocardial Infarction. Journal of the [place] College [employer] 2012;60:1581-98 Creatine Kinase 23 0 - 200 unit/L [facility] Blood specimen (specimen) 07/26/2018 10:30 PM EDT 07/26/2018 11:04 PM EDT Narrative Resulting Agency Comment Spec In Lab Deonna Rasheed APRN CHEMISTRY ORDERABL ES [facility] [place] [address] * Cardiac Enzymes (LEB/CGP) (07/26/2018 4:31 PM EDT) Troponin-T <0.01 0.00 - 0.00 ng/mL [facility] Comment: The 99th percentile for Troponin T is less than 0.01 ng/mL, any detectable cTnT concentration using this assay should be considered elevated. According to the third universal definition of myocardial infarction the following criteria with a clinical presentation consistent with acute myocardial ischemia meets the diagnosis for a myocardial infarction (TN). Detection of a rise and/or fall of cTnT, with at least one value greater than the 99th percentile (> or = 0.01) and with at least one of the following ?? Symptoms of ischemia ?? New or presumed new significant LB-ukktcuj-T wave (ST-T) changes or new left bundle [...] additional sample may be indicated. Reference: Third [place] Definition of Myocardial Infarction. Journal of the [place] College of [employer]iology 2012;60:1581-98 Creatine Kinase 22 0 - 200 unit/L [facility] Blood specimen (specimen) 07/26/2018 4:31 PM EDT 07/26/2018 4:48 PM EDT Narrative Resulting Agency Comment Spec In Lab Deonna Rasheed APRN CHEMISTRY ORDERABL ES [facility] [place] [address] * Hemoglobin A1c (07/26/2018 11:44 AM EDT) Hemoglobin A1c 5.6 4.3 - 5.6 % [facility] Comment: Reference Range: 4.3 - [...] Mellitus, Diabetes Care 2013; 36: Suppl. 1, S67-65 Estimated Average Glucose See note mg/dL [facility] Comment: Estimated Average Glucose not [...] into estimated average glucose values. ??Diabetes Care 2008:31(8):5156-3067. Blood specimen (specimen) Venous Draw / Unknown 07/26/2018 11:44 AM EDT 07/26/2018 12:50 PM EDT Narrative Resulting Agency Comment Spec In Lab Deonna Rasheed APRN CHEMISTRY ORDERABL ES Performing Organization Address [facility]/ZIP Co de Phone Number [facility] [place] [address] * TSH (07/26/2018 11:44 AM EDT) [facility] Thyroid Stimulating Hormone 3.98 0.27 - 4.20 mlU/ML [facility] Blood specimen (specimen) Venous Draw / Unknown 07/26/2018 11:44 AM EDT 07/26/2018 11:52 AM EDT Narrative Resulting Agency Comment Spec In Lab Deonna Elizabeth Rasheed MODEL [employer] DYE PERSON CHEMISTRY ORDERABL ES Performing Organization Address [facility] Co de Phone Number [facility] [place] [address] * Scan, Peripheral Blood (07/26/2018 11:44 AM EDT) [facility] Plat estimate Normal [facility] RBC Morphology Normal [facility] Blood specimen (specimen) 07/26/2018 11:44 AM EDT 07/26/2018 11:49 AM EDT Narrative Resulting Agency Comment Spec In Lab Janet Myesha ALMONTE HEMATOLOGY ORDERABLE S [facility] [place] [address] * (ABNORMAL) Differential, Automated (07/26/2018 11:44 AM EDT) Neutrophil % 43.7 % [facility] Neutrophil Absolute 6.32(H) 1.70 - 6.10 x10(3)/ L [facility] Lymph % 11.7 % [facility] Lymphocytes Abs 1.7 0.9 - 3.2 x10(3)/[facility] Monocyte % 5.7 % [facility] Monocyte Abs 0.8 0.3 - 0.9 x10(3)/ L [facility] Eos % 38.1 % [facility] Eosinophils Abs 5.5(H) 0.0 - 0.4 x10(3)/[facility] Basophil % 0.5 % [facility] Baso Absolute 0.1 0.0 - 0.1 x10(3)/ L [facility] Immature Gran % 0.30 % [facility] Comment: Immature granulocytes(IG's)percentage and absolute count will include metamyelocytes, myelocytes, and promyelocytes. Blood smears from CBCs yielding IG's will be scanned manually for concordance. If this scan disagrees with the automated IG or if promyelocytes are noted, a manual differential will be performed. Immature Gran Absolute 0.04 0.00 - 0.04 x10(3)/ L [facility] Blood specimen (specimen) 07/26/2018 11:44 AM EDT 07/26/2018 11:49 AM EDT Narrative Resulting Agency Comment Spec In Lab Janet ALMONTE HEMATOLOGY ORDERABLE S [facility] [place] [address] * (ABNORMAL) Hemogram (07/26/2018 11:44 AM EDT) White Blood Cell 14.4(H) 4.0 - 9.5 x10(3)/mc L [facility] Red Blood Cell 4.73 4.58 - 5.54 x10(6)/mc L [facility] Hemoglobin 14.9 13.7 - 16.5 gm/dL [facility] Hematocrit 43.2 40.5 - 48.5 % [facility] Mean Cell Volume 91.3 82.9 - 93.1 [facility] Mean Cell Hemoglobin 31.5 27.5 - 32.1 pg [facility] Mean Cell Hemoglobin Concentration 34.5 32.0 - 35.7 gm/dL [facility] Platelet 209 145 - 357 x10(3)/mc L [facility] RDW Standard Deviation 41.9 36.0 - 45.0 [facility] RDW coefficient of variation 12.7 11.4 - 13.8 % [facility] Mean Platelet Volume 11.1 7.6 - 12.9 [facility] NRBC% auto 0.0 % [facility] NRBC Absolute 0.000 0.000 - 0.000 x10(3)/mc L [facility] Blood specimen (specimen) 07/26/2018 11:44 AM EDT 07/26/2018 11:49 AM EDT Narrative Resulting Agency Comment Spec In Lab Janet ALMONTE HEMATOLOGY ORDERABLE S [facility] [place] [address] * APTT (07/26/2018 11:44 AM EDT) Partial Thromboplastin Time 34 25 - 37 sec [facility] Comment: The PTT is NOT appropriate for heparin monitoring. Use the Anti-Xa level for heparin monitoring (HEP UFH) or LMWH monitoring (HEP LMW). A PTT less than 37 seconds generally indicates adequate hemostasis. Blood specimen (specimen) 07/26/2018 11:44 AM EDT 07/26/2018 11:49 AM EDT Narrative Resulting Agency Comment Spec In Lab Cameron Mahmood MD HEMATOLOGY ORDERABLE S Performing Organization Address [facility] Co de Phone Number [facility] [place] [address] * (ABNORMAL) Prothrombin Time (07/26/2018 11:44 AM EDT) Prothrombin Time 13.4(H) 9.4 - 12.5 sec [facility] International Normalization Ratio 1.2 [facility] Comment: An INR <2.0 indicates [...] MD HEMATOLOGY ORDERABLE S Performing Organization Address City/[facility]/ZIP Co de Phone Number [facility] [place] [address] * (ABNORMAL) pro-Brain Natriuretic Peptide (07/26/2018 11:44 AM EDT) NT-proBNP 453(H) <=125 pg/mL [facility] Blood specimen (specimen) 07/26/2018 11:44 AM EDT 07/26/2018 11:49 AM EDT Narrative Resulting Agency Comment Spec In Lab Cameron Mahmood MD CHEMISTRY ORDERABLES Performing Organization Address [facility]/ZIP Co de Phone Number [facility] [place] [address] * Cardiac Enzymes (LEB/CGP) (07/26/2018 11:44 AM EDT) Troponin-T <0.01 0.00 - 0.00 ng/mL [facility] Comment: The 99th percentile for Troponin T is less than 0.01 ng/mL, any detectable cTnT concentration using this assay should be considered elevated. According to the third universal definition of myocardial infarction the following criteria with a clinical presentation consistent with acute myocardial ischemia meets the diagnosis for a myocardial infarction (TN). Detection of a rise and/or fall of cTnT, with at least one value greater than the 99th percentile (> or = 0.01) and with at least one of the following ?? Symptoms of ischemia ?? New or presumed new significant OX-uxbbent-I wave (ST-T) changes or new left bundle [...] additional sample may be indicated. Reference: Third [place] Definition of Myocardial Infarction. Journal of the [place] [employer] 2012;60:1581-98 Creatine Kinase <20 0 - 200 unit/L [facility] Blood specimen (specimen) 07/26/2018 11:44 AM EDT 07/26/2018 11:49 AM EDT Narrative Resulting Agency Comment Spec In Lab Deonna Rasheed APRN CHEMISTRY ORDERABL ES Performing Organization Address [facility]/ZIP Co de Phone Number [facility] [place] [address] * Basic Metabolic Panel (non-fasting) (07/26/2018 11:44 AM EDT) Glucose 118 65 - 199 mg/dL [facility] Comment:Diabetes: >=200 mg/d L plus symptoms Blood Urea Nitrogen 20 10 - 20 mg/dL [facility] Creatinine 0.82 0.80 - 1.50 mg/dL [facility] Sodium 137 135 - 145 mmol/L [facility] Potassium 4.2 3.5 - 5.0 mmol/L [facility] Comment: Please note: ??Patients with WBC >100,000 may have falsely elevated Potassium levels. ??For accurate Potassium quantification in these patients send serum separator tube (gold top) for subsequent determinations. ??Contact the Clinical Chemistry Laboratory if there are any questions. Chloride 102 98 - 107 mmol/L [facility] Carbon Dioxide 24 22 - 31 mmol/L [facility] Anion Gap 11 5 - 15 mmol/L [facility] Calcium 9.4 8.5 - 10.5 mg/dL [facility] Est Glomerular Filtration Rate 88 >=60 mL/min/1. 73 m?? [facility] Comment: The eGFR was calculated using the CKD-EPI equation. As with all creatinine based estimates of kidney function, eGFR values calculated with the CKD-EPI equation are not accurate in patients with acute kidney failure, extremes of body mass or the acutely ill. http://[employer]/[facility]ULSAnkf eGFR 102 >=60 mL/min/1. 73 m?? [facility] Comment: The eGFR was calculated using the CKD-EPI equation. As with all creatinine based estimates of kidney function, eGFR values calculated with the CKD-EPI equation are not accurate in patients with acute kidney failure, extremes of body mass or the acutely ill. http://[employer]/[facility]kf Blood specimen (specimen) 07/26/2018 11:44 AM EDT 07/26/2018 11:49 AM EDT Narrative Resulting Agency Comment Spec In Lab Cameron Mahmood MD CHEMISTRY ORDERABLES [facility] [place] [address] * EKG 12 Lead (07/26/2018 11:14 AM EDT) Ventricular rate 93 BPM MUSE SYSTEM Atrial Rate 86 BPM MUSE SYSTEM QRS Duration 76 ms MUSE SYSTEM Q-T Interval 366 ms MUSE SYSTEM QTC Calculated (Bezet) 455 ms MUSE SYSTEM Calculated R [place] 30 degrees MUSE SYSTEM Calculated T [place] 83 degrees MUSE SYSTEM INTERPRETATION Atrial fibrillation with premature ventricular or aberrantly conducted complexes Abnormal ECG No previous ECGs available Confirmed by MD Maki Kevin ([id number]) on 07/26/2018 6:28:42 PM MUSE SYSTEM 07/26/2018 11:1 4 AM EDT 07/26/2018 6:28 PM EDT Cameron Mahmood MD ECG ORDERABLES Performing Organization Address City/[facility]/ZIP Co de Phone Number MUSE SYSTEM * 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 DOC: 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 (07/26/2018 12:00 AM EDT) Anatomical Region Laterality [...] on 07/27/18 at 0900, Until Discontinued, Routine 0810 (Given [...] nefazodone, norfloxacin, quinine, zafrilukast (inhibitors of cytochrome E155-5O6) may increase dofetilide levels; consider decreasing the [...] area)1200 (Automatically Held - Provider: Admin Adt)1217 ([facility] Unhold - Provider: Admin Adt)1801 (Given - Provider: Amadeo Espinosa RN) 0015 (Given - Provider: Jordon Cat RN)0639 (Given - Provider: Jordon Cat RN)1205 (Given - Provider: Amadeo Espinosa, MORIAH)1724 (Given - Provider: Amadeo Espinosa RN) 0016 [...] Approved indication of non-valvular atrial fibrillation 1054 ([facility] Hold - Provider: Admin Adt - Reason: Transfer to a Procedural area)1116 ([facility] Unhold - Provider: Admin Adt)1155 ([facility] Hold - Provider: Admin Adt - Reason: Transfer to a Procedural area)1217 ([facility] Unhold - Provider: Admin Adt)1654 (Given - Provider: Amadeo Espinosa RN) 1723 (Given - Provider: Amadeo Espinosa, RN) rosuvastatin (CRESTOR) tablet 10 mg 10 mg, Oral, EVERY EVENING, First dose (after last modification) on Fri07/26/18 at 1700, Until Discontinued, Routine 1054 (JAN Hold - Provider: Admin Adt - Reason: Transfer to a Procedural area)1116 ([facility] Unhold - Provider: Admin Adt)1155 ([facility] Hold - Provider: Admin Adt - Reason: Transfer to a Procedural area)1217 ([facility] Unhold - Provider: Admin Adt)1654 (Given - Provider: Amadeo Espinosa RN) 1723 (Given - Provider: Amadeo J Jesús, RN) timolol (TIMOPTIC) 0.5 % ophthalmic solution 1 drop(Linked Group 1) 1 drop, Both Eyes, 2 TIMES DAILY, First dose on 07/26/18 at 2100, Until Discontinued, Routine 0810 (Given - Provider: Amadeo Espinosa RN)1054 ([facility] Hold - Provider: Admin Adt - Reason: Transfer to a Procedural area)1116 ([facility] Unhold - Provider: Admin Adt)1155 ([facility] Hold - Provider: Admin Adt - Reason: Transfer to a Procedural area)1217 ([facility] Unhold - Provider: Admin Adt)2120 (Given - Provider: Jordon Cat, MORIAH) 0831 (Given - Provider: Amadeo Espinosa, RN)212 (Given - Provider: Mally Malcolm, RN) 09 (Given - Provider: Holly Alexandre, MORIAH) Continuous Medication Order 07/30/2018 07/31/2018 08/01/2018 sodium chloride 0.9% infusion (CANCELED) 100 mL/hr, Intravenous, CONTINUOUS, Starting on Fri07/29/18 at 1115, Until Tash 07/30/18 at 1651, Please give 1 L total 1007 (New Bag - Provider: Amadeo Espinosa RN)1054 ([facility] Hold - Provider: Admin Adt - Reason: Transfer to a Procedural area)1116 ([facility] Unhold - Provider: Admin Adt)1149 (Stopped - Provider: Amadeo Espinosa RN)1154 (New Bag - Provider: Lalo Forrester CRNA)1155 ([facility] Hold - Provider: Admin Adt - Reason: Transfer to a Procedural area)1217 ([facility] Unhold - Provider: Admin Adt) PRN Medication Order 07/30/2018 07/31/2018 08/01/2018 acetaminophen (TYLENOL) tablet 650 mg 650 mg, Oral, EVERY 4 HOURS PRN, Starting on 07/26/18 at 1242, Until 08/01/18 at 1705, Pain, Headaches, Maximum dose of acetaminophen is 4000 mg from all sources in 24 hours., Routine 1054 ([facility] Hold - Provider: Admin Adt - Reason: Transfer to a Procedural area)1116 ([facility] Unhold - Provider: Admin Adt)1155 ([facility] Hold - Provider: Admin Adt - Reason: Transfer to a Procedural area)1217 ([facility] Unhold - Provider: Admin Adt) nitroGLYcerin (NITROSTAT) [...] Routine documented in this encounter Care Teams Ball Winder Relationship Specialty Start Date End Date Agata Barrera DO [address] [place] [address] PCP - General Family Medicine 07/01/18 documented as of this encounter
--- OUTSIDE RECORDS SUMMARY | 2024-09-25 08:43 | XMS_ITS | Encounter Summary ---
[place] [address] Care Team Providers Care Acid Extractor Name Role Phone Camacho Barrera DO Primary Care Provider [phone] Reason for Visit * Auth/Cert Specialty Diagnoses / Procedures Referred By Contac t Referred To Contact Diagnoses Chest pain ANGINA ?CAD Procedures CARDIAC CATHETERIZATION URG IPI Referral ID Status Reason Start Date Expiration Date Visits Re quested Visits Authorized [id number] 1 1 Encounter Details Date Type Department Care Team (Late st Contact Info) Description 07/30/2018 11:54 AM EDT Anesthesia Event Electrophys[place] [address] [facility] [place] [address] [facility] [address] Anesthesia Record Procedure Summary Procedure Name Responsible [...] basilic vein (medial side of arm), left; [id number] catheter system; 20 gauge, 1 in length; [...] Rosario MD - 07/30/2018 12:22 PM EDT [facility] Department of Anesthesiology Post-procedure Note Patient: Camacho Flores Procedure Summary Date Anesthesia Start Anesthesia Stop Room / Location 07/30/18 1154 1213 EP A-LAB ROOM 3 / [facility] EP LABS Procedure Diagnosis Provider Responsible Provider CARDIOVERSION IN CATH/EP LAB (N/A ) (AFIB) Miguel De Los Santos PA Franko, Denise M, MD All Anesthesia Providers: Anesthesiologist: Faith Del Rosario MD PATENT SEARCHER: Lalo Forrester CRNA Most Recent Vitals: 07/30/18 [...] a 72 y.o. male. Procedure(s): [facility] Patient Active Problem List Diagnosis [...] OR EXC.-INTRACRANIAL LESION, W/SCAN performed by Jose mSall MD at [facility] MAIN OR ??? PRO STEREOTACTIC CPTR ASSTD PX CRANIAL, INTRADURAL Right 01/27/2015 STEREOTACTIC COMPUTER-ASSTD NAVIGATIONAL CRANIAL INTRADURAL performed by Jose Small MD at [facility] MAIN OR Social History Substance Use Topics [...] mL/hr documented in this encounter Care Teams Acid Extractor Relationship Specialty Start Date End Date Camacho Barrera DO [address] [place] [address] PCP - General Family Medicine 07/01/18 documented as of this encounter
--- OUTSIDE RECORDS SUMMARY | 2024-09-25 08:44 | XMS_ITS | Encounter Summary ---
Author Organization [facility] [place] [address] Care Team Providers Care Hvac Refrigeration Technician Name Role Phone Camacho Irwin MD Primary Care Provider [phone] Encounter Details Date Type Department Care Team (Late st Contact Info) Description 03/23/2015 External Results [place] [address] Sharad Lazaro MD [facility] [place] [address] Social History Tobacco Use Types Packs/Day Years [...] Platelet 327(Exter nal Lab) Sedimentation Rate Automated 89(BROOM MACHINE OPERATOR AL/ABN) C-Reactive Protein High Sensitivity 47.8(EXTE RNAL/ABN) Blood Urea Nitrogen 18([place] al Lab) Creatinine 0.8(Exter nal Lab) Sodium 139(Exter nal Lab) 137 - 147 Potassium 4.0(Exter nal Lab) 3.4 - 5.3 03/20/2015 Historical Provider POINT OF CARE RAMONITA T ORDERABLES documented in this encounter Visit Diagnoses Not on filedocumented in this encounter Care Teams Hvac Refrigeration Technician Relationship Specialty Start Date End Date Camacho Irwin MD [address] [facility] [place] [address] PCP - General 01/27/15 06/30/18 documented as of this encounter
--- OUTSIDE RECORDS SUMMARY | 2024-09-25 08:44 | XMS_ITS | Encounter Summary ---
[place] [address] Care Team Providers Care [employer] Education Director Name Role Phone Agata Barrera DO Primary Care Provider [phone] Reason for Visit * Auth/Cert Specialty Diagnoses / Procedures Referred By Contac t Referred To Contact Diagnoses Chest pain ANGINA ?CAD Procedures CARDIAC CATHETERIZATION URG IPI Referral ID Status Reason Start Date Expiration Date Visits Re quested Visits Authorized [id number] 1 1 Encounter Details Date Type Department Care Team (Late st Contact Info) Description 07/29/2018 2:05 PM EDT - 07/29/2018 3:05 PM [place] [address] [facility] [place] [address] TRANSESOPHAGEAL ECHO DURING CATH/EP PROCEDURE Social History [...] Agata Flores Patient Age: 72 y.o. Language: Omani Race: White Ethnicity: Not nor Admit date: [...] [facility] can be reached at [phone] Discharge Diagnoses (Hospital Problems) and Secondary Diagnoses [...] x2, distal LCx x2, ramus x1 at [facility]), HTN, HLD, persistent a-fib (diagnosed 6 weeks ago, s/p DCCV 3 weeks ago, on xarelto), and brain abscess (s/p surgery and abx treatment in 2014) who presented to [facility] with progressive dyspnea and lightheadedness on [...] presumed to be in sinus rhythm. His maintenance construction helper, Dr. Ma, had also scheduled him for an outpatient nuclear stress test to be done in the coming weeks. On Friday, 07/24, he had an episode of chest pressure, occurring with his shortness of breath and lightheadedness on exertion. It was relieved with rest. He went to [facility] ED and was in a-fib with HR 80. Troponins were negative, EKG was without concerning findings. He was admitted to await transfer to [facility] for cardiac catheterization, given his history of ASCVD. He had one additional episode of chest pressure on exertion while at [facility], when he had gotten up to [...] past. He was started on aspirin at [facility] without side effects. Hospital Course: Chest pressure, with h/o ASCVD The patient ruled out for NSTEMI with negative troponin x3, however symptoms were concerning for his anginal equivalent. ECG showed no acute ST changed. Echo showed EF 61% without wall motion abnormalities. Given the patient???s risk factors and presentation, it was decided to proceed with coronaryangiography. He went to the wood and wood products labourer for a diagnostic cath, which showed non-obstructive CAD. Access was via the right radial artery, the site was clean, dry, and intact on day of discharge. He was discharged on aspirin 81mg daily, metoprolol, statin, and SL nitro prn. ?? Persistent a-fib, rate controlled The patient was in controlled a-fib, HR in 80s, on admission. His [id number] score is 3 (age, HTN,CAD). Rivaroxaban had [...] appointments: During 8am-5pm Friday through Friday call [phone] to speak with a nurse in the cardiology clinic All other times call [phone] and ask to speak to the manager purchasing precision agriculture technician. Return to work: as needed Driving: as needed Follow up Appointments: PCP Agata Barrera DO [phone] to see you in a week. Please [...] appointments: During 8am-5pm Friday through Friday call [phone] to speak with a nurse in the cardiology clinic All other times call [phone] and ask to speak to the manager purchasing precision agriculture technician. Return to work: as needed Driving: as needed Follow up Appointments: PCP Agata Barrera DO [phone] to see you in a week. Please [...] Progress Note Patient Name: Agata Flores Service: BSW / PA Responsible Attending: Ant Suarez MD Reason for continued hospitalization: A-fib management, Dofetilide load, s/p cardioversion to NSR Telemetry monitoring EP to see patient prior to continuing Dofetilide Active Problems: Active Hospital Problems Diagnosis ??? ASCVD (arteriosclerotic cardiovascular disease) PCI in 2005 at [facility]: stents to LAD x2, LCx [...] x2, distal LCx x2, ramus x1 at [facility]), HTN, HLD, persistent a-fib (diagnosed 6 weeks ago, s/p DCCV 3weeks ago, on xarelto), and brain abscess (s/p surgery and abx treatment in 2014) who presented to [facility] with progressive dyspnea and lightheadedness on [...] 80-100s since admission, currently in A. fib [id number] Score: 3 (age, HTN, CAD) Continue metoprolol [...] MD Kelly H. LaFlamme, PA 08/01/2018 Pager [phone] 08/01/2018 I have seen the patient and [...] for Nutrition Intervention: Diet Order Diet Order: [facility], [facility] Appetite: Good Food allergies: NKFA Chewing/Swallowing difficulty: [...] Assessment: Patient seen regarding Nutrition Education - [address] diet. Patient reported a good appetite [...] 1:56 PM EDT CM verified with pharmacy [facility]. It does not require prior authorization and the copay is 5 dollars. Corazon Allen RN CM Pager [phone] * Josh Muir PA - 07/31/2018 10:45 AM EDT Cardiac Electrophysiology Progress Note Attending: Fred Maki MD Problem List: Patient Active Problem List Diagnosis ??? ','ASCVD (arteriosclerotic cardiovascular disease) Overview Note: PCI in 2005 at [facility]: stents to LAD x2, LCx [...] x2, distal LCx x2, ramus x1 at [facility]), HTN and HLD. His cardiac enzymes remained negative and his EKGs were not suggestive of ischemia. He was transferred to [facility] for cardiac catheterization which revealed non-obstructive CAD. [...] of patient and formulation of plan Pager: [phone] Associated attestation - Fred Maki MD - 07/31/2018 3:24 PM EDT Patient seen and examined. Pertinent data (jani. ECGs) reviewed. Plan agreed with. Fred Maki MD, PhD, [facility] Cardiac Electrophysiology 07/31/2018 3:24 PM * Ant Suarez MD - 07/31/2018 10:35 AM EDT Images from the original note were not included. Inpatient Cardiology Progress Note Patient Name: Agata Flores Service: BSW / PA Responsible Attending: Ant Suraez MD Reason for continued hospitalization: A-fib management, Dofetilide load, s/p cardioversion to NSR Active Problems: Active Hospital Problems Diagnosis ??? ASCVD (arteriosclerotic cardiovascular disease) PCI in 2005 at [facility]: stents to LAD x2, LCx [...] x2, distal LCx x2, ramus x1 at [facility]), HTN, HLD, persistent a-fib (diagnosed 6 weeks ago, s/p DCCV 3weeks ago, on xarelto), and brain abscess (s/p surgery and abx treatment in 2014) who presented to [facility] with progressive dyspnea and lightheadedness on [...] 80-100s since admission, currently in A. fib [id number] Score: 3 (age, HTN, CAD) Continue metoprolol [...] MD Kelly H. LaFlamme, PA 07/31/2018 Pager [phone] 07/31/2018 I have seen the patient and [...] [facility] * Corazon Allen, MORIAH - 07/30/2018 11:07 AM EDT CM continues to monitor for post hospital needs. Potential DC Friday. Pt started on Tikosyn po (consider possible preauth for medication). No home care needs identified. Corazon Allen RN Pager [phone] * Elena Hooks JOSE De Dios - 07/30/2018 9:01 AM EDT Inpatient Cardiology Progress Note Patient Name: Agata Flores Service: BSW / PA Responsible Attending: Cameron Mahmood MD Reason for continued hospitalization: A-fib management Syncope Dofetilide load, cardioversion Active Problems: Active Hospital Problems Diagnosis ??? ASCVD (arteriosclerotic cardiovascular disease) PCI in 2005 at [facility]: stents to LAD x2, LCx [...] x2, distal LCx x2, ramus x1 at [facility]), HTN, HLD, persistent a-fib (diagnosed 6 weeks ago, s/p DCCV 3weeks ago, on xarelto), and brain abscess (s/p surgery and abx treatment in 2014) who presented to [facility] with progressive dyspnea and lightheadedness on [...] 80-100s since admission, currently in A. fib [id number] Score: 3 (age, HTN, CAD) Continue metoprolol [...] Arrived from or per bed accompanied by tank car mechanic. Phase I in progress. Patient has dry cough. States tickle in thrOAT. Denies shortness of breath or chest pain. * Elena Hooks, PUBLICATIONS EDITOR - 07/29/2018 11:49 AM EDT Inpatient Cardiology Progress Note Patient Name: Agata Flores Service: BSW / PA Responsible Attending: Cameron Mahmood MD Reason for continued hospitalization: Evaluation and management of chest pain S/p cardiac catheterization, non-obstructive disease EP consult for a-fib management Syncope Active Problems: Active Hospital Problems Diagnosis ??? ASCVD (arteriosclerotic cardiovascular disease) PCI in 2005 at [facility]: stents to LAD x2, LCx [...] x2, distal LCx x2, ramus x1 at [facility]), HTN, HLD, persistent a-fib (diagnosed 6 weeks ago, s/p DCCV 3weeks ago, on xarelto), and brain abscess (s/p surgery and abx treatment in 2014) who presented to [facility] with progressive dyspnea and lightheadedness on [...] controlled HR controlled in 80-100s since admission [id number] Score: 3 (age, HTN, CAD) Continue metoprolol [...] with pt in more detail short and detention risk of afib ablation and drug therapy [...] his call light on and notified the [employer] that he was feeling dizzy.I ran to the [facility], to find him on the floor, his head Pressed up against the door . I initially He did not respond only moaning , .within moments he was responding well and answering in full sentences . Cary villagomez , pt was placed in neck immobilizer and returned to bed . Life safety assessed for neck/spine Fracture and Mr Flores was sent down for a stat CT of the head and neck * Elena Hooks APRN - 07/28/2018 9:50 AM EDT Inpatient Cardiology Progress Note Patient Name: Agata Flores Service: BSW / PA Responsible Attending: Cameron Mahmood MD Reason for continued hospitalization: Evaluation and management of chest pain S/p cardiac catheterization, non-obstructive disease EP consult for a-fib management Syncope Active Problems: Active Hospital Problems Diagnosis ??? ASCVD (arteriosclerotic cardiovascular disease) PCI in 2005 at [facility]: stents to LAD x2, LCx [...] sitting position on the toilet by a assistant men's soccer coach. When the assistant men's soccer coach went to find other staff to help [...] his reports. He was evaluated by this music writer along with Dr. Mahmood once he [...] x2, distal LCx x2, ramus x1 at [facility]), HTN, HLD, persistent a-fib (diagnosed 6 weeks ago, s/p DCCV 3weeks ago, on xarelto), and brain abscess (s/p surgery and abx treatment in 2014) who presented to [facility] with progressive dyspnea and lightheadedness on [...] controlled HR controlled in 80-100s since admission [id number] Score: 4 (age, HTN, CAD) Continue metoprolol [...] I shared this visit with Elena Jessee PUBLICATIONS EDITOR and guided the medical decision-making. * Deonna Rasheed, JOSE - 07/27/2018 1:28 PM EDT Inpatient Cardiology Progress Note Patient Name: Agata Flores Service: BSW / PA Responsible Attending: Cameron Mahmood MD Reason for continued hospitalization: Evaluation and management of chest pain S/p cardiac catheterization, non-obstructive disease EP consult for a-fib management Active Problems: Active Hospital Problems Diagnosis ??? ASCVD (arteriosclerotic cardiovascular disease) PCI in 2005 at [facility]: stents to LAD x2, LCx [...] x2, distal LCx x2, ramus x1 at [facility]), HTN, HLD, persistent a-fib (diagnosed 6 weeks ago, s/p DCCV 3weeks ago, on xarelto), and brain abscess (s/p surgery and abx treatment in 2014) who presented to [facility] with progressive dyspnea and lightheadedness on [...] Persistent a-fib, rate controlled HR controlled in [id number] since admission [id number] Score: 4 (age, HTN, CAD) Continue metoprolol, [...] with Cameron Mahmood MD. Deonna Rasheed, MSN, WAREHOUSE GENERAL LABORER-, JOSE 07/27/2018 Pager [phone] Associated attestation - Cameron Mahmood MD - 07/27/2018 3:58 PM EDT Cardiology Attending Addendum I shared this visit with Deonna Rasheed APRN, and guided the medical decision-making. * Min Jeffery II - 07/27/2018 11:33 AM EDT Agata Flores July 27, [id number] Content Developer - Preliminary Findings Procedures: coronary angiography left [...] be: 4 (see definitions below). Definitions from [place] [employer] Health and Aging Clinical Frailty [...] with all outside activities and with minor metal fabricator helper. May need help with bathing and dressing. [...] this encounter H&P Notes * Deonna Rasheed, PUBLICATIONS EDITOR - 07/26/2018 11:05 AM EDT Cardiology Admission H&P Patient Name: Agata Flores Date of : 1945 Age: 72 y.o. Hospital Admit Date: 07/26/2018 Inpatient Attending: Cameron Mahmood MD PCP: Agata Barrera, Presenting Diagnosis/Chief Complaint: Chest pressure Active Problem List: Active Hospital Problems Diagnosis ??? ASCVD (arteriosclerotic cardiovascular disease) PCI in 2005 at [facility]: stents to LAD x2, LCx [...] x2, distal LCx x2, ramus x1 at [facility]), HTN, HLD, persistent a-fib (diagnosed 6 weeks ago, s/p DCCV 3 weeks ago, on xarelto), and brain abscess (s/p surgery and abx treatment in 2014) who presented to [facility] with progressive dyspnea and lightheadedness on [...] presumed to be in sinus rhythm. His maintenance construction helper, Dr. Ma, had also scheduled him for an outpatient nuclear stress test to be done in the coming weeks. On Friday, 07/24, he had an episode of chest pressure, occurring with his shortness of breath and lightheadedness on exertion. It was relieved with rest. He went to [facility] ED and was in a-fib with HR 80. Troponins were negative, EKG was without concerning findings. He was admitted to await transfer to [facility] for c ardiac catheterization, given his history of ASCVD. He had one additional episode of chest pressureon exertion while at [facility], when he had gotten up to [...] past. He was started on aspirin at [facility] without side effects. Past Medical History: Past Medical History: Diagnosis Date ??? A-fib ??? Brain abscess ??? CAD (coronary artery disease) ??? HLD (hyperlipidemia) ??? HTN (hypertension) Surgical History/Problems: Past Surgical History: Procedure Laterality Date ??? PRO STEREO BX/ASPIR/EXCIS, INTRACRANIAL LESN Right 01/27/2015 @STEREOTACTIC BX,ASP, OR EXC.-INTRACRANIAL LESION, W/SCAN performed by Jose Small MD at [facility] MA[facility] OR ??? 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: Review of Systems [...] LAD x2, distalLCx x2, ramus x1 at [facility]), HTN, HLD, persistent a-fib (diagnosed 6 weeks ago, s/p DCCV 3 weeks ago, on xarelto), and brain abscess (s/p surgery and abx treatment in 2014) who presented to [facility] with progressive dyspnea and lightheadedness on [...] 2018 showed EF 60-65%, no WMAs, per [facility] notes) Plan for cardiac catheterization tomorrow No plavix or heparin at this time Continue aspirin, metoprolol, statin, SL nitro prn Persistent a-fib, rate controlled HR controlled in 80s since admission [id number] Score: 4 (age, HTN, CAD) Continue metoprolol [...] with Cameron Mahmood MD. Deonna Rasheed, MSN, WAREHOUSE GENERAL LABORER-ANDREEA, JOSE 07/26/2018 Pager [phone] Associated attestation - Cameron Mahmood MD - [...] (arteriosclerotic cardiovascular disease) PCI in 2005 at [facility]: stents to LAD x2, LCx [...] get scripts to family to bring to [facility] pharm to ensure receipt prior to close [...] 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: MEDICARE Secondary Insurance: [employer] [place] Prescription Coverage: yes Preferred Pharmacy: See demographics Other: n/a Primary Care Provider: Agata Barrera DO [phone] Patient/Caregiver Goals of Treatment: To figure out [...] abx treatment in 2015) who presented to [facility] with dyspnea, lightheadedness and chest pressure. ??Plan is for [facility] tomorrow. Pt is independent with no home care needs identified. Plan: DC home/ Self care A member of the Care Management team will continue to monitor progress, follow for continuity of care and assist with transition of care planning. Corazon Allen RN Pager: [phone] * Consult Note - Danuta Kerr RN - 07/28/2018 9:47 AM EDT [facility] RESPONSE TEAM NOTE Name: Agata Flores Age: 72 y.o. Sex; Male Date of : 1945 Responding Members: Patt Kerr RN, Carmen Goetz RCP, Karen Martin RCP, Cindy LAY Date/Time of Admission: 07/26/2018 11:01 AM Unit/Room: [facility] Service: Cardiology Time Activated: 08 Time Arrived: 0834 Time at bedside: 60 minutes Indication for Consult: LOC ASSESSMENT/INTERVENTION Brief 24 hr history: Cary gamboa received at 0831. On arrival to room, Mr. Flores found supine onbathroom floor, wedged against wall. He was awake, in care of several 4E RN's and [employer]. No compressions had been administered. He had regular respirations, palp radial, appropriate verbal responses. Skin cool, pale quality, wet (from shower vs diaphoresis). Unprotected fall from toilet confirmed by patient and [employer]; CTLS precautions initiated. Per patient report, he had become dizzy at end of hisshower, had seated self on toilet and pulled cord in bathroom for assist. [employer] responded, left to obtain additional assist and on return found Mr. Flores on bathroom floor. Concern for initial status pr ompted Code Blue activation. Per report, likely full LOC as patient stated I sat on the toilet andthe next I knew I was on the floor. LOC described as brief, self resolving. cardiac monitor had been disconnected for Mr. Flores [...] x2, distal LCx x2, ramus x1 at [facility]), HTN and HLD. His cardiac enzymes remained negative and his EKGs were not suggestive of ischemia. He was transferred to [facility] for cardiac catheterization which revealed non-obstructive CAD. [...] Pertinent Medications: Current Facility-Administered Medications Ordered in [facility] Medication Dose Route Frequency Provider Last Rate Last Dose ??? sodium chloride 0.9% infusion 100 mL/hr Intravenous Continuous Darion Machado MD 100 mL/hr at 07/27/18 1142 100 mL/hr at 07/27/18 1142 ??? rivaroxaban (XARELTO) tablet 20 mg 20 mg Oral Daily with dinner Kathya, Deonna T, PUBLICATIONS EDITOR ??? metoprolol tartrate (LOPRESSOR) tablet 25 mg 25 mg Oral Q6H POPPY Kathya Deonna T, PUBLICATIONS EDITOR 25 mg at 07/27/18 0612 ??? aspirin EC tablet 81 mg 81 mg Oral Daily Kathya, Deonna T, PUBLICATIONS EDITOR 81 mg at 07/27/18 0811 ??? nitroGLYcerin (NITROSTAT) SL tablet 0.4 mg 0.4 mg Sublingual Q5 Min PRN Kathya, Deonna T, PUBLICATIONS EDITOR ??? acetaminophen (TYLENOL) tablet 650 mg 650 mg Oral Q4H PRN Kathya, Deonna T, PUBLICATIONS EDITOR ??? brimonidine (ALPHAGAN) 0.2 % ophthalmic solution 1 drop 1 drop Both Eyes BID Kathya, Deonna T,PUBLICATIONS EDITOR 1 drop at 07/27/18 0811 And ??? timolol (TIMOPTIC) 0.5 % ophthalmic solution 1 drop 1 drop Both Eyes BID Kathya, Deonna T, PUBLICATIONS EDITOR 1 drop at 07/27/18 0811 ??? rosuvastatin (CRESTOR) tablet 10 mg 10 mg Oral QPM Kathya, Deonna T, PUBLICATIONS EDITOR 10 mg at 07/26/18 1636 No current [facility]-ordered outpatient prescriptions on file. 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 Physical Exam: Vital signs: Last value [...] 12 lead EK07/27/2018 Atrial fibrillation @ 75; NJ 166; QRs 76; QTc 426ms Assessment: Agata [...] to follow patient. Provider: GAGE Aldridge Provider#: [id number] Consult attending physician: Alvaro Maki MD EP Consult positional pager #[phone](EPVA) EP Device interrogation positional pager # [phone] Associated attestation - Fred Maki MD - [...] further details. Deonna Rasheed APRN 07/26/2018 Pager [phone] documented in this encounter Plan of Treatment [...] Routine 07/27/2018 3:46 AM EDT CARDIAC ENZYMES ([facility]) STAT 07/26/2018 10:30 PM EDT CARDIAC ENZYMES ([facility]) STAT 07/26/2018 4:31 PM EDT SCAN, PERIPHERAL BLOOD STAT 8 11:44 AM EDT HEMOGRAM STAT 07/26/2018 11:44 AM EDT DIFFERENTIAL, AUTOMATED STAT 07/26/20 18 11:44 AM EDT CARDIAC ENZYMES ([facility]) STAT 07/26/2018 11:44 AM EDT APTT STAT [...] 11:14 AM EDT Chest pain, unspecified type COIL SPRING ASSEMBLER SCAN 07/26/2018 12:00 AM EDT documented in this encounter Results * EKG 12 Lead (08/01/2018 11:02 AM EDT) Ventricular rate 52 BPM MUSE SYSTEM Atrial Rate 53 BPM MUSE SYSTEM QRS Duration 76 ms MUSE SYSTEM Q-T Interval 482 ms MUSE SYSTEM QTC Calculated (Bezet) 448 ms MUSE SYSTEM Calculated P Blakeslee 62 degrees MUSE SYSTEM Calculated R Blakeslee 24 degrees MUSE SYSTEM Calculated T Blakeslee 121 degrees MUSE SYSTEM INTERPRETATION Sinus bradycardia [...] 3:35 AM EDT) Neutrophil % 38.8 % [facility] Neutrophil Absolute 5.48 1.70 - 6.10 x10(3)/mc L [facility] Lymph % 15.9 % [facility] Lymphocytes Abs 2.2 0.9 - 3.2 x10(3)/mc L [facility] Monocyte % 7.1 % [facility] Monocyte Abs 1.0(H) 0.3 - 0.9 x10(3)/mc L [facility] Eos % 37.5 % [facility] Eosinophils Abs 5.3(H) 0.0 - 0.4 x10(3)/mc L [facility] Basophil % 0.5 % [facility] Baso Absolute 0.1 0.0 - 0.1 x10(3)/[facility] Immature Gran % 0.20 % [place] [...] 0.00 - 0.04 x10(3)/[facility] Blood specimen (specimen) 08/01/2018 3:35 AM EDT 08/01/2018 3:56 AM EDT Narrative Resulting Agency Comment Spec In Lab Elena Hooks APRN HEMATOLOGY ORDERABLE S Performing Organization Address City/State/[facility] Co de Phone Number [facility] [place] [address] * (ABNORMAL) Hemogram (08/01/2018 3:35 AM EDT) White Blood Cell 14.1(H) 4.0 - 9.5 x10(3)/[facility] Red Blood Cell 4.27(L) 4.58 - 5.54 x10(6)/[facility] Hemoglobin 13.9 13.7 - 16.5 [...] HOSPITAL LABORATORY Platelet 198 145 - 357 x10(3)/[facility] RDW Standard Deviation 41.2 36.0 - 45.0 fL [facility] RDW coefficient of variation 12.6 11.4 - 13.8 % [facility] Mean Platelet Volume 11.3 7.6 - 12.9 fL [facility] NRBC% auto 0.0 % [facility] NRBC Absolute 0.000 0.000 - 0.000 x10(3)/mc L [facility] Blood specimen (specimen) 08/01/2018 3:35 AM EDT 08/01/2018 3:56 AM EDT Narrative Resulting Agency Comment Spec In Lab Elena Hooks APRN HEMATOLOGY ORDERABLE S Performing Organization Address City/State/[facility] Co de Phone Number [facility] [place] [address] * (ABNORMAL) BMP w/fasting Glucose (08/01/2018 3:35 [...] of Diabetes Mellitus, Position Statement from the [place] [employer]. ??Diabetes Care, Volume 33, Supplement [...] of body mass or the acutely ill. [email or web address] [facility] eGFR 104 >=60 mL/min/1. 73 m?? [facility] Comment: The eGFR was calculated using the CKD-EPI equation. As with all creatinine based estimates of kidney function, eGFR values calculated with the CKD-EPI equation are not accurate in patients with acute kidney failure, extremes of body mass or the acutely ill. [email or web address] Blood specimen (specimen) 08/01/2018 3:35 AM EDT 08/01/2018 3:56 AM EDT Narrative Resulting Agency Comment Spec In Lab Elena Hooks APRN CHEMISTRY ORDERABLES [facility] [place] [address] * EKG 12 Lead (08/01/2018 12:00 AM EDT) Ventricular rate 58 BPM MUSE SYSTEM Atrial Rate 58 BPM MUSE SYSTEM P-R Interval 158 ms MUSE SYSTEM QRS Duration 82 ms MUSE SYSTEM Q-T Interval 530 ms MUSE SYSTEM QTC Calculated (Bezet) 520 ms MUSE SYSTEM Calculated P Blakeslee 74 degrees MUSE SYSTEM Calculated R Blakeslee 45 degrees MUSE SYSTEM Calculated T Blakeslee 97 degrees MUSE SYSTEM INTERPRETATION Sinus bradycardia [...] AM EDT 08/01/2018 1:32 PM EDT Elena De Dios King JOSE ECG ORDERABLES Performing Organization Address [facility] Co de Phone Number MUSE SYSTEM * EKG 12 Lead (07/31/2018 2:14 PM EDT) Ventricular rate 56 BPM MUSE SYSTEM Atrial Rate 56 BPM MUSE SYSTEM P-R Interval 162 ms MUSE SYSTEM QRS Duration 76 ms MUSE SYSTEM Q-T Interval 482 ms MUSE SYSTEM QTC Calculated (Bezet) 465 ms MUSE SYSTEM Calculated P Blakeslee 70 degrees MUSE SYSTEM Calculated R Blakeslee 17 degrees MUSE SYSTEM Calculated T Blakeslee 134 degrees MUSE SYSTEM INTERPRETATION Sinus bradycardia [...] Hooks APRN ECG ORDERABLES Performing Organization Address [facility] Co de Phone Number MUSE SYSTEM * EKG 12 Lead (07/31/2018 8:32 AM EDT) Ventricular rate 54 BPM MUSE SYSTEM Atrial Rate 54 BPM MUSE SYSTEM P-R Interval 160 ms MUSE SYSTEM QRS Duration 78 ms MUSE SYSTEM Q-T Interval 498 ms MUSE SYSTEM QTC Calculated (Bezet) 472 ms MUSE SYSTEM Calculated P Blakeslee 67 degrees MUSE SYSTEM Calculated R Blakeslee 12 degrees MUSE SYSTEM Calculated T Blakeslee 128 degrees MUSE SYSTEM INTERPRETATION Sinus bradycardia with marked sinus arrhythmia Low voltage QRS Nonspecific T wave abnormality Prolonged QT Abnormal ECG When compared with ECG of 31-JUL-2018 07:44, No significant change was found Confirmed by Denys Miller MD ([id number]) on 07/31/2018 5:01:20 PM MUSE SYSTEM 07/31/2018 8:32 AM EDT 07/31/2018 5:01 PM EDT Ant Suarez MD ECG ORDERABLES Performing Organization Address [facility] Phone Number MUSE SYSTEM * EKG 12 Lead (07/31/2018 7:44 AM EDT) Ventricular rate 56 BPM MUSE SYSTEM Atrial Rate 56 BPM MUSE SYSTEM P-R Interval 164 ms MUSE SYSTEM QRS Duration 84 ms MUSE SYSTEM Q-T Interval 494 ms MUSE SYSTEM QTC Calculated (Bezet) 476 ms MUSE SYSTEM Calculated P Blakeslee 71 degrees MUSE SYSTEM Calculated R Blakeslee 15 degrees MUSE SYSTEM Calculated T Blakeslee 127 degrees MUSE SYSTEM INTERPRETATION Sinus bradycardia [...] Hooks APRN ECG ORDERABLES Performing Organization Address [facility] Phone Number MUSE SYSTEM * (ABNORMAL) Differential, Automated (07/31/2018 6:33 AM EDT) Neutrophil % 39.3 % [facility] Neutrophil Absolute 5.61 1.70 - 6.10 x10(3)/mc L [facility] Lymph % 13.7 % [facility] Lymphocytes Abs 2.0 0.9 - 3.2 x10(3)/mc L [facility] Monocyte % 7.4 % [facility] Monocyte Abs 1.0(H) 0.3 - 0.9 x10(3)/[facility] Eos % 38.8 % [facility] Eosinophils Abs 5.5(H) 0.0 - 0.4 x10(3)/[facility] Basophil % 0.6 % [facility] Baso Absolute 0.1 0.0 - 0.1 x10(3)/[facility] Immature Gran % 0.20 % [place] [...] 0.00 - 0.04 x10(3)/[facility] Blood specimen (specimen) 07/31/2018 6:33 AM EDT 07/31/2018 6:52 AM EDT Narrative Resulting Agency Comment Spec In Lab Elena Hooks APRN HEMATOLOGY ORDERABLE S Performing Organization Address City/State/[facility] Co de Phone Number [facility] [place] [address] * (ABNORMAL) Hemogram (07/31/2018 6:33 AM EDT) White Blood Cell 14.3(H) 4.0 - 9.5 x10(3)/[facility] Red Blood Cell 4.92 4.58 - 5.54 x10(6)/[facility] Hemoglobin 15.8 13.7 - 16.5 gm/dL [facility] Hematocrit 45.2 40.5 - 48.5 % [facility] Mean Cell Volume 91.9 82.9 - 93.1 fL [facility] Mean Cell Hemoglobin 32.1 27.5 - 32.1 pg [facility] Mean Cell Hemoglobin Concentration 35.0 32.0 - 35.7 gm/dL [facility] Platelet 183 145 - 357 x10(3)/mc L [facility] RDW Standard Deviation 42.5 36.0 - 45.0 fL [facility] RDW coefficient of variation 12.6 11.4 - 13.8 % [facility] Mean Platelet Volume 11.0 7.6 - 12.9 fL [facility] NRBC% auto 0.0 % [facility] NRBC Absolute 0.000 0.000 - 0.000 x10(3)/mc L [facility] Blood specimen (specimen) 07/31/2018 6:33 AM EDT 07/31/2018 6:52 AM EDT Narrative Resulting Agency Comment Spec In Lab Elena Hooks APRN HEMATOLOGY ORDERABLE S Performing Organization Address City/State/[facility] Co de Phone Number [facility] [place] [address] * (ABNORMAL) BMP w/fasting Glucose (07/31/2018 6:33 [...] of Diabetes Mellitus, Position Statement from the [place] [employer]. ??Diabetes Care, Volume 33, Supplement [...] of body mass or the acutely ill. [email or web address] eGFR 106 >=60 mL/min/1. 73 m?? [facility] Comment: The eGFR was calculated using the CKD-EPI equation. As with all creatinine based estimates of kidney function, eGFR values calculated with the CKD-EPI equation are not accurate in patients with acute kidney failure, extremes of body mass or the acutely ill. [email or web address] Blood specimen (specimen) 07/31/2018 6:33 AM EDT 07/31/2018 6:52 AM EDT Narrative Resulting Agency Comment Spec In Lab Elena Hooks APRN CHEMISTRY ORDERABLES [facility] [place] [address] * EKG 12 Lead (07/31/2018 12:17 AM EDT) Ventricular rate 68 BPM MUSE SYSTEM Atrial Rate 68 BPM MUSE SYSTEM P-R Interval 176 ms MUSE SYSTEM QRS Duration 74 ms MUSE SYSTEM Q-T Interval 490 ms MUSE SYSTEM QTC Calculated (Bezet) 521 ms MUSE SYSTEM Calculated P Blakeslee 80 degrees MUSE SYSTEM Calculated R Blakeslee 22 degrees MUSE SYSTEM Calculated T Blakeslee 73 degrees MUSE SYSTEM INTERPRETATION Sinus rhythm [...] Hooks APRN ECG ORDERABLES Performing Organization Address [facility] Co de Phone Number MUSE SYSTEM * EKG 12 Lead (07/30/2018 12:36 PM EDT) Ventricular rate 58 BPM MUSE SYSTEM Atrial Rate 58 BPM MUSE SYSTEM P-R Interval 170 ms MUSE SYSTEM QRS Duration 74 ms MUSE SYSTEM Q-T Interval 490 ms MUSE SYSTEM QTC Calculated (Bezet) 481 ms MUSE SYSTEM Calculated P Blakeslee 73 degrees MUSE SYSTEM Calculated R Blakeslee 20 degrees MUSE SYSTEM Calculated T Blakeslee 149 degrees MUSE SYSTEM INTERPRETATION Sinus bradycardia [...] Maki MD ECG ORDERABLES Performing Organization Address [facility] Co de Phone Number MUSE [...] (arteriosclerotic cardiovascular disease) ??PCI in 2005 at [facility]: stents to LAD x2, LCx [...] (Bezet) 522 ms MUSE SYSTEM Calculated R Blakeslee 21 degrees MUSE SYSTEM Calculated T Blakeslee -141 degrees MUSE SYSTEM INTERPRETATION Atrial flutter with variable A-V block Abnormal ECG When compared with ECG of 30-JUL-2018 07:34, No significant change was found Confirmed by MD PAT, KURTIS ([id number]) on 07/30/2018 4:46:36 PM MUSE SYSTEM 07/30/2018 10:0 4 AM EDT 07/30/2018 4:46 PM EDT Elena Hooks PUBLICATIONS EDITOR ECG ORDERABLES Performing Organization Address City/[facility]/ZIP Co de Phone Number MUSE SYSTEM * EKG 12 Lead (07/30/2018 7:34 AM EDT) Ventricular rate 90 BPM MUSE SYSTEM Atrial Rate 90 BPM MUSE SYSTEM QRS Duration 74 ms MUSE SYSTEM Q-T Interval 392 ms MUSE SYSTEM QTC Calculated (Bezet) 479 ms MUSE SYSTEM Calculated R Blakeslee 22 degrees MUSE SYSTEM Calculated T Blakeslee 107 degrees MUSE SYSTEM INTERPRETATION Atrial flutter with variable A-V block with premature ventricular or aberrantly conducted complexes Abnormal ECG When compared with ECG of 29-JUL-2018 23:04, (unconfirmed) Current undetermined rhythm precludes rhythm comparison, needs review No significant change was found Confirmed by MD Chamberlain Timothy ([id number]) on 07/30/2018 3:49:11 PM MUSE SYSTEM 07/30/2018 7:34 AM EDT 07/30/2018 3:49 PM EDT Elena Hooks PUBLICATIONS EDITOR ECG ORDERABLES Performing Organization Address [facility]/ZIP Co de Phone Number MUSE SYSTEM * (ABNORMAL) Differential, Automated (07/30/2018 4:06 AM EDT) Neutrophil % 57.5 % [facility] Neutrophil Absolute 9.87(H) 1.70 - 6.10 x10(3)/mc L [facility] Lymph % 11.4 % [facility] Lymphocytes Abs 2.0 0.9 - 3.2 x10(3)/mc L [facility] Monocyte % 7.5 % [facility] Monocyte Abs 1.3(H) 0.3 - 0.9 x10(3)/mc L [facility] Eos % 23.0 % [facility] Eosinophils Abs 4.0(H) 0.0 - 0.4 x10(3)/mc L [facility] Basophil % 0.3 % [facility] Baso Absolute 0.0 0.0 - 0.1 x10(3)/mc L [facility] [...] Immature Gran Absolute 0.06(H) 0.00 - 0.04 x10(3)/mc L [facility] Blood specimen (specimen) 07/30/2018 4:06 AM EDT 07/30/2018 4:38 AM EDT Narrative Resulting Agency Comment Spec In Lab Deonna Rasheed PUBLICATIONS EDITOR HEMATOLOGY ORDERAB LES Performing Organization Address City/State/[facility] Co de Phone Number [facility] [place] [address] * (ABNORMAL) Hemogram (07/30/2018 4:06 AM EDT) White Blood Cell 17.2(H) 4.0 - 9.5 x10(3)/ L [facility] Red Blood Cell 4.75 4.58 - 5.54 x10(6)/mc L [facility] Hemoglobin 15.0 13.7 [...] [facility] NRBC% auto 0.0 % [facility] NRBC Absolute 0.000 0.000 - 0.000 x10(3)/mc L [facility] Blood specimen (specimen) 07/30/2018 4:06 AM EDT 07/30/2018 4:38 AM EDT Narrative Resulting Agency Comment Spec In Lab Deonna Rasheed PUBLICATIONS EDITOR HEMATOLOGY ORDERAB LES Performing Organization Address [facility] Co de Phone Number [facility] [place] [address] * Magnesium (07/30/2018 4:06 AM EDT) Magnesium 0.83 0.69 - 1.07 mmol/L [facility] Blood specimen (specimen) 07/30/2018 4:06 AM EDT 07/30/2018 4:38 AM EDT Narrative Resulting Agency Comment Spec In Lab Deonna Rasheed PUBLICATIONS EDITOR CHEMISTRY ORDERABL ES Performing Organization Address [facility] Phone Number [facility] [place] [address] * (ABNORMAL) BMP w/fasting Glucose (07/30/2018 4:06 [...] of Diabetes Mellitus, Position Statement from the [place] [employer]. ??Diabetes Care, Volume 33, Supplement [...] of body mass or the acutely ill. [email or web address]/[facility] eGFR 103 >=60 mL/min/1. 73 m?? [facility] Comment: The eGFR was calculated using the CKD-EPI equation. As with all creatinine based estimates of kidney function, eGFR values calculated with the CKD-EPI equation are not accurate in patients with acute kidney failure, extremes of body mass or the acutely ill. [email or web address] Blood specimen (specimen) 07/30/2018 4:06 AM EDT 07/30/2018 4:38 AM EDT Narrative Resulting Agency Comment Spec In Lab Deonna Rasheed APRN CHEMISTRY ORDERABL ES [facility] [place] [address] * EKG 12 Lead (07/29/2018 11:04 PM EDT) Ventricular rate 101 BPM MUSE SYSTEM Atrial Rate 104 BPM MUSE SYSTEM P-R Interval 176 ms MUSE SYSTEM QRS Duration 78 ms MUSE SYSTEM Q-T Interval 380 ms MUSE SYSTEM QTC Calculated (Bezet) 492 ms MUSE SYSTEM Calculated P Blakeslee 106 degrees MUSE SYSTEM Calculated R Blakeslee 26 degrees MUSE SYSTEM Calculated T Blakeslee 167 degrees MUSE SYSTEM INTERPRETATION Probable Atrial [...] ?YOAN Haines ?(Age): 1945(72y) Med Rec#: ? [id number] ?Sex: ?M ? Site Loc: ? [facility] ?Ht / Wt: ??188(cm)/97(kg) Pt. Loc: ?Content Developer ?BSA: ?2.24 Study Date: ?? 07/29/2018 ?Pt. Type: Tape: ? Referring: CLAUDIA JONES Reading: Ant Suarez ([id number]) [employer] Ha[employer] Driver: Tricia Donis ([id number]) Interpreting Fellow: Tricia Donis ([id number]) Diagnosis: *Unspecified atrial fibrillation (I48.91) Rhythm: ? [...] superior vena cava appears normal in size. Enno Procedures: ? The procedure and risk were explained to the patient who consented to the study. ?After conscious sedation was administered per hospital protocol, the NENO probe was passed by Dr. Donis under the supervision of Dr. Suarez. ?The [facility] Echo Lab protocols for NENO procedures in [...] 07/29/2018 15:50:44 Images reviewed and interpretation verified [facility] Cardiac Ultrasound [facility] Procedure Note Ant Suarez MD - 07/29/2018 Procedure: Transesophageal Echocardiogram Patient: YOAN AVELAR(Age): 1945(72y) Med Rec#: [id number] Sex: M Site Loc: [facility] Ht / Wt: 188(cm)/97(kg) Pt. Loc: Content Developer BSA: 2.24 Study Date: 07/29/2018 Pt. Type: Tape: Referring: CLAUDIA JONES Reading: Ant Suarez ([id number]) [employer] Driver: Tricia Donis ([id number]) Interpreting Fellow: Tricia Donis ([id number]) Diagnosis: *Unspecified atrial fibrillation (I48.91) Rhythm: A-Fib [...] under the supervision of Dr. Suarez. The [facility] Echo Lab protocols for NENO procedures in [...] 07/29/2018 15:50:44 Images reviewed and interpretation verified [facility]ound [facility] Deonna Rasheed APRN ECHO ORDERABLES * Urine Hold (07/29/2018 1:38 PM EDT) Hold, Urine Sample in lab. [facility] Urine specimen (specimen) Urine / Unknown 07/29/2018 1:38 PM EDT 07/29/2018 2:45 PM EDT Elena Hooks APRN URINE ORDERABLES [facility] [place] [address] * Urinalysis with reflex Culture (07/29/2018 1:38 [...] HOSPITAL LABORATORY Leukocytes, Urine Dipstick Negative Negative [facility] Appearance, Urine Dipstick Clear Clear [facility] Specific [place] Urine Automated 1.020 1.002 - 1.030 [facility] Color, Urine Dipstick Yellow Yellow [facility] Reflex to Culture No [facility] Urine specimen obtained by clean catch procedure (specimen) 07/29/2018 1:38 PM EDT 07/29/2018 2:45 PM EDT Narrative Resulting Agency Comment Spec In Lab Elena Hooks APRN URINE ORDERABLES Performing Organization Address City/[facility]/ZIP Co de Phone Number [facility] [place] [address] * EKG 12 Lead (07/29/2018 7:21 AM EDT) Ventricular rate 84 BPM MUSE SYSTEM Atrial Rate 375 BPM MUSE SYSTEM QRS Duration 72 ms MUSE SYSTEM Q-T Interval 400 ms MUSE SYSTEM QTC Calculated (Bezet) 472 ms MUSE SYSTEM Calculated R Blakeslee 9 degrees MUSE SYSTEM Calculated T Blakeslee 10 degrees MUSE SYSTEM INTERPRETATION Atrial fibrillation Abnormal ECG When compared with ECG of 28-JUL-2018 08:44, (unconfirmed) No significant change was found I personally reviewed the tracing and edited the fellows interpretation Confirmed by fellow MD Langley Daniel ([id number]) on 07/29/2018 2:47:56 PM Confirmed by MD Colton, Humble White ([id number]) on 07/29/2018 4:42:19 PM MUSE SYSTEM 07/29/2018 7:21 AM EDT 07/29/2018 4:42 PM EDT Deonna Rasheed APRN ECG ORDERABLES Performing Organization Address City/[facility]/ZIP Co de Phone Number MUSE SYSTEM * (ABNORMAL) Differential, Automated (07/29/2018 5:17 AM EDT) Neutrophil % 50.1 % [facility] Neutrophil Absolute 7.84(H) 1.70 - 6.10 x10(3)/mc L [facility] Lymph % 11.6 % [facility] Lymphocytes Abs 1.8 0.9 - 3.2 x10(3)/[facility] Monocyte % 6.9 % [facility] Monocyte Abs 1.1(H) 0.3 - 0.9 x10(3)/[facility] Eos % 30.7 % [facility] Eosinophils Abs 4.8(H) 0.0 - 0.4 x10(3)/[facility] Basophil % 0.3 % [facility] Baso Absolute 0.0 0.0 - 0.1 x10(3)/[facility] Immature Gran % 0.40 % [place] [...] 0.00 - 0.04 x10(3)/[facility] Blood specimen (specimen) 07/29/2018 5:17 AM EDT 07/29/2018 5:44 AM EDT Narrative Resulting Agency Comment Spec In Lab Deonna Rasheed PUBLICATIONS EDITOR HEMATOLOGY ORDERAB LES [facility] [address] * (ABNORMAL) Hemogram (07/29/2018 5:17 AM EDT) White Blood Cell 15.6(H) 4.0 - 9.5 x10(3)/[facility] Red Blood Cell 4.93 4.58 - 5.54 x10(6)/[facility] Hemoglobin 15.7 13.7 - 16.5 [...] Platelet 208 145 - 357 x10(3)/mc L [facility] RDW Standard Deviation 42.3 36.0 - 45.0 fL [facility] RDW coefficient of variation 12.7 11.4 - 13.8 % [facility] Mean Platelet Volume 11.1 7.6 - 12.9 [facility] LABORATORY NRBC% auto 0.0 % [facility] NRBC Absolute 0.000 0.000 - 0.000 x10(3)/mc L [facility] Blood specimen (specimen) 07/29/2018 5:17 AM EDT 07/29/2018 5:44 AM EDT Narrative Resulting Agency Comment Spec In Lab Deonna Rasheed PUBLICATIONS EDITOR HEMATOLOGY ORDERAB LES Performing Organization Address [facility]/ZIP Co de Phone Number [facility] [address] * Magnesium (07/29/2018 5:17 AM EDT) Magnesium 0.85 0.69 - 1.07 mmol/L [facility] Blood specimen (specimen) 07/29/2018 5:17 AM EDT 07/29/2018 5:44 AM EDT Narrative Resulting Agency Comment Spec In Lab Deonna Rasheed PUBLICATIONS EDITOR CHEMISTRY ORDERABL ES Performing Organization Address City/[facility] Co de Phone Number [facility] [address] * (ABNORMAL) BMP w/fasting Glucose (07/29/2018 5:17 [...] of Diabetes Mellitus, Position Statement from the [place] [employer]. ??Diabetes Care, Volume 33, Supplement [...] of body mass or the acutely ill. http://[employer]/[facility] eGFR 100 >=60 mL/min/1. 73 m?? [facility] Comment: The eGFR was calculated using the CKD-EPI equation. As with all creatinine based estimates of kidney function, eGFR values calculated with the CKD-EPI equation are not accurate in patients with acute kidney failure, extremes of body mass or the acutely ill. [email or web address] Blood specimen (specimen) 07/29/2018 5:17 AM EDT 07/29/2018 5:44 AM EDT Narrative Resulting Agency Comment Spec In Lab Deonna Eneida WoodKathya PUBLICATIONS EDITOR CHEMISTRY ORDERABL ES [facility] [place] [id number] * CT Cervical Spine wo Contrast (07/28/2018 [...] No acute cervical spine fracture. Elena Hooks PUBLICATIONS EDITOR [facility] ORDERABLES * CT Head wo Contrast [...] to adjacentdental disease. 10:37 AM Elena Hooks PUBLICATIONS EDITOR IMG CT ORDERABLES * POCT Glucose (07/28/2018 9:12 AM EDT) [facility] Glucose, POC 191 65 - 199 mg/dL [facility] Comment: Supplemental ranges: <140 mg/dL before meals <180 mg/dL all other times of the day Blood specimen (specimen) 07/28/2018 9:12 AM EDT 07/28/2018 9:12 AM EDT Cameron Mahmood MD POINT OF CARE TEST O RDERABLES [facility] [address] * EKG 12 Lead (07/28/2018 8:44 AM EDT) Ventricular rate 77 BPM MUSE SYSTEM Atrial Rate 357 BPM MUSE SYSTEM QRS Duration 76 ms MUSE SYSTEM Q-T Interval 410 ms MUSE SYSTEM QTC Calculated (Bezet) 463 ms MUSE SYSTEM Calculated R Blakeslee 14 degrees MUSE SYSTEM Calculated T Blakeslee 48 degrees MUSE SYSTEM INTERPRETATION Atrial fibrillation Abnormal ECG When compared with ECG of 28-JUL-2018 07:19, No significant change was found I personally reviewed the tracing and edited the fellows interpretation Confirmed by fellow MD Langley Daniel ([id number]) on 07/29/2018 2:53:27 PM Confirmed by MD Colton, Humble White ([id number]) on 07/29/2018 4:42:14 PM MUSE SYSTEM 07/28/2018 8:44 AM EDT 07/29/2018 4:42 PM EDT Deonna T Kathya PUBLICATIONS EDITOR ECG ORDERABLES Performing Organization Address [facility] Co de Phone Number MUSE SYSTEM * EKG 12 Lead (07/28/2018 7:19 AM EDT) Ventricular rate 81 BPM MUSE SYSTEM Atrial Rate 326 BPM MUSE SYSTEM QRS Duration 76 ms MUSE SYSTEM Q-T Interval 402 ms MUSE SYSTEM QTC Calculated (Bezet) 466 ms MUSE SYSTEM Calculated R Blakeslee 7 degrees MUSE SYSTEM Calculated T Blakeslee 63 degrees MUSE SYSTEM INTERPRETATION Atrial fibrillation Abnormal ECG When compared with ECG of 27-JUL-2018 07:24, No significant change was found I personally reviewed the tracing and edited the fellows interpretation Confirmed by fellow MD Langley Daniel ([id number]) on 07/28/2018 8:28:08 AM Confirmed by MD Segura Shawn M. ([id number]) on 07/28/2018 5:49:00 PM MUSE SYSTEM 07/28/2018 7:19 AM EDT 07/28/2018 5:49 PM EDT Deonna T Kathya CARRILLON ECG ORDERABLES Performing Organization Address [facility] Co de Phone Number MUSE SYSTEM * (ABNORMAL) Differential, Automated (07/28/2018 3:54 AM EDT) Neutrophil % 41.8 % [facility] Neutrophil Absolute 6.28(H) 1.70 - 6.10 x10(3)/mc L [facility] Lymph % 13.3 % [facility] Lymphocytes Abs 2.0 0.9 - 3.2 x10(3)/mc L [facility] Monocyte % 5.8 % [facility] Monocyte Abs 0.9 0.3 - 0.9 x10(3)/mc L [facility] Eos % 38.3 % [facility] Eosinophils Abs 5.8(H) 0.0 - 0.4 x10(3)/mc L [facility] Basophil % 0.6 % [facility] Baso Absolute 0.1 0.0 - 0.1 x10(3)/[facility] Immature Gran % 0.20 % [place] [...] 0.00 - 0.04 x10(3)/[facility] Blood specimen (specimen) 07/28/2018 3:54 AM EDT 07/28/2018 4:10 AM EDT Narrative Resulting Agency Comment Spec In Lab Deonna Rasheed APRN HEMATOLOGY ORDERAB LES Performing Organization Address City/State/[facility] Co de Phone Number [facility] [place] [address] * (ABNORMAL) Hemogram (07/28/2018 3:54 AM EDT) White Blood Cell 15.0(H) 4.0 - 9.5 x10(3)/[facility] LABORATORY Red Blood Cell 5.08 4.58 - 5.54 x10(6)/[facility] LABORATORY Hemoglobin 16.3 13.7 - 16.5 [...] Platelet 203 145 - 357 x10(3)/ L [facility] RDW Standard Deviation 42.5 36.0 - 45.0 fL [facility] RDW coefficient of variation 12.6 11.4 - 13.8 % [facility] Mean Platelet Volume 11.0 7.6 - 12.9 fL [facility] NRBC% auto 0.0 % [facility] NRBC Absolute 0.000 0.000 - 0.000 x10(3)/mc L [facility] Blood specimen (specimen) 07/28/2018 3:54 AM EDT 07/28/2018 4:10 AM EDT Narrative Resulting Agency Comment Spec In Lab Deonna Rasheed APRN HEMATOLOGY ORDERAB LES Performing Organization Address [facility] Co de Phone Number [facility] [place] [address] * Magnesium (07/28/2018 3:54 AM EDT) Magnesium 0.86 0.69 - 1.07 mmol/L [facility] Blood specimen (specimen) 07/28/2018 3:54 AM EDT 07/28/2018 4:10 AM EDT Narrative Resulting Agency Comment Spec In Lab Deonna Rasheed APRN CHEMISTRY ORDERABL ES Performing Organization Address [facility] de Phone Number [facility] [place] [address] * (ABNORMAL) BMP w/fasting Glucose (07/28/2018 3:54 [...] of Diabetes Mellitus, Position Statement from the [place] Diabetes Association. ??Diabetes Care, Volume 33, Supplement [...] of body mass or the acutely ill. http://[employer]/[facility] eGFR 102 >=60 mL/min/1. 73 m?? [facility] Comment: The eGFR was calculated using the CKD-EPI equation. As with all creatinine based estimates of kidney function, eGFR values calculated with the CKD-EPI equation are not accurate in patients with acute kidney failure, extremes of body mass or the acutely ill. http://[employer]/[facility] Blood specimen (specimen) 07/28/2018 3:54 AM EDT 07/28/2018 4:10 AM EDT Narrative Resulting Agency Comment Spec In Lab Deonna Rasheed PUBLICATIONS EDITOR CHEMISTRY ORDERABL ES [facility] [place] [address] * CARDIAC CATHETERIZATION (07/27/2018 11:30 AM EDT) Anatomical Region Laterality Modality Other Narrative 07/27/2018 11:39 AM EDT ?[facility] ? Cardiac Catheterization/Intervention Report ? Patient Name: Agata Flores Zaki. ? Procedure Date: 07/27/2018 ? A #: [id number] ? Primary Physician: Min Jeffery ? Case #: [id number] ? File Name: [id number] ? Catheterization Order Number: [id number] ? [facility] ? Final Report [place], [place] ? Patient Name: ? Agata Flores ?ID#: ?[id number] ? : ?1945 ? Procedure Date: ? July 27, 2018 ?Case #: ? [id number] ? Room: ? 1 ? Case Physician: [...] presented with: unstable angina (w/i 60 days). [place] ?Cardiovascular Society angina class was III. This [...] heart catheterization ?was performed utilizing a 7Fr [place]aila catheter. 5,000 units of heparin ?were administered. [...] Note Min Jeffery II, MD - 09/02/2018 [facility] Cardiac Catheterization/Intervention Report Patient Name: Agata FloresBryant Procedure Date: 07/27/2018 A #: [id number] Primary Physician: Min Jeffery Case #: [id number] File Name: [id number] Catheterization Order Number: [id number] [facility] FinalReport [place], [place] Patient Name: Agata Flores ID#:[id number] :1945 Procedure Date: July 27, 2018 Case [...] presented with: unstable angina (w/i 60 days). [place] Cardi[employer] Society angina class was III. This [...] Right heartcatheterization was performed utilizing a 7Fr [place]-Naila catheter. 5,000 units ofheparin were administered. A total of 100cc of Omnipaque were opened [id number] of Omnipaque were administered. Radiation: Fluoro time [...] ?YOAN Haines ?(Age): 1945(72y) Med Rec#: ? [id number] ?Sex: ?M ? Site Loc: ? [facility] ?Ht / Wt: ??188(cm)/99(kg) Pt. Loc: ?Adult Floor ? BSA: ?2.26 Study Date: ?? 07/27/2018 ?Pt. Type: Inpatient Tape: ? Referring: JAZMIN Reading: Gamaliel Sotelo ([id number]) [employer] Ha[employer] Driver: Sander Houser [facility] Diagnosis: *Chest pain, unspecified (R07.9) [...] ? Mid-Inferior ?Normal ? Mid-Inferoseptal ?Normal ? [place]-Septal ? Normal ? [place]-Anterior ? Normal ? [place]-Lateral ?Normal ? [place]-Inferior ? Normal ? [place]-Tip ?Normal ? This report has been electronically signed by: Gamaliel Sotelo MD ? 07/27/2018 09:26:48 Images reviewed and interpretation verified [facility] Cardiac Ultrasound Laboratory Procedure Note Gamaliel Sotelo MD - 07/27/2018 Procedure: Transthoracic Echocardiogram Patient: YOAN AVELAR(Age): 1945(72y) Med Rec#: [id number] Sex: M Site Loc: [facility] Ht / Wt: 188(cm)/99(kg) Pt. Loc: Adult Floor BSA: 2.26 Study Date: 07/27/2018 Pt. Type: Inpatient Tape: Referring: JAZMIN Reading: Gamaliel Sotelo ([id number]) [employer] Ha[employer] Driver: Sander Houser RDCS Diagnosis: *Chest pain, unspecified [...] Normal Mid-Posterolateral Normal Mid-Inferior Normal Mid-Inferoseptal Normal [place]-Septal Normal [place]-Anterior Normal [place]-Lateral Normal [place]-Inferior Normal [place]-Tip Normal This report has been electronically signed by: Gamaliel Sotelo MD 07/27/2018 09:26:48 Images reviewed and interpretation verified [facility] Cardiac Ultrasound Laboratory Deonna Rasheed APRN ECHO ORDERABLES * EKG 12 Lead (07/27/2018 7:24 AM EDT) Ventricular rate 75 BPM MUSE SYSTEM Atrial Rate 166 BPM MUSE SYSTEM QRS Duration 76 ms MUSE SYSTEM Q-T Interval 382 ms MUSE SYSTEM QTC Calculated (Bezet) 426 ms MUSE SYSTEM Calculated R Blakeslee 12 degrees MUSE SYSTEM Calculated T Blakeslee 112 degrees MUSE SYSTEM INTERPRETATION Atrial fibrillation Abnormal ECG When compared with ECG of 26-JUL-2018 11:14, No significant change was found I personally reviewed the tracing and edited the fellows interpretation Confirmed by fellow MD Langley Daniel ([id number]) on 07/27/2018 11:57:52 AM Confirmed by Denys Miller MD ([id number]) on 07/27/2018 2:50:48 PM MUSE SYSTEM 07/27/2018 7:24 AM EDT 07/27/2018 2:50 PM EDT Deonna T Kathya PUBLICATIONS EDITOR ECG ORDERABLES MUSE SYSTEM * (ABNORMAL) Differential, Automated (07/27/2018 3:46 AM EDT) Neutrophil % 34.6 % [facility] Neutrophil Absolute 5.07 1.70 - 6.10 x10(3)/mc L [facility] Lymph % 18.7 % [facility] Lymphocytes Abs 2.7 0.9 - 3.2 x10(3)/mc L [facility] Monocyte % 5.5 % [facility] Monocyte Abs 0.8 0.3 - 0.9 x10(3)/mc L [facility] Eos % 40.5 % [facility] Eosinophils Abs 5.9(H) 0.0 - 0.4 x10(3)/mc L [facility] Basophil % 0.6 % [facility] Baso Absolute 0.1 [...] Absolute 0.02 0.00 - 0.04 x10(3)/mc L [facility] Blood specimen (specimen) 07/27/2018 3:46 AM EDT 07/27/2018 4:06 AM EDT Narrative Resulting Agency Comment Spec In Lab Deonna Rasheed PUBLICATIONS EDITOR HEMATOLOGY ORDERAB LES Performing Organization Address City/State/[facility] Co de Phone Number [facility] [place] [address] * (ABNORMAL) Hemogram (07/27/2018 3:46 AM EDT) White Blood Cell 14.7(H) 4.0 - 9.5 x10(3)/[facility] LABORATORY Red Blood Cell 4.89 4.58 - 5.54 x10(6)/[facility] LABORATORY Hemoglobin 15.7 13.7 - 16.5 [...] HOSPITAL LABORATORY Platelet 207 145 - 357 x10(3)/[facility] LABORATORY RDW Standard Deviation 41.4 36.0 - 45.0 [facility] LABORATORY RDW coefficient of variation 12.6 11.4 - 13.8 % [facility] Mean Platelet Volume 10.7 7.6 - 12.9 [facility] LABORATORY NRBC% auto 0.0 % [facility] NRBC Absolute 0.000 0.000 - 0.000 x10(3)/ L [facility] Blood specimen (specimen) 07/27/2018 3:46 AM EDT 07/27/2018 4:06 AM EDT Narrative Resulting Agency Comment Spec In Lab Deonna Eneida Kathya PUBLICATIONS EDITOR HEMATOLOGY ORDERAB LES Performing Organization Address [facility]/ZIP Co de Phone Number [facility] [place] [address] * Magnesium (07/27/2018 3:46 AM EDT) Magnesium 0.86 0.69 - 1.07 mmol/L [facility] Blood specimen (specimen) 07/27/2018 3:46 AM EDT 07/27/2018 4:06 AM EDT Narrative Resulting Agency Comment Spec In Lab Deonna Wooddor PUBLICATIONS EDITOR CHEMISTRY ORDERABL ES Performing Organization Address [facility] Co de Phone Number [facility] [address] * (ABNORMAL) BMP w/fasting Glucose (07/27/2018 3:46 [...] of Diabetes Mellitus, Position Statement from the [place] Diabetes Association. ??Diabetes Care, Volume 33, Supplement [...] of body mass or the acutely ill. http://[employer]/[facility]nk[facility] eGFR 99 >=60 mL/min/1. 73 m?? [facility] Comment: The eGFR was calculated using the CKD-EPI equation. As with all creatinine based estimates of kidney function, eGFR values calculated with the CKD-EPI equation are not accurate in patients with acute kidney failure, extremes of body mass or the acutely ill. http://[employer]/[facility] Blood specimen (specimen) 07/27/2018 3:46 AM EDT 07/27/2018 4:06 AM EDT Narrative Resulting Agency Comment Spec In Lab Deonna Rasheed APRN CHEMISTRY ORDERABL ES [facility] [address] * Cardiac Enzymes (LEB/CGP) (07/26/2018 10:30 PM EDT) Troponin-T <0.01 0.00 - 0.00 ng/mL [facility] Comment: The 99th percentile for Troponin T is less than 0.01 ng/mL, any detectable cTnT concentration using this assay should be considered elevated. According to the third universal definition of myocardial infarction the following criteria with a clinical presentation consistent with acute myocardial ischemia meets the diagnosis for a myocardial infarction (MS). Detection of a rise and/or fall of cTnT, with at least one value greater than the 99th percentile (> or = 0.01) and with at least one of the following ?? Symptoms of ischemia ?? New or presumed new significant VQ-tqbfcgl-C wave (ST-T) changes or new left bundle [...] additional sample may be indicated. Reference: Third Mcrae Definition of Myocardial Infarction. Journal of the [place] College of Cardiology 2012;60:1581-98 Creatine Kinase 23 0 - 200 unit/L [facility] Blood specimen (specimen) 07/26/2018 10:30 PM EDT 07/26/2018 11:04 PM EDT Narrative Resulting Agency Comment Spec In Lab Deonna Rasheed APRN CHEMISTRY ORDERABL ES [facility] [place] [address] * Cardiac Enzymes (LEB/CGP) (07/26/2018 4:31 PM EDT) Troponin-T <0.01 0.00 - 0.00 ng/mL [facility] Comment: The 99th percentile for Troponin T is less than 0.01 ng/mL, any detectable cTnT concentration using this assay should be considered elevated. According to the third universal definition of myocardial infarction the following criteria with a clinical presentation consistent with acute myocardial ischemia meets the diagnosis for a myocardial infarction (MS). Detection of a rise and/or fall of cTnT, with at least one value greater than the 99th percentile (> or = 0.01) and with at least one of the following ?? Symptoms of ischemia ?? New or presumed new significant YU-hvarwtu-A wave (ST-T) changes or new left bundle [...] additional sample may be indicated. Reference: Third Mcrae Definition of Myocardial Infarction. Journal of the [place] College of Cardiology 2012;60:1581-98 Creatine Kinase 22 0 - 200 unit/L [facility] Blood specimen (specimen) 07/26/2018 4:31 PM EDT 07/26/2018 4:48 PM EDT Narrative Resulting Agency Comment Spec In Lab Deonna Rasheed APRN CHEMISTRY ORDERABL ES [facility] [place] [address] * Hemoglobin A1c (07/26/2018 11:44 AM EDT) [...] Mellitus, Diabetes Care 2013; 36: Suppl. 1, S67-50 Estimated Average Glucose See note mg/dL [facility] [...] into estimated average glucose values. ??Diabetes Care 2008:31(8):0403-1934. Blood specimen (specimen) Venous Draw / Unknown 07/26/2018 11:44 AM EDT 07/26/2018 12:50 PM EDT Narrative Resulting Agency Comment Spec In Lab Deonna Rasheed APRN CHEMISTRY ORDERABL ES Performing Organization Address [facility] Co de Phone Number [facility] [place] [address] * TSH (07/26/2018 11:44 AM EDT) [facility] Thyroid Stimulating Hormone 3.98 0.27 - 4.20 mlU/ML [facility] Blood specimen (specimen) Venous Draw / Unknown 07/26/2018 11:44 AM EDT 07/26/2018 11:52 AM EDT Narrative Resulting Agency Comment Spec In Lab Deonna Rasheed APRN CHEMISTRY ORDERABL ES Performing Organization Address [facility] Co de Phone Number [facility] [place] [address] * Scan, Peripheral Blood (07/26/2018 11:44 AM EDT) [facility] estimate Normal [facility] RBC Morphology Normal [facility] Blood specimen (specimen) 07/26/2018 11:44 AM EDT 07/26/2018 11:49 AM EDT Narrative Resulting Agency Comment Spec In Lab Janet Myesha ALMONTE HEMATOLOGY ORDERABLE S [facility] [place] [address] * (ABNORMAL) Differential, Automated (07/26/2018 11:44 AM EDT) Neutrophil % 43.7 % [facility] Neutrophil Absolute 6.32(H) 1.70 - 6.10 x10(3)/ L [facility] Lymph % 11.7 % [facility] Lymphocytes Abs 1.7 0.9 - 3.2 x10(3)/[facility] LABORATORY Monocyte % 5.7 % [facility] Monocyte Abs 0.8 0.3 - 0.9 x10(3)/ L [facility] Eos % 38.1 % [facility] Eosinophils Abs 5.5(H) 0.0 - 0.4 x10(3)/[facility] LABORATORY Basophil % 0.5 % [facility] Baso Absolute 0.1 0.0 - 0.1 x10(3)/ L [facility] Immature Gran [...] Absolute 0.04 0.00 - 0.04 x10(3)/ L [facility] Blood specimen (specimen) 07/26/2018 11:44 AM EDT 07/26/2018 11:49 AM EDT Narrative Resulting Agency Comment Spec In Lab Janet ALMONTE HEMATOLOGY ORDERABLE S [facility] [address] * (ABNORMAL) Hemogram (07/26/2018 11:44 AM EDT) White Blood Cell 14.4(H) 4.0 - 9.5 x10(3)/mc L [facility] Red Blood Cell 4.73 4.58 - 5.54 x10(6)/mc L [facility] Hemoglobin 14.9 13.7 - 16.5 gm/dL [facility] Hematocrit 43.2 40.5 - 48.5 % [facility] Mean Cell Volume 91.3 82.9 - 93.1 [facility] LABORATORY Mean Cell Hemoglobin 31.5 27.5 - 32.1 pg [facility] Mean Cell Hemoglobin Concentration 34.5 32.0 - 35.7 gm/dL [facility] Platelet 209 145 - 357 x10(3)/mc L [facility] RDW Standard Deviation 41.9 36.0 - 45.0 [facility] LABORATORY RDW coefficient of variation 12.7 11.4 - 13.8 % [facility] Mean Platelet Volume 11.1 7.6 - 12.9 [facility] LABORATORY NRBC% auto 0.0 % [facility] NRBC Absolute 0.000 0.000 - 0.000 x10(3)/mc L [facility] Blood specimen (specimen) 07/26/2018 11:44 AM EDT 07/26/2018 11:49 AM EDT Narrative Resulting Agency Comment Spec In Lab Janet ALMONTE HEMATOLOGY ORDERABLE S [facility] [address] * APTT (07/26/2018 11:44 AM EDT) Partial [...] MD HEMATOLOGY ORDERABLE S Performing Organization Address [facility] Co de Phone Number [facility] [address] * (ABNORMAL) Prothrombin Time (07/26/2018 11:44 AM [...] MD HEMATOLOGY ORDERABLE S Performing Organization Address City/[facility]/ZIP Co de Phone Number [facility] [place] [address] * (ABNORMAL) pro-Brain Natriuretic Peptide (07/26/2018 11:44 AM EDT) NT-proBNP 453(H) <=125 pg/mL [facility] Blood specimen (specimen) 07/26/2018 11:44 AM EDT 07/26/2018 11:49 AM EDT Narrative Resulting Agency Comment Spec In Lab Cameron Mahmood MD CHEMISTRY ORDERABLES Performing Organization Address [facility]/ZIP Co de Phone Number [facility] [address] * Cardiac Enzymes (LEB/CGP) (07/26/2018 11:44 AM EDT) Troponin-T <0.01 0.00 - 0.00 ng/mL [facility] Comment: The 99th percentile for Troponin T is less than 0.01 ng/mL, any detectable cTnT concentration using this assay should be considered elevated. According to the third universal definition of myocardial infarction the following criteria with a clinical presentation consistent with acute myocardial ischemia meets the diagnosis for a myocardial infarction (MS). Detection of a rise and/or fall of cTnT, with at least one value greater than the 99th percentile (> or = 0.01) and with at least one of the following ?? Symptoms of ischemia ?? New or presumed new significant CW-eimwpnm-U wave (ST-T) changes or new left bundle [...] additional sample may be indicated. Reference: Third Mcrae Definition of Myocardial Infarction. Journal of the [place] College of Cardiology 2012;60:1581-98 Creatine Kinase <20 0 - 200 unit/L [facility] Blood specimen (specimen) 07/26/2018 11:44 AM EDT 07/26/2018 11:49 AM EDT Narrative Resulting Agency Comment Spec In Lab Deonna Rasheed APRN CHEMISTRY ORDERABL ES Performing Organization Address City/[facility]/ZIP Co de Phone Number [facility] [address] * Basic Metabolic Panel (non-fasting) (07/26/2018 11:44 [...] of body mass or the acutely ill. http://[employer]/[facility]nkf eGFR 102 >=60 mL/min/1. 73 m?? [facility] Comment: The eGFR was calculated using the CKD-EPI equation. As with all creatinine based estimates of kidney function, eGFR values calculated with the CKD-EPI equation are not accurate in patients with acute kidney failure, extremes of body mass or the acutely ill. http://[employer]/[facility]nkf Blood specimen (specimen) 07/26/2018 11:44 AM EDT 07/26/2018 11:49 AM EDT Narrative Resulting Agency Comment Spec In Lab Cameron Mahmood MD CHEMISTRY ORDERABLES [facility] [place] [address] * EKG 12 Lead (07/26/2018 11:14 AM EDT) Ventricular rate 93 BPM MUSE SYSTEM Atrial Rate 86 BPM MUSE SYSTEM QRS Duration 76 ms MUSE SYSTEM Q-T Interval 366 ms MUSE SYSTEM QTC Calculated (Bezet) 455 ms MUSE SYSTEM Calculated R Blakeslee 30 degrees MUSE SYSTEM Calculated T Blakeslee 83 degrees MUSE SYSTEM INTERPRETATION Atrial fibrillation with premature ventricular or aberrantly conducted complexes Abnormal ECG No previous ECGs available Confirmed by MD Maki Kevin ([id number]) on 07/26/2018 6:28:42 PM MUSE SYSTEM 07/26/2018 11:1 4 AM EDT 07/26/2018 6:28 PM EDT Cameron Mahmood MD ECG ORDERABLES Performing Organization Address City/[facility]/ZIP Co de Phone Number MUSE SYSTEM * SCAN DOC: COIL SPRING ASSEMBLER (07/26/2018 12:00 AM EDT) Anatomical Region Laterality [...] nefazodone, norfloxacin, quinine, zafrilukast (inhibitors of cytochrome [id number]) may increase dofetilide levels; consider decreasing the [...] area)1200 (Automatically Held - Provider: Admin Adt)1217 ([facility] Unhold - Provider: Admin Adt)1801 (Given - Provider: Amadeo Espinosa RN) 0015 (Given - Provider: Jordon Cat RN)0639 (Given - Provider: Jordon Cat RN)1205 (Given - Provider: Amadeo Espinosa, MROIAH)1724 (Given - Provider: Amadeo Espinosa RN) 0016 [...] Approved indication of non-valvular atrial fibrillation 1054 ([facility] Hold - Provider: Admin Adt - Reason: Transfer to a Procedural area)1116 ([facility] Unhold - Provider: Admin Adt)1155 ([facility] Hold - Provider: Admin Adt - Reason: Transfer to a Procedural area)1217 ([facility] Unhold - Provider: Admin Adt)1654 (Given - Provider: Amadeo Espinosa RN) 1723 (Given - Provider: Amadeo Espinosa, RN) rosuvastatin (CRESTOR) tablet 10 mg 10 mg, Oral, EVERY EVENING, First dose (after last modification) on Fri07/26/18 at 1700, Until Discontinued, Routine 1054 ([facility] Hold - Provider: Admin Adt - Reason: Transfer to a Procedural area)1116 ([facility] Unhold - Provider: Admin Adt)1155 ([facility] Hold - Provider: Admin Adt - Reason: Transfer to a Procedural area)1217 ([facility] Unhold - Provider: Admin Adt)1654 (Given - Provider: Amadeo Espinosa RN) 1723 (Given - Provider: Amadeo J Jesús, RN) timolol (TIMOPTIC) 0.5 % ophthalmic solution 1 drop(Linked Group 1) 1 drop, Both Eyes, 2 TIMES DAILY, First dose on 07/26/18 at 2100, Until Discontinued, Routine 0810 (Given - Provider: Amadeo Espinosa RN)1054 ([facility] Hold - Provider: Admin Adt - Reason: Transfer to a Procedural area)1116 ([facility] Unhold - Provider: Admin Adt)1155 ([facility] Hold - Provider: Admin Adt - Reason: Transfer to a Procedural area)1217 ([facility] Unhold - Provider: Admin Adt)2120 (Given - Provider: Jordon Cat, MORIAH) 0831 (Given - Provider: Amadeo Espinosa, RN)212 (Given - Provider: Mally Malcolm, MORIAH) 0909 (Given - Provider: Holly Alexandre, MORIAH) Continuous Medication Order 07/30/2018 07/31/2018 08/01/2018 sodium chloride 0.9% infusion (CANCELED) 100 mL/hr, Intravenous, CONTINUOUS, Starting on Fri07/29/18 at 1115, Until Tash 07/30/18 at 1651, Please give 1 L total 1007 (New Bag - Provider: Amadeo Espinosa RN)1054 ([facility] Hold - Provider: Admin Adt - Reason: Transfer to a Procedural area)1116 ([facility] Unhold - Provider: Admin Adt)1149 (Stopped - Provider: Amadeo Espinosa RN)1154 (New Bag - Provider: Lalo Forrester CRNA)1155 ([facility] Hold - Provider: Admin Adt - Reason: Transfer to a Procedural area)1217 ([facility] Unhold - Provider: Admin Adt) PRN Medication Order 07/30/2018 07/31/2018 08/01/2018 acetaminophen (TYLENOL) tablet 650 mg 650 mg, Oral, EVERY 4 HOURS PRN, Starting on 07/26/18 at 1242, Until 08/01/18 at 1705, Pain, Headaches, Maximum dose of acetaminophen is 4000 mg from all sources in 24 hours., Routine 1054 ([facility] Hold - Provider: Admin Adt - Reason: Transfer to a Procedural area)1116 ([facility] Unhold - Provider: Admin Adt)1155 ([facility] Hold - Provider: Admin Adt - Reason: Transfer to a Procedural area)1217 ([facility] Unhold - Provider: Admin Adt) [...] Routine documented in this encounter Care Teams [employer] Education Director Relationship Specialty Start Date End Date Agata Barrera DO [address] [place] [address] PCP - General Family Medicine 07/01/18 documented as of this encounter
--- OUTSIDE RECORDS SUMMARY | 2024-09-25 08:44 | XMS_ITS | Encounter Summary ---
Author Organization [facility] [place] [address] Care Team Providers Care Manager Review Name Role Phone Camacho Irwin MD Primary Care Provider [phone] Encounter Details Date Type Department Care Team (Late st Contact Info) Description 03/16/2015 External Results [place] [address] Sharad Lazaro MD [facility] [place] [address] Social History Tobacco Use Types Packs/Day Years [...] Platelet 201(Exter nal Lab) Sedimentation Rate Automated 38(HOURLY ASSOCIATE AL/ABN) C-Reactive Protein High Sensitivity 5.1(EXTER NAL/ABN) Blood Urea Nitrogen 19(HOURLY ASSOCIATE AL/ABN) Creatinine 0.9(Exter nal Lab) Sodium 141(Exter nal Lab) 137 - 147 Potassium 3.9(Exter nal Lab) 3.4 - 5.3 03/13/2015 Historical Provider POINT OF CARE RAMONITA T ORDERABLES documented in this encounter Visit Diagnoses Not on filedocumented in this encounter Care Teams Manager Review Relationship Specialty Start Date End Date Camacho Irwin MD [address] [facility] [address] [address] [place] [address] PCP - General 01/27/15 06/30/18 documented as of this encounter
--- OUTSIDE RECORDS SUMMARY | 2024-09-25 08:44 | XMS_ITS | Encounter Summary ---
Author Organization [facility] [place] [address] Care Team Providers Care Top Frame Fitter Name Role Phone Camacho Irwin MD Primary Care Provider [phone] Encounter Details Date Type Department Care Team (Latest Contact Info) Description 03/27/2015 3:57 PM EDT - 03/27/2015 11:59 PM EDT Hospital [place] [id number] CLINIC, Nino Mclean MD [facility] [place] [address] Brain abscess Discharge Disposition: Home Social History [...] is stable and generally unremarkable. Procedure Note eBn Becker MD - 03/28/2015 EXAMINATION: MR BRAIN [...] mLs documented in this encounter Care Teams Top Frame Fitter Relationship Specialty Start Date End Date Camacho Irwin MD [address] [place] [address] PCP - General 01/27/15 06/30/18 documented as of this encounter
--- OUTSIDE RECORDS SUMMARY | 2024-09-25 08:44 | XMS_ITS | Encounter Summary ---
Author Organization [facility] Address [facility] [place] [address] Care Team Providers Care Avionics Test Technician Name Role Phone Camacho Irwin MD Primary Care Provider [phone] Encounter Details Date Type Department Care Team (Latest Contact Info) Description 04/06/2015 9:27 AM EDT - 04/06/2015 11:59 PM EDT Hospital [place] [address] Nino Villa MD [facility] [place] [address] Brain abscess Discharge Disposition: Home Social History [...] (ABNORMAL) Differential, Manual (04/06/2015 9:33 AM EDT) Neutrophil % Manual 53 % CERNER MILLENNIUM Lymphocyte Manual 18 % CERNER MILLENNIUM Monocyte Manual 5 % CERN ER MILLENNIUM Eosinophil Manual 24 % CERNER MILLENNIUM Neutrophil Absolute (ANC) - Manual 4.3 1.5 - 6.3 x10(3)/mcL CERNER MILLENNIUM Neutrophil Absolute (ANC) - Automated 4.29 1.50 - 6.30 x10(3)/mcL CERNER MILLENNIUM Lymph Absolute Manual 1.5 1.0 - 3.6 x10(3)/mcL CERNER MILLENNIUM Monocyte Absolute Manual 0.4 0.2 - 1.0 x10(3)/mcL CERNER MILLENNIUM Eos Absolute Manual 1.9(H) 0.0 - 0.5 x10(3)/mcL CERNER MILLENNIUM Total Cells Ct 100 CERNE R MILLENNIUM Plat estimate Normal CERNER MILLENNIUM RBC Morphology Abnormal CERNE R MILLENNIUM Ovalocytes 1-5 /HPF CERNER MILLENNIUM Blood specimen (specimen) 04/06/2015 9:33 AM EDT 04/06/2015 9:41 AM EDT Narrative Resulting Agency Comment Spec In Lab Nino Villa MD HEMATOLOGY YONG SIMPSON CERNER TJENNIUM * Nucleated Red Blood Cells (04/06/2015 9:33 AM EDT) NRBC% auto 0.0 % CERNER MILLENNIUM NRBC Absolute 0.000 0.000 - 0.012 x10(3)/mcL CERNER MILLENNIUM Blood specimen (specimen) 04/06/2015 9:33 AM EDT 04/06/2015 9:41 AM EDT Narrative Resulting Agency Comment Spec In Lab Nino Villa MD HEMATOLOGY ORDYasmany SIMPSON Performing Organization Address [facility]/State/ZIP Co de Phone Number CERTONI SPENCERENNIUM * (ABNORMAL) Hemogram (04/06/2015 9:33 AM EDT) Pathologist [facility] White Blood Cell 8.1 4.0 - 10.0 [...] Spec In Lab Nino Villa MD HEMATOLOGY ORDYasmany SIMPSON Performing Organization Address City/[facility]/ZIP Co de Phone Number CERTONI SPENCERENNIUM * High Sensitivity CRP (04/06/2015 9:33 AM EDT) C-Reactive Protein High Sensitivity 0.6 mg/L [facility] Comment: Interpretations: 1) For accurate cardiac risk [...] MD CHEMISTRY ORDER PARK Performing Organization Address City/[facility]/ZIP Co de Phone Number [facility] * (ABNORMAL) Sedimentation rate (04/06/2015 9:33 AM EDT) Pathologist [facility] Sedimentation Rate Automated 20(H) 0 - 15 mm/hr [facility] Blood specimen (specimen) 04/06/2015 9:33 AM EDT 04/06/2015 9:41 AM EDT Narrative Resulting Agency Comment Spec In Lab Nino Villa MD HEMATOLOGY ORDE CALVIN Performing Organization Address City/[facility]/ZIP Co de Phone Number [facility] documented in this encounter Visit Diagnoses Diagnosis Brain abscess Intracranial abscess documented in this encounter Care Teams Avionics Test Technician Relationship Specialty Start Date End Date Camacho Irwin MD [address] [facility] [address] PCP - General 01/27/15 06/30/18 documented as of this encounter
--- OUTSIDE RECORDS SUMMARY | 2024-09-25 08:44 | XMS_ITS | Encounter Summary ---
[place] [address] Care Team Providers Care Cell Lead Name Role Phone Camacho Barrera DO Primary Care Provider [phone] Encounter Details Date Type Department Care Team (Late st Contact Info) Description 07/24/2018 External Results [address] [place] [id number] Social History Tobacco Use Types Packs/Day Years [...] Scan Doc: ECG (07/24/2018) Historical Provider MD COULTER MGR SCAN EX T ORDR/RSLT documented in this encounter Visit Diagnoses Not on filedocumented in this encounter Care Teams Cell Lead Relationship Specialty Start Date End Date Camacho Barrera DO [address] [place] [address] PCP - General Family Medicine 07/01/18 documented as of this encounter
--- OUTSIDE RECORDS SUMMARY | 2024-09-25 08:44 | XMS_ITS | Encounter Summary ---
Author Organization [facility] [place] [address] Care Team Providers Care Food And Beverage Intern Name Role Phone Camacho Irwin MD Primary Care Provider [phone] Encounter Details Date Type Department Care Team (Late st Contact Info) Description 03/22/2015 Orders [place] [address] Nino Villa MD [facility] [place] [address] Social History Tobacco Use Types Packs/Day Years [...] on filedocumented in this encounter Care Teams Food And Beverage Intern Relationship Specialty Start Date End Date Camacho Irwin MD [address] [place] [address] PCP - General 01/27/15 06/30/18 documented as of this encounter
--- OUTSIDE RECORDS SUMMARY | 2024-09-25 08:44 | XMS_ITS | Encounter Summary ---
[place] [address] Care Team Providers Care Non Destructive Testing Specialist Name Role Phone Camacho Barrera DO Primary Care Provider [phone] Reason for Visit * Auth/Cert Specialty Diagnoses / Procedures Referred By Contac t Referred To Contact Diagnoses Chest pain ANGINA ?CAD Procedures CARDIAC CATHETERIZATION URG IPI Referral ID Status Reason Start Date Expiration Date Visits Re quested Visits Authorized [id number] 1 1 Encounter Details Date Type Department Care Team (Late st Contact Info) Description 07/29/2018 2:15 PM EDT Anesthesia [place] [address] Faith Del Rosario MD [facility] [place] [address] Emily Tobias Anesthesia Record Procedure Summary Procedure [...] basilic vein (medial side of arm), left; [id number] catheter system; 20 gauge, 1 in length; [...] Brunner MD - 07/29/2018 3:21 PM EDT [facility] Department of Anesthesiology Post-procedure Note Patient: Camacho Flores Procedure Summary Date Anesthesia Start Anesthesia Stop Room / Location 07/29/18 1415 1521 [facility] / [facility] Procedure Diagnosis Provider Responsible Provider TRANSESOPHAGEAL ECHO DURING CATH/EP PROCEDURE (N/A ) (?CAD) Ant Suarez MD Franko, Denise M, MD All Anesthesia Providers: Anesthesiologist: Faith Del Rosario MD Cnc Wood Lathe Operator: Shawna Brunner MD Most Recent Vitals: 07/29/18 [...] a 72 y.o. male. Procedure(s): TRANSES[facility]HAGEAL [facility]ARDIOGRAM ([facility] Patient Active Problem List Diagnosis ??? [...] W/SCAN performed by Jose Small MD at [facility] MAIN OR ??? PRO STEREOTACTIC CPTR ASSTD PX CRANIAL, INTRADURAL Right 01/27/2015 STEREOTACTIC COMPUTER-ASSTD NAVIGATIONAL CRANIAL INTRADURAL performed by Jose Small MD at [facility] MAIN OR Social History Substance Use [...] risks discussed with patient. Plan discussed with ADMITTING SUPERVISOR, resident and attending. PAT Staff Note documented [...] mg documented in this encounter Care Teams Non Destructive Testing Specialist Relationship Specialty Start Date End Date Camacho Barrera DO [address] [place] [address] PCP - General Family Medicine 07/01/18 documented as of this encounter
--- OUTSIDE RECORDS SUMMARY | 2024-09-25 08:44 | XMS_ITS | Encounter Summary ---
[place] [address] Care Team Providers Care Crankshaft Straightener Name Role Phone Camacho Irwin MD Primary Care Provider [phone] Reason for Visit * Reason Comments Follow-up Encounter Details Date Type Department Care Team (Late st Contact Info) Description 04/06/2015 11:00 AM EDT Follow-[place] [phone] Gaudencio Mata MD [facility] [place] [address] Brain abscess Discharge Disposition: Home Social History [...] suspicious for metastasis so was transferred to [facility] for definitive management.At [facility] neurosurgery eval s/p OR with stereotactic [...] service will sign off for now,please call [phone] with questions Case Discussed with Dr Tejas Mata MD Infectious disease Fellow Pager [phone] ID Attending I reviewed the patient's history [...] abscess documented in this encounter Care Teams Crankshaft Straightener Relationship Specialty Start Date End Date Camacho Irwin MD [address] [place] [address] PCP - General 01/27/15 06/30/18 documented as of this encounter
--- OUTSIDE RECORDS SUMMARY | 2024-09-25 08:44 | XMS_ITS | Encounter Summary ---
[place] [address] Care Team Providers Care Clay Dry Press Helper Name Role Phone Agata Barrera DO Primary Care Provider [phone] Reason for Visit * Auth/Cert Specialty Diagnoses / Procedures Referred By Contac t Referred To Contact Diagnoses Chest pain ANGINA ?CAD Procedures CARDIAC CATHETERIZATION URG IPI Referral ID Status Reason Start Date Expiration Date Visits Re quested Visits Authorized [id number] 1 1 Encounter Details Date Type Department Care Team (Late st Contact Info) Description 07/27/2018 9:00 AM EDT - 07/27/2018 10:00 AM ED[place] [address] Min Jeffery II, MD [facility] [place] [address] CARDIAC CATHETERIZATION Social History Tobacco Use Types [...] Agata Flores Patient Age: 72 y.o. Language: Belarusian Race: White Ethnicity: Not nor Admit date: [...] [facility] can be reached at [phone] Discharge Diagnoses (Hospital Problems) and Secondary Diagnoses [...] abx treatment in 2014) who presented to [facility] with progressive dyspnea and lightheadedness on [...] presumed to be in sinus rhythm. His business solutions analyst, Dr. Ma, had also scheduled him for an outpatient nuclear stress test to be done in the coming weeks. On Friday, 07/24, he had an episode of chest pressure, occurring with his shortness of breath and lightheadedness on exertion. It was relieved with rest. He went to [facility] ED and was in a-fib with HR 80. Troponins were negative, EKG was without concerning findings. He was admitted to await transfer to [facility] for cardiac catheterization, given his history of ASCVD. He had one additional episode of chest pressure on exertion while at [facility], when he had gotten up to [...] past. He was started on aspirin at [facility] without side effects. Hospital Course: Chest pressure, with h/o ASCVD The patient ruled out for NSTEMI with negative troponin x3, however symptoms were concerning for his anginal equivalent. ECG showed no acute ST changed. Echo showed EF 61% without wall motion abnormalities. Given the patient???s risk factors and presentation, it was decided to proceed with coronaryangiography. He went to the director geophysical laboratory for a diagnostic cath, which showed non-obstructive CAD. Access was via the right radial artery, the site was clean, dry, and intact on day of discharge. He was discharged on aspirin 81mg daily, metoprolol, statin, and SL nitro prn. ?? Persistent a-fib, rate controlled The patient was in controlled a-fib, HR in 80s, on admission. His [id number] score is 3 (age, HTN,CAD). Rivaroxaban had [...] appointments: During 8am-5pm Friday through Friday call [phone] to speak with a nurse in the cardiology clinic All other times call [phone] and ask to speak to the finisher fine diamond dies acquisitions logistics analyst. Return to work: as needed Driving: as needed Follow up Appointments: PCP Agata Barrera DO [phone] to see you in a week. Please [...] appointments: During 8am-5pm Friday through Friday call [phone] to speak with a nurse in the cardiology clinic All other times call [phone] and ask to speak to the finisher fine diamond dies acquisitions logistics analyst. Return to work: as needed Driving: as needed Follow up Appointments: PCP Agata Barrera DO [phone] to see you in a week. Please [...] Progress Note Patient Name: Agata Flores Service: OUTSIDE SALES MANAGER / PA Responsible Attending: Ant Suarez [...] abx treatment in 2014) who presented to [facility] with progressive dyspnea and lightheadedness on [...] 80-100s since admission, currently in A. fib [id number] Score: 3 (age, HTN, CAD) Continue metoprolol [...] MD Kelly H. LaFlamme, PA 08/01/2018 Pager [phone] 08/01/2018 I have seen the patient and [...] Intervention: Diet Order Diet Order: [facility] Appetite: Good Food allergies: NKFA Chewing/Swallowing [...] seen regarding Nutrition Education - [facility] diet. Patient reported a good appetite [...] 1:56 PM EDT CM verified with pharmacy [facility]. It does not require prior authorization and the copay is 5 dollars. Corazon Allen RN CM Pager [phone] * Josh Muir PA - 07/31/2018 10:45 AM EDT Cardiac Electrophysiology Progress Note Attending: Frde Maki MD Problem List: Patient Active Problem [...] ischemia. He was transferred to [facility] for cardiac catheterization which revealed non-obstructive CAD. [...] of patient and formulation of plan Pager: [phone] Associated attestation - Fred Maki MD - 07/31/2018 3:24 PM EDT Patient seen and examined. Pertinent data (jani. ECGs) reviewed. Plan agreed with. Fred Maki MD, PhD, [facility] Cardiac Electrophysiology 07/31/2018 3:24 PM * Ant Suarez MD - 07/31/2018 10:35 AM EDT Images from the original note were not included. Inpatient Cardiology Progress Note Patient Name: Agata Flores Service: OUTSIDE SALES MANAGER / PA Responsible Attending: Ant Suarez [...] abx treatment in 2014) who presented to [facility] with progressive dyspnea and lightheadedness on [...] team and currently had plans for a NNEO and antiarrhythmic drug load. Unfortunately this plan [...] 80-100s since admission, currently in A. fib [id number] Score: 3 (age, HTN, CAD) Continue metoprolol [...] MD Kelly H. LaFlamme, PA 07/31/2018 Pager [phone] 07/31/2018 I have seen the patient and [...] (NENO/CT/pre-op PPI etc) Fred Maki MD, PhD, [facility] Cardiac Electrophysiology * Corazon Allen, MORIAH - 07/30/2018 11:07 AM EDT CM continues to monitor for post hospital needs. Potential DC Friday. Pt started on Tikosyn po (consider possible preauth for medication). No home care needs identified. Corazon Allen RN Pager [phone] * Elena HooksJOSE - 07/30/2018 9:01 AM EDT Inpatient Cardiology Progress Note Patient Name: Agata Flores Service: OUTSIDE SALES MANAGER / PA Responsible Attending: Cameron Mahmood [...] abx treatment in 2014) who presented to [facility] with progressive dyspnea and lightheadedness on [...] 80-100s since admission, currently in A. fib [id number] Score: 3 (age, HTN, CAD) Continue metoprolol [...] Arrived from or per bed accompanied by ballroom dancer. Phase I in progress. Patient has dry cough. States tickle in thrOAT. Denies shortness of breath or chest pain. * Elena Hooks, BROOCH AND BRACELET MAKER - 07/29/2018 11:49 AM EDT Inpatient Cardiology Progress Note Patient Name: Agata Flores Service: OUTSIDE SALES MANAGER / PA Responsible Attending: Cameron Mahmood [...] abx treatment in 2014) who presented to [facility] with progressive dyspnea and lightheadedness on [...] controlled HR controlled in 80-100s since admission [id number] Score: 3 (age, HTN, CAD) Continue metoprolol [...] with pt in more detail short and intermediate accountant risk of afib ablation and drug therapy [...] clear dofetilide initiation Fred Maki MD, PhD, [facility] Cardiac Electrophysiology * Stephanie Mcgraw RN - 07/28/2018 10:43 AM EDT 0845 :Mr Flores was finishing his shower , sitting on the toilet . He stated That he began to feel dizzy , put his call light on and notified the EMPLOYMENT TRAINING SPECIALIST that he was feeling dizzy.I ran to [...] Progress Note Patient Name: Agata Flores Service: OUTSIDE SALES MANAGER / PA Responsible Attending: Cameron Mahmood [...] sitting position on the toilet by a registered nursing professor. When the registered nursing professor went to find other staff to help [...] his reports. He was evaluated by this personal lines underwriter along with Dr. Mahmood once he [...] abx treatment in 2014) who presented to [facility] with progressive dyspnea and lightheadedness on [...] controlled HR controlled in 80-100s since admission [id number] Score: 4 (age, HTN, CAD) Continue metoprolol [...] I shared this visit with Elena Jessee BROOCH AND BRACELET MAKER and guided the medical decision-making. * Deonna Rasheed, BROOCH AND BRACELET MAKER - 07/27/2018 1:28 PM EDT Inpatient Cardiology Progress Note Patient Name: Agata Flores Service: OUTSIDE SALES MANAGER / PA Responsible Attending: Cameron Mahmood [...] abx treatment in 2014) who presented to [facility] with progressive dyspnea and lightheadedness on [...] Persistent a-fib, rate controlled HR controlled in 30274n since admission [id number] Score: 4 (age, HTN, CAD) Continue metoprolol, [...] with Cameron Mahmood MD. Deonna Rasheed, MSN, TOOL AND PRODUCTION PLANNER-, JOSE 07/27/2018 Pager [phone] Associated attestation - Cameron Mahmood MD - 07/27/2018 3:58 PM EDT Cardiology Attending Addendum I shared this visit with Deonna Rasheed APRN, and guided the medical decision-making. * Min Jeffery II - 07/27/2018 11:33 AM EDT Agata Flores July 27, 2018 [phone] Surgery Attendant - Preliminary Findings Procedures: coronary angiography left [...] be: 4 (see definitions below). Definitions from [place] [employer] Health and Aging Clinical Frailty [...] with all outside activities and with minor certified ophthalmic technologist. May need help with bathing and dressing. 7: SEVERELY FRAIL: completely dependent for personal care, but stable and not at high risk of dyingwithin 6 months 8: VERY SEVERELY FRAIL: completely dependent, approaching end of life. Not likely to recover from even minor added illness 9: TERMINALLY ILL: Life expectancy of less than 6 months, even if not otherwise frail Darion Machaod M.D. (Fellow) Min Jeffery M.D. * Kalyan [...] this encounter H&P Notes * Deonna Rasheed, BROOCH AND BRACELET MAKER - 07/26/2018 11:05 AM EDT Cardiology Admission [...] abx treatment in 2014) who presented to [facility] with progressive dyspnea and lightheadedness on [...] presumed to be in sinus rhythm. His business solutions analyst, Dr. Ma, had also scheduled him for an outpatient nuclear stress test to be done in the coming weeks. On Friday, 07/24, he had an episode of chest pressure, occurring with his shortness of breath and lightheadedness on exertion. It was relieved with rest. He went to [facility] ED and was in a-fib with HR 80. Troponins were negative, EKG was without concerning findings. He was admitted to await transfer to [facility] for c ardiac catheterization, given his history of ASCVD. He had one additional episode of chest pressureon exertion while at [facility], when he had gotten up to [...] past. He was started on aspirin at [facility] without side effects. Past Medical History: Past Medical History: Diagnosis Date ??? A-fib ??? Brain abscess ??? CAD (coronary artery disease) ??? HLD (hyperlipidemia) ??? HTN (hypertension) Surgical History/Problems: Past Surgical History: Procedure Laterality Date ??? PRO STEREO BX/ASPIR/EXCIS, INTRACRANIAL LESN Right 01/27/2015 @STEREOTACTIC BX,ASP, OR EXC.-INTRACRANIAL LESION, W/SCAN performed by Jose Small MD at [facility] MAIN OR ??? PRO STEREOTACTIC CPTR ASSTD PX CRANIAL, INTRADURAL Right 01/27/2015 STEREOTACTIC COMPUTER-ASSTD NAVIGATIONAL CRANIAL INTRADURAL performed by Jose Small MD at [facility] MAIN OR Significant Family History: Family [...] at [facility], 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 REVIEW [...] abx treatment in 2014) who presented to [facility] with progressive dyspnea and lightheadedness on [...] 2018 showed EF 60-65%, no WMAs, per [facility] notes) Plan for cardiac catheterization tomorrow No plavix or heparin at this time Continue aspirin, metoprolol, statin, SL nitro prn Persistent a-fib, rate controlled HR controlled in 80s since admission [id number] Score: 4 (age, HTN, CAD) Continue metoprolol [...] with Cameron Mahmood MD. Deonna Rasheed, MSN, TOOL AND PRODUCTION PLANNER-ANDREEA, JOSE 07/26/2018 Pager [phone] Associated attestation - Cameron Mahmood MD - [...] to family to bring to [facility] pharm to ensure receipt prior to close [...] 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: MEDICARE Secondary Insurance: [id number] Prescription Coverage: yes Preferred Pharmacy: See demographics Other: n/a Primary Care Provider: Agata Barrera DO [phone] Patient/Caregiver Goals of Treatment: To figure out [...] abx treatment in 2015) who presented to [facility] with dyspnea, lightheadedness and chest pressure. ??Plan is for NENO tomorrow. Pt is independent with no home care needs identified. Plan: DC home/ Self care A member of the Care Management team will continue to monitor progress, follow for continuity of care and assist with transition of care planning. Corazon Allen RN Pager: [phone] * Consult Note - Danuta Kerr RN - 07/28/2018 9:47 AM EDT [place] [facility] RESPONSE TEAM NOTE Name: Agata Flores Age: 72 y.o. Sex; Male Date of : 1945 Responding Members: Patt Kerr RN, Carmen Goetz RCP, Karen Martin RCP, Cindy LAY Date/Time of Admission: 07/26/2018 11:01 AM Unit/Room: [facility] Service: Cardiology Time Activated: 08 Time Arrived: 0834 Time at bedside: 60 minutes Indication for Consult: LOC ASSESSMENT/INTERVENTION Brief 24 hr history: Cary gamboa received at 0831. On arrival to room, Mr. Flores found supine onbathroom floor, wedged against wall. He was awake, in care of several 4E RN's and EMPLOYMENT TRAINING SPECIALIST. No compressions had been administered. He had regular respirations, palp radial, appropriate verbal responses. Skin cool, pale quality, wet (from shower vs diaphoresis). Unprotected fall from toilet confirmed by patient and EMPLOYMENT TRAINING SPECIALIST; CTLS precautions initiated. Per patient report, he had become dizzy at end of hisshower, had seated self on toilet and pulled cord in bathroom for assist. EMPLOYMENT TRAINING SPECIALIST responded, left to obtain additional assist and on return found Mr. Flores on bathroom floor. Concern for initial status pr ompted Code Blue activation. Per report, likely full LOC as patient stated I sat on the toilet andthe next I knew I was on the floor. LOC described as brief, self resolving. planer tailer had been disconnected for Mr. Flores to [...] ischemia. He was transferred to [facility] for cardiac catheterization which revealed non-obstructive CAD. [...] Pertinent Medications: Current Facility-Administered Medications Ordered in [facility] Medication Dose Route Frequency Provider Last Rate Last Dose ??? sodium chloride 0.9% infusion 100 mL/hr Intravenous Continuous Darion Machado MD 100 mL/hr at 07/27/18 1142 100 mL/hr at 07/27/18 1142 ??? rivaroxaban (XARELTO) tablet 20 mg 20 mg Oral Daily with dinner Kathya Deonna T, BROOCH AND BRACELET MAKER ??? metoprolol tartrate (LOPRESSOR) tablet 25 mg 25 mg Oral Q6H POPPY Kathya, Deonna T, BROOCH AND BRACELET MAKER 25 mg at 07/27/18 0612 ??? aspirin EC tablet 81 mg 81 mg Oral Daily Kathya, Deonna T, BROOCH AND BRACELET MAKER 81 mg at 07/27/18 0811 ??? nitroGLYcerin (NITROSTAT) SL tablet 0.4 mg 0.4 mg Sublingual Q5 Min PRN Kathya, Deonna T, BROOCH AND BRACELET MAKER ??? acetaminophen (TYLENOL) tablet 650 mg 650 mg Oral Q4H PRN Kathya, Deonna T, BROOCH AND BRACELET MAKER ??? brimonidine (ALPHAGAN) 0.2 % ophthalmic solution 1 drop 1 drop Both Eyes BID Kathya, Deonna T,BROOCH AND BRACELET MAKER 1 drop at 07/27/18 0811 And ??? timolol (TIMOPTIC) 0.5 % ophthalmic solution 1 drop 1 drop Both Eyes BID Kathya, Deonna T, BROOCH AND BRACELET MAKER 1 drop at 07/27/18 0811 ??? rosuvastatin (CRESTOR) tablet 10 mg 10 mg Oral QPM Kathya, Deonna T, BROOCH AND BRACELET MAKER 10 mg at 07/26/18 1636 No current [facility]-ordered outpatient prescriptions on file. Family History: [...] at [facility], 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 Physical [...] 12 lead EK07/27/2018 Atrial fibrillation @ 75; CO 166; QRs 76; QTc 426ms Assessment: Agata [...] to follow patient. Provider: GAGE Aldridge Provider#: [id number] Consult attending physician: Alvaro Maki MD EP Consult positional pager #[phone](EPNJ) EP Device interrogation positional pager # [phone] Associated attestation - Fred Maki MD - 07/27/2018 8:08 PM EDT Cardiac Electrophysiology Attending Addendum: The patient was seen, interviewed and examined by me. Pertinent data and results reviewed. Miguel ALMONTE's note above was reviewed by me and agreed with. Specifically, the pertinent diagnoses andrecommendations were discussed with me. Fred Maki MD, PhD, [facility] Cardiac Electrophysiology * Plan of [...] further details. Deonna Rasheed APRN 07/26/2018 Pager [phone] documented in this encounter Plan of Treatment [...] Routine 07/27/2018 3:46 AM EDT CARDIAC ENZYMES ([facility]) STAT 07/26/2018 10:30 PM EDT CARDIAC ENZYMES ([facility] STAT 07/26/2018 4:31 PM EDT SCAN, PERIPHERAL BLOOD STAT 8 11:44 AM EDT HEMOGRAM STAT 07/26/2018 11:44 AM EDT DIFFERENTIAL, AUTOMATED STAT 07/26/20 18 11:44 AM EDT CARDIAC ENZYMES ([facility]) STAT 07/26/2018 11:44 AM EDT APTT STAT [...] 11:14 AM EDT Chest pain, unspecified type HIGH SCHOOL COUNSELOR SCAN 07/26/2018 12:00 AM EDT documented in this encounter Results * EKG 12 Lead (08/01/2018 11:02 AM EDT) Ventricular rate 52 BPM MUSE SYSTEM Atrial Rate 53 BPM MUSE SYSTEM QRS Duration 76 ms MUSE SYSTEM Q-T Interval 482 ms MUSE SYSTEM QTC Calculated (Bezet) 448 ms MUSE SYSTEM Calculated P Marcy 62 degrees MUSE SYSTEM Calculated R Marcy 24 degrees MUSE SYSTEM Calculated T Marcy 121 degrees MUSE SYSTEM INTERPRETATION Sinus bradycardia [...] 3:35 AM EDT) Neutrophil % 38.8 % [facility] Neutrophil Absolute 5.48 1.70 - 6.10 x10(3)/mc L [facility] Lymph % 15.9 % [facility] Lymphocytes Abs 2.2 0.9 - 3.2 x10(3)/mc L [facility] Monocyte % 7.1 % [facility] Monocyte Abs 1.0(H) 0.3 - 0.9 x10(3)/mc L [facility] Eos % 37.5 % [facility] Eosinophils Abs 5.3(H) 0.0 - 0.4 x10(3)/mc L [facility] Basophil % 0.5 % [facility] Baso Absolute 0.1 0.0 - 0.1 x10(3)/ L [facility] Immature Gran % 0.20 % [facility] Comment: Immature granulocytes(IG's)percentage and absolute count will include metamyelocytes, myelocytes, and promyelocytes. Blood smears from CBCs yielding IG's will be scanned manually for concordance. If this scan disagrees with the automated IG or if promyelocytes are noted, a manual differential will be performed. Immature Gran Absolute 0.03 0.00 - 0.04 x10(3)/ L [facility] Blood specimen (specimen) 08/01/2018 3:35 AM EDT 08/01/2018 3:56 AM EDT Narrative Resulting Agency Comment Spec In Lab Elena Hooks APRN HEMATOLOGY ORDERABLE S Performing Organization Address City/State/[facility] Co de Phone Number [facility] [place] [address] * (ABNORMAL) Hemogram (08/01/2018 3:35 AM EDT) White Blood Cell 14.1(H) 4.0 - 9.5 x10(3)/[facility] Red Blood Cell 4.27(L) 4.58 - 5.54 x10(6)/ L [facility] Hemoglobin 13.9 13.7 - 16.5 gm/dL [facility] Hematocrit 38.9(L) 40.5 - 48.5 % [facility] Mean Cell Volume 91.1 82.9 - 93.1 fL [facility] Mean Cell Hemoglobin 32.6(H) 27.5 - 32.1 pg [facility] Mean Cell Hemoglobin Concentration 35.7 32.0 - 35.7 gm/dL [facility] Platelet 198 145 - 357 x10(3)/ L [facility] RDW Standard Deviation 41.2 36.0 - 45.0 fL [facility] RDW coefficient of variation 12.6 11.4 - 13.8 % [facility] Mean Platelet Volume 11.3 7.6 - 12.9 [facility] NRBC% auto 0.0 % [facility] NRBC Absolute 0.000 0.000 - 0.000 x10(3)/mc L [facility] Blood specimen (specimen) 08/01/2018 3:35 AM EDT 08/01/2018 3:56 AM EDT Narrative Resulting Agency Comment Spec In Lab Elena Hooks APRN HEMATOLOGY ORDERABLE S Performing Organization Address City/State/[facility] Co de Phone Number [facility] [place] [address] * (ABNORMAL) BMP w/fasting Glucose (08/01/2018 3:35 AM EDT) Glucose Fasting 110(H) 65 - 99 mg/dL [facility] Comment: ?Fasting* Glucose Interpretive [...] of Diabetes Mellitus, Position Statement from the [place] [employer]. ??Diabetes Care, Volume 33, Supplement 1, Dec 2009 Blood Urea Nitrogen 22(H) 10 - 20 mg/dL [facility] Creatinine 0.79(L) 0.80 - 1.50 mg/dL [facility] Sodium 137 135 - 145 mmol/L [facility] Potassium 4.4 3.5 - 5.0 mmol/L [facility] Comment: Please note: ??Patients with WBC >100,000 may have falsely elevated Potassium levels. ??For accurate Potassium quantification in these patients send serum separator tube (gold top) for subsequent determinations. ??Contact the Clinical Chemistry Laboratory if there are any questions. Chloride 102 98 - 107 mmol/L [facility] Carbon Dioxide 25 22 - 31 mmol/L [facility] Anion Gap 10 5 - 15 mmol/L [facility] Calcium 9.4 8.5 - 10.5 mg/dL [facility] Est Glomerular Filtration Rate 90 >=60 mL/min/1. 73 m?? [facility] Comment: The eGFR was calculated using the CKD-EPI equation. As with all creatinine based estimates of kidney function, eGFR values calculated with the CKD-EPI equation are not accurate in patients with acute kidney failure, extremes of body mass or the acutely ill. http://[employer]/[facility] eGFR 104 >=60 mL/min/1. 73 m?? [facility] Comment: The eGFR was calculated using the CKD-EPI equation. As with all creatinine based estimates of kidney function, eGFR values calculated with the CKD-EPI equation are not accurate in patients with acute kidney failure, extremes of body mass or the acutely ill. http://[employer]/[facility] Blood specimen (specimen) 08/01/2018 3:35 AM EDT 08/01/2018 3:56 AM EDT Narrative Resulting Agency Comment Spec In Lab Elena Hooks APRN CHEMISTRY ORDERABLES [facility] [place] [address] * EKG 12 Lead (08/01/2018 12:00 AM EDT) Ventricular rate 58 BPM MUSE SYSTEM Atrial Rate 58 BPM MUSE SYSTEM P-R Interval 158 ms MUSE SYSTEM QRS Duration 82 ms MUSE SYSTEM Q-T Interval 530 ms MUSE SYSTEM QTC Calculated (Bezet) 520 ms MUSE SYSTEM Calculated P Marcy 74 degrees MUSE SYSTEM Calculated R Marcy 45 degrees MUSE SYSTEM Calculated T Marcy 97 degrees MUSE SYSTEM INTERPRETATION Sinus bradycardia [...] Hooks JOSE ECG ORDERABLES Performing Organization Address [facility] Co de Phone Number MUSE SYSTEM * EKG 12 Lead (07/31/2018 2:14 PM EDT) Ventricular rate 56 BPM MUSE SYSTEM Atrial Rate 56 BPM MUSE SYSTEM P-R Interval 162 ms MUSE SYSTEM QRS Duration 76 ms MUSE SYSTEM Q-T Interval 482 ms MUSE SYSTEM QTC Calculated (Bezet) 465 ms MUSE SYSTEM Calculated P Marcy 70 degrees MUSE SYSTEM Calculated R Marcy 17 degrees MUSE SYSTEM Calculated T Marcy 134 degrees MUSE SYSTEM INTERPRETATION Sinus bradycardia [...] Hooks APRN ECG ORDERABLES Performing Organization Address [facility] Co de Phone Number MUSE SYSTEM * EKG 12 Lead (07/31/2018 8:32 AM EDT) Ventricular rate 54 BPM MUSE SYSTEM Atrial Rate 54 BPM MUSE SYSTEM P-R Interval 160 ms MUSE SYSTEM QRS Duration 78 ms MUSE SYSTEM Q-T Interval 498 ms MUSE SYSTEM QTC Calculated (Bezet) 472 ms MUSE SYSTEM Calculated P Marcy 67 degrees MUSE SYSTEM Calculated R Marcy 12 degrees MUSE SYSTEM Calculated T Marcy 128 degrees MUSE SYSTEM INTERPRETATION Sinus bradycardia with marked sinus arrhythmia Low voltage QRS Nonspecific T wave abnormality Prolonged QT Abnormal ECG When compared with ECG of 31-JUL-2018 07:44, No significant change was found Confirmed by Denys Miller MD ([id number]) on 07/31/2018 5:01:20 PM MUSE SYSTEM 07/31/2018 8:32 AM EDT 07/31/2018 5:01 PM EDT Ant Suarez MD ECG ORDERABLES Performing Organization Address [facility] Phone Number MUSE SYSTEM * EKG 12 Lead (07/31/2018 7:44 AM EDT) Ventricular rate 56 BPM MUSE SYSTEM Atrial Rate 56 BPM MUSE SYSTEM P-R Interval 164 ms MUSE SYSTEM QRS Duration 84 ms MUSE SYSTEM Q-T Interval 494 ms MUSE SYSTEM QTC Calculated (Bezet) 476 ms MUSE SYSTEM Calculated P Marcy 71 degrees MUSE SYSTEM Calculated R Marcy 15 degrees MUSE SYSTEM Calculated T Marcy 127 degrees MUSE SYSTEM INTERPRETATION Sinus bradycardia [...] Hooks APRN ECG ORDERABLES Performing Organization Address [facility] Phone Number MUSE SYSTEM * (ABNORMAL) Differential, Automated (07/31/2018 6:33 AM EDT) Neutrophil % 39.3 % [facility] Neutrophil Absolute 5.61 1.70 - 6.10 x10(3)/mc L [facility] Lymph % 13.7 % [facility] Lymphocytes Abs 2.0 0.9 - 3.2 x10(3)/mc L [facility] Monocyte % 7.4 % [facility] Monocyte Abs 1.0(H) 0.3 - 0.9 x10(3)/[facility] Eos % 38.8 % [facility] Eosinophils Abs 5.5(H) 0.0 - 0.4 x10(3)/[facility] Basophil % 0.6 % [facility] Baso Absolute 0.1 0.0 - 0.1 x10(3)/[facility] Immature Gran % 0.20 % [facility] Comment: Immature granulocytes(IG's)percentage and absolute count will include metamyelocytes, myelocytes, and promyelocytes. Blood smears from CBCs yielding IG's will be scanned manually for concordance. If this scan disagrees with the automated IG or if promyelocytes are noted, a manual differential will be performed. Immature Gran Absolute 0.03 0.00 - 0.04 x10(3)/[facility] Blood specimen (specimen) 07/31/2018 6:33 AM EDT 07/31/2018 6:52 AM EDT Narrative Resulting Agency Comment Spec In Lab Elena Hooks APRN HEMATOLOGY ORDERABLE S [facility] [place] [address] * (ABNORMAL) Hemogram (07/31/2018 6:33 AM EDT) White Blood Cell 14.3(H) 4.0 - 9.5 x10(3)/[facility] Red Blood Cell 4.92 4.58 - 5.54 x10(6)/[facility] Hemoglobin 15.8 13.7 - 16.5 gm/dL [facility] Hematocrit 45.2 40.5 - 48.5 % [facility] Mean Cell Volume 91.9 82.9 - 93.1 fL [facility] Mean Cell Hemoglobin 32.1 27.5 - 32.1 pg [facility] Mean Cell Hemoglobin Concentration 35.0 32.0 - 35.7 gm/dL [facility] Platelet 183 145 - 357 x10(3)/mc L [facility] RDW Standard Deviation 42.5 36.0 - 45.0 fL [facility] RDW coefficient of variation 12.6 11.4 - 13.8 % [facility] Mean Platelet Volume 11.0 7.6 - 12.9 fL [facility] NRBC% auto 0.0 % [facility] NRBC Absolute 0.000 0.000 - 0.000 x10(3)/mc L [facility] Blood specimen (specimen) 07/31/2018 6:33 AM EDT 07/31/2018 6:52 AM EDT Narrative Resulting Agency Comment Spec In Lab Elena Hooks APRN HEMATOLOGY ORDERABLE S Performing Organization Address City/State/[facility] Co de Phone Number [facility] [place] [address] * (ABNORMAL) BMP w/fasting Glucose (07/31/2018 6:33 AM EDT) Glucose Fasting 107(H) 65 - 99 mg/dL [facility] Comment: ?Fasting* Glucose Interpretive [...] of Diabetes Mellitus, Position Statement from the [place] [employer]. ??Diabetes Care, Volume 33, Supplement 1, Dec 2009 Blood Urea Nitrogen 22(H) 10 - 20 mg/dL [facility] Creatinine 0.75(L) 0.80 - 1.50 mg/dL [facility] Sodium 140 135 - 145 mmol/L [facility] Potassium 4.3 3.5 - 5.0 mmol/L [facility] Comment: Please note: ??Patients with WBC >100,000 may have falsely elevated Potassium levels. ??For accurate Potassium quantification in these patients send serum separator tube (gold top) for subsequent determinations. ??Contact the Clinical Chemistry Laboratory if there are any questions. Chloride 100 98 - 107 mmol/L [facility] Carbon Dioxide 27 22 - 31 mmol/L [facility] Anion Gap 13 5 - 15 mmol/L [facility] Calcium 9.6 8.5 - 10.5 mg/dL [facility] Est Glomerular Filtration Rate 92 >=60 mL/min/1. 73 m?? [facility] Comment: The eGFR was calculated using the CKD-EPI equation. As with all creatinine based estimates of kidney function, eGFR values calculated with the CKD-EPI equation are not accurate in patients with acute kidney failure, extremes of body mass or the acutely ill. http://[employer]/[facility] eGFR 106 >=60 mL/min/1. 73 m?? [facility] Comment: The eGFR was calculated using the CKD-EPI equation. As with all creatinine based estimates of kidney function, eGFR values calculated with the CKD-EPI equation are not accurate in patients with acute kidney failure, extremes of body mass or the acutely ill. [email or web address]/DHnkf Blood specimen (specimen) 07/31/2018 6:33 AM EDT 07/31/2018 6:52 AM EDT Narrative Resulting Agency Comment Spec In Lab Elena Hooks APRN CHEMISTRY ORDERABLES [facility] [place] [address] * EKG 12 Lead (07/31/2018 12:17 AM EDT) Ventricular rate 68 BPM MUSE SYSTEM Atrial Rate 68 BPM MUSE SYSTEM P-R Interval 176 ms MUSE SYSTEM QRS Duration 74 ms MUSE SYSTEM Q-T Interval 490 ms MUSE SYSTEM QTC Calculated (Bezet) 521 ms MUSE SYSTEM Calculated P Marcy 80 degrees MUSE SYSTEM Calculated R Marcy 22 degrees MUSE SYSTEM Calculated T Marcy 73 degrees MUSE SYSTEM INTERPRETATION Sinus rhythm [...] Hooks APRN ECG ORDERABLES Performing Organization Address [facility] de Phone Number MUSE SYSTEM * EKG 12 Lead (07/30/2018 12:36 PM EDT) Ventricular rate 58 BPM MUSE SYSTEM Atrial Rate 58 BPM MUSE SYSTEM P-R Interval 170 ms MUSE SYSTEM QRS Duration 74 ms MUSE SYSTEM Q-T Interval 490 ms MUSE SYSTEM QTC Calculated (Bezet) 481 ms MUSE SYSTEM Calculated P Marcy 73 degrees MUSE SYSTEM Calculated R Marcy 20 degrees MUSE SYSTEM Calculated T Marcy 149 degrees MUSE SYSTEM INTERPRETATION Sinus bradycardia [...] Maki MD ECG ORDERABLES Performing Organization Address [facility] Co de Phone Number MUSE SYSTEM * [...] (Bezet) 522 ms MUSE SYSTEM Calculated R Marcy 21 degrees MUSE SYSTEM Calculated T Marcy -141 degrees MUSE SYSTEM INTERPRETATION Atrial flutter with variable A-V block Abnormal ECG When compared with ECG of 30-JUL-2018 07:34, No significant change was found Confirmed by MD PAT, KURTIS ([id number]) on 07/30/2018 4:46:36 PM MUSE SYSTEM 07/30/2018 10:0 4 AM EDT 07/30/2018 4:46 PM EDT Elena Hooks [employer] ECG ORDERABLES Performing Organization Address City/[facility]/ZIP Co de Phone Number MUSE SYSTEM * EKG 12 Lead (07/30/2018 7:34 AM EDT) Ventricular rate 90 BPM MUSE SYSTEM Atrial Rate 90 BPM MUSE SYSTEM QRS Duration 74 ms MUSE SYSTEM Q-T Interval 392 ms MUSE SYSTEM QTC Calculated (Bezet) 479 ms MUSE SYSTEM Calculated R Marcy 22 degrees MUSE SYSTEM Calculated T Marcy 107 degrees MUSE SYSTEM INTERPRETATION Atrial flutter with variable A-V block with premature ventricular or aberrantly conducted complexes Abnormal ECG When compared with ECG of 29-JUL-2018 23:04, (unconfirmed) Current undetermined rhythm precludes rhythm comparison, needs review No significant change was found Confirmed by MD Cintia, Fidel ([id number]) on 07/30/2018 3:49:11 PM MUSE SYSTEM 07/30/2018 7:34 AM EDT 07/30/2018 3:49 PM EDT Elena Hooks [employer] ECG ORDERABLES Performing Organization Address [facility]/ZIP Co de Phone Number MUSE SYSTEM * (ABNORMAL) Differential, Automated (07/30/2018 4:06 AM EDT) Neutrophil % 57.5 % [facility] Neutrophil Absolute 9.87(H) 1.70 - 6.10 x10(3)/mc L [facility] Lymph % 11.4 % [facility] Lymphocytes Abs 2.0 0.9 - 3.2 x10(3)/mc L [facility] Monocyte % 7.5 % [facility] Monocyte Abs 1.3(H) 0.3 - 0.9 x10(3)/mc L [facility] Eos % 23.0 % [facility] Eosinophils Abs 4.0(H) 0.0 - 0.4 x10(3)/mc L [facility] Basophil % 0.3 % [facility] Baso Absolute 0.0 0.0 - 0.1 x10(3)/ L [facility] Immature Gran % 0.30 % [facility] Comment: Immature granulocytes(IG's)percentage and absolute count will include metamyelocytes, myelocytes, and promyelocytes. Blood smears from CBCs yielding IG's will be scanned manually for concordance. If this scan disagrees with the automated IG or if promyelocytes are noted, a manual differential will be performed. Immature Gran Absolute 0.06(H) 0.00 - 0.04 x10(3)/ L [facility] Blood specimen (specimen) 07/30/2018 4:06 AM EDT 07/30/2018 4:38 AM EDT Narrative Resulting Agency Comment Spec In Lab Deonna Rasheed [employer] HEMATOLOGY ORDERAB LES Performing Organization Address City/State/[facility] Co de Phone Number [facility] [place] [address] * (ABNORMAL) Hemogram (07/30/2018 4:06 AM EDT) White Blood Cell 17.2(H) 4.0 - 9.5 x10(3)/ L [facility] Red Blood Cell 4.75 4.58 - 5.54 x10(6)/ L [facility] Hemoglobin 15.0 13.7 - 16.5 gm/dL [facility] Hematocrit 43.5 40.5 - 48.5 % [facility] Mean Cell Volume 91.6 82.9 - 93.1 fL [facility] Mean Cell Hemoglobin 31.6 27.5 - 32.1 pg [facility] Mean Cell Hemoglobin Concentration 34.5 32.0 - 35.7 gm/dL [facility] Platelet 197 145 - 357 x10(3)/mc L [facility] RDW Standard Deviation 42.6 36.0 - 45.0 fL [facility] RDW coefficient of variation 12.8 11.4 - 13.8 % [facility] Mean Platelet Volume 10.9 7.6 - 12.9 fL [facility] NRBC% auto 0.0 % [facility] NRBC Absolute 0.000 0.000 - 0.000 x10(3)/mc L [facility] Blood specimen (specimen) 07/30/2018 4:06 AM EDT 07/30/2018 4:38 AM EDT Narrative Resulting Agency Comment Spec In Lab Deonna Rasheed APRN HEMATOLOGY ORDERAB LES Performing Organization Address [facility] de Phone Number [facility] [place] [address] * Magnesium (07/30/2018 4:06 AM EDT) Magnesium 0.83 0.69 - 1.07 mmol/L [facility] Blood specimen (specimen) 07/30/2018 4:06 AM EDT 07/30/2018 4:38 AM EDT Narrative Resulting Agency Comment Spec In Lab Deonna Rasheed [employer] CHEMISTRY ORDERABL ES Performing Organization Address [facility] Phone Number [facility] [place] [address] * (ABNORMAL) BMP w/fasting Glucose (07/30/2018 4:06 AM EDT) Glucose Fasting 110(H) 65 - 99 mg/dL [facility] Comment: ?Fasting* Glucose Interpretive [...] of Diabetes Mellitus, Position Statement from the [place] [employer]. ??Diabetes Care, Volume 33, Supplement 1, Dec 2009 Blood Urea Nitrogen 19 10 - 20 mg/dL [facility] Creatinine 0.81 0.80 - 1.50 mg/dL [facility] Sodium 138 135 - 145 mmol/L [facility] Potassium 4.1 3.5 - 5.0 mmol/L [facility] Comment: Please note: ??Patients with WBC >100,000 may have falsely elevated Potassium levels. ??For accurate Potassium quantification in these patients send serum separator tube (gold top) for subsequent determinations. ??Contact the Clinical Chemistry Laboratory if there are any questions. Chloride 101 98 - 107 mmol/L [facility] Carbon Dioxide 24 22 - 31 mmol/L [facility] Anion Gap 13 5 - 15 mmol/L [facility] Calcium 9.3 8.5 - 10.5 mg/dL [facility] Est Glomerular Filtration Rate 89 >=60 mL/min/1. 73 m?? [facility] Comment: The eGFR was calculated using the CKD-EPI equation. As with all creatinine based estimates of kidney function, eGFR values calculated with the CKD-EPI equation are not accurate in patients with acute kidney failure, extremes of body mass or the acutely ill. http://[employer]/[facility] eGFR 103 >=60 mL/min/1. 73 m?? [facility] Comment: The eGFR was calculated using the CKD-EPI equation. As with all creatinine based estimates of kidney function, eGFR values calculated with the CKD-EPI equation are not accurate in patients with acute kidney failure, extremes of body mass or the acutely ill. http://[employer]/[facility] Blood specimen (specimen) 07/30/2018 4:06 AM EDT 07/30/2018 4:38 AM EDT Narrative Resulting Agency Comment Spec In Lab Deonna Rasheed APRN CHEMISTRY ORDERABL ES [facility] [place] [address] * EKG 12 Lead (07/29/2018 11:04 PM EDT) Ventricular rate 101 BPM MUSE SYSTEM Atrial Rate 104 BPM MUSE SYSTEM P-R Interval 176 ms MUSE SYSTEM QRS Duration 78 ms MUSE SYSTEM Q-T Interval 380 ms MUSE SYSTEM QTC Calculated (Bezet) 492 ms MUSE SYSTEM Calculated P Marcy 106 degrees MUSE SYSTEM Calculated R Marcy 26 degrees MUSE SYSTEM Calculated T Marcy 167 degrees MUSE SYSTEM INTERPRETATION Probable Atrial [...] ?YOAN Haines ?(Age): 1945(72y) Med Rec#: ? [id number] ?Sex: ?M ? Site Loc: ? DH ?Ht / Wt: ??188(cm)/97(kg) Pt. Loc: ?Surgery Attendant ?BSA: ?2.24 Study Date: ?? 07/29/2018 ?Pt. Type: Tape: ? Referring: CLAUDIA JONES Reading: Ant Suarez ([id number]) Forgesmith: Tricia Donis ([id number]) Interpreting Fellow: Tricia Donis ([id number]) Diagnosis: *Unspecified atrial fibrillation (I48.91) Rhythm: ? [...] supervision of Dr. Suarez. ?[facility] protocols for [place]ENO procedures in [...] 07/29/2018 15:50:44 Images reviewed and interpretation verified [facility] Cardiac Ultrasound Laboratory Procedure Note Ant Suarez MD - 07/29/2018 Procedure: Transesophageal Echocardiogram Patient: YOAN AVELAR(Age): 1945(72y) Med Rec#: [id number] Sex: M [facility] Ht / Wt: 188(cm)/97(kg) Pt. Loc: Surgery Attendant BSA: 2.24 Study Date: 07/29/2018 Pt. Type: Tape: Referring: CLAUDIA JONES Reading: Ant Suarez ([id number]) Forgesmith: Tricia Donis ([id number]) Interpreting Fellow: Tricia Donis ([id number]) Diagnosis: *Unspecified atrial fibrillation (I48.91) Rhythm: A-Fib [...] supervision of Dr. Suarez. [facility] protocols for NENO procedures in [...] 07/29/2018 15:50:44 Images reviewed and interpretation verified [facility] Cardiac Ultrasound Laboratory Deonna Rasheed APRN ECHO ORDERABLES * Urine Hold (07/29/2018 1:38 PM EDT) Hold, Urine Sample in lab. [facility] Urine specimen (specimen) Urine / Unknown 07/29/2018 1:38 PM EDT 07/29/2018 2:45 PM EDT Elena Hooks APRN URINE ORDERABLES [facility] [place] [address] * Urinalysis with reflex Culture (07/29/2018 1:38 PM EDT) Glucose, Urine Dipstick Negative Negative mg/dL [facility] Protein, Urine Dipstick Negative Negative mg/dL [facility] Bilirubin, Urine Dipstick Negative Negative mg/dL [facility] Comment: Clinical correlation required for positive Urine Bilirubin results as false positive may occur with some drugs and drug related products. If a false positive is suspected a serum total bilirubin should be considered if clinically indicated. Urobilinogen, Urine Dipstick Normal Normal mg/dL [facility] pH, Urn (dipstick) 5.0 5.0 - 8.0 [facility] Blood, Urine Dipstick Negative Negative mg/dL [facility] Ketone, Urine Dipstick Negative Negative mg/dL [facility] Nitrite, Urine Dipstick Negative Negative [facility] Leukocytes, Urine Dipstick Negative Negative [facility] Appearance, Urine Dipstick Clear Clear [facility] Specific [place] Urine Automated 1.020 1.002 - 1.030 [facility] Color, Urine Dipstick Yellow Yellow [facility] Reflex to Culture No [facility] Urine specimen obtained by clean catch procedure (specimen) 07/29/2018 1:38 PM EDT 07/29/2018 2:45 PM EDT Narrative Resulting Agency Comment Spec In Lab Elena Hooks APRN URINE ORDERABLES Performing Organization Address City/[facility]/ZIP Co de Phone Number [facility] [place] [address] * EKG 12 Lead (07/29/2018 7:21 AM EDT) Ventricular rate 84 BPM MUSE SYSTEM Atrial Rate 375 BPM MUSE SYSTEM QRS Duration 72 ms MUSE SYSTEM Q-T Interval 400 ms MUSE SYSTEM QTC Calculated (Bezet) 472 ms MUSE SYSTEM Calculated R Marcy 9 degrees MUSE SYSTEM Calculated T Marcy 10 degrees MUSE SYSTEM INTERPRETATION Atrial fibrillation Abnormal ECG When compared with ECG of 28-JUL-2018 08:44, (unconfirmed) No significant change was found I personally reviewed the tracing and edited the fellows interpretation Confirmed by fellow MD Langley Daniel ([id number]) on 07/29/2018 2:47:56 PM Confirmed by MD Colton, Humble White ([id number]) on 07/29/2018 4:42:19 PM MUSE SYSTEM 07/29/2018 7:21 AM EDT 07/29/2018 4:42 PM EDT Deonna Rasheed APRN ECG ORDERABLES MUSE SYSTEM * (ABNORMAL) Differential, Automated (07/29/2018 5:17 AM EDT) Neutrophil % 50.1 % [facility] Neutrophil Absolute 7.84(H) 1.70 - 6.10 x10(3)/mc L [facility] Lymph % 11.6 % [facility] Lymphocytes Abs 1.8 0.9 - 3.2 x10(3)/[facility] Monocyte % 6.9 % [facility] Monocyte Abs 1.1(H) 0.3 - 0.9 x10(3)/[facility] Eos % 30.7 % [facility] Eosinophils Abs 4.8(H) 0.0 - 0.4 x10(3)/[facility] Basophil % 0.3 % [facility] Baso Absolute 0.0 0.0 - 0.1 x10(3)/[facility] Immature Gran % 0.40 % [facility] Comment: Immature granulocytes(IG's)percentage and absolute count will include metamyelocytes, myelocytes, and promyelocytes. Blood smears from CBCs yielding IG's will be scanned manually for concordance. If this scan disagrees with the automated IG or if promyelocytes are noted, a manual differential will be performed. Immature Gran Absolute 0.06(H) 0.00 - 0.04 x10(3)/[facility] Blood specimen (specimen) 07/29/2018 5:17 AM EDT 07/29/2018 5:44 AM EDT Narrative Resulting Agency Comment Spec In Lab Deonna Rasheed [employer] HEMATOLOGY ORDERAB LES [facility] [place] [address] * (ABNORMAL) Hemogram (07/29/2018 5:17 AM EDT) White Blood Cell 15.6(H) 4.0 - 9.5 x10(3)/[facility] Red Blood Cell 4.93 4.58 - 5.54 x10(6)/[facility] Hemoglobin 15.7 13.7 - 16.5 gm/dL [facility] Hematocrit 45.2 40.5 - 48.5 % [facility] Mean Cell Volume 91.7 82.9 - 93.1 [facility] Mean Cell Hemoglobin 31.8 27.5 - 32.1 pg [facility] Mean Cell Hemoglobin Concentration 34.7 32.0 - 35.7 gm/dL [facility] Platelet 208 145 - 357 x10(3)/mc L [facility] RDW Standard Deviation 42.3 36.0 - 45.0 [facility] RDW coefficient of variation 12.7 11.4 - 13.8 % [facility] Mean Platelet Volume 11.1 7.6 - 12.9 [facility] NRBC% auto 0.0 % [facility] NRBC Absolute 0.000 0.000 - 0.000 x10(3)/mc L [facility] Blood specimen (specimen) 07/29/2018 5:17 AM EDT 07/29/2018 5:44 AM EDT Narrative Resulting Agency Comment Spec In Lab Deonna Rasheed APRN HEMATOLOGY ORDERAB LES Performing Organization Address [facility]/ZIP Co de Phone Number [facility] [place] [address] * Magnesium (07/29/2018 5:17 AM EDT) Magnesium 0.85 0.69 - 1.07 mmol/L [facility] Blood specimen (specimen) 07/29/2018 5:17 AM EDT 07/29/2018 5:44 AM EDT Narrative Resulting Agency Comment Spec In Lab Deonna Rasheed [employer] CHEMISTRY ORDERABL ES Performing Organization Address [facility]/ZIP Co de Phone Number [facility] [place] [address] * (ABNORMAL) BMP w/fasting Glucose (07/29/2018 5:17 AM EDT) [facility] Signature Glucose Fasting 107(H) 65 - 99 mg/dL [facility] Comment: ?Fasting* Glucose Interpretive [...] of Diabetes Mellitus, Position Statement from the [place] [employer]. ??Diabetes Care, Volume 33, Supplement 1, Dec 2009 Blood Urea Nitrogen 20 10 - 20 mg/dL [facility] Creatinine 0.86 0.80 - 1.50 mg/dL [facility] Sodium 139 135 - 145 mmol/L [facility] Potassium 4.3 3.5 - 5.0 mmol/L [facility] Comment: Please note: ??Patients with WBC >100,000 may have falsely elevated Potassium levels. ??For accurate Potassium quantification in these patients send serum separator tube (gold top) for subsequent determinations. ??Contact the Clinical Chemistry Laboratory if there are any questions. Chloride 102 98 - 107 mmol/L [facility] Carbon Dioxide 25 22 - 31 mmol/L [facility] Anion Gap 12 5 - 15 mmol/L [facility] Calcium 9.4 8.5 - 10.5 mg/dL [facility] Est Glomerular Filtration Rate 87 >=60 mL/min/1. 73 m?? [facility] Comment: The eGFR was calculated using the CKD-EPI equation. As with all creatinine based estimates of kidney function, eGFR values calculated with the CKD-EPI equation are not accurate in patients with acute kidney failure, extremes of body mass or the acutely ill. http://[employer]/[facility] eGFR 100 >=60 mL/min/1. 73 m?? [facility] Comment: The eGFR was calculated using the CKD-EPI equation. As with all creatinine based estimates of kidney function, eGFR values calculated with the CKD-EPI equation are not accurate in patients with acute kidney failure, extremes of body mass or the acutely ill. [email or web address] System[employer]/DHMCnkf Blood specimen (specimen) 07/29/2018 5:17 AM EDT 07/29/2018 5:44 AM EDT Narrative Resulting Agency Comment Spec In Lab Deonna T Kathya [employer] CHEMISTRY ORDERABL ES [facility] [place] [address] * CT Cervical Spine wo Contrast (07/28/2018 [...] No acute cervical spine fracture. Elena Hooks [facility] ORDERABLES * CT Head wo Contrast [...] to adjacentdental disease. 10:37 AM Elena Hooks [employer] IMG CT ORDERABLES * POCT Glucose (07/28/2018 9:12 AM EDT) [facility] Glucose, POC 191 65 - 199 mg/dL [facility] Comment: Supplemental ranges: <140 mg/dL before meals <180 mg/dL all other times of the day Blood specimen (specimen) 07/28/2018 9:12 AM EDT 07/28/2018 9:12 AM EDT Cameron Mahmood MD POINT OF CARE TEST O RDERABLES [facility] [place] [address] * EKG 12 Lead (07/28/2018 8:44 AM EDT) Ventricular rate 77 BPM MUSE SYSTEM Atrial Rate 357 BPM MUSE SYSTEM QRS Duration 76 ms MUSE SYSTEM Q-T Interval 410 ms MUSE SYSTEM QTC Calculated (Bezet) 463 ms MUSE SYSTEM Calculated R Marcy 14 degrees MUSE SYSTEM Calculated T Marcy 48 degrees MUSE SYSTEM INTERPRETATION Atrial fibrillation Abnormal ECG When compared with ECG of 28-JUL-2018 07:19, No significant change was found I personally reviewed the tracing and edited the fellows interpretation Confirmed by fellow MD Langley Daniel ([id number]) on 07/29/2018 2:53:27 PM Confirmed by MD Segura Shawn M. ([id number]) on 07/29/2018 4:42:14 PM MUSE SYSTEM 07/28/2018 8:44 AM EDT 07/29/2018 4:42 PM EDT Deonna T Kathya [employer] ECG ORDERABLES Performing Organization Address [facility] de Phone Number MUSE SYSTEM * EKG 12 Lead (07/28/2018 7:19 AM EDT) Ventricular rate 81 BPM MUSE SYSTEM Atrial Rate 326 BPM MUSE SYSTEM QRS Duration 76 ms MUSE SYSTEM Q-T Interval 402 ms MUSE SYSTEM QTC Calculated (Bezet) 466 ms MUSE SYSTEM Calculated R Marcy 7 degrees MUSE SYSTEM Calculated T Marcy 63 degrees MUSE SYSTEM INTERPRETATION Atrial fibrillation Abnormal ECG When compared with ECG of 27-JUL-2018 07:24, No significant change was found I personally reviewed the tracing and edited the fellows interpretation Confirmed by fellow MD Langley Daniel ([id number]) on 07/28/2018 8:28:08 AM Confirmed by MD Segura Shawn M. ([id number]) on 07/28/2018 5:49:00 PM MUSE SYSTEM 07/28/2018 7:19 AM EDT 07/28/2018 5:49 PM EDT Deonna T Kathya CARRILLON ECG ORDERABLES Performing Organization Address [facility] de Phone Number MUSE SYSTEM * (ABNORMAL) Differential, Automated (07/28/2018 3:54 AM EDT) Neutrophil % 41.8 % [facility] Neutrophil Absolute 6.28(H) 1.70 - 6.10 x10(3)/mc L [facility] Lymph % 13.3 % [facility] Lymphocytes Abs 2.0 0.9 - 3.2 x10(3)/mc L [facility] Monocyte % 5.8 % [facility] Monocyte Abs 0.9 0.3 - 0.9 x10(3)/mc L [facility] Eos % 38.3 % [facility] Eosinophils Abs 5.8(H) 0.0 - 0.4 x10(3)/mc L [facility] Basophil % 0.6 % [facility] Baso Absolute 0.1 0.0 - 0.1 x10(3)/[facility] Immature Gran % 0.20 % [facility] Comment: Immature granulocytes(IG's)percentage and absolute count will include metamyelocytes, myelocytes, and promyelocytes. Blood smears from CBCs yielding IG's will be scanned manually for concordance. If this scan disagrees with the automated IG or if promyelocytes are noted, a manual differential will be performed. Immature Gran Absolute 0.03 0.00 - 0.04 x10(3)/[facility] Blood specimen (specimen) 07/28/2018 3:54 AM EDT 07/28/2018 4:10 AM EDT Narrative Resulting Agency Comment Spec In Lab Deonna Rasheed APRN HEMATOLOGY ORDERAB LES Performing Organization Address City/State/[facility] Co de Phone Number [facility] [place] [address] * (ABNORMAL) Hemogram (07/28/2018 3:54 AM EDT) White Blood Cell 15.0(H) 4.0 - 9.5 x10(3)/[facility] Red Blood Cell 5.08 4.58 - 5.54 x10(6)/[facility] Hemoglobin 16.3 13.7 - 16.5 gm/dL [facility] Hematocrit 46.4 40.5 - 48.5 % [facility] Mean Cell Volume 91.3 82.9 - 93.1 fL [facility] Mean Cell Hemoglobin 32.1 27.5 - 32.1 pg [facility] Mean Cell Hemoglobin Concentration 35.1 32.0 - 35.7 gm/dL [facility] Platelet 203 145 - 357 x10(3)/ L [facility] RDW Standard Deviation 42.5 36.0 - 45.0 fL [facility] RDW coefficient of variation 12.6 11.4 - 13.8 % [facility] Mean Platelet Volume 11.0 7.6 - 12.9 fL [facility] NRBC% auto 0.0 % [facility] [place] [place] NRBC Absolute 0.000 0.000 - 0.000 x10(3)/mc L [facility] Blood specimen (specimen) 07/28/2018 3:54 AM EDT 07/28/2018 4:10 AM EDT Narrative Resulting Agency Comment Spec In Lab Deonna Rasheed APRN HEMATOLOGY ORDERAB LES Performing Organization Address [facility] Co de Phone Number [facility] [place] [address] * Magnesium (07/28/2018 3:54 AM EDT) Magnesium 0.86 0.69 - 1.07 mmol/L [facility] Blood specimen (specimen) 07/28/2018 3:54 AM EDT 07/28/2018 4:10 AM EDT Narrative Resulting Agency Comment Spec In Lab Deonna Rasheed APRN CHEMISTRY ORDERABL ES Performing Organization Address [facility] de Phone Number [facility] [place] [address] * (ABNORMAL) BMP w/fasting Glucose (07/28/2018 3:54 AM EDT) Glucose Fasting 118(H) 65 - 99 mg/dL [facility] Comment: ?Fasting* Glucose Interpretive [...] of Diabetes Mellitus, Position Statement from the [place] [employer]. ??Diabetes Care, Volume 33, Supplement 1, Dec 2009 Blood Urea Nitrogen 19 10 - 20 mg/dL [facility] Creatinine 0.83 0.80 - 1.50 mg/dL [facility] Sodium 140 135 - 145 mmol/L [facility] [...] mmol/L [facility] Carbon Dioxide 26 22 - 31 mmol/L [facility] Anion Gap 11 5 - 15 mmol/L [facility] Calcium 9.7 8.5 - 10.5 mg/dL [facility] Est Glomerular Filtration Rate 88 >=60 mL/min/1. 73 m?? [facility] Comment: The eGFR was calculated using the CKD-EPI equation. As with all creatinine based estimates of kidney function, eGFR values calculated with the CKD-EPI equation are not accurate in patients with acute kidney failure, extremes of body mass or the acutely ill. http://[employer]/[facility] eGFR 102 >=60 mL/min/1. 73 m?? [facility] Comment: The eGFR was calculated using the CKD-EPI equation. As with all creatinine based estimates of kidney function, eGFR values calculated with the CKD-EPI equation are not accurate in patients with acute kidney failure, extremes of body mass or the acutely ill. http://[employer]/[facility] Blood specimen (specimen) 07/28/2018 3:54 AM EDT 07/28/2018 4:10 AM EDT Narrative Resulting Agency Comment Spec In Lab Deonna Rasheed [employer] CHEMISTRY ORDERABL ES [facility] [place] [place] [address] * CARDIAC CATHETERIZATION (07/27/2018 11:30 AM EDT) Anatomical Region Laterality Modality Other Narrative 07/27/2018 11:39 AM EDT ?[facility] ? Cardiac Catheterization/Intervention Report ? Patient Name: Agata Flores Zaki. ? Procedure Date: 07/27/2018 ? A #: [id number] ? Primary Physician: Min Jeffery ? Case #: [id number] ? File Name: [id number] ? Catheterization Order Number: [id number] ? [facility] ? Final Report [place], [place] ? Patient Name: ? Agata Flores ?ID#: ?[id number] ? : ?1945 ? Procedure Date: ? July 27, 2018 ?Case #: ? [id number] ? Room: ? 1 ? Case Physician: [...] presented with: unstable angina (w/i 60 days). [place] ?Cardiovascular Society angina class was III. This [...] heart catheterization ?was performed utilizing a 7Fr Kerkhoven-Naila catheter. 5,000 units of heparin ?were administered. [...] Note Min Jeffery II, MD - 09/02/2018 [facility] Cardiac Catheterization/Intervention Report Patient Name: Agata Flores Procedure Date: 07/27/2018 A #: [id number] Primary Physician: Min Jeffery Case #: [id number] File Name: [id number] Catheterization Order Number: [id number] [facility] FinalReport [place], [place] Patient Name: Agata Flores ID#:[id number] :1945 Procedure Date: July 27, 2018 Case [...] presented with: unstable angina (w/i 60 days). [place] Cardi[employer] Society angina class was III. This [...] Right heartcatheterization was performed utilizing a 7Fr Kerkhoven-Naila catheter. 5,000 units ofheparin were administered. A total of 100cc of Omnipaque were opened yey230zm of Omnipaque were administered. Radiation: Fluoro time [...] ?YOAN Haines ?(Age): 1945(72y) Med Rec#: ? [id number] ?Sex: ?M ? Site Loc: ? [facility] ?Ht / Wt: ??188(cm)/99(kg) Pt. Loc: ?Adult Floor ? BSA: ?2.26 Study Date: ?? 07/27/2018 ?Pt. Type: Inpatient Tape: ? Referring: JAZMIN Reading: Gamaliel Sotelo ([id number]) Forgesmith: Sander Houser [facility] Diagnosis: *Chest pain, unspecified (R07.9) [...] ? Mid-Inferior ?Normal ? Mid-Inferoseptal ?Normal ? Lockhart-Septal ? Normal ? Lockhart-Anterior ? Normal ? Lockhart-Lateral ?Normal ? Lockhart-Inferior ? Normal ? Lockhart-Tip ?Normal ? This report has been electronically signed by: Gamaliel Sotelo MD ? 07/27/2018 09:26:48 Images reviewed and interpretation verified [facility] Cardiac Ultrasound Laboratory Procedure Note Gamaliel Sotelo MD - 07/27/2018 Procedure: Transthoracic Echocardiogram Patient: YOAN AVELAR(Age): 1945(72y) Med Rec#: [id number] Sex: M [facility] Ht / Wt: 188(cm)/99(kg) Pt. Loc: Adult Floor BSA: 2.26 Study Date: 07/27/2018 Pt. Type: Inpatient Tape: Referring: JAZMIN Reading: Gamaliel Sotelo ([id number]) Forgesmith: Sander Houser RDCS Diagnosis: *Chest pain, unspecified [...] Normal Mid-Posterolateral Normal Mid-Inferior Normal Mid-Inferoseptal Normal Lockhart-Septal Normal Lockhart-Anterior Normal Lockhart-Lateral Normal Lockhart-Inferior Normal Lockhart-Tip Normal This report has been electronically signed by: Gamaliel Sotelo MD 07/27/2018 09:26:48 Images reviewed and interpretation verified [facility] Cardiac Ultrasound Laboratory Deonna Rasheed APRN ECHO ORDERABLES * EKG 12 Lead (07/27/2018 7:24 AM EDT) Ventricular rate 75 BPM MUSE SYSTEM Atrial Rate 166 BPM MUSE SYSTEM QRS Duration 76 ms MUSE SYSTEM Q-T Interval 382 ms MUSE SYSTEM QTC Calculated (Bezet) 426 ms MUSE SYSTEM Calculated R Marcy 12 degrees MUSE SYSTEM Calculated T Marcy 112 degrees MUSE SYSTEM INTERPRETATION Atrial fibrillation Abnormal ECG When compared with ECG of 26-JUL-2018 11:14, No significant change was found I personally reviewed the tracing and edited the fellows interpretation Confirmed by fellow MD Langley Daniel ([id number]) on 07/27/2018 11:57:52 AM Confirmed by Denys Miller MD ([id number]) on 07/27/2018 2:50:48 PM MUSE SYSTEM 07/27/2018 7:24 AM EDT 07/27/2018 2:50 PM EDT Deonna T Kathya [employer] ECG ORDERABLES MUSE SYSTEM * (ABNORMAL) Differential, Automated (07/27/2018 3:46 AM EDT) Neutrophil % 34.6 % [facility] Neutrophil Absolute 5.07 1.70 - 6.10 x10(3)/mc L [facility] Lymph % 18.7 % [facility] Lymphocytes Abs 2.7 0.9 - 3.2 x10(3)/mc L [facility] Monocyte % 5.5 % [facility] Monocyte Abs 0.8 0.3 - 0.9 x10(3)/mc L [facility] Eos % 40.5 % [facility] Eosinophils Abs 5.9(H) 0.0 - 0.4 x10(3)/mc L [facility] Basophil % 0.6 % [facility] Baso Absolute 0.1 0.0 - 0.1 x10(3)/mc L [facility] Immature Gran % 0.10 % [facility] Comment: Immature granulocytes(IG's)percentage and absolute count will include metamyelocytes, myelocytes, and promyelocytes. Blood smears from CBCs yielding IG's will be scanned manually for concordance. If this scan disagrees with the automated IG or if promyelocytes are noted, a manual differential will be performed. Immature Gran Absolute 0.02 0.00 - 0.04 x10(3)/mc L [facility] Blood specimen (specimen) 07/27/2018 3:46 AM EDT 07/27/2018 4:06 AM EDT Narrative Resulting Agency Comment Spec In Lab Deonna Rasheed [employer] HEMATOLOGY ORDERAB LES [facility] [place] [address] * (ABNORMAL) Hemogram (07/27/2018 3:46 AM EDT) White Blood Cell 14.7(H) 4.0 - 9.5 x10(3)/[facility] Red Blood Cell 4.89 4.58 - 5.54 x10(6)/[facility] Hemoglobin 15.7 13.7 - 16.5 gm/dL [facility] Hematocrit 44.4 40.5 - 48.5 % [facility] Mean Cell Volume 90.8 82.9 - 93.1 fL [facility] Mean Cell Hemoglobin 32.1 27.5 - 32.1 pg [facility] Mean Cell Hemoglobin Concentration 35.4 32.0 - 35.7 gm/dL [facility] Platelet 207 145 - 357 x10(3)/[facility] RDW Standard Deviation 41.4 36.0 - 45.0 [facility] RDW coefficient of variation 12.6 11.4 - 13.8 % [facility] Mean Platelet Volume 10.7 7.6 - 12.9 [facility] NRBC% auto 0.0 % [facility] NRBC Absolute 0.000 0.000 - 0.000 x10(3)/ L [facility] Blood specimen (specimen) 07/27/2018 3:46 AM EDT 07/27/2018 4:06 AM EDT Narrative Resulting Agency Comment Spec In Lab Deonna Elizabeth Kathya [employer] HEMATOLOGY ORDERAB LES Performing Organization Address [facility]/ZIP Co de Phone Number [facility] [place] [address] * Magnesium (07/27/2018 3:46 AM EDT) Magnesium 0.86 0.69 - 1.07 mmol/L [facility] Blood specimen (specimen) 07/27/2018 3:46 AM EDT 07/27/2018 4:06 AM EDT Narrative Resulting Agency Comment Spec In Lab Deonna Wooddor [employer] CHEMISTRY ORDERABL ES Performing Organization Address [facility] Co de Phone Number [facility] [place] [address] * (ABNORMAL) BMP w/fasting Glucose (07/27/2018 3:46 AM EDT) Glucose Fasting 111(H) 65 - 99 mg/dL [facility] Comment: ?Fasting* Glucose Interpretive [...] of Diabetes Mellitus, Position Statement from the [place] Diabetes [employer]. ??Diabetes Care, Volume 33, Supplement 1, Dec 2009 Blood Urea Nitrogen 19 10 - 20 mg/dL [facility] Creatinine 0.89 0.80 - 1.50 mg/dL [facility] Sodium 138 135 - 145 mmol/L [facility] [...] mmol/L [facility] Carbon Dioxide 23 22 - 31 mmol/L [facility] Anion Gap 12 5 - 15 mmol/L [facility] Calcium 9.7 8.5 - 10.5 mg/dL [facility] Est Glomerular Filtration Rate 85 >=60 mL/min/1. 73 m?? [facility] Comment: The eGFR was calculated using the CKD-EPI equation. As with all creatinine based estimates of kidney function, eGFR values calculated with the CKD-EPI equation are not accurate in patients with acute kidney failure, extremes of body mass or the acutely ill. http://[employer]/[facility] eGFR 99 >=60 mL/min/1. 73 m?? [facility] Comment: The eGFR was calculated using the CKD-EPI equation. As with all creatinine based estimates of kidney function, eGFR values calculated with the CKD-EPI equation are not accurate in patients with acute kidney failure, extremes of body mass or the acutely ill. http://[employer]/[facility] Blood specimen (specimen) 07/27/2018 3:46 AM EDT 07/27/2018 4:06 AM EDT Narrative Resulting Agency Comment Spec In Lab Deonna Rasheed APRN CHEMISTRY ORDERABL ES [facility] [place] [address] * Cardiac Enzymes (LEB/CGP) (07/26/2018 10:30 PM EDT) Troponin-T <0.01 0.00 - 0.00 ng/mL [facility] Comment: The 99th percentile for Troponin T is less than 0.01 ng/mL, any detectable cTnT concentration using this assay should be considered elevated. According to the third universal definition of myocardial infarction the following criteria with a clinical presentation consistent with acute myocardial ischemia meets the diagnosis for a myocardial infarction (ND). Detection of a rise and/or fall of cTnT, with at least one value greater than the 99th percentile (> or = 0.01) and with at least one of the following ?? Symptoms of ischemia ?? New or presumed new significant GE-xdibkol-K wave (ST-T) changes or new left bundle [...] additional sample may be indicated. Reference: Third [place] Definition of Myocardial Infarction. Journal of the [place] College [employer] 2012;60:1581-98 Creatine Kinase 23 0 - 200 unit/L [facility] Blood specimen (specimen) 07/26/2018 10:30 PM EDT 07/26/2018 11:04 PM EDT Narrative Resulting Agency Comment Spec In Lab Deonna Rashede APRN CHEMISTRY ORDERABL ES [facility] [place] [address] * Cardiac Enzymes (LEB/CGP) (07/26/2018 4:31 PM EDT) Troponin-T <0.01 0.00 - 0.00 ng/mL [facility] Comment: The 99th percentile for Troponin T is less than 0.01 ng/mL, any detectable cTnT concentration using this assay should be considered elevated. According to the third universal definition of myocardial infarction the following criteria with a clinical presentation consistent with acute myocardial ischemia meets the diagnosis for a myocardial infarction (ND). Detection of a rise and/or fall of cTnT, with at least one value greater than the 99th percentile (> or = 0.01) and with at least one of the following ?? Symptoms of ischemia ?? New or presumed new significant FO-jboxaoy-Y wave (ST-T) changes or new left bundle [...] additional sample may be indicated. Reference: Third [place] Definition of Myocardial Infarction. Journal of the [place] College [employer] 2012;60:1581-98 Creatine Kinase 22 0 - 200 unit/L [facility] Blood specimen (specimen) 07/26/2018 4:31 PM EDT 07/26/2018 4:48 PM EDT Narrative Resulting Agency Comment Spec In Lab Deonna Rasheed APRN CHEMISTRY ORDERABL ES [facility] [place] [address] * Hemoglobin A1c (07/26/2018 11:44 AM EDT) Hemoglobin A1c 5.6 4.3 - 5.6 % [facility] Comment: Reference Range: 4.3 [...] Mellitus, Diabetes Care 2013; 36: Suppl. 1, S67-89 Estimated Average Glucose See note mg/dL [facility] Comment: Estimated Average Glucose [...] available on the ADA website. Zachary LEONE, Key J, Domenica R, et al. ??Translating the A1C assay into estimated average glucose values. ??Diabetes Care 2008:31(8):4934-9833. Blood specimen (specimen) Venous Draw / Unknown 07/26/2018 11:44 AM EDT 07/26/2018 12:50 PM EDT Narrative Resulting Agency Comment Spec In Lab Deonna Rasheed APRN CHEMISTRY ORDERABL ES Performing Organization Address [facility]/ZIP Co de Phone Number [facility] [place] [address] * TSH (07/26/2018 11:44 AM EDT) [facility] Thyroid Stimulating Hormone 3.98 0.27 - 4.20 mlU/ML [facility] Blood specimen (specimen) Venous Draw / Unknown 07/26/2018 11:44 AM EDT 07/26/2018 11:52 AM EDT Narrative Resulting Agency Comment Spec In Lab Deonna Elizabeth Rasheed [employer] CHEMISTRY ORDERABL ES Performing Organization Address [facility] Co de Phone Number [facility] [place] [address] * Scan, Peripheral Blood (07/26/2018 11:44 AM EDT) [facility] Plat estimate Normal [facility] RBC Morphology Normal [facility] Blood specimen (specimen) 07/26/2018 11:44 AM EDT 07/26/2018 11:49 AM EDT Narrative Resulting Agency Comment Spec In Lab Janet Myesha ALMONTE HEMATOLOGY ORDERABLE S [facility] [place] [address] * (ABNORMAL) Differential, Automated (07/26/2018 11:44 AM EDT) Neutrophil % 43.7 % [facility] Neutrophil Absolute 6.32(H) 1.70 - 6.10 x10(3)/ L [facility] Lymph % 11.7 % [facility] Lymphocytes Abs 1.7 0.9 - 3.2 x10(3)/[facility] Monocyte % 5.7 % [facility] Monocyte Abs 0.8 0.3 - 0.9 x10(3)/ L [facility] Eos % 38.1 % [facility] Eosinophils Abs 5.5(H) 0.0 - 0.4 x10(3)/[facility] Basophil % 0.5 % [facility] Baso Absolute 0.1 0.0 - 0.1 x10(3)/ L [facility] Immature Gran % 0.30 % [facility] Comment: Immature granulocytes(IG's)percentage and absolute count will include metamyelocytes, myelocytes, and promyelocytes. Blood smears from CBCs yielding IG's will be scanned manually for concordance. If this scan disagrees with the automated IG or if promyelocytes are noted, a manual differential will be performed. Immature Gran Absolute 0.04 0.00 - 0.04 x10(3)/ L [facility] Blood specimen (specimen) 07/26/2018 11:44 AM EDT 07/26/2018 11:49 AM EDT Narrative Resulting Agency Comment Spec In Lab Janet ALMONTE HEMATOLOGY ORDERABLE S [facility] [place] [address] * (ABNORMAL) Hemogram (07/26/2018 11:44 AM EDT) White Blood Cell 14.4(H) 4.0 - 9.5 x10(3)/mc L [facility] Red Blood Cell 4.73 4.58 - 5.54 x10(6)/mc L [facility] Hemoglobin 14.9 13.7 - 16.5 gm/dL [facility] Hematocrit 43.2 40.5 - 48.5 % [facility] Mean Cell Volume 91.3 82.9 - 93.1 [facility] Mean Cell Hemoglobin 31.5 27.5 - 32.1 pg [facility] Mean Cell Hemoglobin Concentration 34.5 32.0 - 35.7 gm/dL [facility] Platelet 209 145 - 357 x10(3)/mc L [facility] RDW Standard Deviation 41.9 36.0 - 45.0 [facility] RDW coefficient of variation 12.7 11.4 - 13.8 % [facility] Mean Platelet Volume 11.1 7.6 - 12.9 [facility] NRBC% auto 0.0 % [facility] NRBC Absolute 0.000 0.000 - 0.000 x10(3)/mc L [facility] Blood specimen (specimen) 07/26/2018 11:44 AM EDT 07/26/2018 11:49 AM EDT Narrative Resulting Agency Comment Spec In Lab Janet ALMONTE HEMATOLOGY ORDERABLE S [facility] [place] [address] * APTT (07/26/2018 11:44 AM EDT) Partial Thromboplastin Time 34 25 - 37 sec [facility] Comment: The PTT is NOT appropriate for heparin monitoring. Use the Anti-Xa level for heparin monitoring (HEP UFH) or LMWH monitoring (HEP LMW). A PTT less than 37 seconds generally indicates adequate hemostasis. Blood specimen (specimen) 07/26/2018 11:44 AM EDT 07/26/2018 11:49 AM EDT Narrative Resulting Agency Comment Spec In Lab Cameron Mahmood MD HEMATOLOGY ORDERABLE S Performing Organization Address [facility] Co de Phone Number [facility] [place] [address] * (ABNORMAL) Prothrombin Time (07/26/2018 11:44 AM EDT) Prothrombin Time 13.4(H) 9.4 - 12.5 sec [facility] International Normalization Ratio 1.2 [facility] Comment: An INR <2.0 [...] MD HEMATOLOGY ORDERABLE S Performing Organization Address City/Va Hospital/ZIP Co de Phone Number [facility] [place] [address] * (ABNORMAL) pro-Brain Natriuretic Peptide (07/26/2018 11:44 AM EDT) NT-proBNP 453(H) <=125 pg/mL [facility] Blood specimen (specimen) 07/26/2018 11:44 AM EDT 07/26/2018 11:49 AM EDT Narrative Resulting Agency Comment Spec In Lab Cameron Mahmood MD CHEMISTRY ORDERABLES Performing Organization Address [facility]/Va Hospital/ZIP Co de Phone Number [facility] [place] [address] * Cardiac Enzymes (LEB/CGP) (07/26/2018 11:44 AM EDT) Troponin-T <0.01 0.00 - 0.00 ng/mL [facility] Comment: The 99th percentile for Troponin T is less than 0.01 ng/mL, any detectable cTnT concentration using this assay should be considered elevated. According to the third universal definition of myocardial infarction the following criteria with a clinical presentation consistent with acute myocardial ischemia meets the diagnosis for a myocardial infarction (ND). Detection of a rise and/or fall of cTnT, with at least one value greater than the 99th percentile (> or = 0.01) and with at least one of the following ?? Symptoms of ischemia ?? New or presumed new significant LH-kjdgwov-U wave (ST-T) changes or new left bundle [...] additional sample may be indicated. Reference: Third [place] Definition of Myocardial Infarction. Journal of the [place] College of [employer]iology 2012;60:1581-98 Creatine Kinase <20 0 - 200 unit/L [facility] Blood specimen (specimen) 07/26/2018 11:44 AM EDT 07/26/2018 11:49 AM EDT Narrative Resulting Agency Comment Spec In Lab Deonna Rasheed APRN CHEMISTRY ORDERABL ES Performing Organization Address [facility] Hospital/ZIP Co de Phone Number [facility] [place] [address] * Basic Metabolic Panel (non-fasting) (07/26/2018 11:44 AM EDT) Glucose 118 65 - 199 mg/dL [facility] Comment:Diabetes: >=200 mg/d L plus symptoms Blood Urea Nitrogen 20 10 - 20 mg/dL [facility] Creatinine 0.82 0.80 - 1.50 mg/dL [facility] Sodium 137 135 - 145 mmol/L [facility] Potassium 4.2 3.5 - 5.0 mmol/L [facility] Comment: Please note: ??Patients with WBC >100,000 may have falsely elevated Potassium levels. ??For accurate Potassium quantification in these patients send serum separator tube (gold top) for subsequent determinations. ??Contact the Clinical Chemistry Laboratory if there are any questions. Chloride 102 98 - 107 mmol/L [facility] Carbon Dioxide 24 22 - 31 mmol/L [facility] Anion Gap 11 5 - 15 mmol/L [facility] Calcium 9.4 8.5 - 10.5 mg/dL [facility] Est Glomerular Filtration Rate 88 >=60 mL/min/1. 73 m?? [facility] Comment: The eGFR was calculated using the CKD-EPI equation. As with all creatinine based estimates of kidney function, eGFR values calculated with the CKD-EPI equation are not accurate in patients with acute kidney failure, extremes of body mass or the acutely ill. http://[employer]/[facility]ING[facility] eGFR 102 >=60 mL/min/1. 73 m?? [facility] Comment: The eGFR was calculated using the CKD-EPI equation. As with all creatinine based estimates of kidney function, eGFR values calculated with the CKD-EPI equation are not accurate in patients with acute kidney failure, extremes of body mass or the acutely ill. http://[employer]/[facility] Blood specimen (specimen) 07/26/2018 11:44 AM EDT 07/26/2018 11:49 AM EDT Narrative Resulting Agency Comment Spec In Lab Cameron Mahmood MD CHEMISTRY ORDERABLES [facility] [place] [address] * EKG 12 Lead (07/26/2018 11:14 AM EDT) Ventricular rate 93 BPM MUSE SYSTEM Atrial Rate 86 BPM MUSE SYSTEM QRS Duration 76 ms MUSE SYSTEM Q-T Interval 366 ms MUSE SYSTEM QTC Calculated (Bezet) 455 ms MUSE SYSTEM Calculated R Marcy 30 degrees MUSE SYSTEM Calculated T Marcy 83 degrees MUSE SYSTEM INTERPRETATION Atrial fibrillation with premature ventricular or aberrantly conducted complexes Abnormal ECG No previous ECGs available Confirmed by MD Maki Kevin ([id number]) on 07/26/2018 6:28:42 PM MUSE SYSTEM 07/26/2018 11:1 4 AM EDT 07/26/2018 6:28 PM EDT Cameron Mahmood MD ECG ORDERABLES Performing Organization Address City/Va Hospital/ZIP Co de Phone Number MUSE SYSTEM * 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 (07/26/2018 12:00 AM EDT) Anatomical Region Laterality [...] - Provider: Amadeo Espinosa RN)1054 ([facility] Hold - Provider: Admin Adt - Reason: Transfer to a Procedural area)1116 ([facility] Unhold - Provider: Admin Adt)1155 ([facility] Hold - Provider: Admin Adt - Reason: Transfer to a Procedural area)1217 ([facility] Unhold - Provider: Admin Adt) 0831 (Given - Provider: Amadeo Espinosa RN) 0909 (Given - Provider: Holly Alexandre RN) brimonidine (ALPHAGAN) 0.2 % ophthalmic solution 1 drop(Linked Group 1) 1 drop, Both Eyes, 2 TIMES DAILY, First dose on Fri07/26/18 at 2100, Until Discontinued, Routine 0810 (Given - Provider: Amadeo Espinosa RN)1054 ([facility] Hold - Provider: Admin Adt - Reason: Transfer to a Procedural area)1116 ([facility] Unhold - Provider: Admin Adt)1155 ([facility] Hold - Provider: Admin Adt - Reason: Transfer to a Procedural area)1217 ([facility] Unhold - Provider: Admin Adt)2121 (Given - Provider: Jordon Cat RN) 0831 (Given - Provider: Amadeo Espinosa RN)2119 (Given - Provider: Mally Malcolm, MORIAH) 09 (Given - Provider: Holly Alexandre, RN) dofetilide (TIKOSYN) capsule 250 mcg (CANCELED) 250 mcg, Oral, 2 TIMES DAILY, First dose on Fri07/31/18 at 1100, Until Discontinued, Routine, Please indicate the name of the EP Attending who authorized the use of Dofetilide: First Dose Allowed - Awaiting authorizing provider approval 1040 (Given - Provider: Amadeo Espinosa RN)2119 (Given - Provider: Mally Malcolm, RN) 906 (Hold - Provider: Holly Alexandre RN - Reason: Per MD Order - [...] nefazodone, norfloxacin, quinine, zafrilukast (inhibitors of cytochrome [id number]) may increase dofetilide levels; consider decreasing the [...] Discontinued, Routine 0607 (Given - Provider: Diane Duran, MORIAH)1054 ([facility] Hold - Provider: Admin Adt - Reason: Transfer to a Procedural area)1116 ([facility] Unhold - Provider: Admin Adt)1155 ([facility] Hold - Provider: Admin Adt - Reason: Transfer to a Procedural area)1200 (Automatically Held - Provider: Admin Adt)1217 ([facility] Unhold - Provider: Admin Adt)1801 (Given - Provider: Amadeo Espinosa RN) 0015 (Given - Provider: Jordon Cat, MORIAH)0639 (Given - Provider: Jordon Cat RN)1205 (Given - Provider: Amadeo Espinosa, MORIAH)1724 (Given - Provider: Amadeo Espinosa, MORIAH) 0016 (Given - Provider: Mally Malcolm, MORIAH)0532 (Given - Provider: Mally Malcolm, MORIAH)1224 (Given - Provider: Holly Alexandre, MORIAH - Comment: consuelo Sharp) rivaroxaban (XARELTO) tablet 20 mg 20 mg, Oral, DAILY WITH DINNER, First dose on 07/27/18 at 1700, Until Discontinued, Must be administered with food., Routine, Restricted anticoagulant, choose the most appropriate response: Approved indication of non-valvular atrial fibrillation 1054 ([facility] Hold - Provider: Admin Adt - Reason: Transfer to a Procedural area)1116 ([facility] Unhold - Provider: Admin Adt)1155 ([facility] Hold - Provider: Admin Adt - Reason: Transfer to a Procedural area)1217 ([facility] Unhold - Provider: Admin Adt)1654 (Given - Provider: Amadeo Espinosa RN) 1723 (Given - Provider: Amadeo Espinosa RN) rosuvastatin (CRESTOR) tablet 10 mg 10 mg, Oral, EVERY EVENING, First dose (after last modification) on 07/26/18 at 1700, Until Discontinued, Routine 1054 ([facility] Hold - Provider: Admin Adt - Reason: Transfer to a Procedural area)1116 ([facility] Unhold - Provider: Admin Adt)1155 ([facility] Hold - Provider: Admin Adt - Reason: Transfer to a Procedural area)1217 ([facility] Unhold - Provider: Admin Adt)1654 (Given - Provider: Amadeo Espinosa RN) 1723 (Given - Provider: Amadeo Espinosa RN) timolol (TIMOPTIC) 0.5 % ophthalmic solution 1 drop(Linked Group 1) 1 drop, Both Eyes, 2 TIMES DAILY, First dose on 07/26/18 at 2100, Until Discontinued, Routine 0810 (Given - Provider: Amadeo Espinosa RN)1054 ([facility] Hold - Provider: Admin Adt - Reason: Transfer to a Procedural area)1116 ([facility] Unhold - Provider: Admin Adt)1155 ([facility] Hold - Provider: Admin Adt - Reason: Transfer to a Procedural area)1217 ([facility] Unhold - Provider: Admin Adt)2120 (Given - Provider: Jordon Cat RN) 0831 (Given - Provider: Amadeo Espinosa RN)212 (Given - Provider: Mally Malcolm RN) 0909 (Given - Provider: Holly Alexandre RN) Continuous Medication Order 07/30/2018 07/31/2018 08/01/2018 sodium chloride 0.9% infusion (CANCELED) 100 mL/hr, Intravenous, CONTINUOUS, Starting on 07/29/18 at 1115, Until Tash 07/30/18 at 1651, Please give 1 L total 1007 (New Bag - Provider: Amadeo Espinosa RN)1054 ([facility] Hold - Provider: Admin Adt - Reason: Transfer to a Procedural area)1116 ([facility] Unhold - Provider: Admin Adt)1149 (Stopped - Provider: Amadeo Espinosa RN)1154 (New Bag - Provider: Lalo Forrester CRNA)1155 ([facility] Hold - Provider: Admin Adt - Reason: Transfer to a Procedural area)1217 ([facility] Unhold - Provider: Admin Adt) PRN Medication Order 07/30/2018 07/31/2018 08/01/2018 acetaminophen (TYLENOL) tablet 650 mg 650 mg, Oral, EVERY 4 HOURS PRN, Starting on 07/26/18 at 1242, Until 08/01/18 at 1705, Pain, Headaches, Maximum dose of acetaminophen is 4000 mg from all sources in 24 hours., Routine 1054 ([facility] Hold - Provider: Admin Adt - Reason: Transfer to a Procedural area)1116 ([facility] Unhold - Provider: Admin Adt)1155 ([facility] Hold - Provider: Admin Adt - Reason: Transfer to a Procedural area)1217 ([facility] Unhold - Provider: Admin Adt) [...] to 72 hours., Routine 1054 ([facility] Hold - Provider: Admin Adt - Reason: Transfer to a Procedural area)1116 ([facility] Unhold - Provider: Admin Adt)1155 ([facility] Hold - Provider: Admin Adt - Reason: Transfer to a Procedural area)1217 ([facility] Unhold - Provider: Admin Adt) [...] Routine documented in this encounter 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
--- OUTSIDE RECORDS SUMMARY | 2024-09-25 08:44 | XMS_ITS | Encounter Summary ---
[place] [address] Care Team Providers Care Support Engineer Name Role Phone Camacho Irwin MD Primary Care Provider [phone] Reason for Visit * Reason Comments Follow-up Aftercare, Jail Use Meds Encounter Details Date Type Department Care Team (Late st Contact Info) Description 03/28/2015 1:00 PM EDT Follow-[place] [id number] Nino Villa MD [facility] [place] [address] Brain abscess Discharge Disposition: Home Social History [...] of these signs/symptoms present. Catheter removed by: Bezty Nugent RN * Nino Villa MD - [...] Date CREATININE 0.8* 03/20/2015 Labs 03/27 at [facility]: Wbc 5.67, hgb 11.1, plt 394, eos [...] EDT) C-Reactive Protein High Sensitivity 0.6 mg/L [facility] Comment: Interpretations: 1) For accurate cardiac [...] Lab Nino Villa MD CHEMISTRY ORDER [facility] * (ABNORMAL) Sedimentation rate (04/06/2015 9:33 AM EDT) Pathologist [facility] Sedimentation Rate Automated 20(H) 0 - 15 mm/hr [facility] Blood specimen (specimen) 04/06/2015 9:33 AM EDT 04/06/2015 9:41 AM EDT Narrative Resulting Agency Comment Spec In Lab Nino Villa MD HEMATOLOGY [facility] documented in this encounter Visit Diagnoses Diagnosis Brain abscess Intracranial abscess documented in this encounter Care Teams Support Engineer Relationship Specialty Start Date End Date Camacho Irwin MD [address] [place] [address] PCP - General 01/27/15 06/30/18 documented as of this encounter
--- OUTSIDE RECORDS SUMMARY | 2024-09-25 08:44 | XMS_ITS | Encounter Summary ---
Author Organization [facility] [place] [address] Care Team Providers Care Tarper Name Role Phone Camacho Irwin MD Primary Care Provider [phone] [phone] Encounter Details Date Type Department Care Team (Latest Contact Info) Description 12/19/2016 - 12/19/2016 11:59 PM EST Hospital Encounter Radiology Library at [facility] [place] [id number] Jimbo Wadsworth MD [facility] [place] [address] Pain Discharge Disposition: Home Social History Tobacco [...] CT Chest (12/19/2016 12:00 AM EST) Narrative [facility] - 12/19/2016 5:23 PM EST This exam is for storage only and is auto-finalizing. Jimbo Wadsworth MD IMG FILM LIBRARY ORD ERABLES Performing Organization Address City/State/[facility] Co de Phone Number [place], [place] documented in this encounter Visit Diagnoses Diagnosis Pain Generalized pain documented in this encounter Care Teams Tarper Relationship Specialty Start Date End Date Camacho Irwin MD [address] [place] [address] PCP - General 01/27/15 06/30/18 documented as of this encounter
--- OUTSIDE RECORDS SUMMARY | 2024-09-25 08:44 | XMS_ITS | Encounter Summary ---
[place] [address] Care Team Providers Care Flask Carrier Name Role Phone Camacho Irwin MD Primary Care Provider [phone] [phone] Encounter Details Date Type Department Care Team (Late st Contact Info) Description 12/19/2016 Notes [place] [address] Torres Day MD [facility] DR ORTHOPAEDIC [place] [address] Social History Tobacco Use Types Packs/Day Years [...] on ice had back pain came to [facility]. Now with concern for anterior inferior [...] on filedocumented in this encounter Care Teams Flask Carrier Relationship Specialty Start Date End Date Camacho Irwin MD [address] [place] [address] PCP - General 01/27/15 06/30/18 documented as of this encounter
--- OUTSIDE RECORDS SUMMARY | 2024-09-25 08:44 | XMS_ITS | Encounter Summary ---
Author Organization [facility] [place] [address] Care Team Providers Care Water Tester Name Role Phone Camacho Irwin MD Primary Care Provider [phone] [phone] Encounter Details Date Type Department Care Team (Late st Contact Info) Description 03/31/2015 External Results [place] [address] Sharad Lazaro MD [facility] [place] [address] Social History Tobacco Use Types Packs/Day Years [...] Platelet 394(Exter nal Lab) Sedimentation Rate Automated 72(CAN SLIDER AL/ABN) C-Reactive Protein High Sensitivity 2.8(Exter nal Lab) Blood Urea Nitrogen 18(Plastic Process Technician al Lab) Creatinine 0.9(Exter nal Lab) Sodium 141(Exter nal Lab) 137 - 147 Potassium 4.2(Exter nal Lab) 3.4 - 5.3 03/27/2015 Historical Provider POINT OF CARE RAMONITA T ORDERABLES documented in this encounter Visit Diagnoses Not on filedocumented in this encounter Care Teams Water Tester Relationship Specialty Start Date End Date Camacho Irwin MD [address] [facility] [place] [address] PCP - General 01/27/15 06/30/18 documented as of this encounter
--- OUTSIDE RECORDS SUMMARY | 2024-09-25 08:44 | XMS_ITS | Encounter Summary ---
Author Organization [facility] [place] [address] Care Team Providers Care Manager Document Name Role Phone Camacho Barrera DO Primary Care Provider [phone] Encounter Details Date Type Department Care Team (Late st Contact Info) Description 07/24/2018 Telephone Cardiology at [address] [address] Gregorio Langley MD [facility] [place] [address] Social History Tobacco Use Types Packs/Day Years [...] time: 1524h Referring Provider: Elisha Patient Location: [facility] Presenting Symptoms per OSH: Escalating lightheadedness/shortness of breath Anterior CP started yesterday a/w exertion resolves with rest Showed up there chest pain free Past Medical History: CAD s/p PCI 2005. Had antecedent LH/dyspnea then. Cath at [place] afib on xarelto, last administration last night [...] filedocumented in this encounter Care Teams Manager Document Relationship Specialty Start Date End Date Camacho Barrera DO [address] [facility] [place] [address] PCP - General Family Medicine 07/01/18 documented as of this encounter
--- NOTE | 2024-09-25 08:45 | ED.GENADUL_ITS ---
Discharge Plan Disposition Patient Disposition: Home Discharge Details Clinical Impression: Wound drainage Primary Care Provider: Camacho Barrera ED Provider: Jennifer Bran Home Meds and New Rx's Prescriptions: No Action furosemide 20 mg tablet 20 mg PO DAILY PRN fluorouracil 5 % cream 1 applic topical BID PRN (Reason: Ear lesion) timolol maleate 0.5 % gel forming solution 1 drp ophthalmic (eye) BID clotrimazole 1 % cream 1 applic topical BID Qty: 45 3RF lisinopril 2.5 mg tablet 2.5 mg PO DAILY Qty: 90 3RF diltiazem HCl 240 mg capsule,extended release 24hr 240 mg PO BID Qty: 180 3RF Patient Comments: TAKE ONE CAPSULE BY MOUTH EVERY MORNING atorvastatin 80 mg tablet 80 mg PO DAILY Qty: 90 3RF clopidogrel 75 mg tablet 75 mg PO DAILY Discharge Instructions Additional Instructions: continue local wound care gently and follow up with your appointment HPI General Date/Time Provider Initiated Documentation: 09/25/24 08:31 . Limitations to Documentation: no limitations . Information obtained by: patient . HPI Narrative: 78-year-old gentleman with multiple medical comorbidities and recent right carotid endarterectomy presents for evaluation of drainage from the wounds. The patient had surgery by vascular surgery at [facility] 10 days ago. Surgery was uncomplicated and the patient left the hospital the next day. He has not been having any significant issues. He reports that last night around 1 AM he started having drainage from the wound. He reports it to be orange in color. It is not associated with any pain. Related Data Home Medications ?Medication ?Instructions ?Recorded ?Confirmed timolol maleate 0.5 % eye gel 1 drp ophthalmic (eye) BID 05/08/23 09/25/24 forming solution clotrimazole 1 % topical cream 1 applic topical BID #45 grams 06/27/23 09/25/24 clopidogrel 75 mg tablet 75 mg PO DAILY 07/17/23 09/25/24 lisinopril 2.5 mg tablet 2.5 mg PO DAILY #90 tabs 02/20/24 09/25/24 diltiazem HCl 240 mg 240 mg PO BID #180 caps 03/29/24 09/25/24 capsule,extended release 24 hr furosemide 20 mg tablet 20 mg PO DAILY PRN 05/13/24 09/25/24 atorvastatin 80 mg tablet 80 mg PO DAILY #90 tabs 06/07/24 09/25/24 fluorouracil 5 % topical cream 1 applic topical BID PRN Ear lesion 07/22/24 09/25/24 Previous Rx's ?Medication ?Instructions ?Recorded clotrimazole 1 % topical cream 1 applic topical BID #45 grams 06/27/23 lisinopril 2.5 mg tablet 2.5 mg PO DAILY #90 tabs 02/20/24 diltiazem HCl 240 mg 240 mg PO BID #180 caps 03/29/24 capsule,extended release 24 hr atorvastatin 80 mg tablet 80 mg PO DAILY #90 tabs 06/07/24 Allergies Allergy/AdvReac Type Severity Reaction Status Date / Time venom-honey bee (bee venom Allergy Severe HIVES Verified 09/25/24 08:36 (honey bee)) TACHYCARDIA Penicillins Allergy Intermediate HIVES Verified 09/25/24 08:36 levetiracetam (From [facility]) AdvReac Severe leukopenia Verified 09/25/24 08:36 prednisone AdvReac Severe rectal Verified 09/25/24 08:36 bleeding and diarrhea aspirin AdvReac Intermediate Nosebleeds Verified 09/25/24 08:36 ceftriaxone AdvReac Intermediate Leukopenia Verified 09/25/24 08:36 simvastatin AdvReac Intermediate LEG PAIN Verified 09/25/24 08:36 DR MCLEOD SHRIMP Allergy Intermediate HIVES , Uncoded 09/25/24 08:36 NAUSEA General Stated Complaint: Cellulitis PALOMA: 3 Exam Narrative Exam Narrative: Review of Systems: All systems reviewed & are unremarkable except as noted in HPI and below Well-developed, no acute distress NCAT Right neck with 10 cm surgical incision there is a small area of irritated skin that is not a dehiscence of the incision line, but is instead next to it. It almost looks like an area that may have had surgical forceps pulling it back. There is some leaking from this area. It is oranges and coloration similar to the skin prep that appears to be still present all over his neck. It may be serosanguineous, but it is definitely not bloody. There is no surrounding erythema or tenderness to the wound. RRR Unlabored respiratory effort Course Vital Signs Vital signs: Vital Signs Temperature 36.4 C L 09/25/24 08:33 Pulse 70 09/25/24 08:33 Respiratory Rate 18 09/25/24 08:33 Blood Pressure 147/100 H 09/25/24 08:33 Pulse Oximetry 97 09/25/24 08:33 Temperature 36.4 C L 09/25/24 08:33 Temperature Source Oral 09/25/24 08:33 Pulse 70 09/25/24 08:33 Respiratory Rate 18 09/25/24 08:33 Respiratory Effort Normal, Non-Labored 09/25/24 08:38 Blood Pressure 147/100 H 09/25/24 08:33 Blood Pressure Position Sitting 09/25/24 08:33 Pulse Oximetry 97 09/25/24 08:33 Oxygen Delivery Method Room Air 09/25/24 08:33 Oxygen Flow Rate 0 09/25/24 08:33 Pain Level 0 09/25/24 08:33 Medical Decision Making Emergent evaluation of postoperative wound. The patient had surgery today [facility] for carotid endarterectomy. Wound does appear intact, there is an adjacent area that seems to be leaking. The fluid does not appear to be consistent with blood. Additional Dermabond was applied to the area and no additional drainage was appreciated after observation. discharged to continue local wound care. return precautions advised. Quality:SDOH Health Related Social Needs: Health related social needs housing instability, house d, with risk of homelessness(Z59.811) PFSH All Active Problems (Updated 09/25/24 @ 09:28 by Jennifer Bran MD) Wound drainage (Acute) History of right-sided carotid endarterectomy (Acute) Performed at [facility] on 09/15/[address] Ramiro Chandra Chronic diarrhea (Acute) Skin lesion of right ear (Acute) Skin lesion of left ear (Acute) CHF exacerbation (Acute) Sleep related hypoxia (Acute) Atrial fibrillation with RVR (Acute) CHF (congestive heart failure) (Chronic) Influenza A (Acute) Left rib fracture (Acute) Atherosclerosis of aorta (Chronic) Enlarged prostate (Acute) Low back pain (Acute) Atrial fibrillation (Chronic) History of left-sided carotid endarterectomy (Acute) 07/16/2023 at [facility] Peripheral artery disease (Acute) 08/15/23 F/u Vascular Non-healing skin lesion (Acute) Hyperlipidemia, unspecified (Acute) Acute ischemic stroke (Acute 05/18/23) Occlusion of right vertebral artery (Acute) Carotid stenosis, bilateral (Chronic) I65.21 - Right-sided extracranial carotid artery stenosis Macrocytosis without anemia (Acute) Primary open angle glaucoma (POAG) of right eye, mild stage (Chronic) Tricuspid regurgitation (Acute) Beat, premature ventricular (Acute ~08/2022) 09/11/22 Cardiology 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 (Acute) Syncope (Chronic) Internal hemorrhoids (Acute) Trigger middle finger of right hand (Acute 04/25/16) Abdominal aortic aneurysm (AAA) 3.0 cm to 5.5 cm in diameter in male (Chronic) Found in October 2018, needs to be rechecked every 3 years Pure hypercholesterolemia (Chronic 01/31/12) goal LDL<70 Metabolic syndrome X (Chronic 02/15/13) goal 215# 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 s/p stenting x 5 2010 or 2011 at [facility] b. presenting symptom was primarily fatigue Hypertension (Chronic) Benign prostatic hypertrophy (Chronic) Atrial fibrillation (Chronic) I48.0 Paroxysmal atrial fibrillation 10/09/20 [facility] Cardiology Medical History Fall Orthostatic hypotension Elevated troponin I level Ischemic stroke Hx of colonic polyps H/O: urinary stone Surgical History S/P carotid endarterectomy S/P ablation of atrial fibrillation (10/2018) steriotactic brain bx (01/27/15) [facility] bx brain abscess R small trigger finger release (05/28/16) [place] Family History Mother , HF at age 89. Heart disease Father , stroke HBP at age 90. Essential hypertension Brother , heart at age 82. No problems noted. Brother No problems noted. 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 Pets and animals: No Sexually active: Yes Do you think of yourself as: straight/heterosexual Current gender identity: male What is your relationship status?: How often do you talk on the phone with friends or family?: three or more times per week How often do you get together with friends or relatives?: three or more times per week Do you belong to any clubs or organized social groups?: yes Panel score (0-1 are the most socially isolated patients): 3 What type of physical activity do you participate in: none Cassidy/Restorationist: None Special cassidy needs: No Seatbelt use: always Drive intox or ride w/intox solo truck driver: No Working smoke detector in home: Yes Fire extinguisher in home: Yes Carbon monox detector in home: Yes Do you feel safe at home: Yes Do you feel safe in your relationship?: Yes Additional Social history: 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 Lives with Kisha in [facility]
--- OUTSIDE RECORDS SUMMARY | 2024-09-25 08:45 | XMS_ITS | Encounter Summary ---
[place] [address] Care Team Providers Care Commercial Light Fixture Assembler Name Role Phone Camacho Irwin MD Primary Care Provider [phone] Encounter Details Date Type Department Care Team (Late st Contact Info) Description 03/09/2015 Orders [place] [address] [facility] [place] [address] Brain abscess Social History Tobacco Use Types [...] abscess documented in this encounter Care Teams Commercial Light Fixture Assembler Relationship Specialty Start Date End Date Camacho Irwin MD [address] [facility] [place] [place] [address] PCP - General 01/27/15 06/30/18 documented as of this encounter
--- OUTSIDE RECORDS SUMMARY | 2024-09-25 08:45 | XMS_ITS | Encounter Summary ---
[place] [address] Care Team Providers Care Environmental Technician Name Role Phone Camacho Irwin MD Primary Care Provider [phone] Encounter Details Date Type Department Care Team (Late st Contact Info) Description 02/01/2015 Orders [place] [address] Jose Small MD [facility] [place] [address] Social History Tobacco Use Types Packs/Day Years [...] filedocumented in this encounter Care Teams Environmental Technician Relationship Specialty Start Date End Date Camacho Irwin MD [address] [place] [address] PCP - General 01/27/15 06/30/18 documented as of this encounter
--- OUTSIDE RECORDS SUMMARY | 2024-09-25 08:45 | XMS_ITS | Encounter Summary ---
Author Organization [facility] [place] [address] Care Team Providers Care Marine Operations Coordinator Name Role Phone Camacho Irwin MD Primary Care Provider [phone] Encounter Details Date Type Department Care Team (Late st Contact Info) Description 02/28/2015 External Results [place] [address] Sharad Lazaro MD [facility] [place] [address] Social History Tobacco Use Types Packs/Day Years [...] Platelet 184(Exter nal Lab) Sedimentation Rate Automated 33(DIRECTOR OF PUPIL PERSONNEL PROGRAM AL/ABN) C-Reactive Protein High Sensitivity 23.4(EXTE RNAL/ABN) Creatinine 0.8(Exter nal Lab) Alkaline Phosphatase 108(Exter nal Lab) Potassium 4.0(Exter nal Lab) 3.4 - 5.3 Aspartate Aminotransferase 27(End Finder Twisting Department al Lab) 14 - 40 Alanine Aminotransferase 66(End Finder Twisting Department al Lab) 10 - 40 02/27/2015 Historical Provider POINT OF CARE RAMONITA T ORDERABLES documented in this encounter Visit Diagnoses Not on filedocumented in this encounter Care Teams Marine Operations Coordinator Relationship Specialty Start Date End Date Camacho Irwin MD [address] [facility] [place] [place] [address] PCP - General 01/27/15 06/30/18 documented as of this encounter
--- OUTSIDE RECORDS SUMMARY | 2024-09-25 08:45 | XMS_ITS | Encounter Summary ---
Author Organization [facility] [place] [address] Care Team Providers Care Hearing Therapy Director Name Role Phone Camacho Irwin MD Primary Care Provider [phone] [phone] Encounter Details Date Type Department Care Team (Late st Contact Info) Description 03/06/2015 Orders Only Hematology [place] [address] [facility] [address] Social History Tobacco Use Types Packs/Day Years [...] on filedocumented in this encounter Care Teams Hearing Therapy Director Relationship Specialty Start Date End Date Camacho Irwin MD [address] [place] [address] PCP - General 01/27/15 06/30/18 documented as of this encounter
--- OUTSIDE RECORDS SUMMARY | 2024-09-25 08:45 | XMS_ITS | Encounter Summary ---
Author Organization [facility] [place] [address] Care Team Providers Care Division Director Name Role Phone Camacho Irwin MD Primary Care Provider [phone] Encounter Details Date Type Department Care Team (Late st Contact Info) Description 02/28/2015 Notes [place] [address] Davida Duff, RN [facility] [place] [address] Social History Tobacco Use Types Packs/Day Years [...] this encounter Progress Notes * Davida Duff, ECONOMIC RESEARCH ANALYST - 02/28/2015 12:43 PM EDT OPAT patient [...] on filedocumented in this encounter Care Teams Division Director Relationship Specialty Start Date End Date Camacho Irwin MD [address] [place] [address] PCP - General 01/27/15 06/30/18 documented as of this encounter
--- OUTSIDE RECORDS SUMMARY | 2024-09-25 08:45 | XMS_ITS | Encounter Summary ---
Author Organization [facility] [place] [address] Care Team Providers Care Animal Ecologist Name Role Phone Camacho Irwin MD Primary Care Provider [phone] Encounter Details Date Type Department Care Team (Late st Contact Info) Description 03/09/2015 Orders Only [place] [address] Iraj Hernandez MD [facility] [place] [address] Social History Tobacco Use Types Packs/Day Years [...] on filedocumented in this encounter Care Teams Animal Ecologist Relationship Specialty Start Date End Date Camacho Irwin MD [address] [place] [address] PCP - General 01/27/15 06/30/18 documented as of this encounter
--- OUTSIDE RECORDS SUMMARY | 2024-09-25 08:45 | XMS_ITS | Encounter Summary ---
Author Organization [facility] [place] [address] Care Team Providers Care Access Service Representative Name Role Phone Camacho Irwin MD Primary Care Provider [phone] Encounter Details Date Type Department Care Team (Late st Contact Info) Description 02/21/2015 External Results [place] [address] Sharad Lazaro MD [facility] [place] [address] Social History Tobacco Use Types Packs/Day Years [...] Platelet 155(Exter nal Lab) Sedimentation Rate Automated 25(RESEARCH EXECUTIVE AL/ABN) C-Reactive Protein High Sensitivity 20.4(EXTE RNAL/ABN) Creatinine 0.8(Exter nal Lab) Potassium 4.4(Exter nal Lab) 3.4 - 5.3 02/20/2015 Historical Provider POINT OF CARE RAMONITA T ORDERABLES * (ABNORMAL) Infectious Disease External Results (02/03/2015) Pathologist [facility] White Blood Cell 14.77(EXT ERNAL/ABN ) Hemoglobin 14.6(Exte rnal Lab) 13.5 - 17.5 Hematocrit 42.8(Exte rnal Lab) 41.0 - 53.0 Platelet 298(Exter nal Lab) Sedimentation Rate Automated 18([facility]) Creatinine 0.9(Exter nal Lab) Alkaline Phosphatase 60([facility]) 02/03/2015 Historical Provider POINT OF CARE RAMONITA T ORDERABLES documented in this encounter Visit Diagnoses Not on filedocumented in this encounter Care Teams Access Service Representative Relationship Specialty Start Date End Date Camacho Irwin MD [address] [place] [address] PCP - General 01/27/15 06/30/18 documented as of this encounter
--- OUTSIDE RECORDS SUMMARY | 2024-09-25 08:45 | XMS_ITS | Encounter Summary ---
[place] [address] Care Team Providers Care Dye Winch Operator Name Role Phone Mirna Orosco MD Primary Care Provider [phone] Reason for Referral * Consultation (Routine) - Closed Specialty Diagnoses / Procedures Referred By Contac t Referred To Contact Infectious Diseases Diagnoses Brain abscess Jose Santiago MD [facility] [place] [address] [facility] [place] [address] Referral ID Status Reason Start Date Expiration Date V isits Requested Visits Authorized [id number] Closed Assume Subset of Care 01/31/2015 01/31/2016 3 3 Reason for Visit * Reason Comments Extremity Weakness Encounter Details Date Type Department Care Team (Latest Contact Info) Description 01/27/2015 3:35 PM EST - 01/31/2015 1:07 PM EST Hospital Encounter [address] [place] [address] [facility] [place] [address] Brain abscess Discharge Disposition: Senior Living Facility Social History Tobacco Use Types Packs/Day [...] schedule, please call the nurse practitioner at [phone] or your Neurosurgeon. [X] Pepcid You are [...] appointment with Neurosurgery Shower/Bath: [place] Wound Care: Laura out 2 weeks after surgery - on [...] Nurse (Latisha Parra) Inpatient Nurses Neurosurgical Resident Residential Advisor (after 5pm or before 8am) Neurosurgery offices (between 8am-5pm): Dr. Santiago Dr. Ceron (pediatric neurosurgery) Dr. Tello: Pediatric Patients , Adult Patients Dr. Forrester Dr. Delgado Dr. Galvez Dr. Interiano Juaquin Madera, Physician Funeral Service Manager Sharlene Lorenzana, Nurse Practitioner Juaquin Short, Physician Funeral Service Manager Kisha Teixeira, Nurse Practitioner CC: MIRNA OROSCO [...] on MRI, being discharged this afternoon to [facility] with transportation provided by [...] 01/28. No redness, drainage, or tenderness at Lyons-hole incisions. Mr. Milton has demonstrated appropriate use of Front-wheel walker and is cognizant of his need for assistance when ambulating/ transferring out of bed. His neurological status, vital signs, and blood sugar have been closely monitored throughout his admission and are stable for discharge as per [facility] p payam and criteria. Discharge summary, medication list, and insurance information all sent with patient in packet, reviewed with patient and to pass information along once arriving at rehab. Pt wheeled to [facility] with all personal belongings and assisted into vehicle safely. * Jacquie Solis-Dov Blake RN - 01/31/2015 11:16 AM EST Patient Name: Mirna Milton Patient Age: 69 y.o. Birthdate: 1945 Admit date: 01/27/2015 Attending Physician: Jose Santiago MD Office of Care Management Clinical Talent Assistant (CRC) Jacquie Solis RN, BSN -CRC NeuroSurgery Voice Mail [phone] Pager [phone] DISCHARGE NOTE: ROOM: 503-A ATTENDING: Jose Santiago MD Reason for Hospitalization: Brain abscess, biopsy and IV abx Patient is medically ready for d/c. Patient has been offered a bed at [facility]. Family and patient are aware and agree with the plans. Patient will be transported via private transportation. P: Plan for transfer to SNF Level rehab bed. Will continue to be available should additional needs arise. * Thuy Aguilar - 01/31/2015 11:01 AM EST Office of Care Management/Sleeve Machine Tender Patient Name: Mirna Milton : 1945 Patient has been offered a SNF bed at [facility]. family arranged for a 1:00 transport. No MD to MD report necessary. Please call Nursing Report to [phone] ask for Derrek Daniel RN. Info to accompany patient: Narcotic Prescriptions Copies of Medication Administration Records and IV sheets for past 10 days. Plan: Sleeve Machine Tender will be available to the patient and CRC for further assistance. Patient will be discharged to: [place] [address] Thuy Aguilar Sleeve Machine Tender * Evelio Correa MD - 01/31/2015 6:12 [...] 5/5 triceps, 2/5 deltoids, 2/5 trap, 5/5 executive officer special warfare team LUE:5/5 RLE: 5/5 LLE: 5/5 -Sensation intact [...] suspicious for metastasis so was transferred to [facility] for definitive management.At [facility] neurosurgery eval s/p OR with stereotactic biopsy [...] Gaudencio Mata MD Infectious Disease fellow Pager [phone] ID Attending I interviewed and examined the [...] interventions: 25 minutes functional there ex Pager: [phone] KAITLYN Barron 01/30/2015 Occupational Therapy Rehabilitation Department [...] with his . Pt is retired from [employer]. is available, has a flexible schedule (sells [...] interventions: 25 minutes-functional mobility, neuro re-ed Pager: [phone] Yenifer Thakur PT Physical Therapy Rehabilitation Department [...] Office of Care Management (OCM) / Clinical Talent Assistant (CRC)/ Initial Assessment Discussed patient with Provider [...] file. HEALTH /PRESCRIPTION COVERAGE: Medicare AB/ [place] [facility] REFERRAL: Available if needed. PRIMARY CARE PHYSICIAN: MIRNA OROSCO MD [address] [facility] [id number] POTENTIAL DISCHARGE NEEDS: 69 y/o M s/p biopsy of brain abscess and on IV abx. PT evaluation shows patient would benefit for a short stay at rehab. Met with patient at bedside and he would like to make a referral with [facility] [address] [place] [phone] . Will ask RS to please make referral using [employer]. PATIENT/FAMILY EDUCATION NEEDS: On-going ANTICIPATED BARRIERS TO DISCHARGE: Not medically ready. TRANSPORTATION @ D/C: TBD PLAN: CRC will continue to monitor progress, follow for continuity of care and assist with discharge planning while hospitalized . * Evelio Corera MD - 01/30/2015 6:21 AM EST Neurosurgery [...] 5/5 triceps, 2/5 deltoids, 2/5 trap, 5/5 executive officer special warfare team LUE:5/5 RLE: 5/5 LLE: 5/5 -Sensation intact [...] PM EST Clinical Pharmacist Note-Vanc Mirna Milton [id number] 1945 Mirna Milton is a 69 y.o. [...] have. Alternately, during off-hours you may call [phone] to contact a pharmacist. Tatiana Shankar PHARMD Pager [phone] * Burt Keller, PT - 01/29/2015 5:28 PM EST Physical Therapy Treatment Note Visit #: 2 Patient Dx: Mirna Milton is a 69 y.o. male patient of Dr. Santiago, Jose Torres MD, admitted on 01/27/2015 from [facility] for evaluation of brain mass. Pt s/p stereotactic biopsy. Social History: Patient lives with his . Pt is retired from [employer]. is available, has a flexible schedule (sells [...] above, and pt aware to call for medical staff specialist assistance with all mobility. Staff Communication: Patient [...] Total timed interventions: 35 minutes-functional mobility. Pager: [phone] Burt Keller, PT Physical Therapy Rehabilitation Department [...] interventions: 38 minutes functional there ex Pager: [phone] KAITLYN Barron 01/29/2015 Occupational Therapy Rehabilitation Department * Elizabeth Orellana - 01/29/2015 8:09 AM EST NEUROSURGERY PROGRESS NOTE Mirna Milton [id number] 1945 ID: 69 y.o. gentleman with brain [...] 5/5 triceps, 2/5 deltoids, 2/5 trap, 5/5 executive officer special warfare team LUE:5/5 RLE: 5/5 LLE: 5/5 No pronator [...] AM EST NEUROSURGERY PROGRESS NOTE Mirna Milton [id number] 1945 ID: 69 y.o. gentleman with brain [...] 5/5 triceps, 2/5 deltoids, 2/5 trap, 5/5 executive officer special warfare team LUE:5/5 RLE: 5/5 LLE: 5/5 No pronator [...] have been asked by Dr. Damian of [facility] to see Mirna Milton, a 69 y/o [...] have been asked by Dr. Damian of [facility] to see Mirna Milton, a 69 y/o [...] of abnormal enhancement, or restricted diffusion. MRA cheesh-na of Dick: Intracranial internal carotid arteries are normal in caliber bilaterally. MCA, HARRY, and visualized branches are normal. There is relatively poor flow related enhancement of a portion of the intradural vertebral artery. The left intradural vertebral artery is normal. Basilar artery is normal in caliber. Posterior cerebral arteries are unremarkable. MRA neck: 2-D atan-qq-ooxyhy images demonstrate normal antegrade flow in the [...] Data: None Discharge Conditions/Prognosis: Stable Discharge to: [place], [place] Discharge Medications: Your Medications New Medications [...] schedule, please call the nurse practitioner at [phone] or your Neurosurgeon. [X] Pepcid You are [...] appointment with Neurosurgery Shower/Bath: [place] Wound Care: Laura out 2 weeks after surgery - on [...] Nurse (Latisha Parra) Inpatient Nurses Neurosurgical Resident Residential Advisor (after 5pm or before 8am) Neurosurgery offices (between 8am-5pm): Dr. Santiago Dr. Ceron (pediatric neurosurgery) Dr. Tello: Pediatric Patients , Adult Patients Dr. Forrester Dr. Delgado Dr. Galvez Dr. Interiano Juaquin Madera, Physician Funeral Service Manager Sharlene Lorenzana, Nurse Practitioner Juaquin Short, Physician Funeral Service Manager Kisha Teixeira, Nurse Practitioner CC: MIRNA OROSCO MD Future Appointments and Orders Future Appointments Provider Department Dept Phone 01/31/2015 3:45 PM Echo Inpatient Add-On Non-Invasive Cardiology Lab [phone] 02/14/2015 11:30 AM Iraj Hernandez MD Infectious Disease [phone] 03/09/2015 10:30 AM Gaudencio Mata MD Infectious Disease [phone] Future Orders Complete By Expires OPAT: Order / Recommendation for Post Discharge IV Antibiotic Management [ZDI670 CPT(R)] As directed Process Instructions: If no progress note charted, please enter Clinical details in comments. Scheduling Instructions: Comments: Please Fax all results to: OPAT Program Infectious Disease Section [facility], [place] [address] FAX: Line care instructions per [facility] OPAT Program protocol. After hours, please contact the Infectious Disease Physician health economist at . If this order was signed greater than 72 hours prior to [facility] discharge, please call to confirm the accuracy [...] needs. PLAN MOVING FORWARD: Expected d/c to [facility] when medically appropriate. TTE in AM. Continue toencourage mobilization/ strengthening. Monitor Lyons-hole incisions. INDIVIDUALIZED FALL PREVENTION: Assistance: 2-assist out [...] Health Knowledge, Opportunity for Enhanced (Adult, NICU, [place], Obstetrics, Pediatric) Goal: Identify Signs and Symptoms [...] be absent or manageable (reference (Craniotomy/Craniectomy/Cranioplasty (Adult)) [facility] 01/30/15 1539 Craniotomy/Craniectomy/Cranioplasty Problems Assessed (Craniotomy/Craniectomy/Cranioplasty) all Problems Present (Craniotomy/Craniectomy/Cranioplasty) none * Op Note - Jose Santiago MD - 01/30/2015 6:30 AM EST [facility] Operative Note Patient Name: Mirna Milton : [id number] MR#: [id number] Case Date: 01/27/2015 Surgeon: Surgeon(s) and Role: * Jose Santiago MD - Primary * Jeffery Kahn MD - Resident-Surgeon Dinh * Dustin Parker MD - Resident-Surgeon Chief Preoperative diagnosis: ABSCESS Postoperative diagnosis: ABSCESS Procedure(s): @STEREOTACTIC BX,ASP, OR EXC.-INTRACRANIAL LESION, W/SCAN STEREOTACTIC COMPUTER-ASSTD NAVIGATIONAL CRANIAL INTRADURAL Indications: The patient is a 69-year-old male transferred to [facility] for evaluation of a right frontal [...] Stealth. After coregistration was performed with the Singlyalth navigation system, the biopsy plan was then [...] then reflected away from the skull. A account consultant was then used to create a merritt hole. The Stealth stereotactic biopsy kit was [...] with his . Pt is retired from [employer]. is available, has a flexible schedule (sells [...] interventions: 15 minutes functional there ex Pager: [phone] Diane Barcenas OT 01/28/2015 Occupational Therapy Rehabilitation [...] lesion ?metastasis so patient was transferred to [facility] for further care. At [facility] patient was evaluated by neurosurgery and review [...] recent travel, no drugs,No pets Lived in [place] all his life,no travel in the past [...] suspicious for metastasis so was transferred to [facility] for definitive management.At [facility] neurosurgery eval s/p OR with stereotactic biopsy [...] will continue to follow the patient,please page [phone] with questions Above recommendations were communicated with the primary team x Recommendations discussed with primary team. Consult service will continue to follow patient. Recommendations discussed with primary team. ID will sign off. Please page [phone] if further consultation required. Case discussed with ID attending Dr.Zuckerman Gaudencio Mata MD, Fellow, Infectious Disease Pager [phone] Attending Addendum: I have seen and examined [...] OUTCOME EVALUATION NOTE: OUTCOME SUMMARY: Pt s/p merritt holes for brain abscess. Neuro Aaox4, PERRLA, [...] with his . Pt is retired from [employer]. is available, has a flexible schedule (sells [...] and push walker forward; his elbow and executive officer special warfare team are strong, but shoulder is weak. He [...] minutes Total timed interventions: 10 minutes Pager: [phone] Juaquin Solano, PT 01/28/2015 Physical Therapy Rehabilitation Department * Plan of Care - Stiven Poe LPN - 01/28/2015 10:09 AM EST Problem: Health Knowledge, Opportunity for Enhanced (Adult, NICU, Clearbrook, Obstetrics, Pediatric) Goal: Knowledgeable about Health Subject/Topic Patient will demonstrate the desired outcomes. Outcome: Outcome (s) achieved Date Met: 01/28/15 Peripherally Inserted Central Catheter (PICC) Teaching Sheet Peripherally inserted central catheters (orpk-ct-gxko) (PICC) are used when you need IV [...] midline catheter? PICC lines are used for termite treater helper treatments. PICC lines may be used for [...] can be set up via the nurse Unit Support Representative to help you. What are possible complications [...] Operative Note Patient Name: Mirna Milton : [id number] MR#: [id number] Case Date: 01/27/2015 Surgeon: Surgeon(s) and Role: [...] in this encounter Plan of Treatment Scheduled Orders Name Type Priority Associated Diagnoses Orde r Schedule Place PICC Line: Contact Vascular Access Page [phone] Procedures Routine One Time for 1 Occurrences [...] 5:34 AM EST DIFFERENTIAL, AUTOMATED Routine 01/30/20 5:34 AM EST CBC (WITH DIFF) Routine [...] * POCT Glucose (01/31/2015 11:40 AM EST) [facility] Glucose, POC 106 60 - 199 mg/dL [facility] Comment: Supplemental ranges: <140 mg/dL before meals <180 mg/dL all other times of the day Blood specimen (specimen) 01/31/2015 11:40 AM EST 01/31/2015 11:40 AM EST Jose Santiago MD POINT OF CARE TEST O RDERABLES [facility] * Echocardiogram Transthoracic(Leb) (01/31/2015 11:36 AM EST) EF 70 HEARTLAB SYSTEM Anatomical Region Laterality Modality Other 01/31/2015 Narrative 01/31/2015 12:30 PM EST Amended Report Procedure: ? Transthoracic Echocardiogram Patient: ? YOAN Haines ? (Age): 1945(69) Med Rec#: ?[id number] ? Sex: ?M ? Site Loc: ?[facility] ? Ht / Wt: ??188(cm)/98(kg) Pt. Loc: ? Adult Floor ?BSA: ?2.26 Study Date: ?01/31/2015 ? Pt. Type: Inpatient Tape: ?Epiq1 ? Referring: Jose Santiago Referring: ORLANDO DAMIAN Evp Business Development: Olga Lidia Cevallos Diagnosis: ??Bacteremia (790.7) CPT Code(s): ??Echo Full (42331), ??Spectral Doppler (18734), ??Color Doppler (92021), Indication(s):Rhythm: Sinus HR ?BP ?148/74 ?? SUMMARY: [...] ? Mid-Inferior ?Normal ? Mid-Inferoseptal ?Normal ? Sontag-Septal ? Normal ? Sontag-Anterior ? Normal ? Sontag-Lateral ?Normal ? Sontag-Inferior ? Normal ? Sontag-Tip ?Normal ? Chambers ?Value ?Units (Range) ? [...] 01/31/2015 12:29:59 Images reviewed and interpretation verified [facility] Cardiac Ultrasound Laboratory Procedure Note Riley Huitron MD - 01/31/2015 Amended Report Procedure: Transthoracic Echocardiogram Patient: YOAN Haines DOB(Age): 1945(69) Med Rec#: [id number] Sex: M Site Loc: [facility] Ht / Wt: 188(cm)/98(kg) Pt. Loc: Adult Floor BSA: 2.26 Study Date: 01/31/2015 Pt. Type: Inpatient Tape: Epiq1 Referring: Jose Santiago Referring: ORLANDO DAMIAN Evp Business Development: Olga Lidia Cevallos Diagnosis: Bacteremia (790.7) CPT Code(s): Echo Full (82303), Spectral Doppler (61563), Color Doppler (34822), Indication(s):Rhythm: Sinus HR BP 148/74 SUMMARY: 1. [...] Normal Mid-Posterolateral Normal Mid-Inferior Normal Mid-Inferoseptal Normal Sontag-Septal Normal Sontag-Anterior Normal Sontag-Lateral Normal Sontag-Inferior Normal Sontag-Tip Normal Chambers Value Units (Range) LV EF [...] 01/31/2015 12:29:59 Images reviewed and interpretation verified [facility] Cardiac Ultrasound Laboratory Jose Santiago MD ECHO ORDERABLES * POCT Glucose (01/31/2015 7:04 AM EST) [facility] Glucose, POC 98 60 - 199 mg/dL [...] * (ABNORMAL) Hemogram (01/31/2015 6:02 AM EST) Pathologist [facility] White Blood Cell 8.7 4.0 - 10.0 [...] Jose Santiago MD HEMATOLOGY ORDERABLE S [facility]ERTON[facility] SPENCERENNIUM * (ABNORMAL) Basic Metabolic Panel (non-fasting) (01/31/2015 6:02 AM EST) Pathologist [facility] Glucose 123 60 - 199 mg/dL [facility] Comment:Diabetes: >=200 mg/d L plus symptoms Blood Urea Nitrogen 24(H) 10 - 20 mg/dL [facility] Creatinine 0.76(L) 0.80 - 1.50 mg/dL [facility] Comment: Please note that the pediatric reference intervals supplied above were not validated at [facility]. Results from pediatric patients should be interpreted [...] the following links into your internet browser. [email or web address] Blood specimen (specimen) 01/31/2015 6:02 AM EST 01/31/2015 6:06 AM EST Narrative Resulting Agency Comment Spec In Lab Jose Santiago MD CHEMISTRY ORDERABLES Performing Organization Address [facility] Co de Phone Number KIMBERLYN BLACKWELL * POCT Glucose (01/30/2015 4:23 PM EST) Glucose, POC 118 60 - 199 mg/dL [facility] Comment: Supplemental ranges: <140 mg/dL before meals <180 mg/dL all other times of the day Blood specimen (specimen) 01/30/2015 4:23 PM EST 01/30/2015 4:23 PM EST Jose Santiago MD POINT OF CARE TEST O RDERABLES Performing Organization Address [facility] Co de Phone Number KIMBERLYN BLACKWELL * POCT Glucose (01/30/2015 11:53 AM EST) Pathologist [facility] Glucose, POC 101 60 - 199 mg/dL [facility] Comment: Supplemental ranges: <140 mg/dL before meals <180 mg/dL all other times of the day Blood specimen (specimen) 01/30/2015 11:53 AM EST 01/30/2015 11:53 AM EST Jose Santiago MD POINT OF CARE TEST O RDERABLES [facility] TJENNIUM * Scan, Peripheral Blood (01/30/2015 10:08 AM EST) [facility] Plat estimate Normal [facility]ERNER MILLENNIUM RBC Morphology Normal CERNE R MILLENNIUM Blood specimen (specimen) 01/30/2015 10:08 AM EST 01/30/2015 10:16 AM EST Narrative Resulting Agency Comment Spec In Lab Jose Santiago MD HEMATOLOGY ORDERABLE S [facility] MILLENNIUM * (ABNORMAL) Differential, Automated (01/30/2015 10:08 AM EST) Pathologist [facility] Neutrophil % 84.0 % CERNER MILLENNIUM Neutrophil [...] MD HEMATOLOGY ORDERABLE S Performing Organization Address City/State/[facility] Co de Phone Number CERNER MILLENNIUM * (ABNORMAL) Hemogram (01/30/2015 10:08 [...] Lab Jose Santiago MD HEMATOLOGY ORDERABLE S [facility] * (ABNORMAL) Basic Metabolic Panel (non-fasting) (01/30/2015 10:00 AM EST) Glucose 96 60 - 199 mg/dL [facility] Comment:Diabetes: >=200 mg/d L plus symptoms Blood Urea Nitrogen 24(H) 10 - 20 mg/dL [facility] MILLENNIUM Creatinine 0.72(L) 0.80 - 1.50 mg/dL [facility] MILLENNI[facility] Comment: Please note that the pediatric reference intervals supplied above were not validated at [facility]. Results from pediatric patients should be interpreted [...] the following links into your internet browser. [email or web address] Blood specimen (specimen) 01/30/2015 10:00 AM EST 01/30/2015 10:16 AM EST Narrative Resulting Agency Comment Spec In Lab Jose Santiago MD CHEMISTRY ORDERABLES Performing Organization Address City/State/[facility] de Phone Number [facility] * POCT Glucose (01/30/2015 8:09 AM EST) Glucose, POC 175 60 - 199 mg/dL [facility] Comment: Supplemental ranges: <140 mg/dL before meals <180 mg/dL all other times of the day Blood specimen (specimen) 01/30/2015 8:09 AM EST 01/30/2015 8:09 AM EST Jose Santiago MD POINT OF CARE TEST O RDERABLES Performing Organization Address [facility] Phone Number [facility] * (ABNORMAL) POCT Glucose (01/30/2015 8:07 AM EST) Glucose, POC 577(Critic al) 60 - 199 mg/dL [facility] Comment: Supplemental ranges: <140 mg/dL before meals <180 mg/dL all other times of the day Blood specimen (specimen) 01/30/2015 8:07 AM EST 01/30/2015 8:07 AM EST Jose Santiago MD POINT OF CARE TEST O RDERAKEIRY Performing Organization Address [facility] Phone Number [facility] * POCT Glucose (01/29/2015 8:37 PM EST) Glucose, POC 121 60 - 199 mg/dL [facility] Comment: Supplemental ranges: <140 mg/dL before meals <180 mg/dL all other times of the day Blood specimen (specimen) 01/29/2015 8:37 PM EST 01/29/2015 8:37 PM EST Jose Santiago MD POINT OF CARE TEST O RDERAKEIRY Performing Organization Address [facility] de Phone Number [facility] * (ABNORMAL) Vancomycin, trough (01/29/2015 4:15 PM EST) Vancomycin, Trough 30.5(Crit ical) mg/L [facility] Comment: Called by: mariaelena, Read back by: [...] Santiago MD CHEMISTRY ORDERABLES Performing Organization Address [facility] Phone Number [facility] * POCT Glucose (01/29/2015 3:59 PM EST) Glucose, POC 117 60 - 199 mg/dL [facility] Comment: Supplemental ranges: <140 mg/dL before meals <180 mg/dL all other times of the day Blood specimen (specimen) 01/29/2015 3:59 PM EST 01/29/2015 3:59 PM EST Jose Santiago MD POINT OF CARE TEST O RDERABLES Performing Organization Address [facility] Phone Number [facility] * POCT Glucose (01/29/2015 11:33 AM EST) Glucose, POC 117 60 - 199 mg/dL [facility] Comment: Supplemental ranges: <140 mg/dL before meals <180 mg/dL all other times of the day Blood specimen (specimen) 01/29/2015 11:33 AM EST 01/29/2015 11:33 AM EST Jose Santiago MD POINT OF CARE TEST O RDERABLES Performing Organization Address [facility] Phone Number [facility] * POCT Glucose (01/29/2015 7:16 AM EST) [...] Metabolic Panel (non-fasting) (01/29/2015 5:34 AM EST) Glucose 126 60 - 199 mg/dL [facility] Comment:Diabetes: >=200 mg/d L plus symptoms Blood Urea Nitrogen 21(H) 10 - 20 mg/dL [facility] MILLENNIUM Creatinine 0.77(L) 0.80 - 1.50 mg/dL [facility] MILLENNIUM Comment: Please note that the pediatric reference intervals supplied above were not validated at [facility]. Results from pediatric patients should be interpreted [...] the following links into your internet browser. [email or web address] Blood specimen (specimen) 01/29/2015 5:34 AM EST 01/29/2015 5:57 AM EST Narrative Resulting Agency Comment Spec In Lab Jose Santiago MD CHEMISTRY ORDERABLES [facility] * POCT Glucose (01/28/2015 4:41 PM EST) [facility] Signature Glucose, POC 118 60 - 199 mg/dL CERNER MILLENNIUM Comment: Supplemental ranges: <140 mg/dL before meals <180 mg/dL all other times of the day Blood specimen (specimen) 01/28/2015 4:41 PM EST 01/28/2015 4:41 PM EST Jose Santiago MD POINT OF CARE TEST O RDERABLES Performing Organization Address [facility] de Phone Number [facility] * POCT Glucose (01/28/2015 12:29 PM EST) Glucose, POC 118 60 - 199 mg/dL [facility] Comment: Supplemental ranges: <140 mg/dL before meals <180 mg/dL all other times of the day Blood specimen (specimen) 01/28/2015 12:29 PM EST 01/28/2015 12:29 PM EST Jose Santiago MD POINT OF CARE TEST O RDERABLES Performing Organization Address [facility] de Phone Number [facility] * XR VAS venous access (PICC placement) (01/28/2015 11:53 AM EST) Anatomical Region Laterality Modality N/A Radiographic Meagan ging 01/28/2015 11:5 3 AM EST Narrative 01/28/2015 12:00 PM EST EXAMINATION: PLACEMENT PICC LINE (IV TEAM) Over 5 yrs/XCARM CLINICAL HISTORY: brain mass access/abx ??4 kinyarwanda 1 lumen ??no restrictions TECHNIQUE: C-arm placement of PICC. Limited view of the line tip only. FINDINGS: Intraprocedural frontal radiograph of the mediastinum demonstrates a Right PICC, with the catheter tip projected at the mid SVC. Procedure Note Yaima Monet MD - 01/28/2015 EXAMINATION: PLACEMENT PICC LINE (IV TEAM) Over 5 yrs/XCARM CLINICAL HISTORY: brain mass access/abx 4 kinyarwanda 1 lumen norestrictions TECHNIQUE: C-arm placement of [...] Lab Jose Santiago MD HEMATOLOGY ORDERABLE S [facility] * (ABNORMAL) Basic Metabolic Panel (non-fasting) (01/28/2015 2:46 AM EST) Pathologist [facility] Glucose 131 60 - 199 mg/dL CERNER MILLENNIUM Comment:Diabetes: >=200 mg/d L plus symptoms Blood Urea Nitrogen 21(H) 10 - 20 mg/dL CERNER MILLENNIUM Creatinine 0.86 0.80 - 1.50 mg/dL CERNER MILLENNIUM Comment: Please note that the pediatric reference intervals supplied above were not validated at [facility]. Results from pediatric patients should be interpreted [...] the following links into your internet browser. [email or web address] Blood specimen (specimen) 01/28/2015 2:46 AM EST 01/28/2015 2:55 AM EST Narrative Resulting Agency Comment Spec In Lab Jose Santiago MD CHEMISTRY ORDERABLES Performing Organization Address [facility] de Phone Number [facility] * POCT Glucose (01/27/2015 8:44 PM EST) Glucose, POC 154 60 - 199 mg/dL CERNER MILLENNIUM Comment: Supplemental ranges: <140 mg/dL before meals <180 mg/dL all other times of the day Blood specimen (specimen) 01/27/2015 8:44 PM EST 01/27/2015 8:44 PM EST Jose Santiago MD POINT OF CARE TEST O RDERABLES Performing Organization Address [facility] Co de Phone Number [facility]N [facility]ACK[facility] * Pathology Addendum Report (01/27/2015 5:35 PM EST) Addendum Report ? [facility] ? Provider: ?? JOSE SANTIAGO ? Pt. Name: ?? YOAN MIRNA Zaki ? Acc #: ?[id number] ?Pt. ? Col Date: ?? 01/27/2015 ? [...] ? from the tissue. ? 02/02/15 ? [facility] ? 02/02/15 Verified by: ? Oswaldo HOOD, Jimbo Lyons ? Pathologist ? (Electronic Signature) ? The attending pathologist whose signature appears on this report has ? reviewed all diagnostic slides and has edited the gross and/or ? microscopic portion of the report in rendering the final pathologic ? diagnosis. [facility]ACK[facility] 01/27/2015 5:35 PM EST Jose Santiago MD PATHOLOGY/CYTOLOGY Daisy HAYNES KIMBERLYN SPENCERBANNERRANGEL * Surgical Pathology Report (01/27/2015 5:35 PM EST) Final Diagnosis [id number] ? Location: [facility]; [facility]; A The signing pathologist has (i) examined [...] Streptococcus milleri cultured from the tissue. 02/02/15 [facility] 02/02/15 Verified by: ? Oswaldo HOOD, Jimbo [...] many bacterial colonies and fragments of inflamed/reactive PROSTHETIST parenchyma (B) Small fragments of brain parenchyma with reactive and inflammatory changes. (C) Small fragments of brain parenchyma with reactive and inflammatory changes. (D) Small fragments of brain parenchyma with reactive and inflammatory changes. (E) Pus containing many bacterial colonies and fragments of inflamed/reactive PROSTHETIST parenchyma 01/31/15 [facility] 01/31/15 Verified by: ? Jimbo Chacon MD ?Pathologist ?(Electronic Signature) The attending pathologist whose signature appears on this report has reviewed all diagnostic slides and has edited the gross and/or microscopic portion of the report in rendering the final pathologic diagnosis. Comment This pathological process is infectious, not neoplastic. ??It is a bacterial abscess from [facility] h Streptococcus milleri has been cultured. ??Special stains have been ordered to determine if other organisms may also be present; those results will be reported as an addendum, when available. 02/02/2015 12:57 PM EST [facility] BRAIN STRUCTURE / Unknown 01/27/2015 [...] EST Jose Santiago MD PATHOLOGY/[place] [address] * Specimen to Pathology (surgical or derm) (01/27/2015 5:35 PM EST) AP Specimen 01/27/2015 5:35 PM EST 01/27/2015 5:35 PM EST Narrative [facility] - 01/27/2015 5:35 PM EST Specimen requisition ordered. ??Separate Pathology report to follow Jose Santiago MD PATHOLOGY/CYTOLOGY O RDERABLES [facility] * Specimen to Pathology (surgical or derm) (01/27/2015 5:35 PM EST) AP Specimen 01/27/2015 5:35 PM EST 01/27/2015 5:35 PM EST Narrative [facility] - 01/27/2015 5:35 PM EST Specimen requisition ordered. ??Separate Pathology report to follow Jose Santiago MD PATHOLOGY/CYTOLOGY O RDNIKOLE Performing Organization Address [facility] Co de Phone Number [facility] * Specimen to Pathology (surgical or derm) (01/27/2015 5:35 PM EST) AP Specimen 01/27/2015 5:35 PM EST 01/27/2015 5:35 PM EST Narrative [facility] - 01/27/2015 5:35 PM EST Specimen requisition ordered. ??Separate Pathology report to follow Jose Santiago MD PATHOLOGY/CYTOLOGY O IVY Performing Organization Address [facility] Co de Phone Number [facility] * Specimen to Pathology (surgical or derm) (01/27/2015 5:35 PM EST) AP Specimen 01/27/2015 5:35 PM EST 01/27/2015 5:35 PM EST Narrative [facility] - 01/27/2015 5:35 PM EST Specimen requisition ordered. ??Separate Pathology report to follow Jose Santiago MD PATHOLOGY/CYTOLOGY O IVY Performing Organization Address [facility] Co de Phone Number [facility] * Specimen to Pathology (surgical or derm) (01/27/2015 5:35 PM EST) AP Specimen 01/27/2015 5:35 PM EST 01/27/2015 5:35 PM EST Narrative [facility] - 01/27/2015 5:35 PM EST Specimen requisition ordered. ??Separate Pathology report to follow Jose Santiago MD PATHOLOGY/CYTOLOGY O IVY Performing Organization Address [facility] Co de Phone Number [facility] * Anaerobic Culture (01/27/2015 5:25 PM EST) Anaerobic Culture ? Patient Name: MIRNA MILTON ?Ordered By: JOSE SANTIAGO ? MR#: [id number] ?LOC: ??5WST ? /Sex: ??1945 (69 years), ? Male ? PROCEDURE: Anaerobic Culture ?SOURCE: Other ? COLLECTED: 01/27/2015 17:25 ?FREE TEXT SOURCE: ? abscess vs tumor ? STARTED: 01/27/2015 17:38 ? FINAL REPORT ? Final Report ? Verified:2014 13:14 ? No anaerobic organisms isolated ? PRELIMINARY REPORT ? Preliminary Report ? Verified:2014 12:58 ? No anaerobic organisms isolated to date ? KIMBERLYN ERVINIUM Specimen of unknown material (specimen) 01/27/2015 5:25 PM EST 01/27/2015 5:38 PM EST Comment:? ABSCESS VS TUMOR Narrative Resulting Agency Comment Spec In Lab Jose Santiago MD MICROBIOLOGY - GENER AL ORDERABLES KIMBERLYN SPENCERENNIUM * Tissue culture (01/27/2015 5:25 PM EST) Tissue Culture ? Patient Name: MIRNA MILTON ?Ordered By: JOSE SANTIAGO ? MR#: [id number] ?LOC: ??5WST ? /Sex: ??1945 (69 years), [...] ble ? Patient: MIRNA MILTON ? MR#: [id number] ? FOOTNOTES ? (1) ? Penicillin susceptible Streptococci species can be considered susceptible ? to Ampicillin, ? Ampicillin-Sulbac singer, Amoxicillin, Amoxicillin-Clavu lanate, Ceftriaxone and ? Meropenem. ? CERNER MILLENNIUM Specimen of unknown material (specimen) 01/27/2015 5:25 PM EST 01/27/2015 5:38 PM EST Comment:? ABSCESS VS TUMOR Narrative Resulting Agency Comment Spec In Lab Jose Santiago MD MICROBIOLOGY - GENER AL ORDERABLES [facility] * Anaerobic Culture (01/27/2015 5:18 PM EST) Anaerobic Culture ? Patient Name: MIRNA MILTON ?Ordered By: JOSE SANTIAGO ? MR#: [id number] ?LOC: ??5WST ? /Sex: ??1945 (69 years), ? Male ? PROCEDURE: Anaerobic Culture ?SOURCE: Other ? COLLECTED: 01/27/2015 17:18 ?FREE TEXT SOURCE: Abscess vs Tumor #3 ? STARTED: 01/27/2015 17:59 ? FINAL REPORT ? Final Report ? Verified:2014 13:14 ? No anaerobic organisms isolated ? PRELIMINARY REPORT ? Preliminary Report ? Verified:2014 12:59 ? No anaerobic organisms isolated to date ? [facility] Specimen of unknown material (specimen) 01/27/2015 5:18 PM EST 01/27/2015 5:59 PM EST Comment:ABSCESS VS TUMOR #3 Narrative Resulting Agency Comment Spec In Lab Jose Santiago MD MICROBIOLOGY - GENER AL ORDERABLES [facility] * Tissue culture (01/27/2015 5:18 PM EST) Tissue Culture ? Patient Name: MIRNA MILTON ?Ordered By: JOSE SANTIAGO ? MR#: [id number] ?LOC: ??5WST ? /Sex: ??1945 (69 years), [...] Santiago MD MICROBIOLOGY - GENER AL ORDERABLES [facility] * Anaerobic Culture (01/27/2015 5:18 PM EST) Anaerobic Culture ? Patient Name: MIRNA MILTON ?Ordered By: JOSE SANTIAGO ? MR#: [id number] ?LOC: ??5WST ? /Sex: ??1945 (69 years), ? Male ? PROCEDURE: Anaerobic Culture ?SOURCE: Other ? COLLECTED: 01/27/2015 17:18 ?FREE TEXT SOURCE: Abscess vs Tumor #2 ? STARTED: 01/27/2015 17:59 ? FINAL REPORT ? Final Report ? Verified:2014 13:14 ? No anaerobic organisms isolated ? PRELIMINARY REPORT ? Preliminary Report ? Verified:2014 12:58 ? No anaerobic organisms isolated to date ? KIMBERLYN ERVINIUM Specimen of unknown material (specimen) 01/27/2015 5:18 PM EST 01/27/2015 5:59 PM EST Comment:ABSCESS VS TUMOR #2 Narrative Resulting Agency Comment Spec In Lab Jose Santiago MD MICROBIOLOGY - GENER AL ORDERABLES [facility] * Tissue culture (01/27/2015 5:18 PM EST) Tissue Culture ? Patient Name: MIRNA MILTON ?Ordered By: JOSE SANTIAGO ? MR#: [id number] ?LOC: ??5WST ? /Sex: ??1945 (69 years), [...] milleri group ? Susceptibilities previously reported ? [facility] Specimen of unknown material (specimen) 01/27/2015 5:18 PM EST 01/27/2015 5:59 PM EST Comment:ABSCESS VS TUMOR #2 Narrative Resulting Agency Comment Spec In Lab Jose Santiago MD MICROBIOLOGY - GENER AL ORDERABLES Performing Organization Address City/State/[facility] Co de Phone Number [facility] * MRI brain with contrast (01/27/2015 3:56 [...] Urine Dipstick Hazy(A) Clear CERNER MILLENNIUM Specific [place] Urine Automated 1.026 1.002 - 1.030 CERNER [...] In Lab Jose Santiago MD URINE ORDERABLES Performing Organization Address [facility] Co de Phone Number [facility] * Urine culture Clean Catch Urine (01/27/2015 3:22 PM EST) Urine Culture ? Patient Name: MIRNA MILTON ?Ordered By: JOSE SANTIAGO ? MR#: [id number] ?LOC: ??5WST ? /Sex: [birth year] (69 years), ? Male ? PROCEDURE: Urine Culture ?SOURCE: U CC ? COLLECTED: 01/27/2015 15:22 ? STARTED: 01/27/2015 16:34 ? FINAL REPORT ? Final Report ? Verified: 15:25 ? No growth (Less than 1,000 cfu/ml). ? ____ [facility] Urine specimen obtained by clean catch procedure (specimen) 01/27/2015 3:22 PM EST 01/27/2015 4:34 PM EST Narrative Resulting Agency Comment Spec In Lab Jose Santiago MD MICROBIOLOGY - GENER AL ORDERABLES Performing Organization Address [facility] Co de Phone Number [facility] * Prepare Platelets, Apheresis (01/27/2015 2:50 PM EST) Dispensed? Yes KIMBERLYN BLACKWELL Blood specimen (specimen) 01/27/2015 2:50 PM EST 01/27/2015 2:50 PM EST Jose Santiago MD BLOOD BANK PRODUCT O RDERABLES [facility] * Blood culture (01/27/2015 2:45 PM EST) Blood Culture ? Patient Name: MIRNA MILTON ?Ordered By: JOSE SANTIAGO ? MR#: [id number] ?LOC: ??5WST ? /Sex: ??1945 (69 years), [...] No growth at 4 days. ? CERNER MILLENNIUM Blood specimen (specimen) ANTECUBITAL REGION STRUCTURE / Unknown 01/27/2015 2:45 PM EST 01/27/2015 3:02 PM EST Comment:#2 Narrative Resulting Agency Comment Spec In Lab Jose Santiago MD MICROBIOLOGY - BLOOD ORDERABLES KIMBERLYN SPENCERENNIUM * Scanlon Hold (01/27/2015 2:40 PM EST) Scanlon Hold Sample in lab. KIMBERLYN SPENCERENNIUM Blood specimen (specimen) Venous Draw / Unknown 01/27/2015 2:40 PM EST 01/27/2015 2:55 PM EST Jose Santiago MD CHEMISTRY ORDERABLES Performing Organization Address City/[facility]/ZIP Co de Phone Number CERTONI SPENCERENNIUM * (ABNORMAL) Differential, Automated (01/27/2015 [...] MD HEMATOLOGY ORDERABLE S Performing Organization Address City/[facility]/ZIP Co de Phone Number CERNER MILLENNIUM * (ABNORMAL) Hemogram (01/27/2015 2:40 [...] MD HEMATOLOGY ORDERABLE S Performing Organization Address City/[facility]/ZIP Co de Phone Number CERNER MILLENNIUM * Antibody screen (01/27/2015 2:40 PM EST) Ab Screen Interp Negative CERNER MILLENNIUM Expires at [id number] on: [id number] [facility]IMBER[facility]N [facility]ACK[facility]LL Blood specimen (specimen) 01/27/2015 2:40 PM EST 01/27/2015 2:51 PM EST Narrative Resulting Agency Comment Spec In Lab Jose Santiago MD BLOOD BANK LAB ORDER PARK Performing Organization Address [facility] de Phone Number [facility] T[facility] * ABO/Rh Typing (01/27/2015 2:40 PM EST) Pathologist [facility] ABORH Type A Neg KIMBERLYN BLACKWELL Blood specimen (specimen) 01/27/2015 2:40 PM EST 01/27/2015 2:51 PM EST Narrative Resulting Agency Comment Spec In Lab Jose Santiago MD BLOOD BANK LAB ORDER PARK Performing Organization Address [facility] de Phone Number [facility] * Sedimentation rate (01/27/2015 2:40 PM EST) Pathologist [facility] Sedimentation Rate Automated 11 0 - 15 mm/hr [facility] Blood specimen (specimen) 01/27/2015 2:40 PM EST 01/27/2015 2:54 PM EST Narrative Resulting Agency Comment Spec In Lab Jose Santiago MD HEMATOLOGY ORDERABLE S Performing Organization Address [facility] de Phone Number [facility] * High Sensitivity CRP (01/27/2015 2:40 PM EST) [facility] C-Reactive Protein High Sensitivity 7.3 mg/L [facility] Comment: Interpretations: 1) For accurate cardiac [...] In Lab Jose Santiago MD CHEMISTRY ORDERABLES [facility] * Blood culture (01/27/2015 2:40 PM EST) Blood Culture ? Patient Name: MIRNA MILTON ?Ordered By: JOSE SANTIAGO ? MR#: [id number] ?LOC: ??5WST ? /Sex: ??1945 (69 years), ? Male ? PROCEDURE: Blood Culture ?SOURCE: Blood ? COLLECTED: 01/27/2015 14:40 ? BODY SITE: Right Antecubital ? STARTED: 01/27/2015 15:02 ?FREE TEXT SOURCE: #1 ? FINAL REPORT ? Final Report ? Verified:2014 23:01 ? No growth at 5 days. ? PRELIMINARY REPORT ? Preliminary Report ? Verified:2014 23:01 ? No growth at 4 days. ? [facility] MILLENNIUM Blood specimen (specimen) ANTECUBITAL REGION STRUCTURE / Unknown 01/27/2015 2:40 PM EST 01/27/2015 3:02 PM EST Comment:#1 Narrative Resulting Agency Comment Spec In Lab Jose Santiago MD MICROBIOLOGY - BLOOD ORDERABLES Performing Organization Address [facility] Phone Number [facility] SPENCERBANNERI[facility] * APTT (01/27/2015 2:40 PM EST) Partial Thromboplastin Time 31 25 - [address] [facility] [facility] Comment: Recommended therapeutic PTT range for full dose unfractionated heparin is 80-114 seconds. Blood specimen (specimen) 01/27/2015 2:40 PM EST 01/27/2015 2:54 PM EST Narrative Resulting Agency Comment Spec In Lab Jose Santiago MD HEMATOLOGY ORDERABLE S Performing Organization Address [facility] Phone Number [facility] TJBANNERIUM * Prothrombin Time (01/27/2015 2:40 PM EST) Prothrombin Time 14.8 12.5 - 15.[address] [facility] Comment: Transfusion Committee Guidelines: INR less than 2.0, PTT less than OR equal to 43.5 seconds, or Fibrinogen greater than or equal to 100 mg/dl indicate adequate procoagulant activity for hemostasis in patients without underlying bleeding disorders. International Normalization Ratio 1.1 0.9 - 1.1 [facility] Blood specimen (specimen) 01/27/2015 2:40 PM EST 01/27/2015 2:54 PM EST Narrative Resulting Agency Comment Spec In Lab Jose Santiago MD HEMATOLOGY ORDERABLE S Performing Organization Address [facility] Phone Number [facility] TJENNIUM * (ABNORMAL) Comprehensive metabolic panel (non-fasting) (01/27/2015 2:40 PM EST) [facility] Glucose 118 60 - 199 mg/dL CERNER MILLENNIUM Comment:Diabetes: >=200 mg/d L plus symptoms Blood Urea Nitrogen 22(H) 10 - 20 mg/dL CERNER MILLENNIUM Creatinine 0.91 0.80 - 1.50 mg/dL CERNER MILLENNIUM Comment: Please note that the pediatric reference intervals supplied above were not validated at [facility]. Results from pediatric patients should be interpreted [...] the following links into your internet browser. [email or web address] Blood specimen (specimen) 01/27/2015 2:40 PM EST 01/27/2015 2:54 PM EST Narrative Resulting Agency Comment Spec In Lab Jose Santiago MD CHEMISTRY ORDERABLES [facility]IM[facility] [employer] * Request for 2nd read CT Chest [...] from enlargement of the prostate gland.. Jose [facility] TATION ORDERABLES * Request for 2nd [...] intravenous administration of 20 mL Magnevist. MRA cheesh-na of Dick performed without the use of intravenous contrast. MRA of the neck performed prior to and following intravenous administration of 20 mL Magnevist. Study was performed at [facility] on 01/26/2015. COMPARISON: CT 01/24/2015, [...] of abnormal enhancement, or restricted diffusion. MRA cheesh-na of Dick: Intracranial internal carotid arteries are normal in caliber bilaterally. MCA, HARRY, and visualized branches are normal. There is relatively poor flow related enhancement of a portion of the intradural vertebral artery. The left intradural vertebral artery is normal. Basilar artery is normal in caliber. Posterior cerebral arteries are unremarkable. MRA neck: 2-D [id number] images demonstrate normal antegrade flow in the [...] intravenous administration of 20 mL Magnevist. MRA cheesh-na of Dick performed withoutthe use of intravenous contrast. MRA of the neck performed prior to andfollowing intravenous administration of 20 mL Magnevist. [facility]PAR[facility]: CT 01/24/2015, [...] area of abnormal enhancement, orrestricted diffusion. MRA cheesh-na of Dick: Intracranial internal carotid arteries are normalin caliber bilaterally. MCA, HARRY, and visualized branches are normal. Thereis relatively poor flow related enhancement of a portion of the intradural vertebral artery. The left intradural vertebral artery is normal. Basilarartery is normal in caliber. Posterior cerebral arteries are unremarkable. MRA neck: 2-D [id number]-[id number]-[id number] images demonstrate normal antegrade flow inthe carotid [...] PICA origin. Jose Santiago MD [facility] TATION ORDERABLES documented in this encounter Visit [...] 30 Minutes, Indication for (Active or Suspected): PROSTHETIST/Meningitis Given 01/31/2015 9:53 AM EST 2,000 mg [...] 30 Minutes, Indication for (Active or Suspected): PROSTHETIST/Meningitis, Restricted Antibiotic: Please indicate the most appropriate [...] 30 Minutes, Indication for (Active or Suspected): PROSTHETIST/Meningitis Given 01/28/2015 10:29 AM EST 500 mg [...] CONTINUOUS, Starting on Fri01/27/15 at 1845, Until 01/28/15 at 1358, Recovery (Recovery-Hospital Unit) New Bag [...] level. Please see MAR for scheduled level., Routine, Indication for (Active or Suspected): PROSTHETIST/Meningitis Given 01/29/2015 6:19 AM EST 1,750 mg 162. 9 mL/hr Given 01/28/2015 5:19 PM EST 1,750 [...] level. Please see MAR for scheduled level., Routine, Indication for (Active or Suspected): Other (See comment) Given 01/31/2015 4:57 AM EST 1,000 mg [...] 30 Minutes, Indication for (Active or Suspected): PROSTHETIST/Meningitis 0953 (Given - Provider: Faby Singh RN) [...] So Martinez RN)2100 (Given - Provider: Jimbo Sage, MORIAH) 08 (Given - Provider: Faby Singh RN)2056 (Given - Provider: Kyung Chang RN) 08 (Given - Provider: Faby Singh RN) lisinopril (PRINIVIL;ZESTRIL) tablet 10 mg (CANCELED) 10 mg, Oral, DAILY, First dose on Fri01/30/15 at 0900, Until Discontinued, Routine 0900 (Not Given - Provider: Faby Singh RN - Reason: Medication not available) 08 (Given - Provider: Faby Singh RN) MEROpenem (MERREM) 2 g in sodium chloride 0.9% 140 mL (CANCELED) 2 g, Intravenous, EVERY 8 HOURS, First dose on 01/28/15 at 1500, Until Discontinued, Administer over 30 Minutes, Indication for (Active or Suspected): PROSTHETIST/Meningitis, Restricted Antibiotic: Please indicate the most appropriate choice: ID Approval by Iraj Ferrer [id number] (Given - Provider: Abena Berry RN)0813 (Given - Provider: So Martinez RN)1454 (Given - Provider: So Martinez RN)2351 (Given - Provider: Kyung Chang RN) 0605 (Given - Provider: Kyung Chang RN)1408 (Given - Provider: Faby Singh RN)2302 (Given - Provider: Kyung Chang, MORIAH) 0614 (Given - Provider: Kyung Chang RN) sodium chloride 0.9 % flush 5 mL (CANCELED) 5 mL, Intravenous, 2 TIMES DAILY, First dose on Fri01/27/15 at 2100, Until Discontinued, Recovery (Recovery-Hospital Unit), Routine 812 (Given - Provider: So Martinez RN)2102 (Given - Provider: Jimbo Sage, MORIAH) vancomycin (VANCOCIN) 1,750 mg in sodium chloride 0.9% 285 mL (CANCELED)(Linked Group 5) 1,750 mg (1.75 g), Intravenous, at 162.9 mL/hr, EVERY 12 HOURS, First dose (after last reorder) on 2/28/15 at 0500, Until Discontinued, Maximum infusion rate is 1 gram/hour. If flushing of the face, neck, upper body, arms, and/or back occurs decrease infusion rate by 50% to reduce the severity of symptoms. This medication may have an associated drug lab level. Please see MAR for scheduled level., Routine, Indication for (Active or Suspected): PROSTHETIST/Meningitis 0619 (Given - Provider: Abena Berry RN)1710 [...] level. Please see MAR for scheduled level., Routine, Indication for (Active or Suspected): Other (See comment) 0444 (Given - Provider: Kyung Chang RN)1527 [...] level. Please see MAR for scheduled level., Routine, Indication for (Active or Suspected): PROSTHETIST/Meningitis And Vancomycin, trough (CANCELED) New collection, Timed, [...] Routine documented in this encounter Care Teams Dye Winch Operator Relationship Specialty Start Date End Date Mirna Orosco MD [address] [place] [address] PCP - General 01/27/15 06/30/18 documented as of this encounter
--- OUTSIDE RECORDS SUMMARY | 2024-09-25 08:45 | XMS_ITS | Encounter Summary ---
[place] [address] Care Team Providers Care Powder Monkey Name Role Phone Camacho Irwin MD Primary Care Provider [phone] [phone] Encounter Details Date Type Department Care Team (Late st Contact Info) Description 02/14/2015 10:45 AM EDT Follow-[place] [id number] Latisha Parra, RN Removal of laura Discharge [...] prior to admission. He was seen at [facility] where a head CT was performed and [...] a cane. He had been discharged to [facility] but everyone was getting sick there so he was discharged to home. He felt like he was going to have diarrhea so went into the bathroom and passed out, falling off the toilet and banging the left side of his face and breaking his nose. He was sent to [facility] where a CT scan was done which was negative. He went home using a walker but progressed to the cane a couple of days ago. The coordination has improved greatly in the left extremities. He denies weakness or numbness. His PICC site looks good. He goes to [facility] for his IV antibiotic treatment twice a day. Mr. Flores's cranial incision is well healed with skin edges well approximated without erythema, edema, drainage, or tenderness. All larua were removed. Mr. Flores knows to call with questions or concerns. He has f/u with ID later this morning. documented in this encounter Plan of Treatment Not on file documented as of this encounter Visit Diagnoses Diagnosis Removal of laura Encounter for removal of sutures documented in this encounter Care Teams Powder Monkey Relationship Specialty Start Date End Date Camacho Irwin MD [address] [place] [address] PCP - General 01/27/15 06/30/18 documented as of this encounter
--- OUTSIDE RECORDS SUMMARY | 2024-09-25 08:45 | XMS_ITS | Encounter Summary ---
[place] [address] Care Team Providers Care Header Setup Operator Name Role Phone Camacho Irwin MD Primary Care Provider [phone] [phone] Encounter Details Date Type Department Care Team (Late st Contact Info) Description 01/27/2015 4:26 PM EST Anesthesia Event [place] [phone] Luis Carlos Thacker MD [facility] [place] [address] Doris Watson CRNA [facility] [place] [address] Anesthesia Record Procedure Summary Procedure Name Responsible [...] 1447; median cubital vein right (antecubital fossa); msto-ife-zttaam catheter system; 18 gauge; distraction, tolerated well, [...] full Cardiovascular Assessment: Pulmonary Assessment: Dental Assessment: [facility] Assessment: Anesthesia Plan: ASA 3 emergent general, with a(n) intravenous induction Pt presented to ED from OSH with one sided weakness. Received plavix at osh. Currently in MRI, for stereotactic brain biopsy GA/ETT Region - Other Informed Consent: Anesthetic plan and risks discussed with patient. Plan discussed with PRODUCTION TEAM MEMBER. [facility]. Assessment: documented in this encounter Plan of [...] g documented in this encounter Care Teams Header Setup Operator Relationship Specialty Start Date End Date Camacho Irwin MD [address] [place] [address] PCP - General 01/27/15 06/30/18 documented as of this encounter
--- OUTSIDE RECORDS SUMMARY | 2024-09-25 08:45 | XMS_ITS | Encounter Summary ---
[place] [address] Care Team Providers Care Event Sales Representative Name Role Phone Camacho Irwin MD Primary Care Provider [phone] [phone] Reason for Visit * Reason Onset Date Comments Other 02/02/2015 Encounter Details Date Type Department Care Team (Late st Contact Info) Description 02/02/2015 [place] [phone] Mando Dixon MD [facility] [place] [address] Other Social History Tobacco Use Types Packs/Day [...] Reina Singh - 02/02/2015 4:49 PM EST [facility] Patient with CVA 69 yo M [...] asked them to give a plavix load ci168he, then continue with 75mg. I asked if patient wanted to be transferred, they said no. Message taken by Dr. Dixon while medical transcription radiology on 01/26/15 documented in this encounter Plan of Treatment Not on file documented as of this encounter Visit Diagnoses Not on filedocumented in this encounter Care Teams Event Sales Representative Relationship Specialty Start Date End Date Camacho Irwin MD [address] [place] [address] PCP - General 01/27/15 06/30/18 documented as of this encounter
--- OUTSIDE RECORDS SUMMARY | 2024-09-25 08:45 | XMS_ITS | Encounter Summary ---
Author Organization [facility] [place] [address] Care Team Providers Care Inseam Trimmer Name Role Phone Camacho Irwin MD Primary Care Provider [phone] [phone] Encounter Details Date Type Department Care Team (Late st Contact Info) Description 02/15/2015 External Results [place] [address] Sharad Lazaro MD [facility] [place] [address] Social History Tobacco Use Types Packs/Day Years [...] Platelet 245(Exter nal Lab) Sedimentation Rate Automated 17(Sustainability Engineer al Lab) C-Reactive Protein High Sensitivity 1.9(Exter nal Lab) Creatinine 0.7(EXTER NAL/ABN) Potassium 4.3(Exter nal Lab) 3.4 - 5.3 02/13/2015 Historical Provider POINT OF CARE RAMONITA T ORDERABLES documented in this encounter Visit Diagnoses Not on filedocumented in this encounter Care Teams Inseam Trimmer Relationship Specialty Start Date End Date Camacho Irwin MD [address] [place] [address] PCP - General 01/27/15 06/30/18 documented as of this encounter
--- OUTSIDE RECORDS SUMMARY | 2024-09-25 08:45 | XMS_ITS | Encounter Summary ---
Author Organization [facility] [place] [address] Care Team Providers Care Bottle House Pumper Name Role Phone Camacho Irwin MD Primary Care Provider [phone] [phone] Encounter Details Date Type Department Care Team (Latest Contact Info) Description 03/14/2015 7:30 AM EDT - 03/14/2015 11:59 PM EDT [place] [id number] CLINIC, Nino Mclean MD [facility] [place] [address] Brain abscess Discharge Disposition: Home Social History [...] Intravenous, ONCE PRN, 1 dose, Starting on Tu03/14/15 at 0827, Until 03/14/15 at 0800, Per Protocol, Routine Given 03/14/2015 8:00 AM EDT 10 mLs documented in this encounter Care Teams Bottle House Pumper Relationship Specialty Start Date End Date Camacho Irwin MD [address] [place] [address] PCP - General 01/27/15 06/30/18 documented as of this encounter
--- OUTSIDE RECORDS SUMMARY | 2024-09-25 08:45 | XMS_ITS | Encounter Summary ---
[place] [address] Care Team Providers Care Correctional Guard Name Role Phone Camacho Irwin MD Primary Care Provider [phone] [phone] Reason for Visit * Reason Comments Follow-up Encounter Details Date Type Department Care Team (Late st Contact Info) Description 03/14/2015 1:00 PM EDT Follow-Up Infectious [place] [address] Nino Villa MD [facility] [place] [address] Brain abscess Discharge Disposition: Home Social History [...] date: 03/10/2015 S: Pt was admitted at [facility] 01/27-01/31 with left sided weakness and discoordination, found to have right brain abscess, aspirated with growth of Strep. Milleri. Source for the abscess was not further identified. Pt was discharged to long-term and then to home. Was readmitted 03/01- to [facility] with acute sigmoid diverticulitis (C. Diff neg) [...] was started as seizure replacement med at [facility]. No fevers. No headaches. Coordination and left [...] Recent CBC, Cr, LFTs from 03/10 at [facility] reviewed. WBC peaked at 33K on 03/10 [...] can continue 3x a day infusions at [facility] since it is close to his home. His PICC line is functioning well. We don't have great alternatives for therapy. He is PCN allergic and recentlyhad severe leukopenia which could have been related to the ceftriaxone. Vanco and Daptomycin don't penetrate TECHNOLOGY SALES REPRESENTATIVE well. If he can't tolerate alisson going [...] abscess documented in this encounter Care Teams Correctional Guard Relationship Specialty Start Date End Date Camacho Irwin MD [address] [place] [address] PCP - General 01/27/15 06/30/18 documented as of this encounter
--- OUTSIDE RECORDS SUMMARY | 2024-09-25 08:45 | XMS_ITS | Encounter Summary ---
Author Organization [facility] [place] [address] Care Team Providers Care Information Technology Assistant Name Role Phone Camacho Irwin MD Primary Care Provider [phone] [phone] Encounter Details Date Type Department Care Team (Late st Contact Info) Description 03/10/2015 Orders Only [place] [address] Iraj Hernandez MD [facility] [place] [address] Social History Tobacco Use Types Packs/Day Years [...] on filedocumented in this encounter Care Teams Information Technology Assistant Relationship Specialty Start Date End Date Camacho Irwin MD [address] [place] [address] PCP - General 01/27/15 06/30/18 documented as of this encounter
--- OUTSIDE RECORDS SUMMARY | 2024-09-25 08:45 | XMS_ITS | Encounter Summary ---
[place] [address] Care Team Providers Care Headlight Adjuster Name Role Phone Camacho Irwin MD Primary Care Provider [phone] [phone] Encounter Details Date Type Department Care Team (Late st Contact Info) Description 02/14/2015 11:30 AM EDT Office [place] [address] Iraj Hernandez MD [facility] [place] [address] Encounter for medication monitoring; superintendent fish hatchery current use of antibiotics; Brain abscess Discharge [...] IV ceftriaxone 2 g BID infused in [facility]. He is anticipated to get a repeat [...] medication monitoring Encounter for therapeutic drug monitoring superintendent fish hatchery current use of antibiotics Encounter for long-term (current) use of antibiotics Brain abscess Intracranial abscess documented in this encounter Care Teams Headlight Adjuster Relationship Specialty Start Date End Date Camacho Irwin MD [address] [place] [address] PCP - General 01/27/15 06/30/18 documented as of this encounter
--- OUTSIDE RECORDS SUMMARY | 2024-09-25 08:45 | XMS_ITS | Encounter Summary ---
[place] [address] Care Team Providers Care Dental Instrument Maker Name Role Phone Camacho Irwin MD Primary Care Provider +1 [phone] Encounter Details Date Type Department Care Team (Late st Contact Info) Description 03/03/2015 Telephone [place] [address] Iraj Hernandez MD [facility] [place] [address] Social History Tobacco Use Types Packs/Day Years [...] on filedocumented in this encounter Care Teams Dental Instrument Maker Relationship Specialty Start Date End Date Camacho Irwin MD [address] [place] [address] PCP - General 01/27/15 06/30/18 documented as of this encounter
--- OUTSIDE RECORDS SUMMARY | 2024-09-25 08:46 | XMS_ITS | Encounter Summary ---
[place] [address] Care Team Providers Care Asp Net C Developer Name Role Phone Camacho Irwin MD Primary Care Provider [phone] [phone] Encounter Details Date Type Department Care Team (Late st Contact Info) Description 01/26/2015 Orders [place] [address] Jose Small MD [facility] [place] [address] Social History Tobacco Use Types Packs/Day Years [...] is a Non-reportable exam Jose Small MD [facility] FILM LIBRARY ORD ERABLES documented in this encounter Visit Diagnoses Not on filedocumented in this encounter Care Teams Asp Net C Developer Relationship Specialty Start Date End Date Camacho Irwin MD [address] [place] [address] PCP - General 01/27/15 06/30/18 documented as of this encounter
--- OUTSIDE RECORDS SUMMARY | 2024-09-25 08:46 | XMS_ITS | Encounter Summary ---
[place] [address] Care Team Providers Care Freight Engineer Name Role Phone Camacho Irwin MD Primary Care Provider +1 [phone] Encounter Details Date Type Department Care Team (Late st Contact Info) Description 01/24/2015 [place] [address] Jose Small MD [facility] [place] [address] Social History Tobacco Use Types Packs/Day Years [...] on filedocumented in this encounter Care Teams Freight Engineer Relationship Specialty Start Date End Date Camacho Irwin MD [address] [place] [address] PCP - General 01/27/15 06/30/18 documented as of this encounter
--- OUTSIDE RECORDS SUMMARY | 2024-09-25 08:46 | XMS_ITS | Encounter Summary ---
[place] [address] Care Team Providers Care Forensic Photographer Name Role Phone Camacho Irwin MD Primary Care Provider [phone] Encounter Details Date Type Department Care Team (Late st Contact Info) Description 01/24/2015 Orders [place] [address] Jose Small MD [facility] [place] [address] Social History Tobacco Use Types Packs/Day Years [...] is a Non-reportable exam Jose Small MD [facility] [place] ER[place]LES documented in this encounter Visit Diagnoses Not on filedocumented in this encounter Care Teams Forensic Photographer Relationship Specialty Start Date End Date Camacho Irwin MD [address] [place] [address] PCP - General 01/27/15 06/30/18 documented as of this encounter
--- OUTSIDE RECORDS SUMMARY | 2024-09-25 08:46 | XMS_ITS | Encounter Summary ---
[place] [address] Care Team Providers Care Steel Wool Machine Operator Name Role Phone Mirna Orosco MD Primary Care Provider [phone] Reason for Visit * Reason Comments Extremity Weakness Encounter Details Date Type Department Care Team (Late st Contact Info) Description 01/27/2015 3:00 PM EST - 01/27/2015 9:55 PM EST Surgery [place] [id number] Jose Santiago MD [facility] [place] [place] [address] @STEREOTACTIC BX,ASP, OR EXC.-INTRACRANIAL LESION, W/SCAN (WRVU [...] schedule, please call the nurse practitioner at [phone] or your Neurosurgeon. [X] Pepcid You are [...] appointment with Neurosurgery Shower/[place]ath: [place] Wound Care: [place] out 2 weeks after surgery - on [...] Nurse (Latisha Parra) Inpatient Nurses Neurosurgical [employer] Lawyer (after 5pm or before 8am) Neurosurgery offices (between 8am-5pm): Dr. Santiago Dr. Ceron (pediatric neurosurgery) Dr. Tello: Pediatric Patients , Adult Patients Dr. Forrester Dr. Delgado Dr. Galvez Dr. Interiano Juaquin Madera, Physician Diesel Power Shovel Operator Sharlene Lorenzana, Nurse Practitioner Juaquin Short, Physician Diesel Power Shovel Operator Kisha Teixeira, Nurse Practitioner CC: MIRNA OROSCO [...] on MRI, being discharged this afternoon to [facility] with transportation provided [...] 01/28. No redness, drainage, or tenderness at Nilo-hole incisions. Mr. Milton has demonstrated appropriate use of Front-wheel walker and is cognizant of his need for assistance when ambulating/ transferring out of bed. His neurological status, vital signs, and blood sugar have been closely monitored throughout his admission and are stable for discharge as per [facility] p olicy and criteria. Discharge summary, medication list, and insurance information all sent with patient in packet, reviewed with patient and to pass information along once arriving at rehab. Pt wheeled to [facility] with all personal belongings and assisted into vehicle safely. * Eber Solis RN - 01/31/2015 11:16 AM EST Patient Name: Mirna Milton Patient Age: 69 y.o. Birthdate: 1945 Admit date: 01/27/2015 Attending Physician: Jose Santiago MD Office of Care Management Clinical Human Resource Consultant (CRC) Jacquie Solis RN, BSN -CRC NeuroSurgery Voice Mail [phone] Pager [phone] DISCHARGE NOTE: ROOM: [facility] ATTENDING: Jose Santiago MD Reason for Hospitalization: Brain abscess, biopsy and IV abx Patient is medically ready for d/c. Patient has been offered a bed at [facility]. Family and patient are aware and agree with the plans. Patient will be transported via private transportation. P: Plan for transfer to SNF Level rehab bed. Will continue to be available should additional needs arise. * Thuy Aguilar - 01/31/2015 11:01 AM EST Office of Care Management/[employer] Patient Name: Mirna Milton : 1945 Patient has been offered a SNF bed at [facility]. family arranged for a 1:00 transport. No MD to MD report necessary. Please call Nursing Report to [phone] ask for jya Wood, cell pourer. Info to accompany patient: Narcotic Prescriptions Copies of Medication Administration Records and IV sheets for past 10 days. Plan: [employer] will be available to the patient and CRC for further assistance. Patient will be discharged to: [place] [address] Roxy Sanchez * Evelio Correa MD - [...] 5/5 triceps, 2/5 deltoids, 2/5 trap, 5/5 human resource consultant LUE:5/5 RLE: 5/5 LLE: 5/5 -Sensation intact [...] suspicious for metastasis so was transferred to [facility] for definitive management.At [facility] neurosurgery eval s/p OR with stereotactic biopsy [...] Gaudencio Mata MD Infectious Disease fellow Pager [phone] ID Attending I interviewed and examined the [...] interventions: 25 minutes functional there ex Pager: [phone] KAITLYN Barron 01/30/2015 Occupational Therapy Rehabilitation Department [...] with his . Pt is retired from [employer]. is available, has a flexible [...] interventions: 25 minutes-functional mobility, neuro re-ed Pager: [phone] Yenifer Thakur PT Physical Therapy Rehabilitation Department [...] Office of Care Management (OCM) / Clinical Human Resource Consultant (CRC)/ Initial Assessment Discussed patient with Provider [...] file. HEALTH /PRESCRIPTION COVERAGE: Medicare AB/ [place] [facility] REFERRAL: Available if needed. PRIMARY CARE PHYSICIAN: MIRNA OROSCO MD [facility] [address] POTENTIAL DISCHARGE NEEDS: 69 y/o M s/p biopsy of brain abscess and on IV abx. PT evaluation shows patient would benefit for a short stay at rehab. Met with patient at bedside and he would like to make a referral with [facility] & [address] [address] . Will ask RS to [...] 5/5 triceps, 2/5 deltoids, 2/5 trap, 5/5 human resource consultant LUE:5/5 RLE: 5/5 LLE: 5/5 -Sensation intact [...] PM EST Clinical Pharmacist Note-Vanc Mirna Milton [id number] 1945 Mirna Milton is a 69 y.o. [...] have. Alternately, during off-hours you may call [phone] to contact a pharmacist. Tatiana Shankar PHARMD Pager [phone] * Burt Keller PT - 01/29/2015 5:28 PM EST Physical Therapy Treatment Note Visit #: 2 Patient Dx: Mirna Milton is a 69 y.o. male patient of Jose Degroot MD, admitted on 01/27/2015 from OSH for evaluation of brain mass. Pt s/p stereotactic biopsy. Social History: Patient lives with his . Pt is retired from [employer]. is available, has a flexible [...] and pt aware to call for staff electronic warfare officer assistance with all mobility. Staff Communication: Patient [...] Total timed interventions: 35 minutes-functional mobility. Pager: [phone] Burt Keller, LUIS MIGUEL Physical Therapy Rehabilitation [...] interventions: 38 minutes functional there ex Pager: [phone] KAITLYN Barron 01/29/2015 Occupational Therapy Rehabilitation Department * Elizabeth Orellana - 01/29/2015 8:09 AM EST NEUROSURGERY PROGRESS NOTE Mirna Haines Milton [id number] 1945 ID: 69 y.o. gentleman with brain abscess, POD 2 from stereotactic biopsy INTERVAL Hx: - No acute events - Switched to vanc/meropenem MEDICATIONS: Scheduled Meds: ??? Vancomycin Level - [facility] Order Reminder NOT APPLICABLE Once ??? MEROpenem [...] 5/5 triceps, 2/5 deltoids, 2/5 trap, 5/5 human resource consultant LUE:5/5 RLE: 5/5 LLE: 5/5 No pronator [...] AM EST NEUROSURGERY PROGRESS NOTE Mirna Milton [id number] 1945 ID: 69 y.o. gentleman with brain [...] 5/5 triceps, 2/5 deltoids, 2/5 trap, 5/5 human resource consultant LUE:5/5 RLE: 5/5 LLE: 5/5 No pronator [...] have been asked by Dr. Damian of [facility] to see Mirna Milton, a 69 y/o right-handed male, for evaluation of a brain mass. The patient developed left lower extremity incoordination three days prior to admission. He was seen at [facility] where a head CT was performed and [...] including IVDU. He is retried from the [facility] [employer] [facility]. EXAM: AF. AVSS GEN:NAD NEURO:AA+Ox3 [...] have been asked by Dr. Damian of [facility] to see Mirna Milton, a 69 y/o right- handed male, for evaluation of a brain mass. The patient developed left lower extremity incoordination three days prior to admission. He was seen at [facility] where a head CT was performed and [...] including IVDU. He is retried from the [facility]. Hospital Course: Patient was taken [...] of abnormal enhancement, or restricted diffusion. MRA [place]: Intracranial internal carotid arteries are normal in caliber bilaterally. MCA, HARRY, and visualized branches are normal. There is relatively poor flow related enhancement of a portion of the intradural vertebral artery. The left intradural vertebral artery is normal. Basilar artery is normal in caliber. Posterior cerebral arteries are unremarkable. MRA neck: 2-D [id number] images demonstrate normal antegrade flow in the [...] Data: None Discharge Conditions/Prognosis: Stable Discharge to: [facility] [place] [facility] [place] [place] Discharge Medications: Your Medications New Medications [...] schedule, please call the nurse practitioner at [phone] or your Neurosurgeon. [X] Pepcid You are [...] Nurse (Latisha Parra) Inpatient Nurses Neurosurgical [employer] Lawyer (after 5pm or before 8am) Neurosurgery offices (between 8am-5pm): Dr. Santiago Dr. Ceron (pediatric neurosurgery) Dr. Tello: Pediatric Patients , Adult Patients Dr. Forrester Dr. Delgado Dr. Galvez Dr. Interiano Juaquin Madera, Physician Diesel Power Shovel Operator Sharlene Lorenzana Nurse Practitioner Juaquin Short, Physician Diesel Power Shovel Operator Kisha Teixeira Nurse Practitioner CC: MIRNA OROSCO MD Future Appointments and Orders Future Appointments Provider Department Dept Phone 01/31/2015 3:45 PM Echo Inpatient Add-On Non-Invasive Cardiology Lab [phone] 02/14/2015 11:30 AM Iraj Hernandez MD Infectious Disease [phone] 03/09/2015 10:30 AM Gaudencio Mata MD Infectious Disease [phone] Future Orders Complete By Expires OPAT: Order / Recommendation for Post Discharge IV Antibiotic Management [AAK661 CPT(R)] As directed Process Instructions: If no progress note charted, please enter Clinical details in comments. Scheduling Instructions: Comments: Please Fax all results to: OPAT Program Infectious Disease Section [facility], [place] [address] FAX: Line care instructions per [facility] OPAT Program protocol. After hours, please contact the Infectious Disease Physician salesperson fashion accessories at . If this order was signed greater than 72 hours prior to [facility] discharge, please call to confirm the accuracy [...] needs. PLAN MOVING FORWARD: Expected d/c to [facility] when medically appropriate. TTE in AM. Continue toencourage mobilization/ strengthening. Monitor Hayden-hole incisions. INDIVIDUALIZED FALL PREVENTION: Assistance: 2-assist out [...] Human Response Clinical Practice Guideline (CPG) 01/30/15 1534 Health Knowledge, Opportunity for Enhanced Physiological Related Risk Factors (Health Knowledge, Opportunity for Enhanced) new development in disease process Problem: Craniotomy/Craniectomy/Cranioplasty (Adult) Goal: Signs and symptoms of listed potential problems will be absent or manageable (reference (Craniotomy/Craniectomy/Cranioplasty (Adult)) CPG) 01/30/15 2804 Craniotomy/Craniectomy/Cranioplasty Problems Assessed (Craniotomy/Craniectomy/Cranioplasty) all Problems Present (Craniotomy/Craniectomy/Cranioplasty) none * Op Note - Ball, Jose A, MD - 01/30/2015 6:30 AM EST [facility] Operative Note Patient Name: Mirna Mliton : [id number] MR#: [id number] Case Date: 01/27/2015 Surgeon: Surgeon(s) and Role: * Jose Santiago MD - Primary * Jeffery Kahn MD - Resident-Surgeon Dinh * Dustin Parker MD - Resident-Surgeon Chief Preoperative diagnosis: ABSCESS Postoperative diagnosis: ABSCESS Procedure(s): @STEREOTACTIC BX,ASP, OR EXC.-INTRACRANIAL LESION, W/SCAN STEREOTACTIC COMPUTER-ASSTD NAVIGATIONAL CRANIAL INTRADURAL Indications: The patient is a 69-year-old male transferred to [facility] for evaluation of a right frontal brain [...] obtained as well for neuronavigation with the Tellwiki. After coregistration was performed with the Tellwiki navigation system, the biopsy plan was then [...] then reflected away from the skull. A aircraft instrument tester was then used to create a nilo hole. The SteYOUnite stereotactic biopsy kit was then opened and [...] Health Knowledge, Opportunity for Enhanced (Adult, NICU, [place], Obstetrics, Pediatric) Goal: Identify Signs and Symptoms [...] Health Knowledge, Opportunity for Enhanced (Adult, NICU, [place], Obstetrics, Pediatric) Goal: Identify Signs and Symptoms [...] with his . Pt is retired from [employer]. is available, has a flexible schedule (sells [...] interventions: 15 minutes functional there ex Pager: [phone] Diane Barcenas OT 01/28/2015 Occupational Therapy Rehabilitation Department * Consult Note - Iraj Hernandez MD - 01/28/2015 3:35 PM EST Patient Name: Mirna Milton Patient Age: 69 y.o. Birthdate: 1945 Admit date: 01/27/2015 Attending Physician: Jose Santiago MD INFECTIOUS DISEASE FELLOW INPATIENT CONSULT NOTE Reason for Consult: We are seeing Mirna Milton at the request of Dr Satniago for the evaluation of Brain abscess Admission date: 01/27/2015 HPI: Mirna Milton is a 69 y.o. male with pmhx of HTN,HLD,CAD p/w left sided weakness and incoordination to OSH s/p CT head- suggestive of ischemic infract.patient was given plavix and aspirin.Weakness worsened next day which prompted MRI of brain revealing right frontal lesion ?metastasis so patient was transferred to [facility] for further care. At [facility] patient was evaluated by neurosurgery and review [...] recent travel, no drugs,No pets Lived in [place] all his life,no travel in the past [...] suspicious for metastasis so was transferred to [facility] for definitive management.At [facility] neurosurgery eval s/p OR with stereotactic biopsy [...] will continue to follow the patient,please page [phone] with questions Above recommendations were communicated with the primary team x Recommendations discussed with primary team. Consult service will continue to follow patient. Recommendations discussed with primary team. ID will sign off. Please page [phone] if further consultation required. Case discussed with ID attending Dr.Zuckerman Gaudencio Mata MD, Fellow, Infectious Disease Pager [phone] Attending Addendum: I have seen and examined [...] Health Knowledge, Opportunity for Enhanced (Adult, NICU, [place], Obstetrics, Pediatric) Goal: Identify Signs and Symptoms [...] . Pt is retired from [employer]. is available, has a flexible schedule (sells [...] and push walker forward; his elbow and human resource consultant are strong, but shoulder is weak. He [...] minutes Total timed interventions: 10 minutes Pager: [phone] Juaquin Solano, PT 01/28/2015 Physical Therapy Rehabilitation Department * Plan of Care - Stiven Poe LPN - 01/28/2015 10:09 AM EST Problem: Health Knowledge, Opportunity for Enhanced (Adult, NICU, [place], Obstetrics, Pediatric) Goal: Knowledgeable about Health Subject/Topic Patient will demonstrate the desired outcomes. Outcome: Outcome (s) achieved Date Met: 01/28/15 Peripherally Inserted Central Catheter (PICC) Teaching Sheet Peripherally inserted central catheters (onjw-uf-vyjv) (PICC) are used when you need IV [...] catheter? PICC lines are used for terminal makeup operator treatments. PICC lines may be used [...] can be set up via the nurse King Maker to help you. What are possible complications [...] Efficacy, Safety, Use, and Administration of [employer], [employer] 2005 * Plan of Care - [...] Operative Note Patient Name: Mirna Milton : [id number] MR#: [id number] Case Date: 01/27/2015 Surgeon: Surgeon(s) and Role: [...] Place PICC Line: Contact Vascular Access Page [phone] Procedures Routine One Time for 1 Occurrences [...] ABSCESS MRI BRAIN WITH CONTRAST STAT 01/27/20 3:56 PM EST URINALYSIS WITH REFLEX CULTURE [...] 2:40 PM EST DIFFERENTIAL, AUTOMATED STAT 01/27/20 2:40 PM EST ABO/RH TYPING STAT 01/27/2015 [...] Glucose, POC 106 60 - 199 mg/dL [facility] Comment: Supplemental ranges: <140 mg/dL before meals <180 mg/dL all other times of the day Blood specimen (specimen) 01/31/2015 11:40 AM EST 01/31/2015 11:40 AM EST Jose Santiago MD POINT OF CARE TEST O RDERABLES [facility] * Echocardiogram Transthoracic(Leb) (01/31/2015 11:36 AM EST) EF 70 HEARTLAB SYSTEM Anatomical Region Laterality Modality Other 01/31/2015 Narrative 01/31/2015 12:30 PM EST Amended Report Procedure: ? Transthoracic Echocardiogram Patient: ? YOAN Haines ? (Age): 1945(69) Med Rec#: ?[id number] ? Sex: ?M ? Site Loc: ?[facility] ? Ht / Wt: ??188(cm)/98(kg) Pt. Loc: ? Adult Floor ?BSA: ?2.26 Study Date: ?01/31/2015 ? Pt. Type: Inpatient Tape: ?Epiq1 ? Referring: Jose Santiago Referring: ORLANDO DAMIAN Community Relations Officer: Olga Lidia Cevallos Diagnosis: ??Bacteremia (790.7) CPT Code(s): ??Echo Full (87955), ??Spectral Doppler (72278), ??Color Doppler (43116), Indication(s):Rhythm: Sinus HR ?BP ?148/74 ?? SUMMARY: [...] ? Mid-Inferior ?Normal ? Mid-Inferoseptal ?Normal ? [place]-Septal ? Normal ? [place]-Anterior ? Normal ? [place]-Lateral ?Normal ? [place]-Inferior ? Normal ? [place]-Tip ?Normal ? Chambers ?Value ?Units (Range) ? [...] 01/31/2015 12:29:59 Images reviewed and interpretation verified [facility] Cardiac Ultrasound Laboratory Procedure Note Riley Huitron MD - 01/31/2015 Amended Report Procedure: Transthoracic Echocardiogram Patient: YOAN AVELAR(Age): 1945(69) Med Rec#: [id number] Sex: M Site Loc: [facility] Ht / Wt: 188(cm)/98(kg) Pt. Loc: Adult Floor BSA: 2.26 Study Date: 01/31/2015 Pt. Type: Inpatient Tape: Epiq1 Referring: Jose Santiago Referring: ORLANDO DAMIAN Community Relations Officer: Olga Lidia Cevallos Diagnosis: Bacteremia (790.7) CPT Code(s): Echo Full (54089), Spectral Doppler (74031), Color Doppler (27424), Indication(s):Rhythm: Sinus HR BP 148/74 SUMMARY: 1. [...] Normal Mid-Posterolateral Normal Mid-Inferior Normal Mid-Inferoseptal Normal [place]-Septal Normal [place]-Anterior Normal [place]-Lateral Normal [place]-Inferior Normal [place]-Tip Normal Chambers Value Units (Range) LV EF [...] 01/31/2015 12:29:59 Images reviewed and interpretation verified [facility] Cardiac Ultrasound Laboratory Jose Santiago MD ECHO ORDERABLES * POCT Glucose (01/31/2015 7:04 AM EST) Pathologist [facility] Glucose, POC 98 60 - 199 mg/dL [facility] Comment: Supplemental ranges: <140 mg/dL before meals <180 mg/dL all other times of the day Blood specimen (specimen) 01/31/2015 7:04 AM EST 01/31/2015 7:04 AM EST Jose Santiago MD POINT OF CARE TEST O RDERABLES [facility] * (ABNORMAL) Differential, Automated (01/31/2015 6:02 AM EST) [facility] Neutrophil % 74.7 % CERNER MILLENNIUM Neutrophil [...] Metabolic Panel (non-fasting) (01/31/2015 6:02 AM EST) [facility] Glucose 123 60 - 199 mg/dL [facility] Comment:Diabetes: >=200 mg/d L plus symptoms Blood Urea Nitrogen 24(H) 10 - 20 mg/dL [facility] MILLENNIUM Creatinine 0.76(L) 0.80 - 1.50 mg/dL [facility] Comment: Please note that the pediatric reference intervals supplied above were not validated at [facility]. Results from pediatric patients should be interpreted [...] the following links into your internet browser. [email or web address] Blood specimen (specimen) 01/31/2015 6:02 AM EST 01/31/2015 6:06 AM EST Narrative Resulting Agency Comment Spec In Lab Jose Santiago MD CHEMISTRY ORDERABLES Performing Organization Address [facility] Phone Number [facility] * POCT Glucose (01/30/2015 4:23 PM EST) Glucose, POC 118 60 - 199 mg/dL [facility] Comment: Supplemental ranges: <140 mg/dL before meals <180 mg/dL all other times of the day Blood specimen (specimen) 01/30/2015 4:23 PM EST 01/30/2015 4:23 PM EST Jose Santiago MD POINT OF CARE TEST O RDERABLES Performing Organization Address [facility] Phone Number [facility] * POCT Glucose (01/30/2015 11:53 AM EST) Glucose, POC 101 60 - 199 mg/dL [facility] Comment: Supplemental ranges: <140 mg/dL before meals <180 mg/dL all other times of the day Blood specimen (specimen) 01/30/2015 11:53 AM EST 01/30/2015 11:53 AM EST Jose Santiago MD POINT OF CARE TEST O RDERABLES Performing Organization Address [facility] Phone Number [facility] * Scan, Peripheral Blood (01/30/2015 10:08 AM [...] MD HEMATOLOGY ORDERABLE S Performing Organization Address [facility] de Phone Number [facility]ERTONI SPENCERENNIUM * (ABNORMAL) Hemogram (01/30/2015 10:08 AM EST) [facility] White Blood Cell 9.7 4.0 - 10.0 [...] MD HEMATOLOGY ORDERABLE S Performing Organization Address [facility] de Phone Number [facility]ERTONI SPENCERENNIUM * (ABNORMAL) Basic Metabolic Panel (non-fasting) (01/30/2015 10:00 AM EST) [facility] Glucose 96 60 - 199 mg/dL [facility] Comment:Diabetes: >=200 mg/d L plus symptoms Blood Urea Nitrogen 24(H) 10 - 20 mg/dL [facility] MILLENNIUM Creatinine 0.72(L) 0.80 - 1.50 mg/dL [facility] M[facility]ENNI[facility] Comment: Please note that the pediatric reference intervals supplied above were not validated at [facility]. Results from pediatric patients should be interpreted [...] the following links into your internet browser. [email or web address] Blood specimen (specimen) 01/30/2015 10:00 AM EST 01/30/2015 10:16 AM EST Narrative Resulting Agency Comment Spec In Lab Jose Santiago MD CHEMISTRY ORDERABLES Performing Organization Address City/State/[facility] Co de Phone Number CERTONI ERVINIUM * POCT Glucose (01/30/2015 8:09 AM EST) Glucose, POC 175 60 - 199 mg/dL [facility] Comment: Supplemental ranges: <140 mg/dL before meals <180 mg/dL all other times of the day Blood specimen (specimen) 01/30/2015 8:09 AM EST 01/30/2015 8:09 AM EST Jose Santiago MD POINT OF CARE TEST O RDERABLES Performing Organization Address City/[facility] de Phone Number [facility] * (ABNORMAL) POCT Glucose (01/30/2015 8:07 AM EST) Glucose, POC 577(Critic al) 60 - 199 mg/dL [facility] Comment: Supplemental ranges: <140 mg/dL before meals <180 mg/dL all other times of the day Blood specimen (specimen) 01/30/2015 8:07 AM EST 01/30/2015 8:07 AM EST Jose Santiago MD POINT OF CARE TEST O RDERABLES Performing Organization Address [facility] de Phone Number [facility] * POCT Glucose (01/29/2015 8:37 PM EST) Glucose, POC 121 60 - 199 mg/dL [facility] Comment: Supplemental ranges: <140 mg/dL before meals <180 mg/dL all other times of the day Blood specimen (specimen) 01/29/2015 8:37 PM EST 01/29/2015 8:37 PM EST Jose Santiago MD POINT OF CARE TEST O RDERABLES Performing Organization Address [facility] Phone Number [facility] * (ABNORMAL) Vancomycin, trough (01/29/2015 4:15 PM EST) Vancomycin, Trough 30.5(Crit ical) mg/L [facility] Comment: Called by: mariaelena, Read back [...] Santiago MD CHEMISTRY ORDERABLES Performing Organization Address [facility] Phone Number [facility] * POCT Glucose (01/29/2015 3:59 PM EST) Glucose, POC 117 60 - 199 mg/dL [facility] [facility] Comment: Supplemental ranges: <140 mg/dL before meals <180 mg/dL all other times of the day Blood specimen (specimen) 01/29/2015 3:59 PM EST 01/29/2015 3:59 PM EST Jose Santiago MD POINT OF CARE TEST O RDERABLES Performing Organization Address [facility] Phone Number [facility] * POCT Glucose (01/29/2015 11:33 AM EST) Glucose, POC 117 60 - 199 mg/dL [facility] Comment: Supplemental ranges: <140 mg/dL before meals <180 mg/dL all other times of the day Blood specimen (specimen) 01/29/2015 11:33 AM EST 01/29/2015 11:33 AM EST Jose Santiago MD POINT OF CARE TEST O RDERABLES Performing Organization Address [facility] Phone Number [facility] * POCT Glucose (01/29/2015 7:16 AM EST) Glucose, POC 131 60 - 199 mg/dL [facility] Comment: Supplemental ranges: <140 mg/dL before meals <180 mg/dL all other times of the day Blood specimen (specimen) 01/29/2015 7:16 AM EST 01/29/2015 7:16 AM EST Jose Santiago MD POINT OF CARE TEST O RDERABLES Performing Organization Address [facility] Phone Number [facility] * (ABNORMAL) Differential, Automated (01/29/2015 5:34 AM [...] Panel (non-fasting) (01/29/2015 5:34 AM EST) Pathologist [facility] Glucose 126 60 - 199 mg/dL [facility] Comment:Diabetes: >=200 mg/d L plus symptoms Blood Urea Nitrogen 21(H) 10 - 20 mg/dL [facility] MILLENNIUM Creatinine 0.77(L) 0.80 - 1.50 mg/dL [facility] MILLENNIUM Comment: Please note that the pediatric reference intervals supplied above were not validated at [facility]. Results from pediatric patients should be interpreted [...] Anion Gap 12 5 - 15 mmol/L [facility] Calcium 8.9 8.5 - 10.5 mg/dL [facility] MILLENNIUM Est Glomerular Filtration Rate >60 >=60 [facility] Comment: This estimated GFR (eGFR) value was [...] the following links into your internet browser. [email or web address] Blood specimen (specimen) 01/29/2015 5:34 AM EST 01/29/2015 5:57 AM EST Narrative Resulting Agency Comment Spec In Lab Jose Santiago MD CHEMISTRY ORDERABLES Performing Organization Address [facility] Co de Phone Number [facility] * POCT Glucose (01/28/2015 4:41 PM EST) Glucose, POC 118 60 - 199 mg/dL [facility] Comment: Supplemental ranges: <140 mg/dL before meals <180 mg/dL all other times of the day Blood specimen (specimen) 01/28/2015 4:41 PM EST 01/28/2015 4:41 PM EST Jose Santiago MD POINT OF CARE TEST O RDERABLES Performing Organization Address [facility] Co de Phone Number [facility] * POCT Glucose (01/28/2015 12:29 PM EST) Glucose, POC 118 60 - 199 mg/dL [facility] Comment: Supplemental ranges: <140 mg/dL before meals <180 mg/dL all other times of the day Blood specimen (specimen) 01/28/2015 12:29 PM EST 01/28/2015 12:29 PM EST Jose Santiago MD POINT OF CARE TEST O RDERABLES Performing Organization Address City/[facility]/ZIP Co de Phone Number [facility] * XR VAS venous access (PICC placement) (01/28/2015 11:53 AM EST) Anatomical Region Laterality Modality N/A Radiographic Meagan ging 01/28/2015 11:5 3 AM EST Narrative 01/28/2015 12:00 PM EST EXAMINATION: PLACEMENT PICC LINE (IV TEAM) Over 5 yrs/XCARM CLINICAL HISTORY: brain mass access/abx ??4 pashto 1 lumen ??no restrictions TECHNIQUE: C-arm placement of PICC. Limited view of the line tip only. FINDINGS: Intraprocedural frontal radiograph of the mediastinum demonstrates a Right PICC, with the catheter tip projected at the mid SVC. Procedure Note Yaima Monet MD - 01/28/2015 EXAMINATION: PLACEMENT PICC LINE (IV TEAM) Over 5 yrs/XCARM CLINICAL HISTORY: brain mass access/abx 4 pashto 1 lumen norestrictions TECHNIQUE: C-arm placement of PICC. Limited view of the line tip only. FINDINGS: Intraprocedural frontal radiograph of the mediastinumdemonstrates a Right PICC, with the catheter tip projected at the mid SVC. Jose Santiago MD IMG FLUORO ORDERABLE S * POCT Glucose (01/28/2015 8:00 AM EST) Glucose, POC 124 60 - 199 mg/dL [facility] Comment: Supplemental ranges: <140 mg/dL before meals <180 mg/dL all other times of the day Blood specimen (specimen) 01/28/2015 8:00 AM EST 01/28/2015 8:00 AM EST Jose Santiago MD POINT OF CARE TEST O IVY Performing Organization Address [facility]/ZIP Co de Phone Number [facility] * (ABNORMAL) Differential, Automated (01/28/2015 2:46 AM [...] Metabolic Panel (non-fasting) (01/28/2015 2:46 AM EST) [facility] Glucose 131 60 - 199 mg/dL [facility] MILLENNIUM Comment:Diabetes: >=200 mg/d L plus symptoms Blood Urea Nitrogen 21(H) 10 - 20 mg/dL [facility] MILLENNIUM Creatinine 0.86 0.80 - 1.50 mg/dL [facility] MILLENNI[facility] Comment: Please note that the pediatric reference intervals supplied above were not validated at [facility]. Results from pediatric patients should be interpreted [...] rechecked-TJ Est Glomerular Filtration Rate >60 >=60 [facility] Comment: This estimated GFR (eGFR) value was [...] the following links into your internet browser. [email or web address] Blood specimen (specimen) 01/28/2015 2:46 AM EST 01/28/2015 2:55 AM EST Narrative Resulting Agency Comment Spec In Lab Jose Santiago MD CHEMISTRY ORDERABLES Performing Organization Address [facility] de Phone Number [facility] * POCT Glucose (01/27/2015 8:44 PM EST) Glucose, POC 154 60 - 199 mg/dL [facility] Comment: Supplemental ranges: <140 mg/dL before meals <180 mg/dL all other times of the day Blood specimen (specimen) 01/27/2015 8:44 PM EST 01/27/2015 8:44 PM EST Jose Santiago MD POINT OF CARE TEST O RDERABLES Performing Organization Address [facility] Phone Number [facility] * Pathology Addendum Report (01/27/2015 5:35 PM EST) Addendum Report ? [facility] ? Provider: ?? JOSE SANTIAGO ? Pt. Name: ?? MIRNA MILTON ? Acc #: ?[id number] ?Pt. ? Col Date: ?? 01/27/2015 ? [...] ? from the tissue. ? 02/02/15 ? WFH ? 02/02/15 Verified by: ? Oswaldo HOOD, [...] MD PATHOLOGY/CYTOLOGY Daisy HAYNES Performing Organization Address City/State/[facility] Co de Phone Number [facility] * Surgical Pathology Report (01/27/2015 5:35 PM EST) Final Diagnosis [id number] ? Location: [facility]; [place]; A The signing pathologist has (i) [...] Streptococcus milleri cultured from the tissue. 02/02/15 [facility] 02/02/15 Verified by: ? Oswaldo HOOD, Jimbo [...] Quantity/Size: Single, 0.5 cm. Tissue Description: Friable, sacnlon-white tissue. Sections/Processi ng: (T1) C - Labeled/Fixative: [...] many bacterial colonies and fragments of inflamed/reactive DAIRY AND FOOD LABORATORY ASSISTANT parenchyma (B) Small fragments of brain parenchyma with reactive and inflammatory changes. (C) Small fragments of brain parenchyma with reactive and inflammatory changes. (D) Small fragments of brain parenchyma with reactive and inflammatory changes. (E) Pus containing many bacterial colonies and fragments of inflamed/reactive DAIRY AND FOOD LABORATORY ASSISTANT parenchyma 01/31/15 [facility] 01/31/15 Verified by: ? Oswaldo HOOD, Jimbo Lyons ?Pathologist ?(Electronic Signature) The attending pathologist whose signature appears on this report has reviewed all diagnostic slides and has edited the gross and/or microscopic portion of the report in rendering the final pathologic diagnosis. Comment This pathological process is infectious, not neoplastic. ??It is a bacterial abscess from [facility] Streptococcus milleri has been cultured. ??Special stains have been ordered to determine if other organisms may also be present; those results will be reported as an addendum, when available. 02/02/2015 12:57 PM EST [facility] BRAIN STRUCTURE / Unknown 01/27/2015 [...] MD PATHOLOGY/CYTOLOGY O IVY Performing Organization Address [facility] Co de Phone Number [facility] [place] [phone] * Specimen to Pathology (surgical or derm) (01/27/2015 5:35 PM EST) AP Specimen 01/27/2015 5:35 PM EST 01/27/2015 5:35 PM EST [facility]ative [facility] - 01/27/2015 5:35 PM EST Specimen requisition ordered. ??Separate Pathology report to follow Jose Sanitago MD PATHOLOGY/CYTOLOGY O IVY Performing Organization Address [facility] de Phone Number [facility] * Specimen to Pathology (surgical or derm) (01/27/2015 5:35 PM EST) AP Specimen 01/27/2015 5:35 PM EST 01/27/2015 5:35 PM EST Narrative [facility] - 01/27/2015 5:35 PM EST Specimen requisition ordered. ??Separate Pathology report to follow Jose Santiago MD PATHOLOGY/CYTOLOGY O IVY Performing Organization Address [facility] Co de Phone Number [facility] * Specimen to Pathology (surgical or derm) (01/27/2015 5:35 PM EST) AP Specimen 01/27/2015 5:35 PM EST 01/27/2015 5:35 PM EST Narrative [facility] - 01/27/2015 5:35 PM EST Specimen requisition ordered. ??Separate Pathology report to follow Jose Santiago MD PATHOLOGY/CYTOLOGY O IVY Performing Organization Address [facility] Co de Phone Number [facility] * Specimen to Pathology (surgical or derm) (01/27/2015 5:35 PM EST) AP Specimen 01/27/2015 5:35 PM EST 01/27/2015 5:35 PM EST Narrative [facility] 01/27/2015 5:35 PM EST Specimen requisition ordered. ??Separate Pathology report to follow Jose Santiago MD PATHOLOGY/CYTOLOGY O IVY Performing Organization Address [facility] Co de Phone Number [facility] * Specimen to Pathology (surgical or derm) (01/27/2015 5:35 PM EST) AP Specimen 01/27/2015 5:35 PM EST 01/27/2015 5:35 PM EST Narrative [facility] - 01/27/2015 5:35 PM EST Specimen requisition ordered. ??Separate Pathology report to follow Jose Santiago MD PATHOLOGY/CYTOLOGY O IVY Performing Organization Address [facility] de Phone Number [facility] * Anaerobic Culture (01/27/2015 5:25 PM EST) Anaerobic Culture ? Patient Name: MIRNA MILTON ?Ordered By: JOSE SANTIAGO ? MR#: [id number] ?LOC: ??5WST ? /Sex: ??1945 (69 years), ? Male ? PROCEDURE: Anaerobic Culture ?SOURCE: Other ? COLLECTED: 01/27/2015 17:25 ?FREE TEXT SOURCE: ? abscess vs tumor ? STARTED: 01/27/2015 17:38 ? FINAL REPORT ? Final Report ? Verified:2014 13:14 ? No anaerobic organisms isolated ? PRELIMINARY REPORT ? Preliminary Report ? Verified:2014 12:58 ? No anaerobic organisms isolated to date ? [facility] Specimen of unknown material (specimen) 01/27/2015 5:25 PM EST 01/27/2015 5:38 PM EST Comment:? ABSCESS VS TUMOR Narrative Resulting Agency Comment Spec In Lab Jose Santiago MD MICROBIOLOGY - GENER AL ORDERABLES [facility] * Tissue culture (01/27/2015 5:25 PM EST) Tissue Culture ? Patient Name: MIRNA MILTON ?Ordered By: JOSE SANTIAGO ? MR#: [id number] ?LOC: ??5WST ? /Sex: ??1945 (69 years), [...] ble ? Patient: MIRNA MILTON ? MR#: [id number] ? FOOTNOTES ? (1) ? Penicillin susceptible [...] - GENER AL ORDERABLES [facility] * Anaerobic Culture (01/27/2015 5:18 PM EST) Anaerobic Culture ? Patient Name: MIRNA MILTON ?Ordered By: JOSE SANTIAGO ? MR#: [id number] ?LOC: ??5WST ? /Sex: ??1945 (69 years), [...] MILTON ?Ordered By: JOSE SANTIAGO ? MR#: [id number] ?LOC: ??5WST ? /Sex: ??1945 (69 years), [...] MD MICROBIOLOGY - GENER AL ORDERABLES [facility] * Anaerobic Culture (01/27/2015 5:18 PM EST) Anaerobic Culture ? Patient Name: MIRNA MILTON ?Ordered By: JOSE SANTIAGO ? MR#: [id number] ?LOC: ??5WST ? /Sex: ??1945 (69 years), [...] MILTON ?Ordered By: JOSE SANTIAGO ? MR#: [id number] ?LOC: ??5WST ? /Sex: ??1945 (69 years), [...] Urine Dipstick Hazy(A) Clear CERNER MILLENNIUM Specific [place] Urine Automated 1.026 1.002 - 1.030 CERNER [...] MILTON ?Ordered By: JOSE SANTIAGO ? MR#: [id number] ?LOC: ??5WST ? /Sex: ?? 5 (69 years), ? Male ? PROCEDURE: Urine Culture ?SOURCE: U CC ? COLLECTED: 01/27/2015 15:22 ? STARTED: 01/27/2015 16:34 ? FINAL REPORT ? Final Report ? Verified: 15:25 ? No growth (Less than 1,000 cfu/ml). ? ____ [facility] Urine specimen obtained by clean catch procedure (specimen) 01/27/2015 3:22 PM EST 01/27/2015 4:34 PM EST Narrative Resulting Agency Comment Spec In Lab Jose Santiago MD MICROBIOLOGY - GENER AL ORDERABLES Performing Organization Address [facility] Phone Number [facility] * Prepare Platelets, Apheresis (01/27/2015 2:50 PM EST) Dispensed? Yes [facility] Blood specimen (specimen) 01/27/2015 2:50 PM EST 01/27/2015 2:50 PM EST Jose Santiago MD BLOOD BANK PRODUCT O RDERABLES Performing Organization Address [facility] de Phone Number [facility] * Blood culture (01/27/2015 2:45 PM EST) Pathologist [facility] Blood Culture ? Patient Name: MIRNA MLITON ?Ordered By: JOSE SANTIAGO ? MR#: [id number] ?LOC: ??5WST ? /Sex: ??1945 (69 years), [...] Santiago MD MICROBIOLOGY - BLOOD ORDERABLES [facility] * Scanlon Hold (01/27/2015 2:40 PM EST) Scanlon Hold Sample in lab. [facility] Blood specimen (specimen) Venous Draw / Unknown 01/27/2015 2:40 PM EST 01/27/2015 2:55 PM EST Jose Santiago MD CHEMISTRY ORDERABLES [facility]ER MILLENNIUM * (ABNORMAL) Differential, Automated (01/27/2015 2:40 PM [...] Cell 15.2(H) 4.0 - 10.0 x10(3)/mc L [facility] MILLENNIUM Red Blood Cell 4.76 4.63 - [...] MD HEMATOLOGY ORDERABLE S Performing Organization Address City/[facility] Co de Phone Number [facility] ERVINIUM * Antibody screen (01/27/2015 2:40 PM EST) Ab Screen Interp Negative [facility] ERVINIUM Expires at [id number] on: [id number] [facility] SPENCER[facility] Blood specimen (specimen) 01/27/2015 2:40 PM EST 01/27/2015 2:51 PM EST Narrative Resulting Agency Comment Spec In Lab Jose Santiago MD BLOOD BANK LAB ORDER PARK Performing Organization Address City/[facility] Co de Phone Number [facility] ERVINI[facility] * ABO/Rh Typing (01/27/2015 2:40 PM EST) ABORH Type A Neg [facility] Blood specimen (specimen) 01/27/2015 2:40 PM EST 01/27/2015 2:51 PM EST Narrative Resulting Agency Comment Spec In Lab Jose Santiago MD BLOOD BANK LAB ORDER PARK Performing Organization Address [facility] Number [facility] * Sedimentation rate (01/27/2015 2:40 PM EST) Sedimentation Rate Automated 11 0 - 15 mm/hr [facility] Blood specimen (specimen) 01/27/2015 2:40 PM EST 01/27/2015 2:54 PM EST Narrative Resulting Agency Comment Spec In Lab Jose Santiago MD HEMATOLOGY ORDERABLE S Performing Organization Address [facility] Number [facility] * High Sensitivity CRP (01/27/2015 2:40 PM EST) C-Reactive Protein High Sensitivity 7.3 mg/L [facility] Comment: Interpretations: 1) For accurate cardiac [...] Santiago MD CHEMISTRY ORDERABLES [facility] * Blood culture (01/27/2015 2:40 PM EST) Blood Culture ? Patient Name: MIRNA MILTON ?Ordered By: JOSE SANTIAGO ? MR#: [id number] ?LOC: ??5WST ? /Sex: ??1945 (69 years), [...] MICROBIOLOGY - BLOOD ORDERABLES Performing Organization Address City/[facility] de Phone Number [facility] * APTT (01/27/2015 2:40 PM EST) Partial Thromboplastin Time 31 25 - 35 sec [facility]ERNER MILLENNIUM Comment: Recommended therapeutic PTT range for full dose unfractionated heparin is 80-114 seconds. Blood specimen (specimen) 01/27/2015 2:40 PM EST 01/27/2015 2:54 PM EST Narrative Resulting Agency Comment Spec In Lab Jose Santiago MD HEMATOLOGY ORDERABLE S Performing Organization Address [facility] de Phone Number [facility] * Prothrombin Time (01/27/2015 2:40 PM EST) Prothrombin Time 14.8 12.5 - 15.5 sec [facility] MILLENNIUM Comment: Transfusion Committee Guidelines: INR less than 2.0, PTT less than OR equal to 43.5 seconds, or Fibrinogen greater than or equal to 100 mg/dl indicate adequate procoagulant activity for hemostasis in patients without underlying bleeding disorders. International Normalization Ratio 1.1 0.9 - 1.1 [facility] MILLENNIUM Blood specimen (specimen) 01/27/2015 2:40 PM EST 01/27/2015 2:54 PM EST Narrative Resulting Agency Comment Spec In Lab Jose Santiago MD HEMATOLOGY ORDERABLE S Performing Organization Address [facility] Phone Number [facility] * (ABNORMAL) Comprehensive metabolic panel (non-fasting) (01/27/2015 2:40 PM EST) Glucose 118 60 - 199 mg/dL [facility] MILLENNIUM Comment:Diabetes: >=200 mg/d L plus symptoms Blood Urea Nitrogen 22(H) 10 - 20 mg/dL [facility] MILLENNIUM Creatinine 0.91 0.80 - 1.50 mg/dL [facility] MILLENNIUM Comment: Please note that the pediatric reference intervals supplied above were not validated at [facility]. Results from pediatric patients should be interpreted [...] the following links into your internet browser. [email or web address] Blood specimen (specimen) 01/27/2015 2:40 PM EST 01/27/2015 2:54 PM EST Narrative Resulting Agency Comment Spec In Lab Jose Santiago MD CHEMISTRY ORDERABLES [facility] * Request for 2nd read CT Chest [...] prostate gland.. Jose Santiago MD IMG OUTSIDE INTERPRE TATION ORDERABLES * Request for 2nd read [...] intravenous administration of 20 mL Magnevist. MRA [place] performed without the use of intravenous contrast. MRA of the neck performed prior to and following intravenous administration of 20 mL Magnevist. Study was performed at [facility] on 01/26/2015. COMPARISON: CT 01/24/2015, carotid [...] of abnormal enhancement, or restricted diffusion. MRA [place]: Intracranial internal carotid arteries are normal in caliber bilaterally. MCA, HARRY, and visualized branches are normal. There is relatively poor flow related enhancement of a portion of the intradural vertebral artery. The left intradural vertebral artery is normal. Basilar artery is normal in caliber. Posterior cerebral arteries are unremarkable. MRA neck: 2-D [id number] images demonstrate normal antegrade flow in the [...] intravenous administration of 20 mL Magnevist. MRA [place] performed withoutthe use of intravenous contrast. MRA of the neck performed prior to andfollowing intravenous administration of 20 mL Magnevist. [facility] COMPARISON: CT 01/24/2015, carotid [...] area of abnormal enhancement, orrestricted diffusion. MRA [place]: Intracranial internal carotid arteries are normalin caliber bilaterally. MCA, HARRY, and visualized branches are normal. Thereis relatively poor flow related enhancement of a portion of the intradural vertebral artery. The left intradural vertebral artery is normal. Basilarartery is normal in caliber. Posterior cerebral arteries are unremarkable. MRA neck: 2-D [id number] images demonstrate normal antegrade flow inthe carotid [...] confluence to the right PICA origin. Jose HINTON OUTSIDE INTERPRE TATION ORDERABLES documented in this [...] 30 Minutes, Indication for (Active or Suspected): DAIRY AND FOOD LABORATORY ASSISTANT/Meningitis 0953 (Given - Provider: Faby Singh RN) dexamethasone (DECADRON) tablet 4 mg (CANCELED)(Linked Group 1) 4 mg, Oral, EVERY 6 HOURS SCHEDULED, First dose on Fri01/27/15 at 1845, Until Discontinued, Routine 0033 (Given - Provider: Abena Berry RN)0519 (Given - Provider: Abena Berry RN)1026 (Given - Provider: So Martinez, MORIAH)1637 (Given - Provider: So Martinez RN)2351 (Given - Provider: Kyung Chang, MORIAH) 0443 (Given - Provider: Kyung Chang, MORIAH) dexamethasone (DECADRON) tablet 4 mg 4 mg, Oral, 2 TIMES DAILY, First dose on Fri01/30/15 at 1400, Until Discontinued, Routine 1408 (Given - Provider: Fbay Singh RN) 0843 (Given - Provider: Faby [...] on Fri01/27/15 at 2200, Until Discontinued, Routine 08 (Given - Provider: So Martinez RN)2100 (Given [...] 30 Minutes, Indication for (Active or Suspected): DAIRY AND FOOD LABORATORY ASSISTANT/Meningitis, Restricted Antibiotic: Please indicate the most appropriate [...] Routine 08 (Given - Provider: So Martinez RN)2102 (Given - Provider: Jimbo Sage RN) vancomycin [...] level., Routine, Indication for (Active or Suspected): DAIRY AND FOOD LABORATORY ASSISTANT/Meningitis 0619 (Given - Provider: Abena Berry RN)1710 [...] HOURS, First dose (after last reorder) on Fri15 at 0500, Until Discontinued, Maximum infusion rate is 1 gram/hour. If flushing of the face, neck, upper body, arms, and/or back occurs decrease infusion rate by 50% to reduce the severity of symptoms. This medication may have an associated drug lab level. Please see MAR for scheduled level., Routine, Indication for (Active or Suspected): DAIRY AND FOOD LABORATORY ASSISTANT/Meningitis And Vancomycin, trough (CANCELED) New collection, Timed, [...] Routine documented in this encounter Care Teams Steel Wool Machine Operator Relationship Specialty Start Date End Date Mirna Orosco MD [address] [place] [address] PCP - General 01/27/15 06/30/18 documented as of this encounter
--- OUTSIDE RECORDS SUMMARY | 2024-09-25 08:46 | XMS_ITS | Encounter Summary ---
[place] [address] Care Team Providers Care Stack Supervisor Name Role Phone Camacho Irwin MD Primary Care Provider [phone] Encounter Details Date Type Department Care Team (Late st Contact Info) Description 01/27/2015 Orders [place] [address] Jose Small MD [facility] [place] [address] Social History Tobacco Use Types Packs/Day Years [...] on filedocumented in this encounter Care Teams Stack Supervisor Relationship Specialty Start Date End Date Camacho Irwin MD [address] [place] [address] PCP - General 01/27/15 06/30/18 documented as of this encounter
--- OUTSIDE RECORDS SUMMARY | 2024-09-25 08:46 | XMS_ITS | Encounter Summary ---
[place] [address] Care Team Providers Care Collector Of Port Name Role Phone Camacho Irwin MD Primary Care Provider [phone] Encounter Details Date Type Department Care Team (Late st Contact Info) Description 01/26/2015 Orders [place] [address] Jose Small MD [facility] [place] [address] Social History Tobacco Use Types Packs/Day Years [...] on filedocumented in this encounter Care Teams Collector Of Port Relationship Specialty Start Date End Date Camacho Irwin MD [address] [place] [address] PCP - General 01/27/15 06/30/18 documented as of this encounter
--- OUTSIDE RECORDS SUMMARY | 2024-09-25 08:46 | XMS_ITS | Encounter Summary ---
[place] [address] Care Team Providers Care Wrapper Opener Name Role Phone Camacho Irwin MD Primary Care Provider [phone] Encounter Details Date Type Department Care Team (Late st Contact Info) Description 01/26/2015 [place] [address] Jose Small MD [facility] [place] [address] Social History Tobacco Use Types Packs/Day Years [...] on filedocumented in this encounter Care Teams Wrapper Opener Relationship Specialty Start Date End Date Camacho Irwin MD [address] [place] [address] PCP - General 01/27/15 06/30/18 documented as of this encounter
== END 2024-09-25 09:40 | disposition home or self-care (01) ==
PROVIDERS: Emergency Provider Emergency Medicine; PCP Family Medicine
DX: Z48.812 Encounter for surgical aftercare following surgery on the circulatory system (principal); T81.89XA Other complications of procedures, not elsewhere classified, initial encounter
CPT/HCPCS: 99283

== ENCOUNTER 2024-10-18 12:06 | Outpatient (CLI) | payer MEDICARE, SELFPAY ==
--- NOTE | 2024-10-18 11:00 | DI.RAD_ITS ---
Exam(s) XR SHOULDER RT COMPLETE 2+V EXAM: XR SHOULDER RT COMPLETE 2+V CLINICAL HISTORY: Rupture of rt triceps muscle, S46.311A, R/O bony involvement. TECHNIQUE: 2D digital imaging was performed. COMPARISON: No exams were available for comparison FINDINGS: 3 views No evidence of acute fracture or dislocation. There is an osteophytic ridge on the undersurface of t he a chromium most probably causing impingement upon the rotator cuff mechanism. The subacromial spa ce is otherwise unremarkable. There are moderate degenerative changes in the glenohumeral joint. On ly mild degenerative changes in the AC joint. IMPRESSION: Degenerative changes as above. Also osteophytic undersurface ridge on the a chromium probably causin g impingement on the rotator cuff mechanism. DATA REPOSITORY: RADIATION DOSE DELIVERED:
== END 2024-10-18 12:26 ==
LOC: DI 12:07
PROVIDERS: PCP Family Medicine; Visit Provider Family Medicine
DX: S46.311D Strain of muscle, fascia and tendon of triceps, right arm, subsequent encounter (principal); X58.XXXD Exposure to other specified factors, subsequent encounter
CPT/HCPCS: 73030

== ENCOUNTER → 2024-10-26 12:57 | Outpatient (BNVA) | payer MEDICARE, SELFPAY | PROVIDERS: PCP Family Medicine; Referring Provider Family Medicine; Visit Provider Student in an Organized Health Care Education/Training Program | DX: M75.101 Unspecified rotator cuff tear or rupture of right shoulder, not specified as traumatic (principal); W01.190D Fall on same level from slipping, tripping and stumbling with subsequent striking against furniture, subsequent encounter | CPT/HCPCS: 99213 ==

== ENCOUNTER 2025-01-18 17:51 | Emergency (ER) | payer MEDICARE, SELFPAY ==
[2025-01-18 18:00] VITALS: BP 139/94; PULSE 77; RESP 12; TEMP 36.4; O2SAT 96
--- NOTE | 2025-01-18 18:00 | DI.RAD_ITS ---
Exam(s) XR RIBS RT W PA LAT CHEST EXAM: XR RIBS RT W PA LAT CHEST CLINICAL HISTORY: Right rib pain, Fall 4 days ago TECHNIQUE: 2D digital imaging was performed. COMPARISON: CR XR CHEST 2V PA LATERAL from 01/20/2024 FINDINGS: RIBS 4 VIEWS-RIGHT On 1 image there is a subtle suggestion of ane nondisplaced fracture of what appears to be probably t he 7th or 8th rib. Not seen on the other images. No pneumothorax Ipsilateral clavicle appears unremarkable. CXR- 2 VIEWS: Mild cardiomegaly. Mediastinum is not widened. Slight elevation the right hemidiaphragm again noted . Left lung is clear. Slightly increased markings noted in the right lung base probably exaggerated by suboptimal inspiration. There is no lung contusion. No pneumothorax. Heart size is normal and there is no significant mediastinal widening. IMPRESSION: 1. Probable subtle nondisplaced fracture of the right 7th or 8th rib 2. No acute ipsilateral lung nor pleural abnormality evident. No pneumothorax. DATA REPOSITORY: RADIATION DOSE DELIVERED:
--- NOTE | 2025-01-18 18:00 | RT.EKG_ITS ---
APPROVED REPORT Exam: Resting ECG Reason for Exam: Hx of A fib, Fall Patient Location: E HR:108 bpm ECG Measurements Heart Rate 108 AXIS KS [id number] P [id number] QRSd 81 QRS 0 QT 347 T 48 QTc 466 Conclusion Atrial fibrillation...V-rate 79-136, irreg A-activity Indeterminate axis...QRS axis indeterminate No STEMI
--- NOTE | 2025-01-18 18:19 | W.ED.GENAD ---
Discharge Plan Disposition Patient Disposition: Home Condition: Stable Discharge Details Clinical Impression: Closed fracture of rib of right side Primary Care Provider: Camacho Barrera ED Provider: Jacquie Mas Home Meds and New Rx's Prescriptions: New lidocaine 5 % adhesive patch,medicated 1 patch topical DAILY Qty: 15 0RF Rx Instructions: leave on most painful area for up to 12 hrs cyclobenzaprine 10 mg tablet 10 mg PO TID PRN (Reason: muscle spasm) Qty: 7 0RF Continued furosemide 20 mg tablet 20 mg PO DAILY PRN fluorouracil 5 % cream 1 applic topical BID PRN (Reason: Ear lesion) finasteride 5 mg tablet 5 mg PO DAILY Qty: 90 3RF timolol maleate 0.5 % gel forming solution 1 drp ophthalmic (eye) BID lisinopril 2.5 mg tablet 2.5 mg PO DAILY Qty: 90 3RF atorvastatin 80 mg tablet 80 mg PO DAILY Qty: 90 3RF clopidogrel 75 mg tablet 75 mg PO DAILY diltiazem HCl 240 mg capsule,extended release 24hr 240 mg PO DAILY Patient Comments: TAKE ONE CAPSULE BY MOUTH EVERY MORNING Discharge Instructions Instructions: Rib Fracture or Bruised Rib ED Additional Instructions: X-rays show a nondisplaced fractured rib around #7 or 8. No evidence of lung collapse or lung contusion. A prescription for the muscle relaxer and lidocaine patches was sent to the pharmacy on file. You were given morphine tablets to go here in the emergency department please only take those for moderate to severe pain prior to sleeping. Do not operate heavy machinery these may make you sleepy. Please take Tylenol or Ibuprofen with food every 4-6 hours as needed for pain and swelling. Take the medications with food. Use the incentive spirometer as instructed. Return to the ER for any worsening shortness of breath, fever, productive cough, pain not relieved by the measures above, or any concerns. Follow up with primary care provider in 3-5 days. Return to ED sooner if any worsening or concerns. Thank you for allowing us to care for you today. Referrals: Camacho Barrera DO [Primary Care Provider] - 1 week HPI General Mode of arrival: wheelchair. Date/Time Provider Initiated Documentation: 01/18/25 17:55. Limitations to Documentation: no limitations. Information obtained by: patient, family, RN notes reviewed and old records reviewed. HPI Narrative: 79-year-old male presents to the ER after having a fall in the bathroom on Friday. Patient reports that he hit the right side of his ribs on the tub. He states that he had no severe pain initially but the next morning he had some posterior right rib cage pain. He denies any loss of consciousness did not hit his head. He has been taking some hydrocodone Tylenol last at noon with little to no relief. He does have some pain with palpation to his right upper rib cage. He denies any fever or chills he does report feeling hot and cold. Lung sounds are clear to auscultation bilaterally. No ecchymosis or bruising noted. No midline tenderness. Denies any hip pain knee pain abdominal pain or any other associated symptoms. He does have a history of high cholesterol, atrial fibrillation, CHF, history of ischemic stroke. He has had an ablation a carotid endarterectomy. He does take Plavix diltiazem and atorvastatin regularly. Also takes furosemide. Related Data Home Medications ?Medication ?Instructions ?Recorded ?Confirmed timolol maleate 0.5 % eye gel 1 drp ophthalmic (eye) BID 05/08/23 01/18/25 forming solution clopidogrel 75 mg tablet 75 mg PO DAILY 07/17/23 01/18/25 lisinopril 2.5 mg tablet 2.5 mg PO DAILY #90 tabs 02/20/24 01/18/25 furosemide 20 mg tablet 20 mg PO DAILY PRN 05/13/24 01/18/25 atorvastatin 80 mg tablet 80 mg PO DAILY #90 tabs 06/07/24 01/18/25 fluorouracil 5 % topical cream 1 applic topical BID PRN Ear lesion 07/22/24 01/18/25 finasteride 5 mg tablet 5 mg PO DAILY #90 tabs 10/04/24 01/18/25 cyclobenzaprine 10 mg tablet 10 mg PO TID PRN muscle spasm #7 01/18/25 tabs diltiazem HCl 240 mg 240 mg PO DAILY 01/18/25 01/18/25 capsule,extended release 24 hr lidocaine 5 % topical patch 1 patch topical DAILY #15 ea 01/18/25 Previous Rx's ?Medication ?Instructions ?Recorded lisinopril 2.5 mg tablet 2.5 mg PO DAILY #90 tabs 02/20/24 atorvastatin 80 mg tablet 80 mg PO DAILY #90 tabs 06/07/24 finasteride 5 mg tablet 5 mg PO DAILY #90 tabs 10/04/24 cyclobenzaprine 10 mg tablet 10 mg PO TID PRN muscle spasm #7 01/18/25 tabs lidocaine 5 % topical patch 1 patch topical DAILY #15 ea 01/18/25 Allergies Allergy/AdvReac Type Severity Reaction Status Date / Time venom-honey bee (bee venom Allergy Severe HIVES Verified 01/18/25 18:03 (honey bee)) TACHYCARDIA Penicillins Allergy Intermediate HIVES Verified 01/18/25 18:03 shrimp Allergy Intermediate Other (See Verified 01/18/25 18:03 Comment) levetiracetam (From [facility]) AdvReac Severe leukopenia Verified 01/18/25 18:03 prednisone AdvReac Severe rectal Verified 01/18/25 18:03 bleeding and diarrhea aspirin AdvReac Intermediate Nosebleeds Verified 01/18/25 18:03 ceftriaxone AdvReac Intermediate Leukopenia Verified 01/18/25 18:03 simvastatin AdvReac Intermediate LEG PAIN Verified 01/18/25 18:03 DR MCLEOD Contrast dye Allergy Severe Anaphylaxis Uncoded 01/18/25 18:03 General Stated Complaint: Chest/Rib PALOMA: 3 Review of Systems All systems reviewed & are unremarkable except as noted in HPI and below Musculoskeletal Musculoskeletal: Reports as per HPI, Reports back pain and Reports stiffness Exam Narrative Exam Narrative: General: Well Developed, Awake and Alert, conversant. Skin: Warm and Dry HEENT: Head: No palpable deformities, Normocephalic Eyes: Pupils PERRLA, EOM's intact. No periorbital eccymosis or step off Ears: Canal patent. Tympanic membranes are clear . No zepeda's sign, no hemptympanum. Nose/Face: Atraumatic. Facial bones nontender to palpation and stable with manipulation. Mouth/Throat: No intraoral trauma. Teeth and mandible are intact. Neck: No midline tenderness, no step off, no deformity to palpation of C-spine. Trachea midline. Chest: No surface trauma. Tenderness with palpation to the right posterior upper rib cage, no midline tenderness. Lungs clear to ausculatation bilaterally. Heart: RRR, no rubs, murmurs or gallop. Abdomen: No abrasions, ecchymosis, or surface trauma. Nondistended. Nontender to palpation no guarding, rebound, or rigidity. Pelvis: Nontender to palpation and stable to compression. Femoral pulses strong and equal Extremities: no surface trauma. Sensation intact. Peripheral pulses intact and equal. Neuro: ANO x4, GCS 15, cranial nerves II through XII intact. Motor and sensory exam nonfocal. Reflexes are symmetric. Course Vital Signs Vital signs: Vital Signs Temperature 36.4 C L 01/18/25 18:00 Pulse 77 01/18/25 18:00 Respiratory Rate 12 01/18/25 18:00 Blood Pressure 139/94 H 01/18/25 18:00 Pulse Oximetry 96 01/18/25 18:00 Temperature 36.4 C L 01/18/25 18:00 Temperature Source Oral 01/18/25 18:00 Pulse 77 01/18/25 18:00 Respiratory Rate 12 01/18/25 18:00 Blood Pressure 139/94 H 01/18/25 18:00 Blood Pressure Position Sitting 01/18/25 18:00 Pulse Oximetry 96 01/18/25 18:00 Oxygen Delivery Method Room Air 01/18/25 18:00 Oxygen Flow Rate 0 01/18/25 18:00 Pain Level 10 01/18/25 18:00 Medical Decision Making 79-year-old male presents to the ER after having a fall in the bathroom on Friday. Patient reports that he hit the right side of his ribs on the tub. He states that he had no severe pain initially but the next morning he had some posterior right rib cage pain. He denies any loss of consciousness did not hit his head. He has been taking some hydrocodone Tylenol last at noon with little to no relief. He does have some pain with palpation to his right upper rib cage. He denies any fever or chills he does report feeling hot and cold. Lung sounds are clear to auscultation bilaterally. No ecchymosis or bruising noted. No midline tenderness. Rib series x-ray ordered, EKG, lidocaine patch Tylenol, Flexeril. Will give morphine to go home with, lidocaine patches and flexeril instructed to take Tylenol and ibuprofen. Will give an incentive spirometer. There is subtle nondisplaced fractures on the right seventh or eighth rib. No pneumothorax. This text was generated using Repunchation system, please disregard any oddities of phrase or misspellings. Patient discharged via wheelchair in the care of his family. Remained hemodynamically stable alert and oriented throughout his stay. Medical Records Medical records reviewed: Yes I reviewed the patient's medical records. Imaging Data Radiologic Study: Imaging: X-Ray Radiologist's impression: CLINICAL HISTORY: Right rib pain, Fall 4 days ago TECHNIQUE: 2D digital imaging was performed. COMPARISON: CR XR CHEST 2V PA LATERAL from 01/20/2024 FINDINGS: RIBS 4 VIEWS-RIGHT On 1 image there is a subtle suggestion of ane nondisplaced fracture of what appears to be probably the 7th or 8th rib. Not seen on the other images. No pneumothorax Ipsilateral clavicle appears unremarkable. CXR- 2 VIEWS: Mild cardiomegaly. Mediastinum is not widened. Slight elevation the right hemidiaphragm again noted. Left lung is clear. Slightly increased markings noted in the right lung base probably exaggerated by suboptimal inspiration. There is no lung contusion. No pneumothorax. Heart size is normal and there is no significant mediastinal widening. IMPRESSION: 1. Probable subtle nondisplaced fracture of the right 7th or 8th rib 2. No acute ipsilateral lung nor pleural abnormality evident. No pneumothorax. Quality:[facility] Health Related Social Needs: No Data to Display PFSH All Active Problems (Updated 01/18/25 @ 19:20 by Jacquie Mas NP) Closed fracture of rib of right side (Acute) History of right-sided carotid endarterectomy (Acute) Performed at [facility] on 09/15/[address] Ramiro Chandra Sleep related hypoxia (Acute) CHF (congestive heart failure) (Chronic) Atherosclerosis of aorta (Chronic) Low back pain (Acute) History of left-sided carotid endarterectomy (Acute) 07/16/2023 at [facility] Peripheral artery disease (Acute) 08/15/23 F/u Vascular Hyperlipidemia, unspecified (Acute) Occlusion of right vertebral artery (Acute) Carotid stenosis, bilateral (Chronic) Asympomatic Macrocytosis without anemia (Acute) Primary open angle glaucoma (POAG) of right eye, mild stage (Chronic) Tricuspid regurgitation (Acute) Beat, premature ventricular (Acute ~08/2022) 09/11/22 Cardiology 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 (Acute) Trigger middle finger of right hand (Acute 04/25/16) Abdominal aortic aneurysm (AAA) 3.0 cm to 5.5 cm in diameter in male (Chronic) Found in October 2018, needs to be rechecked every 3 years Pure hypercholesterolemia (Chronic 01/31/12) goal LDL<70 Metabolic syndrome X (Chronic 02/15/13) goal 215# 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 s/p stenting x 5 2010 or 2011 at [facility] b. presenting symptom was primarily fatigue Hypertension (Chronic) Benign prostatic hypertrophy (Chronic) Atrial fibrillation (Chronic) I48.0 Paroxysmal atrial fibrillation 10/09/20 [facility] Cardiology Medical History Fall Orthostatic hypotension Elevated troponin I level Ischemic stroke Hx of colonic polyps H/O: urinary stone Surgical History S/P carotid endarterectomy S/P ablation of atrial fibrillation (10/2018) steriotactic brain bx (01/27/15) [facility] bx brain abscess R small trigger finger release (05/28/16) [place] Family History Mother , HF at age 89. Heart disease Father , stroke HBP at age 90. Essential hypertension Brother , heart at age 82. No problems noted. Brother No problems noted. 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 [employer] Pets and animals: No Sexually active: Yes Do you think of yourself as: straight/heterosexual Current gender identity: male What is your relationship status?: How often do you talk on the phone with friends or family?: three or more times per week How often do you get together with friends or relatives?: three or more times per week Do you belong to any clubs or organized social groups?: yes Panel score (0-1 are the most socially isolated patients): 3 What type of physical activity do you participate in: none Cassidy/Rastafari: None Special cassidy needs: No Seatbelt use: always Drive intox or ride w/intox mobile lounge driver or operator: No Working smoke detector in home: Yes Fire extinguisher in home: Yes Carbon monox detector in home: Yes Do you feel safe at home: Yes Do you feel safe in your relationship?: Yes Additional Social history: 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 Lives with Kisha in [facility]
[2025-01-18] MEDS: Cyclobenzaprine 10 MG TAB PO (19:04)
[2025-01-18] MEDS: Acetaminophen 325 MG TAB 650 MG PO (19:04)
[2025-01-18] MEDS: Lidocaine 5% Patch 1 PATCH TP (19:05)
[2025-01-18] MEDS: MORPHine IR 15 MG TAB, 4 TABS/BTL PO (19:47)
[2025-01-18] MEDS: Cyclobenzaprine 10 MG TAB, 3 TABS/BTL PO (19:47)
== END 2025-01-18 19:49 | disposition home or self-care (01) ==
PROVIDERS: Emergency Provider Registered Nurse Emergency; PCP Family Medicine
DX: S22.31XA Fracture of one rib, right side, initial encounter for closed fracture (principal); I10 Essential (primary) hypertension; I25.10 Atherosclerotic heart disease of native coronary artery without angina pectoris; I48.0 Paroxysmal atrial fibrillation; Z95.5 Presence of coronary angioplasty implant and graft; Z79.01 Long term (current) use of anticoagulants; X58.XXXA Exposure to other specified factors, initial encounter
CPT/HCPCS: 93005; 99284; 71046; 71100; 93010

== ENCOUNTER 2025-09-28 11:03 | Emergency (ER) | payer MEDICARE, SELFPAY ==
[2025-09-28] VITALS (26 sets, daily range): BP systolic 87–143; BP diastolic 60–104; PULSE 61–115; RESP 10–24; TEMP 36.1; O2SAT 85–99
--- NOTE | 2025-09-28 11:00 | RT.EKG_ITS ---
APPROVED REPORT Exam: Resting ECG Reason for Exam: afib Patient Location: E HR:106 bpm ECG Measurements Heart Rate 106 AXIS HI [id number] P [id number] QRSd 80 QRS 56 QT 368 T 88 QTc 489 Conclusion Atrial fibrillation...V-rate 74-134, irreg A-activity Ventricular premature complex...V complex w/ short R-R interval Low voltage, precordial leads...precordial leads <1.0mV No Occlusion NE
--- NOTE | 2025-09-28 11:00 | DI.RAD_ITS ---
Exam(s) XR PORTABLE CHEST AP EXAM: XR PORTABLE CHEST AP CLINICAL HISTORY: SOB. TECHNIQUE: 2D digital imaging was performed. COMPARISON: CR XR RIBS RT W PA LAT CHEST from 01/18/2025 FINDINGS: Single AP portable view. Cardiomegaly again noted. Mediastinum is not widened. Lungs are clear. No infiltrates nor obvious pleural effusions. There is no pulmonary edema. IMPRESSION: No acute pulmonary findings on this single AP portable view of the chest. Cardiomegaly is again noted. DATA REPOSITORY: RADIATION DOSE DELIVERED:
--- NOTE | 2025-09-28 11:13 | W.ED.GENAD ---
Discharge Plan Disposition Patient Disposition: Home Discharge Details Clinical Impression: Episode of generalized weakness Primary Care Provider: Camacho Barrera ED Provider: Micheal Prado Home Meds and New Rx's Prescriptions: Continued fluorouracil 5 % cream 1 applic topical BID PRN (Reason: Ear lesion) finasteride 5 mg tablet 5 mg PO DAILY Qty: 90 3RF timolol maleate 0.5 % gel forming solution 1 drp ophthalmic (eye) BID lisinopril 2.5 mg tablet 2.5 mg PO DAILY Qty: 90 3RF atorvastatin 80 mg tablet 80 mg PO DAILY Qty: 90 3RF diltiazem HCl 240 mg capsule,extended release 24hr See Rx Instructions .ROUTE .COMPLEX Qty: 180 3RF Dose Instruction: TAKE ONE CAPSULE BY MOUTH TWICE A DAY Rx Instructions: TAKE ONE CAPSULE BY MOUTH TWICE A DAY furosemide [Lasix] 20 mg tablet 20 mg PO DAILY clopidogrel 75 mg tablet 75 mg PO DAILY Discharge Instructions Additional Instructions: You are seen in the emerged part for your weakness. Your blood work shows that your heart is working well. Please return to emergency department if you develop shortness of breath dizziness or if you pass out. Otherwise please follow-up with your primary care provider as needed next week. Discharge Data Discharge Date/Time-TO BE ENTERED AT DEPARTURE: 09/28/25 15:14 HPI General Date/Time Provider Initiated Documentation: 09/28/25 11:11. HPI Narrative: MDM This is an elderly appearing 79-year-old male with atrial fibrillation not on anticoagulation with generalized weakness concerning for multiple etiologies. No focal weakness to suggest CVA so I do not feel patient requires a CT scan of the head. No black or bloody stools to suggest anemia. No cough to suggest pneumonia. Will assess for acute electrolyte abnormalities and renal insufficiency in the event that the patient has been overdiuresed. He does not appear to be in acute heart failure as he is no lower extremity pitting edema. Nonetheless we will obtain proBNP to compare to prior. He has a soft nontender abdomen so I am not suspicion for acute abdominal infection. No pain out of proportion to suggest necrotizing soft tissue infection. Patient is not altered to suggest encephalitis. No nuchal rigidity to suggest meningitis and no indication for lumbar puncture. Considered sepsis however in the absence of fevers do not feel patient required broad-spectrum antibiotics nor assessment of blood cultures. Will reassess following labs. 2:41 PM Comprehensive metabolic panel showing no acute electrolyte abnormalities. Mild new hyperbilirubinemia. Mild hypoalbuminemia. Reassuring troponin. In the absence of chest pain I do not feel patient requires a repeat troponin. Normal magnesium. Mildly elevated proBNP. Given patient's new low voltage on ECG a completed bedside echocardiogram which showed preserved EF and no significant pericardial effusion. Chest x-ray with no acute cardiopulmonary process but persistent cardiomegaly. Patient's tachycardia resolved. He did not become hypotensive. He was able to ambulate and tolerate p.o. in the emergency department. He had a negative age-adjusted D-dimer. Patient reported that his was admitted upstairs. I advised that he should return to the emergency department if you develop any symptoms of weakness nausea vomiting chest pain or shortness of breath. 09/29 I called the patient at home to inquire as to how he was feeling. He reported that he had rested well. He reported that he was not having any shortness of breath or any chest pain. He was planning on returning to the hospital today to visit his . Advised that if he had any symptoms or had any concerns at all that he should return to the emergency department. He reported that he was with his daughter at the moment. Diagnostic interpretations performed by me: Per my independent interpretation chest x-ray shows: No acute cardiopulmonary process Per my independent interpretation EKG shows: Rate controlled atrial fibrillation rate of 106. Normal axis. Intervals within normal limits. New low voltage in left chest wall leads. HPI History of Present Illness This is a patient with a history of depression presenting with feelings of extreme fatigue and depression. The patient reports that approximately a week and a half ago, they began experiencing a persistent desire to sleep and feelings of depression. The patient denies any chest pain, trouble breathing, or fever. The patient mentions a recent change in their medication, specifically an increase in furosemide dosage due to mild fluid accumulation detected during a follow-up after a Watchman procedure. The patient has not had a blood test since the medication change and was advised to get lab tests to monitor the effects of the medication. The patient reports no unintentional weight gain and notes a decrease in appetite over the past two days. The patient denies any abdominal pain or leg swelling but describes feeling completely drained. The patient reports no suicidal ideation or unilateral weakness. PAST SURGICAL HISTORY: Watchman procedure. Exam General: Well-appearing in no acute distress speaking in complete sentences. Head: Normocephalic, atraumatic. Eye: Extraocular eye movements intact. No conjunctival injection. No scleral icterus. Ear, nose, mouth, throat: Grossly normal inspection. Normal voice, handling secretions normally. Neck: Trachea midline. Cardiovascular: Well-perfused distal extremities. Irregularly irregular rate. Respiratory: Nonlabored respiration. Clear lungs bilaterally. Gastrointestinal: Nondistended abdomen. Soft. Nontender. Musculoskeletal: No significant lower extremity pitting edema. Moving all 4 extremities spontaneously. Skin: Normal for age and race, grossly normal temperature and turgor. No acute rash. Neurologic: Alert and appropriate, no apparent acute deficits. Cranial nerve II. Intact grossly. Psychiatric: Mood and manner are appropriate. Grooming and personal hygiene are appropriate. Related Data Home Medications Medication Instructions Recorded Confirmed timolol maleate 0.5 % eye gel 1 drp ophthalmic (eye) BID 05/08/23 09/28/25 forming solution clopidogrel 75 mg tablet 75 mg PO DAILY 07/17/23 09/28/25 fluorouracil 5 % topical cream 1 applic topical BID PRN Ear lesion 07/22/24 09/28/25 finasteride 5 mg tablet 5 mg PO DAILY #90 tabs 10/04/24 09/28/25 lisinopril 2.5 mg tablet 2.5 mg PO DAILY #90 tabs 02/15/25 09/28/25 atorvastatin 80 mg tablet 80 mg PO DAILY #90 tabs 06/06/25 09/28/25 diltiazem HCl 240 mg See Rx Instructions .Route 07/29/25 09/28/25 capsule,extended release 24 hr .COMPLEX #180 caps furosemide 20 mg tablet (Lasix) 20 mg PO DAILY 08/19/25 09/28/25 Previous Rx's Medication Instructions Recorded finasteride 5 mg tablet 5 mg PO DAILY #90 tabs 10/04/24 lisinopril 2.5 mg tablet 2.5 mg PO DAILY #90 tabs 02/15/25 atorvastatin 80 mg tablet 80 mg PO DAILY #90 tabs 06/06/25 diltiazem HCl 240 mg See Rx Instructions .Route 07/29/25 capsule,extended release 24 hr .COMPLEX #180 caps Allergies Allergy/AdvReac Type Severity Reaction Status Date / Time Iodinated Contrast Media Allergy Severe Anaphylaxis Verified 09/28/25 11:08 venom-honey bee (bee venom Allergy Severe HIVES Verified 09/28/25 11:08 (honey bee)) TACHYCARDIA Penicillins Allergy Intermediate HIVES Verified 09/28/25 11:08 shrimp Allergy Intermediate Other (See Verified 09/28/25 11:08 Comment) levetiracetam (From [facility]) AdvReac Severe leukopenia Verified 09/28/25 11:08 prednisone AdvReac Severe rectal Verified 09/28/25 11:08 bleeding and diarrhea aspirin AdvReac Intermediate Nosebleeds Verified 09/28/25 11:08 ceftriaxone AdvReac Intermediate Leukopenia Verified 09/28/25 11:08 simvastatin AdvReac Intermediate LEG PAIN Verified 09/28/25 11:08 DR MCLEOD General Stated Complaint: Arrhythmia PALOMA: 3 Course Vital Signs Vital signs: Vital Signs Temperature 36.1 C L 09/28/25 11:03 Pulse 115 H 09/28/25 11:03 Respiratory Rate 18 09/28/25 11:03 Blood Pressure 129/60 09/28/25 11:03 Pulse Oximetry 96 09/28/25 11:03 Temperature 36.1 C L 09/28/25 11:03 Pulse 115 H 09/28/25 11:03 Respiratory Rate 18 09/28/25 11:03 Blood Pressure 129/60 09/28/25 11:03 Pulse Oximetry 96 09/28/25 11:03 Oxygen Delivery Method Room Air 09/28/25 11:03 Oxygen Flow Rate 0 09/28/25 11:03 Pain Level 0 09/28/25 11:03 PFSH All Active Problems (Updated 09/28/25 @ 15:04 by Micheal Prado MD) Episode of generalized weakness (Acute) Congestive heart failure due to valvular disease (Acute) Malaise and fatigue (Acute) Mitral valve insufficiency (Chronic) Presence of Amulet left atrial appendage closure device (Acute) Placed [place] [facility] [place] Bassam Myers. History of right-sided carotid endarterectomy (Acute) Performed at [facility] on 09/15/[address] Ramiro Chandra Sleep related hypoxia (Acute) CHF (congestive heart failure) (Chronic) Atherosclerosis of aorta (Chronic) Low back pain (Acute) History of left-sided carotid endarterectomy (Acute) 07/16/2023 at [facility] Peripheral artery disease (Acute) 08/15/23 F/u Vascular Hyperlipidemia, unspecified (Acute) Occlusion of right vertebral artery (Acute) Carotid stenosis, bilateral (Chronic) Asympomatic Macrocytosis without anemia (Acute) Primary open angle glaucoma (POAG) of right eye, mild stage (Chronic) Tricuspid regurgitation (Acute) Beat, premature ventricular (Acute ~08/2022) 09/11/22 Cardiology 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 (Acute) Trigger middle finger of right hand (Acute 04/25/16) Abdominal aortic aneurysm (AAA) 3.0 cm to 5.5 cm in diameter in male (Chronic) Found in October 2018, needs to be rechecked every 3 years Pure hypercholesterolemia (Chronic 01/31/12) goal LDL<70 Metabolic syndrome X (Chronic 02/15/13) goal 215# 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 s/p stenting x 5 2010 or 2011 at [facility] b. presenting symptom was primarily fatigue Hypertension (Chronic) Benign prostatic hypertrophy (Chronic) Atrial fibrillation (Chronic) I48.0 Paroxysmal atrial fibrillation 10/09/20 [facility] [place]iology Medical History Fall Orthostatic hypotension Elevated troponin I level Ischemic stroke Hx of colonic polyps H/O: urinary stone Surgical History S/P carotid endarterectomy S/P ablation of atrial fibrillation (10/2018) steriotactic brain bx (01/27/15) [facility] bx brain abscess R small trigger finger release (05/28/16) [place] Family History Mother , HF at age 89. Heart disease Father , stroke HBP at age 90. Essential hypertension Brother , heart at age 82. No problems noted. Brother No problems noted. Social History Smoking/Tobacco Use Status: Never Smoking risk assessment performed?: Yes Alcohol Intake: current Alcohol Intake frequency: 0-2 drinks per day Alcohol type: hard liquor Drug use: Never Substance use type: does not use Counseling given: No Adopted: No Caregiver/Support person: No Foster care: No Household members: spouse Housing: house Number of Children: 6 number of grandchildren: 13 Communication Needs: None and Corrective Lenses Education Level: college Details: Bachelor's degree Do you need help understanding health information?: Never current occupation: Retired [employer] Pets and animals: No Sexually active: Yes Do you think of yourself as: straight/heterosexual Current gender identity: male What is your relationship status?: How often do you talk on the phone with friends or family?: three or more times per week How often do you get together with friends or relatives?: three or more times per week Do you belong to any clubs or organized social groups?: yes Panel score (0-1 are the most socially isolated patients): 3 What type of physical activity do you participate in: none Cassidy/Samaritan: None Special cassidy needs: No Seatbelt use: always Drive intox or ride w/intox customer service driver: No Working smoke detector in home: Yes Fire extinguisher in home: Yes Carbon monox detector in home: Yes Do you feel safe at home: Yes Do you feel safe in your relationship?: Yes Additional Social history: 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 Lives with Kisha in [facility]. POCUS Exam (ED) Limited Cardiac Exam DATE OF EXAM: 09/28/25 TIME OF EXAM: 15:02 PROVIDER THAT PERFORMED THE STUDY: Micheal Prado IS THIS A REPEAT EXAM DURING THIS ENCOUNTER: no REASON FOR EXAM: Other indication: Weakness VISUALIZED STRUCTURES: Four Chambers, Left ventricle and LVOT VIEW OBTAINED: Apical 4-Chamber, Parasternal long-axis and Subxiphoid PERTINENT FINDINGS/IMPRESSION: No pericardial effusion and No RV dilation DIFFERENTIAL DIAGNOSES: Aortic outflow track less than 4 cm, good squeeze, RV less than LV, no significant pericardial effusion. Exam complete
[2025-09-28 11:34] LABS: Abs Immature Grans 0.05 10^3/uL (0.0-0.06); HCT 40.9 % (40.0-50.0); HGB 13.3 g/dL (13.5-17.5); Immature Grans % 0.5 %; MCH 32.0 pg (27.0-33.0); MCHC 32.5 % (32.0-36.0); MCV 98 fL (80-95); MPV 11.0 fL (8.0-11.0); Platelet Count 199 10^3/uL (130-400); RBC 4.16 10^6/uL (4.36-5.78); RDW 14.5 % (11.8-14.1); RDW-SD 49.0 fL; WBC 9.33 10^3/uL (4.4-10.8)
[2025-09-28 11:49] LABS: Lab Add On Test DONE
[2025-09-28 13:40] LABS: D-Dimer 782 ng/mlFEU (<500)
[2025-09-28 14:22] LABS: ALT 23 U/L (16-63); AST 8 U/L (15-37); Albumin 3.3 g/dL (3.4-5.0); Alkaline Phosphatase 97 U/L (46-116); Anion Gap 8.1 mmol/L (3-11); BUN 14 mg/dL (7-18); Bilirubin, Total 2.2 mg/dL (0.2-1.0); CO2 30.9 mmol/L (21.0-32.0); Calcium 9.6 mg/dL (8.5-10.1); Chloride 102 mmol/L (98-107); Glucose 112 mg/dL (74-106); INR 1.1 (0.9-1.1); Magnesium 2.3 mg/dL (1.8-2.4); Potassium 3.9 mmol/L (3.5-5.1); Prothrombin Time 11.1 sec (9.1-11.1); Sodium 141 mmol/L (136-145); Total Protein 7.1 g/dL (6.4-8.2); Troponin I 20 ng/L (<or=76)
== END 2025-09-28 15:14 | disposition home or self-care (01) ==
PROVIDERS: Emergency Provider Emergency Medicine; PCP Family Medicine
DX: R53.1 Weakness (principal); R06.02 Shortness of breath
CPT/HCPCS: 99284; 99285; 36415; 80053; 93005; 93308; 71045; 83735; 83880; 84484; 85025; 85379; 85610; 93010

== ENCOUNTER 2025-11-20 08:34 | Inpatient (IN) | payer MEDICARE, SELFPAY ==
[2025-11-20] VITALS (56 sets, daily range): BP systolic 99–159; BP diastolic 56–129; PULSE 51–154; RESP 7–26; TEMP 36.4–36.9; O2SAT 84–99
--- NOTE | 2025-11-20 08:30 | DI.RAD_ITS ---
Exam(s) XR PORTABLE CHEST AP EXAM: XR PORTABLE CHEST AP CLINICAL HISTORY: Chest pain TECHNIQUE: 2D digital imaging was performed of the chest. One image was obtained. An AP view was obtained. COMPARISON: CR XR RIBS RT W PA LAT CHEST from 01/18/2025 CR XR PORTABLE CHEST AP from 09/28/2025 FINDINGS: MEDIASTINUM: Normal. HEART: Mildly enlarged heart. PULMONARY VASCULATURE: There is pulmonary venous congestion. LUNGS: Prominent interstitial markings are seen in the lungs bilaterally suggesting interstitial edema. There is an ill-defined opacity projected in the right lung base.. PLEURAL SPACE: No pleural effusion or pneumothorax. BONE:Within normal limits for the patient's age. OTHER FINDINGS:There is a radiopaque object projecting over the heart shadow to the left of the spine. IMPRESSION: 1. Pulmonary venous congestion and interstitial edema. 2. Question of a left basilar infiltrate. This may represent atelectasis or pneumonia. 3. The preliminary [facility] report was reviewed. DATA REPOSITORY: RADIATION DOSE DELIVERED:
--- NOTE | 2025-11-20 08:30 | RT.EKG_ITS ---
APPROVED REPORT Exam: Resting ECG Reason for Exam: sob Patient Location: E HR:152 bpm ECG Measurements Heart Rate 152 AXIS NM 116 P 254 QRSd 76 QRS 80 QT 318 T 74 QTc 505 Conclusion Supraventricular tachycardia...V-rate>(220-age), QRSd<120 Ventricular tachycardia, unsustained...sequence of 3 or more V complexes Low voltage, precordial leads...precordial leads <1.0mV Repolarization abnormality, prob rate related...ST dep, T neg, tachycardia No Occlusion PA
--- NOTE | 2025-11-20 08:34 | W.ED.GENAD ---
Discharge Plan Disposition Patient Disposition: Admit to [facility] Discharge Details Clinical Impression: Atrial fibrillation with RVR, Acute hypoxemic respiratory failure, Acute heart failure with preserved ejection fraction (HFpEF) Admit Date/Time: 11/20/25 11:14 Admit Provider: Micheal Luna Attending Provider: Micheal Luna Primary Care Provider: Camacho Barrera ED Provider: Micheal Prado Discharge Data Discharge Date/Time-TO BE ENTERED AT DEPARTURE: 11/20/25 13:15 HPI General Date/Time Provider Initiated Documentation: 11/20/25 08:38. HPI Narrative: MDM This is an 80-year-old status post Watchman procedure now with acute heart failure with preserved ejection fraction on daily aspirin and clopidogrel status post Watchman procedure with bilateral B-lines and acute respiratory failure with hypoxia for which he will receive rate control with 0.25 mg/kg diltiazem and oral diltiazem along with 40 mg IV furosemide. 10:45 AM Reassuring normal magnesium. proBNP mildly elevated at 1500. CBC with macrocytic anemia slightly worse compared to prior. No leukocytosis. No thrombocytopenia. Reassuring initial troponin. Competence of metabolic panel with no signs of congestion. No NADEEM. Mild anion gap. Normal bicarbonate. D-dimer less than 1000 ng/mL FEU which is reassuring based on years criteria so we will defer CT angiogram. Chest x-ray with pulmonary venous congestion. Chest x-ray was concerning for possible left lower lobe infiltrate. In the absence of fevers and cough we will defer treatment for pneumonia. Venous blood gas lacks acidemia and hypercarbia. 3:43 PM Later due to patient care. Patient had improved rates in the emergency department following oral and IV diltiazem. I did give patient an additional 10 mg of diltiazem prior to transfer. I was in touch with Dr. Ramirez who graciously agreed to accept the patient for hospitalization in the setting of acute respiratory failure with hypoxia. Diagnostic interpretations performed by me: Per my independent interpretation chest x-ray shows: Increased interstitial markings. Per my independent interpretation EKG shows: A-fib RVR rate 152. Left axis deviation. No acute injury pattern. HPI This is an 80-year-old male presenting with increased difficulty breathing. The patient reports that the difficulty breathing started around 4:30 AM today when he woke up and has progressively worsened over the past several hours. He does not have a history of asthma or COPD. He takes Lasix, suggesting a possible history of congestive heart failure (CHF), although he has not experienced significant CHF symptoms recently. The patient is alert and oriented x4 and can accurately describe his symptoms. He has received a single breathing treatment with DuoNeb and reports feeling significantly better afterward. He is currently on 2 L of nasal cannula oxygen. At home, his oxygen saturation was 87% without supplemental oxygen. He was lying back for comfort rather than assuming a tripod position. There has been no observed cyanosis or significant increase in his need to breathe. The patient mentions that a similar episode occurred once before, but he cannot recall the treatment provided at that time. A 20-gauge IV has been established in his right ACL. He reports no unintentional weight gain. He felt fine last night and went to bed at his normal baseline health but woke up at 4:30 AM feeling like he could not breathe. Exam General: Well-appearing in no acute distress speaking in complete sentences. Head: Normocephalic, atraumatic. Eye: Extraocular eye movements intact. No conjunctival injection. No scleral icterus. Ear, nose, mouth, throat: Grossly normal inspection. Normal voice, handling secretions normally. Neck: Trachea midline. Cardiovascular: Well-perfused distal extremities. Regular irregular rapid rate Respiratory: Nonlabored respiration. Decreased breath sounds bilateral bases. Gastrointestinal: Nondistended abdomen. Soft. Nontender. Musculoskeletal: No significant lower extremity pitting edema. Moving all 4 extremities spontaneously. Skin: Normal for age and race, grossly normal temperature and turgor. No acute rash. Neurologic: Alert and appropriate, no apparent acute deficits. Psychiatric: Mood and manner are appropriate. Grooming and personal hygiene are appropriate. Related Data Home Medications ?Medication ?Instructions ?Recorded ?Confirmed timolol maleate 0.5 % eye gel 1 drp ophthalmic (eye) BID 05/08/23 11/20/25 forming solution clopidogrel 75 mg tablet 75 mg PO DAILY 07/17/23 11/20/25 fluorouracil 5 % topical cream 1 applic topical BID PRN Ear lesion 07/22/24 11/20/25 finasteride 5 mg tablet 5 mg PO DAILY #90 tabs 10/04/24 11/20/25 lisinopril 2.5 mg tablet 2.5 mg PO DAILY #90 tabs 02/15/25 11/20/25 atorvastatin 80 mg tablet 80 mg PO DAILY #90 tabs 06/06/25 11/20/25 diltiazem HCl 240 mg See Rx Instructions .Route 07/29/25 11/20/25 capsule,extended release 24 hr .COMPLEX #180 caps furosemide 20 mg tablet (Lasix) 20 mg PO DAILY #90 tabs 10/10/25 11/20/25 Previous Rx's ?Medication ?Instructions ?Recorded finasteride 5 mg tablet 5 mg PO DAILY #90 tabs 10/04/24 lisinopril 2.5 mg tablet 2.5 mg PO DAILY #90 tabs 02/15/25 atorvastatin 80 mg tablet 80 mg PO DAILY #90 tabs 06/06/25 diltiazem HCl 240 mg See Rx Instructions .Route 07/29/25 capsule,extended release 24 hr .COMPLEX #180 caps furosemide 20 mg tablet (Lasix) 20 mg PO DAILY #90 tabs 10/10/25 Allergies Allergy/AdvReac Type Severity Reaction Status Date / Time Iodinated Contrast Media Allergy Severe Anaphylaxis Verified 09/28/25 11:08 venom-honey bee (bee venom Allergy Severe HIVES Verified 09/28/25 11:08 (honey bee)) TACHYCARDIA Penicillins Allergy Intermediate HIVES Verified 09/28/25 11:08 shrimp Allergy Intermediate Other (See Verified 09/28/25 11:08 Comment) levetiracetam (From [facility]) AdvReac Severe leukopenia Verified 09/28/25 11:08 prednisone AdvReac Severe rectal Verified 09/28/25 11:08 bleeding and diarrhea aspirin AdvReac Intermediate Nosebleeds Verified 09/28/25 11:08 ceftriaxone AdvReac Intermediate Leukopenia Verified 09/28/25 11:08 simvastatin AdvReac Intermediate LEG PAIN Verified 09/28/25 11:08 DR MCLEOD General PALOMA: 3 Medical Decision Making Quality:SDOH Health Related Social Needs: Health related social needs material hardship Health related social needs details n/a Critical Care Time Critical Care Time Critical Care Time: Yes Total Critical Care Time: 60 Attestation: Atrial fibrillation rapid ventricular response. Acute respiratory failure hypoxia PFSH All Active Problems (Updated 11/20/25 @ 15:42 by Micheal Luna) Severe mitral insufficiency (Acute) Alcohol use (Acute) Acute heart failure with preserved ejection fraction (HFpEF) (Acute) Acute hypoxemic respiratory failure (Acute) Atrial fibrillation with RVR (Acute) Congestive heart failure due to valvular disease (Acute) Malaise and fatigue (Acute) Mitral valve insufficiency (Chronic) Presence of Amulet left atrial appendage closure device (Acute) Placed at [facility] – [place] by Dr. Bassam Myers. History of right-sided carotid endarterectomy (Acute) Performed at [facility] [place] on 09/15/[address] Ramiro Chandra Sleep related hypoxia (Acute) Atherosclerosis of aorta (Chronic) Low back pain (Acute) History of left-sided carotid endarterectomy (Acute) 07/16/2023 at [facility] [place] Peripheral artery disease (Acute) 08/15/23 F/u Vascular Hyperlipidemia, unspecified (Acute) Occlusion of right vertebral artery (Acute) Carotid stenosis, bilateral (Chronic) Asympomatic Macrocytosis without anemia (Acute) Primary open angle glaucoma (POAG) of right eye, mild stage (Chronic) Tricuspid regurgitation (Acute) Beat, premature ventricular (Acute ~08/2022) 09/11/22 Cardiology 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 (Acute) Trigger middle finger of right hand (Acute 04/25/16) Abdominal aortic aneurysm (AAA) 3.0 cm to 5.5 cm in diameter in male (Chronic) Found in October 2018, needs to be rechecked every 3 years Pure hypercholesterolemia (Chronic 01/31/12) goal LDL<70 Metabolic syndrome X (Chronic 02/15/13) goal 215# 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 s/p stenting x 5 2010 or 2011 at [facility] b. presenting symptom was primarily fatigue Hypertension (Chronic) Benign prostatic hypertrophy (Chronic) Atrial fibrillation (Chronic) I48.0 Paroxysmal atrial fibrillation 10/09/20 [facility] [place] Cardiology Medical History Fall Orthostatic hypotension Elevated troponin I level Ischemic stroke Hx of colonic polyps H/O: urinary stone Surgical History S/P carotid endarterectomy S/P ablation of atrial fibrillation (10/2018) steriotactic brain bx (01/27/15) [facility] [place] bx brain abscess R small trigger finger release (05/28/16) [place] Family History Mother , HF at age 89. Heart disease Father , stroke HBP at age 90. Essential hypertension Brother , heart at age 82. No problems noted. Brother No problems noted. Social History (Updated 11/20/25 @ 15:25 by Micheal Luna) Smoking/Tobacco Use Status: Never Smoking risk assessment performed?: Yes Alcohol Intake: current Alcohol Intake frequency: 0-2 drinks per day Alcohol type: hard liquor Counseling provided: provider counseling Details: recommend cessation of daily use to improve atrial fibrillation Drug use: Never Substance use type: does not use Counseling given: No Adopted: No Caregiver/Support person: No Foster care: No Household members: spouse Housing: house Number of Children: 6 number of grandchildren: 13 Communication Needs: None and Corrective Lenses Education Level: college Details: Bachelor's degree Do you need help understanding health information?: Never 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 Pets and animals: No Sexually active: Yes Do you think of yourself as: straight/heterosexual Current gender identity: male What is your relationship status?: How often do you talk on the phone with friends or family?: three or more times per week How often do you get together with friends or relatives?: three or more times per week Do you belong to any clubs or organized social groups?: yes Panel score (0-1 are the most socially isolated patients): 3 What type of physical activity do you participate in: none Cassidy/Rastafarian: None Special cassidy needs: No Seatbelt use: always Drive intox or ride w/intox truck driver heavy: No Working smoke detector in home: Yes Fire extinguisher in home: Yes Carbon monox detector in home: Yes Do you feel safe at home: Yes Do you feel safe in your relationship?: Yes Additional Social history: 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 Lives with Kisha, step daughter, and her adult kids [address] [place] POCUS Exam (ED) Limited Cardiac Exam DATE OF EXAM: 11/20/25 TIME OF EXAM: 11:00 PROVIDER THAT PERFORMED THE STUDY: Micheal Prado IS THIS A REPEAT EXAM DURING THIS ENCOUNTER: no REASON FOR EXAM: Dyspnea VISUALIZED STRUCTURES: Four Chambers, Left ventricle and LVOT VIEW OBTAINED: Apical 4-Chamber, Parasternal long-axis and Subxiphoid PERTINENT FINDINGS/IMPRESSION: No pericardial effusion and No RV dilation DIFFERENTIAL DIAGNOSES: Aortic outflow track less than 4 cm, good squeeze, RV less than LV, no significant pericardial effusion. Bilateral B-lines. Exam complete
[2025-11-20 09:12] LABS: BE (Venous) 3 mmol/L (-2-3); HCO3 (Venous) 28 mmol/L (23-28); O2 Sat (Venous) 56 %; TCO2 (Venous) 26 mmol/L (24-29); pCO2 (Venous) 47 mmHg (41-51); pO2 (Venous) 33 mmHg
[2025-11-20 09:13] LABS: Abs Immature Grans 0.03 10^3/uL (0.0-0.06); HCT 38.3 % (40.0-50.0); HGB 12.6 g/dL (13.5-17.5); Immature Grans % 0.3 %; MCH 32.0 pg (27.0-33.0); MCHC 32.9 % (32.0-36.0); MCV 97 fL (80-95); MPV 10.8 fL (8.0-11.0); Platelet Count 203 10^3/uL (130-400); RBC 3.94 10^6/uL (4.36-5.78); RDW 13.7 % (11.8-14.1); RDW-SD 48.7 fL; WBC 10.68 10^3/uL (4.4-10.8)
[2025-11-20 09:30] LABS: Magnesium 1.8 mg/dL (1.6-2.6); Troponin I 22 ng/L (<54)
[2025-11-20 09:31] LABS: ALT 23 U/L (10-49); AST 22 U/L (<34); Albumin 4.0 g/dL (3.2-5.0); Alkaline Phosphatase 115 U/L (46-116); Anion Gap 11.6 mmol/L (3-11); BUN 18 mg/dL (9-23); Bilirubin, Total 1.0 mg/dL (0.2-1.2); CO2 27.4 mmol/L (20.0-31.0); Calcium 9.1 mg/dL (8.3-10.6); Chloride 102 mmol/L (98-107); Glucose 139 mg/dL (74-106); Potassium 3.9 mmol/L (3.5-5.1); Sodium 141 mmol/L (136-145); Total Protein 6.9 g/dL (5.7-8.2)
[2025-11-20 09:41] LABS: D-Dimer 965 ng/mlFEU (<500)
[2025-11-20] MEDS: Furosemide 40 MG/4 ML VIAL IVP (09:43)
[2025-11-20] MEDS: dilTIAZem 25 MG/5 ML VIAL IVP (09:43)
[2025-11-20] MEDS: dilTIAZem CD 120 MG CAPCR 240 MG PO ×2 (09:43→19:10)
--- NOTE | 2025-11-20 09:53 | DI.VRAD_ITS ---
Addendum created by Olga Peter MD on 11/20/2025 9:55:01 AM EST: ADDENDUM: A radiopaque device projects over the heart shadow. Initial report created on 11/20/2025 9:52:47 AM EST: PROCEDURE INFORMATION: Exam: XR Chest Exam date and time: 11/20/2025 9:35 AM Age: 80 years old Clinical indication: Other: Chest pain TECHNIQUE: Imaging protocol: Radiologic exam of the chest. Views: 1 view. COMPARISON: CR XR PORTABLE CHEST AP 09/28/2025 12:00 PM FINDINGS: Limitations: Low lung volumes. Portable technique. Lungs: Low lung volumes, with vascular crowding. Prominence of the central pulmonary vasculature. Vascular markings indistinct in the perihilar regions. Mild hazy opacity at the left lung base. Pleural spaces: Trace bilateral pleural effusions. No pneumothorax. Heart/Mediastinum: Mild cardiomegaly. Bones/joints: Unremarkable. IMPRESSION: 1. Mild interstitial edema. 2. Mild hazy atelectasis and/or pneumonic infiltrate at the left lung base. 3. Trace bilateral pleural effusions. Dictated and Authenticated by: Olga Peter MD. Orderin Johan Burton MD
[2025-11-20 11:33] LABS: Troponin I 24 ng/L (<54)
[2025-11-20] MEDS: dilTIAZem 25 MG/5 ML VIAL 10 MG IVP (13:12)
--- NOTE | 2025-11-20 13:36 | W.PC.ACHO ---
Registration Status: ADM IN Primary Language: Preferred Language: Occitan ED Information & Data Chief Complaint Arrhythmia 11/20/25 12:30 Chief Complaint Arrhythmia 11/20/25 08:41 Triage Note Pt JUANI complaining of 11/20/25 08:41 waking up this morning around 0430 with SOB. EMS reports he has a hx of taking Lasix, but no known lung disease, per pt. Also report he is not a great historian. Pt has HR 120- 150s. Forgot lisinopril last night, took it this morning . Unsure if he took his diltiazem. Sates I took one other pill (with lisinopril ), but didn't take the rest. Medical / Surgical History (Last Reviewed 01/18/25 @ 18:21 by Jacquie Mas NP) Fall Orthostatic hypotension Elevated troponin I level Ischemic stroke Hx of colonic polyps H/O: urinary stone (Last Reviewed 01/18/25 @ 18:21 by Jacquie Mas NP) S/P carotid endarterectomy S/P ablation of atrial fibrillation (10/2018) steriotactic brain bx (01/27/15) R small trigger finger release (05/28/16) Most Recent Vital Signs Temperature 36.9 C 11/20/25 08:41 Temperature Source Oral 11/20/25 08:41 Pulse 115 H 11/20/25 13:12 Pulse 101 H 11/20/25 13:00 Respiratory Rate 14 11/20/25 13:00 Blood Pressure 115/86 11/20/25 10:01 Blood Pressure Mean 96 11/20/25 10:01 Blood Pressure Position Sitting 11/20/25 08:41 Pulse Oximetry 99 11/20/25 13:00 Oxygen Delivery Method Room Air 11/20/25 08:41 Oxygen Flow Rate 0 11/20/25 08:41 Allergies Iodinated Contrast Media Allergy (Severe, Verified 09/28/25 11:08) Anaphylaxis venom-honey bee (bee venom (honey bee)) Allergy (Severe, Verified 09/28/25 11:08) HIVES TACHYCARDIA Bumblebees Penicillins Allergy (Intermediate, Verified 09/28/25 11:08) HIVES shrimp Allergy (Intermediate, Verified 09/28/25 11:08) Other (See Comment) Hives, nausea levetiracetam (From Keppra) Adverse Reaction (Severe, Verified 09/28/25 11:08) leukopenia very low WBC prednisone Adverse Reaction (Severe, Verified 09/28/25 11:08) rectal bleeding and diarrhea aspirin Adverse Reaction (Intermediate, Verified 09/28/25 11:08) Nosebleeds even 81 mg QOD still lead to epistaxis 05/2016 ceftriaxone Adverse Reaction (Intermediate, Verified 09/28/25 11:08) Leukopenia stopped along with Keppra 03/01/2015 due to leukopenia simvastatin Adverse Reaction (Intermediate, Verified 09/28/25 11:08) LEG PAIN DR MCLEOD IV IV Catheter Type [Left Saline Lock Antecubital] Diet Orders Category Date Time Status Heart Healthy Eating [DIET] Nutrition 11/20/25 Lunch Active Diagnostics 11/20/25 11/20/25 Range/Units 10:02 09:02 WBC 10.68 (4.4-10.8) 10^3/uL RBC 3.94 L (4.36-5.78) 10^6/uL Hgb 12.6 L (13.5-17.5) g/dL Hct 38.3 L (40.0-50.0) % MCV 97 H (80-95) fL MCH 32.0 (27.0-33.0) pg MCHC 32.9 (32.0-36.0) % RDW 13.7 (11.8-14.1) % Plt Count 203 (130-400) 10^3/uL MPV 10.8 (8.0-11.0) fL Immature Gran % 0.3 % Neutrophils % 79.3 % Lymphocytes % 7.8 % Monocytes % 6.3 % Eosinophils % 6.0 % Basophils % 0.3 % Nucleated RBC % 0.0 (0.0-0.3) % Absolute Neutrophils 8.48 H (1.2-6.7) 10^3/uL Absolute Lymphocytes 0.83 L (1.2-3.4) 10^3/uL Absolute Monocytes 0.67 (0.1-0.8) 10^3/uL Absolute Eosinophils 0.64 (0.0-0.7) 10^3/uL Absolute Basophils 0.03 (0.0-0.2) 10^3/uL D-Dimer 965 H (<500) ng/mlFEU VBG pH 7.38 (7.31-7.41) VBG pCO2 47 (41-51) mmHg VBG pO2 33 mmHg VBG HCO3 28 (23-28) mmol/L VBG Total CO2 26 (24-29) mmol/L VBG O2 Saturation 56 % VBG Base Excess 3 (-2-3) mmol/L Sodium 141 (136-145) mmol/L Potassium 3.9 (3.5-5.1) mmol/L Chloride 102 (98-107) mmol/L Carbon Dioxide 27.4 (20.0-31.0) mmol/L Anion Gap 11.6 H (3-11) mmol/L BUN 18 (9-23) mg/dL Creatinine 0.80 (0.73-1.18) mg/dL Est GFR (CKD-EPI 2020) 93.01 (mL/min/1.73m2) Glucose 139 H (74-106) mg/dL Calcium 9.1 (8.3-10.6) mg/dL Magnesium 1.8 (1.6-2.6) mg/dL Total Bilirubin 1.0 (0.2-1.2) mg/dL AST 22 (<34) U/L ALT 23 (10-49) U/L Alkaline Phosphatase 115 (46-116) U/L Troponin I 24 22 (<54) ng/L NT-Pro-B Natriuret Pep 1517 H (<300) pg/mL Total Protein 6.9 (5.7-8.2) g/dL Albumin 4.0 (3.2-5.0) g/dL Intake and Output - 24 Hour Total 11/20/25 08:28 thru 11/20/25 12:34 Output Total 650 Balance -650 Weight 99.2 kg Output: Urine 650 Other: # Bowel Movements 1 Falls Risk Assessment History of Falls Previous History 11/20/25 12:30 Contributing Factors Incontinence,Medications 11/20/25 12:30 Ambulatory Aids Independent 11/20/25 12:30 Tubes/Lines With any additional score 11/20/25 12:30 Gait Evaluation W/any additional score 11/20/25 12:30 Cognition No cognitive impairment 11/20/25 12:30 Fall Total Score 61 11/20/25 12:30 Level of Risk High Risk 11/20/25 12:30 Problems (Last Reviewed 01/18/25 @ 18:21 by Jacquie Mas NP) Acute heart failure with preserved ejection fraction (HFpEF) (Acute) Acute hypoxemic respiratory failure (Acute) Atrial fibrillation with RVR (Acute) Attestation Statement: By documenting the first initial, last name, and credentials of the reporting nurse below, both parties acknowledge that all relevant information regarding the patient handoff has been communicated, and that all questions have been addressed to ensure continuity and safety of care. Additional Patient Information/Comments: Report Received From: Gigi Coto RN All questions answer
--- NOTE | 2025-11-20 15:05 | HPE_ITS ---
Date of service: 11/20/25 Time of Service: 15:05 Assessment and Plan Assessment and plan (1) Atrial fibrillation with RVR: Status: Acute Assessment and plan: Rate now well controlled after 25mg and 10mg of IV diltiazem. Continue to monitor closely in ICU He cut his diltiazem in to daily. Looks like this was the 24 hour formulation, but overall dose may not have been sufficient. Resume the 480mg total dose (240mg BID) for now, but he may be better off on intermediate dose of 360mg daily upon discharge. Daily alcohol use, possible untreated ANGE also could be contributing. (2) Acute heart failure with preserved ejection fraction (HFpEF): Status: Acute Assessment and plan: Exam and CXR consistent with fluid overload, CHF Preserved LVEF of 65% in July at [facility] [place], similar to May during his procedure. Afib with RVR is acute trigger, severe MR may be also playing a role. They are related of course. Continue diuresis, get repeat echo. (3) Acute hypoxemic respiratory failure: Status: Acute Assessment and plan: Secondary to above, now on 2L via NC. (4) Coronary disease: Status: Chronic Assessment and plan: On statin and clopidogrel, continue (5) Ischemic stroke: Assessment and plan: Remote, no suggestion of active event. Afib and carotid disease on statin/clopidogrel. (6) Alcohol use: Status: Acute Assessment and plan: 2/day is high risk, especially at his age with his atrial fibrillation. No clear AUD. He agrees to a period of abstainance at this point. (7) Benign prostatic hypertrophy: Status: Chronic Assessment and plan: continue finasteride. (8) Severe mitral insufficiency: Status: Acute Assessment and plan: As above. Cardiology plan had been repeat the echo in December, will get while he is here. (9) Macrocytic anemia: Status: Acute Assessment and plan: could be alcohol related. Last B12 in 2022 low normal. Repeat with folate. Discharge Planning Discharge Planning: home when diuresed, no longer hypoxic, and rate controlled. Expect around 48 hours History of Present Illness History of Present Illness Chief Complaint: SOB Narrative: 80 yo M with history of chornic Afib s/p atrial appendage amulet May 2025, severe MR, CAD s/p PCI/BRENDA x 5 in 2006, s/p CVA (left frontoparietal) 2022, s/p gary CEA , brain abscesses 2014 who presented with acutely worse SOB. Awoke at 4am, needing to catch his breath. This is common for him, but usually resolves and he is able to get back to sleep, but this time it continued. At 6:30am he finally got up and went to his recliner and SOB was worse so he came to ED. He never had chest pain or palpitations. He hasn't noted increased orthopnea, LE edema, weight change, or LESTER prior to this morning. He has not had sore throat, increased runny nose, or cough. Has recurrent epistaxis, last was a few days ago when he used afrin spray a couple times. He typically can do chores around the house, but has to stop and rest after walking about 60 feet. He has been taking his diltiazem regularly, but once a day rather than twice a day (he states his PCP told him this was okay). He does have two shots of Nikhil Bonilla every night at 9:30 and 11pm, which is not new. He mentions his PCP wanted him to do a sleep study, he does snore and wake up taking deep breaths, but he did not want to go through the trouble. Review of Systems All systems reviewed & are unremarkable except as noted in HPI and below PFSH All Active Problems (Updated 11/20/25 @ 15:45 by Micheal Luna) Macrocytic anemia (Acute) Severe mitral insufficiency (Acute) Alcohol use (Acute) Acute heart failure with preserved ejection fraction (HFpEF) (Acute) Acute hypoxemic respiratory failure (Acute) Atrial fibrillation with RVR (Acute) Congestive heart failure due to valvular disease (Acute) Malaise and fatigue (Acute) Mitral valve insufficiency (Chronic) Presence of Amulet left atrial appendage closure device (Acute) Placed at [facility] [place] by Dr. Bassam Myers. History of right-sided carotid endarterectomy (Acute) Performed at [facility] [place] on 09/15/[address] Ramiro Chandra Sleep related hypoxia (Acute) Atherosclerosis of aorta (Chronic) Low back pain (Acute) History of left-sided carotid endarterectomy (Acute) 07/16/2023 at [facility] [place] Peripheral artery disease (Acute) 08/15/23 F/u Vascular Hyperlipidemia, unspecified (Acute) Occlusion of right vertebral artery (Acute) Carotid stenosis, bilateral (Chronic) Asympomatic Macrocytosis without anemia (Acute) Primary open angle glaucoma (POAG) of right eye, mild stage (Chronic) Tricuspid regurgitation (Acute) Beat, premature ventricular (Acute ~08/2022) 09/11/22 Cardiology 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 (Acute) Trigger middle finger of right hand (Acute 04/25/16) Abdominal aortic aneurysm (AAA) 3.0 cm to 5.5 cm in diameter in male (Chronic) Found in October 2018, needs to be rechecked every 3 years Pure hypercholesterolemia (Chronic 01/31/12) goal LDL<70 Metabolic syndrome X (Chronic 02/15/13) goal 215# 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 s/p stenting x 5 2010 or 2011 at [facility] b. presenting symptom was primarily fatigue Medical History Fall Orthostatic hypotension Elevated troponin I level Ischemic stroke Hx of colonic polyps H/O: urinary stone Surgical History S/P carotid endarterectomy S/P ablation of atrial fibrillation (10/2018) steriotactic brain bx (01/27/15) [facility] [place] bx brain abscess R small trigger finger release (05/28/16) [place] Family History Mother , HF at age 89. Heart disease Father , stroke HBP at age 90. Essential hypertension Brother , heart at age 82. No problems noted. Brother No problems noted. Social History (Updated 11/20/25 @ 15:25 by Micheal Luna) Smoking/Tobacco Use Status: Never Smoking risk assessment performed?: Yes Alcohol Intake: current Alcohol Intake frequency: 0-2 drinks per day Alcohol type: hard liquor Counseling provided: provider counseling Details: recommend cessation of daily use to improve atrial fibrillation Drug use: Never Substance use type: does not use Counseling given: No Adopted: No Caregiver/Support person: No Foster care: No Household members: spouse Housing: house Number of Children: 6 number of grandchildren: 13 Communication Needs: None and Corrective Lenses Education Level: college Details: Bachelor's degree Do you need help understanding health information?: Never 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 Pets and animals: No Sexually active: Yes Do you think of yourself as: straight/heterosexual Current gender identity: male What is your relationship status?: How often do you talk on the phone with friends or family?: three or more times per week How often do you get together with friends or relatives?: three or more times per week Do you belong to any clubs or organized social groups?: yes Panel score (0-1 are the most socially isolated patients): 3 What type of physical activity do you participate in: none Cassidy/Methodist: None Special cassidy needs: No Seatbelt use: always Drive intox or ride w/intox carry all driver: No Working smoke detector in home: Yes Fire extinguisher in home: Yes Carbon monox detector in home: Yes Do you feel safe at home: Yes Do you feel safe in your relationship?: Yes Additional Social history: 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 Lives with Kisha, step daughter, and her adult kids [address] [place] [facility] Allergies and Home Medications Allergies Allergy/AdvReac Type Severity Reaction Status Date / Time Iodinated Contrast Media Allergy Severe Anaphylaxis Verified 09/28/25 11:08 venom-honey bee (bee venom Allergy Severe HIVES Verified 09/28/25 11:08 (honey bee)) TACHYCARDIA Penicillins Allergy Intermediate HIVES Verified 09/28/25 11:08 shrimp Allergy Intermediate Other (See Verified 09/28/25 11:08 Comment) levetiracetam (From [facility]) AdvReac Severe leukopenia Verified 09/28/25 11:08 prednisone AdvReac Severe rectal Verified 09/28/25 11:08 bleeding and diarrhea aspirin AdvReac Intermediate Nosebleeds Verified 09/28/25 11:08 ceftriaxone AdvReac Intermediate Leukopenia Verified 09/28/25 11:08 simvastatin AdvReac Intermediate LEG PAIN Verified 09/28/25 11:08 DR MCLEOD Home Medications ?Medication ?Instructions ?Recorded ?Confirmed ?Type timolol maleate 0.5 % eye gel 1 drp ophthalmic (eye) B ID 05/08/23 11/20/25 History forming solution clopidogrel 75 mg tablet 75 mg PO DAILY 07/17/2311/01 History fluorouracil 5 % topical cream 1 applic topical BID IA N Ear lesion 07/22/24 11/20/25 History finasteride 5 mg tablet 5 mg PO DAILY #90 tabs 10/0411/20/25 Rx lisinopril 2.5 mg tablet 2.5 mg PO DAILY #90 tabs 11/20/25 Rx atorvastatin 80 mg tablet 80 mg PO DAILY #90 tabs 06/2411/20/25 Rx diltiazem HCl 240 mg See Rx Instructions .Route 0 07/29/25 11/20/25 Rx capsule,extended release 24 hr .COMPLEX #180 caps furosemide 20 mg tablet (Lasix) 20 mg PO DAILY #90 tab s 10/10/25 11/20/25 Rx Exam Narrative Exam Narrative: GEN: Alert and oriented x 4, pleasant and cooperative, gives linear history. No acute distress at rest. HEENT: Head atraumatic. Conjunctiva clear, no icterus. PEERL, EOMI. no rhinorrhea or bleeding. MMM, OP benign. Neck is supple with no masses or lymphadenopathy, trachea midline LUNGS: CTAB with normal effort CV: Irregularly irregular. I don't appreciate a clear murmur, no gallops, or rubs. No elevation JVP. ABD: active bowel sounds, soft, nontender and nondistended. No masses. EXT: no cyanosis, clubbing. 1+ gary ankle edema MSK: No joint redness or swelling NEURO: CN 2-12 grossly intact. Normal movement of 4 extremities. Normal speech and coordination. No tremor SKIN: No rashes or open wounds. PSYCH: normal mood and affect, nl thought process Results Imaging Chest x-ray: report reviewed (1. Pulmonary venous congestion and interstitial edema. 2. Question of a left basilar infiltrate. This may represent atelectasis or pneumonia. 3. The preliminary [facility] report was reviewed. ) and image reviewed EKG: report reviewed and image reviewed (narrow, irregular tachycardia c/w atrial fibrillation, no ischemic changes) Labs 11/20/25 09:02 11/20/25 09:02 Labs: Laboratory Results - last 24 hr 11/20/25 11/20/25 09:02 10:02 WBC 10.68 RBC 3.94 L Hgb 12.6 L Hct 38.3 L MCV 97 H MCH 32.0 MCHC 32.9 RDW 13.7 Plt Count 203 MPV 10.8 Immature Gran % 0.3 Neutrophils % 79.3 Lymphocytes % 7.8 Monocytes % 6.3 Eosinophils % 6.0 Basophils % 0.3 Nucleated RBC % 0.0 Absolute Neutrophils 8.48 H Absolute Lymphocytes 0.83 L Absolute Monocytes 0.67 Absolute Eosinophils 0.64 Absolute Basophils 0.03 D-Dimer 965 H VBG pH 7.38 VBG pCO2 47 VBG pO2 33 VBG HCO3 28 VBG Total CO2 26 VBG O2 Saturation 56 VBG Base Excess 3 Sodium 141 Potassium 3.9 Chloride 102 Carbon Dioxide 27.4 Anion Gap 11.6 H BUN 18 Creatinine 0.80 Est GFR (CKD-EPI 2020) 93.01 Glucose 139 H Calcium 9.1 Magnesium 1.8 Total Bilirubin 1.0 AST 22 ALT 23 Alkaline Phosphatase 115 Troponin I 22 24 NT-Pro-B Natriuret Pep 1517 H Total Protein 6.9 Albumin 4.0 Last Vital Signs Temp 36.4 C L 11/20/25 13:52 Pulse 85 11/20/25 14:53 Resp 24 11/20/25 13:32 BP 106/68 11/20/25 14:53 Pulse Ox 96 11/20/25 13:32 VTE Prohylaxis Risk Level: Moderate/High Risk Contraindications: None Prophylaxis: Pharmacologic PAWSS Have you Been Recently Intoxicated or Drunk Within the Last 30 days?: No Have you Ever Experienced Previous Episodes of Alcohol Withdrawal?: No Have you ever Experienced Withdrawal Seizures?: No Have you ever Experienced Delirium Tremens(DT)s?: No Have you ever undergone Alcohol Rehabilitation Treatment (i.e, inpt ot outpatient treatment programs)?: No Have you ever Experienced Blackouts?: No Have you ever Combined Alcohol with other Downers within the last 90 days?: No Have you ever Combined Alcohol with any other Substance of Abuse during the last 90 days?: No Positive Blood Alcohol level on Presentation? [PCS.BAL]: No Evidence of Increased Autonomic Activity (i.e. HR>120, tremor, sweating, agitation, nausea)?: No Result: 0 Time Spent Time spent with Patient: >75 minutes Time was spent: preparing to see the patient(eg.review tests), obtaining and/or reviewing separately otained hiistory, ordering medications,tests, procedures, referring, communicating with other health progressive care nurse, indepentently interpreting results, counseling the patient and care coordination
[2025-11-20] MEDS: Furosemide 100 MG/10 ML VIAL 80 MG IVP (15:49)
[2025-11-20] MEDS: Normal Saline Flush 10 ML SYR IVP (19:10)
[2025-11-21] VITALS (58 sets, daily range): BP systolic 94–130; BP diastolic 54–93; PULSE 54–139; RESP 8–34; TEMP 36.1–36.5; O2SAT 79–98
[2025-11-21 06:01] LABS: HCT 37.1 % (40.0-50.0); HGB 12.5 g/dL (13.5-17.5); MCH 32.1 pg (27.0-33.0); MCHC 33.7 % (32.0-36.0); MCV 95 fL (80-95); MPV 11.0 fL (8.0-11.0); Platelet Count 184 10^3/uL (130-400); RBC 3.89 10^6/uL (4.36-5.78); RDW 13.6 % (11.8-14.1); RDW-SD 46.9 fL; WBC 7.61 10^3/uL (4.4-10.8)
[2025-11-21 06:21] LABS: Anion Gap 9.6 mmol/L (3-11); BUN 18 mg/dL (9-23); CO2 30.4 mmol/L (20.0-31.0); Calcium 8.9 mg/dL (8.3-10.6); Chloride 103 mmol/L (98-107); Glucose 121 mg/dL (74-106); Potassium 3.6 mmol/L (3.5-5.1); Sodium 143 mmol/L (136-145)
[2025-11-21 06:24] LABS: Folate 19.4 ng/mL (>5.38); Vitamin B12 304 pg/mL (211-911)
[2025-11-21 06:36] LABS: Magnesium 1.9 mg/dL (1.6-2.6)
[2025-11-21] MEDS: dilTIAZem CD 120 MG CAPCR 240 MG PO ×2 (07:29→21:02)
--- NOTE | 2025-11-21 08:16 | PDOC.CMIN ---
Date of service: 11/21/25 Time of Service: 08:16 Care Management Initial Assmt Initial Assessment Reason for Hospitalization: atrial fib with RVR Functional Status/Living Situation Patient Presentation: Tomas was sitting up in bed when CM met with him. He was pleasant in interaction and agreeable to conversation. Tomas lives in a single family home in [place] with his Kisha, her daughter and 2 of her daughter's adult children. Tomas and Kisha have 6 children between them. Tomas had 4 boys and Kisha had one daughter when they got . They had one biological daughter together. Tomas is retired from the [employer]. He is independent at baseline and does not receive any community services. He did share that his suffered a compression fracture a few weeks ago and continues to have some difficulties, but is improving. Tomas was admitted with CHF and Afib. He has been able to maintain his oxygen saturation in the 90s on room air, but he has been a bit tachycardic with heart rate 100-130s. he has been receiving IV Lasix and is diuresing well. Town of Residence: [place] Resides with: Spouse ( Kisha) Significant Other/Family: Local Natural Supports: family Employment Status: Retired ([employer]) Instrumental Activities of Daily Living (ADLs): Independent Medications Medication Management: No Issues/Barriers identified Physical Functioning/Mobility Assistive Device: none Advance Directives Advance Directives: Do you have an Advance Directive: Y 08/07/23, 08:46 AD On File at [facility]: Y 08/07/23, 08:46 Date Asked 11/20/25 11/20/25, 08:38 AD Date Reviewed 11/20/25 Today, 08:49 COLST On File at [facility] No 01/20/24, 16:15 COLST Date Scanned Code Status Resuscitation Status Full Code Insurance Coverage/Financial Issues Insurance: BC/BS Medicare Advantage Care Team Visit Care Team Role Provider Type Camacho Barrera DO Primary Care Provider OSTEOPATHIC DOCTOR Micheal Prado MD Emergency Provider [facility] STAFF PHYSICIAN Micheal Luna Admit Provider [facility] STAFF PHYSICIAN Attending Provider Discharge Potential Discharge Needs: PCP F/U Appt Anticipated Barriers to Discharge: None Identified Patient/Family Education Needs: Review discharge instructions, discuss Ask Me Three Transportation: Private vehicle Plan: Anticipate Tomas will be discharged home with no new services when medically cleared. He will follow up with his PCP and plan of care and transport with family. CM will follow and continue to support discharge planning efforts. Social Determinants of Health Screening Social Determinants of health last assessed in clinic: 11/21/25 Will the Patient Participate in the Screening?: Yes Do you worry about having a steady place to live?: no Problems where you live: no known problems In the past 12 months, have you had to go without electric, gas, oil or water in your home?: no 1. Within the past 12 months, we worried whether our food would run out before we got money to buy more.: Never true 2. Within the past 12 months, the food we bought just didn't last and we didn't have money to get more.: Never true Has lack of transportation kept you from medical appointments or from doing things needed for daily living?: no Has anyone in your life made you feel unsafe or unsupported?: no How hard is it for you to pay for the very basics like food, housing, medical care, and heating? Would you say it is:: Not hard at all Do you want help finding or keeping work or a job?: I do not need or want help If for any reason you need help with day-to-day activities such as bathing, preparing meals, shopping, managing finances, etc., do you get the help you need?: I don?t need any help How often do you feel lonely or isolated from those around you?: Never Do you speak a language other than [place] at home?: No Does the patient want assistance with any of the above?: No Health Related Social Needs Health related social needs details: n/a PFSH All Active Problems (Updated 11/20/25 @ 15:45 by Micheal Luna) Macrocytic anemia (Acute) Severe mitral insufficiency (Acute) Alcohol use (Acute) Acute heart failure with preserved ejection fraction (HFpEF) (Acute) Acute hypoxemic respiratory failure (Acute) Atrial fibrillation with RVR (Acute) Congestive heart failure due to valvular disease (Acute) Malaise and fatigue (Acute) Mitral valve insufficiency (Chronic) Presence of Amulet left atrial appendage closure device (Acute) Placed at [facility]. Bassam Myers. History of right-sided carotid endarterectomy (Acute) Performed at [facility] on 09/15/[address] Ramiro Chandra Sleep related hypoxia (Acute) Atherosclerosis of aorta (Chronic) Low back pain (Acute) History of left-sided carotid endarterectomy (Acute) 07/16/2023 at [facility] Peripheral artery disease (Acute) 08/15/23 F/u Vascular Hyperlipidemia, unspecified (Acute) Occlusion of right vertebral artery (Acute) Carotid stenosis, bilateral (Chronic) Asympomatic Macrocytosis without anemia (Acute) Primary open angle glaucoma (POAG) of right eye, mild stage (Chronic) Tricuspid regurgitation (Acute) Beat, premature ventricular (Acute ~08/2022) 09/11/22 Cardiology 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 (Acute) Trigger middle finger of right hand (Acute 04/25/16) Abdominal aortic aneurysm (AAA) 3.0 cm to 5.5 cm in diameter in male (Chronic) Found in October 2018, needs to be rechecked every 3 years Pure hypercholesterolemia (Chronic 01/31/12) goal LDL<70 Metabolic syndrome X (Chronic 02/15/13) goal 215# 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 s/p stenting x 5 2010 or 2011 at [facility] b. presenting symptom was primarily fatigue Hypertension (Chronic) Benign prostatic hypertrophy (Chronic) Atrial fibrillation (Chronic) I48.0 Paroxysmal atrial fibrillation 10/09/20 [facility] Cardiology Medical History Fall Orthostatic hypotension Elevated troponin I level Ischemic stroke Hx of colonic polyps H/O: urinary stone Surgical History S/P carotid endarterectomy S/P ablation of atrial fibrillation (10/2018) steriotactic brain bx (01/27/15) [facility] bx brain abscess R small trigger finger release (05/28/16) [place] Family History Mother , HF at age 89. Heart disease Father , stroke HBP at age 90. Essential hypertension Brother , heart at age 82. No problems noted. Brother No problems noted. Social History (Updated 11/20/25 @ 15:25 by Micheal Luna) Smoking/Tobacco Use Status: Never Smoking risk assessment performed?: Yes Alcohol Intake: current Alcohol Intake frequency: 0-2 drinks per day Alcohol type: hard liquor Counseling provided: provider counseling Details: recommend cessation of daily use to improve atrial fibrillation Drug use: Never Substance use type: does not use Counseling given: No Adopted: No Caregiver/Support person: No Foster care: No Household members: spouse Housing: house Number of Children: 6 number of grandchildren: 13 Communication Needs: None and Corrective Lenses Education Level: college Details: Bachelor's degree Do you need help understanding health information?: Never 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 Pets and animals: No Sexually active: Yes Do you think of yourself as: straight/heterosexual Current gender identity: male What is your relationship status?: How often do you talk on the phone with friends or family?: three or more times per week How often do you get together with friends or relatives?: three or more times per week Do you belong to any clubs or organized social groups?: yes Panel score (0-1 are the most socially isolated patients): 3 What type of physical activity do you participate in: none Cassidy/Cheondoism: None Special cassidy needs: No Seatbelt use: always Drive intox or ride w/intox chuck wagon driver: No Working smoke detector in home: Yes Fire extinguisher in home: Yes Carbon monox detector in home: Yes Do you feel safe at home: Yes Do you feel safe in your relationship?: Yes Additional Social history: 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 Lives with Kisha, step daughter, and her adult kids [address] outside [place]
[2025-11-21 09:02] LABS: Glucose Negative (Negative)
[2025-11-21 09:21] LABS: WBC >50 HPF (0-5)
[2025-11-21 09:22] LABS: C & S Indicated? Yes
[2025-11-21] MEDS: Enoxaparin 40 MG/0.4 ML SYR SC (09:57)
[2025-11-21] MEDS: Atorvastatin 40 MG TAB 80 MG PO (09:57)
[2025-11-21] MEDS: Lisinopril 2.5 MG TAB PO (09:57)
[2025-11-21] MEDS: Finasteride 5 MG TAB PO (09:57)
[2025-11-21] MEDS: Clopidogrel 75 MG TAB PO (09:57)
[2025-11-21] MEDS: Furosemide 100 MG/10 ML VIAL 40 MG IVP ×2 (09:58→16:30)
[2025-11-21] MEDS: Normal Saline Flush 10 ML SYR IVP ×2 (09:58→21:11)
[2025-11-21] MEDS: dilTIAZem 25 MG/5 ML VIAL 10 MG IVP (10:00)
--- NOTE | 2025-11-21 12:38 | PHACLINREV_ITS ---
Pharmacy Admission Review Admission Clinical Review Admission Pharmacy Review: Macrocytic anemia (Acute) Severe mitral insufficiency (Acute) Alcohol use (Acute) Acute heart failure with preserved ejection fraction (HFpEF) (Acute) Acute hypoxemic respiratory failure (Acute) Atrial fibrillation with RVR (Acute) Iodinated Contrast Media Allergy (Severe, Verified 09/28/25 11:08) Anaphylaxis venom-honey bee (bee venom (honey bee)) Allergy (Severe, Verified 09/28/25 11:08) HIVES TACHYCARDIA Penicillins Allergy (Intermediate, Verified 09/28/25 11:08) HIVES shrimp Allergy (Intermediate, Verified 09/28/25 11:08) Other (See Comment) levetiracetam (From [facility]) Adverse Reaction (Severe, Verified 09/28/25 11:08) leukopenia prednisone Adverse Reaction (Severe, Verified 09/28/25 11:08) rectal bleeding and diarrhea aspirin Adverse Reaction (Intermediate, Verified 09/28/25 11:08) Nosebleeds ceftriaxone Adverse Reaction (Intermediate, Verified 09/28/25 11:08) Leukopenia simvastatin Adverse Reaction (Intermediate, Verified 09/28/25 11:08) LEG PAIN DR MCLEOD Resuscitation Status Full Code Height 6 ft 1 in Weight 96.2 kg Comments Comments/Follow Ups: Watch for addition of any QTc prolonging medications Pharmacy Admission Review Renal Dosing Renal Dosing: BUN 18 mg/dL (9-23) 11/21/25 05:33 Creatinine 0.72 mg/dL (0.73-1.18) L 11/21/25 05:33 Medications needing adjustments: Reviewed (CrCl 72.01 mL/min) Anticoagulation Anticoagulation: Hgb 12.5 g/dL (13.5-17.5) L 11/21/25 05:33 Hct 37.1 % (40.0-50.0) L 11/21/25 05:33 Plt Count 184 10^3/uL (130-400) 11/21/25 05:33 Creatinine 0.72 mg/dL (0.73-1.18) L 11/21/25 05:33 DVT Prophylaxis: Reviewed Medications: Enoxaparin (40mg daily) Relevant Labs Relevant Labs: Sodium 143 mmol/L (136-145) 11/21/25 05:33 Potassium 3.6 mmol/L (3.5-5.1) 11/21/25 05:33 Chloride 103 mmol/L (98-107) 11/21/25 05:33 Magnesium 1.9 mg/dL (1.6-2.6) 11/21/25 05:33 Electrolytes, C-Reactive P, ESR: Reviewed Cardiac Review Cardiac Review: Troponin I 24 ng/L (<54) 11/20/25 10:02 NT-Pro-B Natriuret Pep 1517 pg/mL (<300) H 11/20/25 09:02 Blood Pressure : Heart Rate 99/73 : 87 1005 Blood Pressure : Heart Rate 99/83 : 120 0801 Blood Pressure : Heart Rate 101/85 : 132 0701 Blood Pressure : Heart Rate 112/87 : 124 0601 Blood Pressure : Heart Rate 111/93 : 105 0500 Blood Pressure : Heart Rate 98/79 : 59 0401 BP, HR, EF%: Reviewed List meds needing interventions: Has orders for diltiazem CD 240mg BID, furosemide 40mg IVP BID and lisinopril 2.5mg daily. Patient received diltiazem 10mg IVP now one this morning at 1000. QTc Review QTc: Reviewed (505 from 11/20/25) List meds needing interventions: Current medications are okay IV to PO Switch IV Medications: Reviewed (furosemide) Home Meds Home Med List reviewed: Reviewed Relevent Home Meds Not ordered & why?: fluorouracil cream (PRN) Current Meds Current Medication Order Review: Reviewed Comments Comments/Follow Ups: Watch for addition of any QTc prolonging medications
[2025-11-21] MEDS: Metoprolol 5 MG/5 ML VIAL 2.5 MG IVP (14:04)
[2025-11-21] MEDS: Metoprolol 12.5 MG TAB PO ×2 (14:06→21:02)
--- NOTE | 2025-11-21 16:13 | W.PM.PROGNOT ---
Date of Service Date of service: 11/21/25 Time of Service: 16:13 Assessment and Plan Assessment and plan (1) Atrial fibrillation with RVR: Status: Acute Assessment and plan: Rate was controlled after 25mg and 10mg of IV diltiazem. Rate high again 11/21 AM, not great response to another 10mg diltiazem, but responded well to 2.5mg metoprolol He cut his diltiazem in to daily, prior to admission. He has been back on 480mg total dose (240mg BID) but pulse still high Started 12.5mg q6 metoprolol orally Daily alcohol use, possible untreated ANGE also could be contributing. He will refrain from EtOH and consider sleep study as outpatient (2) Acute heart failure with preserved ejection fraction (HFpEF): Status: Acute Assessment and plan: Exam and CXR consistent with fluid overload, CHF Preserved [place]F [place] 65% in [place] [facility] similar to [place] during his procedure. Afib with RVR is acute trigger, severe MR may be also playing a role. They are related of course. Continue diuresis, repeat echo done today with read pending. (3) Acute hypoxemic respiratory failure: Status: Acute Assessment and plan: Secondary to above, has resolved (though some O2 overnight likely related to untreated ANGE) (4) Coronary disease: Status: Chronic Assessment and plan: On statin and clopidogrel, continue (5) Severe mitral insufficiency: Status: Acute Assessment and plan: As above. Cardiology plan had been repeat the echo in December, done today with acute change. (6) Macrocytic anemia: Status: Acute Assessment and plan: could be alcohol related. Last B12 in 2022 low normal. Repeat with folate normal though B12 still low normal. Follow as outpatient, could get methylmelonic acid or just supplement B12 Discharge Planning Discharge Planning: home when diuresed, stable rate control on oral medications. Expect 11/22. MS status today. Subjective Subjective Patient reports: tolerating a regular diet and voiding w/o difficulty; denies diarrhea, vomiting, shortness of breath or fever Interval history since last seen: Was feeling well last evening, but overnight felt heart fast again, makes him feel run down and fatigued. No chest pain. Exam Narrative Exam Narrative: GEN: Alert and oriented, no acute distress at rest. LUNGS: normal effort, slight rales just at bases (improved) CV: Irregularly irregular. 2/6 murmur at apex, no gallops, or rubs. No elevation JVP. ABD: active bowel sounds, soft, nontender and nondistended. No masses. EXT: no cyanosis, clubbing. trace gary ankle edema Objective Last Vital Signs Temp 36.1 C L 11/21/25 13:00 Pulse 67 11/21/25 14:14 Resp 27 H 11/21/25 14:14 BP 106/72 11/21/25 14:14 Pulse Ox 92 11/21/25 14:14 Laboratory Results - last 24 hr 11/21/25 11/21/25 05:33 08:48 WBC 7.61 RBC 3.89 L Hgb 12.5 L Hct 37.1 L MCV 95 MCH 32.1 MCHC 33.7 RDW 13.6 Plt Count 184 MPV 11.0 Sodium 143 Potassium 3.6 Chloride 103 Carbon Dioxide 30.4 Anion Gap 9.6 BUN 18 Creatinine 0.72 L Est GFR (CKD-EPI 2020) 105.03 Glucose 121 H Calcium 8.9 Magnesium 1.9 Vitamin B12 304 Folate 19.4 Urine Color Yellow Urine Clarity Cloudy Urine pH 5.5 Ur Specific [place] >= 1.030 H Urine Protein >=300 H Urine Ketones 15 H Urine Blood Large H Urine Nitrite Negative Urine Bilirubin Small H Urine Urobilinogen 4.0 H Ur Leukocyte Esterase Moderate H Urine RBC Urine WBC >50 H Ur Epithelial Cells Not Applicable Urine Crystals Not Applicable Urine Bacteria Urine Mucus Not Applicable Ur Culture Indicated? Yes Urine Glucose Negative PAWSS Have you Been Recently Intoxicated or Drunk Within the Last 30 days?: No Have you Ever Experienced Previous Episodes of Alcohol Withdrawal?: No Have you ever Experienced Withdrawal Seizures?: No Have you ever Experienced Delirium Tremens(DT)s?: No Have you ever undergone Alcohol Rehabilitation Treatment (i.e, inpt ot outpatient treatment programs)?: No Have you ever Experienced Blackouts?: No Have you ever Combined Alcohol with other Downers within the last 90 days?: No Have you ever Combined Alcohol with any other Substance of Abuse during the last 90 days?: No Positive Blood Alcohol level on Presentation? [PCS.BAL]: No Evidence of Increased Autonomic Activity (i.e. HR>120, tremor, sweating, agitation, nausea)?: No Result: 0 VTE Prohylaxis Risk Level: Moderate/High Risk Contraindications: None Prophylaxis: Pharmacologic Time Spent with Patient Time Spent with Patient: >50 minutes Time was spent: preparing to see the patient(eg.review tests), obtaining and/or reviewing separately otained hiistory, ordering medications,tests, procedures, referring, communicating with other health healthcare specialist, indepentently interpreting results, counseling the patient and care coordination
[2025-11-21] MEDS: Timolol 0.5% 5 ML BTL OP (21:10)
[2025-11-22] VITALS: PULSE 93; RESP 17
[2025-11-22 00:01] VITALS: BP 113/64; PULSE 74; PULSE 90; RESP 19; O2SAT 91
[2025-11-22] MEDS: Metoprolol 12.5 MG TAB PO ×2 (03:12→09:47)
[2025-11-22 04:47] VITALS: BP 112/79; PULSE 78; RESP 17; TEMP 36.4; O2SAT 95
[2025-11-22 07:11] VITALS: BP 105/79; PULSE 66; RESP 20; TEMP 36.9; O2SAT 95
--- NOTE | 2025-11-22 08:45 | PDOC.CMPRO ---
Date of service: 11/22/25 Time of Service: 08:45 Care Management Progress Note Discharge Potential Discharge Needs: PCP F/U Appt Anticipated Barriers to Discharge: None Identified Patient/Family Education Needs: Review discharge instructions, discuss Ask Me Three Transportation: Private vehicle Plan: Anticipate Tomas will be discharged home with no new services when medically cleared. He will follow up with his PCP and plan of care and transport with family. CM will follow and continue to support discharge planning efforts. Social Determinants of Health Screening Social Determinants of health last assessed in clinic: 11/21/25 Will the Patient Participate in the Screening?: Yes Do you worry about having a steady place to live?: no Problems where you live: no known problems In the past 12 months, have you had to go without electric, gas, oil or water in your home?: no Has lack of transportation kept you from medical appointments or from doing things needed for daily living?: no Has anyone in your life made you feel unsafe or unsupported?: no How hard is it for you to pay for the very basics like food, housing, medical care, and heating? Would you say it is:: Not hard at all Do you want help finding or keeping work or a job?: I do not need or want help If for any reason you need help with day-to-day activities such as bathing, preparing meals, shopping, managing finances, etc., do you get the help you need?: I don?t need any help How often do you feel lonely or isolated from those around you?: Never Do you speak a language other than [place] at home?: No Does the patient want assistance with any of the above?: No Health Related Social Needs Health related social needs details: n/a
[2025-11-22] MEDS: Furosemide 40 MG/4 ML VIAL IVP (09:46)
[2025-11-22] MEDS: Normal Saline Flush 10 ML SYR IVP (09:46)
[2025-11-22] MEDS: Enoxaparin 40 MG/0.4 ML SYR SC (09:47)
[2025-11-22] MEDS: Atorvastatin 40 MG TAB 80 MG PO (09:47)
[2025-11-22] MEDS: dilTIAZem CD 120 MG CAPCR 240 MG PO (09:47)
[2025-11-22] MEDS: Lisinopril 2.5 MG TAB PO (09:47)
[2025-11-22] MEDS: Finasteride 5 MG TAB PO (09:47)
[2025-11-22] MEDS: Clopidogrel 75 MG TAB PO (09:47)
[2025-11-22] MEDS: Timolol 0.5% 5 ML BTL OP (09:48)
[2025-11-22 11:13] VITALS: BP 124/89; PULSE 61; RESP 17; TEMP 36.1; O2SAT 96
--- NOTE | 2025-11-22 12:09 | PDOC.CMDIS ---
Date of service: 11/22/25 Time of Service: 12:10 LACE Index Scoring Tool Questions: Length of Stay (in days): 2 Was the patient admitted via the E.D.?: Yes Comorbidities: Cerebrovascular Disease, PVD and Congestive Heart Failure E.D. Visits: 1 Answers: Total Score: 11 Risk of Readmission: High Risk Care Management Discharge Plan Reason for Hospitalization: Afib with RVR Discharge Plan: Tomas will be discharged home with no new services. He will follow up with his PCP and plan of care and transport with family. Patient/Family Education Needs: Review discharge instructions, limitations, follow up plan and discuss Ask Me Three SDOH Health Related Social Needs: Health related social needs details n/a Health related social needs details: n/a
--- NOTE | 2025-11-22 12:35 | W.NUTRFU ---
Date of service: 11/22/25 Time of Service: 09:30 Nutrition Note NOTE: Reviewed pt chart and visited with Tomas briefly yesterday. Tolerating regular diet with good intake and positive feedback on food quality being served. Pt denies significant weight changes (wt hx shows increasing weight trend) concerns with chewing and swallowing. Shellfish allergy noted and relayed to kitchen. Declined NFPE today. Anticipates discharge later today. No significant nutrition dx at this time of initial assessment. Let him know of outpatient nutrition services available if wanting some guidance with weight reduction. Will continue to monitor - Time Spent in Nutritional Counseling and Treatment: 5 min
--- NOTE | 2025-11-22 13:19 | W.PM.DS.N ---
Date of service: 11/22/25 Time of Service: 13:20 DS: Diagnosis Discharge Diagnosis (1) Atrial fibrillation with RVR: Status: Acute (2) Acute heart failure with preserved ejection fraction (HFpEF): Status: Acute (3) Acute hypoxemic respiratory failure: Status: Acute (4) Coronary disease: Status: Chronic (5) Severe mitral insufficiency: Status: Acute (6) Macrocytic anemia: Status: Acute Discharge Plan Disposition Patient Disposition: Home Condition: Stable Discharge Details Reason For Visit: Atrial Fibrillation with RVR Admit Date/Time: 11/20/25 11:14 Admit Provider: Micheal Luna Attending Provider: Micheal Luna [facility] Hospital Course: 80 yo M with history of chornic Afib s/p atrial appendage amulet May 2025, severe MR, CAD s/p PCI/BRENDA x 5 in 2006, s/p CVA (left frontoparietal) 2022, s/p gary CEA , brain abscesses 2014 who presented with acutely worse SOB and was found to be in atrial fibrillation with RVR. His rate was initially better controlled with pushes of IV diltiazem, but small doses of metoprolol the following day worked much better along with his regular long acting diltiazem. He received a total of 50mg of metoprolol over 24 hours prior to discharge, and was discharged on the long acting version along with his diltiazem. He initially had signs of fluid overload and was treated with furosmide IV 40mg BID, but his symtoms were more related to the rate. He was discharged on his previous 20mg oral furosemide. SGLT2i could be considered as outpatient. His echocardiogram confirmed normal LVEF. He had previously diagnosis severe MR, but his echo here was read as moderate mitral stenosis and reguritation. He should follow up with his obstetrics gynecology physician. We did talk about not drinking alcohol, treating ANGE, and losing weight to help decrease atrial fibrillation. He should see his PCP in the next week to titrate rate control and monitor blood pressure. Home Meds and New Rx's Prescriptions: New metoprolol succinate 50 mg tablet extended release 24 hr 50 mg PO QPM Qty: 30 0RF Continued fluorouracil 5 % cream 1 applic topical BID PRN (Reason: Ear lesion) finasteride 5 mg tablet 5 mg PO DAILY Qty: 90 3RF lisinopril 2.5 mg tablet 2.5 mg PO DAILY Qty: 90 3RF atorvastatin 80 mg tablet 80 mg PO DAILY Qty: 90 3RF diltiazem HCl 240 mg capsule,extended release 24hr See Rx Instructions .ROUTE .COMPLEX Qty: 180 3RF Dose Instruction: TAKE ONE CAPSULE BY MOUTH TWICE A DAY Rx Instructions: TAKE ONE CAPSULE BY MOUTH TWICE A DAY furosemide [Lasix] 20 mg tablet 20 mg PO DAILY Qty: 90 3RF timolol maleate 0.5 % drops 1 drp ophthalmic (eye) BID Patient Comments: INSTILL ONE DROP IN THE LEFT EYE TWO TIMES A DAY clopidogrel 75 mg tablet 75 mg PO DAILY Discharge Instructions Instructions: Atrial Fibrillation (DC) Additional Instructions: I would avoid daily alcohol use as we discussed. This will help your heart. You should also consider evaluation and treatment of sleep apnea. We started you on metoprolol to take along with the diltiazem. You can take the diltiazem as one dose if you prefer (480mg). You are due to start the metoprolol succinate that this evening. Your PCP may further adjust your medication. Stand Alone Forms: Portal Information, Nursing Discharge Form Referrals: Camacho Barrera DO [Primary Care Provider, Medicine] Referral Note: Your PCP will reach out to you to setup a follow up appointment. If you do not hear from them please give them a call. Activity:: Activity as Tolerated Equipment/Supplies:: No Equipment Needed Diet:: Low Sodium Discharge Orders Discharge Orders: Discharge Order (Routine); Ordered 11/22/25 Ordered By: Micheal Luna Discharge Data Discharge Date/Time-TO BE ENTERED AT DEPARTURE: 11/22/25 14:26 DS: Summary Time Spent with Patient providing and/or coordinating discharge services: Greater than 30 minutes Status at Discharge Functional status at discharge: independent ambulation Overall status at discharge: patient is back to baseline Mental Status: mental status grossly normal Speech and Movement: speech and movement normal Mood: congruent mood Affect: normal affect Quality:SDOH Health Related Social Needs: Health related social needs details n/a Health related social needs details: n/a Exam Narrative Exam Narrative: GEN: Alert and oriented, no acute distress at rest. LUNGS: normal effort, lungs now clear (rales resolved) CV: Irregularly irregular. 2/6 murmur at apex, no gallops, or rubs. No elevation JVP. ABD: active bowel sounds, soft, nontender and nondistended. No masses. EXT: no cyanosis, clubbing. trace gary ankle edema Psych Mental Status: mental status grossly normal Speech and Movement: speech and movement normal Mood: congruent mood Affect: normal affect DS: Data Vitals/I&O Vitals and I&O: Vital Signs Temperature 36.1 C L 11/22/25 11:13 Temperature Source Temporal Artery Scan 11/22/25 11:13 Pulse 61 11/22/25 11:13 Pulse 90 11/22/25 00:01 Respiratory Rate 17 11/22/25 11:13 Blood Pressure 124/89 11/22/25 11:13 Blood Pressure Mean 100 11/22/25 11:13 Blood Pressure Position Sitting 11/20/25 08:41 Pulse Oximetry 96 11/22/25 11:13 Oxygen Delivery Method Room Air 11/22/25 11:13 Oxygen Flow Rate 0 11/22/25 11:13 Pain Level 0 11/21/25 07:31 Comment Metoprolol 12.5 mg po given 11/21/25 14:14 Intake & Output 11/21/25 11/22/25 11/22/25 23:59 11:59 23:59 Intake Total 500 / 740 480 / 660 180 / 660 Output Total 550 / 1825 Balance -50 / -1085 480 / 660 180 / 660 Intake: Oral 500 / 740 480 / 660 180 / 660 Output: Urine 550 / 1825 Other: Urine Color Yellow Urine Appearance Clear Urine Odor Normal Comment unknown amount mixed with stool Stool Size Moderate Stool Characteristics Soft Formed Brown Data Completed and Pending Pending Labs at Discharge: 11/20/25 11/20/25 11/21/25 09:02 10:02 05:33 WBC 10.68 7.61 RBC 3.94 L 3.89 L Hgb 12.6 L 12.5 L Hct 38.3 L 37.1 L MCV 97 H 95 MCH 32.0 32.1 MCHC 32.9 33.7 RDW 13.7 13.6 Plt Count 203 184 MPV 10.8 11.0 Immature Gran % 0.3 Neutrophils % 79.3 Lymphocytes % 7.8 Monocytes % 6.3 Eosinophils % 6.0 Basophils % 0.3 Nucleated RBC % 0.0 Absolute Neutrophils 8.48 H Absolute Lymphocytes 0.83 L Absolute Monocytes 0.67 Absolute Eosinophils 0.64 Absolute Basophils 0.03 D-Dimer 965 H VBG pH 7.38 VBG pCO2 47 VBG pO2 33 VBG HCO3 28 VBG Total CO2 26 VBG O2 Saturation 56 VBG Base Excess 3 Sodium 141 143 Potassium 3.9 3.6 Chloride 102 103 Carbon Dioxide 27.4 30.4 Anion Gap 11.6 H 9.6 BUN 18 18 Creatinine 0.80 0.72 L Est GFR (CKD-EPI 2020) 93.01 105.03 Glucose 139 H 121 H Calcium 9.1 8.9 Magnesium 1.8 1.9 Total Bilirubin 1.0 AST 22 ALT 23 Alkaline Phosphatase 115 Troponin I 22 24 NT-Pro-B Natriuret Pep 1517 H Total Protein 6.9 Albumin 4.0 Vitamin B12 304 Folate 19.4 Urine Color Urine Clarity Urine pH Ur Specific [place] Urine Protein Urine Ketones Urine Blood Urine Nitrite Urine Bilirubin Urine Urobilinogen Ur Leukocyte Esterase Urine RBC Urine WBC Ur Epithelial Cells Urine Crystals Urine Bacteria Urine Mucus Ur Culture Indicated? Urine Glucose 11/21/25 08:48 WBC RBC Hgb Hct MCV MCH MCHC RDW Plt Count MPV Immature Gran % Neutrophils % Lymphocytes % Monocytes % Eosinophils % Basophils % Nucleated RBC % Absolute Neutrophils Absolute Lymphocytes Absolute Monocytes Absolute Eosinophils Absolute Basophils D-Dimer VBG pH VBG pCO2 VBG pO2 VBG HCO3 VBG Total CO2 VBG O2 Saturation VBG Base Excess Sodium Potassium Chloride Carbon Dioxide Anion Gap BUN Creatinine Est GFR (CKD-EPI 2020) Glucose Calcium Magnesium Total Bilirubin AST ALT Alkaline Phosphatase Troponin I NT-Pro-B Natriuret Pep Total Protein Albumin Vitamin B12 Folate Urine Color Yellow Urine Clarity Cloudy Urine pH 5.5 Ur Specific [place] >= 1.030 H Urine Protein >=300 H Urine Ketones 15 H Urine Blood Large H Urine Nitrite Negative Urine Bilirubin Small H Urine Urobilinogen 4.0 H Ur Leukocyte Esterase Moderate H Urine RBC Urine WBC >50 H Ur Epithelial Cells Not Applicable Urine Crystals Not Applicable Urine Bacteria Urine Mucus Not Applicable Ur Culture Indicated? Yes Urine Glucose Negative Preliminary micro results at discharge 11/21/25 08:48 Urine - Reflex from Ua Urine Culture - Preliminary Enterococcus species PFSH All Active Problems (Updated 11/20/25 @ 15:45 by Micheal Luna) Macrocytic anemia (Acute) Severe mitral insufficiency (Acute) Alcohol use (Acute) Acute heart failure with preserved ejection fraction (HFpEF) (Acute) Acute hypoxemic respiratory failure (Acute) Atrial fibrillation with RVR (Acute) Congestive heart failure due to valvular disease (Acute) Malaise and fatigue (Acute) Mitral valve insufficiency (Chronic) Presence of Amulet left atrial appendage closure device (Acute) Placed at [facility] by Dr. Bassam Myers. History of right-sided carotid endarterectomy (Acute) Performed at [facility] on 09/15/[address] Ramiro Chandra Sleep related hypoxia (Acute) Atherosclerosis of aorta (Chronic) Low back pain (Acute) History of left-sided carotid endarterectomy (Acute) 07/16/2023 at [facility] Peripheral artery disease (Acute) 08/15/23 F/u Vascular Hyperlipidemia, unspecified (Acute) Occlusion of right vertebral artery (Acute) Carotid stenosis, bilateral (Chronic) Asympomatic Macrocytosis without anemia (Acute) Primary open angle glaucoma (POAG) of right eye, mild stage (Chronic) Tricuspid regurgitation (Acute) Beat, premature ventricular (Acute ~08/2022) 09/11/22 Cardiology 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 (Acute) Trigger middle finger of right hand (Acute 04/25/16) Abdominal aortic aneurysm (AAA) 3.0 cm to 5.5 cm in diameter in male (Chronic) Found in October 2018, needs to be rechecked every 3 years Pure hypercholesterolemia (Chronic 01/31/12) goal LDL<70 Metabolic syndrome X (Chronic 02/15/13) goal 215# 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 s/p stenting x 5 2010 or 2011 at [facility] b. presenting symptom was primarily fatigue Medical History Fall Orthostatic hypotension Elevated troponin I level Ischemic stroke Hx of colonic polyps H/O: urinary stone Surgical History S/P carotid endarterectomy S/P ablation of atrial fibrillation (10/2018) steriotactic brain bx (01/27/15) [facility] bx brain abscess R small trigger finger release (05/28/16) laura Family History Mother , HF at age 89. Heart disease Father , stroke HBP at age 90. Essential hypertension Brother , heart at age 82. No problems noted. Brother No problems noted. Social History (Updated 11/20/25 @ 15:25 by Micheal Luna) Smoking/Tobacco Use Status: Never Smoking risk assessment performed?: Yes Alcohol Intake: current Alcohol Intake frequency: 0-2 drinks per day Alcohol type: hard liquor Counseling provided: provider counseling Details: recommend cessation of daily use to improve atrial fibrillation Drug use: Never Substance use type: does not use Counseling given: No Adopted: No Caregiver/Support person: No Foster care: No Household members: spouse Housing: house Number of Children: 6 number of grandchildren: 13 Communication Needs: None and Corrective Lenses Education Level: college Details: Bachelor's degree Do you need help understanding health information?: Never 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 Pets and animals: No Sexually active: Yes Do you think of yourself as: straight/heterosexual Current gender identity: male What is your relationship status?: How often do you talk on the phone with friends or family?: three or more times per week How often do you get together with friends or relatives?: three or more times per week Do you belong to any clubs or organized social groups?: yes Panel score (0-1 are the most socially isolated patients): 3 What type of physical activity do you participate in: none Cassidy/Restorationism: None Special cassidy needs: No Seatbelt use: always Drive intox or ride w/intox parts delivery driver: No Working smoke detector in home: Yes Fire extinguisher in home: Yes Carbon monox detector in home: Yes Do you feel safe at home: Yes Do you feel safe in your relationship?: Yes Additional Social history: 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 Lives with Kisha, step daughter, and her adult kids [address] [place] Time Spent with Patient Time Spent with Patient: <45 minutes Time was spent: preparing to see the patient(eg.review tests), obtaining and/or reviewing separately otained hiistory, ordering medications,tests, procedures, referring, communicating with other health career center advisor, indepentently interpreting results, counseling the patient and care coordination
--- NOTE | 2025-11-22 19:23 | W.PC.ACHO ---
Registration Status: DIS IN Primary Language: Preferred Language: Syriac ED Information & Data Chief Complaint Arrhythmia 11/20/25 12:30 Chief Complaint Arrhythmia 11/20/25 08:41 Triage Note Pt JUANI complaining of 11/20/25 08:41 waking up this morning around 0430 with SOB. EMS reports he has a hx of taking Lasix, but no known lung disease, per pt. Also report he is not a great historian. Pt has HR 120- 150s. Forgot lisinopril last night, took it this morning . Unsure if he took his diltiazem. Sates I took one other pill (with lisinopril ), but didn't take the rest. Medical / Surgical History (Last Reviewed 11/20/25 @ 15:23 by Micheal Luna) Fall Orthostatic hypotension Elevated troponin I level Ischemic stroke Hx of colonic polyps H/O: urinary stone (Last Reviewed 11/20/25 @ 15:23 by Micheal Luna) S/P carotid endarterectomy S/P ablation of atrial fibrillation (10/2018) steriotactic brain bx (01/27/15) R small trigger finger release (05/28/16) Most Recent Vital Signs Temperature 36.1 C L 11/22/25 11:13 Temperature Source Temporal Artery Scan 11/22/25 11:13 Pulse 61 11/22/25 11:13 Pulse 90 11/22/25 00:01 Respiratory Rate 17 11/22/25 11:13 Blood Pressure 124/89 11/22/25 11:13 Blood Pressure Mean 100 11/22/25 11:13 Blood Pressure Position Sitting 11/20/25 08:41 Pulse Oximetry 96 11/22/25 11:13 Oxygen Delivery Method Room Air 11/22/25 11:13 Oxygen Flow Rate 0 11/22/25 11:13 Pain Level 0 11/21/25 07:31 Comment Metoprolol 12.5 mg po given 11/21/25 14:14 Allergies Iodinated Contrast Media Allergy (Severe, Verified 09/28/25 11:08) Anaphylaxis venom-honey bee (bee venom (honey bee)) Allergy (Severe, Verified 09/28/25 11:08) HIVES TACHYCARDIA Bumblebees Penicillins Allergy (Intermediate, Verified 09/28/25 11:08) HIVES shrimp Allergy (Intermediate, Verified 09/28/25 11:08) Other (See Comment) Hives, nausea levetiracetam (From Keppra) Adverse Reaction (Severe, Verified 09/28/25 11:08) leukopenia very low WBC prednisone Adverse Reaction (Severe, Verified 09/28/25 11:08) rectal bleeding and diarrhea aspirin Adverse Reaction (Intermediate, Verified 09/28/25 11:08) Nosebleeds even 81 mg QOD still lead to epistaxis 05/2016 ceftriaxone Adverse Reaction (Intermediate, Verified 09/28/25 11:08) Leukopenia stopped along with Keppra 03/01/2015 due to leukopenia simvastatin Adverse Reaction (Intermediate, Verified 09/28/25 11:08) LEG PAIN DR MCLEOD IV IV Catheter Type [Right Wrist] Saline Lock IV Catheter Type [Left Saline Lock Antecubital] IV Catheter Gauge [Right Wrist 20 ] IV Catheter Gauge [Left 20 Antecubital] 11/21/25 08:48 Urine Culture - Preliminary Urine - Reflex from Ua Enterococcus species Intake and Output - 24 Hour Total 11/20/25 08:28 thru 11/22/25 12:16 Intake Total 1740 Output Total 5075 Balance -3335 Weight 96.2 kg Intake: Oral 1740 Output: Urine 5075 Other: Urine Color Yellow Urine Appearance Clear Urine Odor Normal Comment unknown amount mixed with stool Stool Size Moderate Stool Characteristics Soft Formed Brown # Bowel Movements 1 Falls Risk Assessment History of Falls Previous History 11/20/25 12:30 Contributing Factors Incontinence,Medications 11/20/25 12:30 Ambulatory Aids Independent 11/20/25 12:30 Tubes/Lines With any additional score 11/20/25 12:30 Gait Evaluation W/any additional score 11/20/25 12:30 Cognition No cognitive impairment 11/20/25 12:30 Fall Total Score 61 11/20/25 12:30 Level of Risk High Risk 11/20/25 12:30 Problems (Last Reviewed 11/20/25 @ 15:23 by Micheal Luna) Macrocytic anemia (Acute) Severe mitral insufficiency (Acute) Alcohol use (Acute) Acute heart failure with preserved ejection fraction (HFpEF) (Acute) Acute hypoxemic respiratory failure (Acute) Atrial fibrillation with RVR (Acute) Coronary disease (Chronic) Benign prostatic hypertrophy (Chronic) Attestation Statement: By documenting the first initial, last name, and credentials of the reporting nurse below, both parties acknowledge that all relevant information regarding the patient handoff has been communicated, and that all questions have been addressed to ensure continuity and safety of care. Additional Patient Information/Comments: Report Received From: Juaquin Blake RN ICU
== END 2025-11-22 14:26 | disposition home or self-care (01) | DRG 308 ==
LOC: ER 11:22 → ICU 13:11 → MS 11-22 04:41
PROVIDERS: Admitting Provider Family Medicine; Emergency Provider Emergency Medicine; PCP Family Medicine; Responsible Provider Family Medicine; Visit Provider Family Medicine
DX: I48.0 Paroxysmal atrial fibrillation (principal); I50.31 Acute diastolic (congestive) heart failure; J96.01 Acute respiratory failure with hypoxia; I25.10 Atherosclerotic heart disease of native coronary artery without angina pectoris; G47.33 Obstructive sleep apnea (adult) (pediatric); D53.9 Nutritional anemia, unspecified; I11.0 Hypertensive heart disease with heart failure; Z86.73 Personal history of transient ischemic attack (TIA), and cerebral infarction without residual deficits; Z79.899 Other long term (current) drug therapy; F10.90 Alcohol use, unspecified, uncomplicated; N40.0 Benign prostatic hyperplasia without lower urinary tract symptoms; I73.9 Peripheral vascular disease, unspecified; Z95.818 Presence of other cardiac implants and grafts; I08.1 Rheumatic disorders of both mitral and tricuspid valves; Z95.5 Presence of coronary angioplasty implant and graft; R53.81 Other malaise; I70.0 Atherosclerosis of aorta; E78.00 Pure hypercholesterolemia, unspecified; E88.810 Metabolic syndrome
CPT/HCPCS: 00123; 36415; 80048; 80053; 82805; 85027; 87077; 93005; 93308; 96374; 96375; 96376; 99291; J1650; 71045; 81003; 81015; 82607; 82746; 83735; 83880; 84484; 85025; 85379; 87086; 87186; 93010; 93306; 99223; 99233; 99238; J1938; J3490